=== PATIENT | male | born 1960 | race Caucasian/White ===

== ENCOUNTER 2016-05-06 15:39 | Emergency (ER) | payer MEDICAID, OTHER ==
[~2016-05-06] VITALS: Ht 177.8 cm; Wt 63.0 kg
[~2016-05-06 15:39] MED LIST: Z.0.NO CURRENT MEDS
[2016-05-06 15:48] VITALS: BP 131/89; PULSE 79; RESP 16; TEMP 98.7; O2SAT 99
[2016-05-06 16:21] LABS: GLUCOSE,URINE NEG (NEG); KETONE, URINE NEG (NEG); NITRITE,URINE NEG (NEG); PH, URINE 5.5 (5.0-8.5)
[2016-05-06 16:23] LABS: BLOOD, URINE MOD (NEG)
[2016-05-06 16:26] LABS: METHOD OF COLLECTION CLEAN CATCH; URINE COLOR YELLOW (YELLW/STRAW)
[2016-05-06 16:27] LABS: COMMENT (UR) CULT NOT INDICATED; CULTURE IF INDICATED CULT NOT INDICATED; RBC, URINE 0-3 /hpf (0-3)
[2016-05-06] MEDS ORDERED: KETOROLAC TROMETHAMINE 60 MG/2 ML (IM) VIAL IM ONE (16:45)
--- NOTE | 2016-05-06 16:48 | PD ---
HPI Chief Complaint: Back/ Neck Pain or Injury Time Seen by Provider: 16:22 Travel History International Travel<30 days: No Contact w/Intl Traveler<30days: No Traveled to known affect area: No History of Present Illness HPI Is a 55-year-old man who presents to the emergency department complaining of low back pain is been ongoing for the past month. No worse on the left. There is been no radiation. No associated numbness tingling weakness or gait instability. 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 The nikhil most that time but does do some heavy lifting. No fevers or chills. No urinary symptoms. No other complaints. History Past Medical History Medical History: Denies Significant Hx Tetanus Vaccination: > 5 Years Influenza Vaccination: No Past Surgical History Surgical History: No Previous Surgery Social History Alcohol Use: Yes (2 BEERS, NIGHTLY; LAST DRINK 05/05/16) Tobacco Use: Yes (1 PPD) Allergies-Medications (Allergen,Severity, Reaction): Coded Allergies: No Known Allergies (Unverified , 05/06/16) Reported Meds & Prescriptions Reported Meds & Active Scripts Active Review of Systems Except as stated in HPI: all other systems reviewed are Neg Physical Exam Narrative GENERAL: Well-developed, well-nourished, no acute distress. SKIN: Warm and dry. CARDIOVASCULAR: Warm and well perfused. RESPIRATORY: Normal rate and effort. MUSCULOSKELETAL: Normal appearance of back and bilateral lower extremities. No ecchymosis, swelling, bruising. No rashes. Normal muscle bulk and tone. NEUROLOGICAL: Strength full 5/5 and equal in bilateral lower extremities in proximal and distal muscle groups. 5/5 in large toe flexion and extension. Sensation is intact to light touch throughout. Reflexes symmetric. No clonus. PSYCHIATRIC: Appropriate mood and affect; insight and judgment normal. Data Data Last Documented VS Vital Signs Date Time Temp Pulse Resp B/P Pulse Ox O2 Delivery O2 Flow Rate FiO2 05/06/16 15:48 98.7 79 16 131/89 99 Orders Urinalysis - C+S If Indicated (05/06/16 15:52) Spine, Lumbar Comp W/Obliq (05/06/16 ) Ed Poc Ultrasound (05/06/16 ) Ketorolac Inj (Toradol Inj) (05/06/16 16:45) Labs Laboratory Tests Test 05/06/16 15:55 Urine Collection Type CLEAN CATCH Urine Color YELLOW Urine Turbidity CLEAR Urine pH 5.5 Urine Specific [place] 1.021 Urine Protein NEG mg/dL Urine Glucose (UA) NEG mg/dL Urine Ketones NEG mg/dL Urine Occult Blood MOD Urine Nitrite NEG Urine Bilirubin NEG Urine Leukocyte Esterase NEG Urine RBC 0-3 /hpf Microscopic Urinalysis Comment CULT NOT INDICATED MDM Medical Decision Making Medical Screen Exam Complete: Yes Emergency Medical Condition: Yes Interpretation(s) UA negative Lumbar spine x-ray: Multilevel degenerative disease with small marginal predominantly anterior osteophytes her of the lumbar spine. No acute fracture or listhesis. Differential Diagnosis Strain or sprain, fracture, AAA, contusion, other Narrative Course Medical decision-making 52-year-old male presents nontraumatic low back pain. 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 Bedside ultrasound shows no evidence AAA. Urine is negative. We'll check x-ray for any evidence of fracture or other. Procedures Procedure Narrative Point of care ultrasound: Focus transabdominal ultrasound performed by me at the bedside to evaluate for evidence of AAA. No AAA. Diagnosis Primary Impression: Low back pain Qualified Code: M54.5 - Acute midline low back pain without sciatica Additional Instructions: Take Naprosyn as needed for pain. Follow-up with your primary doctor for not feeling improved in the next 2-3 weeks. Return to the emergency department for any worsening pain, numbness tingling weakness, difficulty walking, or any other new or worsening symptoms. Med/Other Pt SpecificInfo: Prescription(s) given Scripts Naproxen (Naprosyn)500 Mg Roy469 Mg PO BID PRN (PAIN SCALE 1 TO 10) #20 TAB Prov:Yosef Jacobsen MD 05/06/16 Disposition: 01 DISCHARGE HOME Condition: Stable Yosef Jacobsen MD May 06, 2016 16:48
--- NOTE | 2016-05-06 17:00 | RADHPO ---
EXAM DATE/TIME: 05/06/2016 16:38 [facility] COMPARISON: No previous studies available for comparison. INDICATIONS : Lumbar spine pain. No known injury. MEDICAL HISTORY : None. SURGICAL HISTORY : None. ENCOUNTER: Initial ACUITY: 1 month PAIN SCORE: 8/10 LOCATION: Bilateral lumbar spine FINDINGS: There are five non-rib bearing vertebral bodies. The vertebral bodies are in normal alignment withou t evidence of subluxation or scoliosis. Multilevel degenerative disc disease is identified predominan tly anterior marginal osteophytes from L1-2 through L4-5. The posterior elements are intact without evidence of spondylolysis. The pedicles are intact. Bony mineralization is normal. No fracture is identified. CONCLUSION: 1. Multilevel degenerative disc disease with small, marginal, predominantly anterior osteophytes thro ughout the lumbar spine. 2. No acute fracture or listhesis. Joni Shelton MD on May 06, 2016 at 16:57 Board Certified Radiologist. This report was verified electronically.
[2016-05-06] MEDS ORDERED: NAPR500 PO (17:03)
== END 2016-05-06 17:16 | disposition home or self-care (01) ==
LOC: PHED 15:39
DX: M54.5 Low back pain (principal); F17.210 Nicotine dependence, cigarettes, uncomplicated
CPT/HCPCS: 72110; 81001; 96372; 99283; J1885

== ENCOUNTER 2016-10-07 14:20 | Inpatient (IN) | payer OTHER ==
[~2016-10-07] VITALS: Ht 177.8 cm; Wt 65.0 kg
[2016-10-07] VITALS (8 sets, daily range): BP systolic 120–128; BP diastolic 64–79; PULSE 74–78; RESP 16–24; TEMP 98.2; O2SAT 100
[~2016-10-07 14:20] MED LIST changes: +GELFOAM SIZE 100 OTHER ONE; +GENTAMICIN SULFATE 80 MG/2 ML VIAL IRRIGATION ONE; +LACTATED RINGER'S 1000 ML INJ 1,000 ML IV ONE; +NAPR500 PO; +PHENYLEPH/NS 1000 MCG/10 ML SYR IV ONE; +PROPOFOL 200 MG/20 ML AMP IV ONE; +THROMBIN (TOPICAL) 5,000 UNIT VIAL TOPICAL ONE; -Z.0.NO CURRENT MEDS; +ePHEDrine/NS 25 MG/5 ML SYRINGE IV ONE
[2016-10-07] MEDS ORDERED: IOHEXOL 350 MG/ML 10 ML VIAL (for RAD DIAG) IVCONTRAST ONE (14:21)
--- NOTE | 2016-10-07 14:53 | PD ---
HPI Chief Complaint: Neuro Symptoms/ Deficits Time Seen by Provider: 14:26 Travel History International Travel<30 days: No Contact w/Intl Traveler<30days: No Traveled to known affect area: No History of Present Illness HPI 56-year-old male came to the emergency room with history of intracranial bleed. Patient was transferred from [facility] and [facility]. As per the paramedics and the nurse who assisted the patient said that patient earlier this morning was coming down the stairs when he started feeling some left-sided weakness and numbness. He called 911 and by the time EMS arrived they detected some deficit and called a stroke alert. Patient was taken to [facility]. When patient arrived his mental status started to decline and he was intubated emergently in the ER. A CAT scan of the head showed subarachnoid bleed. The ER physician from the hospital discussed the case with the neurosurgeon Dr. Perry who is salesperson [employer] and glassware for [facility] who accepted the patient and patient was transferred here. Patient was brought in emergently on the vent. He was on a propofol drip and well sedated. GCS was 3. He was on a Cardene drip and blood pressure was in the 120s. Patient obviously is unable to give any history. [facility] Past Medical History Narrative Medical List of his past medical, surgical, social and family history is reviewed from the nursing note. Diminished Hearing: No Seizures: Yes Social History Alcohol Use: Yes (2 BEERS, NIGHTLY; LAST DRINK 05/05/16) Tobacco Use: Yes (1 PPD) Substance Use: No Allergies-Medications (Allergen,Severity, Reaction): Coded Allergies: No Known Allergies (Unverified , 05/06/16) Comments No known drug allergies. Reported Meds & Prescriptions Reported Meds & Active Scripts Active Naprosyn (Naproxen) 500 Mg Tab 500 Mg PO BID PRN Narrative Medication List of her past medical, surgical, social and family history is reviewed from the nursing note. Review of Systems Except as stated in HPI: all other systems reviewed are Neg Physical Exam Narrative GENERAL: Unresponsive, intubated, sedated SKIN: Focused skin assessment warm/dry. HEAD: Atraumatic. Normocephalic. EYES: Pupils equal and round. No scleral icterus. No injection or drainage. Pupils 3 mm and reactive to light ENT: No nasal bleeding or discharge. Mucous membranes pink and moist. NECK: Trachea midline. No JVD. Intubated CARDIOVASCULAR: Regular rate and rhythm. No murmur appreciated. RESPIRATORY: No accessory muscle use. Clear to auscultation. Breath sounds equal bilaterally. GASTROINTESTINAL: Abdomen soft, non-tender, nondistended. Hepatic and splenic margins not palpable. MUSCULOSKELETAL: No obvious deformities. No clubbing. No cyanosis. No edema. NEUROLOGICAL: GCS of 3 PSYCHIATRIC: Unable to assess Data Data Last Documented VS Vital Signs Date Time Temp Pulse Resp B/P (MAP) Pulse Ox O2 Delivery O2 Flow Rate FiO2 10/07/16 15:18 78 16 120/71 (87) 100 Room Air 10/07/16 15:00 100 Orders Orders Cta Brain W Iv Contrast W 3d (10/07/16 ) Ct Brain W/O Iv Contrast(Rout) (10/07/16 ) Cta Neck W Iv Contrast W 3d (10/07/16 ) Iohexol 350 Inj (Omnipaque 350 Inj) (10/07/16 14:21) Mannitol Inj (Mannitol Inj) (10/07/16 15:25) Propofol 1000 Mg/100 Ml Inj (Diprivan 10 (10/07/16 15:25) Levetiracetam Inj (Keppra Inj) (10/07/16 15:27) Mannitol Inj (Mannitol Inj) (10/07/16 15:30) Type And Screen (10/07/16 15:33) Sodium Chlor 0.9% 2... W/Nicardipine Inj (10/07/16 15:40) Propofol 1000 Mg/100 Ml Inj (Diprivan 10 (10/07/16 15:40) ^ Infusion (10/07/16 15:40) RASS (10/07/16 15:40) Neurological Rass Scale DARWIN.Q2H (10/07/16 15:40) Complete Blood Count With Diff (10/07/16 15:42) Prothrombin Time / Inr (Pt) (10/07/16 15:42) Act Partial Throm Time (Ptt) (10/07/16 15:42) Basic Metabolic Panel (Bmp) (10/07/16 15:42) Admit Order (Ed Use Only) (10/07/16 15:43) Angiogram, Cerebral Wo Arch (10/07/16 ) [facility] Medical Decision Making Medical Screen Exam Complete: Yes Emergency Medical Condition: Yes Medical Record Reviewed: Yes Differential Diagnosis Subarachnoid hemorrhage Narrative Course 3:[address] Perry was contacted and he is down here to see the patient. He wants the patient to get a angiogram of the brain by IR and see if they can coil. He also requested for 50 g of mannitol which has been ordered. I discussed the case with the grooming assistant and patient has been admitted to the ICU. He'll be going to IR shortly. Critical Care Narrative Aggregate critical care time was 30 minutes. Time to perform other separately billable procedures was not included in the critical care time. My time did not include minutes spent treating any other patients simultaneously or on activities that did not directly contribute to the patient's treatment. The services I provided to this patient were to treat and/or prevent clinically significant deterioration that could result in: Subarachnoid hemorrhage, respiratory failure, ventilator management I provided critical care services requiring my management, as noted below: Chart data review, documentation time, medication orders and management, vital sign assessments/reviewing monitor data, ordering and reviewing lab tests, ordering and interpreting/reviewing x-rays and diagnostic studies, care of the patient and discussion of the patient with the admitting physicians. Procedures EKG Prior to Arrival: No Physician Communication Physician Communication Dr. Sanabria, Dr. Perry Diagnosis Primary Impression: Subarachnoid hemorrhage Additional Impressions: Respiratory failure Qualified Codes: J96.00 - Acute respiratory failure, unspecified whether with hypoxia or hypercapnia Unresponsive Admitting Information Admitting Physician Requests: Admit Sharath Hinojosa MD Oct 07, 2016 14:53
[2016-10-07] MEDS ORDERED: PROPOFOL 1000 MG/100 ML INJ 0 ML ONE (15:25)
[2016-10-07] MEDS ORDERED: MANNITOL INJ 50 ML ONE (15:25)
[2016-10-07] MEDS ORDERED: levETIRAcetam 500 MG/5 ML VIAL IV ONE (15:27)
[2016-10-07] MEDS ORDERED: MANNITOL 12.5 GM/50 ML VIAL IV ONE (15:30)
[2016-10-07] MEDS ORDERED: niCARdipine INJ 25 MG in SODIUM CHLOR 0.9% 250 ML INJ 250 ML IV PRN (15:40)
--- NOTE | 2016-10-07 15:41 | PD.CONS ---
[facility] Service neurosurg Consult Requested By Dr morillo Reason for Consult subarachnoid hemorrhage Primary Care Physician No Primary Care Physician History of Present Illness This is a 56-year-old male brought to the emergency room as an emergency transfer from another institution with history of intracranial bleed. He was transferred from [facility] and [facility]. Apparently the patient said that patient earlier this morning was coming down the stairs when he started feeling some left-sided weakness and numbness. He called 911 and by the time EMS arrived they detected severe neurological deficits and called a stroke alert. No seizure activity reported. No tongue biting. No incontinence of stool or urine. Patient was taken to [facility]. Apparently he was not able to move his right side . When patient arrived his mental status started to decline and he was intubated emergently in the ER for airway protection. A CT scan of the head showed extensive subarachnoid bleed. In addition he had a sizable subdural hematoma. He was brought emergently on the ventilator. He was on a propofol drip and well sedated. GCS was 3. He was on a Cardene drip and blood pressure was in the 120s. Neurosurgical consultation was requested Review of Systems Unobtainable due to his clinical condition ROS Limitations: Clinical Condition, Intubated, Altered Mental Status, Unresponsive Past Family Social History Allergies: Coded Allergies: No Known Allergies (Unverified , 05/06/16) Past Medical History Unobtainable due to his clinical condition Past Surgical History Unobtainable due to his clinical condition Reported Medications Unobtainable due to his clinical condition Active Ordered Medications Current Medications Iohexol (Omnipaque 350 Inj) 100 ml STK-MED ONCE IVCONTRAST Last administered on 10/07/16t 14:21; Start 10/07/16 at 14:21; Stop 10/07/16 at 15:21; Status DC Mannitol 50 ml @ As Directed STK-MED ONCE .ROUTE ; Start 10/07/16 at 15:25; Stop 10/07/16 at 15:26; Status DC Propofol 0 ml @ As Directed STK-MED ONCE .ROUTE ; Start 10/07/16 at 15:25; Stop 10/07/16 at 15:26; Status DC Levetriacetam (Keppra Inj) 1,000 mg STK-MED ONCE IV ; Start 10/07/16 at 15:27; Stop 10/07/16 at 15:28; Status DC Mannitol (Mannitol Inj) 50 gm ONCE ONCE IV ; Start 10/07/16 at 15:30; Stop at 15:31; Status DC Nicardipine HCl 25 mg/Sodium Chloride 260 ml @ 52 mls/hr Q5H PRN IV Blood pressure management; Start 10/07/16 at 15:40 Propofol 100 ml @ 0 mls/hr Q0M PRN IV Ordered RASS; Start 10/07/16 at 15:40 Sodium Chloride 1,000 ml @ 75 mls/hr [id number] IV ; Start 10/07/16 at 16:08; Status UNV Sodium Chloride (NS Flush) 2 ml UNSCH PRN IV FLUSH FLUSH AFTER USING IV ACCESS ; Start 10/07/16 at 16:15; Status UNV Sodium Chloride (NS Flush) 2 ml BID IV FLUSH ; Start 10/07/16 at 21:00; Status UNV Acetaminophen (Tylenol) 650 mg Q6H PRN PO PAIN 1-10 AND/OR FEVER >101F; Start 10/07/16 at 16:15; Status UNV Albuterol/ Ipratropium (Duoneb Neb) 1 ampule Q6HR NEB NEB ; Start 10/07/16 at 22:00; Status UNV Albuterol/ Ipratropium (Duoneb Neb) 1 ampule Q4HR NEB PRN INH SHORTNESS OF BREATH; Start 10/07/16 at 16:15; Status UNV Chlorhexidine Gluconate (Peridex 0.12% Liq) 15 ml BID@08,20 MT ; Start 10/07/16 at 20:00; Status UNV Pantoprazole Sodium (Protonix Inj) 40 mg DAILY IV ; Start 10/08/16 at 09:00; Status UNV Miscellaneous Information 1 Q361D XX ; Start 10/07/16 at 16:15; Status UNV Chlorhexidine Gluconate (Chlorhexidine 2% Cloth) 3 pack Taper DAILY@04 TOP ; Start 10/08/16 at 04:00; Stop 10/04/17 at 03:59; Status UNV Chlorhexidine Gluconate (Chlorhexidine 2% Cloth) 3 pack UNSCH PRN TOP HYGIENIC CARE; Start 10/07/16 at 16:15; Status UNV Insulin Aspart (NovoLOG SUPPLEMENTAL SCALE) 1 Q6HR SQ ; Start 10/07/16 at 18:00 ; Status UNV Propofol 100 ml @ 0 mls/hr Q0M PRN IV SEDATION; Start 10/07/16 at 16:08; Status UNV Nimodipine (Nimotop) 60 mg Q4HR OG-TUBE ; Start 10/07/16 at 20:00; Status UNV Verapamil HCl (Isoptin Inj) 10 mg STK-MED ONCE .ROUTE ; Start 10/07/16 at 16:45 ; Stop 10/07/16 at 16:46; Status DC Nitroglycerin (Nitroglycerin 2% Oint) 1 inch STK-MED ONCE .ROUTE ; Start at 16:55; Stop 10/07/16 at 16:56; Status DC Heparin Sodium (Porcine) (Heparin Inj) 10,000 units STK-MED ONCE .ROUTE ; Start 10/07/16 at 16:56; Stop 10/07/16 at 16:57; Status DC Family History Unobtainable due to his clinical condition Social History Unobtainable due to his clinical condition Physical Exam Vital Signs Vital Signs Date Time Temp Pulse Resp B/P (MAP) Pulse Ox O2 Delivery O2 Flow Rate FiO2 10/07/16 15:18 78 16 120/71 (87) 100 Room Air 10/07/16 15:00 100 100 10/07/16 14:41 50 10/07/16 14:34 100 50 10/07/16 14:29 76 24 123/79 (94) 100 Physical Exam The patient is intubated and sedated. No response to pain. GCS 3 Cranial Nerves: Pupils equal, round, reactive to light. Eyes appear conjugated. There was no nystagmus, papilledema. Face musculature appeared symmetrical at rest. Face sensation, olfaction, visual rose, and hearing cannot be adequately assessed due to his neurological condition. The patient has a corneal reflex. He has a gag reflex. The sternocleidomastoid and trapezius are symmetrical. Cervical Spine: His neck is stiff, with nuchal rigidity. Motor: Normal response to pain Reflexes: Deep tendon reflexes are 1+ and symmetrical in the biceps, triceps, and brachioradialis, bilaterally, in the upper extremities. In the lower extremities, the patellar and ankles are 1+, bilaterally. There is a bilateral plantar flexion response. There is no clonus Sensory: On examination there is NO response to painful stimuli Cerebellar: Examination cannot be adequately assessed due to the patient's neurological condition. Imaging Last Impressions Neck CTA 10/07/16 0000 Signed Impressions: Service Date/Time: Friday, October 07, 2016 15:03 - CONCLUSION: 1. Mild carotid bulb atherosclerotic calcification bilaterally. However, no significant stenosis is present in either internal carotid artery. 2. Paranasal sinus mucoperiosteal thickening. 3. Please refer to brain CTA report for description of the intracranial findings. Yosvany Ramirez MD Head CTA 10/07/16 0000 Signed Impressions: Service Date/Time: Friday, October 07, 2016 15:03 - CONCLUSION: 1. 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 2. Large left subdural hematoma measuring 1.3 cm in depth with a significant, 1.6 cm left to right subfalcine shift. Joni Shelton MD Head CT 10/07/16 0000 Signed Impressions: Service Date/Time: Friday, October 07, 2016 15:01 - CONCLUSION: Extensive intracranial hemorrhage on the left as detailed above with midline shift of 14 mm left to right. See the CTA reported separately. Santos Crockett Jr., MD Attending Statement Neuro. neuro checks in a serial fashion. An emergency CT a has been order . Discussed with his alternatives of treatment. I recommend an emergency cerebral angiography with possible endovascular coiling of the aneurysm followed by a surgical decompression. I have discussed the case with the neuroradiologist on-call, Dr. Gutierrez as well as the emergency room physician This patient is in a truly critical condition as he has also developed diffuse brain edema, a left ntemporal lobe parenchymal hematoma, and a left sided subdural hematoma which also needs a prompt surgical decompression. I discussed with his the details including the [id number] details of the surgical procedure, its indications, alternatives, risks, and potential complications. Risks and potential complications include, but are not limited to, infection, blood loss, CSF leak, partial or complete loss of sight in one or both eyes, paresis, paralysis, permanent pain or difficulty swallowing, loss of bowel or bladder function, complications from anesthesia, blood clot, stroke, myocardial infarction, or even . Antihypertensives to keep her blood pressure between 03 06/ millimeters of medically anterior the aneurysm is secure He is at high surgical risk Keppra for prophylaxis of seizures. Nimotop for prophylaxis of vasospasm Pulmonary. Acute respiratory failure. Full mechanical ventilation in assist control mode of mechanical ventilation. Follow up chest xray in the morning Aggressive pulmonary toilette, nasotracheal suction, and breathing treatments with nebulizers. PT and OT evaluation Nutrition. Oral diet Renal. monitor closely urine output, BUN and creatinine Endocrine. Monitor serial Acu checks and SSI as needed in detail ID monitor for signs of infection Protonix for stress ulcer prophylaxis Colt so and SCD's for DVT prophylaxis Discussed in detail with his and sister and Dr Driscoll, dr Hien Perry,George Chambers MD Oct 07, 2016 15:40
--- NOTE | 2016-10-07 15:46 | RADRPT ---
EXAM DATE/TIME: 10/07/2016 15:01 [facility] COMPARISON: CT BRAIN W/O CONTRAST, September 20, 2011, 20:25. INDICATIONS : Subdural,transfer from [facility].Headache. RADIATION DOSE: 36.45 CTDIvol (mGy) MEDICAL HISTORY : Seizures. SURGICAL HISTORY : Non-responsive. ENCOUNTER: Initial ACUITY: 1 day PAIN SCALE: 6/10 LOCATION: cranial TECHNIQUE: Multiple contiguous axial images were obtained of the head. Using automated exposure control and adj ustment of the mA and/or kV according to patient size, radiation dose was kept as low as reasonably a chievable to obtain optimal diagnostic quality images. DICOM format image data is available electro nically for review and comparison. FINDINGS: Significant intracranial hemorrhage is observed. There is a subarachnoid component centered within th e suprasellar cistern and extending along the sylvian fissure. This subdural hemorrhage is also obser dalia overlying the left frontal and parietal lobes with extension over the temporal lobe as well. Maxi mum thicknesses 14 mm. Subdural blood is seen tracking along the falx and left aspect of the tentoriu m. There is midline shift from left to right of 11 mm. The ventricles remain patent although the left lateral ventricle is somewhat compressed. Intraventricular hemorrhage is small volume within the fou rth ventricle. CONCLUSION: Extensive intracranial hemorrhage on the left as detailed above with midline shift of 14 mm left to r ight. See the CTA reported separately. Santos Crockett Jr., MD on October 07, 2016 at 15:38 Board Certified Radiologist. This report was verified electronically.
--- NOTE | 2016-10-07 16:05 | RADRPT ---
EXAM DATE/TIME: 10/07/2016 15:03 [facility] COMPARISON: No previous studies available for comparison. INDICATIONS : Subdural, transfer from [facility].Headaches. IV CONTRAST: 100 cc Omnipaque 350 (iohexol) IV RADIATION DOSE: 30.27 CTDIvol (mGy) ; Combined studies MEDICAL HISTORY : Seizures. SURGICAL HISTORY : Non-responsive. ENCOUNTER: Initial ACUITY: 1 day PAIN SCALE: Non-responsive LOCATION: cranial TECHNIQUE: Volumetric scanning was performed using a multi-row detector CT scanner. The data was post processed with a variety of visualization algorithms including full volume maximum intensity projection, multi -planar sliding thin slab reformation, curved planar reformation, and surface rendering techniques. Using automated exposure control and adjustment of the mA and/or kV according to patient size, radiat ion dose was kept as low as reasonably achievable to obtain optimal diagnostic quality images. DICO M format image data is available electronically for review and comparison. FINDINGS: There is excellent visualization of the major intracranial arteries out to the second-order branch ve ssels. A large aneurysm emanates from the expected location of the left posterior communicating arter y and measures 6 x 8 mm. On the axial source images, I believe that there is an active stain of blood near the ruptured teat in addition to the significant subarachnoid blood. No additional aneurysms id entified. In addition, the patient has a prominent subdural hematoma measuring approximately 1.3 cm i n depth with a large, 1.6 cm left to right subfalcine shift. CONCLUSION: 1. 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 2. Large left subdural hematoma measuring 1.3 cm in depth with a significant, 1.6 cm left to right byrnes bfalcine shift. Joni Shelton MD on October 07, 2016 at 15:28 Board Certified Radiologist. This report was verified electronically.
[2016-10-07] MEDS ORDERED: SODIUM CHLOR 0.9% 1000 ML INJ 1,000 ML IV SCH (16:08)
[2016-10-07] MEDS ORDERED: PROPOFOL 1000 MG/100 ML INJ 100 ML IV PRN (16:08)
[2016-10-07] MEDS ORDERED: MISCELLANEOUS NURSING INFORMATION XX SCH (16:15)
[2016-10-07] MEDS ORDERED: CHLORHEXIDINE GLUCONATE 2 % 1 PACK (2 CLOTHS) TOP PRN (16:15)
[2016-10-07] MEDS ORDERED: ACETAMINOPHEN 325 MG TAB PO PRN (16:15)
[2016-10-07] MEDS ORDERED: SODIUM CHLORIDE 0.9% FLUSH 10 ML FLUSH IV FLUSH PRN (16:15)
[2016-10-07 16:37] LABS: AUTOMATED NEUTROPHIL # 10.1 TH/MM3 (1.8-7.7); BASOPHIL % 0.2 % (0.0-2.0); HEMATOCRIT 38.7 % (39.0-51.0); HEMO FLAGS DIFF FINAL; LYMPH % 5.2 % (9.0-44.0); LYMPHOCYTE # 0.6 TH/MM3 (1.0-4.8); MEAN CELL VOLUME 98.3 FL (80.0-100.0); MEAN CORPUSCULAR HEMOGLOBIN 32.1 PG (27.0-34.0); MEAN CORPUSCULAR HGB CONC 32.7 % (32.0-36.0); NEUT % 88.6 % (16.0-70.0); PLATELET COUNT 172 TH/MM3 (150-450); RED BLOOD COUNT 3.94 MIL/MM3 (4.50-5.90); RED CELL DISTRIBUTION WIDTH 13.7 % (11.6-17.2); WHITE BLOOD COUNT 11.4 TH/MM3 (4.0-11.0)
[2016-10-07 16:42] LABS: PROTHROMBIN TIME - PATIENT 10.8 SEC (9.8-11.6)
--- NOTE | 2016-10-07 16:44 | RADRPT ---
EXAM DATE/TIME: 10/07/2016 15:03 [place] COMPARISON: No previous studies available for comparison. INDICATIONS : Subdural, headaches, transfer from [facility]. IV CONTRAST: 100 cc Omnipaque 350 (iohexol) IV ; Cumulative dose for multiple exams. RADIATION DOSE: 30.27 CTDIvol (mGy) ; Combined studies MEDICAL HISTORY : Seizures. SURGICAL HISTORY : Non-responsive. ENCOUNTER: Initial ACUITY: 1 day PAIN SCALE: Non-responsive LOCATION: cranial Elevated flow velocities and ICA/CCA ratios have been found to correlate with increased degrees of vessel stenosis, calculated as percentage of diameter relative to a normal segment of distal ICA/CCA. TECHNIQUE: Volumetric scanning was performed using a multirow detector CT scanner. The data was post processed with a variety of visualization algorithms including full-volume maximum intensity projection, multip lanar sliding thin-slab reformation, curved-planar reformation, and surface-rendering techniques. Us ing automated exposure control and adjustment of the mA and/or kV according to patient size, radiatio n dose was kept as low as reasonably achievable to obtain optimal diagnostic quality images. DICOM f ormat image data is available electronically for review and comparison. FINDINGS: AORTIC ARCH: Aortic arch and major branches demonstrate no significant abnormality. Origins are partially obscured due to the artifact from the contrast bolus RIGHT CAROTID: There is mild atherosclerotic disease in the carotid bulb. However, no significant stenosis is presen t. LEFT CAROTID: There is mild atherosclerotic disease in the carotid bulb but no significant stenosis is present. Ext ernal carotid artery demonstrates no abnormality. VERTEBRALS: Left vertebral artery is dominant. There is calcification at the origin of the vertebral arteries shereen aterally. There is severe emphysema at the lung apices. Patient is intubated and nasogastric tube is present. CONCLUSION: 1. Mild carotid bulb atherosclerotic calcification bilaterally. However, no significant stenosis is p resent in either internal carotid artery. 2. Paranasal sinus mucoperiosteal thickening. 3. Please refer to brain CTA report for description of the intracranial findings. Yosvany Ramirez MD on October 07, 2016 at 16:38 Board Certified Radiologist. This report was verified electronically.
[2016-10-07] MEDS ORDERED: VERAPAMIL HCL 5 MG/2 ML VIAL ONE (16:45)
[2016-10-07 16:48] LABS: POTASSIUM 4.1 MEQ/L (3.5-5.1)
[2016-10-07] MEDS ORDERED: NITROGLYCERIN 2% OINT 1 GM PACKET ONE (16:55)
[2016-10-07] MEDS ORDERED: HEPARIN SODIUM - IV 10,000 UNITS/10 ML VIAL ONE (16:56)
--- NOTE | 2016-10-07 18:07 | PD.RAD ---
Post Procedure Progress Note Pre Procedure Diagnosis: (1) Intracranial aneurysm (2) Subarachnoid hemorrhage due to ruptured aneurysm (3) Subdural hematoma Post Procedure Diagnosis: (1) Intracranial aneurysm (2) Subdural hematoma (3) Subarachnoid hemorrhage due to ruptured aneurysm Procedure Date: Oct 07, 2016 Supervising Radiologist: Joni Shelton Assisting Radiologist: Santos Crockett Jr., MD Proceduralist/Assist: Darline Cavazos, RT(R), Alanna Ponce RT(R)() Anesthesia: General Plan of Activity Patient to Unit: Other (OR for decompression/drain) Patient Condition: Critical See PACS Report for procedural detail/treatment Vascular-Arterial Procedure Procedure 1 Procedure Site: Cerebral (left ICA) Procedure(s): Angiogram, Intracranial Aneurysm Repair Access Access Site(s): Right Femoral Artery Closure Site(s): Right vascular closure device (PerClose) Findings: Large left P-comm aneurysm. 4 coils - 7-21, 6-15, 6-15 and 5-15. Dome packed and patient emergently transported to OR for decompression. Joni Shelton MD Oct 07, 2016 18:07
[2016-10-07] MEDS: ceFAZolin 2 GM PREMIX 50 ML IV SCH (18:24)
[2016-10-07] MEDS ORDERED: CALCIUM GLUCONATE 10% 1 GM/10 ML VIAL IV PRN (18:30)
[2016-10-07] MEDS ORDERED: MORPHINE SULFATE 4 MG/ML INJ IV PUSH PRN (18:30)
[2016-10-07] MEDS ORDERED: SODIUM CHLORIDE 0.9% FLUSH 5 ML FLUSH IVF PRN (18:30)
[2016-10-07] MEDS ORDERED: BISACODYL 10 MG SUPP RECTAL PRN (18:30)
[2016-10-07] MEDS ORDERED: MAGNESIUM SULFATE INJ 4 GM in SODIUM CHLORIDE 0.9% INJ 100 ML IV PRN (18:30)
[2016-10-07] MEDS ORDERED: ONDANSETRON HCL 4 MG/2 ML VIAL IV PRN (18:30)
[2016-10-07] MEDS ORDERED: IODIXANOL 320 MG/ML 50 ML VIAL (for RAD SPEC) I-ARTERIAL ONE (18:38)
[2016-10-07] MEDS ORDERED: GLUCAGON 1 MG/ML VIAL OTHER PRN (19:15)
[2016-10-07] MEDS ORDERED: MIDAZOLAM HCL 2 MG/2 ML VIAL ONE (19:51)
[2016-10-07] MEDS ORDERED: fentaNYL CITRATE 250 MCG/5 ML AMP ONE (20:32)
[2016-10-07] MEDS: PROPOFOL 1000 MG/100 ML INJ 100 ML IV PRN ×2 (20:34→23:01)
[2016-10-07] MEDS: niMODipine 30 MG CAP OG-TUBE SCH ×2 (20:37→23:00)
[2016-10-07] MEDS: CHLORHEXIDINE 0.12% (ORAL KIT) 15 ML CUP MT SCH (20:37)
[2016-10-07] MEDS: SODIUM CHLORIDE 0.9% FLUSH 5 ML FLUSH IVF SCH (20:37)
[2016-10-07] MEDS: DOCUSATE SODIUM 100 MG CAP PO SCH (20:37)
[2016-10-07] MEDS: NS + KCL 20 MEQ INJ 1,000 ML IV SCH (20:37)
[2016-10-07] MEDS ORDERED: SODIUM CHLORIDE 0.9% FLUSH 10 ML FLUSH IV FLUSH SCH (21:00)
--- NOTE | 2016-10-07 21:21 | RADRPT ---
EXAM DATE/TIME: 10/07/2016 20:53 [place] COMPARISON: No previous studies available for comparison. INDICATIONS : Shortness of breath. MEDICAL HISTORY : None. SURGICAL HISTORY : None. ENCOUNTER: Initial ACUITY: 1 day PAIN SCORE: Non-responsive. LOCATION: Bilateral chest FINDINGS: No infiltrate, effusion or pneumothorax demonstrated. Normal heart size. Endotracheal tube tip is about 4 cm above the jenna. There is a nasogastric tube with tip in the upp er stomach, sidehole above the GE junction. CONCLUSION: 1. Clear lungs. 2. A properly positioned endotracheal tube. 3. Nasogastric tube tip is in the upper stomach. The side hole is above the GE junction. Yosvany Butler MD on October 07, 2016 at 21:18 Board Certified Radiologist. This report was verified electronically.
--- NOTE | 2016-10-07 21:42 | HHI.HP ---
HPI Service Critical Care Medicine Primary Care Physician No Primary Care Physician Admission Diagnosis subarachnoid hemorrhage, respiratory failure Diagnosis: Travel History International Travel<30 Days: No Contact w/Intl Traveler <30 Da: No Traveled to Known Affected Are: No History of Present Illness 56-year-old male presents with intracranial bleed. Patient was transferred from [facility]. As per the paramedics and the nurse who assisted the patient said that patient earlier this morning was coming down the stairs when he started feeling some left-sided weakness and numbness. He called 911 and by the time EMS arrived they detected some deficit and called a stroke alert. Patient was taken to [facility]. When patient arrived his mental status started to decline and he was intubated emergently in the ER. A CAT scan of the head showed subarachnoid and subdural bleed. He was taking emergently to an angio suite for coiling of the aneurysm and later on to OR for subdural hematoma evacuation. Review of Systems ROS Unobtainable patient is sedated and intubated Past Family Social History Allergies: Coded Allergies: No Known Allergies (Unverified , 05/06/16) Past Medical History Hypertension Past Surgical History Unobtainable Reported Medications Reported Meds & Active Scripts Active Naprosyn (Naproxen) 500 Mg Tab 500 Mg PO BID PRN Active Ordered Medications Current Medications Medications (Trade) Dose Ordered Sig/Adali Route PRN Reason Start Time Stop Time Status Last Admin Dose Admin Nicardipine HCl 25 mg/Sodium Chloride 260 ml @ 52 mls/hr Q5H PRN IV Blood pressure management 10/07/16 15:40 Albuterol/ Ipratropium (Duoneb Neb) 1 ampule Q6HR NEB NEB 10/07/16 22:00 10/08/16 04:09 Albuterol/ Ipratropium (Duoneb Neb) 1 ampule Q4HR NEB PRN INH SHORTNESS OF BREATH 10/07/16 16:15 Chlorhexidine Gluconate (Peridex 0.12% Liq) 15 ml BID@08,20 [place] 10/07/16 20:00 10/07/16 20:37 Miscellaneous Information 1 Q361D XX 10/07/16 16:15 Chlorhexidine Gluconate (Chlorhexidine 2% Cloth) 3 pack Taper DAILY@04 [facility] 10/08/16 04:00 10/04/17 03:59 10/08/16 03:48 Chlorhexidine Gluconate (Chlorhexidine 2% Cloth) 3 pack UNSCH PRN TOP HYGIENIC CARE 10/07/16 16:15 Insulin Aspart (NovoLOG SUPPLEMENTAL SCALE) 1 Q6HR SQ 10/07/16 18:00 Nimodipine (Nimotop) 60 mg Q4HR OG-TUBE 10/07/16 20:00 10/08/16 03:47 Potassium Chloride/Sodium Chloride 1,000 ml @ 100 mls/hr Q10H IV 10/07/16 18:20 10/08/16 03:48 IV Flush (NS Flush) 2 ml UNSCH PRN IVF FLUSH AFTER USING IV ACCESS 10/07/16 18:30 IV Flush (NS Flush) 2 ml BID IVF 10/07/16 21:00 10/07/16 20:37 Cefazolin Sodium/ Dextrose 50 ml @ 100 mls/hr Q8H IV 10/07/16 19:00 10/08/16 11:29 10/08/16 01:50 Levetriacetam 500 mg/Sodium Chloride 105 ml @ 400 mls/hr Q12H IV 10/08/16 06:00 Bisacodyl (Dulcolax Supp) 10 mg DAILY PRN RECTAL CONSTIPATION 10/07/16 18:30 Docusate Sodium (Colace) 100 mg BID PO 10/07/16 21:00 10/07/16 20:37 Pantoprazole Sodium (Protonix) 40 mg DAILY PO 10/08/16 09:00 Pantoprazole Sodium (Protonix Inj) 40 mg DAILY IVP 10/08/16 09:00 Ondansetron HCl (Zofran Inj) 4 mg Q6H PRN IV NAUSEA OR VOMITING 10/07/16 18:30 Calcium Gluconate (Calcium Gluconate Inj) 1 gm UNSCH PRN IV SEE LABEL COMMENTS 10/07/16 18:30 Potassium Chloride 100 ml @ 50 mls/hr UNSCH PRN IV POTASSIUM LESS THAN 4 10/07/16 18:30 Magnesium Sulfate 4 gm/Sodium Chloride 108 ml @ 108 mls/hr UNSCH PRN IV MAGNESIUM LESS THAN 2 10/07/16 18:30 Acetaminophen/ Hydrocodone Bitart (Morrill 10-325 Mg) 1 tab Q4H PRN PO PAIN SCALE 1 TO 5 10/07/16 18:30 Acetaminophen/ Hydrocodone Bitart (Morrill 10-325 Mg) 2 tab Q4H PRN PO PAIN SCALE 6 TO 10 10/07/16 18:30 10/08/16 03:47 Morphine Sulfate (Morphine Inj) 2 mg Q2H PRN IV PUSH PAIN SCALE 1 TO 6 10/07/16 18:30 Morphine Sulfate (Morphine Inj) 4 mg Q2H PRN IV PUSH PAIN SCALE 7 TO 10 10/07/16 18:30 10/08/16 01:55 Acetaminophen (Tylenol) 650 mg Q4H PRN PO TEMPERATURE > 101.5 F 10/07/16 18:30 Dextrose (D50w (Vial) Inj) 50 ml UNSCH PRN IV PUSH HYPOGLYCEMIA - SEE COMMENTS 10/07/16 19:15 Glucagon (Glucagon Inj) 1 mg UNSCH PRN OTHER HYPOGLYCEMIA-SEE COMMENTS 10/07/16 19:15 Propofol 100 ml @ 0 mls/hr TITRATE PRN IV Sedation 10/07/16 23:15 10/08/16 01:50 Family History Unobtainable Social History Unobtainable Physical Exam Vital Signs Vital Signs Date Time Temp Pulse Resp B/P (MAP) Pulse Ox O2 Delivery O2 Flow Rate FiO2 10/07/16 21:10 100 50 10/07/16 15:18 78 16 120/71 (87) 100 Room Air 10/07/16 15:00 100 100 10/07/16 14:41 50 10/07/16 14:34 100 50 10/07/16 14:29 76 24 123/79 (94) 100 Physical Exam GENERAL: Sedated and intubated SKIN: Warm and dry. HEAD: Status post left craniectomy EYES: No scleral icterus. No injection or drainage. NECK: Supple, trachea midline. No JVD or lymphadenopathy. CARDIOVASCULAR: Regular rate and rhythm without murmurs, gallops, or rubs. RESPIRATORY: Breath sounds equal bilaterally. No accessory muscle use. GASTROINTESTINAL: Abdomen soft, non-tender, nondistended. MUSCULOSKELETAL: No cyanosis, or edema. BACK: Nontender without obvious deformity. NEURO EXAM: GCS: M1 Vt E1 Mental Status: The patient is sedated and intubated Reflexes: Biceps, patellar, and Achilles are 2/4 bilaterally. No clonus. Laboratory Laboratory Tests Test 10/07/16 16:00 White Blood Count 11.4 Red Blood Count 3.94 Hemoglobin 12.6 Hematocrit 38.7 Mean Corpuscular Volume 98.3 Mean Corpuscular Hemoglobin 32.1 Mean Corpuscular Hemoglobin Concent 32.7 Red Cell Distribution Width 13.7 Platelet Count 172 Mean Platelet Volume 9.4 Neutrophils (%) (Auto) 88.6 Lymphocytes (%) (Auto) 5.2 Monocytes (%) (Auto) 6.0 Eosinophils (%) (Auto) 0.0 Basophils (%) (Auto) 0.2 Neutrophils # (Auto) 10.1 Lymphocytes # (Auto) 0.6 Monocytes # (Auto) 0.7 Eosinophils # (Auto) 0.0 Basophils # (Auto) 0.0 CBC Comment DIFF FINAL Differential Comment Prothrombin Time 10.8 Prothromb Time International Ratio 1.0 Activated Partial Thromboplast Time 25.0 Blood Urea Nitrogen 16 Creatinine 0.97 Random Glucose 199 Calcium Level 8.6 Sodium Level 138 Potassium Level 4.1 Chloride Level 103 Carbon Dioxide Level 25.0 Anion Gap 10 Estimat Glomerular Filtration Rate 81 Result Diagram: 10/07/16 1600 10/07/16 1600 Imaging Last 24 hours Impressions Chest X-Ray 10/07/16 1700 Signed Impressions: Service Date/Time: Friday, October 07, 2016 20:53 - CONCLUSION: 1. Clear lungs. 2. A properly positioned endotracheal tube. 3. Nasogastric tube tip is in the upper stomach. The side hole is above the GE junction. MD Jack Greer VTE Risk Assessment Jack VTE Risk Assessment: Mod/High Risk (score >= 2) VTE Pharm Contraindication: Hemorrhage Caprini Risk Assessment Model Point Value = 1 Point Value = 2 Point Value = 3 Point Value = 5 Age 41-60 Minor surgery BMI > 25 kg/m2 Swollen legs Varicose veins or History of unexplained or recurrent spontaneous Oral contraceptives or hormone replacement Sepsis (< 1 month) Serious lung disease, including pneumonia (< 1 month) Abnormal pulmonary function Acute myocardial infarction Congestive heart failure (< 1 month) History of inflammatory bowel disease Medical patient at bed rest Age 61-74 Arthroscopic surgery Major open surgery (> 45 min) Laparoscopic surgery (> 45 min) Malignancy Confined to bed (> 72 hours) Immobilizing plaster cast Central venous access Age >= 75 History of VTE Family history of VTE Factor V Leiden Prothrombin [id number] Lupus anticoagulant Anticardiolipin antibodies Elevated serum homocysteine Heparin-induced thrombocytopenia Other congenital or acquired thrombophilia Stroke (< 1 month) Elective arthroplasty Hip, pelvis, or leg fracture Acute spinal cord injury (< 1 month) Prophylaxis Regimen Total Risk Factor Score Risk Level Prophylaxis Regimen 0-1 Low Early ambulation 2 Moderate Order ONE of the following: *Sequential Compression Device (SCD) *Heparin 5000 units SQ BID 3-4 Higher Order ONE of the following medications: *Heparin 5000 units SQ TID *Enoxaparin/Lovenox 40 mg SQ daily (WT < 150 kg, CrCl > 30 mL/min) *Enoxaparin/Lovenox 30 mg SQ daily (WT < 150 kg, CrCl > 10-29 mL/min) *Enoxaparin/Lovenox 30 mg SQ BID (WT < 150 kg, CrCl > 30 mL/min) AND/OR *Sequential Compression Device (SCD) 5 or more Highest Order ONE of the following medications: *Heparin 5000 units SQ TID (Preferred with Epidurals) *Enoxaparin/Lovenox 40 mg SQ daily (WT < 150 kg, CrCl > 30 mL/min) *Enoxaparin/Lovenox 30 mg SQ daily (WT < 150 kg, CrCl > 10-29 mL/min) *Enoxaparin/Lovenox 30 mg SQ BID (WT < 150 kg, CrCl > 30 mL/min) AND *Sequential Compression Device (SCD) Assessment and Plan Assessment and Plan Respiratory failure - Intubated for an airway protection - No weaning until neurologically stable - Mechanical ventilation - Vent bundle - Chest x-ray and ABG daily Subarachnoid/subdural bleed - Aneurysm - Alvarado Rodriguez 5 - Carroll grade 4 - Status post successful coiling embolization - Status post subdural hematoma evacuation - Monitor ICPs - SBP controlled with the goal less than 180 - TCD's daily - Monitor for vasospasm - Management per neurosurgery - Nimodipine for vasospasm prophylaxis - Keppra for seizure prophylaxis Hypertension - Hydralazine and labetalol when necessary to keep SBP less than 180 DVT GI prophylaxis - SCDs - Teds - No pharmacological DVT prophylaxis due to ICH for next 48 hours - Reassess for pharmacological prophylaxis after 48 hours per neurosurgery - Pepcid Critical Care: The total critical care time was 35 minutes. Time to perform other separately billable procedures was not included in the critical care time. Florian Driscoll MD Oct 07, 2016 21:42
[2016-10-07] MEDS: INSULIN ASPART SUPPLEMENTAL SCALE SQ SCH (23:01)
[2016-10-08] VITALS (16 sets, daily range): BP systolic 107–136; BP diastolic 65–75; PULSE 74–95; RESP 22–29; TEMP 98.1–100.2; O2SAT 98–100
[2016-10-08] MEDS: ceFAZolin 2 GM PREMIX 50 ML IV SCH ×2 (01:50→10:30)
[2016-10-08] MEDS: PROPOFOL 1000 MG/100 ML IV PRN ×5 (01:50→20:22)
[2016-10-08] MEDS: niMODipine 30 MG CAP OG-TUBE SCH ×6 (03:47→22:39)
[2016-10-08] MEDS: ACETAMINOPHEN/HYDROcodone 325 MG/10 MG TAB PO PRN ×2 (03:47→20:21)
[2016-10-08] MEDS: CHLORHEXIDINE GLUCONATE 2 % 1 PACK (2 CLOTHS) TOP SCH (03:48)
[2016-10-08] MEDS: NS + KCL 20 MEQ INJ 1,000 ML IV SCH ×3 (03:48→18:34)
[2016-10-08] MEDS: RESP: ALBUTEROL 2.5 MG/IPRATROPIUM 0.5 MG NEB (SCH) NEB ×4 (04:09→19:59)
[2016-10-08] MEDS: levETIRAcetam INJ 500 MG in SODIUM CHLORIDE 0.9% INJ 100 ML IV SCH ×2 (05:47→18:26)
[2016-10-08 05:52] LABS: AUTOMATED NEUTROPHIL # 6.3 TH/MM3 (1.8-7.7); BASOPHIL # 0.1 TH/MM3 (0-0.2); BASOPHIL % 0.9 % (0.0-2.0); EOSINOPHIL # 0.1 TH/MM3 (0-0.4); EOSINOPHIL % 0.6 % (0.0-4.0); HEMATOCRIT 32.2 % (39.0-51.0); HEMO FLAGS DIFF FINAL; LYMPH % 20.1 % (9.0-44.0); LYMPHOCYTE # 1.9 TH/MM3 (1.0-4.8); MEAN CELL VOLUME 97.3 FL (80.0-100.0); MEAN CORPUSCULAR HEMOGLOBIN 33.1 PG (27.0-34.0); MONO % 10.6 % (0.0-8.0); NEUT % 67.8 % (16.0-70.0); PLATELET COUNT 156 TH/MM3 (150-450); RED BLOOD COUNT 3.31 MIL/MM3 (4.50-5.90); RED CELL DISTRIBUTION WIDTH 13.5 % (11.6-17.2); WHITE BLOOD COUNT 9.3 TH/MM3 (4.0-11.0)
[2016-10-08] MEDS: INSULIN ASPART SUPPLEMENTAL SCALE SQ SCH ×4 (06:00→22:39)
[2016-10-08 06:02] LABS: ALKALINE PHOSPHATASE 39 U/L (45-117); ALT (GPT) 12 U/L (12-78); ANION GAP 6 MEQ/L (5-15); AST (GOT) 10 U/L (15-37); BICARBONATE 26.3 MEQ/L (21.0-32.0); BLOOD UREA NITROGEN 11 MG/DL (7-18); CHLORIDE 109 MEQ/L (98-107); GLOMERULAR FILTRATION RATE 95 ML/MIN (>89); POTASSIUM 3.8 MEQ/L (3.5-5.1); SODIUM (NA) 141 MEQ/L (136-145); TOTAL BILIRUBIN ADULT 0.3 MG/DL (0.2-1.0)
[2016-10-08] MEDS: CHLORHEXIDINE 0.12% (ORAL KIT) 15 ML CUP MT SCH ×2 (08:00→20:22)
[2016-10-08] MEDS: PANTOPRAZOLE SODIUM 40 MG VIAL IVP SCH (08:16)
[2016-10-08] MEDS: PANTOPRAZOLE SOD 40 MG DELAYED RELEASE TAB PO SCH (08:16)
[2016-10-08] MEDS: SODIUM CHLORIDE 0.9% FLUSH 5 ML FLUSH IVF SCH ×2 (08:16→20:23)
[2016-10-08] MEDS: DOCUSATE SODIUM 100 MG CAP PO SCH ×3 (08:23→20:21)
[2016-10-08] MEDS ORDERED: PANTOPRAZOLE SODIUM 40 MG VIAL IV SCH (09:00)
--- NOTE | 2016-10-08 11:39 | PD.OP ---
Operative Report Date of Surgery: Oct 07, 2016 Preoperative Diagnosis: Subarachnoid Hemorrhage grade 4 Postoperative Diagnosis: Subarachnoid Hemorrhage grade 4 Procedure: Right frontal Anasco hole with placement of a ventriculostomy catheter Anesthesia: general Surgeon: George Perry Enforcement Manager(s): NUVIA Operation and Findings: INDICATIONS FOR THE PROCEDURE The patient is an adult male who was brought to [facility] with a severe subarachnoid hemorrhage. He had a GCS of 3. CT of the brain showed extensive subarachnid hemorrhage. He underwent coiling of the aneurysm. Placement of ventriculostomy was indicated as recommended by the Trauma Commitee of [place] [employer] DETAILS OF THE SURGICAL PROCEDURE The frontal area was shaved, prepped and draped in the usual sterile fashion. An entry point was selected 90 millimeters posterior to the supraorbital rim and 25 millimeters from the midline. The area was infiltrated with 1% lidocaine with epinephrine. A skin incision was made with a #15 blade down to the level of the periosteum. A self retaining retractor was placed. Using a TPS drill with the craniotome attachment, a ezio hole was made. The dura was carefully opened with a 11 bladed knife and a ventriculostomy catheter was advanced into the ventricular system. At a depth of 60 millimeters, cerebrospinal fluid was obtained. Opening pressure was 20 centimeters of water. A specimen of cerebrospinal fluid was collected and sent to the lab for analysis of the glucose, protein, cell count and cultures. The catheter was then tunneled under the galea and externalized through a separate stab incision. The incision was closed with 3-0 nylon in a single plane. The patient tolerated the procedure well. COMPLICATIONS There were no intraoperative complications. BLOOD LOSS Blood loss was minimal. George Perry MD Oct 08, 2016 11:39
--- NOTE | 2016-10-08 11:51 | PD.OP ---
Operative Report Date of Surgery: Oct 07, 2016 Preoperative Diagnosis: SUbarachnoid hemorrhage with diffuse brain edema, subdural and intrapaerenchymal hemorrhage Postoperative Diagnosis: SUbarachnoid hemorrhage with diffuse brain edema, subdural and intrapaerenchymal hemorrhage Procedure: Left frontal temporal parietal decompressive craniectomy, duroplasty, evacuation of subdural hematoma Anesthesia: general Surgeon: George Perry Patient Assistant(s): Hanny eli Operation and Findings: NDICATIONS FOR THE PROCEDURE The patient is an adult male who was brought to [facility] with a severe subarachnoid hemorrhage. He had a GCS of 3. CT of the brain showed extensive subarachnid hemorrhage. He underwent coiling of the aneurysm. He had an extensive left acute subdural hematoma with mass effect and midline shift. A surgical decompression was indicated as recommended by the Trauma Commitee of [place] [employer] in an attempot to save his life. We have discussed the details including the [id number] details of the surgical procedure, its indications, alternatives, risks, and potential complications. Risks and potential complications include, but are not limited to, infection, blood loss, CSF leak, partial or complete loss of sight in one or both eyes, paresis, paralysis, permanent pain or difficulty swallowing, loss of bowel or bladder function, complications from anesthesia, blood clot, stroke, myocardial infarction, or even . DETAILS OF THE SURGICAL PROCEDURE The patient was endotracheally intubated and mechanically ventilated. A Maldonado catheter, bilateral TR hose and sequential compression devices were placed and kept throughout the procedure. The patient was positioned supine on a 3080 table over a soft mattress. The eyes were tapped shut after ointment was applied by the anesthesiologist to prevent corneal abrasion. A Kang hugger was placed over the exposed lower body to maintain control of the core body temperature. The head was placed on a gel doughnut. All pressure points were carefully padded with egg crate mattress. The left frontotemporal parietal area was shaved, prepped and draped in the usual sterile fashion. A standard inverted question christiano incision was outlined on the left scalp and infiltrated with 1% lidocaine with epinephrine. The skin incision was made with a #10 blade down to the level of the periosteum in the frontoparietal region and to the temporalis fascia in the temporal region. Jasbir clips were applied to the scalp. Using a Bovie, the temporalis fascia and muscle were incised and a subperiosteal dissection was performed reflecting the scalp flap anteriorly. The scalp was covered with a moist sponge and held in position using fish hooks. The TPS was brought to the field and a bur hole was made in the temporal region using the craniotome attachment. Then, using the footplate attachment, a large frontotemporoparietal craniotomy flap was elevated. The dura was bulging, very tense with severe pressure and an underlying dark coloration related to the acute subdural hematoma. The dura was opened with a 15 blade and metzembaun scissors and a large subdural hematoma was found, causing significant mass effect. The hematoma was evacuated by gentle irrigation and sent to the lab for histologic analysis. The bleeding was controlled using the bipolar statistical developer. Then the incision was irrigated with saline solution. The brain was diffusely edematose, builging from the craniotomy site. The dural edges were tacked to the bone. The Dura was losely reconstructed with Duragen. A 7 millimeter Adal-Edwards drain was then left in the subgaleal space and externalized through a separate stab incision The incision was then closed in layers. 0 Vicryl in interrupted sutures were used to close the temporalis fascia. The galea was closed with interrupted 3- 0 Vicryl. Mac were applied to the skin. The drain was secured with a 3-0 nylon. At the end of the procedure, the sponge, needle and instrument counts were all correct. Estimated blood loss was less than 150 cc. No blood transfusion was given. No intraoperative complications occurred. The patient received prophylactic antibiotics. The patient was then transferred to the recovery room in stable condition. George Perry MD Oct 08, 2016 11:51
--- NOTE | 2016-10-08 16:40 | HHI.CCPN ---
Subjective Remarks/Hospital Course 10/07: 56-year-old male presents with intracranial bleed. Patient was transferred from [facility] at [facility]. As per the paramedics and the nurse who assisted the patient said that patient earlier this morning was coming down the stairs when he started feeling some left-sided weakness and numbness. He called 911 and by the time EMS arrived they detected some deficit and called a stroke alert. Patient was taken to [facility]. When patient arrived his mental status started to decline and he was intubated emergently in the ER. A CAT scan of the head showed subarachnoid and subdural bleed. He was taking emergently to an angio suite for coiling of the aneurysm and later on to OR for subdural hematoma evacuation. 10/08: Remains sedated, orally intubated on mechanical ventilation. Arouses off sedation and ordering commands with both upper extremities earlier. Ventriculostomy in place. ICP 7, CPP mid 80s. Objective Vital Signs Date Time Temp Pulse Resp B/P (MAP) Pulse Ox O2 Delivery O2 Flow Rate FiO2 10/08/16 15:50 100 40 10/08/16 14:00 80 10/08/16 12:00 98.1 28 132/75 (94) 10/08/16 07:00 Mechanical Ventilator Intake and Output 10/08/16 10/08/16 10/09/16 08:00 16:00 00:00 Intake Total 1851 ml Output Total 575 ml Balance 1276 ml Result Diagram: 10/08/16 0515 10/08/16 0515 Imaging Last 24 hours Impressions Chest X-Ray 10/07/16 1700 Signed Impressions: Service Date/Time: Friday, October 07, 2016 20:53 - CONCLUSION: 1. Clear lungs. 2. A properly positioned endotracheal tube. 3. Nasogastric tube tip is in the upper stomach. The side hole is above the GE junction. Yosvany Butler MD Objective Remarks GENERAL: Sedated and intubated SKIN: Warm and dry. HEAD: Status post left craniectomy EYES: No scleral icterus. No injection or drainage. NECK: Supple, trachea midline. No JVD or lymphadenopathy. CARDIOVASCULAR: Regular rate and rhythm without murmurs, gallops, or rubs. RESPIRATORY: Breath sounds equal bilaterally. No accessory muscle use. GASTROINTESTINAL: Abdomen soft, non-tender, nondistended. MUSCULOSKELETAL: No cyanosis, or edema. BACK: Nontender without obvious deformity. NEURO EXAM: GCS: M1 Vt E1 Mental Status: The patient is sedated and intubated, arousable off sedation and moving both upper extremities Reflexes: Biceps, patellar, and Achilles are 2/4 bilaterally. No clonus. Urinary Catheter: Yes Assessment to: Continue A/P Assessment and Plan Respiratory failure - Intubated for an airway protection - No weaning until neurologically stable - Mechanical ventilation - Vent bundle Subarachnoid/subdural bleed - Aneurysm - Alvarado Rodriguez 5 - Carroll grade 4 - Status post successful coiling embolization 10/08 - Status post subdural hematoma evacuation 10/08 - Monitor ICPs - SBP controlled with the goal less than 180 - TCD's daily - Monitor for vasospasm - Management per neurosurgery - Nimodipine for vasospasm prophylaxis - Keppra for seizure prophylaxis Hypertension - Hydralazine and labetalol when necessary to keep SBP less than 180 GI/liver - Start tube feeds and advanced to goal as tolerated. DVT GI prophylaxis - SCDs - Teds - No pharmacological DVT prophylaxis due to ICH for next 48 hours - Reassess for pharmacological prophylaxis after 48 hours per neurosurgery - Pepcid Discussed with Dr. Perry from neurosurgery. Plan to repeat head CT on 10/09 to reevaluate. Critical Care: The total critical care time was 35 minutes. Time to perform other separately billable procedures was not included in the critical care time. Jonah Sanabria MD Oct 08, 2016 16:40
--- NOTE | 2016-10-08 18:57 | HHI.NSPN ---
Note Status Status: Progress Note Interval History Diagnosis SAH Interval History This is a 56-year-old male brought to the emergency room as an emergency transfer from another institution with history of intracranial bleed. He was transferred from [facility] and [facility]. Apparently the patient said that patient earlier this morning was coming down the stairs when he started feeling some left-sided weakness and numbness. He called 911 and by the time EMS arrived they detected severe neurological deficits and called a stroke alert. No seizure activity reported. No tongue biting. No incontinence of stool or urine. Patient was taken to [facility]. Apparently he was not able to move his right side . When patient arrived his mental status started to decline and he was intubated emergently in the ER for airway protection. A CT scan of the head showed extensive subarachnoid bleed. In addition he had a sizable subdural hematoma. He was brought emergently on the ventilator. He was on a propofol drip and well sedated. GCS was 3. He was on a Cardene drip and blood pressure was in the 120s. Neurosurgical consultation was requested 10/08. POD #1 Open eyes and follows commands Labs, Micro, & Vital Signs Results Date Time Temp Pulse Resp B/P (MAP) Pulse Ox O2 Delivery O2 Flow Rate FiO2 10/08/16 18:00 84 10/08/16 16:00 80 10/08/16 16:00 98.5 83 22 133/69 (90) 100 10/08/16 15:50 100 40 10/08/16 14:00 80 10/08/16 12:00 98.1 77 28 132/75 (94) 100 10/08/16 12:00 77 10/08/16 11:58 98 40 10/08/16 10:00 77 10/08/16 08:32 100 40 10/08/16 08:00 98.2 83 27 107/67 (80) 100 10/08/16 08:00 78 10/08/16 07:00 100 Mechanical Ventilator 40 10/08/16 06:00 85 10/08/16 04:10 100 40 10/08/16 04:00 98.8 95 29 125/75 (92) 100 10/08/16 04:00 95 10/08/16 02:00 84 10/08/16 00:00 98.1 82 22 123/65 (84) 100 10/08/16 00:00 82 10/07/16 23:43 100 50 10/07/16 22:00 78 10/07/16 21:10 100 50 10/07/16 20:00 98.2 74 19 128/64 (85) 100 10/07/16 20:00 74 10/09/16 07:00 Intake Total 3580 ml Output Total 665 ml Balance 2915 ml Constitutional Vital Signs Date Time Temp Pulse Resp B/P (MAP) Pulse Ox O2 Delivery O2 Flow Rate FiO2 10/08/16 18:00 84 10/08/16 16:00 80 10/08/16 16:00 98.5 83 22 133/69 (90) 100 10/08/16 15:50 100 40 10/08/16 14:00 80 10/08/16 12:00 98.1 77 28 132/75 (94) 100 10/08/16 12:00 77 10/08/16 11:58 98 40 10/08/16 10:00 77 10/08/16 08:32 100 40 10/08/16 08:00 98.2 83 27 107/67 (80) 100 10/08/16 08:00 78 10/08/16 07:00 100 Mechanical Ventilator 40 10/08/16 06:00 85 10/08/16 04:10 100 40 10/08/16 04:00 98.8 95 29 125/75 (92) 100 10/08/16 04:00 95 10/08/16 02:00 84 10/08/16 00:00 98.1 82 22 123/65 (84) 100 10/08/16 00:00 82 10/07/16 23:43 100 50 10/07/16 22:00 78 10/07/16 21:10 100 50 10/07/16 20:00 98.2 74 19 128/64 (85) 100 10/07/16 20:00 74 10/09/16 07:00 Intake Total 3580 ml Output Total 665 ml Balance 2915 ml Physical Exam The patient is intubated and sedated. Localizes to painful stimuli. Follows sim [ple commands Cranial Nerves: Pupils equal, round, reactive to light. Eyes appear conjugated. There was no nystagmus, no papilledema. Face musculature appeared symmetrical at rest. Face sensation, olfaction, visual rose, and hearing cannot be adequately assessed due to his neurological condition. The patient has a corneal reflex. He has a gag reflex. The sternocleidomastoid and trapezius are symmetrical. Motor: His muscle tone and bulk are normal. He follows commands, mild right sided weakness Reflexes: Deep tendon reflexes are 1+ and symmetrical in the biceps, triceps, and brachioradialis, bilaterally, in the upper extremities. In the lower extremities, the patellar and ankles are 1+, bilaterally. There is a bilateral plantar flexion response. There is no clonus or other abnormal reflexes noted. Sensory: On examination there is response to painful stimuli, localizing with both upper and lower extremities. Cerebellar: Examination cannot be adequately assessed due to the patient's neurological condition. Medications Current Medications Current Medications Iohexol (Omnipaque 350 Inj) 100 ml STK-MED ONCE IVCONTRAST Last administered on 10/07/16 14:21; Start 10/07/16 at 14:21; Stop 10/07/16 at 15:21; Status DC Mannitol 50 ml @ As Directed STK-MED ONCE .ROUTE ; Start 10/07/16 at 15:25; Stop 10/07/16 at 15:26; Status DC Propofol 0 ml @ As Directed STK-MED ONCE .ROUTE ; Start 10/07/16 at 15:25; Stop 10/07/16 at 15:26; Status DC Levetriacetam (Keppra Inj) 1,000 mg STK-MED ONCE IV Last administered on 18:30; Start 10/07/16 at 15:27; Stop 10/07/16 at 15:28; Status DC Mannitol (Mannitol Inj) 50 gm ONCE ONCE IV ; Start 10/07/16 at 15:30; Stop at 15:31; Status DC Nicardipine HCl 25 mg/Sodium Chloride 260 ml @ 52 mls/hr Q5H PRN IV Blood pressure management; Start 10/07/16 at 15:40 Propofol 100 ml @ 0 mls/hr Q0M PRN IV Ordered RASS Last administered on 23:01; Start 10/07/16 at 15:40; Stop 10/07/16 at 23:16; Status DC Sodium Chloride 1,000 ml @ 75 mls/hr [id number] IV ; Start 10/07/16 at 16:08; Stop 10/07/16 at 18:34; Status DC Sodium Chloride (NS Flush) 2 ml UNSCH PRN IV FLUSH FLUSH AFTER USING IV ACCESS ; Start 10/07/16 at 16:15; Stop 10/07/16 at 18:40; Status DC Sodium Chloride (NS Flush) 2 ml BID IV FLUSH ; Start 10/07/16 at 21:00; Stop at 21:00; Status DC Acetaminophen (Tylenol) 650 mg Q6H PRN PO PAIN 1-10 AND/OR FEVER >101F; Start 10/07/16 at 16:15; Stop 10/07/16 at 19:04; Status DC Albuterol/ Ipratropium (Duoneb Neb) 1 ampule Q6HR NEB NEB Last administered on 10/08/16 15:50; Start 10/07/16 at 22:00 Albuterol/ Ipratropium (Duoneb Neb) 1 ampule Q4HR NEB PRN INH SHORTNESS OF BREATH; Start 10/07/16 at 16:15 Chlorhexidine Gluconate (Peridex 0.12% Liq) 15 ml BID@08,20 MT Last administered on 10/08/16 08:00; Start 10/07/16 at 20:00 Pantoprazole Sodium (Protonix Inj) 40 mg DAILY IV ; Start 10/08/16 at 09:00; Stop 10/08/16 at 09:00; Status DC Miscellaneous Information 1 [id number] XX ; Start 10/07/16 at 16:15 Chlorhexidine Gluconate (Chlorhexidine 2% Cloth) 3 pack Taper DAILY@04 TOP Last administered on 10/08/16 03:48; Start 10/08/16 at 04:00; Stop 10/04/17 at 03:59 Chlorhexidine Gluconate (Chlorhexidine 2% Cloth) 3 pack UNSCH PRN TOP HYGIENIC CARE; Start 10/07/16 at 16:15 Insulin Aspart (NovoLOG SUPPLEMENTAL SCALE) 1 Q6HR SQ ; Start 10/07/16 at 18:00 Propofol 100 ml @ 0 mls/hr Q0M PRN IV SEDATION; Start 10/07/16 at 16:08; Status UNV Nimodipine (Nimotop) 60 mg Q4HR OG-TUBE Last administered on 10/08/16 16:44; Start 10/07/16 at 20:00 Verapamil HCl (Isoptin Inj) 10 mg STK-MED ONCE .ROUTE ; Start 10/07/16 at 16:45 ; Stop 10/07/16 at 16:46; Status DC Nitroglycerin (Nitroglycerin 2% Oint) 1 inch STK-MED ONCE .ROUTE ; Start at 16:55; Stop 10/07/16 at 16:56; Status DC Heparin Sodium (Porcine) (Heparin Inj) 10,000 units STK-MED ONCE .ROUTE ; Start 10/07/16 at 16:56; Stop 10/07/16 at 16:57; Status DC Potassium Chloride/Sodium Chloride 1,000 ml @ 100 mls/hr Q10H IV Last administered on 10/08/16 18:34; Start 10/07/16 at 18:20 IV Flush (NS Flush) 2 ml UNSCH PRN IVF FLUSH AFTER USING IV ACCESS; Start 10/07 at 18:30 IV Flush (NS Flush) 2 ml BID IVF Last administered on 10/07/16 20:37; Start at 21:00 Cefazolin Sodium/ Dextrose 50 ml @ 100 mls/hr Q8H IV Last administered on 10/08 10:30; Start 10/07/16 at 19:00; Stop 10/08/16 at 11:29; Status DC Levetriacetam 500 mg/Sodium Chloride 105 ml @ 400 mls/hr Q12H IV Last administered on 10/08/16 18:26; Start 10/08/16 at 06:00 Bisacodyl (Dulcolax Supp) 10 mg DAILY PRN RECTAL CONSTIPATION; Start 10/07/16 at 18:30 Docusate Sodium (Colace) 100 mg BID PO Last administered on 10/07/16 20:37; Start 10/07/16 at 21:00 Pantoprazole Sodium (Protonix) 40 mg DAILY PO ; Start 10/08/16 at 09:00 Pantoprazole Sodium (Protonix Inj) 40 mg DAILY IVP Last administered on 08:16; Start 10/08/16 at 09:00 Ondansetron HCl (Zofran Inj) 4 mg Q6H PRN IV NAUSEA OR VOMITING; Start at 18:30 Calcium Gluconate (Calcium Gluconate Inj) 1 gm UNSCH PRN IV SEE LABEL COMMENTS ; Start 10/07/16 at 18:30 Potassium Chloride 100 ml @ 50 mls/hr UNSCH PRN IV POTASSIUM LESS THAN 4; Start 10/07/16 at 18:30 Magnesium Sulfate 4 gm/Sodium Chloride 108 ml @ 108 mls/hr UNSCH PRN IV MAGNESIUM LESS THAN 2; Start 10/07/16 at 18:30 Acetaminophen/ Hydrocodone Bitart ([place] 10-325 Mg) 1 tab Q4H PRN PO PAIN SCALE 1 TO 5; Start 10/07/16 at 18:30 Acetaminophen/ Hydrocodone Bitart ([place] 10-325 Mg) 2 tab Q4H PRN PO PAIN SCALE 6 TO 10 Last administered on 10/08/16 03:47; Start 10/07/16 at 18:30 Morphine Sulfate (Morphine Inj) 2 mg Q2H PRN IV PUSH PAIN SCALE 1 TO 6; Start 10/07/16 at 18:30 Morphine Sulfate (Morphine Inj) 4 mg Q2H PRN IV PUSH PAIN SCALE 7 TO 10 Last administered on 10/08/16 01:55; Start 10/07/16 at 18:30 Acetaminophen (Tylenol) 650 mg Q4H PRN PO TEMPERATURE > 101.5 F; Start at 18:30 Iodixanol (VISIPAQUE 320 INJ (Rad Spec)) 65 ml STK-MED ONCE I-ARTERIAL Last administered on 10/07/16 18:38; Start 10/07/16 at 18:38; Stop 10/07/16 at 18:39 ; Status DC Dextrose (D50w (Vial) Inj) 50 ml UNSCH PRN IV PUSH HYPOGLYCEMIA - SEE COMMENTS ; Start 10/07/16 at 19:15 Glucagon (Glucagon Inj) 1 mg UNSCH PRN OTHER HYPOGLYCEMIA-SEE COMMENTS; Start 10/07/16 at 19:15 Midazolam HCl (Versed Inj) 4 mg STK-MED ONCE .ROUTE ; Start 10/07/16 at 19:51; Stop 10/07/16 at 19:52; Status DC Fentanyl Citrate (fentaNYL INJ) 250 mcg STK-MED ONCE .ROUTE ; Start 10/07/16 at 20:32; Stop 10/07/16 at 20:33; Status DC Propofol 100 ml @ 0 mls/hr TITRATE PRN IV Sedation Last administered on t 18:33; Start 10/07/16 at 23:15 Medical Decision Making MDM Remarks Last Impressions Chest X-Ray 10/07/16 1700 Signed Impressions: Service Date/Time: Friday, October 07, 2016 20:53 - CONCLUSION: 1. Clear lungs. 2. A properly positioned endotracheal tube. 3. Nasogastric tube tip is in the upper stomach. The side hole is above the GE junction. Yosvany Butler MD Neck CTA 10/07/16 0000 Signed Impressions: Service Date/Time: Friday, October 07, 2016 15:03 - CONCLUSION: 1. Mild carotid bulb atherosclerotic calcification bilaterally. However, no significant stenosis is present in either internal carotid artery. 2. Paranasal sinus mucoperiosteal thickening. 3. Please refer to brain CTA report for description of the intracranial findings. Yosvany Ramirez MD Head CTA 10/07/16 0000 Signed Impressions: Service Date/Time: Friday, October 07, 2016 15:03 - CONCLUSION: 1. 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 2. Large left subdural hematoma measuring 1.3 cm in depth with a significant, 1.6 cm left to right subfalcine shift. Joni Shelton MD Head CT 10/07/16 0000 Signed Impressions: Service Date/Time: Friday, October 07, 2016 15:01 - CONCLUSION: Extensive intracranial hemorrhage on the left as detailed above with midline shift of 14 mm left to right. See the CTA reported separately. Santos Crockett Jr., MD Attending Statement Neuro. Continue neuro checks. Follow up CT in AM. TCD Continue Keppra for prophylaxis of seizures. Nimotop for prophylaxis of vasospasm Pulmonary. Acute respiratory failure. Full mechanical ventilation in assist control mode of mechanical ventilation. Follow up chest xray in the morning Continue Aggressive pulmonary toilette, nasotracheal suction, and breathing treatments with nebulizers. PT and OT NPO Renal. Continue to monitor closely urine output, BUN and creatinine Endocrine. Continue to Monitor serial Acu checks and SSI as needed in detail ID Continue tomonitor for signs of infection Continue Protonix for stress ulcer prophylaxis Continue Colt hose and SCD's for DVT prophylaxis Discussed in detail with Dr jina Perry,George Chambers MD Oct 08, 2016 18:57
[2016-10-09] VITALS (18 sets, daily range): BP systolic 111–136; BP diastolic 58–70; PULSE 60–78; RESP 20–21; TEMP 97.9–100.5; O2SAT 100
[2016-10-09] MEDS: PROPOFOL 1000 MG/100 ML IV PRN ×5 (01:31→22:31)
[2016-10-09] MEDS: ACETAMINOPHEN/HYDROcodone 325 MG/10 MG TAB PO PRN ×2 (03:12→10:20)
[2016-10-09] MEDS: niMODipine 30 MG CAP OG-TUBE SCH ×5 (03:12→20:23)
[2016-10-09] MEDS: CHLORHEXIDINE GLUCONATE 2 % 1 PACK (2 CLOTHS) TOP SCH (03:14)
[2016-10-09] MEDS: RESP: ALBUTEROL 2.5 MG/IPRATROPIUM 0.5 MG NEB (SCH) NEB ×4 (03:14→21:11)
--- NOTE | 2016-10-09 03:22 | RADRPT ---
EXAM DATE/TIME: 10/09/2016 02:27 [facility] COMPARISON: CHEST SINGLE AP, October 07, 2016, 20:53. INDICATIONS : Shortness of breath. MEDICAL HISTORY : Seizures SURGICAL HISTORY : None. ENCOUNTER: Subsequent ACUITY: 3 days PAIN SCORE: Non-responsive. LOCATION: Bilateral chest FINDINGS: A single view of the chest demonstrates the lungs to be symmetrically aerated without evidence of mas s, infiltrate or effusion. The endotracheal tube and nasogastric are both in good position. The cardi omediastinal contours are unremarkable. Osseous structures are intact. CONCLUSION: Stable examination with mild hyperlucency and no focal infiltrate. Yosef Haque MD on October 09, 2016 at 3:20 Board Certified Radiologist. This report was verified electronically.
[2016-10-09] MEDS ORDERED: EPINEPHrine HCL (1:10,000) 1 MG/10 ML SYRINGE ONE (04:09)
[2016-10-09] MEDS ORDERED: ATROPINE SULFATE 1 MG/10 ML SYRINGE ONE (04:09)
[2016-10-09] MEDS ORDERED: LIDOCAINE HCL 2% 100 MG/5 ML SYRINGE ONE (04:09)
--- NOTE | 2016-10-09 04:35 | RADRPT ---
EXAM DATE/TIME: 10/09/2016 04:22 [facility] COMPARISON: US GUIDED VASCULAR ACCESS, RIGHT, October 07, 2016, 0:00. CT BRAIN W/O CONTRAST, October 07, 2016, 15: 01. INDICATIONS : Follow-up bleed. RADIATION DOSE: 62.93 CTDIvol (mGy) MEDICAL HISTORY : Non-responsive. SURGICAL HISTORY : Non-responsive. ENCOUNTER: Subsequent ACUITY: 2 days PAIN SCALE: Non-responsive LOCATION: cranial TECHNIQUE: Multiple contiguous axial images were obtained of the head. Using automated exposure control and adj ustment of the mA and/or kV according to patient size, radiation dose was kept as low as reasonably a chievable to obtain optimal diagnostic quality images. DICOM format image data is available electro nically for review and comparison. FINDINGS: CEREBRUM: The patient's had aneurysm coiling for a left P-comm aneurysm. There is some residual hemorrhage ashley g the temporal tip on the left with the largest collection measuring 1.4 x 2.7 cm across. There is so me diffuse subarachnoid hemorrhage in the sylvian fissure and along the left tentorium. There is hemo rrhage within the ventricular system with mild prominence of both lateral ventricles. A ventricular c atheter meets been placed by a right frontal approach in good position with its tip near the third ve ntricle the and foramen of [place]. The shift seen previously is no longer identified. There is some mild remaining edema in the lef t basal ganglia and left temporal lobe but markedly improved since the previous study. There is good bourne white matter differentiation throughout the brain. POSTERIOR FOSSA: The cerebellum and brainstem are intact. The 4th ventricle is midline. The cerebellopontine angle i s unremarkable. EXTRACRANIAL: The visualized portion of the orbits is intact. Scattered ethmoidal and left maxillary sinus disease SKULL: There is a large left-sided craniotomy defect with a surgical drain overlying the subarachnoid space. No evidence of skull fracture. CONCLUSION: Status post aneurysm coiling and a large left craniotomy defect with excellent result. There some res idual subarachnoid hemorrhage along the left temporal tip and some remaining edema on the left side b ut much less mass effect and shift on today's exam. Ventriculostomy catheter in good position. Some residual intraventricular hemorrhage and scattered subarachnoid hemorrhage. Yosef Haque MD on October 09, 2016 at 4:28 Board Certified Radiologist. This report was verified electronically.
[2016-10-09 05:01] LABS: AUTOMATED NEUTROPHIL # 5.5 TH/MM3 (1.8-7.7); BASOPHIL % 0.6 % (0.0-2.0); EOSINOPHIL # 0.1 TH/MM3 (0-0.4); EOSINOPHIL % 0.8 % (0.0-4.0); HEMATOCRIT 29.5 % (39.0-51.0); HEMO FLAGS DIFF FINAL; LYMPH % 15.4 % (9.0-44.0); LYMPHOCYTE # 1.2 TH/MM3 (1.0-4.8); MEAN CELL VOLUME 98.4 FL (80.0-100.0); MEAN CORPUSCULAR HEMOGLOBIN 33.5 PG (27.0-34.0); MEAN CORPUSCULAR HGB CONC 34.1 % (32.0-36.0); MONO % 10.4 % (0.0-8.0); NEUT % 72.8 % (16.0-70.0); PLATELET COUNT 118 TH/MM3 (150-450); RED BLOOD COUNT 2.99 MIL/MM3 (4.50-5.90); RED CELL DISTRIBUTION WIDTH 13.5 % (11.6-17.2); WHITE BLOOD COUNT 7.6 TH/MM3 (4.0-11.0)
[2016-10-09] MEDS: levETIRAcetam INJ 500 MG in SODIUM CHLORIDE 0.9% INJ 100 ML IV SCH ×2 (05:04→18:05)
[2016-10-09 05:35] LABS: ALT (GPT) 12 U/L (12-78); ANION GAP 7 MEQ/L (5-15); AST (GOT) 8 U/L (15-37); BICARBONATE 25.3 MEQ/L (21.0-32.0); BLOOD UREA NITROGEN 9 MG/DL (7-18); CHLORIDE 110 MEQ/L (98-107); GLOMERULAR FILTRATION RATE 128 ML/MIN (>89); POTASSIUM 3.6 MEQ/L (3.5-5.1); SODIUM (NA) 142 MEQ/L (136-145)
[2016-10-09 05:37] LABS: ALKALINE PHOSPHATASE 38 U/L (45-117); TOTAL BILIRUBIN ADULT 0.4 MG/DL (0.2-1.0)
[2016-10-09] MEDS: INSULIN ASPART SUPPLEMENTAL SCALE SQ SCH ×3 (05:54→17:28)
[2016-10-09] MEDS: PANTOPRAZOLE SOD 40 MG DELAYED RELEASE TAB PO SCH (07:31)
[2016-10-09] MEDS: CHLORHEXIDINE 0.12% (ORAL KIT) 15 ML CUP MT SCH ×2 (08:00→20:23)
--- NOTE | 2016-10-09 08:13 | HHI.NSPN ---
History Chief Complaint: Intubated and sedated. Interval History This is a 56-year-old male brought to the emergency room as an emergency transfer from another institution with history of intracranial bleed. He was transferred from [facility] and [facility]. Apparently the patient said that patient earlier this morning was coming down the stairs when he started feeling some left-sided weakness and numbness. He called 911 and by the time EMS arrived they detected severe neurological deficits and called a stroke alert. No seizure activity reported. No tongue biting. No incontinence of stool or urine. Patient was taken to [facility]. Apparently he was not able to move his right side . When patient arrived his mental status started to decline and he was intubated emergently in the ER for airway protection. A CT scan of the head showed extensive subarachnoid bleed. In addition he had a sizable subdural hematoma. He was brought emergently on the ventilator. He was on a propofol drip and well sedated. GCS was 3. He was on a Cardene drip and blood pressure was in the 120s. Neurosurgical consultation was requested 10/08. POD #1 Open eyes and follows commands 10/09/16 POD #2: Pt sedated on Diprivan. Intubated. When held pt opens eyes and follows commands. Pupils 3mm bilaterally reactive briskly bilaterally. Exam Results Vital Signs Date Time Temp Pulse Resp B/P (MAP) Pulse Ox O2 Delivery O2 Flow Rate FiO2 10/09/16 07:00 100 Mechanical Ventilator 40 10/09/16 06:00 67 10/09/16 04:00 99.1 20 128/64 (85) Intake and Output 10/09/16 10/09/16 10/10/16 08:00 16:00 00:00 Intake Total 810 ml Output Total 450 ml Balance 360 ml Physical Examination Resp: Intubated. CTA bilaterally. Volume control. Rate 20. FiO2 40%. Peep 5. Heart: NSR no murmurs Abd: Soft positive bs Skin: No cyanosis or erythema. SCDs in place. Incision clean and dry. No signs of infection. Muscle: Moves all 4 extremities to command when sedation held. Follows simple commands mild right sided weakness. Neuro: The patient is intubated and sedated. Localizes to painful stimuli. Ventriculostomy drain in placed. Clamped. ICP 6 with damp waveform. Cranial Nerves: Pupils equal, round, reactive to light. Eyes appear conjugated. There was no nystagmus, no papilledema. Face musculature appeared symmetrical at rest. Face sensation, olfaction, visual rose, and hearing cannot be adequately assessed due to his neurological condition. The patient has a corneal reflex. He has a gag reflex. The sternocleidomastoid and trapezius are symmetrical. Reflexes: Deep tendon reflexes are 1+ and symmetrical in the biceps, triceps, and brachioradialis, bilaterally, in the upper extremities. In the lower extremities, the patellar and ankles are 1+, bilaterally. There is a bilateral plantar flexion response. There is no clonus or other abnormal reflexes noted. Sensory: On examination there is response to painful stimuli, localizing with both upper and lower extremities. Cerebellar: Examination cannot be adequately assessed due to the patient's neurological condition. Lab, Micro, Other Results Last Impressions Head CT 10/09/16 06 Signed Impressions: Service Date/Time: Sunday, October 09, 2016 04:22 - CONCLUSION: Status post aneurysm coiling and a large left craniotomy defect with excellent result. There some residual subarachnoid hemorrhage along the left temporal tip and some remaining edema on the left side but much less mass effect and shift on today' s exam. Ventriculostomy catheter in good position. Some residual intraventricular hemorrhage and scattered subarachnoid hemorrhage. Yosef Haque MD Chest X-Ray 10/09/16 06 Signed Impressions: Service Date/Time: Sunday, October 09, 2016 02:27 - CONCLUSION: Stable examination with mild hyperlucency and no focal infiltrate. Yosef Haque MD Neck CTA 10/07/16 0000 Signed Impressions: Service Date/Time: Friday, October 07, 2016 15:03 - CONCLUSION: 1. Mild carotid bulb atherosclerotic calcification bilaterally. However, no significant stenosis is present in either internal carotid artery. 2. Paranasal sinus mucoperiosteal thickening. 3. Please refer to brain CTA report for description of the intracranial findings. Yosvany Ramirez MD Head CTA 10/07/16 0000 Signed Impressions: Service Date/Time: Friday, October 07, 2016 15:03 - CONCLUSION: 1. 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 2. Large left subdural hematoma measuring 1.3 cm in depth with a significant, 1.6 cm left to right subfalcine shift. Joni Shelton MD Laboratory Tests Test 10/09/16 04:50 White Blood Count 7.6 TH/MM3 Red Blood Count 2.99 MIL/MM3 Hemoglobin 10.0 GM/DL Hematocrit 29.5 % Mean Corpuscular Volume 98.4 FL Mean Corpuscular Hemoglobin 33.5 PG Mean Corpuscular Hemoglobin Concent 34.1 % Red Cell Distribution Width 13.5 % Platelet Count 118 TH/MM3 Mean Platelet Volume 9.6 FL Neutrophils (%) (Auto) 72.8 % Lymphocytes (%) (Auto) 15.4 % Monocytes (%) (Auto) 10.4 % Eosinophils (%) (Auto) 0.8 % Basophils (%) (Auto) 0.6 % Neutrophils # (Auto) 5.5 TH/MM3 Lymphocytes # (Auto) 1.2 TH/MM3 Monocytes # (Auto) 0.8 TH/MM3 Eosinophils # (Auto) 0.1 TH/MM3 Basophils # (Auto) 0.0 TH/MM3 CBC Comment DIFF FINAL Differential Comment Blood Urea Nitrogen 9 MG/DL Creatinine 0.65 MG/DL Random Glucose 144 MG/DL Total Protein 6.2 GM/DL Albumin 2.4 GM/DL Calcium Level 7.7 MG/DL Alkaline Phosphatase 38 U/L Aspartate Amino Transf (AST/SGOT) 8 U/L Alanine Aminotransferase (ALT/SGPT) 12 U/L Total Bilirubin 0.4 MG/DL Sodium Level 142 MEQ/L Potassium Level 3.6 MEQ/L Chloride Level 110 MEQ/L Carbon Dioxide Level 25.3 MEQ/L Anion Gap 7 MEQ/L Estimat Glomerular Filtration Rate 128 ML/MIN Medical Decision Making Impression and Plan A: 56 y/o M s/p left frontotemporal parietal decompressive craniectomy. Improved on follow up CT. P: Continue to monitor Neuro exam. Continue with current care Weaning vent. TCD Continue Protonix for stress ulcer prophylaxis Continue Colt hose and SCD's for DVT prophylaxis Continue Keppra for prophylaxis of seizures. Nimotop for prophylaxis of vasospasm Luis Espinosa Oct 09, 2016 08:13
[2016-10-09] MEDS: SODIUM CHLORIDE 0.9% FLUSH 5 ML FLUSH IVF SCH ×2 (08:40→20:24)
[2016-10-09] MEDS: PANTOPRAZOLE SODIUM 40 MG VIAL IVP SCH (08:40)
[2016-10-09] MEDS: DOCUSATE SODIUM 100 MG CAP PO SCH ×2 (08:40→20:24)
--- NOTE | 2016-10-09 09:18 | HHI.CCPN ---
Subjective Remarks/Hospital Course 10/07: 56-year-old male presents with intracranial bleed. Patient was transferred from [facility] at [facility]. As per the paramedics and the nurse who assisted the patient said that patient earlier this morning was coming down the stairs when he started feeling some left-sided weakness and numbness. He called 911 and by the time EMS arrived they detected some deficit and called a stroke alert. Patient was taken to [facility]. When patient arrived his mental status started to decline and he was intubated emergently in the ER. A CAT scan of the head showed subarachnoid and subdural bleed. He was taking emergently to an angio suite for coiling of the aneurysm and later on to OR for subdural hematoma evacuation. 10/08: Remains sedated, orally intubated on mechanical ventilation. Arouses off sedation and following commands with both upper extremities earlier. Ventriculostomy in place. ICP 7, CPP mid 80s. 10/09: Remains sedated, orally intubated on mechanical ventilation. Arouses off sedation and follows commands with both upper extremities. Ventriculostomy in place. Objective Vital Signs Date Time Temp Pulse Resp B/P (MAP) Pulse Ox O2 Delivery O2 Flow Rate FiO2 10/09/16 08:12 100 40 10/09/16 08:00 98.1 72 20 134/65 (88) 10/09/16 07:00 Mechanical Ventilator Intake and Output 10/09/16 10/09/16 10/10/16 08:00 16:00 00:00 Intake Total 810 ml Output Total 450 ml Balance 360 ml Result Diagram: 10/09/16 0450 10/09/16 045 Imaging Last Impressions Head CT 10/09/16599 Signed Impressions: Service Date/Time: Sunday, October 09, 2016 04:22 - CONCLUSION: Status post aneurysm coiling and a large left craniotomy defect with excellent result. There some residual subarachnoid hemorrhage along the left temporal tip and some remaining edema on the left side but much less mass effect and shift on today' s exam. Ventriculostomy catheter in good position. Some residual intraventricular hemorrhage and scattered subarachnoid hemorrhage. Yosef Haque MD Chest X-Ray 10/09/16 06 Signed Impressions: Service Date/Time: Sunday, October 09, 2016 02:27 - CONCLUSION: Stable examination with mild hyperlucency and no focal infiltrate. Yosef Haque MD Neck CTA 10/07/16 0000 Signed Impressions: Service Date/Time: Friday, October 07, 2016 15:03 - CONCLUSION: 1. Mild carotid bulb atherosclerotic calcification bilaterally. However, no significant stenosis is present in either internal carotid artery. 2. Paranasal sinus mucoperiosteal thickening. 3. Please refer to brain CTA report for description of the intracranial findings. Yosvany Ramirez MD Head CTA 10/07/16 0000 Signed Impressions: Service Date/Time: Friday, October 07, 2016 15:03 - CONCLUSION: 1. 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 2. Large left subdural hematoma measuring 1.3 cm in depth with a significant, 1.6 cm left to right subfalcine shift. Joni Shelton MD Objective Remarks GENERAL: Sedated and intubated SKIN: Warm and dry. HEAD: Status post left craniectomy EYES: No scleral icterus. No injection or drainage. NECK: Supple, trachea midline. No JVD or lymphadenopathy. CARDIOVASCULAR: Regular rate and rhythm without murmurs, gallops, or rubs. RESPIRATORY: Breath sounds equal bilaterally. No accessory muscle use. GASTROINTESTINAL: Abdomen soft, non-tender, nondistended. MUSCULOSKELETAL: No cyanosis, or edema. BACK: Nontender without obvious deformity. NEURO EXAM: GCS: M1 Vt E1 Mental Status: The patient is sedated and intubated, arousable off sedation and moving both upper extremities Reflexes: Biceps, patellar, and Achilles are 2/4 bilaterally. No clonus. A/P Assessment and Plan Respiratory failure - Intubated for an airway protection -Start sedation vacation and C Pap trials this morning if okay with neurosurgery - Mechanical ventilation - Vent bundle Subarachnoid/subdural bleed - Aneurysm - Alvarado Rodriguez 5 - Carroll grade 4 - Status post successful coiling embolization 10/08 - Status post subdural hematoma evacuation 10/08 - Monitor ICPs - SBP controlled with the goal less than 180 - TCD's daily - Monitor for vasospasm - Management per neurosurgery - Nimodipine for vasospasm prophylaxis - Keppra for seizure prophylaxis Hypertension - Hydralazine and labetalol when necessary to keep SBP less than 180 GI/liver -Tolerating tube feeds. DVT GI prophylaxis - SCDs - Teds - No pharmacological DVT prophylaxis due to ICH for next 48 hours - Reassess for pharmacological prophylaxis after 48 hours per neurosurgery - Viji Discussed with Dr. Perry from neurosurgery on 10/09 Critical Care: The total critical care time was 35 minutes. Time to perform other separately billable procedures was not included in the critical care time. Jonah Sanabria MD Oct 09, 2016 09:18
[2016-10-09] MEDS: NS + KCL 20 MEQ INJ 1,000 ML IV SCH ×2 (10:38→20:23)
--- NOTE | 2016-10-09 11:52 | RADRPT ---
EXAM DATE/TIME: 10/09/2016 07:39 [facility] COMPARISON: No previous studies available for comparison. INDICATIONS : Subarachnoid hemorrhage. MEDICAL HISTORY : Hypertension. SURGICAL HISTORY : Ventriculostomy catheter. ENCOUNTER: Initial ACUITY: 2 days PAIN SCORE: Nonresponsive. LOCATION: cranial Current Exam: Oct 09, 2016 [place] Ratio: Right: 2.15 Left: 1.82 Rodriguez Ratio: Right: 1.71 Left: 1.93 Previous Exam: [place] Ratio: Right: Left: Rodriguez Ratio: Right: Left: FINDINGS: Examination performed at bedside. Real-time ultrasound with the assistance of color and spectral Dop pler was utilized to evaluate the intracerebral circulation. Time-averaged maximal velocities are ca lculated in cm/s. CONCLUSION: No evidence to indicate vasospasm at this time. Angel Farley MD on October 09, 2016 at 11:48 Board Certified Radiologist. This report was verified electronically.
[2016-10-10] VITALS (19 sets, daily range): BP systolic 135–156; BP diastolic 64–80; PULSE 62–80; RESP 16–20; TEMP 97.6–99.6; O2SAT 97–100
[2016-10-10] MEDS: niMODipine 30 MG CAP OG-TUBE SCH ×7 (00:41→23:33)
[2016-10-10] MEDS: PROPOFOL 1000 MG/100 ML IV PRN ×2 (02:47→06:51)
[2016-10-10] MEDS: RESP: ALBUTEROL 2.5 MG/IPRATROPIUM 0.5 MG NEB (SCH) NEB ×4 (03:34→21:21)
[2016-10-10] MEDS: CHLORHEXIDINE GLUCONATE 2 % 1 PACK (2 CLOTHS) TOP SCH (04:00)
--- NOTE | 2016-10-10 04:00 | HHI.NSPN ---
Note Status Status: Progress Note Interval History Diagnosis SAH Interval History This is a 56-year-old male brought to the emergency room as an emergency transfer from another institution with history of intracranial bleed. He was transferred from [facility] and [facility]. Apparently the patient said that patient earlier this morning was coming down the stairs when he started feeling some left-sided weakness and numbness. He called 911 and by the time EMS arrived they detected severe neurological deficits and called a stroke alert. No seizure activity reported. No tongue biting. No incontinence of stool or urine. Patient was taken to [facility]. Apparently he was not able to move his right side . When patient arrived his mental status started to decline and he was intubated emergently in the ER for airway protection. A CT scan of the head showed extensive subarachnoid bleed. In addition he had a sizable subdural hematoma. He was brought emergently on the ventilator. He was on a propofol drip and well sedated. GCS was 3. He was on a Cardene drip and blood pressure was in the 120s. Neurosurgical consultation was requested 10/08. POD #1 Open eyes and follows commands Labs, Micro, & Vital Signs Results Date Time Temp Pulse Resp B/P (MAP) Pulse Ox O2 Delivery O2 Flow Rate FiO2 10/10/16 02:40 100 40 10/09/16 21:11 100 40 10/09/16 19:00 100 Mechanical Ventilator 40 10/09/16 18:00 67 10/09/16 16:06 100 40 10/09/16 16:00 64 10/09/16 16:00 98.1 64 20 120/59 (79) 100 10/09/16 14:00 62 10/09/16 12:00 97.9 60 20 111/58 (75) 100 10/09/16 12:00 60 10/09/16 11:15 40 10/09/16 11:15 100 40 10/09/16 10:00 69 10/09/16 08:12 100 40 10/09/16 08:00 98.1 72 20 134/65 (88) 100 10/09/16 08:00 69 10/09/16 07:00 100 Mechanical Ventilator 40 10/09/16 06:00 67 Constitutional Vital Signs Date Time Temp Pulse Resp B/P (MAP) Pulse Ox O2 Delivery O2 Flow Rate FiO2 10/10/16 02:40 100 40 10/09/16 21:11 100 40 10/09/16 19:00 100 Mechanical Ventilator 40 10/09/16 18:00 67 10/09/16 16:06 100 40 10/09/16 16:00 64 10/09/16 16:00 98.1 64 20 120/59 (79) 100 10/09/16 14:00 62 10/09/16 12:00 97.9 60 20 111/58 (75) 100 10/09/16 12:00 60 10/09/16 11:15 40 10/09/16 11:15 100 40 10/09/16 10:00 69 10/09/16 08:12 100 40 10/09/16 08:00 98.1 72 20 134/65 (88) 100 10/09/16 08:00 69 10/09/16 07:00 100 Mechanical Ventilator 40 10/09/16 06:00 67 Physical Exam Resp: Intubated. CTA bilaterally. Volume control. Rate 20. FiO2 40%. Peep 5. Heart: NSR no murmurs Abd: Soft positive bs Skin: No cyanosis or erythema. SCDs in place. Incision clean and dry. No signs of infection. Muscle: Moves all 4 extremities to command when sedation held. Follows simple commands mild right sided weakness. Neuro: The patient is intubated and sedated. Localizes to painful stimuli. Ventriculostomy drain in placed. Clamped. ICP 6 with damp waveform. Cranial Nerves: Pupils equal, round, reactive to light. Eyes appear conjugated. There was no nystagmus, no papilledema. Face musculature appeared symmetrical at rest. Face sensation, olfaction, visual rose, and hearing cannot be adequately assessed due to his neurological condition. The patient has a corneal reflex. He has a gag reflex. The sternocleidomastoid and trapezius are symmetrical. Reflexes: Deep tendon reflexes are 1+ and symmetrical in the biceps, triceps, and brachioradialis, bilaterally, in the upper extremities. In the lower extremities, the patellar and ankles are 1+, bilaterally. There is a bilateral plantar flexion response. There is no clonus or other abnormal reflexes noted. Sensory: On examination there is response to painful stimuli, localizing with both upper and lower extremities. Cerebellar: Examination cannot be adequately assessed due to the patient's neurological condition. Medical Decision Making MDM Remarks Last Impressions Chest X-Ray 10/07/16 1700 Signed Impressions: Service Date/Time: Friday, October 07, 2016 20:53 - CONCLUSION: 1. Clear lungs. 2. A properly positioned endotracheal tube. 3. Nasogastric tube tip is in the upper stomach. The side hole is above the GE junction. Yosvany Butler MD Neck CTA 10/07/16 0000 Signed Impressions: Service Date/Time: Friday, October 07, 2016 15:03 - CONCLUSION: 1. Mild carotid bulb atherosclerotic calcification bilaterally. However, no significant stenosis is present in either internal carotid artery. 2. Paranasal sinus mucoperiosteal thickening. 3. Please refer to brain CTA report for description of the intracranial findings. Yosvany Ramirez MD Head CTA 10/07/16 0000 Signed Impressions: Service Date/Time: Friday, October 07, 2016 15:03 - CONCLUSION: 1. 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 2. Large left subdural hematoma measuring 1.3 cm in depth with a significant, 1.6 cm left to right subfalcine shift. Joni Shelton MD Head CT 10/07/16 0000 Signed Impressions: Service Date/Time: Friday, October 07, 2016 15:01 - CONCLUSION: Extensive intracranial hemorrhage on the left as detailed above with midline shift of 14 mm left to right. See the CTA reported separately. Santos Crockett Jr., MD Attending Statement Neuro. Continue neuro checks. Follow up CT in AM. TCD Continue Keppra for prophylaxis of seizures. Nimotop for prophylaxis of vasospasm Pulmonary. Acute respiratory failure. Full mechanical ventilation in assist control mode of mechanical ventilation. Follow up chest xray in the morning Continue Aggressive pulmonary toilette, nasotracheal suction, and breathing treatments with nebulizers. PT and OT NPO Renal. Continue to monitor closely urine output, BUN and creatinine Endocrine. Continue to Monitor serial Acu checks and SSI as needed in detail ID Continue tomonitor for signs of infection Continue Protonix for stress ulcer prophylaxis Continue Colt hose and SCD's for DVT prophylaxis [place],George Reyes MD Oct 10, 2016 04:00
[2016-10-10] MEDS: MORPHINE SULFATE 4 MG/ML INJ IV PUSH PRN ×2 (05:45→17:52)
[2016-10-10] MEDS: NS + KCL 20 MEQ INJ 1,000 ML IV SCH ×3 (05:48→21:25)
[2016-10-10] MEDS: levETIRAcetam INJ 500 MG in SODIUM CHLORIDE 0.9% INJ 100 ML IV SCH ×2 (05:48→17:52)
[2016-10-10] MEDS: INSULIN ASPART SUPPLEMENTAL SCALE SQ SCH ×4 (05:48→17:49)
--- NOTE | 2016-10-10 07:29 | RADRPT ---
EXAM DATE/TIME: 10/10/2016 06:52 [facility] COMPARISON: CHEST SINGLE AP, October 09, 2016, 2:27. INDICATIONS : Shortness of breath. MEDICAL HISTORY : Seizures. SURGICAL HISTORY : None. ENCOUNTER: Subsequent ACUITY: 4 - 6 days PAIN SCORE: Non-responsive. LOCATION: Bilateral chest FINDINGS: A single view of the chest demonstrates minimal bibasilar densities. Endotracheal tube tip 3.8 cm abo ve the jenna. Nasogastric tube with tip in stomach. Heart normal in size. The cardiomediastinal cont ours are unremarkable. Osseous structures are intact. CONCLUSION: Minimal bibasilar densities. Luis Benites MD on October 10, 2016 at 7:26 Board Certified Radiologist. This report was verified electronically.
[2016-10-10] MEDS: PANTOPRAZOLE SOD 40 MG DELAYED RELEASE TAB PO SCH (09:00)
[2016-10-10 09:01] LABS: AUTOMATED NEUTROPHIL # 4.5 TH/MM3 (1.8-7.7); BASOPHIL % 0.6 % (0.0-2.0); EOSINOPHIL # 0.1 TH/MM3 (0-0.4); EOSINOPHIL % 1.4 % (0.0-4.0); HEMATOCRIT 27.8 % (39.0-51.0); HEMO FLAGS DIFF FINAL; LYMPH % 18.5 % (9.0-44.0); LYMPHOCYTE # 1.2 TH/MM3 (1.0-4.8); MEAN CELL VOLUME 98.7 FL (80.0-100.0); MEAN CORPUSCULAR HEMOGLOBIN 33.7 PG (27.0-34.0); MEAN CORPUSCULAR HGB CONC 34.2 % (32.0-36.0); MONO % 9.9 % (0.0-8.0); NEUT % 69.6 % (16.0-70.0); PLATELET COUNT 117 TH/MM3 (150-450); RED BLOOD COUNT 2.81 MIL/MM3 (4.50-5.90); RED CELL DISTRIBUTION WIDTH 13.4 % (11.6-17.2); WHITE BLOOD COUNT 6.5 TH/MM3 (4.0-11.0)
[2016-10-10] MEDS: CHLORHEXIDINE 0.12% (ORAL KIT) 15 ML CUP MT SCH ×2 (09:08→19:56)
[2016-10-10] MEDS: PANTOPRAZOLE SODIUM 40 MG VIAL IVP SCH (09:08)
[2016-10-10] MEDS: DOCUSATE SODIUM 100 MG CAP PO SCH ×2 (09:09→19:56)
[2016-10-10] MEDS: SODIUM CHLORIDE 0.9% FLUSH 5 ML FLUSH IVF SCH ×2 (09:09→19:56)
[2016-10-10 09:19] LABS: BICARBONATE 24.4 MEQ/L (21.0-32.0); POTASSIUM 3.9 MEQ/L (3.5-5.1)
--- NOTE | 2016-10-10 09:40 | HHI.CCPN ---
Subjective Remarks/Hospital Course 10/07: 56-year-old male presents with intracranial bleed. Patient was transferred from [facility] at [facility]. As per the paramedics and the nurse who assisted the patient said that patient earlier this morning was coming down the stairs when he started feeling some left-sided weakness and numbness. He called 911 and by the time EMS arrived they detected some deficit and called a stroke alert. Patient was taken to [facility]. When patient arrived his mental status started to decline and he was intubated emergently in the ER. A CAT scan of the head showed subarachnoid and subdural bleed. He was taking emergently to an angio suite for coiling of the aneurysm and later on to OR for subdural hematoma evacuation. 10/08: Remains sedated, orally intubated on mechanical ventilation. Arouses off sedation and following commands with both upper extremities earlier. Ventriculostomy in place. ICP 7, CPP mid 80s. 10/09: Remains sedated, orally intubated on mechanical ventilation. Arouses off sedation and follows commands with both upper extremities. Ventriculostomy in place. 10/10: Remains sedated, orally intubated on mechanical ventilation. Arouses off sedation and follows commands and both upper extremities. Ventriculostomy in place. ICP 5. Failed C Pap trial yesterday Objective Vital Signs Date Time Temp Pulse Resp B/P (MAP) Pulse Ox O2 Delivery O2 Flow Rate FiO2 10/10/16 08:57 100 40 10/10/16 07:00 Mechanical Ventilator 10/10/16 06:00 72 10/10/16 04:00 99.6 20 135/64 (87) Intake and Output 10/10/16 10/10/16 10/11/16 08:00 16:00 00:00 Intake Total 1947 ml Output Total 865 ml Balance 1082 ml Result Diagram: 10/10/1682910/10/16829 Imaging Last Impressions Head CT 10/09/16 06 Signed Impressions: Service Date/Time: Sunday, October 09, 2016 04:22 - CONCLUSION: Status post aneurysm coiling and a large left craniotomy defect with excellent result. There some residual subarachnoid hemorrhage along the left temporal tip and some remaining edema on the left side but much less mass effect and shift on today' s exam. Ventriculostomy catheter in good position. Some residual intraventricular hemorrhage and scattered subarachnoid hemorrhage. Yosef Haque MD Chest X-Ray 10/09/16 0600 Signed Impressions: Service Date/Time: Sunday, October 09, 2016 02:27 - CONCLUSION: Stable examination with mild hyperlucency and no focal infiltrate. Yosef Haque MD Neck CTA 10/07/16 0000 Signed Impressions: Service Date/Time: Friday, October 07, 2016 15:03 - CONCLUSION: 1. Mild carotid bulb atherosclerotic calcification bilaterally. However, no significant stenosis is present in either internal carotid artery. 2. Paranasal sinus mucoperiosteal thickening. 3. Please refer to brain CTA report for description of the intracranial findings. Yosvany Ramirez MD Head CTA 10/07/16 0000 Signed Impressions: Service Date/Time: Friday, October 07, 2016 15:03 - CONCLUSION: 1. 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 2. Large left subdural hematoma measuring 1.3 cm in depth with a significant, 1.6 cm left to right subfalcine shift. Joni Shelton MD Objective Remarks GENERAL: Sedated and intubated SKIN: Warm and dry. HEAD: Status post left craniectomy EYES: No scleral icterus. No injection or drainage. NECK: Supple, trachea midline. No JVD or lymphadenopathy. CARDIOVASCULAR: Regular rate and rhythm without murmurs, gallops, or rubs. RESPIRATORY: Breath sounds equal bilaterally. No accessory muscle use. GASTROINTESTINAL: Abdomen soft, non-tender, nondistended. MUSCULOSKELETAL: No cyanosis, or edema. BACK: Nontender without obvious deformity. NEURO EXAM: GCS: M1 Vt E1 Mental Status: The patient is sedated and intubated, arousable off sedation and moving both upper extremities Reflexes: Biceps, patellar, and Achilles are 2/4 bilaterally. No clonus. A/P Assessment and Plan Respiratory failure - Intubated for an airway protection -Daily sedation vacation and C Pap trials. - Vent bundle Subarachnoid/subdural bleed - Aneurysm - Alvarado Rodriguez 5 - Carroll grade 4 - Status post successful coiling embolization 10/08 - Status post subdural hematoma evacuation 10/08 - Monitor ICPs - SBP controlled with the goal less than 180 - TCD's daily - Monitor for vasospasm - Management per neurosurgery - Nimodipine for vasospasm prophylaxis - Keppra for seizure prophylaxis Hypertension - Hydralazine and labetalol when necessary to keep SBP less than 180 GI/liver -Tolerating tube feeds. DVT GI prophylaxis - SCDs - Teds - No pharmacological DVT prophylaxis due to ICH for next 48 hours - Reassess for pharmacological prophylaxis after 48 hours per neurosurgery - V[place] Discussed with Dr. Perry from neurosurgery on 10/09 Critical Care: The total critical care time was 35 minutes. Time to perform other separately billable procedures was not included in the critical care time. Jonah Sanabria MD Oct 10, 2016 09:40
--- NOTE | 2016-10-10 09:42 | RADRPT ---
EXAM DATE/TIME: 10/10/2016 07:37 [facility] COMPARISON: US TRANSCRANIAL DOPPLER COMPLETE, October 09, 2016, 7:39. INDICATIONS : Subarachnoid hemorrhage. MEDICAL HISTORY : Hypertension. Seizures. SURGICAL HISTORY : Craniectomy. Ventriculostomy. ENCOUNTER: Subsequent ACUITY: 3 days PAIN SCORE: Nonresponsive. LOCATION: Bilateral cranial Current Exam: Oct 10, 2016 [place] Ratio: Right: 2.3 Left: 2.9 Rodriguez Ratio: Right: 1.7 Left: 2.3 Previous Exam: Oct 09, 2016 [place] Ratio: Right: 2.15 Left: 1.82 Rodriguez Ratio: Right: 1.71 Left: 1.93 FINDINGS: Examination performed at bedside. Real-time ultrasound with the assistance of color and spectral Dop pler was utilized to evaluate the intracerebral circulation. Time-averaged maximal velocities are ca lculated in cm/s. CONCLUSION: Ratios are elevated when compared to the previous study. Elevated velocities are present on the left . There is no evidence for vasospasm as yet. Continued surveillance is suggested.. Remington Woodward MD FACR on October 10, 2016 at 9:38 Board Certified Radiologist. This report was verified electronically.
[2016-10-11] VITALS (16 sets, daily range): BP systolic 142–172; BP diastolic 67–78; PULSE 66–93; RESP 18–26; TEMP 97.9–102.4; O2SAT 97–100
[2016-10-11] MEDS: RESP: ALBUTEROL 2.5 MG/IPRATROPIUM 0.5 MG NEB (SCH) NEB ×3 (03:17→15:16)
[2016-10-11] MEDS: CHLORHEXIDINE GLUCONATE 2 % 1 PACK (2 CLOTHS) TOP SCH (04:00)
[2016-10-11] MEDS: niMODipine 30 MG CAP OG-TUBE SCH ×5 (05:00→20:32)
[2016-10-11] MEDS: levETIRAcetam INJ 500 MG in SODIUM CHLORIDE 0.9% INJ 100 ML IV SCH ×2 (05:00→17:03)
[2016-10-11] MEDS: INSULIN ASPART SUPPLEMENTAL SCALE SQ SCH ×5 (05:37→23:58)
[2016-10-11] MEDS: NS + KCL 20 MEQ INJ 1,000 ML IV SCH ×2 (06:42→17:56)
[2016-10-11] MEDS: CHLORHEXIDINE 0.12% (ORAL KIT) 15 ML CUP MT SCH ×2 (08:00→20:00)
[2016-10-11] MEDS: PANTOPRAZOLE SODIUM 40 MG VIAL IVP SCH (08:19)
[2016-10-11] MEDS: SODIUM CHLORIDE 0.9% FLUSH 5 ML FLUSH IVF SCH ×2 (08:19→21:00)
[2016-10-11] MEDS: DOCUSATE SODIUM 100 MG CAP PO SCH ×2 (08:19→21:00)
[2016-10-11] MEDS: PANTOPRAZOLE SOD 40 MG DELAYED RELEASE TAB PO SCH (08:20)
--- NOTE | 2016-10-11 09:55 | RADRPT ---
EXAM DATE/TIME: 10/11/2016 07:34 [facility] COMPARISON: No previous studies available for comparison. INDICATIONS : Subarachnoid hemorrhage. MEDICAL HISTORY : Hypertension. Respirtory failure. SURGICAL HISTORY : Left craniotomy. Ventriculostomy catheter. ENCOUNTER: [place]ela ACUITY: 3 days PAIN SCORE: Nonresponsive. LOCATION: Bilateral cranial Current Exam: Oct 11, 2016 [place] Ratio: Right: 2.2 Left: 2.6 Rodriguez Ratio: Right: 1.5 Left: 1.3 Previous Exam: Oct 10, 2016 [place] Ratio: Right: 2.3 Left: 2.9 Rodriguez Ratio: Right: 1.7 Left: 2.3 FINDINGS: Examination performed at bedside. Real-time ultrasound with the assistance of color and spectral Dop pler was utilized to evaluate the intracerebral circulation. Time-averaged maximal velocities are ca lculated in cm/s. CONCLUSION: Normal transcranial Doppler parameters and indices Yosvany Polk MD on October 11, 2016 at 9:42 Board Certified Radiologist. This report was verified electronically.
--- NOTE | 2016-10-11 13:14 | HHI.CCPN ---
Subjective Remarks/Hospital Course 10/07: 56-year-old male presents with intracranial bleed. Patient was transferred from [facility] at [facility]. As per the paramedics and the nurse who assisted the patient said that patient earlier this morning was coming down the stairs when he started feeling some left-sided weakness and numbness. He called 911 and by the time EMS arrived they detected some deficit and called a stroke alert. Patient was taken to [facility]. When patient arrived his mental status started to decline and he was intubated emergently in the ER. A CAT scan of the head showed subarachnoid and subdural bleed. He was taking emergently to an angio suite for coiling of the aneurysm and later on to OR for subdural hematoma evacuation. 10/08: Remains sedated, orally intubated on mechanical ventilation. Arouses off sedation and following commands with both upper extremities earlier. Ventriculostomy in place. ICP 7, CPP mid 80s. 10/09: Remains sedated, orally intubated on mechanical ventilation. Arouses off sedation and follows commands with both upper extremities. Ventriculostomy in place. 10/10: Remains sedated, orally intubated on mechanical ventilation. Arouses off sedation and follows commands and both upper extremities. Ventriculostomy in place. ICP 5. Failed C Pap trial yesterday. 10/11: Extubated on 10/10, tolerating well. Awake and alert. Appears confused, moving all 4 extremities. Ventriculostomy discontinued today by neurosurgery Objective Vital Signs Date Time Temp Pulse Resp B/P (MAP) Pulse Ox O2 Delivery O2 Flow Rate FiO2 10/11/16 12:00 69 10/11/16 12:00 99.3 26 172/76 (108) 100 10/11/16 09:19 21 10/11/16 07:00 Room Air 10/11/16 00:14 3.00 Intake and Output 10/11/16 10/11/16 10/12/16 08:00 16:00 00:00 Intake Total 1166 ml Output Total 1855 ml Balance -689 ml Result Diagram: 10/10/16 0830 10/10/16 0830 Imaging Last Impressions Head CT 10/09/16 0600 Signed Impressions: Service Date/Time: Sunday, October 09, 2016 04:22 - CONCLUSION: Status post aneurysm coiling and a large left craniotomy defect with excellent result. There some residual subarachnoid hemorrhage along the left temporal tip and some remaining edema on the left side but much less mass effect and shift on today' s exam. Ventriculostomy catheter in good position. Some residual intraventricular hemorrhage and scattered subarachnoid hemorrhage. Yosef Haque MD Chest X-Ray 10/09/16 0600 Signed Impressions: Service Date/Time: Sunday, October 09, 2016 02:27 - CONCLUSION: Stable examination with mild hyperlucency and no focal infiltrate. Yosef Haque MD Neck CTA 10/07/16 0000 Signed Impressions: Service Date/Time: Friday, October 07, 2016 15:03 - CONCLUSION: 1. Mild carotid bulb atherosclerotic calcification bilaterally. However, no significant stenosis is present in either internal carotid artery. 2. Paranasal sinus mucoperiosteal thickening. 3. Please refer to brain CTA report for description of the intracranial findings. Yosvany Ramirez MD Head CTA 10/07/16 0000 Signed Impressions: Service Date/Time: Friday, October 07, 2016 15:03 - CONCLUSION: 1. 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 2. Large left subdural hematoma measuring 1.3 cm in depth with a significant, 1.6 cm left to right subfalcine shift. Joni Shelton MD Objective Remarks GENERAL: Awake and alert, confused and disoriented currently, not in any acute distress. SKIN: Warm and dry. HEAD: Status post left craniectomy EYES: No scleral icterus. No injection or drainage. NECK: Supple, trachea midline. No JVD or lymphadenopathy. CARDIOVASCULAR: Regular rate and rhythm without murmurs, gallops, or rubs. RESPIRATORY: Breath sounds equal bilaterally. No accessory muscle use. GASTROINTESTINAL: Abdomen soft, non-tender, nondistended. MUSCULOSKELETAL: No cyanosis, or edema. BACK: Nontender without obvious deformity. NEURO EXAM: GCS: Awake alert, disoriented currently and confused. Pupils 3 mm bilaterally reactive. Not following commands consistently. Moving all 4 extremities A/P Assessment and Plan Respiratory failure -Extubated on 10/10 following C Pap trial. Tolerating nasal cannula. Bronchodilators as needed. Subarachnoid/subdural bleed - Aneurysm - Alvarado Rodriguez 5 - Carroll grade 4 - Status post successful coiling embolization 10/08 - Status post subdural hematoma evacuation 10/08 - Monitor ICPs - SBP controlled with the goal less than 180 - TCD's daily - Monitor for vasospasm - Management per neurosurgery - Nimodipine for vasospasm prophylaxis - Keppra for seizure prophylaxis Hypertension - Hydralazine and labetalol when necessary to keep SBP less than 180 GI/liver -Tolerating tube feeds. DVT GI prophylaxis - SCDs - Teds - No pharmacological DVT prophylaxis due to ICH - Reassess for pharmacological prophylaxis after 48 hours of presentation per neurosurgery - Pepcid Discussed with Dr. Perry from neurosurgery on 10/11. Ventricular colostomy and SHRUTHI drains discontinued on 10/11. Patient will be transferred to hospitalist service for further medical management. Critical care will be signing off, please reconsult if needed Jonah Sanabria MD Oct 11, 2016 13:14
[2016-10-11] MEDS: ACETAMINOPHEN 325 MG TAB PO PRN (15:57)
[2016-10-11] MEDS: ACETAMINOPHEN/HYDROcodone 325 MG/10 MG TAB PO PRN (20:31)
[2016-10-12] VITALS (12 sets, daily range): BP systolic 122–157; BP diastolic 68–80; PULSE 60–92; RESP 16–22; TEMP 97.3–98.9; O2SAT 95–100
[2016-10-12] MEDS: niMODipine 30 MG CAP OG-TUBE SCH ×5 (00:26→15:18)
[2016-10-12] MEDS: CHLORHEXIDINE GLUCONATE 2 % 1 PACK (2 CLOTHS) TOP SCH ×2 (04:44→19:40)
[2016-10-12 05:42] LABS: AUTOMATED NEUTROPHIL # 5.1 TH/MM3 (1.8-7.7); BASOPHIL # 0.1 TH/MM3 (0-0.2); EOSINOPHIL # 0.1 TH/MM3 (0-0.4); EOSINOPHIL % 1.7 % (0.0-4.0); HEMATOCRIT 30.9 % (39.0-51.0); HEMO FLAGS DIFF FINAL; LYMPH % 19.9 % (9.0-44.0); LYMPHOCYTE # 1.5 TH/MM3 (1.0-4.8); MEAN CELL VOLUME 98.4 FL (80.0-100.0); MEAN CORPUSCULAR HEMOGLOBIN 32.5 PG (27.0-34.0); MEAN CORPUSCULAR HGB CONC 33.1 % (32.0-36.0); NEUT % 66.4 % (16.0-70.0); PLATELET COUNT 181 TH/MM3 (150-450); RED BLOOD COUNT 3.14 MIL/MM3 (4.50-5.90); RED CELL DISTRIBUTION WIDTH 12.6 % (11.6-17.2); WHITE BLOOD COUNT 7.7 TH/MM3 (4.0-11.0)
[2016-10-12] MEDS: INSULIN ASPART SUPPLEMENTAL SCALE SQ SCH ×3 (05:49→18:00)
[2016-10-12] MEDS: levETIRAcetam INJ 500 MG in SODIUM CHLORIDE 0.9% INJ 100 ML IV SCH ×2 (05:49→16:37)
[2016-10-12 06:08] LABS: ALKALINE PHOSPHATASE 42 U/L (45-117); ALT (GPT) 14 U/L (12-78); ANION GAP 7 MEQ/L (5-15); AST (GOT) 13 U/L (15-37); BLOOD UREA NITROGEN 11 MG/DL (7-18); CHLORIDE 102 MEQ/L (98-107); GLOMERULAR FILTRATION RATE 135 ML/MIN (>89); MAGNESIUM 2.3 MG/DL (1.5-2.5); POTASSIUM 3.5 MEQ/L (3.5-5.1); SODIUM (NA) 136 MEQ/L (136-145); TOTAL BILIRUBIN ADULT 0.6 MG/DL (0.2-1.0)
[2016-10-12] MEDS: POTASSIUM CHLOR 20 MEQ PREMIX 100 ML IV PRN (06:13)
[2016-10-12] MEDS: PANTOPRAZOLE SOD 40 MG DELAYED RELEASE TAB PO SCH (07:44)
[2016-10-12] MEDS: CHLORHEXIDINE 0.12% (ORAL KIT) 15 ML CUP MT SCH ×2 (07:44→20:00)
[2016-10-12] MEDS: PANTOPRAZOLE SODIUM 40 MG VIAL IVP SCH (07:45)
[2016-10-12] MEDS: SODIUM CHLORIDE 0.9% FLUSH 5 ML FLUSH IVF SCH ×2 (07:46→21:00)
[2016-10-12] MEDS: DOCUSATE SODIUM 100 MG CAP PO SCH ×2 (07:46→21:00)
--- NOTE | 2016-10-12 09:05 | RADRPT ---
EXAM DATE/TIME: 10/12/2016 07:04 [facility] COMPARISON: US TRANSCRANIAL DOPPLER COMPLETE, October 11, 2016, 7:34. INDICATIONS : Subarachnoid hemorrhage. MEDICAL HISTORY : Hypertension. Respirtory failure. SURGICAL HISTORY : Left craniotomy. Ventriculostomy catheter. ENCOUNTER: Sequela ACUITY: 4-6 days PAIN SCORE: Nonresponsive. LOCATION: Bilateral cranial Current Exam: Oct 12, 2016 [place] Ratio: Right: 2.0 Left: 2.4 Rodriguez Ratio: Right: 1.2 Left: 1.7 Previous Exam: Oct 11, 2016 [place] Ratio: Right: 2.2 Left: 2.6 Rodriguez Ratio: Right: 1.5 Left: 1.3 FINDINGS: Examination performed at bedside. Real-time ultrasound with the assistance of color and spectral Dop pler was utilized to evaluate the intracerebral circulation. Time-averaged maximal velocities are ca lculated in cm/s. Waveforms and mean velocities within the expected range. No reversal of flow. CONCLUSION: No Doppler findings to suggest significant vasospasm. Santos Crockett Jr., MD on October 12, 2016 at 8:14 Board Certified Radiologist. This report was verified electronically.
--- NOTE | 2016-10-12 10:41 | RADRPT ---
EXAM DATE/TIME: 10/07/2016 15:46 [facility] COMPARISON: No previous studies available for comparison. INDICATIONS : Patient is in need of an emergent cerebral angiogram with aneurysm coiling. MEDICAL HISTORY : Unknown. SURGICAL HISTORY : Unknown. ENCOUNTER: Initial ACUITY: 1 day PAIN SCORE: 0/10 LOCATION: Patient is vented. FLUORO TIME: 25.3 minutes IMAGE SERIES: 10 ACCESS SITE: Right Femoral artery CONTRAST: 65 cc Visipaque (iodixanol) DEVICE(S): 1.) Left Posterior communicating artery 7mm x 21cm embolic coil(s) Complex Fill 2.) Left Posterior communicating artery 6mm x 15cm embolic coil(s) Complex Fill X 2 3.) Left Posterior communicating artery 5mm x 15cm embolic coil(s) Complex Fill 4.) Right common femoral artery 6Fr Perclose Anesthesia and pain control was provided by the Anesthesia department. PROCEDURE : 1. Ultrasound-guided puncture of the access site. 2. Angiography of the access site prior to closure device. 3. Conscious sedation with continuous EKG and Oximetry monitoring. 4. Percutaneous closure of the access site. 5. Angiography of the distal left internal carotid artery. 6. sequential coil embolization, left P-comm aneurysm The risks, benefits and alternatives to the procedure were explained and verbal and written consent w as obtained. The site was prepped in sterile fashion. Full sterile technique was used, including ca p, mask, sterile gloves and gown and a large sterile sheet. Hand hygiene and 2% chlorhexidine and/or betadine/alcohol prep was utilized per protocol for cutaneous antisepsis. The skin and subcutaneous tissues were infiltrated with local anesthetic solution. With ultrasound and fluoroscopic guidance the selected artery was punctured and a vascular sheath was placed. Angiography of the common femoral artery was performed for evaluation prior to percutaneous closure device placement. A REZA 2 catheter was used to select the left common carotid artery. Position was confirmed with positi ve contrast. Catheter and wire were manipulated into the external carotid system and the wire exchang e for a Magic torque. Over the Magic torque, a 6 Khmer Neuron sheath. Catheter was advanced into the distal common carotid. Wire and catheter were manipulated into the internal and the Neuron sheath ad vanced into the internal carotid just proximal to the skull base. Position was confirmed with positiv e contrast. This injection also demonstrated the complex, large left posterior communicating artery a neurysm. A 3-dimensional one was performed to evaluate the aneurysm neck. A hi Rene renegade catheter and agility wire were then manipulated into the aneurysm sac. Due to the i rregularity of the dome, any aneurysmal gram was not performed. The catheter was filled with a series of complex fill embolic coils with excellent protection of the dome and proximal body of the aneurys m. Due to the critical condition of the patient with both enlarged subarachnoid and subdural componen t with a large left right subfalcine shift, aggressive coiling of the base of the aneurysm was not pe rformed. Hemostasis was obtained with the prescribed medicated closure device. Conscious sedation was perform ed with the prescribed dosages and duration as above in the presence of an independent trained radiol ogy nurse to assist in the monitoring of the patient. EKG and oximetry remained stable throughout th e procedure. Patient was transported emergently to the OR for craniectomy and decompression of the byrnes bdural bleed. CONCLUSION: Left posterior communicating artery aneurysm coiling as above. Joni Shelton MD on October 12, 2016 at 10:32 Board Certified Radiologist. This report was verified electronically.
[2016-10-12] MEDS: NS + KCL 20 MEQ INJ 1,000 ML IV SCH ×2 (13:19→15:51)
--- NOTE | 2016-10-12 14:51 | HHI.PR ---
Subjective Remarks Follow-up for intracranial bleed Patient does not like to speak a lot due to his loose teeth. He is able to give his name, location, date. His girlfriends at the bedside and pretty much speaks for him. Patient has no complaints. Deny any shortness of breathing. His nurse at bedside. She has no concerns. He stated he is weak but denies any focal neurological deficits. Patient is in restraints secondary to pulling out his Maldonado multiple times. Objective Vitals Vital Signs Date Time Temp Pulse Resp B/P (MAP) Pulse Ox O2 Delivery O2 Flow Rate FiO2 10/12/16 14:00 68 10/12/16 12:00 66 10/12/16 12:00 98.1 66 22 156/79 (104) 100 10/12/16 10:28 100 21 10/12/16 10:00 67 10/12/16 08:00 63 10/12/16 08:00 98.4 63 20 157/80 (105) 100 10/12/16 06:00 64 10/12/16 04:00 79 10/12/16 04:00 97.7 62 18 147/77 (100) 99 10/12/16 03:55 98 10/12/16 02:00 64 10/12/16 00:00 68 10/12/16 00:00 98.7 60 16 145/77 (99) 97 10/11/16 22:00 74 10/11/16 20:00 99.1 68 23 148/76 (100) 100 10/11/16 20:00 74 10/11/16 18:00 84 10/11/16 16:56 99.1 10/11/16 16:00 84 10/11/16 16:00 102.4 88 24 151/67 (95) 99 I/O 10/11/16 10/11/16 10/11/16 10/12/16 10/12/16 10/12/16 07:00 15:00 23:00 07:00 15:00 23:00 Intake Total 1166 ml 2601 ml 1162 ml 1100 ml Output Total 1855 ml 2385 ml 1800 ml Balance -689 ml 216 ml -638 ml 1100 ml Intake Oral 200 ml IV Total 1166 ml 2401 ml 1162 ml 1100 ml Output Urine Total 1800 ml 2375 ml 1800 ml Drainage Total 55 ml 10 ml # Bowel Movements 0 Result Diagram: 10/12/1644110/12/16441 Objective Remarks GENERAL: in NAD HEAD: That is post craniotomy with jean in place. jean are dry clean and intact. EYES: No scleral icterus. No injection or drainage. NECK: Supple, trachea midline. No JVD or lymphadenopathy. CARDIOVASCULAR: Regular rate and rhythm without murmurs, gallops, or rubs. RESPIRATORY: Breath sounds equal bilaterally. No accessory muscle use. GASTROINTESTINAL: Abdomen soft, non-tender, nondistended. MUSCULOSKELETAL: No cyanosis, or edema. BACK: Nontender without obvious deformity. No CVA tenderness. Medications and IVs Current Medications Iohexol (Omnipaque 350 Inj) 100 ml STK-MED ONCE IVCONTRAST Last administered on 10/07/16 14:21; Start 10/07/16 at 14:21; Stop 10/07/16 at 15:21; Status DC Mannitol 50 ml @ As Directed STK-MED ONCE .ROUTE ; Start 10/07/16 at 15:25; Stop 10/07/16 at 15:26; Status DC Propofol 0 ml @ As Directed STK-MED ONCE .ROUTE ; Start 10/07/16 at 15:25; Stop 10/07/16 at 15:26; Status DC Levetriacetam (Keppra Inj) 1,000 mg STK-MED ONCE IV Last administered on 18:30; Start 10/07/16 at 15:27; Stop 10/07/16 at 15:28; Status DC Mannitol (Mannitol Inj) 50 gm ONCE ONCE IV ; Start 10/07/16 at 15:30; Stop at 15:31; Status DC Nicardipine HCl 25 mg/Sodium Chloride 260 ml @ 52 mls/hr Q5H PRN IV Blood pressure management; Start 10/07/16 at 15:40 Propofol 100 ml @ 0 mls/hr Q0M PRN IV Ordered RASS Last administered on 23:01; Start 10/07/16 at 15:40; Stop 10/07/16 at 23:16; Status DC Sodium Chloride 1,000 ml @ 75 mls/hr [id number] IV ; Start 10/07/16 at 16:08; Stop 10/07/16 at 18:34; Status DC Sodium Chloride (NS Flush) 2 ml UNSCH PRN IV FLUSH FLUSH AFTER USING IV ACCESS ; Start 10/07/16 at 16:15; Stop 10/07/16 at 18:40; Status DC Sodium Chloride (NS Flush) 2 ml BID IV FLUSH ; Start 10/07/16 at 21:00; Stop at 21:00; Status DC Acetaminophen (Tylenol) 650 mg Q6H PRN PO PAIN 1-10 AND/OR FEVER >101F; Start 10/07/16 at 16:15; Stop 10/07/16 at 19:04; Status DC Albuterol/ Ipratropium (Duoneb Neb) 1 ampule Q6HR NEB NEB Last administered on 10/11/16 15:16; Start 10/07/16 at 22:00; Stop 10/11/16 at 21:59; Status DC Albuterol/ Ipratropium (Duoneb Neb) 1 ampule Q4HR NEB PRN INH SHORTNESS OF BREATH; Start 10/07/16 at 16:15 Chlorhexidine Gluconate (Peridex 0.12% Liq) 15 ml BID@08,20 MT Last administered on 10/10/16 09:08; Start 10/07/16 at 20:00 Pantoprazole Sodium (Protonix Inj) 40 mg DAILY IV ; Start 10/08/16 at 09:00; Stop 10/08/16 at 09:00; Status DC Miscellaneous Information 1 [id number] XX ; Start 10/07/16 at 16:15 Chlorhexidine Gluconate (Chlorhexidine 2% Cloth) 3 pack Taper DAILY@04 TOP Last administered on 10/12/16 04:44; Start 10/08/16 at 04:00; Stop 10/04/17 at 03:59 Chlorhexidine Gluconate (Chlorhexidine 2% Cloth) 3 pack UNSCH PRN TOP HYGIENIC CARE; Start 10/07/16 at 16:15 Insulin Aspart (NovoLOG SUPPLEMENTAL SCALE) 1 Q6HR SQ ; Start 10/07/16 at 18:00 Propofol 100 ml @ 0 mls/hr Q0M PRN IV SEDATION; Start 10/07/16 at 16:08; Status UNV Nimodipine (Nimotop) 60 mg Q4HR OG-TUBE Last administered on 10/12/16 11:13; Start 10/07/16 at 20:00 Verapamil HCl (Isoptin Inj) 10 mg STK-MED ONCE .ROUTE ; Start 10/07/16 at 16:45 ; Stop 10/07/16 at 16:46; Status DC Nitroglycerin (Nitroglycerin 2% Oint) 1 inch STK-MED ONCE .ROUTE ; Start at 16:55; Stop 10/07/16 at 16:56; Status DC Heparin Sodium (Porcine) (Heparin Inj) 10,000 units STK-MED ONCE .ROUTE ; Start 10/07/16 at 16:56; Stop 10/07/16 at 16:57; Status DC Potassium Chloride/Sodium Chloride 1,000 ml @ 100 mls/hr Q10H IV Last administered on 10/12/16 13:19; Start 10/07/16 at 18:20 IV Flush (NS Flush) 2 ml UNSCH PRN IVF FLUSH AFTER USING IV ACCESS; Start 10/07 at 18:30 IV Flush (NS Flush) 2 ml BID IVF Last administered on 10/12/16 07:46; Start at 21:00 Cefazolin Sodium/ Dextrose 50 ml @ 100 mls/hr Q8H IV Last administered on 10/08 10:30; Start 10/07/16 at 19:00; Stop 10/08/16 at 11:29; Status DC Levetriacetam 500 mg/Sodium Chloride 105 ml @ 400 mls/hr Q12H IV Last administered on 10/12/16 05:49; Start 10/08/16 at 06:00 Bisacodyl (Dulcolax Supp) 10 mg DAILY PRN RECTAL CONSTIPATION; Start 10/07/16 at 18:30 Docusate Sodium (Colace) 100 mg BID PO Last administered on 10/12/16 07:46; Start 10/07/16 at 21:00 Pantoprazole Sodium (Protonix) 40 mg DAILY PO ; Start 10/08/16 at 09:00 Pantoprazole Sodium (Protonix Inj) 40 mg DAILY IVP Last administered on 07:45; Start 10/08/16 at 09:00 Ondansetron HCl (Zofran Inj) 4 mg Q6H PRN IV NAUSEA OR VOMITING; Start at 18:30 Calcium Gluconate (Calcium Gluconate Inj) 1 gm UNSCH PRN IV SEE LABEL COMMENTS ; Start 10/07/16 at 18:30 Potassium Chloride 100 ml @ 50 mls/hr UNSCH PRN IV POTASSIUM LESS THAN 4 Last administered on 10/12/16 06:13; Start 10/07/16 at 18:30 Magnesium Sulfate 4 gm/Sodium Chloride 108 ml @ 108 mls/hr UNSCH PRN IV MAGNESIUM LESS THAN 2; Start 10/07/16 at 18:30 Acetaminophen/ Hydrocodone Bitart ([place]ell 10-325 Mg) 1 tab Q4H PRN PO PAIN SCALE 1 TO 5 Last administered on 10/11/16 20:31; Start 10/07/16 at 18:30 Acetaminophen/ Hydrocodone Bitart ([place]ell 10-325 Mg) 2 tab Q4H PRN PO PAIN SCALE 6 TO 10 Last administered on 10/09/16 10:20; Start 10/07/16 at 18:30 Morphine Sulfate (Morphine Inj) 2 mg Q2H PRN IV PUSH PAIN SCALE 1 TO 6 Last administered on 10/10/16 17:52; Start 10/07/16 at 18:30 Morphine Sulfate (Morphine Inj) 4 mg Q2H PRN IV PUSH PAIN SCALE 7 TO 10 Last administered on 10/08/16 01:55; Start 10/07/16 at 18:30 Acetaminophen (Tylenol) 650 mg Q4H PRN PO TEMPERATURE > 101.5 F Last administered on 10/11/16 15:57; Start 10/07/16 at 18:30 Iodixanol (VISIPAQUE 320 INJ (Rad Spec)) 65 ml STK-MED ONCE I-ARTERIAL Last administered on 10/07/16 18:38; Start 10/07/16 at 18:38; Stop 10/07/16 at 18:39 ; Status DC Dextrose (D50w (Vial) Inj) 50 ml UNSCH PRN IV PUSH HYPOGLYCEMIA - SEE COMMENTS ; Start 10/07/16 at 19:15 Glucagon (Glucagon Inj) 1 mg UNSCH PRN OTHER HYPOGLYCEMIA-SEE COMMENTS; Start 10/07/16 at 19:15 Midazolam HCl (Versed Inj) 4 mg STK-MED ONCE .ROUTE ; Start 10/07/16 at 19:51; Stop 10/07/16 at 19:52; Status DC Fentanyl Citrate (fentaNYL INJ) 250 mcg STK-MED ONCE .ROUTE ; Start 10/07/16 at 20:32; Stop 10/07/16 at 20:33; Status DC Propofol 100 ml @ 0 mls/hr TITRATE PRN IV Sedation Last administered on 17at 06:51; Start 10/07/16 at 23:15 Epinephrine HCl (EPINEPHrine (1:10,000) INJ) 1 mg STK-MED ONCE .ROUTE ; Start at 04:09; Stop 10/09/16 at 04:10; Status DC Atropine Sulfate (Atropine Inj) 1 mg STK-MED ONCE .ROUTE ; Start 10/09/16 at 04: 09; Stop 10/09/16 at 04:10; Status DC Lidocaine HCl (Xylocaine 2% Inj) 100 mg STK-MED ONCE .ROUTE ; Start 10/09/16 at 04:09; Stop 10/09/16 at 04:10; Status DC A/P Assessment and Plan Respiratory failure -Extubated on 10/10 following C Pap trial. Tolerating nasal cannula. Bronchodilators as needed. -Patient is doing well. Subarachnoid/subdural bleed secondary to rupture aneurysm. - Status post successful coiling embolization 10/08 - Status post subdural hematoma evacuation 10/08 - Status post Ventricular colostomy and SHRUTHI drains discontinued on 10/11. - SBP controlled with the goal less than 150. - TCD's daily - Monitor for vasospasm - Management per neurosurgery - Nimodipine for vasospasm prophylaxis - Keppra for seizure prophylaxis Hypertension -Patient on nimodipine - Hydralazine and labetalol when necessary to keep SBP less than 180 JULIANAI -Per speech therapist phill for soft diet and thin liquids. He should have poor dentures. Multiple loose tooth. Per patient's girlfriend will need his flu is pured. DVT GI prophylaxis - SCDs - Teds - No pharmacological DVT prophylaxis due to ICH - Reassess for pharmacological prophylaxis after 48 hours of presentation per neurosurgery - Pepcid Dealt with patient's nurse to try to remove restraints since patient follow commands and does not seem to be agitated. Discharge Planning Dealt with Dr. Orlando pollock to transfer to floor. Arline Moore MD Oct 12, 2016 14:51
--- NOTE | 2016-10-12 17:06 | HHI.NSPN ---
Note Status Status: Progress Note Interval History Diagnosis SAH Interval History This is a 56-year-old male brought to the emergency room as an emergency transfer from another institution with history of intracranial bleed. He was transferred from [facility] and [facility]. Apparently the patient said that patient earlier this morning was coming down the stairs when he started feeling some left-sided weakness and numbness. He called 911 and by the time EMS arrived they detected severe neurological deficits and called a stroke alert. No seizure activity reported. No tongue biting. No incontinence of stool or urine. Patient was taken to [facility]. Apparently he was not able to move his right side . When patient arrived his mental status started to decline and he was intubated emergently in the ER for airway protection. A CT scan of the head showed extensive subarachnoid bleed. In addition he had a sizable subdural hematoma. He was brought emergently on the ventilator. He was on a propofol drip and well sedated. GCS was 3. He was on a Cardene drip and blood pressure was in the 120s. Neurosurgical consultation was requested 10/08. POD #1 Open eyes and follows commands 10/12. Doing very well. Neurologically stable. Patient is in restraints secondary to pulling out his [place] multiple times. Labs, Micro, & Vital Signs Results Date Time Temp Pulse Resp B/P (MAP) Pulse Ox O2 Delivery O2 Flow Rate FiO2 10/12/16 16:00 66 10/12/16 16:00 98.9 66 19 138/80 (99) 100 Arterial Line 10/12/16 14:00 68 10/12/16 12:00 66 10/12/16 12:00 98.1 66 22 156/79 (104) 100 10/12/16 10:28 100 21 10/12/16 10:00 67 10/12/16 08:00 63 10/12/16 08:00 98.4 63 20 157/80 (105) 100 10/12/16 06:00 64 10/12/16 04:00 79 10/12/16 04:00 97.7 62 18 147/77 (100) 99 10/12/16 03:55 98 10/12/16 02:00 64 10/12/16 00:00 68 10/12/16 00:00 98.7 60 16 145/77 (99) 97 10/11/16 22:00 74 10/11/16 20:00 99.1 68 23 148/76 (100) 100 10/11/16 20:00 74 10/11/16 18:00 84 10/13/16 07:00 Intake Total 1100 ml Balance 1100 ml Constitutional Vital Signs Date Time Temp Pulse Resp B/P (MAP) Pulse Ox O2 Delivery O2 Flow Rate FiO2 10/12/16 16:00 66 10/12/16 16:00 98.9 66 19 138/80 (99) 100 Arterial Line 10/12/16 14:00 68 10/12/16 12:00 66 10/12/16 12:00 98.1 66 22 156/79 (104) 100 10/12/16 10:28 100 21 10/12/16 10:00 67 10/12/16 08:00 63 10/12/16 08:00 98.4 63 20 157/80 (105) 100 10/12/16 06:00 64 10/12/16 04:00 79 10/12/16 04:00 97.7 62 18 147/77 (100) 99 10/12/16 03:55 98 10/12/16 02:00 64 10/12/16 00:00 68 10/12/16 00:00 98.7 60 16 145/77 (99) 97 10/11/16 22:00 74 10/11/16 20:00 99.1 68 23 148/76 (100) 100 10/11/16 20:00 74 10/11/16 18:00 84 10/13/16 07:00 Intake Total 1100 ml Balance 1100 ml Physical Exam He is alert, awake and oriented. Speech is fluent. Cranial nerve examination: pupils to be equal, round and reactive to light. Extra-ocular movements are intact. Facial motor and sensory function are normal and symmetrical. Gross hearing appears intact. Sternocleidomastoid and trapezius muscles are symmetrical. Other cranial nerves are intact. Neck is soft and supple with a good range of motion without pain. Muscle strength is normal in all muscle groups of both upper and lower extremities. Sensory examination is intact to light touch and pin prick in both the upper and lower extremities. Deep tendon reflexes are symmetrical in both upper and lower extremities. There is a bilateral plantar flexion response. Cerebellar examination is unremarkable, without deficits. Medications Current Medications Current Medications Iohexol (Omnipaque 350 Inj) 100 ml STK-MED ONCE IVCONTRAST Last administered on 10/07/16 14:21; Start 10/07/16 at 14:21; Stop 10/07/16 at 15:21; Status DC Mannitol 50 ml @ As Directed STK-MED ONCE .ROUTE ; Start 10/07/16 at 15:25; Stop 10/07/16 at 15:26; Status DC Propofol 0 ml @ As Directed STK-MED ONCE .ROUTE ; Start 10/07/16 at 15:25; Stop 10/07/16 at 15:26; Status DC Levetriacetam (Keppra Inj) 1,000 mg STK-MED ONCE IV Last administered on 18:30; Start 10/07/16 at 15:27; Stop 10/07/16 at 15:28; Status DC Mannitol (Mannitol Inj) 50 gm ONCE ONCE IV ; Start 10/07/16 at 15:30; Stop at 15:31; Status DC Nicardipine HCl 25 mg/Sodium Chloride 260 ml @ 52 mls/hr Q5H PRN IV Blood pressure management; Start 10/07/16 at 15:40 Propofol 100 ml @ 0 mls/hr Q0M PRN IV Ordered RASS Last administered on 23:01; Start 10/07/16 at 15:40; Stop 10/07/16 at 23:16; Status DC Sodium Chloride 1,000 ml @ 75 mls/hr [id number] IV ; Start 10/07/16 at 16:08; Stop 10/07/16 at 18:34; Status DC Sodium Chloride (NS Flush) 2 ml UNSCH PRN IV FLUSH FLUSH AFTER USING IV ACCESS ; Start 10/07/16 at 16:15; Stop 10/07/16 at 18:40; Status DC Sodium Chloride (NS Flush) 2 ml BID IV FLUSH ; Start 10/07/16 at 21:00; Stop at 21:00; Status DC Acetaminophen (Tylenol) 650 mg Q6H PRN PO PAIN 1-10 AND/OR FEVER >101F; Start 10/07/16 at 16:15; Stop 10/07/16 at 19:04; Status DC Albuterol/ Ipratropium (Duoneb Neb) 1 ampule Q6HR NEB NEB Last administered on 10/11/16 15:16; Start 10/07/16 at 22:00; Stop 10/11/16 at 21:59; Status DC Albuterol/ Ipratropium (Duoneb Neb) 1 ampule Q4HR NEB PRN INH SHORTNESS OF BREATH; Start 10/07/16 at 16:15 Chlorhexidine Gluconate (Peridex 0.12% Liq) 15 ml BID@08,20 MT Last administered on 10/10/16 09:08; Start 10/07/16 at 20:00 Pantoprazole Sodium (Protonix Inj) 40 mg DAILY IV ; Start 10/08/16 at 09:00; Stop 10/08/16 at 09:00; Status DC Miscellaneous Information 1 Q361D XX ; Start 10/07/16 at 16:15 Chlorhexidine Gluconate (Chlorhexidine 2% Cloth) 3 pack Taper DAILY@04 TOP Last administered on 10/12/16 04:44; Start 10/08/16 at 04:00; Stop 10/04/17 at 03:59 Chlorhexidine Gluconate (Chlorhexidine 2% Cloth) 3 pack UNSCH PRN TOP HYGIENIC CARE; Start 10/07/16 at 16:15 Insulin Aspart (NovoLOG SUPPLEMENTAL SCALE) 1 Q6HR SQ ; Start 10/07/16 at 18:00 Propofol 100 ml @ 0 mls/hr Q0M PRN IV SEDATION; Start 10/07/16 at 16:08; Status UNV Nimodipine (Nimotop) 60 mg Q4HR OG-TUBE Last administered on 10/12/16 15:18; Start 10/07/16 at 20:00 Verapamil HCl (Isoptin Inj) 10 mg STK-MED ONCE .ROUTE ; Start 10/07/16 at 16:45 ; Stop 10/07/16 at 16:46; Status DC Nitroglycerin (Nitroglycerin 2% Oint) 1 inch STK-MED ONCE .ROUTE ; Start at 16:55; Stop 10/07/16 at 16:56; Status DC Heparin Sodium (Porcine) (Heparin Inj) 10,000 units STK-MED ONCE .ROUTE ; Start 10/07/16 at 16:56; Stop 10/07/16 at 16:57; Status DC Potassium Chloride/Sodium Chloride 1,000 ml @ 100 mls/hr Q10H IV Last administered on 10/12/16 13:19; Start 10/07/16 at 18:20 IV Flush (NS Flush) 2 ml UNSCH PRN IVF FLUSH AFTER USING IV ACCESS; Start 10/07 at 18:30 IV Flush (NS Flush) 2 ml BID IVF Last administered on 10/12/16 07:46; Start at 21:00 Cefazolin Sodium/ Dextrose 50 ml @ 100 mls/hr Q8H IV Last administered on 10/08 10:30; Start 10/07/16 at 19:00; Stop 10/08/16 at 11:29; Status DC Levetriacetam 500 mg/Sodium Chloride 105 ml @ 400 mls/hr Q12H IV Last administered on 10/12/16 16:37; Start 10/08/16 at 06:00 Bisacodyl (Dulcolax Supp) 10 mg DAILY PRN RECTAL CONSTIPATION; Start 10/07/16 at 18:30 Docusate Sodium (Colace) 100 mg BID PO Last administered on 10/12/16 07:46; Start 10/07/16 at 21:00 Pantoprazole Sodium (Protonix) 40 mg DAILY PO ; Start 10/08/16 at 09:00 Pantoprazole Sodium (Protonix Inj) 40 mg DAILY IVP Last administered on 07:45; Start 10/08/16 at 09:00; Stop 10/12/16 at 14:30; Status DC Ondansetron HCl (Zofran Inj) 4 mg Q6H PRN IV NAUSEA OR VOMITING; Start at 18:30 Calcium Gluconate (Calcium Gluconate Inj) 1 gm UNSCH PRN IV SEE LABEL COMMENTS ; Start 10/07/16 at 18:30 Potassium Chloride 100 ml @ 50 mls/hr UNSCH PRN IV POTASSIUM LESS THAN 4 Last administered on 10/12/16 06:13; Start 10/07/16 at 18:30 Magnesium Sulfate 4 gm/Sodium Chloride 108 ml @ 108 mls/hr UNSCH PRN IV MAGNESIUM LESS THAN 2; Start 10/07/16 at 18:30 Acetaminophen/ Hydrocodone Bitart (Ossian 10-325 Mg) 1 tab Q4H PRN PO PAIN SCALE 1 TO 5 Last administered on 10/11/16 20:31; Start 10/07/16 at 18:30 Acetaminophen/ Hydrocodone Bitart (Ossian 10-325 Mg) 2 tab Q4H PRN PO PAIN SCALE 6 TO 10 Last administered on 10/09/16 10:20; Start 10/07/16 at 18:30 Morphine Sulfate (Morphine Inj) 2 mg Q2H PRN IV PUSH PAIN SCALE 1 TO 6 Last administered on 10/10/16 17:52; Start 10/07/16 at 18:30 Morphine Sulfate (Morphine Inj) 4 mg Q2H PRN IV PUSH PAIN SCALE 7 TO 10 Last administered on 10/08/16 01:55; Start 10/07/16 at 18:30 Acetaminophen (Tylenol) 650 mg Q4H PRN PO TEMPERATURE > 101.5 F Last administered on 10/11/16 15:57; Start 10/07/16 at 18:30 Iodixanol (VISIPAQUE 320 INJ (Rad Spec)) 65 ml STK-MED ONCE I-ARTERIAL Last administered on 10/07/16 18:38; Start 10/07/16 at 18:38; Stop 10/07/16 at 18:39 ; Status DC Dextrose (D50w (Vial) Inj) 50 ml UNSCH PRN IV PUSH HYPOGLYCEMIA - SEE COMMENTS ; Start 10/07/16 at 19:15 Glucagon (Glucagon Inj) 1 mg UNSCH PRN OTHER HYPOGLYCEMIA-SEE COMMENTS; Start 10/07/16 at 19:15 Midazolam HCl (Versed Inj) 4 mg STK-MED ONCE .ROUTE ; Start 10/07/16 at 19:51; Stop 10/07/16 at 19:52; Status DC Fentanyl Citrate (fentaNYL INJ) 250 mcg STK-MED ONCE .ROUTE ; Start 10/07/16 at 20:32; Stop 10/07/16 at 20:33; Status DC Propofol 100 ml @ 0 mls/hr TITRATE PRN IV Sedation Last administered on 8/28/ 17at 06:51; Start 10/07/16 at 23:15 Epinephrine HCl (EPINEPHrine (1:10,000) INJ) 1 mg STK-MED ONCE .ROUTE ; Start at 04:09; Stop 10/09/16 at 04:10; Status DC Atropine Sulfate (Atropine Inj) 1 mg STK-MED ONCE .ROUTE ; Start 10/09/16 at 04: 09; Stop 10/09/16 at 04:10; Status DC Lidocaine HCl (Xylocaine 2% Inj) 100 mg STK-MED ONCE .ROUTE ; Start 10/09/16 at 04:09; Stop 10/09/16 at 04:10; Status DC Medical Decision Making MDM Remarks Last 48 hours Impressions Transcranial Doppler Study Complete 10/12/16 0600 Signed Impressions: Service Date/Time: Wednesday, October 12, 2016 07:04 - CONCLUSION: No Doppler findings to suggest significant vasospasm. Santos Crockett Jr., MD Transcranial Doppler Study Complete 10/11/16 0600 Signed Impressions: Service Date/Time: Tuesday, October 11, 2016 07:34 - CONCLUSION: Normal transcranial Doppler parameters and indices Yosvany Polk MD Last Impressions Chest X-Ray 10/07/16 1700 Signed Impressions: Service Date/Time: Friday, October 07, 2016 20:53 - CONCLUSION: 1. Clear lungs. 2. A properly positioned endotracheal tube. 3. Nasogastric tube tip is in the upper stomach. The side hole is above the GE junction. Yosvany Butler MD Neck CTA 10/07/16 0000 Signed Impressions: Service Date/Time: Friday, October 07, 2016 15:03 - CONCLUSION: 1. Mild carotid bulb atherosclerotic calcification bilaterally. However, no significant stenosis is present in either internal carotid artery. 2. Paranasal sinus mucoperiosteal thickening. 3. Please refer to brain CTA report for description of the intracranial findings. Yosvany Ramirez MD Head CTA 10/07/16 0000 Signed Impressions: Service Date/Time: Friday, October 07, 2016 15:03 - CONCLUSION: 1. 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 2. Large left subdural hematoma measuring 1.3 cm in depth with a significant, 1.6 cm left to right subfalcine shift. Joni Shelton MD Head CT 10/07/16 0000 Signed Impressions: Service Date/Time: Friday, October 07, 2016 15:01 - CONCLUSION: Extensive intracranial hemorrhage on the left as detailed above with midline shift of 14 mm left to right. See the CTA reported separately. Santos Crockett Jr., MD Attending Statement Continue neuro checks in a serial fashion. A follow-up TCD daily. Continue Keppra for prophylaxis of seizures. Nimotop for prophylaxis of vasospasm Pulmonary. continue Aggressive pulmonary toilette, nasotracheal suction, and breathing treatments with nebulizers. daily PT and OT Oral diet Renal. Continue to monitor closely urine output, BUN and creatinine Endocrine. Continue to Monitor serial Acu checks and SSI as needed in detail ID Continue to monitor for signs of infection Continue Protonix for stress ulcer prophylaxis Continue Colt hose and SCD's for DVT prophylaxis George Perry MD Oct 12, 2016 17:06
[2016-10-12] MEDS: ACETAMINOPHEN 325 MG TAB PO PRN (18:15)
[2016-10-13] VITALS (10 sets, daily range): BP systolic 119–162; BP diastolic 72–85; PULSE 61–82; RESP 18–22; TEMP 98.2–100.5; O2SAT 97–100
[2016-10-13] MEDS: niMODipine 30 MG CAP PO SCH ×5 (00:28→19:21)
[2016-10-13] MEDS: NS + KCL 20 MEQ INJ 1,000 ML IV SCH ×2 (04:20→10:07)
[2016-10-13] MEDS: INSULIN ASPART SUPPLEMENTAL SCALE SQ SCH ×3 (05:48→12:00)
[2016-10-13] MEDS: levETIRAcetam INJ 500 MG in SODIUM CHLORIDE 0.9% INJ 100 ML IV SCH ×2 (06:46→20:55)
[2016-10-13] MEDS: CHLORHEXIDINE 0.12% (ORAL KIT) 15 ML CUP MT SCH ×2 (08:00→20:00)
[2016-10-13] MEDS: SODIUM CHLORIDE 0.9% FLUSH 5 ML FLUSH IVF SCH ×2 (09:00→20:11)
[2016-10-13] MEDS: DOCUSATE SODIUM 100 MG CAP PO SCH ×2 (09:00→21:00)
[2016-10-13] MEDS: PANTOPRAZOLE SOD 40 MG DELAYED RELEASE TAB PO SCH (09:44)
--- NOTE | 2016-10-13 11:47 | HHI.PR ---
Subjective Remarks Follow-up for intracranial bleed Patient seems to be altered today. He is able to give me his name. Otherwise he cannot answer any questions. He was agitated and pulled his IVs out today so restraints had to be placed. No focal neurological deficit noted. He does not follow commands well. Dealt with patient's nurse Joni Objective Vitals Vital Signs Date Time Temp Pulse Resp B/P (MAP) Pulse Ox O2 Delivery O2 Flow Rate FiO2 10/13/16 08:00 98.7 61 20 150/85 (106) 98 10/13/16 04:00 98.4 70 18 162/78 (106) 98 10/13/16 02:48 99 10/13/16 00:00 98.2 67 18 126/78 (94) 98 10/12/16 20:00 97.3 92 18 122/68 (86) 95 10/12/16 16:00 66 10/12/16 16:00 98.9 66 19 138/80 (99) 100 Arterial Line 10/12/16 14:00 68 10/12/16 12:00 66 10/12/16 12:00 98.1 66 22 156/79 (104) 100 I/O 10/12/16 10/12/16 10/12/16 10/13/16 10/13/16 10/13/16 07:00 15:00 23:00 07:00 15:00 23:00 Intake Total 1162 ml 1100 ml 1634 ml Output Total 1800 ml 1400 ml 950 ml Balance -638 ml 1100 ml 234 ml -950 ml Intake Oral 200 ml IV Total 1162 ml 1100 ml 1434 ml Output Urine Total 1800 ml 1400 ml 950 ml # Voids 2 # Bowel Movements 2 Result Diagram: 10/12/16 0442 10/12/16 1348 Objective Remarks GENERAL: in NAD HEAD: That is post craniotomy with jean in place. jean are dry clean and intact. EYES: No scleral icterus. No injection or drainage. NECK: Supple, trachea midline. No JVD or lymphadenopathy. CARDIOVASCULAR: Regular rate and rhythm without murmurs, gallops, or rubs. RESPIRATORY: Breath sounds equal bilaterally. No accessory muscle use. GASTROINTESTINAL: Abdomen soft, non-tender, nondistended. Neuro: AAO X 1 knows name. Patient does not follow commands so hard to do a neurological disease. Expect from being little more confused today he seems to be at baseline. Medications and IVs Current Medications Iohexol (Omnipaque 350 Inj) 100 ml STK-MED ONCE IVCONTRAST Last administered on 10/07/16 14:21; Start 10/07/16 at 14:21; Stop 10/07/16 at 15:21; Status DC Mannitol 50 ml @ As Directed STK-MED ONCE .ROUTE ; Start 10/07/16 at 15:25; Stop 10/07/16 at 15:26; Status DC Propofol 0 ml @ As Directed STK-MED ONCE .ROUTE ; Start 10/07/16 at 15:25; Stop 10/07/16 at 15:26; Status DC Levetriacetam (Keppra Inj) 1,000 mg STK-MED ONCE IV Last administered on 18:30; Start 10/07/16 at 15:27; Stop 10/07/16 at 15:28; Status DC Mannitol (Mannitol Inj) 50 gm ONCE ONCE IV ; Start 10/07/16 at 15:30; Stop at 15:31; Status DC Nicardipine HCl 25 mg/Sodium Chloride 260 ml @ 52 mls/hr Q5H PRN IV Blood pressure management; Start 10/07/16 at 15:40 Propofol 100 ml @ 0 mls/hr Q0M PRN IV Ordered RASS Last administered on 23:01; Start 10/07/16 at 15:40; Stop 10/07/16 at 23:16; Status DC Sodium Chloride 1,000 ml @ 75 mls/hr [id number] IV ; Start 10/07/16 at 16:08; Stop 10/07/16 at 18:34; Status DC Sodium Chloride (NS Flush) 2 ml UNSCH PRN IV FLUSH FLUSH AFTER USING IV ACCESS ; Start 10/07/16 at 16:15; Stop 10/07/16 at 18:40; Status DC Sodium Chloride (NS Flush) 2 ml BID IV FLUSH ; Start 10/07/16 at 21:00; Stop at 21:00; Status DC Acetaminophen (Tylenol) 650 mg Q6H PRN PO PAIN 1-10 AND/OR FEVER >101F; Start 10/07/16 at 16:15; Stop 10/07/16 at 19:04; Status DC Albuterol/ Ipratropium (Duoneb Neb) 1 ampule Q6HR NEB NEB Last administered on 10/11/16 15:16; Start 10/07/16 at 22:00; Stop 10/11/16 at 21:59; Status DC Albuterol/ Ipratropium (Duoneb Neb) 1 ampule Q4HR NEB PRN INH SHORTNESS OF BREATH; Start 10/07/16 at 16:15 Chlorhexidine Gluconate (Peridex 0.12% Liq) 15 ml BID@08,20 MT Last administered on 10/10/16 09:08; Start 10/07/16 at 20:00 Pantoprazole Sodium (Protonix Inj) 40 mg DAILY IV ; Start 10/08/16 at 09:00; Stop 10/08/16 at 09:00; Status DC Miscellaneous Information 1 Q361D XX ; Start 10/07/16 at 16:15 Chlorhexidine Gluconate (Chlorhexidine 2% Cloth) Taper DAILY@04 TOP Last administered on 10/12/16 04:44; Start 10/08/16 at 04:00; Stop 10/04/17 at 03:59 Chlorhexidine Gluconate (Chlorhexidine 2% Cloth) 3 pack UNSCH PRN TOP HYGIENIC CARE; Start 10/07/16 at 16:15 Insulin Aspart (NovoLOG SUPPLEMENTAL SCALE) 1 Q6HR SQ ; Start 10/07/16 at 18:00 Propofol 100 ml @ 0 mls/hr Q0M PRN IV SEDATION; Start 10/07/16 at 16:08; Status UNV Nimodipine (Nimotop) 60 mg Q4HR OG-TUBE Last administered on 10/12/16 15:18; Start 10/07/16 at 20:00; Stop 10/12/16 at 23:47; Status DC Verapamil HCl (Isoptin Inj) 10 mg STK-MED ONCE .ROUTE ; Start 10/07/16 at 16:45 ; Stop 10/07/16 at 16:46; Status DC Nitroglycerin (Nitroglycerin 2% Oint) 1 inch STK-MED ONCE .ROUTE ; Start at 16:55; Stop 10/07/16 at 16:56; Status DC Heparin Sodium (Porcine) (Heparin Inj) 10,000 units STK-MED ONCE .ROUTE ; Start 10/07/16 at 16:56; Stop 10/07/16 at 16:57; Status DC Potassium Chloride/Sodium Chloride 1,000 ml @ 100 mls/hr Q10H IV Last administered on 10/13/16 10:07; Start 10/07/16 at 18:20 IV Flush (NS Flush) 2 ml UNSCH PRN IVF FLUSH AFTER USING IV ACCESS; Start 10/07 at 18:30 IV Flush (NS Flush) 2 ml BID IVF Last administered on 10/12/16 07:46; Start at 21:00 Cefazolin Sodium/ Dextrose 50 ml @ 100 mls/hr Q8H IV Last administered on 10/08 10:30; Start 10/07/16 at 19:00; Stop 10/08/16 at 11:29; Status DC Levetriacetam 500 mg/Sodium Chloride 105 ml @ 400 mls/hr Q12H IV Last administered on 10/13/16 06:46; Start 10/08/16 at 06:00 Bisacodyl (Dulcolax Supp) 10 mg DAILY PRN RECTAL CONSTIPATION; Start 10/07/16 at 18:30 Docusate Sodium (Colace) 100 mg BID PO Last administered on 10/12/16 07:46; Start 10/07/16 at 21:00 Pantoprazole Sodium (Protonix) 40 mg DAILY PO Last administered on 10/13/16 09 :44; Start 10/08/16 at 09:00 Pantoprazole Sodium (Protonix Inj) 40 mg DAILY IVP Last administered on 07:45; Start 10/08/16 at 09:00; Stop 10/12/16 at 14:30; Status DC Ondansetron HCl (Zofran Inj) 4 mg Q6H PRN IV NAUSEA OR VOMITING; Start at 18:30 Calcium Gluconate (Calcium Gluconate Inj) 1 gm UNSCH PRN IV SEE LABEL COMMENTS ; Start 10/07/16 at 18:30 Potassium Chloride 100 ml @ 50 mls/hr UNSCH PRN IV POTASSIUM LESS THAN 4 Last administered on 10/12/16 06:13; Start 10/07/16 at 18:30 Magnesium Sulfate 4 gm/Sodium Chloride 108 ml @ 108 mls/hr UNSCH PRN IV MAGNESIUM LESS THAN 2; Start 10/07/16 at 18:30 Acetaminophen/ Hydrocodone Bitart (Lott 10-325 Mg) 1 tab Q4H PRN PO PAIN SCALE 1 TO 5 Last administered on 10/11/16 20:31; Start 10/07/16 at 18:30 Acetaminophen/ Hydrocodone Bitart (Lott 10-325 Mg) 2 tab Q4H PRN PO PAIN SCALE 6 TO 10 Last administered on 10/09/16 10:20; Start 10/07/16 at 18:30 Morphine Sulfate (Morphine Inj) 2 mg Q2H PRN IV PUSH PAIN SCALE 1 TO 6 Last administered on 10/10/16 17:52; Start 10/07/16 at 18:30 Morphine Sulfate (Morphine Inj) 4 mg Q2H PRN IV PUSH PAIN SCALE 7 TO 10 Last administered on 10/08/16 01:55; Start 10/07/16 at 18:30 Acetaminophen (Tylenol) 650 mg Q4H PRN PO TEMPERATURE > 101.5 F Last administered on 10/12/16 18:15; Start 10/07/16 at 18:30 Iodixanol (VISIPAQUE 320 INJ (Rad Spec)) 65 ml STK-MED ONCE I-ARTERIAL Last administered on 10/07/16 18:38; Start 10/07/16 at 18:38; Stop 10/07/16 at 18:39 ; Status DC Dextrose (D50w (Vial) Inj) 50 ml UNSCH PRN IV PUSH HYPOGLYCEMIA - SEE COMMENTS ; Start 10/07/16 at 19:15 Glucagon (Glucagon Inj) 1 mg UNSCH PRN OTHER HYPOGLYCEMIA-SEE COMMENTS; Start 10/07/16 at 19:15 Midazolam HCl (Versed Inj) 4 mg STK-MED ONCE .ROUTE ; Start 10/07/16 at 19:51; Stop 10/07/16 at 19:52; Status DC Fentanyl Citrate (fentaNYL INJ) 250 mcg STK-MED ONCE .ROUTE ; Start 10/07/16 at 20:32; Stop 10/07/16 at 20:33; Status DC Propofol 100 ml @ 0 mls/hr TITRATE PRN IV Sedation Last administered on 06:51; Start 10/07/16 at 23:15 Epinephrine HCl (EPINEPHrine (1:10,000) INJ) 1 mg STK-MED ONCE .ROUTE ; Start at 04:09; Stop 10/09/16 at 04:10; Status DC Atropine Sulfate (Atropine Inj) 1 mg STK-MED ONCE .ROUTE ; Start 10/09/16 at 04: 09; Stop 10/09/16 at 04:10; Status DC Lidocaine HCl (Xylocaine 2% Inj) 100 mg STK-MED ONCE .ROUTE ; Start 10/09/16 at 04:09; Stop 10/09/16 at 04:10; Status DC Nimodipine (Nimotop) 60 mg Q4HR PO Last administered on 10/13/16t 09:43; Start 10/13/16 at 00:00 A/P Assessment and Plan 56-year-old male who presented with intracranial bleed transfer from [facility] Respiratory failure -Extubated on 10/10 following C Pap trial. Tolerating nasal cannula. Bronchodilators as needed. -Patient is doing well. Subarachnoid/subdural bleed secondary to rupture aneurysm. - Status post successful coiling embolization and subdural hematoma evacuation - Status post Ventricular colostomy and SHRUTHI drains discontinued on 10/11. - SBP controlled with the goal less than 150. - TCD's daily - Monitor for vasospasm - Management per neurosurgery - Nimodipine for vasospasm prophylaxis - Keppra for seizure prophylaxis -Patient seems slightly more confused today so will get a CT scan of head. Otherwise there is no change in his status. -Continue with neuro exam. Hypertension -Patient on nimodipine - Hydralazine and labetalol when necessary to keep SBP less than 180 FENGI -Per speech therapist okay for soft diet and thin liquids. He should have poor dentures. Multiple loose tooth. Per patient's girlfriend will need his food pured. DVT GI prophylaxis - SCDs - Teds - No pharmacological DVT prophylaxis due to ICH. Can restart per neurosurgeon. Due to altered mental status and agitation that is interfering with patient's care will need to continue with restraints. Dealt with patient's nurse Joni. Arline Moore MD Oct 13, 2016 11:47
--- NOTE | 2016-10-13 12:04 | RADRPT ---
EXAM DATE/TIME: 10/13/2016 07:41 [place] COMPARISON: ANGIOGRAM, CEREBRAL WO ARCH, October 07, 2016, 15:46. INDICATIONS : Subarachnoid hemorrhage. MEDICAL HISTORY : Hypertension. Respirtory failure. SURGICAL HISTORY : Left craniotomy. Ventriculostomy catheter. ENCOUNTER: [facility] ACUITY: 1 week PAIN SCORE: Nonresponsive. LOCATION: cranial Current Exam: Oct 13, 2016 [place] Ratio: Right: 2.5 Left: 4.2 [place] Ratio: Right: 1.5 Left: 2.1 Previous Exam: Oct 12, 2016 [place] Ratio: Right: 2.2 Left: 2.6 [place] Ratio: Right: 1.5 Left: 1.3 FINDINGS: Examination performed at bedside. Real-time ultrasound with the assistance of color and spectral Dop pler was utilized to evaluate the intracerebral circulation. Time-averaged maximal velocities are ca lculated in cm/s. Rising flow velocities in the left middle cerebral artery likely indicative of developing vasospasm. CONCLUSION: Likely developing left MCA territory vasospasm. Yosvany Polk MD on October 13, 2016 at 11:54 Board Certified Radiologist. This report was verified electronically.
[2016-10-13] MEDS: ACETAMINOPHEN/HYDROcodone 325 MG/10 MG TAB PO PRN (13:07)
--- NOTE | 2016-10-13 17:05 | HHI.NSPN ---
Note Status Status: Progress Note Interval History Diagnosis SAH Interval History This is a 56-year-old male brought to the emergency room as an emergency transfer from another institution with history of intracranial bleed. He was transferred from [facility] and [facility]. Apparently the patient said that patient earlier this morning was coming down the stairs when he started feeling some left-sided weakness and numbness. He called 911 and by the time EMS arrived they detected severe neurological deficits and called a stroke alert. No seizure activity reported. No tongue biting. No incontinence of stool or urine. Patient was taken to [facility]. Apparently he was not able to move his right side . When patient arrived his mental status started to decline and he was intubated emergently in the ER for airway protection. A CT scan of the head showed extensive subarachnoid bleed. In addition he had a sizable subdural hematoma. He was brought emergently on the ventilator. He was on a propofol drip and well sedated. GCS was 3. He was on a Cardene drip and blood pressure was in the 120s. Neurosurgical consultation was requested 10/08. POD #1 Open eyes and follows commands 10/12. Doing very well. Neurologically stable. Patient is in restraints secondary to pulling out his Maldonado multiple times. 10/13. Much more lethargic, difficult to speak with new aphasia Labs, Micro, & Vital Signs Results Date Time Temp Pulse Resp B/P (MAP) Pulse Ox O2 Delivery O2 Flow Rate FiO2 10/13/16 12:38 98.7 68 20 143/74 (97) 97 10/13/16 08:00 98.7 61 20 150/85 (106) 98 10/13/16 04:00 98.4 70 18 162/78 (106) 98 10/13/16 02:48 99 10/13/16 00:00 98.2 67 18 126/78 (94) 98 10/12/16 20:00 97.3 92 18 122/68 (86) 95 10/14/16 07:00 Output Total 950 ml Balance -950 ml Constitutional Vital Signs Date Time Temp Pulse Resp B/P (MAP) Pulse Ox O2 Delivery O2 Flow Rate FiO2 10/13/16 12:38 98.7 68 20 143/74 (97) 97 10/13/16 08:00 98.7 61 20 150/85 (106) 98 10/13/16 04:00 98.4 70 18 162/78 (106) 98 10/13/16 02:48 99 10/13/16 00:00 98.2 67 18 126/78 (94) 98 10/12/16 20:00 97.3 92 18 122/68 (86) 95 10/14/16 07:00 Output Total 950 ml Balance -950 ml Physical Exam He is lethargic, unable top pronounce words Cranial nerve examination: pupils to be equal, round and reactive to light. Extra-ocular movements are intact. Muscle strength. DFiffuse weakness, more on right side Deep tendon reflexes are symmetrical in both upper and lower extremities. There is a bilateral plantar flexion response. Cerebellar examination is very limited Medications Current Medications Current Medications Iohexol (Omnipaque 350 Inj) 100 ml STK-MED ONCE IVCONTRAST Last administered on 10/07/16 14:21; Start 10/07/16 at 14:21; Stop 10/07/16 at 15:21; Status DC Mannitol 50 ml @ As Directed STK-MED ONCE .ROUTE ; Start 10/07/16 at 15:25; Stop 10/07/16 at 15:26; Status DC Propofol 0 ml @ As Directed STK-MED ONCE .ROUTE ; Start 10/07/16 at 15:25; Stop 10/07/16 at 15:26; Status DC Levetriacetam (Keppra Inj) 1,000 mg STK-MED ONCE IV Last administered on 18:30; Start 10/07/16 at 15:27; Stop 10/07/16 at 15:28; Status DC Mannitol (Mannitol Inj) 50 gm ONCE ONCE IV ; Start 10/07/16 at 15:30; Stop at 15:31; Status DC Nicardipine HCl 25 mg/Sodium Chloride 260 ml @ 52 mls/hr Q5H PRN IV Blood pressure management; Start 10/07/16 at 15:40 Propofol 100 ml @ 0 mls/hr Q0M PRN IV Ordered RASS Last administered on 23:01; Start 10/07/16 at 15:40; Stop 10/07/16 at 23:16; Status DC Sodium Chloride 1,000 ml @ 75 mls/hr [id number] IV ; Start 10/07/16 at 16:08; Stop 10/07/16 at 18:34; Status DC Sodium Chloride (NS Flush) 2 ml UNSCH PRN IV FLUSH FLUSH AFTER USING IV ACCESS ; Start 10/07/16 at 16:15; Stop 10/07/16 at 18:40; Status DC Sodium Chloride (NS Flush) 2 ml BID IV FLUSH ; Start 10/07/16 at 21:00; Stop at 21:00; Status DC Acetaminophen (Tylenol) 650 mg Q6H PRN PO PAIN 1-10 AND/OR FEVER >101F; Start 10/07/16 at 16:15; Stop 10/07/16 at 19:04; Status DC Albuterol/ Ipratropium (Duoneb Neb) 1 ampule Q6HR NEB NEB Last administered on 10/11/16 15:16; Start 10/07/16 at 22:00; Stop 10/11/16 at 21:59; Status DC Albuterol/ Ipratropium (Duoneb Neb) 1 ampule Q4HR NEB PRN INH SHORTNESS OF BREATH; Start 10/07/16 at 16:15 Chlorhexidine Gluconate (Peridex 0.12% Liq) 15 ml BID@08,20 MT Last administered on 10/13/16 08:00; Start 10/07/16 at 20:00 Pantoprazole Sodium (Protonix Inj) 40 mg DAILY IV ; Start 10/08/16 at 09:00; Stop 10/08/16 at 09:00; Status DC Miscellaneous Information 1 [id number] XX ; Start 10/07/16 at 16:15 Chlorhexidine Gluconate (Chlorhexidine 2% Cloth) Taper DAILY@04 TOP Last administered on 10/12/16 04:44; Start 10/08/16 at 04:00; Stop 10/04/17 at 03:59 Chlorhexidine Gluconate (Chlorhexidine 2% Cloth) 3 pack UNSCH PRN TOP HYGIENIC CARE; Start 10/07/16 at 16:15 Insulin Aspart (NovoLOG SUPPLEMENTAL SCALE) 1 Q6HR SQ ; Start 10/07/16 at 18:00 Propofol 100 ml @ 0 mls/hr Q0M PRN IV SEDATION; Start 10/07/16 at 16:08; Status UNV Nimodipine (Nimotop) 60 mg Q4HR OG-TUBE Last administered on 10/12/16 15:18; Start 10/07/16 at 20:00; Stop 10/12/16 at 23:47; Status DC Verapamil HCl (Isoptin Inj) 10 mg STK-MED ONCE .ROUTE ; Start 10/07/16 at 16:45 ; Stop 10/07/16 at 16:46; Status DC Nitroglycerin (Nitroglycerin 2% Oint) 1 inch STK-MED ONCE .ROUTE ; Start at 16:55; Stop 10/07/16 at 16:56; Status DC Heparin Sodium (Porcine) (Heparin Inj) 10,000 units STK-MED ONCE .ROUTE ; Start 10/07/16 at 16:56; Stop 10/07/16 at 16:57; Status DC Potassium Chloride/Sodium Chloride 1,000 ml @ 100 mls/hr Q10H IV Last administered on 10/13/16 10:07; Start 10/07/16 at 18:20 IV Flush (NS Flush) 2 ml UNSCH PRN IVF FLUSH AFTER USING IV ACCESS; Start 10/07 at 18:30 IV Flush (NS Flush) 2 ml BID IVF Last administered on 10/12/16 07:46; Start at 21:00 Cefazolin Sodium/ Dextrose 50 ml @ 100 mls/hr Q8H IV Last administered on 10/08 10:30; Start 10/07/16 at 19:00; Stop 10/08/16 at 11:29; Status DC Levetriacetam 500 mg/Sodium Chloride 105 ml @ 400 mls/hr Q12H IV Last administered on 10/13/16 06:46; Start 10/08/16 at 06:00 Bisacodyl (Dulcolax Supp) 10 mg DAILY PRN RECTAL CONSTIPATION; Start 10/07/16 at 18:30 Docusate Sodium (Colace) 100 mg BID PO Last administered on 10/12/16 07:46; Start 10/07/16 at 21:00 Pantoprazole Sodium (Protonix) 40 mg DAILY PO Last administered on 10/13/16 09 :44; Start 10/08/16 at 09:00 Pantoprazole Sodium (Protonix Inj) 40 mg DAILY IVP Last administered on 07:45; Start 10/08/16 at 09:00; Stop 10/12/16 at 14:30; Status DC Ondansetron HCl (Zofran Inj) 4 mg Q6H PRN IV NAUSEA OR VOMITING; Start at 18:30 Calcium Gluconate (Calcium Gluconate Inj) 1 gm UNSCH PRN IV SEE LABEL COMMENTS ; Start 10/07/16 at 18:30 Potassium Chloride 100 ml @ 50 mls/hr UNSCH PRN IV POTASSIUM LESS THAN 4 Last administered on 10/12/16 06:13; Start 10/07/16 at 18:30 Magnesium Sulfate 4 gm/Sodium Chloride 108 ml @ 108 mls/hr UNSCH PRN IV MAGNESIUM LESS THAN 2; Start 10/07/16 at 18:30 Acetaminophen/ Hydrocodone Bitart (Carmel 10-325 Mg) 1 tab Q4H PRN PO PAIN SCALE 1 TO 5 Last administered on 10/13/16 13:07; Start 10/07/16 at 18:30 Acetaminophen/ Hydrocodone Bitart (Carmel 10-325 Mg) 2 tab Q4H PRN PO PAIN SCALE 6 TO 10 Last administered on 10/09/16 10:20; Start 10/07/16 at 18:30 Morphine Sulfate (Morphine Inj) 2 mg Q2H PRN IV PUSH PAIN SCALE 1 TO 6 Last administered on 10/10/16 17:52; Start 10/07/16 at 18:30 Morphine Sulfate (Morphine Inj) 4 mg Q2H PRN IV PUSH PAIN SCALE 7 TO 10 Last administered on 10/08/16 01:55; Start 10/07/16 at 18:30 Acetaminophen (Tylenol) 650 mg Q4H PRN PO TEMPERATURE > 101.5 F Last administered on 10/12/16 18:15; Start 10/07/16 at 18:30 Iodixanol (VISIPAQUE 320 INJ (Rad Spec)) 65 ml STK-MED ONCE I-ARTERIAL Last administered on 10/07/16 18:38; Start 10/07/16 at 18:38; Stop 10/07/16 at 18:39 ; Status DC Dextrose (D50w (Vial) Inj) 50 ml UNSCH PRN IV PUSH HYPOGLYCEMIA - SEE COMMENTS ; Start 10/07/16 at 19:15 Glucagon (Glucagon Inj) 1 mg UNSCH PRN OTHER HYPOGLYCEMIA-SEE COMMENTS; Start 10/07/16 at 19:15 Midazolam HCl (Versed Inj) 4 mg STK-MED ONCE .ROUTE ; Start 10/07/16 at 19:51; Stop 10/07/16 at 19:52; Status DC Fentanyl Citrate (fentaNYL INJ) 250 mcg STK-MED ONCE .ROUTE ; Start 10/07/16 at 20:32; Stop 10/07/16 at 20:33; Status DC Propofol 100 ml @ 0 mls/hr TITRATE PRN IV Sedation Last administered on 06:51; Start 10/07/16 at 23:15 Epinephrine HCl (EPINEPHrine (1:10,000) INJ) 1 mg STK-MED ONCE .ROUTE ; Start at 04:09; Stop 10/09/16 at 04:10; Status DC Atropine Sulfate (Atropine Inj) 1 mg STK-MED ONCE .ROUTE ; Start 10/09/16 at 04: 09; Stop 10/09/16 at 04:10; Status DC Lidocaine HCl (Xylocaine 2% Inj) 100 mg STK-MED ONCE .ROUTE ; Start 10/09/16 at 04:09; Stop 10/09/16 at 04:10; Status DC Nimodipine (Nimotop) 60 mg Q4HR PO Last administered on 10/13/16 13:07; Start 10/13/16 at 00:00 Medical Decision Making MDM Remarks Last 48 hours Impressions Transcranial Doppler Study Complete 10/13/16599 Signed Impressions: Service Date/Time: September 07:41 - CONCLUSION: Likely developing left MCA territory vasospasm. Mera Polk MD Transcranial Doppler Study Complete 10/12/16599 Signed Impressions: Service Date/Time: Wednesday, October 12, 2016 07:04 - CONCLUSION: No Doppler findings to suggest significant vasospasm. Santos Crockett Jr., MD Last 48 hours Impressions Transcranial Doppler Study Complete 10/12/16599 Signed Impressions: Service Date/Time: Wednesday, October 12, 2016 07:04 - CONCLUSION: No Doppler findings to suggest significant vasospasm. Santos Crockett Jr., MD Transcranial Doppler Study Complete 10/11/16 0600 Signed Impressions: Service Date/Time: Tuesday, October 11, 2016 07:34 - CONCLUSION: Normal transcranial Doppler parameters and indices Mera Polk MD Last Impressions Chest X-Ray 10/07/16 1700 Signed Impressions: Service Date/Time: Friday, October 07, 2016 20:53 - CONCLUSION: 1. Clear lungs. 2. A properly positioned endotracheal tube. 3. Nasogastric tube tip is in the upper stomach. The side hole is above the GE junction. Mera Butler MD Neck CTA 10/07/16 0000 Signed Impressions: Service Date/Time: Friday, October 07, 2016 15:03 - CONCLUSION: 1. Mild carotid bulb atherosclerotic calcification bilaterally. However, no significant stenosis is present in either internal carotid artery. 2. Paranasal sinus mucoperiosteal thickening. 3. Please refer to brain CTA report for description of the intracranial findings. Mera Ramirez MD Head CTA 10/07/16 0000 Signed Impressions: Service Date/Time: Friday, October 07, 2016 15:03 - CONCLUSION: 1. 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 2. Large left subdural hematoma measuring 1.3 cm in depth with a significant, 1.6 cm left to right subfalcine shift. Joni Shelton MD Head CT 10/07/16 0000 Signed Impressions: Service Date/Time: Friday, October 07, 2016 15:01 - CONCLUSION: Extensive intracranial hemorrhage on the left as detailed above with midline shift of 14 mm left to right. See the CTA reported separately. Santos Crockett Jr., MD Attending Statement Continue neuro checks, follow-up TCD shows evidence of vasospasm on left MCA. Will obtain angiography with possible angioplasty with verapamil Transfer to [facility] Pulmonary. continue Aggressive pulmonary toilette, nasotracheal suction, and breathing treatments with nebulizers. daily PT and OT Oral diet Renal. Continue to monitor closely urine output, BUN and creatinine Endocrine. Continue to Monitor serial Acu checks and SSI as needed in detail ID Continue to monitor for signs of infection Continue Protonix for stress ulcer prophylaxis Continue Colt hose and SCD's for DVT prophylaxis Discussed with Dr Rees, dr Driscoll and dr mera Perry,George Chambers MD Oct 13, 2016 17:05
[2016-10-13] MEDS ORDERED: VERAPAMIL HCL 5 MG/2 ML VIAL ONE (17:10)
[2016-10-13] MEDS ORDERED: IODIXANOL 320 MG/ML 50 ML VIAL (for RAD SPEC) I-ARTERIAL ONE (17:49)
--- NOTE | 2016-10-13 18:09 | PD.RAD ---
Post Procedure Progress Note Pre Procedure Diagnosis: (1) Subarachnoid hemorrhage Post Procedure Diagnosis: (1) Subarachnoid hemorrhage Procedure Date: Oct 13, 2016 Supervising Radiologist: Harvey Morejon Proceduralist/Assist: Esther Santos, RT(R)(CV), Darline Cavazos RT(R) Anesthesia: General Plan of Activity Patient to Unit: Critical Care Patient Condition: Poor See PACS Report for procedural detail/treatment Vascular-Arterial Procedure Procedure 1 Procedure Site: Cerebral Procedure(s): Angiogram (with verapamil infusion no visible spasm in large vessels identified) Access Access Site(s): Right Femoral Artery Closure Site(s): Right manual pressure Harvey Morejon MD Oct 13, 2016 18:09
[2016-10-13] MEDS ORDERED: MIDAZOLAM HCL 2 MG/2 ML VIAL ONE (18:32)
--- NOTE | 2016-10-13 21:44 | HHI.CCPN ---
Subjective Remarks/Hospital Course 10/07: 56-year-old male presents with intracranial bleed. Patient was transferred from [facility] at [facility]. As per the paramedics and the nurse who assisted the patient said that patient earlier this morning was coming down the stairs when he started feeling some left-sided weakness and numbness. He called 911 and by the time EMS arrived they detected some deficit and called a stroke alert. Patient was taken to [facility]. When patient arrived his mental status started to decline and he was intubated emergently in the ER. A CAT scan of the head showed subarachnoid and subdural bleed. He was taking emergently to an angio suite for coiling of the aneurysm and later on to OR for subdural hematoma evacuation. 10/08: Remains sedated, orally intubated on mechanical ventilation. Arouses off sedation and following commands with both upper extremities earlier. Ventriculostomy in place. ICP 7, CPP mid 80s. 10/09: Remains sedated, orally intubated on mechanical ventilation. Arouses off sedation and follows commands with both upper extremities. Ventriculostomy in place. 10/10: Remains sedated, orally intubated on mechanical ventilation. Arouses off sedation and follows commands and both upper extremities. Ventriculostomy in place. ICP 5. Failed C Pap trial yesterday. 10/11: Extubated on 10/10, tolerating well. Awake and alert. Appears confused, moving all 4 extremities. Ventriculostomy discontinued today by neurosurgery 10/13: Patient has developed severe vasospasm at the left MCA territory on TCD's that was treated with IV route verapamil Objective Vital Signs Date Time Temp Pulse Resp B/P (MAP) Pulse Ox O2 Delivery O2 Flow Rate FiO2 10/13/16 20:00 98.6 78 22 99 152/74 (100) 10/13/16 19:20 Nasal Cannula 4 10/13/16 18:35 40 Intake and Output 10/13/16 10/13/16 10/14/16 08:00 16:00 00:00 Output Total 1650 ml Balance -1650 ml Result Diagram: 10/12/16 0442 10/12/16 1348 Imaging Last 24 hours Impressions Transcranial Doppler Study Complete 10/13/16 0600 Signed Impressions: Service Date/Time: September 07:41 - CONCLUSION: Likely developing left MCA territory vasospasm. Yosvany Polk MD Objective Remarks GENERAL: Sedated and intubated postprocedure in no acute distress. SKIN: Warm and dry. HEAD: Status post left craniectomy EYES: No scleral icterus. No injection or drainage. NECK: Supple, trachea midline. No JVD or lymphadenopathy. CARDIOVASCULAR: Regular rate and rhythm without murmurs, gallops, or rubs. RESPIRATORY: Breath sounds equal bilaterally. No accessory muscle use. GASTROINTESTINAL: Abdomen soft, non-tender, nondistended. MUSCULOSKELETAL: No cyanosis, or edema. BACK: Nontender without obvious deformity. NEURO EXAM: GCS: Sedated and intubated postprocedure. All sedation following commands in all 4 extremities Procedures 10/13 Four-vessel cerebral angiography with verapamil treatment of vasospasm A/P Assessment and Plan Respiratory failure - Intubated for IR procedure - Awake following commands while off sedation - SBT and will extubate if tolerate Subarachnoid/subdural bleed - Aneurysm coiled by IR - Alvaardo Rodriguez 5 - Carroll grade 4 - Status post successful coiling embolization 10/08 - Status post subdural hematoma evacuation 10/08 - ICPs DC'd by neurosurgery - SBP controlled with the goal less than 180 - TCD's daily - Monitor for vasospasm - Management per neurosurgery - Nimodipine for vasospasm prophylaxis - Keppra for seizure prophylaxis - 10/13 left MCA territory vasospasm, status post successful verapamil treatment by IR - Triple H therapy with SBP goal 160-180 Hypertension - Hydralazine and labetalol when necessary to keep SBP 160-180 GI/liver -Tolerating tube feeds. DVT GI prophylaxis - SCDs - Teds - No pharmacological DVT prophylaxis due to ICH -Start subcutaneous heparin if okay with neurosurgery - Pepcid Discussed with Dr. Perry from neurosurgery on 10/13. Triple H therapy with SBP goal 160-180. Continue ICU monitoring for 12 days period of vasospasm watch. Ventricular colostomy and SHRUTHI drains discontinued on 10/11. Critical Care: The total critical care time was 35 minutes. Time to perform other separately billable procedures was not included in the critical care time. Florian Driscoll MD Oct 13, 2016 9:44 pm
[2016-10-13] MEDS: SODIUM CHLOR 0.9% 1000 ML INJ 2,000 ML IV SCH (21:58)
[2016-10-13 23:37] LABS: AUTOMATED NEUTROPHIL # 6.5 TH/MM3 (1.8-7.7); BASOPHIL # 0.1 TH/MM3 (0-0.2); EOSINOPHIL % 0.4 % (0.0-4.0); HEMATOCRIT 28.3 % (39.0-51.0); HEMO FLAGS DIFF FINAL; LYMPH % 16.7 % (9.0-44.0); LYMPHOCYTE # 1.5 TH/MM3 (1.0-4.8); MEAN CELL VOLUME 96.3 FL (80.0-100.0); MEAN CORPUSCULAR HGB CONC 33.2 % (32.0-36.0); MONO % 11.7 % (0.0-8.0); NEUT % 70.2 % (16.0-70.0); PLATELET COUNT 236 TH/MM3 (150-450); RED BLOOD COUNT 2.94 MIL/MM3 (4.50-5.90); RED CELL DISTRIBUTION WIDTH 12.7 % (11.6-17.2); WHITE BLOOD COUNT 9.2 TH/MM3 (4.0-11.0)
[2016-10-14] VITALS (16 sets, daily range): BP systolic 145–207; BP diastolic 78–98; PULSE 65–102; RESP 16–24; TEMP 98.8–100.5; O2SAT 92–100
[2016-10-14] MEDS: niMODipine 30 MG CAP PO SCH ×6 (01:00→20:27)
[2016-10-14] MEDS: CHLORHEXIDINE GLUCONATE 2 % 1 PACK (2 CLOTHS) TOP SCH (04:00)
[2016-10-14 05:23] LABS: HEMATOCRIT 29.5 % (39.0-51.0); MEAN CELL VOLUME 95.5 FL (80.0-100.0); MEAN CORPUSCULAR HEMOGLOBIN 32.4 PG (27.0-34.0); MEAN CORPUSCULAR HGB CONC 33.9 % (32.0-36.0); PLATELET COUNT 231 TH/MM3 (150-450); RED BLOOD COUNT 3.09 MIL/MM3 (4.50-5.90); RED CELL DISTRIBUTION WIDTH 12.4 % (11.6-17.2); REVIEW FLAG FINAL; WHITE BLOOD COUNT 8.8 TH/MM3 (4.0-11.0)
[2016-10-14] MEDS: NS + KCL 20 MEQ INJ 1,000 ML IV SCH ×2 (05:24→07:08)
[2016-10-14] MEDS: levETIRAcetam INJ 500 MG in SODIUM CHLORIDE 0.9% INJ 100 ML IV SCH ×2 (05:25→16:41)
[2016-10-14 05:48] LABS: BICARBONATE 22.8 MEQ/L (21.0-32.0); POTASSIUM 3.6 MEQ/L (3.5-5.1)
[2016-10-14] MEDS: INSULIN ASPART SUPPLEMENTAL SCALE SQ SCH ×4 (06:00→18:00)
[2016-10-14] MEDS: CHLORHEXIDINE 0.12% (ORAL KIT) 15 ML CUP MT SCH ×2 (07:46→22:46)
[2016-10-14] MEDS: SODIUM CHLORIDE 0.9% FLUSH 5 ML FLUSH IVF SCH ×2 (07:47→21:00)
[2016-10-14] MEDS: DOCUSATE SODIUM 100 MG CAP PO SCH ×2 (07:47→21:00)
[2016-10-14] MEDS: PANTOPRAZOLE SOD 40 MG DELAYED RELEASE TAB PO SCH (07:47)
--- NOTE | 2016-10-14 09:04 | RADRPT ---
EXAM DATE/TIME: 10/14/2016 07:49 [facility] COMPARISON: US TRANSCRANIAL DOPPLER COMPLETE, October 13, 2016, 7:41. INDICATIONS : Subarachnoid hemorrhage. MEDICAL HISTORY : Subarachnoid hemorrhage. Hypertension. Respiratory failure. SURGICAL HISTORY : Left craniotomy. Ventriculostomy catheter. ENCOUNTER: Subsequent ACUITY: 1 week PAIN SCORE: Nonresponsive. LOCATION: Bilateral cranial Current Exam: Oct 14, 2016 [place] Ratio: Right: 3.1 Left: 5.3 Rodriguez Ratio: Right: 1.4 Left: 2.6 Previous Exam: Oct 13, 2016 [place] Ratio: Right: 2.5 Left: 4.2 Rodriguez Ratio: Right: 1.5 Left: 2.1 FINDINGS: Examination performed at bedside. Real-time ultrasound with the assistance of color and spectral Dop pler was utilized to evaluate the intracerebral circulation. Time-averaged maximal velocities are ca lculated in cm/s. Findings consistent with increasing vasospasm on the left. CONCLUSION: Increasing transcranial Doppler evidence for vasospasm. CTA is suggested Remington Woodward MD FACR on October 14, 2016 at 8:56 Board Certified Radiologist. This report was verified electronically.
[2016-10-14] MEDS ORDERED: PHENYLEPHRINE HCL 10 MG/ML VIAL ONE ×6 (09:10→23:31)
--- NOTE | 2016-10-14 10:09 | RADRPT ---
EXAM DATE/TIME: 10/14/2016 09:38 [facility] COMPARISON: CHEST SINGLE AP, October 10, 2016, 6:52. INDICATIONS : Central line placement. MEDICAL HISTORY : Seizures. SURGICAL HISTORY : None. ENCOUNTER: Initial ACUITY: 1 day PAIN SCORE: Non-responsive. LOCATION: Bilateral chest FINDINGS: Central line in good position. Minimal bibasilar probable changes are noted. There is no pneumothor ax. CONCLUSION: Line in good position without pneumothorax. Remington Woodward MD FACR on October 14, 2016 at 10:07 Board Certified Radiologist. This report was verified electronically.
[2016-10-14] MEDS ORDERED: VERAPAMIL HCL 5 MG/2 ML VIAL ONE (10:19)
[2016-10-14] MEDS ORDERED: MIDAZOLAM HCL 2 MG/2 ML VIAL ONE ×2 (10:32)
[2016-10-14] MEDS ORDERED: IODIXANOL 320 MG/ML 50 ML VIAL (for RAD SPEC) I-ARTERIAL ONE (11:06)
--- NOTE | 2016-10-14 11:13 | HHI.NSPN ---
Note Status Status: Progress Note Interval History Diagnosis SAH Interval History This is a 56-year-old male brought to the emergency room as an emergency transfer from another institution with history of intracranial bleed. He was transferred from [facility] and [facility]. Apparently the patient said that patient earlier this morning was coming down the stairs when he started feeling some left-sided weakness and numbness. He called 911 and by the time EMS arrived they detected severe neurological deficits and called a stroke alert. No seizure activity reported. No tongue biting. No incontinence of stool or urine. Patient was taken to [facility]. Apparently he was not able to move his right side . When patient arrived his mental status started to decline and he was intubated emergently in the ER for airway protection. A CT scan of the head showed extensive subarachnoid bleed. In addition he had a sizable subdural hematoma. He was brought emergently on the ventilator. He was on a propofol drip and well sedated. GCS was 3. He was on a Cardene drip and blood pressure was in the 120s. Neurosurgical consultation was requested 10/08. POD #1 Open eyes and follows commands 10/12. Doing very well. Neurologically stable. Patient is in restraints secondary to pulling out his Maldonado multiple times. 10/13. Much more lethargic, difficult to speak with new aphasia 10/14. Improved after angiography. Today he developed new onset of aphasia and right hemiparesis Labs, Micro, & Vital Signs Results Date Time Temp Pulse Resp B/P (MAP) Pulse Ox O2 Delivery O2 Flow Rate FiO2 10/14/16 09:10 65 145/75 10/14/16 08:15 100 Nasal Cannula 3.00 10/14/16 08:00 99.9 65 22 145/95 (112) 100 Arterial Line 10/14/16 08:00 65 10/14/16 06:00 68 10/14/16 04:00 98.9 67 24 97 158/78 (104) 10/14/16 04:00 67 10/14/16 02:00 65 10/14/16 00:00 98.8 70 20 100 168/78 (108) 10/14/16 00:00 70 10/13/16 22:00 76 10/13/16 20:00 98.6 78 22 99 152/74 (100) 10/13/16 20:00 82 10/13/16 19:20 100 Nasal Cannula 4 10/13/16 18:35 100 40 10/13/16 18:30 100.5 79 18 119/72 (88) 100 10/13/16 12:38 98.7 68 20 143/74 (97) 97 Constitutional Vital Signs Date Time Temp Pulse Resp B/P (MAP) Pulse Ox O2 Delivery O2 Flow Rate FiO2 10/14/16 09:10 65 145/75 10/14/16 08:15 100 Nasal Cannula 3.00 10/14/16 08:00 99.9 65 22 145/95 (112) 100 Arterial Line 10/14/16 08:00 65 10/14/16 06:00 68 10/14/16 04:00 98.9 67 24 97 158/78 (104) 10/14/16 04:00 67 10/14/16 02:00 65 10/14/16 00:00 98.8 70 20 100 168/78 (108) 10/14/16 00:00 70 10/13/16 22:00 76 10/13/16 20:00 98.6 78 22 99 152/74 (100) 10/13/16 20:00 82 10/13/16 19:20 100 Nasal Cannula 4 10/13/16 18:35 100 40 10/13/16 18:30 100.5 79 18 119/72 (88) 100 10/13/16 12:38 98.7 68 20 143/74 (97) 97 Physical Exam He is lethargic, status post cerebral angiography Cranial nerve examination: pupils to be equal, round and reactive to light. Extra-ocular movements are intact. Muscle strength. moves all 4 extremities and follows commands Deep tendon reflexes are symmetrical in both upper and lower extremities. There is a bilateral plantar flexion response. Cerebellar examination is very limited Medications Current Medications Current Medications Iohexol (Omnipaque 350 Inj) 100 ml STK-MED ONCE IVCONTRAST Last administered on 10/07/16t 14:21; Start 10/07/16 at 14:21; Stop 10/07/16 at 15:21; Status DC Mannitol 50 ml @ As Directed STK-MED ONCE .ROUTE ; Start 10/07/16 at 15:25; Stop 10/07/16 at 15:26; Status DC Propofol 0 ml @ As Directed STK-MED ONCE .ROUTE ; Start 10/07/16 at 15:25; Stop 10/07/16 at 15:26; Status DC Levetriacetam (Keppra Inj) 1,000 mg STK-MED ONCE IV Last administered on 18:30; Start 10/07/16 at 15:27; Stop 10/07/16 at 15:28; Status DC Mannitol (Mannitol Inj) 50 gm ONCE ONCE IV Last administered on 10/13/16 21: 00; Start 10/07/16 at 15:30; Stop 10/07/16 at 15:31; Status DC Nicardipine HCl 25 mg/Sodium Chloride 260 ml @ 52 mls/hr Q5H PRN IV Blood pressure management; Start 10/07/16 at 15:40 Propofol 100 ml @ 0 mls/hr Q0M PRN IV Ordered RASS Last administered on 23:01; Start 10/07/16 at 15:40; Stop 10/07/16 at 23:16; Status DC Sodium Chloride 1,000 ml @ 75 mls/hr [id number] IV ; Start 10/07/16 at 16:08; Stop 10/07/16 at 18:34; Status DC Sodium Chloride (NS Flush) 2 ml UNSCH PRN IV FLUSH FLUSH AFTER USING IV ACCESS ; Start 10/07/16 at 16:15; Stop 10/07/16 at 18:40; Status DC Sodium Chloride (NS Flush) 2 ml BID IV FLUSH ; Start 10/07/16 at 21:00; Stop at 21:00; Status DC Acetaminophen (Tylenol) 650 mg Q6H PRN PO PAIN 1-10 AND/OR FEVER >101F; Start 10/07/16 at 16:15; Stop 10/07/16 at 19:04; Status DC Albuterol/ Ipratropium (Duoneb Neb) 1 ampule Q6HR NEB NEB Last administered on 10/11/16 15:16; Start 10/07/16 at 22:00; Stop 10/11/16 at 21:59; Status DC Albuterol/ Ipratropium (Duoneb Neb) 1 ampule Q4HR NEB PRN INH SHORTNESS OF BREATH; Start 10/07/16 at 16:15 Chlorhexidine Gluconate (Peridex 0.12% Liq) 15 ml BID@08,20 MT Last administered on 10/13/16 08:00; Start 10/07/16 at 20:00 Pantoprazole Sodium (Protonix Inj) 40 mg DAILY IV ; Start 10/08/16 at 09:00; Stop 10/08/16 at 09:00; Status DC Miscellaneous Information 1 [id number] XX ; Start 10/07/16 at 16:15 Chlorhexidine Gluconate (Chlorhexidine 2% Cloth) Taper DAILY@04 TOP Last administered on 10/12/16 04:44; Start 10/08/16 at 04:00; Stop 10/04/17 at 03:59 Chlorhexidine Gluconate (Chlorhexidine 2% Cloth) 3 pack UNSCH PRN TOP HYGIENIC CARE; Start 10/07/16 at 16:15 Insulin Aspart (NovoLOG SUPPLEMENTAL SCALE) 1 Q6HR SQ ; Start 10/07/16 at 18:00 Propofol 100 ml @ 0 mls/hr Q0M PRN IV SEDATION; Start 10/07/16 at 16:08; Status UNV Nimodipine (Nimotop) 60 mg Q4HR OG-TUBE Last administered on 10/12/16 15:18; Start 10/07/16 at 20:00; Stop 10/12/16 at 23:47; Status DC Verapamil HCl (Isoptin Inj) 10 mg STK-MED ONCE .ROUTE ; Start 10/07/16 at 16:45 ; Stop 10/07/16 at 16:46; Status DC Nitroglycerin (Nitroglycerin 2% Oint) 1 inch STK-MED ONCE .ROUTE ; Start at 16:55; Stop 10/07/16 at 16:56; Status DC Heparin Sodium (Porcine) (Heparin Inj) 10,000 units STK-MED ONCE .ROUTE ; Start 10/07/16 at 16:56; Stop 10/07/16 at 16:57; Status DC Potassium Chloride/Sodium Chloride 1,000 ml @ 100 mls/hr Q10H IV Last administered on 10/14/16 07:08; Start 10/07/16 at 18:20 IV Flush (NS Flush) 2 ml UNSCH PRN IVF FLUSH AFTER USING IV ACCESS; Start 10/07 at 18:30 IV Flush (NS Flush) 2 ml BID IVF Last administered on 10/14/16 07:47; Start at 21:00 Cefazolin Sodium/ Dextrose 50 ml @ 100 mls/hr Q8H IV Last administered on 10/08 10:30; Start 10/07/16 at 19:00; Stop 10/08/16 at 11:29; Status DC Levetriacetam 500 mg/Sodium Chloride 105 ml @ 400 mls/hr Q12H IV Last administered on 10/14/16 05:25; Start 10/08/16 at 06:00 Bisacodyl (Dulcolax Supp) 10 mg DAILY PRN RECTAL CONSTIPATION; Start 10/07/16 at 18:30 Docusate Sodium (Colace) 100 mg BID PO Last administered on 10/14/16 07:47; Start 10/07/16 at 21:00 Pantoprazole Sodium (Protonix) 40 mg DAILY PO Last administered on 10/14/16 07: 47; Start 10/08/16 at 09:00 Pantoprazole Sodium (Protonix Inj) 40 mg DAILY IVP Last administered on 07:45; Start 10/08/16 at 09:00; Stop 10/12/16 at 14:30; Status DC Ondansetron HCl (Zofran Inj) 4 mg Q6H PRN IV NAUSEA OR VOMITING; Start at 18:30 Calcium Gluconate (Calcium Gluconate Inj) 1 gm UNSCH PRN IV SEE LABEL COMMENTS ; Start 10/07/16 at 18:30 Potassium Chloride 100 ml @ 50 mls/hr UNSCH PRN IV POTASSIUM LESS THAN 4 Last administered on 10/12/16 06:13; Start 10/07/16 at 18:30 Magnesium Sulfate 4 gm/Sodium Chloride 108 ml @ 108 mls/hr UNSCH PRN IV MAGNESIUM LESS THAN 2; Start 10/07/16 at 18:30 Acetaminophen/ Hydrocodone Bitart ([place] 10-325 Mg) 1 tab Q4H PRN PO PAIN SCALE 1 TO 5 Last administered on 10/13/16 13:07; Start 10/07/16 at 18:30 Acetaminophen/ Hydrocodone Bitart ([place] 10-325 Mg) 2 tab Q4H PRN PO PAIN SCALE 6 TO 10 Last administered on 10/09/16 10:20; Start 10/07/16 at 18:30 Morphine Sulfate (Morphine Inj) 2 mg Q2H PRN IV PUSH PAIN SCALE 1 TO 6 Last administered on 10/10/16 17:52; Start 10/07/16 at 18:30 Morphine Sulfate (Morphine Inj) 4 mg Q2H PRN IV PUSH PAIN SCALE 7 TO 10 Last administered on 10/08/16 01:55; Start 10/07/16 at 18:30 Acetaminophen (Tylenol) 650 mg Q4H PRN PO TEMPERATURE > 101.5 F Last administered on 10/12/16 18:15; Start 10/07/16 at 18:30 Iodixanol (VISIPAQUE 320 INJ (Rad Spec)) 65 ml STK-MED ONCE I-ARTERIAL Last administered on 10/07/16 18:38; Start 10/07/16 at 18:38; Stop 10/07/16 at 18:39 ; Status DC Dextrose (D50w (Vial) Inj) 50 ml UNSCH PRN IV PUSH HYPOGLYCEMIA - SEE COMMENTS ; Start 10/07/16 at 19:15 Glucagon (Glucagon Inj) 1 mg UNSCH PRN OTHER HYPOGLYCEMIA-SEE COMMENTS; Start 10/07/16 at 19:15 Midazolam HCl (Versed Inj) 4 mg STK-MED ONCE .ROUTE ; Start 10/07/16 at 19:51; Stop 10/07/16 at 19:52; Status DC Fentanyl Citrate (fentaNYL INJ) 250 mcg STK-MED ONCE .ROUTE ; Start 10/07/16 at 20:32; Stop 10/07/16 at 20:33; Status DC Propofol 100 ml @ 0 mls/hr TITRATE PRN IV Sedation Last administered on 06:51; Start 10/07/16 at 23:15 Epinephrine HCl (EPINEPHrine (1:10,000) INJ) 1 mg STK-MED ONCE .ROUTE ; Start at 04:09; Stop 10/09/16 at 04:10; Status DC Atropine Sulfate (Atropine Inj) 1 mg STK-MED ONCE .ROUTE ; Start 10/09/16 at 04: 09; Stop 10/09/16 at 04:10; Status DC Lidocaine HCl (Xylocaine 2% Inj) 100 mg STK-MED ONCE .ROUTE ; Start 10/09/16 at 04:09; Stop 10/09/16 at 04:10; Status DC Nimodipine (Nimotop) 60 mg Q4HR PO Last administered on 10/14/16 07:47; Start 10/13/16 at 00:00 Verapamil HCl (Isoptin Inj) 20 mg STK-MED ONCE .ROUTE Last administered on 10/13 17:10; Start 10/13/16 at 17:10; Stop 10/13/16 at 17:11; Status DC Iodixanol (VISIPAQUE 320 INJ (Rad Spec)) 45 ml STK-MED ONCE I-ARTERIAL Last administered on 10/13/16 17:40; Start 10/13/16 at 17:49; Stop 10/13/16 at 17:50 ; Status DC Midazolam HCl (Versed Inj) 2 mg STK-MED ONCE .ROUTE ; Start 10/13/16 at 18:32; Stop 10/13/16 at 18:33; Status DC Fentanyl Citrate (fentaNYL INJ) 200 mcg STK-MED ONCE .ROUTE ; Start 10/13/16 at 18:32; Stop 10/13/16 at 18:33; Status DC Sodium Chloride 2,000 ml @ 0 mls/hr Q0M IV Last administered on 10/13/16 21: 58; Start 10/13/16 at 21:45; Stop 10/14/16 at 23:59 Phenylephrine HCl (Neosynephrine Inj) 10 mg STK-MED ONCE .ROUTE Last administered on 10/14/16 09:10; Start 10/14/16 at 09:10; Stop 10/14/16 at 09:11; Status DC Verapamil HCl (Isoptin Inj) 20 mg STK-MED ONCE .ROUTE Last administered on 10:19; Start 10/14/16 at 10:19; Stop 10/14/16 at 10:20; Status DC Fentanyl Citrate (fentaNYL INJ) 100 mcg STK-MED ONCE .ROUTE Last administered on 10/14/16 10:32; Start 10/14/16 at 10:32; Stop 10/14/16 at 10:33; Status DC Midazolam HCl (Versed Inj) 2 mg STK-MED ONCE .ROUTE Last administered on 10:32; Start 10/14/16 at 10:32; Stop 10/14/16 at 10:33; Status DC Midazolam HCl (Versed Inj) 2 mg STK-MED ONCE .ROUTE ; Start 10/14/16 at 10:32; Stop 10/14/16 at 10:33; Status DC Vasopressin 40 units/Dextrose 100 ml @ 4.5 mls/hr [id number] IV Last administered on 10/14/16 11:34; Start 10/14/16 at 11:30 Albumin Human (Albumin 5% Inj) 25 gm ONCE ONCE IV Last administered on 11:34; Start 10/14/16 at 11:15; Stop 10/14/16 at 11:17; Status DC Iodixanol (VISIPAQUE 320 INJ (Rad Spec)) 10 ml STK-MED ONCE I-ARTERIAL Last administered on 10/14/16 11:06; Start 10/14/16 at 11:06; Stop 10/14/16 at 11:07; Status DC Fludrocortisone Acetate (Florinef) 0.1 mg BID PO ; Start 10/14/16 at 11:45; Status UNV Phenylephrine HCl (Neosynephrine Inj) 10 mg STK-MED ONCE .ROUTE ; Start 10/14/16 at 12:18; Stop 10/14/16 at 12:19; Status DC Medical Decision Making MDM Remarks Last 48 hours Impressions Transcranial Doppler Study Complete 10/14/16 0600 Signed Impressions: Service Date/Time: Friday, October 14, 2016 07:49 - CONCLUSION: Increasing transcranial Doppler evidence for vasospasm. CTA is suggested Remington Woodward MD FACR Chest X-Ray 10/14/16 0000 Signed Impressions: Service Date/Time: Friday, October 14, 2016 09:38 - CONCLUSION: Line in good position without pneumothorax. Remington Woodward MD FACR Transcranial Doppler Study Complete 10/13/16 0600 Signed Impressions: Service Date/Time: September 07:41 - CONCLUSION: Likely developing left MCA territory vasospasm. Yosvany Polk MD Last 48 hours Impressions Transcranial Doppler Study Complete 10/13/16599 Signed Impressions: Service Date/Time: September 07:41 - CONCLUSION: Likely developing left MCA territory vasospasm. Yosvany Polk MD Transcranial Doppler Study Complete 10/12/16599 Signed Impressions: Service Date/Time: Wednesday, October 12, 2016 07:04 - CONCLUSION: No Doppler findings to suggest significant vasospasm. Santos Crockett Jr., MD Last 48 hours Impressions Transcranial Doppler Study Complete 10/12/16599 Signed Impressions: Service Date/Time: Wednesday, October 12, 2016 07:04 - CONCLUSION: No Doppler findings to suggest significant vasospasm. Santos Crockett Jr., MD Transcranial Doppler Study Complete 10/11/16599 Signed Impressions: Service Date/Time: Tuesday, October 11, 2016 07:34 - CONCLUSION: Normal transcranial Doppler parameters and indices Yosvany Polk MD Last Impressions Chest X-Ray 10/07/16 1700 Signed Impressions: Service Date/Time: Friday, October 07, 2016 20:53 - CONCLUSION: 1. Clear lungs. 2. A properly positioned endotracheal tube. 3. Nasogastric tube tip is in the upper stomach. The side hole is above the GE junction. Yosvany Butler MD Neck CTA 10/07/16 Signed Impressions: Service Date/Time: Friday, October 07, 2016 15:03 - CONCLUSION: 1. Mild carotid bulb atherosclerotic calcification bilaterally. However, no significant stenosis is present in either internal carotid artery. 2. Paranasal sinus mucoperiosteal thickening. 3. Please refer to brain CTA report for description of the intracranial findings. Yosvany Ramirez MD Head CTA 10/07/16 Signed Impressions: Service Date/Time: Friday, October 07, 2016 15:03 - CONCLUSION: 1. 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 2. Large left subdural hematoma measuring 1.3 cm in depth with a significant, 1.6 cm left to right subfalcine shift. Joni Shelton MD Head CT 10/07/16 Signed Impressions: Service Date/Time: Friday, October 07, 2016 15:01 - CONCLUSION: Extensive intracranial hemorrhage on the left as detailed above with midline shift of 14 mm left to right. See the CTA reported separately. Santos Crockett Jr., MD Attending Statement Continue neuro checks, follow-up TCD showed further evidence of vasospasm. Clinically deteriorated. Will obtain further angiography with verapamil [facility]. Keep SBP around 200 Pulmonary. continue Aggressive pulmonary toilette, nasotracheal suction, and breathing treatments with nebulizers. daily PT and OT Oral diet Renal. Continue to monitor closely urine output, BUN and creatinine Endocrine. Continue to Monitor serial Acu checks and SSI as needed in detail ID Continue to monitor for signs of infection Continue Protonix for stress ulcer prophylaxis Continue Colt hose and SCD's for DVT prophylaxis Discussed with Dr Laurie Perry,George Chambers MD Oct 14, 2016 11:13
[2016-10-14] MEDS ORDERED: ALBUMIN HUMAN 5% 25 GM/500 ML BOTTLE IV ONE (11:15)
[2016-10-14] MEDS: VASOPRESSIN INJ 40 UNITS in DEXTROSE 5% IN WATER 100ML INJ 98 ML IV SCH ×8 (11:34→20:20)
--- NOTE | 2016-10-14 11:38 | HHI.CCPN ---
Subjective Remarks/Hospital Course 10/07: 56-year-old male presents with intracranial bleed. Patient was transferred from [facility] at [facility]. As per the paramedics and the nurse who assisted the patient said that patient earlier this morning was coming down the stairs when he started feeling some left-sided weakness and numbness. He called 911 and by the time EMS arrived they detected some deficit and called a stroke alert. Patient was taken to [facility]. When patient arrived his mental status started to decline and he was intubated emergently in the ER. A CAT scan of the head showed subarachnoid and subdural bleed. He was taking emergently to an angio suite for coiling of the aneurysm and later on to OR for subdural hematoma evacuation. 10/08: Remains sedated, orally intubated on mechanical ventilation. Arouses off sedation and following commands with both upper extremities earlier. Ventriculostomy in place. ICP 7, CPP mid 80s. 10/09: Remains sedated, orally intubated on mechanical ventilation. Arouses off sedation and follows commands with both upper extremities. Ventriculostomy in place. 10/10: Remains sedated, orally intubated on mechanical ventilation. Arouses off sedation and follows commands and both upper extremities. Ventriculostomy in place. ICP 5. Failed C Pap trial yesterday. 10/11: Extubated on 10/10, tolerating well. Awake and alert. Appears confused, moving all 4 extremities. Ventriculostomy discontinued today by neurosurgery 10/13: Patient has developed severe vasospasm at the left MCA territory on TCD's that was treated with IV route verapamil 10/14: patient extubated overnight. was originally following commands and neuro intact. TCDs this morning with increase LIs over yesterday, particularly Left MCA territory. On my evaluation early this morning, patient was aphasic, not moving the right side of his body, not following commands. SBP 140s at that time. net 2L negative/24h and uop almost 1L/hr at the time. I immediately bolused with 2L NS iv, placed arterial and central lines, started phenylephrine , increased SBP to goal 200 - 220 mmHg. called interventional neuroradiology and accompanied patient down personally to IR for IA verapamil again. I remained with the patient managing his hemodynamics down in IR and providing anxiolysis IV. I accompanied patient back up to [facility] where patient again was neuro intact and following commands. Sodium downtrending to 135 and urine studies and serum osms suggestive of urine sodium losses and high uop. added Florinef to mitigate sodium losses, and increased mivf to 500cc/hr to maintain euvolemia. later in the day patient decompensated requiring intubation for hyoxemia, cxr suggestive of pulmonary edema. 2d echo with evidence of EF 40%, septal hypokinesis, moderate MR. On levo, vaso, phenylephrine. difficult to get to goal SBP 200 mmHg, likely due to myocardial dysfunction. decreased goal to 180 - 200 mmHg to balance cardiac vs. neurologic goals. Objective Vital Signs Date Time Temp Pulse Resp B/P (MAP) Pulse Ox O2 Delivery O2 Flow Rate FiO2 10/14/16 11:34 71 207/84 10/14/16 08:15 100 Nasal Cannula 3.00 10/14/16 08:00 99.9 22 10/13/16 18:35 40 Intake and Output 10/14/16 10/14/16 10/15/16 08:00 16:00 00:00 Intake Total 2850 ml Output Total 3250 ml Balance -400 ml Result Diagram: 10/14/16 0455 10/14/16 1000 Imaging Last 24 hours Impressions Transcranial Doppler Study Complete 10/13/16 0600 Signed Impressions: Service Date/Time: September 07:41 - CONCLUSION: Likely developing left MCA territory vasospasm. Yosvany Polk MD Objective Remarks initial evaluation: GENERAL: middle-aged male, sitting in bed, in distress. SKIN: Warm and dry. HEAD: Status post left craniectomy EYES: No scleral icterus. No injection or drainage. NECK: Supple, trachea midline. CARDIOVASCULAR: Regular rate and rhythm. RESPIRATORY: Breath sounds equal bilaterally. No accessory muscle use. GASTROINTESTINAL: Abdomen soft, non-tender, nondistended. MUSCULOSKELETAL: No cyanosis, or edema. NEURO EXAM: ÁNGEL 2/5 right upper and lower extremities. 5/5 on left. noticeable facial droop on right. intermittent expressive aphasia. Procedures 10/13 Four-vessel cerebral angiography with verapamil treatment of vasospasm A/P Assessment and Plan Assessment: 56yM aneurysmal subarachnoid hemorrhage now with severe left MCA vasospasm. critically ill. will maintain euvolemia aggressively and press up to 180-220. would ideally like to press higher but cardiac dysfunction may prevent that. Acute hypoxic Respiratory failure - pulmonary edema, may be non-cardiogenic/neurogenic from SAH/vasospasm. cannot diurese due to active cerebral vasospasm. - will not extubate given hypoxemia. Subarachnoid/subdural bleed - Aneurysm coiled by IR - Alvarado Rodriguez 5 - Carroll grade 4 - Status post successful coiling embolization 10/08 - Status post subdural hematoma evacuation 10/08 - TCD's daily - Nimodipine for vasospasm prophylaxis - Keppra for seizure prophylaxis - 10/13 left MCA territory vasospasm, status post successful verapamil treatment by IR - SBP goal 180 - 220 mmHg - Greyson/Levo/Vaso - goal euvolemia - mivf @ 500 cc/hr - q1h uop - florinef 0.1mg po bid GI/liver -Tolerating tube feeds. DVT GI prophylaxis - SCDs - Teds - start SQH. - Pepcid Critical Care: The total critical care time was 137 minutes. Time to perform other separately billable procedures was not included in the critical care time. This included the time that I spent in active management of his cerebral ischemia and vasospasm, including active hemodynamic management in the ICU, down in interventional radiology, and back in the ICU. Walter Sullivan MD Oct 14, 2016 11:38 Harvey Bar MD Oct 14, 2016 14:10
--- NOTE | 2016-10-14 12:18 | RADRPT ---
EXAM DATE/TIME: 10/13/2016 16:56 [facility] COMPARISON: ANGIOGRAM, CEREBRAL WO ARCH, October 07, 2016, 15:46. INDICATIONS : Patient with subarachnoid hemorrhage in need of cerebral angiogram. MEDICAL HISTORY : HTN , intercranial bleed. SURGICAL HISTORY : Cerebral coiling ENCOUNTER: Subsequent ACUITY: 4-6 days PAIN SCORE: Nonresponsive. FLUORO TIME: 6.4 minutes IMAGE SERIES: 5 ACCESS SITE: Right Femoral artery CONTRAST: 45 cc Visipaque (iodixanol) MEDICATION(S): 1.) 20 mg Verapamil IART PROCEDURE : 1. Ultrasound-guided puncture of the access site. 2. Conscious sedation with continuous EKG and Oximetry monitoring. 3. Angiography of the left internal carotid artery 4. Angiography of the right internal carotid artery 5. Angiography of the left vertebral artery 6. Infusion for spasmolysis x2 The risks, benefits and alternatives to the procedure were explained and verbal and written consent w as obtained. The site was prepped in sterile fashion. Full sterile technique was used, including ca p, mask, sterile gloves and gown and a large sterile sheet. Hand hygiene and 2% chlorhexidine and/or betadine/alcohol prep was utilized per protocol for cutaneous antisepsis. Sterile gel and sterile p robe cover were utilized for ultrasound guidance. The skin and subcutaneous tissues were infiltrated with local anesthetic solution. With ultrasound and fluoroscopic guidance the selected artery was punctured and a vascular sheath was placed A REZA 2 catheter was placed in the left internal carotid artery and AP, lateral oblique angiography wa s performed. This demonstrates normal cerebral circulation time without evidence of proximal spasm. T here is continued minimal filling of the base of the aneurysm the dome is protected. 10 mg of intra-a rterial verapamil was infused without difficulty and no decrease in blood pressure. The catheter was next placed in the right internal carotid artery where again AP lateral and oblique angiography was performed demonstrating normal cerebral circulation time. 10 mg verapamil placed in t he right internal carotid artery as well without complication. The catheter was next laced in the left vertebral artery where AP lateral is performed demonstrating normal cerebral circulation time. No effusion was performed. The puncture site was closed with manual pressure and hemostasis was obtained. The patient tolerated the procedure well and there were no complications. Conscious sedation was performed with the prescribed dosages and duration as above in the presence of an independent trained radiology nurse to assist in the monitoring of the patient. EKG and oximetry remained stable throughout the procedure. CONCLUSION: 1. Uncomplicated thrombolysis of the anterior circulation as above Harvey Morejon MD on October 14, 2016 at 12:13 Board Certified Radiologist. This report was verified electronically.
--- NOTE | 2016-10-14 12:27 | RADRPT ---
EXAM DATE/TIME: 10/14/2016 10:21 [facility] COMPARISON: No previous studies available for comparison. INDICATIONS : Patient with history of anuerysm coiling of the brain.Vasospasm. MEDICAL HISTORY : 1.HTN 2. Intercranial bleed SURGICAL HISTORY : 1. cerebral coiling 2. craniotomey 3. drain ENCOUNTER: Subsequent ACUITY: 1 day PAIN SCORE: 0/10 FLUORO TIME: 1.6 minutes IMAGE SERIES: 2 ACCESS SITE: Right Femoral artery SEDATION TIME: 15 minutes CONTRAST: 10 cc Visipaque (iodixanol) MEDICATION(S): 1.) 1.5 mg midazolam (Versed) IV 2.) 25 mcg fentanyl (Sublimaze) IV 3.) 20 mg Verapamil IV PROCEDURE : 1. Ultrasound-guided puncture of the access site. 2. Conscious sedation with continuous EKG and Oximetry monitoring. 3. Angiography of the left internal carotid artery 4. infusion for spasmolysis x1 The risks, benefits and alternatives to the procedure were explained and verbal and written consent w as obtained. The site was prepped in sterile fashion. Full sterile technique was used, including ca p, mask, sterile gloves and gown and a large sterile sheet. Hand hygiene and 2% chlorhexidine and/or betadine/alcohol prep was utilized per protocol for cutaneous antisepsis. Sterile gel and sterile p robe cover were utilized for ultrasound guidance. The skin and subcutaneous tissues were infiltrated with local anesthetic solution. With ultrasound and fluoroscopic guidance the selected artery was punctured and a vascular sheath was placed A REZA 2 catheter was placed into the left internal carotid artery and oblique views demonstrate normal rugal circulation time. Considering the patient's declining clinical course 20 mg of parenchymal wer e placed into the internal carotid artery. Culture cholangiography demonstrates no change in appearan ce. The puncture site was closed with manual pressure and hemostasis was obtained. The patient tolerated the procedure well and there were no complications. Conscious sedation was performed with the prescribed dosages and duration as above in the presence of an independent trained radiology nurse to assist in the monitoring of the patient. EKG and oximetry remained stable throughout the procedure. CONCLUSION: 1. Uncomplicated infusion for spasmolysis Harvey Morejon MD on October 14, 2016 at 12:17 Board Certified Radiologist. This report was verified electronically.
[2016-10-14] MEDS: FLUDROCORTISONE ACETATE 0.1 MG TAB PO SCH ×2 (12:53→22:45)
[2016-10-14] MEDS ORDERED: NOREPINEPHRINE-DEXTROSE DRIP 250 ML IV ONE (13:14)
[2016-10-14] MEDS ORDERED: NOREPINEPHRINE 4 MG/4 ML AMP ONE (13:15)
[2016-10-14] MEDS ORDERED: ETOMIDATE 20 MG/10 ML VIAL ONE (13:44)
[2016-10-14] MEDS ORDERED: MIDAZOLAM HCL 5 MG/ML VIAL (1 ML) ONE (13:44)
[2016-10-14] MEDS ORDERED: ROCURONIUM INJ 50 MG/5 ML VIAL ONE ×2 (13:45→14:43)
[2016-10-14] MEDS: PROPOFOL 1000 MG/100 ML IV PRN ×3 (14:00→20:29)
--- NOTE | 2016-10-14 14:03 | PD.PROCEDR ---
Procedure Note Procedure After the risks and benefits were discussed the following procedure was performed: INTUBATION: The patient was put in optimal position for the procedure. Rapid sequence intubation was initiated by me using 20 milligrams of etomidate IV, versed 5 mg IV and 50 milligrams of rocuronium IV. DL with Mac 4 blade Grade 1 view. The patient was intubated with a 8.0 cuffed endotracheal tube. Tube placement was confirmed by visualization of the tube and balloon passing through the cords, capnometry and subsequent chest x-ray. Breath sounds were equal and well aerated bilaterally postintubation. No breath sounds over stomach. Patient tolerated procedure well. Harvey Bar MD Oct 14, 2016 14:03
[2016-10-14] MEDS: fentaNYL DRIP 250 ML IV PRN (14:38)
[2016-10-14] MEDS ORDERED: TERBUTALINE INJ 1 MG/ML AMP SQ PRN ×2 (14:45→18:15)
--- NOTE | 2016-10-14 15:16 | RADRPT ---
EXAM DATE/TIME: 10/14/2016 13:58 [facility] COMPARISON: CHEST SINGLE AP, October 14, 2016, 9:38. INDICATIONS : Intubation. MEDICAL HISTORY : Seizures. SURGICAL HISTORY : None. ENCOUNTER: Initial ACUITY: 1 day PAIN SCORE: Non-responsive. LOCATION: Bilateral chest FINDINGS: 2 portable frontal views of the chest shows diffuse infiltrates involving the lungs. These are mixed interstitial and intra-alveolar. These are new from the prior exam. Small effusions are new. Heart is normal in size. Right-sided central line. No pneumothorax. CONCLUSION: New diffuse bilateral pulmonary infiltrates and tiny effusions. Santos Crockett Jr., MD on October 14, 2016 at 15:13 Board Certified Radiologist. This report was verified electronically.
[2016-10-14] MEDS: RESP: ALBUTEROL 2.5 MG/IPRATROPIUM 0.5 MG NEB (PRN) INH ×2 (15:18→19:33)
[2016-10-14] MEDS: MIDAZOLAM 100 MG/100 ML INJ 100 ML IV PRN (15:19)
--- NOTE | 2016-10-14 15:57 | ECHRPT ---
Indication: heart failure CONCLUSIONS Normal left ventricular size. Wall thickness is normal. The left ventricular systolic function is moderately reduced with an estimated ejection fraction in the range of 40-45%. There is septal thinning and hypokinesis, suggestive of prior NH. Moderate mitral valve regurgitation. There is mild tricuspid valve regurgitation. There is estimated jqhwvmeo-sq-gkxolv pulmonary hypertension present (61mmHg). The pulmonary valve is not well visualized. BP: / HR: Rhythm: Sinus MEASUREMENTS (Male / Female) Normal Values Technical Quality:Good 2D ECHO LV Diastolic Diameter PLAX 5.3 cm 4.2 - 5.9 / 3.9 - 5.3 cm LV Systolic Diameter PLAX 4.9 cm IVS Diastolic Thickness 0.9 cm 0.6 - 1.0 / 0.6 - 0.9 cm LVPW Diastolic Thickness 0.9 cm 0.6 - 1.0 / 0.6 - 0.9 cm LV Relative Wall Thickness 0.3 RV Internal Dim ED PLAX 2.2 cm LA Systolic Diameter LX 3.8 cm 3.0 - 4.0 / 2.7 - 3.8 cm DOPPLER Mitral E Point Velocity 100.0 cm/s Mitral A Point Velocity 47.5 cm/s Mitral E to A Ratio 2.1 TR Peak Velocity 375.0 cm/s TR Peak Gradient 56.3 mmHg FINDINGS LEFT VENTRICLE Normal left ventricular size. Wall thickness is normal. The left ventricular systolic function is moderately reduced with an estimated ejection fraction in the range of 40-45%. There is septal thinning and hypokinesis, suggestive of prior NH. RIGHT VENTRICLE Normal right ventricular size and systolic function. LEFT ATRIUM The left atrial size is normal. RIGHT ATRIUM The right atrial size is normal. ATRIAL SEPTUM Normal atrial septal thickness without atrial level shunting by limited color doppler interrogation. AORTA The aortic root and proximal ascending aorta are normal in size on limited imaging. MITRAL VALVE Moderate mitral valve regurgitation. AORTIC VALVE Trileaflet aortic valve. No aortic valve stenosis or regurgitation. TRICUSPID VALVE There is mild tricuspid valve regurgitation. There is estimated btypeipc-vk-xmearw pulmonary hypertension present (61mmHg). PULMONARY VALVE The pulmonary valve is not well visualized. VESSELS The inferior vena cava is normal in size. PERICARDIUM No pericardial effusion. Jocelyn Henderson MD, FACC (Electronically Signed) Final Date:14 October 2016 15:56
[2016-10-14 17:05] LABS: BLOOD GAS BASE EXCESS -6.2 mmol/L (-2-2); BLOOD GAS CARBOXYHEMOGLOBIN 0.9 % (0-4); BLOOD GAS HCO3 18 mmol/L (22-26); BLOOD GAS METHEMOGLOBIN 0.6 % (0-2); BLOOD GAS O2 HGB SATURATION 98 % (90-100); BLOOD GAS OXYGEN CONTENT 17.9 Vol % (12.0-20.0); BLOOD GAS PCO2 30 mmHg (38-42); BLOOD GAS PO2 160 mmHg (61-120); BLOOD GAS TOTAL HGB 12.9 G/DL (12.0-16.0); TEMP CORR TO 98.6
[2016-10-14 17:06] LABS: CRITICAL VALUE NO; OXYGEN DEVICE VENTILATOR
[2016-10-14 17:07] LABS: DRAW SITE ART LINE; FIO2 80 %; STAT NO; ULNAR PULSE PRESENT
--- NOTE | 2016-10-14 19:08 | PD.PROCEDR ---
Procedure Note Procedure Procedure: Arterial Line Placement Right radial arterial line Diagnosis: Cerebral vasospasm Indications: Need for beat to beat hemodynamic monitoring Consent: Emergent Description of the Procedure: The right wrist was prepped and draped sterilely. 1% lidocaine was used for local anesthesia. The pulse was located and a needle was advanced into the artery. A 20 gauge, 12 cm catheter was advanced into the artery using a modified Seldinger technique. The catheter was sutured to the skin and a sterile dressing was applied. The catheter was connected to a pressure transducer and an arterial waveform was noted. There were no immediate complications noted. There was minimal EBL. I personally performed the procedure. Walter Sullivan MD Oct 14, 2016 19:08
--- NOTE | 2016-10-14 19:10 | PD.PROCEDR ---
Procedure Note Procedure Central Line Procedure Note Right subclavian triple lumen catheter Diagnosis: Cerebral vasospasm Indications: Need for highly potent vasoactive substances Consent: Emergent Anesthesia: 1% lidocaine locally Description of the Procedure: The patient was placed in the supine, mild- Trendelenburg position. The area was prepped and draped sterilely. A 19g needle was inserted under negative pressure aspiration and dark venous blood was obtained. A guidewire was inserted easily without resistance. A small incision was made using a #11 blade. Using a modified Seldinger technique, the dilator and 7 Cymraes 20 cm catheter were advanced over the guidewire without resistance. All ports were aspirated and flushed, and had brisk blood return. The line was secured at 18cm at the skin using 2-0 silk interrupted sutures. A Biopatch and Transparent sterile dressing were applied. There were no immediate complications noted. There was minimal EBL. The patient tolerated the procedure well. Ultrasound guidance was not used for this procedure A Chest x-ray has been ordered. I personally performed the procedure. Walter Sullivan MD Oct 14, 2016 19:10
[2016-10-14] MEDS: PHENYLEPHRINE INJ 40 MG in DEXTROSE 5% IN WATE 500 ML INJ 496 ML IV PRN ×4 (20:19→23:40)
[2016-10-14] MEDS: SODIUM CHLOR 0.9% 1000 ML INJ 2,000 ML IV SCH (20:20)
[2016-10-14] MEDS: NOREPINEPHRINE INJ 4 MG in SODIUM CHLOR 0.9% 250 ML INJ 246 ML IV PRN (20:29)
[2016-10-14] MEDS ORDERED: ISOPROTERENOL INJ 2 MG in DEXTROSE 5% IN WATER INJ 250 ML IV PRN ×2 (21:00)
[2016-10-14] MEDS: SODIUM CHLOR 0.9% 1000 ML INJ 1,000 ML IV SCH ×2 (21:58→23:00)
[2016-10-14] MEDS: HEPARIN SODIUM - SQ 10,000 UNITS/ML VIAL SQ SCH (22:45)
[2016-10-15] VITALS (20 sets, daily range): BP systolic 145–188; BP diastolic 96–122; PULSE 104–129; RESP 16–35; TEMP 98–101.3; O2SAT 90–100
[2016-10-15] MEDS: SODIUM CHLOR 0.9% 1000 ML INJ 1,000 ML IV SCH ×3 (00:46→09:54)
[2016-10-15] MEDS: niMODipine 30 MG CAP PO SCH ×6 (00:51→19:49)
[2016-10-15] MEDS: NOREPINEPHRINE INJ 4 MG in SODIUM CHLOR 0.9% 250 ML INJ 246 ML IV PRN ×6 (00:51→15:05)
[2016-10-15] MEDS ORDERED: EPINEPHrine HCL (1:1000) 1 MG/ML VIAL ONE (01:59)
[2016-10-15] MEDS: EPINEPHrine (1:1000) INJ 2 MG in DEXTROSE 5% IN WATER INJ 250 ML IV PRN ×14 (02:00→15:03)
[2016-10-15] MEDS ORDERED: LORazepam 2 MG/ML VIAL ONE (02:13)
[2016-10-15 02:30] LABS: AUTOMATED NEUTROPHIL # 10.9 TH/MM3 (1.8-7.7); BASOPHIL # 0.2 TH/MM3 (0-0.2); BASOPHIL % 1.3 % (0.0-2.0); EOSINOPHIL # 0.2 TH/MM3 (0-0.4); EOSINOPHIL % 1.2 % (0.0-4.0); HEMATOCRIT 27.2 % (39.0-51.0); LYMPH % 21.5 % (9.0-44.0); LYMPHOCYTE # 3.8 TH/MM3 (1.0-4.8); MEAN CELL VOLUME 97.2 FL (80.0-100.0); MEAN CORPUSCULAR HEMOGLOBIN 31.6 PG (27.0-34.0); MEAN CORPUSCULAR HGB CONC 32.5 % (32.0-36.0); MONO % 13.5 % (0.0-8.0); NEUT % 62.5 % (16.0-70.0); PLATELET COUNT 326 TH/MM3 (150-450); WHITE BLOOD COUNT 17.5 TH/MM3 (4.0-11.0)
[2016-10-15] MEDS ORDERED: FOSPHENYTOIN INJ 1,000 MGPE in SODIUM CHLORIDE 0.9% INJ 50 ML IV ONE (02:30)
[2016-10-15] MEDS ORDERED: LORazepam 2 MG/ML VIAL IV PUSH ONE (02:30)
[2016-10-15 02:36] LABS: HEMO FLAGS AUTO DIFF
[2016-10-15] MEDS: EPOPROSTENOL NEB SOLUTION 50 NG/KG/MIN 100 ML NEB SCH ×6 (02:44→19:53)
[2016-10-15 02:53] LABS: BICARBONATE 22.3 MEQ/L (21.0-32.0); POTASSIUM 3.2 MEQ/L (3.5-5.1); TOTAL BILIRUBIN ADULT 0.3 MG/DL (0.2-1.0)
[2016-10-15 03:03] LABS: SCAN/DIFF AUTO DIFF CONFIRMED
--- NOTE | 2016-10-15 03:06 | PD.PROCEDR ---
Procedure Note Procedure DATE: 10/15/69 PROCEDURE: L radial arterial catheter placement INDICATION: Need for hemodynamic monitoring. Prior right radial art line will not draw, placing additional line to confirm accuracy of hemodynamic monitoring. DETAILS OF PROCEDURE The patient was positioned. The skin was cleansed with Chloraprep. Additional barrier precautions included large sterile drape, sterile gloves, sterile gown, face mask, and hat. On the first attempt, the artery was accessed with an introducer needle. The guide wire was advanced. Using Seldinger technique 20 gauge arterial catheter was placed. The guide wire was removed. The catheter was connected to a transducer line and flushed with saline. The video monitor displayed normal arterial wave forms. The catheter was secured with 2-0 silk. A sterile dressing with antibiotic disc was applied. ESTIMATED BLOOD LOSS: minimal COMPLICATIONS: None Rhona Pisano MD Oct 15, 2016 03:06
[2016-10-15 03:13] LABS: BLOOD GAS BASE EXCESS -6.3 mmol/L (-2-2); BLOOD GAS HCO3 18 mmol/L (22-26); BLOOD GAS METHEMOGLOBIN 0.7 % (0-2); BLOOD GAS O2 HGB SATURATION 88 % (90-100); BLOOD GAS PCO2 31 mmHg (38-42); BLOOD GAS PO2 60 mmHg (61-120); BLOOD GAS TOTAL HGB 10.5 G/DL (12.0-16.0); TEMP CORR TO 98.6
[2016-10-15 03:15] LABS: CRITICAL VALUE YES; OXYGEN DEVICE VENT
[2016-10-15] MEDS ORDERED: CALCIUM CHLORIDE INJ 1 GM in SODIUM CHLORIDE 0.9% INJ 100 ML IV ONE (03:15)
[2016-10-15 03:16] LABS: DRAW SITE LT RADIAL; FIO2 100 %; NUMBER OF ARTERIAL PUNCTURES 1; STAT YES; ULNAR PULSE PRESENT; VENT SETTINGS SEE COMMENTS
--- NOTE | 2016-10-15 03:18 | RADRPT ---
EXAM DATE/TIME: 10/15/2016 02:13 [facility] COMPARISON: CHEST SINGLE AP, October 14, 2016, 13:58. INDICATIONS : Shortness of breath. MEDICAL HISTORY : Seizures SURGICAL HISTORY : None. ENCOUNTER: Subsequent ACUITY: 1 week PAIN SCORE: Non-responsive. LOCATION: Bilateral chest FINDINGS: A single view of the chest demonstrates endotracheal tube in good position. Right central line in sup erior vena cava. Bilateral mostly basilar and perihilar airspace disease similar to October 14. Smal l effusions. Underlying emphysema. NG tube enters stomach. CONCLUSION: 1. Endotracheal tube, nasogastric tube and right central line in satisfactory position. No significan t change in bilateral airspace disease since October 14. Gurwinder Root MD on October 15, 2016 at 3:15 Board Certified Radiologist. This report was verified electronically.
[2016-10-15] MEDS ORDERED: Vancomycin Consult Pharmacy 1 EA OTHER SCH (03:30)
--- NOTE | 2016-10-15 03:34 | HHI.CCPN ---
Subjective Remarks/Hospital Course 10/07: 56-year-old male presents with intracranial bleed. Patient was transferred from [facility] at [facility]. As per the paramedics and the nurse who assisted the patient said that patient earlier this morning was coming down the stairs when he started feeling some left-sided weakness and numbness. He called 911 and by the time EMS arrived they detected some deficit and called a stroke alert. Patient was taken to [facility]. When patient arrived his mental status started to decline and he was intubated emergently in the ER. A CAT scan of the head showed subarachnoid and subdural bleed. He was taking emergently to an angio suite for coiling of the aneurysm and later on to OR for subdural hematoma evacuation. 10/08: Remains sedated, orally intubated on mechanical ventilation. Arouses off sedation and following commands with both upper extremities earlier. Ventriculostomy in place. ICP 7, CPP mid 80s. 10/09: Remains sedated, orally intubated on mechanical ventilation. Arouses off sedation and follows commands with both upper extremities. Ventriculostomy in place. 10/10: Remains sedated, orally intubated on mechanical ventilation. Arouses off sedation and follows commands and both upper extremities. Ventriculostomy in place. ICP 5. Failed C Pap trial yesterday. 10/11: Extubated on 10/10, tolerating well. Awake and alert. Appears confused, moving all 4 extremities. Ventriculostomy discontinued today by neurosurgery 10/13: Patient has developed severe vasospasm at the left MCA territory on TCD's that was treated with IV route verapamil 10/14: patient extubated overnight. was originally following commands and neuro intact. TCDs this morning with increase LIs over yesterday, particularly Left MCA territory. On my evaluation early this morning, patient was aphasic, not moving the right side of his body, not following commands. SBP 140s at that time. net 2L negative/24h and uop almost 1L/hr at the time. I immediately bolused with 2L NS iv, placed arterial and central lines, started phenylephrine , increased SBP to goal 200 - 220 mmHg. called interventional neuroradiology and accompanied patient down personally to IR for IA verapamil again. I remained with the patient managing his hemodynamics down in IR and providing anxiolysis IV. I accompanied patient back up to [facility] where patient again was neuro intact and following commands. Sodium downtrending to 135 and urine studies and serum osms suggestive of urine sodium losses and high uop. added Florinef to mitigate sodium losses, and increased mivf to 500cc/hr to maintain euvolemia. later in the day patient decompensated requiring intubation for hyoxemia, cxr suggestive of pulmonary edema. 2d echo with evidence of EF 40%, septal hypokinesis, moderate MR. On levo, vaso, phenylephrine. difficult to get to goal SBP 200 mmHg, likely due to myocardial dysfunction. decreased goal to 180 - 200 mmHg to balance cardiac vs. neurologic goals. 10/15 Patient was discussed with Dr. Sullivan at shift change. Isuprel was initiated in effort to improve cardiac output as dobutamine not available and concerned with use of milrinone given long half life. Systolic blood pressure was relatively stable with perhaps some modest improvement from 170s to 180s for several hours after initiation. Notified when patient became abruptly hypotensive despite vasopressin, levophed 20 mcg/min, Greyson-Synephrine 300 mcg/m. He was also hypoxemic with sats in 80s despite PCV with PEEP 8 and FiO2 100%, respiratory rate in the 30s. He had decreased breath sounds bilaterally and was concerned for air trapping so removed from mechanical ventilation and bagged without improvement. Placed patient back on mechanical ventilation and provide recruitment maneuvers and increased PEEP to 12 which resulted in improvement of sats to 88% to 92%. Ordered Flolan. Discontinued isuprel and initiated epinephrine. R radial art line would not draw blood . Performed u/s guided femoral artery stick to confirm hypoxemia on ABG given poor wave form on pulse ox and PaO2 was 58. Placed new L radial art line and this resulted in ~ 30 point increase in SBP relative to prior line but patient ultimately on vasopressin, levophed 30 micrograms per minute, Greyson-Synephrine 300 micrograms per minute, epinephrine 12 mcg/min and unable to maintain target pressure (SBP in 150s). Given calcium chloride. patient with shaking movements all extremities, pupils 2mm and sluggish, no eye deviation. Rigors seemed most likely but unable to emergently rule out seizures so loaded with fosphenytoin to avoid secondary injury from seizure activity. WBC increasing and concern for HCAP so pancultured and placed on cefepime, vancomycin, azithromycin. Hydrocortisone 100 mg IV every 8 hours initiated due to concern for septic shock in a patient who has been refractory to all other above measures. Patient is to hemodynamically unstable and hypoxic for transport for neurologic imaging. Urine output has declined to 180-200 ML's per hour. Back off maintenance IV fluids to 200 ML's per hour. Bedside echo demonstrates decreased LV function with normal RV contractility and collapsible IVC suggesting ongoing maintenance fluid administration is appropriate. Objective Vital Signs Date Time Temp Pulse Resp B/P (MAP) Pulse Ox O2 Delivery O2 Flow Rate FiO2 10/15/16 02:45 100 100 10/15/16 02:00 111 128/90 10/15/16 00:00 101.0 16 10/14/16 08:15 Nasal Cannula 3.00 Intake and Output 10/15/16 10/15/16 10/16/16 08:00 16:00 00:00 Intake Total 2000 ml Balance 2000 ml Result Diagram: 10/15/16 0210 10/14/16 1000 Other Results Laboratory Tests Test 10/14/16 17:00 10/15/16 02:10 Blood Gas Puncture Site ART LINE LT RADIAL Blood Gas Patient Temperature 98.6 98.6 Blood Gas HCO3 18 mmol/L (22-26) 18 mmol/L (22-26) Blood Gas Base Excess -6.2 mmol/L (-2-2) -6.3 mmol/L (-2-2) Blood Gas Oxygen Saturation 98 % (90-100) 88 % (90-100) Arterial Blood pH 7.39 (7.380-7.420) 7.38 (7.380-7.420) Arterial Blood Partial Pressure CO2 30 mmHg (38-42) 31 mmHg (38-42) Arterial Blood Partial Pressure O2 160 mmHg (61-120) 60 mmHg (61-120) Arterial Blood Oxygen Content 17.9 Vol % (12.0-20.0) 13.0 Vol % (12.0-20.0) Arterial Blood Carboxyhemoglobin 0.9 % (0-4) 1.0 % (0-4) Arterial Blood Methemoglobin 0.6 % (0-2) 0.7 % (0-2) Blood Gas Hemoglobin 12.9 G/DL (12.0-16.0) 10.5 G/DL (12.0-16.0) Oxygen Delivery Device VENTILATOR VENT Blood Gas Ventilator Setting SEE COMMENTS Blood Gas Inspired Oxygen 80 % 100 % Imaging Last 24 hours Impressions Transcranial Doppler Study Complete 10/13/16 0600 Signed Impressions: Service Date/Time: September 07:41 - CONCLUSION: Likely developing left MCA territory vasospasm. Yosvany Polk MD Objective Remarks GENERAL: middle-aged male, orotracheally intubated, has previously been sedated on Versed, propofol, fentanyl SKIN: Warm and dry. HEAD: Status post left craniectomy EYES: No scleral icterus. No injection or drainage. NECK: Supple, trachea midline. CARDIOVASCULAR: Regular rate and rhythm. RESPIRATORY: Breath sounds diminished bilaterally. No accessory muscle use. GASTROINTESTINAL: Abdomen soft, non-tender, nondistended. MUSCULOSKELETAL: No cyanosis, mild edema. NEURO EXAM: Pupils 2 mm and sluggishly really reactive. Some eye opening to deep noxious stimuli. Off sedation upper and lower extremities are held in extension with some low amplitude shaking and rigidity. No response to Babinski. Procedures 10/13 Four-vessel cerebral angiography with verapamil treatment of vasospasm A/P Assessment and Plan Assessment: 56yM aneurysmal subarachnoid hemorrhage now with severe left MCA vasospasm. critically ill. will maintain euvolemia aggressively and press up to 180-220. would ideally like to press higher but cardiac dysfunction may prevent that. Acute hypoxic Respiratory failure - pulmonary edema, may be non-cardiogenic/neurogenic from SAH/vasospasm. cannot diurese due to active cerebral vasospasm. - will not extubate given hypoxemia. Subarachnoid/subdural bleed - Aneurysm coiled by IR - Alvarado Rodriguez 5 - Carroll grade 4 - Status post successful coiling embolization 10/08 - Status post subdural hematoma evacuation 10/08 - TCD's daily - Nimodipine for vasospasm prophylaxis - Keppra for seizure prophylaxis - 10/13 left MCA territory vasospasm, status post successful verapamil treatment by IR - SBP goal 180 - 220 mmHg - Greyson/Levo/Vaso/Epinephrine added. Stress dose steroids added due to refractory hypotension and concern for sepsis. - goal euvolemia - Decrease mivf @ 200 cc/hr - q1h uop - florinef 0.1mg po bid - Currently not hemodynamically stable for neurologic imaging GI/liver -Tolerating tube feeds. ID: Fever Sputum culture, blood culture. Hypoxic with refractory shock. May have superimposed sepsis due to HCAP. Initiated vancomycin, cefepime, azithromycin. Follow-up cultures DVT GI prophylaxis - SCDs - Teds -On SQH. - Pepcid Critical Care: CCT 30 minutes. . Time to perform other separately billable procedures was not included in the critical care time. This included the time that I spent in active management of his hypotension and severe hypoxemia, including active hemodynamic management in the ICU and multiple bedside ventilator changes to improve oxygenation. Rhona Pisano MD Oct 15, 2016 03:33
[2016-10-15 03:43] LABS: CALCIUM-PROTEIN CORRECTED 7.1 MG/DL (8.5-10.1)
[2016-10-15] MEDS: CHLORHEXIDINE GLUCONATE 2 % 1 PACK (2 CLOTHS) TOP SCH (04:00)
[2016-10-15] MEDS ORDERED: PHENYLEPHRINE HCL 10 MG/ML VIAL ONE (04:35)
[2016-10-15] MEDS: CEFEPIME INJ 2,000 MG in SODIUM CHLORIDE 0.9% INJ 100 ML IV SCH ×3 (04:49→19:39)
[2016-10-15] MEDS: HYDROCORTISONE SOD SUCCINATE 100 MG VIAL IV PUSH SCH ×3 (04:50→19:49)
[2016-10-15] MEDS: AZITHROMYCIN INJ 500 MG in SODIUM CHLOR 0.9% 250 ML INJ 250 ML IV SCH (04:50)
[2016-10-15] MEDS ORDERED: VANCOMYCIN 1,000 MG/NS 250 ML IV ONE ×2 (05:00)
[2016-10-15 05:22] LABS: BLOOD, URINE TRACE (NEG); COMMENT (UR) CATH-CULT NOT IND; CULTURE IF INDICATED CATH CULTURE NOT IND; GLUCOSE,URINE 1000 mg/dL (NEG); HYALINE CAST, URINE 1 /lpf (RARE); KETONE, URINE NEG (NEG); MUCUS URINE FEW /lpf (OCC); NITRITE,URINE NEG (NEG); URINE COLOR LIGHT-YELLOW (YELLW/STRAW)
[2016-10-15] MEDS: HEPARIN SODIUM - SQ 10,000 UNITS/ML VIAL SQ SCH ×3 (06:00→21:25)
[2016-10-15 06:04] LABS: BLOOD GAS CARBOXYHEMOGLOBIN 0.7 % (0-4); BLOOD GAS HCO3 16 mmol/L (22-26); BLOOD GAS METHEMOGLOBIN 0.8 % (0-2); BLOOD GAS O2 HGB SATURATION 98 % (90-100); BLOOD GAS OXYGEN CONTENT 19.1 Vol % (12.0-20.0); BLOOD GAS PCO2 28 mmHg (38-42); BLOOD GAS PO2 196 mmHg (61-120); BLOOD GAS TOTAL HGB 13.6 G/DL (12.0-16.0); TEMP CORR TO 98.6
[2016-10-15 06:05] LABS: CRITICAL VALUE YES; OXYGEN DEVICE VENT
[2016-10-15 06:06] LABS: DRAW SITE ART LINE; STAT NO; ULNAR PULSE PRESENT; VENT SETTINGS SEE COMMENTS
[2016-10-15] MEDS: levETIRAcetam INJ 500 MG in SODIUM CHLORIDE 0.9% INJ 100 ML IV SCH ×2 (07:02→17:20)
[2016-10-15] MEDS: CHLORHEXIDINE 0.12% (ORAL KIT) 15 ML CUP MT SCH ×2 (08:00→21:25)
[2016-10-15] MEDS: PHENYLEPHRINE INJ 40 MG in DEXTROSE 5% IN WATE 500 ML INJ 496 ML IV PRN ×8 (08:07→15:02)
[2016-10-15] MEDS: RESP: ALBUTEROL 2.5 MG/IPRATROPIUM 0.5 MG NEB (SCH) NEB ×4 (08:22→22:19)
[2016-10-15] MEDS: SODIUM CHLORIDE 0.9% FLUSH 5 ML FLUSH IVF SCH ×2 (09:00→21:00)
[2016-10-15] MEDS ORDERED: CALCIUM GLUCONATE INJ 2 GM in SODIUM CHLORIDE 0.9% INJ 100 ML IV ONE (09:00)
[2016-10-15] MEDS: PANTOPRAZOLE SOD 40 MG DELAYED RELEASE TAB PO SCH (09:00)
[2016-10-15] MEDS ORDERED: ALBUMIN HUMAN 5% 12.5 GM/250 ML BOTTLE IV ONE (09:17)
--- NOTE | 2016-10-15 09:45 | RADRPT ---
EXAM DATE/TIME: 10/15/2016 07:21 [facility] COMPARISON: No previous studies available for comparison. INDICATIONS : Subarachnoid hemorrhage. MEDICAL HISTORY : Subarachnoid hemorrhage. Hypertension. Respiratory failure. SURGICAL HISTORY : Left craniotomy. Ventriculostomy catheter. ENCOUNTER: Subsequent ACUITY: 1 week PAIN SCORE: Nonresponsive. LOCATION: Bilateral cranial Current Exam: Oct 15, 2016 [place] Ratio: Right: 2.8 Left: 2.1 Rodriguez Ratio: Right: 1.8 Left: 2.3 Previous Exam: Oct 14, 2016 [place] Ratio: Right: 3.1 Left: 5.3 Rodriguez Ratio: Right: 1.4 Left: 2.6 FINDINGS: Examination performed at bedside. Real-time ultrasound with the assistance of color and spectral Dop pler was utilized to evaluate the intracerebral circulation. Time-averaged maximal velocities are ca lculated in cm/s. Values are within normal limits today. CONCLUSION: Normal examination. Rolly Earl MD on October 15, 2016 at 9:43 Board Certified Radiologist. This report was verified electronically.
[2016-10-15] MEDS ORDERED: ROCURONIUM INJ 50 MG/5 ML VIAL ONE (09:50)
[2016-10-15] MEDS: FOSPHENYTOIN SODIUM 100 MG PE/2 ML VIAL IV SCH ×3 (10:09→21:24)
[2016-10-15 10:16] LABS: LACTIC ACID GHOST NOT REPORTABLE
--- NOTE | 2016-10-15 10:16 | EKG ---
Date Performed: 10/15/2016 Time Performed: 02:51:46 PTAGE: 56 years EKG: Sinus tachycardia. Normal ECG except for rate NO PREVIOUS TRACING DOCTOR: Yosef Bianchi Interpretating Date/Time 10/15/2016 10:13:43
[2016-10-15] MEDS: DOCUSATE SODIUM 100 MG CAP PO SCH ×2 (11:39→19:49)
[2016-10-15] MEDS: FLUDROCORTISONE ACETATE 0.1 MG TAB PO SCH ×2 (11:39→19:48)
[2016-10-15] MEDS: INSULIN ASPART SUPPLEMENTAL SCALE SQ SCH ×3 (12:55→18:00)
[2016-10-15] MEDS: CISATRACURIUM INJ 100 MG in SODIUM CHLOR 0.9% 250 ML INJ 250 ML IV PRN ×2 (13:00→18:37)
[2016-10-15] MEDS ORDERED: SODIUM CHLORIDE 23.4% INJ 240 MEQ in SYRINGE/BAG 1 EA IV ONE ×2 (13:15→15:30)
[2016-10-15] MEDS: SODIUM CHLORIDE 1 GRAM TAB PO SCH ×2 (13:35→17:18)
[2016-10-15] MEDS ORDERED: EPINEPHrine (1:1000) INJ 2 MG in DEXTROSE 5% IN WATER INJ 250 ML IV PRN ×2 (15:00)
[2016-10-15] MEDS ORDERED: NOREPINEPHRINE INJ 4 MG in SODIUM CHLOR 0.9% 250 ML INJ 246 ML IV PRN (15:00)
--- NOTE | 2016-10-15 15:07 | HHI.CCPN ---
Subjective Remarks/Hospital Course 10/07: 56-year-old male presents with intracranial bleed. Patient was transferred from [facility] at [facility]. As per the paramedics and the nurse who assisted the patient said that patient earlier this morning was coming down the stairs when he started feeling some left-sided weakness and numbness. He called 911 and by the time EMS arrived they detected some deficit and called a stroke alert. Patient was taken to [facility]. When patient arrived his mental status started to decline and he was intubated emergently in the ER. A CAT scan of the head showed subarachnoid and subdural bleed. He was taking emergently to an angio suite for coiling of the aneurysm and later on to OR for subdural hematoma evacuation. 10/08: Remains sedated, orally intubated on mechanical ventilation. Arouses off sedation and following commands with both upper extremities earlier. Ventriculostomy in place. ICP 7, CPP mid 80s. 10/09: Remains sedated, orally intubated on mechanical ventilation. Arouses off sedation and follows commands with both upper extremities. Ventriculostomy in place. 10/10: Remains sedated, orally intubated on mechanical ventilation. Arouses off sedation and follows commands and both upper extremities. Ventriculostomy in place. ICP 5. Failed C Pap trial yesterday. 10/11: Extubated on 10/10, tolerating well. Awake and alert. Appears confused, moving all 4 extremities. Ventriculostomy discontinued today by neurosurgery 10/13: Patient has developed severe vasospasm at the left MCA territory on TCD's that was treated with IV route verapamil 10/14: patient extubated overnight. was originally following commands and neuro intact. TCDs this morning with increase LIs over yesterday, particularly Left MCA territory. On my evaluation early this morning, patient was aphasic, not moving the right side of his body, not following commands. SBP 140s at that time. net 2L negative/24h and uop almost 1L/hr at the time. I immediately bolused with 2L NS iv, placed arterial and central lines, started phenylephrine , increased SBP to goal 200 - 220 mmHg. called interventional neuroradiology and accompanied patient down personally to IR for IA verapamil again. I remained with the patient managing his hemodynamics down in IR and providing anxiolysis IV. I accompanied patient back up to [facility] where patient again was neuro intact and following commands. Sodium downtrending to 135 and urine studies and serum osms suggestive of urine sodium losses and high uop. added Florinef to mitigate sodium losses, and increased mivf to 500cc/hr to maintain euvolemia. later in the day patient decompensated requiring intubation for hyoxemia, cxr suggestive of pulmonary edema. 2d echo with evidence of EF 40%, septal hypokinesis, moderate MR. On levo, vaso, phenylephrine. difficult to get to goal SBP 200 mmHg, likely due to myocardial dysfunction. decreased goal to 180 - 200 mmHg to balance cardiac vs. neurologic goals. 10/15 Patient was discussed with Dr. Sullivan at shift change. Isuprel was initiated in effort to improve cardiac output as dobutamine not available and concerned with use of milrinone given long half life. Systolic blood pressure was relatively stable with perhaps some modest improvement from 170s to 180s for several hours after initiation. Notified when patient became abruptly hypotensive despite vasopressin, levophed 20 mcg/min, Greyson-Synephrine 300 mcg/m. He was also hypoxemic with sats in 80s despite PCV with PEEP 8 and FiO2 100%, respiratory rate in the 30s. He had decreased breath sounds bilaterally and was concerned for air trapping so removed from mechanical ventilation and bagged without improvement. Placed patient back on mechanical ventilation and provide recruitment maneuvers and increased PEEP to 12 which resulted in improvement of sats to 88% to 92%. Ordered Flolan. Discontinued isuprel and initiated epinephrine. R radial art line would not draw blood . Performed u/s guided femoral artery stick to confirm hypoxemia on ABG given poor wave form on pulse ox and PaO2 was 58. Placed new L radial art line and this resulted in ~ 30 point increase in SBP relative to prior line but patient ultimately on vasopressin, levophed 30 micrograms per minute, Greyson-Synephrine 300 micrograms per minute, epinephrine 12 mcg/min and unable to maintain target pressure (SBP in 150s). Given calcium chloride. patient with shaking movements all extremities, pupils 2mm and sluggish, no eye deviation. Rigors seemed most likely but unable to emergently rule out seizures so loaded with fosphenytoin to avoid secondary injury from seizure activity. WBC increasing and concern for HCAP so pancultured and placed on cefepime, vancomycin, azithromycin. Hydrocortisone 100 mg IV every 8 hours initiated due to concern for septic shock in a patient who has been refractory to all other above measures. Patient is to hemodynamically unstable and hypoxic for transport for neurologic imaging. Urine output has declined to 180-200 ML's per hour. Back off maintenance IV fluids to 200 ML's per hour. Bedside echo demonstrates decreased LV function with normal RV contractility and collapsible IVC suggesting ongoing maintenance fluid administration is appropriate. 10/15 additional visit: continued to deteriorate throughout the day. Seen multiple times. hypoxic on 100% fio2, flolan. required nimbex drip to maintain. repeat bedside critical care ultrasound still demonstrates severe LV dysfunction , decompressed RV, IVC more dilated than previous echo overnight, however still with respiratory variation. femoral arterial line placed with better waveform and higher pressure (likely SVR too high to allow accurate measurement of radial pressure). Pulse contour analysis without stroke volume variation, CI 3.6. SV 52mL. trialed additional albumin without improvement in hemodynamics. uop slower than before, but still significant salt wasting in the urine- sodium dropped to 125 from 132 despite already on 3% nacl infusion and aggressive sodium replacements. forced to give 23% nacl and salt tabs. declining clinically despite maximal therapy. Objective Vital Signs Date Time Temp Pulse Resp B/P (MAP) Pulse Ox O2 Delivery O2 Flow Rate FiO2 10/15/16 14:00 127 10/15/16 12:53 173/101 10/15/16 12:22 92 100 10/15/16 12:00 99.7 20 10/14/16 08:15 Nasal Cannula 3.00 Intake and Output 10/15/16 10/15/16 10/16/16 08:00 16:00 00:00 Intake Total 98907 ml 5785 ml Output Total 2360 ml 2375 ml Balance 45129 ml 3410 ml Result Diagram: 10/15/16 0210 10/15/16 0830 Other Results Laboratory Tests Test 10/14/16 17:00 10/15/16 02:10 10/15/16 05:50 Blood Gas Puncture Site ART LINE LT RADIAL ART LINE Blood Gas Patient Temperature 98.6 98.6 98.6 Blood Gas HCO3 18 mmol/L (22-26) 18 mmol/L (22-26) 16 mmol/L (22-26) Blood Gas Base Excess -6.2 mmol/L (-2-2) -6.3 mmol/L (-2-2) -8.0 mmol/L (-2-2) Blood Gas Oxygen Saturation 98 % (90-100) 88 % (90-100) 98 % (90-100) Arterial Blood pH 7.39 (7.380-7.420) 7.38 (7.380-7.420) 7.38 (7.380-7.420) Arterial Blood Partial Pressure CO2 30 mmHg (38-42) 31 mmHg (38-42) 28 mmHg (38-42) Arterial Blood Partial Pressure O2 160 mmHg (61-120) 60 mmHg (61-120) 196 mmHg (61-120) Arterial Blood Oxygen Content 17.9 Vol % (12.0-20.0) 13.0 Vol % (12.0-20.0) 19.1 Vol % (12.0-20.0) Arterial Blood Carboxyhemoglobin 0.9 % (0-4) 1.0 % (0-4) 0.7 % (0-4) Arterial Blood Methemoglobin 0.6 % (0-2) 0.7 % (0-2) 0.8 % (0-2) Blood Gas Hemoglobin 12.9 G/DL (12.0-16.0) 10.5 G/DL (12.0-16.0) 13.6 G/DL (12.0-16.0) Oxygen Delivery Device VENTILATOR VENT VENT Blood Gas Ventilator Setting SEE COMMENTS SEE COMMENTS Blood Gas Inspired Oxygen 80 % 100 % Imaging Last 24 hours Impressions Transcranial Doppler Study Complete 10/13/16 0600 Signed Impressions: Service Date/Time: September 07:41 - CONCLUSION: Likely developing left MCA territory vasospasm. Yosvany Polk MD Objective Remarks GENERAL: middle-aged male, orotracheally intubated, has previously been sedated on Versed, propofol, fentanyl SKIN: Warm and dry. HEAD: Status post left craniectomy EYES: No scleral icterus. No injection or drainage. NECK: Supple, trachea midline. CARDIOVASCULAR: Regular rate and rhythm. RESPIRATORY: Breath sounds diminished bilaterally. No accessory muscle use. GASTROINTESTINAL: Abdomen soft, non-tender, nondistended. MUSCULOSKELETAL: No cyanosis, mild edema. NEURO EXAM: Pupils 2 mm and sluggishly really reactive. now paralyzed, RASS -5. Procedures 10/13 Four-vessel cerebral angiography with verapamil treatment of vasospasm A/P Assessment and Plan Assessment: 56yM aneurysmal subarachnoid hemorrhage now with severe left MCA vasospasm. Course now complicated by severe left ventricular dysfunction likely secondary to neuro insult, severe pulmonary edema, likely neurogenic/ noncardiogenic, hypoxic respiratory failure, circulatory shock likely combination septic shock and cardiogenic shock, multiorgan system failure. declining clinically. very critically ill. Plan by systems: Neurologic: Subarachnoid/subdural bleed Possible seizures - Aneurysm coiled by IR - Alvarado Rodriguez 5 - Carroll grade 4 - Status post successful coiling embolization 10/08 - Status post subdural hematoma evacuation 10/08 - TCD's daily - Nimodipine for vasospasm prophylaxis - Keppra for seizure prophylaxis - 10/13 and 10/14 left MCA territory vasospasm, status post successful verapamil treatment by IR - SBP goal 180 - 220 mmHg - Currently not hemodynamically stable for neurologic imaging - Keppra and Cerebyx load. Respiratory: Acute hypoxic Respiratory failure- worsening noncardiogenic/neurogenic pulmonary edema - pulmonary edema, may be non-cardiogenic/neurogenic from SAH/vasospasm. cannot diurese due to active cerebral vasospasm. - will not extubate given hypoxemia. - fio2 100%, peep 12 - vent bundle, hob 30 degrees, nebs - inhaled flolan - nimbex drip - maximal therapy. not feasible to prone given cardiac function, cerebral vasospasm, SAH. certainly not an ecmo candidate given hemodynamic instability Cardiovascular: Septic Shock Cardiogenic Shock - Greyson/Levo/Vaso/Epinephrine added. Stress dose steroids added due to refractory hypotension and concern for sepsis. - goal euvolemia - Decrease mivf @ 50 cc/hr Renal: Cerebral Salt Wasting/Hypovolemic SIADH - q1h uop - florinef increased to 0.2mg po bid - aggressively maintain euvolemia -- Strict I/Os FEN/GI: Severe hyponatremia - start salt tabs 3gm po TID - 3% nacl increase to 40cc/hr - serial sodiums - ICU electrolyte protocol - NPO while in shock Heme/ID: Septic Shock Possible HCAP - empiric abx - antonio cultures Endocrine: Presumed Adrenal Insufficiency - on both Florinef and Hydrocortisone. likely does not need both, but given severe instability, will not wean steroids right now. If clinically improves, would start weaning hydrocortisone. -- SSI Prophylaxis: GI Prophylaxis Protonix DVT Prophylaxis -- SCDs SQH Lines: - 10/14 right SC TLC - 10/14 right radial art line, removed 10/14 - 10/15 left radial art line - 10/15 left femoral art line - Erica Dispo: Remain in the ICU. Very critically ill. This patient remains critically ill with one or more organ systems which are or may become a threat to life. I have spent in excess of 144 minutes discontinuously in the care and management of this patient. This time is exclusive of procedures, and includes, but is not limited to, evaluation of the patient, review of the medical record, discussions with family, consultants, nursing staff, or respiratory therapy, and documentation in the medical record. Walter Sullivan MD Oct 15, 2016 15:07
[2016-10-15] MEDS ORDERED: TERBUTALINE INJ 1 MG/ML AMP SQ PRN (15:45)
[2016-10-15] MEDS: MIDAZOLAM 100 MG/100 ML INJ 100 ML IV PRN ×2 (16:11→21:38)
[2016-10-15] MEDS: fentaNYL DRIP 250 ML IV PRN (16:11)
[2016-10-15] MEDS: EPINEPHrine 8 MG/D5W 250 ML IV PRN ×2 (17:10)
[2016-10-15] MEDS: NOREPINEPHRINE INJ 16 MG in SODIUM CHLOR 0.9% 250 ML INJ 234 ML IV PRN (17:11)
[2016-10-15] MEDS: PHENYLEPHRINE HCL 160 MG/D5W 484 ML ADMIX IV PRN ×2 (17:12)
[2016-10-15] MEDS: VASOPRESSIN INJ 40 UNITS in DEXTROSE 5% IN WATER 100ML INJ 98 ML IV SCH ×2 (18:36)
[2016-10-15 18:43] LABS: BLOOD GAS BASE EXCESS -9.9 mmol/L (-2-2); BLOOD GAS HCO3 15 mmol/L (22-26); BLOOD GAS METHEMOGLOBIN 0.8 % (0-2); BLOOD GAS O2 HGB SATURATION 93 % (90-100); BLOOD GAS OXYGEN CONTENT 13.3 Vol % (12.0-20.0); BLOOD GAS PCO2 31 mmHg (38-42); BLOOD GAS PO2 79 mmHg (61-120); BLOOD GAS TOTAL HGB 10.1 G/DL (12.0-16.0); CRITICAL VALUE YES; DRAW SITE ART LINE; FIO2 100 %; OXYGEN DEVICE VENTILATOR; STAT NO; TEMP CORR TO 98.6; ULNAR PULSE PRESENT; VENT SETTINGS PRVC/AC
--- NOTE | 2016-10-15 19:18 | HHI.NSPN ---
History Chief Complaint: Intubated and sedated. Interval History 56-year-old male status post aneurysmal subarachnoid hemorrhage, peak common aneurysm coiling. Persistent vasospasm with angiogram and verapamil infusion 10/13/16 and 10/14/16. Exam Results Vital Signs Date Time Temp Pulse Resp B/P (MAP) Pulse Ox O2 Delivery O2 Flow Rate FiO2 10/15/16 18:36 123 135/101 10/15/16 16:00 98.2 20 95 10/15/16 16:00 90 10/14/16 08:15 Nasal Cannula 3.00 Intake and Output 10/15/16 10/15/16 10/16/16 08:00 16:00 00:00 Intake Total 53546 ml 6941 ml 1071 ml Output Total 2360 ml 3800 ml 1410 ml Balance 94508 ml 3141 ml -339 ml Physical Examination Intubated and sedated Respirations clear Abdomen soft Systolic blood pressure 150s Pupils 2 mm nonreactive No response to pain all extremities Lab, Micro, Other Results Last 24 hours Impressions Transcranial Doppler Study Complete 10/15/16 0600 Signed Impressions: Service Date/Time: Saturday, October 15, 2016 07:21 - CONCLUSION: Normal examination. Rolly Earl MD Chest X-Ray 10/15/16 0000 Signed Impressions: Service Date/Time: Saturday, October 15, 2016 02:13 - CONCLUSION: 1. Endotracheal tube, nasogastric tube and right central line in satisfactory position. No significant change in bilateral airspace disease since October 14. Gurwinder Root MD Laboratory Tests Test 10/15/16 02:10 10/15/16 03:40 10/15/16 04:40 10/15/16 05:50 White Blood Count 17.5 TH/MM3 Red Blood Count 2.80 MIL/MM3 Hemoglobin 8.8 GM/DL Hematocrit 27.2 % Mean Corpuscular Volume 97.2 FL Mean Corpuscular Hemoglobin 31.6 PG Mean Corpuscular Hemoglobin Concent 32.5 % Red Cell Distribution Width 13.0 % Platelet Count 326 TH/MM3 Mean Platelet Volume 8.2 FL Neutrophils (%) (Auto) 62.5 % Lymphocytes (%) (Auto) 21.5 % Monocytes (%) (Auto) 13.5 % Eosinophils (%) (Auto) 1.2 % Basophils (%) (Auto) 1.3 % Neutrophils # (Auto) 10.9 TH/MM3 Lymphocytes # (Auto) 3.8 TH/MM3 Monocytes # (Auto) 2.4 TH/MM3 Eosinophils # (Auto) 0.2 TH/MM3 Basophils # (Auto) 0.2 TH/MM3 CBC Comment AUTO DIFF Differential Comment AUTO DIFF CONFIRMED Blood Gas Puncture Site LT RADIAL ART LINE Blood Gas Patient Temperature 98.6 98.6 Blood Gas HCO3 18 mmol/L 16 mmol/L Blood Gas Base Excess -6.3 mmol/L -8.0 mmol/L Blood Gas Oxygen Saturation 88 % 98 % Arterial Blood pH 7.38 7.38 Arterial Blood Partial Pressure CO2 31 mmHg 28 mmHg Arterial Blood Partial Pressure O2 60 mmHg 196 mmHg Arterial Blood Oxygen Content 13.0 Vol % 19.1 Vol % Arterial Blood Carboxyhemoglobin 1.0 % 0.7 % Arterial Blood Methemoglobin 0.7 % 0.8 % Blood Gas Hemoglobin 10.5 G/DL 13.6 G/DL Oxygen Delivery Device VENT VENT Blood Gas Ventilator Setting SEE COMMENTS SEE COMMENTS Blood Gas Inspired Oxygen 100 % Blood Urea Nitrogen 6 MG/DL Creatinine 0.57 MG/DL Random Glucose 166 MG/DL Total Protein 5.9 GM/DL Albumin 2.1 GM/DL Calcium Level 6.5 MG/DL Alkaline Phosphatase 58 U/L Aspartate Amino Transf (AST/SGOT) 17 U/L Alanine Aminotransferase (ALT/SGPT) 22 U/L Total Bilirubin 0.3 MG/DL Sodium Level 132 MEQ/L Potassium Level 3.2 MEQ/L Chloride Level 100 MEQ/L Carbon Dioxide Level 22.3 MEQ/L Anion Gap 10 MEQ/L Estimat Glomerular Filtration Rate 149 ML/MIN Protein Corrected Calcium 7.1 MG/DL Troponin I 4.70 NG/ML Procalcitonin 6.86 ng/mL Random Cortisol 35.0 MCG/DL Urine Color LIGHT-YELLOW Urine Turbidity CLEAR Urine pH 5.0 Urine Specific [place] 1.010 Urine Protein NEG mg/dL Urine Glucose (UA) 1000 mg/dL Urine Ketones NEG mg/dL Urine Occult Blood TRACE Urine Nitrite NEG Urine Bilirubin NEG Urine Urobilinogen LESS THAN 2.0 MG/DL Urine Leukocyte Esterase NEG Urine RBC LESS THAN 1 /hpf Urine WBC 1 /hpf Urine Hyaline Casts 1 /lpf Urine Mucus FEW /lpf Microscopic Urinalysis Comment CATH-CULT NOT IND Test 10/15/16 08:05 10/15/16 08:30 10/15/16 14:15 10/15/16 14:33 Lactic Acid Level 2.7 mmol/L 2.8 mmol/L Sodium Level 125 MEQ/L 132 MEQ/L Troponin I 3.35 NG/ML 2.54 NG/ML Test 10/15/16 18:23 Blood Gas Puncture Site ART LINE Blood Gas Patient Temperature 98.6 Blood Gas HCO3 15 mmol/L Blood Gas Base Excess -9.9 mmol/L Blood Gas Oxygen Saturation 93 % Arterial Blood pH 7.31 Arterial Blood Partial Pressure CO2 31 mmHg Arterial Blood Partial Pressure O2 79 mmHg Arterial Blood Oxygen Content 13.3 Vol % Arterial Blood Carboxyhemoglobin 1.0 % Arterial Blood Methemoglobin 0.8 % Blood Gas Hemoglobin 10.1 G/DL Oxygen Delivery Device VENTILATOR Blood Gas Ventilator Setting PRVC/AC Blood Gas Inspired Oxygen 100 % Medical Decision Making Impression and Plan Impression/plan: 1. Subarachnoid hemorrhage, status post coiling posterior communicating artery aneurysm. 2. Vasospasm. Remains on nimodipine. Continuing daily transcranial Dopplers. Study 10-30 without evidence of vasospasm. Maintaining pressors for permissive hypertension with goal systolic blood pressure 180s. Remains on epinephrine, Greyson-Synephrine, Levophed, vasopressin. Blood pressure goal hindered by possible cardiogenic shock. 3. Possible seizures. Remains on Keppra and Cerebyx 4. SIADH. Remains on Florinef. Secondary hyponatremia. Remains on 3% hypertonic saline Discussed with it data architect at length today. Wilder Lopez MD Oct 15, 2016 19:18
[2016-10-15] MEDS: VANCOMYCIN INJ 1,250 MG in SODIUM CHLOR 0.9% 250 ML INJ 250 ML IV SCH (19:39)
[2016-10-16] VITALS (18 sets, daily range): BP systolic 138–174; BP diastolic 95–111; PULSE 117–127; RESP 20; TEMP 98–99.3; O2SAT 93–100
[2016-10-16] MEDS: INSULIN ASPART SUPPLEMENTAL SCALE SQ SCH ×4 (00:04→18:00)
[2016-10-16] MEDS: niMODipine 30 MG CAP PO SCH ×7 (00:07→23:40)
[2016-10-16] MEDS: EPINEPHrine 8 MG/D5W 250 ML IV PRN ×8 (00:08→18:09)
[2016-10-16] MEDS: 3% SALINE INJ 500 ML IV SCH ×3 (00:09→20:18)
[2016-10-16] MEDS: CHLORHEXIDINE GLUCONATE 2 % 1 PACK (2 CLOTHS) TOP SCH (04:00)
[2016-10-16] MEDS: AZITHROMYCIN INJ 500 MG in SODIUM CHLOR 0.9% 250 ML INJ 250 ML IV SCH (04:07)
[2016-10-16] MEDS: HYDROCORTISONE SOD SUCCINATE 100 MG VIAL IV PUSH SCH ×3 (04:07→20:20)
[2016-10-16] MEDS: CEFEPIME INJ 2,000 MG in SODIUM CHLORIDE 0.9% INJ 100 ML IV SCH ×3 (04:07→20:20)
[2016-10-16] MEDS: EPOPROSTENOL NEB SOLUTION 50 NG/KG/MIN 100 ML NEB SCH ×6 (04:42→19:00)
[2016-10-16] MEDS: FOSPHENYTOIN SODIUM 100 MG PE/2 ML VIAL IV SCH ×3 (05:07→20:21)
[2016-10-16] MEDS: HEPARIN SODIUM - SQ 10,000 UNITS/ML VIAL SQ SCH ×3 (05:07→20:20)
[2016-10-16] MEDS: levETIRAcetam INJ 500 MG in SODIUM CHLORIDE 0.9% INJ 100 ML IV SCH ×2 (05:08→17:10)
[2016-10-16] MEDS: VANCOMYCIN INJ 1,250 MG in SODIUM CHLOR 0.9% 250 ML INJ 250 ML IV SCH ×2 (05:09→17:34)
[2016-10-16] MEDS: fentaNYL DRIP 250 ML IV PRN (05:49)
[2016-10-16] MEDS: CHLORHEXIDINE 0.12% (ORAL KIT) 15 ML CUP MT SCH ×2 (07:16→20:00)
[2016-10-16] MEDS: PANTOPRAZOLE SOD 40 MG DELAYED RELEASE TAB PO SCH (07:52)
[2016-10-16 07:54] LABS: HEMATOCRIT 27.5 % (39.0-51.0); MEAN CELL VOLUME 95.5 FL (80.0-100.0); MEAN CORPUSCULAR HGB CONC 34.5 % (32.0-36.0); PLATELET COUNT 316 TH/MM3 (150-450); RED BLOOD COUNT 2.88 MIL/MM3 (4.50-5.90); RED CELL DISTRIBUTION WIDTH 12.8 % (11.6-17.2); REVIEW FLAG FINAL; WHITE BLOOD COUNT 19.6 TH/MM3 (4.0-11.0)
[2016-10-16 08:02] LABS: APTT (PATIENT) 31.6 SEC (24.3-30.1); INTERNATIONAL NORMALIZED RATIO 1.1 RATIO
[2016-10-16] MEDS: DOCUSATE SODIUM 100 MG CAP PO SCH ×2 (08:11→20:20)
[2016-10-16] MEDS: FLUDROCORTISONE ACETATE 0.1 MG TAB PO SCH (08:12)
[2016-10-16] MEDS: SODIUM CHLORIDE 0.9% FLUSH 5 ML FLUSH IVF SCH ×2 (08:12→20:22)
[2016-10-16] MEDS: SODIUM CHLORIDE 1 GRAM TAB PO SCH ×3 (08:12→17:20)
[2016-10-16 08:19] LABS: BICARBONATE 19.8 MEQ/L (21.0-32.0); CALCIUM-PROTEIN CORRECTED 7.8 MG/DL (8.5-10.1); TOTAL BILIRUBIN ADULT 0.4 MG/DL (0.2-1.0)
[2016-10-16 08:19] LABS: BLOOD GAS BASE EXCESS -5.7 mmol/L (-2-2); BLOOD GAS CARBOXYHEMOGLOBIN 1.1 % (0-4); BLOOD GAS HCO3 18 mmol/L (22-26); BLOOD GAS METHEMOGLOBIN 0.7 % (0-2); BLOOD GAS O2 HGB SATURATION 92 % (90-100); BLOOD GAS OXYGEN CONTENT 12.4 Vol % (12.0-20.0); BLOOD GAS PCO2 31 mmHg (38-42); BLOOD GAS PO2 69 mmHg (61-120); BLOOD GAS TOTAL HGB 9.5 G/DL (12.0-16.0); CRITICAL VALUE NO; DRAW SITE ART LINE; FIO2 65 %; OXYGEN DEVICE VENTILATOR; STAT NO; TEMP CORR TO 98.6; ULNAR PULSE PRESENT; VENT SETTINGS PRVC/AC
[2016-10-16 08:22] LABS: POTASSIUM 2.7 MEQ/L (3.5-5.1)
[2016-10-16] MEDS: RESP: ALBUTEROL 2.5 MG/IPRATROPIUM 0.5 MG NEB (SCH) NEB ×4 (08:28→21:17)
[2016-10-16] MEDS: POTASSIUM CHLOR 40 MEQ PREMIX 100 ML IV PRN ×4 (09:15→20:18)
[2016-10-16] MEDS ORDERED: POTASSIUM PHOSPHATE MONOBASIC 500 MG TAB PO PRN (09:15)
[2016-10-16] MEDS ORDERED: SODIUM PHOSPHATE INJ 30 MMOL in SODIUM CHLOR 0.9% 250 ML INJ 240 ML IV PRN (09:15)
[2016-10-16] MEDS ORDERED: MAGNESIUM OXIDE 400 MG TAB PO PRN (09:15)
[2016-10-16] MEDS ORDERED: MAGNESIUM SULFATE INJ 2 GM in SODIUM CHLORIDE 0.9% INJ 96 ML IV PRN (09:15)
[2016-10-16] MEDS ORDERED: POTASSIUM PHOSPHATE MONOBASIC 500 MG TAB PO/TUBE PRN (09:15)
[2016-10-16] MEDS ORDERED: MAGNESIUM SULFATE INJ 4 GM in SODIUM CHLORIDE 0.9% INJ 92 ML IV PRN (09:15)
[2016-10-16] MEDS ORDERED: POTASSIUM CHLOR 20 MEQ PREMIX 100 ML IV PRN (09:15)
[2016-10-16] MEDS ORDERED: CALCIUM GLUCONATE INJ 3 GM in SODIUM CHLORIDE 0.9% INJ 100 ML IV ONE (10:00)
[2016-10-16] MEDS ORDERED: SODIUM CHLORIDE 23.4% INJ 240 MEQ in SYRINGE/BAG 1 EA IV ONE (10:00)
--- NOTE | 2016-10-16 10:07 | RADRPT ---
EXAM DATE/TIME: 10/16/2016 09:24 [place] COMPARISON: CHEST SINGLE AP, October 15, 2016, 2:13. INDICATIONS : Evaluate pneumonia MEDICAL HISTORY : Seizures SURGICAL HISTORY : None. ENCOUNTER: Subsequent ACUITY: 1 week PAIN SCORE: 0/10 LOCATION: chest FINDINGS: There is bilateral consolidation greatest in the lower lobes. This is increased from previous. There are bilateral small effusions right greater than left. Heart size normal. Right subclavian line, endo tracheal tube and NG tube are noted. CONCLUSION: Worsening appearance of the chest. Rolly Earl MD on October 16, 2016 at 10:05 Board Certified Radiologist. This report was verified electronically.
[2016-10-16] MEDS: VASOPRESSIN INJ 40 UNITS in DEXTROSE 5% IN WATER 100ML INJ 98 ML IV SCH ×2 (10:23)
[2016-10-16] MEDS: CISATRACURIUM INJ 100 MG in SODIUM CHLOR 0.9% 250 ML INJ 250 ML IV PRN ×2 (10:23→18:08)
--- NOTE | 2016-10-16 10:44 | HHI.CCPN ---
Subjective Remarks/Hospital Course 10/07: 56-year-old male presents with intracranial bleed. Patient was transferred from [facility] at [facility]. As per the paramedics and the nurse who assisted the patient said that patient earlier this morning was coming down the stairs when he started feeling some left-sided weakness and numbness. He called 911 and by the time EMS arrived they detected some deficit and called a stroke alert. Patient was taken to [facility]. When patient arrived his mental status started to decline and he was intubated emergently in the ER. A CAT scan of the head showed subarachnoid and subdural bleed. He was taking emergently to an angio suite for coiling of the aneurysm and later on to OR for subdural hematoma evacuation. 10/08: Remains sedated, orally intubated on mechanical ventilation. Arouses off sedation and following commands with both upper extremities earlier. Ventriculostomy in place. ICP 7, CPP mid 80s. 10/09: Remains sedated, orally intubated on mechanical ventilation. Arouses off sedation and follows commands with both upper extremities. Ventriculostomy in place. 10/10: Remains sedated, orally intubated on mechanical ventilation. Arouses off sedation and follows commands and both upper extremities. Ventriculostomy in place. ICP 5. Failed C Pap trial yesterday. 10/11: Extubated on 10/10, tolerating well. Awake and alert. Appears confused, moving all 4 extremities. Ventriculostomy discontinued today by neurosurgery 10/13: Patient has developed severe vasospasm at the left MCA territory on TCD's that was treated with IV route verapamil 10/14: patient extubated overnight. was originally following commands and neuro intact. TCDs this morning with increase LIs over yesterday, particularly Left MCA territory. On my evaluation early this morning, patient was aphasic, not moving the right side of his body, not following commands. SBP 140s at that time. net 2L negative/24h and uop almost 1L/hr at the time. I immediately bolused with 2L NS iv, placed arterial and central lines, started phenylephrine , increased SBP to goal 200 - 220 mmHg. called interventional neuroradiology and accompanied patient down personally to IR for IA verapamil again. I remained with the patient managing his hemodynamics down in IR and providing anxiolysis IV. I accompanied patient back up to [facility] where patient again was neuro intact and following commands. Sodium downtrending to 135 and urine studies and serum osms suggestive of urine sodium losses and high uop. added Florinef to mitigate sodium losses, and increased mivf to 500cc/hr to maintain euvolemia. later in the day patient decompensated requiring intubation for hyoxemia, cxr suggestive of pulmonary edema. 2d echo with evidence of EF 40%, septal hypokinesis, moderate MR. On levo, vaso, phenylephrine. difficult to get to goal SBP 200 mmHg, likely due to myocardial dysfunction. decreased goal to 180 - 200 mmHg to balance cardiac vs. neurologic goals. 10/15 Patient was discussed with Dr. Sullivan at shift change. Isuprel was initiated in effort to improve cardiac output as dobutamine not available and concerned with use of milrinone given long half life. Systolic blood pressure was relatively stable with perhaps some modest improvement from 170s to 180s for several hours after initiation. Notified when patient became abruptly hypotensive despite vasopressin, levophed 20 mcg/min, Greyson-Synephrine 300 mcg/m. He was also hypoxemic with sats in 80s despite PCV with PEEP 8 and FiO2 100%, respiratory rate in the 30s. He had decreased breath sounds bilaterally and was concerned for air trapping so removed from mechanical ventilation and bagged without improvement. Placed patient back on mechanical ventilation and provide recruitment maneuvers and increased PEEP to 12 which resulted in improvement of sats to 88% to 92%. Ordered Flolan. Discontinued isuprel and initiated epinephrine. R radial art line would not draw blood . Performed u/s guided femoral artery stick to confirm hypoxemia on ABG given poor wave form on pulse ox and PaO2 was 58. Placed new L radial art line and this resulted in ~ 30 point increase in SBP relative to prior line but patient ultimately on vasopressin, levophed 30 micrograms per minute, Greyson-Synephrine 300 micrograms per minute, epinephrine 12 mcg/min and unable to maintain target pressure (SBP in 150s). Given calcium chloride. patient with shaking movements all extremities, pupils 2mm and sluggish, no eye deviation. Rigors seemed most likely but unable to emergently rule out seizures so loaded with fosphenytoin to avoid secondary injury from seizure activity. WBC increasing and concern for HCAP so pancultured and placed on cefepime, vancomycin, azithromycin. Hydrocortisone 100 mg IV every 8 hours initiated due to concern for septic shock in a patient who has been refractory to all other above measures. Patient is to hemodynamically unstable and hypoxic for transport for neurologic imaging. Urine output has declined to 180-200 ML's per hour. Back off maintenance IV fluids to 200 ML's per hour. Bedside echo demonstrates decreased LV function with normal RV contractility and collapsible IVC suggesting ongoing maintenance fluid administration is appropriate. 10/15 additional visit: continued to deteriorate throughout the day. Seen multiple times. hypoxic on 100% fio2, flolan. required nimbex drip to maintain. repeat bedside critical care ultrasound still demonstrates severe LV dysfunction , decompressed RV, IVC more dilated than previous echo overnight, however still with respiratory variation. femoral arterial line placed with better waveform and higher pressure (likely SVR too high to allow accurate measurement of radial pressure). Pulse contour analysis without stroke volume variation, CI 3.6. SV 52mL. trialed additional albumin without improvement in hemodynamics. uop slower than before, but still significant salt wasting in the urine- sodium dropped to 125 from 132 despite already on 3% nacl infusion and aggressive sodium replacements. forced to give 23% nacl and salt tabs. declining clinically despite maximal therapy. 10/16: continues to be maximally critically ill. LV dysfunction persists. starting to get volume overloaded, but given concern for ongoing cerebral vasospasm, unable to actively diurese patient. sodium wasting persists, but uop downtrending slightly. very hypokalemic today, likely due to steroids. remains intubated, sedated, paralyzed, on flolan. CXR today appears worse with worsening airspace disease. Lactate remains slightly elevated, confirming persistent shock. Objective Vital Signs Date Time Temp Pulse Resp B/P (MAP) Pulse Ox O2 Delivery O2 Flow Rate FiO2 10/16/16 10:23 122 158/87 10/16/16 08:28 96 65 10/16/16 08:00 98.6 20 10/14/16 08:15 Nasal Cannula 3.00 Intake and Output 10/16/16 10/16/16 10/17/16 08:00 16:00 00:00 Intake Total 3162 ml 639 ml Output Total 2825 ml 500 ml Balance 337 ml 139 ml Result Diagram: 10/16/16 0730 10/16/16 0730 Other Results Laboratory Tests Test 10/15/16 18:23 10/16/16 08:03 Blood Gas Puncture Site ART LINE ART LINE Blood Gas Patient Temperature 98.6 98.6 Blood Gas HCO3 15 mmol/L (22-26) 18 mmol/L (22-26) Blood Gas Base Excess -9.9 mmol/L (-2-2) -5.7 mmol/L (-2-2) Blood Gas Oxygen Saturation 93 % (90-100) 92 % (90-100) Arterial Blood pH 7.31 (7.380-7.420) 7.39 (7.380-7.420) Arterial Blood Partial Pressure CO2 31 mmHg (38-42) 31 mmHg (38-42) Arterial Blood Partial Pressure O2 79 mmHg (61-120) 69 mmHg (61-120) Arterial Blood Oxygen Content 13.3 Vol % (12.0-20.0) 12.4 Vol % (12.0-20.0) Arterial Blood Carboxyhemoglobin 1.0 % (0-4) 1.1 % (0-4) Arterial Blood Methemoglobin 0.8 % (0-2) 0.7 % (0-2) Blood Gas Hemoglobin 10.1 G/DL (12.0-16.0) 9.5 G/DL (12.0-16.0) Oxygen Delivery Device VENTILATOR VENTILATOR Blood Gas Ventilator Setting PRVC/AC PRVC/AC Blood Gas Inspired Oxygen 100 % 65 % Imaging Last 24 hours Impressions Transcranial Doppler Study Complete 10/13/16 0600 Signed Impressions: Service Date/Time: September 07:41 - CONCLUSION: Likely developing left MCA territory vasospasm. Yosvany Polk MD Objective Remarks GENERAL: middle-aged male, orotracheally intubated, sedated, paralyzed, critically ill. HEAD: Status post left craniectomy EYES: No scleral icterus. No injection or drainage. NECK: Supple, trachea midline. ett in place. CARDIOVASCULAR: tachycardic rate, regular rhythm. sinus by telemetry. RESPIRATORY: Breath sounds diminished bilaterally. bilateral coarse rales. No accessory muscle use. GASTROINTESTINAL: Abdomen soft, non-tender, nondistended. MUSCULOSKELETAL: No cyanosis, mild edema. NEURO EXAM: Pupils 2 mm and sluggishly really reactive. now paralyzed, RASS -5. Procedures 10/13 Four-vessel cerebral angiography with verapamil treatment of vasospasm A/P Assessment and Plan Assessment: 56yM aneurysmal subarachnoid hemorrhage now with severe left MCA vasospasm. Course now complicated by severe left ventricular dysfunction likely secondary to neuro insult, severe pulmonary edema, likely neurogenic/ noncardiogenic, hypoxic respiratory failure, circulatory shock likely combination septic shock and cardiogenic shock, multiorgan system failure. declining clinically. very critically ill. No improvements today in any of his end-organs. Goals Remain aggressive. Plan by systems: Neurologic: Subarachnoid/subdural bleed Possible seizures - Aneurysm coiled by IR - Alvarado Rodriguez 5 - Carroll grade 4 - Status post successful coiling embolization 10/08 - Status post subdural hematoma evacuation 10/08 - TCD's daily: slight improvement yesterday and today in LIs. - Nimodipine for vasospasm prophylaxis - Keppra for seizure prophylaxis - 10/13 and 10/14 left MCA territory vasospasm, status post successful verapamil treatment by IR - SBP goal 180 - 220 mmHg, although only able to press to 160 on maximal therapy given cardiac dysfunction. - Currently not hemodynamically stable for neurologic imaging - Keppra and Cerebyx load. - check dilantin level. Respiratory: Acute hypoxic Respiratory failure- worsening noncardiogenic/neurogenic pulmonary edema - pulmonary edema, may be non-cardiogenic/neurogenic from SAH/vasospasm. cannot diurese due to active cerebral vasospasm. - will not extubate given hypoxemia. - fio2 70%, peep 12 - vent bundle, hob 30 degrees, nebs - inhaled flolan - nimbex drip - maximal therapy. not feasible to prone given cardiac function, cerebral vasospasm, SAH. certainly not an ecmo candidate given hemodynamic instability Cardiovascular: Septic Shock Cardiogenic Shock Severe LV dysfunction secondary to SAH Elevated troponin- secondary to SAH, unlikely to be ACS. - Greyson/Levo/Vaso/Epinephrine added. Stress dose steroids added due to refractory hypotension and concern for sepsis. - goal euvolemia - d/c mvif. - would allow very slight negative fluid balance today, but still unable to actively diurese - troponin elevation likely secondary to his cardiac dysfunction secondary to SAH. unlikely to be ACS, and at this point unable to evaluate or intervene on coronary ischemia given how critically ill he is. Renal: Cerebral Salt Wasting/Hypovolemic SIADH - q1h uop - d/c florinef today. -- Strict I/Os FEN/GI: Severe hyponatremia Hypokalemia - salt tabs 3gm po TID - 3% nacl 40cc/hr - additional dose of 23% nacl today. - serial sodiums - ICU electrolyte protocol - aggressively replace potassium losses. - NPO while in shock Heme/ID: Septic Shock Possible HCAP - empiric abx: vanc, cefepime, azithro. - antonio cultures, currently NGTD. Endocrine: Presumed Adrenal Insufficiency - on both Florinef and Hydrocortisone. d/c florinef. keep hydrocortisone while in shock. -- SSI Prophylaxis: GI Prophylaxis Protonix DVT Prophylaxis -- SCDs SQH Lines: - 10/14 right SC TLC - 10/14 right radial art line, removed 10/14 - 10/15 left radial art line, removed 10/16 - 10/15 left femoral art line - Maldonado Dispo: Remain in the ICU. Very critically ill. This patient remains critically ill with one or more organ systems which are or may become a threat to life. I have spent in excess of 81 minutes discontinuously in the care and management of this patient. This time is exclusive of procedures, and includes, but is not limited to, evaluation of the patient, review of the medical record, discussions with family, consultants, nursing staff, or respiratory therapy, and documentation in the medical record. Walter Sullivan MD Oct 16, 2016 10:44
[2016-10-16] MEDS: PHENYLEPHRINE HCL 160 MG/D5W 484 ML ADMIX IV PRN ×4 (11:14→18:04)
[2016-10-16] MEDS: POTASSIUM CHLOR 20 MEQ PREMIX 100 ML IV PRN (12:22)
[2016-10-16] MEDS ORDERED: FUROSEMIDE 40 MG/4 ML VIAL ONE (13:27)
--- NOTE | 2016-10-16 15:41 | RADRPT ---
EXAM DATE/TIME: 10/16/2016 07:08 [facility] COMPARISON: US TRANSCRANIAL DOPPLER COMPLETE, October 15, 2016, 7:21. INDICATIONS : Subarachnoid hemorrhage. MEDICAL HISTORY : Subarachnoid hemorrhage. Hypertension. Respiratory failure. SURGICAL HISTORY : Left craniotomy. Ventriculostomy catheter. ENCOUNTER: Subsequent ACUITY: 1 week PAIN SCORE: Nonresponsive. LOCATION: cranial Current Exam: Oct 16, 2016 [place] Ratio: Right: 3.7 Left: 5.9 Rodriguez Ratio: Right: 2.4 Left: 3.4 Previous Exam: Oct 15, 2016 [place] Ratio: Right: 2.8 Left: 2.1 Rodriguez Ratio: Right: 1.8 Left: 2.3 FINDINGS: Examination performed at bedside. Real-time ultrasound with the assistance of color and spectral Dop pler was utilized to evaluate the intracerebral circulation. Time-averaged maximal velocities are ca lculated in cm/s. Lindegaard ratio is now 5.9 from 2.1. There is increasing velocities in the MCA on left. CONCLUSION: Study is becoming abnormal again with vasospasm on the left. Remington Woodward MD FACR on October 16, 2016 at 15:35 Board Certified Radiologist. This report was verified electronically.
[2016-10-16] MEDS: NOREPINEPHRINE INJ 16 MG in SODIUM CHLOR 0.9% 250 ML INJ 234 ML IV PRN (18:09)
--- NOTE | 2016-10-16 23:58 | HHI.NSPN ---
History Chief Complaint: Intubated and sedated. Interval History 56-year-old male status post aneurysmal subarachnoid hemorrhage, peak common aneurysm coiling. Persistent vasospasm with angiogram and verapamil infusion 10/13/16 and 10/14/16. Exam Results Vital Signs Date Time Temp Pulse Resp B/P (MAP) Pulse Ox O2 Delivery O2 Flow Rate FiO2 10/16/16 22:00 127 10/16/16 21:18 94 55 10/16/16 20:00 99.3 20 168/97 (120) Arterial Line 10/14/16 08:15 Nasal Cannula 3.00 Intake and Output 10/16/16 10/16/16 10/17/16 08:00 16:00 00:00 Intake Total 3162 ml 2643 ml 2440 ml Output Total 2825 ml 3675 ml 2225 ml Balance 337 ml -1032 ml 215 ml Physical Examination Intubated and sedated Respirations clear Abdomen soft Systolic blood pressure 150s Pupils 2 mm nonreactive No response to pain all extremities Lab, Micro, Other Results 10/16/2016 transcranial Doppler study reveals some recurrence of left-sided vasospasm per radiology. Medical Decision Making Impression and Plan Impression/plan: 1. Subarachnoid hemorrhage, status post coiling posterior communicating artery aneurysm. 10/16/16 transcranial Doppler with evidence of recurrent left side vasospasm. 2. Vasospasm. Remains on nimodipine. Continuing daily transcranial Dopplers. Study 10-30 without evidence of vasospasm. Maintaining pressors for permissive hypertension with goal systolic blood pressure 180s. Remains on epinephrine, Greyson-Synephrine, Levophed, vasopressin. Blood pressure goal hindered by possible cardiogenic shock. Plan CT scan head and cerebral angiogram 10/17/16 Patient's cardiac parameters generally improved today. 3. Possible seizures. Remains on Keppra and Cerebyx 4. SIADH. Remains on Florinef. Secondary hyponatremia. Remains on 3% hypertonic saline Wilder Lopez MD Oct 16, 2016 23:58
[2016-10-17] VITALS (18 sets, daily range): BP systolic 152–169; BP diastolic 90–97; PULSE 104–136; RESP 20; TEMP 98–98.8; O2SAT 91–100
[2016-10-17] MEDS: fentaNYL DRIP 250 ML IV PRN (00:11)
[2016-10-17] MEDS: MIDAZOLAM 100 MG/100 ML INJ 100 ML IV PRN (00:11)
[2016-10-17] MEDS: NOREPINEPHRINE INJ 16 MG in SODIUM CHLOR 0.9% 250 ML INJ 234 ML IV PRN ×4 (00:37→21:11)
[2016-10-17] MEDS: EPINEPHrine 8 MG/D5W 250 ML IV PRN ×4 (00:38→08:30)
[2016-10-17] MEDS: CISATRACURIUM INJ 100 MG in SODIUM CHLOR 0.9% 250 ML INJ 250 ML IV PRN ×3 (00:38→23:59)
[2016-10-17] MEDS: EPOPROSTENOL NEB SOLUTION 50 NG/KG/MIN 100 ML NEB SCH ×6 (01:14→19:51)
[2016-10-17 02:13] LABS: POTASSIUM 3.7 MEQ/L (3.5-5.1)
[2016-10-17] MEDS: VASOPRESSIN INJ 40 UNITS in DEXTROSE 5% IN WATER 100ML INJ 98 ML IV SCH ×6 (02:57→19:55)
[2016-10-17] MEDS: CHLORHEXIDINE GLUCONATE 2 % 1 PACK (2 CLOTHS) TOP SCH (02:59)
[2016-10-17] MEDS: niMODipine 30 MG CAP PO SCH ×6 (03:04→23:58)
[2016-10-17] MEDS: HYDROCORTISONE SOD SUCCINATE 100 MG VIAL IV PUSH SCH ×3 (03:04→19:53)
[2016-10-17] MEDS: AZITHROMYCIN INJ 500 MG in SODIUM CHLOR 0.9% 250 ML INJ 250 ML IV SCH (03:04)
[2016-10-17] MEDS: CEFEPIME INJ 2,000 MG in SODIUM CHLORIDE 0.9% INJ 100 ML IV SCH ×3 (03:04→19:52)
[2016-10-17] MEDS: PHENYLEPHRINE HCL 160 MG/D5W 484 ML ADMIX IV PRN ×2 (03:32)
[2016-10-17] MEDS: levETIRAcetam INJ 500 MG in SODIUM CHLORIDE 0.9% INJ 100 ML IV SCH ×2 (04:55→17:28)
[2016-10-17] MEDS: HEPARIN SODIUM - SQ 10,000 UNITS/ML VIAL SQ SCH ×3 (04:55→21:24)
[2016-10-17] MEDS: FOSPHENYTOIN SODIUM 100 MG PE/2 ML VIAL IV SCH ×3 (04:55→21:24)
[2016-10-17] MEDS ORDERED: PHARMACY ORDERED LAB ONE (05:45)
[2016-10-17] MEDS: VANCOMYCIN INJ 1,250 MG in SODIUM CHLOR 0.9% 250 ML INJ 250 ML IV SCH ×3 (05:57→21:24)
[2016-10-17] MEDS: INSULIN ASPART SUPPLEMENTAL SCALE SQ SCH ×4 (06:00→17:38)
--- NOTE | 2016-10-17 06:18 | RADRPT ---
EXAM DATE/TIME: 10/17/2016 05:27 [facility] COMPARISON: CHEST SINGLE AP, October 16, 2016, 9:24. INDICATIONS : Difficulty breathing. MEDICAL HISTORY : Seizures. SURGICAL HISTORY : None. ENCOUNTER: Subsequent ACUITY: 1 week PAIN SCORE: Non-responsive. LOCATION: Bilateral chest FINDINGS: Mid and lower lung predominant bilateral infiltrates persist, not significantly changed. Small, bilat eral pleural effusions are likely, especially on the right. No pneumothorax. Heart size stable, within normal limits. Endotracheal tube tip is approximately 5 cm above the jenna. There's a nasogastric tube coursing int o the stomach. Right subclavian central venous catheter again seen, tip in the superior vena cava. CONCLUSION: No significant change. Extensive basilar predominant bilateral infiltrates and small right pleural ef fusion are again noted. Yosvany Butler MD on October 17, 2016 at 6:15 Board Certified Radiologist. This report was verified electronically.
[2016-10-17 07:14] LABS: HEMATOCRIT 26.4 % (39.0-51.0); MEAN CELL VOLUME 96.7 FL (80.0-100.0); MEAN CORPUSCULAR HEMOGLOBIN 32.8 PG (27.0-34.0); MEAN CORPUSCULAR HGB CONC 33.9 % (32.0-36.0); PLATELET COUNT 294 TH/MM3 (150-450); RED BLOOD COUNT 2.73 MIL/MM3 (4.50-5.90); REVIEW FLAG FINAL; WHITE BLOOD COUNT 19.7 TH/MM3 (4.0-11.0)
[2016-10-17] MEDS: SODIUM CHLORIDE 1 GRAM TAB PO SCH ×3 (07:14→17:28)
[2016-10-17 07:35] LABS: ANION GAP 11 MEQ/L (5-15); AST (GOT) 8 U/L (15-37); BICARBONATE 20.1 MEQ/L (21.0-32.0); BLOOD UREA NITROGEN 10 MG/DL (7-18); CHLORIDE 105 MEQ/L (98-107); GLOMERULAR FILTRATION RATE 262 ML/MIN (>89); POTASSIUM 3.3 MEQ/L (3.5-5.1); SODIUM (NA) 136 MEQ/L (136-145)
[2016-10-17] MEDS: CHLORHEXIDINE 0.12% (ORAL KIT) 15 ML CUP MT SCH ×2 (07:35→19:53)
[2016-10-17] MEDS: PANTOPRAZOLE SOD 40 MG DELAYED RELEASE TAB PO SCH (07:35)
[2016-10-17] MEDS: SODIUM CHLORIDE 0.9% FLUSH 5 ML FLUSH IVF SCH ×2 (07:35→21:00)
[2016-10-17 07:36] LABS: ALT (GPT) 19 U/L (12-78)
[2016-10-17] MEDS: DOCUSATE SODIUM 100 MG CAP PO SCH ×2 (07:36→19:53)
[2016-10-17 07:39] LABS: ALKALINE PHOSPHATASE 62 U/L (45-117); TOTAL BILIRUBIN ADULT 0.4 MG/DL (0.2-1.0); VANCOMYCIN TROUGH 6.6 MCG/ML (5.0-10.0)
[2016-10-17] MEDS: POTASSIUM CHLOR 40 MEQ PREMIX 100 ML IV PRN (08:03)
[2016-10-17 08:20] LABS: BLOOD GAS BASE EXCESS -3.8 mmol/L (-2-2); BLOOD GAS HCO3 21 mmol/L (22-26); BLOOD GAS METHEMOGLOBIN 0.7 % (0-2); BLOOD GAS O2 HGB SATURATION 95 % (90-100); BLOOD GAS PCO2 41 mmHg (38-42); BLOOD GAS PO2 90 mmHg (61-120); BLOOD GAS TOTAL HGB 9.6 G/DL (12.0-16.0); CRITICAL VALUE NO; DRAW SITE ALINE; FIO2 55 %; OXYGEN DEVICE VENTILATOR; STAT NO; TEMP CORR TO 98.6; VENT SETTINGS PRVC/AC
[2016-10-17 08:21] LABS: CALCIUM-PROTEIN CORRECTED 8.6 MG/DL (8.5-10.1)
[2016-10-17] MEDS: RESP: ALBUTEROL 2.5 MG/IPRATROPIUM 0.5 MG NEB (SCH) NEB ×4 (09:09→19:56)
--- NOTE | 2016-10-17 09:46 | HHI.CCPN ---
Subjective Remarks/Hospital Course 10/07: 56-year-old male presents with intracranial bleed. Patient was transferred from [facility] at [facility]. As per the paramedics and the nurse who assisted the patient said that patient earlier this morning was coming down the stairs when he started feeling some left-sided weakness and numbness. He called 911 and by the time EMS arrived they detected some deficit and called a stroke alert. Patient was taken to [facility]. When patient arrived his mental status started to decline and he was intubated emergently in the ER. A CAT scan of the head showed subarachnoid and subdural bleed. He was taking emergently to an angio suite for coiling of the aneurysm and later on to OR for subdural hematoma evacuation. 10/08: Remains sedated, orally intubated on mechanical ventilation. Arouses off sedation and following commands with both upper extremities earlier. Ventriculostomy in place. ICP 7, CPP mid 80s. 10/09: Remains sedated, orally intubated on mechanical ventilation. Arouses off sedation and follows commands with both upper extremities. Ventriculostomy in place. 10/10: Remains sedated, orally intubated on mechanical ventilation. Arouses off sedation and follows commands and both upper extremities. Ventriculostomy in place. ICP 5. Failed C Pap trial yesterday. 10/11: Extubated on 10/10, tolerating well. Awake and alert. Appears confused, moving all 4 extremities. Ventriculostomy discontinued today by neurosurgery 10/13: Patient has developed severe vasospasm at the left MCA territory on TCD's that was treated with IV route verapamil 10/14: patient extubated overnight. was originally following commands and neuro intact. TCDs this morning with increase LIs over yesterday, particularly Left MCA territory. On my evaluation early this morning, patient was aphasic, not moving the right side of his body, not following commands. SBP 140s at that time. net 2L negative/24h and uop almost 1L/hr at the time. I immediately bolused with 2L NS iv, placed arterial and central lines, started phenylephrine , increased SBP to goal 200 - 220 mmHg. called interventional neuroradiology and accompanied patient down personally to IR for IA verapamil again. I remained with the patient managing his hemodynamics down in IR and providing anxiolysis IV. I accompanied patient back up to [facility] where patient again was neuro intact and following commands. Sodium downtrending to 135 and urine studies and serum osms suggestive of urine sodium losses and high uop. added Florinef to mitigate sodium losses, and increased mivf to 500cc/hr to maintain euvolemia. later in the day patient decompensated requiring intubation for hyoxemia, cxr suggestive of pulmonary edema. 2d echo with evidence of EF 40%, septal hypokinesis, moderate MR. On levo, vaso, phenylephrine. difficult to get to goal SBP 200 mmHg, likely due to myocardial dysfunction. decreased goal to 180 - 200 mmHg to balance cardiac vs. neurologic goals. 10/15 Patient was discussed with Dr. Sullivan at shift change. Isuprel was initiated in effort to improve cardiac output as dobutamine not available and concerned with use of milrinone given long half life. Systolic blood pressure was relatively stable with perhaps some modest improvement from 170s to 180s for several hours after initiation. Notified when patient became abruptly hypotensive despite vasopressin, levophed 20 mcg/min, Greyson-Synephrine 300 mcg/m. He was also hypoxemic with sats in 80s despite PCV with PEEP 8 and FiO2 100%, respiratory rate in the 30s. He had decreased breath sounds bilaterally and was concerned for air trapping so removed from mechanical ventilation and bagged without improvement. Placed patient back on mechanical ventilation and provide recruitment maneuvers and increased PEEP to 12 which resulted in improvement of sats to 88% to 92%. Ordered Flolan. Discontinued isuprel and initiated epinephrine. R radial art line would not draw blood . Performed u/s guided femoral artery stick to confirm hypoxemia on ABG given poor wave form on pulse ox and PaO2 was 58. Placed new L radial art line and this resulted in ~ 30 point increase in SBP relative to prior line but patient ultimately on vasopressin, levophed 30 micrograms per minute, Greyson-Synephrine 300 micrograms per minute, epinephrine 12 mcg/min and unable to maintain target pressure (SBP in 150s). Given calcium chloride. patient with shaking movements all extremities, pupils 2mm and sluggish, no eye deviation. Rigors seemed most likely but unable to emergently rule out seizures so loaded with fosphenytoin to avoid secondary injury from seizure activity. WBC increasing and concern for HCAP so pancultured and placed on cefepime, vancomycin, azithromycin. Hydrocortisone 100 mg IV every 8 hours initiated due to concern for septic shock in a patient who has been refractory to all other above measures. Patient is to hemodynamically unstable and hypoxic for transport for neurologic imaging. Urine output has declined to 180-200 ML's per hour. Back off maintenance IV fluids to 200 ML's per hour. Bedside echo demonstrates decreased LV function with normal RV contractility and collapsible IVC suggesting ongoing maintenance fluid administration is appropriate. 10/15 additional visit: continued to deteriorate throughout the day. Seen multiple times. hypoxic on 100% fio2, flolan. required nimbex drip to maintain. repeat bedside critical care ultrasound still demonstrates severe LV dysfunction , decompressed RV, IVC more dilated than previous echo overnight, however still with respiratory variation. femoral arterial line placed with better waveform and higher pressure (likely SVR too high to allow accurate measurement of radial pressure). Pulse contour analysis without stroke volume variation, CI 3.6. SV 52mL. trialed additional albumin without improvement in hemodynamics. uop slower than before, but still significant salt wasting in the urine- sodium dropped to 125 from 132 despite already on 3% nacl infusion and aggressive sodium replacements. forced to give 23% nacl and salt tabs. declining clinically despite maximal therapy. 10/16: continues to be maximally critically ill. LV dysfunction persists. starting to get volume overloaded, but given concern for ongoing cerebral vasospasm, unable to actively diurese patient. sodium wasting persists, but uop downtrending slightly. very hypokalemic today, likely due to steroids. remains intubated, sedated, paralyzed, on flolan. CXR today appears worse with worsening airspace disease. Lactate remains slightly elevated, confirming persistent shock. 10/17: Lung infiltrates dense bilaterally, reflected in shunting and problems with oxygenation. Developed vasospasm on TCDs and required angiogram and intra- arterial verapamil again today. Objective Vital Signs Date Time Temp Pulse Resp B/P (MAP) Pulse Ox O2 Delivery O2 Flow Rate FiO2 10/17/16 09:11 124 162/93 10/17/16 08:05 96 55 10/17/16 08:00 98.0 20 10/14/16 08:15 Nasal Cannula 3.00 Intake and Output 10/17/16 10/17/16 10/18/16 08:00 16:00 00:00 Intake Total 2872 ml 304 ml Output Total 2230 ml 300 ml Balance 642 ml 4 ml Result Diagram: 10/17/16 0545 10/17/16 0545 Other Results Laboratory Tests Test 10/17/16 08:16 Blood Gas Puncture Site IRVIN Blood Gas Patient Temperature 98.6 Blood Gas HCO3 21 mmol/L (22-26) Blood Gas Base Excess -3.8 mmol/L (-2-2) Blood Gas Oxygen Saturation 95 % (90-100) Arterial Blood pH 7.34 (7.380-7.420) Arterial Blood Partial Pressure CO2 41 mmHg (38-42) Arterial Blood Partial Pressure O2 90 mmHg (61-120) Arterial Blood Oxygen Content 13.0 Vol % (12.0-20.0) Arterial Blood Carboxyhemoglobin 1.0 % (0-4) Arterial Blood Methemoglobin 0.7 % (0-2) Blood Gas Hemoglobin 9.6 G/DL (12.0-16.0) Oxygen Delivery Device VENTILATOR Blood Gas Ventilator Setting PRVC/AC Blood Gas Inspired Oxygen 55 % Imaging Last 24 hours Impressions Transcranial Doppler Study Complete 10/13/16 0600 Signed Impressions: Service Date/Time: September 07:41 - CONCLUSION: Likely developing left MCA territory vasospasm. Yosvany Polk MD Objective Remarks GENERAL: middle-aged male, orotracheally intubated, sedated, paralyzed, critically ill. HEAD: Status post left craniectomy EYES: No scleral icterus. No injection or drainage. NECK: Supple, trachea midline. ett in place. CARDIOVASCULAR: tachycardic rate, regular rhythm. sinus by telemetry. RESPIRATORY: Breath sounds diminished bilaterally. bilateral rhonchi. Coarse sounds. GASTROINTESTINAL: Abdomen soft, non-tender, nondistended. MUSCULOSKELETAL: No cyanosis, 1+ edema. Well perfused. NEURO EXAM: Pupils 2 mm and sluggishly reactive. now paralyzed, RASS -5. Procedures 10/13 Four-vessel cerebral angiography with verapamil treatment of vasospasm A/P Assessment and Plan Assessment: 56yM aneurysmal subarachnoid hemorrhage now with severe left MCA vasospasm. Course now complicated by severe left ventricular dysfunction likely secondary to neuro insult, severe pulmonary edema, likely neurogenic/ noncardiogenic, hypoxic respiratory failure, circulatory shock likely combination septic shock and cardiogenic shock, multiorgan system failure. declining clinically. very critically ill. No improvements today in any of his end-organs. Goals Remain aggressive. Plan by systems: Neurologic: Subarachnoid/subdural bleed Possible seizures - Aneurysm coiled by IR - Alvarado Rodriguez 5 - Carroll grade 4 - Status post successful coiling embolization 10/08 - Status post subdural hematoma evacuation 10/08 - TCD's daily: slight improvement yesterday and today in LIs. - Nimodipine for vasospasm prophylaxis - Keppra for seizure prophylaxis - 10/13 and 10/14 left MCA territory vasospasm, status post successful verapamil treatment by IR - SBP goal 180 - 220 mmHg, although only able to press to 160 on maximal therapy given cardiac dysfunction. - Currently not hemodynamically stable for neurologic imaging - Keppra and Cerebyx load. - check dilantin level -> 7. Respiratory: Acute hypoxic Respiratory failure- worsening noncardiogenic/neurogenic pulmonary edema - pulmonary edema, may be non-cardiogenic/neurogenic from SAH/vasospasm. cannot diurese due to active cerebral vasospasm. - will not extubate given hypoxemia. - fio2 70%, peep 12 - vent bundle, hob 30 degrees, nebs - inhaled flolan - nimbex drip - maximal therapy. not feasible to prone given cardiac function, cerebral vasospasm, SAH. certainly not an ecmo candidate given hemodynamic instability Cardiovascular: Septic Shock Cardiogenic Shock Severe LV dysfunction secondary to SAH Elevated troponin- secondary to SAH, unlikely to be ACS. - Greyson/Levo/Vaso/Epinephrine added. Stress dose steroids added due to refractory hypotension and concern for sepsis. - goal euvolemia - d/c mvif. - would allow very slight negative fluid balance today, but still unable to actively diurese - troponin elevation likely secondary to his cardiac dysfunction secondary to SAH. unlikely to be ACS, and at this point unable to evaluate or intervene on coronary ischemia given how critically ill he is. Renal: Cerebral Salt Wasting/Hypovolemic SIADH - q1h uop - d/c florinef today. -- Strict I/Os FEN/GI: Severe hyponatremia Hypokalemia - salt tabs 3gm po TID - 3% nacl 40cc/hr - additional dose of 23% nacl today. - serial sodiums - ICU electrolyte protocol - aggressively replace potassium losses. - NPO while in shock Heme/ID: Septic Shock Possible HCAP - empiric abx: vanc, cefepime, azithro. - antonio cultures, currently NGTD. Endocrine: Presumed Adrenal Insufficiency - on both Florinef and Hydrocortisone. d/c florinef. keep hydrocortisone while in shock. -- SSI Prophylaxis: GI Prophylaxis Protonix DVT Prophylaxis -- SCDs SQH Lines: - 10/14 right SC TLC - 10/14 right radial art line, removed 10/14 - 10/15 left radial art line, removed 10/16 - 10/15 left femoral art line - Maldonado Dispo: Remain in the ICU. Very critically ill and prognosis is guarded at best. This patient remains critically ill with one or more organ systems which are or may become a threat to life. I have spent in excess of 35 minutes discontinuously in the care and management of this patient. This time is exclusive of procedures, and includes, but is not limited to, evaluation of the patient, review of the medical record, discussions with family, consultants, nursing staff, or respiratory therapy, and documentation in the medical record. Rodriguez Collazo MD Oct 17, 2016 09:46
[2016-10-17] MEDS ORDERED: EPINEPHrine (1:1000) INJ 8 MG in DEXTROSE 5% IN WATER INJ 242 ML IV PRN ×2 (10:15)
[2016-10-17] MEDS ORDERED: SODIUM CHLOR 0.9% 1000 ML INJ 1,000 ML IV ONE (11:00)
--- NOTE | 2016-10-17 11:49 | HHI.NSPN ---
Note Status Status: Progress Note Interval History Diagnosis SAH Interval History This is a 56-year-old male brought to the emergency room as an emergency transfer from another institution with history of intracranial bleed. He was transferred from [facility] and [facility]. Apparently the patient said that patient earlier this morning was coming down the stairs when he started feeling some left-sided weakness and numbness. He called 911 and by the time EMS arrived they detected severe neurological deficits and called a stroke alert. No seizure activity reported. No tongue biting. No incontinence of stool or urine. Patient was taken to [facility]. Apparently he was not able to move his right side . When patient arrived his mental status started to decline and he was intubated emergently in the ER for airway protection. A CT scan of the head showed extensive subarachnoid bleed. In addition he had a sizable subdural hematoma. He was brought emergently on the ventilator. He was on a propofol drip and well sedated. GCS was 3. He was on a Cardene drip and blood pressure was in the 120s. Neurosurgical consultation was requested 10/08. POD #1 Open eyes and follows commands 10/12. Doing very well. Neurologically stable. Patient is in restraints secondary to pulling out his [place] multiple times. 10/13. Much more lethargic, difficult to speak with new aphasia 10/14. Improved after angiography. Today he developed new onset of aphasia and right hemiparesis 10/17. Intubated and sedated. Lung infiltrates dense bilaterally, reflected in shunting and problems with oxygenation. Labs, Micro, & Vital Signs Results Date Time Temp Pulse Resp B/P (MAP) Pulse Ox O2 Delivery O2 Flow Rate FiO2 10/17/16 10:00 118 10/17/16 09:11 124 162/93 10/17/16 08:31 127 169/100 10/17/16 08:30 127 168/103 10/17/16 08:30 128 168/98 10/17/16 08:05 96 55 10/17/16 08:00 98.0 126 20 164/96 (118) 94 10/17/16 08:00 136 10/17/16 08:00 55 10/17/16 06:00 131 10/17/16 04:57 100 55 10/17/16 04:00 55 10/17/16 04:00 120 10/17/16 04:00 98.2 120 20 152/90 (110) 99 10/17/16 03:32 120 158/90 10/17/16 02:57 115 170/98 10/17/16 02:00 120 10/17/16 00:38 121 168/99 10/17/16 00:37 123 167/99 10/17/16 00:00 55 10/17/16 00:00 122 10/17/16 00:00 98.4 121 20 169/97 (121) 94 10/16/16 22:00 127 10/16/16 21:18 94 55 10/16/16 20:00 123 10/16/16 20:00 55 10/16/16 20:00 99.3 126 20 168/97 (120) 100 Arterial Line 10/16/16 18:09 119 163/93 10/16/16 18:09 119 163/94 10/16/16 18:04 120 163/93 10/16/16 18:00 118 10/16/16 16:08 96 55 10/16/16 16:00 55 10/16/16 16:00 98.0 122 20 165/95 (118) 96 10/16/16 16:00 122 10/16/16 14:00 121 10/16/16 12:38 124 170/97 10/16/16 12:00 99.3 125 20 174/99 (124) 94 10/16/16 12:00 55 10/16/16 12:00 125 10/16/16 11:43 93 55 10/18/16 07:00 Intake Total 1224 ml Output Total 1325 ml Balance -101 ml Constitutional Vital Signs Date Time Temp Pulse Resp B/P (MAP) Pulse Ox O2 Delivery O2 Flow Rate FiO2 10/17/16 10:00 118 10/17/16 09:11 124 162/93 10/17/16 08:31 127 169/100 10/17/16 08:30 127 168/103 10/17/16 08:30 128 168/98 10/17/16 08:05 96 55 10/17/16 08:00 98.0 126 20 164/96 (118) 94 10/17/16 08:00 136 10/17/16 08:00 55 10/17/16 06:00 131 10/17/16 04:57 100 55 10/17/16 04:00 55 10/17/16 04:00 120 10/17/16 04:00 98.2 120 20 152/90 (110) 99 10/17/16 03:32 120 158/90 10/17/16 02:57 115 170/98 10/17/16 02:00 120 10/17/16 00:38 121 168/99 10/17/16 00:37 123 167/99 10/17/16 00:00 55 10/17/16 00:00 122 10/17/16 00:00 98.4 121 20 169/97 (121) 94 10/16/16 22:00 127 10/16/16 21:18 94 55 10/16/16 20:00 123 10/16/16 20:00 55 10/16/16 20:00 99.3 126 20 168/97 (120) 100 Arterial Line 10/16/16 18:09 119 163/93 10/16/16 18:09 119 163/94 10/16/16 18:04 120 163/93 10/16/16 18:00 118 10/16/16 16:08 96 55 10/16/16 16:00 55 10/16/16 16:00 98.0 122 20 165/95 (118) 96 10/16/16 16:00 122 10/16/16 14:00 121 10/16/16 12:38 124 170/97 10/16/16 12:00 99.3 125 20 174/99 (124) 94 10/16/16 12:00 55 10/16/16 12:00 125 10/16/16 11:43 93 55 10/18/16 07:00 Intake Total 1224 ml Output Total 1325 ml Balance -101 ml Physical Exam Intubated and sedated Respirations clear Abdomen soft Systolic blood pressure 160s Pupils 2 mm nonreactive to light. Eyes appear conjugated. There was no nystagmus, no papilledema. Face musculature appeared symmetrical at rest. Face sensation, olfaction, visual rose, and hearing cannot be adequately assessed due to his neurological condition. The patient has a corneal reflex. He has a gag reflex. The sternocleidomastoid and trapezius are symmetrical. motor No response to pain all extremities Reflexes: Deep tendon reflexes are 1+ and symmetrical in the biceps, triceps, and brachioradialis, bilaterally, in the upper extremities. In the lower extremities, the patellar and ankles are 1+, bilaterally. There is a bilateral plantar flexion response. There is no clonus or other abnormal reflexes noted. Sensory: On examination there is no response to painful stimuli Cerebellar: Examination cannot be adequately assessed due to the patient's neurological condition. Medications Current Medications Current Medications Iohexol (Omnipaque 350 Inj) 100 ml STK-MED ONCE IVCONTRAST Last administered on 10/07/16 14:21; Start 10/07/16 at 14:21; Stop 10/07/16 at 15:21; Status DC Mannitol 50 ml @ As Directed STK-MED ONCE .ROUTE ; Start 10/07/16 at 15:25; Stop 10/07/16 at 15:26; Status DC Propofol 0 ml @ As Directed STK-MED ONCE .ROUTE ; Start 10/07/16 at 15:25; Stop 10/07/16 at 15:26; Status DC Levetriacetam (Keppra Inj) 1,000 mg STK-MED ONCE IV Last administered on 18:30; Start 10/07/16 at 15:27; Stop 10/07/16 at 15:28; Status DC Mannitol (Mannitol Inj) 50 gm ONCE ONCE IV Last administered on 10/13/16 21: 00; Start 10/07/16 at 15:30; Stop 10/07/16 at 15:31; Status DC Nicardipine HCl 25 mg/Sodium Chloride 260 ml @ 52 mls/hr Q5H PRN IV Blood pressure management; Start 10/07/16 at 15:40; Stop 10/14/16 at 21:02; Status DC Propofol 100 ml @ 0 mls/hr Q0M PRN IV Ordered RASS Last administered on 23:01; Start 10/07/16 at 15:40; Stop 10/07/16 at 23:16; Status DC Sodium Chloride 1,000 ml @ 75 mls/hr [id number] IV ; Start 10/07/16 at 16:08; Stop 10/07/16 at 18:34; Status DC Sodium Chloride (NS Flush) 2 ml UNSCH PRN IV FLUSH FLUSH AFTER USING IV ACCESS ; Start 10/07/16 at 16:15; Stop 10/07/16 at 18:40; Status DC Sodium Chloride (NS Flush) 2 ml BID IV FLUSH ; Start 10/07/16 at 21:00; Stop at 21:00; Status DC Acetaminophen (Tylenol) 650 mg Q6H PRN PO PAIN 1-10 AND/OR FEVER >101F; Start 10/07/16 at 16:15; Stop 10/07/16 at 19:04; Status DC Albuterol/ Ipratropium (Duoneb Neb) 1 ampule Q6HR NEB NEB Last administered on 10/11/16 15:16; Start 10/07/16 at 22:00; Stop 10/11/16 at 21:59; Status DC Albuterol/ Ipratropium (Duoneb Neb) 1 ampule Q4HR NEB PRN INH SHORTNESS OF BREATH Last administered on 10/14/16 19:33; Start 10/07/16 at 16:15 Chlorhexidine Gluconate (Peridex 0.12% Liq) 15 ml BID@08,20 MT Last administered on 10/17/16 07:35; Start 10/07/16 at 20:00 Pantoprazole Sodium (Protonix Inj) 40 mg DAILY IV ; Start 10/08/16 at 09:00; Stop 10/08/16 at 09:00; Status DC Miscellaneous Information 1 [id number] XX ; Start 10/07/16 at 16:15 Chlorhexidine Gluconate (Chlorhexidine 2% Cloth) Taper DAILY@04 TOP Last administered on 10/16/16 04:00; Start 10/08/16 at 04:00; Stop 10/04/17 at 03:59 Chlorhexidine Gluconate (Chlorhexidine 2% Cloth) 3 pack UNSCH PRN TOP HYGIENIC CARE; Start 10/07/16 at 16:15 Insulin Aspart (NovoLOG SUPPLEMENTAL SCALE) 1 Q6HR SQ Last administered on 18:00; Start 10/07/16 at 18:00 Propofol 100 ml @ 0 mls/hr Q0M PRN IV SEDATION; Start 10/07/16 at 16:08; Status UNV Nimodipine (Nimotop) 60 mg Q4HR OG-TUBE Last administered on 10/12/16 15:18; Start 10/07/16 at 20:00; Stop 10/12/16 at 23:47; Status DC Verapamil HCl (Isoptin Inj) 10 mg STK-MED ONCE .ROUTE ; Start 10/07/16 at 16:45 ; Stop 10/07/16 at 16:46; Status DC Nitroglycerin (Nitroglycerin 2% Oint) 1 inch STK-MED ONCE .ROUTE ; Start at 16:55; Stop 10/07/16 at 16:56; Status DC Heparin Sodium (Porcine) (Heparin Inj) 10,000 units STK-MED ONCE .ROUTE ; Start 10/07/16 at 16:56; Stop 10/07/16 at 16:57; Status DC Potassium Chloride/Sodium Chloride 1,000 ml @ 100 mls/hr Q10H IV Last administered on 10/14/16 07:08; Start 10/07/16 at 18:20; Stop 10/14/16 at 21:02; Status DC IV Flush (NS Flush) 2 ml UNSCH PRN IVF FLUSH AFTER USING IV ACCESS; Start 10/07 at 18:30 IV Flush (NS Flush) 2 ml BID IVF Last administered on 10/16/16 20:22; Start at 21:00 Cefazolin Sodium/ Dextrose 50 ml @ 100 mls/hr Q8H IV Last administered on 10/08 10:30; Start 10/07/16 at 19:00; Stop 10/08/16 at 11:29; Status DC Levetriacetam 500 mg/Sodium Chloride 105 ml @ 400 mls/hr Q12H IV Last administered on 10/17/16 04:55; Start 10/08/16 at 06:00 Bisacodyl (Dulcolax Supp) 10 mg DAILY PRN RECTAL CONSTIPATION; Start 10/07/16 at 18:30 Docusate Sodium (Colace) 100 mg BID PO Last administered on 10/16/16 20:20; Start 10/07/16 at 21:00 Pantoprazole Sodium (Protonix) 40 mg DAILY PO Last administered on 10/14/16 07: 47; Start 10/08/16 at 09:00 Pantoprazole Sodium (Protonix Inj) 40 mg DAILY IVP Last administered on 07:45; Start 10/08/16 at 09:00; Stop 10/12/16 at 14:30; Status DC Ondansetron HCl (Zofran Inj) 4 mg Q6H PRN IV NAUSEA OR VOMITING; Start at 18:30 Calcium Gluconate (Calcium Gluconate Inj) 1 gm UNSCH PRN IV SEE LABEL COMMENTS Last administered on 10/16/16 10:00; Start 10/07/16 at 18:30 Potassium Chloride 100 ml @ 50 mls/hr UNSCH PRN IV POTASSIUM LESS THAN 4 Last administered on 10/12/16 06:13; Start 10/07/16 at 18:30 Magnesium Sulfate 4 gm/Sodium Chloride 108 ml @ 108 mls/hr UNSCH PRN IV MAGNESIUM LESS THAN 2; Start 10/07/16 at 18:30 Acetaminophen/ Hydrocodone Bitart ([place] 10-325 Mg) 1 tab Q4H PRN PO PAIN SCALE 1 TO 5 Last administered on 10/13/16 13:07; Start 10/07/16 at 18:30; Stop 10/15/16 at 08:05; Status DC Acetaminophen/ Hydrocodone Bitart ([place] 10-325 Mg) 2 tab Q4H PRN PO PAIN SCALE 6 TO 10 Last administered on 10/09/16 10:20; Start 10/07/16 at 18:30; Stop 10/15/16 at 08:05; Status DC Morphine Sulfate (Morphine Inj) 2 mg Q2H PRN IV PUSH PAIN SCALE 1 TO 6 Last administered on 10/10/16 17:52; Start 10/07/16 at 18:30; Stop 10/15/16 at 08:05 ; Status DC Morphine Sulfate (Morphine Inj) 4 mg Q2H PRN IV PUSH PAIN SCALE 7 TO 10 Last administered on 10/08/16 01:55; Start 10/07/16 at 18:30; Stop 10/15/16 at 08:05 ; Status DC Acetaminophen (Tylenol) 650 mg Q4H PRN PO TEMP >100.4 Last administered on 10/12 18:15; Start 10/07/16 at 18:30 Iodixanol (VISIPAQUE 320 INJ (Rad Spec)) 65 ml STK-MED ONCE I-ARTERIAL Last administered on 10/07/16 18:38; Start 10/07/16 at 18:38; Stop 10/07/16 at 18:39 ; Status DC Dextrose (D50w (Vial) Inj) 50 ml UNSCH PRN IV PUSH HYPOGLYCEMIA - SEE COMMENTS ; Start 10/07/16 at 19:15 Glucagon (Glucagon Inj) 1 mg UNSCH PRN OTHER HYPOGLYCEMIA-SEE COMMENTS; Start 10/07/16 at 19:15 Midazolam HCl (Versed Inj) 4 mg STK-MED ONCE .ROUTE ; Start 10/07/16 at 19:51; Stop 10/07/16 at 19:52; Status DC Fentanyl Citrate (fentaNYL INJ) 250 mcg STK-MED ONCE .ROUTE ; Start 10/07/16 at 20:32; Stop 10/07/16 at 20:33; Status DC Propofol 100 ml @ 0 mls/hr TITRATE PRN IV Sedation Last administered on 20:29; Start 10/07/16 at 23:15 Epinephrine HCl (EPINEPHrine (1:10,000) INJ) 1 mg STK-MED ONCE .ROUTE ; Start at 04:09; Stop 10/09/16 at 04:10; Status DC Atropine Sulfate (Atropine Inj) 1 mg STK-MED ONCE .ROUTE ; Start 10/09/16 at 04: 09; Stop 10/09/16 at 04:10; Status DC Lidocaine HCl (Xylocaine 2% Inj) 100 mg STK-MED ONCE .ROUTE ; Start 10/09/16 at 04:09; Stop 10/09/16 at 04:10; Status DC Nimodipine (Nimotop) 60 mg Q4HR PO Last administered on 10/17/16 07:14; Start 10/13/16 at 00:00 Verapamil HCl (Isoptin Inj) 20 mg STK-MED ONCE .ROUTE Last administered on 10/13 17:10; Start 10/13/16 at 17:10; Stop 10/13/16 at 17:11; Status DC Iodixanol (VISIPAQUE 320 INJ (Rad Spec)) 45 ml STK-MED ONCE I-ARTERIAL Last administered on 10/13/16 17:40; Start 10/13/16 at 17:49; Stop 10/13/16 at 17:50 ; Status DC Midazolam HCl (Versed Inj) 2 mg STK-MED ONCE .ROUTE ; Start 10/13/16 at 18:32; Stop 10/13/16 at 18:33; Status DC Fentanyl Citrate (fentaNYL INJ) 200 mcg STK-MED ONCE .ROUTE ; Start 10/13/16 at 18:32; Stop 10/13/16 at 18:33; Status DC Sodium Chloride 2,000 ml @ 0 mls/hr Q0M IV Last administered on 10/14/16 20:20 ; Start 10/13/16 at 21:45; Stop 10/14/16 at 23:59; Status DC Phenylephrine HCl (Neosynephrine Inj) 10 mg STK-MED ONCE .ROUTE Last administered on 10/14/16 09:10; Start 10/14/16 at 09:10; Stop 10/14/16 at 09:11; Status DC Verapamil HCl (Isoptin Inj) 20 mg STK-MED ONCE .ROUTE Last administered on 10:19; Start 10/14/16 at 10:19; Stop 10/14/16 at 10:20; Status DC Fentanyl Citrate (fentaNYL INJ) 100 mcg STK-MED ONCE .ROUTE Last administered on 10/14/16 10:32; Start 10/14/16 at 10:32; Stop 10/14/16 at 10:33; Status DC Midazolam HCl (Versed Inj) 2 mg STK-MED ONCE .ROUTE Last administered on 10:32; Start 10/14/16 at 10:32; Stop 10/14/16 at 10:33; Status DC Midazolam HCl (Versed Inj) 2 mg STK-MED ONCE .ROUTE ; Start 10/14/16 at 10:32; Stop 10/14/16 at 10:33; Status DC Vasopressin 40 units/Dextrose 100 ml @ 4.5 mls/hr [id number] IV Last administered on 10/17/16 08:31; Start 10/14/16 at 11:30 Albumin Human (Albumin 5% Inj) 25 gm ONCE ONCE IV Last administered on 11:34; Start 10/14/16 at 11:15; Stop 10/14/16 at 11:17; Status DC Iodixanol (VISIPAQUE 320 INJ (Rad Spec)) 10 ml STK-MED ONCE I-ARTERIAL Last administered on 10/14/16 11:06; Start 10/14/16 at 11:06; Stop 10/14/16 at 11:07; Status DC Fludrocortisone Acetate (Florinef) 0.1 mg BID PO Last administered on 10/15/16 11:39; Start 10/14/16 at 11:45; Stop 10/15/16 at 13:17; Status DC Phenylephrine HCl (Neosynephrine Inj) 10 mg STK-MED ONCE .ROUTE Last administered on 10/14/16 12:18; Start 10/14/16 at 12:18; Stop 10/14/16 at 12:19; Status DC Norepinephrine Bitartrate 250 ml @ As Directed STK-MED ONCE IV ; Start 10/14/16 at 13:14; Stop 10/14/16 at 13:15; Status DC Norepinephrine Bitartrate (Levophed Inj) 4 mg STK-MED ONCE .ROUTE Last administered on 10/14/16 13:15; Start 10/14/16 at 13:15; Stop 10/14/16 at 13:16; Status DC Etomidate (Amidate Inj) 20 mg STK-MED ONCE .ROUTE Last administered on 14:18; Start 10/14/16 at 13:44; Stop 10/14/16 at 13:45; Status DC Midazolam HCl (Versed Inj) 5 mg STK-MED ONCE .ROUTE Last administered on 14:18; Start 10/14/16 at 13:44; Stop 10/14/16 at 13:45; Status DC Rocuronium Mcgregor (Zemuron Inj) 50 mg STK-MED ONCE .ROUTE Last administered on 10/14/16 14:17; Start 10/14/16 at 13:45; Stop 10/14/16 at 13:46; Status DC Fentanyl Citrate 250 ml @ 5 mls/hr TITRATE PRN IV SEDATION Last administered on 10/17/16 00:11; Start 10/14/16 at 15:00 Phenylephrine HCl (Neosynephrine Inj) 10 mg STK-MED ONCE .ROUTE Last administered on 10/14/16 14:26; Start 10/14/16 at 14:26; Stop 10/14/16 at 14:27; Status DC Norepinephrine Bitartrate 4 mg/ Sodium Chloride 250 ml @ 7.5 mls/hr TITRATE PRN IV Blood pressure management Last administered on 10/15/16 15:05; Start 10/14 at 14:45; Stop 10/15/16 at 14:54; Status DC Terbutaline Sulfate (Brethine Inj) 1 mg UNSCH PRN SQ For Extravasation; Start 10/14/16 at 14:45 Rocuronium Mcgregor (Zemuron Inj) 50 mg STK-MED ONCE .ROUTE Last administered on 10/14/16 14:43; Start 10/14/16 at 14:43; Stop 10/14/16 at 14:44; Status DC Midazolam HCl 100 ml @ 2 mls/hr TITRATE PRN IV SEDATION Last administered on 00:11; Start 10/14/16 at 15:00 Phenylephrine HCl (Neosynephrine Inj) 10 mg STK-MED ONCE .ROUTE ; Start 10/14/16 at 18:03; Stop 10/14/16 at 18:04; Status DC Phenylephrine HCl 40 mg/Dextrose 500 ml @ 30 mls/hr TITRATE PRN IV Blood pressure management Last administered on 10/15/16 15:02; Start 10/14/16 at 18:30 ; Stop 10/15/16 at 15:36; Status DC Terbutaline Sulfate (Brethine Inj) 1 mg UNSCH PRN SQ For Extravasation; Start 10/14/16 at 18:15; Stop 10/15/16 at 08:05; Status DC Heparin Sodium (Porcine) (Heparin Inj) 5,000 units Q8HR SQ Last administered on 10/17/16 04:55; Start 10/14/16 at 22:00 Isoproterenol HCl 2 mg/Dextrose 260 ml @ 23.4 mls/hr TITRATE PRN IV Hypotension Last administered on 10/14/16 21:26; Start 10/14/16 at 21:00; Status Future Hold Sodium Chloride 1,000 ml @ 50 mls/hr Q20H IV Last administered on 10/15/16 09: 54; Start 10/14/16 at 21:15; Stop 10/16/16 at 09:17; Status DC Phenylephrine HCl (Neosynephrine Inj) 40 mg STK-MED ONCE .ROUTE ; Start 10/14/16 at 23:30; Stop 10/14/16 at 23:31; Status DC Phenylephrine HCl (Neosynephrine Inj) 10 mg STK-MED ONCE .ROUTE ; Start 10/14/16 at 23:31; Stop 10/14/16 at 23:32; Status DC Epinephrine HCl 2 mg/Dextrose 252 ml @ 22.68 mls/ hr TITRATE PRN IV Blood Pressure Management Last administered on 10/15/16 15:03; Start 10/15/16 at 02:00 ; Stop 10/15/16 at 14:54; Status DC Epinephrine HCl (Adrenalin (1:1000) Inj) 2 mg STK-MED ONCE .ROUTE ; Start at 01:59; Stop 10/15/16 at 02:00; Status DC Lorazepam (Ativan Inj) 2 mg STK-MED ONCE .ROUTE ; Start 10/15/16 at 02:13; Stop 10/15/16 at 02:14; Status DC Epoprostenol Sodium 75 ml/ Sodium Chloride 100 ml @ 8 mls/hr Q8H NEB Last administered on 10/17/16 07:14; Start 10/15/16 at 03:00 Lorazepam (Ativan Inj) 2 mg ONCE ONCE IV PUSH Last administered on 10/15/16 03 :33; Start 10/15/16 at 02:30; Stop 10/15/16 at 02:37; Status DC Fosphenytoin Sodium 1000 mgpe/ Sodium Chloride 70 ml @ 280 mls/hr ONCE ONCE IV Last administered on 10/15/16 03:32; Start 10/15/16 at 02:30; Stop 10/15/16 at 02:44; Status DC Fosphenytoin Sodium (Cerebyx Inj) 100 mgpe Q8HR IV Last administered on 04:55; Start 10/15/16 at 10:00 Calcium Chloride 1 gm/Sodium Chloride 110 ml @ 110 mls/hr ONCE ONCE IV Last administered on 10/15/16 03:52; Start 10/15/16 at 03:15; Stop 10/15/16 at 04:14; Status DC Pharmacy Profile Note 0 ml @ 0 mls/hr UNSCH OTHER ; Start 10/15/16 at 03:30 Cefepime HCl 2000 mg/Sodium Chloride 100 ml @ 200 mls/hr Q8H IV Last administered on 10/17/16 03:04; Start 10/15/16 at 04:00 Azithromycin 500 mg/Sodium Chloride 250 ml @ 250 mls/hr Q24H IV Last administered on 10/17/16 03:04; Start 10/15/16 at 04:00 Albuterol/ Ipratropium (Duoneb Neb) 1 ampule Q4HR WHILE AWAKE NEB NEB Last administered on 10/17/16 09:09; Start 10/15/16 at 08:00 Vancomycin HCl 1000 mg/Sodium Chloride 250 ml @ 250 mls/hr ONCE ONCE IV Last administered on 10/15/16 07:02; Start 10/15/16 at 05:00; Stop 10/15/16 at 05:59; Status DC Hydrocortisone Sodium Succinate (SoluCORTEF INJ) 100 mg Q8H IV PUSH Last administered on 10/17/16 03:04; Start 10/15/16 at 04:00 Phenylephrine HCl (Neosynephrine Inj) 20 mg STK-MED ONCE .ROUTE ; Start 10/15/16 at 04:35; Stop 10/15/16 at 04:36; Status DC Sodium Chloride 500 ml @ 40 mls/hr CONTINUOUS IV Last administered on 20:18; Start 10/15/16 at 08:00 Calcium Gluconate 2 gm/Sodium Chloride 120 ml @ 120 mls/hr ONCE ONCE IV Last administered on 10/15/16 09:26; Start 10/15/16 at 09:00; Stop 10/15/16 at 09:59; Status DC Albumin Human (Albumin 5% Inj) 12.5 gm STK-MED ONCE IV Last administered on 10/15 09:17; Start 10/15/16 at 09:17; Stop 10/15/16 at 09:18; Status DC Rocuronium Mcgregor (Zemuron Inj) 50 mg STK-MED ONCE .ROUTE Last administered on 10/15/16 09:50; Start 10/15/16 at 09:50; Stop 10/15/16 at 09:51; Status DC Vancomycin HCl 1250 mg/Sodium Chloride 262.5 ml @ 262.5 mls/ hr Q12H IV Last administered on 10/17/16 05:57; Start 10/15/16 at 18:00; Stop 10/17/16 at 09:41; Status DC Miscellaneous Information SPECIFIC LAB TO BE LI... ONCE ONCE .XX Last administered on 10/17/16 05:45; Start 10/17/16 at 05:45; Stop 10/17/16 at 05:46; Status DC Cisatracurium Besylate 100 mg/ Sodium Chloride 260 ml @ 11.24 mls/ hr TITRATE PRN IV TOF 02/16 Last administered on 10/17/16 08:56; Start 10/15/16 at 13:00 Sodium Chloride 240 meq/Syringe / Bag 60 ml @ 120 mls/hr ONCE ONCE IV Last administered on 10/15/16 13:25; Start 10/15/16 at 13:15; Stop 10/15/16 at 13:44; Status DC Sodium Chloride (Sodium Chloride) 3 gm TID PO Last administered on 10/17/16 07: 14; Start 10/15/16 at 13:15 Fludrocortisone Acetate (Florinef) 0.2 mg BID PO Last administered on 10/16/16 08:12; Start 10/15/16 at 21:00; Stop 10/16/16 at 09:12; Status DC Epinephrine HCl 2 mg/Dextrose 252 ml @ 22.68 mls/ hr TITRATE PRN IV Blood Pressure Management; Start 10/15/16 at 15:00; Stop 10/15/16 at 15:32; Status DC Norepinephrine Bitartrate 4 mg/ Sodium Chloride 250 ml @ 7.5 mls/hr TITRATE PRN IV Blood pressure management; Start 10/15/16 at 15:00; Stop 10/15/16 at 15:56 ; Status DC Sodium Chloride 240 meq/Syringe / Bag 60 ml @ 120 mls/hr ONCE ONCE IV Last administered on 10/15/16 15:33; Start 10/15/16 at 15:30; Stop 10/15/16 at 15:59; Status DC Epinephrine HCl 8 mg/Dextrose 250 ml @ 5.62 mls/hr TITRATE PRN IV Blood Pressure Management Last administered on 10/17/16 08:30; Start 10/15/16 at 15:30 ; Stop 10/17/16 at 10:08; Status DC Phenylephrine HCl 160 mg/Dextrose 500 ml @ 7.5 mls/hr TITRATE PRN IV Blood Pressure Management Last administered on 10/17/16 03:32; Start 10/15/16 at 15:45 ; Stop 10/17/16 at 10:08; Status DC Terbutaline Sulfate (Brethine Inj) 1 mg UNSCH PRN SQ FOR EXTRAVASATION PROTOCOL ; Start 10/15/16 at 15:45 Norepinephrine Bitartrate 16 mg/ Sodium Chloride 250 ml @ 1.87 mls/hr TITRATE PRN IV Blood pressure management Last administered on 10/17/16 09:11; Start 10/15 at 16:00; Stop 10/17/16 at 10:08; Status DC Calcium Gluconate 3 gm/Sodium Chloride 130 ml @ 120 mls/hr ONCE ONCE IV Last administered on 10/16/16 09:48; Start 10/16/16 at 10:00; Stop 10/16/16 at 11:04; Status DC Sodium Chloride 240 meq/Syringe / Bag 60 ml @ 120 mls/hr ONCE ONCE IV Last administered on 10/16/16 09:48; Start 10/16/16 at 10:00; Stop 10/16/16 at 10:29; Status DC Magnesium Oxide (Mag-Ox) 800 mg UNSCH PRN PO For Magnesium 1.2 - 1.6 mg/dL; Start 10/16/16 at 09:15 Magnesium Sulfate 4 gm/Sodium Chloride 100 ml @ 50 mls/hr UNSCH PRN IV For Magnesium 0.9 - 1.1 mg/dL; Start 10/16/16 at 09:15 Magnesium Sulfate 2 gm/Sodium Chloride 100 ml @ 50 mls/hr UNSCH PRN IV For Magnesium 1.2 - 1.6 mg/dL; Start 10/16/16 at 09:15 Potassium Chloride 100 ml @ 50 mls/hr Q2H PRN IV For Potassium 2.8 - 3.2 mEq/ L Last administered on 10/16/16 12:22; Start 10/16/16 at 09:15 Potassium Chloride 100 ml @ 50 mls/hr Q2H PRN IV For Potassium 3.3 - 3.5 mEq/L ; Start 10/16/16 at 09:15 Potassium Chloride 100 ml @ 50 mls/hr Q2H PRN IV For Potassium 2.8 - 3.2 mEq/ L Last administered on 10/16/16 20:18; Start 10/16/16 at 09:15 Potassium Chloride 100 ml @ 25 mls/hr UNSCH PRN IV For Potassium 3.3 - 3.5 mEq /L Last administered on 10/17/16 08:03; Start 10/16/16 at 09:15 Potassium Phosphate (K-Phos) 2,000 mg Q4H PRN PO For Phosphorus < 2.5 mg/dL; Start 10/16/16 at 09:15 Potassium Phosphate (K-Phos) 2,000 mg UNSCH PRN PO/TUBE SEE LABEL COMMENTS; Start 10/16/16 at 09:15 Potassium Phosphate 30 mmol/ Sodium Chloride 260 ml @ 42 mls/hr UNSCH PRN IV SEE LABEL COMMENTS; Start 10/16/16 at 09:15 Sodium Phosphate 30 mmol/Sodium Chloride 250 ml @ 42 mls/hr UNSCH PRN IV For Phosphorus < 2.5 mg/dL; Start 10/16/16 at 09:15 Furosemide (Lasix Inj) 40 mg STK-MED ONCE .ROUTE Last administered on 10/16/16 13:27; Start 10/16/16 at 13:27; Stop 10/16/16 at 13:28; Status DC Vancomycin HCl 1250 mg/Sodium Chloride 262.5 ml @ 250 mls/hr Q8H IV ; Start 10/17/16 at 14:00 Miscellaneous Information SPECIFIC LAB TO BE ... ONCE ONCE .XX ; Start at 05:45; Stop 10/18/16 at 05:46 Sodium Chloride 1,000 ml @ 999 mls/hr BOLUS ONCE IV Last administered on 10:45; Start 10/17/16 at 11:00; Stop 10/17/16 at 12:00 Epinephrine HCl 8 mg/Dextrose 250 ml @ 5.62 mls/hr TITRATE PRN IV Blood Pressure Management; Start 10/17/16 at 10:15; Status Cancel Norepinephrine Bitartrate 16 mg/ Sodium Chloride 250 ml @ 1.87 mls/hr TITRATE PRN IV Blood pressure management; Start 10/17/16 at 10:15 Phenylephrine HCl 160 mg/Dextrose 500 ml @ 7.5 mls/hr TITRATE PRN IV Blood Pressure Management; Start 10/17/16 at 10:15 Epinephrine HCl 8 mg/Dextrose 250 ml @ 5.62 mls/hr TITRATE PRN IV Blood Pressure Management; Start 10/17/16 at 11:15 Medical Decision Making MDM Remarks Last 48 hours Impressions Chest X-Ray 10/17/16 0600 Signed Impressions: Service Date/Time: Monday, October 17, 2016 05:27 - CONCLUSION: No significant change. Extensive basilar predominant bilateral infiltrates and small right pleural effusion are again noted. Yosvany Butler MD Transcranial Doppler Study Complete 10/16/16 0600 Signed Impressions: Service Date/Time: Sunday, October 16, 2016 07:08 - CONCLUSION: Study is becoming abnormal again with vasospasm on the left. Remington Woodward MD FACR Chest X-Ray 10/16/16 0000 Signed Impressions: Service Date/Time: Sunday, October 16, 2016 09:24 - CONCLUSION: Worsening appearance of the chest. Rolly Earl MD Last 48 hours Impressions Transcranial Doppler Study Complete 10/14/16 0600 Signed Impressions: Service Date/Time: Friday, October 14, 2016 07:49 - CONCLUSION: Increasing transcranial Doppler evidence for vasospasm. CTA is suggested Remington Woodward MD FACR Chest X-Ray 10/14/16 0000 Signed Impressions: Service Date/Time: Friday, October 14, 2016 09:38 - CONCLUSION: Line in good position without pneumothorax. Remington Woodward MD FACR Transcranial Doppler Study Complete 10/13/16 06 Signed Impressions: Service Date/Time: September 07:41 - CONCLUSION: Likely developing left MCA territory vasospasm. Yosvany Polk MD Last 48 hours Impressions Transcranial Doppler Study Complete 10/13/16 0600 Signed Impressions: Service Date/Time: September 07:41 - CONCLUSION: Likely developing left MCA territory vasospasm. Yosvany Polk MD Transcranial Doppler Study Complete 10/12/16 0600 Signed Impressions: Service Date/Time: Wednesday, October 12, 2016 07:04 - CONCLUSION: No Doppler findings to suggest significant vasospasm. Santos Crockett Jr., MD Last 48 hours Impressions Transcranial Doppler Study Complete 10/12/16 0600 Signed Impressions: Service Date/Time: Wednesday, October 12, 2016 07:04 - CONCLUSION: No Doppler findings to suggest significant vasospasm. Santos Crockett Jr., MD Transcranial Doppler Study Complete 10/11/16 0600 Signed Impressions: Service Date/Time: Tuesday, October 11, 2016 07:34 - CONCLUSION: Normal transcranial Doppler parameters and indices Yosvany Polk MD Last Impressions Chest X-Ray 10/07/16 1700 Signed Impressions: Service Date/Time: Friday, October 07, 2016 20:53 - CONCLUSION: 1. Clear lungs. 2. A properly positioned endotracheal tube. 3. Nasogastric tube tip is in the upper stomach. The side hole is above the GE junction. Yosvany Butler MD Neck CTA 10/07/16 0000 Signed Impressions: Service Date/Time: Friday, October 07, 2016 15:03 - CONCLUSION: 1. Mild carotid bulb atherosclerotic calcification bilaterally. However, no significant stenosis is present in either internal carotid artery. 2. Paranasal sinus mucoperiosteal thickening. 3. Please refer to brain CTA report for description of the intracranial findings. Yosvany Ramirez MD Head CTA 10/07/16 0000 Signed Impressions: Service Date/Time: Friday, October 07, 2016 15:03 - CONCLUSION: 1. 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 2. Large left subdural hematoma measuring 1.3 cm in depth with a significant, 1.6 cm left to right subfalcine shift. Joni Shelton MD Head CT 10/07/16 0000 Signed Impressions: Service Date/Time: Friday, October 07, 2016 15:01 - CONCLUSION: Extensive intracranial hemorrhage on the left as detailed above with midline shift of 14 mm left to right. See the CTA reported separately. Santos Crockett Jr., MD Attending Statement His pneumonia is getting worse. Ongoing problme s with oxigenation He is in multiple vasopressors, with mild CSF. Attemting to increase cerebral perfussion. Will give today additional bolus of normal saline Continue neuro checks, follow-up TCD yesterday 10/16 again showed further evidence of vasospasm. Clinically deteriorated. Will obtain a follow up CT of the brain today, and then a new cerebral angiography with chemical angioplasty [facility]. Keep SBP around 160-180 Pulmonary. continue aggressive pulmonary toilette, nasotracheal suction, and breathing treatments with nebulizers. daily PT and OT Oral diet Renal. Continue to monitor closely urine output, BUN and creatinine Endocrine. Continue to Monitor serial Acu checks and SSI as needed in detail ID Continue to monitor for signs of infection Continue Protonix for stress ulcer prophylaxis Continue Colt hose and SCD's for DVT prophylaxis Discussed with Dr Zay Perry,George Chambers MD Oct 17, 2016 11:49
--- NOTE | 2016-10-17 13:05 | RADRPT ---
EXAM DATE/TIME: 10/17/2016 07:51 [facility] COMPARISON: US TRANSCRANIAL DOPPLER COMPLETE, October 16, 2016, 7:08. INDICATIONS : Subarachnoid hemorrhage. MEDICAL HISTORY : Subarachnoid hemorrhage. Hypertension. Respiratory failure. SURGICAL HISTORY : Left craniotomy. Ventriculostomy catheter. ENCOUNTER: Sequela ACUITY: 1 day PAIN SCORE: Nonresponsive. LOCATION: Bilateral cranial Current Exam: Oct 17, 2016 [place] Ratio: Right: 3.1 Left: 4.3 Rodriguez Ratio: Right: 1.5 Left: 2.6 Previous Exam: Oct 16, 2016 [place] Ratio: Right: 3.7 Left: 5.6 Rodriguez Ratio: Right: 2.4 Left: 3.4 FINDINGS: Examination performed at bedside. Real-time ultrasound with the assistance of color and spectral Dop pler was utilized to evaluate the intracerebral circulation. Time-averaged maximal velocities are ca lculated in cm/s. CONCLUSION: Minimal interval improvement with decrease in ratio on the left. Velocities remain elevated in the l eft MCA. Remington Woodward MD FACR on October 17, 2016 at 13:03 Board Certified Radiologist. This report was verified electronically.
--- NOTE | 2016-10-17 15:21 | RADRPT ---
EXAM DATE/TIME: 10/17/2016 15:06 [facility] COMPARISON: CT BRAIN W/O CONTRAST, October 09, 2016, 4:22. INDICATIONS : Follow up aneursym. RADIATION DOSE: 56.35 CTDIvol (mGy) MEDICAL HISTORY : Non-responsive. SURGICAL HISTORY : Non-responsive. ENCOUNTER: Subsequent ACUITY: 2 days PAIN SCALE: Non-responsive LOCATION: cranial TECHNIQUE: Multiple contiguous axial images were obtained of the head. Using automated exposure control and adj ustment of the mA and/or kV according to patient size, radiation dose was kept as low as reasonably a chievable to obtain optimal diagnostic quality images. DICOM format image data is available electro nically for review and comparison. FINDINGS: Patient is status post aneurysm on the left. Subarachnoid hemorrhage has resolved. Ventricles remai n prominent, slightly larger in the interval. Ventriculostomy is not identified. Patient has had pa rtial removal of the calvarium on the left the brain herniating through the operative defect. Posterior fossa remains unremarkable. CONCLUSION: Ventricles are slightly larger without ventriculostomy. Edema in the left hemisphere the brain herniating through the operative site. Remington Woodward MD FACR on October 17, 2016 at 15:17 Board Certified Radiologist. This report was verified electronically.
[2016-10-17] MEDS ORDERED: VERAPAMIL HCL 5 MG/2 ML VIAL ONE (15:34)
--- NOTE | 2016-10-17 16:15 | PD.RAD ---
Post Procedure Progress Note Pre Procedure Diagnosis: (1) Subarachnoid hemorrhage Post Procedure Diagnosis: (1) Subarachnoid hemorrhage Procedure Date: Oct 17, 2016 Supervising Radiologist: Harvey Morejon Proceduralist/Assist: Nik Kebede, RT(R), Alanna Ponce RT(R)() Anesthesia: General Plan of Activity Patient to Unit: Critical Care Patient Condition: Critical See PACS Report for procedural detail/treatment Vascular-Arterial Procedure Procedure 1 Procedure Site: Cerebral Procedure(s): Angiogram (and spasmolysis. mild spasm left mca 20 mg verapamil IA) Access Access Site(s): Right Femoral Artery Closure Site(s): Right manual pressure Harvey Morejon MD Oct 17, 2016 16:15
[2016-10-17] MEDS ORDERED: IODIXANOL 320 MG/ML 50 ML VIAL (for RAD SPEC) I-ARTERIAL ONE (16:31)
[2016-10-17] MEDS: SODIUM CHLOR 0.9% 1000 ML INJ 1,000 ML IV SCH (18:13)
[2016-10-17] MEDS: EPINEPHrine (1:1000) INJ 8 MG in DEXTROSE 5% IN WATER INJ 242 ML IV PRN ×2 (21:10)
[2016-10-18] VITALS (17 sets, daily range): BP systolic 157–167; BP diastolic 85–94; PULSE 115–127; RESP 20; TEMP 98.7–99.8; O2SAT 90–99
[2016-10-18] MEDS: PHENYLEPHRINE HCL 160 MG/D5W 484 ML ADMIX IV PRN ×4 (00:02→09:34)
[2016-10-18] MEDS: niMODipine 30 MG CAP PO SCH ×5 (03:33→20:55)
[2016-10-18] MEDS: HYDROCORTISONE SOD SUCCINATE 100 MG VIAL IV PUSH SCH ×3 (03:34→20:55)
[2016-10-18] MEDS: CEFEPIME INJ 2,000 MG in SODIUM CHLORIDE 0.9% INJ 100 ML IV SCH (03:34)
[2016-10-18] MEDS: AZITHROMYCIN INJ 500 MG in SODIUM CHLOR 0.9% 250 ML INJ 250 ML IV SCH (03:34)
[2016-10-18] MEDS: SODIUM CHLOR 0.9% 1000 ML INJ 1,000 ML IV SCH (03:35)
[2016-10-18] MEDS: NOREPINEPHRINE INJ 16 MG in SODIUM CHLOR 0.9% 250 ML INJ 234 ML IV PRN ×3 (03:37→16:30)
[2016-10-18] MEDS: CISATRACURIUM INJ 100 MG in SODIUM CHLOR 0.9% 250 ML INJ 250 ML IV PRN ×3 (03:38→14:20)
[2016-10-18] MEDS: EPINEPHrine (1:1000) INJ 8 MG in DEXTROSE 5% IN WATER INJ 242 ML IV PRN ×6 (03:39→17:14)
[2016-10-18] MEDS: CHLORHEXIDINE GLUCONATE 2 % 1 PACK (2 CLOTHS) TOP SCH (03:40)
[2016-10-18] MEDS: EPOPROSTENOL NEB SOLUTION 50 NG/KG/MIN 100 ML NEB SCH ×6 (05:26→20:54)
[2016-10-18] MEDS: VASOPRESSIN INJ 40 UNITS in DEXTROSE 5% IN WATER 100ML INJ 98 ML IV SCH ×2 (05:27)
[2016-10-18] MEDS: fentaNYL DRIP 250 ML IV PRN (05:27)
[2016-10-18] MEDS: HEPARIN SODIUM - SQ 10,000 UNITS/ML VIAL SQ SCH ×3 (05:28→20:56)
[2016-10-18] MEDS: levETIRAcetam INJ 500 MG in SODIUM CHLORIDE 0.9% INJ 100 ML IV SCH ×2 (05:28→17:13)
[2016-10-18] MEDS: FOSPHENYTOIN SODIUM 100 MG PE/2 ML VIAL IV SCH ×3 (05:28→20:56)
[2016-10-18] MEDS ORDERED: PHARMACY ORDERED LAB ONE (05:45)
[2016-10-18 06:00] LABS: HEMATOCRIT 23.6 % (39.0-51.0); MEAN CELL VOLUME 96.1 FL (80.0-100.0); MEAN CORPUSCULAR HEMOGLOBIN 32.9 PG (27.0-34.0); MEAN CORPUSCULAR HGB CONC 34.2 % (32.0-36.0); PLATELET COUNT 276 TH/MM3 (150-450); RED BLOOD COUNT 2.45 MIL/MM3 (4.50-5.90); RED CELL DISTRIBUTION WIDTH 13.2 % (11.6-17.2); REVIEW FLAG FINAL; WHITE BLOOD COUNT 18.6 TH/MM3 (4.0-11.0)
[2016-10-18] MEDS: INSULIN ASPART SUPPLEMENTAL SCALE SQ SCH ×5 (06:00→17:58)
[2016-10-18] MEDS: VANCOMYCIN INJ 1,250 MG in SODIUM CHLOR 0.9% 250 ML INJ 250 ML IV SCH (06:10)
[2016-10-18 07:11] LABS: ALKALINE PHOSPHATASE 79 U/L (45-117); ALT (GPT) 18 U/L (12-78); ANION GAP 10 MEQ/L (5-15); AST (GOT) 10 U/L (15-37); BICARBONATE 24.4 MEQ/L (21.0-32.0); BLOOD UREA NITROGEN 12 MG/DL (7-18); CHLORIDE 107 MEQ/L (98-107); GLOMERULAR FILTRATION RATE 182 ML/MIN (>89); SODIUM (NA) 141 MEQ/L (136-145); TOTAL BILIRUBIN ADULT 0.5 MG/DL (0.2-1.0); VANCOMYCIN TROUGH 11.6 MCG/ML (5.0-10.0)
[2016-10-18 07:17] LABS: POTASSIUM 2.6 MEQ/L (3.5-5.1)
--- NOTE | 2016-10-18 07:18 | HHI.CCPN ---
Subjective Remarks/Hospital Course 10/07: 56-year-old male presents with intracranial bleed. Patient was transferred from [facility] at [facility]. As per the paramedics and the nurse who assisted the patient said that patient earlier this morning was coming down the stairs when he started feeling some left-sided weakness and numbness. He called 911 and by the time EMS arrived they detected some deficit and called a stroke alert. Patient was taken to [facility]. When patient arrived his mental status started to decline and he was intubated emergently in the ER. A CAT scan of the head showed subarachnoid and subdural bleed. He was taking emergently to an angio suite for coiling of the aneurysm and later on to OR for subdural hematoma evacuation. 10/08: Remains sedated, orally intubated on mechanical ventilation. Arouses off sedation and following commands with both upper extremities earlier. Ventriculostomy in place. ICP 7, CPP mid 80s. 10/09: Remains sedated, orally intubated on mechanical ventilation. Arouses off sedation and follows commands with both upper extremities. Ventriculostomy in place. 10/10: Remains sedated, orally intubated on mechanical ventilation. Arouses off sedation and follows commands and both upper extremities. Ventriculostomy in place. ICP 5. Failed C Pap trial yesterday. 10/11: Extubated on 10/10, tolerating well. Awake and alert. Appears confused, moving all 4 extremities. Ventriculostomy discontinued today by neurosurgery 10/13: Patient has developed severe vasospasm at the left MCA territory on TCD's that was treated with IV route verapamil 10/14: patient extubated overnight. was originally following commands and neuro intact. TCDs this morning with increase LIs over yesterday, particularly Left MCA territory. On my evaluation early this morning, patient was aphasic, not moving the right side of his body, not following commands. SBP 140s at that time. net 2L negative/24h and uop almost 1L/hr at the time. I immediately bolused with 2L NS iv, placed arterial and central lines, started phenylephrine , increased SBP to goal 200 - 220 mmHg. called interventional neuroradiology and accompanied patient down personally to IR for IA verapamil again. I remained with the patient managing his hemodynamics down in IR and providing anxiolysis IV. I accompanied patient back up to [facility] where patient again was neuro intact and following commands. Sodium downtrending to 135 and urine studies and serum osms suggestive of urine sodium losses and high uop. added Florinef to mitigate sodium losses, and increased mivf to 500cc/hr to maintain euvolemia. later in the day patient decompensated requiring intubation for hyoxemia, cxr suggestive of pulmonary edema. 2d echo with evidence of EF 40%, septal hypokinesis, moderate MR. On levo, vaso, phenylephrine. difficult to get to goal SBP 200 mmHg, likely due to myocardial dysfunction. decreased goal to 180 - 200 mmHg to balance cardiac vs. neurologic goals. 10/15 Patient was discussed with Dr. Sullivan at shift change. Isuprel was initiated in effort to improve cardiac output as dobutamine not available and concerned with use of milrinone given long half life. Systolic blood pressure was relatively stable with perhaps some modest improvement from 170s to 180s for several hours after initiation. Notified when patient became abruptly hypotensive despite vasopressin, levophed 20 mcg/min, Greyson-Synephrine 300 mcg/m. He was also hypoxemic with sats in 80s despite PCV with PEEP 8 and FiO2 100%, respiratory rate in the 30s. He had decreased breath sounds bilaterally and was concerned for air trapping so removed from mechanical ventilation and bagged without improvement. Placed patient back on mechanical ventilation and provide recruitment maneuvers and increased PEEP to 12 which resulted in improvement of sats to 88% to 92%. Ordered Flolan. Discontinued isuprel and initiated epinephrine. R radial art line would not draw blood . Performed u/s guided femoral artery stick to confirm hypoxemia on ABG given poor wave form on pulse ox and PaO2 was 58. Placed new L radial art line and this resulted in ~ 30 point increase in SBP relative to prior line but patient ultimately on vasopressin, levophed 30 micrograms per minute, Greyson-Synephrine 300 micrograms per minute, epinephrine 12 mcg/min and unable to maintain target pressure (SBP in 150s). Given calcium chloride. patient with shaking movements all extremities, pupils 2mm and sluggish, no eye deviation. Rigors seemed most likely but unable to emergently rule out seizures so loaded with fosphenytoin to avoid secondary injury from seizure activity. WBC increasing and concern for HCAP so pancultured and placed on cefepime, vancomycin, azithromycin. Hydrocortisone 100 mg IV every 8 hours initiated due to concern for septic shock in a patient who has been refractory to all other above measures. Patient is to hemodynamically unstable and hypoxic for transport for neurologic imaging. Urine output has declined to 180-200 ML's per hour. Back off maintenance IV fluids to 200 ML's per hour. Bedside echo demonstrates decreased LV function with normal RV contractility and collapsible IVC suggesting ongoing maintenance fluid administration is appropriate. 10/15 additional visit: continued to deteriorate throughout the day. Seen multiple times. hypoxic on 100% fio2, flolan. required nimbex drip to maintain. repeat bedside critical care ultrasound still demonstrates severe LV dysfunction , decompressed RV, IVC more dilated than previous echo overnight, however still with respiratory variation. femoral arterial line placed with better waveform and higher pressure (likely SVR too high to allow accurate measurement of radial pressure). Pulse contour analysis without stroke volume variation, CI 3.6. SV 52mL. trialed additional albumin without improvement in hemodynamics. uop slower than before, but still significant salt wasting in the urine- sodium dropped to 125 from 132 despite already on 3% nacl infusion and aggressive sodium replacements. forced to give 23% nacl and salt tabs. declining clinically despite maximal therapy. 10/16: continues to be maximally critically ill. LV dysfunction persists. starting to get volume overloaded, but given concern for ongoing cerebral vasospasm, unable to actively diurese patient. sodium wasting persists, but uop downtrending slightly. very hypokalemic today, likely due to steroids. remains intubated, sedated, paralyzed, on flolan. CXR today appears worse with worsening airspace disease. Lactate remains slightly elevated, confirming persistent shock. 10/17: Lung infiltrates dense bilaterally, reflected in shunting and problems with oxygenation. Developed vasospasm on TCDs and required angiogram and intra- arterial verapamil again today. 10/18: SBP 160 - 170 range. FiO2 0.55. BNP > 5000. Not tolerating attempts at maintaining higher BP due to worsening heart failure. Several episodes of vasospasm. Watch daily TCDs closely. Sputum no growth. Objective Vital Signs Date Time Temp Pulse Resp B/P (MAP) Pulse Ox O2 Delivery O2 Flow Rate FiO2 10/18/16 06:00 117 10/18/16 05:27 160/90 10/18/16 04:00 55 10/18/16 04:00 98.7 20 95 10/14/16 08:15 Nasal Cannula 3.00 Intake and Output 10/18/16 10/18/16 10/19/16 08:00 16:00 00:00 Intake Total 2720 ml Output Total 2300 ml Balance 420 ml Result Diagram: 10/18/16 0545 10/18/16 0220 Other Results Laboratory Tests Test 10/17/16 08:16 Blood Gas Puncture Site IRVIN Blood Gas Patient Temperature 98.6 Blood Gas HCO3 21 mmol/L (22-26) Blood Gas Base Excess -3.8 mmol/L (-2-2) Blood Gas Oxygen Saturation 95 % (90-100) Arterial Blood pH 7.34 (7.380-7.420) Arterial Blood Partial Pressure CO2 41 mmHg (38-42) Arterial Blood Partial Pressure O2 90 mmHg (61-120) Arterial Blood Oxygen Content 13.0 Vol % (12.0-20.0) Arterial Blood Carboxyhemoglobin 1.0 % (0-4) Arterial Blood Methemoglobin 0.7 % (0-2) Blood Gas Hemoglobin 9.6 G/DL (12.0-16.0) Oxygen Delivery Device VENTILATOR Blood Gas Ventilator Setting PRVC/AC Blood Gas Inspired Oxygen 55 % Imaging Last 24 hours Impressions Transcranial Doppler Study Complete 10/13/16 0600 Signed Impressions: Service Date/Time: September 07:41 - CONCLUSION: Likely developing left MCA territory vasospasm. Yosvany Polk MD Objective Remarks GENERAL: middle-aged male, orotracheally intubated, sedated, paralyzed, critically ill. HEAD: Status post left craniectomy EYES: No conjunctival icterus. No injection or drainage. NECK: Supple, trachea midline. orotracheal tube in place. CARDIOVASCULAR: tachycardic rate, regular rhythm. sinus by telemetry. + JVD. RESPIRATORY: Breath sounds diminished bilaterally, bilateral rhonchi. Coarse sounds. GASTROINTESTINAL: Abdomen soft, non-tender, nondistended. BS few. MUSCULOSKELETAL: No cyanosis, 1-2+ edema. Fingers are poorly perfused, cool. NEURO EXAM: Pupils 2 mm and sluggishly reactive, now paralyzed, RASS -5. Procedures 10/13 Four-vessel cerebral angiography with verapamil treatment of vasospasm A/P Assessment and Plan Assessment: 56yM aneurysmal subarachnoid hemorrhage now with severe left MCA vasospasm. Course now complicated by severe left ventricular dysfunction likely secondary to neuro insult, severe pulmonary edema, likely neurogenic/ noncardiogenic, hypoxic respiratory failure, circulatory shock likely combination septic shock and cardiogenic shock, multiorgan system failure. declining clinically. very critically ill. No improvements today in any of his end-organs. Goals Remain aggressive. Plan by systems: Neurologic: Subarachnoid/subdural bleed Possible seizures - Aneurysm coiled by IR - Alvarado Rodriguez 5 - Carroll grade 4 - Status post successful coiling embolization 10/08 - Status post subdural hematoma evacuation 10/08 - TCD's daily: slight improvement yesterday and today in LIs. - Nimodipine for vasospasm prophylaxis - Keppra for seizure prophylaxis - 10/13 and 10/14 left MCA territory vasospasm, status post successful verapamil treatment by IR - SBP goal 180 - 220 mmHg, although only able to press to 160 on maximal therapy given cardiac dysfunction. - Keppra and Cerebyx load. - check dilantin level -> 7. - 10/17 vasospasm -> angio + verapamil, CT head without obvious infarction or CVA. Respiratory: Acute hypoxic Respiratory failure- worsening noncardiogenic/neurogenic pulmonary edema - pulmonary edema, may be non-cardiogenic/neurogenic from SAH/vasospasm. cannot diurese due to active cerebral vasospasm. - will not extubate given hypoxemia. - fio2 70%, peep 12 - vent bundle, hob 30 degrees, nebs - inhaled flolan at 50 ng/kg/min - nimbex drip - maximal therapy. not feasible to prone given cardiac function, cerebral vasospasm, SAH. Cardiovascular: Septic Shock Cardiogenic Shock Severe LV dysfunction secondary to SAH Elevated troponin- secondary to SAH, unlikely to be ACS. - Greyson/Levo/Vaso/Epinephrine added. Stress dose steroids added due to refractory hypotension and concern for sepsis. - goal euvolemia - d/c mvif. - would allow very slight negative fluid balance today, but still unable to actively diurese - troponin elevation likely secondary to his cardiac dysfunction secondary to SAH. unlikely to be ACS, and at this point unable to evaluate or intervene on coronary ischemia given how critically ill he is. Renal: Cerebral Salt Wasting/Hypovolemic SIADH - q1h uop - d/c florinef today. -- Strict I/Os - BNP > 5000 on 10/18 FEN/GI: Severe hyponatremia Hypokalemia - salt tabs 3gm po TID - 3% nacl 40cc/hr - additional dose of 23% nacl today. - serial sodiums - ICU electrolyte protocol - aggressively replace potassium losses. - NPO while in shock Heme/ID: Septic Shock Possible HCAP - d/c empiric abx: vanc, cefepime, azithro. - review antonio cultures, currently NGTD. Endocrine: Presumed Adrenal Insufficiency - on both Florinef and Hydrocortisone. d/c florinef. keep hydrocortisone while in shock. -- SSI Prophylaxis: GI Prophylaxis Protonix DVT Prophylaxis -- SCDs SQH Lines: - 10/14 right SC TLC - 10/14 right radial art line, removed 10/14 - 10/15 left radial art line, removed 10/16 - 10/15 left femoral art line - Maldonado Dispo: Remain in the ICU. Very critically ill and prognosis is guarded at best. Heart failure hampering our efforts to promote hypertension - before he was intubated he developed hemiparesis which resolved when SBP was pushed over 180. Fingertips are marginally perfused - will be forced to reduce vasopressors, try adding milrinone. This patient remains critically ill with one or more organ systems which are or may become a threat to life. I have spent in excess of 40 minutes discontinuously in the care and management of this patient. This time is exclusive of procedures, and includes, but is not limited to, evaluation of the patient, review of the medical record, discussions with family, consultants, nursing staff, or respiratory therapy, and documentation in the medical record. Rodriguez Collazo MD Oct 18, 2016 07:18
[2016-10-18] MEDS: PANTOPRAZOLE SOD 40 MG DELAYED RELEASE TAB PO SCH (07:24)
[2016-10-18] MEDS: CHLORHEXIDINE 0.12% (ORAL KIT) 15 ML CUP MT SCH ×2 (07:24→20:58)
[2016-10-18] MEDS: POTASSIUM CHLOR 40 MEQ PREMIX 100 ML IV PRN ×2 (07:34→15:12)
[2016-10-18 07:42] LABS: BLOOD GAS BASE EXCESS -3.5 mmol/L (-2-2); BLOOD GAS CARBOXYHEMOGLOBIN 1.2 % (0-4); BLOOD GAS HCO3 21 mmol/L (22-26); BLOOD GAS METHEMOGLOBIN 0.4 % (0-2); BLOOD GAS O2 HGB SATURATION 91 % (90-100); BLOOD GAS OXYGEN CONTENT 10.4 Vol % (12.0-20.0); BLOOD GAS PCO2 36 mmHg (38-42); BLOOD GAS PO2 66 mmHg (61-120); BLOOD GAS TOTAL HGB 8.1 G/DL (12.0-16.0); CRITICAL VALUE NO; OXYGEN DEVICE VENT; TEMP CORR TO 98.6
[2016-10-18 07:43] LABS: DRAW SITE ALINE; FIO2 55 %; STAT NO
[2016-10-18] MEDS: SODIUM CHLORIDE 0.9% FLUSH 5 ML FLUSH IVF SCH ×2 (08:09→21:00)
[2016-10-18 08:18] LABS: CALCIUM-PROTEIN CORRECTED 7.9 MG/DL (8.5-10.1)
[2016-10-18] MEDS: RESP: ALBUTEROL 2.5 MG/IPRATROPIUM 0.5 MG NEB (SCH) NEB ×3 (08:48→20:21)
[2016-10-18] MEDS: SODIUM CHLORIDE 1 GRAM TAB PO SCH ×3 (08:52→17:13)
[2016-10-18] MEDS: DOCUSATE SODIUM 100 MG CAP PO SCH ×2 (08:52→20:56)
[2016-10-18] MEDS ORDERED: POTASSIUM CHLORIDE 20 MEQ PWD PACKET NG ONE (09:00)
--- NOTE | 2016-10-18 09:09 | RADRPT ---
EXAM DATE/TIME: 10/17/2016 00:00 [facility] COMPARISON: ANGIOGRAM, CEREBRAL WO ARCH, October 14, 2016, 0:00. INDICATIONS : Patient presents with cerebral vasospasm in need of spasmolytic therapy for treatment. MEDICAL HISTORY : Seizures SAH Cerebral aneurysm Pneumonia Pulmonary edema Cerebral ischemia SURGICAL HISTORY : Ventriculostomy Craniotomy Cerebral coiling ENCOUNTER: Subsequent ACUITY: 1 week PAIN SCORE: 0/10 LOCATION: N/A FLUORO TIME: 3.6 minutes IMAGE SERIES: 4 ACCESS SITE: Right Femoral artery CONTRAST: 40 cc Visipaque (iodixanol) PROCEDURE : 1. Ultrasound-guided puncture of the access site. 2. Conscious sedation with continuous EKG and Oximetry monitoring. 3. Angiography of the right common carotid artery 4. Angiography of the left vertebral artery 5. Angiography of the left internal carotid artery 6. Spasmolysis of the left internal carotid artery The risks, benefits and alternatives to the procedure were explained and verbal and written consent w as obtained. The site was prepped in sterile fashion. Full sterile technique was used, including ca p, mask, sterile gloves and gown and a large sterile sheet. Hand hygiene and 2% chlorhexidine and/or betadine/alcohol prep was utilized per protocol for cutaneous antisepsis. Sterile gel and sterile p robe cover were utilized for ultrasound guidance. The skin and subcutaneous tissues were infiltrated with local anesthetic solution. With ultrasound and fluoroscopic guidance the selected artery was punctured and a vascular sheath was placed A JB2 catheter was placed the right common carotid artery and oblique view was performed demonstratin g normal cerebral circulation time and no evidence of spasm. The catheter was next placed into the le ft vertebral artery where a steep AP views performed demonstrating normal posterior fossa circulation and since patient time. The catheter was placed in the left internal carotid artery and oblique view demonstrates spasm of th e M1 segment of the left middle cervical artery with normal cerebral circulation time. 20 mg of vera pamil were placed intra-arterially was significant improvement in the appearance. The puncture site was closed with manual pressure and hemostasis was obtained. The patient tolerated the procedure well and there were no complications. Conscious sedation was performed with the prescribed dosages and duration as above in the presence of an independent trained radiology nurse to assist in the monitoring of the patient. EKG and oximetry remained stable throughout the procedure. CONCLUSION: 1. Uncompensated spasmolysis of the left middle cerebral artery Harvey Morejon MD on October 18, 2016 at 9:04 Board Certified Radiologist. This report was verified electronically.
--- NOTE | 2016-10-18 09:19 | RADRPT ---
EXAM DATE/TIME: 10/18/2016 07:56 [facility] COMPARISON: US TRANSCRANIAL DOPPLER COMPLETE, October 17, 2016, 7:51. INDICATIONS : Subarachnoid hemorrhage. MEDICAL HISTORY : Subarachnoid hemorrhage. Hypertension. Respiratory failure. SURGICAL HISTORY : Left craniotomy. Ventriculostomy catheter. ENCOUNTER: Subsequent ACUITY: 2 weeks PAIN SCORE: Nonresponsive. LOCATION: Bilateral cranial Current Exam: Oct 18, 2016 [place] Ratio: Right: 2.6 Left: 3.2 [place] Ratio: Right: 1.8 Left: 2.2 Previous Exam: Oct 17, 2016 [place] Ratio: Right: 3.1 Left: 4.3 Rodriguez Ratio: Right: 1.5 Left: 2.6 FINDINGS: Examination performed at bedside. Real-time ultrasound with the assistance of color and spectral Dop pler was utilized to evaluate the intracerebral circulation. Time-averaged maximal velocities are ca lculated in cm/s. Comparison with the prior study there is improving ratios involving the left middle cerebral artery f ollowing spasmolysis. The findings are characteristic of mild spasm. CONCLUSION: 1. Good response to spasmolysis involving the left middle cerebral artery with only mild spasm martín Morejon MD on October 18, 2016 at 9:12 Board Certified Radiologist. This report was verified electronically.
[2016-10-18] MEDS ORDERED: CALCIUM GLUCONATE INJ 1 GM in SODIUM CHLORIDE 0.9% INJ 100 ML IV PRN (09:45)
--- NOTE | 2016-10-18 09:45 | HHI.NSPN ---
(Malinda Hines) Note Status Status: Progress Note (Malinda Hines) Interval History Interval History This is a 56-year-old male brought to the emergency room as an emergency transfer from another institution with history of intracranial bleed. He was transferred from [facility] and [facility]. Apparently the patient said that patient earlier this morning was coming down the stairs when he started feeling some left-sided weakness and numbness. He called 911 and by the time EMS arrived they detected severe neurological deficits and called a stroke alert. No seizure activity reported. No tongue biting. No incontinence of stool or urine. Patient was taken to [facility]. Apparently he was not able to move his right side . When patient arrived his mental status started to decline and he was intubated emergently in the ER for airway protection. A CT scan of the head showed extensive subarachnoid bleed. In addition he had a sizable subdural hematoma. He was brought emergently on the ventilator. He was on a propofol drip and well sedated. GCS was 3. He was on a Cardene drip and blood pressure was in the 120s. Neurosurgical consultation was requested 10/08. POD #1 Open eyes and follows commands 10/12. Doing very well. Neurologically stable. Patient is in restraints secondary to pulling out his [place] multiple times. 10/13. Much more lethargic, difficult to speak with new aphasia 10/14. Improved after angiography. Today he developed new onset of aphasia and right hemiparesis 10/17. Intubated and sedated. Lung infiltrates dense bilaterally, reflected in shunting and problems with oxygenation. 10/18: underwent endovascular verapamil infusion to left MCA vasospasm yesterday. TCD today pending. left flap pak today. Intubated and sedated. continues to be on multiple pressors. on 3% NS. (Malinda Hines) Labs, Micro, & Vital Signs Results Date Time Temp Pulse Resp B/P (MAP) Pulse Ox O2 Delivery O2 Flow Rate FiO2 10/18/16 09:02 97 55 10/18/16 08:00 99.8 115 20 158/85 (109) 90 10/18/16 08:00 115 10/18/16 08:00 55 10/18/16 06:00 117 10/18/16 05:27 117 160/90 10/18/16 04:00 55 10/18/16 04:00 117 10/18/16 04:00 98.7 117 20 166/90 (115) 95 10/18/16 03:51 93 55 10/18/16 03:39 117 169/94 10/18/16 03:37 116 167/92 10/18/16 02:00 116 10/18/16 00:10 94 55 10/18/16 00:02 117 167/95 10/18/16 00:00 55 10/18/16 00:00 99.0 117 20 167/94 (118) 94 10/18/16 00:00 117 10/17/16 22:00 114 10/17/16 21:11 114 161/87 10/17/16 21:10 112 161/81 10/17/16 20:00 55 10/17/16 20:00 114 10/17/16 20:00 98.8 114 20 162/90 (114) 93 10/17/16 19:55 93 55 10/17/16 19:55 114 161/88 10/17/16 18:00 108 10/17/16 17:33 92 55 10/17/16 16:45 96 10/17/16 16:00 55 10/17/16 16:00 98.6 104 20 157/90 (112) 91 10/17/16 16:00 104 10/17/16 14:00 117 10/17/16 12:00 98.6 121 20 165/97 (119) 94 10/17/16 12:00 121 10/17/16 12:00 55 10/17/16 11:55 92 55 10/17/16 10:00 118 10/19/16 06:59 Intake Total 1299 ml Output Total 841 ml Balance 458 ml Constitutional Vital Signs Date Time Temp Pulse Resp B/P (MAP) Pulse Ox O2 Delivery O2 Flow Rate FiO2 10/18/16 09:02 97 55 10/18/16 08:00 99.8 115 20 158/85 (109) 90 10/18/16 08:00 115 10/18/16 08:00 55 10/18/16 06:00 117 10/18/16 05:27 117 160/90 10/18/16 04:00 55 10/18/16 04:00 117 10/18/16 04:00 98.7 117 20 166/90 (115) 95 10/18/16 03:51 93 55 10/18/16 03:39 117 169/94 10/18/16 03:37 116 167/92 10/18/16 02:00 116 10/18/16 00:10 94 55 10/18/16 00:02 117 167/95 10/18/16 00:00 55 10/18/16 00:00 99.0 117 20 167/94 (118) 94 10/18/16 00:00 117 10/17/16 22:00 114 10/17/16 21:11 114 161/87 10/17/16 21:10 112 161/81 10/17/16 20:00 55 10/17/16 20:00 114 10/17/16 20:00 98.8 114 20 162/90 (114) 93 10/17/16 19:55 93 55 10/17/16 19:55 114 161/88 10/17/16 18:00 108 10/17/16 17:33 92 55 10/17/16 16:45 96 10/17/16 16:00 55 10/17/16 16:00 98.6 104 20 157/90 (112) 91 10/17/16 16:00 104 10/17/16 14:00 117 10/17/16 12:00 98.6 121 20 165/97 (119) 94 10/17/16 12:00 121 10/17/16 12:00 55 10/17/16 11:55 92 55 10/17/16 10:00 118 10/19/16 06:59 Intake Total 1299 ml Output Total 841 ml Balance 458 ml (Malinda Hines) Review of Systems ROS Limitations: Clinical Condition, Intubated (Malinda Hines) Physical Exam Intubated and sedated Left flap full slightly taught to palpate Surgical wound healing well, no evidence of infection CN: pupils 3-4 mm nonreactive b/l, eyes appears conjugated Motor: no response to pain stimuli x 4 extremities. No spontaneous movements Reflexes: Plantars silent b/l Sensory: no response to painful stimuli Cerebellar: cannot assess due to clinical condition (Malinda Hines) Medications Current Medications Current Medications Medications (Trade) Dose Ordered Sig/Adali Route PRN Reason Start Time Stop Time Status Last Admin Dose Admin Albuterol/ Ipratropium (Duoneb Neb) 1 ampule Q4HR NEB PRN INH SHORTNESS OF BREATH 10/07/16 16:15 10/14/16 19:33 Chlorhexidine Gluconate (Peridex 0.12% Liq) 15 ml BID@08,20 MT 10/07/16 20:00 10/18/16 07:24 Miscellaneous Information 1 [id number] XX 10/07/16 16:15 Chlorhexidine Gluconate (Chlorhexidine 2% Cloth) Taper DAILY@04 TOP 10/08/16 04:00 10/04/17 03:59 10/18/16 03:40 Chlorhexidine Gluconate (Chlorhexidine 2% Cloth) 3 pack UNSCH PRN TOP HYGIENIC CARE 10/07/16 16:15 Insulin Aspart (NovoLOG SUPPLEMENTAL SCALE) 1 Q6HR SQ 10/07/16 18:00 10/16/16 18:00 IV Flush (NS Flush) 2 ml UNSCH PRN IVF FLUSH AFTER USING IV ACCESS 10/07/16 18:30 IV Flush (NS Flush) 2 ml BID IVF 10/07/16 21:00 10/16/16 20:22 Levetriacetam 500 mg/Sodium Chloride 105 ml @ 400 mls/hr Q12H IV 10/08/16 06:00 10/18/16 05:28 Bisacodyl (Dulcolax Supp) 10 mg DAILY PRN RECTAL CONSTIPATION 10/07/16 18:30 Docusate Sodium (Colace) 100 mg BID PO 10/07/16 21:00 10/18/16 08:52 Pantoprazole Sodium (Protonix) 40 mg DAILY PO 10/08/16 09:00 10/14/16 07:47 Ondansetron HCl (Zofran Inj) 4 mg Q6H PRN IV NAUSEA OR VOMITING 10/07/16 18:30 Calcium Gluconate (Calcium Gluconate Inj) 1 gm UNSCH PRN IV SEE LABEL COMMENTS 10/07/16 18:30 10/16/16 10:00 Potassium Chloride 100 ml @ 50 mls/hr UNSCH PRN IV POTASSIUM LESS THAN 4 10/07/16 18:30 10/12/16 06:13 Magnesium Sulfate 4 gm/Sodium Chloride 108 ml @ 108 mls/hr UNSCH PRN IV MAGNESIUM LESS THAN 2 10/07/16 18:30 Acetaminophen (Tylenol) 650 mg Q4H PRN PO TEMP >100.4 10/07/16 18:30 10/12/16 18:15 Dextrose (D50w (Vial) Inj) 50 ml UNSCH PRN IV PUSH HYPOGLYCEMIA - SEE COMMENTS 10/07/16 19:15 Glucagon (Glucagon Inj) 1 mg UNSCH PRN OTHER HYPOGLYCEMIA-SEE COMMENTS 10/07/16 19:15 Propofol 100 ml @ 0 mls/hr TITRATE PRN IV Sedation 10/07/16 23:15 10/14/16 20:29 Nimodipine (Nimotop) 60 mg Q4HR PO 10/13/16 00:00 10/18/16 07:34 Vasopressin 40 units/Dextrose 100 ml @ 4.5 mls/hr [id number] IV 10/14/16 11:30 10/18/16 05:27 Fentanyl Citrate 250 ml @ 5 mls/hr TITRATE PRN IV SEDATION 10/14/16 15:00 10/18/16 05:27 Terbutaline Sulfate (Brethine Inj) 1 mg UNSCH PRN SQ For Extravasation 10/14/16 14:45 Midazolam HCl 100 ml @ 2 mls/hr TITRATE PRN IV SEDATION 10/14/16 15:00 10/17/16 00:11 Heparin Sodium (Porcine) (Heparin Inj) 5,000 units Q8HR SQ 10/14/16 22:00 10/18/16 05:28 Isoproterenol HCl 2 mg/Dextrose 260 ml @ 23.4 mls/hr TITRATE PRN IV Hypotension 10/14/16 21:00 Future Hold 10/14/16 21:26 Epoprostenol Sodium 75 ml/ Sodium Chloride 100 ml @ 8 mls/hr Q8H NEB 10/15/16 03:00 10/18/16 05:26 Fosphenytoin Sodium (Cerebyx Inj) 100 mgpe Q8HR IV 10/15/16 10:00 10/18/16 05:28 Albuterol/ Ipratropium (Duoneb Neb) 1 ampule Q4HR WHILE AWAKE NEB NEB 10/15/16 08:00 10/18/16 08:48 Hydrocortisone Sodium Succinate (SoluCORTEF INJ) 100 mg Q8H IV PUSH 10/15/16 04:00 10/18/16 03:34 Sodium Chloride 500 ml @ 20 mls/hr CONTINUOUS IV 10/15/16 08:00 10/16/16 20:18 Cisatracurium Besylate 100 mg/ Sodium Chloride 260 ml @ 11.24 mls/ hr TITRATE PRN IV TOF 1/4 10/15/16 13:00 10/18/16 08:50 Sodium Chloride (Sodium Chloride) 3 gm TID PO 10/15/16 13:15 10/18/16 08:52 Terbutaline Sulfate (Brethine Inj) 1 mg UNSCH PRN SQ FOR EXTRAVASATION PROTOCOL 10/15/16 15:45 Magnesium Oxide (Mag-Ox) 800 mg UNSCH PRN PO For Magnesium 1.2 - 1.6 mg/dL 10/16/16 09:15 Magnesium Sulfate 4 gm/Sodium Chloride 100 ml @ 50 mls/hr UNSCH PRN IV For Magnesium 0.9 - 1.1 mg/dL 10/16/16 09:15 Magnesium Sulfate 2 gm/Sodium Chloride 100 ml @ 50 mls/hr UNSCH PRN IV For Magnesium 1.2 - 1.6 mg/dL 10/16/16 09:15 Potassium Chloride 100 ml @ 50 mls/hr Q2H PRN IV For Potassium 2.8 - 3.2 mEq/L 10/16/16 09:15 10/16/16 12:22 Potassium Chloride 100 ml @ 50 mls/hr Q2H PRN IV For Potassium 3.3 - 3.5 mEq/L 10/16/16 09:15 Potassium Chloride 100 ml @ 50 mls/hr Q2H PRN IV For Potassium 2.8 - 3.2 mEq/L 10/16/16 09:15 10/16/16 20:18 Potassium Chloride 100 ml @ 25 mls/hr UNSCH PRN IV For Potassium 3.3 - 3.5 mEq/L 10/16/16 09:15 10/18/16 07:34 Potassium Phosphate (K-Phos) 2,000 mg Q4H PRN PO For Phosphorus < 2.5 mg/dL 10/16/16 09:15 Potassium Phosphate (K-Phos) 2,000 mg UNSCH PRN PO/TUBE SEE LABEL COMMENTS 10/16/16 09:15 Potassium Phosphate 30 mmol/ Sodium Chloride 260 ml @ 42 mls/hr UNSCH PRN IV SEE LABEL COMMENTS 10/16/16 09:15 Sodium Phosphate 30 mmol/Sodium Chloride 250 ml @ 42 mls/hr UNSCH PRN IV For Phosphorus < 2.5 mg/dL 10/16/16 09:15 Norepinephrine Bitartrate 16 mg/ Sodium Chloride 250 ml @ 1.87 mls/hr TITRATE PRN IV Blood pressure management 10/17/16 10:15 10/18/16 03:37 Phenylephrine HCl 160 mg/Dextrose 500 ml @ 7.5 mls/hr TITRATE PRN IV Blood Pressure Management 10/17/16 10:15 Epinephrine HCl 8 mg/Dextrose 250 ml @ 5.62 mls/hr TITRATE PRN IV Blood Pressure Management 10/17/16 11:15 10/18/16 03:39 (Malinda Hines) Medical Decision Making MDM Remarks 56 y/o male with 1. Subarachnoid hemorrhage, status post coiling posterior communicating artery aneurysm. s/p left decompressive craniectomy Vasospasms, s/p endovascular verapamil infusions 10/13/16, 10/17/16 2. Possible seizures. Remains on Keppra and Cerebyx 3. Respiratory failure with worsening pneumonia (Malinda Hines) Plan Plan Remarks continue neuro checks, follow-up TCD today. f/u CT Head yesterday shows increased cerebral edema. cont 3% NS. cont HHH therapy for vasospasms. Keep SBP around 160-180 daily PT and OT cont Protonix for stress ulcer prophylaxis continue TEDs and SCD's for DVT prophylaxis cont antiepileptic drugs for seizures (Malinda Hines) Attending Statement The exam, history, and the medical decision-making described in the above note were completed with the assistance of the mid-level provider. I reviewed and agree with the findings presented. I attest that I had a [id number] encounter with the patient on the same day, and personally performed and documented my assessment and findings in the medical record. (George Perry MD) Malinda Hines Oct 18, 2016 09:45 George Perry MD Oct 30, 2016 21:56
[2016-10-18] MEDS: 3% SALINE INJ 500 ML IV SCH (13:33)
[2016-10-18] MEDS: MILRINONE INJ 20 MG in SODIUM CHLORIDE 0.9% INJ 80 ML IV SCH ×2 (17:24→20:57)
[2016-10-18] MEDS: PHENYLEPHRINE INJ 160 MG in DEXTROSE 5% IN WATE 500 ML INJ 484 ML IV PRN ×2 (18:16)
[2016-10-19] VITALS (20 sets, daily range): BP systolic 132–167; BP diastolic 67–95; PULSE 102–124; RESP 20–23; TEMP 98.9–101.1; O2SAT 91–100
[2016-10-19] MEDS: niMODipine 30 MG CAP PO SCH ×6 (00:19→19:53)
[2016-10-19] MEDS: fentaNYL DRIP 250 ML IV PRN (00:20)
[2016-10-19] MEDS: PHENYLEPHRINE INJ 160 MG in DEXTROSE 5% IN WATE 500 ML INJ 484 ML IV PRN ×6 (02:24→19:52)
[2016-10-19] MEDS: NOREPINEPHRINE INJ 16 MG in SODIUM CHLOR 0.9% 250 ML INJ 234 ML IV PRN (02:25)
[2016-10-19] MEDS: EPINEPHrine (1:1000) INJ 8 MG in DEXTROSE 5% IN WATER INJ 242 ML IV PRN ×6 (02:27→19:52)
[2016-10-19] MEDS: CHLORHEXIDINE GLUCONATE 2 % 1 PACK (2 CLOTHS) TOP SCH (03:13)
[2016-10-19] MEDS: HYDROCORTISONE SOD SUCCINATE 100 MG VIAL IV PUSH SCH ×3 (03:13→19:52)
[2016-10-19] MEDS: HEPARIN SODIUM - SQ 10,000 UNITS/ML VIAL SQ SCH ×3 (05:26→23:08)
[2016-10-19] MEDS: FOSPHENYTOIN SODIUM 100 MG PE/2 ML VIAL IV SCH ×3 (05:26→23:07)
[2016-10-19] MEDS: levETIRAcetam INJ 500 MG in SODIUM CHLORIDE 0.9% INJ 100 ML IV SCH ×2 (05:26→17:37)
[2016-10-19] MEDS: INSULIN ASPART SUPPLEMENTAL SCALE SQ SCH ×4 (06:00→17:37)
[2016-10-19 06:01] LABS: HEMATOCRIT 21.9 % (39.0-51.0); MEAN CELL VOLUME 97.2 FL (80.0-100.0); MEAN CORPUSCULAR HEMOGLOBIN 32.2 PG (27.0-34.0); MEAN CORPUSCULAR HGB CONC 33.1 % (32.0-36.0); PLATELET COUNT 243 TH/MM3 (150-450); RED BLOOD COUNT 2.25 MIL/MM3 (4.50-5.90); RED CELL DISTRIBUTION WIDTH 13.2 % (11.6-17.2); REVIEW FLAG FINAL; WHITE BLOOD COUNT 20.9 TH/MM3 (4.0-11.0)
--- NOTE | 2016-10-19 06:22 | RADRPT ---
EXAM DATE/TIME: 10/19/2016 04:49 [facility] COMPARISON: CHEST SINGLE AP, October 17, 2016, 5:27. INDICATIONS : Shortness of breath. MEDICAL HISTORY : Seizures. SURGICAL HISTORY : None. ENCOUNTER: Subsequent ACUITY: 1 week PAIN SCORE: Non-responsive. LOCATION: Bilateral chest FINDINGS: Stable ETT, right IJ central line, and NGT coursing beyond the GE junction with tip limited from the image. Redemonstration of bilateral lower lung zone patchy airspace disease. Small right and trace le ft pleural effusion. Cardiothymic contours are stable. Remainder of the exam is unchanged. CONCLUSION: 1. Stable tubes and lines, as above. 2. Stable bilateral mid to lower lung zone airspace disease. 3. Stable trace left and small right pleural effusions. 4. No significant interval change. Kev Vergara MD on October 19, 2016 at 6:18 Board Certified Radiologist. This report was verified electronically.
[2016-10-19 06:36] LABS: ALKALINE PHOSPHATASE 125 U/L (45-117); ALT (GPT) 267 U/L (12-78); ANION GAP 7 MEQ/L (5-15); AST (GOT) 390 U/L (15-37); BICARBONATE 26.5 MEQ/L (21.0-32.0); BLOOD UREA NITROGEN 21 MG/DL (7-18); CHLORIDE 110 MEQ/L (98-107); GLOMERULAR FILTRATION RATE 135 ML/MIN (>89); POTASSIUM 3.8 MEQ/L (3.5-5.1); SODIUM (NA) 143 MEQ/L (136-145); TOTAL BILIRUBIN ADULT 0.4 MG/DL (0.2-1.0)
[2016-10-19] MEDS: EPOPROSTENOL NEB SOLUTION 50 NG/KG/MIN 100 ML NEB SCH ×6 (06:49→19:51)
[2016-10-19] MEDS: MILRINONE INJ 20 MG in SODIUM CHLORIDE 0.9% INJ 80 ML IV SCH ×3 (06:57→22:34)
[2016-10-19] MEDS: CHLORHEXIDINE 0.12% (ORAL KIT) 15 ML CUP MT SCH ×2 (08:00→19:52)
[2016-10-19] MEDS: DOCUSATE SODIUM 100 MG CAP PO SCH (09:00)
[2016-10-19] MEDS: SODIUM CHLORIDE 0.9% FLUSH 5 ML FLUSH IVF SCH (09:00)
[2016-10-19] MEDS: SODIUM CHLORIDE 1 GRAM TAB PO SCH ×3 (09:05→17:37)
[2016-10-19] MEDS ORDERED: MISCELLANEOUS NURSING INFORMATION XX SCH (09:45)
[2016-10-19] MEDS ORDERED: ONDANSETRON HCL 4 MG/2 ML VIAL IV PRN (09:45)
[2016-10-19] MEDS ORDERED: CHLORHEXIDINE GLUCONATE 2 % 1 PACK (2 CLOTHS) TOP PRN (09:45)
[2016-10-19] MEDS ORDERED: SODIUM CHLORIDE 0.9% FLUSH 10 ML FLUSH IV FLUSH PRN (09:45)
--- NOTE | 2016-10-19 10:11 | HHI.CCPN ---
Subjective Remarks/Hospital Course 10/07: 56-year-old male presents with intracranial bleed. Patient was transferred from [facility] at [facility]. As per the paramedics and the nurse who assisted the patient said that patient earlier this morning was coming down the stairs when he started feeling some left-sided weakness and numbness. He called 911 and by the time EMS arrived they detected some deficit and called a stroke alert. Patient was taken to [facility]. When patient arrived his mental status started to decline and he was intubated emergently in the ER. A CAT scan of the head showed subarachnoid and subdural bleed. He was taking emergently to an angio suite for coiling of the aneurysm and later on to OR for subdural hematoma evacuation. 10/08: Remains sedated, orally intubated on mechanical ventilation. Arouses off sedation and following commands with both upper extremities earlier. Ventriculostomy in place. ICP 7, CPP mid 80s. 10/09: Remains sedated, orally intubated on mechanical ventilation. Arouses off sedation and follows commands with both upper extremities. Ventriculostomy in place. 10/10: Remains sedated, orally intubated on mechanical ventilation. Arouses off sedation and follows commands and both upper extremities. Ventriculostomy in place. ICP 5. Failed C Pap trial yesterday. 10/11: Extubated on 10/10, tolerating well. Awake and alert. Appears confused, moving all 4 extremities. Ventriculostomy discontinued today by neurosurgery 10/13: Patient has developed severe vasospasm at the left MCA territory on TCD's that was treated with IV route verapamil 10/14: patient extubated overnight. was originally following commands and neuro intact. TCDs this morning with increase LIs over yesterday, particularly Left MCA territory. On my evaluation early this morning, patient was aphasic, not moving the right side of his body, not following commands. SBP 140s at that time. net 2L negative/24h and uop almost 1L/hr at the time. I immediately bolused with 2L NS iv, placed arterial and central lines, started phenylephrine , increased SBP to goal 200 - 220 mmHg. called interventional neuroradiology and accompanied patient down personally to IR for IA verapamil again. I remained with the patient managing his hemodynamics down in IR and providing anxiolysis IV. I accompanied patient back up to [facility] where patient again was neuro intact and following commands. Sodium downtrending to 135 and urine studies and serum osms suggestive of urine sodium losses and high uop. added Florinef to mitigate sodium losses, and increased mivf to 500cc/hr to maintain euvolemia. later in the day patient decompensated requiring intubation for hyoxemia, cxr suggestive of pulmonary edema. 2d echo with evidence of EF 40%, septal hypokinesis, moderate MR. On levo, vaso, phenylephrine. difficult to get to goal SBP 200 mmHg, likely due to myocardial dysfunction. decreased goal to 180 - 200 mmHg to balance cardiac vs. neurologic goals. 10/15 Patient was discussed with Dr. Sullivan at shift change. Isuprel was initiated in effort to improve cardiac output as dobutamine not available and concerned with use of milrinone given long half life. Systolic blood pressure was relatively stable with perhaps some modest improvement from 170s to 180s for several hours after initiation. Notified when patient became abruptly hypotensive despite vasopressin, levophed 20 mcg/min, Greyson-Synephrine 300 mcg/m. He was also hypoxemic with sats in 80s despite PCV with PEEP 8 and FiO2 100%, respiratory rate in the 30s. He had decreased breath sounds bilaterally and was concerned for air trapping so removed from mechanical ventilation and bagged without improvement. Placed patient back on mechanical ventilation and provide recruitment maneuvers and increased PEEP to 12 which resulted in improvement of sats to 88% to 92%. Ordered Flolan. Discontinued isuprel and initiated epinephrine. R radial art line would not draw blood . Performed u/s guided femoral artery stick to confirm hypoxemia on ABG given poor wave form on pulse ox and PaO2 was 58. Placed new L radial art line and this resulted in ~ 30 point increase in SBP relative to prior line but patient ultimately on vasopressin, levophed 30 micrograms per minute, Greyson-Synephrine 300 micrograms per minute, epinephrine 12 mcg/min and unable to maintain target pressure (SBP in 150s). Given calcium chloride. patient with shaking movements all extremities, pupils 2mm and sluggish, no eye deviation. Rigors seemed most likely but unable to emergently rule out seizures so loaded with fosphenytoin to avoid secondary injury from seizure activity. WBC increasing and concern for HCAP so pancultured and placed on cefepime, vancomycin, azithromycin. Hydrocortisone 100 mg IV every 8 hours initiated due to concern for septic shock in a patient who has been refractory to all other above measures. Patient is to hemodynamically unstable and hypoxic for transport for neurologic imaging. Urine output has declined to 180-200 ML's per hour. Back off maintenance IV fluids to 200 ML's per hour. Bedside echo demonstrates decreased LV function with normal RV contractility and collapsible IVC suggesting ongoing maintenance fluid administration is appropriate. 10/15 additional visit: continued to deteriorate throughout the day. Seen multiple times. hypoxic on 100% fio2, flolan. required nimbex drip to maintain. repeat bedside critical care ultrasound still demonstrates severe LV dysfunction , decompressed RV, IVC more dilated than previous echo overnight, however still with respiratory variation. femoral arterial line placed with better waveform and higher pressure (likely SVR too high to allow accurate measurement of radial pressure). Pulse contour analysis without stroke volume variation, CI 3.6. SV 52mL. trialed additional albumin without improvement in hemodynamics. uop slower than before, but still significant salt wasting in the urine- sodium dropped to 125 from 132 despite already on 3% nacl infusion and aggressive sodium replacements. forced to give 23% nacl and salt tabs. declining clinically despite maximal therapy. 10/16: continues to be maximally critically ill. LV dysfunction persists. starting to get volume overloaded, but given concern for ongoing cerebral vasospasm, unable to actively diurese patient. sodium wasting persists, but uop downtrending slightly. very hypokalemic today, likely due to steroids. remains intubated, sedated, paralyzed, on flolan. CXR today appears worse with worsening airspace disease. Lactate remains slightly elevated, confirming persistent shock. 10/17: Lung infiltrates dense bilaterally, reflected in shunting and problems with oxygenation. Developed vasospasm on TCDs and required angiogram and intra- arterial verapamil again today. 10/18: SBP 160 - 170 range. FiO2 0.55. BNP > 5000. Not tolerating attempts at maintaining higher BP due to worsening heart failure. Several episodes of vasospasm. Watch daily TCDs closely. Sputum no growth. Subjective 10/19: Tmax 99.8. Currently 99. Remains on 4 vasopressors and epoprostenol Objective Vital Signs Date Time Temp Pulse Resp B/P (MAP) Pulse Ox O2 Delivery O2 Flow Rate FiO2 10/19/16 08:49 92 55 10/19/16 06:57 114 149/82 10/19/16 04:00 101.1 20 Intake and Output 10/19/16 10/19/16 10/20/16 08:00 16:00 00:00 Intake Total 1237 ml Output Total 730 ml Balance 507 ml Result Diagram: 10/19/16 0550 10/19/16 0550 Other Results Microbiology Date/Time Source Procedure Growth Status 10/15/16 04:29 Blood Peripheral Aerobic Blood Culture - Preliminary NO GROWTH IN 3 DAYS Resulted 10/15/16 04:29 Blood Peripheral Anaerobic Blood Culture - Preliminary NO GROWTH IN 3 DAYS Resulted 10/15/16 05:35 Sputum Endotracheal Gram Stain - Final Resulted 10/15/16 05:35 Sputum Endotracheal Sputum Culture - Preliminary MODERATE GROWTH NORMAL RESPIRATORY FL... Resulted Imaging Last Impressions Chest X-Ray 10/19/16 0400 Signed Impressions: Service Date/Time: Wednesday, October 19, 2016 04:49 - CONCLUSION: 1. Stable tubes and lines, as above. 2. Stable bilateral mid to lower lung zone airspace disease. 3. Stable trace left and small right pleural effusions. 4. No significant interval change. Kev Vergara MD Transcranial Doppler Study Complete 10/18/16 0600 Signed Impressions: Service Date/Time: Tuesday, October 18, 2016 07:56 - CONCLUSION: 1. Good response to spasmolysis involving the left middle cerebral artery with only mild spasm present Harvey Morejon MD Head CT 10/17/16 0000 Signed Impressions: Service Date/Time: Monday, October 17, 2016 15:06 - CONCLUSION: Ventricles are slightly larger without ventriculostomy. Edema in the left hemisphere the brain herniating through the operative site. Remington Woodward MD FACR Cerebral Arteriogram 10/17/16 0000 Signed Impressions: Service Date/Time: Monday, October 17, 2016 00:00 - CONCLUSION: 1. Uncompensated spasmolysis of the left middle cerebral artery Harvey Morejon MD Infusion Non-thrombolysis 10/14/16 1103 Signed Impressions: Service Date/Time: Friday, October 14, 2016 10:21 - CONCLUSION: 1. Uncomplicated infusion for spasmolysis Harvey Morejon MD Neck CTA 10/07/16 0000 Signed Impressions: Service Date/Time: Friday, October 07, 2016 15:03 - CONCLUSION: 1. Mild carotid bulb atherosclerotic calcification bilaterally. However, no significant stenosis is present in either internal carotid artery. 2. Paranasal sinus mucoperiosteal thickening. 3. Please refer to brain CTA report for description of the intracranial findings. Yosvany Ramirez MD Head CTA 10/07/16 0000 Signed Impressions: Service Date/Time: Friday, October 07, 2016 15:03 - CONCLUSION: 1. 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 2. Large left subdural hematoma measuring 1.3 cm in depth with a significant, 1.6 cm left to right subfalcine shift. Joni Shelton MD Objective Remarks GENERAL: 56-year-old male, currently sedated and paralyzed and orotracheally intubated/critically ill HEAD: Status post left craniectomy. Incision is clean dry and intact without EYES: About 4 mm bilaterally and questionably reactive NECK: Supple, trachea midline. orotracheal tube in place. CARDIOVASCULAR: Tachycardic, RR. S1, S2. No S4. 2/6 murmur left lower sternal border RESPIRATORY: Coarse rhonchorous breath sounds are appreciated bilaterally anterior-posterior. Diminished breath sounds bilateral lower lobes. GASTROINTESTINAL: Abdomen soft, non-tender, nondistended. Hypoactive bowel sounds are appreciated MUSCULOSKELETAL: Ischemic changes to left index, right fourth and fifth digits. Well-perfused. NEURO EXAM: RASS -3. On cisatracurium drip [id number] 4 out of 4/not paralyzed. Despite that has a gag and a cough this morning. Procedures 10/13 Four-vessel cerebral angiography with verapamil treatment of vasospasm Urinary Catheter: Yes Assessment to: Continue Maldonado insert reason: Prolonged Immobilization Vascular Central Line Catheter: Yes Assessment to: Continue Date of Insertion: Oct 14, 2016 Line: Central Venous Catheter Side: Right Location: Subclavian A/P Assessment and Plan Neuro/Psych Status post left frontotemporal parietal craniectomy 10/08 for evacuation subdural hematoma/duraplasty Left subdural hematoma - 1.3 cm with 1.6 shift left to right Subarachnoid hemorrhage contents 5, Carroll grade 4 - left P-comm status post 4 coiling 10/08 - TCD's daily: 10/18 - no minimal vasospasm - Nimodipine 60 mg every 4 hours for vasospasm comes 21 days. Initiate 10/13 - Levetiracetam 500 mg IV twice a day for seizure prophylaxis - 10/13 and 10/14 and 10/17 left MCA territory vasospasm, status post successful verapamil treatment by IR with 20 mg verapamil - SBP goal 180 - 220 mmHg, although only able to press to 150 on maximal therapy given cardiac dysfunction. - check dilantin level -> 7. - 10/17 CT brain - less hemisphere edema with herniation through left craniotomy site - Dr. Perry/neurosurgery - Currently cisatracurium drip at 1 g per kilo per minute titrate to maintain [id number] 2 out of 4 Respiratory: Acute hypoxic Respiratory failure-ARDS Noncardiogenic/neurogenic pulmonary edema - pulmonary edema, may be non-cardiogenic/neurogenic from SAH/vasospasm. cannot diurese due to active cerebral vasospasm. - [facility] /[birth year] - Ventilator bundle - Albuterol/age-appropriate versus every 6 hours with albuterol aerosols every 2 hours. Dyspnea - Epoprostenol 50 ng/kg/min aerosolized continue - Currently on a taper prone therapy due to subarachnoid hemorrhage/cardiac dysfunction - Follow-up ABG/chest x-ray in a.m. Cardiovascular: Severe shock - septic and cardiogenic Severe LV dysfunction secondary to SAH Elevated troponin- secondary to SAH, unlikely to be ACS. Pulmonary hypertension -Currently on phenylephrine at 300 g/norepinephrine 18 mg a minute, vasopressin 0.04 units a minute, epinephrine at 20 mg a minute to maintain to start blood pressure greater than 150 Continue stress dose hydrocortisone 100 mg IV every 8 hours - On milrinone 0.5 mics per kilogram per minute - goal euvolemia Currently off maintenance IV fluids Still unable to diurese - troponin elevation peak 4.71 likely secondary to his cardiac dysfunction secondary to SAH. unlikely to be ACS, and at this point unable to evaluate or intervene on coronary ischemia given how critically ill he is. Echocardiogram 10/14/16 revealed EF 40-45%. Septal hypokinesis. Moderate MR. Severe pulmonary hypertension with pulmonary artery pressures estimated 61 mmHg Renal: Cerebral Salt Wasting/SIADH - q1h uop -- Strict I/Os - BNP > 5000 on 10/18 FEN/GI: Severe hyponatremia Hypokalemia Elevated transaminases -Currently on sodium chloride 3gm po TID - 3% NaCl 30cc/hr. - serial sodiums every 6 hours - ICU electrolyte protocol - aggressively replace potassium losses. - NPO while in shock - Lansoprazole 30 mg by tube daily for GI prophylaxis -Docusate sodium 100 mg twice a day, senna liquid 8.6 mg twice a day and polyethylene glycol 3350 17 g twice a day for bowel regimen Check liver ultrasound. Recheck LFTs in a.m. Likely secondary to hypoperfusion /shock Heme/ID: Septic Shock Possible HCAP -10/18 d/c empiric abx: vancomycin, cefepime, azithromycin. Will antonio culture again today and restart antibiotics with vancomycin, piperacillin/tazobactam Pertinent cultures 10/15 - blood cultures 2 - no growth 10/15 - sputum - no growth Endocrine: Presumed Adrenal Insufficiency -Discontinued fludrocortisone yesterday. Monitor sodium 6 hours. - Current hydrocortisone 100 mg every 8 hours. Sliding-scale insulin with Novulog -Accu-Cheks every 6 hours to maintain euglycemia Prophylaxis: GI Prophylaxis - lansoprazole DVT Prophylaxis-- SCDs, heparin subcutaneous Lines: - 10/14 right SC TLC - 10/14 right radial art line, removed 10/14 - 10/15 left radial art line, removed 10/16 - 10/15 left femoral art line - Maldonado Critical care time 30 minutes Cyrus Boland MD Oct 19, 2016 10:11
[2016-10-19 10:14] LABS: BLOOD GAS BASE EXCESS -1.6 mmol/L (-2-2); BLOOD GAS CARBOXYHEMOGLOBIN 1.2 % (0-4); BLOOD GAS HCO3 23 mmol/L (22-26); BLOOD GAS METHEMOGLOBIN 0.7 % (0-2); BLOOD GAS O2 HGB SATURATION 94 % (90-100); BLOOD GAS OXYGEN CONTENT 11.1 Vol % (12.0-20.0); BLOOD GAS PCO2 44 mmHg (38-42); BLOOD GAS PO2 81 mmHg (61-120); BLOOD GAS TOTAL HGB 8.3 G/DL (12.0-16.0); TEMP CORR TO 98.6
[2016-10-19 10:15] LABS: CRITICAL VALUE NO; DRAW SITE ART LINE; FIO2 55 %; NUMBER OF ARTERIAL PUNCTURES 0; OXYGEN DEVICE VENTILATOR; STAT NO; ULNAR PULSE PRESENT; VENT SETTINGS PRVC/20/650/1.0/+12
[2016-10-19] MEDS ORDERED: Vancomycin Consult Pharmacy 1 EA OTHER SCH (10:15)
[2016-10-19 11:13] LABS: APTT (PATIENT) 30.8 SEC (24.3-30.1); INTERNATIONAL NORMALIZED RATIO 1.2 RATIO; PROTHROMBIN TIME - PATIENT 13.4 SEC (9.8-11.6)
[2016-10-19 11:14] LABS: MAGNESIUM 2.3 MG/DL (1.5-2.5)
[2016-10-19] MEDS: CISATRACURIUM INJ 100 MG in SODIUM CHLOR 0.9% 250 ML INJ 250 ML IV PRN ×2 (11:33→21:28)
[2016-10-19] MEDS: RESP: ALBUTEROL 2.5 MG/IPRATROPIUM 0.5 MG NEB (SCH) INH ×3 (12:00→20:40)
[2016-10-19] MEDS ORDERED: LANSOPRAZOLE SOLUTAB 30 MG TAB NG ONE (12:00)
--- NOTE | 2016-10-19 12:04 | RADRPT ---
EXAM DATE/TIME: 10/19/2016 08:02 [facility] COMPARISON: No previous studies available for comparison. INDICATIONS : Subarachnoid hemorrhage. MEDICAL HISTORY : Subarachnoid hemorrhage. Hypertension. Respiratory failure. SURGICAL HISTORY : Left craniotomy. Ventriculostomy catheter. ENCOUNTER: Subsequent ACUITY: 2 weeks PAIN SCORE: Nonresponsive. LOCATION: Bilateral cranial Current Exam: Oct 19, 2016 [place] Ratio: Right: 4.9 Left: 2.3 [place] Ratio: Right: 2.4 Left: 1.8 Previous Exam: Oct 18, 2016 [place] Ratio: Right: 2.6 Left: 3.2 [place] Ratio: Right: 1.8 Left: 2.2 FINDINGS: Examination performed at bedside. Real-time ultrasound with the assistance of color and spectral Dop pler was utilized to evaluate the intracerebral circulation. Time-averaged maximal velocities are ca lculated in cm/s. Interval elevation of the velocities and indices in the right MCA territory consistent with developin g vasospasm. CONCLUSION: Suspect developing right MCA vasospasm Yosvany Polk MD on October 19, 2016 at 11:54 Board Certified Radiologist. This report was verified electronically.
[2016-10-19] MEDS: PIPERACIL-TAZO 4.5 GM PREMIX 100 ML IV SCH ×2 (12:11→17:37)
[2016-10-19] MEDS ORDERED: VERAPAMIL HCL 5 MG/2 ML VIAL ONE ×2 (12:44)
--- NOTE | 2016-10-19 12:47 | RADRPT ---
EXAM DATE/TIME: 10/19/2016 11:20 [facility] COMPARISON: No previous studies available for comparison. INDICATIONS : Abnormal labs. MEDICAL HISTORY : Seizures. Subarachnoid hemorrhage. Hypertension. Respiratory failure. SURGICAL HISTORY : Left craniotomy. Ventriculostomy catheter. ENCOUNTER: Initial ACUITY: 1 day PAIN SCORE: Nonresponsive. LOCATION: Bilateral upper quadrant MEASUREMENTS: LIVER: 15.3 cm length COMMON DUCT: 5 mm RIGHT KIDNEY: 11.4 x 4.9 x 6.3 cm SPLEEN: 10.2 cm length FINDINGS: Moderate-sized bilateral pleural effusions and a small amount of ascites about the liver. LIVER: Normal echotexture without focal lesion or ductal dilatation. Hepatopedal flow seen the portal vein. COMMON DUCT: No intraluminal mass or stone visualized. GALLBLADDER: No shadowing stones seen. The gallbladder lumen is filled with echogenic material characteristic of sludge. Gallbladder wall is thickened at 7 mm. No pericholecystic fluid. PANCREAS: The visualized portions are within normal limits. RIGHT KIDNEY: No hydronephrosis, stone or mass. SPLEEN: No focal lesion. CONCLUSION: 1. Sludge filled gallbladder with thickened wall. 2. Moderate size bilateral pleural effusions and mild upper abdominal ascites. Santos Vazquez MD on October 19, 2016 at 12:43 Board Certified Radiologist. This report was verified electronically.
--- NOTE | 2016-10-19 12:57 | HHI.NSPN ---
(Malinda Hines) Note Status Status: Progress Note (Malinda Hines) Interval History Interval History This is a 56-year-old male brought to the emergency room as an emergency transfer from another institution with history of intracranial bleed. He was transferred from [facility] and [facility]. Apparently the patient said that patient earlier this morning was coming down the stairs when he started feeling some left-sided weakness and numbness. He called 911 and by the time EMS arrived they detected severe neurological deficits and called a stroke alert. No seizure activity reported. No tongue biting. No incontinence of stool or urine. Patient was taken to [facility]. Apparently he was not able to move his right side . When patient arrived his mental status started to decline and he was intubated emergently in the ER for airway protection. A CT scan of the head showed extensive subarachnoid bleed. In addition he had a sizable subdural hematoma. He was brought emergently on the ventilator. He was on a propofol drip and well sedated. GCS was 3. He was on a Cardene drip and blood pressure was in the 120s. Neurosurgical consultation was requested 10/08. POD #1 Open eyes and follows commands 10/12. Doing very well. Neurologically stable. Patient is in restraints secondary to pulling out his [place] multiple times. 10/13. Much more lethargic, difficult to speak with new aphasia 10/14. Improved after angiography. Today he developed new onset of aphasia and right hemiparesis 10/17. Intubated and sedated. Lung infiltrates dense bilaterally, reflected in shunting and problems with oxygenation. 10/18: underwent endovascular verapamil infusion to left MCA vasospasm yesterday. TCD today pending. left flap pak today. Intubated and sedated. continues to be on multiple pressors. on 3% NS. 10/19: currently unstable for travel for repeat CT Head this am. no changes with neuro checks, remains intubated, sedated. pupils equal. continues on multiple pressors support (Malinda Hines) Labs, Micro, & Vital Signs Results Date Time Temp Pulse Resp B/P (MAP) Pulse Ox O2 Delivery O2 Flow Rate FiO2 10/19/16 11:52 98 65 10/19/16 11:32 115 154/82 10/19/16 11:31 114 157/87 10/19/16 10:00 115 10/19/16 08:49 92 55 10/19/16 08:00 99.5 114 23 167/95 (119) 97 10/19/16 08:00 55 10/19/16 08:00 114 10/19/16 06:57 114 149/82 10/19/16 06:00 114 10/19/16 04:15 97 55 10/19/16 04:00 124 10/19/16 04:00 101.1 124 20 158/88 (111) 94 10/19/16 04:00 55 10/19/16 02:27 119 152/84 10/19/16 02:25 120 148/85 10/19/16 02:24 119 150/85 10/19/16 02:00 120 10/19/16 00:56 98 55 10/19/16 00:00 99.0 118 20 150/86 (107) 94 10/19/16 00:00 118 10/19/16 00:00 55 10/18/16 20:57 126 157/91 10/18/16 20:22 97 100 10/18/16 20:00 55 10/18/16 20:00 126 10/18/16 20:00 99.4 126 20 157/89 (111) 94 10/18/16 18:16 129 166/92 10/18/16 18:00 127 10/18/16 17:24 123 163/93 10/18/16 17:14 122 162/94 10/18/16 16:31 99 55 10/18/16 16:30 125 161/94 10/18/16 16:00 55 10/18/16 16:00 99.6 123 20 161/94 (116) 91 10/18/16 16:00 123 10/18/16 14:00 122 10/20/16 06:59 Intake Total 1010 ml Balance 1010 ml Constitutional Vital Signs Date Time Temp Pulse Resp B/P (MAP) Pulse Ox O2 Delivery O2 Flow Rate FiO2 10/19/16 11:52 98 65 10/19/16 11:32 115 154/82 10/19/16 11:31 114 157/87 10/19/16 10:00 115 10/19/16 08:49 92 55 10/19/16 08:00 99.5 114 23 167/95 (119) 97 10/19/16 08:00 55 10/19/16 08:00 114 10/19/16 06:57 114 149/82 10/19/16 06:00 114 10/19/16 04:15 97 55 10/19/16 04:00 124 10/19/16 04:00 101.1 124 20 158/88 (111) 94 10/19/16 04:00 55 10/19/16 02:27 119 152/84 10/19/16 02:25 120 148/85 10/19/16 02:24 119 150/85 10/19/16 02:00 120 10/19/16 00:56 98 55 10/19/16 00:00 99.0 118 20 150/86 (107) 94 10/19/16 00:00 118 10/19/16 00:00 55 10/18/16 20:57 126 157/91 10/18/16 20:22 97 100 10/18/16 20:00 55 10/18/16 20:00 126 10/18/16 20:00 99.4 126 20 157/89 (111) 94 10/18/16 18:16 129 166/92 10/18/16 18:00 127 10/18/16 17:24 123 163/93 10/18/16 17:14 122 162/94 10/18/16 16:31 99 55 10/18/16 16:30 125 161/94 10/18/16 16:00 55 10/18/16 16:00 99.6 123 20 161/94 (116) 91 10/18/16 16:00 123 10/18/16 14:00 122 10/20/16 06:59 Intake Total 1010 ml Balance 1010 ml (Malinda Hines) Review of Systems ROS Limitations: Clinical Condition, Intubated, Altered Mental Status (Malinda Hines) Physical Exam Intubated and sedated Left flap full softer to palpate today Surgical wound healing well, no evidence of infection CN: pupils 3-4 mm nonreactive b/l, eyes appears conjugated Motor: no response to pain stimuli x 4 extremities. No spontaneous movements Reflexes: Plantars silent b/l Sensory: no response to painful stimuli Cerebellar: cannot assess due to clinical condition (Malinda Hines) Medications Current Medications Current Medications Medications (Trade) Dose Ordered Sig/Adali Route PRN Reason Start Time Stop Time Status Last Admin Dose Admin Chlorhexidine Gluconate (Peridex 0.12% Liq) 15 ml BID@08,20 MT 10/07/16 20:00 10/19/16 08:00 Insulin Aspart (NovoLOG SUPPLEMENTAL SCALE) 1 Q6HR SQ 10/07/16 18:00 10/18/16 09:43 Levetriacetam 500 mg/Sodium Chloride 105 ml @ 400 mls/hr Q12H IV 10/08/16 06:00 10/19/16 05:26 Bisacodyl (Dulcolax Supp) 10 mg DAILY PRN RECTAL CONSTIPATION 10/07/16 18:30 Ondansetron HCl (Zofran Inj) 4 mg Q6H PRN IV NAUSEA OR VOMITING 10/07/16 18:30 Calcium Gluconate (Calcium Gluconate Inj) 1 gm UNSCH PRN IV SEE LABEL COMMENTS 10/07/16 18:30 10/16/16 10:00 Potassium Chloride 100 ml @ 50 mls/hr UNSCH PRN IV POTASSIUM LESS THAN 4 10/07/16 18:30 10/12/16 06:13 Magnesium Sulfate 4 gm/Sodium Chloride 108 ml @ 108 mls/hr UNSCH PRN IV MAGNESIUM LESS THAN 2 10/07/16 18:30 Acetaminophen (Tylenol) 650 mg Q4H PRN PO TEMP >100.4 10/07/16 18:30 10/12/16 18:15 Dextrose (D50w (Vial) Inj) 50 ml UNSCH PRN IV PUSH HYPOGLYCEMIA - SEE COMMENTS 10/07/16 19:15 Glucagon (Glucagon Inj) 1 mg UNSCH PRN OTHER HYPOGLYCEMIA-SEE COMMENTS 10/07/16 19:15 Propofol 100 ml @ 0 mls/hr TITRATE PRN IV Sedation 10/07/16 23:15 10/14/16 20:29 Nimodipine (Nimotop) 60 mg Q4HR PO 10/13/16 00:00 11/02/16 23:59 10/19/16 12:10 Vasopressin 40 units/Dextrose 100 ml @ 4.5 mls/hr [id number] IV 10/14/16 11:30 10/18/16 05:27 Fentanyl Citrate 250 ml @ 5 mls/hr TITRATE PRN IV SEDATION 10/14/16 15:00 10/19/16 00:20 Midazolam HCl 100 ml @ 2 mls/hr TITRATE PRN IV SEDATION 10/14/16 15:00 10/17/16 00:11 Heparin Sodium (Porcine) (Heparin Inj) 5,000 units Q8HR SQ 10/14/16 22:00 10/19/16 05:26 Epoprostenol Sodium 75 ml/ Sodium Chloride 100 ml @ 8 mls/hr Q8H NEB 10/15/16 03:00 10/19/16 06:49 Fosphenytoin Sodium (Cerebyx Inj) 100 mgpe Q8HR IV 10/15/16 10:00 10/19/16 05:26 Hydrocortisone Sodium Succinate (SoluCORTEF INJ) 100 mg Q8H IV PUSH 10/15/16 04:00 10/19/16 12:10 Sodium Chloride 500 ml @ 30 mls/hr CONTINUOUS IV 10/15/16 08:00 10/18/16 13:33 Cisatracurium Besylate 100 mg/ Sodium Chloride 260 ml @ 11.24 mls/ hr TITRATE PRN IV TOF 02/1610/15/16 13:00 10/19/16 11:33 Sodium Chloride (Sodium Chloride) 3 gm TID PO 10/15/16 13:15 10/19/16 12:10 Terbutaline Sulfate (Brethine Inj) 1 mg UNSCH PRN SQ FOR EXTRAVASATION PROTOCOL 10/15/16 15:45 Magnesium Oxide (Mag-Ox) 800 mg UNSCH PRN PO For Magnesium 1.2 - 1.6 mg/dL 10/16/16 09:15 Magnesium Sulfate 4 gm/Sodium Chloride 100 ml @ 50 mls/hr UNSCH PRN IV For Magnesium 0.9 - 1.1 mg/dL 10/16/16 09:15 Magnesium Sulfate 2 gm/Sodium Chloride 100 ml @ 50 mls/hr UNSCH PRN IV For Magnesium 1.2 - 1.6 mg/dL 10/16/16 09:15 Potassium Chloride 100 ml @ 50 mls/hr Q2H PRN IV For Potassium 2.8 - 3.2 mEq/L 10/16/16 09:15 10/16/16 12:22 Potassium Chloride 100 ml @ 50 mls/hr Q2H PRN IV For Potassium 3.3 - 3.5 mEq/L 10/16/16 09:15 Potassium Chloride 100 ml @ 50 mls/hr Q2H PRN IV For Potassium 2.8 - 3.2 mEq/L 10/16/16 09:15 10/16/16 20:18 Potassium Chloride 100 ml @ 25 mls/hr UNSCH PRN IV For Potassium 3.3 - 3.5 mEq/L 10/16/16 09:15 10/18/16 15:12 Potassium Phosphate (K-Phos) 2,000 mg Q4H PRN PO For Phosphorus < 2.5 mg/dL 10/16/16 09:15 Potassium Phosphate (K-Phos) 2,000 mg UNSCH PRN PO/TUBE SEE LABEL COMMENTS 10/16/16 09:15 Potassium Phosphate 30 mmol/ Sodium Chloride 260 ml @ 42 mls/hr UNSCH PRN IV SEE LABEL COMMENTS 10/16/16 09:15 Sodium Phosphate 30 mmol/Sodium Chloride 250 ml @ 42 mls/hr UNSCH PRN IV For Phosphorus < 2.5 mg/dL 10/16/16 09:15 Norepinephrine Bitartrate 16 mg/ Sodium Chloride 250 ml @ 1.87 mls/hr TITRATE PRN IV Blood pressure management 10/17/16 10:15 10/19/16 02:25 Phenylephrine HCl 160 mg/Dextrose 500 ml @ 7.5 mls/hr TITRATE PRN IV Blood Pressure Management 10/17/16 10:15 10/19/16 11:32 Epinephrine HCl 8 mg/Dextrose 250 ml @ 5.62 mls/hr TITRATE PRN IV Blood Pressure Management 10/17/16 11:15 10/19/16 11:31 Calcium Gluconate 1 gm/Sodium Chloride 110 ml @ 110 mls/hr UNSCH PRN IV For Protein Corrected Calcium 10/18/16 09:45 10/18/16 10:22 Milrinone Lactate 20 mg/Sodium Chloride 100 ml @ 12.42 mls/ hr Q8H4M IV 10/18/16 16:21 10/19/16 06:57 Lansoprazole (Prevacid Odt) 30 mg DAILY NG 10/20/16 09:00 Sodium Chloride (NS Flush) 2 ml UNSCH PRN IV FLUSH FLUSH AFTER USING IV ACCESS 10/19/16 09:45 Sodium Chloride (NS Flush) 2 ml BID IV FLUSH 10/19/16 21:00 Artificial Tears (Tears Naturale Opth Soln) 1 drop TID EACH EYE 10/19/16 13:00 Albuterol/ Ipratropium (Duoneb Neb) 1 ampule Q6HR NEB INH 10/19/16 12:00 Albuterol Sulfate (Albuterol Neb) 2.5 mg Q2HR NEB PRN INH SOB/WHEEZING 10/19/16 09:45 Miscellaneous Information 1 [id number] XX 10/19/16 09:45 Chlorhexidine Gluconate (Chlorhexidine 2% Cloth) 3 pack Taper DAILY@04 TOP 10/20/16 04:00 10/16/17 03:59 Chlorhexidine Gluconate (Chlorhexidine 2% Cloth) 3 pack UNSCH PRN [facility] 10/19/16 09:45 Docusate Sodium (Colace Liq) 100 mg Q12HR PO 10/19/16 21:00 Sennosides (Senna Liq) 8.8 mg BID PO 10/19/16 21:00 Polyethylene Glycol (Miralax) 17 gm BID OG-TUBE 10/19/16 21:00 Pharmacy Profile Note 0 ml @ 0 mls/hr UNSCH OTHER 10/19/16 10:15 Piperacillin Sod/ Tazobactam Sod 100 ml @ 200 mls/hr Q6H IV 10/19/16 12:00 10/19/16 12:11 Vancomycin HCl 1500 mg/Sodium Chloride 515 ml @ 257.5 mls/ hr Q8H IV 10/19/16 13:00 Miscellaneous Information SPECIFIC LAB TO BE DRAWN:VANCOMYCIN TROUGH DATE TO... ONCE ONCE .XX 10/20/16 12:45 10/20/16 12:46 (Malinda Hines) Medical Decision Making MDM Remarks 56 y/o male with 1. Subarachnoid hemorrhage, status post coiling posterior communicating artery aneurysm. s/p left decompressive craniectomy Vasospasms, s/p endovascular verapamil infusions 10/13/16, 10/17/16 2. Possible seizures. Remains on Keppra and Cerebyx 3. Respiratory failure with worsening pneumonia 4. SIADH (Malinda Hines) Plan Plan Remarks continue neuro checks, follow-up TCD today. cont 3% NS. obtain f/u CT Head when stable for travel cont HHH therapy for vasospasms. Keep SBP around 160-180 critical care management daily PT and OT cont Protonix for stress ulcer prophylaxis continue TEDs and SCD's for DVT prophylaxis cont antiepileptic drugs for seizures (Malinda Hines) Attending Statement The exam, history, and the medical decision-making described in the above note were completed with the assistance of the mid-level provider. I reviewed and agree with the findings presented. I attest that I had a [id number] encounter with the patient on the same day, and personally performed and documented my assessment and findings in the medical record. (George Perry MD) Malinda Hines Oct 19, 2016 12:57 George Perry MD Oct 30, 2016 22:01
[2016-10-19 13:00] LABS: BACTERIA, URINE RARE /hpf; BLOOD, URINE LARGE (NEG); COMMENT (UR) CATH-CULTURE IND; CULTURE IF INDICATED CATH CULTURE IND; GLUCOSE,URINE 300 mg/dL (NEG); HYALINE CAST, URINE 1 /lpf (RARE); KETONE, URINE NEG (NEG); MUCUS URINE FEW /lpf (OCC); NITRITE,URINE NEG (NEG); PH, URINE 5.5 (5.0-8.5); SQUAMOUS EPITHELIAL CELL URINE <1 /hpf (0-5); URINE COLOR YELLOW (YELLW/STRAW)
[2016-10-19] MEDS: ARTIFICIAL TEARS OPTH SOLN 15 ML BTL EACH EYE SCH ×2 (13:00→18:00)
[2016-10-19] MEDS: VANCOMYCIN 1,500 MG/NS 500 ML IV SCH ×4 (13:00→19:53)
[2016-10-19] MEDS ORDERED: IODIXANOL 320 MG/ML 50 ML VIAL (for RAD SPEC) I-ARTERIAL ONE (14:05)
[2016-10-19 18:29] LABS: CKMB 14.1 NG/ML (0.5-3.6)
[2016-10-19] MEDS: DOCUSATE SODIUM 100 MG/10 ML UDC PO SCH (19:53)
[2016-10-19] MEDS: SODIUM CHLORIDE 0.9% FLUSH 10 ML FLUSH IV FLUSH SCH (19:53)
[2016-10-19] MEDS: SENNOSIDES SYRUP 8.8 MG/5 ML CUP PO SCH (19:53)
[2016-10-19] MEDS: POLYETHYLENE GLYCOL 17 GM PKG OG-TUBE SCH ×2 (19:53→21:00)
[2016-10-20] VITALS (19 sets, daily range): BP systolic 144–165; BP diastolic 84–92; PULSE 104–116; RESP 20; TEMP 98.4–99.5; O2SAT 89–100
[2016-10-20] MEDS: PIPERACIL-TAZO 4.5 GM PREMIX 100 ML IV SCH ×4 (00:02→17:17)
[2016-10-20] MEDS: niMODipine 30 MG CAP PO SCH ×6 (00:02→20:20)
[2016-10-20] MEDS: NOREPINEPHRINE INJ 16 MG in SODIUM CHLOR 0.9% 250 ML INJ 234 ML IV PRN (01:07)
[2016-10-20] MEDS: EPINEPHrine (1:1000) INJ 8 MG in DEXTROSE 5% IN WATER INJ 242 ML IV PRN ×6 (01:08→15:14)
[2016-10-20] MEDS: RESP: ALBUTEROL 2.5 MG/IPRATROPIUM 0.5 MG NEB (SCH) INH ×4 (01:19→19:55)
[2016-10-20] MEDS: INSULIN ASPART SUPPLEMENTAL SCALE SQ SCH ×5 (01:35→20:58)
[2016-10-20] MEDS: CISATRACURIUM INJ 100 MG in SODIUM CHLOR 0.9% 250 ML INJ 250 ML IV PRN ×3 (02:05→15:14)
[2016-10-20] MEDS: VASOPRESSIN INJ 40 UNITS in DEXTROSE 5% IN WATER 100ML INJ 98 ML IV SCH ×4 (03:58→21:54)
[2016-10-20] MEDS: CHLORHEXIDINE GLUCONATE 2 % 1 PACK (2 CLOTHS) TOP SCH (03:58)
[2016-10-20] MEDS: HYDROCORTISONE SOD SUCCINATE 100 MG VIAL IV PUSH SCH ×3 (03:58→20:20)
[2016-10-20] MEDS: PHENYLEPHRINE INJ 160 MG in DEXTROSE 5% IN WATE 500 ML INJ 484 ML IV PRN ×4 (03:59→23:21)
[2016-10-20 04:40] LABS: BLOOD GAS BASE EXCESS -1.5 mmol/L (-2-2); BLOOD GAS HCO3 24 mmol/L (22-26); BLOOD GAS METHEMOGLOBIN 0.5 % (0-2); BLOOD GAS O2 HGB SATURATION 98 % (90-100); BLOOD GAS OXYGEN CONTENT 12.3 Vol % (12.0-20.0); BLOOD GAS PCO2 47 mmHg (38-42); BLOOD GAS PO2 191 mmHg (61-120); BLOOD GAS TOTAL HGB 8.6 G/DL (12.0-16.0); CRITICAL VALUE NO; OXYGEN DEVICE VENTILATOR; TEMP CORR TO 98.6
[2016-10-20 04:41] LABS: DRAW SITE ART LINE; FIO2 90 %; STAT NO; VENT SETTINGS 20/650/IT1.0/+12
--- NOTE | 2016-10-20 04:51 | RADRPT ---
EXAM DATE/TIME: 10/20/2016 03:47 [place] COMPARISON: CHEST SINGLE AP, October 19, 2016, 4:49. INDICATIONS : Respiratory failure. MEDICAL HISTORY : Seizures. Subarachnoid hemorrhage. Hypertension. SURGICAL HISTORY : Left craniotomy. Ventriculostomy catheter. ENCOUNTER: Subsequent ACUITY: 1 week PAIN SCORE: Non-responsive. LOCATION: Bilateral chest FINDINGS: Stable ETT, right IJ central line, and NGT coursing beyond the GE junction with tip in the from the i mage. Stable bilateral lower lung zone patchy airspace disease. Right inferior hemithorax is omitted from the age. There is however continued hazy opacity in the right lower lung zone consistent with sm all pleural effusion. Cardiomediastinal contours are within normal limits. Remainder of the exam is u nchanged. CONCLUSION: 1. Stable tubes and lines. 2. Stable bilateral lower lung zone airspace disease. 3. Stable small right pleural effusion. 4. No significant interval change. Kev Vergara MD on October 20, 2016 at 4:47 Board Certified Radiologist. This report was verified electronically.
[2016-10-20] MEDS: levETIRAcetam INJ 500 MG in SODIUM CHLORIDE 0.9% INJ 100 ML IV SCH ×2 (05:06→17:18)
[2016-10-20] MEDS: EPOPROSTENOL NEB SOLUTION 50 NG/KG/MIN 100 ML NEB SCH ×6 (05:06→19:00)
[2016-10-20] MEDS: HEPARIN SODIUM - SQ 10,000 UNITS/ML VIAL SQ SCH ×3 (05:07→21:56)
[2016-10-20] MEDS: FOSPHENYTOIN SODIUM 100 MG PE/2 ML VIAL IV SCH ×3 (05:07→21:53)
[2016-10-20] MEDS: VANCOMYCIN 1,500 MG/NS 500 ML IV SCH ×6 (05:55→21:53)
[2016-10-20] MEDS: MILRINONE INJ 20 MG in SODIUM CHLORIDE 0.9% INJ 80 ML IV SCH ×3 (08:00→23:21)
[2016-10-20] MEDS: CHLORHEXIDINE 0.12% (ORAL KIT) 15 ML CUP MT SCH ×2 (08:00→20:00)
[2016-10-20] MEDS: LANSOPRAZOLE SOLUTAB 30 MG TAB NG SCH (08:46)
[2016-10-20] MEDS: POLYETHYLENE GLYCOL 17 GM PKG OG-TUBE SCH ×2 (08:46→20:20)
[2016-10-20] MEDS: SODIUM CHLORIDE 1 GRAM TAB PO SCH ×3 (08:46→17:18)
[2016-10-20] MEDS: DOCUSATE SODIUM 100 MG/10 ML UDC PO SCH ×2 (08:46→20:20)
[2016-10-20] MEDS: SENNOSIDES SYRUP 8.8 MG/5 ML CUP PO SCH ×2 (08:46→20:20)
[2016-10-20] MEDS: ARTIFICIAL TEARS OPTH SOLN 15 ML BTL EACH EYE SCH ×3 (09:00→18:00)
[2016-10-20] MEDS: SODIUM CHLORIDE 0.9% FLUSH 10 ML FLUSH IV FLUSH SCH ×2 (09:00→20:20)
[2016-10-20] MEDS ORDERED: MINERAL OIL EMULSION 55% PO ONE (09:15)
[2016-10-20] MEDS ORDERED: METHYLNALTREXONE BROMIDE 12 MG/0.6 ML VIAL SQ ONE (09:15)
--- NOTE | 2016-10-20 09:43 | HHI.CCPN ---
Subjective Remarks/Hospital Course 10/07: 56-year-old male presents with intracranial bleed. Patient was transferred from [facility] at [facility]. As per the paramedics and the nurse who assisted the patient said that patient earlier this morning was coming down the stairs when he started feeling some left-sided weakness and numbness. He called 911 and by the time EMS arrived they detected some deficit and called a stroke alert. Patient was taken to [facility]. When patient arrived his mental status started to decline and he was intubated emergently in the ER. A CAT scan of the head showed subarachnoid and subdural bleed. He was taking emergently to an angio suite for coiling of the aneurysm and later on to OR for subdural hematoma evacuation. 10/08: Remains sedated, orally intubated on mechanical ventilation. Arouses off sedation and following commands with both upper extremities earlier. Ventriculostomy in place. ICP 7, CPP mid 80s. 10/09: Remains sedated, orally intubated on mechanical ventilation. Arouses off sedation and follows commands with both upper extremities. Ventriculostomy in place. 10/10: Remains sedated, orally intubated on mechanical ventilation. Arouses off sedation and follows commands and both upper extremities. Ventriculostomy in place. ICP 5. Failed C Pap trial yesterday. 10/11: Extubated on 10/10, tolerating well. Awake and alert. Appears confused, moving all 4 extremities. Ventriculostomy discontinued today by neurosurgery 10/13: Patient has developed severe vasospasm at the left MCA territory on TCD's that was treated with IV route verapamil 10/14: patient extubated overnight. was originally following commands and neuro intact. TCDs this morning with increase LIs over yesterday, particularly Left MCA territory. On my evaluation early this morning, patient was aphasic, not moving the right side of his body, not following commands. SBP 140s at that time. net 2L negative/24h and uop almost 1L/hr at the time. I immediately bolused with 2L NS iv, placed arterial and central lines, started phenylephrine , increased SBP to goal 200 - 220 mmHg. called interventional neuroradiology and accompanied patient down personally to IR for IA verapamil again. I remained with the patient managing his hemodynamics down in IR and providing anxiolysis IV. I accompanied patient back up to [facility] where patient again was neuro intact and following commands. Sodium downtrending to 135 and urine studies and serum osms suggestive of urine sodium losses and high uop. added Florinef to mitigate sodium losses, and increased mivf to 500cc/hr to maintain euvolemia. later in the day patient decompensated requiring intubation for hyoxemia, cxr suggestive of pulmonary edema. 2d echo with evidence of EF 40%, septal hypokinesis, moderate MR. On levo, vaso, phenylephrine. difficult to get to goal SBP 200 mmHg, likely due to myocardial dysfunction. decreased goal to 180 - 200 mmHg to balance cardiac vs. neurologic goals. 10/15 Patient was discussed with Dr. Sullivan at shift change. Isuprel was initiated in effort to improve cardiac output as dobutamine not available and concerned with use of milrinone given long half life. Systolic blood pressure was relatively stable with perhaps some modest improvement from 170s to 180s for several hours after initiation. Notified when patient became abruptly hypotensive despite vasopressin, levophed 20 mcg/min, Greyson-Synephrine 300 mcg/m. He was also hypoxemic with sats in 80s despite PCV with PEEP 8 and FiO2 100%, respiratory rate in the 30s. He had decreased breath sounds bilaterally and was concerned for air trapping so removed from mechanical ventilation and bagged without improvement. Placed patient back on mechanical ventilation and provide recruitment maneuvers and increased PEEP to 12 which resulted in improvement of sats to 88% to 92%. Ordered Flolan. Discontinued isuprel and initiated epinephrine. R radial art line would not draw blood . Performed u/s guided femoral artery stick to confirm hypoxemia on ABG given poor wave form on pulse ox and PaO2 was 58. Placed new L radial art line and this resulted in ~ 30 point increase in SBP relative to prior line but patient ultimately on vasopressin, levophed 30 micrograms per minute, Greyson-Synephrine 300 micrograms per minute, epinephrine 12 mcg/min and unable to maintain target pressure (SBP in 150s). Given calcium chloride. patient with shaking movements all extremities, pupils 2mm and sluggish, no eye deviation. Rigors seemed most likely but unable to emergently rule out seizures so loaded with fosphenytoin to avoid secondary injury from seizure activity. WBC increasing and concern for HCAP so pancultured and placed on cefepime, vancomycin, azithromycin. Hydrocortisone 100 mg IV every 8 hours initiated due to concern for septic shock in a patient who has been refractory to all other above measures. Patient is to hemodynamically unstable and hypoxic for transport for neurologic imaging. Urine output has declined to 180-200 ML's per hour. Back off maintenance IV fluids to 200 ML's per hour. Bedside echo demonstrates decreased LV function with normal RV contractility and collapsible IVC suggesting ongoing maintenance fluid administration is appropriate. 10/15 additional visit: continued to deteriorate throughout the day. Seen multiple times. hypoxic on 100% fio2, flolan. required nimbex drip to maintain. repeat bedside critical care ultrasound still demonstrates severe LV dysfunction , decompressed RV, IVC more dilated than previous echo overnight, however still with respiratory variation. femoral arterial line placed with better waveform and higher pressure (likely SVR too high to allow accurate measurement of radial pressure). Pulse contour analysis without stroke volume variation, CI 3.6. SV 52mL. trialed additional albumin without improvement in hemodynamics. uop slower than before, but still significant salt wasting in the urine- sodium dropped to 125 from 132 despite already on 3% nacl infusion and aggressive sodium replacements. forced to give 23% nacl and salt tabs. declining clinically despite maximal therapy. 10/16: continues to be maximally critically ill. LV dysfunction persists. starting to get volume overloaded, but given concern for ongoing cerebral vasospasm, unable to actively diurese patient. sodium wasting persists, but uop downtrending slightly. very hypokalemic today, likely due to steroids. remains intubated, sedated, paralyzed, on flolan. CXR today appears worse with worsening airspace disease. Lactate remains slightly elevated, confirming persistent shock. 10/17: Lung infiltrates dense bilaterally, reflected in shunting and problems with oxygenation. Developed vasospasm on TCDs and required angiogram and intra- arterial verapamil again today. 10/18: SBP 160 - 170 range. FiO2 0.55. BNP > 5000. Not tolerating attempts at maintaining higher BP due to worsening heart failure. Several episodes of vasospasm. Watch daily TCDs closely. Sputum no growth. 10/19: Tmax 99.8. Currently 99. Remains on 4 vasopressors and epoprostenol Subjective 10/20: Yesterday. Returned IR for intra-arterial calcium channel jose infusion for vasospasm. Transcranial Dopplers today Still pending. Remains on significant vasopressor support. Objective Vital Signs Date Time Temp Pulse Resp B/P (MAP) Pulse Ox O2 Delivery O2 Flow Rate FiO2 10/20/16 08:49 95 70 10/20/16 08:47 116 164/90 10/20/16 08:00 99.5 20 Intake and Output 10/20/16 10/20/16 10/20/16 07:59 15:59 23:59 Intake Total 3742 ml 932 ml Output Total 1815 ml 400 ml Balance 1927 ml 532 ml Result Diagram: 10/19/16 0550 10/20/16 06 Other Results Microbiology Date/Time Source Procedure Growth Status 10/15/16 04:29 Blood Peripheral Aerobic Blood Culture - Preliminary NO GROWTH IN 4 DAYS Resulted 10/15/16 04:29 Blood Peripheral Anaerobic Blood Culture - Preliminary NO GROWTH IN 4 DAYS Resulted 10/19/16 12:00 Sputum Endotracheal Gram Stain - Final Resulted 10/19/16 12:00 Sputum Endotracheal Sputum Culture Pending Resulted 10/19/16 12:00 Urine Catheterized Urine Urine Culture Pending Received Imaging Last Impressions Chest X-Ray 10/20/16 0000 Signed Impressions: Service Date/Time: October 03:47 - CONCLUSION: 1. Stable tubes and lines. 2. Stable bilateral lower lung zone airspace disease. 3. Stable small right pleural effusion. 4. No significant interval change. Kev Vergara MD Transcranial Doppler Study Complete 10/19/16 0600 Signed Impressions: Service Date/Time: Wednesday, October 19, 2016 08:02 - CONCLUSION: Suspect developing right MCA vasospasm Yosvany Polk MD Liver Ultrasound 10/19/16 0000 Signed Impressions: Service Date/Time: Wednesday, October 19, 2016 11:20 - CONCLUSION: 1. Sludge filled gallbladder with thickened wall. 2. Moderate size bilateral pleural effusions and mild upper abdominal ascites. Santos Vazquez MD Head CT 10/17/16 0000 Signed Impressions: Service Date/Time: Monday, October 17, 2016 15:06 - CONCLUSION: Ventricles are slightly larger without ventriculostomy. Edema in the left hemisphere the brain herniating through the operative site. Remington Woodward MD FACR Cerebral Arteriogram 10/17/16 0000 Signed Impressions: Service Date/Time: Monday, October 17, 2016 00:00 - CONCLUSION: 1. Uncompensated spasmolysis of the left middle cerebral artery Harvey Morejon MD Infusion Non-thrombolysis 10/14/16 1103 Signed Impressions: Service Date/Time: Friday, October 14, 2016 10:21 - CONCLUSION: 1. Uncomplicated infusion for spasmolysis Harvey Morejon MD Neck CTA 10/07/16 0000 Signed Impressions: Service Date/Time: Friday, October 07, 2016 15:03 - CONCLUSION: 1. Mild carotid bulb atherosclerotic calcification bilaterally. However, no significant stenosis is present in either internal carotid artery. 2. Paranasal sinus mucoperiosteal thickening. 3. Please refer to brain CTA report for description of the intracranial findings. Yosvany Ramirez MD Head CTA 10/07/16 0000 Signed Impressions: Service Date/Time: Friday, October 07, 2016 15:03 - CONCLUSION: 1. 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 2. Large left subdural hematoma measuring 1.3 cm in depth with a significant, 1.6 cm left to right subfalcine shift. Joni Shelton MD Objective Remarks GENERAL: 56-year-old male, currently sedated and paralyzed and orotracheally intubated/critically ill HEAD: Status post left craniectomy. Incision is clean dry and intact without EYES: About 4 mm bilaterally and questionably reactive NECK: Supple, trachea midline. orotracheal tube in place. CARDIOVASCULAR: Tachycardic, RR. S1, S2. No S4. 2/6 murmur left lower sternal border RESPIRATORY: Coarse rhonchorous breath sounds are appreciated bilaterally anterior-posterior. Diminished breath sounds bilateral lower lobes. GASTROINTESTINAL: Abdomen soft, non-tender, nondistended. Hypoactive bowel sounds are appreciated MUSCULOSKELETAL: Ischemic changes to left index, right fourth and fifth digits. Well-perfused. NEURO EXAM: RASS -5. [id number] 04. No gag or cough. Procedures 10/13 Four-vessel cerebral angiography with verapamil treatment of vasospasm Urinary Catheter: Yes Assessment to: Continue Maldonado insert reason: Prolonged Immobilization Vascular Central Line Catheter: Yes Assessment to: Continue Date of Insertion: Oct 14, 2016 Line: Central Venous Catheter Side: Right Location: Subclavian A/P Assessment and Plan Neuro/Psych Status post left frontotemporal parietal craniectomy 10/08 for evacuation subdural hematoma/duraplasty Left subdural hematoma - 1.3 cm with 1.6 shift left to right Subarachnoid hemorrhage contents 5, Carroll grade 4 - left P-comm status post 4 coiling 10/08 - TCD's daily: 10/19 - vasospasm -intra-arterial verapamil - Nimodipine 60 mg every 4 hours for vasospasm to complete 21 days. Initiated - Levetiracetam 500 mg IV twice a day for seizure prophylaxis - 10/13 and 10/14 and 10/17) 10/19 left MCA territory vasospasm, status post successful verapamil treatment by IR with 20 mg verapamil - SBP goal 180 - 220 mmHg, although only able to press to 160 on maximal therapy given cardiac dysfunction. - check phenytoin level -> 7. - 10/17 CT brain - less hemisphere edema with herniation through left craniotomy site and CT brain for today - Dr. Perry/neurosurgery - Currently on midazolam 4 mg an hour and fentanyl drip at 150 an hour - Currently cisatracurium drip at 4 g per kilo per minute titrate to maintain [id number] 2 out of 4 Respiratory: Acute hypoxic Respiratory failure-ARDS Noncardiogenic/neurogenic pulmonary edema - pulmonary edema, may be non-cardiogenic/neurogenic from SAH/vasospasm. cannot diurese due to active cerebral vasospasm. - [facility] /[birth year] - Ventilator bundle - Albuterol/age-appropriate versus every 6 hours with albuterol aerosols every 2 hours. Dyspnea - Epoprostenol 50 ng/kg/min aerosolized continue - Currently not appropriate for prone therapy due to subarachnoid hemorrhage/ cardiac dysfunction - Follow-up ABG/chest x-ray in a.m. Cardiovascular: Severe shock - septic and cardiogenic Severe LV dysfunction secondary to SAH Elevated troponin- secondary to SAH, unlikely to be ACS. Pulmonary hypertension -Currently on phenylephrine at 300 g per minute /norepinephrine 18 micrograms a minute, vasopressin 0.04 units a minute, epinephrine at 20 micrograms a minute to maintain to start blood pressure greater than 150 Continue stress dose hydrocortisone 100 mg IV every 8 hours - On milrinone 0.5 mics per kilogram per minute - goal euvolemia. +3 L. Will give low-dose diuretic today Currently off maintenance IV fluids Maximize concentration of all vasopressors - troponin elevation peak 4.71 likely secondary to his cardiac dysfunction secondary to SAH. unlikely to be ACS, and at this point unable to evaluate or intervene on coronary ischemia given how critically ill he is. Echocardiogram 10/14/16 revealed EF 40-45%. Septal hypokinesis. Moderate MR. Severe pulmonary hypertension with pulmonary artery pressures estimated 61 mmHg Cardiac index 3.7. SVV 6. Renal: Cerebral Salt Wasting/SIADH - q1h uop -- Strict I/Os - BNP > 5000 on 10/18 See below. Creatinine currently within normal limits FEN/GI: Severe hyponatremia Hypokalemia Elevated transaminases Hyperammonia -Currently on sodium chloride 3gm po TID - 3% NaCl 30cc/hr. - serial sodiums every 6 hours - ICU electrolyte protocol - aggressively replace potassium losses. - NPO while in shock. Will start TPN today - Lansoprazole 30 mg by tube daily for GI prophylaxis -Docusate sodium 100 mg twice a day, senna liquid 8.6 mg twice a day and polyethylene glycol 3350 17 g twice a day for bowel regimen Start lactulose 30 cc twice a day. Check ammonia level in a.m. Check liver ultrasound. Recheck LFTs in a.m. Likely secondary to hypoperfusion /shock Heme/ID: Septic Shock Possible HCAP -10/18 d/c empiric abx: vancomycin, cefepime, azithromycin. Will antonio culture again today and restart antibiotics with vancomycin, piperacillin/tazobactam on 10/19 Pertinent cultures 10/15 - blood cultures - 1 out of 4 anaerobic gram-negative cocci possibly Veillonella 10/15 - sputum - beta strep not A, strep species 10/19 - urine - pending 10/19 - sputum - pending We'll recheck blood cultures 2 today Endocrine: Presumed Adrenal Insufficiency -Discontinued fludrocortisone 10/18. Monitor sodium 6 hours. - Current hydrocortisone 100 mg every 8 hours. Sliding-scale insulin with Novulog -Accu-Cheks every 4 hours to maintain euglycemia Beverly protocol. Prophylaxis: GI Prophylaxis - lansoprazole DVT Prophylaxis-- SCDs, heparin subcutaneous Lines: - 10/14 right SC TLC - 10/14 right radial art line, removed 10/14 - 10/15 left radial art line, removed 10/16 - 10/15 left femoral art line - Maldonado Critical care time 30 minutes Cyrus Boland MD Oct 20, 2016 09:43
--- NOTE | 2016-10-20 10:11 | RADRPT ---
EXAM DATE/TIME: 10/19/2016 12:47 [facility] COMPARISON: ANGIOGRAM, CEREBRAL WO ARCH, October 17, 2016, 0:00. INDICATIONS : Patient with history of subarachnoid hemorrhage in need of cerebral angiogram. MEDICAL HISTORY : HTN, Cerebral aneurysm, SAH SURGICAL HISTORY : Left PCOMM coiling, Craniotomy, Ventriculostomy ENCOUNTER: Subsequent ACUITY: 2 weeks PAIN SCORE: Nonresponsive. FLUORO TIME: 4.3 minutes IMAGE SERIES: 5 ACCESS SITE: Right Femoral artery CONTRAST: 30 cc Visipaque (iodixanol) MEDICATION(S): 1.) 20 mg Verapamil IART PROCEDURE : 1. Ultrasound-guided puncture of the right common femoral artery access site. 2. Conscious sedation with continuous EKG and Oximetry monitoring. 3. selective catheterization, right internal carotid artery 4. Angiography of the right internal carotid artery 5. intra-arterial spasmolytic therapy, right internal carotid artery 6. Selective catheterization, left internal carotid artery 7. Angiography of the left internal carotid artery The risks, benefits and alternatives to the procedure were explained and verbal and written consent w as obtained. The site was prepped in sterile fashion. Full sterile technique was used, including ca p, mask, sterile gloves and gown and a large sterile sheet. Hand hygiene and 2% chlorhexidine and/or betadine/alcohol prep was utilized per protocol for cutaneous antisepsis. Sterile gel and sterile p robe cover were utilized for ultrasound guidance. The skin and subcutaneous tissues were infiltrated with local anesthetic solution. With ultrasound and fluoroscopic guidance the selected artery was punctured and a vascular sheath was placed A 4 Scottish vertebral catheter was introduced and used to select the right internal carotid artery. Se lective right internal carotid arteriography was performed. Spasmolytic therapy was then accomplished with slow infusion of a total of approximately 20 mg of verapamil. Followup arteriography was perfor med. Attention was then turned to the left internal carotid artery which was similarly catheterized and ev aluated with DSA. The sheath was removed. The puncture site was closed with manual pressure and hemostasis was obtained . The patient tolerated the procedure well and there were no complications. Conscious sedation was performed with the prescribed dosages and duration as above in the presence of an independent trained radiology nurse to assist in the monitoring of the patient. EKG and oximetry remained stable throughout the procedure. FINDINGS: Selective right internal carotid arteriography reveals mild right MCA territory proximal branch vesse ls vasospasm, improved after verapamil infusion. Angiographic appearance of the left anterior circula tion is stable. CONCLUSION: Uncomplicated cerebral arteriography with spasmolytic therapy as described in detail above. Yosvany Polk MD on October 20, 2016 at 10:03 Board Certified Radiologist. This report was verified electronically.
--- NOTE | 2016-10-20 10:27 | RADRPT ---
EXAM DATE/TIME: 10/20/2016 07:54 [facility] COMPARISON: US TRANSCRANIAL DOPPLER COMPLETE, October 19, 2016, 8:02. INDICATIONS : Subarachnoid hemorrhage. MEDICAL HISTORY : Hypertension. Subarachnoid hemorrhage. Respiratory disorders. SURGICAL HISTORY : Left craniotomy. Ventriculostomy catheter. ENCOUNTER: Sequela ACUITY: 1 week PAIN SCORE: Nonresponsive. LOCATION: Bilateral cranial Current Exam: Oct 20, 2016 [place] Ratio: Right: 3.6 Left: 3.7 [place] Ratio: Right: 2.2 Left: 1.1 Previous Exam: Oct 19, 2016 [place] Ratio: Right: 4.9 Left: 2.3 [place] Ratio: Right: 2.4 Left: 1.8 FINDINGS: Examination performed at bedside. Real-time ultrasound with the assistance of color and spectral Dop pler was utilized to evaluate the intracerebral circulation. Time-averaged maximal velocities are ca lculated in cm/s. CONCLUSION: Slight interval elevation of flow velocity measurements and ratio on the left Yosvany Polk MD on October 20, 2016 at 10:18 Board Certified Radiologist. This report was verified electronically.
[2016-10-20] MEDS: fentaNYL DRIP 250 ML IV PRN (10:32)
[2016-10-20 11:07] LABS: AUTOMATED NEUTROPHIL # 19.9 TH/MM3 (1.8-7.7); BASOPHIL % 0.1 % (0.0-2.0); LYMPHOCYTE # 0.4 TH/MM3 (1.0-4.8); MEAN CORPUSCULAR HEMOGLOBIN 33.2 PG (27.0-34.0); MEAN CORPUSCULAR HGB CONC 33.6 % (32.0-36.0); MONO % 6.2 % (0.0-8.0); NEUT % 91.7 % (16.0-70.0); PLATELET COUNT 200 TH/MM3 (150-450); RED BLOOD COUNT 2.11 MIL/MM3 (4.50-5.90); RED CELL DISTRIBUTION WIDTH 13.3 % (11.6-17.2); WHITE BLOOD COUNT 21.6 TH/MM3 (4.0-11.0)
[2016-10-20 11:13] LABS: HEMO FLAGS DIFF FINAL
[2016-10-20 11:15] LABS: HEMATOCRIT 20.9 % (39.0-51.0)
[2016-10-20 11:25] LABS: MAGNESIUM 2.3 MG/DL (1.5-2.5)
[2016-10-20] MEDS ORDERED: PHARMACY ORDERED LAB ONE (12:45)
[2016-10-20] MEDS ORDERED: MINERAL OIL LIQUID 30 ML CUP PO ONE ×2 (14:00)
[2016-10-20 14:27] LABS: BICARBONATE 28.3 MEQ/L (21.0-32.0); INDIRECT BILIRUBIN 0.2 MG/DL (0.0-0.8); MAGNESIUM 2.2 MG/DL (1.5-2.5); TOTAL BILIRUBIN ADULT 0.4 MG/DL (0.2-1.0)
[2016-10-20 14:34] LABS: POTASSIUM 2.7 MEQ/L (3.5-5.1)
[2016-10-20] MEDS: 3% SALINE INJ 500 ML IV SCH (15:32)
--- NOTE | 2016-10-20 15:52 | HHI.NSPN ---
Note Status Status: Progress Note Interval History Interval History This is a 56-year-old male brought to the emergency room as an emergency transfer from another institution with history of intracranial bleed. He was transferred from [facility] and [facility]. Apparently the patient said that patient earlier this morning was coming down the stairs when he started feeling some left-sided weakness and numbness. He called 911 and by the time EMS arrived they detected severe neurological deficits and called a stroke alert. No seizure activity reported. No tongue biting. No incontinence of stool or urine. Patient was taken to [facility]. Apparently he was not able to move his right side . When patient arrived his mental status started to decline and he was intubated emergently in the ER for airway protection. A CT scan of the head showed extensive subarachnoid bleed. In addition he had a sizable subdural hematoma. He was brought emergently on the ventilator. He was on a propofol drip and well sedated. GCS was 3. He was on a Cardene drip and blood pressure was in the 120s. Neurosurgical consultation was requested 10/08. POD #1 Open eyes and follows commands 10/12. Doing very well. Neurologically stable. Patient is in restraints secondary to pulling out his [place] multiple times. 10/13. Much more lethargic, difficult to speak with new aphasia 10/14. Improved after angiography. Today he developed new onset of aphasia and right hemiparesis 10/17. Intubated and sedated. Lung infiltrates dense bilaterally, reflected in shunting and problems with oxygenation. 10/18: underwent endovascular verapamil infusion to left MCA vasospasm yesterday. TCD today pending. left flap pak today. Intubated and sedated. continues to be on multiple pressors. on 3% NS. 10/19: currently unstable for travel for repeat CT Head this am. no changes with neuro checks, remains intubated, sedated. pupils equal. continues on multiple pressors support 10/20: intubated and mildly sedated. remains on multiple pressors. pneumonia worsening. TCD this am reports slight increase in flow velocity to left, he underwent cerebral angiography yesterday with endovascular verapamil infusion right ICA. Labs, Micro, & Vital Signs Results Date Time Temp Pulse Resp B/P (MAP) Pulse Ox O2 Delivery O2 Flow Rate FiO2 10/20/16 15:18 115 166/94 10/20/16 15:14 115 170/85 10/20/16 14:00 114 10/20/16 12:00 98.9 116 20 159/86 (110) 96 10/20/16 12:00 80 10/20/16 12:00 114 10/20/16 11:30 94 65 10/20/16 10:00 116 10/20/16 08:49 95 70 10/20/16 08:47 116 164/90 10/20/16 08:00 99.5 116 20 165/90 (115) 97 10/20/16 08:00 80 10/20/16 08:00 116 10/20/16 08:00 115 164/91 10/20/16 06:00 113 10/20/16 04:30 93 80 10/20/16 04:00 80 10/20/16 04:00 99.2 112 20 162/92 (115) 98 10/20/16 04:00 112 10/20/16 03:59 112 161/92 10/20/16 03:58 112 163/81 10/20/16 02:00 111 10/20/16 01:18 95 90 10/20/16 01:08 109 149/83 10/20/16 01:07 109 149/83 10/20/16 00:00 98.4 108 20 152/86 (108) 93 10/20/16 00:00 100 10/20/16 00:00 108 10/19/16 22:50 91 100 10/19/16 22:34 109 163/88 10/19/16 22:00 108 10/19/16 20:40 91 80 10/19/16 20:00 110 10/19/16 20:00 80 10/19/16 20:00 99.2 110 20 158/86 (110) 94 10/19/16 19:52 109 157/85 10/19/16 19:52 109 156/86 10/19/16 18:00 104 10/19/16 17:38 95 80 10/19/16 16:33 102 132/67 10/19/16 16:00 102 10/19/16 16:00 99.0 102 20 132/67 (88) 91 10/19/16 16:00 55 10/21/16 06:59 Intake Total 3183 ml Output Total 2060 ml Balance 1123 ml Constitutional Vital Signs Date Time Temp Pulse Resp B/P (MAP) Pulse Ox O2 Delivery O2 Flow Rate FiO2 10/20/16 15:18 115 166/94 10/20/16 15:14 115 170/85 10/20/16 14:00 114 10/20/16 12:00 98.9 116 20 159/86 (110) 96 10/20/16 12:00 80 10/20/16 12:00 114 10/20/16 11:30 94 65 10/20/16 10:00 116 10/20/16 08:49 95 70 10/20/16 08:47 116 164/90 10/20/16 08:00 99.5 116 20 165/90 (115) 97 10/20/16 08:00 80 10/20/16 08:00 116 10/20/16 08:00 115 164/91 10/20/16 06:00 113 10/20/16 04:30 93 80 10/20/16 04:00 80 10/20/16 04:00 99.2 112 20 162/92 (115) 98 10/20/16 04:00 112 10/20/16 03:59 112 161/92 10/20/16 03:58 112 163/81 10/20/16 02:00 111 10/20/16 01:18 95 90 10/20/16 01:08 109 149/83 10/20/16 01:07 109 149/83 10/20/16 00:00 98.4 108 20 152/86 (108) 93 10/20/16 00:00 100 10/20/16 00:00 108 10/19/16 22:50 91 100 10/19/16 22:34 109 163/88 10/19/16 22:00 108 10/19/16 20:40 91 80 10/19/16 20:00 110 10/19/16 20:00 80 10/19/16 20:00 99.2 110 20 158/86 (110) 94 10/19/16 19:52 109 157/85 10/19/16 19:52 109 156/86 10/19/16 18:00 104 10/19/16 17:38 95 80 10/19/16 16:33 102 132/67 10/19/16 16:00 102 10/19/16 16:00 99.0 102 20 132/67 (88) 91 10/19/16 16:00 55 10/21/16 06:59 Intake Total 3183 ml Output Total 2060 ml Balance 1123 ml Physical Exam Intubated and sedated Left flap full softer to palpate today Surgical wound healing well, no evidence of infection CN: pupils 3-4 mm nonreactive b/l, eyes appears conjugated Motor: no response to pain stimuli x 4 extremities. No spontaneous movements Reflexes: Plantars silent b/l Sensory: no response to painful stimuli Cerebellar: cannot assess due to clinical condition Medications Current Medications Current Medications Medications (Trade) Dose Ordered Sig/Adali Route PRN Reason Start Time Stop Time Status Last Admin Dose Admin Chlorhexidine Gluconate (Peridex 0.12% Liq) 15 ml BID@08,20 MT 10/07/16 20:00 10/20/16 08:00 Levetriacetam 500 mg/Sodium Chloride 105 ml @ 400 mls/hr Q12H IV 10/08/16 06:00 10/20/16 05:06 Bisacodyl (Dulcolax Supp) 10 mg DAILY PRN RECTAL CONSTIPATION 10/07/16 18:30 Ondansetron HCl (Zofran Inj) 4 mg Q6H PRN IV NAUSEA OR VOMITING 10/07/16 18:30 Calcium Gluconate (Calcium Gluconate Inj) 1 gm UNSCH PRN IV SEE LABEL COMMENTS 10/07/16 18:30 10/16/16 10:00 Potassium Chloride 100 ml @ 50 mls/hr UNSCH PRN IV POTASSIUM LESS THAN 4 10/07/16 18:30 10/12/16 06:13 Magnesium Sulfate 4 gm/Sodium Chloride 108 ml @ 108 mls/hr UNSCH PRN IV MAGNESIUM LESS THAN 2 10/07/16 18:30 Acetaminophen (Tylenol) 650 mg Q4H PRN PO TEMP >100.4 10/07/16 18:30 10/12/16 18:15 Dextrose (D50w (Vial) Inj) 50 ml UNSCH PRN IV PUSH HYPOGLYCEMIA - SEE COMMENTS 10/07/16 19:15 Glucagon (Glucagon Inj) 1 mg UNSCH PRN OTHER HYPOGLYCEMIA-SEE COMMENTS 10/07/16 19:15 Propofol 100 ml @ 0 mls/hr TITRATE PRN IV Sedation 10/07/16 23:15 10/14/16 20:29 Nimodipine (Nimotop) 60 mg Q4HR PO 10/13/16 00:00 11/02/16 23:59 10/20/16 15:33 Vasopressin 40 units/Dextrose 100 ml @ 4.5 mls/hr [id number] IV 10/14/16 11:30 10/20/16 03:58 Fentanyl Citrate 250 ml @ 5 mls/hr TITRATE PRN IV SEDATION 10/14/16 15:00 10/20/16 10:32 Midazolam HCl 100 ml @ 2 mls/hr TITRATE PRN IV SEDATION 10/14/16 15:00 10/17/16 00:11 Heparin Sodium (Porcine) (Heparin Inj) 5,000 units Q8HR SQ 10/14/16 22:00 10/20/16 12:55 Epoprostenol Sodium 75 ml/ Sodium Chloride 100 ml @ 8 mls/hr Q8H NEB 10/15/16 03:00 10/20/16 05:06 Fosphenytoin Sodium (Cerebyx Inj) 100 mgpe Q8HR IV 10/15/16 10:00 10/20/16 12:55 Hydrocortisone Sodium Succinate (SoluCORTEF INJ) 100 mg Q8H IV PUSH 10/15/16 04:00 10/20/16 11:41 Sodium Chloride 500 ml @ 30 mls/hr CONTINUOUS IV 10/15/16 08:00 10/20/16 15:32 Cisatracurium Besylate 100 mg/ Sodium Chloride 260 ml @ 11.24 mls/ hr TITRATE PRN IV TOF 1/4 10/15/16 13:00 10/20/16 15:14 Sodium Chloride (Sodium Chloride) 3 gm TID PO 10/15/16 13:15 10/20/16 11:41 Terbutaline Sulfate (Brethine Inj) 1 mg UNSCH PRN SQ FOR EXTRAVASATION PROTOCOL 10/15/16 15:45 Magnesium Oxide (Mag-Ox) 800 mg UNSCH PRN PO For Magnesium 1.2 - 1.6 mg/dL 10/16/16 09:15 Magnesium Sulfate 4 gm/Sodium Chloride 100 ml @ 50 mls/hr UNSCH PRN IV For Magnesium 0.9 - 1.1 mg/dL 10/16/16 09:15 Magnesium Sulfate 2 gm/Sodium Chloride 100 ml @ 50 mls/hr UNSCH PRN IV For Magnesium 1.2 - 1.6 mg/dL 10/16/16 09:15 Potassium Chloride 100 ml @ 50 mls/hr Q2H PRN IV For Potassium 2.8 - 3.2 mEq/L 10/16/16 09:15 10/16/16 12:22 Potassium Chloride 100 ml @ 50 mls/hr Q2H PRN IV For Potassium 3.3 - 3.5 mEq/L 10/16/16 09:15 Potassium Chloride 100 ml @ 50 mls/hr Q2H PRN IV For Potassium 2.8 - 3.2 mEq/L 10/16/16 09:15 10/16/16 20:18 Potassium Chloride 100 ml @ 25 mls/hr UNSCH PRN IV For Potassium 3.3 - 3.5 mEq/L 10/16/16 09:15 10/18/16 15:12 Potassium Phosphate (K-Phos) 2,000 mg Q4H PRN PO For Phosphorus < 2.5 mg/dL 10/16/16 09:15 Potassium Phosphate (K-Phos) 2,000 mg UNSCH PRN PO/TUBE SEE LABEL COMMENTS 10/16/16 09:15 Potassium Phosphate 30 mmol/ Sodium Chloride 260 ml @ 42 mls/hr UNSCH PRN IV SEE LABEL COMMENTS 10/16/16 09:15 Sodium Phosphate 30 mmol/Sodium Chloride 250 ml @ 42 mls/hr UNSCH PRN IV For Phosphorus < 2.5 mg/dL 10/16/16 09:15 Norepinephrine Bitartrate 16 mg/ Sodium Chloride 250 ml @ 1.87 mls/hr TITRATE PRN IV Blood pressure management 10/17/16 10:15 10/20/16 01:07 Phenylephrine HCl 160 mg/Dextrose 500 ml @ 7.5 mls/hr TITRATE PRN IV Blood Pressure Management 10/17/16 10:15 10/20/16 03:59 Epinephrine HCl 8 mg/Dextrose 250 ml @ 5.62 mls/hr TITRATE PRN IV Blood Pressure Management 10/17/16 11:15 10/20/16 15:14 Calcium Gluconate 1 gm/Sodium Chloride 110 ml @ 110 mls/hr UNSCH PRN IV For Protein Corrected Calcium 10/18/16 09:45 10/18/16 10:22 Milrinone Lactate 20 mg/Sodium Chloride 100 ml @ 12.42 mls/ hr Q8H4M IV 10/18/16 16:21 10/20/16 15:18 Lansoprazole (Prevacid Odt) 30 mg DAILY NG 10/20/16 09:00 10/20/16 08:46 Sodium Chloride (NS Flush) 2 ml UNSCH PRN IV FLUSH FLUSH AFTER USING IV ACCESS 10/19/16 09:45 Sodium Chloride (NS Flush) 2 ml BID IV FLUSH 10/19/16 21:00 10/20/16 09:00 Artificial Tears (Tears Naturale Opth Soln) 1 drop TID EACH EYE 10/19/16 13:00 10/20/16 13:00 Albuterol/ Ipratropium (Duoneb Neb) 1 ampule Q6HR NEB INH 10/19/16 12:00 10/20/16 08:59 Albuterol Sulfate (Albuterol Neb) 2.5 mg Q2HR NEB PRN INH SOB/WHEEZING 10/19/16 09:45 Miscellaneous Information 1 [id number] XX 10/19/16 09:45 Chlorhexidine Gluconate (Chlorhexidine 2% Cloth) 3 pack Taper DAILY@04 TOP 10/20/16 04:00 10/16/17 03:59 10/20/16 03:58 Chlorhexidine Gluconate (Chlorhexidine 2% Cloth) 3 pack UNSCH PRN TOP HYGIENIC CARE 10/19/16 09:45 Docusate Sodium (Colace Liq) 100 mg Q12HR PO 10/19/16 21:00 10/20/16 08:46 Sennosides (Senna Liq) 8.8 mg BID PO 10/19/16 21:00 10/20/16 08:46 Polyethylene Glycol (Miralax) 17 gm BID OG-TUBE 10/19/16 21:00 10/20/16 08:46 Pharmacy Profile Note 0 ml @ 0 mls/hr UNSCH OTHER 10/19/16 10:15 Piperacillin Sod/ Tazobactam Sod 100 ml @ 200 mls/hr Q6H IV 10/19/16 12:00 10/20/16 11:41 Vancomycin HCl 1500 mg/Sodium Chloride 515 ml @ 257.5 mls/ hr Q8H IV 10/19/16 13:00 10/20/16 12:54 Lactulose (Lactulose Liq) 30 ml BID OG-TUBE 10/20/16 21:00 Insulin Aspart (NovoLOG SUPPLEMENTAL SCALE) 1 Q4HR SQ 10/20/16 12:00 Multivitamins 10 ml/Folic Acid 1 mg/Amino Acids/ Electrolytes/ Dextrose 2,010.2 ml @ 75 mls/hr Q24H IV-CENTRAL 10/20/16 20:00 Fat Emulsion Intravenous 250 ml @ 10 mls/hr Q24H IV-CENTRAL 10/20/16 20:00 Medical Decision Making MDM Remarks 56 y/o male with 1. Subarachnoid hemorrhage, status post coiling posterior communicating artery aneurysm. s/p left decompressive craniectomy Vasospasms, s/p endovascular verapamil infusions 10/13/16, 10/17/16, 10/19/16 2. Possible seizures. Remains on Keppra and Cerebyx 3. Respiratory failure with worsening pneumonia Plan Plan Remarks continue neuro checks, cont HHH therapy for vasospasms. Keep SBP around 160-180 critical care management daily PT and OT cont Protonix for stress ulcer prophylaxis continue TEDs and SCD's for DVT prophylaxis cont antiepileptic drugs for seizures Malinda Hines Oct 20, 2016 15:52
[2016-10-20] MEDS: POTASSIUM PHOSPHATE INJ 30 MMOL in SODIUM CHLOR 0.9% 250 ML INJ 250 ML IV PRN (15:56)
[2016-10-20] MEDS ORDERED: POTASSIUM CHLOR 40 MEQ PREMIX 100 ML IV ONE (17:00)
[2016-10-20] MEDS ORDERED: POTASSIUM PHOSPHATE INJ 30 MMOL in SODIUM CHLOR 0.9% 250 ML INJ 250 ML IV ONE (18:00)
[2016-10-20] MEDS: LACTULOSE SYRUP 20 GM/30 ML CUP OG-TUBE SCH (20:20)
[2016-10-20] MEDS: FAT EMULSION 20% INJ 250 ML (@10 mls/hr) IV-CENTRAL SCH (20:21)
[2016-10-20] MEDS: CLINIMIX E 4.25/25 2000 mL- >42 mls/hr IV-CENTRAL SCH ×3 (20:21)
[2016-10-21] VITALS (19 sets, daily range): BP systolic 157–168; BP diastolic 88–96; PULSE 91–112; RESP 20; TEMP 97.8–99.2; O2SAT 92–100
[2016-10-21] MEDS: PIPERACIL-TAZO 4.5 GM PREMIX 100 ML IV SCH ×4 (00:01→16:40)
[2016-10-21] MEDS: CISATRACURIUM INJ 100 MG in SODIUM CHLOR 0.9% 250 ML INJ 250 ML IV PRN ×4 (00:02→12:59)
[2016-10-21] MEDS: niMODipine 30 MG CAP PO SCH ×6 (00:02→20:11)
[2016-10-21] MEDS: INSULIN ASPART SUPPLEMENTAL SCALE SQ SCH ×6 (00:35→20:11)
[2016-10-21 01:03] LABS: POTASSIUM 3.4 MEQ/L (3.5-5.1)
[2016-10-21] MEDS: RESP: ALBUTEROL 2.5 MG/IPRATROPIUM 0.5 MG NEB (SCH) INH ×3 (02:39→21:38)
[2016-10-21] MEDS: fentaNYL DRIP 250 ML IV PRN ×2 (02:51→16:42)
[2016-10-21] MEDS: EPOPROSTENOL NEB SOLUTION 50 NG/KG/MIN 100 ML NEB SCH ×4 (02:51→15:25)
[2016-10-21 03:50] LABS: BLOOD GAS BASE EXCESS -0.7 mmol/L (-2-2); BLOOD GAS CARBOXYHEMOGLOBIN 1.4 % (0-4); BLOOD GAS HCO3 24 mmol/L (22-26); BLOOD GAS METHEMOGLOBIN 0.7 % (0-2); BLOOD GAS O2 HGB SATURATION 96 % (90-100); BLOOD GAS OXYGEN CONTENT 9.4 Vol % (12.0-20.0); BLOOD GAS PCO2 46 mmHg (38-42); BLOOD GAS PO2 104 mmHg (61-120); BLOOD GAS TOTAL HGB 6.8 G/DL (12.0-16.0); TEMP CORR TO 98.6
[2016-10-21 03:51] LABS: CRITICAL VALUE YES; DRAW SITE ART LINE; FIO2 65 %; OXYGEN DEVICE VENTILATOR; VENT SETTINGS 20/650/IT1.0/+12
[2016-10-21 03:52] LABS: STAT NO
[2016-10-21] MEDS: CHLORHEXIDINE GLUCONATE 2 % 1 PACK (2 CLOTHS) TOP SCH (04:00)
[2016-10-21] MEDS: HYDROCORTISONE SOD SUCCINATE 100 MG VIAL IV PUSH SCH ×3 (04:02→20:11)
[2016-10-21 04:35] LABS: AUTOMATED NEUTROPHIL # 17.3 TH/MM3 (1.8-7.7); BASOPHIL % 0.1 % (0.0-2.0); HEMATOCRIT 23.9 % (39.0-51.0); HEMO FLAGS DIFF FINAL; LYMPH % 1.8 % (9.0-44.0); LYMPHOCYTE # 0.4 TH/MM3 (1.0-4.8); MEAN CELL VOLUME 96.4 FL (80.0-100.0); MEAN CORPUSCULAR HEMOGLOBIN 31.6 PG (27.0-34.0); MEAN CORPUSCULAR HGB CONC 32.8 % (32.0-36.0); MONO % 6.9 % (0.0-8.0); NEUT % 91.2 % (16.0-70.0); PLATELET COUNT 187 TH/MM3 (150-450); RED BLOOD COUNT 2.48 MIL/MM3 (4.50-5.90)
[2016-10-21] MEDS: VANCOMYCIN 1,500 MG/NS 500 ML IV SCH ×6 (05:03→20:12)
[2016-10-21 05:07] LABS: ALKALINE PHOSPHATASE 176 U/L (45-117); ALT (GPT) 180 U/L (12-78); ANION GAP 7 MEQ/L (5-15); AST (GOT) 105 U/L (15-37); BICARBONATE 27.6 MEQ/L (21.0-32.0); BLOOD UREA NITROGEN 18 MG/DL (7-18); CHLORIDE 112 MEQ/L (98-107); GLOMERULAR FILTRATION RATE 146 ML/MIN (>89); MAGNESIUM 2.2 MG/DL (1.5-2.5); SODIUM (NA) 147 MEQ/L (136-145); TOTAL BILIRUBIN ADULT 0.4 MG/DL (0.2-1.0)
[2016-10-21 05:10] LABS: POTASSIUM 2.7 MEQ/L (3.5-5.1)
[2016-10-21] MEDS: FOSPHENYTOIN SODIUM 100 MG PE/2 ML VIAL IV SCH ×3 (05:10→22:20)
[2016-10-21] MEDS: HEPARIN SODIUM - SQ 10,000 UNITS/ML VIAL SQ SCH ×3 (05:11→22:20)
[2016-10-21] MEDS: levETIRAcetam INJ 500 MG in SODIUM CHLORIDE 0.9% INJ 100 ML IV SCH ×2 (05:11→16:40)
--- NOTE | 2016-10-21 05:21 | RADRPT ---
EXAM DATE/TIME: 10/21/2016 03:47 [facility] COMPARISON: CHEST SINGLE AP, October 20, 2016, 3:47. INDICATIONS : Respiratory failure MEDICAL HISTORY : Seizures. Subarachnoid hemorrhage. Hypertension. SURGICAL HISTORY : Left craniotomy. Ventriculostomy catheter. ENCOUNTER: Subsequent ACUITY: 1 week PAIN SCORE: Non-responsive. LOCATION: Bilateral chest FINDINGS: Stable right IJ central line, ETT and NGT. Redemonstration of bilateral, right greater left, patchy a irspace consolidation and small right pleural effusion. There is likely a trace left pleural effusion as well. Cardiomediastinal contours are stable. Remainder of the exam is unchanged. CONCLUSION: 1. Stable tubes and lines. 2. Stable bilateral lower lung zone airspace consolidation. 3. Stable small right pleural effusion and likely trace left pleural effusion. 4. No significant interval change. Kev Vergara MD on October 21, 2016 at 5:17 Board Certified Radiologist. This report was verified electronically.
--- NOTE | 2016-10-21 05:45 | RADRPT ---
EXAM DATE/TIME: 10/21/2016 03:50 [facility] COMPARISON: No previous studies available for comparison. INDICATIONS : Evaluate ileus MEDICAL HISTORY : Seizures. Subarachnoid hemorrhage. Hypertension. SURGICAL HISTORY : Left craniotomy. Ventriculostomy catheter. ENCOUNTER: Subsequent ACUITY: 1 week PAIN SCORE: Non-responsive. LOCATION: Bilateral Abdomen FINDINGS: There is an NGT in the stomach. There is a paucity of small bowel gas. Air is seen in portion of the colon. No significant pneumatosis or gross free air. There is bibasilar pleural-parenchymal disease. No abnormal calcifications. Osseous structures are intact. CONCLUSION: 1. NGT in the stomach. 2. General paucity of small bowel gas. This finding is nonspecific and occasionally may reflect fluid -filled loops of bowel. Otherwise, no dilated bowel loops to suggest significant ileus or obstruction . Kev Vergara MD on October 21, 2016 at 5:41 Board Certified Radiologist. This report was verified electronically.
[2016-10-21] MEDS: POTASSIUM CHLOR 40 MEQ PREMIX 100 ML IV PRN ×4 (06:37→20:44)
[2016-10-21] MEDS: CHLORHEXIDINE 0.12% (ORAL KIT) 15 ML CUP MT SCH ×2 (08:00→20:12)
[2016-10-21] MEDS: SENNOSIDES SYRUP 8.8 MG/5 ML CUP PO SCH ×2 (08:22→21:00)
[2016-10-21] MEDS: DOCUSATE SODIUM 100 MG/10 ML UDC PO SCH ×2 (08:22→21:00)
[2016-10-21] MEDS: LANSOPRAZOLE SOLUTAB 30 MG TAB NG SCH (08:22)
[2016-10-21] MEDS: POLYETHYLENE GLYCOL 17 GM PKG OG-TUBE SCH ×2 (08:22→21:00)
[2016-10-21] MEDS: LACTULOSE SYRUP 20 GM/30 ML CUP OG-TUBE SCH ×2 (08:22→21:00)
[2016-10-21] MEDS: SODIUM CHLORIDE 1 GRAM TAB PO SCH ×3 (08:23→16:40)
[2016-10-21] MEDS: SODIUM CHLORIDE 0.9% FLUSH 10 ML FLUSH IV FLUSH SCH ×2 (09:00→21:00)
[2016-10-21] MEDS: ARTIFICIAL TEARS OPTH SOLN 15 ML BTL EACH EYE SCH ×3 (09:00→18:00)
[2016-10-21] MEDS: PHENYLEPHRINE INJ 160 MG in DEXTROSE 5% IN WATE 500 ML INJ 484 ML IV PRN ×4 (09:28→22:59)
--- NOTE | 2016-10-21 11:01 | HHI.NSPN ---
(Malinda Hines) Note Status Status: Progress Note (Malinda Hines) Interval History Interval History This is a 56-year-old male brought to the emergency room as an emergency transfer from another institution with history of intracranial bleed. He was transferred from [facility] and [facility]. Apparently the patient said that patient earlier this morning was coming down the stairs when he started feeling some left-sided weakness and numbness. He called 911 and by the time EMS arrived they detected severe neurological deficits and called a stroke alert. No seizure activity reported. No tongue biting. No incontinence of stool or urine. Patient was taken to [facility]. Apparently he was not able to move his right side . When patient arrived his mental status started to decline and he was intubated emergently in the ER for airway protection. A CT scan of the head showed extensive subarachnoid bleed. In addition he had a sizable subdural hematoma. He was brought emergently on the ventilator. He was on a propofol drip and well sedated. GCS was 3. He was on a Cardene drip and blood pressure was in the 120s. Neurosurgical consultation was requested 10/08. POD #1 Open eyes and follows commands 10/12. Doing very well. Neurologically stable. Patient is in restraints secondary to pulling out his [place] multiple times. 10/13. Much more lethargic, difficult to speak with new aphasia 10/14. Improved after angiography. Today he developed new onset of aphasia and right hemiparesis 10/17. Intubated and sedated. Lung infiltrates dense bilaterally, reflected in shunting and problems with oxygenation. 10/18: underwent endovascular verapamil infusion to left MCA vasospasm yesterday. TCD today pending. left flap pak today. Intubated and sedated. continues to be on multiple pressors. on 3% NS. 10/19: currently unstable for travel for repeat CT Head this am. no changes with neuro checks, remains intubated, sedated. pupils equal. continues on multiple pressors support 10/20: intubated and mildly sedated. remains on multiple pressors. pneumonia worsening. TCD this am reports slight increase in flow velocity to left, he underwent cerebral angiography yesterday with endovascular verapamil infusion right ICA. 10/21: intubated, sedated on fentanyl and versed. On Nimbex. (Malinda Hines) Labs, Micro, & Vital Signs Results Date Time Temp Pulse Resp B/P (MAP) Pulse Ox O2 Delivery O2 Flow Rate FiO2 10/21/16 10:00 103 10/21/16 09:28 102 162/92 10/21/16 08:00 60 10/21/16 08:00 98.5 103 20 166/96 (119) 100 10/21/16 08:00 103 10/21/16 07:57 99 60 10/21/16 06:00 110 10/21/16 04:12 95 65 10/21/16 04:00 99.0 112 20 168/94 (118) 92 10/21/16 04:00 112 10/21/16 04:00 65 10/21/16 02:00 110 10/21/16 01:20 93 65 10/21/16 00:00 99.2 108 20 160/88 (112) 93 10/21/16 00:00 65 10/21/16 00:00 108 10/20/16 23:21 107 155/85 10/20/16 23:21 107 157/86 10/20/16 22:23 95 65 10/20/16 22:00 65 10/20/16 22:00 104 10/20/16 21:54 106 149/82 10/20/16 20:00 70 10/20/16 20:00 99.0 104 20 144/84 (104) 99 10/20/16 20:00 104 10/20/16 19:25 99 70 10/20/16 18:00 108 10/20/16 16:00 99.2 111 20 156/84 (108) 100 10/20/16 16:00 80 10/20/16 16:00 111 10/20/16 15:50 89 65 10/20/16 15:18 115 166/94 10/20/16 15:14 115 170/85 10/20/16 14:00 114 10/20/16 12:00 98.9 116 20 159/86 (110) 96 10/20/16 12:00 80 10/20/16 12:00 114 10/20/16 11:30 94 65 Constitutional Vital Signs Date Time Temp Pulse Resp B/P (MAP) Pulse Ox O2 Delivery O2 Flow Rate FiO2 10/21/16 10:00 103 10/21/16 09:28 102 162/92 10/21/16 08:00 60 10/21/16 08:00 98.5 103 20 166/96 (119) 100 10/21/16 08:00 103 10/21/16 07:57 99 60 10/21/16 06:00 110 10/21/16 04:12 95 65 10/21/16 04:00 99.0 112 20 168/94 (118) 92 10/21/16 04:00 112 10/21/16 04:00 65 10/21/16 02:00 110 10/21/16 01:20 93 65 10/21/16 00:00 99.2 108 20 160/88 (112) 93 10/21/16 00:00 65 10/21/16 00:00 108 10/20/16 23:21 107 155/85 10/20/16 23:21 107 157/86 10/20/16 22:23 95 65 10/20/16 22:00 65 10/20/16 22:00 104 10/20/16 21:54 106 149/82 10/20/16 20:00 70 10/20/16 20:00 99.0 104 20 144/84 (104) 99 10/20/16 20:00 104 10/20/16 19:25 99 70 10/20/16 18:00 108 10/20/16 16:00 99.2 111 20 156/84 (108) 100 10/20/16 16:00 80 10/20/16 16:00 111 10/20/16 15:50 89 65 10/20/16 15:18 115 166/94 10/20/16 15:14 115 170/85 10/20/16 14:00 114 10/20/16 12:00 98.9 116 20 159/86 (110) 96 10/20/16 12:00 80 10/20/16 12:00 114 10/20/16 11:30 94 65 (Malinda Hines) Review of Systems ROS Limitations: Clinical Condition, Intubated, Unresponsive (Malinda Hines) Physical Exam Intubated and sedated Left flap full softer to palpate today Surgical wound healing well, no evidence of infection CN: pupils 3-4 mm nonreactive b/l, eyes appears conjugated Motor: no response to pain stimuli x 4 extremities. No spontaneous movements Reflexes: Plantars silent b/l Sensory: no response to painful stimuli Cerebellar: cannot assess due to clinical condition (Malinda Hines) Medications Current Medications Current Medications Medications (Trade) Dose Ordered Sig/Adali Route PRN Reason Start Time Stop Time Status Last Admin Dose Admin Chlorhexidine Gluconate (Peridex 0.12% Liq) 15 ml BID@08,20 MT 10/07/16 20:00 10/21/16 08:00 Levetriacetam 500 mg/Sodium Chloride 105 ml @ 400 mls/hr Q12H IV 10/08/16 06:00 10/21/16 05:11 Bisacodyl (Dulcolax Supp) 10 mg DAILY PRN RECTAL CONSTIPATION 10/07/16 18:30 Ondansetron HCl (Zofran Inj) 4 mg Q6H PRN IV NAUSEA OR VOMITING 10/07/16 18:30 Calcium Gluconate (Calcium Gluconate Inj) 1 gm UNSCH PRN IV SEE LABEL COMMENTS 10/07/16 18:30 10/16/16 10:00 Potassium Chloride 100 ml @ 50 mls/hr UNSCH PRN IV POTASSIUM LESS THAN 4 10/07/16 18:30 10/12/16 06:13 Magnesium Sulfate 4 gm/Sodium Chloride 108 ml @ 108 mls/hr UNSCH PRN IV MAGNESIUM LESS THAN 2 10/07/16 18:30 Acetaminophen (Tylenol) 650 mg Q4H PRN PO TEMP >100.4 10/07/16 18:30 10/12/16 18:15 Dextrose (D50w (Vial) Inj) 50 ml UNSCH PRN IV PUSH HYPOGLYCEMIA - SEE COMMENTS 10/07/16 19:15 Glucagon (Glucagon Inj) 1 mg UNSCH PRN OTHER HYPOGLYCEMIA-SEE COMMENTS 10/07/16 19:15 Propofol 100 ml @ 0 mls/hr TITRATE PRN IV Sedation 10/07/16 23:15 10/14/16 20:29 Nimodipine (Nimotop) 60 mg Q4HR PO 10/13/16 00:00 11/02/16 23:59 10/21/16 08:22 Vasopressin 40 units/Dextrose 100 ml @ 4.5 mls/hr [id number] IV 10/14/16 11:30 10/20/16 21:54 Fentanyl Citrate 250 ml @ 5 mls/hr TITRATE PRN IV SEDATION 10/14/16 15:00 10/21/16 02:51 Midazolam HCl 100 ml @ 2 mls/hr TITRATE PRN IV SEDATION 10/14/16 15:00 10/17/16 00:11 Heparin Sodium (Porcine) (Heparin Inj) 5,000 units Q8HR SQ 10/14/16 22:00 10/21/16 05:11 Epoprostenol Sodium 75 ml/ Sodium Chloride 100 ml @ 8 mls/hr Q8H NEB 10/15/16 03:00 10/21/16 02:51 Fosphenytoin Sodium (Cerebyx Inj) 100 mgpe Q8HR IV 10/15/16 10:00 10/21/16 05:10 Hydrocortisone Sodium Succinate (SoluCORTEF INJ) 100 mg Q8H IV PUSH 10/15/16 04:00 10/21/16 04:02 Sodium Chloride 500 ml @ 30 mls/hr CONTINUOUS IV 10/15/16 08:00 10/20/16 15:32 Cisatracurium Besylate 100 mg/ Sodium Chloride 260 ml @ 11.24 mls/ hr TITRATE PRN IV TOF 02/1610/15/16 13:00 10/21/16 09:34 Sodium Chloride (Sodium Chloride) 3 gm TID PO 10/15/16 13:15 10/21/16 08:23 Terbutaline Sulfate (Brethine Inj) 1 mg UNSCH PRN SQ FOR EXTRAVASATION PROTOCOL 10/15/16 15:45 Magnesium Oxide (Mag-Ox) 800 mg UNSCH PRN PO For Magnesium 1.2 - 1.6 mg/dL 10/16/16 09:15 Magnesium Sulfate 4 gm/Sodium Chloride 100 ml @ 50 mls/hr UNSCH PRN IV For Magnesium 0.9 - 1.1 mg/dL 10/16/16 09:15 Magnesium Sulfate 2 gm/Sodium Chloride 100 ml @ 50 mls/hr UNSCH PRN IV For Magnesium 1.2 - 1.6 mg/dL 10/16/16 09:15 Potassium Chloride 100 ml @ 50 mls/hr Q2H PRN IV For Potassium 2.8 - 3.2 mEq/L 10/16/16 09:15 10/16/16 12:22 Potassium Chloride 100 ml @ 50 mls/hr Q2H PRN IV For Potassium 3.3 - 3.5 mEq/L 10/16/16 09:15 Potassium Chloride 100 ml @ 50 mls/hr Q2H PRN IV For Potassium 2.8 - 3.2 mEq/L 10/16/16 09:15 10/21/16 09:25 Potassium Chloride 100 ml @ 25 mls/hr UNSCH PRN IV For Potassium 3.3 - 3.5 mEq/L 10/16/16 09:15 10/18/16 15:12 Potassium Phosphate (K-Phos) 2,000 mg Q4H PRN PO For Phosphorus < 2.5 mg/dL 10/16/16 09:15 Potassium Phosphate (K-Phos) 2,000 mg UNSCH PRN PO/TUBE SEE LABEL COMMENTS 10/16/16 09:15 Potassium Phosphate 30 mmol/ Sodium Chloride 260 ml @ 42 mls/hr UNSCH PRN IV SEE LABEL COMMENTS 10/16/16 09:15 10/20/16 15:56 Sodium Phosphate 30 mmol/Sodium Chloride 250 ml @ 42 mls/hr UNSCH PRN IV For Phosphorus < 2.5 mg/dL 10/16/16 09:15 Norepinephrine Bitartrate 16 mg/ Sodium Chloride 250 ml @ 1.87 mls/hr TITRATE PRN IV Blood pressure management 10/17/16 10:15 10/20/16 01:07 Phenylephrine HCl 160 mg/Dextrose 500 ml @ 7.5 mls/hr TITRATE PRN IV Blood Pressure Management 10/17/16 10:15 10/21/16 09:28 Epinephrine HCl 8 mg/Dextrose 250 ml @ 5.62 mls/hr TITRATE PRN IV Blood Pressure Management 10/17/16 11:15 10/20/16 15:14 Calcium Gluconate 1 gm/Sodium Chloride 110 ml @ 110 mls/hr UNSCH PRN IV For Protein Corrected Calcium 10/18/16 09:45 10/18/16 10:22 Milrinone Lactate 20 mg/Sodium Chloride 100 ml @ 12.42 mls/ hr Q8H4M IV 10/18/16 16:21 10/20/16 23:21 Lansoprazole (Prevacid Odt) 30 mg DAILY NG 10/20/16 09:00 10/21/16 08:22 Sodium Chloride (NS Flush) 2 ml UNSCH PRN IV FLUSH FLUSH AFTER USING IV ACCESS 10/19/16 09:45 Sodium Chloride (NS Flush) 2 ml BID IV FLUSH 10/19/16 21:00 10/21/16 09:00 Artificial Tears (Tears Naturale Opth Soln) 1 drop TID EACH EYE 10/19/16 13:00 10/21/16 09:00 Albuterol/ Ipratropium (Duoneb Neb) 1 ampule Q6HR NEB INH 10/19/16 12:00 10/21/16 08:09 Albuterol Sulfate (Albuterol Neb) 2.5 mg Q2HR NEB PRN INH SOB/WHEEZING 10/19/16 09:45 Miscellaneous Information 1 [id number] XX 10/19/16 09:45 Chlorhexidine Gluconate (Chlorhexidine 2% Cloth) 3 pack Taper DAILY@04 TOP 10/20/16 04:00 10/16/17 03:59 10/21/16 04:00 Chlorhexidine Gluconate (Chlorhexidine 2% Cloth) 3 pack UNSCH PRN TOP HYGIENIC CARE 10/19/16 09:45 Docusate Sodium (Colace Liq) 100 mg Q12HR PO 10/19/16 21:00 10/21/16 08:22 Sennosides (Senna Liq) 8.8 mg BID PO 10/19/16 21:00 10/21/16 08:22 Polyethylene Glycol (Miralax) 17 gm BID OG-TUBE 10/19/16 21:00 10/21/16 08:22 Pharmacy Profile Note 0 ml @ 0 mls/hr UNSCH OTHER 10/19/16 10:15 Piperacillin Sod/ Tazobactam Sod 100 ml @ 200 mls/hr Q6H IV 10/19/16 12:00 10/21/16 05:11 Vancomycin HCl 1500 mg/Sodium Chloride 515 ml @ 257.5 mls/ hr Q8H IV 10/19/16 13:00 10/21/16 05:03 Lactulose (Lactulose Liq) 30 ml BID OG-TUBE 10/20/16 21:00 10/21/16 08:22 Insulin Aspart (NovoLOG SUPPLEMENTAL SCALE) 1 Q4HR SQ 10/20/16 12:00 10/21/16 04:59 Multivitamins 10 ml/Folic Acid 1 mg/Amino Acids/ Electrolytes/ Dextrose 2,010.2 ml @ 75 mls/hr Q24H IV-CENTRAL 10/20/16 20:00 10/20/16 20:21 Fat Emulsion Intravenous 250 ml @ 10 mls/hr Q24H IV-CENTRAL 10/20/16 20:00 10/20/16 20:21 (Malinda Hines) Medical Decision Making MDM Remarks 56 y/o male with 1. Subarachnoid hemorrhage, status post coiling posterior communicating artery aneurysm. s/p left decompressive craniectomy Vasospasms, s/p endovascular verapamil infusions 10/13/16, 10/17/16, 10/19/16 2. Possible seizures. Remains on Keppra and Cerebyx 3. Respiratory failure with worsening pneumonia (Malinda Hines) Plan Plan Remarks continue neuro checks and follow up exam cont HHH therapy for vasospasms. Keep SBP around 160-180 cont critical care management daily PT and OT cont Protonix for stress ulcer prophylaxis continue TEDs and SCD's for DVT prophylaxis cont antiepileptic drugs for seizures (Malinda Hines) Attending Statement The exam, history, and the medical decision-making described in the above note were completed with the assistance of the mid-level provider. I reviewed and agree with the findings presented. I attest that I had a [id number] encounter with the patient on the same day, and personally performed and documented my assessment and findings in the medical record. (George Perry MD) Malinda Hines Oct 21, 2016 11:00 George Perry MD Oct 31, 2016 11:05
[2016-10-21] MEDS: 3% SALINE INJ 500 ML IV SCH (11:43)
[2016-10-21] MEDS: MIDAZOLAM 100 MG/100 ML INJ 100 ML IV PRN (11:45)
--- NOTE | 2016-10-21 15:09 | HHI.CCPN ---
Subjective Remarks/Hospital Course 10/07: 56-year-old male presents with intracranial bleed. Patient was transferred from [facility] at [facility]. As per the paramedics and the nurse who assisted the patient said that patient earlier this morning was coming down the stairs when he started feeling some left-sided weakness and numbness. He called 911 and by the time EMS arrived they detected some deficit and called a stroke alert. Patient was taken to [facility]. When patient arrived his mental status started to decline and he was intubated emergently in the ER. A CAT scan of the head showed subarachnoid and subdural bleed. He was taking emergently to an angio suite for coiling of the aneurysm and later on to OR for subdural hematoma evacuation. 10/08: Remains sedated, orally intubated on mechanical ventilation. Arouses off sedation and following commands with both upper extremities earlier. Ventriculostomy in place. ICP 7, CPP mid 80s. 10/09: Remains sedated, orally intubated on mechanical ventilation. Arouses off sedation and follows commands with both upper extremities. Ventriculostomy in place. 10/10: Remains sedated, orally intubated on mechanical ventilation. Arouses off sedation and follows commands and both upper extremities. Ventriculostomy in place. ICP 5. Failed C Pap trial yesterday. 10/11: Extubated on 10/10, tolerating well. Awake and alert. Appears confused, moving all 4 extremities. Ventriculostomy discontinued today by neurosurgery 10/13: Patient has developed severe vasospasm at the left MCA territory on TCD's that was treated with IV route verapamil 10/14: patient extubated overnight. was originally following commands and neuro intact. TCDs this morning with increase LIs over yesterday, particularly Left MCA territory. On my evaluation early this morning, patient was aphasic, not moving the right side of his body, not following commands. SBP 140s at that time. net 2L negative/24h and uop almost 1L/hr at the time. I immediately bolused with 2L NS iv, placed arterial and central lines, started phenylephrine , increased SBP to goal 200 - 220 mmHg. called interventional neuroradiology and accompanied patient down personally to IR for IA verapamil again. I remained with the patient managing his hemodynamics down in IR and providing anxiolysis IV. I accompanied patient back up to [facility] where patient again was neuro intact and following commands. Sodium downtrending to 135 and urine studies and serum osms suggestive of urine sodium losses and high uop. added Florinef to mitigate sodium losses, and increased mivf to 500cc/hr to maintain euvolemia. later in the day patient decompensated requiring intubation for hyoxemia, cxr suggestive of pulmonary edema. 2d echo with evidence of EF 40%, septal hypokinesis, moderate MR. On levo, vaso, phenylephrine. difficult to get to goal SBP 200 mmHg, likely due to myocardial dysfunction. decreased goal to 180 - 200 mmHg to balance cardiac vs. neurologic goals. 10/15 Patient was discussed with Dr. Sullivan at shift change. Isuprel was initiated in effort to improve cardiac output as dobutamine not available and concerned with use of milrinone given long half life. Systolic blood pressure was relatively stable with perhaps some modest improvement from 170s to 180s for several hours after initiation. Notified when patient became abruptly hypotensive despite vasopressin, levophed 20 mcg/min, Greyson-Synephrine 300 mcg/m. He was also hypoxemic with sats in 80s despite PCV with PEEP 8 and FiO2 100%, respiratory rate in the 30s. He had decreased breath sounds bilaterally and was concerned for air trapping so removed from mechanical ventilation and bagged without improvement. Placed patient back on mechanical ventilation and provide recruitment maneuvers and increased PEEP to 12 which resulted in improvement of sats to 88% to 92%. Ordered Flolan. Discontinued isuprel and initiated epinephrine. R radial art line would not draw blood . Performed u/s guided femoral artery stick to confirm hypoxemia on ABG given poor wave form on pulse ox and PaO2 was 58. Placed new L radial art line and this resulted in ~ 30 point increase in SBP relative to prior line but patient ultimately on vasopressin, levophed 30 micrograms per minute, Greyson-Synephrine 300 micrograms per minute, epinephrine 12 mcg/min and unable to maintain target pressure (SBP in 150s). Given calcium chloride. patient with shaking movements all extremities, pupils 2mm and sluggish, no eye deviation. Rigors seemed most likely but unable to emergently rule out seizures so loaded with fosphenytoin to avoid secondary injury from seizure activity. WBC increasing and concern for HCAP so pancultured and placed on cefepime, vancomycin, azithromycin. Hydrocortisone 100 mg IV every 8 hours initiated due to concern for septic shock in a patient who has been refractory to all other above measures. Patient is to hemodynamically unstable and hypoxic for transport for neurologic imaging. Urine output has declined to 180-200 ML's per hour. Back off maintenance IV fluids to 200 ML's per hour. Bedside echo demonstrates decreased LV function with normal RV contractility and collapsible IVC suggesting ongoing maintenance fluid administration is appropriate. 10/15 additional visit: continued to deteriorate throughout the day. Seen multiple times. hypoxic on 100% fio2, flolan. required nimbex drip to maintain. repeat bedside critical care ultrasound still demonstrates severe LV dysfunction , decompressed RV, IVC more dilated than previous echo overnight, however still with respiratory variation. femoral arterial line placed with better waveform and higher pressure (likely SVR too high to allow accurate measurement of radial pressure). Pulse contour analysis without stroke volume variation, CI 3.6. SV 52mL. trialed additional albumin without improvement in hemodynamics. uop slower than before, but still significant salt wasting in the urine- sodium dropped to 125 from 132 despite already on 3% nacl infusion and aggressive sodium replacements. forced to give 23% nacl and salt tabs. declining clinically despite maximal therapy. 10/16: continues to be maximally critically ill. LV dysfunction persists. starting to get volume overloaded, but given concern for ongoing cerebral vasospasm, unable to actively diurese patient. sodium wasting persists, but uop downtrending slightly. very hypokalemic today, likely due to steroids. remains intubated, sedated, paralyzed, on flolan. CXR today appears worse with worsening airspace disease. Lactate remains slightly elevated, confirming persistent shock. 10/17: Lung infiltrates dense bilaterally, reflected in shunting and problems with oxygenation. Developed vasospasm on TCDs and required angiogram and intra- arterial verapamil again today. 10/18: SBP 160 - 170 range. FiO2 0.55. BNP > 5000. Not tolerating attempts at maintaining higher BP due to worsening heart failure. Several episodes of vasospasm. Watch daily TCDs closely. Sputum no growth. 10/19: Tmax 99.8. Currently 99. Remains on 4 vasopressors and epoprostenol Subjective 10/20: Yesterday. Returned IR for intra-arterial calcium channel jose infusion for vasospasm. Transcranial Dopplers today Still pending. Remains on significant vasopressor support. 10/21: Good response to diuresis, check BNP. TCDs pending. Objective Vital Signs Date Time Temp Pulse Resp B/P (MAP) Pulse Ox O2 Delivery O2 Flow Rate FiO2 10/21/16 14:00 97 10/21/16 12:07 95 60 10/21/16 12:00 98.6 20 158/90 (112) Intake and Output 10/21/16 10/21/16 10/22/16 08:00 16:00 00:00 Intake Total 3231 ml 2177 ml Output Total 2195 ml 1525 ml Balance 1036 ml 652 ml Result Diagram: 10/21/16 0420 10/21/16 0420 Other Results Microbiology Date/Time Source Procedure Growth Status 10/19/16 12:00 Sputum Endotracheal Gram Stain - Final Complete 10/19/16 12:00 Sputum Endotracheal Sputum Culture - Final NO GROWTH IN 48 HOURS. Complete 10/19/16 12:00 Urine Catheterized Urine Urine Culture - Final NO GROWTH IN 48 HOURS. Complete Laboratory Tests Test 10/21/16 03:30 Blood Gas Puncture Site ART LINE Blood Gas Patient Temperature 98.6 Blood Gas HCO3 24 mmol/L (22-26) Blood Gas Base Excess -0.7 mmol/L (-2-2) Blood Gas Oxygen Saturation 96 % (90-100) Arterial Blood pH 7.34 (7.380-7.420) Arterial Blood Partial Pressure CO2 46 mmHg (38-42) Arterial Blood Partial Pressure O2 104 mmHg (61-120) Arterial Blood Oxygen Content 9.4 Vol % (12.0-20.0) Arterial Blood Carboxyhemoglobin 1.4 % (0-4) Arterial Blood Methemoglobin 0.7 % (0-2) Blood Gas Hemoglobin 6.8 G/DL (12.0-16.0) Oxygen Delivery Device VENTILATOR Blood Gas Ventilator Setting 20/650/IT1.0/+12 Blood Gas Inspired Oxygen 65 % Imaging Last Impressions Chest X-Ray 10/20/16 0000 Signed Impressions: Service Date/Time: October 03:47 - CONCLUSION: 1. Stable tubes and lines. 2. Stable bilateral lower lung zone airspace disease. 3. Stable small right pleural effusion. 4. No significant interval change. Kev Vergara MD Transcranial Doppler Study Complete 10/19/16 0600 Signed Impressions: Service Date/Time: Wednesday, October 19, 2016 08:02 - CONCLUSION: Suspect developing right MCA vasospasm Yosvany Polk MD Liver Ultrasound 10/19/16 0000 Signed Impressions: Service Date/Time: Wednesday, October 19, 2016 11:20 - CONCLUSION: 1. Sludge filled gallbladder with thickened wall. 2. Moderate size bilateral pleural effusions and mild upper abdominal ascites. Santos Vazquez MD Head CT 10/17/16 0000 Signed Impressions: Service Date/Time: Monday, October 17, 2016 15:06 - CONCLUSION: Ventricles are slightly larger without ventriculostomy. Edema in the left hemisphere the brain herniating through the operative site. Remington Woodward MD FACR Cerebral Arteriogram 10/17/16 0000 Signed Impressions: Service Date/Time: Monday, October 17, 2016 00:00 - CONCLUSION: 1. Uncompensated spasmolysis of the left middle cerebral artery Harvey Morejon MD Infusion Non-thrombolysis 10/14/16 1103 Signed Impressions: Service Date/Time: Friday, October 14, 2016 10:21 - CONCLUSION: 1. Uncomplicated infusion for spasmolysis Harvey Morejon MD Neck CTA 10/07/16 0000 Signed Impressions: Service Date/Time: Friday, October 07, 2016 15:03 - CONCLUSION: 1. Mild carotid bulb atherosclerotic calcification bilaterally. However, no significant stenosis is present in either internal carotid artery. 2. Paranasal sinus mucoperiosteal thickening. 3. Please refer to brain CTA report for description of the intracranial findings. Yosvany Ramirez MD Head CTA 10/07/16 0000 Signed Impressions: Service Date/Time: Friday, October 07, 2016 15:03 - CONCLUSION: 1. 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 2. Large left subdural hematoma measuring 1.3 cm in depth with a significant, 1.6 cm left to right subfalcine shift. Joni Shelton MD Objective Remarks GENERAL: 56-year-old male, currently sedated and paralyzed and orotracheally intubated/critically ill HEAD: Status post left craniectomy. Incision is clean dry and intact without EYES: About 4 mm bilaterally and questionably reactive NECK: Supple, trachea midline. orotracheal tube in place. CARDIOVASCULAR: Tachycardic, RR. S1, S2. No S4. 2/6 murmur left lower sternal border RESPIRATORY: Coarse rhonchi bilaterally anterior-posterior. Diminished breath sounds bilateral lower lobes. GASTROINTESTINAL: Abdomen soft, non-tender, nondistended. Hypoactive bowel sounds are appreciated MUSCULOSKELETAL: Ischemic changes to left index, right fourth and fifth digits. Well-perfused. NEURO EXAM: RASS -5. [id number] 04. No gag or cough. Procedures 10/13 Four-vessel cerebral angiography with verapamil treatment of vasospasm Date of Insertion: Oct 14, 2016 Line: Central Venous Catheter Side: Right Location: Subclavian A/P Assessment and Plan Neuro/Psych Status post left frontotemporal parietal craniectomy 10/08 for evacuation subdural hematoma/duraplasty Left subdural hematoma - 1.3 cm with 1.6 shift left to right Subarachnoid hemorrhage contents 5, Carroll grade 4 - left P-comm status post 4 coiling 10/08 - TCD's daily: 10/19 - vasospasm -intra-arterial verapamil - Nimodipine 60 mg every 4 hours for vasospasm to complete 21 days. Initiated - Levetiracetam 500 mg IV twice a day for seizure prophylaxis - 10/13 and 10/14 and 10/17) 10/19 left MCA territory vasospasm, status post successful verapamil treatment by IR with 20 mg verapamil - SBP goal 180 - 220 mmHg, although only able to press to 160 on maximal therapy given cardiac dysfunction. - check phenytoin level -> 7. - 10/17 CT brain - less hemisphere edema with herniation through left craniotomy site and CT brain for today - Dr. Perry/neurosurgery - Currently on midazolam 4 mg an hour and fentanyl drip at 150 an hour - Currently cisatracurium drip at 4 g per kilo per minute titrate to maintain [id number] 2 out of 4 Respiratory: Acute hypoxic Respiratory failure-ARDS Noncardiogenic/neurogenic pulmonary edema - pulmonary edema, may be non-cardiogenic/neurogenic from SAH/vasospasm. cannot diurese due to active cerebral vasospasm. - [facility] /02/24/54 - Ventilator bundle - Albuterol/age-appropriate versus every 6 hours with albuterol aerosols every 2 hours. Dyspnea - Epoprostenol 50 ng/kg/min aerosolized continue - Currently not appropriate for prone therapy due to subarachnoid hemorrhage/ cardiac dysfunction - Follow-up ABG/chest x-ray in a.m. Cardiovascular: Severe shock - septic and cardiogenic Severe LV dysfunction secondary to SAH Elevated troponin- secondary to SAH, unlikely to be ACS. Pulmonary hypertension -Currently on phenylephrine at 300 g per minute /norepinephrine 18 micrograms a minute, vasopressin 0.04 units a minute, epinephrine at 20 micrograms a minute to maintain to start blood pressure greater than 150 Continue stress dose hydrocortisone 100 mg IV every 8 hours - On milrinone 0.5 mics per kilogram per minute - goal euvolemia. +3 L. Will give low-dose diuretic today Currently off maintenance IV fluids Maximize concentration of all vasopressors - troponin elevation peak 4.71 likely secondary to his cardiac dysfunction secondary to SAH. unlikely to be ACS, and at this point unable to evaluate or intervene on coronary ischemia given how critically ill he is. Echocardiogram 10/14/16 revealed EF 40-45%. Septal hypokinesis. Moderate MR. Severe pulmonary hypertension with pulmonary artery pressures estimated 61 mmHg Cardiac index 3.7. SVV 6. Renal: Cerebral Salt Wasting/SIADH - q1h uop -- Strict I/Os - BNP > 5000 on 10/18 See below. Creatinine currently within normal limits FEN/GI: Severe hyponatremia Hypokalemia Elevated transaminases Hyperammonia -Currently on sodium chloride 3gm po TID - 3% NaCl 30cc/hr. - serial sodiums every 6 hours - ICU electrolyte protocol - aggressively replace potassium losses. - NPO while in shock. Will start TPN today - Lansoprazole 30 mg by tube daily for GI prophylaxis -Docusate sodium 100 mg twice a day, senna liquid 8.6 mg twice a day and polyethylene glycol 3350 17 g twice a day for bowel regimen Start lactulose 30 cc twice a day. Check ammonia level in a.m. Check liver ultrasound. Recheck LFTs in a.m. Likely secondary to hypoperfusion /shock Heme/ID: Septic Shock Possible HCAP -10/18 d/c empiric abx: vancomycin, cefepime, azithromycin. Will antonio culture again today and restart antibiotics with vancomycin, piperacillin/tazobactam on 10/19 Pertinent cultures 10/15 - blood cultures - 1 out of 4 anaerobic gram-negative cocci possibly Veillonella 10/15 - sputum - beta strep not A, strep species 10/19 - urine - pending 10/19 - sputum - pending We'll recheck blood cultures 2 today Endocrine: Presumed Adrenal Insufficiency -Discontinued fludrocortisone 10/18. Monitor sodium 6 hours. - Current hydrocortisone 100 mg every 8 hours. Sliding-scale insulin with Novulog -Accu-Cheks every 4 hours to maintain euglycemia [place] protocol. Prophylaxis: GI Prophylaxis - lansoprazole DVT Prophylaxis-- SCDs, heparin subcutaneous Lines: - 10/14 right SC TLC - 10/14 right radial art line, removed 10/14 - 10/15 left radial art line, removed 10/16 - 10/15 left femoral art line - Erica Overall impression: Remains critically ill with unstable vasospasm following spontaneous subarachnoid hemorrhage. Critical care 43 mins Rodriguez Collazo MD Oct 21, 2016 15:09
[2016-10-21 15:48] LABS: FREE T3 0.9 PG/ML (2.18-3.98); FREE T4 0.7 NG/DL (0.76-1.46)
[2016-10-21] MEDS: MILRINONE INJ 20 MG in SODIUM CHLORIDE 0.9% INJ 80 ML IV SCH ×2 (16:31→16:57)
[2016-10-21] MEDS: VASOPRESSIN INJ 40 UNITS in DEXTROSE 5% IN WATER 100ML INJ 98 ML IV SCH ×2 (16:32)
[2016-10-21] MEDS: CLINIMIX E 4.25/25 2000 mL- >42 mls/hr IV-CENTRAL SCH ×3 (20:10)
[2016-10-21] MEDS: FAT EMULSION 20% INJ 250 ML (@10 mls/hr) IV-CENTRAL SCH (20:11)
[2016-10-22] VITALS (14 sets, daily range): BP systolic 141–166; BP diastolic 78–94; PULSE 74–90; RESP 20–24; TEMP 97.7–98.7; O2SAT 87–100
[2016-10-22] MEDS: MIDAZOLAM 100 MG/100 ML INJ 100 ML IV PRN ×2 (00:27→17:49)
[2016-10-22] MEDS: niMODipine 30 MG CAP PO SCH ×6 (00:27→20:09)
[2016-10-22] MEDS: PIPERACIL-TAZO 4.5 GM PREMIX 100 ML IV SCH ×4 (00:28→17:50)
[2016-10-22] MEDS: INSULIN ASPART SUPPLEMENTAL SCALE SQ SCH ×6 (00:41→20:32)
[2016-10-22] MEDS: MILRINONE INJ 20 MG in SODIUM CHLORIDE 0.9% INJ 80 ML IV SCH ×4 (00:54→20:04)
[2016-10-22] MEDS: RESP: ALBUTEROL 2.5 MG/IPRATROPIUM 0.5 MG NEB (SCH) INH ×4 (04:06→20:32)
[2016-10-22] MEDS: HYDROCORTISONE SOD SUCCINATE 100 MG VIAL IV PUSH SCH ×3 (04:34→20:08)
[2016-10-22] MEDS: CHLORHEXIDINE GLUCONATE 2 % 1 PACK (2 CLOTHS) TOP SCH (04:38)
[2016-10-22] MEDS: VANCOMYCIN 1,500 MG/NS 500 ML IV SCH ×2 (04:38)
[2016-10-22] MEDS: fentaNYL DRIP 250 ML IV PRN (04:53)
[2016-10-22 05:00] LABS: MAGNESIUM 2.2 MG/DL (1.5-2.5)
[2016-10-22] MEDS: levETIRAcetam INJ 500 MG in SODIUM CHLORIDE 0.9% INJ 100 ML IV SCH ×2 (05:41→17:50)
[2016-10-22] MEDS: HEPARIN SODIUM - SQ 10,000 UNITS/ML VIAL SQ SCH ×3 (05:42→21:59)
[2016-10-22] MEDS: FOSPHENYTOIN SODIUM 100 MG PE/2 ML VIAL IV SCH ×3 (05:42→21:56)
[2016-10-22] MEDS: POTASSIUM CHLOR 40 MEQ PREMIX 100 ML IV PRN ×3 (05:43→21:38)
[2016-10-22] MEDS: VASOPRESSIN INJ 40 UNITS in DEXTROSE 5% IN WATER 100ML INJ 98 ML IV SCH ×4 (06:52→20:04)
[2016-10-22] MEDS: CHLORHEXIDINE 0.12% (ORAL KIT) 15 ML CUP MT SCH ×2 (08:00→20:09)
[2016-10-22] MEDS: ARTIFICIAL TEARS OPTH SOLN 15 ML BTL EACH EYE SCH ×3 (09:00→17:50)
[2016-10-22] MEDS: SODIUM CHLORIDE 0.9% FLUSH 10 ML FLUSH IV FLUSH SCH ×2 (09:00→20:09)
[2016-10-22] MEDS: LACTULOSE SYRUP 20 GM/30 ML CUP OG-TUBE SCH ×2 (09:21→20:10)
[2016-10-22] MEDS: LANSOPRAZOLE SOLUTAB 30 MG TAB NG SCH (09:21)
[2016-10-22] MEDS: SENNOSIDES SYRUP 8.8 MG/5 ML CUP PO SCH ×2 (09:23→20:10)
[2016-10-22] MEDS: SODIUM CHLORIDE 1 GRAM TAB PO SCH ×3 (09:23→18:03)
[2016-10-22] MEDS: DOCUSATE SODIUM 100 MG/10 ML UDC PO SCH ×2 (09:23→20:10)
[2016-10-22] MEDS: POLYETHYLENE GLYCOL 17 GM PKG OG-TUBE SCH ×2 (09:26→20:10)
--- NOTE | 2016-10-22 10:19 | HHI.CCPN ---
Subjective Remarks/Hospital Course 10/07: 56-year-old male presents with intracranial bleed. Patient was transferred from [facility] at [facility]. As per the paramedics and the nurse who assisted the patient said that patient earlier this morning was coming down the stairs when he started feeling some left-sided weakness and numbness. He called 911 and by the time EMS arrived they detected some deficit and called a stroke alert. Patient was taken to [facility]. When patient arrived his mental status started to decline and he was intubated emergently in the ER. A CAT scan of the head showed subarachnoid and subdural bleed. He was taking emergently to an angio suite for coiling of the aneurysm and later on to OR for subdural hematoma evacuation. 10/08: Remains sedated, orally intubated on mechanical ventilation. Arouses off sedation and following commands with both upper extremities earlier. Ventriculostomy in place. ICP 7, CPP mid 80s. 10/09: Remains sedated, orally intubated on mechanical ventilation. Arouses off sedation and follows commands with both upper extremities. Ventriculostomy in place. 10/10: Remains sedated, orally intubated on mechanical ventilation. Arouses off sedation and follows commands and both upper extremities. Ventriculostomy in place. ICP 5. Failed C Pap trial yesterday. 10/11: Extubated on 10/10, tolerating well. Awake and alert. Appears confused, moving all 4 extremities. Ventriculostomy discontinued today by neurosurgery 10/13: Patient has developed severe vasospasm at the left MCA territory on TCD's that was treated with IV route verapamil 10/14: patient extubated overnight. was originally following commands and neuro intact. TCDs this morning with increase LIs over yesterday, particularly Left MCA territory. On my evaluation early this morning, patient was aphasic, not moving the right side of his body, not following commands. SBP 140s at that time. net 2L negative/24h and uop almost 1L/hr at the time. I immediately bolused with 2L NS iv, placed arterial and central lines, started phenylephrine , increased SBP to goal 200 - 220 mmHg. called interventional neuroradiology and accompanied patient down personally to IR for IA verapamil again. I remained with the patient managing his hemodynamics down in IR and providing anxiolysis IV. I accompanied patient back up to [facility] where patient again was neuro intact and following commands. Sodium downtrending to 135 and urine studies and serum osms suggestive of urine sodium losses and high uop. added Florinef to mitigate sodium losses, and increased mivf to 500cc/hr to maintain euvolemia. later in the day patient decompensated requiring intubation for hyoxemia, cxr suggestive of pulmonary edema. 2d echo with evidence of EF 40%, septal hypokinesis, moderate MR. On levo, vaso, phenylephrine. difficult to get to goal SBP 200 mmHg, likely due to myocardial dysfunction. decreased goal to 180 - 200 mmHg to balance cardiac vs. neurologic goals. 10/15 Patient was discussed with Dr. Sullivan at shift change. Isuprel was initiated in effort to improve cardiac output as dobutamine not available and concerned with use of milrinone given long half life. Systolic blood pressure was relatively stable with perhaps some modest improvement from 170s to 180s for several hours after initiation. Notified when patient became abruptly hypotensive despite vasopressin, levophed 20 mcg/min, Greyson-Synephrine 300 mcg/m. He was also hypoxemic with sats in 80s despite PCV with PEEP 8 and FiO2 100%, respiratory rate in the 30s. He had decreased breath sounds bilaterally and was concerned for air trapping so removed from mechanical ventilation and bagged without improvement. Placed patient back on mechanical ventilation and provide recruitment maneuvers and increased PEEP to 12 which resulted in improvement of sats to 88% to 92%. Ordered Flolan. Discontinued isuprel and initiated epinephrine. R radial art line would not draw blood . Performed u/s guided femoral artery stick to confirm hypoxemia on ABG given poor wave form on pulse ox and PaO2 was 58. Placed new L radial art line and this resulted in ~ 30 point increase in SBP relative to prior line but patient ultimately on vasopressin, levophed 30 micrograms per minute, Greyson-Synephrine 300 micrograms per minute, epinephrine 12 mcg/min and unable to maintain target pressure (SBP in 150s). Given calcium chloride. patient with shaking movements all extremities, pupils 2mm and sluggish, no eye deviation. Rigors seemed most likely but unable to emergently rule out seizures so loaded with fosphenytoin to avoid secondary injury from seizure activity. WBC increasing and concern for HCAP so pancultured and placed on cefepime, vancomycin, azithromycin. Hydrocortisone 100 mg IV every 8 hours initiated due to concern for septic shock in a patient who has been refractory to all other above measures. Patient is to hemodynamically unstable and hypoxic for transport for neurologic imaging. Urine output has declined to 180-200 ML's per hour. Back off maintenance IV fluids to 200 ML's per hour. Bedside echo demonstrates decreased LV function with normal RV contractility and collapsible IVC suggesting ongoing maintenance fluid administration is appropriate. 10/15 additional visit: continued to deteriorate throughout the day. Seen multiple times. hypoxic on 100% fio2, flolan. required nimbex drip to maintain. repeat bedside critical care ultrasound still demonstrates severe LV dysfunction , decompressed RV, IVC more dilated than previous echo overnight, however still with respiratory variation. femoral arterial line placed with better waveform and higher pressure (likely SVR too high to allow accurate measurement of radial pressure). Pulse contour analysis without stroke volume variation, CI 3.6. SV 52mL. trialed additional albumin without improvement in hemodynamics. uop slower than before, but still significant salt wasting in the urine- sodium dropped to 125 from 132 despite already on 3% nacl infusion and aggressive sodium replacements. forced to give 23% nacl and salt tabs. declining clinically despite maximal therapy. 10/16: continues to be maximally critically ill. LV dysfunction persists. starting to get volume overloaded, but given concern for ongoing cerebral vasospasm, unable to actively diurese patient. sodium wasting persists, but uop downtrending slightly. very hypokalemic today, likely due to steroids. remains intubated, sedated, paralyzed, on flolan. CXR today appears worse with worsening airspace disease. Lactate remains slightly elevated, confirming persistent shock. 10/17: Lung infiltrates dense bilaterally, reflected in shunting and problems with oxygenation. Developed vasospasm on TCDs and required angiogram and intra- arterial verapamil again today. 10/18: SBP 160 - 170 range. FiO2 0.55. BNP > 5000. Not tolerating attempts at maintaining higher BP due to worsening heart failure. Several episodes of vasospasm. Watch daily TCDs closely. Sputum no growth. 10/19: Tmax 99.8. Currently 99. Remains on 4 vasopressors and epoprostenol Subjective 10/20: Yesterday. Returned IR for intra-arterial calcium channel jose infusion for vasospasm. Transcranial Dopplers today Still pending. Remains on significant vasopressor support. 10/21: Good response to diuresis, check BNP. TCDs pending. Heart failure remains a major problem. 10/22: CVP 21 - 22, finger tips blue, digits pale white despite high dose milrinone dilation. Greyson and vaso much reduced. Will try diltiazem gtt for digital ischemia. Urine remains > 200/hr and proximal limbs are well perfused. This digital ischemia appears to be a local phenomenon ala Raynaud's. New subcutaneous emphysema right anterior chest wall. Objective Vital Signs Date Time Temp Pulse Resp B/P (MAP) Pulse Ox O2 Delivery O2 Flow Rate FiO2 10/22/16 09:29 99 60 10/22/16 09:23 82 171/98 10/22/16 08:00 98.7 20 Intake and Output 10/22/16 10/22/16 10/22/16 07:59 15:59 23:59 Intake Total 3532 ml Output Total 1410 ml Balance 2122 ml Result Diagram: 10/21/16 0420 10/22/16 0415 Other Results Microbiology Date/Time Source Procedure Growth Status 10/19/16 12:00 Sputum Endotracheal Gram Stain - Final Complete 10/19/16 12:00 Sputum Endotracheal Sputum Culture - Final NO GROWTH IN 48 HOURS. Complete 10/19/16 12:00 Urine Catheterized Urine Urine Culture - Final NO GROWTH IN 48 HOURS. Complete Imaging Last Impressions Chest X-Ray 10/20/16 0000 Signed Impressions: Service Date/Time: October 03:47 - CONCLUSION: 1. Stable tubes and lines. 2. Stable bilateral lower lung zone airspace disease. 3. Stable small right pleural effusion. 4. No significant interval change. Kev Vergara MD Transcranial Doppler Study Complete 10/19/16 0600 Signed Impressions: Service Date/Time: Wednesday, October 19, 2016 08:02 - CONCLUSION: Suspect developing right MCA vasospasm Yosvany Polk MD Liver Ultrasound 10/19/16 0000 Signed Impressions: Service Date/Time: Wednesday, October 19, 2016 11:20 - CONCLUSION: 1. Sludge filled gallbladder with thickened wall. 2. Moderate size bilateral pleural effusions and mild upper abdominal ascites. Santos Vazquez MD Head CT 10/17/16 0000 Signed Impressions: Service Date/Time: Monday, October 17, 2016 15:06 - CONCLUSION: Ventricles are slightly larger without ventriculostomy. Edema in the left hemisphere the brain herniating through the operative site. Remington Woodward MD FACR Cerebral Arteriogram 10/17/16 0000 Signed Impressions: Service Date/Time: Monday, October 17, 2016 00:00 - CONCLUSION: 1. Uncompensated spasmolysis of the left middle cerebral artery Harvey Morejon MD Infusion Non-thrombolysis 10/14/16 1103 Signed Impressions: Service Date/Time: Friday, October 14, 2016 10:21 - CONCLUSION: 1. Uncomplicated infusion for spasmolysis Harvey Morejon MD Neck CTA 10/07/16 0000 Signed Impressions: Service Date/Time: Friday, October 07, 2016 15:03 - CONCLUSION: 1. Mild carotid bulb atherosclerotic calcification bilaterally. However, no significant stenosis is present in either internal carotid artery. 2. Paranasal sinus mucoperiosteal thickening. 3. Please refer to brain CTA report for description of the intracranial findings. Yosvany Ramirez MD Head CTA 10/07/16 0000 Signed Impressions: Service Date/Time: Friday, October 07, 2016 15:03 - CONCLUSION: 1. 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 2. Large left subdural hematoma measuring 1.3 cm in depth with a significant, 1.6 cm left to right subfalcine shift. Joni Shelton MD Objective Remarks GENERAL: 56-year-old male, currently sedated and paralyzed and orotracheally intubated/critically ill HEAD: Status post left craniectomy. Incision is clean dry and intact without EYES: About 4 mm bilaterally and questionably reactive NECK: Supple, trachea midline. orotracheal tube in place. CARDIOVASCULAR: Tachycardic, RR. S1, S2. No S4. 2/6 murmur left lower sternal border RESPIRATORY: Coarse rhonchi bilaterally anterior-posterior. Diminished breath sounds bilateral lower lobes. GASTROINTESTINAL: Abdomen soft, non-tender, nondistended. Hypoactive bowel sounds are appreciated MUSCULOSKELETAL: Ischemic changes to several finger tips, pale white proximal digits. Arms and legs warm, well-perfused. NEURO EXAM: RASS -5. Procedures 10/13 Four-vessel cerebral angiography with verapamil treatment of vasospasm Date of Insertion: Oct 14, 2016 Line: Central Venous Catheter Side: Right Location: Subclavian A/P Assessment and Plan Neuro/Psych Status post left frontotemporal parietal craniectomy 10/08 for evacuation subdural hematoma/duraplasty Left subdural hematoma - 1.3 cm with 1.6 shift left to right Subarachnoid hemorrhage contents 5, Carroll grade 4 - left P-comm status post 4 coiling 10/08 - TCD's daily: 10/19 - vasospasm -intra-arterial verapamil - Nimodipine 60 mg every 4 hours for vasospasm to complete 21 days. Initiated - Levetiracetam 500 mg IV twice a day for seizure prophylaxis - 10/13 and 10/14 and 10/17) 10/19 left MCA territory vasospasm, status post successful verapamil treatment by IR with 20 mg verapamil - SBP goal 180 - 220 mmHg, although only able to press to 160 on maximal therapy given cardiac dysfunction. - check phenytoin level -> 7. - 10/17 CT brain - less hemisphere edema with herniation through left craniotomy site and CT brain for today - Dr. Perry/neurosurgery - Currently on midazolam 4 mg an hour and fentanyl drip at 150 an hour - 10/21 stopped cisatracurium drip at 4 g per kilo per minute titrate to maintain [id number] 2 out of 4 Respiratory: Acute hypoxic Respiratory failure-ARDS Noncardiogenic/neurogenic pulmonary edema - pulmonary edema, may be non-cardiogenic/neurogenic from SAH/vasospasm. cannot diurese due to active cerebral vasospasm. - PRVC 20//02/24/54 - Ventilator bundle - Albuterol/age-appropriate versus every 6 hours with albuterol aerosols every 2 hours. Dyspnea - Epoprostenol 50 ng/kg/min aerosolized continue - Currently not appropriate for prone therapy due to subarachnoid hemorrhage/ cardiac dysfunction - Follow-up ABG/chest x-ray in a.m. - Reduce PEEP to 10 Cardiovascular: Severe shock - septic and cardiogenic Severe LV dysfunction secondary to SAH Elevated troponin- secondary to SAH, unlikely to be ACS. Pulmonary hypertension -Currently on phenylephrine at 300 g per minute /norepinephrine 18 micrograms a minute, vasopressin 0.04 units a minute, epinephrine at 20 micrograms a minute to maintain to start blood pressure greater than 150 Continue stress dose hydrocortisone 100 mg IV every 8 hours - On milrinone 0.5 mics per kilogram per minute - goal euvolemia. +3 L. Will give low-dose diuretic today Currently off maintenance IV fluids Maximize concentration of all vasopressors - troponin elevation peak 4.71 likely secondary to his cardiac dysfunction secondary to SAH. unlikely to be ACS, and at this point unable to evaluate or intervene on coronary ischemia given how critically ill he is. Echocardiogram 10/14/16 revealed EF 40-45%. Septal hypokinesis. Moderate MR. Severe pulmonary hypertension with pulmonary artery pressures estimated 61 mmHg Cardiac index 3.8. SVV 10. Renal: Cerebral Salt Wasting/SIADH - q1h uop -- Strict I/Os - BNP > 5000 on 10/18 See below. Creatinine currently within normal limits FEN/GI: Severe hyponatremia Hypokalemia Elevated transaminases Hyperammonia -Currently on sodium chloride 3gm po TID - 3% NaCl 30cc/hr. - serial sodiums every 6 hours - ICU electrolyte protocol - aggressively replace potassium losses. - NPO while in shock. Will start TPN today - Lansoprazole 30 mg by tube daily for GI prophylaxis -Docusate sodium 100 mg twice a day, senna liquid 8.6 mg twice a day and polyethylene glycol 3350 17 g twice a day for bowel regimen Start lactulose 30 cc twice a day. Check ammonia level in a.m. Check liver ultrasound. Recheck LFTs in a.m. Likely secondary to hypoperfusion /shock Heme/ID: Septic Shock Possible HCAP -10/18 d/c empiric abx: vancomycin, cefepime, azithromycin. Will antonio culture again today and restart antibiotics with vancomycin, piperacillin/tazobactam on 10/19 Pertinent cultures 10/15 - blood cultures - 1 out of 4 anaerobic gram-negative cocci possibly Veillonella 10/15 - sputum - beta strep not A, strep species 10/19 - urine - pending 10/19 - sputum - pending We'll recheck blood cultures 2 today Endocrine: Presumed Adrenal Insufficiency -Discontinued fludrocortisone 10/18. Monitor sodium 6 hours. - Current hydrocortisone 100 mg every 8 hours. Sliding-scale insulin with Novulog -Accu-Cheks every 4 hours to maintain euglycemia Cordova protocol. Prophylaxis: GI Prophylaxis - lansoprazole DVT Prophylaxis-- SCDs, heparin subcutaneous Lines: - 10/14 right SC TLC, removed 10/22 - 10/14 right radial art line, removed 10/14 - 10/15 left radial art line, removed 10/16 - 10/15 left femoral art line - 10/22 left groin triple lumen placed - Maldonado Overall impression: Remains critically ill with unstable vasospasm following spontaneous subarachnoid hemorrhage. Digital ischemia has not improved after reducing vasopressors on and . Milrinone improved CO but ischemia persists. BNP 2637 consistent with acute on chronic heart failure. No dobutamine available but will increase milrinone to 0.75. Urine output confirms good renal perfusion, CVP confirms good preload. He will lose fingers due to heart failure and local digital vasospasm. Staph on blood - ? possible embolic debris. Change out lines. Check CXR re: Right chest wall subcutaneous emphysema. Critical care 47 mins aside from procedures. Rodriguez Collazo MD Oct 22, 2016 10:19
[2016-10-22] MEDS: DILTIAZEM INJ 125 MG in SODIUM CHLORIDE 0.9% INJ 100 ML IV PRN ×2 (11:27→20:06)
[2016-10-22] MEDS ORDERED: PHARMACY ORDERED LAB ONE (12:45)
--- NOTE | 2016-10-22 14:03 | PD.PROCEDR ---
Procedure Note Procedure DX: Subarachnoid Hemorrhage, Vasopressor dependent OP: Insertion left common femoral vein central venous line ([id number]) Procedure: Time out. Left groin prepped and draped. Using ultrasound guidance, the left common femoral vein was cannulated and wire easily advanced. Catheter passed over wire to 19 cm. Lumens aspirated and flushed. Dressing applied. Rodriguez Collazo MD Oct 22, 2016 14:03
[2016-10-22] MEDS ORDERED: FUROSEMIDE 40 MG/4 ML VIAL IV PUSH ONE (14:30)
[2016-10-22] MEDS: POTASSIUM CHLOR 40 MEQ PREMIX 100 ML IV SCH ×2 (14:46→18:05)
--- NOTE | 2016-10-22 14:48 | RADRPT ---
EXAM DATE/TIME: 10/22/2016 13:54 [facility] COMPARISON: CHEST SINGLE AP, October 21, 2016, 3:47. INDICATIONS : Attempted left central line placement. Rule out pneumothorax. MEDICAL HISTORY : Seizures. Subarachnoid hemorrhage. Hypertension. SURGICAL HISTORY : Left craniotomy. Ventriculostomy catheter ENCOUNTER: Subsequent ACUITY: 1 week PAIN SCORE: Non-responsive. LOCATION: Bilateral chest FINDINGS: Single AP view of the chest. Endotracheal tube, nasogastric tube, and right subclavian central venous catheter remain in place. Persistent bilateral pulmonary opacity. No significant interval change. No evidence of pneumothorax. CONCLUSION: No significant change. No evidence of pneumothorax. Paddy Pineda MD on October 22, 2016 at 14:46 Board Certified Radiologist. This report was verified electronically.
--- NOTE | 2016-10-22 15:49 | HHI.NSPN ---
(Thomas Le) History Chief Complaint: Unable to obtain due to patient's clinical condition. (Thomas Le) Interval History This is a 56-year-old male brought to the emergency room as an emergency transfer from another institution with history of intracranial bleed. He was transferred from [facility] and [facility]. Apparently the patient said that patient earlier this morning was coming down the stairs when he started feeling some left-sided weakness and numbness. He called 911 and by the time EMS arrived they detected severe neurological deficits and called a stroke alert. No seizure activity reported. No tongue biting. No incontinence of stool or urine. Patient was taken to [facility]. Apparently he was not able to move his right side . When patient arrived his mental status started to decline and he was intubated emergently in the ER for airway protection. A CT scan of the head showed extensive subarachnoid bleed. In addition he had a sizable subdural hematoma. He was brought emergently on the ventilator. He was on a propofol drip and well sedated. GCS was 3. He was on a Cardene drip and blood pressure was in the 120s. Neurosurgical consultation was requested 10/08. POD #1 Open eyes and follows commands 10/12. Doing very well. Neurologically stable. Patient is in restraints secondary to pulling out his Maldonado multiple times. 10/13. Much more lethargic, difficult to speak with new aphasia 10/14. Improved after angiography. Today he developed new onset of aphasia and right hemiparesis 10/17. Intubated and sedated. Lung infiltrates dense bilaterally, reflected in shunting and problems with oxygenation. 10/18: underwent endovascular verapamil infusion to left MCA vasospasm yesterday. TCD today pending. left flap pak today. Intubated and sedated. continues to be on multiple pressors. on 3% NS. 10/19: currently unstable for travel for repeat CT Head this am. no changes with neuro checks, remains intubated, sedated. pupils equal. continues on multiple pressors support 10/20: intubated and mildly sedated. remains on multiple pressors. pneumonia worsening. TCD this am reports slight increase in flow velocity to left, he underwent cerebral angiography yesterday with endovascular verapamil infusion right ICA. 10/21: intubated, sedated on fentanyl and versed. On Nimbex. 10/22: The patient remains intubated and sedated with midazolam. He is on a fentanyl drip as well. He is on multiple cardiac drips. The cisatracurium drip was discontinued yesterday. (Thomas Le) System Review Comments Unable to obtain due to patient's clinical condition. (Thomas Le) Exam Results 10/20/16 10/20/16 10/21/16 10/21/16 10/22/16 10/22/16 06:00 18:00 06:00 18:00 06:00 18:00 Intake Total 3742 ml 4287 ml 4872 ml 4665 ml 5742.2 ml Output Total 1815 ml 2810 ml 2745 ml 3025 ml 2865 ml Balance 1927 ml 1477 ml 2127 ml 1640 ml 2877.2 ml IV Total 3742 ml 4037 ml 3780 ml 3657 ml 5742.2 ml TPN/PPN 504 ml 885 ml Lipid 68 ml 123 ml Packed Cells 400 ml Blood Product IV Normal Saline Flush 250 ml Tube Irrigant 120 ml Output Urine Total 1815 ml 2810 ml 2745 ml 3025 ml 2865 ml Vital Signs Date Time Temp Pulse Resp B/P (MAP) Pulse Ox O2 Delivery O2 Flow Rate FiO2 10/22/16 15:06 79 143/79 10/22/16 12:33 85 138/75 10/22/16 12:09 82 137/79 10/22/16 12:00 97.9 85 20 141/81 (101) 97 10/22/16 12:00 85 10/22/16 11:27 84 152/88 10/22/16 10:32 67 168/96 10/22/16 10:20 82 168/96 10/22/16 09:29 99 60 10/22/16 09:23 82 171/98 10/22/16 08:00 60 10/22/16 08:00 80 10/22/16 08:00 98.7 82 20 166/93 (117) 100 10/22/16 06:52 79 161/90 10/22/16 06:00 82 10/22/16 04:20 98 60 10/22/16 04:00 97.7 87 20 166/94 (118) 98 10/22/16 04:00 60 10/22/16 04:00 87 10/22/16 02:00 90 10/22/16 00:54 86 156/87 10/22/16 00:28 100 60 10/22/16 00:00 97.8 87 20 161/92 (115) 87 10/22/16 00:00 60 10/22/16 00:00 87 10/21/16 22:59 87 155/84 10/21/16 22:50 98 60 10/21/16 22:00 92 10/21/16 21:39 100 60 10/21/16 20:00 60 10/21/16 20:00 97.8 94 20 157/89 (111) 96 10/21/16 20:00 93 10/21/16 18:09 60 10/21/16 18:00 91 10/21/16 16:57 94 155/87 10/21/16 16:32 88 158/88 10/21/16 16:31 93 156/86 10/21/16 16:10 100 80 10/21/16 16:00 80 10/21/16 16:00 97.9 94 20 158/90 (112) 100 10/21/16 16:00 94 10/21/16 14:00 97 10/21/16 12:07 95 60 10/21/16 12:00 98.6 99 20 158/90 (112) 97 10/21/16 12:00 99 10/21/16 12:00 60 10/21/16 10:00 103 10/21/16 09:28 102 162/92 10/21/16 08:00 60 10/21/16 08:00 98.5 103 20 166/96 (119) 100 10/21/16 08:00 103 10/21/16 07:57 99 60 10/21/16 06:00 110 10/21/16 04:12 95 65 10/21/16 04:00 99.0 112 20 168/94 (118) 92 10/21/16 04:00 112 10/21/16 04:00 65 10/21/16 02:00 110 10/21/16 01:20 93 65 10/21/16 00:00 99.2 108 20 160/88 (112) 93 10/21/16 00:00 65 10/21/16 00:00 108 10/20/16 23:21 107 155/85 10/20/16 23:21 107 157/86 10/20/16 22:23 95 65 10/20/16 22:00 65 10/20/16 22:00 104 10/20/16 21:54 106 149/82 10/20/16 20:00 70 10/20/16 20:00 99.0 104 20 144/84 (104) 99 10/20/16 20:00 104 10/20/16 19:25 99 70 10/20/16 18:00 108 10/20/16 16:00 99.2 111 20 156/84 (108) 100 10/20/16 16:00 80 10/20/16 16:00 111 10/20/16 15:50 89 65 10/20/16 15:18 115 166/94 10/20/16 15:14 115 170/85 10/20/16 14:00 114 10/20/16 12:00 98.9 116 20 159/86 (110) 96 10/20/16 12:00 80 10/20/16 12:00 114 10/20/16 11:30 94 65 10/20/16 10:00 116 10/20/16 08:49 95 70 10/20/16 08:47 116 164/90 10/20/16 08:00 99.5 116 20 165/90 (115) 97 10/20/16 08:00 80 10/20/16 08:00 116 10/20/16 08:00 115 164/91 10/20/16 06:00 113 10/20/16 04:30 93 80 10/20/16 04:00 80 10/20/16 04:00 99.2 112 20 162/92 (115) 98 10/20/16 04:00 112 10/20/16 03:59 112 161/92 10/20/16 03:58 112 163/81 10/20/16 02:00 111 10/20/16 01:18 95 90 10/20/16 01:08 109 149/83 10/20/16 01:07 109 149/83 10/20/16 00:00 98.4 108 20 152/86 (108) 93 10/20/16 00:00 100 10/20/16 00:00 108 10/19/16 22:50 91 100 10/19/16 22:34 109 163/88 10/19/16 22:00 108 10/19/16 20:40 91 80 10/19/16 20:00 110 10/19/16 20:00 80 10/19/16 20:00 99.2 110 20 158/86 (110) 94 10/19/16 19:52 109 157/85 10/19/16 19:52 109 156/86 10/19/16 18:00 104 10/19/16 17:38 95 80 10/19/16 16:33 102 132/67 10/19/16 16:00 102 10/19/16 16:00 99.0 102 20 132/67 (88) 91 10/19/16 16:00 55 (Thomas Le) Physical Examination GENERAL: Intubated and sedated with midazolam 7 mg/hr. He is also on a fentanyl drip for pain control at 150 mcg/hr. HEENT: Normocephalic. Left-sided craniotomy & right-sided bolt incisions well approximated with jean w/o any evident drainage, erythema or streaking. Flap soft. Pupils 2-3 mm nonreactive. Orally intubated. OGT. NECK: No JVD, trachea midline. CARDIOVASCULAR: S1S2 w/RRR w/grade II/ murmur, radial & pedal pulses 2+ bilaterally, necrosis noted to various fingertips and toes, dependent edema. Monitor is sinus rhythm w/o any ectopy noted. He is on milrinone at 0.75 mcg/kg/ min, diltiazem at 10 mL/hr, phenylephrine at 170 mcg/min and vasopressin at 6 mL /hr. RESPIRATORY: Diminished & coarse bilaterally, equal excursion, intubated & on PRVC A/C. GASTROINTESTINAL: Abdomen moderately distended, bowel sounds not appreciated, OGT GENITOURINARY: Maldonado catheter to BSD w/clear yellow urine. MUSCULOSKELETAL: No evident deformities or clubbing. Ischemic changes noted to some distal fingertips and toes. NEUROLOGICAL: Intubated & sedated on midazolam. GCS 3T. Pupils 2-3 mm nonreactive. No eye opening or motor response to verbal or local & central noxious stimulation. (Thomas Le) Lab, Micro, Other Results Recent Impressions Chest X-Ray 10/22/16 0000 Signed Impressions: Service Date/Time: Saturday, October 22, 2016 13:54 - CONCLUSION: No significant change. No evidence of pneumothorax. Paddy Pineda MD Chest X-Ray 10/21/16 06 Signed Impressions: Service Date/Time: Friday, October 21, 2016 03:47 - CONCLUSION: 1. Stable tubes and lines. 2. Stable bilateral lower lung zone airspace consolidation. 3. Stable small right pleural effusion and likely trace left pleural effusion. 4. No significant interval change. Kev Vergara MD Abdomen X-Ray 10/21/16 0600 Signed Impressions: Service Date/Time: Friday, October 21, 2016 03:50 - CONCLUSION: 1. NGT in the stomach. 2. General paucity of small bowel gas. This finding is nonspecific and occasionally may reflect fluid-filled loops of bowel. Otherwise, no dilated bowel loops to suggest significant ileus or obstruction. Kev Vergara MD Transcranial Doppler Study Complete 10/20/16 06 Signed Impressions: Service Date/Time: October 07:54 - CONCLUSION: Slight interval elevation of flow velocity measurements and ratio on the left Yosvany Polk MD Chest X-Ray 10/20/16 0000 Signed Impressions: Service Date/Time: October 03:47 - CONCLUSION: 1. Stable tubes and lines. 2. Stable bilateral lower lung zone airspace disease. 3. Stable small right pleural effusion. 4. No significant interval change. Kev Vergara MD Test 10/19/16 17:12 10/20/16 02:00 10/20/16 04:25 10/20/16 06:00 Random Glucose 240 MG/DL Sodium Level 145 MEQ/L 145 MEQ/L Blood Gas Puncture Site ART LINE Blood Gas Patient Temperature 98.6 Blood Gas HCO3 24 mmol/L Blood Gas Base Excess -1.5 mmol/L Blood Gas Oxygen Saturation 98 % Arterial Blood pH 7.32 Arterial Blood Partial Pressure CO2 47 mmHg Arterial Blood Partial Pressure O2 191 mmHg Arterial Blood Oxygen Content 12.3 Vol % Arterial Blood Carboxyhemoglobin 1.0 % Arterial Blood Methemoglobin 0.5 % Blood Gas Hemoglobin 8.6 G/DL Oxygen Delivery Device VENTILATOR Blood Gas Ventilator Setting 20/650/IT1.0/+12 Blood Gas Inspired Oxygen 90 % Test 10/20/16 10:40 10/20/16 13:00 10/21/16 00:10 10/21/16 03:30 White Blood Count 21.6 TH/MM3 Red Blood Count 2.11 MIL/MM3 Hemoglobin 7.0 GM/DL Hematocrit 20.9 % Mean Corpuscular Volume 99.0 FL Mean Corpuscular Hemoglobin 33.2 PG Mean Corpuscular Hemoglobin Concent 33.6 % Red Cell Distribution Width 13.3 % Platelet Count 200 TH/MM3 Mean Platelet Volume 9.1 FL Neutrophils (%) (Auto) 91.7 % Lymphocytes (%) (Auto) 2.0 % Monocytes (%) (Auto) 6.2 % Eosinophils (%) (Auto) 0.0 % Basophils (%) (Auto) 0.1 % Neutrophils # (Auto) 19.9 TH/MM3 Lymphocytes # (Auto) 0.4 TH/MM3 Monocytes # (Auto) 1.3 TH/MM3 Eosinophils # (Auto) 0.0 TH/MM3 Basophils # (Auto) 0.0 TH/MM3 CBC Comment DIFF FINAL Differential Comment Magnesium Level 2.3 MG/DL 2.2 MG/DL Phenytoin (Dilantin) Level 6.0 MCG/ML Sodium Level 147 MEQ/L 147 MEQ/L Blood Urea Nitrogen 19 MG/DL Creatinine 0.53 MG/DL Random Glucose 214 MG/DL Total Protein 5.9 GM/DL Albumin 1.5 GM/DL Calcium Level 7.6 MG/DL Phosphorus Level 0.9 MG/DL 1.3 MG/DL Alkaline Phosphatase 137 U/L Aspartate Amino Transf (AST/SGOT) 112 U/L Alanine Aminotransferase (ALT/SGPT) 195 U/L Total Bilirubin 0.4 MG/DL Direct Bilirubin 0.2 MG/DL Potassium Level 2.7 MEQ/L 3.4 MEQ/L Chloride Level 111 MEQ/L Carbon Dioxide Level 28.3 MEQ/L Anion Gap 7 MEQ/L Estimat Glomerular Filtration Rate 162 ML/MIN Indirect Bilirubin 0.2 MG/DL Vancomycin Level Trough 15.4 MCG/ML Blood Gas Puncture Site ART LINE Blood Gas Patient Temperature 98.6 Blood Gas HCO3 24 mmol/L Blood Gas Base Excess -0.7 mmol/L Blood Gas Oxygen Saturation 96 % Arterial Blood pH 7.34 Arterial Blood Partial Pressure CO2 46 mmHg Arterial Blood Partial Pressure O2 104 mmHg Arterial Blood Oxygen Content 9.4 Vol % Arterial Blood Carboxyhemoglobin 1.4 % Arterial Blood Methemoglobin 0.7 % Blood Gas Hemoglobin 6.8 G/DL Oxygen Delivery Device VENTILATOR Blood Gas Ventilator Setting 20/650/IT1.0/+12 Blood Gas Inspired Oxygen 65 % Test 10/21/16 04:20 10/21/16 14:30 10/21/16 17:30 10/22/16 04:15 White Blood Count 19.0 TH/MM3 Red Blood Count 2.48 MIL/MM3 Hemoglobin 7.9 GM/DL Hematocrit 23.9 % Mean Corpuscular Volume 96.4 FL Mean Corpuscular Hemoglobin 31.6 PG Mean Corpuscular Hemoglobin Concent 32.8 % Red Cell Distribution Width 15.0 % Platelet Count 187 TH/MM3 Mean Platelet Volume 8.5 FL Neutrophils (%) (Auto) 91.2 % Lymphocytes (%) (Auto) 1.8 % Monocytes (%) (Auto) 6.9 % Eosinophils (%) (Auto) 0.0 % Basophils (%) (Auto) 0.1 % Neutrophils # (Auto) 17.3 TH/MM3 Lymphocytes # (Auto) 0.4 TH/MM3 Monocytes # (Auto) 1.3 TH/MM3 Eosinophils # (Auto) 0.0 TH/MM3 Basophils # (Auto) 0.0 TH/MM3 CBC Comment DIFF FINAL Differential Comment Blood Urea Nitrogen 18 MG/DL Creatinine 0.58 MG/DL Random Glucose 295 MG/DL Total Protein 5.9 GM/DL Albumin 1.5 GM/DL Calcium Level 7.5 MG/DL Phosphorus Level 1.0 MG/DL 1.0 MG/DL Magnesium Level 2.2 MG/DL 2.2 MG/DL Alkaline Phosphatase 176 U/L Aspartate Amino Transf (AST/SGOT) 105 U/L Alanine Aminotransferase (ALT/SGPT) 180 U/L Total Bilirubin 0.4 MG/DL Sodium Level 147 MEQ/L 150 MEQ/L 155 MEQ/L Potassium Level 2.7 MEQ/L 2.9 MEQ/L 3.0 MEQ/L Chloride Level 112 MEQ/L Carbon Dioxide Level 27.6 MEQ/L Anion Gap 7 MEQ/L Estimat Glomerular Filtration Rate 146 ML/MIN Lactic Acid Level 1.4 mmol/L Ammonia 58 MCMOL/L Amylase Level 29 U/L Lipase 76 U/L Free Thyroxine 0.70 NG/DL Free Triiodothyronine (T3) pg/dL 0.90 PG/ML B-Type Natriuretic Peptide 2637 PG/ML Test 10/22/16 13:07 Vancomycin Level Trough 25.5 MCG/ML (Thomas Le) Medical Decision Making Impression and Plan Impression: 1. Subarachnoid hemorrhage, status post coiling posterior communicating artery aneurysm. s/p left decompressive craniectomy Vasospasms, s/p endovascular verapamil infusions 10/13/16, 10/17/16, 10/19/16 2. Possible seizures. Remains on Keppra and Cerebyx 3. Respiratory failure with worsening pneumonia Patient remains sedated, no response to stimulation, prognosis poor. Plan: Critical care management per [employer] Loss Prevention Investigator. Frequent neuro checks. Keep SBP between 160 and 180 mm Hg and treat vasospasms accordingly. PT/OT. Stress ulcer prophylaxis. Mechanical DVT prophylaxis. Continue anti-epileptics. (Thomas Le) Attending Statement The exam, history, and the medical decision-making described in the above note were completed with the assistance of the mid-level provider. I reviewed and agree with the findings presented. I attest that I had a [id number] encounter with the patient on the same day, and personally performed and documented my assessment and findings in the medical record. Remains intubated and sedated. Remains on vasopressin and Greyson-Synephrine. Ischemic changes noted in the distal left greater than right upper extremity. On Cardizem and milrinone. Left scalp flap soft. Pupils 2 mm nonreactive. No overall improvement in neurologic function. Continuing ventilator support. Continuing pressors as needed to maintain cerebral perfusion pressure. (Wilder Lopez MD) Thomas Le Oct 22, 2016 15:49 Wilder Lopez MD Oct 22, 2016 16:19
[2016-10-22 17:03] LABS: MAGNESIUM 2.1 MG/DL (1.5-2.5); POTASSIUM 3.4 MEQ/L (3.5-5.1)
[2016-10-22] MEDS: PHENYLEPHRINE INJ 160 MG in DEXTROSE 5% IN WATE 500 ML INJ 484 ML IV PRN ×2 (17:11)
[2016-10-22] MEDS: POTASSIUM PHOSPHATE INJ 30 MMOL in SODIUM CHLOR 0.9% 250 ML INJ 250 ML IV PRN (18:24)
[2016-10-22] MEDS: FAT EMULSION 20% INJ 250 ML (@10 mls/hr) IV-CENTRAL SCH (18:32)
[2016-10-23] VITALS (15 sets, daily range): BP systolic 138–158; BP diastolic 76–97; PULSE 68–86; RESP 20–23; TEMP 97.7–98.3; O2SAT 93–100
[2016-10-23] MEDS: INSULIN ASPART SUPPLEMENTAL SCALE SQ SCH ×6 (00:01→19:48)
[2016-10-23] MEDS: fentaNYL DRIP 250 ML IV PRN ×2 (00:25→16:25)
[2016-10-23] MEDS: MILRINONE INJ 20 MG in SODIUM CHLORIDE 0.9% INJ 80 ML IV SCH ×4 (01:11→18:34)
[2016-10-23] MEDS: RESP: ALBUTEROL 2.5 MG/IPRATROPIUM 0.5 MG NEB (SCH) INH ×2 (01:24→08:36)
[2016-10-23] MEDS: CLINIMIX E 4.25/25 2000 mL- >42 mls/hr IV-CENTRAL SCH ×6 (02:33→19:45)
[2016-10-23] MEDS: PHENYLEPHRINE INJ 160 MG in DEXTROSE 5% IN WATE 500 ML INJ 484 ML IV PRN ×4 (03:05→14:21)
[2016-10-23 04:15] LABS: BICARBONATE 32.3 MEQ/L (21.0-32.0); MAGNESIUM 2.2 MG/DL (1.5-2.5); POTASSIUM 3.9 MEQ/L (3.5-5.1)
[2016-10-23] MEDS: niMODipine 30 MG CAP PO SCH ×6 (04:18→19:46)
[2016-10-23] MEDS: HYDROCORTISONE SOD SUCCINATE 100 MG VIAL IV PUSH SCH ×3 (04:19→19:45)
[2016-10-23] MEDS: CHLORHEXIDINE GLUCONATE 2 % 1 PACK (2 CLOTHS) TOP SCH (04:20)
[2016-10-23] MEDS: MIDAZOLAM 100 MG/100 ML INJ 100 ML IV PRN ×2 (04:58→21:47)
[2016-10-23] MEDS: FOSPHENYTOIN SODIUM 100 MG PE/2 ML VIAL IV SCH ×3 (05:37→22:43)
[2016-10-23] MEDS: HEPARIN SODIUM - SQ 10,000 UNITS/ML VIAL SQ SCH ×3 (05:39→22:44)
[2016-10-23] MEDS: PIPERACIL-TAZO 4.5 GM PREMIX 100 ML IV SCH ×2 (05:39)
[2016-10-23] MEDS: levETIRAcetam INJ 500 MG in SODIUM CHLORIDE 0.9% INJ 100 ML IV SCH ×2 (05:39→17:29)
[2016-10-23] MEDS: POTASSIUM PHOSPHATE INJ 30 MMOL in SODIUM CHLOR 0.9% 250 ML INJ 250 ML IV PRN ×2 (07:10→17:29)
[2016-10-23] MEDS: CHLORHEXIDINE 0.12% (ORAL KIT) 15 ML CUP MT SCH ×2 (08:00→19:45)
[2016-10-23] MEDS: LANSOPRAZOLE SOLUTAB 30 MG TAB NG SCH (08:31)
[2016-10-23] MEDS: SODIUM CHLORIDE 1 GRAM TAB PO SCH ×3 (08:31→17:46)
[2016-10-23] MEDS: LACTULOSE SYRUP 20 GM/30 ML CUP OG-TUBE SCH ×2 (09:00→21:00)
[2016-10-23] MEDS: DOCUSATE SODIUM 100 MG/10 ML UDC PO SCH ×2 (09:00→21:00)
[2016-10-23] MEDS: ARTIFICIAL TEARS OPTH SOLN 15 ML BTL EACH EYE SCH ×3 (09:00→17:46)
[2016-10-23] MEDS: SODIUM CHLORIDE 0.9% FLUSH 10 ML FLUSH IV FLUSH SCH ×2 (09:00→19:48)
[2016-10-23] MEDS: POLYETHYLENE GLYCOL 17 GM PKG OG-TUBE SCH ×2 (09:00→21:00)
[2016-10-23] MEDS: SENNOSIDES SYRUP 8.8 MG/5 ML CUP PO SCH ×2 (09:00→21:00)
[2016-10-23] MEDS ORDERED: VANCOMYCIN 1,500 MG/NS 500 ML IV SCH ×2 (09:00)
[2016-10-23] MEDS: FUROSEMIDE INJ 100 MG in SODIUM CHLORIDE 0.9% INJ 90 ML IV SCH (09:01)
[2016-10-23] MEDS: DILTIAZEM INJ 125 MG in SODIUM CHLORIDE 0.9% INJ 100 ML IV PRN ×2 (09:22→22:20)
--- NOTE | 2016-10-23 09:52 | HHI.CCPN ---
Subjective Remarks/Hospital Course 10/07: 56-year-old male presents with intracranial bleed. Patient was transferred from [facility] at [facility]. As per the paramedics and the nurse who assisted the patient said that patient earlier this morning was coming down the stairs when he started feeling some left-sided weakness and numbness. He called 911 and by the time EMS arrived they detected some deficit and called a stroke alert. Patient was taken to [facility]. When patient arrived his mental status started to decline and he was intubated emergently in the ER. A CAT scan of the head showed subarachnoid and subdural bleed. He was taking emergently to an angio suite for coiling of the aneurysm and later on to OR for subdural hematoma evacuation. 10/08: Remains sedated, orally intubated on mechanical ventilation. Arouses off sedation and following commands with both upper extremities earlier. Ventriculostomy in place. ICP 7, CPP mid 80s. 10/09: Remains sedated, orally intubated on mechanical ventilation. Arouses off sedation and follows commands with both upper extremities. Ventriculostomy in place. 10/10: Remains sedated, orally intubated on mechanical ventilation. Arouses off sedation and follows commands and both upper extremities. Ventriculostomy in place. ICP 5. Failed C Pap trial yesterday. 10/11: Extubated on 10/10, tolerating well. Awake and alert. Appears confused, moving all 4 extremities. Ventriculostomy discontinued today by neurosurgery 10/13: Patient has developed severe vasospasm at the left MCA territory on TCD's that was treated with IV route verapamil 10/14: patient extubated overnight. was originally following commands and neuro intact. TCDs this morning with increase LIs over yesterday, particularly Left MCA territory. On my evaluation early this morning, patient was aphasic, not moving the right side of his body, not following commands. SBP 140s at that time. net 2L negative/24h and uop almost 1L/hr at the time. I immediately bolused with 2L NS iv, placed arterial and central lines, started phenylephrine , increased SBP to goal 200 - 220 mmHg. called interventional neuroradiology and accompanied patient down personally to IR for IA verapamil again. I remained with the patient managing his hemodynamics down in IR and providing anxiolysis IV. I accompanied patient back up to [facility] where patient again was neuro intact and following commands. Sodium downtrending to 135 and urine studies and serum osms suggestive of urine sodium losses and high uop. added Florinef to mitigate sodium losses, and increased mivf to 500cc/hr to maintain euvolemia. later in the day patient decompensated requiring intubation for hyoxemia, cxr suggestive of pulmonary edema. 2d echo with evidence of EF 40%, septal hypokinesis, moderate MR. On levo, vaso, phenylephrine. difficult to get to goal SBP 200 mmHg, likely due to myocardial dysfunction. decreased goal to 180 - 200 mmHg to balance cardiac vs. neurologic goals. 10/15 Patient was discussed with Dr. Sullivan at shift change. Isuprel was initiated in effort to improve cardiac output as dobutamine not available and concerned with use of milrinone given long half life. Systolic blood pressure was relatively stable with perhaps some modest improvement from 170s to 180s for several hours after initiation. Notified when patient became abruptly hypotensive despite vasopressin, levophed 20 mcg/min, Greyson-Synephrine 300 mcg/m. He was also hypoxemic with sats in 80s despite PCV with PEEP 8 and FiO2 100%, respiratory rate in the 30s. He had decreased breath sounds bilaterally and was concerned for air trapping so removed from mechanical ventilation and bagged without improvement. Placed patient back on mechanical ventilation and provide recruitment maneuvers and increased PEEP to 12 which resulted in improvement of sats to 88% to 92%. Ordered Flolan. Discontinued isuprel and initiated epinephrine. R radial art line would not draw blood . Performed u/s guided femoral artery stick to confirm hypoxemia on ABG given poor wave form on pulse ox and PaO2 was 58. Placed new L radial art line and this resulted in ~ 30 point increase in SBP relative to prior line but patient ultimately on vasopressin, levophed 30 micrograms per minute, Greyson-Synephrine 300 micrograms per minute, epinephrine 12 mcg/min and unable to maintain target pressure (SBP in 150s). Given calcium chloride. patient with shaking movements all extremities, pupils 2mm and sluggish, no eye deviation. Rigors seemed most likely but unable to emergently rule out seizures so loaded with fosphenytoin to avoid secondary injury from seizure activity. WBC increasing and concern for HCAP so pancultured and placed on cefepime, vancomycin, azithromycin. Hydrocortisone 100 mg IV every 8 hours initiated due to concern for septic shock in a patient who has been refractory to all other above measures. Patient is to hemodynamically unstable and hypoxic for transport for neurologic imaging. Urine output has declined to 180-200 ML's per hour. Back off maintenance IV fluids to 200 ML's per hour. Bedside echo demonstrates decreased LV function with normal RV contractility and collapsible IVC suggesting ongoing maintenance fluid administration is appropriate. 10/15 additional visit: continued to deteriorate throughout the day. Seen multiple times. hypoxic on 100% fio2, flolan. required nimbex drip to maintain. repeat bedside critical care ultrasound still demonstrates severe LV dysfunction , decompressed RV, IVC more dilated than previous echo overnight, however still with respiratory variation. femoral arterial line placed with better waveform and higher pressure (likely SVR too high to allow accurate measurement of radial pressure). Pulse contour analysis without stroke volume variation, CI 3.6. SV 52mL. trialed additional albumin without improvement in hemodynamics. uop slower than before, but still significant salt wasting in the urine- sodium dropped to 125 from 132 despite already on 3% nacl infusion and aggressive sodium replacements. forced to give 23% nacl and salt tabs. declining clinically despite maximal therapy. 10/16: continues to be maximally critically ill. LV dysfunction persists. starting to get volume overloaded, but given concern for ongoing cerebral vasospasm, unable to actively diurese patient. sodium wasting persists, but uop downtrending slightly. very hypokalemic today, likely due to steroids. remains intubated, sedated, paralyzed, on flolan. CXR today appears worse with worsening airspace disease. Lactate remains slightly elevated, confirming persistent shock. 10/17: Lung infiltrates dense bilaterally, reflected in shunting and problems with oxygenation. Developed vasospasm on TCDs and required angiogram and intra- arterial verapamil again today. 10/18: SBP 160 - 170 range. FiO2 0.55. BNP > 5000. Not tolerating attempts at maintaining higher BP due to worsening heart failure. Several episodes of vasospasm. Watch daily TCDs closely. Sputum no growth. 10/19: Tmax 99.8. Currently 99. Remains on 4 vasopressors and epoprostenol Subjective 10/20: Yesterday. Returned IR for intra-arterial calcium channel joes infusion for vasospasm. Transcranial Dopplers today Still pending. Remains on significant vasopressor support. 10/21: Good response to diuresis, check BNP. TCDs pending. Heart failure remains a major problem. 10/22: CVP 21 - 22, finger tips blue, digits pale white despite high dose milrinone dilation. Greyson and vaso much reduced. Will try diltiazem gtt for digital ischemia. Urine remains > 200/hr and proximal limbs are well perfused. This digital ischemia appears to be a local phenomenon ala Raynaud's. New subcutaneous emphysema right anterior chest wall. 10/23: Old CVL removed. Fingertips remain marginal, some necrotic despite diltiazem and milrinone treatment for digital ischemia. Cardiac output > 7 liters/min and urine copious, confirming good perfusion pressure and flow. This continues to be a local phenomenon of the digits ala Raynaud's. We are trying to wean vasopressors off but are required to maintaining a cerebral perfusion pressure suitable for the treatment of aneurysmal subarachnoid bleed. Frankly, the importance of brain function eclipses fingertips. Objective Vital Signs Date Time Temp Pulse Resp B/P (MAP) Pulse Ox O2 Delivery O2 Flow Rate FiO2 10/23/16 09:22 79 144/79 10/23/16 08:36 95 60 10/23/16 08:00 97.8 21 Intake and Output 10/23/16 10/23/16 10/24/16 08:00 16:00 00:00 Intake Total 3253 ml Output Total 1900 ml Balance 1353 ml Result Diagram: 10/21/16 0420 10/23/16 0220 Imaging Last Impressions Chest X-Ray 10/20/16 0000 Signed Impressions: Service Date/Time: October 03:47 - CONCLUSION: 1. Stable tubes and lines. 2. Stable bilateral lower lung zone airspace disease. 3. Stable small right pleural effusion. 4. No significant interval change. Kev Vergara MD Transcranial Doppler Study Complete 10/19/16 0600 Signed Impressions: Service Date/Time: Wednesday, October 19, 2016 08:02 - CONCLUSION: Suspect developing right MCA vasospasm Yosvany Polk MD Liver Ultrasound 10/19/16 0000 Signed Impressions: Service Date/Time: Wednesday, October 19, 2016 11:20 - CONCLUSION: 1. Sludge filled gallbladder with thickened wall. 2. Moderate size bilateral pleural effusions and mild upper abdominal ascites. Santos Vazquez MD Head CT 10/17/16 0000 Signed Impressions: Service Date/Time: Monday, October 17, 2016 15:06 - CONCLUSION: Ventricles are slightly larger without ventriculostomy. Edema in the left hemisphere the brain herniating through the operative site. Remington Woodward MD FACR Cerebral Arteriogram 10/17/16 0000 Signed Impressions: Service Date/Time: Monday, October 17, 2016 00:00 - CONCLUSION: 1. Uncompensated spasmolysis of the left middle cerebral artery Harvey Morejon MD Infusion Non-thrombolysis 10/14/16 1103 Signed Impressions: Service Date/Time: Friday, October 14, 2016 10:21 - CONCLUSION: 1. Uncomplicated infusion for spasmolysis Harvey Morejon MD Neck CTA 10/07/16 0000 Signed Impressions: Service Date/Time: Friday, October 07, 2016 15:03 - CONCLUSION: 1. Mild carotid bulb atherosclerotic calcification bilaterally. However, no significant stenosis is present in either internal carotid artery. 2. Paranasal sinus mucoperiosteal thickening. 3. Please refer to brain CTA report for description of the intracranial findings. Yosvany Ramirez MD Head CTA 10/07/16 0000 Signed Impressions: Service Date/Time: Friday, October 07, 2016 15:03 - CONCLUSION: 1. 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 2. Large left subdural hematoma measuring 1.3 cm in depth with a significant, 1.6 cm left to right subfalcine shift. Joni Shelton MD Objective Remarks GENERAL: 56-year-old male, currently sedated and paralyzed and orotracheally intubated/critically ill HEAD: Status post left craniectomy. Incision is clean dry and intact without EYES: About 4 mm bilaterally and questionably reactive NECK: Supple, trachea midline. orotracheal tube in place. CARDIOVASCULAR: Tachycardic, RR. S1, S2. No S4. 2/6 murmur left lower sternal border RESPIRATORY: Coarse rhonchi bilaterally anterior-posterior. Diminished breath sounds bilateral lower lobes. GASTROINTESTINAL: Abdomen soft, non-tender, nondistended. Hypoactive bowel sounds are appreciated MUSCULOSKELETAL: Ischemic changes to several finger tips both hands with early necrosis, pale white proximal digits. Arms and legs warm, well-perfused. NEURO EXAM: RASS -5. Procedures 10/13 Four-vessel cerebral angiography with verapamil treatment of vasospasm Date of Insertion: Oct 14, 2016 Line: Central Venous Catheter Side: Right Location: Subclavian A/P Assessment and Plan Neuro/Psych Status post left frontotemporal parietal craniectomy 10/08 for evacuation subdural hematoma/duraplasty Left subdural hematoma - 1.3 cm with 1.6 shift left to right Subarachnoid hemorrhage contents 5, Carroll grade 4 - left P-comm status post 4 coiling 10/08 - TCD's daily: 10/19 - vasospasm -intra-arterial verapamil - Nimodipine 60 mg every 4 hours for vasospasm to complete 21 days. Initiated - Levetiracetam 500 mg IV twice a day for seizure prophylaxis - 10/13 and 10/14 and 10/17) 10/19 left MCA territory vasospasm, status post successful verapamil treatment by IR with 20 mg verapamil - SBP goal 180 - 220 mmHg, although only able to press to 160 on maximal therapy given cardiac dysfunction. - check phenytoin level -> 7. - 10/17 CT brain - less hemisphere edema with herniation through left craniotomy site and CT brain for today - Dr. Perry/neurosurgery - Currently on midazolam 4 mg an hour and fentanyl drip at 150 an hour - 10/21 stopped cisatracurium drip at 4 g per kilo per minute titrate to maintain [id number] 2 out of 4 Respiratory: Acute hypoxic Respiratory failure-ARDS Noncardiogenic/neurogenic pulmonary edema - pulmonary edema, may be non-cardiogenic/neurogenic from SAH/vasospasm. cannot diurese due to active cerebral vasospasm. [facility] - Ventilator bundle - Albuterol/age-appropriate versus every 6 hours with albuterol aerosols every 2 hours. Dyspnea - Epoprostenol 50 ng/kg/min aerosolized continue - Currently not appropriate for prone therapy due to subarachnoid hemorrhage/ cardiac dysfunction - Follow-up ABG/chest x-ray in a.m. - Reduce PEEP to 10 Cardiovascular: Severe shock - septic and cardiogenic Severe LV dysfunction secondary to SAH Elevated troponin- secondary to SAH, unlikely to be ACS. Pulmonary hypertension -Currently on phenylephrine at 300 g per minute /norepinephrine 18 micrograms a minute, vasopressin 0.04 units a minute, epinephrine at 20 micrograms a minute to maintain to start blood pressure greater than 150 Continue stress dose hydrocortisone 100 mg IV every 8 hours - On milrinone 0.5 mics per kilogram per minute - goal euvolemia. +3 L. Will give low-dose diuretic today Currently off maintenance IV fluids Maximize concentration of all vasopressors - troponin elevation peak 4.71 likely secondary to his cardiac dysfunction secondary to SAH. unlikely to be ACS, and at this point unable to evaluate or intervene on coronary ischemia given how critically ill he is. Echocardiogram 10/14/16 revealed EF 40-45%. Septal hypokinesis. Moderate MR. Severe pulmonary hypertension with pulmonary artery pressures estimated 61 mmHg Cardiac index 3.8. SVV 10. Renal: Cerebral Salt Wasting/SIADH - q1h uop -- Strict I/Os - BNP > 5000 on 10/18 See below. Creatinine currently within normal limits FEN/GI: Severe hyponatremia Hypokalemia Elevated transaminases Hyperammonia -Currently on sodium chloride 3gm po TID - 3% NaCl 30cc/hr. - serial sodiums every 6 hours - ICU electrolyte protocol - aggressively replace potassium losses. - NPO while in shock. Will start TPN today - Lansoprazole 30 mg by tube daily for GI prophylaxis -Docusate sodium 100 mg twice a day, senna liquid 8.6 mg twice a day and polyethylene glycol 3350 17 g twice a day for bowel regimen Start lactulose 30 cc twice a day. Check ammonia level in a.m. Check liver ultrasound. Recheck LFTs in a.m. Likely secondary to hypoperfusion /shock Heme/ID: Septic Shock Possible HCAP -10/18 d/c empiric abx: vancomycin, cefepime, azithromycin. Will antonio culture again today and restart antibiotics with vancomycin, piperacillin/tazobactam on 10/19 Digital Ischemia with necrosis - Local phenomenon. CO always hyperdynamic range, urine copious. - Diltiazem and milrinone infusions continuous for 3 days. Pertinent cultures 10/15 - blood cultures - 1 out of 4 anaerobic gram-negative cocci possibly Veillonella 10/15 - sputum - beta strep not A, strep species 10/19 - urine - pending 10/19 - sputum - pending We'll recheck blood cultures 2 today Endocrine: Presumed Adrenal Insufficiency -Discontinued fludrocortisone 10/18. Monitor sodium 6 hours. - Current hydrocortisone 100 mg every 8 hours. Sliding-scale insulin with Novulog -Accu-Cheks every 4 hours to maintain euglycemia Hagerman protocol. Prophylaxis: GI Prophylaxis - lansoprazole DVT Prophylaxis-- SCDs, heparin subcutaneous Lines: - 10/14 right SC TLC, removed 10/22 - 10/14 right radial art line, removed 10/14 - 10/15 left radial art line, removed 10/16 - 10/15 left femoral art line - 10/22 left groin triple lumen placed - Maldonado Overall impression: Remains critically ill with unstable vasospasm following spontaneous subarachnoid hemorrhage. Digital ischemia has not improved after reducing vasopressors on and . Milrinone improved CO but ischemia persists. BNP 2637 consistent with acute on chronic heart failure. No dobutamine available but will increase milrinone to 0.75. Urine output confirms good renal perfusion, CVP confirms good preload. He will lose fingers due to heart failure and local digital vasospasm. Staph on blood - ? possible embolic debris, but most likely a contaminant in light of organism. Change out lines completed. Critical care 44 mins aside from procedures. Rodriguez Collazo MD Oct 23, 2016 09:52
--- NOTE | 2016-10-23 11:45 | HHI.NSPN ---
(Thomas Le) History Chief Complaint: Unable to obtain due to patient's clinical condition. (Thomas Le) Interval History This is a 56-year-old male brought to the emergency room as an emergency transfer from another institution with history of intracranial bleed. He was transferred from [facility] and [facility]. Apparently the patient said that patient earlier this morning was coming down the stairs when he started feeling some left-sided weakness and numbness. He called 911 and by the time EMS arrived they detected severe neurological deficits and called a stroke alert. No seizure activity reported. No tongue biting. No incontinence of stool or urine. Patient was taken to [facility]. Apparently he was not able to move his right side . When patient arrived his mental status started to decline and he was intubated emergently in the ER for airway protection. A CT scan of the head showed extensive subarachnoid bleed. In addition he had a sizable subdural hematoma. He was brought emergently on the ventilator. He was on a propofol drip and well sedated. GCS was 3. He was on a Cardene drip and blood pressure was in the 120s. Neurosurgical consultation was requested 10/08. POD #1 Open eyes and follows commands 10/12. Doing very well. Neurologically stable. Patient is in restraints secondary to pulling out his Maldonado multiple times. 10/13. Much more lethargic, difficult to speak with new aphasia 10/14. Improved after angiography. Today he developed new onset of aphasia and right hemiparesis 10/17. Intubated and sedated. Lung infiltrates dense bilaterally, reflected in shunting and problems with oxygenation. 10/18: underwent endovascular verapamil infusion to left MCA vasospasm yesterday. TCD today pending. left flap pak today. Intubated and sedated. continues to be on multiple pressors. on 3% NS. 10/19: currently unstable for travel for repeat CT Head this am. no changes with neuro checks, remains intubated, sedated. pupils equal. continues on multiple pressors support 10/20: intubated and mildly sedated. remains on multiple pressors. pneumonia worsening. TCD this am reports slight increase in flow velocity to left, he underwent cerebral angiography yesterday with endovascular verapamil infusion right ICA. 10/21: intubated, sedated on fentanyl and versed. On Nimbex. 10/22: The patient remains intubated and sedated with midazolam. He is on a fentanyl drip as well. He is on multiple cardiac drips. The cisatracurium drip was discontinued yesterday. 10/23: This morning the patient remains intubated with midazolam for sedation. He remains on several cardiac drips. A furosemide drip has been started as well. (Thomas Le) System Review Comments Unable to obtain due to patient's clinical condition. (Thomas Le) Exam Results 10/21/16 10/21/16 10/22/16 10/22/16 10/23/16 10/23/16 05:59 17:59 05:59 17:59 05:59 17:59 Intake Total 4821 ml 4867 ml 3072.2 ml 2917 ml 3705 ml 3253 ml Output Total 2745 ml 2975 ml 2890 ml 275 ml 5925 ml 275 ml Balance 2076 ml 1892 ml 182.2 ml 2642 ml -2220 ml 2978 ml IV Total 3791 ml 3884 ml 2985.2 ml 2917 ml 2742 ml 3253 ml TPN/PPN 449 ml 863 ml 77 ml 849 ml Lipid 61 ml 120 ml 10 ml 114 ml Packed Cells 400 ml Tube Irrigant 120 ml Output Urine Total 2745 ml 2975 ml 2890 ml 275 ml 5425 ml 175 ml Stool Total 500 ml 100 ml Gastric Drainage Total 0 ml Vital Signs Date Time Temp Pulse Resp B/P (MAP) Pulse Ox O2 Delivery O2 Flow Rate FiO2 10/23/16 09:22 79 144/79 10/23/16 08:36 95 60 10/23/16 08:00 97.8 74 21 148/81 (103) 99 10/23/16 08:00 60 10/23/16 08:00 74 10/23/16 06:50 68 151/79 10/23/16 06:00 78 10/23/16 04:41 94 60 10/23/16 04:00 97.8 68 20 146/78 (100) 93 10/23/16 04:00 68 10/23/16 04:00 60 10/23/16 03:05 73 147/78 10/23/16 02:00 70 10/23/16 01:20 98 60 10/23/16 01:11 76 132/71 10/23/16 00:00 60 10/23/16 00:00 76 10/23/16 00:00 97.7 76 20 138/76 (96) 97 10/22/16 22:00 74 10/22/16 20:33 95 60 10/22/16 20:06 77 142/79 10/22/16 20:04 75 140/78 10/22/16 20:04 75 142/77 10/22/16 20:00 97.8 78 20 142/78 (99) 97 10/22/16 20:00 77 10/22/16 20:00 60 10/22/16 17:11 80 141/77 10/22/16 16:32 95 60 10/22/16 16:00 82 10/22/16 16:00 97.7 82 24 144/80 (101) 94 10/22/16 15:06 79 143/79 10/22/16 12:33 85 138/75 10/22/16 12:09 82 137/79 10/22/16 12:00 97.9 85 20 141/81 (101) 97 10/22/16 12:00 85 10/22/16 11:27 84 152/88 10/22/16 10:32 67 168/96 10/22/16 10:20 82 168/96 10/22/16 09:29 99 60 10/22/16 09:23 82 171/98 10/22/16 08:00 60 10/22/16 08:00 80 10/22/16 08:00 98.7 82 20 166/93 (117) 100 10/22/16 06:52 79 161/90 10/22/16 06:00 82 10/22/16 04:20 98 60 10/22/16 04:00 97.7 87 20 166/94 (118) 98 10/22/16 04:00 60 10/22/16 04:00 87 10/22/16 02:00 90 10/22/16 00:54 86 156/87 10/22/16 00:28 100 60 10/22/16 00:00 97.8 87 20 161/92 (115) 87 10/22/16 00:00 60 10/22/16 00:00 87 10/21/16 22:59 87 155/84 10/21/16 22:50 98 60 10/21/16 22:00 92 10/21/16 21:39 100 60 10/21/16 20:00 60 10/21/16 20:00 97.8 94 20 157/89 (111) 96 10/21/16 20:00 93 10/21/16 18:09 60 10/21/16 18:00 91 10/21/16 16:57 94 155/87 10/21/16 16:32 88 158/88 10/21/16 16:31 93 156/86 10/21/16 16:10 100 80 10/21/16 16:00 80 10/21/16 16:00 97.9 94 20 158/90 (112) 100 10/21/16 16:00 94 10/21/16 14:00 97 10/21/16 12:07 95 60 10/21/16 12:00 98.6 99 20 158/90 (112) 97 10/21/16 12:00 99 10/21/16 12:00 60 10/21/16 10:00 103 10/21/16 09:28 102 162/92 10/21/16 08:00 60 10/21/16 08:00 98.5 103 20 166/96 (119) 100 10/21/16 08:00 103 10/21/16 07:57 99 60 10/21/16 06:00 110 10/21/16 04:12 95 65 10/21/16 04:00 99.0 112 20 168/94 (118) 92 10/21/16 04:00 112 10/21/16 04:00 65 10/21/16 02:00 110 10/21/16 01:20 93 65 10/21/16 00:00 99.2 108 20 160/88 (112) 93 10/21/16 00:00 65 10/21/16 00:00 108 10/20/16 23:21 107 155/85 10/20/16 23:21 107 157/86 10/20/16 22:23 95 65 10/20/16 22:00 65 10/20/16 22:00 104 10/20/16 21:54 106 149/82 10/20/16 20:00 70 10/20/16 20:00 99.0 104 20 144/84 (104) 99 10/20/16 20:00 104 10/20/16 19:25 99 70 10/20/16 18:00 108 10/20/16 16:00 99.2 111 20 156/84 (108) 100 10/20/16 16:00 80 10/20/16 16:00 111 10/20/16 15:50 89 65 10/20/16 15:18 115 166/94 10/20/16 15:14 115 170/85 10/20/16 14:00 114 10/20/16 12:00 98.9 116 20 159/86 (110) 96 10/20/16 12:00 80 10/20/16 12:00 114 (Thomas Le) Physical Examination GENERAL: Intubated and sedated with midazolam 7 mg/hr. He is also on a fentanyl drip for pain control at 150 mcg/hr. HEENT: Normocephalic. Left-sided craniotomy & right-sided bolt incisions well approximated with jean w/o any evident drainage, erythema or streaking. Flap soft. Pupils 2-3 mm nonreactive. Orally intubated. Right nare NGT. NECK: No JVD, trachea midline. CARDIOVASCULAR: S1S2 w/RRR w/grade II/ murmur, radial & pedal pulses 2+ bilaterally, necrosis noted to various fingertips and toes, dependent edema. Monitor is sinus rhythm w/o any ectopy noted. He is on milrinone at 0.75 mcg/kg/ min, diltiazem at 10 mL/hr, phenylephrine at 220 mcg/min and vasopressin at 6 mL /hr. A furosemide drip is infusing at 5 mL/hr. RESPIRATORY: Diminished & coarse bilaterally, equal excursion, intubated & on PRVC A/C. GASTROINTESTINAL: Abdomen moderately distended, bowel sounds not appreciated, NGT clamped. GENITOURINARY: Maldonado catheter to BSD w/clear yellow urine. MUSCULOSKELETAL: No evident deformities or clubbing. Ischemic changes noted to most distal fingertips and toes. NEUROLOGICAL: Intubated & sedated on midazolam. GCS 3T. Pupils 2-3 mm nonreactive. No eye opening or motor response to verbal or local & central noxious stimulation. (Thomas Le) Lab, Micro, Other Results Recent Impressions Chest X-Ray 10/22/16 0000 Signed Impressions: Service Date/Time: Saturday, October 22, 2016 13:54 - CONCLUSION: No significant change. No evidence of pneumothorax. Paddy Pineda MD Chest X-Ray 10/21/16 0600 Signed Impressions: Service Date/Time: Friday, October 21, 2016 03:47 - CONCLUSION: 1. Stable tubes and lines. 2. Stable bilateral lower lung zone airspace consolidation. 3. Stable small right pleural effusion and likely trace left pleural effusion. 4. No significant interval change. Kev Vergara MD Abdomen X-Ray 10/21/16 0600 Signed Impressions: Service Date/Time: Friday, October 21, 2016 03:50 - CONCLUSION: 1. NGT in the stomach. 2. General paucity of small bowel gas. This finding is nonspecific and occasionally may reflect fluid-filled loops of bowel. Otherwise, no dilated bowel loops to suggest significant ileus or obstruction. Kev Vergara MD Laboratory Tests Test 10/20/16 13:00 10/21/16 00:10 10/21/16 03:30 10/21/16 04:20 Sodium Level 147 MEQ/L 147 MEQ/L 147 MEQ/L Blood Urea Nitrogen 19 MG/DL 18 MG/DL Creatinine 0.53 MG/DL 0.58 MG/DL Random Glucose 214 MG/DL 295 MG/DL Total Protein 5.9 GM/DL 5.9 GM/DL Albumin 1.5 GM/DL 1.5 GM/DL Calcium Level 7.6 MG/DL 7.5 MG/DL Phosphorus Level 0.9 MG/DL 1.3 MG/DL 1.0 MG/DL Magnesium Level 2.2 MG/DL 2.2 MG/DL Alkaline Phosphatase 137 U/L 176 U/L Aspartate Amino Transf (AST/SGOT) 112 U/L 105 U/L Alanine Aminotransferase (ALT/SGPT) 195 U/L 180 U/L Total Bilirubin 0.4 MG/DL 0.4 MG/DL Direct Bilirubin 0.2 MG/DL Potassium Level 2.7 MEQ/L 3.4 MEQ/L 2.7 MEQ/L Chloride Level 111 MEQ/L 112 MEQ/L Carbon Dioxide Level 28.3 MEQ/L 27.6 MEQ/L Anion Gap 7 MEQ/L 7 MEQ/L Estimat Glomerular Filtration Rate 162 ML/MIN 146 ML/MIN Indirect Bilirubin 0.2 MG/DL Vancomycin Level Trough 15.4 MCG/ML Blood Gas Puncture Site ART LINE Blood Gas Patient Temperature 98.6 Blood Gas HCO3 24 mmol/L Blood Gas Base Excess -0.7 mmol/L Blood Gas Oxygen Saturation 96 % Arterial Blood pH 7.34 Arterial Blood Partial Pressure CO2 46 mmHg Arterial Blood Partial Pressure O2 104 mmHg Arterial Blood Oxygen Content 9.4 Vol % Arterial Blood Carboxyhemoglobin 1.4 % Arterial Blood Methemoglobin 0.7 % Blood Gas Hemoglobin 6.8 G/DL Oxygen Delivery Device VENTILATOR Blood Gas Ventilator Setting 20/650/IT1.0/+12 Blood Gas Inspired Oxygen 65 % White Blood Count 19.0 TH/MM3 Red Blood Count 2.48 MIL/MM3 Hemoglobin 7.9 GM/DL Hematocrit 23.9 % Mean Corpuscular Volume 96.4 FL Mean Corpuscular Hemoglobin 31.6 PG Mean Corpuscular Hemoglobin Concent 32.8 % Red Cell Distribution Width 15.0 % Platelet Count 187 TH/MM3 Mean Platelet Volume 8.5 FL Neutrophils (%) (Auto) 91.2 % Lymphocytes (%) (Auto) 1.8 % Monocytes (%) (Auto) 6.9 % Eosinophils (%) (Auto) 0.0 % Basophils (%) (Auto) 0.1 % Neutrophils # (Auto) 17.3 TH/MM3 Lymphocytes # (Auto) 0.4 TH/MM3 Monocytes # (Auto) 1.3 TH/MM3 Eosinophils # (Auto) 0.0 TH/MM3 Basophils # (Auto) 0.0 TH/MM3 CBC Comment DIFF FINAL Differential Comment Lactic Acid Level 1.4 mmol/L Ammonia 58 MCMOL/L Test 10/21/16 14:30 10/21/16 17:30 10/22/16 04:15 10/22/16 13:07 Sodium Level 150 MEQ/L 155 MEQ/L Amylase Level 29 U/L Lipase 76 U/L Free Thyroxine 0.70 NG/DL Free Triiodothyronine (T3) pg/dL 0.90 PG/ML Potassium Level 2.9 MEQ/L 3.0 MEQ/L Phosphorus Level 1.0 MG/DL Magnesium Level 2.2 MG/DL B-Type Natriuretic Peptide 2637 PG/ML Vancomycin Level Trough 25.5 MCG/ML Test 10/22/16 16:20 10/23/16 02:20 Blood Urea Nitrogen 19 MG/DL 20 MG/DL Creatinine 0.45 MG/DL 0.52 MG/DL Random Glucose 283 MG/DL 251 MG/DL Calcium Level 7.6 MG/DL 8.1 MG/DL Phosphorus Level 1.4 MG/DL 2.0 MG/DL Magnesium Level 2.1 MG/DL 2.2 MG/DL Sodium Level 153 MEQ/L 154 MEQ/L Potassium Level 3.4 MEQ/L 3.9 MEQ/L Chloride Level 116 MEQ/L 117 MEQ/L Carbon Dioxide Level 31.0 MEQ/L 32.3 MEQ/L Anion Gap 6 MEQ/L 5 MEQ/L Estimat Glomerular Filtration Rate 196 ML/MIN 166 ML/MIN Random Vancomycin Level 15.8 COMMENT (Thomas Le) Medical Decision Making Impression and Plan Impression: 1. Subarachnoid hemorrhage, status post coiling posterior communicating artery aneurysm. s/p left decompressive craniectomy Vasospasms, s/p endovascular verapamil infusions 10/13/16, 10/17/16, 10/19/16 2. Possible seizures. Remains on Keppra and Cerebyx 3. Respiratory failure with worsening pneumonia Patient remains sedated, no response to stimulation, prognosis poor. Plan: Critical care management per [employer]. Frequent neuro checks. Keep SBP between 160 and 180 mm Hg and treat vasospasms accordingly. PT/OT. Stress ulcer prophylaxis. Mechanical DVT prophylaxis. Continue anti-epileptics. (Thomas Le) Attending Statement I have personally seen and examined the patient on 10/23/16. Pertinent documentation and study results have been reviewed by the undersigned. I have personally developed the treatment plan and performed medical decision making. Agree with findings, exam, and treatment plan as noted above. On my examination today, the patient remains sedated, unresponsive. Remains intubated. Remains on vasopressin and Greyson-Synephrine with milrinone and diltiazem to improve peripheral perfusion. On fludrocortisone for probable adrenal insufficiency. 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 Persistent problems with pulmonary hypertension. Scalp flap remains soft and pulsatile. Remains with severe neurologic deficit and multisystem dysfunction with overall poor prognosis. (Wilder Lopez MD) Thomas Le Oct 23, 2016 11:45 Wilder Lopez MD Oct 23, 2016 20:56
[2016-10-23 16:36] LABS: BICARBONATE 34.1 MEQ/L (21.0-32.0); MAGNESIUM 2.2 MG/DL (1.5-2.5); POTASSIUM 3.6 MEQ/L (3.5-5.1)
[2016-10-23] MEDS: VASOPRESSIN INJ 40 UNITS in DEXTROSE 5% IN WATER 100ML INJ 98 ML IV SCH ×2 (17:35)
[2016-10-23] MEDS: POTASSIUM CHLOR 40 MEQ PREMIX 100 ML IV SCH ×2 (18:34→19:46)
[2016-10-23] MEDS: FAT EMULSION 20% INJ 250 ML (@10 mls/hr) IV-CENTRAL SCH (18:36)
[2016-10-24] VITALS (15 sets, daily range): BP systolic 140–160; BP diastolic 73–88; PULSE 81–92; RESP 20; TEMP 97.8–98.6; O2SAT 100
[2016-10-24] MEDS: INSULIN ASPART SUPPLEMENTAL SCALE SQ SCH ×6 (00:53→20:12)
[2016-10-24] MEDS: MILRINONE INJ 20 MG in SODIUM CHLORIDE 0.9% INJ 80 ML IV SCH ×5 (00:57→23:21)
[2016-10-24] MEDS: niMODipine 30 MG CAP PO SCH ×7 (00:57→23:59)
[2016-10-24] MEDS: FUROSEMIDE INJ 100 MG in SODIUM CHLORIDE 0.9% INJ 90 ML IV SCH ×2 (01:16→21:28)
[2016-10-24] MEDS: CHLORHEXIDINE GLUCONATE 2 % 1 PACK (2 CLOTHS) TOP SCH (04:00)
[2016-10-24] MEDS: HYDROCORTISONE SOD SUCCINATE 100 MG VIAL IV PUSH SCH ×2 (04:05→16:34)
[2016-10-24 05:00] LABS: MAGNESIUM 2.1 MG/DL (1.5-2.5); POTASSIUM 3.5 MEQ/L (3.5-5.1)
[2016-10-24] MEDS: levETIRAcetam INJ 500 MG in SODIUM CHLORIDE 0.9% INJ 100 ML IV SCH ×2 (05:45→17:49)
[2016-10-24] MEDS: FOSPHENYTOIN SODIUM 100 MG PE/2 ML VIAL IV SCH ×3 (05:45→22:02)
[2016-10-24] MEDS: HEPARIN SODIUM - SQ 10,000 UNITS/ML VIAL SQ SCH ×3 (05:46→22:03)
[2016-10-24] MEDS: fentaNYL DRIP 250 ML IV PRN ×2 (06:42→22:53)
[2016-10-24] MEDS: POTASSIUM CHLOR 40 MEQ PREMIX 100 ML IV PRN ×3 (07:13→22:26)
[2016-10-24] MEDS: CHLORHEXIDINE 0.12% (ORAL KIT) 15 ML CUP MT SCH ×2 (07:52→20:16)
[2016-10-24] MEDS: POLYETHYLENE GLYCOL 17 GM PKG OG-TUBE SCH ×2 (08:25→21:00)
[2016-10-24] MEDS: SENNOSIDES SYRUP 8.8 MG/5 ML CUP PO SCH ×2 (08:25→21:00)
[2016-10-24] MEDS: DOCUSATE SODIUM 100 MG/10 ML UDC PO SCH ×2 (08:25→21:00)
[2016-10-24] MEDS: SODIUM CHLORIDE 0.9% FLUSH 10 ML FLUSH IV FLUSH SCH ×2 (08:25→21:00)
[2016-10-24] MEDS: ARTIFICIAL TEARS OPTH SOLN 15 ML BTL EACH EYE SCH ×3 (08:25→17:47)
[2016-10-24] MEDS: LACTULOSE SYRUP 20 GM/30 ML CUP OG-TUBE SCH ×2 (08:25→21:00)
[2016-10-24] MEDS: LANSOPRAZOLE SOLUTAB 30 MG TAB NG SCH (09:27)
[2016-10-24] MEDS: SODIUM CHLORIDE 1 GRAM TAB PO SCH ×3 (09:27→17:48)
--- NOTE | 2016-10-24 09:41 | HHI.NSPN ---
(Luis Espinosa) History Chief Complaint: Unable to obtain due to patient's clinical condition. (Luis Espinosa) Interval History This is a 56-year-old male brought to the emergency room as an emergency transfer from another institution with history of intracranial bleed. He was transferred from [facility] and [facility]. Apparently the patient said that patient earlier this morning was coming down the stairs when he started feeling some left-sided weakness and numbness. He called 911 and by the time EMS arrived they detected severe neurological deficits and called a stroke alert. No seizure activity reported. No tongue biting. No incontinence of stool or urine. Patient was taken to [facility]. Apparently he was not able to move his right side . When patient arrived his mental status started to decline and he was intubated emergently in the ER for airway protection. A CT scan of the head showed extensive subarachnoid bleed. In addition he had a sizable subdural hematoma. He was brought emergently on the ventilator. He was on a propofol drip and well sedated. GCS was 3. He was on a Cardene drip and blood pressure was in the 120s. Neurosurgical consultation was requested 10/08. POD #1 Open eyes and follows commands 10/09/16 POD #2: Pt sedated on Diprivan. Intubated. When held pt opens eyes and follows commands. Pupils 3mm bilaterally reactive briskly bilaterally. 10/24/16: Pt intubated and sedated on versed and Fentanyl drips. Pupils 3mm bilaterally. (Luis Espinosa) System Review Comments Not able to obtain given clinical exam. (Luis Espinosa) Exam Results Vital Signs Date Time Temp Pulse Resp B/P (MAP) Pulse Ox O2 Delivery O2 Flow Rate FiO2 10/24/16 08:07 100 35 10/24/16 08:00 90 10/24/16 08:00 98.1 20 140/73 (95) Intake and Output 10/24/16 10/24/16 10/25/16 08:00 16:00 00:00 Intake Total 2190 ml Output Total 400 ml Balance 1790 ml (Luis Espinosa) Physical Examination Resp: Intubated. PRVC A/C rate 20 RR 10. FiO2 35% Heart: NSR no murmurs. Pt on Greyson drip. On Cardizem drip. Off Levophed. Abd: Soft positive bs Skin: SCDs in place bilaterally. Decompressive crani site and Ventric exit sites clean and dry without signs of infection. Muscle: Not following for muscle testing. Neuro: Pt sedated on Versed and Fentanyl drips. Not opening eyes. Pupils 3mm bilaterally, reactive bilaterally. (Luis Espinosa) Lab, Micro, Other Results Last Impressions Chest X-Ray 10/22/16 Signed Impressions: Service Date/Time: Saturday, October 22, 2016 13:54 - CONCLUSION: No significant change. No evidence of pneumothorax. Paddy Pineda MD Abdomen X-Ray 10/21/16599 Signed Impressions: Service Date/Time: Friday, October 21, 2016 03:50 - CONCLUSION: 1. NGT in the stomach. 2. General paucity of small bowel gas. This finding is nonspecific and occasionally may reflect fluid-filled loops of bowel. Otherwise, no dilated bowel loops to suggest significant ileus or obstruction. Kev Vergara MD Transcranial Doppler Study Complete 10/20/16 0600 Signed Impressions: Service Date/Time: October 07:54 - CONCLUSION: Slight interval elevation of flow velocity measurements and ratio on the left Yosvany Polk MD Liver Ultrasound 10/19/16 Signed Impressions: Service Date/Time: Wednesday, October 19, 2016 11:20 - CONCLUSION: 1. Sludge filled gallbladder with thickened wall. 2. Moderate size bilateral pleural effusions and mild upper abdominal ascites. Santos Vazquez MD Cerebral Arteriogram 10/19/16 Signed Impressions: Service Date/Time: Wednesday, October 19, 2016 12:47 - CONCLUSION: Uncomplicated cerebral arteriography with spasmolytic therapy as described in detail above. Yosvany Polk MD Head CT 10/17/16 Signed Impressions: Service Date/Time: Monday, October 17, 2016 15:06 - CONCLUSION: Ventricles are slightly larger without ventriculostomy. Edema in the left hemisphere the brain herniating through the operative site. Remington Woodward MD FACR Infusion Non-thrombolysis 10/14/16 1103 Signed Impressions: Service Date/Time: Friday, October 14, 2016 10:21 - CONCLUSION: 1. Uncomplicated infusion for spasmolysis Harvey Morejon MD Neck CTA 10/07/16 0000 Signed Impressions: Service Date/Time: Friday, October 07, 2016 15:03 - CONCLUSION: 1. Mild carotid bulb atherosclerotic calcification bilaterally. However, no significant stenosis is present in either internal carotid artery. 2. Paranasal sinus mucoperiosteal thickening. 3. Please refer to brain CTA report for description of the intracranial findings. Yosvany Ramirez MD Head CTA 10/07/16 0000 Signed Impressions: Service Date/Time: Friday, October 07, 2016 15:03 - CONCLUSION: 1. 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 2. Large left subdural hematoma measuring 1.3 cm in depth with a significant, 1.6 cm left to right subfalcine shift. Joni Shelton MD Laboratory Tests Test 10/23/16 16:02 10/24/16 03:58 Blood Urea Nitrogen 19 MG/DL 17 MG/DL Creatinine 0.52 MG/DL 0.49 MG/DL Random Glucose 265 MG/DL 253 MG/DL Calcium Level 8.3 MG/DL 8.3 MG/DL Phosphorus Level 2.4 MG/DL 2.8 MG/DL Magnesium Level 2.2 MG/DL 2.1 MG/DL Sodium Level 153 MEQ/L 152 MEQ/L Potassium Level 3.6 MEQ/L 3.5 MEQ/L Chloride Level 114 MEQ/L 109 MEQ/L Carbon Dioxide Level 34.1 MEQ/L 38.0 MEQ/L Anion Gap 5 MEQ/L 5 MEQ/L Estimat Glomerular Filtration Rate 166 ML/MIN 177 ML/MIN (Luis Espinosa) Medical Decision Making Impression and Plan A: 56 y/o M s/p left frontotemporal parietal decompressive craniectomy. Improved on follow up CT. P: Continue to monitor Neuro exam. Continue with current care Continue Protonix for stress ulcer prophylaxis Continue Colt hose and SCD's for DVT prophylaxis Continue Keppra for prophylaxis of seizures. Continue Nimotop for vasospasm prophylaxis. (Luis Espinosa) Attending Statement The exam, history, and the medical decision-making described in the above note were completed with the assistance of the mid-level provider. I reviewed and agree with the findings presented. I attest that I had a [id number] encounter with the patient on the same day, and personally performed and documented my assessment and findings in the medical record. (Terrance Arguelles MD) Luis Espinosa Oct 24, 2016 09:41 Terrance Arguelles MD Oct 24, 2016 20:57
--- NOTE | 2016-10-24 09:44 | HHI.CCPN ---
Subjective Remarks/Hospital Course 10/07: 56-year-old male presents with intracranial bleed. Patient was transferred from [facility] at [facility]. As per the paramedics and the nurse who assisted the patient said that patient earlier this morning was coming down the stairs when he started feeling some left-sided weakness and numbness. He called 911 and by the time EMS arrived they detected some deficit and called a stroke alert. Patient was taken to [facility]. When patient arrived his mental status started to decline and he was intubated emergently in the ER. A CAT scan of the head showed subarachnoid and subdural bleed. He was taking emergently to an angio suite for coiling of the aneurysm and later on to OR for subdural hematoma evacuation. 10/08: Remains sedated, orally intubated on mechanical ventilation. Arouses off sedation and following commands with both upper extremities earlier. Ventriculostomy in place. ICP 7, CPP mid 80s. 10/09: Remains sedated, orally intubated on mechanical ventilation. Arouses off sedation and follows commands with both upper extremities. Ventriculostomy in place. 10/10: Remains sedated, orally intubated on mechanical ventilation. Arouses off sedation and follows commands and both upper extremities. Ventriculostomy in place. ICP 5. Failed C Pap trial yesterday. 10/11: Extubated on 10/10, tolerating well. Awake and alert. Appears confused, moving all 4 extremities. Ventriculostomy discontinued today by neurosurgery 10/13: Patient has developed severe vasospasm at the left MCA territory on TCD's that was treated with IV route verapamil 10/14: patient extubated overnight. was originally following commands and neuro intact. TCDs this morning with increase LIs over yesterday, particularly Left MCA territory. On my evaluation early this morning, patient was aphasic, not moving the right side of his body, not following commands. SBP 140s at that time. net 2L negative/24h and uop almost 1L/hr at the time. I immediately bolused with 2L NS iv, placed arterial and central lines, started phenylephrine , increased SBP to goal 200 - 220 mmHg. called interventional neuroradiology and accompanied patient down personally to IR for IA verapamil again. I remained with the patient managing his hemodynamics down in IR and providing anxiolysis IV. I accompanied patient back up to [facility] where patient again was neuro intact and following commands. Sodium downtrending to 135 and urine studies and serum osms suggestive of urine sodium losses and high uop. added Florinef to mitigate sodium losses, and increased mivf to 500cc/hr to maintain euvolemia. later in the day patient decompensated requiring intubation for hyoxemia, cxr suggestive of pulmonary edema. 2d echo with evidence of EF 40%, septal hypokinesis, moderate MR. On levo, vaso, phenylephrine. difficult to get to goal SBP 200 mmHg, likely due to myocardial dysfunction. decreased goal to 180 - 200 mmHg to balance cardiac vs. neurologic goals. 10/15 Patient was discussed with Dr. Sullivan at shift change. Isuprel was initiated in effort to improve cardiac output as dobutamine not available and concerned with use of milrinone given long half life. Systolic blood pressure was relatively stable with perhaps some modest improvement from 170s to 180s for several hours after initiation. Notified when patient became abruptly hypotensive despite vasopressin, levophed 20 mcg/min, Greyson-Synephrine 300 mcg/m. He was also hypoxemic with sats in 80s despite PCV with PEEP 8 and FiO2 100%, respiratory rate in the 30s. He had decreased breath sounds bilaterally and was concerned for air trapping so removed from mechanical ventilation and bagged without improvement. Placed patient back on mechanical ventilation and provide recruitment maneuvers and increased PEEP to 12 which resulted in improvement of sats to 88% to 92%. Ordered Flolan. Discontinued isuprel and initiated epinephrine. R radial art line would not draw blood . Performed u/s guided femoral artery stick to confirm hypoxemia on ABG given poor wave form on pulse ox and PaO2 was 58. Placed new L radial art line and this resulted in ~ 30 point increase in SBP relative to prior line but patient ultimately on vasopressin, levophed 30 micrograms per minute, Greyson-Synephrine 300 micrograms per minute, epinephrine 12 mcg/min and unable to maintain target pressure (SBP in 150s). Given calcium chloride. patient with shaking movements all extremities, pupils 2mm and sluggish, no eye deviation. Rigors seemed most likely but unable to emergently rule out seizures so loaded with fosphenytoin to avoid secondary injury from seizure activity. WBC increasing and concern for HCAP so pancultured and placed on cefepime, vancomycin, azithromycin. Hydrocortisone 100 mg IV every 8 hours initiated due to concern for septic shock in a patient who has been refractory to all other above measures. Patient is to hemodynamically unstable and hypoxic for transport for neurologic imaging. Urine output has declined to 180-200 ML's per hour. Back off maintenance IV fluids to 200 ML's per hour. Bedside echo demonstrates decreased LV function with normal RV contractility and collapsible IVC suggesting ongoing maintenance fluid administration is appropriate. 10/15 additional visit: continued to deteriorate throughout the day. Seen multiple times. hypoxic on 100% fio2, flolan. required nimbex drip to maintain. repeat bedside critical care ultrasound still demonstrates severe LV dysfunction , decompressed RV, IVC more dilated than previous echo overnight, however still with respiratory variation. femoral arterial line placed with better waveform and higher pressure (likely SVR too high to allow accurate measurement of radial pressure). Pulse contour analysis without stroke volume variation, CI 3.6. SV 52mL. trialed additional albumin without improvement in hemodynamics. uop slower than before, but still significant salt wasting in the urine- sodium dropped to 125 from 132 despite already on 3% nacl infusion and aggressive sodium replacements. forced to give 23% nacl and salt tabs. declining clinically despite maximal therapy. 10/16: continues to be maximally critically ill. LV dysfunction persists. starting to get volume overloaded, but given concern for ongoing cerebral vasospasm, unable to actively diurese patient. sodium wasting persists, but uop downtrending slightly. very hypokalemic today, likely due to steroids. remains intubated, sedated, paralyzed, on flolan. CXR today appears worse with worsening airspace disease. Lactate remains slightly elevated, confirming persistent shock. 10/17: Lung infiltrates dense bilaterally, reflected in shunting and problems with oxygenation. Developed vasospasm on TCDs and required angiogram and intra- arterial verapamil again today. 10/18: SBP 160 - 170 range. FiO2 0.55. BNP > 5000. Not tolerating attempts at maintaining higher BP due to worsening heart failure. Several episodes of vasospasm. Watch daily TCDs closely. Sputum no growth. 10/19: Tmax 99.8. Currently 99. Remains on 4 vasopressors and epoprostenol Subjective 10/20: Yesterday. Returned IR for intra-arterial calcium channel jose infusion for vasospasm. Transcranial Dopplers today Still pending. Remains on significant vasopressor support. 10/21: Good response to diuresis, check BNP. TCDs pending. Heart failure remains a major problem. 10/22: CVP 21 - 22, finger tips blue, digits pale white despite high dose milrinone dilation. Greyson and vaso much reduced. Will try diltiazem gtt for digital ischemia. Urine remains > 200/hr and proximal limbs are well perfused. This digital ischemia appears to be a local phenomenon ala Raynaud's. New subcutaneous emphysema right anterior chest wall. 10/23: Old CVL removed. Fingertips remain marginal, some necrotic despite diltiazem and milrinone treatment for digital ischemia. Cardiac output > 7 liters/min and urine copious, confirming good perfusion pressure and flow. This continues to be a local phenomenon of the digits ala Raynaud's. We are trying to wean vasopressors off but are required to maintaining a cerebral perfusion pressure suitable for the treatment of aneurysmal subarachnoid bleed. Frankly, the importance of brain function eclipses fingertips. 10/24: Afebrile. Well perfused except for index finger left hand, few tips fingers right. Arms and hands warmer with resolving circumferential edema. Diltiazem and milrinone gtt continue. Greyson to 10 mics/min. Objective Vital Signs Date Time Temp Pulse Resp B/P (MAP) Pulse Ox O2 Delivery O2 Flow Rate FiO2 10/24/16 08:07 100 35 10/24/16 08:00 90 10/24/16 08:00 98.1 20 140/73 (95) Intake and Output 10/24/16 10/24/16 10/25/16 08:00 16:00 00:00 Intake Total 2190 ml Output Total 400 ml Balance 1790 ml Result Diagram: 10/21/16 0420 10/24/16 0358 Imaging Last Impressions Chest X-Ray 10/20/16 0000 Signed Impressions: Service Date/Time: October 03:47 - CONCLUSION: 1. Stable tubes and lines. 2. Stable bilateral lower lung zone airspace disease. 3. Stable small right pleural effusion. 4. No significant interval change. Kev Vergara MD Transcranial Doppler Study Complete 10/19/16 0600 Signed Impressions: Service Date/Time: Wednesday, October 19, 2016 08:02 - CONCLUSION: Suspect developing right MCA vasospasm Yosvany Polk MD Liver Ultrasound 10/19/16 0000 Signed Impressions: Service Date/Time: Wednesday, October 19, 2016 11:20 - CONCLUSION: 1. Sludge filled gallbladder with thickened wall. 2. Moderate size bilateral pleural effusions and mild upper abdominal ascites. Santos Vazquez MD Head CT 10/17/16 0000 Signed Impressions: Service Date/Time: Monday, October 17, 2016 15:06 - CONCLUSION: Ventricles are slightly larger without ventriculostomy. Edema in the left hemisphere the brain herniating through the operative site. Remington Woodward MD FACR Cerebral Arteriogram 10/17/16 0000 Signed Impressions: Service Date/Time: Monday, October 17, 2016 00:00 - CONCLUSION: 1. Uncompensated spasmolysis of the left middle cerebral artery Harvey Morejon MD Infusion Non-thrombolysis 10/14/16 1103 Signed Impressions: Service Date/Time: Friday, October 14, 2016 10:21 - CONCLUSION: 1. Uncomplicated infusion for spasmolysis Harvey Morejon MD Neck CTA 10/07/16 0000 Signed Impressions: Service Date/Time: Friday, October 07, 2016 15:03 - CONCLUSION: 1. Mild carotid bulb atherosclerotic calcification bilaterally. However, no significant stenosis is present in either internal carotid artery. 2. Paranasal sinus mucoperiosteal thickening. 3. Please refer to brain CTA report for description of the intracranial findings. Yosvany Ramirez MD Head CTA 10/07/16 0000 Signed Impressions: Service Date/Time: Friday, October 07, 2016 15:03 - CONCLUSION: 1. 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 2. Large left subdural hematoma measuring 1.3 cm in depth with a significant, 1.6 cm left to right subfalcine shift. Joni Shelton MD Objective Remarks GENERAL: 56-year-old male, currently sedated and paralyzed and orotracheally intubated/critically ill HEAD: Status post left craniectomy. Incision is clean dry and intact without EYES: About 4 mm bilaterally and questionably reactive NECK: Supple, trachea midline. orotracheal tube in place. CARDIOVASCULAR: Tachycardic, RR. S1, S2. No S4. 2/6 murmur left lower sternal border RESPIRATORY: Coarse rhonchi bilaterally anterior-posterior. Diminished breath sounds bilateral lower lobes. GASTROINTESTINAL: Abdomen soft, non-tender, nondistended. Hypoactive bowel sounds are appreciated MUSCULOSKELETAL: Ischemic changes to several finger tips both hands with early necrosis, pale white proximal digits. Arms and legs warm, well-perfused. NEURO EXAM: RASS -5. Procedures 10/13 Four-vessel cerebral angiography with verapamil treatment of vasospasm Date of Insertion: Oct 14, 2016 Line: Central Venous Catheter Side: Right Location: Subclavian A/P Assessment and Plan Neuro/Psych Status post left frontotemporal parietal craniectomy 10/08 for evacuation subdural hematoma/duraplasty Left subdural hematoma - 1.3 cm with 1.6 shift left to right Subarachnoid hemorrhage contents 5, Carroll grade 4 - left P-comm status post 4 coiling 10/08 - TCD's daily: 10/19 - vasospasm -intra-arterial verapamil - Nimodipine 60 mg every 4 hours for vasospasm to complete 21 days. Initiated - Levetiracetam 500 mg IV twice a day for seizure prophylaxis - 10/13 and 10/14 and 10/17) 10/19 left MCA territory vasospasm, status post successful verapamil treatment by IR with 20 mg verapamil - SBP goal 180 - 220 mmHg, although only able to press to 160 on maximal therapy given cardiac dysfunction. - check phenytoin level -> 7. - 10/17 CT brain - less hemisphere edema with herniation through left craniotomy site and CT brain for today - Dr. Perry/neurosurgery - Currently on midazolam 4 mg an hour and fentanyl drip at 150 an hour - 10/21 stopped cisatracurium drip at 4 g per kilo per minute titrate to maintain [id number] 2 out of 4 Respiratory: Acute hypoxic Respiratory failure-ARDS Noncardiogenic/neurogenic pulmonary edema - pulmonary edema, may be non-cardiogenic/neurogenic from SAH/vasospasm. cannot diurese due to active cerebral vasospasm. - [facility] /[birth year] - Ventilator bundle - Albuterol/age-appropriate versus every 6 hours with albuterol aerosols every 2 hours. Dyspnea - Epoprostenol 50 ng/kg/min aerosolized continue - Currently not appropriate for prone therapy due to subarachnoid hemorrhage/ cardiac dysfunction - Follow-up ABG/chest x-ray in a.m. - Reduce PEEP to 10 -> 5 Cardiovascular: Severe shock - septic and cardiogenic Severe LV dysfunction secondary to SAH Elevated troponin- secondary to SAH, unlikely to be ACS. Pulmonary hypertension -Currently on phenylephrine at 300 g per minute /norepinephrine 18 micrograms a minute, vasopressin 0.04 units a minute, epinephrine at 20 micrograms a minute to maintain to start blood pressure greater than 150 Continue stress dose hydrocortisone 100 mg IV every 8 hours - On milrinone 0.5 mics per kilogram per minute - goal euvolemia. +3 L. Will give low-dose diuretic today Currently off maintenance IV fluids Maximize concentration of all vasopressors - troponin elevation peak 4.71 likely secondary to his cardiac dysfunction secondary to SAH. unlikely to be ACS, and at this point unable to evaluate or intervene on coronary ischemia given how critically ill he is. Echocardiogram 10/14/16 revealed EF 40-45%. Septal hypokinesis. Moderate MR. Severe pulmonary hypertension with pulmonary artery pressures estimated 61 mmHg Cardiac index 3.8. SVV 10. Renal: Cerebral Salt Wasting/SIADH - q1h uop -- Strict I/Os - BNP > 5000 on 10/18 See below. Creatinine currently within normal limits FEN/GI: Severe hyponatremia Hypokalemia Elevated transaminases Hyperammonia -Currently on sodium chloride 3gm po TID - 3% NaCl 30cc/hr. - serial sodiums every 6 hours - ICU electrolyte protocol - aggressively replace potassium losses. - NPO while in shock. Will start TPN today - Lansoprazole 30 mg by tube daily for GI prophylaxis -Docusate sodium 100 mg twice a day, senna liquid 8.6 mg twice a day and polyethylene glycol 3350 17 g twice a day for bowel regimen Start lactulose 30 cc twice a day. Check ammonia level in a.m. Check liver ultrasound. Recheck LFTs in a.m. Likely secondary to hypoperfusion /shock Heme/ID: Septic Shock Possible HCAP -10/18 d/c empiric abx: vancomycin, cefepime, azithromycin. Will antonio culture again today and restart antibiotics with vancomycin, piperacillin/tazobactam on 10/19 Digital Ischemia with necrosis - Local phenomenon. CO always hyperdynamic range, urine copious. - Diltiazem and milrinone infusions continuous for 3 days. Pertinent cultures 10/15 - blood cultures - 1 out of 4 anaerobic gram-negative cocci possibly Veillonella 10/15 - sputum - beta strep not A, strep species 10/19 - urine - pending 10/19 - sputum - pending We'll recheck blood cultures 2 today Endocrine: Presumed Adrenal Insufficiency -Discontinued fludrocortisone 10/18. Monitor sodium 6 hours. - Current hydrocortisone 100 mg every 8 hours. Sliding-scale insulin with Novulog -Accu-Cheks every 4 hours to maintain euglycemia [place] protocol. Add levemir bid. Prophylaxis: GI Prophylaxis - lansoprazole DVT Prophylaxis-- SCDs, heparin subcutaneous Lines: - 10/14 right SC TLC, removed 10/22 - 10/14 right radial art line, removed 10/14 - 10/15 left radial art line, removed 10/16 - 10/15 left femoral art line - 10/22 left groin triple lumen placed - Maldonado Overall impression: Remains critically ill with unstable vasospasm following spontaneous subarachnoid hemorrhage. Digital ischemia has improved after reducing vasopressors on and . Milrinone improved CO but ischemia persists. BNP 2637 consistent with acute on chronic heart failure. Milrinone to 0.75. Urine output confirms good renal perfusion, CVP confirms good preload. He will lose fingers due to heart failure and local digital vasospasm. Staph on blood - ? possible embolic debris, but most likely a contaminant in light of organism. Critical care 40 mins aside from procedures. Rodriguez Collazo MD Oct 24, 2016 09:44
[2016-10-24] MEDS: INSULIN DETEMIR 100 UNITS/ML VIAL SQ SCH ×2 (10:10→20:13)
[2016-10-24] MEDS: VASOPRESSIN INJ 40 UNITS in DEXTROSE 5% IN WATER 100ML INJ 98 ML IV SCH ×2 (10:46)
[2016-10-24] MEDS: DILTIAZEM INJ 125 MG in SODIUM CHLORIDE 0.9% INJ 100 ML IV PRN ×2 (10:47→23:19)
[2016-10-24] MEDS: MIDAZOLAM 100 MG/100 ML INJ 100 ML IV PRN ×2 (11:50→22:54)
[2016-10-24 19:27] LABS: BICARBONATE 40.8 MEQ/L (21.0-32.0)
[2016-10-24 19:30] LABS: POTASSIUM 2.8 MEQ/L (3.5-5.1)
[2016-10-24] MEDS: FAT EMULSION 20% INJ 250 ML (@10 mls/hr) IV-CENTRAL SCH (20:10)
[2016-10-24] MEDS: CLINIMIX E 4.25/25 2000 mL- >42 mls/hr IV-CENTRAL SCH ×3 (20:11)
[2016-10-24] MEDS: POTASSIUM PHOSPHATE INJ 30 MMOL in SODIUM CHLOR 0.9% 250 ML INJ 250 ML IV PRN (20:39)
[2016-10-25] VITALS (19 sets, daily range): BP systolic 140–164; BP diastolic 68–82; PULSE 82–103; RESP 20–22; TEMP 98–98.6; O2SAT 97–100
[2016-10-25] MEDS: VASOPRESSIN INJ 40 UNITS in DEXTROSE 5% IN WATER 100ML INJ 98 ML IV SCH ×2 (02:30)
[2016-10-25] MEDS: CHLORHEXIDINE GLUCONATE 2 % 1 PACK (2 CLOTHS) TOP SCH (04:00)
[2016-10-25] MEDS: INSULIN ASPART SUPPLEMENTAL SCALE SQ SCH ×6 (04:00→21:15)
[2016-10-25] MEDS: niMODipine 30 MG CAP PO SCH ×5 (04:42→20:23)
[2016-10-25] MEDS: HYDROCORTISONE SOD SUCCINATE 100 MG VIAL IV PUSH SCH ×2 (04:42→16:10)
[2016-10-25] MEDS: MILRINONE INJ 20 MG in SODIUM CHLORIDE 0.9% INJ 80 ML IV SCH ×4 (05:24→22:10)
[2016-10-25 05:55] LABS: POTASSIUM 3.1 MEQ/L (3.5-5.1)
[2016-10-25] MEDS: levETIRAcetam INJ 500 MG in SODIUM CHLORIDE 0.9% INJ 100 ML IV SCH ×2 (05:55→16:10)
[2016-10-25] MEDS: HEPARIN SODIUM - SQ 10,000 UNITS/ML VIAL SQ SCH ×3 (05:55→22:00)
[2016-10-25] MEDS: FOSPHENYTOIN SODIUM 100 MG PE/2 ML VIAL IV SCH ×2 (06:28→14:00)
[2016-10-25] MEDS: CHLORHEXIDINE 0.12% (ORAL KIT) 15 ML CUP MT SCH ×2 (08:00→20:23)
[2016-10-25] MEDS: DOCUSATE SODIUM 100 MG/10 ML UDC PO SCH ×2 (08:29→20:23)
[2016-10-25] MEDS: LANSOPRAZOLE SOLUTAB 30 MG TAB NG SCH (08:29)
[2016-10-25] MEDS: SODIUM CHLORIDE 1 GRAM TAB PO SCH ×3 (08:29→16:11)
[2016-10-25] MEDS: LACTULOSE SYRUP 20 GM/30 ML CUP OG-TUBE SCH ×2 (08:29→20:23)
[2016-10-25] MEDS: INSULIN DETEMIR 100 UNITS/ML VIAL SQ SCH ×2 (08:30→22:00)
[2016-10-25] MEDS: SENNOSIDES SYRUP 8.8 MG/5 ML CUP PO SCH ×2 (08:30→20:23)
[2016-10-25] MEDS: ARTIFICIAL TEARS OPTH SOLN 15 ML BTL EACH EYE SCH ×3 (08:31→16:41)
[2016-10-25] MEDS: POLYETHYLENE GLYCOL 17 GM PKG OG-TUBE SCH ×2 (08:31→20:23)
[2016-10-25] MEDS ORDERED: PHARMACY ORDERED LAB ONE (08:45)
--- NOTE | 2016-10-25 08:45 | HHI.CCPN ---
Subjective Remarks/Hospital Course 10/07: 56-year-old male presents with intracranial bleed. Patient was transferred from [facility] at [facility]. As per the paramedics and the nurse who assisted the patient said that patient earlier this morning was coming down the stairs when he started feeling some left-sided weakness and numbness. He called 911 and by the time EMS arrived they detected some deficit and called a stroke alert. Patient was taken to [facility]. When patient arrived his mental status started to decline and he was intubated emergently in the ER. A CAT scan of the head showed subarachnoid and subdural bleed. He was taking emergently to an angio suite for coiling of the aneurysm and later on to OR for subdural hematoma evacuation. 10/08: Remains sedated, orally intubated on mechanical ventilation. Arouses off sedation and following commands with both upper extremities earlier. Ventriculostomy in place. ICP 7, CPP mid 80s. 10/09: Remains sedated, orally intubated on mechanical ventilation. Arouses off sedation and follows commands with both upper extremities. Ventriculostomy in place. 10/10: Remains sedated, orally intubated on mechanical ventilation. Arouses off sedation and follows commands and both upper extremities. Ventriculostomy in place. ICP 5. Failed C Pap trial yesterday. 10/11: Extubated on 10/10, tolerating well. Awake and alert. Appears confused, moving all 4 extremities. Ventriculostomy discontinued today by neurosurgery 10/13: Patient has developed severe vasospasm at the left MCA territory on TCD's that was treated with IV route verapamil 10/14: patient extubated overnight. was originally following commands and neuro intact. TCDs this morning with increase LIs over yesterday, particularly Left MCA territory. On my evaluation early this morning, patient was aphasic, not moving the right side of his body, not following commands. SBP 140s at that time. net 2L negative/24h and uop almost 1L/hr at the time. I immediately bolused with 2L NS iv, placed arterial and central lines, started phenylephrine , increased SBP to goal 200 - 220 mmHg. called interventional neuroradiology and accompanied patient down personally to IR for IA verapamil again. I remained with the patient managing his hemodynamics down in IR and providing anxiolysis IV. I accompanied patient back up to [facility] where patient again was neuro intact and following commands. Sodium downtrending to 135 and urine studies and serum osms suggestive of urine sodium losses and high uop. added Florinef to mitigate sodium losses, and increased mivf to 500cc/hr to maintain euvolemia. later in the day patient decompensated requiring intubation for hyoxemia, cxr suggestive of pulmonary edema. 2d echo with evidence of EF 40%, septal hypokinesis, moderate MR. On levo, vaso, phenylephrine. difficult to get to goal SBP 200 mmHg, likely due to myocardial dysfunction. decreased goal to 180 - 200 mmHg to balance cardiac vs. neurologic goals. 10/15 Patient was discussed with Dr. Sullivan at shift change. Isuprel was initiated in effort to improve cardiac output as dobutamine not available and concerned with use of milrinone given long half life. Systolic blood pressure was relatively stable with perhaps some modest improvement from 170s to 180s for several hours after initiation. Notified when patient became abruptly hypotensive despite vasopressin, levophed 20 mcg/min, Greyson-Synephrine 300 mcg/m. He was also hypoxemic with sats in 80s despite PCV with PEEP 8 and FiO2 100%, respiratory rate in the 30s. He had decreased breath sounds bilaterally and was concerned for air trapping so removed from mechanical ventilation and bagged without improvement. Placed patient back on mechanical ventilation and provide recruitment maneuvers and increased PEEP to 12 which resulted in improvement of sats to 88% to 92%. Ordered Flolan. Discontinued isuprel and initiated epinephrine. R radial art line would not draw blood . Performed u/s guided femoral artery stick to confirm hypoxemia on ABG given poor wave form on pulse ox and PaO2 was 58. Placed new L radial art line and this resulted in ~ 30 point increase in SBP relative to prior line but patient ultimately on vasopressin, levophed 30 micrograms per minute, Greyson-Synephrine 300 micrograms per minute, epinephrine 12 mcg/min and unable to maintain target pressure (SBP in 150s). Given calcium chloride. patient with shaking movements all extremities, pupils 2mm and sluggish, no eye deviation. Rigors seemed most likely but unable to emergently rule out seizures so loaded with fosphenytoin to avoid secondary injury from seizure activity. WBC increasing and concern for HCAP so pancultured and placed on cefepime, vancomycin, azithromycin. Hydrocortisone 100 mg IV every 8 hours initiated due to concern for septic shock in a patient who has been refractory to all other above measures. Patient is to hemodynamically unstable and hypoxic for transport for neurologic imaging. Urine output has declined to 180-200 ML's per hour. Back off maintenance IV fluids to 200 ML's per hour. Bedside echo demonstrates decreased LV function with normal RV contractility and collapsible IVC suggesting ongoing maintenance fluid administration is appropriate. 10/15 additional visit: continued to deteriorate throughout the day. Seen multiple times. hypoxic on 100% fio2, flolan. required nimbex drip to maintain. repeat bedside critical care ultrasound still demonstrates severe LV dysfunction , decompressed RV, IVC more dilated than previous echo overnight, however still with respiratory variation. femoral arterial line placed with better waveform and higher pressure (likely SVR too high to allow accurate measurement of radial pressure). Pulse contour analysis without stroke volume variation, CI 3.6. SV 52mL. trialed additional albumin without improvement in hemodynamics. uop slower than before, but still significant salt wasting in the urine- sodium dropped to 125 from 132 despite already on 3% nacl infusion and aggressive sodium replacements. forced to give 23% nacl and salt tabs. declining clinically despite maximal therapy. 10/16: continues to be maximally critically ill. LV dysfunction persists. starting to get volume overloaded, but given concern for ongoing cerebral vasospasm, unable to actively diurese patient. sodium wasting persists, but uop downtrending slightly. very hypokalemic today, likely due to steroids. remains intubated, sedated, paralyzed, on flolan. CXR today appears worse with worsening airspace disease. Lactate remains slightly elevated, confirming persistent shock. 10/17: Lung infiltrates dense bilaterally, reflected in shunting and problems with oxygenation. Developed vasospasm on TCDs and required angiogram and intra- arterial verapamil again today. 10/18: SBP 160 - 170 range. FiO2 0.55. BNP > 5000. Not tolerating attempts at maintaining higher BP due to worsening heart failure. Several episodes of vasospasm. Watch daily TCDs closely. Sputum no growth. 10/19: Tmax 99.8. Currently 99. Remains on 4 vasopressors and epoprostenol Subjective 10/20: Yesterday. Returned IR for intra-arterial calcium channel jose infusion for vasospasm. Transcranial Dopplers today Still pending. Remains on significant vasopressor support. 10/21: Good response to diuresis, check BNP. TCDs pending. Heart failure remains a major problem. 10/22: CVP 21 - 22, finger tips blue, digits pale white despite high dose milrinone dilation. Greyson and vaso much reduced. Will try diltiazem gtt for digital ischemia. Urine remains > 200/hr and proximal limbs are well perfused. This digital ischemia appears to be a local phenomenon ala Raynaud's. New subcutaneous emphysema right anterior chest wall. 10/23: Old CVL removed. Fingertips remain marginal, some necrotic despite diltiazem and milrinone treatment for digital ischemia. Cardiac output > 7 liters/min and urine copious, confirming good perfusion pressure and flow. This continues to be a local phenomenon of the digits ala Raynaud's. We are trying to wean vasopressors off but are required to maintaining a cerebral perfusion pressure suitable for the treatment of aneurysmal subarachnoid bleed. Frankly, the importance of brain function eclipses fingertips. 10/24: Afebrile. Well perfused except for index finger left hand, few tips fingers right. Arms and hands warmer with resolving circumferential edema. Diltiazem and milrinone gtt continue. Greyson to 10 mics/min. 10/25: Digits are warm and well perfused except left index and right 4th fingertips; demarcated and not viable. Dry. Diltiazem and milrinone infusions continue to help reverse digital ischemia. Objective Vital Signs Date Time Temp Pulse Resp B/P (MAP) Pulse Ox O2 Delivery O2 Flow Rate FiO2 10/25/16 06:00 83 10/25/16 05:24 145/73 10/25/16 04:40 100 35 10/25/16 04:00 98.6 20 Intake and Output 10/25/16 10/25/16 10/26/16 08:00 16:00 00:00 Intake Total 2574.6 ml Output Total 2800 ml Balance -225.4 ml Result Diagram: 10/21/16 0420 10/25/16 0450 Imaging Last Impressions Chest X-Ray 10/20/16 0000 Signed Impressions: Service Date/Time: October 03:47 - CONCLUSION: 1. Stable tubes and lines. 2. Stable bilateral lower lung zone airspace disease. 3. Stable small right pleural effusion. 4. No significant interval change. Kev Vergara MD Transcranial Doppler Study Complete 10/19/16 0600 Signed Impressions: Service Date/Time: Wednesday, October 19, 2016 08:02 - CONCLUSION: Suspect developing right MCA vasospasm Yosvany Polk MD Liver Ultrasound 10/19/16 0000 Signed Impressions: Service Date/Time: Wednesday, October 19, 2016 11:20 - CONCLUSION: 1. Sludge filled gallbladder with thickened wall. 2. Moderate size bilateral pleural effusions and mild upper abdominal ascites. Santos Vazquez MD Head CT 10/17/16 0000 Signed Impressions: Service Date/Time: Monday, October 17, 2016 15:06 - CONCLUSION: Ventricles are slightly larger without ventriculostomy. Edema in the left hemisphere the brain herniating through the operative site. Remington Woodward MD FACR Cerebral Arteriogram 10/17/16 0000 Signed Impressions: Service Date/Time: Monday, October 17, 2016 00:00 - CONCLUSION: 1. Uncompensated spasmolysis of the left middle cerebral artery Harvey Morejon MD Infusion Non-thrombolysis 10/14/16 1103 Signed Impressions: Service Date/Time: Friday, October 14, 2016 10:21 - CONCLUSION: 1. Uncomplicated infusion for spasmolysis Harvey Morejon MD Neck CTA 10/07/16 0000 Signed Impressions: Service Date/Time: Friday, October 07, 2016 15:03 - CONCLUSION: 1. Mild carotid bulb atherosclerotic calcification bilaterally. However, no significant stenosis is present in either internal carotid artery. 2. Paranasal sinus mucoperiosteal thickening. 3. Please refer to brain CTA report for description of the intracranial findings. Yosvany Ramirez MD Head CTA 10/07/16 0000 Signed Impressions: Service Date/Time: Friday, October 07, 2016 15:03 - CONCLUSION: 1. 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 2. Large left subdural hematoma measuring 1.3 cm in depth with a significant, 1.6 cm left to right subfalcine shift. Joni Shelton MD Objective Remarks GENERAL: 56-year-old male, currently sedated and orotracheally intubated/critically ill HEAD: Status post left craniectomy. Incision is clean dry and intact EYES: About 3 mm bilaterally and reactive NECK: Supple, trachea midline. orotracheal tube in place. CARDIOVASCULAR: Tachycardic, RR. S1, S2. No S4. 2/6 murmur left lower sternal border RESPIRATORY: Diminished breath sounds bilateral lower lobes. Scattered rhonchi throughout, less so. GASTROINTESTINAL: Abdomen soft, non-tender, nondistended. Hypoactive bowel sounds are appreciated MUSCULOSKELETAL: Ischemic changes to left index finger tip and right 4th fingertip, skin marginal at best. Other digits are warm and well perfused. Arms and legs warm, toes all well-perfused. NEURO EXAM: RASS -5. Procedures 10/13 Four-vessel cerebral angiography with verapamil treatment of vasospasm Date of Insertion: Oct 14, 2016 Line: Central Venous Catheter Side: Right Location: Subclavian A/P Assessment and Plan Neuro/Psych Status post left frontotemporal parietal craniectomy 10/08 for evacuation subdural hematoma/duraplasty Left subdural hematoma - 1.3 cm with 1.6 shift left to right Subarachnoid hemorrhage contents 5, Carroll grade 4 - left P-comm status post 4 coiling 10/08 - TCD's daily: 10/19 - vasospasm -intra-arterial verapamil - Nimodipine 60 mg every 4 hours for vasospasm to complete 21 days. Initiated - Levetiracetam 500 mg IV twice a day for seizure prophylaxis - 10/13 and 10/14 and 10/17) 10/19 left MCA territory vasospasm, status post successful verapamil treatment by IR with 20 mg verapamil - SBP goal 180 - 220 mmHg, although only able to press to 160 on maximal therapy given cardiac dysfunction. - check phenytoin level -> 7. - 10/17 CT brain - less hemisphere edema with herniation through left craniotomy site and CT brain for today - Dr. Perry/neurosurgery - Currently on midazolam 4 mg an hour and fentanyl drip at 150 an hour - 10/21 stopped cisatracurium drip at 4 g per kilo per minute titrate to maintain [id number] 2 out of 4 Respiratory: Acute hypoxic Respiratory failure-ARDS Noncardiogenic/neurogenic pulmonary edema - pulmonary edema, may be non-cardiogenic/neurogenic from SAH/vasospasm. cannot diurese due to active cerebral vasospasm. - PRVC 20/02/24/[birth year] - Ventilator bundle - Albuterol/age-appropriate versus every 6 hours with albuterol aerosols every 2 hours. Dyspnea - Epoprostenol 50 ng/kg/min aerosolized continue - Currently not appropriate for prone therapy due to subarachnoid hemorrhage/ cardiac dysfunction - Follow-up ABG/chest x-ray in a.m. - Reduce PEEP to 10 -> 5 Cardiovascular: Severe shock - septic and cardiogenic Severe LV dysfunction secondary to SAH Elevated troponin- secondary to SAH, unlikely to be ACS. Pulmonary hypertension -Currently on phenylephrine at 300 g per minute /norepinephrine 18 micrograms a minute, vasopressin 0.04 units a minute, epinephrine at 20 micrograms a minute to maintain to start blood pressure greater than 150 Continue stress dose hydrocortisone 100 mg IV every 8 hours - On milrinone 0.5 mics per kilogram per minute - goal euvolemia. +3 L. Will give low-dose diuretic today Currently off maintenance IV fluids Maximize concentration of all vasopressors - troponin elevation peak 4.71 likely secondary to his cardiac dysfunction secondary to SAH. unlikely to be ACS, and at this point unable to evaluate or intervene on coronary ischemia given how critically ill he is. Echocardiogram 10/14/16 revealed EF 40-45%. Septal hypokinesis. Moderate MR. Severe pulmonary hypertension with pulmonary artery pressures estimated 61 mmHg Cardiac index 3.8. CO 8.1 SVV 10-12. Renal: Cerebral Salt Wasting/SIADH - q1h uop -- Strict I/Os - BNP > 5000 on 10/18 See below. Creatinine currently within normal limits FEN/GI: Severe hyponatremia Hypokalemia Elevated transaminases Hyperammonia -Currently on sodium chloride 3gm po TID - 3% NaCl 30cc/hr. - serial sodiums every 6 hours - ICU electrolyte protocol - aggressively replace potassium losses. - NPO while in shock. Will start TPN today - Lansoprazole 30 mg by tube daily for GI prophylaxis -Docusate sodium 100 mg twice a day, senna liquid 8.6 mg twice a day and polyethylene glycol 3350 17 g twice a day for bowel regimen Start lactulose 30 cc twice a day. Check ammonia level in a.m. Check liver ultrasound. Recheck LFTs in a.m. Likely secondary to hypoperfusion /shock Heme/ID: Septic Shock Possible HCAP -10/18 d/c empiric abx: vancomycin, cefepime, azithromycin. Will antonio culture again today and restart antibiotics with vancomycin, piperacillin/tazobactam on 10/19 Digital Ischemia with necrosis - Local phenomenon. CO always hyperdynamic range, urine copious. - Diltiazem and milrinone infusions continuous for 5 days now. Pertinent cultures 10/15 - blood cultures - 1 out of 4 anaerobic gram-negative cocci possibly Veillonella 10/15 - sputum - beta strep not A, strep species 10/19 - urine - pending 10/19 - sputum - pending -> NG We'll recheck blood cultures 2 today Endocrine: Presumed Adrenal Insufficiency -Discontinued fludrocortisone 10/18. Monitor sodium 6 hours. - Current hydrocortisone 100 mg every 8 hours. Sliding-scale insulin with Novulog -Accu-Cheks every 4 hours to maintain euglycemia Jolon protocol. Add levemir bid. Taper off cortisone Prophylaxis: GI Prophylaxis - lansoprazole DVT Prophylaxis-- SCDs, heparin subcutaneous Lines: - 10/14 right SC TLC, removed 10/22 - 10/14 right radial art line, removed 10/14 - 10/15 left radial art line, removed 10/16 - 10/15 left femoral art line - 10/22 left groin triple lumen placed - Maldonado Overall impression: Remains critically ill with unstable vasospasm following spontaneous subarachnoid hemorrhage. Digital ischemia has improved after reducing vasopressors on and . Milrinone improved CO but ischemia to two fingertips persists. BNP 777 today consistent with acute on chronic heart failure. Milrinone to 0.75. Urine output continues to confirm good renal perfusion, CVP confirms good preload. He will lose fingertips due to heart failure and local digital vasospasm. Staph on blood - ? possible embolic debris , but most likely a contaminant in light of organism. Aside from demarcated fingers he is warm and well perfused. Critical care 44 mins Rodriguez Collazo MD Oct 25, 2016 08:45
[2016-10-25] MEDS: SODIUM CHLORIDE 0.9% FLUSH 10 ML FLUSH IV FLUSH SCH ×2 (09:00→20:23)
[2016-10-25] MEDS: PROPOFOL 1000 MG/100 ML IV PRN (10:36)
--- NOTE | 2016-10-25 12:38 | HHI.NSPN ---
(Malinda Hines) Note Status Status: Progress Note (Malinda Hines) Interval History Interval History This is a 56-year-old male brought to the emergency room as an emergency transfer from another institution with history of intracranial bleed. He was transferred from [facility] and [facility]. Apparently the patient said that patient earlier this morning was coming down the stairs when he started feeling some left-sided weakness and numbness. He called 911 and by the time EMS arrived they detected severe neurological deficits and called a stroke alert. No seizure activity reported. No tongue biting. No incontinence of stool or urine. Patient was taken to [facility]. Apparently he was not able to move his right side . When patient arrived his mental status started to decline and he was intubated emergently in the ER for airway protection. A CT scan of the head showed extensive subarachnoid bleed. In addition he had a sizable subdural hematoma. He was brought emergently on the ventilator. He was on a propofol drip and well sedated. GCS was 3. He was on a Cardene drip and blood pressure was in the 120s. Neurosurgical consultation was requested 10/08. POD #1 Open eyes and follows commands 10/12. Doing very well. Neurologically stable. Patient is in restraints secondary to pulling out his [place] multiple times. 10/13. Much more lethargic, difficult to speak with new aphasia 10/14. Improved after angiography. Today he developed new onset of aphasia and right hemiparesis 10/17. Intubated and sedated. Lung infiltrates dense bilaterally, reflected in shunting and problems with oxygenation. 10/18: underwent endovascular verapamil infusion to left MCA vasospasm yesterday. TCD today pending. left flap pak today. Intubated and sedated. continues to be on multiple pressors. on 3% NS. 10/19: currently unstable for travel for repeat CT Head this am. no changes with neuro checks, remains intubated, sedated. pupils equal. continues on multiple pressors support 10/20: intubated and mildly sedated. remains on multiple pressors. pneumonia worsening. TCD this am reports slight increase in flow velocity to left, he underwent cerebral angiography yesterday with endovascular verapamil infusion right ICA. 10/21: intubated, sedated on fentanyl and versed. On Nimbex. 10/25: off Nimbex. Mildly opening eyes today. (Malinda Hines) Labs, Micro, & Vital Signs Results Date Time Temp Pulse Resp B/P (MAP) Pulse Ox O2 Delivery O2 Flow Rate FiO2 10/25/16 12:23 100 35 10/25/16 10:37 102 156/79 10/25/16 10:00 99 10/25/16 09:13 100 35 10/25/16 08:00 98.0 90 20 164/82 (109) 100 10/25/16 08:00 35 10/25/16 08:00 90 10/25/16 06:00 83 10/25/16 05:24 85 145/73 10/25/16 04:40 100 35 10/25/16 04:00 82 10/25/16 04:00 35 10/25/16 04:00 98.6 82 20 160/79 (106) 100 10/25/16 02:30 84 158/80 10/25/16 02:00 86 10/25/16 01:20 100 35 10/25/16 00:00 90 10/25/16 00:00 35 10/25/16 00:00 98.5 90 20 156/82 (106) 100 10/24/16 23:21 91 157/82 10/24/16 23:19 91 158/82 10/24/16 22:23 100 35 10/24/16 22:00 92 10/24/16 20:00 35 10/24/16 20:00 86 10/24/16 20:00 98.4 89 20 160/80 (106) 100 10/24/16 19:30 100 35 10/24/16 17:47 85 154/78 10/24/16 16:27 100 35 10/24/16 16:00 98.6 82 20 157/81 (106) 100 10/24/16 16:00 82 Constitutional Vital Signs Date Time Temp Pulse Resp B/P (MAP) Pulse Ox O2 Delivery O2 Flow Rate FiO2 10/25/16 12:23 100 35 10/25/16 10:37 102 156/79 10/25/16 10:00 99 10/25/16 09:13 100 35 10/25/16 08:00 98.0 90 20 164/82 (109) 100 10/25/16 08:00 35 10/25/16 08:00 90 10/25/16 06:00 83 10/25/16 05:24 85 145/73 10/25/16 04:40 100 35 10/25/16 04:00 82 10/25/16 04:00 35 10/25/16 04:00 98.6 82 20 160/79 (106) 100 10/25/16 02:30 84 158/80 10/25/16 02:00 86 10/25/16 01:20 100 35 10/25/16 00:00 90 10/25/16 00:00 35 10/25/16 00:00 98.5 90 20 156/82 (106) 100 10/24/16 23:21 91 157/82 10/24/16 23:19 91 158/82 10/24/16 22:23 100 35 10/24/16 22:00 92 10/24/16 20:00 35 10/24/16 20:00 86 10/24/16 20:00 98.4 89 20 160/80 (106) 100 10/24/16 19:30 100 35 10/24/16 17:47 85 154/78 10/24/16 16:27 100 35 10/24/16 16:00 98.6 82 20 157/81 (106) 100 10/24/16 16:00 82 (Malinda Hines) Review of Systems ROS Limitations: Clinical Condition, Altered Mental Status (Malinda Hines) Physical Exam Mildly sedated, slight eye opening. Not focusing or tracking. Left flap is sinking in, soft. Surgical wound healing well, no evidence of infection CN: pupils 3-4 mm sluggish to react, eyes appears conjugated. ? mild right ptosis Motor: very minimal response to pain stimuli Diffuse extremity swelling. Reflexes: Plantars silent b/l Cerebellar: cannot assess due to clinical condition (Malinda Hines) Medications Current Medications Current Medications Medications (Trade) Dose Ordered Sig/Adali Route PRN Reason Start Time Stop Time Status Last Admin Dose Admin Chlorhexidine Gluconate (Peridex 0.12% Liq) 15 ml BID@08,20 MT 10/07/16 20:00 10/25/16 08:00 Levetriacetam 500 mg/Sodium Chloride 105 ml @ 400 mls/hr Q12H IV 10/08/16 06:00 10/25/16 05:55 Bisacodyl (Dulcolax Supp) 10 mg DAILY PRN RECTAL CONSTIPATION 10/07/16 18:30 Ondansetron HCl (Zofran Inj) 4 mg Q6H PRN IV NAUSEA OR VOMITING 10/07/16 18:30 Calcium Gluconate (Calcium Gluconate Inj) 1 gm UNSCH PRN IV SEE LABEL COMMENTS 10/07/16 18:30 10/16/16 10:00 Potassium Chloride 100 ml @ 50 mls/hr UNSCH PRN IV POTASSIUM LESS THAN 4 10/07/16 18:30 10/12/16 06:13 Magnesium Sulfate 4 gm/Sodium Chloride 108 ml @ 108 mls/hr UNSCH PRN IV MAGNESIUM LESS THAN 2 10/07/16 18:30 Acetaminophen (Tylenol) 650 mg Q4H PRN PO TEMP >100.4 10/07/16 18:30 10/12/16 18:15 Dextrose (D50w (Vial) Inj) 50 ml UNSCH PRN IV PUSH HYPOGLYCEMIA - SEE COMMENTS 10/07/16 19:15 Glucagon (Glucagon Inj) 1 mg UNSCH PRN OTHER HYPOGLYCEMIA-SEE COMMENTS 10/07/16 19:15 Propofol 100 ml @ 0 mls/hr TITRATE PRN IV Sedation 10/07/16 23:15 10/25/16 10:36 Nimodipine (Nimotop) 60 mg Q4HR PO 10/13/16 00:00 11/02/16 23:59 10/25/16 08:29 Vasopressin 40 units/Dextrose 100 ml @ 4.5 mls/hr [id number] IV 10/14/16 11:30 10/25/16 02:30 Fentanyl Citrate 250 ml @ 5 mls/hr TITRATE PRN IV SEDATION 10/14/16 15:00 10/24/16 22:53 Heparin Sodium (Porcine) (Heparin Inj) 5,000 units Q8HR SQ 10/14/16 22:00 10/25/16 05:55 Fosphenytoin Sodium (Cerebyx Inj) 100 mgpe Q8HR IV 10/15/16 10:00 10/25/16 06:28 Cisatracurium Besylate 100 mg/ Sodium Chloride 260 ml @ 11.24 mls/ hr TITRATE PRN IV TOF 1/4 10/15/16 13:00 10/21/16 12:59 Sodium Chloride (Sodium Chloride) 3 gm TID PO 10/15/16 13:15 10/25/16 08:29 Terbutaline Sulfate (Brethine Inj) 1 mg UNSCH PRN SQ FOR EXTRAVASATION PROTOCOL 10/15/16 15:45 Magnesium Oxide (Mag-Ox) 800 mg UNSCH PRN PO For Magnesium 1.2 - 1.6 mg/dL 10/16/16 09:15 Magnesium Sulfate 4 gm/Sodium Chloride 100 ml @ 50 mls/hr UNSCH PRN IV For Magnesium 0.9 - 1.1 mg/dL 10/16/16 09:15 Magnesium Sulfate 2 gm/Sodium Chloride 100 ml @ 50 mls/hr UNSCH PRN IV For Magnesium 1.2 - 1.6 mg/dL 10/16/16 09:15 Potassium Chloride 100 ml @ 50 mls/hr Q2H PRN IV For Potassium 2.8 - 3.2 mEq/L 10/16/16 09:15 10/16/16 12:22 Potassium Chloride 100 ml @ 50 mls/hr Q2H PRN IV For Potassium 3.3 - 3.5 mEq/L 10/16/16 09:15 Potassium Chloride 100 ml @ 50 mls/hr Q2H PRN IV For Potassium 2.8 - 3.2 mEq/L 10/16/16 09:15 10/24/16 22:26 Potassium Chloride 100 ml @ 25 mls/hr UNSCH PRN IV For Potassium 3.3 - 3.5 mEq/L 10/16/16 09:15 10/24/16 07:13 Potassium Phosphate (K-Phos) 2,000 mg Q4H PRN PO For Phosphorus < 2.5 mg/dL 10/16/16 09:15 Potassium Phosphate (K-Phos) 2,000 mg UNSCH PRN PO/TUBE SEE LABEL COMMENTS 10/16/16 09:15 Potassium Phosphate 30 mmol/ Sodium Chloride 260 ml @ 42 mls/hr UNSCH PRN IV SEE LABEL COMMENTS 10/16/16 09:15 10/24/16 20:39 Sodium Phosphate 30 mmol/Sodium Chloride 250 ml @ 42 mls/hr UNSCH PRN IV For Phosphorus < 2.5 mg/dL 10/16/16 09:15 10/22/16 06:46 Norepinephrine Bitartrate 16 mg/ Sodium Chloride 250 ml @ 1.87 mls/hr TITRATE PRN IV Blood pressure management 10/17/16 10:15 10/20/16 01:07 Phenylephrine HCl 160 mg/Dextrose 500 ml @ 7.5 mls/hr TITRATE PRN IV Blood Pressure Management 10/17/16 10:15 10/23/16 14:21 Epinephrine HCl 8 mg/Dextrose 250 ml @ 5.62 mls/hr TITRATE PRN IV Blood Pressure Management 10/17/16 11:15 10/20/16 15:14 Calcium Gluconate 1 gm/Sodium Chloride 110 ml @ 110 mls/hr UNSCH PRN IV For Protein Corrected Calcium 10/18/16 09:45 10/18/16 10:22 Lansoprazole (Prevacid Odt) 30 mg DAILY NG 10/20/16 09:00 10/25/16 08:29 Sodium Chloride (NS Flush) 2 ml UNSCH PRN IV FLUSH FLUSH AFTER USING IV ACCESS 10/19/16 09:45 Sodium Chloride (NS Flush) 2 ml BID IV FLUSH 10/19/16 21:00 10/25/16 09:00 Artificial Tears (Tears Naturale Opth Soln) 1 drop TID EACH EYE 10/19/16 13:00 10/25/16 08:31 Albuterol Sulfate (Albuterol Neb) 2.5 mg Q2HR NEB PRN INH SOB/WHEEZING 10/19/16 09:45 Miscellaneous Information 1 [id number] XX 10/19/16 09:45 Chlorhexidine Gluconate (Chlorhexidine 2% Cloth) Taper DAILY@04 TOP 10/20/16 04:00 10/16/17 03:59 10/23/16 04:20 Chlorhexidine Gluconate (Chlorhexidine 2% Cloth) 3 pack UNSCH PRN TOP HYGIENIC CARE 10/19/16 09:45 Docusate Sodium (Colace Liq) 100 mg Q12HR PO 10/19/16 21:00 10/25/16 08:29 Sennosides (Senna Liq) 8.8 mg BID PO 10/19/16 21:00 10/25/16 08:30 Polyethylene Glycol (Miralax) 17 gm BID OG-TUBE 10/19/16 21:00 10/22/16 09:26 Lactulose (Lactulose Liq) 30 ml BID OG-TUBE 10/20/16 21:00 10/25/16 08:29 Insulin Aspart (NovoLOG SUPPLEMENTAL SCALE) 1 Q4HR SQ 10/20/16 12:00 10/24/16 20:12 Multivitamins 10 ml/Folic Acid 1 mg/Amino Acids/ Electrolytes/ Dextrose 2,010.2 ml @ 75 mls/hr Q24H IV-CENTRAL 10/20/16 20:00 10/24/16 20:11 Fat Emulsion Intravenous 250 ml @ 10 mls/hr Q24H IV-CENTRAL 10/20/16 20:00 10/24/16 20:10 Diltiazem HCl 125 mg/Sodium Chloride 125 ml @ 5 mls/hr TITRATE PRN IV Tachycardia 10/22/16 10:30 10/24/16 23:19 Milrinone Lactate 20 mg/Sodium Chloride 100 ml @ 20.99 mls/ hr Q4H46M IV 10/22/16 10:23 10/25/16 10:37 Insulin Detemir (Levemir Inj) 12 units Q12HR SQ 10/24/16 09:45 10/25/16 08:30 Furosemide 100 mg/ Sodium Chloride 100 ml @ 5 mls/hr CONTINUOUS IV 10/24/16 12:00 10/24/16 21:28 Hydrocortisone Sodium Succinate (SoluCORTEF INJ) 25 mg Q12H IV PUSH 10/25/16 16:00 Acetazolamide Sodium (Diamox Inj) 500 mg DAILY IV PUSH 10/25/16 09:00 10/27/16 23:00 10/25/16 09:10 (Malinda Hines) Medical Decision Making MDM Remarks 56 y/o male with 1. Subarachnoid hemorrhage, status post coiling posterior communicating artery aneurysm. s/p left decompressive craniectomy Vasospasms, s/p endovascular verapamil infusions 10/13/16, 10/17/16, 10/19/16 2. Possible seizures. Remains on Keppra and Cerebyx 3. Respiratory failure with worsening pneumonia (Malinda Hines) Plan Plan Remarks continue neuro checks and follow up exam cont HHH therapy for vasospasms. Keep SBP around 160-180 cont critical care management daily PT and OT cont Protonix for stress ulcer prophylaxis continue TEDs and SCD's for DVT prophylaxis cont antiepileptic drugs for seizures (Malinda Hines) Attending Statement The exam, history, and the medical decision-making described in the above note were completed with the assistance of the mid-level provider. I reviewed and agree with the findings presented. I attest that I had a [id number] encounter with the patient on the same day, and personally performed and documented my assessment and findings in the medical record. (George Perry MD) Malinda Hines Oct 25, 2016 12:38 George Perry MD Oct 30, 2016 19:22
[2016-10-25] MEDS: FUROSEMIDE INJ 100 MG in SODIUM CHLORIDE 0.9% INJ 90 ML IV SCH (17:21)
[2016-10-25] MEDS: fentaNYL DRIP 250 ML IV PRN (17:21)
[2016-10-25 17:54] LABS: BICARBONATE 36.7 MEQ/L (21.0-32.0); MAGNESIUM 2.1 MG/DL (1.5-2.5); POTASSIUM 3.2 MEQ/L (3.5-5.1)
[2016-10-25] MEDS: POTASSIUM CHLOR 40 MEQ PREMIX 100 ML IV PRN ×2 (18:19→22:18)
[2016-10-25] MEDS: CLINIMIX E 4.25/25 2000 mL- >42 mls/hr IV-CENTRAL SCH ×3 (20:21)
[2016-10-25] MEDS: FAT EMULSION 20% INJ 250 ML (@10 mls/hr) IV-CENTRAL SCH (20:25)
[2016-10-25] MEDS: PHENYTOIN INJ 100 MG/2 ML VIAL IV SCH (22:01)
[2016-10-26] VITALS (19 sets, daily range): BP systolic 112–135; BP diastolic 60–72; PULSE 85–99; RESP 20–21; TEMP 98.5–98.8; O2SAT 93–100
[2016-10-26] MEDS: niMODipine 30 MG CAP PO SCH ×6 (00:40→20:35)
[2016-10-26] MEDS: DILTIAZEM INJ 125 MG in SODIUM CHLORIDE 0.9% INJ 100 ML IV PRN ×2 (02:40→15:45)
[2016-10-26] MEDS: CHLORHEXIDINE GLUCONATE 2 % 1 PACK (2 CLOTHS) TOP SCH (04:00)
[2016-10-26] MEDS: INSULIN ASPART SUPPLEMENTAL SCALE SQ SCH ×6 (04:00→20:00)
[2016-10-26] MEDS: MILRINONE INJ 20 MG in SODIUM CHLORIDE 0.9% INJ 80 ML IV SCH ×3 (04:02→15:45)
[2016-10-26] MEDS: HYDROCORTISONE SOD SUCCINATE 100 MG VIAL IV PUSH SCH ×2 (04:06→15:25)
[2016-10-26 05:13] LABS: BICARBONATE 34.3 MEQ/L (21.0-32.0); MAGNESIUM 2.1 MG/DL (1.5-2.5); POTASSIUM 3.1 MEQ/L (3.5-5.1)
[2016-10-26] MEDS: PHENYTOIN INJ 100 MG/2 ML VIAL IV SCH ×3 (05:57→22:56)
[2016-10-26] MEDS: levETIRAcetam INJ 500 MG in SODIUM CHLORIDE 0.9% INJ 100 ML IV SCH ×2 (05:58→17:40)
[2016-10-26] MEDS: HEPARIN SODIUM - SQ 10,000 UNITS/ML VIAL SQ SCH ×3 (05:58→22:56)
[2016-10-26] MEDS: CHLORHEXIDINE 0.12% (ORAL KIT) 15 ML CUP MT SCH ×2 (08:00→20:35)
[2016-10-26] MEDS: SODIUM CHLORIDE 1 GRAM TAB PO SCH ×3 (08:35→17:41)
[2016-10-26] MEDS: LANSOPRAZOLE SOLUTAB 30 MG TAB NG SCH (08:35)
[2016-10-26] MEDS: PROPOFOL 1000 MG/100 ML IV PRN (08:36)
[2016-10-26] MEDS: POTASSIUM CHLOR 40 MEQ PREMIX 100 ML IV PRN ×2 (08:36→17:40)
[2016-10-26] MEDS: DOCUSATE SODIUM 100 MG/10 ML UDC PO SCH ×2 (09:00→20:36)
[2016-10-26] MEDS: SODIUM CHLORIDE 0.9% FLUSH 10 ML FLUSH IV FLUSH SCH ×2 (09:00→20:36)
[2016-10-26] MEDS: ARTIFICIAL TEARS OPTH SOLN 15 ML BTL EACH EYE SCH ×3 (09:00→17:41)
[2016-10-26] MEDS: INSULIN DETEMIR 100 UNITS/ML VIAL SQ SCH ×2 (09:00→20:36)
[2016-10-26] MEDS: LACTULOSE SYRUP 20 GM/30 ML CUP OG-TUBE SCH ×2 (09:00→20:36)
[2016-10-26] MEDS: SENNOSIDES SYRUP 8.8 MG/5 ML CUP PO SCH ×2 (09:00→20:36)
[2016-10-26] MEDS: POLYETHYLENE GLYCOL 17 GM PKG OG-TUBE SCH ×2 (09:00→20:36)
--- NOTE | 2016-10-26 10:36 | HHI.CCPN ---
Subjective Remarks/Hospital Course 10/07: 56-year-old male presents with intracranial bleed. Patient was transferred from [facility] at [facility]. As per the paramedics and the nurse who assisted the patient said that patient earlier this morning was coming down the stairs when he started feeling some left-sided weakness and numbness. He called 911 and by the time EMS arrived they detected some deficit and called a stroke alert. Patient was taken to [facility]. When patient arrived his mental status started to decline and he was intubated emergently in the ER. A CAT scan of the head showed subarachnoid and subdural bleed. He was taking emergently to an angio suite for coiling of the aneurysm and later on to OR for subdural hematoma evacuation. 10/08: Remains sedated, orally intubated on mechanical ventilation. Arouses off sedation and following commands with both upper extremities earlier. Ventriculostomy in place. ICP 7, CPP mid 80s. 10/09: Remains sedated, orally intubated on mechanical ventilation. Arouses off sedation and follows commands with both upper extremities. Ventriculostomy in place. 10/10: Remains sedated, orally intubated on mechanical ventilation. Arouses off sedation and follows commands and both upper extremities. Ventriculostomy in place. ICP 5. Failed C Pap trial yesterday. 10/11: Extubated on 10/10, tolerating well. Awake and alert. Appears confused, moving all 4 extremities. Ventriculostomy discontinued today by neurosurgery 10/13: Patient has developed severe vasospasm at the left MCA territory on TCD's that was treated with IV route verapamil 10/14: patient extubated overnight. was originally following commands and neuro intact. TCDs this morning with increase LIs over yesterday, particularly Left MCA territory. On my evaluation early this morning, patient was aphasic, not moving the right side of his body, not following commands. SBP 140s at that time. net 2L negative/24h and uop almost 1L/hr at the time. I immediately bolused with 2L NS iv, placed arterial and central lines, started phenylephrine , increased SBP to goal 200 - 220 mmHg. called interventional neuroradiology and accompanied patient down personally to IR for IA verapamil again. I remained with the patient managing his hemodynamics down in IR and providing anxiolysis IV. I accompanied patient back up to [facility] where patient again was neuro intact and following commands. Sodium downtrending to 135 and urine studies and serum osms suggestive of urine sodium losses and high uop. added Florinef to mitigate sodium losses, and increased mivf to 500cc/hr to maintain euvolemia. later in the day patient decompensated requiring intubation for hyoxemia, cxr suggestive of pulmonary edema. 2d echo with evidence of EF 40%, septal hypokinesis, moderate MR. On levo, vaso, phenylephrine. difficult to get to goal SBP 200 mmHg, likely due to myocardial dysfunction. decreased goal to 180 - 200 mmHg to balance cardiac vs. neurologic goals. 10/15 Patient was discussed with Dr. Sullivan at shift change. Isuprel was initiated in effort to improve cardiac output as dobutamine not available and concerned with use of milrinone given long half life. Systolic blood pressure was relatively stable with perhaps some modest improvement from 170s to 180s for several hours after initiation. Notified when patient became abruptly hypotensive despite vasopressin, levophed 20 mcg/min, Greyson-Synephrine 300 mcg/m. He was also hypoxemic with sats in 80s despite PCV with PEEP 8 and FiO2 100%, respiratory rate in the 30s. He had decreased breath sounds bilaterally and was concerned for air trapping so removed from mechanical ventilation and bagged without improvement. Placed patient back on mechanical ventilation and provide recruitment maneuvers and increased PEEP to 12 which resulted in improvement of sats to 88% to 92%. Ordered Flolan. Discontinued isuprel and initiated epinephrine. R radial art line would not draw blood . Performed u/s guided femoral artery stick to confirm hypoxemia on ABG given poor wave form on pulse ox and PaO2 was 58. Placed new L radial art line and this resulted in ~ 30 point increase in SBP relative to prior line but patient ultimately on vasopressin, levophed 30 micrograms per minute, Greyson-Synephrine 300 micrograms per minute, epinephrine 12 mcg/min and unable to maintain target pressure (SBP in 150s). Given calcium chloride. patient with shaking movements all extremities, pupils 2mm and sluggish, no eye deviation. Rigors seemed most likely but unable to emergently rule out seizures so loaded with fosphenytoin to avoid secondary injury from seizure activity. WBC increasing and concern for HCAP so pancultured and placed on cefepime, vancomycin, azithromycin. Hydrocortisone 100 mg IV every 8 hours initiated due to concern for septic shock in a patient who has been refractory to all other above measures. Patient is to hemodynamically unstable and hypoxic for transport for neurologic imaging. Urine output has declined to 180-200 ML's per hour. Back off maintenance IV fluids to 200 ML's per hour. Bedside echo demonstrates decreased LV function with normal RV contractility and collapsible IVC suggesting ongoing maintenance fluid administration is appropriate. 10/15 additional visit: continued to deteriorate throughout the day. Seen multiple times. hypoxic on 100% fio2, flolan. required nimbex drip to maintain. repeat bedside critical care ultrasound still demonstrates severe LV dysfunction , decompressed RV, IVC more dilated than previous echo overnight, however still with respiratory variation. femoral arterial line placed with better waveform and higher pressure (likely SVR too high to allow accurate measurement of radial pressure). Pulse contour analysis without stroke volume variation, CI 3.6. SV 52mL. trialed additional albumin without improvement in hemodynamics. uop slower than before, but still significant salt wasting in the urine- sodium dropped to 125 from 132 despite already on 3% nacl infusion and aggressive sodium replacements. forced to give 23% nacl and salt tabs. declining clinically despite maximal therapy. 10/16: continues to be maximally critically ill. LV dysfunction persists. starting to get volume overloaded, but given concern for ongoing cerebral vasospasm, unable to actively diurese patient. sodium wasting persists, but uop downtrending slightly. very hypokalemic today, likely due to steroids. remains intubated, sedated, paralyzed, on flolan. CXR today appears worse with worsening airspace disease. Lactate remains slightly elevated, confirming persistent shock. 10/17: Lung infiltrates dense bilaterally, reflected in shunting and problems with oxygenation. Developed vasospasm on TCDs and required angiogram and intra- arterial verapamil again today. 10/18: SBP 160 - 170 range. FiO2 0.55. BNP > 5000. Not tolerating attempts at maintaining higher BP due to worsening heart failure. Several episodes of vasospasm. Watch daily TCDs closely. Sputum no growth. 10/19: Tmax 99.8. Currently 99. Remains on 4 vasopressors and epoprostenol Subjective 10/20: Yesterday. Returned IR for intra-arterial calcium channel jose infusion for vasospasm. Transcranial Dopplers today Still pending. Remains on significant vasopressor support. 10/21: Good response to diuresis, check BNP. TCDs pending. Heart failure remains a major problem. 10/22: CVP 21 - 22, finger tips blue, digits pale white despite high dose milrinone dilation. Greyson and vaso much reduced. Will try diltiazem gtt for digital ischemia. Urine remains > 200/hr and proximal limbs are well perfused. This digital ischemia appears to be a local phenomenon ala Raynaud's. New subcutaneous emphysema right anterior chest wall. 10/23: Old CVL removed. Fingertips remain marginal, some necrotic despite diltiazem and milrinone treatment for digital ischemia. Cardiac output > 7 liters/min and urine copious, confirming good perfusion pressure and flow. This continues to be a local phenomenon of the digits ala Raynaud's. We are trying to wean vasopressors off but are required to maintaining a cerebral perfusion pressure suitable for the treatment of aneurysmal subarachnoid bleed. Frankly, the importance of brain function eclipses fingertips. 10/24: Afebrile. Well perfused except for index finger left hand, few tips fingers right. Arms and hands warmer with resolving circumferential edema. Diltiazem and milrinone gtt continue. Greyson to 10 mics/min. 10/25: Digits are warm and well perfused except left index and right 4th fingertips; demarcated and not viable. Dry. Diltiazem and milrinone infusions continue to help reverse digital ischemia. 10/26: Forced diuresis continues and BP remains nicely elevated. Hands and digits warm aside from left index and right 4th fingertips which have demarcated. Objective Vital Signs Date Time Temp Pulse Resp B/P (MAP) Pulse Ox O2 Delivery O2 Flow Rate FiO2 10/26/16 08:38 90 116/62 10/26/16 07:59 100 45 10/26/16 04:00 98.8 21 Intake and Output 10/26/16 10/26/16 10/27/16 08:00 16:00 00:00 Intake Total 2169.5 ml Output Total 3500 ml Balance -1330.5 ml Result Diagram: 10/26/16 0417 Imaging Last Impressions Chest X-Ray 10/20/16 0000 Signed Impressions: Service Date/Time: October 03:47 - CONCLUSION: 1. Stable tubes and lines. 2. Stable bilateral lower lung zone airspace disease. 3. Stable small right pleural effusion. 4. No significant interval change. Kev Vergara MD Transcranial Doppler Study Complete 10/19/16 0600 Signed Impressions: Service Date/Time: Wednesday, October 19, 2016 08:02 - CONCLUSION: Suspect developing right MCA vasospasm Yosvany Polk MD Liver Ultrasound 10/19/16 0000 Signed Impressions: Service Date/Time: Wednesday, October 19, 2016 11:20 - CONCLUSION: 1. Sludge filled gallbladder with thickened wall. 2. Moderate size bilateral pleural effusions and mild upper abdominal ascites. Santos Vazquez MD Head CT 10/17/16 0000 Signed Impressions: Service Date/Time: Monday, October 17, 2016 15:06 - CONCLUSION: Ventricles are slightly larger without ventriculostomy. Edema in the left hemisphere the brain herniating through the operative site. Remington Woodward MD FACR Cerebral Arteriogram 10/17/16 0000 Signed Impressions: Service Date/Time: Monday, October 17, 2016 00:00 - CONCLUSION: 1. Uncompensated spasmolysis of the left middle cerebral artery Harvey Morejon MD Infusion Non-thrombolysis 10/14/16 1103 Signed Impressions: Service Date/Time: Friday, October 14, 2016 10:21 - CONCLUSION: 1. Uncomplicated infusion for spasmolysis Harvey Morejon MD Neck CTA 10/07/16 0000 Signed Impressions: Service Date/Time: Friday, October 07, 2016 15:03 - CONCLUSION: 1. Mild carotid bulb atherosclerotic calcification bilaterally. However, no significant stenosis is present in either internal carotid artery. 2. Paranasal sinus mucoperiosteal thickening. 3. Please refer to brain CTA report for description of the intracranial findings. Yosvany Ramirez MD Head CTA 10/07/16 0000 Signed Impressions: Service Date/Time: Friday, October 07, 2016 15:03 - CONCLUSION: 1. 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 2. Large left subdural hematoma measuring 1.3 cm in depth with a significant, 1.6 cm left to right subfalcine shift. Joni Shelton MD Objective Remarks GENERAL: 56-year-old male, currently sedated and orotracheally intubated/critically ill HEAD: Status post left craniectomy. Incision is clean dry and intact EYES: About 3 mm bilaterally and reactive NECK: Supple, trachea midline. orotracheal tube in place. CARDIOVASCULAR: Tachycardic, RR. S1, S2. No S4. 2/6 murmur left lower sternal border RESPIRATORY: Diminished breath sounds bilateral lower lobes. Scattered rhonchi throughout, less so. GASTROINTESTINAL: Abdomen soft, non-tender, nondistended. Hypoactive bowel sounds are appreciated MUSCULOSKELETAL: Ischemic changes to left index finger tip and right 4th fingertip, skin marginal at best. Other digits have remained warm and well perfused. Arms and legs warm, toes all well-perfused. NEURO EXAM: RASS -5. Procedures 10/13 Four-vessel cerebral angiography with verapamil treatment of vasospasm Date of Insertion: Oct 14, 2016 Line: Central Venous Catheter Side: Right Location: Subclavian A/P Assessment and Plan Neuro/Psych Status post left frontotemporal parietal craniectomy 10/08 for evacuation subdural hematoma/duraplasty Left subdural hematoma - 1.3 cm with 1.6 shift left to right Subarachnoid hemorrhage contents 5, Carroll grade 4 - left P-comm status post 4 coiling 10/08 - TCD's daily: 10/19 - vasospasm -intra-arterial verapamil - Nimodipine 60 mg every 4 hours for vasospasm to complete 21 days. Initiated - Levetiracetam 500 mg IV twice a day for seizure prophylaxis - 10/13 and 10/14 and 10/17) 10/19 left MCA territory vasospasm, status post successful verapamil treatment by IR with 20 mg verapamil - SBP goal 180 - 220 mmHg, although only able to press to 160 on maximal therapy given cardiac dysfunction. - check phenytoin level -> 7. - 10/17 CT brain - less hemisphere edema with herniation through left craniotomy site and CT brain for today - Dr. Perry/neurosurgery - Currently on midazolam 4 mg an hour and fentanyl drip at 150 an hour - 10/21 stopped cisatracurium drip at 4 g per kilo per minute titrate to maintain [id number] 2 out of 4 Respiratory: Acute hypoxic Respiratory failure-ARDS Noncardiogenic/neurogenic pulmonary edema - pulmonary edema, may be non-cardiogenic/neurogenic from SAH/vasospasm. cannot diurese due to active cerebral vasospasm. - PRVC 20//02/24/54 - Ventilator bundle - Albuterol/age-appropriate versus every 6 hours with albuterol aerosols every 2 hours. Dyspnea - Epoprostenol 50 ng/kg/min aerosolized continue - Currently not appropriate for prone therapy due to subarachnoid hemorrhage/ cardiac dysfunction - Follow-up ABG/chest x-ray in a.m. - Reduce PEEP to 10 -> 5 Cardiovascular: Severe shock - septic and cardiogenic Severe LV dysfunction secondary to SAH Elevated troponin- secondary to SAH, unlikely to be ACS. Pulmonary hypertension -Currently on phenylephrine at 300 g per minute /norepinephrine 18 micrograms a minute, vasopressin 0.04 units a minute, epinephrine at 20 micrograms a minute to maintain to start blood pressure greater than 150 Continue stress dose hydrocortisone 100 mg IV every 8 hours - On milrinone 0.5 mics per kilogram per minute - goal euvolemia. +3 L. Will give low-dose diuretic today Currently off maintenance IV fluids Maximize concentration of all vasopressors - troponin elevation peak 4.71 likely secondary to his cardiac dysfunction secondary to SAH. unlikely to be ACS, and at this point unable to evaluate or intervene on coronary ischemia given how critically ill he is. Echocardiogram 10/14/16 revealed EF 40-45%. Septal hypokinesis. Moderate MR. Severe pulmonary hypertension with pulmonary artery pressures estimated 61 mmHg Cardiac index 3.8. CO 8.1 SVV 10-12. Renal: Cerebral Salt Wasting/SIADH - q1h uop -- Strict I/Os - BNP > 5000 on 10/18 See below. Creatinine currently within normal limits FEN/GI: Severe hyponatremia Hypokalemia Elevated transaminases Hyperammonia -Currently on sodium chloride 3gm po TID - 3% NaCl 30cc/hr. - serial sodiums every 6 hours - ICU electrolyte protocol - aggressively replace potassium losses. - NPO while in shock. Will start TPN today - Lansoprazole 30 mg by tube daily for GI prophylaxis -Docusate sodium 100 mg twice a day, senna liquid 8.6 mg twice a day and polyethylene glycol 3350 17 g twice a day for bowel regimen Start lactulose 30 cc twice a day. Check ammonia level in a.m. Check liver ultrasound. Recheck LFTs in a.m. Likely secondary to hypoperfusion /shock Heme/ID: Septic Shock Possible HCAP -9/5 d/c empiric abx: vancomycin, cefepime, azithromycin. Will antonio culture again today and restart antibiotics with vancomycin, piperacillin/tazobactam on 10/19 Digital Ischemia with necrosis - Local phenomenon. CO always hyperdynamic range, urine copious. - Diltiazem and milrinone infusions continuous for 5 days now. Pertinent cultures 10/15 - blood cultures - 1 out of 4 anaerobic gram-negative cocci possibly Veillonella 10/15 - sputum - beta strep not A, strep species 10/19 - urine - pending 10/19 - sputum - pending -> NG We'll recheck blood cultures 2 today Endocrine: Presumed Adrenal Insufficiency -Discontinued fludrocortisone 10/18. Monitor sodium 6 hours. - Current hydrocortisone 100 mg every 8 hours. Sliding-scale insulin with Novulog -Accu-Cheks every 4 hours to maintain euglycemia Latham protocol. Add levemir bid. Taper off cortisone Prophylaxis: GI Prophylaxis - lansoprazole DVT Prophylaxis-- SCDs, heparin subcutaneous Lines: - 10/14 right SC TLC, removed 10/22 - 10/14 right radial art line, removed 10/14 - 10/15 left radial art line, removed 10/16 - 10/15 left femoral art line - 10/22 left groin triple lumen placed - Maldonado Overall impression: Remains critically ill with unstable vasospasm following spontaneous subarachnoid hemorrhage. Digital ischemia has improved after reducing vasopressors on and . Milrinone improved CO but ischemia to two fingertips persists. BNP 777 today consistent with acute on chronic heart failure. Milrinone to 0.75. Urine output continues to confirm good renal perfusion, CVP confirms good preload. He will lose fingertips due to heart failure and local digital vasospasm. Staph on blood - ? possible embolic debris , but most likely a contaminant in light of organism. Aside from demarcated fingers he is warm and well perfused. Will slowly decrease diltiazem and milrinone. Critical care 45 mins Rodriguez Collazo MD Oct 26, 2016 10:36
[2016-10-26] MEDS: fentaNYL DRIP 250 ML IV PRN (11:03)
[2016-10-26] MEDS: VASOPRESSIN INJ 40 UNITS in DEXTROSE 5% IN WATER 100ML INJ 98 ML IV SCH ×2 (12:32)
--- NOTE | 2016-10-26 13:59 | HHI.NSPN ---
(Malinda Hines) Note Status Status: Progress Note (Malinda Hines) Interval History Interval History This is a 56-year-old male brought to the emergency room as an emergency transfer from another institution with history of intracranial bleed. He was transferred from [facility]. Apparently the patient said that patient earlier this morning was coming down the stairs when he started feeling some left-sided weakness and numbness. He called 911 and by the time EMS arrived they detected severe neurological deficits and called a stroke alert. No seizure activity reported. No tongue biting. No incontinence of stool or urine. Patient was taken to [facility]. Apparently he was not able to move his right side . When patient arrived his mental status started to decline and he was intubated emergently in the ER for airway protection. A CT scan of the head showed extensive subarachnoid bleed. In addition he had a sizable subdural hematoma. He was brought emergently on the ventilator. He was on a propofol drip and well sedated. GCS was 3. He was on a Cardene drip and blood pressure was in the 120s. Neurosurgical consultation was requested 10/08. POD #1 Open eyes and follows commands 10/12. Doing very well. Neurologically stable. Patient is in restraints secondary to pulling out his Maldonado multiple times. 10/13. Much more lethargic, difficult to speak with new aphasia 10/14. Improved after angiography. Today he developed new onset of aphasia and right hemiparesis 10/17. Intubated and sedated. Lung infiltrates dense bilaterally, reflected in shunting and problems with oxygenation. 10/18: underwent endovascular verapamil infusion to left MCA vasospasm yesterday. TCD today pending. left flap pak today. Intubated and sedated. continues to be on multiple pressors. on 3% NS. 10/19: currently unstable for travel for repeat CT Head this am. no changes with neuro checks, remains intubated, sedated. pupils equal. continues on multiple pressors support 10/20: intubated and mildly sedated. remains on multiple pressors. pneumonia worsening. TCD this am reports slight increase in flow velocity to left, he underwent cerebral angiography yesterday with endovascular verapamil infusion right ICA. 10/21: intubated, sedated on fentanyl and versed. On Nimbex. 10/25: off Nimbex. Mildly opening eyes today. 10/26: opening eyes more today, ?focusing (Malinda Hines) Labs, Micro, & Vital Signs Results Date Time Temp Pulse Resp B/P (MAP) Pulse Ox O2 Delivery O2 Flow Rate FiO2 10/26/16 12:12 100 45 10/26/16 08:38 90 116/62 10/26/16 07:59 100 45 10/26/16 06:00 93 10/26/16 05:59 93 45 10/26/16 04:02 97 126/66 10/26/16 04:00 98.8 99 21 126/66 (86) 97 10/26/16 04:00 99 35 10/26/16 04:00 35 10/26/16 04:00 99 10/26/16 02:40 98 142/85 10/26/16 02:00 96 10/26/16 01:05 97 35 10/26/16 00:00 98.8 96 20 118/60 (79) 97 10/26/16 00:00 96 10/26/16 00:00 35 10/25/16 22:30 97 35 10/25/16 22:10 104 150/77 10/25/16 22:00 100 10/25/16 20:00 98.4 92 22 144/68 (93) 98 10/25/16 20:00 35 10/25/16 20:00 92 10/25/16 19:23 100 35 10/25/16 18:00 90 10/25/16 16:12 95 145/79 10/25/16 16:00 94 10/25/16 16:00 35 10/25/16 16:00 98.2 94 21 140/69 (92) 100 10/25/16 15:43 100 35 10/25/16 14:00 95 Constitutional Vital Signs Date Time Temp Pulse Resp B/P (MAP) Pulse Ox O2 Delivery O2 Flow Rate FiO2 10/26/16 12:12 100 45 10/26/16 08:38 90 116/62 10/26/16 07:59 100 45 10/26/16 06:00 93 10/26/16 05:59 93 45 10/26/16 04:02 97 126/66 10/26/16 04:00 98.8 99 21 126/66 (86) 97 10/26/16 04:00 99 35 10/26/16 04:00 35 10/26/16 04:00 99 10/26/16 02:40 98 142/85 10/26/16 02:00 96 10/26/16 01:05 97 35 10/26/16 00:00 98.8 96 20 118/60 (79) 97 10/26/16 00:00 96 10/26/16 00:00 35 10/25/16 22:30 97 35 10/25/16 22:10 104 150/77 10/25/16 22:00 100 10/25/16 20:00 98.4 92 22 144/68 (93) 98 10/25/16 20:00 35 10/25/16 20:00 92 10/25/16 19:23 100 35 10/25/16 18:00 90 10/25/16 16:12 95 145/79 10/25/16 16:00 94 10/25/16 16:00 35 10/25/16 16:00 98.2 94 21 140/69 (92) 100 10/25/16 15:43 100 35 10/25/16 14:00 95 (Malinda Hines) Review of Systems ROS Limitations: Intubated (Malinda Hines) Physical Exam Opening eyes, ?focusing. Left flap is sinking in, soft. Surgical wound healing well, no evidence of infection CN: pupils 3-4 mm sluggish to react, eyes appears conjugated. ? mild right ptosis Motor: very minimal response to pain stimuli to upper extremities there is necrosis to left index distal finger Diffuse extremity swelling. Reflexes: Plantars silent b/l Cerebellar: cannot assess due to clinical condition (Malinda Hines) Medications Current Medications Current Medications Medications (Trade) Dose Ordered Sig/Adali Route PRN Reason Start Time Stop Time Status Last Admin Dose Admin Chlorhexidine Gluconate (Peridex 0.12% Liq) 15 ml BID@08,20 MT 10/07/16 20:00 10/25/16 20:23 Levetriacetam 500 mg/Sodium Chloride 105 ml @ 400 mls/hr Q12H IV 10/08/16 06:00 10/26/16 05:58 Bisacodyl (Dulcolax Supp) 10 mg DAILY PRN RECTAL CONSTIPATION 10/07/16 18:30 Ondansetron HCl (Zofran Inj) 4 mg Q6H PRN IV NAUSEA OR VOMITING 10/07/16 18:30 Calcium Gluconate (Calcium Gluconate Inj) 1 gm UNSCH PRN IV SEE LABEL COMMENTS 10/07/16 18:30 10/16/16 10:00 Potassium Chloride 100 ml @ 50 mls/hr UNSCH PRN IV POTASSIUM LESS THAN 4 10/07/16 18:30 10/12/16 06:13 Magnesium Sulfate 4 gm/Sodium Chloride 108 ml @ 108 mls/hr UNSCH PRN IV MAGNESIUM LESS THAN 2 10/07/16 18:30 Acetaminophen (Tylenol) 650 mg Q4H PRN PO TEMP >100.4 10/07/16 18:30 10/12/16 18:15 Dextrose (D50w (Vial) Inj) 50 ml UNSCH PRN IV PUSH HYPOGLYCEMIA - SEE COMMENTS 10/07/16 19:15 Glucagon (Glucagon Inj) 1 mg UNSCH PRN OTHER HYPOGLYCEMIA-SEE COMMENTS 10/07/16 19:15 Propofol 100 ml @ 0 mls/hr TITRATE PRN IV Sedation 10/07/16 23:15 10/26/16 08:36 Nimodipine (Nimotop) 60 mg Q4HR PO 10/13/16 00:00 11/02/16 23:59 10/26/16 11:34 Vasopressin 40 units/Dextrose 100 ml @ 4.5 mls/hr [id number] IV 10/14/16 11:30 10/25/16 02:30 Fentanyl Citrate 250 ml @ 5 mls/hr TITRATE PRN IV SEDATION 10/14/16 15:00 10/26/16 11:03 Heparin Sodium (Porcine) (Heparin Inj) 5,000 units Q8HR SQ 10/14/16 22:00 10/26/16 05:58 Cisatracurium Besylate 100 mg/ Sodium Chloride 260 ml @ 11.24 mls/ hr TITRATE PRN IV TOF 1/4 10/15/16 13:00 10/21/16 12:59 Sodium Chloride (Sodium Chloride) 3 gm TID PO 10/15/16 13:15 10/26/16 11:34 Terbutaline Sulfate (Brethine Inj) 1 mg UNSCH PRN SQ FOR EXTRAVASATION PROTOCOL 10/15/16 15:45 Magnesium Oxide (Mag-Ox) 800 mg UNSCH PRN PO For Magnesium 1.2 - 1.6 mg/dL 10/16/16 09:15 Magnesium Sulfate 4 gm/Sodium Chloride 100 ml @ 50 mls/hr UNSCH PRN IV For Magnesium 0.9 - 1.1 mg/dL 10/16/16 09:15 Magnesium Sulfate 2 gm/Sodium Chloride 100 ml @ 50 mls/hr UNSCH PRN IV For Magnesium 1.2 - 1.6 mg/dL 10/16/16 09:15 Potassium Chloride 100 ml @ 50 mls/hr Q2H PRN IV For Potassium 2.8 - 3.2 mEq/L 10/16/16 09:15 10/16/16 12:22 Potassium Chloride 100 ml @ 50 mls/hr Q2H PRN IV For Potassium 3.3 - 3.5 mEq/L 10/16/16 09:15 Potassium Chloride 100 ml @ 50 mls/hr Q2H PRN IV For Potassium 2.8 - 3.2 mEq/L 10/16/16 09:15 10/26/16 08:36 Potassium Chloride 100 ml @ 25 mls/hr UNSCH PRN IV For Potassium 3.3 - 3.5 mEq/L 10/16/16 09:15 10/24/16 07:13 Potassium Phosphate (K-Phos) 2,000 mg Q4H PRN PO For Phosphorus < 2.5 mg/dL 10/16/16 09:15 Potassium Phosphate (K-Phos) 2,000 mg UNSCH PRN PO/TUBE SEE LABEL COMMENTS 10/16/16 09:15 Potassium Phosphate 30 mmol/ Sodium Chloride 260 ml @ 42 mls/hr UNSCH PRN IV SEE LABEL COMMENTS 10/16/16 09:15 10/24/16 20:39 Sodium Phosphate 30 mmol/Sodium Chloride 250 ml @ 42 mls/hr UNSCH PRN IV For Phosphorus < 2.5 mg/dL 10/16/16 09:15 10/22/16 06:46 Norepinephrine Bitartrate 16 mg/ Sodium Chloride 250 ml @ 1.87 mls/hr TITRATE PRN IV Blood pressure management 10/17/16 10:15 10/20/16 01:07 Phenylephrine HCl 160 mg/Dextrose 500 ml @ 7.5 mls/hr TITRATE PRN IV Blood Pressure Management 10/17/16 10:15 10/23/16 14:21 Epinephrine HCl 8 mg/Dextrose 250 ml @ 5.62 mls/hr TITRATE PRN IV Blood Pressure Management 10/17/16 11:15 10/20/16 15:14 Calcium Gluconate 1 gm/Sodium Chloride 110 ml @ 110 mls/hr UNSCH PRN IV For Protein Corrected Calcium 10/18/16 09:45 10/18/16 10:22 Lansoprazole (Prevacid Odt) 30 mg DAILY NG 10/20/16 09:00 10/26/16 08:35 Sodium Chloride (NS Flush) 2 ml UNSCH PRN IV FLUSH FLUSH AFTER USING IV ACCESS 10/19/16 09:45 Sodium Chloride (NS Flush) 2 ml BID IV FLUSH 10/19/16 21:00 10/25/16 09:00 Artificial Tears (Tears Naturale Opth Soln) 1 drop TID EACH EYE 10/19/16 13:00 10/25/16 16:41 Albuterol Sulfate (Albuterol Neb) 2.5 mg Q2HR NEB PRN INH SOB/WHEEZING 10/19/16 09:45 Miscellaneous Information 1 Q361D XX 10/19/16 09:45 Chlorhexidine Gluconate (Chlorhexidine 2% Cloth) Taper DAILY@04 TOP 10/20/16 04:00 10/16/17 03:59 10/23/16 04:20 Chlorhexidine Gluconate (Chlorhexidine 2% Cloth) 3 pack UNSCH PRN TOP HYGIENIC CARE 10/19/16 09:45 Docusate Sodium (Colace Liq) 100 mg Q12HR PO 10/19/16 21:00 10/25/16 08:29 Sennosides (Senna Liq) 8.8 mg BID PO 10/19/16 21:00 10/25/16 08:30 Polyethylene Glycol (Miralax) 17 gm BID OG-TUBE 10/19/16 21:00 10/22/16 09:26 Lactulose (Lactulose Liq) 30 ml BID OG-TUBE 10/20/16 21:00 10/25/16 08:29 Insulin Aspart (NovoLOG SUPPLEMENTAL SCALE) 1 Q4HR SQ 10/20/16 12:00 10/24/16 20:12 Multivitamins 10 ml/Folic Acid 1 mg/Amino Acids/ Electrolytes/ Dextrose 2,010.2 ml @ 75 mls/hr Q24H IV-CENTRAL 10/20/16 20:00 10/25/16 20:21 Fat Emulsion Intravenous 250 ml @ 10 mls/hr Q24H IV-CENTRAL 10/20/16 20:00 10/25/16 20:25 Diltiazem HCl 125 mg/Sodium Chloride 125 ml @ 5 mls/hr TITRATE PRN IV Tachycardia 10/22/16 10:30 10/26/16 02:40 Milrinone Lactate 20 mg/Sodium Chloride 100 ml @ 13.99 mls/ hr Q7H9M IV 10/22/16 10:23 10/26/16 08:38 Insulin Detemir (Levemir Inj) 12 units Q12HR SQ 10/24/16 09:45 10/26/16 09:00 Furosemide 100 mg/ Sodium Chloride 100 ml @ 5 mls/hr CONTINUOUS IV 10/24/16 12:00 10/25/16 17:21 Hydrocortisone Sodium Succinate (SoluCORTEF INJ) 25 mg Q12H IV PUSH 10/25/16 16:00 10/26/16 04:06 Acetazolamide Sodium (Diamox Inj) 500 mg DAILY IV PUSH 10/25/16 09:00 10/27/16 23:00 10/26/16 08:35 Phenytoin Sodium (Dilantin Inj) 100 mg Q8HR IV 10/25/16 22:00 10/26/16 05:57 (Malinda Hines) Medical Decision Making MDM Remarks 56 y/o male with 1. Subarachnoid hemorrhage, status post coiling posterior communicating artery aneurysm. s/p left decompressive craniectomy Vasospasms, s/p endovascular verapamil infusions 10/13/16, 10/17/16, 10/19/16 2. Possible seizures. Remains on Keppra and Cerebyx 3. Respiratory failure with worsening pneumonia (Malinda Hines) Plan Plan Remarks continue neuro checks and follow up exam cont HHH therapy for vasospasms. Keep SBP around 160-180 cont critical care management daily PT and OT cont Protonix for stress ulcer prophylaxis continue TEDs and SCD's for DVT prophylaxis cont antiepileptic drugs for seizures Dr. Perry dw over the phone, her questions answered (Malinda Hines) Attending Statement The exam, history, and the medical decision-making described in the above note were completed with the assistance of the mid-level provider. I reviewed and agree with the findings presented. I attest that I had a [id number] encounter with the patient on the same day, and personally performed and documented my assessment and findings in the medical record. (George Perry MD) Malinda Hines Oct 26, 2016 13:59 George Perry MD Oct 31, 2016 10:27
[2016-10-26 17:24] LABS: BICARBONATE 32.9 MEQ/L (21.0-32.0); MAGNESIUM 2.4 MG/DL (1.5-2.5); POTASSIUM 3.4 MEQ/L (3.5-5.1)
[2016-10-26] MEDS: FAT EMULSION 20% INJ 250 ML (@10 mls/hr) IV-CENTRAL SCH (20:33)
[2016-10-26] MEDS: CLINIMIX E 4.25/25 2000 mL- >42 mls/hr IV-CENTRAL SCH ×3 (20:35)
[2016-10-27] VITALS (18 sets, daily range): BP systolic 112–130; BP diastolic 56–67; PULSE 83–100; RESP 20; TEMP 98.2–98.9; O2SAT 97–100
[2016-10-27] MEDS: INSULIN ASPART SUPPLEMENTAL SCALE SQ SCH ×6 (00:11→20:00)
[2016-10-27] MEDS: niMODipine 30 MG CAP PO SCH ×6 (00:11→20:26)
[2016-10-27] MEDS: MILRINONE INJ 20 MG in SODIUM CHLORIDE 0.9% INJ 80 ML IV SCH ×3 (00:12→20:00)
[2016-10-27] MEDS: CHLORHEXIDINE GLUCONATE 2 % 1 PACK (2 CLOTHS) TOP SCH (04:00)
[2016-10-27] MEDS: HYDROCORTISONE SOD SUCCINATE 100 MG VIAL IV PUSH SCH (04:14)
[2016-10-27] MEDS: PROPOFOL 1000 MG/100 ML IV PRN ×2 (04:18→17:12)
[2016-10-27] MEDS: fentaNYL DRIP 250 ML IV PRN ×2 (04:19→19:01)
[2016-10-27 05:19] LABS: BICARBONATE 30.6 MEQ/L (21.0-32.0); MAGNESIUM 2.1 MG/DL (1.5-2.5); POTASSIUM 3.1 MEQ/L (3.5-5.1)
[2016-10-27] MEDS: PHENYTOIN INJ 100 MG/2 ML VIAL IV SCH ×3 (05:32→22:05)
[2016-10-27] MEDS: levETIRAcetam INJ 500 MG in SODIUM CHLORIDE 0.9% INJ 100 ML IV SCH ×2 (05:32→17:13)
[2016-10-27] MEDS: HEPARIN SODIUM - SQ 10,000 UNITS/ML VIAL SQ SCH ×3 (05:33→22:05)
[2016-10-27] MEDS: CHLORHEXIDINE 0.12% (ORAL KIT) 15 ML CUP MT SCH ×2 (08:10→20:00)
[2016-10-27] MEDS: LANSOPRAZOLE SOLUTAB 30 MG TAB NG SCH (08:12)
[2016-10-27] MEDS: SODIUM CHLORIDE 1 GRAM TAB PO SCH ×3 (08:12→17:13)
[2016-10-27] MEDS: FUROSEMIDE INJ 100 MG in SODIUM CHLORIDE 0.9% INJ 90 ML IV SCH (08:12)
[2016-10-27] MEDS: DILTIAZEM INJ 125 MG in SODIUM CHLORIDE 0.9% INJ 100 ML IV PRN (08:13)
[2016-10-27] MEDS: DOCUSATE SODIUM 100 MG/10 ML UDC PO SCH ×2 (08:15→20:01)
[2016-10-27] MEDS: POTASSIUM CHLOR 40 MEQ PREMIX 100 ML IV PRN ×2 (08:15→13:26)
[2016-10-27] MEDS: ARTIFICIAL TEARS OPTH SOLN 15 ML BTL EACH EYE SCH ×3 (08:15→17:13)
[2016-10-27] MEDS: SODIUM CHLORIDE 0.9% FLUSH 10 ML FLUSH IV FLUSH SCH ×2 (08:16→20:00)
[2016-10-27] MEDS: LACTULOSE SYRUP 20 GM/30 ML CUP OG-TUBE SCH ×2 (08:17→20:00)
[2016-10-27] MEDS: SENNOSIDES SYRUP 8.8 MG/5 ML CUP PO SCH ×2 (08:17→20:01)
[2016-10-27] MEDS: POLYETHYLENE GLYCOL 17 GM PKG OG-TUBE SCH ×2 (08:17→20:01)
[2016-10-27] MEDS: INSULIN DETEMIR 100 UNITS/ML VIAL SQ SCH ×2 (08:54→22:05)
--- NOTE | 2016-10-27 10:15 | HHI.NSPN ---
(Malinda Hines) Note Status Status: Progress Note (Malinda Hines) Interval History Interval History This is a 56-year-old male brought to the emergency room as an emergency transfer from another institution with history of intracranial bleed. He was transferred from [facility]. Apparently the patient said that patient earlier this morning was coming down the stairs when he started feeling some left-sided weakness and numbness. He called 911 and by the time EMS arrived they detected severe neurological deficits and called a stroke alert. No seizure activity reported. No tongue biting. No incontinence of stool or urine. Patient was taken to [facility]. Apparently he was not able to move his right side . When patient arrived his mental status started to decline and he was intubated emergently in the ER for airway protection. A CT scan of the head showed extensive subarachnoid bleed. In addition he had a sizable subdural hematoma. He was brought emergently on the ventilator. He was on a propofol drip and well sedated. GCS was 3. He was on a Cardene drip and blood pressure was in the 120s. Neurosurgical consultation was requested 10/08. POD #1 Open eyes and follows commands 10/12. Doing very well. Neurologically stable. Patient is in restraints secondary to pulling out his Maldonado multiple times. 10/13. Much more lethargic, difficult to speak with new aphasia 10/14. Improved after angiography. Today he developed new onset of aphasia and right hemiparesis 10/17. Intubated and sedated. Lung infiltrates dense bilaterally, reflected in shunting and problems with oxygenation. 10/18: underwent endovascular verapamil infusion to left MCA vasospasm yesterday. TCD today pending. left flap pak today. Intubated and sedated. continues to be on multiple pressors. on 3% NS. 10/19: currently unstable for travel for repeat CT Head this am. no changes with neuro checks, remains intubated, sedated. pupils equal. continues on multiple pressors support 10/20: intubated and mildly sedated. remains on multiple pressors. pneumonia worsening. TCD this am reports slight increase in flow velocity to left, he underwent cerebral angiography yesterday with endovascular verapamil infusion right ICA. 10/21: intubated, sedated on fentanyl and versed. On Nimbex. 10/25: off Nimbex. Mildly opening eyes today. 10/26: opening eyes more today, ?focusing 10/27: intubated, minimal eye opening. not following commands. (Malinda Hines) Labs, Micro, & Vital Signs Results Date Time Temp Pulse Resp B/P (MAP) Pulse Ox O2 Delivery O2 Flow Rate FiO2 10/27/16 10:00 88 10/27/16 09:40 90 109/58 10/27/16 08:13 90 112/60 10/27/16 08:10 91 108/59 10/27/16 08:00 98.9 92 20 112/58 (76) 100 10/27/16 08:00 35 10/27/16 08:00 92 10/27/16 07:50 99 35 10/27/16 06:00 93 10/27/16 04:03 97 35 10/27/16 04:00 35 10/27/16 04:00 100 10/27/16 04:00 98.8 100 20 127/67 (87) 100 10/27/16 02:00 98 10/27/16 01:26 100 35 10/27/16 00:12 85 134/66 10/27/16 00:00 35 10/27/16 00:00 87 10/27/16 00:00 98.4 87 20 130/65 (86) 100 10/26/16 22:10 95 35 10/26/16 22:00 85 10/26/16 20:00 88 10/26/16 20:00 35 10/26/16 20:00 98.6 88 20 132/66 (88) 100 10/26/16 19:54 95 35 10/26/16 18:00 90 10/26/16 16:00 88 10/26/16 16:00 98.5 86 20 120/62 (81) 100 10/26/16 16:00 35 10/26/16 15:45 94 117/63 10/26/16 15:45 93 119/67 10/26/16 15:37 100 35 10/26/16 14:00 92 10/26/16 12:12 100 45 10/26/16 12:00 92 10/26/16 12:00 35 10/26/16 12:00 98.6 92 20 135/72 (93) 100 10/28/16 07:00 Intake Total 207.5 ml Balance 207.5 ml Constitutional Vital Signs Date Time Temp Pulse Resp B/P (MAP) Pulse Ox O2 Delivery O2 Flow Rate FiO2 10/27/16 10:00 88 10/27/16 09:40 90 109/58 10/27/16 08:13 90 112/60 10/27/16 08:10 91 108/59 10/27/16 08:00 98.9 92 20 112/58 (76) 100 10/27/16 08:00 35 10/27/16 08:00 92 10/27/16 07:50 99 35 10/27/16 06:00 93 10/27/16 04:03 97 35 10/27/16 04:00 35 10/27/16 04:00 100 10/27/16 04:00 98.8 100 20 127/67 (87) 100 10/27/16 02:00 98 10/27/16 01:26 100 35 10/27/16 00:12 85 134/66 10/27/16 00:00 35 10/27/16 00:00 87 10/27/16 00:00 98.4 87 20 130/65 (86) 100 10/26/16 22:10 95 35 10/26/16 22:00 85 10/26/16 20:00 88 10/26/16 20:00 35 10/26/16 20:00 98.6 88 20 132/66 (88) 100 10/26/16 19:54 95 35 10/26/16 18:00 90 10/26/16 16:00 88 10/26/16 16:00 98.5 86 20 120/62 (81) 100 10/26/16 16:00 35 10/26/16 15:45 94 117/63 10/26/16 15:45 93 119/67 10/26/16 15:37 100 35 10/26/16 14:00 92 10/26/16 12:12 100 45 10/26/16 12:00 92 10/26/16 12:00 35 10/26/16 12:00 98.6 92 20 135/72 (93) 100 10/28/16 07:00 Intake Total 207.5 ml Balance 207.5 ml (Malinda Hines) Physical Exam Intubated, very minimal eye opening today. Left flap sunken in. Surgical wound healing well CN: pupils 3-4 mm sluggish to react, conjugate gaze Motor: no spontaneous movements, not following commands to testing there is necrosis to left index distal finger Diffuse extremity swelling. Reflexes: Plantars silent b/l Cerebellar: cannot assess due to clinical condition (Malinda Hines) Medications Current Medications Current Medications Medications (Trade) Dose Ordered Sig/Adali Route PRN Reason Start Time Stop Time Status Last Admin Dose Admin Chlorhexidine Gluconate (Peridex 0.12% Liq) 15 ml BID@08,20 MT 10/07/16 20:00 10/27/16 08:10 Levetriacetam 500 mg/Sodium Chloride 105 ml @ 400 mls/hr Q12H IV 10/08/16 06:00 10/27/16 05:32 Bisacodyl (Dulcolax Supp) 10 mg DAILY PRN RECTAL CONSTIPATION 10/07/16 18:30 Ondansetron HCl (Zofran Inj) 4 mg Q6H PRN IV NAUSEA OR VOMITING 10/07/16 18:30 Calcium Gluconate (Calcium Gluconate Inj) 1 gm UNSCH PRN IV SEE LABEL COMMENTS 10/07/16 18:30 10/16/16 10:00 Potassium Chloride 100 ml @ 50 mls/hr UNSCH PRN IV POTASSIUM LESS THAN 4 10/07/16 18:30 10/12/16 06:13 Magnesium Sulfate 4 gm/Sodium Chloride 108 ml @ 108 mls/hr UNSCH PRN IV MAGNESIUM LESS THAN 2 10/07/16 18:30 Acetaminophen (Tylenol) 650 mg Q4H PRN PO TEMP >100.4 10/07/16 18:30 10/12/16 18:15 Dextrose (D50w (Vial) Inj) 50 ml UNSCH PRN IV PUSH HYPOGLYCEMIA - SEE COMMENTS 10/07/16 19:15 Glucagon (Glucagon Inj) 1 mg UNSCH PRN OTHER HYPOGLYCEMIA-SEE COMMENTS 10/07/16 19:15 Propofol 100 ml @ 0 mls/hr TITRATE PRN IV Sedation 10/07/16 23:15 9/14/17 04:18 Nimodipine (Nimotop) 60 mg Q4HR PO 10/13/16 00:00 11/02/16 23:59 10/27/16 08:17 Vasopressin 40 units/Dextrose 100 ml @ 4.5 mls/hr [id number] IV 10/14/16 11:30 10/25/16 02:30 Fentanyl Citrate 250 ml @ 5 mls/hr TITRATE PRN IV SEDATION 10/14/16 15:00 10/27/16 04:19 Heparin Sodium (Porcine) (Heparin Inj) 5,000 units Q8HR SQ 10/14/16 22:00 10/27/16 05:33 Cisatracurium Besylate 100 mg/ Sodium Chloride 260 ml @ 11.24 mls/ hr TITRATE PRN IV TOF 02/1610/15/16 13:00 10/21/16 12:59 Sodium Chloride (Sodium Chloride) 3 gm TID PO 10/15/16 13:15 10/27/16 08:12 Terbutaline Sulfate (Brethine Inj) 1 mg UNSCH PRN SQ FOR EXTRAVASATION PROTOCOL 10/15/16 15:45 Magnesium Oxide (Mag-Ox) 800 mg UNSCH PRN PO For Magnesium 1.2 - 1.6 mg/dL 10/16/16 09:15 Magnesium Sulfate 4 gm/Sodium Chloride 100 ml @ 50 mls/hr UNSCH PRN IV For Magnesium 0.9 - 1.1 mg/dL 10/16/16 09:15 Magnesium Sulfate 2 gm/Sodium Chloride 100 ml @ 50 mls/hr UNSCH PRN IV For Magnesium 1.2 - 1.6 mg/dL 10/16/16 09:15 Potassium Chloride 100 ml @ 50 mls/hr Q2H PRN IV For Potassium 2.8 - 3.2 mEq/L 10/16/16 09:15 10/16/16 12:22 Potassium Chloride 100 ml @ 50 mls/hr Q2H PRN IV For Potassium 3.3 - 3.5 mEq/L 10/16/16 09:15 Potassium Chloride 100 ml @ 50 mls/hr Q2H PRN IV For Potassium 2.8 - 3.2 mEq/L 10/16/16 09:15 10/27/16 08:15 Potassium Chloride 100 ml @ 25 mls/hr UNSCH PRN IV For Potassium 3.3 - 3.5 mEq/L 10/16/16 09:15 10/26/16 17:40 Potassium Phosphate (K-Phos) 2,000 mg Q4H PRN PO For Phosphorus < 2.5 mg/dL 10/16/16 09:15 Potassium Phosphate (K-Phos) 2,000 mg UNSCH PRN PO/TUBE SEE LABEL COMMENTS 10/16/16 09:15 Potassium Phosphate 30 mmol/ Sodium Chloride 260 ml @ 42 mls/hr UNSCH PRN IV SEE LABEL COMMENTS 10/16/16 09:15 10/24/16 20:39 Sodium Phosphate 30 mmol/Sodium Chloride 250 ml @ 42 mls/hr UNSCH PRN IV For Phosphorus < 2.5 mg/dL 10/16/16 09:15 10/22/16 06:46 Norepinephrine Bitartrate 16 mg/ Sodium Chloride 250 ml @ 1.87 mls/hr TITRATE PRN IV Blood pressure management 10/17/16 10:15 10/20/16 01:07 Phenylephrine HCl 160 mg/Dextrose 500 ml @ 7.5 mls/hr TITRATE PRN IV Blood Pressure Management 10/17/16 10:15 10/23/16 14:21 Epinephrine HCl 8 mg/Dextrose 250 ml @ 5.62 mls/hr TITRATE PRN IV Blood Pressure Management 10/17/16 11:15 10/20/16 15:14 Calcium Gluconate 1 gm/Sodium Chloride 110 ml @ 110 mls/hr UNSCH PRN IV For Protein Corrected Calcium 10/18/16 09:45 10/18/16 10:22 Lansoprazole (Prevacid Odt) 30 mg DAILY NG 10/20/16 09:00 10/27/16 08:12 Sodium Chloride (NS Flush) 2 ml UNSCH PRN IV FLUSH FLUSH AFTER USING IV ACCESS 10/19/16 09:45 Sodium Chloride (NS Flush) 2 ml BID IV FLUSH 10/19/16 21:00 10/26/16 09:00 Artificial Tears (Tears Naturale Opth Soln) 1 drop TID EACH EYE 10/19/16 13:00 10/27/16 08:15 Albuterol Sulfate (Albuterol Neb) 2.5 mg Q2HR NEB PRN INH SOB/WHEEZING 10/19/16 09:45 Miscellaneous Information 1 Q361D XX 10/19/16 09:45 Chlorhexidine Gluconate (Chlorhexidine 2% Cloth) Taper DAILY@04 TOP 10/20/16 04:00 10/16/17 03:59 10/23/16 04:20 Chlorhexidine Gluconate (Chlorhexidine 2% Cloth) 3 pack UNSCH PRN TOP HYGIENIC CARE 10/19/16 09:45 Docusate Sodium (Colace Liq) 100 mg Q12HR PO 10/19/16 21:00 10/27/16 08:15 Sennosides (Senna Liq) 8.8 mg BID PO 10/19/16 21:00 10/26/16 20:36 Polyethylene Glycol (Miralax) 17 gm BID OG-TUBE 10/19/16 21:00 10/26/16 20:36 Lactulose (Lactulose Liq) 30 ml BID OG-TUBE 10/20/16 21:00 10/26/16 20:36 Insulin Aspart (NovoLOG SUPPLEMENTAL SCALE) 1 Q4HR SQ 10/20/16 12:00 10/27/16 00:11 Multivitamins 10 ml/Folic Acid 1 mg/Amino Acids/ Electrolytes/ Dextrose 2,010.2 ml @ 75 mls/hr Q24H IV-CENTRAL 10/20/16 20:00 10/26/16 20:35 Fat Emulsion Intravenous 250 ml @ 10 mls/hr Q24H IV-CENTRAL 10/20/16 20:00 10/26/16 20:33 Diltiazem HCl 125 mg/Sodium Chloride 125 ml @ 5 mls/hr TITRATE PRN IV Tachycardia 10/22/16 10:30 10/27/16 08:13 Milrinone Lactate 20 mg/Sodium Chloride 100 ml @ 9.79 mls/hr [id number] IV 10/22/16 10:23 10/27/16 08:10 Insulin Detemir (Levemir Inj) 12 units Q12HR SQ 10/24/16 09:45 10/27/16 08:54 Acetazolamide Sodium (Diamox Inj) 500 mg DAILY IV PUSH 10/25/16 09:00 10/27/16 23:00 10/27/16 08:15 Phenytoin Sodium (Dilantin Inj) 100 mg Q8HR IV 10/25/16 22:00 10/27/16 05:32 Furosemide (Lasix Inj) 40 mg DAILY IV PUSH 10/28/16 09:00 (Malinda Hines) Medical Decision Making MDM Remarks 56 y/o male with 1. Subarachnoid hemorrhage, status post coiling posterior communicating artery aneurysm. s/p left decompressive craniectomy Vasospasms, s/p endovascular verapamil infusions 10/13/16, 10/17/16, 10/19/16 2. Possible seizures. Remains on Keppra and Cerebyx 3. Respiratory failure with worsening pneumonia (Malinda Hines) Plan Plan Remarks continue neuro checks and follow up exam cont HHH therapy for vasospasms. Keep SBP around 160-180 cont critical care management daily PT and OT cont Protonix for stress ulcer prophylaxis continue TEDs and SCD's for DVT prophylaxis cont antiepileptic drugs for seizures Dr. Perry dw over the phone, her questions answered (Malinda Hines) Attending Statement The exam, history, and the medical decision-making described in the above note were completed with the assistance of the mid-level provider. I reviewed and agree with the findings presented. I attest that I had a [id number] encounter with the patient on the same day, and personally performed and documented my assessment and findings in the medical record. (George Perry MD) Malinda Hines Oct 27, 2016 10:15 George Perry MD Oct 30, 2016 19:19
[2016-10-27] MEDS: VASOPRESSIN INJ 40 UNITS in DEXTROSE 5% IN WATER 100ML INJ 98 ML IV SCH ×2 (10:32)
[2016-10-27] MEDS: FAT EMULSION 20% INJ 250 ML (@10 mls/hr) IV-CENTRAL SCH (20:26)
[2016-10-27] MEDS: CLINIMIX E 4.25/25 2000 mL- >42 mls/hr IV-CENTRAL SCH ×3 (20:26)
[2016-10-28] VITALS (15 sets, daily range): BP systolic 113–140; BP diastolic 56–68; PULSE 66–104; RESP 20–24; TEMP 97.9–98.9; O2SAT 93–100
[2016-10-28] MEDS: niMODipine 30 MG CAP PO SCH ×7 (03:54→23:12)
[2016-10-28] MEDS: CHLORHEXIDINE GLUCONATE 2 % 1 PACK (2 CLOTHS) TOP SCH (04:00)
[2016-10-28] MEDS: INSULIN ASPART SUPPLEMENTAL SCALE SQ SCH ×7 (04:00→23:50)
[2016-10-28] MEDS: PHENYTOIN INJ 100 MG/2 ML VIAL IV SCH ×3 (05:22→21:25)
[2016-10-28] MEDS: levETIRAcetam INJ 500 MG in SODIUM CHLORIDE 0.9% INJ 100 ML IV SCH ×2 (05:22→17:43)
[2016-10-28] MEDS: HEPARIN SODIUM - SQ 10,000 UNITS/ML VIAL SQ SCH ×3 (05:23→21:25)
[2016-10-28 05:50] LABS: BICARBONATE 27.5 MEQ/L (21.0-32.0); MAGNESIUM 2.5 MG/DL (1.5-2.5); POTASSIUM 3.4 MEQ/L (3.5-5.1)
[2016-10-28] MEDS: SODIUM CHLOR 0.9% 1000 ML INJ 1,000 ML IV SCH ×2 (06:40→19:30)
[2016-10-28] MEDS: MILRINONE INJ 20 MG in SODIUM CHLORIDE 0.9% INJ 80 ML IV SCH ×3 (06:56→22:22)
[2016-10-28] MEDS: POTASSIUM CHLOR 40 MEQ PREMIX 100 ML IV PRN ×2 (07:01→23:11)
[2016-10-28] MEDS: DOCUSATE SODIUM 100 MG/10 ML UDC PO SCH ×2 (08:34→21:00)
[2016-10-28] MEDS: PROPOFOL 1000 MG/100 ML IV PRN ×4 (08:34→21:25)
[2016-10-28] MEDS: CHLORHEXIDINE 0.12% (ORAL KIT) 15 ML CUP MT SCH ×2 (08:35→20:00)
[2016-10-28] MEDS: LANSOPRAZOLE SOLUTAB 30 MG TAB NG SCH (08:35)
[2016-10-28] MEDS: SODIUM CHLORIDE 0.9% FLUSH 10 ML FLUSH IV FLUSH SCH ×2 (08:35→20:03)
[2016-10-28] MEDS: FUROSEMIDE 40 MG/4 ML VIAL IV PUSH SCH (08:35)
[2016-10-28] MEDS: SENNOSIDES SYRUP 8.8 MG/5 ML CUP PO SCH ×2 (09:00→21:00)
[2016-10-28] MEDS: POLYETHYLENE GLYCOL 17 GM PKG OG-TUBE SCH ×2 (09:00→21:00)
[2016-10-28] MEDS: ARTIFICIAL TEARS OPTH SOLN 15 ML BTL EACH EYE SCH ×3 (09:00→18:09)
[2016-10-28] MEDS: LACTULOSE SYRUP 20 GM/30 ML CUP OG-TUBE SCH ×2 (09:00→21:00)
[2016-10-28] MEDS: VASOPRESSIN INJ 40 UNITS in DEXTROSE 5% IN WATER 100ML INJ 98 ML IV SCH ×2 (09:00)
[2016-10-28] MEDS: INSULIN DETEMIR 100 UNITS/ML VIAL SQ SCH ×2 (09:23→20:04)
--- NOTE | 2016-10-28 09:35 | HHI.NSPN ---
(Malinda Hines) Note Status Status: Progress Note (Malinda Hines) Interval History Interval History This is a 56-year-old male brought to the emergency room as an emergency transfer from another institution with history of intracranial bleed. He was transferred from [facility] and [facility]. Apparently the patient said that patient earlier this morning was coming down the stairs when he started feeling some left-sided weakness and numbness. He called 911 and by the time EMS arrived they detected severe neurological deficits and called a stroke alert. No seizure activity reported. No tongue biting. No incontinence of stool or urine. Patient was taken to [facility]. Apparently he was not able to move his right side . When patient arrived his mental status started to decline and he was intubated emergently in the ER for airway protection. A CT scan of the head showed extensive subarachnoid bleed. In addition he had a sizable subdural hematoma. He was brought emergently on the ventilator. He was on a propofol drip and well sedated. GCS was 3. He was on a Cardene drip and blood pressure was in the 120s. Neurosurgical consultation was requested 10/08. POD #1 Open eyes and follows commands 10/12. Doing very well. Neurologically stable. Patient is in restraints secondary to pulling out his [place] multiple times. 10/13. Much more lethargic, difficult to speak with new aphasia 10/14. Improved after angiography. Today he developed new onset of aphasia and right hemiparesis 10/17. Intubated and sedated. Lung infiltrates dense bilaterally, reflected in shunting and problems with oxygenation. 10/18: underwent endovascular verapamil infusion to left MCA vasospasm yesterday. TCD today pending. left flap pak today. Intubated and sedated. continues to be on multiple pressors. on 3% NS. 10/19: currently unstable for travel for repeat CT Head this am. no changes with neuro checks, remains intubated, sedated. pupils equal. continues on multiple pressors support 10/20: intubated and mildly sedated. remains on multiple pressors. pneumonia worsening. TCD this am reports slight increase in flow velocity to left, he underwent cerebral angiography yesterday with endovascular verapamil infusion right ICA. 10/21: intubated, sedated on fentanyl and versed. On Nimbex. 10/25: off Nimbex. Mildly opening eyes today. 10/26: opening eyes more today, ?focusing 10/27: intubated, minimal eye opening. not following commands. 10/28: appears more awake, following commands, focusing and tracked. shook head no when asked if doing ok. (Malinda Hines) Labs, Micro, & Vital Signs Results Date Time Temp Pulse Resp B/P (MAP) Pulse Ox O2 Delivery O2 Flow Rate FiO2 10/28/16 08:26 93 35 10/28/16 06:56 76 141/73 10/28/16 06:00 92 10/28/16 04:00 35 10/28/16 04:00 98.6 87 20 125/60 (81) 100 10/28/16 04:00 87 10/28/16 03:01 95 35 10/28/16 00:00 35 10/28/16 00:00 80 10/28/16 00:00 98.6 80 20 113/56 (75) 100 10/27/16 22:00 84 10/27/16 21:26 100 35 10/27/16 20:00 35 10/27/16 20:00 84 10/27/16 20:00 98.5 84 20 114/56 (75) 100 10/27/16 20:00 88 117/59 10/27/16 18:00 85 10/27/16 16:20 100 35 10/27/16 16:00 35 10/27/16 16:00 83 10/27/16 16:00 98.3 83 20 126/63 (84) 100 10/27/16 14:00 86 10/27/16 12:00 35 10/27/16 12:00 87 10/27/16 12:00 98.2 87 20 116/60 (78) 100 10/27/16 11:46 100 35 10/27/16 10:00 88 10/27/16 09:40 90 109/58 10/29/16 07:00 Intake Total 26.1 ml Balance 26.1 ml Constitutional Vital Signs Date Time Temp Pulse Resp B/P (MAP) Pulse Ox O2 Delivery O2 Flow Rate FiO2 10/28/16 08:26 93 35 10/28/16 06:56 76 141/73 10/28/16 06:00 92 10/28/16 04:00 35 10/28/16 04:00 98.6 87 20 125/60 (81) 100 10/28/16 04:00 87 10/28/16 03:01 95 35 10/28/16 00:00 35 10/28/16 00:00 80 10/28/16 00:00 98.6 80 20 113/56 (75) 100 10/27/16 22:00 84 10/27/16 21:26 100 35 10/27/16 20:00 35 10/27/16 20:00 84 10/27/16 20:00 98.5 84 20 114/56 (75) 100 10/27/16 20:00 88 117/59 10/27/16 18:00 85 10/27/16 16:20 100 35 10/27/16 16:00 35 10/27/16 16:00 83 10/27/16 16:00 98.3 83 20 126/63 (84) 100 10/27/16 14:00 86 10/27/16 12:00 35 10/27/16 12:00 87 10/27/16 12:00 98.2 87 20 116/60 (78) 100 10/27/16 11:46 100 35 10/27/16 10:00 88 10/27/16 09:40 90 109/58 10/29/16 07:00 Intake Total 26.1 ml Balance 26.1 ml (Malinda Hines) Physical Exam Intubated, opens eyes, focused and tracked. following simple commands. Left flap sunken in. Surgical wound healing well, no evidence of infection CN: pupils 3-4 mm sluggish to react, mild right ptosis Motor: moved 1-2/5 right upper and b/l lower extremities to commands. no movement to left arm there is necrosis to left index distal finger Diffuse extremity swelling, improving Reflexes: Plantars silent b/l Cerebellar: cannot assess due to clinical condition (Malinda Hines) Medications Current Medications Current Medications Medications (Trade) Dose Ordered Sig/Adali Route PRN Reason Start Time Stop Time Status Last Admin Dose Admin Chlorhexidine Gluconate (Peridex 0.12% Liq) 15 ml BID@08,20 MT 10/07/16 20:00 10/28/16 08:35 Levetriacetam 500 mg/Sodium Chloride 105 ml @ 400 mls/hr Q12H IV 10/08/16 06:00 10/28/16 05:22 Bisacodyl (Dulcolax Supp) 10 mg DAILY PRN RECTAL CONSTIPATION 10/07/16 18:30 Ondansetron HCl (Zofran Inj) 4 mg Q6H PRN IV NAUSEA OR VOMITING 10/07/16 18:30 Calcium Gluconate (Calcium Gluconate Inj) 1 gm UNSCH PRN IV SEE LABEL COMMENTS 10/07/16 18:30 10/16/16 10:00 Potassium Chloride 100 ml @ 50 mls/hr UNSCH PRN IV POTASSIUM LESS THAN 4 10/07/16 18:30 10/12/16 06:13 Magnesium Sulfate 4 gm/Sodium Chloride 108 ml @ 108 mls/hr UNSCH PRN IV MAGNESIUM LESS THAN 2 10/07/16 18:30 Acetaminophen (Tylenol) 650 mg Q4H PRN PO TEMP >100.4 10/07/16 18:30 10/12/16 18:15 Dextrose (D50w (Vial) Inj) 50 ml UNSCH PRN IV PUSH HYPOGLYCEMIA - SEE COMMENTS 10/07/16 19:15 Glucagon (Glucagon Inj) 1 mg UNSCH PRN OTHER HYPOGLYCEMIA-SEE COMMENTS 10/07/16 19:15 Propofol 100 ml @ 0 mls/hr TITRATE PRN IV Sedation 10/07/16 23:15 10/28/16 08:34 Nimodipine (Nimotop) 60 mg Q4HR PO 10/13/16 00:00 11/02/16 23:59 10/28/16 08:34 Vasopressin 40 units/Dextrose 100 ml @ 4.5 mls/hr [id number] IV 10/14/16 11:30 10/25/16 02:30 Fentanyl Citrate 250 ml @ 5 mls/hr TITRATE PRN IV SEDATION 10/14/16 15:00 10/27/16 19:01 Heparin Sodium (Porcine) (Heparin Inj) 5,000 units Q8HR SQ 10/14/16 22:00 10/28/16 05:23 Cisatracurium Besylate 100 mg/ Sodium Chloride 260 ml @ 11.24 mls/ hr TITRATE PRN IV TOF 1/4 10/15/16 13:00 10/21/16 12:59 Sodium Chloride (Sodium Chloride) 3 gm TID PO 10/15/16 13:15 10/27/16 17:13 Terbutaline Sulfate (Brethine Inj) 1 mg UNSCH PRN SQ FOR EXTRAVASATION PROTOCOL 10/15/16 15:45 Magnesium Oxide (Mag-Ox) 800 mg UNSCH PRN PO For Magnesium 1.2 - 1.6 mg/dL 10/16/16 09:15 Magnesium Sulfate 4 gm/Sodium Chloride 100 ml @ 50 mls/hr UNSCH PRN IV For Magnesium 0.9 - 1.1 mg/dL 10/16/16 09:15 Magnesium Sulfate 2 gm/Sodium Chloride 100 ml @ 50 mls/hr UNSCH PRN IV For Magnesium 1.2 - 1.6 mg/dL 10/16/16 09:15 Potassium Chloride 100 ml @ 50 mls/hr Q2H PRN IV For Potassium 2.8 - 3.2 mEq/L 10/16/16 09:15 10/16/16 12:22 Potassium Chloride 100 ml @ 50 mls/hr Q2H PRN IV For Potassium 3.3 - 3.5 mEq/L 10/16/16 09:15 Potassium Chloride 100 ml @ 50 mls/hr Q2H PRN IV For Potassium 2.8 - 3.2 mEq/L 10/16/16 09:15 10/27/16 13:26 Potassium Chloride 100 ml @ 25 mls/hr UNSCH PRN IV For Potassium 3.3 - 3.5 mEq/L 10/16/16 09:15 10/28/16 07:01 Potassium Phosphate (K-Phos) 2,000 mg Q4H PRN PO For Phosphorus < 2.5 mg/dL 10/16/16 09:15 Potassium Phosphate (K-Phos) 2,000 mg UNSCH PRN PO/TUBE SEE LABEL COMMENTS 10/16/16 09:15 Potassium Phosphate 30 mmol/ Sodium Chloride 260 ml @ 42 mls/hr UNSCH PRN IV SEE LABEL COMMENTS 10/16/16 09:15 10/24/16 20:39 Sodium Phosphate 30 mmol/Sodium Chloride 250 ml @ 42 mls/hr UNSCH PRN IV For Phosphorus < 2.5 mg/dL 10/16/16 09:15 10/22/16 06:46 Norepinephrine Bitartrate 16 mg/ Sodium Chloride 250 ml @ 1.87 mls/hr TITRATE PRN IV Blood pressure management 10/17/16 10:15 10/20/16 01:07 Phenylephrine HCl 160 mg/Dextrose 500 ml @ 7.5 mls/hr TITRATE PRN IV Blood Pressure Management 10/17/16 10:15 10/23/16 14:21 Epinephrine HCl 8 mg/Dextrose 250 ml @ 5.62 mls/hr TITRATE PRN IV Blood Pressure Management 10/17/16 11:15 10/20/16 15:14 Calcium Gluconate 1 gm/Sodium Chloride 110 ml @ 110 mls/hr UNSCH PRN IV For Protein Corrected Calcium 10/18/16 09:45 10/18/16 10:22 Lansoprazole (Prevacid Odt) 30 mg DAILY NG 10/20/16 09:00 10/28/16 08:35 Sodium Chloride (NS Flush) 2 ml UNSCH PRN IV FLUSH FLUSH AFTER USING IV ACCESS 10/19/16 09:45 Sodium Chloride (NS Flush) 2 ml BID IV FLUSH 10/19/16 21:00 10/28/16 08:35 Artificial Tears (Tears Naturale Opth Soln) 1 drop TID EACH EYE 10/19/16 13:00 10/28/16 09:00 Albuterol Sulfate (Albuterol Neb) 2.5 mg Q2HR NEB PRN INH SOB/WHEEZING 10/19/16 09:45 Miscellaneous Information 1 [id number] XX 10/19/16 09:45 Chlorhexidine Gluconate (Chlorhexidine 2% Cloth) Taper DAILY@04 TOP 10/20/16 04:00 10/16/17 03:59 10/23/16 04:20 Chlorhexidine Gluconate (Chlorhexidine 2% Cloth) 3 pack UNSCH PRN TOP HYGIENIC CARE 10/19/16 09:45 Docusate Sodium (Colace Liq) 100 mg Q12HR PO 10/19/16 21:00 10/28/16 08:34 Sennosides (Senna Liq) 8.8 mg BID PO 10/19/16 21:00 10/26/16 20:36 Polyethylene Glycol (Miralax) 17 gm BID OG-TUBE 10/19/16 21:00 10/26/16 20:36 Lactulose (Lactulose Liq) 30 ml BID OG-TUBE 10/20/16 21:00 10/26/16 20:36 Insulin Aspart (NovoLOG SUPPLEMENTAL SCALE) 1 Q4HR SQ 10/20/16 12:00 10/27/16 11:57 Multivitamins 10 ml/Folic Acid 1 mg/Amino Acids/ Electrolytes/ Dextrose 2,010.2 ml @ 75 mls/hr Q24H IV-CENTRAL 10/20/16 20:00 10/27/16 20:26 Fat Emulsion Intravenous 250 ml @ 10 mls/hr Q24H IV-CENTRAL 10/20/16 20:00 10/27/16 20:26 Diltiazem HCl 125 mg/Sodium Chloride 125 ml @ 5 mls/hr TITRATE PRN IV Tachycardia 10/22/16 10:30 10/27/16 08:13 Milrinone Lactate 20 mg/Sodium Chloride 100 ml @ 9.79 mls/hr [id number] IV 10/22/16 10:23 10/28/16 06:56 Insulin Detemir (Levemir Inj) 12 units Q12HR SQ 10/24/16 09:45 10/28/16 09:23 Phenytoin Sodium (Dilantin Inj) 100 mg Q8HR IV 10/25/16 22:00 10/28/16 05:22 Furosemide (Lasix Inj) 40 mg DAILY IV PUSH 10/28/16 09:00 10/28/16 08:35 Sodium Chloride 1,000 ml @ 30 mls/hr Q24H IV 10/28/16 05:45 10/28/16 06:40 (Malinda Hines) Medical Decision Making MDM Remarks 56 y/o male with 1. Subarachnoid hemorrhage, status post coiling posterior communicating artery aneurysm. s/p left decompressive craniectomy Vasospasms, s/p endovascular verapamil infusions 10/13/16, 10/17/16, 10/19/16. Neurologically exam improving, more awake and following commands. 2. Possible seizures. Remains on Keppra and Cerebyx 3. Respiratory failure with pneumonia (Malinda Hines) Plan Plan Remarks critical care management daily PT and OT ok with trach and PEG from [facility] standpoint (Malinda Hines) Attending Statement The exam, history, and the medical decision-making described in the above note were completed with the assistance of the mid-level provider. I reviewed and agree with the findings presented. I attest that I had a [id number] encounter with the patient on the same day, and personally performed and documented my assessment and findings in the medical record. (George Perry MD) Malinda Hines Oct 28, 2016 09:35 George Perry MD Oct 30, 2016 19:20
[2016-10-28] MEDS: SODIUM CHLORIDE 1 GRAM TAB PO SCH ×3 (10:39→17:43)
--- NOTE | 2016-10-28 10:59 | HHI.CCPN ---
Subjective Remarks/Hospital Course 10/07: 56-year-old male presents with intracranial bleed. Patient was transferred from [facility] at [facility]. As per the paramedics and the nurse who assisted the patient said that patient earlier this morning was coming down the stairs when he started feeling some left-sided weakness and numbness. He called 911 and by the time EMS arrived they detected some deficit and called a stroke alert. Patient was taken to [facility]. When patient arrived his mental status started to decline and he was intubated emergently in the ER. A CAT scan of the head showed subarachnoid and subdural bleed. He was taking emergently to an angio suite for coiling of the aneurysm and later on to OR for subdural hematoma evacuation. 10/08: Remains sedated, orally intubated on mechanical ventilation. Arouses off sedation and following commands with both upper extremities earlier. Ventriculostomy in place. ICP 7, CPP mid 80s. 10/09: Remains sedated, orally intubated on mechanical ventilation. Arouses off sedation and follows commands with both upper extremities. Ventriculostomy in place. 10/10: Remains sedated, orally intubated on mechanical ventilation. Arouses off sedation and follows commands and both upper extremities. Ventriculostomy in place. ICP 5. Failed C Pap trial yesterday. 10/11: Extubated on 10/10, tolerating well. Awake and alert. Appears confused, moving all 4 extremities. Ventriculostomy discontinued today by neurosurgery 10/13: Patient has developed severe vasospasm at the left MCA territory on TCD's that was treated with IV route verapamil 10/14: patient extubated overnight. was originally following commands and neuro intact. TCDs this morning with increase LIs over yesterday, particularly Left MCA territory. On my evaluation early this morning, patient was aphasic, not moving the right side of his body, not following commands. SBP 140s at that time. net 2L negative/24h and uop almost 1L/hr at the time. I immediately bolused with 2L NS iv, placed arterial and central lines, started phenylephrine , increased SBP to goal 200 - 220 mmHg. called interventional neuroradiology and accompanied patient down personally to IR for IA verapamil again. I remained with the patient managing his hemodynamics down in IR and providing anxiolysis IV. I accompanied patient back up to [facility] where patient again was neuro intact and following commands. Sodium downtrending to 135 and urine studies and serum osms suggestive of urine sodium losses and high uop. added Florinef to mitigate sodium losses, and increased mivf to 500cc/hr to maintain euvolemia. later in the day patient decompensated requiring intubation for hyoxemia, cxr suggestive of pulmonary edema. 2d echo with evidence of EF 40%, septal hypokinesis, moderate MR. On levo, vaso, phenylephrine. difficult to get to goal SBP 200 mmHg, likely due to myocardial dysfunction. decreased goal to 180 - 200 mmHg to balance cardiac vs. neurologic goals. 10/15 Patient was discussed with Dr. Sullivan at shift change. Isuprel was initiated in effort to improve cardiac output as dobutamine not available and concerned with use of milrinone given long half life. Systolic blood pressure was relatively stable with perhaps some modest improvement from 170s to 180s for several hours after initiation. Notified when patient became abruptly hypotensive despite vasopressin, levophed 20 mcg/min, Greyson-Synephrine 300 mcg/m. He was also hypoxemic with sats in 80s despite PCV with PEEP 8 and FiO2 100%, respiratory rate in the 30s. He had decreased breath sounds bilaterally and was concerned for air trapping so removed from mechanical ventilation and bagged without improvement. Placed patient back on mechanical ventilation and provide recruitment maneuvers and increased PEEP to 12 which resulted in improvement of sats to 88% to 92%. Ordered Flolan. Discontinued isuprel and initiated epinephrine. R radial art line would not draw blood . Performed u/s guided femoral artery stick to confirm hypoxemia on ABG given poor wave form on pulse ox and PaO2 was 58. Placed new L radial art line and this resulted in ~ 30 point increase in SBP relative to prior line but patient ultimately on vasopressin, levophed 30 micrograms per minute, Greyson-Synephrine 300 micrograms per minute, epinephrine 12 mcg/min and unable to maintain target pressure (SBP in 150s). Given calcium chloride. patient with shaking movements all extremities, pupils 2mm and sluggish, no eye deviation. Rigors seemed most likely but unable to emergently rule out seizures so loaded with fosphenytoin to avoid secondary injury from seizure activity. WBC increasing and concern for HCAP so pancultured and placed on cefepime, vancomycin, azithromycin. Hydrocortisone 100 mg IV every 8 hours initiated due to concern for septic shock in a patient who has been refractory to all other above measures. Patient is to hemodynamically unstable and hypoxic for transport for neurologic imaging. Urine output has declined to 180-200 ML's per hour. Back off maintenance IV fluids to 200 ML's per hour. Bedside echo demonstrates decreased LV function with normal RV contractility and collapsible IVC suggesting ongoing maintenance fluid administration is appropriate. 10/15 additional visit: continued to deteriorate throughout the day. Seen multiple times. hypoxic on 100% fio2, flolan. required nimbex drip to maintain. repeat bedside critical care ultrasound still demonstrates severe LV dysfunction , decompressed RV, IVC more dilated than previous echo overnight, however still with respiratory variation. femoral arterial line placed with better waveform and higher pressure (likely SVR too high to allow accurate measurement of radial pressure). Pulse contour analysis without stroke volume variation, CI 3.6. SV 52mL. trialed additional albumin without improvement in hemodynamics. uop slower than before, but still significant salt wasting in the urine- sodium dropped to 125 from 132 despite already on 3% nacl infusion and aggressive sodium replacements. forced to give 23% nacl and salt tabs. declining clinically despite maximal therapy. 10/16: continues to be maximally critically ill. LV dysfunction persists. starting to get volume overloaded, but given concern for ongoing cerebral vasospasm, unable to actively diurese patient. sodium wasting persists, but uop downtrending slightly. very hypokalemic today, likely due to steroids. remains intubated, sedated, paralyzed, on flolan. CXR today appears worse with worsening airspace disease. Lactate remains slightly elevated, confirming persistent shock. 10/17: Lung infiltrates dense bilaterally, reflected in shunting and problems with oxygenation. Developed vasospasm on TCDs and required angiogram and intra- arterial verapamil again today. 10/18: SBP 160 - 170 range. FiO2 0.55. BNP > 5000. Not tolerating attempts at maintaining higher BP due to worsening heart failure. Several episodes of vasospasm. Watch daily TCDs closely. Sputum no growth. 10/19: Tmax 99.8. Currently 99. Remains on 4 vasopressors and epoprostenol Subjective 10/20: Yesterday. Returned IR for intra-arterial calcium channel jose infusion for vasospasm. Transcranial Dopplers today Still pending. Remains on significant vasopressor support. 10/21: Good response to diuresis, check BNP. TCDs pending. Heart failure remains a major problem. 10/22: CVP 21 - 22, finger tips blue, digits pale white despite high dose milrinone dilation. Greyson and vaso much reduced. Will try diltiazem gtt for digital ischemia. Urine remains > 200/hr and proximal limbs are well perfused. This digital ischemia appears to be a local phenomenon ala Raynaud's. New subcutaneous emphysema right anterior chest wall. 10/23: Old CVL removed. Fingertips remain marginal, some necrotic despite diltiazem and milrinone treatment for digital ischemia. Cardiac output > 7 liters/min and urine copious, confirming good perfusion pressure and flow. This continues to be a local phenomenon of the digits ala Raynaud's. We are trying to wean vasopressors off but are required to maintaining a cerebral perfusion pressure suitable for the treatment of aneurysmal subarachnoid bleed. Frankly, the importance of brain function eclipses fingertips. 10/24: Afebrile. Well perfused except for index finger left hand, few tips fingers right. Arms and hands warmer with resolving circumferential edema. Diltiazem and milrinone gtt continue. Greyson to 10 mics/min. 10/25: Digits are warm and well perfused except left index and right 4th fingertips; demarcated and not viable. Dry. Diltiazem and milrinone infusions continue to help reverse digital ischemia. 10/26: Forced diuresis continues and BP remains nicely elevated. Hands and digits warm aside from left index and right 4th fingertips which have demarcated. 10/27: Good response to diuretics. Perfusion pressure and documented flow excellent. Continue to wean vent. 10/28: Start SBTs. Fluid balance back toward normal. Objective Vital Signs Date Time Temp Pulse Resp B/P (MAP) Pulse Ox O2 Delivery O2 Flow Rate FiO2 10/28/16 10:00 104 10/28/16 08:26 93 35 10/28/16 08:00 98.1 24 140/68 (92) Intake and Output 10/28/16 10/28/16 10/29/16 08:00 16:00 00:00 Intake Total 1901.1 ml 126.1 ml Output Total 1150 ml Balance 751.1 ml 126.1 ml Result Diagram: 10/28/16 0502 Imaging Last Impressions Chest X-Ray 10/20/16 0000 Signed Impressions: Service Date/Time: October 03:47 - CONCLUSION: 1. Stable tubes and lines. 2. Stable bilateral lower lung zone airspace disease. 3. Stable small right pleural effusion. 4. No significant interval change. Kev Vergara MD Transcranial Doppler Study Complete 10/19/16 0600 Signed Impressions: Service Date/Time: Wednesday, October 19, 2016 08:02 - CONCLUSION: Suspect developing right MCA vasospasm Yosvany Polk MD Liver Ultrasound 10/19/16 0000 Signed Impressions: Service Date/Time: Wednesday, October 19, 2016 11:20 - CONCLUSION: 1. Sludge filled gallbladder with thickened wall. 2. Moderate size bilateral pleural effusions and mild upper abdominal ascites. Santos Vazquez MD Head CT 10/17/16 0000 Signed Impressions: Service Date/Time: Monday, October 17, 2016 15:06 - CONCLUSION: Ventricles are slightly larger without ventriculostomy. Edema in the left hemisphere the brain herniating through the operative site. Remington Woodward MD FACR Cerebral Arteriogram 10/17/16 0000 Signed Impressions: Service Date/Time: Monday, October 17, 2016 00:00 - CONCLUSION: 1. Uncompensated spasmolysis of the left middle cerebral artery Havrey Morejon MD Infusion Non-thrombolysis 10/14/16 1103 Signed Impressions: Service Date/Time: Friday, October 14, 2016 10:21 - CONCLUSION: 1. Uncomplicated infusion for spasmolysis Harvey Morejon MD Neck CTA 10/07/16 0000 Signed Impressions: Service Date/Time: Friday, October 07, 2016 15:03 - CONCLUSION: 1. Mild carotid bulb atherosclerotic calcification bilaterally. However, no significant stenosis is present in either internal carotid artery. 2. Paranasal sinus mucoperiosteal thickening. 3. Please refer to brain CTA report for description of the intracranial findings. Yosvany Ramirez MD Head CTA 10/07/16 0000 Signed Impressions: Service Date/Time: Friday, October 07, 2016 15:03 - CONCLUSION: 1. 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 2. Large left subdural hematoma measuring 1.3 cm in depth with a significant, 1.6 cm left to right subfalcine shift. Joni Shelton MD Objective Remarks GENERAL: 56-year-old male, currently sedated and orotracheally intubated/critically ill HEAD: Status post left craniectomy. Incision is clean dry and intact EYES: About 3 mm bilaterally and reactive NECK: Supple, trachea midline. orotracheal tube in place. CARDIOVASCULAR: Tachycardic, RR. S1, S2. No S4. 2/6 murmur left lower sternal border RESPIRATORY: Diminished breath sounds bilateral lower lobes. Scattered rhonchi throughout, less so. GASTROINTESTINAL: Abdomen soft, non-tender, nondistended. Hypoactive bowel sounds are appreciated MUSCULOSKELETAL: Ischemic changes to left index finger tip and right 4th fingertip, skin marginal at best. Other digits have remained warm and well perfused. Arms and legs warm, toes all well-perfused. NEURO EXAM: RASS -5. Procedures 10/13 Four-vessel cerebral angiography with verapamil treatment of vasospasm Date of Insertion: Oct 14, 2016 Line: Central Venous Catheter Side: Right Location: Subclavian A/P Assessment and Plan Neuro/Psych Status post left frontotemporal parietal craniectomy 10/08 for evacuation subdural hematoma/duraplasty Left subdural hematoma - 1.3 cm with 1.6 shift left to right Subarachnoid hemorrhage contents 5, Carroll grade 4 - left P-comm status post 4 coiling 10/08 - TCD's daily: 10/19 - vasospasm -intra-arterial verapamil - Nimodipine 60 mg every 4 hours for vasospasm to complete 21 days. Initiated - Levetiracetam 500 mg IV twice a day for seizure prophylaxis - 10/13 and 10/14 and 10/17) 10/19 left MCA territory vasospasm, status post successful verapamil treatment by IR with 20 mg verapamil - SBP goal 180 - 220 mmHg, although only able to press to 160 on maximal therapy given cardiac dysfunction. - check phenytoin level -> 7. - 10/17 CT brain - less hemisphere edema with herniation through left craniotomy site and CT brain for today - Dr. Perry/neurosurgery - Currently on midazolam 4 mg an hour and fentanyl drip at 150 an hour - 10/21 stopped cisatracurium drip at 4 g per kilo per minute titrate to maintain [id number] 2 out of 4 Respiratory: Acute hypoxic Respiratory failure-ARDS Noncardiogenic/neurogenic pulmonary edema - pulmonary edema, may be non-cardiogenic/neurogenic from SAH/vasospasm. cannot diurese due to active cerebral vasospasm. - [facility] /[birth year] - Ventilator bundle - Albuterol/age-appropriate versus every 6 hours with albuterol aerosols every 2 hours. Dyspnea - Epoprostenol 50 ng/kg/min aerosolized continue - Currently not appropriate for prone therapy due to subarachnoid hemorrhage/ cardiac dysfunction - Follow-up ABG/chest x-ray in a.m. - Reduce PEEP to 10 -> 5 --Start SBTs Cardiovascular: Severe shock - septic and cardiogenic Severe LV dysfunction secondary to SAH Elevated troponin- secondary to SAH, unlikely to be ACS. Pulmonary hypertension -Currently on phenylephrine at 300 g per minute /norepinephrine 18 micrograms a minute, vasopressin 0.04 units a minute, epinephrine at 20 micrograms a minute to maintain to start blood pressure greater than 150 Continue stress dose hydrocortisone 100 mg IV every 8 hours - On milrinone 0.5 mics per kilogram per minute - goal euvolemia. +3 L. Will give low-dose diuretic today Currently off maintenance IV fluids Maximize concentration of all vasopressors - troponin elevation peak 4.71 likely secondary to his cardiac dysfunction secondary to SAH. unlikely to be ACS, and at this point unable to evaluate or intervene on coronary ischemia given how critically ill he is. Echocardiogram 10/14/16 revealed EF 40-45%. Septal hypokinesis. Moderate MR. Severe pulmonary hypertension with pulmonary artery pressures estimated 61 mmHg Cardiac CO 6.2 SVV 10. Renal: Cerebral Salt Wasting/SIADH - q1h uop -- Strict I/Os - BNP > 5000 on 10/18 See below. Creatinine currently within normal limits Resolved FEN/GI: Severe hyponatremia Hypokalemia Elevated transaminases Hyperammonia -Currently on sodium chloride 3gm po TID - 3% NaCl 30cc/hr. - serial sodiums every 6 hours - ICU electrolyte protocol - aggressively replace potassium losses. - NPO while in shock. Will start TPN today - Lansoprazole 30 mg by tube daily for GI prophylaxis -Docusate sodium 100 mg twice a day, senna liquid 8.6 mg twice a day and polyethylene glycol 3350 17 g twice a day for bowel regimen Start lactulose 30 cc twice a day. Check ammonia level in a.m. Check liver ultrasound. Recheck LFTs in a.m. Likely secondary to hypoperfusion /shock Heme/ID: Septic Shock Possible HCAP -10/18 d/c empiric abx: vancomycin, cefepime, azithromycin. Will antonio culture again today and restart antibiotics with vancomycin, piperacillin/tazobactam on 10/19 Digital Ischemia with necrosis - Local phenomenon. CO always hyperdynamic range, urine copious. - Diltiazem and milrinone infusions continuous for 6 days now. Pertinent cultures 10/15 - blood cultures - 1 out of 4 anaerobic gram-negative cocci possibly Veillonella 10/15 - sputum - beta strep not A, strep species 10/19 - urine - pending 10/19 - sputum - pending -> NG Endocrine: Presumed Adrenal Insufficiency -Discontinued fludrocortisone 10/18. Monitor sodium 6 hours. - Current hydrocortisone 100 mg every 8 hours. Sliding-scale insulin with Novulog -Accu-Cheks every 4 hours to maintain euglycemia Pender protocol. Add levemir bid. Taper off cortisone -> done Prophylaxis: GI Prophylaxis - lansoprazole DVT Prophylaxis-- SCDs, heparin subcutaneous Lines: - 10/14 right SC TLC, removed 10/22 - 10/14 right radial art line, removed 10/14 - 10/15 left radial art line, removed 10/16 - 10/15 left femoral art line - 10/22 left groin triple lumen placed - Maldonado Overall impression: Remains critically ill with vasospasm following spontaneous subarachnoid hemorrhage. Digital ischemia has improved. Milrinone improved CO but ischemia to two fingertips persists. BNP 777 today consistent with acute on chronic heart failure. Milrinone to 0.75. Urine output continues to confirm good renal perfusion, CVP confirms good preload. He will lose fingertips due to heart failure and local digital vasospasm. Staph on blood - ? possible embolic debris, but most likely a contaminant in light of organism. Aside from demarcated fingers he is warm and well perfused. Will slowly decrease diltiazem and milrinone. Start SBTs. Rodriguez Collazo MD Oct 28, 2016 10:58
[2016-10-28] MEDS: fentaNYL DRIP 250 ML IV PRN ×2 (11:07→23:12)
[2016-10-28] MEDS ORDERED: DEXTROSE 50% IN WATER 50 ML SYRINGE ONE (17:41)
[2016-10-28] MEDS: DEXTROSE 50% IN WATER 50 ML VIAL(D50) IV PUSH PRN (17:42)
[2016-10-28] MEDS: CLINIMIX E 4.25/25 2000 mL- >42 mls/hr IV-CENTRAL SCH ×3 (20:01)
[2016-10-28] MEDS: FAT EMULSION 20% INJ 250 ML (@10 mls/hr) IV-CENTRAL SCH (20:03)
[2016-10-28 21:32] LABS: MAGNESIUM 2.2 MG/DL (1.5-2.5); POTASSIUM 3.3 MEQ/L (3.5-5.1)
[2016-10-29] VITALS (18 sets, daily range): BP systolic 121–146; BP diastolic 60–76; PULSE 88–115; RESP 19–23; TEMP 98.3–99.5; O2SAT 96–100
[2016-10-29] MEDS: CHLORHEXIDINE GLUCONATE 2 % 1 PACK (2 CLOTHS) TOP SCH (04:00)
[2016-10-29] MEDS: INSULIN ASPART SUPPLEMENTAL SCALE SQ SCH ×5 (04:00→19:58)
[2016-10-29] MEDS: niMODipine 30 MG CAP PO SCH ×6 (04:00→23:06)
[2016-10-29] MEDS: PROPOFOL 1000 MG/100 ML IV PRN ×3 (05:00→23:06)
[2016-10-29] MEDS: HEPARIN SODIUM - SQ 10,000 UNITS/ML VIAL SQ SCH ×3 (05:01→21:09)
[2016-10-29] MEDS: levETIRAcetam INJ 500 MG in SODIUM CHLORIDE 0.9% INJ 100 ML IV SCH ×2 (05:01→17:35)
[2016-10-29] MEDS: PHENYTOIN INJ 100 MG/2 ML VIAL IV SCH ×3 (05:02→21:09)
[2016-10-29] MEDS: MILRINONE INJ 20 MG in SODIUM CHLORIDE 0.9% INJ 80 ML IV SCH ×2 (05:13→18:00)
[2016-10-29] MEDS: VASOPRESSIN INJ 40 UNITS in DEXTROSE 5% IN WATER 100ML INJ 98 ML IV SCH ×2 (07:14)
[2016-10-29 07:48] LABS: BICARBONATE 26.8 MEQ/L (21.0-32.0); POTASSIUM 3.7 MEQ/L (3.5-5.1)
--- NOTE | 2016-10-29 08:13 | HHI.NSPN ---
(Luis Espinosa) History Chief Complaint: Unable to obtain due to patient's clinical condition. (Luis Espinosa) Interval History This is a 56-year-old male brought to the emergency room as an emergency transfer from another institution with history of intracranial bleed. He was transferred from [facility] and [facility]. Apparently the patient said that patient earlier this morning was coming down the stairs when he started feeling some left-sided weakness and numbness. He called 911 and by the time EMS arrived they detected severe neurological deficits and called a stroke alert. No seizure activity reported. No tongue biting. No incontinence of stool or urine. Patient was taken to [facility]. Apparently he was not able to move his right side . When patient arrived his mental status started to decline and he was intubated emergently in the ER for airway protection. A CT scan of the head showed extensive subarachnoid bleed. In addition he had a sizable subdural hematoma. He was brought emergently on the ventilator. He was on a propofol drip and well sedated. GCS was 3. He was on a Cardene drip and blood pressure was in the 120s. Neurosurgical consultation was requested 10/08. POD #1 Open eyes and follows commands 10/09/16 POD #2: Pt sedated on Diprivan. Intubated. When held pt opens eyes and follows commands. Pupils 3mm bilaterally reactive briskly bilaterally. 10/24/16: Pt intubated and sedated on versed and Fentanyl drips. Pupils 3mm bilaterally. 10/25: off Nimbex. Mildly opening eyes today. 10/26: opening eyes more today, ?focusing 10/27: intubated, minimal eye opening. not following commands. 10/28: appears more awake, following commands, focusing and tracked. shook head no when asked if doing ok. 10/29: Patient intubated. He opens his eyes slightly to pain. He is sedated on Diprivan and fentanyl drips. Not following commands for me but he is sedated. (Luis Espinosa) System Review Comments Not able to obtain given his clinical condition. (Luis Espinosa) Exam Results Vital Signs Date Time Temp Pulse Resp B/P (MAP) Pulse Ox O2 Delivery O2 Flow Rate FiO2 10/29/16 07:45 35 10/29/16 07:45 100 Ventilator 10/29/16 06:00 90 10/29/16 05:13 131/63 10/29/16 04:00 98.3 23 Intake and Output 10/29/16 10/29/16 10/30/16 08:00 16:00 00:00 Intake Total 2300 ml Output Total 1350 ml Balance 950 ml (Luis Espinosa) Physical Examination Respiratory: Intubated, PRVC A/C rate 20. Peep 5 FiO2 35% Heart: NSR no murmurs Abd: Soft positive bs Skin: Craniectomy site healing without signs of infection. Craniectomy site is depressed. Muscle: Not following commands for muscle testing he is sedated on Diprivan and Fentanyl drips. Neuro: Patient is sedated on Diprivan and fentanyl drips. Pupils 3 mm bilaterally. Not following commands. He opens eyes slightly to pain. (Luis Espinosa) Lab, Micro, Other Results Last Impressions Chest X-Ray 10/22/16 0000 Signed Impressions: Service Date/Time: Saturday, October 22, 2016 13:54 - CONCLUSION: No significant change. No evidence of pneumothorax. Paddy Pineda MD Abdomen X-Ray 10/21/16 0600 Signed Impressions: Service Date/Time: Friday, October 21, 2016 03:50 - CONCLUSION: 1. NGT in the stomach. 2. General paucity of small bowel gas. This finding is nonspecific and occasionally may reflect fluid-filled loops of bowel. Otherwise, no dilated bowel loops to suggest significant ileus or obstruction. Kev Vergara MD Transcranial Doppler Study Complete 10/20/16 0600 Signed Impressions: Service Date/Time: October 07:54 - CONCLUSION: Slight interval elevation of flow velocity measurements and ratio on the left Yosvany Polk MD Liver Ultrasound 10/19/16 0000 Signed Impressions: Service Date/Time: Wednesday, October 19, 2016 11:20 - CONCLUSION: 1. Sludge filled gallbladder with thickened wall. 2. Moderate size bilateral pleural effusions and mild upper abdominal ascites. Santos Vazuqez MD Cerebral Arteriogram 10/19/16 0000 Signed Impressions: Service Date/Time: Wednesday, October 19, 2016 12:47 - CONCLUSION: Uncomplicated cerebral arteriography with spasmolytic therapy as described in detail above. Yosvany Polk MD Head CT 10/17/16 0000 Signed Impressions: Service Date/Time: Monday, October 17, 2016 15:06 - CONCLUSION: Ventricles are slightly larger without ventriculostomy. Edema in the left hemisphere the brain herniating through the operative site. Remington Woodward MD FACR Infusion Non-thrombolysis 10/14/16 1103 Signed Impressions: Service Date/Time: Friday, October 14, 2016 10:21 - CONCLUSION: 1. Uncomplicated infusion for spasmolysis Harvey Morejon MD Neck CTA 10/07/16 0000 Signed Impressions: Service Date/Time: Friday, October 07, 2016 15:03 - CONCLUSION: 1. Mild carotid bulb atherosclerotic calcification bilaterally. However, no significant stenosis is present in either internal carotid artery. 2. Paranasal sinus mucoperiosteal thickening. 3. Please refer to brain CTA report for description of the intracranial findings. Yosvany Ramirez MD Head CTA 10/07/16 0000 Signed Impressions: Service Date/Time: Friday, October 07, 2016 15:03 - CONCLUSION: 1. 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 2. Large left subdural hematoma measuring 1.3 cm in depth with a significant, 1.6 cm left to right subfalcine shift. Joni Shelton MD Laboratory Tests Test 10/28/16 19:25 10/29/16 05:37 Blood Urea Nitrogen 19 MG/DL 18 MG/DL Creatinine 0.44 MG/DL 0.45 MG/DL Random Glucose 83 MG/DL 141 MG/DL Calcium Level 8.1 MG/DL 7.8 MG/DL Phosphorus Level 2.9 MG/DL Magnesium Level 2.2 MG/DL Sodium Level 146 MEQ/L 145 MEQ/L Potassium Level 3.3 MEQ/L 3.7 MEQ/L Chloride Level 113 MEQ/L 113 MEQ/L Carbon Dioxide Level 26.0 MEQ/L 26.8 MEQ/L Anion Gap 7 MEQ/L 5 MEQ/L Estimat Glomerular Filtration Rate 201 ML/MIN 196 ML/MIN (Luis Espinosa) Medical Decision Making Impression and Plan A: 56 y/o M s/p left frontotemporal parietal decompressive craniectomy. Improved on follow up CT. P: Continue to monitor Neuro exam. Continue with current care Continue Protonix for stress ulcer prophylaxis Continue Colt hose and SCD's for DVT prophylaxis Neurosurgically stable for trach/peg per Dr. Perry. (Luis Espinosa) Attending Statement The exam, history, and the medical decision-making described in the above note were completed with the assistance of the mid-level provider. I reviewed and agree with the findings presented. I attest that I had a [id number] encounter with the patient on the same day, and personally performed and documented my assessment and findings in the medical record. (Terrance Arguelles MD) Luis Espinosa Oct 29, 2016 08:13 Terrance Arguelles MD Oct 29, 2016 14:15
[2016-10-29] MEDS: SODIUM CHLORIDE 1 GRAM TAB PO SCH ×3 (08:24→17:35)
[2016-10-29] MEDS: LANSOPRAZOLE SOLUTAB 30 MG TAB NG SCH (08:25)
[2016-10-29] MEDS: FUROSEMIDE 40 MG/4 ML VIAL IV PUSH SCH (08:25)
[2016-10-29] MEDS: ARTIFICIAL TEARS OPTH SOLN 15 ML BTL EACH EYE SCH ×3 (08:26→17:36)
[2016-10-29] MEDS: SODIUM CHLORIDE 0.9% FLUSH 10 ML FLUSH IV FLUSH SCH ×2 (08:26→19:58)
[2016-10-29] MEDS: CHLORHEXIDINE 0.12% (ORAL KIT) 15 ML CUP MT SCH ×2 (08:26→19:57)
[2016-10-29] MEDS: LACTULOSE SYRUP 20 GM/30 ML CUP OG-TUBE SCH ×2 (08:27→20:15)
[2016-10-29] MEDS: DOCUSATE SODIUM 100 MG/10 ML UDC PO SCH ×2 (08:27→20:15)
[2016-10-29] MEDS: POLYETHYLENE GLYCOL 17 GM PKG OG-TUBE SCH ×2 (08:27→20:15)
[2016-10-29] MEDS: SENNOSIDES SYRUP 8.8 MG/5 ML CUP PO SCH ×2 (08:27→20:15)
[2016-10-29] MEDS: INSULIN DETEMIR 100 UNITS/ML VIAL SQ SCH ×2 (08:28→21:00)
--- NOTE | 2016-10-29 11:45 | HHI.CCPN ---
Subjective Remarks/Hospital Course 10/07: 56-year-old male presents with intracranial bleed. Patient was transferred from [facility] at [facility]. As per the paramedics and the nurse who assisted the patient said that patient earlier this morning was coming down the stairs when he started feeling some left-sided weakness and numbness. He called 911 and by the time EMS arrived they detected some deficit and called a stroke alert. Patient was taken to [facility]. When patient arrived his mental status started to decline and he was intubated emergently in the ER. A CAT scan of the head showed subarachnoid and subdural bleed. He was taking emergently to an angio suite for coiling of the aneurysm and later on to OR for subdural hematoma evacuation. 10/08: Remains sedated, orally intubated on mechanical ventilation. Arouses off sedation and following commands with both upper extremities earlier. Ventriculostomy in place. ICP 7, CPP mid 80s. 10/09: Remains sedated, orally intubated on mechanical ventilation. Arouses off sedation and follows commands with both upper extremities. Ventriculostomy in place. 10/10: Remains sedated, orally intubated on mechanical ventilation. Arouses off sedation and follows commands and both upper extremities. Ventriculostomy in place. ICP 5. Failed C Pap trial yesterday. 10/11: Extubated on 10/10, tolerating well. Awake and alert. Appears confused, moving all 4 extremities. Ventriculostomy discontinued today by neurosurgery 10/13: Patient has developed severe vasospasm at the left MCA territory on TCD's that was treated with IV route verapamil 10/14: patient extubated overnight. was originally following commands and neuro intact. TCDs this morning with increase LIs over yesterday, particularly Left MCA territory. On my evaluation early this morning, patient was aphasic, not moving the right side of his body, not following commands. SBP 140s at that time. net 2L negative/24h and uop almost 1L/hr at the time. I immediately bolused with 2L NS iv, placed arterial and central lines, started phenylephrine , increased SBP to goal 200 - 220 mmHg. called interventional neuroradiology and accompanied patient down personally to IR for IA verapamil again. I remained with the patient managing his hemodynamics down in IR and providing anxiolysis IV. I accompanied patient back up to [facility] where patient again was neuro intact and following commands. Sodium downtrending to 135 and urine studies and serum osms suggestive of urine sodium losses and high uop. added Florinef to mitigate sodium losses, and increased mivf to 500cc/hr to maintain euvolemia. later in the day patient decompensated requiring intubation for hyoxemia, cxr suggestive of pulmonary edema. 2d echo with evidence of EF 40%, septal hypokinesis, moderate MR. On levo, vaso, phenylephrine. difficult to get to goal SBP 200 mmHg, likely due to myocardial dysfunction. decreased goal to 180 - 200 mmHg to balance cardiac vs. neurologic goals. 10/15 Patient was discussed with Dr. Sullivan at shift change. Isuprel was initiated in effort to improve cardiac output as dobutamine not available and concerned with use of milrinone given long half life. Systolic blood pressure was relatively stable with perhaps some modest improvement from 170s to 180s for several hours after initiation. Notified when patient became abruptly hypotensive despite vasopressin, levophed 20 mcg/min, Greyson-Synephrine 300 mcg/m. He was also hypoxemic with sats in 80s despite PCV with PEEP 8 and FiO2 100%, respiratory rate in the 30s. He had decreased breath sounds bilaterally and was concerned for air trapping so removed from mechanical ventilation and bagged without improvement. Placed patient back on mechanical ventilation and provide recruitment maneuvers and increased PEEP to 12 which resulted in improvement of sats to 88% to 92%. Ordered Flolan. Discontinued isuprel and initiated epinephrine. R radial art line would not draw blood . Performed u/s guided femoral artery stick to confirm hypoxemia on ABG given poor wave form on pulse ox and PaO2 was 58. Placed new L radial art line and this resulted in ~ 30 point increase in SBP relative to prior line but patient ultimately on vasopressin, levophed 30 micrograms per minute, Greyson-Synephrine 300 micrograms per minute, epinephrine 12 mcg/min and unable to maintain target pressure (SBP in 150s). Given calcium chloride. patient with shaking movements all extremities, pupils 2mm and sluggish, no eye deviation. Rigors seemed most likely but unable to emergently rule out seizures so loaded with fosphenytoin to avoid secondary injury from seizure activity. WBC increasing and concern for HCAP so pancultured and placed on cefepime, vancomycin, azithromycin. Hydrocortisone 100 mg IV every 8 hours initiated due to concern for septic shock in a patient who has been refractory to all other above measures. Patient is to hemodynamically unstable and hypoxic for transport for neurologic imaging. Urine output has declined to 180-200 ML's per hour. Back off maintenance IV fluids to 200 ML's per hour. Bedside echo demonstrates decreased LV function with normal RV contractility and collapsible IVC suggesting ongoing maintenance fluid administration is appropriate. 10/15 additional visit: continued to deteriorate throughout the day. Seen multiple times. hypoxic on 100% fio2, flolan. required nimbex drip to maintain. repeat bedside critical care ultrasound still demonstrates severe LV dysfunction , decompressed RV, IVC more dilated than previous echo overnight, however still with respiratory variation. femoral arterial line placed with better waveform and higher pressure (likely SVR too high to allow accurate measurement of radial pressure). Pulse contour analysis without stroke volume variation, CI 3.6. SV 52mL. trialed additional albumin without improvement in hemodynamics. uop slower than before, but still significant salt wasting in the urine- sodium dropped to 125 from 132 despite already on 3% nacl infusion and aggressive sodium replacements. forced to give 23% nacl and salt tabs. declining clinically despite maximal therapy. 10/16: continues to be maximally critically ill. LV dysfunction persists. starting to get volume overloaded, but given concern for ongoing cerebral vasospasm, unable to actively diurese patient. sodium wasting persists, but uop downtrending slightly. very hypokalemic today, likely due to steroids. remains intubated, sedated, paralyzed, on flolan. CXR today appears worse with worsening airspace disease. Lactate remains slightly elevated, confirming persistent shock. 10/17: Lung infiltrates dense bilaterally, reflected in shunting and problems with oxygenation. Developed vasospasm on TCDs and required angiogram and intra- arterial verapamil again today. 10/18: SBP 160 - 170 range. FiO2 0.55. BNP > 5000. Not tolerating attempts at maintaining higher BP due to worsening heart failure. Several episodes of vasospasm. Watch daily TCDs closely. Sputum no growth. 10/19: Tmax 99.8. Currently 99. Remains on 4 vasopressors and epoprostenol Subjective 10/20: Yesterday. Returned IR for intra-arterial calcium channel jose infusion for vasospasm. Transcranial Dopplers today Still pending. Remains on significant vasopressor support. 10/21: Good response to diuresis, check BNP. TCDs pending. Heart failure remains a major problem. 10/22: CVP 21 - 22, finger tips blue, digits pale white despite high dose milrinone dilation. Greyson and vaso much reduced. Will try diltiazem gtt for digital ischemia. Urine remains > 200/hr and proximal limbs are well perfused. This digital ischemia appears to be a local phenomenon ala Raynaud's. New subcutaneous emphysema right anterior chest wall. 10/23: Old CVL removed. Fingertips remain marginal, some necrotic despite diltiazem and milrinone treatment for digital ischemia. Cardiac output > 7 liters/min and urine copious, confirming good perfusion pressure and flow. This continues to be a local phenomenon of the digits ala Raynaud's. We are trying to wean vasopressors off but are required to maintaining a cerebral perfusion pressure suitable for the treatment of aneurysmal subarachnoid bleed. Frankly, the importance of brain function eclipses fingertips. 10/24: Afebrile. Well perfused except for index finger left hand, few tips fingers right. Arms and hands warmer with resolving circumferential edema. Diltiazem and milrinone gtt continue. Greyson to 10 mics/min. 10/25: Digits are warm and well perfused except left index and right 4th fingertips; demarcated and not viable. Dry. Diltiazem and milrinone infusions continue to help reverse digital ischemia. 10/26: Forced diuresis continues and BP remains nicely elevated. Hands and digits warm aside from left index and right 4th fingertips which have demarcated. 10/27: Good response to diuretics. Perfusion pressure and documented flow excellent. Continue to wean vent. 10/28: Start SBTs. Fluid balance back toward normal. 10/29: Tolerating SBTs. Lowering sedation. Edema resolving. Objective Vital Signs Date Time Temp Pulse Resp B/P (MAP) Pulse Ox O2 Delivery O2 Flow Rate FiO2 10/29/16 10:00 105 10/29/16 08:00 35 10/29/16 08:00 98.4 23 146/72 (96) 100 10/29/16 07:45 Ventilator Intake and Output 10/29/16 10/29/16 10/30/16 08:00 16:00 00:00 Intake Total 2300 ml Output Total 1350 ml Balance 950 ml Result Diagram: 10/29/16 0537 Imaging Last Impressions Chest X-Ray 10/20/16 0000 Signed Impressions: Service Date/Time: October 03:47 - CONCLUSION: 1. Stable tubes and lines. 2. Stable bilateral lower lung zone airspace disease. 3. Stable small right pleural effusion. 4. No significant interval change. Kev Vergara MD Transcranial Doppler Study Complete 10/19/16 0600 Signed Impressions: Service Date/Time: Wednesday, October 19, 2016 08:02 - CONCLUSION: Suspect developing right MCA vasospasm Yosvany Polk MD Liver Ultrasound 10/19/16 0000 Signed Impressions: Service Date/Time: Wednesday, October 19, 2016 11:20 - CONCLUSION: 1. Sludge filled gallbladder with thickened wall. 2. Moderate size bilateral pleural effusions and mild upper abdominal ascites. Santos Vazquez MD Head CT 10/17/16 0000 Signed Impressions: Service Date/Time: Monday, October 17, 2016 15:06 - CONCLUSION: Ventricles are slightly larger without ventriculostomy. Edema in the left hemisphere the brain herniating through the operative site. Remington Woodward MD FACR Cerebral Arteriogram 10/17/16 0000 Signed Impressions: Service Date/Time: Monday, October 17, 2016 00:00 - CONCLUSION: 1. Uncompensated spasmolysis of the left middle cerebral artery Harvey Morejon MD Infusion Non-thrombolysis 10/14/16 1103 Signed Impressions: Service Date/Time: Friday, October 14, 2016 10:21 - CONCLUSION: 1. Uncomplicated infusion for spasmolysis Harvey Morejon MD Neck CTA 10/07/16 0000 Signed Impressions: Service Date/Time: Friday, October 07, 2016 15:03 - CONCLUSION: 1. Mild carotid bulb atherosclerotic calcification bilaterally. However, no significant stenosis is present in either internal carotid artery. 2. Paranasal sinus mucoperiosteal thickening. 3. Please refer to brain CTA report for description of the intracranial findings. Yosvany Ramirez MD Head CTA 10/07/16 0000 Signed Impressions: Service Date/Time: Friday, October 07, 2016 15:03 - CONCLUSION: 1. 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 2. Large left subdural hematoma measuring 1.3 cm in depth with a significant, 1.6 cm left to right subfalcine shift. Joni Shelton MD Objective Remarks GENERAL: 56-year-old male, currently sedated and orotracheally intubated/critically ill HEAD: Status post left craniectomy. Incision is clean dry and intact EYES: About 3 mm bilaterally and reactive NECK: Supple, trachea midline. orotracheal tube in place. CARDIOVASCULAR: Tachycardic, RR. S1, S2. No S4. 2/6 murmur left lower sternal border RESPIRATORY: Diminished breath sounds bilateral lower lobes. Scattered rhonchi throughout, less so. GASTROINTESTINAL: Abdomen soft, non-tender, nondistended. Hypoactive bowel sounds are appreciated MUSCULOSKELETAL: Ischemic changes to left index finger tip and right 4th fingertip, skin marginal at best. Other digits have remained warm and well perfused. Arms and legs warm, toes all well-perfused. NEURO EXAM: RASS -3 Procedures 10/13 Four-vessel cerebral angiography with verapamil treatment of vasospasm Date of Insertion: Oct 14, 2016 Line: Central Venous Catheter Side: Right Location: Subclavian A/P Assessment and Plan Neuro/Psych Status post left frontotemporal parietal craniectomy 10/08 for evacuation subdural hematoma/duraplasty Left subdural hematoma - 1.3 cm with 1.6 shift left to right Subarachnoid hemorrhage contents 5, Carroll grade 4 - left P-comm status post 4 coiling 10/08 - TCD's daily: 10/19 - vasospasm -intra-arterial verapamil - Nimodipine 60 mg every 4 hours for vasospasm to complete 21 days. Initiated - Levetiracetam 500 mg IV twice a day for seizure prophylaxis - 10/13 and 10/14 and 10/17) 10/19 left MCA territory vasospasm, status post successful verapamil treatment by IR with 20 mg verapamil - SBP goal 180 - 220 mmHg, although only able to press to 160 on maximal therapy given cardiac dysfunction. - check phenytoin level -> 7. - 10/17 CT brain - less hemisphere edema with herniation through left craniotomy site and CT brain for today - Dr. Perry/neurosurgery - Currently on midazolam 4 mg an hour and fentanyl drip at 150 an hour - 10/21 stopped cisatracurium drip at 4 g per kilo per minute titrate to maintain [id number] 2 out of 4 Respiratory: Acute hypoxic Respiratory failure-ARDS Noncardiogenic/neurogenic pulmonary edema - pulmonary edema, may be non-cardiogenic/neurogenic from SAH/vasospasm. cannot diurese due to active cerebral vasospasm. - [facility] /[birth year] - Ventilator bundle - Albuterol/age-appropriate versus every 6 hours with albuterol aerosols every 2 hours. Dyspnea - Epoprostenol 50 ng/kg/min aerosolized continue - Currently not appropriate for prone therapy due to subarachnoid hemorrhage/ cardiac dysfunction - Follow-up ABG/chest x-ray in a.m. - Reduce PEEP to 10 -> 5 --Start SBTs Cardiovascular: Severe shock - septic and cardiogenic Severe LV dysfunction secondary to SAH Elevated troponin- secondary to SAH, unlikely to be ACS. Pulmonary hypertension -Currently on phenylephrine at 300 g per minute /norepinephrine 18 micrograms a minute, vasopressin 0.04 units a minute, epinephrine at 20 micrograms a minute to maintain to start blood pressure greater than 150 Continue stress dose hydrocortisone 100 mg IV every 8 hours - On milrinone 0.5 mics per kilogram per minute - goal euvolemia. +3 L. Will give low-dose diuretic today Currently off maintenance IV fluids Maximize concentration of all vasopressors - troponin elevation peak 4.71 likely secondary to his cardiac dysfunction secondary to SAH. unlikely to be ACS, and at this point unable to evaluate or intervene on coronary ischemia given how critically ill he is. Echocardiogram 10/14/16 revealed EF 40-45%. Septal hypokinesis. Moderate MR. Severe pulmonary hypertension with pulmonary artery pressures estimated 61 mmHg Cardiac CO 6.4 SVV 8. Renal: Cerebral Salt Wasting/SIADH - q1h uop -- Strict I/Os - BNP > 5000 on 10/18 See below. Creatinine currently within normal limits Resolved FEN/GI: Severe hyponatremia Hypokalemia Elevated transaminases Hyperammonia -Currently on sodium chloride 3gm po TID - 3% NaCl 30cc/hr. - serial sodiums every 6 hours - ICU electrolyte protocol - aggressively replace potassium losses. - NPO while in shock. Will start TPN today - Lansoprazole 30 mg by tube daily for GI prophylaxis -Docusate sodium 100 mg twice a day, senna liquid 8.6 mg twice a day and polyethylene glycol 3350 17 g twice a day for bowel regimen Start lactulose 30 cc twice a day. Check ammonia level in a.m. Check liver ultrasound. Recheck LFTs in a.m. Likely secondary to hypoperfusion /shock Heme/ID: Septic Shock Possible HCAP -10/18 d/c empiric abx: vancomycin, cefepime, azithromycin. Will antonio culture again today and restart antibiotics with vancomycin, piperacillin/tazobactam on 10/19 Digital Ischemia with necrosis - Local phenomenon. CO always hyperdynamic range, urine copious. - Diltiazem and milrinone infusions continuous for 6 days now. Pertinent cultures 10/15 - blood cultures - 1 out of 4 anaerobic gram-negative cocci possibly Veillonella 10/15 - sputum - beta strep not A, strep species 10/19 - urine - pending 10/19 - sputum - pending -> NG Endocrine: Presumed Adrenal Insufficiency -Discontinued fludrocortisone 10/18. Monitor sodium 6 hours. - Current hydrocortisone 100 mg every 8 hours. Sliding-scale insulin with Novulog -Accu-Cheks every 4 hours to maintain euglycemia [place] protocol. Add levemir bid. Taper off cortisone -> done Prophylaxis: GI Prophylaxis - lansoprazole DVT Prophylaxis-- SCDs, heparin subcutaneous Lines: - 10/14 right SC TLC, removed 10/22 - 10/14 right radial art line, removed 10/14 - 10/15 left radial art line, removed 10/16 - 10/15 left femoral art line - 10/22 left groin triple lumen placed - Maldonado Overall impression: Remains critically ill with vasospasm following spontaneous subarachnoid hemorrhage. Digital ischemia has improved. Milrinone improved CO but ischemia to two fingertips persists. BNP 777 today consistent with acute on chronic heart failure. Milrinone to 0.75. Urine output continues to confirm good renal perfusion, CVP confirms good preload. He will lose fingertips due to heart failure and local digital vasospasm. Aside from demarcated fingers he is warm and well perfused. Will slowly decrease diltiazem and milrinone. Continue SBTs. Start TFs. Rodriguez Collazo MD Oct 29, 2016 11:45
[2016-10-29] MEDS: BENEPROTEIN POWDER 1 PACK G-TUBE SCH ×2 (13:00→17:37)
[2016-10-29] MEDS: DILTIAZEM HCL 60 MG TAB PO SCH ×3 (13:47→23:06)
[2016-10-29] MEDS: fentaNYL DRIP 250 ML IV PRN (15:06)
[2016-10-29] MEDS: FAT EMULSION 20% INJ 250 ML (@10 mls/hr) IV-CENTRAL SCH (19:58)
[2016-10-29] MEDS: CLINIMIX E 4.25/25 2000 mL- >42 mls/hr IV-CENTRAL SCH ×3 (19:58)
[2016-10-30] VITALS (17 sets, daily range): BP systolic 126–161; BP diastolic 71–84; PULSE 89–111; RESP 17–22; TEMP 98.6–99.9; O2SAT 96–100
[2016-10-30 03:22] LABS: AUTOMATED NEUTROPHIL # 7.3 TH/MM3 (1.8-7.7); BASOPHIL # 0.1 TH/MM3 (0-0.2); BASOPHIL % 0.7 % (0.0-2.0); EOSINOPHIL # 0.1 TH/MM3 (0-0.4); EOSINOPHIL % 1.1 % (0.0-4.0); HEMATOCRIT 26.6 % (39.0-51.0); HEMO FLAGS DIFF FINAL; LYMPH % 11.4 % (9.0-44.0); LYMPHOCYTE # 1.1 TH/MM3 (1.0-4.8); MEAN CORPUSCULAR HEMOGLOBIN 31.7 PG (27.0-34.0); MEAN CORPUSCULAR HGB CONC 32.7 % (32.0-36.0); MONO % 12.4 % (0.0-8.0); NEUT % 74.4 % (16.0-70.0); PLATELET COUNT 184 TH/MM3 (150-450); RED BLOOD COUNT 2.74 MIL/MM3 (4.50-5.90); RED CELL DISTRIBUTION WIDTH 14.7 % (11.6-17.2); WHITE BLOOD COUNT 9.8 TH/MM3 (4.0-11.0)
[2016-10-30] MEDS: niMODipine 30 MG CAP PO SCH ×6 (03:35→23:12)
[2016-10-30] MEDS: CHLORHEXIDINE GLUCONATE 2 % 1 PACK (2 CLOTHS) TOP SCH (03:35)
[2016-10-30] MEDS: MILRINONE INJ 20 MG in SODIUM CHLORIDE 0.9% INJ 80 ML IV SCH ×2 (03:35→15:14)
[2016-10-30] MEDS: INSULIN ASPART SUPPLEMENTAL SCALE SQ SCH ×6 (03:35→20:00)
[2016-10-30 03:44] LABS: ANION GAP 7 MEQ/L (5-15); AST (GOT) 54 U/L (15-37); BICARBONATE 28.3 MEQ/L (21.0-32.0); BLOOD UREA NITROGEN 18 MG/DL (7-18); CHLORIDE 110 MEQ/L (98-107); GLOMERULAR FILTRATION RATE 206 ML/MIN (>89); POTASSIUM 3.5 MEQ/L (3.5-5.1); SODIUM (NA) 145 MEQ/L (136-145)
[2016-10-30 03:48] LABS: ALKALINE PHOSPHATASE 240 U/L (45-117); ALT (GPT) 112 U/L (12-78); TOTAL BILIRUBIN ADULT 0.3 MG/DL (0.2-1.0)
[2016-10-30] MEDS: HEPARIN SODIUM - SQ 10,000 UNITS/ML VIAL SQ SCH ×3 (05:01→21:22)
[2016-10-30] MEDS: PHENYTOIN INJ 100 MG/2 ML VIAL IV SCH ×3 (05:02→21:22)
[2016-10-30] MEDS: DILTIAZEM HCL 60 MG TAB PO SCH ×4 (05:02→23:12)
[2016-10-30] MEDS: levETIRAcetam INJ 500 MG in SODIUM CHLORIDE 0.9% INJ 100 ML IV SCH ×2 (05:02→17:40)
[2016-10-30] MEDS: PROPOFOL 1000 MG/100 ML IV PRN ×3 (05:02→21:50)
[2016-10-30] MEDS: VASOPRESSIN INJ 40 UNITS in DEXTROSE 5% IN WATER 100ML INJ 98 ML IV SCH ×2 (05:02)
[2016-10-30] MEDS: POTASSIUM CHLOR 40 MEQ PREMIX 100 ML IV PRN (06:06)
--- NOTE | 2016-10-30 07:02 | HHI.NSPN ---
(Luis Espinosa) History Chief Complaint: Unable to obtain due to patient's clinical condition. (Luis Espinosa) Interval History This is a 56-year-old male brought to the emergency room as an emergency transfer from another institution with history of intracranial bleed. He was transferred from [facility] [place] and [facility]. Apparently the patient said that patient earlier this morning was coming down the stairs when he started feeling some left-sided weakness and numbness. He called 911 and by the time EMS arrived they detected severe neurological deficits and called a stroke alert. No seizure activity reported. No tongue biting. No incontinence of stool or urine. Patient was taken to [facility], [place]. Apparently he was not able to move his right side . When patient arrived his mental status started to decline and he was intubated emergently in the ER for airway protection. A CT scan of the head showed extensive subarachnoid bleed. In addition he had a sizable subdural hematoma. He was brought emergently on the ventilator. He was on a propofol drip and well sedated. GCS was 3. He was on a Cardene drip and blood pressure was in the 120s. Neurosurgical consultation was requested 10/08. POD #1 Open eyes and follows commands 10/09/16 POD #2: Pt sedated on Diprivan. Intubated. When held pt opens eyes and follows commands. Pupils 3mm bilaterally reactive briskly bilaterally. 10/24/16: Pt intubated and sedated on versed and Fentanyl drips. Pupils 3mm bilaterally. 10/25: off Nimbex. Mildly opening eyes today. 10/26: opening eyes more today, ?focusing 10/27: intubated, minimal eye opening. not following commands. 10/28: appears more awake, following commands, focusing and tracked. shook head no when asked if doing ok. 10/29: Patient intubated. He opens his eyes slightly to pain. He is sedated on Diprivan and fentanyl drips. Not following commands for me but he is sedated. 10/30: Pt with eyes open slightly. Squints eyes to command. He has edema in extremities may be difficult to follow other commands. Currently on CPAP this am. He is on Diprivan and Fentanyl drips. (Luis Espinosa) System Review Comments Not able to obtain given clinical condition. (Luis Espinosa) Exam Results Vital Signs Date Time Temp Pulse Resp B/P (MAP) Pulse Ox O2 Delivery O2 Flow Rate FiO2 10/30/16 06:00 103 10/30/16 05:02 139/70 10/30/16 04:42 96 35 10/30/16 04:00 98.6 22 10/29/16 07:45 Ventilator Intake and Output 10/30/16 10/30/16 10/31/16 08:00 16:00 00:00 Intake Total 2000 ml Output Total 1950 ml Balance 50 ml (Luis Espinosa) Physical Examination Respiratory: Intubated, on CPAP this morning. Heart: NSR no murmurs Abd: Soft positive bs. NG TFs at 50 ml/hr. Skin: Craniectomy site healing without signs of infection. Craniectomy site is depressed. Muscle: Following some commands squints eyes to command. Extremities with edema may make it difficult to squeeze or move toes. Neuro: Patient is sedated on Diprivan and fentanyl drips. Pt with eyes open slightly. Pupils 3 mm bilaterally. Not following commands. (Luis Espinosa) Lab, Micro, Other Results Last Impressions Chest X-Ray 10/22/16 0000 Signed Impressions: Service Date/Time: Saturday, October 22, 2016 13:54 - CONCLUSION: No significant change. No evidence of pneumothorax. Paddy Pineda MD Abdomen X-Ray 10/21/16 06 Signed Impressions: Service Date/Time: Friday, October 21, 2016 03:50 - CONCLUSION: 1. NGT in the stomach. 2. General paucity of small bowel gas. This finding is nonspecific and occasionally may reflect fluid-filled loops of bowel. Otherwise, no dilated bowel loops to suggest significant ileus or obstruction. Kev Vergara MD Transcranial Doppler Study Complete 10/20/16 06 Signed Impressions: Service Date/Time: October 07:54 - CONCLUSION: Slight interval elevation of flow velocity measurements and ratio on the left Yosvany Davidson. [place], MD Liver Ultrasound 10/19/16 0000 Signed Impressions: Service Date/Time: Wednesday, October 19, 2016 11:20 - CONCLUSION: 1. Sludge filled gallbladder with thickened wall. 2. Moderate size bilateral pleural effusions and mild upper abdominal ascites. Snatos Vazquez MD Cerebral Arteriogram 10/19/16 0000 Signed Impressions: Service Date/Time: Wednesday, October 19, 2016 12:47 - CONCLUSION: Uncomplicated cerebral arteriography with spasmolytic therapy as described in detail above. Yosvany Polk MD Head CT 10/17/16 0000 Signed Impressions: Service Date/Time: Monday, October 17, 2016 15:06 - CONCLUSION: Ventricles are slightly larger without ventriculostomy. Edema in the left hemisphere the brain herniating through the operative site. Remington Woodward MD FACR Infusion Non-thrombolysis 10/14/16 1103 Signed Impressions: Service Date/Time: Friday, October 14, 2016 10:21 - CONCLUSION: 1. Uncomplicated infusion for spasmolysis Harvey Morejon MD Neck CTA 10/07/16 0000 Signed Impressions: Service Date/Time: Friday, October 07, 2016 15:03 - CONCLUSION: 1. Mild carotid bulb atherosclerotic calcification bilaterally. However, no significant stenosis is present in either internal carotid artery. 2. Paranasal sinus mucoperiosteal thickening. 3. Please refer to brain CTA report for description of the intracranial findings. Yosvany Ramirez MD Head CTA 10/07/16 0000 Signed Impressions: Service Date/Time: Friday, October 07, 2016 15:03 - CONCLUSION: 1. 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 2. Large left subdural hematoma measuring 1.3 cm in depth with a significant, 1.6 cm left to right subfalcine shift. Joni Shelton MD Laboratory Tests Test 10/30/16 03:02 White Blood Count 9.8 TH/MM3 Red Blood Count 2.74 MIL/MM3 Hemoglobin 8.7 GM/DL Hematocrit 26.6 % Mean Corpuscular Volume 97.0 FL Mean Corpuscular Hemoglobin 31.7 PG Mean Corpuscular Hemoglobin Concent 32.7 % Red Cell Distribution Width 14.7 % Platelet Count 184 TH/MM3 Mean Platelet Volume 10.4 FL Neutrophils (%) (Auto) 74.4 % Lymphocytes (%) (Auto) 11.4 % Monocytes (%) (Auto) 12.4 % Eosinophils (%) (Auto) 1.1 % Basophils (%) (Auto) 0.7 % Neutrophils # (Auto) 7.3 TH/MM3 Lymphocytes # (Auto) 1.1 TH/MM3 Monocytes # (Auto) 1.2 TH/MM3 Eosinophils # (Auto) 0.1 TH/MM3 Basophils # (Auto) 0.1 TH/MM3 CBC Comment DIFF FINAL Differential Comment Blood Urea Nitrogen 18 MG/DL Creatinine 0.43 MG/DL Random Glucose 116 MG/DL Total Protein 6.0 GM/DL Albumin 1.3 GM/DL Calcium Level 7.9 MG/DL Alkaline Phosphatase 240 U/L Aspartate Amino Transf (AST/SGOT) 54 U/L Alanine Aminotransferase (ALT/SGPT) 112 U/L Total Bilirubin 0.3 MG/DL Sodium Level 145 MEQ/L Potassium Level 3.5 MEQ/L Chloride Level 110 MEQ/L Carbon Dioxide Level 28.3 MEQ/L Anion Gap 7 MEQ/L Estimat Glomerular Filtration Rate 206 ML/MIN (Luis Espinosa) Medical Decision Making Impression and Plan A: 56 y/o M s/p left frontotemporal parietal decompressive craniectomy. Improved on follow up CT. P: Continue to monitor Neuro exam. Continue with current care Continue Protonix for stress ulcer prophylaxis Continue Colt hose and SCD's for DVT prophylaxis Neurosurgically stable for trach/peg per Dr. Perry. (Luis Espinosa) Attending Statement The exam, history, and the medical decision-making described in the above note were completed with the assistance of the mid-level provider. I reviewed and agree with the findings presented. I attest that I had a [id number] encounter with the patient on the same day, and personally performed and documented my assessment and findings in the medical record. (Terrance Arguelles MD) Luis Espinosa Oct 30, 2016 07:02 Terrance Arguelles MD Oct 30, 2016 10:23
[2016-10-30] MEDS: CHLORHEXIDINE 0.12% (ORAL KIT) 15 ML CUP MT SCH ×2 (07:53→20:13)
[2016-10-30] MEDS: ARTIFICIAL TEARS OPTH SOLN 15 ML BTL EACH EYE SCH ×3 (07:54→17:41)
[2016-10-30] MEDS: FUROSEMIDE 40 MG/4 ML VIAL IV PUSH SCH (07:54)
[2016-10-30] MEDS: SODIUM CHLORIDE 0.9% FLUSH 10 ML FLUSH IV FLUSH SCH ×2 (07:54→20:13)
[2016-10-30] MEDS: BENEPROTEIN POWDER 1 PACK G-TUBE SCH ×3 (07:54→17:40)
[2016-10-30] MEDS: INSULIN DETEMIR 100 UNITS/ML VIAL SQ SCH ×2 (07:55→21:00)
[2016-10-30] MEDS: DOCUSATE SODIUM 100 MG/10 ML UDC PO SCH ×2 (07:55→20:14)
[2016-10-30] MEDS: LANSOPRAZOLE SOLUTAB 30 MG TAB NG SCH (07:55)
[2016-10-30] MEDS: SODIUM CHLORIDE 1 GRAM TAB PO SCH ×3 (07:55→17:40)
[2016-10-30] MEDS: SENNOSIDES SYRUP 8.8 MG/5 ML CUP PO SCH ×2 (07:56→20:15)
[2016-10-30] MEDS: POLYETHYLENE GLYCOL 17 GM PKG OG-TUBE SCH ×2 (07:56→20:14)
[2016-10-30] MEDS: LACTULOSE SYRUP 20 GM/30 ML CUP OG-TUBE SCH ×2 (07:56→20:14)
--- NOTE | 2016-10-30 10:06 | HHI.CCPN ---
Subjective Remarks/Hospital Course 10/07: 56-year-old male presents with intracranial bleed. Patient was transferred from [facility] at [facility]. As per the paramedics and the nurse who assisted the patient said that patient earlier this morning was coming down the stairs when he started feeling some left-sided weakness and numbness. He called 911 and by the time EMS arrived they detected some deficit and called a stroke alert. Patient was taken to [facility]. When patient arrived his mental status started to decline and he was intubated emergently in the ER. A CAT scan of the head showed subarachnoid and subdural bleed. He was taking emergently to an angio suite for coiling of the aneurysm and later on to OR for subdural hematoma evacuation. 10/08: Remains sedated, orally intubated on mechanical ventilation. Arouses off sedation and following commands with both upper extremities earlier. Ventriculostomy in place. ICP 7, CPP mid 80s. 10/09: Remains sedated, orally intubated on mechanical ventilation. Arouses off sedation and follows commands with both upper extremities. Ventriculostomy in place. 10/10: Remains sedated, orally intubated on mechanical ventilation. Arouses off sedation and follows commands and both upper extremities. Ventriculostomy in place. ICP 5. Failed C Pap trial yesterday. 10/11: Extubated on 10/10, tolerating well. Awake and alert. Appears confused, moving all 4 extremities. Ventriculostomy discontinued today by neurosurgery 10/13: Patient has developed severe vasospasm at the left MCA territory on TCD's that was treated with IV route verapamil 10/14: patient extubated overnight. was originally following commands and neuro intact. TCDs this morning with increase LIs over yesterday, particularly Left MCA territory. On my evaluation early this morning, patient was aphasic, not moving the right side of his body, not following commands. SBP 140s at that time. net 2L negative/24h and uop almost 1L/hr at the time. I immediately bolused with 2L NS iv, placed arterial and central lines, started phenylephrine , increased SBP to goal 200 - 220 mmHg. called interventional neuroradiology and accompanied patient down personally to IR for IA verapamil again. I remained with the patient managing his hemodynamics down in IR and providing anxiolysis IV. I accompanied patient back up to [facility] where patient again was neuro intact and following commands. Sodium downtrending to 135 and urine studies and serum osms suggestive of urine sodium losses and high uop. added Florinef to mitigate sodium losses, and increased mivf to 500cc/hr to maintain euvolemia. later in the day patient decompensated requiring intubation for hyoxemia, cxr suggestive of pulmonary edema. 2d echo with evidence of EF 40%, septal hypokinesis, moderate MR. On levo, vaso, phenylephrine. difficult to get to goal SBP 200 mmHg, likely due to myocardial dysfunction. decreased goal to 180 - 200 mmHg to balance cardiac vs. neurologic goals. 10/15 Patient was discussed with Dr. Sullivan at shift change. Isuprel was initiated in effort to improve cardiac output as dobutamine not available and concerned with use of milrinone given long half life. Systolic blood pressure was relatively stable with perhaps some modest improvement from 170s to 180s for several hours after initiation. Notified when patient became abruptly hypotensive despite vasopressin, levophed 20 mcg/min, Greyson-Synephrine 300 mcg/m. He was also hypoxemic with sats in 80s despite PCV with PEEP 8 and FiO2 100%, respiratory rate in the 30s. He had decreased breath sounds bilaterally and was concerned for air trapping so removed from mechanical ventilation and bagged without improvement. Placed patient back on mechanical ventilation and provide recruitment maneuvers and increased PEEP to 12 which resulted in improvement of sats to 88% to 92%. Ordered Flolan. Discontinued isuprel and initiated epinephrine. R radial art line would not draw blood . Performed u/s guided femoral artery stick to confirm hypoxemia on ABG given poor wave form on pulse ox and PaO2 was 58. Placed new L radial art line and this resulted in ~ 30 point increase in SBP relative to prior line but patient ultimately on vasopressin, levophed 30 micrograms per minute, Greyson-Synephrine 300 micrograms per minute, epinephrine 12 mcg/min and unable to maintain target pressure (SBP in 150s). Given calcium chloride. patient with shaking movements all extremities, pupils 2mm and sluggish, no eye deviation. Rigors seemed most likely but unable to emergently rule out seizures so loaded with fosphenytoin to avoid secondary injury from seizure activity. WBC increasing and concern for HCAP so pancultured and placed on cefepime, vancomycin, azithromycin. Hydrocortisone 100 mg IV every 8 hours initiated due to concern for septic shock in a patient who has been refractory to all other above measures. Patient is to hemodynamically unstable and hypoxic for transport for neurologic imaging. Urine output has declined to 180-200 ML's per hour. Back off maintenance IV fluids to 200 ML's per hour. Bedside echo demonstrates decreased LV function with normal RV contractility and collapsible IVC suggesting ongoing maintenance fluid administration is appropriate. 10/15 additional visit: continued to deteriorate throughout the day. Seen multiple times. hypoxic on 100% fio2, flolan. required nimbex drip to maintain. repeat bedside critical care ultrasound still demonstrates severe LV dysfunction , decompressed RV, IVC more dilated than previous echo overnight, however still with respiratory variation. femoral arterial line placed with better waveform and higher pressure (likely SVR too high to allow accurate measurement of radial pressure). Pulse contour analysis without stroke volume variation, CI 3.6. SV 52mL. trialed additional albumin without improvement in hemodynamics. uop slower than before, but still significant salt wasting in the urine- sodium dropped to 125 from 132 despite already on 3% nacl infusion and aggressive sodium replacements. forced to give 23% nacl and salt tabs. declining clinically despite maximal therapy. 10/16: continues to be maximally critically ill. LV dysfunction persists. starting to get volume overloaded, but given concern for ongoing cerebral vasospasm, unable to actively diurese patient. sodium wasting persists, but uop downtrending slightly. very hypokalemic today, likely due to steroids. remains intubated, sedated, paralyzed, on flolan. CXR today appears worse with worsening airspace disease. Lactate remains slightly elevated, confirming persistent shock. 10/17: Lung infiltrates dense bilaterally, reflected in shunting and problems with oxygenation. Developed vasospasm on TCDs and required angiogram and intra- arterial verapamil again today. 10/18: SBP 160 - 170 range. FiO2 0.55. BNP > 5000. Not tolerating attempts at maintaining higher BP due to worsening heart failure. Several episodes of vasospasm. Watch daily TCDs closely. Sputum no growth. 10/19: Tmax 99.8. Currently 99. Remains on 4 vasopressors and epoprostenol Subjective 10/20: Yesterday. Returned IR for intra-arterial calcium channel jose infusion for vasospasm. Transcranial Dopplers today Still pending. Remains on significant vasopressor support. 10/21: Good response to diuresis, check BNP. TCDs pending. Heart failure remains a major problem. 10/22: CVP 21 - 22, finger tips blue, digits pale white despite high dose milrinone dilation. Greyson and vaso much reduced. Will try diltiazem gtt for digital ischemia. Urine remains > 200/hr and proximal limbs are well perfused. This digital ischemia appears to be a local phenomenon ala Raynaud's. New subcutaneous emphysema right anterior chest wall. 10/23: Old CVL removed. Fingertips remain marginal, some necrotic despite diltiazem and milrinone treatment for digital ischemia. Cardiac output > 7 liters/min and urine copious, confirming good perfusion pressure and flow. This continues to be a local phenomenon of the digits ala Raynaud's. We are trying to wean vasopressors off but are required to maintaining a cerebral perfusion pressure suitable for the treatment of aneurysmal subarachnoid bleed. Frankly, the importance of brain function eclipses fingertips. 10/24: Afebrile. Well perfused except for index finger left hand, few tips fingers right. Arms and hands warmer with resolving circumferential edema. Diltiazem and milrinone gtt continue. Greyson to 10 mics/min. 10/25: Digits are warm and well perfused except left index and right 4th fingertips; demarcated and not viable. Dry. Diltiazem and milrinone infusions continue to help reverse digital ischemia. 10/26: Forced diuresis continues and BP remains nicely elevated. Hands and digits warm aside from left index and right 4th fingertips which have demarcated. 10/27: Good response to diuretics. Perfusion pressure and documented flow excellent. Continue to wean vent. 10/28: Start SBTs. Fluid balance back toward normal. 10/29: Tolerating SBTs. Lowering sedation. Edema resolving. 10/30: Tolerating tube feeds, will taper off TPN and remove central line. Continue diuretics. Objective Vital Signs Date Time Temp Pulse Resp B/P (MAP) Pulse Ox O2 Delivery O2 Flow Rate FiO2 10/30/16 08:07 100 35 10/30/16 08:07 Ventilator 10/30/16 08:00 98.8 103 20 135/71 (92) Intake and Output 10/30/16 10/30/16 10/31/16 08:00 16:00 00:00 Intake Total 2000 ml Output Total 1950 ml Balance 50 ml Result Diagram: 10/30/16 0302 10/30/16 0302 Imaging Last Impressions Chest X-Ray 10/20/16 0000 Signed Impressions: Service Date/Time: October 03:47 - CONCLUSION: 1. Stable tubes and lines. 2. Stable bilateral lower lung zone airspace disease. 3. Stable small right pleural effusion. 4. No significant interval change. Kev Vergara MD Transcranial Doppler Study Complete 10/19/16 0600 Signed Impressions: Service Date/Time: Wednesday, October 19, 2016 08:02 - CONCLUSION: Suspect developing right MCA vasospasm Yosvany Polk MD Liver Ultrasound 10/19/16 0000 Signed Impressions: Service Date/Time: Wednesday, October 19, 2016 11:20 - CONCLUSION: 1. Sludge filled gallbladder with thickened wall. 2. Moderate size bilateral pleural effusions and mild upper abdominal ascites. Santos Vazquez MD Head CT 10/17/16 0000 Signed Impressions: Service Date/Time: Monday, October 17, 2016 15:06 - CONCLUSION: Ventricles are slightly larger without ventriculostomy. Edema in the left hemisphere the brain herniating through the operative site. Remington Woodward MD FACR Cerebral Arteriogram 10/17/16 0000 Signed Impressions: Service Date/Time: Monday, October 17, 2016 00:00 - CONCLUSION: 1. Uncompensated spasmolysis of the left middle cerebral artery Harvey Morejon MD Infusion Non-thrombolysis 10/14/16 1103 Signed Impressions: Service Date/Time: Friday, October 14, 2016 10:21 - CONCLUSION: 1. Uncomplicated infusion for spasmolysis Harvey Morejon MD Neck CTA 10/07/16 0000 Signed Impressions: Service Date/Time: Friday, October 07, 2016 15:03 - CONCLUSION: 1. Mild carotid bulb atherosclerotic calcification bilaterally. However, no significant stenosis is present in either internal carotid artery. 2. Paranasal sinus mucoperiosteal thickening. 3. Please refer to brain CTA report for description of the intracranial findings. Yosvany Ramirez MD Head CTA 10/07/16 0000 Signed Impressions: Service Date/Time: Friday, October 07, 2016 15:03 - CONCLUSION: 1. 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 2. Large left subdural hematoma measuring 1.3 cm in depth with a significant, 1.6 cm left to right subfalcine shift. Joni Shelton MD Objective Remarks GENERAL: 56-year-old male, currently sedated and orotracheally intubated/critically ill HEAD: Status post left craniectomy. Incision is clean dry and intact EYES: About 3 mm bilaterally and reactive NECK: Supple, trachea midline. orotracheal tube in place. CARDIOVASCULAR: Tachycardic, RR. S1, S2. No S4. 2/6 murmur left lower sternal border RESPIRATORY: Diminished breath sounds bilateral lower lobes. Scattered rhonchi throughout, less so. GASTROINTESTINAL: Abdomen soft, non-tender, nondistended. Hypoactive bowel sounds are appreciated MUSCULOSKELETAL: Ischemic changes to left index finger tip and right 4th fingertip, skin marginal at best. Other digits have remained warm and well perfused. Arms and legs warm, toes all well-perfused. NEURO EXAM: Opens eyes to loud voice. Intermittently squeezes left hand to command. Breathes with good strength. Procedures 10/13 Four-vessel cerebral angiography with verapamil treatment of vasospasm Date of Insertion: Oct 14, 2016 Line: Central Venous Catheter Side: Right Location: Subclavian A/P Assessment and Plan Neuro/Psych Status post left frontotemporal parietal craniectomy 10/08 for evacuation subdural hematoma/duraplasty Left subdural hematoma - 1.3 cm with 1.6 shift left to right Subarachnoid hemorrhage contents 5, Carroll grade 4 - left P-comm status post 4 coiling 10/08 - TCD's daily: 10/19 - vasospasm -intra-arterial verapamil - Nimodipine 60 mg every 4 hours for vasospasm to complete 21 days. Initiated - Levetiracetam 500 mg IV twice a day for seizure prophylaxis - 10/13 and 10/14 and 10/17) 10/19 left MCA territory vasospasm, status post successful verapamil treatment by IR with 20 mg verapamil - SBP goal 180 - 220 mmHg, although only able to press to 160 on maximal therapy given cardiac dysfunction. - check phenytoin level -> 7. - 10/17 CT brain - less hemisphere edema with herniation through left craniotomy site and CT brain for today - Dr. Orlando/neurosurgery Respiratory: Acute hypoxic Respiratory failure-ARDS Noncardiogenic/neurogenic pulmonary edema - pulmonary edema, may be non-cardiogenic/neurogenic from SAH/vasospasm. cannot diurese due to active cerebral vasospasm. - [facility] /[birth year] - Ventilator bundle - Albuterol/age-appropriate versus every 6 hours with albuterol aerosols every 2 hours. Dyspnea - Epoprostenol 50 ng/kg/min aerosolized continue - Currently not appropriate for prone therapy due to subarachnoid hemorrhage/ cardiac dysfunction - Follow-up ABG/chest x-ray in a.m. - Reduce PEEP to 10 -> 5 --Start SBTs Cardiovascular: Severe shock - septic and cardiogenic Severe LV dysfunction secondary to SAH Elevated troponin- secondary to SAH, unlikely to be ACS. Pulmonary hypertension -Currently on phenylephrine at 300 g per minute /norepinephrine 18 micrograms a minute, vasopressin 0.04 units a minute, epinephrine at 20 micrograms a minute to maintain to start blood pressure greater than 150 Continue stress dose hydrocortisone 100 mg IV every 8 hours - On milrinone 0.5 mics per kilogram per minute - goal euvolemia. +3 L. Will give low-dose diuretic today Currently off maintenance IV fluids Maximize concentration of all vasopressors - troponin elevation peak 4.71 likely secondary to his cardiac dysfunction secondary to SAH. unlikely to be ACS, and at this point unable to evaluate or intervene on coronary ischemia given how critically ill he is. Echocardiogram 10/14/16 revealed EF 40-45%. Septal hypokinesis. Moderate MR. Severe pulmonary hypertension with pulmonary artery pressures estimated 61 mmHg Cardiac CO 6.4 SVV 8. D/C a-line today 10/30 Renal: Cerebral Salt Wasting/SIADH - q1h uop -- Strict I/Os - BNP > 5000 on 10/18 See below. Creatinine currently within normal limits Resolved FEN/GI: Severe hyponatremia Hypokalemia Elevated transaminases Hyperammonia -Currently on sodium chloride 3gm po TID - 3% NaCl 30cc/hr. - serial sodiums every 6 hours - ICU electrolyte protocol - aggressively replace potassium losses. - NPO while in shock. Will start TPN today - Lansoprazole 30 mg by tube daily for GI prophylaxis -Docusate sodium 100 mg twice a day, senna liquid 8.6 mg twice a day and polyethylene glycol 3350 17 g twice a day for bowel regimen Start lactulose 30 cc twice a day. Check ammonia level in a.m. Likely secondary to hypoperfusion/shock Heme/ID: Septic Shock Possible HCAP -10/18 d/c empiric abx: vancomycin, cefepime, azithromycin. Will antonio culture again today and restart antibiotics with vancomycin, piperacillin/tazobactam on 10/19 Digital Ischemia with necrosis - Local phenomenon. CO always hyperdynamic range, urine copious. - Diltiazem and milrinone infusions continuous for 6 days now. -- Digits have demarcated. D/C milrinone and convert cardizem to PO (for digital ischemia, Raynaud's) Pertinent cultures 10/15 - blood cultures - 1 out of 4 anaerobic gram-negative cocci possibly Veillonella 10/15 - sputum - beta strep not A, strep species 10/19 - urine - pending 10/19 - sputum - pending -> NG Endocrine: Presumed Adrenal Insufficiency -Discontinued fludrocortisone 10/18. Monitor sodium 6 hours. - Current hydrocortisone 100 mg every 8 hours. Sliding-scale insulin with Novulog -Accu-Cheks every 4 hours to maintain euglycemia [place] protocol. d/c levemir bid. Taper off cortisone -> done Prophylaxis: GI Prophylaxis - lansoprazole DVT Prophylaxis-- SCDs, heparin subcutaneous Lines: - 10/14 right SC TLC, removed 10/22 - 10/14 right radial art line, removed 10/14 - 10/15 left radial art line, removed 10/16 - 10/15 left femoral art line - 10/22 left groin triple lumen placed, d/c 10/30 - Erica Overall impression: Improved neurological status. Digital ischemia has improved. Milrinone improved CO but ischemia to two fingertips persists. BNP elevated today consistent with acute on chronic heart failure.. Urine output continues to confirm good renal perfusion. He will lose fingertips due to heart failure and local digital vasospasm. Aside from demarcated fingers he is warm and well perfused. Will slowly decrease diltiazem and milrinone. Continue SBTs. Start TFs. The patient's digital ischemia developed when he had a cardiac output over 8.0 liters/min, CVP was over 20 mm Hg, and urine over 75 ml/hr for many days. BNP was elevated at 777. His hands and feet were warm but the fingers and toes became cold, white, nearly cadaveric. Neosynephrine was only vasopressor and it was at 30 units/min only. We stopped it immediately and started milrinone and cardizem iv infusions. Most fingers and toes responded well to the vascular dilators but a few digits demarcated and became necrotic. Anticoagulation was not an option in face of recent aneurysm rupture and gastritis. Patients with this degree of digital ischemia (severe Raynaud's) usually have an underlying illness such as malignancy, mixed connective tissue disorder, collagen vascular disease, rheumatoid disease, etc. This workup can progress after he has cleared exogenous steroids which were just stopped. He's in a pretty revved up inflammatory state now and the lab values will be altered by it. Rodriguez Collazo MD Oct 30, 2016 10:06
[2016-10-30] MEDS: fentaNYL DRIP 250 ML IV PRN (17:39)
[2016-10-30] MEDS: CLINIMIX E 4.25/25 2000 mL- >42 mls/hr IV-CENTRAL SCH ×3 (20:00)
[2016-10-30] MEDS: FAT EMULSION 20% INJ 250 ML (@10 mls/hr) IV-CENTRAL SCH (20:00)
[2016-10-31] VITALS (18 sets, daily range): BP systolic 105–146; BP diastolic 69–83; PULSE 86–104; RESP 16–20; TEMP 99.1–99.5; O2SAT 98–100
[2016-10-31] MEDS: MILRINONE INJ 20 MG in SODIUM CHLORIDE 0.9% INJ 80 ML IV SCH ×3 (00:15→20:46)
[2016-10-31] MEDS: VASOPRESSIN INJ 40 UNITS in DEXTROSE 5% IN WATER 100ML INJ 98 ML IV SCH ×2 (01:36)
[2016-10-31] MEDS: CHLORHEXIDINE GLUCONATE 2 % 1 PACK (2 CLOTHS) TOP SCH (03:28)
[2016-10-31] MEDS: niMODipine 30 MG CAP PO SCH ×6 (03:28→23:51)
[2016-10-31] MEDS: INSULIN ASPART SUPPLEMENTAL SCALE SQ SCH ×7 (03:28→23:52)
[2016-10-31] MEDS: levETIRAcetam INJ 500 MG in SODIUM CHLORIDE 0.9% INJ 100 ML IV SCH (05:11)
[2016-10-31] MEDS: DILTIAZEM HCL 60 MG TAB PO SCH ×4 (05:11→23:51)
[2016-10-31] MEDS: PHENYTOIN INJ 100 MG/2 ML VIAL IV SCH ×3 (05:12→22:52)
[2016-10-31] MEDS: HEPARIN SODIUM - SQ 10,000 UNITS/ML VIAL SQ SCH ×3 (05:12→22:57)
[2016-10-31 06:06] LABS: AUTOMATED NEUTROPHIL # 7.3 TH/MM3 (1.8-7.7); BASOPHIL # 0.1 TH/MM3 (0-0.2); BASOPHIL % 0.7 % (0.0-2.0); EOSINOPHIL # 0.1 TH/MM3 (0-0.4); EOSINOPHIL % 0.6 % (0.0-4.0); HEMATOCRIT 32.5 % (39.0-51.0); HEMO FLAGS DIFF FINAL; LYMPH % 10.7 % (9.0-44.0); MEAN CELL VOLUME 100.7 FL (80.0-100.0); MEAN CORPUSCULAR HEMOGLOBIN 32.1 PG (27.0-34.0); MEAN CORPUSCULAR HGB CONC 31.8 % (32.0-36.0); MONO % 9.7 % (0.0-8.0); NEUT % 78.3 % (16.0-70.0); PLATELET COUNT 151 TH/MM3 (150-450); RED BLOOD COUNT 3.23 MIL/MM3 (4.50-5.90); RED CELL DISTRIBUTION WIDTH 15.3 % (11.6-17.2); WHITE BLOOD COUNT 9.3 TH/MM3 (4.0-11.0)
[2016-10-31 06:30] LABS: ALKALINE PHOSPHATASE 277 U/L (45-117); ALT (GPT) 114 U/L (12-78); ANION GAP 6 MEQ/L (5-15); AST (GOT) 49 U/L (15-37); BICARBONATE 26.6 MEQ/L (21.0-32.0); BLOOD UREA NITROGEN 18 MG/DL (7-18); CHLORIDE 110 MEQ/L (98-107); GLOMERULAR FILTRATION RATE 186 ML/MIN (>89); SODIUM (NA) 143 MEQ/L (136-145); TOTAL BILIRUBIN ADULT 0.3 MG/DL (0.2-1.0)
[2016-10-31 06:31] LABS: POTASSIUM 4.4 MEQ/L (3.5-5.1)
[2016-10-31] MEDS: DOCUSATE SODIUM 100 MG/10 ML UDC PO SCH (09:00)
[2016-10-31] MEDS: ARTIFICIAL TEARS OPTH SOLN 15 ML BTL EACH EYE SCH ×3 (09:00→17:35)
[2016-10-31] MEDS: POLYETHYLENE GLYCOL 17 GM PKG OG-TUBE SCH (09:00)
[2016-10-31] MEDS: BENEPROTEIN POWDER 1 PACK G-TUBE SCH ×3 (09:00→17:33)
[2016-10-31] MEDS: SENNOSIDES SYRUP 8.8 MG/5 ML CUP PO SCH (09:00)
[2016-10-31] MEDS: INSULIN DETEMIR 100 UNITS/ML VIAL SQ SCH ×2 (09:00→20:27)
[2016-10-31] MEDS: LANSOPRAZOLE SOLUTAB 30 MG TAB NG SCH (09:32)
[2016-10-31] MEDS: CHLORHEXIDINE 0.12% (ORAL KIT) 15 ML CUP MT SCH ×2 (09:32→20:17)
[2016-10-31] MEDS: FUROSEMIDE 40 MG/4 ML VIAL IV PUSH SCH (09:32)
[2016-10-31] MEDS: SODIUM CHLORIDE 0.9% FLUSH 10 ML FLUSH IV FLUSH SCH ×2 (09:32→20:16)
[2016-10-31] MEDS: LACTULOSE SYRUP 20 GM/30 ML CUP OG-TUBE SCH ×2 (09:32→20:30)
--- NOTE | 2016-10-31 10:08 | HHI.NSPN ---
Note Status Status: Progress Note Interval History Interval History This is a 56-year-old male brought to the emergency room as an emergency transfer from another institution with history of intracranial bleed. He was transferred from [facility] and [facility]. Apparently the patient said that patient earlier this morning was coming down the stairs when he started feeling some left-sided weakness and numbness. He called 911 and by the time EMS arrived they detected severe neurological deficits and called a stroke alert. No seizure activity reported. No tongue biting. No incontinence of stool or urine. Patient was taken to [facility]. Apparently he was not able to move his right side . When patient arrived his mental status started to decline and he was intubated emergently in the ER for airway protection. A CT scan of the head showed extensive subarachnoid bleed. In addition he had a sizable subdural hematoma. He was brought emergently on the ventilator. He was on a propofol drip and well sedated. GCS was 3. He was on a Cardene drip and blood pressure was in the 120s. Neurosurgical consultation was requested 10/08. POD #1 Open eyes and follows commands 10/12. Doing very well. Neurologically stable. Patient is in restraints secondary to pulling out his [place] multiple times. 10/13. Much more lethargic, difficult to speak with new aphasia 10/14. Improved after angiography. Today he developed new onset of aphasia and right hemiparesis 10/17. Intubated and sedated. Lung infiltrates dense bilaterally, reflected in shunting and problems with oxygenation. 10/18: underwent endovascular verapamil infusion to left MCA vasospasm yesterday. TCD today pending. left flap pak today. Intubated and sedated. continues to be on multiple pressors. on 3% NS. 10/19: currently unstable for travel for repeat CT Head this am. no changes with neuro checks, remains intubated, sedated. pupils equal. continues on multiple pressors support 10/20: intubated and mildly sedated. remains on multiple pressors. pneumonia worsening. TCD this am reports slight increase in flow velocity to left, he underwent cerebral angiography yesterday with endovascular verapamil infusion right ICA. 10/21: intubated, sedated on fentanyl and versed. On Nimbex. 10/25: off Nimbex. Mildly opening eyes today. 10/26: opening eyes more today, ?focusing 10/27: intubated, minimal eye opening. not following commands. 10/28: appears more awake, following commands, focusing and tracked. shook head no when asked if doing ok. 10/31: remains intubated, tracking more today, not following with extremities Labs, Micro, & Vital Signs Results Date Time Temp Pulse Resp B/P (MAP) Pulse Ox O2 Delivery O2 Flow Rate FiO2 10/31/16 07:27 100 35 10/31/16 07:27 35 10/31/16 06:00 98 10/31/16 04:00 35 10/31/16 04:00 99.2 96 19 136/82 (100) 100 10/31/16 04:00 96 10/31/16 02:00 104 10/31/16 01:36 101 119/78 10/31/16 00:17 100 35 10/31/16 00:00 99.4 96 17 116/75 (89) 100 10/31/16 00:00 35 10/31/16 00:00 96 10/30/16 22:00 98 10/30/16 20:00 99.5 110 17 130/83 (99) 100 10/30/16 20:00 35 10/30/16 20:00 110 10/30/16 19:48 100 35 10/30/16 18:00 111 10/30/16 16:06 100 35 10/30/16 16:00 35 10/30/16 16:00 97 10/30/16 16:00 99.8 97 22 126/80 (95) 100 10/30/16 14:00 97 10/30/16 12:00 96 35 10/30/16 12:00 99.9 101 20 128/71 (90) 97 Arterial Line 10/30/16 12:00 101 10/30/16 12:00 35 10/30/16 11:43 105 124/75 Constitutional Vital Signs Date Time Temp Pulse Resp B/P (MAP) Pulse Ox O2 Delivery O2 Flow Rate FiO2 10/31/16 07:27 100 35 10/31/16 07:27 35 10/31/16 06:00 98 10/31/16 04:00 35 10/31/16 04:00 99.2 96 19 136/82 (100) 100 10/31/16 04:00 96 10/31/16 02:00 104 10/31/16 01:36 101 119/78 10/31/16 00:17 100 35 10/31/16 00:00 99.4 96 17 116/75 (89) 100 10/31/16 00:00 35 10/31/16 00:00 96 10/30/16 22:00 98 10/30/16 20:00 99.5 110 17 130/83 (99) 100 10/30/16 20:00 35 10/30/16 20:00 110 10/30/16 19:48 100 35 10/30/16 18:00 111 10/30/16 16:06 100 35 10/30/16 16:00 35 10/30/16 16:00 97 10/30/16 16:00 99.8 97 22 126/80 (95) 100 10/30/16 14:00 97 10/30/16 12:00 96 35 10/30/16 12:00 99.9 101 20 128/71 (90) 97 Arterial Line 10/30/16 12:00 101 10/30/16 12:00 35 10/30/16 11:43 105 124/75 Review of Systems ROS Limitations: Intubated Physical Exam Intubated. Awake, eyes open, tracks left and right to command. CN: pupils 3-4 mm bilaterally Left flap sunken in Surgical incision is healing well Motor: not following to commands x 4 extremities Diffuse extremity edema Abdomen: soft Medications Current Medications Current Medications Medications (Trade) Dose Ordered Sig/Adali Route PRN Reason Start Time Stop Time Status Last Admin Dose Admin Chlorhexidine Gluconate (Peridex 0.12% Liq) 15 ml BID@08,20 MT 10/07/16 20:00 10/31/16 09:32 Levetriacetam 500 mg/Sodium Chloride 105 ml @ 400 mls/hr Q12H IV 10/08/16 06:00 10/31/16 05:11 Bisacodyl (Dulcolax Supp) 10 mg DAILY PRN RECTAL CONSTIPATION 10/07/16 18:30 Ondansetron HCl (Zofran Inj) 4 mg Q6H PRN IV NAUSEA OR VOMITING 10/07/16 18:30 Calcium Gluconate (Calcium Gluconate Inj) 1 gm UNSCH PRN IV SEE LABEL COMMENTS 10/07/16 18:30 10/16/16 10:00 Potassium Chloride 100 ml @ 50 mls/hr UNSCH PRN IV POTASSIUM LESS THAN 4 10/07/16 18:30 10/12/16 06:13 Magnesium Sulfate 4 gm/Sodium Chloride 108 ml @ 108 mls/hr UNSCH PRN IV MAGNESIUM LESS THAN 2 10/07/16 18:30 Acetaminophen (Tylenol) 650 mg Q4H PRN PO TEMP >100.4 10/07/16 18:30 10/12/16 18:15 Dextrose (D50w (Vial) Inj) 50 ml UNSCH PRN IV PUSH HYPOGLYCEMIA - SEE COMMENTS 10/07/16 19:15 10/28/16 17:42 Glucagon (Glucagon Inj) 1 mg UNSCH PRN OTHER HYPOGLYCEMIA-SEE COMMENTS 10/07/16 19:15 Propofol 100 ml @ 0 mls/hr TITRATE PRN IV Sedation 10/07/16 23:15 10/30/16 21:50 Nimodipine (Nimotop) 60 mg Q4HR PO 10/13/16 00:00 11/02/16 23:59 10/31/16 09:32 Vasopressin 40 units/Dextrose 100 ml @ 4.5 mls/hr [id number] IV 10/14/16 11:30 10/25/16 02:30 Fentanyl Citrate 250 ml @ 5 mls/hr TITRATE PRN IV SEDATION 10/14/16 15:00 10/30/16 17:39 Heparin Sodium (Porcine) (Heparin Inj) 5,000 units Q8HR SQ 10/14/16 22:00 10/31/16 05:12 Cisatracurium Besylate 100 mg/ Sodium Chloride 260 ml @ 11.24 mls/ hr TITRATE PRN IV TOF 1/4 10/15/16 13:00 10/21/16 12:59 Sodium Chloride (Sodium Chloride) 3 gm TID PO 10/15/16 13:15 10/30/16 17:40 Terbutaline Sulfate (Brethine Inj) 1 mg UNSCH PRN SQ FOR EXTRAVASATION PROTOCOL 10/15/16 15:45 Magnesium Oxide (Mag-Ox) 800 mg UNSCH PRN PO For Magnesium 1.2 - 1.6 mg/dL 10/16/16 09:15 Magnesium Sulfate 4 gm/Sodium Chloride 100 ml @ 50 mls/hr UNSCH PRN IV For Magnesium 0.9 - 1.1 mg/dL 10/16/16 09:15 Magnesium Sulfate 2 gm/Sodium Chloride 100 ml @ 50 mls/hr UNSCH PRN IV For Magnesium 1.2 - 1.6 mg/dL 10/16/16 09:15 Potassium Chloride 100 ml @ 50 mls/hr Q2H PRN IV For Potassium 2.8 - 3.2 mEq/L 10/16/16 09:15 10/16/16 12:22 Potassium Chloride 100 ml @ 50 mls/hr Q2H PRN IV For Potassium 3.3 - 3.5 mEq/L 10/16/16 09:15 Potassium Chloride 100 ml @ 50 mls/hr Q2H PRN IV For Potassium 2.8 - 3.2 mEq/L 10/16/16 09:15 10/27/16 13:26 Potassium Chloride 100 ml @ 25 mls/hr UNSCH PRN IV For Potassium 3.3 - 3.5 mEq/L 10/16/16 09:15 10/30/16 06:06 Potassium Phosphate (K-Phos) 2,000 mg Q4H PRN PO For Phosphorus < 2.5 mg/dL 10/16/16 09:15 Potassium Phosphate (K-Phos) 2,000 mg UNSCH PRN PO/TUBE SEE LABEL COMMENTS 10/16/16 09:15 Potassium Phosphate 30 mmol/ Sodium Chloride 260 ml @ 42 mls/hr UNSCH PRN IV SEE LABEL COMMENTS 10/16/16 09:15 10/24/16 20:39 Sodium Phosphate 30 mmol/Sodium Chloride 250 ml @ 42 mls/hr UNSCH PRN IV For Phosphorus < 2.5 mg/dL 10/16/16 09:15 10/22/16 06:46 Norepinephrine Bitartrate 16 mg/ Sodium Chloride 250 ml @ 1.87 mls/hr TITRATE PRN IV Blood pressure management 10/17/16 10:15 10/20/16 01:07 Calcium Gluconate 1 gm/Sodium Chloride 110 ml @ 110 mls/hr UNSCH PRN IV For Protein Corrected Calcium 9/5/17 09:45 10/18/16 10:22 Lansoprazole (Prevacid Odt) 30 mg DAILY NG 10/20/16 09:00 10/31/16 09:32 Sodium Chloride (NS Flush) 2 ml UNSCH PRN IV FLUSH FLUSH AFTER USING IV ACCESS 10/19/16 09:45 Sodium Chloride (NS Flush) 2 ml BID IV FLUSH 10/19/16 21:00 10/31/16 09:32 Artificial Tears (Tears Naturale Opth Soln) 1 drop TID EACH EYE 10/19/16 13:00 10/30/16 17:41 Albuterol Sulfate (Albuterol Neb) 2.5 mg Q2HR NEB PRN INH SOB/WHEEZING 10/19/16 09:45 Miscellaneous Information 1 [id number] XX 10/19/16 09:45 Chlorhexidine Gluconate (Chlorhexidine 2% Cloth) Taper DAILY@04 TOP 10/20/16 04:00 10/16/17 03:59 10/23/16 04:20 Chlorhexidine Gluconate (Chlorhexidine 2% Cloth) 3 pack UNSCH PRN TOP HYGIENIC CARE 10/19/16 09:45 Docusate Sodium (Colace Liq) 100 mg Q12HR PO 10/19/16 21:00 10/30/16 07:55 Sennosides (Senna Liq) 8.8 mg BID PO 10/19/16 21:00 10/29/16 20:15 Polyethylene Glycol (Miralax) 17 gm BID OG-TUBE 10/19/16 21:00 10/29/16 20:15 Lactulose (Lactulose Liq) 30 ml BID OG-TUBE 10/20/16 21:00 10/31/16 09:32 Insulin Aspart (NovoLOG SUPPLEMENTAL SCALE) 1 Q4HR SQ 10/20/16 12:00 10/27/16 11:57 Multivitamins 10 ml/Folic Acid 1 mg/Amino Acids/ Electrolytes/ Dextrose 2,010.2 ml @ 30 mls/hr Q24H IV-CENTRAL 10/20/16 20:00 10/28/16 20:01 Fat Emulsion Intravenous 250 ml @ 10 mls/hr Q24H IV-CENTRAL 10/20/16 20:00 10/29/16 19:58 Milrinone Lactate 20 mg/Sodium Chloride 100 ml @ 9.79 mls/hr [id number] IV 10/22/16 10:23 10/30/16 03:35 Phenytoin Sodium (Dilantin Inj) 100 mg Q8HR IV 10/25/16 22:00 10/31/16 05:12 Furosemide (Lasix Inj) 40 mg DAILY IV PUSH 10/28/16 09:00 10/31/16 09:32 Insulin Detemir (Levemir Inj) 8 units Q12HR SQ 10/28/16 21:00 10/29/16 08:28 Protein (Beneprotein Powder) 1 pack TID G-TUBE 10/29/16 13:00 10/31/16 09:00 Diltiazem HCl (Cardizem) 60 mg Q6HR PO 10/29/16 13:00 10/31/16 05:11 Medical Decision Making MDM Remarks 56 y/o male with 1. Subarachnoid hemorrhage, status post coiling posterior communicating artery aneurysm. s/p left decompressive craniectomy Vasospasms, s/p endovascular verapamil infusions 10/13/16, 10/17/16, 10/19/16. Neurologically exam improving, more awake and following commands. 2. Possible seizures. Remains on Keppra and Cerebyx 3. Respiratory failure, remains intubated Plan Plan Remarks cont critical care management daily PT and OT clear with trach and PEG from NRS standpoint follow up neuro exam Malinda Hines Oct 31, 2016 10:08
[2016-10-31] MEDS: SODIUM CHLORIDE 1 GRAM TAB PO SCH ×3 (10:32→17:33)
--- NOTE | 2016-10-31 10:52 | HHI.CCPN ---
Subjective Remarks/Hospital Course 10/07: 56-year-old male presents with intracranial bleed. Patient was transferred from [facility] at [facility]. As per the paramedics and the nurse who assisted the patient said that patient earlier this morning was coming down the stairs when he started feeling some left-sided weakness and numbness. He called 911 and by the time EMS arrived they detected some deficit and called a stroke alert. Patient was taken to [facility]. When patient arrived his mental status started to decline and he was intubated emergently in the ER. A CAT scan of the head showed subarachnoid and subdural bleed. He was taking emergently to an angio suite for coiling of the aneurysm and later on to OR for subdural hematoma evacuation. 10/08: Remains sedated, orally intubated on mechanical ventilation. Arouses off sedation and following commands with both upper extremities earlier. Ventriculostomy in place. ICP 7, CPP mid 80s. 10/09: Remains sedated, orally intubated on mechanical ventilation. Arouses off sedation and follows commands with both upper extremities. Ventriculostomy in place. 10/10: Remains sedated, orally intubated on mechanical ventilation. Arouses off sedation and follows commands and both upper extremities. Ventriculostomy in place. ICP 5. Failed C Pap trial yesterday. 10/11: Extubated on 10/10, tolerating well. Awake and alert. Appears confused, moving all 4 extremities. Ventriculostomy discontinued today by neurosurgery 10/13: Patient has developed severe vasospasm at the left MCA territory on TCD's that was treated with IV route verapamil 10/14: patient extubated overnight. was originally following commands and neuro intact. TCDs this morning with increase LIs over yesterday, particularly Left MCA territory. On my evaluation early this morning, patient was aphasic, not moving the right side of his body, not following commands. SBP 140s at that time. net 2L negative/24h and uop almost 1L/hr at the time. I immediately bolused with 2L NS iv, placed arterial and central lines, started phenylephrine , increased SBP to goal 200 - 220 mmHg. called interventional neuroradiology and accompanied patient down personally to IR for IA verapamil again. I remained with the patient managing his hemodynamics down in IR and providing anxiolysis IV. I accompanied patient back up to [facility] where patient again was neuro intact and following commands. Sodium downtrending to 135 and urine studies and serum osms suggestive of urine sodium losses and high uop. added Florinef to mitigate sodium losses, and increased mivf to 500cc/hr to maintain euvolemia. later in the day patient decompensated requiring intubation for hyoxemia, cxr suggestive of pulmonary edema. 2d echo with evidence of EF 40%, septal hypokinesis, moderate MR. On levo, vaso, phenylephrine. difficult to get to goal SBP 200 mmHg, likely due to myocardial dysfunction. decreased goal to 180 - 200 mmHg to balance cardiac vs. neurologic goals. 10/15 Patient was discussed with Dr. Sullivan at shift change. Isuprel was initiated in effort to improve cardiac output as dobutamine not available and concerned with use of milrinone given long half life. Systolic blood pressure was relatively stable with perhaps some modest improvement from 170s to 180s for several hours after initiation. Notified when patient became abruptly hypotensive despite vasopressin, levophed 20 mcg/min, Greyson-Synephrine 300 mcg/m. He was also hypoxemic with sats in 80s despite PCV with PEEP 8 and FiO2 100%, respiratory rate in the 30s. He had decreased breath sounds bilaterally and was concerned for air trapping so removed from mechanical ventilation and bagged without improvement. Placed patient back on mechanical ventilation and provide recruitment maneuvers and increased PEEP to 12 which resulted in improvement of sats to 88% to 92%. Ordered Flolan. Discontinued isuprel and initiated epinephrine. R radial art line would not draw blood . Performed u/s guided femoral artery stick to confirm hypoxemia on ABG given poor wave form on pulse ox and PaO2 was 58. Placed new L radial art line and this resulted in ~ 30 point increase in SBP relative to prior line but patient ultimately on vasopressin, levophed 30 micrograms per minute, Greyson-Synephrine 300 micrograms per minute, epinephrine 12 mcg/min and unable to maintain target pressure (SBP in 150s). Given calcium chloride. patient with shaking movements all extremities, pupils 2mm and sluggish, no eye deviation. Rigors seemed most likely but unable to emergently rule out seizures so loaded with fosphenytoin to avoid secondary injury from seizure activity. WBC increasing and concern for HCAP so pancultured and placed on cefepime, vancomycin, azithromycin. Hydrocortisone 100 mg IV every 8 hours initiated due to concern for septic shock in a patient who has been refractory to all other above measures. Patient is to hemodynamically unstable and hypoxic for transport for neurologic imaging. Urine output has declined to 180-200 ML's per hour. Back off maintenance IV fluids to 200 ML's per hour. Bedside echo demonstrates decreased LV function with normal RV contractility and collapsible IVC suggesting ongoing maintenance fluid administration is appropriate. 10/15 additional visit: continued to deteriorate throughout the day. Seen multiple times. hypoxic on 100% fio2, flolan. required nimbex drip to maintain. repeat bedside critical care ultrasound still demonstrates severe LV dysfunction , decompressed RV, IVC more dilated than previous echo overnight, however still with respiratory variation. femoral arterial line placed with better waveform and higher pressure (likely SVR too high to allow accurate measurement of radial pressure). Pulse contour analysis without stroke volume variation, CI 3.6. SV 52mL. trialed additional albumin without improvement in hemodynamics. uop slower than before, but still significant salt wasting in the urine- sodium dropped to 125 from 132 despite already on 3% nacl infusion and aggressive sodium replacements. forced to give 23% nacl and salt tabs. declining clinically despite maximal therapy. 10/16: continues to be maximally critically ill. LV dysfunction persists. starting to get volume overloaded, but given concern for ongoing cerebral vasospasm, unable to actively diurese patient. sodium wasting persists, but uop downtrending slightly. very hypokalemic today, likely due to steroids. remains intubated, sedated, paralyzed, on flolan. CXR today appears worse with worsening airspace disease. Lactate remains slightly elevated, confirming persistent shock. 10/17: Lung infiltrates dense bilaterally, reflected in shunting and problems with oxygenation. Developed vasospasm on TCDs and required angiogram and intra- arterial verapamil again today. 10/18: SBP 160 - 170 range. FiO2 0.55. BNP > 5000. Not tolerating attempts at maintaining higher BP due to worsening heart failure. Several episodes of vasospasm. Watch daily TCDs closely. Sputum no growth. 10/19: Tmax 99.8. Currently 99. Remains on 4 vasopressors and epoprostenol 10/20: Yesterday. Returned IR for intra-arterial calcium channel jose infusion for vasospasm. Transcranial Dopplers today Still pending. Remains on significant vasopressor support. 10/21: Good response to diuresis, check BNP. TCDs pending. Heart failure remains a major problem. 10/22: CVP 21 - 22, finger tips blue, digits pale white despite high dose milrinone dilation. Greyson and vaso much reduced. Will try diltiazem gtt for digital ischemia. Urine remains > 200/hr and proximal limbs are well perfused. This digital ischemia appears to be a local phenomenon ala Raynaud's. New subcutaneous emphysema right anterior chest wall. 10/23: Old CVL removed. Fingertips remain marginal, some necrotic despite diltiazem and milrinone treatment for digital ischemia. Cardiac output > 7 liters/min and urine copious, confirming good perfusion pressure and flow. This continues to be a local phenomenon of the digits ala Raynaud's. We are trying to wean vasopressors off but are required to maintaining a cerebral perfusion pressure suitable for the treatment of aneurysmal subarachnoid bleed. Frankly, the importance of brain function eclipses fingertips. 10/24: Afebrile. Well perfused except for index finger left hand, few tips fingers right. Arms and hands warmer with resolving circumferential edema. Diltiazem and milrinone gtt continue. Greyson to 10 mics/min. 10/25: Digits are warm and well perfused except left index and right 4th fingertips; demarcated and not viable. Dry. Diltiazem and milrinone infusions continue to help reverse digital ischemia. 10/26: Forced diuresis continues and BP remains nicely elevated. Hands and digits warm aside from left index and right 4th fingertips which have demarcated. 10/27: Good response to diuretics. Perfusion pressure and documented flow excellent. Continue to wean vent. 10/28: Start SBTs. Fluid balance back toward normal. 10/29: Tolerating SBTs. Lowering sedation. Edema resolving. 10/30: Tolerating tube feeds, will taper off TPN and remove central line. Continue diuretics. Subjective 10/31: net -3L over 24h. mental status at baseline. tolerating CPAP, but does not have the mental status to protect airway. will likely need trach/peg. placement will be a problem due to lack of funding. Objective Vital Signs Date Time Temp Pulse Resp B/P (MAP) Pulse Ox O2 Delivery O2 Flow Rate FiO2 10/31/16 07:27 100 35 10/31/16 06:00 98 10/31/16 04:00 99.2 19 136/82 (100) 10/30/16 08:07 Ventilator Intake and Output 10/31/16 10/31/16 11/01/16 08:00 16:00 00:00 Intake Total 1109 ml Output Total 1550 ml Balance -441 ml Result Diagram: 10/31/16 0508 10/31/16 0508 Imaging Last Impressions Chest X-Ray 10/20/16 0000 Signed Impressions: Service Date/Time: October 03:47 - CONCLUSION: 1. Stable tubes and lines. 2. Stable bilateral lower lung zone airspace disease. 3. Stable small right pleural effusion. 4. No significant interval change. Kev Vergara MD Transcranial Doppler Study Complete 10/19/16 0600 Signed Impressions: Service Date/Time: Wednesday, October 19, 2016 08:02 - CONCLUSION: Suspect developing right MCA vasospasm Yosvany Polk MD Liver Ultrasound 10/19/16 0000 Signed Impressions: Service Date/Time: Wednesday, October 19, 2016 11:20 - CONCLUSION: 1. Sludge filled gallbladder with thickened wall. 2. Moderate size bilateral pleural effusions and mild upper abdominal ascites. Santos Vazquez MD Head CT 10/17/16 0000 Signed Impressions: Service Date/Time: Monday, October 17, 2016 15:06 - CONCLUSION: Ventricles are slightly larger without ventriculostomy. Edema in the left hemisphere the brain herniating through the operative site. Remington Woodward MD FACR Cerebral Arteriogram 10/17/16 0000 Signed Impressions: Service Date/Time: Monday, October 17, 2016 00:00 - CONCLUSION: 1. Uncompensated spasmolysis of the left middle cerebral artery Harvey Morejon MD Infusion Non-thrombolysis 10/14/16 1103 Signed Impressions: Service Date/Time: Friday, October 14, 2016 10:21 - CONCLUSION: 1. Uncomplicated infusion for spasmolysis Harvey Morejon MD Neck CTA 10/07/16 0000 Signed Impressions: Service Date/Time: Friday, October 07, 2016 15:03 - CONCLUSION: 1. Mild carotid bulb atherosclerotic calcification bilaterally. However, no significant stenosis is present in either internal carotid artery. 2. Paranasal sinus mucoperiosteal thickening. 3. Please refer to brain CTA report for description of the intracranial findings. Yosvany Ramirez MD Head CTA 10/07/16 0000 Signed Impressions: Service Date/Time: Friday, October 07, 2016 15:03 - CONCLUSION: 1. 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 2. Large left subdural hematoma measuring 1.3 cm in depth with a significant, 1.6 cm left to right subfalcine shift. Joni Shelton MD Objective Remarks GENERAL: 56-year-old male, currently sedated and orotracheally intubated/critically ill HEAD: Status post left craniectomy. Incision is clean dry and intact EYES: About 3 mm bilaterally and reactive NECK: Supple, trachea midline. orotracheal tube in place. CARDIOVASCULAR: Tachycardic, RR. S1, S2. No S4. 2/6 murmur left lower sternal border RESPIRATORY: Diminished breath sounds bilateral lower lobes. Scattered rhonchi throughout, less so. GASTROINTESTINAL: Abdomen soft, non-tender, nondistended. Hypoactive bowel sounds are appreciated MUSCULOSKELETAL: Ischemic changes to left index finger tip and right 4th fingertip, skin marginal at best. Other digits have remained warm and well perfused. Arms and legs warm, toes all well-perfused. NEURO EXAM: Opens eyes to loud voice. Intermittently squeezes left hand to command. Breathes with good strength. Procedures 10/13 Four-vessel cerebral angiography with verapamil treatment of vasospasm A/P Assessment and Plan Neuro/Psych Status post left frontotemporal parietal craniectomy 10/08 for evacuation subdural hematoma/duraplasty Left subdural hematoma - 1.3 cm with 1.6 shift left to right Subarachnoid hemorrhage contents 5, Carroll grade 4 - left P-comm status post 4 coiling 10/08 - TCD's daily: 10/19 - vasospasm -intra-arterial verapamil - Nimodipine 60 mg every 4 hours for vasospasm to complete 21 days. Initiated - Levetiracetam 500 mg IV twice a day for seizure prophylaxis - 10/13 and 10/14 and 10/17) 10/19 left MCA territory vasospasm, status post successful verapamil treatment by IR with 20 mg verapamil - SBP goal 180 - 220 mmHg, although only able to press to 160 on maximal therapy given cardiac dysfunction. - check phenytoin level -> 7. - 10/17 CT brain - less hemisphere edema with herniation through left craniotomy site and CT brain for today - Dr. Perry/neurosurgery Respiratory: Acute hypoxic Respiratory failure-ARDS- resolving. Noncardiogenic/neurogenic pulmonary edema - Ventilator bundle, nebs, hob at 30 degrees. - Albuterol/age-appropriate versus every 6 hours with albuterol aerosols every 2 hours. Dyspnea -- continue daily SBTs. Cardiovascular: Severe shock - septic and cardiogenic- resolved. Severe LV dysfunction secondary to SAH - persistent. Elevated troponin- secondary to SAH, unlikely to be ACS. - resolved. Pulmonary hypertension - continue diuresis. Echocardiogram 10/14/16 revealed EF 40-45%. Septal hypokinesis. Moderate MR. Severe pulmonary hypertension with pulmonary artery pressures estimated 61 mmHg Cardiac CO 6.4 SVV 8. Renal: Cerebral Salt Wasting/SIADH -- Strict I/Os - BNP > 5000 on 10/18 See below. Creatinine currently within normal limits Resolved FEN/GI: Severe hyponatremia Hypokalemia Elevated transaminases Hyperammonia -Currently on sodium chloride 3gm po TID - ICU electrolyte protocol - aggressively replace potassium losses. - Lansoprazole 30 mg by tube daily for GI prophylaxis -Docusate sodium 100 mg twice a day, senna liquid 8.6 mg twice a day and polyethylene glycol 3350 17 g twice a day for bowel regimen Lactulose 30 cc twice a day. Check ammonia level today will attempt to remove rectal tube if possible. will hold bowel regimen. will d/ c lactulose if ammonia is downtrending. Heme/ID: Septic Shock- resolved. Possible HCAP Digital Ischemia with necrosis - Local phenomenon. CO always hyperdynamic range, urine copious. - Diltiazem and milrinone infusions continuous for 6 days now. -- Digits have demarcated. D/C milrinone and convert cardizem to PO (for digital ischemia, Raynaud's) Pertinent cultures 10/15 - blood cultures - 1 out of 4 anaerobic gram-negative cocci possibly Veillonella 10/15 - sputum - beta strep not A, strep species 10/19 cultures NG 10/21 1/4 bottles blood cultures coag negative staph. Endocrine: Presumed Adrenal Insufficiency -Discontinued fludrocortisone 10/18. Monitor sodium 6 hours. Sliding-scale insulin with Novulog -Accu-Cheks every 4 hours to maintain euglycemia [place] protocol. d/c levemir bid. Taper off cortisone -> done Prophylaxis: GI Prophylaxis - lansoprazole DVT Prophylaxis-- SCDs, heparin subcutaneous Lines: - 10/14 right SC TLC, removed 10/22 - 10/14 right radial art line, removed 10/14 - 10/15 left radial art line, removed 10/16 - 10/15 left femoral art line - 10/22 left groin triple lumen placed, d/c 10/30 - Erica Overall impression: Improved neurological status. Digital ischemia has improved. Milrinone improved CO but ischemia to two fingertips persists. BNP elevated today consistent with acute on chronic heart failure.. Urine output continues to confirm good renal perfusion. He will lose fingertips due to heart failure and local digital vasospasm. Aside from demarcated fingers he is warm and well perfused. Will slowly decrease diltiazem and milrinone. Continue SBTs. Start TFs. The patient's digital ischemia developed when he had a cardiac output over 8.0 liters/min, CVP was over 20 mm Hg, and urine over 75 ml/hr for many days. BNP was elevated at 777. His hands and feet were warm but the fingers and toes became cold, white, nearly cadaveric. Neosynephrine was only vasopressor and it was at 30 units/min only. We stopped it immediately and started milrinone and cardizem iv infusions. Most fingers and toes responded well to the vascular dilators but a few digits demarcated and became necrotic. Anticoagulation was not an option in face of recent aneurysm rupture and gastritis. Patients with this degree of digital ischemia (severe Raynaud's) usually have an underlying illness such as malignancy, mixed connective tissue disorder, collagen vascular disease, rheumatoid disease, etc. This workup can progress after he has cleared exogenous steroids which were just stopped. He's in a pretty revved up inflammatory state now and the lab values will be altered by it. Patient likely cannot control airway and will likely need trach to secure airway given persistently poor neuro status. otherwise is ready for placement. Walter Sullivan MD Oct 31, 2016 10:52
[2016-10-31] MEDS: PROPOFOL 1000 MG/100 ML IV PRN ×2 (12:18→19:57)
[2016-10-31] MEDS: levETIRAcetam 500 MG/5 ML UDC NG SCH (20:16)
[2016-11-01] VITALS (19 sets, daily range): BP systolic 106–140; BP diastolic 61–79; PULSE 85–110; RESP 16–28; TEMP 97.5–99.1; O2SAT 100
[2016-11-01] MEDS: CHLORHEXIDINE GLUCONATE 2 % 1 PACK (2 CLOTHS) TOP SCH (04:00)
[2016-11-01] MEDS: INSULIN ASPART SUPPLEMENTAL SCALE SQ SCH ×6 (04:00→23:30)
[2016-11-01] MEDS: niMODipine 30 MG CAP PO SCH ×6 (04:36→22:34)
[2016-11-01] MEDS: PHENYTOIN INJ 100 MG/2 ML VIAL IV SCH (05:30)
[2016-11-01] MEDS: HEPARIN SODIUM - SQ 10,000 UNITS/ML VIAL SQ SCH ×3 (05:30→20:47)
[2016-11-01] MEDS: DILTIAZEM HCL 60 MG TAB PO SCH ×4 (05:30→22:34)
[2016-11-01] MEDS: PROPOFOL 1000 MG/100 ML IV PRN (05:31)
[2016-11-01] MEDS ORDERED: fentaNYL CITRATE 250 MCG/5 ML AMP IV PUSH ONE (07:45)
[2016-11-01] MEDS ORDERED: CISATRACURIUM BESYLATE 200 MG/20 ML VIAL IV ONE (07:45)
[2016-11-01] MEDS ORDERED: MIDAZOLAM HCL 5 MG/ML VIAL (1 ML) IV PUSH ONE (07:45)
--- NOTE | 2016-11-01 07:53 | HHI.CCPN ---
Subjective Remarks/Hospital Course 10/07: 56-year-old male presents with intracranial bleed. Patient was transferred from [facility] at [facility]. As per the paramedics and the nurse who assisted the patient said that patient earlier this morning was coming down the stairs when he started feeling some left-sided weakness and numbness. He called 911 and by the time EMS arrived they detected some deficit and called a stroke alert. Patient was taken to [facility]. When patient arrived his mental status started to decline and he was intubated emergently in the ER. A CAT scan of the head showed subarachnoid and subdural bleed. He was taking emergently to an angio suite for coiling of the aneurysm and later on to OR for subdural hematoma evacuation. 10/08: Remains sedated, orally intubated on mechanical ventilation. Arouses off sedation and following commands with both upper extremities earlier. Ventriculostomy in place. ICP 7, CPP mid 80s. 10/09: Remains sedated, orally intubated on mechanical ventilation. Arouses off sedation and follows commands with both upper extremities. Ventriculostomy in place. 10/10: Remains sedated, orally intubated on mechanical ventilation. Arouses off sedation and follows commands and both upper extremities. Ventriculostomy in place. ICP 5. Failed C Pap trial yesterday. 10/11: Extubated on 10/10, tolerating well. Awake and alert. Appears confused, moving all 4 extremities. Ventriculostomy discontinued today by neurosurgery 10/13: Patient has developed severe vasospasm at the left MCA territory on TCD's that was treated with IV route verapamil 10/14: patient extubated overnight. was originally following commands and neuro intact. TCDs this morning with increase LIs over yesterday, particularly Left MCA territory. On my evaluation early this morning, patient was aphasic, not moving the right side of his body, not following commands. SBP 140s at that time. net 2L negative/24h and uop almost 1L/hr at the time. I immediately bolused with 2L NS iv, placed arterial and central lines, started phenylephrine , increased SBP to goal 200 - 220 mmHg. called interventional neuroradiology and accompanied patient down personally to IR for IA verapamil again. I remained with the patient managing his hemodynamics down in IR and providing anxiolysis IV. I accompanied patient back up to [facility] where patient again was neuro intact and following commands. Sodium downtrending to 135 and urine studies and serum osms suggestive of urine sodium losses and high uop. added Florinef to mitigate sodium losses, and increased mivf to 500cc/hr to maintain euvolemia. later in the day patient decompensated requiring intubation for hyoxemia, cxr suggestive of pulmonary edema. 2d echo with evidence of EF 40%, septal hypokinesis, moderate MR. On levo, vaso, phenylephrine. difficult to get to goal SBP 200 mmHg, likely due to myocardial dysfunction. decreased goal to 180 - 200 mmHg to balance cardiac vs. neurologic goals. 10/15 Patient was discussed with Dr. Sullivan at shift change. Isuprel was initiated in effort to improve cardiac output as dobutamine not available and concerned with use of milrinone given long half life. Systolic blood pressure was relatively stable with perhaps some modest improvement from 170s to 180s for several hours after initiation. Notified when patient became abruptly hypotensive despite vasopressin, levophed 20 mcg/min, Greyson-Synephrine 300 mcg/m. He was also hypoxemic with sats in 80s despite PCV with PEEP 8 and FiO2 100%, respiratory rate in the 30s. He had decreased breath sounds bilaterally and was concerned for air trapping so removed from mechanical ventilation and bagged without improvement. Placed patient back on mechanical ventilation and provide recruitment maneuvers and increased PEEP to 12 which resulted in improvement of sats to 88% to 92%. Ordered Flolan. Discontinued isuprel and initiated epinephrine. R radial art line would not draw blood . Performed u/s guided femoral artery stick to confirm hypoxemia on ABG given poor wave form on pulse ox and PaO2 was 58. Placed new L radial art line and this resulted in ~ 30 point increase in SBP relative to prior line but patient ultimately on vasopressin, levophed 30 micrograms per minute, Greyson-Synephrine 300 micrograms per minute, epinephrine 12 mcg/min and unable to maintain target pressure (SBP in 150s). Given calcium chloride. patient with shaking movements all extremities, pupils 2mm and sluggish, no eye deviation. Rigors seemed most likely but unable to emergently rule out seizures so loaded with fosphenytoin to avoid secondary injury from seizure activity. WBC increasing and concern for HCAP so pancultured and placed on cefepime, vancomycin, azithromycin. Hydrocortisone 100 mg IV every 8 hours initiated due to concern for septic shock in a patient who has been refractory to all other above measures. Patient is to hemodynamically unstable and hypoxic for transport for neurologic imaging. Urine output has declined to 180-200 ML's per hour. Back off maintenance IV fluids to 200 ML's per hour. Bedside echo demonstrates decreased LV function with normal RV contractility and collapsible IVC suggesting ongoing maintenance fluid administration is appropriate. 10/15 additional visit: continued to deteriorate throughout the day. Seen multiple times. hypoxic on 100% fio2, flolan. required nimbex drip to maintain. repeat bedside critical care ultrasound still demonstrates severe LV dysfunction , decompressed RV, IVC more dilated than previous echo overnight, however still with respiratory variation. femoral arterial line placed with better waveform and higher pressure (likely SVR too high to allow accurate measurement of radial pressure). Pulse contour analysis without stroke volume variation, CI 3.6. SV 52mL. trialed additional albumin without improvement in hemodynamics. uop slower than before, but still significant salt wasting in the urine- sodium dropped to 125 from 132 despite already on 3% nacl infusion and aggressive sodium replacements. forced to give 23% nacl and salt tabs. declining clinically despite maximal therapy. 10/16: continues to be maximally critically ill. LV dysfunction persists. starting to get volume overloaded, but given concern for ongoing cerebral vasospasm, unable to actively diurese patient. sodium wasting persists, but uop downtrending slightly. very hypokalemic today, likely due to steroids. remains intubated, sedated, paralyzed, on flolan. CXR today appears worse with worsening airspace disease. Lactate remains slightly elevated, confirming persistent shock. 10/17: Lung infiltrates dense bilaterally, reflected in shunting and problems with oxygenation. Developed vasospasm on TCDs and required angiogram and intra- arterial verapamil again today. 10/18: SBP 160 - 170 range. FiO2 0.55. BNP > 5000. Not tolerating attempts at maintaining higher BP due to worsening heart failure. Several episodes of vasospasm. Watch daily TCDs closely. Sputum no growth. 10/19: Tmax 99.8. Currently 99. Remains on 4 vasopressors and epoprostenol 10/20: Yesterday. Returned IR for intra-arterial calcium channel jose infusion for vasospasm. Transcranial Dopplers today Still pending. Remains on significant vasopressor support. 10/21: Good response to diuresis, check BNP. TCDs pending. Heart failure remains a major problem. 10/22: CVP 21 - 22, finger tips blue, digits pale white despite high dose milrinone dilation. Greyson and vaso much reduced. Will try diltiazem gtt for digital ischemia. Urine remains > 200/hr and proximal limbs are well perfused. This digital ischemia appears to be a local phenomenon ala Raynaud's. New subcutaneous emphysema right anterior chest wall. 10/23: Old CVL removed. Fingertips remain marginal, some necrotic despite diltiazem and milrinone treatment for digital ischemia. Cardiac output > 7 liters/min and urine copious, confirming good perfusion pressure and flow. This continues to be a local phenomenon of the digits ala Raynaud's. We are trying to wean vasopressors off but are required to maintaining a cerebral perfusion pressure suitable for the treatment of aneurysmal subarachnoid bleed. Frankly, the importance of brain function eclipses fingertips. 10/24: Afebrile. Well perfused except for index finger left hand, few tips fingers right. Arms and hands warmer with resolving circumferential edema. Diltiazem and milrinone gtt continue. Greyson to 10 mics/min. 10/25: Digits are warm and well perfused except left index and right 4th fingertips; demarcated and not viable. Dry. Diltiazem and milrinone infusions continue to help reverse digital ischemia. 10/26: Forced diuresis continues and BP remains nicely elevated. Hands and digits warm aside from left index and right 4th fingertips which have demarcated. 10/27: Good response to diuretics. Perfusion pressure and documented flow excellent. Continue to wean vent. 10/28: Start SBTs. Fluid balance back toward normal. 10/29: Tolerating SBTs. Lowering sedation. Edema resolving. 10/30: Tolerating tube feeds, will taper off TPN and remove central line. Continue diuretics. 10/31: net -3L over 24h. mental status at baseline. tolerating CPAP, but does not have the mental status to protect airway. will likely need trach/peg. placement will be a problem due to lack of funding. Subjective 11/01: no changes or improvements. discussed with yesterday and she "does not want any more setbacks" and would prefer trach versus trial of extubation. I agree with her assessment. plan for trach today. placement is still a significant problem. net -2L/24h. Objective Vital Signs Date Time Temp Pulse Resp B/P (MAP) Pulse Ox O2 Delivery O2 Flow Rate FiO2 11/01/16 06:00 89 11/01/16 04:01 100 35 11/01/16 04:00 99.1 16 107/77 (87) 10/30/16 08:07 Ventilator Intake and Output 11/01/16 11/01/16 11/02/16 08:00 16:00 00:00 Intake Total 331 ml Output Total 875 ml Balance -544 ml Result Diagram: 10/31/16 0508 10/31/16 0508 Imaging Last Impressions Chest X-Ray 10/20/16 0000 Signed Impressions: Service Date/Time: October 03:47 - CONCLUSION: 1. Stable tubes and lines. 2. Stable bilateral lower lung zone airspace disease. 3. Stable small right pleural effusion. 4. No significant interval change. Kev Vergara MD Transcranial Doppler Study Complete 10/19/16 0600 Signed Impressions: Service Date/Time: Wednesday, October 19, 2016 08:02 - CONCLUSION: Suspect developing right MCA vasospasm Yosvany Polk MD Liver Ultrasound 10/19/16 0000 Signed Impressions: Service Date/Time: Wednesday, October 19, 2016 11:20 - CONCLUSION: 1. Sludge filled gallbladder with thickened wall. 2. Moderate size bilateral pleural effusions and mild upper abdominal ascites. Santos Vazquez MD Head CT 10/17/16 0000 Signed Impressions: Service Date/Time: Monday, October 17, 2016 15:06 - CONCLUSION: Ventricles are slightly larger without ventriculostomy. Edema in the left hemisphere the brain herniating through the operative site. Remington Woodward MD FACR Cerebral Arteriogram 10/17/16 0000 Signed Impressions: Service Date/Time: Monday, October 17, 2016 00:00 - CONCLUSION: 1. Uncompensated spasmolysis of the left middle cerebral artery Harvey Morejon MD Infusion Non-thrombolysis 10/14/16 1103 Signed Impressions: Service Date/Time: Friday, October 14, 2016 10:21 - CONCLUSION: 1. Uncomplicated infusion for spasmolysis Harvey Morejon MD Neck CTA 10/07/16 0000 Signed Impressions: Service Date/Time: Friday, October 07, 2016 15:03 - CONCLUSION: 1. Mild carotid bulb atherosclerotic calcification bilaterally. However, no significant stenosis is present in either internal carotid artery. 2. Paranasal sinus mucoperiosteal thickening. 3. Please refer to brain CTA report for description of the intracranial findings. Yosvany Ramirez MD Head CTA 10/07/16 0000 Signed Impressions: Service Date/Time: Friday, October 07, 2016 15:03 - CONCLUSION: 1. 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 2. Large left subdural hematoma measuring 1.3 cm in depth with a significant, 1.6 cm left to right subfalcine shift. Joni Shelton MD Objective Remarks GENERAL: 56-year-old male, currently sedated and orotracheally intubated/critically ill HEAD: Status post left craniectomy. Incision is clean dry and intact EYES: About 3 mm bilaterally and reactive NECK: trachea midline. orotracheal tube in place. CARDIOVASCULAR: Tachycardic, RR. RESPIRATORY: Diminished breath sounds bilateral lower lobes. GASTROINTESTINAL: Abdomen soft, non-tender, nondistended. MUSCULOSKELETAL: Ischemic changes to left index finger tip and right 4th fingertip, skin marginal at best. Other digits have remained warm and well perfused. Arms and legs warm, toes all well-perfused. NEURO EXAM: Opens eyes to loud voice. Intermittently squeezes left hand to command. Breathes with good strength. Procedures 10/13 Four-vessel cerebral angiography with verapamil treatment of vasospasm A/P Assessment and Plan Neuro/Psych Status post left frontotemporal parietal craniectomy 10/08 for evacuation subdural hematoma/duraplasty Left subdural hematoma - 1.3 cm with 1.6 shift left to right Subarachnoid hemorrhage contents 5, Carroll grade 4 - left P-comm status post 4 coiling 10/08 - TCD's daily: 10/19 - vasospasm -intra-arterial verapamil - Nimodipine 60 mg every 4 hours for vasospasm to complete 21 days. Initiated - Levetiracetam 500 mg per tube twice a day with phenytoin 100mg per tube q8h. - 10/13 and 10/14 and 10/17) 10/19 left MCA territory vasospasm, status post successful verapamil treatment by IR with 20 mg verapamil - SBP goal 180 - 220 mmHg, although only able to press to 160 on maximal therapy given cardiac dysfunction. - 10/17 CT brain - less hemisphere edema with herniation through left craniotomy site - Dr. Perry/neurosurgery Respiratory: Acute hypoxic Respiratory failure-ARDS- resolving. Noncardiogenic/neurogenic pulmonary edema - Ventilator bundle, nebs, hob at 30 degrees. - Albuterol/age-appropriate versus every 6 hours with albuterol aerosols every 2 hours. Dyspnea -- continue daily SBTs. -- plan for trach today. Cardiovascular: Severe shock - septic and cardiogenic- resolved. Severe LV dysfunction secondary to SAH - persistent. Elevated troponin- secondary to SAH, unlikely to be ACS. - resolved. Pulmonary hypertension - continue diuresis. Echocardiogram 10/14/16 revealed EF 40-45%. Septal hypokinesis. Moderate MR. Severe pulmonary hypertension with pulmonary artery pressures estimated 61 mmHg Renal: Cerebral Salt Wasting/SIADH -- Strict I/Os - BNP > 5000 on 10/18 See below. Creatinine currently within normal limits Resolved FEN/GI: Severe hyponatremia Hypokalemia Elevated transaminases Hyperammonia -Currently on sodium chloride 3gm po TID - ICU electrolyte protocol - aggressively replace potassium losses. - Lansoprazole 30 mg by tube daily for GI prophylaxis -Docusate sodium 100 mg twice a day, senna liquid 8.6 mg twice a day and polyethylene glycol 3350 17 g twice a day for bowel regimen Lactulose 30 cc twice a day. ammonia still elevated. increase lactulose to qid. Heme/ID: Septic Shock- resolved. Possible HCAP Digital Ischemia with necrosis - Local phenomenon. CO always hyperdynamic range, urine copious. - Diltiazem and milrinone infusions continuous for 6 days now. -- Digits have demarcated. cardizem PO (for digital ischemia, Raynaud's) Pertinent cultures 10/15 - blood cultures - 1 out of 4 anaerobic gram-negative cocci possibly Veillonella 10/15 - sputum - beta strep not A, strep species 10/19 cultures NG 10/21 1/4 bottles blood cultures coag negative staph. Endocrine: Presumed Adrenal Insufficiency -Discontinued fludrocortisone 10/18. Monitor sodium 6 hours. Sliding-scale insulin with Novulog -Accu-Cheks every 4 hours to maintain euglycemia [place] protocol. d/c levemir bid. Taper off cortisone -> done Prophylaxis: GI Prophylaxis - lansoprazole DVT Prophylaxis-- SCDs, heparin subcutaneous Lines: - 10/14 right SC TLC, removed 10/22 - 10/14 right radial art line, removed 10/14 - 10/15 left radial art line, removed 10/16 - 10/15 left femoral art line - 10/22 left groin triple lumen placed, d/c 10/30 - d/c ramires. Overall impression: Improved neurological status. Digital ischemia has improved. Milrinone improved CO but ischemia to two fingertips persists. BNP elevated today consistent with acute on chronic heart failure.. Urine output continues to confirm good renal perfusion. He will lose fingertips due to heart failure and local digital vasospasm. Aside from demarcated fingers he is warm and well perfused. Will slowly decrease diltiazem and milrinone. Continue SBTs. Start TFs. The patient's digital ischemia developed when he had a cardiac output over 8.0 liters/min, CVP was over 20 mm Hg, and urine over 75 ml/hr for many days. BNP was elevated at 777. His hands and feet were warm but the fingers and toes became cold, white, nearly cadaveric. Neosynephrine was only vasopressor and it was at 30 units/min only. We stopped it immediately and started milrinone and cardizem iv infusions. Most fingers and toes responded well to the vascular dilators but a few digits demarcated and became necrotic. Anticoagulation was not an option in face of recent aneurysm rupture and gastritis. Patients with this degree of digital ischemia (severe Raynaud's) usually have an underlying illness such as malignancy, mixed connective tissue disorder, collagen vascular disease, rheumatoid disease, etc. This workup can progress after he has cleared exogenous steroids which were just stopped. He's in a pretty revved up inflammatory state now and the lab values will be altered by it. trach today. ready for placement, which has significant barriers. Walter Sullivan MD Nov 01, 2016 07:53
[2016-11-01] MEDS: LANSOPRAZOLE SOLUTAB 30 MG TAB NG SCH (08:27)
[2016-11-01] MEDS: SODIUM CHLORIDE 1 GRAM TAB PO SCH ×3 (08:27→18:05)
[2016-11-01] MEDS: FUROSEMIDE 40 MG/4 ML VIAL IV PUSH SCH (08:28)
[2016-11-01] MEDS: ARTIFICIAL TEARS OPTH SOLN 15 ML BTL EACH EYE SCH ×3 (08:28→18:06)
[2016-11-01] MEDS: CHLORHEXIDINE 0.12% (ORAL KIT) 15 ML CUP MT SCH ×2 (08:28→20:49)
[2016-11-01] MEDS: BENEPROTEIN POWDER 1 PACK G-TUBE SCH ×3 (08:28→18:05)
[2016-11-01] MEDS: levETIRAcetam 500 MG/5 ML UDC NG SCH ×2 (08:29→20:48)
[2016-11-01] MEDS: LACTULOSE SYRUP 20 GM/30 ML CUP OG-TUBE SCH ×4 (08:29→20:48)
[2016-11-01] MEDS: SODIUM CHLORIDE 0.9% FLUSH 10 ML FLUSH IV FLUSH SCH ×2 (08:29→20:48)
[2016-11-01] MEDS: INSULIN DETEMIR 100 UNITS/ML VIAL SQ SCH (09:00)
[2016-11-01] MEDS ORDERED: CISATRACURIUM BESYLATE 20 MG/10 ML VIAL IV ONE (09:15)
[2016-11-01] MEDS: DEXTROSE 50% IN WATER 50 ML VIAL(D50) IV PUSH PRN (09:22)
--- NOTE | 2016-11-01 09:51 | HHI.NSPN ---
(Malinda Hines) Note Status Status: Progress Note (George Perry MD) Interval History Interval History This is a 56-year-old male brought to the emergency room as an emergency transfer from another institution with history of intracranial bleed. He was transferred from [facility] and [facility]. Apparently the patient said that patient earlier this morning was coming down the stairs when he started feeling some left-sided weakness and numbness. He called 911 and by the time EMS arrived they detected severe neurological deficits and called a stroke alert. No seizure activity reported. No tongue biting. No incontinence of stool or urine. Patient was taken to [facility]. Apparently he was not able to move his right side . When patient arrived his mental status started to decline and he was intubated emergently in the ER for airway protection. A CT scan of the head showed extensive subarachnoid bleed. In addition he had a sizable subdural hematoma. He was brought emergently on the ventilator. He was on a propofol drip and well sedated. GCS was 3. He was on a Cardene drip and blood pressure was in the 120s. Neurosurgical consultation was requested 10/08. POD #1 Open eyes and follows commands 10/12. Doing very well. Neurologically stable. Patient is in restraints secondary to pulling out his [place]don[place] multiple times. 10/13. Much more lethargic, difficult to speak with new aphasia 10/14. Improved after angiography. Today he developed new onset of aphasia and right hemiparesis 10/17. Intubated and sedated. Lung infiltrates dense bilaterally, reflected in shunting and problems with oxygenation. 10/18: underwent endovascular verapamil infusion to left MCA vasospasm yesterday. TCD today pending. left flap pak today. Intubated and sedated. continues to be on multiple pressors. on 3% NS. 10/19: currently unstable for travel for repeat CT Head this am. no changes with neuro checks, remains intubated, sedated. pupils equal. continues on multiple pressors support 10/20: intubated and mildly sedated. remains on multiple pressors. pneumonia worsening. TCD this am reports slight increase in flow velocity to left, he underwent cerebral angiography yesterday with endovascular verapamil infusion right ICA. 10/21: intubated, sedated on fentanyl and versed. On Nimbex. 10/25: off Nimbex. Mildly opening eyes today. 10/26: opening eyes more today, ?focusing 10/27: intubated, minimal eye opening. not following commands. 10/28: appears more awake, following commands, focusing and tracked. shook head no when asked if doing ok. 10/31: remains intubated, tracking more today, not following with extremities 11/01: nursing reports intermittently follows commands to upper extremities. for tracheostomy today. (Malinda Hines) Labs, Micro, & Vital Signs Results Date Time Temp Pulse Resp B/P (MAP) Pulse Ox O2 Delivery O2 Flow Rate FiO2 11/01/16 08:15 100 35 11/01/16 08:00 35 11/01/16 08:00 85 11/01/16 08:00 98.7 85 16 114/68 (83) 100 11/01/16 06:00 89 11/01/16 04:01 100 35 11/01/16 04:00 35 11/01/16 04:00 88 11/01/16 04:00 99.1 88 16 107/77 (87) 100 11/01/16 02:00 89 11/01/16 00:26 100 35 11/01/16 00:00 35 11/01/16 00:00 92 11/01/16 00:00 99.0 92 16 123/76 (92) 100 10/31/16 22:00 91 10/31/16 21:28 100 35 10/31/16 20:00 94 10/31/16 20:00 35 10/31/16 20:00 99.1 94 16 117/77 (90) 98 10/31/16 18:00 86 10/31/16 16:42 100 35 10/31/16 16:00 99.1 91 16 105/69 (81) 100 10/31/16 16:00 91 10/31/16 16:00 35 10/31/16 14:50 100 35 10/31/16 14:00 94 10/31/16 12:00 94 10/31/16 12:00 99.3 94 20 126/77 (93) 100 10/31/16 12:00 35 10/31/16 11:16 100 35 10/31/16 10:00 93 Constitutional Vital Signs Date Time Temp Pulse Resp B/P (MAP) Pulse Ox O2 Delivery O2 Flow Rate FiO2 11/01/16 08:15 100 35 11/01/16 08:00 35 11/01/16 08:00 85 11/01/16 08:00 98.7 85 16 114/68 (83) 100 11/01/16 06:00 89 11/01/16 04:01 100 35 11/01/16 04:00 35 11/01/16 04:00 88 11/01/16 04:00 99.1 88 16 107/77 (87) 100 11/01/16 02:00 89 11/01/16 00:26 100 35 11/01/16 00:00 35 11/01/16 00:00 92 11/01/16 00:00 99.0 92 16 123/76 (92) 100 10/31/16 22:00 91 10/31/16 21:28 100 35 10/31/16 20:00 94 10/31/16 20:00 35 10/31/16 20:00 99.1 94 16 117/77 (90) 98 10/31/16 18:00 86 10/31/16 16:42 100 35 10/31/16 16:00 99.1 91 16 105/69 (81) 100 10/31/16 16:00 91 10/31/16 16:00 35 10/31/16 14:50 100 35 10/31/16 14:00 94 10/31/16 12:00 94 10/31/16 12:00 99.3 94 20 126/77 (93) 100 10/31/16 12:00 35 10/31/16 11:16 100 35 10/31/16 10:00 93 (Malinda Hines) Physical Exam Intubated. Awake, eyes open, tracks left and right to command. CN: pupils 3-4 mm bilaterally Left flap sunken in Surgical incision is healing well Motor: not following to commands x 4 extremities Diffuse extremity edema Abdomen: soft (Malinda Hines) Medications Current Medications Current Medications Medications (Trade) Dose Ordered Sig/Adali Route PRN Reason Start Time Stop Time Status Last Admin Dose Admin Chlorhexidine Gluconate (Peridex 0.12% Liq) 15 ml BID@08,20 MT 10/07/16 20:00 11/01/16 08:28 Ondansetron HCl (Zofran Inj) 4 mg Q6H PRN IV NAUSEA OR VOMITING 10/07/16 18:30 Calcium Gluconate (Calcium Gluconate Inj) 1 gm UNSCH PRN IV SEE LABEL COMMENTS 10/07/16 18:30 10/16/16 10:00 Potassium Chloride 100 ml @ 50 mls/hr UNSCH PRN IV POTASSIUM LESS THAN 4 10/07/16 18:30 10/12/16 06:13 Magnesium Sulfate 4 gm/Sodium Chloride 108 ml @ 108 mls/hr UNSCH PRN IV MAGNESIUM LESS THAN 2 10/07/16 18:30 Acetaminophen (Tylenol) 650 mg Q4H PRN PO TEMP >100.4 10/07/16 18:30 10/12/16 18:15 Dextrose (D50w (Vial) Inj) 50 ml UNSCH PRN IV PUSH HYPOGLYCEMIA - SEE COMMENTS 10/07/16 19:15 11/01/16 09:22 Glucagon (Glucagon Inj) 1 mg UNSCH PRN OTHER HYPOGLYCEMIA-SEE COMMENTS 10/07/16 19:15 Propofol 100 ml @ 0 mls/hr TITRATE PRN IV Sedation 10/07/16 23:15 11/01/16 05:31 Nimodipine (Nimotop) 60 mg Q4HR PO 10/13/16 00:00 11/02/16 23:59 11/01/16 08:28 Fentanyl Citrate 250 ml @ 5 mls/hr TITRATE PRN IV SEDATION 10/14/16 15:00 10/30/16 17:39 Heparin Sodium (Porcine) (Heparin Inj) 5,000 units Q8HR SQ 10/14/16 22:00 10/31/16 22:57 Sodium Chloride (Sodium Chloride) 3 gm TID PO 10/15/16 13:15 11/01/16 08:27 Magnesium Oxide (Mag-Ox) 800 mg UNSCH PRN PO For Magnesium 1.2 - 1.6 mg/dL 10/16/16 09:15 Magnesium Sulfate 4 gm/Sodium Chloride 100 ml @ 50 mls/hr UNSCH PRN IV For Magnesium 0.9 - 1.1 mg/dL 10/16/16 09:15 Magnesium Sulfate 2 gm/Sodium Chloride 100 ml @ 50 mls/hr UNSCH PRN IV For Magnesium 1.2 - 1.6 mg/dL 10/16/16 09:15 Potassium Chloride 100 ml @ 50 mls/hr Q2H PRN IV For Potassium 2.8 - 3.2 mEq/L 10/16/16 09:15 10/16/16 12:22 Potassium Chloride 100 ml @ 50 mls/hr Q2H PRN IV For Potassium 3.3 - 3.5 mEq/L 10/16/16 09:15 Potassium Chloride 100 ml @ 50 mls/hr Q2H PRN IV For Potassium 2.8 - 3.2 mEq/L 10/16/16 09:15 10/27/16 13:26 Potassium Chloride 100 ml @ 25 mls/hr UNSCH PRN IV For Potassium 3.3 - 3.5 mEq/L 10/16/16 09:15 10/30/16 06:06 Potassium Phosphate (K-Phos) 2,000 mg Q4H PRN PO For Phosphorus < 2.5 mg/dL 10/16/16 09:15 Potassium Phosphate (K-Phos) 2,000 mg UNSCH PRN PO/TUBE SEE LABEL COMMENTS 10/16/16 09:15 Potassium Phosphate 30 mmol/ Sodium Chloride 260 ml @ 42 mls/hr UNSCH PRN IV SEE LABEL COMMENTS 10/16/16 09:15 10/24/16 20:39 Sodium Phosphate 30 mmol/Sodium Chloride 250 ml @ 42 mls/hr UNSCH PRN IV For Phosphorus < 2.5 mg/dL 10/16/16 09:15 10/22/16 06:46 Calcium Gluconate 1 gm/Sodium Chloride 110 ml @ 110 mls/hr UNSCH PRN IV For Protein Corrected Calcium 10/18/16 09:45 10/18/16 10:22 Lansoprazole (Prevacid Odt) 30 mg DAILY NG 10/20/16 09:00 11/01/16 08:27 Sodium Chloride (NS Flush) 2 ml UNSCH PRN IV FLUSH FLUSH AFTER USING IV ACCESS 10/19/16 09:45 Sodium Chloride (NS Flush) 2 ml BID IV FLUSH 10/19/16 21:00 10/31/16 09:32 Artificial Tears (Tears Naturale Opth Soln) 1 drop TID EACH EYE 10/19/16 13:00 11/01/16 08:28 Albuterol Sulfate (Albuterol Neb) 2.5 mg Q2HR NEB PRN INH SOB/WHEEZING 10/19/16 09:45 Miscellaneous Information 1 Q361D XX 10/19/16 09:45 Chlorhexidine Gluconate (Chlorhexidine 2% Cloth) Taper DAILY@04 TOP 10/20/16 04:00 10/16/17 03:59 10/23/16 04:20 Chlorhexidine Gluconate (Chlorhexidine 2% Cloth) 3 pack UNSCH PRN TOP HYGIENIC CARE 10/19/16 09:45 Insulin Aspart (NovoLOG SUPPLEMENTAL SCALE) 1 Q4HR SQ 10/20/16 12:00 10/27/16 11:57 Furosemide (Lasix Inj) 40 mg DAILY IV PUSH 10/28/16 09:00 11/01/16 08:28 Insulin Detemir (Levemir Inj) 8 units Q12HR SQ 10/28/16 21:00 10/29/16 08:28 Protein (Beneprotein Powder) 1 pack TID G-TUBE 10/29/16 13:00 11/01/16 08:28 Diltiazem HCl (Cardizem) 60 mg Q6HR PO 10/29/16 13:00 11/01/16 05:30 Levetriacetam (Keppra Liq) 500 mg Q12HR NG 10/31/16 21:00 11/01/16 08:29 Lactulose (Lactulose Liq) 30 ml QID OG-TUBE 11/01/16 09:00 Phenytoin (Dilantin Liq) 100 mg Q8HR PO 11/01/16 14:00 (Malinda Hines) Medical Decision Making MDM Remarks 56 y/o male with 1. Subarachnoid hemorrhage, status post coiling posterior communicating artery aneurysm. s/p left decompressive craniectomy Vasospasms, s/p endovascular verapamil infusions 10/13/16, 10/17/16, 10/19/16. Neurologically exam improving, more awake and following commands. 2. Possible seizures. Remains on Keppra and Cerebyx 3. Respiratory failure, remains intubated (Malinda Hines) Plan Plan Remarks critical care management for tracheostomy today, cont therapy (Malinda Hines) Attending Statement The exam, history, and the medical decision-making described in the above note were completed with the assistance of the mid-level provider. I reviewed and agree with the findings presented. I attest that I had a [id number] encounter with the patient on the same day, and personally performed and documented my assessment and findings in the medical record. (George Perry MD) Malinda Hines Nov 01, 2016 09:51 George Perry MD Nov 02, 2016 14:07
[2016-11-01] MEDS: PHENYTOIN SUSP 100 MG/4 ML CUP PO SCH ×2 (13:46→20:48)
[2016-11-01] MEDS ORDERED: HALOPERIDOL LACTATE 5 MG/ML AMP IV PUSH PRN (15:00)
--- NOTE | 2016-11-01 19:45 | PD.PROCEDR ---
Procedure Note Procedure Percutaneous Dilation Tracheostomy Tube Placement Diagnosis: Subarachnoid hemorrhage Indications: Subacute hypoxic and hypercarbic respiratory failure Anesthesia: Versed IV, propofol IV Neuromuscular Blockade: Cisatracurium Anesthesia was provided by the bedside RN Description of the Procedure: The patient was sedated and paralyzed. The patient was positioned in the supine position with a chest roll. The patient's neck was slightly extended. Landmarks were palpated and the anatomy of the anterior neck was deemed normal. A time out procedure was performed. The patient was placed on a volume control mode of ventilation, on 100% FiO2. The patient was prepped and draped sterilely. After negative aspiration, 1% lidocaine with 1:100k epinephrine was injected subcutaneously in the midline neck using a 21g needle for local anesthesia. An approximately 2cm skin incision was made using a #15 blade. The cricoid cartilage, thyroid tissue, and tracheal rings were palpated in the midline. Under direct bronchoscopic guidance, the cuff of the endotracheal tube was deflated and the endotracheal tube was retracted to a level above the level of the skin incision. At this point, a 15g introducer needle/catheter was advanced midline under negative aspiration with saline filled syringe until bubbles were seen and the needle and catheter were visualized in the lumen of the trachea. The needle was withdrawn leaving the catheter in place. A 0.052 in diameter J-shaped guidewire was advanced through the catheter into the lumen of the trachea. Using a modified Seldinger technique, a 14 Fr, 4.5 cm introducer dilator was used, followed by a Blue Rhino Percutaneous Tracheostomy Dilator, and finally a 28 Fr tracheostomy loading catheter with 8.0 Cuffed Shiley tracheostomy tube. The loading catheter and guidewire were removed and the tracheostomy tube was confirmed in the lumen of the trachea with end-tidal CO2, and returning volumes on the ventilator. The tracheostomy was sewn to the skin with interrupted 2.0 Prolene sutures, and a tracheostomy tie was applied to the skin. There were no immediate complications. There was minimal EBL. A chest x-ray has been ordered. Casino Floor Person: Dr. Rodriguez Collazo I personally performed the procedure. Walter Sullivan MD Nov 01, 2016 19:45
[2016-11-01] MEDS: MELATONIN 5 MG TAB PO SCH (20:48)
[2016-11-01] MEDS: oxyCODONE HCL ORAL CONC 20 MG/ML SYRINGE PO PRN (22:34)
[2016-11-02] VITALS (19 sets, daily range): BP systolic 119–141; BP diastolic 63–96; PULSE 91–118; RESP 14–27; TEMP 99.1–100.6; O2SAT 96–100
[2016-11-02] MEDS: niMODipine 30 MG CAP PO SCH ×5 (02:45→20:23)
[2016-11-02] MEDS: oxyCODONE HCL ORAL CONC 20 MG/ML SYRINGE PO PRN ×3 (02:46→20:23)
[2016-11-02] MEDS: CHLORHEXIDINE GLUCONATE 2 % 1 PACK (2 CLOTHS) TOP SCH (04:00)
[2016-11-02] MEDS: INSULIN ASPART SUPPLEMENTAL SCALE SQ SCH ×6 (04:00→22:49)
[2016-11-02] MEDS: DILTIAZEM HCL 60 MG TAB PO SCH (04:46)
[2016-11-02] MEDS: HEPARIN SODIUM - SQ 10,000 UNITS/ML VIAL SQ SCH ×3 (04:46→20:23)
[2016-11-02] MEDS: PHENYTOIN SUSP 100 MG/4 ML CUP PO SCH ×3 (04:47→20:24)
[2016-11-02 05:17] LABS: HEMATOCRIT 27.3 % (39.0-51.0); MEAN CELL VOLUME 98.4 FL (80.0-100.0); MEAN CORPUSCULAR HEMOGLOBIN 30.7 PG (27.0-34.0); MEAN CORPUSCULAR HGB CONC 31.2 % (32.0-36.0); PLATELET COUNT 188 TH/MM3 (150-450); RED BLOOD COUNT 2.77 MIL/MM3 (4.50-5.90); RED CELL DISTRIBUTION WIDTH 14.5 % (11.6-17.2); WHITE BLOOD COUNT 14.9 TH/MM3 (4.0-11.0)
[2016-11-02 05:32] LABS: REVIEW FLAG FINAL
[2016-11-02 05:40] LABS: BICARBONATE 27.3 MEQ/L (21.0-32.0); POTASSIUM 3.3 MEQ/L (3.5-5.1)
--- NOTE | 2016-11-02 07:21 | HHI.CCPN ---
Subjective Remarks/Hospital Course 10/07: 56-year-old male presents with intracranial bleed. Patient was transferred from [facility] at [facility]. As per the paramedics and the nurse who assisted the patient said that patient earlier this morning was coming down the stairs when he started feeling some left-sided weakness and numbness. He called 911 and by the time EMS arrived they detected some deficit and called a stroke alert. Patient was taken to [facility]. When patient arrived his mental status started to decline and he was intubated emergently in the ER. A CAT scan of the head showed subarachnoid and subdural bleed. He was taking emergently to an angio suite for coiling of the aneurysm and later on to OR for subdural hematoma evacuation. 10/08: Remains sedated, orally intubated on mechanical ventilation. Arouses off sedation and following commands with both upper extremities earlier. Ventriculostomy in place. ICP 7, CPP mid 80s. 10/09: Remains sedated, orally intubated on mechanical ventilation. Arouses off sedation and follows commands with both upper extremities. Ventriculostomy in place. 10/10: Remains sedated, orally intubated on mechanical ventilation. Arouses off sedation and follows commands and both upper extremities. Ventriculostomy in place. ICP 5. Failed C Pap trial yesterday. 10/11: Extubated on 10/10, tolerating well. Awake and alert. Appears confused, moving all 4 extremities. Ventriculostomy discontinued today by neurosurgery 10/13: Patient has developed severe vasospasm at the left MCA territory on TCD's that was treated with IV route verapamil 10/14: patient extubated overnight. was originally following commands and neuro intact. TCDs this morning with increase LIs over yesterday, particularly Left MCA territory. On my evaluation early this morning, patient was aphasic, not moving the right side of his body, not following commands. SBP 140s at that time. net 2L negative/24h and uop almost 1L/hr at the time. I immediately bolused with 2L NS iv, placed arterial and central lines, started phenylephrine , increased SBP to goal 200 - 220 mmHg. called interventional neuroradiology and accompanied patient down personally to IR for IA verapamil again. I remained with the patient managing his hemodynamics down in IR and providing anxiolysis IV. I accompanied patient back up to [facility] where patient again was neuro intact and following commands. Sodium downtrending to 135 and urine studies and serum osms suggestive of urine sodium losses and high uop. added Florinef to mitigate sodium losses, and increased mivf to 500cc/hr to maintain euvolemia. later in the day patient decompensated requiring intubation for hyoxemia, cxr suggestive of pulmonary edema. 2d echo with evidence of EF 40%, septal hypokinesis, moderate MR. On levo, vaso, phenylephrine. difficult to get to goal SBP 200 mmHg, likely due to myocardial dysfunction. decreased goal to 180 - 200 mmHg to balance cardiac vs. neurologic goals. 10/15 Patient was discussed with Dr. Sullivan at shift change. Isuprel was initiated in effort to improve cardiac output as dobutamine not available and concerned with use of milrinone given long half life. Systolic blood pressure was relatively stable with perhaps some modest improvement from 170s to 180s for several hours after initiation. Notified when patient became abruptly hypotensive despite vasopressin, levophed 20 mcg/min, Greyson-Synephrine 300 mcg/m. He was also hypoxemic with sats in 80s despite PCV with PEEP 8 and FiO2 100%, respiratory rate in the 30s. He had decreased breath sounds bilaterally and was concerned for air trapping so removed from mechanical ventilation and bagged without improvement. Placed patient back on mechanical ventilation and provide recruitment maneuvers and increased PEEP to 12 which resulted in improvement of sats to 88% to 92%. Ordered Flolan. Discontinued isuprel and initiated epinephrine. R radial art line would not draw blood . Performed u/s guided femoral artery stick to confirm hypoxemia on ABG given poor wave form on pulse ox and PaO2 was 58. Placed new L radial art line and this resulted in ~ 30 point increase in SBP relative to prior line but patient ultimately on vasopressin, levophed 30 micrograms per minute, Greyson-Synephrine 300 micrograms per minute, epinephrine 12 mcg/min and unable to maintain target pressure (SBP in 150s). Given calcium chloride. patient with shaking movements all extremities, pupils 2mm and sluggish, no eye deviation. Rigors seemed most likely but unable to emergently rule out seizures so loaded with fosphenytoin to avoid secondary injury from seizure activity. WBC increasing and concern for HCAP so pancultured and placed on cefepime, vancomycin, azithromycin. Hydrocortisone 100 mg IV every 8 hours initiated due to concern for septic shock in a patient who has been refractory to all other above measures. Patient is to hemodynamically unstable and hypoxic for transport for neurologic imaging. Urine output has declined to 180-200 ML's per hour. Back off maintenance IV fluids to 200 ML's per hour. Bedside echo demonstrates decreased LV function with normal RV contractility and collapsible IVC suggesting ongoing maintenance fluid administration is appropriate. 10/15 additional visit: continued to deteriorate throughout the day. Seen multiple times. hypoxic on 100% fio2, flolan. required nimbex drip to maintain. repeat bedside critical care ultrasound still demonstrates severe LV dysfunction , decompressed RV, IVC more dilated than previous echo overnight, however still with respiratory variation. femoral arterial line placed with better waveform and higher pressure (likely SVR too high to allow accurate measurement of radial pressure). Pulse contour analysis without stroke volume variation, CI 3.6. SV 52mL. trialed additional albumin without improvement in hemodynamics. uop slower than before, but still significant salt wasting in the urine- sodium dropped to 125 from 132 despite already on 3% nacl infusion and aggressive sodium replacements. forced to give 23% nacl and salt tabs. declining clinically despite maximal therapy. 10/16: continues to be maximally critically ill. LV dysfunction persists. starting to get volume overloaded, but given concern for ongoing cerebral vasospasm, unable to actively diurese patient. sodium wasting persists, but uop downtrending slightly. very hypokalemic today, likely due to steroids. remains intubated, sedated, paralyzed, on flolan. CXR today appears worse with worsening airspace disease. Lactate remains slightly elevated, confirming persistent shock. 10/17: Lung infiltrates dense bilaterally, reflected in shunting and problems with oxygenation. Developed vasospasm on TCDs and required angiogram and intra- arterial verapamil again today. 10/18: SBP 160 - 170 range. FiO2 0.55. BNP > 5000. Not tolerating attempts at maintaining higher BP due to worsening heart failure. Several episodes of vasospasm. Watch daily TCDs closely. Sputum no growth. 10/19: Tmax 99.8. Currently 99. Remains on 4 vasopressors and epoprostenol 10/20: Yesterday. Returned IR for intra-arterial calcium channel jose infusion for vasospasm. Transcranial Dopplers today Still pending. Remains on significant vasopressor support. 10/21: Good response to diuresis, check BNP. TCDs pending. Heart failure remains a major problem. 10/22: CVP 21 - 22, finger tips blue, digits pale white despite high dose milrinone dilation. Greyson and vaso much reduced. Will try diltiazem gtt for digital ischemia. Urine remains > 200/hr and proximal limbs are well perfused. This digital ischemia appears to be a local phenomenon ala Raynaud's. New subcutaneous emphysema right anterior chest wall. 10/23: Old CVL removed. Fingertips remain marginal, some necrotic despite diltiazem and milrinone treatment for digital ischemia. Cardiac output > 7 liters/min and urine copious, confirming good perfusion pressure and flow. This continues to be a local phenomenon of the digits ala Raynaud's. We are trying to wean vasopressors off but are required to maintaining a cerebral perfusion pressure suitable for the treatment of aneurysmal subarachnoid bleed. Frankly, the importance of brain function eclipses fingertips. 10/24: Afebrile. Well perfused except for index finger left hand, few tips fingers right. Arms and hands warmer with resolving circumferential edema. Diltiazem and milrinone gtt continue. Greyson to 10 mics/min. 10/25: Digits are warm and well perfused except left index and right 4th fingertips; demarcated and not viable. Dry. Diltiazem and milrinone infusions continue to help reverse digital ischemia. 10/26: Forced diuresis continues and BP remains nicely elevated. Hands and digits warm aside from left index and right 4th fingertips which have demarcated. 10/27: Good response to diuretics. Perfusion pressure and documented flow excellent. Continue to wean vent. 10/28: Start SBTs. Fluid balance back toward normal. 10/29: Tolerating SBTs. Lowering sedation. Edema resolving. 10/30: Tolerating tube feeds, will taper off TPN and remove central line. Continue diuretics. 10/31: net -3L over 24h. mental status at baseline. tolerating CPAP, but does not have the mental status to protect airway. will likely need trach/peg. placement will be a problem due to lack of funding. 11/01: no changes or improvements. discussed with yesterday and she "does not want any more setbacks" and would prefer trach versus trial of extubation. I agree with her assessment. plan for trach today. placement is still a significant problem. net -2L/24h. Subjective 11/02: wbc uptrending, febrile. antonio cultured, started empiric abx today. failed SBT overnight and placed back on rate. Objective Vital Signs Date Time Temp Pulse Resp B/P (MAP) Pulse Ox O2 Delivery O2 Flow Rate FiO2 11/02/16 06:00 104 11/02/16 05:45 30 11/02/16 05:35 100 11/02/16 04:00 100.6 23 119/63 (81) 11/01/16 16:13 T-piece 5.00 Intake and Output 11/02/16 11/02/16 11/03/16 08:00 16:00 00:00 Intake Total 870 ml Output Total 1500 ml Balance -630 ml Result Diagram: 11/02/16 0432 11/02/16 0432 Imaging Last Impressions Chest X-Ray 10/20/16 0000 Signed Impressions: Service Date/Time: October 03:47 - CONCLUSION: 1. Stable tubes and lines. 2. Stable bilateral lower lung zone airspace disease. 3. Stable small right pleural effusion. 4. No significant interval change. Kev Vergara MD Transcranial Doppler Study Complete 10/19/16 0600 Signed Impressions: Service Date/Time: Wednesday, October 19, 2016 08:02 - CONCLUSION: Suspect developing right MCA vasospasm Yosvany Polk MD Liver Ultrasound 10/19/16 0000 Signed Impressions: Service Date/Time: Wednesday, October 19, 2016 11:20 - CONCLUSION: 1. Sludge filled gallbladder with thickened wall. 2. Moderate size bilateral pleural effusions and mild upper abdominal ascites. Santos Vazquez MD Head CT 10/17/16 0000 Signed Impressions: Service Date/Time: Monday, October 17, 2016 15:06 - CONCLUSION: Ventricles are slightly larger without ventriculostomy. Edema in the left hemisphere the brain herniating through the operative site. Remington Woodward MD FACR Cerebral Arteriogram 10/17/16 0000 Signed Impressions: Service Date/Time: Monday, October 17, 2016 00:00 - CONCLUSION: 1. Uncompensated spasmolysis of the left middle cerebral artery Harvey Morejon MD Infusion Non-thrombolysis 10/14/16 1103 Signed Impressions: Service Date/Time: Friday, October 14, 2016 10:21 - CONCLUSION: 1. Uncomplicated infusion for spasmolysis Harvey Morejon MD Neck CTA 10/07/16 0000 Signed Impressions: Service Date/Time: Friday, October 07, 2016 15:03 - CONCLUSION: 1. Mild carotid bulb atherosclerotic calcification bilaterally. However, no significant stenosis is present in either internal carotid artery. 2. Paranasal sinus mucoperiosteal thickening. 3. Please refer to brain CTA report for description of the intracranial findings. Yosvany Ramirez MD Head CTA 10/07/16 0000 Signed Impressions: Service Date/Time: Friday, October 07, 2016 15:03 - CONCLUSION: 1. 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 2. Large left subdural hematoma measuring 1.3 cm in depth with a significant, 1.6 cm left to right subfalcine shift. Joni Shelton MD Objective Remarks GENERAL: 56-year-old male, trached HEAD: Status post left craniectomy. Incision is clean dry and intact EYES: About 3 mm bilaterally and reactive NECK: trachea midline. 8.0 shiley cuffed trach CARDIOVASCULAR: Tachycardic, RR. RESPIRATORY: Diminished breath sounds bilateral lower lobes. GASTROINTESTINAL: Abdomen soft, non-tender, nondistended. MUSCULOSKELETAL: Ischemic changes to left index finger tip and right 4th fingertip, skin marginal at best. Other digits have remained warm and well perfused. Arms and legs warm, toes all well-perfused. NEURO EXAM: Opens eyes to loud voice. Intermittently squeezes left hand to command. Breathes with good strength. Procedures 10/13 Four-vessel cerebral angiography with verapamil treatment of vasospasm A/P Assessment and Plan Neuro/Psych Status post left frontotemporal parietal craniectomy 10/08 for evacuation subdural hematoma/duraplasty Left subdural hematoma - 1.3 cm with 1.6 shift left to right Subarachnoid hemorrhage contents 5, Carroll grade 4 - left P-comm status post 4 coiling 10/08 - TCD's daily: 10/19 - vasospasm -intra-arterial verapamil - Nimodipine 60 mg every 4 hours for vasospasm to complete 21 days. Initiated - Levetiracetam 500 mg per tube twice a day with phenytoin 100mg per tube q8h. - 10/13 and 10/14 and 10/17) 10/19 left MCA territory vasospasm, status post successful verapamil treatment by IR with 20 mg verapamil - SBP goal 180 - 220 mmHg, although only able to press to 160 on maximal therapy given cardiac dysfunction. - 10/17 CT brain - less hemisphere edema with herniation through left craniotomy site - Dr. Perry/neurosurgery Respiratory: Acute hypoxic Respiratory failure-ARDS- resolving. Noncardiogenic/neurogenic pulmonary edema - Ventilator bundle, nebs, hob at 30 degrees. - Albuterol/age-appropriate versus every 6 hours with albuterol aerosols every 2 hours. Dyspnea -- continue daily SBTs. -- s/p Trach Dr. Sullivan/Dr. Collazo 11/01 -- continue SBTs and trach collar trials daily Cardiovascular: Severe shock - septic and cardiogenic- resolved. Severe LV dysfunction secondary to SAH - persistent. Elevated troponin- secondary to SAH, unlikely to be ACS. - resolved. Pulmonary hypertension - continue diuresis. Echocardiogram 10/14/16 revealed EF 40-45%. Septal hypokinesis. Moderate MR. Severe pulmonary hypertension with pulmonary artery pressures estimated 61 mmHg Renal: Cerebral Salt Wasting/SIADH -- Strict I/Os - BNP > 5000 on 10/18 See below. Creatinine currently within normal limits Resolved FEN/GI: Severe hyponatremia Hypokalemia Elevated transaminases Hyperammonia -Currently on sodium chloride 3gm po TID - ICU electrolyte protocol - aggressively replace potassium losses. - Lansoprazole 30 mg by tube daily for GI prophylaxis -Docusate sodium 100 mg twice a day, senna liquid 8.6 mg twice a day and polyethylene glycol 3350 17 g twice a day for bowel regimen Lactulose 30 cc QID. ammonia still elevated. Heme/ID: Septic Shock- resolved. Possible HCAP New Fever, leukocytosis Digital Ischemia with necrosis - Local phenomenon. CO always hyperdynamic range, urine copious. - Diltiazem and milrinone infusions continuous for 6 days now. -- Digits have demarcated. cardizem PO (for digital ischemia, Raynaud's) Pertinent cultures 10/15 - blood cultures - 1 out of 4 anaerobic gram-negative cocci possibly Veillonella 10/15 - sputum - beta strep not A, strep species 10/19 cultures NG 9/ bottles blood cultures coag negative staph. Resent blood, sputum, urine cultures. start vancomycin, cefepime, flagyl send c. diff. unlikely to be related to diarrhea, as diarrhea is likely to be secondary to lactulose. However, no increase in fio2 or change in sputum production to suggest VAP as a source, u/a clean, no indwelling lines. will get CXR in AM. Endocrine: Presumed Adrenal Insufficiency -Discontinued fludrocortisone 10/18. Monitor sodium 6 hours. Sliding-scale insulin with Novulog -Accu-Cheks every 4 hours to maintain euglycemia Shobonier protocol. d/c levemir bid. Taper off cortisone -> done Prophylaxis: GI Prophylaxis - lansoprazole DVT Prophylaxis-- SCDs, heparin subcutaneous Lines: - 10/14 right SC TLC, removed 10/22 - 10/14 right radial art line, removed 10/14 - 10/15 left radial art line, removed 10/16 - 10/15 left femoral art line - 10/22 left groin triple lumen placed, d/c 10/30 - d/c ramires. Overall impression: Improved neurological status. Digital ischemia has improved. Milrinone improved CO but ischemia to two fingertips persists. BNP elevated today consistent with acute on chronic heart failure.. Urine output continues to confirm good renal perfusion. He will lose fingertips due to heart failure and local digital vasospasm. Aside from demarcated fingers he is warm and well perfused. The patient's digital ischemia developed when he had a cardiac output over 8.0 liters/min, CVP was over 20 mm Hg, and urine over 75 ml/hr for many days. BNP was elevated at 777. His hands and feet were warm but the fingers and toes became cold, white, nearly cadaveric. Neosynephrine was only vasopressor and it was at 30 units/min only. We stopped it immediately and started milrinone and cardizem iv infusions. Most fingers and toes responded well to the vascular dilators but a few digits demarcated and became necrotic. Anticoagulation was not an option in face of recent aneurysm rupture and gastritis. Patients with this degree of digital ischemia (severe Raynaud's) usually have an underlying illness such as malignancy, mixed connective tissue disorder, collagen vascular disease, rheumatoid disease, etc. This workup can progress after he has cleared exogenous steroids which were just stopped. He's in a pretty revved up inflammatory state now and the lab values will be altered by it. ready for placement, which has significant barriers. New fevers are concerning, but source elusive at this point. will cover broadly and culture. If the fever is related to stress response from trach yesterday, could de-escalate at 48h negative cultures. Walter Sullivan MD Nov 02, 2016 07:20
[2016-11-02] MEDS: LANSOPRAZOLE SOLUTAB 30 MG TAB NG SCH (08:10)
[2016-11-02] MEDS: SODIUM CHLORIDE 1 GRAM TAB PO SCH ×3 (08:10→18:13)
[2016-11-02] MEDS: FUROSEMIDE 40 MG/4 ML VIAL IV PUSH SCH (08:10)
[2016-11-02] MEDS: levETIRAcetam 500 MG/5 ML UDC NG SCH ×2 (08:11→20:24)
[2016-11-02] MEDS: ARTIFICIAL TEARS OPTH SOLN 15 ML BTL EACH EYE SCH ×3 (08:11→18:14)
[2016-11-02] MEDS: SODIUM CHLORIDE 0.9% FLUSH 10 ML FLUSH IV FLUSH SCH ×2 (08:11→20:24)
[2016-11-02] MEDS: CHLORHEXIDINE 0.12% (ORAL KIT) 15 ML CUP MT SCH ×2 (08:15→20:25)
[2016-11-02] MEDS: ACETAMINOPHEN 325 MG TAB PO PRN (08:37)
[2016-11-02] MEDS: POTASSIUM CHLOR 20 MEQ PREMIX 100 ML IV PRN ×2 (08:54→15:00)
[2016-11-02] MEDS: LACTULOSE SYRUP 20 GM/30 ML CUP OG-TUBE SCH ×4 (09:00→20:25)
[2016-11-02] MEDS: BENEPROTEIN POWDER 1 PACK G-TUBE SCH ×3 (09:00→18:14)
--- NOTE | 2016-11-02 10:31 | HHI.NSPN ---
(Malinda Hines) Note Status Status: Progress Note (Malinda Hines) Interval History Interval History This is a 56-year-old male brought to the emergency room as an emergency transfer from another institution with history of intracranial bleed. He was transferred from [facility] and [facility]. Apparently the patient said that patient earlier this morning was coming down the stairs when he started feeling some left-sided weakness and numbness. He called 911 and by the time EMS arrived they detected severe neurological deficits and called a stroke alert. No seizure activity reported. No tongue biting. No incontinence of stool or urine. Patient was taken to [facility]. Apparently he was not able to move his right side . When patient arrived his mental status started to decline and he was intubated emergently in the ER for airway protection. A CT scan of the head showed extensive subarachnoid bleed. In addition he had a sizable subdural hematoma. He was brought emergently on the ventilator. He was on a propofol drip and well sedated. GCS was 3. He was on a Cardene drip and blood pressure was in the 120s. Neurosurgical consultation was requested 10/08. POD #1 Open eyes and follows commands 10/12. Doing very well. Neurologically stable. Patient is in restraints secondary to pulling out his Maldonado multiple times. 10/13. Much more lethargic, difficult to speak with new aphasia 10/14. Improved after angiography. Today he developed new onset of aphasia and right hemiparesis 10/17. Intubated and sedated. Lung infiltrates dense bilaterally, reflected in shunting and problems with oxygenation. 10/18: underwent endovascular verapamil infusion to left MCA vasospasm yesterday. TCD today pending. left flap pak today. Intubated and sedated. continues to be on multiple pressors. on 3% NS. 10/19: currently unstable for travel for repeat CT Head this am. no changes with neuro checks, remains intubated, sedated. pupils equal. continues on multiple pressors support 10/20: intubated and mildly sedated. remains on multiple pressors. pneumonia worsening. TCD this am reports slight increase in flow velocity to left, he underwent cerebral angiography yesterday with endovascular verapamil infusion right ICA. 10/21: intubated, sedated on fentanyl and versed. On Nimbex. 10/25: off Nimbex. Mildly opening eyes today. 10/26: opening eyes more today, ?focusing 10/27: intubated, minimal eye opening. not following commands. 10/28: appears more awake, following commands, focusing and tracked. shook head no when asked if doing ok. 10/31: remains intubated, tracking more today, not following with extremities 11/01: nursing reports intermittently follows commands to upper extremities. for tracheostomy today. 11/02: s/p tracheostomy, smiling today, following commands. (Malinda Hines) Labs, Micro, & Vital Signs Results Date Time Temp Pulse Resp B/P (MAP) Pulse Ox O2 Delivery O2 Flow Rate FiO2 11/02/16 08:22 100 30 11/02/16 06:00 104 11/02/16 05:45 30 11/02/16 05:35 100 30 11/02/16 04:41 100 40 11/02/16 04:00 40 11/02/16 04:00 100 11/02/16 04:00 100.6 100 23 119/63 (81) 96 11/02/16 02:00 106 11/02/16 00:35 100 40 11/02/16 00:00 40 11/02/16 00:00 99.2 98 14 119/67 (84) 100 11/02/16 00:00 98 11/01/16 22:00 110 11/01/16 21:00 40 11/01/16 20:56 100 40 11/01/16 20:00 40 11/01/16 20:00 100 11/01/16 20:00 98.9 100 28 139/74 (95) 100 11/01/16 18:00 97 11/01/16 16:13 100 T-piece 5.00 40 11/01/16 16:00 40 11/01/16 16:00 99.0 91 22 140/79 (99) 100 11/01/16 16:00 90 11/01/16 14:00 90 11/01/16 13:03 100 40 11/01/16 12:00 97.5 89 24 106/61 (76) 100 11/01/16 12:00 35 11/01/16 12:00 89 11/01/16 11:00 35 11/01/16 10:30 100 100 Constitutional Vital Signs Date Time Temp Pulse Resp B/P (MAP) Pulse Ox O2 Delivery O2 Flow Rate FiO2 11/02/16 08:22 100 30 11/02/16 06:00 104 11/02/16 05:45 30 11/02/16 05:35 100 30 11/02/16 04:41 100 40 11/02/16 04:00 40 11/02/16 04:00 100 11/02/16 04:00 100.6 100 23 119/63 (81) 96 11/02/16 02:00 106 11/02/16 00:35 100 40 11/02/16 00:00 40 11/02/16 00:00 99.2 98 14 119/67 (84) 100 11/02/16 00:00 98 11/01/16 22:00 110 11/01/16 21:00 40 11/01/16 20:56 100 40 11/01/16 20:00 40 11/01/16 20:00 100 11/01/16 20:00 98.9 100 28 139/74 (95) 100 11/01/16 18:00 97 11/01/16 16:13 100 T-piece 5.00 40 11/01/16 16:00 40 11/01/16 16:00 99.0 91 22 140/79 (99) 100 11/01/16 16:00 90 11/01/16 14:00 90 11/01/16 13:03 100 40 11/01/16 12:00 97.5 89 24 106/61 (76) 100 11/01/16 12:00 35 11/01/16 12:00 89 11/01/16 11:00 35 11/01/16 10:30 100 100 (Malinda Hines) Physical Exam Awake, eyes open, smiling today. focusing and tracking Neck: tracheostomy on supplemental oxygen CN: pupils 3-4 mm bilaterally Left flap sunken in Surgical incision is healing well Motor: minimal movement x 4 extremities Diffuse extremity edema Abdomen: soft NG tube feeding in place (Malinda Hines) Medications Current Medications Current Medications Medications (Trade) Dose Ordered Sig/Adali Route PRN Reason Start Time Stop Time Status Last Admin Dose Admin Chlorhexidine Gluconate (Peridex 0.12% Liq) 15 ml BID@08,20 MT 10/07/16 20:00 11/02/16 08:15 Ondansetron HCl (Zofran Inj) 4 mg Q6H PRN IV NAUSEA OR VOMITING 10/07/16 18:30 Calcium Gluconate (Calcium Gluconate Inj) 1 gm UNSCH PRN IV SEE LABEL COMMENTS 10/07/16 18:30 10/16/16 10:00 Potassium Chloride 100 ml @ 50 mls/hr UNSCH PRN IV POTASSIUM LESS THAN 4 10/07/16 18:30 11/02/16 08:54 Magnesium Sulfate 4 gm/Sodium Chloride 108 ml @ 108 mls/hr UNSCH PRN IV MAGNESIUM LESS THAN 2 10/07/16 18:30 Acetaminophen (Tylenol) 650 mg Q4H PRN PO TEMP >100.4 10/07/16 18:30 11/02/16 08:37 Dextrose (D50w (Vial) Inj) 50 ml UNSCH PRN IV PUSH HYPOGLYCEMIA - SEE COMMENTS 10/07/16 19:15 11/01/16 09:22 Glucagon (Glucagon Inj) 1 mg UNSCH PRN OTHER HYPOGLYCEMIA-SEE COMMENTS 10/07/16 19:15 Nimodipine (Nimotop) 60 mg Q4HR PO 10/13/16 00:00 11/02/16 23:59 11/02/16 08:11 Heparin Sodium (Porcine) (Heparin Inj) 5,000 units Q8HR SQ 10/14/16 22:00 11/02/16 04:46 Sodium Chloride (Sodium Chloride) 3 gm TID PO 10/15/16 13:15 11/02/16 08:10 Magnesium Oxide (Mag-Ox) 800 mg UNSCH PRN PO For Magnesium 1.2 - 1.6 mg/dL 10/16/16 09:15 Magnesium Sulfate 4 gm/Sodium Chloride 100 ml @ 50 mls/hr UNSCH PRN IV For Magnesium 0.9 - 1.1 mg/dL 10/16/16 09:15 Magnesium Sulfate 2 gm/Sodium Chloride 100 ml @ 50 mls/hr UNSCH PRN IV For Magnesium 1.2 - 1.6 mg/dL 10/16/16 09:15 Potassium Chloride 100 ml @ 50 mls/hr Q2H PRN IV For Potassium 2.8 - 3.2 mEq/L 10/16/16 09:15 10/16/16 12:22 Potassium Chloride 100 ml @ 50 mls/hr Q2H PRN IV For Potassium 3.3 - 3.5 mEq/L 10/16/16 09:15 Potassium Chloride 100 ml @ 50 mls/hr Q2H PRN IV For Potassium 2.8 - 3.2 mEq/L 10/16/16 09:15 10/27/16 13:26 Potassium Chloride 100 ml @ 25 mls/hr UNSCH PRN IV For Potassium 3.3 - 3.5 mEq/L 10/16/16 09:15 10/30/16 06:06 Potassium Phosphate (K-Phos) 2,000 mg Q4H PRN PO For Phosphorus < 2.5 mg/dL 10/16/16 09:15 Potassium Phosphate (K-Phos) 2,000 mg UNSCH PRN PO/TUBE SEE LABEL COMMENTS 10/16/16 09:15 Potassium Phosphate 30 mmol/ Sodium Chloride 260 ml @ 42 mls/hr UNSCH PRN IV SEE LABEL COMMENTS 10/16/16 09:15 10/24/16 20:39 Sodium Phosphate 30 mmol/Sodium Chloride 250 ml @ 42 mls/hr UNSCH PRN IV For Phosphorus < 2.5 mg/dL 10/16/16 09:15 10/22/16 06:46 Calcium Gluconate 1 gm/Sodium Chloride 110 ml @ 110 mls/hr UNSCH PRN IV For Protein Corrected Calcium 10/18/16 09:45 10/18/16 10:22 Lansoprazole (Prevacid Odt) 30 mg DAILY NG 10/20/16 09:00 11/02/16 08:10 Sodium Chloride (NS Flush) 2 ml UNSCH PRN IV FLUSH FLUSH AFTER USING IV ACCESS 10/19/16 09:45 Sodium Chloride (NS Flush) 2 ml BID IV FLUSH 10/19/16 21:00 11/02/16 08:11 Artificial Tears (Tears Naturale Opth Soln) 1 drop TID EACH EYE 10/19/16 13:00 11/02/16 08:11 Albuterol Sulfate (Albuterol Neb) 2.5 mg Q2HR NEB PRN INH SOB/WHEEZING 10/19/16 09:45 Miscellaneous Information 1 Q361D XX 10/19/16 09:45 Chlorhexidine Gluconate (Chlorhexidine 2% Cloth) Taper DAILY@04 TOP 10/20/16 04:00 10/16/17 03:59 10/23/16 04:20 Chlorhexidine Gluconate (Chlorhexidine 2% Cloth) 3 pack UNSCH PRN TOP HYGIENIC CARE 10/19/16 09:45 Insulin Aspart (NovoLOG SUPPLEMENTAL SCALE) 1 Q4HR SQ 10/20/16 12:00 10/27/16 11:57 Furosemide (Lasix Inj) 40 mg DAILY IV PUSH 10/28/16 09:00 11/02/16 08:10 Protein (Beneprotein Powder) 1 pack TID G-TUBE 10/29/16 13:00 11/01/16 18:05 Levetriacetam (Keppra Liq) 500 mg Q12HR NG 10/31/16 21:00 11/02/16 08:11 Lactulose (Lactulose Liq) 30 ml QID OG-TUBE 11/01/16 09:00 Phenytoin (Dilantin Liq) 100 mg Q8HR PO 11/01/16 14:00 11/02/16 04:47 Oxycodone HCl (Roxicodone Intensol Liq) 10 mg Q4H PRN PO pain 1-6 11/01/16 15:00 11/02/16 02:46 Hydromorphone HCl (Dilaudid Pf Inj) 0.5 mg Q4H PRN IV PUSH pain 7-10 or not taking po 11/01/16 15:00 Haloperidol Lactate (Haldol Inj) 5 mg Q4H PRN IV PUSH agitation 11/01/16 15:00 Melatonin (Melatonin) 5 mg HS PO 11/01/16 21:00 11/01/16 20:48 Diltiazem HCl (Cardizem) 90 mg Q6HR PO 11/02/16 12:00 (Malinda Hines) Medical Decision Making MDM Remarks 56 y/o male with 1. Subarachnoid hemorrhage, status post coiling posterior communicating artery aneurysm. s/p left decompressive craniectomy Vasospasms, s/p endovascular verapamil infusions 10/13/16, 10/17/16, 10/19/16. Neurologically exam continues to improve 2. Possible seizures. Remains on Keppra and Cerebyx 3. Respiratory failure, improving, s/p tracheostomy (Malinda Hines) Plan Plan Remarks cont critical care cont therapy and rehab efforts neuro exam improving (Malinda Hines) Attending Statement The exam, history, and the medical decision-making described in the above note were completed with the assistance of the mid-level provider. I reviewed and agree with the findings presented. I attest that I had a [id number] encounter with the patient on the same day, and personally performed and documented my assessment and findings in the medical record. (George Perry MD) Malinda Hines Nov 02, 2016 10:31 George Perry MD Nov 06, 2016 17:47
[2016-11-02] MEDS: HYDROmorphone HCL PF 1 MG/ML VIAL IV PUSH PRN (10:49)
[2016-11-02] MEDS: DILTIAZEM HCL 90 MG TAB PO SCH ×3 (12:46→22:48)
[2016-11-02 15:18] LABS: BLOOD, URINE SMALL (NEG); GLUCOSE,URINE NEG (NEG); HYALINE CAST, URINE 1 /lpf (RARE); KETONE, URINE NEG (NEG); NITRITE,URINE NEG (NEG); SQUAMOUS EPITHELIAL CELL URINE <1 /hpf (0-5); URINE COLOR YELLOW (YELLW/STRAW)
[2016-11-02 15:21] LABS: COMMENT (UR) CATH-CULT NOT IND; CULTURE IF INDICATED CATH CULTURE NOT IND
[2016-11-02] MEDS ORDERED: Vancomycin Consult Pharmacy 1 EA OTHER SCH (15:30)
[2016-11-02] MEDS: CEFEPIME INJ 2,000 MG in SODIUM CHLORIDE 0.9% INJ 100 ML IV SCH ×2 (16:01→23:06)
[2016-11-02] MEDS: metroNIDAZOLE 500 MG INJ 100 ML IV SCH ×2 (16:01→20:24)
[2016-11-02] MEDS: VANCOMYCIN INJ 1,250 MG in SODIUM CHLOR 0.9% 250 ML INJ 250 ML IV SCH (17:48)
[2016-11-02 20:10] LABS: C. DIFF EPI 027 PRESUMPTIVE NEGATIVE (NEGATIVE)
[2016-11-02] MEDS: MELATONIN 5 MG TAB PO SCH (20:24)
[2016-11-03] VITALS (17 sets, daily range): BP systolic 109–130; BP diastolic 66–86; PULSE 87–110; RESP 16–33; TEMP 98.6–100.2; O2SAT 97–100
[2016-11-03] MEDS: oxyCODONE HCL ORAL CONC 20 MG/ML SYRINGE PO PRN ×3 (00:49→09:40)
[2016-11-03] MEDS: VANCOMYCIN INJ 1,250 MG in SODIUM CHLOR 0.9% 250 ML INJ 250 ML IV SCH ×3 (00:49→17:30)
--- NOTE | 2016-11-03 03:47 | RADRPT ---
EXAM DATE/TIME: 11/03/2016 02:38 [facility] COMPARISON: CHEST SINGLE AP, October 22, 2016, 13:54. INDICATIONS : Short of breath. MEDICAL HISTORY : Seizures. Subarachnoid hemorrhage. Hypertension. SURGICAL HISTORY : Left craniotomy. Ventriculostomy catheter ENCOUNTER: Subsequent ACUITY: 2 weeks PAIN SCORE: Non-responsive. LOCATION: Bilateral chest FINDINGS: 2 portable frontal views of the chest were performed. Tracheostomy tube observed. Nasogastric tube wi th the tip just past the GE junction. A right basilar consolidation. Left lung is clear. Interstitial prominence with emphysematous changes particularly involving the right upper lobe. No effusions. Hea rt is normal in size. CONCLUSION: 1. Right lower lobe infiltrate. 2. Emphysematous changes. Santos Crockett Jr., MD on November 03, 2016 at 3:44 Board Certified Radiologist. This report was verified electronically.
[2016-11-03] MEDS: INSULIN ASPART SUPPLEMENTAL SCALE SQ SCH ×2 (04:00→12:00)
[2016-11-03] MEDS: CHLORHEXIDINE GLUCONATE 2 % 1 PACK (2 CLOTHS) TOP SCH ×2 (04:00→21:43)
[2016-11-03] MEDS: PHENYTOIN SUSP 100 MG/4 ML CUP PO SCH ×3 (05:03→21:51)
[2016-11-03] MEDS: metroNIDAZOLE 500 MG INJ 100 ML IV SCH ×4 (05:03→21:52)
[2016-11-03] MEDS: HEPARIN SODIUM - SQ 10,000 UNITS/ML VIAL SQ SCH ×3 (05:03→21:52)
[2016-11-03] MEDS: DILTIAZEM HCL 90 MG TAB PO SCH ×3 (05:03→17:30)
[2016-11-03 05:16] LABS: HEMATOCRIT 24.3 % (39.0-51.0); MEAN CELL VOLUME 97.6 FL (80.0-100.0); MEAN CORPUSCULAR HEMOGLOBIN 31.9 PG (27.0-34.0); MEAN CORPUSCULAR HGB CONC 32.7 % (32.0-36.0); PLATELET COUNT 171 TH/MM3 (150-450); RED BLOOD COUNT 2.49 MIL/MM3 (4.50-5.90); RED CELL DISTRIBUTION WIDTH 14.2 % (11.6-17.2); REVIEW FLAG FINAL; WHITE BLOOD COUNT 8.1 TH/MM3 (4.0-11.0)
[2016-11-03 05:43] LABS: BICARBONATE 29.7 MEQ/L (21.0-32.0); POTASSIUM 3.4 MEQ/L (3.5-5.1)
[2016-11-03] MEDS: LACTULOSE SYRUP 20 GM/30 ML CUP OG-TUBE SCH ×3 (08:25→17:30)
[2016-11-03] MEDS: CEFEPIME INJ 2,000 MG in SODIUM CHLORIDE 0.9% INJ 100 ML IV SCH ×2 (08:26→17:28)
[2016-11-03] MEDS: BENEPROTEIN POWDER 1 PACK G-TUBE SCH ×3 (08:27→17:31)
[2016-11-03] MEDS: ARTIFICIAL TEARS OPTH SOLN 15 ML BTL EACH EYE SCH ×3 (08:27→17:31)
[2016-11-03] MEDS: CHLORHEXIDINE 0.12% (ORAL KIT) 15 ML CUP MT SCH ×2 (08:27→20:00)
[2016-11-03] MEDS: levETIRAcetam 500 MG/5 ML UDC NG SCH ×2 (08:28→21:51)
[2016-11-03] MEDS: SODIUM CHLORIDE 1 GRAM TAB PO SCH ×3 (08:28→17:30)
[2016-11-03] MEDS: LANSOPRAZOLE SOLUTAB 30 MG TAB NG SCH (08:28)
[2016-11-03] MEDS: SODIUM CHLORIDE 0.9% FLUSH 10 ML FLUSH IV FLUSH SCH ×2 (08:28→21:00)
[2016-11-03] MEDS: FUROSEMIDE 40 MG/4 ML VIAL IV PUSH SCH (09:00)
[2016-11-03] MEDS: POTASSIUM CHLOR 20 MEQ PREMIX 100 ML IV PRN (09:40)
--- NOTE | 2016-11-03 11:14 | HHI.NSPN ---
Note Status Status: Progress Note Interval History Interval History This is a 56-year-old male brought to the emergency room as an emergency transfer from another institution with history of intracranial bleed. He was transferred from [facility] and [facility]. Apparently the patient said that patient earlier this morning was coming down the stairs when he started feeling some left-sided weakness and numbness. He called 911 and by the time EMS arrived they detected severe neurological deficits and called a stroke alert. No seizure activity reported. No tongue biting. No incontinence of stool or urine. Patient was taken to [facility]. Apparently he was not able to move his right side . When patient arrived his mental status started to decline and he was intubated emergently in the ER for airway protection. A CT scan of the head showed extensive subarachnoid bleed. In addition he had a sizable subdural hematoma. He was brought emergently on the ventilator. He was on a propofol drip and well sedated. GCS was 3. He was on a Cardene drip and blood pressure was in the 120s. Neurosurgical consultation was requested 10/08. POD #1 Open eyes and follows commands 10/12. Doing very well. Neurologically stable. Patient is in restraints secondary to pulling out his Maldonado multiple times. 10/13. Much more lethargic, difficult to speak with new aphasia 10/14. Improved after angiography. Today he developed new onset of aphasia and right hemiparesis 10/17. Intubated and sedated. Lung infiltrates dense bilaterally, reflected in shunting and problems with oxygenation. 10/18: underwent endovascular verapamil infusion to left MCA vasospasm yesterday. TCD today pending. left flap pak today. Intubated and sedated. continues to be on multiple pressors. on 3% NS. 10/19: currently unstable for travel for repeat CT Head this am. no changes with neuro checks, remains intubated, sedated. pupils equal. continues on multiple pressors support 10/20: intubated and mildly sedated. remains on multiple pressors. pneumonia worsening. TCD this am reports slight increase in flow velocity to left, he underwent cerebral angiography yesterday with endovascular verapamil infusion right ICA. 10/21: intubated, sedated on fentanyl and versed. On Nimbex. 10/25: off Nimbex. Mildly opening eyes today. 10/26: opening eyes more today, ?focusing 10/27: intubated, minimal eye opening. not following commands. 10/28: appears more awake, following commands, focusing and tracked. shook head no when asked if doing ok. 10/31: remains intubated, tracking more today, not following with extremities 11/01: nursing reports intermittently follows commands to upper extremities. for tracheostomy today. 11/02: s/p tracheostomy, smiling today, following commands. 11/03: smiling and nodding appropriately. PT at bedside. Labs, Micro, & Vital Signs Results Date Time Temp Pulse Resp B/P (MAP) Pulse Ox O2 Delivery O2 Flow Rate FiO2 11/03/16 08:59 97 30 11/03/16 08:59 30 11/03/16 06:00 99.3 90 16 114/76 (89) 97 11/03/16 06:00 87 11/03/16 04:08 100 30 11/03/16 04:00 30 11/03/16 04:00 90 11/03/16 02:00 90 11/03/16 01:08 100 30 11/03/16 00:00 99.6 90 18 114/70 (85) 100 11/03/16 00:00 90 11/03/16 00:00 30 11/02/16 22:00 93 11/02/16 20:59 100 30 11/02/16 20:00 100.0 96 18 127/79 (95) 100 11/02/16 20:00 96 11/02/16 20:00 30 11/02/16 18:00 96 11/02/16 16:14 100 30 11/02/16 16:00 99.1 97 16 129/81 (97) 100 11/02/16 16:00 30 11/02/16 16:00 97 11/02/16 14:00 91 11/02/16 13:15 16 11/02/16 12:00 30 11/02/16 12:00 95 11/02/16 12:00 99.1 95 20 141/96 (111) 100 11/02/16 11:15 30 Constitutional Vital Signs Date Time Temp Pulse Resp B/P (MAP) Pulse Ox O2 Delivery O2 Flow Rate FiO2 11/03/16 08:59 97 30 11/03/16 08:59 30 11/03/16 06:00 99.3 90 16 114/76 (89) 97 11/03/16 06:00 87 11/03/16 04:08 100 30 11/03/16 04:00 30 11/03/16 04:00 90 11/03/16 02:00 90 11/03/16 01:08 100 30 11/03/16 00:00 99.6 90 18 114/70 (85) 100 11/03/16 00:00 90 11/03/16 00:00 30 11/02/16 22:00 93 11/02/16 20:59 100 30 11/02/16 20:00 100.0 96 18 127/79 (95) 100 11/02/16 20:00 96 11/02/16 20:00 30 11/02/16 18:00 96 11/02/16 16:14 100 30 11/02/16 16:00 99.1 97 16 129/81 (97) 100 11/02/16 16:00 30 11/02/16 16:00 97 11/02/16 14:00 91 11/02/16 13:15 16 11/02/16 12:00 30 11/02/16 12:00 95 11/02/16 12:00 99.1 95 20 141/96 (111) 100 11/02/16 11:15 30 Review of Systems ROS Limitations: Clinical Condition (tracheostomy) Physical Exam Awake, eyes open, smiling today. focusing and tracking. nodding appropriately to questions Neck: tracheostomy on supplemental oxygen CN: pupils 3-4 mm bilaterally Left flap sunken in Surgical incision is healing well Motor: minimal movement x 4 extremities, UE>LE Diffuse extremity edema. area of necrosis to distal fingers and toes Medications Current Medications Current Medications Medications (Trade) Dose Ordered Sig/Adali Route PRN Reason Start Time Stop Time Status Last Admin Dose Admin Chlorhexidine Gluconate (Peridex 0.12% Liq) 15 ml BID@08,20 MT 10/07/16 20:00 11/03/16 08:27 Ondansetron HCl (Zofran Inj) 4 mg Q6H PRN IV NAUSEA OR VOMITING 10/07/16 18:30 Calcium Gluconate (Calcium Gluconate Inj) 1 gm UNSCH PRN IV SEE LABEL COMMENTS 10/07/16 18:30 10/16/16 10:00 Potassium Chloride 100 ml @ 50 mls/hr UNSCH PRN IV POTASSIUM LESS THAN 4 10/07/16 18:30 11/03/16 09:40 Magnesium Sulfate 4 gm/Sodium Chloride 108 ml @ 108 mls/hr UNSCH PRN IV MAGNESIUM LESS THAN 2 10/07/16 18:30 Acetaminophen (Tylenol) 650 mg Q4H PRN PO TEMP >100.4 10/07/16 18:30 11/02/16 08:37 Dextrose (D50w (Vial) Inj) 50 ml UNSCH PRN IV PUSH HYPOGLYCEMIA - SEE COMMENTS 10/07/16 19:15 11/01/16 09:22 Glucagon (Glucagon Inj) 1 mg UNSCH PRN OTHER HYPOGLYCEMIA-SEE COMMENTS 10/07/16 19:15 Heparin Sodium (Porcine) (Heparin Inj) 5,000 units Q8HR SQ 10/14/16 22:00 11/03/16 05:03 Sodium Chloride (Sodium Chloride) 3 gm TID PO 10/15/16 13:15 11/03/16 08:28 Magnesium Oxide (Mag-Ox) 800 mg UNSCH PRN PO For Magnesium 1.2 - 1.6 mg/dL 10/16/16 09:15 Magnesium Sulfate 4 gm/Sodium Chloride 100 ml @ 50 mls/hr UNSCH PRN IV For Magnesium 0.9 - 1.1 mg/dL 10/16/16 09:15 Magnesium Sulfate 2 gm/Sodium Chloride 100 ml @ 50 mls/hr UNSCH PRN IV For Magnesium 1.2 - 1.6 mg/dL 10/16/16 09:15 Potassium Chloride 100 ml @ 50 mls/hr Q2H PRN IV For Potassium 2.8 - 3.2 mEq/L 10/16/16 09:15 10/16/16 12:22 Potassium Chloride 100 ml @ 50 mls/hr Q2H PRN IV For Potassium 3.3 - 3.5 mEq/L 10/16/16 09:15 Potassium Chloride 100 ml @ 50 mls/hr Q2H PRN IV For Potassium 2.8 - 3.2 mEq/L 10/16/16 09:15 10/27/16 13:26 Potassium Chloride 100 ml @ 25 mls/hr UNSCH PRN IV For Potassium 3.3 - 3.5 mEq/L 10/16/16 09:15 10/30/16 06:06 Potassium Phosphate (K-Phos) 2,000 mg Q4H PRN PO For Phosphorus < 2.5 mg/dL 10/16/16 09:15 Potassium Phosphate (K-Phos) 2,000 mg UNSCH PRN PO/TUBE SEE LABEL COMMENTS 10/16/16 09:15 Potassium Phosphate 30 mmol/ Sodium Chloride 260 ml @ 42 mls/hr UNSCH PRN IV SEE LABEL COMMENTS 10/16/16 09:15 10/24/16 20:39 Sodium Phosphate 30 mmol/Sodium Chloride 250 ml @ 42 mls/hr UNSCH PRN IV For Phosphorus < 2.5 mg/dL 10/16/16 09:15 10/22/16 06:46 Calcium Gluconate 1 gm/Sodium Chloride 110 ml @ 110 mls/hr UNSCH PRN IV For Protein Corrected Calcium 10/18/16 09:45 10/18/16 10:22 Lansoprazole (Prevacid Odt) 30 mg DAILY NG 10/20/16 09:00 11/03/16 08:28 Sodium Chloride (NS Flush) 2 ml UNSCH PRN IV FLUSH FLUSH AFTER USING IV ACCESS 10/19/16 09:45 Sodium Chloride (NS Flush) 2 ml BID IV FLUSH 10/19/16 21:00 11/03/16 08:28 Artificial Tears (Tears Naturale Opth Soln) 1 drop TID EACH EYE 10/19/16 13:00 11/03/16 08:27 Albuterol Sulfate (Albuterol Neb) 2.5 mg Q2HR NEB PRN INH SOB/WHEEZING 10/19/16 09:45 Miscellaneous Information 1 Q361D XX 10/19/16 09:45 Chlorhexidine Gluconate (Chlorhexidine 2% Cloth) Taper DAILY@04 TOP 10/20/16 04:00 10/16/17 03:59 10/23/16 04:20 Chlorhexidine Gluconate (Chlorhexidine 2% Cloth) 3 pack UNSCH PRN TOP HYGIENIC CARE 10/19/16 09:45 Insulin Aspart (NovoLOG SUPPLEMENTAL SCALE) 1 Q4HR SQ 10/20/16 12:00 10/27/16 11:57 Furosemide (Lasix Inj) 40 mg DAILY IV PUSH 10/28/16 09:00 11/02/16 08:10 Protein (Beneprotein Powder) 1 pack TID G-TUBE 10/29/16 13:00 11/03/16 08:27 Levetriacetam (Keppra Liq) 500 mg Q12HR NG 10/31/16 21:00 11/03/16 08:28 Lactulose (Lactulose Liq) 30 ml QID OG-TUBE 11/01/16 09:00 11/03/16 08:25 Phenytoin (Dilantin Liq) 100 mg Q8HR PO 11/01/16 14:00 11/03/16 05:03 Oxycodone HCl (Roxicodone Intensol Liq) 10 mg Q4H PRN PO pain 1-6 11/01/16 15:00 11/03/16 09:40 Hydromorphone HCl (Dilaudid Pf Inj) 0.5 mg Q4H PRN IV PUSH pain 7-10 or not taking po 11/01/16 15:00 11/02/16 10:49 Haloperidol Lactate (Haldol Inj) 5 mg Q4H PRN IV PUSH agitation 11/01/16 15:00 Melatonin (Melatonin) 5 mg HS PO 11/01/16 21:00 11/02/16 20:24 Diltiazem HCl (Cardizem) 90 mg Q6HR PO 11/02/16 12:00 11/03/16 05:03 Pharmacy Profile Note 0 ml @ 0 mls/hr UNSCH OTHER 11/02/16 15:30 Vancomycin HCl 1250 mg/Sodium Chloride 262.5 ml @ 250 mls/hr Q8H IV 11/02/16 18:00 11/03/16 09:33 Cefepime HCl 2000 mg/Sodium Chloride 100 ml @ 200 mls/hr Q8H IV 11/02/16 17:00 11/03/16 08:26 Metronidazole 100 ml @ 100 mls/hr Q6H IV 11/02/16 16:00 11/03/16 09:33 Miscellaneous Information SPECIFIC LAB TO BE DRAWN:VANCOMYCIN TROUGH DATE TO... ONCE ONCE .XX 11/03/16 17:45 11/03/16 17:46 Medical Decision Making MDM Remarks 56 y/o male with 1. Subarachnoid hemorrhage, status post coiling posterior communicating artery aneurysm. s/p left decompressive craniectomy Vasospasms, s/p endovascular verapamil infusions 10/13/16, 10/17/16, 10/19/16. Neurologically exam continues to improve 2. Possible seizures. Remains on Keppra and Cerebyx 3. Respiratory failure, improving, s/p tracheostomy Plan Plan Remarks cont critical care cont therapy and rehab efforts neuro exam improving Malinda Hines Nov 03, 2016 11:14
--- NOTE | 2016-11-03 13:57 | HHI.CCPN ---
Subjective Remarks/Hospital Course 10/07: 56-year-old male presents with intracranial bleed. Patient was transferred from [facility] at [facility]. As per the paramedics and the nurse who assisted the patient said that patient earlier this morning was coming down the stairs when he started feeling some left-sided weakness and numbness. He called 911 and by the time EMS arrived they detected some deficit and called a stroke alert. Patient was taken to [facility]. When patient arrived his mental status started to decline and he was intubated emergently in the ER. A CAT scan of the head showed subarachnoid and subdural bleed. He was taking emergently to an angio suite for coiling of the aneurysm and later on to OR for subdural hematoma evacuation. 10/08: Remains sedated, orally intubated on mechanical ventilation. Arouses off sedation and following commands with both upper extremities earlier. Ventriculostomy in place. ICP 7, CPP mid 80s. 10/09: Remains sedated, orally intubated on mechanical ventilation. Arouses off sedation and follows commands with both upper extremities. Ventriculostomy in place. 10/10: Remains sedated, orally intubated on mechanical ventilation. Arouses off sedation and follows commands and both upper extremities. Ventriculostomy in place. ICP 5. Failed C Pap trial yesterday. 10/11: Extubated on 10/10, tolerating well. Awake and alert. Appears confused, moving all 4 extremities. Ventriculostomy discontinued today by neurosurgery 10/13: Patient has developed severe vasospasm at the left MCA territory on TCD's that was treated with IV route verapamil 10/14: patient extubated overnight. was originally following commands and neuro intact. TCDs this morning with increase LIs over yesterday, particularly Left MCA territory. On my evaluation early this morning, patient was aphasic, not moving the right side of his body, not following commands. SBP 140s at that time. net 2L negative/24h and uop almost 1L/hr at the time. I immediately bolused with 2L NS iv, placed arterial and central lines, started phenylephrine , increased SBP to goal 200 - 220 mmHg. called interventional neuroradiology and accompanied patient down personally to IR for IA verapamil again. I remained with the patient managing his hemodynamics down in IR and providing anxiolysis IV. I accompanied patient back up to [facility] where patient again was neuro intact and following commands. Sodium downtrending to 135 and urine studies and serum osms suggestive of urine sodium losses and high uop. added Florinef to mitigate sodium losses, and increased mivf to 500cc/hr to maintain euvolemia. later in the day patient decompensated requiring intubation for hyoxemia, cxr suggestive of pulmonary edema. 2d echo with evidence of EF 40%, septal hypokinesis, moderate MR. On levo, vaso, phenylephrine. difficult to get to goal SBP 200 mmHg, likely due to myocardial dysfunction. decreased goal to 180 - 200 mmHg to balance cardiac vs. neurologic goals. 10/15 Patient was discussed with Dr. Sullivan at shift change. Isuprel was initiated in effort to improve cardiac output as dobutamine not available and concerned with use of milrinone given long half life. Systolic blood pressure was relatively stable with perhaps some modest improvement from 170s to 180s for several hours after initiation. Notified when patient became abruptly hypotensive despite vasopressin, levophed 20 mcg/min, Greyson-Synephrine 300 mcg/m. He was also hypoxemic with sats in 80s despite PCV with PEEP 8 and FiO2 100%, respiratory rate in the 30s. He had decreased breath sounds bilaterally and was concerned for air trapping so removed from mechanical ventilation and bagged without improvement. Placed patient back on mechanical ventilation and provide recruitment maneuvers and increased PEEP to 12 which resulted in improvement of sats to 88% to 92%. Ordered Flolan. Discontinued isuprel and initiated epinephrine. R radial art line would not draw blood . Performed u/s guided femoral artery stick to confirm hypoxemia on ABG given poor wave form on pulse ox and PaO2 was 58. Placed new L radial art line and this resulted in ~ 30 point increase in SBP relative to prior line but patient ultimately on vasopressin, levophed 30 micrograms per minute, Greyson-Synephrine 300 micrograms per minute, epinephrine 12 mcg/min and unable to maintain target pressure (SBP in 150s). Given calcium chloride. patient with shaking movements all extremities, pupils 2mm and sluggish, no eye deviation. Rigors seemed most likely but unable to emergently rule out seizures so loaded with fosphenytoin to avoid secondary injury from seizure activity. WBC increasing and concern for HCAP so pancultured and placed on cefepime, vancomycin, azithromycin. Hydrocortisone 100 mg IV every 8 hours initiated due to concern for septic shock in a patient who has been refractory to all other above measures. Patient is to hemodynamically unstable and hypoxic for transport for neurologic imaging. Urine output has declined to 180-200 ML's per hour. Back off maintenance IV fluids to 200 ML's per hour. Bedside echo demonstrates decreased LV function with normal RV contractility and collapsible IVC suggesting ongoing maintenance fluid administration is appropriate. 10/15 additional visit: continued to deteriorate throughout the day. Seen multiple times. hypoxic on 100% fio2, flolan. required nimbex drip to maintain. repeat bedside critical care ultrasound still demonstrates severe LV dysfunction , decompressed RV, IVC more dilated than previous echo overnight, however still with respiratory variation. femoral arterial line placed with better waveform and higher pressure (likely SVR too high to allow accurate measurement of radial pressure). Pulse contour analysis without stroke volume variation, CI 3.6. SV 52mL. trialed additional albumin without improvement in hemodynamics. uop slower than before, but still significant salt wasting in the urine- sodium dropped to 125 from 132 despite already on 3% nacl infusion and aggressive sodium replacements. forced to give 23% nacl and salt tabs. declining clinically despite maximal therapy. 10/16: continues to be maximally critically ill. LV dysfunction persists. starting to get volume overloaded, but given concern for ongoing cerebral vasospasm, unable to actively diurese patient. sodium wasting persists, but uop downtrending slightly. very hypokalemic today, likely due to steroids. remains intubated, sedated, paralyzed, on flolan. CXR today appears worse with worsening airspace disease. Lactate remains slightly elevated, confirming persistent shock. 10/17: Lung infiltrates dense bilaterally, reflected in shunting and problems with oxygenation. Developed vasospasm on TCDs and required angiogram and intra- arterial verapamil again today. 10/18: SBP 160 - 170 range. FiO2 0.55. BNP > 5000. Not tolerating attempts at maintaining higher BP due to worsening heart failure. Several episodes of vasospasm. Watch daily TCDs closely. Sputum no growth. 10/19: Tmax 99.8. Currently 99. Remains on 4 vasopressors and epoprostenol 10/20: Yesterday. Returned IR for intra-arterial calcium channel jose infusion for vasospasm. Transcranial Dopplers today Still pending. Remains on significant vasopressor support. 10/21: Good response to diuresis, check BNP. TCDs pending. Heart failure remains a major problem. 10/22: CVP 21 - 22, finger tips blue, digits pale white despite high dose milrinone dilation. Greyson and vaso much reduced. Will try diltiazem gtt for digital ischemia. Urine remains > 200/hr and proximal limbs are well perfused. This digital ischemia appears to be a local phenomenon ala Raynaud's. New subcutaneous emphysema right anterior chest wall. 10/23: Old CVL removed. Fingertips remain marginal, some necrotic despite diltiazem and milrinone treatment for digital ischemia. Cardiac output > 7 liters/min and urine copious, confirming good perfusion pressure and flow. This continues to be a local phenomenon of the digits ala Raynaud's. We are trying to wean vasopressors off but are required to maintaining a cerebral perfusion pressure suitable for the treatment of aneurysmal subarachnoid bleed. Frankly, the importance of brain function eclipses fingertips. 10/24: Afebrile. Well perfused except for index finger left hand, few tips fingers right. Arms and hands warmer with resolving circumferential edema. Diltiazem and milrinone gtt continue. Greyson to 10 mics/min. 10/25: Digits are warm and well perfused except left index and right 4th fingertips; demarcated and not viable. Dry. Diltiazem and milrinone infusions continue to help reverse digital ischemia. 10/26: Forced diuresis continues and BP remains nicely elevated. Hands and digits warm aside from left index and right 4th fingertips which have demarcated. 10/27: Good response to diuretics. Perfusion pressure and documented flow excellent. Continue to wean vent. 10/28: Start SBTs. Fluid balance back toward normal. 10/29: Tolerating SBTs. Lowering sedation. Edema resolving. 10/30: Tolerating tube feeds, will taper off TPN and remove central line. Continue diuretics. 10/31: net -3L over 24h. mental status at baseline. tolerating CPAP, but does not have the mental status to protect airway. will likely need trach/peg. placement will be a problem due to lack of funding. 11/01: no changes or improvements. discussed with yesterday and she "does not want any more setbacks" and would prefer trach versus trial of extubation. I agree with her assessment. plan for trach today. placement is still a significant problem. net -2L/24h. 11/02: wbc uptrending, febrile. antonio cultured, started empiric abx today. failed SBT overnight and placed back on rate. Subjective 11/03: Tolerating CPAP today, following commands. Low-grade fever cultures pending. WBC count normal today Objective Vital Signs Date Time Temp Pulse Resp B/P (MAP) Pulse Ox O2 Delivery O2 Flow Rate FiO2 11/03/16 11:51 100 30 11/03/16 08:00 99.1 106 24 109/66 (80) 11/01/16 16:13 T-piece 5.00 Intake and Output 11/03/16 11/03/16 11/04/16 08:00 16:00 00:00 Intake Total 1452 ml Output Total 700 ml Balance 752 ml Result Diagram: 11/03/16 0423 11/03/16 0423 Imaging Last Impressions Chest X-Ray 10/20/16 0000 Signed Impressions: Service Date/Time: October 03:47 - CONCLUSION: 1. Stable tubes and lines. 2. Stable bilateral lower lung zone airspace disease. 3. Stable small right pleural effusion. 4. No significant interval change. Kev Vergara MD Transcranial Doppler Study Complete 10/19/16 0600 Signed Impressions: Service Date/Time: Wednesday, October 19, 2016 08:02 - CONCLUSION: Suspect developing right MCA vasospasm Yosvany Polk MD Liver Ultrasound 10/19/16 0000 Signed Impressions: Service Date/Time: Wednesday, October 19, 2016 11:20 - CONCLUSION: 1. Sludge filled gallbladder with thickened wall. 2. Moderate size bilateral pleural effusions and mild upper abdominal ascites. Santos Vazquez MD Head CT 10/17/16 0000 Signed Impressions: Service Date/Time: Monday, October 17, 2016 15:06 - CONCLUSION: Ventricles are slightly larger without ventriculostomy. Edema in the left hemisphere the brain herniating through the operative site. Remington Woodward MD FACR Cerebral Arteriogram 10/17/16 0000 Signed Impressions: Service Date/Time: Monday, October 17, 2016 00:00 - CONCLUSION: 1. Uncompensated spasmolysis of the left middle cerebral artery Harvey Morejon MD Infusion Non-thrombolysis 10/14/16 1103 Signed Impressions: Service Date/Time: Friday, October 14, 2016 10:21 - CONCLUSION: 1. Uncomplicated infusion for spasmolysis Harvey Morejon MD Neck CTA 10/07/16 0000 Signed Impressions: Service Date/Time: Friday, October 07, 2016 15:03 - CONCLUSION: 1. Mild carotid bulb atherosclerotic calcification bilaterally. However, no significant stenosis is present in either internal carotid artery. 2. Paranasal sinus mucoperiosteal thickening. 3. Please refer to brain CTA report for description of the intracranial findings. Yosvany Ramirez MD Head CTA 10/07/16 0000 Signed Impressions: Service Date/Time: Friday, October 07, 2016 15:03 - CONCLUSION: 1. 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 2. Large left subdural hematoma measuring 1.3 cm in depth with a significant, 1.6 cm left to right subfalcine shift. Joni Shelton MD Objective Remarks GENERAL: 56-year-old male, trached HEAD: Status post left craniectomy. Incision is clean dry and intact EYES: About 3 mm bilaterally and reactive NECK: trachea midline. 8.0 shiley cuffed trach CARDIOVASCULAR: Tachycardic, RR. RESPIRATORY: Diminished breath sounds bilateral lower lobes. GASTROINTESTINAL: Abdomen soft, non-tender, nondistended. MUSCULOSKELETAL: Ischemic changes to left index finger tip and right 4th fingertip, and majority of R toes NEURO EXAM: Opens eyes follows command. No evident focal deficits Procedures 10/13 Four-vessel cerebral angiography with verapamil treatment of vasospasm A/P Assessment and Plan Neuro/Psych Status post left frontotemporal parietal craniectomy 10/08 for evacuation subdural hematoma/duraplasty Left subdural hematoma - 1.3 cm with 1.6 shift left to right Subarachnoid hemorrhage contents 5, Carroll grade 4 - left P-comm status post 4 coiling 10/08 - TCD's daily: 10/19 - vasospasm -intra-arterial verapamil - Nimodipine 60 mg every 4 hours for vasospasm to complete 21 days. Initiated - Levetiracetam 500 mg per tube twice a day with phenytoin 100mg per tube q8h. If fever persists and culture-negative consider changing phenytoin - 10/13 and 10/14 and 10/17) 10/19 left MCA territory vasospasm, status post successful verapamil treatment by IR with 20 mg verapamil - SBP goal now reduced to <140. - 10/17 CT brain - less hemisphere edema with herniation through left craniotomy site - Dr. Perry/neurosurgery Respiratory: Acute hypoxic Respiratory failure-ARDS- resolving. Noncardiogenic/neurogenic pulmonary edema - Ventilator bundle, nebs, hob at 30 degrees. - Albuterol/age-appropriate versus every 6 hours with albuterol aerosols every 2 hours. Dyspnea -- continue daily SBTs. -- s/p Trach Dr. Sullivan/Dr. Collazo 11/01 -- continue SBTs and trach collar trials daily Cardiovascular: Severe shock - septic and cardiogenic- resolved. Severe LV dysfunction secondary to SAH - persistent. Elevated troponin- secondary to SAH, unlikely to be ACS. - resolved. Pulmonary hypertension - continue diuresis. Echocardiogram 10/14/16 revealed EF 40-45%. Septal hypokinesis. Moderate MR. Severe pulmonary hypertension with pulmonary artery pressures estimated 61 mmHg Renal: Cerebral Salt Wasting/SIADH --Strict I/Os - BNP > 5000 on 10/18 See below. Creatinine currently within normal limits Resolved FEN/GI: Severe hyponatremia Hypokalemia Elevated transaminases Hyperammonia -Currently on sodium chloride 3gm po TID - ICU electrolyte protocol - aggressively replace potassium losses. - Lansoprazole 30 mg by tube daily for GI prophylaxis -Docusate sodium 100 mg twice a day, senna liquid 8.6 mg twice a day and polyethylene glycol 3350 17 g twice a day for bowel regimen Lactulose 30 cc QID. ammonia 46 on 10/31, repeat tomorrow Heme/ID: Septic Shock- resolved. Possible HCAP New Fever, leukocytosis Digital Ischemia with necrosis - Local phenomenon. CO always hyperdynamic range, urine copious. - Diltiazem and milrinone infusions continuous for 6 days now. -- Digits have demarcated. cardizem PO (for digital ischemia, Raynaud's) Pertinent cultures 10/15 - blood cultures - 1 out of 4 anaerobic gram-negative cocci possibly Veillonella 10/15 - sputum - beta strep not A, strep species 10/19 cultures NG 10/21 1/ bottles blood cultures coag negative staph. Resent 11/01 blood, sputum, urine cultures. started vancomycin, cefepime, flagyl. De-escalate antibiotics if cultures negative send c. diff. unlikely to be related to diarrhea, as diarrhea is likely to be secondary to lactulose. However, no increase in fio2 or change in sputum production to suggest VAP as a source, u/a clean, no indwelling lines. Endocrine: Presumed Adrenal Insufficiency -Discontinued fludrocortisone 10/18. Monitor sodium 6 hours. Sliding-scale insulin with Novulog -Accu-Cheks every 4 hours to maintain euglycemia [place] protocol. d/c levemir bid. Taper off cortisone -> done Prophylaxis: GI Prophylaxis - lansoprazole DVT Prophylaxis-- SCDs, heparin subcutaneous Lines: - 10/14 right SC TLC, removed 10/22 - 10/14 right radial art line, removed 10/14 - 10/15 left radial art line, removed 10/16 - 10/15 left femoral art line - 10/22 left groin triple lumen placed, d/c 10/30 - d/c ramires. Overall impression: Improved neurological status. Digital ischemia has improved. Milrinone improved CO but ischemia to two fingertips persists. BNP elevated today consistent with acute on chronic heart failure.. Urine output continues to confirm good renal perfusion. He will lose fingertips due to heart failure and local digital vasospasm. Aside from demarcated fingers he is warm and well perfused. The patient's digital ischemia developed when he had a cardiac output over 8.0 liters/min, CVP was over 20 mm Hg, and urine over 75 ml/hr for many days. BNP was elevated at 777. His hands and feet were warm but the fingers and toes became cold, white, nearly cadaveric. Neosynephrine was only vasopressor and it was at 30 units/min only. We stopped it immediately and started milrinone and cardizem iv infusions. Most fingers and toes responded well to the vascular dilators but a few digits demarcated and became necrotic. Anticoagulation was not an option in face of recent aneurysm rupture and gastritis. Patients with this degree of digital ischemia (severe Raynaud's) usually have an underlying illness such as malignancy, mixed connective tissue disorder, collagen vascular disease, rheumatoid disease, etc. This workup can progress after he has cleared exogenous steroids which were just stopped. He's in a pretty revved up inflammatory state now and the lab values will be altered by it. ready for placement, which has significant barriers. New fevers are concerning, but source elusive at this point. will cover broadly and culture. If the fever is related to stress response from trach, could de-escalate at 48h negative cultures. Continue to monitor Level 2 Harvey Bar MD Nov 03, 2016 13:57
[2016-11-03] MEDS ORDERED: POTASSIUM CHLOR 20 MEQ PREMIX 100 ML IV SCH (15:00)
[2016-11-03] MEDS ORDERED: PHARMACY ORDERED LAB ONE (17:45)
[2016-11-03] MEDS: MELATONIN 5 MG TAB PO SCH (21:51)
[2016-11-04] VITALS (12 sets, daily range): BP systolic 122–156; BP diastolic 75–91; PULSE 88–110; RESP 23–36; TEMP 98.2–99.8; O2SAT 93–100
[2016-11-04] MEDS: DILTIAZEM HCL 90 MG TAB PO SCH ×5 (00:16→23:48)
[2016-11-04] MEDS: CEFEPIME INJ 2,000 MG in SODIUM CHLORIDE 0.9% INJ 100 ML IV SCH ×4 (00:16→23:50)
[2016-11-04] MEDS: LACTULOSE SYRUP 20 GM/30 ML CUP OG-TUBE SCH ×5 (00:41→21:43)
[2016-11-04] MEDS: INSULIN ASPART SUPPLEMENTAL SCALE SQ SCH ×2 (00:42→12:00)
[2016-11-04] MEDS ORDERED: PHARMACY ORDERED LAB ONE (01:45)
[2016-11-04] MEDS: VANCOMYCIN INJ 1,250 MG in SODIUM CHLOR 0.9% 250 ML INJ 250 ML IV SCH (02:20)
[2016-11-04] MEDS: metroNIDAZOLE 500 MG INJ 100 ML IV SCH ×2 (04:30→09:26)
[2016-11-04 05:21] LABS: HEMATOCRIT 26.6 % (39.0-51.0); MEAN CELL VOLUME 97.3 FL (80.0-100.0); MEAN CORPUSCULAR HEMOGLOBIN 32.1 PG (27.0-34.0); PLATELET COUNT 182 TH/MM3 (150-450); RED BLOOD COUNT 2.73 MIL/MM3 (4.50-5.90); RED CELL DISTRIBUTION WIDTH 14.2 % (11.6-17.2); REVIEW FLAG FINAL; WHITE BLOOD COUNT 9.5 TH/MM3 (4.0-11.0)
[2016-11-04 05:43] LABS: BICARBONATE 31.3 MEQ/L (21.0-32.0); POTASSIUM 3.2 MEQ/L (3.5-5.1)
[2016-11-04] MEDS: PHENYTOIN SUSP 100 MG/4 ML CUP PO SCH ×3 (06:37→21:43)
[2016-11-04] MEDS: HEPARIN SODIUM - SQ 10,000 UNITS/ML VIAL SQ SCH ×3 (06:38→21:43)
[2016-11-04] MEDS: SODIUM CHLORIDE 0.9% FLUSH 10 ML FLUSH IV FLUSH SCH ×2 (08:05→21:42)
[2016-11-04] MEDS: ARTIFICIAL TEARS OPTH SOLN 15 ML BTL EACH EYE SCH ×3 (09:00→18:10)
[2016-11-04] MEDS: BENEPROTEIN POWDER 1 PACK G-TUBE SCH ×3 (09:00→18:00)
[2016-11-04] MEDS: CHLORHEXIDINE 0.12% (ORAL KIT) 15 ML CUP MT SCH ×2 (09:25→20:00)
[2016-11-04] MEDS: LANSOPRAZOLE SOLUTAB 30 MG TAB NG SCH (09:25)
[2016-11-04] MEDS: FUROSEMIDE 40 MG/4 ML VIAL IV PUSH SCH (09:25)
[2016-11-04] MEDS: levETIRAcetam 500 MG/5 ML UDC NG SCH ×2 (09:25→21:43)
[2016-11-04] MEDS: POTASSIUM CHLOR 20 MEQ PREMIX 100 ML IV PRN ×3 (09:26→13:37)
[2016-11-04] MEDS: SODIUM CHLORIDE 1 GRAM TAB PO SCH (10:18)
--- NOTE | 2016-11-04 10:44 | HHI.NSPN ---
(Malinda Hines) Note Status Status: Progress Note (Malinda Hines) Interval History Interval History This is a 56-year-old male brought to the emergency room as an emergency transfer from another institution with history of intracranial bleed. He was transferred from [facility] and [facility]. Apparently the patient said that patient earlier this morning was coming down the stairs when he started feeling some left-sided weakness and numbness. He called 911 and by the time EMS arrived they detected severe neurological deficits and called a stroke alert. No seizure activity reported. No tongue biting. No incontinence of stool or urine. Patient was taken to [facility]. Apparently he was not able to move his right side . When patient arrived his mental status started to decline and he was intubated emergently in the ER for airway protection. A CT scan of the head showed extensive subarachnoid bleed. In addition he had a sizable subdural hematoma. He was brought emergently on the ventilator. He was on a propofol drip and well sedated. GCS was 3. He was on a Cardene drip and blood pressure was in the 120s. Neurosurgical consultation was requested 10/08. POD #1 Open eyes and follows commands 10/12. Doing very well. Neurologically stable. Patient is in restraints secondary to pulling out his [place] multiple times. 10/13. Much more lethargic, difficult to speak with new aphasia 10/14. Improved after angiography. Today he developed new onset of aphasia and right hemiparesis 10/17. Intubated and sedated. Lung infiltrates dense bilaterally, reflected in shunting and problems with oxygenation. 10/18: underwent endovascular verapamil infusion to left MCA vasospasm yesterday. TCD today pending. left flap pak today. Intubated and sedated. continues to be on multiple pressors. on 3% NS. 10/19: currently unstable for travel for repeat CT Head this am. no changes with neuro checks, remains intubated, sedated. pupils equal. continues on multiple pressors support 10/20: intubated and mildly sedated. remains on multiple pressors. pneumonia worsening. TCD this am reports slight increase in flow velocity to left, he underwent cerebral angiography yesterday with endovascular verapamil infusion right ICA. 10/21: intubated, sedated on fentanyl and versed. On Nimbex. 10/25: off Nimbex. Mildly opening eyes today. 10/26: opening eyes more today, ?focusing 10/27: intubated, minimal eye opening. not following commands. 10/28: appears more awake, following commands, focusing and tracked. shook head no when asked if doing ok. 10/31: remains intubated, tracking more today, not following with extremities 11/01: nursing reports intermittently follows commands to upper extremities. for tracheostomy today. 11/02: s/p tracheostomy, smiling today, following commands. 11/03: smiling and nodding appropriately. PT at bedside. 11/04: mouthing some words today, no acute events overnight (Malinda Hines) Labs, Micro, & Vital Signs Results Date Time Temp Pulse Resp B/P (MAP) Pulse Ox O2 Delivery O2 Flow Rate FiO2 11/04/16 09:00 96 T-piece 6.00 28 11/04/16 06:00 99 11/04/16 04:00 98.9 106 31 154/82 (106) 100 11/04/16 04:00 106 11/04/16 02:00 96 11/04/16 00:00 110 11/04/16 00:00 98.2 110 36 156/81 (106) 100 11/03/16 22:00 108 11/03/16 20:00 108 11/03/16 20:00 98.6 108 33 127/86 (100) 100 11/03/16 18:00 102 11/03/16 16:00 99.0 104 28 130/82 (98) 100 11/03/16 16:00 104 11/03/16 14:00 103 11/03/16 12:20 100 T-piece 5.00 40 11/03/16 12:00 100.2 108 24 113/76 (88) 100 11/03/16 12:00 108 11/03/16 11:51 100 30 Constitutional Vital Signs Date Time Temp Pulse Resp B/P (MAP) Pulse Ox O2 Delivery O2 Flow Rate FiO2 11/04/16 09:00 96 T-piece 6.00 28 11/04/16 06:00 99 11/04/16 04:00 98.9 106 31 154/82 (106) 100 11/04/16 04:00 106 11/04/16 02:00 96 11/04/16 00:00 110 11/04/16 00:00 98.2 110 36 156/81 (106) 100 11/03/16 22:00 108 11/03/16 20:00 108 11/03/16 20:00 98.6 108 33 127/86 (100) 100 11/03/16 18:00 102 11/03/16 16:00 99.0 104 28 130/82 (98) 100 11/03/16 16:00 104 11/03/16 14:00 103 11/03/16 12:20 100 T-piece 5.00 40 11/03/16 12:00 100.2 108 24 113/76 (88) 100 11/03/16 12:00 108 11/03/16 11:51 100 30 (Malinda Hinse) Physical Exam Awake, eyes open, smiling, and mouthing some words today. focusing and tracking. nodding appropriately to questions Neck: tracheostomy on supplemental oxygen CN: pupils 3-4 mm bilaterally Left flap sunken in Surgical incision is healing well without signs of infection Motor: minimal movement x 4 extremities, UE>LE Diffuse extremity edema. area of necrosis to distal fingers and toes (Malinda Hines) Medications Current Medications Current Medications Medications (Trade) Dose Ordered Sig/Adali Route PRN Reason Start Time Stop Time Status Last Admin Dose Admin Chlorhexidine Gluconate (Peridex 0.12% Liq) 15 ml BID@08,20 MT 10/07/16 20:00 11/04/16 09:25 Ondansetron HCl (Zofran Inj) 4 mg Q6H PRN IV NAUSEA OR VOMITING 10/07/16 18:30 Calcium Gluconate (Calcium Gluconate Inj) 1 gm UNSCH PRN IV SEE LABEL COMMENTS 10/07/16 18:30 10/16/16 10:00 Potassium Chloride 100 ml @ 50 mls/hr UNSCH PRN IV POTASSIUM LESS THAN 4 10/07/16 18:30 11/03/16 09:40 Magnesium Sulfate 4 gm/Sodium Chloride 108 ml @ 108 mls/hr UNSCH PRN IV MAGNESIUM LESS THAN 2 10/07/16 18:30 Acetaminophen (Tylenol) 650 mg Q4H PRN PO TEMP >100.4 10/07/16 18:30 11/02/16 08:37 Dextrose (D50w (Vial) Inj) 50 ml UNSCH PRN IV PUSH HYPOGLYCEMIA - SEE COMMENTS 10/07/16 19:15 11/01/16 09:22 Glucagon (Glucagon Inj) 1 mg UNSCH PRN OTHER HYPOGLYCEMIA-SEE COMMENTS 10/07/16 19:15 Heparin Sodium (Porcine) (Heparin Inj) 5,000 units Q8HR SQ 10/14/16 22:00 11/04/16 06:38 Sodium Chloride (Sodium Chloride) 3 gm TID PO 10/15/16 13:15 11/04/16 10:18 Magnesium Oxide (Mag-Ox) 800 mg UNSCH PRN PO For Magnesium 1.2 - 1.6 mg/dL 10/16/16 09:15 Magnesium Sulfate 4 gm/Sodium Chloride 100 ml @ 50 mls/hr UNSCH PRN IV For Magnesium 0.9 - 1.1 mg/dL 10/16/16 09:15 Magnesium Sulfate 2 gm/Sodium Chloride 100 ml @ 50 mls/hr UNSCH PRN IV For Magnesium 1.2 - 1.6 mg/dL 10/16/16 09:15 Potassium Chloride 100 ml @ 50 mls/hr Q2H PRN IV For Potassium 2.8 - 3.2 mEq/L 10/16/16 09:15 11/04/16 09:27 Potassium Chloride 100 ml @ 50 mls/hr Q2H PRN IV For Potassium 3.3 - 3.5 mEq/L 10/16/16 09:15 Potassium Chloride 100 ml @ 50 mls/hr Q2H PRN IV For Potassium 2.8 - 3.2 mEq/L 10/16/16 09:15 10/27/16 13:26 Potassium Chloride 100 ml @ 25 mls/hr UNSCH PRN IV For Potassium 3.3 - 3.5 mEq/L 10/16/16 09:15 10/30/16 06:06 Potassium Phosphate (K-Phos) 2,000 mg Q4H PRN PO For Phosphorus < 2.5 mg/dL 10/16/16 09:15 Potassium Phosphate (K-Phos) 2,000 mg UNSCH PRN PO/TUBE SEE LABEL COMMENTS 10/16/16 09:15 Potassium Phosphate 30 mmol/ Sodium Chloride 260 ml @ 42 mls/hr UNSCH PRN IV SEE LABEL COMMENTS 10/16/16 09:15 10/24/16 20:39 Sodium Phosphate 30 mmol/Sodium Chloride 250 ml @ 42 mls/hr UNSCH PRN IV For Phosphorus < 2.5 mg/dL 10/16/16 09:15 10/22/16 06:46 Calcium Gluconate 1 gm/Sodium Chloride 110 ml @ 110 mls/hr UNSCH PRN IV For Protein Corrected Calcium 10/18/16 09:45 10/18/16 10:22 Lansoprazole (Prevacid Odt) 30 mg DAILY NG 10/20/16 09:00 11/04/16 09:25 Sodium Chloride (NS Flush) 2 ml UNSCH PRN IV FLUSH FLUSH AFTER USING IV ACCESS 10/19/16 09:45 Sodium Chloride (NS Flush) 2 ml BID IV FLUSH 10/19/16 21:00 11/04/16 08:05 Artificial Tears (Tears Naturale Opth Soln) 1 drop TID EACH EYE 10/19/16 13:00 11/04/16 09:00 Albuterol Sulfate (Albuterol Neb) 2.5 mg Q2HR NEB PRN INH SOB/WHEEZING 10/19/16 09:45 Miscellaneous Information 1 Q361D XX 10/19/16 09:45 Chlorhexidine Gluconate (Chlorhexidine 2% Cloth) Taper DAILY@04 TOP 10/20/16 04:00 10/16/17 03:59 10/23/16 04:20 Chlorhexidine Gluconate (Chlorhexidine 2% Cloth) 3 pack UNSCH PRN TOP HYGIENIC CARE 10/19/16 09:45 Furosemide (Lasix Inj) 40 mg DAILY IV PUSH 10/28/16 09:00 11/04/16 09:25 Protein (Beneprotein Powder) 1 pack TID G-TUBE 10/29/16 13:00 11/03/16 17:31 Levetriacetam (Keppra Liq) 500 mg Q12HR NG 10/31/16 21:00 11/04/16 09:25 Lactulose (Lactulose Liq) 30 ml QID OG-TUBE 11/01/16 09:00 11/04/16 09:25 Phenytoin (Dilantin Liq) 100 mg Q8HR PO 11/01/16 14:00 11/04/16 06:37 Oxycodone HCl (Roxicodone Intensol Liq) 10 mg Q4H PRN PO pain 1-6 11/01/16 15:00 11/03/16 09:40 Hydromorphone HCl (Dilaudid Pf Inj) 0.5 mg Q4H PRN IV PUSH pain 7-10 or not taking po 11/01/16 15:00 11/02/16 10:49 Haloperidol Lactate (Haldol Inj) 5 mg Q4H PRN IV PUSH agitation 11/01/16 15:00 Melatonin (Melatonin) 5 mg HS PO 11/01/16 21:00 11/03/16 21:51 Diltiazem HCl (Cardizem) 90 mg Q6HR PO 11/02/16 12:00 11/04/16 06:37 Pharmacy Profile Note 0 ml @ 0 mls/hr UNSCH OTHER 11/02/16 15:30 Vancomycin HCl 1250 mg/Sodium Chloride 262.5 ml @ 250 mls/hr Q8H IV 11/02/16 18:00 Future Hold 11/04/16 02:20 Cefepime HCl 2000 mg/Sodium Chloride 100 ml @ 200 mls/hr Q8H IV 11/02/16 17:00 11/04/16 09:00 Metronidazole 100 ml @ 100 mls/hr Q6H IV 11/02/16 16:00 11/04/16 09:26 Insulin Aspart (NovoLOG SUPPLEMENTAL SCALE) 1 Q12H SQ 11/03/16 12:00 11/04/16 00:42 (Malinda Hines) Medical Decision Making MDM Remarks 56 y/o male with 1. Subarachnoid hemorrhage, status post coiling posterior communicating artery aneurysm. s/p left decompressive craniectomy Vasospasms, s/p endovascular verapamil infusions 10/13/16, 10/17/16, 10/19/16. Neurologically exam continues to improve 2. Possible seizures. Remains on Keppra and Cerebyx 3. Respiratory failure, improving, s/p tracheostomy (Malinda Hines) Plan Plan Remarks cont critical care cont therapy and rehab efforts neuro exam improving (Malinda Hines) Attending Statement The patient tolerated the procedure well without complication. The exam, history , and the medical decision-making described in the above note were completed with the assistance of the mid-level provider. I reviewed and agree with the findings presented. I attest that I had a [id number] encounter with the patient on the same day, and personally performed and documented my assessment and findings in the medical record. (George Perry MD) Malinda Hines Nov 04, 2016 10:44 George Perry MD Nov 06, 2016 20:50
--- NOTE | 2016-11-04 11:10 | HHI.CCPN ---
Subjective Remarks/Hospital Course 10/07: 56-year-old male presents with intracranial bleed. Patient was transferred from [facility] at [facility]. As per the paramedics and the nurse who assisted the patient said that patient earlier this morning was coming down the stairs when he started feeling some left-sided weakness and numbness. He called 911 and by the time EMS arrived they detected some deficit and called a stroke alert. Patient was taken to [facility]. When patient arrived his mental status started to decline and he was intubated emergently in the ER. A CAT scan of the head showed subarachnoid and subdural bleed. He was taking emergently to an angio suite for coiling of the aneurysm and later on to OR for subdural hematoma evacuation. 10/08: Remains sedated, orally intubated on mechanical ventilation. Arouses off sedation and following commands with both upper extremities earlier. Ventriculostomy in place. ICP 7, CPP mid 80s. 10/09: Remains sedated, orally intubated on mechanical ventilation. Arouses off sedation and follows commands with both upper extremities. Ventriculostomy in place. 10/10: Remains sedated, orally intubated on mechanical ventilation. Arouses off sedation and follows commands and both upper extremities. Ventriculostomy in place. ICP 5. Failed C Pap trial yesterday. 10/11: Extubated on 10/10, tolerating well. Awake and alert. Appears confused, moving all 4 extremities. Ventriculostomy discontinued today by neurosurgery 10/13: Patient has developed severe vasospasm at the left MCA territory on TCD's that was treated with IV route verapamil 10/14: patient extubated overnight. was originally following commands and neuro intact. TCDs this morning with increase LIs over yesterday, particularly Left MCA territory. On my evaluation early this morning, patient was aphasic, not moving the right side of his body, not following commands. SBP 140s at that time. net 2L negative/24h and uop almost 1L/hr at the time. I immediately bolused with 2L NS iv, placed arterial and central lines, started phenylephrine , increased SBP to goal 200 - 220 mmHg. called interventional neuroradiology and accompanied patient down personally to IR for IA verapamil again. I remained with the patient managing his hemodynamics down in IR and providing anxiolysis IV. I accompanied patient back up to [facility] where patient again was neuro intact and following commands. Sodium downtrending to 135 and urine studies and serum osms suggestive of urine sodium losses and high uop. added Florinef to mitigate sodium losses, and increased mivf to 500cc/hr to maintain euvolemia. later in the day patient decompensated requiring intubation for hyoxemia, cxr suggestive of pulmonary edema. 2d echo with evidence of EF 40%, septal hypokinesis, moderate MR. On levo, vaso, phenylephrine. difficult to get to goal SBP 200 mmHg, likely due to myocardial dysfunction. decreased goal to 180 - 200 mmHg to balance cardiac vs. neurologic goals. 10/15 Patient was discussed with Dr. Sullivan at shift change. Isuprel was initiated in effort to improve cardiac output as dobutamine not available and concerned with use of milrinone given long half life. Systolic blood pressure was relatively stable with perhaps some modest improvement from 170s to 180s for several hours after initiation. Notified when patient became abruptly hypotensive despite vasopressin, levophed 20 mcg/min, Greyson-Synephrine 300 mcg/m. He was also hypoxemic with sats in 80s despite PCV with PEEP 8 and FiO2 100%, respiratory rate in the 30s. He had decreased breath sounds bilaterally and was concerned for air trapping so removed from mechanical ventilation and bagged without improvement. Placed patient back on mechanical ventilation and provide recruitment maneuvers and increased PEEP to 12 which resulted in improvement of sats to 88% to 92%. Ordered Flolan. Discontinued isuprel and initiated epinephrine. R radial art line would not draw blood . Performed u/s guided femoral artery stick to confirm hypoxemia on ABG given poor wave form on pulse ox and PaO2 was 58. Placed new L radial art line and this resulted in ~ 30 point increase in SBP relative to prior line but patient ultimately on vasopressin, levophed 30 micrograms per minute, Greyson-Synephrine 300 micrograms per minute, epinephrine 12 mcg/min and unable to maintain target pressure (SBP in 150s). Given calcium chloride. patient with shaking movements all extremities, pupils 2mm and sluggish, no eye deviation. Rigors seemed most likely but unable to emergently rule out seizures so loaded with fosphenytoin to avoid secondary injury from seizure activity. WBC increasing and concern for HCAP so pancultured and placed on cefepime, vancomycin, azithromycin. Hydrocortisone 100 mg IV every 8 hours initiated due to concern for septic shock in a patient who has been refractory to all other above measures. Patient is to hemodynamically unstable and hypoxic for transport for neurologic imaging. Urine output has declined to 180-200 ML's per hour. Back off maintenance IV fluids to 200 ML's per hour. Bedside echo demonstrates decreased LV function with normal RV contractility and collapsible IVC suggesting ongoing maintenance fluid administration is appropriate. 10/15 additional visit: continued to deteriorate throughout the day. Seen multiple times. hypoxic on 100% fio2, flolan. required nimbex drip to maintain. repeat bedside critical care ultrasound still demonstrates severe LV dysfunction , decompressed RV, IVC more dilated than previous echo overnight, however still with respiratory variation. femoral arterial line placed with better waveform and higher pressure (likely SVR too high to allow accurate measurement of radial pressure). Pulse contour analysis without stroke volume variation, CI 3.6. SV 52mL. trialed additional albumin without improvement in hemodynamics. uop slower than before, but still significant salt wasting in the urine- sodium dropped to 125 from 132 despite already on 3% nacl infusion and aggressive sodium replacements. forced to give 23% nacl and salt tabs. declining clinically despite maximal therapy. 10/16: continues to be maximally critically ill. LV dysfunction persists. starting to get volume overloaded, but given concern for ongoing cerebral vasospasm, unable to actively diurese patient. sodium wasting persists, but uop downtrending slightly. very hypokalemic today, likely due to steroids. remains intubated, sedated, paralyzed, on flolan. CXR today appears worse with worsening airspace disease. Lactate remains slightly elevated, confirming persistent shock. 10/17: Lung infiltrates dense bilaterally, reflected in shunting and problems with oxygenation. Developed vasospasm on TCDs and required angiogram and intra- arterial verapamil again today. 10/18: SBP 160 - 170 range. FiO2 0.55. BNP > 5000. Not tolerating attempts at maintaining higher BP due to worsening heart failure. Several episodes of vasospasm. Watch daily TCDs closely. Sputum no growth. 10/19: Tmax 99.8. Currently 99. Remains on 4 vasopressors and epoprostenol 10/20: Yesterday. Returned IR for intra-arterial calcium channel jose infusion for vasospasm. Transcranial Dopplers today Still pending. Remains on significant vasopressor support. 10/21: Good response to diuresis, check BNP. TCDs pending. Heart failure remains a major problem. 10/22: CVP 21 - 22, finger tips blue, digits pale white despite high dose milrinone dilation. Greyson and vaso much reduced. Will try diltiazem gtt for digital ischemia. Urine remains > 200/hr and proximal limbs are well perfused. This digital ischemia appears to be a local phenomenon ala Raynaud's. New subcutaneous emphysema right anterior chest wall. 10/23: Old CVL removed. Fingertips remain marginal, some necrotic despite diltiazem and milrinone treatment for digital ischemia. Cardiac output > 7 liters/min and urine copious, confirming good perfusion pressure and flow. This continues to be a local phenomenon of the digits ala Raynaud's. We are trying to wean vasopressors off but are required to maintaining a cerebral perfusion pressure suitable for the treatment of aneurysmal subarachnoid bleed. Frankly, the importance of brain function eclipses fingertips. 10/24: Afebrile. Well perfused except for index finger left hand, few tips fingers right. Arms and hands warmer with resolving circumferential edema. Diltiazem and milrinone gtt continue. Greyson to 10 mics/min. 10/25: Digits are warm and well perfused except left index and right 4th fingertips; demarcated and not viable. Dry. Diltiazem and milrinone infusions continue to help reverse digital ischemia. 10/26: Forced diuresis continues and BP remains nicely elevated. Hands and digits warm aside from left index and right 4th fingertips which have demarcated. 10/27: Good response to diuretics. Perfusion pressure and documented flow excellent. Continue to wean vent. 10/28: Start SBTs. Fluid balance back toward normal. 10/29: Tolerating SBTs. Lowering sedation. Edema resolving. 10/30: Tolerating tube feeds, will taper off TPN and remove central line. Continue diuretics. 10/31: net -3L over 24h. mental status at baseline. tolerating CPAP, but does not have the mental status to protect airway. will likely need trach/peg. placement will be a problem due to lack of funding. 11/01: no changes or improvements. discussed with yesterday and she "does not want any more setbacks" and would prefer trach versus trial of extubation. I agree with her assessment. plan for trach today. placement is still a significant problem. net -2L/24h. 11/02: wbc uptrending, febrile. antonio cultured, started empiric abx today. failed SBT overnight and placed back on rate. Subjective 11/03: Tolerating CPAP today, following commands. Low-grade fever cultures pending. WBC count normal today 11/04: Remains on TPs since yesterday. Neuro exam remains stable. Follows commands weakly. Na 152 Objective Vital Signs Date Time Temp Pulse Resp B/P (MAP) Pulse Ox O2 Delivery O2 Flow Rate FiO2 11/04/16 09:00 96 T-piece 6.00 28 11/04/16 06:00 99 11/04/16 04:00 98.9 31 154/82 (106) Intake and Output 11/04/16 11/04/16 11/05/16 08:00 16:00 00:00 Intake Total 1684 ml Output Total 1050 ml Balance 634 ml Result Diagram: 11/04/16 0500 11/04/16 0500 Other Results Microbiology Date/Time Source Procedure Growth Status 11/02/16 18:15 Sputum Endotracheal Gram Stain - Final Complete 11/02/16 18:15 Sputum Endotracheal Sputum Culture - Final HEAVY GROWTH NORMAL RESPIRATORY YOAN Complete Imaging Last Impressions Chest X-Ray 10/20/16 0000 Signed Impressions: Service Date/Time: October 03:47 - CONCLUSION: 1. Stable tubes and lines. 2. Stable bilateral lower lung zone airspace disease. 3. Stable small right pleural effusion. 4. No significant interval change. Kev Vergara MD Transcranial Doppler Study Complete 10/19/16 0600 Signed Impressions: Service Date/Time: Wednesday, October 19, 2016 08:02 - CONCLUSION: Suspect developing right MCA vasospasm Yosvany Polk MD Liver Ultrasound 10/19/16 0000 Signed Impressions: Service Date/Time: Wednesday, October 19, 2016 11:20 - CONCLUSION: 1. Sludge filled gallbladder with thickened wall. 2. Moderate size bilateral pleural effusions and mild upper abdominal ascites. Santos Vazquez MD Head CT 10/17/16 0000 Signed Impressions: Service Date/Time: Monday, October 17, 2016 15:06 - CONCLUSION: Ventricles are slightly larger without ventriculostomy. Edema in the left hemisphere the brain herniating through the operative site. Remington Woodward MD FACR Cerebral Arteriogram 10/17/16 0000 Signed Impressions: Service Date/Time: Monday, October 17, 2016 00:00 - CONCLUSION: 1. Uncompensated spasmolysis of the left middle cerebral artery Harvey Morejon MD Infusion Non-thrombolysis 10/14/16 1103 Signed Impressions: Service Date/Time: Friday, October 14, 2016 10:21 - CONCLUSION: 1. Uncomplicated infusion for spasmolysis Harvey Morejon MD Neck CTA 10/07/16 0000 Signed Impressions: Service Date/Time: Friday, October 07, 2016 15:03 - CONCLUSION: 1. Mild carotid bulb atherosclerotic calcification bilaterally. However, no significant stenosis is present in either internal carotid artery. 2. Paranasal sinus mucoperiosteal thickening. 3. Please refer to brain CTA report for description of the intracranial findings. Yosvany Ramirez MD Head CTA 10/07/16 0000 Signed Impressions: Service Date/Time: Friday, October 07, 2016 15:03 - CONCLUSION: 1. 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 2. Large left subdural hematoma measuring 1.3 cm in depth with a significant, 1.6 cm left to right subfalcine shift. Joni Shelton MD Objective Remarks GENERAL: 56-year-old male, trached HEAD: Status post left craniectomy. Left flap sunken, Incision healing EYES: About 3 mm bilaterally and reactive NECK: trachea midline. 8.0 shiley cuffed trach CARDIOVASCULAR: S1-S2 normal no murmurs RESPIRATORY: Diminished breath sounds bilateral lower lobes. GASTROINTESTINAL: Abdomen soft, non-tender, nondistended. MUSCULOSKELETAL: Ischemic changes to left index finger tip and right 4th fingertip, and majority of R toes NEURO EXAM: Opens eyes follows command, right approximately weaker than left. Attempts to mouth words Procedures 10/13 Four-vessel cerebral angiography with verapamil treatment of vasospasm A/P Assessment and Plan Neuro/Psych Status post left frontotemporal parietal craniectomy 10/08 for evacuation subdural hematoma/duraplasty Left subdural hematoma - 1.3 cm with 1.6 shift left to right Subarachnoid hemorrhage Alvarado and Rodriguez 5, Carroll grade 4 - left P-comm status post 4 coiling 10/08 - Nimodipine 60 mg every 4 hours for vasospasm completed 21 days. Initiated . s/p TCD's daily: 10/19 - vasospasm -intra-arterial verapamil. - Levetiracetam 500 mg per tube twice a day with phenytoin 100mg per tube q8h. If fever persists and culture-negative consider changing phenytoin - 10/13 and 10/14 and 10/17) 10/19 left MCA territory vasospasm, status post successful verapamil treatment by IR with 20 mg verapamil - SBP goal now reduced to <140. - 10/17 CT brain - less hemisphere edema with herniation through left craniotomy site - Dr. Perry/neurosurgery Respiratory: Acute hypoxic Respiratory failure-ARDS- resolved Noncardiogenic/neurogenic pulmonary edema -- Ventilator bundle, nebs, hob at 30 degrees. Remains on TP last 24 hours -- AlbuterolAtrovent every 6 hours with albuterol aerosols every 2 hours for Dyspnea -- continue TP 24/ as tolerated. increase activity, up to stretcher chair today -- s/p Trach Dr. Sullivan/Dr. Collazo 11/01 -- continue SBTs and trach collar trials daily Cardiovascular: Severe shock - septic and cardiogenic- resolved. Severe LV dysfunction secondary to SAH - persistent. Elevated troponin- secondary to SAH, unlikely to be ACS. - resolved. Pulmonary hypertension - continue diuresis. Free water replacement with half normal saline for 24 hours, free water through NG tube Echocardiogram 10/14/16 revealed EF 40-45%. Septal hypokinesis. Moderate MR. Severe pulmonary hypertension with pulmonary artery pressures estimated 61 mmHg Renal: Cerebral Salt Wasting/SIADH-resolved now hypernatremic --Strict I/Os See FEN below. Creatinine currently within normal limits Resolved FEN/GI: Severe hyponatremia-resolved now hypernatremic Hypokalemia Elevated transaminases Hyperammonemia -DC sodium chloride 3gm po TID - Half-normal saline for 24 hours free water 250 mL 4 times a day - ICU electrolyte protocol. aggressively replace potassium losses. - Lansoprazole 30 mg by tube daily for GI prophylaxis -Docusate sodium 100 mg twice a day, senna liquid 8.6 mg twice a day and polyethylene glycol 3350 17 g twice a day for bowel regimen Lactulose 30 cc QID. ammonia 46 on 10/31, repeat tomorrow Heme/ID: Septic Shock- resolved. Possible HCAP New Fever, leukocytosis Digital Ischemia with necrosis - Local phenomenon. CO always hyperdynamic range, urine copious. - Diltiazem and milrinone infusions continuous for 6 days now. -- Digits have demarcated. cardizem PO (for digital ischemia, Raynaud's) Pertinent cultures 10/15 - blood cultures - 1 out of 4 anaerobic gram-negative cocci possibly Veillonella 10/15 - sputum - beta strep not A, strep species 10/19 cultures NG 10/21 02/16 bottles blood cultures coag negative staph. Culture 11/01. coag neg stah 03/19 bottles Resent 11/01 blood, sputum, urine cultures. started vancomycin, cefepime, flagyl. DC Flagyl today C diff negative. DC vanc in 24-48 hours Endocrine: Presumed Adrenal Insufficiency -Discontinued fludrocortisone 10/18. Monitor sodium 6 hours. Sliding-scale insulin with Novulog -Accu-Cheks every 4 hours to maintain euglycemia [place] protocol. d/c levemir bid. Taper off cortisone -> done Prophylaxis: GI Prophylaxis - lansoprazole DVT Prophylaxis-- SCDs, heparin subcutaneous Lines: - 10/14 right SC TLC, removed 10/22 - 10/14 right radial art line, removed 10/14 - 10/15 left radial art line, removed 10/16 - 10/15 left femoral art line - 10/22 left groin triple lumen placed, d/c 10/30 - d/c ramires. Overall impression: Improved neurological status. Digital ischemia has improved. Milrinone improved CO but ischemia to two fingertips persists. BNP elevated today consistent with acute on chronic heart failure.. Urine output continues to confirm good renal perfusion. He will lose fingertips due to heart failure and local digital vasospasm. Aside from demarcated fingers he is warm and well perfused. The patient's digital ischemia developed when he had a cardiac output over 8.0 liters/min, CVP was over 20 mm Hg, and urine over 75 ml/hr for many days. BNP was elevated at 777. His hands and feet were warm but the fingers and toes became cold, white, nearly cadaveric. Neosynephrine was only vasopressor and it was at 30 units/min only. We stopped it immediately and started milrinone and cardizem iv infusions. Most fingers and toes responded well to the vascular dilators but a few digits demarcated and became necrotic. Anticoagulation was not an option in face of recent aneurysm rupture and gastritis. Patients with this degree of digital ischemia (severe Raynaud's) usually have an underlying illness such as malignancy, mixed connective tissue disorder, collagen vascular disease, rheumatoid disease, etc. This workup can progress after he has cleared exogenous steroids which were just stopped. He's in a pretty revved up inflammatory state now and the lab values will be altered by it. ready for placement, which has significant barriers. Level 2 Harvey Bar MD Nov 04, 2016 11:10
[2016-11-04] MEDS: SODIUM CHLOR 0.45% 1000 ML INJ 1,000 ML IV SCH ×2 (11:15→23:49)
--- NOTE | 2016-11-04 12:39 | PD.WCN.NOT ---
Wound Consult Description: Received consult for wound management of Pressure ulcer to sacral area. Communicated with: JOSE CRUZ Pak and Doctor Yosvany Recommendation: 1.Please cleanse buttock area gently with soap and water and pat dry. Apply thick layer of calazime barrier cream over sacrum, coccyx, and bilateral buttock areas and leave open to air. Ok to not remove all barrier cream when cleaning patient. Please do not scrub barrier cream off. 2. Cleanse partial thickness skin tears to bilateral hands with normal saline and cover with single layer Xeroform gauze dressing just over wound beds and cover with dry 4x4 gauze pads secured with rolled gauze and tape. Change dressings daily 3. Cleanse full thickness wound to L medial forearm with normal saline only and apply patsy thick coverage of Santyl ointment just over wound bed. Cover with dry 4x4 gauze pads and secure with rolled gauze and tape. Change dressing daily Continue to turn and resposition patient every 2 hours or PRN for comfort Additional Information: Patient seen on [address] [place] [address] for evaluation of pressure ulcer to sacral area.Patient is laying on regular [facility] bed. Bilateral hands are noted with dressings. JOSE CRUZ pak concerned about dressings to bilateral hands being appropriate and wounds are new.Removed dressings in place to reveal 3 bilateral partial thickness wounds to bilateral hands . Wounds appear to be clean skin tears. Wounds are dry and non draining. Cleansed wounds with normal saline and applied Xeroform gauze dressings just over wound beds and covered with dry 4x4 gauze pads, secured with rolled gauze and tape. Full thickness wound is noted to medial left forearm measuring ~4cm x ~2cm x necrotic tissue. Wound has scant sero-sanguinous drainage that is without odor. Wound bed presents with ~10% pink tissue and ~70% coverage of adherent eschar and ~20% coverage of adherent slough.Cleansed wound with normal saline and applied Xeroform in single layer just over wound bed. Covered with dry 4x4 gauze pad, rolled gauze and tape. Mellisa [facility] and appeals writer positioned patient to R side for assessment of sacral area. Large area of partial thickness skin loss is noted to bilateral buttocks, and coccyx area, with non blanchable, purple discolored, intact skin over sacrum.Wound appears to have been a DTI that has opened to partial thickness skin loss over bilateral buttocks and coccyx areas with intact DTI over sacrum. Cleansed wound with normal saline and patted dry. Applied thick layer of barrier cream over sacrum, coccyx and bilateral buttocks and left open to air. Positioned patient off bottom with pillow to support. Zina Rodney [facility] Nov 04, 2016 12:39
[2016-11-04] MEDS: CHLORHEXIDINE GLUCONATE 2 % 1 PACK (2 CLOTHS) TOP SCH (20:09)
[2016-11-04] MEDS: MELATONIN 5 MG TAB PO SCH (21:43)
[2016-11-05] VITALS (14 sets, daily range): BP systolic 101–129; BP diastolic 71–85; PULSE 78–98; RESP 22–31; TEMP 98–100.3; O2SAT 100
[2016-11-05] MEDS: DILTIAZEM HCL 90 MG TAB PO SCH ×3 (05:39→17:27)
[2016-11-05] MEDS: PHENYTOIN SUSP 100 MG/4 ML CUP PO SCH ×3 (05:39→20:15)
[2016-11-05] MEDS: HEPARIN SODIUM - SQ 10,000 UNITS/ML VIAL SQ SCH ×3 (05:40→20:15)
[2016-11-05 05:51] LABS: BICARBONATE 28.1 MEQ/L (21.0-32.0); POTASSIUM 3.8 MEQ/L (3.5-5.1)
[2016-11-05 05:56] LABS: AUTOMATED NEUTROPHIL # 6.2 TH/MM3 (1.8-7.7); BASOPHIL # 0.1 TH/MM3 (0-0.2); BASOPHIL % 1.4 % (0.0-2.0); EOSINOPHIL # 0.2 TH/MM3 (0-0.4); EOSINOPHIL % 2.8 % (0.0-4.0); HEMATOCRIT 28.3 % (39.0-51.0); HEMO FLAGS DIFF FINAL; LYMPHOCYTE # 1.2 TH/MM3 (1.0-4.8); MEAN CELL VOLUME 100.5 FL (80.0-100.0); MEAN CORPUSCULAR HEMOGLOBIN 32.2 PG (27.0-34.0); MONO % 7.8 % (0.0-8.0); PLATELET COUNT 160 TH/MM3 (150-450); RED BLOOD COUNT 2.81 MIL/MM3 (4.50-5.90); RED CELL DISTRIBUTION WIDTH 14.7 % (11.6-17.2); WHITE BLOOD COUNT 8.4 TH/MM3 (4.0-11.0)
--- NOTE | 2016-11-05 06:06 | RADRPT ---
EXAM DATE/TIME: 11/05/2016 04:39 [facility] COMPARISON: ABDOMEN KUB ONLY, October 21, 2016, 3:50. CHEST SINGLE AP, October 22, 2016, 13:54. CHEST SINGL E AP, November 03, 2016, 2:38. INDICATIONS : Respiratory disease. MEDICAL HISTORY : Seizures. Subarachnoid hemorrhage. Hypertension SURGICAL HISTORY : Left craniotomy. Ventriculostomy catheter ENCOUNTER: Subsequent ACUITY: 2 weeks PAIN SCORE: Non-responsive. LOCATION: Bilateral chest FINDINGS: Tracheostomy good position. Gastric tube side-port is below the level of the hemidiaphragm. Patchy infiltrates in the medial lower lungs bilaterally similar to prior exam. No focal areas of consolida tion. Both hemidiaphragms well delineated. CONCLUSION: Persistent non-consolidative infiltrates in the medial lower lungs. Santos Vazquez MD on November 05, 2016 at 6:03 Board Certified Radiologist. This report was verified electronically.
[2016-11-05] MEDS: LACTULOSE SYRUP 20 GM/30 ML CUP OG-TUBE SCH ×4 (08:49→20:15)
[2016-11-05] MEDS: FUROSEMIDE 40 MG/4 ML VIAL IV PUSH SCH (08:49)
[2016-11-05] MEDS: levETIRAcetam 500 MG/5 ML UDC NG SCH ×2 (08:49→20:15)
[2016-11-05] MEDS: CEFEPIME INJ 2,000 MG in SODIUM CHLORIDE 0.9% INJ 100 ML IV SCH ×2 (08:49→17:05)
[2016-11-05] MEDS: SODIUM CHLORIDE 0.9% FLUSH 10 ML FLUSH IV FLUSH SCH ×2 (08:50→21:00)
[2016-11-05] MEDS: CHLORHEXIDINE 0.12% (ORAL KIT) 15 ML CUP MT SCH ×2 (08:50→20:00)
[2016-11-05] MEDS: ARTIFICIAL TEARS OPTH SOLN 15 ML BTL EACH EYE SCH ×3 (08:50→17:27)
[2016-11-05] MEDS: LANSOPRAZOLE SOLUTAB 30 MG TAB NG SCH (08:50)
[2016-11-05] MEDS: BENEPROTEIN POWDER 1 PACK G-TUBE SCH ×3 (08:50→17:27)
--- NOTE | 2016-11-05 10:42 | HHI.CCPN ---
Subjective Remarks/Hospital Course 10/07: 56-year-old male presents with intracranial bleed. Patient was transferred from [facility] at [facility]. As per the paramedics and the nurse who assisted the patient said that patient earlier this morning was coming down the stairs when he started feeling some left-sided weakness and numbness. He called 911 and by the time EMS arrived they detected some deficit and called a stroke alert. Patient was taken to [facility]. When patient arrived his mental status started to decline and he was intubated emergently in the ER. A CAT scan of the head showed subarachnoid and subdural bleed. He was taking emergently to an angio suite for coiling of the aneurysm and later on to OR for subdural hematoma evacuation. 10/08: Remains sedated, orally intubated on mechanical ventilation. Arouses off sedation and following commands with both upper extremities earlier. Ventriculostomy in place. ICP 7, CPP mid 80s. 10/09: Remains sedated, orally intubated on mechanical ventilation. Arouses off sedation and follows commands with both upper extremities. Ventriculostomy in place. 10/10: Remains sedated, orally intubated on mechanical ventilation. Arouses off sedation and follows commands and both upper extremities. Ventriculostomy in place. ICP 5. Failed C Pap trial yesterday. 10/11: Extubated on 10/10, tolerating well. Awake and alert. Appears confused, moving all 4 extremities. Ventriculostomy discontinued today by neurosurgery 10/13: Patient has developed severe vasospasm at the left MCA territory on TCD's that was treated with IV route verapamil 10/14: patient extubated overnight. was originally following commands and neuro intact. TCDs this morning with increase LIs over yesterday, particularly Left MCA territory. On my evaluation early this morning, patient was aphasic, not moving the right side of his body, not following commands. SBP 140s at that time. net 2L negative/24h and uop almost 1L/hr at the time. I immediately bolused with 2L NS iv, placed arterial and central lines, started phenylephrine , increased SBP to goal 200 - 220 mmHg. called interventional neuroradiology and accompanied patient down personally to IR for IA verapamil again. I remained with the patient managing his hemodynamics down in IR and providing anxiolysis IV. I accompanied patient back up to [facility] where patient again was neuro intact and following commands. Sodium downtrending to 135 and urine studies and serum osms suggestive of urine sodium losses and high uop. added Florinef to mitigate sodium losses, and increased mivf to 500cc/hr to maintain euvolemia. later in the day patient decompensated requiring intubation for hyoxemia, cxr suggestive of pulmonary edema. 2d echo with evidence of EF 40%, septal hypokinesis, moderate MR. On levo, vaso, phenylephrine. difficult to get to goal SBP 200 mmHg, likely due to myocardial dysfunction. decreased goal to 180 - 200 mmHg to balance cardiac vs. neurologic goals. 10/15 Patient was discussed with Dr. Sullivan at shift change. Isuprel was initiated in effort to improve cardiac output as dobutamine not available and concerned with use of milrinone given long half life. Systolic blood pressure was relatively stable with perhaps some modest improvement from 170s to 180s for several hours after initiation. Notified when patient became abruptly hypotensive despite vasopressin, levophed 20 mcg/min, Greyson-Synephrine 300 mcg/m. He was also hypoxemic with sats in 80s despite PCV with PEEP 8 and FiO2 100%, respiratory rate in the 30s. He had decreased breath sounds bilaterally and was concerned for air trapping so removed from mechanical ventilation and bagged without improvement. Placed patient back on mechanical ventilation and provide recruitment maneuvers and increased PEEP to 12 which resulted in improvement of sats to 88% to 92%. Ordered Flolan. Discontinued isuprel and initiated epinephrine. R radial art line would not draw blood . Performed u/s guided femoral artery stick to confirm hypoxemia on ABG given poor wave form on pulse ox and PaO2 was 58. Placed new L radial art line and this resulted in ~ 30 point increase in SBP relative to prior line but patient ultimately on vasopressin, levophed 30 micrograms per minute, Greyson-Synephrine 300 micrograms per minute, epinephrine 12 mcg/min and unable to maintain target pressure (SBP in 150s). Given calcium chloride. patient with shaking movements all extremities, pupils 2mm and sluggish, no eye deviation. Rigors seemed most likely but unable to emergently rule out seizures so loaded with fosphenytoin to avoid secondary injury from seizure activity. WBC increasing and concern for HCAP so pancultured and placed on cefepime, vancomycin, azithromycin. Hydrocortisone 100 mg IV every 8 hours initiated due to concern for septic shock in a patient who has been refractory to all other above measures. Patient is to hemodynamically unstable and hypoxic for transport for neurologic imaging. Urine output has declined to 180-200 ML's per hour. Back off maintenance IV fluids to 200 ML's per hour. Bedside echo demonstrates decreased LV function with normal RV contractility and collapsible IVC suggesting ongoing maintenance fluid administration is appropriate. 10/15 additional visit: continued to deteriorate throughout the day. Seen multiple times. hypoxic on 100% fio2, flolan. required nimbex drip to maintain. repeat bedside critical care ultrasound still demonstrates severe LV dysfunction , decompressed RV, IVC more dilated than previous echo overnight, however still with respiratory variation. femoral arterial line placed with better waveform and higher pressure (likely SVR too high to allow accurate measurement of radial pressure). Pulse contour analysis without stroke volume variation, CI 3.6. SV 52mL. trialed additional albumin without improvement in hemodynamics. uop slower than before, but still significant salt wasting in the urine- sodium dropped to 125 from 132 despite already on 3% nacl infusion and aggressive sodium replacements. forced to give 23% nacl and salt tabs. declining clinically despite maximal therapy. 10/16: continues to be maximally critically ill. LV dysfunction persists. starting to get volume overloaded, but given concern for ongoing cerebral vasospasm, unable to actively diurese patient. sodium wasting persists, but uop downtrending slightly. very hypokalemic today, likely due to steroids. remains intubated, sedated, paralyzed, on flolan. CXR today appears worse with worsening airspace disease. Lactate remains slightly elevated, confirming persistent shock. 10/17: Lung infiltrates dense bilaterally, reflected in shunting and problems with oxygenation. Developed vasospasm on TCDs and required angiogram and intra- arterial verapamil again today. 10/18: SBP 160 - 170 range. FiO2 0.55. BNP > 5000. Not tolerating attempts at maintaining higher BP due to worsening heart failure. Several episodes of vasospasm. Watch daily TCDs closely. Sputum no growth. 10/19: Tmax 99.8. Currently 99. Remains on 4 vasopressors and epoprostenol 10/20: Yesterday. Returned IR for intra-arterial calcium channel jose infusion for vasospasm. Transcranial Dopplers today Still pending. Remains on significant vasopressor support. 10/21: Good response to diuresis, check BNP. TCDs pending. Heart failure remains a major problem. 10/22: CVP 21 - 22, finger tips blue, digits pale white despite high dose milrinone dilation. Greyson and vaso much reduced. Will try diltiazem gtt for digital ischemia. Urine remains > 200/hr and proximal limbs are well perfused. This digital ischemia appears to be a local phenomenon ala Raynaud's. New subcutaneous emphysema right anterior chest wall. 10/23: Old CVL removed. Fingertips remain marginal, some necrotic despite diltiazem and milrinone treatment for digital ischemia. Cardiac output > 7 liters/min and urine copious, confirming good perfusion pressure and flow. This continues to be a local phenomenon of the digits ala Raynaud's. We are trying to wean vasopressors off but are required to maintaining a cerebral perfusion pressure suitable for the treatment of aneurysmal subarachnoid bleed. Frankly, the importance of brain function eclipses fingertips. 10/24: Afebrile. Well perfused except for index finger left hand, few tips fingers right. Arms and hands warmer with resolving circumferential edema. Diltiazem and milrinone gtt continue. Greyson to 10 mics/min. 10/25: Digits are warm and well perfused except left index and right 4th fingertips; demarcated and not viable. Dry. Diltiazem and milrinone infusions continue to help reverse digital ischemia. 10/26: Forced diuresis continues and BP remains nicely elevated. Hands and digits warm aside from left index and right 4th fingertips which have demarcated. 10/27: Good response to diuretics. Perfusion pressure and documented flow excellent. Continue to wean vent. 10/28: Start SBTs. Fluid balance back toward normal. 10/29: Tolerating SBTs. Lowering sedation. Edema resolving. 10/30: Tolerating tube feeds, will taper off TPN and remove central line. Continue diuretics. 10/31: net -3L over 24h. mental status at baseline. tolerating CPAP, but does not have the mental status to protect airway. will likely need trach/peg. placement will be a problem due to lack of funding. 11/01: no changes or improvements. discussed with yesterday and she "does not want any more setbacks" and would prefer trach versus trial of extubation. I agree with her assessment. plan for trach today. placement is still a significant problem. net -2L/24h. 11/02: wbc uptrending, febrile. antonio cultured, started empiric abx today. failed SBT overnight and placed back on rate. Subjective 11/03: Tolerating CPAP today, following commands. Low-grade fever cultures pending. WBC count normal today 11/04: Remains on TPs since yesterday. Neuro exam remains stable. Follows commands weakly. Na 152 11/05: Remains off vent for 48 hours now. Sitting up in stretcher chair today. Na improved to 149. remains weak but improving Objective Vital Signs Date Time Temp Pulse Resp B/P (MAP) Pulse Ox O2 Delivery O2 Flow Rate FiO2 11/05/16 08:14 100 T-piece 28 11/05/16 06:00 86 11/05/16 04:00 98.8 31 120/78 (92) 11/04/16 09:00 6.00 Intake and Output 11/05/16 11/05/16 11/06/16 08:00 16:00 00:00 Intake Total 1788 ml Output Total 1675 ml Balance 113 ml Result Diagram: 11/05/16 0507 11/05/16 0507 Other Results Microbiology Date/Time Source Procedure Growth Status 11/02/16 18:15 Sputum Endotracheal Gram Stain - Final Complete 11/02/16 18:15 Sputum Endotracheal Sputum Culture - Final HEAVY GROWTH NORMAL RESPIRATORY YOAN Complete Imaging Last Impressions Chest X-Ray 10/20/16 0000 Signed Impressions: Service Date/Time: October 03:47 - CONCLUSION: 1. Stable tubes and lines. 2. Stable bilateral lower lung zone airspace disease. 3. Stable small right pleural effusion. 4. No significant interval change. Kev Vergara MD Transcranial Doppler Study Complete 10/19/16 0600 Signed Impressions: Service Date/Time: Wednesday, October 19, 2016 08:02 - CONCLUSION: Suspect developing right MCA vasospasm Yosvany Polk MD Liver Ultrasound 10/19/16 0000 Signed Impressions: Service Date/Time: Wednesday, October 19, 2016 11:20 - CONCLUSION: 1. Sludge filled gallbladder with thickened wall. 2. Moderate size bilateral pleural effusions and mild upper abdominal ascites. Santos Vazquez MD Head CT 10/17/16 0000 Signed Impressions: Service Date/Time: Monday, October 17, 2016 15:06 - CONCLUSION: Ventricles are slightly larger without ventriculostomy. Edema in the left hemisphere the brain herniating through the operative site. Remington Woodward MD FACR Cerebral Arteriogram 10/17/16 0000 Signed Impressions: Service Date/Time: Monday, October 17, 2016 00:00 - CONCLUSION: 1. Uncompensated spasmolysis of the left middle cerebral artery Harvey Morejon MD Infusion Non-thrombolysis 10/14/16 1103 Signed Impressions: Service Date/Time: Friday, October 14, 2016 10:21 - CONCLUSION: 1. Uncomplicated infusion for spasmolysis Harvey Morejon MD Neck CTA 10/07/16 0000 Signed Impressions: Service Date/Time: Friday, October 07, 2016 15:03 - CONCLUSION: 1. Mild carotid bulb atherosclerotic calcification bilaterally. However, no significant stenosis is present in either internal carotid artery. 2. Paranasal sinus mucoperiosteal thickening. 3. Please refer to brain CTA report for description of the intracranial findings. Yosvany Ramirez MD Head CTA 10/07/16 0000 Signed Impressions: Service Date/Time: Friday, October 07, 2016 15:03 - CONCLUSION: 1. 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 2. Large left subdural hematoma measuring 1.3 cm in depth with a significant, 1.6 cm left to right subfalcine shift. Joni Shelton MD Objective Remarks GENERAL: 56-year-old male, trached. Sitting up in stretcher chair today HEAD: Status post left craniectomy. Left flap sunken, Incision healing well EYES: About 3 mm bilaterally and reactive NECK: trachea midline. 8.0 shiley cuffed trach CARDIOVASCULAR: S1-S2 normal no murmurs RESPIRATORY: Diminished breath sounds bilateral lower lobes. GASTROINTESTINAL: Abdomen soft, non-tender, nondistended. MUSCULOSKELETAL: Ischemic changes to left index finger tip and right 4th fingertip, and majority of R toes NEURO EXAM: Opens eyes follows command, right UE weaker than left. Attempts to mouth words Procedures 10/13 Four-vessel cerebral angiography with verapamil treatment of vasospasm A/P Assessment and Plan Neuro/Psych Status post left frontotemporal parietal craniectomy 10/08 for evacuation subdural hematoma/duraplasty Left subdural hematoma - 1.3 cm with 1.6 shift left to right Subarachnoid hemorrhage Alvarado and Rodriguez 5, Carroll grade 4 - left P-comm status post 4 coiling 10/08 - Nimodipine 60 mg every 4 hours for vasospasm completed 21 days. Initiated . s/p TCD's daily - Levetiracetam 500 mg per tube twice a day with phenytoin 100mg per tube q8h. If fever persists and culture-negative consider changing phenytoin - 10/13 and 10/14 and 10/17) 10/19 left MCA territory vasospasm, status post successful verapamil treatment by IR with 20 mg verapamil - SBP goal now reduced to <140. - 10/17 CT brain - less hemisphere edema with herniation through left craniotomy site - Dr. Perry/neurosurgery. Plan Respiratory: Acute hypoxic Respiratory failure-ARDS- resolved Noncardiogenic/neurogenic pulmonary edema -- Nebs, HOB at 30 degrees. Remains on TP last 48 hours -- Albuterol/Atrovent every 6 hours with albuterol aerosols every 2 hours for Dyspnea -- continue TP 05/09 as tolerated. increase activity, up to stretcher chair daily -- s/p Trach Dr. Sullivan/Dr. Collazo 11/01 Cardiovascular: Severe shock - septic and cardiogenic- resolved. Severe LV dysfunction secondary to SAH - persistent. Elevated troponin- secondary to SAH, unlikely to be ACS. - resolved. Pulmonary hypertension Continue diuresis. Free water replacement with half normal saline for 24 hours completed 11/05 Na improved, free water through NG tube Echocardiogram 10/14/16 revealed EF 40-45%. Septal hypokinesis. Moderate MR. Severe pulmonary hypertension with pulmonary artery pressures estimated 61 mmHg Renal: Cerebral Salt Wasting/SIADH-resolved now hypernatremic Strict I/Os. See FEN below. Creatinine currently within normal limits FEN/GI: Severe hyponatremia-resolved now hypernatremic Hypokalemia Elevated transaminases Hyperammonemia - DCd sodium chloride 3gm po TID 11/04 - Half-normal saline for 24 hours completed; free water 250 mL 4 times a day - ICU electrolyte protocol. aggressively replace potassium losses. - Lansoprazole 30 mg by tube daily for GI prophylaxis - Docusate sodium 100 mg twice a day, senna liquid 8.6 mg twice a day and polyethylene glycol 3350 17 g twice a day for bowel regimen - Lactulose 30 cc QID. ammonia 46 on 10/31, repeat tomorrow - NPO per speech, Continue NGT feeding Heme/ID: Septic Shock- resolved. Possible HCAP New Fever, leukocytosis - Digital Ischemia with necrosis, conservative management - s/p Diltiazem and milrinone infusions - Digits have demarcated. cardizem PO (for digital ischemia, Raynaud's) Pertinent cultures 10/15 - blood cultures - 1 out of 4 anaerobic gram-negative cocci possibly Veillonella 10/15 - sputum - beta strep not A, strep species 10/19 cultures NG 10/21 02/16 bottles blood cultures coag negative staph. Culture 11/01. coag neg stah 03/19 bottles f/u 11/01 blood, sputum, urine cultures. Continue vancomycin, cefepime, flagyl. DCd Flagyl 11/04 C diff negative. Endocrine: Presumed Adrenal Insufficiency Discontinued fludrocortisone 10/18. Monitor sodium 6 hours. Sliding-scale insulin with NovoLog -Accu-Cheks every 4 hours to maintain euglycemia d/cd Levemir bid. Taper off cortisone -> done Prophylaxis: GI Prophylaxis - lansoprazole DVT Prophylaxis-- SCDs, heparin subcutaneous Lines: - 10/14 right SC TLC, removed 10/22 - 10/14 right radial art line, removed 10/14 - 10/15 left radial art line, removed 10/16 - 10/15 left femoral art line - 10/22 left groin triple lumen placed, d/c 10/30 - d/c ramires. Overall impression: Improved neurological status. Digital ischemia has improved. Milrinone improved CO but ischemia to two fingertips persists. BNP elevated today consistent with acute on chronic heart failure.. Urine output continues to confirm good renal perfusion. He will lose fingertips due to heart failure and local digital vasospasm. Aside from demarcated fingers he is warm and well perfused. The patient's digital ischemia developed when he had a cardiac output over 8.0 liters/min, CVP was over 20 mm Hg, and urine over 75 ml/hr for many days. BNP was elevated at 777. His hands and feet were warm but the fingers and toes became cold, white, nearly cadaveric. Neosynephrine was only vasopressor and it was at 30 units/min only. We stopped it immediately and started milrinone and cardizem iv infusions. Most fingers and toes responded well to the vascular dilators but a few digits demarcated and became necrotic. Anticoagulation was not an option in face of recent aneurysm rupture and gastritis. Patients with this degree of digital ischemia (severe Raynaud's) usually have an underlying illness such as malignancy, mixed connective tissue disorder, collagen vascular disease, rheumatoid disease, etc. This workup can progress after he has cleared exogenous steroids which were just stopped. He's in a pretty revved up inflammatory state now and the lab values will be altered by it. ready for placement, which has significant barriers. Level 2 Harvey Bar MD Nov 05, 2016 10:42
[2016-11-05] MEDS: INSULIN ASPART SUPPLEMENTAL SCALE SQ SCH ×2 (12:00)
[2016-11-05] MEDS: SODIUM CHLOR 0.45% 1000 ML INJ 1,000 ML IV SCH (13:02)
[2016-11-05] MEDS: VANCOMYCIN INJ 1,250 MG in SODIUM CHLOR 0.9% 250 ML INJ 250 ML IV SCH (17:27)
[2016-11-05] MEDS: MELATONIN 5 MG TAB PO SCH (20:14)
[2016-11-05] MEDS: oxyCODONE HCL ORAL CONC 20 MG/ML SYRINGE PO PRN (20:14)
[2016-11-06] VITALS (14 sets, daily range): BP systolic 94–123; BP diastolic 60–79; PULSE 8–122; RESP 4–32; TEMP 98.8–102.7; O2SAT 100
[2016-11-06] MEDS: CEFEPIME INJ 2,000 MG in SODIUM CHLORIDE 0.9% INJ 100 ML IV SCH ×2 (00:31→08:42)
[2016-11-06] MEDS: DILTIAZEM HCL 90 MG TAB PO SCH ×4 (00:32→17:00)
[2016-11-06] MEDS: CHLORHEXIDINE GLUCONATE 2 % 1 PACK (2 CLOTHS) TOP SCH (02:40)
[2016-11-06 04:54] LABS: MEAN CELL VOLUME 97.3 FL (80.0-100.0); MEAN CORPUSCULAR HEMOGLOBIN 32.3 PG (27.0-34.0); MEAN CORPUSCULAR HGB CONC 33.2 % (32.0-36.0); PLATELET COUNT 173 TH/MM3 (150-450); RED BLOOD COUNT 2.78 MIL/MM3 (4.50-5.90); RED CELL DISTRIBUTION WIDTH 14.3 % (11.6-17.2); REVIEW FLAG FINAL; WHITE BLOOD COUNT 5.9 TH/MM3 (4.0-11.0)
[2016-11-06 05:19] LABS: BICARBONATE 28.9 MEQ/L (21.0-32.0); POTASSIUM 3.4 MEQ/L (3.5-5.1)
[2016-11-06] MEDS: HEPARIN SODIUM - SQ 10,000 UNITS/ML VIAL SQ SCH ×3 (06:34→20:47)
[2016-11-06] MEDS: VANCOMYCIN INJ 1,250 MG in SODIUM CHLOR 0.9% 250 ML INJ 250 ML IV SCH (06:34)
[2016-11-06] MEDS: PHENYTOIN SUSP 100 MG/4 ML CUP PO SCH (06:34)
[2016-11-06] MEDS: CHLORHEXIDINE 0.12% (ORAL KIT) 15 ML CUP MT SCH ×2 (08:00→20:43)
[2016-11-06] MEDS: levETIRAcetam 500 MG/5 ML UDC NG SCH ×2 (08:37→20:47)
[2016-11-06] MEDS: ACETAMINOPHEN 325 MG TAB PO PRN ×2 (08:37→16:50)
[2016-11-06] MEDS: LANSOPRAZOLE SOLUTAB 30 MG TAB NG SCH (08:38)
[2016-11-06] MEDS: BENEPROTEIN POWDER 1 PACK G-TUBE SCH ×3 (08:42→17:00)
[2016-11-06] MEDS: SODIUM CHLORIDE 0.9% FLUSH 10 ML FLUSH IV FLUSH SCH ×2 (08:42→20:43)
[2016-11-06] MEDS: POTASSIUM CHLOR 20 MEQ PREMIX 100 ML IV PRN (08:55)
[2016-11-06] MEDS: LACTULOSE SYRUP 20 GM/30 ML CUP OG-TUBE SCH ×4 (09:00→20:46)
[2016-11-06] MEDS: FUROSEMIDE 40 MG/4 ML VIAL IV PUSH SCH (09:00)
[2016-11-06] MEDS: INSULIN ASPART SUPPLEMENTAL SCALE SQ SCH ×2 (12:00)
--- NOTE | 2016-11-06 12:23 | HHI.CCPN ---
Subjective Remarks/Hospital Course 10/07: 56-year-old male presents with intracranial bleed. Patient was transferred from [facility] at [facility]. As per the paramedics and the nurse who assisted the patient said that patient earlier this morning was coming down the stairs when he started feeling some left-sided weakness and numbness. He called 911 and by the time EMS arrived they detected some deficit and called a stroke alert. Patient was taken to [facility]. When patient arrived his mental status started to decline and he was intubated emergently in the ER. A CAT scan of the head showed subarachnoid and subdural bleed. He was taking emergently to an angio suite for coiling of the aneurysm and later on to OR for subdural hematoma evacuation. 10/08: Remains sedated, orally intubated on mechanical ventilation. Arouses off sedation and following commands with both upper extremities earlier. Ventriculostomy in place. ICP 7, CPP mid 80s. 10/09: Remains sedated, orally intubated on mechanical ventilation. Arouses off sedation and follows commands with both upper extremities. Ventriculostomy in place. 10/10: Remains sedated, orally intubated on mechanical ventilation. Arouses off sedation and follows commands and both upper extremities. Ventriculostomy in place. ICP 5. Failed C Pap trial yesterday. 10/11: Extubated on 10/10, tolerating well. Awake and alert. Appears confused, moving all 4 extremities. Ventriculostomy discontinued today by neurosurgery 10/13: Patient has developed severe vasospasm at the left MCA territory on TCD's that was treated with IV route verapamil 10/14: patient extubated overnight. was originally following commands and neuro intact. TCDs this morning with increase LIs over yesterday, particularly Left MCA territory. On my evaluation early this morning, patient was aphasic, not moving the right side of his body, not following commands. SBP 140s at that time. net 2L negative/24h and uop almost 1L/hr at the time. I immediately bolused with 2L NS iv, placed arterial and central lines, started phenylephrine , increased SBP to goal 200 - 220 mmHg. called interventional neuroradiology and accompanied patient down personally to IR for IA verapamil again. I remained with the patient managing his hemodynamics down in IR and providing anxiolysis IV. I accompanied patient back up to [facility] where patient again was neuro intact and following commands. Sodium downtrending to 135 and urine studies and serum osms suggestive of urine sodium losses and high uop. added Florinef to mitigate sodium losses, and increased mivf to 500cc/hr to maintain euvolemia. later in the day patient decompensated requiring intubation for hyoxemia, cxr suggestive of pulmonary edema. 2d echo with evidence of EF 40%, septal hypokinesis, moderate MR. On levo, vaso, phenylephrine. difficult to get to goal SBP 200 mmHg, likely due to myocardial dysfunction. decreased goal to 180 - 200 mmHg to balance cardiac vs. neurologic goals. 10/15 Patient was discussed with Dr. Sullivan at shift change. Isuprel was initiated in effort to improve cardiac output as dobutamine not available and concerned with use of milrinone given long half life. Systolic blood pressure was relatively stable with perhaps some modest improvement from 170s to 180s for several hours after initiation. Notified when patient became abruptly hypotensive despite vasopressin, levophed 20 mcg/min, Greyson-Synephrine 300 mcg/m. He was also hypoxemic with sats in 80s despite PCV with PEEP 8 and FiO2 100%, respiratory rate in the 30s. He had decreased breath sounds bilaterally and was concerned for air trapping so removed from mechanical ventilation and bagged without improvement. Placed patient back on mechanical ventilation and provide recruitment maneuvers and increased PEEP to 12 which resulted in improvement of sats to 88% to 92%. Ordered Flolan. Discontinued isuprel and initiated epinephrine. R radial art line would not draw blood . Performed u/s guided femoral artery stick to confirm hypoxemia on ABG given poor wave form on pulse ox and PaO2 was 58. Placed new L radial art line and this resulted in ~ 30 point increase in SBP relative to prior line but patient ultimately on vasopressin, levophed 30 micrograms per minute, Greyson-Synephrine 300 micrograms per minute, epinephrine 12 mcg/min and unable to maintain target pressure (SBP in 150s). Given calcium chloride. patient with shaking movements all extremities, pupils 2mm and sluggish, no eye deviation. Rigors seemed most likely but unable to emergently rule out seizures so loaded with fosphenytoin to avoid secondary injury from seizure activity. WBC increasing and concern for HCAP so pancultured and placed on cefepime, vancomycin, azithromycin. Hydrocortisone 100 mg IV every 8 hours initiated due to concern for septic shock in a patient who has been refractory to all other above measures. Patient is to hemodynamically unstable and hypoxic for transport for neurologic imaging. Urine output has declined to 180-200 ML's per hour. Back off maintenance IV fluids to 200 ML's per hour. Bedside echo demonstrates decreased LV function with normal RV contractility and collapsible IVC suggesting ongoing maintenance fluid administration is appropriate. 10/15 additional visit: continued to deteriorate throughout the day. Seen multiple times. hypoxic on 100% fio2, flolan. required nimbex drip to maintain. repeat bedside critical care ultrasound still demonstrates severe LV dysfunction , decompressed RV, IVC more dilated than previous echo overnight, however still with respiratory variation. femoral arterial line placed with better waveform and higher pressure (likely SVR too high to allow accurate measurement of radial pressure). Pulse contour analysis without stroke volume variation, CI 3.6. SV 52mL. trialed additional albumin without improvement in hemodynamics. uop slower than before, but still significant salt wasting in the urine- sodium dropped to 125 from 132 despite already on 3% nacl infusion and aggressive sodium replacements. forced to give 23% nacl and salt tabs. declining clinically despite maximal therapy. 10/16: continues to be maximally critically ill. LV dysfunction persists. starting to get volume overloaded, but given concern for ongoing cerebral vasospasm, unable to actively diurese patient. sodium wasting persists, but uop downtrending slightly. very hypokalemic today, likely due to steroids. remains intubated, sedated, paralyzed, on flolan. CXR today appears worse with worsening airspace disease. Lactate remains slightly elevated, confirming persistent shock. 10/17: Lung infiltrates dense bilaterally, reflected in shunting and problems with oxygenation. Developed vasospasm on TCDs and required angiogram and intra- arterial verapamil again today. 10/18: SBP 160 - 170 range. FiO2 0.55. BNP > 5000. Not tolerating attempts at maintaining higher BP due to worsening heart failure. Several episodes of vasospasm. Watch daily TCDs closely. Sputum no growth. 10/19: Tmax 99.8. Currently 99. Remains on 4 vasopressors and epoprostenol 10/20: Yesterday. Returned IR for intra-arterial calcium channel jose infusion for vasospasm. Transcranial Dopplers today Still pending. Remains on significant vasopressor support. 10/21: Good response to diuresis, check BNP. TCDs pending. Heart failure remains a major problem. 10/22: CVP 21 - 22, finger tips blue, digits pale white despite high dose milrinone dilation. Greyson and vaso much reduced. Will try diltiazem gtt for digital ischemia. Urine remains > 200/hr and proximal limbs are well perfused. This digital ischemia appears to be a local phenomenon ala Raynaud's. New subcutaneous emphysema right anterior chest wall. 10/23: Old CVL removed. Fingertips remain marginal, some necrotic despite diltiazem and milrinone treatment for digital ischemia. Cardiac output > 7 liters/min and urine copious, confirming good perfusion pressure and flow. This continues to be a local phenomenon of the digits ala Raynaud's. We are trying to wean vasopressors off but are required to maintaining a cerebral perfusion pressure suitable for the treatment of aneurysmal subarachnoid bleed. Frankly, the importance of brain function eclipses fingertips. 10/24: Afebrile. Well perfused except for index finger left hand, few tips fingers right. Arms and hands warmer with resolving circumferential edema. Diltiazem and milrinone gtt continue. Greyson to 10 mics/min. 10/25: Digits are warm and well perfused except left index and right 4th fingertips; demarcated and not viable. Dry. Diltiazem and milrinone infusions continue to help reverse digital ischemia. 10/26: Forced diuresis continues and BP remains nicely elevated. Hands and digits warm aside from left index and right 4th fingertips which have demarcated. 10/27: Good response to diuretics. Perfusion pressure and documented flow excellent. Continue to wean vent. 10/28: Start SBTs. Fluid balance back toward normal. 10/29: Tolerating SBTs. Lowering sedation. Edema resolving. 10/30: Tolerating tube feeds, will taper off TPN and remove central line. Continue diuretics. 10/31: net -3L over 24h. mental status at baseline. tolerating CPAP, but does not have the mental status to protect airway. will likely need trach/peg. placement will be a problem due to lack of funding. 11/01: no changes or improvements. discussed with yesterday and she "does not want any more setbacks" and would prefer trach versus trial of extubation. I agree with her assessment. plan for trach today. placement is still a significant problem. net -2L/24h. 11/02: wbc uptrending, febrile. antonio cultured, started empiric abx today. failed SBT overnight and placed back on rate. 11/03: Tolerating CPAP today, following commands. Low-grade fever cultures pending. WBC count normal today 11/04: Remains on TPs since yesterday. Neuro exam remains stable. Follows commands weakly. Na 152 11/05: Remains off vent for 48 hours now. Sitting up in stretcher chair today. Na improved to 149. remains weak but improving SUBJECTIVE 11/06: Continues to tolerate TPs well. Neuro exam unchanged. Sodium 148 today. Continues to spike intermittent fever Tmax 102.7. Objective Vital Signs Date Time Temp Pulse Resp B/P (MAP) Pulse Ox O2 Delivery O2 Flow Rate FiO2 11/06/16 12:00 122 11/06/16 08:00 102.7 21 117/71 (86) 100 11/06/16 07:43 T-piece 28 11/05/16 22:21 6.00 Intake and Output 11/06/16 11/06/16 11/07/16 08:00 16:00 00:00 Intake Total 900 ml Output Total 1300 ml Balance -400 ml Result Diagram: 11/06/16 0417 11/06/16 0417 Imaging Last Impressions Chest X-Ray 10/20/16 0000 Signed Impressions: Service Date/Time: October 03:47 - CONCLUSION: 1. Stable tubes and lines. 2. Stable bilateral lower lung zone airspace disease. 3. Stable small right pleural effusion. 4. No significant interval change. Kev Vergara MD Transcranial Doppler Study Complete 10/19/16 0600 Signed Impressions: Service Date/Time: Wednesday, October 19, 2016 08:02 - CONCLUSION: Suspect developing right MCA vasospasm Yosvany Polk MD Liver Ultrasound 10/19/16 0000 Signed Impressions: Service Date/Time: Wednesday, October 19, 2016 11:20 - CONCLUSION: 1. Sludge filled gallbladder with thickened wall. 2. Moderate size bilateral pleural effusions and mild upper abdominal ascites. Santos Vazquez MD Head CT 10/17/16 0000 Signed Impressions: Service Date/Time: Monday, October 17, 2016 15:06 - CONCLUSION: Ventricles are slightly larger without ventriculostomy. Edema in the left hemisphere the brain herniating through the operative site. Remington Woodward MD FACR Cerebral Arteriogram 10/17/16 0000 Signed Impressions: Service Date/Time: Monday, October 17, 2016 00:00 - CONCLUSION: 1. Uncompensated spasmolysis of the left middle cerebral artery Harvey Morejon MD Infusion Non-thrombolysis 10/14/16 1103 Signed Impressions: Service Date/Time: Friday, October 14, 2016 10:21 - CONCLUSION: 1. Uncomplicated infusion for spasmolysis Harvey Morejon MD Neck CTA 10/07/16 0000 Signed Impressions: Service Date/Time: Friday, October 07, 2016 15:03 - CONCLUSION: 1. Mild carotid bulb atherosclerotic calcification bilaterally. However, no significant stenosis is present in either internal carotid artery. 2. Paranasal sinus mucoperiosteal thickening. 3. Please refer to brain CTA report for description of the intracranial findings. Yosvany Ramirez MD Head CTA 10/07/16 0000 Signed Impressions: Service Date/Time: Friday, October 07, 2016 15:03 - CONCLUSION: 1. 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 2. Large left subdural hematoma measuring 1.3 cm in depth with a significant, 1.6 cm left to right subfalcine shift. Joni Shelton MD Objective Remarks GENERAL: 56-year-old male, trached. Lying in bed HEAD: Status post left craniectomy. Left flap sunken, Incision healing well EYES: About 3 mm bilaterally and reactive NECK: Trachea midline. 8.0 Shiley cuffed trach CARDIOVASCULAR: S1-S2 normal no murmurs RESPIRATORY: Diminished breath sounds bilateral lower lobes. GASTROINTESTINAL: Abdomen soft, non-tender, nondistended. MUSCULOSKELETAL: Ischemic changes to left index finger tip and right 4th fingertip, and majority of R toes NEURO EXAM: Opens eyes follows command, right UE weaker than left, follows commands x4. Attempts to mouth words Procedures 10/13 Four-vessel cerebral angiography with verapamil treatment of vasospasm A/P Assessment and Plan Neuro/Psych Status post left frontotemporal parietal craniectomy 10/08 for evacuation subdural hematoma/duraplasty Left subdural hematoma - 1.3 cm with 1.6 shift left to right Subarachnoid hemorrhage Alvarado and Rodriguez 5, Carroll grade 4 - left P-comm status post 4 coiling 10/08 - Nimodipine completed 21 days. Initiated 10/13. - Levetiracetam 500 mg per tube twice a day with phenytoin 100mg per tube q8h. Fever persisting- DC phenytoin, observe clinically, check EEG - 10/13 and 10/14 and 10/17) 10/19 left MCA territory vasospasm, status post successful verapamil treatment by IR with 20 mg verapamil - SBP goal now reduced to <140. - 10/17 CT brain - less hemisphere edema with herniation through left craniotomy site - Dr. Perry/neurosurgery. Plan to replace bone flap- not cleared until bacteremia fever subsides Respiratory: Acute hypoxic Respiratory failure-ARDS- resolved Noncardiogenic/neurogenic pulmonary edema -- Nebs, HOB at 30 degrees. Remains on TP last 72 hours -- Albuterol/Atrovent every 6 hours with albuterol aerosols every 2 hours for Dyspnea -- continue TP 05/09 as tolerated. Up to stretcher chair daily -- s/p Trach Dr. Sullivan/Dr. Collazo 11/01 Cardiovascular: Severe shock - septic and cardiogenic- resolved. Severe LV dysfunction secondary to SAH - persistent. Elevated troponin- secondary to SAH, unlikely to be ACS. - resolved. Pulmonary hypertension Continue diuresis. Free water replacement with half normal saline for 24 hours completed 11/05 Na improved, free water through NG tube Echocardiogram 10/14/16 revealed EF 40-45%. Septal hypokinesis. Moderate MR. Severe pulmonary hypertension with pulmonary artery pressures estimated 61 mmHg Repeat Echo to rule out veg- has underlying MR Renal: Cerebral Salt Wasting/SIADH-resolved now hypernatremic Strict I/Os. See FEN below. Creatinine currently within normal limits FEN/GI: Severe hyponatremia-resolved now hypernatremic Hypokalemia Elevated transaminases Hyperammonemia - DCd sodium chloride 3gm po TID 11/04 - Half-normal saline for 24 hours completed; continue free water 250 mL 4 times a day - ICU electrolyte protocol. aggressively replace potassium losses. - Lansoprazole 30 mg by tube daily for GI prophylaxis - Docusate sodium 100 mg twice a day, senna liquid 8.6 mg twice a day and polyethylene glycol 3350 17 g twice a day for bowel regimen - Lactulose 30 cc QID. ammonia 46 on 10/31, repeat tomorrow - NPO per speech, Continue NGT feeding Heme/ID: Septic Shock- resolved. Possible HCAP New Fever, leukocytosis, staph epi bacteremia - limited Echo to evaluate vegetation. DC Dilantin. Consult ID, need clearance for bone flap replacement also - Digital Ischemia with necrosis, conservative management - s/p Diltiazem and milrinone infusions - Digits have demarcated. cardizem PO (for digital ischemia, Raynaud's) Pertinent cultures 10/15 - blood cultures - 1 out of 4 anaerobic gram-negative cocci possibly Veillonella 10/15 - sputum - beta strep not A, strep species 10/19 cultures NG 10/21 02/16 bottles blood cultures coag negative staph. Culture 11/01. coag neg stah 03/19 bottles f/u 11/01 blood, sputum, urine cultures. Continue vancomycin, cefepime, flagyl. DCd Flagyl 11/04 C diff negative. Consult infectious diseases Endocrine: Presumed Adrenal Insufficiency Discontinued fludrocortisone 10/18. Monitor sodium 6 hours. Sliding-scale insulin with NovoLog -Accu-Cheks every 4 hours to maintain euglycemia d/cd Levemir bid. Taper off cortisone -> done Prophylaxis: GI Prophylaxis - lansoprazole DVT Prophylaxis-- SCDs, heparin subcutaneous Lines: - 10/14 right SC TLC, removed 10/22 - 10/14 right radial art line, removed 10/14 - 10/15 left radial art line, removed 10/16 - 10/15 left femoral art line - 10/22 left groin triple lumen placed, d/c 10/30 - d/c ramires. Overall impression: Improved neurological status. Digital ischemia has improved. Milrinone improved CO but ischemia to two fingertips persists. Urine output continues to confirm good renal perfusion. He will lose fingertips due to heart failure and local digital vasospasm. Aside from demarcated fingers he is warm and well perfused. The patient's digital ischemia developed when he had a cardiac output over 8.0 liters/min, CVP was over 20 mm Hg, and urine over 75 ml/hr for many days. BNP was elevated at 777. His hands and feet were warm but the fingers and toes became cold, white, nearly cadaveric. Neosynephrine was only vasopressor and it was at 30 units/min only. We stopped it immediately and started milrinone and cardizem iv infusions. Most fingers and toes responded well to the vascular dilators but a few digits demarcated and became necrotic. Anticoagulation was not an option in face of recent aneurysm rupture and gastritis. Patients with this degree of digital ischemia (severe Raynaud's) usually have an underlying illness such as malignancy, mixed connective tissue disorder, collagen vascular disease, rheumatoid disease, etc. This workup can progress after he has cleared exogenous steroids which were just stopped. He's in a pretty revved up inflammatory state now and the lab values will be altered by it. Level 2 Harvey Bar MD Nov 06, 2016 12:23
--- NOTE | 2016-11-06 15:05 | PD.CONS ---
History of Present Illness Service Infectious disease Consult Requested By Dr James Bar Reason for Consult Evaluate patient with persistent fevers, has staph epi bacteremia Primary Care Physician No Primary Care Physician Diagnoses: History of Present Illness Patient seen and examined. Records reviewed. Patient is a 56-year-old male, initially admitted at [facility] after he developed acute onset of left-sided weakness and numbness. In [facility] emergency room his mental status deteriorated, and he required intubation. CT of the head showed subarachnoid bleed. He was transferred to [facility] for neurosurgical evaluation and treatment. Patient underwent angiogram and coiling of his aneurysm. He also underwent emergency surgery and had left frontal temporal parietal decompressive craniectomy, duraplasty, and evacuation of a subdural hematoma. He had a ezio hole and the ventriculostomy placement. His hospitalization was complicated by significant vasospasm of his cerebral arteries, and he had multiple angiogram and treatment of the vasospasm. He also had problem with significant LV dysfunction in both volume overload. His had hyponatremia that has been treated and corrected. He initially started having fevers and some clinical deterioration as far as infection around the first week of October. He had a sputum culture that had pneumococcus, beta- hemolytic strep and Haemophilus. He had one out of 2 blood culture that had anaerobic gram-negative cocci. He was on antibiotics up until October 23. Patient also required significant amount of pressors to maintain an adequate blood pressure to ensure cerebral perfusion. 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 Patient eventually underwent tracheostomy for his continued respiratory requirement, and had this procedure done November 01. Patient currently has been doing quite well and not requiring ventilatory support, and on T piece. Starting November 02 he started having fevers again as well as increased WBC. Repeat cultures at that time grew 2 blood cultures that had coag-negative staph. His central lines have been removed. Patient also has had liquid stool, but C. difficile is negative. Urinalysis done was unremarkable. Patient was started back on antibiotics on November 02 and has been on cefepime and IV vancomycin. He continues to have fevers. His WBC has been down to normal. His last chest x- ray yesterday showing stable infiltrates. He has no central line. He has a Maldonado catheter in place. He has an NG tube and gets tube feedings. Infectious disease consultation has been requested to evaluate the patient for persistent fevers. Review of Systems Constitutional: COMPLAINS OF: Fever Eyes: DENIES: Eye pain Ears, nose, mouth, throat: DENIES: Oral lesions, Throat pain, Sinus Pain Respiratory: COMPLAINS OF: Cough, Shortness of breath Cardiovascular: COMPLAINS OF: Lower Extremity Edema, DENIES: Chest pain, Palpitations Gastrointestinal: COMPLAINS OF: Diarrhea, DENIES: Abdominal pain, Nausea, Vomiting Musculoskeletal: COMPLAINS OF: Joint Swelling Integumentary: DENIES: Pruritus Neurologic: COMPLAINS OF: Localized weakness Psychiatric: COMPLAINS OF: Hallucinations Past Family Social History Allergies: Coded Allergies: No Known Allergies (Unverified , 05/06/16) Past Medical History Hypertension Past Surgical History Status post trach Status post craniectomy for evacuation of subdural hematoma Reported Medications Reported Meds & Active Scripts Active Naprosyn (Naproxen) 500 Mg Tab 500 Mg PO BID PRN Active Ordered Medications Tylenol Albuterol Calcium gluconate Cefepime Cardizem Lasix Haldol Heparin Dilaudid Insulin Lactulose Keppra Magnesium oxide Magnesium Melatonin Zofran Oxycodone Potassium IV vancomycin Family History Not known Social History Smokes one pack per day of cigarettes 2 beers per night No illicit drugs reported Physical Exam Vital Signs Vital Signs Date Time Temp Pulse Resp B/P (MAP) Pulse Ox O2 Delivery O2 Flow Rate FiO2 11/06/16 14:00 101 11/06/16 12:00 122 11/06/16 12:00 100.2 106 24 123/73 (90) 100 11/06/16 10:00 120 11/06/16 08:00 111 11/06/16 08:00 102.7 111 21 117/71 (86) 100 11/06/16 07:43 100 T-piece 28 11/06/16 06:00 109 11/06/16 04:00 97 11/06/16 04:00 98.8 95 26 106/67 (80) 100 11/06/16 02:00 93 11/06/16 00:00 99.2 89 22 94/60 (71) 100 11/06/16 00:00 85 11/05/16 22:21 100 T-piece 6.00 28 11/05/16 22:00 85 11/05/16 21:14 16 11/05/16 20:00 99.2 87 22 101/75 (84) 100 11/05/16 20:00 87 11/05/16 18:00 88 11/05/16 16:00 98.0 87 23 120/75 (90) 100 11/05/16 16:00 90 Physical Exam GENERAL: Patient is a well-nourished, well-developed CM, awake and alert, has a very congested moist cough, mild dyspneic at rest, on T-piece SKIN: Warm and dry. Has erythemantous maculopapular rash in trunk, inner UE HEAD: Incision healing with several areas that have eschar, no redness, craniectomy convex EYES: [place] conjunctiva. No petechia or hemorrhage. Pupils equal, round and reactive to light. Extraocular movements full and intact. No scleral icterus. No injection or drainage. EARS, NOSE AND THROAT: Nose without bleeding or purulent nasal discharge. NGT in place. No sinus tenderness. Slightly dry oral mucosa NECK: Trachea midline. Supple and not tender, no meningeal signs. Trach site ok CARDIOVASCULAR: Regular rate and rhythm. No murmurs, rubs or gallops heard RESPIRATORY: Equal breath sounds shereen. Diffuse rhonchi ABDOMEN: Soft, non-tender, nondistended. Bowel sounds present and normoactive. No guarding. No rebound. No organomegaly. EXTREMITIES: No clubbing, has mild pedal edema. Has dry gangrene LIF and R ring finger. All his toes have dry gangrene. No calf tenderness. Well perfused and warm. NEUROLOGICAL: Awake and alert. Mild facial asymmetry. Weak in all extremities PSYCHIATRIC: Normal affect, calm and cooperative. LINE: PIV with no evidence of infection : Maldonado in place, urine looks ok Laboratory Laboratory Tests Test 11/06/16 04:17 White Blood Count 5.9 Red Blood Count 2.78 Hemoglobin 9.0 Hematocrit 27.0 Mean Corpuscular Volume 97.3 Mean Corpuscular Hemoglobin 32.3 Mean Corpuscular Hemoglobin Concent 33.2 Red Cell Distribution Width 14.3 Platelet Count 173 Mean Platelet Volume 10.2 Blood Urea Nitrogen 21 Creatinine 0.55 Random Glucose 111 Calcium Level 8.1 Sodium Level 148 Potassium Level 3.4 Chloride Level 113 Carbon Dioxide Level 28.9 Anion Gap 6 Estimat Glomerular Filtration Rate 155 Date/Time Source Procedure Growth Status 11/02/16 21:30 Blood Peripheral Aerobic Blood Culture - Final Staph Sp Coagulase Negative Resulted 11/02/16 21:30 Blood Peripheral Anaerobic Blood Culture - Preliminary NO GROWTH IN 4 DAYS Resulted 11/06/16 13:00 Sputum Endotracheal Gram Stain Pending Received 11/06/16 13:00 Sputum Endotracheal Sputum Culture Pending Received 11/06/16 13:00 Urine Random Urine Urine Culture Pending Received Result Diagram: 11/06/16 0417 11/06/167 Imaging RADIOLOGY STUDIES/FILMS REVIEWED Chest X-Ray 11/05/16599 Signed Impressions: Service Date/Time: Saturday, November 05, 2016 04:39 - CONCLUSION: Persistent non-consolidative infiltrates in the medial lower lungs. Santos Vazquez MD Abdomen X-Ray 10/21/16599 Signed Impressions: Service Date/Time: Friday, October 21, 2016 03:50 - CONCLUSION: 1. NGT in the stomach. 2. General paucity of small bowel gas. This finding is nonspecific and occasionally may reflect fluid-filled loops of bowel. Otherwise, no dilated bowel loops to suggest significant ileus or obstruction. Kev Vergara MD Transcranial Doppler Study Complete 10/20/16 06 Signed Impressions: Service Date/Time: October 07:54 - CONCLUSION: Slight interval elevation of flow velocity measurements and ratio on the left Yosvany Polk MD Liver Ultrasound 10/19/16 0000 Signed Impressions: Service Date/Time: Wednesday, October 19, 2016 11:20 - CONCLUSION: 1. Sludge filled gallbladder with thickened wall. 2. Moderate size bilateral pleural effusions and mild upper abdominal ascites. Santos Vazquez MD Cerebral Arteriogram 10/19/16 0000 Signed Impressions: Service Date/Time: Wednesday, October 19, 2016 12:47 - CONCLUSION: Uncomplicated cerebral arteriography with spasmolytic therapy as described in detail above. Yosvany Polk MD Head CT 10/17/16 0000 Signed Impressions: Service Date/Time: Monday, October 17, 2016 15:06 - CONCLUSION: Ventricles are slightly larger without ventriculostomy. Edema in the left hemisphere the brain herniating through the operative site. Remington Woodward MD FACR Infusion Non-thrombolysis 10/14/16 1103 Signed Impressions: Service Date/Time: Friday, October 14, 2016 10:21 - CONCLUSION: 1. Uncomplicated infusion for spasmolysis Harvey Morejon MD Neck CTA 10/07/16 0000 Signed Impressions: Service Date/Time: Friday, October 07, 2016 15:03 - CONCLUSION: 1. Mild carotid bulb atherosclerotic calcification bilaterally. However, no significant stenosis is present in either internal carotid artery. 2. Paranasal sinus mucoperiosteal thickening. 3. Please refer to brain CTA report for description of the intracranial findings. Yosvany Ramirez MD Head CTA 10/07/16 0000 Signed Impressions: Service Date/Time: Friday, October 07, 2016 15:03 - CONCLUSION: 1. 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 2. Large left subdural hematoma measuring 1.3 cm in depth with a significant, 1.6 cm left to right subfalcine shift. Joni Shelton MD Assessment and Plan Assessment and Plan IMPRESSION Persistent fevers since 11/02, WBC has improved - CXR stable, new HCAP - UA 11/02 ok, has condom cath - no lines - has rash, ?fever due to Abx (Cefepime) 2 BC with 2 different Coag Neg Staph, ?real, no lines now - last line removed 10/30 - ?contaminant S/P coiling aneurysm S/P craniectomy, decompression, evacuation of SDH Respiratory failure, S/P trach, on T-piece Rash likely drug eruption, ?Abx - B-lactam LV dysfunction RECOMMENDATION Repeat 2 BC Stop Vancomycin Change Cefepime to Azactam for GNR coverage Add Diflucan Lactinex Follow C/S and adjust Abx Monitor temps Monitor progress Monitor rash I will follow along with you Thank you for this consultation Mitra Smith MD Nov 06, 2016 15:05
--- NOTE | 2016-11-06 15:47 | ECHRPT ---
Indication: Vegetation CONCLUSIONS Limited echo: LVEF 60-65% Trivial mitral and tricuspid regurgitation No vegetations noted. BP: 117 / 71 HR: 86 Rhythm: Technical Quality: Juan Jackson MD (Electronically Signed) Final Date:06 November 2016 15:46
[2016-11-06] MEDS: AZTREONAM INJ 1,000 MG in SODIUM CHLORIDE 0.9% INJ 100 ML IV SCH (16:17)
[2016-11-06] MEDS: FLUCONAZOLE 100 MG TAB PO SCH (16:17)
[2016-11-06 16:55] LABS: BACTERIA, URINE RARE /hpf; BLOOD, URINE SMALL (NEG); GLUCOSE,URINE NEG (NEG); KETONE, URINE NEG (NEG); MUCUS URINE FEW /lpf (OCC); NITRITE,URINE NEG (NEG); URINE COLOR LIGHT-YELLOW (YELLW/STRAW)
[2016-11-06] MEDS: LACTOBACILLUS ACIDOPHILUS TAB PO SCH (17:00)
[2016-11-06] MEDS: ARTIFICIAL TEARS OPTH SOLN 15 ML BTL EACH EYE SCH (20:42)
[2016-11-06] MEDS: MELATONIN 5 MG TAB PO SCH (20:46)
--- NOTE | 2016-11-06 21:22 | MG ---
cc: JACKELINE YING M.D. Lab No: Date: 11/06/2016 Age: Sex: M Race: REQUESTING PHYSICIAN Dr. Bar INTRODUCTION An EEG was obtained on this 56-year-old patient with history of tracheostomy and slightly large ventricles. The patient is described as awake and following commands. MEDICATIONS 1. Dilantin. 2. Keppra. 3. Prevacid. 4. Vancomycin. DESCRIPTION This EEG shows continuous left hemisphere higher amplitude and slower rhythms. There is rather irregular delta and theta activity on the left. There is probably some intermixed sharp discharges but there is no ictal abnormality. There are right hemisphere faster rhythms and there is never a dominance by alpha activity. Photic stimulation disclosed no change. INTERPRETATION Abnormal EEG because of continuous left hemisphere slowing with some associated sharp discharges but no ictal pattern. The findings suggest left hemisphere structural abnormality with occasional epileptiform features. MD SCOTT Esquivel/CUAUHTEMOC /9:02 PM /9:16 PM
[2016-11-07] VITALS (12 sets, daily range): BP systolic 116–136; BP diastolic 74–91; PULSE 22–103; RESP 22–28; TEMP 98.6–100.3; O2SAT 98–100
[2016-11-07] MEDS: DILTIAZEM HCL 90 MG TAB PO SCH ×5 (00:27→23:28)
[2016-11-07] MEDS: AZTREONAM INJ 1,000 MG in SODIUM CHLORIDE 0.9% INJ 100 ML IV SCH ×4 (00:27→23:28)
[2016-11-07] MEDS ORDERED: NOREPINEPHRINE 4 MG/4 ML AMP ONE (02:02)
[2016-11-07] MEDS: CHLORHEXIDINE GLUCONATE 2 % 1 PACK (2 CLOTHS) TOP SCH (03:57)
[2016-11-07 05:16] LABS: HEMATOCRIT 26.3 % (39.0-51.0); MEAN CELL VOLUME 96.4 FL (80.0-100.0); MEAN CORPUSCULAR HEMOGLOBIN 31.4 PG (27.0-34.0); MEAN CORPUSCULAR HGB CONC 32.6 % (32.0-36.0); PLATELET COUNT 174 TH/MM3 (150-450); RED BLOOD COUNT 2.73 MIL/MM3 (4.50-5.90); RED CELL DISTRIBUTION WIDTH 14.2 % (11.6-17.2); REVIEW FLAG FINAL; WHITE BLOOD COUNT 5.6 TH/MM3 (4.0-11.0)
[2016-11-07] MEDS: HEPARIN SODIUM - SQ 10,000 UNITS/ML VIAL SQ SCH ×3 (05:33→20:58)
[2016-11-07 05:37] LABS: POTASSIUM 3.5 MEQ/L (3.5-5.1)
[2016-11-07] MEDS ORDERED: PHARMACY ORDERED LAB ONE (05:45)
[2016-11-07] MEDS: CHLORHEXIDINE 0.12% (ORAL KIT) 15 ML CUP MT SCH ×2 (08:00→20:14)
[2016-11-07] MEDS: BENEPROTEIN POWDER 1 PACK G-TUBE SCH ×3 (09:00→18:00)
[2016-11-07] MEDS: ARTIFICIAL TEARS OPTH SOLN 15 ML BTL EACH EYE SCH ×3 (09:00→18:00)
[2016-11-07] MEDS: SODIUM CHLORIDE 0.9% FLUSH 10 ML FLUSH IV FLUSH SCH ×2 (09:00→20:14)
[2016-11-07] MEDS: FLUCONAZOLE 100 MG TAB PO SCH (09:34)
[2016-11-07] MEDS: LACTULOSE SYRUP 20 GM/30 ML CUP OG-TUBE SCH ×4 (09:34→20:14)
[2016-11-07] MEDS: LANSOPRAZOLE SOLUTAB 30 MG TAB NG SCH (09:34)
[2016-11-07] MEDS: FUROSEMIDE 40 MG/4 ML VIAL IV PUSH SCH (09:34)
[2016-11-07] MEDS: LACTOBACILLUS ACIDOPHILUS TAB PO SCH ×3 (09:34→18:18)
[2016-11-07] MEDS: levETIRAcetam 500 MG/5 ML UDC NG SCH ×2 (09:34→20:14)
--- NOTE | 2016-11-07 10:06 | HHI.NSPN ---
(Malinda Hines) Note Status Status: Progress Note (Malinda Hines) Interval History Interval History This is a 56-year-old male brought to the emergency room as an emergency transfer from another institution with history of intracranial bleed. He was transferred from [facility] and [facility]. Apparently the patient said that patient earlier this morning was coming down the stairs when he started feeling some left-sided weakness and numbness. He called 911 and by the time EMS arrived they detected severe neurological deficits and called a stroke alert. No seizure activity reported. No tongue biting. No incontinence of stool or urine. Patient was taken to [facility]. Apparently he was not able to move his right side . When patient arrived his mental status started to decline and he was intubated emergently in the ER for airway protection. A CT scan of the head showed extensive subarachnoid bleed. In addition he had a sizable subdural hematoma. He was brought emergently on the ventilator. He was on a propofol drip and well sedated. GCS was 3. He was on a Cardene drip and blood pressure was in the 120s. Neurosurgical consultation was requested 10/08. POD #1 Open eyes and follows commands 10/12. Doing very well. Neurologically stable. Patient is in restraints secondary to pulling out his Maldonado multiple times. 10/13. Much more lethargic, difficult to speak with new aphasia 10/14. Improved after angiography. Today he developed new onset of aphasia and right hemiparesis 10/17. Intubated and sedated. Lung infiltrates dense bilaterally, reflected in shunting and problems with oxygenation. 10/18: underwent endovascular verapamil infusion to left MCA vasospasm yesterday. TCD today pending. left flap pak today. Intubated and sedated. continues to be on multiple pressors. on 3% NS. 10/19: currently unstable for travel for repeat CT Head this am. no changes with neuro checks, remains intubated, sedated. pupils equal. continues on multiple pressors support 10/20: intubated and mildly sedated. remains on multiple pressors. pneumonia worsening. TCD this am reports slight increase in flow velocity to left, he underwent cerebral angiography yesterday with endovascular verapamil infusion right ICA. 10/21: intubated, sedated on fentanyl and versed. On Nimbex. 10/25: off Nimbex. Mildly opening eyes today. 10/26: opening eyes more today, ?focusing 10/27: intubated, minimal eye opening. not following commands. 10/28: appears more awake, following commands, focusing and tracked. shook head no when asked if doing ok. 10/31: remains intubated, tracking more today, not following with extremities 11/01: nursing reports intermittently follows commands to upper extremities. for tracheostomy today. 11/02: s/p tracheostomy, smiling today, following commands. 11/03: smiling and nodding appropriately. PT at bedside. 11/04: mouthing some words today, no acute events overnight 11/07: doing well, left craniectomy site well decompressed. febrile, ID consulted. (Malinda Hines) Labs, Micro, & Vital Signs Results Date Time Temp Pulse Resp B/P (MAP) Pulse Ox O2 Delivery O2 Flow Rate FiO2 11/07/16 08:00 95 11/07/16 08:00 100.3 95 27 132/74 (93) 98 11/07/16 06:00 91 11/07/16 04:00 99.0 95 22 116/76 (89) 99 11/07/16 04:00 95 11/07/16 02:00 99 11/07/16 00:00 89 11/07/16 00:00 99.3 89 22 120/83 (95) 100 11/06/16 22:00 96 11/06/16 20:58 100 T-piece 6.00 28 11/06/16 20:00 88 11/06/16 20:00 100.2 88 24 111/72 (85) 100 11/06/16 18:00 98 11/06/16 18:00 99.1 98 32 98/70 (79) 100 11/06/16 16:00 97 11/06/16 16:00 100.9 97 29 119/79 (92) 100 11/06/16 14:00 101 11/06/16 12:00 122 11/06/16 12:00 100.2 106 24 123/73 (90) 100 Constitutional Vital Signs Date Time Temp Pulse Resp B/P (MAP) Pulse Ox O2 Delivery O2 Flow Rate FiO2 11/07/16 08:00 95 11/07/16 08:00 100.3 95 27 132/74 (93) 98 11/07/16 06:00 91 11/07/16 04:00 99.0 95 22 116/76 (89) 99 11/07/16 04:00 95 11/07/16 02:00 99 11/07/16 00:00 89 11/07/16 00:00 99.3 89 22 120/83 (95) 100 11/06/16 22:00 96 11/06/16 20:58 100 T-piece 6.00 28 11/06/16 20:00 88 11/06/16 20:00 100.2 88 24 111/72 (85) 100 11/06/16 18:00 98 11/06/16 18:00 99.1 98 32 98/70 (79) 100 11/06/16 16:00 97 11/06/16 16:00 100.9 97 29 119/79 (92) 100 11/06/16 14:00 101 11/06/16 12:00 122 11/06/16 12:00 100.2 106 24 123/73 (90) 100 (Malinda Hines) Review of Systems ROS Limitations: Clinical Condition (Malinda Hines) Physical Exam Awake, eyes open, smiling, and mouthing. focusing and tracking. nodding appropriately to questions Neck: tracheostomy on supplemental oxygen CN: pupils 3-4 mm bilaterally Left flap is now well decompressed. Motor: minimal movement x 4 extremities, UE>LE Diffuse extremity edema-improving. area of necrosis to distal fingers and toes (Malinda Hines) Medications Current Medications Current Medications Medications (Trade) Dose Ordered Sig/Adali Route PRN Reason Start Time Stop Time Status Last Admin Dose Admin Chlorhexidine Gluconate (Peridex 0.12% Liq) 15 ml BID@08,20 MT 10/07/16 20:00 11/07/16 08:00 Ondansetron HCl (Zofran Inj) 4 mg Q6H PRN IV NAUSEA OR VOMITING 10/07/16 18:30 Calcium Gluconate (Calcium Gluconate Inj) 1 gm UNSCH PRN IV SEE LABEL COMMENTS 10/07/16 18:30 10/16/16 10:00 Potassium Chloride 100 ml @ 50 mls/hr UNSCH PRN IV POTASSIUM LESS THAN 4 10/07/16 18:30 11/06/16 08:55 Magnesium Sulfate 4 gm/Sodium Chloride 108 ml @ 108 mls/hr UNSCH PRN IV MAGNESIUM LESS THAN 2 10/07/16 18:30 Acetaminophen (Tylenol) 650 mg Q4H PRN PO TEMP >100.4 10/07/16 18:30 11/06/16 16:50 Dextrose (D50w (Vial) Inj) 50 ml UNSCH PRN IV PUSH HYPOGLYCEMIA - SEE COMMENTS 10/07/16 19:15 11/01/16 09:22 Glucagon (Glucagon Inj) 1 mg UNSCH PRN OTHER HYPOGLYCEMIA-SEE COMMENTS 10/07/16 19:15 Heparin Sodium (Porcine) (Heparin Inj) 5,000 units Q8HR SQ 10/14/16 22:00 11/07/16 05:33 Magnesium Oxide (Mag-Ox) 800 mg UNSCH PRN PO For Magnesium 1.2 - 1.6 mg/dL 10/16/16 09:15 Magnesium Sulfate 4 gm/Sodium Chloride 100 ml @ 50 mls/hr UNSCH PRN IV For Magnesium 0.9 - 1.1 mg/dL 10/16/16 09:15 Magnesium Sulfate 2 gm/Sodium Chloride 100 ml @ 50 mls/hr UNSCH PRN IV For Magnesium 1.2 - 1.6 mg/dL 10/16/16 09:15 Potassium Chloride 100 ml @ 50 mls/hr Q2H PRN IV For Potassium 2.8 - 3.2 mEq/L 10/16/16 09:15 11/04/16 13:37 Potassium Chloride 100 ml @ 50 mls/hr Q2H PRN IV For Potassium 3.3 - 3.5 mEq/L 10/16/16 09:15 Potassium Chloride 100 ml @ 50 mls/hr Q2H PRN IV For Potassium 2.8 - 3.2 mEq/L 10/16/16 09:15 10/27/16 13:26 Potassium Chloride 100 ml @ 25 mls/hr UNSCH PRN IV For Potassium 3.3 - 3.5 mEq/L 10/16/16 09:15 10/30/16 06:06 Potassium Phosphate (K-Phos) 2,000 mg Q4H PRN PO For Phosphorus < 2.5 mg/dL 10/16/16 09:15 Potassium Phosphate (K-Phos) 2,000 mg UNSCH PRN PO/TUBE SEE LABEL COMMENTS 10/16/16 09:15 Potassium Phosphate 30 mmol/ Sodium Chloride 260 ml @ 42 mls/hr UNSCH PRN IV SEE LABEL COMMENTS 10/16/16 09:15 10/24/16 20:39 Sodium Phosphate 30 mmol/Sodium Chloride 250 ml @ 42 mls/hr UNSCH PRN IV For Phosphorus < 2.5 mg/dL 10/16/16 09:15 10/22/16 06:46 Calcium Gluconate 1 gm/Sodium Chloride 110 ml @ 110 mls/hr UNSCH PRN IV For Protein Corrected Calcium 10/18/16 09:45 10/18/16 10:22 Lansoprazole (Prevacid Odt) 30 mg DAILY NG 10/20/16 09:00 11/07/16 09:34 Sodium Chloride (NS Flush) 2 ml UNSCH PRN IV FLUSH FLUSH AFTER USING IV ACCESS 10/19/16 09:45 Sodium Chloride (NS Flush) 2 ml BID IV FLUSH 10/19/16 21:00 11/07/16 09:00 Artificial Tears (Tears Naturale Opth Soln) 1 drop TID EACH EYE 10/19/16 13:00 11/07/16 09:00 Albuterol Sulfate (Albuterol Neb) 2.5 mg Q2HR NEB PRN INH SOB/WHEEZING 10/19/16 09:45 Miscellaneous Information 1 Q361D XX 10/19/16 09:45 Chlorhexidine Gluconate (Chlorhexidine 2% Cloth) Taper DAILY@04 TOP 10/20/16 04:00 10/16/17 03:59 10/23/16 04:20 Chlorhexidine Gluconate (Chlorhexidine 2% Cloth) 3 pack UNSCH PRN TOP HYGIENIC CARE 10/19/16 09:45 Furosemide (Lasix Inj) 40 mg DAILY IV PUSH 10/28/16 09:00 11/07/16 09:34 Protein (Beneprotein Powder) 1 pack TID G-TUBE 10/29/16 13:00 11/06/16 17:00 Levetriacetam (Keppra Liq) 500 mg Q12HR NG 10/31/16 21:00 11/07/16 09:34 Lactulose (Lactulose Liq) 30 ml QID OG-TUBE 11/01/16 09:00 11/07/16 09:34 Oxycodone HCl (Roxicodone Intensol Liq) 10 mg Q4H PRN PO pain 1-6 11/01/16 15:00 11/05/16 20:14 Hydromorphone HCl (Dilaudid Pf Inj) 0.5 mg Q4H PRN IV PUSH pain 7-10 or not taking po 11/01/16 15:00 11/02/16 10:49 Haloperidol Lactate (Haldol Inj) 5 mg Q4H PRN IV PUSH agitation 11/01/16 15:00 Melatonin (Melatonin) 5 mg HS PO 11/01/16 21:00 11/06/16 20:46 Diltiazem HCl (Cardizem) 90 mg Q6HR PO 11/02/16 12:00 11/07/16 05:32 Insulin Aspart (NovoLOG SUPPLEMENTAL SCALE) 1 Q12H SQ 11/03/16 12:00 11/04/16 00:42 Aztreonam 1000 mg/ Sodium Chloride 100 ml @ 200 mls/hr Q8H IV 11/06/16 16:00 11/07/16 09:33 Lactobacillus Acidophilus (Lactinex) 1 tab TID PO 11/06/16 18:00 11/07/16 09:34 Fluconazole (Diflucan) 100 mg DAILY PO 11/06/16 16:00 11/07/16 09:34 (Malinda Hines) Medical Decision Making MDM Remarks 56 y/o male with 1. Subarachnoid hemorrhage, status post coiling posterior communicating artery aneurysm. s/p left decompressive craniectomy Vasospasms, s/p endovascular verapamil infusions 10/13/16, 10/17/16, 10/19/16. Neurologically exam continues to improve. Left craniectomy site now well decompressed 2. Possible seizures. Remains on Keppra and Cerebyx 3. Respiratory failure, improving, s/p tracheostomy 4. Fevers - ?source, ID consulted (Malinda Hines) Plan Plan Remarks cont critical care cont therapy and rehab efforts neuro exam improving will schedule left cranioplasty tentatively Wed if cleared by ID nightly Hibiclens bath total of 3 doses prior to surgery discussed with over the phone (Malinda Hines) Attending Statement The exam, history, and the medical decision-making described in the above note were completed with the assistance of the mid-level provider. I reviewed and agree with the findings presented. I attest that I had a [id number] encounter with the patient on the same day, and personally performed and documented my assessment and findings in the medical record. (George Perry MD) Malinda Hines Nov 07, 2016 10:06 George Perry MD Nov 12, 2016 09:27
[2016-11-07] MEDS: INSULIN ASPART SUPPLEMENTAL SCALE SQ SCH ×2 (12:00)
--- NOTE | 2016-11-07 13:27 | HHI.IDPN ---
Subjective Subjective Remarks Patient is a 56-year-old male, initially admitted at [facility] after he developed acute onset of left-sided weakness and numbness. In [facility] emergency room his mental status deteriorated, and he required intubation. CT of the head showed subarachnoid bleed. He was transferred to [facility] for neurosurgical evaluation and treatment. Patient underwent angiogram and coiling of his aneurysm. He also underwent emergency surgery and had left frontal temporal parietal decompressive craniectomy, duraplasty, and evacuation of a subdural hematoma. He had a ezio hole and the ventriculostomy placement. His hospitalization was complicated by significant vasospasm of his cerebral arteries, and he had multiple angiogram and treatment of the vasospasm. He also had problem with significant LV dysfunction in both volume overload. His had hyponatremia that has been treated and corrected. He initially started having fevers and some clinical deterioration as far as infection around the first week of October. He had a sputum culture that had pneumococcus, beta- hemolytic strep and Haemophilus. He had one out of 2 blood culture that had anaerobic gram-negative cocci. He was on antibiotics up until October 23. Patient also required significant amount of pressors to maintain an adequate blood pressure to ensure cerebral perfusion. 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 Patient eventually underwent tracheostomy for his continued respiratory requirement, and had this procedure done November 01. Patient currently has been doing quite well and not requiring ventilatory support, and on T piece. Starting November 02 he started having fevers again as well as increased WBC. Repeat cultures at that time grew 2 blood cultures that had coag-negative staph. His central lines have been removed. Patient also has had liquid stool, but C. difficile is negative. Urinalysis done was unremarkable. Patient was started back on antibiotics on November 02 and has been on cefepime and IV vancomycin. He continues to have fevers. His WBC has been down to normal. His last chest x- ray yesterday showing stable infiltrates. He has no central line. He has a Maldonado catheter in place. He has an NG tube and gets tube feedings. Infectious disease consultation has been requested to evaluate the patient for persistent fevers. Notes reviewed Temps better On T-piece Has loose stool Dilantin D/C yesterday Vanco and Cefepime D/C yesterday BC negative Rest of C/S pending Antibiotics Azactam Diflucan Lines PIV Past Medical History Hypertension Past Surgical History Status post trach Status post craniectomy for evacuation of subdural hematoma Allergies: Coded Allergies: No Known Allergies (Unverified , 05/06/16) Objective . Vital Signs Date Time Temp Pulse Resp B/P (MAP) Pulse Ox O2 Delivery O2 Flow Rate FiO2 11/07/16 12:00 98.8 94 28 136/83 (100) 100 11/07/16 12:00 95 11/07/16 10:00 103 11/07/16 08:00 95 11/07/16 08:00 100.3 95 27 132/74 (93) 98 11/07/16 06:00 91 11/07/16 04:00 99.0 95 22 116/76 (89) 99 11/07/16 04:00 95 11/07/16 02:00 99 11/07/16 00:00 89 11/07/16 00:00 99.3 89 22 120/83 (95) 100 11/06/16 22:00 96 11/06/16 20:58 100 T-piece 6.00 28 11/06/16 20:00 88 11/06/16 20:00 100.2 88 24 111/72 (85) 100 11/06/16 18:00 98 11/06/16 18:00 99.1 98 32 98/70 (79) 100 11/06/16 16:00 97 11/06/16 16:00 100.9 97 29 119/79 (92) 100 11/06/16 14:00 101 . Laboratory Tests Test 11/06/16 04:17 11/07/16 04:25 White Blood Count 5.9 TH/MM3 5.6 TH/MM3 Red Blood Count 2.78 MIL/MM3 2.73 MIL/MM3 Hemoglobin 9.0 GM/DL 8.6 GM/DL Hematocrit 27.0 % 26.3 % Mean Corpuscular Volume 97.3 FL 96.4 FL Mean Corpuscular Hemoglobin 32.3 PG 31.4 PG Mean Corpuscular Hemoglobin Concent 33.2 % 32.6 % Red Cell Distribution Width 14.3 % 14.2 % Platelet Count 173 TH/MM3 174 TH/MM3 Mean Platelet Volume 10.2 FL 10.0 FL Laboratory Tests Test 11/06/16 04:11/07/16 04:25 Blood Urea Nitrogen 21 MG/DL 23 MG/DL Creatinine 0.55 MG/DL 0.43 MG/DL Random Glucose 111 MG/DL 102 MG/DL Calcium Level 8.1 MG/DL 8.1 MG/DL Sodium Level 148 MEQ/L 145 MEQ/L Potassium Level 3.4 MEQ/L 3.5 MEQ/L Chloride Level 113 MEQ/L 110 MEQ/L Carbon Dioxide Level 28.9 MEQ/L 27.0 MEQ/L Anion Gap 6 MEQ/L 8 MEQ/L Estimat Glomerular Filtration Rate 155 ML/MIN 206 ML/MIN Microbiology Date/Time Source Procedure Growth Status 11/06/16 20:48 Blood Peripheral Aerobic Blood Culture - Preliminary NO GROWTH IN 1 DAY Resulted 11/06/16 20:48 Blood Peripheral Anaerobic Blood Culture - Preliminary NO GROWTH IN 1 DAY Resulted 11/06/16 20:41 Blood Peripheral Aerobic Blood Culture - Preliminary NO GROWTH IN 1 DAY Resulted 11/06/16 20:41 Blood Peripheral Anaerobic Blood Culture - Preliminary NO GROWTH IN 1 DAY Resulted 11/06/16 13:00 Sputum Endotracheal Gram Stain - Final Resulted 11/06/16 13:00 Sputum Endotracheal Sputum Culture - Preliminary MODERATE GROWTH NORMAL RESPIRATORY FL... Resulted 11/06/16 13:00 Urine Random Urine Urine Culture - Preliminary NO GROWTH IN 24 HOURS. Resulted Imaging Chest X-Ray 11/05/16599 Signed Impressions: Service Date/Time: Saturday, November 05, 2016 04:39 - CONCLUSION: Persistent non-consolidative infiltrates in the medial lower lungs. Santos Vazquez MD Abdomen X-Ray 10/21/16599 Signed Impressions: Service Date/Time: Friday, October 21, 2016 03:50 - CONCLUSION: 1. NGT in the stomach. 2. General paucity of small bowel gas. This finding is nonspecific and occasionally may reflect fluid-filled loops of bowel. Otherwise, no dilated bowel loops to suggest significant ileus or obstruction. Kev Vergara MD Transcranial Doppler Study Complete 10/20/16 06 Signed Impressions: Service Date/Time: October 07:54 - CONCLUSION: Slight interval elevation of flow velocity measurements and ratio on the left Yosvany Polk MD Liver Ultrasound 10/19/16 0000 Signed Impressions: Service Date/Time: Wednesday, October 19, 2016 11:20 - CONCLUSION: 1. Sludge filled gallbladder with thickened wall. 2. Moderate size bilateral pleural effusions and mild upper abdominal ascites. Santos Vazquez MD Cerebral Arteriogram 10/19/16 0000 Signed Impressions: Service Date/Time: Wednesday, October 19, 2016 12:47 - CONCLUSION: Uncomplicated cerebral arteriography with spasmolytic therapy as described in detail above. Yosvany Polk MD Head CT 10/17/16 0000 Signed Impressions: Service Date/Time: Monday, October 17, 2016 15:06 - CONCLUSION: Ventricles are slightly larger without ventriculostomy. Edema in the left hemisphere the brain herniating through the operative site. Remington Woodward MD FACR Infusion Non-thrombolysis 10/14/16 1103 Signed Impressions: Service Date/Time: Friday, October 14, 2016 10:21 - CONCLUSION: 1. Uncomplicated infusion for spasmolysis Harvey Morejon MD Neck CTA 10/07/16 0000 Signed Impressions: Service Date/Time: Friday, October 07, 2016 15:03 - CONCLUSION: 1. Mild carotid bulb atherosclerotic calcification bilaterally. However, no significant stenosis is present in either internal carotid artery. 2. Paranasal sinus mucoperiosteal thickening. 3. Please refer to brain CTA report for description of the intracranial findings. Yosvany Ramirez MD Head CTA 10/07/16 0000 Signed Impressions: Service Date/Time: Friday, October 07, 2016 15:03 - CONCLUSION: 1. 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 2. Large left subdural hematoma measuring 1.3 cm in depth with a significant, 1.6 cm left to right subfalcine shift. oJni Shelton MD Physical Exam GENERAL: awake and alert, has a very congested moist cough, mild dyspneic at rest, on T-piece SKIN: Warm and dry. Has dry desquamating rash in bis back. erythematous rash on lateral trunk better HEAD: Incision healing with several areas that have eschar, no redness, craniectomy convex EYES: [place] conjunctiva. No petechia or hemorrhage. Pupils equal, round and reactive to light. Extraocular movements full and intact. No scleral icterus. No injection or drainage. EARS, NOSE AND THROAT: Nose without bleeding or purulent nasal discharge. NGT in place. No sinus tenderness. Slightly dry oral mucosa NECK: Trachea midline. Supple and not tender, no meningeal signs. Trach site ok CARDIOVASCULAR: Regular rate and rhythm. No murmurs, rubs or gallops heard RESPIRATORY: Equal breath sounds shereen. Diffuse rhonchi ABDOMEN: Soft, non-tender, nondistended. Bowel sounds present and normoactive. No guarding. No rebound. No organomegaly. EXTREMITIES: No clubbing, has mild pedal edema. Has dry gangrene LIF and R ring finger. All his toes have dry gangrene. No calf tenderness. Well perfused and warm. NEUROLOGICAL: Awake and alert. Mild facial asymmetry. Weak in all extremities PSYCHIATRIC: Normal affect, calm and cooperative. LINE: PIV with no evidence of infection : Maldonado in place, urine looks ok Assessment & Plan Remarks IMPRESSION Persistent fevers since 11/02, WBC has improved - CXR stable, new HCAP - UA 11/02 ok, has condom cath - no lines - has rash, ?fever due to Abx, ?Dilantin 2 BC with 2 different Coag Neg Staph, ?real, no lines now - last line removed 10/30 - ?contaminant S/P coiling aneurysm S/P craniectomy, decompression, evacuation of SDH Respiratory failure, S/P trach, on T-piece Rash likely drug eruption, ?Abx - B-lactam, ?Dilantin LV dysfunction RECOMMENDATION Continue Azactam Continue Diflucan Follow temps Follow C/S and adjust Abx Monitor skin/rash Monitor progress D/W Mitra Sears MD Nov 07, 2016 13:27
[2016-11-07] MEDS: MELATONIN 5 MG TAB PO SCH (20:14)
[2016-11-07] MEDS ORDERED: CHLORHEXIDINE GLUCONATE 4% SOLN 120 ML BTL TOP SCH (21:00)
[2016-11-08] VITALS (13 sets, daily range): BP systolic 115–136; BP diastolic 66–84; PULSE 78–103; RESP 15–26; TEMP 98.2–100.3; O2SAT 100
[2016-11-08] MEDS: CHLORHEXIDINE GLUCONATE 2 % 1 PACK (2 CLOTHS) TOP SCH (03:25)
[2016-11-08 05:13] LABS: EOSINOPHIL # 0.5 TH/MM3 (0-0.4); HEMATOCRIT 29.9 % (39.0-51.0); HEMO FLAGS DIFF FINAL; LYMPH % 18.4 % (9.0-44.0); LYMPHOCYTE # 0.9 TH/MM3 (1.0-4.8); MEAN CELL VOLUME 96.7 FL (80.0-100.0); MEAN CORPUSCULAR HEMOGLOBIN 32.2 PG (27.0-34.0); MEAN CORPUSCULAR HGB CONC 33.3 % (32.0-36.0); MONO % 9.8 % (0.0-8.0); NEUT % 59.8 % (16.0-70.0); PLATELET COUNT 185 TH/MM3 (150-450); RED CELL DISTRIBUTION WIDTH 13.8 % (11.6-17.2)
[2016-11-08 05:31] LABS: BICARBONATE 28.4 MEQ/L (21.0-32.0); POTASSIUM 3.8 MEQ/L (3.5-5.1)
[2016-11-08] MEDS: HEPARIN SODIUM - SQ 10,000 UNITS/ML VIAL SQ SCH ×3 (06:18→20:59)
[2016-11-08] MEDS: DILTIAZEM HCL 90 MG TAB PO SCH ×3 (06:18→17:57)
[2016-11-08] MEDS: oxyCODONE HCL ORAL CONC 20 MG/ML SYRINGE PO PRN (06:19)
[2016-11-08] MEDS: CHLORHEXIDINE 0.12% (ORAL KIT) 15 ML CUP MT SCH ×2 (08:00→20:58)
[2016-11-08] MEDS: AZTREONAM INJ 1,000 MG in SODIUM CHLORIDE 0.9% INJ 100 ML IV SCH (08:00)
--- NOTE | 2016-11-08 08:46 | HHI.CCPN ---
Subjective Remarks/Hospital Course 10/07: 56-year-old male presents with intracranial bleed. Patient was transferred from [facility] at [facility]. As per the paramedics and the nurse who assisted the patient said that patient earlier this morning was coming down the stairs when he started feeling some left-sided weakness and numbness. He called 911 and by the time EMS arrived they detected some deficit and called a stroke alert. Patient was taken to [facility]. When patient arrived his mental status started to decline and he was intubated emergently in the ER. A CAT scan of the head showed subarachnoid and subdural bleed. He was taking emergently to an angio suite for coiling of the aneurysm and later on to OR for subdural hematoma evacuation. 10/08: Remains sedated, orally intubated on mechanical ventilation. Arouses off sedation and following commands with both upper extremities earlier. Ventriculostomy in place. ICP 7, CPP mid 80s. 10/09: Remains sedated, orally intubated on mechanical ventilation. Arouses off sedation and follows commands with both upper extremities. Ventriculostomy in place. 10/10: Remains sedated, orally intubated on mechanical ventilation. Arouses off sedation and follows commands and both upper extremities. Ventriculostomy in place. ICP 5. Failed C Pap trial yesterday. 10/11: Extubated on 10/10, tolerating well. Awake and alert. Appears confused, moving all 4 extremities. Ventriculostomy discontinued today by neurosurgery 10/13: Patient has developed severe vasospasm at the left MCA territory on TCD's that was treated with IV route verapamil 10/14: patient extubated overnight. was originally following commands and neuro intact. TCDs this morning with increase LIs over yesterday, particularly Left MCA territory. On my evaluation early this morning, patient was aphasic, not moving the right side of his body, not following commands. SBP 140s at that time. net 2L negative/24h and uop almost 1L/hr at the time. I immediately bolused with 2L NS iv, placed arterial and central lines, started phenylephrine , increased SBP to goal 200 - 220 mmHg. called interventional neuroradiology and accompanied patient down personally to IR for IA verapamil again. I remained with the patient managing his hemodynamics down in IR and providing anxiolysis IV. I accompanied patient back up to [facility] where patient again was neuro intact and following commands. Sodium downtrending to 135 and urine studies and serum osms suggestive of urine sodium losses and high uop. added Florinef to mitigate sodium losses, and increased mivf to 500cc/hr to maintain euvolemia. later in the day patient decompensated requiring intubation for hyoxemia, cxr suggestive of pulmonary edema. 2d echo with evidence of EF 40%, septal hypokinesis, moderate MR. On levo, vaso, phenylephrine. difficult to get to goal SBP 200 mmHg, likely due to myocardial dysfunction. decreased goal to 180 - 200 mmHg to balance cardiac vs. neurologic goals. 10/15 Patient was discussed with Dr. Sullivan at shift change. Isuprel was initiated in effort to improve cardiac output as dobutamine not available and concerned with use of milrinone given long half life. Systolic blood pressure was relatively stable with perhaps some modest improvement from 170s to 180s for several hours after initiation. Notified when patient became abruptly hypotensive despite vasopressin, levophed 20 mcg/min, Greyson-Synephrine 300 mcg/m. He was also hypoxemic with sats in 80s despite PCV with PEEP 8 and FiO2 100%, respiratory rate in the 30s. He had decreased breath sounds bilaterally and was concerned for air trapping so removed from mechanical ventilation and bagged without improvement. Placed patient back on mechanical ventilation and provide recruitment maneuvers and increased PEEP to 12 which resulted in improvement of sats to 88% to 92%. Ordered Flolan. Discontinued isuprel and initiated epinephrine. R radial art line would not draw blood . Performed u/s guided femoral artery stick to confirm hypoxemia on ABG given poor wave form on pulse ox and PaO2 was 58. Placed new L radial art line and this resulted in ~ 30 point increase in SBP relative to prior line but patient ultimately on vasopressin, levophed 30 micrograms per minute, Greyson-Synephrine 300 micrograms per minute, epinephrine 12 mcg/min and unable to maintain target pressure (SBP in 150s). Given calcium chloride. patient with shaking movements all extremities, pupils 2mm and sluggish, no eye deviation. Rigors seemed most likely but unable to emergently rule out seizures so loaded with fosphenytoin to avoid secondary injury from seizure activity. WBC increasing and concern for HCAP so pancultured and placed on cefepime, vancomycin, azithromycin. Hydrocortisone 100 mg IV every 8 hours initiated due to concern for septic shock in a patient who has been refractory to all other above measures. Patient is to hemodynamically unstable and hypoxic for transport for neurologic imaging. Urine output has declined to 180-200 ML's per hour. Back off maintenance IV fluids to 200 ML's per hour. Bedside echo demonstrates decreased LV function with normal RV contractility and collapsible IVC suggesting ongoing maintenance fluid administration is appropriate. 10/15 additional visit: continued to deteriorate throughout the day. Seen multiple times. hypoxic on 100% fio2, flolan. required nimbex drip to maintain. repeat bedside critical care ultrasound still demonstrates severe LV dysfunction , decompressed RV, IVC more dilated than previous echo overnight, however still with respiratory variation. femoral arterial line placed with better waveform and higher pressure (likely SVR too high to allow accurate measurement of radial pressure). Pulse contour analysis without stroke volume variation, CI 3.6. SV 52mL. trialed additional albumin without improvement in hemodynamics. uop slower than before, but still significant salt wasting in the urine- sodium dropped to 125 from 132 despite already on 3% nacl infusion and aggressive sodium replacements. forced to give 23% nacl and salt tabs. declining clinically despite maximal therapy. 10/16: continues to be maximally critically ill. LV dysfunction persists. starting to get volume overloaded, but given concern for ongoing cerebral vasospasm, unable to actively diurese patient. sodium wasting persists, but uop downtrending slightly. very hypokalemic today, likely due to steroids. remains intubated, sedated, paralyzed, on flolan. CXR today appears worse with worsening airspace disease. Lactate remains slightly elevated, confirming persistent shock. 10/17: Lung infiltrates dense bilaterally, reflected in shunting and problems with oxygenation. Developed vasospasm on TCDs and required angiogram and intra- arterial verapamil again today. 10/18: SBP 160 - 170 range. FiO2 0.55. BNP > 5000. Not tolerating attempts at maintaining higher BP due to worsening heart failure. Several episodes of vasospasm. Watch daily TCDs closely. Sputum no growth. 10/19: Tmax 99.8. Currently 99. Remains on 4 vasopressors and epoprostenol 10/20: Yesterday. Returned IR for intra-arterial calcium channel jose infusion for vasospasm. Transcranial Dopplers today Still pending. Remains on significant vasopressor support. 10/21: Good response to diuresis, check BNP. TCDs pending. Heart failure remains a major problem. 10/22: CVP 21 - 22, finger tips blue, digits pale white despite high dose milrinone dilation. Greyson and vaso much reduced. Will try diltiazem gtt for digital ischemia. Urine remains > 200/hr and proximal limbs are well perfused. This digital ischemia appears to be a local phenomenon ala Raynaud's. New subcutaneous emphysema right anterior chest wall. 10/23: Old CVL removed. Fingertips remain marginal, some necrotic despite diltiazem and milrinone treatment for digital ischemia. Cardiac output > 7 liters/min and urine copious, confirming good perfusion pressure and flow. This continues to be a local phenomenon of the digits ala Raynaud's. We are trying to wean vasopressors off but are required to maintaining a cerebral perfusion pressure suitable for the treatment of aneurysmal subarachnoid bleed. Frankly, the importance of brain function eclipses fingertips. 10/24: Afebrile. Well perfused except for index finger left hand, few tips fingers right. Arms and hands warmer with resolving circumferential edema. Diltiazem and milrinone gtt continue. Greyson to 10 mics/min. 10/25: Digits are warm and well perfused except left index and right 4th fingertips; demarcated and not viable. Dry. Diltiazem and milrinone infusions continue to help reverse digital ischemia. 10/26: Forced diuresis continues and BP remains nicely elevated. Hands and digits warm aside from left index and right 4th fingertips which have demarcated. 10/27: Good response to diuretics. Perfusion pressure and documented flow excellent. Continue to wean vent. 10/28: Start SBTs. Fluid balance back toward normal. 10/29: Tolerating SBTs. Lowering sedation. Edema resolving. 10/30: Tolerating tube feeds, will taper off TPN and remove central line. Continue diuretics. 10/31: net -3L over 24h. mental status at baseline. tolerating CPAP, but does not have the mental status to protect airway. will likely need trach/peg. placement will be a problem due to lack of funding. 11/01: no changes or improvements. discussed with yesterday and she "does not want any more setbacks" and would prefer trach versus trial of extubation. I agree with her assessment. plan for trach today. placement is still a significant problem. net -2L/24h. 11/02: wbc uptrending, febrile. antonio cultured, started empiric abx today. failed SBT overnight and placed back on rate. 11/03: Tolerating CPAP today, following commands. Low-grade fever cultures pending. WBC count normal today 11/04: Remains on TPs since yesterday. Neuro exam remains stable. Follows commands weakly. Na 152 11/05: Remains off vent for 48 hours now. Sitting up in stretcher chair today. Na improved to 149. remains weak but improving SUBJECTIVE 11/06: Continues to tolerate TPs well. Neuro exam unchanged. Sodium 148 today. Continues to spike intermittent fever Tmax 102.7. 11/07: Continued fevers, no leukocytosis. 11/08: Stable for replacement of bone flap. Objective Vital Signs Date Time Temp Pulse Resp B/P (MAP) Pulse Ox O2 Delivery O2 Flow Rate FiO2 11/08/16 06:00 86 11/08/16 04:00 98.2 15 134/84 (101) 100 11/06/16 20:58 T-piece 6.00 28 Intake and Output 11/08/16 11/08/16 11/09/16 08:00 16:00 00:00 Intake Total 1117 ml Output Total 1150 ml Balance -33 ml Result Diagram: 11/08/16 0451 11/08/16 0451 Imaging Last Impressions Chest X-Ray 10/20/16 0000 Signed Impressions: Service Date/Time: October 03:47 - CONCLUSION: 1. Stable tubes and lines. 2. Stable bilateral lower lung zone airspace disease. 3. Stable small right pleural effusion. 4. No significant interval change. Kev Vergara MD Transcranial Doppler Study Complete 10/19/16 0600 Signed Impressions: Service Date/Time: Wednesday, October 19, 2016 08:02 - CONCLUSION: Suspect developing right MCA vasospasm Yosvany Polk MD Liver Ultrasound 10/19/16 0000 Signed Impressions: Service Date/Time: Wednesday, October 19, 2016 11:20 - CONCLUSION: 1. Sludge filled gallbladder with thickened wall. 2. Moderate size bilateral pleural effusions and mild upper abdominal ascites. Santos Vazquez MD Head CT 10/17/16 0000 Signed Impressions: Service Date/Time: Monday, October 17, 2016 15:06 - CONCLUSION: Ventricles are slightly larger without ventriculostomy. Edema in the left hemisphere the brain herniating through the operative site. Remington Woodward MD FACR Cerebral Arteriogram 10/17/16 0000 Signed Impressions: Service Date/Time: Monday, October 17, 2016 00:00 - CONCLUSION: 1. Uncompensated spasmolysis of the left middle cerebral artery Harvey Morejon MD Infusion Non-thrombolysis 10/14/16 1103 Signed Impressions: Service Date/Time: Friday, October 14, 2016 10:21 - CONCLUSION: 1. Uncomplicated infusion for spasmolysis Harvey Morejon MD Neck CTA 10/07/16 0000 Signed Impressions: Service Date/Time: Friday, October 07, 2016 15:03 - CONCLUSION: 1. Mild carotid bulb atherosclerotic calcification bilaterally. However, no significant stenosis is present in either internal carotid artery. 2. Paranasal sinus mucoperiosteal thickening. 3. Please refer to brain CTA report for description of the intracranial findings. Yosvany Ramirez MD Head CTA 10/07/16 0000 Signed Impressions: Service Date/Time: Friday, October 07, 2016 15:03 - CONCLUSION: 1. 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 2. Large left subdural hematoma measuring 1.3 cm in depth with a significant, 1.6 cm left to right subfalcine shift. Joni Shelton MD Objective Remarks GENERAL: 56-year-old male, trached. Lying in bed HEAD: Status post left craniectomy. Left flap sunken, Incision healing well EYES: About 3 mm bilaterally and reactive NECK: Trachea midline. 8.0 Shiley cuffed trach CARDIOVASCULAR: S1-S2 normal no murmurs RESPIRATORY: Diminished breath sounds bilateral lower lobes. GASTROINTESTINAL: Abdomen soft, non-tender, nondistended. MUSCULOSKELETAL: Ischemic changes to left index finger tip and right 4th fingertip, and majority of R toes NEURO EXAM: Opens eyes follows command, right UE weaker than left, follows commands x4. Attempts to mouth words Procedures 10/13 Four-vessel cerebral angiography with verapamil treatment of vasospasm A/P Assessment and Plan Neuro/Psych Status post left frontotemporal parietal craniectomy 10/08 for evacuation subdural hematoma/duraplasty Left subdural hematoma - 1.3 cm with 1.6 shift left to right Subarachnoid hemorrhage Alvarado and Rodriguez 5, Carroll grade 4 - left P-comm status post 4 coiling 10/08 - Nimodipine completed 21 days. Initiated 10/13. - Levetiracetam 500 mg per tube twice a day with phenytoin 100mg per tube q8h. Fever persisting- DC phenytoin, observe clinically, check EEG - 10/13 and 10/14 and 10/17) 10/19 left MCA territory vasospasm, status post successful verapamil treatment by IR with 20 mg verapamil - SBP goal now reduced to <140. - 10/17 CT brain - less hemisphere edema with herniation through left craniotomy site - Dr. Perry/neurosurgery. Plan to replace bone flap- not cleared until bacteremia fever subsides Respiratory: Acute hypoxic Respiratory failure-ARDS- resolved Noncardiogenic/neurogenic pulmonary edema -- Nebs, HOB at 30 degrees. Remains on TP last 72 hours -- Albuterol/Atrovent every 6 hours with albuterol aerosols every 2 hours for Dyspnea -- continue TP 05/09 as tolerated. Up to stretcher chair daily -- s/p Trach Dr. Sullivan/Dr. Collazo 11/01 Cardiovascular: Severe shock - septic and cardiogenic- resolved. Severe LV dysfunction secondary to SAH - persistent. Elevated troponin- secondary to SAH, unlikely to be ACS. - resolved. Pulmonary hypertension Continue diuresis. Free water replacement with half normal saline for 24 hours completed 11/05 Na improved, free water through NG tube Echocardiogram 10/14/16 revealed EF 40-45%. Septal hypokinesis. Moderate MR. Severe pulmonary hypertension with pulmonary artery pressures estimated 61 mmHg Repeat Echo to rule out veg- has underlying MR Renal: Cerebral Salt Wasting/SIADH-resolved now hypernatremic Strict I/Os. See FEN below. Creatinine currently within normal limits FEN/GI: Severe hyponatremia-resolved now hypernatremic Hypokalemia Elevated transaminases Hyperammonemia - DCd sodium chloride 3gm po TID 11/04 - Half-normal saline for 24 hours completed; continue free water 250 mL 4 times a day - ICU electrolyte protocol. aggressively replace potassium losses. - Lansoprazole 30 mg by tube daily for GI prophylaxis - Docusate sodium 100 mg twice a day, senna liquid 8.6 mg twice a day and polyethylene glycol 3350 17 g twice a day for bowel regimen - Lactulose 30 cc QID. ammonia 46 on 10/31, repeat tomorrow - NPO per speech, Continue NGT feeding Heme/ID: Septic Shock- resolved. Possible HCAP New Fever, leukocytosis, staph epi bacteremia - limited Echo to evaluate vegetation. DC Dilantin. Consult ID, need clearance for bone flap replacement also - Digital Ischemia with necrosis, conservative management - s/p Diltiazem and milrinone infusions - Digits have demarcated. cardizem PO (for digital ischemia, Raynaud's) Pertinent cultures 10/15 - blood cultures - 1 out of 4 anaerobic gram-negative cocci possibly Veillonella 10/15 - sputum - beta strep not A, strep species 10/19 cultures NG 10/21 02/16 bottles blood cultures coag negative staph. Culture 11/01. coag neg stah 03/19 bottles f/u 11/01 blood, sputum, urine cultures. Continue vancomycin, cefepime, flagyl. DCd Flagyl 11/04 C diff negative. Consult infectious diseases Endocrine: Presumed Adrenal Insufficiency Discontinued fludrocortisone 10/18. Monitor sodium 6 hours. Sliding-scale insulin with NovoLog -Accu-Cheks every 4 hours to maintain euglycemia d/cd Levemir bid. Taper off cortisone -> done Prophylaxis: GI Prophylaxis - lansoprazole DVT Prophylaxis-- SCDs, heparin subcutaneous Lines: - 10/14 right SC TLC, removed 10/22 - 10/14 right radial art line, removed 10/14 - 10/15 left radial art line, removed 10/16 - 10/15 left femoral art line - 10/22 left groin triple lumen placed, d/c 10/30 - d/c ramires. Overall impression: No change. The patient's digital ischemia developed when he had a cardiac output over 8.0 liters/min, CVP was over 20 mm Hg, and urine over 75 ml/hr for many days. BNP was elevated at 777. His hands and feet were warm but the fingers and toes became cold, white, nearly cadaveric. Neosynephrine was only vasopressor and it was at 30 units/min only. We stopped it immediately and started milrinone and cardizem iv infusions. Most fingers and toes responded well to the vascular dilators but a few digits demarcated and became necrotic. Anticoagulation was not an option in face of recent aneurysm rupture and gastritis. Patients with this degree of digital ischemia (severe Raynaud's) usually have an underlying illness such as malignancy, mixed connective tissue disorder, collagen vascular disease, rheumatoid disease, etc. This workup can progress after he has cleared exogenous steroids which were just stopped. He's in a pretty revved up inflammatory state now and the lab values will be altered by it. Overall impression: Stable for replacement of bone flap. Rodriguez Collazo MD Nov 08, 2016 08:46
[2016-11-08] MEDS: SODIUM CHLORIDE 0.9% FLUSH 10 ML FLUSH IV FLUSH SCH ×2 (08:56→20:58)
[2016-11-08] MEDS: ARTIFICIAL TEARS OPTH SOLN 15 ML BTL EACH EYE SCH ×3 (08:56→17:58)
[2016-11-08] MEDS: BENEPROTEIN POWDER 1 PACK G-TUBE SCH ×3 (09:00→17:59)
[2016-11-08] MEDS: LACTULOSE SYRUP 20 GM/30 ML CUP OG-TUBE SCH ×4 (09:50→20:58)
[2016-11-08] MEDS: FLUCONAZOLE 100 MG TAB PO SCH (09:50)
[2016-11-08] MEDS: LANSOPRAZOLE SOLUTAB 30 MG TAB NG SCH (09:50)
[2016-11-08] MEDS: FUROSEMIDE 40 MG/4 ML VIAL IV PUSH SCH (09:50)
[2016-11-08] MEDS: levETIRAcetam 500 MG/5 ML UDC NG SCH ×2 (09:50→20:58)
[2016-11-08] MEDS: LACTOBACILLUS ACIDOPHILUS TAB PO SCH ×3 (09:50→17:57)
--- NOTE | 2016-11-08 09:59 | HHI.NSPN ---
(Malinda Hines) Note Status Status: Progress Note (Malinda Hines) Interval History Interval History This is a 56-year-old male brought to the emergency room as an emergency transfer from another institution with history of intracranial bleed. He was transferred from [facility] and [facility]. Apparently the patient said that patient earlier this morning was coming down the stairs when he started feeling some left-sided weakness and numbness. He called 911 and by the time EMS arrived they detected severe neurological deficits and called a stroke alert. No seizure activity reported. No tongue biting. No incontinence of stool or urine. Patient was taken to [facility]. Apparently he was not able to move his right side . When patient arrived his mental status started to decline and he was intubated emergently in the ER for airway protection. A CT scan of the head showed extensive subarachnoid bleed. In addition he had a sizable subdural hematoma. He was brought emergently on the ventilator. He was on a propofol drip and well sedated. GCS was 3. He was on a Cardene drip and blood pressure was in the 120s. Neurosurgical consultation was requested 10/08. POD #1 Open eyes and follows commands 10/12. Doing very well. Neurologically stable. Patient is in restraints secondary to pulling out his Maldonado multiple times. 10/13. Much more lethargic, difficult to speak with new aphasia 10/14. Improved after angiography. Today he developed new onset of aphasia and right hemiparesis 10/17. Intubated and sedated. Lung infiltrates dense bilaterally, reflected in shunting and problems with oxygenation. 10/18: underwent endovascular verapamil infusion to left MCA vasospasm yesterday. TCD today pending. left flap pak today. Intubated and sedated. continues to be on multiple pressors. on 3% NS. 10/19: currently unstable for travel for repeat CT Head this am. no changes with neuro checks, remains intubated, sedated. pupils equal. continues on multiple pressors support 10/20: intubated and mildly sedated. remains on multiple pressors. pneumonia worsening. TCD this am reports slight increase in flow velocity to left, he underwent cerebral angiography yesterday with endovascular verapamil infusion right ICA. 10/21: intubated, sedated on fentanyl and versed. On Nimbex. 10/25: off Nimbex. Mildly opening eyes today. 10/26: opening eyes more today, ?focusing 10/27: intubated, minimal eye opening. not following commands. 10/28: appears more awake, following commands, focusing and tracked. shook head no when asked if doing ok. 10/31: remains intubated, tracking more today, not following with extremities 11/01: nursing reports intermittently follows commands to upper extremities. for tracheostomy today. 11/02: s/p tracheostomy, smiling today, following commands. 11/03: smiling and nodding appropriately. PT at bedside. 11/04: mouthing some words today, no acute events overnight 11/07: doing well, left craniectomy site well decompressed. febrile, ID consulted. 11/08: no changes to neuro examination, low grade fevers again this morning (Malinda Hines) Labs, Micro, & Vital Signs Results Date Time Temp Pulse Resp B/P (MAP) Pulse Ox O2 Delivery O2 Flow Rate FiO2 11/08/16 08:51 100 T-piece 6.00 28 11/08/16 08:00 90 11/08/16 08:00 27 11/08/16 08:00 98.6 90 26 115/75 (88) 100 11/08/16 06:00 86 11/08/16 04:00 98.2 79 15 134/84 (101) 100 11/08/16 04:00 79 11/08/16 02:00 87 11/08/16 00:00 100.3 78 21 136/77 (96) 100 11/08/16 00:00 78 11/07/16 22:00 91 11/07/16 20:00 99.5 94 24 131/84 (100) 100 11/07/16 20:00 94 11/07/16 18:00 102 11/07/16 16:00 98 11/07/16 16:00 98.6 95 27 125/91 (102) 100 11/07/16 14:00 95 11/07/16 12:00 98.8 94 28 136/83 (100) 100 11/07/16 12:00 95 11/07/16 10:00 103 Constitutional Vital Signs Date Time Temp Pulse Resp B/P (MAP) Pulse Ox O2 Delivery O2 Flow Rate FiO2 11/08/16 08:51 100 T-piece 6.00 28 11/08/16 08:00 90 11/08/16 08:00 27 11/08/16 08:00 98.6 90 26 115/75 (88) 100 11/08/16 06:00 86 11/08/16 04:00 98.2 79 15 134/84 (101) 100 11/08/16 04:00 79 11/08/16 02:00 87 11/08/16 00:00 100.3 78 21 136/77 (96) 100 11/08/16 00:00 78 11/07/16 22:00 91 11/07/16 20:00 99.5 94 24 131/84 (100) 100 11/07/16 20:00 94 11/07/16 18:00 102 11/07/16 16:00 98 11/07/16 16:00 98.6 95 27 125/91 (102) 100 11/07/16 14:00 95 11/07/16 12:00 98.8 94 28 136/83 (100) 100 11/07/16 12:00 95 11/07/16 10:00 103 (Malinda Hines) Physical Exam Alert. nodding appropriately to questions Neck: tracheostomy CN: pupils 3-4 mm bilaterally Left flap is well decompressed. Motor: minimal movement x 4 extremities, UE>LE (Malinda Hines) Medications Current Medications Current Medications Medications (Trade) Dose Ordered Sig/Adali Route PRN Reason Start Time Stop Time Status Last Admin Dose Admin Chlorhexidine Gluconate (Peridex 0.12% Liq) 15 ml BID@08,20 MT 10/07/16 20:00 11/08/16 08:00 Ondansetron HCl (Zofran Inj) 4 mg Q6H PRN IV NAUSEA OR VOMITING 10/07/16 18:30 Calcium Gluconate (Calcium Gluconate Inj) 1 gm UNSCH PRN IV SEE LABEL COMMENTS 10/07/16 18:30 10/16/16 10:00 Potassium Chloride 100 ml @ 50 mls/hr UNSCH PRN IV POTASSIUM LESS THAN 4 10/07/16 18:30 11/06/16 08:55 Magnesium Sulfate 4 gm/Sodium Chloride 108 ml @ 108 mls/hr UNSCH PRN IV MAGNESIUM LESS THAN 2 10/07/16 18:30 Acetaminophen (Tylenol) 650 mg Q4H PRN PO TEMP >100.4 10/07/16 18:30 11/06/16 16:50 Dextrose (D50w (Vial) Inj) 50 ml UNSCH PRN IV PUSH HYPOGLYCEMIA - SEE COMMENTS 10/07/16 19:15 11/01/16 09:22 Glucagon (Glucagon Inj) 1 mg UNSCH PRN OTHER HYPOGLYCEMIA-SEE COMMENTS 10/07/16 19:15 Heparin Sodium (Porcine) (Heparin Inj) 5,000 units Q8HR SQ 10/14/16 22:00 11/08/16 06:18 Magnesium Oxide (Mag-Ox) 800 mg UNSCH PRN PO For Magnesium 1.2 - 1.6 mg/dL 10/16/16 09:15 Magnesium Sulfate 4 gm/Sodium Chloride 100 ml @ 50 mls/hr UNSCH PRN IV For Magnesium 0.9 - 1.1 mg/dL 10/16/16 09:15 Magnesium Sulfate 2 gm/Sodium Chloride 100 ml @ 50 mls/hr UNSCH PRN IV For Magnesium 1.2 - 1.6 mg/dL 10/16/16 09:15 Potassium Chloride 100 ml @ 50 mls/hr Q2H PRN IV For Potassium 2.8 - 3.2 mEq/L 10/16/16 09:15 11/04/16 13:37 Potassium Chloride 100 ml @ 50 mls/hr Q2H PRN IV For Potassium 3.3 - 3.5 mEq/L 10/16/16 09:15 Potassium Chloride 100 ml @ 50 mls/hr Q2H PRN IV For Potassium 2.8 - 3.2 mEq/L 10/16/16 09:15 10/27/16 13:26 Potassium Chloride 100 ml @ 25 mls/hr UNSCH PRN IV For Potassium 3.3 - 3.5 mEq/L 10/16/16 09:15 10/30/16 06:06 Potassium Phosphate (K-Phos) 2,000 mg Q4H PRN PO For Phosphorus < 2.5 mg/dL 10/16/16 09:15 Potassium Phosphate (K-Phos) 2,000 mg UNSCH PRN PO/TUBE SEE LABEL COMMENTS 10/16/16 09:15 Potassium Phosphate 30 mmol/ Sodium Chloride 260 ml @ 42 mls/hr UNSCH PRN IV SEE LABEL COMMENTS 10/16/16 09:15 10/24/16 20:39 Sodium Phosphate 30 mmol/Sodium Chloride 250 ml @ 42 mls/hr UNSCH PRN IV For Phosphorus < 2.5 mg/dL 10/16/16 09:15 10/22/16 06:46 Calcium Gluconate 1 gm/Sodium Chloride 110 ml @ 110 mls/hr UNSCH PRN IV For Protein Corrected Calcium 10/18/16 09:45 10/18/16 10:22 Lansoprazole (Prevacid Odt) 30 mg DAILY NG 10/20/16 09:00 11/08/16 09:50 Sodium Chloride (NS Flush) 2 ml UNSCH PRN IV FLUSH FLUSH AFTER USING IV ACCESS 10/19/16 09:45 Sodium Chloride (NS Flush) 2 ml BID IV FLUSH 10/19/16 21:00 11/08/16 08:56 Artificial Tears (Tears Naturale Opth Soln) 1 drop TID EACH EYE 10/19/16 13:00 11/08/16 08:56 Albuterol Sulfate (Albuterol Neb) 2.5 mg Q2HR NEB PRN INH SOB/WHEEZING 10/19/16 09:45 Miscellaneous Information 1 Q361D XX 10/19/16 09:45 Chlorhexidine Gluconate (Chlorhexidine 2% Cloth) 3 pack Taper DAILY@04 TOP 10/20/16 04:00 10/16/17 03:59 10/23/16 04:20 Chlorhexidine Gluconate (Chlorhexidine 2% Cloth) 3 pack UNSCH PRN TOP HYGIENIC CARE 10/19/16 09:45 Furosemide (Lasix Inj) 40 mg DAILY IV PUSH 10/28/16 09:00 11/08/16 09:50 Protein (Beneprotein Powder) 1 pack TID G-TUBE 10/29/16 13:00 11/06/16 17:00 Levetriacetam (Keppra Liq) 500 mg Q12HR NG 10/31/16 21:00 11/08/16 09:50 Lactulose (Lactulose Liq) 30 ml QID OG-TUBE 11/01/16 09:00 11/08/16 09:50 Oxycodone HCl (Roxicodone Intensol Liq) 10 mg Q4H PRN PO pain 1-6 11/01/16 15:00 11/08/16 06:19 Hydromorphone HCl (Dilaudid Pf Inj) 0.5 mg Q4H PRN IV PUSH pain 7-10 or not taking po 11/01/16 15:00 11/02/16 10:49 Haloperidol Lactate (Haldol Inj) 5 mg Q4H PRN IV PUSH agitation 11/01/16 15:00 Melatonin (Melatonin) 5 mg HS PO 11/01/16 21:00 11/07/16 20:14 Diltiazem HCl (Cardizem) 90 mg Q6HR PO 11/02/16 12:00 11/08/16 06:18 Insulin Aspart (NovoLOG SUPPLEMENTAL SCALE) 1 Q12H SQ 11/03/16 12:00 11/04/16 00:42 Aztreonam 1000 mg/ Sodium Chloride 100 ml @ 200 mls/hr Q8H IV 11/06/16 16:00 11/08/16 08:00 Lactobacillus Acidophilus (Lactinex) 1 tab TID PO 11/06/16 18:00 11/08/16 09:50 Fluconazole (Diflucan) 100 mg DAILY PO 11/06/16 16:00 11/08/16 09:50 (Malinda Hines) Medical Decision Making MDM Remarks 56 y/o male with 1. Subarachnoid hemorrhage, status post coiling posterior communicating artery aneurysm. s/p left decompressive craniectomy Vasospasms, s/p endovascular verapamil infusions 10/13/16, 10/17/16, 10/19/16. Neurologically exam continues to improve. Left craniectomy site now well decompressed 2. Possible seizures. Remains on Keppra and Cerebyx 3. Respiratory failure, improving, s/p tracheostomy 4. Fevers - ?source, cultures pending, ID following (Malinda Hines) Plan Plan Remarks cont critical care cont therapy and rehab efforts hold cranioplasty unit afebrile and ID w/u completed and free of infection, will follow up next week discussed with nursing (Malinda Hines) Attending Statement The exam, history, and the medical decision-making described in the above note were completed with the assistance of the mid-level provider. I reviewed and agree with the findings presented. I attest that I had a [id number] encounter with the patient on the same day, and personally performed and documented my assessment and findings in the medical record. (George Perry MD) Malinda Hines Nov 08, 2016 09:59 George Perry MD Nov 12, 2016 09:34
[2016-11-08] MEDS: INSULIN ASPART SUPPLEMENTAL SCALE SQ SCH ×2 (12:00)
[2016-11-08] MEDS: LEVOFLOXACIN 750 MG TAB PO SCH (13:00)
[2016-11-08] MEDS: predniSONE 20 MG TAB PO SCH ×2 (13:00→20:58)
--- NOTE | 2016-11-08 13:06 | HHI.IDPN ---
Subjective Subjective Remarks Patient is a 56-year-old male, initially admitted at [facility] after he developed acute onset of left-sided weakness and numbness. In [facility] emergency room his mental status deteriorated, and he required intubation. CT of the head showed subarachnoid bleed. He was transferred to [facility] for neurosurgical evaluation and treatment. Patient underwent angiogram and coiling of his aneurysm. He also underwent emergency surgery and had left frontal temporal parietal decompressive craniectomy, duraplasty, and evacuation of a subdural hematoma. He had a ezio hole and the ventriculostomy placement. His hospitalization was complicated by significant vasospasm of his cerebral arteries, and he had multiple angiogram and treatment of the vasospasm. He also had problem with significant LV dysfunction in both volume overload. His had hyponatremia that has been treated and corrected. He initially started having fevers and some clinical deterioration as far as infection around the first week of October. He had a sputum culture that had pneumococcus, beta- hemolytic strep and Haemophilus. He had one out of 2 blood culture that had anaerobic gram-negative cocci. He was on antibiotics up until October 23. Patient also required significant amount of pressors to maintain an adequate blood pressure to ensure cerebral perfusion. 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 Patient eventually underwent tracheostomy for his continued respiratory requirement, and had this procedure done November 01. Patient currently has been doing quite well and not requiring ventilatory support, and on T piece. Starting November 02 he started having fevers again as well as increased WBC. Repeat cultures at that time grew 2 blood cultures that had coag-negative staph. His central lines have been removed. Patient also has had liquid stool, but C. difficile is negative. Urinalysis done was unremarkable. Patient was started back on antibiotics on November 02 and has been on cefepime and IV vancomycin. He continues to have fevers. His WBC has been down to normal. His last chest x- ray yesterday showing stable infiltrates. He has no central line. He has a Maldonado catheter in place. He has an NG tube and gets tube feedings. Infectious disease consultation has been requested to evaluate the patient for persistent fevers. Notes reviewed D/W RN One low grade temps today On T-piece Has loose stool BC negative WBC normal UA ok Sputum normal slim Antibiotics Azactam Diflucan Lines PIV Past Medical History Hypertension Past Surgical History Status post trach Status post craniectomy for evacuation of subdural hematoma Allergies: Coded Allergies: No Known Allergies (Unverified , 05/06/16) Objective . Vital Signs Date Time Temp Pulse Resp B/P (MAP) Pulse Ox O2 Delivery O2 Flow Rate FiO2 11/08/16 12:00 94 11/08/16 12:00 98.8 94 21 119/76 (90) 100 11/08/16 10:00 86 11/08/16 08:51 100 T-piece 6.00 28 11/08/16 08:00 90 11/08/16 08:00 27 11/08/16 08:00 98.6 90 26 115/75 (88) 100 11/08/16 06:00 86 11/08/16 04:00 98.2 79 15 134/84 (101) 100 11/08/16 04:00 79 11/08/16 02:00 87 11/08/16 00:00 100.3 78 21 136/77 (96) 100 11/08/16 00:00 78 11/07/16 22:00 91 11/07/16 20:00 99.5 94 24 131/84 (100) 100 11/07/16 20:00 94 11/07/16 18:00 102 11/07/16 16:00 98 11/07/16 16:00 98.6 95 27 125/91 (102) 100 11/07/16 14:00 95 . Laboratory Tests Test 11/07/16 04:25 11/08/16 04:51 White Blood Count 5.6 TH/MM3 5.0 TH/MM3 Red Blood Count 2.73 MIL/MM3 3.10 MIL/MM3 Hemoglobin 8.6 GM/DL 10.0 GM/DL Hematocrit 26.3 % 29.9 % Mean Corpuscular Volume 96.4 FL 96.7 FL Mean Corpuscular Hemoglobin 31.4 PG 32.2 PG Mean Corpuscular Hemoglobin Concent 32.6 % 33.3 % Red Cell Distribution Width 14.2 % 13.8 % Platelet Count 174 TH/MM3 185 TH/MM3 Mean Platelet Volume 10.0 FL 9.7 FL Neutrophils (%) (Auto) 59.8 % Lymphocytes (%) (Auto) 18.4 % Monocytes (%) (Auto) 9.8 % Eosinophils (%) (Auto) 11.0 % Basophils (%) (Auto) 1.0 % Neutrophils # (Auto) 3.0 TH/MM3 Lymphocytes # (Auto) 0.9 TH/MM3 Monocytes # (Auto) 0.5 TH/MM3 Eosinophils # (Auto) 0.5 TH/MM3 Basophils # (Auto) 0.0 TH/MM3 CBC Comment DIFF FINAL Differential Comment Laboratory Tests Test 11/07/16 04:25 11/08/16 04:51 Blood Urea Nitrogen 23 MG/DL 19 MG/DL Creatinine 0.43 MG/DL 0.52 MG/DL Random Glucose 102 MG/DL 101 MG/DL Calcium Level 8.1 MG/DL 8.0 MG/DL Sodium Level 145 MEQ/L 142 MEQ/L Potassium Level 3.5 MEQ/L 3.8 MEQ/L Chloride Level 110 MEQ/L 108 MEQ/L Carbon Dioxide Level 27.0 MEQ/L 28.4 MEQ/L Anion Gap 8 MEQ/L 6 MEQ/L Estimat Glomerular Filtration Rate 206 ML/MIN 166 ML/MIN Microbiology Date/Time Source Procedure Growth Status 11/06/16 20:48 Blood Peripheral Aerobic Blood Culture - Preliminary NO GROWTH IN 2 DAYS Resulted 11/06/16 20:48 Blood Peripheral Anaerobic Blood Culture - Preliminary NO GROWTH IN 2 DAYS Resulted 11/06/16 20:41 Blood Peripheral Aerobic Blood Culture - Preliminary NO GROWTH IN 2 DAYS Resulted 11/06/16 20:41 Blood Peripheral Anaerobic Blood Culture - Preliminary NO GROWTH IN 2 DAYS Resulted 11/06/16 13:00 Sputum Endotracheal Gram Stain - Final Complete 11/06/16 13:00 Sputum Endotracheal Sputum Culture - Final HEAVY GROWTH NORMAL RESPIRATORY SLIM Complete 11/06/16 13:00 Urine Random Urine Urine Culture - Final <10,000 CFU/ML GRAM POSITIVE SLIM Complete Imaging Chest X-Ray 11/05/16599 Signed Impressions: Service Date/Time: Saturday, November 05, 2016 04:39 - CONCLUSION: Persistent non-consolidative infiltrates in the medial lower lungs. Santos Vazquez MD Abdomen X-Ray 10/21/16599 Signed Impressions: Service Date/Time: Friday, October 21, 2016 03:50 - CONCLUSION: 1. NGT in the stomach. 2. General paucity of small bowel gas. This finding is nonspecific and occasionally may reflect fluid-filled loops of bowel. Otherwise, no dilated bowel loops to suggest significant ileus or obstruction. Kev Vergara MD Transcranial Doppler Study Complete 10/20/16 0600 Signed Impressions: Service Date/Time: October 07:54 - CONCLUSION: Slight interval elevation of flow velocity measurements and ratio on the left Ysovany Polk MD Liver Ultrasound 10/19/16 0000 Signed Impressions: Service Date/Time: Wednesday, October 19, 2016 11:20 - CONCLUSION: 1. Sludge filled gallbladder with thickened wall. 2. Moderate size bilateral pleural effusions and mild upper abdominal ascites. Santos Vazquez MD Cerebral Arteriogram 10/19/16 0000 Signed Impressions: Service Date/Time: Wednesday, October 19, 2016 12:47 - CONCLUSION: Uncomplicated cerebral arteriography with spasmolytic therapy as described in detail above. Yosvany Polk MD Head CT 10/17/16 0000 Signed Impressions: Service Date/Time: Monday, October 17, 2016 15:06 - CONCLUSION: Ventricles are slightly larger without ventriculostomy. Edema in the left hemisphere the brain herniating through the operative site. Remington Woodward MD FACR Infusion Non-thrombolysis 10/14/16 1103 Signed Impressions: Service Date/Time: Friday, October 14, 2016 10:21 - CONCLUSION: 1. Uncomplicated infusion for spasmolysis Harvey Morejon MD Neck CTA 10/07/16 0000 Signed Impressions: Service Date/Time: Friday, October 07, 2016 15:03 - CONCLUSION: 1. Mild carotid bulb atherosclerotic calcification bilaterally. However, no significant stenosis is present in either internal carotid artery. 2. Paranasal sinus mucoperiosteal thickening. 3. Please refer to brain CTA report for description of the intracranial findings. Yosvany Ramirez MD Head CTA 10/07/16 0000 Signed Impressions: Service Date/Time: Friday, October 07, 2016 15:03 - CONCLUSION: 1. 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 2. Large left subdural hematoma measuring 1.3 cm in depth with a significant, 1.6 cm left to right subfalcine shift. Joni Shelton MD Physical Exam GENERAL: awake and alert, NAD, on T-piece SKIN: Warm and dry. Has dry desquamating rash in bis back. Rash increased in lower trunk HEAD: Incision healing with several areas that have eschar, no redness, craniectomy convex EYES: [place] conjunctiva. No petechia or hemorrhage. No scleral icterus. No injection or drainage. EARS, NOSE AND THROAT: Nose without bleeding or purulent nasal discharge. NGT in place. No sinus tenderness. Slightly dry oral mucosa NECK: Trachea midline. Supple and not tender, no meningeal signs. Trach site ok CARDIOVASCULAR: Regular rate and rhythm. No murmurs, rubs or gallops heard RESPIRATORY: Equal breath sounds shereen. Diffuse rhonchi ABDOMEN: Soft, non-tender, nondistended. Bowel sounds present and normoactive. No guarding. No rebound. No organomegaly. EXTREMITIES: No clubbing, has mild pedal edema. Has dry gangrene LIF and R ring finger. All his toes have dry gangrene. No calf tenderness. Well perfused and warm. NEUROLOGICAL: Awake and alert. Mild facial asymmetry. Weak in all extremities PSYCHIATRIC: Normal affect, calm and cooperative. LINE: PIV with no evidence of infection : Maldonado in place, urine looks ok Assessment & Plan Remarks IMPRESSION Persistent fevers since 11/02, WBC has improved - no new infection found - ?drug - CXR stable, new HCAP - UA 11/02 ok, has condom cath - no lines - has rash, ?fever due to Abx, ?Dilantin 2 BC with 2 different Coag Neg Staph, ?real, no lines now - last line removed 10/30 - ?contaminant S/P coiling aneurysm S/P craniectomy, decompression, evacuation of SDH Respiratory failure, S/P trach, on T-piece Rash likely drug eruption, ?Abx - B-lactam, ?Dilantin LV dysfunction RECOMMENDATION Stop Azactam Stop Diflucan Levaquin x 7 days Short course of steroids Follow temps Monitor skin/rash Monitor progress D/W Mitra Sears MD Nov 08, 2016 13:06
[2016-11-08] MEDS: MELATONIN 5 MG TAB PO SCH (20:58)
[2016-11-09] VITALS (14 sets, daily range): BP systolic 108–122; BP diastolic 71–76; PULSE 78–102; RESP 19–24; TEMP 97.9–99.3; O2SAT 99–100
[2016-11-09] MEDS: DILTIAZEM HCL 90 MG TAB PO SCH ×5 (00:46→23:50)
[2016-11-09] MEDS: CHLORHEXIDINE GLUCONATE 2 % 1 PACK (2 CLOTHS) TOP SCH (04:00)
[2016-11-09 05:12] LABS: BICARBONATE 28.2 MEQ/L (21.0-32.0); POTASSIUM 4.1 MEQ/L (3.5-5.1)
[2016-11-09] MEDS: HEPARIN SODIUM - SQ 10,000 UNITS/ML VIAL SQ SCH ×3 (05:32→21:09)
[2016-11-09] MEDS: CHLORHEXIDINE 0.12% (ORAL KIT) 15 ML CUP MT SCH ×2 (08:00→20:00)
[2016-11-09] MEDS: SODIUM CHLORIDE 0.9% FLUSH 10 ML FLUSH IV FLUSH SCH ×2 (08:35→21:09)
[2016-11-09] MEDS: ARTIFICIAL TEARS OPTH SOLN 15 ML BTL EACH EYE SCH ×3 (08:35→16:57)
[2016-11-09] MEDS: BENEPROTEIN POWDER 1 PACK G-TUBE SCH ×3 (08:35→16:57)
[2016-11-09] MEDS: LACTULOSE SYRUP 20 GM/30 ML CUP OG-TUBE SCH ×4 (09:10→21:08)
[2016-11-09] MEDS: levETIRAcetam 500 MG/5 ML UDC NG SCH ×2 (09:10→21:08)
[2016-11-09] MEDS: FLUCONAZOLE 100 MG TAB PO SCH (09:11)
[2016-11-09] MEDS: LANSOPRAZOLE SOLUTAB 30 MG TAB NG SCH (09:11)
[2016-11-09] MEDS: predniSONE 20 MG TAB PO SCH ×2 (09:11→21:08)
[2016-11-09] MEDS: LACTOBACILLUS ACIDOPHILUS TAB PO SCH ×3 (09:11→16:57)
[2016-11-09] MEDS: FUROSEMIDE 40 MG/4 ML VIAL IV PUSH SCH (09:11)
[2016-11-09] MEDS: LEVOFLOXACIN 750 MG TAB PO SCH (09:11)
--- NOTE | 2016-11-09 09:40 | HHI.IDPN ---
Subjective Subjective Remarks Patient is a 56-year-old male, initially admitted at [facility] after he developed acute onset of left-sided weakness and numbness. In [facility] emergency room his mental status deteriorated, and he required intubation. CT of the head showed subarachnoid bleed. He was transferred to [facility] for neurosurgical evaluation and treatment. Patient underwent angiogram and coiling of his aneurysm. He also underwent emergency surgery and had left frontal temporal parietal decompressive craniectomy, duraplasty, and evacuation of a subdural hematoma. He had a ezio hole and the ventriculostomy placement. His hospitalization was complicated by significant vasospasm of his cerebral arteries, and he had multiple angiogram and treatment of the vasospasm. He also had problem with significant LV dysfunction in both volume overload. His had hyponatremia that has been treated and corrected. He initially started having fevers and some clinical deterioration as far as infection around the first week of October. He had a sputum culture that had pneumococcus, beta- hemolytic strep and Haemophilus. He had one out of 2 blood culture that had anaerobic gram-negative cocci. He was on antibiotics up until October 23. Patient also required significant amount of pressors to maintain an adequate blood pressure to ensure cerebral perfusion. 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 Patient eventually underwent tracheostomy for his continued respiratory requirement, and had this procedure done November 01. Patient currently has been doing quite well and not requiring ventilatory support, and on T piece. Starting November 02 he started having fevers again as well as increased WBC. Repeat cultures at that time grew 2 blood cultures that had coag-negative staph. His central lines have been removed. Patient also has had liquid stool, but C. difficile is negative. Urinalysis done was unremarkable. Patient was started back on antibiotics on November 02 and has been on cefepime and IV vancomycin. He continues to have fevers. His WBC has been down to normal. His last chest x- ray yesterday showing stable infiltrates. He has no central line. He has a Maldonado catheter in place. He has an NG tube and gets tube feedings. Infectious disease consultation has been requested to evaluate the patient for persistent fevers. Notes reviewed D/W RN Afebrile >24 hours On T-piece Has loose stool BC negative WBC normal UA ok Sputum normal slim Antibiotics Levaquin Diflucan Lines PIV Past Medical History Hypertension Past Surgical History Status post trach Status post craniectomy for evacuation of subdural hematoma Allergies: Coded Allergies: No Known Allergies (Unverified , 05/06/16) Objective . Vital Signs Date Time Temp Pulse Resp B/P (MAP) Pulse Ox O2 Delivery O2 Flow Rate FiO2 11/09/16 06:00 84 11/09/16 04:00 101 11/09/16 04:00 98.8 101 24 114/72 (86) 100 11/09/16 02:31 99 T-piece 28 11/09/16 02:00 87 11/09/16 00:00 86 11/09/16 00:00 99.3 86 19 111/71 (84) 100 11/08/16 22:00 93 11/08/16 20:00 98.9 94 24 116/66 (83) 100 11/08/16 20:00 94 11/08/16 18:01 103 11/08/16 16:00 99.4 97 25 117/81 (93) 100 11/08/16 16:00 97 11/08/16 14:00 95 11/08/16 12:00 94 11/08/16 12:00 98.8 94 21 119/76 (90) 100 11/08/16 10:00 86 . Laboratory Tests Test 11/08/16 04:51 White Blood Count 5.0 TH/MM3 Red Blood Count 3.10 MIL/MM3 Hemoglobin 10.0 GM/DL Hematocrit 29.9 % Mean Corpuscular Volume 96.7 FL Mean Corpuscular Hemoglobin 32.2 PG Mean Corpuscular Hemoglobin Concent 33.3 % Red Cell Distribution Width 13.8 % Platelet Count 185 TH/MM3 Mean Platelet Volume 9.7 FL Neutrophils (%) (Auto) 59.8 % Lymphocytes (%) (Auto) 18.4 % Monocytes (%) (Auto) 9.8 % Eosinophils (%) (Auto) 11.0 % Basophils (%) (Auto) 1.0 % Neutrophils # (Auto) 3.0 TH/MM3 Lymphocytes # (Auto) 0.9 TH/MM3 Monocytes # (Auto) 0.5 TH/MM3 Eosinophils # (Auto) 0.5 TH/MM3 Basophils # (Auto) 0.0 TH/MM3 CBC Comment DIFF FINAL Differential Comment Laboratory Tests Test 11/08/16 04:51 11/09/16 04:18 Blood Urea Nitrogen 19 MG/DL 23 MG/DL Creatinine 0.52 MG/DL 0.57 MG/DL Random Glucose 101 MG/DL 122 MG/DL Calcium Level 8.0 MG/DL 8.4 MG/DL Sodium Level 142 MEQ/L 142 MEQ/L Potassium Level 3.8 MEQ/L 4.1 MEQ/L Chloride Level 108 MEQ/L 108 MEQ/L Carbon Dioxide Level 28.4 MEQ/L 28.2 MEQ/L Anion Gap 6 MEQ/L 6 MEQ/L Estimat Glomerular Filtration Rate 166 ML/MIN 149 ML/MIN Microbiology Date/Time Source Procedure Growth Status 11/06/16 20:48 Blood Peripheral Aerobic Blood Culture - Preliminary NO GROWTH IN 2 DAYS Resulted 11/06/16 20:48 Blood Peripheral Anaerobic Blood Culture - Preliminary NO GROWTH IN 2 DAYS Resulted 11/06/16 20:41 Blood Peripheral Aerobic Blood Culture - Preliminary NO GROWTH IN 2 DAYS Resulted 11/06/16 20:41 Blood Peripheral Anaerobic Blood Culture - Preliminary NO GROWTH IN 2 DAYS Resulted 11/06/16 13:00 Sputum Endotracheal Gram Stain - Final Complete 11/06/16 13:00 Sputum Endotracheal Sputum Culture - Final HEAVY GROWTH NORMAL RESPIRATORY SLIM Complete 11/06/16 13:00 Urine Random Urine Urine Culture - Final <10,000 CFU/ML GRAM POSITIVE SLIM Complete Imaging Chest X-Ray 11/05/16 06 Signed Impressions: Service Date/Time: Saturday, November 05, 2016 04:39 - CONCLUSION: Persistent non-consolidative infiltrates in the medial lower lungs. Santos Vazquez MD Abdomen X-Ray 10/21/16599 Signed Impressions: Service Date/Time: Friday, October 21, 2016 03:50 - CONCLUSION: 1. NGT in the stomach. 2. General paucity of small bowel gas. This finding is nonspecific and occasionally may reflect fluid-filled loops of bowel. Otherwise, no dilated bowel loops to suggest significant ileus or obstruction. Kev Vergara MD Transcranial Doppler Study Complete 10/20/16 06 Signed Impressions: Service Date/Time: October 07:54 - CONCLUSION: Slight interval elevation of flow velocity measurements and ratio on the left Yosvany Polk MD Liver Ultrasound 10/19/16 0000 Signed Impressions: Service Date/Time: Wednesday, October 19, 2016 11:20 - CONCLUSION: 1. Sludge filled gallbladder with thickened wall. 2. Moderate size bilateral pleural effusions and mild upper abdominal ascites. Santos Vazquez MD Cerebral Arteriogram 10/19/16 0000 Signed Impressions: Service Date/Time: Wednesday, October 19, 2016 12:47 - CONCLUSION: Uncomplicated cerebral arteriography with spasmolytic therapy as described in detail above. Yosvany Polk MD Head CT 10/17/16 0000 Signed Impressions: Service Date/Time: Monday, October 17, 2016 15:06 - CONCLUSION: Ventricles are slightly larger without ventriculostomy. Edema in the left hemisphere the brain herniating through the operative site. Remington Woodward MD FACR Infusion Non-thrombolysis 10/14/16 1103 Signed Impressions: Service Date/Time: Friday, October 14, 2016 10:21 - CONCLUSION: 1. Uncomplicated infusion for spasmolysis Harvey Morejon MD Neck CTA 10/07/16 0000 Signed Impressions: Service Date/Time: Friday, October 07, 2016 15:03 - CONCLUSION: 1. Mild carotid bulb atherosclerotic calcification bilaterally. However, no significant stenosis is present in either internal carotid artery. 2. Paranasal sinus mucoperiosteal thickening. 3. Please refer to brain CTA report for description of the intracranial findings. Yosvany Ramirez MD Head CTA 10/07/16 0000 Signed Impressions: Service Date/Time: Friday, October 07, 2016 15:03 - CONCLUSION: 1. 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 2. Large left subdural hematoma measuring 1.3 cm in depth with a significant, 1.6 cm left to right subfalcine shift. Joni Shelton MD Physical Exam GENERAL: awake and alert, NAD, on T-piece SKIN: Warm and dry. Rash stable HEAD: Incision healing with several areas that have eschar, no drainage, no redness EYES: [place] conjunctiva. No petechia or hemorrhage. No scleral icterus. No injection or drainage. EARS, NOSE AND THROAT: Nose without bleeding or purulent nasal discharge. NGT in place. No sinus tenderness. Slightly dry oral mucosa NECK: Trachea midline. Supple and not tender, no meningeal signs. Trach site ok CARDIOVASCULAR: Regular rate and rhythm. No murmurs, rubs or gallops heard RESPIRATORY: Equal breath sounds shereen. Diffuse rhonchi ABDOMEN: Soft, non-tender, nondistended. Bowel sounds present and normoactive. No guarding. No rebound. No organomegaly. EXTREMITIES: No clubbing, has mild pedal edema. Has dry gangrene LIF and R ring finger. All his toes have dry gangrene. No calf tenderness. Well perfused and warm. NEUROLOGICAL: Awake and alert. Mild facial asymmetry. Weak in all extremities PSYCHIATRIC: Normal affect, calm and cooperative. LINE: PIV with no evidence of infection : Maldonado in place, urine looks ok Assessment & Plan Remarks IMPRESSION Persistent fevers since 11/02, WBC has improved - temps better - ?drug - UA 11/02 ok, has condom cath - no lines - diarrhea, C diff negative - has rash, ?fever due to Abx, ?Dilantin 2 BC with 2 different Coag Neg Staph, ?real, no lines now - last line removed 10/30 - ?contaminant S/P coiling aneurysm S/P craniectomy, decompression, evacuation of SDH Respiratory failure, S/P trach, on T-piece Rash likely drug eruption, ?Abx - B-lactam, ?Dilantin LV dysfunction RECOMMENDATION Levaquin x 7 days Also on Diflucan - will D/C if temps ok getting short course of steroids Follow temps Monitor skin/rash Monitor progress OK for neurosurgery procedure D/W Mitra Sears MD Nov 09, 2016 09:40
--- NOTE | 2016-11-09 10:22 | HHI.CCPN ---
Subjective Remarks/Hospital Course 10/07: 56-year-old male presents with intracranial bleed. Patient was transferred from [facility] at [facility]. As per the paramedics and the nurse who assisted the patient said that patient earlier this morning was coming down the stairs when he started feeling some left-sided weakness and numbness. He called 911 and by the time EMS arrived they detected some deficit and called a stroke alert. Patient was taken to [facility]. When patient arrived his mental status started to decline and he was intubated emergently in the ER. A CAT scan of the head showed subarachnoid and subdural bleed. He was taking emergently to an angio suite for coiling of the aneurysm and later on to OR for subdural hematoma evacuation. 10/08: Remains sedated, orally intubated on mechanical ventilation. Arouses off sedation and following commands with both upper extremities earlier. Ventriculostomy in place. ICP 7, CPP mid 80s. 10/09: Remains sedated, orally intubated on mechanical ventilation. Arouses off sedation and follows commands with both upper extremities. Ventriculostomy in place. 10/10: Remains sedated, orally intubated on mechanical ventilation. Arouses off sedation and follows commands and both upper extremities. Ventriculostomy in place. ICP 5. Failed C Pap trial yesterday. 10/11: Extubated on 10/10, tolerating well. Awake and alert. Appears confused, moving all 4 extremities. Ventriculostomy discontinued today by neurosurgery 10/13: Patient has developed severe vasospasm at the left MCA territory on TCD's that was treated with IV route verapamil 10/14: patient extubated overnight. was originally following commands and neuro intact. TCDs this morning with increase LIs over yesterday, particularly Left MCA territory. On my evaluation early this morning, patient was aphasic, not moving the right side of his body, not following commands. SBP 140s at that time. net 2L negative/24h and uop almost 1L/hr at the time. I immediately bolused with 2L NS iv, placed arterial and central lines, started phenylephrine , increased SBP to goal 200 - 220 mmHg. called interventional neuroradiology and accompanied patient down personally to IR for IA verapamil again. I remained with the patient managing his hemodynamics down in IR and providing anxiolysis IV. I accompanied patient back up to [facility] where patient again was neuro intact and following commands. Sodium downtrending to 135 and urine studies and serum osms suggestive of urine sodium losses and high uop. added Florinef to mitigate sodium losses, and increased mivf to 500cc/hr to maintain euvolemia. later in the day patient decompensated requiring intubation for hyoxemia, cxr suggestive of pulmonary edema. 2d echo with evidence of EF 40%, septal hypokinesis, moderate MR. On levo, vaso, phenylephrine. difficult to get to goal SBP 200 mmHg, likely due to myocardial dysfunction. decreased goal to 180 - 200 mmHg to balance cardiac vs. neurologic goals. 10/15 Patient was discussed with Dr. Sullivan at shift change. Isuprel was initiated in effort to improve cardiac output as dobutamine not available and concerned with use of milrinone given long half life. Systolic blood pressure was relatively stable with perhaps some modest improvement from 170s to 180s for several hours after initiation. Notified when patient became abruptly hypotensive despite vasopressin, levophed 20 mcg/min, Greyson-Synephrine 300 mcg/m. He was also hypoxemic with sats in 80s despite PCV with PEEP 8 and FiO2 100%, respiratory rate in the 30s. He had decreased breath sounds bilaterally and was concerned for air trapping so removed from mechanical ventilation and bagged without improvement. Placed patient back on mechanical ventilation and provide recruitment maneuvers and increased PEEP to 12 which resulted in improvement of sats to 88% to 92%. Ordered Flolan. Discontinued isuprel and initiated epinephrine. R radial art line would not draw blood . Performed u/s guided femoral artery stick to confirm hypoxemia on ABG given poor wave form on pulse ox and PaO2 was 58. Placed new L radial art line and this resulted in ~ 30 point increase in SBP relative to prior line but patient ultimately on vasopressin, levophed 30 micrograms per minute, Greyson-Synephrine 300 micrograms per minute, epinephrine 12 mcg/min and unable to maintain target pressure (SBP in 150s). Given calcium chloride. patient with shaking movements all extremities, pupils 2mm and sluggish, no eye deviation. Rigors seemed most likely but unable to emergently rule out seizures so loaded with fosphenytoin to avoid secondary injury from seizure activity. WBC increasing and concern for HCAP so pancultured and placed on cefepime, vancomycin, azithromycin. Hydrocortisone 100 mg IV every 8 hours initiated due to concern for septic shock in a patient who has been refractory to all other above measures. Patient is to hemodynamically unstable and hypoxic for transport for neurologic imaging. Urine output has declined to 180-200 ML's per hour. Back off maintenance IV fluids to 200 ML's per hour. Bedside echo demonstrates decreased LV function with normal RV contractility and collapsible IVC suggesting ongoing maintenance fluid administration is appropriate. 10/15 additional visit: continued to deteriorate throughout the day. Seen multiple times. hypoxic on 100% fio2, flolan. required nimbex drip to maintain. repeat bedside critical care ultrasound still demonstrates severe LV dysfunction , decompressed RV, IVC more dilated than previous echo overnight, however still with respiratory variation. femoral arterial line placed with better waveform and higher pressure (likely SVR too high to allow accurate measurement of radial pressure). Pulse contour analysis without stroke volume variation, CI 3.6. SV 52mL. trialed additional albumin without improvement in hemodynamics. uop slower than before, but still significant salt wasting in the urine- sodium dropped to 125 from 132 despite already on 3% nacl infusion and aggressive sodium replacements. forced to give 23% nacl and salt tabs. declining clinically despite maximal therapy. 10/16: continues to be maximally critically ill. LV dysfunction persists. starting to get volume overloaded, but given concern for ongoing cerebral vasospasm, unable to actively diurese patient. sodium wasting persists, but uop downtrending slightly. very hypokalemic today, likely due to steroids. remains intubated, sedated, paralyzed, on flolan. CXR today appears worse with worsening airspace disease. Lactate remains slightly elevated, confirming persistent shock. 10/17: Lung infiltrates dense bilaterally, reflected in shunting and problems with oxygenation. Developed vasospasm on TCDs and required angiogram and intra- arterial verapamil again today. 10/18: SBP 160 - 170 range. FiO2 0.55. BNP > 5000. Not tolerating attempts at maintaining higher BP due to worsening heart failure. Several episodes of vasospasm. Watch daily TCDs closely. Sputum no growth. 10/19: Tmax 99.8. Currently 99. Remains on 4 vasopressors and epoprostenol 10/20: Yesterday. Returned IR for intra-arterial calcium channel jose infusion for vasospasm. Transcranial Dopplers today Still pending. Remains on significant vasopressor support. 10/21: Good response to diuresis, check BNP. TCDs pending. Heart failure remains a major problem. 10/22: CVP 21 - 22, finger tips blue, digits pale white despite high dose milrinone dilation. Greyson and vaso much reduced. Will try diltiazem gtt for digital ischemia. Urine remains > 200/hr and proximal limbs are well perfused. This digital ischemia appears to be a local phenomenon ala Raynaud's. New subcutaneous emphysema right anterior chest wall. 10/23: Old CVL removed. Fingertips remain marginal, some necrotic despite diltiazem and milrinone treatment for digital ischemia. Cardiac output > 7 liters/min and urine copious, confirming good perfusion pressure and flow. This continues to be a local phenomenon of the digits ala Raynaud's. We are trying to wean vasopressors off but are required to maintaining a cerebral perfusion pressure suitable for the treatment of aneurysmal subarachnoid bleed. Frankly, the importance of brain function eclipses fingertips. 10/24: Afebrile. Well perfused except for index finger left hand, few tips fingers right. Arms and hands warmer with resolving circumferential edema. Diltiazem and milrinone gtt continue. Greyson to 10 mics/min. 10/25: Digits are warm and well perfused except left index and right 4th fingertips; demarcated and not viable. Dry. Diltiazem and milrinone infusions continue to help reverse digital ischemia. 10/26: Forced diuresis continues and BP remains nicely elevated. Hands and digits warm aside from left index and right 4th fingertips which have demarcated. 10/27: Good response to diuretics. Perfusion pressure and documented flow excellent. Continue to wean vent. 10/28: Start SBTs. Fluid balance back toward normal. 10/29: Tolerating SBTs. Lowering sedation. Edema resolving. 10/30: Tolerating tube feeds, will taper off TPN and remove central line. Continue diuretics. 10/31: net -3L over 24h. mental status at baseline. tolerating CPAP, but does not have the mental status to protect airway. will likely need trach/peg. placement will be a problem due to lack of funding. 11/01: no changes or improvements. discussed with yesterday and she "does not want any more setbacks" and would prefer trach versus trial of extubation. I agree with her assessment. plan for trach today. placement is still a significant problem. net -2L/24h. 11/02: wbc uptrending, febrile. antonio cultured, started empiric abx today. failed SBT overnight and placed back on rate. 11/03: Tolerating CPAP today, following commands. Low-grade fever cultures pending. WBC count normal today 11/04: Remains on TPs since yesterday. Neuro exam remains stable. Follows commands weakly. Na 152 11/05: Remains off vent for 48 hours now. Sitting up in stretcher chair today. Na improved to 149. remains weak but improving SUBJECTIVE 11/06: Continues to tolerate TPs well. Neuro exam unchanged. Sodium 148 today. Continues to spike intermittent fever Tmax 102.7. 11/07: Continued fevers, no leukocytosis. 11/08: Stable for replacement of bone flap. 11/09: Getting a bit excessively diuresed, will decrease lasix and convert to PO. Fingertips and toes demarcating as expected. No immediate action required except for continued diltiazem therapy. Clearly a Raynaud's type digital ischemia as peripheral perfusion and urine output indicated excellent peripheral perfusion. Objective Vital Signs Date Time Temp Pulse Resp B/P (MAP) Pulse Ox O2 Delivery O2 Flow Rate FiO2 11/09/16 06:00 84 11/09/16 04:00 98.8 24 114/72 (86) 100 11/09/16 02:31 T-piece 28 11/08/16 08:51 6.00 Intake and Output 11/09/16 11/09/16 11/10/16 08:00 16:00 00:00 Intake Total 933 ml Output Total 1175 ml Balance -242 ml Result Diagram: 11/08/16 0451 11/09/16 0418 Other Results Microbiology Date/Time Source Procedure Growth Status 11/06/16 13:00 Sputum Endotracheal Gram Stain - Final Complete 11/06/16 13:00 Sputum Endotracheal Sputum Culture - Final HEAVY GROWTH NORMAL RESPIRATORY YOAN Complete 11/06/16 13:00 Urine Random Urine Urine Culture - Final <10,000 CFU/ML GRAM POSITIVE YOAN Complete Imaging Last Impressions Chest X-Ray 10/20/16 0000 Signed Impressions: Service Date/Time: October 03:47 - CONCLUSION: 1. Stable tubes and lines. 2. Stable bilateral lower lung zone airspace disease. 3. Stable small right pleural effusion. 4. No significant interval change. Kev Vergara MD Transcranial Doppler Study Complete 10/19/16 0600 Signed Impressions: Service Date/Time: Wednesday, October 19, 2016 08:02 - CONCLUSION: Suspect developing right MCA vasospasm Yosvany Polk MD Liver Ultrasound 10/19/16 0000 Signed Impressions: Service Date/Time: Wednesday, October 19, 2016 11:20 - CONCLUSION: 1. Sludge filled gallbladder with thickened wall. 2. Moderate size bilateral pleural effusions and mild upper abdominal ascites. Santos Vazquez MD Head CT 10/17/16 0000 Signed Impressions: Service Date/Time: Monday, October 17, 2016 15:06 - CONCLUSION: Ventricles are slightly larger without ventriculostomy. Edema in the left hemisphere the brain herniating through the operative site. Remington Woodward MD FACR Cerebral Arteriogram 10/17/16 0000 Signed Impressions: Service Date/Time: Monday, October 17, 2016 00:00 - CONCLUSION: 1. Uncompensated spasmolysis of the left middle cerebral artery Harvey Morejon MD Infusion Non-thrombolysis 10/14/16 1103 Signed Impressions: Service Date/Time: Friday, October 14, 2016 10:21 - CONCLUSION: 1. Uncomplicated infusion for spasmolysis Harvey Morejon MD Neck CTA 10/07/16 0000 Signed Impressions: Service Date/Time: Friday, October 07, 2016 15:03 - CONCLUSION: 1. Mild carotid bulb atherosclerotic calcification bilaterally. However, no significant stenosis is present in either internal carotid artery. 2. Paranasal sinus mucoperiosteal thickening. 3. Please refer to brain CTA report for description of the intracranial findings. Yosvany Ramirez MD Head CTA 10/07/16 0000 Signed Impressions: Service Date/Time: Friday, October 07, 2016 15:03 - CONCLUSION: 1. 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 2. Large left subdural hematoma measuring 1.3 cm in depth with a significant, 1.6 cm left to right subfalcine shift. Joni Shelton MD Objective Remarks GENERAL: 56-year-old male, trached. Lying in bed HEAD: Status post left craniectomy. Left flap sunken, Incision healing well EYES: About 3 mm bilaterally and reactive NECK: Trachea midline. 8.0 Shiley cuffed trach CARDIOVASCULAR: S1-S2 normal no murmurs RESPIRATORY: Diminished breath sounds bilateral lower lobes. GASTROINTESTINAL: Abdomen soft, non-tender, nondistended. MUSCULOSKELETAL: Ischemic changes worst to left index finger tip and right 4th fingertip, and majority of R toes. Demarcating, dry, should autoamputate. NEURO EXAM: Opens eyes follows command, right UE weaker than left, follows commands x4. Attempts to mouth words Procedures 10/13 Four-vessel cerebral angiography with verapamil treatment of vasospasm A/P Assessment and Plan Neuro/Psych Status post left frontotemporal parietal craniectomy 10/08 for evacuation subdural hematoma/duraplasty Left subdural hematoma - 1.3 cm with 1.6 shift left to right Subarachnoid hemorrhage Alvarado and Rodriguez 5, Carroll grade 4 - left P-comm status post 4 coiling 10/08 - Nimodipine completed 21 days. Initiated 10/13. - Levetiracetam 500 mg per tube twice a day with phenytoin 100mg per tube q8h. Fever persisting- DC phenytoin, observe clinically, check EEG - 10/13 and 10/14 and 10/17) 10/19 left MCA territory vasospasm, status post successful verapamil treatment by IR with 20 mg verapamil - SBP goal now reduced to <140. - 10/17 CT brain - less hemisphere edema with herniation through left craniotomy site - Dr. Perry/neurosurgery. Plan to replace bone flap- not cleared until bacteremia fever subsides Respiratory: Acute hypoxic Respiratory failure-ARDS- resolved Noncardiogenic/neurogenic pulmonary edema -- Nebs, HOB at 30 degrees. Remains on TP last 72 hours -- Albuterol/Atrovent every 6 hours with albuterol aerosols every 2 hours for Dyspnea -- continue TP 24/7 as tolerated. Up to stretcher chair daily -- s/p Trach Dr. Sullivan/Dr. Collazo 11/01 Cardiovascular: Severe shock - septic and cardiogenic- resolved. Severe LV dysfunction secondary to SAH - persistent. Elevated troponin- secondary to SAH, unlikely to be ACS. - resolved. Pulmonary hypertension Continue diuresis. Free water replacement with half normal saline for 24 hours completed 11/05 Na improved, free water through NG tube Echocardiogram 10/14/16 revealed EF 40-45%. Septal hypokinesis. Moderate MR. Severe pulmonary hypertension with pulmonary artery pressures estimated 61 mmHg Repeat Echo to rule out veg- has underlying MR Renal: Cerebral Salt Wasting/SIADH-resolved now hypernatremic Strict I/Os. See FEN below. Creatinine currently within normal limits FEN/GI: Severe hyponatremia-resolved now hypernatremic Hypokalemia Elevated transaminases Hyperammonemia - DCd sodium chloride 3gm po TID 11/04 - Half-normal saline for 24 hours completed; continue free water 250 mL 4 times a day - ICU electrolyte protocol. aggressively replace potassium losses. - Lansoprazole 30 mg by tube daily for GI prophylaxis - Docusate sodium 100 mg twice a day, senna liquid 8.6 mg twice a day and polyethylene glycol 3350 17 g twice a day for bowel regimen - Lactulose 30 cc QID. ammonia 46 on 10/31, repeat tomorrow - NPO per speech, Continue NGT feeding Heme/ID: Septic Shock- resolved. Possible HCAP New Fever, leukocytosis, staph epi bacteremia - limited Echo to evaluate vegetation. DC Dilantin. Consult ID, need clearance for bone flap replacement also - Digital Ischemia with necrosis, conservative management - s/p Diltiazem and milrinone infusions - Digits have demarcated. cardizem PO (for digital ischemia, Raynaud's) Pertinent cultures 10/15 - blood cultures - 1 out of 4 anaerobic gram-negative cocci possibly Veillonella 10/15 - sputum - beta strep not A, strep species 10/19 cultures NG 10/21/ bottles blood cultures coag negative staph. Culture 11/01. coag neg stah 03/19 bottles f/u 11/01 blood, sputum, urine cultures. Continue vancomycin, cefepime, flagyl. DCd Flagyl 11/04 C diff negative. ABX adjustments by infectious diseases Endocrine: Presumed Adrenal Insufficiency Discontinued fludrocortisone 10/18. Monitor sodium 6 hours. Sliding-scale insulin with NovoLog -Accu-Cheks every 4 hours to maintain euglycemia d/cd Levemir bid. Taper off cortisone -> done Prophylaxis: GI Prophylaxis - lansoprazole DVT Prophylaxis-- SCDs, heparin subcutaneous Lines: - 10/14 right SC TLC, removed 10/22 - 10/14 right radial art line, removed 10/14 - 10/15 left radial art line, removed 10/16 - 10/15 left femoral art line - 10/22 left groin triple lumen placed, d/c 10/30 - d/c ike. Overall impression: No change. The patient's digital ischemia developed when he had a cardiac output over 8.0 liters/min, CVP was over 20 mm Hg, and urine over 75 ml/hr for many days. BNP was elevated at 777. His hands and feet were warm but the fingers and toes became cold, white, nearly cadaveric. Neosynephrine was only vasopressor and it was at 30 units/min only. We stopped it immediately and started milrinone and cardizem iv infusions. Most fingers and toes responded well to the vascular dilators but a few digits demarcated and became necrotic. Anticoagulation was not an option in face of recent aneurysm rupture and gastritis. Patients with this degree of digital ischemia (severe Raynaud's) usually have an underlying illness such as malignancy, mixed connective tissue disorder, collagen vascular disease, rheumatoid disease, etc. This workup can progress after he has cleared exogenous steroids which were just stopped. He's in a pretty revved up inflammatory state now and the lab values will be altered by it. Overall impression: Stable for replacement of bone flap. Rodriguez Collazo MD Nov 09, 2016 10:22
[2016-11-09] MEDS: FUROSEMIDE 40 MG/5 ML UNIT DOSE CUP NG SCH (10:30)
[2016-11-09] MEDS: INSULIN ASPART SUPPLEMENTAL SCALE SQ SCH ×3 (12:00→23:48)
[2016-11-09] MEDS: oxyCODONE HCL ORAL CONC 20 MG/ML SYRINGE PO PRN ×2 (16:04→21:09)
[2016-11-09] MEDS: MELATONIN 5 MG TAB PO SCH (21:08)
[2016-11-10] VITALS (12 sets, daily range): BP systolic 99–137; BP diastolic 63–76; PULSE 78–109; RESP 16–22; TEMP 97.7–98.8; O2SAT 99–100
[2016-11-10] MEDS: CHLORHEXIDINE GLUCONATE 2 % 1 PACK (2 CLOTHS) TOP SCH (03:52)
[2016-11-10] MEDS: DILTIAZEM HCL 90 MG TAB PO SCH ×3 (04:22→17:37)
[2016-11-10] MEDS: HEPARIN SODIUM - SQ 10,000 UNITS/ML VIAL SQ SCH ×3 (04:22→20:59)
[2016-11-10] MEDS: ARTIFICIAL TEARS OPTH SOLN 15 ML BTL EACH EYE SCH ×3 (07:42→17:38)
[2016-11-10] MEDS: BENEPROTEIN POWDER 1 PACK G-TUBE SCH ×3 (07:42→17:38)
[2016-11-10] MEDS: SODIUM CHLORIDE 0.9% FLUSH 10 ML FLUSH IV FLUSH SCH ×2 (07:42→20:59)
[2016-11-10] MEDS: CHLORHEXIDINE 0.12% (ORAL KIT) 15 ML CUP MT SCH ×2 (07:42→20:00)
[2016-11-10] MEDS: LACTULOSE SYRUP 20 GM/30 ML CUP OG-TUBE SCH ×4 (08:21→20:59)
[2016-11-10] MEDS: LACTOBACILLUS ACIDOPHILUS TAB PO SCH ×3 (08:22→17:37)
[2016-11-10] MEDS: FLUCONAZOLE 100 MG TAB PO SCH (08:22)
[2016-11-10] MEDS: LEVOFLOXACIN 750 MG TAB PO SCH (08:22)
[2016-11-10] MEDS: levETIRAcetam 500 MG/5 ML UDC NG SCH ×2 (08:23→20:58)
[2016-11-10] MEDS: LANSOPRAZOLE SOLUTAB 30 MG TAB NG SCH (08:23)
[2016-11-10] MEDS: FUROSEMIDE 40 MG/5 ML UNIT DOSE CUP NG SCH (08:23)
[2016-11-10] MEDS: oxyCODONE HCL ORAL CONC 20 MG/ML SYRINGE PO PRN ×2 (10:35→16:03)
[2016-11-10] MEDS: INSULIN ASPART SUPPLEMENTAL SCALE SQ SCH (12:00)
[2016-11-10] MEDS: MELATONIN 5 MG TAB PO SCH (20:58)
[2016-11-11] VITALS (14 sets, daily range): BP systolic 111–134; BP diastolic 69–80; PULSE 86–102; RESP 18–24; TEMP 98.6–100.6; O2SAT 100
[2016-11-11] MEDS: oxyCODONE HCL ORAL CONC 20 MG/ML SYRINGE PO PRN (02:28)
[2016-11-11] MEDS: DILTIAZEM HCL 90 MG TAB PO SCH ×4 (02:28→18:50)
[2016-11-11] MEDS: CHLORHEXIDINE GLUCONATE 2 % 1 PACK (2 CLOTHS) TOP SCH (04:00)
[2016-11-11] MEDS: HEPARIN SODIUM - SQ 10,000 UNITS/ML VIAL SQ SCH ×3 (06:25→20:44)
[2016-11-11] MEDS: ARTIFICIAL TEARS OPTH SOLN 15 ML BTL EACH EYE SCH ×3 (08:53→18:00)
[2016-11-11] MEDS: CHLORHEXIDINE 0.12% (ORAL KIT) 15 ML CUP MT SCH ×2 (08:53→20:00)
[2016-11-11] MEDS: SODIUM CHLORIDE 0.9% FLUSH 10 ML FLUSH IV FLUSH SCH ×2 (08:53→20:44)
[2016-11-11] MEDS: BENEPROTEIN POWDER 1 PACK G-TUBE SCH ×3 (08:53→18:50)
[2016-11-11] MEDS: FUROSEMIDE 40 MG/5 ML UNIT DOSE CUP NG SCH (08:57)
[2016-11-11] MEDS: levETIRAcetam 500 MG/5 ML UDC NG SCH ×2 (08:57→20:44)
[2016-11-11] MEDS: LACTULOSE SYRUP 20 GM/30 ML CUP OG-TUBE SCH ×4 (08:58→20:44)
[2016-11-11] MEDS: LACTOBACILLUS ACIDOPHILUS TAB PO SCH ×3 (08:58→18:51)
[2016-11-11] MEDS: FLUCONAZOLE 100 MG TAB PO SCH (08:59)
[2016-11-11] MEDS: LANSOPRAZOLE SOLUTAB 30 MG TAB NG SCH (08:59)
[2016-11-11] MEDS: LEVOFLOXACIN 750 MG TAB PO SCH (09:01)
--- NOTE | 2016-11-11 11:02 | HHI.CCPN ---
Subjective Remarks/Hospital Course Note for 11/10/16: 10/07: 56-year-old male presents with intracranial bleed. Patient was transferred from [facility] at [facility]. As per the paramedics and the nurse who assisted the patient said that patient earlier this morning was coming down the stairs when he started feeling some left-sided weakness and numbness. He called 911 and by the time EMS arrived they detected some deficit and called a stroke alert. Patient was taken to [facility]. When patient arrived his mental status started to decline and he was intubated emergently in the ER. A CAT scan of the head showed subarachnoid and subdural bleed. He was taking emergently to an angio suite for coiling of the aneurysm and later on to OR for subdural hematoma evacuation. 10/08: Remains sedated, orally intubated on mechanical ventilation. Arouses off sedation and following commands with both upper extremities earlier. Ventriculostomy in place. ICP 7, CPP mid 80s. 10/09: Remains sedated, orally intubated on mechanical ventilation. Arouses off sedation and follows commands with both upper extremities. Ventriculostomy in place. 10/10: Remains sedated, orally intubated on mechanical ventilation. Arouses off sedation and follows commands and both upper extremities. Ventriculostomy in place. ICP 5. Failed C Pap trial yesterday. 10/11: Extubated on 10/10, tolerating well. Awake and alert. Appears confused, moving all 4 extremities. Ventriculostomy discontinued today by neurosurgery 10/13: Patient has developed severe vasospasm at the left MCA territory on TCD's that was treated with IV route verapamil 10/14: patient extubated overnight. was originally following commands and neuro intact. TCDs this morning with increase LIs over yesterday, particularly Left MCA territory. On my evaluation early this morning, patient was aphasic, not moving the right side of his body, not following commands. SBP 140s at that time. net 2L negative/24h and uop almost 1L/hr at the time. I immediately bolused with 2L NS iv, placed arterial and central lines, started phenylephrine , increased SBP to goal 200 - 220 mmHg. called interventional neuroradiology and accompanied patient down personally to IR for IA verapamil again. I remained with the patient managing his hemodynamics down in IR and providing anxiolysis IV. I accompanied patient back up to [facility] where patient again was neuro intact and following commands. Sodium downtrending to 135 and urine studies and serum osms suggestive of urine sodium losses and high uop. added Florinef to mitigate sodium losses, and increased mivf to 500cc/hr to maintain euvolemia. later in the day patient decompensated requiring intubation for hyoxemia, cxr suggestive of pulmonary edema. 2d echo with evidence of EF 40%, septal hypokinesis, moderate MR. On levo, vaso, phenylephrine. difficult to get to goal SBP 200 mmHg, likely due to myocardial dysfunction. decreased goal to 180 - 200 mmHg to balance cardiac vs. neurologic goals. 10/15 Patient was discussed with Dr. Sullivan at shift change. Isuprel was initiated in effort to improve cardiac output as dobutamine not available and concerned with use of milrinone given long half life. Systolic blood pressure was relatively stable with perhaps some modest improvement from 170s to 180s for several hours after initiation. Notified when patient became abruptly hypotensive despite vasopressin, levophed 20 mcg/min, Greyson-Synephrine 300 mcg/m. He was also hypoxemic with sats in 80s despite PCV with PEEP 8 and FiO2 100%, respiratory rate in the 30s. He had decreased breath sounds bilaterally and was concerned for air trapping so removed from mechanical ventilation and bagged without improvement. Placed patient back on mechanical ventilation and provide recruitment maneuvers and increased PEEP to 12 which resulted in improvement of sats to 88% to 92%. Ordered Flolan. Discontinued isuprel and initiated epinephrine. R radial art line would not draw blood . Performed u/s guided femoral artery stick to confirm hypoxemia on ABG given poor wave form on pulse ox and PaO2 was 58. Placed new L radial art line and this resulted in ~ 30 point increase in SBP relative to prior line but patient ultimately on vasopressin, levophed 30 micrograms per minute, Greyson-Synephrine 300 micrograms per minute, epinephrine 12 mcg/min and unable to maintain target pressure (SBP in 150s). Given calcium chloride. patient with shaking movements all extremities, pupils 2mm and sluggish, no eye deviation. Rigors seemed most likely but unable to emergently rule out seizures so loaded with fosphenytoin to avoid secondary injury from seizure activity. WBC increasing and concern for HCAP so pancultured and placed on cefepime, vancomycin, azithromycin. Hydrocortisone 100 mg IV every 8 hours initiated due to concern for septic shock in a patient who has been refractory to all other above measures. Patient is to hemodynamically unstable and hypoxic for transport for neurologic imaging. Urine output has declined to 180-200 ML's per hour. Back off maintenance IV fluids to 200 ML's per hour. Bedside echo demonstrates decreased LV function with normal RV contractility and collapsible IVC suggesting ongoing maintenance fluid administration is appropriate. 10/15 additional visit: continued to deteriorate throughout the day. Seen multiple times. hypoxic on 100% fio2, flolan. required nimbex drip to maintain. repeat bedside critical care ultrasound still demonstrates severe LV dysfunction , decompressed RV, IVC more dilated than previous echo overnight, however still with respiratory variation. femoral arterial line placed with better waveform and higher pressure (likely SVR too high to allow accurate measurement of radial pressure). Pulse contour analysis without stroke volume variation, CI 3.6. SV 52mL. trialed additional albumin without improvement in hemodynamics. uop slower than before, but still significant salt wasting in the urine- sodium dropped to 125 from 132 despite already on 3% nacl infusion and aggressive sodium replacements. forced to give 23% nacl and salt tabs. declining clinically despite maximal therapy. 10/16: continues to be maximally critically ill. LV dysfunction persists. starting to get volume overloaded, but given concern for ongoing cerebral vasospasm, unable to actively diurese patient. sodium wasting persists, but uop downtrending slightly. very hypokalemic today, likely due to steroids. remains intubated, sedated, paralyzed, on flolan. CXR today appears worse with worsening airspace disease. Lactate remains slightly elevated, confirming persistent shock. 10/17: Lung infiltrates dense bilaterally, reflected in shunting and problems with oxygenation. Developed vasospasm on TCDs and required angiogram and intra- arterial verapamil again today. 10/18: SBP 160 - 170 range. FiO2 0.55. BNP > 5000. Not tolerating attempts at maintaining higher BP due to worsening heart failure. Several episodes of vasospasm. Watch daily TCDs closely. Sputum no growth. 10/19: Tmax 99.8. Currently 99. Remains on 4 vasopressors and epoprostenol 10/20: Yesterday. Returned IR for intra-arterial calcium channel jose infusion for vasospasm. Transcranial Dopplers today Still pending. Remains on significant vasopressor support. 10/21: Good response to diuresis, check BNP. TCDs pending. Heart failure remains a major problem. 10/22: CVP 21 - 22, finger tips blue, digits pale white despite high dose milrinone dilation. Greyson and vaso much reduced. Will try diltiazem gtt for digital ischemia. Urine remains > 200/hr and proximal limbs are well perfused. This digital ischemia appears to be a local phenomenon ala Raynaud's. New subcutaneous emphysema right anterior chest wall. 10/23: Old CVL removed. Fingertips remain marginal, some necrotic despite diltiazem and milrinone treatment for digital ischemia. Cardiac output > 7 liters/min and urine copious, confirming good perfusion pressure and flow. This continues to be a local phenomenon of the digits ala Raynaud's. We are trying to wean vasopressors off but are required to maintaining a cerebral perfusion pressure suitable for the treatment of aneurysmal subarachnoid bleed. Frankly, the importance of brain function eclipses fingertips. 10/24: Afebrile. Well perfused except for index finger left hand, few tips fingers right. Arms and hands warmer with resolving circumferential edema. Diltiazem and milrinone gtt continue. Greyson to 10 mics/min. 10/25: Digits are warm and well perfused except left index and right 4th fingertips; demarcated and not viable. Dry. Diltiazem and milrinone infusions continue to help reverse digital ischemia. 10/26: Forced diuresis continues and BP remains nicely elevated. Hands and digits warm aside from left index and right 4th fingertips which have demarcated. 10/27: Good response to diuretics. Perfusion pressure and documented flow excellent. Continue to wean vent. 10/28: Start SBTs. Fluid balance back toward normal. 10/29: Tolerating SBTs. Lowering sedation. Edema resolving. 10/30: Tolerating tube feeds, will taper off TPN and remove central line. Continue diuretics. 10/31: net -3L over 24h. mental status at baseline. tolerating CPAP, but does not have the mental status to protect airway. will likely need trach/peg. placement will be a problem due to lack of funding. 11/01: no changes or improvements. discussed with yesterday and she "does not want any more setbacks" and would prefer trach versus trial of extubation. I agree with her assessment. plan for trach today. placement is still a significant problem. net -2L/24h. 11/02: wbc uptrending, febrile. antonio cultured, started empiric abx today. failed SBT overnight and placed back on rate. 11/03: Tolerating CPAP today, following commands. Low-grade fever cultures pending. WBC count normal today 11/04: Remains on TPs since yesterday. Neuro exam remains stable. Follows commands weakly. Na 152 11/05: Remains off vent for 48 hours now. Sitting up in stretcher chair today. Na improved to 149. remains weak but improving SUBJECTIVE 11/06: Continues to tolerate TPs well. Neuro exam unchanged. Sodium 148 today. Continues to spike intermittent fever Tmax 102.7. 11/07: Continued fevers, no leukocytosis. 11/08: Stable for replacement of bone flap. 11/09: Getting a bit excessively diuresed, will decrease lasix and convert to PO. Fingertips and toes demarcating as expected. No immediate action required except for continued diltiazem therapy. Clearly a Raynaud's type digital ischemia as peripheral perfusion and urine output indicated excellent peripheral perfusion. 11/10: Tracks with eyes today, nods to questions. Failed swallow again. Objective Vital Signs Date Time Temp Pulse Resp B/P (MAP) Pulse Ox O2 Delivery O2 Flow Rate FiO2 11/11/16 10:00 98 11/11/16 08:00 98.9 21 120/79 (93) 100 11/11/16 07:14 T-piece 28 11/10/16 19:20 6.00 Intake and Output 11/11/16 11/11/16 11/12/16 08:00 16:00 00:00 Intake Total 862 ml 100 ml Output Total 1050 ml Balance -188 ml 100 ml Result Diagram: 11/08/16 0451 11/09/16 0418 Imaging Last Impressions Chest X-Ray 10/20/16 0000 Signed Impressions: Service Date/Time: October 03:47 - CONCLUSION: 1. Stable tubes and lines. 2. Stable bilateral lower lung zone airspace disease. 3. Stable small right pleural effusion. 4. No significant interval change. Kev Vergara MD Transcranial Doppler Study Complete 10/19/16 0600 Signed Impressions: Service Date/Time: Wednesday, October 19, 2016 08:02 - CONCLUSION: Suspect developing right MCA vasospasm Yosvany Polk MD Liver Ultrasound 10/19/16 0000 Signed Impressions: Service Date/Time: Wednesday, October 19, 2016 11:20 - CONCLUSION: 1. Sludge filled gallbladder with thickened wall. 2. Moderate size bilateral pleural effusions and mild upper abdominal ascites. Santos Vazquez MD Head CT 10/17/16 0000 Signed Impressions: Service Date/Time: Monday, October 17, 2016 15:06 - CONCLUSION: Ventricles are slightly larger without ventriculostomy. Edema in the left hemisphere the brain herniating through the operative site. Remington Woodward MD FACR Cerebral Arteriogram 10/17/16 0000 Signed Impressions: Service Date/Time: Monday, October 17, 2016 00:00 - CONCLUSION: 1. Uncompensated spasmolysis of the left middle cerebral artery Harvey Morejon MD Infusion Non-thrombolysis 10/14/16 1103 Signed Impressions: Service Date/Time: Friday, October 14, 2016 10:21 - CONCLUSION: 1. Uncomplicated infusion for spasmolysis Harvey Morejon MD Neck CTA 10/07/16 0000 Signed Impressions: Service Date/Time: Friday, October 07, 2016 15:03 - CONCLUSION: 1. Mild carotid bulb atherosclerotic calcification bilaterally. However, no significant stenosis is present in either internal carotid artery. 2. Paranasal sinus mucoperiosteal thickening. 3. Please refer to brain CTA report for description of the intracranial findings. Yosvany Ramirez MD Head CTA 10/07/16 0000 Signed Impressions: Service Date/Time: Friday, October 07, 2016 15:03 - CONCLUSION: 1. 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 2. Large left subdural hematoma measuring 1.3 cm in depth with a significant, 1.6 cm left to right subfalcine shift. Joni Shelton MD Objective Remarks GENERAL: 56-year-old male, trached. Lying in bed HEAD: Status post left craniectomy. Left flap sunken, Incision healing well EYES: About 3 mm bilaterally and reactive NECK: Trachea midline. 8.0 Shiley cuffed trach CARDIOVASCULAR: S1-S2 normal no murmurs RESPIRATORY: Diminished breath sounds bilateral lower lobes. GASTROINTESTINAL: Abdomen soft, non-tender, nondistended. MUSCULOSKELETAL: Ischemic changes worst to left index finger tip and right 4th fingertip, and majority of R toes. Demarcating, dry, should autoamputate. NEURO EXAM: Opens eyes follows command, right UE weaker than left, follows commands x4. Attempts to mouth words Procedures 10/13 Four-vessel cerebral angiography with verapamil treatment of vasospasm A/P Assessment and Plan Neuro/Psych Status post left frontotemporal parietal craniectomy 10/08 for evacuation subdural hematoma/duraplasty Left subdural hematoma - 1.3 cm with 1.6 shift left to right Subarachnoid hemorrhage Alvarado and Rodriguez 5, Carroll grade 4 - left P-comm status post 4 coiling 10/08 - Nimodipine completed 21 days. Initiated 10/13. - Levetiracetam 500 mg per tube twice a day with phenytoin 100mg per tube q8h. Fever persisting- DC phenytoin, observe clinically, check EEG - 10/13 and 10/14 and 10/17) 10/19 left MCA territory vasospasm, status post successful verapamil treatment by IR with 20 mg verapamil - SBP goal now reduced to <140. - 10/17 CT brain - less hemisphere edema with herniation through left craniotomy site - Dr. Perry/neurosurgery. Plan to replace bone flap- not cleared until bacteremia fever subsides Respiratory: Acute hypoxic Respiratory failure-ARDS- resolved Noncardiogenic/neurogenic pulmonary edema -- Nebs, HOB at 30 degrees. Remains on TP last 72 hours -- Albuterol/Atrovent every 6 hours with albuterol aerosols every 2 hours for Dyspnea -- continue TP 24/7 as tolerated. Up to stretcher chair daily -- s/p Trach Dr. Sullivan/Dr. Collazo 11/01 Cardiovascular: Severe shock - septic and cardiogenic- resolved. Severe LV dysfunction secondary to SAH - persistent. Elevated troponin- secondary to SAH, unlikely to be ACS. - resolved. Pulmonary hypertension Continue diuresis. Free water replacement with half normal saline for 24 hours completed 11/05 Na improved, free water through NG tube Echocardiogram 10/14/16 revealed EF 40-45%. Septal hypokinesis. Moderate MR. Severe pulmonary hypertension with pulmonary artery pressures estimated 61 mmHg Repeat Echo to rule out veg- has underlying MR Renal: Cerebral Salt Wasting/SIADH-resolved now hypernatremic Strict I/Os. See FEN below. Creatinine currently within normal limits FEN/GI: Severe hyponatremia-resolved now hypernatremic Hypokalemia Elevated transaminases Hyperammonemia - DCd sodium chloride 3gm po TID 11/04 - Half-normal saline for 24 hours completed; continue free water 250 mL 4 times a day - ICU electrolyte protocol. aggressively replace potassium losses. - Lansoprazole 30 mg by tube daily for GI prophylaxis - Docusate sodium 100 mg twice a day, senna liquid 8.6 mg twice a day and polyethylene glycol 3350 17 g twice a day for bowel regimen - Lactulose 30 cc QID. ammonia 46 on 10/31, repeat tomorrow - NPO per speech, Continue NGT feeding Heme/ID: Septic Shock- resolved. Possible HCAP New Fever, leukocytosis, staph epi bacteremia - limited Echo to evaluate vegetation. DC Dilantin. Consult ID, need clearance for bone flap replacement also - Digital Ischemia with necrosis, conservative management - s/p Diltiazem and milrinone infusions - Digits have demarcated. cardizem PO (for digital ischemia, Raynaud's) Pertinent cultures 10/15 - blood cultures - 1 out of 4 anaerobic gram-negative cocci possibly Veillonella 10/15 - sputum - beta strep not A, strep species 10/19 cultures NG 10/21/ bottles blood cultures coag negative staph. Culture 11/01. coag neg stah 03/19 bottles f/u 11/01 blood, sputum, urine cultures. Continue vancomycin, cefepime, flagyl. DCd Flagyl 11/04 C diff negative. ABX adjustments by infectious diseases Endocrine: Presumed Adrenal Insufficiency Discontinued fludrocortisone 10/18. Monitor sodium 6 hours. Sliding-scale insulin with NovoLog -Accu-Cheks every 4 hours to maintain euglycemia d/cd Levemir bid. Taper off cortisone -> done Prophylaxis: GI Prophylaxis - lansoprazole DVT Prophylaxis-- SCDs, heparin subcutaneous Lines: - 10/14 right SC TLC, removed 10/22 - 10/14 right radial art line, removed 10/14 - 10/15 left radial art line, removed 10/16 - 10/15 left femoral art line - 10/22 left groin triple lumen placed, d/c 09/17 - d/c ramires. Overall impression: No change. The patient's digital ischemia developed when he had a cardiac output over 8.0 liters/min, CVP was over 20 mm Hg, and urine over 75 ml/hr for many days. BNP was elevated at 777. His hands and feet were warm but the fingers and toes became cold, white, nearly cadaveric. Neosynephrine was only vasopressor and it was at 30 units/min only. We stopped it immediately and started milrinone and cardizem iv infusions. Most fingers and toes responded well to the vascular dilators but a few digits demarcated and became necrotic. Anticoagulation was not an option in face of recent aneurysm rupture and gastritis. Patients with this degree of digital ischemia (severe Raynaud's) usually have an underlying illness such as malignancy, mixed connective tissue disorder, collagen vascular disease, rheumatoid disease, etc. This workup can progress after he has cleared exogenous steroids which were just stopped. He's in a pretty revved up inflammatory state now and the lab values will be altered by it. Overall impression: Stable for replacement of bone flap. Bone flap replacement on hold due to fevers. OK for PEG anytime. Rodriguez Collazo MD Nov 11, 2016 11:01
--- NOTE | 2016-11-11 11:06 | HHI.CCPN ---
Subjective Remarks/Hospital Course Note for 11/11/16: 10/07: 56-year-old male presents with intracranial bleed. Patient was transferred from [facility] at [facility]. As per the paramedics and the nurse who assisted the patient said that patient earlier this morning was coming down the stairs when he started feeling some left-sided weakness and numbness. He called 911 and by the time EMS arrived they detected some deficit and called a stroke alert. Patient was taken to [facility]. When patient arrived his mental status started to decline and he was intubated emergently in the ER. A CAT scan of the head showed subarachnoid and subdural bleed. He was taking emergently to an angio suite for coiling of the aneurysm and later on to OR for subdural hematoma evacuation. 10/08: Remains sedated, orally intubated on mechanical ventilation. Arouses off sedation and following commands with both upper extremities earlier. Ventriculostomy in place. ICP 7, CPP mid 80s. 10/09: Remains sedated, orally intubated on mechanical ventilation. Arouses off sedation and follows commands with both upper extremities. Ventriculostomy in place. 10/10: Remains sedated, orally intubated on mechanical ventilation. Arouses off sedation and follows commands and both upper extremities. Ventriculostomy in place. ICP 5. Failed C Pap trial yesterday. 10/11: Extubated on 10/10, tolerating well. Awake and alert. Appears confused, moving all 4 extremities. Ventriculostomy discontinued today by neurosurgery 10/13: Patient has developed severe vasospasm at the left MCA territory on TCD's that was treated with IV route verapamil 10/14: patient extubated overnight. was originally following commands and neuro intact. TCDs this morning with increase LIs over yesterday, particularly Left MCA territory. On my evaluation early this morning, patient was aphasic, not moving the right side of his body, not following commands. SBP 140s at that time. net 2L negative/24h and uop almost 1L/hr at the time. I immediately bolused with 2L NS iv, placed arterial and central lines, started phenylephrine , increased SBP to goal 200 - 220 mmHg. called interventional neuroradiology and accompanied patient down personally to IR for IA verapamil again. I remained with the patient managing his hemodynamics down in IR and providing anxiolysis IV. I accompanied patient back up to [facility] where patient again was neuro intact and following commands. Sodium downtrending to 135 and urine studies and serum osms suggestive of urine sodium losses and high uop. added Florinef to mitigate sodium losses, and increased mivf to 500cc/hr to maintain euvolemia. later in the day patient decompensated requiring intubation for hyoxemia, cxr suggestive of pulmonary edema. 2d echo with evidence of EF 40%, septal hypokinesis, moderate MR. On levo, vaso, phenylephrine. difficult to get to goal SBP 200 mmHg, likely due to myocardial dysfunction. decreased goal to 180 - 200 mmHg to balance cardiac vs. neurologic goals. 10/15 Patient was discussed with Dr. Sullivan at shift change. Isuprel was initiated in effort to improve cardiac output as dobutamine not available and concerned with use of milrinone given long half life. Systolic blood pressure was relatively stable with perhaps some modest improvement from 170s to 180s for several hours after initiation. Notified when patient became abruptly hypotensive despite vasopressin, levophed 20 mcg/min, Greyson-Synephrine 300 mcg/m. He was also hypoxemic with sats in 80s despite PCV with PEEP 8 and FiO2 100%, respiratory rate in the 30s. He had decreased breath sounds bilaterally and was concerned for air trapping so removed from mechanical ventilation and bagged without improvement. Placed patient back on mechanical ventilation and provide recruitment maneuvers and increased PEEP to 12 which resulted in improvement of sats to 88% to 92%. Ordered Flolan. Discontinued isuprel and initiated epinephrine. R radial art line would not draw blood . Performed u/s guided femoral artery stick to confirm hypoxemia on ABG given poor wave form on pulse ox and PaO2 was 58. Placed new L radial art line and this resulted in ~ 30 point increase in SBP relative to prior line but patient ultimately on vasopressin, levophed 30 micrograms per minute, Greyson-Synephrine 300 micrograms per minute, epinephrine 12 mcg/min and unable to maintain target pressure (SBP in 150s). Given calcium chloride. patient with shaking movements all extremities, pupils 2mm and sluggish, no eye deviation. Rigors seemed most likely but unable to emergently rule out seizures so loaded with fosphenytoin to avoid secondary injury from seizure activity. WBC increasing and concern for HCAP so pancultured and placed on cefepime, vancomycin, azithromycin. Hydrocortisone 100 mg IV every 8 hours initiated due to concern for septic shock in a patient who has been refractory to all other above measures. Patient is to hemodynamically unstable and hypoxic for transport for neurologic imaging. Urine output has declined to 180-200 ML's per hour. Back off maintenance IV fluids to 200 ML's per hour. Bedside echo demonstrates decreased LV function with normal RV contractility and collapsible IVC suggesting ongoing maintenance fluid administration is appropriate. 10/15 additional visit: continued to deteriorate throughout the day. Seen multiple times. hypoxic on 100% fio2, flolan. required nimbex drip to maintain. repeat bedside critical care ultrasound still demonstrates severe LV dysfunction , decompressed RV, IVC more dilated than previous echo overnight, however still with respiratory variation. femoral arterial line placed with better waveform and higher pressure (likely SVR too high to allow accurate measurement of radial pressure). Pulse contour analysis without stroke volume variation, CI 3.6. SV 52mL. trialed additional albumin without improvement in hemodynamics. uop slower than before, but still significant salt wasting in the urine- sodium dropped to 125 from 132 despite already on 3% nacl infusion and aggressive sodium replacements. forced to give 23% nacl and salt tabs. declining clinically despite maximal therapy. 10/16: continues to be maximally critically ill. LV dysfunction persists. starting to get volume overloaded, but given concern for ongoing cerebral vasospasm, unable to actively diurese patient. sodium wasting persists, but uop downtrending slightly. very hypokalemic today, likely due to steroids. remains intubated, sedated, paralyzed, on flolan. CXR today appears worse with worsening airspace disease. Lactate remains slightly elevated, confirming persistent shock. 10/17: Lung infiltrates dense bilaterally, reflected in shunting and problems with oxygenation. Developed vasospasm on TCDs and required angiogram and intra- arterial verapamil again today. 10/18: SBP 160 - 170 range. FiO2 0.55. BNP > 5000. Not tolerating attempts at maintaining higher BP due to worsening heart failure. Several episodes of vasospasm. Watch daily TCDs closely. Sputum no growth. 10/19: Tmax 99.8. Currently 99. Remains on 4 vasopressors and epoprostenol 10/20: Yesterday. Returned IR for intra-arterial calcium channel jose infusion for vasospasm. Transcranial Dopplers today Still pending. Remains on significant vasopressor support. 10/21: Good response to diuresis, check BNP. TCDs pending. Heart failure remains a major problem. 10/22: CVP 21 - 22, finger tips blue, digits pale white despite high dose milrinone dilation. Greyson and vaso much reduced. Will try diltiazem gtt for digital ischemia. Urine remains > 200/hr and proximal limbs are well perfused. This digital ischemia appears to be a local phenomenon ala Raynaud's. New subcutaneous emphysema right anterior chest wall. 10/23: Old CVL removed. Fingertips remain marginal, some necrotic despite diltiazem and milrinone treatment for digital ischemia. Cardiac output > 7 liters/min and urine copious, confirming good perfusion pressure and flow. This continues to be a local phenomenon of the digits ala Raynaud's. We are trying to wean vasopressors off but are required to maintaining a cerebral perfusion pressure suitable for the treatment of aneurysmal subarachnoid bleed. Frankly, the importance of brain function eclipses fingertips. 10/24: Afebrile. Well perfused except for index finger left hand, few tips fingers right. Arms and hands warmer with resolving circumferential edema. Diltiazem and milrinone gtt continue. Greyson to 10 mics/min. 10/25: Digits are warm and well perfused except left index and right 4th fingertips; demarcated and not viable. Dry. Diltiazem and milrinone infusions continue to help reverse digital ischemia. 10/26: Forced diuresis continues and BP remains nicely elevated. Hands and digits warm aside from left index and right 4th fingertips which have demarcated. 10/27: Good response to diuretics. Perfusion pressure and documented flow excellent. Continue to wean vent. 10/28: Start SBTs. Fluid balance back toward normal. 10/29: Tolerating SBTs. Lowering sedation. Edema resolving. 10/30: Tolerating tube feeds, will taper off TPN and remove central line. Continue diuretics. 10/31: net -3L over 24h. mental status at baseline. tolerating CPAP, but does not have the mental status to protect airway. will likely need trach/peg. placement will be a problem due to lack of funding. 11/01: no changes or improvements. discussed with yesterday and she "does not want any more setbacks" and would prefer trach versus trial of extubation. I agree with her assessment. plan for trach today. placement is still a significant problem. net -2L/24h. 11/02: wbc uptrending, febrile. antonio cultured, started empiric abx today. failed SBT overnight and placed back on rate. 11/03: Tolerating CPAP today, following commands. Low-grade fever cultures pending. WBC count normal today 11/04: Remains on TPs since yesterday. Neuro exam remains stable. Follows commands weakly. Na 152 11/05: Remains off vent for 48 hours now. Sitting up in stretcher chair today. Na improved to 149. remains weak but improving SUBJECTIVE 11/06: Continues to tolerate TPs well. Neuro exam unchanged. Sodium 148 today. Continues to spike intermittent fever Tmax 102.7. 11/07: Continued fevers, no leukocytosis. 11/08: Stable for replacement of bone flap. 11/09: Getting a bit excessively diuresed, will decrease lasix and convert to PO. Fingertips and toes demarcating as expected. No immediate action required except for continued diltiazem therapy. Clearly a Raynaud's type digital ischemia as peripheral perfusion and urine output indicated excellent peripheral perfusion. 11/10: Tracks with eyes today, nods to questions. Failed swallow again. 11/11: Plan for PEG, GI consulted. Bone flap replacement on hold due to blood cultures and fever. Objective Vital Signs Date Time Temp Pulse Resp B/P (MAP) Pulse Ox O2 Delivery O2 Flow Rate FiO2 11/11/16 10:00 98 11/11/16 08:00 98.9 21 120/79 (93) 100 11/11/16 07:14 T-piece 28 11/10/16 19:20 6.00 Intake and Output 11/11/16 11/11/16 11/12/16 08:00 16:00 00:00 Intake Total 862 ml 100 ml Output Total 1050 ml Balance -188 ml 100 ml Result Diagram: 11/08/16 0451 11/09/16 0418 Imaging Last Impressions Chest X-Ray 10/20/16 0000 Signed Impressions: Service Date/Time: October 03:47 - CONCLUSION: 1. Stable tubes and lines. 2. Stable bilateral lower lung zone airspace disease. 3. Stable small right pleural effusion. 4. No significant interval change. Kev Vergara MD Transcranial Doppler Study Complete 10/19/16 0600 Signed Impressions: Service Date/Time: Wednesday, October 19, 2016 08:02 - CONCLUSION: Suspect developing right MCA vasospasm Yosvany Polk MD Liver Ultrasound 10/19/16 0000 Signed Impressions: Service Date/Time: Wednesday, October 19, 2016 11:20 - CONCLUSION: 1. Sludge filled gallbladder with thickened wall. 2. Moderate size bilateral pleural effusions and mild upper abdominal ascites. Santos Vazquez MD Head CT 10/17/16 0000 Signed Impressions: Service Date/Time: Monday, October 17, 2016 15:06 - CONCLUSION: Ventricles are slightly larger without ventriculostomy. Edema in the left hemisphere the brain herniating through the operative site. Remington Woodward MD FACR Cerebral Arteriogram 10/17/16 0000 Signed Impressions: Service Date/Time: Monday, October 17, 2016 00:00 - CONCLUSION: 1. Uncompensated spasmolysis of the left middle cerebral artery Harvey Morejon MD Infusion Non-thrombolysis 10/14/16 1103 Signed Impressions: Service Date/Time: Friday, October 14, 2016 10:21 - CONCLUSION: 1. Uncomplicated infusion for spasmolysis Harvey Morejon MD Neck CTA 10/07/16 0000 Signed Impressions: Service Date/Time: Friday, October 07, 2016 15:03 - CONCLUSION: 1. Mild carotid bulb atherosclerotic calcification bilaterally. However, no significant stenosis is present in either internal carotid artery. 2. Paranasal sinus mucoperiosteal thickening. 3. Please refer to brain CTA report for description of the intracranial findings. Yosvany Ramirez MD Head CTA 10/07/16 0000 Signed Impressions: Service Date/Time: Friday, October 07, 2016 15:03 - CONCLUSION: 1. 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 2. Large left subdural hematoma measuring 1.3 cm in depth with a significant, 1.6 cm left to right subfalcine shift. Joni Shelton MD Objective Remarks GENERAL: 56-year-old male. More alert. HEAD: Status post left craniectomy. Left flap sunken, Incision healing well EYES: About 3 mm bilaterally and reactive NECK: Trachea midline. 8.0 Shiley cuffed trach, site clean, dry. CARDIOVASCULAR: S1-S2 normal no murmurs RESPIRATORY: Diminished breath sounds bilateral lower lobes. Strong respiratory effort on collar. GASTROINTESTINAL: Abdomen soft, non-tender, nondistended. BS active. MUSCULOSKELETAL: Ischemic changes worst to left index finger tip, right 4th fingertip, and majority of R toes. Demarcating, dry, should autoamputate. NEURO EXAM: Opens eyes and follows command, right UE weaker than left, follows commands x4. Attempts to mouth words Procedures 10/13 Four-vessel cerebral angiography with verapamil treatment of vasospasm A/P Assessment and Plan Neuro/Psych Status post left frontotemporal parietal craniectomy 10/08 for evacuation subdural hematoma/duraplasty Left subdural hematoma - 1.3 cm with 1.6 shift left to right Subarachnoid hemorrhage Alvarado and Rodriguez 5, Carroll grade 4 - left P-comm status post 4 coiling 10/08 - Nimodipine completed 21 days. Initiated 10/13. - Levetiracetam 500 mg per tube twice a day with phenytoin 100mg per tube q8h. Fever persisting- DC phenytoin, observe clinically, check EEG - 10/13 and 10/14 and 10/17) 10/19 left MCA territory vasospasm, status post successful verapamil treatment by IR with 20 mg verapamil - SBP goal now reduced to <140. - 10/17 CT brain - less hemisphere edema with herniation through left craniotomy site - Dr. Perry/neurosurgery. Plan to replace bone flap- not cleared until bacteremia fever subsides - Flap replacement on hold 11/11 Respiratory: Acute hypoxic Respiratory failure-ARDS- resolved Noncardiogenic/neurogenic pulmonary edema -- Nebs, HOB at 30 degrees. Remains on TP last 72 hours -- Albuterol/Atrovent every 6 hours with albuterol aerosols every 2 hours for Dyspnea -- continue TP 24/7 as tolerated. Up to stretcher chair daily -- s/p Trach Dr. Sullivan/Dr. Collazo 11/01 Cardiovascular: Severe shock - septic and cardiogenic- resolved. Severe LV dysfunction secondary to SAH - persistent. Elevated troponin- secondary to SAH, unlikely to be ACS. - resolved. Pulmonary hypertension Continue diuresis. Free water replacement with half normal saline for 24 hours completed 11/05 Na improved, free water through NG tube Echocardiogram 10/14/16 revealed EF 40-45%. Septal hypokinesis. Moderate MR. Severe pulmonary hypertension with pulmonary artery pressures estimated 61 mmHg Repeat Echo to rule out veg- has underlying MR Renal: Cerebral Salt Wasting/SIADH-resolved now hypernatremic Strict I/Os. See FEN below. Creatinine currently within normal limits -> resolved. FEN/GI: Severe hyponatremia-resolved now hypernatremic Hypokalemia Elevated transaminases Hyperammonemia - DCd sodium chloride 3gm po TID 11/04 - Half-normal saline for 24 hours completed; continue free water 250 mL 4 times a day - ICU electrolyte protocol. aggressively replace potassium losses. - Lansoprazole 30 mg by tube daily for GI prophylaxis - Docusate sodium 100 mg twice a day, senna liquid 8.6 mg twice a day and polyethylene glycol 3350 17 g twice a day for bowel regimen - Lactulose 30 cc QID. ammonia 46 on 10/31, repeat tomorrow - NPO per speech, Continue NGT feeding - Failed swallow eval again 11/11 Heme/ID: Septic Shock- resolved. Possible HCAP New Fever, leukocytosis, staph epi bacteremia - limited Echo to evaluate vegetation. DC Dilantin. Consult ID, need clearance for bone flap replacement also - Digital Ischemia with necrosis, conservative management - s/p Diltiazem and milrinone infusions - Digits have demarcated. cardizem PO (for digital ischemia, Raynaud's) Pertinent cultures 10/15 - blood cultures - 1 out of 4 anaerobic gram-negative cocci possibly Veillonella 10/15 - sputum - beta strep not A, strep species 10/19 cultures NG 10/21 02/16 bottles blood cultures coag negative staph. Culture 11/01. coag neg stah 03/19 bottles f/u 11/01 blood, sputum, urine cultures. Continue vancomycin, cefepime, flagyl. DCd Flagyl 11/04 C diff negative. ABX adjustments by infectious diseases Endocrine: Presumed Adrenal Insufficiency Discontinued fludrocortisone 10/18. Monitor sodium 6 hours. Sliding-scale insulin with NovoLog -Accu-Cheks every 4 hours to maintain euglycemia d/cd Levemir bid. Taper off cortisone -> done Prophylaxis: GI Prophylaxis - lansoprazole DVT Prophylaxis-- SCDs, heparin subcutaneous Lines: - 10/14 right SC TLC, removed 10/22 - 10/14 right radial art line, removed 10/14 - 10/15 left radial art line, removed 10/16 - 10/15 left femoral art line - 10/22 left groin triple lumen placed, d/c 10/30 - d/c ike. Overall impression: No change. The patient's digital ischemia developed when he had a cardiac output over 8.0 liters/min, CVP was over 20 mm Hg, and urine over 75 ml/hr for many days. BNP was elevated at 777. His hands and feet were warm but the fingers and toes became cold, white, nearly cadaveric. Neosynephrine was only vasopressor and it was at 30 units/min only. We stopped it immediately and started milrinone and cardizem iv infusions. Most fingers and toes responded well to the vascular dilators but a few digits demarcated and became necrotic. Anticoagulation was not an option in face of recent aneurysm rupture and gastritis. Patients with this degree of digital ischemia (severe Raynaud's) usually have an underlying illness such as malignancy, mixed connective tissue disorder, collagen vascular disease, rheumatoid disease, etc. This workup can progress after he has cleared exogenous steroids which were just stopped. He's in a pretty revved up inflammatory state now and the lab values will be altered by it. Overall impression: Stable for replacement of bone flap. Bone flap replacement on hold due to fevers. OK for PEG anytime. Digit tips remain dry; allow to autoamputate. Rodriguez Collazo MD Nov 11, 2016 11:06
[2016-11-11] MEDS: INSULIN ASPART SUPPLEMENTAL SCALE SQ SCH ×3 (12:00→20:45)
--- NOTE | 2016-11-11 14:53 | PD.CONS ---
HPI History of Present Illness This is a 56 year old male who was brought by EMS after experiencing left sided weakness, had a CVA. He was found to have subarachnoid bleed, subdural bleed s/ p coiling and SDH evacuation. s/p tracheostomy, replacement bone flap. He has failed swallow eval. GI consulted for PEG tube placement. [facility] Past Medical History noncontributory Past Surgical History tracheostomy SDH evacuation cranioplasty Coded Allergies: No Known Allergies (Unverified , 05/06/16) Family History noncontributory Social History noncontributory Review of Systems ROS noncontributory GI Exam Vitals I&O Vital Signs Date Time Temp Pulse Resp B/P (MAP) Pulse Ox O2 Delivery O2 Flow Rate FiO2 11/11/16 14:00 94 11/11/16 12:00 99.0 96 21 125/76 (92) 100 11/11/16 12:00 99 11/11/16 10:00 98 11/11/16 08:00 90 11/11/16 08:00 98.9 90 21 120/79 (93) 100 11/11/16 07:14 100 T-piece 11/11/16 06:00 88 11/11/16 04:00 86 11/11/16 04:00 98.6 90 18 113/69 (84) 100 11/11/16 03:28 22 11/11/16 02:00 88 11/11/16 00:00 98.7 89 22 111/70 (84) 100 11/11/16 00:00 88 11/10/16 22:00 88 11/10/16 20:00 98.8 91 22 106/67 (80) 99 11/10/16 20:00 88 11/10/16 19:20 99 Trach Collar 6.00 28 11/10/16 18:00 93 11/10/16 16:00 109 11/10/16 16:00 98.6 90 22 114/72 (86) 100 I/O 11/10/16 11/10/16 11/10/16 11/11/16 11/11/16 11/11/16 07:00 15:00 23:00 07:00 15:00 23:00 Intake Total 889 ml 654 ml 862 ml 100 ml Output Total 650 ml 900 ml 1050 ml Balance 239 ml -246 ml -188 ml 100 ml IV Total 235 ml 52 ml 234 ml 100 ml Tube Feeding 554 ml 452 ml 508 ml Other 100 ml 150 ml 120 ml Output Urine Total 550 ml 400 ml 650 ml Stool Total 100 ml 500 ml 400 ml Imaging Last Impressions Chest X-Ray 11/05/16 06 Signed Impressions: Service Date/Time: Saturday, November 05, 2016 04:39 - CONCLUSION: Persistent non-consolidative infiltrates in the medial lower lungs. Santos Vazquez MD Abdomen X-Ray 10/21/16 06 Signed Impressions: Service Date/Time: Friday, October 21, 2016 03:50 - CONCLUSION: 1. NGT in the stomach. 2. General paucity of small bowel gas. This finding is nonspecific and occasionally may reflect fluid-filled loops of bowel. Otherwise, no dilated bowel loops to suggest significant ileus or obstruction. Kev Vergara MD Transcranial Doppler Study Complete 10/20/16 06 Signed Impressions: Service Date/Time: October 07:54 - CONCLUSION: Slight interval elevation of flow velocity measurements and ratio on the left Yosvany Polk MD Liver Ultrasound 10/19/16 0000 Signed Impressions: Service Date/Time: Wednesday, October 19, 2016 11:20 - CONCLUSION: 1. Sludge filled gallbladder with thickened wall. 2. Moderate size bilateral pleural effusions and mild upper abdominal ascites. Santos Vazquez MD Cerebral Arteriogram 10/19/16 0000 Signed Impressions: Service Date/Time: Wednesday, October 19, 2016 12:47 - CONCLUSION: Uncomplicated cerebral arteriography with spasmolytic therapy as described in detail above. Yosvany Polk MD Head CT 10/17/16 0000 Signed Impressions: Service Date/Time: Monday, October 17, 2016 15:06 - CONCLUSION: Ventricles are slightly larger without ventriculostomy. Edema in the left hemisphere the brain herniating through the operative site. Remington Woodward MD FACR Infusion Non-thrombolysis 10/14/16 1103 Signed Impressions: Service Date/Time: Friday, October 14, 2016 10:21 - CONCLUSION: 1. Uncomplicated infusion for spasmolysis Harvey Morejon MD Neck CTA 10/07/16 0000 Signed Impressions: Service Date/Time: Friday, October 07, 2016 15:03 - CONCLUSION: 1. Mild carotid bulb atherosclerotic calcification bilaterally. However, no significant stenosis is present in either internal carotid artery. 2. Paranasal sinus mucoperiosteal thickening. 3. Please refer to brain CTA report for description of the intracranial findings. Yosvany Ramirez MD Head CTA 10/07/16 0000 Signed Impressions: Service Date/Time: Friday, October 07, 2016 15:03 - CONCLUSION: 1. 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 2. Large left subdural hematoma measuring 1.3 cm in depth with a significant, 1.6 cm left to right subfalcine shift. Joni Shelton MD Laboratory Date/Time Source Procedure Growth Status 11/06/16 20:48 Blood Peripheral Aerobic Blood Culture - Final NO GROWTH IN 5 DAYS Complete 11/06/16 20:48 Blood Peripheral Anaerobic Blood Culture - Final NO GROWTH IN 5 DAYS Complete 11/06/16 13:00 Sputum Endotracheal Gram Stain - Final Complete 11/06/16 13:00 Sputum Endotracheal Sputum Culture - Final HEAVY GROWTH NORMAL RESPIRATORY YOAN Complete 11/06/16 13:00 Urine Random Urine Urine Culture - Final <10,000 CFU/ML GRAM POSITIVE YOAN Complete Physical Examination HEENT: normocephalic; atraumatic; no jaundice. trach to vent CHEST: CTA, shallow respirations CARDIAC: RRR ABDOMEN: Soft, nondistended, nontender; no hepatosplenomegaly; bowel sounds are present in all four quadrants. EXTREMITIES: No clubbing, cyanosis, or edema. SKIN: Normal; no rash; no jaundice. STATION HELPER: nonverbal Assessment and Plan Plan ASSESSMENT - dysphagia - failed swallow eval. s/p trach. - anemia -HH stable - SDH s/p evacuation, subrachnoid hemorrhage s/p coiling per [facility] - acute hypoxid respiratory failure, on vent, per [facility] - pumonary HTN per [facility] PLAN - EGD with PEG tube placement Monday - hold TF Monday night midnight - hold heparin Monday - obtain consent - on levaquin - monitor labs - supportive care - further recs to follow This pt seen by myself and Dr Cao and this note is written on his behalf Lakeshia Luis Nov 11, 2016 14:53
[2016-11-11] MEDS: MELATONIN 5 MG TAB PO SCH (20:44)
[2016-11-11] MEDS: RESP: ALBUTEROL 2.5 MG/3 ML NEB (PRN) INH (21:11)
--- NOTE | 2016-11-11 21:28 | RADRPT ---
EXAM DATE/TIME: 11/11/2016 20:54 [facility] COMPARISON: CHEST SINGLE AP, November 05, 2016, 4:39. INDICATIONS : Respiratory disease. MEDICAL HISTORY : Hypertension. Seizures, subarachnoid hemmorrage SURGICAL HISTORY : Craniotomy. Ventriculostomy ENCOUNTER: Subsequent ACUITY: 3 weeks PAIN SCORE: Non-responsive. LOCATION: Bilateral chest FINDINGS: Very mild right base atelectasis noted. Left lung clear. No pleural effusion or pneumothorax on eithe r side. Heart size stable, normal. Tracheostomy tube again noted is seen nasogastric tube has been. CONCLUSION: Trace right base atelectasis. Yosvany Butler MD on November 11, 2016 at 21:26 Board Certified Radiologist. This report was verified electronically.
[2016-11-11] MEDS: HYDROmorphone HCL PF 1 MG/ML VIAL IV PUSH PRN (23:53)
[2016-11-12] VITALS (11 sets, daily range): BP systolic 128–148; BP diastolic 71–84; PULSE 90–116; RESP 16–24; TEMP 98.6–99.1; O2SAT 97–100
[2016-11-12] MEDS: RESP: ALBUTEROL 2.5 MG/3 ML NEB (PRN) INH ×3 (00:46→20:07)
[2016-11-12] MEDS: CHLORHEXIDINE GLUCONATE 2 % 1 PACK (2 CLOTHS) TOP SCH (04:00)
[2016-11-12 05:08] LABS: AUTOMATED NEUTROPHIL # 3.7 TH/MM3 (1.8-7.7); BASOPHIL # 0.1 TH/MM3 (0-0.2); BASOPHIL % 0.7 % (0.0-2.0); EOSINOPHIL # 1.6 TH/MM3 (0-0.4); HEMATOCRIT 29.1 % (39.0-51.0); HEMO FLAGS DIFF FINAL; LYMPH % 23.7 % (9.0-44.0); LYMPHOCYTE # 1.8 TH/MM3 (1.0-4.8); MEAN CELL VOLUME 96.4 FL (80.0-100.0); MEAN CORPUSCULAR HEMOGLOBIN 31.7 PG (27.0-34.0); MEAN CORPUSCULAR HGB CONC 32.9 % (32.0-36.0); MONO % 6.9 % (0.0-8.0); NEUT % 47.7 % (16.0-70.0); PLATELET COUNT 345 TH/MM3 (150-450); RED BLOOD COUNT 3.02 MIL/MM3 (4.50-5.90); RED CELL DISTRIBUTION WIDTH 14.3 % (11.6-17.2); WHITE BLOOD COUNT 7.7 TH/MM3 (4.0-11.0)
[2016-11-12 05:17] LABS: APTT (PATIENT) 25.8 SEC (24.3-30.1); INTERNATIONAL NORMALIZED RATIO 1.1 RATIO
[2016-11-12 05:32] LABS: BICARBONATE 29.9 MEQ/L (21.0-32.0); POTASSIUM 3.8 MEQ/L (3.5-5.1)
[2016-11-12] MEDS: HEPARIN SODIUM - SQ 10,000 UNITS/ML VIAL SQ SCH ×3 (06:00→22:00)
[2016-11-12] MEDS: DILTIAZEM HCL 90 MG TAB PO SCH ×5 (06:00→23:04)
[2016-11-12] MEDS: CHLORHEXIDINE 0.12% (ORAL KIT) 15 ML CUP MT SCH ×2 (08:00→20:37)
[2016-11-12] MEDS: BENEPROTEIN POWDER 1 PACK G-TUBE SCH ×3 (08:45→17:44)
[2016-11-12] MEDS: LANSOPRAZOLE SOLUTAB 30 MG TAB NG SCH (08:45)
[2016-11-12] MEDS: levETIRAcetam 500 MG/5 ML UDC NG SCH ×2 (08:45→20:37)
[2016-11-12] MEDS: ARTIFICIAL TEARS OPTH SOLN 15 ML BTL EACH EYE SCH ×3 (08:45→17:44)
[2016-11-12] MEDS: SODIUM CHLORIDE 0.9% FLUSH 10 ML FLUSH IV FLUSH SCH ×2 (08:45→20:37)
[2016-11-12] MEDS: FUROSEMIDE 40 MG/5 ML UNIT DOSE CUP NG SCH (08:45)
[2016-11-12] MEDS: LACTOBACILLUS ACIDOPHILUS TAB PO SCH ×3 (08:45→17:44)
[2016-11-12] MEDS: LEVOFLOXACIN 750 MG TAB PO SCH (08:45)
[2016-11-12] MEDS: FLUCONAZOLE 100 MG TAB PO SCH (08:45)
--- NOTE | 2016-11-12 10:38 | HHI.CCPN ---
Subjective Remarks/Hospital Course Note for 11/11/16: 10/07: 56-year-old male presents with intracranial bleed. Patient was transferred from [facility] at [facility]. As per the paramedics and the nurse who assisted the patient said that patient earlier this morning was coming down the stairs when he started feeling some left-sided weakness and numbness. He called 911 and by the time EMS arrived they detected some deficit and called a stroke alert. Patient was taken to [facility]. When patient arrived his mental status started to decline and he was intubated emergently in the ER. A CAT scan of the head showed subarachnoid and subdural bleed. He was taking emergently to an angio suite for coiling of the aneurysm and later on to OR for subdural hematoma evacuation. 10/08: Remains sedated, orally intubated on mechanical ventilation. Arouses off sedation and following commands with both upper extremities earlier. Ventriculostomy in place. ICP 7, CPP mid 80s. 10/09: Remains sedated, orally intubated on mechanical ventilation. Arouses off sedation and follows commands with both upper extremities. Ventriculostomy in place. 10/10: Remains sedated, orally intubated on mechanical ventilation. Arouses off sedation and follows commands and both upper extremities. Ventriculostomy in place. ICP 5. Failed C Pap trial yesterday. 10/11: Extubated on 10/10, tolerating well. Awake and alert. Appears confused, moving all 4 extremities. Ventriculostomy discontinued today by neurosurgery 10/13: Patient has developed severe vasospasm at the left MCA territory on TCD's that was treated with IV route verapamil 10/14: patient extubated overnight. was originally following commands and neuro intact. TCDs this morning with increase LIs over yesterday, particularly Left MCA territory. On my evaluation early this morning, patient was aphasic, not moving the right side of his body, not following commands. SBP 140s at that time. net 2L negative/24h and uop almost 1L/hr at the time. I immediately bolused with 2L NS iv, placed arterial and central lines, started phenylephrine , increased SBP to goal 200 - 220 mmHg. called interventional neuroradiology and accompanied patient down personally to IR for IA verapamil again. I remained with the patient managing his hemodynamics down in IR and providing anxiolysis IV. I accompanied patient back up to [facility] where patient again was neuro intact and following commands. Sodium downtrending to 135 and urine studies and serum osms suggestive of urine sodium losses and high uop. added Florinef to mitigate sodium losses, and increased mivf to 500cc/hr to maintain euvolemia. later in the day patient decompensated requiring intubation for hyoxemia, cxr suggestive of pulmonary edema. 2d echo with evidence of EF 40%, septal hypokinesis, moderate MR. On levo, vaso, phenylephrine. difficult to get to goal SBP 200 mmHg, likely due to myocardial dysfunction. decreased goal to 180 - 200 mmHg to balance cardiac vs. neurologic goals. 10/15 Patient was discussed with Dr. Sullivan at shift change. Isuprel was initiated in effort to improve cardiac output as dobutamine not available and concerned with use of milrinone given long half life. Systolic blood pressure was relatively stable with perhaps some modest improvement from 170s to 180s for several hours after initiation. Notified when patient became abruptly hypotensive despite vasopressin, levophed 20 mcg/min, Greyson-Synephrine 300 mcg/m. He was also hypoxemic with sats in 80s despite PCV with PEEP 8 and FiO2 100%, respiratory rate in the 30s. He had decreased breath sounds bilaterally and was concerned for air trapping so removed from mechanical ventilation and bagged without improvement. Placed patient back on mechanical ventilation and provide recruitment maneuvers and increased PEEP to 12 which resulted in improvement of sats to 88% to 92%. Ordered Flolan. Discontinued isuprel and initiated epinephrine. R radial art line would not draw blood . Performed u/s guided femoral artery stick to confirm hypoxemia on ABG given poor wave form on pulse ox and PaO2 was 58. Placed new L radial art line and this resulted in ~ 30 point increase in SBP relative to prior line but patient ultimately on vasopressin, levophed 30 micrograms per minute, Greyson-Synephrine 300 micrograms per minute, epinephrine 12 mcg/min and unable to maintain target pressure (SBP in 150s). Given calcium chloride. patient with shaking movements all extremities, pupils 2mm and sluggish, no eye deviation. Rigors seemed most likely but unable to emergently rule out seizures so loaded with fosphenytoin to avoid secondary injury from seizure activity. WBC increasing and concern for HCAP so pancultured and placed on cefepime, vancomycin, azithromycin. Hydrocortisone 100 mg IV every 8 hours initiated due to concern for septic shock in a patient who has been refractory to all other above measures. Patient is to hemodynamically unstable and hypoxic for transport for neurologic imaging. Urine output has declined to 180-200 ML's per hour. Back off maintenance IV fluids to 200 ML's per hour. Bedside echo demonstrates decreased LV function with normal RV contractility and collapsible IVC suggesting ongoing maintenance fluid administration is appropriate. 10/15 additional visit: continued to deteriorate throughout the day. Seen multiple times. hypoxic on 100% fio2, flolan. required nimbex drip to maintain. repeat bedside critical care ultrasound still demonstrates severe LV dysfunction , decompressed RV, IVC more dilated than previous echo overnight, however still with respiratory variation. femoral arterial line placed with better waveform and higher pressure (likely SVR too high to allow accurate measurement of radial pressure). Pulse contour analysis without stroke volume variation, CI 3.6. SV 52mL. trialed additional albumin without improvement in hemodynamics. uop slower than before, but still significant salt wasting in the urine- sodium dropped to 125 from 132 despite already on 3% nacl infusion and aggressive sodium replacements. forced to give 23% nacl and salt tabs. declining clinically despite maximal therapy. 10/16: continues to be maximally critically ill. LV dysfunction persists. starting to get volume overloaded, but given concern for ongoing cerebral vasospasm, unable to actively diurese patient. sodium wasting persists, but uop downtrending slightly. very hypokalemic today, likely due to steroids. remains intubated, sedated, paralyzed, on flolan. CXR today appears worse with worsening airspace disease. Lactate remains slightly elevated, confirming persistent shock. 10/17: Lung infiltrates dense bilaterally, reflected in shunting and problems with oxygenation. Developed vasospasm on TCDs and required angiogram and intra- arterial verapamil again today. 10/18: SBP 160 - 170 range. FiO2 0.55. BNP > 5000. Not tolerating attempts at maintaining higher BP due to worsening heart failure. Several episodes of vasospasm. Watch daily TCDs closely. Sputum no growth. 10/19: Tmax 99.8. Currently 99. Remains on 4 vasopressors and epoprostenol 10/20: Yesterday. Returned IR for intra-arterial calcium channel jose infusion for vasospasm. Transcranial Dopplers today Still pending. Remains on significant vasopressor support. 10/21: Good response to diuresis, check BNP. TCDs pending. Heart failure remains a major problem. 10/22: CVP 21 - 22, finger tips blue, digits pale white despite high dose milrinone dilation. Greyson and vaso much reduced. Will try diltiazem gtt for digital ischemia. Urine remains > 200/hr and proximal limbs are well perfused. This digital ischemia appears to be a local phenomenon ala Raynaud's. New subcutaneous emphysema right anterior chest wall. 10/23: Old CVL removed. Fingertips remain marginal, some necrotic despite diltiazem and milrinone treatment for digital ischemia. Cardiac output > 7 liters/min and urine copious, confirming good perfusion pressure and flow. This continues to be a local phenomenon of the digits ala Raynaud's. We are trying to wean vasopressors off but are required to maintaining a cerebral perfusion pressure suitable for the treatment of aneurysmal subarachnoid bleed. Frankly, the importance of brain function eclipses fingertips. 10/24: Afebrile. Well perfused except for index finger left hand, few tips fingers right. Arms and hands warmer with resolving circumferential edema. Diltiazem and milrinone gtt continue. Greyson to 10 mics/min. 10/25: Digits are warm and well perfused except left index and right 4th fingertips; demarcated and not viable. Dry. Diltiazem and milrinone infusions continue to help reverse digital ischemia. 10/26: Forced diuresis continues and BP remains nicely elevated. Hands and digits warm aside from left index and right 4th fingertips which have demarcated. 10/27: Good response to diuretics. Perfusion pressure and documented flow excellent. Continue to wean vent. 10/28: Start SBTs. Fluid balance back toward normal. 10/29: Tolerating SBTs. Lowering sedation. Edema resolving. 10/30: Tolerating tube feeds, will taper off TPN and remove central line. Continue diuretics. 10/31: net -3L over 24h. mental status at baseline. tolerating CPAP, but does not have the mental status to protect airway. will likely need trach/peg. placement will be a problem due to lack of funding. 11/01: no changes or improvements. discussed with yesterday and she "does not want any more setbacks" and would prefer trach versus trial of extubation. I agree with her assessment. plan for trach today. placement is still a significant problem. net -2L/24h. 11/02: wbc uptrending, febrile. antonio cultured, started empiric abx today. failed SBT overnight and placed back on rate. 11/03: Tolerating CPAP today, following commands. Low-grade fever cultures pending. WBC count normal today 11/04: Remains on TPs since yesterday. Neuro exam remains stable. Follows commands weakly. Na 152 11/05: Remains off vent for 48 hours now. Sitting up in stretcher chair today. Na improved to 149. remains weak but improving 11/06: Continues to tolerate TPs well. Neuro exam unchanged. Sodium 148 today. Continues to spike intermittent fever Tmax 102.7. 11/07: Continued fevers, no leukocytosis. 11/08: Stable for replacement of bone flap. 11/09: Getting a bit excessively diuresed, will decrease lasix and convert to PO. Fingertips and toes demarcating as expected. No immediate action required except for continued diltiazem therapy. Clearly a Raynaud's type digital ischemia as peripheral perfusion and urine output indicated excellent peripheral perfusion. 11/10: Tracks with eyes today, nods to questions. Failed swallow again. 11/11: Plan for PEG, GI consulted. Bone flap replacement on hold due to blood cultures and fever. 11/12: May get PEG today, Bone flap to be replaced coming week per Dr. Perry. Afebrile no white count Objective Vital Signs Date Time Temp Pulse Resp B/P (MAP) Pulse Ox O2 Delivery O2 Flow Rate FiO2 11/12/16 08:00 116 11/12/16 08:00 98.6 16 132/76 (94) 100 11/12/16 07:55 T-piece 5.00 28 Intake and Output 11/12/16 11/12/16 11/13/16 08:00 16:00 00:00 Intake Total 280 ml Output Total 550 ml Balance -270 ml Result Diagram: 11/12/16 0415 11/12/16 0415 Imaging Last Impressions Chest X-Ray 10/20/16 0000 Signed Impressions: Service Date/Time: , October 20, 2016 03:47 - CONCLUSION: 1. Stable tubes and lines. 2. Stable bilateral lower lung zone airspace disease. 3. Stable small right pleural effusion. 4. No significant interval change. Kev Vergara MD Transcranial Doppler Study Complete 10/19/16 0600 Signed Impressions: Service Date/Time: Wednesday, October 19, 2016 08:02 - CONCLUSION: Suspect developing right MCA vasospasm Yosvany Polk MD Liver Ultrasound 10/19/16 0000 Signed Impressions: Service Date/Time: Wednesday, October 19, 2016 11:20 - CONCLUSION: 1. Sludge filled gallbladder with thickened wall. 2. Moderate size bilateral pleural effusions and mild upper abdominal ascites. Santos Vazquez MD Head CT 10/17/16 0000 Signed Impressions: Service Date/Time: Monday, October 17, 2016 15:06 - CONCLUSION: Ventricles are slightly larger without ventriculostomy. Edema in the left hemisphere the brain herniating through the operative site. Remington Woodward MD FACR Cerebral Arteriogram 10/17/16 0000 Signed Impressions: Service Date/Time: Monday, October 17, 2016 00:00 - CONCLUSION: 1. Uncompensated spasmolysis of the left middle cerebral artery Harvey Morejon MD Infusion Non-thrombolysis 10/14/16 1103 Signed Impressions: Service Date/Time: Friday, October 14, 2016 10:21 - CONCLUSION: 1. Uncomplicated infusion for spasmolysis Harvey Morejon MD Neck CTA 10/07/16 0000 Signed Impressions: Service Date/Time: Friday, October 07, 2016 15:03 - CONCLUSION: 1. Mild carotid bulb atherosclerotic calcification bilaterally. However, no significant stenosis is present in either internal carotid artery. 2. Paranasal sinus mucoperiosteal thickening. 3. Please refer to brain CTA report for description of the intracranial findings. Yosvany Ramirez MD Head CTA 10/07/16 0000 Signed Impressions: Service Date/Time: Friday, October 07, 2016 15:03 - CONCLUSION: 1. 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 2. Large left subdural hematoma measuring 1.3 cm in depth with a significant, 1.6 cm left to right subfalcine shift. Joni Shelton MD Objective Remarks GENERAL: 56-year-old male. More alert. HEAD: Status post left craniectomy. Left flap sunken, Incision healing well EYES: About 3 mm bilaterally and reactive NECK: Trachea midline. 8.0 Shiley cuffed trach, site clean, dry. CARDIOVASCULAR: S1-S2 normal no murmurs RESPIRATORY: Diminished breath sounds bilateral lower lobes. Strong respiratory effort on collar. GASTROINTESTINAL: Abdomen soft, non-tender, nondistended. BS active. MUSCULOSKELETAL: Ischemic changes worst to left index finger tip, right 4th fingertip, and majority of R toes. Demarcating, dry, should autoamputate. NEURO EXAM: Opens eyes and follows command, right UE weaker than left, follows commands x4. Attempts to mouth words Procedures 10/13 Four-vessel cerebral angiography with verapamil treatment of vasospasm A/P Assessment and Plan Neuro/Psych Status post left frontotemporal parietal craniectomy 10/08 for evacuation subdural hematoma/duraplasty Left subdural hematoma - 1.3 cm with 1.6 shift left to right Subarachnoid hemorrhage Alvarado and Rodriguez 5, Carroll grade 4 - left P-comm status post 4 coiling 10/08 - Nimodipine completed 21 days. Initiated 10/13. - Levetiracetam 500 mg per tube twice a day with phenytoin 100mg per tube q8h. Dilantin discontinued due to fever - 10/13 and 10/14 and 10/17) 10/19 left MCA territory vasospasm, status post successful verapamil treatment by IR with 20 mg verapamil - SBP goal now reduced to <140. - 10/17 CT brain - less hemisphere edema with herniation through left craniotomy site - Dr. Perry/neurosurgery. Plan to replace bone flap next week. Cleared by ID Respiratory: Acute hypoxic Respiratory failure-ARDS- resolved Noncardiogenic/neurogenic pulmonary edema -- Nebs, HOB at 30 degrees. Remains on TP several days -- Albuterol/Atrovent every 6 hours with albuterol aerosols every 2 hours for Dyspnea -- continue TP 24/ as tolerated. Up to stretcher chair daily -- s/p Trach Dr. Sullivan/Dr. Collazo 11/01 Cardiovascular: Septic and cardiogenic shock- resolved. LV dysfunction secondary to SAH - persistent, now resolved Elevated troponin- secondary to SAH, unlikely to be ACS. - resolved. Pulmonary hypertension Continue diuresis. Free water replacement with half normal saline for 24 hours completed 11/05 Na now elevated again, free water through NG tube Echocardiogram 10/14/16 revealed EF 40-45%. Septal hypokinesis. Moderate MR. Severe pulmonary hypertension with pulmonary artery pressures estimated 61 mmHg Limited Echo 11/06: LVEF 60-65%, Trivial mitral and tricuspid regurgitation, No vegetations noted. Renal: Cerebral Salt Wasting/SIADH-resolved now hypernatremic Strict I/Os. See FEN below. Creatinine currently within normal limits -> resolved. Re check Na at noon FEN/GI: Severe hyponatremia-resolved now hypernatremic Hypokalemia Elevated transaminases Hyperammonemia - DCd sodium chloride 3gm po TID 11/04 - Half-normal saline for 24 hours completed; continue free water 250 mL 4 times a day - ICU electrolyte protocol. aggressively replace potassium losses. - Lansoprazole 30 mg by tube daily for GI prophylaxis - Docusate sodium 100 mg twice a day, senna liquid 8.6 mg twice a day and polyethylene glycol 3350 17 g twice a day for bowel regimen - Lactulose 30 cc QID. ammonia 46 on 10/31, 37, 11/04 - NPO per speech, Continue NGT feeding, Failed swallow eval again 11/11. PEG ? today Heme/ID: Septic Shock- resolved. Possible HCAP New Fever, leukocytosis, staph epi bacteremia - limited Echo to evaluate vegetation. DC Dilantin. ID following, cleared for bone flap replacement - Digital Ischemia with necrosis, conservative management - s/p Diltiazem and milrinone infusions - Digits have demarcated, allow auto amputation. Cardizem PO (for digital ischemia, Raynaud's) Pertinent cultures 10/15 - blood cultures - 1 out of 4 anaerobic gram-negative cocci possibly Veillonella 10/15 - sputum - beta strep not A, strep species 10/19 cultures NG 10/21 1/ bottles blood cultures coag negative staph. Culture 11/01. coag neg stah / bottles Current ABX Levaquin x 7 days end 11/15/16 Diflucan duration per ID (started 11/06/16) Endocrine: Presumed Adrenal Insufficiency Discontinued fludrocortisone 10/18. Monitor sodium 6 hours. Sliding-scale insulin with NovoLog -Accu-Cheks every 4 hours to maintain euglycemia d/cd Levemir bid. Taper off cortisone -> done Prophylaxis: GI Prophylaxis - lansoprazole DVT Prophylaxis-- SCDs, heparin subcutaneous Lines: - 9/1 right SC TLC, removed 10/22 - 10/14 right radial art line, removed 10/14 - 10/15 left radial art line, removed 10/16 - 10/15 left femoral art line - 10/22 left groin triple lumen placed, d/c 10/30 - d/c ramires. Overall impression: No change. The patient's digital ischemia developed when he had a cardiac output over 8.0 liters/min, CVP was over 20 mm Hg, and urine over 75 ml/hr for many days. BNP was elevated at 777. His hands and feet were warm but the fingers and toes became cold, white, nearly cadaveric. Greyson synephrine was only vasopressor and it was at 30 units/min only. We stopped it immediately and started milrinone and cardizem iv infusions. Most fingers and toes responded well to the vascular dilators but a few digits demarcated and became necrotic. Anticoagulation was not an option in face of recent aneurysm rupture and gastritis. Patients with this degree of digital ischemia (severe Raynaud's) usually have an underlying illness such as malignancy, mixed connective tissue disorder, collagen vascular disease, rheumatoid disease, etc. This workup can progress after he has cleared exogenous steroids which were just stopped. He's in a pretty revved up inflammatory state now and the lab values will be altered by it. Overall impression: Stable for replacement of bone flap. Bone flap replacement on hold due to fevers. OK for PEG anytime. Digit tips remain dry; allow to autoamputate. Harvey Bar MD Nov 12, 2016 10:38
[2016-11-12] MEDS ORDERED: ceFAZolin 1,000 MG/NS 100 ML IV ONE ×2 (15:30)
--- NOTE | 2016-11-12 15:38 | PD.PROCEDR ---
GI Procedure PROCEDURE PERFORMED Upper endoscopy with PEG tube placement INDICATION FOR PROCEDURE Dysphagia PROCEDURE: The procedure, risks and benefits were discussed with Mr. Johansen and informed consent was obtained. Anesthesia sedated him with Diprivan. He was placed in the left lateral decubitus position. EGD: The Pentax videoscope was introduced through the oropharynx and advanced to the second portion of the duodenum under direct visualization. Retroflexion was performed in the stomach diarrhea for the PEG tube was identified by intubation and transillumination sterilized by Betadine, injected with lidocaine, 20 Congolese Microvasive PEG tube was placed with a pull technique without any immediate complication, verification of placement endoscopically at the end of the case was performed. FINDINGS: Normal exam except mild duodenitis PEG feeding tube was placed as above ESTIMATED BLOOD LOSS: 10 cc SPECIMENS REMOVED: None COMPLICATIONS: None IMPRESSION: Mild duodenitis PEG feeding tube was placed PLAN: Nothing by mouth for 6 hours if site okay may feed patient Jeffry Cao MD Nov 12, 2016 15:38
--- NOTE | 2016-11-12 15:40 | HHI.GIFU ---
Subjective Remarks Patient was seen and examined,he pulled his NG tube, his heparin is off this morning, he need PEG to urgently because of no rule out for medication or feeding Objective Vitals I&O Vital Signs Date Time Temp Pulse Resp B/P (MAP) Pulse Ox O2 Delivery O2 Flow Rate FiO2 11/12/16 12:00 98.7 112 16 130/84 (99) 99 11/12/16 12:00 112 11/12/16 08:00 116 11/12/16 08:00 98.6 116 16 132/76 (94) 100 11/12/16 07:55 100 T-piece 5.00 28 11/12/16 06:00 114 11/12/16 04:00 108 11/12/16 04:00 99.0 108 24 129/84 (99) 100 11/12/16 02:00 107 11/12/16 00:00 99.0 114 24 128/71 (90) 100 11/12/16 00:00 114 11/11/16 22:00 102 11/11/16 20:00 100 11/11/16 20:00 100.6 100 24 134/74 (94) 100 11/11/16 19:56 100 T-piece 5.00 28 11/11/16 18:00 96 11/11/16 16:00 99.7 96 24 120/80 (93) 100 11/11/16 16:00 97 I/O 11/11/16 11/11/16 11/11/16 11/12/16 11/12/16 11/12/16 07:00 15:00 23:00 07:00 15:00 23:00 Intake Total 862 ml 100 ml 742 ml 280 ml Output Total 1050 ml 1000 ml 550 ml Balance -188 ml 100 ml -258 ml -270 ml IV Total 234 ml 100 ml 220 ml Tube Feeding 508 ml 592 ml Other 120 ml 150 ml 60 ml Output Urine Total 650 ml 600 ml 350 ml Stool Total 400 ml 400 ml 200 ml Laboratory Laboratory Tests Test 11/12/16 04:15 11/12/16 12:49 White Blood Count 7.7 Red Blood Count 3.02 Hemoglobin 9.6 Hematocrit 29.1 Mean Corpuscular Volume 96.4 Mean Corpuscular Hemoglobin 31.7 Mean Corpuscular Hemoglobin Concent 32.9 Red Cell Distribution Width 14.3 Platelet Count 345 Mean Platelet Volume 9.2 Neutrophils (%) (Auto) 47.7 Lymphocytes (%) (Auto) 23.7 Monocytes (%) (Auto) 6.9 Eosinophils (%) (Auto) 21.0 Basophils (%) (Auto) 0.7 Neutrophils # (Auto) 3.7 Lymphocytes # (Auto) 1.8 Monocytes # (Auto) 0.5 Eosinophils # (Auto) 1.6 Basophils # (Auto) 0.1 CBC Comment DIFF FINAL Differential Comment Prothrombin Time 12.0 Prothromb Time International Ratio 1.1 Activated Partial Thromboplast Time 25.8 Blood Urea Nitrogen 33 Creatinine 0.69 Random Glucose 99 Calcium Level 8.8 Sodium Level 149 150 Potassium Level 3.8 Chloride Level 113 Carbon Dioxide Level 29.9 Anion Gap 6 Estimat Glomerular Filtration Rate 119 Prealbumin 20 Date/Time Source Procedure Growth Status 11/06/16 20:48 Blood Peripheral Aerobic Blood Culture - Final NO GROWTH IN 5 DAYS Complete 11/06/16 20:48 Blood Peripheral Anaerobic Blood Culture - Final NO GROWTH IN 5 DAYS Complete 11/06/16 13:00 Sputum Endotracheal Gram Stain - Final Complete 11/06/16 13:00 Sputum Endotracheal Sputum Culture - Final HEAVY GROWTH NORMAL RESPIRATORY YOAN Complete 11/06/16 13:00 Urine Random Urine Urine Culture - Final <10,000 CFU/ML GRAM POSITIVE YOAN Complete Physical Exam HEENT: Pupils round and reactive to light; normocephalic; atraumatic; no jaundice. Throat is clear. Deformed head skull NECK: Neck is supple, no JVD, no lymphadenopathy. Trach in place CHEST: Chest is clear to auscultation and percussion. CARDIAC: Regular rate and rhythm with no murmur gallop or rubs. ABDOMEN: Soft, nondistended, nontender; no hepatosplenomegaly; bowel sounds are present in all four quadrants. EXTREMITIES: No clubbing, cyanosis, or edema. SKIN: Normal; no rash; no jaundice. 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 Assessment and Plan Plan ASSESSMENT - dysphagia - failed swallow eval. s/p trach. - anemia -HH stable - SDH s/p evacuation, subrachnoid hemorrhage s/p coiling per [facility] - acute hypoxid respiratory failure, on vent, per [facility] - pumonary HTN per [facility] 11/12/2016 we are planning on PEG tube today since the patient is having issue with feeding since the NG tube is out PLAN - EGD with PEG tube placement today - hold heparin until morning -Ancef 1 g was given - monitor labs - supportive care - further recs to follow Jeffry Cao MD Nov 12, 2016 15:40
[2016-11-12] MEDS: MELATONIN 5 MG TAB PO SCH (20:38)
[2016-11-13] VITALS (12 sets, daily range): BP systolic 112–141; BP diastolic 71–86; PULSE 86–108; RESP 16–29; TEMP 98.3–98.6; O2SAT 93–100
[2016-11-13] MEDS: CHLORHEXIDINE GLUCONATE 2 % 1 PACK (2 CLOTHS) TOP SCH (04:00)
[2016-11-13] MEDS: HEPARIN SODIUM - SQ 10,000 UNITS/ML VIAL SQ SCH ×3 (05:33→21:20)
[2016-11-13] MEDS: DILTIAZEM HCL 90 MG TAB PO SCH ×4 (05:33→22:37)
[2016-11-13] MEDS: CHLORHEXIDINE 0.12% (ORAL KIT) 15 ML CUP MT SCH ×2 (08:00→20:13)
[2016-11-13] MEDS: ARTIFICIAL TEARS OPTH SOLN 15 ML BTL EACH EYE SCH ×3 (08:38→17:29)
[2016-11-13] MEDS: LEVOFLOXACIN 750 MG TAB PO SCH (08:38)
[2016-11-13] MEDS: LACTOBACILLUS ACIDOPHILUS TAB PO SCH ×3 (08:38→17:29)
[2016-11-13] MEDS: LANSOPRAZOLE SOLUTAB 30 MG TAB NG SCH (08:38)
[2016-11-13] MEDS: FUROSEMIDE 40 MG/5 ML UNIT DOSE CUP NG SCH (08:38)
[2016-11-13] MEDS: FLUCONAZOLE 100 MG TAB PO SCH (08:38)
[2016-11-13] MEDS: levETIRAcetam 500 MG/5 ML UDC NG SCH ×2 (08:38→20:14)
[2016-11-13] MEDS: SODIUM CHLORIDE 0.9% FLUSH 10 ML FLUSH IV FLUSH SCH ×2 (08:38→20:13)
[2016-11-13] MEDS: BENEPROTEIN POWDER 1 PACK G-TUBE SCH ×3 (08:39→17:29)
--- NOTE | 2016-11-13 13:35 | HHI.GIFU ---
Subjective Remarks Resting in bed in no distress. Nurse reports patient was requesting to start his TF earlier. No active bleeding. (Ivanna Cevallos) Objective Vitals I&O Vital Signs Date Time Temp Pulse Resp B/P (MAP) Pulse Ox O2 Delivery O2 Flow Rate FiO2 11/13/16 12:00 98.6 92 16 141/81 (101) 100 11/13/16 12:00 92 11/13/16 08:02 98 T-piece 5.00 28 11/13/16 08:00 92 11/13/16 08:00 98.6 92 18 117/77 (90) 100 11/13/16 06:00 100 11/13/16 04:00 98.6 96 16 131/86 (101) 100 11/13/16 04:00 96 11/13/16 02:00 92 11/13/16 00:00 88 11/13/16 00:00 98.4 88 16 112/72 (85) 100 11/12/16 22:00 96 11/12/16 20:09 97 T-piece 5.00 28 11/12/16 20:00 99.0 90 18 130/74 (92) 100 11/12/16 20:00 90 11/12/16 16:00 99.1 101 16 148/81 (103) 100 11/12/16 16:00 101 I/O 11/12/16 11/12/16 11/12/16 11/13/16 11/13/16 11/13/16 07:00 15:00 23:00 07:00 15:00 23:00 Intake Total 280 ml 180 ml Output Total 550 ml 350 ml 250 ml Balance -270 ml -350 ml -70 ml IV Total 220 ml 0 ml Other 60 ml 180 ml Output Urine Total 350 ml 350 ml 250 ml Stool Total 200 ml 0 ml 0 ml Gastric Drainage Total 0 ml Laboratory Date/Time Source Procedure Growth Status 11/06/16 20:48 Blood Peripheral Aerobic Blood Culture - Final NO GROWTH IN 5 DAYS Complete 11/06/16 20:48 Blood Peripheral Anaerobic Blood Culture - Final NO GROWTH IN 5 DAYS Complete 11/06/16 13:00 Sputum Endotracheal Gram Stain - Final Complete 11/06/16 13:00 Sputum Endotracheal Sputum Culture - Final HEAVY GROWTH NORMAL RESPIRATORY YOAN Complete 11/06/16 13:00 Urine Random Urine Urine Culture - Final <10,000 CFU/ML GRAM POSITIVE YOAN Complete Imaging Last Impressions Chest X-Ray 11/11/16 0000 Signed Impressions: Service Date/Time: Friday, November 11, 2016 20:54 - CONCLUSION: Trace right base atelectasis. Yosvany Butler MD Abdomen X-Ray 10/21/16 0600 Signed Impressions: Service Date/Time: Friday, October 21, 2016 03:50 - CONCLUSION: 1. NGT in the stomach. 2. General paucity of small bowel gas. This finding is nonspecific and occasionally may reflect fluid-filled loops of bowel. Otherwise, no dilated bowel loops to suggest significant ileus or obstruction. Kev Vergara MD Transcranial Doppler Study Complete 10/20/16 0600 Signed Impressions: Service Date/Time: October 07:54 - CONCLUSION: Slight interval elevation of flow velocity measurements and ratio on the left Yosvany Polk MD Liver Ultrasound 10/19/16 0000 Signed Impressions: Service Date/Time: Wednesday, October 19, 2016 11:20 - CONCLUSION: 1. Sludge filled gallbladder with thickened wall. 2. Moderate size bilateral pleural effusions and mild upper abdominal ascites. Santos Vazquez MD Cerebral Arteriogram 10/19/16 0000 Signed Impressions: Service Date/Time: Wednesday, October 19, 2016 12:47 - CONCLUSION: Uncomplicated cerebral arteriography with spasmolytic therapy as described in detail above. Yosvany Polk MD Head CT 10/17/16 0000 Signed Impressions: Service Date/Time: Monday, October 17, 2016 15:06 - CONCLUSION: Ventricles are slightly larger without ventriculostomy. Edema in the left hemisphere the brain herniating through the operative site. Remington Woodward MD FACR Infusion Non-thrombolysis 10/14/16 1103 Signed Impressions: Service Date/Time: Friday, October 14, 2016 10:21 - CONCLUSION: 1. Uncomplicated infusion for spasmolysis Harvey Morejon MD Neck CTA 10/07/16 0000 Signed Impressions: Service Date/Time: Friday, October 07, 2016 15:03 - CONCLUSION: 1. Mild carotid bulb atherosclerotic calcification bilaterally. However, no significant stenosis is present in either internal carotid artery. 2. Paranasal sinus mucoperiosteal thickening. 3. Please refer to brain CTA report for description of the intracranial findings. Yosvany Ramirez MD Head CTA 10/07/16 0000 Signed Impressions: Service Date/Time: Friday, October 07, 2016 15:03 - CONCLUSION: 1. 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 2. Large left subdural hematoma measuring 1.3 cm in depth with a significant, 1.6 cm left to right subfalcine shift. Joni Shelton MD Physical Exam HEENT: Normocephalic; atraumatic; no jaundice. CHEST: Tracheostomy, to tbar, diminished CARDIAC: RRR ABDOMEN: Soft, nondistended, nontender; no hepatosplenomegaly; bowel sounds are present in all four quadrants. PEG tube site without redness or swelling EXTREMITIES: left 2nd digit, 4th right digit, and all tips of toes gangrenous/ dry [employer]AR EN[employer]GY CONSULTANT AND DESIGNER: Lethargic (Ivanna Cevallos) Assessment and Plan Plan ASSESSMENT - Dysphagia. S/P EGD with PEG tube placement (11/12/16)---> Mild duodenitis, PEG feeding tube was placed. Glucerna 1.5 @ 60 mls/hr goal - Duodenitis. Cont. PPI - Anemia. 9.6/29.1. - Left SDH, SAH S/P craniectomy, evacuation SDH/duraplasty. Going to have bone flap next week. S/P coiling by IR. - Acute hypoxic respiratory failure, ARDS, . S/P tracheostomy. On T bar - Pumonary HTN, SIADH, Electrolyte abnormalities. - Leukocytosis, bacteremia. - Digital ischemia, per [facility] PLAN - S/P EGD with peg tube placement - Glucerna 1.5 at 60cc/hr - Cont. Prevacid - Monitor labs - GI will sign off, please reconsult as needed - PT seen and examined by Dr. Cao and myself and this note is written on his behalf (Ivanna Cevallos) Plan Agree with above plan, okay to start feeding using the tube, we'll follow up as needed (Jeffry Cao MD) Ivanna Cevallos Nov 13, 2016 13:35 Jeffry Cao MD Nov 13, 2016 18:07
--- NOTE | 2016-11-13 14:19 | HHI.CCPN ---
Subjective Remarks/Hospital Course Note for 11/11/16: 10/07: 56-year-old male presents with intracranial bleed. Patient was transferred from [facility] at [facility]. As per the paramedics and the nurse who assisted the patient said that patient earlier this morning was coming down the stairs when he started feeling some left-sided weakness and numbness. He called 911 and by the time EMS arrived they detected some deficit and called a stroke alert. Patient was taken to [facility]. When patient arrived his mental status started to decline and he was intubated emergently in the ER. A CAT scan of the head showed subarachnoid and subdural bleed. He was taking emergently to an angio suite for coiling of the aneurysm and later on to OR for subdural hematoma evacuation. 10/08: Remains sedated, orally intubated on mechanical ventilation. Arouses off sedation and following commands with both upper extremities earlier. Ventriculostomy in place. ICP 7, CPP mid 80s. 10/09: Remains sedated, orally intubated on mechanical ventilation. Arouses off sedation and follows commands with both upper extremities. Ventriculostomy in place. 10/10: Remains sedated, orally intubated on mechanical ventilation. Arouses off sedation and follows commands and both upper extremities. Ventriculostomy in place. ICP 5. Failed C Pap trial yesterday. 10/11: Extubated on 10/10, tolerating well. Awake and alert. Appears confused, moving all 4 extremities. Ventriculostomy discontinued today by neurosurgery 10/13: Patient has developed severe vasospasm at the left MCA territory on TCD's that was treated with IV route verapamil 10/14: patient extubated overnight. was originally following commands and neuro intact. TCDs this morning with increase LIs over yesterday, particularly Left MCA territory. On my evaluation early this morning, patient was aphasic, not moving the right side of his body, not following commands. SBP 140s at that time. net 2L negative/24h and uop almost 1L/hr at the time. I immediately bolused with 2L NS iv, placed arterial and central lines, started phenylephrine , increased SBP to goal 200 - 220 mmHg. called interventional neuroradiology and accompanied patient down personally to IR for IA verapamil again. I remained with the patient managing his hemodynamics down in IR and providing anxiolysis IV. I accompanied patient back up to [facility] where patient again was neuro intact and following commands. Sodium downtrending to 135 and urine studies and serum osms suggestive of urine sodium losses and high uop. added Florinef to mitigate sodium losses, and increased mivf to 500cc/hr to maintain euvolemia. later in the day patient decompensated requiring intubation for hyoxemia, cxr suggestive of pulmonary edema. 2d echo with evidence of EF 40%, septal hypokinesis, moderate MR. On levo, vaso, phenylephrine. difficult to get to goal SBP 200 mmHg, likely due to myocardial dysfunction. decreased goal to 180 - 200 mmHg to balance cardiac vs. neurologic goals. 10/15 Patient was discussed with Dr. Sullivan at shift change. Isuprel was initiated in effort to improve cardiac output as dobutamine not available and concerned with use of milrinone given long half life. Systolic blood pressure was relatively stable with perhaps some modest improvement from 170s to 180s for several hours after initiation. Notified when patient became abruptly hypotensive despite vasopressin, levophed 20 mcg/min, Greyson-Synephrine 300 mcg/m. He was also hypoxemic with sats in 80s despite PCV with PEEP 8 and FiO2 100%, respiratory rate in the 30s. He had decreased breath sounds bilaterally and was concerned for air trapping so removed from mechanical ventilation and bagged without improvement. Placed patient back on mechanical ventilation and provide recruitment maneuvers and increased PEEP to 12 which resulted in improvement of sats to 88% to 92%. Ordered Flolan. Discontinued isuprel and initiated epinephrine. R radial art line would not draw blood . Performed u/s guided femoral artery stick to confirm hypoxemia on ABG given poor wave form on pulse ox and PaO2 was 58. Placed new L radial art line and this resulted in ~ 30 point increase in SBP relative to prior line but patient ultimately on vasopressin, levophed 30 micrograms per minute, Greyson-Synephrine 300 micrograms per minute, epinephrine 12 mcg/min and unable to maintain target pressure (SBP in 150s). Given calcium chloride. patient with shaking movements all extremities, pupils 2mm and sluggish, no eye deviation. Rigors seemed most likely but unable to emergently rule out seizures so loaded with fosphenytoin to avoid secondary injury from seizure activity. WBC increasing and concern for HCAP so pancultured and placed on cefepime, vancomycin, azithromycin. Hydrocortisone 100 mg IV every 8 hours initiated due to concern for septic shock in a patient who has been refractory to all other above measures. Patient is to hemodynamically unstable and hypoxic for transport for neurologic imaging. Urine output has declined to 180-200 ML's per hour. Back off maintenance IV fluids to 200 ML's per hour. Bedside echo demonstrates decreased LV function with normal RV contractility and collapsible IVC suggesting ongoing maintenance fluid administration is appropriate. 10/15 additional visit: continued to deteriorate throughout the day. Seen multiple times. hypoxic on 100% fio2, flolan. required nimbex drip to maintain. repeat bedside critical care ultrasound still demonstrates severe LV dysfunction , decompressed RV, IVC more dilated than previous echo overnight, however still with respiratory variation. femoral arterial line placed with better waveform and higher pressure (likely SVR too high to allow accurate measurement of radial pressure). Pulse contour analysis without stroke volume variation, CI 3.6. SV 52mL. trialed additional albumin without improvement in hemodynamics. uop slower than before, but still significant salt wasting in the urine- sodium dropped to 125 from 132 despite already on 3% nacl infusion and aggressive sodium replacements. forced to give 23% nacl and salt tabs. declining clinically despite maximal therapy. 10/16: continues to be maximally critically ill. LV dysfunction persists. starting to get volume overloaded, but given concern for ongoing cerebral vasospasm, unable to actively diurese patient. sodium wasting persists, but uop downtrending slightly. very hypokalemic today, likely due to steroids. remains intubated, sedated, paralyzed, on flolan. CXR today appears worse with worsening airspace disease. Lactate remains slightly elevated, confirming persistent shock. 10/17: Lung infiltrates dense bilaterally, reflected in shunting and problems with oxygenation. Developed vasospasm on TCDs and required angiogram and intra- arterial verapamil again today. 10/18: SBP 160 - 170 range. FiO2 0.55. BNP > 5000. Not tolerating attempts at maintaining higher BP due to worsening heart failure. Several episodes of vasospasm. Watch daily TCDs closely. Sputum no growth. 10/19: Tmax 99.8. Currently 99. Remains on 4 vasopressors and epoprostenol 10/20: Yesterday. Returned IR for intra-arterial calcium channel jose infusion for vasospasm. Transcranial Dopplers today Still pending. Remains on significant vasopressor support. 10/21: Good response to diuresis, check BNP. TCDs pending. Heart failure remains a major problem. 10/22: CVP 21 - 22, finger tips blue, digits pale white despite high dose milrinone dilation. Greyson and vaso much reduced. Will try diltiazem gtt for digital ischemia. Urine remains > 200/hr and proximal limbs are well perfused. This digital ischemia appears to be a local phenomenon ala Raynaud's. New subcutaneous emphysema right anterior chest wall. 10/23: Old CVL removed. Fingertips remain marginal, some necrotic despite diltiazem and milrinone treatment for digital ischemia. Cardiac output > 7 liters/min and urine copious, confirming good perfusion pressure and flow. This continues to be a local phenomenon of the digits ala Raynaud's. We are trying to wean vasopressors off but are required to maintaining a cerebral perfusion pressure suitable for the treatment of aneurysmal subarachnoid bleed. Frankly, the importance of brain function eclipses fingertips. 10/24: Afebrile. Well perfused except for index finger left hand, few tips fingers right. Arms and hands warmer with resolving circumferential edema. Diltiazem and milrinone gtt continue. Greyson to 10 mics/min. 10/25: Digits are warm and well perfused except left index and right 4th fingertips; demarcated and not viable. Dry. Diltiazem and milrinone infusions continue to help reverse digital ischemia. 10/26: Forced diuresis continues and BP remains nicely elevated. Hands and digits warm aside from left index and right 4th fingertips which have demarcated. 10/27: Good response to diuretics. Perfusion pressure and documented flow excellent. Continue to wean vent. 10/28: Start SBTs. Fluid balance back toward normal. 10/29: Tolerating SBTs. Lowering sedation. Edema resolving. 10/30: Tolerating tube feeds, will taper off TPN and remove central line. Continue diuretics. 10/31: net -3L over 24h. mental status at baseline. tolerating CPAP, but does not have the mental status to protect airway. will likely need trach/peg. placement will be a problem due to lack of funding. 11/01: no changes or improvements. discussed with yesterday and she "does not want any more setbacks" and would prefer trach versus trial of extubation. I agree with her assessment. plan for trach today. placement is still a significant problem. net -2L/24h. 11/02: wbc uptrending, febrile. antonio cultured, started empiric abx today. failed SBT overnight and placed back on rate. 11/03: Tolerating CPAP today, following commands. Low-grade fever cultures pending. WBC count normal today 11/04: Remains on TPs since yesterday. Neuro exam remains stable. Follows commands weakly. Na 152 11/05: Remains off vent for 48 hours now. Sitting up in stretcher chair today. Na improved to 149. remains weak but improving 11/06: Continues to tolerate TPs well. Neuro exam unchanged. Sodium 148 today. Continues to spike intermittent fever Tmax 102.7. 11/07: Continued fevers, no leukocytosis. 11/08: Stable for replacement of bone flap. 11/09: Getting a bit excessively diuresed, will decrease lasix and convert to PO. Fingertips and toes demarcating as expected. No immediate action required except for continued diltiazem therapy. Clearly a Raynaud's type digital ischemia as peripheral perfusion and urine output indicated excellent peripheral perfusion. 11/10: Tracks with eyes today, nods to questions. Failed swallow again. 11/11: Plan for PEG, GI consulted. Bone flap replacement on hold due to blood cultures and fever. 11/12: May get PEG today, Bone flap to be replaced coming week per Dr. Perry. Afebrile no white count 11/13: Neuro exam unchanged. Na was 150 yesterday, repeat CMP pending. Left flap remains sunken Objective Vital Signs Date Time Temp Pulse Resp B/P (MAP) Pulse Ox O2 Delivery O2 Flow Rate FiO2 11/13/16 12:00 98.6 92 16 141/81 (101) 100 11/13/16 08:02 T-piece 5.00 28 Intake and Output 11/13/16 11/13/16 11/14/16 08:00 16:00 00:00 Intake Total 180 ml Output Total 250 ml Balance -70 ml Result Diagram: 11/12/16 0415 11/12/16 1249 Imaging Last Impressions Chest X-Ray 10/20/16 0000 Signed Impressions: Service Date/Time: October 03:47 - CONCLUSION: 1. Stable tubes and lines. 2. Stable bilateral lower lung zone airspace disease. 3. Stable small right pleural effusion. 4. No significant interval change. Kev Vergara MD Transcranial Doppler Study Complete 10/19/16 0600 Signed Impressions: Service Date/Time: Wednesday, October 19, 2016 08:02 - CONCLUSION: Suspect developing right MCA vasospasm Yosvany Polk MD Liver Ultrasound 10/19/16 0000 Signed Impressions: Service Date/Time: Wednesday, October 19, 2016 11:20 - CONCLUSION: 1. Sludge filled gallbladder with thickened wall. 2. Moderate size bilateral pleural effusions and mild upper abdominal ascites. Santos Vazquez MD Head CT 10/17/16 0000 Signed Impressions: Service Date/Time: Monday, October 17, 2016 15:06 - CONCLUSION: Ventricles are slightly larger without ventriculostomy. Edema in the left hemisphere the brain herniating through the operative site. Remington Woodward MD FACR Cerebral Arteriogram 10/17/16 0000 Signed Impressions: Service Date/Time: Monday, October 17, 2016 00:00 - CONCLUSION: 1. Uncompensated spasmolysis of the left middle cerebral artery Harvey Morejon MD Infusion Non-thrombolysis 10/14/16 1103 Signed Impressions: Service Date/Time: Friday, October 14, 2016 10:21 - CONCLUSION: 1. Uncomplicated infusion for spasmolysis Harvey Morejon MD Neck CTA 10/07/16 0000 Signed Impressions: Service Date/Time: Friday, October 07, 2016 15:03 - CONCLUSION: 1. Mild carotid bulb atherosclerotic calcification bilaterally. However, no significant stenosis is present in either internal carotid artery. 2. Paranasal sinus mucoperiosteal thickening. 3. Please refer to brain CTA report for description of the intracranial findings. Yosvany Ramirez MD Head CTA 10/07/16 0000 Signed Impressions: Service Date/Time: Friday, October 07, 2016 15:03 - CONCLUSION: 1. 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 2. Large left subdural hematoma measuring 1.3 cm in depth with a significant, 1.6 cm left to right subfalcine shift. Joni Shelton MD Objective Remarks GENERAL: 56-year-old male. More alert. HEAD: Status post left craniectomy. Left flap sunken, Incision healing well EYES: About 3 mm bilaterally and reactive NECK: Trachea midline. 8.0 Shiley cuffed trach, site clean, dry. CARDIOVASCULAR: S1-S2 normal no murmurs RESPIRATORY: Diminished breath sounds bilateral lower lobes. Strong respiratory effort on collar. GASTROINTESTINAL: Abdomen soft, non-tender, nondistended. BS active. MUSCULOSKELETAL: Ischemic changes worst to left index finger tip, right 4th fingertip, and majority of R toes. Demarcating, dry, should autoamputate. NEURO EXAM: Opens eyes and follows command, right UE weaker than left, follows commands x4. Mouthing words Procedures 10/13 Four-vessel cerebral angiography with verapamil treatment of vasospasm A/P Assessment and Plan Neuro/Psych Status post left frontotemporal parietal craniectomy 10/08 for evacuation subdural hematoma/duraplasty Left subdural hematoma - 1.3 cm with 1.6 shift left to right Subarachnoid hemorrhage Alvarado and Rodriguez 5, Carroll grade 4 - left P-comm status post 4 coiling 10/08 - Nimodipine completed 21 days. Initiated 10/13. - Levetiracetam 500 mg per tube twice a day with phenytoin 100mg per tube q8h. Dilantin discontinued due to fever - 10/13 and 10/14 and 10/17) 10/19 left MCA territory vasospasm, status post successful verapamil treatment by IR with 20 mg verapamil - SBP goal now <140. - 10/17 CT brain - less hemisphere edema with herniation through left craniotomy site - Dr. Perry/neurosurgery. Plan to replace bone flap this week. Cleared by ID Respiratory: Acute hypoxic Respiratory failure-ARDS- resolved Noncardiogenic/neurogenic pulmonary edema -- Nebs, HOB at 30 degrees. Remains on TP several days -- Albuterol/Atrovent every 6 hours with albuterol aerosols every 2 hours for Dyspnea -- continue TP 24/7 as tolerated. Up to stretcher chair daily -- s/p Trach Dr. Sullivan/Dr. Collazo 11/01 Cardiovascular: Septic and cardiogenic shock- resolved. LV dysfunction secondary to SAH - persistent, now resolved Elevated troponin- secondary to SAH, unlikely to be ACS. - resolved. Pulmonary hypertension Continue diuresis. Na elevated, but did not get free water due to PEG tube placement 11/12 Echocardiogram 10/14/16 revealed EF 40-45%. Septal hypokinesis. Moderate MR. Severe pulmonary hypertension with pulmonary artery pressures estimated 61 mmHg Limited Echo 11/06: LVEF 60-65%, Trivial mitral and tricuspid regurgitation, No vegetations noted. Renal: Cerebral Salt Wasting/SIADH-resolved now hypernatremic Strict I/Os. See FEN below. Creatinine currently within normal limits -> resolved. Re check Na at noon FEN/GI: Severe hyponatremia-resolved now hypernatremic Hypokalemia Elevated transaminases Hyperammonemia - DCd sodium chloride 3gm po TID 11/04 - Half-normal saline for 24 hours completed; continue free water 250 mL 4 times a day-did not get for 24 hrs, was NPO for PEG - ICU electrolyte protocol. aggressively replace potassium losses. - Lansoprazole 30 mg by tube daily for GI prophylaxis - Docusate sodium 100 mg twice a day, senna liquid 8.6 mg twice a day and polyethylene glycol 3350 17 g twice a day for bowel regimen - Lactulose 30 cc QID. ammonia 46 on 10/31, 37 on 11/04 - NPO per speech, Continue NGT feeding, Failed swallow eval again 11/11. s/p PEG 11/12/16 Heme/ID: Septic Shock- resolved. Possible HCAP New Fever, leukocytosis, staph epi bacteremia - limited Echo to evaluate vegetation-neg. DCd Dilantin. ID following, cleared for bone flap replacement - Digital Ischemia with necrosis, conservative management - s/p Diltiazem and milrinone infusions - Digits have demarcated, allow auto amputation. Cardizem PO (for digital ischemia, Raynaud's) Pertinent cultures 10/15 - blood cultures - 1 out of 4 anaerobic gram-negative cocci possibly Veillonella 10/15 - sputum - beta strep not A, strep species 10/19 cultures NG 10/21 1/4 bottles blood cultures coag negative staph. Culture 11/01. coag neg stah 03/19 bottles Current ABX Levaquin x 7 days end 11/15/16 Diflucan duration per ID (started 11/06/16) Endocrine: Presumed Adrenal Insufficiency Discontinued fludrocortisone 10/18. Monitor sodium 6 hours. Sliding-scale insulin with NovoLog -Accu-Cheks every 4 hours to maintain euglycemia d/cd Levemir bid. Taper off cortisone -> done Prophylaxis: GI Prophylaxis - lansoprazole DVT Prophylaxis-- SCDs, heparin subcutaneous Lines: - 10/14 right SC TLC, removed 10/22 - 10/14 right radial art line, removed 10/14 - 10/15 left radial art line, removed 10/16 - 10/15 left femoral art line - 10/22 left groin triple lumen placed, d/c 10/30 - d/c ramires. Overall impression: No change. The patient's digital ischemia developed when he had a cardiac output over 8.0 liters/min, CVP was over 20 mm Hg, and urine over 75 ml/hr for many days. BNP was elevated at 777. His hands and feet were warm but the fingers and toes became cold, white, nearly cadaveric. Greyson synephrine was only vasopressor and it was at 30 units/min only. We stopped it immediately and started milrinone and cardizem iv infusions. Most fingers and toes responded well to the vascular dilators but a few digits demarcated and became necrotic. Anticoagulation was not an option in face of recent aneurysm rupture and gastritis. Patients with this degree of digital ischemia (severe Raynaud's) usually have an underlying illness such as malignancy, mixed connective tissue disorder, collagen vascular disease, rheumatoid disease, etc. This workup can progress after he has cleared exogenous steroids which were just stopped. He's in a pretty revved up inflammatory state now and the lab values will be altered by it. Overall impression: Stable for replacement of bone flap, cleared by ID. s/p PEG. Digit tips remain dry; allow to autoamputate. If hypernatremia improves, can transfer to neuro floor Harvey Bar MD Nov 13, 2016 14:19
[2016-11-13 17:22] LABS: ANION GAP 31 MEQ/L (5-15); AST (GOT) 16 U/L (15-37); BICARBONATE LESS THAN 1.0 MEQ/L (21.0-32.0); BLOOD UREA NITROGEN LESS THAN 1 MG/DL (7-18); CHLORIDE 113 MEQ/L (98-107); GLOMERULAR FILTRATION RATE 104 ML/MIN (>89); POTASSIUM 4.1 MEQ/L (3.5-5.1); SODIUM (NA) 145 MEQ/L (136-145)
[2016-11-13 17:23] LABS: ALT (GPT) 42 U/L (12-78)
[2016-11-13 17:25] LABS: ALKALINE PHOSPHATASE 131 U/L (45-117); TOTAL BILIRUBIN ADULT 0.3 MG/DL (0.2-1.0)
[2016-11-13] MEDS: RESP: ALBUTEROL 2.5 MG/3 ML NEB (PRN) INH (20:13)
[2016-11-13] MEDS: MELATONIN 5 MG TAB PO SCH (20:14)
[2016-11-13 21:59] LABS: ALT (GPT) 43 U/L (12-78); ANION GAP 7 MEQ/L (5-15); AST (GOT) 12 U/L (15-37); BICARBONATE 24.9 MEQ/L (21.0-32.0); BLOOD UREA NITROGEN 37 MG/DL (7-18); CHLORIDE 114 MEQ/L (98-107); GLOMERULAR FILTRATION RATE 97 ML/MIN (>89); POTASSIUM 4.4 MEQ/L (3.5-5.1); SODIUM (NA) 146 MEQ/L (136-145)
[2016-11-13 22:01] LABS: ALKALINE PHOSPHATASE 142 U/L (45-117); TOTAL BILIRUBIN ADULT 0.3 MG/DL (0.2-1.0)
[2016-11-13] MEDS: ACETAMINOPHEN 325 MG TAB PO PRN (22:37)
[2016-11-14] VITALS (15 sets, daily range): BP systolic 107–119; BP diastolic 69–93; PULSE 88–114; RESP 18–28; TEMP 98.3–102.5; O2SAT 94–97
[2016-11-14] MEDS: CHLORHEXIDINE GLUCONATE 2 % 1 PACK (2 CLOTHS) TOP SCH (03:07)
[2016-11-14] MEDS: ACETAMINOPHEN 325 MG TAB PO PRN (03:07)
[2016-11-14 04:46] LABS: ANION GAP 8 MEQ/L (5-15); AST (GOT) 10 U/L (15-37); BICARBONATE 25.7 MEQ/L (21.0-32.0); CHLORIDE 113 MEQ/L (98-107); GLOMERULAR FILTRATION RATE 88 ML/MIN (>89); POTASSIUM 4.6 MEQ/L (3.5-5.1); SODIUM (NA) 147 MEQ/L (136-145)
[2016-11-14 04:49] LABS: ALKALINE PHOSPHATASE 134 U/L (45-117); ALT (GPT) 38 U/L (12-78); TOTAL BILIRUBIN ADULT 0.3 MG/DL (0.2-1.0)
[2016-11-14 04:51] LABS: BLOOD UREA NITROGEN 41 MG/DL (7-18)
[2016-11-14 04:52] LABS: AUTOMATED NEUTROPHIL # 7.1 TH/MM3 (1.8-7.7); BASOPHIL # 0.1 TH/MM3 (0-0.2); BASOPHIL % 0.7 % (0.0-2.0); EOSINOPHIL # 0.5 TH/MM3 (0-0.4); EOSINOPHIL % 4.5 % (0.0-4.0); HEMATOCRIT 36.2 % (39.0-51.0); HEMO FLAGS DIFF FINAL; LYMPH % 22.1 % (9.0-44.0); LYMPHOCYTE # 2.2 TH/MM3 (1.0-4.8); MEAN CELL VOLUME 96.1 FL (80.0-100.0); MEAN CORPUSCULAR HEMOGLOBIN 32.1 PG (27.0-34.0); MEAN CORPUSCULAR HGB CONC 33.4 % (32.0-36.0); MONO % 2.4 % (0.0-8.0); NEUT % 70.3 % (16.0-70.0); PLATELET COUNT 438 TH/MM3 (150-450); RED BLOOD COUNT 3.77 MIL/MM3 (4.50-5.90); RED CELL DISTRIBUTION WIDTH 14.5 % (11.6-17.2); WHITE BLOOD COUNT 10.2 TH/MM3 (4.0-11.0)
[2016-11-14] MEDS: DILTIAZEM HCL 90 MG TAB PO SCH ×4 (05:00→23:33)
[2016-11-14] MEDS: CHLORHEXIDINE 0.12% (ORAL KIT) 15 ML CUP MT SCH ×2 (08:37→21:16)
[2016-11-14] MEDS: ARTIFICIAL TEARS OPTH SOLN 15 ML BTL EACH EYE SCH ×3 (08:38→18:00)
[2016-11-14] MEDS: SODIUM CHLORIDE 0.9% FLUSH 10 ML FLUSH IV FLUSH SCH ×2 (08:38→21:16)
[2016-11-14] MEDS: BENEPROTEIN POWDER 1 PACK G-TUBE SCH ×3 (08:38→18:00)
[2016-11-14] MEDS: LANSOPRAZOLE SOLUTAB 30 MG TAB NG SCH (08:39)
[2016-11-14] MEDS: LEVOFLOXACIN 750 MG TAB PO SCH (08:39)
[2016-11-14] MEDS: levETIRAcetam 500 MG/5 ML UDC NG SCH ×2 (08:39→21:16)
[2016-11-14] MEDS: FLUCONAZOLE 100 MG TAB PO SCH (08:39)
[2016-11-14] MEDS: LACTOBACILLUS ACIDOPHILUS TAB PO SCH ×3 (08:40→18:11)
[2016-11-14] MEDS: FUROSEMIDE 40 MG/5 ML UNIT DOSE CUP NG SCH (08:40)
--- NOTE | 2016-11-14 11:19 | HHI.IDPN ---
Subjective Subjective Remarks Patient is a 56-year-old male, initially admitted at [facility] after he developed acute onset of left-sided weakness and numbness. In [facility] emergency room his mental status deteriorated, and he required intubation. CT of the head showed subarachnoid bleed. He was transferred to [facility] for neurosurgical evaluation and treatment. Patient underwent angiogram and coiling of his aneurysm. He also underwent emergency surgery and had left frontal temporal parietal decompressive craniectomy, duraplasty, and evacuation of a subdural hematoma. He had a ezio hole and the ventriculostomy placement. His hospitalization was complicated by significant vasospasm of his cerebral arteries, and he had multiple angiogram and treatment of the vasospasm. He also had problem with significant LV dysfunction in both volume overload. His had hyponatremia that has been treated and corrected. He initially started having fevers and some clinical deterioration as far as infection around the first week of October. He had a sputum culture that had pneumococcus, beta- hemolytic strep and Haemophilus. He had one out of 2 blood culture that had anaerobic gram-negative cocci. He was on antibiotics up until October 23. Patient also required significant amount of pressors to maintain an adequate blood pressure to ensure cerebral perfusion. 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 Patient eventually underwent tracheostomy for his continued respiratory requirement, and had this procedure done November 01. Patient currently has been doing quite well and not requiring ventilatory support, and on T piece. Starting November 02 he started having fevers again as well as increased WBC. Repeat cultures at that time grew 2 blood cultures that had coag-negative staph. His central lines have been removed. Patient also has had liquid stool, but C. difficile is negative. Urinalysis done was unremarkable. Patient was started back on antibiotics on November 02 and has been on cefepime and IV vancomycin. He continues to have fevers. His WBC has been down to normal. His last chest x- ray yesterday showing stable infiltrates. He has no central line. He has a Maldonado catheter in place. He has an NG tube and gets tube feedings. Infectious disease consultation has been requested to evaluate the patient for persistent fevers. Notes reviewed D/W RN Spiked to 102 at 4 am Vomited today On T-piece S/P PEG 11/11 TF decrease to 10 ml/ghr after the vomiting Not a lot of residual Has loose stool BC negative WBC normal UA ok Sputum normal slim Antibiotics Levaquin Diflucan Lines PIV Past Medical History Hypertension Past Surgical History Status post trach Status post craniectomy for evacuation of subdural hematoma Allergies: Coded Allergies: No Known Allergies (Unverified , 05/06/16) Objective . Vital Signs Date Time Temp Pulse Resp B/P (MAP) Pulse Ox O2 Delivery O2 Flow Rate FiO2 11/14/16 10:00 100 11/14/16 08:04 101 11/14/16 08:00 99.3 101 22 113/93 (100) 95 11/14/16 07:46 96 T-piece 28 11/14/16 07:00 96 T-Piece 5.00 28 11/14/16 06:00 106 11/14/16 04:00 112 11/14/16 04:00 102.5 112 28 119/79 (92) 96 11/14/16 03:39 96 T-piece 28 11/14/16 02:00 104 11/14/16 00:00 114 11/14/16 00:00 101.0 114 18 109/73 (85) 97 11/13/16 22:00 108 11/13/16 20:24 93 T-piece 10.00 50 11/13/16 20:00 88 11/13/16 20:00 98.6 88 29 126/84 (98) 100 11/13/16 19:00 100 T-Piece 5.00 28 11/13/16 18:00 86 11/13/16 16:00 92 11/13/16 16:00 98.3 92 16 127/71 (89) 100 11/13/16 12:00 98.6 92 16 141/81 (101) 100 11/13/16 12:00 92 11/14/16 11/14/16 11/15/16 15:00 23:00 07:00 Output Total 0 ml Balance 0 ml Tube Feeding Residual Discard 0 ml . Laboratory Tests Test 11/14/16 04:01 White Blood Count 10.2 TH/MM3 Red Blood Count 3.77 MIL/MM3 Hemoglobin 12.1 GM/DL Hematocrit 36.2 % Mean Corpuscular Volume 96.1 FL Mean Corpuscular Hemoglobin 32.1 PG Mean Corpuscular Hemoglobin Concent 33.4 % Red Cell Distribution Width 14.5 % Platelet Count 438 TH/MM3 Mean Platelet Volume 9.4 FL Neutrophils (%) (Auto) 70.3 % Lymphocytes (%) (Auto) 22.1 % Monocytes (%) (Auto) 2.4 % Eosinophils (%) (Auto) 4.5 % Basophils (%) (Auto) 0.7 % Neutrophils # (Auto) 7.1 TH/MM3 Lymphocytes # (Auto) 2.2 TH/MM3 Monocytes # (Auto) 0.2 TH/MM3 Eosinophils # (Auto) 0.5 TH/MM3 Basophils # (Auto) 0.1 TH/MM3 CBC Comment DIFF FINAL Differential Comment Laboratory Tests Test 11/12/16 12:49 11/13/16 16:40 11/13/16 21:35 11/14/16 04:01 Sodium Level 150 MEQ/L 145 MEQ/L 146 MEQ/L 147 MEQ/L Blood Urea Nitrogen LESS THAN 1 MG/DL 37 MG/DL 41 MG/DL Creatinine 0.78 MG/DL 0.83 MG/DL 0.90 MG/DL Random Glucose 104 MG/DL 114 MG/DL 119 MG/DL Total Protein 6.8 GM/DL 7.0 GM/DL 6.6 GM/DL Albumin 2.0 GM/DL 2.1 GM/DL 2.1 GM/DL Calcium Level 8.7 MG/DL 8.7 MG/DL 8.3 MG/DL Alkaline Phosphatase 131 U/L 142 U/L 134 U/L Aspartate Amino Transf (AST/SGOT) 16 U/L 12 U/L 10 U/L Alanine Aminotransferase (ALT/SGPT) 42 U/L 43 U/L 38 U/L Total Bilirubin 0.3 MG/DL 0.3 MG/DL 0.3 MG/DL Potassium Level 4.1 MEQ/L 4.4 MEQ/L 4.6 MEQ/L Chloride Level 113 MEQ/L 114 MEQ/L 113 MEQ/L Carbon Dioxide Level LESS THAN 1.0 MEQ/L 24.9 MEQ/L 25.7 MEQ/L Anion Gap 31 MEQ/L 7 MEQ/L 8 MEQ/L Estimat Glomerular Filtration Rate 104 ML/MIN 97 ML/MIN 88 ML/MIN Imaging Last Impressions Chest X-Ray 11/11/16 0000 Signed Impressions: Service Date/Time: Friday, November 11, 2016 20:54 - CONCLUSION: Trace right base atelectasis. Yosvany Butler MD Abdomen X-Ray 10/21/16 0600 Signed Impressions: Service Date/Time: Friday, October 21, 2016 03:50 - CONCLUSION: 1. NGT in the stomach. 2. General paucity of small bowel gas. This finding is nonspecific and occasionally may reflect fluid-filled loops of bowel. Otherwise, no dilated bowel loops to suggest significant ileus or obstruction. Kev Vergara MD Transcranial Doppler Study Complete 10/20/16 0600 Signed Impressions: Service Date/Time: October 07:54 - CONCLUSION: Slight interval elevation of flow velocity measurements and ratio on the left Yosvany Polk MD Liver Ultrasound 10/19/16 0000 Signed Impressions: Service Date/Time: Wednesday, October 19, 2016 11:20 - CONCLUSION: 1. Sludge filled gallbladder with thickened wall. 2. Moderate size bilateral pleural effusions and mild upper abdominal ascites. Santos Vazquez MD Cerebral Arteriogram 10/19/16 0000 Signed Impressions: Service Date/Time: Wednesday, October 19, 2016 12:47 - CONCLUSION: Uncomplicated cerebral arteriography with spasmolytic therapy as described in detail above. Yosvany Polk MD Head CT 10/17/16 0000 Signed Impressions: Service Date/Time: Monday, October 17, 2016 15:06 - CONCLUSION: Ventricles are slightly larger without ventriculostomy. Edema in the left hemisphere the brain herniating through the operative site. Remington Woodward MD FACR Infusion Non-thrombolysis 10/14/16 1103 Signed Impressions: Service Date/Time: Friday, October 14, 2016 10:21 - CONCLUSION: 1. Uncomplicated infusion for spasmolysis Harvey Morejon MD Neck CTA 10/07/16 0000 Signed Impressions: Service Date/Time: Friday, October 07, 2016 15:03 - CONCLUSION: 1. Mild carotid bulb atherosclerotic calcification bilaterally. However, no significant stenosis is present in either internal carotid artery. 2. Paranasal sinus mucoperiosteal thickening. 3. Please refer to brain CTA report for description of the intracranial findings. Yosvany Ramirez MD Head CTA 10/07/16 0000 Signed Impressions: Service Date/Time: Friday, October 07, 2016 15:03 - CONCLUSION: 1. 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 2. Large left subdural hematoma measuring 1.3 cm in depth with a significant, 1.6 cm left to right subfalcine shift. Joni Shelton MD Chest X-Ray 11/05/16 0600 Signed Impressions: Service Date/Time: Saturday, November 05, 2016 04:39 - CONCLUSION: Persistent non-consolidative infiltrates in the medial lower lungs. Santos Vazquez MD Abdomen X-Ray 10/21/16 0600 Signed Impressions: Service Date/Time: Friday, October 21, 2016 03:50 - CONCLUSION: 1. NGT in the stomach. 2. General paucity of small bowel gas. This finding is nonspecific and occasionally may reflect fluid-filled loops of bowel. Otherwise, no dilated bowel loops to suggest significant ileus or obstruction. Kev Vergara MD Transcranial Doppler Study Complete 10/20/16 0600 Signed Impressions: Service Date/Time: October 07:54 - CONCLUSION: Slight interval elevation of flow velocity measurements and ratio on the left Yosvany Polk MD Liver Ultrasound 10/19/16 0000 Signed Impressions: Service Date/Time: Wednesday, October 19, 2016 11:20 - CONCLUSION: 1. Sludge filled gallbladder with thickened wall. 2. Moderate size bilateral pleural effusions and mild upper abdominal ascites. Santos Vazquez MD Cerebral Arteriogram 10/19/16 0000 Signed Impressions: Service Date/Time: Wednesday, October 19, 2016 12:47 - CONCLUSION: Uncomplicated cerebral arteriography with spasmolytic therapy as described in detail above. Yosvany Polk MD Head CT 10/17/16 0000 Signed Impressions: Service Date/Time: Monday, October 17, 2016 15:06 - CONCLUSION: Ventricles are slightly larger without ventriculostomy. Edema in the left hemisphere the brain herniating through the operative site. Remington Woodward MD FACR Infusion Non-thrombolysis 10/14/16 1103 Signed Impressions: Service Date/Time: Friday, October 14, 2016 10:21 - CONCLUSION: 1. Uncomplicated infusion for spasmolysis Harvey Morejon MD Neck CTA 10/07/16 0000 Signed Impressions: Service Date/Time: Friday, October 07, 2016 15:03 - CONCLUSION: 1. Mild carotid bulb atherosclerotic calcification bilaterally. However, no significant stenosis is present in either internal carotid artery. 2. Paranasal sinus mucoperiosteal thickening. 3. Please refer to brain CTA report for description of the intracranial findings. Yosvany Ramirez MD Head CTA 10/07/16 0000 Signed Impressions: Service Date/Time: Friday, October 07, 2016 15:03 - CONCLUSION: 1. 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 2. Large left subdural hematoma measuring 1.3 cm in depth with a significant, 1.6 cm left to right subfalcine shift. Joni Shelton MD Physical Exam GENERAL: awake and alert, NAD, on T-piece SKIN: Warm and dry. Rash better. HEAD: Incision healing with several areas that have eschar, no drainage, no redness EYES: [place] conjunctiva. No petechia or hemorrhage. No scleral icterus. No injection or drainage. EARS, NOSE AND THROAT: Nose without bleeding or purulent nasal discharge. No sinus tenderness. Slightly dry oral mucosa NECK: Trachea midline. Supple and not tender, no meningeal signs. Trach site ok CARDIOVASCULAR: Regular rate and rhythm. No murmurs, rubs or gallops heard RESPIRATORY: Scattered rhonchi ABDOMEN: Soft, non-tender, nondistended. Bowel sounds present and normoactive. No guarding. No rebound. No organomegaly. EXTREMITIES: No clubbing, has mild pedal edema. Has dry gangrene LIF and R ring finger. All his toes have dry gangrene. No calf tenderness. Well perfused and warm. NEUROLOGICAL: Awake and alert. Mild facial asymmetry. Weak in all extremities PSYCHIATRIC: Normal affect, calm and cooperative. LINE: PIV with no evidence of infection Assessment & Plan Remarks IMPRESSION Persistent fevers since 11/02, WBC has improved - temps better - ?drug - UA 11/02 ok, has condom cath - no lines - diarrhea, C diff negative - has rash, ?fever due to Abx, ?Dilantin 2 BC with 2 different Coag Neg Staph, ?real, no lines now - last line removed 10/30 - ?contaminant S/P coiling aneurysm S/P craniectomy, decompression, evacuation of SDH Respiratory failure, S/P trach, on T-piece Rash likely drug eruption, ?Abx - B-lactam, ?Dilantin LV dysfunction Recurrent fevers, etiology? Vomiting RECOMMENDATION Levaquin x 7 days - to finish today Also on Diflucan 2 BC today UA and C/S Monitor temps Monitor for recurrent vomiting CXR Monitor progress D/W Mitra Sears MD Nov 14, 2016 11:19
[2016-11-14 13:01] LABS: BLOOD, URINE SMALL (NEG); CALCIUM OXALATE CRYSTALS,URINE RARE /hpf; COMMENT (UR) CULT NOT INDICATED; CULTURE IF INDICATED CULT NOT INDICATED; GLUCOSE,URINE NEG (NEG); HYALINE CAST, URINE 1 /lpf (RARE); KETONE, URINE NEG (NEG); MUCUS URINE FEW /lpf (OCC); NITRITE,URINE NEG (NEG); PH, URINE 5.5 (5.0-8.5); SQUAMOUS EPITHELIAL CELL URINE 3 /hpf (0-5); URINE COLOR YELLOW (YELLW/STRAW)
[2016-11-14 13:03] LABS: BACTERIA, URINE RARE /hpf
--- NOTE | 2016-11-14 13:20 | RADRPT ---
EXAM DATE/TIME: 11/14/2016 12:12 [place] COMPARISON: CHEST SINGLE AP, November 11, 2016, 20:54. INDICATIONS : Fever and short of breath. MEDICAL HISTORY : Seizures. Subarachnoid hemorrhage. Hypertension SURGICAL HISTORY : Left craniotomy. Ventriculostomy catheter ENCOUNTER: Subsequent ACUITY: 1 month PAIN SCORE: 0/10 LOCATION: Bilateral chest FINDINGS: Stable tracheostomy in place. Interval develop of bilateral patchy lower lung zone airspace disease a nd small left pleural effusion. Cardiomediastinal contours are stable. Remainder of the exam is uncha nged. CONCLUSION: 1. Interval development of patchy bilateral lower lung zone airspace disease and small left pleural e ffusion. Findings are concerning for aspiration. Kev Vergara MD on November 14, 2016 at 13:17 Board Certified Radiologist. This report was verified electronically.
[2016-11-14] MEDS: FREE WATER G-TUBE SCH ×2 (18:45→23:33)
--- NOTE | 2016-11-14 18:48 | HHI.CCPN ---
Subjective Remarks/Hospital Course Note for 11/11/16: 10/07: 56-year-old male presents with intracranial bleed. Patient was transferred from [facility] at [facility]. As per the paramedics and the nurse who assisted the patient said that patient earlier this morning was coming down the stairs when he started feeling some left-sided weakness and numbness. He called 911 and by the time EMS arrived they detected some deficit and called a stroke alert. Patient was taken to [facility]. When patient arrived his mental status started to decline and he was intubated emergently in the ER. A CAT scan of the head showed subarachnoid and subdural bleed. He was taking emergently to an angio suite for coiling of the aneurysm and later on to OR for subdural hematoma evacuation. 10/08: Remains sedated, orally intubated on mechanical ventilation. Arouses off sedation and following commands with both upper extremities earlier. Ventriculostomy in place. ICP 7, CPP mid 80s. 10/09: Remains sedated, orally intubated on mechanical ventilation. Arouses off sedation and follows commands with both upper extremities. Ventriculostomy in place. 10/10: Remains sedated, orally intubated on mechanical ventilation. Arouses off sedation and follows commands and both upper extremities. Ventriculostomy in place. ICP 5. Failed C Pap trial yesterday. 10/11: Extubated on 10/10, tolerating well. Awake and alert. Appears confused, moving all 4 extremities. Ventriculostomy discontinued today by neurosurgery 10/13: Patient has developed severe vasospasm at the left MCA territory on TCD's that was treated with IV route verapamil 10/14: patient extubated overnight. was originally following commands and neuro intact. TCDs this morning with increase LIs over yesterday, particularly Left MCA territory. On my evaluation early this morning, patient was aphasic, not moving the right side of his body, not following commands. SBP 140s at that time. net 2L negative/24h and uop almost 1L/hr at the time. I immediately bolused with 2L NS iv, placed arterial and central lines, started phenylephrine , increased SBP to goal 200 - 220 mmHg. called interventional neuroradiology and accompanied patient down personally to IR for IA verapamil again. I remained with the patient managing his hemodynamics down in IR and providing anxiolysis IV. I accompanied patient back up to [facility] where patient again was neuro intact and following commands. Sodium downtrending to 135 and urine studies and serum osms suggestive of urine sodium losses and high uop. added Florinef to mitigate sodium losses, and increased mivf to 500cc/hr to maintain euvolemia. later in the day patient decompensated requiring intubation for hyoxemia, cxr suggestive of pulmonary edema. 2d echo with evidence of EF 40%, septal hypokinesis, moderate MR. On levo, vaso, phenylephrine. difficult to get to goal SBP 200 mmHg, likely due to myocardial dysfunction. decreased goal to 180 - 200 mmHg to balance cardiac vs. neurologic goals. 10/15 Patient was discussed with Dr. Sullivan at shift change. Isuprel was initiated in effort to improve cardiac output as dobutamine not available and concerned with use of milrinone given long half life. Systolic blood pressure was relatively stable with perhaps some modest improvement from 170s to 180s for several hours after initiation. Notified when patient became abruptly hypotensive despite vasopressin, levophed 20 mcg/min, Greyson-Synephrine 300 mcg/m. He was also hypoxemic with sats in 80s despite PCV with PEEP 8 and FiO2 100%, respiratory rate in the 30s. He had decreased breath sounds bilaterally and was concerned for air trapping so removed from mechanical ventilation and bagged without improvement. Placed patient back on mechanical ventilation and provide recruitment maneuvers and increased PEEP to 12 which resulted in improvement of sats to 88% to 92%. Ordered Flolan. Discontinued isuprel and initiated epinephrine. R radial art line would not draw blood . Performed u/s guided femoral artery stick to confirm hypoxemia on ABG given poor wave form on pulse ox and PaO2 was 58. Placed new L radial art line and this resulted in ~ 30 point increase in SBP relative to prior line but patient ultimately on vasopressin, levophed 30 micrograms per minute, Greyson-Synephrine 300 micrograms per minute, epinephrine 12 mcg/min and unable to maintain target pressure (SBP in 150s). Given calcium chloride. patient with shaking movements all extremities, pupils 2mm and sluggish, no eye deviation. Rigors seemed most likely but unable to emergently rule out seizures so loaded with fosphenytoin to avoid secondary injury from seizure activity. WBC increasing and concern for HCAP so pancultured and placed on cefepime, vancomycin, azithromycin. Hydrocortisone 100 mg IV every 8 hours initiated due to concern for septic shock in a patient who has been refractory to all other above measures. Patient is to hemodynamically unstable and hypoxic for transport for neurologic imaging. Urine output has declined to 180-200 ML's per hour. Back off maintenance IV fluids to 200 ML's per hour. Bedside echo demonstrates decreased LV function with normal RV contractility and collapsible IVC suggesting ongoing maintenance fluid administration is appropriate. 10/15 additional visit: continued to deteriorate throughout the day. Seen multiple times. hypoxic on 100% fio2, flolan. required nimbex drip to maintain. repeat bedside critical care ultrasound still demonstrates severe LV dysfunction , decompressed RV, IVC more dilated than previous echo overnight, however still with respiratory variation. femoral arterial line placed with better waveform and higher pressure (likely SVR too high to allow accurate measurement of radial pressure). Pulse contour analysis without stroke volume variation, CI 3.6. SV 52mL. trialed additional albumin without improvement in hemodynamics. uop slower than before, but still significant salt wasting in the urine- sodium dropped to 125 from 132 despite already on 3% nacl infusion and aggressive sodium replacements. forced to give 23% nacl and salt tabs. declining clinically despite maximal therapy. 10/16: continues to be maximally critically ill. LV dysfunction persists. starting to get volume overloaded, but given concern for ongoing cerebral vasospasm, unable to actively diurese patient. sodium wasting persists, but uop downtrending slightly. very hypokalemic today, likely due to steroids. remains intubated, sedated, paralyzed, on flolan. CXR today appears worse with worsening airspace disease. Lactate remains slightly elevated, confirming persistent shock. 10/17: Lung infiltrates dense bilaterally, reflected in shunting and problems with oxygenation. Developed vasospasm on TCDs and required angiogram and intra- arterial verapamil again today. 10/18: SBP 160 - 170 range. FiO2 0.55. BNP > 5000. Not tolerating attempts at maintaining higher BP due to worsening heart failure. Several episodes of vasospasm. Watch daily TCDs closely. Sputum no growth. 10/19: Tmax 99.8. Currently 99. Remains on 4 vasopressors and epoprostenol 10/20: Yesterday. Returned IR for intra-arterial calcium channel jose infusion for vasospasm. Transcranial Dopplers today Still pending. Remains on significant vasopressor support. 10/21: Good response to diuresis, check BNP. TCDs pending. Heart failure remains a major problem. 10/22: CVP 21 - 22, finger tips blue, digits pale white despite high dose milrinone dilation. Greyson and vaso much reduced. Will try diltiazem gtt for digital ischemia. Urine remains > 200/hr and proximal limbs are well perfused. This digital ischemia appears to be a local phenomenon ala Raynaud's. New subcutaneous emphysema right anterior chest wall. 10/23: Old CVL removed. Fingertips remain marginal, some necrotic despite diltiazem and milrinone treatment for digital ischemia. Cardiac output > 7 liters/min and urine copious, confirming good perfusion pressure and flow. This continues to be a local phenomenon of the digits ala Raynaud's. We are trying to wean vasopressors off but are required to maintaining a cerebral perfusion pressure suitable for the treatment of aneurysmal subarachnoid bleed. Frankly, the importance of brain function eclipses fingertips. 10/24: Afebrile. Well perfused except for index finger left hand, few tips fingers right. Arms and hands warmer with resolving circumferential edema. Diltiazem and milrinone gtt continue. Greyson to 10 mics/min. 10/25: Digits are warm and well perfused except left index and right 4th fingertips; demarcated and not viable. Dry. Diltiazem and milrinone infusions continue to help reverse digital ischemia. 10/26: Forced diuresis continues and BP remains nicely elevated. Hands and digits warm aside from left index and right 4th fingertips which have demarcated. 10/27: Good response to diuretics. Perfusion pressure and documented flow excellent. Continue to wean vent. 10/28: Start SBTs. Fluid balance back toward normal. 10/29: Tolerating SBTs. Lowering sedation. Edema resolving. 10/30: Tolerating tube feeds, will taper off TPN and remove central line. Continue diuretics. 10/31: net -3L over 24h. mental status at baseline. tolerating CPAP, but does not have the mental status to protect airway. will likely need trach/peg. placement will be a problem due to lack of funding. 11/01: no changes or improvements. discussed with yesterday and she "does not want any more setbacks" and would prefer trach versus trial of extubation. I agree with her assessment. plan for trach today. placement is still a significant problem. net -2L/24h. 11/02: wbc uptrending, febrile. antonio cultured, started empiric abx today. failed SBT overnight and placed back on rate. 11/03: Tolerating CPAP today, following commands. Low-grade fever cultures pending. WBC count normal today 11/04: Remains on TPs since yesterday. Neuro exam remains stable. Follows commands weakly. Na 152 11/05: Remains off vent for 48 hours now. Sitting up in stretcher chair today. Na improved to 149. remains weak but improving 11/06: Continues to tolerate TPs well. Neuro exam unchanged. Sodium 148 today. Continues to spike intermittent fever Tmax 102.7. 11/07: Continued fevers, no leukocytosis. 11/08: Stable for replacement of bone flap. 11/09: Getting a bit excessively diuresed, will decrease lasix and convert to PO. Fingertips and toes demarcating as expected. No immediate action required except for continued diltiazem therapy. Clearly a Raynaud's type digital ischemia as peripheral perfusion and urine output indicated excellent peripheral perfusion. 11/10: Tracks with eyes today, nods to questions. Failed swallow again. 11/11: Plan for PEG, GI consulted. Bone flap replacement on hold due to blood cultures and fever. 11/12: May get PEG today, Bone flap to be replaced coming week per Dr. Perry. Afebrile no white count 11/13: Neuro exam unchanged. Na was 150 yesterday, repeat CMP pending. Left flap remains sunken 11/14: emesis overnight with ? aspiration event. no increased o2 requirement, but fever to 102.5 today. recultured. no complaints from patient. Objective Vital Signs Date Time Temp Pulse Resp B/P (MAP) Pulse Ox O2 Delivery O2 Flow Rate FiO2 11/14/16 18:00 102 11/14/16 16:00 98.3 24 117/75 (89) 95 11/14/16 07:46 T-piece 28 11/14/16 07:00 5.00 Intake and Output 11/14/16 11/14/16 11/15/16 08:00 16:00 00:00 Intake Total 315 ml Output Total 475.0 ml Balance -160.0 ml Result Diagram: 11/14/16 0401 11/14/16 0401 Imaging Last Impressions Chest X-Ray 10/20/16 0000 Signed Impressions: Service Date/Time: October 03:47 - CONCLUSION: 1. Stable tubes and lines. 2. Stable bilateral lower lung zone airspace disease. 3. Stable small right pleural effusion. 4. No significant interval change. Kev Vergara MD Transcranial Doppler Study Complete 10/19/16 0600 Signed Impressions: Service Date/Time: Wednesday, October 19, 2016 08:02 - CONCLUSION: Suspect developing right MCA vasospasm Yosvany Polk MD Liver Ultrasound 10/19/16 0000 Signed Impressions: Service Date/Time: Wednesday, October 19, 2016 11:20 - CONCLUSION: 1. Sludge filled gallbladder with thickened wall. 2. Moderate size bilateral pleural effusions and mild upper abdominal ascites. Santos Vazquez MD Head CT 10/17/16 0000 Signed Impressions: Service Date/Time: Monday, October 17, 2016 15:06 - CONCLUSION: Ventricles are slightly larger without ventriculostomy. Edema in the left hemisphere the brain herniating through the operative site. Remington Woodward MD FACR Cerebral Arteriogram 10/17/16 0000 Signed Impressions: Service Date/Time: Monday, October 17, 2016 00:00 - CONCLUSION: 1. Uncompensated spasmolysis of the left middle cerebral artery Harvey Morejon MD Infusion Non-thrombolysis 10/14/16 1103 Signed Impressions: Service Date/Time: Friday, October 14, 2016 10:21 - CONCLUSION: 1. Uncomplicated infusion for spasmolysis Harvey Morejon MD Neck CTA 10/07/16 0000 Signed Impressions: Service Date/Time: Friday, October 07, 2016 15:03 - CONCLUSION: 1. Mild carotid bulb atherosclerotic calcification bilaterally. However, no significant stenosis is present in either internal carotid artery. 2. Paranasal sinus mucoperiosteal thickening. 3. Please refer to brain CTA report for description of the intracranial findings. Yosvany Ramirez MD Head CTA 10/07/16 0000 Signed Impressions: Service Date/Time: Friday, October 07, 2016 15:03 - CONCLUSION: 1. 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 2. Large left subdural hematoma measuring 1.3 cm in depth with a significant, 1.6 cm left to right subfalcine shift. Joni Shelton MD Objective Remarks GENERAL: 56-year-old male. alert. HEAD: Status post left craniectomy. Left flap sunken, Incision healing well EYES: About 3 mm bilaterally and reactive NECK: Trachea midline. 8.0 Shiley cuffed trach, site clean, dry. CARDIOVASCULAR: normal rate, regular rhythm. sinus by tele. RESPIRATORY: on trach collar. equal chest rise. GASTROINTESTINAL: Abdomen soft, non-tender, nondistended. MUSCULOSKELETAL: Ischemic changes worst to left index finger tip, right 4th fingertip, and majority of R toes. Demarcating, dry. NEURO EXAM: Opens eyes and follows command, right UE weaker than left, follows commands x4. Mouthing words Procedures 10/13 Four-vessel cerebral angiography with verapamil treatment of vasospasm A/P Assessment and Plan Neuro/Psych Status post left frontotemporal parietal craniectomy 10/08 for evacuation subdural hematoma/duraplasty Left subdural hematoma - 1.3 cm with 1.6 shift left to right Subarachnoid hemorrhage Alvarado and Rodriguez 5, Carroll grade 4 - left P-comm status post 4 coiling 10/08 - Nimodipine completed 21 days. Initiated 10/13. - Levetiracetam 500 mg per tube q12h. - 10/13 and 10/14 and 10/17) 10/19 left MCA territory vasospasm, status post successful verapamil treatment by IR with 20 mg verapamil - SBP goal now <140. - 10/17 CT brain - less hemisphere edema with herniation through left craniotomy site, now improved. - Dr. Perry/neurosurgery. Plan to replace bone flap this week. Respiratory: Acute hypoxic Respiratory failure-ARDS- resolved Noncardiogenic/neurogenic pulmonary edema- resolved. Chronic respiratory failure requiring tracheostomy -- Nebs, HOB at 30 degrees. Remains on TP several days -- Albuterol/Atrovent every 6 hours with albuterol aerosols every 2 hours for Dyspnea -- continue TP 24/7 as tolerated. Up to stretcher chair daily -- s/p Trach Dr. Sullivan/Dr. Collazo 11/01 Cardiovascular: Septic and cardiogenic shock- resolved. LV dysfunction secondary to SAH - persistent, now resolved Elevated troponin- secondary to SAH, unlikely to be ACS. - resolved. Pulmonary hypertension Continue diuresis. Na elevated, but did not get free water due to PEG tube placement 11/12. free water 200mL per tube q6h. Echocardiogram 10/14/16 revealed EF 40-45%. Septal hypokinesis. Moderate MR. Severe pulmonary hypertension with pulmonary artery pressures estimated 61 mmHg Limited Echo 11/06: LVEF 60-65%, Trivial mitral and tricuspid regurgitation, No vegetations noted. Renal: Cerebral Salt Wasting/SIADH-resolved now hypernatremic Strict I/Os. See FEN below. Creatinine currently within normal limits -> resolved. FEN/GI: Severe hyponatremia-resolved now hypernatremic Hypokalemia Elevated transaminases Hyperammonemia - DCd sodium chloride 3gm po TID 11/04 - free water per tube 200mL po q6h. - ICU electrolyte protocol. aggressively replace potassium losses. - Lansoprazole 30 mg by tube daily for GI prophylaxis - Docusate sodium 100 mg twice a day, senna liquid 8.6 mg twice a day and polyethylene glycol 3350 17 g twice a day for bowel regimen - Lactulose 30 cc QID. ammonia 46 on 10/31, 37 on 11/04 - NPO per speech, Continue NGT feeding, Failed swallow eval again 11/11. s/p PEG 11/12/16 Heme/ID: Septic Shock- resolved. Possible HCAP New Fever, leukocytosis, staph epi bacteremia - limited Echo to evaluate vegetation-neg. DCd Dilantin. ID following, cleared for bone flap replacement - Digital Ischemia with necrosis, conservative management - s/p Diltiazem and milrinone infusions - Digits have demarcated, allow auto amputation. Cardizem PO (for digital ischemia, Raynaud's) Pertinent cultures 10/15 - blood cultures - 1 out of 4 anaerobic gram-negative cocci possibly Veillonella 10/15 - sputum - beta strep not A, strep species 10/19 cultures NG 10/21 1/4 bottles blood cultures coag negative staph. Culture 11/01. coag neg stah /4 bottles Current ABX Levaquin x 7 days end 11/15/16 Diflucan duration per ID (started 11/06/16) Endocrine: Presumed Adrenal Insufficiency Discontinued fludrocortisone 10/18. Sliding-scale insulin with NovoLog -Accu-Cheks every 4 hours to maintain euglycemia d/cd Levemir bid. Taper off cortisone -> done Prophylaxis: GI Prophylaxis - lansoprazole DVT Prophylaxis-- SCDs, heparin subcutaneous Lines: - 10/14 right SC TLC, removed 10/22 - 10/14 right radial art line, removed 10/14 - 10/15 left radial art line, removed 10/16 - 10/22 left groin triple lumen placed, d/c 10/30 - d/c ramires. Overall impression: No change. follow up culture from new fever, does not appear infected. needs bone flap replaced and placement. The patient's digital ischemia developed when he had a cardiac output over 8.0 liters/min, CVP was over 20 mm Hg, and urine over 75 ml/hr for many days. BNP was elevated at 777. His hands and feet were warm but the fingers and toes became cold, white, nearly cadaveric. Greyson synephrine was only vasopressor and it was at 30 units/min only. We stopped it immediately and started milrinone and cardizem iv infusions. Most fingers and toes responded well to the vascular dilators but a few digits demarcated and became necrotic. Anticoagulation was not an option in face of recent aneurysm rupture and gastritis. Patients with this degree of digital ischemia (severe Raynaud's) usually have an underlying illness such as malignancy, mixed connective tissue disorder, collagen vascular disease, rheumatoid disease, etc. This workup can progress after he has cleared exogenous steroids which were just stopped. He's in a pretty revved up inflammatory state now and the lab values will be altered by it. Overall impression: Stable for replacement of bone flap, cleared by ID. s/p PEG. Digit tips remain dry; allow to autoamputate. If hypernatremia improves, can transfer to neuro floor Walter Sullivan MD Nov 14, 2016 18:48
[2016-11-14] MEDS: MELATONIN 5 MG TAB PO SCH (21:16)
[2016-11-15] VITALS (15 sets, daily range): BP systolic 118–135; BP diastolic 69–86; PULSE 80–97; RESP 20–26; TEMP 98–98.7; O2SAT 94–99
[2016-11-15] MEDS: CHLORHEXIDINE GLUCONATE 2 % 1 PACK (2 CLOTHS) TOP SCH (04:00)
[2016-11-15] MEDS: FREE WATER G-TUBE SCH ×4 (06:00→20:00)
[2016-11-15 06:09] LABS: HEMATOCRIT 31.4 % (39.0-51.0); MEAN CORPUSCULAR HEMOGLOBIN 31.4 PG (27.0-34.0); MEAN CORPUSCULAR HGB CONC 33.1 % (32.0-36.0); PLATELET COUNT 460 TH/MM3 (150-450); RED CELL DISTRIBUTION WIDTH 14.5 % (11.6-17.2); REVIEW FLAG FINAL
[2016-11-15] MEDS: DILTIAZEM HCL 90 MG TAB PO SCH ×4 (06:12→23:34)
[2016-11-15 06:52] LABS: BICARBONATE 27.8 MEQ/L (21.0-32.0); POTASSIUM 3.2 MEQ/L (3.5-5.1)
[2016-11-15] MEDS: CHLORHEXIDINE 0.12% (ORAL KIT) 15 ML CUP MT SCH ×2 (07:36→20:32)
[2016-11-15] MEDS: LACTOBACILLUS ACIDOPHILUS TAB PO SCH ×3 (08:23→18:36)
[2016-11-15] MEDS: FUROSEMIDE 40 MG/5 ML UNIT DOSE CUP NG SCH (08:23)
[2016-11-15] MEDS: FLUCONAZOLE 100 MG TAB PO SCH (08:23)
[2016-11-15] MEDS: LEVOFLOXACIN 750 MG TAB PO SCH (08:23)
[2016-11-15] MEDS: levETIRAcetam 500 MG/5 ML UDC NG SCH ×2 (08:23→20:35)
[2016-11-15] MEDS: LANSOPRAZOLE SOLUTAB 30 MG TAB NG SCH (08:23)
[2016-11-15] MEDS: SODIUM CHLORIDE 0.9% FLUSH 10 ML FLUSH IV FLUSH SCH ×2 (08:23→21:00)
[2016-11-15] MEDS: POTASSIUM CHLOR 20 MEQ PREMIX 100 ML IV PRN ×2 (08:24→12:36)
[2016-11-15] MEDS: BENEPROTEIN POWDER 1 PACK G-TUBE SCH ×3 (08:24→18:00)
[2016-11-15] MEDS: ARTIFICIAL TEARS OPTH SOLN 15 ML BTL EACH EYE SCH ×3 (08:24→18:00)
[2016-11-15] MEDS ORDERED: POTASSIUM CHLORIDE 25 MEQ EFFERVESCENT TAB PO ONE (08:30)
--- NOTE | 2016-11-15 14:54 | HHI.IDPN ---
Subjective Subjective Remarks Patient is a 56-year-old male, initially admitted at [facility] after he developed acute onset of left-sided weakness and numbness. In [facility] emergency room his mental status deteriorated, and he required intubation. CT of the head showed subarachnoid bleed. He was transferred to [facility] for neurosurgical evaluation and treatment. Patient underwent angiogram and coiling of his aneurysm. He also underwent emergency surgery and had left frontal temporal parietal decompressive craniectomy, duraplasty, and evacuation of a subdural hematoma. He had a ezio hole and the ventriculostomy placement. His hospitalization was complicated by significant vasospasm of his cerebral arteries, and he had multiple angiogram and treatment of the vasospasm. He also had problem with significant LV dysfunction in both volume overload. His had hyponatremia that has been treated and corrected. He initially started having fevers and some clinical deterioration as far as infection around the first week of October. He had a sputum culture that had pneumococcus, beta- hemolytic strep and Haemophilus. He had one out of 2 blood culture that had anaerobic gram-negative cocci. He was on antibiotics up until October 23. Patient also required significant amount of pressors to maintain an adequate blood pressure to ensure cerebral perfusion. 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 Patient eventually underwent tracheostomy for his continued respiratory requirement, and had this procedure done November 01. Patient currently has been doing quite well and not requiring ventilatory support, and on T piece. Starting November 02 he started having fevers again as well as increased WBC. Repeat cultures at that time grew 2 blood cultures that had coag-negative staph. His central lines have been removed. Patient also has had liquid stool, but C. difficile is negative. Urinalysis done was unremarkable. Patient was started back on antibiotics on November 02 and has been on cefepime and IV vancomycin. He continues to have fevers. His WBC has been down to normal. His last chest x- ray yesterday showing stable infiltrates. He has no central line. He has a Maldonado catheter in place. He has an NG tube and gets tube feedings. Infectious disease consultation has been requested to evaluate the patient for persistent fevers. Notes reviewed Temps better Mild SOB On Tpiece CXR with new infiltrates Vomited yesterday WBC normal S/P PEG 11/11 Antibiotics Levaquin - finished today Diflucan Lines PIV Past Medical History Hypertension Past Surgical History Status post trach Status post craniectomy for evacuation of subdural hematoma Allergies: Coded Allergies: No Known Allergies (Unverified , 05/06/16) Objective . Vital Signs Date Time Temp Pulse Resp B/P (MAP) Pulse Ox O2 Delivery O2 Flow Rate FiO2 11/15/16 12:00 95 11/15/16 10:00 92 11/15/16 09:11 99 T-piece 28 11/15/16 08:00 88 11/15/16 08:00 98.3 88 22 123/77 (92) 98 11/15/16 07:00 97 T-Piece 5.00 28 11/15/16 06:00 97 11/15/16 04:00 92 11/15/16 04:00 98.7 94 20 128/83 (98) 98 11/15/16 03:00 94 T-piece 6.00 28 11/15/16 02:00 85 11/15/16 00:00 80 11/15/16 00:00 98.4 88 22 118/69 (85) 94 11/14/16 22:00 88 11/14/16 20:00 90 11/14/16 20:00 98.5 90 25 107/69 (82) 94 11/14/16 19:00 99 T-Piece 5.00 28 11/14/16 18:00 102 11/14/16 16:00 98.3 98 24 117/75 (89) 95 11/14/16 16:00 98 . Laboratory Tests Test 11/14/16 04:01 11/15/16 05:30 White Blood Count 10.2 TH/MM3 7.0 TH/MM3 Red Blood Count 3.77 MIL/MM3 3.30 MIL/MM3 Hemoglobin 12.1 GM/DL 10.4 GM/DL Hematocrit 36.2 % 31.4 % Mean Corpuscular Volume 96.1 FL 95.0 FL Mean Corpuscular Hemoglobin 32.1 PG 31.4 PG Mean Corpuscular Hemoglobin Concent 33.4 % 33.1 % Red Cell Distribution Width 14.5 % 14.5 % Platelet Count 438 TH/MM3 460 TH/MM3 Mean Platelet Volume 9.4 FL 9.1 FL Neutrophils (%) (Auto) 70.3 % Lymphocytes (%) (Auto) 22.1 % Monocytes (%) (Auto) 2.4 % Eosinophils (%) (Auto) 4.5 % Basophils (%) (Auto) 0.7 % Neutrophils # (Auto) 7.1 TH/MM3 Lymphocytes # (Auto) 2.2 TH/MM3 Monocytes # (Auto) 0.2 TH/MM3 Eosinophils # (Auto) 0.5 TH/MM3 Basophils # (Auto) 0.1 TH/MM3 CBC Comment DIFF FINAL Differential Comment Laboratory Tests Test 11/13/16 16:40 11/13/16 21:35 11/14/16 04:01 11/15/16 05:30 Blood Urea Nitrogen LESS THAN 1 MG/DL 37 MG/DL 41 MG/DL 34 MG/DL Creatinine 0.78 MG/DL 0.83 MG/DL 0.90 MG/DL 0.81 MG/DL Random Glucose 104 MG/DL 114 MG/DL 119 MG/DL 112 MG/DL Total Protein 6.8 GM/DL 7.0 GM/DL 6.6 GM/DL Albumin 2.0 GM/DL 2.1 GM/DL 2.1 GM/DL Calcium Level 8.7 MG/DL 8.7 MG/DL 8.3 MG/DL 8.5 MG/DL Alkaline Phosphatase 131 U/L 142 U/L 134 U/L Aspartate Amino Transf (AST/SGOT) 16 U/L 12 U/L 10 U/L Alanine Aminotransferase (ALT/SGPT) 42 U/L 43 U/L 38 U/L Total Bilirubin 0.3 MG/DL 0.3 MG/DL 0.3 MG/DL Sodium Level 145 MEQ/L 146 MEQ/L 147 MEQ/L 148 MEQ/L Potassium Level 4.1 MEQ/L 4.4 MEQ/L 4.6 MEQ/L 3.2 MEQ/L Chloride Level 113 MEQ/L 114 MEQ/L 113 MEQ/L 113 MEQ/L Carbon Dioxide Level LESS THAN 1.0 MEQ/L 24.9 MEQ/L 25.7 MEQ/L 27.8 MEQ/L Anion Gap 31 MEQ/L 7 MEQ/L 8 MEQ/L 7 MEQ/L Estimat Glomerular Filtration Rate 104 ML/MIN 97 ML/MIN 88 ML/MIN 99 ML/MIN Microbiology Date/Time Source Procedure Growth Status 11/15/16 05:20 Blood Peripheral Aerobic Blood Culture Pending Received 11/15/16 05:20 Blood Peripheral Anaerobic Blood Culture Pending Received 11/15/16 05:20 Blood Peripheral Aerobic Blood Culture Pending Received 11/15/16 05:20 Blood Peripheral Anaerobic Blood Culture Pending Received Imaging Last 48 hours Impressions Chest X-Ray 11/14/16 0000 Signed Impressions: Service Date/Time: Monday, November 14, 2016 12:12 - CONCLUSION: 1. Interval development of patchy bilateral lower lung zone airspace disease and small left pleural effusion. Findings are concerning for aspiration. Kev Vergara MD Last Impressions Chest X-Ray 11/11/16 0000 Signed Impressions: Service Date/Time: Friday, November 11, 2016 20:54 - CONCLUSION: Trace right base atelectasis. Yosvany Butler MD Abdomen X-Ray 10/21/16 0600 Signed Impressions: Service Date/Time: Friday, October 21, 2016 03:50 - CONCLUSION: 1. NGT in the stomach. 2. General paucity of small bowel gas. This finding is nonspecific and occasionally may reflect fluid-filled loops of bowel. Otherwise, no dilated bowel loops to suggest significant ileus or obstruction. Kev Vergara MD Transcranial Doppler Study Complete 10/20/16 0600 Signed Impressions: Service Date/Time: October 07:54 - CONCLUSION: Slight interval elevation of flow velocity measurements and ratio on the left Yosvany Polk MD Liver Ultrasound 10/19/16 0000 Signed Impressions: Service Date/Time: Wednesday, October 19, 2016 11:20 - CONCLUSION: 1. Sludge filled gallbladder with thickened wall. 2. Moderate size bilateral pleural effusions and mild upper abdominal ascites. Santos Vazquez MD Cerebral Arteriogram 10/19/16 0000 Signed Impressions: Service Date/Time: Wednesday, October 19, 2016 12:47 - CONCLUSION: Uncomplicated cerebral arteriography with spasmolytic therapy as described in detail above. Yosvany Polk MD Head CT 10/17/16 0000 Signed Impressions: Service Date/Time: Monday, October 17, 2016 15:06 - CONCLUSION: Ventricles are slightly larger without ventriculostomy. Edema in the left hemisphere the brain herniating through the operative site. Remington Woodward MD FACR Infusion Non-thrombolysis 10/14/16 1103 Signed Impressions: Service Date/Time: Friday, October 14, 2016 10:21 - CONCLUSION: 1. Uncomplicated infusion for spasmolysis Harvey Morejon MD Neck CTA 10/07/16 Signed Impressions: Service Date/Time: Friday, October 07, 2016 15:03 - CONCLUSION: 1. Mild carotid bulb atherosclerotic calcification bilaterally. However, no significant stenosis is present in either internal carotid artery. 2. Paranasal sinus mucoperiosteal thickening. 3. Please refer to brain CTA report for description of the intracranial findings. Yosvany Ramirez MD Head CTA 10/07/16 Signed Impressions: Service Date/Time: Friday, October 07, 2016 15:03 - CONCLUSION: 1. 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 2. Large left subdural hematoma measuring 1.3 cm in depth with a significant, 1.6 cm left to right subfalcine shift. Joni Shelton MD Chest X-Ray 11/05/16599 Signed Impressions: Service Date/Time: Saturday, November 05, 2016 04:39 - CONCLUSION: Persistent non-consolidative infiltrates in the medial lower lungs. Santos Vazquez MD Abdomen X-Ray 10/21/16599 Signed Impressions: Service Date/Time: Friday, October 21, 2016 03:50 - CONCLUSION: 1. NGT in the stomach. 2. General paucity of small bowel gas. This finding is nonspecific and occasionally may reflect fluid-filled loops of bowel. Otherwise, no dilated bowel loops to suggest significant ileus or obstruction. Kev Vergara MD Transcranial Doppler Study Complete 10/20/16599 Signed Impressions: Service Date/Time: October 07:54 - CONCLUSION: Slight interval elevation of flow velocity measurements and ratio on the left Yosvany Polk MD Liver Ultrasound 10/19/16 Signed Impressions: Service Date/Time: Wednesday, October 19, 2016 11:20 - CONCLUSION: 1. Sludge filled gallbladder with thickened wall. 2. Moderate size bilateral pleural effusions and mild upper abdominal ascites. Santos Vazquez MD Cerebral Arteriogram 10/19/16 Signed Impressions: Service Date/Time: Wednesday, October 19, 2016 12:47 - CONCLUSION: Uncomplicated cerebral arteriography with spasmolytic therapy as described in detail above. Yosvany Polk MD Head CT 10/17/16 0000 Signed Impressions: Service Date/Time: Monday, October 17, 2016 15:06 - CONCLUSION: Ventricles are slightly larger without ventriculostomy. Edema in the left hemisphere the brain herniating through the operative site. Remington Woodward MD FACR Infusion Non-thrombolysis 10/14/16 1103 Signed Impressions: Service Date/Time: Friday, October 14, 2016 10:21 - CONCLUSION: 1. Uncomplicated infusion for spasmolysis Harvey Morejon MD Neck CTA 10/07/16 0000 Signed Impressions: Service Date/Time: Friday, October 07, 2016 15:03 - CONCLUSION: 1. Mild carotid bulb atherosclerotic calcification bilaterally. However, no significant stenosis is present in either internal carotid artery. 2. Paranasal sinus mucoperiosteal thickening. 3. Please refer to brain CTA report for description of the intracranial findings. Yosvany Ramirez MD Head CTA 10/07/16 0000 Signed Impressions: Service Date/Time: Friday, October 07, 2016 15:03 - CONCLUSION: 1. 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 2. Large left subdural hematoma measuring 1.3 cm in depth with a significant, 1.6 cm left to right subfalcine shift. Joni Shelton MD Physical Exam GENERAL: awake and alert, NAD, on T-piece SKIN: Warm and dry. Rash better. HEAD: Incision healing with several areas that have eschar, no drainage, no redness EYES: [place] conjunctiva. No petechia or hemorrhage. No scleral icterus. No injection or drainage. EARS, NOSE AND THROAT: Nose without bleeding or purulent nasal discharge. No sinus tenderness. Slightly dry oral mucosa NECK: Trachea midline. Supple and not tender, no meningeal signs. Trach site ok CARDIOVASCULAR: Regular rate and rhythm. No murmurs, rubs or gallops heard RESPIRATORY: Scattered rhonchi ABDOMEN: Soft, non-tender, nondistended. Bowel sounds present and normoactive. No guarding. No rebound. No organomegaly. EXTREMITIES: No clubbing, has mild pedal edema. Has dry gangrene LIF and R ring finger. All his toes have dry gangrene. No calf tenderness. Well perfused and warm. NEUROLOGICAL: Awake and alert. Mild facial asymmetry. Weak in all extremities PSYCHIATRIC: Normal affect, calm and cooperative. LINE: PIV with no evidence of infection Assessment & Plan Remarks IMPRESSION Persistent fevers since 11/02, WBC has improved - temps better - ?drug - UA 11/02 ok, has condom cath - no lines - diarrhea, C diff negative - has rash, ?fever due to Abx, ?Dilantin 2 BC with 2 different Coag Neg Staph, ?real, no lines now - last line removed 10/30 - ?contaminant S/P coiling aneurysm S/P craniectomy, decompression, evacuation of SDH Respiratory failure, S/P trach, on T-piece Rash likely drug eruption, ?Abx - B-lactam, ?Dilantin LV dysfunction Recurrent fevers, etiology? - ?aspiarated - has new infiltrates on CXR Vomiting RECOMMENDATION On Diflucan Sputum G/S C/S today Follow new C/S Monitor temps Monitor for recurrent vomiting Monitor progress Mitra Smith MD Nov 15, 2016 14:54
--- NOTE | 2016-11-15 18:49 | HHI.CCPN ---
Subjective Remarks/Hospital Course 10/07: 56-year-old male presents with intracranial bleed. Patient was transferred from [facility] at [facility]. As per the paramedics and the nurse who assisted the patient said that patient earlier this morning was coming down the stairs when he started feeling some left-sided weakness and numbness. He called 911 and by the time EMS arrived they detected some deficit and called a stroke alert. Patient was taken to [facility]. When patient arrived his mental status started to decline and he was intubated emergently in the ER. A CAT scan of the head showed subarachnoid and subdural bleed. He was taking emergently to an angio suite for coiling of the aneurysm and later on to OR for subdural hematoma evacuation. 10/08: Remains sedated, orally intubated on mechanical ventilation. Arouses off sedation and following commands with both upper extremities earlier. Ventriculostomy in place. ICP 7, CPP mid 80s. 10/09: Remains sedated, orally intubated on mechanical ventilation. Arouses off sedation and follows commands with both upper extremities. Ventriculostomy in place. 10/10: Remains sedated, orally intubated on mechanical ventilation. Arouses off sedation and follows commands and both upper extremities. Ventriculostomy in place. ICP 5. Failed C Pap trial yesterday. 10/11: Extubated on 10/10, tolerating well. Awake and alert. Appears confused, moving all 4 extremities. Ventriculostomy discontinued today by neurosurgery 10/13: Patient has developed severe vasospasm at the left MCA territory on TCD's that was treated with IV route verapamil 10/14: patient extubated overnight. was originally following commands and neuro intact. TCDs this morning with increase LIs over yesterday, particularly Left MCA territory. On my evaluation early this morning, patient was aphasic, not moving the right side of his body, not following commands. SBP 140s at that time. net 2L negative/24h and uop almost 1L/hr at the time. I immediately bolused with 2L NS iv, placed arterial and central lines, started phenylephrine , increased SBP to goal 200 - 220 mmHg. called interventional neuroradiology and accompanied patient down personally to IR for IA verapamil again. I remained with the patient managing his hemodynamics down in IR and providing anxiolysis IV. I accompanied patient back up to [facility] where patient again was neuro intact and following commands. Sodium downtrending to 135 and urine studies and serum osms suggestive of urine sodium losses and high uop. added Florinef to mitigate sodium losses, and increased mivf to 500cc/hr to maintain euvolemia. later in the day patient decompensated requiring intubation for hyoxemia, cxr suggestive of pulmonary edema. 2d echo with evidence of EF 40%, septal hypokinesis, moderate MR. On levo, vaso, phenylephrine. difficult to get to goal SBP 200 mmHg, likely due to myocardial dysfunction. decreased goal to 180 - 200 mmHg to balance cardiac vs. neurologic goals. 10/15 Patient was discussed with Dr. Sullivan at shift change. Isuprel was initiated in effort to improve cardiac output as dobutamine not available and concerned with use of milrinone given long half life. Systolic blood pressure was relatively stable with perhaps some modest improvement from 170s to 180s for several hours after initiation. Notified when patient became abruptly hypotensive despite vasopressin, levophed 20 mcg/min, Greyson-Synephrine 300 mcg/m. He was also hypoxemic with sats in 80s despite PCV with PEEP 8 and FiO2 100%, respiratory rate in the 30s. He had decreased breath sounds bilaterally and was concerned for air trapping so removed from mechanical ventilation and bagged without improvement. Placed patient back on mechanical ventilation and provide recruitment maneuvers and increased PEEP to 12 which resulted in improvement of sats to 88% to 92%. Ordered Flolan. Discontinued isuprel and initiated epinephrine. R radial art line would not draw blood . Performed u/s guided femoral artery stick to confirm hypoxemia on ABG given poor wave form on pulse ox and PaO2 was 58. Placed new L radial art line and this resulted in ~ 30 point increase in SBP relative to prior line but patient ultimately on vasopressin, levophed 30 micrograms per minute, Greyson-Synephrine 300 micrograms per minute, epinephrine 12 mcg/min and unable to maintain target pressure (SBP in 150s). Given calcium chloride. patient with shaking movements all extremities, pupils 2mm and sluggish, no eye deviation. Rigors seemed most likely but unable to emergently rule out seizures so loaded with fosphenytoin to avoid secondary injury from seizure activity. WBC increasing and concern for HCAP so pancultured and placed on cefepime, vancomycin, azithromycin. Hydrocortisone 100 mg IV every 8 hours initiated due to concern for septic shock in a patient who has been refractory to all other above measures. Patient is to hemodynamically unstable and hypoxic for transport for neurologic imaging. Urine output has declined to 180-200 ML's per hour. Back off maintenance IV fluids to 200 ML's per hour. Bedside echo demonstrates decreased LV function with normal RV contractility and collapsible IVC suggesting ongoing maintenance fluid administration is appropriate. 10/15 additional visit: continued to deteriorate throughout the day. Seen multiple times. hypoxic on 100% fio2, flolan. required nimbex drip to maintain. repeat bedside critical care ultrasound still demonstrates severe LV dysfunction , decompressed RV, IVC more dilated than previous echo overnight, however still with respiratory variation. femoral arterial line placed with better waveform and higher pressure (likely SVR too high to allow accurate measurement of radial pressure). Pulse contour analysis without stroke volume variation, CI 3.6. SV 52mL. trialed additional albumin without improvement in hemodynamics. uop slower than before, but still significant salt wasting in the urine- sodium dropped to 125 from 132 despite already on 3% nacl infusion and aggressive sodium replacements. forced to give 23% nacl and salt tabs. declining clinically despite maximal therapy. 10/16: continues to be maximally critically ill. LV dysfunction persists. starting to get volume overloaded, but given concern for ongoing cerebral vasospasm, unable to actively diurese patient. sodium wasting persists, but uop downtrending slightly. very hypokalemic today, likely due to steroids. remains intubated, sedated, paralyzed, on flolan. CXR today appears worse with worsening airspace disease. Lactate remains slightly elevated, confirming persistent shock. 10/17: Lung infiltrates dense bilaterally, reflected in shunting and problems with oxygenation. Developed vasospasm on TCDs and required angiogram and intra- arterial verapamil again today. 10/18: SBP 160 - 170 range. FiO2 0.55. BNP > 5000. Not tolerating attempts at maintaining higher BP due to worsening heart failure. Several episodes of vasospasm. Watch daily TCDs closely. Sputum no growth. 10/19: Tmax 99.8. Currently 99. Remains on 4 vasopressors and epoprostenol 10/20: Yesterday. Returned IR for intra-arterial calcium channel jose infusion for vasospasm. Transcranial Dopplers today Still pending. Remains on significant vasopressor support. 10/21: Good response to diuresis, check BNP. TCDs pending. Heart failure remains a major problem. 10/22: CVP 21 - 22, finger tips blue, digits pale white despite high dose milrinone dilation. Greyson and vaso much reduced. Will try diltiazem gtt for digital ischemia. Urine remains > 200/hr and proximal limbs are well perfused. This digital ischemia appears to be a local phenomenon ala Raynaud's. New subcutaneous emphysema right anterior chest wall. 10/23: Old CVL removed. Fingertips remain marginal, some necrotic despite diltiazem and milrinone treatment for digital ischemia. Cardiac output > 7 liters/min and urine copious, confirming good perfusion pressure and flow. This continues to be a local phenomenon of the digits ala Raynaud's. We are trying to wean vasopressors off but are required to maintaining a cerebral perfusion pressure suitable for the treatment of aneurysmal subarachnoid bleed. Frankly, the importance of brain function eclipses fingertips. 10/24: Afebrile. Well perfused except for index finger left hand, few tips fingers right. Arms and hands warmer with resolving circumferential edema. Diltiazem and milrinone gtt continue. Greyson to 10 mics/min. 10/25: Digits are warm and well perfused except left index and right 4th fingertips; demarcated and not viable. Dry. Diltiazem and milrinone infusions continue to help reverse digital ischemia. 10/26: Forced diuresis continues and BP remains nicely elevated. Hands and digits warm aside from left index and right 4th fingertips which have demarcated. 10/27: Good response to diuretics. Perfusion pressure and documented flow excellent. Continue to wean vent. 10/28: Start SBTs. Fluid balance back toward normal. 10/29: Tolerating SBTs. Lowering sedation. Edema resolving. 10/30: Tolerating tube feeds, will taper off TPN and remove central line. Continue diuretics. 10/31: net -3L over 24h. mental status at baseline. tolerating CPAP, but does not have the mental status to protect airway. will likely need trach/peg. placement will be a problem due to lack of funding. 11/01: no changes or improvements. discussed with yesterday and she "does not want any more setbacks" and would prefer trach versus trial of extubation. I agree with her assessment. plan for trach today. placement is still a significant problem. net -2L/24h. 11/02: wbc uptrending, febrile. antonio cultured, started empiric abx today. failed SBT overnight and placed back on rate. 11/03: Tolerating CPAP today, following commands. Low-grade fever cultures pending. WBC count normal today 11/04: Remains on TPs since yesterday. Neuro exam remains stable. Follows commands weakly. Na 152 11/05: Remains off vent for 48 hours now. Sitting up in stretcher chair today. Na improved to 149. remains weak but improving 11/06: Continues to tolerate TPs well. Neuro exam unchanged. Sodium 148 today. Continues to spike intermittent fever Tmax 102.7. 11/07: Continued fevers, no leukocytosis. 11/08: Stable for replacement of bone flap. 11/09: Getting a bit excessively diuresed, will decrease lasix and convert to PO. Fingertips and toes demarcating as expected. No immediate action required except for continued diltiazem therapy. Clearly a Raynaud's type digital ischemia as peripheral perfusion and urine output indicated excellent peripheral perfusion. 11/10: Tracks with eyes today, nods to questions. Failed swallow again. 11/11: Plan for PEG, GI consulted. Bone flap replacement on hold due to blood cultures and fever. 11/12: May get PEG today, Bone flap to be replaced coming week per Dr. Perry. Afebrile no white count 11/13: Neuro exam unchanged. Na was 150 yesterday, repeat CMP pending. Left flap remains sunken 11/14: emesis overnight with ? aspiration event. no increased o2 requirement, but fever to 102.5 today. recultured. no complaints from patient. 11/15: no changes. still low suspicion for infection. awaiting ID clearance for bone flap replacement. also awaiting placement Objective Vital Signs Date Time Temp Pulse Resp B/P (MAP) Pulse Ox O2 Delivery O2 Flow Rate FiO2 11/15/16 14:00 90 11/15/16 12:00 98.5 24 120/82 (95) 99 11/15/16 09:11 T-piece 28 11/15/16 07:00 5.00 Intake and Output 11/15/16 11/15/16 11/15/16 07:59 15:59 23:59 Intake Total 636 ml 200 ml Output Total 550 ml Balance 86 ml 200 ml Result Diagram: 11/15/16 0530 11/15/16 0530 Imaging Last Impressions Chest X-Ray 10/20/16 0000 Signed Impressions: Service Date/Time: October 03:47 - CONCLUSION: 1. Stable tubes and lines. 2. Stable bilateral lower lung zone airspace disease. 3. Stable small right pleural effusion. 4. No significant interval change. Kev Vergara MD Transcranial Doppler Study Complete 10/19/16 0600 Signed Impressions: Service Date/Time: Wednesday, October 19, 2016 08:02 - CONCLUSION: Suspect developing right MCA vasospasm Yosvany Polk MD Liver Ultrasound 10/19/16 0000 Signed Impressions: Service Date/Time: Wednesday, October 19, 2016 11:20 - CONCLUSION: 1. Sludge filled gallbladder with thickened wall. 2. Moderate size bilateral pleural effusions and mild upper abdominal ascites. Santos Vazquez MD Head CT 10/17/16 0000 Signed Impressions: Service Date/Time: Monday, October 17, 2016 15:06 - CONCLUSION: Ventricles are slightly larger without ventriculostomy. Edema in the left hemisphere the brain herniating through the operative site. Remington Woodward MD FACR Cerebral Arteriogram 10/17/16 0000 Signed Impressions: Service Date/Time: Monday, October 17, 2016 00:00 - CONCLUSION: 1. Uncompensated spasmolysis of the left middle cerebral artery Harvey Morejon MD Infusion Non-thrombolysis 10/14/16 1103 Signed Impressions: Service Date/Time: Friday, October 14, 2016 10:21 - CONCLUSION: 1. Uncomplicated infusion for spasmolysis Harvey Morejon MD Neck CTA 10/07/16 0000 Signed Impressions: Service Date/Time: Friday, October 07, 2016 15:03 - CONCLUSION: 1. Mild carotid bulb atherosclerotic calcification bilaterally. However, no significant stenosis is present in either internal carotid artery. 2. Paranasal sinus mucoperiosteal thickening. 3. Please refer to brain CTA report for description of the intracranial findings. Yosvany Ramirez MD Head CTA 10/07/16 0000 Signed Impressions: Service Date/Time: Friday, October 07, 2016 15:03 - CONCLUSION: 1. 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 2. Large left subdural hematoma measuring 1.3 cm in depth with a significant, 1.6 cm left to right subfalcine shift. Joni Shelton MD Objective Remarks GENERAL: 56-year-old male. alert. HEAD: Status post left craniectomy. Left flap sunken, Incision healing well EYES: About 3 mm bilaterally and reactive NECK: Trachea midline. 8.0 Shiley cuffed trach, site clean, dry. CARDIOVASCULAR: normal rate, regular rhythm. sinus by tele. RESPIRATORY: on trach collar. equal chest rise. GASTROINTESTINAL: Abdomen soft, non-tender, nondistended. MUSCULOSKELETAL: Ischemic changes worst to left index finger tip, right 4th fingertip, and majority of R toes. Demarcating, dry. NEURO EXAM: Opens eyes and follows command, right UE weaker than left, follows commands x4. Mouthing words Procedures 10/13 Four-vessel cerebral angiography with verapamil treatment of vasospasm A/P Assessment and Plan Neuro/Psych Status post left frontotemporal parietal craniectomy 10/08 for evacuation subdural hematoma/duraplasty Left subdural hematoma - 1.3 cm with 1.6 shift left to right Subarachnoid hemorrhage Alvarado and Rodriguez 5, Carroll grade 4 - left P-comm status post 4 coiling 10/08 - Nimodipine completed 21 days. Initiated 10/13. - Levetiracetam 500 mg per tube q12h. - 10/13 and 10/14 and 10/17) 10/19 left MCA territory vasospasm, status post successful verapamil treatment by IR with 20 mg verapamil - SBP goal now <140. - 10/17 CT brain - less hemisphere edema with herniation through left craniotomy site, now improved. - Dr. Perry/neurosurgery. Plan to replace bone flap this week. Respiratory: Acute hypoxic Respiratory failure-ARDS- resolved Noncardiogenic/neurogenic pulmonary edema- resolved. Chronic respiratory failure requiring tracheostomy -- Nebs, HOB at 30 degrees. Remains on TP several days -- Albuterol/Atrovent every 6 hours with albuterol aerosols every 2 hours for Dyspnea -- continue TP 24/7 as tolerated. Up to stretcher chair daily -- s/p Trach Dr. Sullivan/Dr. Collazo 11/01 Cardiovascular: Septic and cardiogenic shock- resolved. LV dysfunction secondary to SAH - persistent, now resolved Elevated troponin- secondary to SAH, unlikely to be ACS. - resolved. Pulmonary hypertension Continue diuresis. Na elevated, but did not get free water due to PEG tube placement 11/12. free water 200mL per tube q6h. Echocardiogram 10/14/16 revealed EF 40-45%. Septal hypokinesis. Moderate MR. Severe pulmonary hypertension with pulmonary artery pressures estimated 61 mmHg Limited Echo 11/06: LVEF 60-65%, Trivial mitral and tricuspid regurgitation, No vegetations noted. Renal: Cerebral Salt Wasting/SIADH-resolved now hypernatremic Strict I/Os. See FEN below. Creatinine currently within normal limits -> resolved. FEN/GI: Severe hyponatremia-resolved now hypernatremic Hypokalemia Elevated transaminases Hyperammonemia - DCd sodium chloride 3gm po TID 11/04 - free water per tube increase to 300mL po q4h. - ICU electrolyte protocol. aggressively replace potassium losses. - Lansoprazole 30 mg by tube daily for GI prophylaxis - Docusate sodium 100 mg twice a day, senna liquid 8.6 mg twice a day and polyethylene glycol 3350 17 g twice a day for bowel regimen - Lactulose 30 cc QID. ammonia 46 on 10/31, 37 on 11/04 - NPO per speech, Continue NGT feeding, Failed swallow eval again 11/11. s/p PEG 11/12/16 Heme/ID: Septic Shock- resolved. Possible HCAP New Fever, leukocytosis, staph epi bacteremia - limited Echo to evaluate vegetation-neg. DCd Dilantin. ID following, cleared for bone flap replacement - Digital Ischemia with necrosis, conservative management - s/p Diltiazem and milrinone infusions - Digits have demarcated, allow auto amputation. Cardizem PO (for digital ischemia, Raynaud's) Pertinent cultures 10/15 - blood cultures - 1 out of 4 anaerobic gram-negative cocci possibly Veillonella 10/15 - sputum - beta strep not A, strep species 10/19 cultures NG 10/21 1/4 bottles blood cultures coag negative staph. Culture 11/01. coag neg stah /4 bottles s/p Levaquin x 7 days end 11/15/16 Diflucan duration per ID (started 11/06/16) Endocrine: Presumed Adrenal Insufficiency Discontinued fludrocortisone 10/18. Sliding-scale insulin with NovoLog -Accu-Cheks every 4 hours to maintain euglycemia d/cd Levemir bid. Taper off cortisone -> done Prophylaxis: GI Prophylaxis - lansoprazole DVT Prophylaxis-- SCDs, heparin subcutaneous Lines: - 10/14 right SC TLC, removed 10/22 - 10/14 right radial art line, removed 10/14 - 10/15 left radial art line, removed 10/16 - 10/22 left groin triple lumen placed, d/c 10/30 - d/c ramires. Overall impression: No change. follow up culture from new fever, does not appear infected. needs bone flap replaced and placement. The patient's digital ischemia developed when he had a cardiac output over 8.0 liters/min, CVP was over 20 mm Hg, and urine over 75 ml/hr for many days. BNP was elevated at 777. His hands and feet were warm but the fingers and toes became cold, white, nearly cadaveric. Greyson synephrine was only vasopressor and it was at 30 units/min only. We stopped it immediately and started milrinone and cardizem iv infusions. Most fingers and toes responded well to the vascular dilators but a few digits demarcated and became necrotic. Anticoagulation was not an option in face of recent aneurysm rupture and gastritis. Patients with this degree of digital ischemia (severe Raynaud's) usually have an underlying illness such as malignancy, mixed connective tissue disorder, collagen vascular disease, rheumatoid disease, etc. This workup can progress after he has cleared exogenous steroids which were just stopped. He's in a pretty revved up inflammatory state now and the lab values will be altered by it. Overall impression: Stable for replacement of bone flap, cleared by ID. s/p PEG. Digit tips remain dry; allow to autoamputate. If hypernatremia improves, can transfer to neuro floor Walter Sullivan MD Nov 15, 2016 18:49
[2016-11-15] MEDS: MELATONIN 5 MG TAB PO SCH (20:33)
[2016-11-16] VITALS (18 sets, daily range): BP systolic 110–139; BP diastolic 73–88; PULSE 83–116; RESP 22–25; TEMP 98.1–99.6; O2SAT 95–100
[2016-11-16] MEDS: CHLORHEXIDINE GLUCONATE 2 % 1 PACK (2 CLOTHS) TOP SCH (04:00)
[2016-11-16] MEDS: FREE WATER G-TUBE SCH ×7 (04:00→23:05)
[2016-11-16] MEDS: DILTIAZEM HCL 90 MG TAB PO SCH ×4 (05:45→23:15)
[2016-11-16] MEDS: HYDROmorphone HCL PF 1 MG/ML VIAL IV PUSH PRN (05:50)
--- NOTE | 2016-11-16 06:17 | RADRPT ---
EXAM DATE/TIME: 11/16/2016 05:45 [facility] COMPARISON: No previous studies available for comparison. INDICATIONS : Short of breath, respiratory failure. MEDICAL HISTORY : Seizures. Subarachnoid hemorrhage. Hypertension SURGICAL HISTORY : Craniotomy. Ventriculostomy ENCOUNTER: Subsequent ACUITY: 1 month PAIN SCORE: 0/10 LOCATION: Bilateral chest FINDINGS: Faint airspace opacities are again noted left base and right mid lung/base. No large effusion seen. N o pneumothorax. Heart size stable, normal. Tracheostomy tube again noted. CONCLUSION: No significant change bilateral airspace opacities. Yosvany Butler MD on November 16, 2016 at 6:15 Board Certified Radiologist. This report was verified electronically.
[2016-11-16 06:53] LABS: BLOOD GAS BASE EXCESS 0.2 mmol/L (-2-2); BLOOD GAS CARBOXYHEMOGLOBIN 1.1 % (0-4); BLOOD GAS HCO3 24 mmol/L (22-26); BLOOD GAS METHEMOGLOBIN 0.9 % (0-2); BLOOD GAS O2 HGB SATURATION 93 % (90-100); BLOOD GAS OXYGEN CONTENT 13.8 Vol % (12.0-20.0); BLOOD GAS PCO2 33 mmHg (38-42); BLOOD GAS PO2 76 mmHg (61-120); BLOOD GAS TOTAL HGB 10.5 G/DL (12.0-16.0); CRITICAL VALUE NO; OXYGEN DEVICE VENTILATOR; TEMP CORR TO 98.6
[2016-11-16 06:54] LABS: DRAW SITE RT BRACHIAL; FIO2 100 %; NUMBER OF ARTERIAL PUNCTURES 1; STAT NO
[2016-11-16] MEDS: RESP: ACETYLCYSTEINE 20% 30 ML NEB NEB SCH ×3 (07:56→20:18)
[2016-11-16] MEDS: RESP: ALBUTEROL 2.5 MG/IPRATROPIUM 0.5 MG NEB (SCH) NEB ×3 (07:56→20:18)
[2016-11-16 09:00] LABS: HEMATOCRIT 35.3 % (39.0-51.0); MEAN CELL VOLUME 96.6 FL (80.0-100.0); MEAN CORPUSCULAR HEMOGLOBIN 32.5 PG (27.0-34.0); MEAN CORPUSCULAR HGB CONC 33.7 % (32.0-36.0); PLATELET COUNT 447 TH/MM3 (150-450); RED BLOOD COUNT 3.65 MIL/MM3 (4.50-5.90); RED CELL DISTRIBUTION WIDTH 14.8 % (11.6-17.2); REVIEW FLAG FINAL; WHITE BLOOD COUNT 8.2 TH/MM3 (4.0-11.0)
[2016-11-16] MEDS: BENEPROTEIN POWDER 1 PACK G-TUBE SCH ×3 (09:00→17:29)
[2016-11-16] MEDS: LACTOBACILLUS ACIDOPHILUS TAB PO SCH ×3 (09:23→17:29)
[2016-11-16] MEDS: levETIRAcetam 500 MG/5 ML UDC NG SCH ×2 (09:23→19:58)
[2016-11-16] MEDS: FLUCONAZOLE 100 MG TAB PO SCH (09:23)
[2016-11-16] MEDS: FUROSEMIDE 40 MG/5 ML UNIT DOSE CUP NG SCH (09:23)
[2016-11-16] MEDS: LANSOPRAZOLE SOLUTAB 30 MG TAB NG SCH (09:23)
[2016-11-16] MEDS: ARTIFICIAL TEARS OPTH SOLN 15 ML BTL EACH EYE SCH ×3 (09:24→17:29)
[2016-11-16] MEDS: CHLORHEXIDINE 0.12% (ORAL KIT) 15 ML CUP MT SCH ×2 (09:24→19:59)
[2016-11-16] MEDS: SODIUM CHLORIDE 0.9% FLUSH 10 ML FLUSH IV FLUSH SCH ×2 (09:25→19:59)
[2016-11-16 09:34] LABS: BICARBONATE 24.6 MEQ/L (21.0-32.0); POTASSIUM 4.4 MEQ/L (3.5-5.1)
--- NOTE | 2016-11-16 10:18 | HHI.CCPN ---
Subjective Remarks/Hospital Course 10/07: 56-year-old male presents with intracranial bleed. Patient was transferred from [facility] at [facility]. As per the paramedics and the nurse who assisted the patient said that patient earlier this morning was coming down the stairs when he started feeling some left-sided weakness and numbness. He called 911 and by the time EMS arrived they detected some deficit and called a stroke alert. Patient was taken to [facility]. When patient arrived his mental status started to decline and he was intubated emergently in the ER. A CAT scan of the head showed subarachnoid and subdural bleed. He was taking emergently to an angio suite for coiling of the aneurysm and later on to OR for subdural hematoma evacuation. 10/08: Remains sedated, orally intubated on mechanical ventilation. Arouses off sedation and following commands with both upper extremities earlier. Ventriculostomy in place. ICP 7, CPP mid 80s. 10/09: Remains sedated, orally intubated on mechanical ventilation. Arouses off sedation and follows commands with both upper extremities. Ventriculostomy in place. 10/10: Remains sedated, orally intubated on mechanical ventilation. Arouses off sedation and follows commands and both upper extremities. Ventriculostomy in place. ICP 5. Failed C Pap trial yesterday. 10/11: Extubated on 10/10, tolerating well. Awake and alert. Appears confused, moving all 4 extremities. Ventriculostomy discontinued today by neurosurgery 10/13: Patient has developed severe vasospasm at the left MCA territory on TCD's that was treated with IV route verapamil 10/14: patient extubated overnight. was originally following commands and neuro intact. TCDs this morning with increase LIs over yesterday, particularly Left MCA territory. On my evaluation early this morning, patient was aphasic, not moving the right side of his body, not following commands. SBP 140s at that time. net 2L negative/24h and uop almost 1L/hr at the time. I immediately bolused with 2L NS iv, placed arterial and central lines, started phenylephrine , increased SBP to goal 200 - 220 mmHg. called interventional neuroradiology and accompanied patient down personally to IR for IA verapamil again. I remained with the patient managing his hemodynamics down in IR and providing anxiolysis IV. I accompanied patient back up to [facility] where patient again was neuro intact and following commands. Sodium downtrending to 135 and urine studies and serum osms suggestive of urine sodium losses and high uop. added Florinef to mitigate sodium losses, and increased mivf to 500cc/hr to maintain euvolemia. later in the day patient decompensated requiring intubation for hyoxemia, cxr suggestive of pulmonary edema. 2d echo with evidence of EF 40%, septal hypokinesis, moderate MR. On levo, vaso, phenylephrine. difficult to get to goal SBP 200 mmHg, likely due to myocardial dysfunction. decreased goal to 180 - 200 mmHg to balance cardiac vs. neurologic goals. 10/15 Patient was discussed with Dr. Sullivan at shift change. Isuprel was initiated in effort to improve cardiac output as dobutamine not available and concerned with use of milrinone given long half life. Systolic blood pressure was relatively stable with perhaps some modest improvement from 170s to 180s for several hours after initiation. Notified when patient became abruptly hypotensive despite vasopressin, levophed 20 mcg/min, Greyson-Synephrine 300 mcg/m. He was also hypoxemic with sats in 80s despite PCV with PEEP 8 and FiO2 100%, respiratory rate in the 30s. He had decreased breath sounds bilaterally and was concerned for air trapping so removed from mechanical ventilation and bagged without improvement. Placed patient back on mechanical ventilation and provide recruitment maneuvers and increased PEEP to 12 which resulted in improvement of sats to 88% to 92%. Ordered Flolan. Discontinued isuprel and initiated epinephrine. R radial art line would not draw blood . Performed u/s guided femoral artery stick to confirm hypoxemia on ABG given poor wave form on pulse ox and PaO2 was 58. Placed new L radial art line and this resulted in ~ 30 point increase in SBP relative to prior line but patient ultimately on vasopressin, levophed 30 micrograms per minute, Greyson-Synephrine 300 micrograms per minute, epinephrine 12 mcg/min and unable to maintain target pressure (SBP in 150s). Given calcium chloride. patient with shaking movements all extremities, pupils 2mm and sluggish, no eye deviation. Rigors seemed most likely but unable to emergently rule out seizures so loaded with fosphenytoin to avoid secondary injury from seizure activity. WBC increasing and concern for HCAP so pancultured and placed on cefepime, vancomycin, azithromycin. Hydrocortisone 100 mg IV every 8 hours initiated due to concern for septic shock in a patient who has been refractory to all other above measures. Patient is to hemodynamically unstable and hypoxic for transport for neurologic imaging. Urine output has declined to 180-200 ML's per hour. Back off maintenance IV fluids to 200 ML's per hour. Bedside echo demonstrates decreased LV function with normal RV contractility and collapsible IVC suggesting ongoing maintenance fluid administration is appropriate. 10/15 additional visit: continued to deteriorate throughout the day. Seen multiple times. hypoxic on 100% fio2, flolan. required nimbex drip to maintain. repeat bedside critical care ultrasound still demonstrates severe LV dysfunction , decompressed RV, IVC more dilated than previous echo overnight, however still with respiratory variation. femoral arterial line placed with better waveform and higher pressure (likely SVR too high to allow accurate measurement of radial pressure). Pulse contour analysis without stroke volume variation, CI 3.6. SV 52mL. trialed additional albumin without improvement in hemodynamics. uop slower than before, but still significant salt wasting in the urine- sodium dropped to 125 from 132 despite already on 3% nacl infusion and aggressive sodium replacements. forced to give 23% nacl and salt tabs. declining clinically despite maximal therapy. 10/16: continues to be maximally critically ill. LV dysfunction persists. starting to get volume overloaded, but given concern for ongoing cerebral vasospasm, unable to actively diurese patient. sodium wasting persists, but uop downtrending slightly. very hypokalemic today, likely due to steroids. remains intubated, sedated, paralyzed, on flolan. CXR today appears worse with worsening airspace disease. Lactate remains slightly elevated, confirming persistent shock. 10/17: Lung infiltrates dense bilaterally, reflected in shunting and problems with oxygenation. Developed vasospasm on TCDs and required angiogram and intra- arterial verapamil again today. 10/18: SBP 160 - 170 range. FiO2 0.55. BNP > 5000. Not tolerating attempts at maintaining higher BP due to worsening heart failure. Several episodes of vasospasm. Watch daily TCDs closely. Sputum no growth. 10/19: Tmax 99.8. Currently 99. Remains on 4 vasopressors and epoprostenol 10/20: Yesterday. Returned IR for intra-arterial calcium channel jose infusion for vasospasm. Transcranial Dopplers today Still pending. Remains on significant vasopressor support. 10/21: Good response to diuresis, check BNP. TCDs pending. Heart failure remains a major problem. 10/22: CVP 21 - 22, finger tips blue, digits pale white despite high dose milrinone dilation. Greyson and vaso much reduced. Will try diltiazem gtt for digital ischemia. Urine remains > 200/hr and proximal limbs are well perfused. This digital ischemia appears to be a local phenomenon ala Raynaud's. New subcutaneous emphysema right anterior chest wall. 10/23: Old CVL removed. Fingertips remain marginal, some necrotic despite diltiazem and milrinone treatment for digital ischemia. Cardiac output > 7 liters/min and urine copious, confirming good perfusion pressure and flow. This continues to be a local phenomenon of the digits ala Raynaud's. We are trying to wean vasopressors off but are required to maintaining a cerebral perfusion pressure suitable for the treatment of aneurysmal subarachnoid bleed. Frankly, the importance of brain function eclipses fingertips. 10/24: Afebrile. Well perfused except for index finger left hand, few tips fingers right. Arms and hands warmer with resolving circumferential edema. Diltiazem and milrinone gtt continue. Greyson to 10 mics/min. 10/25: Digits are warm and well perfused except left index and right 4th fingertips; demarcated and not viable. Dry. Diltiazem and milrinone infusions continue to help reverse digital ischemia. 10/26: Forced diuresis continues and BP remains nicely elevated. Hands and digits warm aside from left index and right 4th fingertips which have demarcated. 10/27: Good response to diuretics. Perfusion pressure and documented flow excellent. Continue to wean vent. 10/28: Start SBTs. Fluid balance back toward normal. 10/29: Tolerating SBTs. Lowering sedation. Edema resolving. 10/30: Tolerating tube feeds, will taper off TPN and remove central line. Continue diuretics. 10/31: net -3L over 24h. mental status at baseline. tolerating CPAP, but does not have the mental status to protect airway. will likely need trach/peg. placement will be a problem due to lack of funding. 11/01: no changes or improvements. discussed with yesterday and she "does not want any more setbacks" and would prefer trach versus trial of extubation. I agree with her assessment. plan for trach today. placement is still a significant problem. net -2L/24h. 11/02: wbc uptrending, febrile. antonio cultured, started empiric abx today. failed SBT overnight and placed back on rate. 11/03: Tolerating CPAP today, following commands. Low-grade fever cultures pending. WBC count normal today 11/04: Remains on TPs since yesterday. Neuro exam remains stable. Follows commands weakly. Na 152 11/05: Remains off vent for 48 hours now. Sitting up in stretcher chair today. Na improved to 149. remains weak but improving 11/06: Continues to tolerate TPs well. Neuro exam unchanged. Sodium 148 today. Continues to spike intermittent fever Tmax 102.7. 11/07: Continued fevers, no leukocytosis. 11/08: Stable for replacement of bone flap. 11/09: Getting a bit excessively diuresed, will decrease lasix and convert to PO. Fingertips and toes demarcating as expected. No immediate action required except for continued diltiazem therapy. Clearly a Raynaud's type digital ischemia as peripheral perfusion and urine output indicated excellent peripheral perfusion. 11/10: Tracks with eyes today, nods to questions. Failed swallow again. 11/11: Plan for PEG, GI consulted. Bone flap replacement on hold due to blood cultures and fever. 11/12: May get PEG today, Bone flap to be replaced coming week per Dr. Perry. Afebrile no white count 11/13: Neuro exam unchanged. Na was 150 yesterday, repeat CMP pending. Left flap remains sunken 11/14: emesis overnight with ? aspiration event. no increased O2 requirement, but fever to 102.5 today. recultured. no complaints from patient. 11/15: No changes. still low suspicion for infection. Awaiting ID clearance for bone flap replacement. also awaiting placement SUBJ 11/16: Placed on full ventilator support overnight for acute hypoxemic respiratory failure due to mucous plugging. Mucomyst added. Not on any sedation. Chest x-ray back to baseline-no need a bronchoscopy at this time, but will do if there is recurrent plugging. Will check sputum culture, and trach site culture Objective Vital Signs Date Time Temp Pulse Resp B/P (MAP) Pulse Ox O2 Delivery O2 Flow Rate FiO2 11/16/16 07:50 98 90 11/16/16 06:00 88 11/16/16 04:00 98.1 24 139/88 (105) 11/15/16 20:00 T-Piece 5.00 Intake and Output 11/16/16 11/16/16 11/17/16 08:00 16:00 00:00 Intake Total 1022 ml Output Total 900 ml Balance 122 ml Result Diagram: 11/16/16 0828 11/16/16827 Other Results Laboratory Tests Test 11/16/16 06:38 Blood Gas Puncture Site RT BRACHIAL Blood Gas Patient Temperature 98.6 Blood Gas HCO3 24 mmol/L (22-26) Blood Gas Base Excess 0.2 mmol/L (-2-2) Blood Gas Oxygen Saturation 93 % (90-100) Arterial Blood pH 7.46 (7.380-7.420) Arterial Blood Partial Pressure CO2 33 mmHg (38-42) Arterial Blood Partial Pressure O2 76 mmHg (61-120) Arterial Blood Oxygen Content 13.8 Vol % (12.0-20.0) Arterial Blood Carboxyhemoglobin 1.1 % (0-4) Arterial Blood Methemoglobin 0.9 % (0-2) Blood Gas Hemoglobin 10.5 G/DL (12.0-16.0) Oxygen Delivery Device VENTILATOR Blood Gas Ventilator Setting SEE COMMENT Blood Gas Inspired Oxygen 100 % Imaging Last Impressions Chest X-Ray 10/20/16 0000 Signed Impressions: Service Date/Time: October 03:47 - CONCLUSION: 1. Stable tubes and lines. 2. Stable bilateral lower lung zone airspace disease. 3. Stable small right pleural effusion. 4. No significant interval change. Kev Vergara MD Transcranial Doppler Study Complete 10/19/16 0600 Signed Impressions: Service Date/Time: Wednesday, October 19, 2016 08:02 - CONCLUSION: Suspect developing right MCA vasospasm Yosvany Polk MD Liver Ultrasound 10/19/16 0000 Signed Impressions: Service Date/Time: Wednesday, October 19, 2016 11:20 - CONCLUSION: 1. Sludge filled gallbladder with thickened wall. 2. Moderate size bilateral pleural effusions and mild upper abdominal ascites. Santos Vazquez MD Head CT 10/17/16 0000 Signed Impressions: Service Date/Time: Monday, October 17, 2016 15:06 - CONCLUSION: Ventricles are slightly larger without ventriculostomy. Edema in the left hemisphere the brain herniating through the operative site. Remington Woodward MD FACR Cerebral Arteriogram 10/17/16 0000 Signed Impressions: Service Date/Time: Monday, October 17, 2016 00:00 - CONCLUSION: 1. Uncompensated spasmolysis of the left middle cerebral artery Harvey Morejon MD Infusion Non-thrombolysis 10/14/16 1103 Signed Impressions: Service Date/Time: Friday, October 14, 2016 10:21 - CONCLUSION: 1. Uncomplicated infusion for spasmolysis Harvey Morejon MD Neck CTA 10/07/16 0000 Signed Impressions: Service Date/Time: Friday, October 07, 2016 15:03 - CONCLUSION: 1. Mild carotid bulb atherosclerotic calcification bilaterally. However, no significant stenosis is present in either internal carotid artery. 2. Paranasal sinus mucoperiosteal thickening. 3. Please refer to brain CTA report for description of the intracranial findings. Yosvany Ramirez MD Head CTA 10/07/16 0000 Signed Impressions: Service Date/Time: Friday, October 07, 2016 15:03 - CONCLUSION: 1. 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 2. Large left subdural hematoma measuring 1.3 cm in depth with a significant, 1.6 cm left to right subfalcine shift. Joni Shelton MD Objective Remarks GENERAL: 56-year-old male. On full vent support. HEAD: Status post left craniectomy. Left flap sunken, Incision healing well EYES: About 3 mm bilaterally and reactive NECK: Trachea midline. 8.0 Shiley cuffed trach, minimally elevated remains surrounding the trach site CARDIOVASCULAR: normal rate, regular rhythm. sinus by tele. RESPIRATORY: On full vent support vias trach. Bilateral course rhonchi GASTROINTESTINAL: Abdomen soft, non-tender, nondistended. MUSCULOSKELETAL: Ischemic changes worst to left index finger tip, right 4th fingertip, and majority of R toes. Demarcating, dry. NEURO EXAM: Opens eyes and follows command, right UE weaker than left, follows commands x4. Procedures 10/13 Four-vessel cerebral angiography with verapamil treatment of vasospasm A/P Assessment and Plan Neuro/Psych Status post left frontotemporal parietal craniectomy 10/08 for evacuation subdural hematoma/duraplasty Left subdural hematoma - 1.3 cm with 1.6 shift left to right Subarachnoid hemorrhage Alvarado and Rodriguez 5, Carroll grade 4 - left P-comm status post 4 coiling 10/08 - Nimodipine completed 21 days. Initiated 10/13. - Levetiracetam 500 mg per tube q12h. - 10/13 and 10/14 and 10/17) 10/19 left MCA territory vasospasm, status post successful verapamil treatment by IR with 20 mg verapamil - SBP goal now <140. - 10/17 CT brain - less hemisphere edema with herniation through left craniotomy site, now improved. - Dr. Perry/neurosurgery. Plan to replace bone flap when cleared by ID Respiratory: Acute hypoxic Respiratory failure secondary to mucous plugging Possible healthcare associated pneumonia ARDS- resolved Noncardiogenic/neurogenic pulmonary edema- resolved. Chronic respiratory failure requiring tracheostomy -- Nebs, HOB at 30 degrees. Full vent support, PRVC mode -- Albuterol/Atrovent every 6 hours with albuterol aerosols every 2 hours for Dyspnea. Mucomyst added -- May need therapeutic bronchoscopy -- Follow-up on sputum culture -- s/p Trach Dr. Sullivan/Dr. Collazo 11/01 Cardiovascular: Septic and cardiogenic shock- resolved. LV dysfunction secondary to SAH - persistent, now resolved Elevated troponin- secondary to SAH, unlikely to be ACS. - resolved. Pulmonary hypertension Continue diuresis. free water 200mL per tube q6h. Echocardiogram 10/14/16 revealed EF 40-45%. Septal hypokinesis. Moderate MR. Severe pulmonary hypertension with pulmonary artery pressures estimated 61 mmHg Limited Echo 11/06: LVEF 60-65%, Trivial mitral and tricuspid regurgitation, No vegetations noted. Renal: Cerebral Salt Wasting/SIADH-resolved now hypernatremic Strict I/Os. See FEN below. Creatinine currently within normal limits -> resolved. FEN/GI: Severe hyponatremia-resolved now hypernatremic Hypokalemia Elevated transaminases Hyperammonemia - DCd sodium chloride 3gm po TID 11/04 - free water per tube increase to 300mL po q4h. - ICU electrolyte protocol. aggressively replace potassium losses. - Lansoprazole 30 mg by tube daily for GI prophylaxis - Docusate sodium 100 mg twice a day, senna liquid 8.6 mg twice a day and polyethylene glycol 3350 17 g twice a day for bowel regimen - Lactulose 30 cc QID. ammonia 46 on 10/31, 37 on 11/04 - NPO per speech, Continue PEG feeding. s/p PEG 11/12/16 Heme/ID: Septic Shock- resolved. Possible HCAP New Fever, leukocytosis, staph epi bacteremia - limited Echo to evaluate vegetation-neg. DCd Dilantin. ID following - Follow-up on sputum culture, trach site culture - Digital Ischemia with necrosis, conservative management - s/p Diltiazem and milrinone infusions - Digits have demarcated, allow auto amputation. Cardizem PO (for digital ischemia, Raynaud's) Pertinent cultures 10/15 - blood cultures - 1 out of 4 anaerobic gram-negative cocci possibly Veillonella 10/15 - sputum - beta strep not A, strep species 10/19 cultures NG 10/21 1/ bottles blood cultures coag negative staph. Culture 11/01. coag neg stah / bottles s/p Levaquin x 7 days end 11/15/16 Diflucan duration per ID (started 11/06/16) Endocrine: Presumed Adrenal Insufficiency Discontinued fludrocortisone 10/18. Sliding-scale insulin with NovoLog -Accu-Cheks every 4 hours to maintain euglycemia d/cd Levemir bid. Taper off cortisone -> done Prophylaxis: GI Prophylaxis - lansoprazole DVT Prophylaxis-- SCDs, heparin subcutaneous Lines: - 10/14 right SC TLC, removed 10/22 - 10/14 right radial art line, removed 10/14 - 10/15 left radial art line, removed 10/16 - 10/22 left groin triple lumen placed, d/c 10/30 - d/c ramires. Overall impression: No change. follow up culture from new fever, does not appear infected. needs bone flap replaced and placement. The patient's digital ischemia developed when he had a cardiac output over 8.0 liters/min, CVP was over 20 mm Hg, and urine over 75 ml/hr for many days. BNP was elevated at 777. His hands and feet were warm but the fingers and toes became cold, white, nearly cadaveric. Greyson synephrine was only vasopressor and it was at 30 units/min only. We stopped it immediately and started milrinone and cardizem iv infusions. Most fingers and toes responded well to the vascular dilators but a few digits demarcated and became necrotic. Anticoagulation was not an option in face of recent aneurysm rupture and gastritis. Patients with this degree of digital ischemia (severe Raynaud's) usually have an underlying illness such as malignancy, mixed connective tissue disorder, collagen vascular disease, rheumatoid disease, etc. This workup can progress after he has cleared exogenous steroids which were just stopped. He's in a pretty revved up inflammatory state now and the lab values will be altered by it. Overall impression: Acute events yesterday noted developed acute hypoxemic respiratory failure, due to mucus plugging currently on full vent support. If lung recruitment doesn't improve hypoxia may need therapeutic bronchoscopy Harvey Bar MD Nov 16, 2016 10:18
--- NOTE | 2016-11-16 11:32 | PD.WCN.NOT ---
Wound Consult Description: Follow up of previous DTI Communicated with: JOSE CRUZ Spangler Recommendation: Please cleanse bilateral buttocks/sacrum area gently when soiled. Apply thick layer of calazime barrier cream over sacrum, coccyx, and bilateral buttock areas and leave open to air. Continue to turn and reposition patient every 2 hours from left to right and PRN for comfort Additional Information: Patient seen on [facility] for follow up of wound to bilateral buttocks/sacrum. Patient was positioned to his left side for assessment with assistance from JOSE CRUZ Spangler. Patient has a wound in the shape of a V on his right buttock measuring 6cm x 1.8cm x 0.3cm with ~95% moist red non granulating tissue and ~5 % white tissue noted in wound bed without odor and without active drainage. Wound margins are jagged and sharp indicating a moisture/friction/pressure etiology. Periwound is noted with a DTI measuring 3cm x 0.3cm. Left buttock wound measures 4.6cm x 1.5cm x 0.2cm with 100% red non granulating tissue noted throughout wound bed with no odor and no active drainage. Wound margins are sharp and open with dry peeling denuded skin noted to periwound. Wounds were cleansed with NS and gauze prior to applying thick layer of Calazime skin protectant over bilateral buttocks and sacrum. Patient is noted on an Advanced IV specialty surface with 1 ultrasorb underneath him for moisture. Recommendations for Calazime BID and PRN remain unchanged. Patient is being followed by wound care team. Shyla Weir [facility] Nov 16, 2016 11:32
--- NOTE | 2016-11-16 13:23 | HHI.IDPN ---
Subjective Subjective Remarks Patient is a 56-year-old male, initially admitted at [facility] after he developed acute onset of left-sided weakness and numbness. In [facility] emergency room his mental status deteriorated, and he required intubation. CT of the head showed subarachnoid bleed. He was transferred to [facility] for neurosurgical evaluation and treatment. Patient underwent angiogram and coiling of his aneurysm. He also underwent emergency surgery and had left frontal temporal parietal decompressive craniectomy, duraplasty, and evacuation of a subdural hematoma. He had a ezio hole and the ventriculostomy placement. His hospitalization was complicated by significant vasospasm of his cerebral arteries, and he had multiple angiogram and treatment of the vasospasm. He also had problem with significant LV dysfunction in both volume overload. His had hyponatremia that has been treated and corrected. He initially started having fevers and some clinical deterioration as far as infection around the first week of October. He had a sputum culture that had pneumococcus, beta- hemolytic strep and Haemophilus. He had one out of 2 blood culture that had anaerobic gram-negative cocci. He was on antibiotics up until October 23. Patient also required significant amount of pressors to maintain an adequate blood pressure to ensure cerebral perfusion. 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 Patient eventually underwent tracheostomy for his continued respiratory requirement, and had this procedure done November 01. Patient currently has been doing quite well and not requiring ventilatory support, and on T piece. Starting November 02 he started having fevers again as well as increased WBC. Repeat cultures at that time grew 2 blood cultures that had coag-negative staph. His central lines have been removed. Patient also has had liquid stool, but C. difficile is negative. Urinalysis done was unremarkable. Patient was started back on antibiotics on November 02 and has been on cefepime and IV vancomycin. He continues to have fevers. His WBC has been down to normal. His last chest x- ray yesterday showing stable infiltrates. He has no central line. He has a Maldonado catheter in place. He has an NG tube and gets tube feedings. Infectious disease consultation has been requested to evaluate the patient for persistent fevers. Notes reviewed Back on the vent Problems with mucus plugging CXR with stable infiltrates WBC normal S/P PEG 11/11 Finished Levaquin yesterday Antibiotics Levaquin - finished 11/15 Diflucan Lines PIV Past Medical History Hypertension Past Surgical History Status post trach Status post craniectomy for evacuation of subdural hematoma Allergies: Coded Allergies: No Known Allergies (Unverified , 05/06/16) Objective . Vital Signs Date Time Temp Pulse Resp B/P (MAP) Pulse Ox O2 Delivery O2 Flow Rate FiO2 11/16/16 12:50 40 11/16/16 12:19 99 50 11/16/16 12:00 99.2 98 25 111/78 (89) 100 11/16/16 12:00 55 11/16/16 12:00 98 11/16/16 10:58 60 11/16/16 10:00 106 11/16/16 08:00 70 11/16/16 08:00 99.6 112 25 117/73 (88) 100 11/16/16 08:00 112 11/16/16 07:50 98 90 11/16/16 07:00 98 Mechanical Ventilator 70 11/16/16 06:00 100 11/16/16 06:00 88 11/16/16 05:45 95 100 11/16/16 04:00 88 11/16/16 04:00 98.1 85 24 139/88 (105) 98 11/16/16 02:00 88 11/16/16 00:00 90 11/16/16 00:00 98.4 83 23 132/84 (100) 97 11/15/16 22:00 92 11/15/16 20:00 98 T-Piece 5.00 28 11/15/16 20:00 98.0 87 26 135/80 (98) 98 11/15/16 20:00 87 11/15/16 19:46 96 T-piece 28 11/15/16 18:00 90 11/15/16 16:00 92 11/15/16 16:00 98.4 92 24 127/86 (100) 95 11/15/16 14:00 90 . Laboratory Tests Test 11/15/16 05:30 11/16/16 08:28 White Blood Count 7.0 TH/MM3 8.2 TH/MM3 Red Blood Count 3.30 MIL/MM3 3.65 MIL/MM3 Hemoglobin 10.4 GM/DL 11.9 GM/DL Hematocrit 31.4 % 35.3 % Mean Corpuscular Volume 95.0 FL 96.6 FL Mean Corpuscular Hemoglobin 31.4 PG 32.5 PG Mean Corpuscular Hemoglobin Concent 33.1 % 33.7 % Red Cell Distribution Width 14.5 % 14.8 % Platelet Count 460 TH/MM3 447 TH/MM3 Mean Platelet Volume 9.1 FL 9.6 FL Laboratory Tests Test 11/15/16 05:30 11/16/16 08:28 Blood Urea Nitrogen 34 MG/DL 34 MG/DL Creatinine 0.81 MG/DL 0.78 MG/DL Random Glucose 112 MG/DL 138 MG/DL Calcium Level 8.5 MG/DL 8.5 MG/DL Sodium Level 148 MEQ/L 146 MEQ/L Potassium Level 3.2 MEQ/L 4.4 MEQ/L Chloride Level 113 MEQ/L 114 MEQ/L Carbon Dioxide Level 27.8 MEQ/L 24.6 MEQ/L Anion Gap 7 MEQ/L 7 MEQ/L Estimat Glomerular Filtration Rate 99 ML/MIN 104 ML/MIN Microbiology Date/Time Source Procedure Growth Status 11/15/16 05:20 Blood Peripheral Aerobic Blood Culture - Preliminary NO GROWTH IN 1 DAY Resulted 11/15/16 05:20 Blood Peripheral Anaerobic Blood Culture - Preliminary NO GROWTH IN 1 DAY Resulted 11/15/16 05:20 Blood Peripheral Aerobic Blood Culture - Preliminary NO GROWTH IN 1 DAY Resulted 11/15/16 05:20 Blood Peripheral Anaerobic Blood Culture - Preliminary NO GROWTH IN 1 DAY Resulted 11/16/16 06:00 Sputum Endotracheal Gram Stain Pending Received 11/16/16 06:00 Sputum Endotracheal Sputum Culture Pending Received Imaging Chest X-Ray 11/16/16 0000 Signed Impressions: Service Date/Time: Wednesday, November 16, 2016 05:45 - CONCLUSION: No significant change bilateral airspace opacities. Yosvany Butler MD Chest X-Ray 11/14/16 0000 Signed Impressions: Service Date/Time: Monday, November 14, 2016 12:12 - CONCLUSION: 1. Interval development of patchy bilateral lower lung zone airspace disease and small left pleural effusion. Findings are concerning for aspiration. Kev Vergara MD Chest X-Ray 11/11/16 0000 Signed Impressions: Service Date/Time: Friday, November 11, 2016 20:54 - CONCLUSION: Trace right base atelectasis. Yosvany Butler MD Abdomen X-Ray 10/21/16 0600 Signed Impressions: Service Date/Time: Friday, October 21, 2016 03:50 - CONCLUSION: 1. NGT in the stomach. 2. General paucity of small bowel gas. This finding is nonspecific and occasionally may reflect fluid-filled loops of bowel. Otherwise, no dilated bowel loops to suggest significant ileus or obstruction. Kev Vergara MD Transcranial Doppler Study Complete 10/20/16 0600 Signed Impressions: Service Date/Time: October 07:54 - CONCLUSION: Slight interval elevation of flow velocity measurements and ratio on the left Yosvany Polk MD Liver Ultrasound 10/19/16 0000 Signed Impressions: Service Date/Time: Wednesday, October 19, 2016 11:20 - CONCLUSION: 1. Sludge filled gallbladder with thickened wall. 2. Moderate size bilateral pleural effusions and mild upper abdominal ascites. Santos Vazquez MD Cerebral Arteriogram 10/19/16 0000 Signed Impressions: Service Date/Time: Wednesday, October 19, 2016 12:47 - CONCLUSION: Uncomplicated cerebral arteriography with spasmolytic therapy as described in detail above. Yosvany Polk MD Head CT 10/17/16 0000 Signed Impressions: Service Date/Time: Monday, October 17, 2016 15:06 - CONCLUSION: Ventricles are slightly larger without ventriculostomy. Edema in the left hemisphere the brain herniating through the operative site. Remington Woodward MD FACR Infusion Non-thrombolysis 10/14/16 1103 Signed Impressions: Service Date/Time: Friday, October 14, 2016 10:21 - CONCLUSION: 1. Uncomplicated infusion for spasmolysis Harvey Morejon MD Neck CTA 10/07/16 0000 Signed Impressions: Service Date/Time: Friday, October 07, 2016 15:03 - CONCLUSION: 1. Mild carotid bulb atherosclerotic calcification bilaterally. However, no significant stenosis is present in either internal carotid artery. 2. Paranasal sinus mucoperiosteal thickening. 3. Please refer to brain CTA report for description of the intracranial findings. Yosvany Ramirez MD Head CTA 10/07/16 0000 Signed Impressions: Service Date/Time: Friday, October 07, 2016 15:03 - CONCLUSION: 1. 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 2. Large left subdural hematoma measuring 1.3 cm in depth with a significant, 1.6 cm left to right subfalcine shift. Joni Shelton MD Chest X-Ray 11/05/16 06 Signed Impressions: Service Date/Time: Saturday, November 05, 2016 04:39 - CONCLUSION: Persistent non-consolidative infiltrates in the medial lower lungs. Santos Vazquez MD Abdomen X-Ray 10/21/16 0600 Signed Impressions: Service Date/Time: Friday, October 21, 2016 03:50 - CONCLUSION: 1. NGT in the stomach. 2. General paucity of small bowel gas. This finding is nonspecific and occasionally may reflect fluid-filled loops of bowel. Otherwise, no dilated bowel loops to suggest significant ileus or obstruction. Kev Vergara MD Transcranial Doppler Study Complete 10/20/16 06 Signed Impressions: Service Date/Time: October 07:54 - CONCLUSION: Slight interval elevation of flow velocity measurements and ratio on the left Yosvany Polk MD Liver Ultrasound 10/19/16 0000 Signed Impressions: Service Date/Time: Wednesday, October 19, 2016 11:20 - CONCLUSION: 1. Sludge filled gallbladder with thickened wall. 2. Moderate size bilateral pleural effusions and mild upper abdominal ascites. Santos Vazquez MD Cerebral Arteriogram 10/19/16 0000 Signed Impressions: Service Date/Time: Wednesday, October 19, 2016 12:47 - CONCLUSION: Uncomplicated cerebral arteriography with spasmolytic therapy as described in detail above. Yosvany Polk MD Head CT 10/17/16 0000 Signed Impressions: Service Date/Time: Monday, October 17, 2016 15:06 - CONCLUSION: Ventricles are slightly larger without ventriculostomy. Edema in the left hemisphere the brain herniating through the operative site. Remington Woodward MD FACR Infusion Non-thrombolysis 10/14/16 1103 Signed Impressions: Service Date/Time: Friday, October 14, 2016 10:21 - CONCLUSION: 1. Uncomplicated infusion for spasmolysis Harvey Morejon MD Neck CTA 10/07/16 0000 Signed Impressions: Service Date/Time: Friday, October 07, 2016 15:03 - CONCLUSION: 1. Mild carotid bulb atherosclerotic calcification bilaterally. However, no significant stenosis is present in either internal carotid artery. 2. Paranasal sinus mucoperiosteal thickening. 3. Please refer to brain CTA report for description of the intracranial findings. Yosvany Ramirez MD Head CTA 10/07/16 0000 Signed Impressions: Service Date/Time: Friday, October 07, 2016 15:03 - CONCLUSION: 1. 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 2. Large left subdural hematoma measuring 1.3 cm in depth with a significant, 1.6 cm left to right subfalcine shift. Joni Shelton MD Physical Exam GENERAL: Looks comfortable on the vent SKIN: Warm and dry. Rash better. HEAD: Incision healing with several areas that have eschar, no drainage, no redness EYES: Robbins conjunctiva. No petechia or hemorrhage. No scleral icterus. No injection or drainage. EARS, NOSE AND THROAT: Nose without bleeding or purulent nasal discharge. No sinus tenderness. Slightly dry oral mucosa NECK: Trachea midline. Supple and not tender, no meningeal signs. Trach site ok CARDIOVASCULAR: Regular rate and rhythm. No murmurs, rubs or gallops heard RESPIRATORY: Scattered rhonchi ABDOMEN: Soft, non-tender, nondistended. Bowel sounds present and normoactive. No guarding. No rebound. No organomegaly. EXTREMITIES: No clubbing, has mild pedal edema. Has dry gangrene LIF and R ring finger. All his toes have dry gangrene. No calf tenderness. Well perfused and warm. NEUROLOGICAL: Awake and alert. Mild facial asymmetry. Weak in all extremities PSYCHIATRIC: Normal affect, calm and cooperative. LINE: PIV with no evidence of infection Assessment & Plan Remarks IMPRESSION Persistent fevers since 11/02, WBC has improved - temps better - ?drug - UA 11/02 ok, has condom cath - no lines - diarrhea, C diff negative - has rash, ?fever due to Abx, ?Dilantin 2 BC with 2 different Coag Neg Staph, ?real, no lines now - last line removed 10/30 - ?contaminant S/P coiling aneurysm S/P craniectomy, decompression, evacuation of SDH Respiratory failure, S/P trach, on T-piece Rash likely drug eruption, ?Abx - B-lactam, ?Dilantin LV dysfunction Recurrent fevers, etiology? - ?aspiarated - has new infiltrates on CXR Vomiting RECOMMENDATION Stop Diflucan New C/S ordered, will follow he just finished Levaquin 11/15 Follow new C/S Monitor temps Monitor for recurrent vomiting Monitor progress Mitra Smith MD Nov 16, 2016 13:23
[2016-11-16] MEDS: MELATONIN 5 MG TAB PO SCH (19:58)
[2016-11-17] VITALS (17 sets, daily range): BP systolic 108–123; BP diastolic 72–80; PULSE 84–105; RESP 20–33; TEMP 97.8–99.1; O2SAT 98–100
[2016-11-17] MEDS: RESP: ACETYLCYSTEINE 20% 30 ML NEB NEB SCH ×4 (03:51→19:37)
[2016-11-17] MEDS: RESP: ALBUTEROL 2.5 MG/IPRATROPIUM 0.5 MG NEB (SCH) NEB ×4 (03:51→19:37)
[2016-11-17] MEDS: CHLORHEXIDINE GLUCONATE 2 % 1 PACK (2 CLOTHS) TOP SCH (04:00)
[2016-11-17] MEDS: FREE WATER G-TUBE SCH ×5 (04:00→20:00)
[2016-11-17] MEDS: DILTIAZEM HCL 90 MG TAB PO SCH ×3 (04:55→18:15)
[2016-11-17 06:22] LABS: HEMATOCRIT 31.3 % (39.0-51.0); MEAN CELL VOLUME 95.9 FL (80.0-100.0); MEAN CORPUSCULAR HEMOGLOBIN 31.6 PG (27.0-34.0); MEAN CORPUSCULAR HGB CONC 32.9 % (32.0-36.0); PLATELET COUNT 355 TH/MM3 (150-450); RED BLOOD COUNT 3.26 MIL/MM3 (4.50-5.90); RED CELL DISTRIBUTION WIDTH 14.8 % (11.6-17.2); REVIEW FLAG FINAL; WHITE BLOOD COUNT 4.9 TH/MM3 (4.0-11.0)
[2016-11-17 06:42] LABS: BICARBONATE 26.4 MEQ/L (21.0-32.0)
[2016-11-17] MEDS: CHLORHEXIDINE 0.12% (ORAL KIT) 15 ML CUP MT SCH ×2 (07:47→20:00)
[2016-11-17] MEDS: SODIUM CHLORIDE 0.9% FLUSH 10 ML FLUSH IV FLUSH SCH ×2 (07:47→20:50)
[2016-11-17] MEDS: ARTIFICIAL TEARS OPTH SOLN 15 ML BTL EACH EYE SCH ×3 (07:47→18:15)
[2016-11-17] MEDS: BENEPROTEIN POWDER 1 PACK G-TUBE SCH ×3 (07:47→18:00)
[2016-11-17] MEDS: LACTOBACILLUS ACIDOPHILUS TAB PO SCH ×3 (07:48→18:14)
[2016-11-17] MEDS: FUROSEMIDE 40 MG/5 ML UNIT DOSE CUP NG SCH (07:48)
[2016-11-17] MEDS: LANSOPRAZOLE SOLUTAB 30 MG TAB NG SCH (07:48)
[2016-11-17] MEDS: levETIRAcetam 500 MG/5 ML UDC NG SCH ×2 (07:49→20:50)
--- NOTE | 2016-11-17 11:55 | HHI.CCPN ---
Subjective Remarks/Hospital Course 10/07: 56-year-old male presents with intracranial bleed. Patient was transferred from [facility] at [facility]. As per the paramedics and the nurse who assisted the patient said that patient earlier this morning was coming down the stairs when he started feeling some left-sided weakness and numbness. He called 911 and by the time EMS arrived they detected some deficit and called a stroke alert. Patient was taken to [facility]. When patient arrived his mental status started to decline and he was intubated emergently in the ER. A CAT scan of the head showed subarachnoid and subdural bleed. He was taking emergently to an angio suite for coiling of the aneurysm and later on to OR for subdural hematoma evacuation. 10/08: Remains sedated, orally intubated on mechanical ventilation. Arouses off sedation and following commands with both upper extremities earlier. Ventriculostomy in place. ICP 7, CPP mid 80s. 10/09: Remains sedated, orally intubated on mechanical ventilation. Arouses off sedation and follows commands with both upper extremities. Ventriculostomy in place. 10/10: Remains sedated, orally intubated on mechanical ventilation. Arouses off sedation and follows commands and both upper extremities. Ventriculostomy in place. ICP 5. Failed C Pap trial yesterday. 10/11: Extubated on 10/10, tolerating well. Awake and alert. Appears confused, moving all 4 extremities. Ventriculostomy discontinued today by neurosurgery 10/13: Patient has developed severe vasospasm at the left MCA territory on TCD's that was treated with IV route verapamil 10/14: patient extubated overnight. was originally following commands and neuro intact. TCDs this morning with increase LIs over yesterday, particularly Left MCA territory. On my evaluation early this morning, patient was aphasic, not moving the right side of his body, not following commands. SBP 140s at that time. net 2L negative/24h and uop almost 1L/hr at the time. I immediately bolused with 2L NS iv, placed arterial and central lines, started phenylephrine , increased SBP to goal 200 - 220 mmHg. called interventional neuroradiology and accompanied patient down personally to IR for IA verapamil again. I remained with the patient managing his hemodynamics down in IR and providing anxiolysis IV. I accompanied patient back up to [facility] where patient again was neuro intact and following commands. Sodium downtrending to 135 and urine studies and serum osms suggestive of urine sodium losses and high uop. added Florinef to mitigate sodium losses, and increased mivf to 500cc/hr to maintain euvolemia. later in the day patient decompensated requiring intubation for hyoxemia, cxr suggestive of pulmonary edema. 2d echo with evidence of EF 40%, septal hypokinesis, moderate MR. On levo, vaso, phenylephrine. difficult to get to goal SBP 200 mmHg, likely due to myocardial dysfunction. decreased goal to 180 - 200 mmHg to balance cardiac vs. neurologic goals. 10/15 Patient was discussed with Dr. Sullivan at shift change. Isuprel was initiated in effort to improve cardiac output as dobutamine not available and concerned with use of milrinone given long half life. Systolic blood pressure was relatively stable with perhaps some modest improvement from 170s to 180s for several hours after initiation. Notified when patient became abruptly hypotensive despite vasopressin, levophed 20 mcg/min, Greyson-Synephrine 300 mcg/m. He was also hypoxemic with sats in 80s despite PCV with PEEP 8 and FiO2 100%, respiratory rate in the 30s. He had decreased breath sounds bilaterally and was concerned for air trapping so removed from mechanical ventilation and bagged without improvement. Placed patient back on mechanical ventilation and provide recruitment maneuvers and increased PEEP to 12 which resulted in improvement of sats to 88% to 92%. Ordered Flolan. Discontinued isuprel and initiated epinephrine. R radial art line would not draw blood . Performed u/s guided femoral artery stick to confirm hypoxemia on ABG given poor wave form on pulse ox and PaO2 was 58. Placed new L radial art line and this resulted in ~ 30 point increase in SBP relative to prior line but patient ultimately on vasopressin, levophed 30 micrograms per minute, Greyson-Synephrine 300 micrograms per minute, epinephrine 12 mcg/min and unable to maintain target pressure (SBP in 150s). Given calcium chloride. patient with shaking movements all extremities, pupils 2mm and sluggish, no eye deviation. Rigors seemed most likely but unable to emergently rule out seizures so loaded with fosphenytoin to avoid secondary injury from seizure activity. WBC increasing and concern for HCAP so pancultured and placed on cefepime, vancomycin, azithromycin. Hydrocortisone 100 mg IV every 8 hours initiated due to concern for septic shock in a patient who has been refractory to all other above measures. Patient is to hemodynamically unstable and hypoxic for transport for neurologic imaging. Urine output has declined to 180-200 ML's per hour. Back off maintenance IV fluids to 200 ML's per hour. Bedside echo demonstrates decreased LV function with normal RV contractility and collapsible IVC suggesting ongoing maintenance fluid administration is appropriate. 10/15 additional visit: continued to deteriorate throughout the day. Seen multiple times. hypoxic on 100% fio2, flolan. required nimbex drip to maintain. repeat bedside critical care ultrasound still demonstrates severe LV dysfunction , decompressed RV, IVC more dilated than previous echo overnight, however still with respiratory variation. femoral arterial line placed with better waveform and higher pressure (likely SVR too high to allow accurate measurement of radial pressure). Pulse contour analysis without stroke volume variation, CI 3.6. SV 52mL. trialed additional albumin without improvement in hemodynamics. uop slower than before, but still significant salt wasting in the urine- sodium dropped to 125 from 132 despite already on 3% nacl infusion and aggressive sodium replacements. forced to give 23% nacl and salt tabs. declining clinically despite maximal therapy. 10/16: continues to be maximally critically ill. LV dysfunction persists. starting to get volume overloaded, but given concern for ongoing cerebral vasospasm, unable to actively diurese patient. sodium wasting persists, but uop downtrending slightly. very hypokalemic today, likely due to steroids. remains intubated, sedated, paralyzed, on flolan. CXR today appears worse with worsening airspace disease. Lactate remains slightly elevated, confirming persistent shock. 10/17: Lung infiltrates dense bilaterally, reflected in shunting and problems with oxygenation. Developed vasospasm on TCDs and required angiogram and intra- arterial verapamil again today. 10/18: SBP 160 - 170 range. FiO2 0.55. BNP > 5000. Not tolerating attempts at maintaining higher BP due to worsening heart failure. Several episodes of vasospasm. Watch daily TCDs closely. Sputum no growth. 10/19: Tmax 99.8. Currently 99. Remains on 4 vasopressors and epoprostenol 10/20: Yesterday. Returned IR for intra-arterial calcium channel jose infusion for vasospasm. Transcranial Dopplers today Still pending. Remains on significant vasopressor support. 10/21: Good response to diuresis, check BNP. TCDs pending. Heart failure remains a major problem. 10/22: CVP 21 - 22, finger tips blue, digits pale white despite high dose milrinone dilation. Greyson and vaso much reduced. Will try diltiazem gtt for digital ischemia. Urine remains > 200/hr and proximal limbs are well perfused. This digital ischemia appears to be a local phenomenon ala Raynaud's. New subcutaneous emphysema right anterior chest wall. 10/23: Old CVL removed. Fingertips remain marginal, some necrotic despite diltiazem and milrinone treatment for digital ischemia. Cardiac output > 7 liters/min and urine copious, confirming good perfusion pressure and flow. This continues to be a local phenomenon of the digits ala Raynaud's. We are trying to wean vasopressors off but are required to maintaining a cerebral perfusion pressure suitable for the treatment of aneurysmal subarachnoid bleed. Frankly, the importance of brain function eclipses fingertips. 10/24: Afebrile. Well perfused except for index finger left hand, few tips fingers right. Arms and hands warmer with resolving circumferential edema. Diltiazem and milrinone gtt continue. Greyson to 10 mics/min. 10/25: Digits are warm and well perfused except left index and right 4th fingertips; demarcated and not viable. Dry. Diltiazem and milrinone infusions continue to help reverse digital ischemia. 10/26: Forced diuresis continues and BP remains nicely elevated. Hands and digits warm aside from left index and right 4th fingertips which have demarcated. 10/27: Good response to diuretics. Perfusion pressure and documented flow excellent. Continue to wean vent. 10/28: Start SBTs. Fluid balance back toward normal. 10/29: Tolerating SBTs. Lowering sedation. Edema resolving. 10/30: Tolerating tube feeds, will taper off TPN and remove central line. Continue diuretics. 10/31: net -3L over 24h. mental status at baseline. tolerating CPAP, but does not have the mental status to protect airway. will likely need trach/peg. placement will be a problem due to lack of funding. 11/01: no changes or improvements. discussed with yesterday and she "does not want any more setbacks" and would prefer trach versus trial of extubation. I agree with her assessment. plan for trach today. placement is still a significant problem. net -2L/24h. 11/02: wbc uptrending, febrile. antonio cultured, started empiric abx today. failed SBT overnight and placed back on rate. 11/03: Tolerating CPAP today, following commands. Low-grade fever cultures pending. WBC count normal today 11/04: Remains on TPs since yesterday. Neuro exam remains stable. Follows commands weakly. Na 152 11/05: Remains off vent for 48 hours now. Sitting up in stretcher chair today. Na improved to 149. remains weak but improving 11/06: Continues to tolerate TPs well. Neuro exam unchanged. Sodium 148 today. Continues to spike intermittent fever Tmax 102.7. 11/07: Continued fevers, no leukocytosis. 11/08: Stable for replacement of bone flap. 11/09: Getting a bit excessively diuresed, will decrease lasix and convert to PO. Fingertips and toes demarcating as expected. No immediate action required except for continued diltiazem therapy. Clearly a Raynaud's type digital ischemia as peripheral perfusion and urine output indicated excellent peripheral perfusion. 11/10: Tracks with eyes today, nods to questions. Failed swallow again. 11/11: Plan for PEG, GI consulted. Bone flap replacement on hold due to blood cultures and fever. 11/12: May get PEG today, Bone flap to be replaced coming week per Dr. Perry. Afebrile no white count 11/13: Neuro exam unchanged. Na was 150 yesterday, repeat CMP pending. Left flap remains sunken 11/14: emesis overnight with ? aspiration event. no increased O2 requirement, but fever to 102.5 today. recultured. no complaints from patient. 11/15: No changes. still low suspicion for infection. Awaiting ID clearance for bone flap replacement. also awaiting placement SUBJ 11/16: Placed on full ventilator support overnight for acute hypoxemic respiratory failure due to mucous plugging. Mucomyst added. Not on any sedation. Chest x-ray back to baseline-no need a bronchoscopy at this time, but will do if there is recurrent plugging. Will check sputum culture, and trach site culture 11/17: Breathing comfortably on the vent, on CPAP now. Off all sedation. We'll attempt T piece yesterday. Sodium normal Objective Vital Signs Date Time Temp Pulse Resp B/P (MAP) Pulse Ox O2 Delivery O2 Flow Rate FiO2 11/17/16 10:00 97 11/17/16 08:10 100 40 11/17/16 08:00 99.1 20 110/74 (86) 11/17/16 07:00 Mechanical Ventilator 11/15/16 20:00 5.00 Intake and Output 11/17/16 11/17/16 11/18/16 08:00 16:00 00:00 Intake Total 1310 ml Output Total 750 ml Balance 560 ml Result Diagram: 11/17/16 0524 11/17/16 0524 Imaging Last Impressions Chest X-Ray 10/20/16 0000 Signed Impressions: Service Date/Time: October 03:47 - CONCLUSION: 1. Stable tubes and lines. 2. Stable bilateral lower lung zone airspace disease. 3. Stable small right pleural effusion. 4. No significant interval change. Kev Vergara MD Transcranial Doppler Study Complete 10/19/16 0600 Signed Impressions: Service Date/Time: Wednesday, October 19, 2016 08:02 - CONCLUSION: Suspect developing right MCA vasospasm Yosvany Polk MD Liver Ultrasound 10/19/16 0000 Signed Impressions: Service Date/Time: Wednesday, October 19, 2016 11:20 - CONCLUSION: 1. Sludge filled gallbladder with thickened wall. 2. Moderate size bilateral pleural effusions and mild upper abdominal ascites. Santos Vazquez MD Head CT 10/17/16 0000 Signed Impressions: Service Date/Time: Monday, October 17, 2016 15:06 - CONCLUSION: Ventricles are slightly larger without ventriculostomy. Edema in the left hemisphere the brain herniating through the operative site. Remington Woodward MD FACR Cerebral Arteriogram 10/17/16 0000 Signed Impressions: Service Date/Time: Monday, October 17, 2016 00:00 - CONCLUSION: 1. Uncompensated spasmolysis of the left middle cerebral artery Harvey Morejon MD Infusion Non-thrombolysis 10/14/16 1103 Signed Impressions: Service Date/Time: Friday, October 14, 2016 10:21 - CONCLUSION: 1. Uncomplicated infusion for spasmolysis Harvey Morejon MD Neck CTA 10/07/16 0000 Signed Impressions: Service Date/Time: Friday, October 07, 2016 15:03 - CONCLUSION: 1. Mild carotid bulb atherosclerotic calcification bilaterally. However, no significant stenosis is present in either internal carotid artery. 2. Paranasal sinus mucoperiosteal thickening. 3. Please refer to brain CTA report for description of the intracranial findings. Yosvany Ramirez MD Head CTA 10/07/16 0000 Signed Impressions: Service Date/Time: Friday, October 07, 2016 15:03 - CONCLUSION: 1. 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 2. Large left subdural hematoma measuring 1.3 cm in depth with a significant, 1.6 cm left to right subfalcine shift. Joni Sehlton MD Objective Remarks GENERAL: 56-year-old male. On full vent support. HEAD: Status post left craniectomy. Left flap sunken, Incision healing well EYES: About 3 mm bilaterally and reactive NECK: Trachea midline. 8.0 Shiley cuffed trach, minimally elevated remains surrounding the trach site CARDIOVASCULAR: normal rate, regular rhythm. sinus by tele. RESPIRATORY: On CPAP. Bilateral course rhonchi GASTROINTESTINAL: Abdomen soft, non-tender, nondistended. MUSCULOSKELETAL: Ischemic changes worst to left index finger tip, right 4th fingertip, and majority of R toes. Demarcating, dry. NEURO EXAM: Opens eyes and follows command, right UE weaker than left, follows commands x4. Procedures 10/13 Four-vessel cerebral angiography with verapamil treatment of vasospasm Urinary Catheter: Yes Assessment to: Continue A/P Assessment and Plan Neuro/Psych Status post left frontotemporal parietal craniectomy 10/08 for evacuation subdural hematoma/duraplasty Left subdural hematoma - 1.3 cm with 1.6 shift left to right Subarachnoid hemorrhage Alvarado and Rodriguez 5, Carroll grade 4 - left P-comm status post 4 coiling 10/08 - Nimodipine completed 21 days. Initiated 10/13. - Levetiracetam 500 mg per tube q12h. - 10/13 and 10/14 and 10/17) 10/19 left MCA territory vasospasm, status post successful verapamil treatment by IR with 20 mg verapamil - SBP goal now <140. - 10/17 CT brain - less hemisphere edema with herniation through left craniotomy site, now improved. - Dr. Perry/neurosurgery. Plan to replace bone flap when cleared by ID Respiratory: Acute hypoxic Respiratory failure secondary to mucous plugging Possible healthcare associated pneumonia ARDS- resolved Noncardiogenic/neurogenic pulmonary edema- resolved. Chronic respiratory failure requiring tracheostomy -- Nebs, HOB at 30 degrees. CPAP, TP up to 4 hrs today -- Albuterol/Atrovent every 6 hours with albuterol aerosols every 2 hours for Dyspnea. Mucomyst added -- Follow-up on sputum culture -- s/p Trach Dr. Sullivan/Dr. Collazo 11/01 Cardiovascular: Septic and cardiogenic shock- resolved. LV dysfunction secondary to SAH - persistent, now resolved Elevated troponin- secondary to SAH, unlikely to be ACS. - resolved. Pulmonary hypertension Continue diuresis. free water 200mL per tube q6h. Echocardiogram 10/14/16 revealed EF 40-45%. Septal hypokinesis. Moderate MR. Severe pulmonary hypertension with pulmonary artery pressures estimated 61 mmHg Limited Echo 11/06: LVEF 60-65%, Trivial mitral and tricuspid regurgitation, No vegetations noted. Renal: Cerebral Salt Wasting/SIADH-resolved now hypernatremic Strict I/Os. See FEN below. Creatinine currently within normal limits -> resolved. FEN/GI: Severe hyponatremia-resolved now hypernatremic Hypokalemia Elevated transaminases Hyperammonemia - DCd sodium chloride 3gm po TID 11/04 - free water per tube 300mL po q4h. - ICU electrolyte protocol. aggressively replace potassium losses. - Lansoprazole 30 mg by tube daily for GI prophylaxis - Docusate sodium 100 mg twice a day, senna liquid 8.6 mg twice a day and polyethylene glycol 3350 17 g twice a day for bowel regimen - Lactulose 30 cc QID. ammonia 46 on 10/31, 37 on 11/04 - Continue PEG feeding. s/p PEG 11/12/16 Heme/ID: Septic Shock- resolved. Possible HCAP New Fever, leukocytosis, staph epi bacteremia - limited Echo to evaluate vegetation-neg. DCd Dilantin. ID following - Follow-up on sputum culture, trach site culture - Digital Ischemia with necrosis, conservative management - s/p Diltiazem and milrinone infusions - Digits have demarcated, allow auto amputation. Cardizem PO (for digital ischemia, Raynaud's) Pertinent cultures 10/15 - blood cultures - 1 out of 4 anaerobic gram-negative cocci possibly Veillonella 10/15 - sputum - beta strep not A, strep species 10/19 cultures NG 10/21/ bottles blood cultures coag negative staph. Culture 11/01. coag neg stah 03/19 bottles 11/16 sputum in trach site cultures negative s/p Levaquin x 7 days end 11/15/16 Diflucan duration per ID (started 11/06/16) Endocrine: Presumed Adrenal Insufficiency Discontinued fludrocortisone 10/18. Sliding-scale insulin with NovoLog -Accu-Cheks every 4 hours to maintain euglycemia d/cd Levemir bid. Taper off cortisone -> done Prophylaxis: GI Prophylaxis - lansoprazole DVT Prophylaxis-- SCDs, heparin subcutaneous Lines: - 10/14 right SC TLC, removed 10/22 - 10/14 right radial art line, removed 10/14 - 10/15 left radial art line, removed 10/16 - 10/22 left groin triple lumen placed, d/c 10/30 - d/c ramires. Overall impression: No change. follow up culture from new fever, does not appear infected. needs bone flap replaced and placement. The patient's digital ischemia developed when he had a cardiac output over 8.0 liters/min, CVP was over 20 mm Hg, and urine over 75 ml/hr for many days. BNP was elevated at 777. His hands and feet were warm but the fingers and toes became cold, white, nearly cadaveric. Greyson synephrine was only vasopressor and it was at 30 units/min only. We stopped it immediately and started milrinone and cardizem iv infusions. Most fingers and toes responded well to the vascular dilators but a few digits demarcated and became necrotic. Anticoagulation was not an option in face of recent aneurysm rupture and gastritis. Patients with this degree of digital ischemia (severe Raynaud's) usually have an underlying illness such as malignancy, mixed connective tissue disorder, collagen vascular disease, rheumatoid disease, etc. This workup can progress after he has cleared exogenous steroids which were just stopped. He's in a pretty revved up inflammatory state now and the lab values will be altered by it. Overall impression: Acute events yesterday noted developed acute hypoxemic respiratory failure, due to mucus plugging currently on full vent support. Start CPAP trial and TP Harvey aBr MD Nov 17, 2016 11:55
[2016-11-17] MEDS: MELATONIN 5 MG TAB PO SCH (20:49)
[2016-11-18] VITALS (17 sets, daily range): BP systolic 112–125; BP diastolic 67–87; PULSE 90–109; RESP 24–33; TEMP 97.9–100.6; O2SAT 96–100
[2016-11-18] MEDS: DILTIAZEM HCL 90 MG TAB PO SCH ×4 (00:08→17:25)
[2016-11-18] MEDS ORDERED: ONDANSETRON HCL 4 MG/2 ML VIAL IV PUSH PRN (01:45)
[2016-11-18] MEDS: METOCLOPRAMIDE HCL 10 MG/2 ML VIAL IV PUSH SCH ×3 (01:59→17:25)
[2016-11-18] MEDS ORDERED: SODIUM CHLOR 0.9% 1000 ML INJ 1,000 ML IV ONE (02:00)
[2016-11-18] MEDS: RESP: ACETYLCYSTEINE 20% 30 ML NEB NEB SCH ×4 (03:31→19:31)
[2016-11-18] MEDS: RESP: ALBUTEROL 2.5 MG/IPRATROPIUM 0.5 MG NEB (SCH) NEB ×4 (03:31→19:31)
[2016-11-18] MEDS: FREE WATER G-TUBE SCH ×6 (04:00→20:00)
[2016-11-18] MEDS: CHLORHEXIDINE GLUCONATE 2 % 1 PACK (2 CLOTHS) TOP SCH (04:00)
[2016-11-18 04:49] LABS: HEMATOCRIT 31.3 % (39.0-51.0); MEAN CELL VOLUME 95.4 FL (80.0-100.0); MEAN CORPUSCULAR HEMOGLOBIN 31.3 PG (27.0-34.0); MEAN CORPUSCULAR HGB CONC 32.8 % (32.0-36.0); PLATELET COUNT 431 TH/MM3 (150-450); RED BLOOD COUNT 3.28 MIL/MM3 (4.50-5.90); REVIEW FLAG FINAL; WHITE BLOOD COUNT 6.6 TH/MM3 (4.0-11.0)
[2016-11-18 05:16] LABS: BICARBONATE 25.2 MEQ/L (21.0-32.0)
--- NOTE | 2016-11-18 06:16 | RADRPT ---
EXAM DATE/TIME: 11/18/2016 05:04 [facility] COMPARISON: CHEST SINGLE AP, November 16, 2016, 5:45. INDICATIONS : Respiratory disease. MEDICAL HISTORY : Seizures. Subarachnoid hemorrhage. Hypertension SURGICAL HISTORY : Craniotomy. Ventriculostomy ENCOUNTER: Subsequent ACUITY: 1 month PAIN SCORE: Non-responsive. LOCATION: Bilateral FINDINGS: Single portable frontal view the chest shows bibasilar infiltrates which are unchanged. No effusions. Heart normal size. Tracheostomy tube. CONCLUSION: Unchanged bilateral pulmonary infiltrates. Santos Crockett Jr., MD on November 18, 2016 at 6:14 Board Certified Radiologist. This report was verified electronically.
--- NOTE | 2016-11-18 08:14 | RADRPT ---
EXAM DATE/TIME: 11/18/2016 07:19 [facility] COMPARISON: ABDOMEN KUB ONLY, October 21, 2016, 3:50. INDICATIONS : Evaluate for ileus. MEDICAL HISTORY : Seizures, Subarachnoid hemorrhage, Hypertension. SURGICAL HISTORY : Craniotomy. Ventriculostomy ENCOUNTER: Subsequent ACUITY: 1 month PAIN SCORE: Non-responsive. LOCATION: Abdomen. FINDINGS: Supine view of the abdomen was performed. Gaseous distention of multiple bowel loops. Air in the colo n. The abdominal bowel gas pattern is normal. No abnormal masses, calcifications, or organomegaly is seen. The osseous structures are unremarkable. CONCLUSION: Gaseous distention multiple bowel loops, possibly from an ileus. No bowel obstruction seen. Luis Benites MD on November 18, 2016 at 8:12 Board Certified Radiologist. This report was verified electronically.
[2016-11-18] MEDS: CHLORHEXIDINE 0.12% (ORAL KIT) 15 ML CUP MT SCH ×2 (08:27→20:25)
[2016-11-18] MEDS: ARTIFICIAL TEARS OPTH SOLN 15 ML BTL EACH EYE SCH ×3 (08:28→17:27)
[2016-11-18] MEDS: BENEPROTEIN POWDER 1 PACK G-TUBE SCH ×3 (08:28→17:26)
[2016-11-18] MEDS: levETIRAcetam 500 MG/5 ML UDC NG SCH ×2 (08:28→19:36)
[2016-11-18] MEDS: SODIUM CHLORIDE 0.9% FLUSH 10 ML FLUSH IV FLUSH SCH ×2 (08:28→19:35)
[2016-11-18] MEDS: LACTOBACILLUS ACIDOPHILUS TAB PO SCH ×3 (08:29→17:26)
[2016-11-18] MEDS: LANSOPRAZOLE SOLUTAB 30 MG TAB NG SCH (08:29)
[2016-11-18] MEDS: FUROSEMIDE 40 MG/5 ML UNIT DOSE CUP NG SCH (08:29)
--- NOTE | 2016-11-18 10:49 | HHI.IDPN ---
Subjective Subjective Remarks Patient is a 56-year-old male, initially admitted at [facility] after he developed acute onset of left-sided weakness and numbness. In [facility] emergency room his mental status deteriorated, and he required intubation. CT of the head showed subarachnoid bleed. He was transferred to [facility] for neurosurgical evaluation and treatment. Patient underwent angiogram and coiling of his aneurysm. He also underwent emergency surgery and had left frontal temporal parietal decompressive craniectomy, duraplasty, and evacuation of a subdural hematoma. He had a ezio hole and the ventriculostomy placement. His hospitalization was complicated by significant vasospasm of his cerebral arteries, and he had multiple angiogram and treatment of the vasospasm. He also had problem with significant LV dysfunction in both volume overload. His had hyponatremia that has been treated and corrected. He initially started having fevers and some clinical deterioration as far as infection around the first week of October. He had a sputum culture that had pneumococcus, beta- hemolytic strep and Haemophilus. He had one out of 2 blood culture that had anaerobic gram-negative cocci. He was on antibiotics up until October 23. Patient also required significant amount of pressors to maintain an adequate blood pressure to ensure cerebral perfusion. 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 Patient eventually underwent tracheostomy for his continued respiratory requirement, and had this procedure done November 01. Patient currently has been doing quite well and not requiring ventilatory support, and on T piece. Starting November 02 he started having fevers again as well as increased WBC. Repeat cultures at that time grew 2 blood cultures that had coag-negative staph. His central lines have been removed. Patient also has had liquid stool, but C. difficile is negative. Urinalysis done was unremarkable. Patient was started back on antibiotics on November 02 and has been on cefepime and IV vancomycin. He continues to have fevers. His WBC has been down to normal. His last chest x- ray yesterday showing stable infiltrates. He has no central line. He has a Maldonado catheter in place. He has an NG tube and gets tube feedings. Infectious disease consultation has been requested to evaluate the patient for persistent fevers. Notes reviewed D/W RN On T-piece Sputum C/S with normal resp slim CXR stable infiltrates WBC normal S/P PEG 11/11 Lines PIV Past Medical History Hypertension Past Surgical History Status post trach Status post craniectomy for evacuation of subdural hematoma Allergies: Coded Allergies: No Known Allergies (Unverified , 05/06/16) Objective . Vital Signs Date Time Temp Pulse Resp B/P (MAP) Pulse Ox O2 Delivery O2 Flow Rate FiO2 11/18/16 08:48 97 T-piece 6.00 40 11/18/16 08:33 96 40 11/18/16 06:00 97 11/18/16 04:18 98 40 11/18/16 04:00 40 11/18/16 04:00 99 11/18/16 04:00 97.9 99 27 117/75 (89) 99 11/18/16 02:00 96 11/18/16 01:09 100 40 11/18/16 00:00 98.0 103 26 125/87 (100) 99 11/18/16 00:00 40 11/18/16 00:00 103 11/17/16 22:00 96 11/17/16 20:00 40 11/17/16 20:00 105 11/17/16 20:00 97.8 105 33 122/77 (92) 99 11/17/16 19:39 99 40 11/17/16 19:00 99 Mechanical Ventilator 40 11/17/16 18:00 94 11/17/16 16:59 100 40 11/17/16 16:00 94 11/17/16 16:00 98.8 94 22 115/76 (89) 99 11/17/16 14:00 85 11/17/16 12:15 100 T-piece 6.00 40 11/17/16 12:00 96 11/17/16 12:00 98.7 98 24 123/72 (89) 100 11/17/16 12:00 40 . Laboratory Tests Test 11/17/16 05:24 11/18/16 03:54 White Blood Count 4.9 TH/MM3 6.6 TH/MM3 Red Blood Count 3.26 MIL/MM3 3.28 MIL/MM3 Hemoglobin 10.3 GM/DL 10.3 GM/DL Hematocrit 31.3 % 31.3 % Mean Corpuscular Volume 95.9 FL 95.4 FL Mean Corpuscular Hemoglobin 31.6 PG 31.3 PG Mean Corpuscular Hemoglobin Concent 32.9 % 32.8 % Red Cell Distribution Width 14.8 % 15.0 % Platelet Count 355 TH/MM3 431 TH/MM3 Mean Platelet Volume 9.5 FL 9.6 FL Laboratory Tests Test 11/17/16 05:24 11/18/16 03:54 Blood Urea Nitrogen 32 MG/DL 30 MG/DL Creatinine 0.67 MG/DL 0.55 MG/DL Random Glucose 109 MG/DL 119 MG/DL Calcium Level 8.1 MG/DL 8.0 MG/DL Sodium Level 144 MEQ/L 142 MEQ/L Potassium Level 4.0 MEQ/L 4.0 MEQ/L Chloride Level 111 MEQ/L 109 MEQ/L Carbon Dioxide Level 26.4 MEQ/L 25.2 MEQ/L Anion Gap 7 MEQ/L 8 MEQ/L Estimat Glomerular Filtration Rate 124 ML/MIN 155 ML/MIN Microbiology Date/Time Source Procedure Growth Status 11/16/16 06:00 Sputum Endotracheal Gram Stain - Final Complete 11/16/16 06:00 Sputum Endotracheal Sputum Culture - Final HEAVY GROWTH NORMAL RESPIRATORY SLIM Complete 11/16/16 11:13 Wound Neck Gram Stain - Final Resulted 11/16/16 11:13 Wound Neck Wound Culture - Preliminary HEAVY GROWTH NORMAL SKIN SLIM AT 24HRS Resulted Imaging Chest X-Ray 11/16/16 0000 Signed Impressions: Service Date/Time: Wednesday, November 16, 2016 05:45 - CONCLUSION: No significant change bilateral airspace opacities. Yosvany Butler MD Chest X-Ray 11/14/16 0000 Signed Impressions: Service Date/Time: Monday, November 14, 2016 12:12 - CONCLUSION: 1. Interval development of patchy bilateral lower lung zone airspace disease and small left pleural effusion. Findings are concerning for aspiration. Kev Vergara MD Chest X-Ray 11/11/16 0000 Signed Impressions: Service Date/Time: Friday, November 11, 2016 20:54 - CONCLUSION: Trace right base atelectasis. Yosvany Butler MD Abdomen X-Ray 10/21/16 0600 Signed Impressions: Service Date/Time: Friday, October 21, 2016 03:50 - CONCLUSION: 1. NGT in the stomach. 2. General paucity of small bowel gas. This finding is nonspecific and occasionally may reflect fluid-filled loops of bowel. Otherwise, no dilated bowel loops to suggest significant ileus or obstruction. Kev Vergara MD Transcranial Doppler Study Complete 10/20/16 0600 Signed Impressions: Service Date/Time: October 07:54 - CONCLUSION: Slight interval elevation of flow velocity measurements and ratio on the left Yosvany Polk MD Liver Ultrasound 10/19/16 0000 Signed Impressions: Service Date/Time: Wednesday, October 19, 2016 11:20 - CONCLUSION: 1. Sludge filled gallbladder with thickened wall. 2. Moderate size bilateral pleural effusions and mild upper abdominal ascites. Santos Vazquez MD Cerebral Arteriogram 10/19/16 0000 Signed Impressions: Service Date/Time: Wednesday, October 19, 2016 12:47 - CONCLUSION: Uncomplicated cerebral arteriography with spasmolytic therapy as described in detail above. Yosvany Polk MD Head CT 10/17/16 0000 Signed Impressions: Service Date/Time: Monday, October 17, 2016 15:06 - CONCLUSION: Ventricles are slightly larger without ventriculostomy. Edema in the left hemisphere the brain herniating through the operative site. Remington Woodward MD FACR Infusion Non-thrombolysis 10/14/16 1103 Signed Impressions: Service Date/Time: Friday, October 14, 2016 10:21 - CONCLUSION: 1. Uncomplicated infusion for spasmolysis Harvey Morejon MD Neck CTA 10/07/16 0000 Signed Impressions: Service Date/Time: Friday, October 07, 2016 15:03 - CONCLUSION: 1. Mild carotid bulb atherosclerotic calcification bilaterally. However, no significant stenosis is present in either internal carotid artery. 2. Paranasal sinus mucoperiosteal thickening. 3. Please refer to brain CTA report for description of the intracranial findings. Yosvany Ramirez MD Head CTA 10/07/16 0000 Signed Impressions: Service Date/Time: Friday, October 07, 2016 15:03 - CONCLUSION: 1. 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 2. Large left subdural hematoma measuring 1.3 cm in depth with a significant, 1.6 cm left to right subfalcine shift. Joni Shelton MD Chest X-Ray 11/05/16 0600 Signed Impressions: Service Date/Time: Saturday, November 05, 2016 04:39 - CONCLUSION: Persistent non-consolidative infiltrates in the medial lower lungs. Santos Vazquez MD Abdomen X-Ray 10/21/16 0600 Signed Impressions: Service Date/Time: Friday, October 21, 2016 03:50 - CONCLUSION: 1. NGT in the stomach. 2. General paucity of small bowel gas. This finding is nonspecific and occasionally may reflect fluid-filled loops of bowel. Otherwise, no dilated bowel loops to suggest significant ileus or obstruction. Kev Vergara MD Transcranial Doppler Study Complete 10/20/16 0600 Signed Impressions: Service Date/Time: October 07:54 - CONCLUSION: Slight interval elevation of flow velocity measurements and ratio on the left Yosvany Polk MD Liver Ultrasound 10/19/16 0000 Signed Impressions: Service Date/Time: Wednesday, October 19, 2016 11:20 - CONCLUSION: 1. Sludge filled gallbladder with thickened wall. 2. Moderate size bilateral pleural effusions and mild upper abdominal ascites. Santos Vazquez MD Cerebral Arteriogram 10/19/16 0000 Signed Impressions: Service Date/Time: Wednesday, October 19, 2016 12:47 - CONCLUSION: Uncomplicated cerebral arteriography with spasmolytic therapy as described in detail above. Yosvany Polk MD Head CT 10/17/16 0000 Signed Impressions: Service Date/Time: Monday, October 17, 2016 15:06 - CONCLUSION: Ventricles are slightly larger without ventriculostomy. Edema in the left hemisphere the brain herniating through the operative site. Remignton Woodward MD FACR Infusion Non-thrombolysis 10/14/16 1103 Signed Impressions: Service Date/Time: Friday, October 14, 2016 10:21 - CONCLUSION: 1. Uncomplicated infusion for spasmolysis Harvey Morejon MD Neck CTA 10/07/16 0000 Signed Impressions: Service Date/Time: Friday, October 07, 2016 15:03 - CONCLUSION: 1. Mild carotid bulb atherosclerotic calcification bilaterally. However, no significant stenosis is present in either internal carotid artery. 2. Paranasal sinus mucoperiosteal thickening. 3. Please refer to brain CTA report for description of the intracranial findings. Yosvany Ramirez MD Head CTA 10/07/16 0000 Signed Impressions: Service Date/Time: Friday, October 07, 2016 15:03 - CONCLUSION: 1. 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 2. Large left subdural hematoma measuring 1.3 cm in depth with a significant, 1.6 cm left to right subfalcine shift. Joni Shelton MD Physical Exam GENERAL: Looks comfortable, on T-piece SKIN: Warm and dry. Rash better. HEAD: Incision healing with several areas that have eschar, no drainage, no redness EYES: Rainbow conjunctiva. No petechia or hemorrhage. No scleral icterus. No injection or drainage. EARS, NOSE AND THROAT: Nose without bleeding or purulent nasal discharge. No sinus tenderness. Slightly dry oral mucosa NECK: Trachea midline. Supple and not tender, no meningeal signs. Trach site ok CARDIOVASCULAR: Regular rate and rhythm. No murmurs, rubs or gallops heard RESPIRATORY: Scattered rhonchi ABDOMEN: Soft, non-tender, nondistended. Bowel sounds present and normoactive. No guarding. No rebound. No organomegaly. EXTREMITIES: No clubbing, has mild pedal edema. Has dry gangrene LIF and R ring finger. All his toes have dry gangrene. No calf tenderness. NEUROLOGICAL: Awake and alert. Mild facial asymmetry. Weak in all extremities PSYCHIATRIC: Normal affect, calm and cooperative. LINE: PIV with no evidence of infection Assessment & Plan Remarks IMPRESSION Persistent fevers since 11/02, WBC has improved - temps better - ?drug - UA 11/02 ok, has condom cath - no lines - diarrhea, C diff negative - has rash, ?fever due to Abx, ?Dilantin 2 BC with 2 different Coag Neg Staph, ?real, no lines now - last line removed 10/30 - ?contaminant S/P coiling aneurysm S/P craniectomy, decompression, evacuation of SDH Respiratory failure, S/P trach, on T-piece Rash likely drug eruption, ?Abx - B-lactam, ?Dilantin LV dysfunction Recurrent fevers, etiology? - ?aspirated - has new infiltrates on CXR - temps normal Vomiting, intermittent, etiology? - vomited again last night RECOMMENDATION Levaquin x 7 days Monitor temps Monitor for recurrent vomiting Monitor progress Should be ok to have OR next week D/W RN Dr Ct Sanabria available this weekend if with any ID issue or question Mitra Smith MD Nov 18, 2016 10:48
[2016-11-18] MEDS: LEVOFLOXACIN 750 MG TAB PO SCH (12:37)
[2016-11-18] MEDS: BACITRACIN TOP OINT 15 GM TUBE TOPICAL SCH ×2 (12:37→20:25)
[2016-11-18] MEDS: SODIUM CHLOR 0.9% 1000 ML INJ 1,000 ML IV SCH (13:00)
--- NOTE | 2016-11-18 14:37 | HHI.CCPN ---
Subjective Remarks/Hospital Course 10/07: 56-year-old male presents with intracranial bleed. Patient was [facility] As per the paramedics and the nurse who assisted the patient said that patient earlier this morning was coming down the stairs when he started feeling some left-sided weakness and numbness. He called 911 and by the time EMS arrived they detected some deficit and called a stroke alert. Patient was taken to [facility]. When patient arrived his mental status started to decline and he was intubated emergently in the ER. A CAT scan of the head showed subarachnoid and subdural bleed. He was taking emergently to an angio suite for coiling of the aneurysm and later on to OR for subdural hematoma evacuation. 10/08: Remains sedated, orally intubated on mechanical ventilation. Arouses off sedation and following commands with both upper extremities earlier. Ventriculostomy in place. ICP 7, CPP mid 80s. 10/09: Remains sedated, orally intubated on mechanical ventilation. Arouses off sedation and follows commands with both upper extremities. Ventriculostomy in place. 10/10: Remains sedated, orally intubated on mechanical ventilation. Arouses off sedation and follows commands and both upper extremities. Ventriculostomy in place. ICP 5. Failed C Pap trial yesterday. 10/11: Extubated on 10/10, tolerating well. Awake and alert. Appears confused, moving all 4 extremities. Ventriculostomy discontinued today by neurosurgery 10/13: Patient has developed severe vasospasm at the left MCA territory on TCD's that was treated with IV route verapamil 10/14: patient extubated overnight. was originally following commands and neuro intact. TCDs this morning with increase LIs over yesterday, particularly Left MCA territory. On my evaluation early this morning, patient was aphasic, not moving the right side of his body, not following commands. SBP 140s at that time. net 2L negative/24h and uop almost 1L/hr at the time. I immediately bolused with 2L NS iv, placed arterial and central lines, started phenylephrine , increased SBP to goal 200 - 220 mmHg. called interventional neuroradiology and accompanied patient down personally to IR for IA verapamil again. I remained with the patient managing his hemodynamics down in IR and providing anxiolysis IV. I accompanied patient back up to [facility] where patient again was neuro intact and following commands. Sodium downtrending to 135 and urine studies and serum osms suggestive of urine sodium losses and high uop. added Florinef to mitigate sodium losses, and increased mivf to 500cc/hr to maintain euvolemia. later in the day patient decompensated requiring intubation for hyoxemia, cxr suggestive of pulmonary edema. 2d echo with evidence of EF 40%, septal hypokinesis, moderate MR. On levo, vaso, phenylephrine. difficult to get to goal SBP 200 mmHg, likely due to myocardial dysfunction. decreased goal to 180 - 200 mmHg to balance cardiac vs. neurologic goals. 10/15 Patient was discussed with Dr. Sullivan at shift change. Isuprel was initiated in effort to improve cardiac output as dobutamine not available and concerned with use of milrinone given long half life. Systolic blood pressure was relatively stable with perhaps some modest improvement from 170s to 180s for several hours after initiation. Notified when patient became abruptly hypotensive despite vasopressin, levophed 20 mcg/min, Greyson-Synephrine 300 mcg/m. He was also hypoxemic with sats in 80s despite PCV with PEEP 8 and FiO2 100%, respiratory rate in the 30s. He had decreased breath sounds bilaterally and was concerned for air trapping so removed from mechanical ventilation and bagged without improvement. Placed patient back on mechanical ventilation and provide recruitment maneuvers and increased PEEP to 12 which resulted in improvement of sats to 88% to 92%. Ordered Flolan. Discontinued isuprel and initiated epinephrine. R radial art line would not draw blood . Performed u/s guided femoral artery stick to confirm hypoxemia on ABG given poor wave form on pulse ox and PaO2 was 58. Placed new L radial art line and this resulted in ~ 30 point increase in SBP relative to prior line but patient ultimately on vasopressin, levophed 30 micrograms per minute, Greyson-Synephrine 300 micrograms per minute, epinephrine 12 mcg/min and unable to maintain target pressure (SBP in 150s). Given calcium chloride. patient with shaking movements all extremities, pupils 2mm and sluggish, no eye deviation. Rigors seemed most likely but unable to emergently rule out seizures so loaded with fosphenytoin to avoid secondary injury from seizure activity. WBC increasing and concern for HCAP so pancultured and placed on cefepime, vancomycin, azithromycin. Hydrocortisone 100 mg IV every 8 hours initiated due to concern for septic shock in a patient who has been refractory to all other above measures. Patient is to hemodynamically unstable and hypoxic for transport for neurologic imaging. Urine output has declined to 180-200 ML's per hour. Back off maintenance IV fluids to 200 ML's per hour. Bedside echo demonstrates decreased LV function with normal RV contractility and collapsible IVC suggesting ongoing maintenance fluid administration is appropriate. 10/15 additional visit: continued to deteriorate throughout the day. Seen multiple times. hypoxic on 100% fio2, flolan. required nimbex drip to maintain. repeat bedside critical care ultrasound still demonstrates severe LV dysfunction , decompressed RV, IVC more dilated than previous echo overnight, however still with respiratory variation. femoral arterial line placed with better waveform and higher pressure (likely SVR too high to allow accurate measurement of radial pressure). Pulse contour analysis without stroke volume variation, CI 3.6. SV 52mL. trialed additional albumin without improvement in hemodynamics. uop slower than before, but still significant salt wasting in the urine- sodium dropped to 125 from 132 despite already on 3% nacl infusion and aggressive sodium replacements. forced to give 23% nacl and salt tabs. declining clinically despite maximal therapy. 10/16: continues to be maximally critically ill. LV dysfunction persists. starting to get volume overloaded, but given concern for ongoing cerebral vasospasm, unable to actively diurese patient. sodium wasting persists, but uop downtrending slightly. very hypokalemic today, likely due to steroids. remains intubated, sedated, paralyzed, on flolan. CXR today appears worse with worsening airspace disease. Lactate remains slightly elevated, confirming persistent shock. 10/17: Lung infiltrates dense bilaterally, reflected in shunting and problems with oxygenation. Developed vasospasm on TCDs and required angiogram and intra- arterial verapamil again today. 10/18: SBP 160 - 170 range. FiO2 0.55. BNP > 5000. Not tolerating attempts at maintaining higher BP due to worsening heart failure. Several episodes of vasospasm. Watch daily TCDs closely. Sputum no growth. 10/19: Tmax 99.8. Currently 99. Remains on 4 vasopressors and epoprostenol 10/20: Yesterday. Returned IR for intra-arterial calcium channel jose infusion for vasospasm. Transcranial Dopplers today Still pending. Remains on significant vasopressor support. 10/21: Good response to diuresis, check BNP. TCDs pending. Heart failure remains a major problem. 10/22: CVP 21 - 22, finger tips blue, digits pale white despite high dose milrinone dilation. Greyson and vaso much reduced. Will try diltiazem gtt for digital ischemia. Urine remains > 200/hr and proximal limbs are well perfused. This digital ischemia appears to be a local phenomenon ala Raynaud's. New subcutaneous emphysema right anterior chest wall. 10/23: Old CVL removed. Fingertips remain marginal, some necrotic despite diltiazem and milrinone treatment for digital ischemia. Cardiac output > 7 liters/min and urine copious, confirming good perfusion pressure and flow. This continues to be a local phenomenon of the digits ala Raynaud's. We are trying to wean vasopressors off but are required to maintaining a cerebral perfusion pressure suitable for the treatment of aneurysmal subarachnoid bleed. Frankly, the importance of brain function eclipses fingertips. 10/24: Afebrile. Well perfused except for index finger left hand, few tips fingers right. Arms and hands warmer with resolving circumferential edema. Diltiazem and milrinone gtt continue. Greyson to 10 mics/min. 10/25: Digits are warm and well perfused except left index and right 4th fingertips; demarcated and not viable. Dry. Diltiazem and milrinone infusions continue to help reverse digital ischemia. 10/26: Forced diuresis continues and BP remains nicely elevated. Hands and digits warm aside from left index and right 4th fingertips which have demarcated. 10/27: Good response to diuretics. Perfusion pressure and documented flow excellent. Continue to wean vent. 10/28: Start SBTs. Fluid balance back toward normal. 10/29: Tolerating SBTs. Lowering sedation. Edema resolving. 10/30: Tolerating tube feeds, will taper off TPN and remove central line. Continue diuretics. 10/31: net -3L over 24h. mental status at baseline. tolerating CPAP, but does not have the mental status to protect airway. will likely need trach/peg. placement will be a problem due to lack of funding. 11/01: no changes or improvements. discussed with yesterday and she "does not want any more setbacks" and would prefer trach versus trial of extubation. I agree with her assessment. plan for trach today. placement is still a significant problem. net -2L/24h. 11/02: wbc uptrending, febrile. antonio cultured, started empiric abx today. failed SBT overnight and placed back on rate. 11/03: Tolerating CPAP today, following commands. Low-grade fever cultures pending. WBC count normal today 11/04: Remains on TPs since yesterday. Neuro exam remains stable. Follows commands weakly. Na 152 11/05: Remains off vent for 48 hours now. Sitting up in stretcher chair today. Na improved to 149. remains weak but improving 11/06: Continues to tolerate TPs well. Neuro exam unchanged. Sodium 148 today. Continues to spike intermittent fever Tmax 102.7. 11/07: Continued fevers, no leukocytosis. 11/08: Stable for replacement of bone flap. 11/09: Getting a bit excessively diuresed, will decrease lasix and convert to PO. Fingertips and toes demarcating as expected. No immediate action required except for continued diltiazem therapy. Clearly a Raynaud's type digital ischemia as peripheral perfusion and urine output indicated excellent peripheral perfusion. 11/10: Tracks with eyes today, nods to questions. Failed swallow again. 11/11: Plan for PEG, GI consulted. Bone flap replacement on hold due to blood cultures and fever. 11/12: May get PEG today, Bone flap to be replaced coming week per Dr. Perry. Afebrile no white count 11/13: Neuro exam unchanged. Na was 150 yesterday, repeat CMP pending. Left flap remains sunken 11/14: emesis overnight with ? aspiration event. no increased O2 requirement, but fever to 102.5 today. recultured. no complaints from patient. 11/15: No changes. still low suspicion for infection. Awaiting ID clearance for bone flap replacement. also awaiting placement SUBJ 11/16: Placed on full ventilator support overnight for acute hypoxemic respiratory failure due to mucous plugging. Mucomyst added. Not on any sedation. Chest x-ray back to baseline-no need a bronchoscopy at this time, but will do if there is recurrent plugging. Will check sputum culture, and trach site culture 11/17: Breathing comfortably on the vent, on CPAP now. Off all sedation. We'll attempt T piece yesterday. Sodium normal 11/18: Currently tolerating TP. Patient had a few episodes of nausea vomiting. KUB shows ileus. Overnight was started on Reglan IV and when necessary Zofran. We'll keep nothing by mouth until ileus resolved Objective Vital Signs Date Time Temp Pulse Resp B/P (MAP) Pulse Ox O2 Delivery O2 Flow Rate FiO2 11/18/16 12:00 100.6 109 28 117/70 (86) 99 11/18/16 08:48 T-piece 6.00 40 Intake and Output 11/18/16 11/18/16 11/19/16 08:00 16:00 00:00 Intake Total 1448 ml Output Total 225 ml Balance 1223 ml Result Diagram: 11/18/16 0354 11/18/16 0354 Other Results Microbiology Date/Time Source Procedure Growth Status 11/16/16 06:00 Sputum Endotracheal Gram Stain - Final Complete 11/16/16 06:00 Sputum Endotracheal Sputum Culture - Final HEAVY GROWTH NORMAL RESPIRATORY YOAN Complete Imaging Last Impressions Chest X-Ray 10/20/16 0000 Signed Impressions: Service Date/Time: October 03:47 - CONCLUSION: 1. Stable tubes and lines. 2. Stable bilateral lower lung zone airspace disease. 3. Stable small right pleural effusion. 4. No significant interval change. Kev Vergara MD Transcranial Doppler Study Complete 10/19/16 0600 Signed Impressions: Service Date/Time: Wednesday, October 19, 2016 08:02 - CONCLUSION: Suspect developing right MCA vasospasm Yosvany Polk MD Liver Ultrasound 10/19/16 0000 Signed Impressions: Service Date/Time: Wednesday, October 19, 2016 11:20 - CONCLUSION: 1. Sludge filled gallbladder with thickened wall. 2. Moderate size bilateral pleural effusions and mild upper abdominal ascites. Santos Vazquez MD Head CT 10/17/16 0000 Signed Impressions: Service Date/Time: Monday, October 17, 2016 15:06 - CONCLUSION: Ventricles are slightly larger without ventriculostomy. Edema in the left hemisphere the brain herniating through the operative site. Remington Woodward MD FACR Cerebral Arteriogram 10/17/16 0000 Signed Impressions: Service Date/Time: Monday, October 17, 2016 00:00 - CONCLUSION: 1. Uncompensated spasmolysis of the left middle cerebral artery Harvey Morejon MD Infusion Non-thrombolysis 10/14/16 1103 Signed Impressions: Service Date/Time: Friday, October 14, 2016 10:21 - CONCLUSION: 1. Uncomplicated infusion for spasmolysis Harvey Morejon MD Neck CTA 10/07/16 0000 Signed Impressions: Service Date/Time: Friday, October 07, 2016 15:03 - CONCLUSION: 1. Mild carotid bulb atherosclerotic calcification bilaterally. However, no significant stenosis is present in either internal carotid artery. 2. Paranasal sinus mucoperiosteal thickening. 3. Please refer to brain CTA report for description of the intracranial findings. Yosvany Ramirez MD Head CTA 10/07/16 0000 Signed Impressions: Service Date/Time: Friday, October 07, 2016 15:03 - CONCLUSION: 1. 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 2. Large left subdural hematoma measuring 1.3 cm in depth with a significant, 1.6 cm left to right subfalcine shift. Joni Shelton MD Objective Remarks GENERAL: 56-year-old male. On TP HEAD: Status post left craniectomy. Left flap sunken, Incision healing well EYES: About 3 mm bilaterally and reactive NECK: Trachea midline. 8.0 Shiley cuffed trach, minimally elevated remains surrounding the trach site CARDIOVASCULAR: normal rate, regular rhythm. Sinus by tele. RESPIRATORY: TP. Bilateral course rhonchi GASTROINTESTINAL: Abdomen soft, non-tender, nondistended. MUSCULOSKELETAL: Ischemic changes worst to left index finger tip, right 4th fingertip, and majority of R toes. Demarcating, dry. NEURO EXAM: Opens eyes and follows command, right UE weaker than left, follows commands x4. Procedures 10/13 Four-vessel cerebral angiography with verapamil treatment of vasospasm A/P Assessment and Plan Neuro/Psych Status post left frontotemporal parietal craniectomy 10/08 for evacuation subdural hematoma/duraplasty Left subdural hematoma - 1.3 cm with 1.6 shift left to right Subarachnoid hemorrhage Alvarado and Rodriguez 5, Carroll grade 4 - left P-comm status post 4 coiling 10/08 - Nimodipine completed 21 days. Initiated 10/13. Levetiracetam 500 mg per tube q12h. - 10/13 and 10/14 and 10/17) 10/19 left MCA territory vasospasm, status post successful verapamil treatment by IR with 20 mg verapamil - 10/17 CT brain - less hemisphere edema with herniation through left craniotomy site, now improved. - Dr. Perry/neurosurgery. Plan to replace bone flap when cleared by ID Respiratory: Acute hypoxic Respiratory failure secondary to mucous plugging Possible healthcare associated pneumonia ARDS- resolved Noncardiogenic/neurogenic pulmonary edema- resolved. Chronic respiratory failure requiring tracheostomy -- Nebs, HOB at 30 degrees. TP today -- Albuterol/Atrovent every 6 hours with albuterol aerosols every 2 hours for Dyspnea. Mucomyst added -- Follow-up on sputum culture -- s/p Trach Dr. Sullivan/Dr. Collazo 11/01 Cardiovascular: Septic and cardiogenic shock- resolved. LV dysfunction secondary to SAH - persistent, now resolved Elevated troponin- secondary to SAH, unlikely to be ACS. - resolved. Pulmonary hypertension Continue diuresis. free water 200mL per tube q6h. Echocardiogram 10/14/16 revealed EF 40-45%. Septal hypokinesis. Moderate MR. Severe pulmonary hypertension with pulmonary artery pressures estimated 61 mmHg Limited Echo 11/06: LVEF 60-65%, Trivial mitral and tricuspid regurgitation, No vegetations noted. Renal: Cerebral Salt Wasting/SIADH-resolved now hypernatremic Strict I/Os. See FEN below. Creatinine currently within normal limits -> resolved. Clinically dehydrated, and nothing by mouth for ileus. IV normal saline at 75 mill for or for at least 24 hours FEN/GI: Ileus Severe hyponatremia-resolved now hypernatremic Hypokalemia Elevated transaminases Hyperammonemia - Nothing by mouth except meds due to ileus. Continue Reglan, follow-up KUB 11/19/16 - free water per tube 300mL po q4h. - ICU electrolyte protocol. aggressively replace potassium losses. - Lansoprazole 30 mg by tube daily for GI prophylaxis - Continue bowel regimen - Continue PEG feeding. s/p PEG 11/12/16 Heme/ID: Septic Shock- resolved. Possible HCAP New Fever, leukocytosis, staph epi bacteremia - limited Echo to evaluate vegetation-neg. ID following - Follow-up on sputum culture, trach site culture - Digital Ischemia with necrosis, conservative management - s/p Diltiazem and milrinone infusions - Digits have demarcated, allow auto amputation. Cardizem PO (for digital ischemia, Raynaud's) Pertinent cultures 10/15 - blood cultures - 1 out of 4 anaerobic gram-negative cocci possibly Veillonella 10/15 - sputum - beta strep not A, strep species 10/19 cultures NG 10/21 1/4 bottles blood cultures coag negative staph. Culture 11/01. coag neg stah 03/19 bottles 11/16 sputum in trach site cultures negative s/p Levaquin x 7 days end 11/15/16 Diflucan duration per ID (started 11/06/16) Endocrine: Presumed Adrenal Insufficiency Discontinued fludrocortisone 10/18. Sliding-scale insulin with NovoLog -Accu-Cheks every 4 hours to maintain euglycemia d/cd Levemir bid. Taper off cortisone -> done Prophylaxis: GI Prophylaxis - lansoprazole DVT Prophylaxis-- SCDs, heparin subcutaneous Lines: - 10/14 right SC TLC, removed 10/22 - 10/14 right radial art line, removed 10/14 - 10/15 left radial art line, removed 10/16 - 10/22 left groin triple lumen placed, d/c 10/30 - d/c ramires. Overall impression: No change. follow up culture from new fever, does not appear infected. needs bone flap replaced and placement. The patient's digital ischemia developed when he had a cardiac output over 8.0 liters/min, CVP was over 20 mm Hg, and urine over 75 ml/hr for many days. BNP was elevated at 777. His hands and feet were warm but the fingers and toes became cold, white, nearly cadaveric. Greyson synephrine was only vasopressor and it was at 30 units/min only. We stopped it immediately and started milrinone and cardizem iv infusions. Most fingers and toes responded well to the vascular dilators but a few digits demarcated and became necrotic. Anticoagulation was not an option in face of recent aneurysm rupture and gastritis. Patients with this degree of digital ischemia (severe Raynaud's) usually have an underlying illness such as malignancy, mixed connective tissue disorder, collagen vascular disease, rheumatoid disease, etc. This workup can progress after he has cleared exogenous steroids which were just stopped. He's in a pretty revved up inflammatory state now and the lab values will be altered by it. Overall impression: Tolerating CPAP now T piece. Nothing by mouth due to ileus. Follow-up KUB tomorrow Harvey Bar MD Nov 18, 2016 14:37
[2016-11-18] MEDS: MELATONIN 5 MG TAB PO SCH (19:35)
[2016-11-19] VITALS (18 sets, daily range): BP systolic 105–124; BP diastolic 69–73; PULSE 79–102; RESP 23–28; TEMP 98–98.3; O2SAT 92–100
[2016-11-19] MEDS: METOCLOPRAMIDE HCL 10 MG/2 ML VIAL IV PUSH SCH ×3 (01:08→17:39)
[2016-11-19] MEDS: SODIUM CHLOR 0.9% 1000 ML INJ 1,000 ML IV SCH (01:08)
[2016-11-19] MEDS: CHLORHEXIDINE GLUCONATE 2 % 1 PACK (2 CLOTHS) TOP SCH (01:19)
[2016-11-19] MEDS: HYDROmorphone HCL PF 1 MG/ML VIAL IV PUSH PRN (01:42)
[2016-11-19] MEDS: RESP: ACETYLCYSTEINE 20% 30 ML NEB NEB SCH ×4 (03:34→21:13)
[2016-11-19] MEDS: RESP: ALBUTEROL 2.5 MG/IPRATROPIUM 0.5 MG NEB (SCH) NEB ×4 (03:34→21:12)
--- NOTE | 2016-11-19 03:36 | RADRPT ---
EXAM DATE/TIME: 11/19/2016 02:44 [facility] COMPARISON: ABDOMEN KUB ONLY, November 18, 2016, 7:19. INDICATIONS : Evaluate for ileus MEDICAL HISTORY : Hypertension. Seizures, Subarachnoid hemmorhage SURGICAL HISTORY : Craniotomy. Ventriculostomy ENCOUNTER: Subsequent ACUITY: 1 month PAIN SCORE: 8/10 LOCATION: Bilateral Abdomen FINDINGS: 2 supine frontal views of the abdomen showed no significant change. Gas-filled loops of mildly disten ded large and small bowel. Gas is seen to the level of the rectosigmoid junction. No gross pneumoperi toneum. No organomegaly. A venous calcification overlies the right pelvis. CONCLUSION: Unchanged bowel gas pattern potentially relating to an ileus. Santos Crockett Jr., MD on November 19, 2016 at 3:33 Board Certified Radiologist. This report was verified electronically.
[2016-11-19] MEDS: FREE WATER G-TUBE SCH ×4 (04:00→20:00)
[2016-11-19] MEDS: DILTIAZEM HCL 90 MG TAB PO SCH ×4 (05:04→17:39)
[2016-11-19 05:22] LABS: HEMATOCRIT 24.4 % (39.0-51.0); MEAN CELL VOLUME 95.3 FL (80.0-100.0); MEAN CORPUSCULAR HEMOGLOBIN 32.1 PG (27.0-34.0); MEAN CORPUSCULAR HGB CONC 33.7 % (32.0-36.0); PLATELET COUNT 273 TH/MM3 (150-450); RED BLOOD COUNT 2.56 MIL/MM3 (4.50-5.90); RED CELL DISTRIBUTION WIDTH 14.7 % (11.6-17.2); REVIEW FLAG FINAL; WHITE BLOOD COUNT 3.7 TH/MM3 (4.0-11.0)
[2016-11-19 05:42] LABS: BICARBONATE 22.3 MEQ/L (21.0-32.0); POTASSIUM 3.8 MEQ/L (3.5-5.1)
--- NOTE | 2016-11-19 08:42 | HHI.CCPN ---
Subjective Remarks/Hospital Course 10/07: 56-year-old male presents with intracranial bleed. Patient was transferred from [facility] at [facility]. As per the paramedics and the nurse who assisted the patient said that patient earlier this morning was coming down the stairs when he started feeling some left-sided weakness and numbness. He called 911 and by the time EMS arrived they detected some deficit and called a stroke alert. Patient was taken to [facility]. When patient arrived his mental status started to decline and he was intubated emergently in the ER. A CAT scan of the head showed subarachnoid and subdural bleed. He was taking emergently to an angio suite for coiling of the aneurysm and later on to OR for subdural hematoma evacuation. 10/08: Remains sedated, orally intubated on mechanical ventilation. Arouses off sedation and following commands with both upper extremities earlier. Ventriculostomy in place. ICP 7, CPP mid 80s. 10/09: Remains sedated, orally intubated on mechanical ventilation. Arouses off sedation and follows commands with both upper extremities. Ventriculostomy in place. 10/10: Remains sedated, orally intubated on mechanical ventilation. Arouses off sedation and follows commands and both upper extremities. Ventriculostomy in place. ICP 5. Failed C Pap trial yesterday. 10/11: Extubated on 10/10, tolerating well. Awake and alert. Appears confused, moving all 4 extremities. Ventriculostomy discontinued today by neurosurgery 10/13: Patient has developed severe vasospasm at the left MCA territory on TCD's that was treated with IV route verapamil 10/14: patient extubated overnight. was originally following commands and neuro intact. TCDs this morning with increase LIs over yesterday, particularly Left MCA territory. On my evaluation early this morning, patient was aphasic, not moving the right side of his body, not following commands. SBP 140s at that time. net 2L negative/24h and uop almost 1L/hr at the time. I immediately bolused with 2L NS iv, placed arterial and central lines, started phenylephrine , increased SBP to goal 200 - 220 mmHg. called interventional neuroradiology and accompanied patient down personally to IR for IA verapamil again. I remained with the patient managing his hemodynamics down in IR and providing anxiolysis IV. I accompanied patient back up to [facility] where patient again was neuro intact and following commands. Sodium downtrending to 135 and urine studies and serum osms suggestive of urine sodium losses and high uop. added Florinef to mitigate sodium losses, and increased mivf to 500cc/hr to maintain euvolemia. later in the day patient decompensated requiring intubation for hyoxemia, cxr suggestive of pulmonary edema. 2d echo with evidence of EF 40%, septal hypokinesis, moderate MR. On levo, vaso, phenylephrine. difficult to get to goal SBP 200 mmHg, likely due to myocardial dysfunction. decreased goal to 180 - 200 mmHg to balance cardiac vs. neurologic goals. 10/15 Patient was discussed with Dr. Sullivan at shift change. Isuprel was initiated in effort to improve cardiac output as dobutamine not available and concerned with use of milrinone given long half life. Systolic blood pressure was relatively stable with perhaps some modest improvement from 170s to 180s for several hours after initiation. Notified when patient became abruptly hypotensive despite vasopressin, levophed 20 mcg/min, Greyson-Synephrine 300 mcg/m. He was also hypoxemic with sats in 80s despite PCV with PEEP 8 and FiO2 100%, respiratory rate in the 30s. He had decreased breath sounds bilaterally and was concerned for air trapping so removed from mechanical ventilation and bagged without improvement. Placed patient back on mechanical ventilation and provide recruitment maneuvers and increased PEEP to 12 which resulted in improvement of sats to 88% to 92%. Ordered Flolan. Discontinued isuprel and initiated epinephrine. R radial art line would not draw blood . Performed u/s guided femoral artery stick to confirm hypoxemia on ABG given poor wave form on pulse ox and PaO2 was 58. Placed new L radial art line and this resulted in ~ 30 point increase in SBP relative to prior line but patient ultimately on vasopressin, levophed 30 micrograms per minute, Greyson-Synephrine 300 micrograms per minute, epinephrine 12 mcg/min and unable to maintain target pressure (SBP in 150s). Given calcium chloride. patient with shaking movements all extremities, pupils 2mm and sluggish, no eye deviation. Rigors seemed most likely but unable to emergently rule out seizures so loaded with fosphenytoin to avoid secondary injury from seizure activity. WBC increasing and concern for HCAP so pancultured and placed on cefepime, vancomycin, azithromycin. Hydrocortisone 100 mg IV every 8 hours initiated due to concern for septic shock in a patient who has been refractory to all other above measures. Patient is to hemodynamically unstable and hypoxic for transport for neurologic imaging. Urine output has declined to 180-200 ML's per hour. Back off maintenance IV fluids to 200 ML's per hour. Bedside echo demonstrates decreased LV function with normal RV contractility and collapsible IVC suggesting ongoing maintenance fluid administration is appropriate. 10/15 additional visit: continued to deteriorate throughout the day. Seen multiple times. hypoxic on 100% fio2, flolan. required nimbex drip to maintain. repeat bedside critical care ultrasound still demonstrates severe LV dysfunction , decompressed RV, IVC more dilated than previous echo overnight, however still with respiratory variation. femoral arterial line placed with better waveform and higher pressure (likely SVR too high to allow accurate measurement of radial pressure). Pulse contour analysis without stroke volume variation, CI 3.6. SV 52mL. trialed additional albumin without improvement in hemodynamics. uop slower than before, but still significant salt wasting in the urine- sodium dropped to 125 from 132 despite already on 3% nacl infusion and aggressive sodium replacements. forced to give 23% nacl and salt tabs. declining clinically despite maximal therapy. 10/16: continues to be maximally critically ill. LV dysfunction persists. starting to get volume overloaded, but given concern for ongoing cerebral vasospasm, unable to actively diurese patient. sodium wasting persists, but uop downtrending slightly. very hypokalemic today, likely due to steroids. remains intubated, sedated, paralyzed, on flolan. CXR today appears worse with worsening airspace disease. Lactate remains slightly elevated, confirming persistent shock. 10/17: Lung infiltrates dense bilaterally, reflected in shunting and problems with oxygenation. Developed vasospasm on TCDs and required angiogram and intra- arterial verapamil again today. 10/18: SBP 160 - 170 range. FiO2 0.55. BNP > 5000. Not tolerating attempts at maintaining higher BP due to worsening heart failure. Several episodes of vasospasm. Watch daily TCDs closely. Sputum no growth. 10/19: Tmax 99.8. Currently 99. Remains on 4 vasopressors and epoprostenol 10/20: Yesterday. Returned IR for intra-arterial calcium channel jose infusion for vasospasm. Transcranial Dopplers today Still pending. Remains on significant vasopressor support. 10/21: Good response to diuresis, check BNP. TCDs pending. Heart failure remains a major problem. 10/22: CVP 21 - 22, finger tips blue, digits pale white despite high dose milrinone dilation. Greyson and vaso much reduced. Will try diltiazem gtt for digital ischemia. Urine remains > 200/hr and proximal limbs are well perfused. This digital ischemia appears to be a local phenomenon ala Raynaud's. New subcutaneous emphysema right anterior chest wall. 10/23: Old CVL removed. Fingertips remain marginal, some necrotic despite diltiazem and milrinone treatment for digital ischemia. Cardiac output > 7 liters/min and urine copious, confirming good perfusion pressure and flow. This continues to be a local phenomenon of the digits ala Raynaud's. We are trying to wean vasopressors off but are required to maintaining a cerebral perfusion pressure suitable for the treatment of aneurysmal subarachnoid bleed. Frankly, the importance of brain function eclipses fingertips. 10/24: Afebrile. Well perfused except for index finger left hand, few tips fingers right. Arms and hands warmer with resolving circumferential edema. Diltiazem and milrinone gtt continue. Greyson to 10 mics/min. 10/25: Digits are warm and well perfused except left index and right 4th fingertips; demarcated and not viable. Dry. Diltiazem and milrinone infusions continue to help reverse digital ischemia. 10/26: Forced diuresis continues and BP remains nicely elevated. Hands and digits warm aside from left index and right 4th fingertips which have demarcated. 10/27: Good response to diuretics. Perfusion pressure and documented flow excellent. Continue to wean vent. 10/28: Start SBTs. Fluid balance back toward normal. 10/29: Tolerating SBTs. Lowering sedation. Edema resolving. 10/30: Tolerating tube feeds, will taper off TPN and remove central line. Continue diuretics. 10/31: net -3L over 24h. mental status at baseline. tolerating CPAP, but does not have the mental status to protect airway. will likely need trach/peg. placement will be a problem due to lack of funding. 11/01: no changes or improvements. discussed with yesterday and she "does not want any more setbacks" and would prefer trach versus trial of extubation. I agree with her assessment. plan for trach today. placement is still a significant problem. net -2L/24h. 11/02: wbc uptrending, febrile. antonio cultured, started empiric abx today. failed SBT overnight and placed back on rate. 11/03: Tolerating CPAP today, following commands. Low-grade fever cultures pending. WBC count normal today 11/04: Remains on TPs since yesterday. Neuro exam remains stable. Follows commands weakly. Na 152 11/05: Remains off vent for 48 hours now. Sitting up in stretcher chair today. Na improved to 149. remains weak but improving 11/06: Continues to tolerate TPs well. Neuro exam unchanged. Sodium 148 today. Continues to spike intermittent fever Tmax 102.7. 11/07: Continued fevers, no leukocytosis. 11/08: Stable for replacement of bone flap. 11/09: Getting a bit excessively diuresed, will decrease lasix and convert to PO. Fingertips and toes demarcating as expected. No immediate action required except for continued diltiazem therapy. Clearly a Raynaud's type digital ischemia as peripheral perfusion and urine output indicated excellent peripheral perfusion. 11/10: Tracks with eyes today, nods to questions. Failed swallow again. 11/11: Plan for PEG, GI consulted. Bone flap replacement on hold due to blood cultures and fever. 11/12: May get PEG today, Bone flap to be replaced coming week per Dr. Perry. Afebrile no white count 11/13: Neuro exam unchanged. Na was 150 yesterday, repeat CMP pending. Left flap remains sunken 11/14: emesis overnight with ? aspiration event. no increased O2 requirement, but fever to 102.5 today. recultured. no complaints from patient. 11/15: No changes. still low suspicion for infection. Awaiting ID clearance for bone flap replacement. also awaiting placement SUBJ 11/16: Placed on full ventilator support overnight for acute hypoxemic respiratory failure due to mucous plugging. Mucomyst added. Not on any sedation. Chest x-ray back to baseline-no need a bronchoscopy at this time, but will do if there is recurrent plugging. Will check sputum culture, and trach site culture 11/17: Breathing comfortably on the vent, on CPAP now. Off all sedation. We'll attempt T piece yesterday. Sodium normal 11/18: Currently tolerating TP. Patient had a few episodes of nausea vomiting. KUB shows ileus. Overnight was started on Reglan IV and when necessary Zofran. We'll keep nothing by mouth until ileus resolved. 11/19: Back on vent rate due to poor spontaneous effort. Hgb down 2 gms - looks like dilution; follow closely. VS without change. Ileus has resolved. Objective Vital Signs Date Time Temp Pulse Resp B/P (MAP) Pulse Ox O2 Delivery O2 Flow Rate FiO2 11/19/16 08:00 87 11/19/16 08:00 98.1 23 110/70 (83) 98 11/19/16 08:00 40 11/19/16 07:00 Mechanical Ventilator 11/18/16 08:48 6.00 Intake and Output 11/19/16 11/19/16 11/20/16 08:00 16:00 00:00 Intake Total 1338 ml Output Total 500 ml Balance 838 ml Result Diagram: 11/19/16 0443 11/19/16 0443 Other Results Microbiology Date/Time Source Procedure Growth Status 11/16/16 11:13 Wound Neck Gram Stain - Final Complete 11/16/16 11:13 Wound Neck Wound Culture - Final HEAVY GROWTH NORMAL SKIN YOAN... Complete Imaging Last Impressions Chest X-Ray 10/20/16 0000 Signed Impressions: Service Date/Time: October 03:47 - CONCLUSION: 1. Stable tubes and lines. 2. Stable bilateral lower lung zone airspace disease. 3. Stable small right pleural effusion. 4. No significant interval change. Kev Vergara MD Transcranial Doppler Study Complete 10/19/16 0600 Signed Impressions: Service Date/Time: Wednesday, October 19, 2016 08:02 - CONCLUSION: Suspect developing right MCA vasospasm Yosvany Polk MD Liver Ultrasound 10/19/16 0000 Signed Impressions: Service Date/Time: Wednesday, October 19, 2016 11:20 - CONCLUSION: 1. Sludge filled gallbladder with thickened wall. 2. Moderate size bilateral pleural effusions and mild upper abdominal ascites. Santos Vazquez MD Head CT 10/17/16 0000 Signed Impressions: Service Date/Time: Monday, October 17, 2016 15:06 - CONCLUSION: Ventricles are slightly larger without ventriculostomy. Edema in the left hemisphere the brain herniating through the operative site. Remington Woodward MD FACR Cerebral Arteriogram 10/17/16 0000 Signed Impressions: Service Date/Time: Monday, October 17, 2016 00:00 - CONCLUSION: 1. Uncompensated spasmolysis of the left middle cerebral artery Harvey Morejon MD Infusion Non-thrombolysis 10/14/16 1103 Signed Impressions: Service Date/Time: Friday, October 14, 2016 10:21 - CONCLUSION: 1. Uncomplicated infusion for spasmolysis Harvey Morejon MD Neck CTA 10/07/16 0000 Signed Impressions: Service Date/Time: Friday, October 07, 2016 15:03 - CONCLUSION: 1. Mild carotid bulb atherosclerotic calcification bilaterally. However, no significant stenosis is present in either internal carotid artery. 2. Paranasal sinus mucoperiosteal thickening. 3. Please refer to brain CTA report for description of the intracranial findings. Yosvany Ramirez MD Head CTA 10/07/16 0000 Signed Impressions: Service Date/Time: Friday, October 07, 2016 15:03 - CONCLUSION: 1. 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 2. Large left subdural hematoma measuring 1.3 cm in depth with a significant, 1.6 cm left to right subfalcine shift. Joni Shelton MD Objective Remarks GENERAL: 56-year-old male. On TP HEAD: Status post left craniectomy. Left flap sunken, Incision healing well EYES: About 3 mm bilaterally and reactive NECK: Trachea midline. 8.0 Shiley cuffed trach, minimally elevated remains surrounding the trach site CARDIOVASCULAR: normal rate, regular rhythm. Sinus by tele. RESPIRATORY: TP. Bilateral course rhonchi, good air movement. GASTROINTESTINAL: Abdomen soft, non-tender, nondistended. BS active. No guarding. MUSCULOSKELETAL: Ischemic changes worst to left index finger tip, right 4th fingertip, and majority of R toes. Demarcating, dry. NEURO EXAM: Opens eyes and follows command, right UE weaker than left, follows commands x4. Procedures 10/13 Four-vessel cerebral angiography with verapamil treatment of vasospasm A/P Assessment and Plan Neuro/Psych Status post left frontotemporal parietal craniectomy 10/08 for evacuation subdural hematoma/duraplasty Left subdural hematoma - 1.3 cm with 1.6 shift left to right Subarachnoid hemorrhage Alvarado and Rodriguez 5, Carroll grade 4 - left P-comm status post 4 coiling 10/08 - Nimodipine completed 21 days. Initiated 10/13. Levetiracetam 500 mg per tube q12h. - 10/13 and 10/14 and 10/17) 10/19 left MCA territory vasospasm, status post successful verapamil treatment by IR with 20 mg verapamil - 10/17 CT brain - less hemisphere edema with herniation through left craniotomy site, now improved. - Dr. Perry/neurosurgery. Plan to replace bone flap when cleared by ID Respiratory: Acute hypoxic Respiratory failure secondary to mucous plugging Possible healthcare associated pneumonia ARDS- resolved Noncardiogenic/neurogenic pulmonary edema- resolved. Chronic respiratory failure requiring tracheostomy -- Nebs, HOB at 30 degrees. TP today -- Albuterol/Atrovent every 6 hours with albuterol aerosols every 2 hours for Dyspnea. Mucomyst added -- Follow-up on sputum culture -- s/p Trach Dr. Sullivan/Dr. Collazo 11/01 Cardiovascular: Septic and cardiogenic shock- resolved. LV dysfunction secondary to SAH - persistent, now resolved Elevated troponin- secondary to SAH, unlikely to be ACS. - resolved. Pulmonary hypertension Continue diuresis. free water 200mL per tube q6h. Echocardiogram 10/14/16 revealed EF 40-45%. Septal hypokinesis. Moderate MR. Severe pulmonary hypertension with pulmonary artery pressures estimated 61 mmHg Limited Echo 11/06: LVEF 60-65%, Trivial mitral and tricuspid regurgitation, No vegetations noted. Renal: Cerebral Salt Wasting/SIADH-resolved now hypernatremic Strict I/Os. See FEN below. Creatinine currently within normal limits -> resolved. Clinically dehydrated, and nothing by mouth for ileus. IV normal saline at 75 mill for or for at least 24 hours FEN/GI: Ileus Severe hyponatremia-resolved now hypernatremic Hypokalemia Elevated transaminases Hyperammonemia - Nothing by mouth except meds due to ileus. Continue Reglan, follow-up KUB 11/19/16 - free water per tube 300mL po q4h. - ICU electrolyte protocol. aggressively replace potassium losses. - Lansoprazole 30 mg by tube daily for GI prophylaxis - Continue bowel regimen - Continue PEG feeding. s/p PEG 11/12/16 Heme/ID: Septic Shock- resolved. Possible HCAP New Fever, leukocytosis, staph epi bacteremia - limited Echo to evaluate vegetation-neg. ID following - Follow-up on sputum culture, trach site culture - Digital Ischemia with necrosis, conservative management - s/p Diltiazem and milrinone infusions - Digits have demarcated, allow auto amputation. Cardizem PO (for digital ischemia, Raynaud's) Pertinent cultures 10/15 - blood cultures - 1 out of 4 anaerobic gram-negative cocci possibly Veillonella 10/15 - sputum - beta strep not A, strep species 10/19 cultures NG 10/21/ bottles blood cultures coag negative staph. Culture 11/01. coag neg stah 03/19 bottles 11/16 sputum in trach site cultures negative s/p Levaquin x 7 days end 11/15/16 Diflucan duration per ID (started 11/06/16) Endocrine: Presumed Adrenal Insufficiency Discontinued fludrocortisone 10/18. Sliding-scale insulin with NovoLog -Accu-Cheks every 4 hours to maintain euglycemia d/cd Levemir bid. Taper off cortisone -> done Prophylaxis: GI Prophylaxis - lansoprazole DVT Prophylaxis-- SCDs, heparin subcutaneous Lines: - 10/14 right SC TLC, removed 10/22 - 10/14 right radial art line, removed 10/14 - 10/15 left radial art line, removed 10/16 - 10/22 left groin triple lumen placed, d/c 10/30 - d/c ramires. Overall impression: No change. follow up culture from new fever, does not appear infected. needs bone flap replaced and placement. The patient's digital ischemia developed when he had a cardiac output over 8.0 liters/min, CVP was over 20 mm Hg, and urine over 75 ml/hr for many days. BNP was elevated at 777. His hands and feet were warm but the fingers and toes became cold, white, nearly cadaveric. Greyson synephrine was only vasopressor and it was at 30 units/min only. We stopped it immediately and started milrinone and cardizem iv infusions. Most fingers and toes responded well to the vascular dilators but a few digits demarcated and became necrotic. Anticoagulation was not an option in face of recent aneurysm rupture and gastritis. Patients with this degree of digital ischemia (severe Raynaud's) usually have an underlying illness such as malignancy, mixed connective tissue disorder, collagen vascular disease, rheumatoid disease, etc. This workup can progress after he has cleared exogenous steroids which were just stopped. He's in a pretty revved up inflammatory state now and the lab values will be altered by it. Overall impression: Tolerating CPAP now T piece. KUB with ileus resolved, restart TFs. Rodriguez Collazo MD Nov 19, 2016 08:41
[2016-11-19] MEDS: ARTIFICIAL TEARS OPTH SOLN 15 ML BTL EACH EYE SCH ×3 (09:00→18:00)
[2016-11-19] MEDS: LACTOBACILLUS ACIDOPHILUS TAB PO SCH ×3 (09:00→17:39)
[2016-11-19] MEDS: BENEPROTEIN POWDER 1 PACK G-TUBE SCH ×6 (09:00→17:40)
[2016-11-19] MEDS: BACITRACIN TOP OINT 15 GM TUBE TOPICAL SCH ×2 (09:00→21:00)
[2016-11-19] MEDS: FUROSEMIDE 40 MG/5 ML UNIT DOSE CUP NG SCH (09:00)
[2016-11-19] MEDS: SODIUM CHLORIDE 0.9% FLUSH 10 ML FLUSH IV FLUSH SCH ×2 (09:00→17:39)
[2016-11-19] MEDS: LEVOFLOXACIN 750 MG TAB PO SCH (09:25)
[2016-11-19] MEDS: levETIRAcetam 500 MG/5 ML UDC NG SCH ×2 (09:25→22:16)
[2016-11-19] MEDS: LANSOPRAZOLE SOLUTAB 30 MG TAB NG SCH (09:26)
[2016-11-19] MEDS: CHLORHEXIDINE 0.12% (ORAL KIT) 15 ML CUP MT SCH (20:00)
[2016-11-19] MEDS: MELATONIN 5 MG TAB PO SCH (22:16)
[2016-11-20] VITALS (15 sets, daily range): BP systolic 111–128; BP diastolic 72–81; PULSE 79–92; RESP 20–25; TEMP 98.1–98.8; O2SAT 96–100
[2016-11-20] MEDS: DILTIAZEM HCL 90 MG TAB PO SCH ×4 (00:30→19:04)
[2016-11-20] MEDS: METOCLOPRAMIDE HCL 10 MG/2 ML VIAL IV PUSH SCH ×3 (03:43→19:04)
[2016-11-20] MEDS: FREE WATER G-TUBE SCH ×5 (04:00→16:00)
[2016-11-20] MEDS: CHLORHEXIDINE GLUCONATE 2 % 1 PACK (2 CLOTHS) TOP SCH (04:00)
[2016-11-20] MEDS: RESP: ACETYLCYSTEINE 20% 30 ML NEB NEB SCH (04:24)
[2016-11-20] MEDS: RESP: ALBUTEROL 2.5 MG/IPRATROPIUM 0.5 MG NEB (SCH) NEB ×2 (04:24→08:04)
[2016-11-20 06:38] LABS: BICARBONATE 22.1 MEQ/L (21.0-32.0); POTASSIUM 3.9 MEQ/L (3.5-5.1)
[2016-11-20 06:55] LABS: HEMATOCRIT 25.7 % (39.0-51.0); MEAN CELL VOLUME 94.1 FL (80.0-100.0); MEAN CORPUSCULAR HEMOGLOBIN 31.6 PG (27.0-34.0); MEAN CORPUSCULAR HGB CONC 33.6 % (32.0-36.0); PLATELET COUNT 270 TH/MM3 (150-450); RED BLOOD COUNT 2.73 MIL/MM3 (4.50-5.90); RED CELL DISTRIBUTION WIDTH 14.2 % (11.6-17.2); REVIEW FLAG FINAL; WHITE BLOOD COUNT 3.4 TH/MM3 (4.0-11.0)
[2016-11-20] MEDS: CHLORHEXIDINE 0.12% (ORAL KIT) 15 ML CUP MT SCH ×2 (08:00→20:00)
[2016-11-20] MEDS: LACTOBACILLUS ACIDOPHILUS TAB PO SCH ×3 (08:59→19:04)
[2016-11-20] MEDS: LEVOFLOXACIN 750 MG TAB PO SCH (08:59)
[2016-11-20] MEDS: BENEPROTEIN POWDER 1 PACK G-TUBE SCH ×6 (09:00→18:00)
[2016-11-20] MEDS: levETIRAcetam 500 MG/5 ML UDC NG SCH ×2 (09:00→21:14)
[2016-11-20] MEDS: FUROSEMIDE 40 MG/5 ML UNIT DOSE CUP NG SCH (09:00)
[2016-11-20] MEDS: LANSOPRAZOLE SOLUTAB 30 MG TAB NG SCH (09:00)
[2016-11-20] MEDS: SODIUM CHLORIDE 0.9% FLUSH 10 ML FLUSH IV FLUSH SCH ×2 (09:00→20:58)
[2016-11-20] MEDS: BACITRACIN TOP OINT 15 GM TUBE TOPICAL SCH ×2 (09:00→21:00)
--- NOTE | 2016-11-20 14:41 | RADRPT ---
EXAM DATE/TIME: 11/19/2016 00:00 [place] COMPARISON: No previous studies available for comparison. INDICATIONS : Digital Ischemia with Necrosis TECHNIQUE: Four-cuff ankle and brachial pressures were obtained. Pulse cuff waveform tracings of the ankles were recorded, and ankle-brachial indices were calculated. PRESSURES (mmHg): Brachial (arm): Right 113 Left IV SITE Ankle: Right 122 Left 135 HENOK: Right 1.08 Left 1.19 PULSED CUFF WAVEFORMS: Demonstrate normal amplitude bilaterally. CONCLUSION: 1. The ABIs are within normal limits bilaterally. Miguel Woodward MD on November 20, 2016 at 14:40 Board Certified Radiologist. This report was verified electronically.
[2016-11-20] MEDS: MELATONIN 5 MG TAB PO SCH (21:14)
[2016-11-21] VITALS (14 sets, daily range): BP systolic 110–120; BP diastolic 67–77; PULSE 81–107; RESP 18–27; TEMP 98.5–99.1; O2SAT 100
[2016-11-21] MEDS: DILTIAZEM HCL 90 MG TAB PO SCH ×4 (00:08→17:30)
[2016-11-21] MEDS: METOCLOPRAMIDE HCL 10 MG/2 ML VIAL IV PUSH SCH ×3 (02:35→17:30)
[2016-11-21] MEDS: CHLORHEXIDINE GLUCONATE 2 % 1 PACK (2 CLOTHS) TOP SCH (04:00)
[2016-11-21 06:19] LABS: HEMATOCRIT 26.5 % (39.0-51.0); MEAN CELL VOLUME 93.5 FL (80.0-100.0); MEAN CORPUSCULAR HEMOGLOBIN 31.6 PG (27.0-34.0); MEAN CORPUSCULAR HGB CONC 33.8 % (32.0-36.0); PLATELET COUNT 292 TH/MM3 (150-450); RED BLOOD COUNT 2.83 MIL/MM3 (4.50-5.90); RED CELL DISTRIBUTION WIDTH 14.3 % (11.6-17.2); REVIEW FLAG FINAL
[2016-11-21 06:41] LABS: BICARBONATE 26.2 MEQ/L (21.0-32.0); POTASSIUM 3.8 MEQ/L (3.5-5.1)
[2016-11-21] MEDS: CHLORHEXIDINE 0.12% (ORAL KIT) 15 ML CUP MT SCH ×2 (08:00→20:00)
[2016-11-21] MEDS: SODIUM CHLORIDE 0.9% FLUSH 10 ML FLUSH IV FLUSH SCH ×2 (09:00→20:17)
[2016-11-21] MEDS: BENEPROTEIN POWDER 1 PACK G-TUBE SCH ×2 (09:00→13:00)
[2016-11-21] MEDS: BACITRACIN TOP OINT 15 GM TUBE TOPICAL SCH ×2 (09:00→22:37)
[2016-11-21] MEDS: levETIRAcetam 500 MG/5 ML UDC NG SCH ×2 (09:08→22:35)
[2016-11-21] MEDS: LEVOFLOXACIN 750 MG TAB PO SCH (09:09)
[2016-11-21] MEDS: LACTOBACILLUS ACIDOPHILUS TAB PO SCH ×3 (09:09→17:30)
[2016-11-21] MEDS: LANSOPRAZOLE SOLUTAB 30 MG TAB NG SCH (09:09)
[2016-11-21] MEDS: FUROSEMIDE 40 MG/5 ML UNIT DOSE CUP NG SCH (09:09)
--- NOTE | 2016-11-21 12:35 | HHI.IDPN ---
Subjective Subjective Remarks Patient is a 56-year-old male, initially admitted at [facility] after he developed acute onset of left-sided weakness and numbness. In [facility] emergency room his mental status deteriorated, and he required intubation. CT of the head showed subarachnoid bleed. He was transferred to [facility] for neurosurgical evaluation and treatment. Patient underwent angiogram and coiling of his aneurysm. He also underwent emergency surgery and had left frontal temporal parietal decompressive craniectomy, duraplasty, and evacuation of a subdural hematoma. He had a ezio hole and the ventriculostomy placement. His hospitalization was complicated by significant vasospasm of his cerebral arteries, and he had multiple angiogram and treatment of the vasospasm. He also had problem with significant LV dysfunction in both volume overload. His had hyponatremia that has been treated and corrected. He initially started having fevers and some clinical deterioration as far as infection around the first week of October. He had a sputum culture that had pneumococcus, beta- hemolytic strep and Haemophilus. He had one out of 2 blood culture that had anaerobic gram-negative cocci. He was on antibiotics up until October 23. Patient also required significant amount of pressors to maintain an adequate blood pressure to ensure cerebral perfusion. 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 Patient eventually underwent tracheostomy for his continued respiratory requirement, and had this procedure done November 01. Patient currently has been doing quite well and not requiring ventilatory support, and on T piece. Starting November 02 he started having fevers again as well as increased WBC. Repeat cultures at that time grew 2 blood cultures that had coag-negative staph. His central lines have been removed. Patient also has had liquid stool, but C. difficile is negative. Urinalysis done was unremarkable. Patient was started back on antibiotics on November 02 and has been on cefepime and IV vancomycin. He continues to have fevers. His WBC has been down to normal. His last chest x- ray yesterday showing stable infiltrates. He has no central line. He has a Maldonado catheter in place. He has an NG tube and gets tube feedings. Infectious disease consultation has been requested to evaluate the patient for persistent fevers. Notes reviewed On the vent this weekend, back on T-piece Temps ok Sputum C/S with normal resp slim CXR stable infiltrates WBC normal S/P PEG 11/11 Antibiotics Levaquin Lines PIV Past Medical History Hypertension Past Surgical History Status post trach Status post craniectomy for evacuation of subdural hematoma Allergies: Coded Allergies: No Known Allergies (Unverified , 05/06/16) Objective . Vital Signs Date Time Temp Pulse Resp B/P (MAP) Pulse Ox O2 Delivery O2 Flow Rate FiO2 11/21/16 10:00 97 11/21/16 08:00 87 11/21/16 08:00 99.1 86 20 117/74 (88) 100 11/21/16 08:00 40 11/21/16 07:00 T-Piece 6.00 40 11/21/16 06:00 81 11/21/16 04:00 81 11/21/16 04:00 98.5 81 27 112/67 (82) 100 11/21/16 02:00 82 11/21/16 00:00 98.8 84 25 110/68 (82) 100 11/21/16 00:00 84 11/20/16 22:00 83 11/20/16 20:38 96 T-piece 6.00 40 11/20/16 20:00 98.6 83 25 111/72 (85) 100 11/20/16 20:00 83 11/20/16 19:00 100 T-Piece 40 11/20/16 18:00 85 11/20/16 16:00 87 11/20/16 16:00 98.3 88 21 128/81 (97) 99 11/20/16 14:00 85 . Laboratory Tests Test 11/20/16 05:17 11/21/16 05:35 White Blood Count 3.4 TH/MM3 4.0 TH/MM3 Red Blood Count 2.73 MIL/MM3 2.83 MIL/MM3 Hemoglobin 8.6 GM/DL 9.0 GM/DL Hematocrit 25.7 % 26.5 % Mean Corpuscular Volume 94.1 FL 93.5 FL Mean Corpuscular Hemoglobin 31.6 PG 31.6 PG Mean Corpuscular Hemoglobin Concent 33.6 % 33.8 % Red Cell Distribution Width 14.2 % 14.3 % Platelet Count 270 TH/MM3 292 TH/MM3 Mean Platelet Volume 9.9 FL 9.2 FL Hematology Comments Laboratory Tests Test 11/20/16 05:17 11/21/16 05:35 Blood Urea Nitrogen 17 MG/DL 16 MG/DL Creatinine 0.44 MG/DL 0.41 MG/DL Random Glucose 105 MG/DL 108 MG/DL Calcium Level 7.9 MG/DL 7.8 MG/DL Sodium Level 139 MEQ/L 136 MEQ/L Potassium Level 3.9 MEQ/L 3.8 MEQ/L Chloride Level 109 MEQ/L 105 MEQ/L Carbon Dioxide Level 22.1 MEQ/L 26.2 MEQ/L Anion Gap 8 MEQ/L 5 MEQ/L Estimat Glomerular Filtration Rate 201 ML/MIN 218 ML/MIN Imaging Chest X-Ray 11/16/16 Signed Impressions: Service Date/Time: Wednesday, November 16, 2016 05:45 - CONCLUSION: No significant change bilateral airspace opacities. Yosvany Butler MD Chest X-Ray 11/14/16 Signed Impressions: Service Date/Time: Monday, November 14, 2016 12:12 - CONCLUSION: 1. Interval development of patchy bilateral lower lung zone airspace disease and small left pleural effusion. Findings are concerning for aspiration. Kev Vergara MD Chest X-Ray 11/11/16 Signed Impressions: Service Date/Time: Friday, November 11, 2016 20:54 - CONCLUSION: Trace right base atelectasis. Yosvany Butler MD Abdomen X-Ray 10/21/16 0600 Signed Impressions: Service Date/Time: Friday, October 21, 2016 03:50 - CONCLUSION: 1. NGT in the stomach. 2. General paucity of small bowel gas. This finding is nonspecific and occasionally may reflect fluid-filled loops of bowel. Otherwise, no dilated bowel loops to suggest significant ileus or obstruction. Kev Vergara MD Transcranial Doppler Study Complete 10/20/16 0600 Signed Impressions: Service Date/Time: October 07:54 - CONCLUSION: Slight interval elevation of flow velocity measurements and ratio on the left Yosvany Polk MD Liver Ultrasound 10/19/16 Signed Impressions: Service Date/Time: Wednesday, October 19, 2016 11:20 - CONCLUSION: 1. Sludge filled gallbladder with thickened wall. 2. Moderate size bilateral pleural effusions and mild upper abdominal ascites. Santos Vazquez MD Cerebral Arteriogram 10/19/16 Signed Impressions: Service Date/Time: Wednesday, October 19, 2016 12:47 - CONCLUSION: Uncomplicated cerebral arteriography with spasmolytic therapy as described in detail above. Yosvany Polk MD Head CT 10/17/16 0000 Signed Impressions: Service Date/Time: Monday, October 17, 2016 15:06 - CONCLUSION: Ventricles are slightly larger without ventriculostomy. Edema in the left hemisphere the brain herniating through the operative site. Remington Woodward MD FACR Infusion Non-thrombolysis 10/14/16 1103 Signed Impressions: Service Date/Time: Friday, October 14, 2016 10:21 - CONCLUSION: 1. Uncomplicated infusion for spasmolysis Harvey Morejon MD Neck CTA 10/07/16 0000 Signed Impressions: Service Date/Time: Friday, October 07, 2016 15:03 - CONCLUSION: 1. Mild carotid bulb atherosclerotic calcification bilaterally. However, no significant stenosis is present in either internal carotid artery. 2. Paranasal sinus mucoperiosteal thickening. 3. Please refer to brain CTA report for description of the intracranial findings. Yosvany Ramirez MD Head CTA 10/07/16 0000 Signed Impressions: Service Date/Time: Friday, October 07, 2016 15:03 - CONCLUSION: 1. 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 2. Large left subdural hematoma measuring 1.3 cm in depth with a significant, 1.6 cm left to right subfalcine shift. Joni Shelton MD Chest X-Ray 11/05/16 0600 Signed Impressions: Service Date/Time: Saturday, November 05, 2016 04:39 - CONCLUSION: Persistent non-consolidative infiltrates in the medial lower lungs. Santos Vazquez MD Abdomen X-Ray 10/21/16 0600 Signed Impressions: Service Date/Time: Friday, October 21, 2016 03:50 - CONCLUSION: 1. NGT in the stomach. 2. General paucity of small bowel gas. This finding is nonspecific and occasionally may reflect fluid-filled loops of bowel. Otherwise, no dilated bowel loops to suggest significant ileus or obstruction. Kev Vergara MD Transcranial Doppler Study Complete 10/20/16 0600 Signed Impressions: Service Date/Time: October 07:54 - CONCLUSION: Slight interval elevation of flow velocity measurements and ratio on the left Yosvany Polk MD Liver Ultrasound 10/19/16 0000 Signed Impressions: Service Date/Time: Wednesday, October 19, 2016 11:20 - CONCLUSION: 1. Sludge filled gallbladder with thickened wall. 2. Moderate size bilateral pleural effusions and mild upper abdominal ascites. Santos Vazquez MD Cerebral Arteriogram 10/19/16 0000 Signed Impressions: Service Date/Time: Wednesday, October 19, 2016 12:47 - CONCLUSION: Uncomplicated cerebral arteriography with spasmolytic therapy as described in detail above. Yosvany Polk MD Head CT 10/17/16 0000 Signed Impressions: Service Date/Time: Monday, October 17, 2016 15:06 - CONCLUSION: Ventricles are slightly larger without ventriculostomy. Edema in the left hemisphere the brain herniating through the operative site. Remington Woodward MD FACR Infusion Non-thrombolysis 10/14/16 1103 Signed Impressions: Service Date/Time: Friday, October 14, 2016 10:21 - CONCLUSION: 1. Uncomplicated infusion for spasmolysis Harvey Morejon MD Neck CTA 10/07/16 0000 Signed Impressions: Service Date/Time: Friday, October 07, 2016 15:03 - CONCLUSION: 1. Mild carotid bulb atherosclerotic calcification bilaterally. However, no significant stenosis is present in either internal carotid artery. 2. Paranasal sinus mucoperiosteal thickening. 3. Please refer to brain CTA report for description of the intracranial findings. Yosvany Ramirez MD Head CTA 10/07/16 0000 Signed Impressions: Service Date/Time: Friday, October 07, 2016 15:03 - CONCLUSION: 1. 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 2. Large left subdural hematoma measuring 1.3 cm in depth with a significant, 1.6 cm left to right subfalcine shift. Joni Shelton MD Physical Exam GENERAL: Looks comfortable, on T-piece SKIN: Warm and dry. Rash better. HEAD: Incision healing with several areas that have eschar, no drainage, no redness EYES: [place] conjunctiva. No petechia or hemorrhage. No scleral icterus. No injection or drainage. EARS, NOSE AND THROAT: Nose without bleeding or purulent nasal discharge. Slightly dry oral mucosa NECK: Trachea midline. Supple and not tender, no meningeal signs. Trach site ok CARDIOVASCULAR: Regular rate and rhythm. No murmurs, rubs or gallops heard RESPIRATORY: few scattered rhonchi, decreased at bases ABDOMEN: Soft, non-tender, nondistended. Bowel sounds present and normoactive. No guarding. No rebound. No organomegaly. EXTREMITIES: No clubbing, has mild pedal edema. Has dry gangrene LIF and R ring finger. All his toes have dry gangrene. No calf tenderness. NEUROLOGICAL: Awake and alert. Mild facial asymmetry. Weak in all extremities PSYCHIATRIC: Normal affect, calm and cooperative. LINE: PIV with no evidence of infection Assessment & Plan Remarks IMPRESSION Persistent fevers since 11/02, WBC has improved - temps better - ?drug - UA 11/02 ok, has condom cath - no lines - diarrhea, C diff negative - has rash, ?fever due to Abx, ?Dilantin 2 BC with 2 different Coag Neg Staph, ?real, no lines now - last line removed 10/30 - ?contaminant S/P coiling aneurysm S/P craniectomy, decompression, evacuation of SDH Respiratory failure, S/P trach, on T-piece Rash likely drug eruption, ?Abx - B-lactam, ?Dilantin LV dysfunction Recurrent fevers, etiology? - ?aspirated - has new infiltrates on CXR - temps normal now Vomiting, intermittent, etiology? - ileus RECOMMENDATION Levaquin x 7 days, to finish 11/25 Monitor temps Monitor for recurrent vomiting Monitor progress Should be ok to have OR Mitra Smith MD Nov 21, 2016 12:35
[2016-11-21] MEDS: MELATONIN 5 MG TAB PO SCH (22:35)
[2016-11-22] VITALS (15 sets, daily range): BP systolic 107–122; BP diastolic 72–78; PULSE 77–93; RESP 20–24; TEMP 98.5–99; O2SAT 96–100
[2016-11-22] MEDS: DILTIAZEM HCL 90 MG TAB PO SCH ×4 (00:33→17:46)
[2016-11-22] MEDS: METOCLOPRAMIDE HCL 10 MG/2 ML VIAL IV PUSH SCH ×3 (03:29→17:47)
[2016-11-22] MEDS: CHLORHEXIDINE GLUCONATE 2 % 1 PACK (2 CLOTHS) TOP SCH (04:00)
[2016-11-22 05:58] LABS: AUTOMATED NEUTROPHIL # 2.8 TH/MM3 (1.8-7.7); BASOPHIL % 0.9 % (0.0-2.0); EOSINOPHIL # 0.2 TH/MM3 (0-0.4); EOSINOPHIL % 3.3 % (0.0-4.0); HEMATOCRIT 30.6 % (39.0-51.0); LYMPH % 27.9 % (9.0-44.0); LYMPHOCYTE # 1.4 TH/MM3 (1.0-4.8); MEAN CELL VOLUME 92.7 FL (80.0-100.0); MEAN CORPUSCULAR HEMOGLOBIN 31.3 PG (27.0-34.0); MEAN CORPUSCULAR HGB CONC 33.8 % (32.0-36.0); MONO % 11.1 % (0.0-8.0); NEUT % 56.8 % (16.0-70.0); PLATELET COUNT 352 TH/MM3 (150-450); RED CELL DISTRIBUTION WIDTH 14.2 % (11.6-17.2); WHITE BLOOD COUNT 4.9 TH/MM3 (4.0-11.0)
[2016-11-22] MEDS: FREE WATER G-TUBE SCH ×4 (06:00→17:40)
[2016-11-22 06:04] LABS: HEMO FLAGS AUTO DIFF
[2016-11-22 06:10] LABS: APTT (PATIENT) 26.8 SEC (24.3-30.1); PROTHROMBIN TIME - PATIENT 11.4 SEC (9.8-11.6)
[2016-11-22 06:20] LABS: ANION GAP 6 MEQ/L (5-15); AST (GOT) 5 U/L (15-37); BICARBONATE 26.7 MEQ/L (21.0-32.0); BLOOD UREA NITROGEN 12 MG/DL (7-18); CHLORIDE 103 MEQ/L (98-107); GLOMERULAR FILTRATION RATE 245 ML/MIN (>89); MAGNESIUM 1.8 MG/DL (1.5-2.5); POTASSIUM 3.6 MEQ/L (3.5-5.1); SODIUM (NA) 136 MEQ/L (136-145)
[2016-11-22 06:28] LABS: ALKALINE PHOSPHATASE 60 U/L (45-117); ALT (GPT) 11 U/L (12-78); TOTAL BILIRUBIN ADULT 0.2 MG/DL (0.2-1.0)
[2016-11-22 07:10] LABS: PLATELET ESTIMATE SMEAR HIGH (NORMAL); PLATELET MORPHOLOGY NORMAL (NORMAL); SCAN/DIFF AUTO DIFF CONFIRMED
[2016-11-22] MEDS: CHLORHEXIDINE 0.12% (ORAL KIT) 15 ML CUP MT SCH ×2 (08:15→20:51)
[2016-11-22] MEDS: ARTIFICIAL TEARS OPTH SOLN 15 ML BTL EACH EYE SCH ×3 (09:00→17:40)
[2016-11-22] MEDS: BACITRACIN TOP OINT 15 GM TUBE TOPICAL SCH ×2 (09:00→20:51)
[2016-11-22] MEDS: BENEPROTEIN POWDER 1 PACK G-TUBE SCH ×6 (09:00→17:40)
[2016-11-22] MEDS: LANSOPRAZOLE SOLUTAB 30 MG TAB NG SCH (09:02)
[2016-11-22] MEDS: LACTOBACILLUS ACIDOPHILUS TAB PO SCH ×3 (09:02→17:47)
[2016-11-22] MEDS: LEVOFLOXACIN 750 MG TAB PO SCH (09:02)
[2016-11-22] MEDS: levETIRAcetam 500 MG/5 ML UDC NG SCH ×2 (09:02→20:51)
[2016-11-22] MEDS: SODIUM CHLORIDE 0.9% FLUSH 10 ML FLUSH IV FLUSH SCH ×2 (09:02→20:51)
[2016-11-22] MEDS: FUROSEMIDE 40 MG/5 ML UNIT DOSE CUP NG SCH (09:02)
--- NOTE | 2016-11-22 17:46 | HHI.CCPN ---
Subjective Remarks/Hospital Course 10/07: 56-year-old male presents with intracranial bleed. Patient was transferred from [facility]. As per the paramedics and the nurse who assisted the patient said that patient earlier this morning was coming down the stairs when he started feeling some left-sided weakness and numbness. He called 911 and by the time EMS arrived they detected some deficit and called a stroke alert. Patient was taken to [facility]. When patient arrived his mental status started to decline and he was intubated emergently in the ER. A CAT scan of the head showed subarachnoid and subdural bleed. He was taking emergently to an angio suite for coiling of the aneurysm and later on to OR for subdural hematoma evacuation. 10/08: Remains sedated, orally intubated on mechanical ventilation. Arouses off sedation and following commands with both upper extremities earlier. Ventriculostomy in place. ICP 7, CPP mid 80s. 10/09: Remains sedated, orally intubated on mechanical ventilation. Arouses off sedation and follows commands with both upper extremities. Ventriculostomy in place. 10/10: Remains sedated, orally intubated on mechanical ventilation. Arouses off sedation and follows commands and both upper extremities. Ventriculostomy in place. ICP 5. Failed C Pap trial yesterday. 10/11: Extubated on 10/10, tolerating well. Awake and alert. Appears confused, moving all 4 extremities. Ventriculostomy discontinued today by neurosurgery 10/13: Patient has developed severe vasospasm at the left MCA territory on TCD's that was treated with IV route verapamil 10/14: patient extubated overnight. was originally following commands and neuro intact. TCDs this morning with increase LIs over yesterday, particularly Left MCA territory. On my evaluation early this morning, patient was aphasic, not moving the right side of his body, not following commands. SBP 140s at that time. net 2L negative/24h and uop almost 1L/hr at the time. I immediately bolused with 2L NS iv, placed arterial and central lines, started phenylephrine , increased SBP to goal 200 - 220 mmHg. called interventional neuroradiology and accompanied patient down personally to IR for IA verapamil again. I remained with the patient managing his hemodynamics down in IR and providing anxiolysis IV. I accompanied patient back up to [facility] where patient again was neuro intact and following commands. Sodium downtrending to 135 and urine studies and serum osms suggestive of urine sodium losses and high uop. added Florinef to mitigate sodium losses, and increased mivf to 500cc/hr to maintain euvolemia. later in the day patient decompensated requiring intubation for hyoxemia, cxr suggestive of pulmonary edema. 2d echo with evidence of EF 40%, septal hypokinesis, moderate MR. On levo, vaso, phenylephrine. difficult to get to goal SBP 200 mmHg, likely due to myocardial dysfunction. decreased goal to 180 - 200 mmHg to balance cardiac vs. neurologic goals. 10/15 Patient was discussed with Dr. Sullivan at shift change. Isuprel was initiated in effort to improve cardiac output as dobutamine not available and concerned with use of milrinone given long half life. Systolic blood pressure was relatively stable with perhaps some modest improvement from 170s to 180s for several hours after initiation. Notified when patient became abruptly hypotensive despite vasopressin, levophed 20 mcg/min, Greyson-Synephrine 300 mcg/m. He was also hypoxemic with sats in 80s despite PCV with PEEP 8 and FiO2 100%, respiratory rate in the 30s. He had decreased breath sounds bilaterally and was concerned for air trapping so removed from mechanical ventilation and bagged without improvement. Placed patient back on mechanical ventilation and provide recruitment maneuvers and increased PEEP to 12 which resulted in improvement of sats to 88% to 92%. Ordered Flolan. Discontinued isuprel and initiated epinephrine. R radial art line would not draw blood . Performed u/s guided femoral artery stick to confirm hypoxemia on ABG given poor wave form on pulse ox and PaO2 was 58. Placed new L radial art line and this resulted in ~ 30 point increase in SBP relative to prior line but patient ultimately on vasopressin, levophed 30 micrograms per minute, Greyson-Synephrine 300 micrograms per minute, epinephrine 12 mcg/min and unable to maintain target pressure (SBP in 150s). Given calcium chloride. patient with shaking movements all extremities, pupils 2mm and sluggish, no eye deviation. Rigors seemed most likely but unable to emergently rule out seizures so loaded with fosphenytoin to avoid secondary injury from seizure activity. WBC increasing and concern for HCAP so pancultured and placed on cefepime, vancomycin, azithromycin. Hydrocortisone 100 mg IV every 8 hours initiated due to concern for septic shock in a patient who has been refractory to all other above measures. Patient is to hemodynamically unstable and hypoxic for transport for neurologic imaging. Urine output has declined to 180-200 ML's per hour. Back off maintenance IV fluids to 200 ML's per hour. Bedside echo demonstrates decreased LV function with normal RV contractility and collapsible IVC suggesting ongoing maintenance fluid administration is appropriate. 10/15 additional visit: continued to deteriorate throughout the day. Seen multiple times. hypoxic on 100% fio2, flolan. required nimbex drip to maintain. repeat bedside critical care ultrasound still demonstrates severe LV dysfunction , decompressed RV, IVC more dilated than previous echo overnight, however still with respiratory variation. femoral arterial line placed with better waveform and higher pressure (likely SVR too high to allow accurate measurement of radial pressure). Pulse contour analysis without stroke volume variation, CI 3.6. SV 52mL. trialed additional albumin without improvement in hemodynamics. uop slower than before, but still significant salt wasting in the urine- sodium dropped to 125 from 132 despite already on 3% nacl infusion and aggressive sodium replacements. forced to give 23% nacl and salt tabs. declining clinically despite maximal therapy. 10/16: continues to be maximally critically ill. LV dysfunction persists. starting to get volume overloaded, but given concern for ongoing cerebral vasospasm, unable to actively diurese patient. sodium wasting persists, but uop downtrending slightly. very hypokalemic today, likely due to steroids. remains intubated, sedated, paralyzed, on flolan. CXR today appears worse with worsening airspace disease. Lactate remains slightly elevated, confirming persistent shock. 10/17: Lung infiltrates dense bilaterally, reflected in shunting and problems with oxygenation. Developed vasospasm on TCDs and required angiogram and intra- arterial verapamil again today. 10/18: SBP 160 - 170 range. FiO2 0.55. BNP > 5000. Not tolerating attempts at maintaining higher BP due to worsening heart failure. Several episodes of vasospasm. Watch daily TCDs closely. Sputum no growth. 10/19: Tmax 99.8. Currently 99. Remains on 4 vasopressors and epoprostenol 10/20: Yesterday. Returned IR for intra-arterial calcium channel jose infusion for vasospasm. Transcranial Dopplers today Still pending. Remains on significant vasopressor support. 10/21: Good response to diuresis, check BNP. TCDs pending. Heart failure remains a major problem. 10/22: CVP 21 - 22, finger tips blue, digits pale white despite high dose milrinone dilation. Greyson and vaso much reduced. Will try diltiazem gtt for digital ischemia. Urine remains > 200/hr and proximal limbs are well perfused. This digital ischemia appears to be a local phenomenon ala Raynaud's. New subcutaneous emphysema right anterior chest wall. 10/23: Old CVL removed. Fingertips remain marginal, some necrotic despite diltiazem and milrinone treatment for digital ischemia. Cardiac output > 7 liters/min and urine copious, confirming good perfusion pressure and flow. This continues to be a local phenomenon of the digits ala Raynaud's. We are trying to wean vasopressors off but are required to maintaining a cerebral perfusion pressure suitable for the treatment of aneurysmal subarachnoid bleed. Frankly, the importance of brain function eclipses fingertips. 10/24: Afebrile. Well perfused except for index finger left hand, few tips fingers right. Arms and hands warmer with resolving circumferential edema. Diltiazem and milrinone gtt continue. Greyson to 10 mics/min. 10/25: Digits are warm and well perfused except left index and right 4th fingertips; demarcated and not viable. Dry. Diltiazem and milrinone infusions continue to help reverse digital ischemia. 10/26: Forced diuresis continues and BP remains nicely elevated. Hands and digits warm aside from left index and right 4th fingertips which have demarcated. 10/27: Good response to diuretics. Perfusion pressure and documented flow excellent. Continue to wean vent. 10/28: Start SBTs. Fluid balance back toward normal. 10/29: Tolerating SBTs. Lowering sedation. Edema resolving. 10/30: Tolerating tube feeds, will taper off TPN and remove central line. Continue diuretics. 10/31: net -3L over 24h. mental status at baseline. tolerating CPAP, but does not have the mental status to protect airway. will likely need trach/peg. placement will be a problem due to lack of funding. 11/01: no changes or improvements. discussed with yesterday and she "does not want any more setbacks" and would prefer trach versus trial of extubation. I agree with her assessment. plan for trach today. placement is still a significant problem. net -2L/24h. 11/02: wbc uptrending, febrile. antonio cultured, started empiric abx today. failed SBT overnight and placed back on rate. 11/03: Tolerating CPAP today, following commands. Low-grade fever cultures pending. WBC count normal today 11/04: Remains on TPs since yesterday. Neuro exam remains stable. Follows commands weakly. Na 152 11/05: Remains off vent for 48 hours now. Sitting up in stretcher chair today. Na improved to 149. remains weak but improving 11/06: Continues to tolerate TPs well. Neuro exam unchanged. Sodium 148 today. Continues to spike intermittent fever Tmax 102.7. 11/07: Continued fevers, no leukocytosis. 11/08: Stable for replacement of bone flap. 11/09: Getting a bit excessively diuresed, will decrease lasix and convert to PO. Fingertips and toes demarcating as expected. No immediate action required except for continued diltiazem therapy. Clearly a Raynaud's type digital ischemia as peripheral perfusion and urine output indicated excellent peripheral perfusion. 11/10: Tracks with eyes today, nods to questions. Failed swallow again. 11/11: Plan for PEG, GI consulted. Bone flap replacement on hold due to blood cultures and fever. 11/12: May get PEG today, Bone flap to be replaced coming week per Dr. Perry. Afebrile no white count 11/13: Neuro exam unchanged. Na was 150 yesterday, repeat CMP pending. Left flap remains sunken 11/14: emesis overnight with ? aspiration event. no increased O2 requirement, but fever to 102.5 today. recultured. no complaints from patient. 11/15: No changes. still low suspicion for infection. Awaiting ID clearance for bone flap replacement. also awaiting placement 11/16: Placed on full ventilator support overnight for acute hypoxemic respiratory failure due to mucous plugging. Mucomyst added. Not on any sedation. Chest x-ray back to baseline-no need a bronchoscopy at this time, but will do if there is recurrent plugging. Will check sputum culture, and trach site culture 11/17: Breathing comfortably on the vent, on CPAP now. Off all sedation. We'll attempt T piece yesterday. Sodium normal 11/18: Currently tolerating TP. Patient had a few episodes of nausea vomiting. KUB shows ileus. Overnight was started on Reglan IV and when necessary Zofran. We'll keep nothing by mouth until ileus resolved. 11/19: Back on vent rate due to poor spontaneous effort. Hgb down 2 gms - looks like dilution; follow closely. VS without change. Ileus has resolved. 11/20: ABIs normal with normal pressure. Inflow satisfactory to all limbs. GI tract working well. 11/21: Tmax 99.1. Positive BM from fecal containing device. Tolerating t piece 24 hours. Tube feeds are at goal. Okay for OR from ID standpoint Subjective 11/22 currently resting in bed in no acute distress. On TP since 48 hours. Tube feeds at goal. Objective Vital Signs Date Time Temp Pulse Resp B/P (MAP) Pulse Ox O2 Delivery O2 Flow Rate FiO2 11/22/16 16:00 98.6 86 24 112/75 (87) 100 11/22/16 08:15 T-piece 28 11/21/16 19:00 6.00 Intake and Output 11/22/16 11/22/16 11/23/16 08:00 16:00 00:00 Intake Total 1047 ml Output Total 1100 ml Balance -53 ml Result Diagram: 11/22/1652311/22/16523 Other Results Microbiology Date/Time Source Procedure Growth Status 11/15/16 05:20 Blood Peripheral Aerobic Blood Culture - Final NO GROWTH IN 5 DAYS Complete 11/15/16 05:20 Blood Peripheral Anaerobic Blood Culture - Final NO GROWTH IN 5 DAYS Complete 11/16/16 06:00 Sputum Endotracheal Gram Stain - Final Complete 11/16/16 06:00 Sputum Endotracheal Sputum Culture - Final HEAVY GROWTH NORMAL RESPIRATORY YOAN Complete 11/06/16 13:00 Urine Random Urine Urine Culture - Final <10,000 CFU/ML GRAM POSITIVE YOAN Complete 11/16/16 11:13 Wound Neck Gram Stain - Final Complete 11/16/16 11:13 Wound Neck Wound Culture - Final HEAVY GROWTH NORMAL SKIN YOAN... Complete Imaging Last Impressions Abdomen X-Ray 11/19/16599 Signed Impressions: Service Date/Time: Monday, November 19, 2016 02:44 - CONCLUSION: Unchanged bowel gas pattern potentially relating to an ileus. Santos Crockett Jr., MD Chest X-Ray 10/6/17 0600 Signed Impressions: Service Date/Time: Friday, November 18, 2016 05:04 - CONCLUSION: Unchanged bilateral pulmonary infiltrates. Santos Crockett Jr., MD Transcranial Doppler Study Complete 10/20/16 0600 Signed Impressions: Service Date/Time: October 07:54 - CONCLUSION: Slight interval elevation of flow velocity measurements and ratio on the left Yosvany Polk MD Liver Ultrasound 10/19/16 0000 Signed Impressions: Service Date/Time: Wednesday, October 19, 2016 11:20 - CONCLUSION: 1. Sludge filled gallbladder with thickened wall. 2. Moderate size bilateral pleural effusions and mild upper abdominal ascites. Santos Vazquez MD Cerebral Arteriogram 10/19/16 0000 Signed Impressions: Service Date/Time: Wednesday, October 19, 2016 12:47 - CONCLUSION: Uncomplicated cerebral arteriography with spasmolytic therapy as described in detail above. Yosvany Polk MD Head CT 10/17/16 0000 Signed Impressions: Service Date/Time: Monday, October 17, 2016 15:06 - CONCLUSION: Ventricles are slightly larger without ventriculostomy. Edema in the left hemisphere the brain herniating through the operative site. Remington Woodward MD FACR Infusion Non-thrombolysis 10/14/16 1103 Signed Impressions: Service Date/Time: Friday, October 14, 2016 10:21 - CONCLUSION: 1. Uncomplicated infusion for spasmolysis Harvey Morejon MD Neck CTA 10/07/16 0000 Signed Impressions: Service Date/Time: Friday, October 07, 2016 15:03 - CONCLUSION: 1. Mild carotid bulb atherosclerotic calcification bilaterally. However, no significant stenosis is present in either internal carotid artery. 2. Paranasal sinus mucoperiosteal thickening. 3. Please refer to brain CTA report for description of the intracranial findings. Yosvany Ramirez MD Head CTA 10/07/16 0000 Signed Impressions: Service Date/Time: Friday, October 07, 2016 15:03 - CONCLUSION: 1. 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 2. Large left subdural hematoma measuring 1.3 cm in depth with a significant, 1.6 cm left to right subfalcine shift. Joni Shelton MD Objective Remarks GENERAL: 56-year-old male. On TP HEAD: Status post left craniectomy. Left flap sunken, Incision healing well EYES: About 3 mm bilaterally and reactive NECK: Trachea midline. 8.0 Shiley cuffed trach, minimally elevated remains surrounding the trach site CARDIOVASCULAR: normal rate, regular rhythm. Sinus by tele. RESPIRATORY: TP. Bilateral course rhonchi, good air movement. GASTROINTESTINAL: Abdomen soft, non-tender, nondistended. BS active. No guarding. MUSCULOSKELETAL: Ischemic changes worst to left index finger tip, right 4th fingertip, and majority of R toes. Demarcating, dry. NEURO EXAM: Opens eyes and follows command, right UE weaker than left, follows commands x4. Procedures 10/13 Four-vessel cerebral angiography with verapamil treatment of vasospasm A/P Assessment and Plan Neuro/Psych Status post left frontotemporal parietal craniectomy 10/08 for evacuation subdural hematoma/duraplasty Left subdural hematoma - 1.3 cm with 1.6 shift left to right Subarachnoid hemorrhage Alvarado and Rodriguez 5, Carroll grade 4 - left P-comm status post 4 coiling 10/08 - Nimodipine completed 21 days. Initiated 10/13. - Levetiracetam 500 mg per tube q12h. - 10/13 and 10/14 and 10/17) 10/19 left MCA territory vasospasm, status post successful verapamil treatment by IR with 20 mg verapamil - 10/17 CT brain - less hemisphere edema with herniation through left craniotomy site, now improved. - Dr. Perry/neurosurgery. Plan to replace bone flap okayed by infectious disease. - Liquid oxycodone 10 mg every 4 hours, hydromorphone 0.5 mg every 4 hours when necessary pain Respiratory: Acute hypoxic Respiratory failure secondary to mucous plugging Possible healthcare associated pneumonia ARDS- resolved Noncardiogenic/neurogenic pulmonary edema- resolved. Chronic respiratory failure requiring tracheostomy -- Nebs, HOB at 30 degrees. TP today at 40%/6 L. -- Albuterol/troponin every 6 hours with albuterol aerosols every 2 hours for Dyspnea. -- Follow-up on sputum culture -- s/p Trach Dr. Sullivan/Dr. Collazo 11/01 #8 Bet[facility] Cardiovascular: Septic and cardiogenic shock- resolved. LV dysfunction secondary to SAH - persistent, now resolved Elevated troponin- secondary to SAH, unlikely to be ACS. - resolved. Pulmonary hypertension Continue diuresis. free water 200mL per tube q6h. Echocardiogram 10/14/16 revealed EF 40-45%. Septal hypokinesis. Moderate MR. Severe pulmonary hypertension with pulmonary artery pressures estimated 61 mmHg Limited Echo 11/06: LVEF 60-65%, Trivial mitral and tricuspid regurgitation, No vegetations noted. Continue diltiazem's 90 mg by mouth every 6 hours Renal: Cerebral Salt Wasting/SIADH-resolved now hypernatremic Strict I/Os. See FEN below. Creatinine currently within normal limits -> resolved. Monitor urine output FEN/GI: Ileus Hypokalemia Elevated transaminases Hyperammonemia - Currently on Glucerna 1.5 goal 60 cc an hour - free water per tube 3 mL every 6 hours - ICU electrolyte protocol. aggressively replace potassium losses. - Lansoprazole 30 mg by tube daily for GI prophylaxis - Continue bowel regimen - Continue PEG feeding. s/p PEG 11/12/16 Heme/ID: Septic Shock- resolved. Possible HCAP New Fever, leukocytosis, staph epi bacteremia - limited Echo to evaluate vegetation-neg. ID following - Follow-up on sputum culture, trach site culture - Digital Ischemia with necrosis, conservative management - s/p Diltiazem and milrinone infusions - Digits have demarcated, allow auto amputation. Cardizem PO currently and 90 mg every 6 hours (for digital ischemia, Raynaud's) Continue bacitracin twice a day to affected areas Pertinent cultures 10/15 - blood cultures - 1 out of 4 anaerobic gram-negative cocci possibly Veillonella 10/15 - sputum - beta strep not A, strep species 10/19 cultures NG 10/21/ bottles blood cultures coag negative staph. Culture 11/01. coag neg stah / bottles 11/16 sputum in trach site cultures negative s/p levofloxacin x 7 days end 11/15/16 Fluconazole discontinued per infectious disease Endocrine: Presumed Adrenal Insufficiency Discontinued fludrocortisone 10/18. Sliding-scale insulin with NovoLog -Accu-Cheks every 4 hours to maintain euglycemia MSK: Prophylaxis: GI Prophylaxis - lansoprazole DVT Prophylaxis-- SCDs, heparin subcutaneous currently on hold for possible OR Lines: - 10/14 right SC TLC, removed 10/22 - 10/14 right radial art line, removed 10/14 - 9/2 left radial art line, removed 10/16 - 10/22 left groin triple lumen placed, d/c 10/30 - d/c ramires. Level II follow-up Cyrus Boland MD Nov 22, 2016 17:46
[2016-11-22] MEDS: MELATONIN 5 MG TAB PO SCH (20:51)
[2016-11-22] MEDS: RESP: ALBUTEROL 2.5 MG/3 ML NEB (PRN) INH (22:09)
[2016-11-23] VITALS (12 sets, daily range): BP systolic 110–137; BP diastolic 63–76; PULSE 76–92; RESP 20–28; TEMP 98–98.8; O2SAT 100
[2016-11-23] MEDS: DILTIAZEM HCL 90 MG TAB PO SCH ×4 (00:45→17:30)
[2016-11-23] MEDS: METOCLOPRAMIDE HCL 10 MG/2 ML VIAL IV PUSH SCH ×3 (03:41→17:30)
[2016-11-23] MEDS: CHLORHEXIDINE GLUCONATE 2 % 1 PACK (2 CLOTHS) TOP SCH (04:00)
[2016-11-23] MEDS: FREE WATER G-TUBE SCH ×4 (05:10→17:31)
[2016-11-23] MEDS: CHLORHEXIDINE 0.12% (ORAL KIT) 15 ML CUP MT SCH ×2 (08:00→20:00)
[2016-11-23] MEDS: BENEPROTEIN POWDER 1 PACK G-TUBE SCH ×6 (08:15→17:31)
[2016-11-23] MEDS: BACITRACIN TOP OINT 15 GM TUBE TOPICAL SCH ×2 (09:15→20:12)
[2016-11-23] MEDS: ARTIFICIAL TEARS OPTH SOLN 15 ML BTL EACH EYE SCH ×3 (09:15→17:31)
[2016-11-23] MEDS: FUROSEMIDE 40 MG/5 ML UNIT DOSE CUP NG SCH (09:16)
[2016-11-23] MEDS: SODIUM CHLORIDE 0.9% FLUSH 10 ML FLUSH IV FLUSH SCH ×2 (09:16→19:51)
[2016-11-23] MEDS: LEVOFLOXACIN 750 MG TAB PO SCH (09:17)
[2016-11-23] MEDS: LACTOBACILLUS ACIDOPHILUS TAB PO SCH ×3 (09:17→17:30)
[2016-11-23] MEDS: LANSOPRAZOLE SOLUTAB 30 MG TAB NG SCH (09:17)
[2016-11-23] MEDS: levETIRAcetam 500 MG/5 ML UDC NG SCH ×2 (09:19→19:51)
--- NOTE | 2016-11-23 13:43 | HHI.CCPN ---
Subjective Remarks/Hospital Course 10/07: 56-year-old male presents with intracranial bleed. Patient was transferred from [facility] at [facility]. As per the paramedics and the nurse who assisted the patient said that patient earlier this morning was coming down the stairs when he started feeling some left-sided weakness and numbness. He called 911 and by the time EMS arrived they detected some deficit and called a stroke alert. Patient was taken to [facility]. When patient arrived his mental status started to decline and he was intubated emergently in the ER. A CAT scan of the head showed subarachnoid and subdural bleed. He was taking emergently to an angio suite for coiling of the aneurysm and later on to OR for subdural hematoma evacuation. 10/08: Remains sedated, orally intubated on mechanical ventilation. Arouses off sedation and following commands with both upper extremities earlier. Ventriculostomy in place. ICP 7, CPP mid 80s. 10/09: Remains sedated, orally intubated on mechanical ventilation. Arouses off sedation and follows commands with both upper extremities. Ventriculostomy in place. 10/10: Remains sedated, orally intubated on mechanical ventilation. Arouses off sedation and follows commands and both upper extremities. Ventriculostomy in place. ICP 5. Failed C Pap trial yesterday. 10/11: Extubated on 10/10, tolerating well. Awake and alert. Appears confused, moving all 4 extremities. Ventriculostomy discontinued today by neurosurgery 10/13: Patient has developed severe vasospasm at the left MCA territory on TCD's that was treated with IV route verapamil 10/14: patient extubated overnight. was originally following commands and neuro intact. TCDs this morning with increase LIs over yesterday, particularly Left MCA territory. On my evaluation early this morning, patient was aphasic, not moving the right side of his body, not following commands. SBP 140s at that time. net 2L negative/24h and uop almost 1L/hr at the time. I immediately bolused with 2L NS iv, placed arterial and central lines, started phenylephrine , increased SBP to goal 200 - 220 mmHg. called interventional neuroradiology and accompanied patient down personally to IR for IA verapamil again. I remained with the patient managing his hemodynamics down in IR and providing anxiolysis IV. I accompanied patient back up to [facility] where patient again was neuro intact and following commands. Sodium downtrending to 135 and urine studies and serum osms suggestive of urine sodium losses and high uop. added Florinef to mitigate sodium losses, and increased mivf to 500cc/hr to maintain euvolemia. later in the day patient decompensated requiring intubation for hyoxemia, cxr suggestive of pulmonary edema. 2d echo with evidence of EF 40%, septal hypokinesis, moderate MR. On levo, vaso, phenylephrine. difficult to get to goal SBP 200 mmHg, likely due to myocardial dysfunction. decreased goal to 180 - 200 mmHg to balance cardiac vs. neurologic goals. 10/15 Patient was discussed with Dr. Sullivan at shift change. Isuprel was initiated in effort to improve cardiac output as dobutamine not available and concerned with use of milrinone given long half life. Systolic blood pressure was relatively stable with perhaps some modest improvement from 170s to 180s for several hours after initiation. Notified when patient became abruptly hypotensive despite vasopressin, levophed 20 mcg/min, Greyson-Synephrine 300 mcg/m. He was also hypoxemic with sats in 80s despite PCV with PEEP 8 and FiO2 100%, respiratory rate in the 30s. He had decreased breath sounds bilaterally and was concerned for air trapping so removed from mechanical ventilation and bagged without improvement. Placed patient back on mechanical ventilation and provide recruitment maneuvers and increased PEEP to 12 which resulted in improvement of sats to 88% to 92%. Ordered Flolan. Discontinued isuprel and initiated epinephrine. R radial art line would not draw blood . Performed u/s guided femoral artery stick to confirm hypoxemia on ABG given poor wave form on pulse ox and PaO2 was 58. Placed new L radial art line and this resulted in ~ 30 point increase in SBP relative to prior line but patient ultimately on vasopressin, levophed 30 micrograms per minute, Greyson-Synephrine 300 micrograms per minute, epinephrine 12 mcg/min and unable to maintain target pressure (SBP in 150s). Given calcium chloride. patient with shaking movements all extremities, pupils 2mm and sluggish, no eye deviation. Rigors seemed most likely but unable to emergently rule out seizures so loaded with fosphenytoin to avoid secondary injury from seizure activity. WBC increasing and concern for HCAP so pancultured and placed on cefepime, vancomycin, azithromycin. Hydrocortisone 100 mg IV every 8 hours initiated due to concern for septic shock in a patient who has been refractory to all other above measures. Patient is to hemodynamically unstable and hypoxic for transport for neurologic imaging. Urine output has declined to 180-200 ML's per hour. Back off maintenance IV fluids to 200 ML's per hour. Bedside echo demonstrates decreased LV function with normal RV contractility and collapsible IVC suggesting ongoing maintenance fluid administration is appropriate. 10/15 additional visit: continued to deteriorate throughout the day. Seen multiple times. hypoxic on 100% fio2, flolan. required nimbex drip to maintain. repeat bedside critical care ultrasound still demonstrates severe LV dysfunction , decompressed RV, IVC more dilated than previous echo overnight, however still with respiratory variation. femoral arterial line placed with better waveform and higher pressure (likely SVR too high to allow accurate measurement of radial pressure). Pulse contour analysis without stroke volume variation, CI 3.6. SV 52mL. trialed additional albumin without improvement in hemodynamics. uop slower than before, but still significant salt wasting in the urine- sodium dropped to 125 from 132 despite already on 3% nacl infusion and aggressive sodium replacements. forced to give 23% nacl and salt tabs. declining clinically despite maximal therapy. 10/16: continues to be maximally critically ill. LV dysfunction persists. starting to get volume overloaded, but given concern for ongoing cerebral vasospasm, unable to actively diurese patient. sodium wasting persists, but uop downtrending slightly. very hypokalemic today, likely due to steroids. remains intubated, sedated, paralyzed, on flolan. CXR today appears worse with worsening airspace disease. Lactate remains slightly elevated, confirming persistent shock. 10/17: Lung infiltrates dense bilaterally, reflected in shunting and problems with oxygenation. Developed vasospasm on TCDs and required angiogram and intra- arterial verapamil again today. 10/18: SBP 160 - 170 range. FiO2 0.55. BNP > 5000. Not tolerating attempts at maintaining higher BP due to worsening heart failure. Several episodes of vasospasm. Watch daily TCDs closely. Sputum no growth. 10/19: Tmax 99.8. Currently 99. Remains on 4 vasopressors and epoprostenol 10/20: Yesterday. Returned IR for intra-arterial calcium channel jose infusion for vasospasm. Transcranial Dopplers today Still pending. Remains on significant vasopressor support. 10/21: Good response to diuresis, check BNP. TCDs pending. Heart failure remains a major problem. 10/22: CVP 21 - 22, finger tips blue, digits pale white despite high dose milrinone dilation. Greyson and vaso much reduced. Will try diltiazem gtt for digital ischemia. Urine remains > 200/hr and proximal limbs are well perfused. This digital ischemia appears to be a local phenomenon ala Raynaud's. New subcutaneous emphysema right anterior chest wall. 10/23: Old CVL removed. Fingertips remain marginal, some necrotic despite diltiazem and milrinone treatment for digital ischemia. Cardiac output > 7 liters/min and urine copious, confirming good perfusion pressure and flow. This continues to be a local phenomenon of the digits ala Raynaud's. We are trying to wean vasopressors off but are required to maintaining a cerebral perfusion pressure suitable for the treatment of aneurysmal subarachnoid bleed. Frankly, the importance of brain function eclipses fingertips. 10/24: Afebrile. Well perfused except for index finger left hand, few tips fingers right. Arms and hands warmer with resolving circumferential edema. Diltiazem and milrinone gtt continue. Greyson to 10 mics/min. 10/25: Digits are warm and well perfused except left index and right 4th fingertips; demarcated and not viable. Dry. Diltiazem and milrinone infusions continue to help reverse digital ischemia. 10/26: Forced diuresis continues and BP remains nicely elevated. Hands and digits warm aside from left index and right 4th fingertips which have demarcated. 10/27: Good response to diuretics. Perfusion pressure and documented flow excellent. Continue to wean vent. 10/28: Start SBTs. Fluid balance back toward normal. 10/29: Tolerating SBTs. Lowering sedation. Edema resolving. 10/30: Tolerating tube feeds, will taper off TPN and remove central line. Continue diuretics. 10/31: net -3L over 24h. mental status at baseline. tolerating CPAP, but does not have the mental status to protect airway. will likely need trach/peg. placement will be a problem due to lack of funding. 11/01: no changes or improvements. discussed with yesterday and she "does not want any more setbacks" and would prefer trach versus trial of extubation. I agree with her assessment. plan for trach today. placement is still a significant problem. net -2L/24h. 11/02: wbc uptrending, febrile. antonio cultured, started empiric abx today. failed SBT overnight and placed back on rate. 11/03: Tolerating CPAP today, following commands. Low-grade fever cultures pending. WBC count normal today 11/04: Remains on TPs since yesterday. Neuro exam remains stable. Follows commands weakly. Na 152 11/05: Remains off vent for 48 hours now. Sitting up in stretcher chair today. Na improved to 149. remains weak but improving 11/06: Continues to tolerate TPs well. Neuro exam unchanged. Sodium 148 today. Continues to spike intermittent fever Tmax 102.7. 11/07: Continued fevers, no leukocytosis. 11/08: Stable for replacement of bone flap. 11/09: Getting a bit excessively diuresed, will decrease lasix and convert to PO. Fingertips and toes demarcating as expected. No immediate action required except for continued diltiazem therapy. Clearly a Raynaud's type digital ischemia as peripheral perfusion and urine output indicated excellent peripheral perfusion. 11/10: Tracks with eyes today, nods to questions. Failed swallow again. 11/11: Plan for PEG, GI consulted. Bone flap replacement on hold due to blood cultures and fever. 11/12: May get PEG today, Bone flap to be replaced coming week per Dr. Perry. Afebrile no white count 11/13: Neuro exam unchanged. Na was 150 yesterday, repeat CMP pending. Left flap remains sunken 11/14: emesis overnight with ? aspiration event. no increased O2 requirement, but fever to 102.5 today. recultured. no complaints from patient. 11/15: No changes. still low suspicion for infection. Awaiting ID clearance for bone flap replacement. also awaiting placement 11/16: Placed on full ventilator support overnight for acute hypoxemic respiratory failure due to mucous plugging. Mucomyst added. Not on any sedation. Chest x-ray back to baseline-no need a bronchoscopy at this time, but will do if there is recurrent plugging. Will check sputum culture, and trach site culture 11/17: Breathing comfortably on the vent, on CPAP now. Off all sedation. We'll attempt T piece yesterday. Sodium normal 11/18: Currently tolerating TP. Patient had a few episodes of nausea vomiting. KUB shows ileus. Overnight was started on Reglan IV and when necessary Zofran. We'll keep nothing by mouth until ileus resolved. 11/19: Back on vent rate due to poor spontaneous effort. Hgb down 2 gms - looks like dilution; follow closely. VS without change. Ileus has resolved. 11/20: ABIs normal with normal pressure. Inflow satisfactory to all limbs. GI tract working well. 11/21: Tmax 99.1. Positive BM from fecal containing device. Tolerating t piece 24 hours. Tube feeds are at goal. Okay for OR from ID standpoint 11/22 currently resting in bed in no acute distress. On TP since 48 hours. Tube feeds at goal. Subjective 11/23: Resting in bed on T piece and 72 hours. Tube feeding at goals. Cleared from ID for plastics Objective Vital Signs Date Time Temp Pulse Resp B/P (MAP) Pulse Ox O2 Delivery O2 Flow Rate FiO2 11/23/16 12:00 87 11/23/16 12:00 98.0 22 114/76 (89) 100 11/23/16 08:53 T-piece 5.00 28 Intake and Output 11/23/16 11/23/16 11/24/16 08:00 16:00 00:00 Intake Total 1037 ml Output Total 550 ml Balance 487 ml Result Diagram: 11/22/1652311/22/16523 Other Results Microbiology Date/Time Source Procedure Growth Status 11/15/16 05:20 Blood Peripheral Aerobic Blood Culture - Final NO GROWTH IN 5 DAYS Complete 11/15/16 05:20 Blood Peripheral Anaerobic Blood Culture - Final NO GROWTH IN 5 DAYS Complete 11/16/16 06:00 Sputum Endotracheal Gram Stain - Final Complete 11/16/16 06:00 Sputum Endotracheal Sputum Culture - Final HEAVY GROWTH NORMAL RESPIRATORY YOAN Complete 11/06/16 13:00 Urine Random Urine Urine Culture - Final <10,000 CFU/ML GRAM POSITIVE YOAN Complete 11/16/16 11:13 Wound Neck Gram Stain - Final Complete 11/16/16 11:13 Wound Neck Wound Culture - Final HEAVY GROWTH NORMAL SKIN YOAN... Complete Imaging Last Impressions Abdomen X-Ray 11/19/16 0600 Signed Impressions: Service Date/Time: Monday, November 19, 2016 02:44 - CONCLUSION: Unchanged bowel gas pattern potentially relating to an ileus. Santos Crockett Jr., MD Chest X-Ray 11/18/16 0600 Signed Impressions: Service Date/Time: Friday, November 18, 2016 05:04 - CONCLUSION: Unchanged bilateral pulmonary infiltrates. Santos Crockett Jr., MD Transcranial Doppler Study Complete 10/20/16 0600 Signed Impressions: Service Date/Time: October 07:54 - CONCLUSION: Slight interval elevation of flow velocity measurements and ratio on the left Yosvany Polk MD Liver Ultrasound 10/19/16 0000 Signed Impressions: Service Date/Time: Wednesday, October 19, 2016 11:20 - CONCLUSION: 1. Sludge filled gallbladder with thickened wall. 2. Moderate size bilateral pleural effusions and mild upper abdominal ascites. Santos Vazquez MD Cerebral Arteriogram 10/19/16 0000 Signed Impressions: Service Date/Time: Wednesday, October 19, 2016 12:47 - CONCLUSION: Uncomplicated cerebral arteriography with spasmolytic therapy as described in detail above. Yosvany Polk MD Head CT 10/17/16 0000 Signed Impressions: Service Date/Time: Monday, October 17, 2016 15:06 - CONCLUSION: Ventricles are slightly larger without ventriculostomy. Edema in the left hemisphere the brain herniating through the operative site. Remington Woodward MD FACR Infusion Non-thrombolysis 10/14/16 1103 Signed Impressions: Service Date/Time: Friday, October 14, 2016 10:21 - CONCLUSION: 1. Uncomplicated infusion for spasmolysis Harvey Morejon MD Neck CTA 10/07/16 0000 Signed Impressions: Service Date/Time: Friday, October 07, 2016 15:03 - CONCLUSION: 1. Mild carotid bulb atherosclerotic calcification bilaterally. However, no significant stenosis is present in either internal carotid artery. 2. Paranasal sinus mucoperiosteal thickening. 3. Please refer to brain CTA report for description of the intracranial findings. Yosvany aRmirez MD Head CTA 10/07/16 0000 Signed Impressions: Service Date/Time: Friday, October 07, 2016 15:03 - CONCLUSION: 1. 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 2. Large left subdural hematoma measuring 1.3 cm in depth with a significant, 1.6 cm left to right subfalcine shift. Joni Shelton MD Objective Remarks GENERAL: 56-year-old male. On TP HEAD: Status post left craniectomy. Left flap sunken, Incision healing well EYES: About 3 mm bilaterally and reactive NECK: Trachea midline. 8.0 Shiley cuffed trach, minimally elevated remains surrounding the trach site CARDIOVASCULAR: RRR. S1, S2 no S4. RESPIRATORY: TP. Essentially clear to auscultation without wheezes rales or rhonchi GASTROINTESTINAL: Abdomen soft, non-tender, nondistended. BS active. No guarding. MUSCULOSKELETAL: Ischemic changes worst to left index finger tip, right 4th fingertip, and majority of R toes. Demarcating, dry. NEURO EXAM: Opens eyes and follows command, right UE weaker than left, follows commands x4. Procedures 10/13 Four-vessel cerebral angiography with verapamil treatment of vasospasm A/P Assessment and Plan Neuro/Psych Status post left frontotemporal parietal craniectomy 10/08 for evacuation subdural hematoma/duraplasty Left subdural hematoma - 1.3 cm with 1.6 shift left to right Subarachnoid hemorrhage Alvarado and Rodriguez 5, Carroll grade 4 - left P-comm status post 4 coiling 10/08 - Nimodipine completed 21 days. Initiated 10/13. - Levetiracetam 500 mg per tube q12h. - 10/13 and 10/14 and 10/17) 10/19 left MCA territory vasospasm, status post successful verapamil treatment by IR with 20 mg verapamil - 10/17 CT brain - less hemisphere edema with herniation through left craniotomy site, now improved. - Dr. Perry/neurosurgery. Plan to replace bone flap okayed by infectious disease. - Liquid oxycodone 10 mg every 4 hours, hydromorphone 0.5 mg every 4 hours when necessary pain Respiratory: Acute hypoxic Respiratory failure secondary to mucous plugging Possible healthcare associated pneumonia ARDS- resolved Noncardiogenic/neurogenic pulmonary edema- resolved. Chronic respiratory failure requiring tracheostomy -- Nebs, HOB at 30 degrees. TP today at 40%/6 L. -- Albuterol/troponin every 6 hours with albuterol aerosols every 2 hours for Dyspnea. -- Follow-up on sputum culture -- s/p Trach Dr. Sullivan/Dr. Collazo 11/01 #8 Shiley Cardiovascular: Septic and cardiogenic shock- resolved. LV dysfunction secondary to SAH - persistent, now resolved Elevated troponin- secondary to SAH, unlikely to be ACS. - resolved. Pulmonary hypertension Continue diuresis. free water 200mL per tube q6h. Echocardiogram 10/14/16 revealed EF 40-45%. Septal hypokinesis. Moderate MR. Severe pulmonary hypertension with pulmonary artery pressures estimated 61 mmHg Limited Echo 11/06: LVEF 60-65%, Trivial mitral and tricuspid regurgitation, No vegetations noted. Continue diltiazem's 90 mg by mouth every 6 hours Renal: Cerebral Salt Wasting/SIADH-resolved now hypernatremic Strict I/Os. See FEN below. Creatinine currently within normal limits -> resolved. Monitor urine output FEN/GI: Ileus Hypokalemia Elevated transaminases Hyperammonemia - Currently on Glucerna 1.5 goal 60 cc an hour - free water per tube 3 mL every 6 hours - ICU electrolyte protocol. aggressively replace potassium losses. - Lansoprazole 30 mg by tube daily for GI prophylaxis - Continue bowel regimen - Continue PEG feeding. s/p PEG 11/12/16 Heme/ID: Septic Shock- resolved. Possible HCAP New Fever, leukocytosis, staph epi bacteremia - limited Echo to evaluate vegetation-neg. ID following - Follow-up on sputum culture, trach site culture - Digital Ischemia with necrosis, conservative management - s/p Diltiazem and milrinone infusions - Digits have demarcated, allow auto amputation. Cardizem PO currently and 90 mg every 6 hours (for digital ischemia, Raynaud's) Continue bacitracin twice a day to affected areas Pertinent cultures 10/15 - blood cultures - 1 out of 4 anaerobic gram-negative cocci possibly Veillonella 10/15 - sputum - beta strep not A, strep species 10/19 cultures NG 10/21 02/16 bottles blood cultures coag negative staph. Culture 11/01. coag neg stah 03/19 bottles 11/16 sputum in trach site cultures negative s/p levofloxacin x 7 days end 11/15/16 Fluconazole discontinued per infectious disease Endocrine: Presumed Adrenal Insufficiency Discontinued fludrocortisone 10/18. Sliding-scale insulin with NovoLog -Accu-Cheks every 4 hours to maintain euglycemia MSK: PT evaluate and treat Prophylaxis: GI Prophylaxis - lansoprazole DVT Prophylaxis-- SCDs, heparin subcutaneous currently on hold for possible OR Lines: - 10/14 right SC TLC, removed 10/22 - 10/14 right radial art line, removed 10/14 - 10/15 left radial art line, removed 10/16 - 10/22 left groin triple lumen placed, d/c 10/30 - d/c ramires. Level II follow-up Patient is stable from a critical care medicine standpoint. We'll assign care to hospitalist in a.m. 11/24. Ordered, pulmonology consulted for tracheostomy management Cyrus Boland MD Nov 23, 2016 13:43
--- NOTE | 2016-11-23 14:35 | HHI.IDPN ---
Subjective Subjective Remarks Patient is a 56-year-old male, initially admitted at [facility] after he developed acute onset of left-sided weakness and numbness. In [facility] emergency room his mental status deteriorated, and he required intubation. CT of the head showed subarachnoid bleed. He was transferred to [facility] for neurosurgical evaluation and treatment. Patient underwent angiogram and coiling of his aneurysm. He also underwent emergency surgery and had left frontal temporal parietal decompressive craniectomy, duraplasty, and evacuation of a subdural hematoma. He had a ezio hole and the ventriculostomy placement. His hospitalization was complicated by significant vasospasm of his cerebral arteries, and he had multiple angiogram and treatment of the vasospasm. He also had problem with significant LV dysfunction in both volume overload. His had hyponatremia that has been treated and corrected. He initially started having fevers and some clinical deterioration as far as infection around the first week of October. He had a sputum culture that had pneumococcus, beta- hemolytic strep and Haemophilus. He had one out of 2 blood culture that had anaerobic gram-negative cocci. He was on antibiotics up until October 23. Patient also required significant amount of pressors to maintain an adequate blood pressure to ensure cerebral perfusion. 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 Patient eventually underwent tracheostomy for his continued respiratory requirement, and had this procedure done November 01. Patient currently has been doing quite well and not requiring ventilatory support, and on T piece. Starting November 02 he started having fevers again as well as increased WBC. Repeat cultures at that time grew 2 blood cultures that had coag-negative staph. His central lines have been removed. Patient also has had liquid stool, but C. difficile is negative. Urinalysis done was unremarkable. Patient was started back on antibiotics on November 02 and has been on cefepime and IV vancomycin. He continues to have fevers. His WBC has been down to normal. His last chest x- ray yesterday showing stable infiltrates. He has no central line. He has a Maldonado catheter in place. He has an NG tube and gets tube feedings. Infectious disease consultation has been requested to evaluate the patient for persistent fevers. Notes reviewed Temps ok Doing well on T-piece Sputum C/S with normal resp slim CXR stable infiltrates WBC normal S/P PEG 11/11 Antibiotics Levaquin - to finish 11/25 Lines PIV Past Medical History Hypertension Past Surgical History Status post trach Status post craniectomy for evacuation of subdural hematoma Allergies: Coded Allergies: No Known Allergies (Unverified , 05/06/16) Objective . Vital Signs Date Time Temp Pulse Resp B/P (MAP) Pulse Ox O2 Delivery O2 Flow Rate FiO2 11/23/16 14:00 83 11/23/16 12:00 87 11/23/16 12:00 98.0 87 22 114/76 (89) 100 11/23/16 10:00 92 11/23/16 08:53 100 T-piece 5.00 28 11/23/16 08:00 98.5 76 24 110/63 (79) 100 11/23/16 08:00 76 11/23/16 07:00 T-Piece 6.00 28 11/23/16 06:00 80 11/23/16 04:00 98.4 79 28 114/67 (83) 100 11/23/16 04:00 79 11/23/16 02:00 80 11/23/16 00:00 84 11/23/16 00:00 98.8 84 23 117/71 (86) 100 11/22/16 22:09 99 T-piece 6.00 28 11/22/16 22:00 80 11/22/16 20:00 98.8 84 24 107/72 (84) 99 11/22/16 20:00 84 11/22/16 19:00 100 T-Piece 28 11/22/16 18:00 82 11/22/16 16:00 98.6 86 24 112/75 (87) 100 11/22/16 16:00 86 . Laboratory Tests Test 11/22/16 05:24 White Blood Count 4.9 TH/MM3 Red Blood Count 3.30 MIL/MM3 Hemoglobin 10.3 GM/DL Hematocrit 30.6 % Mean Corpuscular Volume 92.7 FL Mean Corpuscular Hemoglobin 31.3 PG Mean Corpuscular Hemoglobin Concent 33.8 % Red Cell Distribution Width 14.2 % Platelet Count 352 TH/MM3 Mean Platelet Volume 8.6 FL Neutrophils (%) (Auto) 56.8 % Lymphocytes (%) (Auto) 27.9 % Monocytes (%) (Auto) 11.1 % Eosinophils (%) (Auto) 3.3 % Basophils (%) (Auto) 0.9 % Neutrophils # (Auto) 2.8 TH/MM3 Lymphocytes # (Auto) 1.4 TH/MM3 Monocytes # (Auto) 0.5 TH/MM3 Eosinophils # (Auto) 0.2 TH/MM3 Basophils # (Auto) 0.0 TH/MM3 CBC Comment AUTO DIFF Differential Comment AUTO DIFF CONFIRMED Platelet Estimate HIGH Platelet Morphology Comment NORMAL Red Cell Morphology Comment NORMAL Laboratory Tests Test 11/22/16 05:24 Blood Urea Nitrogen 12 MG/DL Creatinine 0.37 MG/DL Random Glucose 108 MG/DL Total Protein 6.0 GM/DL Albumin 1.7 GM/DL Calcium Level 8.0 MG/DL Phosphorus Level 3.3 MG/DL Magnesium Level 1.8 MG/DL Alkaline Phosphatase 60 U/L Aspartate Amino Transf (AST/SGOT) 5 U/L Alanine Aminotransferase (ALT/SGPT) 11 U/L Total Bilirubin 0.2 MG/DL Sodium Level 136 MEQ/L Potassium Level 3.6 MEQ/L Chloride Level 103 MEQ/L Carbon Dioxide Level 26.7 MEQ/L Anion Gap 6 MEQ/L Estimat Glomerular Filtration Rate 245 ML/MIN Imaging Chest X-Ray 11/16/16 0000 Signed Impressions: Service Date/Time: Wednesday, November 16, 2016 05:45 - CONCLUSION: No significant change bilateral airspace opacities. Yosvany Butler MD Chest X-Ray 11/14/16 0000 Signed Impressions: Service Date/Time: Monday, November 14, 2016 12:12 - CONCLUSION: 1. Interval development of patchy bilateral lower lung zone airspace disease and small left pleural effusion. Findings are concerning for aspiration. Kev Vergara MD Chest X-Ray 11/11/16 0000 Signed Impressions: Service Date/Time: Friday, November 11, 2016 20:54 - CONCLUSION: Trace right base atelectasis. Yosvany Butler MD Abdomen X-Ray 10/21/16 0600 Signed Impressions: Service Date/Time: Friday, October 21, 2016 03:50 - CONCLUSION: 1. NGT in the stomach. 2. General paucity of small bowel gas. This finding is nonspecific and occasionally may reflect fluid-filled loops of bowel. Otherwise, no dilated bowel loops to suggest significant ileus or obstruction. Kev Vergara MD Transcranial Doppler Study Complete 9/7/17 0600 Signed Impressions: Service Date/Time: October 07:54 - CONCLUSION: Slight interval elevation of flow velocity measurements and ratio on the left Yosvany Polk MD Liver Ultrasound 10/19/16 Signed Impressions: Service Date/Time: Wednesday, October 19, 2016 11:20 - CONCLUSION: 1. Sludge filled gallbladder with thickened wall. 2. Moderate size bilateral pleural effusions and mild upper abdominal ascites. Santos Vazquez MD Cerebral Arteriogram 10/19/16 Signed Impressions: Service Date/Time: Wednesday, October 19, 2016 12:47 - CONCLUSION: Uncomplicated cerebral arteriography with spasmolytic therapy as described in detail above. Yosvany Polk MD Head CT 10/17/16 Signed Impressions: Service Date/Time: Monday, October 17, 2016 15:06 - CONCLUSION: Ventricles are slightly larger without ventriculostomy. Edema in the left hemisphere the brain herniating through the operative site. Remington Woodward MD FACR Infusion Non-thrombolysis 10/14/16 1103 Signed Impressions: Service Date/Time: Friday, October 14, 2016 10:21 - CONCLUSION: 1. Uncomplicated infusion for spasmolysis Harvey Morejon MD Neck CTA 10/07/16 Signed Impressions: Service Date/Time: Friday, October 07, 2016 15:03 - CONCLUSION: 1. Mild carotid bulb atherosclerotic calcification bilaterally. However, no significant stenosis is present in either internal carotid artery. 2. Paranasal sinus mucoperiosteal thickening. 3. Please refer to brain CTA report for description of the intracranial findings. Yosvany Ramirez MD Head CTA 10/07/16 0000 Signed Impressions: Service Date/Time: Friday, October 07, 2016 15:03 - CONCLUSION: 1. 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 2. Large left subdural hematoma measuring 1.3 cm in depth with a significant, 1.6 cm left to right subfalcine shift. Joni Shelton MD Chest X-Ray 11/05/16 06 Signed Impressions: Service Date/Time: Saturday, November 05, 2016 04:39 - CONCLUSION: Persistent non-consolidative infiltrates in the medial lower lungs. Santos Vazquez MD Abdomen X-Ray 10/21/16 0600 Signed Impressions: Service Date/Time: Friday, October 21, 2016 03:50 - CONCLUSION: 1. NGT in the stomach. 2. General paucity of small bowel gas. This finding is nonspecific and occasionally may reflect fluid-filled loops of bowel. Otherwise, no dilated bowel loops to suggest significant ileus or obstruction. Kev Vergara MD Transcranial Doppler Study Complete 10/20/16 0600 Signed Impressions: Service Date/Time: October 07:54 - CONCLUSION: Slight interval elevation of flow velocity measurements and ratio on the left Yosvany Polk MD Liver Ultrasound 10/19/16 0000 Signed Impressions: Service Date/Time: Wednesday, October 19, 2016 11:20 - CONCLUSION: 1. Sludge filled gallbladder with thickened wall. 2. Moderate size bilateral pleural effusions and mild upper abdominal ascites. Santos Vazquez MD Cerebral Arteriogram 10/19/16 0000 Signed Impressions: Service Date/Time: Wednesday, October 19, 2016 12:47 - CONCLUSION: Uncomplicated cerebral arteriography with spasmolytic therapy as described in detail above. Yosvany Polk MD Head CT 10/17/16 0000 Signed Impressions: Service Date/Time: Monday, October 17, 2016 15:06 - CONCLUSION: Ventricles are slightly larger without ventriculostomy. Edema in the left hemisphere the brain herniating through the operative site. Remington Woodward MD FACR Infusion Non-thrombolysis 10/14/16 1103 Signed Impressions: Service Date/Time: Friday, October 14, 2016 10:21 - CONCLUSION: 1. Uncomplicated infusion for spasmolysis Harvey Morejon MD Neck CTA 10/07/16 0000 Signed Impressions: Service Date/Time: Friday, October 07, 2016 15:03 - CONCLUSION: 1. Mild carotid bulb atherosclerotic calcification bilaterally. However, no significant stenosis is present in either internal carotid artery. 2. Paranasal sinus mucoperiosteal thickening. 3. Please refer to brain CTA report for description of the intracranial findings. Yosvany Ramirez MD Head CTA 10/07/16 0000 Signed Impressions: Service Date/Time: Friday, October 07, 2016 15:03 - CONCLUSION: 1. 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 2. Large left subdural hematoma measuring 1.3 cm in depth with a significant, 1.6 cm left to right subfalcine shift. Joni Shelton MD Physical Exam GENERAL: Looks comfortable, on T-piece SKIN: Warm and dry. HEAD: Incision healing with several areas that have eschar, no drainage, no redness, has dry dressing in place EYES: [place] conjunctiva. No petechia or hemorrhage. No scleral icterus. No injection or drainage. EARS, NOSE AND THROAT: Nose without bleeding or purulent nasal discharge. Slightly dry oral mucosa NECK: Trachea midline. Supple and not tender, no meningeal signs. Trach site ok CARDIOVASCULAR: Regular rate and rhythm. No murmurs, rubs or gallops heard RESPIRATORY: few scattered rhonchi, decreased at bases ABDOMEN: Soft, non-tender, nondistended. Bowel sounds present and normoactive. No guarding. No rebound. No organomegaly. EXTREMITIES: No clubbing, has pedal edema. Has dry gangrene LIF and R ring finger. All his toes have dry gangrene. No calf tenderness. NEUROLOGICAL: Awakens easily. stable PSYCHIATRIC: Normal affect, calm and cooperative. LINE: PIV with no evidence of infection Assessment & Plan Remarks IMPRESSION Persistent fevers since 11/02, WBC has improved - temps better - ?drug - UA 11/02 ok, has condom cath - no lines - diarrhea, C diff negative - has rash, ?fever due to Abx, ?Dilantin 2 BC with 2 different Coag Neg Staph, ?real, no lines now - last line removed 10/30 - ?contaminant S/P coiling aneurysm S/P craniectomy, decompression, evacuation of SDH Respiratory failure, S/P trach, on T-piece Rash likely drug eruption, ?Abx - B-lactam, ?Dilantin LV dysfunction Recurrent fevers, etiology? - ?aspirated - has new infiltrates on CXR - temps normal now Vomiting, better RECOMMENDATION Levaquin x 7 days, to finish 11/25 Monitor temps Monitor progress Should be ok to have OR Mitra Smith MD Nov 23, 2016 14:35
[2016-11-23] MEDS: RESP: ALBUTEROL 2.5 MG/IPRATROPIUM 0.5 MG NEB (SCH) NEB ×2 (16:12→20:48)
[2016-11-23] MEDS: MELATONIN 5 MG TAB PO SCH (19:51)
--- NOTE | 2016-11-23 20:41 | MB ---
cc: DIONNE GARCIA M.D. DATE OF CONSULTATION: 11/23/2016 REQUESTING PHYSICIAN: Dr. Perry REASON FOR CONSULTATION: Scalp wound. HISTORY OF PRESENT ILLNESS: The patient is a 56-year-old male who was admitted 10/07/2016 as a transfer from [facility] due to an intracranial bleed. The patient has been treated. The patient has been taken emergently to the angio suite for coiling of his aneurysm and later went to the operating room for subdural hematoma evacuation. The patient has been progressively improved and was recently taken off mechanical ventilation. He is not on mechanical ventilation. The last neurosurgical progress noted, dated 11/08/16. Consultation was received today from Dr. Perry regarding treatment of the scalp wound. PAST MEDICAL HISTORY: Gleaned from the chart, and is significant only for the stroke for which he came in on admission. LABORATORY DATA: His last white count was 4.9 with H&H of 10.3/30.6. Random glucose is 108, BUN is 12 with a creatinine of 0.37, and his INR yesterday was 1.0. PHYSICAL EXAMINATION: HEENT: On examination the patient is lying comfortably in bed though it is difficult for him to communicate. Examination of his scalp reveals the area of the bone removal on the left side, the posterior aspect in the area of the occipital parietal region. On the most posterior portion of the cranioplasty there is a wound measuring 2 cm x 1.5 cm in greatest dimension. There is no evidence of cellulitis. There is no swelling. There is scant amount of drainage. There is no ointment or antibacterial covering visible. It is covered by a 4x4. The majority of the wound itself is above the area where there is no bone. IMPRESSION The patient has an open wound of the scalp at the area of the cranioplasty. PLAN The patient will be placed on local wound care which well hopefully allow it to close with time if need be. This could be closed at the same time that the cranioplasty is performed. MD JENNIFER Monzon/NORBERTO /4:22 PM /8:26 PM
--- NOTE | 2016-11-23 23:13 | MB ---
cc: KATIE WILSON DATE OF CONSULTATION: 11/23/2016 REASON FOR CONSULTATION: Respiratory failure post tracheostomy. for removal of trache when possible. HISTORY OF PRESENT ILLNESS: Mr. Johansen is a 56-year-old male admitted 10/07/2016, transferred from [facility]. The patient underwent left frontal temporal parietal craniotomy for evacuation of subdural hematoma. The patient has a tracheostomy in place, was on ventilator support now on a T-bar. He did develop sepsis and cardiogenic shock which has since resolved. I am asked to see the patient at this time to remove his trache when posible. PHYSICAL EXAMINATION: On exam, the patient is in no acute distress. VITAL SIGNS: Temperature 98.5, pulse 80, respiratory rate 18, blood pressure 118/70. HEENT: Unremarkable. Eyes without icterus. NECK: Tracheostomy in place. CHEST: Few scattered rhonchi bilaterally. CARDIAC: PMI distant. S1-S2 audible. 02/18 ejection systolic murmur, left sternal border. ABDOMEN: Benign. Lax, bowel sounds audible. EXTREMITIES: No clubbing, cyanosis or edema. LABORATORY DATA: White count 4.9 on 11/22, hemoglobin 10, hematocrit 30. Sodium 136, potassium 3.6, BUN 12, creatinine 0.3. IMAGING STUDIES: Chest x-ray last done 11/18, showed bilateral nonspecific pulmonary infiltrate. IMPRESSION: 1. Respiratory failure. 2. Status post surgical removal of subdural hematoma. 3. Respiratory failure post tracheostomy. 4. Question pneumonia. PLAN: The patient is now on T-bar as mentioned above and he does continue to require oxygen therapy which should be maintained as well as pulmonary toilet. She he continue to improve, will attempt to remove his tracheostomy at some point when he is ready. I do thank you for asking me to partake in Mr. Johansen's care. Katie Wilson MD WWW/NORBERTO /7:19 PM /10:58 PM
[2016-11-24] VITALS (8 sets, daily range): BP systolic 111–133; BP diastolic 75–84; PULSE 83–94; RESP 16–27; TEMP 98–99.1; O2SAT 95–100
[2016-11-24] MEDS: DILTIAZEM HCL 90 MG TAB PO SCH ×5 (00:58→23:03)
[2016-11-24] MEDS: METOCLOPRAMIDE HCL 10 MG/2 ML VIAL IV PUSH SCH ×3 (00:59→17:42)
[2016-11-24] MEDS: CHLORHEXIDINE GLUCONATE 2 % 1 PACK (2 CLOTHS) TOP SCH (01:14)
[2016-11-24 04:52] LABS: MEAN CELL VOLUME 92.3 FL (80.0-100.0); MEAN CORPUSCULAR HGB CONC 33.6 % (32.0-36.0); PLATELET COUNT 305 TH/MM3 (150-450); RED BLOOD COUNT 3.14 MIL/MM3 (4.50-5.90); RED CELL DISTRIBUTION WIDTH 14.6 % (11.6-17.2); REVIEW FLAG FINAL; WHITE BLOOD COUNT 8.5 TH/MM3 (4.0-11.0)
[2016-11-24 05:20] LABS: BICARBONATE 25.7 MEQ/L (21.0-32.0); MAGNESIUM 1.7 MG/DL (1.5-2.5); POTASSIUM 3.8 MEQ/L (3.5-5.1)
[2016-11-24] MEDS: FREE WATER G-TUBE SCH ×5 (06:00→23:04)
--- NOTE | 2016-11-24 06:07 | RADRPT ---
EXAM DATE/TIME: 11/24/2016 05:10 [facility] COMPARISON: CHEST SINGLE AP, November 18, 2016, 5:04. INDICATIONS : Respiratory failure. MEDICAL HISTORY : Hypertension. Seizures, Subarachnoid hemmorhage. SURGICAL HISTORY : Craniotomy. Ventriculostomy ENCOUNTER: Subsequent ACUITY: 1 month PAIN SCORE: Non-responsive. LOCATION: Bilateral chest FINDINGS: Tracheostomy is stable. Bilateral perihilar and basilar infiltrates are grossly unchanged. Cardiac co ntours are stable. CONCLUSION: No significant interval change Yosvnay Polk MD on November 24, 2016 at 6:05 Board Certified Radiologist. This report was verified electronically.
[2016-11-24] MEDS: RESP: ALBUTEROL 2.5 MG/IPRATROPIUM 0.5 MG NEB (SCH) NEB ×4 (07:21→19:59)
[2016-11-24] MEDS: BENEPROTEIN POWDER 1 PACK G-TUBE SCH ×6 (07:51→17:43)
[2016-11-24] MEDS: CHLORHEXIDINE 0.12% (ORAL KIT) 15 ML CUP MT SCH ×2 (07:51→20:00)
[2016-11-24] MEDS: BACITRACIN TOP OINT 15 GM TUBE TOPICAL SCH ×2 (09:00→23:03)
[2016-11-24] MEDS: ARTIFICIAL TEARS OPTH SOLN 15 ML BTL EACH EYE SCH ×3 (09:00→17:43)
[2016-11-24] MEDS: POVIDONE IODINE 10% OINT 30 GM TUBE TOPICAL SCH (09:00)
[2016-11-24] MEDS: levETIRAcetam 500 MG/5 ML UDC NG SCH ×2 (09:32→23:03)
[2016-11-24] MEDS: LANSOPRAZOLE SOLUTAB 30 MG TAB NG SCH (09:32)
[2016-11-24] MEDS: LACTOBACILLUS ACIDOPHILUS TAB PO SCH ×3 (09:32→17:42)
[2016-11-24] MEDS: LEVOFLOXACIN 750 MG TAB PO SCH (09:32)
[2016-11-24] MEDS: SODIUM CHLORIDE 0.9% FLUSH 10 ML FLUSH IV FLUSH SCH ×2 (09:33→21:00)
[2016-11-24] MEDS: FUROSEMIDE 40 MG/5 ML UNIT DOSE CUP NG SCH (09:33)
[2016-11-24] MEDS ORDERED: oxyCODONE HCL ORAL CONC 5 MG/0.25 ML SYRINGE PO PRN (11:30)
--- NOTE | 2016-11-24 15:14 | HHI.PR ---
Subjective Remarks Follow up respiratory failure, hematoma. Patient states that he feels a little short of breath. He is requiring suctioning at times. Denies nausea, vomiting. No pain at this time. Objective Vitals Vital Signs Date Time Temp Pulse Resp B/P (MAP) Pulse Ox O2 Delivery O2 Flow Rate FiO2 11/24/16 12:00 94 11/24/16 12:00 98.4 94 22 111/75 (87) 100 11/24/16 08:00 99.1 84 20 133/84 (100) 95 11/24/16 08:00 85 11/24/16 07:21 98 T-piece 28 11/24/16 07:00 99 T-Piece 6.00 28 11/24/16 04:00 86 11/24/16 04:00 98.8 86 21 126/78 (94) 100 11/24/16 00:00 90 11/24/16 00:00 98.8 90 27 122/83 (96) 100 11/23/16 20:49 100 T-piece 28 11/23/16 20:00 98.4 84 20 137/64 (88) 100 11/23/16 20:00 84 11/23/16 19:00 100 T-Piece 6.00 28 11/23/16 16:00 98.5 84 24 118/70 (86) 100 11/23/16 16:00 84 I/O 11/23/16 11/23/16 11/23/16 11/24/16 11/24/16 11/24/16 07:00 15:00 23:00 07:00 15:00 23:00 Intake Total 1037 ml 1112 ml 825 ml Output Total 550 ml 1400 ml 750 ml Balance 487 ml -288 ml 75 ml Tube Feeding 637 ml 712 ml 425 ml Other 400 ml 400 ml 400 ml Output Urine Total 450 ml 900 ml 400 ml Stool Total 100 ml 500 ml 350 ml Result Diagram: 11/24/1642011/24/16420 Imaging Last Impressions Chest X-Ray 11/24/16599 Signed Impressions: Service Date/Time: November 05:10 - CONCLUSION: No significant interval change Yosvany Polk MD Abdomen X-Ray 11/19/16599 Signed Impressions: Service Date/Time: Saturday, November 19, 2016 02:44 - CONCLUSION: Unchanged bowel gas pattern potentially relating to an ileus. Santos Crockett Jr., MD Transcranial Doppler Study Complete 10/20/16 0600 Signed Impressions: Service Date/Time: October 07:54 - CONCLUSION: Slight interval elevation of flow velocity measurements and ratio on the left Yosvany Polk MD Liver Ultrasound 10/19/16 0000 Signed Impressions: Service Date/Time: Wednesday, October 19, 2016 11:20 - CONCLUSION: 1. Sludge filled gallbladder with thickened wall. 2. Moderate size bilateral pleural effusions and mild upper abdominal ascites. Santos Vazquez MD Cerebral Arteriogram 10/19/16 0000 Signed Impressions: Service Date/Time: Wednesday, October 19, 2016 12:47 - CONCLUSION: Uncomplicated cerebral arteriography with spasmolytic therapy as described in detail above. Yosvany Polk MD Head CT 10/17/16 0000 Signed Impressions: Service Date/Time: Monday, October 17, 2016 15:06 - CONCLUSION: Ventricles are slightly larger without ventriculostomy. Edema in the left hemisphere the brain herniating through the operative site. Remington Woodward MD FACR Infusion Non-thrombolysis 10/14/16 1103 Signed Impressions: Service Date/Time: Friday, October 14, 2016 10:21 - CONCLUSION: 1. Uncomplicated infusion for spasmolysis Harvey Morejon MD Neck CTA 10/07/16 0000 Signed Impressions: Service Date/Time: Friday, October 07, 2016 15:03 - CONCLUSION: 1. Mild carotid bulb atherosclerotic calcification bilaterally. However, no significant stenosis is present in either internal carotid artery. 2. Paranasal sinus mucoperiosteal thickening. 3. Please refer to brain CTA report for description of the intracranial findings. Yosvany Ramirez MD Head CTA 10/07/16 0000 Signed Impressions: Service Date/Time: Friday, October 07, 2016 15:03 - CONCLUSION: 1. 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 2. Large left subdural hematoma measuring 1.3 cm in depth with a significant, 1.6 cm left to right subfalcine shift. Joni Shelton MD Objective Remarks General: No acute distress. Trach. Heart: Regular rate and rhythm. No murmur. Lungs: Coarse breath sounds bilaterally. Breathing is nonlabored. Abdomen: Soft, nontender, nondistended. Extremities: 1+ bilateral ankle/foot edema. Ischemic changes to the distal left index finger, right fourth finger, toes of the right foot and left foot. Psych: Alert and oriented. HEENT: Scalp wound bandaged. Procedures 10/13 Four-vessel cerebral angiography with verapamil treatment of vasospasm Urinary Catheter: Yes Assessment to: Continue Maldonado insert reason: Obstruction/Retention Vascular Central Line Catheter: No A/P Problem List: (1) Subarachnoid hemorrhage due to ruptured aneurysm ICD Code: I60.8 - Other nontraumatic subarachnoid hemorrhage (2) Subdural hematoma ICD Code: I62.00 - Nontraumatic subdural hemorrhage, unspecified (3) Intracranial aneurysm ICD Code: I67.1 - Cerebral aneurysm, nonruptured (4) Respiratory failure ICD Code: J96.90 - Respiratory failure, unspecified, unspecified whether with hypoxia or hypercapnia Status: Acute Assessment and Plan 1. Left subdural hematoma, subarachnoid hemorrhage: Status post left frontotemporoparietal craniectomy 10/08/16. Management per neurosurgery. Plan to replace bone flap soon. 2. Chronic respiratory failure requiring tracheostomy: Appreciate pulmonology management of trach. Continue bronchodilators. 3. Septic and cardiogenic shock: Resolved. 4. Elevated troponin: Not likely secondary to ACS. 5. Cerebral salt wasting, SIADH: Resolved. 6. Elevated transaminases: Monitor labs. 7. FEN: Tube feeds. PEG tube placed 11/12/16. 8. Possible healthcare associated pneumonia: Status post treatment with Levaquin , fluconazole. Appreciate infectious disease recommendations. 9. Presumed adrenal insufficiency: Fludrocortisone discontinued 10/18/16. Monitor Accu-Cheks and cover with sliding scale insulin. 10. GI prophylaxis: PPI. 11. DVT prophylaxis: SCDs. Chemical prophylaxis on hold in anticipation of possible surgical intervention. Problem Qualifiers (1) Respiratory failure: Qualified Codes: J96.00 - Acute respiratory failure, unspecified whether with hypoxia or hypercapnia Brian Sanderson MD Nov 24, 2016 15:14
--- NOTE | 2016-11-24 15:24 | PD.CONS ---
[facility] Service Rehabilitation Medicine Consult Requested By Cyrus Boland M.D. Reason for Consult Comprehensive rehabilitation evaluation. Primary Care Physician No Primary Care Physician History of Present Illness Bridger Johansen is a 56-year-old right-hand dominant male admitted [facility] after presenting to [facility] with left-sided weakness and numbness. CT shows subarachnoid hemorrhage. He was transferred [facility] for additional neurosurgical intervention. He underwent P, aneurysm coiling by interventional radiology 10/07/16. Neurosurgery performed left frontotemporal parietal decompressive craniectomy with duraplasty and evacuation of subdural hematoma with ventriculostomy placement 10/07/16. He was extubated 10/07/16. He was noted to have severe vasospasm in the left MCA distribution requiring intra-arterial verapamil. Trach and PEG of been placed. Bone flap placement is pending. Review of Systems ROS Limitations: Clinical Condition, Other (Trach) Past Family Social History Allergies: Coded Allergies: No Known Allergies (Unverified , 05/06/16) Past Medical History Hypertension Past Surgical History None noted Current Medications Current Medications Medications (Trade) Dose Ordered Sig/Adali Route Start Time Stop Time Status Last Admin (Peridex 0.12% Liq) 15 ml BID@08,20 MT 10/07/16 20:00 11/24/16 07:51 (Zofran Inj) 4 mg Q6H PRN IV 10/07/16 18:30 11/13/16 20:31 Potassium Chloride 100 ml @ 50 mls/hr UNSCH PRN IV 10/07/16 18:30 11/06/16 08:55 Magnesium Sulfate 4 gm/Sodium Chloride 108 ml @ 108 mls/hr UNSCH PRN IV 10/07/16 18:30 (Tylenol) 650 mg Q4H PRN PO 10/07/16 18:30 11/14/16 03:07 (Heparin Inj) 5,000 units Q8HR SQ 10/14/16 22:00 Future Hold 11/13/16 21:20 (Mag-Ox) 800 mg UNSCH PRN PO 10/16/16 09:15 Magnesium Sulfate 4 gm/Sodium Chloride 100 ml @ 50 mls/hr UNSCH PRN IV 10/16/16 09:15 Magnesium Sulfate 2 gm/Sodium Chloride 100 ml @ 50 mls/hr UNSCH PRN IV 10/16/16 09:15 Potassium Chloride 100 ml @ 50 mls/hr Q2H PRN IV 10/16/16 09:15 11/15/16 12:36 Potassium Chloride 100 ml @ 50 mls/hr Q2H PRN IV 10/16/16 09:15 Potassium Chloride 100 ml @ 50 mls/hr Q2H PRN IV 10/16/16 09:15 10/27/16 13:26 Potassium Chloride 100 ml @ 25 mls/hr UNSCH PRN IV 10/16/16 09:15 10/30/16 06:06 (K-Phos) 2,000 mg Q4H PRN PO 10/16/16 09:15 (K-Phos) 2,000 mg UNSCH PRN PO/TUBE 10/16/16 09:15 Potassium Phosphate 30 mmol/ Sodium Chloride 260 ml @ 42 mls/hr UNSCH PRN IV 10/16/16 09:15 10/24/16 20:39 Sodium Phosphate 30 mmol/Sodium Chloride 250 ml @ 42 mls/hr UNSCH PRN IV 10/16/16 09:15 10/22/16 06:46 Calcium Gluconate 1 gm/Sodium Chloride 110 ml @ 110 mls/hr UNSCH PRN IV 10/18/16 09:45 10/18/16 10:22 (Prevacid Odt) 30 mg DAILY NG 10/20/16 09:00 11/24/16 09:32 (NS Flush) 2 ml UNSCH PRN IV FLUSH 10/19/16 09:45 (NS Flush) 2 ml BID IV FLUSH 10/19/16 21:00 11/24/16 09:33 (Tears Naturale Opth Soln) 1 drop TID EACH EYE 10/19/16 13:00 11/24/16 12:04 (Albuterol Neb) 2.5 mg Q2HR NEB PRN INH 10/19/16 09:45 11/22/16 22:09 Miscellaneous Information 1 Q361D XX 10/19/16 09:45 (Chlorhexidine 2% Cloth) Taper DAILY@04 TOP 10/20/16 04:00 10/16/17 03:59 11/13/16 04:00 (Chlorhexidine 2% Cloth) 3 pack UNSCH PRN TOP 10/19/16 09:45 (Beneprotein Powder) 1 pack TID G-TUBE 10/29/16 13:00 11/21/16 13:00 (Keppra Liq) 500 mg Q12HR NG 10/31/16 21:00 11/24/16 09:32 (Dilaudid Pf Inj) 0.5 mg Q4H PRN IV PUSH 11/01/16 15:00 11/19/16 01:42 (Haldol Inj) 5 mg Q4H PRN IV PUSH 11/01/16 15:00 (Melatonin) 5 mg HS PO 11/01/16 21:00 11/23/16 19:51 (Cardizem) 90 mg Q6HR PO 11/02/16 12:00 11/24/16 12:04 (Lactinex) 1 tab TID PO 11/06/16 18:00 11/24/16 12:04 (Lasix Liq) 20 mg DAILY NG 11/09/16 10:30 11/24/16 09:33 (Reglan Inj) 10 mg Q8H IV PUSH 11/18/16 02:00 11/24/16 09:33 (Zofran Inj) 4 mg Q6H PRN IV PUSH 11/18/16 01:45 (Baciguent Oint) 1 applic Q12HR TOPICAL 11/18/16 11:00 11/24/16 09:00 (Levaquin) 750 mg DAILY PO 11/18/16 12:00 11/25/16 11:59 11/24/16 09:32 (Beneprotein Powder) 1 pack TID G-TUBE 11/19/16 09:00 11/24/16 12:04 (Free Water) VOLUME OF WATER: 200 ML Q6HR G-TUBE 11/22/16 00:00 11/24/16 12:00 (Duoneb Neb) 1 ampule QID NEB NEB 11/23/16 16:00 11/24/16 10:40 (Betadine 10% Oint) 1 applic DAILY TOPICAL 11/24/16 09:00 11/24/16 09:00 (Roxicodone Intensol Liq) 10 mg Q4H PRN PO 11/24/16 11:30 Family History Unable to obtain Social History Prior to admission patient lived in [place], [place]. One pack per day tobacco. 2 beers per day. Exam I&O / VS Vital Signs Date Time Temp Pulse Resp B/P (MAP) Pulse Ox O2 Delivery O2 Flow Rate FiO2 11/24/16 12:00 94 11/24/16 12:00 98.4 94 22 111/75 (87) 100 11/24/16 08:00 99.1 84 20 133/84 (100) 95 11/24/16 08:00 85 11/24/16 07:21 98 T-piece 28 11/24/16 07:00 99 T-Piece 6.00 28 11/24/16 04:00 86 11/24/16 04:00 98.8 86 21 126/78 (94) 100 11/24/16 00:00 90 11/24/16 00:00 98.8 90 27 122/83 (96) 100 11/23/16 20:49 100 T-piece 28 11/23/16 20:00 98.4 84 20 137/64 (88) 100 11/23/16 20:00 84 11/23/16 19:00 100 T-Piece 6.00 28 11/23/16 16:00 98.5 84 24 118/70 (86) 100 11/23/16 16:00 84 General: No acute distress, Other (tracheostomy with T-piece) Respiratory: BS equal, Coarse breath sounds Gastrointestinal: Positive Bowel Sounds, Non-Distended, Other (PEG in place) Cardiovascular: Normal rate, Regular Rhythm Musculoskeletal: ROM (within functional limits) Psychiatric: Cooperative, Appropriate mood & affect Orientation: oriented to Self, unable to asses Place, unable to asses Time, unable to asses Situation Neurologic: Pupils (PERRLA), EOM (tracks right and left), Speech (attempting to verbalize) Motor: Right Upper Extremity (grossly 3/5), Left Upper Extremity (grossly 4/5) , Right Lower Extremity (grossly 3/5), Left Lower Extremity (grossly 4/5) Sensory Unable to assess Babinski: Negative Clonus: Negative Exam Comments Ischemic changes in the distal toes bilaterally and the right fourth digit and left index finger distally Assessment and Plan Diagnosis: (1) Subarachnoid hemorrhage due to ruptured aneurysm ICD Codes: I60.8 - Other nontraumatic subarachnoid hemorrhage Assessment 1. Subarachnoid hemorrhage status left posterior communicating artery aneurysm coiling, ventriculostomy, left frontotemporal parietal decompressive craniectomy with duraplasty and evacuation of subdural hematoma 10/07/16 2. Status post tracheostomy currently on T-Piece 3. PEG placement 4. Digital ischemia 5. Hypertension 6. History of tobacco abuse Plan 1. Physical therapy is mobilizing and patient is now moderate assistance supine to sit transfers. Continue to progress anticipating the patient should progress to gait 2. Occupational therapy is addressing ADLs and currently dependent 3. Speech therapy addressing cognition. Will need swallow eval 4. SCDs in place for DVT prophylaxis 5. Wound care following bilateral buttocks wounds. Continue to reposition every 2 hours 6. Will follow regarding ongoing rehabilitation needs at discharge in conjunction with case management 7. Will follow-up Spies and at discharge as appropriate Thank you for this consult Thelma Rojas MD Nov 24, 2016 15:24
--- NOTE | 2016-11-24 16:39 | HHI.PR ---
Subjective Remarks nNO DISTRESS ON T TUBE SAT 95% Objective Vital Signs Date Time Temp Pulse Resp B/P (MAP) Pulse Ox O2 Delivery O2 Flow Rate FiO2 11/24/16 12:00 94 11/24/16 12:00 98.4 94 22 111/75 (87) 100 11/24/16 08:00 99.1 84 20 133/84 (100) 95 11/24/16 08:00 85 11/24/16 07:21 98 T-piece 28 11/24/16 07:00 99 T-Piece 6.00 28 11/24/16 04:00 86 11/24/16 04:00 98.8 86 21 126/78 (94) 100 11/24/16 00:00 90 11/24/16 00:00 98.8 90 27 122/83 (96) 100 11/23/16 20:49 100 T-piece 28 11/23/16 20:00 98.4 84 20 137/64 (88) 100 11/23/16 20:00 84 11/23/16 19:00 100 T-Piece 6.00 28 I/O 11/23/16 11/23/16 11/23/16 11/24/16 11/24/16 11/24/16 07:00 15:00 23:00 07:00 15:00 23:00 Intake Total 1037 ml 1112 ml 825 ml Output Total 550 ml 1400 ml 750 ml Balance 487 ml -288 ml 75 ml Tube Feeding 637 ml 712 ml 425 ml Other 400 ml 400 ml 400 ml Output Urine Total 450 ml 900 ml 400 ml Stool Total 100 ml 500 ml 350 ml Result Diagram: 11/24/1642011/24/16420 Objective Remarks GENERAL: SKIN: Warm and dry. HEAD: Atraumatic. Normocephalic. EYES: Pupils equal and round. No scleral icterus. No injection or drainage. ENT: No nasal bleeding or discharge. Mucous membranes pink and moist. NECK: Trachea midline. No JVD. CARDIOVASCULAR: Regular rate and rhythm. RESPIRATORY: No accessory muscle use. Clear to auscultation. Breath sounds equal bilaterally. TRACHEOSTOMY IN PLACE GASTROINTESTINAL: Abdomen soft, non-tender, nondistended. Hepatic and splenic margins not palpable. MUSCULOSKELETAL: Extremities without clubbing, cyanosis, or edema. No obvious deformities. NEUROLOGICAL: Awake and alert. No obvious cranial nerve deficits. Motor grossly within normal limits. Five out of 5 muscle strength in the arms and legs. Normal speech. PSYCHIATRIC: Appropriate mood and affect; insight and judgment normal. Assessment and Plan Assessment and Plan RESP FAILURE S/P IC BLEED S/P TRACH PLAN O2 NEEDED PULMONARY TOILET REMOVE TRACH WHEN POSSIBLE Katie Wilson MD Nov 24, 2016 16:38
[2016-11-24] MEDS: MELATONIN 5 MG TAB PO SCH (23:03)
[2016-11-25] VITALS (9 sets, daily range): BP systolic 90–121; BP diastolic 44–75; PULSE 79–97; RESP 16–18; TEMP 97.3–98.3; O2SAT 93–99
[2016-11-25] MEDS: CHLORHEXIDINE GLUCONATE 2 % 1 PACK (2 CLOTHS) TOP SCH (02:24)
[2016-11-25] MEDS: METOCLOPRAMIDE HCL 10 MG/2 ML VIAL IV PUSH SCH ×3 (02:28→17:04)
[2016-11-25] MEDS: FREE WATER G-TUBE SCH ×3 (06:00→17:03)
[2016-11-25] MEDS: DILTIAZEM HCL 90 MG TAB PO SCH ×3 (06:17→17:02)
[2016-11-25] MEDS: CHLORHEXIDINE 0.12% (ORAL KIT) 15 ML CUP MT SCH ×2 (08:00→20:00)
[2016-11-25] MEDS: BENEPROTEIN POWDER 1 PACK G-TUBE SCH ×6 (08:29→17:04)
[2016-11-25] MEDS: ARTIFICIAL TEARS OPTH SOLN 15 ML BTL EACH EYE SCH ×3 (08:29→14:25)
[2016-11-25 08:37] LABS: BASOPHIL # 0.1 TH/MM3 (0-0.2); BASOPHIL % 0.8 % (0.0-2.0); EOSINOPHIL % 0.1 % (0.0-4.0); HEMATOCRIT 26.9 % (39.0-51.0); LYMPH % 14.1 % (9.0-44.0); LYMPHOCYTE # 1.7 TH/MM3 (1.0-4.8); MEAN CELL VOLUME 92.4 FL (80.0-100.0); MEAN CORPUSCULAR HEMOGLOBIN 30.9 PG (27.0-34.0); MEAN CORPUSCULAR HGB CONC 33.4 % (32.0-36.0); MONO % 8.4 % (0.0-8.0); NEUT % 76.6 % (16.0-70.0); PLATELET COUNT 364 TH/MM3 (150-450); RED BLOOD COUNT 2.91 MIL/MM3 (4.50-5.90); RED CELL DISTRIBUTION WIDTH 14.8 % (11.6-17.2); WHITE BLOOD COUNT 11.7 TH/MM3 (4.0-11.0)
[2016-11-25] MEDS: RESP: ALBUTEROL 2.5 MG/IPRATROPIUM 0.5 MG NEB (SCH) NEB ×4 (08:46→20:53)
[2016-11-25 08:48] LABS: HEMO FLAGS AUTO DIFF
[2016-11-25] MEDS: POVIDONE IODINE 10% OINT 30 GM TUBE TOPICAL SCH (09:00)
[2016-11-25 09:04] LABS: BICARBONATE 26.4 MEQ/L (21.0-32.0); POTASSIUM 4.1 MEQ/L (3.5-5.1)
[2016-11-25] MEDS: SODIUM CHLORIDE 0.9% FLUSH 10 ML FLUSH IV FLUSH SCH ×2 (09:19→21:00)
[2016-11-25] MEDS: LEVOFLOXACIN 750 MG TAB PO SCH (09:19)
[2016-11-25] MEDS: LANSOPRAZOLE SOLUTAB 30 MG TAB NG SCH (09:19)
[2016-11-25] MEDS: LACTOBACILLUS ACIDOPHILUS TAB PO SCH ×3 (09:19→17:04)
[2016-11-25] MEDS: levETIRAcetam 500 MG/5 ML UDC NG SCH ×2 (09:19→22:06)
[2016-11-25] MEDS: BACITRACIN TOP OINT 15 GM TUBE TOPICAL SCH ×2 (09:21→22:07)
--- NOTE | 2016-11-25 09:28 | HHI.PR ---
Subjective Remarks nNO DISTRESS ON T TUBE SAT 95% Objective Vital Signs Date Time Temp Pulse Resp B/P (MAP) Pulse Ox O2 Delivery O2 Flow Rate FiO2 11/25/16 08:46 99 T-piece 6.00 40 11/25/16 08:00 97.3 86 18 109/71 (84) 98 11/25/16 05:18 97.6 83 16 117/71 (86) 99 11/25/16 01:17 98.3 79 18 116/55 (75) 99 11/24/16 21:45 99 T-Piece 6.00 28 11/24/16 20:47 99.1 83 16 114/77 (89) 99 11/24/16 20:08 99 T-piece 28 11/24/16 16:00 98.0 94 20 130/77 (94) 99 11/24/16 16:00 94 11/24/16 12:00 94 11/24/16 12:00 98.4 94 22 111/75 (87) 100 I/O 11/24/16 11/24/16 11/24/16 11/25/16 11/25/16 11/25/16 07:00 15:00 23:00 07:00 15:00 23:00 Intake Total 825 ml 1084 ml Output Total 750 ml 850 ml 400 ml Balance 75 ml 234 ml -400 ml Tube Feeding 425 ml 624 ml Other 400 ml 460 ml Output Urine Total 400 ml 600 ml 400 ml Stool Total 350 ml 250 ml Result Diagram: 11/25/1681611/25/16816 Objective Remarks GENERAL: SKIN: Warm and dry. HEAD: Atraumatic. Normocephalic. EYES: Pupils equal and round. No scleral icterus. No injection or drainage. ENT: No nasal bleeding or discharge. Mucous membranes pink and moist. NECK: Trachea midline. No JVD. CARDIOVASCULAR: Regular rate and rhythm. RESPIRATORY: No accessory muscle use. Clear to auscultation. Breath sounds equal bilaterally. TRACHEOSTOMY IN PLACE GASTROINTESTINAL: Abdomen soft, non-tender, nondistended. Hepatic and splenic margins not palpable. MUSCULOSKELETAL: Extremities without clubbing, cyanosis, or edema. No obvious deformities. NEUROLOGICAL: Awake and alert. No obvious cranial nerve deficits. Motor grossly within normal limits. Five out of 5 muscle strength in the arms and legs. Normal speech. PSYCHIATRIC: Appropriate mood and affect; insight and judgment normal. Assessment and Plan Assessment and Plan RESP FAILURE S/P IC BLEED S/P TRACH PLAN O2 NEEDED PULMONARY TOILET REMOVE TRACH WHEN POSSIBLE Katie Wilson MD Nov 25, 2016 09:28
[2016-11-25 09:36] LABS: BANDS 10 % (0-6); BASOPHILS 1 % (0-2); NEUTROPHIL # MANUAL DIFF 9.9 TH/MM3 (1.8-7.7); POLYS (SEG NEUTROPHILS) 75 % (16-70); TOXIC GRANULATION 1+ (NORMAL); WBC DIFF SAMPLE 100
[2016-11-25 09:37] LABS: SCAN/DIFF FINAL DIFF MANUAL
[2016-11-25] MEDS: FUROSEMIDE 40 MG/5 ML UNIT DOSE CUP NG SCH (09:50)
--- NOTE | 2016-11-25 13:12 | HHI.IDPN ---
Subjective Subjective Remarks Patient is a 56-year-old male, initially admitted at [facility] after he developed acute onset of left-sided weakness and numbness. In [facility] emergency room his mental status deteriorated, and he required intubation. CT of the head showed subarachnoid bleed. He was transferred to [facility] for neurosurgical evaluation and treatment. Patient underwent angiogram and coiling of his aneurysm. He also underwent emergency surgery and had left frontal temporal parietal decompressive craniectomy, duraplasty, and evacuation of a subdural hematoma. He had a ezio hole and the ventriculostomy placement. His hospitalization was complicated by significant vasospasm of his cerebral arteries, and he had multiple angiogram and treatment of the vasospasm. He also had problem with significant LV dysfunction in both volume overload. His had hyponatremia that has been treated and corrected. He initially started having fevers and some clinical deterioration as far as infection around the first week of October. He had a sputum culture that had pneumococcus, beta- hemolytic strep and Haemophilus. He had one out of 2 blood culture that had anaerobic gram-negative cocci. He was on antibiotics up until October 23. Patient also required significant amount of pressors to maintain an adequate blood pressure to ensure cerebral perfusion. 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 Patient eventually underwent tracheostomy for his continued respiratory requirement, and had this procedure done November 01. Patient currently has been doing quite well and not requiring ventilatory support, and on T piece. Starting November 02 he started having fevers again as well as increased WBC. Repeat cultures at that time grew 2 blood cultures that had coag-negative staph. His central lines have been removed. Patient also has had liquid stool, but C. difficile is negative. Urinalysis done was unremarkable. Patient was started back on antibiotics on November 02 and has been on cefepime and IV vancomycin. He continues to have fevers. His WBC has been down to normal. His last chest x- ray yesterday showing stable infiltrates. He has no central line. He has a Maldonado catheter in place. He has an NG tube and gets tube feedings. Infectious disease consultation has been requested to evaluate the patient for persistent fevers. Notes reviewed Jean Pierre ok Doing well on T-piece He is out of ICU To finish Abx today Last CXR stable Sputum C/S with normal resp slim S/P PEG 11/11 Antibiotics Levaquin - to finish 11/25 Lines PIV Past Medical History Hypertension Past Surgical History Status post trach Status post craniectomy for evacuation of subdural hematoma Allergies: Coded Allergies: No Known Allergies (Unverified , 05/06/16) Objective . Vital Signs Date Time Temp Pulse Resp B/P (MAP) Pulse Ox O2 Delivery O2 Flow Rate FiO2 11/25/16 12:00 98.1 95 18 110/70 (83) 93 11/25/16 10:12 93 11/25/16 08:46 99 T-piece 6.00 40 11/25/16 08:00 98 T-Piece 6.00 28 11/25/16 08:00 97.3 86 18 109/71 (84) 98 11/25/16 05:18 97.6 83 16 117/71 (86) 99 11/25/16 01:17 98.3 79 18 116/55 (75) 99 11/24/16 21:45 99 T-Piece 6.00 28 11/24/16 20:47 99.1 83 16 114/77 (89) 99 11/24/16 20:08 99 T-piece 28 11/24/16 16:00 98.0 94 20 130/77 (94) 99 11/24/16 16:00 94 11/25/16 11/25/16 11/26/16 15:00 23:00 07:00 Intake Total 200 ml Balance 200 ml Other 200 ml . Laboratory Tests Test 11/24/16 04:21 11/25/16 08:17 White Blood Count 8.5 TH/MM3 11.7 TH/MM3 Red Blood Count 3.14 MIL/MM3 2.91 MIL/MM3 Hemoglobin 9.7 GM/DL 9.0 GM/DL Hematocrit 29.0 % 26.9 % Mean Corpuscular Volume 92.3 FL 92.4 FL Mean Corpuscular Hemoglobin 31.0 PG 30.9 PG Mean Corpuscular Hemoglobin Concent 33.6 % 33.4 % Red Cell Distribution Width 14.6 % 14.8 % Platelet Count 305 TH/MM3 364 TH/MM3 Mean Platelet Volume 8.6 FL 8.3 FL Neutrophils (%) (Auto) 76.6 % Lymphocytes (%) (Auto) 14.1 % Monocytes (%) (Auto) 8.4 % Eosinophils (%) (Auto) 0.1 % Basophils (%) (Auto) 0.8 % Neutrophils # (Auto) 9.0 TH/MM3 Lymphocytes # (Auto) 1.7 TH/MM3 Monocytes # (Auto) 1.0 TH/MM3 Eosinophils # (Auto) 0.0 TH/MM3 Basophils # (Auto) 0.1 TH/MM3 CBC Comment AUTO DIFF Differential Total Cells Counted 100 Neutrophils % (Manual) 75 % Band Neutrophils % 10 % Lymphocytes % 8 % Monocytes % 6 % Basophils % 1 % Neutrophils # (Manual) 9.9 TH/MM3 Differential Comment FINAL DIFF MANUAL Toxic Granulation 1+ Laboratory Tests Test 11/24/16 04:21 11/25/16 08:17 Blood Urea Nitrogen 14 MG/DL 15 MG/DL Creatinine 0.38 MG/DL 0.36 MG/DL Random Glucose 119 MG/DL 121 MG/DL Calcium Level 8.0 MG/DL 8.1 MG/DL Phosphorus Level 3.7 MG/DL Magnesium Level 1.7 MG/DL Sodium Level 134 MEQ/L 133 MEQ/L Potassium Level 3.8 MEQ/L 4.1 MEQ/L Chloride Level 100 MEQ/L 100 MEQ/L Carbon Dioxide Level 25.7 MEQ/L 26.4 MEQ/L Anion Gap 8 MEQ/L 7 MEQ/L Estimat Glomerular Filtration Rate 238 ML/MIN 253 ML/MIN Imaging Chest X-Ray 11/16/16 0000 Signed Impressions: Service Date/Time: Wednesday, November 16, 2016 05:45 - CONCLUSION: No significant change bilateral airspace opacities. Yosvany Butler MD Chest X-Ray 11/14/16 0000 Signed Impressions: Service Date/Time: Monday, November 14, 2016 12:12 - CONCLUSION: 1. Interval development of patchy bilateral lower lung zone airspace disease and small left pleural effusion. Findings are concerning for aspiration. Kev Vergara MD Chest X-Ray 11/11/16 0000 Signed Impressions: Service Date/Time: Friday, November 11, 2016 20:54 - CONCLUSION: Trace right base atelectasis. Yosvany Butler MD Abdomen X-Ray 10/21/16 0600 Signed Impressions: Service Date/Time: Friday, October 21, 2016 03:50 - CONCLUSION: 1. NGT in the stomach. 2. General paucity of small bowel gas. This finding is nonspecific and occasionally may reflect fluid-filled loops of bowel. Otherwise, no dilated bowel loops to suggest significant ileus or obstruction. Kev Vergara MD Transcranial Doppler Study Complete 10/20/16 0600 Signed Impressions: Service Date/Time: October 07:54 - CONCLUSION: Slight interval elevation of flow velocity measurements and ratio on the left Yosvany Polk MD Liver Ultrasound 10/19/16 0000 Signed Impressions: Service Date/Time: Wednesday, October 19, 2016 11:20 - CONCLUSION: 1. Sludge filled gallbladder with thickened wall. 2. Moderate size bilateral pleural effusions and mild upper abdominal ascites. Santos Vazquez MD Cerebral Arteriogram 10/19/16 0000 Signed Impressions: Service Date/Time: Wednesday, October 19, 2016 12:47 - CONCLUSION: Uncomplicated cerebral arteriography with spasmolytic therapy as described in detail above. Yosvany Polk MD Head CT 10/17/16 0000 Signed Impressions: Service Date/Time: Monday, October 17, 2016 15:06 - CONCLUSION: Ventricles are slightly larger without ventriculostomy. Edema in the left hemisphere the brain herniating through the operative site. Remington Woodward MD FACR Infusion Non-thrombolysis 10/14/16 1103 Signed Impressions: Service Date/Time: Friday, October 14, 2016 10:21 - CONCLUSION: 1. Uncomplicated infusion for spasmolysis Harvey Morejon MD Neck CTA 10/07/16 0000 Signed Impressions: Service Date/Time: Friday, October 07, 2016 15:03 - CONCLUSION: 1. Mild carotid bulb atherosclerotic calcification bilaterally. However, no significant stenosis is present in either internal carotid artery. 2. Paranasal sinus mucoperiosteal thickening. 3. Please refer to brain CTA report for description of the intracranial findings. Yosvany Ramirez MD Head CTA 10/07/16 0000 Signed Impressions: Service Date/Time: Friday, October 07, 2016 15:03 - CONCLUSION: 1. 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 2. Large left subdural hematoma measuring 1.3 cm in depth with a significant, 1.6 cm left to right subfalcine shift. Joni Shelton MD Chest X-Ray 11/05/16 0600 Signed Impressions: Service Date/Time: Saturday, November 05, 2016 04:39 - CONCLUSION: Persistent non-consolidative infiltrates in the medial lower lungs. Santos Vazquez MD Abdomen X-Ray 10/21/16 0600 Signed Impressions: Service Date/Time: Friday, October 21, 2016 03:50 - CONCLUSION: 1. NGT in the stomach. 2. General paucity of small bowel gas. This finding is nonspecific and occasionally may reflect fluid-filled loops of bowel. Otherwise, no dilated bowel loops to suggest significant ileus or obstruction. Kev Vergara MD Transcranial Doppler Study Complete 10/20/16 06 Signed Impressions: Service Date/Time: October 07:54 - CONCLUSION: Slight interval elevation of flow velocity measurements and ratio on the left Yosvany Polk MD Liver Ultrasound 10/19/16 0000 Signed Impressions: Service Date/Time: Wednesday, October 19, 2016 11:20 - CONCLUSION: 1. Sludge filled gallbladder with thickened wall. 2. Moderate size bilateral pleural effusions and mild upper abdominal ascites. Santos Vazquez MD Cerebral Arteriogram 10/19/16 0000 Signed Impressions: Service Date/Time: Wednesday, October 19, 2016 12:47 - CONCLUSION: Uncomplicated cerebral arteriography with spasmolytic therapy as described in detail above. Yosvany Polk MD Head CT 10/17/16 0000 Signed Impressions: Service Date/Time: Monday, October 17, 2016 15:06 - CONCLUSION: Ventricles are slightly larger without ventriculostomy. Edema in the left hemisphere the brain herniating through the operative site. Remington Woodward MD FACR Infusion Non-thrombolysis 10/14/16 1103 Signed Impressions: Service Date/Time: Friday, October 14, 2016 10:21 - CONCLUSION: 1. Uncomplicated infusion for spasmolysis Harvey Morejon MD Neck CTA 10/07/16 0000 Signed Impressions: Service Date/Time: Friday, October 07, 2016 15:03 - CONCLUSION: 1. Mild carotid bulb atherosclerotic calcification bilaterally. However, no significant stenosis is present in either internal carotid artery. 2. Paranasal sinus mucoperiosteal thickening. 3. Please refer to brain CTA report for description of the intracranial findings. Yosvany Ramirez MD Head CTA 10/07/16 0000 Signed Impressions: Service Date/Time: Friday, October 07, 2016 15:03 - CONCLUSION: 1. 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 2. Large left subdural hematoma measuring 1.3 cm in depth with a significant, 1.6 cm left to right subfalcine shift. Joni Shelton MD Physical Exam GENERAL: Looks comfortable, on T-piece SKIN: Warm and dry. HEAD: Incision healing with several areas that have eschar, no drainage, no redness, has dry dressing in place EYES: [place] conjunctiva. No petechia or hemorrhage. No scleral icterus. No injection or drainage. EARS, NOSE AND THROAT: Nose without bleeding or purulent nasal discharge. Slightly dry oral mucosa NECK: Trachea midline. Supple and not tender, no meningeal signs. Trach site ok CARDIOVASCULAR: Regular rate and rhythm. No murmurs, rubs or gallops heard RESPIRATORY: few scattered rhonchi, decreased at bases ABDOMEN: Soft, non-tender, nondistended. Bowel sounds present and normoactive. No guarding. No rebound. No organomegaly. EXTREMITIES: No clubbing, has pedal edema. Has dry gangrene LIF and R ring finger. All his toes have dry gangrene. No calf tenderness. NEUROLOGICAL: Awakens easily. stable PSYCHIATRIC: Normal affect, calm and cooperative. LINE: PIV with no evidence of infection Assessment & Plan Remarks IMPRESSION Fevers since 11/02, resolved 2 BC with 2 different Coag Neg Staph, ?real, no lines now - last line removed 10/30 - ?contaminant S/P coiling aneurysm S/P craniectomy, decompression, evacuation of SDH Respiratory failure, S/P trach, on T-piece Rash likely drug eruption, ?Abx - B-lactam, ?Dilantin LV dysfunction Recurrent fevers, resolved Vomiting, better RECOMMENDATION Levaquin x 7 days, to finish 11/25 Monitor temps Monitor progress Should be ok to have OR Clinically doing well from ID standpoint I will sign off Please reconsult if with any new ID issue or question Mitra Smith MD Nov 25, 2016 13:12
--- NOTE | 2016-11-25 13:25 | HHI.PR ---
Subjective Remarks Follow up subdural hematoma, respiratory failure. Patient is having some bloody secretions from the trach. Reports some dyspnea, no chest pain. No nausea, vomiting. Objective Vitals Vital Signs Date Time Temp Pulse Resp B/P (MAP) Pulse Ox O2 Delivery O2 Flow Rate FiO2 11/25/16 12:00 98.1 95 18 110/70 (83) 93 11/25/16 10:12 93 11/25/16 08:46 99 T-piece 6.00 40 11/25/16 08:00 98 T-Piece 6.00 28 11/25/16 08:00 97.3 86 18 109/71 (84) 98 11/25/16 05:18 97.6 83 16 117/71 (86) 99 11/25/16 01:17 98.3 79 18 116/55 (75) 99 11/24/16 21:45 99 T-Piece 6.00 28 11/24/16 20:47 99.1 83 16 114/77 (89) 99 11/24/16 20:08 99 T-piece 28 11/24/16 16:00 98.0 94 20 130/77 (94) 99 11/24/16 16:00 94 I/O 11/24/16 11/24/16 11/24/16 11/25/16 11/25/16 11/25/16 07:00 15:00 23:00 07:00 15:00 23:00 Intake Total 825 ml 1084 ml 200 ml Output Total 750 ml 850 ml 400 ml Balance 75 ml 234 ml -400 ml 200 ml Tube Feeding 425 ml 624 ml Other 400 ml 460 ml 200 ml Output Urine Total 400 ml 600 ml 400 ml Stool Total 350 ml 250 ml Result Diagram: 11/25/1681611/25/16816 Imaging Last Impressions Chest X-Ray 11/24/16599 Signed Impressions: Service Date/Time: November 05:10 - CONCLUSION: No significant interval change Yosvany Polk MD Abdomen X-Ray 11/19/16599 Signed Impressions: Service Date/Time: Saturday, November 19, 2016 02:44 - CONCLUSION: Unchanged bowel gas pattern potentially relating to an ileus. Santos Crockett Jr., MD Transcranial Doppler Study Complete 10/20/16599 Signed Impressions: Service Date/Time: October 07:54 - CONCLUSION: Slight interval elevation of flow velocity measurements and ratio on the left Yosvany Polk MD Liver Ultrasound 10/19/16 0000 Signed Impressions: Service Date/Time: Wednesday, October 19, 2016 11:20 - CONCLUSION: 1. Sludge filled gallbladder with thickened wall. 2. Moderate size bilateral pleural effusions and mild upper abdominal ascites. Santos Vazquez MD Cerebral Arteriogram 10/19/16 0000 Signed Impressions: Service Date/Time: Wednesday, October 19, 2016 12:47 - CONCLUSION: Uncomplicated cerebral arteriography with spasmolytic therapy as described in detail above. Yosvany Polk MD Head CT 10/17/16 0000 Signed Impressions: Service Date/Time: Monday, October 17, 2016 15:06 - CONCLUSION: Ventricles are slightly larger without ventriculostomy. Edema in the left hemisphere the brain herniating through the operative site. Remington Woodward MD FACR Infusion Non-thrombolysis 10/14/16 1103 Signed Impressions: Service Date/Time: Friday, October 14, 2016 10:21 - CONCLUSION: 1. Uncomplicated infusion for spasmolysis Harvey Morejon MD Neck CTA 10/07/16 0000 Signed Impressions: Service Date/Time: Friday, October 07, 2016 15:03 - CONCLUSION: 1. Mild carotid bulb atherosclerotic calcification bilaterally. However, no significant stenosis is present in either internal carotid artery. 2. Paranasal sinus mucoperiosteal thickening. 3. Please refer to brain CTA report for description of the intracranial findings. Yosvany Ramirez MD Head CTA 10/07/16 0000 Signed Impressions: Service Date/Time: Friday, October 07, 2016 15:03 - CONCLUSION: 1. 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 2. Large left subdural hematoma measuring 1.3 cm in depth with a significant, 1.6 cm left to right subfalcine shift. Joni Shelton MD Objective Remarks General: No acute distress. Trach tube with bloody secretions. Heart: Regular rate and rhythm. No murmur. Lungs: Coarse breath sounds bilaterally. Breathing is nonlabored. Abdomen: Soft, nontender, nondistended. Extremities: 1+ bilateral ankle/foot edema. Ischemic changes to the distal left index finger, right fourth finger, toes of the right foot and left foot. Psych: Alert and oriented. HEENT: Scalp wound bandaged. Procedures 10/13 Four-vessel cerebral angiography with verapamil treatment of vasospasm Urinary Catheter: No Vascular Central Line Catheter: No A/P Problem List: (1) Subarachnoid hemorrhage due to ruptured aneurysm ICD Code: I60.8 - Other nontraumatic subarachnoid hemorrhage (2) Subdural hematoma ICD Code: I62.00 - Nontraumatic subdural hemorrhage, unspecified (3) Intracranial aneurysm ICD Code: I67.1 - Cerebral aneurysm, nonruptured (4) Respiratory failure ICD Code: J96.90 - Respiratory failure, unspecified, unspecified whether with hypoxia or hypercapnia Status: Acute Assessment and Plan 1. Left subdural hematoma, subarachnoid hemorrhage: Status post left frontotemporoparietal craniectomy 10/08/16. Reconsult neurosurgery as patient is now off antibiotics and cleared for surgery by ID. 2. Chronic respiratory failure requiring tracheostomy: Appreciate pulmonology management of trach. Continue bronchodilators. Bloody secretions noted. Change trach per pulmonology. 3. Septic and cardiogenic shock: Resolved. 4. Elevated troponin: Not likely secondary to ACS. 5. Cerebral salt wasting, SIADH: Resolved. 6. Elevated transaminases: Monitor labs. 7. FEN: Tube feeds. PEG tube placed 11/12/16. 8. Possible healthcare associated pneumonia: Status post treatment with Levaquin , fluconazole. Appreciate infectious disease recommendations. 9. Presumed adrenal insufficiency: Fludrocortisone discontinued 10/18/16. 10. GI prophylaxis: PPI. 11. DVT prophylaxis: SCDs. Chemical prophylaxis on hold in anticipation of possible surgical intervention. Problem Qualifiers (1) Respiratory failure: Qualified Codes: J96.00 - Acute respiratory failure, unspecified whether with hypoxia or hypercapnia Brian Sanderson MD Nov 25, 2016 13:25
--- NOTE | 2016-11-25 16:53 | PD.WCN.NOT ---
Wound Consult Description: Follow up of wounds to bilateral buttocks Communicated with: JOSE CRUZ Guerrero RN Recommendation: Please cleanse bilateral buttocks/sacrum area gently when soiled. Apply thick layer of calazime barrier cream over sacrum, coccyx, and bilateral buttock areas and leave open to air. Continue to turn and reposition patient every 2 hours from left to right and PRN for comfort Additional Information: Patient seen on for follow up of wounds to bilateral buttocks. Patient positioned himself to his left side for assessment after holding tube feed and lowering head of bed. 2 soiled pads and foam dressing removed from sacral/ buttocks to visualize wounds. Right buttock wound presents as full thickness skin loss measuring 4.8cm x 2cm x 0.2cm with ~50% yellow tissue and ~50% pink tissue noted in moist wound bed with jagged wound margins and macerated periwounds with blanching erythema, no active drainage, and no odor. Left buttock wound presents as full thickness skin loss measuring approximately the same as the right buttock wound with moist wound bed, no active drainage and no odor. Wound bed is ~50% yellow and ~50% pink tissue with jagged wound margins and macerated periwounds. Wounds were cleansed with NS and gauze prior to applying thick layer of Calazime skin protectant over bilateral buttocks and sacrum. Patient is noted on a low airloss specialty surface with 2 staggered ultrasorbs underneath him for moisture. Recommendations for Calazime BID and PRN remain unchanged until skin is no longer macerated so that a dressing may be placed. Patient is being followed by wound care team. Patient was positioned to his left side. Head of bed was positioned >30 degrees for resuming tube feed. Shyla Weir [facility] Nov 25, 2016 16:53
[2016-11-25] MEDS: MELATONIN 5 MG TAB PO SCH (22:06)
--- NOTE | 2016-11-25 22:12 | RADRPT ---
EXAM DATE/TIME: 11/25/2016 21:31 [facility] COMPARISON: CHEST SINGLE AP, November 24, 2016, 5:10. INDICATIONS : Shortness of breath MEDICAL HISTORY : Hypertension. Seizures, Subarachnoid hemmorhage SURGICAL HISTORY : Craniotomy. Ventriculostomy ENCOUNTER: Subsequent ACUITY: 1 month PAIN SCORE: Non-responsive. LOCATION: Bilateral chest FINDINGS: There is a tracheostomy tube in good position. The heart size is normal. There is increased density a t the right base with some silhouetting of the right hemidiaphragm. The left lung is grossly clear. CONCLUSION: Mild right base atelectasis or consolidation. Yosvany Alfaro MD on November 25, 2016 at 22:07 Board Certified Radiologist. This report was verified electronically.
[2016-11-26] VITALS (16 sets, daily range): BP systolic 108–134; BP diastolic 61–95; PULSE 76–121; RESP 18–24; TEMP 97.4–98.8; O2SAT 94–100
[2016-11-26] MEDS: DILTIAZEM HCL 90 MG TAB PO SCH ×4 (00:45→18:17)
[2016-11-26] MEDS: METOCLOPRAMIDE HCL 10 MG/2 ML VIAL IV PUSH SCH ×3 (00:46→18:17)
[2016-11-26] MEDS: CHLORHEXIDINE GLUCONATE 2 % 1 PACK (2 CLOTHS) TOP SCH ×2 (00:46→21:25)
[2016-11-26] MEDS: FREE WATER G-TUBE SCH ×4 (05:26→18:00)
[2016-11-26] MEDS: CHLORHEXIDINE 0.12% (ORAL KIT) 15 ML CUP MT SCH ×3 (08:00→20:00)
[2016-11-26 08:24] LABS: AUTOMATED NEUTROPHIL # 11.9 TH/MM3 (1.8-7.7); BASOPHIL # 0.1 TH/MM3 (0-0.2); BASOPHIL % 0.7 % (0.0-2.0); HEMATOCRIT 26.6 % (39.0-51.0); HEMO FLAGS DIFF FINAL; LYMPH % 14.4 % (9.0-44.0); LYMPHOCYTE # 2.2 TH/MM3 (1.0-4.8); MEAN CELL VOLUME 92.8 FL (80.0-100.0); MEAN CORPUSCULAR HGB CONC 33.4 % (32.0-36.0); MONO % 7.3 % (0.0-8.0); NEUT % 77.6 % (16.0-70.0); PLATELET COUNT 380 TH/MM3 (150-450); RED BLOOD COUNT 2.87 MIL/MM3 (4.50-5.90); RED CELL DISTRIBUTION WIDTH 14.7 % (11.6-17.2); WHITE BLOOD COUNT 15.4 TH/MM3 (4.0-11.0)
[2016-11-26] MEDS: BENEPROTEIN POWDER 1 PACK G-TUBE SCH ×6 (08:37→18:00)
[2016-11-26 08:43] LABS: BICARBONATE 27.5 MEQ/L (21.0-32.0); POTASSIUM 4.1 MEQ/L (3.5-5.1)
[2016-11-26] MEDS: ARTIFICIAL TEARS OPTH SOLN 15 ML BTL EACH EYE SCH ×3 (09:00→18:18)
[2016-11-26] MEDS: LACTOBACILLUS ACIDOPHILUS TAB PO SCH ×3 (09:00→18:17)
[2016-11-26] MEDS: SODIUM CHLORIDE 0.9% FLUSH 10 ML FLUSH IV FLUSH SCH ×2 (09:00→21:30)
[2016-11-26] MEDS: BACITRACIN TOP OINT 15 GM TUBE TOPICAL SCH ×2 (09:00→21:00)
[2016-11-26] MEDS: POVIDONE IODINE 10% OINT 30 GM TUBE TOPICAL SCH (09:00)
[2016-11-26] MEDS: RESP: ALBUTEROL 2.5 MG/IPRATROPIUM 0.5 MG NEB (SCH) NEB ×4 (09:32→20:50)
[2016-11-26] MEDS: levETIRAcetam 500 MG/5 ML UDC NG SCH ×2 (12:20→21:31)
[2016-11-26] MEDS: LANSOPRAZOLE SOLUTAB 30 MG TAB NG SCH (12:21)
[2016-11-26] MEDS: FUROSEMIDE 40 MG/5 ML UNIT DOSE CUP NG SCH (12:22)
--- NOTE | 2016-11-26 15:46 | HHI.PR ---
Subjective Remarks Follow-up respiratory failure, subdural hematoma. Patient continues to have bloody secretions from his tracheostomy site. The secretions are thicker and darker red than yesterday. He does complain of dyspnea at times. Denies chest pain, nausea, vomiting. Objective Vitals Vital Signs Date Time Temp Pulse Resp B/P (MAP) Pulse Ox O2 Delivery O2 Flow Rate FiO2 11/26/16 14:44 100 19 125/75 (92) 94 11/26/16 14:10 76 11/26/16 14:10 T-Piece 6.00 28 Humidified 11/26/16 12:00 98.5 95 20 116/72 (87) 96 11/26/16 09:32 95 T-piece 28 11/26/16 08:00 98.3 90 20 129/70 (89) 100 11/26/16 04:00 97.9 91 18 108/70 (83) 98 11/26/16 01:12 97.4 110 18 124/84 (97) 99 11/26/16 00:24 95 11/25/16 20:58 98 T-piece 6.00 28 11/25/16 20:41 98.1 95 18 121/75 (90) 96 11/25/16 20:00 98 T-Piece 6.00 28 Humidified 11/25/16 16:00 98.0 97 18 90/44 (59) 96 I/O 11/25/16 11/25/16 11/25/16 11/26/16 11/26/16 11/26/16 07:00 15:00 23:00 07:00 15:00 23:00 Intake Total 200 ml 800 ml Output Total 400 ml 500 ml 400 ml Balance -400 ml -300 ml 800 ml -400 ml Tube Feeding 600 ml Other 200 ml 200 ml Output Urine Total 400 ml 500 ml 400 ml Result Diagram: 11/26/16 0738 11/26/16 0738 Imaging Last Impressions Chest X-Ray 11/25/16 0000 Signed Impressions: Service Date/Time: Friday, November 25, 2016 21:31 - CONCLUSION: Mild right base atelectasis or consolidation. Yosvany Alfaro MD Abdomen X-Ray 11/19/16 0600 Signed Impressions: Service Date/Time: Saturday, November 19, 2016 02:44 - CONCLUSION: Unchanged bowel gas pattern potentially relating to an ileus. Santos Crockett Jr., MD Transcranial Doppler Study Complete 10/20/16 0600 Signed Impressions: Service Date/Time: October 07:54 - CONCLUSION: Slight interval elevation of flow velocity measurements and ratio on the left Yosvany Polk MD Liver Ultrasound 10/19/16 0000 Signed Impressions: Service Date/Time: Wednesday, October 19, 2016 11:20 - CONCLUSION: 1. Sludge filled gallbladder with thickened wall. 2. Moderate size bilateral pleural effusions and mild upper abdominal ascites. Santos Vazquez MD Cerebral Arteriogram 10/19/16 0000 Signed Impressions: Service Date/Time: Wednesday, October 19, 2016 12:47 - CONCLUSION: Uncomplicated cerebral arteriography with spasmolytic therapy as described in detail above. Yosvany Polk MD Head CT 10/17/16 0000 Signed Impressions: Service Date/Time: Monday, October 17, 2016 15:06 - CONCLUSION: Ventricles are slightly larger without ventriculostomy. Edema in the left hemisphere the brain herniating through the operative site. Remington Woodward MD FACR Infusion Non-thrombolysis 10/14/16 1103 Signed Impressions: Service Date/Time: Friday, October 14, 2016 10:21 - CONCLUSION: 1. Uncomplicated infusion for spasmolysis Harvey Morejon MD Neck CTA 10/07/16 0000 Signed Impressions: Service Date/Time: Friday, October 07, 2016 15:03 - CONCLUSION: 1. Mild carotid bulb atherosclerotic calcification bilaterally. However, no significant stenosis is present in either internal carotid artery. 2. Paranasal sinus mucoperiosteal thickening. 3. Please refer to brain CTA report for description of the intracranial findings. Yosvany Ramirez MD Head CTA 10/07/16 0000 Signed Impressions: Service Date/Time: Friday, October 07, 2016 15:03 - CONCLUSION: 1. 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 2. Large left subdural hematoma measuring 1.3 cm in depth with a significant, 1.6 cm left to right subfalcine shift. Joni Shelton MD Objective Remarks General: No acute distress. Trach tube with bloody secretions. Heart: Regular rate and rhythm. No murmur. Lungs: Coarse breath sounds bilaterally. Breathing is nonlabored. Abdomen: Soft, nontender, nondistended. Extremities: 1+ bilateral ankle/foot edema. Ischemic changes to the distal left index finger, right fourth finger, toes of the right foot and left foot. Psych: Alert and oriented. HEENT: Scalp wound bandaged. Procedures 10/13 Four-vessel cerebral angiography with verapamil treatment of vasospasm Urinary Catheter: No Vascular Central Line Catheter: No A/P Problem List: (1) Subarachnoid hemorrhage due to ruptured aneurysm ICD Code: I60.8 - Other nontraumatic subarachnoid hemorrhage (2) Subdural hematoma ICD Code: I62.00 - Nontraumatic subdural hemorrhage, unspecified (3) Intracranial aneurysm ICD Code: I67.1 - Cerebral aneurysm, nonruptured (4) Respiratory failure ICD Code: J96.90 - Respiratory failure, unspecified, unspecified whether with hypoxia or hypercapnia Status: Acute Assessment and Plan 1. Left subdural hematoma, subarachnoid hemorrhage: Status post left frontotemporoparietal craniectomy 10/08/16. Neurosurgery reconsult as patient is now off antibiotics and cleared for surgery by ID. 2. Chronic respiratory failure requiring tracheostomy: Appreciate pulmonology management of trach. Continue bronchodilators. Bloody secretions noted. Pulmonology notified. 3. Septic and cardiogenic shock: Resolved. 4. Elevated troponin: Not likely secondary to ACS. 5. Cerebral salt wasting, SIADH: Resolved. 6. Elevated transaminases: Monitor labs. 7. FEN: Tube feeds. PEG tube placed 11/12/16. 8. Possible healthcare associated pneumonia: Status post treatment with Levaquin , fluconazole. Appreciate infectious disease recommendations. 9. Presumed adrenal insufficiency: Fludrocortisone discontinued 10/18/16. 10. GI prophylaxis: PPI. 11. DVT prophylaxis: SCDs. Chemical prophylaxis on hold in anticipation of possible surgical intervention. Problem Qualifiers (1) Respiratory failure: Qualified Codes: J96.00 - Acute respiratory failure, unspecified whether with hypoxia or hypercapnia Brian Sanderson MD Nov 26, 2016 15:46
[2016-11-26] MEDS ORDERED: MIDAZOLAM HCL 5 MG/ML VIAL (1 ML) ONE (16:24)
[2016-11-26] MEDS ORDERED: ROCURONIUM INJ 50 MG/5 ML VIAL ONE (16:24)
--- NOTE | 2016-11-26 16:34 | RADRPT ---
EXAM DATE/TIME: 11/26/2016 15:55 [facility] COMPARISON: CHEST SINGLE AP, November 25, 2016, 21:31. INDICATIONS : Hemoptysis- Shortness of breath. MEDICAL HISTORY : Hypertension. Seizures, Subarachnoid hemmorhage SURGICAL HISTORY : Craniotomy. Ventriculostomy ENCOUNTER: Subsequent ACUITY: 1 day PAIN SCORE: Non-responsive. LOCATION: Bilateral chest FINDINGS: The cardiac silhouette is normal in transverse diameter. A tracheostomy tube is in place in the midli ne. There is patchy alveolar disease bilaterally compatible with edema or pneumonia. There has been n o significant change when compared to the prior exam. No pleural effusions are identified. CONCLUSION: 1. Patchy alveolar disease characteristic of edema or pneumonia. There has been no significant peralta e when compared to the prior exam. Harvey Morejon MD on November 26, 2016 at 16:32 Board Certified Radiologist. This report was verified electronically.
[2016-11-26] MEDS ORDERED: PROPOFOL 500 MG/50 ML INJ 50 ML ONE ×2 (16:53→18:43)
[2016-11-26 17:22] LABS: HEMATOCRIT 24.8 % (39.0-51.0); REVIEW FLAG FINAL
[2016-11-26 17:31] LABS: PROTHROMBIN TIME - PATIENT 10.7 SEC (9.8-11.6)
--- NOTE | 2016-11-26 17:53 | HHI.CCPN ---
Subjective Remarks/Hospital Course 10/07: 56-year-old male presents with intracranial bleed. Patient was transferred from [facility] at [facility]. As per the paramedics and the nurse who assisted the patient said that patient earlier this morning was coming down the stairs when he started feeling some left-sided weakness and numbness. He called 911 and by the time EMS arrived they detected some deficit and called a stroke alert. Patient was taken to [facility]. When patient arrived his mental status started to decline and he was intubated emergently in the ER. A CAT scan of the head showed subarachnoid and subdural bleed. He was taking emergently to an angio suite for coiling of the aneurysm and later on to OR for subdural hematoma evacuation. 10/08: Remains sedated, orally intubated on mechanical ventilation. Arouses off sedation and following commands with both upper extremities earlier. Ventriculostomy in place. ICP 7, CPP mid 80s. 10/09: Remains sedated, orally intubated on mechanical ventilation. Arouses off sedation and follows commands with both upper extremities. Ventriculostomy in place. 10/10: Remains sedated, orally intubated on mechanical ventilation. Arouses off sedation and follows commands and both upper extremities. Ventriculostomy in place. ICP 5. Failed C Pap trial yesterday. 10/11: Extubated on 10/10, tolerating well. Awake and alert. Appears confused, moving all 4 extremities. Ventriculostomy discontinued today by neurosurgery 10/13: Patient has developed severe vasospasm at the left MCA territory on TCD's that was treated with IV route verapamil 10/14: patient extubated overnight. was originally following commands and neuro intact. TCDs this morning with increase LIs over yesterday, particularly Left MCA territory. On my evaluation early this morning, patient was aphasic, not moving the right side of his body, not following commands. SBP 140s at that time. net 2L negative/24h and uop almost 1L/hr at the time. I immediately bolused with 2L NS iv, placed arterial and central lines, started phenylephrine , increased SBP to goal 200 - 220 mmHg. called interventional neuroradiology and accompanied patient down personally to IR for IA verapamil again. I remained with the patient managing his hemodynamics down in IR and providing anxiolysis IV. I accompanied patient back up to [facility] where patient again was neuro intact and following commands. Sodium downtrending to 135 and urine studies and serum osms suggestive of urine sodium losses and high uop. added Florinef to mitigate sodium losses, and increased mivf to 500cc/hr to maintain euvolemia. later in the day patient decompensated requiring intubation for hyoxemia, cxr suggestive of pulmonary edema. 2d echo with evidence of EF 40%, septal hypokinesis, moderate MR. On levo, vaso, phenylephrine. difficult to get to goal SBP 200 mmHg, likely due to myocardial dysfunction. decreased goal to 180 - 200 mmHg to balance cardiac vs. neurologic goals. 10/15 Patient was discussed with Dr. Sullivan at shift change. Isuprel was initiated in effort to improve cardiac output as dobutamine not available and concerned with use of milrinone given long half life. Systolic blood pressure was relatively stable with perhaps some modest improvement from 170s to 180s for several hours after initiation. Notified when patient became abruptly hypotensive despite vasopressin, levophed 20 mcg/min, Greyson-Synephrine 300 mcg/m. He was also hypoxemic with sats in 80s despite PCV with PEEP 8 and FiO2 100%, respiratory rate in the 30s. He had decreased breath sounds bilaterally and was concerned for air trapping so removed from mechanical ventilation and bagged without improvement. Placed patient back on mechanical ventilation and provide recruitment maneuvers and increased PEEP to 12 which resulted in improvement of sats to 88% to 92%. Ordered Flolan. Discontinued isuprel and initiated epinephrine. R radial art line would not draw blood . Performed u/s guided femoral artery stick to confirm hypoxemia on ABG given poor wave form on pulse ox and PaO2 was 58. Placed new L radial art line and this resulted in ~ 30 point increase in SBP relative to prior line but patient ultimately on vasopressin, levophed 30 micrograms per minute, Greyson-Synephrine 300 micrograms per minute, epinephrine 12 mcg/min and unable to maintain target pressure (SBP in 150s). Given calcium chloride. patient with shaking movements all extremities, pupils 2mm and sluggish, no eye deviation. Rigors seemed most likely but unable to emergently rule out seizures so loaded with fosphenytoin to avoid secondary injury from seizure activity. WBC increasing and concern for HCAP so pancultured and placed on cefepime, vancomycin, azithromycin. Hydrocortisone 100 mg IV every 8 hours initiated due to concern for septic shock in a patient who has been refractory to all other above measures. Patient is to hemodynamically unstable and hypoxic for transport for neurologic imaging. Urine output has declined to 180-200 ML's per hour. Back off maintenance IV fluids to 200 ML's per hour. Bedside echo demonstrates decreased LV function with normal RV contractility and collapsible IVC suggesting ongoing maintenance fluid administration is appropriate. 10/15 additional visit: continued to deteriorate throughout the day. Seen multiple times. hypoxic on 100% fio2, flolan. required nimbex drip to maintain. repeat bedside critical care ultrasound still demonstrates severe LV dysfunction , decompressed RV, IVC more dilated than previous echo overnight, however still with respiratory variation. femoral arterial line placed with better waveform and higher pressure (likely SVR too high to allow accurate measurement of radial pressure). Pulse contour analysis without stroke volume variation, CI 3.6. SV 52mL. trialed additional albumin without improvement in hemodynamics. uop slower than before, but still significant salt wasting in the urine- sodium dropped to 125 from 132 despite already on 3% nacl infusion and aggressive sodium replacements. forced to give 23% nacl and salt tabs. declining clinically despite maximal therapy. 10/16: continues to be maximally critically ill. LV dysfunction persists. starting to get volume overloaded, but given concern for ongoing cerebral vasospasm, unable to actively diurese patient. sodium wasting persists, but uop downtrending slightly. very hypokalemic today, likely due to steroids. remains intubated, sedated, paralyzed, on flolan. CXR today appears worse with worsening airspace disease. Lactate remains slightly elevated, confirming persistent shock. 10/17: Lung infiltrates dense bilaterally, reflected in shunting and problems with oxygenation. Developed vasospasm on TCDs and required angiogram and intra- arterial verapamil again today. 10/18: SBP 160 - 170 range. FiO2 0.55. BNP > 5000. Not tolerating attempts at maintaining higher BP due to worsening heart failure. Several episodes of vasospasm. Watch daily TCDs closely. Sputum no growth. 10/19: Tmax 99.8. Currently 99. Remains on 4 vasopressors and epoprostenol 10/20: Yesterday. Returned IR for intra-arterial calcium channel jose infusion for vasospasm. Transcranial Dopplers today Still pending. Remains on significant vasopressor support. 10/21: Good response to diuresis, check BNP. TCDs pending. Heart failure remains a major problem. 10/22: CVP 21 - 22, finger tips blue, digits pale white despite high dose milrinone dilation. Greyson and vaso much reduced. Will try diltiazem gtt for digital ischemia. Urine remains > 200/hr and proximal limbs are well perfused. This digital ischemia appears to be a local phenomenon ala Raynaud's. New subcutaneous emphysema right anterior chest wall. 10/23: Old CVL removed. Fingertips remain marginal, some necrotic despite diltiazem and milrinone treatment for digital ischemia. Cardiac output > 7 liters/min and urine copious, confirming good perfusion pressure and flow. This continues to be a local phenomenon of the digits ala Raynaud's. We are trying to wean vasopressors off but are required to maintaining a cerebral perfusion pressure suitable for the treatment of aneurysmal subarachnoid bleed. Frankly, the importance of brain function eclipses fingertips. 10/24: Afebrile. Well perfused except for index finger left hand, few tips fingers right. Arms and hands warmer with resolving circumferential edema. Diltiazem and milrinone gtt continue. Greyson to 10 mics/min. 10/25: Digits are warm and well perfused except left index and right 4th fingertips; demarcated and not viable. Dry. Diltiazem and milrinone infusions continue to help reverse digital ischemia. 10/26: Forced diuresis continues and BP remains nicely elevated. Hands and digits warm aside from left index and right 4th fingertips which have demarcated. 10/27: Good response to diuretics. Perfusion pressure and documented flow excellent. Continue to wean vent. 10/28: Start SBTs. Fluid balance back toward normal. 10/29: Tolerating SBTs. Lowering sedation. Edema resolving. 10/30: Tolerating tube feeds, will taper off TPN and remove central line. Continue diuretics. 10/31: net -3L over 24h. mental status at baseline. tolerating CPAP, but does not have the mental status to protect airway. will likely need trach/peg. placement will be a problem due to lack of funding. 11/01: no changes or improvements. discussed with yesterday and she "does not want any more setbacks" and would prefer trach versus trial of extubation. I agree with her assessment. plan for trach today. placement is still a significant problem. net -2L/24h. 11/02: wbc uptrending, febrile. antonio cultured, started empiric abx today. failed SBT overnight and placed back on rate. 11/03: Tolerating CPAP today, following commands. Low-grade fever cultures pending. WBC count normal today 11/04: Remains on TPs since yesterday. Neuro exam remains stable. Follows commands weakly. Na 152 11/05: Remains off vent for 48 hours now. Sitting up in stretcher chair today. Na improved to 149. remains weak but improving 11/06: Continues to tolerate TPs well. Neuro exam unchanged. Sodium 148 today. Continues to spike intermittent fever Tmax 102.7. 11/07: Continued fevers, no leukocytosis. 11/08: Stable for replacement of bone flap. 11/09: Getting a bit excessively diuresed, will decrease lasix and convert to PO. Fingertips and toes demarcating as expected. No immediate action required except for continued diltiazem therapy. Clearly a Raynaud's type digital ischemia as peripheral perfusion and urine output indicated excellent peripheral perfusion. 11/10: Tracks with eyes today, nods to questions. Failed swallow again. 11/11: Plan for PEG, GI consulted. Bone flap replacement on hold due to blood cultures and fever. 11/12: May get PEG today, Bone flap to be replaced coming week per Dr. Perry. Afebrile no white count 11/13: Neuro exam unchanged. Na was 150 yesterday, repeat CMP pending. Left flap remains sunken 11/14: emesis overnight with ? aspiration event. no increased O2 requirement, but fever to 102.5 today. recultured. no complaints from patient. 11/15: No changes. still low suspicion for infection. Awaiting ID clearance for bone flap replacement. also awaiting placement 11/16: Placed on full ventilator support overnight for acute hypoxemic respiratory failure due to mucous plugging. Mucomyst added. Not on any sedation. Chest x-ray back to baseline-no need a bronchoscopy at this time, but will do if there is recurrent plugging. Will check sputum culture, and trach site culture 11/17: Breathing comfortably on the vent, on CPAP now. Off all sedation. We'll attempt T piece yesterday. Sodium normal 11/18: Currently tolerating TP. Patient had a few episodes of nausea vomiting. KUB shows ileus. Overnight was started on Reglan IV and when necessary Zofran. We'll keep nothing by mouth until ileus resolved. 11/19: Back on vent rate due to poor spontaneous effort. Hgb down 2 gms - looks like dilution; follow closely. VS without change. Ileus has resolved. 11/20: ABIs normal with normal pressure. Inflow satisfactory to all limbs. GI tract working well. 11/21: Tmax 99.1. Positive BM from fecal containing device. Tolerating t piece 24 hours. Tube feeds are at goal. Okay for OR from ID standpoint 11/22 currently resting in bed in no acute distress. On TP since 48 hours. Tube feeds at goal. Subjective 11/23: Resting in bed on T piece and 72 hours. Tube feeding at goals. Cleared from ID for plastics. 11/26: rapid response for massive hemoptysis. Patient rapidly reintubated through mouth and trach tube removed at same time. No bleeding from the trach stoma or above. All blood is coming from below. Bronchoscopy demonstrated large clots in both left and right mainstems. Right side clot 2 x 2 x 3 cm. Finally suctioned clear enough to inspect - no bleeding source found. Will keep on vent with PEEP 12 and heavy sedation. Plts 380,000, INR 1.0 Objective Vital Signs Date Time Temp Pulse Resp B/P (MAP) Pulse Ox O2 Delivery O2 Flow Rate FiO2 11/26/16 15:45 94 T-piece 6.00 28 11/26/16 14:44 100 19 125/75 (92) 11/26/16 12:00 98.5 Intake and Output 11/26/16 11/26/16 11/27/16 08:00 16:00 00:00 Output Total 400 ml Balance -400 ml Result Diagram: 11/26/16 1650 11/26/16 0738 Imaging Last Impressions Abdomen X-Ray 11/19/16599 Signed Impressions: Service Date/Time: Saturday, November 19, 2016 02:44 - CONCLUSION: Unchanged bowel gas pattern potentially relating to an ileus. Santos Crockett Jr., MD Chest X-Ray 11/18/16 06 Signed Impressions: Service Date/Time: Friday, November 18, 2016 05:04 - CONCLUSION: Unchanged bilateral pulmonary infiltrates. Santos Crockett Jr., MD Transcranial Doppler Study Complete 10/20/16 0600 Signed Impressions: Service Date/Time: October 07:54 - CONCLUSION: Slight interval elevation of flow velocity measurements and ratio on the left Yosvany Polk MD Liver Ultrasound 10/19/16 0000 Signed Impressions: Service Date/Time: Wednesday, October 19, 2016 11:20 - CONCLUSION: 1. Sludge filled gallbladder with thickened wall. 2. Moderate size bilateral pleural effusions and mild upper abdominal ascites. Santos Vazquez MD Cerebral Arteriogram 10/19/16 0000 Signed Impressions: Service Date/Time: Wednesday, October 19, 2016 12:47 - CONCLUSION: Uncomplicated cerebral arteriography with spasmolytic therapy as described in detail above. Yosvany Polk MD Head CT 10/17/16 0000 Signed Impressions: Service Date/Time: Monday, October 17, 2016 15:06 - CONCLUSION: Ventricles are slightly larger without ventriculostomy. Edema in the left hemisphere the brain herniating through the operative site. Remington Woodward MD FACR Infusion Non-thrombolysis 10/14/16 1103 Signed Impressions: Service Date/Time: Friday, October 14, 2016 10:21 - CONCLUSION: 1. Uncomplicated infusion for spasmolysis Harvey Moreojn MD Neck CTA 10/07/16 0000 Signed Impressions: Service Date/Time: Friday, October 07, 2016 15:03 - CONCLUSION: 1. Mild carotid bulb atherosclerotic calcification bilaterally. However, no significant stenosis is present in either internal carotid artery. 2. Paranasal sinus mucoperiosteal thickening. 3. Please refer to brain CTA report for description of the intracranial findings. Yosvany Ramirez MD Head CTA 10/07/16 0000 Signed Impressions: Service Date/Time: Friday, October 07, 2016 15:03 - CONCLUSION: 1. 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 2. Large left subdural hematoma measuring 1.3 cm in depth with a significant, 1.6 cm left to right subfalcine shift. Joni Shelton MD Objective Remarks GENERAL: 56-year-old male. Bag ventilation via trach with hemoptysis. HEAD: Status post left craniectomy. Left flap sunken, Incision healing well EYES: 3 mm bilaterally and reactive NECK: Trachea midline. 8.0 Shiley cuffed trach, filled with fresh bright red blood and clots CARDIOVASCULAR: RRR. S1, S2 no S4. RESPIRATORY: TP. Diffuse rhonchi and mobile secretions. GASTROINTESTINAL: Abdomen soft, non-tender, nondistended. BS active. No guarding. MUSCULOSKELETAL: Ischemic changes worst to left index finger tip, right 4th fingertip, and majority of R toes. Demarcating, dry. NEURO EXAM: Opens eyes and follows command, right UE weaker than left, follows commands x4. Procedures 10/13 Four-vessel cerebral angiography with verapamil treatment of vasospasm A/P Assessment and Plan Neuro/Psych Status post left frontotemporal parietal craniectomy 10/08 for evacuation subdural hematoma/duraplasty Left subdural hematoma - 1.3 cm with 1.6 shift left to right Subarachnoid hemorrhage Alvarado and Rodriguez 5, Carroll grade 4 - left P-comm status post 4 coiling 10/08 - Nimodipine completed 21 days. Initiated 10/13. - Levetiracetam 500 mg per tube q12h. - 10/13 and 10/14 and 10/17) 10/19 left MCA territory vasospasm, status post successful verapamil treatment by IR with 20 mg verapamil - 10/17 CT brain - less hemisphere edema with herniation through left craniotomy site, now improved. - Dr. Perry/neurosurgery. Plan to replace bone flap okayed by infectious disease. - Liquid oxycodone 10 mg every 4 hours, hydromorphone 0.5 mg every 4 hours when necessary pain Respiratory: Acute hypoxic Respiratory failure secondary to mucous plugging Possible healthcare associated pneumonia ARDS- resolved Noncardiogenic/neurogenic pulmonary edema- resolved. Chronic respiratory failure requiring tracheostomy -- Nebs, HOB at 30 degrees. TP today at 40%/6 L. -- Albuterol/troponin every 6 hours with albuterol aerosols every 2 hours for Dyspnea. -- Follow-up on sputum culture -- s/p Trach Dr. Sullivan/Dr. Collazo 11/01 #8 [facility] Cardiovascular: Septic and cardiogenic shock- resolved. LV dysfunction secondary to SAH - persistent, now resolved Elevated troponin- secondary to SAH, unlikely to be ACS. - resolved. Pulmonary hypertension Continue diuresis. free water 200mL per tube q6h. Echocardiogram 10/14/16 revealed EF 40-45%. Septal hypokinesis. Moderate MR. Severe pulmonary hypertension with pulmonary artery pressures estimated 61 mmHg Limited Echo 11/06: LVEF 60-65%, Trivial mitral and tricuspid regurgitation, No vegetations noted. Continue diltiazem's 90 mg by mouth every 6 hours Renal: Cerebral Salt Wasting/SIADH-resolved now hypernatremic Strict I/Os. See FEN below. Creatinine currently within normal limits -> resolved. Monitor urine output FEN/GI: Ileus Hypokalemia Elevated transaminases Hyperammonemia - Currently on Glucerna 1.5 goal 60 cc an hour - free water per tube 3 mL every 6 hours - ICU electrolyte protocol. aggressively replace potassium losses. - Lansoprazole 30 mg by tube daily for GI prophylaxis - Continue bowel regimen - Continue PEG feeding. s/p PEG 11/12/16 Heme/ID: Septic Shock- resolved. Possible HCAP New Fever, leukocytosis, staph epi bacteremia - limited Echo to evaluate vegetation-neg. ID following - Follow-up on sputum culture, trach site culture - Digital Ischemia with necrosis, conservative management - s/p Diltiazem and milrinone infusions - Digits have demarcated, allow auto amputation. Cardizem PO currently and 90 mg every 6 hours (for digital ischemia, Raynaud's) Continue bacitracin twice a day to affected areas Pertinent cultures 10/15 - blood cultures - 1 out of 4 anaerobic gram-negative cocci possibly Veillonella 10/15 - sputum - beta strep not A, strep species 10/19 cultures NG 10/21 1/4 bottles blood cultures coag negative staph. Culture 11/01. coag neg stah / bottles 11/16 sputum in trach site cultures negative s/p levofloxacin x 7 days end 11/15/16 Fluconazole discontinued per infectious disease Endocrine: Presumed Adrenal Insufficiency Discontinued fludrocortisone 10/18. Sliding-scale insulin with NovoLog -Accu-Cheks every 4 hours to maintain euglycemia MSK: PT evaluate and treat Prophylaxis: GI Prophylaxis - lansoprazole DVT Prophylaxis-- SCDs, d/c heparin subcutaneous Hemoptysis - started 11/26, bronchoscopy with bleeding from lungs. Trach site clean and dry. Reintubated through mouth. - Check fibrinogen - Hold lovenox, asa. - Stat CTA chest followed by formal angiogram if blush seen. Lines: - 10/14 right SC TLC, removed 10/22 - 10/14 right radial art line, removed 10/14 - 10/15 left radial art line, removed 10/16 - 10/22 left groin triple lumen placed, d/c 10/30 - d/c ramires. Overall impression: Massive hemoptysis from lungs, not involving trach site. Critically ill with unstable respiratory status. Ventilator dependent. Critical Care 44 mins aside from procedures Rodriguez Collazo MD Nov 26, 2016 17:53
--- NOTE | 2016-11-26 18:09 | PD.PROCEDR ---
Procedure Note Procedure DX: Massive hemoptysis OP: 1. Orotracheal intubation (33211) 2. Flexible bronchoscopy (36010) Procedure: Bag ventilated through indwelling trach tube with large blood and clots plugging tube. Versed 5 mg and rocuronium 50 mg iv. Intubated orally with 7.5 tube while removing trach tube at same time. Bronchoscope was passed through the nose and larynx was inspected; no bleeding observed. The scope was then passed through the trach stoma and the soft tissue and tracheal edge were clean with no bleeding. The scope was then passed through the orotracheal tube and large amounts of clot were encountered in the right mainstem and less in the left mainstem. Saline irrigation removed most of the clot material but I was reluctant to dislodge the clot on the posterior wall of the right mainstem. Mechanical ventilation was performed throughout and sats were maintained > 92% throughout the procedure. During the initial intubation, through large amounts of hemoptysis, it was necessary to remove a very loose, isolated right upper incisor. The surrounding teeth were all missing and I did not want to risk inadvertent aspiration of the tooth. Rodriguez Collazo MD Nov 26, 2016 18:09
--- NOTE | 2016-11-26 18:20 | RADRPT ---
EXAM DATE/TIME: 11/26/2016 17:49 [facility] COMPARISON: CHEST SINGLE AP, November 26, 2016, 15:55. INDICATIONS : Status post intubation. Evaluate for ET tube placement. MEDICAL HISTORY : Hypertension. Seizures, Subarachnoid hemmorhage SURGICAL HISTORY : Craniotomy. Ventriculostomy. ENCOUNTER: Subsequent ACUITY: 1 day PAIN SCORE: Non-responsive. LOCATION: chest FINDINGS: A tracheostomy tube has been removed and replaced with an endotracheal tube. Tip of the endotracheal tube is in good position just below level of clavicles. Significant airspace disease remains evident in both lungs. There is increased density in the right m idlung and in the left base. Lungs are hyperaerated. CONCLUSION: 1. Satisfactory position of endotracheal tube. 2. COPD. 3. Persistent bilateral airspace disease. Nasir Amanda MD on November 26, 2016 at 18:18 Board Certified Radiologist. This report was verified electronically.
[2016-11-26] MEDS ORDERED: CISATRACURIUM BESYLATE 20 MG/10 ML VIAL IV PUSH ONE (18:45)
[2016-11-26] MEDS ORDERED: PROPOFOL 1000 MG/100 ML INJ 100 ML IV PRN (18:45)
[2016-11-26] MEDS: fentaNYL DRIP 250 ML IV PRN (19:20)
[2016-11-26] MEDS: CISATRACURIUM INJ 100 MG in SODIUM CHLOR 0.9% 250 ML INJ 250 ML IV PRN (19:25)
[2016-11-26 19:26] LABS: APTT (PATIENT) 28.3 SEC (24.3-30.1)
[2016-11-26] MEDS ORDERED: ATROPINE SULFATE 1 MG/10 ML SYRINGE ONE (20:06)
[2016-11-26] MEDS ORDERED: EPINEPHrine HCL (1:10,000) 1 MG/10 ML SYRINGE ONE (20:06)
[2016-11-26] MEDS ORDERED: LIDOCAINE HCL 2% 100 MG/5 ML SYRINGE ONE (20:07)
[2016-11-26] MEDS ORDERED: IOHEXOL 350 MG/ML 10 ML VIAL (for RAD DIAG) IVCONTRAST ONE (20:20)
[2016-11-26] MEDS: MELATONIN 5 MG TAB PO SCH (21:00)
--- NOTE | 2016-11-26 21:12 | RADRPT ---
EXAM DATE/TIME: 11/26/2016 20:18 [place] COMPARISON: No previous studies available for comparison. INDICATIONS : Hemoptysis. IV CONTRAST: 96 cc Omnipaque 350 (iohexol) IV RADIATION DOSE: 23.36 CTDIvol (mGy) MEDICAL HISTORY : Seizures. SURGICAL HISTORY : None. ENCOUNTER: Initial ACUITY: 1 day PAIN SCALE: Non-responsive LOCATION: Bilateral chest TECHNIQUE: Volumetric scanning of the chest was performed using a pulmonary embolism protocol MIP images were re constructed. Using automated exposure control and adjustment of the mA and/or kV according to patien t size, radiation dose was kept as low as reasonably achievable to obtain optimal diagnostic quality images. DICOM format image data is available electronically for review and comparison. Follow-up recommendations for detected pulmonary nodules are based at a minimum on nodule size and pa tient risk factors according to Fleischner Society Guidelines. FINDINGS: Bronchial arteries: The right bronchial artery is identified originating from the right side of the proximal descending a sidney at the T6 vertebral body level. The vessel courses posterior to the trachea and down the right m ainstem bronchus. The central right bronchial tree is completely full of material which extends into the central lung zone. The left bronchial artery cannot be clearly identified.. LUNGS: Significant consolidation is identified anteriorly within the right upper lobe. Consolidated infiltra te is also present in the right lower lobe. There is diffuse tree in bud pattern throughout the left lower lobe. Emphysematous lung changes and septal thickening is present throughout. PLEURAE: Small right pleural effusion is identified. MEDIASTINUM: There is good visualization of the great vessels of the middle mediastinum. No evidence of mediastin al or hilar adenopathy/mass. MUSCULOSKELETAL: Unremarkable. MISCELLANEOUS: The visualized upper abdominal organs demonstrate no acute abnormality. CONCLUSION: 1. Extensive filling defects within the right central bronchial tree characteristic of endobronchial hemorrhage. 2. Consolidating airspace disease in the right upper lobe and right lower lobe characteristic of hemo rrhage and post obstructive lung consolidation. 3. Right bronchial artery is identified extending to the central right bronchial region 4. Advanced COPD. Nasir Amanda MD on November 26, 2016 at 20:48 Board Certified Radiologist. This report was verified electronically.
[2016-11-26 21:23] LABS: HEMATOCRIT 23.8 % (39.0-51.0); REVIEW FLAG FINAL
[2016-11-26 22:53] LABS: BLOOD GAS CARBOXYHEMOGLOBIN 0.8 % (0-4); BLOOD GAS HCO3 28 mmol/L (22-26); BLOOD GAS METHEMOGLOBIN 0.8 % (0-2); BLOOD GAS O2 HGB SATURATION 98 % (90-100); BLOOD GAS OXYGEN CONTENT 11.4 Vol % (12.0-20.0); BLOOD GAS PCO2 55 mmHg (38-42); BLOOD GAS PO2 362 mmHg (61-120); BLOOD GAS TOTAL HGB 7.6 G/DL (12.0-16.0); TEMP CORR TO 98.6
[2016-11-26 22:54] LABS: CRITICAL VALUE YES; DRAW SITE LT BRACHIAL; FIO2 80 %; NUMBER OF ARTERIAL PUNCTURES 1; OXYGEN DEVICE VENTILATOR; STAT NO; VENT SETTINGS 16/500/IT0.9/12PEEP
[2016-11-26] MEDS ORDERED: LACTATED RINGER'S 1000 ML INJ 1,000 ML IV SCH (23:00)
[2016-11-27] VITALS (13 sets, daily range): BP systolic 91–122; BP diastolic 46–78; PULSE 100–117; RESP 20; TEMP 97.6–98.8; O2SAT 98–100
[2016-11-27] MEDS ORDERED: MIDAZOLAM HCL 2 MG/2 ML VIAL IV PUSH PRN (01:45)
[2016-11-27] MEDS ORDERED: SODIUM CHLORID 0.9% 500 ML INJ 500 ML IV SCH (01:45)
[2016-11-27] MEDS: METOCLOPRAMIDE HCL 10 MG/2 ML VIAL IV PUSH SCH ×3 (01:50→17:56)
[2016-11-27] MEDS: MIDAZOLAM 100 MG/100 ML INJ 100 ML IV PRN ×2 (02:28→21:50)
[2016-11-27] MEDS: LACTATED RINGER'S 1000 ML INJ 1,000 ML IV SCH ×2 (03:25→13:02)
[2016-11-27] MEDS: CISATRACURIUM INJ 100 MG in SODIUM CHLOR 0.9% 250 ML INJ 250 ML IV PRN ×4 (03:27→18:37)
[2016-11-27 04:29] LABS: HEMATOCRIT 23.8 % (39.0-51.0); REVIEW FLAG FINAL
[2016-11-27 04:40] LABS: BLOOD GAS CARBOXYHEMOGLOBIN 1.1 % (0-4); BLOOD GAS HCO3 26 mmol/L (22-26); BLOOD GAS METHEMOGLOBIN 0.9 % (0-2); BLOOD GAS O2 HGB SATURATION 97 % (90-100); BLOOD GAS OXYGEN CONTENT 10.5 Vol % (12.0-20.0); BLOOD GAS PCO2 50 mmHg (38-42); BLOOD GAS PO2 146 mmHg (61-120); BLOOD GAS TOTAL HGB 7.5 G/DL (12.0-16.0); CRITICAL VALUE NO; OXYGEN DEVICE VENTILATOR; TEMP CORR TO 98.6
[2016-11-27 04:41] LABS: DRAW SITE LT BRACHIAL; FIO2 40 %; NUMBER OF ARTERIAL PUNCTURES 1; STAT NO; VENT SETTINGS PRVC/AC
[2016-11-27] MEDS: DILTIAZEM HCL 90 MG TAB PO SCH ×4 (05:57→17:56)
[2016-11-27] MEDS: CHLORHEXIDINE 0.12% (ORAL KIT) 15 ML CUP MT SCH ×4 (08:00→20:24)
[2016-11-27] MEDS: RESP: ALBUTEROL 2.5 MG/IPRATROPIUM 0.5 MG NEB (SCH) NEB ×2 (08:28→11:55)
--- NOTE | 2016-11-27 08:38 | HHI.CCPN ---
Subjective Remarks/Hospital Course 10/07: 56-year-old male presents with intracranial bleed. Patient was transferred from [facility] at [facility]. As per the paramedics and the nurse who assisted the patient said that patient earlier this morning was coming down the stairs when he started feeling some left-sided weakness and numbness. He called 911 and by the time EMS arrived they detected some deficit and called a stroke alert. Patient was taken to [facility]. When patient arrived his mental status started to decline and he was intubated emergently in the ER. A CAT scan of the head showed subarachnoid and subdural bleed. He was taking emergently to an angio suite for coiling of the aneurysm and later on to OR for subdural hematoma evacuation. 10/08: Remains sedated, orally intubated on mechanical ventilation. Arouses off sedation and following commands with both upper extremities earlier. Ventriculostomy in place. ICP 7, CPP mid 80s. 10/09: Remains sedated, orally intubated on mechanical ventilation. Arouses off sedation and follows commands with both upper extremities. Ventriculostomy in place. 10/10: Remains sedated, orally intubated on mechanical ventilation. Arouses off sedation and follows commands and both upper extremities. Ventriculostomy in place. ICP 5. Failed C Pap trial yesterday. 10/11: Extubated on 10/10, tolerating well. Awake and alert. Appears confused, moving all 4 extremities. Ventriculostomy discontinued today by neurosurgery 10/13: Patient has developed severe vasospasm at the left MCA territory on TCD's that was treated with IV route verapamil 10/14: patient extubated overnight. was originally following commands and neuro intact. TCDs this morning with increase LIs over yesterday, particularly Left MCA territory. On my evaluation early this morning, patient was aphasic, not moving the right side of his body, not following commands. SBP 140s at that time. net 2L negative/24h and uop almost 1L/hr at the time. I immediately bolused with 2L NS iv, placed arterial and central lines, started phenylephrine , increased SBP to goal 200 - 220 mmHg. called interventional neuroradiology and accompanied patient down personally to IR for IA verapamil again. I remained with the patient managing his hemodynamics down in IR and providing anxiolysis IV. I accompanied patient back up to [facility] where patient again was neuro intact and following commands. Sodium downtrending to 135 and urine studies and serum osms suggestive of urine sodium losses and high uop. added Florinef to mitigate sodium losses, and increased mivf to 500cc/hr to maintain euvolemia. later in the day patient decompensated requiring intubation for hyoxemia, cxr suggestive of pulmonary edema. 2d echo with evidence of EF 40%, septal hypokinesis, moderate MR. On levo, vaso, phenylephrine. difficult to get to goal SBP 200 mmHg, likely due to myocardial dysfunction. decreased goal to 180 - 200 mmHg to balance cardiac vs. neurologic goals. 10/15 Patient was discussed with Dr. Sullivan at shift change. Isuprel was initiated in effort to improve cardiac output as dobutamine not available and concerned with use of milrinone given long half life. Systolic blood pressure was relatively stable with perhaps some modest improvement from 170s to 180s for several hours after initiation. Notified when patient became abruptly hypotensive despite vasopressin, levophed 20 mcg/min, Greyson-Synephrine 300 mcg/m. He was also hypoxemic with sats in 80s despite PCV with PEEP 8 and FiO2 100%, respiratory rate in the 30s. He had decreased breath sounds bilaterally and was concerned for air trapping so removed from mechanical ventilation and bagged without improvement. Placed patient back on mechanical ventilation and provide recruitment maneuvers and increased PEEP to 12 which resulted in improvement of sats to 88% to 92%. Ordered Flolan. Discontinued isuprel and initiated epinephrine. R radial art line would not draw blood . Performed u/s guided femoral artery stick to confirm hypoxemia on ABG given poor wave form on pulse ox and PaO2 was 58. Placed new L radial art line and this resulted in ~ 30 point increase in SBP relative to prior line but patient ultimately on vasopressin, levophed 30 micrograms per minute, Greyson-Synephrine 300 micrograms per minute, epinephrine 12 mcg/min and unable to maintain target pressure (SBP in 150s). Given calcium chloride. patient with shaking movements all extremities, pupils 2mm and sluggish, no eye deviation. Rigors seemed most likely but unable to emergently rule out seizures so loaded with fosphenytoin to avoid secondary injury from seizure activity. WBC increasing and concern for HCAP so pancultured and placed on cefepime, vancomycin, azithromycin. Hydrocortisone 100 mg IV every 8 hours initiated due to concern for septic shock in a patient who has been refractory to all other above measures. Patient is to hemodynamically unstable and hypoxic for transport for neurologic imaging. Urine output has declined to 180-200 ML's per hour. Back off maintenance IV fluids to 200 ML's per hour. Bedside echo demonstrates decreased LV function with normal RV contractility and collapsible IVC suggesting ongoing maintenance fluid administration is appropriate. 10/15 additional visit: continued to deteriorate throughout the day. Seen multiple times. hypoxic on 100% fio2, flolan. required nimbex drip to maintain. repeat bedside critical care ultrasound still demonstrates severe LV dysfunction , decompressed RV, IVC more dilated than previous echo overnight, however still with respiratory variation. femoral arterial line placed with better waveform and higher pressure (likely SVR too high to allow accurate measurement of radial pressure). Pulse contour analysis without stroke volume variation, CI 3.6. SV 52mL. trialed additional albumin without improvement in hemodynamics. uop slower than before, but still significant salt wasting in the urine- sodium dropped to 125 from 132 despite already on 3% nacl infusion and aggressive sodium replacements. forced to give 23% nacl and salt tabs. declining clinically despite maximal therapy. 10/16: continues to be maximally critically ill. LV dysfunction persists. starting to get volume overloaded, but given concern for ongoing cerebral vasospasm, unable to actively diurese patient. sodium wasting persists, but uop downtrending slightly. very hypokalemic today, likely due to steroids. remains intubated, sedated, paralyzed, on flolan. CXR today appears worse with worsening airspace disease. Lactate remains slightly elevated, confirming persistent shock. 10/17: Lung infiltrates dense bilaterally, reflected in shunting and problems with oxygenation. Developed vasospasm on TCDs and required angiogram and intra- arterial verapamil again today. 10/18: SBP 160 - 170 range. FiO2 0.55. BNP > 5000. Not tolerating attempts at maintaining higher BP due to worsening heart failure. Several episodes of vasospasm. Watch daily TCDs closely. Sputum no growth. 10/19: Tmax 99.8. Currently 99. Remains on 4 vasopressors and epoprostenol 10/20: Yesterday. Returned IR for intra-arterial calcium channel jose infusion for vasospasm. Transcranial Dopplers today Still pending. Remains on significant vasopressor support. 10/21: Good response to diuresis, check BNP. TCDs pending. Heart failure remains a major problem. 10/22: CVP 21 - 22, finger tips blue, digits pale white despite high dose milrinone dilation. Greyson and vaso much reduced. Will try diltiazem gtt for digital ischemia. Urine remains > 200/hr and proximal limbs are well perfused. This digital ischemia appears to be a local phenomenon ala Raynaud's. New subcutaneous emphysema right anterior chest wall. 10/23: Old CVL removed. Fingertips remain marginal, some necrotic despite diltiazem and milrinone treatment for digital ischemia. Cardiac output > 7 liters/min and urine copious, confirming good perfusion pressure and flow. This continues to be a local phenomenon of the digits ala Raynaud's. We are trying to wean vasopressors off but are required to maintaining a cerebral perfusion pressure suitable for the treatment of aneurysmal subarachnoid bleed. Frankly, the importance of brain function eclipses fingertips. 10/24: Afebrile. Well perfused except for index finger left hand, few tips fingers right. Arms and hands warmer with resolving circumferential edema. Diltiazem and milrinone gtt continue. Greyson to 10 mics/min. 10/25: Digits are warm and well perfused except left index and right 4th fingertips; demarcated and not viable. Dry. Diltiazem and milrinone infusions continue to help reverse digital ischemia. 10/26: Forced diuresis continues and BP remains nicely elevated. Hands and digits warm aside from left index and right 4th fingertips which have demarcated. 10/27: Good response to diuretics. Perfusion pressure and documented flow excellent. Continue to wean vent. 10/28: Start SBTs. Fluid balance back toward normal. 10/29: Tolerating SBTs. Lowering sedation. Edema resolving. 10/30: Tolerating tube feeds, will taper off TPN and remove central line. Continue diuretics. 10/31: net -3L over 24h. mental status at baseline. tolerating CPAP, but does not have the mental status to protect airway. will likely need trach/peg. placement will be a problem due to lack of funding. 11/01: no changes or improvements. discussed with yesterday and she "does not want any more setbacks" and would prefer trach versus trial of extubation. I agree with her assessment. plan for trach today. placement is still a significant problem. net -2L/24h. 11/02: wbc uptrending, febrile. antonio cultured, started empiric abx today. failed SBT overnight and placed back on rate. 11/03: Tolerating CPAP today, following commands. Low-grade fever cultures pending. WBC count normal today 11/04: Remains on TPs since yesterday. Neuro exam remains stable. Follows commands weakly. Na 152 11/05: Remains off vent for 48 hours now. Sitting up in stretcher chair today. Na improved to 149. remains weak but improving 11/06: Continues to tolerate TPs well. Neuro exam unchanged. Sodium 148 today. Continues to spike intermittent fever Tmax 102.7. 11/07: Continued fevers, no leukocytosis. 11/08: Stable for replacement of bone flap. 11/09: Getting a bit excessively diuresed, will decrease lasix and convert to PO. Fingertips and toes demarcating as expected. No immediate action required except for continued diltiazem therapy. Clearly a Raynaud's type digital ischemia as peripheral perfusion and urine output indicated excellent peripheral perfusion. 11/10: Tracks with eyes today, nods to questions. Failed swallow again. 11/11: Plan for PEG, GI consulted. Bone flap replacement on hold due to blood cultures and fever. 11/12: May get PEG today, Bone flap to be replaced coming week per Dr. Perry. Afebrile no white count 11/13: Neuro exam unchanged. Na was 150 yesterday, repeat CMP pending. Left flap remains sunken 11/14: emesis overnight with ? aspiration event. no increased O2 requirement, but fever to 102.5 today. recultured. no complaints from patient. 11/15: No changes. still low suspicion for infection. Awaiting ID clearance for bone flap replacement. also awaiting placement 11/16: Placed on full ventilator support overnight for acute hypoxemic respiratory failure due to mucous plugging. Mucomyst added. Not on any sedation. Chest x-ray back to baseline-no need a bronchoscopy at this time, but will do if there is recurrent plugging. Will check sputum culture, and trach site culture 11/17: Breathing comfortably on the vent, on CPAP now. Off all sedation. We'll attempt T piece yesterday. Sodium normal 11/18: Currently tolerating TP. Patient had a few episodes of nausea vomiting. KUB shows ileus. Overnight was started on Reglan IV and when necessary Zofran. We'll keep nothing by mouth until ileus resolved. 11/19: Back on vent rate due to poor spontaneous effort. Hgb down 2 gms - looks like dilution; follow closely. VS without change. Ileus has resolved. 11/20: ABIs normal with normal pressure. Inflow satisfactory to all limbs. GI tract working well. 11/21: Tmax 99.1. Positive BM from fecal containing device. Tolerating t piece 24 hours. Tube feeds are at goal. Okay for OR from ID standpoint 11/22 currently resting in bed in no acute distress. On TP since 48 hours. Tube feeds at goal. Subjective 11/23: Resting in bed on T piece and 72 hours. Tube feeding at goals. Cleared from ID for plastics. 11/26: rapid response for massive hemoptysis. Patient rapidly reintubated through mouth and trach tube removed at same time. No bleeding from the trach stoma or above. All blood is coming from below. Bronchoscopy demonstrated large clots in both left and right mainstems. Right side clot 2 x 2 x 3 cm. Finally suctioned clear enough to inspect - no bleeding source found. Will keep on vent with PEEP 12 and heavy sedation. Plts 380,000, INR 1.0 11/27: CTA reviewed. He appears to bee bleeding from the anterior segment of the right upper lobe, which is displaced inferiorly by apical bullous disease. Objective Vital Signs Date Time Temp Pulse Resp B/P (MAP) Pulse Ox O2 Delivery O2 Flow Rate FiO2 11/27/16 08:21 100 40 11/27/16 04:00 98.8 117 20 91/65 (74) 11/26/16 19:00 Mechanical Ventilator 11/26/16 15:45 6.00 Intake and Output 11/27/16 11/27/16 11/28/16 08:00 16:00 00:00 Intake Total 720 ml Output Total 900 ml Balance -180 ml Result Diagram: 11/27/16 0402 11/26/16 0738 Other Results Laboratory Tests Test 11/26/16 22:30 11/27/16 04:24 Blood Gas Puncture Site LT BRACHIAL LT BRACHIAL Blood Gas Patient Temperature 98.6 98.6 Blood Gas HCO3 28 mmol/L (22-26) 26 mmol/L (22-26) Blood Gas Base Excess 2.0 mmol/L (-2-2) 1.0 mmol/L (-2-2) Blood Gas Oxygen Saturation 98 % (90-100) 97 % (90-100) Arterial Blood pH 7.32 (7.380-7.420) 7.34 (7.380-7.420) Arterial Blood Partial Pressure CO2 55 mmHg (38-42) 50 mmHg (38-42) Arterial Blood Partial Pressure O2 362 mmHg (61-120) 146 mmHg (61-120) Arterial Blood Oxygen Content 11.4 Vol % (12.0-20.0) 10.5 Vol % (12.0-20.0) Arterial Blood Carboxyhemoglobin 0.8 % (0-4) 1.1 % (0-4) Arterial Blood Methemoglobin 0.8 % (0-2) 0.9 % (0-2) Blood Gas Hemoglobin 7.6 G/DL (12.0-16.0) 7.5 G/DL (12.0-16.0) Oxygen Delivery Device VENTILATOR VENTILATOR Blood Gas Ventilator Setting 16/500/IT0.9/12PEEP PRVC/AC Blood Gas Inspired Oxygen 80 % 40 % Imaging Last Impressions Abdomen X-Ray 11/19/16599 Signed Impressions: Service Date/Time: Saturday, November 19, 2016 02:44 - CONCLUSION: Unchanged bowel gas pattern potentially relating to an ileus. Santos Crockett Jr., MD Chest X-Ray 11/18/16599 Signed Impressions: Service Date/Time: Friday, November 18, 2016 05:04 - CONCLUSION: Unchanged bilateral pulmonary infiltrates. Santos Crockett Jr., MD Transcranial Doppler Study Complete 10/20/16599 Signed Impressions: Service Date/Time: October 07:54 - CONCLUSION: Slight interval elevation of flow velocity measurements and ratio on the left Yosvany Polk MD Liver Ultrasound 10/19/16 Signed Impressions: Service Date/Time: Wednesday, October 19, 2016 11:20 - CONCLUSION: 1. Sludge filled gallbladder with thickened wall. 2. Moderate size bilateral pleural effusions and mild upper abdominal ascites. Santos Vazquez MD Cerebral Arteriogram 10/19/16 Signed Impressions: Service Date/Time: Wednesday, October 19, 2016 12:47 - CONCLUSION: Uncomplicated cerebral arteriography with spasmolytic therapy as described in detail above. Yosvany Polk MD Head CT 10/17/16 0000 Signed Impressions: Service Date/Time: Monday, October 17, 2016 15:06 - CONCLUSION: Ventricles are slightly larger without ventriculostomy. Edema in the left hemisphere the brain herniating through the operative site. Remington Woodward MD FACR Infusion Non-thrombolysis 10/14/16 1103 Signed Impressions: Service Date/Time: Friday, October 14, 2016 10:21 - CONCLUSION: 1. Uncomplicated infusion for spasmolysis Harvey Morejon MD Neck CTA 10/07/16 0000 Signed Impressions: Service Date/Time: Friday, October 07, 2016 15:03 - CONCLUSION: 1. Mild carotid bulb atherosclerotic calcification bilaterally. However, no significant stenosis is present in either internal carotid artery. 2. Paranasal sinus mucoperiosteal thickening. 3. Please refer to brain CTA report for description of the intracranial findings. Yosvany Ramirez MD Head CTA 10/07/16 0000 Signed Impressions: Service Date/Time: Friday, October 07, 2016 15:03 - CONCLUSION: 1. 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 2. Large left subdural hematoma measuring 1.3 cm in depth with a significant, 1.6 cm left to right subfalcine shift. Joni Shelton MD Objective Remarks GENERAL: 56-year-old male. Bag ventilation via trach with hemoptysis. HEAD: Status post left craniectomy. Left flap sunken, Incision healing well EYES: 3 mm bilaterally and reactive NECK: Trachea midline. 8.0 Shiley cuffed trach, filled with fresh bright red blood and clots CARDIOVASCULAR: RRR. S1, S2 no S4. RESPIRATORY: TP. Diffuse rhonchi and mobile secretions. GASTROINTESTINAL: Abdomen soft, non-tender, nondistended. BS active. No guarding. MUSCULOSKELETAL: Ischemic changes worst to left index finger tip, right 4th fingertip, and majority of R toes. Demarcating, dry. NEURO EXAM: Opens eyes and follows command, right UE weaker than left, follows commands x4. Procedures 10/13 Four-vessel cerebral angiography with verapamil treatment of vasospasm A/P Assessment and Plan Neuro/Psych Status post left frontotemporal parietal craniectomy 10/08 for evacuation subdural hematoma/duraplasty Left subdural hematoma - 1.3 cm with 1.6 shift left to right Subarachnoid hemorrhage Alvarado and Rodriguez 5, Carroll grade 4 - left P-comm status post 4 coiling 10/08 - Nimodipine completed 21 days. Initiated 10/13. - Levetiracetam 500 mg per tube q12h. - 10/13 and 10/14 and 10/17) 10/19 left MCA territory vasospasm, status post successful verapamil treatment by IR with 20 mg verapamil - 10/17 CT brain - less hemisphere edema with herniation through left craniotomy site, now improved. - Dr. Perry/neurosurgery. Plan to replace bone flap okayed by infectious disease. - Liquid oxycodone 10 mg every 4 hours, hydromorphone 0.5 mg every 4 hours when necessary pain Respiratory: Acute hypoxic Respiratory failure secondary to mucous plugging Possible healthcare associated pneumonia ARDS- resolved Noncardiogenic/neurogenic pulmonary edema- resolved. Chronic respiratory failure requiring tracheostomy -- Nebs, HOB at 30 degrees. TP today at 40%/6 L. -- Albuterol/troponin every 6 hours with albuterol aerosols every 2 hours for Dyspnea. -- Follow-up on sputum culture -- s/p Trach Dr. Sullivan/Dr. Collazo 11/01 #8 [facility] Cardiovascular: Septic and cardiogenic shock- resolved. LV dysfunction secondary to SAH - persistent, now resolved Elevated troponin- secondary to SAH, unlikely to be ACS. - resolved. Pulmonary hypertension Continue diuresis. free water 200mL per tube q6h. Echocardiogram 10/14/16 revealed EF 40-45%. Septal hypokinesis. Moderate MR. Severe pulmonary hypertension with pulmonary artery pressures estimated 61 mmHg Limited Echo 11/06: LVEF 60-65%, Trivial mitral and tricuspid regurgitation, No vegetations noted. Continue diltiazem's 90 mg by mouth every 6 hours Renal: Cerebral Salt Wasting/SIADH-resolved now hypernatremic Strict I/Os. See FEN below. Creatinine currently within normal limits -> resolved. Monitor urine output FEN/GI: Ileus Hypokalemia Elevated transaminases Hyperammonemia - Currently on Glucerna 1.5 goal 60 cc an hour - free water per tube 3 mL every 6 hours - ICU electrolyte protocol. aggressively replace potassium losses. - Lansoprazole 30 mg by tube daily for GI prophylaxis - Continue bowel regimen - Continue PEG feeding. s/p PEG 11/12/16 Heme/ID: Septic Shock- resolved. Possible HCAP New Fever, leukocytosis, staph epi bacteremia - limited Echo to evaluate vegetation-neg. ID following - Follow-up on sputum culture, trach site culture - Digital Ischemia with necrosis, conservative management - s/p Diltiazem and milrinone infusions - Digits have demarcated, allow auto amputation. Cardizem PO currently and 90 mg every 6 hours (for digital ischemia, Raynaud's) Continue bacitracin twice a day to affected areas Pertinent cultures 10/15 - blood cultures - 1 out of 4 anaerobic gram-negative cocci possibly Veillonella 10/15 - sputum - beta strep not A, strep species 10/19 cultures NG 10/21 1/ bottles blood cultures coag negative staph. Culture 11/01. coag neg stah / bottles 11/16 sputum in trach site cultures negative s/p levofloxacin x 7 days end 11/15/16 Fluconazole discontinued per infectious disease Endocrine: Presumed Adrenal Insufficiency Discontinued fludrocortisone 10/18. Sliding-scale insulin with NovoLog -Accu-Cheks every 4 hours to maintain euglycemia MSK: PT evaluate and treat Prophylaxis: GI Prophylaxis - lansoprazole DVT Prophylaxis-- SCDs, d/c heparin subcutaneous Hemoptysis - started 11/26, bronchoscopy with bleeding from lungs. Trach site clean and dry. Reintubated through mouth. - Check fibrinogen - Hold lovenox, asa. - Stat CTA chest followed by formal angiogram if blush seen. Lines: - 10/14 right SC TLC, removed 10/22 - 10/14 right radial art line, removed 10/14 - 10/15 left radial art line, removed 10/16 - 10/22 left groin triple lumen placed, d/c 10/30 - d/c ramires. Overall impression: Massive hemoptysis from lungs has ceased. It is not involving trach site. Critically ill with unstable respiratory status. Ventilator dependent. May require embolization. Critical Care 38 mins aside from procedures Rodriguez Collazo MD Nov 27, 2016 08:38
[2016-11-27] MEDS: LACTOBACILLUS ACIDOPHILUS TAB PO SCH ×3 (08:59→17:56)
[2016-11-27] MEDS: levETIRAcetam 500 MG/5 ML UDC NG SCH ×2 (08:59→20:24)
[2016-11-27] MEDS: LANSOPRAZOLE SOLUTAB 30 MG TAB NG SCH (08:59)
[2016-11-27] MEDS: ARTIFICIAL TEARS OPTH SOLN 15 ML BTL EACH EYE SCH ×3 (09:00→17:57)
[2016-11-27] MEDS: POVIDONE IODINE 10% OINT 30 GM TUBE TOPICAL SCH (09:00)
[2016-11-27] MEDS: BENEPROTEIN POWDER 1 PACK G-TUBE SCH ×6 (09:00→17:57)
[2016-11-27] MEDS: SODIUM CHLORIDE 0.9% FLUSH 10 ML FLUSH IV FLUSH SCH ×2 (09:00→20:24)
[2016-11-27] MEDS: FUROSEMIDE 40 MG/5 ML UNIT DOSE CUP NG SCH (09:00)
[2016-11-27] MEDS: BACITRACIN TOP OINT 15 GM TUBE TOPICAL SCH ×2 (09:00→20:25)
[2016-11-27 11:04] LABS: HEMATOCRIT 25.3 % (39.0-51.0); REVIEW FLAG FINAL
--- NOTE | 2016-11-27 12:08 | HHI.PR ---
Subjective Remarks Significant hemoptysis yesterday bronchscopy dine by Dr Payan trach removed now with ET TUBE Objective Vital Signs Date Time Temp Pulse Resp B/P (MAP) Pulse Ox O2 Delivery O2 Flow Rate FiO2 11/27/16 12:00 114 11/27/16 11:51 100 40 11/27/16 08:21 100 40 11/27/16 08:00 97.6 108 20 102/78 (86) 100 11/27/16 08:00 108 11/27/16 04:14 100 40 11/27/16 04:00 98.8 117 20 91/65 (74) 100 11/27/16 00:02 100 40 11/27/16 00:00 98.7 104 20 94/69 (77) 100 11/26/16 22:54 100 50 11/26/16 20:35 100 80 11/26/16 20:10 100 100 11/26/16 20:00 121 11/26/16 20:00 98.4 121 20 134/95 (108) 97 11/26/16 19:00 100 Mechanical Ventilator 100 11/26/16 18:00 100 Mechanical Ventilator 100 11/26/16 17:36 100 100 11/26/16 17:10 100 11/26/16 16:30 98.8 101 24 115/61 (79) 94 11/26/16 15:45 94 T-piece 6.00 28 11/26/16 14:44 100 19 125/75 (92) 94 11/26/16 14:10 76 11/26/16 14:10 T-Piece 6.00 28 Humidified I/O 11/26/16 11/26/16 11/26/16 11/27/16 11/27/16 11/27/16 07:00 15:00 23:00 07:00 15:00 23:00 Intake Total 1391 ml 720 ml Output Total 400 ml 1150 ml 900 ml 0 ml Balance -400 ml 241 ml -180 ml 0 ml Intake Oral 0 ml IV Total 27 ml Tube Feeding 1264 ml 320 ml Other 100 ml 400 ml Output Urine Total 400 ml 1000 ml 750 ml Stool Total 150 ml 150 ml Tube Feeding Residual Discard 0 ml Result Diagram: 11/27/16 0950 11/26/16 0738 Objective Remarks GENERAL: SKIN: Warm and dry. HEAD: Atraumatic. Normocephalic. EYES: Pupils equal and round. No scleral icterus. No injection or drainage. ENT: No nasal bleeding or discharge. Mucous membranes pink and moist. NECK: Trachea midline. No JVD. CARDIOVASCULAR: Regular rate and rhythm. RESPIRATORY: No accessory muscle use. Clear to auscultation. Breath sounds equal bilaterally. TRACHEOSTOMY IN PLACE GASTROINTESTINAL: Abdomen soft, non-tender, nondistended. Hepatic and splenic margins not palpable. MUSCULOSKELETAL: Extremities without clubbing, cyanosis, or edema. No obvious deformities. NEUROLOGICAL: Awake and alert. No obvious cranial nerve deficits. Motor grossly within normal limits. Five out of 5 muscle strength in the arms and legs. Normal speech. PSYCHIATRIC: Appropriate mood and affect; insight and judgment normal. Assessment and Plan Assessment and Plan RESP FAILURE, ON VENT SUPPORT S/P IC BLEED PLAN VENT SUPPORT PULMONARY TOILET REMOVE TRACH WHEN POSSIBLE Katie Wilson MD Nov 27, 2016 12:08
[2016-11-27] MEDS: MELATONIN 5 MG TAB PO SCH (20:24)
[2016-11-27 21:48] LABS: HEMATOCRIT 24.1 % (39.0-51.0); REVIEW FLAG FINAL
[2016-11-28] VITALS (13 sets, daily range): BP systolic 97–127; BP diastolic 55–72; PULSE 87–110; RESP 20; TEMP 97.4–99.2; O2SAT 97–100
[2016-11-28] MEDS: METOCLOPRAMIDE HCL 10 MG/2 ML VIAL IV PUSH SCH ×3 (00:07→17:41)
[2016-11-28] MEDS: CHLORHEXIDINE GLUCONATE 2 % 1 PACK (2 CLOTHS) TOP SCH (00:07)
[2016-11-28] MEDS: DILTIAZEM HCL 90 MG TAB PO SCH ×4 (00:07→17:41)
[2016-11-28] MEDS: LACTATED RINGER'S 1000 ML INJ 1,000 ML IV SCH (00:07)
[2016-11-28] MEDS: CISATRACURIUM INJ 100 MG in SODIUM CHLOR 0.9% 250 ML INJ 250 ML IV PRN ×2 (00:08→06:25)
[2016-11-28 04:10] LABS: HEMATOCRIT 21.6 % (39.0-51.0); REVIEW FLAG FINAL
[2016-11-28 04:30] LABS: BLOOD GAS BASE EXCESS 3.9 mmol/L (-2-2); BLOOD GAS CARBOXYHEMOGLOBIN 1.7 % (0-4); BLOOD GAS HCO3 28 mmol/L (22-26); BLOOD GAS METHEMOGLOBIN 0.7 % (0-2); BLOOD GAS O2 HGB SATURATION 97 % (90-100); BLOOD GAS OXYGEN CONTENT 9.7 Vol % (12.0-20.0); BLOOD GAS PCO2 40 mmHg (38-42); BLOOD GAS PO2 137 mmHg (61-120); BLOOD GAS TOTAL HGB 6.9 G/DL (12.0-16.0); CRITICAL VALUE YES; DRAW SITE RT FEMORAL; FIO2 40 %; NUMBER OF ARTERIAL PUNCTURES 1; OXYGEN DEVICE VENTILATOR; STAT NO; TEMP CORR TO 98.6; VENT SETTINGS 20/500/IT0.9/12PEEP
[2016-11-28 04:36] LABS: BICARBONATE 25.8 MEQ/L (21.0-32.0)
[2016-11-28] MEDS: fentaNYL DRIP 250 ML IV PRN ×2 (06:25→08:02)
[2016-11-28] MEDS: CHLORHEXIDINE 0.12% (ORAL KIT) 15 ML CUP MT SCH ×3 (08:00→20:00)
[2016-11-28] MEDS: LACTOBACILLUS ACIDOPHILUS TAB PO SCH ×3 (08:01→17:41)
[2016-11-28] MEDS: levETIRAcetam 500 MG/5 ML UDC NG SCH ×2 (08:01→20:20)
[2016-11-28] MEDS: FUROSEMIDE 40 MG/5 ML UNIT DOSE CUP NG SCH (08:02)
[2016-11-28] MEDS: LANSOPRAZOLE SOLUTAB 30 MG TAB NG SCH (08:02)
[2016-11-28] MEDS: BENEPROTEIN POWDER 1 PACK G-TUBE SCH ×6 (08:03→18:00)
[2016-11-28] MEDS: BACITRACIN TOP OINT 15 GM TUBE TOPICAL SCH ×2 (08:03→20:20)
[2016-11-28] MEDS: ARTIFICIAL TEARS OPTH SOLN 15 ML BTL EACH EYE SCH ×3 (08:03→18:00)
[2016-11-28] MEDS: SODIUM CHLORIDE 0.9% FLUSH 10 ML FLUSH IV FLUSH SCH ×2 (08:03→20:19)
[2016-11-28] MEDS: POVIDONE IODINE 10% OINT 30 GM TUBE TOPICAL SCH (09:00)
[2016-11-28 10:59] LABS: REVIEW FLAG FINAL
[2016-11-28] MEDS ORDERED: CISATRACURIUM INJ 100 MG in SODIUM CHLOR 0.9% 250 ML INJ 240 ML IV PRN (11:00)
[2016-11-28 11:02] LABS: HEMATOCRIT 20.7 % (39.0-51.0)
[2016-11-28] MEDS ORDERED: SODIUM CHLOR 0.9% 250 ML INJ 250 ML IV ONE (11:15)
--- NOTE | 2016-11-28 14:10 | HHI.CCPN ---
Subjective Remarks/Hospital Course 10/07: 56-year-old male presents with intracranial bleed. Patient was transferred from [facility] at [facility]. As per the paramedics and the nurse who assisted the patient said that patient earlier this morning was coming down the stairs when he started feeling some left-sided weakness and numbness. He called 911 and by the time EMS arrived they detected some deficit and called a stroke alert. Patient was taken to [facility]. When patient arrived his mental status started to decline and he was intubated emergently in the ER. A CAT scan of the head showed subarachnoid and subdural bleed. He was taking emergently to an angio suite for coiling of the aneurysm and later on to OR for subdural hematoma evacuation. 10/08: Remains sedated, orally intubated on mechanical ventilation. Arouses off sedation and following commands with both upper extremities earlier. Ventriculostomy in place. ICP 7, CPP mid 80s. 10/09: Remains sedated, orally intubated on mechanical ventilation. Arouses off sedation and follows commands with both upper extremities. Ventriculostomy in place. 10/10: Remains sedated, orally intubated on mechanical ventilation. Arouses off sedation and follows commands and both upper extremities. Ventriculostomy in place. ICP 5. Failed C Pap trial yesterday. 10/11: Extubated on 10/10, tolerating well. Awake and alert. Appears confused, moving all 4 extremities. Ventriculostomy discontinued today by neurosurgery 10/13: Patient has developed severe vasospasm at the left MCA territory on TCD's that was treated with IV route verapamil 10/14: patient extubated overnight. was originally following commands and neuro intact. TCDs this morning with increase LIs over yesterday, particularly Left MCA territory. On my evaluation early this morning, patient was aphasic, not moving the right side of his body, not following commands. SBP 140s at that time. net 2L negative/24h and uop almost 1L/hr at the time. I immediately bolused with 2L NS iv, placed arterial and central lines, started phenylephrine , increased SBP to goal 200 - 220 mmHg. called interventional neuroradiology and accompanied patient down personally to IR for IA verapamil again. I remained with the patient managing his hemodynamics down in IR and providing anxiolysis IV. I accompanied patient back up to [facility] where patient again was neuro intact and following commands. Sodium downtrending to 135 and urine studies and serum osms suggestive of urine sodium losses and high uop. added Florinef to mitigate sodium losses, and increased mivf to 500cc/hr to maintain euvolemia. later in the day patient decompensated requiring intubation for hyoxemia, cxr suggestive of pulmonary edema. 2d echo with evidence of EF 40%, septal hypokinesis, moderate MR. On levo, vaso, phenylephrine. difficult to get to goal SBP 200 mmHg, likely due to myocardial dysfunction. decreased goal to 180 - 200 mmHg to balance cardiac vs. neurologic goals. 10/15 Patient was discussed with Dr. Sullivan at shift change. Isuprel was initiated in effort to improve cardiac output as dobutamine not available and concerned with use of milrinone given long half life. Systolic blood pressure was relatively stable with perhaps some modest improvement from 170s to 180s for several hours after initiation. Notified when patient became abruptly hypotensive despite vasopressin, levophed 20 mcg/min, Greyson-Synephrine 300 mcg/m. He was also hypoxemic with sats in 80s despite PCV with PEEP 8 and FiO2 100%, respiratory rate in the 30s. He had decreased breath sounds bilaterally and was concerned for air trapping so removed from mechanical ventilation and bagged without improvement. Placed patient back on mechanical ventilation and provide recruitment maneuvers and increased PEEP to 12 which resulted in improvement of sats to 88% to 92%. Ordered Flolan. Discontinued isuprel and initiated epinephrine. R radial art line would not draw blood . Performed u/s guided femoral artery stick to confirm hypoxemia on ABG given poor wave form on pulse ox and PaO2 was 58. Placed new L radial art line and this resulted in ~ 30 point increase in SBP relative to prior line but patient ultimately on vasopressin, levophed 30 micrograms per minute, Greyson-Synephrine 300 micrograms per minute, epinephrine 12 mcg/min and unable to maintain target pressure (SBP in 150s). Given calcium chloride. patient with shaking movements all extremities, pupils 2mm and sluggish, no eye deviation. Rigors seemed most likely but unable to emergently rule out seizures so loaded with fosphenytoin to avoid secondary injury from seizure activity. WBC increasing and concern for HCAP so pancultured and placed on cefepime, vancomycin, azithromycin. Hydrocortisone 100 mg IV every 8 hours initiated due to concern for septic shock in a patient who has been refractory to all other above measures. Patient is to hemodynamically unstable and hypoxic for transport for neurologic imaging. Urine output has declined to 180-200 ML's per hour. Back off maintenance IV fluids to 200 ML's per hour. Bedside echo demonstrates decreased LV function with normal RV contractility and collapsible IVC suggesting ongoing maintenance fluid administration is appropriate. 10/15 additional visit: continued to deteriorate throughout the day. Seen multiple times. hypoxic on 100% fio2, flolan. required nimbex drip to maintain. repeat bedside critical care ultrasound still demonstrates severe LV dysfunction , decompressed RV, IVC more dilated than previous echo overnight, however still with respiratory variation. femoral arterial line placed with better waveform and higher pressure (likely SVR too high to allow accurate measurement of radial pressure). Pulse contour analysis without stroke volume variation, CI 3.6. SV 52mL. trialed additional albumin without improvement in hemodynamics. uop slower than before, but still significant salt wasting in the urine- sodium dropped to 125 from 132 despite already on 3% nacl infusion and aggressive sodium replacements. forced to give 23% nacl and salt tabs. declining clinically despite maximal therapy. 10/16: continues to be maximally critically ill. LV dysfunction persists. starting to get volume overloaded, but given concern for ongoing cerebral vasospasm, unable to actively diurese patient. sodium wasting persists, but uop downtrending slightly. very hypokalemic today, likely due to steroids. remains intubated, sedated, paralyzed, on flolan. CXR today appears worse with worsening airspace disease. Lactate remains slightly elevated, confirming persistent shock. 10/17: Lung infiltrates dense bilaterally, reflected in shunting and problems with oxygenation. Developed vasospasm on TCDs and required angiogram and intra- arterial verapamil again today. 10/18: SBP 160 - 170 range. FiO2 0.55. BNP > 5000. Not tolerating attempts at maintaining higher BP due to worsening heart failure. Several episodes of vasospasm. Watch daily TCDs closely. Sputum no growth. 10/19: Tmax 99.8. Currently 99. Remains on 4 vasopressors and epoprostenol 10/20: Yesterday. Returned IR for intra-arterial calcium channel jose infusion for vasospasm. Transcranial Dopplers today Still pending. Remains on significant vasopressor support. 10/21: Good response to diuresis, check BNP. TCDs pending. Heart failure remains a major problem. 10/22: CVP 21 - 22, finger tips blue, digits pale white despite high dose milrinone dilation. Greyson and vaso much reduced. Will try diltiazem gtt for digital ischemia. Urine remains > 200/hr and proximal limbs are well perfused. This digital ischemia appears to be a local phenomenon ala Raynaud's. New subcutaneous emphysema right anterior chest wall. 10/23: Old CVL removed. Fingertips remain marginal, some necrotic despite diltiazem and milrinone treatment for digital ischemia. Cardiac output > 7 liters/min and urine copious, confirming good perfusion pressure and flow. This continues to be a local phenomenon of the digits ala Raynaud's. We are trying to wean vasopressors off but are required to maintaining a cerebral perfusion pressure suitable for the treatment of aneurysmal subarachnoid bleed. Frankly, the importance of brain function eclipses fingertips. 10/24: Afebrile. Well perfused except for index finger left hand, few tips fingers right. Arms and hands warmer with resolving circumferential edema. Diltiazem and milrinone gtt continue. Greyson to 10 mics/min. 10/25: Digits are warm and well perfused except left index and right 4th fingertips; demarcated and not viable. Dry. Diltiazem and milrinone infusions continue to help reverse digital ischemia. 10/26: Forced diuresis continues and BP remains nicely elevated. Hands and digits warm aside from left index and right 4th fingertips which have demarcated. 10/27: Good response to diuretics. Perfusion pressure and documented flow excellent. Continue to wean vent. 10/28: Start SBTs. Fluid balance back toward normal. 10/29: Tolerating SBTs. Lowering sedation. Edema resolving. 10/30: Tolerating tube feeds, will taper off TPN and remove central line. Continue diuretics. 10/31: net -3L over 24h. mental status at baseline. tolerating CPAP, but does not have the mental status to protect airway. will likely need trach/peg. placement will be a problem due to lack of funding. 11/01: no changes or improvements. discussed with yesterday and she "does not want any more setbacks" and would prefer trach versus trial of extubation. I agree with her assessment. plan for trach today. placement is still a significant problem. net -2L/24h. 11/02: wbc uptrending, febrile. antonio cultured, started empiric abx today. failed SBT overnight and placed back on rate. 11/03: Tolerating CPAP today, following commands. Low-grade fever cultures pending. WBC count normal today 11/04: Remains on TPs since yesterday. Neuro exam remains stable. Follows commands weakly. Na 152 11/05: Remains off vent for 48 hours now. Sitting up in stretcher chair today. Na improved to 149. remains weak but improving 11/06: Continues to tolerate TPs well. Neuro exam unchanged. Sodium 148 today. Continues to spike intermittent fever Tmax 102.7. 11/07: Continued fevers, no leukocytosis. 11/08: Stable for replacement of bone flap. 11/09: Getting a bit excessively diuresed, will decrease lasix and convert to PO. Fingertips and toes demarcating as expected. No immediate action required except for continued diltiazem therapy. Clearly a Raynaud's type digital ischemia as peripheral perfusion and urine output indicated excellent peripheral perfusion. 11/10: Tracks with eyes today, nods to questions. Failed swallow again. 11/11: Plan for PEG, GI consulted. Bone flap replacement on hold due to blood cultures and fever. 11/12: May get PEG today, Bone flap to be replaced coming week per Dr. Perry. Afebrile no white count 11/13: Neuro exam unchanged. Na was 150 yesterday, repeat CMP pending. Left flap remains sunken 11/14: emesis overnight with ? aspiration event. no increased O2 requirement, but fever to 102.5 today. recultured. no complaints from patient. 11/15: No changes. still low suspicion for infection. Awaiting ID clearance for bone flap replacement. also awaiting placement 11/16: Placed on full ventilator support overnight for acute hypoxemic respiratory failure due to mucous plugging. Mucomyst added. Not on any sedation. Chest x-ray back to baseline-no need a bronchoscopy at this time, but will do if there is recurrent plugging. Will check sputum culture, and trach site culture 11/17: Breathing comfortably on the vent, on CPAP now. Off all sedation. We'll attempt T piece yesterday. Sodium normal 11/18: Currently tolerating TP. Patient had a few episodes of nausea vomiting. KUB shows ileus. Overnight was started on Reglan IV and when necessary Zofran. We'll keep nothing by mouth until ileus resolved. 11/19: Back on vent rate due to poor spontaneous effort. Hgb down 2 gms - looks like dilution; follow closely. VS without change. Ileus has resolved. 11/20: ABIs normal with normal pressure. Inflow satisfactory to all limbs. GI tract working well. 11/21: Tmax 99.1. Positive BM from fecal containing device. Tolerating t piece 24 hours. Tube feeds are at goal. Okay for OR from ID standpoint 11/22 currently resting in bed in no acute distress. On TP since 48 hours. Tube feeds at goal. 11/23: Resting in bed on T piece and 72 hours. Tube feeding at goals. Cleared from ID for plastics. 11/26: rapid response for massive hemoptysis. Patient rapidly reintubated through mouth and trach tube removed at same time. No bleeding from the trach stoma or above. All blood is coming from below. Bronchoscopy demonstrated large clots in both left and right mainstems. Right side clot 2 x 2 x 3 cm. Finally suctioned clear enough to inspect - no bleeding source found. Will keep on vent with PEEP 12 and heavy sedation. Plts 380,000, INR 1.0 11/27: CTA reviewed. He appears to bee bleeding from the anterior segment of the right upper lobe, which is displaced inferiorly by apical bullous disease. Subjective 11/28: remains sedated and paralyzed. still requiring active transfusions. but no longer hypoxic and bloody secretions are much less. Objective Vital Signs Date Time Temp Pulse Resp B/P (MAP) Pulse Ox O2 Delivery O2 Flow Rate FiO2 11/28/16 11:57 98.2 93 20 113/61 100 11/28/16 11:27 40 11/26/16 19:00 Mechanical Ventilator 11/26/16 15:45 6.00 Intake and Output 11/28/16 11/28/16 11/29/16 08:00 16:00 00:00 Intake Total 2525 ml 250 ml Output Total 925.0 ml Balance 1600.0 ml 250 ml Result Diagram: 11/28/16 1030 11/28/16 0344 Other Results Laboratory Tests Test 11/28/16 04:10 Blood Gas Puncture Site RT FEMORAL Blood Gas Patient Temperature 98.6 Blood Gas HCO3 28 mmol/L (22-26) Blood Gas Base Excess 3.9 mmol/L (-2-2) Blood Gas Oxygen Saturation 97 % (90-100) Arterial Blood pH 7.45 (7.380-7.420) Arterial Blood Partial Pressure CO2 40 mmHg (38-42) Arterial Blood Partial Pressure O2 137 mmHg (61-120) Arterial Blood Oxygen Content 9.7 Vol % (12.0-20.0) Arterial Blood Carboxyhemoglobin 1.7 % (0-4) Arterial Blood Methemoglobin 0.7 % (0-2) Blood Gas Hemoglobin 6.9 G/DL (12.0-16.0) Oxygen Delivery Device VENTILATOR Blood Gas Ventilator Setting 20/500/IT0.9/12PEEP Blood Gas Inspired Oxygen 40 % Imaging Last Impressions Abdomen X-Ray 11/19/16599 Signed Impressions: Service Date/Time: Saturday, November 19, 2016 02:44 - CONCLUSION: Unchanged bowel gas pattern potentially relating to an ileus. Santos Crockett Jr., MD Chest X-Ray 11/18/16599 Signed Impressions: Service Date/Time: Friday, November 18, 2016 05:04 - CONCLUSION: Unchanged bilateral pulmonary infiltrates. Santos Crockett Jr., MD Transcranial Doppler Study Complete 10/20/16599 Signed Impressions: Service Date/Time: October 07:54 - CONCLUSION: Slight interval elevation of flow velocity measurements and ratio on the left Yosvany Polk MD Liver Ultrasound 10/19/16 Signed Impressions: Service Date/Time: Wednesday, October 19, 2016 11:20 - CONCLUSION: 1. Sludge filled gallbladder with thickened wall. 2. Moderate size bilateral pleural effusions and mild upper abdominal ascites. Santos Vazquez MD Cerebral Arteriogram 10/19/16 Signed Impressions: Service Date/Time: Wednesday, October 19, 2016 12:47 - CONCLUSION: Uncomplicated cerebral arteriography with spasmolytic therapy as described in detail above. Yosvany Polk MD Head CT 10/17/16 Signed Impressions: Service Date/Time: Monday, October 17, 2016 15:06 - CONCLUSION: Ventricles are slightly larger without ventriculostomy. Edema in the left hemisphere the brain herniating through the operative site. Remington Woodward MD FACR Infusion Non-thrombolysis 10/14/16 1103 Signed Impressions: Service Date/Time: Friday, October 14, 2016 10:21 - CONCLUSION: 1. Uncomplicated infusion for spasmolysis Harvey Morejon MD Neck CTA 10/07/16 0000 Signed Impressions: Service Date/Time: Friday, October 07, 2016 15:03 - CONCLUSION: 1. Mild carotid bulb atherosclerotic calcification bilaterally. However, no significant stenosis is present in either internal carotid artery. 2. Paranasal sinus mucoperiosteal thickening. 3. Please refer to brain CTA report for description of the intracranial findings. Yosvany Ramirez MD Head CTA 10/07/16 0000 Signed Impressions: Service Date/Time: Friday, October 07, 2016 15:03 - CONCLUSION: 1. 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 2. Large left subdural hematoma measuring 1.3 cm in depth with a significant, 1.6 cm left to right subfalcine shift. Joni Shelton MD Objective Remarks GENERAL: 56-year-old male. intubated, sedated, critically ill. HEAD: Status post left craniectomy. Left flap sunken, Incision healing well EYES: 3 mm bilaterally and reactive NECK: trach site is covered with gauze. orotracheally intubated. CARDIOVASCULAR: RRR. RESPIRATORY: TP. Diffuse rhonchi and mobile secretions. bloody secretions are improving. GASTROINTESTINAL: Abdomen soft, non-tender, nondistended. No guarding. MUSCULOSKELETAL: Ischemic changes worst to left index finger tip, right 4th fingertip, and majority of R toes. Demarcating, dry. NEURO EXAM: deeply sedated and paralyzed. Procedures 10/13 Four-vessel cerebral angiography with verapamil treatment of vasospasm A/P Assessment and Plan Neuro/Psych Status post left frontotemporal parietal craniectomy 10/08 for evacuation subdural hematoma/duraplasty Left subdural hematoma - 1.3 cm with 1.6 shift left to right Subarachnoid hemorrhage Alvarado and Rodriguez 5, Carroll grade 4 - left P-comm status post 4 coiling 10/08 - Nimodipine completed 21 days. Initiated 10/13. - Levetiracetam 500 mg per tube q12h. - 10/13 and 10/14 and 10/17) 10/19 left MCA territory vasospasm, status post successful verapamil treatment by IR with 20 mg verapamil - 10/17 CT brain - less hemisphere edema with herniation through left craniotomy site, now improved. - Dr. Perry/neurosurgery. Plan to replace bone flap okayed by infectious disease. - Liquid oxycodone 10 mg every 4 hours, hydromorphone 0.5 mg every 4 hours when necessary pain - versed drip for sedation Respiratory: Acute hypoxic Respiratory failure secondary to mucous plugging Possible healthcare associated pneumonia ARDS- resolved Noncardiogenic/neurogenic pulmonary edema- resolved. Chronic respiratory failure requiring tracheostomy Massive Hemoptysis -- Nebs, HOB at 30 degrees. TP today at 40%/6 L. -- Albuterol/troponin every 6 hours with albuterol aerosols every 2 hours for Dyspnea. -- Follow-up on sputum culture -- s/p Trach Dr. Sullivan/Dr. Collazo 11/01 #8 Shiley -- repeat CTA chest to eval for ongoing active extrav -- will plan for bronch tomorrow with possible re-do perc trach Cardiovascular: Septic and cardiogenic shock- resolved. LV dysfunction secondary to SAH - persistent, now resolved Elevated troponin- secondary to SAH, unlikely to be ACS. - resolved. Pulmonary hypertension free water 200mL per tube q6h. Echocardiogram 10/14/16 revealed EF 40-45%. Septal hypokinesis. Moderate MR. Severe pulmonary hypertension with pulmonary artery pressures estimated 61 mmHg Limited Echo 11/06: LVEF 60-65%, Trivial mitral and tricuspid regurgitation, No vegetations noted. Continue diltiazem's 90 mg by mouth every 6 hours Renal: Cerebral Salt Wasting/SIADH-resolved now hypernatremic Strict I/Os. See FEN below. Creatinine currently within normal limits -> resolved. Monitor urine output FEN/GI: Ileus Hypokalemia Elevated transaminases Hyperammonemia - Currently on Glucerna 1.5 goal 60 cc an hour - free water per tube - ICU electrolyte protocol. aggressively replace potassium losses. - Lansoprazole 30 mg by tube daily for GI prophylaxis - Continue bowel regimen - Continue PEG feeding. s/p PEG 11/12/16 Heme/ID: Septic Shock- resolved. Possible HCAP New Fever, leukocytosis, staph epi bacteremia - limited Echo to evaluate vegetation-neg. ID following - Follow-up on sputum culture, trach site culture - Digital Ischemia with necrosis, conservative management - s/p Diltiazem and milrinone infusions - Digits have demarcated, allow auto amputation. Cardizem PO currently and 90 mg every 6 hours (for digital ischemia, Raynaud's) Continue bacitracin twice a day to affected areas Pertinent cultures 10/15 - blood cultures - 1 out of 4 anaerobic gram-negative cocci possibly Veillonella 10/15 - sputum - beta strep not A, strep species 10/19 cultures NG 10/21 02/16 bottles blood cultures coag negative staph. Culture 11/01. coag neg stah 03/19 bottles 11/16 sputum in trach site cultures negative s/p levofloxacin x 7 days end 11/15/16 Fluconazole discontinued per infectious disease Endocrine: Presumed Adrenal Insufficiency Discontinued fludrocortisone 10/18. Sliding-scale insulin with NovoLog -Accu-Cheks every 4 hours to maintain euglycemia MSK: PT evaluate and treat Prophylaxis: GI Prophylaxis - lansoprazole DVT Prophylaxis-- SCDs, d/c heparin subcutaneous Hemoptysis - started 11/26, bronchoscopy with bleeding from lungs. Trach site clean and dry. Reintubated through mouth. - Hold lovenox, asa. - repeat CTA to eval alveolar anatomy and any ongoing bleeding/active extrav - repeat bronch tomorrow with possible re-do perc trach. Lines: - 10/14 right SC TLC, removed 10/22 - 10/14 right radial art line, removed 10/14 - 10/15 left radial art line, removed 10/16 - 10/22 left groin triple lumen placed, d/c 10/30 - d/c ramires. Overall impression: Massive hemoptysis from lungs has ceased. It is not involving trach site. Critically ill with unstable respiratory status. Ventilator dependent. still deeply sedated and paralyzed to improve oxygenation. repeat imaging today. off pathway. Critical Care 32 mins aside from procedures Walter Sullivan MD Nov 28, 2016 14:10
[2016-11-28 19:03] LABS: HEMATOCRIT 23.1 % (39.0-51.0); REVIEW FLAG FINAL
[2016-11-28] MEDS: MELATONIN 5 MG TAB PO SCH (20:20)
--- NOTE | 2016-11-28 21:22 | RADRPT ---
EXAM DATE/TIME: 11/28/2016 21:56 [facility] COMPARISON: CHEST SINGLE AP, November 26, 2016, 17:49. INDICATIONS : Respiratory failure. MEDICAL HISTORY : Seizures. SURGICAL HISTORY : None. ENCOUNTER: Subsequent ACUITY: 2 weeks PAIN SCORE: Non-responsive. LOCATION: Bilateral chest FINDINGS: ET tube remains above the jenna and there is a nasogastric tube now passes to the midline into the s tomach. Hyperaeration is appreciated and patchy mid and basilar airspace disease is stable and unchan ged. CONCLUSION: Stable bilateral airspace disease and COPD. ET tube above the jenna with now a nasogastric tube to t he midline into the stomach. Kurt Ureña MD on November 28, 2016 at 21:19 Board Certified Radiologist. This report was verified electronically.
[2016-11-28] MEDS: MIDAZOLAM 100 MG/100 ML INJ 100 ML IV PRN (22:12)
[2016-11-28 22:40] LABS: HEMATOCRIT 25.7 % (39.0-51.0); REVIEW FLAG FINAL
[2016-11-28 23:20] LABS: BLOOD GAS BASE EXCESS 4.2 mmol/L (-2-2); BLOOD GAS HCO3 29 mmol/L (22-26); BLOOD GAS METHEMOGLOBIN 0.9 % (0-2); BLOOD GAS O2 HGB SATURATION 84 % (90-100); BLOOD GAS OXYGEN CONTENT 9.5 Vol % (12.0-20.0); BLOOD GAS PCO2 53 mmHg (38-42); BLOOD GAS PO2 56 mmHg (61-120); TEMP CORR TO 98.6
[2016-11-28 23:21] LABS: CRITICAL VALUE YES
[2016-11-28 23:22] LABS: DRAW SITE RT RADIAL; FIO2 60 %; NUMBER OF ARTERIAL PUNCTURES 1; OXYGEN DEVICE VENT; VENT SETTINGS SEE COMMENTS
[2016-11-28 23:23] LABS: STAT NO; ULNAR PULSE PRESENT
[2016-11-29] VITALS (20 sets, daily range): BP systolic 90–142; BP diastolic 53–77; PULSE 94–108; RESP 20–25; TEMP 97.4–100; O2SAT 94–100
[2016-11-29] MEDS: DILTIAZEM HCL 90 MG TAB PO SCH ×4 (01:23→17:11)
[2016-11-29] MEDS: METOCLOPRAMIDE HCL 10 MG/2 ML VIAL IV PUSH SCH ×3 (01:24→17:12)
[2016-11-29] MEDS: LACTATED RINGER'S 1000 ML INJ 1,000 ML IV SCH ×2 (03:28→14:50)
[2016-11-29] MEDS: CHLORHEXIDINE GLUCONATE 2 % 1 PACK (2 CLOTHS) TOP SCH (04:00)
[2016-11-29] MEDS ORDERED: LIDOCAINE HCL 2% 100 MG/5 ML SYRINGE ONE (04:20)
[2016-11-29] MEDS ORDERED: ATROPINE SULFATE 1 MG/10 ML SYRINGE ONE (04:20)
[2016-11-29] MEDS ORDERED: EPINEPHrine HCL (1:10,000) 1 MG/10 ML SYRINGE ONE ×3 (04:20→06:48)
[2016-11-29] MEDS ORDERED: IOHEXOL 350 MG/ML 10 ML VIAL (for RAD DIAG) IVCONTRAST ONE (05:14)
--- NOTE | 2016-11-29 05:49 | RADRPT ---
EXAM DATE/TIME: 11/29/2016 05:13 [place] COMPARISON: CHEST SINGLE AP, November 28, 2016, 21:56. INDICATIONS : Hemoptysis. IV CONTRAST: 70 cc Omnipaque 350 (iohexol) IV RADIATION DOSE: 4.69 CTDIvol (mGy) MEDICAL HISTORY : Seizures. SURGICAL HISTORY : None. ENCOUNTER: Subsequent ACUITY: 3 days PAIN SCALE: 0/10 LOCATION: Bilateral chest TECHNIQUE: Volumetric scanning of the chest was performed. Using automated exposure control and adjustment of t he mA and/or kV according to patient size, radiation dose was kept as low as reasonably achievable to obtain optimal diagnostic quality images. DICOM format image data is available electronically for review and comparison. Follow-up recommendations for detected pulmonary nodules are based at a minimum on nodule size and pa tient risk factors according to Fleischner Society Guidelines. FINDINGS: There is severe emphysematous change in both upper lobes. There are centrilobular emphysematous peralta es throughout both lungs. There is patchy alveolar disease bilaterally compatible with edema or pneum onia. Examination of the mediastinum demonstrates no abnormally enlarged lymph nodes by CT criteria. No axi llary or hilar abnormalities are identified. Coronary artery calcifications are present. The visualiz ed upper abdomen demonstrates no abnormality. The gastrojejunostomy tube is present with the jejunal portion looped within the stomach. CONCLUSION: 1. Patchy alveolar disease characteristic of edema or pneumonia. 2. Severe emphysema 3. Gastrojejunostomy tube looped in the stomach Harvey Morejon MD on November 29, 2016 at 5:45 Board Certified Radiologist. This report was verified electronically.
[2016-11-29] MEDS: fentaNYL DRIP 250 ML IV PRN (06:30)
[2016-11-29] MEDS: levETIRAcetam 500 MG/5 ML UDC NG SCH ×2 (07:57→21:09)
[2016-11-29] MEDS: LACTOBACILLUS ACIDOPHILUS TAB PO SCH ×3 (07:57→17:11)
[2016-11-29] MEDS: LANSOPRAZOLE SOLUTAB 30 MG TAB NG SCH (07:57)
[2016-11-29] MEDS: BENEPROTEIN POWDER 1 PACK G-TUBE SCH ×6 (07:58→17:13)
[2016-11-29] MEDS: CHLORHEXIDINE 0.12% (ORAL KIT) 15 ML CUP MT SCH ×2 (07:58→21:09)
[2016-11-29] MEDS: FUROSEMIDE 40 MG/5 ML UNIT DOSE CUP NG SCH (07:58)
[2016-11-29] MEDS: SODIUM CHLORIDE 0.9% FLUSH 10 ML FLUSH IV FLUSH SCH ×2 (07:58→21:09)
[2016-11-29] MEDS: ARTIFICIAL TEARS OPTH SOLN 15 ML BTL EACH EYE SCH ×3 (07:58→17:12)
[2016-11-29] MEDS: BACITRACIN TOP OINT 15 GM TUBE TOPICAL SCH ×2 (07:58→21:09)
[2016-11-29] MEDS: POVIDONE IODINE 10% OINT 30 GM TUBE TOPICAL SCH (07:59)
--- NOTE | 2016-11-29 08:41 | HHI.PR ---
Subjective Remarks ON THE VENTILATOR REINTUBATED LAST NIGHT CPR FOR ABOUT 10 MIN PER STAFF Objective Vital Signs Date Time Temp Pulse Resp B/P (MAP) Pulse Ox O2 Delivery O2 Flow Rate FiO2 11/29/16 08:08 100 60 11/29/16 08:00 80 11/29/16 08:00 99.0 98 20 104/60 (75) 100 11/29/16 08:00 98 11/29/16 06:00 108 11/29/16 05:00 100 100 11/29/16 04:00 99.0 100 20 93/53 (66) 99 11/29/16 04:00 40 11/29/16 04:00 100 11/29/16 03:50 100 80 11/29/16 02:00 106 11/29/16 00:00 97.4 98 20 114/58 (76) 99 11/29/16 00:00 40 11/29/16 00:00 98 11/29/16 00:00 98 80 11/28/16 23:20 97 80 11/28/16 22:10 98 60 11/28/16 22:00 110 11/28/16 20:00 98.2 87 20 127/64 (85) 99 11/28/16 20:00 40 11/28/16 20:00 87 11/28/16 16:00 97.7 89 20 112/62 (79) 100 11/28/16 16:00 40 11/28/16 15:35 98 40 11/28/16 12:00 40 11/28/16 12:00 98.2 88 20 114/61 (78) 100 11/28/16 11:57 98.2 93 20 113/61 100 11/28/16 11:27 98 40 I/O 11/28/16 11/28/16 11/28/16 11/29/16 11/29/16 11/29/16 07:00 15:00 23:00 07:00 15:00 23:00 Intake Total 2525 ml 900 ml 810.3 ml 1196.7 ml Output Total 925 ml 0 ml 650.0 ml 975 ml Balance 1600 ml 900 ml 160.3 ml 221.7 ml IV Total 1778 ml 22.3 ml 1029.7 ml Tube Feeding 687 ml 668 ml 167 ml Packed Cells 400 ml Blood Product IV Normal Saline Flush 500 ml Tube Irrigant 60 ml 120 ml Output Urine Total 425 ml 550 ml 475 ml Stool Total 500 ml 100 ml 0 ml Gastric Drainage Total 500 ml Tube Feeding Residual Discard 0 ml 0 ml 0 ml Result Diagram: 11/28/16 2141 11/28/16 0344 Objective Remarks GENERAL: SKIN: Warm and dry. HEAD: Atraumatic. Normocephalic. EYES: Pupils equal and round. No scleral icterus. No injection or drainage. ENT: No nasal bleeding or discharge. Mucous membranes pink and moist. NECK: Trachea midline. No JVD. CARDIOVASCULAR: Regular rate and rhythm. RESPIRATORY: No accessory muscle use. Clear to auscultation. Breath sounds equal bilaterally. TRACHEOSTOMY IN PLACE GASTROINTESTINAL: Abdomen soft, non-tender, nondistended. Hepatic and splenic margins not palpable. MUSCULOSKELETAL: Extremities without clubbing, cyanosis, or edema. No obvious deformities. NEUROLOGICAL: Awake and alert. No obvious cranial nerve deficits. Motor grossly within normal limits. Five out of 5 muscle strength in the arms and legs. Normal speech. PSYCHIATRIC: Appropriate mood and affect; insight and judgment normal. Assessment and Plan Assessment and Plan RESP FAILURE, ON VENT SUPPORT S/P IC BLEED CT CHEST , PATCHY INFILTRATES PLAN VENT SUPPORT PULMONARY TOILET REMOVE TRACH WHEN POSSIBLE Katie Wilson MD Nov 29, 2016 08:41
--- NOTE | 2016-11-29 11:26 | HHI.CCPN ---
Subjective Remarks/Hospital Course 10/07: 56-year-old male presents with intracranial bleed. Patient was transferred from [facility] at [facility]. As per the paramedics and the nurse who assisted the patient said that patient earlier this morning was coming down the stairs when he started feeling some left-sided weakness and numbness. He called 911 and by the time EMS arrived they detected some deficit and called a stroke alert. Patient was taken to [facility]. When patient arrived his mental status started to decline and he was intubated emergently in the ER. A CAT scan of the head showed subarachnoid and subdural bleed. He was taking emergently to an angio suite for coiling of the aneurysm and later on to OR for subdural hematoma evacuation. 10/08: Remains sedated, orally intubated on mechanical ventilation. Arouses off sedation and following commands with both upper extremities earlier. Ventriculostomy in place. ICP 7, CPP mid 80s. 10/09: Remains sedated, orally intubated on mechanical ventilation. Arouses off sedation and follows commands with both upper extremities. Ventriculostomy in place. 10/10: Remains sedated, orally intubated on mechanical ventilation. Arouses off sedation and follows commands and both upper extremities. Ventriculostomy in place. ICP 5. Failed C Pap trial yesterday. 10/11: Extubated on 10/10, tolerating well. Awake and alert. Appears confused, moving all 4 extremities. Ventriculostomy discontinued today by neurosurgery 10/13: Patient has developed severe vasospasm at the left MCA territory on TCD's that was treated with IV route verapamil 10/14: patient extubated overnight. was originally following commands and neuro intact. TCDs this morning with increase LIs over yesterday, particularly Left MCA territory. On my evaluation early this morning, patient was aphasic, not moving the right side of his body, not following commands. SBP 140s at that time. net 2L negative/24h and uop almost 1L/hr at the time. I immediately bolused with 2L NS iv, placed arterial and central lines, started phenylephrine , increased SBP to goal 200 - 220 mmHg. called interventional neuroradiology and accompanied patient down personally to IR for IA verapamil again. I remained with the patient managing his hemodynamics down in IR and providing anxiolysis IV. I accompanied patient back up to [facility] where patient again was neuro intact and following commands. Sodium downtrending to 135 and urine studies and serum osms suggestive of urine sodium losses and high uop. added Florinef to mitigate sodium losses, and increased mivf to 500cc/hr to maintain euvolemia. later in the day patient decompensated requiring intubation for hyoxemia, cxr suggestive of pulmonary edema. 2d echo with evidence of EF 40%, septal hypokinesis, moderate MR. On levo, vaso, phenylephrine. difficult to get to goal SBP 200 mmHg, likely due to myocardial dysfunction. decreased goal to 180 - 200 mmHg to balance cardiac vs. neurologic goals. 10/15 Patient was discussed with Dr. Sullivan at shift change. Isuprel was initiated in effort to improve cardiac output as dobutamine not available and concerned with use of milrinone given long half life. Systolic blood pressure was relatively stable with perhaps some modest improvement from 170s to 180s for several hours after initiation. Notified when patient became abruptly hypotensive despite vasopressin, levophed 20 mcg/min, Greyson-Synephrine 300 mcg/m. He was also hypoxemic with sats in 80s despite PCV with PEEP 8 and FiO2 100%, respiratory rate in the 30s. He had decreased breath sounds bilaterally and was concerned for air trapping so removed from mechanical ventilation and bagged without improvement. Placed patient back on mechanical ventilation and provide recruitment maneuvers and increased PEEP to 12 which resulted in improvement of sats to 88% to 92%. Ordered Flolan. Discontinued isuprel and initiated epinephrine. R radial art line would not draw blood . Performed u/s guided femoral artery stick to confirm hypoxemia on ABG given poor wave form on pulse ox and PaO2 was 58. Placed new L radial art line and this resulted in ~ 30 point increase in SBP relative to prior line but patient ultimately on vasopressin, levophed 30 micrograms per minute, Greyson-Synephrine 300 micrograms per minute, epinephrine 12 mcg/min and unable to maintain target pressure (SBP in 150s). Given calcium chloride. patient with shaking movements all extremities, pupils 2mm and sluggish, no eye deviation. Rigors seemed most likely but unable to emergently rule out seizures so loaded with fosphenytoin to avoid secondary injury from seizure activity. WBC increasing and concern for HCAP so pancultured and placed on cefepime, vancomycin, azithromycin. Hydrocortisone 100 mg IV every 8 hours initiated due to concern for septic shock in a patient who has been refractory to all other above measures. Patient is to hemodynamically unstable and hypoxic for transport for neurologic imaging. Urine output has declined to 180-200 ML's per hour. Back off maintenance IV fluids to 200 ML's per hour. Bedside echo demonstrates decreased LV function with normal RV contractility and collapsible IVC suggesting ongoing maintenance fluid administration is appropriate. 10/15 additional visit: continued to deteriorate throughout the day. Seen multiple times. hypoxic on 100% fio2, flolan. required nimbex drip to maintain. repeat bedside critical care ultrasound still demonstrates severe LV dysfunction , decompressed RV, IVC more dilated than previous echo overnight, however still with respiratory variation. femoral arterial line placed with better waveform and higher pressure (likely SVR too high to allow accurate measurement of radial pressure). Pulse contour analysis without stroke volume variation, CI 3.6. SV 52mL. trialed additional albumin without improvement in hemodynamics. uop slower than before, but still significant salt wasting in the urine- sodium dropped to 125 from 132 despite already on 3% nacl infusion and aggressive sodium replacements. forced to give 23% nacl and salt tabs. declining clinically despite maximal therapy. 10/16: continues to be maximally critically ill. LV dysfunction persists. starting to get volume overloaded, but given concern for ongoing cerebral vasospasm, unable to actively diurese patient. sodium wasting persists, but uop downtrending slightly. very hypokalemic today, likely due to steroids. remains intubated, sedated, paralyzed, on flolan. CXR today appears worse with worsening airspace disease. Lactate remains slightly elevated, confirming persistent shock. 10/17: Lung infiltrates dense bilaterally, reflected in shunting and problems with oxygenation. Developed vasospasm on TCDs and required angiogram and intra- arterial verapamil again today. 10/18: SBP 160 - 170 range. FiO2 0.55. BNP > 5000. Not tolerating attempts at maintaining higher BP due to worsening heart failure. Several episodes of vasospasm. Watch daily TCDs closely. Sputum no growth. 10/19: Tmax 99.8. Currently 99. Remains on 4 vasopressors and epoprostenol 10/20: Yesterday. Returned IR for intra-arterial calcium channel jose infusion for vasospasm. Transcranial Dopplers today Still pending. Remains on significant vasopressor support. 10/21: Good response to diuresis, check BNP. TCDs pending. Heart failure remains a major problem. 10/22: CVP 21 - 22, finger tips blue, digits pale white despite high dose milrinone dilation. Greyson and vaso much reduced. Will try diltiazem gtt for digital ischemia. Urine remains > 200/hr and proximal limbs are well perfused. This digital ischemia appears to be a local phenomenon ala Raynaud's. New subcutaneous emphysema right anterior chest wall. 10/23: Old CVL removed. Fingertips remain marginal, some necrotic despite diltiazem and milrinone treatment for digital ischemia. Cardiac output > 7 liters/min and urine copious, confirming good perfusion pressure and flow. This continues to be a local phenomenon of the digits ala Raynaud's. We are trying to wean vasopressors off but are required to maintaining a cerebral perfusion pressure suitable for the treatment of aneurysmal subarachnoid bleed. Frankly, the importance of brain function eclipses fingertips. 10/24: Afebrile. Well perfused except for index finger left hand, few tips fingers right. Arms and hands warmer with resolving circumferential edema. Diltiazem and milrinone gtt continue. Greyson to 10 mics/min. 10/25: Digits are warm and well perfused except left index and right 4th fingertips; demarcated and not viable. Dry. Diltiazem and milrinone infusions continue to help reverse digital ischemia. 10/26: Forced diuresis continues and BP remains nicely elevated. Hands and digits warm aside from left index and right 4th fingertips which have demarcated. 10/27: Good response to diuretics. Perfusion pressure and documented flow excellent. Continue to wean vent. 10/28: Start SBTs. Fluid balance back toward normal. 10/29: Tolerating SBTs. Lowering sedation. Edema resolving. 10/30: Tolerating tube feeds, will taper off TPN and remove central line. Continue diuretics. 10/31: net -3L over 24h. mental status at baseline. tolerating CPAP, but does not have the mental status to protect airway. will likely need trach/peg. placement will be a problem due to lack of funding. 11/01: no changes or improvements. discussed with yesterday and she "does not want any more setbacks" and would prefer trach versus trial of extubation. I agree with her assessment. plan for trach today. placement is still a significant problem. net -2L/24h. 11/02: wbc uptrending, febrile. antonio cultured, started empiric abx today. failed SBT overnight and placed back on rate. 11/03: Tolerating CPAP today, following commands. Low-grade fever cultures pending. WBC count normal today 11/04: Remains on TPs since yesterday. Neuro exam remains stable. Follows commands weakly. Na 152 11/05: Remains off vent for 48 hours now. Sitting up in stretcher chair today. Na improved to 149. remains weak but improving 11/06: Continues to tolerate TPs well. Neuro exam unchanged. Sodium 148 today. Continues to spike intermittent fever Tmax 102.7. 11/07: Continued fevers, no leukocytosis. 11/08: Stable for replacement of bone flap. 11/09: Getting a bit excessively diuresed, will decrease lasix and convert to PO. Fingertips and toes demarcating as expected. No immediate action required except for continued diltiazem therapy. Clearly a Raynaud's type digital ischemia as peripheral perfusion and urine output indicated excellent peripheral perfusion. 11/10: Tracks with eyes today, nods to questions. Failed swallow again. 11/11: Plan for PEG, GI consulted. Bone flap replacement on hold due to blood cultures and fever. 11/12: May get PEG today, Bone flap to be replaced coming week per Dr. Perry. Afebrile no white count 11/13: Neuro exam unchanged. Na was 150 yesterday, repeat CMP pending. Left flap remains sunken 11/14: emesis overnight with ? aspiration event. no increased O2 requirement, but fever to 102.5 today. recultured. no complaints from patient. 11/15: No changes. still low suspicion for infection. Awaiting ID clearance for bone flap replacement. also awaiting placement 11/16: Placed on full ventilator support overnight for acute hypoxemic respiratory failure due to mucous plugging. Mucomyst added. Not on any sedation. Chest x-ray back to baseline-no need a bronchoscopy at this time, but will do if there is recurrent plugging. Will check sputum culture, and trach site culture 11/17: Breathing comfortably on the vent, on CPAP now. Off all sedation. We'll attempt T piece yesterday. Sodium normal 11/18: Currently tolerating TP. Patient had a few episodes of nausea vomiting. KUB shows ileus. Overnight was started on Reglan IV and when necessary Zofran. We'll keep nothing by mouth until ileus resolved. 11/19: Back on vent rate due to poor spontaneous effort. Hgb down 2 gms - looks like dilution; follow closely. VS without change. Ileus has resolved. 11/20: ABIs normal with normal pressure. Inflow satisfactory to all limbs. GI tract working well. 11/21: Tmax 99.1. Positive BM from fecal containing device. Tolerating t piece 24 hours. Tube feeds are at goal. Okay for OR from ID standpoint 11/22 currently resting in bed in no acute distress. On TP since 48 hours. Tube feeds at goal. 11/23: Resting in bed on T piece and 72 hours. Tube feeding at goals. Cleared from ID for plastics. 11/26: rapid response for massive hemoptysis. Patient rapidly reintubated through mouth and trach tube removed at same time. No bleeding from the trach stoma or above. All blood is coming from below. Bronchoscopy demonstrated large clots in both left and right mainstems. Right side clot 2 x 2 x 3 cm. Finally suctioned clear enough to inspect - no bleeding source found. Will keep on vent with PEEP 12 and heavy sedation. Plts 380,000, INR 1.0 11/27: CTA reviewed. He appears to bee bleeding from the anterior segment of the right upper lobe, which is displaced inferiorly by apical bullous disease. 11/28: remains sedated and paralyzed. still requiring active transfusions. but no longer hypoxic and bloody secretions are much less. Subjective 11/29: overnight ett became dislodged leading to hypoxia, bradycardia, PEA arrest. ~10min CPR with ROSC and reintubation. this morning, off sedation, opens eyes spontaneously but no other movements. repeat CTA chest without evidence of extravasation from area of massive hemoptysis. Objective Vital Signs Date Time Temp Pulse Resp B/P (MAP) Pulse Ox O2 Delivery O2 Flow Rate FiO2 11/29/16 10:00 97 11/29/16 08:08 100 60 11/29/16 08:00 99.0 20 104/60 (75) 11/26/16 19:00 Mechanical Ventilator 11/26/16 15:45 6.00 Intake and Output 11/29/16 11/29/16 11/29/16 07:59 15:59 23:59 Intake Total 1196.7 ml Output Total 975 ml Balance 221.7 ml Result Diagram: 11/28/16 21411/28/16 0344 Other Results Laboratory Tests Test 11/28/16 23:05 Blood Gas Puncture Site RT RADIAL Blood Gas Patient Temperature 98.6 Blood Gas HCO3 29 mmol/L (22-26) Blood Gas Base Excess 4.2 mmol/L (-2-2) Blood Gas Oxygen Saturation 84 % (90-100) Arterial Blood pH 7.36 (7.380-7.420) Arterial Blood Partial Pressure CO2 53 mmHg (38-42) Arterial Blood Partial Pressure O2 56 mmHg (61-120) Arterial Blood Oxygen Content 9.5 Vol % (12.0-20.0) Arterial Blood Carboxyhemoglobin 2.0 % (0-4) Arterial Blood Methemoglobin 0.9 % (0-2) Blood Gas Hemoglobin 8.0 G/DL (12.0-16.0) Oxygen Delivery Device VENT Blood Gas Ventilator Setting SEE COMMENTS Blood Gas Inspired Oxygen 60 % Imaging Last Impressions Abdomen X-Ray 11/19/16599 Signed Impressions: Service Date/Time: Saturday, November 19, 2016 02:44 - CONCLUSION: Unchanged bowel gas pattern potentially relating to an ileus. Santos Crockett Jr., MD Chest X-Ray 11/18/16599 Signed Impressions: Service Date/Time: Friday, November 18, 2016 05:04 - CONCLUSION: Unchanged bilateral pulmonary infiltrates. Santos Crockett Jr., MD Transcranial Doppler Study Complete 10/20/16599 Signed Impressions: Service Date/Time: October 07:54 - CONCLUSION: Slight interval elevation of flow velocity measurements and ratio on the left Yosvany Polk MD Liver Ultrasound 10/19/16 0000 Signed Impressions: Service Date/Time: Wednesday, October 19, 2016 11:20 - CONCLUSION: 1. Sludge filled gallbladder with thickened wall. 2. Moderate size bilateral pleural effusions and mild upper abdominal ascites. Santos Vazquez MD Cerebral Arteriogram 10/19/16 0000 Signed Impressions: Service Date/Time: Wednesday, October 19, 2016 12:47 - CONCLUSION: Uncomplicated cerebral arteriography with spasmolytic therapy as described in detail above. Yosvany Polk MD Head CT 10/17/16 0000 Signed Impressions: Service Date/Time: Monday, October 17, 2016 15:06 - CONCLUSION: Ventricles are slightly larger without ventriculostomy. Edema in the left hemisphere the brain herniating through the operative site. Remington Woodward MD FACR Infusion Non-thrombolysis 10/14/16 1103 Signed Impressions: Service Date/Time: Friday, October 14, 2016 10:21 - CONCLUSION: 1. Uncomplicated infusion for spasmolysis Harvey Morejon MD Neck CTA 10/07/16 0000 Signed Impressions: Service Date/Time: Friday, October 07, 2016 15:03 - CONCLUSION: 1. Mild carotid bulb atherosclerotic calcification bilaterally. However, no significant stenosis is present in either internal carotid artery. 2. Paranasal sinus mucoperiosteal thickening. 3. Please refer to brain CTA report for description of the intracranial findings. Yosvany Ramirez MD Head CTA 10/07/16 0000 Signed Impressions: Service Date/Time: Friday, October 07, 2016 15:03 - CONCLUSION: 1. 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 2. Large left subdural hematoma measuring 1.3 cm in depth with a significant, 1.6 cm left to right subfalcine shift. Joni Shelton MD Objective Remarks GENERAL: 56-year-old male. intubated, critically ill. HEAD: Status post left craniectomy. Left flap sunken, Incision healing well EYES: 3 mm bilaterally and reactive NECK: trach site is covered with gauze. orotracheally intubated. CARDIOVASCULAR: RRR. RESPIRATORY: TP. Diffuse rhonchi and mobile secretions. bloody secretions are improving. GASTROINTESTINAL: Abdomen soft, non-tender, nondistended. No guarding. MUSCULOSKELETAL: Ischemic changes worst to left index finger tip, right 4th fingertip, and majority of R toes. Demarcating, dry. NEURO EXAM: encephalopathic. RASS -5. opens eyes spontaneously. does not track. - startle. no movement in extremities to painful stimuli. Procedures 10/13 Four-vessel cerebral angiography with verapamil treatment of vasospasm A/P Assessment and Plan Assessment: 56yM s/p SAH complicated by Neuro/Psych Status post left frontotemporal parietal craniectomy 10/08 for evacuation subdural hematoma/duraplasty Left subdural hematoma - 1.3 cm with 1.6 shift left to right Subarachnoid hemorrhage Alvarado and Rodriguez 5, Carroll grade 4 - left P-comm status post 4 coiling 10/08 Hypoxic-Ischemic Encephalopathy - Nimodipine completed 21 days. Initiated 10/13. - Levetiracetam 500 mg per tube q12h. - 10/13 and 10/14 and 10/17) 10/19 left MCA territory vasospasm, status post successful verapamil treatment by IR with 20 mg verapamil - 10/17 CT brain - less hemisphere edema with herniation through left craniotomy site, now improved. - Dr. Perry/neurosurgery. Plan to replace bone flap okayed by infectious disease. - hold sedation until neuro exam improves. frequent neuro checks. Respiratory: Acute hypoxic Respiratory failure secondary to mucous plugging Possible healthcare associated pneumonia ARDS- resolved Noncardiogenic/neurogenic pulmonary edema- resolved. Chronic respiratory failure requiring tracheostomy Massive Hemoptysis Aspiration pneumonitis -- Nebs, HOB at 30 degrees. TP today at 40%/6 L. -- Albuterol/troponin every 6 hours with albuterol aerosols every 2 hours for Dyspnea. -- Follow-up on sputum culture -- s/p Trach Dr. Sullivan/Dr. Collzao 11/01 #8 [facility] -- plan for re-do trach today. Cardiovascular: Septic and cardiogenic shock- resolved. LV dysfunction secondary to SAH - persistent, now resolved Elevated troponin- secondary to SAH, unlikely to be ACS. - resolved. Pulmonary hypertension s/p PEA arrest 11/28 after ett dislodgement, hypoxic arrest free water 200mL per tube q6h. Echocardiogram 10/14/16 revealed EF 40-45%. Septal hypokinesis. Moderate MR. Severe pulmonary hypertension with pulmonary artery pressures estimated 61 mmHg Limited Echo 11/06: LVEF 60-65%, Trivial mitral and tricuspid regurgitation, No vegetations noted. Continue diltiazem's 90 mg by mouth every 6 hours currently off vasopressors. Renal: Cerebral Salt Wasting/SIADH-resolved now hypernatremic Strict I/Os. See FEN below. Creatinine currently within normal limits -> resolved. Monitor urine output FEN/GI: Ileus Hypokalemia Elevated transaminases Hyperammonemia - Currently on Glucerna 1.5 goal 60 cc an hour - free water per tube - ICU electrolyte protocol. aggressively replace potassium losses. - Lansoprazole 30 mg by tube daily for GI prophylaxis - Continue bowel regimen - Continue PEG feeding. s/p PEG 11/12/16 Heme/ID: Septic Shock- resolved. Possible HCAP New Fever, leukocytosis, staph epi bacteremia - limited Echo to evaluate vegetation-neg. ID following - Follow-up on sputum culture, trach site culture - Digital Ischemia with necrosis, conservative management - s/p Diltiazem and milrinone infusions - Digits have demarcated, allow auto amputation. Cardizem PO currently and 90 mg every 6 hours (for digital ischemia, Raynaud's) Continue bacitracin twice a day to affected areas Pertinent cultures 10/15 - blood cultures - 1 out of 4 anaerobic gram-negative cocci possibly Veillonella 10/15 - sputum - beta strep not A, strep species 10/19 cultures NG 10/21 1/ bottles blood cultures coag negative staph. Culture 11/01. coag neg stah 03/19 bottles 11/16 sputum in trach site cultures negative s/p levofloxacin x 7 days end 11/15/16 Fluconazole discontinued per infectious disease Endocrine: Presumed Adrenal Insufficiency Discontinued fludrocortisone 10/18. Sliding-scale insulin with NovoLog -Accu-Cheks every 4 hours to maintain euglycemia MSK: PT evaluate and treat Prophylaxis: GI Prophylaxis - lansoprazole DVT Prophylaxis-- SCDs, d/c heparin subcutaneous Hemoptysis - started 11/26, bronchoscopy with bleeding from lungs. Trach site clean and dry. Reintubated through mouth. - Hold lovenox, asa. - repeat CTA to eval alveolar anatomy and any ongoing bleeding/active extrav - repeat bronch tomorrow with possible re-do perc trach. Lines: - 10/14 right SC TLC, removed 10/22 - 10/14 right radial art line, removed 10/14 - 10/15 left radial art line, removed 10/16 - 10/22 left groin triple lumen placed, d/c 10/30 - d/c ramires. Overall impression: Massive hemoptysis from lungs has ceased. Now hypoxic s/p massive aspiration and CPR after endotracheal tube dislodgement. remains critically ill in multiorgan failure and off pathway. Ventilator dependent. Critical Care 50 mins aside from procedures Walter Sullivan MD Nov 29, 2016 11:26
--- NOTE | 2016-11-29 11:27 | HHI.IDPN ---
Subjective Subjective Remarks Patient is a 56-year-old male, initially admitted at [facility] after he developed acute onset of left-sided weakness and numbness. In [facility] emergency room his mental status deteriorated, and he required intubation. CT of the head showed subarachnoid bleed. He was transferred to [facility] for neurosurgical evaluation and treatment. Patient underwent angiogram and coiling of his aneurysm. He also underwent emergency surgery and had left frontal temporal parietal decompressive craniectomy, duraplasty, and evacuation of a subdural hematoma. He had a ezio hole and the ventriculostomy placement. His hospitalization was complicated by significant vasospasm of his cerebral arteries, and he had multiple angiogram and treatment of the vasospasm. He also had problem with significant LV dysfunction in both volume overload. His had hyponatremia that has been treated and corrected. He initially started having fevers and some clinical deterioration as far as infection around the first week of October. He had a sputum culture that had pneumococcus, beta- hemolytic strep and Haemophilus. He had one out of 2 blood culture that had anaerobic gram-negative cocci. He was on antibiotics up until October 23. Patient also required significant amount of pressors to maintain an adequate blood pressure to ensure cerebral perfusion. 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 Patient eventually underwent tracheostomy for his continued respiratory requirement, and had this procedure done November 01. Patient currently has been doing quite well and not requiring ventilatory support, and on T piece. Starting November 02 he started having fevers again as well as increased WBC. Repeat cultures at that time grew 2 blood cultures that had coag-negative staph. His central lines have been removed. Patient also has had liquid stool, but C. difficile is negative. Urinalysis done was unremarkable. Patient was started back on antibiotics on November 02 and has been on cefepime and IV vancomycin. He continues to have fevers. His WBC has been down to normal. His last chest x- ray yesterday showing stable infiltrates. He has no central line. He has a Maldonado catheter in place. He has an NG tube and gets tube feedings. Infectious disease consultation has been requested to evaluate the patient for persistent fevers. Notes reviewed D/W RN Had problem with bleeding from trach this weekend Had bronch done and had lots of blood clots Trach removed and he had ET placed. Last night trach got dislodged, coded for about 10 minutes For bronch today and placement of new trach Temps ok BP ok Sedated CT chest with patchy alveolar infiltrates at bedside - states patient has had problem with rash in past usually in his trunk Antibiotics None Lines PIV Past Medical History Hypertension Past Surgical History Status post trach Status post craniectomy for evacuation of subdural hematoma Allergies: Coded Allergies: No Known Allergies (Unverified , 05/06/16) Objective . Vital Signs Date Time Temp Pulse Resp B/P (MAP) Pulse Ox O2 Delivery O2 Flow Rate FiO2 11/29/16 10:00 97 11/29/16 08:08 100 60 11/29/16 08:00 80 11/29/16 08:00 99.0 98 20 104/60 (75) 100 11/29/16 08:00 98 11/29/16 06:00 108 11/29/16 05:00 100 100 11/29/16 04:00 99.0 100 20 93/53 (66) 99 11/29/16 04:00 40 11/29/16 04:00 100 11/29/16 03:50 100 80 11/29/16 02:00 106 11/29/16 00:00 97.4 98 20 114/58 (76) 99 11/29/16 00:00 40 11/29/16 00:00 98 11/29/16 00:00 98 80 11/28/16 23:20 97 80 11/28/16 22:10 98 60 11/28/16 22:00 110 11/28/16 20:00 98.2 87 20 127/64 (85) 99 11/28/16 20:00 40 11/28/16 20:00 87 11/28/16 16:00 97.7 89 20 112/62 (79) 100 11/28/16 16:00 40 11/28/16 15:35 98 40 11/28/16 12:00 40 11/28/16 12:00 98.2 88 20 114/61 (78) 100 11/28/16 11:57 98.2 93 20 113/61 100 11/28/16 11:27 98 40 . Laboratory Tests Test 11/27/16 21:08 11/28/16 03:44 11/28/16 10:30 11/28/16 18:19 Hemoglobin 7.7 GM/DL 7.2 GM/DL 6.8 GM/DL 8.1 GM/DL Hematocrit 24.1 % 21.6 % 20.7 % 23.1 % Test 11/28/16 21:41 Hemoglobin 8.5 GM/DL Hematocrit 25.7 % Laboratory Tests Test 11/28/16 03:44 Blood Urea Nitrogen 31 MG/DL Creatinine 0.65 MG/DL Random Glucose 112 MG/DL Calcium Level 7.8 MG/DL Sodium Level 134 MEQ/L Potassium Level 5.0 MEQ/L Chloride Level 101 MEQ/L Carbon Dioxide Level 25.8 MEQ/L Anion Gap 7 MEQ/L Estimat Glomerular Filtration Rate 128 ML/MIN Imaging Chest X-Ray 11/16/16 0000 Signed Impressions: Service Date/Time: Wednesday, November 16, 2016 05:45 - CONCLUSION: No significant change bilateral airspace opacities. Yosvany Butler MD Chest X-Ray 11/14/16 0000 Signed Impressions: Service Date/Time: Monday, November 14, 2016 12:12 - CONCLUSION: 1. Interval development of patchy bilateral lower lung zone airspace disease and small left pleural effusion. Findings are concerning for aspiration. Kev Vergara MD Chest X-Ray 11/11/16 0000 Signed Impressions: Service Date/Time: Friday, November 11, 2016 20:54 - CONCLUSION: Trace right base atelectasis. Yosvany Butler MD Abdomen X-Ray 10/21/16 0600 Signed Impressions: Service Date/Time: Friday, October 21, 2016 03:50 - CONCLUSION: 1. NGT in the stomach. 2. General paucity of small bowel gas. This finding is nonspecific and occasionally may reflect fluid-filled loops of bowel. Otherwise, no dilated bowel loops to suggest significant ileus or obstruction. Kev Vergara MD Transcranial Doppler Study Complete 10/20/16 0600 Signed Impressions: Service Date/Time: October 07:54 - CONCLUSION: Slight interval elevation of flow velocity measurements and ratio on the left Yosvany Polk MD Liver Ultrasound 10/19/16 0000 Signed Impressions: Service Date/Time: Wednesday, October 19, 2016 11:20 - CONCLUSION: 1. Sludge filled gallbladder with thickened wall. 2. Moderate size bilateral pleural effusions and mild upper abdominal ascites. Santos Vazquez MD Cerebral Arteriogram 10/19/16 0000 Signed Impressions: Service Date/Time: Wednesday, October 19, 2016 12:47 - CONCLUSION: Uncomplicated cerebral arteriography with spasmolytic therapy as described in detail above. Yosvany Polk MD Head CT 10/17/16 0000 Signed Impressions: Service Date/Time: Monday, October 17, 2016 15:06 - CONCLUSION: Ventricles are slightly larger without ventriculostomy. Edema in the left hemisphere the brain herniating through the operative site. Remington Woodward MD FACR Infusion Non-thrombolysis 10/14/16 1103 Signed Impressions: Service Date/Time: Friday, October 14, 2016 10:21 - CONCLUSION: 1. Uncomplicated infusion for spasmolysis Harvey Morejon MD Neck CTA 10/07/16 0000 Signed Impressions: Service Date/Time: Friday, October 07, 2016 15:03 - CONCLUSION: 1. Mild carotid bulb atherosclerotic calcification bilaterally. However, no significant stenosis is present in either internal carotid artery. 2. Paranasal sinus mucoperiosteal thickening. 3. Please refer to brain CTA report for description of the intracranial findings. Yosvany Ramirez MD Head CTA 10/07/16 0000 Signed Impressions: Service Date/Time: Friday, October 07, 2016 15:03 - CONCLUSION: 1. 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 2. Large left subdural hematoma measuring 1.3 cm in depth with a significant, 1.6 cm left to right subfalcine shift. Joni Shelton MD Chest X-Ray 11/05/16599 Signed Impressions: Service Date/Time: Saturday, November 05, 2016 04:39 - CONCLUSION: Persistent non-consolidative infiltrates in the medial lower lungs. Santos Vazquez MD Abdomen X-Ray 10/21/16599 Signed Impressions: Service Date/Time: Friday, October 21, 2016 03:50 - CONCLUSION: 1. NGT in the stomach. 2. General paucity of small bowel gas. This finding is nonspecific and occasionally may reflect fluid-filled loops of bowel. Otherwise, no dilated bowel loops to suggest significant ileus or obstruction. Kev Vergara MD Transcranial Doppler Study Complete 10/20/16 06 Signed Impressions: Service Date/Time: October 07:54 - CONCLUSION: Slight interval elevation of flow velocity measurements and ratio on the left Yosvany Polk MD Liver Ultrasound 10/19/16 0000 Signed Impressions: Service Date/Time: Wednesday, October 19, 2016 11:20 - CONCLUSION: 1. Sludge filled gallbladder with thickened wall. 2. Moderate size bilateral pleural effusions and mild upper abdominal ascites. Santos Vazquez MD Cerebral Arteriogram 10/19/16 0000 Signed Impressions: Service Date/Time: Wednesday, October 19, 2016 12:47 - CONCLUSION: Uncomplicated cerebral arteriography with spasmolytic therapy as described in detail above. Yosvany Polk MD Head CT 10/17/16 0000 Signed Impressions: Service Date/Time: Monday, October 17, 2016 15:06 - CONCLUSION: Ventricles are slightly larger without ventriculostomy. Edema in the left hemisphere the brain herniating through the operative site. Remington Woodward MD FACR Infusion Non-thrombolysis 10/14/16 1103 Signed Impressions: Service Date/Time: Friday, October 14, 2016 10:21 - CONCLUSION: 1. Uncomplicated infusion for spasmolysis Harvey Morejon MD Neck CTA 10/07/16 0000 Signed Impressions: Service Date/Time: Friday, October 07, 2016 15:03 - CONCLUSION: 1. Mild carotid bulb atherosclerotic calcification bilaterally. However, no significant stenosis is present in either internal carotid artery. 2. Paranasal sinus mucoperiosteal thickening. 3. Please refer to brain CTA report for description of the intracranial findings. Yosvany Ramirez MD Head CTA 10/07/16 0000 Signed Impressions: Service Date/Time: Friday, October 07, 2016 15:03 - CONCLUSION: 1. 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 2. Large left subdural hematoma measuring 1.3 cm in depth with a significant, 1.6 cm left to right subfalcine shift. Joni Shelton MD Physical Exam GENERAL: Seadted on the vent, NAD SKIN: Warm and dry. Has red papular rash in BUE and BLE and lower trunk, lateral trunk HEAD: Incision healing with several areas that have eschar, no drainage, no redness, has dry dressing in place EYES: [place] conjunctiva. No petechia or hemorrhage. No scleral icterus. No injection or drainage. EARS, NOSE AND THROAT: Nose without bleeding or purulent nasal discharge. Slightly dry oral mucosa NECK: Has dry dressing over previous trach site CARDIOVASCULAR: Regular rate and rhythm. No murmurs, rubs or gallops heard RESPIRATORY: Coarse BS shereen ABDOMEN: Soft, non-tender, nondistended. Bowel sounds present and normoactive. No guarding. No rebound. No organomegaly. EXTREMITIES: No clubbing, has pedal edema. Has stable dry gangrene LIF and R ring finger. All his toes have stable dry gangrene. No calf tenderness. NEUROLOGICAL: Sedated PSYCHIATRIC: Unable to assess LINE: PIV with no evidence of infection Assessment & Plan Remarks IMPRESSION Fevers since 11/02, resolved 2 BC with 2 different Coag Neg Staph, ?real, no lines now - last line removed 10/30 - ?contaminant S/P coiling aneurysm S/P craniectomy, decompression, evacuation of SDH Respiratory failure, S/P trach, on T-piece Rash likely drug eruption, ?Abx - B-lactam, ?Dilantin LV dysfunction Recurrent fevers, resolved Vomiting, better Bleeding trach, has infiltrates on his CT chest, ?from blood - no fever, he finished course of Abx for PNA last week RECOMMENDATION For bronch - spoke with RN, will have CCM send bronch specimen today Monitor temps CBC in AM Monitor progress Spoke with D/W Mitra Sears MD Nov 29, 2016 11:27
[2016-11-29] MEDS ORDERED: HYDROmorphone HCL PF 0.5 MG/0.5 ML SYRINGE IV PUSH PRN (12:30)
[2016-11-29] MEDS ORDERED: ROCURONIUM INJ 50 MG/5 ML VIAL ONE ×2 (12:51→13:30)
--- NOTE | 2016-11-29 19:04 | PD.PROCEDR ---
Procedure Note Procedure Percutaneous Dilation Tracheostomy Tube Placement Diagnosis: Acute on chronic respiratory failure Indications: Acute on chronic respiratory failure. This patient has a history of tracheostomy dependence who recently presented back to the ICU with massive hemoptysis, was intubated through the mouth further workup and management of his hemoptysis, and now requires repeat tracheostomy for chronic respiratory failure Anesthesia: versed, fentanyl Neuromuscular Blockade: rocuronium Anesthesia was provided by the bedside RN Description of the Procedure: The patient was sedated and paralyzed. The patient was positioned in the supine position with a chest roll. The patient's neck was slightly extended. Landmarks were palpated and the anatomy of the anterior neck was deemed normal. A time out procedure was performed. The patient was placed on a volume control mode of ventilation, on 100% FiO2. The patient was prepped and draped sterilely. A bronchoscope was inserted into the endotracheal tube for endoscopic guidance (see separate bronchoscopy procedure note). Under direct bronchoscopic guidance, the cuff of the endotracheal tube was deflated and the endotracheal tube was retracted to a level above the level of the skin incision. A 16g angiocath was easily and atraumatically inserted into the prior stoma area until it was well-visualized in the lumen of the trachea. A 0.052 in diameter J-shaped guidewire was advanced through the catheter into the lumen of the trachea, under direct bronchoscopic visualization. Using a modified Seldinger technique, a 14 Fr, 4.5 cm introducer dilator was used, followed by a Blue Rhino Percutaneous Tracheostomy Dilator, and finally a 28 Fr tracheostomy loading catheter with 8.0 Cuffed Shiley tracheostomy tube. The loading catheter and guidewire were removed and the tracheostomy tube was confirmed in the lumen of the trachea with bronchoscopy, end-tidal CO2, and returning volumes on the ventilator. The tracheostomy was sewn to the skin with interrupted 2.0 Prolene sutures, and a tracheostomy tie was applied to the skin. There were no immediate complications. There was minimal EBL. A chest x-ray has been ordered. Copy Director: Rodriguez Collazo MD I personally performed the procedure. Walter Sullivan MD Nov 29, 2016 19:04
[2016-11-29] MEDS: MELATONIN 5 MG TAB PO SCH (21:00)
[2016-11-30] VITALS (22 sets, daily range): BP systolic 119–144; BP diastolic 58–85; PULSE 70–100; RESP 20–22; TEMP 98–99.2; O2SAT 97–100
[2016-11-30] MEDS: DILTIAZEM HCL 90 MG TAB PO SCH ×4 (00:26→17:52)
[2016-11-30] MEDS: METOCLOPRAMIDE HCL 10 MG/2 ML VIAL IV PUSH SCH ×3 (02:52→17:52)
[2016-11-30] MEDS: LACTATED RINGER'S 1000 ML INJ 1,000 ML IV SCH ×2 (03:15→15:56)
[2016-11-30] MEDS: CHLORHEXIDINE GLUCONATE 2 % 1 PACK (2 CLOTHS) TOP SCH (04:00)
[2016-11-30 04:44] LABS: AUTOMATED NEUTROPHIL # 6.7 TH/MM3 (1.8-7.7); BASOPHIL # 0.1 TH/MM3 (0-0.2); BASOPHIL % 0.6 % (0.0-2.0); LYMPH % 13.4 % (9.0-44.0); LYMPHOCYTE # 1.1 TH/MM3 (1.0-4.8); MEAN CELL VOLUME 91.5 FL (80.0-100.0); MEAN CORPUSCULAR HEMOGLOBIN 30.8 PG (27.0-34.0); MEAN CORPUSCULAR HGB CONC 33.6 % (32.0-36.0); MONO % 6.9 % (0.0-8.0); NEUT % 79.1 % (16.0-70.0); PLATELET COUNT 193 TH/MM3 (150-450); RED BLOOD COUNT 2.02 MIL/MM3 (4.50-5.90); RED CELL DISTRIBUTION WIDTH 15.2 % (11.6-17.2); WHITE BLOOD COUNT 8.4 TH/MM3 (4.0-11.0)
[2016-11-30 05:08] LABS: HEMATOCRIT 18.5 % (39.0-51.0); HEMO FLAGS DIFF FINAL
[2016-11-30] MEDS: BENEPROTEIN POWDER 1 PACK G-TUBE SCH ×6 (09:00→17:52)
[2016-11-30] MEDS: LANSOPRAZOLE SOLUTAB 30 MG TAB NG SCH (09:27)
[2016-11-30] MEDS: levETIRAcetam 500 MG/5 ML UDC NG SCH ×2 (09:27→21:22)
[2016-11-30] MEDS: FUROSEMIDE 40 MG/5 ML UNIT DOSE CUP NG SCH (09:27)
[2016-11-30] MEDS: LACTOBACILLUS ACIDOPHILUS TAB PO SCH ×3 (09:27→17:52)
[2016-11-30] MEDS: SODIUM CHLORIDE 0.9% FLUSH 10 ML FLUSH IV FLUSH SCH ×2 (09:28→21:22)
[2016-11-30] MEDS: CHLORHEXIDINE 0.12% (ORAL KIT) 15 ML CUP MT SCH ×2 (09:29→21:22)
[2016-11-30] MEDS: ARTIFICIAL TEARS OPTH SOLN 15 ML BTL EACH EYE SCH ×3 (09:29→17:52)
[2016-11-30] MEDS: BACITRACIN TOP OINT 15 GM TUBE TOPICAL SCH ×2 (09:29→21:23)
[2016-11-30] MEDS: POVIDONE IODINE 10% OINT 30 GM TUBE TOPICAL SCH (09:31)
--- NOTE | 2016-11-30 11:00 | HHI.CCPN ---
Subjective Remarks/Hospital Course 10/07: 56-year-old male presents with intracranial bleed. Patient was transferred from [facility] at [facility]. As per the paramedics and the nurse who assisted the patient said that patient earlier this morning was coming down the stairs when he started feeling some left-sided weakness and numbness. He called 911 and by the time EMS arrived they detected some deficit and called a stroke alert. Patient was taken to [facility]. When patient arrived his mental status started to decline and he was intubated emergently in the ER. A CAT scan of the head showed subarachnoid and subdural bleed. He was taking emergently to an angio suite for coiling of the aneurysm and later on to OR for subdural hematoma evacuation. 10/08: Remains sedated, orally intubated on mechanical ventilation. Arouses off sedation and following commands with both upper extremities earlier. Ventriculostomy in place. ICP 7, CPP mid 80s. 10/09: Remains sedated, orally intubated on mechanical ventilation. Arouses off sedation and follows commands with both upper extremities. Ventriculostomy in place. 10/10: Remains sedated, orally intubated on mechanical ventilation. Arouses off sedation and follows commands and both upper extremities. Ventriculostomy in place. ICP 5. Failed C Pap trial yesterday. 10/11: Extubated on 10/10, tolerating well. Awake and alert. Appears confused, moving all 4 extremities. Ventriculostomy discontinued today by neurosurgery 10/13: Patient has developed severe vasospasm at the left MCA territory on TCD's that was treated with IV route verapamil 10/14: patient extubated overnight. was originally following commands and neuro intact. TCDs this morning with increase LIs over yesterday, particularly Left MCA territory. On my evaluation early this morning, patient was aphasic, not moving the right side of his body, not following commands. SBP 140s at that time. net 2L negative/24h and uop almost 1L/hr at the time. I immediately bolused with 2L NS iv, placed arterial and central lines, started phenylephrine , increased SBP to goal 200 - 220 mmHg. called interventional neuroradiology and accompanied patient down personally to IR for IA verapamil again. I remained with the patient managing his hemodynamics down in IR and providing anxiolysis IV. I accompanied patient back up to [facility] where patient again was neuro intact and following commands. Sodium downtrending to 135 and urine studies and serum osms suggestive of urine sodium losses and high uop. added Florinef to mitigate sodium losses, and increased mivf to 500cc/hr to maintain euvolemia. later in the day patient decompensated requiring intubation for hyoxemia, cxr suggestive of pulmonary edema. 2d echo with evidence of EF 40%, septal hypokinesis, moderate MR. On levo, vaso, phenylephrine. difficult to get to goal SBP 200 mmHg, likely due to myocardial dysfunction. decreased goal to 180 - 200 mmHg to balance cardiac vs. neurologic goals. 10/15 Patient was discussed with Dr. Sullivan at shift change. Isuprel was initiated in effort to improve cardiac output as dobutamine not available and concerned with use of milrinone given long half life. Systolic blood pressure was relatively stable with perhaps some modest improvement from 170s to 180s for several hours after initiation. Notified when patient became abruptly hypotensive despite vasopressin, levophed 20 mcg/min, Greyson-Synephrine 300 mcg/m. He was also hypoxemic with sats in 80s despite PCV with PEEP 8 and FiO2 100%, respiratory rate in the 30s. He had decreased breath sounds bilaterally and was concerned for air trapping so removed from mechanical ventilation and bagged without improvement. Placed patient back on mechanical ventilation and provide recruitment maneuvers and increased PEEP to 12 which resulted in improvement of sats to 88% to 92%. Ordered Flolan. Discontinued isuprel and initiated epinephrine. R radial art line would not draw blood . Performed u/s guided femoral artery stick to confirm hypoxemia on ABG given poor wave form on pulse ox and PaO2 was 58. Placed new L radial art line and this resulted in ~ 30 point increase in SBP relative to prior line but patient ultimately on vasopressin, levophed 30 micrograms per minute, Greyson-Synephrine 300 micrograms per minute, epinephrine 12 mcg/min and unable to maintain target pressure (SBP in 150s). Given calcium chloride. patient with shaking movements all extremities, pupils 2mm and sluggish, no eye deviation. Rigors seemed most likely but unable to emergently rule out seizures so loaded with fosphenytoin to avoid secondary injury from seizure activity. WBC increasing and concern for HCAP so pancultured and placed on cefepime, vancomycin, azithromycin. Hydrocortisone 100 mg IV every 8 hours initiated due to concern for septic shock in a patient who has been refractory to all other above measures. Patient is to hemodynamically unstable and hypoxic for transport for neurologic imaging. Urine output has declined to 180-200 ML's per hour. Back off maintenance IV fluids to 200 ML's per hour. Bedside echo demonstrates decreased LV function with normal RV contractility and collapsible IVC suggesting ongoing maintenance fluid administration is appropriate. 10/15 additional visit: continued to deteriorate throughout the day. Seen multiple times. hypoxic on 100% fio2, flolan. required nimbex drip to maintain. repeat bedside critical care ultrasound still demonstrates severe LV dysfunction , decompressed RV, IVC more dilated than previous echo overnight, however still with respiratory variation. femoral arterial line placed with better waveform and higher pressure (likely SVR too high to allow accurate measurement of radial pressure). Pulse contour analysis without stroke volume variation, CI 3.6. SV 52mL. trialed additional albumin without improvement in hemodynamics. uop slower than before, but still significant salt wasting in the urine- sodium dropped to 125 from 132 despite already on 3% nacl infusion and aggressive sodium replacements. forced to give 23% nacl and salt tabs. declining clinically despite maximal therapy. 10/16: continues to be maximally critically ill. LV dysfunction persists. starting to get volume overloaded, but given concern for ongoing cerebral vasospasm, unable to actively diurese patient. sodium wasting persists, but uop downtrending slightly. very hypokalemic today, likely due to steroids. remains intubated, sedated, paralyzed, on flolan. CXR today appears worse with worsening airspace disease. Lactate remains slightly elevated, confirming persistent shock. 10/17: Lung infiltrates dense bilaterally, reflected in shunting and problems with oxygenation. Developed vasospasm on TCDs and required angiogram and intra- arterial verapamil again today. 10/18: SBP 160 - 170 range. FiO2 0.55. BNP > 5000. Not tolerating attempts at maintaining higher BP due to worsening heart failure. Several episodes of vasospasm. Watch daily TCDs closely. Sputum no growth. 10/19: Tmax 99.8. Currently 99. Remains on 4 vasopressors and epoprostenol 10/20: Yesterday. Returned IR for intra-arterial calcium channel jose infusion for vasospasm. Transcranial Dopplers today Still pending. Remains on significant vasopressor support. 10/21: Good response to diuresis, check BNP. TCDs pending. Heart failure remains a major problem. 10/22: CVP 21 - 22, finger tips blue, digits pale white despite high dose milrinone dilation. Greyson and vaso much reduced. Will try diltiazem gtt for digital ischemia. Urine remains > 200/hr and proximal limbs are well perfused. This digital ischemia appears to be a local phenomenon ala Raynaud's. New subcutaneous emphysema right anterior chest wall. 10/23: Old CVL removed. Fingertips remain marginal, some necrotic despite diltiazem and milrinone treatment for digital ischemia. Cardiac output > 7 liters/min and urine copious, confirming good perfusion pressure and flow. This continues to be a local phenomenon of the digits ala Raynaud's. We are trying to wean vasopressors off but are required to maintaining a cerebral perfusion pressure suitable for the treatment of aneurysmal subarachnoid bleed. Frankly, the importance of brain function eclipses fingertips. 10/24: Afebrile. Well perfused except for index finger left hand, few tips fingers right. Arms and hands warmer with resolving circumferential edema. Diltiazem and milrinone gtt continue. Greyson to 10 mics/min. 10/25: Digits are warm and well perfused except left index and right 4th fingertips; demarcated and not viable. Dry. Diltiazem and milrinone infusions continue to help reverse digital ischemia. 10/26: Forced diuresis continues and BP remains nicely elevated. Hands and digits warm aside from left index and right 4th fingertips which have demarcated. 10/27: Good response to diuretics. Perfusion pressure and documented flow excellent. Continue to wean vent. 10/28: Start SBTs. Fluid balance back toward normal. 10/29: Tolerating SBTs. Lowering sedation. Edema resolving. 10/30: Tolerating tube feeds, will taper off TPN and remove central line. Continue diuretics. 10/31: net -3L over 24h. mental status at baseline. tolerating CPAP, but does not have the mental status to protect airway. will likely need trach/peg. placement will be a problem due to lack of funding. 11/01: no changes or improvements. discussed with yesterday and she "does not want any more setbacks" and would prefer trach versus trial of extubation. I agree with her assessment. plan for trach today. placement is still a significant problem. net -2L/24h. 11/02: wbc uptrending, febrile. antonio cultured, started empiric abx today. failed SBT overnight and placed back on rate. 11/03: Tolerating CPAP today, following commands. Low-grade fever cultures pending. WBC count normal today 11/04: Remains on TPs since yesterday. Neuro exam remains stable. Follows commands weakly. Na 152 11/05: Remains off vent for 48 hours now. Sitting up in stretcher chair today. Na improved to 149. remains weak but improving 11/06: Continues to tolerate TPs well. Neuro exam unchanged. Sodium 148 today. Continues to spike intermittent fever Tmax 102.7. 11/07: Continued fevers, no leukocytosis. 11/08: Stable for replacement of bone flap. 11/09: Getting a bit excessively diuresed, will decrease lasix and convert to PO. Fingertips and toes demarcating as expected. No immediate action required except for continued diltiazem therapy. Clearly a Raynaud's type digital ischemia as peripheral perfusion and urine output indicated excellent peripheral perfusion. 11/10: Tracks with eyes today, nods to questions. Failed swallow again. 11/11: Plan for PEG, GI consulted. Bone flap replacement on hold due to blood cultures and fever. 11/12: May get PEG today, Bone flap to be replaced coming week per Dr. Perry. Afebrile no white count 11/13: Neuro exam unchanged. Na was 150 yesterday, repeat CMP pending. Left flap remains sunken 11/14: emesis overnight with ? aspiration event. no increased O2 requirement, but fever to 102.5 today. recultured. no complaints from patient. 11/15: No changes. still low suspicion for infection. Awaiting ID clearance for bone flap replacement. also awaiting placement 11/16: Placed on full ventilator support overnight for acute hypoxemic respiratory failure due to mucous plugging. Mucomyst added. Not on any sedation. Chest x-ray back to baseline-no need a bronchoscopy at this time, but will do if there is recurrent plugging. Will check sputum culture, and trach site culture 11/17: Breathing comfortably on the vent, on CPAP now. Off all sedation. We'll attempt T piece yesterday. Sodium normal 11/18: Currently tolerating TP. Patient had a few episodes of nausea vomiting. KUB shows ileus. Overnight was started on Reglan IV and when necessary Zofran. We'll keep nothing by mouth until ileus resolved. 11/19: Back on vent rate due to poor spontaneous effort. Hgb down 2 gms - looks like dilution; follow closely. VS without change. Ileus has resolved. 11/20: ABIs normal with normal pressure. Inflow satisfactory to all limbs. GI tract working well. 11/21: Tmax 99.1. Positive BM from fecal containing device. Tolerating t piece 24 hours. Tube feeds are at goal. Okay for OR from ID standpoint 11/22 currently resting in bed in no acute distress. On TP since 48 hours. Tube feeds at goal. 11/23: Resting in bed on T piece and 72 hours. Tube feeding at goals. Cleared from ID for plastics. 11/26: rapid response for massive hemoptysis. Patient rapidly reintubated through mouth and trach tube removed at same time. No bleeding from the trach stoma or above. All blood is coming from below. Bronchoscopy demonstrated large clots in both left and right mainstems. Right side clot 2 x 2 x 3 cm. Finally suctioned clear enough to inspect - no bleeding source found. Will keep on vent with PEEP 12 and heavy sedation. Plts 380,000, INR 1.0 11/27: CTA reviewed. He appears to bee bleeding from the anterior segment of the right upper lobe, which is displaced inferiorly by apical bullous disease. 11/28: remains sedated and paralyzed. still requiring active transfusions. but no longer hypoxic and bloody secretions are much less. 11/29: overnight ett became dislodged leading to hypoxia, bradycardia, PEA arrest. ~10min CPR with ROSC and reintubation. this morning, off sedation, opens eyes spontaneously but no other movements. repeat CTA chest without evidence of extravasation from area of massive hemoptysis. Subjective 11/30: Resting in bed in no acute distress. Arousable and follows commands. Tolerating tube feed. Afebrile. Objective Vital Signs Date Time Temp Pulse Resp B/P (MAP) Pulse Ox O2 Delivery O2 Flow Rate FiO2 11/30/16 10:51 98.8 79 20 130/64 100 11/30/16 08:05 50 11/26/16 19:00 Mechanical Ventilator 11/26/16 15:45 6.00 Intake and Output 11/30/16 11/30/16 12/01/16 08:00 16:00 00:00 Intake Total 1427 ml 350 ml Output Total 475 ml Balance 952 ml 350 ml Result Diagram: 11/30/16 0359 11/28/16 0344 Other Results Microbiology Date/Time Source Procedure Growth Status 11/15/16 05:20 Blood Peripheral Aerobic Blood Culture - Final NO GROWTH IN 5 DAYS Complete 11/15/16 05:20 Blood Peripheral Anaerobic Blood Culture - Final NO GROWTH IN 5 DAYS Complete 11/16/16 06:00 Sputum Endotracheal Gram Stain - Final Complete 11/16/16 06:00 Sputum Endotracheal Sputum Culture - Final HEAVY GROWTH NORMAL RESPIRATORY YOAN Complete 11/06/16 13:00 Urine Random Urine Urine Culture - Final <10,000 CFU/ML GRAM POSITIVE YOAN Complete 11/16/16 11:13 Wound Neck Gram Stain - Final Complete 11/16/16 11:13 Wound Neck Wound Culture - Final HEAVY GROWTH NORMAL SKIN YOAN... Complete Imaging Last Impressions Chest X-Ray 11/28/16 0000 Signed Impressions: Service Date/Time: Monday, November 28, 2016 21:56 - CONCLUSION: Stable bilateral airspace disease and COPD. ET tube above the jenna with now a nasogastric tube to the midline into the stomach. Kurt Ureña MD Chest CT 11/28/16 0000 Signed Impressions: Service Date/Time: Tuesday, November 29, 2016 05:13 - CONCLUSION: 1. Patchy alveolar disease characteristic of edema or pneumonia. 2. Severe emphysema 3. Gastrojejunostomy tube looped in the stomach Harvey Morejon MD Chest/Thorax CTA 11/26/16 0000 Signed Impressions: Service Date/Time: Saturday, November 26, 2016 20:18 - CONCLUSION: 1. Extensive filling defects within the right central bronchial tree characteristic of endobronchial hemorrhage. 2. Consolidating airspace disease in the right upper lobe and right lower lobe characteristic of hemorrhage and post obstructive lung consolidation. 3. Right bronchial artery is identified extending to the central right bronchial region 4. Advanced COPD. Nasir Amanda MD Abdomen X-Ray 11/19/16 0600 Signed Impressions: Service Date/Time: Saturday, November 19, 2016 02:44 - CONCLUSION: Unchanged bowel gas pattern potentially relating to an ileus. Santos Crockett Jr., MD Transcranial Doppler Study Complete 10/20/16 0600 Signed Impressions: Service Date/Time: October 07:54 - CONCLUSION: Slight interval elevation of flow velocity measurements and ratio on the left Yosvany Polk MD Liver Ultrasound 10/19/16 0000 Signed Impressions: Service Date/Time: Wednesday, October 19, 2016 11:20 - CONCLUSION: 1. Sludge filled gallbladder with thickened wall. 2. Moderate size bilateral pleural effusions and mild upper abdominal ascites. Santos Vazquez MD Cerebral Arteriogram 10/19/16 0000 Signed Impressions: Service Date/Time: Wednesday, October 19, 2016 12:47 - CONCLUSION: Uncomplicated cerebral arteriography with spasmolytic therapy as described in detail above. Yosvany Polk MD Head CT 10/17/16 0000 Signed Impressions: Service Date/Time: Monday, October 17, 2016 15:06 - CONCLUSION: Ventricles are slightly larger without ventriculostomy. Edema in the left hemisphere the brain herniating through the operative site. Remington Woodward MD FACR Infusion Non-thrombolysis 10/14/16 1103 Signed Impressions: Service Date/Time: Friday, October 14, 2016 10:21 - CONCLUSION: 1. Uncomplicated infusion for spasmolysis Harvey Morejon MD Neck CTA 10/07/16 0000 Signed Impressions: Service Date/Time: Friday, October 07, 2016 15:03 - CONCLUSION: 1. Mild carotid bulb atherosclerotic calcification bilaterally. However, no significant stenosis is present in either internal carotid artery. 2. Paranasal sinus mucoperiosteal thickening. 3. Please refer to brain CTA report for description of the intracranial findings. Yosvany Ramirez MD Head CTA 10/07/16 0000 Signed Impressions: Service Date/Time: Friday, October 07, 2016 15:03 - CONCLUSION: 1. 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 2. Large left subdural hematoma measuring 1.3 cm in depth with a significant, 1.6 cm left to right subfalcine shift. Joni Shelton MD Objective Remarks GENERAL: 56-year-old male. Currently on ventilator via tracheostomy HEAD: Status post left craniectomy. Left flap sunken, Incision healing well EYES: 3 mm bilaterally and reactive NECK: trach site is clean dry and intact. CARDIOVASCULAR: RRR. S1, S2 no S4. Without murmur RESPIRATORY: TP. Diffuse rhonchi and mobile secretions. bloody secretions are improving. GASTROINTESTINAL: Abdomen soft, non-tender, nondistended. No guarding. MUSCULOSKELETAL: Ischemic changes worst to left index finger tip, right 4th fingertip, and majority of R toes. Demarcating, dry. NEURO EXAM: Cranial nerves II through XII grossly intact.Right UE weaker than left, follows commands x4. SKIN: Stage IV decubitus ulcer 4 x 2 bilateral sacral. Procedures 10/13 Four-vessel cerebral angiography with verapamil treatment of vasospasm A/P Assessment and Plan Neuro/Psych Status post left frontotemporal parietal craniectomy 10/08 for evacuation subdural hematoma/duraplasty Left subdural hematoma - 1.3 cm with 1.6 shift left to right Subarachnoid hemorrhage Alvarado and Rodriguez 5, Carroll grade 4 - left P-comm status post 4 coiling 10/08 Hypoxic-Ischemic Encephalopathy - Nimodipine completed 21 days. Initiated 10/13. - Levetiracetam 500 mg per tube q12h. - 10/13 and 10/14 and 10/17) 10/19 left MCA territory vasospasm, status post successful verapamil treatment by IR with 20 mg verapamil - 10/17 CT brain - less hemisphere edema with herniation through left craniotomy site, now improved. - Dr. Perry/neurosurgery. Plan to replace bone flap okayed by infectious disease. - hold sedation until neuro exam improves. frequent neuro checks. Respiratory: Acute hypoxic Respiratory failure secondary to mucous plugging Possible healthcare associated pneumonia ARDS- resolved Noncardiogenic/neurogenic pulmonary edema- resolved. Chronic respiratory failure requiring tracheostomy Massive Hemoptysis Aspiration pneumonitis -- PRVC 20/500/0.9/12/45 - Ventilator bundle -- Albuterol/ipratropium aerosols every 6 hours with albuterol aerosols every [address] angiogram chest/neck revealed right centrilobular bleeding likely source right bronchial artery. Repeat CT chest 11/29/no visualization of active bleeding. -- Follow-up on sputum culture -- s/p Trach Dr. Sullivan/Dr. Collazo 11/01 #8 [facility]. --Redo trach 11/[address] Crockett Cardiovascular: Septic and cardiogenic shock- resolved. LV dysfunction secondary to SAH - persistent, now resolved Elevated troponin- secondary to SAH, unlikely to be ACS. - resolved. Pulmonary hypertension s/p PEA arrest 11/28 after ett dislodgement, hypoxic arrest Continue free water 200mL per tube q6h. Echocardiogram 10/14/16 revealed EF 40-45%. Septal hypokinesis. Moderate MR. Severe pulmonary hypertension with pulmonary artery pressures estimated 61 mmHg Limited Echo 11/06: LVEF 60-65%, Trivial mitral and tricuspid regurgitation, No vegetations noted. Continue diltiazem's 90 mg by mouth every 6 hours and furosemide 20 mg daily currently off vasopressors. Renal: Cerebral Salt Wasting/SIADH-resolved now hypernatremic Strict I/Os. See FEN below. Creatinine currently within normal limits -> resolved. Monitor urine output FEN/GI: Ileus Hypokalemia Elevated transaminases Hyperammonemia - Currently on Glucerna 1.5 goal 60 cc an hour - free water per tube - ICU electrolyte protocol. aggressively replace potassium losses. - Lansoprazole 30 mg by tube daily for GI prophylaxis - Continue bowel regimen - Continue PEG feeding. s/p PEG 11/12/16 Heme/ID: Septic Shock- resolved. Possible HCAP New Fever, leukocytosis, staph epi bacteremia - limited Echo to evaluate vegetation-neg. ID following - Follow-up on sputum culture, trach site culture - Digital Ischemia with necrosis, conservative management - s/p Diltiazem and milrinone infusions - Digits have demarcated, allow auto amputation. Cardizem PO currently and 90 mg every 6 hours (for digital ischemia, Raynaud's) Continue bacitracin twice a day to affected areas Pertinent cultures 10/15 - blood cultures - 1 out of 4 anaerobic gram-negative cocci possibly Veillonella 10/15 - sputum - beta strep not A, strep species 10/19 cultures NG 10/21 1/4 bottles blood cultures coag negative staph. Culture 11/01. coag neg stah 03/19 bottles 11/16 sputum in trach site cultures negative s/p levofloxacin x 7 days end 11/15/16 Fluconazole discontinued per infectious disease Endocrine: Presumed Adrenal Insufficiency Discontinued fludrocortisone 10/18. Sliding-scale insulin with NovoLog -Accu-Cheks every 4 hours to maintain euglycemia MSK: Stage IV bilateral sacral decubitus ulcers Xeroform/ABD secured with paper tape change daily PT evaluate and treat Prophylaxis: GI Prophylaxis - lansoprazole DVT Prophylaxis-- SCDs, d/c heparin subcutaneous hemoptysis Lines: - 10/14 right SC TLC, removed 10/22 - 10/14 right radial art line, removed 10/14 - 10/15 left radial art line, removed 10/16 - 10/22 left groin triple lumen placed, d/c 10/30 - d/c ramires. Critical care time 30 minutes Cyrus Boland MD Nov 30, 2016 11:00
[2016-11-30] MEDS ORDERED: GLUCAGON 1 MG/ML VIAL OTHER PRN (12:15)
[2016-11-30] MEDS ORDERED: DEXTROSE 50% IN WATER 50 ML VIAL(D50) IV PUSH PRN (12:15)
[2016-11-30] MEDS: COLLAGENASE OINT 30 GM TUBE TOPICAL SCH (13:31)
--- NOTE | 2016-11-30 15:45 | PD.WCN.NOT ---
Wound Consult Description: Follow up for sacral Deep tissue injury opened to full thickness wound to R and L buttock area. Communicated with: JOSE CRUZ Camejo and Doctor Kya [facility] Recommendation: Please cleanse buttock wounds with normal saline and apply Xeroform dressing in single layer just over wound beds . [place] skin prep to periwound before covering with an ABD pad and securing with tape.change dressing daily or PRN if saturated or dislodged. Continue to turn and reposition patient every 2 hours from left to right and PRN for comfort Additional Information: Patient seen on for follow up of wounds to bilateral buttocks.Positioned patient left side for assessment after holding tube feed and lowering head of bed, with the maximum assistance of Nell [address] [place] [address] and speech writer. Wounds to R and L buttock are open to air with [place] barrier cream in place. Patient is also noted with dignishield in place. Right buttock wound presents as full thickness skin loss measuring 4cm x 2cm x ~0.2cm with ~20% white tissue and ~40% red non granulation tissue and ~40% pink tissue noted in moist wound bed with jagged, well defined wound margins.Periwound is noted with slight blanchable erythema, but otherwise improved. Wound has no active drainage or odor. Left buttock wound presents as full thickness skin loss measuring 4cm x 1.5cmx ~0.2cm wound is noted with moist wound bed, no active drainage and no odor. Wound bed is ~10% white tissue ~40% pink tissue, and ~50% red non granulation tissue. with jagged well defined wound margins.Periwound presents with slight blanchable erythema, but otherwise periwound has improved Wounds were cleansed with NS and gauze prior to applying Xeroform gauze dressing just over wound beds to L and R buttock in a single layer. Sprayed periwound with [place] skin prep before applying ABD pad, secured with paper tape Patient is noted on a low airloss specialty surface with 2 staggered ultrasorbs underneath him for moisture and turn sheet for positioning. Recommendations for wound care have changed as noted above. Patient is being followed by wound care team. Positioned patient to his R side. Head of bed was positioned >30 degrees for resuming tube feed. Zina Rodney [facility] Nov 30, 2016 15:45
[2016-11-30] MEDS: RESP: ALBUTEROL 2.5 MG/IPRATROPIUM 0.5 MG NEB (SCH) NEB ×2 (16:07→20:33)
[2016-11-30 16:26] LABS: HEMATOCRIT 23.9 % (39.0-51.0); REVIEW FLAG FINAL
[2016-11-30 16:40] LABS: BICARBONATE 25.6 MEQ/L (21.0-32.0); MAGNESIUM 1.8 MG/DL (1.5-2.5); POTASSIUM 3.5 MEQ/L (3.5-5.1)
[2016-11-30] MEDS: INSULIN NovoLIN REGULAR SUPPLEMENTAL SCALE SQ SCH ×2 (17:00→21:00)
[2016-11-30] MEDS: POTASSIUM CHLOR 20 MEQ PREMIX 100 ML IV PRN (17:34)
[2016-11-30] MEDS: MELATONIN 5 MG TAB PO SCH (21:00)
[2016-12-01] VITALS (20 sets, daily range): BP systolic 119–148; BP diastolic 73–84; PULSE 68–80; RESP 20–21; TEMP 98.4–98.9; O2SAT 98–100
[2016-12-01] MEDS: DILTIAZEM HCL 90 MG TAB PO SCH ×4 (00:28→18:34)
[2016-12-01] MEDS: RESP: ALBUTEROL 2.5 MG/IPRATROPIUM 0.5 MG NEB (SCH) NEB ×4 (01:02→20:40)
[2016-12-01] MEDS: METOCLOPRAMIDE HCL 10 MG/2 ML VIAL IV PUSH SCH ×3 (02:08→18:33)
[2016-12-01] MEDS: POTASSIUM CHLOR 20 MEQ PREMIX 100 ML IV PRN ×2 (02:30→10:42)
[2016-12-01] MEDS: LACTATED RINGER'S 1000 ML INJ 1,000 ML IV SCH ×2 (03:33→14:30)
[2016-12-01] MEDS: CHLORHEXIDINE GLUCONATE 2 % 1 PACK (2 CLOTHS) TOP SCH (04:00)
[2016-12-01 05:11] LABS: AUTOMATED NEUTROPHIL # 6.4 TH/MM3 (1.8-7.7); BASOPHIL # 0.1 TH/MM3 (0-0.2); BASOPHIL % 0.6 % (0.0-2.0); HEMO FLAGS DIFF FINAL; LYMPH % 13.6 % (9.0-44.0); LYMPHOCYTE # 1.1 TH/MM3 (1.0-4.8); MEAN CELL VOLUME 88.7 FL (80.0-100.0); MEAN CORPUSCULAR HEMOGLOBIN 30.7 PG (27.0-34.0); MEAN CORPUSCULAR HGB CONC 34.6 % (32.0-36.0); MONO % 6.1 % (0.0-8.0); NEUT % 79.7 % (16.0-70.0); PLATELET COUNT 209 TH/MM3 (150-450); RED BLOOD COUNT 2.82 MIL/MM3 (4.50-5.90); RED CELL DISTRIBUTION WIDTH 16.6 % (11.6-17.2); WHITE BLOOD COUNT 8.1 TH/MM3 (4.0-11.0)
[2016-12-01 05:34] LABS: ANION GAP 8 MEQ/L (5-15); AST (GOT) 7 U/L (15-37); BICARBONATE 26.9 MEQ/L (21.0-32.0); BLOOD UREA NITROGEN 15 MG/DL (7-18); CHLORIDE 100 MEQ/L (98-107); GLOMERULAR FILTRATION RATE 369 ML/MIN (>89); MAGNESIUM 1.7 MG/DL (1.5-2.5); POTASSIUM 3.7 MEQ/L (3.5-5.1); SODIUM (NA) 135 MEQ/L (136-145)
[2016-12-01 05:36] LABS: ALT (GPT) 14 U/L (12-78)
[2016-12-01 05:37] LABS: ALKALINE PHOSPHATASE 93 U/L (45-117); TOTAL BILIRUBIN ADULT 0.4 MG/DL (0.2-1.0)
--- NOTE | 2016-12-01 06:32 | RADRPT ---
EXAM DATE/TIME: 12/01/2016 06:04 [facility] COMPARISON: CHEST SINGLE AP, November 28, 2016, 21:56. INDICATIONS : Short of breath. MEDICAL HISTORY : None. SURGICAL HISTORY : None. ENCOUNTER: Subsequent ACUITY: 2 weeks PAIN SCORE: Non-responsive. LOCATION: Bilateral chest FINDINGS: The cardiac silhouette is normal in transverse diameter. A tracheostomy tube is in place in the midli ne. There is right lower lobe atelectasis versus pneumonia. This is new when compared with the prior exam. There is prominence of the central pulmonary vasculature with indistinct vascular margins tomás tible with vascular congestion but no evidence of overt failure. CONCLUSION: 1. Worsening right basilar atelectasis versus pneumonia 2. Cardiomegaly and findings of vascular congestion without overt failure. There has been no signific ant change when compared to the prior exam. Harvey Morejon MD on December 01, 2016 at 6:29 Board Certified Radiologist. This report was verified electronically.
[2016-12-01] MEDS: INSULIN NovoLIN REGULAR SUPPLEMENTAL SCALE SQ SCH ×4 (08:00→21:00)
[2016-12-01] MEDS: CHLORHEXIDINE 0.12% (ORAL KIT) 15 ML CUP MT SCH ×2 (08:37→22:11)
[2016-12-01] MEDS: levETIRAcetam 500 MG/5 ML UDC NG SCH ×2 (08:37→22:10)
[2016-12-01] MEDS: BACITRACIN TOP OINT 15 GM TUBE TOPICAL SCH ×2 (08:38→22:10)
[2016-12-01] MEDS: POVIDONE IODINE 10% OINT 30 GM TUBE TOPICAL SCH (08:38)
[2016-12-01] MEDS: LACTOBACILLUS ACIDOPHILUS TAB PO SCH ×3 (08:38→18:34)
[2016-12-01] MEDS: LANSOPRAZOLE SOLUTAB 30 MG TAB NG SCH (08:38)
[2016-12-01] MEDS: FUROSEMIDE 40 MG/5 ML UNIT DOSE CUP NG SCH (08:38)
[2016-12-01] MEDS: BENEPROTEIN POWDER 1 PACK G-TUBE SCH ×6 (08:40→18:32)
[2016-12-01] MEDS: SODIUM CHLORIDE 0.9% FLUSH 10 ML FLUSH IV FLUSH SCH ×2 (08:40→22:11)
[2016-12-01] MEDS: ARTIFICIAL TEARS OPTH SOLN 15 ML BTL EACH EYE SCH ×3 (08:40→18:00)
[2016-12-01] MEDS: COLLAGENASE OINT 30 GM TUBE TOPICAL SCH (08:40)
--- NOTE | 2016-12-01 13:50 | HHI.CCPN ---
Subjective Remarks/Hospital Course 10/07: 56-year-old male presents with intracranial bleed. Patient was transferred from [facility]. As per the paramedics and the nurse who assisted the patient said that patient earlier this morning was coming down the stairs when he started feeling some left-sided weakness and numbness. He called 911 and by the time EMS arrived they detected some deficit and called a stroke alert. Patient was taken to [facility]. When patient arrived his mental status started to decline and he was intubated emergently in the ER. A CAT scan of the head showed subarachnoid and subdural bleed. He was taking emergently to an angio suite for coiling of the aneurysm and later on to OR for subdural hematoma evacuation. 10/08: Remains sedated, orally intubated on mechanical ventilation. Arouses off sedation and following commands with both upper extremities earlier. Ventriculostomy in place. ICP 7, CPP mid 80s. 10/09: Remains sedated, orally intubated on mechanical ventilation. Arouses off sedation and follows commands with both upper extremities. Ventriculostomy in place. 10/10: Remains sedated, orally intubated on mechanical ventilation. Arouses off sedation and follows commands and both upper extremities. Ventriculostomy in place. ICP 5. Failed C Pap trial yesterday. 10/11: Extubated on 10/10, tolerating well. Awake and alert. Appears confused, moving all 4 extremities. Ventriculostomy discontinued today by neurosurgery 10/13: Patient has developed severe vasospasm at the left MCA territory on TCD's that was treated with IV route verapamil 10/14: patient extubated overnight. was originally following commands and neuro intact. TCDs this morning with increase LIs over yesterday, particularly Left MCA territory. On my evaluation early this morning, patient was aphasic, not moving the right side of his body, not following commands. SBP 140s at that time. net 2L negative/24h and uop almost 1L/hr at the time. I immediately bolused with 2L NS iv, placed arterial and central lines, started phenylephrine , increased SBP to goal 200 - 220 mmHg. called interventional neuroradiology and accompanied patient down personally to IR for IA verapamil again. I remained with the patient managing his hemodynamics down in IR and providing anxiolysis IV. I accompanied patient back up to [facility] where patient again was neuro intact and following commands. Sodium downtrending to 135 and urine studies and serum osms suggestive of urine sodium losses and high uop. added Florinef to mitigate sodium losses, and increased mivf to 500cc/hr to maintain euvolemia. later in the day patient decompensated requiring intubation for hyoxemia, cxr suggestive of pulmonary edema. 2d echo with evidence of EF 40%, septal hypokinesis, moderate MR. On levo, vaso, phenylephrine. difficult to get to goal SBP 200 mmHg, likely due to myocardial dysfunction. decreased goal to 180 - 200 mmHg to balance cardiac vs. neurologic goals. 10/15 Patient was discussed with Dr. Sullivan at shift change. Isuprel was initiated in effort to improve cardiac output as dobutamine not available and concerned with use of milrinone given long half life. Systolic blood pressure was relatively stable with perhaps some modest improvement from 170s to 180s for several hours after initiation. Notified when patient became abruptly hypotensive despite vasopressin, levophed 20 mcg/min, Greyson-Synephrine 300 mcg/m. He was also hypoxemic with sats in 80s despite PCV with PEEP 8 and FiO2 100%, respiratory rate in the 30s. He had decreased breath sounds bilaterally and was concerned for air trapping so removed from mechanical ventilation and bagged without improvement. Placed patient back on mechanical ventilation and provide recruitment maneuvers and increased PEEP to 12 which resulted in improvement of sats to 88% to 92%. Ordered Flolan. Discontinued isuprel and initiated epinephrine. R radial art line would not draw blood . Performed u/s guided femoral artery stick to confirm hypoxemia on ABG given poor wave form on pulse ox and PaO2 was 58. Placed new L radial art line and this resulted in ~ 30 point increase in SBP relative to prior line but patient ultimately on vasopressin, levophed 30 micrograms per minute, Greyson-Synephrine 300 micrograms per minute, epinephrine 12 mcg/min and unable to maintain target pressure (SBP in 150s). Given calcium chloride. patient with shaking movements all extremities, pupils 2mm and sluggish, no eye deviation. Rigors seemed most likely but unable to emergently rule out seizures so loaded with fosphenytoin to avoid secondary injury from seizure activity. WBC increasing and concern for HCAP so pancultured and placed on cefepime, vancomycin, azithromycin. Hydrocortisone 100 mg IV every 8 hours initiated due to concern for septic shock in a patient who has been refractory to all other above measures. Patient is to hemodynamically unstable and hypoxic for transport for neurologic imaging. Urine output has declined to 180-200 ML's per hour. Back off maintenance IV fluids to 200 ML's per hour. Bedside echo demonstrates decreased LV function with normal RV contractility and collapsible IVC suggesting ongoing maintenance fluid administration is appropriate. 10/15 additional visit: continued to deteriorate throughout the day. Seen multiple times. hypoxic on 100% fio2, flolan. required nimbex drip to maintain. repeat bedside critical care ultrasound still demonstrates severe LV dysfunction , decompressed RV, IVC more dilated than previous echo overnight, however still with respiratory variation. femoral arterial line placed with better waveform and higher pressure (likely SVR too high to allow accurate measurement of radial pressure). Pulse contour analysis without stroke volume variation, CI 3.6. SV 52mL. trialed additional albumin without improvement in hemodynamics. uop slower than before, but still significant salt wasting in the urine- sodium dropped to 125 from 132 despite already on 3% nacl infusion and aggressive sodium replacements. forced to give 23% nacl and salt tabs. declining clinically despite maximal therapy. 10/16: continues to be maximally critically ill. LV dysfunction persists. starting to get volume overloaded, but given concern for ongoing cerebral vasospasm, unable to actively diurese patient. sodium wasting persists, but uop downtrending slightly. very hypokalemic today, likely due to steroids. remains intubated, sedated, paralyzed, on flolan. CXR today appears worse with worsening airspace disease. Lactate remains slightly elevated, confirming persistent shock. 10/17: Lung infiltrates dense bilaterally, reflected in shunting and problems with oxygenation. Developed vasospasm on TCDs and required angiogram and intra- arterial verapamil again today. 10/18: SBP 160 - 170 range. FiO2 0.55. BNP > 5000. Not tolerating attempts at maintaining higher BP due to worsening heart failure. Several episodes of vasospasm. Watch daily TCDs closely. Sputum no growth. 10/19: Tmax 99.8. Currently 99. Remains on 4 vasopressors and epoprostenol 10/20: Yesterday. Returned IR for intra-arterial calcium channel jose infusion for vasospasm. Transcranial Dopplers today Still pending. Remains on significant vasopressor support. 10/21: Good response to diuresis, check BNP. TCDs pending. Heart failure remains a major problem. 10/22: CVP 21 - 22, finger tips blue, digits pale white despite high dose milrinone dilation. Greyson and vaso much reduced. Will try diltiazem gtt for digital ischemia. Urine remains > 200/hr and proximal limbs are well perfused. This digital ischemia appears to be a local phenomenon ala Raynaud's. New subcutaneous emphysema right anterior chest wall. 10/23: Old CVL removed. Fingertips remain marginal, some necrotic despite diltiazem and milrinone treatment for digital ischemia. Cardiac output > 7 liters/min and urine copious, confirming good perfusion pressure and flow. This continues to be a local phenomenon of the digits ala Raynaud's. We are trying to wean vasopressors off but are required to maintaining a cerebral perfusion pressure suitable for the treatment of aneurysmal subarachnoid bleed. Frankly, the importance of brain function eclipses fingertips. 10/24: Afebrile. Well perfused except for index finger left hand, few tips fingers right. Arms and hands warmer with resolving circumferential edema. Diltiazem and milrinone gtt continue. Greyson to 10 mics/min. 10/25: Digits are warm and well perfused except left index and right 4th fingertips; demarcated and not viable. Dry. Diltiazem and milrinone infusions continue to help reverse digital ischemia. 10/26: Forced diuresis continues and BP remains nicely elevated. Hands and digits warm aside from left index and right 4th fingertips which have demarcated. 10/27: Good response to diuretics. Perfusion pressure and documented flow excellent. Continue to wean vent. 10/28: Start SBTs. Fluid balance back toward normal. 10/29: Tolerating SBTs. Lowering sedation. Edema resolving. 10/30: Tolerating tube feeds, will taper off TPN and remove central line. Continue diuretics. 10/31: net -3L over 24h. mental status at baseline. tolerating CPAP, but does not have the mental status to protect airway. will likely need trach/peg. placement will be a problem due to lack of funding. 11/01: no changes or improvements. discussed with yesterday and she "does not want any more setbacks" and would prefer trach versus trial of extubation. I agree with her assessment. plan for trach today. placement is still a significant problem. net -2L/24h. 11/02: wbc uptrending, febrile. antonio cultured, started empiric abx today. failed SBT overnight and placed back on rate. 11/03: Tolerating CPAP today, following commands. Low-grade fever cultures pending. WBC count normal today 11/04: Remains on TPs since yesterday. Neuro exam remains stable. Follows commands weakly. Na 152 11/05: Remains off vent for 48 hours now. Sitting up in stretcher chair today. Na improved to 149. remains weak but improving 11/06: Continues to tolerate TPs well. Neuro exam unchanged. Sodium 148 today. Continues to spike intermittent fever Tmax 102.7. 11/07: Continued fevers, no leukocytosis. 11/08: Stable for replacement of bone flap. 11/09: Getting a bit excessively diuresed, will decrease lasix and convert to PO. Fingertips and toes demarcating as expected. No immediate action required except for continued diltiazem therapy. Clearly a Raynaud's type digital ischemia as peripheral perfusion and urine output indicated excellent peripheral perfusion. 11/10: Tracks with eyes today, nods to questions. Failed swallow again. 11/11: Plan for PEG, GI consulted. Bone flap replacement on hold due to blood cultures and fever. 11/12: May get PEG today, Bone flap to be replaced coming week per Dr. Perry. Afebrile no white count 11/13: Neuro exam unchanged. Na was 150 yesterday, repeat CMP pending. Left flap remains sunken 11/14: emesis overnight with ? aspiration event. no increased O2 requirement, but fever to 102.5 today. recultured. no complaints from patient. 11/15: No changes. still low suspicion for infection. Awaiting ID clearance for bone flap replacement. also awaiting placement 11/16: Placed on full ventilator support overnight for acute hypoxemic respiratory failure due to mucous plugging. Mucomyst added. Not on any sedation. Chest x-ray back to baseline-no need a bronchoscopy at this time, but will do if there is recurrent plugging. Will check sputum culture, and trach site culture 11/17: Breathing comfortably on the vent, on CPAP now. Off all sedation. We'll attempt T piece yesterday. Sodium normal 11/18: Currently tolerating TP. Patient had a few episodes of nausea vomiting. KUB shows ileus. Overnight was started on Reglan IV and when necessary Zofran. We'll keep nothing by mouth until ileus resolved. 11/19: Back on vent rate due to poor spontaneous effort. Hgb down 2 gms - looks like dilution; follow closely. VS without change. Ileus has resolved. 11/20: ABIs normal with normal pressure. Inflow satisfactory to all limbs. GI tract working well. 11/21: Tmax 99.1. Positive BM from fecal containing device. Tolerating t piece 24 hours. Tube feeds are at goal. Okay for OR from ID standpoint 11/22 currently resting in bed in no acute distress. On TP since 48 hours. Tube feeds at goal. 11/23: Resting in bed on T piece and 72 hours. Tube feeding at goals. Cleared from ID for plastics. 11/26: rapid response for massive hemoptysis. Patient rapidly reintubated through mouth and trach tube removed at same time. No bleeding from the trach stoma or above. All blood is coming from below. Bronchoscopy demonstrated large clots in both left and right mainstems. Right side clot 2 x 2 x 3 cm. Finally suctioned clear enough to inspect - no bleeding source found. Will keep on vent with PEEP 12 and heavy sedation. Plts 380,000, INR 1.0 11/27: CTA reviewed. He appears to bee bleeding from the anterior segment of the right upper lobe, which is displaced inferiorly by apical bullous disease. 11/28: remains sedated and paralyzed. still requiring active transfusions. but no longer hypoxic and bloody secretions are much less. 11/29: overnight ett became dislodged leading to hypoxia, bradycardia, PEA arrest. ~10min CPR with ROSC and reintubation. this morning, off sedation, opens eyes spontaneously but no other movements. repeat CTA chest without evidence of extravasation from area of massive hemoptysis. 11/30: Resting in bed in no acute distress. Arousable and follows commands. Tolerating tube feed. Afebrile. Subjective 12/01: Afebrile. Since 6 AM, every hour with copious amounts of bright red blood per tracheostomy/TPs. IR for possible right bronchial artery embolization today. Noted likely culprit on CTA 11/26. Hasn't had active bleeding since then. Objective Vital Signs Date Time Temp Pulse Resp B/P (MAP) Pulse Ox O2 Delivery O2 Flow Rate FiO2 12/01/16 12:00 77 12/01/16 12:00 98.4 20 145/84 (104) 100 12/01/16 12:00 40 Intake and Output 12/01/16 12/01/16 12/02/16 08:00 16:00 00:00 Intake Total 1328 ml Output Total 275 ml Balance 1053 ml Result Diagram: 12/01/16 0453 12/01/16 0453 Other Results Microbiology Date/Time Source Procedure Growth Status 11/15/16 05:20 Blood Peripheral Aerobic Blood Culture - Final NO GROWTH IN 5 DAYS Complete 11/15/16 05:20 Blood Peripheral Anaerobic Blood Culture - Final NO GROWTH IN 5 DAYS Complete 11/16/16 06:00 Sputum Endotracheal Gram Stain - Final Complete 11/16/16 06:00 Sputum Endotracheal Sputum Culture - Final HEAVY GROWTH NORMAL RESPIRATORY YOAN Complete 11/06/16 13:00 Urine Random Urine Urine Culture - Final <10,000 CFU/ML GRAM POSITIVE YOAN Complete 11/16/16 11:13 Wound Neck Gram Stain - Final Complete 11/16/16 11:13 Wound Neck Wound Culture - Final HEAVY GROWTH NORMAL SKIN YOAN... Complete Imaging Last Impressions Chest X-Ray 12/01/16 0600 Signed Impressions: Service Date/Time: November 06:04 - CONCLUSION: 1. Worsening right basilar atelectasis versus pneumonia 2. Cardiomegaly and findings of vascular congestion without overt failure. There has been no significant change when compared to the prior exam. Harvey Morejon MD Chest CT 11/28/16 0000 Signed Impressions: Service Date/Time: Tuesday, November 29, 2016 05:13 - CONCLUSION: 1. Patchy alveolar disease characteristic of edema or pneumonia. 2. Severe emphysema 3. Gastrojejunostomy tube looped in the stomach Harvey Morejon MD Chest/Thorax CTA 11/26/16 0000 Signed Impressions: Service Date/Time: Saturday, November 26, 2016 20:18 - CONCLUSION: 1. Extensive filling defects within the right central bronchial tree characteristic of endobronchial hemorrhage. 2. Consolidating airspace disease in the right upper lobe and right lower lobe characteristic of hemorrhage and post obstructive lung consolidation. 3. Right bronchial artery is identified extending to the central right bronchial region 4. Advanced COPD. Nasir Amanda MD Abdomen X-Ray 11/19/16599 Signed Impressions: Service Date/Time: Saturday, November 19, 2016 02:44 - CONCLUSION: Unchanged bowel gas pattern potentially relating to an ileus. Santos Crockett Jr., MD Transcranial Doppler Study Complete 10/20/16599 Signed Impressions: Service Date/Time: October 07:54 - CONCLUSION: Slight interval elevation of flow velocity measurements and ratio on the left Yosvany Polk MD Liver Ultrasound 10/19/16 Signed Impressions: Service Date/Time: Wednesday, October 19, 2016 11:20 - CONCLUSION: 1. Sludge filled gallbladder with thickened wall. 2. Moderate size bilateral pleural effusions and mild upper abdominal ascites. Santos Vazquez MD Cerebral Arteriogram 10/19/16 Signed Impressions: Service Date/Time: Wednesday, October 19, 2016 12:47 - CONCLUSION: Uncomplicated cerebral arteriography with spasmolytic therapy as described in detail above. Yosvany Polk MD Head CT 10/17/16 Signed Impressions: Service Date/Time: Monday, October 17, 2016 15:06 - CONCLUSION: Ventricles are slightly larger without ventriculostomy. Edema in the left hemisphere the brain herniating through the operative site. Remington Woodward MD FACR Infusion Non-thrombolysis 10/14/16 1103 Signed Impressions: Service Date/Time: Friday, October 14, 2016 10:21 - CONCLUSION: 1. Uncomplicated infusion for spasmolysis Harvey Morejon MD Neck CTA 10/07/16 0000 Signed Impressions: Service Date/Time: Friday, October 07, 2016 15:03 - CONCLUSION: 1. Mild carotid bulb atherosclerotic calcification bilaterally. However, no significant stenosis is present in either internal carotid artery. 2. Paranasal sinus mucoperiosteal thickening. 3. Please refer to brain CTA report for description of the intracranial findings. Yosvany Ramirez MD Head CTA 10/07/16 0000 Signed Impressions: Service Date/Time: Friday, October 07, 2016 15:03 - CONCLUSION: 1. 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 2. Large left subdural hematoma measuring 1.3 cm in depth with a significant, 1.6 cm left to right subfalcine shift. Joni Shelton MD Objective Remarks GENERAL: 56-year-old male. Currently on ventilator via tracheostomy HEAD: Status post left craniectomy. Left flap sunken, Incision healing well EYES: 3 mm bilaterally and reactive NECK: trach site is clean dry and intact. Copious amount of bright red blood per ventilator device CARDIOVASCULAR: RRR. S1, S2 no S4. Without murmur RESPIRATORY: TP. Diffuse rhonchi and mobile secretions. bloody secretions are improving. GASTROINTESTINAL: Abdomen soft, non-tender, nondistended. No guarding. MUSCULOSKELETAL: Ischemic changes worst to left index finger tip, right 4th fingertip, and majority of R toes. Demarcating, dry. NEURO EXAM: Cranial nerves II through XII grossly intact.Right UE weaker than left, follows commands x4. SKIN: Stage IV decubitus ulcer 4 x 2 bilateral sacral. Procedures 10/13 Four-vessel cerebral angiography with verapamil treatment of vasospasm A/P Assessment and Plan Neuro/Psych Status post left frontotemporal parietal craniectomy 10/08 for evacuation subdural hematoma/duraplasty Left subdural hematoma - 1.3 cm with 1.6 shift left to right Subarachnoid hemorrhage Alvarado and Rodriguez 5, Carroll grade 4 - left P-comm status post 4 coiling 10/08 Hypoxic-Ischemic Encephalopathy - Nimodipine completed 21 days. Initiated 10/13. - Levetiracetam 500 mg per tube q12h. - 10/13 and 10/14 and 10/17) 10/19 left MCA territory vasospasm, status post successful verapamil treatment by IR with 20 mg verapamil - 10/17 CT brain - less hemisphere edema with herniation through left craniotomy site, now improved. - Dr. Perry/neurosurgery. Plan to replace bone flap okayed by infectious disease. - hold sedation until neuro exam improves. frequent neuro checks. Respiratory: Acute hypoxic Respiratory failure secondary to mucous plugging Possible healthcare associated pneumonia ARDS- resolved Noncardiogenic/neurogenic pulmonary edema- resolved. Chronic respiratory failure requiring tracheostomy Massive Hemoptysis Aspiration pneumonitis -- PRVC 20/500/0.9//45 - Ventilator bundle -- Albuterol/ipratropium aerosols every 6 hours with albuterol aerosols every [address] angiogram chest/neck revealed right centrilobular bleeding likely source right bronchial artery. Repeat CT chest 11/29/no visualization of active bleeding. -- Follow-up on sputum culture -- s/p Trach Dr. Sullivan/Dr. Collazo 11/01 #8 Beti. --Redo trach 11/[address] Crockett To IR for possible embolization right bronchial artery Cardiovascular: Septic and cardiogenic shock- resolved. LV dysfunction secondary to SAH - persistent, now resolved Elevated troponin- secondary to SAH, unlikely to be ACS. - resolved. Pulmonary hypertension s/p PEA arrest 11/28 after ett dislodgement, hypoxic arrest Continue free water 200mL per tube q6h. Echocardiogram 10/14/16 revealed EF 40-45%. Septal hypokinesis. Moderate MR. Severe pulmonary hypertension with pulmonary artery pressures estimated 61 mmHg Limited Echo 11/06: LVEF 60-65%, Trivial mitral and tricuspid regurgitation, No vegetations noted. Continue diltiazem's 90 mg by mouth every 6 hours and furosemide 20 mg daily currently off vasopressors. Renal: Cerebral Salt Wasting/SIADH-resolved now hypernatremic Strict I/Os. See FEN below. Creatinine currently within normal limits -> resolved. Monitor urine output FEN/GI: Ileus Hypokalemia Elevated transaminases Hyperammonemia - Currently on Glucerna 1.5 goal 60 cc an hour - free water per tube - ICU electrolyte protocol. aggressively replace potassium losses. - Lansoprazole 30 mg by tube daily for GI prophylaxis - Continue bowel regimen - Continue PEG feeding. s/p PEG 11/12/16 Heme/ID: Septic Shock- resolved. Possible HCAP New Fever, leukocytosis, staph epi bacteremia - limited Echo to evaluate vegetation-neg. ID following - Follow-up on sputum culture, trach site culture - Digital Ischemia with necrosis, conservative management - s/p Diltiazem and milrinone infusions - Digits have demarcated, allow auto amputation. Cardizem PO currently and 90 mg every 6 hours (for digital ischemia, Raynaud's) Continue bacitracin twice a day to affected areas Pertinent cultures 10/15 - blood cultures - 1 out of 4 anaerobic gram-negative cocci possibly Veillonella 10/15 - sputum - beta strep not A, strep species 10/19 cultures NG 10/21 1/4 bottles blood cultures coag negative staph. Culture 11/01. coag neg stah bottles 11/16 sputum in trach site cultures negative s/p levofloxacin x 7 days end 11/15/16 Fluconazole discontinued per infectious disease Endocrine: Presumed Adrenal Insufficiency Discontinued fludrocortisone 10/18. Sliding-scale insulin with NovoLog -Accu-Cheks every 4 hours to maintain euglycemia MSK: Stage IV bilateral sacral decubitus ulcers Xeroform/ABD secured with paper tape change daily PT evaluate and treat Prophylaxis: GI Prophylaxis - lansoprazole DVT Prophylaxis-- SCDs, d/c heparin subcutaneous hemoptysis Lines: - 10/14 right SC TLC, removed 10/22 - 10/14 right radial art line, removed 10/14 - 10/15 left radial art line, removed 10/16 - 10/22 left groin triple lumen placed, d/c 10/30 - d/c ramires. Critical care time 30 minutes Cyrus Boland MD Dec 01, 2016 13:50
[2016-12-01] MEDS: MAGNESIUM SULFATE 1 GM PREMIX 100 ML IV SCH ×2 (14:00→16:52)
[2016-12-01] MEDS ORDERED: POTASSIUM CHLORIDE 20 MEQ PWD PACKET PO ONE (14:00)
[2016-12-01 14:10] LABS: HEMATOCRIT 25.4 % (39.0-51.0); MEAN CELL VOLUME 88.5 FL (80.0-100.0); MEAN CORPUSCULAR HEMOGLOBIN 29.8 PG (27.0-34.0); MEAN CORPUSCULAR HGB CONC 33.7 % (32.0-36.0); PLATELET COUNT 250 TH/MM3 (150-450); RED BLOOD COUNT 2.87 MIL/MM3 (4.50-5.90); RED CELL DISTRIBUTION WIDTH 16.6 % (11.6-17.2); REVIEW FLAG FINAL; WHITE BLOOD COUNT 7.4 TH/MM3 (4.0-11.0)
[2016-12-01 14:17] LABS: APTT (PATIENT) 28.3 SEC (24.3-30.1); PROTHROMBIN TIME - PATIENT 11.1 SEC (9.8-11.6)
[2016-12-01] MEDS ORDERED: MIDAZOLAM HCL 2 MG/2 ML VIAL ONE ×2 (14:45→15:53)
[2016-12-01] MEDS ORDERED: ceFAZolin 2 GM PREMIX 50 ML ONE (16:03)
--- NOTE | 2016-12-01 16:22 | PD.RAD ---
Post Procedure Progress Note Pre Procedure Diagnosis: (1) Pulmonary hemorrhage Post Procedure Diagnosis: (1) Pulmonary hemorrhage Procedure Date: Dec 01, 2016 Supervising Radiologist: Santos Crockett JR Proceduralist/Assist: Nik Kebede RT(R), Luisito Ray RT(R) Anesthesia: Conscious Sedation Plan of Activity Patient to Unit: Critical Care Patient Condition: Fair Additional Comments: Right sided pulmonary hemorrhage. Successful right bronchial artery angiogram without active hemorrhage seen. Successful empiric embolization of right bronchial artery. Angioseal closure device utilized. See PACS Report for procedural detail/treatment Jr. Bon,Santos Awan MD Dec 01, 2016 16:22
--- NOTE | 2016-12-01 21:38 | HHI.PR ---
Subjective Remarks ON THE VENTILATOR TRACHEOSTOMY REDONE ALERT NO DISTRESS Objective Vital Signs Date Time Temp Pulse Resp B/P (MAP) Pulse Ox O2 Delivery O2 Flow Rate FiO2 12/01/16 20:40 100 40 12/01/16 18:00 76 12/01/16 17:00 68 12/01/16 16:39 100 40 12/01/16 16:00 40 12/01/16 16:00 98.7 68 20 119/73 (88) 100 12/01/16 14:57 100 100 12/01/16 14:00 73 12/01/16 12:00 77 12/01/16 12:00 98.4 77 20 145/84 (104) 100 12/01/16 12:00 40 12/01/16 11:33 100 40 12/01/16 10:00 74 12/01/16 08:44 100 40 12/01/16 08:00 40 12/01/16 08:00 71 12/01/16 08:00 98.7 71 21 148/82 (104) 100 12/01/16 06:00 78 12/01/16 04:26 98 40 12/01/16 04:00 98.9 80 20 131/74 (93) 99 12/01/16 04:00 80 12/01/16 04:00 40 12/01/16 02:00 74 12/01/16 01:03 100 40 12/01/16 00:00 74 12/01/16 00:00 45 12/01/16 00:00 98.8 74 21 142/73 (96) 99 11/30/16 22:00 78 I/O 11/30/16 11/30/16 11/30/16 12/01/16 12/01/16 12/01/16 07:00 15:00 23:00 07:00 15:00 23:00 Intake Total 1427 ml 1960 ml 1266 ml 1328 ml 752 ml 727 ml Output Total 475 ml 365 ml 275 ml 875 ml Balance 952 ml 1960 ml 901 ml 1053 ml 752 ml -148 ml IV Total 1247 ml 941 ml 1148 ml 752 ml 417 ml Packed Cells 800 ml Blood Product IV Normal Saline Flush 700 ml Tube Irrigant 180 ml 100 ml 180 ml 160 ml Other 460 ml 225 ml 150 ml Output Urine Total 375 ml 365 ml 225 ml 525 ml Stool Total 100 ml 0 ml 50 ml 350 ml Result Diagram: 12/01/16 1348 12/01/16 0453 Objective Remarks GENERAL: SKIN: Warm and dry. HEAD: Atraumatic. Normocephalic. EYES: Pupils equal and round. No scleral icterus. No injection or drainage. ENT: No nasal bleeding or discharge. Mucous membranes pink and moist. NECK: Trachea midline. No JVD. CARDIOVASCULAR: Regular rate and rhythm. RESPIRATORY: No accessory muscle use. Clear to auscultation. Breath sounds equal bilaterally. TRACHEOSTOMY IN PLACE GASTROINTESTINAL: Abdomen soft, non-tender, nondistended. Hepatic and splenic margins not palpable. MUSCULOSKELETAL: Extremities without clubbing, cyanosis, or edema. No obvious deformities. NEUROLOGICAL: Awake and alert. No obvious cranial nerve deficits. Motor grossly within normal limits. Five out of 5 muscle strength in the arms and legs. Normal speech. PSYCHIATRIC: Appropriate mood and affect; insight and judgment normal. Medications and IVs GENERAL: SKIN: Warm and dry. HEAD: Atraumatic. Normocephalic. EYES: Pupils equal and round. No scleral icterus. No injection or drainage. ENT: No nasal bleeding or discharge. Mucous membranes pink and moist. NECK: Trachea midline. No JVD. TRACHEOSTOMY IN PLACE CARDIOVASCULAR: Regular rate and rhythm. RESPIRATORY: No accessory muscle use. Clear to auscultation. Breath sounds equal bilaterally. GASTROINTESTINAL: Abdomen soft, non-tender, nondistended. Hepatic and splenic margins not palpable. MUSCULOSKELETAL: Extremities without clubbing, cyanosis, or edema. No obvious deformities. NEUROLOGICAL: Awake and alert. No obvious cranial nerve deficits. Motor grossly within normal limits. Five out of 5 muscle strength in the arms and legs. Normal speech. PSYCHIATRIC: Appropriate mood and affect; insight and judgment normal. Assessment and Plan Assessment and Plan RESP FAILURE, ON VENT SUPPORT S/P IC BLEED CXRAY BASILAR ATELECTASIS, LESS LIKELY PNA PLAN WEAN TOLERATED ANTIBX PER ID FU CXRAY PULMONARY TOILET Katie Wilson MD Dec 01, 2016 21:38
[2016-12-01] MEDS: MELATONIN 5 MG TAB PO SCH (22:10)
[2016-12-02] VITALS (19 sets, daily range): BP systolic 137–150; BP diastolic 73–78; PULSE 66–76; RESP 20–23; TEMP 98.4–98.6; O2SAT 99–100
[2016-12-02] MEDS: DILTIAZEM HCL 90 MG TAB PO SCH ×4 (01:16→17:43)
[2016-12-02] MEDS: LACTATED RINGER'S 1000 ML INJ 1,000 ML IV SCH (01:17)
[2016-12-02] MEDS: METOCLOPRAMIDE HCL 10 MG/2 ML VIAL IV PUSH SCH ×3 (01:17→17:43)
[2016-12-02] MEDS: RESP: ALBUTEROL 2.5 MG/IPRATROPIUM 0.5 MG NEB (SCH) NEB ×4 (03:34→21:45)
[2016-12-02] MEDS: CHLORHEXIDINE GLUCONATE 2 % 1 PACK (2 CLOTHS) TOP SCH (04:00)
[2016-12-02 05:09] LABS: AUTOMATED NEUTROPHIL # 6.8 TH/MM3 (1.8-7.7); BASOPHIL # 0.1 TH/MM3 (0-0.2); BASOPHIL % 0.7 % (0.0-2.0); HEMATOCRIT 28.1 % (39.0-51.0); HEMO FLAGS DIFF FINAL; LYMPH % 11.4 % (9.0-44.0); LYMPHOCYTE # 0.9 TH/MM3 (1.0-4.8); MEAN CELL VOLUME 88.5 FL (80.0-100.0); MONO % 6.5 % (0.0-8.0); NEUT % 81.4 % (16.0-70.0); PLATELET COUNT 272 TH/MM3 (150-450); RED BLOOD COUNT 3.17 MIL/MM3 (4.50-5.90); RED CELL DISTRIBUTION WIDTH 16.8 % (11.6-17.2); WHITE BLOOD COUNT 8.3 TH/MM3 (4.0-11.0)
[2016-12-02 05:30] LABS: ANION GAP 8 MEQ/L (5-15); AST (GOT) LESS THAN 3 U/L (15-37); BICARBONATE 26.1 MEQ/L (21.0-32.0); BLOOD UREA NITROGEN 13 MG/DL (7-18); CHLORIDE 101 MEQ/L (98-107); GLOMERULAR FILTRATION RATE 338 ML/MIN (>89); MAGNESIUM 1.9 MG/DL (1.5-2.5); POTASSIUM 3.7 MEQ/L (3.5-5.1); SODIUM (NA) 135 MEQ/L (136-145)
[2016-12-02 05:31] LABS: ALT (GPT) 12 U/L (12-78)
[2016-12-02 05:33] LABS: ALKALINE PHOSPHATASE 70 U/L (45-117); TOTAL BILIRUBIN ADULT 0.4 MG/DL (0.2-1.0)
--- NOTE | 2016-12-02 06:27 | RADRPT ---
EXAM DATE/TIME: 12/02/2016 06:10 [place] COMPARISON: CHEST SINGLE AP, December 01, 2016, 6:04. INDICATIONS : Atelectasis. MEDICAL HISTORY : Seizures. SURGICAL HISTORY : None. ENCOUNTER: Subsequent ACUITY: 1 month PAIN SCORE: Non-responsive. LOCATION: Bilateral FINDINGS: A single view of the chest demonstrates the lungs to be hyperinflated. Tracheostomy tube stable. Inte rstitial densities greatest in the left lung. Minimal density right lower lobe slightly improved. Oss eous structures are intact. CONCLUSION: 1. Slightly improving right basilar density. 2. Chronic appearing interstitial densities. Luis Benites MD on December 02, 2016 at 6:24 Board Certified Radiologist. This report was verified electronically.
[2016-12-02] MEDS: CHLORHEXIDINE 0.12% (ORAL KIT) 15 ML CUP MT SCH ×2 (08:00→20:39)
[2016-12-02] MEDS: INSULIN NovoLIN REGULAR SUPPLEMENTAL SCALE SQ SCH ×3 (08:00→18:00)
[2016-12-02] MEDS: ARTIFICIAL TEARS OPTH SOLN 15 ML BTL EACH EYE SCH ×3 (08:08→17:43)
[2016-12-02] MEDS: levETIRAcetam 500 MG/5 ML UDC NG SCH ×2 (08:12→20:39)
[2016-12-02] MEDS: BENEPROTEIN POWDER 1 PACK G-TUBE SCH ×6 (08:12→17:44)
[2016-12-02] MEDS: SODIUM CHLORIDE 0.9% FLUSH 10 ML FLUSH IV FLUSH SCH ×2 (08:12→20:39)
[2016-12-02] MEDS: LACTOBACILLUS ACIDOPHILUS TAB PO SCH ×3 (08:13→17:43)
[2016-12-02] MEDS: FUROSEMIDE 40 MG/5 ML UNIT DOSE CUP NG SCH (08:13)
[2016-12-02] MEDS: LANSOPRAZOLE SOLUTAB 30 MG TAB NG SCH (08:13)
[2016-12-02] MEDS: POTASSIUM CHLOR 20 MEQ PREMIX 100 ML IV PRN (08:13)
--- NOTE | 2016-12-02 08:46 | HHI.IDPN ---
Subjective Subjective Remarks Patient is a 56-year-old male, initially admitted at [facility] after he developed acute onset of left-sided weakness and numbness. In [facility] emergency room his mental status deteriorated, and he required intubation. CT of the head showed subarachnoid bleed. He was transferred to [facility] for neurosurgical evaluation and treatment. Patient underwent angiogram and coiling of his aneurysm. He also underwent emergency surgery and had left frontal temporal parietal decompressive craniectomy, duraplasty, and evacuation of a subdural hematoma. He had a ezio hole and the ventriculostomy placement. His hospitalization was complicated by significant vasospasm of his cerebral arteries, and he had multiple angiogram and treatment of the vasospasm. He also had problem with significant LV dysfunction in both volume overload. His had hyponatremia that has been treated and corrected. He initially started having fevers and some clinical deterioration as far as infection around the first week of October. He had a sputum culture that had pneumococcus, beta- hemolytic strep and Haemophilus. He had one out of 2 blood culture that had anaerobic gram-negative cocci. He was on antibiotics up until October 23. Patient also required significant amount of pressors to maintain an adequate blood pressure to ensure cerebral perfusion. 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 Patient eventually underwent tracheostomy for his continued respiratory requirement, and had this procedure done November 01. Patient currently has been doing quite well and not requiring ventilatory support, and on T piece. Starting November 02 he started having fevers again as well as increased WBC. Repeat cultures at that time grew 2 blood cultures that had coag-negative staph. His central lines have been removed. Patient also has had liquid stool, but C. difficile is negative. Urinalysis done was unremarkable. Patient was started back on antibiotics on November 02 and has been on cefepime and IV vancomycin. He continues to have fevers. His WBC has been down to normal. His last chest x- ray yesterday showing stable infiltrates. He has no central line. He has a Maldonado catheter in place. He has an NG tube and gets tube feedings. Infectious disease consultation has been requested to evaluate the patient for persistent fevers. Notes reviewed D/W RN Had problem with bleeding from trach Underwent angiogram 12/01, no active bleeding, had empiric embolization R bronchial artery Had revision of his trach 10/17 Temps ok BP ok Dark blood from trach Not SOB Antibiotics None Lines PIV Past Medical History Hypertension Past Surgical History Status post trach Status post craniectomy for evacuation of subdural hematoma Allergies: Coded Allergies: No Known Allergies (Unverified , 05/06/16) Objective . Vital Signs Date Time Temp Pulse Resp B/P (MAP) Pulse Ox O2 Delivery O2 Flow Rate FiO2 12/02/16 08:29 99 40 12/02/16 06:00 75 12/02/16 04:10 100 40 12/02/16 04:00 76 12/02/16 04:00 40 12/02/16 04:00 98.6 76 23 139/75 (96) 100 12/02/16 02:00 76 12/02/16 01:10 100 40 12/02/16 00:00 98.5 76 20 141/78 (99) 100 12/02/16 00:00 76 12/02/16 00:00 40 12/01/16 22:00 74 12/01/16 20:40 100 40 12/01/16 20:00 98.7 68 20 138/76 (96) 100 12/01/16 20:00 40 12/01/16 20:00 68 12/01/16 18:00 76 12/01/16 17:00 68 12/01/16 16:39 100 40 12/01/16 16:00 40 12/01/16 16:00 98.7 68 20 119/73 (88) 100 12/01/16 14:57 100 100 12/01/16 14:00 73 12/01/16 12:00 77 12/01/16 12:00 98.4 77 20 145/84 (104) 100 12/01/16 12:00 40 12/01/16 11:33 100 40 12/01/16 10:00 74 12/01/16 08:44 100 40 . Laboratory Tests Test 11/30/16 15:48 12/01/16 04:53 12/01/16 13:48 12/02/16 04:32 Hemoglobin 8.2 GM/DL 8.7 GM/DL 8.5 GM/DL 9.5 GM/DL Hematocrit 23.9 % 25.0 % 25.4 % 28.1 % White Blood Count 8.1 TH/MM3 7.4 TH/MM3 8.3 TH/MM3 Red Blood Count 2.82 MIL/MM3 2.87 MIL/MM3 3.17 MIL/MM3 Mean Corpuscular Volume 88.7 FL 88.5 FL 88.5 FL Mean Corpuscular Hemoglobin 30.7 PG 29.8 PG 30.0 PG Mean Corpuscular Hemoglobin Concent 34.6 % 33.7 % 34.0 % Red Cell Distribution Width 16.6 % 16.6 % 16.8 % Platelet Count 209 TH/MM3 250 TH/MM3 272 TH/MM3 Mean Platelet Volume 8.7 FL 8.4 FL 8.2 FL Neutrophils (%) (Auto) 79.7 % 81.4 % Lymphocytes (%) (Auto) 13.6 % 11.4 % Monocytes (%) (Auto) 6.1 % 6.5 % Eosinophils (%) (Auto) 0.0 % 0.0 % Basophils (%) (Auto) 0.6 % 0.7 % Neutrophils # (Auto) 6.4 TH/MM3 6.8 TH/MM3 Lymphocytes # (Auto) 1.1 TH/MM3 0.9 TH/MM3 Monocytes # (Auto) 0.5 TH/MM3 0.5 TH/MM3 Eosinophils # (Auto) 0.0 TH/MM3 0.0 TH/MM3 Basophils # (Auto) 0.1 TH/MM3 0.1 TH/MM3 CBC Comment DIFF FINAL DIFF FINAL Differential Comment Laboratory Tests Test 11/30/16 15:48 11/30/16 23:44 12/01/16 04:53 12/02/16 04:32 Blood Urea Nitrogen 18 MG/DL 15 MG/DL 13 MG/DL Creatinine 0.29 MG/DL 0.26 MG/DL 0.28 MG/DL Random Glucose 85 MG/DL 99 MG/DL 116 MG/DL Calcium Level 8.0 MG/DL 8.0 MG/DL 7.7 MG/DL Phosphorus Level 3.2 MG/DL 2.8 MG/DL 3.1 MG/DL Magnesium Level 1.8 MG/DL 1.7 MG/DL 1.9 MG/DL Sodium Level 135 MEQ/L 135 MEQ/L 135 MEQ/L Potassium Level 3.5 MEQ/L 3.7 MEQ/L 3.7 MEQ/L 3.7 MEQ/L Chloride Level 101 MEQ/L 100 MEQ/L 101 MEQ/L Carbon Dioxide Level 25.6 MEQ/L 26.9 MEQ/L 26.1 MEQ/L Anion Gap 8 MEQ/L 8 MEQ/L 8 MEQ/L Estimat Glomerular Filtration Rate 325 ML/MIN 369 ML/MIN 338 ML/MIN Total Protein 5.2 GM/DL 5.0 GM/DL Albumin 1.4 GM/DL 1.4 GM/DL Alkaline Phosphatase 93 U/L 70 U/L Aspartate Amino Transf (AST/SGOT) 7 U/L LESS THAN 3 U/L Alanine Aminotransferase (ALT/SGPT) 14 U/L 12 U/L Total Bilirubin 0.4 MG/DL 0.4 MG/DL Imaging Chest X-Ray 11/16/16 Signed Impressions: Service Date/Time: Wednesday, November 16, 2016 05:45 - CONCLUSION: No significant change bilateral airspace opacities. Yosvany Butler MD Chest X-Ray 11/14/16 Signed Impressions: Service Date/Time: Monday, November 14, 2016 12:12 - CONCLUSION: 1. Interval development of patchy bilateral lower lung zone airspace disease and small left pleural effusion. Findings are concerning for aspiration. Kev Vergara MD Chest X-Ray 11/11/16 Signed Impressions: Service Date/Time: Friday, November 11, 2016 20:54 - CONCLUSION: Trace right base atelectasis. Yosvany Butler MD Abdomen X-Ray 10/21/16 0600 Signed Impressions: Service Date/Time: Friday, October 21, 2016 03:50 - CONCLUSION: 1. NGT in the stomach. 2. General paucity of small bowel gas. This finding is nonspecific and occasionally may reflect fluid-filled loops of bowel. Otherwise, no dilated bowel loops to suggest significant ileus or obstruction. Kev Vergara MD Transcranial Doppler Study Complete 10/20/16 0600 Signed Impressions: Service Date/Time: October 07:54 - CONCLUSION: Slight interval elevation of flow velocity measurements and ratio on the left Yosvany Polk MD Liver Ultrasound 10/19/16 Signed Impressions: Service Date/Time: Wednesday, October 19, 2016 11:20 - CONCLUSION: 1. Sludge filled gallbladder with thickened wall. 2. Moderate size bilateral pleural effusions and mild upper abdominal ascites. Santos Vazquez MD Cerebral Arteriogram 9/6/17 0000 Signed Impressions: Service Date/Time: Wednesday, October 19, 2016 12:47 - CONCLUSION: Uncomplicated cerebral arteriography with spasmolytic therapy as described in detail above. Yosvany Polk MD Head CT 10/17/16 0000 Signed Impressions: Service Date/Time: Monday, October 17, 2016 15:06 - CONCLUSION: Ventricles are slightly larger without ventriculostomy. Edema in the left hemisphere the brain herniating through the operative site. Remington Woodward MD FACR Infusion Non-thrombolysis 10/14/16 1103 Signed Impressions: Service Date/Time: Friday, October 14, 2016 10:21 - CONCLUSION: 1. Uncomplicated infusion for spasmolysis Harvey Morejon MD Neck CTA 10/07/16 0000 Signed Impressions: Service Date/Time: Friday, October 07, 2016 15:03 - CONCLUSION: 1. Mild carotid bulb atherosclerotic calcification bilaterally. However, no significant stenosis is present in either internal carotid artery. 2. Paranasal sinus mucoperiosteal thickening. 3. Please refer to brain CTA report for description of the intracranial findings. Yosvany Ramirez MD Head CTA 10/07/16 0000 Signed Impressions: Service Date/Time: Friday, October 07, 2016 15:03 - CONCLUSION: 1. 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 2. Large left subdural hematoma measuring 1.3 cm in depth with a significant, 1.6 cm left to right subfalcine shift. Joni Shelton MD Chest X-Ray 11/05/16 06 Signed Impressions: Service Date/Time: Saturday, November 05, 2016 04:39 - CONCLUSION: Persistent non-consolidative infiltrates in the medial lower lungs. Santos Vazquez MD Abdomen X-Ray 10/21/16 06 Signed Impressions: Service Date/Time: Friday, October 21, 2016 03:50 - CONCLUSION: 1. NGT in the stomach. 2. General paucity of small bowel gas. This finding is nonspecific and occasionally may reflect fluid-filled loops of bowel. Otherwise, no dilated bowel loops to suggest significant ileus or obstruction. Kev Vergara MD Transcranial Doppler Study Complete 10/20/16 06 Signed Impressions: Service Date/Time: October 07:54 - CONCLUSION: Slight interval elevation of flow velocity measurements and ratio on the left Yosvany Polk MD Liver Ultrasound 10/19/16 0000 Signed Impressions: Service Date/Time: Wednesday, October 19, 2016 11:20 - CONCLUSION: 1. Sludge filled gallbladder with thickened wall. 2. Moderate size bilateral pleural effusions and mild upper abdominal ascites. Santos Vazquez MD Cerebral Arteriogram 10/19/16 0000 Signed Impressions: Service Date/Time: Wednesday, October 19, 2016 12:47 - CONCLUSION: Uncomplicated cerebral arteriography with spasmolytic therapy as described in detail above. Yosvany Polk MD Head CT 10/17/16 0000 Signed Impressions: Service Date/Time: Monday, October 17, 2016 15:06 - CONCLUSION: Ventricles are slightly larger without ventriculostomy. Edema in the left hemisphere the brain herniating through the operative site. Remington Woodward MD FACR Infusion Non-thrombolysis 10/14/16 1103 Signed Impressions: Service Date/Time: Friday, October 14, 2016 10:21 - CONCLUSION: 1. Uncomplicated infusion for spasmolysis Harvey Morejon MD Neck CTA 10/07/16 0000 Signed Impressions: Service Date/Time: Friday, October 07, 2016 15:03 - CONCLUSION: 1. Mild carotid bulb atherosclerotic calcification bilaterally. However, no significant stenosis is present in either internal carotid artery. 2. Paranasal sinus mucoperiosteal thickening. 3. Please refer to brain CTA report for description of the intracranial findings. Yosvany Ramirez MD Head CTA 10/07/16 0000 Signed Impressions: Service Date/Time: Friday, October 07, 2016 15:03 - CONCLUSION: 1. 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 2. Large left subdural hematoma measuring 1.3 cm in depth with a significant, 1.6 cm left to right subfalcine shift. Joni Shelton MD Physical Exam GENERAL: Awake and following, on the vent, NAD SKIN: Warm and dry. Has stable papular rash in BUE and BLE and lower trunk, lateral trunk HEAD: Incision healing with several areas that have eschar, no drainage, no redness, has dry dressing in place EYES: [place] conjunctiva. No petechia or hemorrhage. No scleral icterus. No injection or drainage. EARS, NOSE AND THROAT: Nose without bleeding or purulent nasal discharge. Slightly dry oral mucosa NECK: Has dry dressing over previous trach site CARDIOVASCULAR: Regular rate and rhythm. No murmurs, rubs or gallops heard RESPIRATORY: Coarse BS shereen ABDOMEN: Soft, non-tender, nondistended. Bowel sounds present and normoactive. No guarding. No rebound. No organomegaly. EXTREMITIES: No clubbing, has pedal edema. Has stable dry gangrene LIF and R ring finger. All his toes have stable dry gangrene. No calf tenderness. NEUROLOGICAL: Awake and following commands, moves all extremities PSYCHIATRIC: Calm and cooperative LINE: PIV with no evidence of infection Assessment & Plan Remarks IMPRESSION Fevers since 11/02, resolved 2 BC with 2 different Coag Neg Staph, ?real, no lines now - last line removed 10/30 - contaminant S/P coiling aneurysm S/P craniectomy, decompression, evacuation of SDH Respiratory failure, S/P trach, on T-piece Rash likely drug eruption, ?Abx - B-lactam, ?Dilantin LV dysfunction Recurrent fevers, resolved Vomiting, better Bleeding trach, has infiltrates on his CT chest, ?from blood - no fever, he finished course of Abx for PNA last week RECOMMENDATION Clinically doing well from ID standpoint He is not on any Abx at this time Monitor for S/Sxs of new infection (fever, purulent secretions, leukocytosis) Weaning per CCM as tolerated I will be available prn Please call if with new ID issue or question D/W Mitra Sears MD Dec 02, 2016 08:46
[2016-12-02] MEDS ORDERED: IODIXANOL 320 MG/ML 50 ML VIAL (for RAD SPEC) I-ARTERIAL ONE (08:47)
[2016-12-02] MEDS: COLLAGENASE OINT 30 GM TUBE TOPICAL SCH (09:00)
[2016-12-02] MEDS: BACITRACIN TOP OINT 15 GM TUBE TOPICAL SCH ×2 (09:00→21:00)
[2016-12-02] MEDS: POVIDONE IODINE 10% OINT 30 GM TUBE TOPICAL SCH (09:00)
--- NOTE | 2016-12-02 09:53 | HHI.CCPN ---
Subjective Remarks/Hospital Course 10/07: 56-year-old male presents with intracranial bleed. Patient was transferred from [facility] at [facility]. As per the paramedics and the nurse who assisted the patient said that patient earlier this morning was coming down the stairs when he started feeling some left-sided weakness and numbness. He called 911 and by the time EMS arrived they detected some deficit and called a stroke alert. Patient was taken to [facility]. When patient arrived his mental status started to decline and he was intubated emergently in the ER. A CAT scan of the head showed subarachnoid and subdural bleed. He was taking emergently to an angio suite for coiling of the aneurysm and later on to OR for subdural hematoma evacuation. 10/08: Remains sedated, orally intubated on mechanical ventilation. Arouses off sedation and following commands with both upper extremities earlier. Ventriculostomy in place. ICP 7, CPP mid 80s. 10/09: Remains sedated, orally intubated on mechanical ventilation. Arouses off sedation and follows commands with both upper extremities. Ventriculostomy in place. 10/10: Remains sedated, orally intubated on mechanical ventilation. Arouses off sedation and follows commands and both upper extremities. Ventriculostomy in place. ICP 5. Failed C Pap trial yesterday. 10/11: Extubated on 10/10, tolerating well. Awake and alert. Appears confused, moving all 4 extremities. Ventriculostomy discontinued today by neurosurgery 10/13: Patient has developed severe vasospasm at the left MCA territory on TCD's that was treated with IV route verapamil 10/14: patient extubated overnight. was originally following commands and neuro intact. TCDs this morning with increase LIs over yesterday, particularly Left MCA territory. On my evaluation early this morning, patient was aphasic, not moving the right side of his body, not following commands. SBP 140s at that time. net 2L negative/24h and uop almost 1L/hr at the time. I immediately bolused with 2L NS iv, placed arterial and central lines, started phenylephrine , increased SBP to goal 200 - 220 mmHg. called interventional neuroradiology and accompanied patient down personally to IR for IA verapamil again. I remained with the patient managing his hemodynamics down in IR and providing anxiolysis IV. I accompanied patient back up to [facility] where patient again was neuro intact and following commands. Sodium downtrending to 135 and urine studies and serum osms suggestive of urine sodium losses and high uop. added Florinef to mitigate sodium losses, and increased mivf to 500cc/hr to maintain euvolemia. later in the day patient decompensated requiring intubation for hyoxemia, cxr suggestive of pulmonary edema. 2d echo with evidence of EF 40%, septal hypokinesis, moderate MR. On levo, vaso, phenylephrine. difficult to get to goal SBP 200 mmHg, likely due to myocardial dysfunction. decreased goal to 180 - 200 mmHg to balance cardiac vs. neurologic goals. 10/15 Patient was discussed with Dr. Sullivan at shift change. Isuprel was initiated in effort to improve cardiac output as dobutamine not available and concerned with use of milrinone given long half life. Systolic blood pressure was relatively stable with perhaps some modest improvement from 170s to 180s for several hours after initiation. Notified when patient became abruptly hypotensive despite vasopressin, levophed 20 mcg/min, Greyson-Synephrine 300 mcg/m. He was also hypoxemic with sats in 80s despite PCV with PEEP 8 and FiO2 100%, respiratory rate in the 30s. He had decreased breath sounds bilaterally and was concerned for air trapping so removed from mechanical ventilation and bagged without improvement. Placed patient back on mechanical ventilation and provide recruitment maneuvers and increased PEEP to 12 which resulted in improvement of sats to 88% to 92%. Ordered Flolan. Discontinued isuprel and initiated epinephrine. R radial art line would not draw blood . Performed u/s guided femoral artery stick to confirm hypoxemia on ABG given poor wave form on pulse ox and PaO2 was 58. Placed new L radial art line and this resulted in ~ 30 point increase in SBP relative to prior line but patient ultimately on vasopressin, levophed 30 micrograms per minute, Greyson-Synephrine 300 micrograms per minute, epinephrine 12 mcg/min and unable to maintain target pressure (SBP in 150s). Given calcium chloride. patient with shaking movements all extremities, pupils 2mm and sluggish, no eye deviation. Rigors seemed most likely but unable to emergently rule out seizures so loaded with fosphenytoin to avoid secondary injury from seizure activity. WBC increasing and concern for HCAP so pancultured and placed on cefepime, vancomycin, azithromycin. Hydrocortisone 100 mg IV every 8 hours initiated due to concern for septic shock in a patient who has been refractory to all other above measures. Patient is to hemodynamically unstable and hypoxic for transport for neurologic imaging. Urine output has declined to 180-200 ML's per hour. Back off maintenance IV fluids to 200 ML's per hour. Bedside echo demonstrates decreased LV function with normal RV contractility and collapsible IVC suggesting ongoing maintenance fluid administration is appropriate. 10/15 additional visit: continued to deteriorate throughout the day. Seen multiple times. hypoxic on 100% fio2, flolan. required nimbex drip to maintain. repeat bedside critical care ultrasound still demonstrates severe LV dysfunction , decompressed RV, IVC more dilated than previous echo overnight, however still with respiratory variation. femoral arterial line placed with better waveform and higher pressure (likely SVR too high to allow accurate measurement of radial pressure). Pulse contour analysis without stroke volume variation, CI 3.6. SV 52mL. trialed additional albumin without improvement in hemodynamics. uop slower than before, but still significant salt wasting in the urine- sodium dropped to 125 from 132 despite already on 3% nacl infusion and aggressive sodium replacements. forced to give 23% nacl and salt tabs. declining clinically despite maximal therapy. 10/16: continues to be maximally critically ill. LV dysfunction persists. starting to get volume overloaded, but given concern for ongoing cerebral vasospasm, unable to actively diurese patient. sodium wasting persists, but uop downtrending slightly. very hypokalemic today, likely due to steroids. remains intubated, sedated, paralyzed, on flolan. CXR today appears worse with worsening airspace disease. Lactate remains slightly elevated, confirming persistent shock. 10/17: Lung infiltrates dense bilaterally, reflected in shunting and problems with oxygenation. Developed vasospasm on TCDs and required angiogram and intra- arterial verapamil again today. 10/18: SBP 160 - 170 range. FiO2 0.55. BNP > 5000. Not tolerating attempts at maintaining higher BP due to worsening heart failure. Several episodes of vasospasm. Watch daily TCDs closely. Sputum no growth. 10/19: Tmax 99.8. Currently 99. Remains on 4 vasopressors and epoprostenol 10/20: Yesterday. Returned IR for intra-arterial calcium channel jose infusion for vasospasm. Transcranial Dopplers today Still pending. Remains on significant vasopressor support. 10/21: Good response to diuresis, check BNP. TCDs pending. Heart failure remains a major problem. 10/22: CVP 21 - 22, finger tips blue, digits pale white despite high dose milrinone dilation. Greyson and vaso much reduced. Will try diltiazem gtt for digital ischemia. Urine remains > 200/hr and proximal limbs are well perfused. This digital ischemia appears to be a local phenomenon ala Raynaud's. New subcutaneous emphysema right anterior chest wall. 10/23: Old CVL removed. Fingertips remain marginal, some necrotic despite diltiazem and milrinone treatment for digital ischemia. Cardiac output > 7 liters/min and urine copious, confirming good perfusion pressure and flow. This continues to be a local phenomenon of the digits ala Raynaud's. We are trying to wean vasopressors off but are required to maintaining a cerebral perfusion pressure suitable for the treatment of aneurysmal subarachnoid bleed. Frankly, the importance of brain function eclipses fingertips. 10/24: Afebrile. Well perfused except for index finger left hand, few tips fingers right. Arms and hands warmer with resolving circumferential edema. Diltiazem and milrinone gtt continue. Greyson to 10 mics/min. 10/25: Digits are warm and well perfused except left index and right 4th fingertips; demarcated and not viable. Dry. Diltiazem and milrinone infusions continue to help reverse digital ischemia. 10/26: Forced diuresis continues and BP remains nicely elevated. Hands and digits warm aside from left index and right 4th fingertips which have demarcated. 10/27: Good response to diuretics. Perfusion pressure and documented flow excellent. Continue to wean vent. 10/28: Start SBTs. Fluid balance back toward normal. 10/29: Tolerating SBTs. Lowering sedation. Edema resolving. 10/30: Tolerating tube feeds, will taper off TPN and remove central line. Continue diuretics. 10/31: net -3L over 24h. mental status at baseline. tolerating CPAP, but does not have the mental status to protect airway. will likely need trach/peg. placement will be a problem due to lack of funding. 11/01: no changes or improvements. discussed with yesterday and she "does not want any more setbacks" and would prefer trach versus trial of extubation. I agree with her assessment. plan for trach today. placement is still a significant problem. net -2L/24h. 11/02: wbc uptrending, febrile. antonio cultured, started empiric abx today. failed SBT overnight and placed back on rate. 11/03: Tolerating CPAP today, following commands. Low-grade fever cultures pending. WBC count normal today 11/04: Remains on TPs since yesterday. Neuro exam remains stable. Follows commands weakly. Na 152 11/05: Remains off vent for 48 hours now. Sitting up in stretcher chair today. Na improved to 149. remains weak but improving 11/06: Continues to tolerate TPs well. Neuro exam unchanged. Sodium 148 today. Continues to spike intermittent fever Tmax 102.7. 11/07: Continued fevers, no leukocytosis. 11/08: Stable for replacement of bone flap. 11/09: Getting a bit excessively diuresed, will decrease lasix and convert to PO. Fingertips and toes demarcating as expected. No immediate action required except for continued diltiazem therapy. Clearly a Raynaud's type digital ischemia as peripheral perfusion and urine output indicated excellent peripheral perfusion. 11/10: Tracks with eyes today, nods to questions. Failed swallow again. 11/11: Plan for PEG, GI consulted. Bone flap replacement on hold due to blood cultures and fever. 11/12: May get PEG today, Bone flap to be replaced coming week per Dr. Perry. Afebrile no white count 11/13: Neuro exam unchanged. Na was 150 yesterday, repeat CMP pending. Left flap remains sunken 11/14: emesis overnight with ? aspiration event. no increased O2 requirement, but fever to 102.5 today. recultured. no complaints from patient. 11/15: No changes. still low suspicion for infection. Awaiting ID clearance for bone flap replacement. also awaiting placement 11/16: Placed on full ventilator support overnight for acute hypoxemic respiratory failure due to mucous plugging. Mucomyst added. Not on any sedation. Chest x-ray back to baseline-no need a bronchoscopy at this time, but will do if there is recurrent plugging. Will check sputum culture, and trach site culture 11/17: Breathing comfortably on the vent, on CPAP now. Off all sedation. We'll attempt T piece yesterday. Sodium normal 11/18: Currently tolerating TP. Patient had a few episodes of nausea vomiting. KUB shows ileus. Overnight was started on Reglan IV and when necessary Zofran. We'll keep nothing by mouth until ileus resolved. 11/19: Back on vent rate due to poor spontaneous effort. Hgb down 2 gms - looks like dilution; follow closely. VS without change. Ileus has resolved. 11/20: ABIs normal with normal pressure. Inflow satisfactory to all limbs. GI tract working well. 11/21: Tmax 99.1. Positive BM from fecal containing device. Tolerating t piece 24 hours. Tube feeds are at goal. Okay for OR from ID standpoint 11/22 currently resting in bed in no acute distress. On TP since 48 hours. Tube feeds at goal. 11/23: Resting in bed on T piece and 72 hours. Tube feeding at goals. Cleared from ID for plastics. 11/26: rapid response for massive hemoptysis. Patient rapidly reintubated through mouth and trach tube removed at same time. No bleeding from the trach stoma or above. All blood is coming from below. Bronchoscopy demonstrated large clots in both left and right mainstems. Right side clot 2 x 2 x 3 cm. Finally suctioned clear enough to inspect - no bleeding source found. Will keep on vent with PEEP 12 and heavy sedation. Plts 380,000, INR 1.0 11/27: CTA reviewed. He appears to bee bleeding from the anterior segment of the right upper lobe, which is displaced inferiorly by apical bullous disease. 11/28: remains sedated and paralyzed. still requiring active transfusions. but no longer hypoxic and bloody secretions are much less. 11/29: overnight ett became dislodged leading to hypoxia, bradycardia, PEA arrest. ~10min CPR with ROSC and reintubation. this morning, off sedation, opens eyes spontaneously but no other movements. repeat CTA chest without evidence of extravasation from area of massive hemoptysis. 11/30: Resting in bed in no acute distress. Arousable and follows commands. Tolerating tube feed. Afebrile. 12/01: Afebrile. Since 6 AM, every hour with copious amounts of bright red blood per tracheostomy/TPs. IR for possible right bronchial artery embolization today. Noted likely culprit on CTA 11/26. Hasn't had active bleeding since then. Subjective 12/02: Afebrile. Status post embolization 2 right bronchial artery yesterday. Currently old blood from tracheostomy site. Saturations 100% on 40% FiO2. Tolerating tube feeding. Objective Vital Signs Date Time Temp Pulse Resp B/P (MAP) Pulse Ox O2 Delivery O2 Flow Rate FiO2 12/02/16 08:29 99 40 12/02/16 06:00 75 12/02/16 04:00 98.6 23 139/75 (96) Intake and Output 12/02/16 12/02/16 12/03/16 08:00 16:00 00:00 Intake Total 1154 ml Output Total 400 ml Balance 754 ml Result Diagram: 12/02/16 0432 12/02/16 0432 Other Results Microbiology Date/Time Source Procedure Growth Status 11/15/16 05:20 Blood Peripheral Aerobic Blood Culture - Final NO GROWTH IN 5 DAYS Complete 11/15/16 05:20 Blood Peripheral Anaerobic Blood Culture - Final NO GROWTH IN 5 DAYS Complete 11/16/16 06:00 Sputum Endotracheal Gram Stain - Final Complete 11/16/16 06:00 Sputum Endotracheal Sputum Culture - Final HEAVY GROWTH NORMAL RESPIRATORY YAON Complete 11/06/16 13:00 Urine Random Urine Urine Culture - Final <10,000 CFU/ML GRAM POSITIVE YOAN Complete 11/16/16 11:13 Wound Neck Gram Stain - Final Complete 11/16/16 11:13 Wound Neck Wound Culture - Final HEAVY GROWTH NORMAL SKIN YOAN... Complete Imaging Last Impressions Chest X-Ray 12/02/16 0000 Signed Impressions: Service Date/Time: Friday, December 02, 2016 06:10 - CONCLUSION: 1. Slightly improving right basilar density. 2. Chronic appearing interstitial densities. Luis Benites MD Chest CT 11/28/16 0000 Signed Impressions: Service Date/Time: Tuesday, November 29, 2016 05:13 - CONCLUSION: 1. Patchy alveolar disease characteristic of edema or pneumonia. 2. Severe emphysema 3. Gastrojejunostomy tube looped in the stomach Harvey Morejon MD Chest/Thorax CTA 11/26/16 0000 Signed Impressions: Service Date/Time: Saturday, November 26, 2016 20:18 - CONCLUSION: 1. Extensive filling defects within the right central bronchial tree characteristic of endobronchial hemorrhage. 2. Consolidating airspace disease in the right upper lobe and right lower lobe characteristic of hemorrhage and post obstructive lung consolidation. 3. Right bronchial artery is identified extending to the central right bronchial region 4. Advanced COPD. Nasir Amanda MD Abdomen X-Ray 11/19/16 0600 Signed Impressions: Service Date/Time: Saturday, November 19, 2016 02:44 - CONCLUSION: Unchanged bowel gas pattern potentially relating to an ileus. Santos Crockett Jr., MD Transcranial Doppler Study Complete 10/20/16 0600 Signed Impressions: Service Date/Time: October 07:54 - CONCLUSION: Slight interval elevation of flow velocity measurements and ratio on the left Yosvany Polk MD Liver Ultrasound 10/19/16 0000 Signed Impressions: Service Date/Time: Wednesday, October 19, 2016 11:20 - CONCLUSION: 1. Sludge filled gallbladder with thickened wall. 2. Moderate size bilateral pleural effusions and mild upper abdominal ascites. Santos Vazquez MD Cerebral Arteriogram 10/19/16 0000 Signed Impressions: Service Date/Time: Wednesday, October 19, 2016 12:47 - CONCLUSION: Uncomplicated cerebral arteriography with spasmolytic therapy as described in detail above. Yosvany Polk MD Head CT 10/17/16 0000 Signed Impressions: Service Date/Time: Monday, October 17, 2016 15:06 - CONCLUSION: Ventricles are slightly larger without ventriculostomy. Edema in the left hemisphere the brain herniating through the operative site. Remington Woodward MD FACR Infusion Non-thrombolysis 10/14/16 1103 Signed Impressions: Service Date/Time: Friday, October 14, 2016 10:21 - CONCLUSION: 1. Uncomplicated infusion for spasmolysis Harvey Morejon MD Neck CTA 10/07/16 0000 Signed Impressions: Service Date/Time: Friday, October 07, 2016 15:03 - CONCLUSION: 1. Mild carotid bulb atherosclerotic calcification bilaterally. However, no significant stenosis is present in either internal carotid artery. 2. Paranasal sinus mucoperiosteal thickening. 3. Please refer to brain CTA report for description of the intracranial findings. Yosvany Ramirez MD Head CTA 10/07/16 0000 Signed Impressions: Service Date/Time: Friday, October 07, 2016 15:03 - CONCLUSION: 1. 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 2. Large left subdural hematoma measuring 1.3 cm in depth with a significant, 1.6 cm left to right subfalcine shift. Joni Shelton MD Objective Remarks GENERAL: 56-year-old male. Currently on ventilator via tracheostomy HEAD: Status post left craniectomy. Left flap sunken, Incision healing well EYES: 3 mm bilaterally and reactive NECK: trach site is clean dry and intact. Copious amount of bright red blood per ventilator device CARDIOVASCULAR: RRR. S1, S2 no S4. Without murmur RESPIRATORY: TP. Diffuse rhonchi and mobile secretions. bloody secretions are improving. GASTROINTESTINAL: Abdomen soft, non-tender, nondistended. No guarding. MUSCULOSKELETAL: Ischemic changes worst to left index finger tip, right 4th fingertip, and majority of R toes. Demarcating, dry. NEURO EXAM: Cranial nerves II through XII grossly intact.Right UE weaker than left, follows commands x4. SKIN: Stage IV decubitus ulcer 4 x 2 bilateral sacral. Procedures 10/13 Four-vessel cerebral angiography with verapamil treatment of vasospasm A/P Assessment and Plan Neuro/Psych Status post left frontotemporal parietal craniectomy 10/08 for evacuation subdural hematoma/duraplasty Left subdural hematoma - 1.3 cm with 1.6 shift left to right Subarachnoid hemorrhage Alvarado and Rodriguez 5, Carroll grade 4 - left P-comm status post 4 coiling 10/08 Hypoxic-Ischemic Encephalopathy - Nimodipine completed 21 days. Initiated 10/13. - Levetiracetam 500 mg per tube q12h. - 10/13 and 10/14 and 10/17) 10/19 left MCA territory vasospasm, status post successful verapamil treatment by IR with 20 mg verapamil - 10/17 CT brain - less hemisphere edema with herniation through left craniotomy site, now improved. - Dr. Perry/neurosurgery. Plan to replace bone flap okayed by infectious disease. - hold sedation until neuro exam improves. frequent neuro checks. Respiratory: Acute hypoxic Respiratory failure secondary to mucous plugging Possible healthcare associated pneumonia ARDS- resolved Noncardiogenic/neurogenic pulmonary edema- resolved. Chronic respiratory failure requiring tracheostomy Massive Hemoptysis Aspiration pneumonitis -- PRVC 20/500/0.9/10/40 - Ventilator bundle -- Albuterol/ipratropium aerosols every 6 hours with albuterol aerosols every [address] angiogram chest/neck revealed right centrilobular bleeding likely source right bronchial artery. Repeat CT chest 11/29/no visualization of active bleeding. -- Follow-up on sputum culture -- s/p Trach Dr. Sullivan/Dr. Collazo 11/01 #8 Beti. --Redo trach 11/[address] Crockett 12/01 - embolization of right bronchial artery by IR Cardiovascular: Septic and cardiogenic shock- resolved. LV dysfunction secondary to SAH - persistent, now resolved Elevated troponin- secondary to SAH, unlikely to be ACS. - resolved. Pulmonary hypertension s/p PEA arrest 11/28 after ett dislodgement, hypoxic arrest Continue free water 200mL per tube q6h. Echocardiogram 10/14/16 revealed EF 40-45%. Septal hypokinesis. Moderate MR. Severe pulmonary hypertension with pulmonary artery pressures estimated 61 mmHg Limited Echo 11/06: LVEF 60-65%, Trivial mitral and tricuspid regurgitation, No vegetations noted. Continue diltiazem's 90 mg by mouth every 6 hours and furosemide 20 mg daily currently off vasopressors. Renal: Cerebral Salt Wasting/SIADH-resolved now hypernatremic Strict I/Os. See FEN below. Creatinine currently within normal limits -> resolved. Monitor urine output FEN/GI: Ileus Hypokalemia Elevated transaminases Hyperammonemia - Currently on Glucerna 1.5 goal 60 cc an hour. Currently at 30 cc now. Testicle today - free water per tube - ICU electrolyte protocol. aggressively replace potassium losses. - Lansoprazole 30 mg by tube daily for GI prophylaxis - Continue bowel regimen - Continue PEG feeding. s/p PEG 11/12/16 Heme/ID: Septic Shock- resolved. Possible HCAP New Fever, leukocytosis, staph epi bacteremia - limited Echo to evaluate vegetation-neg. ID following - Follow-up on sputum culture, trach site culture - Digital Ischemia with necrosis, conservative management - s/p Diltiazem and milrinone infusions - Digits have demarcated, allow auto amputation. Cardizem PO currently and 90 mg every 6 hours (for digital ischemia, Raynaud's) Continue bacitracin twice a day to affected areas Pertinent cultures 10/15 - blood cultures - 1 out of 4 anaerobic gram-negative cocci possibly Veillonella 10/15 - sputum - beta strep not A, strep species 10/19 cultures NG 10/21 1/4 bottles blood cultures coag negative staph. Culture 11/01. coag neg stah 03/19 bottles 11/16 sputum in trach site cultures negative s/p levofloxacin x 7 days end 11/15/16 Fluconazole discontinued per infectious disease Endocrine: Presumed Adrenal Insufficiency Discontinued fludrocortisone 10/18. Sliding-scale insulin with NovoLog -Accu-Cheks every 4 hours to maintain euglycemia MSK: Stage IV bilateral sacral decubitus ulcers Xeroform/ABD secured with paper tape change daily PT evaluate and treat Prophylaxis: GI Prophylaxis - lansoprazole DVT Prophylaxis-- SCDs, d/c heparin subcutaneous hemoptysis Lines: - 10/14 right SC TLC, removed 10/22 - 10/14 right radial art line, removed 10/14 - 10/15 left radial art line, removed 10/16 - 10/22 left groin triple lumen placed, d/c 10/30 - d/c ramires. Critical care time 30 minutes Cyrus Boland MD Dec 02, 2016 09:53
[2016-12-02] MEDS ORDERED: POTASSIUM CHLORIDE 20 MEQ PWD PACKET PO ONE (10:00)
[2016-12-02] MEDS ORDERED: MAGNESIUM SULFATE 1 GM PREMIX 100 ML IV ONE (10:00)
--- NOTE | 2016-12-02 10:49 | RADRPT ---
EXAM DATE/TIME: 12/01/2016 14:02 [place] COMPARISON: CTA CHEST W 3D RECON, November 26, 2016, 20:18. INDICATIONS : Patient presents with endobronchial hemorrhage in need of angiogram with possible embolization. Endos copy suggests right lung as source. MEDICAL HISTORY : Acute on chronic respiratory failure Hemoptysis HTN seizures Hx intracranial bleed SURGICAL HISTORY : Percutaneous Dilation Tracheostomy Tube Placement Diagnosis: Acute on chronic respiratory failure Indications: Acute on chronic respiratory failure. This patient has a history of tracheostomy dependence who rece ntly presented back to the ICU with massive hemoptysis, was intubated through the mouth further viry p and management of his hemoptysis, and now requires repeat tracheostomy for chronic respiratory fail ure ENCOUNTER: Subsequent ACUITY: 1 month PAIN SCORE: Nonresponsive. LOCATION: n/a FLUORO TIME: 22.1 minutes IMAGE SERIES: 12 ACCESS SITE: Right Femoral artery SEDATION TIME: 75 minutes CONTRAST: 1.) 65 cc Visipaque (iodixanol) MEDICATION(S): 1.) 7 mg midazolam (Versed) IV 2.) 350 mcg fentanyl (Sublimaze) IV 3.) 2 g cefazolin (Ancef) IV DEVICE(S): 1.) Right artery Bronchial Gelfoam 12-7mm PROCEDURE : 1. Ultrasound-guided puncture of the access site. 2. Angiography of the access site prior to closure device. 3. Conscious sedation with continuous EKG and Oximetry monitoring. 4. Percutaneous closure of the access site. 5. Angiography of the right bronchial artery 6. Embolization of the right bronchial artery The risks, benefits and alternatives to the procedure were explained and verbal and written consent w as obtained. The site was prepped in sterile fashion. Full sterile technique was used, including ca p, mask, sterile gloves and gown and a large sterile sheet. Hand hygiene and 2% chlorhexidine and/or betadine/alcohol prep was utilized per protocol for cutaneous antisepsis. Sterile gel and sterile p robe cover were utilized for ultrasound guidance. The skin and subcutaneous tissues were infiltrated with local anesthetic solution. With ultrasound and fluoroscopic guidance right common femoral artery was punctured and a vascular sh eath was placed. Angiography of the common femoral artery was performed for evaluation prior to perc utaneous closure device placement. A non-selected aortogram was performed to try and identify the origin of the right bronchial artery. This was identified with this angiogram. The right bronchial artery was selected utilizing a Destino sheath and glide Berenstein catheter. No active hemorrhage is observed. Empiric embolization was felt most prudent. This was performed utilizing Gelfoam slurry. Hemostasis was obtained with the prescribed medicated closure device. Conscious sedation was perform ed with the prescribed dosages and duration as above in the presence of an independent trained radiol ogy nurse to assist in the monitoring of the patient. EKG and oximetry remained stable throughout th e procedure. CONCLUSION: 1. Right side up on her hemorrhage with angiography of the right bronchial artery revealing no source of active hemorrhage. Empiric embolization was performed. Santos Crockett Jr., MD on December 02, 2016 at 10:31 Board Certified Radiologist. This report was verified electronically.
--- NOTE | 2016-12-02 14:13 | HHI.PR ---
Subjective Remarks ON THE VENTILATOR TRACHEOSTOMY REDONE ALERT NO DISTRESS small amount of heam in tubing Objective Vital Signs Date Time Temp Pulse Resp B/P (MAP) Pulse Ox O2 Delivery O2 Flow Rate FiO2 12/02/16 12:00 40 12/02/16 12:00 98.5 70 20 150/77 (101) 100 12/02/16 12:00 70 12/02/16 11:31 100 40 12/02/16 10:00 76 12/02/16 08:29 99 40 12/02/16 08:00 98.4 72 20 138/73 (94) 100 12/02/16 08:00 40 12/02/16 08:00 72 12/02/16 06:00 75 12/02/16 04:10 100 40 12/02/16 04:00 76 12/02/16 04:00 40 12/02/16 04:00 98.6 76 23 139/75 (96) 100 12/02/16 02:00 76 12/02/16 01:10 100 40 12/02/16 00:00 98.5 76 20 141/78 (99) 100 12/02/16 00:00 76 12/02/16 00:00 40 12/01/16 22:00 74 12/01/16 20:40 100 40 12/01/16 20:00 98.7 68 20 138/76 (96) 100 12/01/16 20:00 40 12/01/16 20:00 68 12/01/16 18:00 76 12/01/16 17:00 68 12/01/16 16:39 100 40 12/01/16 16:00 40 12/01/16 16:00 98.7 68 20 119/73 (88) 100 12/01/16 14:57 100 100 I/O 12/01/16 12/01/16 12/01/16 12/02/16 12/02/16 12/02/16 07:00 15:00 23:00 07:00 15:00 23:00 Intake Total 1328 ml 752 ml 727 ml 1154 ml Output Total 275 ml 875 ml 400 ml Balance 1053 ml 752 ml -148 ml 754 ml IV Total 1148 ml 752 ml 417 ml 974 ml Tube Irrigant 180 ml 160 ml 180 ml Other 150 ml Output Urine Total 225 ml 525 ml 400 ml Stool Total 50 ml 350 ml 0 ml Result Diagram: 12/02/1643112/02/16431 Objective Remarks GENERAL: SKIN: Warm and dry. HEAD: Atraumatic. Normocephalic. EYES: Pupils equal and round. No scleral icterus. No injection or drainage. ENT: No nasal bleeding or discharge. Mucous membranes pink and moist. NECK: Trachea midline. No JVD. CARDIOVASCULAR: Regular rate and rhythm. RESPIRATORY: No accessory muscle use. Clear to auscultation. Breath sounds equal bilaterally. TRACHEOSTOMY IN PLACE GASTROINTESTINAL: Abdomen soft, non-tender, nondistended. Hepatic and splenic margins not palpable. MUSCULOSKELETAL: Extremities without clubbing, cyanosis, or edema. No obvious deformities. NEUROLOGICAL: Awake and alert. No obvious cranial nerve deficits. Motor grossly within normal limits. Five out of 5 muscle strength in the arms and legs. Normal speech. PSYCHIATRIC: Appropriate mood and affect; insight and judgment normal. Assessment and Plan Assessment and Plan RESP FAILURE, ON VENT SUPPORT S/P IC BLEED CXRAY BASILAR ATELECTASIS, LESS LIKELY PNA PLAN WEAN TOLERATED ANTIBX PER ID FU CXRAY PULMONARY TOILET Katie Wilson MD Dec 02, 2016 14:13
--- NOTE | 2016-12-02 14:41 | HHI.PR ---
Subjective Subjective Comments Resting comfortably in bed. Appears to deny any pain complaints. No shortness of breath noted. Trach in place. Allergies: Coded Allergies: No Known Allergies (Unverified , 05/06/16) Review of Systems All other ROS: ROS reviewed as documented in chart Exam I&O / VS 12/02/16 12/02/16 12/03/16 15:00 23:00 07:00 Intake Total 304 ml Balance 304 ml IV Total 304 ml Vital Signs Date Time Temp Pulse Resp B/P (MAP) Pulse Ox O2 Delivery O2 Flow Rate FiO2 12/02/16 14:00 70 12/02/16 12:00 40 12/02/16 12:00 98.5 70 20 150/77 (101) 100 12/02/16 12:00 70 12/02/16 11:31 100 40 12/02/16 10:00 76 12/02/16 08:29 99 40 12/02/16 08:00 98.4 72 20 138/73 (94) 100 12/02/16 08:00 40 12/02/16 08:00 72 12/02/16 06:00 75 12/02/16 04:10 100 40 12/02/16 04:00 76 12/02/16 04:00 40 12/02/16 04:00 98.6 76 23 139/75 (96) 100 12/02/16 02:00 76 12/02/16 01:10 100 40 12/02/16 00:00 98.5 76 20 141/78 (99) 100 12/02/16 00:00 76 12/02/16 00:00 40 12/01/16 22:00 74 12/01/16 20:40 100 40 12/01/16 20:00 98.7 68 20 138/76 (96) 100 12/01/16 20:00 40 12/01/16 20:00 68 12/01/16 18:00 76 12/01/16 17:00 68 12/01/16 16:39 100 40 12/01/16 16:00 40 12/01/16 16:00 98.7 68 20 119/73 (88) 100 12/01/16 14:57 100 100 General: No acute distress, Other (Tracheostomy with T-piece; left craniotomy defect) Cardiovascular: Normal rate Musculoskeletal: ROM (within functional limits), Other (SCD's in place) Psychiatric: Cooperative Orientation: oriented to Self, oriented to Place, oriented to Situation Neurologic: Pupils (PERRLA), EOM (Intact), Speech (Attempting to verbalize), Other (Follow commands to move all extremities) Clonus: Negative Objective Micro and Labs Laboratory Tests Test 12/02/16 04:32 White Blood Count 8.3 Red Blood Count 3.17 Hemoglobin 9.5 Hematocrit 28.1 Mean Corpuscular Volume 88.5 Mean Corpuscular Hemoglobin 30.0 Mean Corpuscular Hemoglobin Concent 34.0 Red Cell Distribution Width 16.8 Platelet Count 272 Mean Platelet Volume 8.2 Neutrophils (%) (Auto) 81.4 Lymphocytes (%) (Auto) 11.4 Monocytes (%) (Auto) 6.5 Eosinophils (%) (Auto) 0.0 Basophils (%) (Auto) 0.7 Neutrophils # (Auto) 6.8 Lymphocytes # (Auto) 0.9 Monocytes # (Auto) 0.5 Eosinophils # (Auto) 0.0 Basophils # (Auto) 0.1 CBC Comment DIFF FINAL Differential Comment Blood Urea Nitrogen 13 Creatinine 0.28 Random Glucose 116 Total Protein 5.0 Albumin 1.4 Calcium Level 7.7 Phosphorus Level 3.1 Magnesium Level 1.9 Alkaline Phosphatase 70 Aspartate Amino Transf (AST/SGOT) LESS THAN 3 Alanine Aminotransferase (ALT/SGPT) 12 Total Bilirubin 0.4 Sodium Level 135 Potassium Level 3.7 Chloride Level 101 Carbon Dioxide Level 26.1 Anion Gap 8 Estimat Glomerular Filtration Rate 338 Date/Time Source Procedure Growth Status 11/15/16 05:20 Blood Peripheral Aerobic Blood Culture - Final NO GROWTH IN 5 DAYS Complete 11/15/16 05:20 Blood Peripheral Anaerobic Blood Culture - Final NO GROWTH IN 5 DAYS Complete 11/16/16 06:00 Sputum Endotracheal Gram Stain - Final Complete 11/16/16 06:00 Sputum Endotracheal Sputum Culture - Final HEAVY GROWTH NORMAL RESPIRATORY YOAN Complete 11/06/16 13:00 Urine Random Urine Urine Culture - Final <10,000 CFU/ML GRAM POSITIVE YOAN Complete 11/16/16 11:13 Wound Neck Gram Stain - Final Complete 11/16/16 11:13 Wound Neck Wound Culture - Final HEAVY GROWTH NORMAL SKIN YOAN... 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 Subarachnoid hemorrhage status left posterior communicating artery aneurysm coiling, ventriculostomy, left frontotemporal parietal decompressive craniectomy with duraplasty and evacuation of subdural hematoma 10/07/16 2. Status post tracheostomy currently on T-Piece S/P right bronchial artery embolization 12/01/16 3. PEG placement 4. Digital ischemia 5. Hypertension 6. History of tobacco abuse Plan 1. Physical therapy is providing range of motion. Mobilize as medical status allows 2. Occupational therapy is addressing ADLs and currently dependent 3. Speech therapy is following 4. SCDs in place for DVT prophylaxis 5. Continue to reposition every 2 hours 6. Will follow regarding ongoing rehabilitation needs at discharge in conjunction with case management who is working on [facility], [place]. 7. Will continue to follow while hospitalized and at discharge as appropriate Thelma Rojas MD Dec 02, 2016 14:41
[2016-12-02] MEDS: MELATONIN 5 MG TAB PO SCH (20:39)
[2016-12-03] VITALS (17 sets, daily range): BP systolic 147–153; BP diastolic 76–82; PULSE 66–76; RESP 20; TEMP 98.6–98.8; O2SAT 100
[2016-12-03] MEDS: DILTIAZEM HCL 90 MG TAB PO SCH ×4 (00:30→18:15)
[2016-12-03] MEDS: METOCLOPRAMIDE HCL 10 MG/2 ML VIAL IV PUSH SCH ×3 (02:03→18:15)
[2016-12-03] MEDS: RESP: ALBUTEROL 2.5 MG/IPRATROPIUM 0.5 MG NEB (SCH) NEB ×4 (03:34→20:50)
[2016-12-03] MEDS: CHLORHEXIDINE GLUCONATE 2 % 1 PACK (2 CLOTHS) TOP SCH (04:00)
[2016-12-03 05:19] LABS: HEMATOCRIT 26.4 % (39.0-51.0); MEAN CELL VOLUME 89.9 FL (80.0-100.0); MEAN CORPUSCULAR HEMOGLOBIN 30.1 PG (27.0-34.0); MEAN CORPUSCULAR HGB CONC 33.5 % (32.0-36.0); PLATELET COUNT 287 TH/MM3 (150-450); RED BLOOD COUNT 2.94 MIL/MM3 (4.50-5.90); RED CELL DISTRIBUTION WIDTH 16.3 % (11.6-17.2); REVIEW FLAG FINAL; WHITE BLOOD COUNT 10.2 TH/MM3 (4.0-11.0)
[2016-12-03 05:33] LABS: BICARBONATE 25.4 MEQ/L (21.0-32.0); POTASSIUM 3.9 MEQ/L (3.5-5.1)
[2016-12-03] MEDS: CHLORHEXIDINE 0.12% (ORAL KIT) 15 ML CUP MT SCH ×2 (08:00→20:01)
[2016-12-03] MEDS: levETIRAcetam 500 MG/5 ML UDC NG SCH ×2 (08:19→20:01)
[2016-12-03] MEDS: SODIUM CHLORIDE 0.9% FLUSH 10 ML FLUSH IV FLUSH SCH ×2 (08:19→20:01)
[2016-12-03] MEDS: ARTIFICIAL TEARS OPTH SOLN 15 ML BTL EACH EYE SCH ×3 (08:19→18:00)
[2016-12-03] MEDS: LANSOPRAZOLE SOLUTAB 30 MG TAB NG SCH (08:19)
[2016-12-03] MEDS: COLLAGENASE OINT 30 GM TUBE TOPICAL SCH (08:20)
[2016-12-03] MEDS: LACTOBACILLUS ACIDOPHILUS TAB PO SCH ×3 (08:20→18:00)
[2016-12-03] MEDS: POVIDONE IODINE 10% OINT 30 GM TUBE TOPICAL SCH (08:20)
[2016-12-03] MEDS: BACITRACIN TOP OINT 15 GM TUBE TOPICAL SCH ×2 (08:20→20:01)
[2016-12-03] MEDS: BENEPROTEIN POWDER 1 PACK G-TUBE SCH ×6 (08:21→18:00)
--- NOTE | 2016-12-03 14:57 | HHI.CCPN ---
Subjective Remarks/Hospital Course 10/07: 56-year-old male presents with intracranial bleed. Patient was transferred from [facility] at [facility]. As per the paramedics and the nurse who assisted the patient said that patient earlier this morning was coming down the stairs when he started feeling some left-sided weakness and numbness. He called 911 and by the time EMS arrived they detected some deficit and called a stroke alert. Patient was taken to [facility]. When patient arrived his mental status started to decline and he was intubated emergently in the ER. A CAT scan of the head showed subarachnoid and subdural bleed. He was taking emergently to an angio suite for coiling of the aneurysm and later on to OR for subdural hematoma evacuation. 10/08: Remains sedated, orally intubated on mechanical ventilation. Arouses off sedation and following commands with both upper extremities earlier. Ventriculostomy in place. ICP 7, CPP mid 80s. 10/09: Remains sedated, orally intubated on mechanical ventilation. Arouses off sedation and follows commands with both upper extremities. Ventriculostomy in place. 10/10: Remains sedated, orally intubated on mechanical ventilation. Arouses off sedation and follows commands and both upper extremities. Ventriculostomy in place. ICP 5. Failed C Pap trial yesterday. 10/11: Extubated on 10/10, tolerating well. Awake and alert. Appears confused, moving all 4 extremities. Ventriculostomy discontinued today by neurosurgery 10/13: Patient has developed severe vasospasm at the left MCA territory on TCD's that was treated with IV route verapamil 10/14: patient extubated overnight. was originally following commands and neuro intact. TCDs this morning with increase LIs over yesterday, particularly Left MCA territory. On my evaluation early this morning, patient was aphasic, not moving the right side of his body, not following commands. SBP 140s at that time. net 2L negative/24h and uop almost 1L/hr at the time. I immediately bolused with 2L NS iv, placed arterial and central lines, started phenylephrine , increased SBP to goal 200 - 220 mmHg. called interventional neuroradiology and accompanied patient down personally to IR for IA verapamil again. I remained with the patient managing his hemodynamics down in IR and providing anxiolysis IV. I accompanied patient back up to [facility] where patient again was neuro intact and following commands. Sodium downtrending to 135 and urine studies and serum osms suggestive of urine sodium losses and high uop. added Florinef to mitigate sodium losses, and increased mivf to 500cc/hr to maintain euvolemia. later in the day patient decompensated requiring intubation for hyoxemia, cxr suggestive of pulmonary edema. 2d echo with evidence of EF 40%, septal hypokinesis, moderate MR. On levo, vaso, phenylephrine. difficult to get to goal SBP 200 mmHg, likely due to myocardial dysfunction. decreased goal to 180 - 200 mmHg to balance cardiac vs. neurologic goals. 10/15 Patient was discussed with Dr. Sullivan at shift change. Isuprel was initiated in effort to improve cardiac output as dobutamine not available and concerned with use of milrinone given long half life. Systolic blood pressure was relatively stable with perhaps some modest improvement from 170s to 180s for several hours after initiation. Notified when patient became abruptly hypotensive despite vasopressin, levophed 20 mcg/min, Greyson-Synephrine 300 mcg/m. He was also hypoxemic with sats in 80s despite PCV with PEEP 8 and FiO2 100%, respiratory rate in the 30s. He had decreased breath sounds bilaterally and was concerned for air trapping so removed from mechanical ventilation and bagged without improvement. Placed patient back on mechanical ventilation and provide recruitment maneuvers and increased PEEP to 12 which resulted in improvement of sats to 88% to 92%. Ordered Flolan. Discontinued isuprel and initiated epinephrine. R radial art line would not draw blood . Performed u/s guided femoral artery stick to confirm hypoxemia on ABG given poor wave form on pulse ox and PaO2 was 58. Placed new L radial art line and this resulted in ~ 30 point increase in SBP relative to prior line but patient ultimately on vasopressin, levophed 30 micrograms per minute, Greyson-Synephrine 300 micrograms per minute, epinephrine 12 mcg/min and unable to maintain target pressure (SBP in 150s). Given calcium chloride. patient with shaking movements all extremities, pupils 2mm and sluggish, no eye deviation. Rigors seemed most likely but unable to emergently rule out seizures so loaded with fosphenytoin to avoid secondary injury from seizure activity. WBC increasing and concern for HCAP so pancultured and placed on cefepime, vancomycin, azithromycin. Hydrocortisone 100 mg IV every 8 hours initiated due to concern for septic shock in a patient who has been refractory to all other above measures. Patient is to hemodynamically unstable and hypoxic for transport for neurologic imaging. Urine output has declined to 180-200 ML's per hour. Back off maintenance IV fluids to 200 ML's per hour. Bedside echo demonstrates decreased LV function with normal RV contractility and collapsible IVC suggesting ongoing maintenance fluid administration is appropriate. 10/15 additional visit: continued to deteriorate throughout the day. Seen multiple times. hypoxic on 100% fio2, flolan. required nimbex drip to maintain. repeat bedside critical care ultrasound still demonstrates severe LV dysfunction , decompressed RV, IVC more dilated than previous echo overnight, however still with respiratory variation. femoral arterial line placed with better waveform and higher pressure (likely SVR too high to allow accurate measurement of radial pressure). Pulse contour analysis without stroke volume variation, CI 3.6. SV 52mL. trialed additional albumin without improvement in hemodynamics. uop slower than before, but still significant salt wasting in the urine- sodium dropped to 125 from 132 despite already on 3% nacl infusion and aggressive sodium replacements. forced to give 23% nacl and salt tabs. declining clinically despite maximal therapy. 10/16: continues to be maximally critically ill. LV dysfunction persists. starting to get volume overloaded, but given concern for ongoing cerebral vasospasm, unable to actively diurese patient. sodium wasting persists, but uop downtrending slightly. very hypokalemic today, likely due to steroids. remains intubated, sedated, paralyzed, on flolan. CXR today appears worse with worsening airspace disease. Lactate remains slightly elevated, confirming persistent shock. 10/17: Lung infiltrates dense bilaterally, reflected in shunting and problems with oxygenation. Developed vasospasm on TCDs and required angiogram and intra- arterial verapamil again today. 10/18: SBP 160 - 170 range. FiO2 0.55. BNP > 5000. Not tolerating attempts at maintaining higher BP due to worsening heart failure. Several episodes of vasospasm. Watch daily TCDs closely. Sputum no growth. 10/19: Tmax 99.8. Currently 99. Remains on 4 vasopressors and epoprostenol 10/20: Yesterday. Returned IR for intra-arterial calcium channel jose infusion for vasospasm. Transcranial Dopplers today Still pending. Remains on significant vasopressor support. 10/21: Good response to diuresis, check BNP. TCDs pending. Heart failure remains a major problem. 10/22: CVP 21 - 22, finger tips blue, digits pale white despite high dose milrinone dilation. Greyson and vaso much reduced. Will try diltiazem gtt for digital ischemia. Urine remains > 200/hr and proximal limbs are well perfused. This digital ischemia appears to be a local phenomenon ala Raynaud's. New subcutaneous emphysema right anterior chest wall. 10/23: Old CVL removed. Fingertips remain marginal, some necrotic despite diltiazem and milrinone treatment for digital ischemia. Cardiac output > 7 liters/min and urine copious, confirming good perfusion pressure and flow. This continues to be a local phenomenon of the digits ala Raynaud's. We are trying to wean vasopressors off but are required to maintaining a cerebral perfusion pressure suitable for the treatment of aneurysmal subarachnoid bleed. Frankly, the importance of brain function eclipses fingertips. 10/24: Afebrile. Well perfused except for index finger left hand, few tips fingers right. Arms and hands warmer with resolving circumferential edema. Diltiazem and milrinone gtt continue. Greyson to 10 mics/min. 10/25: Digits are warm and well perfused except left index and right 4th fingertips; demarcated and not viable. Dry. Diltiazem and milrinone infusions continue to help reverse digital ischemia. 10/26: Forced diuresis continues and BP remains nicely elevated. Hands and digits warm aside from left index and right 4th fingertips which have demarcated. 10/27: Good response to diuretics. Perfusion pressure and documented flow excellent. Continue to wean vent. 10/28: Start SBTs. Fluid balance back toward normal. 10/29: Tolerating SBTs. Lowering sedation. Edema resolving. 10/30: Tolerating tube feeds, will taper off TPN and remove central line. Continue diuretics. 10/31: net -3L over 24h. mental status at baseline. tolerating CPAP, but does not have the mental status to protect airway. will likely need trach/peg. placement will be a problem due to lack of funding. 11/01: no changes or improvements. discussed with yesterday and she "does not want any more setbacks" and would prefer trach versus trial of extubation. I agree with her assessment. plan for trach today. placement is still a significant problem. net -2L/24h. 11/02: wbc uptrending, febrile. antonio cultured, started empiric abx today. failed SBT overnight and placed back on rate. 11/03: Tolerating CPAP today, following commands. Low-grade fever cultures pending. WBC count normal today 11/04: Remains on TPs since yesterday. Neuro exam remains stable. Follows commands weakly. Na 152 11/05: Remains off vent for 48 hours now. Sitting up in stretcher chair today. Na improved to 149. remains weak but improving 11/06: Continues to tolerate TPs well. Neuro exam unchanged. Sodium 148 today. Continues to spike intermittent fever Tmax 102.7. 11/07: Continued fevers, no leukocytosis. 11/08: Stable for replacement of bone flap. 11/09: Getting a bit excessively diuresed, will decrease lasix and convert to PO. Fingertips and toes demarcating as expected. No immediate action required except for continued diltiazem therapy. Clearly a Raynaud's type digital ischemia as peripheral perfusion and urine output indicated excellent peripheral perfusion. 11/10: Tracks with eyes today, nods to questions. Failed swallow again. 11/11: Plan for PEG, GI consulted. Bone flap replacement on hold due to blood cultures and fever. 11/12: May get PEG today, Bone flap to be replaced coming week per Dr. Perry. Afebrile no white count 11/13: Neuro exam unchanged. Na was 150 yesterday, repeat CMP pending. Left flap remains sunken 11/14: emesis overnight with ? aspiration event. no increased O2 requirement, but fever to 102.5 today. recultured. no complaints from patient. 11/15: No changes. still low suspicion for infection. Awaiting ID clearance for bone flap replacement. also awaiting placement 11/16: Placed on full ventilator support overnight for acute hypoxemic respiratory failure due to mucous plugging. Mucomyst added. Not on any sedation. Chest x-ray back to baseline-no need a bronchoscopy at this time, but will do if there is recurrent plugging. Will check sputum culture, and trach site culture 11/17: Breathing comfortably on the vent, on CPAP now. Off all sedation. We'll attempt T piece yesterday. Sodium normal 11/18: Currently tolerating TP. Patient had a few episodes of nausea vomiting. KUB shows ileus. Overnight was started on Reglan IV and when necessary Zofran. We'll keep nothing by mouth until ileus resolved. 11/19: Back on vent rate due to poor spontaneous effort. Hgb down 2 gms - looks like dilution; follow closely. VS without change. Ileus has resolved. 11/20: ABIs normal with normal pressure. Inflow satisfactory to all limbs. GI tract working well. 11/21: Tmax 99.1. Positive BM from fecal containing device. Tolerating t piece 24 hours. Tube feeds are at goal. Okay for OR from ID standpoint 11/22 currently resting in bed in no acute distress. On TP since 48 hours. Tube feeds at goal. 11/23: Resting in bed on T piece and 72 hours. Tube feeding at goals. Cleared from ID for plastics. 11/26: rapid response for massive hemoptysis. Patient rapidly reintubated through mouth and trach tube removed at same time. No bleeding from the trach stoma or above. All blood is coming from below. Bronchoscopy demonstrated large clots in both left and right mainstems. Right side clot 2 x 2 x 3 cm. Finally suctioned clear enough to inspect - no bleeding source found. Will keep on vent with PEEP 12 and heavy sedation. Plts 380,000, INR 1.0 11/27: CTA reviewed. He appears to bee bleeding from the anterior segment of the right upper lobe, which is displaced inferiorly by apical bullous disease. 11/28: remains sedated and paralyzed. still requiring active transfusions. but no longer hypoxic and bloody secretions are much less. 11/29: overnight ett became dislodged leading to hypoxia, bradycardia, PEA arrest. ~10min CPR with ROSC and reintubation. this morning, off sedation, opens eyes spontaneously but no other movements. repeat CTA chest without evidence of extravasation from area of massive hemoptysis. 11/30: Resting in bed in no acute distress. Arousable and follows commands. Tolerating tube feed. Afebrile. 12/01: Afebrile. Since 6 AM, every hour with copious amounts of bright red blood per tracheostomy/TPs. IR for possible right bronchial artery embolization today. Noted likely culprit on CTA 11/26. Hasn't had active bleeding since then. 10/20: Afebrile. Status post embolization 2 right bronchial artery yesterday. Currently old blood from tracheostomy site. Saturations 100% on 40% FiO2. Tolerating tube feeding. Subjective 12/03: Resting in bed on ventilator via tracheostomy. No new issues overnight. Hemodynamically stable. 100% saturations Objective Vital Signs Date Time Temp Pulse Resp B/P (MAP) Pulse Ox O2 Delivery O2 Flow Rate FiO2 12/03/16 10:00 75 12/03/16 08:02 100 40 12/03/16 08:00 98.6 20 149/82 (104) Intake and Output 12/03/16 12/03/16 12/04/16 08:00 16:00 00:00 Intake Total 552 ml Output Total 250 ml Balance 302 ml Result Diagram: 12/03/16 0426 12/03/16 0426 Imaging Last Impressions Chest X-Ray 12/02/16 0000 Signed Impressions: Service Date/Time: Friday, December 02, 2016 06:10 - CONCLUSION: 1. Slightly improving right basilar density. 2. Chronic appearing interstitial densities. Luis Benites MD Angiography 12/01/16 0000 Signed Impressions: Service Date/Time: November 14:02 - CONCLUSION: 1. Right side up on her hemorrhage with angiography of the right bronchial artery revealing no source of active hemorrhage. Empiric embolization was performed. Santos Crockett Jr., MD Chest CT 11/28/16 0000 Signed Impressions: Service Date/Time: Tuesday, November 29, 2016 05:13 - CONCLUSION: 1. Patchy alveolar disease characteristic of edema or pneumonia. 2. Severe emphysema 3. Gastrojejunostomy tube looped in the stomach Harvey Morejon MD Chest/Thorax CTA 11/26/16 0000 Signed Impressions: Service Date/Time: Saturday, November 26, 2016 20:18 - CONCLUSION: 1. Extensive filling defects within the right central bronchial tree characteristic of endobronchial hemorrhage. 2. Consolidating airspace disease in the right upper lobe and right lower lobe characteristic of hemorrhage and post obstructive lung consolidation. 3. Right bronchial artery is identified extending to the central right bronchial region 4. Advanced COPD. Nasir Amanda MD Abdomen X-Ray 11/19/16 0600 Signed Impressions: Service Date/Time: Saturday, November 19, 2016 02:44 - CONCLUSION: Unchanged bowel gas pattern potentially relating to an ileus. Santos Crockett Jr., MD Transcranial Doppler Study Complete 10/20/16 0600 Signed Impressions: Service Date/Time: October 07:54 - CONCLUSION: Slight interval elevation of flow velocity measurements and ratio on the left Yosvany Polk MD Liver Ultrasound 10/19/16 0000 Signed Impressions: Service Date/Time: Wednesday, October 19, 2016 11:20 - CONCLUSION: 1. Sludge filled gallbladder with thickened wall. 2. Moderate size bilateral pleural effusions and mild upper abdominal ascites. Santos Vazquez MD Cerebral Arteriogram 10/19/16 0000 Signed Impressions: Service Date/Time: Wednesday, October 19, 2016 12:47 - CONCLUSION: Uncomplicated cerebral arteriography with spasmolytic therapy as described in detail above. Yosvany Polk MD Head CT 10/17/16 0000 Signed Impressions: Service Date/Time: Monday, October 17, 2016 15:06 - CONCLUSION: Ventricles are slightly larger without ventriculostomy. Edema in the left hemisphere the brain herniating through the operative site. Remington Woodward MD FACR Infusion Non-thrombolysis 10/14/16 1103 Signed Impressions: Service Date/Time: Friday, October 14, 2016 10:21 - CONCLUSION: 1. Uncomplicated infusion for spasmolysis Harvey Morejon MD Neck CTA 10/07/16 0000 Signed Impressions: Service Date/Time: Friday, October 07, 2016 15:03 - CONCLUSION: 1. Mild carotid bulb atherosclerotic calcification bilaterally. However, no significant stenosis is present in either internal carotid artery. 2. Paranasal sinus mucoperiosteal thickening. 3. Please refer to brain CTA report for description of the intracranial findings. Yosvany Ramirez MD Head CTA 10/07/16 0000 Signed Impressions: Service Date/Time: Friday, October 07, 2016 15:03 - CONCLUSION: 1. 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 2. Large left subdural hematoma measuring 1.3 cm in depth with a significant, 1.6 cm left to right subfalcine shift. Joni Shelton MD Objective Remarks GENERAL: 56-year-old male. Currently on ventilator via tracheostomy HEAD: Status post left craniectomy. Left flap sunken, Incision healing well EYES: 3 mm bilaterally and reactive NECK: trach site is clean dry and intact. Copious amount of bright red blood per ventilator device CARDIOVASCULAR: RRR. S1, S2 no S4. Without murmur RESPIRATORY: TP. Diffuse rhonchi and mobile secretions. bloody secretions are improving. GASTROINTESTINAL: Abdomen soft, non-tender, nondistended. No guarding. MUSCULOSKELETAL: Ischemic changes worst to left index finger tip, right 4th fingertip, and majority of R toes. Demarcating, dry. NEURO EXAM: Cranial nerves II through XII grossly intact.Right UE weaker than left, follows commands x4. SKIN: Stage IV decubitus ulcer 4 x 2 bilateral sacral. Procedures 10/13 Four-vessel cerebral angiography with verapamil treatment of vasospasm A/P Assessment and Plan Neuro/Psych Status post left frontotemporal parietal craniectomy 10/08 for evacuation subdural hematoma/duraplasty Left subdural hematoma - 1.3 cm with 1.6 shift left to right Subarachnoid hemorrhage Alvarado and Rodriguez 5, Carroll grade 4 - left P-comm status post 4 coiling 10/08 Hypoxic-Ischemic Encephalopathy - Nimodipine completed 21 days. Initiated 10/13. - Levetiracetam 500 mg per tube q12h. - 10/13 and 10/14 and 10/17) 10/19 left MCA territory vasospasm, status post successful verapamil treatment by IR with 20 mg verapamil - 10/17 CT brain - less hemisphere edema with herniation through left craniotomy site, now improved. - Dr. Perry/neurosurgery. Plan to replace bone flap okayed by infectious disease. - hold sedation until neuro exam improves. frequent neuro checks. Respiratory: Acute hypoxic Respiratory failure secondary to mucous plugging Possible healthcare associated pneumonia ARDS- resolved Noncardiogenic/neurogenic pulmonary edema- resolved. Chronic respiratory failure requiring tracheostomy Massive Hemoptysis Aspiration pneumonitis -- PRVC 20/500/0.9/ - Ventilator bundle -- Albuterol/ipratropium aerosols every 6 hours with albuterol aerosols every [address] angiogram chest/neck revealed right centrilobular bleeding likely source right bronchial artery. Repeat CT chest 11/29/no visualization of active bleeding. -- Follow-up on sputum culture -- s/p Trach Dr. Sullivan/Dr. Collazo 11/01 #8 Beti. --Redo trach 11/[address] Crockett 12/01 - embolization of right bronchial artery by IR Cardiovascular: Septic and cardiogenic shock- resolved. LV dysfunction secondary to SAH - persistent, now resolved Elevated troponin- secondary to SAH, unlikely to be ACS. - resolved. Pulmonary hypertension s/p PEA arrest 11/28 after ett dislodgement, hypoxic arrest Continue free water 200mL per tube q6h. Echocardiogram 10/14/16 revealed EF 40-45%. Septal hypokinesis. Moderate MR. Severe pulmonary hypertension with pulmonary artery pressures estimated 61 mmHg Limited Echo 11/06: LVEF 60-65%, Trivial mitral and tricuspid regurgitation, No vegetations noted. Continue diltiazem's 90 mg by mouth every 6 hours and furosemide 20 mg daily currently off vasopressors. Renal: Cerebral Salt Wasting/SIADH-resolved now hypernatremic Strict I/Os. See FEN below. Creatinine currently within normal limits -> resolved. Monitor urine output FEN/GI: Ileus Hypokalemia Elevated transaminases Hyperammonemia - Currently on Glucerna 1.5 goal 60 cc an hour. Currently at 30 cc now. Testicle today - free water per tube - ICU electrolyte protocol. aggressively replace potassium losses. - Lansoprazole 30 mg by tube daily for GI prophylaxis - Continue bowel regimen - Continue PEG feeding. s/p PEG 11/12/16 Heme/ID: Septic Shock- resolved. Possible HCAP New Fever, leukocytosis, staph epi bacteremia - limited Echo to evaluate vegetation-neg. ID following - Follow-up on sputum culture, trach site culture - Digital Ischemia with necrosis, conservative management - s/p Diltiazem and milrinone infusions - Digits have demarcated, allow auto amputation. Cardizem PO currently and 90 mg every 6 hours (for digital ischemia, Raynaud's) Continue bacitracin twice a day to affected areas Pertinent cultures 10/15 - blood cultures - 1 out of 4 anaerobic gram-negative cocci possibly Veillonella 10/15 - sputum - beta strep not A, strep species 10/19 cultures NG 10/21 1/4 bottles blood cultures coag negative staph. Culture 11/01. coag neg stah /4 bottles 11/16 sputum in trach site cultures negative s/p levofloxacin x 7 days end 11/15/16 Fluconazole discontinued per infectious disease Endocrine: Presumed Adrenal Insufficiency Discontinued fludrocortisone 10/18. Sliding-scale insulin with NovoLog -Accu-Cheks every 4 hours to maintain euglycemia MSK: Stage IV bilateral sacral decubitus ulcers Xeroform/ABD secured with paper tape change daily PT evaluate and treat Prophylaxis: GI Prophylaxis - lansoprazole DVT Prophylaxis-- SCDs, d/c heparin subcutaneous hemoptysis Lines: - 10/14 right SC TLC, removed 10/22 - 10/14 right radial art line, removed 10/14 - 10/15 left radial art line, removed 10/16 - 10/22 left groin triple lumen placed, d/c 10/30 - d/c ramires. Critical care time 30 minutes Cyrus Boland MD Dec 03, 2016 14:57
[2016-12-03] MEDS ORDERED: RESP: RACEPINEPHRINE 2.25% 0.5 ML NEB NEB PRN (15:00)
[2016-12-03] MEDS: MELATONIN 5 MG TAB PO SCH (20:01)
[2016-12-04] VITALS (18 sets, daily range): BP systolic 141–175; BP diastolic 76–93; PULSE 68–84; RESP 20–22; TEMP 98.5–99.1; O2SAT 95–100
[2016-12-04] MEDS: DILTIAZEM HCL 90 MG TAB PO SCH ×5 (00:35→23:44)
[2016-12-04] MEDS: RESP: ALBUTEROL 2.5 MG/IPRATROPIUM 0.5 MG NEB (SCH) NEB ×5 (01:17→20:23)
[2016-12-04] MEDS: METOCLOPRAMIDE HCL 10 MG/2 ML VIAL IV PUSH SCH ×3 (03:17→18:00)
[2016-12-04 03:33] LABS: HEMATOCRIT 27.1 % (39.0-51.0); MEAN CELL VOLUME 90.3 FL (80.0-100.0); MEAN CORPUSCULAR HEMOGLOBIN 30.3 PG (27.0-34.0); MEAN CORPUSCULAR HGB CONC 33.6 % (32.0-36.0); PLATELET COUNT 267 TH/MM3 (150-450); RED CELL DISTRIBUTION WIDTH 16.3 % (11.6-17.2); REVIEW FLAG FINAL; WHITE BLOOD COUNT 9.4 TH/MM3 (4.0-11.0)
[2016-12-04] MEDS: CHLORHEXIDINE GLUCONATE 2 % 1 PACK (2 CLOTHS) TOP SCH (04:00)
[2016-12-04] MEDS: CHLORHEXIDINE 0.12% (ORAL KIT) 15 ML CUP MT SCH ×2 (08:00→20:12)
[2016-12-04] MEDS: COLLAGENASE OINT 30 GM TUBE TOPICAL SCH (09:00)
[2016-12-04] MEDS: BACITRACIN TOP OINT 15 GM TUBE TOPICAL SCH ×2 (09:00→20:12)
[2016-12-04] MEDS: POVIDONE IODINE 10% OINT 30 GM TUBE TOPICAL SCH (09:00)
[2016-12-04] MEDS: BENEPROTEIN POWDER 1 PACK G-TUBE SCH ×6 (09:00→18:00)
[2016-12-04] MEDS: ARTIFICIAL TEARS OPTH SOLN 15 ML BTL EACH EYE SCH ×3 (09:00→18:00)
[2016-12-04] MEDS ORDERED: LABETALOL HCL 100 MG/20 ML VIAL IV PUSH PRN (09:15)
[2016-12-04] MEDS ORDERED: hydrALAZINE HCL 20 MG/ML VIAL IV PUSH PRN (09:15)
[2016-12-04] MEDS ORDERED: NITROGLYCERIN 2% OINT 1 GM PACKET TOPICAL PRN (09:15)
[2016-12-04] MEDS ORDERED: ENALAPRILAT 1.25 MG/ML VIAL IV PUSH PRN (09:15)
--- NOTE | 2016-12-04 09:19 | HHI.CCPN ---
Subjective Remarks/Hospital Course 10/07: 56-year-old male presents with intracranial bleed. Patient was transferred from [facility] at [facility]. As per the paramedics and the nurse who assisted the patient said that patient earlier this morning was coming down the stairs when he started feeling some left-sided weakness and numbness. He called 911 and by the time EMS arrived they detected some deficit and called a stroke alert. Patient was taken to [facility]. When patient arrived his mental status started to decline and he was intubated emergently in the ER. A CAT scan of the head showed subarachnoid and subdural bleed. He was taking emergently to an angio suite for coiling of the aneurysm and later on to OR for subdural hematoma evacuation. 10/08: Remains sedated, orally intubated on mechanical ventilation. Arouses off sedation and following commands with both upper extremities earlier. Ventriculostomy in place. ICP 7, CPP mid 80s. 10/09: Remains sedated, orally intubated on mechanical ventilation. Arouses off sedation and follows commands with both upper extremities. Ventriculostomy in place. 10/10: Remains sedated, orally intubated on mechanical ventilation. Arouses off sedation and follows commands and both upper extremities. Ventriculostomy in place. ICP 5. Failed C Pap trial yesterday. 10/11: Extubated on 10/10, tolerating well. Awake and alert. Appears confused, moving all 4 extremities. Ventriculostomy discontinued today by neurosurgery 10/13: Patient has developed severe vasospasm at the left MCA territory on TCD's that was treated with IV route verapamil 10/14: patient extubated overnight. was originally following commands and neuro intact. TCDs this morning with increase LIs over yesterday, particularly Left MCA territory. On my evaluation early this morning, patient was aphasic, not moving the right side of his body, not following commands. SBP 140s at that time. net 2L negative/24h and uop almost 1L/hr at the time. I immediately bolused with 2L NS iv, placed arterial and central lines, started phenylephrine , increased SBP to goal 200 - 220 mmHg. called interventional neuroradiology and accompanied patient down personally to IR for IA verapamil again. I remained with the patient managing his hemodynamics down in IR and providing anxiolysis IV. I accompanied patient back up to [facility] where patient again was neuro intact and following commands. Sodium downtrending to 135 and urine studies and serum osms suggestive of urine sodium losses and high uop. added Florinef to mitigate sodium losses, and increased mivf to 500cc/hr to maintain euvolemia. later in the day patient decompensated requiring intubation for hyoxemia, cxr suggestive of pulmonary edema. 2d echo with evidence of EF 40%, septal hypokinesis, moderate MR. On levo, vaso, phenylephrine. difficult to get to goal SBP 200 mmHg, likely due to myocardial dysfunction. decreased goal to 180 - 200 mmHg to balance cardiac vs. neurologic goals. 10/15 Patient was discussed with Dr. Sullivan at shift change. Isuprel was initiated in effort to improve cardiac output as dobutamine not available and concerned with use of milrinone given long half life. Systolic blood pressure was relatively stable with perhaps some modest improvement from 170s to 180s for several hours after initiation. Notified when patient became abruptly hypotensive despite vasopressin, levophed 20 mcg/min, Greyson-Synephrine 300 mcg/m. He was also hypoxemic with sats in 80s despite PCV with PEEP 8 and FiO2 100%, respiratory rate in the 30s. He had decreased breath sounds bilaterally and was concerned for air trapping so removed from mechanical ventilation and bagged without improvement. Placed patient back on mechanical ventilation and provide recruitment maneuvers and increased PEEP to 12 which resulted in improvement of sats to 88% to 92%. Ordered Flolan. Discontinued isuprel and initiated epinephrine. R radial art line would not draw blood . Performed u/s guided femoral artery stick to confirm hypoxemia on ABG given poor wave form on pulse ox and PaO2 was 58. Placed new L radial art line and this resulted in ~ 30 point increase in SBP relative to prior line but patient ultimately on vasopressin, levophed 30 micrograms per minute, Greyson-Synephrine 300 micrograms per minute, epinephrine 12 mcg/min and unable to maintain target pressure (SBP in 150s). Given calcium chloride. patient with shaking movements all extremities, pupils 2mm and sluggish, no eye deviation. Rigors seemed most likely but unable to emergently rule out seizures so loaded with fosphenytoin to avoid secondary injury from seizure activity. WBC increasing and concern for HCAP so pancultured and placed on cefepime, vancomycin, azithromycin. Hydrocortisone 100 mg IV every 8 hours initiated due to concern for septic shock in a patient who has been refractory to all other above measures. Patient is to hemodynamically unstable and hypoxic for transport for neurologic imaging. Urine output has declined to 180-200 ML's per hour. Back off maintenance IV fluids to 200 ML's per hour. Bedside echo demonstrates decreased LV function with normal RV contractility and collapsible IVC suggesting ongoing maintenance fluid administration is appropriate. 10/15 additional visit: continued to deteriorate throughout the day. Seen multiple times. hypoxic on 100% fio2, flolan. required nimbex drip to maintain. repeat bedside critical care ultrasound still demonstrates severe LV dysfunction , decompressed RV, IVC more dilated than previous echo overnight, however still with respiratory variation. femoral arterial line placed with better waveform and higher pressure (likely SVR too high to allow accurate measurement of radial pressure). Pulse contour analysis without stroke volume variation, CI 3.6. SV 52mL. trialed additional albumin without improvement in hemodynamics. uop slower than before, but still significant salt wasting in the urine- sodium dropped to 125 from 132 despite already on 3% nacl infusion and aggressive sodium replacements. forced to give 23% nacl and salt tabs. declining clinically despite maximal therapy. 10/16: continues to be maximally critically ill. LV dysfunction persists. starting to get volume overloaded, but given concern for ongoing cerebral vasospasm, unable to actively diurese patient. sodium wasting persists, but uop downtrending slightly. very hypokalemic today, likely due to steroids. remains intubated, sedated, paralyzed, on flolan. CXR today appears worse with worsening airspace disease. Lactate remains slightly elevated, confirming persistent shock. 10/17: Lung infiltrates dense bilaterally, reflected in shunting and problems with oxygenation. Developed vasospasm on TCDs and required angiogram and intra- arterial verapamil again today. 10/18: SBP 160 - 170 range. FiO2 0.55. BNP > 5000. Not tolerating attempts at maintaining higher BP due to worsening heart failure. Several episodes of vasospasm. Watch daily TCDs closely. Sputum no growth. 10/19: Tmax 99.8. Currently 99. Remains on 4 vasopressors and epoprostenol 10/20: Yesterday. Returned IR for intra-arterial calcium channel jose infusion for vasospasm. Transcranial Dopplers today Still pending. Remains on significant vasopressor support. 10/21: Good response to diuresis, check BNP. TCDs pending. Heart failure remains a major problem. 10/22: CVP 21 - 22, finger tips blue, digits pale white despite high dose milrinone dilation. Greyson and vaso much reduced. Will try diltiazem gtt for digital ischemia. Urine remains > 200/hr and proximal limbs are well perfused. This digital ischemia appears to be a local phenomenon ala Raynaud's. New subcutaneous emphysema right anterior chest wall. 10/23: Old CVL removed. Fingertips remain marginal, some necrotic despite diltiazem and milrinone treatment for digital ischemia. Cardiac output > 7 liters/min and urine copious, confirming good perfusion pressure and flow. This continues to be a local phenomenon of the digits ala Raynaud's. We are trying to wean vasopressors off but are required to maintaining a cerebral perfusion pressure suitable for the treatment of aneurysmal subarachnoid bleed. Frankly, the importance of brain function eclipses fingertips. 10/24: Afebrile. Well perfused except for index finger left hand, few tips fingers right. Arms and hands warmer with resolving circumferential edema. Diltiazem and milrinone gtt continue. Greyson to 10 mics/min. 10/25: Digits are warm and well perfused except left index and right 4th fingertips; demarcated and not viable. Dry. Diltiazem and milrinone infusions continue to help reverse digital ischemia. 10/26: Forced diuresis continues and BP remains nicely elevated. Hands and digits warm aside from left index and right 4th fingertips which have demarcated. 10/27: Good response to diuretics. Perfusion pressure and documented flow excellent. Continue to wean vent. 10/28: Start SBTs. Fluid balance back toward normal. 10/29: Tolerating SBTs. Lowering sedation. Edema resolving. 10/30: Tolerating tube feeds, will taper off TPN and remove central line. Continue diuretics. 10/31: net -3L over 24h. mental status at baseline. tolerating CPAP, but does not have the mental status to protect airway. will likely need trach/peg. placement will be a problem due to lack of funding. 11/01: no changes or improvements. discussed with yesterday and she "does not want any more setbacks" and would prefer trach versus trial of extubation. I agree with her assessment. plan for trach today. placement is still a significant problem. net -2L/24h. 11/02: wbc uptrending, febrile. antonio cultured, started empiric abx today. failed SBT overnight and placed back on rate. 11/03: Tolerating CPAP today, following commands. Low-grade fever cultures pending. WBC count normal today 11/04: Remains on TPs since yesterday. Neuro exam remains stable. Follows commands weakly. Na 152 11/05: Remains off vent for 48 hours now. Sitting up in stretcher chair today. Na improved to 149. remains weak but improving 11/06: Continues to tolerate TPs well. Neuro exam unchanged. Sodium 148 today. Continues to spike intermittent fever Tmax 102.7. 11/07: Continued fevers, no leukocytosis. 11/08: Stable for replacement of bone flap. 11/09: Getting a bit excessively diuresed, will decrease lasix and convert to PO. Fingertips and toes demarcating as expected. No immediate action required except for continued diltiazem therapy. Clearly a Raynaud's type digital ischemia as peripheral perfusion and urine output indicated excellent peripheral perfusion. 11/10: Tracks with eyes today, nods to questions. Failed swallow again. 11/11: Plan for PEG, GI consulted. Bone flap replacement on hold due to blood cultures and fever. 11/12: May get PEG today, Bone flap to be replaced coming week per Dr. Perry. Afebrile no white count 11/13: Neuro exam unchanged. Na was 150 yesterday, repeat CMP pending. Left flap remains sunken 11/14: emesis overnight with ? aspiration event. no increased O2 requirement, but fever to 102.5 today. recultured. no complaints from patient. 11/15: No changes. still low suspicion for infection. Awaiting ID clearance for bone flap replacement. also awaiting placement 11/16: Placed on full ventilator support overnight for acute hypoxemic respiratory failure due to mucous plugging. Mucomyst added. Not on any sedation. Chest x-ray back to baseline-no need a bronchoscopy at this time, but will do if there is recurrent plugging. Will check sputum culture, and trach site culture 11/17: Breathing comfortably on the vent, on CPAP now. Off all sedation. We'll attempt T piece yesterday. Sodium normal 11/18: Currently tolerating TP. Patient had a few episodes of nausea vomiting. KUB shows ileus. Overnight was started on Reglan IV and when necessary Zofran. We'll keep nothing by mouth until ileus resolved. 11/19: Back on vent rate due to poor spontaneous effort. Hgb down 2 gms - looks like dilution; follow closely. VS without change. Ileus has resolved. 11/20: ABIs normal with normal pressure. Inflow satisfactory to all limbs. GI tract working well. 11/21: Tmax 99.1. Positive BM from fecal containing device. Tolerating t piece 24 hours. Tube feeds are at goal. Okay for OR from ID standpoint 11/22 currently resting in bed in no acute distress. On TP since 48 hours. Tube feeds at goal. 11/23: Resting in bed on T piece and 72 hours. Tube feeding at goals. Cleared from ID for plastics. 11/26: rapid response for massive hemoptysis. Patient rapidly reintubated through mouth and trach tube removed at same time. No bleeding from the trach stoma or above. All blood is coming from below. Bronchoscopy demonstrated large clots in both left and right mainstems. Right side clot 2 x 2 x 3 cm. Finally suctioned clear enough to inspect - no bleeding source found. Will keep on vent with PEEP 12 and heavy sedation. Plts 380,000, INR 1.0 11/27: CTA reviewed. He appears to bee bleeding from the anterior segment of the right upper lobe, which is displaced inferiorly by apical bullous disease. 11/28: remains sedated and paralyzed. still requiring active transfusions. but no longer hypoxic and bloody secretions are much less. 11/29: overnight ett became dislodged leading to hypoxia, bradycardia, PEA arrest. ~10min CPR with ROSC and reintubation. this morning, off sedation, opens eyes spontaneously but no other movements. repeat CTA chest without evidence of extravasation from area of massive hemoptysis. 11/30: Resting in bed in no acute distress. Arousable and follows commands. Tolerating tube feed. Afebrile. 12/01: Afebrile. Since 6 AM, every hour with copious amounts of bright red blood per tracheostomy/TPs. IR for possible right bronchial artery embolization today. Noted likely culprit on CTA 11/26. Hasn't had active bleeding since then. 10/20: Afebrile. Status post embolization 2 right bronchial artery yesterday. Currently old blood from tracheostomy site. Saturations 100% on 40% FiO2. Tolerating tube feeding. 12/03: Resting in bed on ventilator via tracheostomy. No new issues overnight. Hemodynamically stable. 100% saturations Subjective 12/04: Afebrile. Noted increasing edema right greater than left upper extremity. Minimal bloody secretions from tracheostomy. Currently resting in bed in no acute distress. Objective Vital Signs Date Time Temp Pulse Resp B/P (MAP) Pulse Ox O2 Delivery O2 Flow Rate FiO2 12/04/16 09:03 100 30 12/04/16 08:00 84 12/04/16 08:00 98.5 20 162/85 (110) Intake and Output 12/04/16 12/04/16 12/05/16 08:00 16:00 00:00 Intake Total 603 ml Output Total 900 ml Balance -297 ml Result Diagram: 12/04/16 0315 12/03/16 0426 Other Results Microbiology Date/Time Source Procedure Growth Status 11/15/16 05:20 Blood Peripheral Aerobic Blood Culture - Final NO GROWTH IN 5 DAYS Complete 11/15/16 05:20 Blood Peripheral Anaerobic Blood Culture - Final NO GROWTH IN 5 DAYS Complete 11/16/16 06:00 Sputum Endotracheal Gram Stain - Final Complete 11/16/16 06:00 Sputum Endotracheal Sputum Culture - Final HEAVY GROWTH NORMAL RESPIRATORY YOAN Complete 11/06/16 13:00 Urine Random Urine Urine Culture - Final <10,000 CFU/ML GRAM POSITIVE YOAN Complete 11/16/16 11:13 Wound Neck Gram Stain - Final Complete 11/16/16 11:13 Wound Neck Wound Culture - Final HEAVY GROWTH NORMAL SKIN YOAN... Complete Imaging Last Impressions Chest X-Ray 12/02/16 0000 Signed Impressions: Service Date/Time: Friday, December 02, 2016 06:10 - CONCLUSION: 1. Slightly improving right basilar density. 2. Chronic appearing interstitial densities. Luis Benites MD Angiography 12/01/16 0000 Signed Impressions: Service Date/Time: November 14:02 - CONCLUSION: 1. Right side up on her hemorrhage with angiography of the right bronchial artery revealing no source of active hemorrhage. Empiric embolization was performed. Santos Crockett Jr., MD Chest CT 11/28/16 0000 Signed Impressions: Service Date/Time: Tuesday, November 29, 2016 05:13 - CONCLUSION: 1. Patchy alveolar disease characteristic of edema or pneumonia. 2. Severe emphysema 3. Gastrojejunostomy tube looped in the stomach Harvey Morejon MD Chest/Thorax CTA 11/26/16 0000 Signed Impressions: Service Date/Time: Saturday, November 26, 2016 20:18 - CONCLUSION: 1. Extensive filling defects within the right central bronchial tree characteristic of endobronchial hemorrhage. 2. Consolidating airspace disease in the right upper lobe and right lower lobe characteristic of hemorrhage and post obstructive lung consolidation. 3. Right bronchial artery is identified extending to the central right bronchial region 4. Advanced COPD. Nasir Amanda MD Abdomen X-Ray 11/19/16 0600 Signed Impressions: Service Date/Time: Saturday, November 19, 2016 02:44 - CONCLUSION: Unchanged bowel gas pattern potentially relating to an ileus. Santos Crockett Jr., MD Transcranial Doppler Study Complete 10/20/16 0600 Signed Impressions: Service Date/Time: October 07:54 - CONCLUSION: Slight interval elevation of flow velocity measurements and ratio on the left Yosvany Polk MD Liver Ultrasound 10/19/16 0000 Signed Impressions: Service Date/Time: Wednesday, October 19, 2016 11:20 - CONCLUSION: 1. Sludge filled gallbladder with thickened wall. 2. Moderate size bilateral pleural effusions and mild upper abdominal ascites. Santos Vazquez MD Cerebral Arteriogram 10/19/16 0000 Signed Impressions: Service Date/Time: Wednesday, October 19, 2016 12:47 - CONCLUSION: Uncomplicated cerebral arteriography with spasmolytic therapy as described in detail above. Yosvany Polk MD Head CT 10/17/16 0000 Signed Impressions: Service Date/Time: Monday, October 17, 2016 15:06 - CONCLUSION: Ventricles are slightly larger without ventriculostomy. Edema in the left hemisphere the brain herniating through the operative site. Remington Woodward MD FACR Infusion Non-thrombolysis 10/14/16 1103 Signed Impressions: Service Date/Time: Friday, October 14, 2016 10:21 - CONCLUSION: 1. Uncomplicated infusion for spasmolysis Harvey Morejon MD Neck CTA 10/07/16 0000 Signed Impressions: Service Date/Time: Friday, October 07, 2016 15:03 - CONCLUSION: 1. Mild carotid bulb atherosclerotic calcification bilaterally. However, no significant stenosis is present in either internal carotid artery. 2. Paranasal sinus mucoperiosteal thickening. 3. Please refer to brain CTA report for description of the intracranial findings. Yosvany Ramirez MD Head CTA 10/07/16 0000 Signed Impressions: Service Date/Time: Friday, October 07, 2016 15:03 - CONCLUSION: 1. 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 2. Large left subdural hematoma measuring 1.3 cm in depth with a significant, 1.6 cm left to right subfalcine shift. Joni Shelton MD Objective Remarks GENERAL: 56-year-old male. Currently on ventilator via tracheostomy HEAD: Status post left craniectomy. Left flap sunken, Incision healing well EYES: 3 mm bilaterally and reactive NECK: trach site is clean dry and intact. Copious amount of bright red blood per ventilator device CARDIOVASCULAR: RRR. S1, S2 no S4. Without murmur RESPIRATORY: TP. Diffuse rhonchi and mobile secretions. bloody secretions are improving. GASTROINTESTINAL: Abdomen soft, non-tender, nondistended. No guarding. MUSCULOSKELETAL: Ischemic changes worst to left index finger tip, right 4th fingertip, and majority of R toes. Demarcating, dry. Right upper extremity 2+ edema. Left upper extremity 1+ edema. NEURO EXAM: Cranial nerves II through XII grossly intact.Right UE weaker than left, follows commands x4. SKIN: Stage IV decubitus ulcer 4 x 2 bilateral sacral. Maculopapular rash on feet bilaterally. Procedures 10/13 Four-vessel cerebral angiography with verapamil treatment of vasospasm A/P Assessment and Plan Neuro/Psych Status post left frontotemporal parietal craniectomy 10/08 for evacuation subdural hematoma/duraplasty Left subdural hematoma - 1.3 cm with 1.6 shift left to right Subarachnoid hemorrhage Alavrado and Rodriguez 5, Carroll grade 4 - left P-comm status post 4 coiling 10/08 Hypoxic-Ischemic Encephalopathy - Nimodipine completed 21 days. Initiated 10/13. - Levetiracetam 500 mg per tube q12h. - 10/13 and 10/14 and 10/17) 9/6 left MCA territory vasospasm, status post successful verapamil treatment by IR with 20 mg verapamil - 10/17 CT brain - less hemisphere edema with herniation through left craniotomy site, now improved. - Dr. Perry/neurosurgery. Plan to replace bone flap okayed by infectious disease. - hold sedation until neuro exam improves. frequent neuro checks. Respiratory: Acute hypoxic Respiratory failure secondary to mucous plugging Possible healthcare associated pneumonia ARDS- resolved Noncardiogenic/neurogenic pulmonary edema- resolved. Chronic respiratory failure requiring tracheostomy Massive Hemoptysis Aspiration pneumonitis -- PRVC 18/500/0.9/ - Ventilator bundle -- Albuterol/ipratropium aerosols every 6 hours with albuterol aerosols every [address] angiogram chest/neck revealed right centrilobular bleeding likely source right bronchial artery. Repeat CT chest 11/29/no visualization of active bleeding. -- Follow-up on sputum culture -- s/p Trach Dr. Sullivan/Dr. Collazo 11/01 #8 Shiley. --Redo trach 11/[address] Crockett 12/01 - embolization of right bronchial artery by IR Cardiovascular: Septic and cardiogenic shock- resolved. LV dysfunction secondary to SAH - persistent, now resolved Elevated troponin- secondary to SAH, unlikely to be ACS. - resolved. Pulmonary hypertension s/p PEA arrest 11/28 after ett dislodgement, hypoxic arrest Continue free water 200mL per tube q6h. Echocardiogram 10/14/16 revealed EF 40-45%. Septal hypokinesis. Moderate MR. Severe pulmonary hypertension with pulmonary artery pressures estimated 61 mmHg Limited Echo 11/06: LVEF 60-65%, Trivial mitral and tricuspid regurgitation, No vegetations noted. Continue diltiazem's 90 mg by mouth every 6 hours and furosemide 20 mg daily currently off vasopressors. Renal: Cerebral Salt Wasting/SIADH-resolved now hypernatremic Strict I/Os. See FEN below. Creatinine currently within normal limits -> resolved. Monitor urine output FEN/GI: Ileus Elevated transaminases Hyperammonemia - Currently on Glucerna 1.5 goal 60 cc an hour. - free water per G tube - ICU electrolyte protocol. - Lansoprazole 30 mg by tube daily for GI prophylaxis - Continue bowel regimen - Continue PEG feeding. s/p PEG 11/12/16 Heme/ID: Septic Shock- resolved. Possible HCAP New Fever, leukocytosis, staph epi bacteremia - limited Echo to evaluate vegetation-neg. ID following - Follow-up on sputum culture, trach site culture - Digital Ischemia with necrosis, conservative management - s/p Diltiazem and milrinone infusions - Digits have demarcated, allow auto amputation. Cardizem PO currently and 90 mg every 6 hours (for digital ischemia, Raynaud's) Continue bacitracin twice a day to affected areas Pertinent cultures 10/15 - blood cultures - 1 out of 4 anaerobic gram-negative cocci possibly Veillonella 10/15 - sputum - beta strep not A, strep species 10/19 cultures NG 10/21/ bottles blood cultures coag negative staph. Culture 11/01. coag neg stah 03/19 bottles 11/16 sputum in trach site cultures negative s/p levofloxacin x 7 days end 11/15/16 Fluconazole discontinued per infectious disease Endocrine: Presumed Adrenal Insufficiency Discontinued fludrocortisone 10/18. Sliding-scale insulin with NovoLog -Accu-Cheks every 4 hours to maintain euglycemia MSK: Stage IV bilateral sacral decubitus ulcers Xeroform/ABD secured with paper tape change daily PT evaluate and treat Ultrasound Doppler venous bilateral upper extremities today. Prophylaxis: GI Prophylaxis - lansoprazole DVT Prophylaxis-- SCDs, d/c heparin subcutaneous hemoptysis Lines: - 10/14 right SC TLC, removed 10/22 - 10/14 right radial art line, removed 10/14 - 10/15 left radial art line, removed 10/16 - 10/22 left groin triple lumen placed, d/c 10/30 - d/c ike. Level II follow-up Cyrus Boland MD Dec 04, 2016 09:19
[2016-12-04] MEDS: LACTOBACILLUS ACIDOPHILUS TAB PO SCH ×3 (09:39→18:12)
[2016-12-04] MEDS: cloNIDine HCL 0.1 MG TAB PO SCH ×2 (09:39→18:12)
[2016-12-04] MEDS: SODIUM CHLORIDE 0.9% FLUSH 10 ML FLUSH IV FLUSH SCH ×3 (09:39→20:12)
[2016-12-04] MEDS: levETIRAcetam 500 MG/5 ML UDC NG SCH ×2 (09:39→20:12)
[2016-12-04] MEDS: LANSOPRAZOLE SOLUTAB 30 MG TAB NG SCH (09:39)
--- NOTE | 2016-12-04 16:45 | RADRPT ---
EXAM DATE/TIME: 12/04/2016 15:37 [facility] COMPARISON: No previous studies available for comparison. INDICATIONS : Bilateral arm edema. MEDICAL HISTORY : Hypertension. Subarachnoid hemorrhage. Respiratory disorder. SURGICAL HISTORY : Left craniotomy. Ventriculostomy catheter. ENCOUNTER: Initial ACUITY: 1 day PAIN SCORE: 3/10 LOCATION: Bilateral arms FINDINGS: On the right side there is occlusive thrombus in the right axillary and cephalic and subclavian vein. Right basilic brachial and radial and ulnar veins are patent. On the left side there is occlusive thrombus in the cephalic vein. Remainder of the left upper chimne y veins are patent. CONCLUSION: 1. Positive for occlusive deep venous thrombosis in the right axillary and subclavian vein. Occlusive superficial thrombus in bilateral cephalic veins. Gurwinder Root MD on December 04, 2016 at 16:39 Board Certified Radiologist. This report was verified electronically.
--- NOTE | 2016-12-04 17:53 | PD.PROCEDR ---
Central Line Procedure REASON FOR PROCEDURE Central venous access PROCEDURE PERFORMED Central line placement: Left IJ CVL CONSENT Informed consent for procedure was obtained. The risks and benefits of the procedure were discussed to include but limited to bleeding, clot formation, infection, and even . ANESTHESIA Local injection of 1% Lidocaine DESCRIPTION OF THE PROCEDURE The patient was placed in supine, mild Trendelenburg position. The area was exposed and cleansed with ChloraPrep, times two. Large sterile drape was used to cover the patient, with the site exposed, under sterile conditions including cap, face mask, sterile gown, and sterile gloves. On single attempt, the introducer needle was inserted with negative pressure in syringe and venous flash was obtained. The guide wire was then advanced without any restriction and the needle was removed. The dilator was used without any complications. Using Seldinger technique the triple-lumen catheter was advanced over the guide wire to a depth of 20 centimeters. The guide wire was removed. All ports were aspirated with dark venous blood return and flushed easily with sterile saline. All ports were capped. Antibiotic disc was placed around central line at puncture site. The central line was secured to the skin with two interrupted 2.0 silk sutures. The area was bandaged with sterile see-through central line bandage. RADIOLOGICAL DATA Ultrasound guidance was used to locate the left internal jugular vein. Doppler/ color flow was used to confirm venous flow. COMPLICATIONS: No apparent complications ESTIMATED BLOOD LOSS: Less than 1 cc. Cyrus Boland MD Dec 04, 2016 17:53
[2016-12-04] MEDS ORDERED: SODIUM CHLORIDE 0.9% FLUSH 10 ML FLUSH IV FLUSH PRN (18:00)
--- NOTE | 2016-12-04 18:24 | RADRPT ---
EXAM DATE/TIME: 12/04/2016 18:55 [facility] COMPARISON: CHEST SINGLE AP, December 02, 2016, 6:10. INDICATIONS : Central line placement. MEDICAL HISTORY : None. SURGICAL HISTORY : None. ENCOUNTER: Subsequent ACUITY: 2 months PAIN SCORE: 0/10 LOCATION: Bilateral chest FINDINGS: A single view of the chest demonstrates tracheostomy in good position. Left central line in superior vena cava. Mild basilar and left perihilar airspace disease. Trace pleural fluid. Heart size normal. Mildly tortuous aorta. CONCLUSION: 1. Placement of left central line tip in superior vena cava. No pneumothorax. Mild basilar airspace d isease. Small right effusion. Gurwinder Root MD on December 04, 2016 at 18:18 Board Certified Radiologist. This report was verified electronically.
[2016-12-04] MEDS: MELATONIN 5 MG TAB PO SCH (20:12)
[2016-12-05] VITALS (18 sets, daily range): BP systolic 128–139; BP diastolic 65–75; PULSE 65–78; RESP 13–25; TEMP 98–99; O2SAT 97–100
[2016-12-05] MEDS: RESP: ALBUTEROL 2.5 MG/IPRATROPIUM 0.5 MG NEB (SCH) NEB ×4 (01:04→20:01)
[2016-12-05] MEDS: cloNIDine HCL 0.1 MG TAB PO SCH ×3 (02:03→18:18)
[2016-12-05] MEDS: METOCLOPRAMIDE HCL 10 MG/2 ML VIAL IV PUSH SCH ×3 (02:03→18:19)
[2016-12-05] MEDS: CHLORHEXIDINE GLUCONATE 2 % 1 PACK (2 CLOTHS) TOP SCH (04:00)
[2016-12-05 04:39] LABS: BASOPHIL # 0.1 TH/MM3 (0-0.2); BASOPHIL % 0.9 % (0.0-2.0); HEMATOCRIT 23.9 % (39.0-51.0); HEMO FLAGS DIFF FINAL; LYMPH % 18.6 % (9.0-44.0); LYMPHOCYTE # 1.6 TH/MM3 (1.0-4.8); MEAN CELL VOLUME 90.9 FL (80.0-100.0); MEAN CORPUSCULAR HEMOGLOBIN 29.7 PG (27.0-34.0); MEAN CORPUSCULAR HGB CONC 32.7 % (32.0-36.0); MONO % 7.9 % (0.0-8.0); NEUT % 72.6 % (16.0-70.0); PLATELET COUNT 236 TH/MM3 (150-450); RED BLOOD COUNT 2.63 MIL/MM3 (4.50-5.90); RED CELL DISTRIBUTION WIDTH 16.4 % (11.6-17.2); WHITE BLOOD COUNT 8.3 TH/MM3 (4.0-11.0)
[2016-12-05 04:55] LABS: BICARBONATE 28.2 MEQ/L (21.0-32.0)
[2016-12-05] MEDS: DILTIAZEM HCL 90 MG TAB PO SCH ×3 (05:34→18:18)
[2016-12-05] MEDS: BENEPROTEIN POWDER 1 PACK G-TUBE SCH ×6 (08:55→18:19)
[2016-12-05] MEDS: ARTIFICIAL TEARS OPTH SOLN 15 ML BTL EACH EYE SCH ×3 (08:55→18:19)
[2016-12-05] MEDS: SODIUM CHLORIDE 0.9% FLUSH 10 ML FLUSH IV FLUSH SCH ×3 (08:56→20:37)
[2016-12-05] MEDS: levETIRAcetam 500 MG/5 ML UDC NG SCH ×2 (08:57→20:37)
[2016-12-05] MEDS: LANSOPRAZOLE SOLUTAB 30 MG TAB NG SCH (08:59)
[2016-12-05] MEDS: LACTOBACILLUS ACIDOPHILUS TAB PO SCH ×3 (09:01→18:18)
[2016-12-05] MEDS: COLLAGENASE OINT 30 GM TUBE TOPICAL SCH (09:02)
[2016-12-05] MEDS: CHLORHEXIDINE 0.12% (ORAL KIT) 15 ML CUP MT SCH ×2 (09:04→20:37)
[2016-12-05] MEDS: BACITRACIN TOP OINT 15 GM TUBE TOPICAL SCH ×2 (09:41→20:37)
[2016-12-05] MEDS: POVIDONE IODINE 10% OINT 30 GM TUBE TOPICAL SCH (09:41)
--- NOTE | 2016-12-05 09:48 | HHI.CCPN ---
Subjective Remarks/Hospital Course 10/07: 56-year-old male presents with intracranial bleed. Patient was transferred from [facility] at [facility]. As per the paramedics and the nurse who assisted the patient said that patient earlier this morning was coming down the stairs when he started feeling some left-sided weakness and numbness. He called 911 and by the time EMS arrived they detected some deficit and called a stroke alert. Patient was taken to [facility]. When patient arrived his mental status started to decline and he was intubated emergently in the ER. A CAT scan of the head showed subarachnoid and subdural bleed. He was taking emergently to an angio suite for coiling of the aneurysm and later on to OR for subdural hematoma evacuation. 10/08: Remains sedated, orally intubated on mechanical ventilation. Arouses off sedation and following commands with both upper extremities earlier. Ventriculostomy in place. ICP 7, CPP mid 80s. 10/09: Remains sedated, orally intubated on mechanical ventilation. Arouses off sedation and follows commands with both upper extremities. Ventriculostomy in place. 10/10: Remains sedated, orally intubated on mechanical ventilation. Arouses off sedation and follows commands and both upper extremities. Ventriculostomy in place. ICP 5. Failed C Pap trial yesterday. 10/11: Extubated on 10/10, tolerating well. Awake and alert. Appears confused, moving all 4 extremities. Ventriculostomy discontinued today by neurosurgery 10/13: Patient has developed severe vasospasm at the left MCA territory on TCD's that was treated with IV route verapamil 10/14: patient extubated overnight. was originally following commands and neuro intact. TCDs this morning with increase LIs over yesterday, particularly Left MCA territory. On my evaluation early this morning, patient was aphasic, not moving the right side of his body, not following commands. SBP 140s at that time. net 2L negative/24h and uop almost 1L/hr at the time. I immediately bolused with 2L NS iv, placed arterial and central lines, started phenylephrine , increased SBP to goal 200 - 220 mmHg. called interventional neuroradiology and accompanied patient down personally to IR for IA verapamil again. I remained with the patient managing his hemodynamics down in IR and providing anxiolysis IV. I accompanied patient back up to [facility] where patient again was neuro intact and following commands. Sodium downtrending to 135 and urine studies and serum osms suggestive of urine sodium losses and high uop. added Florinef to mitigate sodium losses, and increased mivf to 500cc/hr to maintain euvolemia. later in the day patient decompensated requiring intubation for hyoxemia, cxr suggestive of pulmonary edema. 2d echo with evidence of EF 40%, septal hypokinesis, moderate MR. On levo, vaso, phenylephrine. difficult to get to goal SBP 200 mmHg, likely due to myocardial dysfunction. decreased goal to 180 - 200 mmHg to balance cardiac vs. neurologic goals. 10/15 Patient was discussed with Dr. Sullivan at shift change. Isuprel was initiated in effort to improve cardiac output as dobutamine not available and concerned with use of milrinone given long half life. Systolic blood pressure was relatively stable with perhaps some modest improvement from 170s to 180s for several hours after initiation. Notified when patient became abruptly hypotensive despite vasopressin, levophed 20 mcg/min, Greyson-Synephrine 300 mcg/m. He was also hypoxemic with sats in 80s despite PCV with PEEP 8 and FiO2 100%, respiratory rate in the 30s. He had decreased breath sounds bilaterally and was concerned for air trapping so removed from mechanical ventilation and bagged without improvement. Placed patient back on mechanical ventilation and provide recruitment maneuvers and increased PEEP to 12 which resulted in improvement of sats to 88% to 92%. Ordered Flolan. Discontinued isuprel and initiated epinephrine. R radial art line would not draw blood . Performed u/s guided femoral artery stick to confirm hypoxemia on ABG given poor wave form on pulse ox and PaO2 was 58. Placed new L radial art line and this resulted in ~ 30 point increase in SBP relative to prior line but patient ultimately on vasopressin, levophed 30 micrograms per minute, Greyson-Synephrine 300 micrograms per minute, epinephrine 12 mcg/min and unable to maintain target pressure (SBP in 150s). Given calcium chloride. patient with shaking movements all extremities, pupils 2mm and sluggish, no eye deviation. Rigors seemed most likely but unable to emergently rule out seizures so loaded with fosphenytoin to avoid secondary injury from seizure activity. WBC increasing and concern for HCAP so pancultured and placed on cefepime, vancomycin, azithromycin. Hydrocortisone 100 mg IV every 8 hours initiated due to concern for septic shock in a patient who has been refractory to all other above measures. Patient is to hemodynamically unstable and hypoxic for transport for neurologic imaging. Urine output has declined to 180-200 ML's per hour. Back off maintenance IV fluids to 200 ML's per hour. Bedside echo demonstrates decreased LV function with normal RV contractility and collapsible IVC suggesting ongoing maintenance fluid administration is appropriate. 10/15 additional visit: continued to deteriorate throughout the day. Seen multiple times. hypoxic on 100% fio2, flolan. required nimbex drip to maintain. repeat bedside critical care ultrasound still demonstrates severe LV dysfunction , decompressed RV, IVC more dilated than previous echo overnight, however still with respiratory variation. femoral arterial line placed with better waveform and higher pressure (likely SVR too high to allow accurate measurement of radial pressure). Pulse contour analysis without stroke volume variation, CI 3.6. SV 52mL. trialed additional albumin without improvement in hemodynamics. uop slower than before, but still significant salt wasting in the urine- sodium dropped to 125 from 132 despite already on 3% nacl infusion and aggressive sodium replacements. forced to give 23% nacl and salt tabs. declining clinically despite maximal therapy. 10/16: continues to be maximally critically ill. LV dysfunction persists. starting to get volume overloaded, but given concern for ongoing cerebral vasospasm, unable to actively diurese patient. sodium wasting persists, but uop downtrending slightly. very hypokalemic today, likely due to steroids. remains intubated, sedated, paralyzed, on flolan. CXR today appears worse with worsening airspace disease. Lactate remains slightly elevated, confirming persistent shock. 10/17: Lung infiltrates dense bilaterally, reflected in shunting and problems with oxygenation. Developed vasospasm on TCDs and required angiogram and intra- arterial verapamil again today. 10/18: SBP 160 - 170 range. FiO2 0.55. BNP > 5000. Not tolerating attempts at maintaining higher BP due to worsening heart failure. Several episodes of vasospasm. Watch daily TCDs closely. Sputum no growth. 10/19: Tmax 99.8. Currently 99. Remains on 4 vasopressors and epoprostenol 10/20: Yesterday. Returned IR for intra-arterial calcium channel jose infusion for vasospasm. Transcranial Dopplers today Still pending. Remains on significant vasopressor support. 10/21: Good response to diuresis, check BNP. TCDs pending. Heart failure remains a major problem. 10/22: CVP 21 - 22, finger tips blue, digits pale white despite high dose milrinone dilation. Greyson and vaso much reduced. Will try diltiazem gtt for digital ischemia. Urine remains > 200/hr and proximal limbs are well perfused. This digital ischemia appears to be a local phenomenon ala Raynaud's. New subcutaneous emphysema right anterior chest wall. 10/23: Old CVL removed. Fingertips remain marginal, some necrotic despite diltiazem and milrinone treatment for digital ischemia. Cardiac output > 7 liters/min and urine copious, confirming good perfusion pressure and flow. This continues to be a local phenomenon of the digits ala Raynaud's. We are trying to wean vasopressors off but are required to maintaining a cerebral perfusion pressure suitable for the treatment of aneurysmal subarachnoid bleed. Frankly, the importance of brain function eclipses fingertips. 10/24: Afebrile. Well perfused except for index finger left hand, few tips fingers right. Arms and hands warmer with resolving circumferential edema. Diltiazem and milrinone gtt continue. Greyson to 10 mics/min. 10/25: Digits are warm and well perfused except left index and right 4th fingertips; demarcated and not viable. Dry. Diltiazem and milrinone infusions continue to help reverse digital ischemia. 10/26: Forced diuresis continues and BP remains nicely elevated. Hands and digits warm aside from left index and right 4th fingertips which have demarcated. 10/27: Good response to diuretics. Perfusion pressure and documented flow excellent. Continue to wean vent. 10/28: Start SBTs. Fluid balance back toward normal. 10/29: Tolerating SBTs. Lowering sedation. Edema resolving. 10/30: Tolerating tube feeds, will taper off TPN and remove central line. Continue diuretics. 10/31: net -3L over 24h. mental status at baseline. tolerating CPAP, but does not have the mental status to protect airway. will likely need trach/peg. placement will be a problem due to lack of funding. 11/01: no changes or improvements. discussed with yesterday and she "does not want any more setbacks" and would prefer trach versus trial of extubation. I agree with her assessment. plan for trach today. placement is still a significant problem. net -2L/24h. 11/02: wbc uptrending, febrile. antonio cultured, started empiric abx today. failed SBT overnight and placed back on rate. 11/03: Tolerating CPAP today, following commands. Low-grade fever cultures pending. WBC count normal today 11/04: Remains on TPs since yesterday. Neuro exam remains stable. Follows commands weakly. Na 152 11/05: Remains off vent for 48 hours now. Sitting up in stretcher chair today. Na improved to 149. remains weak but improving 11/06: Continues to tolerate TPs well. Neuro exam unchanged. Sodium 148 today. Continues to spike intermittent fever Tmax 102.7. 11/07: Continued fevers, no leukocytosis. 11/08: Stable for replacement of bone flap. 11/09: Getting a bit excessively diuresed, will decrease lasix and convert to PO. Fingertips and toes demarcating as expected. No immediate action required except for continued diltiazem therapy. Clearly a Raynaud's type digital ischemia as peripheral perfusion and urine output indicated excellent peripheral perfusion. 11/10: Tracks with eyes today, nods to questions. Failed swallow again. 11/11: Plan for PEG, GI consulted. Bone flap replacement on hold due to blood cultures and fever. 11/12: May get PEG today, Bone flap to be replaced coming week per Dr. Perry. Afebrile no white count 11/13: Neuro exam unchanged. Na was 150 yesterday, repeat CMP pending. Left flap remains sunken 11/14: emesis overnight with ? aspiration event. no increased O2 requirement, but fever to 102.5 today. recultured. no complaints from patient. 11/15: No changes. still low suspicion for infection. Awaiting ID clearance for bone flap replacement. also awaiting placement 11/16: Placed on full ventilator support overnight for acute hypoxemic respiratory failure due to mucous plugging. Mucomyst added. Not on any sedation. Chest x-ray back to baseline-no need a bronchoscopy at this time, but will do if there is recurrent plugging. Will check sputum culture, and trach site culture 11/17: Breathing comfortably on the vent, on CPAP now. Off all sedation. We'll attempt T piece yesterday. Sodium normal 11/18: Currently tolerating TP. Patient had a few episodes of nausea vomiting. KUB shows ileus. Overnight was started on Reglan IV and when necessary Zofran. We'll keep nothing by mouth until ileus resolved. 11/19: Back on vent rate due to poor spontaneous effort. Hgb down 2 gms - looks like dilution; follow closely. VS without change. Ileus has resolved. 11/20: ABIs normal with normal pressure. Inflow satisfactory to all limbs. GI tract working well. 11/21: Tmax 99.1. Positive BM from fecal containing device. Tolerating t piece 24 hours. Tube feeds are at goal. Okay for OR from ID standpoint 11/22 currently resting in bed in no acute distress. On TP since 48 hours. Tube feeds at goal. 11/23: Resting in bed on T piece and 72 hours. Tube feeding at goals. Cleared from ID for plastics. 11/26: rapid response for massive hemoptysis. Patient rapidly reintubated through mouth and trach tube removed at same time. No bleeding from the trach stoma or above. All blood is coming from below. Bronchoscopy demonstrated large clots in both left and right mainstems. Right side clot 2 x 2 x 3 cm. Finally suctioned clear enough to inspect - no bleeding source found. Will keep on vent with PEEP 12 and heavy sedation. Plts 380,000, INR 1.0 11/27: CTA reviewed. He appears to bee bleeding from the anterior segment of the right upper lobe, which is displaced inferiorly by apical bullous disease. 11/28: remains sedated and paralyzed. still requiring active transfusions. but no longer hypoxic and bloody secretions are much less. 11/29: overnight ett became dislodged leading to hypoxia, bradycardia, PEA arrest. ~10min CPR with ROSC and reintubation. this morning, off sedation, opens eyes spontaneously but no other movements. repeat CTA chest without evidence of extravasation from area of massive hemoptysis. 11/30: Resting in bed in no acute distress. Arousable and follows commands. Tolerating tube feed. Afebrile. 12/01: Afebrile. Since 6 AM, every hour with copious amounts of bright red blood per tracheostomy/TPs. IR for possible right bronchial artery embolization today. Noted likely culprit on CTA 11/26. Hasn't had active bleeding since then. 10/20: Afebrile. Status post embolization 2 right bronchial artery yesterday. Currently old blood from tracheostomy site. Saturations 100% on 40% FiO2. Tolerating tube feeding. 12/03: Resting in bed on ventilator via tracheostomy. No new issues overnight. Hemodynamically stable. 100% saturations 12/04: Afebrile. Noted increasing edema right greater than left upper extremity. Minimal bloody secretions from tracheostomy. Currently resting in bed in no acute distress. Subjective 12/05: Afebrile. Noted to have DVT in right upper extremity including inclusive of subclavian, axillary vein. Bilateral superficial cephalic veins bilaterally. Peripheral IVs removed. Placed left IJ CVL. Objective Vital Signs Date Time Temp Pulse Resp B/P (MAP) Pulse Ox O2 Delivery O2 Flow Rate FiO2 12/05/16 08:33 100 55 12/05/16 06:00 66 12/05/16 04:00 98.0 21 134/69 (90) Intake and Output 12/05/16 12/05/16 12/06/16 08:00 16:00 00:00 Intake Total 885 ml Output Total 1100 ml Balance -215 ml Result Diagram: 12/05/16 0420 12/05/16 0420 Other Results Microbiology Date/Time Source Procedure Growth Status 11/15/16 05:20 Blood Peripheral Aerobic Blood Culture - Final NO GROWTH IN 5 DAYS Complete 11/15/16 05:20 Blood Peripheral Anaerobic Blood Culture - Final NO GROWTH IN 5 DAYS Complete 11/16/16 06:00 Sputum Endotracheal Gram Stain - Final Complete 11/16/16 06:00 Sputum Endotracheal Sputum Culture - Final HEAVY GROWTH NORMAL RESPIRATORY YOAN Complete 11/06/16 13:00 Urine Random Urine Urine Culture - Final <10,000 CFU/ML GRAM POSITIVE YOAN Complete 11/16/16 11:13 Wound Neck Gram Stain - Final Complete 11/16/16 11:13 Wound Neck Wound Culture - Final HEAVY GROWTH NORMAL SKIN YOAN... Complete Imaging Last Impressions Chest X-Ray 12/04/16 0213 Signed Impressions: Service Date/Time: Sunday, December 04, 2016 18:55 - CONCLUSION: 1. Placement of left central line tip in superior vena cava. No pneumothorax. Mild basilar airspace disease. Small right effusion. Gurwinder Root MD Upper Extremity Ultrasound 12/04/16 0000 Signed Impressions: Service Date/Time: Sunday, December 04, 2016 15:37 - CONCLUSION: 1. Positive for occlusive deep venous thrombosis in the right axillary and subclavian vein. Occlusive superficial thrombus in bilateral cephalic veins. Gurwinder Root MD Angiography 12/01/16 Signed Impressions: Service Date/Time: November 14:02 - CONCLUSION: 1. Right side up on her hemorrhage with angiography of the right bronchial artery revealing no source of active hemorrhage. Empiric embolization was performed. Santos Crockett Jr., MD Chest CT 11/28/16 Signed Impressions: Service Date/Time: Tuesday, November 29, 2016 05:13 - CONCLUSION: 1. Patchy alveolar disease characteristic of edema or pneumonia. 2. Severe emphysema 3. Gastrojejunostomy tube looped in the stomach Harvey Morejon MD Chest/Thorax CTA 11/26/16 Signed Impressions: Service Date/Time: Saturday, November 26, 2016 20:18 - CONCLUSION: 1. Extensive filling defects within the right central bronchial tree characteristic of endobronchial hemorrhage. 2. Consolidating airspace disease in the right upper lobe and right lower lobe characteristic of hemorrhage and post obstructive lung consolidation. 3. Right bronchial artery is identified extending to the central right bronchial region 4. Advanced COPD. Nasir Amanda MD Abdomen X-Ray 11/19/16599 Signed Impressions: Service Date/Time: Saturday, November 19, 2016 02:44 - CONCLUSION: Unchanged bowel gas pattern potentially relating to an ileus. Santos Crockett Jr., MD Transcranial Doppler Study Complete 10/20/16599 Signed Impressions: Service Date/Time: October 07:54 - CONCLUSION: Slight interval elevation of flow velocity measurements and ratio on the left Yosvany Polk MD Liver Ultrasound 10/19/16 Signed Impressions: Service Date/Time: Wednesday, October 19, 2016 11:20 - CONCLUSION: 1. Sludge filled gallbladder with thickened wall. 2. Moderate size bilateral pleural effusions and mild upper abdominal ascites. Santos Vazquez MD Cerebral Arteriogram 10/19/16 Signed Impressions: Service Date/Time: Wednesday, October 19, 2016 12:47 - CONCLUSION: Uncomplicated cerebral arteriography with spasmolytic therapy as described in detail above. Yosvany Polk MD Head CT 9/4/17 0000 Signed Impressions: Service Date/Time: Monday, October 17, 2016 15:06 - CONCLUSION: Ventricles are slightly larger without ventriculostomy. Edema in the left hemisphere the brain herniating through the operative site. Remington Woodward MD FACR Infusion Non-thrombolysis 10/14/16 1103 Signed Impressions: Service Date/Time: Friday, October 14, 2016 10:21 - CONCLUSION: 1. Uncomplicated infusion for spasmolysis Harvey Morejon MD Neck CTA 10/07/16 0000 Signed Impressions: Service Date/Time: Friday, October 07, 2016 15:03 - CONCLUSION: 1. Mild carotid bulb atherosclerotic calcification bilaterally. However, no significant stenosis is present in either internal carotid artery. 2. Paranasal sinus mucoperiosteal thickening. 3. Please refer to brain CTA report for description of the intracranial findings. Yosvany Ramirez MD Head CTA 10/07/16 0000 Signed Impressions: Service Date/Time: Friday, October 07, 2016 15:03 - CONCLUSION: 1. 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 2. Large left subdural hematoma measuring 1.3 cm in depth with a significant, 1.6 cm left to right subfalcine shift. Joni Shelton MD Objective Remarks GENERAL: 56-year-old male. Currently on ventilator via tracheostomy HEAD: Status post left craniectomy. Left flap sunken, Incision healing well EYES: 3 mm bilaterally and reactive NECK: trach site is clean dry and intact. Left IJ CVL clean dry and intact CARDIOVASCULAR: RRR. S1, S2 no S4. Without murmur RESPIRATORY: TP. Diffuse rhonchi and mobile secretions. bloody secretions are improving. GASTROINTESTINAL: Abdomen soft, non-tender, nondistended. No guarding. MUSCULOSKELETAL: Ischemic changes worst to left index finger tip, right 4th fingertip, and majority of R toes. Demarcating, dry. Right upper extremity 2+ edema. Left upper extremity 1+ edema. NEURO EXAM: Cranial nerves II through XII grossly intact.Right UE weaker than left, follows commands x4. SKIN: Stage IV decubitus ulcer 4 x 2 bilateral sacral. Maculopapular rash on feet bilaterally. Procedures 10/13 Four-vessel cerebral angiography with verapamil treatment of vasospasm Vascular Central Line Catheter: Yes Assessment to: Continue Date of Insertion: Dec 04, 2016 Line: Central Venous Catheter Side: Left Location: Internal, Jugular A/P Assessment and Plan Neuro/Psych Status post left frontotemporal parietal craniectomy 10/08 for evacuation subdural hematoma/duraplasty Left subdural hematoma - 1.3 cm with 1.6 shift left to right Subarachnoid hemorrhage Alvarado and Rodriguez 5, Carroll grade 4 - left P-comm status post 4 coiling 10/08 Hypoxic-Ischemic Encephalopathy - Nimodipine completed 21 days. Initiated 10/13. - Levetiracetam 500 mg per tube q12h. - 10/13 and 10/14 and 10/17) 10/19 left MCA territory vasospasm, status post successful verapamil treatment by IR with 20 mg verapamil - 10/17 CT brain - less hemisphere edema with herniation through left craniotomy site, now improved. - Dr. Perry/neurosurgery. Plan to replace bone flap okayed by infectious disease. - hold sedation until neuro exam improves. frequent neuro checks. Respiratory: Acute hypoxic Respiratory failure secondary to mucous plugging Possible healthcare associated pneumonia ARDS- resolved Noncardiogenic/neurogenic pulmonary edema- resolved. Chronic respiratory failure requiring tracheostomy Massive Hemoptysis Aspiration pneumonitis -- PRVC 18/500/02/17/39 - Ventilator bundle -- Albuterol/ipratropium aerosols every 6 hours with albuterol aerosols every [address] angiogram chest/neck revealed right centrilobular bleeding likely source right bronchial artery. Repeat CT chest 11/29/no visualization of active bleeding. -- Follow-up on sputum culture -- s/p Trach Dr. Sullivan/Dr. Collazo 11/01 #8 [facility]. --Redo trach 11/[address] Crockett 12/01 - embolization of right bronchial artery by IR Start CPAP trials today Cardiovascular: Septic and cardiogenic shock- resolved. LV dysfunction secondary to SAH - persistent, now resolved Elevated troponin- secondary to SAH, unlikely to be ACS. - resolved. Pulmonary hypertension s/p PEA arrest 11/28 after ett dislodgement, hypoxic arrest Continue free water 200mL per tube q6h. Echocardiogram 10/14/16 revealed EF 40-45%. Septal hypokinesis. Moderate MR. Severe pulmonary hypertension with pulmonary artery pressures estimated 61 mmHg Limited Echo 11/06: LVEF 60-65%, Trivial mitral and tricuspid regurgitation, No vegetations noted. Continue diltiazem's 90 mg by mouth every 6 hours and furosemide 20 mg daily currently off vasopressors. Renal: Cerebral Salt Wasting/SIADH-resolved now hypernatremic Strict I/Os. See FEN below. Creatinine currently within normal limits -> resolved. Monitor urine output FEN/GI: Ileus Elevated transaminases Hyperammonemia - Currently on Glucerna 1.5 goal 60 cc an hour. - free water per G tube - ICU electrolyte protocol. - Lansoprazole 30 mg by tube daily for GI prophylaxis - Continue bowel regimen - Continue PEG feeding. s/p PEG 11/12/16 Heme/ID: Septic Shock- resolved. Possible HCAP New Fever, leukocytosis, staph epi bacteremia Right occlusive subclavian, axillary and bilateral superficial cephalic thrombus - limited Echo to evaluate vegetation-neg. ID following - Follow-up on sputum culture, trach site culture - Digital Ischemia with necrosis, conservative management - s/p Diltiazem and milrinone infusions - Digits have demarcated, allow auto amputation. Cardizem PO currently and 90 mg every 6 hours (for digital ischemia, Raynaud's) Continue bacitracin twice a day to affected areas Peripheral IVs discontinued. Place central line for IV access. We'll need to be started on systemic anticoagulation at some point however with recent embolization today is probably not the best day to attempt this. Still with some hemoptysis through tracheostomy tube. Pertinent cultures 10/15 - blood cultures - 1 out of 4 anaerobic gram-negative cocci possibly Veillonella 10/15 - sputum - beta strep not A, strep species 10/19 cultures NG 10/21 1/4 bottles blood cultures coag negative staph. Culture 11/01. coag neg stah / bottles 11/16 sputum in trach site cultures negative s/p levofloxacin x 7 days end 11/15/16 Fluconazole discontinued per infectious disease Endocrine: Presumed Adrenal Insufficiency Discontinued fludrocortisone 10/18. Sliding-scale insulin with NovoLog -Accu-Cheks every 4 hours to maintain euglycemia MSK: Stage IV bilateral sacral decubitus ulcers Xeroform/ABD secured with paper tape change daily PT evaluate and treat Ultrasound Doppler venous bilateral upper extremities today. Prophylaxis: GI Prophylaxis - lansoprazole DVT Prophylaxis-- SCDs, d/c heparin subcutaneous hemoptysis Lines: - 10/14 right SC TLC, removed 10/22 - 10/14 right radial art line, removed 10/14 - 10/15 left radial art line, removed 10/16 - 10/22 left groin triple lumen placed, d/c 10/30 - d/c ike. Level II follow-up Cyrus Boland MD Dec 05, 2016 09:48
--- NOTE | 2016-12-05 14:41 | HHI.PR ---
Subjective Remarks ON THE VENTILATOR , NOW BIPAP TRACHEOSTOMY REDONE ALERT NO DISTRESS Objective Vital Signs Date Time Temp Pulse Resp B/P (MAP) Pulse Ox O2 Delivery O2 Flow Rate FiO2 12/05/16 12:00 40 12/05/16 12:00 77 12/05/16 12:00 98.4 77 21 128/69 (88) 98 12/05/16 11:33 40 12/05/16 11:31 99 40 12/05/16 11:30 40 12/05/16 10:00 66 12/05/16 09:00 50 12/05/16 08:34 55 12/05/16 08:33 100 55 12/05/16 08:00 68 12/05/16 08:00 65 12/05/16 08:00 98.6 68 19 134/68 (90) 99 12/05/16 06:00 66 12/05/16 04:00 74 12/05/16 04:00 98.0 70 21 134/69 (90) 100 12/05/16 04:00 65 12/05/16 03:59 100 65 12/05/16 02:00 66 12/05/16 01:05 97 70 12/05/16 00:00 70 12/05/16 00:00 98.0 70 25 137/75 (95) 100 12/05/16 00:00 80 12/04/16 22:00 68 12/04/16 20:24 100 80 12/04/16 20:00 99.1 73 21 141/76 (97) 100 12/04/16 20:00 100 12/04/16 20:00 73 12/04/16 18:00 73 12/04/16 16:13 95 30 12/04/16 16:00 40 12/04/16 16:00 72 12/04/16 16:00 98.8 72 21 146/76 (99) 100 I/O 12/04/16 12/04/16 12/04/16 12/05/16 12/05/16 12/05/16 06:59 14:59 22:59 06:59 14:59 22:59 Intake Total 603 ml 852 ml 885 ml Output Total 900 ml 500 ml 1100 ml Balance -297 ml 352 ml -215 ml Tube Feeding 603 ml 672 ml 645 ml Other 180 ml 240 ml Output Urine Total 900 ml 400 ml 1000 ml Stool Total 100 ml 100 ml # Voids 2 Result Diagram: 12/05/1641912/05/16419 Objective Remarks GENERAL: SKIN: Warm and dry. HEAD: Atraumatic. Normocephalic. EYES: Pupils equal and round. No scleral icterus. No injection or drainage. ENT: No nasal bleeding or discharge. Mucous membranes pink and moist. NECK: Trachea midline. No JVD. CARDIOVASCULAR: Regular rate and rhythm. RESPIRATORY: No accessory muscle use. Clear to auscultation. Breath sounds equal bilaterally. TRACHEOSTOMY IN PLACE GASTROINTESTINAL: Abdomen soft, non-tender, nondistended. Hepatic and splenic margins not palpable. MUSCULOSKELETAL: Extremities without clubbing, cyanosis, or edema. No obvious deformities. NEUROLOGICAL: Awake and alert. No obvious cranial nerve deficits. Motor grossly within normal limits. Five out of 5 muscle strength in the arms and legs. Normal speech. PSYCHIATRIC: Appropriate mood and affect; insight and judgment normal. Assessment and Plan Assessment and Plan RESP FAILURE, ON VENT SUPPORT S/P IC BLEED CXRAY 12/04 STABLE NO ACTE ABNORMALITY PLAN WEAN TOLERATED ANTIBX PER ID PULMONARY TOILET Katie Wilson MD Dec 05, 2016 14:41
[2016-12-05] MEDS: MELATONIN 5 MG TAB PO SCH (20:37)
[2016-12-06] VITALS (19 sets, daily range): BP systolic 107–134; BP diastolic 55–69; PULSE 65–81; RESP 12–18; TEMP 98.5–100; O2SAT 93–100
[2016-12-06] MEDS: DILTIAZEM HCL 90 MG TAB PO SCH ×5 (00:25→23:41)
[2016-12-06] MEDS: METOCLOPRAMIDE HCL 10 MG/2 ML VIAL IV PUSH SCH ×3 (01:22→18:05)
[2016-12-06] MEDS: cloNIDine HCL 0.1 MG TAB PO SCH ×3 (01:22→18:05)
[2016-12-06] MEDS: RESP: ALBUTEROL 2.5 MG/IPRATROPIUM 0.5 MG NEB (SCH) NEB ×4 (03:14→21:37)
[2016-12-06] MEDS: CHLORHEXIDINE GLUCONATE 2 % 1 PACK (2 CLOTHS) TOP SCH (04:00)
[2016-12-06 05:29] LABS: AUTOMATED NEUTROPHIL # 6.1 TH/MM3 (1.8-7.7); BASOPHIL # 0.1 TH/MM3 (0-0.2); BASOPHIL % 0.8 % (0.0-2.0); HEMATOCRIT 23.7 % (39.0-51.0); HEMO FLAGS DIFF FINAL; LYMPH % 17.7 % (9.0-44.0); LYMPHOCYTE # 1.5 TH/MM3 (1.0-4.8); MEAN CELL VOLUME 90.3 FL (80.0-100.0); MEAN CORPUSCULAR HEMOGLOBIN 30.4 PG (27.0-34.0); MEAN CORPUSCULAR HGB CONC 33.7 % (32.0-36.0); MONO % 7.5 % (0.0-8.0); PLATELET COUNT 216 TH/MM3 (150-450); RED BLOOD COUNT 2.63 MIL/MM3 (4.50-5.90); RED CELL DISTRIBUTION WIDTH 16.1 % (11.6-17.2); WHITE BLOOD COUNT 8.2 TH/MM3 (4.0-11.0)
[2016-12-06 05:58] LABS: BICARBONATE 27.2 MEQ/L (21.0-32.0); MAGNESIUM 1.8 MG/DL (1.5-2.5); POTASSIUM 4.2 MEQ/L (3.5-5.1)
--- NOTE | 2016-12-06 09:01 | HHI.PR ---
Subjective Remarks ON THE VENTILATOR , NOW BIPAP TRACHEOSTOMY REDONE ALERT NO DISTRESS Objective Vital Signs Date Time Temp Pulse Resp B/P (MAP) Pulse Ox O2 Delivery O2 Flow Rate FiO2 12/06/16 06:00 72 12/06/16 04:14 97 40 12/06/16 04:00 67 12/06/16 04:00 98.7 67 18 120/60 (80) 97 12/06/16 04:00 40 12/06/16 02:00 81 12/06/16 01:14 100 40 12/06/16 00:00 70 12/06/16 00:00 99.5 70 18 134/69 (90) 100 12/06/16 00:00 40 12/05/16 22:00 65 12/05/16 20:01 99 40 12/05/16 20:00 99.0 68 13 132/65 (87) 100 12/05/16 20:00 67 12/05/16 20:00 40 12/05/16 18:00 78 12/05/16 16:38 100 40 12/05/16 16:00 75 12/05/16 16:00 98.6 75 14 139/72 (94) 100 12/05/16 16:00 40 12/05/16 14:00 73 12/05/16 12:00 40 12/05/16 12:00 77 12/05/16 12:00 98.4 77 21 128/69 (88) 98 12/05/16 11:33 40 12/05/16 11:31 99 40 12/05/16 11:30 40 12/05/16 10:00 66 12/05/16 09:00 50 I/O 12/05/16 12/05/16 12/05/16 12/06/16 12/06/16 12/06/16 07:00 15:00 23:00 07:00 15:00 23:00 Intake Total 885 ml 1058 ml 889 ml Output Total 1100 ml 2100 ml 800 ml Balance -215 ml -1042 ml 89 ml Tube Feeding 645 ml 698 ml 649 ml Other 240 ml 360 ml 240 ml Output Urine Total 1000 ml 1500 ml 700 ml Stool Total 100 ml 600 ml 100 ml Result Diagram: 12/06/1650912/06/1610 Objective Remarks GENERAL: SKIN: Warm and dry. HEAD: Atraumatic. Normocephalic. EYES: Pupils equal and round. No scleral icterus. No injection or drainage. ENT: No nasal bleeding or discharge. Mucous membranes pink and moist. NECK: Trachea midline. No JVD. CARDIOVASCULAR: Regular rate and rhythm. RESPIRATORY: No accessory muscle use. Clear to auscultation. Breath sounds equal bilaterally. TRACHEOSTOMY IN PLACE GASTROINTESTINAL: Abdomen soft, non-tender, nondistended. Hepatic and splenic margins not palpable. MUSCULOSKELETAL: Extremities without clubbing, cyanosis, or edema. No obvious deformities. NEUROLOGICAL: Awake and alert. No obvious cranial nerve deficits. Motor grossly within normal limits. Five out of 5 muscle strength in the arms and legs. Normal speech. PSYCHIATRIC: Appropriate mood and affect; insight and judgment normal. Assessment and Plan Assessment and Plan RESP FAILURE, ON VENT SUPPORT S/P IC BLEED CXRAY 12/04 STABLE NO ACUTE ABNORMALITY PLAN WEAN TOLERATED ANTIBX PER ID PULMONARY TOILET Katie Wilson MD Dec 06, 2016 09:01
[2016-12-06] MEDS: ARTIFICIAL TEARS OPTH SOLN 15 ML BTL EACH EYE SCH ×3 (10:04→18:03)
[2016-12-06] MEDS: BENEPROTEIN POWDER 1 PACK G-TUBE SCH ×6 (10:04→18:03)
[2016-12-06] MEDS: SODIUM CHLORIDE 0.9% FLUSH 10 ML FLUSH IV FLUSH SCH ×3 (10:04→21:00)
[2016-12-06] MEDS: CHLORHEXIDINE 0.12% (ORAL KIT) 15 ML CUP MT SCH ×2 (10:04→21:08)
[2016-12-06] MEDS: POVIDONE IODINE 10% OINT 30 GM TUBE TOPICAL SCH (10:05)
[2016-12-06] MEDS: COLLAGENASE OINT 30 GM TUBE TOPICAL SCH (10:05)
[2016-12-06] MEDS: BACITRACIN TOP OINT 15 GM TUBE TOPICAL SCH ×2 (10:05→21:00)
[2016-12-06] MEDS: LACTOBACILLUS ACIDOPHILUS TAB PO SCH ×3 (10:06→18:05)
[2016-12-06] MEDS: levETIRAcetam 500 MG/5 ML UDC NG SCH ×2 (10:06→21:09)
[2016-12-06] MEDS: LANSOPRAZOLE SOLUTAB 30 MG TAB NG SCH (10:07)
[2016-12-06] MEDS: ACETAMINOPHEN 325 MG TAB PO PRN (13:48)
[2016-12-06] MEDS: MELATONIN 5 MG TAB PO SCH (21:09)
[2016-12-07] VITALS (16 sets, daily range): BP systolic 111–130; BP diastolic 58–71; PULSE 68–77; RESP 15–27; TEMP 98.2–99.2; O2SAT 100
[2016-12-07] MEDS: METOCLOPRAMIDE HCL 10 MG/2 ML VIAL IV PUSH SCH ×3 (02:34→18:08)
[2016-12-07] MEDS: cloNIDine HCL 0.1 MG TAB PO SCH ×3 (02:34→18:08)
[2016-12-07] MEDS: RESP: ALBUTEROL 2.5 MG/IPRATROPIUM 0.5 MG NEB (SCH) NEB ×3 (03:15→20:53)
[2016-12-07] MEDS: CHLORHEXIDINE GLUCONATE 2 % 1 PACK (2 CLOTHS) TOP SCH (03:44)
[2016-12-07] MEDS: DILTIAZEM HCL 90 MG TAB PO SCH ×3 (07:02→18:08)
[2016-12-07] MEDS: CHLORHEXIDINE 0.12% (ORAL KIT) 15 ML CUP MT SCH ×2 (08:00→21:02)
[2016-12-07] MEDS: LACTOBACILLUS ACIDOPHILUS TAB PO SCH ×3 (08:26→18:00)
[2016-12-07] MEDS: BENEPROTEIN POWDER 1 PACK G-TUBE SCH ×6 (08:26→18:00)
[2016-12-07] MEDS: SODIUM CHLORIDE 0.9% FLUSH 10 ML FLUSH IV FLUSH SCH ×3 (08:26→21:00)
[2016-12-07] MEDS: LANSOPRAZOLE SOLUTAB 30 MG TAB NG SCH (08:26)
[2016-12-07] MEDS: levETIRAcetam 500 MG/5 ML UDC NG SCH ×2 (08:26→21:00)
[2016-12-07] MEDS: ARTIFICIAL TEARS OPTH SOLN 15 ML BTL EACH EYE SCH ×3 (08:27→18:00)
[2016-12-07] MEDS: COLLAGENASE OINT 30 GM TUBE TOPICAL SCH (08:27)
[2016-12-07] MEDS: POVIDONE IODINE 10% OINT 30 GM TUBE TOPICAL SCH (08:27)
[2016-12-07] MEDS: BACITRACIN TOP OINT 15 GM TUBE TOPICAL SCH ×2 (08:27→21:02)
--- NOTE | 2016-12-07 08:45 | HHI.PR ---
Subjective Remarks ON THE VENTILATOR , NOW BIPAP TRACHEOSTOMY REDONE ALERT NO DISTRESS Objective Vital Signs Date Time Temp Pulse Resp B/P (MAP) Pulse Ox O2 Delivery O2 Flow Rate FiO2 12/07/16 08:37 100 40 12/07/16 08:37 40 12/07/16 08:00 98.8 72 27 118/60 (79) 100 12/07/16 08:00 40 12/07/16 08:00 72 12/07/16 06:00 69 12/07/16 05:30 100 40 12/07/16 04:00 98.2 68 17 130/63 (85) 100 12/07/16 04:00 40 12/07/16 04:00 68 12/07/16 02:00 70 12/07/16 01:23 100 40 12/07/16 00:00 98.5 68 15 125/71 (89) 100 12/07/16 00:00 40 12/07/16 00:00 68 12/06/16 22:00 40 12/06/16 22:00 72 12/06/16 21:55 100 40 12/06/16 21:55 40 12/06/16 21:37 100 40 12/06/16 20:00 40 12/06/16 20:00 98.5 68 16 107/58 (74) 100 12/06/16 20:00 72 12/06/16 18:00 66 12/06/16 16:00 40 12/06/16 16:00 66 12/06/16 16:00 98.6 66 12 113/55 (74) 100 12/06/16 15:39 100 40 12/06/16 14:00 68 12/06/16 12:54 99 40 12/06/16 12:00 65 12/06/16 12:00 98.6 65 14 113/60 (77) 93 12/06/16 12:00 40 12/06/16 10:00 67 12/06/16 09:20 40 12/06/16 09:20 99 40 I/O 12/06/16 12/06/16 12/06/16 12/07/16 12/07/16 12/07/16 07:00 15:00 23:00 07:00 15:00 23:00 Intake Total 889 ml 1128 ml 982 ml Output Total 800 ml 1600 ml 1900 ml Balance 89 ml -472 ml -918 ml Tube Feeding 649 ml 768 ml 682 ml Other 240 ml 360 ml 300 ml Output Urine Total 700 ml 1500 ml 1500 ml Stool Total 100 ml 100 ml 400 ml Result Diagram: 12/06/1650912/06/16509 Objective Remarks GENERAL: SKIN: Warm and dry. HEAD: Atraumatic. Normocephalic. EYES: Pupils equal and round. No scleral icterus. No injection or drainage. ENT: No nasal bleeding or discharge. Mucous membranes pink and moist. NECK: Trachea midline. No JVD. CARDIOVASCULAR: Regular rate and rhythm. RESPIRATORY: No accessory muscle use. Clear to auscultation. Breath sounds equal bilaterally. TRACHEOSTOMY IN PLACE GASTROINTESTINAL: Abdomen soft, non-tender, nondistended. Hepatic and splenic margins not palpable. MUSCULOSKELETAL: Extremities without clubbing, cyanosis, or edema. No obvious deformities. NEUROLOGICAL: Awake and alert. No obvious cranial nerve deficits. Motor grossly within normal limits. Five out of 5 muscle strength in the arms and legs. Normal speech. PSYCHIATRIC: Appropriate mood and affect; insight and judgment normal. Assessment and Plan Assessment and Plan RESP FAILURE, ON VENT SUPPORT S/P IC BLEED CXRAY 12/04 STABLE NO ACUTE ABNORMALITY PLAN WEAN TOLERATED ANTIBX PER ID PULMONARY TOILET Katie Wilson MD Dec 07, 2016 08:45
--- NOTE | 2016-12-07 17:25 | HHI.CCPN ---
Subjective Remarks/Hospital Course 10/07: 56-year-old male presents with intracranial bleed. Patient was transferred from [facility] at [facility]. As per the paramedics and the nurse who assisted the patient said that patient earlier this morning was coming down the stairs when he started feeling some left-sided weakness and numbness. He called 911 and by the time EMS arrived they detected some deficit and called a stroke alert. Patient was taken to [facility]. When patient arrived his mental status started to decline and he was intubated emergently in the ER. A CAT scan of the head showed subarachnoid and subdural bleed. He was taking emergently to an angio suite for coiling of the aneurysm and later on to OR for subdural hematoma evacuation. 10/08: Remains sedated, orally intubated on mechanical ventilation. Arouses off sedation and following commands with both upper extremities earlier. Ventriculostomy in place. ICP 7, CPP mid 80s. 10/09: Remains sedated, orally intubated on mechanical ventilation. Arouses off sedation and follows commands with both upper extremities. Ventriculostomy in place. 10/10: Remains sedated, orally intubated on mechanical ventilation. Arouses off sedation and follows commands and both upper extremities. Ventriculostomy in place. ICP 5. Failed C Pap trial yesterday. 10/11: Extubated on 10/10, tolerating well. Awake and alert. Appears confused, moving all 4 extremities. Ventriculostomy discontinued today by neurosurgery 10/13: Patient has developed severe vasospasm at the left MCA territory on TCD's that was treated with IV route verapamil 10/14: patient extubated overnight. was originally following commands and neuro intact. TCDs this morning with increase LIs over yesterday, particularly Left MCA territory. On my evaluation early this morning, patient was aphasic, not moving the right side of his body, not following commands. SBP 140s at that time. net 2L negative/24h and uop almost 1L/hr at the time. I immediately bolused with 2L NS iv, placed arterial and central lines, started phenylephrine , increased SBP to goal 200 - 220 mmHg. called interventional neuroradiology and accompanied patient down personally to IR for IA verapamil again. I remained with the patient managing his hemodynamics down in IR and providing anxiolysis IV. I accompanied patient back up to [facility] where patient again was neuro intact and following commands. Sodium downtrending to 135 and urine studies and serum osms suggestive of urine sodium losses and high uop. added Florinef to mitigate sodium losses, and increased mivf to 500cc/hr to maintain euvolemia. later in the day patient decompensated requiring intubation for hyoxemia, cxr suggestive of pulmonary edema. 2d echo with evidence of EF 40%, septal hypokinesis, moderate MR. On levo, vaso, phenylephrine. difficult to get to goal SBP 200 mmHg, likely due to myocardial dysfunction. decreased goal to 180 - 200 mmHg to balance cardiac vs. neurologic goals. 10/15 Patient was discussed with Dr. Sullivan at shift change. Isuprel was initiated in effort to improve cardiac output as dobutamine not available and concerned with use of milrinone given long half life. Systolic blood pressure was relatively stable with perhaps some modest improvement from 170s to 180s for several hours after initiation. Notified when patient became abruptly hypotensive despite vasopressin, levophed 20 mcg/min, Greyson-Synephrine 300 mcg/m. He was also hypoxemic with sats in 80s despite PCV with PEEP 8 and FiO2 100%, respiratory rate in the 30s. He had decreased breath sounds bilaterally and was concerned for air trapping so removed from mechanical ventilation and bagged without improvement. Placed patient back on mechanical ventilation and provide recruitment maneuvers and increased PEEP to 12 which resulted in improvement of sats to 88% to 92%. Ordered Flolan. Discontinued isuprel and initiated epinephrine. R radial art line would not draw blood . Performed u/s guided femoral artery stick to confirm hypoxemia on ABG given poor wave form on pulse ox and PaO2 was 58. Placed new L radial art line and this resulted in ~ 30 point increase in SBP relative to prior line but patient ultimately on vasopressin, levophed 30 micrograms per minute, Greyson-Synephrine 300 micrograms per minute, epinephrine 12 mcg/min and unable to maintain target pressure (SBP in 150s). Given calcium chloride. patient with shaking movements all extremities, pupils 2mm and sluggish, no eye deviation. Rigors seemed most likely but unable to emergently rule out seizures so loaded with fosphenytoin to avoid secondary injury from seizure activity. WBC increasing and concern for HCAP so pancultured and placed on cefepime, vancomycin, azithromycin. Hydrocortisone 100 mg IV every 8 hours initiated due to concern for septic shock in a patient who has been refractory to all other above measures. Patient is to hemodynamically unstable and hypoxic for transport for neurologic imaging. Urine output has declined to 180-200 ML's per hour. Back off maintenance IV fluids to 200 ML's per hour. Bedside echo demonstrates decreased LV function with normal RV contractility and collapsible IVC suggesting ongoing maintenance fluid administration is appropriate. 10/15 additional visit: continued to deteriorate throughout the day. Seen multiple times. hypoxic on 100% fio2, flolan. required nimbex drip to maintain. repeat bedside critical care ultrasound still demonstrates severe LV dysfunction , decompressed RV, IVC more dilated than previous echo overnight, however still with respiratory variation. femoral arterial line placed with better waveform and higher pressure (likely SVR too high to allow accurate measurement of radial pressure). Pulse contour analysis without stroke volume variation, CI 3.6. SV 52mL. trialed additional albumin without improvement in hemodynamics. uop slower than before, but still significant salt wasting in the urine- sodium dropped to 125 from 132 despite already on 3% nacl infusion and aggressive sodium replacements. forced to give 23% nacl and salt tabs. declining clinically despite maximal therapy. 10/16: continues to be maximally critically ill. LV dysfunction persists. starting to get volume overloaded, but given concern for ongoing cerebral vasospasm, unable to actively diurese patient. sodium wasting persists, but uop downtrending slightly. very hypokalemic today, likely due to steroids. remains intubated, sedated, paralyzed, on flolan. CXR today appears worse with worsening airspace disease. Lactate remains slightly elevated, confirming persistent shock. 10/17: Lung infiltrates dense bilaterally, reflected in shunting and problems with oxygenation. Developed vasospasm on TCDs and required angiogram and intra- arterial verapamil again today. 10/18: SBP 160 - 170 range. FiO2 0.55. BNP > 5000. Not tolerating attempts at maintaining higher BP due to worsening heart failure. Several episodes of vasospasm. Watch daily TCDs closely. Sputum no growth. 10/19: Tmax 99.8. Currently 99. Remains on 4 vasopressors and epoprostenol 10/20: Yesterday. Returned IR for intra-arterial calcium channel jose infusion for vasospasm. Transcranial Dopplers today Still pending. Remains on significant vasopressor support. 10/21: Good response to diuresis, check BNP. TCDs pending. Heart failure remains a major problem. 10/22: CVP 21 - 22, finger tips blue, digits pale white despite high dose milrinone dilation. Greyson and vaso much reduced. Will try diltiazem gtt for digital ischemia. Urine remains > 200/hr and proximal limbs are well perfused. This digital ischemia appears to be a local phenomenon ala Raynaud's. New subcutaneous emphysema right anterior chest wall. 10/23: Old CVL removed. Fingertips remain marginal, some necrotic despite diltiazem and milrinone treatment for digital ischemia. Cardiac output > 7 liters/min and urine copious, confirming good perfusion pressure and flow. This continues to be a local phenomenon of the digits ala Raynaud's. We are trying to wean vasopressors off but are required to maintaining a cerebral perfusion pressure suitable for the treatment of aneurysmal subarachnoid bleed. Frankly, the importance of brain function eclipses fingertips. 10/24: Afebrile. Well perfused except for index finger left hand, few tips fingers right. Arms and hands warmer with resolving circumferential edema. Diltiazem and milrinone gtt continue. Greyson to 10 mics/min. 10/25: Digits are warm and well perfused except left index and right 4th fingertips; demarcated and not viable. Dry. Diltiazem and milrinone infusions continue to help reverse digital ischemia. 10/26: Forced diuresis continues and BP remains nicely elevated. Hands and digits warm aside from left index and right 4th fingertips which have demarcated. 10/27: Good response to diuretics. Perfusion pressure and documented flow excellent. Continue to wean vent. 10/28: Start SBTs. Fluid balance back toward normal. 10/29: Tolerating SBTs. Lowering sedation. Edema resolving. 10/30: Tolerating tube feeds, will taper off TPN and remove central line. Continue diuretics. 10/31: net -3L over 24h. mental status at baseline. tolerating CPAP, but does not have the mental status to protect airway. will likely need trach/peg. placement will be a problem due to lack of funding. 11/01: no changes or improvements. discussed with yesterday and she "does not want any more setbacks" and would prefer trach versus trial of extubation. I agree with her assessment. plan for trach today. placement is still a significant problem. net -2L/24h. 11/02: wbc uptrending, febrile. antonio cultured, started empiric abx today. failed SBT overnight and placed back on rate. 11/03: Tolerating CPAP today, following commands. Low-grade fever cultures pending. WBC count normal today 11/04: Remains on TPs since yesterday. Neuro exam remains stable. Follows commands weakly. Na 152 11/05: Remains off vent for 48 hours now. Sitting up in stretcher chair today. Na improved to 149. remains weak but improving 11/06: Continues to tolerate TPs well. Neuro exam unchanged. Sodium 148 today. Continues to spike intermittent fever Tmax 102.7. 11/07: Continued fevers, no leukocytosis. 11/08: Stable for replacement of bone flap. 11/09: Getting a bit excessively diuresed, will decrease lasix and convert to PO. Fingertips and toes demarcating as expected. No immediate action required except for continued diltiazem therapy. Clearly a Raynaud's type digital ischemia as peripheral perfusion and urine output indicated excellent peripheral perfusion. 11/10: Tracks with eyes today, nods to questions. Failed swallow again. 11/11: Plan for PEG, GI consulted. Bone flap replacement on hold due to blood cultures and fever. 11/12: May get PEG today, Bone flap to be replaced coming week per Dr. Perry. Afebrile no white count 11/13: Neuro exam unchanged. Na was 150 yesterday, repeat CMP pending. Left flap remains sunken 11/14: emesis overnight with ? aspiration event. no increased O2 requirement, but fever to 102.5 today. recultured. no complaints from patient. 11/15: No changes. still low suspicion for infection. Awaiting ID clearance for bone flap replacement. also awaiting placement 11/16: Placed on full ventilator support overnight for acute hypoxemic respiratory failure due to mucous plugging. Mucomyst added. Not on any sedation. Chest x-ray back to baseline-no need a bronchoscopy at this time, but will do if there is recurrent plugging. Will check sputum culture, and trach site culture 11/17: Breathing comfortably on the vent, on CPAP now. Off all sedation. We'll attempt T piece yesterday. Sodium normal 11/18: Currently tolerating TP. Patient had a few episodes of nausea vomiting. KUB shows ileus. Overnight was started on Reglan IV and when necessary Zofran. We'll keep nothing by mouth until ileus resolved. 11/19: Back on vent rate due to poor spontaneous effort. Hgb down 2 gms - looks like dilution; follow closely. VS without change. Ileus has resolved. 11/20: ABIs normal with normal pressure. Inflow satisfactory to all limbs. GI tract working well. 11/21: Tmax 99.1. Positive BM from fecal containing device. Tolerating t piece 24 hours. Tube feeds are at goal. Okay for OR from ID standpoint 11/22 currently resting in bed in no acute distress. On TP since 48 hours. Tube feeds at goal. 11/23: Resting in bed on T piece and 72 hours. Tube feeding at goals. Cleared from ID for plastics. 11/26: rapid response for massive hemoptysis. Patient rapidly reintubated through mouth and trach tube removed at same time. No bleeding from the trach stoma or above. All blood is coming from below. Bronchoscopy demonstrated large clots in both left and right mainstems. Right side clot 2 x 2 x 3 cm. Finally suctioned clear enough to inspect - no bleeding source found. Will keep on vent with PEEP 12 and heavy sedation. Plts 380,000, INR 1.0 11/27: CTA reviewed. He appears to bee bleeding from the anterior segment of the right upper lobe, which is displaced inferiorly by apical bullous disease. 11/28: remains sedated and paralyzed. still requiring active transfusions. but no longer hypoxic and bloody secretions are much less. 11/29: overnight ett became dislodged leading to hypoxia, bradycardia, PEA arrest. ~10min CPR with ROSC and reintubation. this morning, off sedation, opens eyes spontaneously but no other movements. repeat CTA chest without evidence of extravasation from area of massive hemoptysis. 11/30: Resting in bed in no acute distress. Arousable and follows commands. Tolerating tube feed. Afebrile. 12/01: Afebrile. Since 6 AM, every hour with copious amounts of bright red blood per tracheostomy/TPs. IR for possible right bronchial artery embolization today. Noted likely culprit on CTA 11/26. Hasn't had active bleeding since then. 10/20: Afebrile. Status post embolization 2 right bronchial artery yesterday. Currently old blood from tracheostomy site. Saturations 100% on 40% FiO2. Tolerating tube feeding. 12/03: Resting in bed on ventilator via tracheostomy. No new issues overnight. Hemodynamically stable. 100% saturations 12/04: Afebrile. Noted increasing edema right greater than left upper extremity. Minimal bloody secretions from tracheostomy. Currently resting in bed in no acute distress. Subjective 12/05: Afebrile. Noted to have DVT in right upper extremity including inclusive of subclavian, axillary vein. Bilateral superficial cephalic veins bilaterally. Peripheral IVs removed. Placed left IJ CVL. 12/06: Drowsy, arousable, following commands. Remains on mechanical ventilation via tracheostomy. 12/07: Remains on mech vent via tracheosotmy. Daily CPAP trials. Objective Vital Signs Date Time Temp Pulse Resp B/P (MAP) Pulse Ox O2 Delivery O2 Flow Rate FiO2 12/07/16 16:00 72 12/07/16 16:00 98.9 20 124/63 (83) 100 12/07/16 16:00 40 Intake and Output 12/07/16 12/07/16 12/08/16 08:00 16:00 00:00 Intake Total 982 ml Output Total 1900 ml Balance -918 ml Result Diagram: 12/06/16 0510 12/06/16 0510 Imaging Last Impressions Chest X-Ray 12/04/16 1283 Signed Impressions: Service Date/Time: Sunday, December 04, 2016 18:55 - CONCLUSION: 1. Placement of left central line tip in superior vena cava. No pneumothorax. Mild basilar airspace disease. Small right effusion. Gurwinder Root MD Upper Extremity Ultrasound 12/04/16 0000 Signed Impressions: Service Date/Time: Sunday, December 04, 2016 15:37 - CONCLUSION: 1. Positive for occlusive deep venous thrombosis in the right axillary and subclavian vein. Occlusive superficial thrombus in bilateral cephalic veins. Gurwinder Root MD Angiography 12/01/16 0000 Signed Impressions: Service Date/Time: November 14:02 - CONCLUSION: 1. Right side up on her hemorrhage with angiography of the right bronchial artery revealing no source of active hemorrhage. Empiric embolization was performed. Santos Crockett Jr., MD Chest CT 11/28/16 0000 Signed Impressions: Service Date/Time: Tuesday, November 29, 2016 05:13 - CONCLUSION: 1. Patchy alveolar disease characteristic of edema or pneumonia. 2. Severe emphysema 3. Gastrojejunostomy tube looped in the stomach Harvey Morejon MD Chest/Thorax CTA 11/26/16 0000 Signed Impressions: Service Date/Time: Saturday, November 26, 2016 20:18 - CONCLUSION: 1. Extensive filling defects within the right central bronchial tree characteristic of endobronchial hemorrhage. 2. Consolidating airspace disease in the right upper lobe and right lower lobe characteristic of hemorrhage and post obstructive lung consolidation. 3. Right bronchial artery is identified extending to the central right bronchial region 4. Advanced COPD. Nasir Amanda MD Abdomen X-Ray 11/19/16 0600 Signed Impressions: Service Date/Time: Saturday, November 19, 2016 02:44 - CONCLUSION: Unchanged bowel gas pattern potentially relating to an ileus. Santos Crockett Jr., MD Transcranial Doppler Study Complete 10/20/16 0600 Signed Impressions: Service Date/Time: October 07:54 - CONCLUSION: Slight interval elevation of flow velocity measurements and ratio on the left Yosvany Polk MD Liver Ultrasound 10/19/16 0000 Signed Impressions: Service Date/Time: Wednesday, October 19, 2016 11:20 - CONCLUSION: 1. Sludge filled gallbladder with thickened wall. 2. Moderate size bilateral pleural effusions and mild upper abdominal ascites. Santos Vazquez MD Cerebral Arteriogram 10/19/16 0000 Signed Impressions: Service Date/Time: Wednesday, October 19, 2016 12:47 - CONCLUSION: Uncomplicated cerebral arteriography with spasmolytic therapy as described in detail above. Yosvany Polk MD Head CT 10/17/16 0000 Signed Impressions: Service Date/Time: Monday, October 17, 2016 15:06 - CONCLUSION: Ventricles are slightly larger without ventriculostomy. Edema in the left hemisphere the brain herniating through the operative site. Remington Woodward MD FACR Infusion Non-thrombolysis 10/14/16 1103 Signed Impressions: Service Date/Time: Friday, October 14, 2016 10:21 - CONCLUSION: 1. Uncomplicated infusion for spasmolysis Harvey Morejon MD Neck CTA 10/07/16 0000 Signed Impressions: Service Date/Time: Friday, October 07, 2016 15:03 - CONCLUSION: 1. Mild carotid bulb atherosclerotic calcification bilaterally. However, no significant stenosis is present in either internal carotid artery. 2. Paranasal sinus mucoperiosteal thickening. 3. Please refer to brain CTA report for description of the intracranial findings. Yosvany Ramirez MD Head CTA 10/07/16 0000 Signed Impressions: Service Date/Time: Friday, October 07, 2016 15:03 - CONCLUSION: 1. 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 2. Large left subdural hematoma measuring 1.3 cm in depth with a significant, 1.6 cm left to right subfalcine shift. Joni Shelton MD Objective Remarks GENERAL: 56-year-old male. Currently on ventilator via tracheostomy HEAD: Status post left craniectomy. Left flap sunken, Incision healing well EYES: 3 mm bilaterally and reactive NECK: trach site is clean dry and intact. Left IJ CVL clean dry and intact CARDIOVASCULAR: RRR. S1, S2 no S4. Without murmur RESPIRATORY: TP. Diffuse rhonchi and mobile secretions. bloody secretions are improving. GASTROINTESTINAL: Abdomen soft, non-tender, nondistended. No guarding. MUSCULOSKELETAL: Ischemic changes worst to left index finger tip, right 4th fingertip, and majority of R toes. Demarcating, dry. Right upper extremity 2+ edema. Left upper extremity 1+ edema. NEURO EXAM: Cranial nerves II through XII grossly intact.Right UE weaker than left, follows commands x4. SKIN: Stage IV decubitus ulcer 4 x 2 bilateral sacral. Maculopapular rash on feet bilaterally. Procedures 10/13 Four-vessel cerebral angiography with verapamil treatment of vasospasm Date of Insertion: Dec 04, 2016 Line: Central Venous Catheter Side: Left Location: Internal, Jugular A/P Assessment and Plan Neuro/Psych Status post left frontotemporal parietal craniectomy 10/08 for evacuation subdural hematoma/duraplasty Left subdural hematoma - 1.3 cm with 1.6 shift left to right Subarachnoid hemorrhage Alvarado and Rodriguez 5, Carroll grade 4 - left P-comm status post 4 coiling 10/08 Hypoxic-Ischemic Encephalopathy - Nimodipine completed 21 days. Initiated 10/13. - Levetiracetam 500 mg per tube q12h. - 10/13 and 10/14 and 10/17) 10/19 left MCA territory vasospasm, status post successful verapamil treatment by IR with 20 mg verapamil - 10/17 CT brain - less hemisphere edema with herniation through left craniotomy site, now improved. - Dr. Perry/neurosurgery. Plan to replace bone flap okayed by infectious disease. - hold sedation until neuro exam improves. frequent neuro checks. Respiratory: Acute hypoxic Respiratory failure secondary to mucous plugging Possible healthcare associated pneumonia ARDS- resolved Noncardiogenic/neurogenic pulmonary edema- resolved. Chronic respiratory failure requiring tracheostomy Massive Hemoptysis Aspiration pneumonitis -- PRVC 18/500/02/17/39 - Ventilator bundle. Daily CPAP trials. -- Albuterol/ipratropium aerosols every 6 hours with albuterol aerosols every [address] angiogram chest/neck revealed right centrilobular bleeding likely source right bronchial artery. Repeat CT chest 11/29/no visualization of active bleeding. -- Follow-up on sputum culture -- s/p Trach Dr. Sullivan/Dr. Collazo 11/01 #8 Shiley. --Redo trach 11/[address] Crockett 12/01 - embolization of right bronchial artery by IR Start CPAP trials today Cardiovascular: Septic and cardiogenic shock- resolved. LV dysfunction secondary to SAH - persistent, now resolved Elevated troponin- secondary to SAH, unlikely to be ACS. - resolved. Pulmonary hypertension s/p PEA arrest 11/28 after ett dislodgement, hypoxic arrest Continue free water 200mL per tube q6h. Echocardiogram 10/14/16 revealed EF 40-45%. Septal hypokinesis. Moderate MR. Severe pulmonary hypertension with pulmonary artery pressures estimated 61 mmHg Limited Echo 11/06: LVEF 60-65%, Trivial mitral and tricuspid regurgitation, No vegetations noted. Continue diltiazem's 90 mg by mouth every 6 hours and furosemide 20 mg daily currently off vasopressors. Renal: Cerebral Salt Wasting/SIADH-resolved now hypernatremic Strict I/Os. See FEN below. Creatinine currently within normal limits -> resolved. Monitor urine output FEN/GI: Ileus Elevated transaminases Hyperammonemia - Currently on Glucerna 1.5 goal 60 cc an hour. - free water per G tube - ICU electrolyte protocol. - Lansoprazole 30 mg by tube daily for GI prophylaxis - Continue bowel regimen - Continue PEG feeding. s/p PEG 11/12/16 Heme/ID: Septic Shock- resolved. Possible HCAP New Fever, leukocytosis, staph epi bacteremia Right occlusive subclavian, axillary and bilateral superficial cephalic thrombus - limited Echo to evaluate vegetation-neg. ID following - Follow-up on sputum culture, trach site culture - Digital Ischemia with necrosis, conservative management - s/p Diltiazem and milrinone infusions - Digits have demarcated, allow auto amputation. Cardizem PO currently and 90 mg every 6 hours (for digital ischemia, Raynaud's) Continue bacitracin twice a day to affected areas Peripheral IVs discontinued. Place central line for IV access. We'll need to be started on systemic anticoagulation at some point however with recent embolization for hemoptysis holding full anticoagulation at this time. Pertinent cultures 10/15 - blood cultures - 1 out of 4 anaerobic gram-negative cocci possibly Veillonella 10/15 - sputum - beta strep not A, strep species 10/19 cultures NG 10/21 1/4 bottles blood cultures coag negative staph. Culture 11/01. coag neg stah / bottles 11/16 sputum in trach site cultures negative s/p levofloxacin x 7 days end 11/15/16 Fluconazole discontinued per infectious disease Endocrine: Presumed Adrenal Insufficiency Discontinued fludrocortisone 10/18. Sliding-scale insulin with NovoLog -Accu-Cheks every 4 hours to maintain euglycemia MSK: Stage IV bilateral sacral decubitus ulcers Xeroform/ABD secured with paper tape change daily PT evaluate and treat Ultrasound Doppler venous bilateral upper extremities today. Prophylaxis: GI Prophylaxis - lansoprazole DVT Prophylaxis-- SCDs, d/c heparin subcutaneous hemoptysis Lines: - 10/14 right SC TLC, removed 10/22 - 10/14 right radial art line, removed 10/14 - 10/15 left radial art line, removed 10/16 - 10/22 left groin triple lumen placed, d/c 10/30 - d/c ramires. Level II follow-up Jonah Sanabria MD Dec 07, 2016 17:25
[2016-12-07] MEDS: MELATONIN 5 MG TAB PO SCH (21:00)
[2016-12-08] VITALS (18 sets, daily range): BP systolic 107–130; BP diastolic 58–69; PULSE 64–82; RESP 16–23; TEMP 98.3–99.2; O2SAT 99–100
[2016-12-08] MEDS: DILTIAZEM HCL 90 MG TAB PO SCH ×4 (00:23→18:00)
[2016-12-08] MEDS: METOCLOPRAMIDE HCL 10 MG/2 ML VIAL IV PUSH SCH ×3 (01:11→18:00)
[2016-12-08] MEDS: RESP: ALBUTEROL 2.5 MG/IPRATROPIUM 0.5 MG NEB (SCH) NEB (01:13)
[2016-12-08] MEDS: cloNIDine HCL 0.1 MG TAB PO SCH ×3 (02:00→18:00)
[2016-12-08] MEDS: CHLORHEXIDINE GLUCONATE 2 % 1 PACK (2 CLOTHS) TOP SCH (04:00)
[2016-12-08] MEDS: CHLORHEXIDINE 0.12% (ORAL KIT) 15 ML CUP MT SCH ×2 (08:00→20:17)
[2016-12-08] MEDS: BENEPROTEIN POWDER 1 PACK G-TUBE SCH ×6 (08:07→18:00)
[2016-12-08] MEDS: BACITRACIN TOP OINT 15 GM TUBE TOPICAL SCH ×2 (09:00→20:17)
[2016-12-08] MEDS: COLLAGENASE OINT 30 GM TUBE TOPICAL SCH (09:00)
[2016-12-08] MEDS: POVIDONE IODINE 10% OINT 30 GM TUBE TOPICAL SCH (09:00)
[2016-12-08] MEDS: SODIUM CHLORIDE 0.9% FLUSH 10 ML FLUSH IV FLUSH SCH ×3 (09:00→20:18)
[2016-12-08] MEDS: ARTIFICIAL TEARS OPTH SOLN 15 ML BTL EACH EYE SCH ×3 (09:00→18:00)
--- NOTE | 2016-12-08 09:27 | HHI.PR ---
Subjective Remarks ON THE VENTILATOR , NOW BIPAP ALERT NO DISTRESS Objective Vital Signs Date Time Temp Pulse Resp B/P (MAP) Pulse Ox O2 Delivery O2 Flow Rate FiO2 12/08/16 08:49 100 30 12/08/16 08:22 69 16 117/62 (80) 100 12/08/16 08:22 40 12/08/16 08:00 67 12/08/16 04:00 98.5 70 16 107/58 (74) 100 12/08/16 04:00 40 12/08/16 03:53 100 40 12/08/16 01:06 100 40 12/08/16 00:00 99.2 69 17 114/60 (78) 100 12/08/16 00:00 40 12/07/16 20:53 100 40 12/07/16 20:00 99.2 71 17 111/58 (75) 100 12/07/16 20:00 40 12/07/16 18:00 77 12/07/16 16:00 72 12/07/16 16:00 98.9 72 20 124/63 (83) 100 12/07/16 16:00 40 12/07/16 15:44 100 40 12/07/16 14:00 71 12/07/16 12:00 40 12/07/16 12:00 71 12/07/16 12:00 98.2 71 17 119/66 (83) 100 12/07/16 10:00 73 I/O 12/07/16 12/07/16 12/07/16 12/08/16 12/08/16 12/08/16 07:00 15:00 23:00 07:00 15:00 23:00 Intake Total 982 ml 947 ml 800 ml Output Total 1900 ml 1650 ml 2050 ml Balance -918 ml -703 ml -1250 ml Tube Feeding 682 ml 647 ml 600 ml Other 300 ml 300 ml 200 ml Output Urine Total 1500 ml 1250 ml 2000 ml Stool Total 400 ml 400 ml 50 ml Result Diagram: 12/06/1650912/06/16509 Objective Remarks GENERAL: SKIN: Warm and dry. HEAD: Atraumatic. Normocephalic. EYES: Pupils equal and round. No scleral icterus. No injection or drainage. ENT: No nasal bleeding or discharge. Mucous membranes pink and moist. NECK: Trachea midline. No JVD. CARDIOVASCULAR: Regular rate and rhythm. RESPIRATORY: No accessory muscle use. Clear to auscultation. Breath sounds equal bilaterally. TRACHEOSTOMY IN PLACE GASTROINTESTINAL: Abdomen soft, non-tender, nondistended. Hepatic and splenic margins not palpable. MUSCULOSKELETAL: Extremities without clubbing, cyanosis, or edema. No obvious deformities. NEUROLOGICAL: Awake and alert. No obvious cranial nerve deficits. Motor grossly within normal limits. Five out of 5 muscle strength in the arms and legs. Normal speech. PSYCHIATRIC: Appropriate mood and affect; insight and judgment normal. Assessment and Plan Assessment and Plan RESP FAILURE, ON VENT SUPPORT NOW ON BIPAP S/P IC BLEED CXRAY 12/04 STABLE NO ACUTE ABNORMALITY PLAN WEAN TOLERATED ANTIBX PER ID PULMONARY TOILET Katie Wilson MD Dec 08, 2016 09:27
[2016-12-08] MEDS: levETIRAcetam 500 MG/5 ML UDC NG SCH ×2 (09:43→20:17)
[2016-12-08] MEDS: LACTOBACILLUS ACIDOPHILUS TAB PO SCH ×3 (09:43→18:00)
[2016-12-08] MEDS: LANSOPRAZOLE SOLUTAB 30 MG TAB NG SCH (09:43)
[2016-12-08] MEDS: MELATONIN 5 MG TAB PO SCH (20:17)
[2016-12-09] VITALS (17 sets, daily range): BP systolic 118–158; BP diastolic 58–76; PULSE 58–98; RESP 12–21; TEMP 98.2–98.8; O2SAT 98–100
[2016-12-09] MEDS: DILTIAZEM HCL 90 MG TAB PO SCH ×4 (01:48→18:22)
[2016-12-09] MEDS: METOCLOPRAMIDE HCL 10 MG/2 ML VIAL IV PUSH SCH ×3 (01:49→18:21)
[2016-12-09] MEDS: cloNIDine HCL 0.1 MG TAB PO SCH ×3 (03:33→18:23)
--- NOTE | 2016-12-09 03:41 | HHI.CCPN ---
Subjective Remarks/Hospital Course 10/07: 56-year-old male presents with intracranial bleed. Patient was transferred from [facility] at [facility]. As per the paramedics and the nurse who assisted the patient said that patient earlier this morning was coming down the stairs when he started feeling some left-sided weakness and numbness. He called 911 and by the time EMS arrived they detected some deficit and called a stroke alert. Patient was taken to [facility]. When patient arrived his mental status started to decline and he was intubated emergently in the ER. A CAT scan of the head showed subarachnoid and subdural bleed. He was taking emergently to an angio suite for coiling of the aneurysm and later on to OR for subdural hematoma evacuation. 10/08: Remains sedated, orally intubated on mechanical ventilation. Arouses off sedation and following commands with both upper extremities earlier. Ventriculostomy in place. ICP 7, CPP mid 80s. 10/09: Remains sedated, orally intubated on mechanical ventilation. Arouses off sedation and follows commands with both upper extremities. Ventriculostomy in place. 10/10: Remains sedated, orally intubated on mechanical ventilation. Arouses off sedation and follows commands and both upper extremities. Ventriculostomy in place. ICP 5. Failed C Pap trial yesterday. 10/11: Extubated on 10/10, tolerating well. Awake and alert. Appears confused, moving all 4 extremities. Ventriculostomy discontinued today by neurosurgery 10/13: Patient has developed severe vasospasm at the left MCA territory on TCD's that was treated with IV route verapamil 10/14: patient extubated overnight. was originally following commands and neuro intact. TCDs this morning with increase LIs over yesterday, particularly Left MCA territory. On my evaluation early this morning, patient was aphasic, not moving the right side of his body, not following commands. SBP 140s at that time. net 2L negative/24h and uop almost 1L/hr at the time. I immediately bolused with 2L NS iv, placed arterial and central lines, started phenylephrine , increased SBP to goal 200 - 220 mmHg. called interventional neuroradiology and accompanied patient down personally to IR for IA verapamil again. I remained with the patient managing his hemodynamics down in IR and providing anxiolysis IV. I accompanied patient back up to [facility] where patient again was neuro intact and following commands. Sodium downtrending to 135 and urine studies and serum osms suggestive of urine sodium losses and high uop. added Florinef to mitigate sodium losses, and increased mivf to 500cc/hr to maintain euvolemia. later in the day patient decompensated requiring intubation for hyoxemia, cxr suggestive of pulmonary edema. 2d echo with evidence of EF 40%, septal hypokinesis, moderate MR. On levo, vaso, phenylephrine. difficult to get to goal SBP 200 mmHg, likely due to myocardial dysfunction. decreased goal to 180 - 200 mmHg to balance cardiac vs. neurologic goals. 10/15 Patient was discussed with Dr. Sullivan at shift change. Isuprel was initiated in effort to improve cardiac output as dobutamine not available and concerned with use of milrinone given long half life. Systolic blood pressure was relatively stable with perhaps some modest improvement from 170s to 180s for several hours after initiation. Notified when patient became abruptly hypotensive despite vasopressin, levophed 20 mcg/min, Greyson-Synephrine 300 mcg/m. He was also hypoxemic with sats in 80s despite PCV with PEEP 8 and FiO2 100%, respiratory rate in the 30s. He had decreased breath sounds bilaterally and was concerned for air trapping so removed from mechanical ventilation and bagged without improvement. Placed patient back on mechanical ventilation and provide recruitment maneuvers and increased PEEP to 12 which resulted in improvement of sats to 88% to 92%. Ordered Flolan. Discontinued isuprel and initiated epinephrine. R radial art line would not draw blood . Performed u/s guided femoral artery stick to confirm hypoxemia on ABG given poor wave form on pulse ox and PaO2 was 58. Placed new L radial art line and this resulted in ~ 30 point increase in SBP relative to prior line but patient ultimately on vasopressin, levophed 30 micrograms per minute, Greyson-Synephrine 300 micrograms per minute, epinephrine 12 mcg/min and unable to maintain target pressure (SBP in 150s). Given calcium chloride. patient with shaking movements all extremities, pupils 2mm and sluggish, no eye deviation. Rigors seemed most likely but unable to emergently rule out seizures so loaded with fosphenytoin to avoid secondary injury from seizure activity. WBC increasing and concern for HCAP so pancultured and placed on cefepime, vancomycin, azithromycin. Hydrocortisone 100 mg IV every 8 hours initiated due to concern for septic shock in a patient who has been refractory to all other above measures. Patient is to hemodynamically unstable and hypoxic for transport for neurologic imaging. Urine output has declined to 180-200 ML's per hour. Back off maintenance IV fluids to 200 ML's per hour. Bedside echo demonstrates decreased LV function with normal RV contractility and collapsible IVC suggesting ongoing maintenance fluid administration is appropriate. 10/15 additional visit: continued to deteriorate throughout the day. Seen multiple times. hypoxic on 100% fio2, flolan. required nimbex drip to maintain. repeat bedside critical care ultrasound still demonstrates severe LV dysfunction , decompressed RV, IVC more dilated than previous echo overnight, however still with respiratory variation. femoral arterial line placed with better waveform and higher pressure (likely SVR too high to allow accurate measurement of radial pressure). Pulse contour analysis without stroke volume variation, CI 3.6. SV 52mL. trialed additional albumin without improvement in hemodynamics. uop slower than before, but still significant salt wasting in the urine- sodium dropped to 125 from 132 despite already on 3% nacl infusion and aggressive sodium replacements. forced to give 23% nacl and salt tabs. declining clinically despite maximal therapy. 10/16: continues to be maximally critically ill. LV dysfunction persists. starting to get volume overloaded, but given concern for ongoing cerebral vasospasm, unable to actively diurese patient. sodium wasting persists, but uop downtrending slightly. very hypokalemic today, likely due to steroids. remains intubated, sedated, paralyzed, on flolan. CXR today appears worse with worsening airspace disease. Lactate remains slightly elevated, confirming persistent shock. 10/17: Lung infiltrates dense bilaterally, reflected in shunting and problems with oxygenation. Developed vasospasm on TCDs and required angiogram and intra- arterial verapamil again today. 10/18: SBP 160 - 170 range. FiO2 0.55. BNP > 5000. Not tolerating attempts at maintaining higher BP due to worsening heart failure. Several episodes of vasospasm. Watch daily TCDs closely. Sputum no growth. 10/19: Tmax 99.8. Currently 99. Remains on 4 vasopressors and epoprostenol 10/20: Yesterday. Returned IR for intra-arterial calcium channel jose infusion for vasospasm. Transcranial Dopplers today Still pending. Remains on significant vasopressor support. 10/21: Good response to diuresis, check BNP. TCDs pending. Heart failure remains a major problem. 10/22: CVP 21 - 22, finger tips blue, digits pale white despite high dose milrinone dilation. Greyson and vaso much reduced. Will try diltiazem gtt for digital ischemia. Urine remains > 200/hr and proximal limbs are well perfused. This digital ischemia appears to be a local phenomenon ala Raynaud's. New subcutaneous emphysema right anterior chest wall. 10/23: Old CVL removed. Fingertips remain marginal, some necrotic despite diltiazem and milrinone treatment for digital ischemia. Cardiac output > 7 liters/min and urine copious, confirming good perfusion pressure and flow. This continues to be a local phenomenon of the digits ala Raynaud's. We are trying to wean vasopressors off but are required to maintaining a cerebral perfusion pressure suitable for the treatment of aneurysmal subarachnoid bleed. Frankly, the importance of brain function eclipses fingertips. 10/24: Afebrile. Well perfused except for index finger left hand, few tips fingers right. Arms and hands warmer with resolving circumferential edema. Diltiazem and milrinone gtt continue. Greyson to 10 mics/min. 10/25: Digits are warm and well perfused except left index and right 4th fingertips; demarcated and not viable. Dry. Diltiazem and milrinone infusions continue to help reverse digital ischemia. 10/26: Forced diuresis continues and BP remains nicely elevated. Hands and digits warm aside from left index and right 4th fingertips which have demarcated. 10/27: Good response to diuretics. Perfusion pressure and documented flow excellent. Continue to wean vent. 10/28: Start SBTs. Fluid balance back toward normal. 10/29: Tolerating SBTs. Lowering sedation. Edema resolving. 10/30: Tolerating tube feeds, will taper off TPN and remove central line. Continue diuretics. 10/31: net -3L over 24h. mental status at baseline. tolerating CPAP, but does not have the mental status to protect airway. will likely need trach/peg. placement will be a problem due to lack of funding. 11/01: no changes or improvements. discussed with yesterday and she "does not want any more setbacks" and would prefer trach versus trial of extubation. I agree with her assessment. plan for trach today. placement is still a significant problem. net -2L/24h. 11/02: wbc uptrending, febrile. antonio cultured, started empiric abx today. failed SBT overnight and placed back on rate. 11/03: Tolerating CPAP today, following commands. Low-grade fever cultures pending. WBC count normal today 11/04: Remains on TPs since yesterday. Neuro exam remains stable. Follows commands weakly. Na 152 11/05: Remains off vent for 48 hours now. Sitting up in stretcher chair today. Na improved to 149. remains weak but improving 11/06: Continues to tolerate TPs well. Neuro exam unchanged. Sodium 148 today. Continues to spike intermittent fever Tmax 102.7. 11/07: Continued fevers, no leukocytosis. 11/08: Stable for replacement of bone flap. 11/09: Getting a bit excessively diuresed, will decrease lasix and convert to PO. Fingertips and toes demarcating as expected. No immediate action required except for continued diltiazem therapy. Clearly a Raynaud's type digital ischemia as peripheral perfusion and urine output indicated excellent peripheral perfusion. 11/10: Tracks with eyes today, nods to questions. Failed swallow again. 11/11: Plan for PEG, GI consulted. Bone flap replacement on hold due to blood cultures and fever. 11/12: May get PEG today, Bone flap to be replaced coming week per Dr. Perry. Afebrile no white count 11/13: Neuro exam unchanged. Na was 150 yesterday, repeat CMP pending. Left flap remains sunken 11/14: emesis overnight with ? aspiration event. no increased O2 requirement, but fever to 102.5 today. recultured. no complaints from patient. 11/15: No changes. still low suspicion for infection. Awaiting ID clearance for bone flap replacement. also awaiting placement 11/16: Placed on full ventilator support overnight for acute hypoxemic respiratory failure due to mucous plugging. Mucomyst added. Not on any sedation. Chest x-ray back to baseline-no need a bronchoscopy at this time, but will do if there is recurrent plugging. Will check sputum culture, and trach site culture 11/17: Breathing comfortably on the vent, on CPAP now. Off all sedation. We'll attempt T piece yesterday. Sodium normal 11/18: Currently tolerating TP. Patient had a few episodes of nausea vomiting. KUB shows ileus. Overnight was started on Reglan IV and when necessary Zofran. We'll keep nothing by mouth until ileus resolved. 11/19: Back on vent rate due to poor spontaneous effort. Hgb down 2 gms - looks like dilution; follow closely. VS without change. Ileus has resolved. 11/20: ABIs normal with normal pressure. Inflow satisfactory to all limbs. GI tract working well. 11/21: Tmax 99.1. Positive BM from fecal containing device. Tolerating t piece 24 hours. Tube feeds are at goal. Okay for OR from ID standpoint 11/22 currently resting in bed in no acute distress. On TP since 48 hours. Tube feeds at goal. 11/23: Resting in bed on T piece and 72 hours. Tube feeding at goals. Cleared from ID for plastics. 11/26: rapid response for massive hemoptysis. Patient rapidly reintubated through mouth and trach tube removed at same time. No bleeding from the trach stoma or above. All blood is coming from below. Bronchoscopy demonstrated large clots in both left and right mainstems. Right side clot 2 x 2 x 3 cm. Finally suctioned clear enough to inspect - no bleeding source found. Will keep on vent with PEEP 12 and heavy sedation. Plts 380,000, INR 1.0 11/27: CTA reviewed. He appears to bee bleeding from the anterior segment of the right upper lobe, which is displaced inferiorly by apical bullous disease. 11/28: remains sedated and paralyzed. still requiring active transfusions. but no longer hypoxic and bloody secretions are much less. 11/29: overnight ett became dislodged leading to hypoxia, bradycardia, PEA arrest. ~10min CPR with ROSC and reintubation. this morning, off sedation, opens eyes spontaneously but no other movements. repeat CTA chest without evidence of extravasation from area of massive hemoptysis. 11/30: Resting in bed in no acute distress. Arousable and follows commands. Tolerating tube feed. Afebrile. 12/01: Afebrile. Since 6 AM, every hour with copious amounts of bright red blood per tracheostomy/TPs. IR for possible right bronchial artery embolization today. Noted likely culprit on CTA 11/26. Hasn't had active bleeding since then. 10/20: Afebrile. Status post embolization 2 right bronchial artery yesterday. Currently old blood from tracheostomy site. Saturations 100% on 40% FiO2. Tolerating tube feeding. 12/03: Resting in bed on ventilator via tracheostomy. No new issues overnight. Hemodynamically stable. 100% saturations 12/04: Afebrile. Noted increasing edema right greater than left upper extremity. Minimal bloody secretions from tracheostomy. Currently resting in bed in no acute distress. Subjective 12/05: Afebrile. Noted to have DVT in right upper extremity including inclusive of subclavian, axillary vein. Bilateral superficial cephalic veins bilaterally. Peripheral IVs removed. Placed left IJ CVL. 12/06: Drowsy, arousable, following commands. Remains on mechanical ventilation via tracheostomy. 12/07: Remains on mech vent via tracheosotmy. Daily CPAP trials. 12/08: Opens eyes, looks around. Good respiratory effort on T-piece. Working on disposition. 12/09: On T piece during daytime, placed on C Pap with pressure support overnight. Tracheostomy tube appears to be burrowing into his skin with breakdown with neck flexion. Objective Vital Signs Date Time Temp Pulse Resp B/P (MAP) Pulse Ox O2 Delivery O2 Flow Rate FiO2 12/09/16 02:00 62 12/09/16 01:30 100 30 12/09/16 00:00 98.7 12 148/65 (92) 12/08/16 19:53 T-piece Result Diagram: 12/06/16 0510 12/06/16 0510 Imaging Last Impressions Chest X-Ray 12/04/16 1753 Signed Impressions: Service Date/Time: Sunday, December 04, 2016 18:55 - CONCLUSION: 1. Placement of left central line tip in superior vena cava. No pneumothorax. Mild basilar airspace disease. Small right effusion. Gurwinder Root MD Upper Extremity Ultrasound 12/04/16 0000 Signed Impressions: Service Date/Time: Sunday, December 04, 2016 15:37 - CONCLUSION: 1. Positive for occlusive deep venous thrombosis in the right axillary and subclavian vein. Occlusive superficial thrombus in bilateral cephalic veins. Gurwinder Root MD Angiography 12/01/16 0000 Signed Impressions: Service Date/Time: November 14:02 - CONCLUSION: 1. Right side up on her hemorrhage with angiography of the right bronchial artery revealing no source of active hemorrhage. Empiric embolization was performed. Santos Crockett Jr., MD Chest CT 11/28/16 0000 Signed Impressions: Service Date/Time: Tuesday, November 29, 2016 05:13 - CONCLUSION: 1. Patchy alveolar disease characteristic of edema or pneumonia. 2. Severe emphysema 3. Gastrojejunostomy tube looped in the stomach Harvey Morejon MD Chest/Thorax CTA 11/26/16 0000 Signed Impressions: Service Date/Time: Saturday, November 26, 2016 20:18 - CONCLUSION: 1. Extensive filling defects within the right central bronchial tree characteristic of endobronchial hemorrhage. 2. Consolidating airspace disease in the right upper lobe and right lower lobe characteristic of hemorrhage and post obstructive lung consolidation. 3. Right bronchial artery is identified extending to the central right bronchial region 4. Advanced COPD. Nasir Amanda MD Abdomen X-Ray 11/19/16 0600 Signed Impressions: Service Date/Time: Saturday, November 19, 2016 02:44 - CONCLUSION: Unchanged bowel gas pattern potentially relating to an ileus. Santos Crockett Jr., MD Transcranial Doppler Study Complete 10/20/16 0600 Signed Impressions: Service Date/Time: October 07:54 - CONCLUSION: Slight interval elevation of flow velocity measurements and ratio on the left Yosvany Polk MD Liver Ultrasound 10/19/16 0000 Signed Impressions: Service Date/Time: Wednesday, October 19, 2016 11:20 - CONCLUSION: 1. Sludge filled gallbladder with thickened wall. 2. Moderate size bilateral pleural effusions and mild upper abdominal ascites. Santos Vazquez MD Cerebral Arteriogram 10/19/16 0000 Signed Impressions: Service Date/Time: Wednesday, October 19, 2016 12:47 - CONCLUSION: Uncomplicated cerebral arteriography with spasmolytic therapy as described in detail above. Yosvany Polk MD Head CT 10/17/16 0000 Signed Impressions: Service Date/Time: Monday, October 17, 2016 15:06 - CONCLUSION: Ventricles are slightly larger without ventriculostomy. Edema in the left hemisphere the brain herniating through the operative site. Remington Woodward MD FACR Infusion Non-thrombolysis 10/14/16 1103 Signed Impressions: Service Date/Time: Friday, October 14, 2016 10:21 - CONCLUSION: 1. Uncomplicated infusion for spasmolysis Harvey Morejon MD Neck CTA 10/07/16 0000 Signed Impressions: Service Date/Time: Friday, October 07, 2016 15:03 - CONCLUSION: 1. Mild carotid bulb atherosclerotic calcification bilaterally. However, no significant stenosis is present in either internal carotid artery. 2. Paranasal sinus mucoperiosteal thickening. 3. Please refer to brain CTA report for description of the intracranial findings. Yosvany Ramirez MD Head CTA 10/07/16 0000 Signed Impressions: Service Date/Time: Friday, October 07, 2016 15:03 - CONCLUSION: 1. 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 2. Large left subdural hematoma measuring 1.3 cm in depth with a significant, 1.6 cm left to right subfalcine shift. Joni Shelton MD Objective Remarks GENERAL: 56-year-old male. Currently on ventilator via tracheostomy HEAD: Status post left craniectomy. Left flap sunken, Incision healing well EYES: 3 mm bilaterally and reactive NECK: trach site noted with skin breakdown and inferior margin. left IJ CVL clean dry and intact CARDIOVASCULAR: RRR. S1, S2 no S4. Without murmur RESPIRATORY: Scattered rhonchi and mobile secretions. Few bloody secretions persist. GASTROINTESTINAL: Abdomen soft, non-tender, nondistended. No guarding. MUSCULOSKELETAL: Ischemic changes worst to left index finger tip, right 4th fingertip, and majority of R toes. Demarcating, dry. Right upper extremity 2+ edema. Left upper extremity 1+ edema. NEURO EXAM: Cranial nerves II through XII grossly intact.Right UE weaker than left, follows commands x4. SKIN: Stage IV decubitus ulcer 4 x 2 bilateral sacral. Maculopapular rash on feet bilaterally. Procedures 10/13 Four-vessel cerebral angiography with verapamil treatment of vasospasm Date of Insertion: Dec 04, 2016 Line: Central Venous Catheter Side: Left Location: Internal, Jugular A/P Assessment and Plan Neuro/Psych Status post left frontotemporal parietal craniectomy 10/08 for evacuation subdural hematoma/duraplasty Left subdural hematoma - 1.3 cm with 1.6 shift left to right Subarachnoid hemorrhage Alvarado and Rodriguez 5, Carroll grade 4 - left P-comm status post 4 coiling 10/08 Hypoxic-Ischemic Encephalopathy - Nimodipine completed 21 days. Initiated 10/13. - Levetiracetam 500 mg per tube q12h. - 10/13 and 10/14 and 10/17) 10/19 left MCA territory vasospasm, status post successful verapamil treatment by IR with 20 mg verapamil - 10/17 CT brain - less hemisphere edema with herniation through left craniotomy site, now improved. - Dr. Perry/neurosurgery. Plan to replace bone flap okayed by infectious disease. - frequent neuro checks. Respiratory: Acute hypoxic Respiratory failure secondary to mucous plugging Possible healthcare associated pneumonia ARDS- resolved Noncardiogenic/neurogenic pulmonary edema- resolved. Chronic respiratory failure requiring tracheostomy Massive Hemoptysis Aspiration pneumonitis -- PRVC /02/17/39 - Ventilator bundle. Daily CPAP trials. -- Albuterol/ipratropium aerosols every 6 hours with albuterol aerosols every [address] angiogram chest/neck revealed right centrilobular bleeding likely source right bronchial artery. Repeat CT chest 11/29/no visualization of active bleeding. -- Follow-up on sputum culture -- s/p Trach Dr. Sullivan/Dr. Collazo 11/01 #8 Shiley. --Redo trach 11/[address] Crockett 12/01 - embolization of right bronchial artery by IR Start CPAP trials today Cardiovascular: Septic and cardiogenic shock- resolved. LV dysfunction secondary to SAH - persistent, now resolved Elevated troponin- secondary to SAH, unlikely to be ACS. - resolved. Pulmonary hypertension s/p PEA arrest 11/28 after ett dislodgement, hypoxic arrest Continue free water 200mL per tube q6h. Echocardiogram 10/14/16 revealed EF 40-45%. Septal hypokinesis. Moderate MR. Severe pulmonary hypertension with pulmonary artery pressures estimated 61 mmHg Limited Echo 11/06: LVEF 60-65%, Trivial mitral and tricuspid regurgitation, No vegetations noted. Continue diltiazem's 90 mg by mouth every 6 hours and furosemide 20 mg daily currently off vasopressors. Renal: Cerebral Salt Wasting/SIADH-resolved now hypernatremic Strict I/Os. See FEN below. Creatinine currently within normal limits -> resolved. Monitor urine output FEN/GI: Ileus Elevated transaminases Hyperammonemia - Currently on Glucerna 1.5 goal 60 cc an hour. - free water per G tube - ICU electrolyte protocol. - Lansoprazole 30 mg by tube daily for GI prophylaxis - Continue bowel regimen - Continue PEG feeding. s/p PEG 11/12/16 Heme/ID: Septic Shock- resolved. Possible HCAP New Fever, leukocytosis, staph epi bacteremia Right occlusive subclavian, axillary and bilateral superficial cephalic thrombus - limited Echo to evaluate vegetation-neg. ID following - Follow-up on sputum culture, trach site culture - Digital Ischemia with necrosis, conservative management - s/p Diltiazem and milrinone infusions - Digits have demarcated, allow auto amputation. Cardizem PO currently and 90 mg every 6 hours (for digital ischemia, Raynaud's) Continue bacitracin twice a day to affected areas Peripheral IVs discontinued. Place central line for IV access. We'll need to be started on systemic anticoagulation at some point however with recent embolization for hemoptysis holding full anticoagulation at this time. Pertinent cultures 10/15 - blood cultures - 1 out of 4 anaerobic gram-negative cocci possibly Veillonella 10/15 - sputum - beta strep not A, strep species 10/19 cultures NG 10/21 1/4 bottles blood cultures coag negative staph. Culture 11/01. coag neg stah / bottles 11/16 sputum in trach site cultures negative s/p levofloxacin x 7 days end 11/15/16 Fluconazole discontinued per infectious disease Endocrine: Presumed Adrenal Insufficiency Discontinued fludrocortisone 10/18. Sliding-scale insulin with NovoLog -Accu-Cheks every 4 hours to maintain euglycemia MSK: Stage IV bilateral sacral decubitus ulcers Xeroform/ABD secured with paper tape change daily PT evaluate and treat Ultrasound Doppler venous bilateral upper extremities today. Prophylaxis: GI Prophylaxis - lansoprazole DVT Prophylaxis-- SCDs, d/c heparin subcutaneous hemoptysis Lines: - 10/14 right SC TLC, removed 10/22 - 10/14 right radial art line, removed 10/14 - 10/15 left radial art line, removed 10/16 - 10/22 left groin triple lumen placed, d/c 10/30 - d/c ramires. Overall impression: Source of hemoptysis appears to have been spontaneous from the right lung, now stopped for several days. Continue to work on disposition. Jonah Sanabria MD Dec 09, 2016 03:41
[2016-12-09] MEDS: CHLORHEXIDINE GLUCONATE 2 % 1 PACK (2 CLOTHS) TOP SCH (04:31)
[2016-12-09 06:28] LABS: AUTOMATED NEUTROPHIL # 3.6 TH/MM3 (1.8-7.7); BASOPHIL # 0.1 TH/MM3 (0-0.2); BASOPHIL % 1.4 % (0.0-2.0); EOSINOPHIL % 0.1 % (0.0-4.0); HEMO FLAGS DIFF FINAL; LYMPH % 32.1 % (9.0-44.0); LYMPHOCYTE # 2.1 TH/MM3 (1.0-4.8); MEAN CELL VOLUME 90.8 FL (80.0-100.0); MEAN CORPUSCULAR HEMOGLOBIN 29.9 PG (27.0-34.0); MEAN CORPUSCULAR HGB CONC 32.9 % (32.0-36.0); MONO % 9.6 % (0.0-8.0); NEUT % 56.8 % (16.0-70.0); PLATELET COUNT 226 TH/MM3 (150-450); RED BLOOD COUNT 2.76 MIL/MM3 (4.50-5.90); RED CELL DISTRIBUTION WIDTH 15.7 % (11.6-17.2); WHITE BLOOD COUNT 6.4 TH/MM3 (4.0-11.0)
[2016-12-09] MEDS: CHLORHEXIDINE 0.12% (ORAL KIT) 15 ML CUP MT SCH ×2 (08:00→20:59)
--- NOTE | 2016-12-09 08:22 | HHI.PR ---
Subjective Remarks ON THE VENTILATOR , NOW BIPAP ALERT NO DISTRESS Objective Vital Signs Date Time Temp Pulse Resp B/P (MAP) Pulse Ox O2 Delivery O2 Flow Rate FiO2 12/09/16 06:00 71 12/09/16 04:16 100 30 12/09/16 04:00 30 12/09/16 04:00 69 12/09/16 04:00 98.6 69 19 118/58 (78) 100 12/09/16 02:00 62 12/09/16 01:30 100 30 12/09/16 00:00 30 12/09/16 00:00 98.7 66 12 148/65 (92) 100 12/09/16 00:00 66 12/08/16 23:00 100 30 12/08/16 22:00 68 12/08/16 20:00 98.8 64 18 129/60 (83) 100 12/08/16 20:00 64 12/08/16 20:00 30 12/08/16 19:53 100 T-piece 35 12/08/16 18:00 72 12/08/16 16:00 99.1 74 18 130/69 (89) 100 12/08/16 16:00 28 12/08/16 16:00 82 12/08/16 14:00 75 12/08/16 12:15 100 T-piece 28 12/08/16 12:03 100 30 12/08/16 12:00 71 12/08/16 12:00 40 12/08/16 12:00 98.3 76 23 118/67 (84) 99 12/08/16 10:00 73 12/08/16 08:49 100 30 12/08/16 08:22 69 16 117/62 (80) 100 12/08/16 08:22 40 I/O 12/08/16 12/08/16 12/08/16 12/09/16 12/09/16 12/09/16 07:00 15:00 23:00 07:00 15:00 23:00 Intake Total 800 ml 1026 ml 742 ml Output Total 2050 ml 2800 ml 2050 ml Balance -1250 ml -1774 ml -1308 ml Tube Feeding 600 ml 726 ml 622 ml Other 200 ml 300 ml 120 ml Output Urine Total 2000 ml 2600 ml 1850 ml Stool Total 50 ml 200 ml 200 ml Result Diagram: 12/09/16 0545 12/06/16 0510 Objective Remarks GENERAL: SKIN: Warm and dry. HEAD: Atraumatic. Normocephalic. EYES: Pupils equal and round. No scleral icterus. No injection or drainage. ENT: No nasal bleeding or discharge. Mucous membranes pink and moist. NECK: Trachea midline. No JVD. CARDIOVASCULAR: Regular rate and rhythm. RESPIRATORY: No accessory muscle use. Clear to auscultation. Breath sounds equal bilaterally. TRACHEOSTOMY IN PLACE GASTROINTESTINAL: Abdomen soft, non-tender, nondistended. Hepatic and splenic margins not palpable. MUSCULOSKELETAL: Extremities without clubbing, cyanosis, or edema. No obvious deformities. NEUROLOGICAL: Awake and alert. No obvious cranial nerve deficits. Motor grossly within normal limits. Five out of 5 muscle strength in the arms and legs. Normal speech. PSYCHIATRIC: Appropriate mood and affect; insight and judgment normal. Assessment and Plan Assessment and Plan RESP FAILURE, ON VENT SUPPORT NOW ON BIPAP S/P IC BLEED CXRAY 12/04 STABLE NO ACUTE ABNORMALITY PLAN WEAN TOLERATED ANTIBX PER ID PULMONARY TOILET Katie Wilson MD Dec 09, 2016 08:22
[2016-12-09] MEDS: POVIDONE IODINE 10% OINT 30 GM TUBE TOPICAL SCH (09:00)
[2016-12-09] MEDS: ARTIFICIAL TEARS OPTH SOLN 15 ML BTL EACH EYE SCH ×3 (09:00→18:21)
[2016-12-09] MEDS: SODIUM CHLORIDE 0.9% FLUSH 10 ML FLUSH IV FLUSH SCH ×3 (09:00→21:11)
[2016-12-09] MEDS: COLLAGENASE OINT 30 GM TUBE TOPICAL SCH (09:00)
[2016-12-09] MEDS: BENEPROTEIN POWDER 1 PACK G-TUBE SCH ×6 (09:00→18:21)
[2016-12-09] MEDS: BACITRACIN TOP OINT 15 GM TUBE TOPICAL SCH ×2 (09:00→20:59)
[2016-12-09] MEDS: LANSOPRAZOLE SOLUTAB 30 MG TAB NG SCH (09:51)
[2016-12-09] MEDS: levETIRAcetam 500 MG/5 ML UDC NG SCH ×2 (09:52→20:59)
[2016-12-09] MEDS: LACTOBACILLUS ACIDOPHILUS TAB PO SCH ×3 (09:57→18:23)
--- NOTE | 2016-12-09 12:15 | PD.WCN.NOT ---
Wound Consult Description: Received wound management of breakdown under trach and follow up of stage Communicated with: JOSE CRUZ Camejo [facility] and JOSE CRUZ Zhao [facility]. and Doctor Zay Recommendation: 1.Please cleanse buttock wounds with normal saline only and apply Santyl ointment patsy thickness with slightly moistened Maxorb II (Calcium alginate) dressing just over wound bed . Redding skin prep to periwound before covering with an ABD pad and securing with tape.change dressing daily. 2. Cleanse wound below trach with normal saline and pat dry, apply Optifoam basic cut to fit around and partially under trach. Change dressing as needed. Please obtain order to remove sutures around trach. 3.Continue to turn and reposition patient every 2 hours from left to right and PRN for comfort Additional Information: Patient seen on [address] for follow up of wounds to bilateral buttocks and for evaluation of wound below trach.Positioned patient to left side for assessment after holding tube feed and lowering head of bed, with the maximum assistance of Nell felipe [facility] and Pavel BILLINGSLEY ISC and tag writer. Removed adhesive foam dressing and Xeroform gauze dressing in place to reveal wounds to R and L buttock. Patient has dignishield in place. Right buttock wound presents as full thickness skin loss measuring 3.4cm x 1.6cm x slough with ~20% yellow slough and ~80% red granulation tissue noted in moist wound bed with well defined wound margins.Periwound is noted with slight blanchable erythema but other lora unremarkable. Wound has minimal sero-sanguinous active drainage that is without foul odor. Left buttock wound presents as full thickness skin loss measuring 4cm x 1.8cmx slough wound is noted with moist wound bed, with minimal active sero-sanguinous drainage and no foul odor. Wound bed presents with ~30% loosely adherent yellow slough and 70% red granulation tissue, with well defined wound margins.Periwound presents with slight blanchable erythema, but otherwise unremarkable. Wounds were cleansed with NS and gauze prior to applying Xeroform gauze dressing just over wound beds to L and R buttock in a single layer. Sprayed periwound with Cavilon skin prep before applying ABD pad, secured with paper tape Patient was positioned on back for wound assessment of wound below trach. Removed gauze in place to reveal trach that is sutured in place with 4 sutures. full thickness wound is noted just below trach site. Wound bed presents with ~70 % thin yellow exudate and ~30% pink tissue. Wound drainage is minimal and sero- sanguinous without odor. 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 Wound measures 1.8cmx 0.9cm x ~0.2cm. Cleansed wound with normal saline and applied optifoam basic dressing cut to fit. Placed slightly under trach and above trach to offload pressure and cover wound. Patient is noted on a low airloss specialty surface with 2 staggered ultrasorbs underneath him for moisture and turn sheet for positioning. Recommendations for wound care have changed as noted above. Patient is being followed by wound care team. Zina Rodney [facility]OSPITALSilvestre Dec 09, 2016 12:15
[2016-12-09] MEDS: MELATONIN 5 MG TAB PO SCH (20:59)
[2016-12-10] VITALS (12 sets, daily range): BP systolic 120–155; BP diastolic 55–67; PULSE 58–68; RESP 15–18; TEMP 97.9–98.2; O2SAT 100
[2016-12-10] MEDS: DILTIAZEM HCL 90 MG TAB PO SCH ×4 (03:40→17:45)
[2016-12-10] MEDS: METOCLOPRAMIDE HCL 10 MG/2 ML VIAL IV PUSH SCH ×3 (03:42→17:44)
[2016-12-10] MEDS: cloNIDine HCL 0.1 MG TAB PO SCH ×3 (03:44→17:45)
[2016-12-10] MEDS: CHLORHEXIDINE GLUCONATE 2 % 1 PACK (2 CLOTHS) TOP SCH (03:46)
--- NOTE | 2016-12-10 07:56 | HHI.CCPN ---
Subjective Remarks/Hospital Course 10/07: 56-year-old male presents with intracranial bleed. Patient was transferred from [facility] at [facility]. As per the paramedics and the nurse who assisted the patient said that patient earlier this morning was coming down the stairs when he started feeling some left-sided weakness and numbness. He called 911 and by the time EMS arrived they detected some deficit and called a stroke alert. Patient was taken to [facility]. When patient arrived his mental status started to decline and he was intubated emergently in the ER. A CAT scan of the head showed subarachnoid and subdural bleed. He was taking emergently to an angio suite for coiling of the aneurysm and later on to OR for subdural hematoma evacuation. 10/08: Remains sedated, orally intubated on mechanical ventilation. Arouses off sedation and following commands with both upper extremities earlier. Ventriculostomy in place. ICP 7, CPP mid 80s. 10/09: Remains sedated, orally intubated on mechanical ventilation. Arouses off sedation and follows commands with both upper extremities. Ventriculostomy in place. 10/10: Remains sedated, orally intubated on mechanical ventilation. Arouses off sedation and follows commands and both upper extremities. Ventriculostomy in place. ICP 5. Failed C Pap trial yesterday. 10/11: Extubated on 10/10, tolerating well. Awake and alert. Appears confused, moving all 4 extremities. Ventriculostomy discontinued today by neurosurgery 10/13: Patient has developed severe vasospasm at the left MCA territory on TCD's that was treated with IV route verapamil 10/14: patient extubated overnight. was originally following commands and neuro intact. TCDs this morning with increase LIs over yesterday, particularly Left MCA territory. On my evaluation early this morning, patient was aphasic, not moving the right side of his body, not following commands. SBP 140s at that time. net 2L negative/24h and uop almost 1L/hr at the time. I immediately bolused with 2L NS iv, placed arterial and central lines, started phenylephrine , increased SBP to goal 200 - 220 mmHg. called interventional neuroradiology and accompanied patient down personally to IR for IA verapamil again. I remained with the patient managing his hemodynamics down in IR and providing anxiolysis IV. I accompanied patient back up to [facility] where patient again was neuro intact and following commands. Sodium downtrending to 135 and urine studies and serum osms suggestive of urine sodium losses and high uop. added Florinef to mitigate sodium losses, and increased mivf to 500cc/hr to maintain euvolemia. later in the day patient decompensated requiring intubation for hyoxemia, cxr suggestive of pulmonary edema. 2d echo with evidence of EF 40%, septal hypokinesis, moderate MR. On levo, vaso, phenylephrine. difficult to get to goal SBP 200 mmHg, likely due to myocardial dysfunction. decreased goal to 180 - 200 mmHg to balance cardiac vs. neurologic goals. 10/15 Patient was discussed with Dr. Sullivan at shift change. Isuprel was initiated in effort to improve cardiac output as dobutamine not available and concerned with use of milrinone given long half life. Systolic blood pressure was relatively stable with perhaps some modest improvement from 170s to 180s for several hours after initiation. Notified when patient became abruptly hypotensive despite vasopressin, levophed 20 mcg/min, Greyson-Synephrine 300 mcg/m. He was also hypoxemic with sats in 80s despite PCV with PEEP 8 and FiO2 100%, respiratory rate in the 30s. He had decreased breath sounds bilaterally and was concerned for air trapping so removed from mechanical ventilation and bagged without improvement. Placed patient back on mechanical ventilation and provide recruitment maneuvers and increased PEEP to 12 which resulted in improvement of sats to 88% to 92%. Ordered Flolan. Discontinued isuprel and initiated epinephrine. R radial art line would not draw blood . Performed u/s guided femoral artery stick to confirm hypoxemia on ABG given poor wave form on pulse ox and PaO2 was 58. Placed new L radial art line and this resulted in ~ 30 point increase in SBP relative to prior line but patient ultimately on vasopressin, levophed 30 micrograms per minute, Greyson-Synephrine 300 micrograms per minute, epinephrine 12 mcg/min and unable to maintain target pressure (SBP in 150s). Given calcium chloride. patient with shaking movements all extremities, pupils 2mm and sluggish, no eye deviation. Rigors seemed most likely but unable to emergently rule out seizures so loaded with fosphenytoin to avoid secondary injury from seizure activity. WBC increasing and concern for HCAP so pancultured and placed on cefepime, vancomycin, azithromycin. Hydrocortisone 100 mg IV every 8 hours initiated due to concern for septic shock in a patient who has been refractory to all other above measures. Patient is to hemodynamically unstable and hypoxic for transport for neurologic imaging. Urine output has declined to 180-200 ML's per hour. Back off maintenance IV fluids to 200 ML's per hour. Bedside echo demonstrates decreased LV function with normal RV contractility and collapsible IVC suggesting ongoing maintenance fluid administration is appropriate. 10/15 additional visit: continued to deteriorate throughout the day. Seen multiple times. hypoxic on 100% fio2, flolan. required nimbex drip to maintain. repeat bedside critical care ultrasound still demonstrates severe LV dysfunction , decompressed RV, IVC more dilated than previous echo overnight, however still with respiratory variation. femoral arterial line placed with better waveform and higher pressure (likely SVR too high to allow accurate measurement of radial pressure). Pulse contour analysis without stroke volume variation, CI 3.6. SV 52mL. trialed additional albumin without improvement in hemodynamics. uop slower than before, but still significant salt wasting in the urine- sodium dropped to 125 from 132 despite already on 3% nacl infusion and aggressive sodium replacements. forced to give 23% nacl and salt tabs. declining clinically despite maximal therapy. 10/16: continues to be maximally critically ill. LV dysfunction persists. starting to get volume overloaded, but given concern for ongoing cerebral vasospasm, unable to actively diurese patient. sodium wasting persists, but uop downtrending slightly. very hypokalemic today, likely due to steroids. remains intubated, sedated, paralyzed, on flolan. CXR today appears worse with worsening airspace disease. Lactate remains slightly elevated, confirming persistent shock. 10/17: Lung infiltrates dense bilaterally, reflected in shunting and problems with oxygenation. Developed vasospasm on TCDs and required angiogram and intra- arterial verapamil again today. 10/18: SBP 160 - 170 range. FiO2 0.55. BNP > 5000. Not tolerating attempts at maintaining higher BP due to worsening heart failure. Several episodes of vasospasm. Watch daily TCDs closely. Sputum no growth. 10/19: Tmax 99.8. Currently 99. Remains on 4 vasopressors and epoprostenol 10/20: Yesterday. Returned IR for intra-arterial calcium channel jose infusion for vasospasm. Transcranial Dopplers today Still pending. Remains on significant vasopressor support. 10/21: Good response to diuresis, check BNP. TCDs pending. Heart failure remains a major problem. 10/22: CVP 21 - 22, finger tips blue, digits pale white despite high dose milrinone dilation. Greyson and vaso much reduced. Will try diltiazem gtt for digital ischemia. Urine remains > 200/hr and proximal limbs are well perfused. This digital ischemia appears to be a local phenomenon ala Raynaud's. New subcutaneous emphysema right anterior chest wall. 10/23: Old CVL removed. Fingertips remain marginal, some necrotic despite diltiazem and milrinone treatment for digital ischemia. Cardiac output > 7 liters/min and urine copious, confirming good perfusion pressure and flow. This continues to be a local phenomenon of the digits ala Raynaud's. We are trying to wean vasopressors off but are required to maintaining a cerebral perfusion pressure suitable for the treatment of aneurysmal subarachnoid bleed. Frankly, the importance of brain function eclipses fingertips. 10/24: Afebrile. Well perfused except for index finger left hand, few tips fingers right. Arms and hands warmer with resolving circumferential edema. Diltiazem and milrinone gtt continue. Greyson to 10 mics/min. 10/25: Digits are warm and well perfused except left index and right 4th fingertips; demarcated and not viable. Dry. Diltiazem and milrinone infusions continue to help reverse digital ischemia. 10/26: Forced diuresis continues and BP remains nicely elevated. Hands and digits warm aside from left index and right 4th fingertips which have demarcated. 10/27: Good response to diuretics. Perfusion pressure and documented flow excellent. Continue to wean vent. 10/28: Start SBTs. Fluid balance back toward normal. 10/29: Tolerating SBTs. Lowering sedation. Edema resolving. 10/30: Tolerating tube feeds, will taper off TPN and remove central line. Continue diuretics. 10/31: net -3L over 24h. mental status at baseline. tolerating CPAP, but does not have the mental status to protect airway. will likely need trach/peg. placement will be a problem due to lack of funding. 11/01: no changes or improvements. discussed with yesterday and she "does not want any more setbacks" and would prefer trach versus trial of extubation. I agree with her assessment. plan for trach today. placement is still a significant problem. net -2L/24h. 11/02: wbc uptrending, febrile. antonio cultured, started empiric abx today. failed SBT overnight and placed back on rate. 11/03: Tolerating CPAP today, following commands. Low-grade fever cultures pending. WBC count normal today 11/04: Remains on TPs since yesterday. Neuro exam remains stable. Follows commands weakly. Na 152 11/05: Remains off vent for 48 hours now. Sitting up in stretcher chair today. Na improved to 149. remains weak but improving 11/06: Continues to tolerate TPs well. Neuro exam unchanged. Sodium 148 today. Continues to spike intermittent fever Tmax 102.7. 11/07: Continued fevers, no leukocytosis. 11/08: Stable for replacement of bone flap. 11/09: Getting a bit excessively diuresed, will decrease lasix and convert to PO. Fingertips and toes demarcating as expected. No immediate action required except for continued diltiazem therapy. Clearly a Raynaud's type digital ischemia as peripheral perfusion and urine output indicated excellent peripheral perfusion. 11/10: Tracks with eyes today, nods to questions. Failed swallow again. 11/11: Plan for PEG, GI consulted. Bone flap replacement on hold due to blood cultures and fever. 11/12: May get PEG today, Bone flap to be replaced coming week per Dr. Perry. Afebrile no white count 11/13: Neuro exam unchanged. Na was 150 yesterday, repeat CMP pending. Left flap remains sunken 11/14: emesis overnight with ? aspiration event. no increased O2 requirement, but fever to 102.5 today. recultured. no complaints from patient. 11/15: No changes. still low suspicion for infection. Awaiting ID clearance for bone flap replacement. also awaiting placement 11/16: Placed on full ventilator support overnight for acute hypoxemic respiratory failure due to mucous plugging. Mucomyst added. Not on any sedation. Chest x-ray back to baseline-no need a bronchoscopy at this time, but will do if there is recurrent plugging. Will check sputum culture, and trach site culture 11/17: Breathing comfortably on the vent, on CPAP now. Off all sedation. We'll attempt T piece yesterday. Sodium normal 11/18: Currently tolerating TP. Patient had a few episodes of nausea vomiting. KUB shows ileus. Overnight was started on Reglan IV and when necessary Zofran. We'll keep nothing by mouth until ileus resolved. 11/19: Back on vent rate due to poor spontaneous effort. Hgb down 2 gms - looks like dilution; follow closely. VS without change. Ileus has resolved. 11/20: ABIs normal with normal pressure. Inflow satisfactory to all limbs. GI tract working well. 11/21: Tmax 99.1. Positive BM from fecal containing device. Tolerating t piece 24 hours. Tube feeds are at goal. Okay for OR from ID standpoint 11/22 currently resting in bed in no acute distress. On TP since 48 hours. Tube feeds at goal. 11/23: Resting in bed on T piece and 72 hours. Tube feeding at goals. Cleared from ID for plastics. 11/26: rapid response for massive hemoptysis. Patient rapidly reintubated through mouth and trach tube removed at same time. No bleeding from the trach stoma or above. All blood is coming from below. Bronchoscopy demonstrated large clots in both left and right mainstems. Right side clot 2 x 2 x 3 cm. Finally suctioned clear enough to inspect - no bleeding source found. Will keep on vent with PEEP 12 and heavy sedation. Plts 380,000, INR 1.0 11/27: CTA reviewed. He appears to bee bleeding from the anterior segment of the right upper lobe, which is displaced inferiorly by apical bullous disease. 11/28: remains sedated and paralyzed. still requiring active transfusions. but no longer hypoxic and bloody secretions are much less. 11/29: overnight ett became dislodged leading to hypoxia, bradycardia, PEA arrest. ~10min CPR with ROSC and reintubation. this morning, off sedation, opens eyes spontaneously but no other movements. repeat CTA chest without evidence of extravasation from area of massive hemoptysis. 11/30: Resting in bed in no acute distress. Arousable and follows commands. Tolerating tube feed. Afebrile. 12/01: Afebrile. Since 6 AM, every hour with copious amounts of bright red blood per tracheostomy/TPs. IR for possible right bronchial artery embolization today. Noted likely culprit on CTA 11/26. Hasn't had active bleeding since then. 10/20: Afebrile. Status post embolization 2 right bronchial artery yesterday. Currently old blood from tracheostomy site. Saturations 100% on 40% FiO2. Tolerating tube feeding. 12/03: Resting in bed on ventilator via tracheostomy. No new issues overnight. Hemodynamically stable. 100% saturations 12/04: Afebrile. Noted increasing edema right greater than left upper extremity. Minimal bloody secretions from tracheostomy. Currently resting in bed in no acute distress. Subjective 12/05: Afebrile. Noted to have DVT in right upper extremity including inclusive of subclavian, axillary vein. Bilateral superficial cephalic veins bilaterally. Peripheral IVs removed. Placed left IJ CVL. 12/06: Drowsy, arousable, following commands. Remains on mechanical ventilation via tracheostomy. 12/07: Remains on mech vent via tracheosotmy. Daily CPAP trials. 12/08: Opens eyes, looks around. Good respiratory effort on T-piece. Working on disposition. 12/09: On T piece during daytime, placed on C Pap with pressure support overnight. Tracheostomy tube appears to be burrowing into his skin with breakdown with neck flexion. 12/10: Tolerating extended T-piece trials. Still coughing up small clots of old blood. Objective Vital Signs Date Time Temp Pulse Resp B/P (MAP) Pulse Ox O2 Delivery O2 Flow Rate FiO2 12/10/16 06:00 65 12/10/16 04:00 98.2 15 130/60 (83) 100 12/10/16 03:56 T-piece 5.00 28 Intake and Output 12/10/16 12/10/16 12/11/16 08:00 16:00 00:00 Intake Total 691 ml Output Total 1500 ml Balance -809 ml Result Diagram: 12/09/16 0545 12/06/16 0510 Imaging Last Impressions Chest X-Ray 12/04/16 6303 Signed Impressions: Service Date/Time: Sunday, December 04, 2016 18:55 - CONCLUSION: 1. Placement of left central line tip in superior vena cava. No pneumothorax. Mild basilar airspace disease. Small right effusion. Gurwinder Root MD Upper Extremity Ultrasound 12/04/16 0000 Signed Impressions: Service Date/Time: Sunday, December 04, 2016 15:37 - CONCLUSION: 1. Positive for occlusive deep venous thrombosis in the right axillary and subclavian vein. Occlusive superficial thrombus in bilateral cephalic veins. Gurwinder Root MD Angiography 12/01/16 Signed Impressions: Service Date/Time: November 14:02 - CONCLUSION: 1. Right side up on her hemorrhage with angiography of the right bronchial artery revealing no source of active hemorrhage. Empiric embolization was performed. Santos Crockett Jr., MD Chest CT 11/28/16 Signed Impressions: Service Date/Time: Tuesday, November 29, 2016 05:13 - CONCLUSION: 1. Patchy alveolar disease characteristic of edema or pneumonia. 2. Severe emphysema 3. Gastrojejunostomy tube looped in the stomach Harvey Morejon MD Chest/Thorax CTA 11/26/16 Signed Impressions: Service Date/Time: Saturday, November 26, 2016 20:18 - CONCLUSION: 1. Extensive filling defects within the right central bronchial tree characteristic of endobronchial hemorrhage. 2. Consolidating airspace disease in the right upper lobe and right lower lobe characteristic of hemorrhage and post obstructive lung consolidation. 3. Right bronchial artery is identified extending to the central right bronchial region 4. Advanced COPD. Nasir Amanda MD Abdomen X-Ray 11/19/1600 Signed Impressions: Service Date/Time: Saturday, November 19, 2016 02:44 - CONCLUSION: Unchanged bowel gas pattern potentially relating to an ileus. Santos Crockett Jr., MD Transcranial Doppler Study Complete 10/20/16 0600 Signed Impressions: Service Date/Time: October 07:54 - CONCLUSION: Slight interval elevation of flow velocity measurements and ratio on the left Yosvany Polk MD Liver Ultrasound 10/19/16 Signed Impressions: Service Date/Time: Wednesday, October 19, 2016 11:20 - CONCLUSION: 1. Sludge filled gallbladder with thickened wall. 2. Moderate size bilateral pleural effusions and mild upper abdominal ascites. Santos Vazquez MD Cerebral Arteriogram 10/19/16 Signed Impressions: Service Date/Time: Wednesday, October 19, 2016 12:47 - CONCLUSION: Uncomplicated cerebral arteriography with spasmolytic therapy as described in detail above. Yosvany Polk MD Head CT 10/17/16 Signed Impressions: Service Date/Time: Monday, October 17, 2016 15:06 - CONCLUSION: Ventricles are slightly larger without ventriculostomy. Edema in the left hemisphere the brain herniating through the operative site. Remington Woodward MD FACR Infusion Non-thrombolysis 10/14/16 1103 Signed Impressions: Service Date/Time: Friday, October 14, 2016 10:21 - CONCLUSION: 1. Uncomplicated infusion for spasmolysis Harvey Morejon MD Neck CTA 10/07/16 0000 Signed Impressions: Service Date/Time: Friday, October 07, 2016 15:03 - CONCLUSION: 1. Mild carotid bulb atherosclerotic calcification bilaterally. However, no significant stenosis is present in either internal carotid artery. 2. Paranasal sinus mucoperiosteal thickening. 3. Please refer to brain CTA report for description of the intracranial findings. Yosvany Ramirez MD Head CTA 10/07/16 0000 Signed Impressions: Service Date/Time: Friday, October 07, 2016 15:03 - CONCLUSION: 1. 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 2. Large left subdural hematoma measuring 1.3 cm in depth with a significant, 1.6 cm left to right subfalcine shift. Joni Shelton MD Objective Remarks GENERAL: 56-year-old male. Currently on ventilator via tracheostomy HEAD: Status post left craniectomy. Left flap sunken, Incision healing well EYES: 3 mm bilaterally and reactive NECK: trach site noted with skin breakdown and inferior margin. left IJ CVL clean dry and intact CARDIOVASCULAR: RRR. S1, S2 no S4. Without murmur RESPIRATORY: Scattered rhonchi and mobile secretions. Few bloody secretions persist. GASTROINTESTINAL: Abdomen soft, non-tender, nondistended. No guarding. MUSCULOSKELETAL: Ischemic changes worst to left index finger tip, right 4th fingertip, and majority of R toes. Demarcating, dry. Right upper extremity 2+ edema. Left upper extremity 1+ edema. NEURO EXAM: Cranial nerves II through XII grossly intact.Right UE weaker than left, follows commands x4. SKIN: Stage IV decubitus ulcer 4 x 2 bilateral sacral. Maculopapular rash on feet bilaterally. Procedures 10/13 Four-vessel cerebral angiography with verapamil treatment of vasospasm Date of Insertion: Dec 04, 2016 Line: Central Venous Catheter Side: Left Location: Internal, Jugular A/P Assessment and Plan Neuro/Psych Status post left frontotemporal parietal craniectomy 10/08 for evacuation subdural hematoma/duraplasty Left subdural hematoma - 1.3 cm with 1.6 shift left to right Subarachnoid hemorrhage Alvarado and Rodriguez 5, Carroll grade 4 - left P-comm status post 4 coiling 10/08 Hypoxic-Ischemic Encephalopathy - Nimodipine completed 21 days. Initiated 10/13. - Levetiracetam 500 mg per tube q12h. - 10/13 and 10/14 and 10/17) 10/19 left MCA territory vasospasm, status post successful verapamil treatment by IR with 20 mg verapamil - 10/17 CT brain - less hemisphere edema with herniation through left craniotomy site, now improved. - Dr. Perry/neurosurgery. Plan to replace bone flap okayed by infectious disease. - frequent neuro checks. Respiratory: Acute hypoxic Respiratory failure secondary to mucous plugging Possible healthcare associated pneumonia ARDS- resolved Noncardiogenic/neurogenic pulmonary edema- resolved. Chronic respiratory failure requiring tracheostomy Massive Hemoptysis Aspiration pneumonitis -- PRVC /02/17/39 - Ventilator bundle. Daily CPAP trials. -- Albuterol/ipratropium aerosols every 6 hours with albuterol aerosols every [address] angiogram chest/neck revealed right centrilobular bleeding likely source right bronchial artery. Repeat CT chest 11/29/no visualization of active bleeding. -- Follow-up on sputum culture -- s/p Trach Dr. Sullivan/Dr. Collazo 11/01 #8 Shiley. --Redo trach 11/[address] Crockett 12/01 - embolization of right bronchial artery by IR Continue CPAP trials / T-piece Cardiovascular: Septic and cardiogenic shock- resolved. LV dysfunction secondary to SAH - persistent, now resolved Elevated troponin- secondary to SAH, unlikely to be ACS. - resolved. Pulmonary hypertension s/p PEA arrest 11/28 after ett dislodgement, hypoxic arrest Continue free water 200mL per tube q6h. Echocardiogram 10/14/16 revealed EF 40-45%. Septal hypokinesis. Moderate MR. Severe pulmonary hypertension with pulmonary artery pressures estimated 61 mmHg Limited Echo 11/06: LVEF 60-65%, Trivial mitral and tricuspid regurgitation, No vegetations noted. Continue diltiazem's 90 mg by mouth every 6 hours and furosemide 20 mg daily currently off vasopressors. Renal: Cerebral Salt Wasting/SIADH-resolved now hypernatremic Strict I/Os. See FEN below. Creatinine currently within normal limits -> resolved. Monitor urine output FEN/GI: Ileus Elevated transaminases Hyperammonemia - Currently on Glucerna 1.5 goal 60 cc an hour. - free water per G tube - ICU electrolyte protocol. - Lansoprazole 30 mg by tube daily for GI prophylaxis - Continue bowel regimen - Continue PEG feeding. s/p PEG 11/12/16 Heme/ID: Septic Shock- resolved. Possible HCAP New Fever, leukocytosis, staph epi bacteremia Right occlusive subclavian, axillary and bilateral superficial cephalic thrombus - limited Echo to evaluate vegetation-neg. ID following - Follow-up on sputum culture, trach site culture - Digital Ischemia with necrosis, conservative management - s/p Diltiazem and milrinone infusions - Digits have demarcated, allow auto amputation. Cardizem PO currently and 90 mg every 6 hours (for digital ischemia, Raynaud's) Continue bacitracin twice a day to affected areas Peripheral IVs discontinued. Place central line for IV access. We'll need to be started on systemic anticoagulation at some point however with recent embolization for hemoptysis holding full anticoagulation at this time. Pertinent cultures 10/15 - blood cultures - 1 out of 4 anaerobic gram-negative cocci possibly Veillonella 10/15 - sputum - beta strep not A, strep species 10/19 cultures NG 10/21 1/4 bottles blood cultures coag negative staph. Culture 11/01. coag neg stah / bottles 11/16 sputum in trach site cultures negative s/p levofloxacin x 7 days end 11/15/16 Fluconazole discontinued per infectious disease Endocrine: Presumed Adrenal Insufficiency Discontinued fludrocortisone 10/18. Sliding-scale insulin with NovoLog -Accu-Cheks every 4 hours to maintain euglycemia MSK: Stage IV bilateral sacral decubitus ulcers Xeroform/ABD secured with paper tape change daily PT evaluate and treat Ultrasound Doppler venous bilateral upper extremities today. Prophylaxis: GI Prophylaxis - lansoprazole DVT Prophylaxis-- SCDs, d/c heparin subcutaneous hemoptysis Lines: - 10/14 right SC TLC, removed 10/22 - 10/14 right radial art line, removed 10/14 - 10/15 left radial art line, removed 10/16 - 10/22 left groin triple lumen placed, d/c 10/30 - d/c ike. Overall impression: Source of hemoptysis appears to have been spontaneous from the right lung, now stopped for several days. Continue to work on disposition. Rodriguez Collazo MD Dec 10, 2016 07:56
[2016-12-10] MEDS: levETIRAcetam 500 MG/5 ML UDC NG SCH ×2 (08:52→21:31)
[2016-12-10] MEDS: LANSOPRAZOLE SOLUTAB 30 MG TAB NG SCH (08:53)
[2016-12-10] MEDS: LACTOBACILLUS ACIDOPHILUS TAB PO SCH ×3 (08:54→17:45)
[2016-12-10] MEDS: ARTIFICIAL TEARS OPTH SOLN 15 ML BTL EACH EYE SCH ×3 (09:24→17:44)
[2016-12-10] MEDS: BENEPROTEIN POWDER 1 PACK G-TUBE SCH ×6 (09:24→17:45)
[2016-12-10] MEDS: BACITRACIN TOP OINT 15 GM TUBE TOPICAL SCH ×2 (09:24→21:00)
[2016-12-10] MEDS: COLLAGENASE OINT 30 GM TUBE TOPICAL SCH (09:24)
[2016-12-10] MEDS: CHLORHEXIDINE 0.12% (ORAL KIT) 15 ML CUP MT SCH ×2 (09:25→20:00)
[2016-12-10] MEDS: POVIDONE IODINE 10% OINT 30 GM TUBE TOPICAL SCH (09:25)
[2016-12-10] MEDS: SODIUM CHLORIDE 0.9% FLUSH 10 ML FLUSH IV FLUSH SCH ×3 (09:25→21:00)
--- NOTE | 2016-12-10 16:29 | HHI.PR ---
Subjective Remarks 56 YOWM with ICH, Crainiotomy, RF,Trach On T-Tube Small amount of secretions Awake, follows commands Objective Vital Signs Vital Signs Date Time Temp Pulse Resp B/P (MAP) Pulse Ox O2 Delivery O2 Flow Rate FiO2 12/10/16 14:00 66 12/10/16 12:00 98.2 66 18 120/55 (76) 100 12/10/16 12:00 66 12/10/16 10:00 66 12/10/16 08:00 66 12/10/16 08:00 97.9 66 15 137/64 (88) 100 12/10/16 06:00 65 12/10/16 04:00 63 12/10/16 04:00 98.2 63 15 130/60 (83) 100 12/10/16 03:56 100 T-piece 5.00 28 12/10/16 00:00 60 12/10/16 00:00 60 16 155/65 (95) 100 12/09/16 22:00 59 12/09/16 20:44 98 T-piece 6.00 28 12/09/16 20:00 98.8 64 19 154/64 (94) 100 12/09/16 20:00 58 12/09/16 18:00 67 I/O 12/09/16 12/09/16 12/09/16 12/10/16 12/10/16 12/10/16 07:00 15:00 23:00 07:00 15:00 23:00 Intake Total 742 ml 200 ml 733 ml 691 ml 240 ml Output Total 2050 ml 1750 ml 1500 ml 1300 ml Balance -1308 ml 200 ml -1017 ml -809 ml -1060 ml Tube Feeding 622 ml 553 ml 571 ml Other 120 ml 200 ml 180 ml 120 ml 240 ml Output Urine Total 1850 ml 1700 ml 1450 ml 1000 ml Stool Total 200 ml 50 ml 50 ml 300 ml Result Diagram: 12/09/16 0545 12/06/16 0510 Objective Remarks GENERAL: MBMN WM mild sob SKIN: Warm and dry. HEAD: Normocephalic. EYES: No scleral icterus. No injection or drainage. NECK: Supple, trachea midline. No JVD or lymphadenopathy. has Trach CARDIOVASCULAR: Regular rate and rhythm without murmurs, gallops, or rubs. RESPIRATORY: Breath sounds equal bilaterally. No accessory muscle use. GASTROINTESTINAL: Abdomen soft, non-tender, nondistended. has PEG Tube MUSCULOSKELETAL: No cyanosis, or edema. BACK: Nontender without obvious deformity. No CVA tenderness. A/P Assessment and Plan Resp Failure S/P Trach S/O ICH, crainiotomy HTN PLAN: Trach collar Suction prn TF clonidine for BP controll. Wagner Long MD Dec 10, 2016 16:29
[2016-12-10] MEDS: MELATONIN 5 MG TAB PO SCH (21:31)
[2016-12-11] VITALS (14 sets, daily range): BP systolic 108–144; BP diastolic 55–71; PULSE 60–69; RESP 17–20; TEMP 98–98.9; O2SAT 93–100
[2016-12-11] MEDS: DILTIAZEM HCL 90 MG TAB PO SCH ×4 (00:04→18:58)
[2016-12-11] MEDS: METOCLOPRAMIDE HCL 10 MG/2 ML VIAL IV PUSH SCH ×3 (02:58→18:58)
[2016-12-11] MEDS: cloNIDine HCL 0.1 MG TAB PO SCH ×3 (02:58→18:58)
[2016-12-11] MEDS: CHLORHEXIDINE GLUCONATE 2 % 1 PACK (2 CLOTHS) TOP SCH (03:52)
[2016-12-11] MEDS: CHLORHEXIDINE 0.12% (ORAL KIT) 15 ML CUP MT SCH ×2 (07:30→20:44)
[2016-12-11] MEDS: BACITRACIN TOP OINT 15 GM TUBE TOPICAL SCH ×2 (09:11→20:44)
[2016-12-11] MEDS: COLLAGENASE OINT 30 GM TUBE TOPICAL SCH (09:11)
[2016-12-11] MEDS: ARTIFICIAL TEARS OPTH SOLN 15 ML BTL EACH EYE SCH ×3 (09:11→18:58)
[2016-12-11] MEDS: BENEPROTEIN POWDER 1 PACK G-TUBE SCH ×6 (09:12→18:58)
[2016-12-11] MEDS: LANSOPRAZOLE SOLUTAB 30 MG TAB NG SCH (09:13)
[2016-12-11] MEDS: SODIUM CHLORIDE 0.9% FLUSH 10 ML FLUSH IV FLUSH SCH ×3 (09:13→20:44)
[2016-12-11] MEDS: levETIRAcetam 500 MG/5 ML UDC NG SCH ×2 (09:13→20:44)
[2016-12-11] MEDS: LACTOBACILLUS ACIDOPHILUS TAB PO SCH ×3 (09:14→18:58)
[2016-12-11] MEDS: POVIDONE IODINE 10% OINT 30 GM TUBE TOPICAL SCH (09:14)
--- NOTE | 2016-12-11 15:24 | HHI.PR ---
Subjective Remarks 56 YOWM with ICH, Crainiotomy, RF,Trach On T-Tube Small amount of secretions Awake, follows commands No new complaint Objective Vital Signs Vital Signs Date Time Temp Pulse Resp B/P (MAP) Pulse Ox O2 Delivery O2 Flow Rate FiO2 12/11/16 12:00 98.0 60 19 117/65 (82) 100 12/11/16 12:00 60 12/11/16 10:58 93 T-piece 5.00 28 12/11/16 10:00 60 12/11/16 08:00 98.2 63 18 108/55 (72) 100 12/11/16 08:00 63 12/11/16 06:00 63 12/11/16 04:00 69 12/11/16 04:00 98.0 69 18 122/61 (81) 100 12/11/16 02:00 66 12/11/16 00:00 68 12/11/16 00:00 98.2 68 17 144/71 (95) 100 12/10/16 22:00 66 12/10/16 20:00 68 12/10/16 20:00 98.2 68 18 126/65 (85) 100 12/10/16 18:00 66 12/10/16 16:00 58 12/10/16 16:00 98.2 58 17 136/67 (90) 100 I/O 12/10/16 12/10/16 12/10/16 12/11/16 12/11/16 12/11/16 07:00 15:00 23:00 07:00 15:00 23:00 Intake Total 691 ml 240 ml 120 ml 1412 ml 683 ml Output Total 1500 ml 1300 ml 1750 ml 750 ml Balance -809 ml -1060 ml 120 ml -338 ml -67 ml Tube Feeding 571 ml 1312 ml 443 ml Other 120 ml 240 ml 120 ml 100 ml 240 ml Output Urine Total 1450 ml 1000 ml 1650 ml 750 ml Stool Total 50 ml 300 ml 100 ml Result Diagram: 12/09/16 0545 Objective Remarks GENERAL: MBMN WM mild sob SKIN: Warm and dry. HEAD: Normocephalic. EYES: No scleral icterus. No injection or drainage. NECK: Supple, trachea midline. No JVD or lymphadenopathy. has Trach CARDIOVASCULAR: Regular rate and rhythm without murmurs, gallops, or rubs. RESPIRATORY: Breath sounds equal bilaterally. No accessory muscle use. GASTROINTESTINAL: Abdomen soft, non-tender, nondistended. has PEG Tube MUSCULOSKELETAL: No cyanosis, or edema. BACK: Nontender without obvious deformity. No CVA tenderness. A/P Assessment and Plan Resp Failure S/P Trach S/O ICH, crainiotomy HTN PLAN: Trach collar Suction prn TF clonidine for BP controll. DR Wilson will FU in AM Wagner Long MD Dec 11, 2016 15:24
[2016-12-11] MEDS: MELATONIN 5 MG TAB PO SCH (20:44)
[2016-12-12] VITALS (15 sets, daily range): BP systolic 110–124; BP diastolic 60–72; PULSE 61–71; RESP 16–23; TEMP 98.4–99; O2SAT 97–100
[2016-12-12] MEDS: DILTIAZEM HCL 90 MG TAB PO SCH ×5 (00:19→23:51)
[2016-12-12] MEDS: CHLORHEXIDINE GLUCONATE 2 % 1 PACK (2 CLOTHS) TOP SCH (02:28)
[2016-12-12] MEDS: METOCLOPRAMIDE HCL 10 MG/2 ML VIAL IV PUSH SCH ×2 (02:28→09:09)
[2016-12-12] MEDS: cloNIDine HCL 0.1 MG TAB PO SCH ×3 (02:28→17:55)
[2016-12-12] MEDS: BENEPROTEIN POWDER 1 PACK G-TUBE SCH ×6 (09:00→17:55)
[2016-12-12] MEDS: ARTIFICIAL TEARS OPTH SOLN 15 ML BTL EACH EYE SCH ×3 (09:07→17:04)
[2016-12-12] MEDS: CHLORHEXIDINE 0.12% (ORAL KIT) 15 ML CUP MT SCH ×2 (09:07→21:18)
[2016-12-12] MEDS: levETIRAcetam 500 MG/5 ML UDC NG SCH ×2 (09:08→21:18)
[2016-12-12] MEDS: LANSOPRAZOLE SOLUTAB 30 MG TAB NG SCH (09:08)
[2016-12-12] MEDS: LACTOBACILLUS ACIDOPHILUS TAB PO SCH ×3 (09:08→17:55)
[2016-12-12] MEDS: SODIUM CHLORIDE 0.9% FLUSH 10 ML FLUSH IV FLUSH SCH ×3 (09:08→21:20)
[2016-12-12] MEDS: COLLAGENASE OINT 30 GM TUBE TOPICAL SCH (09:09)
[2016-12-12] MEDS: BACITRACIN TOP OINT 15 GM TUBE TOPICAL SCH ×2 (09:09→21:20)
[2016-12-12] MEDS: POVIDONE IODINE 10% OINT 30 GM TUBE TOPICAL SCH (09:09)
--- NOTE | 2016-12-12 15:12 | HHI.PR ---
Subjective Remarks on TBAR ALERT NO DISTRESS Objective Vital Signs Date Time Temp Pulse Resp B/P (MAP) Pulse Ox O2 Delivery O2 Flow Rate FiO2 12/12/16 14:00 65 12/12/16 12:00 98.5 64 22 124/72 (89) 100 12/12/16 12:00 64 12/12/16 10:59 97 40 12/12/16 10:00 67 12/12/16 08:00 65 12/12/16 08:00 98.4 62 23 122/63 (82) 100 12/12/16 07:58 100 T-piece 28 12/12/16 06:00 61 12/12/16 04:00 62 12/12/16 04:00 99.0 62 18 110/62 (78) 98 12/12/16 02:00 67 12/12/16 00:00 98.9 71 19 111/60 (77) 100 12/12/16 00:00 71 12/11/16 22:00 63 12/11/16 20:55 100 T-piece 28 12/11/16 20:00 66 12/11/16 20:00 98.9 66 17 109/59 (76) 100 12/11/16 18:00 62 12/11/16 16:00 98.5 62 20 108/55 (72) 100 12/11/16 16:00 62 I/O 12/11/16 12/11/16 12/11/16 12/12/16 12/12/16 12/12/16 07:00 15:00 23:00 07:00 15:00 23:00 Intake Total 1412 ml 683 ml 424 ml 651 ml Output Total 1750 ml 750 ml 750 ml 1300 ml Balance -338 ml -67 ml -326 ml -649 ml Tube Feeding 1312 ml 443 ml 304 ml 531 ml Other 100 ml 240 ml 120 ml 120 ml Output Urine Total 1650 ml 750 ml 650 ml 1000 ml Stool Total 100 ml 100 ml 300 ml Result Diagram: 12/09/16 0545 Objective Remarks GENERAL: SKIN: Warm and dry. HEAD: Atraumatic. Normocephalic. EYES: Pupils equal and round. No scleral icterus. No injection or drainage. ENT: No nasal bleeding or discharge. Mucous membranes pink and moist. NECK: Trachea midline. No JVD. CARDIOVASCULAR: Regular rate and rhythm. RESPIRATORY: No accessory muscle use. Clear to auscultation. Breath sounds equal bilaterally. TRACHEOSTOMY IN PLACE GASTROINTESTINAL: Abdomen soft, non-tender, nondistended. Hepatic and splenic margins not palpable. MUSCULOSKELETAL: Extremities without clubbing, cyanosis, or edema. No obvious deformities. NEUROLOGICAL: Awake and alert. No obvious cranial nerve deficits. Motor grossly within normal limits. Five out of 5 muscle strength in the arms and legs. Normal speech. PSYCHIATRIC: Appropriate mood and affect; insight and judgment normal. Assessment and Plan Assessment and Plan RESP FAILURE, ON VENT SUPPORT NOW ON BIPAP S/P IC BLEED CXRAY 12/04 STABLE NO ACUTE ABNORMALITY PLAN WEAN TOLERATED ANTIBX PER ID PULMONARY TOILET REMOVE TRACH WHEN POSSIBLE Katie Wilson MD Dec 12, 2016 15:12
--- NOTE | 2016-12-12 16:39 | HHI.PR ---
Subjective Remarks patient is awake and alert tolerating tube feedings on tracheostomy 28% tno complains of pain lots of stools- xc diff negative Objective Vitals Vital Signs Date Time Temp Pulse Resp B/P (MAP) Pulse Ox O2 Delivery O2 Flow Rate FiO2 12/12/16 16:00 66 12/12/16 16:00 98.4 64 22 119/71 (87) 98 12/12/16 14:00 65 12/12/16 12:00 98.5 64 22 124/72 (89) 100 12/12/16 12:00 64 12/12/16 10:59 97 40 12/12/16 10:00 67 12/12/16 08:00 65 12/12/16 08:00 98.4 62 23 122/63 (82) 100 12/12/16 07:58 100 T-piece 28 12/12/16 06:00 61 12/12/16 04:00 62 12/12/16 04:00 99.0 62 18 110/62 (78) 98 12/12/16 02:00 67 12/12/16 00:00 98.9 71 19 111/60 (77) 100 12/12/16 00:00 71 12/11/16 22:00 63 12/11/16 20:55 100 T-piece 28 12/11/16 20:00 66 12/11/16 20:00 98.9 66 17 109/59 (76) 100 12/11/16 18:00 62 I/O 12/11/16 12/11/16 12/11/16 12/12/16 12/12/16 12/12/16 07:00 15:00 23:00 07:00 15:00 23:00 Intake Total 1412 ml 683 ml 424 ml 651 ml Output Total 1750 ml 750 ml 750 ml 1300 ml Balance -338 ml -67 ml -326 ml -649 ml Tube Feeding 1312 ml 443 ml 304 ml 531 ml Other 100 ml 240 ml 120 ml 120 ml Output Urine Total 1650 ml 750 ml 650 ml 1000 ml Stool Total 100 ml 100 ml 300 ml Result Diagram: 12/09/16 0545 Imaging Last Impressions Chest X-Ray 12/04/16 979 Signed Impressions: Service Date/Time: Sunday, December 04, 2016 18:55 - CONCLUSION: 1. Placement of left central line tip in superior vena cava. No pneumothorax. Mild basilar airspace disease. Small right effusion. Gurwinder Root MD Upper Extremity Ultrasound 12/04/16 0000 Signed Impressions: Service Date/Time: Sunday, December 04, 2016 15:37 - CONCLUSION: 1. Positive for occlusive deep venous thrombosis in the right axillary and subclavian vein. Occlusive superficial thrombus in bilateral cephalic veins. Gurwinder Root MD Angiography 12/01/16 0000 Signed Impressions: Service Date/Time: November 14:02 - CONCLUSION: 1. Right side up on her hemorrhage with angiography of the right bronchial artery revealing no source of active hemorrhage. Empiric embolization was performed. Santos Crockett Jr., MD Chest CT 11/28/16 0000 Signed Impressions: Service Date/Time: Tuesday, November 29, 2016 05:13 - CONCLUSION: 1. Patchy alveolar disease characteristic of edema or pneumonia. 2. Severe emphysema 3. Gastrojejunostomy tube looped in the stomach Harvey Morejon MD Chest/Thorax CTA 11/26/16 Signed Impressions: Service Date/Time: Saturday, November 26, 2016 20:18 - CONCLUSION: 1. Extensive filling defects within the right central bronchial tree characteristic of endobronchial hemorrhage. 2. Consolidating airspace disease in the right upper lobe and right lower lobe characteristic of hemorrhage and post obstructive lung consolidation. 3. Right bronchial artery is identified extending to the central right bronchial region 4. Advanced COPD. Nasir Amanda MD Abdomen X-Ray 11/19/16 0600 Signed Impressions: Service Date/Time: Saturday, November 19, 2016 02:44 - CONCLUSION: Unchanged bowel gas pattern potentially relating to an ileus. Santos Crockett Jr., MD Transcranial Doppler Study Complete 10/20/16 06 Signed Impressions: Service Date/Time: October 07:54 - CONCLUSION: Slight interval elevation of flow velocity measurements and ratio on the left Yosvany Polk MD Liver Ultrasound 10/19/16 Signed Impressions: Service Date/Time: Wednesday, October 19, 2016 11:20 - CONCLUSION: 1. Sludge filled gallbladder with thickened wall. 2. Moderate size bilateral pleural effusions and mild upper abdominal ascites. Santos Vazquez MD Cerebral Arteriogram 10/19/16 Signed Impressions: Service Date/Time: Wednesday, October 19, 2016 12:47 - CONCLUSION: Uncomplicated cerebral arteriography with spasmolytic therapy as described in detail above. Yosvany Polk MD Head CT 10/17/16 0000 Signed Impressions: Service Date/Time: Monday, October 17, 2016 15:06 - CONCLUSION: Ventricles are slightly larger without ventriculostomy. Edema in the left hemisphere the brain herniating through the operative site. Remington Woodward MD FACR Infusion Non-thrombolysis 10/14/16 1103 Signed Impressions: Service Date/Time: Friday, October 14, 2016 10:21 - CONCLUSION: 1. Uncomplicated infusion for spasmolysis Harvey Morejon MD Neck CTA 10/07/16 0000 Signed Impressions: Service Date/Time: Friday, October 07, 2016 15:03 - CONCLUSION: 1. Mild carotid bulb atherosclerotic calcification bilaterally. However, no significant stenosis is present in either internal carotid artery. 2. Paranasal sinus mucoperiosteal thickening. 3. Please refer to brain CTA report for description of the intracranial findings. Yosvany Ramirez MD Head CTA 10/07/16 0000 Signed Impressions: Service Date/Time: Friday, October 07, 2016 15:03 - CONCLUSION: 1. 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 2. Large left subdural hematoma measuring 1.3 cm in depth with a significant, 1.6 cm left to right subfalcine shift. Joni Shelton MD Objective Remarks awake and alert, oriented x [address]- 28% regular rhythm abdomen- soft PEG in place, site dry no scrotal swelling, condom catheter in place moves all extrmeities spontaneously' all toes with digital ischemia, left 2nd finger and right ringer finger with distal digit ischemia bilateral radial and DP,PT ++ stage 3 decubitus ulcer Procedures 10/13 Four-vessel cerebral angiography with verapamil treatment of vasospasm Date of Insertion: Dec 04, 2016 Line: Central Venous Catheter Side: Left Location: Internal, Jugular A/P Problem List: (1) Subarachnoid hemorrhage due to ruptured aneurysm ICD Code: I60.8 - Other nontraumatic subarachnoid hemorrhage (2) Subdural hematoma ICD Code: I62.00 - Nontraumatic subdural hemorrhage, unspecified (3) Intracranial aneurysm ICD Code: I67.1 - Cerebral aneurysm, nonruptured (4) Respiratory failure ICD Code: J96.90 - Respiratory failure, unspecified, unspecified whether with hypoxia or hypercapnia Status: Acute Assessment and Plan 56 years old male Status post left frontotemporal parietal craniectomy 10/08 for evacuation subdural hematoma/duraplasty Left subdural hematoma - 1.3 cm with 1.6 shift left to right Subarachnoid hemorrhage Alvarado and Rodriguez 5, Carroll grade 4 - left P-comm status post 4 coiling 10/08 Hypoxic-Ischemic Encephalopathy - Nimodipine completed 21 days. Initiated 10/13. - Levetiracetam 500 mg per tube q12h. - 10/13 and 10/14 and 10/17) 10/19 left MCA territory vasospasm, status post successful verapamil treatment by IR with 20 mg verapamil - 10/17 CT brain - less hemisphere edema with herniation through left craniotomy site, now improved. - Dr. Perry/neurosurgery. Plan to replace bone flap okayed by infectious disease. - frequent neuro checks. - neurologically stable and doing well Acute hypoxic Respiratory failure secondary to mucous plugging- Resolved Possible healthcare associated pneumonia ARDS- resolved Noncardiogenic/neurogenic pulmonary edema- resolved. Chronic respiratory failure requiring tracheostomy Massive Hemoptysis - resolved Aspiration pneumonitis -- Tolerating T piece since 12/09 at 38% -- Albuterol/ipratropium aerosols every 6 hours with albuterol aerosols every 2 hours for Dyspnea. - Dr. Wilson ff- plan is to downsize tube and probably considering tracheostomy removal CT angiogram chest/neck revealed right centrilobular bleeding likely source right bronchial artery. Repeat CT chest 11/29/no visualization of active bleeding. -- Follow-up on sputum culture -- s/p Trach Dr. Sullivan/Dr. Collazo 11/01 #8 Shiley. --Redo trach 11/[address] Crockett 12/01 - embolization of right bronchial artery by IR- no further bleeding from tracheostomy Continue CPAP trials / T-piece Cardiovascular: Septic and cardiogenic shock- resolved. LV dysfunction secondary to SAH - persistent, now resolved Elevated troponin- secondary to SAH, unlikely to be ACS. - resolved. Pulmonary hypertension s/p PEA arrest 11/28 after ett dislodgement, hypoxic arrest Continue free water 200mL per tube q6h. Echocardiogram 10/14/16 revealed EF 40-45%. Septal hypokinesis. Moderate MR. Severe pulmonary hypertension with pulmonary artery pressures estimated 61 mmHg Limited Echo 11/06: LVEF 60-65%, Trivial mitral and tricuspid regurgitation, No vegetations noted. Continue diltiazem's 90 mg by mouth every 6 hours and furosemide 20 mg daily currently off vasopressors. Renal: Cerebral Salt Wasting/SIADH-resolved now hypernatremic Strict I/Os. See FEN below. Creatinine currently within normal limits -> resolved. Monitor urine output FEN/GI: Ileus- now with diarrheea- C diff negative- probably from TF Elevated transaminases Hyperammonemia - Currently on Glucerna 1.5 goal 60 cc an hour. - free water per G tube - ICU electrolyte protocol. - Lansoprazole 30 mg by tube daily for GI prophylaxis - Continue bowel regimen - Continue PEG feeding. s/p PEG 11/12/16 - speech reconsult for swallowing re eval Heme/ID: Septic Shock- resolved. Possible HCAP New Fever, leukocytosis, staph epi bacteremia Right occlusive subclavian, axillary and bilateral superficial cephalic thrombus - limited Echo to evaluate vegetation-neg. ID following - Follow-up on sputum culture, trach site culture- no growth - Digital Ischemia with necrosis involving all toes and left 2nd finger and right ringer finger- stable, conservative management - s/p Diltiazem and milrinone infusions - Digits have demarcated, allow auto amputation. Cardizem PO currently and 90 mg every 6 hours (for digital ischemia, Raynaud's) Continue bacitracin twice a day to affected areas Peripheral IVs discontinued. Place central line for IV access. We'll need to be started on systemic anticoagulation at some point however with recent embolization for hemoptysis holding full anticoagulation at this time. Pertinent cultures 10/15 - blood cultures - 1 out of 4 anaerobic gram-negative cocci possibly Veillonella 10/15 - sputum - beta strep not A, strep species 10/19 cultures NG 10/21 1/4 bottles blood cultures coag negative staph. Culture 11/01. coag neg stah / bottles 11/16 sputum in trach site cultures negative s/p levofloxacin x 7 days end 11/15/16 Fluconazole discontinued per infectious disease Stage 3 sacral ulcer -wound care team ff will get speech therapy to do another swallowing evaluation tomorrow DC Reglan Problem Qualifiers (1) Respiratory failure: Qualified Codes: J96.00 - Acute respiratory failure, unspecified whether with hypoxia or hypercapnia Melissa Washington MD Dec 12, 2016 16:39
[2016-12-12] MEDS: MELATONIN 5 MG TAB PO SCH (21:18)
[2016-12-13] VITALS (15 sets, daily range): BP systolic 111–128; BP diastolic 62–67; PULSE 60–90; RESP 17–22; TEMP 98.3–98.6; O2SAT 99–100
[2016-12-13] MEDS: cloNIDine HCL 0.1 MG TAB PO SCH ×3 (02:22→18:00)
[2016-12-13 04:52] LABS: BICARBONATE 29.4 MEQ/L (21.0-32.0); POTASSIUM 4.4 MEQ/L (3.5-5.1)
[2016-12-13] MEDS: CHLORHEXIDINE GLUCONATE 2 % 1 PACK (2 CLOTHS) TOP SCH (05:59)
[2016-12-13] MEDS: DILTIAZEM HCL 90 MG TAB PO SCH ×4 (06:00→22:08)
[2016-12-13] MEDS: BENEPROTEIN POWDER 1 PACK G-TUBE SCH ×6 (09:00→18:05)
[2016-12-13] MEDS: SODIUM CHLORIDE 0.9% FLUSH 10 ML FLUSH IV FLUSH SCH ×3 (09:00→22:08)
[2016-12-13] MEDS: ARTIFICIAL TEARS OPTH SOLN 15 ML BTL EACH EYE SCH ×3 (09:00→18:00)
[2016-12-13] MEDS: CHLORHEXIDINE 0.12% (ORAL KIT) 15 ML CUP MT SCH ×2 (09:20→22:08)
[2016-12-13] MEDS: LANSOPRAZOLE SOLUTAB 30 MG TAB NG SCH (09:21)
[2016-12-13] MEDS: LACTOBACILLUS ACIDOPHILUS TAB PO SCH ×3 (09:21→18:06)
[2016-12-13] MEDS: levETIRAcetam 500 MG/5 ML UDC NG SCH ×2 (09:23→22:08)
[2016-12-13] MEDS: BACITRACIN TOP OINT 15 GM TUBE TOPICAL SCH ×2 (09:50→22:10)
[2016-12-13] MEDS: COLLAGENASE OINT 30 GM TUBE TOPICAL SCH (09:52)
[2016-12-13] MEDS: POVIDONE IODINE 10% OINT 30 GM TUBE TOPICAL SCH (09:53)
--- NOTE | 2016-12-13 15:52 | HHI.PR ---
Subjective Remarks on TBAR ALERT NO DISTRESS Objective Vital Signs Date Time Temp Pulse Resp B/P (MAP) Pulse Ox O2 Delivery O2 Flow Rate FiO2 12/13/16 14:39 68 12/13/16 12:00 67 22 115/62 (79) 100 12/13/16 12:00 67 12/13/16 10:00 64 12/13/16 08:11 60 22 115/62 (79) 100 12/13/16 08:00 69 12/13/16 07:51 100 T-piece 28 12/13/16 06:00 68 12/13/16 04:00 98.6 60 22 115/62 (79) 100 12/13/16 04:00 60 12/13/16 02:00 60 12/13/16 00:00 98.5 62 17 111/67 (82) 100 12/13/16 00:00 62 12/12/16 22:00 61 12/12/16 20:34 100 T-piece 6.00 28 12/12/16 20:00 67 12/12/16 20:00 98.5 67 16 111/63 (79) 100 12/12/16 18:00 66 12/12/16 16:00 66 12/12/16 16:00 98.4 64 22 119/71 (87) 98 I/O 12/12/16 12/12/16 12/12/16 12/13/16 12/13/16 12/13/16 07:00 15:00 23:00 07:00 15:00 23:00 Intake Total 651 ml 800 ml 786 ml Output Total 1300 ml 1350 ml 725 ml Balance -649 ml -550 ml 61 ml Tube Feeding 531 ml 700 ml 666 ml Other 120 ml 100 ml 120 ml Output Urine Total 1000 ml 1250 ml 700 ml Stool Total 300 ml 100 ml 25 ml Result Diagram: 12/09/16 0545 12/13/16 0330 Objective Remarks GENERAL: SKIN: Warm and dry. HEAD: Atraumatic. Normocephalic. EYES: Pupils equal and round. No scleral icterus. No injection or drainage. ENT: No nasal bleeding or discharge. Mucous membranes pink and moist. NECK: Trachea midline. No JVD. CARDIOVASCULAR: Regular rate and rhythm. RESPIRATORY: No accessory muscle use. Clear to auscultation. Breath sounds equal bilaterally. TRACHEOSTOMY IN PLACE GASTROINTESTINAL: Abdomen soft, non-tender, nondistended. Hepatic and splenic margins not palpable. MUSCULOSKELETAL: Extremities without clubbing, cyanosis, or edema. No obvious deformities. NEUROLOGICAL: Awake and alert. No obvious cranial nerve deficits. Motor grossly within normal limits. Five out of 5 muscle strength in the arms and legs. Normal speech. PSYCHIATRIC: Appropriate mood and affect; insight and judgment normal. Assessment and Plan Assessment and Plan RESP FAILURE, ON VENT SUPPORT NOW ON BIPAP S/P IC BLEED CXRAY 12/04 STABLE NO ACUTE ABNORMALITY PLAN WEAN TOLERATED PULMONARY TOILET Chanfe to cuffless trach Katie Wilson MD Dec 13, 2016 15:52
--- NOTE | 2016-12-13 16:23 | HHI.PR ---
Subjective Remarks awake and alert,ff all commands remains on T piece stool amount decreased and thicker in consistency Objective Vitals Vital Signs Date Time Temp Pulse Resp B/P (MAP) Pulse Ox O2 Delivery O2 Flow Rate FiO2 12/13/16 14:39 68 12/13/16 12:00 67 22 115/62 (79) 100 12/13/16 12:00 67 12/13/16 10:00 64 12/13/16 08:11 60 22 115/62 (79) 100 12/13/16 08:00 69 12/13/16 07:51 100 T-piece 28 12/13/16 06:00 68 12/13/16 04:00 98.6 60 22 115/62 (79) 100 12/13/16 04:00 60 12/13/16 02:00 60 12/13/16 00:00 98.5 62 17 111/67 (82) 100 12/13/16 00:00 62 12/12/16 22:00 61 12/12/16 20:34 100 T-piece 6.00 28 12/12/16 20:00 67 12/12/16 20:00 98.5 67 16 111/63 (79) 100 12/12/16 18:00 66 I/O 12/12/16 12/12/16 12/12/16 12/13/16 12/13/16 12/13/16 07:00 15:00 23:00 07:00 15:00 23:00 Intake Total 651 ml 800 ml 786 ml Output Total 1300 ml 1350 ml 725 ml Balance -649 ml -550 ml 61 ml Tube Feeding 531 ml 700 ml 666 ml Other 120 ml 100 ml 120 ml Output Urine Total 1000 ml 1250 ml 700 ml Stool Total 300 ml 100 ml 25 ml Result Diagram: 12/09/16 0545 12/13/16 0330 Imaging Last Impressions Chest X-Ray 12/04/16 2393 Signed Impressions: Service Date/Time: Sunday, December 04, 2016 18:55 - CONCLUSION: 1. Placement of left central line tip in superior vena cava. No pneumothorax. Mild basilar airspace disease. Small right effusion. Gurwnider Root MD Upper Extremity Ultrasound 12/04/16 0000 Signed Impressions: Service Date/Time: Sunday, December 04, 2016 15:37 - CONCLUSION: 1. Positive for occlusive deep venous thrombosis in the right axillary and subclavian vein. Occlusive superficial thrombus in bilateral cephalic veins. Gurwinder Root MD Angiography 12/01/16 0000 Signed Impressions: Service Date/Time: November 14:02 - CONCLUSION: 1. Right side up on her hemorrhage with angiography of the right bronchial artery revealing no source of active hemorrhage. Empiric embolization was performed. Santos Crockett Jr., MD Chest CT 11/28/16 0000 Signed Impressions: Service Date/Time: Tuesday, November 29, 2016 05:13 - CONCLUSION: 1. Patchy alveolar disease characteristic of edema or pneumonia. 2. Severe emphysema 3. Gastrojejunostomy tube looped in the stomach Harvey Morejon MD Chest/Thorax CTA 11/26/16 0000 Signed Impressions: Service Date/Time: Saturday, November 26, 2016 20:18 - CONCLUSION: 1. Extensive filling defects within the right central bronchial tree characteristic of endobronchial hemorrhage. 2. Consolidating airspace disease in the right upper lobe and right lower lobe characteristic of hemorrhage and post obstructive lung consolidation. 3. Right bronchial artery is identified extending to the central right bronchial region 4. Advanced COPD. Nasir Amanda MD Abdomen X-Ray 11/19/16 0600 Signed Impressions: Service Date/Time: Saturday, November 19, 2016 02:44 - CONCLUSION: Unchanged bowel gas pattern potentially relating to an ileus. Santos Crockett Jr., MD Transcranial Doppler Study Complete 10/20/16 0600 Signed Impressions: Service Date/Time: October 07:54 - CONCLUSION: Slight interval elevation of flow velocity measurements and ratio on the left Yosvany Polk MD Liver Ultrasound 10/19/16 0000 Signed Impressions: Service Date/Time: Wednesday, October 19, 2016 11:20 - CONCLUSION: 1. Sludge filled gallbladder with thickened wall. 2. Moderate size bilateral pleural effusions and mild upper abdominal ascites. Santos Vazquez MD Cerebral Arteriogram 10/19/16 0000 Signed Impressions: Service Date/Time: Wednesday, October 19, 2016 12:47 - CONCLUSION: Uncomplicated cerebral arteriography with spasmolytic therapy as described in detail above. Yosvany Polk MD Head CT 10/17/16 0000 Signed Impressions: Service Date/Time: Monday, October 17, 2016 15:06 - CONCLUSION: Ventricles are slightly larger without ventriculostomy. Edema in the left hemisphere the brain herniating through the operative site. Remington Woodward MD FACR Infusion Non-thrombolysis 10/14/16 1103 Signed Impressions: Service Date/Time: Friday, October 14, 2016 10:21 - CONCLUSION: 1. Uncomplicated infusion for spasmolysis Harvey Morejon MD Neck CTA 10/07/16 0000 Signed Impressions: Service Date/Time: Friday, October 07, 2016 15:03 - CONCLUSION: 1. Mild carotid bulb atherosclerotic calcification bilaterally. However, no significant stenosis is present in either internal carotid artery. 2. Paranasal sinus mucoperiosteal thickening. 3. Please refer to brain CTA report for description of the intracranial findings. Yosvany Ramirez MD Head CTA 10/07/16 0000 Signed Impressions: Service Date/Time: Friday, October 07, 2016 15:03 - CONCLUSION: 1. 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 2. Large left subdural hematoma measuring 1.3 cm in depth with a significant, 1.6 cm left to right subfalcine shift. Joni Shelton MD Objective Remarks awake and alert, oriented, affect blunt lateral aspect of the skull with depression anicteric tracheostomy in place- 28% regular rhythm abdomen- soft PEG in place, site dry no scrotal swelling, condom catheter in place moves all extreeties spontaneously' all toes with digital ischemia, left 2nd finger and right ringer finger with distal digit ischemia bilateral radial and DP,PT ++ stage 1-2 decubitus ulcer Procedures 10/13 Four-vessel cerebral angiography with verapamil treatment of vasospasm Date of Insertion: Dec 04, 2016 Line: Central Venous Catheter Side: Left Location: Internal, Jugular A/P Problem List: (1) Subarachnoid hemorrhage due to ruptured aneurysm ICD Code: I60.8 - Other nontraumatic subarachnoid hemorrhage (2) Subdural hematoma ICD Code: I62.00 - Nontraumatic subdural hemorrhage, unspecified (3) Intracranial aneurysm ICD Code: I67.1 - Cerebral aneurysm, nonruptured (4) Respiratory failure ICD Code: J96.90 - Respiratory failure, unspecified, unspecified whether with hypoxia or hypercapnia Status: Acute Assessment and Plan 56 years old male Status post left frontotemporal parietal craniectomy 10/08 for evacuation subdural hematoma/duraplasty Left subdural hematoma - 1.3 cm with 1.6 shift left to right Subarachnoid hemorrhage Alvarado and Rodriguez 5, Carroll grade 4 - left P-comm status post 4 coiling 10/08 Hypoxic-Ischemic Encephalopathy - Nimodipine completed 21 days. Initiated 10/13. - Levetiracetam 500 mg per tube q12h. - 10/13 and 10/14 and 10/17) 10/19 left MCA territory vasospasm, status post successful verapamil treatment by IR with 20 mg verapamil - 10/17 CT brain - less hemisphere edema with herniation through left craniotomy site, now improved. - Dr. Perry/neurosurgery. Plan to replace bone flap in the future - neurologically stable and doing well Acute hypoxic Respiratory failure secondary to mucous plugging- Resolved Possible healthcare associated pneumonia ARDS- resolved Noncardiogenic/neurogenic pulmonary edema- resolved. Chronic respiratory failure requiring tracheostomy Massive Hemoptysis - resolved Aspiration pneumonitis -- Tolerating T piece since 12/09 at 38% -- Albuterol/ipratropium aerosols every 6 hours with albuterol aerosols - Dr. Wilson ff- plan is to downsize tube and probably considering tracheostomy removal sometime this week CT angiogram chest/neck revealed right centrilobular bleeding likely source right bronchial artery. Repeat CT chest 11/29/no visualization of active bleeding.- Resolved -- Follow-up on sputum culture -- s/p Trach Dr. Sullivan/Dr. Collazo 11/01 #8 Shiley. --Redo trach 11/[address] Crockett 12/01 - embolization of right bronchial artery by IR- no further bleeding from tracheostomy Continue CPAP trials / T-piece Cardiovascular: Septic and cardiogenic shock- resolved. LV dysfunction secondary to SAH - persistent, now resolved Elevated troponin- secondary to SAH, unlikely to be ACS. - resolved. Pulmonary hypertension s/p PEA arrest 11/28 after ett dislodgement, hypoxic arrest Continue free water 200mL per tube q6h. Echocardiogram 10/14/16 revealed EF 40-45%. Septal hypokinesis. Moderate MR. Severe pulmonary hypertension with pulmonary artery pressures estimated 61 mmHg Limited Echo 11/06: LVEF 60-65%, Trivial mitral and tricuspid regurgitation, No vegetations noted. Continue diltiazem's 90 mg by mouth every 6 hours and furosemide 20 mg daily currently off vasopressors. Renal: Cerebral Salt Wasting/SIADH-resolved now hypernatremic Strict I/Os. See FEN below. Creatinine currently within normal limits -> resolved. Monitor urine output FEN/GI: Ileus- now with diarrheea- C diff negative- probably from TF Elevated transaminases Hyperammonemia - Currently on Glucerna 1.5 goal 60 cc an hour. - free water per G tube - ICU electrolyte protocol. - Lansoprazole 30 mg by tube daily for GI prophylaxis - Continue bowel regimen - Reglan DC 12/13- stools amount decreased and thicker in consistency- continue to monitor - Continue PEG feeding. s/p PEG 11/12/16 - speech ff for swallowing progress Heme/ID: Septic Shock- resolved. Possible HCAP New Fever, leukocytosis, staph epi bacteremia Right occlusive subclavian, axillary and bilateral superficial cephalic thrombus - limited Echo to evaluate vegetation-neg. ID following - Follow-up on sputum culture, trach site culture- no growth - Digital Ischemia with necrosis involving all toes and left 2nd finger and right ringer finger- stable, conservative management - s/p Diltiazem and milrinone infusions - Digits have demarcated, allow auto amputation. Cardizem PO currently and 90 mg every 6 hours (for digital ischemia, Raynaud's) Continue bacitracin twice a day to affected areas Peripheral IVs discontinued. Place central line for IV access. We'll need to be started on systemic anticoagulation at some point however with recent embolization for hemoptysis holding full anticoagulation at this time. Pertinent cultures 10/15 - blood cultures - 1 out of 4 anaerobic gram-negative cocci possibly Veillonella 10/15 - sputum - beta strep not A, strep species 10/19 cultures NG 10/21 1/4 bottles blood cultures coag negative staph. Culture 11/01. coag neg stah / bottles 11/16 sputum in trach site cultures negative s/p levofloxacin x 7 days end 11/15/16 Fluconazole discontinued per infectious disease Stage 2 sacral ulcer - ABD dressing with [facility]- staff nurse makes sure to keep area dry Problem Qualifiers (1) Respiratory failure: Qualified Codes: J96.00 - Acute respiratory failure, unspecified whether with hypoxia or hypercapnia Melissa Washington MD Dec 13, 2016 16:23
[2016-12-13] MEDS: MELATONIN 5 MG TAB PO SCH (22:08)
[2016-12-14] VITALS (15 sets, daily range): BP systolic 105–145; BP diastolic 62–75; PULSE 60–88; RESP 16–22; TEMP 98–98.7; O2SAT 98–100
[2016-12-14] MEDS: cloNIDine HCL 0.1 MG TAB PO SCH ×3 (02:00→18:55)
[2016-12-14] MEDS: CHLORHEXIDINE GLUCONATE 2 % 1 PACK (2 CLOTHS) TOP SCH (03:08)
[2016-12-14] MEDS: DILTIAZEM HCL 90 MG TAB PO SCH ×3 (07:03→18:54)
[2016-12-14] MEDS: LANSOPRAZOLE SOLUTAB 30 MG TAB NG SCH (09:00)
[2016-12-14] MEDS: LACTOBACILLUS ACIDOPHILUS TAB PO SCH ×3 (09:00→18:55)
[2016-12-14] MEDS: CHLORHEXIDINE 0.12% (ORAL KIT) 15 ML CUP MT SCH ×2 (09:36→21:17)
[2016-12-14] MEDS: SODIUM CHLORIDE 0.9% FLUSH 10 ML FLUSH IV FLUSH SCH ×3 (09:36→21:17)
[2016-12-14] MEDS: BACITRACIN TOP OINT 15 GM TUBE TOPICAL SCH ×2 (09:37→21:17)
[2016-12-14] MEDS: BENEPROTEIN POWDER 1 PACK G-TUBE SCH ×5 (09:37→17:54)
[2016-12-14] MEDS: ARTIFICIAL TEARS OPTH SOLN 15 ML BTL EACH EYE SCH ×3 (09:37→17:54)
[2016-12-14] MEDS: COLLAGENASE OINT 30 GM TUBE TOPICAL SCH (09:38)
[2016-12-14] MEDS: POVIDONE IODINE 10% OINT 30 GM TUBE TOPICAL SCH (09:38)
--- NOTE | 2016-12-14 10:24 | HHI.PR ---
Subjective Remarks Trach was downgraded to #6. Patient is awake and alert. No copugh. no fever ro chills. No pain at this time. feels tired. With dignishild with diarrhea in it, significant amount. Will check lytes, mag and phos. No chest pain or sob. Denies fever or chills. No n/v/. Objective Vitals Vital Signs Date Time Temp Pulse Resp B/P (MAP) Pulse Ox O2 Delivery O2 Flow Rate FiO2 12/14/16 08:41 100 T-piece 5.00 28 12/14/16 08:00 98.3 74 16 128/62 (84) 100 12/14/16 08:00 74 12/14/16 06:00 78 12/14/16 04:00 78 12/14/16 04:00 98.3 78 16 145/67 (93) 98 12/14/16 02:00 88 12/14/16 00:00 98.0 84 20 105/62 (76) 98 12/14/16 00:00 84 12/13/16 22:00 90 12/13/16 20:41 99 T-piece 5.00 28 12/13/16 20:00 98.3 75 21 128/63 (84) 100 12/13/16 20:00 75 12/13/16 18:00 72 12/13/16 16:00 98.4 78 18 124/65 (84) 100 12/13/16 16:00 78 12/13/16 14:39 68 12/13/16 12:00 67 22 115/62 (79) 100 12/13/16 12:00 67 I/O 12/13/16 12/13/16 12/13/16 12/14/16 12/14/16 12/14/16 07:00 15:00 23:00 07:00 15:00 23:00 Intake Total 786 ml 820 ml 824 ml Output Total 725 ml 900 ml 750 ml Balance 61 ml -80 ml 74 ml Tube Feeding 666 ml 700 ml 704 ml Other 120 ml 120 ml 120 ml Output Urine Total 700 ml 850 ml 750 ml Stool Total 25 ml 50 ml Result Diagram: 12/13/16 0330 Imaging Last Impressions Chest X-Ray 12/04/16 6534 Signed Impressions: Service Date/Time: Sunday, December 04, 2016 18:55 - CONCLUSION: 1. Placement of left central line tip in superior vena cava. No pneumothorax. Mild basilar airspace disease. Small right effusion. Gurwinder Root MD Upper Extremity Ultrasound 12/04/16 0000 Signed Impressions: Service Date/Time: Sunday, December 04, 2016 15:37 - CONCLUSION: 1. Positive for occlusive deep venous thrombosis in the right axillary and subclavian vein. Occlusive superficial thrombus in bilateral cephalic veins. Gurwinder Root MD Angiography 12/01/16 Signed Impressions: Service Date/Time: November 14:02 - CONCLUSION: 1. Right side up on her hemorrhage with angiography of the right bronchial artery revealing no source of active hemorrhage. Empiric embolization was performed. Santos Crockett Jr., MD Chest CT 11/28/16 0000 Signed Impressions: Service Date/Time: Tuesday, November 29, 2016 05:13 - CONCLUSION: 1. Patchy alveolar disease characteristic of edema or pneumonia. 2. Severe emphysema 3. Gastrojejunostomy tube looped in the stomach Harvey Morejon MD Chest/Thorax CTA 11/26/16 0000 Signed Impressions: Service Date/Time: Saturday, November 26, 2016 20:18 - CONCLUSION: 1. Extensive filling defects within the right central bronchial tree characteristic of endobronchial hemorrhage. 2. Consolidating airspace disease in the right upper lobe and right lower lobe characteristic of hemorrhage and post obstructive lung consolidation. 3. Right bronchial artery is identified extending to the central right bronchial region 4. Advanced COPD. Nasir Amanda MD Abdomen X-Ray 11/19/16599 Signed Impressions: Service Date/Time: Saturday, November 19, 2016 02:44 - CONCLUSION: Unchanged bowel gas pattern potentially relating to an ileus. Santos Crockett Jr., MD Transcranial Doppler Study Complete 10/20/16599 Signed Impressions: Service Date/Time: October 07:54 - CONCLUSION: Slight interval elevation of flow velocity measurements and ratio on the left Yosvany Polk MD Liver Ultrasound 10/19/16 0000 Signed Impressions: Service Date/Time: Wednesday, October 19, 2016 11:20 - CONCLUSION: 1. Sludge filled gallbladder with thickened wall. 2. Moderate size bilateral pleural effusions and mild upper abdominal ascites. Santos Vazquez MD Cerebral Arteriogram 10/19/16 0000 Signed Impressions: Service Date/Time: Wednesday, October 19, 2016 12:47 - CONCLUSION: Uncomplicated cerebral arteriography with spasmolytic therapy as described in detail above. Yosvany Polk MD Head CT 10/17/16 0000 Signed Impressions: Service Date/Time: Monday, October 17, 2016 15:06 - CONCLUSION: Ventricles are slightly larger without ventriculostomy. Edema in the left hemisphere the brain herniating through the operative site. Remington Woodward MD FACR Infusion Non-thrombolysis 10/14/16 1103 Signed Impressions: Service Date/Time: Friday, October 14, 2016 10:21 - CONCLUSION: 1. Uncomplicated infusion for spasmolysis Harvey Morejon MD Neck CTA 10/07/16 0000 Signed Impressions: Service Date/Time: Friday, October 07, 2016 15:03 - CONCLUSION: 1. Mild carotid bulb atherosclerotic calcification bilaterally. However, no significant stenosis is present in either internal carotid artery. 2. Paranasal sinus mucoperiosteal thickening. 3. Please refer to brain CTA report for description of the intracranial findings. Yosvany Ramirez MD Head CTA 10/07/16 0000 Signed Impressions: Service Date/Time: Friday, October 07, 2016 15:03 - CONCLUSION: 1. 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 2. Large left subdural hematoma measuring 1.3 cm in depth with a significant, 1.6 cm left to right subfalcine shift. Joni Shelton MD Objective Remarks GENERAL: Awake and alert, oriented, blunt affect, moves extremities spontaneously SKIN: All toes with digital ischemia, left 2nd finger and right ringer finger with distal digit ischemia. Stage 1-2 decubitus ulcer NECK: Tracheostomy in place- 28% CARDIOVASCULAR: Regular rate and rhythm. RESPIRATORY: No accessory muscle use. Clear to auscultation. Breath sounds equal bilaterally. GASTROINTESTINAL: Abdomen soft, non-tender, nondistended. Soft PEG in place, site c/d/i MUSCULOSKELETAL: Extremities without clubbing, cyanosis, or edema. No obvious deformities. Bilateral radial and DP,PT ++ NEUROLOGICAL: Awake, blunt affect, moves extremities spontaneously. Procedures 10/13 Four-vessel cerebral angiography with verapamil treatment of vasospasm Date of Insertion: Dec 04, 2016 Line: Central Venous Catheter Side: Left Location: Internal, Jugular A/P Problem List: (1) Subarachnoid hemorrhage due to ruptured aneurysm ICD Code: I60.8 - Other nontraumatic subarachnoid hemorrhage (2) Subdural hematoma ICD Code: I62.00 - Nontraumatic subdural hemorrhage, unspecified (3) Intracranial aneurysm ICD Code: I67.1 - Cerebral aneurysm, nonruptured (4) Respiratory failure ICD Code: J96.90 - Respiratory failure, unspecified, unspecified whether with hypoxia or hypercapnia Status: Acute Assessment and Plan 56 years old male Status post left frontotemporal parietal craniectomy 10/08 for evacuation subdural hematoma/duraplasty Left subdural hematoma - 1.3 cm with 1.6 shift left to right Subarachnoid hemorrhage Alvarado and Rodriguez 5, Carroll grade 4 - left P-comm status post 4 coiling 10/08 Hypoxic-Ischemic Encephalopathy - Nimodipine completed 21 days. Initiated 10/13. - Levetiracetam 500 mg per tube q12h. - 10/13 and 10/14 and 10/17) 10/19 left MCA territory vasospasm, status post successful verapamil treatment by IR with 20 mg verapamil - 10/17 CT brain - less hemisphere edema with herniation through left craniotomy site, now improved. - Dr. Perry/neurosurgery. Plan to replace bone flap in the future - neurologically stable and doing well Acute hypoxic Respiratory failure secondary to mucous plugging- Resolved Possible healthcare associated pneumonia ARDS- resolved Noncardiogenic/neurogenic pulmonary edema- resolved. Chronic respiratory failure requiring tracheostomy Massive Hemoptysis - resolved Aspiration pneumonitis -- Tolerating T piece since 12/09 at 38% -- Albuterol/ipratropium aerosols every 6 hours with albuterol aerosols - Dr. Wilson ff- plan is to downsize tube and probably considering tracheostomy removal sometime this week CT angiogram chest/neck revealed right centrilobular bleeding likely source right bronchial artery. Repeat CT chest 11/29/no visualization of active bleeding.- Resolved -- Follow-up on sputum culture -- s/p Trach Dr. Sullivan/Dr. Collazo 11/01 #8 Sh[place]. --Redo trach 11/[address] Crockett 12/01 - embolization of right bronchial artery by IR- no further bleeding from tracheostomy Continue CPAP trials / T-piece Cardiovascular: Septic and cardiogenic shock- resolved. LV dysfunction secondary to SAH - persistent, now resolved Elevated troponin- secondary to SAH, unlikely to be ACS. - resolved. Pulmonary hypertension s/p PEA arrest 11/28 after ett dislodgement, hypoxic arrest Continue free water 200mL per tube q6h. Echocardiogram 10/14/16 revealed EF 40-45%. Septal hypokinesis. Moderate MR. Severe pulmonary hypertension with pulmonary artery pressures estimated 61 mmHg Limited Echo 11/06: LVEF 60-65%, Trivial mitral and tricuspid regurgitation, No vegetations noted. Continue diltiazem's 90 mg by mouth every 6 hours and furosemide 20 mg daily currently off vasopressors. Renal: Cerebral Salt Wasting/SIADH-resolved now hypernatremic Strict I/Os. See FEN below. Creatinine currently within normal limits -> resolved. Monitor urine output FEN/GI: Ileus- now with diarrheea- C diff negative- probably from TF. Reconsult diatician to review TB. Patien rosemaryith persistent diarrhea, has dignishield. Will add probiotic and imodium as well/ Check lytes, mag and phos. check prealbumin. Elevated transaminases Hyperammonemia - Currently on Glucerna 1.5 goal 60 cc an hour. Consult seismograph shooter to review formula. - free water per G tube - ICU electrolyte protocol. - Lansoprazole 30 mg by tube daily for GI prophylaxis - Continue bowel regimen - Reglan DC 12/13- stools amount decreased and thicker in consistency- continue to monitor - Continue PEG feeding. s/p PEG 11/12/16 - speech ff for swallowing progress Heme/ID: Septic Shock- resolved. Possible HCAP New Fever, leukocytosis, staph epi bacteremia Right occlusive subclavian, axillary and bilateral superficial cephalic thrombus - limited Echo to evaluate vegetation-neg. ID following - Follow-up on sputum culture, trach site culture- no growth - Digital Ischemia with necrosis involving all toes and left 2nd finger and right ringer finger- stable, conservative management - s/p Diltiazem and milrinone infusions - Digits have demarcated, allow auto amputation. Cardizem PO currently and 90 mg every 6 hours (for digital ischemia, Raynaud's) Continue bacitracin twice a day to affected areas Peripheral IVs discontinued. Place central line for IV access. We'll need to be started on systemic anticoagulation at some point however with recent embolization for hemoptysis holding full anticoagulation at this time. Pertinent cultures 10/15 - blood cultures - 1 out of 4 anaerobic gram-negative cocci possibly Veillonella 10/15 - sputum - beta strep not A, strep species 10/19 cultures NG 10/21 1/ bottles blood cultures coag negative staph. Culture 11/01. coag neg stah 03/19 bottles 11/16 sputum in trach site cultures negative s/p levofloxacin x 7 days end 11/15/16 Fluconazole discontinued per infectious disease Stage 2 sacral ulcer - ABD dressing with [facility]- staff nurse makes sure to keep area dry Discussed with the patient, ICU nurse Problem Qualifiers (1) Respiratory failure: Qualified Codes: J96.00 - Acute respiratory failure, unspecified whether with hypoxia or hypercapnia Nancy Guardado MD Dec 14, 2016 10:24
[2016-12-14] MEDS ORDERED: LOPERAMIDE HCL SOLN 2 MG/10 ML UDC PO PRN (10:45)
[2016-12-14] MEDS: levETIRAcetam 500 MG/5 ML UDC NG SCH ×2 (12:16→21:18)
[2016-12-14] MEDS: ACETAMINOPHEN 325 MG TAB PO PRN (12:16)
[2016-12-14 15:29] LABS: AUTOMATED NEUTROPHIL # 3.2 TH/MM3 (1.8-7.7); BASOPHIL # 0.1 TH/MM3 (0-0.2); BASOPHIL % 1.9 % (0.0-2.0); EOSINOPHIL % 0.3 % (0.0-4.0); HEMATOCRIT 25.3 % (39.0-51.0); HEMO FLAGS DIFF FINAL; LYMPH % 44.5 % (9.0-44.0); LYMPHOCYTE # 3.2 TH/MM3 (1.0-4.8); MEAN CELL VOLUME 90.9 FL (80.0-100.0); MEAN CORPUSCULAR HEMOGLOBIN 30.7 PG (27.0-34.0); MEAN CORPUSCULAR HGB CONC 33.8 % (32.0-36.0); NEUT % 44.3 % (16.0-70.0); PLATELET COUNT 312 TH/MM3 (150-450); RED BLOOD COUNT 2.79 MIL/MM3 (4.50-5.90); RED CELL DISTRIBUTION WIDTH 15.8 % (11.6-17.2); WHITE BLOOD COUNT 7.2 TH/MM3 (4.0-11.0)
[2016-12-14 15:59] LABS: BICARBONATE 29.7 MEQ/L (21.0-32.0); POTASSIUM 4.2 MEQ/L (3.5-5.1)
[2016-12-14] MEDS: MELATONIN 5 MG TAB PO SCH (21:18)
[2016-12-15] VITALS (15 sets, daily range): BP systolic 110–132; BP diastolic 58–76; PULSE 56–80; RESP 16–26; TEMP 98.4–98.7; O2SAT 98–100
[2016-12-15] MEDS: DILTIAZEM HCL 90 MG TAB PO SCH ×5 (00:28→23:41)
[2016-12-15] MEDS: cloNIDine HCL 0.1 MG TAB PO SCH ×3 (01:19→18:01)
[2016-12-15] MEDS: CHLORHEXIDINE GLUCONATE 2 % 1 PACK (2 CLOTHS) TOP SCH (03:38)
[2016-12-15 05:01] LABS: AUTOMATED NEUTROPHIL # 3.6 TH/MM3 (1.8-7.7); BASOPHIL # 0.1 TH/MM3 (0-0.2); BASOPHIL % 2.1 % (0.0-2.0); EOSINOPHIL % 0.7 % (0.0-4.0); HEMATOCRIT 25.3 % (39.0-51.0); HEMO FLAGS DIFF FINAL; LYMPH % 36.9 % (9.0-44.0); LYMPHOCYTE # 2.6 TH/MM3 (1.0-4.8); MEAN CELL VOLUME 90.3 FL (80.0-100.0); MEAN CORPUSCULAR HEMOGLOBIN 30.8 PG (27.0-34.0); MEAN CORPUSCULAR HGB CONC 34.1 % (32.0-36.0); MONO % 9.2 % (0.0-8.0); NEUT % 51.1 % (16.0-70.0); PLATELET COUNT 293 TH/MM3 (150-450); RED CELL DISTRIBUTION WIDTH 15.9 % (11.6-17.2)
[2016-12-15 05:29] LABS: BICARBONATE 29.8 MEQ/L (21.0-32.0); MAGNESIUM 2.1 MG/DL (1.5-2.5); POTASSIUM 4.2 MEQ/L (3.5-5.1)
[2016-12-15] MEDS: POVIDONE IODINE 10% OINT 30 GM TUBE TOPICAL SCH (09:00)
--- NOTE | 2016-12-15 09:10 | HHI.PR ---
Subjective Remarks on TBAR ALERT NO DISTRESS Objective Vital Signs Date Time Temp Pulse Resp B/P (MAP) Pulse Ox O2 Delivery O2 Flow Rate FiO2 12/15/16 08:40 98 Trach Collar 5.00 28 12/15/16 08:00 60 12/15/16 06:00 66 12/15/16 04:00 64 12/15/16 04:00 98.5 64 16 128/60 (82) 99 12/15/16 02:00 64 12/15/16 00:00 98.4 80 17 132/76 (94) 100 12/15/16 00:00 72 12/14/16 22:00 70 12/14/16 20:12 98 Trach Collar 6.00 28 12/14/16 20:00 98.3 68 17 133/75 (94) 100 12/14/16 20:00 68 12/14/16 18:40 99 Trach Collar 6.00 12/14/16 18:00 68 12/14/16 16:00 60 12/14/16 16:00 98.7 60 22 118/62 (80) 100 12/14/16 14:00 70 12/14/16 13:16 20 12/14/16 12:00 69 12/14/16 12:00 98.4 75 20 115/68 (84) 99 12/14/16 10:00 78 I/O 12/14/16 12/14/16 12/14/16 12/15/16 12/15/16 12/15/16 07:00 15:00 23:00 07:00 15:00 23:00 Intake Total 824 ml 662 ml 695 ml Output Total 750 ml 750 ml 750 ml Balance 74 ml -88 ml -55 ml Intake Oral 0 ml IV Total 10 ml Tube Feeding 704 ml 622 ml 575 ml Tube Irrigant 30 ml Other 120 ml 120 ml Output Urine Total 750 ml 650 ml 650 ml Stool Total 100 ml 100 ml Result Diagram: 12/15/1644412/15/16444 Objective Remarks GENERAL: SKIN: Warm and dry. HEAD: Atraumatic. Normocephalic. EYES: Pupils equal and round. No scleral icterus. No injection or drainage. ENT: No nasal bleeding or discharge. Mucous membranes pink and moist. NECK: Trachea midline. No JVD. CARDIOVASCULAR: Regular rate and rhythm. RESPIRATORY: No accessory muscle use. Clear to auscultation. Breath sounds equal bilaterally. TRACHEOSTOMY IN PLACE GASTROINTESTINAL: Abdomen soft, non-tender, nondistended. Hepatic and splenic margins not palpable. MUSCULOSKELETAL: Extremities without clubbing, cyanosis, or edema. No obvious deformities. NEUROLOGICAL: Awake and alert. No obvious cranial nerve deficits. Motor grossly within normal limits. Five out of 5 muscle strength in the arms and legs. Normal speech. PSYCHIATRIC: Appropriate mood and affect; insight and judgment normal. Assessment and Plan Assessment and Plan RESP FAILURE, ON VENT SUPPORT NOW ON BIPAP S/P IC BLEED CXRAY 12/04 STABLE NO ACUTE ABNORMALITY PLAN WEAN TOLERATED PULMONARY TOILET cap trach and remove when possible Katie Wilson MD Dec 15, 2016 09:10
[2016-12-15] MEDS: SODIUM CHLORIDE 0.9% FLUSH 10 ML FLUSH IV FLUSH SCH ×3 (09:30→20:35)
[2016-12-15] MEDS: CHLORHEXIDINE 0.12% (ORAL KIT) 15 ML CUP MT SCH ×2 (09:30→20:35)
[2016-12-15] MEDS: BENEPROTEIN POWDER 1 PACK G-TUBE SCH ×3 (09:30→18:02)
[2016-12-15] MEDS: ARTIFICIAL TEARS OPTH SOLN 15 ML BTL EACH EYE SCH ×3 (09:30→18:02)
[2016-12-15] MEDS: levETIRAcetam 500 MG/5 ML UDC NG SCH ×2 (09:31→20:36)
[2016-12-15] MEDS: BACITRACIN TOP OINT 15 GM TUBE TOPICAL SCH ×2 (09:31→20:36)
[2016-12-15] MEDS: LACTOBACILLUS ACIDOPHILUS TAB PO SCH ×3 (09:31→18:02)
[2016-12-15] MEDS: COLLAGENASE OINT 30 GM TUBE TOPICAL SCH (09:32)
[2016-12-15] MEDS: LANSOPRAZOLE SOLUTAB 30 MG TAB NG SCH (09:32)
[2016-12-15] MEDS: ACETAMINOPHEN 325 MG TAB PO PRN (13:05)
--- NOTE | 2016-12-15 17:30 | HHI.PR ---
Subjective Remarks Follow simple commands. No acute changes overnight. Objective Vitals Vital Signs Date Time Temp Pulse Resp B/P (MAP) Pulse Ox O2 Delivery O2 Flow Rate FiO2 12/15/16 16:55 100 Nasal Cannula 2.00 12/15/16 14:05 20 12/15/16 14:00 63 12/15/16 12:00 98.7 60 19 110/59 (76) 100 12/15/16 12:00 60 12/15/16 10:00 61 12/15/16 08:40 98 Trach Collar 5.00 28 12/15/16 08:00 98.4 62 16 121/58 (79) 100 12/15/16 08:00 60 12/15/16 06:00 66 12/15/16 04:00 64 12/15/16 04:00 98.5 64 16 128/60 (82) 99 12/15/16 02:00 64 12/15/16 00:00 98.4 80 17 132/76 (94) 100 12/15/16 00:00 72 12/14/16 22:00 70 12/14/16 20:12 98 Trach Collar 6.00 28 12/14/16 20:00 98.3 68 17 133/75 (94) 100 12/14/16 20:00 68 12/14/16 18:40 99 Trach Collar 6.00 12/14/16 18:00 68 I/O 12/14/16 12/14/16 12/14/16 12/15/16 12/15/16 12/15/16 07:00 15:00 23:00 07:00 15:00 23:00 Intake Total 824 ml 662 ml 695 ml Output Total 750 ml 750 ml 750 ml Balance 74 ml -88 ml -55 ml Intake Oral 0 ml IV Total 10 ml Tube Feeding 704 ml 622 ml 575 ml Tube Irrigant 30 ml Other 120 ml 120 ml Output Urine Total 750 ml 650 ml 650 ml Stool Total 100 ml 100 ml Result Diagram: 12/15/1644412/15/165 Other Results Microbiology Date/Time Source Procedure Growth Status 11/15/16 05:20 Blood Peripheral Aerobic Blood Culture - Final NO GROWTH IN 5 DAYS Complete 11/15/16 05:20 Blood Peripheral Anaerobic Blood Culture - Final NO GROWTH IN 5 DAYS Complete 11/16/16 06:00 Sputum Endotracheal Gram Stain - Final Complete 11/16/16 06:00 Sputum Endotracheal Sputum Culture - Final HEAVY GROWTH NORMAL RESPIRATORY YOAN Complete 11/06/16 13:00 Urine Random Urine Urine Culture - Final <10,000 CFU/ML GRAM POSITIVE YOAN Complete 11/16/16 11:13 Wound Neck Gram Stain - Final Complete 11/16/16 11:13 Wound Neck Wound Culture - Final HEAVY GROWTH NORMAL SKIN YAON... Complete Objective Remarks GENERAL: This is a well-nourished, well-developed patient, in no apparent distress. Trach in place CARDIOVASCULAR: Relatively clear to auscultation. RESPIRATORY: Clear to auscultation. Breath sounds equal bilaterally. No wheezes , rales, or rhonchi. GASTROINTESTINAL: Abdomen soft, non-tender, nondistended. Normal active bowel sounds MUSCULOSKELETAL: Extremities without clubbing, cyanosis, or edema. NEURO: follows commands and moved all 4 extremities Procedures 10/13 Four-vessel cerebral angiography with verapamil treatment of vasospasm Date of Insertion: Dec 04, 2016 Line: Central Venous Catheter Side: Left Location: Internal, Jugular A/P Problem List: (1) Subarachnoid hemorrhage due to ruptured aneurysm ICD Code: I60.8 - Other nontraumatic subarachnoid hemorrhage (2) Subdural hematoma ICD Code: I62.00 - Nontraumatic subdural hemorrhage, unspecified (3) Intracranial aneurysm ICD Code: I67.1 - Cerebral aneurysm, nonruptured (4) Respiratory failure ICD Code: J96.90 - Respiratory failure, unspecified, unspecified whether with hypoxia or hypercapnia Status: Acute Assessment and Plan 56 years old male Status post left frontotemporal parietal craniectomy 10/08 for evacuation subdural hematoma/duraplasty Left subdural hematoma - 1.3 cm with 1.6 shift left to right Subarachnoid hemorrhage Alvarado and Rodriguez 5, Carroll grade 4 - left P-comm status post 4 coiling 10/08 Hypoxic-Ischemic Encephalopathy - Nimodipine completed 21 days. Initiated 10/13. - Levetiracetam 500 mg per tube q12h. - 10/13 and 10/14 and 10/17) 10/19 left MCA territory vasospasm, status post successful verapamil treatment by IR with 20 mg verapamil - 10/17 CT brain - less hemisphere edema with herniation through left craniotomy site, now improved. - Dr. Perry/neurosurgery. Plan to replace bone flap in the future - neurologically stable and doing well, and continued PT and rehabilitation. Acute hypoxic Respiratory failure secondary to mucous plugging- Resolved Possible healthcare associated pneumonia ARDS- resolved Noncardiogenic/neurogenic pulmonary edema- resolved. Chronic respiratory failure requiring tracheostomy-attending to And placed on nasal cannula Massive Hemoptysis - resolved Aspiration pneumonitis -- Tolerating T piece since 12/09 at 38%, attempting to Trach and move to nasal cannula -- Albuterol/ipratropium aerosols every 6 hours with albuterol aerosols - Dr. Wilson plan is to downsize tube and probably considering tracheostomy removal sometime this week CT angiogram chest/neck revealed right centrilobular bleeding likely source right bronchial artery. Repeat CT chest 11/29no visualization of active bleeding.- Resolved -- Follow-up on sputum culture -- s/p Trach Dr. Sullivan/Dr. Collazo 11/01 #8 [facility]. --Redo trach 11/[address] Crockett-down sized to uncuffed fenestrated 6 tracheostomy on 12/14 12/01 - embolization of right bronchial artery by IR- no further bleeding from tracheostomy Continue CPAP trials / T-piece an attempt to And placed on nasal cannula. Cardiovascular: Septic and cardiogenic shock- resolved. LV dysfunction secondary to SAH - persistent, now resolved Elevated troponin- secondary to SAH, unlikely to be ACS. - resolved. Pulmonary hypertension s/p PEA arrest 11/28 after ett dislodgement, hypoxic arrest Continue free water 200mL per tube q6h. Echocardiogram 10/14/16 revealed EF 40-45%. Septal hypokinesis. Moderate MR. Severe pulmonary hypertension with pulmonary artery pressures estimated 61 mmHg Limited Echo 11/06: LVEF 60-65%, Trivial mitral and tricuspid regurgitation, No vegetations noted. Continue diltiazem's 90 mg by mouth every 6 hours and furosemide 20 mg daily Renal: Cerebral Salt Wasting/SIADH-resolved now hypernatremic Strict I/Os. See FEN below. Creatinine currently within normal limits -> resolved. Monitor urine output FEN/GI: Ileus- improving. Monitor Elevated transaminases Hyperammonemia - Currently on Glucerna 1.5 goal 60 cc an hour. Consult ward maid to review formula. - free water per G tube - ICU electrolyte protocol. - Lansoprazole 30 mg by tube daily for GI prophylaxis - Continue bowel regimen - Reglan DC 12/13- stools amount decreased and thicker in consistency- continue to monitor - Continue PEG feeding. s/p PEG 11/12/16 - speech ff for swallowing progress Severe protein caloric malnutrition- continue with tube feeds as tolerated. Heme/ID: Septic Shock- resolved. Possible HCAP New Fever, leukocytosis, staph epi bacteremia Right occlusive subclavian, axillary and bilateral superficial cephalic thrombus - limited Echo to evaluate vegetation-neg. ID following - Follow-up on sputum culture, trach site culture- no growth - Digital Ischemia with necrosis involving all toes and left 2nd finger and right ringer finger- stable, conservative management - Digits have demarcated, allow auto amputation. Cardizem PO currently and 90 mg every 6 hours (for digital ischemia, Raynaud's) Continue bacitracin twice a day to affected areas Peripheral IVs discontinued. Place central line for IV access. We'll need to be started on systemic anticoagulation at some point however with recent embolization for hemoptysis holding full anticoagulation at this time. Stage 2 sacral ulcer - ABD dressing with [employer]- staff nurse makes sure to keep area dry Problem Qualifiers (1) Respiratory failure: Qualified Codes: J96.00 - Acute respiratory failure, unspecified whether with hypoxia or hypercapnia Maria Luz De Paz MD Dec 15, 2016 17:30
[2016-12-15] MEDS: MELATONIN 5 MG TAB PO SCH (20:35)
[2016-12-16] VITALS (14 sets, daily range): BP systolic 107–129; BP diastolic 54–70; PULSE 60–74; RESP 14–19; TEMP 98–98.7; O2SAT 63–100
[2016-12-16] MEDS: cloNIDine HCL 0.1 MG TAB PO SCH ×3 (03:08→17:30)
[2016-12-16] MEDS: CHLORHEXIDINE GLUCONATE 2 % 1 PACK (2 CLOTHS) TOP SCH (03:08)
[2016-12-16] MEDS: DILTIAZEM HCL 90 MG TAB PO SCH ×3 (05:14→17:31)
--- NOTE | 2016-12-16 08:23 | HHI.PR ---
Subjective Remarks TRACH CAPPED NO SOB Objective Vital Signs Date Time Temp Pulse Resp B/P (MAP) Pulse Ox O2 Delivery O2 Flow Rate FiO2 12/16/16 08:01 97 21 12/16/16 06:00 66 12/16/16 04:00 60 12/16/16 04:00 98.7 60 14 129/58 (81) 100 12/16/16 02:00 70 12/16/16 00:00 98.4 68 16 108/58 (75) 98 12/16/16 00:00 68 12/15/16 22:00 66 12/15/16 20:30 100 Nasal Cannula 2.00 12/15/16 20:00 62 12/15/16 20:00 98.5 62 25 118/67 (84) 100 12/15/16 18:00 59 12/15/16 16:55 100 Nasal Cannula 2.00 12/15/16 16:00 98.7 56 26 125/73 (90) 100 12/15/16 16:00 59 12/15/16 14:05 20 12/15/16 14:00 63 12/15/16 12:00 98.7 60 19 110/59 (76) 100 12/15/16 12:00 60 12/15/16 10:00 61 12/15/16 08:40 98 Trach Collar 5.00 28 I/O 12/15/16 12/15/16 12/15/16 12/16/16 12/16/16 12/16/16 07:00 15:00 23:00 07:00 15:00 23:00 Intake Total 695 ml 426 ml 360 ml Output Total 750 ml 750 ml 800 ml Balance -55 ml -324 ml -440 ml Intake Oral 0 ml IV Total 10 ml Tube Feeding 575 ml 366 ml 180 ml Tube Irrigant 50 ml Other 120 ml 180 ml Output Urine Total 650 ml 650 ml 800 ml Stool Total 100 ml 100 ml 0 ml Result Diagram: 12/15/1644412/15/16444 Objective Remarks GENERAL: SKIN: Warm and dry. HEAD: Atraumatic. Normocephalic. EYES: Pupils equal and round. No scleral icterus. No injection or drainage. ENT: No nasal bleeding or discharge. Mucous membranes pink and moist. NECK: Trachea midline. No JVD. CARDIOVASCULAR: Regular rate and rhythm. RESPIRATORY: No accessory muscle use. Clear to auscultation. Breath sounds equal bilaterally. TRACHEOSTOMY IN PLACE GASTROINTESTINAL: Abdomen soft, non-tender, nondistended. Hepatic and splenic margins not palpable. MUSCULOSKELETAL: Extremities without clubbing, cyanosis, or edema. No obvious deformities. NEUROLOGICAL: Awake and alert. No obvious cranial nerve deficits. Motor grossly within normal limits. Five out of 5 muscle strength in the arms and legs. Normal speech. PSYCHIATRIC: Appropriate mood and affect; insight and judgment normal. Assessment and Plan Assessment and Plan RESP FAILURE, ON VENT SUPPORT NOW ON BIPAP S/P IC BLEED CXRAY 12/04 STABLE NO ACUTE ABNORMALITY PLAN trach capped , doing all Katie,Katie Mcgill MD Dec 16, 2016 08:23
[2016-12-16] MEDS: ARTIFICIAL TEARS OPTH SOLN 15 ML BTL EACH EYE SCH ×3 (08:52→17:22)
[2016-12-16] MEDS: CHLORHEXIDINE 0.12% (ORAL KIT) 15 ML CUP MT SCH ×2 (08:52→22:05)
[2016-12-16] MEDS: BENEPROTEIN POWDER 1 PACK G-TUBE SCH ×3 (08:53→17:30)
[2016-12-16] MEDS: SODIUM CHLORIDE 0.9% FLUSH 10 ML FLUSH IV FLUSH SCH ×3 (08:53→22:05)
[2016-12-16] MEDS: BACITRACIN TOP OINT 15 GM TUBE TOPICAL SCH ×2 (08:54→22:05)
[2016-12-16] MEDS: levETIRAcetam 500 MG/5 ML UDC NG SCH ×2 (08:54→22:04)
[2016-12-16] MEDS: LACTOBACILLUS ACIDOPHILUS TAB PO SCH ×3 (08:54→17:30)
[2016-12-16] MEDS: LANSOPRAZOLE SOLUTAB 30 MG TAB NG SCH (08:54)
[2016-12-16] MEDS: POVIDONE IODINE 10% OINT 30 GM TUBE TOPICAL SCH (08:54)
[2016-12-16] MEDS: COLLAGENASE OINT 30 GM TUBE TOPICAL SCH (08:55)
--- NOTE | 2016-12-16 14:59 | HHI.PR ---
Subjective Remarks History status remained stable with Trach currently on room air at this time. Objective Vitals Vital Signs Date Time Temp Pulse Resp B/P (MAP) Pulse Ox O2 Delivery O2 Flow Rate FiO2 12/16/16 14:00 66 12/16/16 12:00 62 12/16/16 12:00 98.2 62 14 115/58 (77) 97 12/16/16 10:00 74 12/16/16 08:01 97 21 12/16/16 08:00 98.0 65 19 124/58 (80) 98 12/16/16 08:00 65 12/16/16 06:00 66 12/16/16 04:00 60 12/16/16 04:00 98.7 60 14 129/58 (81) 100 12/16/16 02:00 70 12/16/16 00:00 98.4 68 16 108/58 (75) 98 12/16/16 00:00 68 12/15/16 22:00 66 12/15/16 20:30 100 Nasal Cannula 2.00 12/15/16 20:00 62 12/15/16 20:00 98.5 62 25 118/67 (84) 100 12/15/16 18:00 59 12/15/16 16:55 100 Nasal Cannula 2.00 12/15/16 16:00 98.7 56 26 125/73 (90) 100 12/15/16 16:00 59 I/O 12/15/16 12/15/16 12/15/16 12/16/16 12/16/16 12/16/16 07:00 15:00 23:00 07:00 15:00 23:00 Intake Total 695 ml 426 ml 360 ml Output Total 750 ml 750 ml 800 ml Balance -55 ml -324 ml -440 ml Intake Oral 0 ml IV Total 10 ml Tube Feeding 575 ml 366 ml 180 ml Tube Irrigant 50 ml Other 120 ml 180 ml Output Urine Total 650 ml 650 ml 800 ml Stool Total 100 ml 100 ml 0 ml Result Diagram: 12/15/1644412/15/16444 Objective Remarks GENERAL: This is a well-nourished, well-developed patient, in no apparent distress. Trach in place and capped CARDIOVASCULAR: Relatively clear to auscultation. RESPIRATORY: Clear to auscultation. Breath sounds equal bilaterally. No wheezes , rales, or rhonchi. GASTROINTESTINAL: Abdomen soft, non-tender, nondistended. Normal active bowel sounds MUSCULOSKELETAL: Extremities without clubbing, cyanosis, or edema. NEURO: follows commands and moved all 4 extremities Procedures 10/13 Four-vessel cerebral angiography with verapamil treatment of vasospasm Date of Insertion: Dec 04, 2016 Line: Central Venous Catheter Side: Left Location: Internal, Jugular A/P Problem List: (1) Subarachnoid hemorrhage due to ruptured aneurysm ICD Code: I60.8 - Other nontraumatic subarachnoid hemorrhage (2) Subdural hematoma ICD Code: I62.00 - Nontraumatic subdural hemorrhage, unspecified (3) Intracranial aneurysm ICD Code: I67.1 - Cerebral aneurysm, nonruptured (4) Respiratory failure ICD Code: J96.90 - Respiratory failure, unspecified, unspecified whether with hypoxia or hypercapnia Status: Acute Assessment and Plan 56 years old male Status post left frontotemporal parietal craniectomy 10/08 for evacuation subdural hematoma/duraplasty Left subdural hematoma - 1.3 cm with 1.6 shift left to right Subarachnoid hemorrhage Alvarado and Rodriguez 5, Carroll grade 4 - left P-comm status post 4 coiling 10/08 Hypoxic-Ischemic Encephalopathy - Nimodipine completed 21 days. Initiated 10/13. - Levetiracetam 500 mg per tube q12h. - 10/13 and 10/14 and 10/17) 10/19 left MCA territory vasospasm, status post successful verapamil treatment by IR with 20 mg verapamil - 10/17 CT brain - less hemisphere edema with herniation through left craniotomy site, now improved. - Dr. Perry/neurosurgery. Plan to replace bone flap in the future - neurologically stable and doing well, and continued PT and rehabilitation. Acute hypoxic Respiratory failure secondary to mucous plugging- Resolved Possible healthcare associated pneumonia ARDS- resolved Noncardiogenic/neurogenic pulmonary edema- resolved. Chronic respiratory failure requiring tracheostomy-attending to And placed on nasal cannula Massive Hemoptysis - resolved Aspiration pneumonitis -- Trach has now been tapped for 2 days and currently on room air. -- Albuterol/ipratropium aerosols every 6 hours with albuterol aerosols - Dr. Wilson plan is to downsize tube and probably considering tracheostomy removal sometime this week At this time consider transfer to stepdown unit. CT angiogram chest/neck revealed right centrilobular bleeding likely source right bronchial artery. Repeat CT chest 11/29no visualization of active bleeding.- Resolved -- Follow-up on sputum culture -- s/p Trach Dr. Sullivan/Dr. Collazo 11/01 #8 [place] --Redo trach 11/[address] Crockett; down sized to uncuffed fenestrated 6 tracheostomy on 12/14 and now capped. 12/01 - embolization of right bronchial artery by IR- no further bleeding from tracheostomy Septic and cardiogenic shock- resolved. LV dysfunction secondary to SAH - persistent, now resolved Elevated troponin- secondary to SAH, unlikely to be ACS. - resolved. Pulmonary hypertension s/p PEA arrest 11/28 after ett dislodgement, hypoxic arrest Continue free water 200mL per tube q6h. Echocardiogram 10/14/16 revealed EF 40-45%. Septal hypokinesis. Moderate MR. Severe pulmonary hypertension with pulmonary artery pressures estimated 61 mmHg Limited Echo 11/06: LVEF 60-65%, Trivial mitral and tricuspid regurgitation, No vegetations noted. Continue diltiazem's 90 mg by mouth every 6 hours and furosemide 20 mg daily Renal: Cerebral Salt Wasting/SIADH-resolved now hypernatremic Strict I/Os. See FEN below. Creatinine currently within normal limits -> resolved. Monitor urine output FEN/GI: Ileus- improving. Monitor Elevated transaminases Hyperammonemia - Currently on Glucerna 1.5 goal 60 cc an hour. Consult shank burnisher to review formula. - free water per G tube - ICU electrolyte protocol. - Lansoprazole 30 mg by tube daily for GI prophylaxis will change this to Pepcid - Continue bowel regimen - Reglan DC 12/13- stools amount decreased and thicker in consistency- continue to monitor - Continue PEG feeding. s/p PEG 11/12/16 - speech following for swallowing progress Severe protein caloric malnutrition- continue with tube feeds as tolerated. Septic Shock- resolved. Right occlusive subclavian, axillary and bilateral superficial cephalic thrombus - limited Echo to evaluate vegetation-neg. ID following - Follow-up on sputum culture, trach site culture- no growth - Digital Ischemia with necrosis involving all toes and left 2nd finger and right ringer finger- stable, conservative management - Digits have demarcated, allow auto amputation. Cardizem PO currently and 90 mg every 6 hours (for digital ischemia, Raynaud's) Continue bacitracin twice a day to affected areas Peripheral IVs discontinued. Place central line for IV access. We'll need to be started on systemic anticoagulation at some point however with recent embolization for hemoptysis holding full anticoagulation at this time. Stage 2 sacral ulcer - ABD dressing with [employer]- staff nurse makes sure to keep area dry Discharge Planning Transfer out of the intensive care unit. Problem Qualifiers (1) Respiratory failure: Qualified Codes: J96.00 - Acute respiratory failure, unspecified whether with hypoxia or hypercapnia Maria Luz De Paz MD Dec 16, 2016 14:59
[2016-12-16] MEDS: FAMOTIDINE 20 MG TAB PO SCH (22:04)
[2016-12-16] MEDS: ACETAMINOPHEN 325 MG TAB PO PRN (22:04)
[2016-12-16] MEDS: MELATONIN 5 MG TAB PO SCH (22:05)
[2016-12-17] VITALS (9 sets, daily range): BP systolic 93–188; BP diastolic 56–77; PULSE 59–78; RESP 18–19; TEMP 97.5–99; O2SAT 94–99
[2016-12-17] MEDS: cloNIDine HCL 0.1 MG TAB PO SCH ×3 (02:37→17:13)
[2016-12-17] MEDS: CHLORHEXIDINE GLUCONATE 2 % 1 PACK (2 CLOTHS) TOP SCH (04:00)
[2016-12-17] MEDS: DILTIAZEM HCL 90 MG TAB PO SCH ×5 (05:33→23:16)
[2016-12-17] MEDS: BENEPROTEIN POWDER 1 PACK G-TUBE SCH ×3 (09:00→17:13)
[2016-12-17] MEDS: ARTIFICIAL TEARS OPTH SOLN 15 ML BTL EACH EYE SCH ×3 (09:00→17:13)
[2016-12-17] MEDS: BACITRACIN TOP OINT 15 GM TUBE TOPICAL SCH ×2 (09:00→20:56)
[2016-12-17] MEDS: COLLAGENASE OINT 30 GM TUBE TOPICAL SCH (09:00)
[2016-12-17] MEDS: SODIUM CHLORIDE 0.9% FLUSH 10 ML FLUSH IV FLUSH SCH ×3 (09:00→20:54)
[2016-12-17] MEDS: CHLORHEXIDINE 0.12% (ORAL KIT) 15 ML CUP MT SCH ×2 (09:00→20:00)
[2016-12-17] MEDS: POVIDONE IODINE 10% OINT 30 GM TUBE TOPICAL SCH (09:00)
[2016-12-17] MEDS: LACTOBACILLUS ACIDOPHILUS TAB PO SCH ×3 (09:18→17:13)
[2016-12-17] MEDS: FAMOTIDINE 20 MG TAB PO SCH ×2 (09:18→20:54)
[2016-12-17] MEDS: levETIRAcetam 500 MG/5 ML UDC NG SCH ×2 (09:19→20:54)
--- NOTE | 2016-12-17 15:22 | HHI.PR ---
Subjective Remarks Follow-up for placement Patient following commands but unable to verbalize clearly secondary to trach. He does not some words. He nodded that he had no concerns. By nodding no also deny any pain or shortness of breathing. Objective Vitals Vital Signs Date Time Temp Pulse Resp B/P (MAP) Pulse Ox O2 Delivery O2 Flow Rate FiO2 12/17/16 12:00 97.9 69 18 115/60 (78) 94 12/17/16 09:05 94 21 12/17/16 08:00 97.5 62 18 109/59 (76) 96 12/17/16 05:25 98.5 65 18 102/56 (71) 98 12/17/16 02:41 61 18 188/77 (114) 97 12/17/16 00:19 98.5 59 18 120/72 (88) 99 12/16/16 22:31 97 21 12/16/16 22:00 64 107/56 (73) 12/16/16 19:00 98.4 63 16 63 12/16/16 16:54 98.7 66 18 117/70 (86) 96 12/16/16 16:00 64 12/16/16 16:00 98.0 64 16 115/54 (74) 99 I/O 12/16/16 12/16/16 12/16/16 12/17/16 12/17/16 12/17/16 07:00 15:00 23:00 07:00 15:00 23:00 Intake Total 360 ml 755 ml 713 ml Output Total 800 ml 1375 ml 150 ml Balance -440 ml -620 ml 563 ml Tube Feeding 180 ml 505 ml 713 ml Other 180 ml 250 ml Output Urine Total 800 ml 1000 ml 150 ml Stool Total 0 ml 375 ml Result Diagram: 12/15/1644412/15/165 Objective Remarks GENERAL: This is a well-nourished, well-developed patient, in no apparent distress. Trach in place and capped CARDIOVASCULAR: Relatively clear to auscultation. RESPIRATORY: Clear to auscultation. Breath sounds equal bilaterally. No wheezes , rales, or rhonchi. GASTROINTESTINAL: Abdomen soft, non-tender, nondistended. Normal active bowel sounds MUSCULOSKELETAL: Extremities without clubbing, cyanosis, or edema. NEURO: follows commands and moved all 4 extremities but his left leg seems to be a lot stronger. SKIN: He does have some necrotic toes and fingers. Procedures 10/13 Four-vessel cerebral angiography with verapamil treatment of vasospasm Medications and IVs Current Medications Iohexol (Omnipaque 350 Inj) 100 ml STK-MED ONCE IVCONTRAST Last administered on 10/07/16 14:21; Start 10/07/16 at 14:21; Stop 10/07/16 at 15:21; Status DC Mannitol 50 ml @ As Directed STK-MED ONCE .ROUTE ; Start 10/07/16 at 15:25; Stop 10/07/16 at 15:26; Status DC Propofol 0 ml @ As Directed STK-MED ONCE .ROUTE ; Start 10/07/16 at 15:25; Stop 10/07/16 at 15:26; Status DC Levetriacetam (Keppra Inj) 1,000 mg STK-MED ONCE IV Last administered on 18:30; Start 10/07/16 at 15:27; Stop 10/07/16 at 15:28; Status DC Mannitol (Mannitol Inj) 50 gm ONCE ONCE IV Last administered on 10/13/16 21: 00; Start 10/07/16 at 15:30; Stop 10/07/16 at 15:31; Status DC Nicardipine HCl 25 mg/Sodium Chloride 260 ml @ 52 mls/hr Q5H PRN IV Blood pressure management; Start 10/07/16 at 15:40; Stop 10/14/16 at 21:02; Status DC Propofol 100 ml @ 0 mls/hr Q0M PRN IV Ordered RASS Last administered on 23:01; Start 10/07/16 at 15:40; Stop 10/07/16 at 23:16; Status DC Sodium Chloride 1,000 ml @ 75 mls/hr [id number] IV ; Start 10/07/16 at 16:08; Stop 10/07/16 at 18:34; Status DC Sodium Chloride (NS Flush) 2 ml UNSCH PRN IV FLUSH FLUSH AFTER USING IV ACCESS ; Start 10/07/16 at 16:15; Stop 10/07/16 at 18:40; Status DC Sodium Chloride (NS Flush) 2 ml BID IV FLUSH ; Start 10/07/16 at 21:00; Stop at 21:00; Status DC Acetaminophen (Tylenol) 650 mg Q6H PRN PO PAIN 1-10 AND/OR FEVER >101F; Start 10/07/16 at 16:15; Stop 10/07/16 at 19:04; Status DC Albuterol/ Ipratropium (Duoneb Neb) 1 ampule Q6HR NEB NEB Last administered on 10/11/16 15:16; Start 10/07/16 at 22:00; Stop 10/11/16 at 21:59; Status DC Albuterol/ Ipratropium (Duoneb Neb) 1 ampule Q4HR NEB PRN INH SHORTNESS OF BREATH Last administered on 10/14/16 19:33; Start 10/07/16 at 16:15; Stop at 09:43; Status DC Chlorhexidine Gluconate (Peridex 0.12% Liq) 15 ml BID@08,20 MT Last administered on 11/28/16 08:00; Start 10/07/16 at 20:00; Stop 11/28/16 at 11: 18; Status DC Pantoprazole Sodium (Protonix Inj) 40 mg DAILY IV ; Start 10/08/16 at 09:00; Stop 10/08/16 at 09:00; Status DC Miscellaneous Information 1 [id number] ; Start 10/07/16 at 16:15; Stop 10/19/16 at 12:07; Status DC Chlorhexidine Gluconate (Chlorhexidine 2% Cloth) Taper DAILY@04 TOP Last administered on 10/19/16 03:13; Start 10/08/16 at 04:00; Stop 10/19/16 at 12:07; Status DC Chlorhexidine Gluconate (Chlorhexidine 2% Cloth) 3 pack UNSCH PRN TOP HYGIENIC CARE; Start 10/07/16 at 16:15; Stop 10/19/16 at 12:07; Status DC Insulin Aspart (NovoLOG SUPPLEMENTAL SCALE) 1 Q6HR SQ Last administered on 06:40; Start 10/07/16 at 18:00; Stop 10/20/16 at 09:23; Status DC Propofol 100 ml @ 0 mls/hr Q0M PRN IV SEDATION; Start 10/07/16 at 16:08; Status UNV Nimodipine (Nimotop) 60 mg Q4HR OG-TUBE Last administered on 10/12/16 15:18; Start 10/07/16 at 20:00; Stop 10/12/16 at 23:47; Status DC Verapamil HCl (Isoptin Inj) 10 mg STK-MED ONCE .ROUTE ; Start 10/07/16 at 16:45 ; Stop 10/07/16 at 16:46; Status DC Nitroglycerin (Nitroglycerin 2% Oint) 1 inch STK-MED ONCE .ROUTE ; Start at 16:55; Stop 10/07/16 at 16:56; Status DC Heparin Sodium (Porcine) (Heparin Inj) 10,000 units STK-MED ONCE .ROUTE ; Start 10/07/16 at 16:56; Stop 10/07/16 at 16:57; Status DC Potassium Chloride/Sodium Chloride 1,000 ml @ 100 mls/hr Q10H IV Last administered on 10/14/16 07:08; Start 10/07/16 at 18:20; Stop 10/14/16 at 21:02; Status DC IV Flush (NS Flush) 2 ml UNSCH PRN IVF FLUSH AFTER USING IV ACCESS; Start 10/07 at 18:30; Stop 10/19/16 at 12:09; Status DC IV Flush (NS Flush) 2 ml BID IVF Last administered on 10/19/16 09:00; Start at 21:00; Stop 10/19/16 at 12:09; Status DC Cefazolin Sodium/ Dextrose 50 ml @ 100 mls/hr Q8H IV Last administered on 10/08 10:30; Start 10/07/16 at 19:00; Stop 10/08/16 at 11:29; Status DC Levetriacetam 500 mg/Sodium Chloride 105 ml @ 400 mls/hr Q12H IV Last administered on 10/31/16 05:11; Start 10/08/16 at 06:00; Stop 10/31/16 at 10:47 ; Status DC Bisacodyl (Dulcolax Supp) 10 mg DAILY PRN RECTAL CONSTIPATION; Start 10/07/16 at 18:30; Stop 10/31/16 at 10:47; Status DC Docusate Sodium (Colace) 100 mg BID PO Last administered on 10/19/16 09:00; Start 10/07/16 at 21:00; Stop 10/19/16 at 12:15; Status DC Pantoprazole Sodium (Protonix) 40 mg DAILY PO Last administered on 10/14/16 07: 47; Start 10/08/16 at 09:00; Stop 10/19/16 at 09:46; Status DC Pantoprazole Sodium (Protonix Inj) 40 mg DAILY IVP Last administered on 07:45; Start 10/08/16 at 09:00; Stop 10/12/16 at 14:30; Status DC Ondansetron HCl (Zofran Inj) 4 mg Q6H PRN IV NAUSEA OR VOMITING Last administered on 11/13/16 20:31; Start 10/07/16 at 18:30; Stop 12/08/16 at 13: 55; Status DC Calcium Gluconate (Calcium Gluconate Inj) 1 gm UNSCH PRN IV SEE LABEL COMMENTS Last administered on 10/16/16 10:00; Start 10/07/16 at 18:30; Stop 11/17/16 at 14:34; Status DC Potassium Chloride 100 ml @ 50 mls/hr UNSCH PRN IV POTASSIUM LESS THAN 4 Last administered on 12/02/16 08:13; Start 10/07/16 at 18:30; Stop 12/16/16 at 15: 01; Status DC Magnesium Sulfate 4 gm/Sodium Chloride 108 ml @ 108 mls/hr UNSCH PRN IV MAGNESIUM LESS THAN 2; Start 10/07/16 at 18:30 Acetaminophen/ Hydrocodone Bitart (Hodgen 10-325 Mg) 1 tab Q4H PRN PO PAIN SCALE 1 TO 5 Last administered on 10/13/16 13:07; Start 10/07/16 at 18:30; Stop 10/15/16 at 08:05; Status DC Acetaminophen/ Hydrocodone Bitart (Hodgen 10-325 Mg) 2 tab Q4H PRN PO PAIN SCALE 6 TO 10 Last administered on 10/09/16 10:20; Start 10/07/16 at 18:30; Stop 10/15/16 at 08:05; Status DC Morphine Sulfate (Morphine Inj) 2 mg Q2H PRN IV PUSH PAIN SCALE 1 TO 6 Last administered on 10/10/16 17:52; Start 10/07/16 at 18:30; Stop 10/15/16 at 08:05 ; Status DC Morphine Sulfate (Morphine Inj) 4 mg Q2H PRN IV PUSH PAIN SCALE 7 TO 10 Last administered on 10/08/16 01:55; Start 10/07/16 at 18:30; Stop 10/15/16 at 08:05 ; Status DC Acetaminophen (Tylenol) 650 mg Q4H PRN PO TEMP >100.4 Last administered on 11/14 03:07; Start 10/07/16 at 18:30; Stop 11/30/16 at 13:12; Status DC Iodixanol (VISIPAQUE 320 INJ (Rad Spec)) 65 ml STK-MED ONCE I-ARTERIAL Last administered on 10/07/16 18:38; Start 10/07/16 at 18:38; Stop 10/07/16 at 18:39 ; Status DC Dextrose (D50w (Vial) Inj) 50 ml UNSCH PRN IV PUSH HYPOGLYCEMIA - SEE COMMENTS Last administered on 11/01/16 09:22; Start 10/07/16 at 19:15; Stop 11/12/16 at 08:41; Status DC Glucagon (Glucagon Inj) 1 mg UNSCH PRN OTHER HYPOGLYCEMIA-SEE COMMENTS; Start 10/07/16 at 19:15; Stop 11/12/16 at 08:42; Status DC Midazolam HCl (Versed Inj) 4 mg STK-MED ONCE .ROUTE ; Start 10/07/16 at 19:51; Stop 10/07/16 at 19:52; Status DC Fentanyl Citrate (fentaNYL INJ) 250 mcg STK-MED ONCE .ROUTE ; Start 10/07/16 at 20:32; Stop 10/07/16 at 20:33; Status DC Propofol 100 ml @ 0 mls/hr TITRATE PRN IV Sedation Last administered on 05:31; Start 10/07/16 at 23:15; Stop 11/01/16 at 14:52; Status DC Epinephrine HCl (EPINEPHrine (1:10,000) INJ) 1 mg STK-MED ONCE .ROUTE ; Start at 04:09; Stop 10/09/16 at 04:10; Status DC Atropine Sulfate (Atropine Inj) 1 mg STK-MED ONCE .ROUTE ; Start 10/09/16 at 04: 09; Stop 10/09/16 at 04:10; Status DC Lidocaine HCl (Xylocaine 2% Inj) 100 mg STK-MED ONCE .ROUTE ; Start 10/09/16 at 04:09; Stop 10/09/16 at 04:10; Status DC Nimodipine (Nimotop) 60 mg Q4HR PO Last administered on 11/02/16 20:23; Start 10/13/16 at 00:00; Stop 11/02/16 at 23:59; Status DC Verapamil HCl (Isoptin Inj) 20 mg STK-MED ONCE .ROUTE Last administered on 10/13 17:10; Start 10/13/16 at 17:10; Stop 10/13/16 at 17:11; Status DC Iodixanol (VISIPAQUE 320 INJ (Rad Spec)) 45 ml STK-MED ONCE I-ARTERIAL Last administered on 10/13/16 17:40; Start 10/13/16 at 17:49; Stop 10/13/16 at 17:50 ; Status DC Midazolam HCl (Versed Inj) 2 mg STK-MED ONCE .ROUTE ; Start 10/13/16 at 18:32; Stop 10/13/16 at 18:33; Status DC Fentanyl Citrate (fentaNYL INJ) 200 mcg STK-MED ONCE .ROUTE ; Start 10/13/16 at 18:32; Stop 10/13/16 at 18:33; Status DC Sodium Chloride 2,000 ml @ 0 mls/hr Q0M IV Last administered on 10/14/16 20:20 ; Start 10/13/16 at 21:45; Stop 10/14/16 at 23:59; Status DC Phenylephrine HCl (Neosynephrine Inj) 10 mg STK-MED ONCE .ROUTE Last administered on 10/14/16 09:10; Start 10/14/16 at 09:10; Stop 10/14/16 at 09:11; Status DC Verapamil HCl (Isoptin Inj) 20 mg STK-MED ONCE .ROUTE Last administered on 10:19; Start 10/14/16 at 10:19; Stop 10/14/16 at 10:20; Status DC Fentanyl Citrate (fentaNYL INJ) 100 mcg STK-MED ONCE .ROUTE Last administered on 10/14/16 10:32; Start 10/14/16 at 10:32; Stop 10/14/16 at 10:33; Status DC Midazolam HCl (Versed Inj) 2 mg STK-MED ONCE .ROUTE Last administered on 10:32; Start 10/14/16 at 10:32; Stop 10/14/16 at 10:33; Status DC Midazolam HCl (Versed Inj) 2 mg STK-MED ONCE .ROUTE ; Start 10/14/16 at 10:32; Stop 10/14/16 at 10:33; Status DC Vasopressin 40 units/Dextrose 100 ml @ 4.5 mls/hr [id number] IV Last administered on 10/25/16 02:30; Start 10/14/16 at 11:30; Stop 10/31/16 at 10:47 ; Status DC Albumin Human (Albumin 5% Inj) 25 gm ONCE ONCE IV Last administered on 11:34; Start 10/14/16 at 11:15; Stop 10/14/16 at 11:17; Status DC Iodixanol (VISIPAQUE 320 INJ (Rad Spec)) 10 ml STK-MED ONCE I-ARTERIAL Last administered on 10/14/16 11:06; Start 10/14/16 at 11:06; Stop 10/14/16 at 11:07; Status DC Fludrocortisone Acetate (Florinef) 0.1 mg BID PO Last administered on 10/15/16 11:39; Start 10/14/16 at 11:45; Stop 10/15/16 at 13:17; Status DC Phenylephrine HCl (Neosynephrine Inj) 10 mg STK-MED ONCE .ROUTE Last administered on 10/14/16 12:18; Start 10/14/16 at 12:18; Stop 10/14/16 at 12:19; Status DC Norepinephrine Bitartrate 250 ml @ As Directed STK-MED ONCE IV ; Start 10/14/16 at 13:14; Stop 10/14/16 at 13:15; Status DC Norepinephrine Bitartrate (Levophed Inj) 4 mg STK-MED ONCE .ROUTE Last administered on 10/14/16 13:15; Start 10/14/16 at 13:15; Stop 10/14/16 at 13:16; Status DC Etomidate (Amidate Inj) 20 mg STK-MED ONCE .ROUTE Last administered on 14:18; Start 10/14/16 at 13:44; Stop 10/14/16 at 13:45; Status DC Midazolam HCl (Versed Inj) 5 mg STK-MED ONCE .ROUTE Last administered on 14:18; Start 10/14/16 at 13:44; Stop 10/14/16 at 13:45; Status DC Rocuronium [place]oughton (Zemuron Inj) 50 mg STK-MED ONCE .ROUTE Last administered on 10/14/16 14:17; Start 10/14/16 at 13:45; Stop 10/14/16 at 13:46; Status DC Fentanyl Citrate 250 ml @ 5 mls/hr TITRATE PRN IV SEDATION Last administered on 10/30/16 17:39; Start 10/14/16 at 15:00; Stop 11/01/16 at 14:52; Status DC Phenylephrine HCl (Neosynephrine Inj) 10 mg STK-MED ONCE .ROUTE Last administered on 10/14/16 14:26; Start 10/14/16 at 14:26; Stop 10/14/16 at 14:27; Status DC Norepinephrine Bitartrate 4 mg/ Sodium Chloride 250 ml @ 7.5 mls/hr TITRATE PRN IV Blood pressure management Last administered on 10/15/16 15:05; Start 10/14 at 14:45; Stop 10/15/16 at 14:54; Status DC Terbutaline Sulfate (Brethine Inj) 1 mg UNSCH PRN SQ For Extravasation; Start 10/14/16 at 14:45; Stop 10/19/16 at 12:10; Status DC Rocuronium [place] (Zemuron Inj) 50 mg STK-MED ONCE .ROUTE Last administered on 10/14/16 14:43; Start 10/14/16 at 14:43; Stop 10/14/16 at 14:44; Status DC Midazolam HCl 100 ml @ 2 mls/hr TITRATE PRN IV SEDATION Last administered on 22:54; Start 10/14/16 at 15:00; Stop 10/25/16 at 08:47; Status DC Phenylephrine HCl (Neosynephrine Inj) 10 mg STK-MED ONCE .ROUTE ; Start 10/14/16 at 18:03; Stop 10/14/16 at 18:04; Status DC Phenylephrine HCl 40 mg/Dextrose 500 ml @ 30 mls/hr TITRATE PRN IV Blood pressure management Last administered on 10/15/16 15:02; Start 10/14/16 at 18:30 ; Stop 10/15/16 at 15:36; Status DC Terbutaline Sulfate (Brethine Inj) 1 mg UNSCH PRN SQ For Extravasation; Start 10/14/16 at 18:15; Stop 10/15/16 at 08:05; Status DC Heparin Sodium (Porcine) (Heparin Inj) 5,000 units Q8HR SQ Last administered on 11/13/16 21:20; Start 10/14/16 at 22:00; Status Future Hold Isoproterenol HCl 2 mg/Dextrose 260 ml @ 23.4 mls/hr TITRATE PRN IV Hypotension Last administered on 10/14/16 21:26; Start 10/14/16 at 21:00; Stop at 16:24; Status DC Sodium Chloride 1,000 ml @ 50 mls/hr Q20H IV Last administered on 10/15/16 09: 54; Start 10/14/16 at 21:15; Stop 10/16/16 at 09:17; Status DC Phenylephrine HCl (Neosynephrine Inj) 40 mg STK-MED ONCE .ROUTE ; Start 10/14/16 at 23:30; Stop 10/14/16 at 23:31; Status DC Phenylephrine HCl (Neosynephrine Inj) 10 mg STK-MED ONCE .ROUTE ; Start 10/14/16 at 23:31; Stop 10/14/16 at 23:32; Status DC Epinephrine HCl 2 mg/Dextrose 252 ml @ 22.68 mls/ hr TITRATE PRN IV Blood Pressure Management Last administered on 10/15/16 15:03; Start 10/15/16 at 02:00 ; Stop 10/15/16 at 14:54; Status DC Epinephrine HCl (Adrenalin (1:1000) Inj) 2 mg STK-MED ONCE .ROUTE ; Start at 01:59; Stop 10/15/16 at 02:00; Status DC Lorazepam (Ativan Inj) 2 mg STK-MED ONCE .ROUTE ; Start 10/15/16 at 02:13; Stop 10/15/16 at 02:14; Status DC Epoprostenol Sodium 75 ml/ Sodium Chloride 100 ml @ 8 mls/hr Q8H NEB Last administered on 10/21/16 15:25; Start 10/15/16 at 03:00; Stop 10/21/16 at 16:05; Status DC Lorazepam (Ativan Inj) 2 mg ONCE ONCE IV PUSH Last administered on 10/15/16 03 :33; Start 10/15/16 at 02:30; Stop 10/15/16 at 02:37; Status DC Fosphenytoin Sodium 1000 mgpe/ Sodium Chloride 70 ml @ 280 mls/hr ONCE ONCE IV Last administered on 10/15/16 03:32; Start 10/15/16 at 02:30; Stop 10/15/16 at 02:44; Status DC Fosphenytoin Sodium (Cerebyx Inj) 100 mgpe Q8HR IV Last administered on 06:28; Start 10/15/16 at 10:00; Stop 10/25/16 at 14:25; Status DC Calcium Chloride 1 gm/Sodium Chloride 110 ml @ 110 mls/hr ONCE ONCE IV Last administered on 10/15/16 03:52; Start 10/15/16 at 03:15; Stop 10/15/16 at 04:14; Status DC Pharmacy Profile Note 0 ml @ 0 mls/hr UNSCH OTHER ; Start 10/15/16 at 03:30; Stop 10/18/16 at 07:20; Status DC Cefepime HCl 2000 mg/Sodium Chloride 100 ml @ 200 mls/hr Q8H IV Last administered on 10/18/16 03:34; Start 10/15/16 at 04:00; Stop 10/18/16 at 07:20; Status DC Azithromycin 500 mg/Sodium Chloride 250 ml @ 250 mls/hr Q24H IV Last administered on 10/18/16 03:34; Start 10/15/16 at 04:00; Stop 10/18/16 at 07:20; Status DC Albuterol/ Ipratropium (Duoneb Neb) 1 ampule Q4HR WHILE AWAKE NEB NEB Last administered on 10/18/16 20:21; Start 10/15/16 at 08:00; Stop 10/19/16 at 07:59; Status DC Vancomycin HCl 1000 mg/Sodium Chloride 250 ml @ 250 mls/hr ONCE ONCE IV Last administered on 10/15/16 07:02; Start 10/15/16 at 05:00; Stop 10/15/16 at 05:59; Status DC Hydrocortisone Sodium Succinate (SoluCORTEF INJ) 100 mg Q8H IV PUSH Last administered on 10/22/16 04:34; Start 10/15/16 at 04:00; Stop 10/22/16 at 10:29; Status DC Phenylephrine HCl (Neosynephrine Inj) 20 mg STK-MED ONCE .ROUTE ; Start 10/15/16 at 04:35; Stop 10/15/16 at 04:36; Status DC Sodium Chloride 500 ml @ 30 mls/hr CONTINUOUS IV Last administered on 11:43; Start 10/15/16 at 08:00; Stop 10/22/16 at 10:29; Status DC Calcium Gluconate 2 gm/Sodium Chloride 120 ml @ 120 mls/hr ONCE ONCE IV Last administered on 10/15/16 09:26; Start 10/15/16 at 09:00; Stop 10/15/16 at 09:59; Status DC Albumin Human (Albumin 5% Inj) 12.5 gm STK-MED ONCE IV Last administered on 10/15 09:17; Start 10/15/16 at 09:17; Stop 10/15/16 at 09:18; Status DC Rocuronium [place] (Zemuron Inj) 50 mg STK-MED ONCE .ROUTE Last administered on 10/15/16 09:50; Start 10/15/16 at 09:50; Stop 10/15/16 at 09:51; Status DC Vancomycin HCl 1250 mg/Sodium Chloride 262.5 ml @ 262.5 mls/ hr Q12H IV Last administered on 10/17/16 05:57; Start 10/15/16 at 18:00; Stop 10/17/16 at 09:41; Status DC Miscellaneous Information SPECIFIC LAB TO BE ... ONCE ONCE .XX Last administered on 10/17/16 05:45; Start 10/17/16 at 05:45; Stop 10/17/16 at 05:46; Status DC Cisatracurium Besylate 100 mg/ Sodium Chloride 260 ml @ 11.24 mls/ hr TITRATE PRN IV TOF / Last administered on 10/21/16 12:59; Start 10/15/16 at 13:00; Stop 10/31/16 at 10:47; Status DC Sodium Chloride 240 meq/Syringe / Bag 60 ml @ 120 mls/hr ONCE ONCE IV Last administered on 10/15/16 13:25; Start 10/15/16 at 13:15; Stop 10/15/16 at 13:44; Status DC Sodium Chloride (Sodium Chloride) 3 gm TID PO Last administered on 11/04/16 10 :18; Start 10/15/16 at 13:15; Stop 11/04/16 at 11:21; Status DC Fludrocortisone Acetate (Florinef) 0.2 mg BID PO Last administered on 10/16/16 08:12; Start 10/15/16 at 21:00; Stop 10/16/16 at 09:12; Status DC Epinephrine HCl 2 mg/Dextrose 252 ml @ 22.68 mls/ hr TITRATE PRN IV Blood Pressure Management; Start 10/15/16 at 15:00; Stop 10/15/16 at 15:32; Status DC Norepinephrine Bitartrate 4 mg/ Sodium Chloride 250 ml @ 7.5 mls/hr TITRATE PRN IV Blood pressure management; Start 10/15/16 at 15:00; Stop 10/15/16 at 15:56 ; Status DC Sodium Chloride 240 meq/Syringe / Bag 60 ml @ 120 mls/hr ONCE ONCE IV Last administered on 10/15/16 15:33; Start 10/15/16 at 15:30; Stop 10/15/16 at 15:59; Status DC Epinephrine HCl 8 mg/Dextrose 250 ml @ 5.62 mls/hr TITRATE PRN IV Blood Pressure Management Last administered on 10/17/16 08:30; Start 10/15/16 at 15:30 ; Stop 10/17/16 at 10:08; Status DC Phenylephrine HCl 160 mg/Dextrose 500 ml @ 7.5 mls/hr TITRATE PRN IV Blood Pressure Management Last administered on 10/18/16 09:34; Start 10/15/16 at 15:45 ; Stop 10/17/16 at 10:08; Status DC Terbutaline Sulfate (Brethine Inj) 1 mg UNSCH PRN SQ FOR EXTRAVASATION PROTOCOL ; Start 10/15/16 at 15:45; Stop 11/01/16 at 07:51; Status DC Norepinephrine Bitartrate 16 mg/ Sodium Chloride 250 ml @ 1.87 mls/hr TITRATE PRN IV Blood pressure management Last administered on 10/17/16 09:11; Start 10/15 at 16:00; Stop 10/17/16 at 10:08; Status DC Calcium Gluconate 3 gm/Sodium Chloride 130 ml @ 120 mls/hr ONCE ONCE IV Last administered on 10/16/16 09:48; Start 10/16/16 at 10:00; Stop 10/16/16 at 11:04; Status DC Sodium Chloride 240 meq/Syringe / Bag 60 ml @ 120 mls/hr ONCE ONCE IV Last administered on 10/16/16 09:48; Start 10/16/16 at 10:00; Stop 10/16/16 at 10:29; Status DC Magnesium Oxide (Mag-Ox) 800 mg UNSCH PRN PO For Magnesium 1.2 - 1.6 mg/dL; Start 10/16/16 at 09:15; Stop 11/25/16 at 09:51; Status DC Magnesium Sulfate 4 gm/Sodium Chloride 100 ml @ 50 mls/hr UNSCH PRN IV For Magnesium 0.9 - 1.1 mg/dL; Start 10/16/16 at 09:15; Stop 11/25/16 at 09:51; Status DC Magnesium Sulfate 2 gm/Sodium Chloride 100 ml @ 50 mls/hr UNSCH PRN IV For Magnesium 1.2 - 1.6 mg/dL; Start 10/16/16 at 09:15; Stop 11/25/16 at 09:51; Status DC Potassium Chloride 100 ml @ 50 mls/hr Q2H PRN IV For Potassium 2.8 - 3.2 mEq/ L Last administered on 11/15/16 12:36; Start 10/16/16 at 09:15; Stop 11/25/16 at 09:51; Status DC Potassium Chloride 100 ml @ 50 mls/hr Q2H PRN IV For Potassium 3.3 - 3.5 mEq/L ; Start 10/16/16 at 09:15; Stop 11/25/16 at 09:51; Status DC Potassium Chloride 100 ml @ 50 mls/hr Q2H PRN IV For Potassium 2.8 - 3.2 mEq/ L Last administered on 10/27/16 13:26; Start 10/16/16 at 09:15; Stop 11/25/16 at 09:51; Status DC Potassium Chloride 100 ml @ 25 mls/hr UNSCH PRN IV For Potassium 3.3 - 3.5 mEq /L Last administered on 10/30/16 06:06; Start 10/16/16 at 09:15; Stop 11/25/16 at 09:51; Status DC Potassium Phosphate (K-Phos) 2,000 mg Q4H PRN PO For Phosphorus < 2.5 mg/dL; Start 10/16/16 at 09:15; Stop 11/25/16 at 09:51; Status DC Potassium Phosphate (K-Phos) 2,000 mg UNSCH PRN PO/TUBE SEE LABEL COMMENTS; Start 10/16/16 at 09:15; Stop 11/25/16 at 09:51; Status DC Potassium Phosphate 30 mmol/ Sodium Chloride 260 ml @ 42 mls/hr UNSCH PRN IV SEE LABEL COMMENTS Last administered on 10/24/16 20:39; Start 10/16/16 at 09:15 ; Stop 11/25/16 at 09:51; Status DC Sodium Phosphate 30 mmol/Sodium Chloride 250 ml @ 42 mls/hr UNSCH PRN IV For Phosphorus < 2.5 mg/dL Last administered on 10/22/16 06:46; Start 10/16/16 at 09: 15; Stop 11/25/16 at 09:51; Status DC Furosemide (Lasix Inj) 40 mg STK-MED ONCE .ROUTE Last administered on 10/16/16 13:27; Start 10/16/16 at 13:27; Stop 10/16/16 at 13:28; Status DC Vancomycin HCl 1250 mg/Sodium Chloride 262.5 ml @ 250 mls/hr Q8H IV Last administered on 10/18/16 06:10; Start 10/17/16 at 14:00; Stop 10/18/16 at 07:20; Status DC Miscellaneous Information SPECIFIC LAB TO BE ... ONCE ONCE .XX Last administered on 10/18/16 05:45; Start 10/18/16 at 05:45; Stop 10/18/16 at 05:46; Status DC Sodium Chloride 1,000 ml @ 999 mls/hr BOLUS ONCE IV Last administered on 10:45; Start 10/17/16 at 11:00; Stop 10/17/16 at 12:00; Status DC Epinephrine HCl 8 mg/Dextrose 250 ml @ 5.62 mls/hr TITRATE PRN IV Blood Pressure Management; Start 10/17/16 at 10:15; Status Cancel Norepinephrine Bitartrate 16 mg/ Sodium Chloride 250 ml @ 1.87 mls/hr TITRATE PRN IV Blood pressure management Last administered on 10/20/16 01:07; Start 10/17 at 10:15; Stop 10/31/16 at 10:47; Status DC Phenylephrine HCl 160 mg/Dextrose 500 ml @ 7.5 mls/hr TITRATE PRN IV Blood Pressure Management Last administered on 10/23/16 14:21; Start 10/17/16 at 10:15 ; Stop 10/29/16 at 11:49; Status DC Epinephrine HCl 8 mg/Dextrose 250 ml @ 5.62 mls/hr TITRATE PRN IV Blood Pressure Management Last administered on 10/20/16 15:14; Start 10/17/16 at 11:15 ; Stop 10/29/16 at 11:49; Status DC Heparin Sodium (Porcine) (*HEPARIN INJ Periprocedural ONLY) 10,000 units STK- MED ONCE .ROUTE Last administered on 10/17/16 14:54; Start 10/17/16 at 14:54; Stop 10/17/16 at 14:55; Status DC Verapamil HCl (Isoptin Inj) 20 mg STK-MED ONCE .ROUTE Last administered on 15:34; Start 10/17/16 at 15:34; Stop 10/17/16 at 15:35; Status DC Iodixanol (VISIPAQUE 320 INJ (Rad Spec)) 40 ml STK-MED ONCE I-ARTERIAL Last administered on 10/17/16 16:00; Start 10/17/16 at 16:31; Stop 10/17/16 at 16:32; Status DC Sodium Chloride 1,000 ml @ 100 mls/hr Q10H IV Last administered on 10/18/16 03 :35; Start 10/17/16 at 18:00; Stop 10/18/16 at 07:06; Status DC Potassium Chloride (KCl Powder) 60 meq ONCE ONCE NG Last administered on 08:52; Start 10/18/16 at 09:00; Stop 10/18/16 at 09:01; Status DC Calcium Gluconate 1 gm/Sodium Chloride 110 ml @ 110 mls/hr UNSCH PRN IV For Protein Corrected Calcium Last administered on 10/18/16 10:22; Start 10/18/16 at 09:45 Gentamicin Sulfate (Gentamicin Inj) 240 mg STK-MED ONCE IRRIGATION ; Start 10/07 at 12:00; Stop 10/18/16 at 12:13; Status DC Thrombin (Thrombin Top Soln) 5,000 units STK-MED ONCE TOPICAL ; Start 10/07/16 at 12:00; Stop 10/18/16 at 12:13; Status DC Gelatin (Gelfoam 100 Top) 1 foam STK-MED ONCE OTHER ; Start 10/07/16 at 12:00; Stop 10/18/16 at 12:13; Status DC Propofol (Diprivan 200 Mg/20 ml Inj) 200 mg STK-MED ONCE IV ; Start 10/07/16 at 12:00; Stop 10/18/16 at 12:16; Status DC Ephedrine Sulfate (ePHEDrine/NS 25 MG/5 ML SYR) 25 mg STK-MED ONCE IV ; Start at 12:00; Stop 10/18/16 at 12:16; Status DC Phenylephrine HCl (Neosynephrine/ NS 1000 Mcg/10ml Syr) 1,000 mcg STK-MED ONCE IV ; Start 10/07/16 at 12:00; Stop 10/18/16 at 12:16; Status DC Lactated Ringer's 1,000 ml @ As Directed STK-MED ONCE IV ; Start 10/07/16 at 12 :00; Stop 10/18/16 at 12:16; Status DC Milrinone Lactate 20 mg/Sodium Chloride 100 ml @ 12.42 mls/ hr Q8H4M IV Last administered on 10/22/16 09:23; Start 10/18/16 at 16:21; Stop 10/22/16 at 19:37; Status DC Lansoprazole (Prevacid Odt) 30 mg DAILY NG Last administered on 12/16/16 08:54 ; Start 10/20/16 at 09:00; Stop 12/16/16 at 15:01; Status DC Lansoprazole (Prevacid Odt) 30 mg ONCE ONCE NG Last administered on 10/19/16 12:11; Start 10/19/16 at 12:00; Stop 10/19/16 at 12:02; Status DC Sodium Chloride (NS Flush) 2 ml UNSCH PRN IV FLUSH FLUSH AFTER USING IV ACCESS ; Start 10/19/16 at 09:45 Sodium Chloride (NS Flush) 2 ml BID IV FLUSH Last administered on 12/17/16 09: 00; Start 10/19/16 at 21:00 Artificial Tears (Tears Naturale Opth Soln) 1 drop TID EACH EYE Last administered on 12/17/16 09:00; Start 10/19/16 at 13:00 Ondansetron HCl (Zofran Inj) 4 mg Q6H PRN IV NAUSEA OR VOMITING; Start 10/19/16 at 09:45; Status UNV Albuterol/ Ipratropium (Duoneb Neb) 1 ampule Q6HR NEB INH Last administered on 10/23/16 08:36; Start 10/19/16 at 12:00; Stop 10/23/16 at 11:59; Status DC Albuterol Sulfate (Albuterol Neb) 2.5 mg Q2HR NEB PRN INH SOB/WHEEZING Last administered on 11/22/16 22:09; Start 10/19/16 at 09:45 Miscellaneous Information 1 [id number] XX ; Start 10/19/16 at 09:45 Chlorhexidine Gluconate (Chlorhexidine 2% Cloth) 3 pack Taper DAILY@04 TOP Last administered on 12/14/16 03:08; Start 10/20/16 at 04:00; Stop 10/16/17 at 03 :59 Chlorhexidine Gluconate (Chlorhexidine 2% Cloth) 3 pack UNSCH PRN TOP HYGIENIC CARE; Start 10/19/16 at 09:45 Docusate Sodium (Colace Liq) 100 mg Q12HR PO Last administered on 10/30/16 07: 55; Start 10/19/16 at 21:00; Stop 10/31/16 at 10:47; Status DC Sennosides (Senna Liq) 8.8 mg BID PO Last administered on 10/29/16 20:15; Start 10/19/16 at 21:00; Stop 10/31/16 at 10:47; Status DC Polyethylene Glycol (Miralax) 17 gm BID OG-TUBE Last administered on 10/29/16 20:15; Start 10/19/16 at 21:00; Stop 10/31/16 at 10:47; Status DC Pharmacy Profile Note 0 ml @ 0 mls/hr UNSCH OTHER ; Start 10/19/16 at 10:15; Stop 10/24/16 at 11:41; Status DC Piperacillin Sod/ Tazobactam Sod 100 ml @ 200 mls/hr Q6H IV Last administered on 10/23/16 05:39; Start 10/19/16 at 12:00; Stop 10/23/16 at 09:43; Status DC Vancomycin HCl 1500 mg/Sodium Chloride 515 ml @ 257.5 mls/ hr Q8H IV Last administered on 10/22/16 04:38; Start 10/19/16 at 13:00; Stop 10/22/16 at 13:55; Status DC Miscellaneous Information SPECIFIC LAB TO BE DRAWN:VANCOMYCIN TROUGH DATE TO... ONCE ONCE .XX Last administered on 10/20/16 12:45; Start 10/20/16 at 12:45; Stop 10/20/16 at 12:46; Status DC Verapamil HCl (Isoptin Inj) 5 mg STK-MED ONCE .ROUTE ; Start 10/19/16 at 12:44; Stop 10/19/16 at 12:45; Status DC Verapamil HCl (Isoptin Inj) 15 mg STK-MED ONCE .ROUTE ; Start 10/19/16 at 12:44; Stop 10/19/16 at 12:45; Status DC Iodixanol (VISIPAQUE 320 INJ (Rad Spec)) 30 ml STK-MED ONCE I-ARTERIAL Last administered on 10/19/16 13:50; Start 10/19/16 at 14:05; Stop 10/19/16 at 14:06; Status DC Lactulose (Lactulose Liq) 30 ml BID OG-TUBE Last administered on 10/31/16 20: 30; Start 10/20/16 at 21:00; Stop 11/01/16 at 07:51; Status DC Mineral Oil (Kondremul Liq) 30 ml ONCE ONCE PO ; Start 10/20/16 at 09:15; Stop 10/20/16 at 09:16; Status Cancel Methylnaltrexone Houghton (Relistor Inj) 12 mg ONCE ONCE SQ Last administered on 10/20/16 14:17; Start 10/20/16 at 09:15; Stop 10/20/16 at 09:39; Status DC Insulin Aspart (NovoLOG SUPPLEMENTAL SCALE) 1 Q4HR SQ Last administered on 10/27 11:57; Start 10/20/16 at 12:00; Stop 11/03/16 at 12:42; Status DC Multivitamins 10 ml/Folic Acid 1 mg/Amino Acids/ Electrolytes/ Dextrose 2,010.2 ml @ 30 mls/hr Q24H IV-CENTRAL Last administered on 10/28/16 20:01; Start 10/20/16 at 20:00; Stop 10/31/16 at 10:47; Status DC Fat Emulsion Intravenous 250 ml @ 10 mls/hr Q24H IV-CENTRAL Last administered on 10/29/16 19:58; Start 10/20/16 at 20:00; Stop 10/31/16 at 10:47; Status DC Mineral Oil (Mineral Oil Liq) 30 ml ONCE ONCE PO ; Start 10/20/16 at 14:00; Stop 10/20/16 at 14:01; Status Cancel Mineral Oil (Mineral Oil Liq) 30 ml ONCE ONCE PO Last administered on 15:32; Start 10/20/16 at 14:00; Stop 10/20/16 at 14:01; Status DC Potassium Phosphate 30 mmol/ Sodium Chloride 260 ml @ 43.333 mls/ hr ONCE ONCE IV ; Start 10/20/16 at 18:00; Stop 10/20/16 at 23:59; Status DC Potassium Chloride 100 ml @ 25 mls/hr BOLUS ONCE IV Last administered on 17:17; Start 10/20/16 at 17:00; Stop 10/20/16 at 20:59; Status DC Miscellaneous Information SPECIFIC LAB TO BE LI... ONCE ONCE .XX Last administered on 10/22/16 12:45; Start 10/22/16 at 12:45; Stop 10/22/16 at 12:46; Status DC Diltiazem HCl 125 mg/Sodium Chloride 125 ml @ 5 mls/hr TITRATE PRN IV Tachycardia Last administered on 10/27/16 08:13; Start 10/22/16 at 10:30; Stop 10/28/16 at 18:49; Status DC Hydrocortisone Sodium Succinate (SoluCORTEF INJ) 75 mg Q8H IV PUSH Last administered on 10/24/16 04:05; Start 10/22/16 at 12:00; Stop 10/24/16 at 09:40 ; Status DC Milrinone Lactate 20 mg/Sodium Chloride 100 ml @ 9.79 mls/hr [id number] IV Last administered on 10/30/16 03:35; Start 10/22/16 at 10:23; Stop 11/01/16 at 07:51 ; Status DC Furosemide (Lasix Inj) 40 mg NOW ONCE IV PUSH Last administered on 10/22/16 14 :46; Start 10/22/16 at 14:30; Stop 10/22/16 at 14:31; Status DC Furosemide 100 mg/ Sodium Chloride 100 ml @ 10 mls/hr CONTINUOUS IV Last administered on 10/24/16 01:16; Start 10/22/16 at 15:00; Stop 10/24/16 at 11:17 ; Status DC Vancomycin HCl 1500 mg/Sodium Chloride 515 ml @ 257.5 mls/ hr Q12H IV Last administered on 10/23/16 08:32; Start 10/23/16 at 09:00; Stop 10/23/16 at 09:43 ; Status DC Potassium Chloride 100 ml @ 25 mls/hr Q4H IV Last administered on 10/22/16 18: 05; Start 10/22/16 at 15:00; Stop 10/22/16 at 22:59; Status DC Miscellaneous Information SPECIFIC LAB TO BE LI... ONCE ONCE .XX ; Start 10/25 at 08:45; Stop 10/25/16 at 08:45; Status DC Potassium Chloride 100 ml @ 25 mls/hr Q4H IV Last administered on 10/23/16 19 :46; Start 10/23/16 at 18:30; Stop 10/24/16 at 02:29; Status DC Hydrocortisone Sodium Succinate (SoluCORTEF INJ) 50 mg Q12H IV PUSH Last administered on 10/25/16 04:42; Start 10/24/16 at 16:00; Stop 10/25/16 at 08:37 ; Status DC Insulin Detemir (Levemir Inj) 12 units Q12HR SQ Last administered on 10/28/16 09:23; Start 10/24/16 at 09:45; Stop 10/28/16 at 18:30; Status DC Furosemide 100 mg/ Sodium Chloride 100 ml @ 5 mls/hr CONTINUOUS IV Last administered on 10/27/16 08:12; Start 10/24/16 at 12:00; Stop 10/27/16 at 08:59 ; Status DC Hydrocortisone Sodium Succinate (SoluCORTEF INJ) 25 mg Q12H IV PUSH Last administered on 10/27/16 04:14; Start 10/25/16 at 16:00; Stop 10/27/16 at 08:59 ; Status DC Acetazolamide Sodium (Diamox Inj) 500 mg DAILY IV PUSH Last administered on 08:15; Start 10/25/16 at 09:00; Stop 10/28/16 at 03:25; Status DC Phenytoin Sodium (Dilantin Inj) 100 mg Q8HR IV Last administered on 11/01/16 05:30; Start 10/25/16 at 22:00; Stop 11/01/16 at 07:52; Status DC Furosemide (Lasix Inj) 40 mg DAILY IV PUSH Last administered on 11/09/16 09:11 ; Start 10/28/16 at 09:00; Stop 11/09/16 at 10:18; Status DC Sodium Chloride 1,000 ml @ 30 mls/hr Q24H IV Last administered on 10/28/16 19 :30; Start 10/28/16 at 05:45; Stop 10/29/16 at 11:49; Status DC Dextrose (D50w (Syr) Inj) 50 ml STK-MED ONCE .ROUTE ; Start 10/28/16 at 17:41; Stop 10/28/16 at 17:42; Status DC Insulin Detemir (Levemir Inj) 8 units Q12HR SQ Last administered on 10/29/16 08:28; Start 10/28/16 at 21:00; Stop 11/01/16 at 14:52; Status DC Protein (Beneprotein Powder) 1 pack TID G-TUBE Last administered on 12/14/16 12:08; Start 10/29/16 at 13:00; Stop 12/14/16 at 13:57; Status DC Diltiazem HCl (Cardizem) 60 mg Q6HR PO Last administered on 11/02/16 04:46; Start 10/29/16 at 13:00; Stop 11/02/16 at 07:19; Status DC Levetriacetam (Keppra Liq) 500 mg Q12HR NG Last administered on 12/17/16 09: 19; Start 10/31/16 at 21:00 Cisatracurium Besylate (Nimbex Inj) 20 mg ONCE ONCE IV ; Start 11/01/16 at 07: 45; Stop 11/01/16 at 07:55; Status DC Midazolam HCl (Versed Inj) 10 mg ONCE ONCE IV PUSH Last administered on 11:36; Start 11/01/16 at 07:45; Stop 11/01/16 at 07:53; Status DC Fentanyl Citrate (fentaNYL INJ) 250 mcg ONCE ONCE IV PUSH Last administered on 11/01/16 11:37; Start 11/01/16 at 07:45; Stop 11/01/16 at 07:53; Status DC Lactulose (Lactulose Liq) 30 ml QID OG-TUBE Last administered on 11/11/16 12: 28; Start 11/01/16 at 09:00; Stop 11/12/16 at 08:36; Status DC Phenytoin (Dilantin Liq) 100 mg Q8HR PO Last administered on 11/06/16 06:34; Start 11/01/16 at 14:00; Stop 11/06/16 at 12:28; Status DC Cisatracurium Besylate (Nimbex Inj) 20 mg ONCE ONCE IV Last administered on 11:36; Start 11/01/16 at 09:15; Stop 11/01/16 at 09:16; Status DC Oxycodone HCl (Roxicodone Intensol Liq) 10 mg Q4H PRN PO pain 1-6 Last administered on 11/11/16 02:28; Start 11/01/16 at 15:00; Stop 11/24/16 at 11: 19; Status DC Hydromorphone HCl (Dilaudid Pf Inj) 0.5 mg Q4H PRN IV PUSH pain 7-10 or not taking po Last administered on 11/19/16 01:42; Start 11/01/16 at 15:00; Stop 11/29/16 at 12:24; Status DC Haloperidol Lactate (Haldol Inj) 5 mg Q4H PRN IV PUSH agitation; Start at 15:00; Stop 11/29/16 at 14:45; Status DC Melatonin (Melatonin) 5 mg HS PO Last administered on 12/16/16 22:05; Start at 21:00 Diltiazem HCl (Cardizem) 90 mg Q6HR PO Last administered on 12/17/16 12:40; Start 11/02/16 at 12:00 Pharmacy Profile Note 0 ml @ 0 mls/hr UNSCH OTHER ; Start 11/02/16 at 15:30; Stop 11/06/16 at 15:48; Status DC Vancomycin HCl 1250 mg/Sodium Chloride 262.5 ml @ 250 mls/hr Q8H IV Last administered on 11/04/16 02:20; Start 11/02/16 at 18:00; Stop 11/05/16 at 16:14 ; Status DC Cefepime HCl 2000 mg/Sodium Chloride 100 ml @ 200 mls/hr Q8H IV Last administered on 11/06/16 08:42; Start 11/02/16 at 17:00; Stop 11/06/16 at 15:48 ; Status DC Metronidazole 100 ml @ 100 mls/hr Q6H IV Last administered on 11/04/16 09:26 ; Start 11/02/16 at 16:00; Stop 11/04/16 at 11:21; Status DC Miscellaneous Information SPECIFIC LAB TO BE DRAWN:VANCOMYCIN TROUGH DATE TO... ONCE ONCE .XX ; Start 11/03/16 at 17:45; Stop 11/03/16 at 17:46; Status DC Insulin Aspart (NovoLOG SUPPLEMENTAL SCALE) 1 Q12H SQ Last administered on 11/04 00:42; Start 11/03/16 at 12:00; Stop 11/12/16 at 08:40; Status DC Potassium Chloride 100 ml @ 50 mls/hr Q2H IV ; Start 11/03/16 at 15:00; Stop at 16:58; Status DC Miscellaneous Information SPECIFIC LAB TO BE DRAWN:VANCOMYCIN TROUGH DATE TO... ONCE ONCE .XX Last administered on 11/04/16 01:45; Start 11/04/16 at 01:45; Stop 11/04/16 at 01:46; Status DC Sodium Chloride 1,000 ml @ 84 mls/hr [id number] IV Last administered on 13:02; Start 11/04/16 at 11:15; Stop 11/05/16 at 11:14; Status DC Vancomycin HCl 1250 mg/Sodium Chloride 262.5 ml @ 250 mls/hr Q12H IV Last administered on 11/06/16 06:34; Start 11/05/16 at 18:00; Stop 11/06/16 at 15:48 ; Status DC Miscellaneous Information SPECIFIC LAB TO BE LI... ONCE ONCE .XX ; Start 11/07 at 05:45; Stop 11/07/16 at 05:45; Status DC Aztreonam 1000 mg/ Sodium Chloride 100 ml @ 200 mls/hr Q8H IV Last administered on 11/08/16 08:00; Start 11/06/16 at 16:00; Stop 11/08/16 at 12:55 ; Status DC Lactobacillus Acidophilus (Lactinex) 1 tab TID PO Last administered on 12:16; Start 11/06/16 at 18:00; Stop 12/14/16 at 13:57; Status DC Fluconazole (Diflucan) 100 mg DAILY PO Last administered on 11/16/16 09:23; Start 11/06/16 at 16:00; Stop 11/16/16 at 13:20; Status DC Norepinephrine Bitartrate (Levophed Inj) 4 mg STK-MED ONCE .ROUTE ; Start at 02:02; Stop 11/07/16 at 02:03; Status DC Chlorhexidine Gluconate (Hibiclens 4% Top Soln) 1 applic HS TOP Last administered on 11/07/16 23:28; Start 11/07/16 at 21:00; Stop 11/08/16 at 09:58 ; Status DC Prednisone (Deltasone) 20 mg BID PO Last administered on 11/09/16 21:08; Start 11/08/16 at 13:00; Stop 11/09/16 at 21:01; Status DC Levofloxacin (Levaquin) 750 mg DAILY PO Last administered on 11/15/16 08:23; Start 11/08/16 at 13:00; Stop 11/15/16 at 12:59; Status DC Furosemide (Lasix Liq) 20 mg DAILY NG Last administered on 12/01/16 08:38; Start 11/09/16 at 10:30; Stop 12/02/16 at 09:49; Status DC Cefazolin Sodium 1000 mg/Sodium Chloride 100 ml @ 200 mls/hr NOW ONCE IV ; Start 11/12/16 at 15:30; Stop 11/12/16 at 15:59; Status DC Water (Free Water) 200 ml Q6HR G-TUBE Last administered on 11/15/16 18:00; Start 11/14/16 at 18:45; Stop 11/15/16 at 18:50; Status DC Potassium Bicarb/ Potassium Chloride (K-Lyte Cl Eff) 50 meq NOW ONCE PO Last administered on 11/15/16 10:44; Start 11/15/16 at 08:30; Stop 11/15/16 at 08:31 ; Status DC Water (Free Water) 300 ml Q4HR G-TUBE Last administered on 11/20/16 16:00; Start 11/15/16 at 20:00; Stop 11/21/16 at 20:04; Status DC Acetylcysteine (Mucomyst 20% Neb) 2 ml Q6HR NEB NEB Last administered on 04:24; Start 11/16/16 at 10:00; Stop 11/20/16 at 09:59; Status DC Albuterol/ Ipratropium (Duoneb Neb) 1 ampule Q6HR NEB NEB Last administered on 11/20/16 08:04; Start 11/16/16 at 10:00; Stop 11/20/16 at 09:59; Status DC Metoclopramide HCl (Reglan Inj) 10 mg Q8H IV PUSH Last administered on 09:40; Start 11/18/16 at 02:00; Stop 12/02/16 at 09:51; Status DC Ondansetron HCl (Zofran Inj) 4 mg Q6H PRN IV PUSH nausea; Start 11/18/16 at 01: 45 Sodium Chloride 1,000 ml @ 999 mls/hr BOLUS ONCE IV Last administered on 11/18 01:58; Start 11/18/16 at 02:00; Stop 11/18/16 at 03:00; Status DC Bacitracin (Baciguent Oint) 1 applic Q12HR TOPICAL Last administered on 09:00; Start 11/18/16 at 11:00 Levofloxacin (Levaquin) 750 mg DAILY PO Last administered on 11/25/16 09:19; Start 11/18/16 at 12:00; Stop 11/25/16 at 11:59; Status DC Sodium Chloride 1,000 ml @ 75 mls/hr [id number] IV Last administered on 01:08; Start 11/18/16 at 13:00; Stop 11/19/16 at 12:59; Status DC Protein (Beneprotein Powder) 1 pack TID G-TUBE Last administered on 12/17/16 12:41; Start 11/19/16 at 09:00 Water (Free Water) VOLUME OF WATER: 200 ML Q6HR G-TUBE Last administered on 18:00; Start 11/22/16 at 00:00; Stop 11/26/16 at 18:43; Status DC Albuterol/ Ipratropium (Duoneb Neb) 1 ampule QID NEB NEB Last administered on 11/27/16 11:55; Start 11/23/16 at 16:00; Stop 11/27/16 at 15:59; Status DC Povidone Iodine (Betadine 10% Oint) 1 applic DAILY TOPICAL Last administered on 12/17/16 09:00; Start 11/24/16 at 09:00 Oxycodone HCl (Roxicodone Intensol Liq) 10 mg Q4H PRN PO PAIN SCALE 1 TO 6; Start 11/24/16 at 11:30; Stop 11/29/16 at 14:38; Status DC Midazolam HCl (Versed Inj) 5 mg STK-MED ONCE .ROUTE Last administered on 16:24; Start 11/26/16 at 16:24; Stop 11/26/16 at 16:25; Status DC Rocuronium [place]oughton (Zemuron Inj) 100 mg STK-MED ONCE .ROUTE Last administered on 11/26/16 18:19; Start 11/26/16 at 16:24; Stop 11/26/16 at 16:25; Status DC Propofol 50 ml @ As Directed STK-MED ONCE .ROUTE Last administered on 18:29; Start 11/26/16 at 16:53; Stop 11/26/16 at 16:54; Status DC Chlorhexidine Gluconate (Peridex 0.12% Liq) 15 ml BID@08,20 MT Last administered on 12/17/16 09:00; Start 11/26/16 at 20:00 Propofol 100 ml @ 1.668 mls/ hr TITRATE PRN IV SEDATION Last administered on 11/26/16 21:29; Start 11/26/16 at 18:45; Stop 12/12/16 at 16:47; Status DC Fentanyl Citrate (fentaNYL INJ) 100 mcg Q1H PRN IV PUSH any pain; Start at 18:45; Stop 11/29/16 at 14:38; Status DC Fentanyl Citrate 250 ml @ 5 mls/hr TITRATE PRN IV SEDATION Last administered on 11/29/16 06:30; Start 11/26/16 at 18:45; Stop 12/12/16 at 16:47; Status DC Propofol 50 ml @ As Directed STK-MED ONCE .ROUTE Last administered on 18:47; Start 11/26/16 at 18:43; Stop 11/26/16 at 18:44; Status DC Cisatracurium Besylate (Nimbex Inj) 11 mg ONCE ONCE IV PUSH Last administered on 11/26/16 19:30; Start 11/26/16 at 18:45; Stop 11/26/16 at 18:50; Status DC Cisatracurium Besylate 100 mg/ Sodium Chloride 260 ml @ 8.67 mls/hr TITRATE PRN IV TOF 1/4 Last administered on 11/28/16 06:25; Start 11/26/16 at 18:45; Stop 11/28/16 at 10:46; Status DC Epinephrine HCl (EPINEPHrine (1:10,000) INJ) 1 mg STK-MED ONCE .ROUTE ; Start 11/26/16 at 20:06; Stop 11/26/16 at 20:07; Status DC Atropine Sulfate (Atropine Inj) 1 mg STK-MED ONCE .ROUTE ; Start 11/26/16 at 20 :06; Stop 11/26/16 at 20:07; Status DC Lidocaine HCl (Xylocaine 2% Inj) 100 mg STK-MED ONCE .ROUTE ; Start 11/26/16 at 20:07; Stop 11/26/16 at 20:08; Status DC Iohexol (Omnipaque 350 Inj) 95 ml STK-MED ONCE IVCONTRAST Last administered on 11/26/16 20:20; Start 11/26/16 at 20:20; Stop 11/26/16 at 20:21; Status DC Lactated Ringer's 1,000 ml @ 84 mls/hr [id number] IV ; Start 11/26/16 at 23:00; Stop 11/27/16 at 01:37; Status DC Sodium Chloride 500 ml @ 50 mls/hr Q10H IV Last administered on 11/27/16 01: 50; Start 11/27/16 at 01:45; Stop 11/27/16 at 11:44; Status DC Midazolam HCl 100 ml @ 2 mls/hr TITRATE PRN IV SEDATION Last administered on 22:12; Start 11/27/16 at 01:45; Stop 11/29/16 at 14:45; Status DC Midazolam HCl (Versed Inj) 2 mg Q15M PRN IV PUSH SEDATION; Start 11/27/16 at 01:45; Stop 11/29/16 at 14:45; Status DC Lactated Ringer's 1,000 ml @ 84 mls/hr [id number] IV Last administered on 01:17; Start 11/27/16 at 03:15; Stop 12/02/16 at 07:00; Status DC Cisatracurium Besylate 100 mg/ Sodium Chloride 250 ml @ 8.34 mls/hr TITRATE PRN IV TOF 1/4 Last administered on 11/28/16 11:11; Start 11/28/16 at 11:00; Stop 11/28/16 at 14:11; Status DC Sodium Chloride 250 ml @ 15 mls/hr ONCE ONCE IV Last administered on 11:15; Start 11/28/16 at 11:15; Stop 11/29/16 at 03:54; Status DC Epinephrine HCl (EPINEPHrine (1:10,000) INJ) 1 mg STK-MED ONCE .ROUTE ; Start 11/29/16 at 04:20; Stop 11/29/16 at 04:21; Status DC Atropine Sulfate (Atropine Inj) 1 mg STK-MED ONCE .ROUTE ; Start 11/29/16 at 04 :20; Stop 11/29/16 at 04:21; Status DC Lidocaine HCl (Xylocaine 2% Inj) 100 mg STK-MED ONCE .ROUTE ; Start 11/29/16 at 04:20; Stop 11/29/16 at 04:21; Status DC Iohexol (Omnipaque 350 Inj) 70 ml STK-MED ONCE IVCONTRAST Last administered on 11/29/16 05:14; Start 11/29/16 at 05:14; Stop 11/29/16 at 05:15; Status DC Epinephrine HCl (EPINEPHrine (1:10,000) INJ) 1 mg STK-MED ONCE .ROUTE ; Start 11/29/16 at 06:45; Stop 11/29/16 at 06:46; Status DC Epinephrine HCl (EPINEPHrine (1:10,000) INJ) 4 mg STK-MED ONCE .ROUTE ; Start 11/29/16 at 06:48; Stop 11/29/16 at 06:49; Status DC Hydromorphone HCl (Dilaudid Pf Inj) 0.5 mg Q4H PRN IV PUSH pain 7-10 or not taking po; Start 11/29/16 at 12:30; Stop 11/29/16 at 14:38; Status DC Rocuronium [place] (Zemuron Inj) 50 mg STK-MED ONCE .ROUTE Last administered on 11/29/16 12:51; Start 11/29/16 at 12:51; Stop 11/29/16 at 12:52; Status DC Rocuronium [place] (Zemuron Inj) 50 mg STK-MED ONCE .ROUTE Last administered on 11/29/16 13:30; Start 11/29/16 at 13:30; Stop 11/29/16 at 13:31; Status DC Collagenase (Santyl Oint) 1 applic DAILY TOPICAL Last administered on 09:00; Start 11/30/16 at 12:00 Albuterol/ Ipratropium (Duoneb Neb) 1 ampule Q6HR NEB NEB Last administered on 12/04/16 09:06; Start 11/30/16 at 16:00; Stop 12/04/16 at 09:12; Status DC Dextrose (D50w (Vial) Inj) 50 ml UNSCH PRN IV PUSH HYPOGLYCEMIA-SEE COMMENTS; Start 11/30/16 at 12:15; Stop 12/02/16 at 19:38; Status DC Glucagon (Glucagon Inj) 1 mg UNSCH PRN OTHER HYPOGLYCEMIA-SEE COMMENTS; Start 11/30/16 at 12:15; Stop 12/02/16 at 19:38; Status DC Insulin Human Regular (NovoLIN R SUPPLEMENTAL SCALE) 1 ACHS SLIDING SCALE SQ ; Start 11/30/16 at 17:00; Stop 12/02/16 at 09:49; Status DC Acetaminophen (Tylenol) 650 mg Q4H PRN PO PAIN OR TEMP >100.4 Last administered on 12/16/16 22:04; Start 11/30/16 at 13:15 Magnesium Sulfate/ Dextrose 100 ml @ 100 mls/hr Q1H IV Last administered on 16:52; Start 12/01/16 at 14:00; Stop 12/01/16 at 15:59; Status DC Potassium Chloride (KCl Powder) 20 meq ONCE ONCE PO ; Start 12/01/16 at 14:00 ; Stop 12/01/16 at 14:01; Status DC Fentanyl Citrate (fentaNYL INJ) 200 mcg STK-MED ONCE .ROUTE Last administered on 12/01/16 15:00; Start 12/01/16 at 14:45; Stop 12/01/16 at 14:46; Status DC Midazolam HCl (Versed Inj) 4 mg STK-MED ONCE .ROUTE Last administered on 15:00; Start 12/01/16 at 14:45; Stop 12/01/16 at 14:46; Status DC Fentanyl Citrate (fentaNYL INJ) 100 mcg STK-MED ONCE .ROUTE Last administered on 12/01/16 15:55; Start 12/01/16 at 15:53; Stop 12/01/16 at 15:54; Status DC Midazolam HCl (Versed Inj) 2 mg STK-MED ONCE .ROUTE Last administered on 16:00; Start 12/01/16 at 15:53; Stop 12/01/16 at 15:54; Status DC Cefazolin Sodium/ Dextrose 50 ml @ As Directed STK-MED ONCE .ROUTE Last administered on 12/01/16 16:00; Start 12/01/16 at 16:03; Stop 12/01/16 at 16 :04; Status DC Iodixanol (VISIPAQUE 320 INJ (Rad Spec)) 65 ml STK-MED ONCE I-ARTERIAL Last administered on 12/01/16 16:15; Start 12/02/16 at 08:47; Stop 12/02/16 at 08 :51; Status DC Potassium Chloride (KCl Powder) 20 meq ONCE ONCE PO ; Start 12/02/16 at 10:00 ; Stop 12/02/16 at 10:02; Status DC Insulin Human Regular (NovoLIN R SUPPLEMENTAL SCALE) 1 Q6HR SQ ; Start at 12:00; Stop 12/02/16 at 19:38; Status DC Magnesium Sulfate/ Dextrose 100 ml @ 100 mls/hr ONCE ONCE IV Last administered on 12/02/16 11:11; Start 12/02/16 at 10:00; Stop 12/02/16 at 10 :59; Status DC Metoclopramide HCl (Reglan Inj) 5 mg Q8H IV PUSH Last administered on 02:28; Start 12/02/16 at 18:00; Stop 12/12/16 at 16:47; Status DC Racepinephrine (Racepinephrine 2.25% Neb) 0.5 ml Q4HR NEB PRN NEB hemoptysis/ stridor; Start 12/03/16 at 15:00 Albuterol/ Ipratropium (Duoneb Neb) 1 ampule Q6HR NEB NEB Last administered on 12/08/16 01:13; Start 12/04/16 at 10:00; Stop 12/08/16 at 09:59; Status DC Nitroglycerin (Nitroglycerin 2% Oint) 2 inch Q6H PRN TOPICAL SBP>160, DBP>90; Start 12/04/16 at 09:15 Clonidine (Catapres) 0.1 mg Q8H PO Last administered on 12/17/16 09:19; Start 12/04/16 at 10:00 Hydralazine HCl (Apresoline Inj) 10 mg Q1H PRN IV PUSH SBP>160, DBP>90 Last administered on 12/04/16 12:39; Start 12/04/16 at 09:15; Stop 12/16/16 at 15: 01; Status DC Labetalol HCl (Trandate Inj) 10 mg Q1H PRN IV PUSH SBP>160, DBP>90, HR>65; Start 12/04/16 at 09:15; Stop 12/16/16 at 15:01; Status DC Enalaprilat (Vasotec Inj) 1.25 mg Q6H PRN IV PUSH SBP>160, DBP>90; Start 12/04 at 09:15 Sodium Chloride (NS Flush) DAILY IV FLUSH Last administered on 12/17/16 09:00 ; Start 12/04/16 at 18:00 Sodium Chloride (NS Flush) UNSCH PRN IV FLUSH SEE PROTOCOL; Start 12/04/16 at 18:00 Loperamide HCl (Imodium Liq) 2 mg UNSCH PRN PO DIARRHEA; Start 12/14/16 at 10: 45 Lactobacillus Acidophilus (Lactinex) 1 tab TID PO Last administered on 12:40; Start 12/14/16 at 18:00 Famotidine (Pepcid) 20 mg BID PO Last administered on 12/17/16 09:18; Start 12/16/16 at 21:00 Date of Insertion: Dec 04, 2016 Line: Central Venous Catheter Side: Left Location: Internal, Jugular A/P Problem List: (1) Subarachnoid hemorrhage due to ruptured aneurysm ICD Code: I60.8 - Other nontraumatic subarachnoid hemorrhage (2) Subdural hematoma ICD Code: I62.00 - Nontraumatic subdural hemorrhage, unspecified (3) Intracranial aneurysm ICD Code: I67.1 - Cerebral aneurysm, nonruptured (4) Respiratory failure ICD Code: J96.90 - Respiratory failure, unspecified, unspecified whether with hypoxia or hypercapnia Status: Acute Assessment and Plan 56 years old male Status post left frontotemporal parietal craniectomy 10/08 for evacuation subdural hematoma/duraplasty Left subdural hematoma - 1.3 cm with 1.6 shift left to right Subarachnoid hemorrhage Alvarado and Rodriguez 5, Carroll grade 4 - left P-comm status post 4 coiling 10/08 Hypoxic-Ischemic Encephalopathy - Nimodipine completed 21 days. Initiated 10/13. - Levetiracetam 500 mg per tube q12h. - 10/13 and 10/14 and 10/17) 10/19 left MCA territory vasospasm, status post successful verapamil treatment by IR with 20 mg verapamil - 10/17 CT brain - less hemisphere edema with herniation through left craniotomy site, now improved. - Dr. Perry/neurosurgery. Plan to replace bone flap in the future - neurologically stable and doing well, and continued PT and rehabilitation. Acute hypoxic Respiratory failure secondary to mucous plugging- Resolved Possible healthcare associated pneumonia ARDS- resolved Noncardiogenic/neurogenic pulmonary edema- resolved. Chronic respiratory failure requiring tracheostomy-attending to And placed on nasal cannula Massive Hemoptysis - resolved Aspiration pneumonitis -- Trach has now been tapped for 2 days and currently on room air. -- Albuterol/ipratropium aerosols every 6 hours with albuterol aerosols - Dr. Wilson plan is to downsize tube and probably considering tracheostomy removal sometime this week CT angiogram chest/neck revealed right centrilobular bleeding likely source right bronchial artery. Repeat CT chest 11/29no visualization of active bleeding.- Resolved -- Follow-up on sputum culture -- s/p Trach Dr. Sullivan/Dr. Collazo 11/01 #8 Beti --Redo trach 11/[address] Crockett; down sized to uncuffed fenestrated 6 tracheostomy on 12/14 and now capped. 12/01 - embolization of right bronchial artery by IR- no further bleeding from tracheostomy Septic and cardiogenic shock- resolved. LV dysfunction secondary to SAH - persistent, now resolved Elevated troponin- secondary to SAH, unlikely to be ACS. - resolved. Pulmonary hypertension s/p PEA arrest 11/28 after ett dislodgement, hypoxic arrest Continue free water 200mL per tube q6h. Echocardiogram 10/14/16 revealed EF 40-45%. Septal hypokinesis. Moderate MR. Severe pulmonary hypertension with pulmonary artery pressures estimated 61 mmHg Limited Echo 11/06: LVEF 60-65%, Trivial mitral and tricuspid regurgitation, No vegetations noted. Continue diltiazem's 90 mg by mouth every 6 hours and furosemide 20 mg daily Cerebral Salt Wasting/SIADH-resolved now hypernatremic Strict I/Os. See FEN below. Creatinine currently within normal limits -> resolved. Monitor urine output FEN/GI: Ileus- improving. Monitor Elevated transaminases Hyperammonemia - Currently on Glucerna 1.5 goal 60 cc an hour. Consult history tutor to review formula. - free water per G tube - ICU electrolyte protocol. - Lansoprazole 30 mg by tube daily for GI prophylaxis will change this to Pepcid - Continue bowel regimen - Reglan DC 12/13- stools amount decreased and thicker in consistency- continue to monitor - Continue PEG feeding. s/p PEG 11/12/16 - speech following for swallowing progress Severe protein caloric malnutrition- continue with tube feeds as tolerated. Septic Shock- resolved. Right occlusive subclavian, axillary and bilateral superficial cephalic thrombus - limited Echo to evaluate vegetation-neg. ID following - Follow-up on sputum culture, trach site culture- no growth - Digital Ischemia with necrosis involving all toes and left 2nd finger and right ringer finger- stable, conservative management - Digits have demarcated, allow auto amputation. Cardizem PO currently and 90 mg every 6 hours (for digital ischemia, Raynaud's) Continue bacitracin twice a day to affected areas Peripheral IVs discontinued. Place central line for IV access. We'll need to be started on systemic anticoagulation at some point however with recent embolization for hemoptysis holding full anticoagulation at this time. Stage 2 sacral ulcer - ABD dressing with [employer]- staff nurse makes sure to keep area dry Problem Qualifiers (1) Respiratory failure: Qualified Codes: J96.00 - Acute respiratory failure, unspecified whether with hypoxia or hypercapnia Arline Moore MD Dec 17, 2016 15:21
[2016-12-17] MEDS: MELATONIN 5 MG TAB PO SCH (20:54)
[2016-12-17] MEDS: ACETAMINOPHEN 325 MG TAB PO PRN (20:55)
[2016-12-18] VITALS (8 sets, daily range): BP systolic 88–127; BP diastolic 52–73; PULSE 60–82; RESP 17–18; TEMP 97.2–98.6; O2SAT 95–99
[2016-12-18] MEDS: cloNIDine HCL 0.1 MG TAB PO SCH ×3 (02:00→17:14)
[2016-12-18] MEDS: CHLORHEXIDINE GLUCONATE 2 % 1 PACK (2 CLOTHS) TOP SCH (04:00)
[2016-12-18] MEDS: DILTIAZEM HCL 90 MG TAB PO SCH ×3 (05:42→17:14)
[2016-12-18] MEDS: LACTOBACILLUS ACIDOPHILUS TAB PO SCH ×3 (08:00→17:14)
[2016-12-18] MEDS: levETIRAcetam 500 MG/5 ML UDC NG SCH ×2 (08:00→20:57)
[2016-12-18] MEDS: FAMOTIDINE 20 MG TAB PO SCH ×2 (08:00→20:57)
[2016-12-18] MEDS: BENEPROTEIN POWDER 1 PACK G-TUBE SCH ×3 (08:00→17:14)
[2016-12-18] MEDS: ARTIFICIAL TEARS OPTH SOLN 15 ML BTL EACH EYE SCH ×3 (08:01→17:14)
[2016-12-18] MEDS: SODIUM CHLORIDE 0.9% FLUSH 10 ML FLUSH IV FLUSH SCH ×3 (08:02→20:56)
[2016-12-18] MEDS: CHLORHEXIDINE 0.12% (ORAL KIT) 15 ML CUP MT SCH ×2 (08:47→20:00)
[2016-12-18] MEDS: POVIDONE IODINE 10% OINT 30 GM TUBE TOPICAL SCH (08:48)
[2016-12-18] MEDS: COLLAGENASE OINT 30 GM TUBE TOPICAL SCH (08:48)
[2016-12-18] MEDS: BACITRACIN TOP OINT 15 GM TUBE TOPICAL SCH ×2 (08:48→21:00)
--- NOTE | 2016-12-18 09:30 | HHI.PR ---
Subjective Remarks Follow-up visit subarachnoid hemorrhage, status post left frontotemporal parietal craniectomy for evacuation of subdural hematoma, duraplasty, Status post PEG & trach. Patient seen and examined today. Awake and alert. Responding to some questions and commands. Denies any pain or discomfort. Objective Vitals Vital Signs Date Time Temp Pulse Resp B/P (MAP) Pulse Ox O2 Delivery O2 Flow Rate FiO2 12/18/16 08:00 98.5 78 17 107/70 (82) 99 12/18/16 05:07 97.2 71 18 88/52 (64) 97 12/18/16 01:22 98.5 60 18 106/55 (72) 98 12/17/16 21:26 96 21 12/17/16 21:00 99.0 63 18 93/59 (70) 97 12/17/16 16:00 98.0 78 19 108/59 (75) 95 12/17/16 12:00 97.9 69 18 115/60 (78) 94 I/O 12/17/16 12/17/16 12/17/16 12/18/16 12/18/16 12/18/16 07:00 15:00 23:00 07:00 15:00 23:00 Intake Total 713 ml 900 ml Output Total 150 ml 900 ml 800 ml Balance 563 ml 0 ml -800 ml Tube Feeding 713 ml 720 ml Tube Irrigant 180 ml Output Urine Total 150 ml 900 ml 600 ml Stool Total 200 ml Result Diagram: 12/15/16 0445 12/15/16 0445 Imaging Last Impressions Chest X-Ray 12/04/16 1753 Signed Impressions: Service Date/Time: Sunday, December 04, 2016 18:55 - CONCLUSION: 1. Placement of left central line tip in superior vena cava. No pneumothorax. Mild basilar airspace disease. Small right effusion. Gurwinder Root MD Upper Extremity Ultrasound 12/04/16 0000 Signed Impressions: Service Date/Time: Sunday, December 04, 2016 15:37 - CONCLUSION: 1. Positive for occlusive deep venous thrombosis in the right axillary and subclavian vein. Occlusive superficial thrombus in bilateral cephalic veins. Gurwinder Root MD Angiography 12/01/16 0000 Signed Impressions: Service Date/Time: November 14:02 - CONCLUSION: 1. Right side up on her hemorrhage with angiography of the right bronchial artery revealing no source of active hemorrhage. Empiric embolization was performed. Santos Crockett Jr., MD Chest CT 11/28/16 0000 Signed Impressions: Service Date/Time: Tuesday, November 29, 2016 05:13 - CONCLUSION: 1. Patchy alveolar disease characteristic of edema or pneumonia. 2. Severe emphysema 3. Gastrojejunostomy tube looped in the stomach Harvey Morejon MD Chest/Thorax CTA 11/26/16 0000 Signed Impressions: Service Date/Time: Saturday, November 26, 2016 20:18 - CONCLUSION: 1. Extensive filling defects within the right central bronchial tree characteristic of endobronchial hemorrhage. 2. Consolidating airspace disease in the right upper lobe and right lower lobe characteristic of hemorrhage and post obstructive lung consolidation. 3. Right bronchial artery is identified extending to the central right bronchial region 4. Advanced COPD. Nasir Amanda MD Abdomen X-Ray 11/19/16 0600 Signed Impressions: Service Date/Time: Saturday, November 19, 2016 02:44 - CONCLUSION: Unchanged bowel gas pattern potentially relating to an ileus. Santos Crockett Jr., MD Transcranial Doppler Study Complete 10/20/16 0600 Signed Impressions: Service Date/Time: October 07:54 - CONCLUSION: Slight interval elevation of flow velocity measurements and ratio on the left Yosvany Polk MD Liver Ultrasound 10/19/16 0000 Signed Impressions: Service Date/Time: Wednesday, October 19, 2016 11:20 - CONCLUSION: 1. Sludge filled gallbladder with thickened wall. 2. Moderate size bilateral pleural effusions and mild upper abdominal ascites. Santos Vazquez MD Cerebral Arteriogram 10/19/16 0000 Signed Impressions: Service Date/Time: Wednesday, October 19, 2016 12:47 - CONCLUSION: Uncomplicated cerebral arteriography with spasmolytic therapy as described in detail above. Yosvany Polk MD Head CT 10/17/16 0000 Signed Impressions: Service Date/Time: Monday, October 17, 2016 15:06 - CONCLUSION: Ventricles are slightly larger without ventriculostomy. Edema in the left hemisphere the brain herniating through the operative site. Remington Woodward MD FACR Infusion Non-thrombolysis 10/14/16 1103 Signed Impressions: Service Date/Time: Friday, October 14, 2016 10:21 - CONCLUSION: 1. Uncomplicated infusion for spasmolysis Harvey Morejon MD Neck CTA 10/07/16 0000 Signed Impressions: Service Date/Time: Friday, October 07, 2016 15:03 - CONCLUSION: 1. Mild carotid bulb atherosclerotic calcification bilaterally. However, no significant stenosis is present in either internal carotid artery. 2. Paranasal sinus mucoperiosteal thickening. 3. Please refer to brain CTA report for description of the intracranial findings. Yosvany Ramirez MD Head CTA 10/07/16 0000 Signed Impressions: Service Date/Time: Friday, October 07, 2016 15:03 - CONCLUSION: 1. 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 2. Large left subdural hematoma measuring 1.3 cm in depth with a significant, 1.6 cm left to right subfalcine shift. Joni Shelton MD Objective Remarks GENERAL: This is a thinly appearing, well-developed patient, in no apparent distress. SKIN: Warm and dry. HEENT: Sunken left temporoparietal area, no bone. Pupils equal round and reactive. Nose without bleeding. Airway patent. NECK: Tracheostomy. On room air. Tolerating. CARDIOVASCULAR: Regular rate and rhythm without murmurs, gallops, or rubs. RESPIRATORY: No wheezes, rales. Diminished bases GASTROINTESTINAL: Abdomen soft, non-tender, nondistended. Bowel Sounds normoactive x4. PEG in place. Liquid stools noted on the dignashield. MUSCULOSKELETAL: Extremities without clubbing, cyanosis, or edema. NEUROLOGICAL: Awake and alert. Oriented to time, place, person. No focal neuro deficit. Moves all extremities. Normal speech. Procedures 10/13 Four-vessel cerebral angiography with verapamil treatment of vasospasm Date of Insertion: Dec 04, 2016 Line: Central Venous Catheter Side: Left Location: Internal, Jugular A/P Problem List: (1) Subarachnoid hemorrhage due to ruptured aneurysm ICD Code: I60.8 - Other nontraumatic subarachnoid hemorrhage (2) Subdural hematoma ICD Code: I62.00 - Nontraumatic subdural hemorrhage, unspecified (3) Intracranial aneurysm ICD Code: I67.1 - Cerebral aneurysm, nonruptured (4) Respiratory failure ICD Code: J96.90 - Respiratory failure, unspecified, unspecified whether with hypoxia or hypercapnia Status: Acute Assessment and Plan 56-year-old male presents with intracranial bleed, was transferred from [facility]. Status post left frontotemporal parietal craniectomy 10/08 for evacuation subdural hematoma/duraplasty Left subdural hematoma - 1.3 cm with 1.6 shift left to right Subarachnoid hemorrhage Alvarado and Rodriguez 5, Carroll grade 4 - left P-comm status post 4 coiling 10/08 Hypoxic-Ischemic Encephalopathy - Nimodipine completed 21 days. Initiated 10/13. - Levetiracetam 500 mg per tube q12h. - 10/13 and 10/14 and 10/17) 10/19 left MCA territory vasospasm, status post successful verapamil treatment by IR with 20 mg verapamil - 10/17 CT brain - less hemisphere edema with herniation through left craniotomy site, now improved. - Dr. Perry/neurosurgery. Plan to replace bone flap in the future - Echocardiogram 10/14/16 revealed EF 40-45%. Septal hypokinesis. Moderate MR. Severe pulmonary hypertension with pulmonary artery pressures estimated 61 mmHg Limited Echo 11/06: LVEF 60-65%, Trivial mitral and tricuspid regurgitation, No vegetations noted. - Continue diltiazem's 90 mg by mouth every 6 hours and furosemide 20 mg daily - neurologically stable and doing well, and continued PT and rehabilitation. - PT, OT, speech following. Patient will need helmet when out of bed to chair. Ordered with [employer]otech. Respiratory failure, S/P tracheostomy - S/p Trach Dr. Sullivan/Dr. Collazo 11/01 #8 [place] - CT angiogram chest/neck revealed right centrilobular bleeding likely source right bronchial artery. Repeat CT chest 11/29no visualization of active bleeding.- Resolved - 12/01 - embolization of right bronchial artery by IR- no further bleeding from tracheostomy - Redo trach 11/[address] Sullivan; down sized to uncuffed fenestrated 6 tracheostomy on 12/14 and now capped. - Albuterol/ipratropium aerosols every 6 hours with albuterol aerosols - Dr. Wilson plan is to downsize tube and probably considering tracheostomy removal - Tolerated tracheostomy capping. Has been decannulated. - Monitor Respiratory status Ileus- improving. Monitor Elevated transaminases Hyperammonemia Severe protein caloric malnutrition- continue with tube feeds as tolerated. - Currently on Glucerna 1.5 goal 60 cc an hour. Consult television schedule coordinator to review formula. - free water per G tube 200mL per tube q6h. - Lansoprazole 30 mg by tube daily for GI prophylaxis will change this to Pepcid - Continue bowel regimen - Reglan DC 12/13- stools amount decreased and thicker in consistency- continue to monitor - Continue PEG feeding. s/p PEG 11/12/16 - speech following for swallowing progress - Tube feeds only at night, patient has regular trach during the daytime, will order ensure pudding - Dietitian consulted to reevaluate tube feeding rate Right occlusive subclavian, axillary and bilateral superficial cephalic thrombus - limited Echo to evaluate vegetation-neg. ID following - Digital Ischemia with necrosis involving all toes and left 2nd finger and right ringer finger- stable, conservative management - Digits have demarcated, allow auto amputation. Cardizem PO currently and 90 mg every 6 hours (for digital ischemia, Raynaud's) - Continue bacitracin twice a day to affected areas - Central line for IV access. We'll need to be started on systemic anticoagulation at some point however with recent embolization for hemoptysis holding full anticoagulation at this time. Stage 2 sacral ulcer - ABD dressing with [employer]- staff nurse makes sure to keep area dry Course of hospitalization complications Acute hypoxic Respiratory failure secondary to mucous plugging- Resolved Possible healthcare associated pneumonia, Septic Shock- resolved. ARDS - resolved Noncardiogenic/neurogenic pulmonary edema- resolved. Massive Hemoptysis - resolved Aspiration pneumonitis - resolved Cerebral Salt Wasting/SIADH-resolved now hypernatremic - Creatinine currently within normal limits -> resolved. - Monitor urine output Septic and cardiogenic shock- resolved. LV dysfunction secondary to SAH - persistent, now resolved Elevated troponin- secondary to SAH, unlikely to be ACS. - resolved. Pulmonary hypertension s/p PEA arrest 11/28 after ETT dislodgement, hypoxic arrest DVT prop SCD, no chemoprophylaxis secondary to risk for bleeding Full Code Discussed with patient, nursing, Dr. Moore Discharge Planning Pending SSI. Placement will be in fdc facility or long-term care. CM following. Attending Statement The exam, history, and the medical decision-making described in the above note were completed with the assistance of the mid-level provider. I reviewed and agree with the findings presented. I attest that I had a [id number] encounter with the patient on the same day, and personally performed and documented my assessment and findings in the medical record. Patient has no complaints. Denies redness of breathing. He denies any pain. Patient's nurse at the bedside during the interview. Gen NAD NECK: Tracheostomy. On room air. Tolerating. CARDIOVASCULAR: Regular rate and rhythm without murmurs, gallops, or rubs. RESPIRATORY: No wheezes, rales. Diminished bases GASTROINTESTINAL: Abdomen soft, non-tender, nondistended. Bowel Sounds normoactive x4. PEG in place. Status post left frontotemporal parietal craniectomy 10/08 for evacuation subdural hematoma/duraplasty Left subdural hematoma - 1.3 cm with 1.6 shift left to right Subarachnoid hemorrhage Alvarado and Rodriguez 5, Carroll grade 4 - left P-comm status post 4 coiling 10/08 s/p trach stable pending placement Problem Qualifiers (1) Respiratory failure: Qualified Codes: J96.00 - Acute respiratory failure, unspecified whether with hypoxia or hypercapnia Jina Betancourt Dec 18, 2016 09:29 Arline Moore MD Dec 18, 2016 14:39
[2016-12-18] MEDS: MELATONIN 5 MG TAB PO SCH (20:57)
[2016-12-18] MEDS: ACETAMINOPHEN 325 MG TAB PO PRN (20:57)
[2016-12-19] VITALS (7 sets, daily range): BP systolic 111–133; BP diastolic 57–70; PULSE 62–73; RESP 17–18; TEMP 97.4–98.7; O2SAT 97–100
[2016-12-19] MEDS: cloNIDine HCL 0.1 MG TAB PO SCH ×3 (02:38→17:44)
[2016-12-19] MEDS: CHLORHEXIDINE GLUCONATE 2 % 1 PACK (2 CLOTHS) TOP SCH (04:00)
[2016-12-19] MEDS: DILTIAZEM HCL 90 MG TAB PO SCH ×4 (05:33→17:44)
[2016-12-19] MEDS: CHLORHEXIDINE 0.12% (ORAL KIT) 15 ML CUP MT SCH ×3 (08:00→21:02)
--- NOTE | 2016-12-19 08:33 | HHI.PR ---
Subjective Remarks TRACH CAPPED NO SOB Objective Vital Signs Date Time Temp Pulse Resp B/P (MAP) Pulse Ox O2 Delivery O2 Flow Rate FiO2 12/19/16 05:53 98.1 73 18 119/70 (86) 99 12/19/16 00:41 97.4 62 18 117/66 (83) 98 12/18/16 21:23 95 21 12/18/16 20:22 98.3 68 18 119/71 (87) 97 12/18/16 16:00 98.6 69 18 120/72 (88) 96 12/18/16 12:00 97.7 82 18 127/73 (91) 97 12/18/16 11:17 97 21 I/O 12/18/16 12/18/16 12/18/16 12/19/16 12/19/16 12/19/16 07:00 15:00 23:00 07:00 15:00 23:00 Intake Total 980 ml 260 ml Output Total 800 ml 550 ml 1600 ml Balance -800 ml 430 ml -1340 ml Tube Feeding 920 ml 260 ml Tube Irrigant 60 ml Output Urine Total 600 ml 550 ml 1600 ml Stool Total 200 ml # Bowel Movements 2 Result Diagram: 12/15/1644412/15/16 0445 Objective Remarks GENERAL: SKIN: Warm and dry. HEAD: Atraumatic. Normocephalic. EYES: Pupils equal and round. No scleral icterus. No injection or drainage. ENT: No nasal bleeding or discharge. Mucous membranes pink and moist. NECK: Trachea midline. No JVD. CARDIOVASCULAR: Regular rate and rhythm. RESPIRATORY: No accessory muscle use. Clear to auscultation. Breath sounds equal bilaterally. TRACHEOSTOMY IN PLACE GASTROINTESTINAL: Abdomen soft, non-tender, nondistended. Hepatic and splenic margins not palpable. MUSCULOSKELETAL: Extremities without clubbing, cyanosis, or edema. No obvious deformities. NEUROLOGICAL: Awake and alert. No obvious cranial nerve deficits. Motor grossly within normal limits. Five out of 5 muscle strength in the arms and legs. Normal speech. PSYCHIATRIC: Appropriate mood and affect; insight and judgment normal. Assessment and Plan Assessment and Plan ALERT NO SOB PLAN TRACH, REMOVED WELL TOLERATED Katie Wilson MD Dec 19, 2016 08:33
[2016-12-19] MEDS: POVIDONE IODINE 10% OINT 30 GM TUBE TOPICAL SCH (09:00)
[2016-12-19] MEDS: ARTIFICIAL TEARS OPTH SOLN 15 ML BTL EACH EYE SCH ×3 (09:00→17:44)
[2016-12-19] MEDS: SODIUM CHLORIDE 0.9% FLUSH 10 ML FLUSH IV FLUSH SCH ×3 (09:00→21:00)
[2016-12-19] MEDS: COLLAGENASE OINT 30 GM TUBE TOPICAL SCH (09:00)
[2016-12-19] MEDS: BACITRACIN TOP OINT 15 GM TUBE TOPICAL SCH ×2 (09:00→22:34)
[2016-12-19] MEDS: BENEPROTEIN POWDER 1 PACK G-TUBE SCH ×3 (09:00→17:44)
[2016-12-19] MEDS: levETIRAcetam 500 MG/5 ML UDC NG SCH ×2 (09:15→22:34)
[2016-12-19] MEDS: LACTOBACILLUS ACIDOPHILUS TAB PO SCH ×3 (09:15→17:44)
[2016-12-19] MEDS: FAMOTIDINE 20 MG TAB PO SCH ×2 (09:15→22:33)
--- NOTE | 2016-12-19 10:04 | HHI.PR ---
Subjective Remarks Follow-up visit subarachnoid hemorrhage, status post left frontotemporal parietal craniectomy for evacuation of subdural hematoma, duraplasty, Status post PEG & trach. Patient seen and examined today decannulated. Appears to be comfortable. Denies any complaints. Objective Vitals Vital Signs Date Time Temp Pulse Resp B/P (MAP) Pulse Ox O2 Delivery O2 Flow Rate FiO2 12/19/16 08:40 98.3 62 18 111/70 (84) 98 12/19/16 05:53 98.1 73 18 119/70 (86) 99 12/19/16 00:41 97.4 62 18 117/66 (83) 98 12/18/16 21:23 95 21 12/18/16 20:22 98.3 68 18 119/71 (87) 97 12/18/16 16:00 98.6 69 18 120/72 (88) 96 12/18/16 12:00 97.7 82 18 127/73 (91) 97 12/18/16 11:17 97 21 I/O 12/18/16 12/18/16 12/18/16 12/19/16 12/19/16 12/19/16 07:00 15:00 23:00 07:00 15:00 23:00 Intake Total 980 ml 260 ml Output Total 800 ml 550 ml 1600 ml Balance -800 ml 430 ml -1340 ml Tube Feeding 920 ml 260 ml Tube Irrigant 60 ml Output Urine Total 600 ml 550 ml 1600 ml Stool Total 200 ml # Bowel Movements 2 Result Diagram: 12/15/16 0445 12/15/16 0445 Imaging Last Impressions Chest X-Ray 12/04/16 1753 Signed Impressions: Service Date/Time: Sunday, December 04, 2016 18:55 - CONCLUSION: 1. Placement of left central line tip in superior vena cava. No pneumothorax. Mild basilar airspace disease. Small right effusion. Gurwinder Root MD Upper Extremity Ultrasound 12/04/16 0000 Signed Impressions: Service Date/Time: Sunday, December 04, 2016 15:37 - CONCLUSION: 1. Positive for occlusive deep venous thrombosis in the right axillary and subclavian vein. Occlusive superficial thrombus in bilateral cephalic veins. Gurwinder Root MD Angiography 12/01/16 0000 Signed Impressions: Service Date/Time: November 14:02 - CONCLUSION: 1. Right side up on her hemorrhage with angiography of the right bronchial artery revealing no source of active hemorrhage. Empiric embolization was performed. Santos Crockett Jr., MD Chest CT 11/28/16 0000 Signed Impressions: Service Date/Time: Tuesday, November 29, 2016 05:13 - CONCLUSION: 1. Patchy alveolar disease characteristic of edema or pneumonia. 2. Severe emphysema 3. Gastrojejunostomy tube looped in the stomach Harvey Morejon MD Chest/Thorax CTA 11/26/16 0000 Signed Impressions: Service Date/Time: Saturday, November 26, 2016 20:18 - CONCLUSION: 1. Extensive filling defects within the right central bronchial tree characteristic of endobronchial hemorrhage. 2. Consolidating airspace disease in the right upper lobe and right lower lobe characteristic of hemorrhage and post obstructive lung consolidation. 3. Right bronchial artery is identified extending to the central right bronchial region 4. Advanced COPD. Nasir Amanda MD Abdomen X-Ray 11/19/16 0600 Signed Impressions: Service Date/Time: Saturday, November 19, 2016 02:44 - CONCLUSION: Unchanged bowel gas pattern potentially relating to an ileus. Santos Crockett Jr., MD Transcranial Doppler Study Complete 10/20/16 0600 Signed Impressions: Service Date/Time: October 07:54 - CONCLUSION: Slight interval elevation of flow velocity measurements and ratio on the left Yosvany Polk MD Liver Ultrasound 10/19/16 0000 Signed Impressions: Service Date/Time: Wednesday, October 19, 2016 11:20 - CONCLUSION: 1. Sludge filled gallbladder with thickened wall. 2. Moderate size bilateral pleural effusions and mild upper abdominal ascites. Santos Vazquez MD Cerebral Arteriogram 10/19/16 0000 Signed Impressions: Service Date/Time: Wednesday, October 19, 2016 12:47 - CONCLUSION: Uncomplicated cerebral arteriography with spasmolytic therapy as described in detail above. Yosvany Polk MD Head CT 10/17/16 0000 Signed Impressions: Service Date/Time: Monday, October 17, 2016 15:06 - CONCLUSION: Ventricles are slightly larger without ventriculostomy. Edema in the left hemisphere the brain herniating through the operative site. Remington Woodward MD FACR Infusion Non-thrombolysis 10/14/16 1103 Signed Impressions: Service Date/Time: Friday, October 14, 2016 10:21 - CONCLUSION: 1. Uncomplicated infusion for spasmolysis Harvey Morejon MD Neck CTA 10/07/16 0000 Signed Impressions: Service Date/Time: Friday, October 07, 2016 15:03 - CONCLUSION: 1. Mild carotid bulb atherosclerotic calcification bilaterally. However, no significant stenosis is present in either internal carotid artery. 2. Paranasal sinus mucoperiosteal thickening. 3. Please refer to brain CTA report for description of the intracranial findings. Yosvany Ramirez MD Head CTA 10/07/16 0000 Signed Impressions: Service Date/Time: Friday, October 07, 2016 15:03 - CONCLUSION: 1. 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 2. Large left subdural hematoma measuring 1.3 cm in depth with a significant, 1.6 cm left to right subfalcine shift. Joni Shelton MD Objective Remarks GENERAL: This is a thinly appearing, well-developed patient, in no apparent distress. SKIN: Warm and dry. HEENT:Sunken left temporoparietal area, no bone Pupils equal round and reactive. Nose without bleeding. Airway patent. NECK: On room air. Tolerating. Decannulated. CARDIOVASCULAR: Regular rate and rhythm without murmurs, gallops, or rubs. RESPIRATORY: No wheezes, rales. Diminished bases GASTROINTESTINAL: Abdomen soft, non-tender, nondistended. Bowel Sounds normoactive x4. PEG in place. Liquid stools noted on the dignashield. MUSCULOSKELETAL: Extremities without clubbing, cyanosis, or edema. NEUROLOGICAL: Awake and alert. Oriented to time, place, person. No focal neuro deficit. Moves all extremities. Normal speech. Procedures 10/13 Four-vessel cerebral angiography with verapamil treatment of vasospasm Date of Insertion: Dec 04, 2016 Line: Central Venous Catheter Side: Left Location: Internal, Jugular A/P Problem List: (1) Subarachnoid hemorrhage due to ruptured aneurysm ICD Code: I60.8 - Other nontraumatic subarachnoid hemorrhage (2) Subdural hematoma ICD Code: I62.00 - Nontraumatic subdural hemorrhage, unspecified (3) Intracranial aneurysm ICD Code: I67.1 - Cerebral aneurysm, nonruptured (4) Respiratory failure ICD Code: J96.90 - Respiratory failure, unspecified, unspecified whether with hypoxia or hypercapnia Status: Acute Assessment and Plan 56-year-old male presents with intracranial bleed, was transferred from [facility]. Status post left frontotemporal parietal craniectomy 10/08 for evacuation subdural hematoma/duraplasty Left subdural hematoma - 1.3 cm with 1.6 shift left to right Subarachnoid hemorrhage Alvarado and Rodriguez 5, Carroll grade 4 - left P-comm status post 4 coiling 10/08 Hypoxic-Ischemic Encephalopathy - Nimodipine completed 21 days. Initiated 10/13. - Levetiracetam 500 mg per tube q12h. - 10/13 and 10/14 and 10/17) 10/19 left MCA territory vasospasm, status post successful verapamil treatment by IR with 20 mg verapamil - 10/17 CT brain - less hemisphere edema with herniation through left craniotomy site, now improved. - Dr. Perry/neurosurgery. Plan to replace bone flap in the future - Echocardiogram 10/14/16 revealed EF 40-45%. Septal hypokinesis. Moderate MR. Severe pulmonary hypertension with pulmonary artery pressures estimated 61 mmHg Limited Echo 11/06: LVEF 60-65%, Trivial mitral and tricuspid regurgitation, No vegetations noted. - Continue diltiazem's 90 mg by mouth every 6 hours and furosemide 20 mg daily - neurologically stable and doing well, and continued PT and rehabilitation. - PT, OT, speech following. Patient will need helmet when out of bed to chair. Helmet at bedside - Patient activity should be increased to out of bed to chair with helmet. Respiratory failure, S/P tracheostomy - S/p Tr[facility] Dr[facility] Sullivan[facility]/neck revealed right centrilobular bleeding likely source right bronchial artery. Repeat CT chest 11/29no visualization of active bleeding.- Resolved - 12/01 - embolization of right bronchial artery by IR- no further bleeding from tracheostomy - Redo trach 11/[address] Sullivan; down sized to uncuffed fenestrated 6 tracheostomy on 12/14 and now capped. - Albuterol/ipratropium aerosols every 6 hours with albuterol aerosols - Dr. Wilson plan is to downsize tube and probably considering tracheostomy removal - Tolerated tracheostomy capping. Has been decannulated. Tolerating room air. - Monitor Respiratory status Ileus- improving. Monitor Elevated transaminases Hyperammonemia Severe protein caloric malnutrition- continue with tube feeds as tolerated. - Currently on Glucerna 1.5 goal 60 cc an hour. Consult mold checker to review formula. - free water per G tube 200mL per tube q6h. - Lansoprazole 30 mg by tube daily for GI prophylaxis will change this to Pepcid - Continue bowel regimen - Reglan DC 12/13- stools amount decreased and thicker in consistency- continue to monitor - Continue PEG feeding. s/p PEG 11/12/16 - speech following for swallowing progress - Tube feeds only at night, patient has regular trach during the daytime, will order ensure pudding - Dietitian consulted to reevaluate tube feeding rate. Right occlusive subclavian, axillary and bilateral superficial cephalic thrombus - limited Echo to evaluate vegetation-neg. ID following - Digital Ischemia with necrosis involving all toes and left 2nd finger and right ringer finger- stable, conservative management - Digits have demarcated, allow auto amputation. Cardizem PO currently and 90 mg every 6 hours (for digital ischemia, Raynaud's) - Continue bacitracin twice a day to affected areas - Central line for IV access. We'll need to be started on systemic anticoagulation at some point however with recent embolization for hemoptysis holding full anticoagulation at this time. Stage 2 sacral ulcer - ABD dressing with [employer]- staff nurse makes sure to keep area dry - Turn position every 2 hours - Out of bed to chair activity Course of hospitalization complications Acute hypoxic Respiratory failure secondary to mucous plugging- Resolved Possible healthcare associated pneumonia, Septic Shock- resolved. ARDS - resolved Noncardiogenic/neurogenic pulmonary edema- resolved. Massive Hemoptysis - resolved Aspiration pneumonitis - resolved Cerebral Salt Wasting/SIADH-resolved now hypernatremic - Creatinine currently within normal limits -> resolved. - Monitor urine output Septic and cardiogenic shock- resolved. LV dysfunction secondary to SAH - persistent, now resolved Elevated troponin- secondary to SAH, unlikely to be ACS. - resolved. Pulmonary hypertension s/p PEA arrest 11/28 after ETT dislodgement, hypoxic arrest DVT prop SCD, no chemoprophylaxis secondary to risk for bleeding Full Code Discussed with patient, nursing, Dr. Moore Discharge Planning Pending SSI. Placement will be in care home facility or long-term care. CM following. Problem Qualifiers (1) Respiratory failure: Qualified Codes: J96.00 - Acute respiratory failure, unspecified whether with hypoxia or hypercapnia Jina Betancourt Dec 19, 2016 10:04
[2016-12-19] MEDS: ACETAMINOPHEN 325 MG TAB PO PRN (11:19)
[2016-12-19] MEDS: MELATONIN 5 MG TAB PO SCH (22:33)
[2016-12-20] VITALS (9 sets, daily range): BP systolic 103–138; BP diastolic 57–66; PULSE 57–77; RESP 17–18; TEMP 97.9–98.9; O2SAT 97–99
[2016-12-20] MEDS: DILTIAZEM HCL 90 MG TAB PO SCH ×4 (00:57→17:14)
[2016-12-20] MEDS: cloNIDine HCL 0.1 MG TAB PO SCH ×3 (02:51→17:14)
[2016-12-20] MEDS: CHLORHEXIDINE GLUCONATE 2 % 1 PACK (2 CLOTHS) TOP SCH (04:00)
[2016-12-20] MEDS: ARTIFICIAL TEARS OPTH SOLN 15 ML BTL EACH EYE SCH ×3 (08:51→17:13)
[2016-12-20] MEDS: CHLORHEXIDINE 0.12% (ORAL KIT) 15 ML CUP MT SCH (08:51)
[2016-12-20] MEDS: BENEPROTEIN POWDER 1 PACK G-TUBE SCH ×3 (09:00→17:14)
[2016-12-20] MEDS: levETIRAcetam 500 MG/5 ML UDC NG SCH ×2 (09:06→21:00)
[2016-12-20] MEDS: SODIUM CHLORIDE 0.9% FLUSH 10 ML FLUSH IV FLUSH SCH ×3 (09:06→21:00)
[2016-12-20] MEDS: LACTOBACILLUS ACIDOPHILUS TAB PO SCH ×3 (09:07→17:14)
[2016-12-20] MEDS: FAMOTIDINE 20 MG TAB PO SCH ×2 (09:07→21:00)
[2016-12-20] MEDS: BACITRACIN TOP OINT 15 GM TUBE TOPICAL SCH ×2 (09:14→21:01)
[2016-12-20] MEDS: COLLAGENASE OINT 30 GM TUBE TOPICAL SCH (09:14)
[2016-12-20] MEDS: POVIDONE IODINE 10% OINT 30 GM TUBE TOPICAL SCH (09:14)
[2016-12-20] MEDS: ACETAMINOPHEN 325 MG TAB PO PRN (14:32)
--- NOTE | 2016-12-20 16:33 | HHI.PR ---
Subjective Remarks TRACH REMOVED NO SOB Objective Vital Signs Date Time Temp Pulse Resp B/P (MAP) Pulse Ox O2 Delivery O2 Flow Rate FiO2 12/20/16 15:48 98.8 61 18 109/57 (74) 98 12/20/16 12:00 98.1 64 17 123/64 (83) 98 12/20/16 09:26 97 12/20/16 08:20 97.9 61 18 118/62 (80) 98 12/20/16 06:07 57 112/57 (75) 12/20/16 05:24 98.3 59 18 118/58 (78) 99 12/20/16 02:45 60 114/66 (82) 12/20/16 00:30 98.9 60 18 138/64 (88) 99 12/19/16 20:30 98.7 62 18 126/67 (86) 99 12/19/16 17:46 97 21 I/O 12/19/16 12/19/16 12/19/16 12/20/16 12/20/16 12/20/16 07:00 15:00 23:00 07:00 15:00 23:00 Intake Total 480 ml 60 ml 600 ml Balance 480 ml 60 ml 600 ml Intake Oral 480 ml 60 ml 600 ml # Voids 1 4 3 # Bowel Movements 1 1 2 Objective Remarks GENERAL: SKIN: Warm and dry. HEAD: Atraumatic. Normocephalic. EYES: Pupils equal and round. No scleral icterus. No injection or drainage. ENT: No nasal bleeding or discharge. Mucous membranes pink and moist. NECK: Trachea midline. No JVD. CARDIOVASCULAR: Regular rate and rhythm. RESPIRATORY: No accessory muscle use. Clear to auscultation. Breath sounds equal bilaterally. TRACHEOSTOMY IN PLACE GASTROINTESTINAL: Abdomen soft, non-tender, nondistended. Hepatic and splenic margins not palpable. MUSCULOSKELETAL: Extremities without clubbing, cyanosis, or edema. No obvious deformities. NEUROLOGICAL: Awake and alert. No obvious cranial nerve deficits. Motor grossly within normal limits. Five out of 5 muscle strength in the arms and legs. Normal speech. PSYCHIATRIC: Appropriate mood and affect; insight and judgment normal. Assessment and Plan Assessment and Plan ALERT NO SOB PLAN TRACH, REMOVED WELL TOLERATED Katie Wilson MD Dec 20, 2016 16:33
--- NOTE | 2016-12-20 17:51 | HHI.PR ---
Subjective Remarks Follow-up visit subarachnoid hemorrhage, status post left frontotemporal parietal craniectomy for evacuation of subdural hematoma, duraplasty, Status post PEG & trach. Patient seen and examined. Pt decannulated yesterday and stated he is "speaking a little." Denied new issues. Pt denied fever, cough, NVD, throat pain, abdominal/chest pain, shortness of breath. He noted he is able to eat a "bit" and continues to be on "tube feedings at night." Objective Vitals Vital Signs Date Time Temp Pulse Resp B/P (MAP) Pulse Ox O2 Delivery O2 Flow Rate FiO2 12/20/16 15:48 98.8 61 18 109/57 (74) 98 12/20/16 12:00 98.1 64 17 123/64 (83) 98 12/20/16 09:26 97 12/20/16 08:20 97.9 61 18 118/62 (80) 98 12/20/16 06:07 57 112/57 (75) 12/20/16 05:24 98.3 59 18 118/58 (78) 99 12/20/16 02:45 60 114/66 (82) 12/20/16 00:30 98.9 60 18 138/64 (88) 99 12/19/16 20:30 98.7 62 18 126/67 (86) 99 12/19/16 17:46 97 21 I/O 12/19/16 12/19/16 12/19/16 12/20/16 12/20/16 12/20/16 07:00 15:00 23:00 07:00 15:00 23:00 Intake Total 480 ml 60 ml 600 ml Balance 480 ml 60 ml 600 ml Intake Oral 480 ml 60 ml 600 ml # Voids 1 4 3 # Bowel Movements 1 1 2 Imaging Last Impressions Chest X-Ray 12/04/16 1753 Signed Impressions: Service Date/Time: Sunday, December 04, 2016 18:55 - CONCLUSION: 1. Placement of left central line tip in superior vena cava. No pneumothorax. Mild basilar airspace disease. Small right effusion. Gurwinder Root MD Upper Extremity Ultrasound 12/04/16 0000 Signed Impressions: Service Date/Time: Sunday, December 04, 2016 15:37 - CONCLUSION: 1. Positive for occlusive deep venous thrombosis in the right axillary and subclavian vein. Occlusive superficial thrombus in bilateral cephalic veins. Gurwinder Root MD Angiography 12/01/16 Signed Impressions: Service Date/Time: November 14:02 - CONCLUSION: 1. Right side up on her hemorrhage with angiography of the right bronchial artery revealing no source of active hemorrhage. Empiric embolization was performed. Santos Crockett Jr., MD Chest CT 11/28/16 Signed Impressions: Service Date/Time: Tuesday, November 29, 2016 05:13 - CONCLUSION: 1. Patchy alveolar disease characteristic of edema or pneumonia. 2. Severe emphysema 3. Gastrojejunostomy tube looped in the stomach Harvey Morejon MD Chest/Thorax CTA 11/26/16 Signed Impressions: Service Date/Time: Saturday, November 26, 2016 20:18 - CONCLUSION: 1. Extensive filling defects within the right central bronchial tree characteristic of endobronchial hemorrhage. 2. Consolidating airspace disease in the right upper lobe and right lower lobe characteristic of hemorrhage and post obstructive lung consolidation. 3. Right bronchial artery is identified extending to the central right bronchial region 4. Advanced COPD. Nasir Amanda MD Abdomen X-Ray 11/19/16599 Signed Impressions: Service Date/Time: Saturday, November 19, 2016 02:44 - CONCLUSION: Unchanged bowel gas pattern potentially relating to an ileus. Santos Crockett Jr., MD Transcranial Doppler Study Complete 10/20/16599 Signed Impressions: Service Date/Time: October 07:54 - CONCLUSION: Slight interval elevation of flow velocity measurements and ratio on the left Yosvany Polk MD Liver Ultrasound 10/19/16 Signed Impressions: Service Date/Time: Wednesday, October 19, 2016 11:20 - CONCLUSION: 1. Sludge filled gallbladder with thickened wall. 2. Moderate size bilateral pleural effusions and mild upper abdominal ascites. Santos Vazquez MD Cerebral Arteriogram 10/19/16 Signed Impressions: Service Date/Time: Wednesday, October 19, 2016 12:47 - CONCLUSION: Uncomplicated cerebral arteriography with spasmolytic therapy as described in detail above. Yosvany Polk MD Head CT 10/17/16 Signed Impressions: Service Date/Time: Monday, October 17, 2016 15:06 - CONCLUSION: Ventricles are slightly larger without ventriculostomy. Edema in the left hemisphere the brain herniating through the operative site. Remington Woodward MD FACR Infusion Non-thrombolysis 10/14/16 1103 Signed Impressions: Service Date/Time: Friday, October 14, 2016 10:21 - CONCLUSION: 1. Uncomplicated infusion for spasmolysis Harvey Morejon MD Neck CTA 10/07/16 0000 Signed Impressions: Service Date/Time: Friday, October 07, 2016 15:03 - CONCLUSION: 1. Mild carotid bulb atherosclerotic calcification bilaterally. However, no significant stenosis is present in either internal carotid artery. 2. Paranasal sinus mucoperiosteal thickening. 3. Please refer to brain CTA report for description of the intracranial findings. Yosvany Ramirez MD Head CTA 10/07/16 0000 Signed Impressions: Service Date/Time: Friday, October 07, 2016 15:03 - CONCLUSION: 1. 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 2. Large left subdural hematoma measuring 1.3 cm in depth with a significant, 1.6 cm left to right subfalcine shift. Joni Shelton MD Objective Remarks GENERAL: Pt encountered laying a bed, awake, female significant other at bedside. SKIN: Warm and dry. Bandage noted at neck in covering trach site. All toes evidenced some blackening at their base, two fingers evdienced similar blackening. HEAD: Normocephalic. EYES: No scleral icterus. No injection or drainage. NECK: Supple, trachea midline. No lymphadenopathy. CARDIOVASCULAR: Regular rate and rhythm without murmurs, gallops, or rubs. RESPIRATORY: Breath sounds equal bilaterally. No accessory muscle use. GASTROINTESTINAL: Abdomen soft, non-tender, nondistended. feeding tube noted. MUSCULOSKELETAL: No cyanosis, or edema. PSYCHIATRIC: Alert and oriented x3, pleasan/cooperative, no overt signs of depression/anxiety. Speech was soft. Procedures 10/13 Four-vessel cerebral angiography with verapamil treatment of vasospasm Medications and IVs Current Medications Medications (Trade) Dose Ordered Sig/Adali Route Start Time Stop Time Status Last Admin Magnesium Sulfate 4 gm/Sodium Chloride 108 ml @ 108 mls/hr UNSCH PRN IV 10/07/16 18:30 (Heparin Inj) 5,000 units Q8HR SQ 10/14/16 22:00 Future Hold 11/13/16 21:20 Calcium Gluconate 1 gm/Sodium Chloride 110 ml @ 110 mls/hr UNSCH PRN IV 10/18/16 09:45 10/18/16 10:22 (NS Flush) 2 ml UNSCH PRN IV FLUSH 10/19/16 09:45 (NS Flush) 2 ml BID IV FLUSH 10/19/16 21:00 12/20/16 09:06 (Tears Naturale Opth Soln) 1 drop TID EACH EYE 10/19/16 13:00 12/19/16 17:44 (Albuterol Neb) 2.5 mg Q2HR NEB PRN INH 10/19/16 09:45 11/22/16 22:09 Miscellaneous Information 1 Q361D XX 10/19/16 09:45 (Chlorhexidine 2% Cloth) 3 pack Taper DAILY@04 TOP 10/20/16 04:00 10/16/17 03:59 12/14/16 03:08 (Chlorhexidine 2% Cloth) 3 pack UNSCH PRN TOP 10/19/16 09:45 (Keppra Liq) 500 mg Q12HR NG 10/31/16 21:00 12/20/16 09:06 (Melatonin) 5 mg HS PO 11/01/16 21:00 12/19/16 22:33 (Cardizem) 90 mg Q6HR PO 11/02/16 12:00 12/20/16 17:14 (Zofran Inj) 4 mg Q6H PRN IV PUSH 11/18/16 01:45 (Baciguent Oint) 1 applic Q12HR TOPICAL 11/18/16 11:00 12/20/16 09:14 (Beneprotein Powder) 1 pack TID G-TUBE 11/19/16 09:00 12/20/16 17:14 (Betadine 10% Oint) 1 applic DAILY TOPICAL 11/24/16 09:00 12/20/16 09:14 (Peridex 0.12% Liq) 15 ml BID@08,20 MT 11/26/16 20:00 12/20/16 08:51 (Santyl Oint) 1 applic DAILY TOPICAL 11/30/16 12:00 12/20/16 09:14 (Tylenol) 650 mg Q4H PRN PO 11/30/16 13:15 12/20/16 14:32 (Racepinephrine 2.25% Neb) 0.5 ml Q4HR NEB PRN NEB 12/03/16 15:00 (Nitroglycerin 2% Oint) 2 inch Q6H PRN TOPICAL 12/04/16 09:15 (Catapres) 0.1 mg Q8H PO 12/04/16 10:00 12/20/16 17:14 (Vasotec Inj) 1.25 mg Q6H PRN IV PUSH 12/04/16 09:15 (NS Flush) DAILY IV FLUSH 12/04/16 18:00 12/20/16 09:06 (NS Flush) UNSCH PRN IV FLUSH 12/04/16 18:00 (Imodium Liq) 2 mg UNSCH PRN PO 12/14/16 10:45 (Lactinex) 1 tab TID PO 12/14/16 18:00 12/20/16 17:14 (Pepcid) 20 mg BID PO 12/16/16 21:00 12/20/16 09:07 Urinary Catheter: No Date of Insertion: Dec 04, 2016 Line: Central Venous Catheter Side: Left Location: Internal, Jugular A/P Problem List: (1) Subarachnoid hemorrhage due to ruptured aneurysm ICD Code: I60.8 - Other nontraumatic subarachnoid hemorrhage (2) Subdural hematoma ICD Code: I62.00 - Nontraumatic subdural hemorrhage, unspecified (3) Intracranial aneurysm ICD Code: I67.1 - Cerebral aneurysm, nonruptured (4) Respiratory failure ICD Code: J96.90 - Respiratory failure, unspecified, unspecified whether with hypoxia or hypercapnia Status: Acute Assessment and Plan 56-year-old male presents with intracranial bleed, was transferred from [facility]. Respiratory failure: Pt decannulated. On Room air at 97%. Ileus: Continues with tube feeding at night. Oral nutrition being provided. Transaminitis: resolved Status post left frontotemporal parietal craniectomy 10/08 for evacuation subdural hematoma/duraplasty Left subdural hematoma - 1.3 cm with 1.6 shift left to right Subarachnoid hemorrhage Alvarado and Rodriguez 5, Carroll grade 4 - left P-comm status post 4 coiling 10/08 Hypoxic-Ischemic Encephalopathy - Nimodipine completed 21 days. Initiated 10/13. - Levetiracetam 500 mg per tube q12h. - 10/13 and 10/14 and 10/17) 10/19 left MCA territory vasospasm, status post successful verapamil treatment by IR with 20 mg verapamil - 10/17 CT brain - less hemisphere edema with herniation through left craniotomy site, now improved. - Dr. Perry/neurosurgery. Plan to replace bone flap in the future - Echocardiogram 10/14/16 revealed EF 40-45%. Septal hypokinesis. Moderate MR. Severe pulmonary hypertension with pulmonary artery pressures estimated 61 mmHg Limited Echo 11/06: LVEF 60-65%, Trivial mitral and tricuspid regurgitation, No vegetations noted. - Continue diltiazem's 90 mg by mouth every 6 hours and furosemide 20 mg daily - neurologically stable and doing well, and continued PT and rehabilitation. - PT, OT, speech following. Patient will need helmet when out of bed to chair. Helmet at bedside - Patient activity should be increased to out of bed to chair with helmet. Respiratory failure, S/P tracheostomy - S/p Trach Dr. Sullivan/Dr. Collazo 11/01 #8 [place] - CT angiogram chest/neck revealed right centrilobular bleeding likely source right bronchial artery. Repeat CT chest 11/29no visualization of active bleeding.- Resolved - 12/01 - embolization of right bronchial artery by IR- no further bleeding from tracheostomy - Redo trach 11/[address] Sullivan; down sized to uncuffed fenestrated 6 tracheostomy on 12/14 and now capped. - Albuterol/ipratropium aerosols every 6 hours with albuterol aerosols - Dr. Wilson plan is to downsize tube and probably considering tracheostomy removal - Tolerated tracheostomy capping. Has been decannulated. Tolerating room air. - Monitor Respiratory status Ileus- improving. Monitor Elevated transaminases Hyperammonemia Severe protein caloric malnutrition- continue with tube feeds as tolerated. - Currently on Glucerna 1.5 goal 60 cc an hour. Consult tile erector to review formula. - free water per G tube 200mL per tube q6h. - Lansoprazole 30 mg by tube daily for GI prophylaxis will change this to Pepcid - Continue bowel regimen - Reglan DC 12/13- stools amount decreased and thicker in consistency- continue to monitor - Continue PEG feeding. s/p PEG 11/12/16 - speech following for swallowing progress - Tube feeds only at night, patient has regular trach during the daytime, will order ensure pudding - Dietitian consulted to reevaluate tube feeding rate. Right occlusive subclavian, axillary and bilateral superficial cephalic thrombus - limited Echo to evaluate vegetation-neg. ID following - Digital Ischemia with necrosis involving all toes and left 2nd finger and right ringer finger- stable, conservative management - Digits have demarcated, allow auto amputation. Cardizem PO currently and 90 mg every 6 hours (for digital ischemia, Raynaud's) - Continue bacitracin twice a day to affected areas - Central line for IV access. We'll need to be started on systemic anticoagulation at some point however with recent embolization for hemoptysis holding full anticoagulation at this time. Stage 2 sacral ulcer - ABD dressing with [employer]- staff nurse makes sure to keep area dry - Turn position every 2 hours - Out of bed to chair activity Course of hospitalization complications Acute hypoxic Respiratory failure secondary to mucous plugging- Resolved Possible healthcare associated pneumonia, Septic Shock- resolved. ARDS - resolved Noncardiogenic/neurogenic pulmonary edema- resolved. Massive Hemoptysis - resolved Aspiration pneumonitis - resolved Cerebral Salt Wasting/SIADH-resolved now hypernatremic - Creatinine currently within normal limits -> resolved. - Monitor urine output Septic and cardiogenic shock- resolved. LV dysfunction secondary to SAH - persistent, now resolved Elevated troponin- secondary to SAH, unlikely to be ACS. - resolved. Pulmonary hypertension s/p PEA arrest 11/28 after ETT dislodgement, hypoxic arrest DVT prop SCD, no chemoprophylaxis secondary to risk for bleeding Full Code Discussed with patient, patient's female significant other, nursing, and Dr. Moore Discharge Planning Pending SSI. Placement will be in [facility] facility or long-term care. CM following. Problem Qualifiers (1) Respiratory failure: Qualified Codes: J96.00 - Acute respiratory failure, unspecified whether with hypoxia or hypercapnia Bonifacio Schmidt Jr. Dec 20, 2016 17:51
[2016-12-20] MEDS: MELATONIN 5 MG TAB PO SCH (21:00)
[2016-12-21] MEDS: DILTIAZEM HCL 90 MG TAB PO SCH ×3 (00:38→12:00)
[2016-12-21 01:31] VITALS: BP 110/56; PULSE 62; RESP 18; TEMP 98; O2SAT 99
[2016-12-21] MEDS: cloNIDine HCL 0.1 MG TAB PO SCH ×3 (02:18→18:00)
[2016-12-21] MEDS: CHLORHEXIDINE GLUCONATE 2 % 1 PACK (2 CLOTHS) TOP SCH (04:34)
[2016-12-21 07:29] VITALS: BP 103/57; PULSE 57; RESP 18; TEMP 97.3; O2SAT 99
[2016-12-21] MEDS: CHLORHEXIDINE 0.12% (ORAL KIT) 15 ML CUP MT SCH ×2 (08:00→20:00)
[2016-12-21 08:15] VITALS: BP 121/56; PULSE 56; RESP 18; TEMP 98.1; O2SAT 99
[2016-12-21] MEDS: ARTIFICIAL TEARS OPTH SOLN 15 ML BTL EACH EYE SCH ×3 (09:00→18:00)
[2016-12-21] MEDS: SODIUM CHLORIDE 0.9% FLUSH 10 ML FLUSH IV FLUSH SCH ×3 (09:00→21:00)
[2016-12-21] MEDS: POVIDONE IODINE 10% OINT 30 GM TUBE TOPICAL SCH (09:00)
[2016-12-21] MEDS: COLLAGENASE OINT 30 GM TUBE TOPICAL SCH (09:00)
[2016-12-21] MEDS: levETIRAcetam 500 MG/5 ML UDC NG SCH ×2 (09:00→21:00)
[2016-12-21] MEDS: FAMOTIDINE 20 MG TAB PO SCH ×2 (09:00→21:00)
[2016-12-21] MEDS: BENEPROTEIN POWDER 1 PACK G-TUBE SCH ×3 (09:00→18:00)
[2016-12-21] MEDS: BACITRACIN TOP OINT 15 GM TUBE TOPICAL SCH ×2 (09:00→21:00)
[2016-12-21] MEDS: LACTOBACILLUS ACIDOPHILUS TAB PO SCH ×3 (10:55→18:00)
[2016-12-21 12:12] VITALS: BP 163/89; PULSE 72; RESP 18; TEMP 98.4; O2SAT 100
--- NOTE | 2016-12-21 12:39 | HHI.PR ---
Subjective Remarks Follow-up visit subarachnoid hemorrhage, status post left frontotemporal parietal craniectomy for evacuation of subdural hematoma, duraplasty, Status post PEG & trach. Patient seen and examined sitting up in bedside chair eating lunch. Pt decannulated two days ago. Pt eating and speaking. Denied new issues. Pt denied fever, cough, NVD, throat pain, abdominal/chest pain, shortness of breath. Objective Vitals Vital Signs Date Time Temp Pulse Resp B/P (MAP) Pulse Ox O2 Delivery O2 Flow Rate FiO2 12/21/16 12:12 98.4 72 18 163/89 (113) 100 12/21/16 08:15 98.1 56 18 121/56 (77) 99 12/21/16 07:29 97.3 57 18 103/57 (72) 99 12/21/16 01:31 98.0 62 18 110/56 (74) 99 12/20/16 20:00 98.4 77 18 103/57 (72) 98 12/20/16 15:48 98.8 61 18 109/57 (74) 98 I/O 12/20/16 12/20/16 12/20/16 12/21/16 12/21/16 12/21/16 07:00 15:00 23:00 07:00 15:00 23:00 Intake Total 60 ml 1200 ml Balance 60 ml 1200 ml Intake Oral 60 ml 1200 ml # Voids 4 3 1 2 # Bowel Movements 1 2 2 Imaging Last Impressions Chest X-Ray 12/04/16 1753 Signed Impressions: Service Date/Time: Sunday, December 04, 2016 18:55 - CONCLUSION: 1. Placement of left central line tip in superior vena cava. No pneumothorax. Mild basilar airspace disease. Small right effusion. Gurwinder Root MD Upper Extremity Ultrasound 12/04/16 0000 Signed Impressions: Service Date/Time: Sunday, December 04, 2016 15:37 - CONCLUSION: 1. Positive for occlusive deep venous thrombosis in the right axillary and subclavian vein. Occlusive superficial thrombus in bilateral cephalic veins. Gurwinder Root MD Angiography 12/01/16 0000 Signed Impressions: Service Date/Time: November 14:02 - CONCLUSION: 1. Right side up on her hemorrhage with angiography of the right bronchial artery revealing no source of active hemorrhage. Empiric embolization was performed. Santos Crockett Jr., MD Chest CT 11/28/16 0000 Signed Impressions: Service Date/Time: Tuesday, November 29, 2016 05:13 - CONCLUSION: 1. Patchy alveolar disease characteristic of edema or pneumonia. 2. Severe emphysema 3. Gastrojejunostomy tube looped in the stomach Harvey Morejon MD Chest/Thorax CTA 11/26/16 0000 Signed Impressions: Service Date/Time: Saturday, November 26, 2016 20:18 - CONCLUSION: 1. Extensive filling defects within the right central bronchial tree characteristic of endobronchial hemorrhage. 2. Consolidating airspace disease in the right upper lobe and right lower lobe characteristic of hemorrhage and post obstructive lung consolidation. 3. Right bronchial artery is identified extending to the central right bronchial region 4. Advanced COPD. Nasir Amanda MD Abdomen X-Ray 11/19/16 0600 Signed Impressions: Service Date/Time: Saturday, November 19, 2016 02:44 - CONCLUSION: Unchanged bowel gas pattern potentially relating to an ileus. Santos Crockett Jr., MD Transcranial Doppler Study Complete 10/20/16 0600 Signed Impressions: Service Date/Time: October 07:54 - CONCLUSION: Slight interval elevation of flow velocity measurements and ratio on the left Yosvany Polk MD Liver Ultrasound 10/19/16 0000 Signed Impressions: Service Date/Time: Wednesday, October 19, 2016 11:20 - CONCLUSION: 1. Sludge filled gallbladder with thickened wall. 2. Moderate size bilateral pleural effusions and mild upper abdominal ascites. Santos Vazquez MD Cerebral Arteriogram 10/19/16 0000 Signed Impressions: Service Date/Time: Wednesday, October 19, 2016 12:47 - CONCLUSION: Uncomplicated cerebral arteriography with spasmolytic therapy as described in detail above. Yosvany Polk MD Head CT 10/17/16 0000 Signed Impressions: Service Date/Time: Monday, October 17, 2016 15:06 - CONCLUSION: Ventricles are slightly larger without ventriculostomy. Edema in the left hemisphere the brain herniating through the operative site. Remington Woodward MD FACR Infusion Non-thrombolysis 10/14/16 1103 Signed Impressions: Service Date/Time: Friday, October 14, 2016 10:21 - CONCLUSION: 1. Uncomplicated infusion for spasmolysis Harvey Morejon MD Neck CTA 10/07/16 0000 Signed Impressions: Service Date/Time: Friday, October 07, 2016 15:03 - CONCLUSION: 1. Mild carotid bulb atherosclerotic calcification bilaterally. However, no significant stenosis is present in either internal carotid artery. 2. Paranasal sinus mucoperiosteal thickening. 3. Please refer to brain CTA report for description of the intracranial findings. Yosvany Ramirez MD Head CTA 10/07/16 0000 Signed Impressions: Service Date/Time: Friday, October 07, 2016 15:03 - CONCLUSION: 1. 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 2. Large left subdural hematoma measuring 1.3 cm in depth with a significant, 1.6 cm left to right subfalcine shift. Joni Shelton MD Objective Remarks GENERAL: Pt encountered sitting up in bedside chair, eating lunch. SKIN: Warm and dry. Bandage noted at neck in covering trach site, triluminal catheter noted left side of neck.. All toes evidenced some blackening at their base, two fingers evidenced similar blackening. HEAD: Normocephalic. EYES: No scleral icterus. No injection or drainage. NECK: Supple, trachea midline. No lymphadenopathy. CARDIOVASCULAR: Regular rate and rhythm without murmurs, gallops, or rubs. RESPIRATORY: Breath sounds equal bilaterally. No accessory muscle use. GASTROINTESTINAL: Abdomen soft, non-tender, nondistended. feeding tube noted. MUSCULOSKELETAL: No cyanosis, or edema. PSYCHIATRIC: Alert and oriented x3, pleasant/cooperative, no overt signs of depression/anxiety. Speech was soft sentences short. Procedures 10/13 Four-vessel cerebral angiography with verapamil treatment of vasospasm Medications and IVs Current Medications Medications (Trade) Dose Ordered Sig/Adali Route Start Time Stop Time Status Last Admin Magnesium Sulfate 4 gm/Sodium Chloride 108 ml @ 108 mls/hr UNSCH PRN IV 10/07/16 18:30 (Heparin Inj) 5,000 units Q8HR SQ 10/14/16 22:00 Future Hold 11/13/16 21:20 Calcium Gluconate 1 gm/Sodium Chloride 110 ml @ 110 mls/hr UNSCH PRN IV 10/18/16 09:45 10/18/16 10:22 (NS Flush) 2 ml UNSCH PRN IV FLUSH 10/19/16 09:45 (NS Flush) 2 ml BID IV FLUSH 10/19/16 21:00 12/21/16 09:00 (Tears Naturale Opth Soln) 1 drop TID EACH EYE 10/19/16 13:00 12/21/16 12:22 (Albuterol Neb) 2.5 mg Q2HR NEB PRN INH 10/19/16 09:45 11/22/16 22:09 Miscellaneous Information 1 Q361D XX 10/19/16 09:45 (Chlorhexidine 2% Cloth) Taper DAILY@04 TOP 10/20/16 04:00 10/16/17 03:59 12/14/16 03:08 (Chlorhexidine 2% Cloth) 3 pack UNSCH PRN TOP 10/19/16 09:45 (Keppra Liq) 500 mg Q12HR NG 10/31/16 21:00 12/21/16 09:00 (Melatonin) 5 mg HS PO 11/01/16 21:00 12/20/16 21:00 (Cardizem) 90 mg Q6HR PO 11/02/16 12:00 12/21/16 12:00 (Zofran Inj) 4 mg Q6H PRN IV PUSH 11/18/16 01:45 (Baciguent Oint) 1 applic Q12HR TOPICAL 11/18/16 11:00 12/21/16 09:00 (Beneprotein Powder) 1 pack TID G-TUBE 11/19/16 09:00 12/21/16 12:22 (Betadine 10% Oint) 1 applic DAILY TOPICAL 11/24/16 09:00 12/21/16 09:00 (Peridex 0.12% Liq) 15 ml BID@08,20 MT 11/26/16 20:00 12/21/16 08:00 (Santyl Oint) 1 applic DAILY TOPICAL 11/30/16 12:00 12/21/16 09:00 (Tylenol) 650 mg Q4H PRN PO 11/30/16 13:15 12/20/16 14:32 (Racepinephrine 2.25% Neb) 0.5 ml Q4HR NEB PRN NEB 12/03/16 15:00 (Nitroglycerin 2% Oint) 2 inch Q6H PRN TOPICAL 12/04/16 09:15 (Catapres) 0.1 mg Q8H PO 12/04/16 10:00 12/21/16 02:18 (Vasotec Inj) 1.25 mg Q6H PRN IV PUSH 12/04/16 09:15 (NS Flush) DAILY IV FLUSH 12/04/16 18:00 12/21/16 09:00 (NS Flush) UNSCH PRN IV FLUSH 12/04/16 18:00 (Imodium Liq) 2 mg UNSCH PRN PO 12/14/16 10:45 (Lactinex) 1 tab TID PO 12/14/16 18:00 12/21/16 12:22 (Pepcid) 20 mg BID PO 12/16/16 21:00 12/21/16 09:00 Urinary Catheter: No Date of Insertion: Dec 04, 2016 Line: Central Venous Catheter Side: Left Location: Internal, Jugular A/P Problem List: (1) Subarachnoid hemorrhage due to ruptured aneurysm ICD Code: I60.8 - Other nontraumatic subarachnoid hemorrhage (2) Subdural hematoma ICD Code: I62.00 - Nontraumatic subdural hemorrhage, unspecified (3) Intracranial aneurysm ICD Code: I67.1 - Cerebral aneurysm, nonruptured (4) Respiratory failure ICD Code: J96.90 - Respiratory failure, unspecified, unspecified whether with hypoxia or hypercapnia Status: Acute Assessment and Plan 56-year-old male presents with intracranial bleed, was transferred from [facility]. Respiratory failure: On Room air at 97%+ past 24 hours. S/P/ left frontotemporal parietal craniotomy: Neurosurgery consulted to address placement of bone flap. Anemia: noted on previous blood draws. Labs ordered for AM. Check iron and TIBC status. Status post left frontotemporal parietal craniectomy 10/08 for evacuation subdural hematoma/duraplasty Left subdural hematoma - 1.3 cm with 1.6 shift left to right Subarachnoid hemorrhage Alvarado and Rodriguez 5, Carroll grade 4 - left P-comm status post 4 coiling 10/08 Hypoxic-Ischemic Encephalopathy - Nimodipine completed 21 days. Initiated 10/13. - Levetiracetam 500 mg per tube q12h. - 10/13 and 10/14 and 10/17) 10/19 left MCA territory vasospasm, status post successful verapamil treatment by IR with 20 mg verapamil - 10/17 CT brain - less hemisphere edema with herniation through left craniotomy site, now improved. - Dr. Perry/neurosurgery. Plan to replace bone flap in the future - Echocardiogram 10/14/16 revealed EF 40-45%. Septal hypokinesis. Moderate MR. Severe pulmonary hypertension with pulmonary artery pressures estimated 61 mmHg Limited Echo 11/06: LVEF 60-65%, Trivial mitral and tricuspid regurgitation, No vegetations noted. - Continue diltiazem's 90 mg by mouth every 6 hours and furosemide 20 mg daily - neurologically stable and doing well, and continued PT and rehabilitation. - PT, OT, speech following. Patient will need helmet when out of bed to chair. Helmet at bedside - Patient activity should be increased to out of bed to chair with helmet. Respiratory failure, S/P tracheostomy - S/p Trach Dr. Sullivan/Dr. Collazo 11/01 #8 [place] - CT angiogram chest/neck revealed right centrilobular bleeding likely source right bronchial artery. Repeat CT chest 11/29no visualization of active bleeding.- Resolved - 12/01 - embolization of right bronchial artery by IR- no further bleeding from tracheostomy - Redo trach 11/[address] Sullivan; down sized to uncuffed fenestrated 6 tracheostomy on 12/14 and now capped. - Albuterol/ipratropium aerosols every 6 hours with albuterol aerosols - Dr. Wilson plan is to downsize tube and probably considering tracheostomy removal - Tolerated tracheostomy capping. Has been decannulated. Tolerating room air. - Monitor Respiratory status Ileus- improving. Monitor Elevated transaminases Hyperammonemia Severe protein caloric malnutrition- continue with tube feeds as tolerated. - Currently on Glucerna 1.5 goal 60 cc an hour. Consult lineman to review formula. - free water per G tube 200mL per tube q6h. - Lansoprazole 30 mg by tube daily for GI prophylaxis will change this to Pepcid - Continue bowel regimen - Reglan DC 12/13- stools amount decreased and thicker in consistency- continue to monitor - Continue PEG feeding. s/p PEG 11/12/16 - speech following for swallowing progress - Tube feeds only at night, patient has regular trach during the daytime, will order ensure pudding - Dietitian consulted to reevaluate tube feeding rate. Right occlusive subclavian, axillary and bilateral superficial cephalic thrombus - limited Echo to evaluate vegetation-neg. ID following - Digital Ischemia with necrosis involving all toes and left 2nd finger and right ringer finger- stable, conservative management - Digits have demarcated, allow auto amputation. Cardizem PO currently and 90 mg every 6 hours (for digital ischemia, Raynaud's) - Continue bacitracin twice a day to affected areas - Central line for IV access. We'll need to be started on systemic anticoagulation at some point however with recent embolization for hemoptysis holding full anticoagulation at this time. Stage 2 sacral ulcer - ABD dressing with [employer]- staff nurse makes sure to keep area dry - Turn position every 2 hours - Out of bed to chair activity Course of hospitalization complications Acute hypoxic Respiratory failure secondary to mucous plugging- Resolved Possible healthcare associated pneumonia, Septic Shock- resolved. ARDS - resolved Noncardiogenic/neurogenic pulmonary edema- resolved. Massive Hemoptysis - resolved Aspiration pneumonitis - resolved Cerebral Salt Wasting/SIADH-resolved now hypernatremic - Creatinine currently within normal limits -> resolved. - Monitor urine output Septic and cardiogenic shock- resolved. LV dysfunction secondary to SAH - persistent, now resolved Elevated troponin- secondary to SAH, unlikely to be ACS. - resolved. Pulmonary hypertension s/p PEA arrest 11/28 after ETT dislodgement, hypoxic arrest DVT prop SCD, no chemoprophylaxis secondary to risk for bleeding Full Code Discussed with patient, nursing, and Dr. Moore Discharge Planning Pending SSI. Placement will be in custodial facility or long-term care. CM following. Problem Qualifiers (1) Respiratory failure: Qualified Codes: J96.00 - Acute respiratory failure, unspecified whether with hypoxia or hypercapnia Bonifacio Schmidt Jr. Dec 21, 2016 12:39
[2016-12-21 16:20] VITALS: BP 118/60; PULSE 65; RESP 18; TEMP 98.8; O2SAT 99
--- NOTE | 2016-12-21 19:07 | HHI.PR ---
Subjective Remarks TRACH REMOVED NO SOB Objective Vital Signs Date Time Temp Pulse Resp B/P (MAP) Pulse Ox O2 Delivery O2 Flow Rate FiO2 12/21/16 16:20 98.8 65 18 118/60 (79) 99 12/21/16 12:12 98.4 72 18 163/89 (113) 100 12/21/16 08:15 98.1 56 18 121/56 (77) 99 12/21/16 07:29 97.3 57 18 103/57 (72) 99 12/21/16 01:31 98.0 62 18 110/56 (74) 99 12/20/16 20:00 98.4 77 18 103/57 (72) 98 I/O 12/20/16 12/20/16 12/20/16 12/21/16 12/21/16 12/21/16 07:00 15:00 23:00 07:00 15:00 23:00 Intake Total 60 ml 1200 ml 600 ml 360 ml Balance 60 ml 1200 ml 600 ml 360 ml Intake Oral 60 ml 1200 ml 600 ml 360 ml # Voids 4 3 1 2 2 # Bowel Movements 1 2 3 Objective Remarks GENERAL: SKIN: Warm and dry. HEAD: Atraumatic. Normocephalic. EYES: Pupils equal and round. No scleral icterus. No injection or drainage. ENT: No nasal bleeding or discharge. Mucous membranes pink and moist. NECK: Trachea midline. No JVD. CARDIOVASCULAR: Regular rate and rhythm. RESPIRATORY: No accessory muscle use. Clear to auscultation. Breath sounds equal bilaterally. TRACHEOSTOMY IN PLACE GASTROINTESTINAL: Abdomen soft, non-tender, nondistended. Hepatic and splenic margins not palpable. MUSCULOSKELETAL: Extremities without clubbing, cyanosis, or edema. No obvious deformities. NEUROLOGICAL: Awake and alert. No obvious cranial nerve deficits. Motor grossly within normal limits. Five out of 5 muscle strength in the arms and legs. Normal speech. PSYCHIATRIC: Appropriate mood and affect; insight and judgment normal. Assessment and Plan Assessment and Plan ALERT NO SOB PLAN TRACH, REMOVED WELL TOLERATED Katie Wilson MD Dec 21, 2016 19:07
[2016-12-21 20:35] VITALS: BP 130/63; PULSE 67; RESP 18; TEMP 97.8; O2SAT 97
[2016-12-21] MEDS: MELATONIN 5 MG TAB PO SCH (21:00)
[2016-12-22] VITALS (7 sets, daily range): BP systolic 113–128; BP diastolic 59–68; PULSE 60–77; RESP 18–20; TEMP 97.3–98.7; O2SAT 96–99
[2016-12-22] MEDS: DILTIAZEM HCL 90 MG TAB PO SCH ×4 (00:32→18:49)
[2016-12-22] MEDS: cloNIDine HCL 0.1 MG TAB PO SCH ×3 (02:50→18:00)
[2016-12-22] MEDS: CHLORHEXIDINE GLUCONATE 2 % 1 PACK (2 CLOTHS) TOP SCH (04:00)
[2016-12-22 05:44] LABS: AUTOMATED NEUTROPHIL # 2.7 TH/MM3 (1.8-7.7); BASOPHIL # 0.1 TH/MM3 (0-0.2); BASOPHIL % 1.7 % (0.0-2.0); EOSINOPHIL # 0.2 TH/MM3 (0-0.4); EOSINOPHIL % 2.7 % (0.0-4.0); HEMATOCRIT 25.4 % (39.0-51.0); HEMO FLAGS DIFF FINAL; LYMPH % 47.4 % (9.0-44.0); LYMPHOCYTE # 3.2 TH/MM3 (1.0-4.8); MEAN CELL VOLUME 91.6 FL (80.0-100.0); MEAN CORPUSCULAR HGB CONC 33.9 % (32.0-36.0); MONO % 9.1 % (0.0-8.0); NEUT % 39.1 % (16.0-70.0); PLATELET COUNT 280 TH/MM3 (150-450); RED BLOOD COUNT 2.78 MIL/MM3 (4.50-5.90); RED CELL DISTRIBUTION WIDTH 16.4 % (11.6-17.2); WHITE BLOOD COUNT 6.9 TH/MM3 (4.0-11.0)
[2016-12-22 06:13] LABS: ANION GAP 7 MEQ/L (5-15); BICARBONATE 28.7 MEQ/L (21.0-32.0); BLOOD UREA NITROGEN 20 MG/DL (7-18); CHLORIDE 101 MEQ/L (98-107); GLOMERULAR FILTRATION RATE 182 ML/MIN (>89); SODIUM (NA) 137 MEQ/L (136-145)
[2016-12-22 06:15] LABS: TRANSFERRIN IRON PROFILE 159 MG/DL (200-360)
[2016-12-22] MEDS: FAMOTIDINE 20 MG TAB PO SCH ×2 (07:43→21:47)
[2016-12-22] MEDS: levETIRAcetam 500 MG/5 ML UDC NG SCH ×2 (07:43→21:47)
[2016-12-22] MEDS: SODIUM CHLORIDE 0.9% FLUSH 10 ML FLUSH IV FLUSH SCH ×3 (07:43→21:47)
[2016-12-22] MEDS: BACITRACIN TOP OINT 15 GM TUBE TOPICAL SCH ×2 (07:43→21:46)
[2016-12-22] MEDS: POVIDONE IODINE 10% OINT 30 GM TUBE TOPICAL SCH (07:44)
[2016-12-22] MEDS: COLLAGENASE OINT 30 GM TUBE TOPICAL SCH (07:44)
[2016-12-22] MEDS: CHLORHEXIDINE 0.12% (ORAL KIT) 15 ML CUP MT SCH ×2 (08:00→21:46)
[2016-12-22] MEDS: LACTOBACILLUS ACIDOPHILUS TAB PO SCH ×3 (09:00→18:49)
[2016-12-22] MEDS: BENEPROTEIN POWDER 1 PACK G-TUBE SCH ×3 (09:00→18:00)
[2016-12-22] MEDS: ASCORBIC ACID 500 MG TAB PO SCH ×2 (09:00→21:47)
[2016-12-22] MEDS: ARTIFICIAL TEARS OPTH SOLN 15 ML BTL EACH EYE SCH ×3 (09:00→18:00)
[2016-12-22] MEDS: FERROUS SULFATE 325 MG (65 MG ELEMENTAL IRON) TAB PO SCH ×2 (13:47→18:49)
--- NOTE | 2016-12-22 14:13 | HHI.PR ---
Subjective Remarks Follow-up visit subarachnoid hemorrhage, status post left frontotemporal parietal craniectomy for evacuation of subdural hematoma, duraplasty, Status post PEG & trach. Patient seen and examined laying in bed resting.. Pt decannulated three days ago. Pt eating and speaking. Informed pt neurosurgery would see him and there is a tentative plan to do bone flap next week. Pt said "good." Denied new issues. Pt denied fever, cough, NVD, throat pain, abdominal/chest pain, shortness of breath. Objective Vitals Vital Signs Date Time Temp Pulse Resp B/P (MAP) Pulse Ox O2 Delivery O2 Flow Rate FiO2 12/22/16 12:41 98 21 12/22/16 11:30 98.0 67 20 118/67 (84) 99 12/22/16 08:32 98.7 65 20 122/59 (80) 98 12/22/16 04:00 97.3 60 18 115/62 (79) 97 12/22/16 00:40 97.5 66 18 123/59 (80) 96 12/21/16 20:35 97.8 67 18 130/63 (85) 97 12/21/16 16:20 98.8 65 18 118/60 (79) 99 I/O 12/21/16 12/21/16 12/21/16 12/22/16 12/22/16 12/22/16 07:00 15:00 23:00 07:00 15:00 23:00 Intake Total 600 ml 360 ml Balance 600 ml 360 ml Intake Oral 600 ml 360 ml # Voids 1 2 2 3 # Bowel Movements 3 Result Diagram: 12/22/16 0525 12/22/16 0525 Imaging Last Impressions Chest X-Ray 12/04/16 2393 Signed Impressions: Service Date/Time: Sunday, December 04, 2016 18:55 - CONCLUSION: 1. Placement of left central line tip in superior vena cava. No pneumothorax. Mild basilar airspace disease. Small right effusion. Gurwinder Root MD Upper Extremity Ultrasound 12/04/16 0000 Signed Impressions: Service Date/Time: Sunday, December 04, 2016 15:37 - CONCLUSION: 1. Positive for occlusive deep venous thrombosis in the right axillary and subclavian vein. Occlusive superficial thrombus in bilateral cephalic veins. Gurwinder Root MD Angiography 12/01/16 0000 Signed Impressions: Service Date/Time: November 14:02 - CONCLUSION: 1. Right side up on her hemorrhage with angiography of the right bronchial artery revealing no source of active hemorrhage. Empiric embolization was performed. Santos Crockett Jr., MD Chest CT 11/28/16 Signed Impressions: Service Date/Time: Tuesday, November 29, 2016 05:13 - CONCLUSION: 1. Patchy alveolar disease characteristic of edema or pneumonia. 2. Severe emphysema 3. Gastrojejunostomy tube looped in the stomach Harvey Morejon MD Chest/Thorax CTA 11/26/16 Signed Impressions: Service Date/Time: Saturday, November 26, 2016 20:18 - CONCLUSION: 1. Extensive filling defects within the right central bronchial tree characteristic of endobronchial hemorrhage. 2. Consolidating airspace disease in the right upper lobe and right lower lobe characteristic of hemorrhage and post obstructive lung consolidation. 3. Right bronchial artery is identified extending to the central right bronchial region 4. Advanced COPD. Nasir Amanda MD Abdomen X-Ray 11/19/16599 Signed Impressions: Service Date/Time: Saturday, November 19, 2016 02:44 - CONCLUSION: Unchanged bowel gas pattern potentially relating to an ileus. Santos Crocektt Jr., MD Transcranial Doppler Study Complete 10/20/16599 Signed Impressions: Service Date/Time: October 07:54 - CONCLUSION: Slight interval elevation of flow velocity measurements and ratio on the left Yosvany Polk MD Liver Ultrasound 10/19/16 Signed Impressions: Service Date/Time: Wednesday, October 19, 2016 11:20 - CONCLUSION: 1. Sludge filled gallbladder with thickened wall. 2. Moderate size bilateral pleural effusions and mild upper abdominal ascites. Santos Vazquez MD Cerebral Arteriogram 10/19/16 Signed Impressions: Service Date/Time: Wednesday, October 19, 2016 12:47 - CONCLUSION: Uncomplicated cerebral arteriography with spasmolytic therapy as described in detail above. Yosvany Polk MD Head CT 10/17/16 Signed Impressions: Service Date/Time: Monday, October 17, 2016 15:06 - CONCLUSION: Ventricles are slightly larger without ventriculostomy. Edema in the left hemisphere the brain herniating through the operative site. Remington Woodward MD FACR Infusion Non-thrombolysis 10/14/16 1103 Signed Impressions: Service Date/Time: Friday, October 14, 2016 10:21 - CONCLUSION: 1. Uncomplicated infusion for spasmolysis Harvey Morejon MD Neck CTA 10/07/16 0000 Signed Impressions: Service Date/Time: Friday, October 07, 2016 15:03 - CONCLUSION: 1. Mild carotid bulb atherosclerotic calcification bilaterally. However, no significant stenosis is present in either internal carotid artery. 2. Paranasal sinus mucoperiosteal thickening. 3. Please refer to brain CTA report for description of the intracranial findings. Yosvany Ramirez MD Head CTA 10/07/16 0000 Signed Impressions: Service Date/Time: Friday, October 07, 2016 15:03 - CONCLUSION: 1. 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 2. Large left subdural hematoma measuring 1.3 cm in depth with a significant, 1.6 cm left to right subfalcine shift. Joni Shelton MD Objective Remarks GENERAL: Pt encountered laying in bed, resting. NAD. SKIN: Warm and dry. Bandage noted at neck in covering trach site, triluminal catheter noted left side of neck. All toes evidenced some blackening at their base, two fingers (fourth finer on right and second on left) evidenced similar blackening. HEAD: Normocephalic. EYES: No scleral icterus. No injection or drainage. NECK: Supple, trachea midline. No lymphadenopathy. CARDIOVASCULAR: Regular rate and rhythm without murmurs, gallops, or rubs. RESPIRATORY: Breath sounds equal bilaterally. No accessory muscle use. GASTROINTESTINAL: Abdomen soft, non-tender, nondistended. Soft bowel sounds present all quadrant. Feeding tube noted. MUSCULOSKELETAL: No cyanosis, or edema. PSYCHIATRIC: Alert and oriented x3, pleasant/cooperative, no overt signs of depression/anxiety. Speech was soft with shore sentences. Procedures 10/13 Four-vessel cerebral angiography with verapamil treatment of vasospasm Medications and IVs Current Medications Medications (Trade) Dose Ordered Sig/Adali Route Start Time Stop Time Status Last Admin Magnesium Sulfate 4 gm/Sodium Chloride 108 ml @ 108 mls/hr UNSCH PRN IV 10/07/16 18:30 (Heparin Inj) 5,000 units Q8HR SQ 10/14/16 22:00 Future Hold 10/1/17 21:20 Calcium Gluconate 1 gm/Sodium Chloride 110 ml @ 110 mls/hr UNSCH PRN IV 10/18/16 09:45 10/18/16 10:22 (NS Flush) 2 ml UNSCH PRN IV FLUSH 10/19/16 09:45 (NS Flush) 2 ml BID IV FLUSH 10/19/16 21:00 12/22/16 09:00 (Tears Naturale Opth Soln) 1 drop TID EACH EYE 10/19/16 13:00 12/22/16 13:00 (Albuterol Neb) 2.5 mg Q2HR NEB PRN INH 10/19/16 09:45 11/22/16 22:09 Miscellaneous Information 1 Q361D XX 10/19/16 09:45 (Chlorhexidine 2% Cloth) Taper DAILY@04 TOP 10/20/16 04:00 10/16/17 03:59 12/14/16 03:08 (Chlorhexidine 2% Cloth) 3 pack UNSCH PRN TOP 10/19/16 09:45 (Keppra Liq) 500 mg Q12HR NG 10/31/16 21:00 12/22/16 07:43 (Melatonin) 5 mg HS PO 11/01/16 21:00 12/21/16 21:00 (Cardizem) 90 mg Q6HR PO 11/02/16 12:00 12/22/16 05:31 (Zofran Inj) 4 mg Q6H PRN IV PUSH 11/18/16 01:45 (Baciguent Oint) 1 applic Q12HR TOPICAL 11/18/16 11:00 12/21/16 21:00 (Beneprotein Powder) 1 pack TID G-TUBE 11/19/16 09:00 12/22/16 13:00 (Betadine 10% Oint) 1 applic DAILY TOPICAL 11/24/16 09:00 12/21/16 09:00 (Peridex 0.12% Liq) 15 ml BID@08,20 MT 11/26/16 20:00 12/22/16 08:00 (Santyl Oint) 1 applic DAILY TOPICAL 11/30/16 12:00 12/22/16 07:44 (Tylenol) 650 mg Q4H PRN PO 11/30/16 13:15 12/20/16 14:32 (Racepinephrine 2.25% Neb) 0.5 ml Q4HR NEB PRN NEB 12/03/16 15:00 (Nitroglycerin 2% Oint) 2 inch Q6H PRN TOPICAL 12/04/16 09:15 (Catapres) 0.1 mg Q8H PO 12/04/16 10:00 12/22/16 02:50 (Vasotec Inj) 1.25 mg Q6H PRN IV PUSH 12/04/16 09:15 (NS Flush) DAILY IV FLUSH 12/04/16 18:00 12/22/16 07:43 (NS Flush) UNSCH PRN IV FLUSH 12/04/16 18:00 (Imodium Liq) 2 mg UNSCH PRN PO 12/14/16 10:45 (Lactinex) 1 tab TID PO 12/14/16 18:00 12/22/16 13:00 (Pepcid) 20 mg BID PO 12/16/16 21:00 12/22/16 07:43 (Ferrous Sulfate) 325 mg BID@, PO 12/22/16 12:00 12/22/16 13:47 (Vitamin C) 500 mg BID PO 12/22/16 09:00 12/22/16 09:00 (Hibiclens 4% Top Soln) 1 applic HS TOP 12/22/16 21:00 12/26/16 21:01 Urinary Catheter: No Date of Insertion: Dec 04, 2016 Line: Central Venous Catheter Side: Left Location: Internal, Jugular A/P Problem List: (1) Subarachnoid hemorrhage due to ruptured aneurysm ICD Code: I60.8 - Other nontraumatic subarachnoid hemorrhage (2) Subdural hematoma ICD Code: I62.00 - Nontraumatic subdural hemorrhage, unspecified (3) Intracranial aneurysm ICD Code: I67.1 - Cerebral aneurysm, nonruptured (4) Respiratory failure ICD Code: J96.90 - Respiratory failure, unspecified, unspecified whether with hypoxia or hypercapnia Status: Acute Assessment and Plan 56-year-old male presents with intracranial bleed, was transferred from [facility]. S/P left frontotemporal parietal craniotomy: Neurosurgery consulted to address placement of bone flap. Pt may have bone flap surgery next week. Anemia: Iron deficient anemia. Iron supplementation with coadministered vitamin C ordered. Status post left frontotemporal parietal craniectomy 10/08 for evacuation subdural hematoma/duraplasty Left subdural hematoma - 1.3 cm with 1.6 shift left to right Subarachnoid hemorrhage Alvarado and Rodriguez 5, Carroll grade 4 - left P-comm status post 4 coiling 10/08 Hypoxic-Ischemic Encephalopathy - Nimodipine completed 21 days. Initiated 10/13. - Levetiracetam 500 mg per tube q12h. - 10/13 and 10/14 and 10/17) 10/19 left MCA territory vasospasm, status post successful verapamil treatment by IR with 20 mg verapamil - 10/17 CT brain - less hemisphere edema with herniation through left craniotomy site, now improved. - Dr. Perry/neurosurgery. Plan to replace bone flap in the future - Echocardiogram 10/14/16 revealed EF 40-45%. Septal hypokinesis. Moderate MR. Severe pulmonary hypertension with pulmonary artery pressures estimated 61 mmHg Limited Echo 11/06: LVEF 60-65%, Trivial mitral and tricuspid regurgitation, No vegetations noted. - Continue diltiazem's 90 mg by mouth every 6 hours and furosemide 20 mg daily - neurologically stable and doing well, and continued PT and rehabilitation. - PT, OT, speech following. Patient will need helmet when out of bed to chair. Helmet at bedside - Patient activity should be increased to out of bed to chair with helmet. Respiratory failure, S/P tracheostomy - S/p Trach Dr. Sullivan/Dr. Collazo 11/01 #8 [place] - CT angiogram chest/neck revealed right centrilobular bleeding likely source right bronchial artery. Repeat CT chest 11/29no visualization of active bleeding.- Resolved - 12/01 - embolization of right bronchial artery by IR- no further bleeding from tracheostomy - Redo trach 11/[address] Sullivan; down sized to uncuffed fenestrated 6 tracheostomy on 12/14 and now capped. - Albuterol/ipratropium aerosols every 6 hours with albuterol aerosols - Dr. Wilson plan is to downsize tube and probably considering tracheostomy removal - Tolerated tracheostomy capping. Has been decannulated. Tolerating room air. - Monitor Respiratory status Ileus- improving. Monitor Elevated transaminases Hyperammonemia Severe protein caloric malnutrition- continue with tube feeds as tolerated. - Currently on Glucerna 1.5 goal 60 cc an hour. Consult sack cleaner to review formula. - free water per G tube 200mL per tube q6h. - Lansoprazole 30 mg by tube daily for GI prophylaxis will change this to Pepcid - Continue bowel regimen - Reglan DC 12/13- stools amount decreased and thicker in consistency- continue to monitor - Continue PEG feeding. s/p PEG 11/12/16 - speech following for swallowing progress - Tube feeds only at night, patient has regular trach during the daytime, will order ensure pudding - Dietitian consulted to reevaluate tube feeding rate. Right occlusive subclavian, axillary and bilateral superficial cephalic thrombus - limited Echo to evaluate vegetation-neg. ID following - Digital Ischemia with necrosis involving all toes and left 2nd finger and right ringer finger- stable, conservative management - Digits have demarcated, allow auto amputation. Cardizem PO currently and 90 mg every 6 hours (for digital ischemia, Raynaud's) - Continue bacitracin twice a day to affected areas - Central line for IV access. We'll need to be started on systemic anticoagulation at some point however with recent embolization for hemoptysis holding full anticoagulation at this time. Stage 2 sacral ulcer - ABD dressing with [employer]- staff nurse makes sure to keep area dry - Turn position every 2 hours - Out of bed to chair activity Course of hospitalization complications Acute hypoxic Respiratory failure secondary to mucous plugging- Resolved Possible healthcare associated pneumonia, Septic Shock- resolved. ARDS - resolved Noncardiogenic/neurogenic pulmonary edema- resolved. Massive Hemoptysis - resolved Aspiration pneumonitis - resolved Cerebral Salt Wasting/SIADH-resolved now hypernatremic - Creatinine currently within normal limits -> resolved. - Monitor urine output Septic and cardiogenic shock- resolved. LV dysfunction secondary to SAH - persistent, now resolved Elevated troponin- secondary to SAH, unlikely to be ACS. - resolved. Pulmonary hypertension s/p PEA arrest 11/28 after ETT dislodgement, hypoxic arrest DVT prop SCD, no chemoprophylaxis secondary to risk for bleeding Full Code Discussed with patient, nursing, and Dr. Moore Discharge Planning Pending SSI. Placement will be in longterm facility or long-term care. CM following. Problem Qualifiers (1) Respiratory failure: Qualified Codes: J96.00 - Acute respiratory failure, unspecified whether with hypoxia or hypercapnia Bonifacio Schmidt Jr. Dec 22, 2016 14:13
--- NOTE | 2016-12-22 15:46 | HHI.NSPN ---
(Malinda Hines) Note Status Status: Progress Note (Malinda Hines) Interval History Interval History This is a 56-year-old male brought to the emergency room as an emergency transfer from another institution with history of intracranial bleed. He was transferred from [facility] and [facility]. Apparently the patient said that patient earlier this morning was coming down the stairs when he started feeling some left-sided weakness and numbness. He called 911 and by the time EMS arrived they detected severe neurological deficits and called a stroke alert. No seizure activity reported. No tongue biting. No incontinence of stool or urine. Patient was taken to [facility]. Apparently he was not able to move his right side . When patient arrived his mental status started to decline and he was intubated emergently in the ER for airway protection. A CT scan of the head showed extensive subarachnoid bleed. In addition he had a sizable subdural hematoma. He was brought emergently on the ventilator. He was on a propofol drip and well sedated. GCS was 3. He was on a Cardene drip and blood pressure was in the 120s. Neurosurgical consultation was requested 10/08. POD #1 Open eyes and follows commands 10/12. Doing very well. Neurologically stable. Patient is in restraints secondary to pulling out his Maldonado multiple times. 10/13. Much more lethargic, difficult to speak with new aphasia 10/14. Improved after angiography. Today he developed new onset of aphasia and right hemiparesis 10/17. Intubated and sedated. Lung infiltrates dense bilaterally, reflected in shunting and problems with oxygenation. 10/18: underwent endovascular verapamil infusion to left MCA vasospasm yesterday. TCD today pending. left flap pak today. Intubated and sedated. continues to be on multiple pressors. on 3% NS. 10/19: currently unstable for travel for repeat CT Head this am. no changes with neuro checks, remains intubated, sedated. pupils equal. continues on multiple pressors support 10/20: intubated and mildly sedated. remains on multiple pressors. pneumonia worsening. TCD this am reports slight increase in flow velocity to left, he underwent cerebral angiography yesterday with endovascular verapamil infusion right ICA. 10/21: intubated, sedated on fentanyl and versed. On Nimbex. 10/25: off Nimbex. Mildly opening eyes today. 10/26: opening eyes more today, ?focusing 10/27: intubated, minimal eye opening. not following commands. 10/28: appears more awake, following commands, focusing and tracked. shook head no when asked if doing ok. 10/31: remains intubated, tracking more today, not following with extremities 11/01: nursing reports intermittently follows commands to upper extremities. for tracheostomy today. 11/02: s/p tracheostomy, smiling today, following commands. 11/03: smiling and nodding appropriately. PT at bedside. 11/04: mouthing some words today, no acute events overnight 11/07: doing well, left craniectomy site well decompressed. febrile, ID consulted. 11/08: no changes to neuro examination, low grade fevers again this morning 12/22: reconsulted for evaluation for cranioplasty (Malinda Hines) Labs, Micro, & Vital Signs Results Date Time Temp Pulse Resp B/P (MAP) Pulse Ox O2 Delivery O2 Flow Rate FiO2 12/22/16 12:41 98 21 12/22/16 11:30 98.0 67 20 118/67 (84) 99 12/22/16 08:32 98.7 65 20 122/59 (80) 98 12/22/16 04:00 97.3 60 18 115/62 (79) 97 12/22/16 00:40 97.5 66 18 123/59 (80) 96 12/21/16 20:35 97.8 67 18 130/63 (85) 97 12/21/16 16:20 98.8 65 18 118/60 (79) 99 Constitutional Vital Signs Date Time Temp Pulse Resp B/P (MAP) Pulse Ox O2 Delivery O2 Flow Rate FiO2 12/22/16 12:41 98 21 12/22/16 11:30 98.0 67 20 118/67 (84) 99 12/22/16 08:32 98.7 65 20 122/59 (80) 98 12/22/16 04:00 97.3 60 18 115/62 (79) 97 12/22/16 00:40 97.5 66 18 123/59 (80) 96 12/21/16 20:35 97.8 67 18 130/63 (85) 97 12/21/16 16:20 98.8 65 18 118/60 (79) 99 (Malinda Hines) Review of Systems ROS Limitations: Clinical Condition (Malinda Hines) Physical Exam Left flap decompressed alert, nodding (Malinda Hines) Medical Decision Making MDM Remarks 56 y/o male with subarachnoid hemorrhage, status post coiling posterior communicating artery aneurysm. s/p left decompressive craniectomy. Left craniectomy site now well decompressed. (Malinda Hines) Plan Plan Remarks medical clearance for cranioplasty, anticipate surgery to be scheduled for early next week [facility] (Malinda Hines) Attending Statement The exam, history, and the medical decision-making described in the above note were completed with the assistance of the mid-level provider. I reviewed and agree with the findings presented. I attest that I had a [id number] encounter with the patient on the same day, and personally performed and documented my assessment and findings in the medical record. (George Perry MD) Malinda Hines Dec 22, 2016 15:46 George Perry MD Dec 22, 2016 21:07
[2016-12-22] MEDS: CHLORHEXIDINE GLUCONATE 4% SOLN 120 ML BTL TOP SCH (21:00)
[2016-12-22] MEDS: MELATONIN 5 MG TAB PO SCH (21:47)
[2016-12-23] VITALS (7 sets, daily range): BP systolic 105–133; BP diastolic 54–68; PULSE 58–75; RESP 16–18; TEMP 97.9–99; O2SAT 95–100
[2016-12-23] MEDS: DILTIAZEM HCL 90 MG TAB PO SCH ×4 (00:53→18:39)
[2016-12-23] MEDS: cloNIDine HCL 0.1 MG TAB PO SCH ×3 (02:00→18:39)
[2016-12-23] MEDS: CHLORHEXIDINE GLUCONATE 2 % 1 PACK (2 CLOTHS) TOP SCH (02:20)
[2016-12-23] MEDS: CHLORHEXIDINE 0.12% (ORAL KIT) 15 ML CUP MT SCH ×2 (08:00→20:00)
[2016-12-23] MEDS: SODIUM CHLORIDE 0.9% FLUSH 10 ML FLUSH IV FLUSH SCH ×3 (09:00→20:24)
[2016-12-23] MEDS: POVIDONE IODINE 10% OINT 30 GM TUBE TOPICAL SCH (09:00)
[2016-12-23] MEDS: ARTIFICIAL TEARS OPTH SOLN 15 ML BTL EACH EYE SCH ×3 (09:00→18:00)
[2016-12-23] MEDS: BACITRACIN TOP OINT 15 GM TUBE TOPICAL SCH ×2 (09:00→20:24)
[2016-12-23] MEDS: BENEPROTEIN POWDER 1 PACK G-TUBE SCH ×3 (09:00→18:00)
[2016-12-23] MEDS: COLLAGENASE OINT 30 GM TUBE TOPICAL SCH (09:00)
--- NOTE | 2016-12-23 09:43 | RADRPT ---
EXAM DATE/TIME: 12/23/2016 09:11 [place] COMPARISON: No previous studies available for comparison. INDICATIONS : Dysphagia. FLUORO TIME: 2.1 minutes IMAGE COUNT: 1 CONTRAST: Dose as prescribed by speech pathologist. MEDICAL HISTORY : intracranial hemorrhage SURGICAL HISTORY : bone removal in skull ENCOUNTER: Initial ACUITY: 1 day PAIN SCORE: 0/10 LOCATION: Bilateral neck FINDINGS: A modified barium swallow was performed with speech pathology. Patient was given a variety of liquids to swallow. There is no aspiration. For a full detailed report, see report by the speech pathologist. CONCLUSION: Negative for aspiration.. Remington Woodward MD FACR on December 23, 2016 at 9:41 Board Certified Radiologist. This report was verified electronically.
[2016-12-23] MEDS: FAMOTIDINE 20 MG TAB PO SCH ×2 (10:46→20:24)
[2016-12-23] MEDS: LACTOBACILLUS ACIDOPHILUS TAB PO SCH ×3 (10:46→18:39)
[2016-12-23] MEDS: ASCORBIC ACID 500 MG TAB PO SCH ×2 (10:47→20:24)
[2016-12-23] MEDS: levETIRAcetam 500 MG/5 ML UDC NG SCH ×2 (12:38→20:24)
[2016-12-23] MEDS: FERROUS SULFATE 325 MG (65 MG ELEMENTAL IRON) TAB PO SCH ×2 (12:38→18:39)
--- NOTE | 2016-12-23 14:52 | HHI.PR ---
Subjective Remarks Follow-up visit subarachnoid hemorrhage, status post left frontotemporal parietal craniectomy for evacuation of subdural hematoma, duraplasty, Status post PEG & trach. Patient seen and examined laying in bed resting.. Pt eating and speaking. Pt noted his appetite is "ok". Denied new issues. Pt denied fever, cough, NVD, throat pain, abdominal/chest pain, shortness of breath. Per RN (Joni) no new acute issues noted overnight or since start of shift. Objective Vitals Vital Signs Date Time Temp Pulse Resp B/P (MAP) Pulse Ox O2 Delivery O2 Flow Rate FiO2 12/23/16 14:19 98.2 63 17 105/54 (71) 100 12/23/16 10:30 98.3 58 16 117/59 (78) 99 12/23/16 09:35 97 12/23/16 04:45 21 12/23/16 04:00 98.1 63 18 122/67 (85) 95 12/23/16 01:15 97.9 71 18 113/65 (81) 98 12/22/16 20:53 97.6 65 18 113/59 (77) 96 12/22/16 16:55 98.7 77 20 128/68 (88) 98 I/O 12/22/16 12/22/16 12/22/16 12/23/16 12/23/16 12/23/16 07:00 15:00 23:00 07:00 15:00 23:00 Intake Total 720 ml Balance 720 ml Intake Oral 720 ml # Voids 3 5 3 # Bowel Movements 2 1 Result Diagram: 12/22/16 0525 12/22/16 0525 Objective Remarks GENERAL: Pt encountered laying in bed, resting. NAD. SKIN: Warm and dry. Bandage noted at neck in covering trach site, triluminal catheter noted left side of neck. All toes evidenced some blackening at their base, two fingers (fourth finger on right and second on left) evidenced similar blackening. HEAD: Normocephalic. EYES: No scleral icterus. No injection or drainage. NECK: Supple, trachea midline. No lymphadenopathy. CARDIOVASCULAR: Regular rate and rhythm without murmurs, gallops, or rubs. RESPIRATORY: Breath sounds equal bilaterally. No accessory muscle use. GASTROINTESTINAL: Abdomen soft, non-tender, nondistended. Soft bowel sounds present all quadrant. Feeding tube noted. MUSCULOSKELETAL: No cyanosis, or edema. PSYCHIATRIC: Alert and oriented x3, pleasant/cooperative, no overt signs of depression/anxiety. Speech was soft with short sentences. Procedures 10/13 Four-vessel cerebral angiography with verapamil treatment of vasospasm Medications and IVs Current Medications Medications (Trade) Dose Ordered Sig/Adali Route Start Time Stop Time Status Last Admin Magnesium Sulfate 4 gm/Sodium Chloride 108 ml @ 108 mls/hr UNSCH PRN IV 10/07/16 18:30 (Heparin Inj) 5,000 units Q8HR SQ 10/14/16 22:00 Future Hold 11/13/16 21:20 Calcium Gluconate 1 gm/Sodium Chloride 110 ml @ 110 mls/hr UNSCH PRN IV 10/18/16 09:45 10/18/16 10:22 (NS Flush) 2 ml UNSCH PRN IV FLUSH 10/19/16 09:45 (NS Flush) 2 ml BID IV FLUSH 10/19/16 21:00 12/23/16 09:00 (Tears Naturale Opth Soln) 1 drop TID EACH EYE 10/19/16 13:00 12/23/16 12:39 (Albuterol Neb) 2.5 mg Q2HR NEB PRN INH 10/19/16 09:45 11/22/16 22:09 Miscellaneous Information 1 Q361D XX 10/19/16 09:45 (Chlorhexidine 2% Cloth) Taper DAILY@04 TOP 10/20/16 04:00 10/16/17 03:59 12/14/16 03:08 (Chlorhexidine 2% Cloth) 3 pack UNSCH PRN TOP 10/19/16 09:45 (Keppra Liq) 500 mg Q12HR NG 10/31/16 21:00 12/23/16 12:38 (Melatonin) 5 mg HS PO 11/01/16 21:00 12/22/16 21:47 (Cardizem) 90 mg Q6HR PO 11/02/16 12:00 12/23/16 12:38 (Zofran Inj) 4 mg Q6H PRN IV PUSH 11/18/16 01:45 (Baciguent Oint) 1 applic Q12HR TOPICAL 11/18/16 11:00 12/22/16 21:46 (Beneprotein Powder) 1 pack TID G-TUBE 11/19/16 09:00 12/23/16 12:39 (Betadine 10% Oint) 1 applic DAILY TOPICAL 11/24/16 09:00 12/21/16 09:00 (Peridex 0.12% Liq) 15 ml BID@08,20 MT 11/26/16 20:00 12/23/16 08:00 (Santyl Oint) 1 applic DAILY TOPICAL 11/30/16 12:00 12/22/16 07:44 (Tylenol) 650 mg Q4H PRN PO 11/30/16 13:15 12/20/16 14:32 (Racepinephrine 2.25% Neb) 0.5 ml Q4HR NEB PRN NEB 12/03/16 15:00 (Nitroglycerin 2% Oint) 2 inch Q6H PRN TOPICAL 12/04/16 09:15 (Catapres) 0.1 mg Q8H PO 12/04/16 10:00 12/23/16 10:46 (Vasotec Inj) 1.25 mg Q6H PRN IV PUSH 12/04/16 09:15 (NS Flush) DAILY IV FLUSH 12/04/16 18:00 12/23/16 09:00 (NS Flush) UNSCH PRN IV FLUSH 12/04/16 18:00 (Imodium Liq) 2 mg UNSCH PRN PO 12/14/16 10:45 (Lactinex) 1 tab TID PO 12/14/16 18:00 12/23/16 12:38 (Pepcid) 20 mg BID PO 12/16/16 21:00 12/23/16 10:46 (Ferrous Sulfate) 325 mg BID@ PO 12/22/16 12:00 12/23/16 12:38 (Vitamin C) 500 mg BID PO 12/22/16 09:00 12/23/16 10:47 (Hibiclens 4% Top Soln) 1 applic HS TOP 12/22/16 21:00 12/26/16 21:01 12/22/16 21:00 Urinary Catheter: No Date of Insertion: Dec 04, 2016 Line: Central Venous Catheter Side: Left Location: Internal, Jugular A/P Problem List: (1) Subarachnoid hemorrhage due to ruptured aneurysm ICD Code: I60.8 - Other nontraumatic subarachnoid hemorrhage (2) Subdural hematoma ICD Code: I62.00 - Nontraumatic subdural hemorrhage, unspecified (3) Intracranial aneurysm ICD Code: I67.1 - Cerebral aneurysm, nonruptured (4) Respiratory failure ICD Code: J96.90 - Respiratory failure, unspecified, unspecified whether with hypoxia or hypercapnia Status: Acute Assessment and Plan 56-year-old male presents with intracranial bleed, was transferred from [facility]. S/P left frontotemporal parietal craniotomy: Pt to have left bone flap placement placed. Surgery to be "early next week". Modified swallow study completed. Advised to advance diet to mechanical soft solids, ground meats, and nectar thick liquids. Anemia: Iron deficient anemia. Pt tolerating new medications. Status post left frontotemporal parietal craniectomy 10/08 for evacuation subdural hematoma/duraplasty Left subdural hematoma - 1.3 cm with 1.6 shift left to right Subarachnoid hemorrhage Alvarado and Rodriguez 5, Carroll grade 4 - left P-comm status post 4 coiling 10/08 Hypoxic-Ischemic Encephalopathy - Nimodipine completed 21 days. Initiated 10/13. - Levetiracetam 500 mg per tube q12h. - 10/13 and 10/14 and 10/17) 10/19 left MCA territory vasospasm, status post successful verapamil treatment by IR with 20 mg verapamil - 10/17 CT brain - less hemisphere edema with herniation through left craniotomy site, now improved. - Dr. Perry/neurosurgery. Plan to replace bone flap in the future - Echocardiogram 10/14/16 revealed EF 40-45%. Septal hypokinesis. Moderate MR. Severe pulmonary hypertension with pulmonary artery pressures estimated 61 mmHg Limited Echo 11/06: LVEF 60-65%, Trivial mitral and tricuspid regurgitation, No vegetations noted. - Continue diltiazem's 90 mg by mouth every 6 hours and furosemide 20 mg daily - neurologically stable and doing well, and continued PT and rehabilitation. - PT, OT, speech following. Patient will need helmet when out of bed to chair. Helmet at bedside - Patient activity should be increased to out of bed to chair with helmet. Respiratory failure, S/P tracheostomy - S/p Trach Dr. Sullivan/Dr. Collazo 9/19 #8 [place] - CT angiogram chest/neck revealed right centrilobular bleeding likely source right bronchial artery. Repeat CT chest 11/29no visualization of active bleeding.- Resolved - 12/01 - embolization of right bronchial artery by IR- no further bleeding from tracheostomy - Redo trach 11/[address] Sullivan; down sized to uncuffed fenestrated 6 tracheostomy on 12/14 and now capped. - Albuterol/ipratropium aerosols every 6 hours with albuterol aerosols - Dr. Wilson plan is to downsize tube and probably considering tracheostomy removal - Tolerated tracheostomy capping. Has been decannulated. Tolerating room air. - Monitor Respiratory status Ileus- improving. Monitor Elevated transaminases Hyperammonemia Severe protein caloric malnutrition- continue with tube feeds as tolerated. - Currently on Glucerna 1.5 goal 60 cc an hour. Consult doctor of osteopathy to review formula. - free water per G tube 200mL per tube q6h. - Lansoprazole 30 mg by tube daily for GI prophylaxis will change this to Pepcid - Continue bowel regimen - Reglan DC 12/13- stools amount decreased and thicker in consistency- continue to monitor - Continue PEG feeding. s/p PEG 11/12/16 - speech following for swallowing progress - Tube feeds only at night, patient has regular trach during the daytime, will order ensure pudding - Dietitian consulted to reevaluate tube feeding rate. Right occlusive subclavian, axillary and bilateral superficial cephalic thrombus - limited Echo to evaluate vegetation-neg. ID following - Digital Ischemia with necrosis involving all toes and left 2nd finger and right ringer finger- stable, conservative management - Digits have demarcated, allow auto amputation. Cardizem PO currently and 90 mg every 6 hours (for digital ischemia, Raynaud's) - Continue bacitracin twice a day to affected areas - Central line for IV access. We'll need to be started on systemic anticoagulation at some point however with recent embolization for hemoptysis holding full anticoagulation at this time. Stage 2 sacral ulcer - ABD dressing with [employer]- staff nurse makes sure to keep area dry - Turn position every 2 hours - Out of bed to chair activity Course of hospitalization complications Acute hypoxic Respiratory failure secondary to mucous plugging- Resolved Possible healthcare associated pneumonia, Septic Shock- resolved. ARDS - resolved Noncardiogenic/neurogenic pulmonary edema- resolved. Massive Hemoptysis - resolved Aspiration pneumonitis - resolved Cerebral Salt Wasting/SIADH-resolved now hypernatremic - Creatinine currently within normal limits -> resolved. - Monitor urine output Septic and cardiogenic shock- resolved. LV dysfunction secondary to SAH - persistent, now resolved Elevated troponin- secondary to SAH, unlikely to be ACS. - resolved. Pulmonary hypertension s/p PEA arrest 11/28 after ETT dislodgement, hypoxic arrest DVT prop SCD, no chemoprophylaxis secondary to risk for bleeding Full Code Discussed with patient, nursing, and Dr. Moore Discharge Planning Pending SSI. Placement will be in [facility]pc facility or long-term care. CM following. Problem Qualifiers (1) Respiratory failure: Qualified Codes: J96.00 - Acute respiratory failure, unspecified whether with hypoxia or hypercapnia Bonifacio Schmidt Jr. Dec 23, 2016 14:52
--- NOTE | 2016-12-23 16:40 | HHI.PR ---
Subjective Remarks TRACH REMOVED NO SOB Objective GENERAL: SKIN: Warm and dry. HEAD: Atraumatic. Normocephalic. EYES: Pupils equal and round. No scleral icterus. No injection or drainage. ENT: No nasal bleeding or discharge. Mucous membranes pink and moist. NECK: Trachea midline. No JVD. CARDIOVASCULAR: Regular rate and rhythm. RESPIRATORY: No accessory muscle use. Clear to auscultation. Breath sounds equal bilaterally. GASTROINTESTINAL: Abdomen soft, non-tender, nondistended. Hepatic and splenic margins not palpable. MUSCULOSKELETAL: Extremities without clubbing, cyanosis, or edema. No obvious deformities. NEUROLOGICAL: Awake and alert. No obvious cranial nerve deficits. Motor grossly within normal limits. Five out of 5 muscle strength in the arms and legs. Normal speech. PSYCHIATRIC: Appropriate mood and affect; insight and judgment normal. Vital Signs Date Time Temp Pulse Resp B/P (MAP) Pulse Ox O2 Delivery O2 Flow Rate FiO2 12/23/16 14:19 98.2 63 17 105/54 (71) 100 12/23/16 10:30 98.3 58 16 117/59 (78) 99 12/23/16 09:35 97 12/23/16 04:45 21 12/23/16 04:00 98.1 63 18 122/67 (85) 95 12/23/16 01:15 97.9 71 18 113/65 (81) 98 12/22/16 20:53 97.6 65 18 113/59 (77) 96 12/22/16 16:55 98.7 77 20 128/68 (88) 98 I/O 12/22/16 12/22/16 12/22/16 12/23/16 12/23/16 12/23/16 07:00 15:00 23:00 07:00 15:00 23:00 Intake Total 720 ml Balance 720 ml Intake Oral 720 ml # Voids 3 5 3 # Bowel Movements 2 1 Result Diagram: 12/22/1652412/22/16524 Objective Remarks GENERAL: SKIN: Warm and dry. HEAD: Atraumatic. Normocephalic. EYES: Pupils equal and round. No scleral icterus. No injection or drainage. ENT: No nasal bleeding or discharge. Mucous membranes pink and moist. NECK: Trachea midline. No JVD. CARDIOVASCULAR: Regular rate and rhythm. RESPIRATORY: No accessory muscle use. Clear to auscultation. Breath sounds equal bilaterally. TRACHEOSTOMY IN PLACE GASTROINTESTINAL: Abdomen soft, non-tender, nondistended. Hepatic and splenic margins not palpable. MUSCULOSKELETAL: Extremities without clubbing, cyanosis, or edema. No obvious deformities. NEUROLOGICAL: Awake and alert. No obvious cranial nerve deficits. Motor grossly within normal limits. Five out of 5 muscle strength in the arms and legs. Normal speech. PSYCHIATRIC: Appropriate mood and affect; insight and judgment normal. Assessment and Plan Assessment and Plan ALERT NO SOB PLAN TRACH, REMOVED WELL TOLERATED Katie Wilson MD Dec 23, 2016 16:40
[2016-12-23] MEDS: MELATONIN 5 MG TAB PO SCH (20:24)
[2016-12-23] MEDS: CHLORHEXIDINE GLUCONATE 4% SOLN 120 ML BTL TOP SCH (20:24)
[2016-12-24] VITALS (7 sets, daily range): BP systolic 103–117; BP diastolic 53–65; PULSE 55–79; RESP 16–18; TEMP 97.5–99.7; O2SAT 98–100
[2016-12-24] MEDS: DILTIAZEM HCL 90 MG TAB PO SCH ×4 (02:05→18:02)
[2016-12-24] MEDS: cloNIDine HCL 0.1 MG TAB PO SCH ×3 (02:05→17:47)
[2016-12-24] MEDS: CHLORHEXIDINE GLUCONATE 2 % 1 PACK (2 CLOTHS) TOP SCH (04:00)
[2016-12-24] MEDS: CHLORHEXIDINE 0.12% (ORAL KIT) 15 ML CUP MT SCH ×2 (08:00→20:00)
[2016-12-24] MEDS: LACTOBACILLUS ACIDOPHILUS TAB PO SCH ×3 (08:48→18:02)
[2016-12-24] MEDS: ASCORBIC ACID 500 MG TAB PO SCH ×2 (08:51→22:14)
[2016-12-24] MEDS: FAMOTIDINE 20 MG TAB PO SCH ×2 (08:51→22:13)
[2016-12-24] MEDS: levETIRAcetam 500 MG/5 ML UDC NG SCH ×2 (08:52→22:13)
[2016-12-24] MEDS: SODIUM CHLORIDE 0.9% FLUSH 10 ML FLUSH IV FLUSH SCH ×3 (08:53→22:13)
[2016-12-24] MEDS: BENEPROTEIN POWDER 1 PACK G-TUBE SCH ×3 (08:57→18:00)
[2016-12-24] MEDS: ARTIFICIAL TEARS OPTH SOLN 15 ML BTL EACH EYE SCH ×3 (08:57→16:53)
[2016-12-24] MEDS: BACITRACIN TOP OINT 15 GM TUBE TOPICAL SCH ×2 (08:58→21:00)
[2016-12-24] MEDS: POVIDONE IODINE 10% OINT 30 GM TUBE TOPICAL SCH (08:59)
[2016-12-24] MEDS: COLLAGENASE OINT 30 GM TUBE TOPICAL SCH (09:00)
--- NOTE | 2016-12-24 12:12 | HHI.PR ---
Subjective Remarks Follow-up visit subarachnoid hemorrhage, status post left frontotemporal parietal craniectomy for evacuation of subdural hematoma, duraplasty, Status post PEG & trach. Patient seen and examined laying in bed resting. Pt stated he is liking the recent change in diet and "the food is better." Denied new issues. Pt denied fever, cough, NVD, throat pain, abdominal/chest pain, shortness of breath. Per RN, no new acute issues noted overnight or since start of shift. Objective Vitals Vital Signs Date Time Temp Pulse Resp B/P (MAP) Pulse Ox O2 Delivery O2 Flow Rate FiO2 12/24/16 08:14 97.6 63 16 103/57 (72) 99 12/24/16 05:09 97.5 55 18 105/55 (72) 99 12/24/16 00:41 97.9 60 18 116/65 (82) 98 12/23/16 20:10 99.0 75 18 133/68 (89) 100 12/23/16 18:10 98.3 68 17 112/63 (79) 98 12/23/16 14:19 98.2 63 17 105/54 (71) 100 I/O 12/23/16 12/23/16 12/23/16 12/24/16 12/24/16 12/24/16 07:00 15:00 23:00 07:00 15:00 23:00 Intake Total 500 ml Balance 500 ml Intake Oral 500 ml # Voids 3 6 1 # Bowel Movements 1 1 1 Result Diagram: 12/22/1625 12/22/16 0525 Objective Remarks GENERAL: Pt encountered laying in bed, resting. NAD. SKIN: Warm and dry. Bandage noted at neck in covering trach site, triluminal catheter noted left side of neck. All toes evidenced some blackening at their base, two fingers (fourth finger on right and second on left) evidenced similar blackening. HEAD: Normocephalic. EYES: No scleral icterus. No injection or drainage. NECK: Supple, trachea midline. No lymphadenopathy. CARDIOVASCULAR: Regular rate and rhythm without murmurs, gallops, or rubs. RESPIRATORY: Breath sounds equal bilaterally. No accessory muscle use. GASTROINTESTINAL: Abdomen soft, non-tender, nondistended. Soft bowel sounds present all quadrant. Feeding tube noted. MUSCULOSKELETAL: No cyanosis, or edema. PSYCHIATRIC: Alert and oriented x3, pleasant/cooperative, no overt signs of depression/anxiety. Speech was soft with short sentences. Procedures 10/13 Four-vessel cerebral angiography with verapamil treatment of vasospasm Medications and IVs Current Medications Medications (Trade) Dose Ordered Sig/Adali Route Start Time Stop Time Status Last Admin Magnesium Sulfate 4 gm/Sodium Chloride 108 ml @ 108 mls/hr UNSCH PRN IV 10/07/16 18:30 (Heparin Inj) 5,000 units Q8HR SQ 10/14/16 22:00 Future Hold 11/13/16 21:20 Calcium Gluconate 1 gm/Sodium Chloride 110 ml @ 110 mls/hr UNSCH PRN IV 10/18/16 09:45 10/18/16 10:22 (NS Flush) 2 ml UNSCH PRN IV FLUSH 10/19/16 09:45 (NS Flush) 2 ml BID IV FLUSH 10/19/16 21:00 12/24/16 08:53 (Tears Naturale Opth Soln) 1 drop TID EACH EYE 10/19/16 13:00 12/23/16 18:00 (Albuterol Neb) 2.5 mg Q2HR NEB PRN INH 10/19/16 09:45 11/22/16 22:09 Miscellaneous Information 1 Q361D XX 10/19/16 09:45 (Chlorhexidine 2% Cloth) Taper DAILY@04 TOP 10/20/16 04:00 10/16/17 03:59 12/24/16 04:00 (Chlorhexidine 2% Cloth) 3 pack UNSCH PRN TOP 10/19/16 09:45 (Keppra Liq) 500 mg Q12HR NG 10/31/16 21:00 12/24/16 08:52 (Melatonin) 5 mg HS PO 11/01/16 21:00 12/23/16 20:24 (Cardizem) 90 mg Q6HR PO 11/02/16 12:00 12/24/16 02:05 (Zofran Inj) 4 mg Q6H PRN IV PUSH 11/18/16 01:45 (Baciguent Oint) 1 applic Q12HR TOPICAL 11/18/16 11:00 12/23/16 20:24 (Beneprotein Powder) 1 pack TID G-TUBE 11/19/16 09:00 12/24/16 08:57 (Betadine 10% Oint) 1 applic DAILY TOPICAL 11/24/16 09:00 12/23/16 09:00 (Peridex 0.12% Liq) 15 ml BID@08,20 MT 11/26/16 20:00 12/23/16 20:00 (Santyl Oint) 1 applic DAILY TOPICAL 11/30/16 12:00 12/24/16 09:00 (Tylenol) 650 mg Q4H PRN PO 11/30/16 13:15 12/20/16 14:32 (Racepinephrine 2.25% Neb) 0.5 ml Q4HR NEB PRN NEB 12/03/16 15:00 (Nitroglycerin 2% Oint) 2 inch Q6H PRN TOPICAL 12/04/16 09:15 (Catapres) 0.1 mg Q8H PO 12/04/16 10:00 12/24/16 02:05 (Vasotec Inj) 1.25 mg Q6H PRN IV PUSH 12/04/16 09:15 (NS Flush) DAILY IV FLUSH 12/04/16 18:00 12/23/16 09:00 (NS Flush) UNSCH PRN IV FLUSH 12/04/16 18:00 (Imodium Liq) 2 mg UNSCH PRN PO 12/14/16 10:45 (Lactinex) 1 tab TID PO 12/14/16 18:00 12/24/16 08:48 (Pepcid) 20 mg BID PO 12/16/16 21:00 12/24/16 08:51 (Ferrous Sulfate) 325 mg BID@ PO 12/22/16 12:00 12/23/16 18:39 (Vitamin C) 500 mg BID PO 12/22/16 09:00 12/24/16 08:51 (Hibiclens 4% Top Soln) 1 applic HS TOP 12/22/16 21:00 12/26/16 21:01 12/23/16 20:24 Urinary Catheter: No Date of Insertion: Dec 04, 2016 Line: Central Venous Catheter Side: Left Location: Internal, Jugular A/P Problem List: (1) Subarachnoid hemorrhage due to ruptured aneurysm ICD Code: I60.8 - Other nontraumatic subarachnoid hemorrhage (2) Subdural hematoma ICD Code: I62.00 - Nontraumatic subdural hemorrhage, unspecified (3) Intracranial aneurysm ICD Code: I67.1 - Cerebral aneurysm, nonruptured (4) Respiratory failure ICD Code: J96.90 - Respiratory failure, unspecified, unspecified whether with hypoxia or hypercapnia Status: Acute Assessment and Plan 56-year-old male presents with intracranial bleed, was transferred from [facility]. S/P left frontotemporal parietal craniotomy: Noted surgery ordered Hibiclens in advance of surgery. Pt tolerating diet that was advanced yesterday. Respiratory: Pt s/p decannulation. Not supplemental oxygen has been required. Status post left frontotemporal parietal craniectomy 10/08 for evacuation subdural hematoma/duraplasty Left subdural hematoma - 1.3 cm with 1.6 shift left to right Subarachnoid hemorrhage Alvarado and Rodriguez 5, Carroll grade 4 - left P-comm status post 4 coiling 10/08 Hypoxic-Ischemic Encephalopathy - Nimodipine completed 21 days. Initiated 10/13. - Levetiracetam 500 mg per tube q12h. - 10/13 and 10/14 and 10/17) 10/19 left MCA territory vasospasm, status post successful verapamil treatment by IR with 20 mg verapamil - 10/17 CT brain - less hemisphere edema with herniation through left craniotomy site, now improved. - Dr. Perry/neurosurgery. Plan to replace bone flap in the future - Echocardiogram 10/14/16 revealed EF 40-45%. Septal hypokinesis. Moderate MR. Severe pulmonary hypertension with pulmonary artery pressures estimated 61 mmHg Limited Echo 11/06: LVEF 60-65%, Trivial mitral and tricuspid regurgitation, No vegetations noted. - Continue diltiazem's 90 mg by mouth every 6 hours and furosemide 20 mg daily - neurologically stable and doing well, and continued PT and rehabilitation. - PT, OT, speech following. Patient will need helmet when out of bed to chair. Helmet at bedside - Patient activity should be increased to out of bed to chair with helmet. Respiratory failure, S/P tracheostomy - S/p Trach Dr. Sullivan/Dr. Collazo 11/01 #8 [place] - CT angiogram chest/neck revealed right centrilobular bleeding likely source right bronchial artery. Repeat CT chest 11/29no visualization of active bleeding.- Resolved - 12/01 - embolization of right bronchial artery by IR- no further bleeding from tracheostomy - Redo trach 11/[address] Sullivan; down sized to uncuffed fenestrated 6 tracheostomy on 12/14 and now capped. - Albuterol/ipratropium aerosols every 6 hours with albuterol aerosols - Dr. Wilson plan is to downsize tube and probably considering tracheostomy removal - Tolerated tracheostomy capping. Has been decannulated. Tolerating room air. - Monitor Respiratory status Ileus- improving. Monitor Elevated transaminases Hyperammonemia Severe protein caloric malnutrition- continue with tube feeds as tolerated. - Currently on Glucerna 1.5 goal 60 cc an hour. Consult astronomy department chair to review formula. - free water per G tube 200mL per tube q6h. - Lansoprazole 30 mg by tube daily for GI prophylaxis will change this to Pepcid - Continue bowel regimen - Reglan DC 12/13- stools amount decreased and thicker in consistency- continue to monitor - Continue PEG feeding. s/p PEG 11/12/16 - speech following for swallowing progress - Tube feeds only at night, patient has regular trach during the daytime, will order ensure pudding - Dietitian consulted to reevaluate tube feeding rate. Right occlusive subclavian, axillary and bilateral superficial cephalic thrombus - limited Echo to evaluate vegetation-neg. ID following - Digital Ischemia with necrosis involving all toes and left 2nd finger and right ringer finger- stable, conservative management - Digits have demarcated, allow auto amputation. Cardizem PO currently and 90 mg every 6 hours (for digital ischemia, Raynaud's) - Continue bacitracin twice a day to affected areas - Central line for IV access. We'll need to be started on systemic anticoagulation at some point however with recent embolization for hemoptysis holding full anticoagulation at this time. Stage 2 sacral ulcer - ABD dressing with [employer]- staff nurse makes sure to keep area dry - Turn position every 2 hours - Out of bed to chair activity Course of hospitalization complications Acute hypoxic Respiratory failure secondary to mucous plugging- Resolved Possible healthcare associated pneumonia, Septic Shock- resolved. ARDS - resolved Noncardiogenic/neurogenic pulmonary edema- resolved. Massive Hemoptysis - resolved Aspiration pneumonitis - resolved Cerebral Salt Wasting/SIADH-resolved now hypernatremic - Creatinine currently within normal limits -> resolved. - Monitor urine output Septic and cardiogenic shock- resolved. LV dysfunction secondary to SAH - persistent, now resolved Elevated troponin- secondary to SAH, unlikely to be ACS. - resolved. Pulmonary hypertension s/p PEA arrest 11/28 after ETT dislodgement, hypoxic arrest DVT prop SCD, no chemoprophylaxis secondary to risk for bleeding Full Code Discussed with patient, nursing, and Dr. Guardado Discharge Planning Pending SSI. Placement will be in prison facility or long-term care. CM following. Problem Qualifiers (1) Respiratory failure: Qualified Codes: J96.00 - Acute respiratory failure, unspecified whether with hypoxia or hypercapnia Bonifacio Schmidt Jr. Dec 24, 2016 12:12
[2016-12-24] MEDS: FERROUS SULFATE 325 MG (65 MG ELEMENTAL IRON) TAB PO SCH ×2 (12:17→18:02)
--- NOTE | 2016-12-24 18:54 | HHI.PR ---
Subjective Remarks TRACH REMOVED NO SOB Objective Vital Signs Date Time Temp Pulse Resp B/P (MAP) Pulse Ox O2 Delivery O2 Flow Rate FiO2 12/24/16 18:07 99 21 12/24/16 16:10 99.7 79 16 106/57 (73) 99 12/24/16 12:36 98.9 63 16 106/53 (70) 100 12/24/16 08:14 97.6 63 16 103/57 (72) 99 12/24/16 05:09 97.5 55 18 105/55 (72) 99 12/24/16 00:41 97.9 60 18 116/65 (82) 98 12/23/16 20:10 99.0 75 18 133/68 (89) 100 I/O 12/23/16 12/23/16 12/23/16 12/24/16 12/24/16 12/24/16 07:00 15:00 23:00 07:00 15:00 23:00 Intake Total 500 ml Balance 500 ml Intake Oral 500 ml # Voids 3 6 3 1 # Bowel Movements 1 1 1 1 Result Diagram: 12/22/1652412/22/16524 Objective Remarks GENERAL: SKIN: Warm and dry. HEAD: Atraumatic. Normocephalic. EYES: Pupils equal and round. No scleral icterus. No injection or drainage. ENT: No nasal bleeding or discharge. Mucous membranes pink and moist. NECK: Trachea midline. No JVD. CARDIOVASCULAR: Regular rate and rhythm. RESPIRATORY: No accessory muscle use. Clear to auscultation. Breath sounds equal bilaterally. TRACHEOSTOMY IN PLACE GASTROINTESTINAL: Abdomen soft, non-tender, nondistended. Hepatic and splenic margins not palpable. MUSCULOSKELETAL: Extremities without clubbing, cyanosis, or edema. No obvious deformities. NEUROLOGICAL: Awake and alert. No obvious cranial nerve deficits. Motor grossly within normal limits. Five out of 5 muscle strength in the arms and legs. Normal speech. PSYCHIATRIC: Appropriate mood and affect; insight and judgment normal. Assessment and Plan Assessment and Plan ALERT NO SOB PLAN TRACH, REMOVED WELL TOLERATED Katie Wilson MD Dec 24, 2016 18:54
[2016-12-24] MEDS: CHLORHEXIDINE GLUCONATE 4% SOLN 120 ML BTL TOP SCH (21:00)
[2016-12-24] MEDS: MELATONIN 5 MG TAB PO SCH (22:13)
[2016-12-25] VITALS (8 sets, daily range): BP systolic 109–129; BP diastolic 62–69; PULSE 63–72; RESP 16–18; TEMP 98.3–99.1; O2SAT 97–99
[2016-12-25] MEDS: DILTIAZEM HCL 90 MG TAB PO SCH ×4 (00:10→17:28)
[2016-12-25] MEDS: cloNIDine HCL 0.1 MG TAB PO SCH ×3 (02:00→17:20)
[2016-12-25] MEDS: CHLORHEXIDINE GLUCONATE 2 % 1 PACK (2 CLOTHS) TOP SCH (02:56)
[2016-12-25] MEDS: CHLORHEXIDINE 0.12% (ORAL KIT) 15 ML CUP MT SCH ×2 (08:00→20:00)
[2016-12-25] MEDS: ARTIFICIAL TEARS OPTH SOLN 15 ML BTL EACH EYE SCH ×2 (08:37→08:38)
[2016-12-25] MEDS: SODIUM CHLORIDE 0.9% FLUSH 10 ML FLUSH IV FLUSH SCH ×3 (08:37→20:19)
[2016-12-25] MEDS: BACITRACIN TOP OINT 15 GM TUBE TOPICAL SCH ×2 (08:37→20:20)
[2016-12-25] MEDS: BENEPROTEIN POWDER 1 PACK G-TUBE SCH ×3 (09:00→17:28)
[2016-12-25] MEDS: levETIRAcetam 500 MG/5 ML UDC NG SCH ×2 (09:04→20:19)
[2016-12-25] MEDS: ASCORBIC ACID 500 MG TAB PO SCH ×2 (09:04→20:19)
[2016-12-25] MEDS: FAMOTIDINE 20 MG TAB PO SCH ×2 (09:04→20:19)
[2016-12-25] MEDS: LACTOBACILLUS ACIDOPHILUS TAB PO SCH ×3 (09:04→17:28)
[2016-12-25] MEDS: COLLAGENASE OINT 30 GM TUBE TOPICAL SCH (09:12)
--- NOTE | 2016-12-25 12:00 | HHI.PR ---
Subjective Remarks Follow-up visit subarachnoid hemorrhage, status post left frontotemporal parietal craniectomy for evacuation of subdural hematoma, duraplasty, Status post PEG & trach. Patient seen and examined laying in bed sleeping; awoke easily and participated fully in the examination. Pt noted he appreciated recent dietary changes. Pt stated he feels he is getting "more than enough food." Pt noted he has some decreased loss of feeling in his blacked finger tips and his blackened toes are reported to be "sore." Denied new issues. Pt denied fever, cough, NVD, throat pain, abdominal/chest pain, shortness of breath. Per RN, no new acute issues noted overnight or since start of shift. Objective Vitals Vital Signs Date Time Temp Pulse Resp B/P (MAP) Pulse Ox O2 Delivery O2 Flow Rate FiO2 12/25/16 08:43 98.3 72 16 118/69 (85) 99 12/25/16 04:42 98.8 63 18 109/62 (78) 98 12/25/16 01:31 98.4 65 18 115/67 (83) 97 12/24/16 22:13 98.1 70 18 117/62 (80) 99 12/24/16 18:07 99 21 12/24/16 16:10 99.7 79 16 106/57 (73) 99 12/24/16 12:36 98.9 63 16 106/53 (70) 100 I/O 12/24/16 12/24/16 12/24/16 12/25/16 12/25/16 12/25/16 07:00 15:00 23:00 07:00 15:00 23:00 Output Total 525 ml 200 ml Balance -525 ml -200 ml Output Urine Total 525 ml 200 ml # Voids 3 1 1 # Bowel Movements 1 1 1 Result Diagram: 12/22/16 0525 12/22/16 0525 Imaging Last Impressions Modified Barium Swallow 12/23/16 0000 Signed Impressions: Service Date/Time: Friday, December 23, 2016 09:11 - CONCLUSION: Negative for aspiration.. Remington Woodward MD FACR Chest X-Ray 12/04/16 8234 Signed Impressions: Service Date/Time: Sunday, December 04, 2016 18:55 - CONCLUSION: 1. Placement of left central line tip in superior vena cava. No pneumothorax. Mild basilar airspace disease. Small right effusion. Gurwinder Root MD Upper Extremity Ultrasound 12/04/16 Signed Impressions: Service Date/Time: Sunday, December 04, 2016 15:37 - CONCLUSION: 1. Positive for occlusive deep venous thrombosis in the right axillary and subclavian vein. Occlusive superficial thrombus in bilateral cephalic veins. Gurwinder Root MD Angiography 12/01/16 0000 Signed Impressions: Service Date/Time: November 14:02 - CONCLUSION: 1. Right side up on her hemorrhage with angiography of the right bronchial artery revealing no source of active hemorrhage. Empiric embolization was performed. Santos Crockett Jr., MD Chest CT 11/28/16 Signed Impressions: Service Date/Time: Tuesday, November 29, 2016 05:13 - CONCLUSION: 1. Patchy alveolar disease characteristic of edema or pneumonia. 2. Severe emphysema 3. Gastrojejunostomy tube looped in the stomach Harvey Morejon MD Chest/Thorax CTA 11/26/16 Signed Impressions: Service Date/Time: Saturday, November 26, 2016 20:18 - CONCLUSION: 1. Extensive filling defects within the right central bronchial tree characteristic of endobronchial hemorrhage. 2. Consolidating airspace disease in the right upper lobe and right lower lobe characteristic of hemorrhage and post obstructive lung consolidation. 3. Right bronchial artery is identified extending to the central right bronchial region 4. Advanced COPD. Nasir Amanda MD Abdomen X-Ray 11/19/16 06 Signed Impressions: Service Date/Time: Saturday, November 19, 2016 02:44 - CONCLUSION: Unchanged bowel gas pattern potentially relating to an ileus. Santos Crockett Jr., MD Transcranial Doppler Study Complete 10/20/16 06 Signed Impressions: Service Date/Time: October 07:54 - CONCLUSION: Slight interval elevation of flow velocity measurements and ratio on the left Yosvany Polk MD Liver Ultrasound 10/19/16 Signed Impressions: Service Date/Time: Wednesday, October 19, 2016 11:20 - CONCLUSION: 1. Sludge filled gallbladder with thickened wall. 2. Moderate size bilateral pleural effusions and mild upper abdominal ascites. Santos Vazquez MD Cerebral Arteriogram 10/19/16 Signed Impressions: Service Date/Time: Wednesday, October 19, 2016 12:47 - CONCLUSION: Uncomplicated cerebral arteriography with spasmolytic therapy as described in detail above. Yosvany Polk MD Head CT 10/17/16 0000 Signed Impressions: Service Date/Time: Monday, October 17, 2016 15:06 - CONCLUSION: Ventricles are slightly larger without ventriculostomy. Edema in the left hemisphere the brain herniating through the operative site. Remington Woodward MD FACR Infusion Non-thrombolysis 10/14/16 1103 Signed Impressions: Service Date/Time: Friday, October 14, 2016 10:21 - CONCLUSION: 1. Uncomplicated infusion for spasmolysis Harvey Morejon MD Neck CTA 10/07/16 0000 Signed Impressions: Service Date/Time: Friday, October 07, 2016 15:03 - CONCLUSION: 1. Mild carotid bulb atherosclerotic calcification bilaterally. However, no significant stenosis is present in either internal carotid artery. 2. Paranasal sinus mucoperiosteal thickening. 3. Please refer to brain CTA report for description of the intracranial findings. Yosvany Ramirez MD Head CTA 10/07/16 0000 Signed Impressions: Service Date/Time: Friday, October 07, 2016 15:03 - CONCLUSION: 1. 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 2. Large left subdural hematoma measuring 1.3 cm in depth with a significant, 1.6 cm left to right subfalcine shift. Joni Shelton MD Objective Remarks GENERAL: Pt encountered laying in bed, resting. NAD. SKIN: Warm and dry. Bandage noted at neck in covering trach site, triluminal catheter noted left side of neck. All toes evidenced some blackening at their base, two fingers (fourth finger on right and second on left) evidenced similar blackening. HEAD: Normocephalic. EYES: No scleral icterus. No injection or drainage. NECK: Supple, trachea midline. No lymphadenopathy. CARDIOVASCULAR: Regular rate and rhythm without murmurs, gallops, or rubs. RESPIRATORY: Breath sounds equal bilaterally. No accessory muscle use. GASTROINTESTINAL: Abdomen soft, non-tender, nondistended. Soft bowel sounds present all quadrant. Feeding tube noted. MUSCULOSKELETAL: No cyanosis, or edema. PSYCHIATRIC: Alert and oriented x3, pleasant/cooperative, no overt signs of depression/anxiety. Speech was soft with short sentences. Procedures 10/13 Four-vessel cerebral angiography with verapamil treatment of vasospasm Medications and IVs Current Medications Medications (Trade) Dose Ordered Sig/Adali Route Start Time Stop Time Status Last Admin Magnesium Sulfate 4 gm/Sodium Chloride 108 ml @ 108 mls/hr UNSCH PRN IV 10/07/16 18:30 (Heparin Inj) 5,000 units Q8HR SQ 10/14/16 22:00 Future Hold 11/13/16 21:20 Calcium Gluconate 1 gm/Sodium Chloride 110 ml @ 110 mls/hr UNSCH PRN IV 10/18/16 09:45 10/18/16 10:22 (NS Flush) 2 ml UNSCH PRN IV FLUSH 10/19/16 09:45 (NS Flush) 2 ml BID IV FLUSH 10/19/16 21:00 12/25/16 09:12 (Tears Naturale Opth Soln) 1 drop TID EACH EYE 10/19/16 13:00 12/23/16 18:00 (Albuterol Neb) 2.5 mg Q2HR NEB PRN INH 10/19/16 09:45 11/22/16 22:09 Miscellaneous Information 1 Q361D XX 10/19/16 09:45 (Chlorhexidine 2% Cloth) Taper DAILY@04 TOP 10/20/16 04:00 10/16/17 03:59 12/24/16 04:00 (Chlorhexidine 2% Cloth) 3 pack UNSCH PRN TOP 10/19/16 09:45 (Keppra Liq) 500 mg Q12HR NG 10/31/16 21:00 12/25/16 09:04 (Melatonin) 5 mg HS PO 11/01/16 21:00 12/24/16 22:13 (Cardizem) 90 mg Q6HR PO 11/02/16 12:00 12/25/16 05:45 (Zofran Inj) 4 mg Q6H PRN IV PUSH 11/18/16 01:45 (Baciguent Oint) 1 applic Q12HR TOPICAL 11/18/16 11:00 12/23/16 20:24 (Beneprotein Powder) 1 pack TID G-TUBE 11/19/16 09:00 12/25/16 09:00 (Peridex 0.12% Liq) 15 ml BID@08,20 MT 11/26/16 20:00 12/23/16 20:00 (Santyl Oint) 1 applic DAILY TOPICAL 11/30/16 12:00 12/25/16 09:12 (Tylenol) 650 mg Q4H PRN PO 11/30/16 13:15 12/20/16 14:32 (Racepinephrine 2.25% Neb) 0.5 ml Q4HR NEB PRN NEB 12/03/16 15:00 (Nitroglycerin 2% Oint) 2 inch Q6H PRN TOPICAL 12/04/16 09:15 (Catapres) 0.1 mg Q8H PO 12/04/16 10:00 12/24/16 02:05 (Vasotec Inj) 1.25 mg Q6H PRN IV PUSH 12/04/16 09:15 (NS Flush) DAILY IV FLUSH 12/04/16 18:00 12/23/16 09:00 (NS Flush) UNSCH PRN IV FLUSH 12/04/16 18:00 (Imodium Liq) 2 mg UNSCH PRN PO 12/14/16 10:45 (Lactinex) 1 tab TID PO 12/14/16 18:00 12/25/16 09:04 (Pepcid) 20 mg BID PO 12/16/16 21:00 12/25/16 09:04 (Ferrous Sulfate) 325 mg BID@ PO 12/22/16 12:00 12/24/16 18:02 (Vitamin C) 500 mg BID PO 12/22/16 09:00 12/25/16 09:04 (Hibiclens 4% Top Soln) 1 applic HS TOP 12/22/16 21:00 12/26/16 21:01 12/24/16 21:00 Urinary Catheter: No Date of Insertion: Dec 04, 2016 Line: Central Venous Catheter Side: Left Location: Internal, Jugular A/P Problem List: (1) Subarachnoid hemorrhage due to ruptured aneurysm ICD Code: I60.8 - Other nontraumatic subarachnoid hemorrhage (2) Subdural hematoma ICD Code: I62.00 - Nontraumatic subdural hemorrhage, unspecified (3) Intracranial aneurysm ICD Code: I67.1 - Cerebral aneurysm, nonruptured (4) Respiratory failure ICD Code: J96.90 - Respiratory failure, unspecified, unspecified whether with hypoxia or hypercapnia Status: Acute Assessment and Plan 56-year-old male presents with intracranial bleed, was transferred from [facility]. S/P left frontotemporal parietal craniotomy: Pt tolerating diet that was advanced yesterday. Still awaiting information (date/time) about bone flap surgery. Respiratory: Pt tolerating recent decannulation. Oxygen saturation noted to be 97-100 over past 24 hours. Hypotension: pt evidenced systolic blood pressure readings of 103, 105,106x2. Clonidine held and pressures improved. Will hold clonidine at this time. Monitor. If blood pressure improves will consider discontinuing Clonidine tomorrow. Status post left frontotemporal parietal craniectomy 10/08 for evacuation subdural hematoma/duraplasty Left subdural hematoma - 1.3 cm with 1.6 shift left to right Subarachnoid hemorrhage Alvarado and Rodriguez 5, Carroll grade 4 - left P-comm status post 4 coiling 10/08 Hypoxic-Ischemic Encephalopathy - Nimodipine completed 21 days. Initiated 10/13. - Levetiracetam 500 mg per tube q12h. - 10/13 and 10/14 and 10/17) 10/19 left MCA territory vasospasm, status post successful verapamil treatment by IR with 20 mg verapamil - 10/17 CT brain - less hemisphere edema with herniation through left craniotomy site, now improved. - Dr. Perry/neurosurgery. Plan to replace bone flap in the future - Echocardiogram 10/14/16 revealed EF 40-45%. Septal hypokinesis. Moderate MR. Severe pulmonary hypertension with pulmonary artery pressures estimated 61 mmHg Limited Echo 11/06: LVEF 60-65%, Trivial mitral and tricuspid regurgitation, No vegetations noted. - Continue diltiazem's 90 mg by mouth every 6 hours and furosemide 20 mg daily - neurologically stable and doing well, and continued PT and rehabilitation. - PT, OT, speech following. Patient will need helmet when out of bed to chair. Helmet at bedside - Patient activity should be increased to out of bed to chair with helmet. Respiratory failure, S/P tracheostomy - S/p Trach Dr. Sullivan/Dr. Collazo 11/01 #8 Jialey - CT angiogram chest/neck revealed right centrilobular bleeding likely source right bronchial artery. Repeat CT chest 11/29no visualization of active bleeding.- Resolved - 12/01 - embolization of right bronchial artery by IR- no further bleeding from tracheostomy - Redo trach 11/[address] Sullivan; down sized to uncuffed fenestrated 6 tracheostomy on 12/14 and now capped. - Albuterol/ipratropium aerosols every 6 hours with albuterol aerosols - Dr. Wilson plan is to downsize tube and probably considering tracheostomy removal - Tolerated tracheostomy capping. Has been decannulated. Tolerating room air. - Monitor Respiratory status Ileus- improving. Monitor Elevated transaminases Hyperammonemia Severe protein caloric malnutrition- continue with tube feeds as tolerated. - Currently on Glucerna 1.5 goal 60 cc an hour. Consult liquid natural gas plant operator to review formula. - free water per G tube 200mL per tube q6h. - Lansoprazole 30 mg by tube daily for GI prophylaxis will change this to Pepcid - Continue bowel regimen - Reglan DC 12/13- stools amount decreased and thicker in consistency- continue to monitor - Continue PEG feeding. s/p PEG 11/12/16 - speech following for swallowing progress - Tube feeds only at night, patient has regular trach during the daytime, will order ensure pudding - Dietitian consulted to reevaluate tube feeding rate. Right occlusive subclavian, axillary and bilateral superficial cephalic thrombus - limited Echo to evaluate vegetation-neg. ID following - Digital Ischemia with necrosis involving all toes and left 2nd finger and right ringer finger- stable, conservative management - Digits have demarcated, allow auto amputation. Cardizem PO currently and 90 mg every 6 hours (for digital ischemia, Raynaud's) - Continue bacitracin twice a day to affected areas - Central line for IV access. We'll need to be started on systemic anticoagulation at some point however with recent embolization for hemoptysis holding full anticoagulation at this time. Stage 2 sacral ulcer - ABD dressing with [employer]- staff nurse makes sure to keep area dry - Turn position every 2 hours - Out of bed to chair activity Course of hospitalization complications Acute hypoxic Respiratory failure secondary to mucous plugging- Resolved Possible healthcare associated pneumonia, Septic Shock- resolved. ARDS - resolved Noncardiogenic/neurogenic pulmonary edema- resolved. Massive Hemoptysis - resolved Aspiration pneumonitis - resolved Cerebral Salt Wasting/SIADH-resolved now hypernatremic - Creatinine currently within normal limits -> resolved. - Monitor urine output Septic and cardiogenic shock- resolved. LV dysfunction secondary to SAH - persistent, now resolved Elevated troponin- secondary to SAH, unlikely to be ACS. - resolved. Pulmonary hypertension s/p PEA arrest 11/28 after ETT dislodgement, hypoxic arrest DVT prop SCD, no chemoprophylaxis secondary to risk for bleeding Full Code Discussed with patient, nursing, and Dr. Guardado Discharge Planning Pending SSI. Placement will be in assisted facility or long-term care. CM following. Problem Qualifiers (1) Respiratory failure: Qualified Codes: J96.00 - Acute respiratory failure, unspecified whether with hypoxia or hypercapnia Bonifacio Schmidt Jr. Dec 25, 2016 12:00
[2016-12-25] MEDS: FERROUS SULFATE 325 MG (65 MG ELEMENTAL IRON) TAB PO SCH ×2 (12:02→17:27)
--- NOTE | 2016-12-25 12:58 | HHI.PR ---
Subjective Remarks TRACH REMOVED NO SOB Objective Vital Signs Date Time Temp Pulse Resp B/P (MAP) Pulse Ox O2 Delivery O2 Flow Rate FiO2 12/25/16 12:53 98.3 66 16 129/67 (87) 98 12/25/16 12:00 99 12/25/16 08:43 98.3 72 16 118/69 (85) 99 12/25/16 04:42 98.8 63 18 109/62 (78) 98 12/25/16 01:31 98.4 65 18 115/67 (83) 97 12/24/16 22:13 98.1 70 18 117/62 (80) 99 12/24/16 18:07 99 21 12/24/16 16:10 99.7 79 16 106/57 (73) 99 I/O 12/24/16 12/24/16 12/24/16 12/25/16 12/25/16 12/25/16 07:00 15:00 23:00 07:00 15:00 23:00 Output Total 525 ml 400 ml Balance -525 ml -400 ml Output Urine Total 525 ml 400 ml # Voids 3 1 1 # Bowel Movements 1 1 1 Result Diagram: 12/22/1652412/22/16524 Objective Remarks GENERAL: SKIN: Warm and dry. HEAD: Atraumatic. Normocephalic. EYES: Pupils equal and round. No scleral icterus. No injection or drainage. ENT: No nasal bleeding or discharge. Mucous membranes pink and moist. NECK: Trachea midline. No JVD. CARDIOVASCULAR: Regular rate and rhythm. RESPIRATORY: No accessory muscle use. Clear to auscultation. Breath sounds equal bilaterally. TRACHEOSTOMY IN PLACE GASTROINTESTINAL: Abdomen soft, non-tender, nondistended. Hepatic and splenic margins not palpable. MUSCULOSKELETAL: Extremities without clubbing, cyanosis, or edema. No obvious deformities. NEUROLOGICAL: Awake and alert. No obvious cranial nerve deficits. Motor grossly within normal limits. Five out of 5 muscle strength in the arms and legs. Normal speech. PSYCHIATRIC: Appropriate mood and affect; insight and judgment normal. Assessment and Plan Assessment and Plan ALERT NO SOB PLAN TRACH, REMOVED WELL TOLERATED Katie Wilson MD Dec 25, 2016 12:58
[2016-12-25] MEDS: MELATONIN 5 MG TAB PO SCH (20:19)
[2016-12-25] MEDS: CHLORHEXIDINE GLUCONATE 4% SOLN 120 ML BTL TOP SCH (20:20)
[2016-12-26] MEDS: DILTIAZEM HCL 90 MG TAB PO SCH ×4 (00:11→18:02)
[2016-12-26 01:20] VITALS: BP 115/65; PULSE 72; RESP 18; TEMP 98.4; O2SAT 97
[2016-12-26] MEDS: cloNIDine HCL 0.1 MG TAB PO SCH ×3 (02:00→18:02)
[2016-12-26] MEDS: CHLORHEXIDINE GLUCONATE 2 % 1 PACK (2 CLOTHS) TOP SCH (04:00)
[2016-12-26 05:32] VITALS: BP 108/70; PULSE 76; RESP 18; TEMP 98.3; O2SAT 98
[2016-12-26] MEDS: CHLORHEXIDINE 0.12% (ORAL KIT) 15 ML CUP MT SCH ×2 (08:00→22:01)
[2016-12-26 08:48] VITALS: BP 123/62; PULSE 67; RESP 18; TEMP 98.2; O2SAT 98
[2016-12-26] MEDS: SODIUM CHLORIDE 0.9% FLUSH 10 ML FLUSH IV FLUSH SCH ×3 (09:00→22:03)
[2016-12-26] MEDS: ARTIFICIAL TEARS OPTH SOLN 15 ML BTL EACH EYE SCH ×3 (09:00→18:00)
[2016-12-26] MEDS: levETIRAcetam 500 MG/5 ML UDC NG SCH ×2 (09:07→22:02)
[2016-12-26] MEDS: FAMOTIDINE 20 MG TAB PO SCH ×2 (09:07→22:03)
[2016-12-26] MEDS: ASCORBIC ACID 500 MG TAB PO SCH ×2 (09:08→22:03)
[2016-12-26] MEDS: LACTOBACILLUS ACIDOPHILUS TAB PO SCH ×3 (09:08→18:03)
[2016-12-26] MEDS: BACITRACIN TOP OINT 15 GM TUBE TOPICAL SCH ×2 (09:09→22:01)
[2016-12-26] MEDS: COLLAGENASE OINT 30 GM TUBE TOPICAL SCH (09:09)
[2016-12-26] MEDS: BENEPROTEIN POWDER 1 PACK G-TUBE SCH ×3 (09:11→18:03)
--- NOTE | 2016-12-26 09:33 | HHI.PR ---
Subjective Remarks Appears in nad. No n/v/d/c. Denies chest antonio or sob. No fever or chills. Satting well. No chest pain or sob. No cough. Plan for bone flap tomorrow. Objective Vitals Vital Signs Date Time Temp Pulse Resp B/P (MAP) Pulse Ox O2 Delivery O2 Flow Rate FiO2 12/26/16 08:48 98.2 67 18 123/62 (82) 98 12/26/16 05:32 98.3 76 18 108/70 (83) 98 12/26/16 01:20 98.4 72 18 115/65 (82) 97 12/25/16 21:00 99.1 72 18 125/69 (87) 98 12/25/16 18:24 98 12/25/16 16:23 98.6 64 16 125/67 (86) 98 12/25/16 12:53 98.3 66 16 129/67 (87) 98 12/25/16 12:00 99 I/O 12/25/16 12/25/16 12/25/16 12/26/16 12/26/16 12/26/16 07:00 15:00 23:00 07:00 15:00 23:00 Intake Total 200 ml Output Total 525 ml 400 ml 800 ml Balance -525 ml -400 ml -600 ml Intake Oral 200 ml Output Urine Total 525 ml 400 ml 800 ml # Voids 1 # Bowel Movements 1 3 Result Diagram: 12/22/16 0525 12/22/16 0525 Imaging Last Impressions Modified Barium Swallow 12/23/16 0000 Signed Impressions: Service Date/Time: Friday, December 23, 2016 09:11 - CONCLUSION: Negative for aspiration.. Remington Woodward MD FACR Chest X-Ray 12/04/16 1753 Signed Impressions: Service Date/Time: Sunday, December 04, 2016 18:55 - CONCLUSION: 1. Placement of left central line tip in superior vena cava. No pneumothorax. Mild basilar airspace disease. Small right effusion. Gurwinder Root MD Upper Extremity Ultrasound 12/04/16 0000 Signed Impressions: Service Date/Time: Sunday, December 04, 2016 15:37 - CONCLUSION: 1. Positive for occlusive deep venous thrombosis in the right axillary and subclavian vein. Occlusive superficial thrombus in bilateral cephalic veins. Gurwinder Root MD Angiography 12/01/16 Signed Impressions: Service Date/Time: November 14:02 - CONCLUSION: 1. Right side up on her hemorrhage with angiography of the right bronchial artery revealing no source of active hemorrhage. Empiric embolization was performed. Santos Crockett Jr., MD Chest CT 11/28/16 Signed Impressions: Service Date/Time: Tuesday, November 29, 2016 05:13 - CONCLUSION: 1. Patchy alveolar disease characteristic of edema or pneumonia. 2. Severe emphysema 3. Gastrojejunostomy tube looped in the stomach Harvey Morejon MD Chest/Thorax CTA 11/26/16 Signed Impressions: Service Date/Time: Saturday, November 26, 2016 20:18 - CONCLUSION: 1. Extensive filling defects within the right central bronchial tree characteristic of endobronchial hemorrhage. 2. Consolidating airspace disease in the right upper lobe and right lower lobe characteristic of hemorrhage and post obstructive lung consolidation. 3. Right bronchial artery is identified extending to the central right bronchial region 4. Advanced COPD. Nasir Amanda MD Abdomen X-Ray 11/19/16599 Signed Impressions: Service Date/Time: Saturday, November 19, 2016 02:44 - CONCLUSION: Unchanged bowel gas pattern potentially relating to an ileus. Santos Crockett Jr., MD Transcranial Doppler Study Complete 10/20/16599 Signed Impressions: Service Date/Time: October 07:54 - CONCLUSION: Slight interval elevation of flow velocity measurements and ratio on the left Yosvany Polk MD Liver Ultrasound 10/19/16 Signed Impressions: Service Date/Time: Wednesday, October 19, 2016 11:20 - CONCLUSION: 1. Sludge filled gallbladder with thickened wall. 2. Moderate size bilateral pleural effusions and mild upper abdominal ascites. Santos Vazquez MD Cerebral Arteriogram 10/19/16 Signed Impressions: Service Date/Time: Wednesday, October 19, 2016 12:47 - CONCLUSION: Uncomplicated cerebral arteriography with spasmolytic therapy as described in detail above. Yosvany Polk MD Head CT 10/17/16 Signed Impressions: Service Date/Time: Monday, October 17, 2016 15:06 - CONCLUSION: Ventricles are slightly larger without ventriculostomy. Edema in the left hemisphere the brain herniating through the operative site. Remington Woodward MD FACR Infusion Non-thrombolysis 10/14/16 1103 Signed Impressions: Service Date/Time: Friday, October 14, 2016 10:21 - CONCLUSION: 1. Uncomplicated infusion for spasmolysis Harvey Morejon MD Neck CTA 10/07/16 0000 Signed Impressions: Service Date/Time: Friday, October 07, 2016 15:03 - CONCLUSION: 1. Mild carotid bulb atherosclerotic calcification bilaterally. However, no significant stenosis is present in either internal carotid artery. 2. Paranasal sinus mucoperiosteal thickening. 3. Please refer to brain CTA report for description of the intracranial findings. Yosvany Ramirez MD Head CTA 10/07/16 0000 Signed Impressions: Service Date/Time: Friday, October 07, 2016 15:03 - CONCLUSION: 1. 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 2. Large left subdural hematoma measuring 1.3 cm in depth with a significant, 1.6 cm left to right subfalcine shift. Joni Shelton MD Objective Remarks GENERAL: Awake and alert, oriented, appears in nad. SKIN: All toes with digital ischemia, left 2nd finger and right ringer finger with distal digit ischemia. Stage 1-2 decubitus ulcer NECK: Bandage noted at neck in covering trach site c/d/i. CARDIOVASCULAR: Regular rate and rhythm. RESPIRATORY: No accessory muscle use. Clear to auscultation. Breath sounds equal bilaterally. GASTROINTESTINAL: Abdomen soft, non-tender, nondistended. Soft PEG in place, site c/d/i MUSCULOSKELETAL: Extremities without clubbing, cyanosis, or edema. No obvious deformities. Bilateral radial and DP,PT ++ NEUROLOGICAL: Alert and oriented x3, pleasant. Speech IS soft with short sentences. Procedures 10/13 Four-vessel cerebral angiography with verapamil treatment of vasospasm Date of Insertion: Dec 04, 2016 Line: Central Venous Catheter Side: Left Location: Internal, Jugular A/P Problem List: (1) Subarachnoid hemorrhage due to ruptured aneurysm ICD Code: I60.8 - Other nontraumatic subarachnoid hemorrhage (2) Subdural hematoma ICD Code: I62.00 - Nontraumatic subdural hemorrhage, unspecified (3) Intracranial aneurysm ICD Code: I67.1 - Cerebral aneurysm, nonruptured (4) Respiratory failure ICD Code: J96.90 - Respiratory failure, unspecified, unspecified whether with hypoxia or hypercapnia Status: Acute Assessment and Plan 56-year-old male presents with intracranial bleed, was transferred from [facility]. S/P left frontotemporal parietal craniotomy: Pt tolerating diet that was advanced yesterday. Still awaiting information (date/time) about bone flap surgery. Respiratory: Pt tolerating recent decannulation. Oxygen saturation noted to be 97-100 over past 24 hours. Hypotension: pt evidenced systolic blood pressure readings of 103, 105,106x2. Clonidine held and pressures improved. Will hold clonidine at this time. Monitor. If blood pressure improves will consider discontinuing Clonidine tomorrow. Status post left frontotemporal parietal craniectomy 10/08 for evacuation subdural hematoma/duraplasty. Plan for bone flap on 12/27/[address] Perry. Left subdural hematoma - 1.3 cm with 1.6 shift left to right Subarachnoid hemorrhage Alvarado and Rodriguez 5, Carroll grade 4 - left P-comm status post 4 coiling 10/08 Hypoxic-Ischemic Encephalopathy - Nimodipine completed 21 days. Initiated 10/13. - Levetiracetam 500 mg per tube q12h. - 10/13 and 10/14 and 10/17) 10/19 left MCA territory vasospasm, status post successful verapamil treatment by IR with 20 mg verapamil - 10/17 CT brain - less hemisphere edema with herniation through left craniotomy site, now improved. - Dr. Perry/neurosurgery. Plan to replace bone flap in the future - Echocardiogram 10/14/16 revealed EF 40-45%. Septal hypokinesis. Moderate MR. Severe pulmonary hypertension with pulmonary artery pressures estimated 61 mmHg Limited Echo 11/06: LVEF 60-65%, Trivial mitral and tricuspid regurgitation, No vegetations noted. - Continue diltiazem's 90 mg by mouth every 6 hours and furosemide 20 mg daily - neurologically stable and doing well, and continued PT and rehabilitation. - PT, OT, speech following. Patient will need helmet when out of bed to chair. Helmet at bedside - Patient activity should be increased to out of bed to chair with helmet. Respiratory failure, S/P tracheostomy - S/p Trach Dr. Sullivan/Dr. Collazo 11/01 #8 [place] - CT angiogram chest/neck revealed right centrilobular bleeding likely source right bronchial artery. Repeat CT chest 11/29no visualization of active bleeding.- Resolved - 12/01 - embolization of right bronchial artery by IR- no further bleeding from tracheostomy - Redo trach 11/[address] Sullivan; down sized to uncuffed fenestrated 6 tracheostomy on 12/14 and now capped. - Albuterol/ipratropium aerosols every 6 hours with albuterol aerosols - Dr. Wilson plan is to downsize tube and probably considering tracheostomy removal - Tolerated tracheostomy capping. Has been decannulated. Tolerating room air. - Monitor Respiratory status Ileus- improving. Monitor Elevated transaminases Hyperammonemia Severe protein caloric malnutrition- continue with tube feeds as tolerated. - Currently on Glucerna 1.5 goal 60 cc an hour. Consult manager cardiac cath to review formula. - free water per G tube 200mL per tube q6h. - Lansoprazole 30 mg by tube daily for GI prophylaxis will change this to Pepcid - Continue bowel regimen - Reglan DC 12/13- stools amount decreased and thicker in consistency- continue to monitor - Continue PEG feeding. s/p PEG 11/12/16 - speech following for swallowing progress - Tube feeds only at night, patient has regular trach during the daytime, will order ensure pudding - Dietitian consulted to reevaluate tube feeding rate. Right occlusive subclavian, axillary and bilateral superficial cephalic thrombus - limited Echo to evaluate vegetation-neg. ID following - Digital Ischemia with necrosis involving all toes and left 2nd finger and right ringer finger- stable, conservative management - Digits have demarcated, allow auto amputation. Cardizem PO currently and 90 mg every 6 hours (for digital ischemia, Raynaud's) - Continue bacitracin twice a day to affected areas - Central line for IV access. We'll need to be started on systemic anticoagulation at some point however with recent embolization for hemoptysis holding full anticoagulation at this time. Stage 2 sacral ulcer - ABD dressing with [employer]- staff nurse makes sure to keep area dry - Turn position every 2 hours - Out of bed to chair activity Course of hospitalization complications Acute hypoxic Respiratory failure secondary to mucous plugging- Resolved Possible healthcare associated pneumonia, Septic Shock- resolved. ARDS - resolved Noncardiogenic/neurogenic pulmonary edema- resolved. Massive Hemoptysis - resolved Aspiration pneumonitis - resolved Cerebral Salt Wasting/SIADH-resolved now hypernatremic - Creatinine currently within normal limits -> resolved. - Monitor urine output Septic and cardiogenic shock- resolved. LV dysfunction secondary to SAH - persistent, now resolved Elevated troponin- secondary to SAH, unlikely to be ACS. - resolved. Pulmonary hypertension s/p PEA arrest 11/28 after ETT dislodgement, hypoxic arrest DVT prop SCD, no chemoprophylaxis secondary to risk for bleeding Full Code Discussed with patient, nurse, Angie Ferraro and Dr Perry from neurosurgery Discharge Planning Pending SSI. Placement will be in jail facility or long-term care. CM following. PLAN FOR BONE FLAP 12/1416. DISCUSSED WITH NEUROSURGERY. Cleared medically for surgery tomorrow, preop labs Problem Qualifiers (1) Respiratory failure: Qualified Codes: J96.00 - Acute respiratory failure, unspecified whether with hypoxia or hypercapnia Nancy Guardado MD Dec 26, 2016 09:33
[2016-12-26 12:15] VITALS: BP 125/66; PULSE 68; RESP 18; TEMP 98; O2SAT 98
[2016-12-26] MEDS: FERROUS SULFATE 325 MG (65 MG ELEMENTAL IRON) TAB PO SCH ×2 (13:39→18:03)
--- NOTE | 2016-12-26 13:59 | HHI.NSPN ---
(Malinda Hines) Note Status Status: Progress Note (Malinda Hines) Interval History Interval History This is a 56-year-old male brought to the emergency room as an emergency transfer from another institution with history of intracranial bleed. He was transferred from [facility] and [facility]. Apparently the patient said that patient earlier this morning was coming down the stairs when he started feeling some left-sided weakness and numbness. He called 911 and by the time EMS arrived they detected severe neurological deficits and called a stroke alert. No seizure activity reported. No tongue biting. No incontinence of stool or urine. Patient was taken to [facility]. Apparently he was not able to move his right side . When patient arrived his mental status started to decline and he was intubated emergently in the ER for airway protection. A CT scan of the head showed extensive subarachnoid bleed. In addition he had a sizable subdural hematoma. He was brought emergently on the ventilator. He was on a propofol drip and well sedated. GCS was 3. He was on a Cardene drip and blood pressure was in the 120s. Neurosurgical consultation was requested 10/08. POD #1 Open eyes and follows commands 10/12. Doing very well. Neurologically stable. Patient is in restraints secondary to pulling out his Maldonado multiple times. 10/13. Much more lethargic, difficult to speak with new aphasia 10/14. Improved after angiography. Today he developed new onset of aphasia and right hemiparesis 10/17. Intubated and sedated. Lung infiltrates dense bilaterally, reflected in shunting and problems with oxygenation. 10/18: underwent endovascular verapamil infusion to left MCA vasospasm yesterday. TCD today pending. left flap pak today. Intubated and sedated. continues to be on multiple pressors. on 3% NS. 10/19: currently unstable for travel for repeat CT Head this am. no changes with neuro checks, remains intubated, sedated. pupils equal. continues on multiple pressors support 10/20: intubated and mildly sedated. remains on multiple pressors. pneumonia worsening. TCD this am reports slight increase in flow velocity to left, he underwent cerebral angiography yesterday with endovascular verapamil infusion right ICA. 10/21: intubated, sedated on fentanyl and versed. On Nimbex. 10/25: off Nimbex. Mildly opening eyes today. 10/26: opening eyes more today, ?focusing 10/27: intubated, minimal eye opening. not following commands. 10/28: appears more awake, following commands, focusing and tracked. shook head no when asked if doing ok. 10/31: remains intubated, tracking more today, not following with extremities 11/01: nursing reports intermittently follows commands to upper extremities. for tracheostomy today. 11/02: s/p tracheostomy, smiling today, following commands. 11/03: smiling and nodding appropriately. PT at bedside. 11/04: mouthing some words today, no acute events overnight 11/07: doing well, left craniectomy site well decompressed. febrile, ID consulted. 11/08: no changes to neuro examination, low grade fevers again this morning 12/22: reconsulted for evaluation for cranioplasty 12/26: for left cranioplasty tomorrow morning. no new complaints, dw Dr. Guardado , medically cleared for surgery. (Malinda Hines) Labs, Micro, & Vital Signs Results Date Time Temp Pulse Resp B/P (MAP) Pulse Ox O2 Delivery O2 Flow Rate FiO2 12/26/16 12:15 98.0 68 18 125/66 (85) 98 12/26/16 08:48 98.2 67 18 123/62 (82) 98 12/26/16 05:32 98.3 76 18 108/70 (83) 98 12/26/16 01:20 98.4 72 18 115/65 (82) 97 12/25/16 21:00 99.1 72 18 125/69 (87) 98 12/25/16 18:24 98 12/25/16 16:23 98.6 64 16 125/67 (86) 98 12/27/16 07:00 Output Total 150 ml Balance -150 ml Constitutional Vital Signs Date Time Temp Pulse Resp B/P (MAP) Pulse Ox O2 Delivery O2 Flow Rate FiO2 12/26/16 12:15 98.0 68 18 125/66 (85) 98 12/26/16 08:48 98.2 67 18 123/62 (82) 98 12/26/16 05:32 98.3 76 18 108/70 (83) 98 12/26/16 01:20 98.4 72 18 115/65 (82) 97 12/25/16 21:00 99.1 72 18 125/69 (87) 98 12/25/16 18:24 98 12/25/16 16:23 98.6 64 16 125/67 (86) 98 12/27/16 07:00 Output Total 150 ml Balance -150 ml (Malinda Hines) Physical Exam Left flap well decompressed alert, smiling, soft speech, talks few words. CN: pupils equal, facial motor symmetric Motor: moves extremities to command (Malinda Hines) Medications Current Medications Current Medications Medications (Trade) Dose Ordered Sig/Adali Route PRN Reason Start Time Stop Time Status Last Admin Dose Admin Magnesium Sulfate 4 gm/Sodium Chloride 108 ml @ 108 mls/hr UNSCH PRN IV MAGNESIUM LESS THAN 2 10/07/16 18:30 Heparin Sodium (Porcine) (Heparin Inj) 5,000 units Q8HR SQ 10/14/16 22:00 Future Hold 11/13/16 21:20 Calcium Gluconate 1 gm/Sodium Chloride 110 ml @ 110 mls/hr UNSCH PRN IV For Protein Corrected Calcium 10/18/16 09:45 10/18/16 10:22 Sodium Chloride (NS Flush) 2 ml UNSCH PRN IV FLUSH FLUSH AFTER USING IV ACCESS 10/19/16 09:45 Sodium Chloride (NS Flush) 2 ml BID IV FLUSH 10/19/16 21:00 12/25/16 20:19 Artificial Tears (Tears Naturale Opth Soln) 1 drop TID EACH EYE 10/19/16 13:00 12/23/16 18:00 Albuterol Sulfate (Albuterol Neb) 2.5 mg Q2HR NEB PRN INH SOB/WHEEZING 10/19/16 09:45 11/22/16 22:09 Miscellaneous Information 1 Q361D XX 10/19/16 09:45 Chlorhexidine Gluconate (Chlorhexidine 2% Cloth) Taper DAILY@04 TOP 10/20/16 04:00 10/16/17 03:59 12/24/16 04:00 Chlorhexidine Gluconate (Chlorhexidine 2% Cloth) 3 pack UNSCH PRN TOP HYGIENIC CARE 10/19/16 09:45 Levetriacetam (Keppra Liq) 500 mg Q12HR NG 10/31/16 21:00 12/26/16 09:07 Melatonin (Melatonin) 5 mg HS PO 11/01/16 21:00 12/25/16 20:19 Diltiazem HCl (Cardizem) 90 mg Q6HR PO 11/02/16 12:00 12/26/16 13:39 Ondansetron HCl (Zofran Inj) 4 mg Q6H PRN IV PUSH nausea 11/18/16 01:45 Bacitracin (Baciguent Oint) 1 applic Q12HR TOPICAL 11/18/16 11:00 12/26/16 09:09 Protein (Beneprotein Powder) 1 pack TID G-TUBE 11/19/16 09:00 12/26/16 09:11 Chlorhexidine Gluconate (Peridex 0.12% Liq) 15 ml BID@08,20 MT 11/26/16 20:00 12/23/16 20:00 Collagenase (Santyl Oint) 1 applic DAILY TOPICAL 11/30/16 12:00 12/26/16 09:09 Acetaminophen (Tylenol) 650 mg Q4H PRN PO PAIN OR TEMP >100.4 11/30/16 13:15 12/20/16 14:32 Racepinephrine (Racepinephrine 2.25% Neb) 0.5 ml Q4HR NEB PRN NEB hemoptysis/stridor 12/03/16 15:00 Nitroglycerin (Nitroglycerin 2% Oint) 2 inch Q6H PRN TOPICAL SBP>160, DBP>90 12/04/16 09:15 Clonidine (Catapres) 0.1 mg Q8H PO 12/04/16 10:00 12/26/16 09:07 Enalaprilat (Vasotec Inj) 1.25 mg Q6H PRN IV PUSH SBP>160, DBP>90 12/04/16 09:15 Sodium Chloride (NS Flush) DAILY IV FLUSH 12/04/16 18:00 12/26/16 09:08 Sodium Chloride (NS Flush) UNSCH PRN IV FLUSH SEE PROTOCOL 12/04/16 18:00 Loperamide HCl (Imodium Liq) 2 mg UNSCH PRN PO DIARRHEA 12/14/16 10:45 Lactobacillus Acidophilus (Lactinex) 1 tab TID PO 12/14/16 18:00 12/26/16 13:39 Famotidine (Pepcid) 20 mg BID PO 12/16/16 21:00 12/26/16 09:07 Ferrous Sulfate (Ferrous Sulfate) 325 mg BID@,17 PO 12/22/16 12:00 12/26/16 13:39 Ascorbic Acid (Vitamin C) 500 mg BID PO 12/22/16 09:00 12/26/16 09:08 Chlorhexidine Gluconate (Hibiclens 4% Top Soln) 1 applic HS TOP 12/22/16 21:00 12/26/16 21:01 12/25/16 20:20 Cefazolin Sodium/ Dextrose 50 ml @ 150 mls/hr ONCE ONCE IV 12/27/16 06:00 12/27/16 06:19 (Malinda Hines) Medical Decision Making MDM Remarks 56 y/o male with subarachnoid hemorrhage, status post coiling posterior communicating artery aneurysm. s/p left decompressive craniectomy. Left craniectomy site now well decompressed. (Malinda Hines) Plan Plan Remarks to OR tomorrow for left cranioplasty, hold sq heparin, SCDs and TEDs for dvt prophylaxis cont Hibiclens bath (Malinda Hines) Attending Statement We have discussed the details including the [id number] details of the surgical procedure, its indications, alternatives, risks, and potential complications. Risks and potential complications include, but are not limited to, infection, blood loss, CSF leak, partial or complete loss of sight in one or both eyes, paresis, paralysis, permanent pain or difficulty swallowing, loss of bowel or bladder function, complications from anesthesia, blood clot, stroke , myocardial infarction, or even . The exam, history, and the medical decision-making described in the above note were completed with the assistance of the mid-level provider. I reviewed and agree with the findings presented. I attest that I had a [id number] encounter with the patient on the same day, and personally performed and documented my assessment and findings in the medical record. (George Perry MD) Malinda Hines Dec 26, 2016 13:59 George Perry MD Dec 27, 2016 16:46
[2016-12-26] MEDS ORDERED: SODIUM CHLORID 0.9% 500 ML IV PRN (15:00)
[2016-12-26] MEDS ORDERED: INSULIN HUMAN REGULAR 1,000 UNITS/10 ML VIAL SQ PRN (15:00)
[2016-12-26] MEDS ORDERED: POVIDONE IODINE 5% (ANTISEPSIS KIT) 4 APPLICATIONS EACH NARE PRN (15:00)
[2016-12-26] MEDS ORDERED: CHLORHEXIDINE GLUCONATE 2 % 1 PACK (2 CLOTHS) TOPICAL PRN (15:00)
[2016-12-26] MEDS ORDERED: METOPROLOL TARTRATE 25 MG TAB PO PRN (15:00)
[2016-12-26] MEDS ORDERED: LACTATED RINGER'S 1000 ML IV PRN (15:00)
[2016-12-26 16:51] VITALS: BP 113/67; PULSE 81; RESP 18; TEMP 98.1; O2SAT 98
--- NOTE | 2016-12-26 18:19 | HHI.PR ---
Subjective Remarks TRACH REMOVED NO SOB Objective Vital Signs Date Time Temp Pulse Resp B/P (MAP) Pulse Ox O2 Delivery O2 Flow Rate FiO2 12/26/16 16:51 98.1 81 18 113/67 (82) 98 12/26/16 12:15 98.0 68 18 125/66 (85) 98 12/26/16 08:48 98.2 67 18 123/62 (82) 98 12/26/16 05:32 98.3 76 18 108/70 (83) 98 12/26/16 01:20 98.4 72 18 115/65 (82) 97 12/25/16 21:00 99.1 72 18 125/69 (87) 98 12/25/16 18:24 98 I/O 12/25/16 12/25/16 12/25/16 12/26/16 12/26/16 12/26/16 07:00 15:00 23:00 07:00 15:00 23:00 Intake Total 200 ml Output Total 525 ml 400 ml 800 ml 400 ml 175 ml Balance -525 ml -400 ml -600 ml -400 ml -175 ml Intake Oral 200 ml Output Urine Total 525 ml 400 ml 800 ml 400 ml 175 ml # Voids 1 # Bowel Movements 1 3 Result Diagram: 12/22/1652412/22/16524 Objective Remarks GENERAL: SKIN: Warm and dry. HEAD: Atraumatic. Normocephalic. EYES: Pupils equal and round. No scleral icterus. No injection or drainage. ENT: No nasal bleeding or discharge. Mucous membranes pink and moist. NECK: Trachea midline. No JVD. CARDIOVASCULAR: Regular rate and rhythm. RESPIRATORY: No accessory muscle use. Clear to auscultation. Breath sounds equal bilaterally. TRACHEOSTOMY IN PLACE GASTROINTESTINAL: Abdomen soft, non-tender, nondistended. Hepatic and splenic margins not palpable. MUSCULOSKELETAL: Extremities without clubbing, cyanosis, or edema. No obvious deformities. NEUROLOGICAL: Awake and alert. No obvious cranial nerve deficits. Motor grossly within normal limits. Five out of 5 muscle strength in the arms and legs. Normal speech. PSYCHIATRIC: Appropriate mood and affect; insight and judgment normal. Assessment and Plan Assessment and Plan ALERT NO SOB PLAN TRACH, REMOVED WELL TOLERATED FOR SURGERY AM(CRANIOPLASTY) Katie Wilson MD Dec 26, 2016 18:19
[2016-12-26 20:00] VITALS: BP 119/60; PULSE 75; RESP 17; TEMP 98.4; O2SAT 100
[2016-12-26] MEDS: CHLORHEXIDINE GLUCONATE 4% SOLN 120 ML BTL TOP SCH (21:00)
[2016-12-26] MEDS: MELATONIN 5 MG TAB PO SCH (22:03)
--- NOTE | 2016-12-26 22:25 | PD.CONS ---
History of Present Illness Service Podiatry Consult Requested By Reason for Consult Black toes Primary Care Physician No Primary Care Physician Diagnoses: History of Present Illness Patient seen and examined. Records reviewed. Patient has apparently been having gradual necrosis of distal digits since having aneurysm and subsequent complications. Podiatry consulted to assess. He has been on pressors. Past Family Social History Allergies: Coded Allergies: No Known Allergies (Unverified , 05/06/16) Past Medical History HTN Active Ordered Medications Current Medications Medications (Trade) Dose Ordered Sig/Adali Route Start Time Stop Time Status Last Admin Magnesium Sulfate 4 gm/Sodium Chloride 108 ml @ 108 mls/hr UNSCH PRN IV 10/07/16 18:30 (Heparin Inj) 5,000 units Q8HR SQ 10/14/16 22:00 Future Hold 11/13/16 21:20 Calcium Gluconate 1 gm/Sodium Chloride 110 ml @ 110 mls/hr UNSCH PRN IV 10/18/16 09:45 10/18/16 10:22 (NS Flush) 2 ml UNSCH PRN IV FLUSH 10/19/16 09:45 (NS Flush) 2 ml BID IV FLUSH 10/19/16 21:00 12/26/16 22:03 (Tears Naturale Opth Soln) 1 drop TID EACH EYE 10/19/16 13:00 12/23/16 18:00 (Albuterol Neb) 2.5 mg Q2HR NEB PRN INH 10/19/16 09:45 11/22/16 22:09 Miscellaneous Information 1 Q361D XX 10/19/16 09:45 (Chlorhexidine 2% Cloth) Taper DAILY@04 TOP 10/20/16 04:00 10/16/17 03:59 12/24/16 04:00 (Chlorhexidine 2% Cloth) 3 pack UNSCH PRN TOP 10/19/16 09:45 (Keppra Liq) 500 mg Q12HR NG 10/31/16 21:00 12/26/16 22:02 (Melatonin) 5 mg HS PO 11/01/16 21:00 12/26/16 22:03 (Cardizem) 90 mg Q6HR PO 11/02/16 12:00 12/26/16 18:02 (Zofran Inj) 4 mg Q6H PRN IV PUSH 11/18/16 01:45 (Baciguent Oint) 1 applic Q12HR TOPICAL 11/18/16 11:00 12/26/16 22:01 (Beneprotein Powder) 1 pack TID G-TUBE 11/19/16 09:00 12/26/16 18:03 (Peridex 0.12% Liq) 15 ml BID@08,20 MT 11/26/16 20:00 12/26/16 22:01 (Santyl Oint) 1 applic DAILY TOPICAL 11/30/16 12:00 12/26/16 09:09 (Tylenol) 650 mg Q4H PRN PO 11/30/16 13:15 12/20/16 14:32 (Racepinephrine 2.25% Neb) 0.5 ml Q4HR NEB PRN NEB 12/03/16 15:00 (Nitroglycerin 2% Oint) 2 inch Q6H PRN TOPICAL 12/04/16 09:15 (Catapres) 0.1 mg Q8H PO 12/04/16 10:00 12/26/16 18:02 (Vasotec Inj) 1.25 mg Q6H PRN IV PUSH 12/04/16 09:15 (NS Flush) DAILY IV FLUSH 12/04/16 18:00 12/26/16 09:08 (NS Flush) UNSCH PRN IV FLUSH 12/04/16 18:00 (Imodium Liq) 2 mg UNSCH PRN PO 12/14/16 10:45 (Lactinex) 1 tab TID PO 12/14/16 18:00 12/26/16 18:03 (Pepcid) 20 mg BID PO 12/16/16 21:00 12/26/16 22:03 (Ferrous Sulfate) 325 mg BID@17 PO 12/22/16 12:00 12/26/16 18:03 (Vitamin C) 500 mg BID PO 12/22/16 09:00 12/26/16 22:03 Cefazolin Sodium/ Dextrose 50 ml @ 150 mls/hr ONCE ONCE IV 12/27/16 06:00 12/27/16 06:19 Lactated Ringer's 1,000 ml @ 30 mls/hr Q24H PRN IV 12/26/16 15:00 12/29/16 14:59 Sodium Chloride 500 ml @ 30 mls/hr [id number] PRN IV 12/26/16 15:00 12/29/16 14:59 (Lopressor) 25 mg [employer] PRN PO 12/26/16 15:00 12/29/16 14:59 (Betadine 5% Antisepsis Kit) 1 applic [employer] PRN EACH NARE 12/26/16 15:00 12/29/16 14:59 (Chlorhexidine 2% Cloth) 3 pack [employer] PRN TOPICAL 12/26/16 15:00 12/29/16 14:59 (NovoLIN R INJ) See Protocol Table ... [employer] PRN SQ 12/26/16 15:00 12/29/16 14:59 Social History Prior to admission patient lived in [place], [place]. One pack per day tobacco. 2 beers per day. Physical Exam Vital Signs Vital Signs Date Time Temp Pulse Resp B/P (MAP) Pulse Ox O2 Delivery O2 Flow Rate FiO2 12/26/16 20:00 98.4 75 17 119/60 (79) 100 12/26/16 16:51 98.1 81 18 113/67 (82) 98 12/26/16 12:15 98.0 68 18 125/66 (85) 98 12/26/16 08:48 98.2 67 18 123/62 (82) 98 12/26/16 05:32 98.3 76 18 108/70 (83) 98 12/26/16 01:20 98.4 72 18 115/65 (82) 97 Physical Exam All distal digits to feet with black hard necrotic tissue and dry/stable. Margins appear non-infected and viable at periphery. No pain per patient at this time. Hair growth present and palpable pulses. Laboratory Date/Time Source Procedure Growth Status 11/15/16 05:20 Blood Peripheral Aerobic Blood Culture - Final NO GROWTH IN 5 DAYS Complete 11/15/16 05:20 Blood Peripheral Anaerobic Blood Culture - Final NO GROWTH IN 5 DAYS Complete 11/16/16 06:00 Sputum Endotracheal Gram Stain - Final Complete 11/16/16 06:00 Sputum Endotracheal Sputum Culture - Final HEAVY GROWTH NORMAL RESPIRATORY YOAN Complete 11/06/16 13:00 Urine Random Urine Urine Culture - Final <10,000 CFU/ML GRAM POSITIVE YOAN Complete 11/16/16 11:13 Wound Neck Gram Stain - Final Complete 11/16/16 11:13 Wound Neck Wound Culture - Final HEAVY GROWTH NORMAL SKIN YOAN... Complete Result Diagram: 12/22/1625 12/22/16524 Assessment and Plan Assessment and Plan Gangrene distal digits 1-5 bilaterally, stable Continue to monitor Recommend betadine swab to periphery of all digits at necrotic/viable juncture daily Podiatry signing off. No surgical intervention at this time. Re-consult if new issues arise. Toribio Martinez DPM Dec 26, 2016 22:25
[2016-12-27] VITALS: BP 124/58; PULSE 60; RESP 17; TEMP 98.2; O2SAT 98
[2016-12-27] MEDS: DILTIAZEM HCL 90 MG TAB PO SCH ×5 (00:56→23:28)
[2016-12-27] MEDS: cloNIDine HCL 0.1 MG TAB PO SCH ×3 (02:00→18:18)
[2016-12-27 04:00] VITALS: BP 130/59; PULSE 57; RESP 17; TEMP 97.3; O2SAT 100
[2016-12-27] MEDS: CHLORHEXIDINE GLUCONATE 2 % 1 PACK (2 CLOTHS) TOP SCH (04:00)
[2016-12-27] MEDS ORDERED: ceFAZolin 2 GM PREMIX 50 ML IV ONE (06:00)
[2016-12-27] MEDS ORDERED: THROMBIN (TOPICAL) 5,000 UNIT VIAL ONE (07:52)
[2016-12-27] MEDS ORDERED: GELFOAM SIZE 100 ONE (07:53)
[2016-12-27] MEDS ORDERED: GENTAMICIN SULFATE 80 MG/2 ML VIAL ONE (07:53)
[2016-12-27] MEDS ORDERED: LIDOCAINE 1%/EPINEPHrine 1:100,000 SOLN 20 ML VIAL ONE (07:54)
[2016-12-27] MEDS ORDERED: ACETAMINOPHEN 1000 MG/100 ML 100 ML IV ONE (07:57)
[2016-12-27] MEDS ORDERED: ARTIFICIAL TEARS OPTH OINT 3.5 APPLIC/3.5 GM TUBO ONE (07:58)
[2016-12-27] MEDS: CHLORHEXIDINE 0.12% (ORAL KIT) 15 ML CUP MT SCH ×2 (08:00→20:49)
[2016-12-27 08:07] VITALS: BP 119/57; PULSE 66; RESP 18; TEMP 98; O2SAT 100
[2016-12-27] MEDS: ARTIFICIAL TEARS OPTH SOLN 15 ML BTL EACH EYE SCH ×3 (08:29→18:18)
[2016-12-27] MEDS: BENEPROTEIN POWDER 1 PACK G-TUBE SCH ×3 (08:29→18:00)
[2016-12-27] MEDS: COLLAGENASE OINT 30 GM TUBE TOPICAL SCH (08:30)
[2016-12-27] MEDS: SODIUM CHLORIDE 0.9% FLUSH 10 ML FLUSH IV FLUSH SCH ×2 (08:30)
[2016-12-27] MEDS: levETIRAcetam 500 MG/5 ML UDC NG SCH (08:30)
[2016-12-27] MEDS: LACTOBACILLUS ACIDOPHILUS TAB PO SCH ×3 (08:30→18:18)
[2016-12-27] MEDS: BACITRACIN TOP OINT 15 GM TUBE TOPICAL SCH ×2 (08:30→20:50)
[2016-12-27] MEDS: FAMOTIDINE 20 MG TAB PO SCH ×2 (08:30→20:50)
[2016-12-27] MEDS: ASCORBIC ACID 500 MG TAB PO SCH ×2 (08:30→20:50)
[2016-12-27] MEDS ORDERED: levETIRAcetam 500 MG/5 ML VIAL IV ONE (10:06)
--- NOTE | 2016-12-27 11:00 | HHI.PR ---
Subjective Remarks Went for surgery. Seen after the surgery. Patient in surgical ICU, vitals are stable. He complaints of pain at the surgical side. He is sleepy. No chest pain or sob. No n/v/d/c. No fevers or chills. Discussed with Dr Perry and Angie WU with neurosurgery Objective Vitals Vital Signs Date Time Temp Pulse Resp B/P (MAP) Pulse Ox O2 Delivery O2 Flow Rate FiO2 12/27/16 08:07 98.0 66 18 119/57 (77) 100 12/27/16 04:00 97.3 57 17 130/59 (82) 100 12/27/16 00:00 98.2 60 17 124/58 (80) 98 12/26/16 20:00 98.4 75 17 119/60 (79) 100 12/26/16 16:51 98.1 81 18 113/67 (82) 98 12/26/16 12:15 98.0 68 18 125/66 (85) 98 I/O 12/26/16 12/26/16 12/26/16 12/27/16 12/27/16 12/27/16 07:00 15:00 23:00 07:00 15:00 23:00 Intake Total 480 ml 1000 ml Output Total 400 ml 475 ml 500 ml Balance -400 ml 5 ml 500 ml Intake Oral 480 ml Other 1000 ml Output Urine Total 400 ml 475 ml 470 ml Estimated Blood Loss 30 ml # Voids 1 # Bowel Movements 1 1 Imaging Last Impressions Modified Barium Swallow 12/23/16 0000 Signed Impressions: Service Date/Time: Friday, December 23, 2016 09:11 - CONCLUSION: Negative for aspiration.. Remington Woodward MD FACR Chest X-Ray 12/04/16 9553 Signed Impressions: Service Date/Time: Sunday, December 04, 2016 18:55 - CONCLUSION: 1. Placement of left central line tip in superior vena cava. No pneumothorax. Mild basilar airspace disease. Small right effusion. Gurwinder Root MD Upper Extremity Ultrasound 12/04/16 0000 Signed Impressions: Service Date/Time: Sunday, December 04, 2016 15:37 - CONCLUSION: 1. Positive for occlusive deep venous thrombosis in the right axillary and subclavian vein. Occlusive superficial thrombus in bilateral cephalic veins. Gurwinder Root MD Angiography 12/01/16 0000 Signed Impressions: Service Date/Time: November 14:02 - CONCLUSION: 1. Right side up on her hemorrhage with angiography of the right bronchial artery revealing no source of active hemorrhage. Empiric embolization was performed. Santos Crockett Jr., MD Chest CT 11/28/16 Signed Impressions: Service Date/Time: Tuesday, November 29, 2016 05:13 - CONCLUSION: 1. Patchy alveolar disease characteristic of edema or pneumonia. 2. Severe emphysema 3. Gastrojejunostomy tube looped in the stomach Harvey Morejon MD Chest/Thorax CTA 11/26/16 Signed Impressions: Service Date/Time: Saturday, November 26, 2016 20:18 - CONCLUSION: 1. Extensive filling defects within the right central bronchial tree characteristic of endobronchial hemorrhage. 2. Consolidating airspace disease in the right upper lobe and right lower lobe characteristic of hemorrhage and post obstructive lung consolidation. 3. Right bronchial artery is identified extending to the central right bronchial region 4. Advanced COPD. Nasir Amanda MD Abdomen X-Ray 11/19/16599 Signed Impressions: Service Date/Time: Saturday, November 19, 2016 02:44 - CONCLUSION: Unchanged bowel gas pattern potentially relating to an ileus. Santos Crockett Jr., MD Transcranial Doppler Study Complete 10/20/16599 Signed Impressions: Service Date/Time: October 07:54 - CONCLUSION: Slight interval elevation of flow velocity measurements and ratio on the left Yosvany Polk MD Liver Ultrasound 10/19/16 Signed Impressions: Service Date/Time: Wednesday, October 19, 2016 11:20 - CONCLUSION: 1. Sludge filled gallbladder with thickened wall. 2. Moderate size bilateral pleural effusions and mild upper abdominal ascites. Santos Vazquez MD Cerebral Arteriogram 10/19/16 Signed Impressions: Service Date/Time: Wednesday, October 19, 2016 12:47 - CONCLUSION: Uncomplicated cerebral arteriography with spasmolytic therapy as described in detail above. Yosvany Polk MD Head CT 10/17/16 Signed Impressions: Service Date/Time: Monday, October 17, 2016 15:06 - CONCLUSION: Ventricles are slightly larger without ventriculostomy. Edema in the left hemisphere the brain herniating through the operative site. Remington Woodward MD FACR Infusion Non-thrombolysis 10/14/16 1103 Signed Impressions: Service Date/Time: Friday, October 14, 2016 10:21 - CONCLUSION: 1. Uncomplicated infusion for spasmolysis Harvey Morejon MD Neck CTA 10/07/16 0000 Signed Impressions: Service Date/Time: Friday, October 07, 2016 15:03 - CONCLUSION: 1. Mild carotid bulb atherosclerotic calcification bilaterally. However, no significant stenosis is present in either internal carotid artery. 2. Paranasal sinus mucoperiosteal thickening. 3. Please refer to brain CTA report for description of the intracranial findings. Yosvany Ramirez MD Head CTA 10/07/16 0000 Signed Impressions: Service Date/Time: Friday, October 07, 2016 15:03 - CONCLUSION: 1. 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 2. Large left subdural hematoma measuring 1.3 cm in depth with a significant, 1.6 cm left to right subfalcine shift. Joni Shelton MD Objective Remarks GENERAL: Awake and alert, oriented, appears in nad. SKIN: All toes with digital ischemia, left 2nd finger and right ringer finger with distal digit ischemia. Stage 1-2 decubitus ulcer NECK: Bandage noted at neck in covering trach site c/d/i. CARDIOVASCULAR: Regular rate and rhythm. RESPIRATORY: No accessory muscle use. Clear to auscultation. Breath sounds equal bilaterally. GASTROINTESTINAL: Abdomen soft, non-tender, nondistended. Soft PEG in place, site c/d/i MUSCULOSKELETAL: Extremities without clubbing, cyanosis, or edema. No obvious deformities. Bilateral radial and DP,PT ++ NEUROLOGICAL: Alert and oriented x3, pleasant. Speech IS soft with short sentences. Procedures 10/13 Four-vessel cerebral angiography with verapamil treatment of vasospasm Status post left frontotemporal parietal craniectomy 10/08 for evacuation subdural hematoma/duraplasty. 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 parietal cranioplasty with replacement of skull flap by Dr Perry neurosurgery on 12/27/16 Date of Insertion: Dec 04, 2016 Line: Central Venous Catheter Side: Left Location: Internal, Jugular A/P Problem List: (1) Subarachnoid hemorrhage due to ruptured aneurysm ICD Code: I60.8 - Other nontraumatic subarachnoid hemorrhage (2) Subdural hematoma ICD Code: I62.00 - Nontraumatic subdural hemorrhage, unspecified (3) Intracranial aneurysm ICD Code: I67.1 - Cerebral aneurysm, nonruptured (4) Respiratory failure ICD Code: J96.90 - Respiratory failure, unspecified, unspecified whether with hypoxia or hypercapnia Status: Acute Assessment and Plan 56-year-old male presents with intracranial bleed, was transferred from [facility]. S/P left frontotemporal parietal craniotomy: Pt tolerating diet that was advanced yesterday. Still awaiting information (date/time) about bone flap surgery. Respiratory: Pt tolerating recent decannulation. Oxygen saturation noted to be 97-100 over past 24 hours. Hypotension: pt evidenced systolic blood pressure readings of 103, 105,106x2. Clonidine held and pressures improved. Will hold clonidine at this time. Monitor. If blood pressure improves will consider discontinuing Clonidine tomorrow. Status post left frontotemporal parietal craniectomy 10/08 for evacuation subdural hematoma/duraplasty. 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 Initiated 10/13. - Levetiracetam 500 mg per tube q12h. - 10/13 and 10/14 and 10/17) 10/19 left MCA territory vasospasm, status post successful verapamil treatment by IR with 20 mg verapamil - 10/17 CT brain - less hemisphere edema with herniation through left craniotomy site, now improved. - Dr. Perry/neurosurgery. Plan to replace bone flap in the future - Echocardiogram 10/14/16 revealed EF 40-45%. Septal hypokinesis. Moderate MR. Severe pulmonary hypertension with pulmonary artery pressures estimated 61 mmHg Limited Echo 11/06: LVEF 60-65%, Trivial mitral and tricuspid regurgitation, No vegetations noted. - Continue diltiazem's 90 mg by mouth every 6 hours and furosemide 20 mg daily - neurologically stable and doing well, and continued PT and rehabilitation. - PT, OT, speech following. Patient will need helmet when out of bed to chair. Helmet at bedside - Patient activity should be increased to out of bed to chair with helmet. Respiratory failure, S/P tracheostomy - S/p Trach Dr. Sullivan/Dr. Collazo 11/01 #8 [place] - CT angiogram chest/neck revealed right centrilobular bleeding likely source right bronchial artery. Repeat CT chest 11/29no visualization of active bleeding.- Resolved - 12/01 - embolization of right bronchial artery by IR- no further bleeding from tracheostomy - Redo trach 11/[address] Sullivan; down sized to uncuffed fenestrated 6 tracheostomy on 12/14 and now capped. - Albuterol/ipratropium aerosols every 6 hours with albuterol aerosols - Dr. Wilson plan is to downsize tube and probably considering tracheostomy removal - Tolerated tracheostomy capping. Has been decannulated. Tolerating room air. - Monitor Respiratory status Ileus- improving. Monitor Elevated transaminases Hyperammonemia Severe protein caloric malnutrition- continue with tube feeds as tolerated. - Currently on Glucerna 1.5 goal 60 cc an hour. Consult registered nurse first assistant to review formula. - free water per G tube 200mL per tube q6h. - Lansoprazole 30 mg by tube daily for GI prophylaxis will change this to Pepcid - Continue bowel regimen - Reglan DC 12/13- stools amount decreased and thicker in consistency- continue to monitor - Continue PEG feeding. s/p PEG 11/12/16 - speech following for swallowing progress - Tube feeds only at night, patient has regular trach during the daytime, will order ensure pudding - Dietitian consulted to reevaluate tube feeding rate. Right occlusive subclavian, axillary and bilateral superficial cephalic thrombus - limited Echo to evaluate vegetation-neg. ID following - Digital Ischemia with necrosis involving all toes and left 2nd finger and right ringer finger- stable, conservative management - Digits have demarcated, allow auto amputation. Cardizem PO currently and 90 mg every 6 hours (for digital ischemia, Raynaud's) - Continue bacitracin twice a day to affected areas - Central line for IV access. We'll need to be started on systemic anticoagulation at some point however with recent embolization for hemoptysis holding full anticoagulation at this time. Stage 2 sacral ulcer - ABD dressing with [employer]- staff nurse makes sure to keep area dry - Turn position every 2 hours - Out of bed to chair activity Course of hospitalization complications Acute hypoxic Respiratory failure secondary to mucous plugging- Resolved Possible healthcare associated pneumonia, Septic Shock- resolved. ARDS - resolved Noncardiogenic/neurogenic pulmonary edema- resolved. Massive Hemoptysis - resolved Aspiration pneumonitis - resolved Cerebral Salt Wasting/SIADH-resolved now hypernatremic - Creatinine currently within normal limits -> resolved. - Monitor urine output Septic and cardiogenic shock- resolved. LV dysfunction secondary to SAH - persistent, now resolved Elevated troponin- secondary to SAH, unlikely to be ACS. - resolved. Pulmonary hypertension s/p PEA arrest 11/28 after ETT dislodgement, hypoxic arrest DVT prop SCD, no chemoprophylaxis secondary to risk for bleeding Full Code Discussed with patient, nurse, Angie Ferraro and Dr Perry from neurosurgery Discharge Planning Pending SSI. Placement will be in jail facility or long-term care. CM following. S/p BONE FLAP 12/27/16. DISCUSSED WITH NEUROSURGERY. MONITOR IN ICU Problem Qualifiers (1) Respiratory failure: Qualified Codes: J96.00 - Acute respiratory failure, unspecified whether with hypoxia or hypercapnia Nancy Guardado MD Dec 27, 2016 11:00
[2016-12-27] MEDS ORDERED: *MEPERIDINE 25 MG INJ VIAL PERIprocedural Use ONLY ONE (11:21)
--- NOTE | 2016-12-27 11:25 | PD.OP ---
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 A cranioplasty was indicated. The [id number] details of the procedure, indications, alternatives , risks and potential complications were fully discussed with the patient. The patient fully understood. All his questions were answered. No guarantees were given. The patient voiced requesting the procedure and provided informed consents. He was offered the alternative of delaying the procedure and continuing with nonsurgical management. DETAILS OF THE SURGICAL PROCEDURE The patient was endotracheally intubated and mechanically ventilated. A Maldonado catheter, bilateral TR hose and sequential compression devices were placed and kept throughout the procedure. The patient was positioned supine on a 3080 table over a soft mattress. The head was placed on a gel doughnut. All pressure points were carefully padded with egg crate mattress. The eyes were tapped shut after ointment was applied by the anesthesiologist to prevent corneal abrasion. A Kang hugger was placed over the exposed lower body to maintain control of the core body temperature. The old left frontal temporal parietal incision was marked and infiltrated with 1% lidocaine with epinephrine 1:100,000 dilution. The skin incision was made with a #10 blade. Small cranial bleeders were controlled with the bipolar and Jasbir clips were applied to the scalp edges. Then, the scalp flap was carefully elevated and retracted anteriorly, exposing the edges of the craniectomy defect. Hemostasis was secured and the incision was irrigated with a large amount of antibiotic solution. Then, the scalp was covered with a moist Ray-Jean Claude soaked in antibiotic solution and fishhooks were applied to the incision. There was an area of dural defect which was reconstructed using a piece of Duragen. The patient's craniotomy flap was carefully washed with antibiotic solution and a reconstructive cranioplasty was performed by carefully placing autologous bone fragments which were carefully secured using Biomed plates and screws. The flap was secured using [place] plates and 4 mm screws. A solid placement of the bone was achieved with good very cosmetic result. The incision was thoroughly irrigated with antibiotic solution. The closure was then performed in layers. The temporalis fascia was closed with interrupted 0 Vicryl sutures. The galea was closed with interrupted 3-0 Vicryl sutures. [place] were applied to the skin. A 7 mm Adal-Edwards drain was left in the subgaleal space and externalized through the a separate stab incision and secured with 3-0 nylon. A sterile dressing was placed. At the end of the procedure the sponge, needle and instrument counts were all correct. Estimated blood loss was 80 cc. No blood transfusion was given. No intraoperative complications occurred. The patient received prophylactic antibiotics. The patient was then transferred to the recovery room in stable condition. George Perry MD Dec 27, 2016 11:25
[2016-12-27] MEDS ORDERED: ACETAMINOPHEN 325 MG TAB PO PRN (11:30)
[2016-12-27] MEDS ORDERED: BISACODYL 10 MG SUPP RECTAL PRN (11:30)
[2016-12-27] MEDS ORDERED: MORPHINE SULFATE 4 MG/ML INJ IV PUSH PRN (11:30)
[2016-12-27] MEDS ORDERED: ONDANSETRON HCL 4 MG/2 ML VIAL IV PUSH PRN (11:30)
[2016-12-27] MEDS ORDERED: CALCIUM GLUCONATE 10% 1 GM/10 ML VIAL IV PRN (11:30)
[2016-12-27] MEDS ORDERED: POTASSIUM CHLOR 20 MEQ PREMIX 100 ML IV PRN (11:30)
[2016-12-27] MEDS ORDERED: SODIUM CHLORIDE 0.9% FLUSH 5 ML FLUSH IVF PRN (11:30)
[2016-12-27] MEDS ORDERED: MAGNESIUM SULFATE INJ 4 GM in SODIUM CHLORIDE 0.9% INJ 100 ML IV PRN (11:30)
[2016-12-27] MEDS ORDERED: DO NOT ADM ANY ANTICOAGULANT DRUGS PRN (11:45)
[2016-12-27] MEDS: NS + KCL 20 MEQ INJ 1,000 ML IV SCH ×2 (11:45→21:42)
[2016-12-27 12:00] VITALS: BP 119/72; PULSE 63; RESP 12; TEMP 97.5; O2SAT 100
[2016-12-27] MEDS ORDERED: CALCIUM GLUCONATE INJ 1 GM in SODIUM CHLORIDE 0.9% INJ 100 ML IV PRN (12:00)
[2016-12-27] MEDS ORDERED: levETIRAcetam INJ 500 MG in SODIUM CHLORIDE 0.9% INJ 100 ML IV SCH ×2 (12:00→22:00)
[2016-12-27] MEDS: FERROUS SULFATE 325 MG (65 MG ELEMENTAL IRON) TAB PO SCH ×2 (14:28→16:37)
[2016-12-27] MEDS: ACETAMINOPHEN/HYDROcodone 325 MG/10 MG TAB PO PRN (14:45)
[2016-12-27 16:00] VITALS: BP 126/84; PULSE 67; RESP 10; TEMP 97.5; O2SAT 98
--- NOTE | 2016-12-27 16:09 | MB ---
cc: BRUCE VALENTE MD DATE OF CONSULTATION: 12/27/[address] Bruce Valente. REFERRING PHYSICIAN: George Perry MD. REASON FOR CONSULTATION: peripheral vascular disease, acral gangrene. HISTORY OF PRESENT ILLNESS: This 56-year-old male appearing much older than actual age presented in the end of September this year to [facility] with intracranial hemorrhage. The patient apparently went frontotemporal craniectomy on 10/08 with evacuation of subdural hematoma since then bone flap was placed by Dr. Derrick Ramirez in the meantime the patient had ischemic encephalopathy a respiratory failure and problems that led to application of multiple vasopressors and somewhere along the line the patient developed gangrene of the tips of the toes and one on the right hand. The patient also had the tracheostomy and percutaneous endoscopic gastrostomy tube placed between September and now. He is now back in ICU after the flap placement and gangrene of the toes and hands is questioned, hence the consultation. PAST SURGICAL HISTORY: The past surgical history is that of above-noted craniotomy. Percutaneous endoscopic gastrostomy tracheostomy. MEDICATIONS: Medications can be found on the record are multiple. SOCIAL HISTORY The patient was a heavy smoker. PHYSICAL EXAMINATION: IN GENERAL: Physical examination reveals now a 56-year-old male appearing much older than his actual age, normocephalic trauma to the head from the previous surgeries but that is about it. HEAD, EYES, EARS, NOSE, AND THROAT: Pupils are equal and reactive. Extraocular muscles cannot be tested. No icterus. NECK: Bilateral carotid pulses and bilateral carotid bruits. CHEST: Bilateral breath sounds decreased over both lung rose. The patient appears very emaciated and he is sort of in a position. HEART: Regular rhythm. He is apparently on Cardizem. Because there is some arrhythmias in the past. ABDOMEN: Soft, patulous active bowel sounds. EXTREMITIES: The patient has partial contractures of both legs in the hip area and has not been obviously ambulatory for two months if not longer, he has atrophy of upper and lower extremities. He has palpable femoral pulses actually and dopplerable dorsalis pedis posterior tibial bilateral both feet are warm. He has dry gangrene of all toes of the right and left foot encompassing the distal phalanx and then the middle phalanx on his hallux. On his hands he has gangrene of the distal index finger of the right hand. IMPRESSION/RECOMMENDATIONS The patients who are admitted to hospital for multiple medical problems and developed sepsis resulting in need for vasopressors will occasionally develop acral gangrene of the extremities. This can be caused by either application of vasopressors for prolonged period of time, superimposed preexisting peripheral vascular disease like Greyson-Synephrine or vasopressin or the condition may be exacerbated by heparin induced thrombocytopenia, disseminated intravascular coagulation which in essence is not the bleeding but a clotting problem and other sequela of sepsis which cause activation of various inflammatory factors that the in correlation with the coagulation factors will cause gangrene and ischemic tissue damage even internal organs. In this gentleman this is probably combination of all of the above. At this point I will work the patient up for peripheral vascular disease just to have a baseline study make sure that when the patient undergoes possible surgical amputations or Ortho amputations of his distal toes. This actually has a chance of healing. I will continue to follow the patient with you. Critical care time 42 minutes. Bruce Weston /3:27 PM /3:50 PM
[2016-12-27] MEDS: ceFAZolin 2 GM PREMIX 50 ML IV SCH ×2 (16:39→23:28)
[2016-12-27] MEDS: MORPHINE SULFATE 4 MG/ML INJ IV PUSH PRN (16:40)
--- NOTE | 2016-12-27 18:44 | RADRPT ---
EXAM DATE/TIME: 12/27/2016 17:19 [place] COMPARISON: No previous studies available for comparison. INDICATIONS : Previous stroke. MEDICAL HISTORY : Hypertension. Seizures. SURGICAL HISTORY : Craniotomy. Tracheotomy. ENCOUNTER: Initial ACUITY: 1 day PAIN SCORE: Nonresponsive. LOCATION: Bilateral neck PEAK SYSTOLIC VELOCITIES (cm/sec): ICA/CCA RATIO: Right: 1.0 Left: 1.0 ICA: Right: 74.7 Left: 88.3 CCA: Right: 76.3 Left: 88.4 ECA: Right: 72.5 Left: 86.5 VERTEBRAL: Right: 74.6 antegrade Left: 59.6 antegrade Elevated flow velocities and ICA/CCA ratios have been found to correlate with increased degrees of vessel stenosis, calculated as percentage of diameter relative to a normal segment of distal ICA/CCA FINDINGS: RIGHT CAROTID: There is mild plaque at the right carotid bulb region. No significant stenosis is visualized. The wa veforms are within normal limits. LEFT CAROTID: There is mild plaque at the left carotid bulb region. No significant stenosis is visualized. The wav eforms are within normal limits. VERTEBRAL ARTERIES: Antegrade flow is seen in both vertebral arteries. MISCELLANEOUS: None. CONCLUSION: Mild plaque at the carotid bulb regions bilaterally without a significant stenosis seen. Yosvany Alfaro MD on December 27, 2016 at 18:41 Board Certified Radiologist. This report was verified electronically.
--- NOTE | 2016-12-27 19:14 | HHI.PR ---
Subjective Remarks TRACH REMOVED NO SOB CRANIOPLASTY DONE WELL TOLERATED Objective Vital Signs Date Time Temp Pulse Resp B/P (MAP) Pulse Ox O2 Delivery O2 Flow Rate FiO2 12/27/16 16:00 97.5 67 10 126/84 (98) 98 12/27/16 12:00 97.5 63 12 119/72 (88) 100 12/27/16 11:45 97.5 60 16 121/72 (88) 98 Room Air 12/27/16 11:30 62 12 117/72 (87) 98 Room Air 12/27/16 11:15 64 14 113/76 (88) 98 Room Air 12/27/16 11:00 63 15 106/68 (81) 99 Room Air 12/27/16 10:57 97.5 67 15 115/72 (86) 99 Room Air 12/27/16 08:07 98.0 66 18 119/57 (77) 100 12/27/16 04:00 97.3 57 17 130/59 (82) 100 12/27/16 00:00 98.2 60 17 124/58 (80) 98 12/26/16 20:00 98.4 75 17 119/60 (79) 100 I/O 12/26/16 12/26/16 12/26/16 12/27/16 12/27/16 12/27/16 07:00 15:00 23:00 07:00 15:00 23:00 Intake Total 480 ml 1010 ml 440 ml Output Total 400 ml 475 ml 510 ml 550 ml Balance -400 ml 5 ml 500 ml -110 ml Intake Oral 480 ml 440 ml IV Total 10 ml Other 1000 ml Output Urine Total 400 ml 475 ml 470 ml 500 ml Drainage Total 10 ml 50 ml Estimated Blood Loss 30 ml # Voids 1 # Bowel Movements 1 1 Objective Remarks GENERAL: SKIN: Warm and dry. HEAD: Atraumatic. Normocephalic. EYES: Pupils equal and round. No scleral icterus. No injection or drainage. ENT: No nasal bleeding or discharge. Mucous membranes pink and moist. NECK: Trachea midline. No JVD. CARDIOVASCULAR: Regular rate and rhythm. RESPIRATORY: No accessory muscle use. Clear to auscultation. Breath sounds equal bilaterally. TRACHEOSTOMY IN PLACE GASTROINTESTINAL: Abdomen soft, non-tender, nondistended. Hepatic and splenic margins not palpable. MUSCULOSKELETAL: Extremities without clubbing, cyanosis, or edema. No obvious deformities. NEUROLOGICAL: Awake and alert. No obvious cranial nerve deficits. Motor grossly within normal limits. Five out of 5 muscle strength in the arms and legs. Normal speech. PSYCHIATRIC: Appropriate mood and affect; insight and judgment normal. Assessment and Plan Assessment and Plan ALERT NO SOB PLAN STABLE POST CRANIOPLASTY WILL SIGHN OFF SEE Katie John MD Dec 27, 2016 19:14
[2016-12-27 20:00] VITALS: BP 124/76; PULSE 77; RESP 19; TEMP 97.5; O2SAT 99
[2016-12-27] MEDS: SODIUM CHLORIDE 0.9% FLUSH 5 ML FLUSH IVF SCH (20:49)
[2016-12-27] MEDS: levETIRAcetam 500 MG/5 ML UDC PEG SCH (20:50)
[2016-12-27] MEDS: MELATONIN 5 MG TAB PO SCH (20:50)
[2016-12-27] MEDS: DOCUSATE SODIUM 100 MG CAP PO SCH (20:50)
[2016-12-28] VITALS (8 sets, daily range): BP systolic 101–122; BP diastolic 68–79; PULSE 74–87; RESP 11–15; TEMP 97.6–98.6; O2SAT 95–100
[2016-12-28] MEDS: cloNIDine HCL 0.1 MG TAB PO SCH ×3 (02:00→17:20)
[2016-12-28] MEDS: ACETAMINOPHEN/HYDROcodone 325 MG/10 MG TAB PO PRN ×3 (02:40→18:04)
[2016-12-28] MEDS: CHLORHEXIDINE GLUCONATE 2 % 1 PACK (2 CLOTHS) TOP SCH (03:44)
[2016-12-28] MEDS: DILTIAZEM HCL 90 MG TAB PO SCH ×3 (05:05→17:19)
[2016-12-28 05:08] LABS: BASOPHIL # 0.1 TH/MM3 (0-0.2); BASOPHIL % 1.4 % (0.0-2.0); EOSINOPHIL # 0.3 TH/MM3 (0-0.4); EOSINOPHIL % 4.3 % (0.0-4.0); HEMO FLAGS DIFF FINAL; LYMPH % 21.5 % (9.0-44.0); LYMPHOCYTE # 1.7 TH/MM3 (1.0-4.8); MEAN CELL VOLUME 93.4 FL (80.0-100.0); MEAN CORPUSCULAR HEMOGLOBIN 31.1 PG (27.0-34.0); MEAN CORPUSCULAR HGB CONC 33.3 % (32.0-36.0); MONO % 9.1 % (0.0-8.0); NEUT % 63.7 % (16.0-70.0); PLATELET COUNT 228 TH/MM3 (150-450); RED BLOOD COUNT 2.89 MIL/MM3 (4.50-5.90); WHITE BLOOD COUNT 7.8 TH/MM3 (4.0-11.0)
[2016-12-28 05:10] LABS: BICARBONATE 27.6 MEQ/L (21.0-32.0); POTASSIUM 4.4 MEQ/L (3.5-5.1)
[2016-12-28] MEDS: NS + KCL 20 MEQ INJ 1,000 ML IV SCH ×2 (07:17→16:52)
[2016-12-28] MEDS: CHLORHEXIDINE 0.12% (ORAL KIT) 15 ML CUP MT SCH ×2 (08:00→21:36)
[2016-12-28] MEDS: ceFAZolin 2 GM PREMIX 50 ML IV SCH (08:00)
[2016-12-28] MEDS: SODIUM CHLORIDE 0.9% FLUSH 5 ML FLUSH IVF SCH ×2 (09:00→21:36)
[2016-12-28] MEDS: DOCUSATE SODIUM 100 MG CAP PO SCH ×2 (09:00→21:36)
[2016-12-28] MEDS: FAMOTIDINE 20 MG TAB PO SCH ×2 (09:00→21:37)
[2016-12-28] MEDS: BENEPROTEIN POWDER 1 PACK G-TUBE SCH ×3 (09:00→17:21)
[2016-12-28] MEDS: PANTOPRAZOLE SODIUM 40 MG VIAL IVP SCH (09:00)
[2016-12-28] MEDS: ARTIFICIAL TEARS OPTH SOLN 15 ML BTL EACH EYE SCH ×3 (09:00→17:21)
[2016-12-28] MEDS: levETIRAcetam 500 MG/5 ML UDC PEG SCH ×2 (09:00→21:36)
[2016-12-28] MEDS: SODIUM CHLORIDE 0.9% FLUSH 10 ML FLUSH IV FLUSH SCH (09:00)
[2016-12-28] MEDS: PANTOPRAZOLE SOD 40 MG DELAYED RELEASE TAB PO SCH (09:00)
[2016-12-28] MEDS: ASCORBIC ACID 500 MG TAB PO SCH ×2 (09:00→21:37)
[2016-12-28] MEDS: BACITRACIN TOP OINT 15 GM TUBE TOPICAL SCH ×2 (09:00→21:00)
--- NOTE | 2016-12-28 09:39 | HHI.NSPN ---
(Malinda Hines) Note Status Status: Progress Note (Malinda Hines) Interval History Interval History This is a 56-year-old male brought to the emergency room as an emergency transfer from another institution with history of intracranial bleed. He was transferred from [facility] and [facility]. Apparently the patient said that patient earlier this morning was coming down the stairs when he started feeling some left-sided weakness and numbness. He called 911 and by the time EMS arrived they detected severe neurological deficits and called a stroke alert. No seizure activity reported. No tongue biting. No incontinence of stool or urine. Patient was taken to [facility]. Apparently he was not able to move his right side . When patient arrived his mental status started to decline and he was intubated emergently in the ER for airway protection. A CT scan of the head showed extensive subarachnoid bleed. In addition he had a sizable subdural hematoma. He was brought emergently on the ventilator. He was on a propofol drip and well sedated. GCS was 3. He was on a Cardene drip and blood pressure was in the 120s. Neurosurgical consultation was requested 10/08. POD #1 Open eyes and follows commands 10/12. Doing very well. Neurologically stable. Patient is in restraints secondary to pulling out his Maldonado multiple times. 10/13. Much more lethargic, difficult to speak with new aphasia 10/14. Improved after angiography. Today he developed new onset of aphasia and right hemiparesis 10/17. Intubated and sedated. Lung infiltrates dense bilaterally, reflected in shunting and problems with oxygenation. 10/18: underwent endovascular verapamil infusion to left MCA vasospasm yesterday. TCD today pending. left flap pak today. Intubated and sedated. continues to be on multiple pressors. on 3% NS. 10/19: currently unstable for travel for repeat CT Head this am. no changes with neuro checks, remains intubated, sedated. pupils equal. continues on multiple pressors support 10/20: intubated and mildly sedated. remains on multiple pressors. pneumonia worsening. TCD this am reports slight increase in flow velocity to left, he underwent cerebral angiography yesterday with endovascular verapamil infusion right ICA. 10/21: intubated, sedated on fentanyl and versed. On Nimbex. 10/25: off Nimbex. Mildly opening eyes today. 10/26: opening eyes more today, ?focusing 10/27: intubated, minimal eye opening. not following commands. 10/28: appears more awake, following commands, focusing and tracked. shook head no when asked if doing ok. 10/31: remains intubated, tracking more today, not following with extremities 11/01: nursing reports intermittently follows commands to upper extremities. for tracheostomy today. 11/02: s/p tracheostomy, smiling today, following commands. 11/03: smiling and nodding appropriately. PT at bedside. 11/04: mouthing some words today, no acute events overnight 11/07: doing well, left craniectomy site well decompressed. febrile, ID consulted. 11/08: no changes to neuro examination, low grade fevers again this morning 12/22: reconsulted for evaluation for cranioplasty 12/26: for left cranioplasty tomorrow morning. no new complaints, dw Dr. Guardado , medically cleared for surgery. 12/28: s/p left cranioplasty 12/27/16, doing well, eating his breakfast, c/o of mild surgical pain. (Malinda Hines) Labs, Micro, & Vital Signs Results Date Time Temp Pulse Resp B/P (MAP) Pulse Ox O2 Delivery O2 Flow Rate FiO2 12/28/16 04:00 97.6 85 15 119/79 (92) 99 12/28/16 00:00 97.7 81 12 122/75 (91) 100 12/27/16 20:00 97.5 77 19 124/76 (92) 99 12/27/16 16:00 97.5 67 10 126/84 (98) 98 12/27/16 12:00 97.5 63 12 119/72 (88) 100 12/27/16 11:45 97.5 60 16 121/72 (88) 98 Room Air 12/27/16 11:30 62 12 117/72 (87) 98 Room Air 12/27/16 11:15 64 14 113/76 (88) 98 Room Air 12/27/16 11:00 63 15 106/68 (81) 99 Room Air 12/27/16 10:57 97.5 67 15 115/72 (86) 99 Room Air Constitutional Vital Signs Date Time Temp Pulse Resp B/P (MAP) Pulse Ox O2 Delivery O2 Flow Rate FiO2 12/28/16 04:00 97.6 85 15 119/79 (92) 99 12/28/16 00:00 97.7 81 12 122/75 (91) 100 12/27/16 20:00 97.5 77 19 124/76 (92) 99 12/27/16 16:00 97.5 67 10 126/84 (98) 98 12/27/16 12:00 97.5 63 12 119/72 (88) 100 12/27/16 11:45 97.5 60 16 121/72 (88) 98 Room Air 12/27/16 11:30 62 12 117/72 (87) 98 Room Air 12/27/16 11:15 64 14 113/76 (88) 98 Room Air 12/27/16 11:00 63 15 106/68 (81) 99 Room Air 12/27/16 10:57 97.5 67 15 115/72 (86) 99 Room Air (Malinda Hines) Review of Systems Neurologic: COMPLAINS OF: Headache (surgical pain), DENIES: Seizures (Malinda Hines) Physical Exam Surgical incision is clean and dry, SHRUTHI drain with minimal drainage mildly conversing, voice is soft alert, smiling, no acute distress CN: pupils equal, facial motor symmetric Motor: moves all four extremities (Malinda Hines) Medications Current Medications Current Medications Medications (Trade) Dose Ordered Sig/Adali Route PRN Reason Start Time Stop Time Status Last Admin Dose Admin Heparin Sodium (Porcine) (Heparin Inj) 5,000 units Q8HR SQ 10/14/16 22:00 Future Hold 11/13/16 21:20 Artificial Tears (Tears Naturale Opth Soln) 1 drop TID EACH EYE 10/19/16 13:00 12/27/16 18:18 Albuterol Sulfate (Albuterol Neb) 2.5 mg Q2HR NEB PRN INH SOB/WHEEZING 10/19/16 09:45 11/22/16 22:09 Miscellaneous Information 1 Q361D XX 10/19/16 09:45 Chlorhexidine Gluconate (Chlorhexidine 2% Cloth) Taper DAILY@04 TOP 10/20/16 04:00 10/16/17 03:59 12/24/16 04:00 Chlorhexidine Gluconate (Chlorhexidine 2% Cloth) 3 pack UNSCH PRN TOP HYGIENIC CARE 10/19/16 09:45 Melatonin (Melatonin) 5 mg HS PO 11/01/16 21:00 12/27/16 20:50 Diltiazem HCl (Cardizem) 90 mg Q6HR PO 11/02/16 12:00 12/28/16 05:05 Bacitracin (Baciguent Oint) 1 applic Q12HR TOPICAL 11/18/16 11:00 12/26/16 22:01 Protein (Beneprotein Powder) 1 pack TID G-TUBE 11/19/16 09:00 12/27/16 18:00 Chlorhexidine Gluconate (Peridex 0.12% Liq) 15 ml BID@08,20 MT 11/26/16 20:00 12/27/16 20:49 Collagenase (Santyl Oint) 1 applic DAILY TOPICAL 11/30/16 12:00 12/26/16 09:09 Racepinephrine (Racepinephrine 2.25% Neb) 0.5 ml Q4HR NEB PRN NEB hemoptysis/stridor 12/03/16 15:00 Nitroglycerin (Nitroglycerin 2% Oint) 2 inch Q6H PRN TOPICAL SBP>160, DBP>90 12/04/16 09:15 Clonidine (Catapres) 0.1 mg Q8H PO 12/04/16 10:00 12/27/16 18:18 Enalaprilat (Vasotec Inj) 1.25 mg Q6H PRN IV PUSH SBP>160, DBP>90 12/04/16 09:15 Sodium Chloride (NS Flush) DAILY IV FLUSH 12/04/16 18:00 12/26/16 09:08 Sodium Chloride (NS Flush) UNSCH PRN IV FLUSH SEE PROTOCOL 12/04/16 18:00 Loperamide HCl (Imodium Liq) 2 mg UNSCH PRN PO DIARRHEA 12/14/16 10:45 Lactobacillus Acidophilus (Lactinex) 1 tab TID PO 12/14/16 18:00 12/27/16 18:18 Famotidine (Pepcid) 20 mg BID PO 12/16/16 21:00 12/27/16 20:50 Ferrous Sulfate (Ferrous Sulfate) 325 mg BID@,17 PO 12/22/16 12:00 12/27/16 16:37 Ascorbic Acid (Vitamin C) 500 mg BID PO 12/22/16 09:00 12/27/16 20:50 Metoprolol Tartrate (Lopressor) 25 mg GYROSCOPIC INSTRUMENT TESTER PRN PO SEE LABEL COMMENTS 12/26/16 15:00 12/29/16 14:59 Povidone Iodine (Betadine 5% Antisepsis Kit) 1 applic GYROSCOPIC INSTRUMENT TESTER PRN EACH NARE SEE LABEL COMMENTS 12/26/16 15:00 12/29/16 14:59 Chlorhexidine Gluconate (Chlorhexidine 2% Cloth) 3 pack GYROSCOPIC INSTRUMENT TESTER PRN TOPICAL SEE LABEL COMMENTS 12/26/16 15:00 12/29/16 14:59 Insulin Human Regular (NovoLIN R INJ) See Protocol Table ... GYROSCOPIC INSTRUMENT TESTER PRN SQ SEE PROTOCOL TABLE 12/26/16 15:00 12/29/16 14:59 Potassium Chloride/Sodium Chloride 1,000 ml @ 100 mls/hr Q10H IV 12/27/16 11:17 12/27/16 21:42 IV Flush (NS Flush) 2 ml UNSCH PRN IVF FLUSH AFTER USING IV ACCESS 12/27/16 11:30 IV Flush (NS Flush) 2 ml BID IVF 12/27/16 21:00 12/27/16 20:49 Bisacodyl (Dulcolax Supp) 10 mg DAILY PRN RECTAL CONSTIPATION 12/27/16 11:30 Docusate Sodium (Colace) 100 mg BID PO 12/27/16 21:00 12/27/16 20:50 Pantoprazole Sodium (Protonix) 40 mg DAILY PO 12/28/16 09:00 Pantoprazole Sodium (Protonix Inj) 40 mg DAILY IVP 12/28/16 09:00 Ondansetron HCl (Zofran Inj) 4 mg Q6H PRN IV PUSH NAUSEA OR VOMITING 12/27/16 11:30 Potassium Chloride 100 ml @ 50 mls/hr UNSCH PRN IV POTASSIUM LESS THAN 4 12/27/16 11:30 Magnesium Sulfate 4 gm/Sodium Chloride 108 ml @ 108 mls/hr UNSCH PRN IV MAGNESIUM LESS THAN 2 12/27/16 11:30 Acetaminophen/ Hydrocodone Bitart (Lantry 10-325 Mg) 1 tab Q4H PRN PO PAIN 1-5 WHEN TOLERATING PO 12/27/16 11:30 12/27/16 14:45 Acetaminophen/ Hydrocodone Bitart (Lantry 10-325 Mg) 2 tab Q4H PRN PO PAIN 6-10 WHEN TOLERATING PO 12/27/16 11:30 12/28/16 02:40 Morphine Sulfate (Morphine Inj) 2 mg Q2H PRN IV PUSH PAIN SCALE 1 TO 6 12/27/16 11:30 12/27/16 16:40 Morphine Sulfate (Morphine Inj) 4 mg Q2H PRN IV PUSH PAIN SCALE 7 TO 10 12/27/16 11:30 Acetaminophen (Tylenol) 650 mg Q4H PRN PO TEMPERATURE > 101.5 F 12/27/16 11:30 Calcium Gluconate 1 gm/Sodium Chloride 110 ml @ 110 mls/hr UNSCH PRN IV SEE LABEL COMMENT 12/27/16 12:00 Miscellaneous Information ALL NURSING DEPARTME... UNSCH PRN .XX SEE LABEL COMMENTS 12/27/16 11:45 12/28/16 11:44 Levetriacetam (Keppra Liq) 500 mg Q12HR PEG 12/27/16 21:00 12/27/16 20:50 (Malinda Hines) Medical Decision Making MDM Remarks 56 y/o male with subarachnoid hemorrhage, status post coiling posterior communicating artery aneurysm. s/p left decompressive craniectomy. Left craniectomy site now well decompressed. s/p left cranioplasty with replacement of his bone flap on 12/27/16, doing well post-op (Malinda Hines) Plan Plan Remarks dc SHRUTHI drain, cont neuro checks, clear to transfer out of unit back to 5N near nrs station nonchemical dvt prophylaxis protonix for stress ulcer proph dw nursing - change surgical dressing with light kerlix wrap (Malinda Hines) Attending Statement The exam, history, and the medical decision-making described in the above note were completed with the assistance of the mid-level provider. I reviewed and agree with the findings presented. I attest that I had a [id number] encounter with the patient on the same day, and personally performed and documented my assessment and findings in the medical record. (George Perry MD) Malinda Hines Dec 28, 2016 09:39 George Perry MD Dec 31, 2016 14:34
--- NOTE | 2016-12-28 10:40 | PD.CAR.PN ---
CVT Progress Note Subjective/Hospital Course: 12/27/16 The patients who are admitted to hospital for multiple medical problems and developed sepsis resulting in need for vasopressors will occasionally develop acral gangrene of the extremities. This can be caused by either application of vasopressors for prolonged period of time, superimposed preexisting peripheral vascular disease like Greyson-Synephrine or vasopressin or the condition may be exacerbated by heparin induced thrombocytopenia, disseminated intravascular coagulation which in essence is not the bleeding but a clotting problem and other sequela of sepsis which cause activation of various inflammatory factors that the in correlation with the coagulation factors will cause gangrene and ischemic tissue damage even internal organs. In this gentleman this is probably combination of all of the above. At this point I will work the patient up for peripheral vascular disease just to have a baseline study make sure that when the patient undergoes possible amputations of his distal toes, this actually has a chance of healing. I will continue to follow the patient with you. 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 Ultrasound the carotids is negative CTA with runoff can be done any time probably next few days and should serve as a baseline study If patient has unreconstructable disease that would potentially impair healing of the amputation sites once the feet necrosis is attended to, then he may be subjected to perhaps angioplasty and stenting On the other hand every procedure or intervention we do has to be weighed against the patient's poor clinical status Will continue to follow nothing to add at this time Objective: Vital Signs Date Time Temp Pulse Resp B/P (MAP) Pulse Ox O2 Delivery O2 Flow Rate FiO2 12/28/16 04:00 97.6 85 15 119/79 (92) 99 12/28/16 00:00 97.7 81 12 122/75 (91) 100 12/27/16 20:00 97.5 77 19 124/76 (92) 99 12/27/16 16:00 97.5 67 10 126/84 (98) 98 12/27/16 12:00 97.5 63 12 119/72 (88) 100 12/27/16 11:45 97.5 60 16 121/72 (88) 98 Room Air 12/27/16 11:30 62 12 117/72 (87) 98 Room Air 12/27/16 11:15 64 14 113/76 (88) 98 Room Air 12/27/16 11:00 63 15 106/68 (81) 99 Room Air 12/27/16 10:57 97.5 67 15 115/72 (86) 99 Room Air Labs: Laboratory Tests Test 12/28/16 04:46 White Blood Count 7.8 TH/MM3 (4.0-11.0) Red Blood Count 2.89 MIL/MM3 (4.50-5.90) Hemoglobin 9.0 GM/DL (13.0-17.0) Hematocrit 27.0 % (39.0-51.0) Mean Corpuscular Volume 93.4 FL (80.0-100.0) Mean Corpuscular Hemoglobin 31.1 PG (27.0-34.0) Mean Corpuscular Hemoglobin Concent 33.3 % (32.0-36.0) Red Cell Distribution Width 17.0 % (11.6-17.2) Platelet Count 228 TH/MM3 (150-450) Mean Platelet Volume 9.1 FL (7.0-11.0) Neutrophils (%) (Auto) 63.7 % (16.0-70.0) Lymphocytes (%) (Auto) 21.5 % (9.0-44.0) Monocytes (%) (Auto) 9.1 % (0.0-8.0) Eosinophils (%) (Auto) 4.3 % (0.0-4.0) Basophils (%) (Auto) 1.4 % (0.0-2.0) Neutrophils # (Auto) 5.0 TH/MM3 (1.8-7.7) Lymphocytes # (Auto) 1.7 TH/MM3 (1.0-4.8) Monocytes # (Auto) 0.7 TH/MM3 (0-0.9) Eosinophils # (Auto) 0.3 TH/MM3 (0-0.4) Basophils # (Auto) 0.1 TH/MM3 (0-0.2) CBC Comment DIFF FINAL Differential Comment Blood Urea Nitrogen 18 MG/DL (7-18) Creatinine 0.48 MG/DL (0.60-1.30) Random Glucose 122 MG/DL (74-106) Calcium Level 8.2 MG/DL (8.5-10.1) Sodium Level 140 MEQ/L (136-145) Potassium Level 4.4 MEQ/L (3.5-5.1) Chloride Level 106 MEQ/L (98-107) Carbon Dioxide Level 27.6 MEQ/L (21.0-32.0) Anion Gap 6 MEQ/L (5-15) Estimat Glomerular Filtration Rate 182 ML/MIN (>89) Result Diagram: 12/28/16 0446 12/28/16 0446 Rosanne Valente MD Dec 28, 2016 10:40
[2016-12-28] MEDS: LACTOBACILLUS ACIDOPHILUS TAB PO SCH ×3 (13:00→17:19)
[2016-12-28] MEDS: FERROUS SULFATE 325 MG (65 MG ELEMENTAL IRON) TAB PO SCH ×2 (13:03→16:50)
[2016-12-28] MEDS: MORPHINE SULFATE 4 MG/ML INJ IV PUSH PRN (13:13)
--- NOTE | 2016-12-28 15:56 | HHI.PR ---
Subjective Remarks Physician to simple questions this time. Has headaches of's the surgical site. Gauze from 2 rounds without bleeding. Clean and intact. No motor deficit. No change in vision. Denies fever or chills. Objective Vitals Vital Signs Date Time Temp Pulse Resp B/P (MAP) Pulse Ox O2 Delivery O2 Flow Rate FiO2 12/28/16 12:00 98.6 74 13 111/73 (86) 98 12/28/16 08:00 98.0 87 11 109/71 (84) 98 12/28/16 04:00 97.6 85 15 119/79 (92) 99 12/28/16 00:00 97.7 81 12 122/75 (91) 100 12/27/16 20:00 97.5 77 19 124/76 (92) 99 12/27/16 16:00 97.5 67 10 126/84 (98) 98 I/O 12/27/16 12/27/16 12/27/16 12/28/16 12/28/16 12/28/16 07:00 15:00 23:00 07:00 15:00 23:00 Intake Total 1010 ml 1443 ml 891 ml Output Total 510 ml 550.0 ml 1180 ml Balance 500 ml 893.0 ml -289 ml Intake Oral 440 ml 100 ml IV Total 10 ml 1003 ml 791 ml Other 1000 ml Output Urine Total 470 ml 500 ml 1150 ml Tube Feeding Residual Discard 0 ml Drainage Total 10 ml 50 ml 30 ml Estimated Blood Loss 30 ml # Voids 1 # Bowel Movements 1 Result Diagram: 12/28/16 0446 12/28/16 0446 Imaging Last Impressions Carotid Artery Ultrasound 12/27/16 0000 Signed Impressions: Service Date/Time: Tuesday, December 27, 2016 17:19 - CONCLUSION: Mild plaque at the carotid bulb regions bilaterally without a significant stenosis seen. Yosvany Alfaro MD Modified Barium Swallow 12/23/16 0000 Signed Impressions: Service Date/Time: Friday, December 23, 2016 09:11 - CONCLUSION: Negative for aspiration.. Remington Woodward MD FACR Chest X-Ray 12/04/16 5303 Signed Impressions: Service Date/Time: Sunday, December 04, 2016 18:55 - CONCLUSION: 1. Placement of left central line tip in superior vena cava. No pneumothorax. Mild basilar airspace disease. Small right effusion. Gurwinder Root MD Upper Extremity Ultrasound 12/04/16 Signed Impressions: Service Date/Time: Sunday, December 04, 2016 15:37 - CONCLUSION: 1. Positive for occlusive deep venous thrombosis in the right axillary and subclavian vein. Occlusive superficial thrombus in bilateral cephalic veins. Gurwinder Root MD Angiography 12/01/16 0000 Signed Impressions: Service Date/Time: November 14:02 - CONCLUSION: 1. Right side up on her hemorrhage with angiography of the right bronchial artery revealing no source of active hemorrhage. Empiric embolization was performed. Santos Crockett Jr., MD Chest CT 11/28/16 Signed Impressions: Service Date/Time: Tuesday, November 29, 2016 05:13 - CONCLUSION: 1. Patchy alveolar disease characteristic of edema or pneumonia. 2. Severe emphysema 3. Gastrojejunostomy tube looped in the stomach Harvey Morejon MD Chest/Thorax CTA 11/26/16 Signed Impressions: Service Date/Time: Saturday, November 26, 2016 20:18 - CONCLUSION: 1. Extensive filling defects within the right central bronchial tree characteristic of endobronchial hemorrhage. 2. Consolidating airspace disease in the right upper lobe and right lower lobe characteristic of hemorrhage and post obstructive lung consolidation. 3. Right bronchial artery is identified extending to the central right bronchial region 4. Advanced COPD. Nasir Amanda MD Abdomen X-Ray 11/19/16 06 Signed Impressions: Service Date/Time: Saturday, November 19, 2016 02:44 - CONCLUSION: Unchanged bowel gas pattern potentially relating to an ileus. Santos Crockett Jr., MD Transcranial Doppler Study Complete 10/20/16 06 Signed Impressions: Service Date/Time: October 07:54 - CONCLUSION: Slight interval elevation of flow velocity measurements and ratio on the left Yosvany Polk MD Liver Ultrasound 10/19/16 Signed Impressions: Service Date/Time: Wednesday, October 19, 2016 11:20 - CONCLUSION: 1. Sludge filled gallbladder with thickened wall. 2. Moderate size bilateral pleural effusions and mild upper abdominal ascites. Santos Vazquez MD Cerebral Arteriogram 10/19/16 Signed Impressions: Service Date/Time: Wednesday, October 19, 2016 12:47 - CONCLUSION: Uncomplicated cerebral arteriography with spasmolytic therapy as described in detail above. Yosvany Polk MD Head CT 10/17/16 0000 Signed Impressions: Service Date/Time: Monday, October 17, 2016 15:06 - CONCLUSION: Ventricles are slightly larger without ventriculostomy. Edema in the left hemisphere the brain herniating through the operative site. Remington Woodward MD FACR Infusion Non-thrombolysis 10/14/16 1103 Signed Impressions: Service Date/Time: Friday, October 14, 2016 10:21 - CONCLUSION: 1. Uncomplicated infusion for spasmolysis Harvey Morejon MD Neck CTA 10/07/16 0000 Signed Impressions: Service Date/Time: Friday, October 07, 2016 15:03 - CONCLUSION: 1. Mild carotid bulb atherosclerotic calcification bilaterally. However, no significant stenosis is present in either internal carotid artery. 2. Paranasal sinus mucoperiosteal thickening. 3. Please refer to brain CTA report for description of the intracranial findings. Yosvany Ramirez MD Head CTA 10/07/16 0000 Signed Impressions: Service Date/Time: Friday, October 07, 2016 15:03 - CONCLUSION: 1. 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 2. Large left subdural hematoma measuring 1.3 cm in depth with a significant, 1.6 cm left to right subfalcine shift. Joni Shelton MD Objective Remarks GENERAL: Awake and alert, oriented, appears in nad. SKIN: All toes with digital ischemia, left 2nd finger and right ringer finger with distal digit ischemia. Stage 1-2 decubitus ulcer NECK: Bandage noted at neck in covering trach site c/d/i. CARDIOVASCULAR: Regular rate and rhythm. RESPIRATORY: No accessory muscle use. Clear to auscultation. Breath sounds equal bilaterally. GASTROINTESTINAL: Abdomen soft, non-tender, nondistended. Soft PEG in place, site c/d/i MUSCULOSKELETAL: Extremities without clubbing, cyanosis, or edema. No obvious deformities. Bilateral radial and DP,PT ++ NEUROLOGICAL: Alert and oriented x3, pleasant. Speech IS soft with short sentences. Procedures 10/13 Four-vessel cerebral angiography with verapamil treatment of vasospasm Status post left frontotemporal parietal craniectomy 10/08 for evacuation subdural hematoma/duraplasty. 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 parietal cranioplasty with replacement of skull flap by Dr Perry neurosurgery on 12/27/16 Date of Insertion: Dec 04, 2016 Line: Central Venous Catheter Side: Left Location: Internal, Jugular A/P Problem List: (1) Subarachnoid hemorrhage due to ruptured aneurysm ICD Code: I60.8 - Other nontraumatic subarachnoid hemorrhage (2) Subdural hematoma ICD Code: I62.00 - Nontraumatic subdural hemorrhage, unspecified (3) Intracranial aneurysm ICD Code: I67.1 - Cerebral aneurysm, nonruptured (4) Respiratory failure ICD Code: J96.90 - Respiratory failure, unspecified, unspecified whether with hypoxia or hypercapnia Status: Acute Assessment and Plan 56-year-old male presents with intracranial bleed, was transferred from [facility]. S/P left frontotemporal parietal craniotomy: Pt tolerating diet that was advanced yesterday. Still awaiting information (date/time) about bone flap surgery. Respiratory: Pt tolerating recent decannulation. Oxygen saturation noted to be 97-100 over past 24 hours. Hypotension: pt evidenced systolic blood pressure readings of 103, 105,106x2. Clonidine held and pressures improved. Will hold clonidine at this time. Monitor. If blood pressure improves will consider discontinuing Clonidine tomorrow. Status post left frontotemporal parietal craniectomy 10/08 for evacuation subdural hematoma/duraplasty. 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 Initiated 10/13. - Levetiracetam 500 mg per tube q12h. - 10/13 and 10/14 and 10/17) 10/19 left MCA territory vasospasm, status post successful verapamil treatment by IR with 20 mg verapamil - 10/17 CT brain - less hemisphere edema with herniation through left craniotomy site, now improved. - Dr. Perry/neurosurgery. Plan to replace bone flap in the future - Echocardiogram 10/14/16 revealed EF 40-45%. Septal hypokinesis. Moderate MR. Severe pulmonary hypertension with pulmonary artery pressures estimated 61 mmHg Limited Echo 11/06: LVEF 60-65%, Trivial mitral and tricuspid regurgitation, No vegetations noted. - Continue diltiazem's 90 mg by mouth every 6 hours and furosemide 20 mg daily - neurologically stable and doing well, and continued PT and rehabilitation. - PT, OT, speech following. Patient will need helmet when out of bed to chair. Helmet at bedside - Patient activity should be increased to out of bed to chair with helmet. Respiratory failure, S/P tracheostomy - S/p Trach Dr. Sullivan/Dr. Collazo 11/01 #8 [place] - CT angiogram chest/neck revealed right centrilobular bleeding likely source right bronchial artery. Repeat CT chest 11/29no visualization of active bleeding.- Resolved - 12/01 - embolization of right bronchial artery by IR- no further bleeding from tracheostomy - Redo trach 11/[address] Sullivan; down sized to uncuffed fenestrated 6 tracheostomy on 12/14 and now capped. - Albuterol/ipratropium aerosols every 6 hours with albuterol aerosols - Dr. Wilson plan is to downsize tube and probably considering tracheostomy removal - Tolerated tracheostomy capping. Has been decannulated. Tolerating room air. - Monitor Respiratory status Ileus- improving. Monitor Elevated transaminases Hyperammonemia Severe protein caloric malnutrition- continue with tube feeds as tolerated. - Currently on Glucerna 1.5 goal 60 cc an hour. Consult fabricator industrial furnace to review formula. - free water per G tube 200mL per tube q6h. - Lansoprazole 30 mg by tube daily for GI prophylaxis will change this to Pepcid - Continue bowel regimen - Reglan DC 12/13- stools amount decreased and thicker in consistency- continue to monitor - Continue PEG feeding. s/p PEG 11/12/16 - speech following for swallowing progress - Tube feeds only at night, patient has regular trach during the daytime, will order ensure pudding - Dietitian consulted to reevaluate tube feeding rate. Right occlusive subclavian, axillary and bilateral superficial cephalic thrombus - limited Echo to evaluate vegetation-neg. ID following - Digital Ischemia with necrosis involving all toes and left 2nd finger and right ringer finger- stable, conservative management - Digits have demarcated, allow auto amputation. Cardizem PO currently and 90 mg every 6 hours (for digital ischemia, Raynaud's) - Continue bacitracin twice a day to affected areas - Central line for IV access. We'll need to be started on systemic anticoagulation at some point however with recent embolization for hemoptysis holding full anticoagulation at this time. Stage 2 sacral ulcer - ABD dressing with [employer]- staff nurse makes sure to keep area dry - Turn position every 2 hours - Out of bed to chair activity Course of hospitalization complications Acute hypoxic Respiratory failure secondary to mucous plugging- Resolved Possible healthcare associated pneumonia, Septic Shock- resolved. ARDS - resolved Noncardiogenic/neurogenic pulmonary edema- resolved. Massive Hemoptysis - resolved Aspiration pneumonitis - resolved Cerebral Salt Wasting/SIADH-resolved now hypernatremic - Creatinine currently within normal limits -> resolved. - Monitor urine output Septic and cardiogenic shock- resolved. LV dysfunction secondary to SAH - persistent, now resolved Elevated troponin- secondary to SAH, unlikely to be ACS. - resolved. Pulmonary hypertension s/p PEA arrest 11/28 after ETT dislodgement, hypoxic arrest DVT prop SCD, no chemoprophylaxis secondary to risk for bleeding Full Code Discussed with patient, nurse, Angie Ferraro and Dr Perry from neurosurgery Discharge Planning Pending SSI. Placement will be in penitentiary facility or long-term care. CM following. S/p BONE FLAP 12/27/16. DISCUSSED WITH NEUROSURGERY. MONITOR IN ICU Problem Qualifiers (1) Respiratory failure: Qualified Codes: J96.00 - Acute respiratory failure, unspecified whether with hypoxia or hypercapnia Nancy Guardado MD Dec 28, 2016 15:56
[2016-12-28] MEDS: COLLAGENASE OINT 30 GM TUBE TOPICAL SCH (16:50)
[2016-12-28] MEDS ORDERED: IOHEXOL 350 MG/ML 10 ML VIAL (for RAD DIAG) IVCONTRAST ONE (17:46)
--- NOTE | 2016-12-28 19:25 | RADRPT ---
EXAM DATE/TIME: 12/28/2016 17:28 [place] COMPARISON: No previous studies available for comparison. INDICATIONS : Sores on feet and toes. IV CONTRAST: 85 cc Omnipaque 350 (iohexol) IV RADIATION DOSE: 2.02 CTDIvol (mGy) MEDICAL HISTORY : Seizures. Aneurysm, intracranial. SURGICAL HISTORY : Craniotomy. ENCOUNTER: Initial ACUITY: 4 - 6 days PAIN SCALE: 2/10 LOCATION: [place] TECHNIQUE: Volumetric scanning was performed using a multi-row detector CT scanner. The data was post processed with a variety of visualization algorithms including full volume maximum intensity projection, multi -planar sliding thin slab reformation, curved planar reformation, and surface rendering techniques. Using automated exposure control and adjustment of the mA and/or kV according to patient size, radiat ion dose was kept as low as reasonably achievable to obtain optimal diagnostic quality images. DICO M format image data is available electronically for review and comparison. FINDINGS: ABDOMINAL AORTA: There is atherosclerotic calcification seen throughout the arterial system. The lumen is smooth witho ut significant narrowing or aneurysmal dilation. The proximal celiac and superior mesenteric arterie s are patent and normal in diameter. There are solitary renal arteries bilaterally without gross abn ormality. BIFURCATION: Normal. RIGHT PELVIS: The right common iliac, internal iliac, and external iliac vessels are patent without luminal irregul arity. LEFT PELVIS: The left common iliac, internal iliac, and external iliac vessels are patent and without luminal irre gularity. RIGHT THIGH: The superficial femoral and profunda vessels are patent without luminal irregularity. LEFT THIGH: The superficial femoral and profunda vessels are patent without luminal irregularity. RIGHT KNEE: The distal femoral and popliteal arteries are patent without luminal irregularity. LEFT KNEE: The distal femoral and popliteal arteries are patent without luminal irregularity. RIGHT LEG: The trifurcation vessels are faintly opacified. LEFT LEG: The trifurcation vessels are faintly opacified. OTHER: There is atelectasis or consolidation at the posterior lower lobes bilaterally being more prominent o n the right. There is a G-tube. CONCLUSION: Atherosclerotic calcification seen throughout the arterial system without an area of significant sten osis. The trifurcation vessels are only faintly opacified. Yosvany Alfaro MD on December 28, 2016 at 19:17 Board Certified Radiologist. This report was verified electronically.
[2016-12-28] MEDS: MELATONIN 5 MG TAB PO SCH (21:36)
[2016-12-29] VITALS (12 sets, daily range): BP systolic 94–118; BP diastolic 61–74; PULSE 79–105; RESP 12–18; TEMP 98.5–99.4; O2SAT 96–98
[2016-12-29] MEDS: ACETAMINOPHEN/HYDROcodone 325 MG/10 MG TAB PO PRN ×3 (00:30→18:40)
[2016-12-29] MEDS: DILTIAZEM HCL 90 MG TAB PO SCH ×4 (00:30→17:24)
[2016-12-29] MEDS: cloNIDine HCL 0.1 MG TAB PO SCH ×3 (01:37→17:24)
[2016-12-29] MEDS: NS + KCL 20 MEQ INJ 1,000 ML IV SCH ×3 (03:17→15:02)
[2016-12-29] MEDS: CHLORHEXIDINE GLUCONATE 2 % 1 PACK (2 CLOTHS) TOP SCH (03:54)
[2016-12-29] MEDS: CHLORHEXIDINE 0.12% (ORAL KIT) 15 ML CUP MT SCH ×2 (08:00→20:00)
--- NOTE | 2016-12-29 08:04 | HHI.PR ---
Subjective Remarks This is in ICU. He was up in the chair today. Complaints of headache at the surgical site. No vision change. No motor deficit. Denies nausea or vomiting. No fever or chills. No lower extremity edema worsening on the right side. Objective Vitals Vital Signs Date Time Temp Pulse Resp B/P (MAP) Pulse Ox O2 Delivery O2 Flow Rate FiO2 12/29/16 06:00 79 12/29/16 04:00 99.4 82 13 94/61 (72) 96 12/29/16 04:00 82 12/29/16 02:00 86 12/29/16 00:00 92 12/29/16 00:00 98.5 92 16 103/68 (80) 98 12/28/16 22:00 86 12/28/16 20:24 96 12/28/16 20:00 98.3 80 14 106/70 (82) 95 12/28/16 20:00 80 12/28/16 16:00 98.4 74 14 101/68 (79) 97 12/28/16 12:00 98.6 74 13 111/73 (86) 98 I/O 12/28/16 12/28/16 12/28/16 12/29/16 12/29/16 12/29/16 07:00 15:00 23:00 07:00 15:00 23:00 Intake Total 891 ml 2334 ml 569 ml Output Total 1180 ml 1000 ml 1000 ml Balance -289 ml 1334 ml -431 ml Intake Oral 100 ml 880 ml IV Total 791 ml 1050 ml Tube Feeding 344 ml 469 ml Tube Irrigant 60 ml 100 ml Output Urine Total 1150 ml 1000 ml 1000 ml Drainage Total 30 ml 0 ml # Bowel Movements 0 0 Result Diagram: 12/28/16 0446 12/28/16 0446 Imaging Last Impressions Carotid Artery Ultrasound 12/27/16 0000 Signed Impressions: Service Date/Time: Tuesday, December 27, 2016 17:19 - CONCLUSION: Mild plaque at the carotid bulb regions bilaterally without a significant stenosis seen. Yosvany Alfaro MD Aorta w/Runoff CTA 12/27/16 0000 Signed Impressions: Service Date/Time: Wednesday, December 28, 2016 17:28 - CONCLUSION: Atherosclerotic calcification seen throughout the arterial system without an area of significant stenosis. The trifurcation vessels are only faintly opacified. Yosvany Alfaro MD Modified Barium Swallow 12/23/16 0000 Signed Impressions: Service Date/Time: Friday, December 23, 2016 09:11 - CONCLUSION: Negative for aspiration.. Remington Woodward MD FACR Chest X-Ray 12/04/16 491 Signed Impressions: Service Date/Time: Sunday, December 04, 2016 18:55 - CONCLUSION: 1. Placement of left central line tip in superior vena cava. No pneumothorax. Mild basilar airspace disease. Small right effusion. Gurwinder Root MD Upper Extremity Ultrasound 12/04/16 0000 Signed Impressions: Service Date/Time: Sunday, December 04, 2016 15:37 - CONCLUSION: 1. Positive for occlusive deep venous thrombosis in the right axillary and subclavian vein. Occlusive superficial thrombus in bilateral cephalic veins. Gurwinder Root MD Angiography 12/01/16 0000 Signed Impressions: Service Date/Time: November 14:02 - CONCLUSION: 1. Right side up on her hemorrhage with angiography of the right bronchial artery revealing no source of active hemorrhage. Empiric embolization was performed. Santos Crockett Jr., MD Chest CT 11/28/16 0000 Signed Impressions: Service Date/Time: Tuesday, November 29, 2016 05:13 - CONCLUSION: 1. Patchy alveolar disease characteristic of edema or pneumonia. 2. Severe emphysema 3. Gastrojejunostomy tube looped in the stomach Harvey Morejon MD Chest/Thorax CTA 11/26/16 0000 Signed Impressions: Service Date/Time: Saturday, November 26, 2016 20:18 - CONCLUSION: 1. Extensive filling defects within the right central bronchial tree characteristic of endobronchial hemorrhage. 2. Consolidating airspace disease in the right upper lobe and right lower lobe characteristic of hemorrhage and post obstructive lung consolidation. 3. Right bronchial artery is identified extending to the central right bronchial region 4. Advanced COPD. Nasir Amanda MD Abdomen X-Ray 11/19/16599 Signed Impressions: Service Date/Time: Saturday, November 19, 2016 02:44 - CONCLUSION: Unchanged bowel gas pattern potentially relating to an ileus. Santos Crockett Jr., MD Transcranial Doppler Study Complete 10/20/16599 Signed Impressions: Service Date/Time: October 07:54 - CONCLUSION: Slight interval elevation of flow velocity measurements and ratio on the left Yosvany Polk MD Liver Ultrasound 10/19/16 0000 Signed Impressions: Service Date/Time: Wednesday, October 19, 2016 11:20 - CONCLUSION: 1. Sludge filled gallbladder with thickened wall. 2. Moderate size bilateral pleural effusions and mild upper abdominal ascites. Santos Vazquez MD Cerebral Arteriogram 10/19/16 0000 Signed Impressions: Service Date/Time: Wednesday, October 19, 2016 12:47 - CONCLUSION: Uncomplicated cerebral arteriography with spasmolytic therapy as described in detail above. Yosvany Polk MD Head CT 10/17/16 0000 Signed Impressions: Service Date/Time: Monday, October 17, 2016 15:06 - CONCLUSION: Ventricles are slightly larger without ventriculostomy. Edema in the left hemisphere the brain herniating through the operative site. Remington Woodward MD FACR Infusion Non-thrombolysis 10/14/16 1103 Signed Impressions: Service Date/Time: Friday, October 14, 2016 10:21 - CONCLUSION: 1. Uncomplicated infusion for spasmolysis Harvey Morejon MD Neck CTA 10/07/16 0000 Signed Impressions: Service Date/Time: Friday, October 07, 2016 15:03 - CONCLUSION: 1. Mild carotid bulb atherosclerotic calcification bilaterally. However, no significant stenosis is present in either internal carotid artery. 2. Paranasal sinus mucoperiosteal thickening. 3. Please refer to brain CTA report for description of the intracranial findings. Yosvany Ramirez MD Head CTA 10/07/16 0000 Signed Impressions: Service Date/Time: Friday, October 07, 2016 15:03 - CONCLUSION: 1. 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 2. Large left subdural hematoma measuring 1.3 cm in depth with a significant, 1.6 cm left to right subfalcine shift. Joni Shelton MD Objective Remarks GENERAL: Awake and alert, oriented, appears in nad. SKIN: All toes with digital ischemia, left 2nd finger and right ringer finger with distal digit ischemia. Stage 1-2 decubitus ulcer NECK: Bandage noted at neck in covering trach site c/d/i. CARDIOVASCULAR: Regular rate and rhythm. RESPIRATORY: No accessory muscle use. Clear to auscultation. Breath sounds equal bilaterally. GASTROINTESTINAL: Abdomen soft, non-tender, nondistended. Soft PEG in place, site c/d/i MUSCULOSKELETAL: Extremities without clubbing, cyanosis, or edema. No obvious deformities. Bilateral radial and DP,PT ++ NEUROLOGICAL: Alert and oriented x3, pleasant. Speech IS soft with short sentences. Procedures 10/13 Four-vessel cerebral angiography with verapamil treatment of vasospasm Status post left frontotemporal parietal craniectomy 10/08 for evacuation subdural hematoma/duraplasty. 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 parietal cranioplasty with replacement of skull flap by Dr Perry neurosurgery on 12/27/16 Date of Insertion: Dec 04, 2016 Line: Central Venous Catheter Side: Left Location: Internal, Jugular A/P Problem List: (1) Subarachnoid hemorrhage due to ruptured aneurysm ICD Code: I60.8 - Other nontraumatic subarachnoid hemorrhage (2) Subdural hematoma ICD Code: I62.00 - Nontraumatic subdural hemorrhage, unspecified (3) Intracranial aneurysm ICD Code: I67.1 - Cerebral aneurysm, nonruptured (4) Respiratory failure ICD Code: J96.90 - Respiratory failure, unspecified, unspecified whether with hypoxia or hypercapnia Status: Acute Assessment and Plan 56-year-old male presents with intracranial bleed, was transferred from [facility]. S/P left frontotemporal parietal craniotomy: Pt tolerating diet that was advanced yesterday. Still awaiting information (date/time) about bone flap surgery. Respiratory: Pt tolerating recent decannulation. Oxygen saturation noted to be 97-100 over past 24 hours. Hypotension: pt evidenced systolic blood pressure readings of 103, 105,106x2. Clonidine held and pressures improved. Will hold clonidine at this time. Monitor. If blood pressure improves will consider discontinuing Clonidine tomorrow. Status post left frontotemporal parietal craniectomy 10/08 for evacuation subdural hematoma/duraplasty. 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 Initiated 10/13. - Levetiracetam 500 mg per tube q12h. - 10/13 and 10/14 and 10/17) 10/19 left MCA territory vasospasm, status post successful verapamil treatment by IR with 20 mg verapamil - 10/17 CT brain - less hemisphere edema with herniation through left craniotomy site, now improved. - Dr. Perry/neurosurgery. Plan to replace bone flap in the future - Echocardiogram 10/14/16 revealed EF 40-45%. Septal hypokinesis. Moderate MR. Severe pulmonary hypertension with pulmonary artery pressures estimated 61 mmHg Limited Echo 11/06: LVEF 60-65%, Trivial mitral and tricuspid regurgitation, No vegetations noted. - Continue diltiazem's 90 mg by mouth every 6 hours and furosemide 20 mg daily - neurologically stable and doing well, and continued PT and rehabilitation. - PT, OT, speech following. Patient will need helmet when out of bed to chair. Helmet at bedside - Patient activity should be increased to out of bed to chair with helmet. Respiratory failure, S/P tracheostomy - S/p Trach Dr. Sullivan/Dr. Collazo 11/01 #8 [place] - CT angiogram chest/neck revealed right centrilobular bleeding likely source right bronchial artery. Repeat CT chest 11/29no visualization of active bleeding.- Resolved - 12/01 - embolization of right bronchial artery by IR- no further bleeding from tracheostomy - Redo trach 11/[address] Sullivan; down sized to uncuffed fenestrated 6 tracheostomy on 12/14 and now capped. - Albuterol/ipratropium aerosols every 6 hours with albuterol aerosols - Dr. Wilson plan is to downsize tube and probably considering tracheostomy removal - Tolerated tracheostomy capping. Has been decannulated. Tolerating room air. - Monitor Respiratory status Patient with lower extremity edema at this time will do ultrasound Doppler to rule out DVT this patient with high risk of bleeding and is not chemoprophylaxis at this time. Ileus- improving. Monitor Elevated transaminases Hyperammonemia Severe protein caloric malnutrition- continue with tube feeds as tolerated. - Currently on Glucerna 1.5 goal 60 cc an hour. Consult home aide to review formula. - free water per G tube 200mL per tube q6h. - Lansoprazole 30 mg by tube daily for GI prophylaxis will change this to Pepcid - Continue bowel regimen - Reglan DC 12/13- stools amount decreased and thicker in consistency- continue to monitor - Continue PEG feeding. s/p PEG 11/12/16 - speech following for swallowing progress - Tube feeds only at night, patient has regular trach during the daytime, will order ensure pudding - Dietitian consulted to reevaluate tube feeding rate. Right occlusive subclavian, axillary and bilateral superficial cephalic thrombus - limited Echo to evaluate vegetation-neg. ID following - Digital Ischemia with necrosis involving all toes and left 2nd finger and right ringer finger- stable, conservative management - Digits have demarcated, allow auto amputation. Cardizem PO currently and 90 mg every 6 hours (for digital ischemia, Raynaud's) - Continue bacitracin twice a day to affected areas - Central line for IV access. We'll need to be started on systemic anticoagulation at some point however with recent embolization for hemoptysis holding full anticoagulation at this time. - Consult vascular surgeon . Seen by Dr Valente plan for CTA Ao runoff Stage 2 sacral ulcer - ABD dressing with [employer]- staff nurse makes sure to keep area dry - Turn position every 2 hours - Out of bed to chair activity Course of hospitalization complications Acute hypoxic Respiratory failure secondary to mucous plugging- Resolved Possible healthcare associated pneumonia, Septic Shock- resolved. ARDS - resolved Noncardiogenic/neurogenic pulmonary edema- resolved. Massive Hemoptysis - resolved Aspiration pneumonitis - resolved Cerebral Salt Wasting/SIADH-resolved now hypernatremic - Creatinine currently within normal limits -> resolved. - Monitor urine output Septic and cardiogenic shock- resolved. LV dysfunction secondary to SAH - persistent, now resolved Elevated troponin- secondary to SAH, unlikely to be ACS. - resolved. Pulmonary hypertension s/p PEA arrest 11/28 after ETT dislodgement, hypoxic arrest DVT prop SCD, no chemoprophylaxis secondary to risk for bleeding. Patient with lower extremity edema at this time will do ultrasound Doppler to rule out DVT this patient with high risk of bleeding and is not chemoprophylaxis at this time. Full Code Discussed with patient, nurse, Angie Ferraro and Dr Perry from neurosurgery Discharge Planning Pending SSI. Placement will be in correction facility or long-term care. CM following. S/p left cranioplasty 12/27/16. DISCUSSED WITH NEUROSURGERY. Problem Qualifiers (1) Respiratory failure: Qualified Codes: J96.00 - Acute respiratory failure, unspecified whether with hypoxia or hypercapnia Nancy Guardado MD Dec 29, 2016 08:04
[2016-12-29] MEDS: SODIUM CHLORIDE 0.9% FLUSH 5 ML FLUSH IVF SCH ×2 (09:00→20:10)
[2016-12-29] MEDS: PANTOPRAZOLE SODIUM 40 MG VIAL IVP SCH (09:00)
[2016-12-29] MEDS: BENEPROTEIN POWDER 1 PACK G-TUBE SCH ×3 (09:00→17:24)
[2016-12-29] MEDS: LACTOBACILLUS ACIDOPHILUS TAB PO SCH ×3 (10:31→17:23)
[2016-12-29] MEDS: levETIRAcetam 500 MG/5 ML UDC PEG SCH ×2 (10:31→20:09)
[2016-12-29] MEDS: FAMOTIDINE 20 MG TAB PO SCH ×2 (10:31→20:10)
[2016-12-29] MEDS: DOCUSATE SODIUM 100 MG CAP PO SCH ×2 (10:31→20:10)
[2016-12-29] MEDS: ASCORBIC ACID 500 MG TAB PO SCH ×2 (10:31→20:10)
[2016-12-29] MEDS: PANTOPRAZOLE SOD 40 MG DELAYED RELEASE TAB PO SCH (10:32)
[2016-12-29] MEDS: ARTIFICIAL TEARS OPTH SOLN 15 ML BTL EACH EYE SCH ×3 (10:35→17:24)
[2016-12-29] MEDS: COLLAGENASE OINT 30 GM TUBE TOPICAL SCH (10:36)
[2016-12-29] MEDS: BACITRACIN TOP OINT 15 GM TUBE TOPICAL SCH ×2 (10:36→20:10)
[2016-12-29] MEDS: SODIUM CHLORIDE 0.9% FLUSH 10 ML FLUSH IV FLUSH SCH (10:40)
[2016-12-29] MEDS: FERROUS SULFATE 325 MG (65 MG ELEMENTAL IRON) TAB PO SCH ×2 (12:40→17:23)
--- NOTE | 2016-12-29 13:43 | RADRPT ---
EXAM DATE/TIME: 12/29/2016 13:07 [facility] COMPARISON: No previous studies available for comparison. INDICATIONS : Bilateral lower extremity edema. MEDICAL HISTORY : Hypertension. Subarachnoid hemorrhage. Respiratory disorder. SURGICAL HISTORY : Left craniotomy. Ventriculostomy catheter. ENCOUNTER: Initial ACUITY: 1 day PAIN SCORE: 0/10 LOCATION: Bilateral legs. TECHNIQUE: Venous ultrasound of the left and right leg was performed from the inguinal ligament to the proximal calf. Real-time, color Doppler and spectral tracing, compression and augmentation techniques were us ed. FINDINGS: RIGHT LEG: There is normal compressibility of the deep venous system from the inguinal region to the proximal ca lf. No echogenic clot is seen in the lumen of the common femoral, femoral, popliteal, and posterior tibial veins. There is a normal response of the venous system to proximal and distal augmentation an d respiration. LEFT LEG: There is normal compressibility of the deep venous system from the inguinal region to the proximal ca lf. No echogenic clot is seen in the lumen of the common femoral, femoral, popliteal, and posterior tibial veins. There is a normal response of the venous system to proximal and distal augmentation an d respiration. CONCLUSION: No sonographic or Doppler findings of deep venous thrombosis. Joni Shelton MD on December 29, 2016 at 13:41 Board Certified Radiologist. This report was verified electronically.
--- NOTE | 2016-12-29 14:07 | PD.CAR.PN ---
CVT Progress Note Subjective/Hospital Course: 12/27/16 The patients who are admitted to hospital for multiple medical problems and developed sepsis resulting in need for vasopressors will occasionally develop acral gangrene of the extremities. This can be caused by either application of vasopressors for prolonged period of time, superimposed preexisting peripheral vascular disease like Greyson-Synephrine or vasopressin or the condition may be exacerbated by heparin induced thrombocytopenia, disseminated intravascular coagulation which in essence is not the bleeding but a clotting problem and other sequela of sepsis which cause activation of various inflammatory factors that the in correlation with the coagulation factors will cause gangrene and ischemic tissue damage even internal organs. In this gentleman this is probably combination of all of the above. At this point I will work the patient up for peripheral vascular disease just to have a baseline study make sure that when the patient undergoes possible amputations of his distal toes, this actually has a chance of healing. I will continue to follow the patient with you. 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 Ultrasound the carotids is negative CTA with runoff can be done any time probably next few days and should serve as a baseline study If patient has unreconstructable disease that would potentially impair healing of the amputation sites once the feet necrosis is attended to, then he may be subjected to perhaps angioplasty and stenting On the other hand every procedure or intervention we do has to be weighed against the patient's poor clinical status Will continue to follow nothing to add at this time 12/29/16 Patient multiple medical problems and gangrene of the feet and hands based on previous sepsis and vasoactive drugs CTA with runoff preform to get a baseline study in face of pending amputations or auto amputations Well patient has significant calcifications of his vessels he does not have a flow-limiting stenosis either in the aorta inflow or the outflow vessels With a low ejection fraction visualization of the vessels beyond trifurcation is limited but patient does not have visible hemodynamically significant occlusive changes Therefore from the vascular point there is no mechanical vascular endovascular procedure that would improve the patient's flow Objective: Vital Signs Date Time Temp Pulse Resp B/P (MAP) Pulse Ox O2 Delivery O2 Flow Rate FiO2 12/29/16 12:00 99.2 105 14 118/66 (83) 12/29/16 12:00 105 12/29/16 10:00 88 12/29/16 08:00 99.2 91 12 106/70 (82) 96 12/29/16 08:00 91 12/29/16 06:00 79 12/29/16 04:00 99.4 82 13 94/61 (72) 96 12/29/16 04:00 82 12/29/16 02:00 86 12/29/16 00:00 92 12/29/16 00:00 98.5 92 16 103/68 (80) 98 12/28/16 22:00 86 12/28/16 20:24 96 12/28/16 20:00 98.3 80 14 106/70 (82) 95 12/28/16 20:00 80 12/28/16 16:00 98.4 74 14 101/68 (79) 97 Result Diagram: 12/28/16 0446 12/28/16 0446 Rosanne Valente MD Dec 29, 2016 14:07
[2016-12-29] MEDS: MORPHINE SULFATE 4 MG/ML INJ IV PUSH PRN (15:05)
--- NOTE | 2016-12-29 15:24 | HHI.NSPN ---
(Malinda Hines) Note Status Status: Progress Note (Malinda Hines) Interval History Interval History This is a 56-year-old male brought to the emergency room as an emergency transfer from another institution with history of intracranial bleed. He was transferred from [facility]. Apparently the patient said that patient earlier this morning was coming down the stairs when he started feeling some left-sided weakness and numbness. He called 911 and by the time EMS arrived they detected severe neurological deficits and called a stroke alert. No seizure activity reported. No tongue biting. No incontinence of stool or urine. Patient was taken to [facility]. Apparently he was not able to move his right side . When patient arrived his mental status started to decline and he was intubated emergently in the ER for airway protection. A CT scan of the head showed extensive subarachnoid bleed. In addition he had a sizable subdural hematoma. He was brought emergently on the ventilator. He was on a propofol drip and well sedated. GCS was 3. He was on a Cardene drip and blood pressure was in the 120s. Neurosurgical consultation was requested 10/08. POD #1 Open eyes and follows commands 10/12. Doing very well. Neurologically stable. Patient is in restraints secondary to pulling out his Maldonado multiple times. 10/13. Much more lethargic, difficult to speak with new aphasia 10/14. Improved after angiography. Today he developed new onset of aphasia and right hemiparesis 10/17. Intubated and sedated. Lung infiltrates dense bilaterally, reflected in shunting and problems with oxygenation. 10/18: underwent endovascular verapamil infusion to left MCA vasospasm yesterday. TCD today pending. left flap pak today. Intubated and sedated. continues to be on multiple pressors. on 3% NS. 10/19: currently unstable for travel for repeat CT Head this am. no changes with neuro checks, remains intubated, sedated. pupils equal. continues on multiple pressors support 10/20: intubated and mildly sedated. remains on multiple pressors. pneumonia worsening. TCD this am reports slight increase in flow velocity to left, he underwent cerebral angiography yesterday with endovascular verapamil infusion right ICA. 10/21: intubated, sedated on fentanyl and versed. On Nimbex. 10/25: off Nimbex. Mildly opening eyes today. 10/26: opening eyes more today, ?focusing 10/27: intubated, minimal eye opening. not following commands. 10/28: appears more awake, following commands, focusing and tracked. shook head no when asked if doing ok. 10/31: remains intubated, tracking more today, not following with extremities 11/01: nursing reports intermittently follows commands to upper extremities. for tracheostomy today. 11/02: s/p tracheostomy, smiling today, following commands. 11/03: smiling and nodding appropriately. PT at bedside. 11/04: mouthing some words today, no acute events overnight 11/07: doing well, left craniectomy site well decompressed. febrile, ID consulted. 11/08: no changes to neuro examination, low grade fevers again this morning 12/22: reconsulted for evaluation for cranioplasty 12/26: for left cranioplasty tomorrow morning. no new complaints, dw Dr. Guardado , medically cleared for surgery. 12/28: s/p left cranioplasty 12/27/16, doing well, eating his breakfast, c/o of mild surgical pain. 12/29: continues to do well, surgical pain a bit better today (Malinda Hines) Labs, Micro, & Vital Signs Results Date Time Temp Pulse Resp B/P (MAP) Pulse Ox O2 Delivery O2 Flow Rate FiO2 12/29/16 12:00 99.2 105 14 118/66 (83) 12/29/16 12:00 105 12/29/16 10:00 88 12/29/16 08:00 99.2 91 12 106/70 (82) 96 12/29/16 08:00 91 12/29/16 06:00 79 12/29/16 04:00 99.4 82 13 94/61 (72) 96 12/29/16 04:00 82 12/29/16 02:00 86 12/29/16 00:00 92 12/29/16 00:00 98.5 92 16 103/68 (80) 98 12/28/16 22:00 86 12/28/16 20:24 96 12/28/16 20:00 98.3 80 14 106/70 (82) 95 12/28/16 20:00 80 12/28/16 16:00 98.4 74 14 101/68 (79) 97 Constitutional Vital Signs Date Time Temp Pulse Resp B/P (MAP) Pulse Ox O2 Delivery O2 Flow Rate FiO2 12/29/16 12:00 99.2 105 14 118/66 (83) 12/29/16 12:00 105 12/29/16 10:00 88 12/29/16 08:00 99.2 91 12 106/70 (82) 96 12/29/16 08:00 91 12/29/16 06:00 79 12/29/16 04:00 99.4 82 13 94/61 (72) 96 12/29/16 04:00 82 12/29/16 02:00 86 12/29/16 00:00 92 12/29/16 00:00 98.5 92 16 103/68 (80) 98 12/28/16 22:00 86 12/28/16 20:24 96 12/28/16 20:00 98.3 80 14 106/70 (82) 95 12/28/16 20:00 80 12/28/16 16:00 98.4 74 14 101/68 (79) 97 (Malinda Hines) Physical Exam Surgical incision is covered with clean, dry kerlix dressing mildly conversing, voice is soft alert, smiling, no acute distress CN: pupils equal, facial motor symmetric Motor: moves all four extremities (Malinda Hines) Medications Current Medications Current Medications Medications (Trade) Dose Ordered Sig/Adali Route PRN Reason Start Time Stop Time Status Last Admin Dose Admin Heparin Sodium (Porcine) (Heparin Inj) 5,000 units Q8HR SQ 10/14/16 22:00 Future Hold 11/13/16 21:20 Artificial Tears (Tears Naturale Opth Soln) 1 drop TID EACH EYE 10/19/16 13:00 12/29/16 10:35 Albuterol Sulfate (Albuterol Neb) 2.5 mg Q2HR NEB PRN INH SOB/WHEEZING 10/19/16 09:45 11/22/16 22:09 Miscellaneous Information 1 Q361D XX 9/6/17 09:45 Chlorhexidine Gluconate (Chlorhexidine 2% Cloth) Taper DAILY@04 TOP 10/20/16 04:00 10/16/17 03:59 12/24/16 04:00 Chlorhexidine Gluconate (Chlorhexidine 2% Cloth) 3 pack UNSCH PRN TOP HYGIENIC CARE 10/19/16 09:45 Melatonin (Melatonin) 5 mg HS PO 11/01/16 21:00 12/28/16 21:36 Diltiazem HCl (Cardizem) 90 mg Q6HR PO 11/02/16 12:00 12/29/16 05:19 Bacitracin (Baciguent Oint) 1 applic Q12HR TOPICAL 11/18/16 11:00 12/29/16 10:36 Protein (Beneprotein Powder) 1 pack TID G-TUBE 11/19/16 09:00 12/29/16 12:40 Chlorhexidine Gluconate (Peridex 0.12% Liq) 15 ml BID@08,20 MT 11/26/16 20:00 12/28/16 21:36 Collagenase (Santyl Oint) 1 applic DAILY TOPICAL 11/30/16 12:00 12/29/16 10:36 Racepinephrine (Racepinephrine 2.25% Neb) 0.5 ml Q4HR NEB PRN NEB hemoptysis/stridor 12/03/16 15:00 Nitroglycerin (Nitroglycerin 2% Oint) 2 inch Q6H PRN TOPICAL SBP>160, DBP>90 12/04/16 09:15 Clonidine (Catapres) 0.1 mg Q8H PO 12/04/16 10:00 12/27/16 18:18 Enalaprilat (Vasotec Inj) 1.25 mg Q6H PRN IV PUSH SBP>160, DBP>90 12/04/16 09:15 Sodium Chloride (NS Flush) DAILY IV FLUSH 12/04/16 18:00 12/29/16 10:40 Sodium Chloride (NS Flush) UNSCH PRN IV FLUSH SEE PROTOCOL 12/04/16 18:00 Loperamide HCl (Imodium Liq) 2 mg UNSCH PRN PO DIARRHEA 12/14/16 10:45 Lactobacillus Acidophilus (Lactinex) 1 tab TID PO 12/14/16 18:00 12/29/16 12:39 Famotidine (Pepcid) 20 mg BID PO 12/16/16 21:00 12/29/16 10:31 Ferrous Sulfate (Ferrous Sulfate) 325 mg BID@ PO 12/22/16 12:00 12/29/16 12:40 Ascorbic Acid (Vitamin C) 500 mg BID PO 12/22/16 09:00 12/29/16 10:31 Potassium Chloride/Sodium Chloride 1,000 ml @ 100 mls/hr Q10H IV 12/27/16 11:17 12/29/16 15:02 IV Flush (NS Flush) 2 ml UNSCH PRN IVF FLUSH AFTER USING IV ACCESS 12/27/16 11:30 IV Flush (NS Flush) 2 ml BID IVF 12/27/16 21:00 12/28/16 21:36 Bisacodyl (Dulcolax Supp) 10 mg DAILY PRN RECTAL CONSTIPATION 12/27/16 11:30 Docusate Sodium (Colace) 100 mg BID PO 12/27/16 21:00 12/29/16 10:31 Pantoprazole Sodium (Protonix) 40 mg DAILY PO 12/28/16 09:00 12/29/16 10:32 Pantoprazole Sodium (Protonix Inj) 40 mg DAILY IVP 12/28/16 09:00 Ondansetron HCl (Zofran Inj) 4 mg Q6H PRN IV PUSH NAUSEA OR VOMITING 12/27/16 11:30 Potassium Chloride 100 ml @ 50 mls/hr UNSCH PRN IV POTASSIUM LESS THAN 4 12/27/16 11:30 Magnesium Sulfate 4 gm/Sodium Chloride 108 ml @ 108 mls/hr UNSCH PRN IV MAGNESIUM LESS THAN 2 12/27/16 11:30 Acetaminophen/ Hydrocodone Bitart ([place] 10-325 Mg) 1 tab Q4H PRN PO PAIN 1-5 WHEN TOLERATING PO 12/27/16 11:30 12/29/16 12:39 Acetaminophen/ Hydrocodone Bitart ([place] 10-325 Mg) 2 tab Q4H PRN PO PAIN 6-10 WHEN TOLERATING PO 12/27/16 11:30 12/28/16 18:04 Morphine Sulfate (Morphine Inj) 2 mg Q2H PRN IV PUSH PAIN SCALE 1 TO 6 12/27/16 11:30 12/29/16 15:05 Morphine Sulfate (Morphine Inj) 4 mg Q2H PRN IV PUSH PAIN SCALE 7 TO 10 12/27/16 11:30 12/28/16 18:00 Acetaminophen (Tylenol) 650 mg Q4H PRN PO TEMPERATURE > 101.5 F 12/27/16 11:30 Calcium Gluconate 1 gm/Sodium Chloride 110 ml @ 110 mls/hr UNSCH PRN IV SEE LABEL COMMENT 12/27/16 12:00 Levetriacetam (Keppra Liq) 500 mg Q12HR PEG 12/27/16 21:00 12/29/16 10:31 (Malinda Hines) Medical Decision Making MDM Remarks 56 y/o male with subarachnoid hemorrhage, status post coiling posterior communicating artery aneurysm. s/p left decompressive craniectomy. Left craniectomy site now well decompressed. s/p left cranioplasty with replacement of his bone flap on 12/27/16, doing well post-op (Malinda Hines) Plan Plan Remarks cont neuro checks, clear to transfer out of unit back to 5N near nrs station cont therapy and rehab efforts, ok OOB activities with assistance (Malinda Hines) Attending Statement The exam, history, and the medical decision-making described in the above note were completed with the assistance of the mid-level provider. I reviewed and agree with the findings presented. I attest that I had a [id number] encounter with the patient on the same day, and personally performed and documented my assessment and findings in the medical record. (George Perry MD) Malinda Hines Dec 29, 2016 15:24 George Perry MD Jan 03, 2017 14:45
[2016-12-29] MEDS: MELATONIN 5 MG TAB PO SCH (20:10)
[2016-12-30] VITALS (11 sets, daily range): BP systolic 98–109; BP diastolic 62–67; PULSE 76–93; RESP 12–18; TEMP 98.2–98.8; O2SAT 96
[2016-12-30] MEDS: DILTIAZEM HCL 90 MG TAB PO SCH ×4 (01:12→18:00)
[2016-12-30] MEDS: cloNIDine HCL 0.1 MG TAB PO SCH ×3 (02:00→18:00)
[2016-12-30] MEDS: CHLORHEXIDINE GLUCONATE 2 % 1 PACK (2 CLOTHS) TOP SCH (04:00)
[2016-12-30] MEDS: NS + KCL 20 MEQ INJ 1,000 ML IV SCH ×2 (05:45→11:57)
[2016-12-30] MEDS: ACETAMINOPHEN/HYDROcodone 325 MG/10 MG TAB PO PRN ×2 (05:54→14:24)
[2016-12-30] MEDS: CHLORHEXIDINE 0.12% (ORAL KIT) 15 ML CUP MT SCH ×2 (08:00→20:00)
[2016-12-30] MEDS: PANTOPRAZOLE SOD 40 MG DELAYED RELEASE TAB PO SCH (08:48)
[2016-12-30] MEDS: levETIRAcetam 500 MG/5 ML UDC PEG SCH ×2 (08:48→22:08)
[2016-12-30] MEDS: LACTOBACILLUS ACIDOPHILUS TAB PO SCH ×3 (08:48→18:30)
[2016-12-30] MEDS: ASCORBIC ACID 500 MG TAB PO SCH ×2 (08:49→22:08)
[2016-12-30] MEDS: FAMOTIDINE 20 MG TAB PO SCH ×2 (08:49→22:08)
[2016-12-30] MEDS: DOCUSATE SODIUM 100 MG CAP PO SCH ×2 (08:49→22:08)
[2016-12-30] MEDS: COLLAGENASE OINT 30 GM TUBE TOPICAL SCH (08:50)
[2016-12-30] MEDS: ARTIFICIAL TEARS OPTH SOLN 15 ML BTL EACH EYE SCH ×3 (08:50→18:00)
[2016-12-30] MEDS: BACITRACIN TOP OINT 15 GM TUBE TOPICAL SCH ×2 (08:50→21:00)
[2016-12-30] MEDS: SODIUM CHLORIDE 0.9% FLUSH 10 ML FLUSH IV FLUSH SCH (08:54)
[2016-12-30] MEDS: SODIUM CHLORIDE 0.9% FLUSH 5 ML FLUSH IVF SCH ×2 (08:54→21:55)
[2016-12-30] MEDS: PANTOPRAZOLE SODIUM 40 MG VIAL IVP SCH (08:54)
[2016-12-30] MEDS: BENEPROTEIN POWDER 1 PACK G-TUBE SCH ×3 (08:55→18:30)
--- NOTE | 2016-12-30 09:10 | HHI.NSPN ---
(Malinda Hines) Note Status Status: Progress Note (Malinda Hines) Interval History Interval History This is a 56-year-old male brought to the emergency room as an emergency transfer from another institution with history of intracranial bleed. He was transferred from [facility] and [facility]. Apparently the patient said that patient earlier this morning was coming down the stairs when he started feeling some left-sided weakness and numbness. He called 911 and by the time EMS arrived they detected severe neurological deficits and called a stroke alert. No seizure activity reported. No tongue biting. No incontinence of stool or urine. Patient was taken to [facility]. Apparently he was not able to move his right side . When patient arrived his mental status started to decline and he was intubated emergently in the ER for airway protection. A CT scan of the head showed extensive subarachnoid bleed. In addition he had a sizable subdural hematoma. He was brought emergently on the ventilator. He was on a propofol drip and well sedated. GCS was 3. He was on a Cardene drip and blood pressure was in the 120s. Neurosurgical consultation was requested 10/08. POD #1 Open eyes and follows commands 10/12. Doing very well. Neurologically stable. Patient is in restraints secondary to pulling out his Maldonado multiple times. 10/13. Much more lethargic, difficult to speak with new aphasia 10/14. Improved after angiography. Today he developed new onset of aphasia and right hemiparesis 10/17. Intubated and sedated. Lung infiltrates dense bilaterally, reflected in shunting and problems with oxygenation. 10/18: underwent endovascular verapamil infusion to left MCA vasospasm yesterday. TCD today pending. left flap pak today. Intubated and sedated. continues to be on multiple pressors. on 3% NS. 10/19: currently unstable for travel for repeat CT Head this am. no changes with neuro checks, remains intubated, sedated. pupils equal. continues on multiple pressors support 10/20: intubated and mildly sedated. remains on multiple pressors. pneumonia worsening. TCD this am reports slight increase in flow velocity to left, he underwent cerebral angiography yesterday with endovascular verapamil infusion right ICA. 10/21: intubated, sedated on fentanyl and versed. On Nimbex. 10/25: off Nimbex. Mildly opening eyes today. 10/26: opening eyes more today, ?focusing 10/27: intubated, minimal eye opening. not following commands. 10/28: appears more awake, following commands, focusing and tracked. shook head no when asked if doing ok. 10/31: remains intubated, tracking more today, not following with extremities 11/01: nursing reports intermittently follows commands to upper extremities. for tracheostomy today. 11/02: s/p tracheostomy, smiling today, following commands. 11/03: smiling and nodding appropriately. PT at bedside. 11/04: mouthing some words today, no acute events overnight 11/07: doing well, left craniectomy site well decompressed. febrile, ID consulted. 11/08: no changes to neuro examination, low grade fevers again this morning 12/22: reconsulted for evaluation for cranioplasty 12/26: for left cranioplasty tomorrow morning. no new complaints, dw Dr. Guardado , medically cleared for surgery. 12/28: s/p left cranioplasty 12/27/16, doing well, eating his breakfast, c/o of mild surgical pain. 12/29: continues to do well, surgical pain a bit better today 12/30: doing well, feeding himself breakfast, awaiting transfer to (Malinda Hines) Labs, Micro, & Vital Signs Results Date Time Temp Pulse Resp B/P (MAP) Pulse Ox O2 Delivery O2 Flow Rate FiO2 12/30/16 06:00 80 12/30/16 04:00 78 12/30/16 04:00 98.5 78 16 107/67 (80) 12/30/16 02:00 83 12/30/16 00:00 98.6 93 12 98/66 (77) 12/30/16 00:00 93 12/29/16 22:00 93 12/29/16 20:22 96 21 12/29/16 20:00 99 12/29/16 20:00 98.5 100 15 103/67 (79) 12/29/16 18:45 88 12/29/16 16:00 99.0 92 18 109/74 (86) 12/29/16 16:00 92 12/29/16 12:00 99.2 105 14 118/66 (83) 12/29/16 12:00 105 12/29/16 10:00 88 Constitutional Vital Signs Date Time Temp Pulse Resp B/P (MAP) Pulse Ox O2 Delivery O2 Flow Rate FiO2 12/30/16 06:00 80 12/30/16 04:00 78 12/30/16 04:00 98.5 78 16 107/67 (80) 12/30/16 02:00 83 12/30/16 00:00 98.6 93 12 98/66 (77) 12/30/16 00:00 93 12/29/16 22:00 93 12/29/16 20:22 96 21 12/29/16 20:00 99 12/29/16 20:00 98.5 100 15 103/67 (79) 12/29/16 18:45 88 12/29/16 16:00 99.0 92 18 109/74 (86) 12/29/16 16:00 92 12/29/16 12:00 99.2 105 14 118/66 (83) 12/29/16 12:00 105 12/29/16 10:00 88 (Malinda Hines) Review of Systems Constitutional: DENIES: Fever Cardiovascular: DENIES: Chest pain Gastrointestinal: DENIES: Vomiting Neurologic: COMPLAINS OF: Headache (mild), DENIES: Seizures (Malinda Hines ) Physical Exam Surgical incision is covered with clean, dry kerlix dressing mildly conversing, voice is soft alert, smiling, no acute distress CN: pupils equal, facial motor symmetric Motor: moves all four extremities (Malinda Hines) Medications Current Medications Current Medications Medications (Trade) Dose Ordered Sig/Adali Route PRN Reason Start Time Stop Time Status Last Admin Dose Admin Heparin Sodium (Porcine) (Heparin Inj) 5,000 units Q8HR SQ 10/14/16 22:00 Future Hold 11/13/16 21:20 Artificial Tears (Tears Naturale Opth Soln) 1 drop TID EACH EYE 10/19/16 13:00 12/30/16 08:50 Albuterol Sulfate (Albuterol Neb) 2.5 mg Q2HR NEB PRN INH SOB/WHEEZING 10/19/16 09:45 11/22/16 22:09 Miscellaneous Information 1 Q361D XX 10/19/16 09:45 Chlorhexidine Gluconate (Chlorhexidine 2% Cloth) Taper DAILY@04 TOP 10/20/16 04:00 10/16/17 03:59 12/24/16 04:00 Chlorhexidine Gluconate (Chlorhexidine 2% Cloth) 3 pack UNSCH PRN TOP HYGIENIC CARE 10/19/16 09:45 Melatonin (Melatonin) 5 mg HS PO 11/01/16 21:00 12/29/16 20:10 Diltiazem HCl (Cardizem) 90 mg Q6HR PO 11/02/16 12:00 12/30/16 05:39 Bacitracin (Baciguent Oint) 1 applic Q12HR TOPICAL 11/18/16 11:00 12/30/16 08:50 Protein (Beneprotein Powder) 1 pack TID G-TUBE 11/19/16 09:00 12/30/16 08:55 Chlorhexidine Gluconate (Peridex 0.12% Liq) 15 ml BID@08,20 MT 11/26/16 20:00 12/28/16 21:36 Collagenase (Santyl Oint) 1 applic DAILY TOPICAL 11/30/16 12:00 12/30/16 08:50 Racepinephrine (Racepinephrine 2.25% Neb) 0.5 ml Q4HR NEB PRN NEB hemoptysis/stridor 12/03/16 15:00 Nitroglycerin (Nitroglycerin 2% Oint) 2 inch Q6H PRN TOPICAL SBP>160, DBP>90 12/04/16 09:15 Clonidine (Catapres) 0.1 mg Q8H PO 12/04/16 10:00 12/27/16 18:18 Enalaprilat (Vasotec Inj) 1.25 mg Q6H PRN IV PUSH SBP>160, DBP>90 12/04/16 09:15 Sodium Chloride (NS Flush) DAILY IV FLUSH 12/04/16 18:00 12/30/16 08:54 Sodium Chloride (NS Flush) UNSCH PRN IV FLUSH SEE PROTOCOL 12/04/16 18:00 Loperamide HCl (Imodium Liq) 2 mg UNSCH PRN PO DIARRHEA 12/14/16 10:45 Lactobacillus Acidophilus (Lactinex) 1 tab TID PO 12/14/16 18:00 12/30/16 08:48 Famotidine (Pepcid) 20 mg BID PO 12/16/16 21:00 12/30/16 08:49 Ferrous Sulfate (Ferrous Sulfate) 325 mg BID@,17 PO 12/22/16 12:00 12/29/16 17:23 Ascorbic Acid (Vitamin C) 500 mg BID PO 12/22/16 09:00 12/30/16 08:49 Potassium Chloride/Sodium Chloride 1,000 ml @ 100 mls/hr Q10H IV 12/27/16 11:17 12/30/16 05:45 IV Flush (NS Flush) 2 ml UNSCH PRN IVF FLUSH AFTER USING IV ACCESS 12/27/16 11:30 IV Flush (NS Flush) 2 ml BID IVF 12/27/16 21:00 12/28/16 21:36 Bisacodyl (Dulcolax Supp) 10 mg DAILY PRN RECTAL CONSTIPATION 12/27/16 11:30 Docusate Sodium (Colace) 100 mg BID PO 12/27/16 21:00 12/30/16 08:49 Pantoprazole Sodium (Protonix) 40 mg DAILY PO 12/28/16 09:00 12/30/16 08:48 Pantoprazole Sodium (Protonix Inj) 40 mg DAILY IVP 12/28/16 09:00 Ondansetron HCl (Zofran Inj) 4 mg Q6H PRN IV PUSH NAUSEA OR VOMITING 12/27/16 11:30 Potassium Chloride 100 ml @ 50 mls/hr UNSCH PRN IV POTASSIUM LESS THAN 4 12/27/16 11:30 Magnesium Sulfate 4 gm/Sodium Chloride 108 ml @ 108 mls/hr UNSCH PRN IV MAGNESIUM LESS THAN 2 12/27/16 11:30 Acetaminophen/ Hydrocodone Bitart ([place] 10-325 Mg) 1 tab Q4H PRN PO PAIN 1-5 WHEN TOLERATING PO 12/27/16 11:30 12/30/16 05:54 Acetaminophen/ Hydrocodone Bitart ([place] 10-325 Mg) 2 tab Q4H PRN PO PAIN 6-10 WHEN TOLERATING PO 12/27/16 11:30 12/28/16 18:04 Morphine Sulfate (Morphine Inj) 2 mg Q2H PRN IV PUSH PAIN SCALE 1 TO 6 12/27/16 11:30 12/29/16 15:05 Morphine Sulfate (Morphine Inj) 4 mg Q2H PRN IV PUSH PAIN SCALE 7 TO 10 12/27/16 11:30 12/28/16 18:00 Acetaminophen (Tylenol) 650 mg Q4H PRN PO TEMPERATURE > 101.5 F 12/27/16 11:30 Calcium Gluconate 1 gm/Sodium Chloride 110 ml @ 110 mls/hr UNSCH PRN IV SEE LABEL COMMENT 12/27/16 12:00 Levetriacetam (Keppra Liq) 500 mg Q12HR PEG 12/27/16 21:00 12/30/16 08:48 (Malinda Hines) Medical Decision Making MDM Remarks 56 y/o male with subarachnoid hemorrhage, status post coiling posterior communicating artery aneurysm. s/p left decompressive craniectomy. Left craniectomy site now well decompressed. s/p left cranioplasty with replacement of his bone flap on 12/27/16, doing well post-op (Malinda Hines) Plan Plan Remarks cont neuro checks, clear to transfer out of unit back to 5N near nrs station, clear to dc to rehab/SNF from neurosurgery standpoint, cont therapy and rehab efforts, ok OOB activities with assistance dc jean 01/10/17 will sign off, call prn (Malinda Hines) Attending Statement The exam, history, and the medical decision-making described in the above note were completed with the assistance of the mid-level provider. I reviewed and agree with the findings presented. I attest that I had a [id number] encounter with the patient on the same day, and personally performed and documented my assessment and findings in the medical record. (George Perry MD) Malinad Hines Dec 30, 2016 09:09 George Perry MD Jan 03, 2017 14:48
[2016-12-30] MEDS: FERROUS SULFATE 325 MG (65 MG ELEMENTAL IRON) TAB PO SCH ×2 (11:57→18:30)
--- NOTE | 2016-12-30 12:43 | HHI.PR ---
Subjective Remarks Patient is still in bed since he doesn't have any headaches at this time. No change in vision. No fever or chills. Not doing well with physical therapy. Lower extremity edema improved. Objective Vitals Vital Signs Date Time Temp Pulse Resp B/P (MAP) Pulse Ox O2 Delivery O2 Flow Rate FiO2 12/30/16 12:07 78 12/30/16 12:07 98.8 78 14 101/63 (76) 12/30/16 10:07 86 12/30/16 08:00 98.2 82 16 109/62 (78) 12/30/16 08:00 82 12/30/16 06:00 80 12/30/16 04:00 78 12/30/16 04:00 98.5 78 16 107/67 (80) 12/30/16 02:00 83 12/30/16 00:00 98.6 93 12 98/66 (77) 12/30/16 00:00 93 12/29/16 22:00 93 12/29/16 20:22 96 21 12/29/16 20:00 99 12/29/16 20:00 98.5 100 15 103/67 (79) 12/29/16 18:45 88 12/29/16 16:00 99.0 92 18 109/74 (86) 12/29/16 16:00 92 I/O 12/29/16 12/29/16 12/29/16 12/30/16 12/30/16 12/30/16 07:00 15:00 23:00 07:00 15:00 23:00 Intake Total 569 ml 1175 ml 1766 ml Output Total 1000 ml 1750 ml 3150 ml Balance -431 ml -575 ml -1384 ml Intake Oral 840 ml 240 ml IV Total 1100 ml Tube Feeding 469 ml 275 ml 426 ml Tube Irrigant 100 ml 60 ml Output Urine Total 1000 ml 1750 ml 3150 ml # Bowel Movements 0 1 Result Diagram: 12/28/1644512/28/166 Imaging Last Impressions Lower Extremity Ultrasound 12/29/16 0000 Signed Impressions: Service Date/Time: December 13:07 - CONCLUSION: No sonographic or Doppler findings of deep venous thrombosis. Joni Shelton MD Carotid Artery Ultrasound 12/27/16 0000 Signed Impressions: Service Date/Time: Tuesday, December 27, 2016 17:19 - CONCLUSION: Mild plaque at the carotid bulb regions bilaterally without a significant stenosis seen. Yosvany Alfaro MD Aorta w/Runoff CTA 12/27/16 0000 Signed Impressions: Service Date/Time: Wednesday, December 28, 2016 17:28 - CONCLUSION: Atherosclerotic calcification seen throughout the arterial system without an area of significant stenosis. The trifurcation vessels are only faintly opacified. Yosvany Alfaro MD Modified Barium Swallow 12/23/16 0000 Signed Impressions: Service Date/Time: Friday, December 23, 2016 09:11 - CONCLUSION: Negative for aspiration.. Remington Woodward MD FACR Chest X-Ray 12/04/16 8133 Signed Impressions: Service Date/Time: Sunday, December 04, 2016 18:55 - CONCLUSION: 1. Placement of left central line tip in superior vena cava. No pneumothorax. Mild basilar airspace disease. Small right effusion. Gurwinder Root MD Upper Extremity Ultrasound 12/04/16 0000 Signed Impressions: Service Date/Time: Sunday, December 04, 2016 15:37 - CONCLUSION: 1. Positive for occlusive deep venous thrombosis in the right axillary and subclavian vein. Occlusive superficial thrombus in bilateral cephalic veins. Gurwinder Root MD Angiography 12/01/16 0000 Signed Impressions: Service Date/Time: November 14:02 - CONCLUSION: 1. Right side up on her hemorrhage with angiography of the right bronchial artery revealing no source of active hemorrhage. Empiric embolization was performed. Santos Crockett Jr., MD Chest CT 11/28/16 0000 Signed Impressions: Service Date/Time: Tuesday, November 29, 2016 05:13 - CONCLUSION: 1. Patchy alveolar disease characteristic of edema or pneumonia. 2. Severe emphysema 3. Gastrojejunostomy tube looped in the stomach Harvey Morejon MD Chest/Thorax CTA 11/26/16 0000 Signed Impressions: Service Date/Time: Saturday, November 26, 2016 20:18 - CONCLUSION: 1. Extensive filling defects within the right central bronchial tree characteristic of endobronchial hemorrhage. 2. Consolidating airspace disease in the right upper lobe and right lower lobe characteristic of hemorrhage and post obstructive lung consolidation. 3. Right bronchial artery is identified extending to the central right bronchial region 4. Advanced COPD. Nasir F. Vasiliy, MD Abdomen X-Ray 11/19/16 06 Signed Impressions: Service Date/Time: Saturday, November 19, 2016 02:44 - CONCLUSION: Unchanged bowel gas pattern potentially relating to an ileus. Santos Crockett Jr., MD Transcranial Doppler Study Complete 10/20/16 06 Signed Impressions: Service Date/Time: October 07:54 - CONCLUSION: Slight interval elevation of flow velocity measurements and ratio on the left Yosvany Polk MD Liver Ultrasound 10/19/16 0000 Signed Impressions: Service Date/Time: Wednesday, October 19, 2016 11:20 - CONCLUSION: 1. Sludge filled gallbladder with thickened wall. 2. Moderate size bilateral pleural effusions and mild upper abdominal ascites. Santos Vazquez MD Cerebral Arteriogram 10/19/16 0000 Signed Impressions: Service Date/Time: Wednesday, October 19, 2016 12:47 - CONCLUSION: Uncomplicated cerebral arteriography with spasmolytic therapy as described in detail above. Yosvany Polk MD Head CT 10/17/16 0000 Signed Impressions: Service Date/Time: Monday, October 17, 2016 15:06 - CONCLUSION: Ventricles are slightly larger without ventriculostomy. Edema in the left hemisphere the brain herniating through the operative site. Remington Woodward MD FACR Infusion Non-thrombolysis 10/14/16 1103 Signed Impressions: Service Date/Time: Friday, October 14, 2016 10:21 - CONCLUSION: 1. Uncomplicated infusion for spasmolysis Harvey Morejon MD Neck CTA 10/07/16 0000 Signed Impressions: Service Date/Time: Friday, October 07, 2016 15:03 - CONCLUSION: 1. Mild carotid bulb atherosclerotic calcification bilaterally. However, no significant stenosis is present in either internal carotid artery. 2. Paranasal sinus mucoperiosteal thickening. 3. Please refer to brain CTA report for description of the intracranial findings. Yosvany Ramirez MD Head CTA 10/07/16 0000 Signed Impressions: Service Date/Time: Friday, October 07, 2016 15:03 - CONCLUSION: 1. 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 2. Large left subdural hematoma measuring 1.3 cm in depth with a significant, 1.6 cm left to right subfalcine shift. Joni Shelton MD Objective Remarks GENERAL: Awake and alert, oriented, appears in nad. SKIN: All toes with digital ischemia, left 2nd finger and right ringer finger with distal digit ischemia. Stage 1-2 decubitus ulcer NECK: Bandage noted at neck in covering trach site c/d/i. CARDIOVASCULAR: Regular rate and rhythm. RESPIRATORY: No accessory muscle use. Clear to auscultation. Breath sounds equal bilaterally. GASTROINTESTINAL: Abdomen soft, non-tender, nondistended. Soft PEG in place, site c/d/i MUSCULOSKELETAL: Extremities without clubbing, cyanosis. Lower extremity edema improved. No obvious deformities. Bilateral radial and DP,PT ++ NEUROLOGICAL: Alert and oriented x3, pleasant. Speech IS soft with short sentences. Procedures 10/13 Four-vessel cerebral angiography with verapamil treatment of vasospasm Status post left frontotemporal parietal craniectomy 10/08 for evacuation subdural hematoma/duraplasty. 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 parietal cranioplasty with replacement of skull flap by Dr Perry neurosurgery on 12/27/16 Date of Insertion: Dec 04, 2016 Line: Central Venous Catheter Side: Left Location: Internal, Jugular A/P Problem List: (1) Subarachnoid hemorrhage due to ruptured aneurysm ICD Code: I60.8 - Other nontraumatic subarachnoid hemorrhage (2) Subdural hematoma ICD Code: I62.00 - Nontraumatic subdural hemorrhage, unspecified (3) Intracranial aneurysm ICD Code: I67.1 - Cerebral aneurysm, nonruptured (4) Respiratory failure ICD Code: J96.90 - Respiratory failure, unspecified, unspecified whether with hypoxia or hypercapnia Status: Acute Assessment and Plan 56-year-old male presents with intracranial bleed, was transferred from [facility]. S/P left frontotemporal parietal craniotomy: Pt tolerating diet that was advanced yesterday. Still awaiting information (date/time) about bone flap surgery. Respiratory: Pt tolerating recent decannulation. Oxygen saturation noted to be 97-100 over past 24 hours. Hypotension: pt evidenced systolic blood pressure readings of 103, 105,106x2. Clonidine held and pressures improved. Will hold clonidine at this time. Monitor. If blood pressure improves will consider discontinuing Clonidine tomorrow. Status post left frontotemporal parietal craniectomy 10/08 for evacuation subdural hematoma/duraplasty. 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 Initiated 10/13. - Levetiracetam 500 mg per tube q12h. - 10/13 and 10/14 and 10/17) 10/19 left MCA territory vasospasm, status post successful verapamil treatment by IR with 20 mg verapamil - 10/17 CT brain - less hemisphere edema with herniation through left craniotomy site, now improved. - Dr. Perry/neurosurgery. Plan to replace bone flap in the future - Echocardiogram 10/14/16 revealed EF 40-45%. Septal hypokinesis. Moderate MR. Severe pulmonary hypertension with pulmonary artery pressures estimated 61 mmHg Limited Echo 11/06: LVEF 60-65%, Trivial mitral and tricuspid regurgitation, No vegetations noted. - Continue diltiazem's 90 mg by mouth every 6 hours and furosemide 20 mg daily - neurologically stable and doing well, and continued PT and rehabilitation. - PT, OT, speech following. Patient will need helmet when out of bed to chair. Helmet at bedside - Patient activity should be increased to out of bed to chair with helmet. Respiratory failure, S/P tracheostomy - S/p Trach Dr. Sullivan/Dr. Collazo 11/01 #8 [place] - CT angiogram chest/neck revealed right centrilobular bleeding likely source right bronchial artery. Repeat CT chest 11/29no visualization of active bleeding.- Resolved - 12/01 - embolization of right bronchial artery by IR- no further bleeding from tracheostomy - Redo trach 11/[address] Sullivan; down sized to uncuffed fenestrated 6 tracheostomy on 12/14 and now capped. - Albuterol/ipratropium aerosols every 6 hours with albuterol aerosols - Dr. Wilson plan is to downsize tube and probably considering tracheostomy removal - Tolerated tracheostomy capping. Has been decannulated. Tolerating room air. - Monitor Respiratory status Lower extremity edema improved. Ultrasound Doppler reviewed and no DVT. Patient with high risk of bleeding and is not chemoprophylaxis at this time. Continue SCDs and teds for DVT prophylaxis. Ileus- improving. Monitor Elevated transaminases Hyperammonemia Severe protein caloric malnutrition- continue with tube feeds as tolerated. - Currently on Glucerna 1.5 goal 60 cc an hour. Consult engine lathe set up operator to review formula. - free water per G tube 200mL per tube q6h. - Lansoprazole 30 mg by tube daily for GI prophylaxis will change this to Pepcid - Continue bowel regimen - Reglan DC 12/13- stools amount decreased and thicker in consistency- continue to monitor - Continue PEG feeding. s/p PEG 11/12/16 - speech following for swallowing progress - Tube feeds only at night, patient has regular trach during the daytime, will order ensure pudding - Dietitian consulted to reevaluate tube feeding rate. Right occlusive subclavian, axillary and bilateral superficial cephalic thrombus - limited Echo to evaluate vegetation-neg. ID following - Digital Ischemia with necrosis involving all toes and left 2nd finger and right ringer finger- stable, conservative management - Digits have demarcated, allow auto amputation. Cardizem PO currently and 90 mg every 6 hours (for digital ischemia, Raynaud's) - Continue bacitracin twice a day to affected areas - Central line for IV access. We'll need to be started on systemic anticoagulation at some point however with recent embolization for hemoptysis holding full anticoagulation at this time. - Consult vascular surgeon . Seen by Dr Valente plan for CTA Ao runoff Stage 2 sacral ulcer - ABD dressing with [employer]- staff nurse makes sure to keep area dry - Turn position every 2 hours - Out of bed to chair activity Course of hospitalization complications Acute hypoxic Respiratory failure secondary to mucous plugging- Resolved Possible healthcare associated pneumonia, Septic Shock- resolved. ARDS - resolved Noncardiogenic/neurogenic pulmonary edema- resolved. Massive Hemoptysis - resolved Aspiration pneumonitis - resolved Cerebral Salt Wasting/SIADH-resolved now hypernatremic - Creatinine currently within normal limits -> resolved. - Monitor urine output Septic and cardiogenic shock- resolved. LV dysfunction secondary to SAH - persistent, now resolved Elevated troponin- secondary to SAH, unlikely to be ACS. - resolved. Pulmonary hypertension s/p PEA arrest 11/28 after ETT dislodgement, hypoxic arrest DVT prop SCD, no chemoprophylaxis secondary to risk for bleeding. Patient with lower extremity edema at this time will do ultrasound Doppler to rule out DVT this patient with high risk of bleeding and is not chemoprophylaxis at this time. Full Code Discussed with patient, nurse, Angie Ferraro and Dr Perry from neurosurgery Discharge Planning Pending SSI. Placement will be in senior living facility or long-term care. CM following. S/p left cranioplasty 12/27/16. Transfer to the medical floor. Problem Qualifiers (1) Respiratory failure: Qualified Codes: J96.00 - Acute respiratory failure, unspecified whether with hypoxia or hypercapnia Nancy Guardado MD Dec 30, 2016 12:43
--- NOTE | 2016-12-30 17:40 | PD.WCN.NOT ---
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 [place] skin prep to periwound before covering with an ABD pad and securing with tape.change dressing daily. 2. Please order [facility] 4 bed 3.Continue to turn and reposition patient every 2 hours from left to right and PRN for comfort Additional Information: Patient seen on [address] for follow up of wounds to bilateral buttocks and for wound below trach.Positioned patient to R side for assessment after holding tube feed and lowering head of bed, with the minimal assistance of Ita ALFORD and typewriters functional tester. Removed tape and ABD pad dressing in place to reveal wounds to R and L buttock. Patient is continent and now uses the bed antonio. Right buttock wound presents as full thickness skin loss measuring ~2cm x ~0.7cm x 0.4cm 100% red granulation tissue noted in moist wound bed with well defined wound margins.Periwound is unremarkable. Wound has minimal sero-sanguinous active drainage that is without foul odor. Left buttock wound presents as full thickness skin loss measuring 3cm x 1cmx ~0.5cm.Wound is noted with moist wound bed, with minimal active sero-sanguinous drainage and no foul odor. Wound bed presents with ~90% red granulation tissue and ~10 % white tissue, with well defined wound margins.Periwound is unremarkable. Wounds were cleansed with NS and gauze prior to applying patsy thick Santyl Ointment to L and R buttock wound beds only. Sprayed periwound with Cavilon skin prep before applying ABD pad, secured with paper tape Patient was positioned on back for wound assessment of wound below trach. Removed gauze in place to reveal trach site scar tissue is noted just below trach site.JOSE CRUZ Jean Baptiste to apply dressing over trach site. Wounds to arms are closed and no longer require dressings. Patient was on low airloss specialty mattress and is now and regular [facility] bed. Still recommend low airloss specialty bed for patient RashaunZina [facility] Dec 30, 2016 17:40
[2016-12-30] MEDS: BACITRACIN OINT 0.9 GM PKT TOPICAL SCH (18:31)
[2016-12-30] MEDS: MELATONIN 5 MG TAB PO SCH (21:00)
[2016-12-31] VITALS (9 sets, daily range): BP systolic 88–120; BP diastolic 57–72; PULSE 66–86; RESP 18–20; TEMP 98.2–99.3; O2SAT 95–98
[2016-12-31] MEDS: DILTIAZEM HCL 90 MG TAB PO SCH ×5 (00:57→23:27)
[2016-12-31] MEDS: cloNIDine HCL 0.1 MG TAB PO SCH ×3 (01:08→17:48)
[2016-12-31] MEDS: NS + KCL 20 MEQ INJ 1,000 ML IV SCH ×2 (01:08→14:08)
[2016-12-31] MEDS: CHLORHEXIDINE GLUCONATE 2 % 1 PACK (2 CLOTHS) TOP SCH (01:45)
[2016-12-31] MEDS: CHLORHEXIDINE 0.12% (ORAL KIT) 15 ML CUP MT SCH ×2 (08:00→20:00)
--- NOTE | 2016-12-31 08:05 | HHI.PR ---
Subjective Remarks Patient in nad. Says she has minimal pain at the surgical site. No nausea or vomiting. Denies fever or chills. Trach site with new dressing placed by the nurse, wound cultures obtained, use bacitracin topical. . Objective Vitals Vital Signs Date Time Temp Pulse Resp B/P (MAP) Pulse Ox O2 Delivery O2 Flow Rate FiO2 12/31/16 06:18 75 12/31/16 05:23 98.5 81 18 114/60 (78) 95 12/31/16 00:26 99.3 86 18 116/72 (87) 96 12/30/16 21:32 98.5 84 18 109/64 (79) 96 12/30/16 18:00 77 12/30/16 16:00 88 12/30/16 16:00 98.8 76 14 98/63 (75) 12/30/16 14:49 88 12/30/16 12:07 78 12/30/16 12:07 98.8 78 14 101/63 (76) 12/30/16 10:07 86 I/O 12/30/16 12/30/16 12/30/16 12/31/16 12/31/16 12/31/16 07:00 15:00 23:00 07:00 15:00 23:00 Intake Total 1766 ml 825 ml 2033 ml Output Total 3150 ml 1950 ml 2700 ml Balance -1384 ml -1125 ml -667 ml Intake Oral 240 ml 650 ml IV Total 1100 ml 1493 ml Tube Feeding 426 ml 175 ml 440 ml Tube Irrigant 100 ml Output Urine Total 3150 ml 1950 ml 2700 ml # Bowel Movements 1 Result Diagram: 12/28/16 0446 12/28/16 0446 Imaging Last Impressions Lower Extremity Ultrasound 12/29/16 0000 Signed Impressions: Service Date/Time: December 13:07 - CONCLUSION: No sonographic or Doppler findings of deep venous thrombosis. Joni Shelton MD Carotid Artery Ultrasound 12/27/16 0000 Signed Impressions: Service Date/Time: Tuesday, December 27, 2016 17:19 - CONCLUSION: Mild plaque at the carotid bulb regions bilaterally without a significant stenosis seen. Yosvany Alfaro MD Aorta w/Runoff CTA 12/27/16 0000 Signed Impressions: Service Date/Time: Wednesday, December 28, 2016 17:28 - CONCLUSION: Atherosclerotic calcification seen throughout the arterial system without an area of significant stenosis. The trifurcation vessels are only faintly opacified. Yosvany Alfaro MD Modified Barium Swallow 12/23/16 0000 Signed Impressions: Service Date/Time: Friday, December 23, 2016 09:11 - CONCLUSION: Negative for aspiration.. Remington Woodward MD FACR Chest X-Ray 12/04/16 8513 Signed Impressions: Service Date/Time: Sunday, December 04, 2016 18:55 - CONCLUSION: 1. Placement of left central line tip in superior vena cava. No pneumothorax. Mild basilar airspace disease. Small right effusion. Gurwinder Root MD Upper Extremity Ultrasound 12/04/16 0000 Signed Impressions: Service Date/Time: Sunday, December 04, 2016 15:37 - CONCLUSION: 1. Positive for occlusive deep venous thrombosis in the right axillary and subclavian vein. Occlusive superficial thrombus in bilateral cephalic veins. Gurwinder Root MD Angiography 12/01/16 0000 Signed Impressions: Service Date/Time: November 14:02 - CONCLUSION: 1. Right side up on her hemorrhage with angiography of the right bronchial artery revealing no source of active hemorrhage. Empiric embolization was performed. Santos Crockett Jr., MD Chest CT 11/28/16 0000 Signed Impressions: Service Date/Time: Tuesday, November 29, 2016 05:13 - CONCLUSION: 1. Patchy alveolar disease characteristic of edema or pneumonia. 2. Severe emphysema 3. Gastrojejunostomy tube looped in the stomach Harvey Morejon MD Chest/Thorax CTA 11/26/16 0000 Signed Impressions: Service Date/Time: Saturday, November 26, 2016 20:18 - CONCLUSION: 1. Extensive filling defects within the right central bronchial tree characteristic of endobronchial hemorrhage. 2. Consolidating airspace disease in the right upper lobe and right lower lobe characteristic of hemorrhage and post obstructive lung consolidation. 3. Right bronchial artery is identified extending to the central right bronchial region 4. Advanced COPD. Nasir Amanda MD Abdomen X-Ray 11/19/16 0600 Signed Impressions: Service Date/Time: Saturday, November 19, 2016 02:44 - CONCLUSION: Unchanged bowel gas pattern potentially relating to an ileus. Santos Crockett Jr., MD Transcranial Doppler Study Complete 10/20/16 0600 Signed Impressions: Service Date/Time: October 07:54 - CONCLUSION: Slight interval elevation of flow velocity measurements and ratio on the left Yosvany Polk MD Liver Ultrasound 10/19/16 0000 Signed Impressions: Service Date/Time: Wednesday, October 19, 2016 11:20 - CONCLUSION: 1. Sludge filled gallbladder with thickened wall. 2. Moderate size bilateral pleural effusions and mild upper abdominal ascites. Santos Vazquez MD Cerebral Arteriogram 10/19/16 0000 Signed Impressions: Service Date/Time: Wednesday, October 19, 2016 12:47 - CONCLUSION: Uncomplicated cerebral arteriography with spasmolytic therapy as described in detail above. Yosvany Plok MD Head CT 10/17/16 0000 Signed Impressions: Service Date/Time: Monday, October 17, 2016 15:06 - CONCLUSION: Ventricles are slightly larger without ventriculostomy. Edema in the left hemisphere the brain herniating through the operative site. Remington Woodward MD FACR Infusion Non-thrombolysis 10/14/16 1103 Signed Impressions: Service Date/Time: Friday, October 14, 2016 10:21 - CONCLUSION: 1. Uncomplicated infusion for spasmolysis Harvey Morejon MD Neck CTA 10/07/16 0000 Signed Impressions: Service Date/Time: Friday, October 07, 2016 15:03 - CONCLUSION: 1. Mild carotid bulb atherosclerotic calcification bilaterally. However, no significant stenosis is present in either internal carotid artery. 2. Paranasal sinus mucoperiosteal thickening. 3. Please refer to brain CTA report for description of the intracranial findings. Yosvany Ramirez MD Head CTA 10/07/16 0000 Signed Impressions: Service Date/Time: Friday, October 07, 2016 15:03 - CONCLUSION: 1. 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 2. Large left subdural hematoma measuring 1.3 cm in depth with a significant, 1.6 cm left to right subfalcine shift. Joni Shelton MD Objective Remarks GENERAL: Awake and alert, oriented, appears in nad. SKIN: All toes with digital ischemia, left 2nd finger and right ringer finger with distal digit ischemia. Stage 1-2 decubitus ulcer NECK: Bandage noted at neck in covering trach site c/d/i. CARDIOVASCULAR: Regular rate and rhythm. RESPIRATORY: No accessory muscle use. Clear to auscultation. Breath sounds equal bilaterally. GASTROINTESTINAL: Abdomen soft, non-tender, nondistended. Soft PEG in place, site c/d/i MUSCULOSKELETAL: Extremities without clubbing, cyanosis. Lower extremity edema improved. No obvious deformities. Bilateral radial and DP,PT ++ NEUROLOGICAL: Alert and oriented x3, pleasant. Speech IS soft with short sentences. Procedures 10/13 Four-vessel cerebral angiography with verapamil treatment of vasospasm Status post left frontotemporal parietal craniectomy 10/08 for evacuation subdural hematoma/duraplasty. 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 parietal cranioplasty with replacement of skull flap by Dr Perry neurosurgery on 12/27/16 Date of Insertion: Dec 04, 2016 Line: Central Venous Catheter Side: Left Location: Internal, Jugular A/P Problem List: (1) Subarachnoid hemorrhage due to ruptured aneurysm ICD Code: I60.8 - Other nontraumatic subarachnoid hemorrhage (2) Subdural hematoma ICD Code: I62.00 - Nontraumatic subdural hemorrhage, unspecified (3) Intracranial aneurysm ICD Code: I67.1 - Cerebral aneurysm, nonruptured (4) Respiratory failure ICD Code: J96.90 - Respiratory failure, unspecified, unspecified whether with hypoxia or hypercapnia Status: Acute Assessment and Plan 56-year-old male presents with intracranial bleed, was transferred from [facility]. S/P left frontotemporal parietal craniotomy: Pt tolerating diet that was advanced yesterday. Still awaiting information (date/time) about bone flap surgery. Respiratory: Pt tolerating recent decannulation. Oxygen saturation noted to be 97-100 over past 24 hours. Hypotension: pt evidenced systolic blood pressure readings of 103, 105,106x2. Clonidine held and pressures improved. Will hold clonidine at this time. Monitor. If blood pressure improves will consider discontinuing Clonidine tomorrow. Status post left frontotemporal parietal craniectomy 10/08 for evacuation subdural hematoma/duraplasty. 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 Initiated 10/13. - Levetiracetam 500 mg per tube q12h. - 10/13 and 10/14 and 10/17) 10/19 left MCA territory vasospasm, status post successful verapamil treatment by IR with 20 mg verapamil - 10/17 CT brain - less hemisphere edema with herniation through left craniotomy site, now improved. - Dr. Perry/neurosurgery. Plan to replace bone flap in the future - Echocardiogram 10/14/16 revealed EF 40-45%. Septal hypokinesis. Moderate MR. Severe pulmonary hypertension with pulmonary artery pressures estimated 61 mmHg Limited Echo 11/06: LVEF 60-65%, Trivial mitral and tricuspid regurgitation, No vegetations noted. - Continue diltiazem's 90 mg by mouth every 6 hours and furosemide 20 mg daily - neurologically stable and doing well, and continued PT and rehabilitation. - PT, OT, speech following. Patient will need helmet when out of bed to chair. Helmet at bedside - Patient activity should be increased to out of bed to chair with helmet. Respiratory failure, S/P tracheostomy - S/p Trach Dr. Sullivan/Dr. Collazo 11/01 #8 [place] - CT angiogram chest/neck revealed right centrilobular bleeding likely source right bronchial artery. Repeat CT chest 11/29no visualization of active bleeding.- Resolved - 12/01 - embolization of right bronchial artery by IR- no further bleeding from tracheostomy - Redo trach 11/[address] Sullivan; down sized to uncuffed fenestrated 6 tracheostomy on 12/14 and now capped. - Albuterol/ipratropium aerosols every 6 hours with albuterol aerosols - Dr. Wilson plan is to downsize tube and probably considering tracheostomy removal - Tolerated tracheostomy capping. Has been decannulated. Tolerating room air. - Monitor Respiratory status Lower extremity edema improved. Ultrasound Doppler reviewed and no DVT. Patient with high risk of bleeding and is not chemoprophylaxis at this time. Continue SCDs and teds for DVT prophylaxis. Ileus- improving. Monitor Elevated transaminases Hyperammonemia Severe protein caloric malnutrition- continue with tube feeds as tolerated. - Currently on Glucerna 1.5 goal 60 cc an hour. Consult social media assistant to review formula. - free water per G tube 200mL per tube q6h. - Lansoprazole 30 mg by tube daily for GI prophylaxis will change this to Pepcid - Continue bowel regimen - Reglan DC 12/13- stools amount decreased and thicker in consistency- continue to monitor - Continue PEG feeding. s/p PEG 11/12/16 - speech following for swallowing progress - Tube feeds only at night, patient has regular trach during the daytime, will order ensure pudding - Dietitian consulted to reevaluate tube feeding rate. Right occlusive subclavian, axillary and bilateral superficial cephalic thrombus - limited Echo to evaluate vegetation-neg. ID following - Digital Ischemia with necrosis involving all toes and left 2nd finger and right ringer finger- stable, conservative management - Digits have demarcated, allow auto amputation. Cardizem PO currently and 90 mg every 6 hours (for digital ischemia, Raynaud's) - Continue bacitracin twice a day to affected areas - Central line for IV access. We'll need to be started on systemic anticoagulation at some point however with recent embolization for hemoptysis holding full anticoagulation at this time. - Consult vascular surgeon . Seen by Dr Valente plan for CTA Ao runoff Stage 2 sacral ulcer - ABD dressing with [employer]- staff nurse makes sure to keep area dry - Turn position every 2 hours - Out of bed to chair activity Course of hospitalization complications Acute hypoxic Respiratory failure secondary to mucous plugging- Resolved Possible healthcare associated pneumonia, Septic Shock- resolved. ARDS - resolved Noncardiogenic/neurogenic pulmonary edema- resolved. Massive Hemoptysis - resolved Aspiration pneumonitis - resolved Cerebral Salt Wasting/SIADH-resolved now hypernatremic - Creatinine currently within normal limits -> resolved. - Monitor urine output Septic and cardiogenic shock- resolved. LV dysfunction secondary to SAH - persistent, now resolved Elevated troponin- secondary to SAH, unlikely to be ACS. - resolved. Pulmonary hypertension s/p PEA arrest 11/28 after ETT dislodgement, hypoxic arrest DVT prop SCD, no chemoprophylaxis secondary to risk for bleeding. Patient with lower extremity edema at this time will do ultrasound Doppler to rule out DVT this patient with high risk of bleeding and is not chemoprophylaxis at this time. Full Code Discussed with patient, nurse, Angie Ferraro and Dr Perry from neurosurgery Discharge Planning Pending SSI. Placement will be in intermediate facility or long-term care. CM following. S/p left cranioplasty 12/27/16. Transfer to the medical floor. Problem Qualifiers (1) Respiratory failure: Qualified Codes: J96.00 - Acute respiratory failure, unspecified whether with hypoxia or hypercapnia Nancy Guardado MD Dec 31, 2016 08:05
[2016-12-31] MEDS: SODIUM CHLORIDE 0.9% FLUSH 10 ML FLUSH IV FLUSH SCH (09:00)
[2016-12-31] MEDS: SODIUM CHLORIDE 0.9% FLUSH 5 ML FLUSH IVF SCH ×2 (09:00→21:36)
[2016-12-31] MEDS: COLLAGENASE OINT 30 GM TUBE TOPICAL SCH (09:00)
[2016-12-31] MEDS: BACITRACIN TOP OINT 15 GM TUBE TOPICAL SCH ×2 (09:00→21:36)
[2016-12-31] MEDS: ARTIFICIAL TEARS OPTH SOLN 15 ML BTL EACH EYE SCH ×3 (09:00→18:00)
[2016-12-31] MEDS: BACITRACIN OINT 0.9 GM PKT TOPICAL SCH (09:00)
[2016-12-31] MEDS: PANTOPRAZOLE SOD 40 MG DELAYED RELEASE TAB PO SCH (09:44)
[2016-12-31] MEDS: DOCUSATE SODIUM 100 MG CAP PO SCH ×2 (09:44→21:29)
[2016-12-31] MEDS: ASCORBIC ACID 500 MG TAB PO SCH ×2 (09:44→21:29)
[2016-12-31] MEDS: levETIRAcetam 500 MG/5 ML UDC PEG SCH ×2 (09:44→23:19)
[2016-12-31] MEDS: FAMOTIDINE 20 MG TAB PO SCH ×2 (09:44→21:29)
[2016-12-31] MEDS: PANTOPRAZOLE SODIUM 40 MG VIAL IVP SCH (09:44)
[2016-12-31] MEDS: LACTOBACILLUS ACIDOPHILUS TAB PO SCH ×3 (09:44→17:48)
[2016-12-31] MEDS: FERROUS SULFATE 325 MG (65 MG ELEMENTAL IRON) TAB PO SCH ×2 (12:19→17:49)
[2016-12-31] MEDS: BENEPROTEIN POWDER 1 PACK G-TUBE SCH ×3 (13:00→22:04)
[2016-12-31] MEDS: MELATONIN 5 MG TAB PO SCH (21:29)
[2017-01-01] VITALS: BP 99/67; PULSE 63; RESP 18; TEMP 97.3; O2SAT 98
[2017-01-01] MEDS: NS + KCL 20 MEQ INJ 1,000 ML IV SCH ×2 (02:00→15:02)
[2017-01-01] MEDS: cloNIDine HCL 0.1 MG TAB PO SCH ×3 (02:00→18:11)
[2017-01-01 04:00] VITALS: BP 132/78; PULSE 68; RESP 18; TEMP 97.4; O2SAT 98
[2017-01-01] MEDS: CHLORHEXIDINE GLUCONATE 2 % 1 PACK (2 CLOTHS) TOP SCH (04:00)
[2017-01-01] MEDS: DILTIAZEM HCL 90 MG TAB PO SCH ×3 (06:00→18:11)
[2017-01-01 08:00] VITALS: BP 125/84; PULSE 63; RESP 16; TEMP 97.7; O2SAT 99
[2017-01-01] MEDS: CHLORHEXIDINE 0.12% (ORAL KIT) 15 ML CUP MT SCH ×2 (08:00→20:41)
[2017-01-01] MEDS: SODIUM CHLORIDE 0.9% FLUSH 5 ML FLUSH IVF SCH ×2 (08:49→20:41)
[2017-01-01] MEDS: SODIUM CHLORIDE 0.9% FLUSH 10 ML FLUSH IV FLUSH SCH (08:49)
[2017-01-01] MEDS: PANTOPRAZOLE SODIUM 40 MG VIAL IVP SCH (08:49)
[2017-01-01] MEDS: ASCORBIC ACID 500 MG TAB PO SCH ×2 (08:50→20:41)
[2017-01-01] MEDS: DOCUSATE SODIUM 100 MG CAP PO SCH ×2 (08:50→20:41)
[2017-01-01] MEDS: LACTOBACILLUS ACIDOPHILUS TAB PO SCH ×3 (08:50→18:11)
[2017-01-01] MEDS: PANTOPRAZOLE SOD 40 MG DELAYED RELEASE TAB PO SCH (08:50)
[2017-01-01] MEDS: FAMOTIDINE 20 MG TAB PO SCH ×2 (08:50→20:41)
[2017-01-01] MEDS: ARTIFICIAL TEARS OPTH SOLN 15 ML BTL EACH EYE SCH ×3 (09:00→18:00)
[2017-01-01] MEDS: BACITRACIN OINT 0.9 GM PKT TOPICAL SCH (09:00)
[2017-01-01] MEDS: BENEPROTEIN POWDER 1 PACK G-TUBE SCH ×3 (09:00→18:00)
[2017-01-01] MEDS: COLLAGENASE OINT 30 GM TUBE TOPICAL SCH (09:00)
[2017-01-01] MEDS: BACITRACIN TOP OINT 15 GM TUBE TOPICAL SCH ×2 (09:00→20:46)
--- NOTE | 2017-01-01 09:53 | HHI.PR ---
Subjective Remarks In bed appears tired. Has no change in vision , denies headache. No new motor deficit. Satting well. Wound on trach side is covered with dressing c/d/i. Objective Vitals Vital Signs Date Time Temp Pulse Resp B/P (MAP) Pulse Ox O2 Delivery O2 Flow Rate FiO2 01/01/17 08:00 97.7 63 16 125/84 (98) 99 01/01/17 04:00 97.4 68 18 132/78 (96) 98 01/01/17 00:00 97.3 63 18 99/67 (78) 98 12/31/16 23:27 92/58 (69) 12/31/16 21:30 90/60 (70) 12/31/16 20:00 99.1 66 18 88/57 (67) 98 12/31/16 16:31 98.2 70 120/60 (80) 96 12/31/16 11:49 98.2 72 20 110/60 (77) 96 I/O 12/31/16 12/31/16 12/31/16 01/01/17 01/01/17 01/01/17 07:00 15:00 23:00 07:00 15:00 23:00 Intake Total 2033 ml Output Total 2700 ml 1000 ml 2000 ml Balance -667 ml -1000 ml -2000 ml IV Total 1493 ml Tube Feeding 440 ml Tube Irrigant 100 ml Output Urine Total 2700 ml 1000 ml 2000 ml # Bowel Movements 1 1 Result Diagram: 12/28/16 0446 12/28/16 0446 Imaging Last Impressions Lower Extremity Ultrasound 12/29/16 0000 Signed Impressions: Service Date/Time: December 13:07 - CONCLUSION: No sonographic or Doppler findings of deep venous thrombosis. Joni Shelton MD Carotid Artery Ultrasound 12/27/16 0000 Signed Impressions: Service Date/Time: Tuesday, December 27, 2016 17:19 - CONCLUSION: Mild plaque at the carotid bulb regions bilaterally without a significant stenosis seen. Yosvany Alfaro MD Aorta w/Runoff CTA 12/27/16 0000 Signed Impressions: Service Date/Time: Wednesday, December 28, 2016 17:28 - CONCLUSION: Atherosclerotic calcification seen throughout the arterial system without an area of significant stenosis. The trifurcation vessels are only faintly opacified. Yosvany Alfaro MD Modified Barium Swallow 12/23/16 0000 Signed Impressions: Service Date/Time: Friday, December 23, 2016 09:11 - CONCLUSION: Negative for aspiration.. Remington Woodward MD FACR Chest X-Ray 12/04/16 748 Signed Impressions: Service Date/Time: Sunday, December 04, 2016 18:55 - CONCLUSION: 1. Placement of left central line tip in superior vena cava. No pneumothorax. Mild basilar airspace disease. Small right effusion. Gurwinder Root MD Upper Extremity Ultrasound 12/04/16 0000 Signed Impressions: Service Date/Time: Sunday, December 04, 2016 15:37 - CONCLUSION: 1. Positive for occlusive deep venous thrombosis in the right axillary and subclavian vein. Occlusive superficial thrombus in bilateral cephalic veins. Gurwinder Root MD Angiography 12/01/16 0000 Signed Impressions: Service Date/Time: November 14:02 - CONCLUSION: 1. Right side up on her hemorrhage with angiography of the right bronchial artery revealing no source of active hemorrhage. Empiric embolization was performed. Santos Crockett Jr., MD Chest CT 11/28/16 0000 Signed Impressions: Service Date/Time: Tuesday, November 29, 2016 05:13 - CONCLUSION: 1. Patchy alveolar disease characteristic of edema or pneumonia. 2. Severe emphysema 3. Gastrojejunostomy tube looped in the stomach Harvey Morejon MD Chest/Thorax CTA 11/26/16 0000 Signed Impressions: Service Date/Time: Saturday, November 26, 2016 20:18 - CONCLUSION: 1. Extensive filling defects within the right central bronchial tree characteristic of endobronchial hemorrhage. 2. Consolidating airspace disease in the right upper lobe and right lower lobe characteristic of hemorrhage and post obstructive lung consolidation. 3. Right bronchial artery is identified extending to the central right bronchial region 4. Advanced COPD. Nasir Amanda MD Abdomen X-Ray 11/19/16 06 Signed Impressions: Service Date/Time: Saturday, November 19, 2016 02:44 - CONCLUSION: Unchanged bowel gas pattern potentially relating to an ileus. Santos Crockett Jr., MD Transcranial Doppler Study Complete 10/20/16 06 Signed Impressions: Service Date/Time: October 07:54 - CONCLUSION: Slight interval elevation of flow velocity measurements and ratio on the left Yosvany Polk MD Liver Ultrasound 10/19/16 0000 Signed Impressions: Service Date/Time: Wednesday, October 19, 2016 11:20 - CONCLUSION: 1. Sludge filled gallbladder with thickened wall. 2. Moderate size bilateral pleural effusions and mild upper abdominal ascites. Santos Vazquez MD Cerebral Arteriogram 10/19/16 0000 Signed Impressions: Service Date/Time: Wednesday, October 19, 2016 12:47 - CONCLUSION: Uncomplicated cerebral arteriography with spasmolytic therapy as described in detail above. Yosvany Polk MD Head CT 10/17/16 0000 Signed Impressions: Service Date/Time: Monday, October 17, 2016 15:06 - CONCLUSION: Ventricles are slightly larger without ventriculostomy. Edema in the left hemisphere the brain herniating through the operative site. Remington Woodward MD FACR Infusion Non-thrombolysis 10/14/16 1103 Signed Impressions: Service Date/Time: Friday, October 14, 2016 10:21 - CONCLUSION: 1. Uncomplicated infusion for spasmolysis Harvey Morejon MD Neck CTA 10/07/16 0000 Signed Impressions: Service Date/Time: Friday, October 07, 2016 15:03 - CONCLUSION: 1. Mild carotid bulb atherosclerotic calcification bilaterally. However, no significant stenosis is present in either internal carotid artery. 2. Paranasal sinus mucoperiosteal thickening. 3. Please refer to brain CTA report for description of the intracranial findings. Yosvany Ramirez MD Head CTA 10/07/16 0000 Signed Impressions: Service Date/Time: Friday, October 07, 2016 15:03 - CONCLUSION: 1. 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 2. Large left subdural hematoma measuring 1.3 cm in depth with a significant, 1.6 cm left to right subfalcine shift. Joni Shelton MD Objective Remarks GENERAL: Awake and alert, oriented, appears in nad. SKIN: All toes with digital ischemia, left 2nd finger and right ringer finger with distal digit ischemia. Stage 1-2 decubitus ulcer NECK: Bandage noted at neck in covering trach site c/d/i. CARDIOVASCULAR: Regular rate and rhythm. RESPIRATORY: No accessory muscle use. Clear to auscultation. Breath sounds equal bilaterally. GASTROINTESTINAL: Abdomen soft, non-tender, nondistended. Soft PEG in place, site c/d/i MUSCULOSKELETAL: Extremities without clubbing, cyanosis. Lower extremity edema improved. No obvious deformities. Bilateral radial and DP,PT ++ NEUROLOGICAL: Alert and oriented x3, pleasant. Speech IS soft with short sentences. Procedures 10/13 Four-vessel cerebral angiography with verapamil treatment of vasospasm Status post left frontotemporal parietal craniectomy 10/08 for evacuation subdural hematoma/duraplasty. 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 parietal cranioplasty with replacement of skull flap by Dr Perry neurosurgery on 12/27/16 Date of Insertion: Dec 04, 2016 Line: Central Venous Catheter Side: Left Location: Internal, Jugular A/P Problem List: (1) Subarachnoid hemorrhage due to ruptured aneurysm ICD Code: I60.8 - Other nontraumatic subarachnoid hemorrhage (2) Subdural hematoma ICD Code: I62.00 - Nontraumatic subdural hemorrhage, unspecified (3) Intracranial aneurysm ICD Code: I67.1 - Cerebral aneurysm, nonruptured (4) Respiratory failure ICD Code: J96.90 - Respiratory failure, unspecified, unspecified whether with hypoxia or hypercapnia Status: Acute Assessment and Plan 56-year-old male presents with intracranial bleed, was transferred from [facility]. Subdural hematoma/duraplasty S/P left frontotemporal parietal craniotomy 10/08. S /p left cranioplasty 12/27/16. Respiratory: Pt tolerating recent decannulation. Satting well on room air. Hypotension: Monitor , BP has been stable so far. Status post left frontotemporal parietal craniectomy 10/08 for evacuation subdural hematoma/duraplasty. 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 Initiated 10/13. - Continue Levetiracetam 500 mg per tube q12h. - 10/13 and 10/14 and 10/17) 10/19 left MCA territory vasospasm, status post successful verapamil treatment by IR with 20 mg verapamil - 10/17 CT brain - less hemisphere edema with herniation through left craniotomy site, improved. - Dr. Perry/neurosurgery. S/p left cranioplasty/bone flap 12/27/16. - Echocardiogram 10/14/16 revealed EF 40-45%. Septal hypokinesis. Moderate MR. Severe pulmonary hypertension with pulmonary artery pressures estimated 61 mmHg Limited Echo 11/06: LVEF 60-65%, Trivial mitral and tricuspid regurgitation, No vegetations noted. - On diltiazem's 90 mg by mouth every 6 hours and furosemide 20 mg daily. Monitor BP and if low hold meds. - neurologically stable and doing well, and continued PT and rehabilitation. - PT, OT, speech following. Patient had helmet. Respiratory failure, S/P tracheostomy. Resolved now satting well on Room air. Monitor O2 sat, O2 supplement to keep O2 sat > 94 - S/p Trach Dr. Sullivan/Dr. Collazo 11/01 #8 [place] - CT angiogram chest/neck revealed right centrilobular bleeding likely source right bronchial artery. Repeat CT chest 11/29no visualization of active bleeding.- Resolved - 12/01 - embolization of right bronchial artery by IR- no further bleeding from tracheostomy - Redo trach 11/[address] Sullivan; down sized to uncuffed fenestrated 6 tracheostomy on 12/14 and now capped. - Albuterol/ipratropium aerosols every 6 hours with albuterol aerosols - Dr. Wilson plan is to downsize tube and probably considering tracheostomy removal - Tolerated tracheostomy capping. Has been decannulated. Tolerating room air. Now satting well on Room air, trach removed, trach site wound cultures pending, added bacitracin and wound care consulted for trach site wound. - Monitor Respiratory status Lower extremity edema improved. Ultrasound Doppler reviewed and no DVT. Patient with high risk of bleeding and is not chemoprophylaxis at this time. Continue SCDs and teds for DVT prophylaxis. Ileus- Resolving. Monitor Elevated transaminases Hyperammonemia Severe protein caloric malnutrition- continue with tube feeds as tolerated. - Currently on Glucerna 1.5 goal 60 cc an hour. Consult adaptive physical educator to review formula. - free water per G tube 200mL per tube q6h. - Lansoprazole 30 mg by tube daily for GI prophylaxis will change this to Pepcid - Continue bowel regimen - Reglan DC 12/13- stools amount decreased and thicker in consistency- continue to monitor - Continue PEG feeding. s/p PEG 11/12/16 - speech following for swallowing progress - Tube feeds only at night, patient has regular trach during the daytime, will order ensure pudding - Dietitian consulted to reevaluate tube feeding rate. Right occlusive subclavian, axillary and bilateral superficial cephalic thrombus - limited Echo to evaluate vegetation-neg. ID following - Digital Ischemia with necrosis involving all toes and left 2nd finger and right ringer finger- stable, conservative management - Digits have demarcated, allow auto amputation. Cardizem PO currently and 90 mg every 6 hours (for digital ischemia, Raynaud's) - Continue bacitracin twice a day to affected areas - Central line for IV access. We'll need to be started on systemic anticoagulation at some point however with recent embolization for hemoptysis holding full anticoagulation at this time. - Consult vascular surgeon . Seen by Dr Valente plan for CTA Ao runoff Stage 2 sacral ulcer - ABD dressing with [employer]- staff nurse makes sure to keep area dry. Wound care also consulted. appreciate recommendations. - Turn position every 2 hours - Out of bed to chair activity Course of hospitalization complications Acute hypoxic Respiratory failure secondary to mucous plugging- Resolved Possible healthcare associated pneumonia, Septic Shock- resolved. ARDS - resolved Noncardiogenic/neurogenic pulmonary edema- resolved. Massive Hemoptysis - resolved Aspiration pneumonitis - resolved Cerebral Salt Wasting/SIADH-resolved now hypernatremic - Creatinine currently within normal limits -> resolved. - Monitor urine output Septic and cardiogenic shock- resolved. LV dysfunction secondary to SAH - persistent, now resolved Elevated troponin- secondary to SAH, unlikely to be ACS. - resolved. Pulmonary hypertension s/p PEA arrest 11/28 after ETT dislodgement, hypoxic arrest DVT prop SCD, no chemoprophylaxis secondary to risk for bleeding. Patient with lower extremity edema at this time will do ultrasound Doppler to rule out DVT this patient with high risk of bleeding and is not chemoprophylaxis at this time. Full Code Discussed with patient, nurse, Angie Ferraro and Dr Perry from neurosurgery Discharge Planning S/p left cranioplasty by Dr Perry neurosurgery on 12/27/16. Pending SSI. Placement will be in half-way facility or long-term care. CM following for DC plan. Problem Qualifiers (1) Respiratory failure: Qualified Codes: J96.00 - Acute respiratory failure, unspecified whether with hypoxia or hypercapnia Nancy Guardado MD Jan 01, 2017 09:53
[2017-01-01] MEDS: levETIRAcetam 500 MG/5 ML UDC PEG SCH ×2 (11:06→20:40)
[2017-01-01] MEDS: FERROUS SULFATE 325 MG (65 MG ELEMENTAL IRON) TAB PO SCH ×2 (11:07→18:11)
[2017-01-01 12:00] VITALS: BP 101/72; PULSE 98; RESP 17; TEMP 98.2; O2SAT 96
[2017-01-01 16:00] VITALS: BP 111/68; PULSE 86; RESP 18; TEMP 98.1; O2SAT 96
[2017-01-01 20:00] VITALS: BP 93/59; PULSE 75; RESP 18; TEMP 99; O2SAT 97
[2017-01-01] MEDS: MELATONIN 5 MG TAB PO SCH (20:40)
[2017-01-02] VITALS: BP 98/59; PULSE 61; RESP 18; TEMP 97.9; O2SAT 98
[2017-01-02] MEDS: NS + KCL 20 MEQ INJ 1,000 ML IV SCH ×3 (00:52→17:17)
[2017-01-02] MEDS: cloNIDine HCL 0.1 MG TAB PO SCH ×3 (02:00→17:49)
[2017-01-02 04:00] VITALS: BP 117/72; PULSE 65; RESP 18; TEMP 97.5; O2SAT 99
[2017-01-02] MEDS: CHLORHEXIDINE GLUCONATE 2 % 1 PACK (2 CLOTHS) TOP SCH (04:00)
[2017-01-02] MEDS: DILTIAZEM HCL 90 MG TAB PO SCH ×4 (05:14→17:49)
[2017-01-02] MEDS: CHLORHEXIDINE 0.12% (ORAL KIT) 15 ML CUP MT SCH ×2 (08:00→20:00)
[2017-01-02 08:32] VITALS: BP 114/68; PULSE 65; RESP 16; TEMP 97.5; O2SAT 100
[2017-01-02] MEDS: COLLAGENASE OINT 30 GM TUBE TOPICAL SCH (09:00)
[2017-01-02] MEDS: BACITRACIN TOP OINT 15 GM TUBE TOPICAL SCH ×2 (09:00→21:34)
[2017-01-02] MEDS: SODIUM CHLORIDE 0.9% FLUSH 5 ML FLUSH IVF SCH ×2 (09:00→21:00)
[2017-01-02] MEDS: BACITRACIN OINT 0.9 GM PKT TOPICAL SCH (09:00)
[2017-01-02] MEDS: BENEPROTEIN POWDER 1 PACK G-TUBE SCH ×3 (09:00→18:00)
[2017-01-02] MEDS: SODIUM CHLORIDE 0.9% FLUSH 10 ML FLUSH IV FLUSH SCH (09:00)
[2017-01-02] MEDS: ARTIFICIAL TEARS OPTH SOLN 15 ML BTL EACH EYE SCH ×3 (09:00→18:00)
[2017-01-02] MEDS: LACTOBACILLUS ACIDOPHILUS TAB PO SCH ×3 (09:07→17:49)
[2017-01-02] MEDS: ASCORBIC ACID 500 MG TAB PO SCH ×2 (09:07→21:34)
[2017-01-02] MEDS: levETIRAcetam 500 MG/5 ML UDC PEG SCH ×2 (09:08→21:34)
[2017-01-02] MEDS: PANTOPRAZOLE SODIUM 40 MG VIAL IVP SCH (09:08)
[2017-01-02] MEDS: DOCUSATE SODIUM 100 MG CAP PO SCH ×2 (09:08→21:34)
[2017-01-02] MEDS: FAMOTIDINE 20 MG TAB PO SCH ×2 (09:08→21:34)
[2017-01-02] MEDS: PANTOPRAZOLE SOD 40 MG DELAYED RELEASE TAB PO SCH (09:08)
--- NOTE | 2017-01-02 11:08 | HHI.PR ---
Subjective Remarks Patient in bed, appears in nad. He has no headache, vision decicit at baseline right eye blurriness. He is eating. No n/v/d/c. Denies chest pain or sob. No fevers or chills. Objective Vitals Vital Signs Date Time Temp Pulse Resp B/P (MAP) Pulse Ox O2 Delivery O2 Flow Rate FiO2 01/02/17 08:32 97.5 65 16 114/68 (83) 100 01/02/17 04:00 97.5 65 18 117/72 (87) 99 01/02/17 00:00 97.9 61 18 98/59 (72) 98 01/01/17 20:00 99.0 75 18 93/59 (70) 97 01/01/17 16:00 98.1 86 18 111/68 (82) 96 01/01/17 12:00 98.2 98 17 101/72 (82) 96 I/O 01/01/17 01/01/17 01/01/17 01/02/17 01/02/17 01/02/17 07:00 15:00 23:00 07:00 15:00 23:00 Intake Total 760 ml Output Total 2000 ml 400 ml 2400 ml Balance -2000 ml 360 ml -2400 ml Intake Oral 760 ml Output Urine Total 2000 ml 400 ml 2400 ml # Bowel Movements 1 4 2 Imaging Last Impressions Lower Extremity Ultrasound 12/29/16 0000 Signed Impressions: Service Date/Time: December 13:07 - CONCLUSION: No sonographic or Doppler findings of deep venous thrombosis. Joni Shelton MD Carotid Artery Ultrasound 12/27/16 0000 Signed Impressions: Service Date/Time: Tuesday, December 27, 2016 17:19 - CONCLUSION: Mild plaque at the carotid bulb regions bilaterally without a significant stenosis seen. Yosvany Alfaro MD Aorta w/Runoff CTA 12/27/16 0000 Signed Impressions: Service Date/Time: Wednesday, December 28, 2016 17:28 - CONCLUSION: Atherosclerotic calcification seen throughout the arterial system without an area of significant stenosis. The trifurcation vessels are only faintly opacified. Yovsany Alfaro MD Modified Barium Swallow 12/23/16 0000 Signed Impressions: Service Date/Time: Friday, December 23, 2016 09:11 - CONCLUSION: Negative for aspiration.. Remington Woodward MD FACR Chest X-Ray 12/04/16 1753 Signed Impressions: Service Date/Time: Sunday, December 04, 2016 18:55 - CONCLUSION: 1. Placement of left central line tip in superior vena cava. No pneumothorax. Mild basilar airspace disease. Small right effusion. Gurwinder Root MD Upper Extremity Ultrasound 12/04/16 0000 Signed Impressions: Service Date/Time: Sunday, December 04, 2016 15:37 - CONCLUSION: 1. Positive for occlusive deep venous thrombosis in the right axillary and subclavian vein. Occlusive superficial thrombus in bilateral cephalic veins. Gurwinder Root MD Angiography 12/01/16 0000 Signed Impressions: Service Date/Time: November 14:02 - CONCLUSION: 1. Right side up on her hemorrhage with angiography of the right bronchial artery revealing no source of active hemorrhage. Empiric embolization was performed. Santos Crockett Jr., MD Chest CT 11/28/16 0000 Signed Impressions: Service Date/Time: Tuesday, November 29, 2016 05:13 - CONCLUSION: 1. Patchy alveolar disease characteristic of edema or pneumonia. 2. Severe emphysema 3. Gastrojejunostomy tube looped in the stomach Harvey Morejon MD Chest/Thorax CTA 11/26/16 0000 Signed Impressions: Service Date/Time: Saturday, November 26, 2016 20:18 - CONCLUSION: 1. Extensive filling defects within the right central bronchial tree characteristic of endobronchial hemorrhage. 2. Consolidating airspace disease in the right upper lobe and right lower lobe characteristic of hemorrhage and post obstructive lung consolidation. 3. Right bronchial artery is identified extending to the central right bronchial region 4. Advanced COPD. Nasir Amanda MD Abdomen X-Ray 11/19/16 06 Signed Impressions: Service Date/Time: Saturday, November 19, 2016 02:44 - CONCLUSION: Unchanged bowel gas pattern potentially relating to an ileus. Santos Crockett Jr., MD Transcranial Doppler Study Complete 10/20/16599 Signed Impressions: Service Date/Time: October 07:54 - CONCLUSION: Slight interval elevation of flow velocity measurements and ratio on the left Yosvany Polk MD Liver Ultrasound 10/19/16 0000 Signed Impressions: Service Date/Time: Wednesday, October 19, 2016 11:20 - CONCLUSION: 1. Sludge filled gallbladder with thickened wall. 2. Moderate size bilateral pleural effusions and mild upper abdominal ascites. Santos Vazquez MD Cerebral Arteriogram 10/19/16 0000 Signed Impressions: Service Date/Time: Wednesday, October 19, 2016 12:47 - CONCLUSION: Uncomplicated cerebral arteriography with spasmolytic therapy as described in detail above. Yosvany Polk MD Head CT 10/17/16 0000 Signed Impressions: Service Date/Time: Monday, October 17, 2016 15:06 - CONCLUSION: Ventricles are slightly larger without ventriculostomy. Edema in the left hemisphere the brain herniating through the operative site. Remington Woodward MD FACR Infusion Non-thrombolysis 10/14/16 1103 Signed Impressions: Service Date/Time: Friday, October 14, 2016 10:21 - CONCLUSION: 1. Uncomplicated infusion for spasmolysis Harvey Morejon MD Neck CTA 10/07/16 0000 Signed Impressions: Service Date/Time: Friday, October 07, 2016 15:03 - CONCLUSION: 1. Mild carotid bulb atherosclerotic calcification bilaterally. However, no significant stenosis is present in either internal carotid artery. 2. Paranasal sinus mucoperiosteal thickening. 3. Please refer to brain CTA report for description of the intracranial findings. Yosvany Ramirez MD Head CTA 10/07/16 0000 Signed Impressions: Service Date/Time: Friday, October 07, 2016 15:03 - CONCLUSION: 1. 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 2. Large left subdural hematoma measuring 1.3 cm in depth with a significant, 1.6 cm left to right subfalcine shift. Joni Shelton MD Objective Remarks GENERAL: Awake and alert, oriented, appears in nad. SKIN: All toes with digital ischemia, left 2nd finger and right ringer finger with distal digit ischemia. Stage 1-2 decubitus ulcer NECK: Bandage noted at neck in covering trach site c/d/i. CARDIOVASCULAR: Regular rate and rhythm. RESPIRATORY: No accessory muscle use. Clear to auscultation. Breath sounds equal bilaterally. GASTROINTESTINAL: Abdomen soft, non-tender, nondistended. Soft PEG in place, site c/d/i MUSCULOSKELETAL: Extremities without clubbing, cyanosis. Lower extremity edema improved. No obvious deformities. Bilateral radial and DP,PT ++ NEUROLOGICAL: Alert and oriented x3, pleasant. Speech IS soft with short sentences. Procedures 10/13 Four-vessel cerebral angiography with verapamil treatment of vasospasm Status post left frontotemporal parietal craniectomy 10/08 for evacuation subdural hematoma/duraplasty. 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 parietal cranioplasty with replacement of skull flap by Dr Perry neurosurgery on 12/27/16 Date of Insertion: Dec 04, 2016 Line: Central Venous Catheter Side: Left Location: Internal, Jugular A/P Problem List: (1) Subarachnoid hemorrhage due to ruptured aneurysm ICD Code: I60.8 - Other nontraumatic subarachnoid hemorrhage (2) Subdural hematoma ICD Code: I62.00 - Nontraumatic subdural hemorrhage, unspecified (3) Intracranial aneurysm ICD Code: I67.1 - Cerebral aneurysm, nonruptured (4) Respiratory failure ICD Code: J96.90 - Respiratory failure, unspecified, unspecified whether with hypoxia or hypercapnia Status: Acute Assessment and Plan 56-year-old male presents with intracranial bleed, was transferred from [facility]. Subdural hematoma/duraplasty S/P left frontotemporal parietal craniotomy 10/08. S /p left cranioplasty 12/27/16. Respiratory: Pt tolerating recent decannulation. Satting well on room air. Hypotension: Monitor , BP has been stable so far. Status post left frontotemporal parietal craniectomy 10/08 for evacuation subdural hematoma/duraplasty. 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 Initiated 10/13. - Continue Levetiracetam 500 mg per tube q12h. - 10/13 and 10/14 and 10/17) 10/19 left MCA territory vasospasm, status post successful verapamil treatment by IR with 20 mg verapamil - 10/17 CT brain - less hemisphere edema with herniation through left craniotomy site, improved. - Dr. Perry/neurosurgery. S/p left cranioplasty/bone flap 12/27/16. - Echocardiogram 10/14/16 revealed EF 40-45%. Septal hypokinesis. Moderate MR. Severe pulmonary hypertension with pulmonary artery pressures estimated 61 mmHg Limited Echo 11/06: LVEF 60-65%, Trivial mitral and tricuspid regurgitation, No vegetations noted. - On diltiazem's 90 mg by mouth every 6 hours and furosemide 20 mg daily. Monitor BP and if low hold meds. - neurologically stable and doing well, and continued PT and rehabilitation. - PT, OT, speech following. Patient had helmet. Respiratory failure, S/P tracheostomy. Resolved now satting well on Room air. Monitor O2 sat, O2 supplement to keep O2 sat > 94 - S/p Trach Dr. Sullivan/Dr. Collazo 11/01 #8 [place] - CT angiogram chest/neck revealed right centrilobular bleeding likely source right bronchial artery. Repeat CT chest 11/29no visualization of active bleeding.- Resolved - 12/01 - embolization of right bronchial artery by IR- no further bleeding from tracheostomy - Redo trach 11/[address] Sullivan; down sized to uncuffed fenestrated 6 tracheostomy on 12/14 and now capped. - Albuterol/ipratropium aerosols every 6 hours with albuterol aerosols - Dr. Wilson plan is to downsize tube and probably considering tracheostomy removal - Tolerated tracheostomy capping. Has been decannulated. Tolerating room air. Now satting well on Room air, trach removed, trach site wound cultures pending, added bacitracin and wound care consulted for trach site wound. - Monitor Respiratory status Lower extremity edema improved. Ultrasound Doppler reviewed and no DVT. Patient with high risk of bleeding and is not chemoprophylaxis at this time. Continue SCDs and teds for DVT prophylaxis. Ileus- Resolving. Monitor Elevated transaminases Hyperammonemia Severe protein caloric malnutrition- continue with tube feeds as tolerated. - Currently on Glucerna 1.5 goal 60 cc an hour. Consult formula weigher to review formula. - free water per G tube 200mL per tube q6h. - Lansoprazole 30 mg by tube daily for GI prophylaxis will change this to Pepcid - Continue bowel regimen - Reglan DC 12/13- stools amount decreased and thicker in consistency- continue to monitor - Continue PEG feeding. s/p PEG 11/12/16 - speech following for swallowing progress - Tube feeds only at night, patient has regular trach during the daytime, will order ensure pudding - Dietitian consulted to reevaluate tube feeding rate. Right occlusive subclavian, axillary and bilateral superficial cephalic thrombus - limited Echo to evaluate vegetation-neg. ID following - Digital Ischemia with necrosis involving all toes and left 2nd finger and right ringer finger- stable, conservative management - Digits have demarcated, allow auto amputation. Cardizem PO currently and 90 mg every 6 hours (for digital ischemia, Raynaud's) - Continue bacitracin twice a day to affected areas - Central line for IV access. We'll need to be started on systemic anticoagulation at some point however with recent embolization for hemoptysis holding full anticoagulation at this time. - Consult vascular surgeon . Seen by Dr Valente plan for CTA Ao runoff Stage 2 sacral ulcer - ABD dressing with [employer]- staff nurse makes sure to keep area dry. Wound care also consulted. appreciate recommendations. - Turn position every 2 hours - Out of bed to chair activity Course of hospitalization complications Acute hypoxic Respiratory failure secondary to mucous plugging- Resolved Possible healthcare associated pneumonia, Septic Shock- resolved. ARDS - resolved Noncardiogenic/neurogenic pulmonary edema- resolved. Massive Hemoptysis - resolved Aspiration pneumonitis - resolved Cerebral Salt Wasting/SIADH-resolved now hypernatremic - Creatinine currently within normal limits -> resolved. - Monitor urine output Septic and cardiogenic shock- resolved. LV dysfunction secondary to SAH - persistent, now resolved Elevated troponin- secondary to SAH, unlikely to be ACS. - resolved. Pulmonary hypertension s/p PEA arrest 11/28 after ETT dislodgement, hypoxic arrest DVT prop SCD, no chemoprophylaxis secondary to risk for bleeding. Patient with lower extremity edema at this time will do ultrasound Doppler to rule out DVT this patient with high risk of bleeding and is not chemoprophylaxis at this time. Full Code Discussed with patient, nurse, Angie Ferraro and Dr Perry from neurosurgery Discharge Planning S/p left cranioplasty by Dr Perry neurosurgery on 12/27/16. He is fairly stable for DC when arrangements done. Pending SSI. Placement will be in nursing home facility or long-term care. CM following for DC plan. Problem Qualifiers (1) Respiratory failure: Qualified Codes: J96.00 - Acute respiratory failure, unspecified whether with hypoxia or hypercapnia Nancy Guardado MD Jan 02, 2017 11:08
[2017-01-02 12:45] VITALS: BP 97/61; PULSE 74; RESP 16; TEMP 98.4; O2SAT 99
[2017-01-02] MEDS: FERROUS SULFATE 325 MG (65 MG ELEMENTAL IRON) TAB PO SCH ×2 (14:21→17:49)
[2017-01-02 16:42] VITALS: BP 101/64; PULSE 81; RESP 16; TEMP 98.2; O2SAT 97
[2017-01-02 20:40] VITALS: BP 120/61; PULSE 72; RESP 18; TEMP 98.6; O2SAT 99
[2017-01-02] MEDS: MELATONIN 5 MG TAB PO SCH (21:34)
[2017-01-03] VITALS (7 sets, daily range): BP systolic 96–129; BP diastolic 59–69; PULSE 61–78; RESP 18; TEMP 97.5–98.9; O2SAT 97–100
[2017-01-03] MEDS: DILTIAZEM HCL 90 MG TAB PO SCH ×4 (00:07→18:00)
[2017-01-03] MEDS: cloNIDine HCL 0.1 MG TAB PO SCH ×3 (02:06→18:09)
[2017-01-03] MEDS: CHLORHEXIDINE GLUCONATE 2 % 1 PACK (2 CLOTHS) TOP SCH (04:00)
[2017-01-03] MEDS: NS + KCL 20 MEQ INJ 1,000 ML IV SCH ×2 (05:23→12:56)
[2017-01-03] MEDS: CHLORHEXIDINE 0.12% (ORAL KIT) 15 ML CUP MT SCH ×2 (08:00→20:00)
[2017-01-03] MEDS: SODIUM CHLORIDE 0.9% FLUSH 5 ML FLUSH IVF SCH ×2 (09:00→21:00)
[2017-01-03] MEDS: SODIUM CHLORIDE 0.9% FLUSH 10 ML FLUSH IV FLUSH SCH (09:00)
[2017-01-03] MEDS: BENEPROTEIN POWDER 1 PACK G-TUBE SCH ×3 (09:00→18:00)
[2017-01-03] MEDS: BACITRACIN OINT 0.9 GM PKT TOPICAL SCH (09:00)
[2017-01-03] MEDS: PANTOPRAZOLE SODIUM 40 MG VIAL IVP SCH (10:16)
[2017-01-03] MEDS: DOCUSATE SODIUM 100 MG CAP PO SCH ×2 (10:16→22:33)
[2017-01-03] MEDS: PANTOPRAZOLE SOD 40 MG DELAYED RELEASE TAB PO SCH (10:16)
[2017-01-03] MEDS: ASCORBIC ACID 500 MG TAB PO SCH ×2 (10:16→22:34)
[2017-01-03] MEDS: FAMOTIDINE 20 MG TAB PO SCH ×2 (10:16→22:33)
[2017-01-03] MEDS: LACTOBACILLUS ACIDOPHILUS TAB PO SCH ×3 (10:16→18:00)
[2017-01-03] MEDS: levETIRAcetam 500 MG/5 ML UDC PEG SCH ×2 (10:17→22:34)
[2017-01-03] MEDS: ARTIFICIAL TEARS OPTH SOLN 15 ML BTL EACH EYE SCH ×3 (10:18→18:00)
[2017-01-03] MEDS: BACITRACIN TOP OINT 15 GM TUBE TOPICAL SCH ×2 (10:19→22:34)
[2017-01-03] MEDS: COLLAGENASE OINT 30 GM TUBE TOPICAL SCH (10:20)
[2017-01-03] MEDS: FERROUS SULFATE 325 MG (65 MG ELEMENTAL IRON) TAB PO SCH ×2 (12:54→18:09)
--- NOTE | 2017-01-03 13:42 | HHI.PR ---
Subjective Remarks The patient is in bed and he appears in not in acute distress at this time. Is eating, no nausea or vomiting no diarrhea or constipation. Has headache on the surgical site with slight palpation. No change in physician, no new motor deficit. There's no fever or chills. Objective Vitals Vital Signs Date Time Temp Pulse Resp B/P (MAP) Pulse Ox O2 Delivery O2 Flow Rate FiO2 01/03/17 12:29 98.1 78 18 98/59 (72) 100 01/03/17 08:49 97.5 61 18 108/69 (82) 98 01/03/17 05:00 98.6 63 18 123/68 (86) 98 01/03/17 02:05 18 99/60 (73) 97 01/03/17 00:24 98.3 68 18 129/68 (88) 98 01/02/17 20:40 98.6 72 18 120/61 (80) 99 01/02/17 16:42 98.2 81 16 101/64 (76) 97 I/O 01/02/17 01/02/17 01/02/17 01/03/17 01/03/17 01/03/17 07:00 15:00 23:00 07:00 15:00 23:00 Intake Total 1130 ml 480 ml 613 ml Output Total 2900 ml 850 ml 1600 ml Balance 1130 ml -2900 ml -370 ml -987 ml Intake Oral 480 ml Tube Feeding 1130 ml 613 ml Output Urine Total 2900 ml 850 ml 1600 ml # Bowel Movements 3 1 Objective Remarks GENERAL: Awake and alert, oriented, appears in nad. SKIN: All toes with digital ischemia, left 2nd finger and right ringer finger with distal digit ischemia. Stage 1-2 decubitus ulcer NECK: Bandage noted at neck in covering trach site c/d/i. CARDIOVASCULAR: Regular rate and rhythm. RESPIRATORY: No accessory muscle use. Clear to auscultation. Breath sounds equal bilaterally. GASTROINTESTINAL: Abdomen soft, non-tender, nondistended. Soft PEG in place, site c/d/i MUSCULOSKELETAL: Extremities without clubbing, cyanosis. Lower extremity edema improved. No obvious deformities. Bilateral radial and DP,PT ++ NEUROLOGICAL: Alert and oriented x3, pleasant. Speech IS soft with short sentences. Procedures 10/13 Four-vessel cerebral angiography with verapamil treatment of vasospasm Status post left frontotemporal parietal craniectomy 10/08 for evacuation subdural hematoma/duraplasty. 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 parietal cranioplasty with replacement of skull flap by Dr Perry neurosurgery on 12/27/16 Date of Insertion: Dec 04, 2016 Line: Central Venous Catheter Side: Left Location: Internal, Jugular A/P Problem List: (1) Subarachnoid hemorrhage due to ruptured aneurysm ICD Code: I60.8 - Other nontraumatic subarachnoid hemorrhage (2) Subdural hematoma ICD Code: I62.00 - Nontraumatic subdural hemorrhage, unspecified (3) Intracranial aneurysm ICD Code: I67.1 - Cerebral aneurysm, nonruptured (4) Respiratory failure ICD Code: J96.90 - Respiratory failure, unspecified, unspecified whether with hypoxia or hypercapnia Status: Acute Assessment and Plan 56-year-old male presents with intracranial bleed, was transferred from [facility]. Subdural hematoma/duraplasty S/P left frontotemporal parietal craniotomy 10/08. S /p left cranioplasty 12/27/16. Respiratory: Pt tolerating recent decannulation. Satting well on room air. Hypotension: Monitor , BP has been stable so far. Status post left frontotemporal parietal craniectomy 10/08 for evacuation subdural hematoma/duraplasty. 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 Initiated 10/13. - Continue Levetiracetam 500 mg per tube q12h. - 10/13 and 10/14 and 10/17) 10/19 left MCA territory vasospasm, status post successful verapamil treatment by IR with 20 mg verapamil - 10/17 CT brain - less hemisphere edema with herniation through left craniotomy site, improved. - Dr. Perry/neurosurgery. S/p left cranioplasty/bone flap 12/27/16. - Echocardiogram 10/14/16 revealed EF 40-45%. Septal hypokinesis. Moderate MR. Severe pulmonary hypertension with pulmonary artery pressures estimated 61 mmHg Limited Echo 11/06: LVEF 60-65%, Trivial mitral and tricuspid regurgitation, No vegetations noted. - On diltiazem's 90 mg by mouth every 6 hours and furosemide 20 mg daily. Monitor BP and if low hold meds. - neurologically stable and doing well, and continued PT and rehabilitation. - PT, OT, speech following. Patient had helmet. Respiratory failure, S/P tracheostomy. Resolved now satting well on Room air. Monitor O2 sat, O2 supplement to keep O2 sat > 94 - S/p Trach Dr. Sullivan/Dr. Collazo 11/01 #8 [place] - CT angiogram chest/neck revealed right centrilobular bleeding likely source right bronchial artery. Repeat CT chest 11/29no visualization of active bleeding.- Resolved - 12/01 - embolization of right bronchial artery by IR- no further bleeding from tracheostomy - Redo trach 11/[address] Sullivan; down sized to uncuffed fenestrated 6 tracheostomy on 12/14 and now capped. - Albuterol/ipratropium aerosols every 6 hours with albuterol aerosols - Dr. Wilson plan is to downsize tube and probably considering tracheostomy removal - Tolerated tracheostomy capping. Has been decannulated. Tolerating room air. Now satting well on Room air, trach removed, trach site wound cultures pending, added bacitracin and wound care consulted for trach site wound. - Monitor Respiratory status Lower extremity edema improved. Ultrasound Doppler reviewed and no DVT. Patient with high risk of bleeding and is not chemoprophylaxis at this time. Continue SCDs and teds for DVT prophylaxis. Ileus- Resolving. Monitor Elevated transaminases Hyperammonemia Severe protein caloric malnutrition- continue with tube feeds as tolerated. - Currently on Glucerna 1.5 goal 60 cc an hour. Consult applied behavior specialist to review formula. - free water per G tube 200mL per tube q6h. - Lansoprazole 30 mg by tube daily for GI prophylaxis will change this to Pepcid - Continue bowel regimen - Reglan DC 12/13- stools amount decreased and thicker in consistency- continue to monitor - Continue PEG feeding. s/p PEG 11/12/16 - speech following for swallowing progress - Tube feeds only at night, patient has regular trach during the daytime, will order ensure pudding - Dietitian consulted to reevaluate tube feeding rate. Right occlusive subclavian, axillary and bilateral superficial cephalic thrombus - limited Echo to evaluate vegetation-neg. ID following - Digital Ischemia with necrosis involving all toes and left 2nd finger and right ringer finger- stable, conservative management - Digits have demarcated, allow auto amputation. Cardizem PO currently and 90 mg every 6 hours (for digital ischemia, Raynaud's) - Continue bacitracin twice a day to affected areas - Central line for IV access. We'll need to be started on systemic anticoagulation at some point however with recent embolization for hemoptysis holding full anticoagulation at this time. - Consult vascular surgeon . Seen by Dr Valente plan for CTA Ao runoff Stage 2 sacral ulcer - ABD dressing with [employer]- staff nurse makes sure to keep area dry. Wound care also consulted. appreciate recommendations. - Turn position every 2 hours - Out of bed to chair activity Course of hospitalization complications Acute hypoxic Respiratory failure secondary to mucous plugging- Resolved Possible healthcare associated pneumonia, Septic Shock- resolved. ARDS - resolved Noncardiogenic/neurogenic pulmonary edema- resolved. Massive Hemoptysis - resolved Aspiration pneumonitis - resolved Cerebral Salt Wasting/SIADH-resolved now hypernatremic - Creatinine currently within normal limits -> resolved. - Monitor urine output Septic and cardiogenic shock- resolved. LV dysfunction secondary to SAH - persistent, now resolved Elevated troponin- secondary to SAH, unlikely to be ACS. - resolved. Pulmonary hypertension s/p PEA arrest 11/28 after ETT dislodgement, hypoxic arrest DVT prop SCD, no chemoprophylaxis secondary to risk for bleeding. Patient with lower extremity edema at this time will do ultrasound Doppler to rule out DVT this patient with high risk of bleeding and is not chemoprophylaxis at this time. Full Code Discussed with patient, nurse, Angie Ferraro and Dr Perry from neurosurgery Discharge Planning S/p left cranioplasty by Dr Perry neurosurgery on 12/27/16. He is fairly stable for DC when arrangements done. Pending SSI. Placement will be in halfway facility or long-term care. CM following for DC plan. Problem Qualifiers (1) Respiratory failure: Qualified Codes: J96.00 - Acute respiratory failure, unspecified whether with hypoxia or hypercapnia Nancy Guardado MD Jan 03, 2017 13:42
--- NOTE | 2017-01-03 15:12 | PD.WCN.NOT ---
Wound Consult Description: Patient seen on [address] [place] for evaluation of red swollen tissue around PEG site. Peeled back gauze dressing in place to reveal Communicated with: JOSE CRUZ [place] and Call placed to Doctor Geo for orders Recommendation: Please cleanse peg tube site wound with normal saline and cover with Optifoam AG non adhesive just over wound bed and secure with paper tape. Change dressing every 3 days or PRN if saturated or dislodged. Please apply skin prep before securing dressing with tape. Additional Information: Patient seen on [address] [place] for evaluation of red swollen tissue around PEG site. Peeled back gauze dressing in place to reveal wound with 100% red clean tissue. Drainage on gauze pad is brown/ sanguinous without odor and minimal Periwound is slightly erythematous and tender. Wound measures ~1cm x ~1cm x ~<0.1cm.Wound culture is positive for gram positive cocci and yeast. Replaced gauze. Patient is currently being treated with bacitracin ointment and covered with drain sponge. Recommend Optifoam AG non adhesive be applied under tube over wound bed to cushion wound from tube and absorb drainage and provide antimicrobial silver. Discussed with JOSE CRUZ [place] and she will apply Optifoam AG non adhesive as recommended. Zina Rodney [facility] Jan 03, 2017 15:12
[2017-01-03] MEDS: MELATONIN 5 MG TAB PO SCH (22:34)
[2017-01-04] VITALS: BP 101/57; PULSE 65; RESP 18; TEMP 98.6; O2SAT 100
[2017-01-04] MEDS: cloNIDine HCL 0.1 MG TAB PO SCH ×3 (02:00→18:39)
[2017-01-04 04:00] VITALS: BP 116/70; PULSE 67; RESP 18; TEMP 98.6; O2SAT 98
[2017-01-04] MEDS: CHLORHEXIDINE GLUCONATE 2 % 1 PACK (2 CLOTHS) TOP SCH (04:00)
[2017-01-04] MEDS: DILTIAZEM HCL 90 MG TAB PO SCH ×4 (05:36→18:39)
[2017-01-04] MEDS: CHLORHEXIDINE 0.12% (ORAL KIT) 15 ML CUP MT SCH ×2 (08:00→20:00)
[2017-01-04 08:16] VITALS: BP 139/64; PULSE 67; RESP 20; TEMP 98.3; O2SAT 99
[2017-01-04] MEDS: ASCORBIC ACID 500 MG TAB PO SCH ×2 (08:28→21:22)
[2017-01-04] MEDS: DOCUSATE SODIUM 100 MG CAP PO SCH ×2 (08:28→21:22)
[2017-01-04] MEDS: PANTOPRAZOLE SOD 40 MG DELAYED RELEASE TAB PO SCH (08:28)
[2017-01-04] MEDS: LACTOBACILLUS ACIDOPHILUS TAB PO SCH ×3 (08:28→18:39)
[2017-01-04] MEDS: FAMOTIDINE 20 MG TAB PO SCH ×3 (08:29→21:22)
[2017-01-04] MEDS: BACITRACIN OINT 0.9 GM PKT TOPICAL SCH (08:37)
[2017-01-04] MEDS: BACITRACIN TOP OINT 15 GM TUBE TOPICAL SCH ×2 (08:37→21:23)
[2017-01-04] MEDS: BENEPROTEIN POWDER 1 PACK G-TUBE SCH ×3 (09:00→18:00)
[2017-01-04] MEDS: SODIUM CHLORIDE 0.9% FLUSH 10 ML FLUSH IV FLUSH SCH (09:00)
[2017-01-04] MEDS: SODIUM CHLORIDE 0.9% FLUSH 5 ML FLUSH IVF SCH (09:00)
[2017-01-04] MEDS: PANTOPRAZOLE SODIUM 40 MG VIAL IVP SCH (09:00)
[2017-01-04] MEDS: levETIRAcetam 500 MG/5 ML UDC PEG SCH ×2 (10:28→21:00)
[2017-01-04] MEDS: ARTIFICIAL TEARS OPTH SOLN 15 ML BTL EACH EYE SCH ×3 (10:29→18:00)
[2017-01-04] MEDS: COLLAGENASE OINT 30 GM TUBE TOPICAL SCH (10:30)
--- NOTE | 2017-01-04 10:45 | HHI.PR ---
Subjective Remarks The patient is in bed appears in acute distress. Ate his breakfast in the morning. No nausea, vomiting diarrhea or constipation. Denies headaches. No fever or chills. Objective Vitals Vital Signs Date Time Temp Pulse Resp B/P (MAP) Pulse Ox O2 Delivery O2 Flow Rate FiO2 01/04/17 08:16 98.3 67 20 139/64 (89) 99 01/04/17 04:00 98.6 67 18 116/70 (85) 98 01/04/17 00:00 98.6 65 18 101/57 (72) 100 01/03/17 20:00 98.9 69 18 101/60 (74) 98 01/03/17 16:00 98.0 74 18 96/61 (73) 98 01/03/17 12:29 98.1 78 18 98/59 (72) 100 I/O 01/03/17 01/03/17 01/03/17 01/04/17 01/04/17 01/04/17 07:00 15:00 23:00 07:00 15:00 23:00 Intake Total 613 ml 640 ml 720 ml Output Total 1600 ml 2450 ml 1700 ml 1300 ml Balance -987 ml -1810 ml -980 ml -1300 ml Intake Oral 640 ml 720 ml Tube Feeding 613 ml Output Urine Total 1600 ml 2450 ml 1700 ml 1300 ml # Bowel Movements 1 2 Imaging Last Impressions Lower Extremity Ultrasound 12/29/16 0000 Signed Impressions: Service Date/Time: December 13:07 - CONCLUSION: No sonographic or Doppler findings of deep venous thrombosis. Joni Shelton MD Carotid Artery Ultrasound 12/27/16 0000 Signed Impressions: Service Date/Time: Tuesday, December 27, 2016 17:19 - CONCLUSION: Mild plaque at the carotid bulb regions bilaterally without a significant stenosis seen. Yosvany Alfaro MD Aorta w/Runoff CTA 12/27/16 0000 Signed Impressions: Service Date/Time: Wednesday, December 28, 2016 17:28 - CONCLUSION: Atherosclerotic calcification seen throughout the arterial system without an area of significant stenosis. The trifurcation vessels are only faintly opacified. Yosvany Alfaro MD Modified Barium Swallow 12/23/16 0000 Signed Impressions: Service Date/Time: Friday, December 23, 2016 09:11 - CONCLUSION: Negative for aspiration.. Remington Woodward MD FACR Chest X-Ray 12/04/16 3943 Signed Impressions: Service Date/Time: Sunday, December 04, 2016 18:55 - CONCLUSION: 1. Placement of left central line tip in superior vena cava. No pneumothorax. Mild basilar airspace disease. Small right effusion. Gurwinder Root MD Upper Extremity Ultrasound 12/04/16 0000 Signed Impressions: Service Date/Time: Sunday, December 04, 2016 15:37 - CONCLUSION: 1. Positive for occlusive deep venous thrombosis in the right axillary and subclavian vein. Occlusive superficial thrombus in bilateral cephalic veins. Gurwinder Root MD Angiography 12/01/16 0000 Signed Impressions: Service Date/Time: November 14:02 - CONCLUSION: 1. Right side up on her hemorrhage with angiography of the right bronchial artery revealing no source of active hemorrhage. Empiric embolization was performed. Santos Crockett Jr., MD Chest CT 11/28/16 0000 Signed Impressions: Service Date/Time: Tuesday, November 29, 2016 05:13 - CONCLUSION: 1. Patchy alveolar disease characteristic of edema or pneumonia. 2. Severe emphysema 3. Gastrojejunostomy tube looped in the stomach Harvey Morejon MD Chest/Thorax CTA 11/26/16 0000 Signed Impressions: Service Date/Time: Saturday, November 26, 2016 20:18 - CONCLUSION: 1. Extensive filling defects within the right central bronchial tree characteristic of endobronchial hemorrhage. 2. Consolidating airspace disease in the right upper lobe and right lower lobe characteristic of hemorrhage and post obstructive lung consolidation. 3. Right bronchial artery is identified extending to the central right bronchial region 4. Advanced COPD. Nasir Amanda MD Abdomen X-Ray 11/19/16599 Signed Impressions: Service Date/Time: Saturday, November 19, 2016 02:44 - CONCLUSION: Unchanged bowel gas pattern potentially relating to an ileus. Santos Crockett Jr., MD Transcranial Doppler Study Complete 10/20/16599 Signed Impressions: Service Date/Time: October 07:54 - CONCLUSION: Slight interval elevation of flow velocity measurements and ratio on the left Yosvany Polk MD Liver Ultrasound 10/19/16 0000 Signed Impressions: Service Date/Time: Wednesday, October 19, 2016 11:20 - CONCLUSION: 1. Sludge filled gallbladder with thickened wall. 2. Moderate size bilateral pleural effusions and mild upper abdominal ascites. Santos Vazquez MD Cerebral Arteriogram 10/19/16 0000 Signed Impressions: Service Date/Time: Wednesday, October 19, 2016 12:47 - CONCLUSION: Uncomplicated cerebral arteriography with spasmolytic therapy as described in detail above. Yosvany Polk MD Head CT 10/17/16 0000 Signed Impressions: Service Date/Time: Monday, October 17, 2016 15:06 - CONCLUSION: Ventricles are slightly larger without ventriculostomy. Edema in the left hemisphere the brain herniating through the operative site. Remington Woodward MD FACR Infusion Non-thrombolysis 10/14/16 1103 Signed Impressions: Service Date/Time: Friday, October 14, 2016 10:21 - CONCLUSION: 1. Uncomplicated infusion for spasmolysis Harvey Morejon MD Neck CTA 10/07/16 0000 Signed Impressions: Service Date/Time: Friday, October 07, 2016 15:03 - CONCLUSION: 1. Mild carotid bulb atherosclerotic calcification bilaterally. However, no significant stenosis is present in either internal carotid artery. 2. Paranasal sinus mucoperiosteal thickening. 3. Please refer to brain CTA report for description of the intracranial findings. Yosvany Ramirez MD Head CTA 10/07/16 0000 Signed Impressions: Service Date/Time: Friday, October 07, 2016 15:03 - CONCLUSION: 1. 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 2. Large left subdural hematoma measuring 1.3 cm in depth with a significant, 1.6 cm left to right subfalcine shift. Joni Shelton MD Objective Remarks GENERAL: Awake and alert, oriented, appears in nad. SKIN: All toes with digital ischemia, left 2nd finger and right ringer finger with distal digit ischemia. Stage 1-2 decubitus ulcer NECK: Bandage noted at neck in covering trach site c/d/i. CARDIOVASCULAR: Regular rate and rhythm. RESPIRATORY: No accessory muscle use. Clear to auscultation. Breath sounds equal bilaterally. GASTROINTESTINAL: Abdomen soft, non-tender, nondistended. Soft PEG in place, site c/d/i MUSCULOSKELETAL: Extremities without clubbing, cyanosis. Lower extremity edema improved. No obvious deformities. Bilateral radial and DP,PT ++ NEUROLOGICAL: Alert and oriented x3, pleasant. Speech IS soft with short sentences. Procedures 10/13 Four-vessel cerebral angiography with verapamil treatment of vasospasm Status post left frontotemporal parietal craniectomy 10/08 for evacuation subdural hematoma/duraplasty. 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 parietal cranioplasty with replacement of skull flap by Dr Perry neurosurgery on 12/27/16 Date of Insertion: Dec 04, 2016 Line: Central Venous Catheter Side: Left Location: Internal, Jugular A/P Problem List: (1) Subarachnoid hemorrhage due to ruptured aneurysm ICD Code: I60.8 - Other nontraumatic subarachnoid hemorrhage (2) Subdural hematoma ICD Code: I62.00 - Nontraumatic subdural hemorrhage, unspecified (3) Intracranial aneurysm ICD Code: I67.1 - Cerebral aneurysm, nonruptured (4) Respiratory failure ICD Code: J96.90 - Respiratory failure, unspecified, unspecified whether with hypoxia or hypercapnia Status: Acute Assessment and Plan 56-year-old male presents with intracranial bleed, was transferred from [facility]. Subdural hematoma/duraplasty S/P left frontotemporal parietal craniotomy 10/08. S /p left cranioplasty 12/27/16. Respiratory: Pt tolerating recent decannulation. Satting well on room air. Hypotension: Monitor , BP has been stable so far. Status post left frontotemporal parietal craniectomy 10/08 for evacuation subdural hematoma/duraplasty. 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 Initiated 10/13. - Continue Levetiracetam 500 mg per tube q12h. - 10/13 and 10/14 and 10/17) 10/19 left MCA territory vasospasm, status post successful verapamil treatment by IR with 20 mg verapamil - 10/17 CT brain - less hemisphere edema with herniation through left craniotomy site, improved. - Dr. Perry/neurosurgery. S/p left cranioplasty/bone flap 12/27/16. - Echocardiogram 10/14/16 revealed EF 40-45%. Septal hypokinesis. Moderate MR. Severe pulmonary hypertension with pulmonary artery pressures estimated 61 mmHg Limited Echo 11/06: LVEF 60-65%, Trivial mitral and tricuspid regurgitation, No vegetations noted. - On diltiazem's 90 mg by mouth every 6 hours and furosemide 20 mg daily. Monitor BP and if low hold meds. - neurologically stable and doing well, and continued PT and rehabilitation. - PT, OT, speech following. Patient had helmet. Respiratory failure, S/P tracheostomy. Resolved now satting well on Room air. Monitor O2 sat, O2 supplement to keep O2 sat > 94 - S/p Trach Dr. Sullivan/Dr. Collazo 11/01 #8 [place] - CT angiogram chest/neck revealed right centrilobular bleeding likely source right bronchial artery. Repeat CT chest 11/29no visualization of active bleeding.- Resolved - 12/01 - embolization of right bronchial artery by IR- no further bleeding from tracheostomy - Redo trach 11/[address] Sullivan; down sized to uncuffed fenestrated 6 tracheostomy on 12/14 and now capped. - Albuterol/ipratropium aerosols every 6 hours with albuterol aerosols - Dr. Wilson plan is to downsize tube and probably considering tracheostomy removal - Tolerated tracheostomy capping. Has been decannulated. Tolerating room air. Now satting well on Room air, trach removed, trach site wound cultures pending, added bacitracin and wound care consulted for trach site wound. - Monitor Respiratory status Lower extremity edema improved. Ultrasound Doppler reviewed and no DVT. Patient with high risk of bleeding and is not chemoprophylaxis at this time. Continue SCDs and teds for DVT prophylaxis. Ileus- Resolving. Monitor Elevated transaminases Hyperammonemia Severe protein caloric malnutrition- continue with tube feeds as tolerated. - Currently on Glucerna 1.5 goal 60 cc an hour. Consult human factors ergonomist to review formula. - free water per G tube 200mL per tube q6h. - Lansoprazole 30 mg by tube daily for GI prophylaxis will change this to Pepcid - Continue bowel regimen - Reglan DC 12/13- stools amount decreased and thicker in consistency- continue to monitor - Continue PEG feeding. s/p PEG 11/12/16 - speech following for swallowing progress - Tube feeds only at night, patient has regular trach during the daytime, will order ensure pudding - Dietitian consulted to reevaluate tube feeding rate. Right occlusive subclavian, axillary and bilateral superficial cephalic thrombus - limited Echo to evaluate vegetation-neg. ID following - Digital Ischemia with necrosis involving all toes and left 2nd finger and right ringer finger- stable, conservative management - Digits have demarcated, allow auto amputation. Cardizem PO currently and 90 mg every 6 hours (for digital ischemia, Raynaud's) - Continue bacitracin twice a day to affected areas - Central line for IV access. We'll need to be started on systemic anticoagulation at some point however with recent embolization for hemoptysis holding full anticoagulation at this time. - Consult vascular surgeon . Seen by Dr Valente plan for CTA Ao runoff Stage 2 sacral ulcer - ABD dressing with [employer]- staff nurse makes sure to keep area dry. Wound care also consulted. appreciate recommendations. - Turn position every 2 hours - Out of bed to chair activity Course of hospitalization complications Acute hypoxic Respiratory failure secondary to mucous plugging- Resolved Possible healthcare associated pneumonia, Septic Shock- resolved. ARDS - resolved Noncardiogenic/neurogenic pulmonary edema- resolved. Massive Hemoptysis - resolved Aspiration pneumonitis - resolved Cerebral Salt Wasting/SIADH-resolved now hypernatremic - Creatinine currently within normal limits -> resolved. - Monitor urine output Septic and cardiogenic shock- resolved. LV dysfunction secondary to SAH - persistent, now resolved Elevated troponin- secondary to SAH, unlikely to be ACS. - resolved. Pulmonary hypertension s/p PEA arrest 11/28 after ETT dislodgement, hypoxic arrest DVT prop SCD, no chemoprophylaxis secondary to risk for bleeding. Patient with lower extremity edema at this time will do ultrasound Doppler to rule out DVT this patient with high risk of bleeding and is not chemoprophylaxis at this time. Full Code Discussed with patient, nurse, Angie Ferraro and Dr Perry from neurosurgery Discharge Planning S/p left cranioplasty by Dr Perry neurosurgery on 12/27/16. He is fairly stable for DC when arrangements done. Pending SSI. Placement will be in snf facility or long-term care. CM following for DC plan. Problem Qualifiers (1) Respiratory failure: Qualified Codes: J96.00 - Acute respiratory failure, unspecified whether with hypoxia or hypercapnia Nancy Guardado MD Jan 04, 2017 10:45
[2017-01-04 11:21] VITALS: BP 134/62; PULSE 68; RESP 20; TEMP 98.1; O2SAT 98
[2017-01-04] MEDS: FERROUS SULFATE 325 MG (65 MG ELEMENTAL IRON) TAB PO SCH ×2 (14:05→18:39)
[2017-01-04 15:26] VITALS: BP 157/70; PULSE 74; RESP 20; TEMP 98.4; O2SAT 99
[2017-01-04] MEDS: NS + KCL 20 MEQ INJ 1,000 ML IV SCH (19:17)
[2017-01-04 20:30] VITALS: BP 114/62; PULSE 67; RESP 18; TEMP 98.2; O2SAT 97
[2017-01-04] MEDS: MELATONIN 5 MG TAB PO SCH (21:22)
[2017-01-05] VITALS (7 sets, daily range): BP systolic 94–111; BP diastolic 61–70; PULSE 61–82; RESP 18–20; TEMP 97.6–98.7; O2SAT 97–99
[2017-01-05] MEDS: NS + KCL 20 MEQ INJ 1,000 ML IV SCH ×3 (00:58→14:30)
[2017-01-05] MEDS: SODIUM CHLORIDE 0.9% FLUSH 5 ML FLUSH IVF SCH ×3 (00:59→21:00)
[2017-01-05] MEDS: DILTIAZEM HCL 90 MG TAB PO SCH ×5 (01:00→23:18)
[2017-01-05] MEDS: cloNIDine HCL 0.1 MG TAB PO SCH ×3 (02:00→17:27)
[2017-01-05] MEDS: CHLORHEXIDINE GLUCONATE 2 % 1 PACK (2 CLOTHS) TOP SCH (03:29)
[2017-01-05] MEDS: CHLORHEXIDINE 0.12% (ORAL KIT) 15 ML CUP MT SCH ×2 (08:00→20:00)
[2017-01-05] MEDS: SODIUM CHLORIDE 0.9% FLUSH 10 ML FLUSH IV FLUSH SCH (09:00)
[2017-01-05] MEDS: BENEPROTEIN POWDER 1 PACK G-TUBE SCH ×3 (09:00→17:27)
[2017-01-05] MEDS: BACITRACIN OINT 0.9 GM PKT TOPICAL SCH (09:00)
[2017-01-05] MEDS: ARTIFICIAL TEARS OPTH SOLN 15 ML BTL EACH EYE SCH ×3 (09:52→17:27)
[2017-01-05] MEDS: PANTOPRAZOLE SODIUM 40 MG VIAL IVP SCH (09:54)
[2017-01-05] MEDS: levETIRAcetam 500 MG/5 ML UDC PEG SCH ×2 (09:54→23:17)
[2017-01-05] MEDS: COLLAGENASE OINT 30 GM TUBE TOPICAL SCH (09:55)
[2017-01-05] MEDS: PANTOPRAZOLE SOD 40 MG DELAYED RELEASE TAB PO SCH (09:55)
[2017-01-05] MEDS: BACITRACIN TOP OINT 15 GM TUBE TOPICAL SCH ×2 (09:55→23:19)
[2017-01-05] MEDS: FAMOTIDINE 20 MG TAB PO SCH ×2 (09:55→23:18)
[2017-01-05] MEDS: LACTOBACILLUS ACIDOPHILUS TAB PO SCH ×3 (09:55→17:29)
[2017-01-05] MEDS: DOCUSATE SODIUM 100 MG CAP PO SCH ×2 (09:56→23:18)
[2017-01-05] MEDS: ASCORBIC ACID 500 MG TAB PO SCH ×2 (10:39→23:18)
--- NOTE | 2017-01-05 11:20 | HHI.PR ---
Subjective Remarks Slight headache, no change in vision. No n/v/d/c. Denies fever or chills. Objective Vitals Vital Signs Date Time Temp Pulse Resp B/P (MAP) Pulse Ox O2 Delivery O2 Flow Rate FiO2 01/05/17 08:08 98.3 61 18 108/68 (81) 98 01/05/17 04:00 98.2 64 20 100/63 (75) 97 01/05/17 02:03 98.3 61 18 103/61 (75) 98 01/05/17 00:00 98.3 62 20 106/64 (78) 98 01/04/17 20:30 98.2 67 18 114/62 (79) 97 01/04/17 15:26 98.4 74 20 157/70 (99) 99 01/04/17 11:21 98.1 68 20 134/62 (86) 98 I/O 01/04/17 01/04/17 01/04/17 01/05/17 01/05/17 01/05/17 07:00 15:00 23:00 07:00 15:00 23:00 Intake Total 720 ml 720 ml 5 ml 1995 ml Output Total 1700 ml 1800 ml 600 ml 450 ml Balance -980 ml -1080 ml -595 ml 1545 ml Intake Oral 720 ml 720 ml IV Total 5 ml 1400 ml Autotransfusion 595 ml Output Urine Total 1700 ml 1800 ml 600 ml 450 ml # Bowel Movements 1 0 Imaging Last Impressions Lower Extremity Ultrasound 12/29/16 0000 Signed Impressions: Service Date/Time: December 13:07 - CONCLUSION: No sonographic or Doppler findings of deep venous thrombosis. Joni Shelton MD Carotid Artery Ultrasound 12/27/16 0000 Signed Impressions: Service Date/Time: Tuesday, December 27, 2016 17:19 - CONCLUSION: Mild plaque at the carotid bulb regions bilaterally without a significant stenosis seen. Yosvany Alfaro MD Aorta w/Runoff CTA 12/27/16 0000 Signed Impressions: Service Date/Time: Wednesday, December 28, 2016 17:28 - CONCLUSION: Atherosclerotic calcification seen throughout the arterial system without an area of significant stenosis. The trifurcation vessels are only faintly opacified. Yosvany Alfaro MD Modified Barium Swallow 12/23/16 0000 Signed Impressions: Service Date/Time: Friday, December 23, 2016 09:11 - CONCLUSION: Negative for aspiration.. Remington Woodward MD FACR Chest X-Ray 12/04/16 970 Signed Impressions: Service Date/Time: Sunday, December 04, 2016 18:55 - CONCLUSION: 1. Placement of left central line tip in superior vena cava. No pneumothorax. Mild basilar airspace disease. Small right effusion. Gurwinder Root MD Upper Extremity Ultrasound 12/04/16 0000 Signed Impressions: Service Date/Time: Sunday, December 04, 2016 15:37 - CONCLUSION: 1. Positive for occlusive deep venous thrombosis in the right axillary and subclavian vein. Occlusive superficial thrombus in bilateral cephalic veins. Gurwinder Root MD Angiography 12/01/16 0000 Signed Impressions: Service Date/Time: November 14:02 - CONCLUSION: 1. Right side up on her hemorrhage with angiography of the right bronchial artery revealing no source of active hemorrhage. Empiric embolization was performed. Santos Crockett Jr., MD Chest CT 11/28/16 0000 Signed Impressions: Service Date/Time: Tuesday, November 29, 2016 05:13 - CONCLUSION: 1. Patchy alveolar disease characteristic of edema or pneumonia. 2. Severe emphysema 3. Gastrojejunostomy tube looped in the stomach Harvey Morejon MD Chest/Thorax CTA 11/26/16 0000 Signed Impressions: Service Date/Time: Saturday, November 26, 2016 20:18 - CONCLUSION: 1. Extensive filling defects within the right central bronchial tree characteristic of endobronchial hemorrhage. 2. Consolidating airspace disease in the right upper lobe and right lower lobe characteristic of hemorrhage and post obstructive lung consolidation. 3. Right bronchial artery is identified extending to the central right bronchial region 4. Advanced COPD. Nasir Amanda MD Abdomen X-Ray 11/19/16 0600 Signed Impressions: Service Date/Time: Saturday, November 19, 2016 02:44 - CONCLUSION: Unchanged bowel gas pattern potentially relating to an ileus. Santos Crockett Jr., MD Transcranial Doppler Study Complete 10/20/16 0600 Signed Impressions: Service Date/Time: October 07:54 - CONCLUSION: Slight interval elevation of flow velocity measurements and ratio on the left Yosvany Polk MD Liver Ultrasound 10/19/16 0000 Signed Impressions: Service Date/Time: Wednesday, October 19, 2016 11:20 - CONCLUSION: 1. Sludge filled gallbladder with thickened wall. 2. Moderate size bilateral pleural effusions and mild upper abdominal ascites. Santos Vazquez MD Cerebral Arteriogram 10/19/16 0000 Signed Impressions: Service Date/Time: Wednesday, October 19, 2016 12:47 - CONCLUSION: Uncomplicated cerebral arteriography with spasmolytic therapy as described in detail above. Yosvany Polk MD Head CT 10/17/16 0000 Signed Impressions: Service Date/Time: Monday, October 17, 2016 15:06 - CONCLUSION: Ventricles are slightly larger without ventriculostomy. Edema in the left hemisphere the brain herniating through the operative site. Remington Woodward MD FACR Infusion Non-thrombolysis 10/14/16 1103 Signed Impressions: Service Date/Time: Friday, October 14, 2016 10:21 - CONCLUSION: 1. Uncomplicated infusion for spasmolysis Harvey Morejon MD Neck CTA 10/07/16 0000 Signed Impressions: Service Date/Time: Friday, October 07, 2016 15:03 - CONCLUSION: 1. Mild carotid bulb atherosclerotic calcification bilaterally. However, no significant stenosis is present in either internal carotid artery. 2. Paranasal sinus mucoperiosteal thickening. 3. Please refer to brain CTA report for description of the intracranial findings. Yosvany Ramirez MD Head CTA 10/07/16 0000 Signed Impressions: Service Date/Time: Friday, October 07, 2016 15:03 - CONCLUSION: 1. 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 2. Large left subdural hematoma measuring 1.3 cm in depth with a significant, 1.6 cm left to right subfalcine shift. Joni Shelton MD Objective Remarks GENERAL: Awake and alert, oriented, appears in nad. SKIN: All toes with digital ischemia, left 2nd finger and right ringer finger with distal digit ischemia. Stage 1-2 decubitus ulcer NECK: Bandage noted at neck in covering trach site c/d/i. CARDIOVASCULAR: Regular rate and rhythm. RESPIRATORY: No accessory muscle use. Clear to auscultation. Breath sounds equal bilaterally. GASTROINTESTINAL: Abdomen soft, non-tender, nondistended. Soft PEG in place, site c/d/i MUSCULOSKELETAL: Extremities without clubbing, cyanosis. Lower extremity edema improved. No obvious deformities. Bilateral radial and DP,PT ++ NEUROLOGICAL: Alert and oriented x3, pleasant. Speech IS soft with short sentences. Procedures 10/13 Four-vessel cerebral angiography with verapamil treatment of vasospasm Status post left frontotemporal parietal craniectomy 10/08 for evacuation subdural hematoma/duraplasty. 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 parietal cranioplasty with replacement of skull flap by Dr Perry neurosurgery on 12/27/16 Date of Insertion: Dec 04, 2016 Line: Central Venous Catheter Side: Left Location: Internal, Jugular A/P Problem List: (1) Subarachnoid hemorrhage due to ruptured aneurysm ICD Code: I60.8 - Other nontraumatic subarachnoid hemorrhage (2) Subdural hematoma ICD Code: I62.00 - Nontraumatic subdural hemorrhage, unspecified (3) Intracranial aneurysm ICD Code: I67.1 - Cerebral aneurysm, nonruptured (4) Respiratory failure ICD Code: J96.90 - Respiratory failure, unspecified, unspecified whether with hypoxia or hypercapnia Status: Acute Assessment and Plan 56-year-old male presents with intracranial bleed, was transferred from [facility]. Subdural hematoma/duraplasty S/P left frontotemporal parietal craniotomy 10/08. S /p left cranioplasty 12/27/16. Respiratory: Pt tolerating recent decannulation. Satting well on room air. Hypotension: Monitor , BP has been stable so far. Status post left frontotemporal parietal craniectomy 10/08 for evacuation subdural hematoma/duraplasty. 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 Initiated 10/13. - Continue Levetiracetam 500 mg per tube q12h. - 10/13 and 10/14 and 10/17) 10/19 left MCA territory vasospasm, status post successful verapamil treatment by IR with 20 mg verapamil - 10/17 CT brain - less hemisphere edema with herniation through left craniotomy site, improved. - Dr. Perry/neurosurgery. S/p left cranioplasty/bone flap 12/27/16. - Echocardiogram 10/14/16 revealed EF 40-45%. Septal hypokinesis. Moderate MR. Severe pulmonary hypertension with pulmonary artery pressures estimated 61 mmHg Limited Echo 11/06: LVEF 60-65%, Trivial mitral and tricuspid regurgitation, No vegetations noted. - On diltiazem's 90 mg by mouth every 6 hours and furosemide 20 mg daily. Monitor BP and if low hold meds. - neurologically stable and doing well, and continued PT and rehabilitation. - PT, OT, speech following. Patient had helmet. Respiratory failure, S/P tracheostomy. Resolved now satting well on Room air. Monitor O2 sat, O2 supplement to keep O2 sat > 94 - S/p Trach Dr. Sullivan/Dr. Collazo 11/01 #8 [place] - CT angiogram chest/neck revealed right centrilobular bleeding likely source right bronchial artery. Repeat CT chest 11/29no visualization of active bleeding.- Resolved - 12/01 - embolization of right bronchial artery by IR- no further bleeding from tracheostomy - Redo trach 11/[address] Sullivan; down sized to uncuffed fenestrated 6 tracheostomy on 12/14 and now capped. - Albuterol/ipratropium aerosols every 6 hours with albuterol aerosols - Dr. Wilson plan is to downsize tube and probably considering tracheostomy removal - Tolerated tracheostomy capping. Has been decannulated. Tolerating room air. Now satting well on Room air, trach removed, trach site wound cultures pending, added bacitracin and wound care consulted for trach site wound. - Monitor Respiratory status Lower extremity edema improved. Ultrasound Doppler reviewed and no DVT. Patient with high risk of bleeding and is not chemoprophylaxis at this time. Continue SCDs and teds for DVT prophylaxis. Ileus- Resolving. Monitor Elevated transaminases Hyperammonemia Severe protein caloric malnutrition- continue with tube feeds as tolerated. - Currently on Glucerna 1.5 goal 60 cc an hour. Consult it trainee to review formula. - free water per G tube 200mL per tube q6h. - Lansoprazole 30 mg by tube daily for GI prophylaxis will change this to Pepcid - Continue bowel regimen - Reglan DC 12/13- stools amount decreased and thicker in consistency- continue to monitor - Continue PEG feeding. s/p PEG 11/12/16 - speech following for swallowing progress - Tube feeds only at night, patient has regular trach during the daytime, will order ensure pudding - Dietitian consulted to reevaluate tube feeding rate. Right occlusive subclavian, axillary and bilateral superficial cephalic thrombus - limited Echo to evaluate vegetation-neg. ID following - Digital Ischemia with necrosis involving all toes and left 2nd finger and right ringer finger- stable, conservative management - Digits have demarcated, allow auto amputation. Cardizem PO currently and 90 mg every 6 hours (for digital ischemia, Raynaud's) - Continue bacitracin twice a day to affected areas - Central line for IV access. We'll need to be started on systemic anticoagulation at some point however with recent embolization for hemoptysis holding full anticoagulation at this time. - Consult vascular surgeon . Seen by Dr Valente plan for CTA Ao runoff Stage 2 sacral ulcer - ABD dressing with [employer]- staff nurse makes sure to keep area dry. Wound care also consulted. appreciate recommendations. - Turn position every 2 hours - Out of bed to chair activity Course of hospitalization complications Acute hypoxic Respiratory failure secondary to mucous plugging- Resolved Possible healthcare associated pneumonia, Septic Shock- resolved. ARDS - resolved Noncardiogenic/neurogenic pulmonary edema- resolved. Massive Hemoptysis - resolved Aspiration pneumonitis - resolved Cerebral Salt Wasting/SIADH-resolved now hypernatremic - Creatinine currently within normal limits -> resolved. - Monitor urine output Septic and cardiogenic shock- resolved. LV dysfunction secondary to SAH - persistent, now resolved Elevated troponin- secondary to SAH, unlikely to be ACS. - resolved. Pulmonary hypertension s/p PEA arrest 11/28 after ETT dislodgement, hypoxic arrest DVT prop SCD, no chemoprophylaxis secondary to risk for bleeding. Patient with lower extremity edema at this time will do ultrasound Doppler to rule out DVT this patient with high risk of bleeding and is not chemoprophylaxis at this time. Full Code Discussed with patient, nurse, Angie Ferraro and Dr Perry from neurosurgery Discharge Planning S/p left cranioplasty by Dr Perry neurosurgery on 12/27/16. He is fairly stable for DC when arrangements done. Pending SSI. Placement will be in jail facility or long-term care. CM following for DC plan. Problem Qualifiers (1) Respiratory failure: Qualified Codes: J96.00 - Acute respiratory failure, unspecified whether with hypoxia or hypercapnia Nancy Guardado MD Jan 05, 2017 11:20
[2017-01-05] MEDS: FERROUS SULFATE 325 MG (65 MG ELEMENTAL IRON) TAB PO SCH ×2 (12:13→17:28)
[2017-01-05] MEDS: MELATONIN 5 MG TAB PO SCH (23:18)
[2017-01-06] VITALS: BP 128/79; PULSE 79; RESP 18; TEMP 97.8; O2SAT 98
[2017-01-06] MEDS: cloNIDine HCL 0.1 MG TAB PO SCH ×3 (02:39→17:31)
[2017-01-06] MEDS: NS + KCL 20 MEQ INJ 1,000 ML IV SCH ×3 (02:39→21:30)
[2017-01-06 04:00] VITALS: BP 116/72; PULSE 66; RESP 18; TEMP 97.6; O2SAT 100
[2017-01-06] MEDS: CHLORHEXIDINE GLUCONATE 2 % 1 PACK (2 CLOTHS) TOP SCH (04:00)
[2017-01-06] MEDS: DILTIAZEM HCL 90 MG TAB PO SCH ×3 (06:24→17:31)
[2017-01-06] MEDS: CHLORHEXIDINE 0.12% (ORAL KIT) 15 ML CUP MT SCH ×2 (08:00→20:00)
[2017-01-06] MEDS: SODIUM CHLORIDE 0.9% FLUSH 5 ML FLUSH IVF SCH ×2 (09:00→21:30)
[2017-01-06] MEDS: SODIUM CHLORIDE 0.9% FLUSH 10 ML FLUSH IV FLUSH SCH (09:00)
[2017-01-06] MEDS: BENEPROTEIN POWDER 1 PACK G-TUBE SCH ×3 (09:00→17:32)
[2017-01-06] MEDS: BACITRACIN OINT 0.9 GM PKT TOPICAL SCH (09:00)
--- NOTE | 2017-01-06 09:30 | HHI.PR ---
Subjective Remarks Sleepy today in the morning. No fever ro chills. Headache/pain at the surgical site with palpation. Otherwise no pain, no change in vision or new motor deficit. Eating better. Will have dietitian for calorie count and will evaluate if we can remove feeding tube as patient it seems has adequate PO intake. Objective Vitals Vital Signs Date Time Temp Pulse Resp B/P (MAP) Pulse Ox O2 Delivery O2 Flow Rate FiO2 01/06/17 04:00 97.6 66 18 116/72 (87) 100 01/06/17 00:00 97.8 79 18 128/79 (95) 98 01/05/17 20:00 97.9 82 18 103/66 (78) 98 01/05/17 16:27 98.7 77 18 111/70 (84) 99 01/05/17 12:20 97.6 77 18 94/62 (73) 99 I/O 01/05/17 01/05/17 01/05/17 01/06/17 01/06/17 01/06/17 07:00 15:00 23:00 07:00 15:00 23:00 Intake Total 5 ml 2290 ml 280 ml Output Total 600 ml 450 ml 1050 ml 1800 ml Balance -595 ml 1840 ml -770 ml -1800 ml IV Total 5 ml 1695 ml 280 ml Autotransfusion 595 ml Output Urine Total 600 ml 450 ml 1050 ml 1800 ml # Bowel Movements 0 2 Objective Remarks GENERAL: Awake and alert, oriented, appears in nad. SKIN: All toes with digital ischemia, left 2nd finger and right ringer finger with distal digit ischemia. Stage 1-2 decubitus ulcer NECK: Bandage noted at neck in covering trach site c/d/i. CARDIOVASCULAR: Regular rate and rhythm. RESPIRATORY: No accessory muscle use. Clear to auscultation. Breath sounds equal bilaterally. GASTROINTESTINAL: Abdomen soft, non-tender, nondistended. Soft PEG in place, site c/d/i MUSCULOSKELETAL: Extremities without clubbing, cyanosis. Lower extremity edema improved. No obvious deformities. Bilateral radial and DP,PT ++ NEUROLOGICAL: Alert and oriented x3, pleasant. Speech IS soft with short sentences. Procedures 10/13 Four-vessel cerebral angiography with verapamil treatment of vasospasm Status post left frontotemporal parietal craniectomy 10/08 for evacuation subdural hematoma/duraplasty. 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 parietal cranioplasty with replacement of skull flap by Dr Perry neurosurgery on 12/27/16 Date of Insertion: Dec 04, 2016 Line: Central Venous Catheter Side: Left Location: Internal, Jugular A/P Problem List: (1) Subarachnoid hemorrhage due to ruptured aneurysm ICD Code: I60.8 - Other nontraumatic subarachnoid hemorrhage (2) Subdural hematoma ICD Code: I62.00 - Nontraumatic subdural hemorrhage, unspecified (3) Intracranial aneurysm ICD Code: I67.1 - Cerebral aneurysm, nonruptured (4) Respiratory failure ICD Code: J96.90 - Respiratory failure, unspecified, unspecified whether with hypoxia or hypercapnia Status: Acute Assessment and Plan 56-year-old male presents with intracranial bleed, was transferred from [facility]. Subdural hematoma/duraplasty S/P left frontotemporal parietal craniotomy 10/08. S /p left cranioplasty 12/27/16. Respiratory: Pt tolerating recent decannulation. Satting well on room air. Hypotension: Monitor , BP has been stable so far. Status post left frontotemporal parietal craniectomy 10/08 for evacuation subdural hematoma/duraplasty. 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 Initiated 10/13. - Continue Levetiracetam 500 mg per tube q12h. - 10/13 and 10/14 and 10/17) 10/19 left MCA territory vasospasm, status post successful verapamil treatment by IR with 20 mg verapamil - 10/17 CT brain - less hemisphere edema with herniation through left craniotomy site, improved. - Dr. Perry/neurosurgery. S/p left cranioplasty/bone flap 12/27/16. - Echocardiogram 10/14/16 revealed EF 40-45%. Septal hypokinesis. Moderate MR. Severe pulmonary hypertension with pulmonary artery pressures estimated 61 mmHg Limited Echo 11/06: LVEF 60-65%, Trivial mitral and tricuspid regurgitation, No vegetations noted. - On diltiazem's 90 mg by mouth every 6 hours and furosemide 20 mg daily. Monitor BP and if low hold meds. - neurologically stable and doing well, and continued PT and rehabilitation. - PT, OT, speech following. Patient had helmet. -Eating better. Will have dietitian for calorie count and will evaluate if we can remove feeding tube as patient it seems has adequate PO intake. Respiratory failure, S/P tracheostomy. Resolved now satting well on Room air. Monitor O2 sat, O2 supplement to keep O2 sat > 94 - S/p Trach Dr. Sullivan/Dr. Collazo 11/01 #8 [place] - CT angiogram chest/neck revealed right centrilobular bleeding likely source right bronchial artery. Repeat CT chest 11/29no visualization of active bleeding.- Resolved - 12/01 - embolization of right bronchial artery by IR- no further bleeding from tracheostomy - Redo trach 11/[address] Sullivan; down sized to uncuffed fenestrated 6 tracheostomy on 12/14 and now capped. - Albuterol/ipratropium aerosols every 6 hours with albuterol aerosols - Dr. Wilson plan is to downsize tube and probably considering tracheostomy removal - Tolerated tracheostomy capping. Has been decannulated. Tolerating room air. Now satting well on Room air, trach removed, trach site wound cultures pending, added bacitracin and wound care consulted for trach site wound. - Monitor Respiratory status Lower extremity edema improved. Ultrasound Doppler reviewed and no DVT. Patient with high risk of bleeding and is not chemoprophylaxis at this time. Continue SCDs and teds for DVT prophylaxis. Ileus- Resolving. Monitor Elevated transaminases Hyperammonemia Severe protein caloric malnutrition- continue with tube feeds as tolerated. - Currently on Glucerna 1.5 goal 60 cc an hour. Consult welfare adviser to review formula. - free water per G tube 200mL per tube q6h. - Lansoprazole 30 mg by tube daily for GI prophylaxis will change this to Pepcid - Continue bowel regimen - Reglan DC 12/13- stools amount decreased and thicker in consistency- continue to monitor - Continue PEG feeding. s/p PEG 11/12/16 - speech following for swallowing progress - Tube feeds only at night, patient has regular trach during the daytime, will order ensure pudding - Dietitian consulted to reevaluate tube feeding rate. Right occlusive subclavian, axillary and bilateral superficial cephalic thrombus - limited Echo to evaluate vegetation-neg. ID following - Digital Ischemia with necrosis involving all toes and left 2nd finger and right ringer finger- stable, conservative management - Digits have demarcated, allow auto amputation. Cardizem PO currently and 90 mg every 6 hours (for digital ischemia, Raynaud's) - Continue bacitracin twice a day to affected areas - Central line for IV access. We'll need to be started on systemic anticoagulation at some point however with recent embolization for hemoptysis holding full anticoagulation at this time. - Consult vascular surgeon . Seen by Dr Valente plan for CTA Ao runoff Stage 2 sacral ulcer - ABD dressing with [employer]- staff nurse makes sure to keep area dry. Wound care also consulted. appreciate recommendations. - Turn position every 2 hours - Out of bed to chair activity Course of hospitalization complications Acute hypoxic Respiratory failure secondary to mucous plugging- Resolved Possible healthcare associated pneumonia, Septic Shock- resolved. ARDS - resolved Noncardiogenic/neurogenic pulmonary edema- resolved. Massive Hemoptysis - resolved Aspiration pneumonitis - resolved Cerebral Salt Wasting/SIADH-resolved now hypernatremic - Creatinine currently within normal limits -> resolved. - Monitor urine output Septic and cardiogenic shock- resolved. LV dysfunction secondary to SAH - persistent, now resolved Elevated troponin- secondary to SAH, unlikely to be ACS. - resolved. Pulmonary hypertension s/p PEA arrest 11/28 after ETT dislodgement, hypoxic arrest DVT prop SCD, no chemoprophylaxis secondary to risk for bleeding. Patient with lower extremity edema at this time will do ultrasound Doppler to rule out DVT this patient with high risk of bleeding and is not chemoprophylaxis at this time. Full Code Discussed with patient, nurse, Angie Ferraro and Dr Perry from neurosurgery Discharge Planning S/p left cranioplasty by Dr Perry neurosurgery on 12/27/16. He is fairly stable for DC when arrangements done. Pending SSI. Placement will be in halfway facility or long-term care. CM following for DC plan. Eating better. Will have dietitian for calorie count and will evaluate if we can remove feeding tube as patient it seems has adequate PO intake. Problem Qualifiers (1) Respiratory failure: Qualified Codes: J96.00 - Acute respiratory failure, unspecified whether with hypoxia or hypercapnia Nancy Guardado MD Jan 06, 2017 09:30
[2017-01-06] MEDS: LACTOBACILLUS ACIDOPHILUS TAB PO SCH ×3 (10:41→17:31)
[2017-01-06] MEDS: levETIRAcetam 500 MG/5 ML UDC PEG SCH ×2 (10:41→21:28)
[2017-01-06] MEDS: DOCUSATE SODIUM 100 MG CAP PO SCH ×2 (10:42→21:28)
[2017-01-06] MEDS: PANTOPRAZOLE SOD 40 MG DELAYED RELEASE TAB PO SCH (10:42)
[2017-01-06] MEDS: COLLAGENASE OINT 30 GM TUBE TOPICAL SCH (10:43)
[2017-01-06] MEDS: ASCORBIC ACID 500 MG TAB PO SCH ×2 (10:43→21:28)
[2017-01-06] MEDS: FAMOTIDINE 20 MG TAB PO SCH ×2 (10:43→21:28)
[2017-01-06] MEDS: BACITRACIN TOP OINT 15 GM TUBE TOPICAL SCH ×2 (10:44→21:30)
[2017-01-06] MEDS: ARTIFICIAL TEARS OPTH SOLN 15 ML BTL EACH EYE SCH ×3 (10:44→17:33)
[2017-01-06 10:46] VITALS: BP 124/75; PULSE 73; RESP 18; TEMP 97.5; O2SAT 99
[2017-01-06] MEDS: PANTOPRAZOLE SODIUM 40 MG VIAL IVP SCH (10:48)
[2017-01-06 13:16] VITALS: BP 123/62; PULSE 80; RESP 18; TEMP 97.3; O2SAT 99
[2017-01-06] MEDS: FERROUS SULFATE 325 MG (65 MG ELEMENTAL IRON) TAB PO SCH ×2 (13:35→17:31)
[2017-01-06 16:44] VITALS: BP 117/60; PULSE 72; RESP 17; TEMP 98.6; O2SAT 99
[2017-01-06 20:52] VITALS: BP 102/51; PULSE 70; RESP 18; TEMP 98.4; O2SAT 99
[2017-01-06] MEDS: MELATONIN 5 MG TAB PO SCH (21:28)
[2017-01-07] VITALS (7 sets, daily range): BP systolic 102–131; BP diastolic 57–73; PULSE 63–73; RESP 17–20; TEMP 97.5–98.7; O2SAT 97–100
[2017-01-07] MEDS: cloNIDine HCL 0.1 MG TAB PO SCH ×3 (02:00→17:09)
[2017-01-07] MEDS: CHLORHEXIDINE GLUCONATE 2 % 1 PACK (2 CLOTHS) TOP SCH (03:18)
[2017-01-07] MEDS: DILTIAZEM HCL 90 MG TAB PO SCH ×4 (05:33→17:09)
[2017-01-07] MEDS: DOCUSATE SODIUM 100 MG CAP PO SCH ×2 (07:43→21:23)
[2017-01-07] MEDS: ASCORBIC ACID 500 MG TAB PO SCH ×2 (07:43→21:23)
[2017-01-07] MEDS: PANTOPRAZOLE SOD 40 MG DELAYED RELEASE TAB PO SCH (07:43)
[2017-01-07] MEDS: NS + KCL 20 MEQ INJ 1,000 ML IV SCH ×2 (07:43→17:10)
[2017-01-07] MEDS: ARTIFICIAL TEARS OPTH SOLN 15 ML BTL EACH EYE SCH ×3 (07:44→17:11)
[2017-01-07] MEDS: FAMOTIDINE 20 MG TAB PO SCH ×2 (07:44→21:23)
[2017-01-07] MEDS: CHLORHEXIDINE 0.12% (ORAL KIT) 15 ML CUP MT SCH ×2 (07:44→20:00)
[2017-01-07] MEDS: BENEPROTEIN POWDER 1 PACK G-TUBE SCH ×3 (07:44→17:09)
[2017-01-07] MEDS: PANTOPRAZOLE SODIUM 40 MG VIAL IVP SCH (07:44)
[2017-01-07] MEDS: LACTOBACILLUS ACIDOPHILUS TAB PO SCH ×3 (07:44→17:09)
[2017-01-07] MEDS: levETIRAcetam 500 MG/5 ML UDC PEG SCH ×2 (07:44→21:23)
[2017-01-07] MEDS: SODIUM CHLORIDE 0.9% FLUSH 5 ML FLUSH IVF SCH ×2 (07:45→21:00)
[2017-01-07] MEDS: SODIUM CHLORIDE 0.9% FLUSH 10 ML FLUSH IV FLUSH SCH (07:45)
[2017-01-07] MEDS: BACITRACIN TOP OINT 15 GM TUBE TOPICAL SCH ×2 (07:52→21:27)
[2017-01-07] MEDS: BACITRACIN OINT 0.9 GM PKT TOPICAL SCH (07:52)
[2017-01-07] MEDS: COLLAGENASE OINT 30 GM TUBE TOPICAL SCH (07:52)
--- NOTE | 2017-01-07 08:41 | HHI.PR ---
Subjective Remarks Stable in his bedroom, discussed with nurse and with Hospitalist LEO he is awaiting for Discharge placement, continue working on this discharge by [employer]. Objective Vital Signs Date Time Temp Pulse Resp B/P (MAP) Pulse Ox O2 Delivery O2 Flow Rate FiO2 01/07/17 05:12 97.5 63 17 131/73 (92) 99 01/07/17 02:41 97.7 68 18 102/57 (72) 97 01/07/17 00:20 98.3 68 18 104/62 (76) 98 01/06/17 20:52 98.4 70 18 102/51 (68) 99 01/06/17 16:44 98.6 72 17 117/60 (79) 99 01/06/17 13:16 97.3 80 18 123/62 (82) 99 01/06/17 10:46 97.5 73 18 124/75 (91) 99 I/O 01/06/17 01/06/17 01/06/17 01/07/17 01/07/17 01/07/17 07:00 15:00 23:00 07:00 15:00 23:00 Intake Total 2200 ml Output Total 1800 ml 2250 ml 2900 ml Balance -1800 ml -50 ml -2900 ml Intake Oral 600 ml IV Total 1600 ml Output Urine Total 1800 ml 2250 ml 2900 ml # Bowel Movements 2 1 Imaging Last Impressions Lower Extremity Ultrasound 12/29/16 0000 Signed Impressions: Service Date/Time: December 13:07 - CONCLUSION: No sonographic or Doppler findings of deep venous thrombosis. Joni Shelton MD Carotid Artery Ultrasound 12/27/16 0000 Signed Impressions: Service Date/Time: Tuesday, December 27, 2016 17:19 - CONCLUSION: Mild plaque at the carotid bulb regions bilaterally without a significant stenosis seen. Yosvany Alfaro MD Aorta w/Runoff CTA 12/27/16 0000 Signed Impressions: Service Date/Time: Wednesday, December 28, 2016 17:28 - CONCLUSION: Atherosclerotic calcification seen throughout the arterial system without an area of significant stenosis. The trifurcation vessels are only faintly opacified. Yosvany Alfaro MD Modified Barium Swallow 12/23/16 0000 Signed Impressions: Service Date/Time: Friday, December 23, 2016 09:11 - CONCLUSION: Negative for aspiration.. Remington Woodward MD FACR Chest X-Ray 12/04/16 6293 Signed Impressions: Service Date/Time: Sunday, December 04, 2016 18:55 - CONCLUSION: 1. Placement of left central line tip in superior vena cava. No pneumothorax. Mild basilar airspace disease. Small right effusion. Gurwinder Root MD Upper Extremity Ultrasound 12/04/16 0000 Signed Impressions: Service Date/Time: Sunday, December 04, 2016 15:37 - CONCLUSION: 1. Positive for occlusive deep venous thrombosis in the right axillary and subclavian vein. Occlusive superficial thrombus in bilateral cephalic veins. Gurwinder Root MD Angiography 12/01/16 0000 Signed Impressions: Service Date/Time: November 14:02 - CONCLUSION: 1. Right side up on her hemorrhage with angiography of the right bronchial artery revealing no source of active hemorrhage. Empiric embolization was performed. Santos Crockett Jr., MD Chest CT 11/28/16 0000 Signed Impressions: Service Date/Time: Tuesday, November 29, 2016 05:13 - CONCLUSION: 1. Patchy alveolar disease characteristic of edema or pneumonia. 2. Severe emphysema 3. Gastrojejunostomy tube looped in the stomach Harvey Morejon MD Chest/Thorax CTA 11/26/16 0000 Signed Impressions: Service Date/Time: Saturday, November 26, 2016 20:18 - CONCLUSION: 1. Extensive filling defects within the right central bronchial tree characteristic of endobronchial hemorrhage. 2. Consolidating airspace disease in the right upper lobe and right lower lobe characteristic of hemorrhage and post obstructive lung consolidation. 3. Right bronchial artery is identified extending to the central right bronchial region 4. Advanced COPD. Nasir Amanda MD Abdomen X-Ray 11/19/16 06 Signed Impressions: Service Date/Time: Saturday, November 19, 2016 02:44 - CONCLUSION: Unchanged bowel gas pattern potentially relating to an ileus. Santos Crockett Jr., MD Transcranial Doppler Study Complete 10/20/16599 Signed Impressions: Service Date/Time: October 07:54 - CONCLUSION: Slight interval elevation of flow velocity measurements and ratio on the left Yosvany Polk MD Liver Ultrasound 10/19/16 0000 Signed Impressions: Service Date/Time: Wednesday, October 19, 2016 11:20 - CONCLUSION: 1. Sludge filled gallbladder with thickened wall. 2. Moderate size bilateral pleural effusions and mild upper abdominal ascites. Santos Vazquez MD Cerebral Arteriogram 10/19/16 0000 Signed Impressions: Service Date/Time: Wednesday, October 19, 2016 12:47 - CONCLUSION: Uncomplicated cerebral arteriography with spasmolytic therapy as described in detail above. Yosvany Polk MD Head CT 10/17/16 0000 Signed Impressions: Service Date/Time: Monday, October 17, 2016 15:06 - CONCLUSION: Ventricles are slightly larger without ventriculostomy. Edema in the left hemisphere the brain herniating through the operative site. Remington Woodward MD FACR Infusion Non-thrombolysis 10/14/16 1103 Signed Impressions: Service Date/Time: Friday, October 14, 2016 10:21 - CONCLUSION: 1. Uncomplicated infusion for spasmolysis Harvey Morejon MD Neck CTA 10/07/16 0000 Signed Impressions: Service Date/Time: Friday, October 07, 2016 15:03 - CONCLUSION: 1. Mild carotid bulb atherosclerotic calcification bilaterally. However, no significant stenosis is present in either internal carotid artery. 2. Paranasal sinus mucoperiosteal thickening. 3. Please refer to brain CTA report for description of the intracranial findings. Yosvany Ramirez MD Head CTA 10/07/16 0000 Signed Impressions: Service Date/Time: Friday, October 07, 2016 15:03 - CONCLUSION: 1. 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 2. Large left subdural hematoma measuring 1.3 cm in depth with a significant, 1.6 cm left to right subfalcine shift. Joni Shelton MD Procedures 10/13 Four-vessel cerebral angiography with verapamil treatment of vasospasm Status post left frontotemporal parietal craniectomy 10/08 for evacuation subdural hematoma/duraplasty. 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 parietal cranioplasty with replacement of skull flap by Dr Perry neurosurgery on 12/27/16 Other Results Laboratory Tests Test 10/11/16 23:50 10/14/16 10:00 10/15/16 02:10 10/15/16 03:40 Nasal Screen MRSA (PCR) MRSA NOT DETECTED Urine Osmolality 409 MOSM/KG Serum Osmolality 279 MOSM/KG Procalcitonin 6.86 ng/mL Random Cortisol 35.0 MCG/DL Test 10/16/16 01:07 10/18/16 05:45 10/19/16 00:00 10/19/16 12:00 Troponin I 2.47 NG/ML Protein Corrected Calcium 7.9 MG/DL Total Creatine Kinase 1073 U/L Creatine Kinase MB 14.1 NG/ML Creatine Kinase MB % 1.3 % Thyroid Stimulating Hormone 3rd Gen 0.256 uIU/ML Urine Amorphous Sediment RARE Urine Random Sodium 49 MEQ/L Test 10/20/16 10:40 10/20/16 13:00 10/21/16 04:20 10/21/16 14:30 Phenytoin (Dilantin) Level 6.0 MCG/ML Blood Urea Nitrogen 19 MG/DL Creatinine 0.53 MG/DL Random Glucose 214 MG/DL Total Protein 5.9 GM/DL Albumin 1.5 GM/DL Calcium Level 7.6 MG/DL Phosphorus Level 0.9 MG/DL Magnesium Level 2.2 MG/DL Alkaline Phosphatase 137 U/L Aspartate Amino Transf (AST/SGOT) 112 U/L Alanine Aminotransferase (ALT/SGPT) 195 U/L Total Bilirubin 0.4 MG/DL Direct Bilirubin 0.2 MG/DL Sodium Level 146 MEQ/L Potassium Level 2.7 MEQ/L Chloride Level 111 MEQ/L Carbon Dioxide Level 28.3 MEQ/L Indirect Bilirubin 0.2 MG/DL Lactic Acid Level 1.4 mmol/L Amylase Level 29 U/L Lipase 76 U/L Free Thyroxine 0.70 NG/DL Free Triiodothyronine (T3) pg/dL 0.90 PG/ML Test 10/31/16 05:08 11/02/16 18:00 11/04/16 01:40 11/04/16 05:00 B-Type Natriuretic Peptide 765 PG/ML Stool C. difficile Toxin (PCR) NEGATIVE Stl C. difficile Toxin Epiderm 027 PRESUMPTIVE NEGATIVE Vancomycin Level Trough 25.2 MCG/ML Ammonia 37 MCMOL/L Test 11/05/16 15:00 11/14/16 11:40 11/20/16 05:17 11/22/16 05:24 Random Vancomycin Level 7.1 COMMENT Urine Color YELLOW Urine Turbidity CLEAR Urine pH 5.5 Urine Specific [place] 1.027 Urine Protein 30 mg/dL Urine Glucose (UA) NEG mg/dL Urine Ketones NEG mg/dL Urine Occult Blood SMALL Urine Nitrite NEG Urine Bilirubin NEG Urine Urobilinogen LESS THAN 2.0 MG/DL Urine Leukocyte Esterase NEG Urine RBC 8 /hpf Urine WBC 4 /hpf Urine Squamous Epithelial Cells 3 /hpf Urine Calcium Oxalate Crystals RARE /hpf Urine Bacteria RARE /hpf Urine Hyaline Casts 1 /lpf Urine Mucus FEW /lpf Microscopic Urinalysis Comment CULT NOT INDICATED Hematology Comments Platelet Estimate HIGH Platelet Morphology Comment NORMAL Red Cell Morphology Comment NORMAL Test 11/25/16 08:17 11/26/16 16:50 11/28/16 23:05 12/01/16 13:48 Differential Total Cells Counted 100 Neutrophils % (Manual) 75 % Band Neutrophils % 10 % Lymphocytes % 8 % Monocytes % 6 % Basophils % 1 % Neutrophils # (Manual) 9.9 TH/MM3 Toxic Granulation 1+ Fibrinogen 382 mg/dL Blood Gas Puncture Site RT RADIAL Blood Gas Patient Temperature 98.6 Blood Gas HCO3 29 mmol/L Blood Gas Base Excess 4.2 mmol/L Blood Gas Oxygen Saturation 84 % Arterial Blood pH 7.36 Arterial Blood Partial Pressure CO2 53 mmHg Arterial Blood Partial Pressure O2 56 mmHg Arterial Blood Oxygen Content 9.5 Vol % Arterial Blood Carboxyhemoglobin 2.0 % Arterial Blood Methemoglobin 0.9 % Blood Gas Hemoglobin 8.0 G/DL Oxygen Delivery Device VENT Blood Gas Ventilator Setting SEE COMMENTS Blood Gas Inspired Oxygen 60 % Prothrombin Time 11.1 SEC Prothromb Time International Ratio 1.0 RATIO Activated Partial Thromboplast Time 28.3 SEC Test 12/02/16 04:32 12/14/16 15:00 12/15/16 04:45 12/22/16 05:25 Blood Urea Nitrogen 13 MG/DL 24 MG/DL 22 MG/DL Creatinine 0.28 MG/DL 0.43 MG/DL 0.45 MG/DL Random Glucose 116 MG/DL 98 MG/DL 100 MG/DL Total Protein 5.0 GM/DL Albumin 1.4 GM/DL Calcium Level 7.7 MG/DL 8.3 MG/DL 8.4 MG/DL Phosphorus Level 3.1 MG/DL 3.8 MG/DL Magnesium Level 1.9 MG/DL 2.0 MG/DL 2.1 MG/DL Alkaline Phosphatase 70 U/L Aspartate Amino Transf (AST/SGOT) LESS THAN 3 U/L Alanine Aminotransferase (ALT/SGPT) 12 U/L Total Bilirubin 0.4 MG/DL Sodium Level 135 MEQ/L 135 MEQ/L 135 MEQ/L Potassium Level 3.7 MEQ/L 4.2 MEQ/L 4.2 MEQ/L Chloride Level 101 MEQ/L 99 MEQ/L 100 MEQ/L Carbon Dioxide Level 26.1 MEQ/L 29.7 MEQ/L 29.8 MEQ/L Prealbumin 19 MG/DL Iron Level 51 MCG/DL Total Iron Binding Capacity 223 MCG/DL Percent Iron Saturation 22.9 % Test 12/28/16 04:46 White Blood Count 7.8 TH/MM3 Red Blood Count 2.89 MIL/MM3 Hemoglobin 9.0 GM/DL Hematocrit 27.0 % Mean Corpuscular Volume 93.4 FL Mean Corpuscular Hemoglobin 31.1 PG Mean Corpuscular Hemoglobin Concent 33.3 % Red Cell Distribution Width 17.0 % Platelet Count 228 TH/MM3 Mean Platelet Volume 9.1 FL Neutrophils (%) (Auto) 63.7 % Lymphocytes (%) (Auto) 21.5 % Monocytes (%) (Auto) 9.1 % Eosinophils (%) (Auto) 4.3 % Basophils (%) (Auto) 1.4 % Neutrophils # (Auto) 5.0 TH/MM3 Lymphocytes # (Auto) 1.7 TH/MM3 Monocytes # (Auto) 0.7 TH/MM3 Eosinophils # (Auto) 0.3 TH/MM3 Basophils # (Auto) 0.1 TH/MM3 CBC Comment DIFF FINAL Differential Comment Blood Urea Nitrogen 18 MG/DL Creatinine 0.48 MG/DL Random Glucose 122 MG/DL Calcium Level 8.2 MG/DL Sodium Level 140 MEQ/L Potassium Level 4.4 MEQ/L Chloride Level 106 MEQ/L Carbon Dioxide Level 27.6 MEQ/L Anion Gap 6 MEQ/L Estimat Glomerular Filtration Rate 182 ML/MIN Objective Remarks GENERAL: Awake and alert, oriented, appears in nad. SKIN: All toes with digital ischemia, left 2nd finger and right ringer finger with distal digit ischemia. Stage 1-2 decubitus ulcer NECK: Bandage noted at neck in covering trach site c/d/i. CARDIOVASCULAR: Regular rate and rhythm. RESPIRATORY: No accessory muscle use. Clear to auscultation. Breath sounds equal bilaterally. GASTROINTESTINAL: Abdomen soft, non-tender, nondistended. Soft PEG in place, site c/d/i MUSCULOSKELETAL: Extremities without clubbing, cyanosis. Lower extremity edema improved. No obvious deformities. Bilateral radial and DP,PT ++ NEUROLOGICAL: Alert and oriented x3, pleasant. Speech IS soft with short sentences. Medications and IVs Current Medications Medications (Trade) Dose Ordered Sig/Adali Route Start Time Stop Time Status Last Admin (Heparin Inj) 5,000 units Q8HR SQ 10/14/16 22:00 Future Hold 11/13/16 21:20 (Tears Naturale Opth Soln) 1 drop TID EACH EYE 10/19/16 13:00 01/06/17 17:33 (Albuterol Neb) 2.5 mg Q2HR NEB PRN INH 10/19/16 09:45 11/22/16 22:09 Miscellaneous Information 1 Q361D XX 10/19/16 09:45 (Chlorhexidine 2% Cloth) 3 pack Taper DAILY@04 TOP 10/20/16 04:00 10/16/17 03:59 12/24/16 04:00 (Chlorhexidine 2% Cloth) 3 pack UNSCH PRN TOP 10/19/16 09:45 (Melatonin) 5 mg HS PO 11/01/16 21:00 01/06/17 21:28 (Cardizem) 90 mg Q6HR PO 11/02/16 12:00 01/07/17 05:33 (Baciguent Oint) 1 applic Q12HR TOPICAL 11/18/16 11:00 01/07/17 07:52 (Beneprotein Powder) 1 pack TID G-TUBE 11/19/16 09:00 01/07/17 07:44 (Peridex 0.12% Liq) 15 ml BID@08,20 MT 11/26/16 20:00 01/07/17 07:44 (Santyl Oint) 1 applic DAILY TOPICAL 11/30/16 12:00 01/07/17 07:52 (Racepinephrine 2.25% Neb) 0.5 ml Q4HR NEB PRN NEB 12/03/16 15:00 (Nitroglycerin 2% Oint) 2 inch Q6H PRN TOPICAL 12/04/16 09:15 (Catapres) 0.1 mg Q8H PO 12/04/16 10:00 01/06/17 17:31 (Vasotec Inj) 1.25 mg Q6H PRN IV PUSH 12/04/16 09:15 (NS Flush) DAILY IV FLUSH 12/04/16 18:00 01/02/17 09:00 (NS Flush) UNSCH PRN IV FLUSH 12/04/16 18:00 (Imodium Liq) 2 mg UNSCH PRN PO 12/14/16 10:45 (Lactinex) 1 tab TID PO 12/14/16 18:00 01/07/17 07:44 (Pepcid) 20 mg BID PO 12/16/16 21:00 01/07/17 07:44 (Ferrous Sulfate) 325 mg BID@ PO 12/22/16 12:00 01/06/17 17:31 (Vitamin C) 500 mg BID PO 12/22/16 09:00 01/07/17 07:43 Potassium Chloride/Sodium Chloride 1,000 ml @ 100 mls/hr Q10H IV 12/27/16 11:17 01/07/17 07:43 (NS Flush) 2 ml UNSCH PRN IVF 12/27/16 11:30 (NS Flush) 2 ml BID IVF 12/27/16 21:00 01/06/17 21:30 (Dulcolax Supp) 10 mg DAILY PRN RECTAL 12/27/16 11:30 (Colace) 100 mg BID PO 12/27/16 21:00 01/07/17 07:43 (Protonix) 40 mg DAILY PO 12/28/16 09:00 01/07/17 07:43 (Protonix Inj) 40 mg DAILY IVP 12/28/16 09:00 01/07/17 07:44 (Zofran Inj) 4 mg Q6H PRN IV PUSH 12/27/16 11:30 Potassium Chloride 100 ml @ 50 mls/hr UNSCH PRN IV 12/27/16 11:30 Magnesium Sulfate 4 gm/Sodium Chloride 108 ml @ 108 mls/hr UNSCH PRN IV 12/27/16 11:30 (Edgecomb 10-325 Mg) 1 tab Q4H PRN PO 12/27/16 11:30 12/30/16 05:54 (Edgecomb 10-325 Mg) 2 tab Q4H PRN PO 12/27/16 11:30 12/30/16 14:24 (Morphine Inj) 2 mg Q2H PRN IV PUSH 12/27/16 11:30 12/29/16 15:05 (Morphine Inj) 4 mg Q2H PRN IV PUSH 12/27/16 11:30 12/28/16 18:00 (Tylenol) 650 mg Q4H PRN PO 12/27/16 11:30 Calcium Gluconate 1 gm/Sodium Chloride 110 ml @ 110 mls/hr UNSCH PRN IV 12/27/16 12:00 (Keppra Liq) 500 mg Q12HR PEG 12/27/16 21:00 01/07/17 07:44 (Bacitracin Oint Packet) 0.9 gm DAILY TOPICAL 12/30/16 18:31 01/07/17 07:52 A/P Assessment and Plan 56-year-old male presents with intracranial bleed, was transferred from [facility]. 1. Subdural Hematoma/duraplasty status post left frontotemporal parietal craniotomy 10/08. 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 Initiated . - Continue Levetiracetam 500 mg per tube q12h. - 10/13 and 10/14 and 10/17) 10/19 left MCA territory vasospasm, status post successful verapamil treatment by IR with 20 mg verapamil - 10/17 CT brain - less hemisphere edema with herniation through left craniotomy site, improved. - Dr. Perry/neurosurgery. S/p left cranioplasty/bone flap 12/27/16. - Echocardiogram 10/14/16 revealed EF 40-45%. Septal hypokinesis. Moderate MR. Severe pulmonary hypertension with pulmonary artery pressures estimated 61 mmHg Limited Echo 11/06: LVEF 60-65%, Trivial mitral and tricuspid regurgitation, No vegetations noted. - On diltiazem's 90 mg by mouth every 6 hours and furosemide 20 mg daily. Monitor BP and if low hold meds. - neurologically stable and doing well, and continued PT and rehabilitation. - PT, OT, speech following. Patient had helmet. -Eating better. Will have dietitian for calorie count and will evaluate if we can remove feeding tube as patient it seems has adequate PO intake. Respiratory failure, S/P tracheostomy. Resolved now satting well on Room air. Monitor O2 sat, O2 supplement to keep O2 sat > 94 - S/p Trach Dr. Sullivan/Dr. Collazo 11/01 #8 [place] - CT angiogram chest/neck revealed right centrilobular bleeding likely source right bronchial artery. Repeat CT chest 11/29no visualization of active bleeding.- Resolved - 12/01 - embolization of right bronchial artery by IR- no further bleeding from tracheostomy - Redo trach 11/[address] Sullivan; down sized to uncuffed fenestrated 6 tracheostomy on 12/14 and now capped. - Albuterol/ipratropium aerosols every 6 hours with albuterol aerosols - Dr. Wilson plan is to downsize tube and probably considering tracheostomy removal - Tolerated tracheostomy capping. Has been decannulated. Tolerating room air. Now satting well on Room air, trach removed, trach site wound cultures pending, added bacitracin and wound care consulted for trach site wound. - Monitor Respiratory status Lower extremity edema improved. Ultrasound Doppler reviewed and no DVT. Patient with high risk of bleeding and is not chemoprophylaxis at this time. Continue SCDs and teds for DVT prophylaxis. Ileus- Resolved Elevated transaminases Hyperammonemia Severe protein caloric malnutrition- continue with tube feeds as tolerated. - Currently on Glucerna 1.5 goal 60 cc an hour. Consult receptionist nurse to review formula. - free water per G tube 200mL per tube q6h. - Lansoprazole 30 mg by tube daily for GI prophylaxis will change this to Pepcid - Continue bowel regimen - Reglan DC 12/13- stools amount decreased and thicker in consistency- continue to monitor - Continue PEG feeding. s/p PEG 11/12/16 - speech following for swallowing progress - Tube feeds only at night, patient has regular trach during the daytime, will order ensure pudding - Dietitian consulted to reevaluate tube feeding rate. Right occlusive subclavian, axillary and bilateral superficial cephalic thrombus - limited Echo to evaluate vegetation-neg. ID following - Digital Ischemia with necrosis involving all toes and left 2nd finger and right ringer finger- stable, conservative management - Digits have demarcated, allow auto amputation. Cardizem PO currently and 90 mg every 6 hours (for digital ischemia, Raynaud's) - Continue bacitracin twice a day to affected areas - Central line for IV access. We'll need to be started on systemic anticoagulation at some point however with recent embolization for hemoptysis holding full anticoagulation at this time. - Consult vascular surgeon . Seen by Dr Valente plan for CTA Ao runoff Stage 2 sacral ulcer - ABD dressing with [employer]- staff nurse makes sure to keep area dry. Wound care also consulted. appreciate recommendations. - Turn position every 2 hours - Out of bed to chair activity Course of hospitalization complications Acute hypoxic Respiratory failure secondary to mucous plugging- Resolved Possible healthcare associated pneumonia, Septic Shock- resolved. ARDS - resolved Noncardiogenic/neurogenic pulmonary edema- resolved. Massive Hemoptysis - resolved Aspiration pneumonitis - resolved Cerebral Salt Wasting/SIADH-resolved now hypernatremic - Creatinine currently within normal limits -> resolved. - Monitor urine output Septic and cardiogenic shock- resolved. LV dysfunction secondary to SAH - persistent, now resolved Elevated troponin- secondary to SAH, unlikely to be ACS. - resolved. Pulmonary hypertension s/p PEA arrest 11/28 after ETT dislodgement, hypoxic arrest DVT prop SCD, no chemoprophylaxis secondary to risk for bleeding. Patient with lower extremity edema at this time will do ultrasound Doppler to rule out DVT this patient with high risk of bleeding and is not chemoprophylaxis at this time. Full Code Discharge Planning S/p left cranioplasty by Dr Perry neurosurgery on 12/27/16. He is fairly stable for DC when arrangements done. Pending SSI. Placement will be in detention facility or long-term care. CM following for DC plan. Eating better. Will have dietitian for calorie count and will evaluate if we can remove feeding tube as patient it seems has adequate PO intake. Brayden Candelario MD Jan 07, 2017 08:41
[2017-01-07] MEDS: FERROUS SULFATE 325 MG (65 MG ELEMENTAL IRON) TAB PO SCH ×2 (14:09→17:09)
[2017-01-07] MEDS: MELATONIN 5 MG TAB PO SCH (21:23)
[2017-01-08] VITALS (8 sets, daily range): BP systolic 101–154; BP diastolic 57–76; PULSE 63–85; RESP 16–18; TEMP 97.4–98.5; O2SAT 97–99
[2017-01-08] MEDS: DILTIAZEM HCL 90 MG TAB PO SCH ×4 (00:20→17:30)
[2017-01-08] MEDS: NS + KCL 20 MEQ INJ 1,000 ML IV SCH ×3 (02:43→22:29)
[2017-01-08] MEDS: cloNIDine HCL 0.1 MG TAB PO SCH ×3 (02:46→17:30)
[2017-01-08] MEDS: CHLORHEXIDINE GLUCONATE 2 % 1 PACK (2 CLOTHS) TOP SCH (04:00)
[2017-01-08] MEDS: levETIRAcetam 500 MG/5 ML UDC PEG SCH ×2 (07:38→22:28)
[2017-01-08] MEDS: ASCORBIC ACID 500 MG TAB PO SCH ×2 (07:39→22:28)
[2017-01-08] MEDS: FAMOTIDINE 20 MG TAB PO SCH ×2 (07:39→22:28)
[2017-01-08] MEDS: LACTOBACILLUS ACIDOPHILUS TAB PO SCH ×3 (07:39→17:30)
[2017-01-08] MEDS: PANTOPRAZOLE SOD 40 MG DELAYED RELEASE TAB PO SCH (07:39)
[2017-01-08] MEDS: PANTOPRAZOLE SODIUM 40 MG VIAL IVP SCH (07:39)
[2017-01-08] MEDS: DOCUSATE SODIUM 100 MG CAP PO SCH ×2 (07:39→22:28)
[2017-01-08] MEDS: ARTIFICIAL TEARS OPTH SOLN 15 ML BTL EACH EYE SCH ×3 (07:40→17:30)
[2017-01-08] MEDS: SODIUM CHLORIDE 0.9% FLUSH 5 ML FLUSH IVF SCH ×2 (07:40→21:00)
[2017-01-08] MEDS: BENEPROTEIN POWDER 1 PACK G-TUBE SCH ×3 (07:40→17:30)
[2017-01-08] MEDS: CHLORHEXIDINE 0.12% (ORAL KIT) 15 ML CUP MT SCH ×2 (07:40→20:00)
[2017-01-08] MEDS: SODIUM CHLORIDE 0.9% FLUSH 10 ML FLUSH IV FLUSH SCH (07:40)
[2017-01-08] MEDS: BACITRACIN TOP OINT 15 GM TUBE TOPICAL SCH ×2 (07:41→21:00)
[2017-01-08] MEDS: BACITRACIN OINT 0.9 GM PKT TOPICAL SCH (07:41)
[2017-01-08] MEDS: COLLAGENASE OINT 30 GM TUBE TOPICAL SCH (07:41)
--- NOTE | 2017-01-08 09:14 | HHI.PR ---
Subjective Remarks Seen in his bedroom, no new issues, no nausea, vomit or diarrhea. Objective Vital Signs Date Time Temp Pulse Resp B/P (MAP) Pulse Ox O2 Delivery O2 Flow Rate FiO2 01/08/17 08:26 98.0 67 16 105/69 (81) 99 01/08/17 07:26 85 01/08/17 05:18 97.9 80 18 154/76 (102) 97 01/08/17 02:22 101/60 (74) 01/08/17 01:31 98.5 63 18 115/57 (76) 99 01/07/17 21:17 98.7 72 18 117/58 (77) 99 01/07/17 16:20 98.7 73 20 107/63 (78) 99 01/07/17 12:00 97.6 67 20 113/66 (82) 100 I/O 01/07/17 01/07/17 01/07/17 01/08/17 01/08/17 01/08/17 07:00 15:00 23:00 07:00 15:00 23:00 Intake Total 741 ml 959 ml 2183 ml Output Total 4831 ml 1352 ml 1000 ml 1800 ml Balance -4090 ml -393 ml 1183 ml -1800 ml Intake Oral 480 ml IV Total 261 ml 959 ml 1892 ml Tube Feeding 291 ml Output Urine Total 4830 ml 1352 ml 1000 ml 1800 ml Stool Total 1 ml Imaging Last Impressions Lower Extremity Ultrasound 12/29/16 0000 Signed Impressions: Service Date/Time: December 13:07 - CONCLUSION: No sonographic or Doppler findings of deep venous thrombosis. Joni Shelton MD Carotid Artery Ultrasound 12/27/16 0000 Signed Impressions: Service Date/Time: Tuesday, December 27, 2016 17:19 - CONCLUSION: Mild plaque at the carotid bulb regions bilaterally without a significant stenosis seen. Yosvany Alfaro MD Aorta w/Runoff CTA 12/27/16 0000 Signed Impressions: Service Date/Time: Wednesday, December 28, 2016 17:28 - CONCLUSION: Atherosclerotic calcification seen throughout the arterial system without an area of significant stenosis. The trifurcation vessels are only faintly opacified. Yosvany Alfaro MD Modified Barium Swallow 12/23/16 0000 Signed Impressions: Service Date/Time: Friday, December 23, 2016 09:11 - CONCLUSION: Negative for aspiration.. Remington Woodward MD FACR Chest X-Ray 12/04/16 7813 Signed Impressions: Service Date/Time: Sunday, December 04, 2016 18:55 - CONCLUSION: 1. Placement of left central line tip in superior vena cava. No pneumothorax. Mild basilar airspace disease. Small right effusion. Gurwinder Root MD Upper Extremity Ultrasound 12/04/16 0000 Signed Impressions: Service Date/Time: Sunday, December 04, 2016 15:37 - CONCLUSION: 1. Positive for occlusive deep venous thrombosis in the right axillary and subclavian vein. Occlusive superficial thrombus in bilateral cephalic veins. Gurwinder Root MD Angiography 12/01/16 0000 Signed Impressions: Service Date/Time: November 14:02 - CONCLUSION: 1. Right side up on her hemorrhage with angiography of the right bronchial artery revealing no source of active hemorrhage. Empiric embolization was performed. Santos Crockett Jr., MD Chest CT 11/28/16 0000 Signed Impressions: Service Date/Time: Tuesday, November 29, 2016 05:13 - CONCLUSION: 1. Patchy alveolar disease characteristic of edema or pneumonia. 2. Severe emphysema 3. Gastrojejunostomy tube looped in the stomach Harvey Morejon MD Chest/Thorax CTA 11/26/16 0000 Signed Impressions: Service Date/Time: Saturday, November 26, 2016 20:18 - CONCLUSION: 1. Extensive filling defects within the right central bronchial tree characteristic of endobronchial hemorrhage. 2. Consolidating airspace disease in the right upper lobe and right lower lobe characteristic of hemorrhage and post obstructive lung consolidation. 3. Right bronchial artery is identified extending to the central right bronchial region 4. Advanced COPD. Nasir Amanda MD Abdomen X-Ray 11/19/16 0600 Signed Impressions: Service Date/Time: Saturday, November 19, 2016 02:44 - CONCLUSION: Unchanged bowel gas pattern potentially relating to an ileus. Santos Crockett Jr., MD Transcranial Doppler Study Complete 10/20/16 0600 Signed Impressions: Service Date/Time: October 07:54 - CONCLUSION: Slight interval elevation of flow velocity measurements and ratio on the left Yosvany Polk MD Liver Ultrasound 10/19/16 0000 Signed Impressions: Service Date/Time: Wednesday, October 19, 2016 11:20 - CONCLUSION: 1. Sludge filled gallbladder with thickened wall. 2. Moderate size bilateral pleural effusions and mild upper abdominal ascites. Santos Vazquez MD Cerebral Arteriogram 10/19/16 0000 Signed Impressions: Service Date/Time: Wednesday, October 19, 2016 12:47 - CONCLUSION: Uncomplicated cerebral arteriography with spasmolytic therapy as described in detail above. Yosvany Polk MD Head CT 10/17/16 0000 Signed Impressions: Service Date/Time: Monday, October 17, 2016 15:06 - CONCLUSION: Ventricles are slightly larger without ventriculostomy. Edema in the left hemisphere the brain herniating through the operative site. Remington Woodward MD FACR Infusion Non-thrombolysis 10/14/16 1103 Signed Impressions: Service Date/Time: Friday, October 14, 2016 10:21 - CONCLUSION: 1. Uncomplicated infusion for spasmolysis Harvey Morejon MD Neck CTA 10/07/16 0000 Signed Impressions: Service Date/Time: Friday, October 07, 2016 15:03 - CONCLUSION: 1. Mild carotid bulb atherosclerotic calcification bilaterally. However, no significant stenosis is present in either internal carotid artery. 2. Paranasal sinus mucoperiosteal thickening. 3. Please refer to brain CTA report for description of the intracranial findings. Yosvany Ramirez MD Head CTA 10/07/16 0000 Signed Impressions: Service Date/Time: Friday, October 07, 2016 15:03 - CONCLUSION: 1. 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 2. Large left subdural hematoma measuring 1.3 cm in depth with a significant, 1.6 cm left to right subfalcine shift. Joni Shelton MD Procedures 10/13 Four-vessel cerebral angiography with verapamil treatment of vasospasm Status post left frontotemporal parietal craniectomy 10/08 for evacuation subdural hematoma/duraplasty. 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 parietal cranioplasty with replacement of skull flap by Dr Perry neurosurgery on 12/27/16 Other Results Laboratory Tests Test 10/11/16 23:50 10/14/16 10:00 10/15/16 02:10 10/15/16 03:40 Nasal Screen MRSA (PCR) MRSA NOT DETECTED Urine Osmolality 409 MOSM/KG Serum Osmolality 279 MOSM/KG Procalcitonin 6.86 ng/mL Random Cortisol 35.0 MCG/DL Test 10/16/16 01:07 10/18/16 05:45 10/19/16 00:00 10/19/16 12:00 Troponin I 2.47 NG/ML Protein Corrected Calcium 7.9 MG/DL Total Creatine Kinase 1073 U/L Creatine Kinase MB 14.1 NG/ML Creatine Kinase MB % 1.3 % Thyroid Stimulating Hormone 3rd Gen 0.256 uIU/ML Urine Amorphous Sediment RARE Urine Random Sodium 49 MEQ/L Test 10/20/16 10:40 10/20/16 13:00 10/21/16 04:20 10/21/16 14:30 Phenytoin (Dilantin) Level 6.0 MCG/ML Blood Urea Nitrogen 19 MG/DL Creatinine 0.53 MG/DL Random Glucose 214 MG/DL Total Protein 5.9 GM/DL Albumin 1.5 GM/DL Calcium Level 7.6 MG/DL Phosphorus Level 0.9 MG/DL Magnesium Level 2.2 MG/DL Alkaline Phosphatase 137 U/L Aspartate Amino Transf (AST/SGOT) 112 U/L Alanine Aminotransferase (ALT/SGPT) 195 U/L Total Bilirubin 0.4 MG/DL Direct Bilirubin 0.2 MG/DL Sodium Level 146 MEQ/L Potassium Level 2.7 MEQ/L Chloride Level 111 MEQ/L Carbon Dioxide Level 28.3 MEQ/L Indirect Bilirubin 0.2 MG/DL Lactic Acid Level 1.4 mmol/L Amylase Level 29 U/L Lipase 76 U/L Free Thyroxine 0.70 NG/DL Free Triiodothyronine (T3) pg/dL 0.90 PG/ML Test 10/31/16 05:08 11/02/16 18:00 11/04/16 01:40 11/04/16 05:00 B-Type Natriuretic Peptide 765 PG/ML Stool C. difficile Toxin (PCR) NEGATIVE Stl C. difficile Toxin Epiderm 027 PRESUMPTIVE NEGATIVE Vancomycin Level Trough 25.2 MCG/ML Ammonia 37 MCMOL/L Test 11/05/16 15:00 11/14/16 11:40 11/20/16 05:17 11/22/16 05:24 Random Vancomycin Level 7.1 COMMENT Urine Color YELLOW Urine Turbidity CLEAR Urine pH 5.5 Urine Specific [place] 1.027 Urine Protein 30 mg/dL Urine Glucose (UA) NEG mg/dL Urine Ketones NEG mg/dL Urine Occult Blood SMALL Urine Nitrite NEG Urine Bilirubin NEG Urine Urobilinogen LESS THAN 2.0 MG/DL Urine Leukocyte Esterase NEG Urine RBC 8 /hpf Urine WBC 4 /hpf Urine Squamous Epithelial Cells 3 /hpf Urine Calcium Oxalate Crystals RARE /hpf Urine Bacteria RARE /hpf Urine Hyaline Casts 1 /lpf Urine Mucus FEW /lpf Microscopic Urinalysis Comment CULT NOT INDICATED Hematology Comments Platelet Estimate HIGH Platelet Morphology Comment NORMAL Red Cell Morphology Comment NORMAL Test 11/25/16 08:17 11/26/16 16:50 11/28/16 23:05 12/01/16 13:48 Differential Total Cells Counted 100 Neutrophils % (Manual) 75 % Band Neutrophils % 10 % Lymphocytes % 8 % Monocytes % 6 % Basophils % 1 % Neutrophils # (Manual) 9.9 TH/MM3 Toxic Granulation 1+ Fibrinogen 382 mg/dL Blood Gas Puncture Site RT RADIAL Blood Gas Patient Temperature 98.6 Blood Gas HCO3 29 mmol/L Blood Gas Base Excess 4.2 mmol/L Blood Gas Oxygen Saturation 84 % Arterial Blood pH 7.36 Arterial Blood Partial Pressure CO2 53 mmHg Arterial Blood Partial Pressure O2 56 mmHg Arterial Blood Oxygen Content 9.5 Vol % Arterial Blood Carboxyhemoglobin 2.0 % Arterial Blood Methemoglobin 0.9 % Blood Gas Hemoglobin 8.0 G/DL Oxygen Delivery Device VENT Blood Gas Ventilator Setting SEE COMMENTS Blood Gas Inspired Oxygen 60 % Prothrombin Time 11.1 SEC Prothromb Time International Ratio 1.0 RATIO Activated Partial Thromboplast Time 28.3 SEC Test 12/02/16 04:32 12/14/16 15:00 12/15/16 04:45 12/22/16 05:25 Blood Urea Nitrogen 13 MG/DL 24 MG/DL 22 MG/DL Creatinine 0.28 MG/DL 0.43 MG/DL 0.45 MG/DL Random Glucose 116 MG/DL 98 MG/DL 100 MG/DL Total Protein 5.0 GM/DL Albumin 1.4 GM/DL Calcium Level 7.7 MG/DL 8.3 MG/DL 8.4 MG/DL Phosphorus Level 3.1 MG/DL 3.8 MG/DL Magnesium Level 1.9 MG/DL 2.0 MG/DL 2.1 MG/DL Alkaline Phosphatase 70 U/L Aspartate Amino Transf (AST/SGOT) LESS THAN 3 U/L Alanine Aminotransferase (ALT/SGPT) 12 U/L Total Bilirubin 0.4 MG/DL Sodium Level 135 MEQ/L 135 MEQ/L 135 MEQ/L Potassium Level 3.7 MEQ/L 4.2 MEQ/L 4.2 MEQ/L Chloride Level 101 MEQ/L 99 MEQ/L 100 MEQ/L Carbon Dioxide Level 26.1 MEQ/L 29.7 MEQ/L 29.8 MEQ/L Prealbumin 19 MG/DL Iron Level 51 MCG/DL Total Iron Binding Capacity 223 MCG/DL Percent Iron Saturation 22.9 % Test 12/28/16 04:46 White Blood Count 7.8 TH/MM3 Red Blood Count 2.89 MIL/MM3 Hemoglobin 9.0 GM/DL Hematocrit 27.0 % Mean Corpuscular Volume 93.4 FL Mean Corpuscular Hemoglobin 31.1 PG Mean Corpuscular Hemoglobin Concent 33.3 % Red Cell Distribution Width 17.0 % Platelet Count 228 TH/MM3 Mean Platelet Volume 9.1 FL Neutrophils (%) (Auto) 63.7 % Lymphocytes (%) (Auto) 21.5 % Monocytes (%) (Auto) 9.1 % Eosinophils (%) (Auto) 4.3 % Basophils (%) (Auto) 1.4 % Neutrophils # (Auto) 5.0 TH/MM3 Lymphocytes # (Auto) 1.7 TH/MM3 Monocytes # (Auto) 0.7 TH/MM3 Eosinophils # (Auto) 0.3 TH/MM3 Basophils # (Auto) 0.1 TH/MM3 CBC Comment DIFF FINAL Differential Comment Blood Urea Nitrogen 18 MG/DL Creatinine 0.48 MG/DL Random Glucose 122 MG/DL Calcium Level 8.2 MG/DL Sodium Level 140 MEQ/L Potassium Level 4.4 MEQ/L Chloride Level 106 MEQ/L Carbon Dioxide Level 27.6 MEQ/L Anion Gap 6 MEQ/L Estimat Glomerular Filtration Rate 182 ML/MIN Objective Remarks GENERAL: Awake and alert, oriented, appears in nad. SKIN: All toes with digital ischemia, left 2nd finger and right ringer finger with distal digit ischemia. Stage 1-2 decubitus ulcer NECK: Bandage noted at neck in covering trach site c/d/i. CARDIOVASCULAR: Regular rate and rhythm. RESPIRATORY: No accessory muscle use. Clear to auscultation. Breath sounds equal bilaterally. GASTROINTESTINAL: Abdomen soft, non-tender, nondistended. Soft PEG in place, site c/d/i MUSCULOSKELETAL: Extremities without clubbing, cyanosis. Lower extremity edema improved. No obvious deformities. Bilateral radial and DP,PT ++ NEUROLOGICAL: Alert and oriented x3, pleasant. Speech IS soft with short sentences. Medications and IVs Current Medications Medications (Trade) Dose Ordered Sig/Adali Route Start Time Stop Time Status Last Admin (Heparin Inj) 5,000 units Q8HR SQ 10/14/16 22:00 Future Hold 11/13/16 21:20 (Tears Naturale Opth Soln) 1 drop TID EACH EYE 10/19/16 13:00 01/06/17 17:33 (Albuterol Neb) 2.5 mg Q2HR NEB PRN INH 10/19/16 09:45 11/22/16 22:09 Miscellaneous Information 1 Q361D XX 10/19/16 09:45 (Chlorhexidine 2% Cloth) 3 pack Taper DAILY@04 TOP 10/20/16 04:00 10/16/17 03:59 12/24/16 04:00 (Chlorhexidine 2% Cloth) 3 pack UNSCH PRN TOP 10/19/16 09:45 (Melatonin) 5 mg HS PO 11/01/16 21:00 01/07/17 21:23 (Cardizem) 90 mg Q6HR PO 11/02/16 12:00 01/08/17 05:22 (Baciguent Oint) 1 applic Q12HR TOPICAL 11/18/16 11:00 01/08/17 07:41 (Beneprotein Powder) 1 pack TID G-TUBE 11/19/16 09:00 01/08/17 07:40 (Peridex 0.12% Liq) 15 ml BID@08,20 MT 11/26/16 20:00 01/08/17 07:40 (Santyl Oint) 1 applic DAILY TOPICAL 11/30/16 12:00 01/08/17 07:41 (Racepinephrine 2.25% Neb) 0.5 ml Q4HR NEB PRN NEB 12/03/16 15:00 (Nitroglycerin 2% Oint) 2 inch Q6H PRN TOPICAL 12/04/16 09:15 (Catapres) 0.1 mg Q8H PO 12/04/16 10:00 01/07/17 17:09 (Vasotec Inj) 1.25 mg Q6H PRN IV PUSH 12/04/16 09:15 (NS Flush) DAILY IV FLUSH 12/04/16 18:00 01/02/17 09:00 (NS Flush) UNSCH PRN IV FLUSH 12/04/16 18:00 (Imodium Liq) 2 mg UNSCH PRN PO 12/14/16 10:45 (Lactinex) 1 tab TID PO 12/14/16 18:00 01/08/17 07:39 (Pepcid) 20 mg BID PO 12/16/16 21:00 01/08/17 07:39 (Ferrous Sulfate) 325 mg BID@ PO 12/22/16 12:00 01/07/17 17:09 (Vitamin C) 500 mg BID PO 12/22/16 09:00 01/08/17 07:39 Potassium Chloride/Sodium Chloride 1,000 ml @ 100 mls/hr Q10H IV 12/27/16 11:17 01/08/17 02:43 (NS Flush) 2 ml UNSCH PRN IVF 12/27/16 11:30 (NS Flush) 2 ml BID IVF 12/27/16 21:00 01/06/17 21:30 (Dulcolax Supp) 10 mg DAILY PRN RECTAL 12/27/16 11:30 (Colace) 100 mg BID PO 12/27/16 21:00 01/08/17 07:39 (Protonix) 40 mg DAILY PO 12/28/16 09:00 01/08/17 07:39 (Protonix Inj) 40 mg DAILY IVP 12/28/16 09:00 01/08/17 07:39 (Zofran Inj) 4 mg Q6H PRN IV PUSH 12/27/16 11:30 Potassium Chloride 100 ml @ 50 mls/hr UNSCH PRN IV 12/27/16 11:30 Magnesium Sulfate 4 gm/Sodium Chloride 108 ml @ 108 mls/hr UNSCH PRN IV 12/27/16 11:30 ([place] 10-325 Mg) 1 tab Q4H PRN PO 12/27/16 11:30 12/30/16 05:54 ([place] 10-325 Mg) 2 tab Q4H PRN PO 12/27/16 11:30 12/30/16 14:24 (Morphine Inj) 2 mg Q2H PRN IV PUSH 12/27/16 11:30 12/29/16 15:05 (Morphine Inj) 4 mg Q2H PRN IV PUSH 12/27/16 11:30 12/28/16 18:00 (Tylenol) 650 mg Q4H PRN PO 12/27/16 11:30 Calcium Gluconate 1 gm/Sodium Chloride 110 ml @ 110 mls/hr UNSCH PRN IV 12/27/16 12:00 (Keppra Liq) 500 mg Q12HR PEG 12/27/16 21:00 01/08/17 07:38 (Bacitracin Oint Packet) 0.9 gm DAILY TOPICAL 12/30/16 18:31 01/08/17 07:41 A/P Assessment and Plan 56-year-old male presents with intracranial bleed, was transferred from [facility]. 1. Subdural Hematoma/duraplasty status post left frontotemporal parietal craniotomy 10/08. 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 Initiated . - Continue Levetiracetam 500 mg per tube q12h. - 10/13 and 10/14 and 10/17) 10/19 left MCA territory vasospasm, status post successful verapamil treatment by IR with 20 mg verapamil - 10/17 CT brain - less hemisphere edema with herniation through left craniotomy site, improved. - Dr. Perry/neurosurgery. S/p left cranioplasty/bone flap 12/27/16. - Echocardiogram 10/14/16 revealed EF 40-45%. Septal hypokinesis. Moderate MR. Severe pulmonary hypertension with pulmonary artery pressures estimated 61 mmHg Limited Echo 11/06: LVEF 60-65%, Trivial mitral and tricuspid regurgitation, No vegetations noted. - On diltiazem's 90 mg by mouth every 6 hours and furosemide 20 mg daily. Monitor BP and if low hold meds. - neurologically stable and doing well, and continued PT and rehabilitation. - PT, OT, speech following. Patient had helmet. -Eating better. Will have dietitian for calorie count and will evaluate if we can remove feeding tube as patient it seems has adequate PO intake. Respiratory failure, S/P tracheostomy. Resolved now satting well on Room air. Monitor O2 sat, O2 supplement to keep O2 sat > 94 - S/p Trach Dr. Sullivan/Dr. Collazo 11/01 #8 [place] - CT angiogram chest/neck revealed right centrilobular bleeding likely source right bronchial artery. Repeat CT chest 11/29no visualization of active bleeding.- Resolved - 12/01 - embolization of right bronchial artery by IR- no further bleeding from tracheostomy - Redo trach 11/[address] Sullivan; down sized to uncuffed fenestrated 6 tracheostomy on 12/14 and now capped. - Albuterol/ipratropium aerosols every 6 hours with albuterol aerosols - Dr. Wilson plan is to downsize tube and probably considering tracheostomy removal - Tolerated tracheostomy capping. Has been decannulated. Tolerating room air. Now satting well on Room air, trach removed, trach site wound cultures pending, added bacitracin and wound care consulted for trach site wound. - Monitor Respiratory status Lower extremity edema improved. Ultrasound Doppler reviewed and no DVT. Patient with high risk of bleeding and is not chemoprophylaxis at this time. Continue SCDs and teds for DVT prophylaxis. Ileus- Resolved Elevated transaminases Hyperammonemia Severe protein caloric malnutrition- continue with tube feeds as tolerated. - Currently on Glucerna 1.5 goal 60 cc an hour. Consult technical support assistant to review formula. - free water per G tube 200mL per tube q6h. - Lansoprazole 30 mg by tube daily for GI prophylaxis will change this to Pepcid - Continue bowel regimen - Reglan DC 12/13- stools amount decreased and thicker in consistency- continue to monitor - Continue PEG feeding. s/p PEG 11/12/16 - speech following for swallowing progress - Tube feeds only at night, patient has regular trach during the daytime, will order ensure pudding - Dietitian consulted to reevaluate tube feeding rate. Right occlusive subclavian, axillary and bilateral superficial cephalic thrombus - limited Echo to evaluate vegetation-neg. ID following - Digital Ischemia with necrosis involving all toes and left 2nd finger and right ringer finger- stable, conservative management - Digits have demarcated, allow auto amputation. Cardizem PO currently and 90 mg every 6 hours (for digital ischemia, Raynaud's) - Continue bacitracin twice a day to affected areas - Central line for IV access. We'll need to be started on systemic anticoagulation at some point however with recent embolization for hemoptysis holding full anticoagulation at this time. - Consult vascular surgeon . Seen by Dr Valente plan for CTA Ao runoff Stage 2 sacral ulcer - ABD dressing with [employer]- staff nurse makes sure to keep area dry. Wound care also consulted. appreciate recommendations. - Turn position every 2 hours - Out of bed to chair activity Course of hospitalization complications Acute hypoxic Respiratory failure secondary to mucous plugging- Resolved Possible healthcare associated pneumonia, Septic Shock- resolved. ARDS - resolved Noncardiogenic/neurogenic pulmonary edema- resolved. Massive Hemoptysis - resolved Aspiration pneumonitis - resolved Cerebral Salt Wasting/SIADH-resolved now hypernatremic - Creatinine currently within normal limits -> resolved. - Monitor urine output Septic and cardiogenic shock- resolved. LV dysfunction secondary to SAH - persistent, now resolved Elevated troponin- secondary to SAH, unlikely to be ACS. - resolved. Pulmonary hypertension s/p PEA arrest 11/28 after ETT dislodgement, hypoxic arrest DVT prop SCD, no chemoprophylaxis secondary to risk for bleeding. Patient with lower extremity edema at this time will do ultrasound Doppler to rule out DVT this patient with high risk of bleeding and is not chemoprophylaxis at this time. Full Code Discharge Planning S/p left cranioplasty by Dr Perry neurosurgery on 12/27/16. He is fairly stable for DC when arrangements done. Pending SSI. Placement will be in long-term facility or long-term care. CM following for DC plan. Eating better. Will have dietitian for calorie count and will evaluate if we can remove feeding tube as patient it seems has adequate PO intake. Brayden Candelario MD Jan 08, 2017 09:14
[2017-01-08] MEDS: FERROUS SULFATE 325 MG (65 MG ELEMENTAL IRON) TAB PO SCH ×2 (11:38→17:30)
[2017-01-08] MEDS: MELATONIN 5 MG TAB PO SCH (22:28)
[2017-01-09] VITALS (8 sets, daily range): BP systolic 84–108; BP diastolic 53–64; PULSE 63–73; RESP 18–20; TEMP 97.7–98.5; O2SAT 96–99
[2017-01-09] MEDS: DILTIAZEM HCL 90 MG TAB PO SCH ×6 (00:58→17:20)
[2017-01-09] MEDS: cloNIDine HCL 0.1 MG TAB PO SCH ×4 (00:58→17:20)
[2017-01-09] MEDS: CHLORHEXIDINE GLUCONATE 2 % 1 PACK (2 CLOTHS) TOP SCH (03:10)
[2017-01-09] MEDS: BENEPROTEIN POWDER 1 PACK G-TUBE SCH ×3 (09:00→17:21)
[2017-01-09] MEDS: SODIUM CHLORIDE 0.9% FLUSH 5 ML FLUSH IVF SCH ×2 (09:00→21:00)
[2017-01-09] MEDS: ASCORBIC ACID 500 MG TAB PO SCH ×2 (09:05→22:11)
[2017-01-09] MEDS: DOCUSATE SODIUM 100 MG CAP PO SCH ×2 (09:06→22:11)
[2017-01-09] MEDS: LACTOBACILLUS ACIDOPHILUS TAB PO SCH ×3 (09:06→17:20)
[2017-01-09] MEDS: PANTOPRAZOLE SOD 40 MG DELAYED RELEASE TAB PO SCH (09:07)
[2017-01-09] MEDS: levETIRAcetam 500 MG/5 ML UDC PEG SCH ×2 (09:07→22:10)
[2017-01-09] MEDS: FAMOTIDINE 20 MG TAB PO SCH ×2 (09:07→22:11)
[2017-01-09] MEDS: SODIUM CHLORIDE 0.9% FLUSH 10 ML FLUSH IV FLUSH SCH (09:19)
[2017-01-09] MEDS: CHLORHEXIDINE 0.12% (ORAL KIT) 15 ML CUP MT SCH ×2 (09:19→20:00)
[2017-01-09] MEDS: ARTIFICIAL TEARS OPTH SOLN 15 ML BTL EACH EYE SCH ×3 (09:19→17:35)
[2017-01-09] MEDS: PANTOPRAZOLE SODIUM 40 MG VIAL IVP SCH (09:20)
--- NOTE | 2017-01-09 09:21 | HHI.PR ---
Subjective Remarks Seen in the presence of INFORMATION AND REFERRAL DIRECTOR, no nausea, vomit or diarrhea. Objective Vital Signs Date Time Temp Pulse Resp B/P (MAP) Pulse Ox O2 Delivery O2 Flow Rate FiO2 01/09/17 05:31 98.1 64 18 106/59 (75) 99 01/09/17 01:00 63 102/64 (77) 01/09/17 00:32 98.2 67 18 107/59 (75) 96 01/08/17 20:31 98.4 80 18 125/61 (82) 98 01/08/17 16:16 97.4 72 16 102/63 (76) 99 01/08/17 12:14 98.2 76 16 115/72 (86) 99 I/O 01/08/17 01/08/17 01/08/17 01/09/17 01/09/17 01/09/17 07:00 15:00 23:00 07:00 15:00 23:00 Intake Total 2183 ml 820 ml Output Total 1000 ml 3300 ml 350 ml 1300 ml Balance 1183 ml -2480 ml -350 ml -1300 ml Intake Oral 820 ml IV Total 1892 ml Tube Feeding 291 ml Output Urine Total 1000 ml 3300 ml 350 ml 1300 ml # Bowel Movements 1 Imaging Last Impressions Lower Extremity Ultrasound 12/29/16 0000 Signed Impressions: Service Date/Time: December 13:07 - CONCLUSION: No sonographic or Doppler findings of deep venous thrombosis. Joni Shelton MD Carotid Artery Ultrasound 12/27/16 0000 Signed Impressions: Service Date/Time: Tuesday, December 27, 2016 17:19 - CONCLUSION: Mild plaque at the carotid bulb regions bilaterally without a significant stenosis seen. Yosvany Alfaro MD Aorta w/Runoff CTA 12/27/16 0000 Signed Impressions: Service Date/Time: Wednesday, December 28, 2016 17:28 - CONCLUSION: Atherosclerotic calcification seen throughout the arterial system without an area of significant stenosis. The trifurcation vessels are only faintly opacified. Yosvany Alfaro MD Modified Barium Swallow 12/23/16 0000 Signed Impressions: Service Date/Time: Friday, December 23, 2016 09:11 - CONCLUSION: Negative for aspiration.. Remington Woodward MD FACR Chest X-Ray 12/04/16 6955 Signed Impressions: Service Date/Time: Sunday, December 04, 2016 18:55 - CONCLUSION: 1. Placement of left central line tip in superior vena cava. No pneumothorax. Mild basilar airspace disease. Small right effusion. Gurwinder Root MD Upper Extremity Ultrasound 12/04/16 0000 Signed Impressions: Service Date/Time: Sunday, December 04, 2016 15:37 - CONCLUSION: 1. Positive for occlusive deep venous thrombosis in the right axillary and subclavian vein. Occlusive superficial thrombus in bilateral cephalic veins. Gurwinder Root MD Angiography 12/01/16 0000 Signed Impressions: Service Date/Time: November 14:02 - CONCLUSION: 1. Right side up on her hemorrhage with angiography of the right bronchial artery revealing no source of active hemorrhage. Empiric embolization was performed. Santos Crockett Jr., MD Chest CT 11/28/16 0000 Signed Impressions: Service Date/Time: Tuesday, November 29, 2016 05:13 - CONCLUSION: 1. Patchy alveolar disease characteristic of edema or pneumonia. 2. Severe emphysema 3. Gastrojejunostomy tube looped in the stomach Harvey Morejon MD Chest/Thorax CTA 11/26/16 Signed Impressions: Service Date/Time: Saturday, November 26, 2016 20:18 - CONCLUSION: 1. Extensive filling defects within the right central bronchial tree characteristic of endobronchial hemorrhage. 2. Consolidating airspace disease in the right upper lobe and right lower lobe characteristic of hemorrhage and post obstructive lung consolidation. 3. Right bronchial artery is identified extending to the central right bronchial region 4. Advanced COPD. Nasir Amanda MD Abdomen X-Ray 11/19/16599 Signed Impressions: Service Date/Time: Saturday, November 19, 2016 02:44 - CONCLUSION: Unchanged bowel gas pattern potentially relating to an ileus. Santos Crockett Jr., MD Transcranial Doppler Study Complete 10/20/16599 Signed Impressions: Service Date/Time: October 07:54 - CONCLUSION: Slight interval elevation of flow velocity measurements and ratio on the left Yosvany Polk MD Liver Ultrasound 10/19/16 Signed Impressions: Service Date/Time: Wednesday, October 19, 2016 11:20 - CONCLUSION: 1. Sludge filled gallbladder with thickened wall. 2. Moderate size bilateral pleural effusions and mild upper abdominal ascites. Santos Vazquez MD Cerebral Arteriogram 10/19/16 0000 Signed Impressions: Service Date/Time: Wednesday, October 19, 2016 12:47 - CONCLUSION: Uncomplicated cerebral arteriography with spasmolytic therapy as described in detail above. Yosvany Polk MD Head CT 10/17/16 0000 Signed Impressions: Service Date/Time: Monday, October 17, 2016 15:06 - CONCLUSION: Ventricles are slightly larger without ventriculostomy. Edema in the left hemisphere the brain herniating through the operative site. Remington Woodward MD FACR Infusion Non-thrombolysis 10/14/16 1103 Signed Impressions: Service Date/Time: Friday, October 14, 2016 10:21 - CONCLUSION: 1. Uncomplicated infusion for spasmolysis Harvey Morejon MD Neck CTA 10/07/16 0000 Signed Impressions: Service Date/Time: Friday, October 07, 2016 15:03 - CONCLUSION: 1. Mild carotid bulb atherosclerotic calcification bilaterally. However, no significant stenosis is present in either internal carotid artery. 2. Paranasal sinus mucoperiosteal thickening. 3. Please refer to brain CTA report for description of the intracranial findings. Yosvany Ramirez MD Head CTA 10/07/16 0000 Signed Impressions: Service Date/Time: Friday, October 07, 2016 15:03 - CONCLUSION: 1. 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 2. Large left subdural hematoma measuring 1.3 cm in depth with a significant, 1.6 cm left to right subfalcine shift. Joni Shelton MD Procedures 10/13 Four-vessel cerebral angiography with verapamil treatment of vasospasm Status post left frontotemporal parietal craniectomy 10/08 for evacuation subdural hematoma/duraplasty. 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 parietal cranioplasty with replacement of skull flap by Dr Perry neurosurgery on 12/27/16 Other Results Laboratory Tests Test 10/11/16 23:50 10/14/16 10:00 10/15/16 02:10 10/15/16 03:40 Nasal Screen MRSA (PCR) MRSA NOT DETECTED Urine Osmolality 409 MOSM/KG Serum Osmolality 279 MOSM/KG Procalcitonin 6.86 ng/mL Random Cortisol 35.0 MCG/DL Test 10/16/16 01:07 10/18/16 05:45 10/19/16 00:00 10/19/16 12:00 Troponin I 2.47 NG/ML Protein Corrected Calcium 7.9 MG/DL Total Creatine Kinase 1073 U/L Creatine Kinase MB 14.1 NG/ML Creatine Kinase MB % 1.3 % Thyroid Stimulating Hormone 3rd Gen 0.256 uIU/ML Urine Amorphous Sediment RARE Urine Random Sodium 49 MEQ/L Test 10/20/16 10:40 10/20/16 13:00 10/21/16 04:20 10/21/16 14:30 Phenytoin (Dilantin) Level 6.0 MCG/ML Blood Urea Nitrogen 19 MG/DL Creatinine 0.53 MG/DL Random Glucose 214 MG/DL Total Protein 5.9 GM/DL Albumin 1.5 GM/DL Calcium Level 7.6 MG/DL Phosphorus Level 0.9 MG/DL Magnesium Level 2.2 MG/DL Alkaline Phosphatase 137 U/L Aspartate Amino Transf (AST/SGOT) 112 U/L Alanine Aminotransferase (ALT/SGPT) 195 U/L Total Bilirubin 0.4 MG/DL Direct Bilirubin 0.2 MG/DL Sodium Level 146 MEQ/L Potassium Level 2.7 MEQ/L Chloride Level 111 MEQ/L Carbon Dioxide Level 28.3 MEQ/L Indirect Bilirubin 0.2 MG/DL Lactic Acid Level 1.4 mmol/L Amylase Level 29 U/L Lipase 76 U/L Free Thyroxine 0.70 NG/DL Free Triiodothyronine (T3) pg/dL 0.90 PG/ML Test 10/31/16 05:08 11/02/16 18:00 11/04/16 01:40 11/04/16 05:00 B-Type Natriuretic Peptide 765 PG/ML Stool C. difficile Toxin (PCR) NEGATIVE Stl C. difficile Toxin Epiderm 027 PRESUMPTIVE NEGATIVE Vancomycin Level Trough 25.2 MCG/ML Ammonia 37 MCMOL/L Test 11/05/16 15:00 11/14/16 11:40 11/20/16 05:17 11/22/16 05:24 Random Vancomycin Level 7.1 COMMENT Urine Color YELLOW Urine Turbidity CLEAR Urine pH 5.5 Urine Specific Strang 1.027 Urine Protein 30 mg/dL Urine Glucose (UA) NEG mg/dL Urine Ketones NEG mg/dL Urine Occult Blood SMALL Urine Nitrite NEG Urine Bilirubin NEG Urine Urobilinogen LESS THAN 2.0 MG/DL Urine Leukocyte Esterase NEG Urine RBC 8 /hpf Urine WBC 4 /hpf Urine Squamous Epithelial Cells 3 /hpf Urine Calcium Oxalate Crystals RARE /hpf Urine Bacteria RARE /hpf Urine Hyaline Casts 1 /lpf Urine Mucus FEW /lpf Microscopic Urinalysis Comment CULT NOT INDICATED Hematology Comments Platelet Estimate HIGH Platelet Morphology Comment NORMAL Red Cell Morphology Comment NORMAL Test 11/25/16 08:17 11/26/16 16:50 11/28/16 23:05 12/01/16 13:48 Differential Total Cells Counted 100 Neutrophils % (Manual) 75 % Band Neutrophils % 10 % Lymphocytes % 8 % Monocytes % 6 % Basophils % 1 % Neutrophils # (Manual) 9.9 TH/MM3 Toxic Granulation 1+ Fibrinogen 382 mg/dL Blood Gas Puncture Site RT RADIAL Blood Gas Patient Temperature 98.6 Blood Gas HCO3 29 mmol/L Blood Gas Base Excess 4.2 mmol/L Blood Gas Oxygen Saturation 84 % Arterial Blood pH 7.36 Arterial Blood Partial Pressure CO2 53 mmHg Arterial Blood Partial Pressure O2 56 mmHg Arterial Blood Oxygen Content 9.5 Vol % Arterial Blood Carboxyhemoglobin 2.0 % Arterial Blood Methemoglobin 0.9 % Blood Gas Hemoglobin 8.0 G/DL Oxygen Delivery Device VENT Blood Gas Ventilator Setting SEE COMMENTS Blood Gas Inspired Oxygen 60 % Prothrombin Time 11.1 SEC Prothromb Time International Ratio 1.0 RATIO Activated Partial Thromboplast Time 28.3 SEC Test 12/02/16 04:32 12/14/16 15:00 12/15/16 04:45 12/22/16 05:25 Blood Urea Nitrogen 13 MG/DL 24 MG/DL 22 MG/DL Creatinine 0.28 MG/DL 0.43 MG/DL 0.45 MG/DL Random Glucose 116 MG/DL 98 MG/DL 100 MG/DL Total Protein 5.0 GM/DL Albumin 1.4 GM/DL Calcium Level 7.7 MG/DL 8.3 MG/DL 8.4 MG/DL Phosphorus Level 3.1 MG/DL 3.8 MG/DL Magnesium Level 1.9 MG/DL 2.0 MG/DL 2.1 MG/DL Alkaline Phosphatase 70 U/L Aspartate Amino Transf (AST/SGOT) LESS THAN 3 U/L Alanine Aminotransferase (ALT/SGPT) 12 U/L Total Bilirubin 0.4 MG/DL Sodium Level 135 MEQ/L 135 MEQ/L 135 MEQ/L Potassium Level 3.7 MEQ/L 4.2 MEQ/L 4.2 MEQ/L Chloride Level 101 MEQ/L 99 MEQ/L 100 MEQ/L Carbon Dioxide Level 26.1 MEQ/L 29.7 MEQ/L 29.8 MEQ/L Prealbumin 19 MG/DL Iron Level 51 MCG/DL Total Iron Binding Capacity 223 MCG/DL Percent Iron Saturation 22.9 % Test 12/28/16 04:46 White Blood Count 7.8 TH/MM3 Red Blood Count 2.89 MIL/MM3 Hemoglobin 9.0 GM/DL Hematocrit 27.0 % Mean Corpuscular Volume 93.4 FL Mean Corpuscular Hemoglobin 31.1 PG Mean Corpuscular Hemoglobin Concent 33.3 % Red Cell Distribution Width 17.0 % Platelet Count 228 TH/MM3 Mean Platelet Volume 9.1 FL Neutrophils (%) (Auto) 63.7 % Lymphocytes (%) (Auto) 21.5 % Monocytes (%) (Auto) 9.1 % Eosinophils (%) (Auto) 4.3 % Basophils (%) (Auto) 1.4 % Neutrophils # (Auto) 5.0 TH/MM3 Lymphocytes # (Auto) 1.7 TH/MM3 Monocytes # (Auto) 0.7 TH/MM3 Eosinophils # (Auto) 0.3 TH/MM3 Basophils # (Auto) 0.1 TH/MM3 CBC Comment DIFF FINAL Differential Comment Blood Urea Nitrogen 18 MG/DL Creatinine 0.48 MG/DL Random Glucose 122 MG/DL Calcium Level 8.2 MG/DL Sodium Level 140 MEQ/L Potassium Level 4.4 MEQ/L Chloride Level 106 MEQ/L Carbon Dioxide Level 27.6 MEQ/L Anion Gap 6 MEQ/L Estimat Glomerular Filtration Rate 182 ML/MIN Objective Remarks GENERAL: Awake and alert, oriented, appears in nad. SKIN: All toes with digital ischemia, left 2nd finger and right ringer finger with distal digit ischemia. Stage 1-2 decubitus ulcer NECK: Bandage noted at neck in covering trach site c/d/i. CARDIOVASCULAR: Regular rate and rhythm. RESPIRATORY: No accessory muscle use. Clear to auscultation. Breath sounds equal bilaterally. GASTROINTESTINAL: Abdomen soft, non-tender, nondistended. Soft PEG in place, site c/d/i MUSCULOSKELETAL: Extremities without clubbing, cyanosis. NEUROLOGICAL: Alert and oriented x3, pleasant. Speech IS soft with short sentences. Medications and IVs Current Medications Medications (Trade) Dose Ordered Sig/Adali Route Start Time Stop Time Status Last Admin (Heparin Inj) 5,000 units Q8HR SQ 10/14/16 22:00 Future Hold 11/13/16 21:20 (Tears Naturale Opth Soln) 1 drop TID EACH EYE 10/19/16 13:00 01/06/17 17:33 (Albuterol Neb) 2.5 mg Q2HR NEB PRN INH 10/19/16 09:45 11/22/16 22:09 Miscellaneous Information 1 Q361D XX 10/19/16 09:45 (Chlorhexidine 2% Cloth) Taper DAILY@04 TOP 10/20/16 04:00 10/16/17 03:59 12/24/16 04:00 (Chlorhexidine 2% Cloth) 3 pack UNSCH PRN TOP 10/19/16 09:45 (Melatonin) 5 mg HS PO 11/01/16 21:00 01/08/17 22:28 (Cardizem) 90 mg Q6HR PO 11/02/16 12:00 01/09/17 07:44 (Baciguent Oint) 1 applic Q12HR TOPICAL 11/18/16 11:00 01/08/17 21:00 (Beneprotein Powder) 1 pack TID G-TUBE 11/19/16 09:00 01/09/17 09:00 (Peridex 0.12% Liq) 15 ml BID@08,20 MT 11/26/16 20:00 01/08/17 20:00 (Santyl Oint) 1 applic DAILY TOPICAL 11/30/16 12:00 01/08/17 07:41 (Racepinephrine 2.25% Neb) 0.5 ml Q4HR NEB PRN NEB 12/03/16 15:00 (Nitroglycerin 2% Oint) 2 inch Q6H PRN TOPICAL 12/04/16 09:15 (Catapres) 0.1 mg Q8H PO 12/04/16 10:00 01/09/17 09:07 (Vasotec Inj) 1.25 mg Q6H PRN IV PUSH 12/04/16 09:15 (NS Flush) DAILY IV FLUSH 12/04/16 18:00 01/02/17 09:00 (NS Flush) UNSCH PRN IV FLUSH 12/04/16 18:00 (Imodium Liq) 2 mg UNSCH PRN PO 12/14/16 10:45 (Lactinex) 1 tab TID PO 12/14/16 18:00 01/09/17 09:06 (Pepcid) 20 mg BID PO 12/16/16 21:00 01/09/17 09:07 (Ferrous Sulfate) 325 mg BID@,17 PO 12/22/16 12:00 01/08/17 17:30 (Vitamin C) 500 mg BID PO 12/22/16 09:00 01/09/17 09:05 Potassium Chloride/Sodium Chloride 1,000 ml @ 100 mls/hr Q10H IV 12/27/16 11:17 01/08/17 22:29 (NS Flush) 2 ml UNSCH PRN IVF 12/27/16 11:30 (NS Flush) 2 ml BID IVF 12/27/16 21:00 01/09/17 09:00 (Dulcolax Supp) 10 mg DAILY PRN RECTAL 12/27/16 11:30 (Colace) 100 mg BID PO 12/27/16 21:00 01/09/17 09:06 (Protonix) 40 mg DAILY PO 12/28/16 09:00 01/09/17 09:07 (Protonix Inj) 40 mg DAILY IVP 12/28/16 09:00 01/08/17 07:39 (Zofran Inj) 4 mg Q6H PRN IV PUSH 12/27/16 11:30 Potassium Chloride 100 ml @ 50 mls/hr UNSCH PRN IV 12/27/16 11:30 Magnesium Sulfate 4 gm/Sodium Chloride 108 ml @ 108 mls/hr UNSCH PRN IV 12/27/16 11:30 (Morton 10-325 Mg) 1 tab Q4H PRN PO 12/27/16 11:30 12/30/16 05:54 (Morton 10-325 Mg) 2 tab Q4H PRN PO 12/27/16 11:30 12/30/16 14:24 (Morphine Inj) 2 mg Q2H PRN IV PUSH 12/27/16 11:30 12/29/16 15:05 (Morphine Inj) 4 mg Q2H PRN IV PUSH 12/27/16 11:30 12/28/16 18:00 (Tylenol) 650 mg Q4H PRN PO 12/27/16 11:30 Calcium Gluconate 1 gm/Sodium Chloride 110 ml @ 110 mls/hr UNSCH PRN IV 12/27/16 12:00 (Keppra Liq) 500 mg Q12HR PEG 12/27/16 21:00 01/09/17 09:07 (Bacitracin Oint Packet) 0.9 gm DAILY TOPICAL 12/30/16 18:31 01/08/17 07:41 A/P Assessment and Plan 56-year-old male presents with intracranial bleed, was transferred from [facility]. 1. Subdural Hematoma/duraplasty status post left frontotemporal parietal craniotomy 10/08. 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 Initiated . - Continue Levetiracetam 500 mg per tube q12h. - 10/13 and 10/14 and 10/17) 10/19 left MCA territory vasospasm, status post successful verapamil treatment by IR with 20 mg verapamil - 10/17 CT brain - less hemisphere edema with herniation through left craniotomy site, improved. - Dr. Perry/neurosurgery. S/p left cranioplasty/bone flap 12/27/16. - Echocardiogram 10/14/16 revealed EF 40-45%. Septal hypokinesis. Moderate MR. Severe pulmonary hypertension with pulmonary artery pressures estimated 61 mmHg Limited Echo 11/06: LVEF 60-65%, Trivial mitral and tricuspid regurgitation, No vegetations noted. - On diltiazem's 90 mg by mouth every 6 hours and furosemide 20 mg daily. Monitor BP and if low hold meds. - neurologically stable and doing well, and continued PT and rehabilitation. - PT, OT, speech following. Patient had helmet. -Eating better. Will have dietitian for calorie count and will evaluate if we can remove feeding tube as patient it seems has adequate PO intake. Bilateral Respiratory failure, S/P tracheostomy. Resolved now satting well on Room air. Monitor O2 sat, O2 supplement to keep O2 sat > 94 - S/p Trach Dr. Sullivan/Dr. Collazo 11/01 #8 [place] - CT angiogram chest/neck revealed right centrilobular bleeding likely source right bronchial artery. Repeat CT chest 11/29no visualization of active bleeding.- Resolved - 12/01 - embolization of right bronchial artery by IR- no further bleeding from tracheostomy - Redo trach 11/[address] Sullivan; down sized to uncuffed fenestrated 6 tracheostomy on 12/14 and now capped. - Albuterol/ipratropium aerosols every 6 hours with albuterol aerosols - Dr. Wilson plan is to downsize tube and probably considering tracheostomy removal - Tolerated tracheostomy capping. Has been decannulated. Tolerating room air. Now satting well on Room air, trach removed, trach site wound cultures pending, added bacitracin and wound care consulted for trach site wound. - Monitor Respiratory status Lower extremity edema improved. Ultrasound Doppler reviewed and no DVT. Patient with high risk of bleeding and is not chemoprophylaxis at this time. Continue SCDs and teds for DVT prophylaxis. Ileus- Resolved Elevated transaminases Hyperammonemia Severe protein caloric malnutrition- continue with tube feeds as tolerated. - Currently on Glucerna 1.5 goal 60 cc an hour. Consult inside sales professional to review formula. - free water per G tube 200mL per tube q6h. - Lansoprazole 30 mg by tube daily for GI prophylaxis will change this to Pepcid - Continue bowel regimen - Reglan DC 12/13- stools amount decreased and thicker in consistency- continue to monitor - Continue PEG feeding. s/p PEG 11/12/16 - speech following for swallowing progress - Tube feeds only at night, patient has regular trach during the daytime, will order ensure pudding - Dietitian consulted to reevaluate tube feeding rate. Right occlusive subclavian, axillary and bilateral superficial cephalic thrombus - limited Echo to evaluate vegetation-neg. ID following - Digital Ischemia with necrosis involving all toes and left 2nd finger and right ringer finger- stable, conservative management - Digits have demarcated, allow auto amputation. Cardizem PO currently and 90 mg every 6 hours (for digital ischemia, Raynaud's) - Continue bacitracin twice a day to affected areas - Central line for IV access. We'll need to be started on systemic anticoagulation at some point however with recent embolization for hemoptysis holding full anticoagulation at this time. - Consult vascular surgeon . Seen by Dr Valente plan for CTA Ao runoff Stage 2 sacral ulcer - ABD dressing with [employer]- staff nurse makes sure to keep area dry. Wound care also consulted. appreciate recommendations. - Turn position every 2 hours - Out of bed to chair activity Course of hospitalization complications Acute hypoxic Respiratory failure secondary to mucous plugging- Resolved Possible healthcare associated pneumonia, Septic Shock- resolved. ARDS - resolved Noncardiogenic/neurogenic pulmonary edema- resolved. Massive Hemoptysis - resolved Aspiration pneumonitis - resolved Cerebral Salt Wasting/SIADH-resolved now hypernatremic - Creatinine currently within normal limits -> resolved. - Monitor urine output Septic and cardiogenic shock- resolved. LV dysfunction secondary to SAH - persistent, now resolved Elevated troponin- secondary to SAH, unlikely to be ACS. - resolved. Pulmonary hypertension s/p PEA arrest 11/28 after ETT dislodgement, hypoxic arrest DVT prop SCD, no chemoprophylaxis secondary to risk for bleeding. Discharge Planning S/p left cranioplasty by Dr Perry neurosurgery on 12/27/16. He is fairly stable for DC when arrangements done. Pending SSI. [facility] or [facility]-term care. CM following for DC plan. Eating better. Will have dietitian for calorie count and will evaluate if we can remove feeding tube as patient it seems has adequate PO intake. Brayden Candelario MD Jan 09, 2017 09:21
[2017-01-09] MEDS: NS + KCL 20 MEQ INJ 1,000 ML IV SCH ×3 (09:22→23:47)
[2017-01-09] MEDS: BACITRACIN OINT 0.9 GM PKT TOPICAL SCH (09:22)
[2017-01-09] MEDS: COLLAGENASE OINT 30 GM TUBE TOPICAL SCH (09:22)
[2017-01-09] MEDS: BACITRACIN TOP OINT 15 GM TUBE TOPICAL SCH ×2 (09:22→22:12)
[2017-01-09] MEDS: FERROUS SULFATE 325 MG (65 MG ELEMENTAL IRON) TAB PO SCH ×2 (13:16→17:20)
[2017-01-09] MEDS: MELATONIN 5 MG TAB PO SCH (22:11)
[2017-01-10] VITALS: BP 100/55; PULSE 61; RESP 20; TEMP 97.9; O2SAT 93
[2017-01-10] MEDS: DILTIAZEM HCL 90 MG TAB PO SCH ×4 (01:22→18:30)
[2017-01-10] MEDS: cloNIDine HCL 0.1 MG TAB PO SCH ×2 (01:22→08:54)
[2017-01-10 04:00] VITALS: BP 102/57; PULSE 62; RESP 20; TEMP 97.8; O2SAT 97
[2017-01-10] MEDS: CHLORHEXIDINE GLUCONATE 2 % 1 PACK (2 CLOTHS) TOP SCH (04:30)
[2017-01-10 08:00] VITALS: BP 108/64; PULSE 18; RESP 18; TEMP 97.6; O2SAT 100
[2017-01-10] MEDS: CHLORHEXIDINE 0.12% (ORAL KIT) 15 ML CUP MT SCH ×2 (08:00→20:00)
[2017-01-10] MEDS: PANTOPRAZOLE SODIUM 40 MG VIAL IVP SCH (08:51)
[2017-01-10] MEDS: SODIUM CHLORIDE 0.9% FLUSH 10 ML FLUSH IV FLUSH SCH (08:51)
[2017-01-10] MEDS: ARTIFICIAL TEARS OPTH SOLN 15 ML BTL EACH EYE SCH ×3 (08:51→18:30)
[2017-01-10] MEDS: BACITRACIN OINT 0.9 GM PKT TOPICAL SCH (09:00)
[2017-01-10] MEDS: BENEPROTEIN POWDER 1 PACK G-TUBE SCH ×3 (09:00→18:00)
[2017-01-10] MEDS: SODIUM CHLORIDE 0.9% FLUSH 5 ML FLUSH IVF SCH ×2 (09:00→21:32)
[2017-01-10] MEDS: FAMOTIDINE 20 MG TAB PO SCH ×2 (09:14→21:30)
[2017-01-10] MEDS: DOCUSATE SODIUM 100 MG CAP PO SCH ×2 (09:15→21:30)
[2017-01-10] MEDS: ASCORBIC ACID 500 MG TAB PO SCH ×2 (09:15→21:30)
[2017-01-10] MEDS: LACTOBACILLUS ACIDOPHILUS TAB PO SCH ×3 (09:15→18:30)
[2017-01-10] MEDS: PANTOPRAZOLE SOD 40 MG DELAYED RELEASE TAB PO SCH (09:16)
[2017-01-10] MEDS: levETIRAcetam 500 MG/5 ML UDC PEG SCH ×2 (09:17→21:30)
--- NOTE | 2017-01-10 09:17 | HHI.PR ---
Subjective Remarks No changes to anterior assessment, Discussed with his Mrs. Jessica Johansen all questions answered to the best of my abilities. No nausea, vomit or diarrhea. Objective Vital Signs Date Time Temp Pulse Resp B/P (MAP) Pulse Ox O2 Delivery O2 Flow Rate FiO2 01/10/17 08:00 97.6 18 18 108/64 (79) 100 01/10/17 04:00 97.8 62 20 102/57 (72) 97 01/10/17 00:00 97.9 61 20 100/55 (70) 93 01/09/17 20:16 97/57 (70) 01/09/17 20:00 98.5 65 20 84/53 (63) 97 01/09/17 16:00 98.2 72 18 97/56 (70) 98 01/09/17 12:00 97.7 73 18 92/58 (69) 98 I/O 01/09/17 01/09/17 01/09/17 01/10/17 01/10/17 01/10/17 07:00 15:00 23:00 07:00 15:00 23:00 Intake Total 600 ml Output Total 1300 ml 1675 ml 350 ml Balance -1300 ml -1075 ml -350 ml Intake Oral 600 ml Output Urine Total 1300 ml 1675 ml 350 ml Imaging Last Impressions Lower Extremity Ultrasound 12/29/16 0000 Signed Impressions: Service Date/Time: December 13:07 - CONCLUSION: No sonographic or Doppler findings of deep venous thrombosis. Joni Shelton MD Carotid Artery Ultrasound 12/27/16 0000 Signed Impressions: Service Date/Time: Tuesday, December 27, 2016 17:19 - CONCLUSION: Mild plaque at the carotid bulb regions bilaterally without a significant stenosis seen. Yosvany Alfaro MD Aorta w/Runoff CTA 12/27/16 0000 Signed Impressions: Service Date/Time: Wednesday, December 28, 2016 17:28 - CONCLUSION: Atherosclerotic calcification seen throughout the arterial system without an area of significant stenosis. The trifurcation vessels are only faintly opacified. Yosvany Alfaro MD Modified Barium Swallow 12/23/16 0000 Signed Impressions: Service Date/Time: Friday, December 23, 2016 09:11 - CONCLUSION: Negative for aspiration.. Remington Woodward MD FACR Chest X-Ray 12/04/16 1753 Signed Impressions: Service Date/Time: Sunday, December 04, 2016 18:55 - CONCLUSION: 1. Placement of left central line tip in superior vena cava. No pneumothorax. Mild basilar airspace disease. Small right effusion. Gurwinder Root MD Upper Extremity Ultrasound 12/04/16 Signed Impressions: Service Date/Time: Sunday, December 04, 2016 15:37 - CONCLUSION: 1. Positive for occlusive deep venous thrombosis in the right axillary and subclavian vein. Occlusive superficial thrombus in bilateral cephalic veins. Gurwinder Root MD Angiography 12/01/16 Signed Impressions: Service Date/Time: November 14:02 - CONCLUSION: 1. Right side up on her hemorrhage with angiography of the right bronchial artery revealing no source of active hemorrhage. Empiric embolization was performed. Santos Crockett Jr., MD Chest CT 11/28/16 Signed Impressions: Service Date/Time: Tuesday, November 29, 2016 05:13 - CONCLUSION: 1. Patchy alveolar disease characteristic of edema or pneumonia. 2. Severe emphysema 3. Gastrojejunostomy tube looped in the stomach Harvey Morejon MD Chest/Thorax CTA 11/26/16 Signed Impressions: Service Date/Time: Saturday, November 26, 2016 20:18 - CONCLUSION: 1. Extensive filling defects within the right central bronchial tree characteristic of endobronchial hemorrhage. 2. Consolidating airspace disease in the right upper lobe and right lower lobe characteristic of hemorrhage and post obstructive lung consolidation. 3. Right bronchial artery is identified extending to the central right bronchial region 4. Advanced COPD. Nasir Amanda MD Abdomen X-Ray 11/19/16599 Signed Impressions: Service Date/Time: Saturday, November 19, 2016 02:44 - CONCLUSION: Unchanged bowel gas pattern potentially relating to an ileus. Santos Crockett Jr., MD Transcranial Doppler Study Complete 10/20/16599 Signed Impressions: Service Date/Time: October 07:54 - CONCLUSION: Slight interval elevation of flow velocity measurements and ratio on the left Yosvany Polk MD Liver Ultrasound 10/19/16 Signed Impressions: Service Date/Time: Wednesday, October 19, 2016 11:20 - CONCLUSION: 1. Sludge filled gallbladder with thickened wall. 2. Moderate size bilateral pleural effusions and mild upper abdominal ascites. Santos Vazquez MD Cerebral Arteriogram 10/19/16 0000 Signed Impressions: Service Date/Time: Wednesday, October 19, 2016 12:47 - CONCLUSION: Uncomplicated cerebral arteriography with spasmolytic therapy as described in detail above. Yosvany Polk MD Head CT 10/17/16 0000 Signed Impressions: Service Date/Time: Monday, October 17, 2016 15:06 - CONCLUSION: Ventricles are slightly larger without ventriculostomy. Edema in the left hemisphere the brain herniating through the operative site. Remington Woodward MD FACR Infusion Non-thrombolysis 10/14/16 1103 Signed Impressions: Service Date/Time: Friday, October 14, 2016 10:21 - CONCLUSION: 1. Uncomplicated infusion for spasmolysis Harvey Morejon MD Neck CTA 10/07/16 0000 Signed Impressions: Service Date/Time: Friday, October 07, 2016 15:03 - CONCLUSION: 1. Mild carotid bulb atherosclerotic calcification bilaterally. However, no significant stenosis is present in either internal carotid artery. 2. Paranasal sinus mucoperiosteal thickening. 3. Please refer to brain CTA report for description of the intracranial findings. Yosvany Ramirez MD Head CTA 10/07/16 0000 Signed Impressions: Service Date/Time: Friday, October 07, 2016 15:03 - CONCLUSION: 1. 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 2. Large left subdural hematoma measuring 1.3 cm in depth with a significant, 1.6 cm left to right subfalcine shift. Joni Shelton MD Procedures 10/13 Four-vessel cerebral angiography with verapamil treatment of vasospasm Status post left frontotemporal parietal craniectomy 10/08 for evacuation subdural hematoma/duraplasty. 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 parietal cranioplasty with replacement of skull flap by Dr Perry neurosurgery on 12/27/16 Other Results Laboratory Tests Test 10/11/16 23:50 10/14/16 10:00 10/15/16 02:10 10/15/16 03:40 Nasal Screen MRSA (PCR) MRSA NOT DETECTED Urine Osmolality 409 MOSM/KG Serum Osmolality 279 MOSM/KG Procalcitonin 6.86 ng/mL Random Cortisol 35.0 MCG/DL Test 10/16/16 01:07 10/18/16 05:45 10/19/16 00:00 10/19/16 12:00 Troponin I 2.47 NG/ML Protein Corrected Calcium 7.9 MG/DL Total Creatine Kinase 1073 U/L Creatine Kinase MB 14.1 NG/ML Creatine Kinase MB % 1.3 % Thyroid Stimulating Hormone 3rd Gen 0.256 uIU/ML Urine Amorphous Sediment RARE Urine Random Sodium 49 MEQ/L Test 10/20/16 10:40 10/20/16 13:00 10/21/16 04:20 10/21/16 14:30 Phenytoin (Dilantin) Level 6.0 MCG/ML Blood Urea Nitrogen 19 MG/DL Creatinine 0.53 MG/DL Random Glucose 214 MG/DL Total Protein 5.9 GM/DL Albumin 1.5 GM/DL Calcium Level 7.6 MG/DL Phosphorus Level 0.9 MG/DL Magnesium Level 2.2 MG/DL Alkaline Phosphatase 137 U/L Aspartate Amino Transf (AST/SGOT) 112 U/L Alanine Aminotransferase (ALT/SGPT) 195 U/L Total Bilirubin 0.4 MG/DL Direct Bilirubin 0.2 MG/DL Sodium Level 146 MEQ/L Potassium Level 2.7 MEQ/L Chloride Level 111 MEQ/L Carbon Dioxide Level 28.3 MEQ/L Indirect Bilirubin 0.2 MG/DL Lactic Acid Level 1.4 mmol/L Amylase Level 29 U/L Lipase 76 U/L Free Thyroxine 0.70 NG/DL Free Triiodothyronine (T3) pg/dL 0.90 PG/ML Test 10/31/16 05:08 11/02/16 18:00 11/04/16 01:40 11/04/16 05:00 B-Type Natriuretic Peptide 765 PG/ML Stool C. difficile Toxin (PCR) NEGATIVE Stl C. difficile Toxin Epiderm 027 PRESUMPTIVE NEGATIVE Vancomycin Level Trough 25.2 MCG/ML Ammonia 37 MCMOL/L Test 11/05/16 15:00 11/14/16 11:40 11/20/16 05:17 11/22/16 05:24 Random Vancomycin Level 7.1 COMMENT Urine Color YELLOW Urine Turbidity CLEAR Urine pH 5.5 Urine Specific [place] 1.027 Urine Protein 30 mg/dL Urine Glucose (UA) NEG mg/dL Urine Ketones NEG mg/dL Urine Occult Blood SMALL Urine Nitrite NEG Urine Bilirubin NEG Urine Urobilinogen LESS THAN 2.0 MG/DL Urine Leukocyte Esterase NEG Urine RBC 8 /hpf Urine WBC 4 /hpf Urine Squamous Epithelial Cells 3 /hpf Urine Calcium Oxalate Crystals RARE /hpf Urine Bacteria RARE /hpf Urine Hyaline Casts 1 /lpf Urine Mucus FEW /lpf Microscopic Urinalysis Comment CULT NOT INDICATED Hematology Comments Platelet Estimate HIGH Platelet Morphology Comment NORMAL Red Cell Morphology Comment NORMAL Test 11/25/16 08:17 11/26/16 16:50 11/28/16 23:05 12/01/16 13:48 Differential Total Cells Counted 100 Neutrophils % (Manual) 75 % Band Neutrophils % 10 % Lymphocytes % 8 % Monocytes % 6 % Basophils % 1 % Neutrophils # (Manual) 9.9 TH/MM3 Toxic Granulation 1+ Fibrinogen 382 mg/dL Blood Gas Puncture Site RT RADIAL Blood Gas Patient Temperature 98.6 Blood Gas HCO3 29 mmol/L Blood Gas Base Excess 4.2 mmol/L Blood Gas Oxygen Saturation 84 % Arterial Blood pH 7.36 Arterial Blood Partial Pressure CO2 53 mmHg Arterial Blood Partial Pressure O2 56 mmHg Arterial Blood Oxygen Content 9.5 Vol % Arterial Blood Carboxyhemoglobin 2.0 % Arterial Blood Methemoglobin 0.9 % Blood Gas Hemoglobin 8.0 G/DL Oxygen Delivery Device VENT Blood Gas Ventilator Setting SEE COMMENTS Blood Gas Inspired Oxygen 60 % Prothrombin Time 11.1 SEC Prothromb Time International Ratio 1.0 RATIO Activated Partial Thromboplast Time 28.3 SEC Test 12/02/16 04:32 12/14/16 15:00 12/15/16 04:45 12/22/16 05:25 Blood Urea Nitrogen 13 MG/DL 24 MG/DL 22 MG/DL Creatinine 0.28 MG/DL 0.43 MG/DL 0.45 MG/DL Random Glucose 116 MG/DL 98 MG/DL 100 MG/DL Total Protein 5.0 GM/DL Albumin 1.4 GM/DL Calcium Level 7.7 MG/DL 8.3 MG/DL 8.4 MG/DL Phosphorus Level 3.1 MG/DL 3.8 MG/DL Magnesium Level 1.9 MG/DL 2.0 MG/DL 2.1 MG/DL Alkaline Phosphatase 70 U/L Aspartate Amino Transf (AST/SGOT) LESS THAN 3 U/L Alanine Aminotransferase (ALT/SGPT) 12 U/L Total Bilirubin 0.4 MG/DL Sodium Level 135 MEQ/L 135 MEQ/L 135 MEQ/L Potassium Level 3.7 MEQ/L 4.2 MEQ/L 4.2 MEQ/L Chloride Level 101 MEQ/L 99 MEQ/L 100 MEQ/L Carbon Dioxide Level 26.1 MEQ/L 29.7 MEQ/L 29.8 MEQ/L Prealbumin 19 MG/DL Iron Level 51 MCG/DL Total Iron Binding Capacity 223 MCG/DL Percent Iron Saturation 22.9 % Test 12/28/16 04:46 White Blood Count 7.8 TH/MM3 Red Blood Count 2.89 MIL/MM3 Hemoglobin 9.0 GM/DL Hematocrit 27.0 % Mean Corpuscular Volume 93.4 FL Mean Corpuscular Hemoglobin 31.1 PG Mean Corpuscular Hemoglobin Concent 33.3 % Red Cell Distribution Width 17.0 % Platelet Count 228 TH/MM3 Mean Platelet Volume 9.1 FL Neutrophils (%) (Auto) 63.7 % Lymphocytes (%) (Auto) 21.5 % Monocytes (%) (Auto) 9.1 % Eosinophils (%) (Auto) 4.3 % Basophils (%) (Auto) 1.4 % Neutrophils # (Auto) 5.0 TH/MM3 Lymphocytes # (Auto) 1.7 TH/MM3 Monocytes # (Auto) 0.7 TH/MM3 Eosinophils # (Auto) 0.3 TH/MM3 Basophils # (Auto) 0.1 TH/MM3 CBC Comment DIFF FINAL Differential Comment Blood Urea Nitrogen 18 MG/DL Creatinine 0.48 MG/DL Random Glucose 122 MG/DL Calcium Level 8.2 MG/DL Sodium Level 140 MEQ/L Potassium Level 4.4 MEQ/L Chloride Level 106 MEQ/L Carbon Dioxide Level 27.6 MEQ/L Anion Gap 6 MEQ/L Estimat Glomerular Filtration Rate 182 ML/MIN Objective Remarks GENERAL: Awake and alert, oriented, appears in nad. SKIN: All toes with digital ischemia, left 2nd finger and right ringer finger with distal digit ischemia. Stage 1-2 decubitus ulcer NECK: Bandage noted at neck in covering trach site c/d/i. CARDIOVASCULAR: Regular rate and rhythm. RESPIRATORY: No accessory muscle use. Clear to auscultation. Breath sounds equal bilaterally. GASTROINTESTINAL: Abdomen soft, non-tender, nondistended. Soft PEG in place, site c/d/i MUSCULOSKELETAL: Extremities without clubbing, cyanosis. NEUROLOGICAL: Alert and oriented x3, pleasant. Speech IS soft with short sentences. Medications and IVs Current Medications Medications (Trade) Dose Ordered Sig/Adali Route Start Time Stop Time Status Last Admin (Heparin Inj) 5,000 units Q8HR SQ 10/14/16 22:00 Future Hold 11/13/16 21:20 (Tears Naturale Opth Soln) 1 drop TID EACH EYE 10/19/16 13:00 01/06/17 17:33 (Albuterol Neb) 2.5 mg Q2HR NEB PRN INH 10/19/16 09:45 11/22/16 22:09 Miscellaneous Information 1 Q361D XX 10/19/16 09:45 (Chlorhexidine 2% Cloth) Taper DAILY@04 TOP 10/20/16 04:00 10/16/17 03:59 12/24/16 04:00 (Chlorhexidine 2% Cloth) 3 pack UNSCH PRN TOP 10/19/16 09:45 (Melatonin) 5 mg HS PO 11/01/16 21:00 01/09/17 22:11 (Cardizem) 90 mg Q6HR PO 11/02/16 12:00 01/10/17 05:22 (Baciguent Oint) 1 applic Q12HR TOPICAL 11/18/16 11:00 01/09/17 22:12 (Beneprotein Powder) 1 pack TID G-TUBE 11/19/16 09:00 01/09/17 17:21 (Peridex 0.12% Liq) 15 ml BID@08,20 MT 11/26/16 20:00 01/09/17 09:19 (Santyl Oint) 1 applic DAILY TOPICAL 11/30/16 12:00 01/08/17 07:41 (Racepinephrine 2.25% Neb) 0.5 ml Q4HR NEB PRN NEB 12/03/16 15:00 (Nitroglycerin 2% Oint) 2 inch Q6H PRN TOPICAL 12/04/16 09:15 (Catapres) 0.1 mg Q8H PO 12/04/16 10:00 01/10/17 01:22 (Vasotec Inj) 1.25 mg Q6H PRN IV PUSH 12/04/16 09:15 (NS Flush) DAILY IV FLUSH 12/04/16 18:00 01/09/17 09:19 (NS Flush) UNSCH PRN IV FLUSH 12/04/16 18:00 (Imodium Liq) 2 mg UNSCH PRN PO 12/14/16 10:45 (Lactinex) 1 tab TID PO 12/14/16 18:00 01/09/17 17:20 (Pepcid) 20 mg BID PO 12/16/16 21:00 01/09/17 22:11 (Ferrous Sulfate) 325 mg BID@ PO 12/22/16 12:00 01/09/17 17:20 (Vitamin C) 500 mg BID PO 12/22/16 09:00 01/09/17 22:11 Potassium Chloride/Sodium Chloride 1,000 ml @ 100 mls/hr Q10H IV 12/27/16 11:17 01/09/17 23:47 (NS Flush) 2 ml UNSCH PRN IVF 12/27/16 11:30 (NS Flush) 2 ml BID IVF 12/27/16 21:00 01/09/17 09:00 (Dulcolax Supp) 10 mg DAILY PRN RECTAL 12/27/16 11:30 (Colace) 100 mg BID PO 12/27/16 21:00 01/09/17 22:11 (Protonix) 40 mg DAILY PO 12/28/16 09:00 01/09/17 09:07 (Protonix Inj) 40 mg DAILY IVP 12/28/16 09:00 01/08/17 07:39 (Zofran Inj) 4 mg Q6H PRN IV PUSH 12/27/16 11:30 Potassium Chloride 100 ml @ 50 mls/hr UNSCH PRN IV 12/27/16 11:30 Magnesium Sulfate 4 gm/Sodium Chloride 108 ml @ 108 mls/hr UNSCH PRN IV 12/27/16 11:30 ([place] 10-325 Mg) 1 tab Q4H PRN PO 12/27/16 11:30 12/30/16 05:54 ([place] 10-325 Mg) 2 tab Q4H PRN PO 12/27/16 11:30 12/30/16 14:24 (Morphine Inj) 2 mg Q2H PRN IV PUSH 12/27/16 11:30 12/29/16 15:05 (Morphine Inj) 4 mg Q2H PRN IV PUSH 12/27/16 11:30 12/28/16 18:00 (Tylenol) 650 mg Q4H PRN PO 12/27/16 11:30 Calcium Gluconate 1 gm/Sodium Chloride 110 ml @ 110 mls/hr UNSCH PRN IV 12/27/16 12:00 (Keppra Liq) 500 mg Q12HR PEG 12/27/16 21:00 01/09/17 22:10 (Bacitracin Oint Packet) 0.9 gm DAILY TOPICAL 12/30/16 18:31 01/09/17 09:22 A/P Assessment and Plan 56-year-old male presents with intracranial bleed, was transferred from [facility]. 1. Subdural Hematoma/duraplasty status post left frontotemporal parietal craniotomy 10/08. 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 Initiated . - Continue Levetiracetam 500 mg per tube q12h. - 10/13 and 10/14 and 10/17) 10/19 left MCA territory vasospasm, status post successful verapamil treatment by IR with 20 mg verapamil - 10/17 CT brain - less hemisphere edema with herniation through left craniotomy site, improved. - Dr. Perry/neurosurgery. S/p left cranioplasty/bone flap 12/27/16. - Echocardiogram 10/14/16 revealed EF 40-45%. Septal hypokinesis. Moderate MR. Severe pulmonary hypertension with pulmonary artery pressures estimated 61 mmHg Limited Echo 11/06: LVEF 60-65%, Trivial mitral and tricuspid regurgitation, No vegetations noted. - On diltiazem's 90 mg by mouth every 6 hours and furosemide 20 mg daily. Monitor BP and if low hold meds. - neurologically stable and doing well, and continued PT and rehabilitation. - PT, OT, speech following. Patient had helmet. -Eating better. Will have dietitian for calorie count and will evaluate if we can remove feeding tube as patient it seems has adequate PO intake. Bilateral Respiratory failure, S/P tracheostomy. Resolved now satting well on Room air. Monitor O2 sat, O2 supplement to keep O2 sat > 94 - S/p Trach Dr. Sullivan/Dr. Collazo 11/01 #8 [place] - CT angiogram chest/neck revealed right centrilobular bleeding likely source right bronchial artery. Repeat CT chest 11/29no visualization of active bleeding.- Resolved - 12/01 - embolization of right bronchial artery by IR- no further bleeding from tracheostomy - Redo trach 11/[address] Sullivan; down sized to uncuffed fenestrated 6 tracheostomy on 12/14 and now capped. - Albuterol/ipratropium aerosols every 6 hours with albuterol aerosols - Dr. Wilson plan is to downsize tube and probably considering tracheostomy removal - Tolerated tracheostomy capping. Has been decannulated. Tolerating room air. Now satting well on Room air, trach removed, trach site wound cultures pending, added bacitracin and wound care consulted for trach site wound. - Monitor Respiratory status Lower extremity edema improved. Ultrasound Doppler reviewed and no DVT. Patient with high risk of bleeding and is not chemoprophylaxis at this time. Continue SCDs and teds for DVT prophylaxis. Ileus- Resolved Elevated transaminases Hyperammonemia Severe protein caloric malnutrition- continue with tube feeds as tolerated. - Currently on Glucerna 1.5 goal 60 cc an hour. Consult tire fixer to review formula. - free water per G tube 200mL per tube q6h. - Lansoprazole 30 mg by tube daily for GI prophylaxis will change this to Pepcid - Continue bowel regimen - Reglan DC 12/13- stools amount decreased and thicker in consistency- continue to monitor - Continue PEG feeding. s/p PEG 11/12/16 - speech following for swallowing progress - Tube feeds only at night, patient has regular trach during the daytime, will order ensure pudding - Dietitian consulted to reevaluate tube feeding rate. Right occlusive subclavian, axillary and bilateral superficial cephalic thrombus - limited Echo to evaluate vegetation-neg. ID following - Digital Ischemia with necrosis involving all toes and left 2nd finger and right ringer finger- stable, conservative management - Digits have demarcated, allow auto amputation. Cardizem PO currently and 90 mg every 6 hours (for digital ischemia, Raynaud's) - Continue bacitracin twice a day to affected areas - Central line for IV access. We'll need to be started on systemic anticoagulation at some point however with recent embolization for hemoptysis holding full anticoagulation at this time. - Consult vascular surgeon . Seen by Dr Valente plan for CTA Ao runoff Stage 2 sacral ulcer - ABD dressing with [employer]- staff nurse makes sure to keep area dry. Wound care also consulted. appreciate recommendations. - Turn position every 2 hours - Out of bed to chair activity Course of hospitalization complications Acute hypoxic Respiratory failure secondary to mucous plugging- Resolved Possible healthcare associated pneumonia, Septic Shock- resolved. ARDS - resolved Noncardiogenic/neurogenic pulmonary edema- resolved. Massive Hemoptysis - resolved Aspiration pneumonitis - resolved Cerebral Salt Wasting/SIADH-resolved now hypernatremic - Creatinine currently within normal limits -> resolved. - Monitor urine output Septic and cardiogenic shock- resolved. LV dysfunction secondary to SAH - persistent, now resolved Elevated troponin- secondary to SAH, unlikely to be ACS. - resolved. Pulmonary hypertension s/p PEA arrest 11/28 after ETT dislodgement, hypoxic arrest DVT prop SCD, no chemoprophylaxis secondary to risk for bleeding. No changes to anterior assessment Discussed with patient and his Mrs. Jessica Johansen all questions answered to the best of my abilities. Discharge Planning S/p left cranioplasty by Dr Perry neurosurgery on 12/27/16. He is fairly stable for DC when arrangements done. Pending SSI. Placement will be in longterm facility or long-term care. CM following for DC plan. Eating better. Will have dietitian for calorie count and will evaluate if we can remove feeding tube as patient it seems has adequate PO intake. Brayden Candelario MD Jan 10, 2017 09:17
[2017-01-10] MEDS: COLLAGENASE OINT 30 GM TUBE TOPICAL SCH (09:23)
[2017-01-10] MEDS: BACITRACIN TOP OINT 15 GM TUBE TOPICAL SCH ×2 (09:36→21:30)
[2017-01-10 12:00] VITALS: BP 92/60; PULSE 78; RESP 18; TEMP 97.5; O2SAT 100
[2017-01-10] MEDS: FERROUS SULFATE 325 MG (65 MG ELEMENTAL IRON) TAB PO SCH ×2 (13:07→18:29)
[2017-01-10] MEDS: NS + KCL 20 MEQ INJ 1,000 ML IV SCH (13:32)
[2017-01-10 16:00] VITALS: BP 97/57; PULSE 71; RESP 18; TEMP 98.3; O2SAT 98
[2017-01-10 20:57] VITALS: BP 104/61; PULSE 78; RESP 20; TEMP 98.6; O2SAT 97
[2017-01-10] MEDS: MELATONIN 5 MG TAB PO SCH (21:30)
[2017-01-11] VITALS: BP 109/67; PULSE 75; RESP 20; TEMP 98.5; O2SAT 97
[2017-01-11] MEDS: NS + KCL 20 MEQ INJ 1,000 ML IV SCH ×3 (00:33→21:35)
[2017-01-11 04:00] VITALS: BP 114/66; PULSE 78; RESP 20; TEMP 97.8; O2SAT 98
[2017-01-11] MEDS: CHLORHEXIDINE GLUCONATE 2 % 1 PACK (2 CLOTHS) TOP SCH (04:00)
[2017-01-11] MEDS: DILTIAZEM HCL 90 MG TAB PO SCH ×4 (05:31→17:09)
[2017-01-11 05:55] LABS: BASOPHIL # 0.1 TH/MM3 (0-0.2); BASOPHIL % 1.4 % (0.0-2.0); EOSINOPHIL # 0.4 TH/MM3 (0-0.4); EOSINOPHIL % 5.6 % (0.0-4.0); HEMATOCRIT 27.5 % (39.0-51.0); HEMO FLAGS DIFF FINAL; LYMPHOCYTE # 3.2 TH/MM3 (1.0-4.8); MEAN CELL VOLUME 93.8 FL (80.0-100.0); MEAN CORPUSCULAR HEMOGLOBIN 31.4 PG (27.0-34.0); MEAN CORPUSCULAR HGB CONC 33.5 % (32.0-36.0); MONO % 7.8 % (0.0-8.0); NEUT % 41.2 % (16.0-70.0); PLATELET COUNT 239 TH/MM3 (150-450); RED BLOOD COUNT 2.93 MIL/MM3 (4.50-5.90); RED CELL DISTRIBUTION WIDTH 16.8 % (11.6-17.2); WHITE BLOOD COUNT 7.4 TH/MM3 (4.0-11.0)
[2017-01-11 06:23] LABS: BICARBONATE 25.2 MEQ/L (21.0-32.0); MAGNESIUM 1.8 MG/DL (1.5-2.5); POTASSIUM 4.7 MEQ/L (3.5-5.1)
[2017-01-11] MEDS: CHLORHEXIDINE 0.12% (ORAL KIT) 15 ML CUP MT SCH ×2 (08:00→20:00)
--- NOTE | 2017-01-11 08:16 | HHI.PR ---
Subjective Remarks Seen in his bedroom eating no complaint, no nausea, vomit or diarrhea Objective Vital Signs Date Time Temp Pulse Resp B/P (MAP) Pulse Ox O2 Delivery O2 Flow Rate FiO2 01/11/17 04:00 97.8 78 20 114/66 (82) 98 01/11/17 00:00 98.5 75 20 109/67 (81) 97 01/10/17 20:57 98.6 78 20 104/61 (75) 97 01/10/17 16:00 98.3 71 18 97/57 (70) 98 01/10/17 12:00 97.5 78 18 92/60 (71) 100 I/O 01/10/17 01/10/17 01/10/17 01/11/17 01/11/17 01/11/17 07:00 15:00 23:00 07:00 15:00 23:00 Intake Total 800 ml 1049 ml Output Total 350 ml 120 ml 1 ml Balance -350 ml -120 ml 800 ml 1048 ml Intake Oral 120 ml IV Total 800 ml 343 ml Tube Feeding 586 ml Output Urine Total 350 ml 120 ml Stool Total 1 ml # Voids 5 # Bowel Movements 2 Result Diagram: 01/11/17 0507 01/11/17 0507 Imaging Last Impressions Lower Extremity Ultrasound 12/29/16 0000 Signed Impressions: Service Date/Time: December 13:07 - CONCLUSION: No sonographic or Doppler findings of deep venous thrombosis. Joni Shelton MD Carotid Artery Ultrasound 12/27/16 0000 Signed Impressions: Service Date/Time: Tuesday, December 27, 2016 17:19 - CONCLUSION: Mild plaque at the carotid bulb regions bilaterally without a significant stenosis seen. Yosvany Alfaro MD Aorta w/Runoff CTA 12/27/16 0000 Signed Impressions: Service Date/Time: Wednesday, December 28, 2016 17:28 - CONCLUSION: Atherosclerotic calcification seen throughout the arterial system without an area of significant stenosis. The trifurcation vessels are only faintly opacified. Yosvany Alfaro MD Modified Barium Swallow 12/23/16 0000 Signed Impressions: Service Date/Time: Friday, December 23, 2016 09:11 - CONCLUSION: Negative for aspiration.. Remington Woodward MD FACR Chest X-Ray 12/04/16 1444 Signed Impressions: Service Date/Time: Sunday, December 04, 2016 18:55 - CONCLUSION: 1. Placement of left central line tip in superior vena cava. No pneumothorax. Mild basilar airspace disease. Small right effusion. Gurwinder Root MD Upper Extremity Ultrasound 12/04/16 0000 Signed Impressions: Service Date/Time: Sunday, December 04, 2016 15:37 - CONCLUSION: 1. Positive for occlusive deep venous thrombosis in the right axillary and subclavian vein. Occlusive superficial thrombus in bilateral cephalic veins. Gurwinder Root MD Angiography 12/01/16 0000 Signed Impressions: Service Date/Time: November 14:02 - CONCLUSION: 1. Right side up on her hemorrhage with angiography of the right bronchial artery revealing no source of active hemorrhage. Empiric embolization was performed. Santos Crockett Jr., MD Chest CT 11/28/16 0000 Signed Impressions: Service Date/Time: Tuesday, November 29, 2016 05:13 - CONCLUSION: 1. Patchy alveolar disease characteristic of edema or pneumonia. 2. Severe emphysema 3. Gastrojejunostomy tube looped in the stomach Harvey Morejon MD Chest/Thorax CTA 11/26/16 Signed Impressions: Service Date/Time: Saturday, November 26, 2016 20:18 - CONCLUSION: 1. Extensive filling defects within the right central bronchial tree characteristic of endobronchial hemorrhage. 2. Consolidating airspace disease in the right upper lobe and right lower lobe characteristic of hemorrhage and post obstructive lung consolidation. 3. Right bronchial artery is identified extending to the central right bronchial region 4. Advanced COPD. Nasir Amanda MD Abdomen X-Ray 11/19/16599 Signed Impressions: Service Date/Time: Saturday, November 19, 2016 02:44 - CONCLUSION: Unchanged bowel gas pattern potentially relating to an ileus. Santos Crockett Jr., MD Transcranial Doppler Study Complete 10/20/16599 Signed Impressions: Service Date/Time: October 07:54 - CONCLUSION: Slight interval elevation of flow velocity measurements and ratio on the left Yosvany Polk MD Liver Ultrasound 10/19/16 Signed Impressions: Service Date/Time: Wednesday, October 19, 2016 11:20 - CONCLUSION: 1. Sludge filled gallbladder with thickened wall. 2. Moderate size bilateral pleural effusions and mild upper abdominal ascites. Santos Vazquez MD Cerebral Arteriogram 10/19/16 0000 Signed Impressions: Service Date/Time: Wednesday, October 19, 2016 12:47 - CONCLUSION: Uncomplicated cerebral arteriography with spasmolytic therapy as described in detail above. Yosvany Polk MD Head CT 10/17/16 0000 Signed Impressions: Service Date/Time: Monday, October 17, 2016 15:06 - CONCLUSION: Ventricles are slightly larger without ventriculostomy. Edema in the left hemisphere the brain herniating through the operative site. Remington Woodward MD FACR Infusion Non-thrombolysis 10/14/16 1103 Signed Impressions: Service Date/Time: Friday, October 14, 2016 10:21 - CONCLUSION: 1. Uncomplicated infusion for spasmolysis Harvey Morejon MD Neck CTA 10/07/16 0000 Signed Impressions: Service Date/Time: Friday, October 07, 2016 15:03 - CONCLUSION: 1. Mild carotid bulb atherosclerotic calcification bilaterally. However, no significant stenosis is present in either internal carotid artery. 2. Paranasal sinus mucoperiosteal thickening. 3. Please refer to brain CTA report for description of the intracranial findings. Yosvany Ramirez MD Head CTA 10/07/16 0000 Signed Impressions: Service Date/Time: Friday, October 07, 2016 15:03 - CONCLUSION: 1. 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 2. Large left subdural hematoma measuring 1.3 cm in depth with a significant, 1.6 cm left to right subfalcine shift. Joni Shelton MD Procedures 10/13 Four-vessel cerebral angiography with verapamil treatment of vasospasm Status post left frontotemporal parietal craniectomy 10/08 for evacuation subdural hematoma/duraplasty. 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 parietal cranioplasty with replacement of skull flap by Dr Perry neurosurgery on 12/27/16 Other Results Laboratory Tests Test 10/11/16 23:50 10/14/16 10:00 10/15/16 02:10 10/15/16 03:40 Nasal Screen MRSA (PCR) MRSA NOT DETECTED Urine Osmolality 409 MOSM/KG Serum Osmolality 279 MOSM/KG Procalcitonin 6.86 ng/mL Random Cortisol 35.0 MCG/DL Test 10/16/16 01:07 10/18/16 05:45 10/19/16 00:00 10/19/16 12:00 Troponin I 2.47 NG/ML Protein Corrected Calcium 7.9 MG/DL Total Creatine Kinase 1073 U/L Creatine Kinase MB 14.1 NG/ML Creatine Kinase MB % 1.3 % Thyroid Stimulating Hormone 3rd Gen 0.256 uIU/ML Urine Amorphous Sediment RARE Urine Random Sodium 49 MEQ/L Test 10/20/16 10:40 10/20/16 13:00 10/21/16 04:20 10/21/16 14:30 Phenytoin (Dilantin) Level 6.0 MCG/ML Blood Urea Nitrogen 19 MG/DL Creatinine 0.53 MG/DL Random Glucose 214 MG/DL Total Protein 5.9 GM/DL Albumin 1.5 GM/DL Calcium Level 7.6 MG/DL Phosphorus Level 0.9 MG/DL Magnesium Level 2.2 MG/DL Alkaline Phosphatase 137 U/L Aspartate Amino Transf (AST/SGOT) 112 U/L Alanine Aminotransferase (ALT/SGPT) 195 U/L Total Bilirubin 0.4 MG/DL Direct Bilirubin 0.2 MG/DL Sodium Level 146 MEQ/L Potassium Level 2.7 MEQ/L Chloride Level 111 MEQ/L Carbon Dioxide Level 28.3 MEQ/L Indirect Bilirubin 0.2 MG/DL Lactic Acid Level 1.4 mmol/L Amylase Level 29 U/L Lipase 76 U/L Free Thyroxine 0.70 NG/DL Free Triiodothyronine (T3) pg/dL 0.90 PG/ML Test 10/31/16 05:08 11/02/16 18:00 11/04/16 01:40 11/04/16 05:00 B-Type Natriuretic Peptide 765 PG/ML Stool C. difficile Toxin (PCR) NEGATIVE Stl C. difficile Toxin Epiderm 027 PRESUMPTIVE NEGATIVE Vancomycin Level Trough 25.2 MCG/ML Ammonia 37 MCMOL/L Test 11/05/16 15:00 11/14/16 11:40 11/20/16 05:17 11/22/16 05:24 Random Vancomycin Level 7.1 COMMENT Urine Color YELLOW Urine Turbidity CLEAR Urine pH 5.5 Urine Specific [place] 1.027 Urine Protein 30 mg/dL Urine Glucose (UA) NEG mg/dL Urine Ketones NEG mg/dL Urine Occult Blood SMALL Urine Nitrite NEG Urine Bilirubin NEG Urine Urobilinogen LESS THAN 2.0 MG/DL Urine Leukocyte Esterase NEG Urine RBC 8 /hpf Urine WBC 4 /hpf Urine Squamous Epithelial Cells 3 /hpf Urine Calcium Oxalate Crystals RARE /hpf Urine Bacteria RARE /hpf Urine Hyaline Casts 1 /lpf Urine Mucus FEW /lpf Microscopic Urinalysis Comment CULT NOT INDICATED Hematology Comments Platelet Estimate HIGH Platelet Morphology Comment NORMAL Red Cell Morphology Comment NORMAL Test 11/25/16 08:17 11/26/16 16:50 11/28/16 23:05 12/01/16 13:48 Differential Total Cells Counted 100 Neutrophils % (Manual) 75 % Band Neutrophils % 10 % Lymphocytes % 8 % Monocytes % 6 % Basophils % 1 % Neutrophils # (Manual) 9.9 TH/MM3 Toxic Granulation 1+ Fibrinogen 382 mg/dL Blood Gas Puncture Site RT RADIAL Blood Gas Patient Temperature 98.6 Blood Gas HCO3 29 mmol/L Blood Gas Base Excess 4.2 mmol/L Blood Gas Oxygen Saturation 84 % Arterial Blood pH 7.36 Arterial Blood Partial Pressure CO2 53 mmHg Arterial Blood Partial Pressure O2 56 mmHg Arterial Blood Oxygen Content 9.5 Vol % Arterial Blood Carboxyhemoglobin 2.0 % Arterial Blood Methemoglobin 0.9 % Blood Gas Hemoglobin 8.0 G/DL Oxygen Delivery Device VENT Blood Gas Ventilator Setting SEE COMMENTS Blood Gas Inspired Oxygen 60 % Prothrombin Time 11.1 SEC Prothromb Time International Ratio 1.0 RATIO Activated Partial Thromboplast Time 28.3 SEC Test 12/02/16 04:32 12/14/16 15:00 12/22/16 05:25 01/11/17 05:07 Blood Urea Nitrogen 13 MG/DL 32 MG/DL Creatinine 0.28 MG/DL 0.54 MG/DL Random Glucose 116 MG/DL 88 MG/DL Total Protein 5.0 GM/DL Albumin 1.4 GM/DL Calcium Level 7.7 MG/DL 8.9 MG/DL Phosphorus Level 3.1 MG/DL 4.0 MG/DL Magnesium Level 1.9 MG/DL 1.8 MG/DL Alkaline Phosphatase 70 U/L Aspartate Amino Transf (AST/SGOT) LESS THAN 3 U/L Alanine Aminotransferase (ALT/SGPT) 12 U/L Total Bilirubin 0.4 MG/DL Sodium Level 135 MEQ/L 138 MEQ/L Potassium Level 3.7 MEQ/L 4.7 MEQ/L Chloride Level 101 MEQ/L 106 MEQ/L Carbon Dioxide Level 26.1 MEQ/L 25.2 MEQ/L Prealbumin 19 MG/DL Iron Level 51 MCG/DL Total Iron Binding Capacity 223 MCG/DL Percent Iron Saturation 22.9 % White Blood Count 7.4 TH/MM3 Red Blood Count 2.93 MIL/MM3 Hemoglobin 9.2 GM/DL Hematocrit 27.5 % Mean Corpuscular Volume 93.8 FL Mean Corpuscular Hemoglobin 31.4 PG Mean Corpuscular Hemoglobin Concent 33.5 % Red Cell Distribution Width 16.8 % Platelet Count 239 TH/MM3 Mean Platelet Volume 9.4 FL Neutrophils (%) (Auto) 41.2 % Lymphocytes (%) (Auto) 44.0 % Monocytes (%) (Auto) 7.8 % Eosinophils (%) (Auto) 5.6 % Basophils (%) (Auto) 1.4 % Neutrophils # (Auto) 3.0 TH/MM3 Lymphocytes # (Auto) 3.2 TH/MM3 Monocytes # (Auto) 0.6 TH/MM3 Eosinophils # (Auto) 0.4 TH/MM3 Basophils # (Auto) 0.1 TH/MM3 CBC Comment DIFF FINAL Differential Comment Anion Gap 7 MEQ/L Estimat Glomerular Filtration Rate 159 ML/MIN Objective Remarks GENERAL: Awake and alert, oriented, no acute distress. SKIN: All toes with digital ischemia, left 2nd finger and right ringer finger with distal digit ischemia. Stage 1-2 decubitus ulcer NECK: Bandage noted at neck in covering trach site c/d/i. CARDIOVASCULAR: Regular rate and rhythm. RESPIRATORY: No accessory muscle use. Clear to auscultation. Breath sounds equal bilaterally. GASTROINTESTINAL: Abdomen soft, non-tender, nondistended. Soft PEG in place, site c/d/i MUSCULOSKELETAL: Extremities without clubbing, cyanosis. NEUROLOGICAL: Alert and oriented x3, pleasant. Speech IS soft with short sentences. Medications and IVs Current Medications Medications (Trade) Dose Ordered Sig/Adali Route Start Time Stop Time Status Last Admin (Heparin Inj) 5,000 units Q8HR SQ 10/14/16 22:00 Future Hold 11/13/16 21:20 (Tears Naturale Opth Soln) 1 drop TID EACH EYE 10/19/16 13:00 01/10/17 18:30 (Albuterol Neb) 2.5 mg Q2HR NEB PRN INH 10/19/16 09:45 11/22/16 22:09 Miscellaneous Information 1 Q361D XX 10/19/16 09:45 (Chlorhexidine 2% Cloth) Taper DAILY@04 TOP 10/20/16 04:00 10/16/17 03:59 12/24/16 04:00 (Chlorhexidine 2% Cloth) 3 pack UNSCH PRN TOP 10/19/16 09:45 (Melatonin) 5 mg HS PO 11/01/16 21:00 01/10/17 21:30 (Cardizem) 90 mg Q6HR PO 11/02/16 12:00 01/11/17 05:31 (Baciguent Oint) 1 applic Q12HR TOPICAL 11/18/16 11:00 01/10/17 21:30 (Beneprotein Powder) 1 pack TID G-TUBE 11/19/16 09:00 01/10/17 18:00 (Peridex 0.12% Liq) 15 ml BID@08,20 MT 11/26/16 20:00 01/09/17 09:19 (Santyl Oint) 1 applic DAILY TOPICAL 11/30/16 12:00 01/10/17 09:23 (Racepinephrine 2.25% Neb) 0.5 ml Q4HR NEB PRN NEB 12/03/16 15:00 (Nitroglycerin 2% Oint) 2 inch Q6H PRN TOPICAL 12/04/16 09:15 (Vasotec Inj) 1.25 mg Q6H PRN IV PUSH 12/04/16 09:15 (NS Flush) DAILY IV FLUSH 12/04/16 18:00 01/09/17 09:19 (NS Flush) UNSCH PRN IV FLUSH 12/04/16 18:00 (Imodium Liq) 2 mg UNSCH PRN PO 12/14/16 10:45 (Lactinex) 1 tab TID PO 12/14/16 18:00 01/10/17 18:30 (Pepcid) 20 mg BID PO 12/16/16 21:00 01/10/17 21:30 (Ferrous Sulfate) 325 mg BID@ PO 12/22/16 12:00 01/10/17 18:29 (Vitamin C) 500 mg BID PO 12/22/16 09:00 01/10/17 21:30 Potassium Chloride/Sodium Chloride 1,000 ml @ 100 mls/hr Q10H IV 12/27/16 11:17 01/11/17 00:33 (NS Flush) 2 ml UNSCH PRN IVF 12/27/16 11:30 (NS Flush) 2 ml BID IVF 12/27/16 21:00 01/10/17 21:32 (Dulcolax Supp) 10 mg DAILY PRN RECTAL 12/27/16 11:30 (Colace) 100 mg BID PO 12/27/16 21:00 01/10/17 21:30 (Protonix) 40 mg DAILY PO 12/28/16 09:00 01/10/17 09:16 (Protonix Inj) 40 mg DAILY IVP 12/28/16 09:00 01/08/17 07:39 (Zofran Inj) 4 mg Q6H PRN IV PUSH 12/27/16 11:30 ([place] 10-325 Mg) 1 tab Q4H PRN PO 12/27/16 11:30 12/30/16 05:54 ([place] 10-325 Mg) 2 tab Q4H PRN PO 12/27/16 11:30 12/30/16 14:24 (Morphine Inj) 2 mg Q2H PRN IV PUSH 12/27/16 11:30 12/29/16 15:05 (Morphine Inj) 4 mg Q2H PRN IV PUSH 12/27/16 11:30 12/28/16 18:00 (Tylenol) 650 mg Q4H PRN PO 12/27/16 11:30 (Keppra Liq) 500 mg Q12HR PEG 12/27/16 21:00 01/10/17 21:30 (Bacitracin Oint Packet) 0.9 gm DAILY TOPICAL 12/30/16 18:31 01/10/17 09:00 A/P Assessment and Plan 56-year-old male presents with intracranial bleed, was transferred from [facility]. 1. Subdural Hematoma/duraplasty status post left frontotemporal parietal craniotomy 10/08. 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 Initiated . - Continue Levetiracetam 500 mg per tube q12h. - 10/13 and 10/14 and 10/17) 10/19 left MCA territory vasospasm, status post successful verapamil treatment by IR with 20 mg verapamil - 10/17 CT brain - less hemisphere edema with herniation through left craniotomy site, improved. - Dr. Perry/neurosurgery. S/p left cranioplasty/bone flap 12/27/16. - Echocardiogram 10/14/16 revealed EF 40-45%. Septal hypokinesis. Moderate MR. Severe pulmonary hypertension with pulmonary artery pressures estimated 61 mmHg Limited Echo 11/06: LVEF 60-65%, Trivial mitral and tricuspid regurgitation, No vegetations noted. - On diltiazem's 90 mg by mouth every 6 hours and furosemide 20 mg daily. Monitor BP and if low hold meds. - neurologically stable and doing well, and continued PT and rehabilitation. - PT, OT, speech following. Patient had helmet. -Eating better. Will have dietitian for calorie count and will evaluate if we can remove feeding tube as patient it seems has adequate PO intake. Bilateral Respiratory failure, S/P tracheostomy. Resolved now satting well on Room air. Monitor O2 sat, O2 supplement to keep O2 sat > 94 - S/p Trach Dr. Sullivan/Dr. Collazo 11/01 #8 [place] - CT angiogram chest/neck revealed right centrilobular bleeding likely source right bronchial artery. Repeat CT chest 11/29no visualization of active bleeding.- Resolved - 12/01 - embolization of right bronchial artery by IR- no further bleeding from tracheostomy - Redo trach 11/[address] Sullivan; down sized to uncuffed fenestrated 6 tracheostomy on 12/14 and now capped. - Albuterol/ipratropium aerosols every 6 hours with albuterol aerosols - Dr. Wilson plan is to downsize tube and probably considering tracheostomy removal - Tolerated tracheostomy capping. Has been decannulated. Tolerating room air. Now satting well on Room air, trach removed, trach site wound cultures pending, added bacitracin and wound care consulted for trach site wound. - Monitor Respiratory status Lower extremity edema improved. Ultrasound Doppler reviewed and no DVT. Patient with high risk of bleeding and is not chemoprophylaxis at this time. Continue SCDs and teds for DVT prophylaxis. Ileus- Resolved Elevated transaminases Hyperammonemia Severe protein caloric malnutrition- continue with tube feeds as tolerated. - Currently on Glucerna 1.5 goal 60 cc an hour. Consult guard supervisor to review formula. - free water per G tube 200mL per tube q6h. - Lansoprazole 30 mg by tube daily for GI prophylaxis will change this to Pepcid - Continue bowel regimen - Reglan DC 12/13- stools amount decreased and thicker in consistency- continue to monitor - Continue PEG feeding. s/p PEG 11/12/16 - speech following for swallowing progress - Tube feeds only at night, patient has regular trach during the daytime, will order ensure pudding - Dietitian consulted to reevaluate tube feeding rate. Right occlusive subclavian, axillary and bilateral superficial cephalic thrombus - limited Echo to evaluate vegetation-neg. ID following - Digital Ischemia with necrosis involving all toes and left 2nd finger and right ringer finger- stable, conservative management - Digits have demarcated, allow auto amputation. Cardizem PO currently and 90 mg every 6 hours (for digital ischemia, Raynaud's) - Continue bacitracin twice a day to affected areas - Central line for IV access. We'll need to be started on systemic anticoagulation at some point however with recent embolization for hemoptysis holding full anticoagulation at this time. - Consult vascular surgeon . Seen by Dr Valente plan for CTA Ao runoff Stage 2 sacral ulcer - ABD dressing with [employer]- staff nurse makes sure to keep area dry. Wound care also consulted. appreciate recommendations. - Turn position every 2 hours - Out of bed to chair activity Course of hospitalization complications Acute hypoxic Respiratory failure secondary to mucous plugging- Resolved Possible healthcare associated pneumonia, Septic Shock- resolved. ARDS - resolved Noncardiogenic/neurogenic pulmonary edema- resolved. Massive Hemoptysis - resolved Aspiration pneumonitis - resolved Cerebral Salt Wasting/SIADH-resolved now hypernatremic - Creatinine currently within normal limits -> resolved. - Monitor urine output Septic and cardiogenic shock- resolved. LV dysfunction secondary to SAH - persistent, now resolved Elevated troponin- secondary to SAH, unlikely to be ACS. - resolved. Pulmonary hypertension s/p PEA arrest 11/28 after ETT dislodgement, hypoxic arrest DVT prop SCD, no chemoprophylaxis secondary to risk for bleeding. No changes to anterior assessment Discharge Planning S/p left cranioplasty by Dr Perry neurosurgery on 12/27/16. He is fairly stable for DC when arrangements done. Pending SSI. Placement will be in jail facility or long-term care. CM following for DC plan. Eating better. Will have dietitian for calorie count and will evaluate if we can remove feeding tube as patient it seems has adequate PO intake. Brayden Candelario MD Jan 11, 2017 8:16 am
[2017-01-11] MEDS: SODIUM CHLORIDE 0.9% FLUSH 10 ML FLUSH IV FLUSH SCH (09:00)
[2017-01-11] MEDS: ARTIFICIAL TEARS OPTH SOLN 15 ML BTL EACH EYE SCH ×3 (09:00→17:10)
[2017-01-11] MEDS: SODIUM CHLORIDE 0.9% FLUSH 5 ML FLUSH IVF SCH ×2 (09:00→20:59)
[2017-01-11] MEDS: BACITRACIN TOP OINT 15 GM TUBE TOPICAL SCH ×2 (09:00→20:59)
[2017-01-11] MEDS: BACITRACIN OINT 0.9 GM PKT TOPICAL SCH (09:00)
[2017-01-11] MEDS: BENEPROTEIN POWDER 1 PACK G-TUBE SCH ×3 (09:00→17:11)
[2017-01-11] MEDS: ASCORBIC ACID 500 MG TAB PO SCH ×2 (09:42→20:58)
[2017-01-11] MEDS: DOCUSATE SODIUM 100 MG CAP PO SCH ×2 (09:42→20:58)
[2017-01-11] MEDS: levETIRAcetam 500 MG/5 ML UDC PEG SCH ×2 (09:42→20:57)
[2017-01-11] MEDS: FAMOTIDINE 20 MG TAB PO SCH ×2 (09:43→20:58)
[2017-01-11] MEDS: PANTOPRAZOLE SOD 40 MG DELAYED RELEASE TAB PO SCH (09:43)
[2017-01-11] MEDS: LACTOBACILLUS ACIDOPHILUS TAB PO SCH ×3 (09:43→17:09)
[2017-01-11] MEDS: PANTOPRAZOLE SODIUM 40 MG VIAL IVP SCH (09:43)
[2017-01-11 11:20] VITALS: BP 119/72; PULSE 77; RESP 16; TEMP 98.3; O2SAT 99
[2017-01-11 12:45] VITALS: BP 125/76; PULSE 79; RESP 17; TEMP 98.5; O2SAT 97
[2017-01-11] MEDS: COLLAGENASE OINT 30 GM TUBE TOPICAL SCH (13:00)
[2017-01-11] MEDS: FERROUS SULFATE 325 MG (65 MG ELEMENTAL IRON) TAB PO SCH ×2 (13:14→17:09)
[2017-01-11 18:46] VITALS: BP 125/59; PULSE 81; RESP 17; TEMP 98.3; O2SAT 98
[2017-01-11 20:30] VITALS: BP 115/63; PULSE 75; RESP 17; TEMP 97.8; O2SAT 97
[2017-01-11] MEDS: MELATONIN 5 MG TAB PO SCH (20:59)
[2017-01-12 00:30] VITALS: BP 126/71; PULSE 73; RESP 17; TEMP 97.8; O2SAT 97
[2017-01-12] MEDS: DILTIAZEM HCL 90 MG TAB PO SCH ×4 (00:31→17:46)
[2017-01-12] MEDS: CHLORHEXIDINE GLUCONATE 2 % 1 PACK (2 CLOTHS) TOP SCH (04:00)
[2017-01-12 05:00] VITALS: BP 106/63; PULSE 72; RESP 17; TEMP 97.8; O2SAT 96
[2017-01-12 08:00] VITALS: BP 119/69; PULSE 69; RESP 20; TEMP 98.2; O2SAT 97
--- NOTE | 2017-01-12 08:11 | HHI.PR ---
Subjective Remarks Stable in his bedroom, no nausea, vomit or diarrhea, discussed with nurse Miss Coleman his Potassium drinking and eating fine, discontinued IV fluids with potassium. no other complaint. Objective Vital Signs Date Time Temp Pulse Resp B/P (MAP) Pulse Ox O2 Delivery O2 Flow Rate FiO2 01/12/17 05:00 97.8 72 17 106/63 (77) 96 01/12/17 00:30 97.8 73 17 126/71 (89) 97 01/11/17 20:30 97.8 75 17 115/63 (80) 97 01/11/17 18:46 98.3 81 17 125/59 (81) 98 01/11/17 12:45 98.5 79 17 125/76 (92) 97 01/11/17 11:20 98.3 77 16 119/72 (88) 99 I/O 01/11/17 01/11/17 01/11/17 01/12/17 01/12/17 01/12/17 07:00 15:00 23:00 07:00 15:00 23:00 Intake Total 1049 ml 1960 ml 120 ml Output Total 1 ml 1850 ml 900 ml Balance 1048 ml 110 ml -780 ml Intake Oral 120 ml 960 ml 120 ml IV Total 343 ml 1000 ml Tube Feeding 586 ml Output Urine Total 1850 ml 900 ml Stool Total 1 ml Result Diagram: 01/11/17 0507 01/11/17 0507 Imaging Last Impressions Lower Extremity Ultrasound 12/29/16 0000 Signed Impressions: Service Date/Time: December 13:07 - CONCLUSION: No sonographic or Doppler findings of deep venous thrombosis. Joni Shelton MD Carotid Artery Ultrasound 12/27/16 0000 Signed Impressions: Service Date/Time: Tuesday, December 27, 2016 17:19 - CONCLUSION: Mild plaque at the carotid bulb regions bilaterally without a significant stenosis seen. Yosvany Alfaro MD Aorta w/Runoff CTA 12/27/16 0000 Signed Impressions: Service Date/Time: Wednesday, December 28, 2016 17:28 - CONCLUSION: Atherosclerotic calcification seen throughout the arterial system without an area of significant stenosis. The trifurcation vessels are only faintly opacified. Yosvany Alfaro MD Modified Barium Swallow 12/23/16 0000 Signed Impressions: Service Date/Time: Friday, December 23, 2016 09:11 - CONCLUSION: Negative for aspiration.. Remington Woodward MD FACR Chest X-Ray 12/04/16 5483 Signed Impressions: Service Date/Time: Sunday, December 04, 2016 18:55 - CONCLUSION: 1. Placement of left central line tip in superior vena cava. No pneumothorax. Mild basilar airspace disease. Small right effusion. Gurwinder Root MD Upper Extremity Ultrasound 12/04/16 0000 Signed Impressions: Service Date/Time: Sunday, December 04, 2016 15:37 - CONCLUSION: 1. Positive for occlusive deep venous thrombosis in the right axillary and subclavian vein. Occlusive superficial thrombus in bilateral cephalic veins. Gurwinder Root MD Angiography 12/01/16 0000 Signed Impressions: Service Date/Time: November 14:02 - CONCLUSION: 1. Right side up on her hemorrhage with angiography of the right bronchial artery revealing no source of active hemorrhage. Empiric embolization was performed. Santos Crockett Jr., MD Chest CT 11/28/16 0000 Signed Impressions: Service Date/Time: Tuesday, November 29, 2016 05:13 - CONCLUSION: 1. Patchy alveolar disease characteristic of edema or pneumonia. 2. Severe emphysema 3. Gastrojejunostomy tube looped in the stomach Harvey Morejon MD Chest/Thorax CTA 11/26/16 0000 Signed Impressions: Service Date/Time: Saturday, November 26, 2016 20:18 - CONCLUSION: 1. Extensive filling defects within the right central bronchial tree characteristic of endobronchial hemorrhage. 2. Consolidating airspace disease in the right upper lobe and right lower lobe characteristic of hemorrhage and post obstructive lung consolidation. 3. Right bronchial artery is identified extending to the central right bronchial region 4. Advanced COPD. Nasir Amanda MD Abdomen X-Ray 11/19/16 0600 Signed Impressions: Service Date/Time: Saturday, November 19, 2016 02:44 - CONCLUSION: Unchanged bowel gas pattern potentially relating to an ileus. Santos Crockett Jr., MD Transcranial Doppler Study Complete 10/20/16 0600 Signed Impressions: Service Date/Time: October 07:54 - CONCLUSION: Slight interval elevation of flow velocity measurements and ratio on the left Yosvany Polk MD Liver Ultrasound 10/19/16 0000 Signed Impressions: Service Date/Time: Wednesday, October 19, 2016 11:20 - CONCLUSION: 1. Sludge filled gallbladder with thickened wall. 2. Moderate size bilateral pleural effusions and mild upper abdominal ascites. Santos Vazquez MD Cerebral Arteriogram 10/19/16 0000 Signed Impressions: Service Date/Time: Wednesday, October 19, 2016 12:47 - CONCLUSION: Uncomplicated cerebral arteriography with spasmolytic therapy as described in detail above. Yosavny Polk MD Head CT 10/17/16 0000 Signed Impressions: Service Date/Time: Monday, October 17, 2016 15:06 - CONCLUSION: Ventricles are slightly larger without ventriculostomy. Edema in the left hemisphere the brain herniating through the operative site. Remington Woodward MD FACR Infusion Non-thrombolysis 10/14/16 1103 Signed Impressions: Service Date/Time: Friday, October 14, 2016 10:21 - CONCLUSION: 1. Uncomplicated infusion for spasmolysis Harvey Morejon MD Neck CTA 10/07/16 0000 Signed Impressions: Service Date/Time: Friday, October 07, 2016 15:03 - CONCLUSION: 1. Mild carotid bulb atherosclerotic calcification bilaterally. However, no significant stenosis is present in either internal carotid artery. 2. Paranasal sinus mucoperiosteal thickening. 3. Please refer to brain CTA report for description of the intracranial findings. Yosvany Ramirez MD Head CTA 10/07/16 0000 Signed Impressions: Service Date/Time: Friday, October 07, 2016 15:03 - CONCLUSION: 1. 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 2. Large left subdural hematoma measuring 1.3 cm in depth with a significant, 1.6 cm left to right subfalcine shift. Joni Shelton MD Procedures 10/13 Four-vessel cerebral angiography with verapamil treatment of vasospasm Status post left frontotemporal parietal craniectomy 10/08 for evacuation subdural hematoma/duraplasty. 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 parietal cranioplasty with replacement of skull flap by Dr Perry neurosurgery on 12/27/16 Other Results Laboratory Tests Test 10/11/16 23:50 10/14/16 10:00 10/15/16 02:10 10/15/16 03:40 Nasal Screen MRSA (PCR) MRSA NOT DETECTED Urine Osmolality 409 MOSM/KG Serum Osmolality 279 MOSM/KG Procalcitonin 6.86 ng/mL Random Cortisol 35.0 MCG/DL Test 10/16/16 01:07 10/18/16 05:45 10/19/16 00:00 10/19/16 12:00 Troponin I 2.47 NG/ML Protein Corrected Calcium 7.9 MG/DL Total Creatine Kinase 1073 U/L Creatine Kinase MB 14.1 NG/ML Creatine Kinase MB % 1.3 % Thyroid Stimulating Hormone 3rd Gen 0.256 uIU/ML Urine Amorphous Sediment RARE Urine Random Sodium 49 MEQ/L Test 10/20/16 10:40 10/20/16 13:00 10/21/16 04:20 10/21/16 14:30 Phenytoin (Dilantin) Level 6.0 MCG/ML Blood Urea Nitrogen 19 MG/DL Creatinine 0.53 MG/DL Random Glucose 214 MG/DL Total Protein 5.9 GM/DL Albumin 1.5 GM/DL Calcium Level 7.6 MG/DL Phosphorus Level 0.9 MG/DL Magnesium Level 2.2 MG/DL Alkaline Phosphatase 137 U/L Aspartate Amino Transf (AST/SGOT) 112 U/L Alanine Aminotransferase (ALT/SGPT) 195 U/L Total Bilirubin 0.4 MG/DL Direct Bilirubin 0.2 MG/DL Sodium Level 146 MEQ/L Potassium Level 2.7 MEQ/L Chloride Level 111 MEQ/L Carbon Dioxide Level 28.3 MEQ/L Indirect Bilirubin 0.2 MG/DL Lactic Acid Level 1.4 mmol/L Amylase Level 29 U/L Lipase 76 U/L Free Thyroxine 0.70 NG/DL Free Triiodothyronine (T3) pg/dL 0.90 PG/ML Test 10/31/16 05:08 11/02/16 18:00 11/04/16 01:40 11/04/16 05:00 B-Type Natriuretic Peptide 765 PG/ML Stool C. difficile Toxin (PCR) NEGATIVE Stl C. difficile Toxin Epiderm 027 PRESUMPTIVE NEGATIVE Vancomycin Level Trough 25.2 MCG/ML Ammonia 37 MCMOL/L Test 11/05/16 15:00 11/14/16 11:40 11/20/16 05:17 11/22/16 05:24 Random Vancomycin Level 7.1 COMMENT Urine Color YELLOW Urine Turbidity CLEAR Urine pH 5.5 Urine Specific [place] 1.027 Urine Protein 30 mg/dL Urine Glucose (UA) NEG mg/dL Urine Ketones NEG mg/dL Urine Occult Blood SMALL Urine Nitrite NEG Urine Bilirubin NEG Urine Urobilinogen LESS THAN 2.0 MG/DL Urine Leukocyte Esterase NEG Urine RBC 8 /hpf Urine WBC 4 /hpf Urine Squamous Epithelial Cells 3 /hpf Urine Calcium Oxalate Crystals RARE /hpf Urine Bacteria RARE /hpf Urine Hyaline Casts 1 /lpf Urine Mucus FEW /lpf Microscopic Urinalysis Comment CULT NOT INDICATED Hematology Comments Platelet Estimate HIGH Platelet Morphology Comment NORMAL Red Cell Morphology Comment NORMAL Test 11/25/16 08:17 11/26/16 16:50 11/28/16 23:05 12/01/16 13:48 Differential Total Cells Counted 100 Neutrophils % (Manual) 75 % Band Neutrophils % 10 % Lymphocytes % 8 % Monocytes % 6 % Basophils % 1 % Neutrophils # (Manual) 9.9 TH/MM3 Toxic Granulation 1+ Fibrinogen 382 mg/dL Blood Gas Puncture Site RT RADIAL Blood Gas Patient Temperature 98.6 Blood Gas HCO3 29 mmol/L Blood Gas Base Excess 4.2 mmol/L Blood Gas Oxygen Saturation 84 % Arterial Blood pH 7.36 Arterial Blood Partial Pressure CO2 53 mmHg Arterial Blood Partial Pressure O2 56 mmHg Arterial Blood Oxygen Content 9.5 Vol % Arterial Blood Carboxyhemoglobin 2.0 % Arterial Blood Methemoglobin 0.9 % Blood Gas Hemoglobin 8.0 G/DL Oxygen Delivery Device VENT Blood Gas Ventilator Setting SEE COMMENTS Blood Gas Inspired Oxygen 60 % Prothrombin Time 11.1 SEC Prothromb Time International Ratio 1.0 RATIO Activated Partial Thromboplast Time 28.3 SEC Test 12/02/16 04:32 12/14/16 15:00 12/22/16 05:25 01/11/17 05:07 Blood Urea Nitrogen 13 MG/DL 32 MG/DL Creatinine 0.28 MG/DL 0.54 MG/DL Random Glucose 116 MG/DL 88 MG/DL Total Protein 5.0 GM/DL Albumin 1.4 GM/DL Calcium Level 7.7 MG/DL 8.9 MG/DL Phosphorus Level 3.1 MG/DL 4.0 MG/DL Magnesium Level 1.9 MG/DL 1.8 MG/DL Alkaline Phosphatase 70 U/L Aspartate Amino Transf (AST/SGOT) LESS THAN 3 U/L Alanine Aminotransferase (ALT/SGPT) 12 U/L Total Bilirubin 0.4 MG/DL Sodium Level 135 MEQ/L 138 MEQ/L Potassium Level 3.7 MEQ/L 4.7 MEQ/L Chloride Level 101 MEQ/L 106 MEQ/L Carbon Dioxide Level 26.1 MEQ/L 25.2 MEQ/L Prealbumin 19 MG/DL Iron Level 51 MCG/DL Total Iron Binding Capacity 223 MCG/DL Percent Iron Saturation 22.9 % White Blood Count 7.4 TH/MM3 Red Blood Count 2.93 MIL/MM3 Hemoglobin 9.2 GM/DL Hematocrit 27.5 % Mean Corpuscular Volume 93.8 FL Mean Corpuscular Hemoglobin 31.4 PG Mean Corpuscular Hemoglobin Concent 33.5 % Red Cell Distribution Width 16.8 % Platelet Count 239 TH/MM3 Mean Platelet Volume 9.4 FL Neutrophils (%) (Auto) 41.2 % Lymphocytes (%) (Auto) 44.0 % Monocytes (%) (Auto) 7.8 % Eosinophils (%) (Auto) 5.6 % Basophils (%) (Auto) 1.4 % Neutrophils # (Auto) 3.0 TH/MM3 Lymphocytes # (Auto) 3.2 TH/MM3 Monocytes # (Auto) 0.6 TH/MM3 Eosinophils # (Auto) 0.4 TH/MM3 Basophils # (Auto) 0.1 TH/MM3 CBC Comment DIFF FINAL Differential Comment Anion Gap 7 MEQ/L Estimat Glomerular Filtration Rate 159 ML/MIN Objective Remarks GENERAL: Awake and alert, oriented, no acute distress. SKIN: All toes with digital ischemia, left 2nd finger and right ringer finger with distal digit ischemia. Stage 1-2 decubitus ulcer NECK: Bandage noted at neck in covering trach site c/d/i. CARDIOVASCULAR: Regular rate and rhythm. RESPIRATORY: No accessory muscle use. Clear to auscultation. Breath sounds equal bilaterally. GASTROINTESTINAL: Abdomen soft, non-tender, nondistended. Soft PEG in place, site c/d/i MUSCULOSKELETAL: Extremities without clubbing, cyanosis. NEUROLOGICAL: Alert and oriented x3, pleasant. Speech IS soft with short sentences. Medications and IVs Current Medications Medications (Trade) Dose Ordered Sig/Adali Route Start Time Stop Time Status Last Admin (Heparin Inj) 5,000 units Q8HR SQ 10/14/16 22:00 Future Hold 11/13/16 21:20 (Tears Naturale Opth Soln) 1 drop TID EACH EYE 10/19/16 13:00 01/10/17 18:30 (Albuterol Neb) 2.5 mg Q2HR NEB PRN INH 10/19/16 09:45 11/22/16 22:09 Miscellaneous Information 1 Q361D XX 10/19/16 09:45 (Chlorhexidine 2% Cloth) Taper DAILY@04 TOP 10/20/16 04:00 10/16/17 03:59 12/24/16 04:00 (Chlorhexidine 2% Cloth) 3 pack UNSCH PRN TOP 10/19/16 09:45 (Melatonin) 5 mg HS PO 11/01/16 21:00 01/11/17 20:59 (Cardizem) 90 mg Q6HR PO 11/02/16 12:00 01/12/17 05:16 (Baciguent Oint) 1 applic Q12HR TOPICAL 11/18/16 11:00 01/11/17 20:59 (Beneprotein Powder) 1 pack TID G-TUBE 11/19/16 09:00 01/10/17 18:00 (Peridex 0.12% Liq) 15 ml BID@08,20 MT 11/26/16 20:00 01/11/17 08:00 (Santyl Oint) 1 applic DAILY TOPICAL 11/30/16 12:00 01/11/17 13:00 (Racepinephrine 2.25% Neb) 0.5 ml Q4HR NEB PRN NEB 12/03/16 15:00 (Nitroglycerin 2% Oint) 2 inch Q6H PRN TOPICAL 12/04/16 09:15 (Vasotec Inj) 1.25 mg Q6H PRN IV PUSH 12/04/16 09:15 (NS Flush) DAILY IV FLUSH 12/04/16 18:00 01/09/17 09:19 (NS Flush) UNSCH PRN IV FLUSH 12/04/16 18:00 (Imodium Liq) 2 mg UNSCH PRN PO 12/14/16 10:45 (Lactinex) 1 tab TID PO 12/14/16 18:00 01/11/17 17:09 (Pepcid) 20 mg BID PO 12/16/16 21:00 01/11/17 20:58 (Ferrous Sulfate) 325 mg BID@ PO 12/22/16 12:00 01/11/17 17:09 (Vitamin C) 500 mg BID PO 12/22/16 09:00 01/11/17 20:58 Potassium Chloride/Sodium Chloride 1,000 ml @ 100 mls/hr Q10H IV 12/27/16 11:17 01/11/17 21:35 (NS Flush) 2 ml UNSCH PRN IVF 12/27/16 11:30 (NS Flush) 2 ml BID IVF 12/27/16 21:00 01/11/17 09:00 (Dulcolax Supp) 10 mg DAILY PRN RECTAL 12/27/16 11:30 (Colace) 100 mg BID PO 12/27/16 21:00 01/11/17 20:58 (Protonix) 40 mg DAILY PO 12/28/16 09:00 01/11/17 09:43 (Protonix Inj) 40 mg DAILY IVP 12/28/16 09:00 01/11/17 09:43 (Zofran Inj) 4 mg Q6H PRN IV PUSH 12/27/16 11:30 ([place] 10-325 Mg) 1 tab Q4H PRN PO 12/27/16 11:30 12/30/16 05:54 ([place] 10-325 Mg) 2 tab Q4H PRN PO 12/27/16 11:30 12/30/16 14:24 (Morphine Inj) 2 mg Q2H PRN IV PUSH 12/27/16 11:30 12/29/16 15:05 (Morphine Inj) 4 mg Q2H PRN IV PUSH 12/27/16 11:30 12/28/16 18:00 (Tylenol) 650 mg Q4H PRN PO 12/27/16 11:30 (Keppra Liq) 500 mg Q12HR PEG 12/27/16 21:00 01/11/17 20:57 (Bacitracin Oint Packet) 0.9 gm DAILY TOPICAL 12/30/16 18:31 01/11/17 09:00 A/P Assessment and Plan 56-year-old male presents with intracranial bleed, was transferred from [facility]. 1. Subdural Hematoma/duraplasty status post left frontotemporal parietal craniotomy 10/08. 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 Initiated . - Continue Levetiracetam 500 mg per tube q12h. - 10/13 and 10/14 and 10/17) 10/19 left MCA territory vasospasm, status post successful verapamil treatment by IR with 20 mg verapamil - 10/17 CT brain - less hemisphere edema with herniation through left craniotomy site, improved. - Dr. Perry/neurosurgery. S/p left cranioplasty/bone flap 12/27/16. - Echocardiogram 10/14/16 revealed EF 40-45%. Septal hypokinesis. Moderate MR. Severe pulmonary hypertension with pulmonary artery pressures estimated 61 mmHg Limited Echo 11/06: LVEF 60-65%, Trivial mitral and tricuspid regurgitation, No vegetations noted. - On diltiazem's 90 mg by mouth every 6 hours and furosemide 20 mg daily. Monitor BP and if low hold meds. - neurologically stable and doing well, and continued PT and rehabilitation. - PT, OT, speech following. Patient had helmet. -Eating better. Will have dietitian for calorie count and will evaluate if we can remove feeding tube as patient it seems has adequate PO intake. Respiratory failure, S/P tracheostomy. Resolved now satting well on Room air. Monitor O2 sat, O2 supplement to keep O2 sat > 94 - S/p Trach Dr. Sullivan/Dr. Collazo 11/01 #8 [place] - CT angiogram chest/neck revealed right centrilobular bleeding likely source right bronchial artery. Repeat CT chest 11/29no visualization of active bleeding.- Resolved - 12/01 - embolization of right bronchial artery by IR- no further bleeding from tracheostomy - Redo trach 11/[address] Sullivan; down sized to uncuffed fenestrated 6 tracheostomy on 12/14 and now capped. - Albuterol/ipratropium aerosols every 6 hours with albuterol aerosols - Dr. Wilson plan is to downsize tube and probably considering tracheostomy removal - Tolerated tracheostomy capping. Has been decannulated. Tolerating room air. Now satting well on Room air, trach removed, trach site wound cultures pending, added bacitracin and wound care consulted for trach site wound. - Monitor Respiratory status Lower extremity edema improved. Ultrasound Doppler reviewed and no DVT. Patient with high risk of bleeding and is not chemoprophylaxis at this time. Continue SCDs and teds for DVT prophylaxis. Ileus- Resolved Elevated transaminases Hyperammonemia Severe protein caloric malnutrition- continue with tube feeds as tolerated. - Currently on Glucerna 1.5 goal 60 cc an hour. Consult planning aide to review formula. - free water per G tube 200mL per tube q6h. - Lansoprazole 30 mg by tube daily for GI prophylaxis will change this to Pepcid - Continue bowel regimen - Reglan DC 12/13- stools amount decreased and thicker in consistency- continue to monitor - Continue PEG feeding. s/p PEG 11/12/16 - speech following for swallowing progress - Tube feeds only at night, patient has regular trach during the daytime, will order ensure pudding - Dietitian consulted to reevaluate tube feeding rate. Right occlusive subclavian, axillary and bilateral superficial cephalic thrombus - limited Echo to evaluate vegetation-neg. ID following - Digital Ischemia with necrosis involving all toes and left 2nd finger and right ringer finger- stable, conservative management - Digits have demarcated, allow auto amputation. Cardizem PO currently and 90 mg every 6 hours (for digital ischemia, Raynaud's) - Continue bacitracin twice a day to affected areas - Central line for IV access. We'll need to be started on systemic anticoagulation at some point however with recent embolization for hemoptysis holding full anticoagulation at this time. - Consult vascular surgeon . Seen by Dr Valente plan for CTA Ao runoff Stage 2 sacral ulcer - ABD dressing with [employer]- staff nurse makes sure to keep area dry. Wound care also consulted. appreciate recommendations. - Turn position every 2 hours - Out of bed to chair activity Discontinued IV fluids with Potassium, patient eating fine. Course of hospitalization complications Acute hypoxic Respiratory failure secondary to mucous plugging- Resolved Possible healthcare associated pneumonia, Septic Shock- resolved. ARDS - resolved Noncardiogenic/neurogenic pulmonary edema- resolved. Massive Hemoptysis - resolved Aspiration pneumonitis - resolved Cerebral Salt Wasting/SIADH-resolved now hypernatremic - Creatinine currently within normal limits -> resolved. - Monitor urine output Septic and cardiogenic shock- resolved. LV dysfunction secondary to SAH - persistent, now resolved Elevated troponin- secondary to SAH, unlikely to be ACS. - resolved. Pulmonary hypertension s/p PEA arrest 11/28 after ETT dislodgement, hypoxic arrest DVT prop SCD, no chemoprophylaxis secondary to risk for bleeding. No changes to anterior assessment Discharge Planning S/p left cranioplasty by Dr Perry neurosurgery on 12/27/16. He is fairly stable for DC when arrangements done. Pending SSI. Placement will be in intermediate facility or long-term care. CM following for DC plan. Eating better. Will have dietitian for calorie count and will evaluate if we can remove feeding tube as patient it seems has adequate PO intake. Brayden Candelario MD Jan 12, 2017 08:11
[2017-01-12] MEDS: SODIUM CHLORIDE 0.9% FLUSH 10 ML FLUSH IV FLUSH SCH (09:00)
[2017-01-12] MEDS: ARTIFICIAL TEARS OPTH SOLN 15 ML BTL EACH EYE SCH ×3 (09:00→18:00)
[2017-01-12] MEDS: BENEPROTEIN POWDER 1 PACK G-TUBE SCH ×3 (09:00→18:00)
[2017-01-12] MEDS: SODIUM CHLORIDE 0.9% FLUSH 5 ML FLUSH IVF SCH ×2 (09:00→22:37)
[2017-01-12] MEDS: DOCUSATE SODIUM 100 MG CAP PO SCH ×2 (09:34→22:31)
[2017-01-12] MEDS: PANTOPRAZOLE SOD 40 MG DELAYED RELEASE TAB PO SCH (09:34)
[2017-01-12] MEDS: FAMOTIDINE 20 MG TAB PO SCH ×2 (09:34→22:30)
[2017-01-12] MEDS: LACTOBACILLUS ACIDOPHILUS TAB PO SCH ×3 (09:34→17:46)
[2017-01-12] MEDS: ASCORBIC ACID 500 MG TAB PO SCH ×2 (09:34→22:31)
[2017-01-12] MEDS: PANTOPRAZOLE SODIUM 40 MG VIAL IVP SCH (09:35)
[2017-01-12] MEDS: levETIRAcetam 500 MG/5 ML UDC PEG SCH ×2 (09:35→22:32)
[2017-01-12] MEDS: NS + KCL 20 MEQ INJ 1,000 ML IV SCH (10:00)
[2017-01-12 12:00] VITALS: BP 112/71; PULSE 83; RESP 20; TEMP 97.8; O2SAT 98
[2017-01-12] MEDS: FERROUS SULFATE 325 MG (65 MG ELEMENTAL IRON) TAB PO SCH ×2 (12:32→17:46)
[2017-01-12] MEDS: CHLORHEXIDINE 0.12% (ORAL KIT) 15 ML CUP MT SCH ×2 (13:00→20:00)
[2017-01-12 16:00] VITALS: BP 102/69; PULSE 80; RESP 20; TEMP 97.9; O2SAT 98
[2017-01-12] MEDS: COLLAGENASE OINT 30 GM TUBE TOPICAL SCH (18:00)
[2017-01-12] MEDS: BACITRACIN OINT 0.9 GM PKT TOPICAL SCH (18:00)
[2017-01-12] MEDS: BACITRACIN TOP OINT 15 GM TUBE TOPICAL SCH ×2 (18:00→22:34)
[2017-01-12 20:50] VITALS: BP 112/72; PULSE 78; RESP 18; TEMP 98.2; O2SAT 98
[2017-01-12] MEDS: MELATONIN 5 MG TAB PO SCH (22:32)
[2017-01-13 00:13] VITALS: BP 126/74; PULSE 72; RESP 18; TEMP 98.5; O2SAT 98
[2017-01-13] MEDS: DILTIAZEM HCL 90 MG TAB PO SCH ×4 (00:16→17:04)
[2017-01-13] MEDS: CHLORHEXIDINE GLUCONATE 2 % 1 PACK (2 CLOTHS) TOP SCH (03:45)
[2017-01-13 05:51] VITALS: BP 116/75; PULSE 73; RESP 18; TEMP 98.2; O2SAT 97
[2017-01-13] MEDS: CHLORHEXIDINE 0.12% (ORAL KIT) 15 ML CUP MT SCH ×2 (08:00→20:00)
[2017-01-13 08:36] VITALS: BP 119/68; PULSE 115; RESP 20; TEMP 98.4; O2SAT 96
[2017-01-13] MEDS: DOCUSATE SODIUM 100 MG CAP PO SCH ×2 (08:44→21:19)
[2017-01-13] MEDS: FAMOTIDINE 20 MG TAB PO SCH ×2 (08:44→21:19)
[2017-01-13] MEDS: PANTOPRAZOLE SODIUM 40 MG VIAL IVP SCH (08:44)
[2017-01-13] MEDS: SODIUM CHLORIDE 0.9% FLUSH 5 ML FLUSH IVF SCH (08:44)
[2017-01-13] MEDS: PANTOPRAZOLE SOD 40 MG DELAYED RELEASE TAB PO SCH (08:44)
[2017-01-13] MEDS: ASCORBIC ACID 500 MG TAB PO SCH ×2 (08:44→21:19)
[2017-01-13] MEDS: LACTOBACILLUS ACIDOPHILUS TAB PO SCH ×3 (08:44→17:04)
[2017-01-13] MEDS: levETIRAcetam 500 MG/5 ML UDC PEG SCH (08:44)
--- NOTE | 2017-01-13 09:11 | HHI.PR ---
Subjective Remarks No complaint by patient trying to increase activity as recommended and working with Physical Therapy discussed with Nurse Miss Coleman Objective Vital Signs Date Time Temp Pulse Resp B/P (MAP) Pulse Ox O2 Delivery O2 Flow Rate FiO2 01/13/17 08:36 98.4 115 20 119/68 (85) 96 01/13/17 05:51 98.2 73 18 116/75 (89) 97 01/13/17 00:13 98.5 72 18 126/74 (91) 98 01/12/17 20:50 98.2 78 18 112/72 (85) 98 01/12/17 16:00 97.9 80 20 102/69 (80) 98 01/12/17 12:00 97.8 83 20 112/71 (85) 98 I/O 01/12/17 01/12/17 01/12/17 01/13/17 01/13/17 01/13/17 07:00 15:00 23:00 07:00 15:00 23:00 Intake Total 120 ml 1080 ml Output Total 900 ml 1600 ml 850 ml 800 ml Balance -780 ml -520 ml -850 ml -800 ml Intake Oral 120 ml 1080 ml Output Urine Total 900 ml 1600 ml 850 ml 800 ml Result Diagram: 01/11/17 0507 01/11/17 0507 Imaging Last Impressions Lower Extremity Ultrasound 12/29/16 0000 Signed Impressions: Service Date/Time: December 13:07 - CONCLUSION: No sonographic or Doppler findings of deep venous thrombosis. Joni Shelton MD Carotid Artery Ultrasound 12/27/16 0000 Signed Impressions: Service Date/Time: Tuesday, December 27, 2016 17:19 - CONCLUSION: Mild plaque at the carotid bulb regions bilaterally without a significant stenosis seen. Yosvany Alfaro MD Aorta w/Runoff CTA 12/27/16 0000 Signed Impressions: Service Date/Time: Wednesday, December 28, 2016 17:28 - CONCLUSION: Atherosclerotic calcification seen throughout the arterial system without an area of significant stenosis. The trifurcation vessels are only faintly opacified. Yosvany Alfaro MD Modified Barium Swallow 12/23/16 0000 Signed Impressions: Service Date/Time: Friday, December 23, 2016 09:11 - CONCLUSION: Negative for aspiration.. Remington Woodward MD FACR Chest X-Ray 12/04/16 6873 Signed Impressions: Service Date/Time: Sunday, December 04, 2016 18:55 - CONCLUSION: 1. Placement of left central line tip in superior vena cava. No pneumothorax. Mild basilar airspace disease. Small right effusion. Gurwinder Root MD Upper Extremity Ultrasound 12/04/16 Signed Impressions: Service Date/Time: Sunday, December 04, 2016 15:37 - CONCLUSION: 1. Positive for occlusive deep venous thrombosis in the right axillary and subclavian vein. Occlusive superficial thrombus in bilateral cephalic veins. Gurwinder Root MD Angiography 12/01/16 Signed Impressions: Service Date/Time: November 14:02 - CONCLUSION: 1. Right side up on her hemorrhage with angiography of the right bronchial artery revealing no source of active hemorrhage. Empiric embolization was performed. Santos Crockett Jr., MD Chest CT 11/28/16 0000 Signed Impressions: Service Date/Time: Tuesday, November 29, 2016 05:13 - CONCLUSION: 1. Patchy alveolar disease characteristic of edema or pneumonia. 2. Severe emphysema 3. Gastrojejunostomy tube looped in the stomach Harvey Morejon MD Chest/Thorax CTA 11/26/16 0000 Signed Impressions: Service Date/Time: Saturday, November 26, 2016 20:18 - CONCLUSION: 1. Extensive filling defects within the right central bronchial tree characteristic of endobronchial hemorrhage. 2. Consolidating airspace disease in the right upper lobe and right lower lobe characteristic of hemorrhage and post obstructive lung consolidation. 3. Right bronchial artery is identified extending to the central right bronchial region 4. Advanced COPD. Nasir Amanda MD Abdomen X-Ray 11/19/16599 Signed Impressions: Service Date/Time: Saturday, November 19, 2016 02:44 - CONCLUSION: Unchanged bowel gas pattern potentially relating to an ileus. Santos Crockett Jr., MD Transcranial Doppler Study Complete 10/20/16599 Signed Impressions: Service Date/Time: October 07:54 - CONCLUSION: Slight interval elevation of flow velocity measurements and ratio on the left Yosvany Polk MD Liver Ultrasound 10/19/16 0000 Signed Impressions: Service Date/Time: Wednesday, October 19, 2016 11:20 - CONCLUSION: 1. Sludge filled gallbladder with thickened wall. 2. Moderate size bilateral pleural effusions and mild upper abdominal ascites. Santos Vazquez MD Cerebral Arteriogram 10/19/16 0000 Signed Impressions: Service Date/Time: Wednesday, October 19, 2016 12:47 - CONCLUSION: Uncomplicated cerebral arteriography with spasmolytic therapy as described in detail above. Yosvany Polk MD Head CT 10/17/16 0000 Signed Impressions: Service Date/Time: Monday, October 17, 2016 15:06 - CONCLUSION: Ventricles are slightly larger without ventriculostomy. Edema in the left hemisphere the brain herniating through the operative site. Remington Woodward MD FACR Infusion Non-thrombolysis 10/14/16 1103 Signed Impressions: Service Date/Time: Friday, October 14, 2016 10:21 - CONCLUSION: 1. Uncomplicated infusion for spasmolysis Harvey Morejon MD Neck CTA 10/07/16 0000 Signed Impressions: Service Date/Time: Friday, October 07, 2016 15:03 - CONCLUSION: 1. Mild carotid bulb atherosclerotic calcification bilaterally. However, no significant stenosis is present in either internal carotid artery. 2. Paranasal sinus mucoperiosteal thickening. 3. Please refer to brain CTA report for description of the intracranial findings. Yosvany Ramirez MD Head CTA 10/07/16 0000 Signed Impressions: Service Date/Time: Friday, October 07, 2016 15:03 - CONCLUSION: 1. 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 2. Large left subdural hematoma measuring 1.3 cm in depth with a significant, 1.6 cm left to right subfalcine shift. Joni Shelton MD Procedures 10/13 Four-vessel cerebral angiography with verapamil treatment of vasospasm Status post left frontotemporal parietal craniectomy 10/08 for evacuation subdural hematoma/duraplasty. 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 parietal cranioplasty with replacement of skull flap by Dr Perry neurosurgery on 12/27/16 Other Results Laboratory Tests Test 10/11/16 23:50 10/14/16 10:00 10/15/16 02:10 10/15/16 03:40 Nasal Screen MRSA (PCR) MRSA NOT DETECTED Urine Osmolality 409 MOSM/KG Serum Osmolality 279 MOSM/KG Procalcitonin 6.86 ng/mL Random Cortisol 35.0 MCG/DL Test 10/16/16 01:07 10/18/16 05:45 10/19/16 00:00 10/19/16 12:00 Troponin I 2.47 NG/ML Protein Corrected Calcium 7.9 MG/DL Total Creatine Kinase 1073 U/L Creatine Kinase MB 14.1 NG/ML Creatine Kinase MB % 1.3 % Thyroid Stimulating Hormone 3rd Gen 0.256 uIU/ML Urine Amorphous Sediment RARE Urine Random Sodium 49 MEQ/L Test 10/20/16 10:40 10/20/16 13:00 10/21/16 04:20 10/21/16 14:30 Phenytoin (Dilantin) Level 6.0 MCG/ML Blood Urea Nitrogen 19 MG/DL Creatinine 0.53 MG/DL Random Glucose 214 MG/DL Total Protein 5.9 GM/DL Albumin 1.5 GM/DL Calcium Level 7.6 MG/DL Phosphorus Level 0.9 MG/DL Magnesium Level 2.2 MG/DL Alkaline Phosphatase 137 U/L Aspartate Amino Transf (AST/SGOT) 112 U/L Alanine Aminotransferase (ALT/SGPT) 195 U/L Total Bilirubin 0.4 MG/DL Direct Bilirubin 0.2 MG/DL Sodium Level 146 MEQ/L Potassium Level 2.7 MEQ/L Chloride Level 111 MEQ/L Carbon Dioxide Level 28.3 MEQ/L Indirect Bilirubin 0.2 MG/DL Lactic Acid Level 1.4 mmol/L Amylase Level 29 U/L Lipase 76 U/L Free Thyroxine 0.70 NG/DL Free Triiodothyronine (T3) pg/dL 0.90 PG/ML Test 10/31/16 05:08 11/02/16 18:00 11/04/16 01:40 11/04/16 05:00 B-Type Natriuretic Peptide 765 PG/ML Stool C. difficile Toxin (PCR) NEGATIVE Stl C. difficile Toxin Epiderm 027 PRESUMPTIVE NEGATIVE Vancomycin Level Trough 25.2 MCG/ML Ammonia 37 MCMOL/L Test 11/05/16 15:00 11/14/16 11:40 11/20/16 05:17 11/22/16 05:24 Random Vancomycin Level 7.1 COMMENT Urine Color YELLOW Urine Turbidity CLEAR Urine pH 5.5 Urine Specific [place] 1.027 Urine Protein 30 mg/dL Urine Glucose (UA) NEG mg/dL Urine Ketones NEG mg/dL Urine Occult Blood SMALL Urine Nitrite NEG Urine Bilirubin NEG Urine Urobilinogen LESS THAN 2.0 MG/DL Urine Leukocyte Esterase NEG Urine RBC 8 /hpf Urine WBC 4 /hpf Urine Squamous Epithelial Cells 3 /hpf Urine Calcium Oxalate Crystals RARE /hpf Urine Bacteria RARE /hpf Urine Hyaline Casts 1 /lpf Urine Mucus FEW /lpf Microscopic Urinalysis Comment CULT NOT INDICATED Hematology Comments Platelet Estimate HIGH Platelet Morphology Comment NORMAL Red Cell Morphology Comment NORMAL Test 11/25/16 08:17 11/26/16 16:50 11/28/16 23:05 12/01/16 13:48 Differential Total Cells Counted 100 Neutrophils % (Manual) 75 % Band Neutrophils % 10 % Lymphocytes % 8 % Monocytes % 6 % Basophils % 1 % Neutrophils # (Manual) 9.9 TH/MM3 Toxic Granulation 1+ Fibrinogen 382 mg/dL Blood Gas Puncture Site RT RADIAL Blood Gas Patient Temperature 98.6 Blood Gas HCO3 29 mmol/L Blood Gas Base Excess 4.2 mmol/L Blood Gas Oxygen Saturation 84 % Arterial Blood pH 7.36 Arterial Blood Partial Pressure CO2 53 mmHg Arterial Blood Partial Pressure O2 56 mmHg Arterial Blood Oxygen Content 9.5 Vol % Arterial Blood Carboxyhemoglobin 2.0 % Arterial Blood Methemoglobin 0.9 % Blood Gas Hemoglobin 8.0 G/DL Oxygen Delivery Device VENT Blood Gas Ventilator Setting SEE COMMENTS Blood Gas Inspired Oxygen 60 % Prothrombin Time 11.1 SEC Prothromb Time International Ratio 1.0 RATIO Activated Partial Thromboplast Time 28.3 SEC Test 12/02/16 04:32 12/14/16 15:00 12/22/16 05:25 01/11/17 05:07 Blood Urea Nitrogen 13 MG/DL 32 MG/DL Creatinine 0.28 MG/DL 0.54 MG/DL Random Glucose 116 MG/DL 88 MG/DL Total Protein 5.0 GM/DL Albumin 1.4 GM/DL Calcium Level 7.7 MG/DL 8.9 MG/DL Phosphorus Level 3.1 MG/DL 4.0 MG/DL Magnesium Level 1.9 MG/DL 1.8 MG/DL Alkaline Phosphatase 70 U/L Aspartate Amino Transf (AST/SGOT) LESS THAN 3 U/L Alanine Aminotransferase (ALT/SGPT) 12 U/L Total Bilirubin 0.4 MG/DL Sodium Level 135 MEQ/L 138 MEQ/L Potassium Level 3.7 MEQ/L 4.7 MEQ/L Chloride Level 101 MEQ/L 106 MEQ/L Carbon Dioxide Level 26.1 MEQ/L 25.2 MEQ/L Prealbumin 19 MG/DL Iron Level 51 MCG/DL Total Iron Binding Capacity 223 MCG/DL Percent Iron Saturation 22.9 % White Blood Count 7.4 TH/MM3 Red Blood Count 2.93 MIL/MM3 Hemoglobin 9.2 GM/DL Hematocrit 27.5 % Mean Corpuscular Volume 93.8 FL Mean Corpuscular Hemoglobin 31.4 PG Mean Corpuscular Hemoglobin Concent 33.5 % Red Cell Distribution Width 16.8 % Platelet Count 239 TH/MM3 Mean Platelet Volume 9.4 FL Neutrophils (%) (Auto) 41.2 % Lymphocytes (%) (Auto) 44.0 % Monocytes (%) (Auto) 7.8 % Eosinophils (%) (Auto) 5.6 % Basophils (%) (Auto) 1.4 % Neutrophils # (Auto) 3.0 TH/MM3 Lymphocytes # (Auto) 3.2 TH/MM3 Monocytes # (Auto) 0.6 TH/MM3 Eosinophils # (Auto) 0.4 TH/MM3 Basophils # (Auto) 0.1 TH/MM3 CBC Comment DIFF FINAL Differential Comment Anion Gap 7 MEQ/L Estimat Glomerular Filtration Rate 159 ML/MIN Objective Remarks GENERAL: Awake and alert, oriented, no acute distress. SKIN: All toes with digital ischemia, left 2nd finger and right ringer finger with distal digit ischemia. Stage 1-2 decubitus ulcer NECK: Bandage noted at neck in covering trach site c/d/i. CARDIOVASCULAR: Regular rate and rhythm. RESPIRATORY: No accessory muscle use. Clear to auscultation. Breath sounds equal bilaterally. GASTROINTESTINAL: Abdomen soft, non-tender, nondistended. Soft PEG in place, site c/d/i MUSCULOSKELETAL: Extremities without clubbing, cyanosis. NEUROLOGICAL: Alert and oriented x3, pleasant. Speech IS soft with short sentences. Medications and IVs Current Medications Medications (Trade) Dose Ordered Sig/Adali Route Start Time Stop Time Status Last Admin (Heparin Inj) 5,000 units Q8HR SQ 10/14/16 22:00 Future Hold 11/13/16 21:20 (Tears Naturale Opth Soln) 1 drop TID EACH EYE 10/19/16 13:00 01/12/17 13:00 (Albuterol Neb) 2.5 mg Q2HR NEB PRN INH 10/19/16 09:45 11/22/16 22:09 Miscellaneous Information 1 Q361D XX 10/19/16 09:45 (Chlorhexidine 2% Cloth) Taper DAILY@04 TOP 10/20/16 04:00 10/16/17 03:59 12/24/16 04:00 (Chlorhexidine 2% Cloth) 3 pack UNSCH PRN TOP 10/19/16 09:45 (Melatonin) 5 mg HS PO 11/01/16 21:00 01/12/17 22:32 (Cardizem) 90 mg Q6HR PO 11/02/16 12:00 01/13/17 05:16 (Baciguent Oint) 1 applic Q12HR TOPICAL 11/18/16 11:00 01/12/17 22:34 (Beneprotein Powder) 1 pack TID G-TUBE 11/19/16 09:00 01/10/17 18:00 (Peridex 0.12% Liq) 15 ml BID@08,20 MT 11/26/16 20:00 01/12/17 13:00 (Santyl Oint) 1 applic DAILY TOPICAL 11/30/16 12:00 01/12/17 18:00 (Racepinephrine 2.25% Neb) 0.5 ml Q4HR NEB PRN NEB 12/03/16 15:00 (Nitroglycerin 2% Oint) 2 inch Q6H PRN TOPICAL 12/04/16 09:15 (Vasotec Inj) 1.25 mg Q6H PRN IV PUSH 12/04/16 09:15 (NS Flush) DAILY IV FLUSH 12/04/16 18:00 01/09/17 09:19 (NS Flush) UNSCH PRN IV FLUSH 12/04/16 18:00 (Imodium Liq) 2 mg UNSCH PRN PO 12/14/16 10:45 (Lactinex) 1 tab TID PO 12/14/16 18:00 01/13/17 08:44 (Pepcid) 20 mg BID PO 12/16/16 21:00 01/13/17 08:44 (Ferrous Sulfate) 325 mg BID@ PO 12/22/16 12:00 01/12/17 17:46 (Vitamin C) 500 mg BID PO 12/22/16 09:00 01/13/17 08:44 (NS Flush) 2 ml UNSCH PRN IVF 12/27/16 11:30 (NS Flush) 2 ml BID IVF 12/27/16 21:00 01/13/17 08:44 (Dulcolax Supp) 10 mg DAILY PRN RECTAL 12/27/16 11:30 (Colace) 100 mg BID PO 12/27/16 21:00 01/13/17 08:44 (Protonix) 40 mg DAILY PO 12/28/16 09:00 01/13/17 08:44 (Protonix Inj) 40 mg DAILY IVP 12/28/16 09:00 01/13/17 08:44 (Zofran Inj) 4 mg Q6H PRN IV PUSH 12/27/16 11:30 ([place] 10-325 Mg) 1 tab Q4H PRN PO 12/27/16 11:30 12/30/16 05:54 ([place] 10-325 Mg) 2 tab Q4H PRN PO 12/27/16 11:30 12/30/16 14:24 (Morphine Inj) 2 mg Q2H PRN IV PUSH 12/27/16 11:30 12/29/16 15:05 (Morphine Inj) 4 mg Q2H PRN IV PUSH 12/27/16 11:30 12/28/16 18:00 (Tylenol) 650 mg Q4H PRN PO 12/27/16 11:30 (Keppra Liq) 500 mg Q12HR PEG 12/27/16 21:00 01/13/17 08:44 (Bacitracin Oint Packet) 0.9 gm DAILY TOPICAL 12/30/16 18:31 01/12/17 18:00 A/P Assessment and Plan 56-year-old male presents with intracranial bleed, was transferred from [facility]. 1. Subdural Hematoma/duraplasty status post left frontotemporal parietal craniotomy 10/08. 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 Initiated . - Continue Levetiracetam 500 mg per tube q12h. - 10/13 and 10/14 and 10/17) 10/19 left MCA territory vasospasm, status post successful verapamil treatment by IR with 20 mg verapamil - 10/17 CT brain - less hemisphere edema with herniation through left craniotomy site, improved. - Dr. Perry/neurosurgery. S/p left cranioplasty/bone flap 12/27/16. - Echocardiogram 10/14/16 revealed EF 40-45%. Septal hypokinesis. Moderate MR. Severe pulmonary hypertension with pulmonary artery pressures estimated 61 mmHg Limited Echo 11/06: LVEF 60-65%, Trivial mitral and tricuspid regurgitation, No vegetations noted. - On diltiazem's 90 mg by mouth every 6 hours and furosemide 20 mg daily. Monitor BP and if low hold meds. - neurologically stable and doing well, and continued PT and rehabilitation. - PT, OT, speech following. Patient had helmet. -Eating better. Will have dietitian for calorie count and will evaluate if we can remove feeding tube as patient it seems has adequate PO intake. Respiratory failure, S/P tracheostomy. Resolved now satting well on Room air. Monitor O2 sat, O2 supplement to keep O2 sat > 94 - S/p Trach Dr. Sullivan/Dr. Collazo 11/01 #8 [place] - CT angiogram chest/neck revealed right centrilobular bleeding likely source right bronchial artery. Repeat CT chest 11/29no visualization of active bleeding.- Resolved - 12/01 - embolization of right bronchial artery by IR- no further bleeding from tracheostomy - Redo trach 11/[address] Sullivan; down sized to uncuffed fenestrated 6 tracheostomy on 12/14 and now capped. - Albuterol/ipratropium aerosols every 6 hours with albuterol aerosols - Dr. Wilson plan is to downsize tube and probably considering tracheostomy removal - Tolerated tracheostomy capping. Has been decannulated. Tolerating room air. Now satting well on Room air, trach removed, trach site wound cultures pending, added bacitracin and wound care consulted for trach site wound. - Monitor Respiratory status Lower extremity edema improved. Ultrasound Doppler reviewed and no DVT. Patient with high risk of bleeding and is not chemoprophylaxis at this time. Continue SCDs and teds for DVT prophylaxis. Ileus- Resolved Elevated transaminases Hyperammonemia Severe protein caloric malnutrition- continue with tube feeds as tolerated. - Currently on Glucerna 1.5 goal 60 cc an hour. Consult body die maker to review formula. - free water per G tube 200mL per tube q6h. - Lansoprazole 30 mg by tube daily for GI prophylaxis will change this to Pepcid - Continue bowel regimen - Reglan DC 12/13- stools amount decreased and thicker in consistency- continue to monitor - Continue PEG feeding. s/p PEG 11/12/16 - speech following for swallowing progress - Tube feeds only at night, patient has regular trach during the daytime, will order ensure pudding - Dietitian consulted to reevaluate tube feeding rate. Right occlusive subclavian, axillary and bilateral superficial cephalic thrombus - limited Echo to evaluate vegetation-neg. ID following - Digital Ischemia with necrosis involving all toes and left 2nd finger and right ringer finger- stable, conservative management - Digits have demarcated, allow auto amputation. Cardizem PO currently and 90 mg every 6 hours (for digital ischemia, Raynaud's) - Continue bacitracin twice a day to affected areas - Central line for IV access. We'll need to be started on systemic anticoagulation at some point however with recent embolization for hemoptysis holding full anticoagulation at this time. - Consult vascular surgeon . Seen by Dr Valente plan for CTA Ao runoff Stage 2 sacral ulcer - ABD dressing with [employer]- staff nurse makes sure to keep area dry. Wound care also consulted. appreciate recommendations. - Turn position every 2 hours - Out of bed to chair activity Discontinued IV fluids with Potassium, patient eating fine. Course of hospitalization complications Acute hypoxic Respiratory failure secondary to mucous plugging- Resolved Possible healthcare associated pneumonia, Septic Shock- resolved. ARDS - resolved Noncardiogenic/neurogenic pulmonary edema- resolved. Massive Hemoptysis - resolved Aspiration pneumonitis - resolved Cerebral Salt Wasting/SIADH-resolved now hypernatremic - Creatinine currently within normal limits -> resolved. - Monitor urine output Septic and cardiogenic shock- resolved. LV dysfunction secondary to SAH - persistent, now resolved Elevated troponin- secondary to SAH, unlikely to be ACS. - resolved. Pulmonary hypertension s/p PEA arrest 11/28 after ETT dislodgement, hypoxic arrest DVT prop SCD, no chemoprophylaxis secondary to risk for bleeding. The patient is eating properly asked for Dietitian will be important to reevaluate the need for the PEG tube also removed some old medicines not used anymore. Discharge Planning S/p left cranioplasty by Dr Perry neurosurgery on 12/27/16. He is fairly stable for DC when arrangements done. Pending SSI. Placement will be in residential facility or long-term care. CM following for DC plan. Eating better. Will have dietitian for calorie count and will evaluate if we can remove feeding tube as patient it seems has adequate PO intake. Brayden Candelario MD Jan 13, 2017 09:11
[2017-01-13 11:43] VITALS: BP 101/77; PULSE 97; RESP 20; TEMP 97.6; O2SAT 99
[2017-01-13] MEDS: FERROUS SULFATE 325 MG (65 MG ELEMENTAL IRON) TAB PO SCH ×2 (12:14→17:04)
[2017-01-13] MEDS: ARTIFICIAL TEARS OPTH SOLN 15 ML BTL EACH EYE SCH ×3 (13:00→17:35)
[2017-01-13 15:45] VITALS: BP 114/67; PULSE 76; RESP 20; TEMP 98.2; O2SAT 98
[2017-01-13] MEDS: BACITRACIN TOP OINT 15 GM TUBE TOPICAL SCH ×2 (17:00→21:20)
[2017-01-13] MEDS: COLLAGENASE OINT 30 GM TUBE TOPICAL SCH (17:00)
[2017-01-13] MEDS: BACITRACIN OINT 0.9 GM PKT TOPICAL SCH (17:00)
[2017-01-13 21:02] VITALS: BP 115/70; PULSE 74; RESP 18; TEMP 98.5; O2SAT 99
[2017-01-13] MEDS: MELATONIN 5 MG TAB PO SCH (21:19)
[2017-01-14] MEDS: DILTIAZEM HCL 90 MG TAB PO SCH ×4 (00:24→17:51)
[2017-01-14 01:32] VITALS: BP 120/76; PULSE 78; RESP 18; TEMP 98.4; O2SAT 96
[2017-01-14 04:59] VITALS: BP 129/76; PULSE 78; RESP 18; TEMP 98.6; O2SAT 96
[2017-01-14] MEDS: CHLORHEXIDINE 0.12% (ORAL KIT) 15 ML CUP MT SCH ×2 (08:00→20:00)
--- NOTE | 2017-01-14 08:22 | HHI.PR ---
Subjective Remarks Seen in his bedroom and discussed with nurse Miss Koehler the patient was going to the restroom yesterday afternoon and fell, discussed with patient he states he has no pain anywhere. no nausea, vomit or diarrhea. Objective Vital Signs Date Time Temp Pulse Resp B/P (MAP) Pulse Ox O2 Delivery O2 Flow Rate FiO2 01/14/17 04:59 98.6 78 18 129/76 (93) 96 01/14/17 01:32 98.4 78 18 120/76 (91) 96 01/13/17 21:02 98.5 74 18 115/70 (85) 99 01/13/17 15:45 98.2 76 20 114/67 (83) 98 01/13/17 11:43 97.6 97 20 101/77 (85) 99 01/13/17 08:36 98.4 115 20 119/68 (85) 96 I/O 01/13/17 01/13/17 01/13/17 01/14/17 01/14/17 01/14/17 07:00 15:00 23:00 07:00 15:00 23:00 Intake Total 720 ml Output Total 800 ml 800 ml 300 ml 400 ml Balance -800 ml -80 ml -300 ml -400 ml Intake Oral 720 ml Output Urine Total 800 ml 800 ml 300 ml 400 ml # Bowel Movements 1 Result Diagram: 01/11/17 0507 01/11/17 0507 Imaging Last Impressions Lower Extremity Ultrasound 12/29/16 0000 Signed Impressions: Service Date/Time: December 13:07 - CONCLUSION: No sonographic or Doppler findings of deep venous thrombosis. Joni Shelton MD Carotid Artery Ultrasound 12/27/16 0000 Signed Impressions: Service Date/Time: Tuesday, December 27, 2016 17:19 - CONCLUSION: Mild plaque at the carotid bulb regions bilaterally without a significant stenosis seen. Yosvany Alfaro MD Aorta w/Runoff CTA 12/27/16 0000 Signed Impressions: Service Date/Time: Wednesday, December 28, 2016 17:28 - CONCLUSION: Atherosclerotic calcification seen throughout the arterial system without an area of significant stenosis. The trifurcation vessels are only faintly opacified. Yosvany Alfaro MD Modified Barium Swallow 12/23/16 0000 Signed Impressions: Service Date/Time: Friday, December 23, 2016 09:11 - CONCLUSION: Negative for aspiration.. Remington Woodward MD FACR Chest X-Ray 12/04/16 5453 Signed Impressions: Service Date/Time: Sunday, December 04, 2016 18:55 - CONCLUSION: 1. Placement of left central line tip in superior vena cava. No pneumothorax. Mild basilar airspace disease. Small right effusion. Gurwindre Root MD Upper Extremity Ultrasound 12/04/16 0000 Signed Impressions: Service Date/Time: Sunday, December 04, 2016 15:37 - CONCLUSION: 1. Positive for occlusive deep venous thrombosis in the right axillary and subclavian vein. Occlusive superficial thrombus in bilateral cephalic veins. Gurwinder Root MD Angiography 12/01/16 0000 Signed Impressions: Service Date/Time: November 14:02 - CONCLUSION: 1. Right side up on her hemorrhage with angiography of the right bronchial artery revealing no source of active hemorrhage. Empiric embolization was performed. Satnos Crockett Jr., MD Chest CT 11/28/16 0000 Signed Impressions: Service Date/Time: Tuesday, November 29, 2016 05:13 - CONCLUSION: 1. Patchy alveolar disease characteristic of edema or pneumonia. 2. Severe emphysema 3. Gastrojejunostomy tube looped in the stomach Harvey Morejon MD Chest/Thorax CTA 11/26/16 0000 Signed Impressions: Service Date/Time: Saturday, November 26, 2016 20:18 - CONCLUSION: 1. Extensive filling defects within the right central bronchial tree characteristic of endobronchial hemorrhage. 2. Consolidating airspace disease in the right upper lobe and right lower lobe characteristic of hemorrhage and post obstructive lung consolidation. 3. Right bronchial artery is identified extending to the central right bronchial region 4. Advanced COPD. Nasir Amanda MD Abdomen X-Ray 11/19/16 0600 Signed Impressions: Service Date/Time: Saturday, November 19, 2016 02:44 - CONCLUSION: Unchanged bowel gas pattern potentially relating to an ileus. Santos Crockett Jr., MD Transcranial Doppler Study Complete 10/20/16 0600 Signed Impressions: Service Date/Time: October 07:54 - CONCLUSION: Slight interval elevation of flow velocity measurements and ratio on the left Yosvany Polk MD Liver Ultrasound 10/19/16 0000 Signed Impressions: Service Date/Time: Wednesday, October 19, 2016 11:20 - CONCLUSION: 1. Sludge filled gallbladder with thickened wall. 2. Moderate size bilateral pleural effusions and mild upper abdominal ascites. Santos Vazquez MD Cerebral Arteriogram 10/19/16 0000 Signed Impressions: Service Date/Time: Wednesday, October 19, 2016 12:47 - CONCLUSION: Uncomplicated cerebral arteriography with spasmolytic therapy as described in detail above. Yosvany Polk MD Head CT 10/17/16 0000 Signed Impressions: Service Date/Time: Monday, October 17, 2016 15:06 - CONCLUSION: Ventricles are slightly larger without ventriculostomy. Edema in the left hemisphere the brain herniating through the operative site. Remington Woodward MD FACR Infusion Non-thrombolysis 10/14/16 1103 Signed Impressions: Service Date/Time: Friday, October 14, 2016 10:21 - CONCLUSION: 1. Uncomplicated infusion for spasmolysis Harvey Morejon MD Neck CTA 10/07/16 0000 Signed Impressions: Service Date/Time: Friday, October 07, 2016 15:03 - CONCLUSION: 1. Mild carotid bulb atherosclerotic calcification bilaterally. However, no significant stenosis is present in either internal carotid artery. 2. Paranasal sinus mucoperiosteal thickening. 3. Please refer to brain CTA report for description of the intracranial findings. Yosvany Ramirez MD Head CTA 10/07/16 0000 Signed Impressions: Service Date/Time: Friday, October 07, 2016 15:03 - CONCLUSION: 1. 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 2. Large left subdural hematoma measuring 1.3 cm in depth with a significant, 1.6 cm left to right subfalcine shift. Joni Shelton MD Procedures 10/13 Four-vessel cerebral angiography with verapamil treatment of vasospasm Status post left frontotemporal parietal craniectomy 10/08 for evacuation subdural hematoma/duraplasty. 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 parietal cranioplasty with replacement of skull flap by Dr Perry neurosurgery on 12/27/16 Other Results Laboratory Tests Test 10/11/16 23:50 10/14/16 10:00 10/15/16 02:10 10/15/16 03:40 Nasal Screen MRSA (PCR) MRSA NOT DETECTED Urine Osmolality 409 MOSM/KG Serum Osmolality 279 MOSM/KG Procalcitonin 6.86 ng/mL Random Cortisol 35.0 MCG/DL Test 10/16/16 01:07 10/18/16 05:45 10/19/16 00:00 10/19/16 12:00 Troponin I 2.47 NG/ML Protein Corrected Calcium 7.9 MG/DL Total Creatine Kinase 1073 U/L Creatine Kinase MB 14.1 NG/ML Creatine Kinase MB % 1.3 % Thyroid Stimulating Hormone 3rd Gen 0.256 uIU/ML Urine Amorphous Sediment RARE Urine Random Sodium 49 MEQ/L Test 10/20/16 10:40 10/20/16 13:00 10/21/16 04:20 10/21/16 14:30 Phenytoin (Dilantin) Level 6.0 MCG/ML Blood Urea Nitrogen 19 MG/DL Creatinine 0.53 MG/DL Random Glucose 214 MG/DL Total Protein 5.9 GM/DL Albumin 1.5 GM/DL Calcium Level 7.6 MG/DL Phosphorus Level 0.9 MG/DL Magnesium Level 2.2 MG/DL Alkaline Phosphatase 137 U/L Aspartate Amino Transf (AST/SGOT) 112 U/L Alanine Aminotransferase (ALT/SGPT) 195 U/L Total Bilirubin 0.4 MG/DL Direct Bilirubin 0.2 MG/DL Sodium Level 146 MEQ/L Potassium Level 2.7 MEQ/L Chloride Level 111 MEQ/L Carbon Dioxide Level 28.3 MEQ/L Indirect Bilirubin 0.2 MG/DL Lactic Acid Level 1.4 mmol/L Amylase Level 29 U/L Lipase 76 U/L Free Thyroxine 0.70 NG/DL Free Triiodothyronine (T3) pg/dL 0.90 PG/ML Test 10/31/16 05:08 11/02/16 18:00 11/04/16 01:40 11/04/16 05:00 B-Type Natriuretic Peptide 765 PG/ML Stool C. difficile Toxin (PCR) NEGATIVE Stl C. difficile Toxin Epiderm 027 PRESUMPTIVE NEGATIVE Vancomycin Level Trough 25.2 MCG/ML Ammonia 37 MCMOL/L Test 11/05/16 15:00 11/14/16 11:40 11/20/16 05:17 11/22/16 05:24 Random Vancomycin Level 7.1 COMMENT Urine Color YELLOW Urine Turbidity CLEAR Urine pH 5.5 Urine Specific [place] 1.027 Urine Protein 30 mg/dL Urine Glucose (UA) NEG mg/dL Urine Ketones NEG mg/dL Urine Occult Blood SMALL Urine Nitrite NEG Urine Bilirubin NEG Urine Urobilinogen LESS THAN 2.0 MG/DL Urine Leukocyte Esterase NEG Urine RBC 8 /hpf Urine WBC 4 /hpf Urine Squamous Epithelial Cells 3 /hpf Urine Calcium Oxalate Crystals RARE /hpf Urine Bacteria RARE /hpf Urine Hyaline Casts 1 /lpf Urine Mucus FEW /lpf Microscopic Urinalysis Comment CULT NOT INDICATED Hematology Comments Platelet Estimate HIGH Platelet Morphology Comment NORMAL Red Cell Morphology Comment NORMAL Test 11/25/16 08:17 11/26/16 16:50 11/28/16 23:05 12/01/16 13:48 Differential Total Cells Counted 100 Neutrophils % (Manual) 75 % Band Neutrophils % 10 % Lymphocytes % 8 % Monocytes % 6 % Basophils % 1 % Neutrophils # (Manual) 9.9 TH/MM3 Toxic Granulation 1+ Fibrinogen 382 mg/dL Blood Gas Puncture Site RT RADIAL Blood Gas Patient Temperature 98.6 Blood Gas HCO3 29 mmol/L Blood Gas Base Excess 4.2 mmol/L Blood Gas Oxygen Saturation 84 % Arterial Blood pH 7.36 Arterial Blood Partial Pressure CO2 53 mmHg Arterial Blood Partial Pressure O2 56 mmHg Arterial Blood Oxygen Content 9.5 Vol % Arterial Blood Carboxyhemoglobin 2.0 % Arterial Blood Methemoglobin 0.9 % Blood Gas Hemoglobin 8.0 G/DL Oxygen Delivery Device VENT Blood Gas Ventilator Setting SEE COMMENTS Blood Gas Inspired Oxygen 60 % Prothrombin Time 11.1 SEC Prothromb Time International Ratio 1.0 RATIO Activated Partial Thromboplast Time 28.3 SEC Test 12/02/16 04:32 12/14/16 15:00 12/22/16 05:25 01/11/17 05:07 Blood Urea Nitrogen 13 MG/DL 32 MG/DL Creatinine 0.28 MG/DL 0.54 MG/DL Random Glucose 116 MG/DL 88 MG/DL Total Protein 5.0 GM/DL Albumin 1.4 GM/DL Calcium Level 7.7 MG/DL 8.9 MG/DL Phosphorus Level 3.1 MG/DL 4.0 MG/DL Magnesium Level 1.9 MG/DL 1.8 MG/DL Alkaline Phosphatase 70 U/L Aspartate Amino Transf (AST/SGOT) LESS THAN 3 U/L Alanine Aminotransferase (ALT/SGPT) 12 U/L Total Bilirubin 0.4 MG/DL Sodium Level 135 MEQ/L 138 MEQ/L Potassium Level 3.7 MEQ/L 4.7 MEQ/L Chloride Level 101 MEQ/L 106 MEQ/L Carbon Dioxide Level 26.1 MEQ/L 25.2 MEQ/L Prealbumin 19 MG/DL Iron Level 51 MCG/DL Total Iron Binding Capacity 223 MCG/DL Percent Iron Saturation 22.9 % White Blood Count 7.4 TH/MM3 Red Blood Count 2.93 MIL/MM3 Hemoglobin 9.2 GM/DL Hematocrit 27.5 % Mean Corpuscular Volume 93.8 FL Mean Corpuscular Hemoglobin 31.4 PG Mean Corpuscular Hemoglobin Concent 33.5 % Red Cell Distribution Width 16.8 % Platelet Count 239 TH/MM3 Mean Platelet Volume 9.4 FL Neutrophils (%) (Auto) 41.2 % Lymphocytes (%) (Auto) 44.0 % Monocytes (%) (Auto) 7.8 % Eosinophils (%) (Auto) 5.6 % Basophils (%) (Auto) 1.4 % Neutrophils # (Auto) 3.0 TH/MM3 Lymphocytes # (Auto) 3.2 TH/MM3 Monocytes # (Auto) 0.6 TH/MM3 Eosinophils # (Auto) 0.4 TH/MM3 Basophils # (Auto) 0.1 TH/MM3 CBC Comment DIFF FINAL Differential Comment Anion Gap 7 MEQ/L Estimat Glomerular Filtration Rate 159 ML/MIN Objective Remarks GENERAL: Awake and alert, oriented, no acute distress. SKIN: All toes with digital ischemia, left 2nd finger and right ringer finger with distal digit ischemia. Stage 1-2 decubitus ulcer NECK: Bandage noted at neck in covering trach site c/d/i. CARDIOVASCULAR: Regular rate and rhythm. RESPIRATORY: No accessory muscle use. Clear to auscultation. Breath sounds equal bilaterally. GASTROINTESTINAL: Abdomen soft, non-tender, nondistended. Soft PEG in place, site c/d/i MUSCULOSKELETAL: Extremities without clubbing, cyanosis. NEUROLOGICAL: Alert and oriented x3, pleasant. Speech IS soft with short sentences. Medications and IVs Current Medications Medications (Trade) Dose Ordered Sig/Adali Route Start Time Stop Time Status Last Admin (Heparin Inj) 5,000 units Q8HR SQ 10/14/16 22:00 Future Hold 11/13/16 21:20 (Tears Naturale Opth Soln) 1 drop TID EACH EYE 10/19/16 13:00 12/1/17 17:00 (Albuterol Neb) 2.5 mg Q2HR NEB PRN INH 10/19/16 09:45 11/22/16 22:09 (Melatonin) 5 mg HS PO 11/01/16 21:00 01/13/17 21:19 (Cardizem) 90 mg Q6HR PO 11/02/16 12:00 01/14/17 06:09 (Baciguent Oint) 1 applic Q12HR TOPICAL 11/18/16 11:00 01/13/17 21:20 (Peridex 0.12% Liq) 15 ml BID@08,20 MT 11/26/16 20:00 01/12/17 13:00 (Santyl Oint) 1 applic DAILY TOPICAL 11/30/16 12:00 01/13/17 17:00 (Nitroglycerin 2% Oint) 2 inch Q6H PRN TOPICAL 12/04/16 09:15 (Vasotec Inj) 1.25 mg Q6H PRN IV PUSH 12/04/16 09:15 (Imodium Liq) 2 mg UNSCH PRN PO 12/14/16 10:45 (Lactinex) 1 tab TID PO 12/14/16 18:00 01/13/17 17:04 (Pepcid) 20 mg BID PO 12/16/16 21:00 01/13/17 21:19 (Ferrous Sulfate) 325 mg BID@ PO 12/22/16 12:00 01/13/17 17:04 (Vitamin C) 500 mg BID PO 12/22/16 09:00 01/13/17 21:19 (NS Flush) 2 ml UNSCH PRN IVF 12/27/16 11:30 (Dulcolax Supp) 10 mg DAILY PRN RECTAL 12/27/16 11:30 (Colace) 100 mg BID PO 12/27/16 21:00 01/13/17 21:19 (Zofran Inj) 4 mg Q6H PRN IV PUSH 12/27/16 11:30 (Dille 10-325 Mg) 1 tab Q4H PRN PO 12/27/16 11:30 12/30/16 05:54 (Dille 10-325 Mg) 2 tab Q4H PRN PO 12/27/16 11:30 12/30/16 14:24 (Tylenol) 650 mg Q4H PRN PO 12/27/16 11:30 (Bacitracin Oint Packet) 0.9 gm DAILY TOPICAL 12/30/16 18:31 01/13/17 17:00 A/P Assessment and Plan 56-year-old male presents with intracranial bleed, was transferred from [facility]. 1. Subdural Hematoma/duraplasty status post left frontotemporal parietal craniotomy 10/08. 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 Initiated . - Continue Levetiracetam 500 mg per tube q12h. - 10/13 and 10/14 and 10/17) 10/19 left MCA territory vasospasm, status post successful verapamil treatment by IR with 20 mg verapamil - 10/17 CT brain - less hemisphere edema with herniation through left craniotomy site, improved. - Dr. Perry/neurosurgery. S/p left cranioplasty/bone flap 12/27/16. - Echocardiogram 10/14/16 revealed EF 40-45%. Septal hypokinesis. Moderate MR. Severe pulmonary hypertension with pulmonary artery pressures estimated 61 mmHg Limited Echo 11/06: LVEF 60-65%, Trivial mitral and tricuspid regurgitation, No vegetations noted. - On diltiazem's 90 mg by mouth every 6 hours and furosemide 20 mg daily. Monitor BP and if low hold meds. - neurologically stable and doing well, and continued PT and rehabilitation. - PT, OT, speech following. Patient had helmet. -Eating better. Will have dietitian for calorie count and will evaluate if we can remove feeding tube as patient it seems has adequate PO intake. Respiratory failure, S/P tracheostomy. Resolved now satting well on Room air. Monitor O2 sat, O2 supplement to keep O2 sat > 94 - S/p Trach Dr. Sullivan/Dr. Collazo 11/01 #8 [place] - CT angiogram chest/neck revealed right centrilobular bleeding likely source right bronchial artery. Repeat CT chest 11/29no visualization of active bleeding.- Resolved - 12/01 - embolization of right bronchial artery by IR- no further bleeding from tracheostomy - Redo trach 11/[address] Sullivan; down sized to uncuffed fenestrated 6 tracheostomy on 12/14 and now capped. - Albuterol/ipratropium aerosols every 6 hours with albuterol aerosols - Dr. Wilson plan is to downsize tube and probably considering tracheostomy removal - Tolerated tracheostomy capping. Has been decannulated. Tolerating room air. Now satting well on Room air, trach removed, trach site wound cultures pending, added bacitracin and wound care consulted for trach site wound. - Monitor Respiratory status Lower extremity edema improved. Ultrasound Doppler reviewed and no DVT. Patient with high risk of bleeding and is not chemoprophylaxis at this time. Continue SCDs and teds for DVT prophylaxis. Ileus- Resolved Elevated transaminases Hyperammonemia Severe protein caloric malnutrition- continue with tube feeds as tolerated. - Currently on Glucerna 1.5 goal 60 cc an hour. Consult monorail charger operator to review formula. - free water per G tube 200mL per tube q6h. - Lansoprazole 30 mg by tube daily for GI prophylaxis will change this to Pepcid - Continue bowel regimen - Reglan DC 12/13- stools amount decreased and thicker in consistency- continue to monitor - Continue PEG feeding. s/p PEG 11/12/16 - speech following for swallowing progress - Tube feeds only at night, patient has regular trach during the daytime, will order ensure pudding - Dietitian consulted to reevaluate tube feeding rate. Right occlusive subclavian, axillary and bilateral superficial cephalic thrombus - limited Echo to evaluate vegetation-neg. ID following - Digital Ischemia with necrosis involving all toes and left 2nd finger and right ringer finger- stable, conservative management - Digits have demarcated, allow auto amputation. Cardizem PO currently and 90 mg every 6 hours (for digital ischemia, Raynaud's) - Continue bacitracin twice a day to affected areas - Central line for IV access. We'll need to be started on systemic anticoagulation at some point however with recent embolization for hemoptysis holding full anticoagulation at this time. - Consult vascular surgeon . Seen by Dr Valente plan for CTA Ao runoff Stage 2 sacral ulcer - ABD dressing with [employer]- staff nurse makes sure to keep area dry. Wound care also consulted. appreciate recommendations. - Turn position every 2 hours - Out of bed to chair activity Discontinued IV fluids with Potassium, patient eating fine. Course of hospitalization complications Acute hypoxic Respiratory failure secondary to mucous plugging- Resolved Possible healthcare associated pneumonia, Septic Shock- resolved. ARDS - resolved Noncardiogenic/neurogenic pulmonary edema- resolved. Massive Hemoptysis - resolved Aspiration pneumonitis - resolved Cerebral Salt Wasting/SIADH-resolved now hypernatremic - Creatinine currently within normal limits -> resolved. - Monitor urine output Septic and cardiogenic shock- resolved. LV dysfunction secondary to SAH - persistent, now resolved Elevated troponin- secondary to SAH, unlikely to be ACS. - resolved. Pulmonary hypertension s/p PEA arrest 11/28 after ETT dislodgement, hypoxic arrest DVT prop SCD, no chemoprophylaxis secondary to risk for bleeding. The patient is eating properly asked for Dietitian will be important to reevaluate the need for the PEG tube also removed some old medicines not used anymore. Discharge Planning S/p left cranioplasty by Dr Perry neurosurgery on 12/27/16. He is fairly stable for DC when arrangements done. Pending SSI. Pl[facility] will be in pen[facility] facility or long-term care. CM following for DC plan. Eating better. Will have dietitian for calorie count and will evaluate if we can remove feeding tube as patient it seems has adequate PO intake. Brayden Candelario MD Jan 14, 2017 08:22
[2017-01-14] MEDS: ARTIFICIAL TEARS OPTH SOLN 15 ML BTL EACH EYE SCH ×3 (08:33→18:00)
[2017-01-14] MEDS: LACTOBACILLUS ACIDOPHILUS TAB PO SCH ×3 (08:35→17:51)
[2017-01-14] MEDS: BACITRACIN TOP OINT 15 GM TUBE TOPICAL SCH ×2 (08:36→21:00)
[2017-01-14] MEDS: FAMOTIDINE 20 MG TAB PO SCH ×2 (08:36→21:16)
[2017-01-14] MEDS: DOCUSATE SODIUM 100 MG CAP PO SCH ×2 (08:36→21:00)
[2017-01-14] MEDS: COLLAGENASE OINT 30 GM TUBE TOPICAL SCH (08:36)
[2017-01-14] MEDS: ASCORBIC ACID 500 MG TAB PO SCH ×2 (08:36→21:16)
[2017-01-14] MEDS: BACITRACIN OINT 0.9 GM PKT TOPICAL SCH (08:36)
[2017-01-14 09:02] VITALS: BP 110/68; PULSE 81; RESP 20; TEMP 98.4; O2SAT 96
[2017-01-14 11:46] VITALS: BP 117/79; PULSE 86; RESP 20; TEMP 97.9; O2SAT 97
[2017-01-14] MEDS: FERROUS SULFATE 325 MG (65 MG ELEMENTAL IRON) TAB PO SCH ×2 (12:16→17:51)
[2017-01-14 16:47] VITALS: BP 117/70; PULSE 82; RESP 20; TEMP 97.8; O2SAT 98
[2017-01-14 20:00] VITALS: BP 129/63; PULSE 95; RESP 18; TEMP 98.9; O2SAT 94
[2017-01-14] MEDS: MELATONIN 5 MG TAB PO SCH (21:16)
[2017-01-15] VITALS: BP 127/84; PULSE 94; RESP 20; TEMP 97.3; O2SAT 95
[2017-01-15] MEDS: DILTIAZEM HCL 90 MG TAB PO SCH ×4 (00:21→17:35)
[2017-01-15 04:00] VITALS: BP 120/80; PULSE 83; RESP 18; TEMP 97; O2SAT 97
[2017-01-15 08:00] VITALS: BP 118/78; PULSE 82; RESP 18; TEMP 97.9; O2SAT 97
[2017-01-15] MEDS: LACTOBACILLUS ACIDOPHILUS TAB PO SCH ×3 (09:24→17:35)
[2017-01-15] MEDS: DOCUSATE SODIUM 100 MG CAP PO SCH ×2 (09:24→20:44)
[2017-01-15] MEDS: FAMOTIDINE 20 MG TAB PO SCH ×2 (09:24→20:45)
[2017-01-15] MEDS: COLLAGENASE OINT 30 GM TUBE TOPICAL SCH (09:25)
[2017-01-15] MEDS: ARTIFICIAL TEARS OPTH SOLN 15 ML BTL EACH EYE SCH ×3 (09:25→17:35)
[2017-01-15] MEDS: BACITRACIN OINT 0.9 GM PKT TOPICAL SCH (09:25)
[2017-01-15] MEDS: ASCORBIC ACID 500 MG TAB PO SCH ×2 (09:25→20:44)
[2017-01-15] MEDS: CHLORHEXIDINE 0.12% (ORAL KIT) 15 ML CUP MT SCH ×2 (09:25→20:00)
[2017-01-15] MEDS: BACITRACIN TOP OINT 15 GM TUBE TOPICAL SCH ×2 (09:25→20:45)
--- NOTE | 2017-01-15 10:43 | HHI.PR ---
Subjective Remarks Stable discussed with nurse Miss Koehler awaiting for Dietitian if the patient is eating properly to remove PEG tube, is not needed anymore. no nausea, vomit or diarrhea. Objective Vital Signs Date Time Temp Pulse Resp B/P (MAP) Pulse Ox O2 Delivery O2 Flow Rate FiO2 01/15/17 08:00 97.9 82 18 118/78 (91) 97 01/15/17 04:00 97.0 83 18 120/80 (93) 97 01/15/17 00:00 97.3 94 20 127/84 (98) 95 01/14/17 20:00 98.9 95 18 129/63 (85) 94 01/14/17 16:47 97.8 82 20 117/70 (86) 98 01/14/17 11:46 97.9 86 20 117/79 (92) 97 I/O 01/14/17 01/14/17 01/14/17 01/15/17 01/15/17 01/15/17 07:00 15:00 23:00 07:00 15:00 23:00 Intake Total 720 ml Output Total 400 ml 850 ml 975 ml Balance -400 ml -130 ml -975 ml Intake Oral 720 ml Output Urine Total 400 ml 850 ml 975 ml # Bowel Movements 0 1 Result Diagram: 01/11/17 0507 01/11/17 0507 Imaging Last Impressions Lower Extremity Ultrasound 12/29/16 0000 Signed Impressions: Service Date/Time: December 13:07 - CONCLUSION: No sonographic or Doppler findings of deep venous thrombosis. Joni Shelton MD Carotid Artery Ultrasound 12/27/16 0000 Signed Impressions: Service Date/Time: Tuesday, December 27, 2016 17:19 - CONCLUSION: Mild plaque at the carotid bulb regions bilaterally without a significant stenosis seen. Yosvany Alfaro MD Aorta w/Runoff CTA 12/27/16 0000 Signed Impressions: Service Date/Time: Wednesday, December 28, 2016 17:28 - CONCLUSION: Atherosclerotic calcification seen throughout the arterial system without an area of significant stenosis. The trifurcation vessels are only faintly opacified. Yosvany Alfaro MD Modified Barium Swallow 12/23/16 0000 Signed Impressions: Service Date/Time: Friday, December 23, 2016 09:11 - CONCLUSION: Negative for aspiration.. Remington Woodward MD FACR Chest X-Ray 12/04/16 1753 Signed Impressions: Service Date/Time: Sunday, December 04, 2016 18:55 - CONCLUSION: 1. Placement of left central line tip in superior vena cava. No pneumothorax. Mild basilar airspace disease. Small right effusion. Gurwinder Root MD Upper Extremity Ultrasound 12/04/16 0000 Signed Impressions: Service Date/Time: Sunday, December 04, 2016 15:37 - CONCLUSION: 1. Positive for occlusive deep venous thrombosis in the right axillary and subclavian vein. Occlusive superficial thrombus in bilateral cephalic veins. Gurwinder Root MD Angiography 12/01/16 0000 Signed Impressions: Service Date/Time: November 14:02 - CONCLUSION: 1. Right side up on her hemorrhage with angiography of the right bronchial artery revealing no source of active hemorrhage. Empiric embolization was performed. Santos Crockett Jr., MD Chest CT 11/28/16 0000 Signed Impressions: Service Date/Time: Tuesday, November 29, 2016 05:13 - CONCLUSION: 1. Patchy alveolar disease characteristic of edema or pneumonia. 2. Severe emphysema 3. Gastrojejunostomy tube looped in the stomach Harvey Morejon MD Chest/Thorax CTA 11/26/16 0000 Signed Impressions: Service Date/Time: Saturday, November 26, 2016 20:18 - CONCLUSION: 1. Extensive filling defects within the right central bronchial tree characteristic of endobronchial hemorrhage. 2. Consolidating airspace disease in the right upper lobe and right lower lobe characteristic of hemorrhage and post obstructive lung consolidation. 3. Right bronchial artery is identified extending to the central right bronchial region 4. Advanced COPD. Nasir Amanda MD Abdomen X-Ray 11/19/16 0600 Signed Impressions: Service Date/Time: Saturday, November 19, 2016 02:44 - CONCLUSION: Unchanged bowel gas pattern potentially relating to an ileus. Santos Crockett Jr., MD Transcranial Doppler Study Complete 10/20/16599 Signed Impressions: Service Date/Time: October 07:54 - CONCLUSION: Slight interval elevation of flow velocity measurements and ratio on the left Yosvany Polk MD Liver Ultrasound 10/19/16 0000 Signed Impressions: Service Date/Time: Wednesday, October 19, 2016 11:20 - CONCLUSION: 1. Sludge filled gallbladder with thickened wall. 2. Moderate size bilateral pleural effusions and mild upper abdominal ascites. Santos Vazquez MD Cerebral Arteriogram 10/19/16 0000 Signed Impressions: Service Date/Time: Wednesday, October 19, 2016 12:47 - CONCLUSION: Uncomplicated cerebral arteriography with spasmolytic therapy as described in detail above. Yosvany Polk MD Head CT 10/17/16 0000 Signed Impressions: Service Date/Time: Monday, October 17, 2016 15:06 - CONCLUSION: Ventricles are slightly larger without ventriculostomy. Edema in the left hemisphere the brain herniating through the operative site. Remington Woodward MD FACR Infusion Non-thrombolysis 10/14/16 1103 Signed Impressions: Service Date/Time: Friday, October 14, 2016 10:21 - CONCLUSION: 1. Uncomplicated infusion for spasmolysis Harvey Morejon MD Neck CTA 10/07/16 0000 Signed Impressions: Service Date/Time: Friday, October 07, 2016 15:03 - CONCLUSION: 1. Mild carotid bulb atherosclerotic calcification bilaterally. However, no significant stenosis is present in either internal carotid artery. 2. Paranasal sinus mucoperiosteal thickening. 3. Please refer to brain CTA report for description of the intracranial findings. Yosvany Ramirez MD Head CTA 10/07/16 0000 Signed Impressions: Service Date/Time: Friday, October 07, 2016 15:03 - CONCLUSION: 1. 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 2. Large left subdural hematoma measuring 1.3 cm in depth with a significant, 1.6 cm left to right subfalcine shift. Joni Shelton MD Procedures 10/13 Four-vessel cerebral angiography with verapamil treatment of vasospasm Status post left frontotemporal parietal craniectomy 10/08 for evacuation subdural hematoma/duraplasty. 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 parietal cranioplasty with replacement of skull flap by Dr Perry neurosurgery on 12/27/16 Other Results Laboratory Tests Test 10/11/16 23:50 10/14/16 10:00 10/15/16 02:10 10/15/16 03:40 Nasal Screen MRSA (PCR) MRSA NOT DETECTED Urine Osmolality 409 MOSM/KG Serum Osmolality 279 MOSM/KG Procalcitonin 6.86 ng/mL Random Cortisol 35.0 MCG/DL Test 10/16/16 01:07 10/18/16 05:45 10/19/16 00:00 10/19/16 12:00 Troponin I 2.47 NG/ML Protein Corrected Calcium 7.9 MG/DL Total Creatine Kinase 1073 U/L Creatine Kinase MB 14.1 NG/ML Creatine Kinase MB % 1.3 % Thyroid Stimulating Hormone 3rd Gen 0.256 uIU/ML Urine Amorphous Sediment RARE Urine Random Sodium 49 MEQ/L Test 10/20/16 10:40 10/20/16 13:00 10/21/16 04:20 10/21/16 14:30 Phenytoin (Dilantin) Level 6.0 MCG/ML Blood Urea Nitrogen 19 MG/DL Creatinine 0.53 MG/DL Random Glucose 214 MG/DL Total Protein 5.9 GM/DL Albumin 1.5 GM/DL Calcium Level 7.6 MG/DL Phosphorus Level 0.9 MG/DL Magnesium Level 2.2 MG/DL Alkaline Phosphatase 137 U/L Aspartate Amino Transf (AST/SGOT) 112 U/L Alanine Aminotransferase (ALT/SGPT) 195 U/L Total Bilirubin 0.4 MG/DL Direct Bilirubin 0.2 MG/DL Sodium Level 146 MEQ/L Potassium Level 2.7 MEQ/L Chloride Level 111 MEQ/L Carbon Dioxide Level 28.3 MEQ/L Indirect Bilirubin 0.2 MG/DL Lactic Acid Level 1.4 mmol/L Amylase Level 29 U/L Lipase 76 U/L Free Thyroxine 0.70 NG/DL Free Triiodothyronine (T3) pg/dL 0.90 PG/ML Test 10/31/16 05:08 11/02/16 18:00 11/04/16 01:40 11/04/16 05:00 B-Type Natriuretic Peptide 765 PG/ML Stool C. difficile Toxin (PCR) NEGATIVE Stl C. difficile Toxin Epiderm 027 PRESUMPTIVE NEGATIVE Vancomycin Level Trough 25.2 MCG/ML Ammonia 37 MCMOL/L Test 11/05/16 15:00 11/14/16 11:40 11/20/16 05:17 11/22/16 05:24 Random Vancomycin Level 7.1 COMMENT Urine Color YELLOW Urine Turbidity CLEAR Urine pH 5.5 Urine Specific [place]ach[place] 1.027 Urine Protein 30 mg/dL Urine Glucose (UA) NEG mg/dL Urine Ketones NEG mg/dL Urine Occult Blood SMALL Urine Nitrite NEG Urine Bilirubin NEG Urine Urobilinogen LESS THAN 2.0 MG/DL Urine Leukocyte Esterase NEG Urine RBC 8 /hpf Urine WBC 4 /hpf Urine Squamous Epithelial Cells 3 /hpf Urine Calcium Oxalate Crystals RARE /hpf Urine Bacteria RARE /hpf Urine Hyaline Casts 1 /lpf Urine Mucus FEW /lpf Microscopic Urinalysis Comment CULT NOT INDICATED Hematology Comments Platelet Estimate HIGH Platelet Morphology Comment NORMAL Red Cell Morphology Comment NORMAL Test 11/25/16 08:17 11/26/16 16:50 11/28/16 23:05 12/01/16 13:48 Differential Total Cells Counted 100 Neutrophils % (Manual) 75 % Band Neutrophils % 10 % Lymphocytes % 8 % Monocytes % 6 % Basophils % 1 % Neutrophils # (Manual) 9.9 TH/MM3 Toxic Granulation 1+ Fibrinogen 382 mg/dL Blood Gas Puncture Site RT RADIAL Blood Gas Patient Temperature 98.6 Blood Gas HCO3 29 mmol/L Blood Gas Base Excess 4.2 mmol/L Blood Gas Oxygen Saturation 84 % Arterial Blood pH 7.36 Arterial Blood Partial Pressure CO2 53 mmHg Arterial Blood Partial Pressure O2 56 mmHg Arterial Blood Oxygen Content 9.5 Vol % Arterial Blood Carboxyhemoglobin 2.0 % Arterial Blood Methemoglobin 0.9 % Blood Gas Hemoglobin 8.0 G/DL Oxygen Delivery Device VENT Blood Gas Ventilator Setting SEE COMMENTS Blood Gas Inspired Oxygen 60 % Prothrombin Time 11.1 SEC Prothromb Time International Ratio 1.0 RATIO Activated Partial Thromboplast Time 28.3 SEC Test 12/02/16 04:32 12/14/16 15:00 12/22/16 05:25 01/11/17 05:07 Blood Urea Nitrogen 13 MG/DL 32 MG/DL Creatinine 0.28 MG/DL 0.54 MG/DL Random Glucose 116 MG/DL 88 MG/DL Total Protein 5.0 GM/DL Albumin 1.4 GM/DL Calcium Level 7.7 MG/DL 8.9 MG/DL Phosphorus Level 3.1 MG/DL 4.0 MG/DL Magnesium Level 1.9 MG/DL 1.8 MG/DL Alkaline Phosphatase 70 U/L Aspartate Amino Transf (AST/SGOT) LESS THAN 3 U/L Alanine Aminotransferase (ALT/SGPT) 12 U/L Total Bilirubin 0.4 MG/DL Sodium Level 135 MEQ/L 138 MEQ/L Potassium Level 3.7 MEQ/L 4.7 MEQ/L Chloride Level 101 MEQ/L 106 MEQ/L Carbon Dioxide Level 26.1 MEQ/L 25.2 MEQ/L Prealbumin 19 MG/DL Iron Level 51 MCG/DL Total Iron Binding Capacity 223 MCG/DL Percent Iron Saturation 22.9 % White Blood Count 7.4 TH/MM3 Red Blood Count 2.93 MIL/MM3 Hemoglobin 9.2 GM/DL Hematocrit 27.5 % Mean Corpuscular Volume 93.8 FL Mean Corpuscular Hemoglobin 31.4 PG Mean Corpuscular Hemoglobin Concent 33.5 % Red Cell Distribution Width 16.8 % Platelet Count 239 TH/MM3 Mean Platelet Volume 9.4 FL Neutrophils (%) (Auto) 41.2 % Lymphocytes (%) (Auto) 44.0 % Monocytes (%) (Auto) 7.8 % Eosinophils (%) (Auto) 5.6 % Basophils (%) (Auto) 1.4 % Neutrophils # (Auto) 3.0 TH/MM3 Lymphocytes # (Auto) 3.2 TH/MM3 Monocytes # (Auto) 0.6 TH/MM3 Eosinophils # (Auto) 0.4 TH/MM3 Basophils # (Auto) 0.1 TH/MM3 CBC Comment DIFF FINAL Differential Comment Anion Gap 7 MEQ/L Estimat Glomerular Filtration Rate 159 ML/MIN Objective Remarks GENERAL: Awake and alert, oriented, no acute distress. SKIN: All toes with digital ischemia, left 2nd finger and right ringer finger with distal digit ischemia. Stage 1-2 decubitus ulcer NECK: Bandage noted at neck in covering trach site c/d/i. CARDIOVASCULAR: Regular rate and rhythm. RESPIRATORY: No accessory muscle use. Clear to auscultation. Breath sounds equal bilaterally. GASTROINTESTINAL: Abdomen soft, non-tender, nondistended. Soft PEG in place, site c/d/i MUSCULOSKELETAL: Extremities without clubbing, cyanosis. NEUROLOGICAL: Alert and oriented x3, pleasant. Speech IS soft with short sentences. Medications and IVs Current Medications Medications (Trade) Dose Ordered Sig/Adali Route Start Time Stop Time Status Last Admin (Heparin Inj) 5,000 units Q8HR SQ 10/14/16 22:00 Future Hold 11/13/16 21:20 (Tears Naturale Opth Soln) 1 drop TID EACH EYE 10/19/16 13:00 01/13/17 17:00 (Albuterol Neb) 2.5 mg Q2HR NEB PRN INH 10/19/16 09:45 11/22/16 22:09 (Melatonin) 5 mg HS PO 11/01/16 21:00 01/14/17 21:16 (Cardizem) 90 mg Q6HR PO 11/02/16 12:00 01/15/17 05:06 (Baciguent Oint) 1 applic Q12HR TOPICAL 11/18/16 11:00 01/15/17 09:25 (Peridex 0.12% Liq) 15 ml BID@08,20 MT 11/26/16 20:00 01/15/17 09:25 (Santyl Oint) 1 applic DAILY TOPICAL 11/30/16 12:00 01/14/17 08:36 (Nitroglycerin 2% Oint) 2 inch Q6H PRN TOPICAL 12/04/16 09:15 (Vasotec Inj) 1.25 mg Q6H PRN IV PUSH 12/04/16 09:15 (Imodium Liq) 2 mg UNSCH PRN PO 12/14/16 10:45 (Lactinex) 1 tab TID PO 12/14/16 18:00 01/15/17 09:24 (Pepcid) 20 mg BID PO 12/16/16 21:00 01/15/17 09:24 (Ferrous Sulfate) 325 mg BID@ PO 12/22/16 12:00 01/14/17 17:51 (Vitamin C) 500 mg BID PO 12/22/16 09:00 01/15/17 09:25 (NS Flush) 2 ml UNSCH PRN IVF 12/27/16 11:30 (Dulcolax Supp) 10 mg DAILY PRN RECTAL 12/27/16 11:30 (Colace) 100 mg BID PO 12/27/16 21:00 01/15/17 09:24 (Zofran Inj) 4 mg Q6H PRN IV PUSH 12/27/16 11:30 ([place] 10-325 Mg) 1 tab Q4H PRN PO 12/27/16 11:30 12/30/16 05:54 ([place] 10-325 Mg) 2 tab Q4H PRN PO 12/27/16 11:30 12/30/16 14:24 (Tylenol) 650 mg Q4H PRN PO 12/27/16 11:30 (Bacitracin Oint Packet) 0.9 gm DAILY TOPICAL 12/30/16 18:31 01/15/17 09:25 A/P Assessment and Plan 56-year-old male presents with intracranial bleed, was transferred from [facility]. 1. Subdural Hematoma/duraplasty status post left frontotemporal parietal craniotomy 10/08. 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 Initiated . - Continue Levetiracetam 500 mg per tube q12h. - 10/13 and 10/14 and 10/17) 10/19 left MCA territory vasospasm, status post successful verapamil treatment by IR with 20 mg verapamil - 10/17 CT brain - less hemisphere edema with herniation through left craniotomy site, improved. - Dr. Perry/neurosurgery. S/p left cranioplasty/bone flap 12/27/16. - Echocardiogram 10/14/16 revealed EF 40-45%. Septal hypokinesis. Moderate MR. Severe pulmonary hypertension with pulmonary artery pressures estimated 61 mmHg Limited Echo 11/06: LVEF 60-65%, Trivial mitral and tricuspid regurgitation, No vegetations noted. - On diltiazem's 90 mg by mouth every 6 hours and furosemide 20 mg daily. Monitor BP and if low hold meds. - neurologically stable and doing well, and continued PT and rehabilitation. - PT, OT, speech following. Patient had helmet. -Eating better. Will have dietitian for calorie count and will evaluate if we can remove feeding tube as patient it seems has adequate PO intake. Respiratory failure, S/P tracheostomy. Resolved now satting well on Room air. Monitor O2 sat, O2 supplement to keep O2 sat > 94 - S/p Trach Dr. Sullivan/Dr. Collazo 11/01 #8 [facility] - CT angiogram chest/neck revealed right centrilobular bleeding likely source right bronchial artery. Repeat CT chest 11/29no visualization of active bleeding.- Resolved - 12/01 - embolization of right bronchial artery by IR- no further bleeding from tracheostomy - Redo trach 11/[address] Sullivan; down sized to uncuffed fenestrated 6 tracheostomy on 12/14 and now capped. - Albuterol/ipratropium aerosols every 6 hours with albuterol aerosols - Dr. Wilson plan is to downsize tube and probably considering tracheostomy removal - Tolerated tracheostomy capping. Has been decannulated. Tolerating room air. Now satting well on Room air, trach removed, trach site wound cultures pending, added bacitracin and wound care consulted for trach site wound. - Monitor Respiratory status Lower extremity edema improved. Ultrasound Doppler reviewed and no DVT. Patient with high risk of bleeding and is not chemoprophylaxis at this time. Continue SCDs and teds for DVT prophylaxis. Ileus- Resolved Elevated transaminases Hyperammonemia Severe protein caloric malnutrition- continue with tube feeds as tolerated. - Currently on Glucerna 1.5 goal 60 cc an hour. Consult wireless sales consultant to review formula. - free water per G tube 200mL per tube q6h. - Lansoprazole 30 mg by tube daily for GI prophylaxis will change this to Pepcid - Continue bowel regimen - Reglan DC 12/13- stools amount decreased and thicker in consistency- continue to monitor - Continue PEG feeding. s/p PEG 11/12/16 - speech following for swallowing progress - Tube feeds only at night, patient has regular trach during the daytime, will order ensure pudding - Dietitian consulted to reevaluate tube feeding rate. Right occlusive subclavian, axillary and bilateral superficial cephalic thrombus - limited Echo to evaluate vegetation-neg. ID following - Digital Ischemia with necrosis involving all toes and left 2nd finger and right ringer finger- stable, conservative management - Digits have demarcated, allow auto amputation. Cardizem PO currently and 90 mg every 6 hours (for digital ischemia, Raynaud's) - Continue bacitracin twice a day to affected areas - Central line for IV access. We'll need to be started on systemic anticoagulation at some point however with recent embolization for hemoptysis holding full anticoagulation at this time. - Consult vascular surgeon . Seen by Dr Valente plan for CTA Ao runoff Stage 2 sacral ulcer - ABD dressing with [employer]- staff nurse makes sure to keep area dry. Wound care also consulted. appreciate recommendations. - Turn position every 2 hours - Out of bed to chair activity Discontinued IV fluids with Potassium, patient eating fine. Course of hospitalization complications Acute hypoxic Respiratory failure secondary to mucous plugging- Resolved Possible healthcare associated pneumonia, Septic Shock- resolved. ARDS - resolved Noncardiogenic/neurogenic pulmonary edema- resolved. Massive Hemoptysis - resolved Aspiration pneumonitis - resolved Cerebral Salt Wasting/SIADH-resolved now hypernatremic - Creatinine currently within normal limits -> resolved. - Monitor urine output Septic and cardiogenic shock- resolved. LV dysfunction secondary to SAH - persistent, now resolved Elevated troponin- secondary to SAH, unlikely to be ACS. - resolved. Pulmonary hypertension s/p PEA arrest 11/28 after ETT dislodgement, hypoxic arrest DVT prop SCD, no chemoprophylaxis secondary to risk for bleeding. The patient is eating properly asked for Dietitian will be important to reevaluate the need for the PEG tube also removed some old medicines not used anymore. Discharge Planning S/p left cranioplasty by Dr Perry neurosurgery on 12/27/16. He is fairly stable for DC when arrangements done. Pending SSI. [facility] in [facility] facility or long-term care. CM following for DC plan. Eating better. Will have dietitian for calorie count and will evaluate if we can remove feeding tube as patient it seems has adequate PO intake. Brayden Candelario MD Jan 15, 2017 10:43
[2017-01-15 12:00] VITALS: BP 116/78; PULSE 84; RESP 18; TEMP 98.2; O2SAT 98
[2017-01-15] MEDS: FERROUS SULFATE 325 MG (65 MG ELEMENTAL IRON) TAB PO SCH ×2 (12:45→17:35)
[2017-01-15 16:00] VITALS: BP 117/76; PULSE 87; RESP 18; TEMP 97.7; O2SAT 98
[2017-01-15 20:00] VITALS: BP 126/75; PULSE 84; RESP 18; TEMP 98; O2SAT 97
[2017-01-15] MEDS: MELATONIN 5 MG TAB PO SCH (20:45)
[2017-01-16] VITALS: BP 131/78; PULSE 90; RESP 20; TEMP 98.7; O2SAT 98
[2017-01-16] MEDS: DILTIAZEM HCL 90 MG TAB PO SCH ×4 (00:45→17:04)
[2017-01-16 04:00] VITALS: BP 127/66; PULSE 78; RESP 18; TEMP 97.2; O2SAT 98
[2017-01-16] MEDS: CHLORHEXIDINE 0.12% (ORAL KIT) 15 ML CUP MT SCH ×2 (08:00→20:00)
[2017-01-16 08:33] VITALS: BP 126/83; PULSE 81; RESP 16; TEMP 98.4; O2SAT 98
--- NOTE | 2017-01-16 08:51 | HHI.PR ---
Subjective Remarks resting comfortably with no distress. denies pain. no new complaints. Objective Vitals Vital Signs Date Time Temp Pulse Resp B/P (MAP) Pulse Ox O2 Delivery O2 Flow Rate FiO2 01/16/17 08:33 98.4 81 16 126/83 (97) 98 01/16/17 04:00 97.2 78 18 127/66 (86) 98 01/16/17 00:00 98.7 90 20 131/78 (95) 98 01/15/17 20:00 98.0 84 18 126/75 (92) 97 01/15/17 16:00 97.7 87 18 117/76 (90) 98 01/15/17 12:00 98.2 84 18 116/78 (91) 98 I/O 01/15/17 01/15/17 01/15/17 01/16/17 01/16/17 01/16/17 07:00 15:00 23:00 07:00 15:00 23:00 Intake Total 1000 ml Output Total 975 ml 250 ml 1050 ml 1400 ml Balance -975 ml -250 ml -50 ml -1400 ml Intake Oral 1000 ml Output Urine Total 975 ml 250 ml 1050 ml 1400 ml # Bowel Movements 1 Imaging Last Impressions Lower Extremity Ultrasound 12/29/16 0000 Signed Impressions: Service Date/Time: December 13:07 - CONCLUSION: No sonographic or Doppler findings of deep venous thrombosis. Joni Shelton MD Carotid Artery Ultrasound 12/27/16 0000 Signed Impressions: Service Date/Time: Tuesday, December 27, 2016 17:19 - CONCLUSION: Mild plaque at the carotid bulb regions bilaterally without a significant stenosis seen. Yosvany Alfaro MD Aorta w/Runoff CTA 12/27/16 0000 Signed Impressions: Service Date/Time: Wednesday, December 28, 2016 17:28 - CONCLUSION: Atherosclerotic calcification seen throughout the arterial system without an area of significant stenosis. The trifurcation vessels are only faintly opacified. Yosvany Alfaro MD Modified Barium Swallow 12/23/16 0000 Signed Impressions: Service Date/Time: Friday, December 23, 2016 09:11 - CONCLUSION: Negative for aspiration.. Remington Woodward MD FACR Chest X-Ray 12/04/16 [id number] Signed Impressions: Service Date/Time: Sunday, December 04, 2016 18:55 - CONCLUSION: 1. Placement of left central line tip in superior vena cava. No pneumothorax. Mild basilar airspace disease. Small right effusion. Gurwinder Root MD Upper Extremity Ultrasound 12/04/16 0000 Signed Impressions: Service Date/Time: Sunday, December 04, 2016 15:37 - CONCLUSION: 1. Positive for occlusive deep venous thrombosis in the right axillary and subclavian vein. Occlusive superficial thrombus in bilateral cephalic veins. Gurwinder Root MD Angiography 12/01/16 0000 Signed Impressions: Service Date/Time: November 14:02 - CONCLUSION: 1. Right side up on her hemorrhage with angiography of the right bronchial artery revealing no source of active hemorrhage. Empiric embolization was performed. Santos Crockett Jr., MD Chest CT 11/28/16 0000 Signed Impressions: Service Date/Time: Tuesday, November 29, 2016 05:13 - CONCLUSION: 1. Patchy alveolar disease characteristic of edema or pneumonia. 2. Severe emphysema 3. Gastrojejunostomy tube looped in the stomach Harvey Morejon MD Chest/Thorax CTA 11/26/16 0000 Signed Impressions: Service Date/Time: Saturday, November 26, 2016 20:18 - CONCLUSION: 1. Extensive filling defects within the right central bronchial tree characteristic of endobronchial hemorrhage. 2. Consolidating airspace disease in the right upper lobe and right lower lobe characteristic of hemorrhage and post obstructive lung consolidation. 3. Right bronchial artery is identified extending to the central right bronchial region 4. Advanced COPD. Nasir Amanda MD Abdomen X-Ray 11/19/16599 Signed Impressions: Service Date/Time: Saturday, November 19, 2016 02:44 - CONCLUSION: Unchanged bowel gas pattern potentially relating to an ileus. Santos Crockett Jr., MD Transcranial Doppler Study Complete 10/20/16599 Signed Impressions: Service Date/Time: October 07:54 - CONCLUSION: Slight interval elevation of flow velocity measurements and ratio on the left Yosvany Polk MD Liver Ultrasound 10/19/16 Signed Impressions: Service Date/Time: Wednesday, October 19, 2016 11:20 - CONCLUSION: 1. Sludge filled gallbladder with thickened wall. 2. Moderate size bilateral pleural effusions and mild upper abdominal ascites. Santos Vazquez MD Cerebral Arteriogram 10/19/16 0000 Signed Impressions: Service Date/Time: Wednesday, October 19, 2016 12:47 - CONCLUSION: Uncomplicated cerebral arteriography with spasmolytic therapy as described in detail above. Yosvany Polk MD Head CT 10/17/16 0000 Signed Impressions: Service Date/Time: Monday, October 17, 2016 15:06 - CONCLUSION: Ventricles are slightly larger without ventriculostomy. Edema in the left hemisphere the brain herniating through the operative site. Remington Woodward MD FACR Infusion Non-thrombolysis 10/14/16 1103 Signed Impressions: Service Date/Time: Friday, October 14, 2016 10:21 - CONCLUSION: 1. Uncomplicated infusion for spasmolysis Harvey Morejon MD Neck CTA 10/07/16 0000 Signed Impressions: Service Date/Time: Friday, October 07, 2016 15:03 - CONCLUSION: 1. Mild carotid bulb atherosclerotic calcification bilaterally. However, no significant stenosis is present in either internal carotid artery. 2. Paranasal sinus mucoperiosteal thickening. 3. Please refer to brain CTA report for description of the intracranial findings. Yosvany Ramirez MD Head CTA 10/07/16 0000 Signed Impressions: Service Date/Time: Friday, October 07, 2016 15:03 - CONCLUSION: 1. 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 2. Large left subdural hematoma measuring 1.3 cm in depth with a significant, 1.6 cm left to right subfalcine shift. Joni Shelton MD Objective Remarks GENERAL: This is a well-nourished, well-developed patient, in no apparent distress. CARDIOVASCULAR: Regular rate and regular rhythm without murmurs, gallops, or rubs. RESPIRATORY: Clear to auscultation. Breath sounds equal bilaterally. No wheezes , rales, or rhonchi. GASTROINTESTINAL: Abdomen soft, non-tender, nondistended. Normal, active bowel sounds MUSCULOSKELETAL: Extremities without clubbing, cyanosis, or edema. NEURO: awake and alert. Procedures 10/13 Four-vessel cerebral angiography with verapamil treatment of vasospasm Status post left frontotemporal parietal craniectomy 10/08 for evacuation subdural hematoma/duraplasty. 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 parietal cranioplasty with replacement of skull flap by Dr Perry neurosurgery on 12/27/16 Medications and IVs Current Medications Iohexol (Omnipaque 350 Inj) 100 ml STK-MED ONCE IVCONTRAST Last administered on 10/07/16 14:21; Start 10/07/16 at 14:21; Stop 10/07/16 at 15:21; Status DC Mannitol 50 ml @ As Directed STK-MED ONCE .ROUTE ; Start 10/07/16 at 15:25; Stop 10/07/16 at 15:26; Status DC Propofol 0 ml @ As Directed STK-MED ONCE .ROUTE ; Start 10/07/16 at 15:25; Stop 10/07/16 at 15:26; Status DC Levetriacetam (Keppra Inj) 1,000 mg STK-MED ONCE IV Last administered on 18:30; Start 10/07/16 at 15:27; Stop 10/07/16 at 15:28; Status DC Mannitol (Mannitol Inj) 50 gm ONCE ONCE IV Last administered on 10/13/16 21: 00; Start 10/07/16 at 15:30; Stop 10/07/16 at 15:31; Status DC Nicardipine HCl 25 mg/Sodium Chloride 260 ml @ 52 mls/hr Q5H PRN IV Blood pressure management; Start 10/07/16 at 15:40; Stop 10/14/16 at 21:02; Status DC Propofol 100 ml @ 0 mls/hr Q0M PRN IV Ordered RASS Last administered on 23:01; Start 10/07/16 at 15:40; Stop 10/07/16 at 23:16; Status DC Sodium Chloride 1,000 ml @ 75 mls/hr [id number] IV ; Start 10/07/16 at 16:08; Stop 10/07/16 at 18:34; Status DC Sodium Chloride (NS Flush) 2 ml UNSCH PRN IV FLUSH FLUSH AFTER USING IV ACCESS ; Start 10/07/16 at 16:15; Stop 10/07/16 at 18:40; Status DC Sodium Chloride (NS Flush) 2 ml BID IV FLUSH ; Start 10/07/16 at 21:00; Stop at 21:00; Status DC Acetaminophen (Tylenol) 650 mg Q6H PRN PO PAIN 1-10 AND/OR FEVER >101F; Start 10/07/16 at 16:15; Stop 10/07/16 at 19:04; Status DC Albuterol/ Ipratropium (Duoneb Neb) 1 ampule Q6HR NEB NEB Last administered on 10/11/16 15:16; Start 10/07/16 at 22:00; Stop 10/11/16 at 21:59; Status DC Albuterol/ Ipratropium (Duoneb Neb) 1 ampule Q4HR NEB PRN INH SHORTNESS OF BREATH Last administered on 10/14/16 19:33; Start 10/07/16 at 16:15; Stop at 09:43; Status DC Chlorhexidine Gluconate (Peridex 0.12% Liq) 15 ml BID@08,20 MT Last administered on 11/28/16 08:00; Start 10/07/16 at 20:00; Stop 11/28/16 at 11: 18; Status DC Pantoprazole Sodium (Protonix Inj) 40 mg DAILY IV ; Start 10/08/16 at 09:00; Stop 10/08/16 at 09:00; Status DC Miscellaneous Information 1 [id number] ; Start 10/07/16 at 16:15; Stop 10/19/16 at 12:07; Status DC Chlorhexidine Gluconate (Chlorhexidine 2% Cloth) Taper DAILY@04 TOP Last administered on 10/19/16 03:13; Start 10/08/16 at 04:00; Stop 10/19/16 at 12:07; Status DC Chlorhexidine Gluconate (Chlorhexidine 2% Cloth) 3 pack UNSCH PRN TOP HYGIENIC CARE; Start 10/07/16 at 16:15; Stop 10/19/16 at 12:07; Status DC Insulin Aspart (NovoLOG SUPPLEMENTAL SCALE) 1 Q6HR SQ Last administered on 06:40; Start 10/07/16 at 18:00; Stop 10/20/16 at 09:23; Status DC Propofol 100 ml @ 0 mls/hr Q0M PRN IV SEDATION; Start 10/07/16 at 16:08; Status UNV Nimodipine (Nimotop) 60 mg Q4HR OG-TUBE Last administered on 10/12/16 15:18; Start 10/07/16 at 20:00; Stop 10/12/16 at 23:47; Status DC Verapamil HCl (Isoptin Inj) 10 mg STK-MED ONCE .ROUTE ; Start 10/07/16 at 16:45 ; Stop 10/07/16 at 16:46; Status DC Nitroglycerin (Nitroglycerin 2% Oint) 1 inch STK-MED ONCE .ROUTE ; Start at 16:55; Stop 10/07/16 at 16:56; Status DC Heparin Sodium (Porcine) (Heparin Inj) 10,000 units STK-MED ONCE .ROUTE ; Start 10/07/16 at 16:56; Stop 10/07/16 at 16:57; Status DC Potassium Chloride/Sodium Chloride 1,000 ml @ 100 mls/hr Q10H IV Last administered on 10/14/16 07:08; Start 10/07/16 at 18:20; Stop 10/14/16 at 21:02; Status DC IV Flush (NS Flush) 2 ml UNSCH PRN IVF FLUSH AFTER USING IV ACCESS; Start 10/07 at 18:30; Stop 10/19/16 at 12:09; Status DC IV Flush (NS Flush) 2 ml BID IVF Last administered on 10/19/16 09:00; Start at 21:00; Stop 10/19/16 at 12:09; Status DC Cefazolin Sodium/ Dextrose 50 ml @ 100 mls/hr Q8H IV Last administered on 10/08 10:30; Start 10/07/16 at 19:00; Stop 10/08/16 at 11:29; Status DC Levetriacetam 500 mg/Sodium Chloride 105 ml @ 400 mls/hr Q12H IV Last administered on 10/31/16 05:11; Start 10/08/16 at 06:00; Stop 10/31/16 at 10:47 ; Status DC Bisacodyl (Dulcolax Supp) 10 mg DAILY PRN RECTAL CONSTIPATION; Start 10/07/16 at 18:30; Stop 10/31/16 at 10:47; Status DC Docusate Sodium (Colace) 100 mg BID PO Last administered on 10/19/16 09:00; Start 10/07/16 at 21:00; Stop 10/19/16 at 12:15; Status DC Pantoprazole Sodium (Protonix) 40 mg DAILY PO Last administered on 10/14/16 07: 47; Start 10/08/16 at 09:00; Stop 10/19/16 at 09:46; Status DC Pantoprazole Sodium (Protonix Inj) 40 mg DAILY IVP Last administered on 07:45; Start 10/08/16 at 09:00; Stop 10/12/16 at 14:30; Status DC Ondansetron HCl (Zofran Inj) 4 mg Q6H PRN IV NAUSEA OR VOMITING Last administered on 11/13/16 20:31; Start 10/07/16 at 18:30; Stop 12/08/16 at 13: 55; Status DC Calcium Gluconate (Calcium Gluconate Inj) 1 gm UNSCH PRN IV SEE LABEL COMMENTS Last administered on 10/16/16 10:00; Start 10/07/16 at 18:30; Stop 11/17/16 at 14:34; Status DC Potassium Chloride 100 ml @ 50 mls/hr UNSCH PRN IV POTASSIUM LESS THAN 4 Last administered on 12/02/16 08:13; Start 10/07/16 at 18:30; Stop 12/16/16 at 15: 01; Status DC Magnesium Sulfate 4 gm/Sodium Chloride 108 ml @ 108 mls/hr UNSCH PRN IV MAGNESIUM LESS THAN 2; Start 10/07/16 at 18:30; Stop 12/27/16 at 11:35; Status DC Acetaminophen/ Hydrocodone Bitart ([place] 10-325 Mg) 1 tab Q4H PRN PO PAIN SCALE 1 TO 5 Last administered on 10/13/16 13:07; Start 10/07/16 at 18:30; Stop 10/15/16 at 08:05; Status DC Acetaminophen/ Hydrocodone Bitart ([place] 10-325 Mg) 2 tab Q4H PRN PO PAIN SCALE 6 TO 10 Last administered on 10/09/16 10:20; Start 10/07/16 at 18:30; Stop 10/15/16 at 08:05; Status DC Morphine Sulfate (Morphine Inj) 2 mg Q2H PRN IV PUSH PAIN SCALE 1 TO 6 Last administered on 10/10/16 17:52; Start 10/07/16 at 18:30; Stop 10/15/16 at 08:05 ; Status DC Morphine Sulfate (Morphine Inj) 4 mg Q2H PRN IV PUSH PAIN SCALE 7 TO 10 Last administered on 10/08/16 01:55; Start 10/07/16 at 18:30; Stop 10/15/16 at 08:05 ; Status DC Acetaminophen (Tylenol) 650 mg Q4H PRN PO TEMP >100.4 Last administered on 11/14 03:07; Start 10/07/16 at 18:30; Stop 11/30/16 at 13:12; Status DC Iodixanol (VISIPAQUE 320 INJ (Rad Spec)) 65 ml STK-MED ONCE I-ARTERIAL Last administered on 10/07/16 18:38; Start 10/07/16 at 18:38; Stop 10/07/16 at 18:39 ; Status DC Dextrose (D50w (Vial) Inj) 50 ml UNSCH PRN IV PUSH HYPOGLYCEMIA - SEE COMMENTS Last administered on 11/01/16 09:22; Start 10/07/16 at 19:15; Stop 11/12/16 at 08:41; Status DC Glucagon (Glucagon Inj) 1 mg UNSCH PRN OTHER HYPOGLYCEMIA-SEE COMMENTS; Start 10/07/16 at 19:15; Stop 11/12/16 at 08:42; Status DC Midazolam HCl (Versed Inj) 4 mg STK-MED ONCE .ROUTE ; Start 10/07/16 at 19:51; Stop 10/07/16 at 19:52; Status DC Fentanyl Citrate (fentaNYL INJ) 250 mcg STK-MED ONCE .ROUTE ; Start 10/07/16 at 20:32; Stop 10/07/16 at 20:33; Status DC Propofol 100 ml @ 0 mls/hr TITRATE PRN IV Sedation Last administered on 05:31; Start 10/07/16 at 23:15; Stop 11/01/16 at 14:52; Status DC Epinephrine HCl (EPINEPHrine (1:10,000) INJ) 1 mg STK-MED ONCE .ROUTE ; Start at 04:09; Stop 10/09/16 at 04:10; Status DC Atropine Sulfate (Atropine Inj) 1 mg STK-MED ONCE .ROUTE ; Start 10/09/16 at 04: 09; Stop 10/09/16 at 04:10; Status DC Lidocaine HCl (Xylocaine 2% Inj) 100 mg STK-MED ONCE .ROUTE ; Start 10/09/16 at 04:09; Stop 10/09/16 at 04:10; Status DC Nimodipine (Nimotop) 60 mg Q4HR PO Last administered on 11/02/16 20:23; Start 10/13/16 at 00:00; Stop 11/02/16 at 23:59; Status DC Verapamil HCl (Isoptin Inj) 20 mg STK-MED ONCE .ROUTE Last administered on 10/13 17:10; Start 10/13/16 at 17:10; Stop 10/13/16 at 17:11; Status DC Iodixanol (VISIPAQUE 320 INJ (Rad Spec)) 45 ml STK-MED ONCE I-ARTERIAL Last administered on 10/13/16 17:40; Start 10/13/16 at 17:49; Stop 10/13/16 at 17:50 ; Status DC Midazolam HCl (Versed Inj) 2 mg STK-MED ONCE .ROUTE ; Start 10/13/16 at 18:32; Stop 10/13/16 at 18:33; Status DC Fentanyl Citrate (fentaNYL INJ) 200 mcg STK-MED ONCE .ROUTE ; Start 10/13/16 at 18:32; Stop 10/13/16 at 18:33; Status DC Sodium Chloride 2,000 ml @ 0 mls/hr Q0M IV Last administered on 10/14/16 20:20 ; Start 10/13/16 at 21:45; Stop 10/14/16 at 23:59; Status DC Phenylephrine HCl (Neosynephrine Inj) 10 mg STK-MED ONCE .ROUTE Last administered on 10/14/16 09:10; Start 10/14/16 at 09:10; Stop 10/14/16 at 09:11; Status DC Verapamil HCl (Isoptin Inj) 20 mg STK-MED ONCE .ROUTE Last administered on 10:19; Start 10/14/16 at 10:19; Stop 10/14/16 at 10:20; Status DC Fentanyl Citrate (fentaNYL INJ) 100 mcg STK-MED ONCE .ROUTE Last administered on 10/14/16 10:32; Start 10/14/16 at 10:32; Stop 10/14/16 at 10:33; Status DC Midazolam HCl (Versed Inj) 2 mg STK-MED ONCE .ROUTE Last administered on 10:32; Start 10/14/16 at 10:32; Stop 10/14/16 at 10:33; Status DC Midazolam HCl (Versed Inj) 2 mg STK-MED ONCE .ROUTE ; Start 10/14/16 at 10:32; Stop 10/14/16 at 10:33; Status DC Vasopressin 40 units/Dextrose 100 ml @ 4.5 mls/hr [id number] IV Last administered on 10/25/16 02:30; Start 10/14/16 at 11:30; Stop 10/31/16 at 10:47 ; Status DC Albumin Human (Albumin 5% Inj) 25 gm ONCE ONCE IV Last administered on 11:34; Start 10/14/16 at 11:15; Stop 10/14/16 at 11:17; Status DC Iodixanol (VISIPAQUE 320 INJ (Rad Spec)) 10 ml STK-MED ONCE I-ARTERIAL Last administered on 10/14/16 11:06; Start 10/14/16 at 11:06; Stop 10/14/16 at 11:07; Status DC Fludrocortisone Acetate (Florinef) 0.1 mg BID PO Last administered on 10/15/16 11:39; Start 10/14/16 at 11:45; Stop 10/15/16 at 13:17; Status DC Phenylephrine HCl (Neosynephrine Inj) 10 mg STK-MED ONCE .ROUTE Last administered on 10/14/16 12:18; Start 10/14/16 at 12:18; Stop 10/14/16 at 12:19; Status DC Norepinephrine Bitartrate 250 ml @ As Directed STK-MED ONCE IV ; Start 10/14/16 at 13:14; Stop 10/14/16 at 13:15; Status DC Norepinephrine Bitartrate (Levophed Inj) 4 mg STK-MED ONCE .ROUTE Last administered on 10/14/16 13:15; Start 10/14/16 at 13:15; Stop 10/14/16 at 13:16; Status DC Etomidate (Amidate Inj) 20 mg STK-MED ONCE .ROUTE Last administered on 14:18; Start 10/14/16 at 13:44; Stop 10/14/16 at 13:45; Status DC Midazolam HCl (Versed Inj) 5 mg STK-MED ONCE .ROUTE Last administered on 14:18; Start 10/14/16 at 13:44; Stop 10/14/16 at 13:45; Status DC Rocuronium [place] (Zemuron Inj) 50 mg STK-MED ONCE .ROUTE Last administered on 10/14/16 14:17; Start 10/14/16 at 13:45; Stop 10/14/16 at 13:46; Status DC Fentanyl Citrate 250 ml @ 5 mls/hr TITRATE PRN IV SEDATION Last administered on 10/30/16 17:39; Start 10/14/16 at 15:00; Stop 11/01/16 at 14:52; Status DC Phenylephrine HCl (Neosynephrine Inj) 10 mg STK-MED ONCE .ROUTE Last administered on 10/14/16 14:26; Start 10/14/16 at 14:26; Stop 10/14/16 at 14:27; Status DC Norepinephrine Bitartrate 4 mg/ Sodium Chloride 250 ml @ 7.5 mls/hr TITRATE PRN IV Blood pressure management Last administered on 10/15/16 15:05; Start 10/14 at 14:45; Stop 10/15/16 at 14:54; Status DC Terbutaline Sulfate (Brethine Inj) 1 mg UNSCH PRN SQ For Extravasation; Start 10/14/16 at 14:45; Stop 10/19/16 at 12:10; Status DC Rocuronium [place] (Zemuron Inj) 50 mg STK-MED ONCE .ROUTE Last administered on 10/14/16 14:43; Start 10/14/16 at 14:43; Stop 10/14/16 at 14:44; Status DC Midazolam HCl 100 ml @ 2 mls/hr TITRATE PRN IV SEDATION Last administered on 22:54; Start 10/14/16 at 15:00; Stop 10/25/16 at 08:47; Status DC Phenylephrine HCl (Neosynephrine Inj) 10 mg STK-MED ONCE .ROUTE ; Start 10/14/16 at 18:03; Stop 10/14/16 at 18:04; Status DC Phenylephrine HCl 40 mg/Dextrose 500 ml @ 30 mls/hr TITRATE PRN IV Blood pressure management Last administered on 10/15/16 15:02; Start 10/14/16 at 18:30 ; Stop 10/15/16 at 15:36; Status DC Terbutaline Sulfate (Brethine Inj) 1 mg UNSCH PRN SQ For Extravasation; Start 10/14/16 at 18:15; Stop 10/15/16 at 08:05; Status DC Heparin Sodium (Porcine) (Heparin Inj) 5,000 units Q8HR SQ Last administered on 11/13/16 21:20; Start 10/14/16 at 22:00; Status Future Hold Isoproterenol HCl 2 mg/Dextrose 260 ml @ 23.4 mls/hr TITRATE PRN IV Hypotension Last administered on 10/14/16 21:26; Start 10/14/16 at 21:00; Stop at 16:24; Status DC Sodium Chloride 1,000 ml @ 50 mls/hr Q20H IV Last administered on 10/15/16 09: 54; Start 10/14/16 at 21:15; Stop 10/16/16 at 09:17; Status DC Phenylephrine HCl (Neosynephrine Inj) 40 mg STK-MED ONCE .ROUTE ; Start 10/14/16 at 23:30; Stop 10/14/16 at 23:31; Status DC Phenylephrine HCl (Neosynephrine Inj) 10 mg STK-MED ONCE .ROUTE ; Start 10/14/16 at 23:31; Stop 10/14/16 at 23:32; Status DC Epinephrine HCl 2 mg/Dextrose 252 ml @ 22.68 mls/ hr TITRATE PRN IV Blood Pressure Management Last administered on 10/15/16 15:03; Start 10/15/16 at 02:00 ; Stop 10/15/16 at 14:54; Status DC Epinephrine HCl (Adrenalin (1:1000) Inj) 2 mg STK-MED ONCE .ROUTE ; Start at 01:59; Stop 10/15/16 at 02:00; Status DC Lorazepam (Ativan Inj) 2 mg STK-MED ONCE .ROUTE ; Start 10/15/16 at 02:13; Stop 10/15/16 at 02:14; Status DC Epoprostenol Sodium 75 ml/ Sodium Chloride 100 ml @ 8 mls/hr Q8H NEB Last administered on 10/21/16 15:25; Start 10/15/16 at 03:00; Stop 10/21/16 at 16:05; Status DC Lorazepam (Ativan Inj) 2 mg ONCE ONCE IV PUSH Last administered on 10/15/16 03 :33; Start 10/15/16 at 02:30; Stop 10/15/16 at 02:37; Status DC Fosphenytoin Sodium 1000 mgpe/ Sodium Chloride 70 ml @ 280 mls/hr ONCE ONCE IV Last administered on 10/15/16 03:32; Start 10/15/16 at 02:30; Stop 10/15/16 at 02:44; Status DC Fosphenytoin Sodium (Cerebyx Inj) 100 mgpe Q8HR IV Last administered on 06:28; Start 10/15/16 at 10:00; Stop 10/25/16 at 14:25; Status DC Calcium Chloride 1 gm/Sodium Chloride 110 ml @ 110 mls/hr ONCE ONCE IV Last administered on 10/15/16 03:52; Start 10/15/16 at 03:15; Stop 10/15/16 at 04:14; Status DC Pharmacy Profile Note 0 ml @ 0 mls/hr UNSCH OTHER ; Start 10/15/16 at 03:30; Stop 10/18/16 at 07:20; Status DC Cefepime HCl 2000 mg/Sodium Chloride 100 ml @ 200 mls/hr Q8H IV Last administered on 10/18/16 03:34; Start 10/15/16 at 04:00; Stop 10/18/16 at 07:20; Status DC Azithromycin 500 mg/Sodium Chloride 250 ml @ 250 mls/hr Q24H IV Last administered on 10/18/16 03:34; Start 10/15/16 at 04:00; Stop 10/18/16 at 07:20; Status DC Albuterol/ Ipratropium (Duoneb Neb) 1 ampule Q4HR WHILE AWAKE NEB NEB Last administered on 10/18/16 20:21; Start 10/15/16 at 08:00; Stop 10/19/16 at 07:59; Status DC Vancomycin HCl 1000 mg/Sodium Chloride 250 ml @ 250 mls/hr ONCE ONCE IV Last administered on 10/15/16 07:02; Start 10/15/16 at 05:00; Stop 10/15/16 at 05:59; Status DC Hydrocortisone Sodium Succinate (SoluCORTEF INJ) 100 mg Q8H IV PUSH Last administered on 10/22/16 04:34; Start 10/15/16 at 04:00; Stop 10/22/16 at 10:29; Status DC Phenylephrine HCl (Neosynephrine Inj) 20 mg STK-MED ONCE .ROUTE ; Start 10/15/16 at 04:35; Stop 10/15/16 at 04:36; Status DC Sodium Chloride 500 ml @ 30 mls/hr CONTINUOUS IV Last administered on 11:43; Start 10/15/16 at 08:00; Stop 10/22/16 at 10:29; Status DC Calcium Gluconate 2 gm/Sodium Chloride 120 ml @ 120 mls/hr ONCE ONCE IV Last administered on 10/15/16 09:26; Start 10/15/16 at 09:00; Stop 10/15/16 at 09:59; Status DC Albumin Human (Albumin 5% Inj) 12.5 gm STK-MED ONCE IV Last administered on 10/15 09:17; Start 10/15/16 at 09:17; Stop 10/15/16 at 09:18; Status DC Rocuronium [place] (Zemuron Inj) 50 mg STK-MED ONCE .ROUTE Last administered on 10/15/16 09:50; Start 10/15/16 at 09:50; Stop 10/15/16 at 09:51; Status DC Vancomycin HCl 1250 mg/Sodium Chloride 262.5 ml @ 262.5 mls/ hr Q12H IV Last administered on 10/17/16 05:57; Start 10/15/16 at 18:00; Stop 10/17/16 at 09:41; Status DC Miscellaneous Information SPECIFIC LAB TO BE ... ONCE ONCE .XX Last administered on 10/17/16 05:45; Start 10/17/16 at 05:45; Stop 10/17/16 at 05:46; Status DC Cisatracurium Besylate 100 mg/ Sodium Chloride 260 ml @ 11.24 mls/ hr TITRATE PRN IV TOF 02/16 Last administered on 10/21/16 12:59; Start 10/15/16 at 13:00; Stop 10/31/16 at 10:47; Status DC Sodium Chloride 240 meq/Syringe / Bag 60 ml @ 120 mls/hr ONCE ONCE IV Last administered on 10/15/16 13:25; Start 10/15/16 at 13:15; Stop 10/15/16 at 13:44; Status DC Sodium Chloride (Sodium Chloride) 3 gm TID PO Last administered on 11/04/16 10 :18; Start 10/15/16 at 13:15; Stop 11/04/16 at 11:21; Status DC Fludrocortisone Acetate (Florinef) 0.2 mg BID PO Last administered on 10/16/16 08:12; Start 10/15/16 at 21:00; Stop 10/16/16 at 09:12; Status DC Epinephrine HCl 2 mg/Dextrose 252 ml @ 22.68 mls/ hr TITRATE PRN IV Blood Pressure Management; Start 10/15/16 at 15:00; Stop 10/15/16 at 15:32; Status DC Norepinephrine Bitartrate 4 mg/ Sodium Chloride 250 ml @ 7.5 mls/hr TITRATE PRN IV Blood pressure management; Start 10/15/16 at 15:00; Stop 10/15/16 at 15:56 ; Status DC Sodium Chloride 240 meq/Syringe / Bag 60 ml @ 120 mls/hr ONCE ONCE IV Last administered on 10/15/16 15:33; Start 10/15/16 at 15:30; Stop 10/15/16 at 15:59; Status DC Epinephrine HCl 8 mg/Dextrose 250 ml @ 5.62 mls/hr TITRATE PRN IV Blood Pressure Management Last administered on 10/17/16 08:30; Start 10/15/16 at 15:30 ; Stop 10/17/16 at 10:08; Status DC Phenylephrine HCl 160 mg/Dextrose 500 ml @ 7.5 mls/hr TITRATE PRN IV Blood Pressure Management Last administered on 10/18/16 09:34; Start 10/15/16 at 15:45 ; Stop 10/17/16 at 10:08; Status DC Terbutaline Sulfate (Brethine Inj) 1 mg UNSCH PRN SQ FOR EXTRAVASATION PROTOCOL ; Start 10/15/16 at 15:45; Stop 11/01/16 at 07:51; Status DC Norepinephrine Bitartrate 16 mg/ Sodium Chloride 250 ml @ 1.87 mls/hr TITRATE PRN IV Blood pressure management Last administered on 10/17/16 09:11; Start 10/15 at 16:00; Stop 10/17/16 at 10:08; Status DC Calcium Gluconate 3 gm/Sodium Chloride 130 ml @ 120 mls/hr ONCE ONCE IV Last administered on 10/16/16 09:48; Start 10/16/16 at 10:00; Stop 10/16/16 at 11:04; Status DC Sodium Chloride 240 meq/Syringe / Bag 60 ml @ 120 mls/hr ONCE ONCE IV Last administered on 10/16/16 09:48; Start 10/16/16 at 10:00; Stop 10/16/16 at 10:29; Status DC Magnesium Oxide (Mag-Ox) 800 mg UNSCH PRN PO For Magnesium 1.2 - 1.6 mg/dL; Start 10/16/16 at 09:15; Stop 11/25/16 at 09:51; Status DC Magnesium Sulfate 4 gm/Sodium Chloride 100 ml @ 50 mls/hr UNSCH PRN IV For Magnesium 0.9 - 1.1 mg/dL; Start 10/16/16 at 09:15; Stop 11/25/16 at 09:51; Status DC Magnesium Sulfate 2 gm/Sodium Chloride 100 ml @ 50 mls/hr UNSCH PRN IV For Magnesium 1.2 - 1.6 mg/dL; Start 10/16/16 at 09:15; Stop 11/25/16 at 09:51; Status DC Potassium Chloride 100 ml @ 50 mls/hr Q2H PRN IV For Potassium 2.8 - 3.2 mEq/ L Last administered on 11/15/16 12:36; Start 10/16/16 at 09:15; Stop 11/25/16 at 09:51; Status DC Potassium Chloride 100 ml @ 50 mls/hr Q2H PRN IV For Potassium 3.3 - 3.5 mEq/L ; Start 10/16/16 at 09:15; Stop 11/25/16 at 09:51; Status DC Potassium Chloride 100 ml @ 50 mls/hr Q2H PRN IV For Potassium 2.8 - 3.2 mEq/ L Last administered on 10/27/16 13:26; Start 10/16/16 at 09:15; Stop 11/25/16 at 09:51; Status DC Potassium Chloride 100 ml @ 25 mls/hr UNSCH PRN IV For Potassium 3.3 - 3.5 mEq /L Last administered on 10/30/16 06:06; Start 10/16/16 at 09:15; Stop 11/25/16 at 09:51; Status DC Potassium Phosphate (K-Phos) 2,000 mg Q4H PRN PO For Phosphorus < 2.5 mg/dL; Start 10/16/16 at 09:15; Stop 11/25/16 at 09:51; Status DC Potassium Phosphate (K-Phos) 2,000 mg UNSCH PRN PO/TUBE SEE LABEL COMMENTS; Start 10/16/16 at 09:15; Stop 11/25/16 at 09:51; Status DC Potassium Phosphate 30 mmol/ Sodium Chloride 260 ml @ 42 mls/hr UNSCH PRN IV SEE LABEL COMMENTS Last administered on 10/24/16 20:39; Start 10/16/16 at 09:15 ; Stop 11/25/16 at 09:51; Status DC Sodium Phosphate 30 mmol/Sodium Chloride 250 ml @ 42 mls/hr UNSCH PRN IV For Phosphorus < 2.5 mg/dL Last administered on 10/22/16 06:46; Start 10/16/16 at 09: 15; Stop 11/25/16 at 09:51; Status DC Furosemide (Lasix Inj) 40 mg STK-MED ONCE .ROUTE Last administered on 10/16/16 13:27; Start 10/16/16 at 13:27; Stop 10/16/16 at 13:28; Status DC Vancomycin HCl 1250 mg/Sodium Chloride 262.5 ml @ 250 mls/hr Q8H IV Last administered on 10/18/16 06:10; Start 10/17/16 at 14:00; Stop 10/18/16 at 07:20; Status DC Miscellaneous Information SPECIFIC LAB TO BE LI... ONCE ONCE .XX Last administered on 10/18/16 05:45; Start 10/18/16 at 05:45; Stop 10/18/16 at 05:46; Status DC Sodium Chloride 1,000 ml @ 999 mls/hr BOLUS ONCE IV Last administered on 10:45; Start 10/17/16 at 11:00; Stop 10/17/16 at 12:00; Status DC Epinephrine HCl 8 mg/Dextrose 250 ml @ 5.62 mls/hr TITRATE PRN IV Blood Pressure Management; Start 10/17/16 at 10:15; Status Cancel Norepinephrine Bitartrate 16 mg/ Sodium Chloride 250 ml @ 1.87 mls/hr TITRATE PRN IV Blood pressure management Last administered on 10/20/16 01:07; Start 10/17 at 10:15; Stop 10/31/16 at 10:47; Status DC Phenylephrine HCl 160 mg/Dextrose 500 ml @ 7.5 mls/hr TITRATE PRN IV Blood Pressure Management Last administered on 10/23/16 14:21; Start 10/17/16 at 10:15 ; Stop 10/29/16 at 11:49; Status DC Epinephrine HCl 8 mg/Dextrose 250 ml @ 5.62 mls/hr TITRATE PRN IV Blood Pressure Management Last administered on 10/20/16 15:14; Start 10/17/16 at 11:15 ; Stop 10/29/16 at 11:49; Status DC Heparin Sodium (Porcine) (*HEPARIN INJ Periprocedural ONLY) 10,000 units STK- MED ONCE .ROUTE Last administered on 10/17/16 14:54; Start 10/17/16 at 14:54; Stop 10/17/16 at 14:55; Status DC Verapamil HCl (Isoptin Inj) 20 mg STK-MED ONCE .ROUTE Last administered on 15:34; Start 10/17/16 at 15:34; Stop 10/17/16 at 15:35; Status DC Iodixanol (VISIPAQUE 320 INJ (Rad Spec)) 40 ml STK-MED ONCE I-ARTERIAL Last administered on 10/17/16 16:00; Start 10/17/16 at 16:31; Stop 10/17/16 at 16:32; Status DC Sodium Chloride 1,000 ml @ 100 mls/hr Q10H IV Last administered on 10/18/16 03 :35; Start 10/17/16 at 18:00; Stop 10/18/16 at 07:06; Status DC Potassium Chloride (KCl Powder) 60 meq ONCE ONCE NG Last administered on 08:52; Start 10/18/16 at 09:00; Stop 10/18/16 at 09:01; Status DC Calcium Gluconate 1 gm/Sodium Chloride 110 ml @ 110 mls/hr UNSCH PRN IV For Protein Corrected Calcium Last administered on 10/18/16 10:22; Start 10/18/16 at 09:45; Stop 12/27/16 at 11:31; Status DC Gentamicin Sulfate (Gentamicin Inj) 240 mg STK-MED ONCE IRRIGATION ; Start 10/07 at 12:00; Stop 10/18/16 at 12:13; Status DC Thrombin (Thrombin Top Soln) 5,000 units STK-MED ONCE TOPICAL ; Start 10/07/16 at 12:00; Stop 10/18/16 at 12:13; Status DC Gelatin (Gelfoam 100 Top) 1 foam STK-MED ONCE OTHER ; Start 10/07/16 at 12:00; Stop 10/18/16 at 12:13; Status DC Propofol (Diprivan 200 Mg/20 ml Inj) 200 mg STK-MED ONCE IV ; Start 10/07/16 at 12:00; Stop 10/18/16 at 12:16; Status DC Ephedrine Sulfate (ePHEDrine/NS 25 MG/5 ML SYR) 25 mg STK-MED ONCE IV ; Start at 12:00; Stop 10/18/16 at 12:16; Status DC Phenylephrine HCl (Neosynephrine/ NS 1000 Mcg/10ml Syr) 1,000 mcg STK-MED ONCE IV ; Start 10/07/16 at 12:00; Stop 10/18/16 at 12:16; Status DC Lactated Ringer's 1,000 ml @ As Directed STK-MED ONCE IV ; Start 10/07/16 at 12 :00; Stop 10/18/16 at 12:16; Status DC Milrinone Lactate 20 mg/Sodium Chloride 100 ml @ 12.42 mls/ hr Q8H4M IV Last administered on 10/22/16 09:23; Start 10/18/16 at 16:21; Stop 10/22/16 at 19:37; Status DC Lansoprazole (Prevacid Odt) 30 mg DAILY NG Last administered on 12/16/16 08:54 ; Start 10/20/16 at 09:00; Stop 12/16/16 at 15:01; Status DC Lansoprazole (Prevacid Odt) 30 mg ONCE ONCE NG Last administered on 10/19/16 12:11; Start 10/19/16 at 12:00; Stop 10/19/16 at 12:02; Status DC Sodium Chloride (NS Flush) 2 ml UNSCH PRN IV FLUSH FLUSH AFTER USING IV ACCESS ; Start 10/19/16 at 09:45; Stop 12/27/16 at 11:24; Status DC Sodium Chloride (NS Flush) 2 ml BID IV FLUSH Last administered on 12/26/16 22 :03; Start 10/19/16 at 21:00; Stop 12/27/16 at 11:24; Status DC Artificial Tears (Tears Naturale Opth Soln) 1 drop TID EACH EYE Last administered on 01/13/17 17:00; Start 10/19/16 at 13:00 Ondansetron HCl (Zofran Inj) 4 mg Q6H PRN IV NAUSEA OR VOMITING; Start 10/19/16 at 09:45; Status UNV Albuterol/ Ipratropium (Duoneb Neb) 1 ampule Q6HR NEB INH Last administered on 10/23/16 08:36; Start 10/19/16 at 12:00; Stop 10/23/16 at 11:59; Status DC Albuterol Sulfate (Albuterol Neb) 2.5 mg Q2HR NEB PRN INH SOB/WHEEZING Last administered on 11/22/16 22:09; Start 10/19/16 at 09:45 Miscellaneous Information 1 [id number] ; Start 10/19/16 at 09:45; Stop 01/13/17 at 12:47; Status DC Chlorhexidine Gluconate (Chlorhexidine 2% Cloth) Taper DAILY@04 TOP Last administered on 12/24/16 04:00; Start 10/20/16 at 04:00; Stop 01/13/17 at 12:47 ; Status DC Chlorhexidine Gluconate (Chlorhexidine 2% Cloth) 3 pack UNSCH PRN TOP HYGIENIC CARE; Start 10/19/16 at 09:45; Stop 01/13/17 at 12:47; Status DC Docusate Sodium (Colace Liq) 100 mg Q12HR PO Last administered on 10/30/16 07: 55; Start 10/19/16 at 21:00; Stop 10/31/16 at 10:47; Status DC Sennosides (Senna Liq) 8.8 mg BID PO Last administered on 10/29/16 20:15; Start 10/19/16 at 21:00; Stop 10/31/16 at 10:47; Status DC Polyethylene Glycol (Miralax) 17 gm BID OG-TUBE Last administered on 10/29/16 20:15; Start 10/19/16 at 21:00; Stop 10/31/16 at 10:47; Status DC Pharmacy Profile Note 0 ml @ 0 mls/hr UNSCH OTHER ; Start 10/19/16 at 10:15; Stop 10/24/16 at 11:41; Status DC Piperacillin Sod/ Tazobactam Sod 100 ml @ 200 mls/hr Q6H IV Last administered on 10/23/16 05:39; Start 10/19/16 at 12:00; Stop 10/23/16 at 09:43; Status DC Vancomycin HCl 1500 mg/Sodium Chloride 515 ml @ 257.5 mls/ hr Q8H IV Last administered on 10/22/16 04:38; Start 10/19/16 at 13:00; Stop 10/22/16 at 13:55; Status DC Miscellaneous Information SPECIFIC LAB TO BE DRAWN:VANCOMYCIN TROUGH DATE TO... ONCE ONCE .XX Last administered on 10/20/16 12:45; Start 10/20/16 at 12:45; Stop 10/20/16 at 12:46; Status DC Verapamil HCl (Isoptin Inj) 5 mg STK-MED ONCE .ROUTE ; Start 10/19/16 at 12:44; Stop 10/19/16 at 12:45; Status DC Verapamil HCl (Isoptin Inj) 15 mg STK-MED ONCE .ROUTE ; Start 10/19/16 at 12:44; Stop 10/19/16 at 12:45; Status DC Iodixanol (VISIPAQUE 320 INJ (Rad Spec)) 30 ml STK-MED ONCE I-ARTERIAL Last administered on 10/19/16 13:50; Start 10/19/16 at 14:05; Stop 10/19/16 at 14:06; Status DC Lactulose (Lactulose Liq) 30 ml BID OG-TUBE Last administered on 10/31/16 20: 30; Start 10/20/16 at 21:00; Stop 11/01/16 at 07:51; Status DC Mineral Oil (Kondremul Liq) 30 ml ONCE ONCE PO ; Start 10/20/16 at 09:15; Stop 10/20/16 at 09:16; Status Cancel Methylnaltrexone [place] (Relistor Inj) 12 mg ONCE ONCE SQ Last administered on 10/20/16 14:17; Start 10/20/16 at 09:15; Stop 10/20/16 at 09:39; Status DC Insulin Aspart (NovoLOG SUPPLEMENTAL SCALE) 1 Q4HR SQ Last administered on 10/27 11:57; Start 10/20/16 at 12:00; Stop 11/03/16 at 12:42; Status DC Multivitamins 10 ml/Folic Acid 1 mg/Amino Acids/ Electrolytes/ Dextrose 2,010.2 ml @ 30 mls/hr Q24H IV-CENTRAL Last administered on 10/28/16 20:01; Start 10/20/16 at 20:00; Stop 10/31/16 at 10:47; Status DC Fat Emulsion Intravenous 250 ml @ 10 mls/hr Q24H IV-CENTRAL Last administered on 10/29/16 19:58; Start 10/20/16 at 20:00; Stop 10/31/16 at 10:47; Status DC Mineral Oil (Mineral Oil Liq) 30 ml ONCE ONCE PO ; Start 10/20/16 at 14:00; Stop 10/20/16 at 14:01; Status Cancel Mineral Oil (Mineral Oil Liq) 30 ml ONCE ONCE PO Last administered on 15:32; Start 10/20/16 at 14:00; Stop 10/20/16 at 14:01; Status DC Potassium Phosphate 30 mmol/ Sodium Chloride 260 ml @ 43.333 mls/ hr ONCE ONCE IV ; Start 10/20/16 at 18:00; Stop 10/20/16 at 23:59; Status DC Potassium Chloride 100 ml @ 25 mls/hr BOLUS ONCE IV Last administered on 17:17; Start 10/20/16 at 17:00; Stop 10/20/16 at 20:59; Status DC Miscellaneous Information SPECIFIC LAB TO BE LI... ONCE ONCE .XX Last administered on 10/22/16 12:45; Start 10/22/16 at 12:45; Stop 10/22/16 at 12:46; Status DC Diltiazem HCl 125 mg/Sodium Chloride 125 ml @ 5 mls/hr TITRATE PRN IV Tachycardia Last administered on 10/27/16 08:13; Start 10/22/16 at 10:30; Stop 10/28/16 at 18:49; Status DC Hydrocortisone Sodium Succinate (SoluCORTEF INJ) 75 mg Q8H IV PUSH Last administered on 10/24/16 04:05; Start 10/22/16 at 12:00; Stop 10/24/16 at 09:40 ; Status DC Milrinone Lactate 20 mg/Sodium Chloride 100 ml @ 9.79 mls/hr [id number] IV Last administered on 10/30/16 03:35; Start 10/22/16 at 10:23; Stop 11/01/16 at 07:51 ; Status DC Furosemide (Lasix Inj) 40 mg NOW ONCE IV PUSH Last administered on 10/22/16 14 :46; Start 10/22/16 at 14:30; Stop 10/22/16 at 14:31; Status DC Furosemide 100 mg/ Sodium Chloride 100 ml @ 10 mls/hr CONTINUOUS IV Last administered on 10/24/16 01:16; Start 10/22/16 at 15:00; Stop 10/24/16 at 11:17 ; Status DC Vancomycin HCl 1500 mg/Sodium Chloride 515 ml @ 257.5 mls/ hr Q12H IV Last administered on 10/23/16 08:32; Start 10/23/16 at 09:00; Stop 10/23/16 at 09:43 ; Status DC Potassium Chloride 100 ml @ 25 mls/hr Q4H IV Last administered on 10/22/16 18: 05; Start 10/22/16 at 15:00; Stop 10/22/16 at 22:59; Status DC Miscellaneous Information SPECIFIC LAB TO BE LI... ONCE ONCE .XX ; Start 10/25 at 08:45; Stop 10/25/16 at 08:45; Status DC Potassium Chloride 100 ml @ 25 mls/hr Q4H IV Last administered on 10/23/16 19 :46; Start 10/23/16 at 18:30; Stop 10/24/16 at 02:29; Status DC Hydrocortisone Sodium Succinate (SoluCORTEF INJ) 50 mg Q12H IV PUSH Last administered on 10/25/16 04:42; Start 10/24/16 at 16:00; Stop 10/25/16 at 08:37 ; Status DC Insulin Detemir (Levemir Inj) 12 units Q12HR SQ Last administered on 10/28/16 09:23; Start 10/24/16 at 09:45; Stop 10/28/16 at 18:30; Status DC Furosemide 100 mg/ Sodium Chloride 100 ml @ 5 mls/hr CONTINUOUS IV Last administered on 10/27/16 08:12; Start 10/24/16 at 12:00; Stop 10/27/16 at 08:59 ; Status DC Hydrocortisone Sodium Succinate (SoluCORTEF INJ) 25 mg Q12H IV PUSH Last administered on 10/27/16 04:14; Start 10/25/16 at 16:00; Stop 10/27/16 at 08:59 ; Status DC Acetazolamide Sodium (Diamox Inj) 500 mg DAILY IV PUSH Last administered on 08:15; Start 10/25/16 at 09:00; Stop 10/28/16 at 03:25; Status DC Phenytoin Sodium (Dilantin Inj) 100 mg Q8HR IV Last administered on 11/01/16 05:30; Start 10/25/16 at 22:00; Stop 11/01/16 at 07:52; Status DC Furosemide (Lasix Inj) 40 mg DAILY IV PUSH Last administered on 11/09/16 09:11 ; Start 10/28/16 at 09:00; Stop 11/09/16 at 10:18; Status DC Sodium Chloride 1,000 ml @ 30 mls/hr Q24H IV Last administered on 10/28/16 19 :30; Start 10/28/16 at 05:45; Stop 10/29/16 at 11:49; Status DC Dextrose (D50w (Syr) Inj) 50 ml STK-MED ONCE .ROUTE ; Start 10/28/16 at 17:41; Stop 10/28/16 at 17:42; Status DC Insulin Detemir (Levemir Inj) 8 units Q12HR SQ Last administered on 10/29/16 08:28; Start 10/28/16 at 21:00; Stop 11/01/16 at 14:52; Status DC Protein (Beneprotein Powder) 1 pack TID G-TUBE Last administered on 12/14/16 12:08; Start 10/29/16 at 13:00; Stop 12/14/16 at 13:57; Status DC Diltiazem HCl (Cardizem) 60 mg Q6HR PO Last administered on 11/02/16 04:46; Start 10/29/16 at 13:00; Stop 11/02/16 at 07:19; Status DC Levetriacetam (Keppra Liq) 500 mg Q12HR NG Last administered on 12/26/16 22: 02; Start 10/31/16 at 21:00; Stop 12/27/16 at 15:58; Status DC Cisatracurium Besylate (Nimbex Inj) 20 mg ONCE ONCE IV ; Start 11/01/16 at 07: 45; Stop 11/01/16 at 07:55; Status DC Midazolam HCl (Versed Inj) 10 mg ONCE ONCE IV PUSH Last administered on 11:36; Start 11/01/16 at 07:45; Stop 11/01/16 at 07:53; Status DC Fentanyl Citrate (fentaNYL INJ) 250 mcg ONCE ONCE IV PUSH Last administered on 11/01/16 11:37; Start 11/01/16 at 07:45; Stop 11/01/16 at 07:53; Status DC Lactulose (Lactulose Liq) 30 ml QID OG-TUBE Last administered on 11/11/16 12: 28; Start 11/01/16 at 09:00; Stop 11/12/16 at 08:36; Status DC Phenytoin (Dilantin Liq) 100 mg Q8HR PO Last administered on 11/06/16 06:34; Start 11/01/16 at 14:00; Stop 11/06/16 at 12:28; Status DC Cisatracurium Besylate (Nimbex Inj) 20 mg ONCE ONCE IV Last administered on 11:36; Start 11/01/16 at 09:15; Stop 11/01/16 at 09:16; Status DC Oxycodone HCl (Roxicodone Intensol Liq) 10 mg Q4H PRN PO pain 1-6 Last administered on 11/11/16 02:28; Start 11/01/16 at 15:00; Stop 11/24/16 at 11: 19; Status DC Hydromorphone HCl (Dilaudid Pf Inj) 0.5 mg Q4H PRN IV PUSH pain 7-10 or not taking po Last administered on 11/19/16 01:42; Start 11/01/16 at 15:00; Stop 11/29/16 at 12:24; Status DC Haloperidol Lactate (Haldol Inj) 5 mg Q4H PRN IV PUSH agitation; Start at 15:00; Stop 11/29/16 at 14:45; Status DC Melatonin (Melatonin) 5 mg HS PO Last administered on 01/15/17 20:45; Start at 21:00 Diltiazem HCl (Cardizem) 90 mg Q6HR PO Last administered on 01/16/17 05:11; Start 11/02/16 at 12:00 Pharmacy Profile Note 0 ml @ 0 mls/hr UNSCH OTHER ; Start 11/02/16 at 15:30; Stop 11/06/16 at 15:48; Status DC Vancomycin HCl 1250 mg/Sodium Chloride 262.5 ml @ 250 mls/hr Q8H IV Last administered on 11/04/16 02:20; Start 11/02/16 at 18:00; Stop 11/05/16 at 16:14 ; Status DC Cefepime HCl 2000 mg/Sodium Chloride 100 ml @ 200 mls/hr Q8H IV Last administered on 11/06/16 08:42; Start 11/02/16 at 17:00; Stop 11/06/16 at 15:48 ; Status DC Metronidazole 100 ml @ 100 mls/hr Q6H IV Last administered on 11/04/16 09:26 ; Start 11/02/16 at 16:00; Stop 11/04/16 at 11:21; Status DC Miscellaneous Information SPECIFIC LAB TO BE DRAWN:VANCOMYCIN TROUGH DATE TO... ONCE ONCE .XX ; Start 11/03/16 at 17:45; Stop 11/03/16 at 17:46; Status DC Insulin Aspart (NovoLOG SUPPLEMENTAL SCALE) 1 Q12H SQ Last administered on 11/04 00:42; Start 11/03/16 at 12:00; Stop 11/12/16 at 08:40; Status DC Potassium Chloride 100 ml @ 50 mls/hr Q2H IV ; Start 11/03/16 at 15:00; Stop at 16:58; Status DC Miscellaneous Information SPECIFIC LAB TO BE DRAWN:VANCOMYCIN TROUGH DATE TO... ONCE ONCE .XX Last administered on 11/04/16 01:45; Start 11/04/16 at 01:45; Stop 11/04/16 at 01:46; Status DC Sodium Chloride 1,000 ml @ 84 mls/hr [id number] IV Last administered on 13:02; Start 11/04/16 at 11:15; Stop 11/05/16 at 11:14; Status DC Vancomycin HCl 1250 mg/Sodium Chloride 262.5 ml @ 250 mls/hr Q12H IV Last administered on 11/06/16 06:34; Start 11/05/16 at 18:00; Stop 11/06/16 at 15:48 ; Status DC Miscellaneous Information SPECIFIC LAB TO BE LI... ONCE ONCE .XX ; Start 11/07 at 05:45; Stop 11/07/16 at 05:45; Status DC Aztreonam 1000 mg/ Sodium Chloride 100 ml @ 200 mls/hr Q8H IV Last administered on 11/08/16 08:00; Start 11/06/16 at 16:00; Stop 11/08/16 at 12:55 ; Status DC Lactobacillus Acidophilus (Lactinex) 1 tab TID PO Last administered on 12:16; Start 11/06/16 at 18:00; Stop 12/14/16 at 13:57; Status DC Fluconazole (Diflucan) 100 mg DAILY PO Last administered on 11/16/16 09:23; Start 11/06/16 at 16:00; Stop 11/16/16 at 13:20; Status DC Norepinephrine Bitartrate (Levophed Inj) 4 mg STK-MED ONCE .ROUTE ; Start at 02:02; Stop 11/07/16 at 02:03; Status DC Chlorhexidine Gluconate (Hibiclens 4% Top Soln) 1 applic HS TOP Last administered on 11/07/16 23:28; Start 11/07/16 at 21:00; Stop 11/08/16 at 09:58 ; Status DC Prednisone (Deltasone) 20 mg BID PO Last administered on 11/09/16 21:08; Start 11/08/16 at 13:00; Stop 11/09/16 at 21:01; Status DC Levofloxacin (Levaquin) 750 mg DAILY PO Last administered on 11/15/16 08:23; Start 11/08/16 at 13:00; Stop 11/15/16 at 12:59; Status DC Furosemide (Lasix Liq) 20 mg DAILY NG Last administered on 12/01/16 08:38; Start 11/09/16 at 10:30; Stop 12/02/16 at 09:49; Status DC Cefazolin Sodium 1000 mg/Sodium Chloride 100 ml @ 200 mls/hr NOW ONCE IV ; Start 11/12/16 at 15:30; Stop 11/12/16 at 15:59; Status DC Water (Free Water) 200 ml Q6HR G-TUBE Last administered on 11/15/16 18:00; Start 11/14/16 at 18:45; Stop 11/15/16 at 18:50; Status DC Potassium Bicarb/ Potassium Chloride (K-Lyte Cl Eff) 50 meq NOW ONCE PO Last administered on 11/15/16 10:44; Start 11/15/16 at 08:30; Stop 11/15/16 at 08:31 ; Status DC Water (Free Water) 300 ml Q4HR G-TUBE Last administered on 11/20/16 16:00; Start 11/15/16 at 20:00; Stop 11/21/16 at 20:04; Status DC Acetylcysteine (Mucomyst 20% Neb) 2 ml Q6HR NEB NEB Last administered on 04:24; Start 11/16/16 at 10:00; Stop 11/20/16 at 09:59; Status DC Albuterol/ Ipratropium (Duoneb Neb) 1 ampule Q6HR NEB NEB Last administered on 11/20/16 08:04; Start 11/16/16 at 10:00; Stop 11/20/16 at 09:59; Status DC Metoclopramide HCl (Reglan Inj) 10 mg Q8H IV PUSH Last administered on 09:40; Start 11/18/16 at 02:00; Stop 12/02/16 at 09:51; Status DC Ondansetron HCl (Zofran Inj) 4 mg Q6H PRN IV PUSH nausea; Start 11/18/16 at 01: 45; Stop 12/27/16 at 11:33; Status DC Sodium Chloride 1,000 ml @ 999 mls/hr BOLUS ONCE IV Last administered on 11/18 01:58; Start 11/18/16 at 02:00; Stop 11/18/16 at 03:00; Status DC Bacitracin (Baciguent Oint) 1 applic Q12HR TOPICAL Last administered on 20:45; Start 11/18/16 at 11:00 Levofloxacin (Levaquin) 750 mg DAILY PO Last administered on 11/25/16 09:19; Start 11/18/16 at 12:00; Stop 11/25/16 at 11:59; Status DC Sodium Chloride 1,000 ml @ 75 mls/hr [id number] IV Last administered on 01:08; Start 11/18/16 at 13:00; Stop 11/19/16 at 12:59; Status DC Protein (Beneprotein Powder) 1 pack TID G-TUBE Last administered on 01/10/17 18:00; Start 11/19/16 at 09:00; Stop 01/13/17 at 12:47; Status DC Water (Free Water) VOLUME OF WATER: 200 ML Q6HR G-TUBE Last administered on 18:00; Start 11/22/16 at 00:00; Stop 11/26/16 at 18:43; Status DC Albuterol/ Ipratropium (Duoneb Neb) 1 ampule QID NEB NEB Last administered on 11/27/16 11:55; Start 11/23/16 at 16:00; Stop 11/27/16 at 15:59; Status DC Povidone Iodine (Betadine 10% Oint) 1 applic DAILY TOPICAL Last administered on 12/23/16 09:00; Start 11/24/16 at 09:00; Stop 12/24/16 at 12:51; Status DC Oxycodone HCl (Roxicodone Intensol Liq) 10 mg Q4H PRN PO PAIN SCALE 1 TO 6; Start 11/24/16 at 11:30; Stop 11/29/16 at 14:38; Status DC Midazolam HCl (Versed Inj) 5 mg STK-MED ONCE .ROUTE Last administered on 16:24; Start 11/26/16 at 16:24; Stop 11/26/16 at 16:25; Status DC Rocuronium [place] (Zemuron Inj) 100 mg STK-MED ONCE .ROUTE Last administered on 11/26/16 18:19; Start 11/26/16 at 16:24; Stop 11/26/16 at 16:25; Status DC Propofol 50 ml @ As Directed STK-MED ONCE .ROUTE Last administered on 18:29; Start 11/26/16 at 16:53; Stop 11/26/16 at 16:54; Status DC Chlorhexidine Gluconate (Peridex 0.12% Liq) 15 ml BID@08,20 MT Last administered on 01/15/17 20:00; Start 11/26/16 at 20:00 Propofol 100 ml @ 1.668 mls/ hr TITRATE PRN IV SEDATION Last administered on 11/26/16 21:29; Start 11/26/16 at 18:45; Stop 12/12/16 at 16:47; Status DC Fentanyl Citrate (fentaNYL INJ) 100 mcg Q1H PRN IV PUSH any pain; Start at 18:45; Stop 11/29/16 at 14:38; Status DC Fentanyl Citrate 250 ml @ 5 mls/hr TITRATE PRN IV SEDATION Last administered on 11/29/16 06:30; Start 11/26/16 at 18:45; Stop 12/12/16 at 16:47; Status DC Propofol 50 ml @ As Directed STK-MED ONCE .ROUTE Last administered on 18:47; Start 11/26/16 at 18:43; Stop 11/26/16 at 18:44; Status DC Cisatracurium Besylate (Nimbex Inj) 11 mg ONCE ONCE IV PUSH Last administered on 11/26/16 19:30; Start 11/26/16 at 18:45; Stop 11/26/16 at 18:50; Status DC Cisatracurium Besylate 100 mg/ Sodium Chloride 260 ml @ 8.67 mls/hr TITRATE PRN IV TOF 1/4 Last administered on 11/28/16 06:25; Start 11/26/16 at 18:45; Stop 11/28/16 at 10:46; Status DC Epinephrine HCl (EPINEPHrine (1:10,000) INJ) 1 mg STK-MED ONCE .ROUTE ; Start 11/26/16 at 20:06; Stop 11/26/16 at 20:07; Status DC Atropine Sulfate (Atropine Inj) 1 mg STK-MED ONCE .ROUTE ; Start 11/26/16 at 20 :06; Stop 11/26/16 at 20:07; Status DC Lidocaine HCl (Xylocaine 2% Inj) 100 mg STK-MED ONCE .ROUTE ; Start 11/26/16 at 20:07; Stop 11/26/16 at 20:08; Status DC Iohexol (Omnipaque 350 Inj) 95 ml STK-MED ONCE IVCONTRAST Last administered on 11/26/16 20:20; Start 11/26/16 at 20:20; Stop 11/26/16 at 20:21; Status DC Lactated Ringer's 1,000 ml @ 84 mls/hr [id number] IV ; Start 11/26/16 at 23:00; Stop 11/27/16 at 01:37; Status DC Sodium Chloride 500 ml @ 50 mls/hr Q10H IV Last administered on 11/27/16 01: 50; Start 11/27/16 at 01:45; Stop 11/27/16 at 11:44; Status DC Midazolam HCl 100 ml @ 2 mls/hr TITRATE PRN IV SEDATION Last administered on 22:12; Start 11/27/16 at 01:45; Stop 11/29/16 at 14:45; Status DC Midazolam HCl (Versed Inj) 2 mg Q15M PRN IV PUSH SEDATION; Start 11/27/16 at 01:45; Stop 11/29/16 at 14:45; Status DC Lactated Ringer's 1,000 ml @ 84 mls/hr [id number] IV Last administered on 01:17; Start 11/27/16 at 03:15; Stop 12/02/16 at 07:00; Status DC Cisatracurium Besylate 100 mg/ Sodium Chloride 250 ml @ 8.34 mls/hr TITRATE PRN IV TOF 1/4 Last administered on 11/28/16 11:11; Start 11/28/16 at 11:00; Stop 11/28/16 at 14:11; Status DC Sodium Chloride 250 ml @ 15 mls/hr ONCE ONCE IV Last administered on 11:15; Start 11/28/16 at 11:15; Stop 11/29/16 at 03:54; Status DC Epinephrine HCl (EPINEPHrine (1:10,000) INJ) 1 mg STK-MED ONCE .ROUTE ; Start 11/29/16 at 04:20; Stop 11/29/16 at 04:21; Status DC Atropine Sulfate (Atropine Inj) 1 mg STK-MED ONCE .ROUTE ; Start 11/29/16 at 04 :20; Stop 11/29/16 at 04:21; Status DC Lidocaine HCl (Xylocaine 2% Inj) 100 mg STK-MED ONCE .ROUTE ; Start 11/29/16 at 04:20; Stop 11/29/16 at 04:21; Status DC Iohexol (Omnipaque 350 Inj) 70 ml STK-MED ONCE IVCONTRAST Last administered on 11/29/16t 05:14; Start 11/29/16 at 05:14; Stop 11/29/16 at 05:15; Status DC Epinephrine HCl (EPINEPHrine (1:10,000) INJ) 1 mg STK-MED ONCE .ROUTE ; Start 11/29/16 at 06:45; Stop 11/29/16 at 06:46; Status DC Epinephrine HCl (EPINEPHrine (1:10,000) INJ) 4 mg STK-MED ONCE .ROUTE ; Start 11/29/16 at 06:48; Stop 11/29/16 at 06:49; Status DC Hydromorphone HCl (Dilaudid Pf Inj) 0.5 mg Q4H PRN IV PUSH pain 7-10 or not taking po; Start 11/29/16 at 12:30; Stop 11/29/16 at 14:38; Status DC Rocuronium [place] (Zemuron Inj) 50 mg STK-MED ONCE .ROUTE Last administered on 11/29/16 12:51; Start 11/29/16 at 12:51; Stop 11/29/16 at 12:52; Status DC Rocuronium [place] (Zemuron Inj) 50 mg STK-MED ONCE .ROUTE Last administered on 11/29/16 13:30; Start 11/29/16 at 13:30; Stop 11/29/16 at 13:31; Status DC Collagenase (Santyl Oint) 1 applic DAILY TOPICAL Last administered on 08:36; Start 11/30/16 at 12:00 Albuterol/ Ipratropium (Duoneb Neb) 1 ampule Q6HR NEB NEB Last administered on 12/04/16 09:06; Start 11/30/16 at 16:00; Stop 12/04/16 at 09:12; Status DC Dextrose (D50w (Vial) Inj) 50 ml UNSCH PRN IV PUSH HYPOGLYCEMIA-SEE COMMENTS; Start 11/30/16 at 12:15; Stop 12/02/16 at 19:38; Status DC Glucagon (Glucagon Inj) 1 mg UNSCH PRN OTHER HYPOGLYCEMIA-SEE COMMENTS; Start 11/30/16 at 12:15; Stop 12/02/16 at 19:38; Status DC Insulin Human Regular (NovoLIN R SUPPLEMENTAL SCALE) 1 ACHS SLIDING SCALE SQ ; Start 11/30/16 at 17:00; Stop 12/02/16 at 09:49; Status DC Acetaminophen (Tylenol) 650 mg Q4H PRN PO PAIN OR TEMP >100.4 Last administered on 12/20/16 14:32; Start 11/30/16 at 13:15; Stop 12/27/16 at 11: 35; Status DC Magnesium Sulfate/ Dextrose 100 ml @ 100 mls/hr Q1H IV Last administered on 16:52; Start 12/01/16 at 14:00; Stop 12/01/16 at 15:59; Status DC Potassium Chloride (KCl Powder) 20 meq ONCE ONCE PO ; Start 12/01/16 at 14:00 ; Stop 12/01/16 at 14:01; Status DC Fentanyl Citrate (fentaNYL INJ) 200 mcg STK-MED ONCE .ROUTE Last administered on 12/01/16 15:00; Start 12/01/16 at 14:45; Stop 12/01/16 at 14:46; Status DC Midazolam HCl (Versed Inj) 4 mg STK-MED ONCE .ROUTE Last administered on 15:00; Start 12/01/16 at 14:45; Stop 12/01/16 at 14:46; Status DC Fentanyl Citrate (fentaNYL INJ) 100 mcg STK-MED ONCE .ROUTE Last administered on 12/01/16 15:55; Start 12/01/16 at 15:53; Stop 12/01/16 at 15:54; Status DC Midazolam HCl (Versed Inj) 2 mg STK-MED ONCE .ROUTE Last administered on 16:00; Start 12/01/16 at 15:53; Stop 12/01/16 at 15:54; Status DC Cefazolin Sodium/ Dextrose 50 ml @ As Directed STK-MED ONCE .ROUTE Last administered on 12/01/16 16:00; Start 12/01/16 at 16:03; Stop 12/01/16 at 16 :04; Status DC Iodixanol (VISIPAQUE 320 INJ (Rad Spec)) 65 ml STK-MED ONCE I-ARTERIAL Last administered on 12/01/16 16:15; Start 12/02/16 at 08:47; Stop 12/02/16 at 08 :51; Status DC Potassium Chloride (KCl Powder) 20 meq ONCE ONCE PO ; Start 12/02/16 at 10:00 ; Stop 12/02/16 at 10:02; Status DC Insulin Human Regular (NovoLIN R SUPPLEMENTAL SCALE) 1 Q6HR SQ ; Start at 12:00; Stop 12/02/16 at 19:38; Status DC Magnesium Sulfate/ Dextrose 100 ml @ 100 mls/hr ONCE ONCE IV Last administered on 12/02/16 11:11; Start 12/02/16 at 10:00; Stop 12/02/16 at 10 :59; Status DC Metoclopramide HCl (Reglan Inj) 5 mg Q8H IV PUSH Last administered on 02:28; Start 12/02/16 at 18:00; Stop 12/12/16 at 16:47; Status DC Racepinephrine (Racepinephrine 2.25% Neb) 0.5 ml Q4HR NEB PRN NEB hemoptysis/ stridor; Start 12/03/16 at 15:00; Stop 01/13/17 at 12:47; Status DC Albuterol/ Ipratropium (Duoneb Neb) 1 ampule Q6HR NEB NEB Last administered on 12/08/16 01:13; Start 12/04/16 at 10:00; Stop 12/08/16 at 09:59; Status DC Nitroglycerin (Nitroglycerin 2% Oint) 2 inch Q6H PRN TOPICAL SBP>160, DBP>90; Start 12/04/16 at 09:15 Clonidine (Catapres) 0.1 mg Q8H PO Last administered on 01/10/17 01:22; Start 12/04/16 at 10:00; Stop 01/10/17 at 16:51; Status DC Hydralazine HCl (Apresoline Inj) 10 mg Q1H PRN IV PUSH SBP>160, DBP>90 Last administered on 12/04/16 12:39; Start 12/04/16 at 09:15; Stop 12/16/16 at 15: 01; Status DC Labetalol HCl (Trandate Inj) 10 mg Q1H PRN IV PUSH SBP>160, DBP>90, HR>65; Start 12/04/16 at 09:15; Stop 12/16/16 at 15:01; Status DC Enalaprilat (Vasotec Inj) 1.25 mg Q6H PRN IV PUSH SBP>160, DBP>90; Start 12/04 at 09:15 Sodium Chloride (NS Flush) DAILY IV FLUSH Last administered on 01/09/17 09: 19; Start 12/04/16 at 18:00; Stop 01/13/17 at 12:47; Status DC Sodium Chloride (NS Flush) UNSCH PRN IV FLUSH SEE PROTOCOL; Start 12/04/16 at 18:00; Stop 01/13/17 at 12:47; Status DC Loperamide HCl (Imodium Liq) 2 mg UNSCH PRN PO DIARRHEA; Start 12/14/16 at 10: 45 Lactobacillus Acidophilus (Lactinex) 1 tab TID PO Last administered on 17:35; Start 12/14/16 at 18:00 Famotidine (Pepcid) 20 mg BID PO Last administered on 01/15/17 20:45; Start 12/16/16 at 21:00 Ferrous Sulfate (Ferrous Sulfate) 325 mg BID@12,17 PO Last administered on 01/15 17:35; Start 12/22/16 at 12:00 Ascorbic Acid (Vitamin C) 500 mg BID PO Last administered on 01/15/17 20:44; Start 12/22/16 at 09:00 Chlorhexidine Gluconate (Hibiclens 4% Top Soln) 1 applic HS TOP Last administered on 12/26/16 21:00; Start 12/22/16 at 21:00; Stop 12/26/16 at 21: 01; Status DC Cefazolin Sodium/ Dextrose 50 ml @ 150 mls/hr ONCE ONCE IV Last administered on 12/27/16 08:15; Start 12/27/16 at 06:00; Stop 12/27/16 at 06:19; Status DC Lactated Ringer's 1,000 ml @ 30 mls/hr Q24H PRN IV SEE LABEL COMMENTS; Start 12/26/16 at 15:00; Stop 12/27/16 at 11:25; Status DC Sodium Chloride 500 ml @ 30 mls/hr [id number] PRN IV SEE LABEL COMMENTS; Start at 15:00; Stop 12/27/16 at 11:25; Status DC Metoprolol Tartrate (Lopressor) 25 mg RECORDS MANAGEMENT ENGINEER PRN PO SEE LABEL COMMENTS; Start 12/26/16 at 15:00; Stop 12/29/16 at 14:59; Status DC Povidone Iodine (Betadine 5% Antisepsis Kit) 1 applic [employer] ENGINEER PRN EACH NARE SEE LABEL COMMENTS; Start 12/26/16 at 15:00; Stop 12/29/16 at 14:59; Status DC Chlorhexidine Gluconate (Chlorhexidine 2% Cloth) 3 pack [employer] MANAGEMENT ENGINEER PRN TOPICAL SEE LABEL COMMENTS; Start 12/26/16 at 15:00; Stop 12/29/16 at 14:59; Status DC Insulin Human Regular (NovoLIN R INJ) See Protocol Table ... [employer]OR[employer] MANAGEMENT ENGINEER PRN SQ SEE PROTOCOL TABLE; Start 12/26/16 at 15:00; Stop 12/29/16 at 14:59; Status DC Thrombin (Thrombin Top Soln) 10,000 units STK-MED ONCE .ROUTE Last administered on 12/27/16 10:00; Start 12/27/16 at 07:52; Stop 12/27/16 at 07 :53; Status DC Gelatin (Gelfoam 100 Top) 1 foam STK-MED ONCE .ROUTE Last administered on 12/27 10:00; Start 12/27/16 at 07:53; Stop 12/27/16 at 07:54; Status DC Gentamicin Sulfate (Gentamicin Inj) 240 mg STK-MED ONCE .ROUTE Last administered on 12/27/16 10:00; Start 12/27/16 at 07:53; Stop 12/27/16 at 07 :54; Status DC Lidocaine/ Epinephrine (Xylocaine-Epi 1%-1:100,000 Inj) 20 ml STK-MED ONCE .ROUTE Last administered on 12/27/16 10:00; Start 12/27/16 at 07:54; Stop 12/27/16 at 07:55; Status DC Acetaminophen 100 ml @ As Directed STK-MED ONCE IV ; Start 12/27/16 at 07:57; Stop 12/27/16 at 07:58; Status DC Artificial Tears (Lacrilube Opht Oint) 3.5 applic STK-MED ONCE .ROUTE ; Start 12/27/16 at 07:58; Stop 12/27/16 at 07:59; Status DC Levetriacetam (Keppra Inj) 500 mg STK-MED ONCE IV Last administered on 10:10; Start 12/27/16 at 10:06; Stop 12/27/16 at 10:07; Status DC Potassium Chloride/Sodium Chloride 1,000 ml @ 100 mls/hr Q10H IV Last administered on 01/12/17 10:00; Start 12/27/16 at 11:17; Stop 01/12/17 at 11 :04; Status DC IV Flush (NS Flush) 2 ml UNSCH PRN IVF FLUSH AFTER USING IV ACCESS; Start at 11:30 IV Flush (NS Flush) 2 ml BID IVF Last administered on 01/13/17 08:44; Start 12/27/16 at 21:00; Stop 01/13/17 at 12:47; Status DC Cefazolin Sodium/ Dextrose 50 ml @ 100 mls/hr Q8H IV Last administered on 08:00; Start 12/27/16 at 16:00; Stop 12/28/16 at 08:29; Status DC Levetriacetam 500 mg/Sodium Chloride 105 ml @ 400 mls/hr Q12H IV ; Start 12/27 at 12:00; Status Cancel Bisacodyl (Dulcolax Supp) 10 mg DAILY PRN RECTAL CONSTIPATION; Start 12/27/16 at 11:30 Docusate Sodium (Colace) 100 mg BID PO Last administered on 01/15/17 20:44; Start 12/27/16 at 21:00 Pantoprazole Sodium (Protonix) 40 mg DAILY PO Last administered on 01/13/17 08 :44; Start 12/28/16 at 09:00; Stop 01/13/17 at 12:47; Status DC Pantoprazole Sodium (Protonix Inj) 40 mg DAILY IVP Last administered on 08:44; Start 12/28/16 at 09:00; Stop 01/13/17 at 12:43; Status DC Ondansetron HCl (Zofran Inj) 4 mg Q6H PRN IV PUSH NAUSEA OR VOMITING; Start at 11:30 Calcium Gluconate (Calcium Gluconate Inj) 1 gm UNSCH PRN IV SEE LABEL COMMENTS ; Start 12/27/16 at 11:30; Stop 12/27/16 at 11:31; Status DC Potassium Chloride 100 ml @ 50 mls/hr UNSCH PRN IV POTASSIUM LESS THAN 4; Start 12/27/16 at 11:30; Stop 01/10/17 at 16:51; Status DC Magnesium Sulfate 4 gm/Sodium Chloride 108 ml @ 108 mls/hr UNSCH PRN IV MAGNESIUM LESS THAN 2; Start 12/27/16 at 11:30; Stop 01/10/17 at 16:51; Status DC Acetaminophen/ Hydrocodone Bitart ([place] 10-325 Mg) 1 tab Q4H PRN PO PAIN 1-5 WHEN TOLERATING PO Last administered on 12/30/16 05:54; Start 12/27/16 at 11: 30 Acetaminophen/ Hydrocodone Bitart ([place] 10-325 Mg) 2 tab Q4H PRN PO PAIN 6-10 WHEN TOLERATING PO Last administered on 12/30/16 14:24; Start 12/27/16 at 11: 30 Morphine Sulfate (Morphine Inj) 2 mg Q2H PRN IV PUSH PAIN SCALE 1 TO 6 Last administered on 12/29/16 15:05; Start 12/27/16 at 11:30; Stop 01/13/17 at 12: 43; Status DC Morphine Sulfate (Morphine Inj) 4 mg Q2H PRN IV PUSH PAIN SCALE 7 TO 10 Last administered on 12/28/16 18:00; Start 12/27/16 at 11:30; Stop 01/13/17 at 12: 43; Status DC Acetaminophen (Tylenol) 650 mg Q4H PRN PO TEMPERATURE > 101.5 F; Start at 11:30 Meperidine HCl (*DEMEROL INJ PERIprocedural ONLY) 25 mg STK-MED ONCE .ROUTE Last administered on 12/27/16 11:21; Start 12/27/16 at 11:21; Stop 12/27/16 at 11:22; Status DC Calcium Gluconate 1 gm/Sodium Chloride 110 ml @ 110 mls/hr UNSCH PRN IV SEE LABEL COMMENT; Start 12/27/16 at 12:00; Stop 01/10/17 at 16:51; Status DC Miscellaneous Information ALL NURSING DEPARTME... UNSCH PRN .XX SEE LABEL COMMENTS; Start 12/27/16 at 11:45; Stop 12/28/16 at 11:44; Status DC Levetriacetam 500 mg/Sodium Chloride 105 ml @ 400 mls/hr Q12H IV ; Start 12/27 at 22:00; Status Cancel Levetriacetam (Keppra Liq) 500 mg Q12HR PEG Last administered on 01/13/17 08: 44; Start 12/27/16 at 21:00; Stop 01/13/17 at 12:47; Status DC Iohexol (Omnipaque 350 Inj) 85 ml STK-MED ONCE IVCONTRAST Last administered on 12/28/16 17:46; Start 12/28/16 at 17:46; Stop 12/28/16 at 17:47; Status DC Bacitracin (Bacitracin Oint Packet) 0.9 gm DAILY TOPICAL Last administered on 01/15/17 09:25; Start 12/30/16 at 18:31 Date of Insertion: Dec 04, 2016 Line: Central Venous Catheter Side: Left Location: Internal, Jugular A/P Problem List: (1) Subarachnoid hemorrhage due to ruptured aneurysm ICD Code: I60.8 - Other nontraumatic subarachnoid hemorrhage (2) Subdural hematoma ICD Code: I62.00 - Nontraumatic subdural hemorrhage, unspecified (3) Intracranial aneurysm ICD Code: I67.1 - Cerebral aneurysm, nonruptured (4) Respiratory failure ICD Code: J96.90 - Respiratory failure, unspecified, unspecified whether with hypoxia or hypercapnia Status: Acute Assessment and Plan 1. Subdural Hematoma/duraplasty status post left frontotemporal parietal craniotomy 10/08. 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 Initiated . - 10/13 and 10/14 and 10/17) 10/19 left MCA territory vasospasm, status post successful verapamil treatment by IR with 20 mg verapamil - 10/17 CT brain - less hemisphere edema with herniation through left craniotomy site, improved. - Dr. Perry/neurosurgery. S/p left cranioplasty/bone flap 12/27/16. - Echocardiogram 10/14/16 revealed EF 40-45%. Septal hypokinesis. Moderate MR. Severe pulmonary hypertension with pulmonary artery pressures estimated 61 mmHg Limited Echo 11/06: LVEF 60-65%, Trivial mitral and tricuspid regurgitation, No vegetations noted. - On diltiazem's 90 mg by mouth every 6 hours and furosemide 20 mg daily. Monitor BP and if low hold meds. - neurologically stable and doing well, and continued PT and rehabilitation. - PT, OT, speech following. Patient had helmet. -Eating better. Respiratory failure, S/P tracheostomy. Resolved now satting well on Room air. Monitor O2 sat, O2 supplement to keep O2 sat > 94 - S/p Trach Dr. Sullivan/Dr. Collazo 11/01 #8 [place] - CT angiogram chest/neck revealed right centrilobular bleeding likely source right bronchial artery. Repeat CT chest 11/29no visualization of active bleeding.- Resolved - 12/01 - embolization of right bronchial artery by IR- no further bleeding from tracheostomy - Redo trach 11/[address] Sullivan[address]now trach has been removed. - Albuterol/ipratropium aerosols every 6 hours with albuterol aerosols - trach removed Lower extremity edema improved. Ultrasound Doppler reviewed and no DVT. Patient with high risk of bleeding and is not chemoprophylaxis at this time. Continue SCDs and teds for DVT prophylaxis. Ileus- Resolved Elevated transaminases Hyperammonemia Severe protein caloric malnutrition- continue with tube feeds as tolerated. - Currently on tube feeding with tray. - speech following for swallowing progress -care connector following. Right occlusive subclavian, axillary and bilateral superficial cephalic thrombus - limited Echo to evaluate vegetation-neg. 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 Cardizem PO currently and 90 mg every 6 hours (for digital ischemia, Raynaud's) - Continue bacitracin twice a day to affected areas - Central line for IV access. We'll need to be started on systemic anticoagulation at some point however with recent embolization for hemoptysis holding full anticoagulation at this time. - evaluated by vascular surgery and no interventions recommended at this time. Stage 2 sacral ulcer - ABD dressing with [employer]- staff nurse makes sure to keep area dry. Wound care also consulted. appreciate recommendations. - Turn position every 2 hours - Out of bed to chair activity Course of hospitalization complications Acute hypoxic Respiratory failure secondary to mucous plugging- Resolved Possible healthcare associated pneumonia, Septic Shock- resolved. ARDS - resolved Noncardiogenic/neurogenic pulmonary edema- resolved. Massive Hemoptysis - resolved Aspiration pneumonitis - resolved Cerebral Salt Wasting/SIADH-resolved now hypernatremic - Creatinine currently within normal limits -> resolved. - Monitor urine output Septic and cardiogenic shock- resolved. LV dysfunction secondary to SAH - persistent, now resolved Elevated troponin- secondary to SAH, unlikely to be ACS. - resolved. Pulmonary hypertension s/p PEA arrest 11/28 after ETT dislodgement, hypoxic arrest DVT prop SCD, no chemoprophylaxis secondary to risk for bleeding. Problem Qualifiers (1) Respiratory failure: Qualified Codes: J96.00 - Acute respiratory failure, unspecified whether with hypoxia or hypercapnia Kristina Juárez MD Jan 16, 2017 08:51
[2017-01-16] MEDS: BACITRACIN TOP OINT 15 GM TUBE TOPICAL SCH ×2 (09:00→21:00)
[2017-01-16] MEDS: LACTOBACILLUS ACIDOPHILUS TAB PO SCH ×3 (09:01→17:03)
[2017-01-16] MEDS: ASCORBIC ACID 500 MG TAB PO SCH ×2 (09:01→21:30)
[2017-01-16] MEDS: DOCUSATE SODIUM 100 MG CAP PO SCH ×2 (09:01→21:28)
[2017-01-16] MEDS: FAMOTIDINE 20 MG TAB PO SCH ×2 (09:01→21:28)
[2017-01-16] MEDS: BACITRACIN OINT 0.9 GM PKT TOPICAL SCH (09:02)
[2017-01-16] MEDS: ARTIFICIAL TEARS OPTH SOLN 15 ML BTL EACH EYE SCH ×3 (09:03→17:03)
[2017-01-16] MEDS: COLLAGENASE OINT 30 GM TUBE TOPICAL SCH (09:03)
[2017-01-16 12:09] VITALS: BP 123/79; PULSE 77; RESP 16; TEMP 98.1; O2SAT 97
[2017-01-16] MEDS: FERROUS SULFATE 325 MG (65 MG ELEMENTAL IRON) TAB PO SCH ×2 (12:26→17:03)
[2017-01-16 16:12] VITALS: BP 114/72; PULSE 86; RESP 16; TEMP 98.6; O2SAT 97
[2017-01-16 20:35] VITALS: BP 116/73; PULSE 82; RESP 20; TEMP 98.5; O2SAT 98
[2017-01-16] MEDS: MELATONIN 5 MG TAB PO SCH (21:29)
[2017-01-17] MEDS: DILTIAZEM HCL 90 MG TAB PO SCH ×4 (00:32→17:10)
[2017-01-17 00:39] VITALS: BP 134/84; PULSE 75; RESP 18; TEMP 99.4; O2SAT 98
[2017-01-17 05:24] VITALS: BP 130/77; PULSE 72; RESP 18; TEMP 98.5; O2SAT 97
[2017-01-17] MEDS: CHLORHEXIDINE 0.12% (ORAL KIT) 15 ML CUP MT SCH ×2 (08:00→20:00)
[2017-01-17 08:05] VITALS: BP 123/80; PULSE 75; RESP 16; TEMP 98.2; O2SAT 97
[2017-01-17] MEDS: BACITRACIN OINT 0.9 GM PKT TOPICAL SCH (08:42)
[2017-01-17] MEDS: DOCUSATE SODIUM 100 MG CAP PO SCH ×2 (08:42→20:59)
[2017-01-17] MEDS: FAMOTIDINE 20 MG TAB PO SCH ×2 (08:42→20:59)
[2017-01-17] MEDS: COLLAGENASE OINT 30 GM TUBE TOPICAL SCH (08:43)
[2017-01-17] MEDS: ARTIFICIAL TEARS OPTH SOLN 15 ML BTL EACH EYE SCH ×3 (08:43→17:10)
[2017-01-17] MEDS: LACTOBACILLUS ACIDOPHILUS TAB PO SCH ×3 (08:43→17:10)
[2017-01-17] MEDS: ASCORBIC ACID 500 MG TAB PO SCH ×2 (08:43→20:59)
[2017-01-17] MEDS: BACITRACIN TOP OINT 15 GM TUBE TOPICAL SCH ×2 (08:44→21:00)
--- NOTE | 2017-01-17 08:49 | HHI.PR ---
Subjective Remarks in no acute distress. denies pain. good oral intake. d/w the RN and no acute issues over night. Objective Vitals Vital Signs Date Time Temp Pulse Resp B/P (MAP) Pulse Ox O2 Delivery O2 Flow Rate FiO2 01/17/17 08:05 98.2 75 16 123/80 (94) 97 01/17/17 05:24 98.5 72 18 130/77 (94) 97 01/17/17 00:39 99.4 75 18 134/84 (101) 98 01/16/17 20:35 98.5 82 20 116/73 (87) 98 01/16/17 16:12 98.6 86 16 114/72 (86) 97 01/16/17 12:09 98.1 77 16 123/79 (94) 97 I/O 01/16/17 01/16/17 01/16/17 01/17/17 01/17/17 01/17/17 07:00 15:00 23:00 07:00 15:00 23:00 Intake Total 480 ml 422 ml Output Total 1400 ml 700 ml 1000 ml 200 ml Balance -1400 ml -220 ml -578 ml -200 ml Intake Oral 480 ml Tube Feeding 322 ml Other 100 ml Output Urine Total 1400 ml 700 ml 1000 ml 200 ml Imaging Last Impressions Lower Extremity Ultrasound 12/29/16 0000 Signed Impressions: Service Date/Time: December 13:07 - CONCLUSION: No sonographic or Doppler findings of deep venous thrombosis. Joni Shelton MD Carotid Artery Ultrasound 12/27/16 0000 Signed Impressions: Service Date/Time: Tuesday, December 27, 2016 17:19 - CONCLUSION: Mild plaque at the carotid bulb regions bilaterally without a significant stenosis seen. Yosvany Alfaro MD Aorta w/Runoff CTA 12/27/16 0000 Signed Impressions: Service Date/Time: Wednesday, December 28, 2016 17:28 - CONCLUSION: Atherosclerotic calcification seen throughout the arterial system without an area of significant stenosis. The trifurcation vessels are only faintly opacified. Yosvany Alfaro MD Modified Barium Swallow 12/23/16 0000 Signed Impressions: Service Date/Time: Friday, December 23, 2016 09:11 - CONCLUSION: Negative for aspiration.. Remington Woodward MD FACR Chest X-Ray 12/04/16 8430 Signed Impressions: Service Date/Time: Sunday, December 04, 2016 18:55 - CONCLUSION: 1. Placement of left central line tip in superior vena cava. No pneumothorax. Mild basilar airspace disease. Small right effusion. Gurwinder Root MD Upper Extremity Ultrasound 12/04/16 0000 Signed Impressions: Service Date/Time: Sunday, December 04, 2016 15:37 - CONCLUSION: 1. Positive for occlusive deep venous thrombosis in the right axillary and subclavian vein. Occlusive superficial thrombus in bilateral cephalic veins. Gurwinder Root MD Angiography 12/01/16 0000 Signed Impressions: Service Date/Time: November 14:02 - CONCLUSION: 1. Right side up on her hemorrhage with angiography of the right bronchial artery revealing no source of active hemorrhage. Empiric embolization was performed. Santos Crockett Jr., MD Chest CT 11/28/16 0000 Signed Impressions: Service Date/Time: Tuesday, November 29, 2016 05:13 - CONCLUSION: 1. Patchy alveolar disease characteristic of edema or pneumonia. 2. Severe emphysema 3. Gastrojejunostomy tube looped in the stomach Harvey Morejon MD Chest/Thorax CTA 11/26/16 0000 Signed Impressions: Service Date/Time: Saturday, November 26, 2016 20:18 - CONCLUSION: 1. Extensive filling defects within the right central bronchial tree characteristic of endobronchial hemorrhage. 2. Consolidating airspace disease in the right upper lobe and right lower lobe characteristic of hemorrhage and post obstructive lung consolidation. 3. Right bronchial artery is identified extending to the central right bronchial region 4. Advanced COPD. Nasir Amanda MD Abdomen X-Ray 11/19/16599 Signed Impressions: Service Date/Time: Saturday, November 19, 2016 02:44 - CONCLUSION: Unchanged bowel gas pattern potentially relating to an ileus. Santos Crockett Jr., MD Transcranial Doppler Study Complete 10/20/16599 Signed Impressions: Service Date/Time: October 07:54 - CONCLUSION: Slight interval elevation of flow velocity measurements and ratio on the left Yosvany Polk MD Liver Ultrasound 10/19/16 0000 Signed Impressions: Service Date/Time: Wednesday, October 19, 2016 11:20 - CONCLUSION: 1. Sludge filled gallbladder with thickened wall. 2. Moderate size bilateral pleural effusions and mild upper abdominal ascites. Santos Vazquez MD Cerebral Arteriogram 10/19/16 0000 Signed Impressions: Service Date/Time: Wednesday, October 19, 2016 12:47 - CONCLUSION: Uncomplicated cerebral arteriography with spasmolytic therapy as described in detail above. Yosvany Polk MD Head CT 10/17/16 0000 Signed Impressions: Service Date/Time: Monday, October 17, 2016 15:06 - CONCLUSION: Ventricles are slightly larger without ventriculostomy. Edema in the left hemisphere the brain herniating through the operative site. Remington Woodward MD FACR Infusion Non-thrombolysis 10/14/16 1103 Signed Impressions: Service Date/Time: Friday, October 14, 2016 10:21 - CONCLUSION: 1. Uncomplicated infusion for spasmolysis Harvey Morejon MD Neck CTA 10/07/16 0000 Signed Impressions: Service Date/Time: Friday, October 07, 2016 15:03 - CONCLUSION: 1. Mild carotid bulb atherosclerotic calcification bilaterally. However, no significant stenosis is present in either internal carotid artery. 2. Paranasal sinus mucoperiosteal thickening. 3. Please refer to brain CTA report for description of the intracranial findings. Yosvany Ramirez MD Head CTA 10/07/16 0000 Signed Impressions: Service Date/Time: Friday, October 07, 2016 15:03 - CONCLUSION: 1. 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 2. Large left subdural hematoma measuring 1.3 cm in depth with a significant, 1.6 cm left to right subfalcine shift. Joni Shelton MD Objective Remarks GENERAL: This is a well-nourished, well-developed patient, in no apparent distress. CARDIOVASCULAR: Regular rate and regular rhythm without murmurs, gallops, or rubs. RESPIRATORY: Clear to auscultation. Breath sounds equal bilaterally. No wheezes , rales, or rhonchi. GASTROINTESTINAL: Abdomen soft, non-tender, nondistended. Normal, active bowel sounds MUSCULOSKELETAL: Extremities without clubbing, cyanosis, or edema. NEURO: awake and alert. Procedures 10/13 Four-vessel cerebral angiography with verapamil treatment of vasospasm Status post left frontotemporal parietal craniectomy 10/08 for evacuation subdural hematoma/duraplasty. 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 parietal cranioplasty with replacement of skull flap by Dr Perry neurosurgery on 12/27/16 Medications and IVs Current Medications Iohexol (Omnipaque 350 Inj) 100 ml STK-MED ONCE IVCONTRAST Last administered on 10/07/16 14:21; Start 10/07/16 at 14:21; Stop 10/07/16 at 15:21; Status DC Mannitol 50 ml @ As Directed STK-MED ONCE .ROUTE ; Start 10/07/16 at 15:25; Stop 10/07/16 at 15:26; Status DC Propofol 0 ml @ As Directed STK-MED ONCE .ROUTE ; Start 10/07/16 at 15:25; Stop 10/07/16 at 15:26; Status DC Levetriacetam (Keppra Inj) 1,000 mg STK-MED ONCE IV Last administered on 18:30; Start 10/07/16 at 15:27; Stop 10/07/16 at 15:28; Status DC Mannitol (Mannitol Inj) 50 gm ONCE ONCE IV Last administered on 10/13/16 21: 00; Start 10/07/16 at 15:30; Stop 10/07/16 at 15:31; Status DC Nicardipine HCl 25 mg/Sodium Chloride 260 ml @ 52 mls/hr Q5H PRN IV Blood pressure management; Start 10/07/16 at 15:40; Stop 10/14/16 at 21:02; Status DC Propofol 100 ml @ 0 mls/hr Q0M PRN IV Ordered RASS Last administered on 23:01; Start 10/07/16 at 15:40; Stop 10/07/16 at 23:16; Status DC Sodium Chloride 1,000 ml @ 75 mls/hr [id number] IV ; Start 10/07/16 at 16:08; Stop 10/07/16 at 18:34; Status DC Sodium Chloride (NS Flush) 2 ml UNSCH PRN IV FLUSH FLUSH AFTER USING IV ACCESS ; Start 10/07/16 at 16:15; Stop 10/07/16 at 18:40; Status DC Sodium Chloride (NS Flush) 2 ml BID IV FLUSH ; Start 10/07/16 at 21:00; Stop at 21:00; Status DC Acetaminophen (Tylenol) 650 mg Q6H PRN PO PAIN 1-10 AND/OR FEVER >101F; Start 10/07/16 at 16:15; Stop 10/07/16 at 19:04; Status DC Albuterol/ Ipratropium (Duoneb Neb) 1 ampule Q6HR NEB NEB Last administered on 10/11/16 15:16; Start 10/07/16 at 22:00; Stop 10/11/16 at 21:59; Status DC Albuterol/ Ipratropium (Duoneb Neb) 1 ampule Q4HR NEB PRN INH SHORTNESS OF BREATH Last administered on 10/14/16 19:33; Start 10/07/16 at 16:15; Stop at 09:43; Status DC Chlorhexidine Gluconate (Peridex 0.12% Liq) 15 ml BID@08,20 MT Last administered on 11/28/16 08:00; Start 10/07/16 at 20:00; Stop 11/28/16 at 11: 18; Status DC Pantoprazole Sodium (Protonix Inj) 40 mg DAILY IV ; Start 10/08/16 at 09:00; Stop 10/08/16 at 09:00; Status DC Miscellaneous Information 1 [id number] ; Start 10/07/16 at 16:15; Stop 10/19/16 at 12:07; Status DC Chlorhexidine Gluconate (Chlorhexidine 2% Cloth) Taper DAILY@04 TOP Last administered on 10/19/16 03:13; Start 10/08/16 at 04:00; Stop 10/19/16 at 12:07; Status DC Chlorhexidine Gluconate (Chlorhexidine 2% Cloth) 3 pack UNSCH PRN TOP HYGIENIC CARE; Start 10/07/16 at 16:15; Stop 10/19/16 at 12:07; Status DC Insulin Aspart (NovoLOG SUPPLEMENTAL SCALE) 1 Q6HR SQ Last administered on 06:40; Start 10/07/16 at 18:00; Stop 10/20/16 at 09:23; Status DC Propofol 100 ml @ 0 mls/hr Q0M PRN IV SEDATION; Start 10/07/16 at 16:08; Status UNV Nimodipine (Nimotop) 60 mg Q4HR OG-TUBE Last administered on 10/12/16 15:18; Start 10/07/16 at 20:00; Stop 10/12/16 at 23:47; Status DC Verapamil HCl (Isoptin Inj) 10 mg STK-MED ONCE .ROUTE ; Start 10/07/16 at 16:45 ; Stop 10/07/16 at 16:46; Status DC Nitroglycerin (Nitroglycerin 2% Oint) 1 inch STK-MED ONCE .ROUTE ; Start at 16:55; Stop 10/07/16 at 16:56; Status DC Heparin Sodium (Porcine) (Heparin Inj) 10,000 units STK-MED ONCE .ROUTE ; Start 10/07/16 at 16:56; Stop 10/07/16 at 16:57; Status DC Potassium Chloride/Sodium Chloride 1,000 ml @ 100 mls/hr Q10H IV Last administered on 10/14/16 07:08; Start 10/07/16 at 18:20; Stop 10/14/16 at 21:02; Status DC IV Flush (NS Flush) 2 ml UNSCH PRN IVF FLUSH AFTER USING IV ACCESS; Start 10/07 at 18:30; Stop 10/19/16 at 12:09; Status DC IV Flush (NS Flush) 2 ml BID IVF Last administered on 10/19/16 09:00; Start at 21:00; Stop 10/19/16 at 12:09; Status DC Cefazolin Sodium/ Dextrose 50 ml @ 100 mls/hr Q8H IV Last administered on 10/08 10:30; Start 10/07/16 at 19:00; Stop 10/08/16 at 11:29; Status DC Levetriacetam 500 mg/Sodium Chloride 105 ml @ 400 mls/hr Q12H IV Last administered on 10/31/16 05:11; Start 10/08/16 at 06:00; Stop 10/31/16 at 10:47 ; Status DC Bisacodyl (Dulcolax Supp) 10 mg DAILY PRN RECTAL CONSTIPATION; Start 10/07/16 at 18:30; Stop 10/31/16 at 10:47; Status DC Docusate Sodium (Colace) 100 mg BID PO Last administered on 10/19/16 09:00; Start 10/07/16 at 21:00; Stop 10/19/16 at 12:15; Status DC Pantoprazole Sodium (Protonix) 40 mg DAILY PO Last administered on 10/14/16 07: 47; Start 10/08/16 at 09:00; Stop 10/19/16 at 09:46; Status DC Pantoprazole Sodium (Protonix Inj) 40 mg DAILY IVP Last administered on 07:45; Start 10/08/16 at 09:00; Stop 10/12/16 at 14:30; Status DC Ondansetron HCl (Zofran Inj) 4 mg Q6H PRN IV NAUSEA OR VOMITING Last administered on 11/13/16 20:31; Start 10/07/16 at 18:30; Stop 12/08/16 at 13: 55; Status DC Calcium Gluconate (Calcium Gluconate Inj) 1 gm UNSCH PRN IV SEE LABEL COMMENTS Last administered on 10/16/16 10:00; Start 10/07/16 at 18:30; Stop 11/17/16 at 14:34; Status DC Potassium Chloride 100 ml @ 50 mls/hr UNSCH PRN IV POTASSIUM LESS THAN 4 Last administered on 12/02/16 08:13; Start 10/07/16 at 18:30; Stop 12/16/16 at 15: 01; Status DC Magnesium Sulfate 4 gm/Sodium Chloride 108 ml @ 108 mls/hr UNSCH PRN IV MAGNESIUM LESS THAN 2; Start 10/07/16 at 18:30; Stop 12/27/16 at 11:35; Status DC Acetaminophen/ Hydrocodone Bitart ([place] 10-325 Mg) 1 tab Q4H PRN PO PAIN SCALE 1 TO 5 Last administered on 10/13/16 13:07; Start 10/07/16 at 18:30; Stop 10/15/16 at 08:05; Status DC Acetaminophen/ Hydrocodone Bitart ([place] 10-325 Mg) 2 tab Q4H PRN PO PAIN SCALE 6 TO 10 Last administered on 10/09/16 10:20; Start 10/07/16 at 18:30; Stop 10/15/16 at 08:05; Status DC Morphine Sulfate (Morphine Inj) 2 mg Q2H PRN IV PUSH PAIN SCALE 1 TO 6 Last administered on 10/10/16 17:52; Start 10/07/16 at 18:30; Stop 10/15/16 at 08:05 ; Status DC Morphine Sulfate (Morphine Inj) 4 mg Q2H PRN IV PUSH PAIN SCALE 7 TO 10 Last administered on 10/08/16 01:55; Start 10/07/16 at 18:30; Stop 10/15/16 at 08:05 ; Status DC Acetaminophen (Tylenol) 650 mg Q4H PRN PO TEMP >100.4 Last administered on 11/14 03:07; Start 10/07/16 at 18:30; Stop 11/30/16 at 13:12; Status DC Iodixanol (VISIPAQUE 320 INJ (Rad Spec)) 65 ml STK-MED ONCE I-ARTERIAL Last administered on 10/07/16 18:38; Start 10/07/16 at 18:38; Stop 10/07/16 at 18:39 ; Status DC Dextrose (D50w (Vial) Inj) 50 ml UNSCH PRN IV PUSH HYPOGLYCEMIA - SEE COMMENTS Last administered on 11/01/16 09:22; Start 10/07/16 at 19:15; Stop 11/12/16 at 08:41; Status DC Glucagon (Glucagon Inj) 1 mg UNSCH PRN OTHER HYPOGLYCEMIA-SEE COMMENTS; Start 10/07/16 at 19:15; Stop 11/12/16 at 08:42; Status DC Midazolam HCl (Versed Inj) 4 mg STK-MED ONCE .ROUTE ; Start 10/07/16 at 19:51; Stop 10/07/16 at 19:52; Status DC Fentanyl Citrate (fentaNYL INJ) 250 mcg STK-MED ONCE .ROUTE ; Start 10/07/16 at 20:32; Stop 10/07/16 at 20:33; Status DC Propofol 100 ml @ 0 mls/hr TITRATE PRN IV Sedation Last administered on 05:31; Start 10/07/16 at 23:15; Stop 11/01/16 at 14:52; Status DC Epinephrine HCl (EPINEPHrine (1:10,000) INJ) 1 mg STK-MED ONCE .ROUTE ; Start at 04:09; Stop 10/09/16 at 04:10; Status DC Atropine Sulfate (Atropine Inj) 1 mg STK-MED ONCE .ROUTE ; Start 10/09/16 at 04: 09; Stop 10/09/16 at 04:10; Status DC Lidocaine HCl (Xylocaine 2% Inj) 100 mg STK-MED ONCE .ROUTE ; Start 10/09/16 at 04:09; Stop 10/09/16 at 04:10; Status DC Nimodipine (Nimotop) 60 mg Q4HR PO Last administered on 11/02/16 20:23; Start 10/13/16 at 00:00; Stop 11/02/16 at 23:59; Status DC Verapamil HCl (Isoptin Inj) 20 mg STK-MED ONCE .ROUTE Last administered on 10/13 17:10; Start 10/13/16 at 17:10; Stop 10/13/16 at 17:11; Status DC Iodixanol (VISIPAQUE 320 INJ (Rad Spec)) 45 ml STK-MED ONCE I-ARTERIAL Last administered on 10/13/16 17:40; Start 10/13/16 at 17:49; Stop 10/13/16 at 17:50 ; Status DC Midazolam HCl (Versed Inj) 2 mg STK-MED ONCE .ROUTE ; Start 10/13/16 at 18:32; Stop 10/13/16 at 18:33; Status DC Fentanyl Citrate (fentaNYL INJ) 200 mcg STK-MED ONCE .ROUTE ; Start 10/13/16 at 18:32; Stop 10/13/16 at 18:33; Status DC Sodium Chloride 2,000 ml @ 0 mls/hr Q0M IV Last administered on 10/14/16 20:20 ; Start 10/13/16 at 21:45; Stop 10/14/16 at 23:59; Status DC Phenylephrine HCl (Neosynephrine Inj) 10 mg STK-MED ONCE .ROUTE Last administered on 10/14/16 09:10; Start 10/14/16 at 09:10; Stop 10/14/16 at 09:11; Status DC Verapamil HCl (Isoptin Inj) 20 mg STK-MED ONCE .ROUTE Last administered on 10:19; Start 10/14/16 at 10:19; Stop 10/14/16 at 10:20; Status DC Fentanyl Citrate (fentaNYL INJ) 100 mcg STK-MED ONCE .ROUTE Last administered on 10/14/16 10:32; Start 10/14/16 at 10:32; Stop 10/14/16 at 10:33; Status DC Midazolam HCl (Versed Inj) 2 mg STK-MED ONCE .ROUTE Last administered on 10:32; Start 10/14/16 at 10:32; Stop 10/14/16 at 10:33; Status DC Midazolam HCl (Versed Inj) 2 mg STK-MED ONCE .ROUTE ; Start 10/14/16 at 10:32; Stop 10/14/16 at 10:33; Status DC Vasopressin 40 units/Dextrose 100 ml @ 4.5 mls/hr [id number] IV Last administered on 10/25/16 02:30; Start 10/14/16 at 11:30; Stop 10/31/16 at 10:47 ; Status DC Albumin Human (Albumin 5% Inj) 25 gm ONCE ONCE IV Last administered on 11:34; Start 10/14/16 at 11:15; Stop 10/14/16 at 11:17; Status DC Iodixanol (VISIPAQUE 320 INJ (Rad Spec)) 10 ml STK-MED ONCE I-ARTERIAL Last administered on 10/14/16 11:06; Start 10/14/16 at 11:06; Stop 10/14/16 at 11:07; Status DC Fludrocortisone Acetate (Florinef) 0.1 mg BID PO Last administered on 10/15/16 11:39; Start 10/14/16 at 11:45; Stop 10/15/16 at 13:17; Status DC Phenylephrine HCl (Neosynephrine Inj) 10 mg STK-MED ONCE .ROUTE Last administered on 10/14/16 12:18; Start 10/14/16 at 12:18; Stop 10/14/16 at 12:19; Status DC Norepinephrine Bitartrate 250 ml @ As Directed STK-MED ONCE IV ; Start 10/14/16 at 13:14; Stop 10/14/16 at 13:15; Status DC Norepinephrine Bitartrate (Levophed Inj) 4 mg STK-MED ONCE .ROUTE Last administered on 10/14/16 13:15; Start 10/14/16 at 13:15; Stop 10/14/16 at 13:16; Status DC Etomidate (Amidate Inj) 20 mg STK-MED ONCE .ROUTE Last administered on 14:18; Start 10/14/16 at 13:44; Stop 10/14/16 at 13:45; Status DC Midazolam HCl (Versed Inj) 5 mg STK-MED ONCE .ROUTE Last administered on 14:18; Start 10/14/16 at 13:44; Stop 10/14/16 at 13:45; Status DC Rocuronium [place] (Zemuron Inj) 50 mg STK-MED ONCE .ROUTE Last administered on 10/14/16 14:17; Start 10/14/16 at 13:45; Stop 10/14/16 at 13:46; Status DC Fentanyl Citrate 250 ml @ 5 mls/hr TITRATE PRN IV SEDATION Last administered on 10/30/16 17:39; Start 10/14/16 at 15:00; Stop 11/01/16 at 14:52; Status DC Phenylephrine HCl (Neosynephrine Inj) 10 mg STK-MED ONCE .ROUTE Last administered on 10/14/16 14:26; Start 10/14/16 at 14:26; Stop 10/14/16 at 14:27; Status DC Norepinephrine Bitartrate 4 mg/ Sodium Chloride 250 ml @ 7.5 mls/hr TITRATE PRN IV Blood pressure management Last administered on 10/15/16 15:05; Start 10/14 at 14:45; Stop 10/15/16 at 14:54; Status DC Terbutaline Sulfate (Brethine Inj) 1 mg UNSCH PRN SQ For Extravasation; Start 10/14/16 at 14:45; Stop 10/19/16 at 12:10; Status DC Rocuronium [place] (Zemuron Inj) 50 mg STK-MED ONCE .ROUTE Last administered on 10/14/16 14:43; Start 10/14/16 at 14:43; Stop 10/14/16 at 14:44; Status DC Midazolam HCl 100 ml @ 2 mls/hr TITRATE PRN IV SEDATION Last administered on 22:54; Start 10/14/16 at 15:00; Stop 10/25/16 at 08:47; Status DC Phenylephrine HCl (Neosynephrine Inj) 10 mg STK-MED ONCE .ROUTE ; Start 10/14/16 at 18:03; Stop 10/14/16 at 18:04; Status DC Phenylephrine HCl 40 mg/Dextrose 500 ml @ 30 mls/hr TITRATE PRN IV Blood pressure management Last administered on 10/15/16 15:02; Start 10/14/16 at 18:30 ; Stop 10/15/16 at 15:36; Status DC Terbutaline Sulfate (Brethine Inj) 1 mg UNSCH PRN SQ For Extravasation; Start 10/14/16 at 18:15; Stop 10/15/16 at 08:05; Status DC Heparin Sodium (Porcine) (Heparin Inj) 5,000 units Q8HR SQ Last administered on 11/13/16 21:20; Start 10/14/16 at 22:00; Status Future Hold Isoproterenol HCl 2 mg/Dextrose 260 ml @ 23.4 mls/hr TITRATE PRN IV Hypotension Last administered on 10/14/16 21:26; Start 10/14/16 at 21:00; Stop at 16:24; Status DC Sodium Chloride 1,000 ml @ 50 mls/hr Q20H IV Last administered on 10/15/16 09: 54; Start 10/14/16 at 21:15; Stop 10/16/16 at 09:17; Status DC Phenylephrine HCl (Neosynephrine Inj) 40 mg STK-MED ONCE .ROUTE ; Start 10/14/16 at 23:30; Stop 10/14/16 at 23:31; Status DC Phenylephrine HCl (Neosynephrine Inj) 10 mg STK-MED ONCE .ROUTE ; Start 10/14/16 at 23:31; Stop 10/14/16 at 23:32; Status DC Epinephrine HCl 2 mg/Dextrose 252 ml @ 22.68 mls/ hr TITRATE PRN IV Blood Pressure Management Last administered on 10/15/16 15:03; Start 10/15/16 at 02:00 ; Stop 10/15/16 at 14:54; Status DC Epinephrine HCl (Adrenalin (1:1000) Inj) 2 mg STK-MED ONCE .ROUTE ; Start at 01:59; Stop 10/15/16 at 02:00; Status DC Lorazepam (Ativan Inj) 2 mg STK-MED ONCE .ROUTE ; Start 10/15/16 at 02:13; Stop 10/15/16 at 02:14; Status DC Epoprostenol Sodium 75 ml/ Sodium Chloride 100 ml @ 8 mls/hr Q8H NEB Last administered on 10/21/16 15:25; Start 10/15/16 at 03:00; Stop 10/21/16 at 16:05; Status DC Lorazepam (Ativan Inj) 2 mg ONCE ONCE IV PUSH Last administered on 10/15/16 03 :33; Start 10/15/16 at 02:30; Stop 10/15/16 at 02:37; Status DC Fosphenytoin Sodium 1000 mgpe/ Sodium Chloride 70 ml @ 280 mls/hr ONCE ONCE IV Last administered on 10/15/16 03:32; Start 10/15/16 at 02:30; Stop 10/15/16 at 02:44; Status DC Fosphenytoin Sodium (Cerebyx Inj) 100 mgpe Q8HR IV Last administered on 06:28; Start 10/15/16 at 10:00; Stop 10/25/16 at 14:25; Status DC Calcium Chloride 1 gm/Sodium Chloride 110 ml @ 110 mls/hr ONCE ONCE IV Last administered on 10/15/16 03:52; Start 10/15/16 at 03:15; Stop 10/15/16 at 04:14; Status DC Pharmacy Profile Note 0 ml @ 0 mls/hr UNSCH OTHER ; Start 10/15/16 at 03:30; Stop 10/18/16 at 07:20; Status DC Cefepime HCl 2000 mg/Sodium Chloride 100 ml @ 200 mls/hr Q8H IV Last administered on 10/18/16 03:34; Start 10/15/16 at 04:00; Stop 10/18/16 at 07:20; Status DC Azithromycin 500 mg/Sodium Chloride 250 ml @ 250 mls/hr Q24H IV Last administered on 10/18/16 03:34; Start 10/15/16 at 04:00; Stop 10/18/16 at 07:20; Status DC Albuterol/ Ipratropium (Duoneb Neb) 1 ampule Q4HR WHILE AWAKE NEB NEB Last administered on 10/18/16 20:21; Start 10/15/16 at 08:00; Stop 10/19/16 at 07:59; Status DC Vancomycin HCl 1000 mg/Sodium Chloride 250 ml @ 250 mls/hr ONCE ONCE IV Last administered on 10/15/16 07:02; Start 10/15/16 at 05:00; Stop 10/15/16 at 05:59; Status DC Hydrocortisone Sodium Succinate (SoluCORTEF INJ) 100 mg Q8H IV PUSH Last administered on 10/22/16 04:34; Start 10/15/16 at 04:00; Stop 10/22/16 at 10:29; Status DC Phenylephrine HCl (Neosynephrine Inj) 20 mg STK-MED ONCE .ROUTE ; Start 10/15/16 at 04:35; Stop 10/15/16 at 04:36; Status DC Sodium Chloride 500 ml @ 30 mls/hr CONTINUOUS IV Last administered on 11:43; Start 10/15/16 at 08:00; Stop 10/22/16 at 10:29; Status DC Calcium Gluconate 2 gm/Sodium Chloride 120 ml @ 120 mls/hr ONCE ONCE IV Last administered on 10/15/16 09:26; Start 10/15/16 at 09:00; Stop 10/15/16 at 09:59; Status DC Albumin Human (Albumin 5% Inj) 12.5 gm STK-MED ONCE IV Last administered on 10/15 09:17; Start 10/15/16 at 09:17; Stop 10/15/16 at 09:18; Status DC Rocuronium [place] (Zemuron Inj) 50 mg STK-MED ONCE .ROUTE Last administered on 10/15/16 09:50; Start 10/15/16 at 09:50; Stop 10/15/16 at 09:51; Status DC Vancomycin HCl 1250 mg/Sodium Chloride 262.5 ml @ 262.5 mls/ hr Q12H IV Last administered on 10/17/16 05:57; Start 10/15/16 at 18:00; Stop 10/17/16 at 09:41; Status DC Miscellaneous Information SPECIFIC LAB TO BE LI... ONCE ONCE .XX Last administered on 10/17/16 05:45; Start 10/17/16 at 05:45; Stop 10/17/16 at 05:46; Status DC Cisatracurium Besylate 100 mg/ Sodium Chloride 260 ml @ 11.24 mls/ hr TITRATE PRN IV TOF / Last administered on 10/21/16 12:59; Start 10/15/16 at 13:00; Stop 10/31/16 at 10:47; Status DC Sodium Chloride 240 meq/Syringe / Bag 60 ml @ 120 mls/hr ONCE ONCE IV Last administered on 10/15/16 13:25; Start 10/15/16 at 13:15; Stop 10/15/16 at 13:44; Status DC Sodium Chloride (Sodium Chloride) 3 gm TID PO Last administered on 11/04/16 10 :18; Start 10/15/16 at 13:15; Stop 11/04/16 at 11:21; Status DC Fludrocortisone Acetate (Florinef) 0.2 mg BID PO Last administered on 10/16/16 08:12; Start 10/15/16 at 21:00; Stop 10/16/16 at 09:12; Status DC Epinephrine HCl 2 mg/Dextrose 252 ml @ 22.68 mls/ hr TITRATE PRN IV Blood Pressure Management; Start 10/15/16 at 15:00; Stop 10/15/16 at 15:32; Status DC Norepinephrine Bitartrate 4 mg/ Sodium Chloride 250 ml @ 7.5 mls/hr TITRATE PRN IV Blood pressure management; Start 10/15/16 at 15:00; Stop 10/15/16 at 15:56 ; Status DC Sodium Chloride 240 meq/Syringe / Bag 60 ml @ 120 mls/hr ONCE ONCE IV Last administered on 10/15/16 15:33; Start 10/15/16 at 15:30; Stop 10/15/16 at 15:59; Status DC Epinephrine HCl 8 mg/Dextrose 250 ml @ 5.62 mls/hr TITRATE PRN IV Blood Pressure Management Last administered on 10/17/16 08:30; Start 10/15/16 at 15:30 ; Stop 10/17/16 at 10:08; Status DC Phenylephrine HCl 160 mg/Dextrose 500 ml @ 7.5 mls/hr TITRATE PRN IV Blood Pressure Management Last administered on 10/18/16 09:34; Start 10/15/16 at 15:45 ; Stop 10/17/16 at 10:08; Status DC Terbutaline Sulfate (Brethine Inj) 1 mg UNSCH PRN SQ FOR EXTRAVASATION PROTOCOL ; Start 10/15/16 at 15:45; Stop 11/01/16 at 07:51; Status DC Norepinephrine Bitartrate 16 mg/ Sodium Chloride 250 ml @ 1.87 mls/hr TITRATE PRN IV Blood pressure management Last administered on 10/17/16 09:11; Start 10/15 at 16:00; Stop 10/17/16 at 10:08; Status DC Calcium Gluconate 3 gm/Sodium Chloride 130 ml @ 120 mls/hr ONCE ONCE IV Last administered on 10/16/16 09:48; Start 10/16/16 at 10:00; Stop 10/16/16 at 11:04; Status DC Sodium Chloride 240 meq/Syringe / Bag 60 ml @ 120 mls/hr ONCE ONCE IV Last administered on 10/16/16 09:48; Start 10/16/16 at 10:00; Stop 10/16/16 at 10:29; Status DC Magnesium Oxide (Mag-Ox) 800 mg UNSCH PRN PO For Magnesium 1.2 - 1.6 mg/dL; Start 10/16/16 at 09:15; Stop 11/25/16 at 09:51; Status DC Magnesium Sulfate 4 gm/Sodium Chloride 100 ml @ 50 mls/hr UNSCH PRN IV For Magnesium 0.9 - 1.1 mg/dL; Start 10/16/16 at 09:15; Stop 11/25/16 at 09:51; Status DC Magnesium Sulfate 2 gm/Sodium Chloride 100 ml @ 50 mls/hr UNSCH PRN IV For Magnesium 1.2 - 1.6 mg/dL; Start 10/16/16 at 09:15; Stop 11/25/16 at 09:51; Status DC Potassium Chloride 100 ml @ 50 mls/hr Q2H PRN IV For Potassium 2.8 - 3.2 mEq/ L Last administered on 11/15/16 12:36; Start 10/16/16 at 09:15; Stop 11/25/16 at 09:51; Status DC Potassium Chloride 100 ml @ 50 mls/hr Q2H PRN IV For Potassium 3.3 - 3.5 mEq/L ; Start 10/16/16 at 09:15; Stop 11/25/16 at 09:51; Status DC Potassium Chloride 100 ml @ 50 mls/hr Q2H PRN IV For Potassium 2.8 - 3.2 mEq/ L Last administered on 10/27/16 13:26; Start 10/16/16 at 09:15; Stop 11/25/16 at 09:51; Status DC Potassium Chloride 100 ml @ 25 mls/hr UNSCH PRN IV For Potassium 3.3 - 3.5 mEq /L Last administered on 10/30/16 06:06; Start 10/16/16 at 09:15; Stop 11/25/16 at 09:51; Status DC Potassium Phosphate (K-Phos) 2,000 mg Q4H PRN PO For Phosphorus < 2.5 mg/dL; Start 10/16/16 at 09:15; Stop 11/25/16 at 09:51; Status DC Potassium Phosphate (K-Phos) 2,000 mg UNSCH PRN PO/TUBE SEE LABEL COMMENTS; Start 10/16/16 at 09:15; Stop 11/25/16 at 09:51; Status DC Potassium Phosphate 30 mmol/ Sodium Chloride 260 ml @ 42 mls/hr UNSCH PRN IV SEE LABEL COMMENTS Last administered on 10/24/16 20:39; Start 10/16/16 at 09:15 ; Stop 11/25/16 at 09:51; Status DC Sodium Phosphate 30 mmol/Sodium Chloride 250 ml @ 42 mls/hr UNSCH PRN IV For Phosphorus < 2.5 mg/dL Last administered on 10/22/16 06:46; Start 10/16/16 at 09: 15; Stop 11/25/16 at 09:51; Status DC Furosemide (Lasix Inj) 40 mg STK-MED ONCE .ROUTE Last administered on 10/16/16 13:27; Start 10/16/16 at 13:27; Stop 10/16/16 at 13:28; Status DC Vancomycin HCl 1250 mg/Sodium Chloride 262.5 ml @ 250 mls/hr Q8H IV Last administered on 10/18/16 06:10; Start 10/17/16 at 14:00; Stop 10/18/16 at 07:20; Status DC Miscellaneous Information SPECIFIC LAB TO BE ... ONCE ONCE .XX Last administered on 10/18/16 05:45; Start 10/18/16 at 05:45; Stop 10/18/16 at 05:46; Status DC Sodium Chloride 1,000 ml @ 999 mls/hr BOLUS ONCE IV Last administered on 10:45; Start 10/17/16 at 11:00; Stop 10/17/16 at 12:00; Status DC Epinephrine HCl 8 mg/Dextrose 250 ml @ 5.62 mls/hr TITRATE PRN IV Blood Pressure Management; Start 10/17/16 at 10:15; Status Cancel Norepinephrine Bitartrate 16 mg/ Sodium Chloride 250 ml @ 1.87 mls/hr TITRATE PRN IV Blood pressure management Last administered on 10/20/16 01:07; Start 10/17 at 10:15; Stop 10/31/16 at 10:47; Status DC Phenylephrine HCl 160 mg/Dextrose 500 ml @ 7.5 mls/hr TITRATE PRN IV Blood Pressure Management Last administered on 10/23/16 14:21; Start 10/17/16 at 10:15 ; Stop 10/29/16 at 11:49; Status DC Epinephrine HCl 8 mg/Dextrose 250 ml @ 5.62 mls/hr TITRATE PRN IV Blood Pressure Management Last administered on 10/20/16 15:14; Start 10/17/16 at 11:15 ; Stop 10/29/16 at 11:49; Status DC Heparin Sodium (Porcine) (*HEPARIN INJ Periprocedural ONLY) 10,000 units STK- MED ONCE .ROUTE Last administered on 10/17/16 14:54; Start 10/17/16 at 14:54; Stop 10/17/16 at 14:55; Status DC Verapamil HCl (Isoptin Inj) 20 mg STK-MED ONCE .ROUTE Last administered on 15:34; Start 10/17/16 at 15:34; Stop 10/17/16 at 15:35; Status DC Iodixanol (VISIPAQUE 320 INJ (Rad Spec)) 40 ml STK-MED ONCE I-ARTERIAL Last administered on 10/17/16 16:00; Start 10/17/16 at 16:31; Stop 10/17/16 at 16:32; Status DC Sodium Chloride 1,000 ml @ 100 mls/hr Q10H IV Last administered on 10/18/16 03 :35; Start 10/17/16 at 18:00; Stop 10/18/16 at 07:06; Status DC Potassium Chloride (KCl Powder) 60 meq ONCE ONCE NG Last administered on 08:52; Start 10/18/16 at 09:00; Stop 10/18/16 at 09:01; Status DC Calcium Gluconate 1 gm/Sodium Chloride 110 ml @ 110 mls/hr UNSCH PRN IV For Protein Corrected Calcium Last administered on 10/18/16 10:22; Start 10/18/16 at 09:45; Stop 12/27/16 at 11:31; Status DC Gentamicin Sulfate (Gentamicin Inj) 240 mg STK-MED ONCE IRRIGATION ; Start 10/07 at 12:00; Stop 10/18/16 at 12:13; Status DC Thrombin (Thrombin Top Soln) 5,000 units STK-MED ONCE TOPICAL ; Start 10/07/16 at 12:00; Stop 10/18/16 at 12:13; Status DC Gelatin (Gelfoam 100 Top) 1 foam STK-MED ONCE OTHER ; Start 10/07/16 at 12:00; Stop 10/18/16 at 12:13; Status DC Propofol (Diprivan 200 Mg/20 ml Inj) 200 mg STK-MED ONCE IV ; Start 10/07/16 at 12:00; Stop 10/18/16 at 12:16; Status DC Ephedrine Sulfate (ePHEDrine/NS 25 MG/5 ML SYR) 25 mg STK-MED ONCE IV ; Start at 12:00; Stop 10/18/16 at 12:16; Status DC Phenylephrine HCl (Neosynephrine/ NS 1000 Mcg/10ml Syr) 1,000 mcg STK-MED ONCE IV ; Start 10/07/16 at 12:00; Stop 10/18/16 at 12:16; Status DC Lactated Ringer's 1,000 ml @ As Directed STK-MED ONCE IV ; Start 10/07/16 at 12 :00; Stop 10/18/16 at 12:16; Status DC Milrinone Lactate 20 mg/Sodium Chloride 100 ml @ 12.42 mls/ hr Q8H4M IV Last administered on 10/22/16 09:23; Start 10/18/16 at 16:21; Stop 10/22/16 at 19:37; Status DC Lansoprazole (Prevacid Odt) 30 mg DAILY NG Last administered on 12/16/16 08:54 ; Start 10/20/16 at 09:00; Stop 12/16/16 at 15:01; Status DC Lansoprazole (Prevacid Odt) 30 mg ONCE ONCE NG Last administered on 10/19/16 12:11; Start 10/19/16 at 12:00; Stop 10/19/16 at 12:02; Status DC Sodium Chloride (NS Flush) 2 ml UNSCH PRN IV FLUSH FLUSH AFTER USING IV ACCESS ; Start 10/19/16 at 09:45; Stop 12/27/16 at 11:24; Status DC Sodium Chloride (NS Flush) 2 ml BID IV FLUSH Last administered on 12/26/16 22 :03; Start 10/19/16 at 21:00; Stop 12/27/16 at 11:24; Status DC Artificial Tears (Tears Naturale Opth Soln) 1 drop TID EACH EYE Last administered on 01/16/17 09:03; Start 10/19/16 at 13:00 Ondansetron HCl (Zofran Inj) 4 mg Q6H PRN IV NAUSEA OR VOMITING; Start 10/19/16 at 09:45; Status UNV Albuterol/ Ipratropium (Duoneb Neb) 1 ampule Q6HR NEB INH Last administered on 10/23/16 08:36; Start 10/19/16 at 12:00; Stop 10/23/16 at 11:59; Status DC Albuterol Sulfate (Albuterol Neb) 2.5 mg Q2HR NEB PRN INH SOB/WHEEZING Last administered on 11/22/16 22:09; Start 10/19/16 at 09:45 Miscellaneous Information 1 [id number] ; Start 10/19/16 at 09:45; Stop 01/13/17 at 12:47; Status DC Chlorhexidine Gluconate (Chlorhexidine 2% Cloth) Taper DAILY@04 TOP Last administered on 12/24/16 04:00; Start 10/20/16 at 04:00; Stop 01/13/17 at 12:47 ; Status DC Chlorhexidine Gluconate (Chlorhexidine 2% Cloth) 3 pack UNSCH PRN TOP HYGIENIC CARE; Start 10/19/16 at 09:45; Stop 01/13/17 at 12:47; Status DC Docusate Sodium (Colace Liq) 100 mg Q12HR PO Last administered on 10/30/16 07: 55; Start 10/19/16 at 21:00; Stop 10/31/16 at 10:47; Status DC Sennosides (Senna Liq) 8.8 mg BID PO Last administered on 10/29/16 20:15; Start 10/19/16 at 21:00; Stop 10/31/16 at 10:47; Status DC Polyethylene Glycol (Miralax) 17 gm BID OG-TUBE Last administered on 10/29/16 20:15; Start 10/19/16 at 21:00; Stop 10/31/16 at 10:47; Status DC Pharmacy Profile Note 0 ml @ 0 mls/hr UNSCH OTHER ; Start 10/19/16 at 10:15; Stop 10/24/16 at 11:41; Status DC Piperacillin Sod/ Tazobactam Sod 100 ml @ 200 mls/hr Q6H IV Last administered on 10/23/16 05:39; Start 10/19/16 at 12:00; Stop 10/23/16 at 09:43; Status DC Vancomycin HCl 1500 mg/Sodium Chloride 515 ml @ 257.5 mls/ hr Q8H IV Last administered on 10/22/16 04:38; Start 10/19/16 at 13:00; Stop 10/22/16 at 13:55; Status DC Miscellaneous Information SPECIFIC LAB TO BE DRAWN:VANCOMYCIN TROUGH DATE TO... ONCE ONCE .XX Last administered on 10/20/16 12:45; Start 10/20/16 at 12:45; Stop 10/20/16 at 12:46; Status DC Verapamil HCl (Isoptin Inj) 5 mg STK-MED ONCE .ROUTE ; Start 10/19/16 at 12:44; Stop 10/19/16 at 12:45; Status DC Verapamil HCl (Isoptin Inj) 15 mg STK-MED ONCE .ROUTE ; Start 10/19/16 at 12:44; Stop 10/19/16 at 12:45; Status DC Iodixanol (VISIPAQUE 320 INJ (Rad Spec)) 30 ml STK-MED ONCE I-ARTERIAL Last administered on 10/19/16 13:50; Start 10/19/16 at 14:05; Stop 10/19/16 at 14:06; Status DC Lactulose (Lactulose Liq) 30 ml BID OG-TUBE Last administered on 10/31/16 20: 30; Start 10/20/16 at 21:00; Stop 11/01/16 at 07:51; Status DC Mineral Oil (Kondremul Liq) 30 ml ONCE ONCE PO ; Start 10/20/16 at 09:15; Stop 10/20/16 at 09:16; Status Cancel Methylnaltrexone Deep Run (Relistor Inj) 12 mg ONCE ONCE SQ Last administered on 10/20/16 14:17; Start 10/20/16 at 09:15; Stop 10/20/16 at 09:39; Status DC Insulin Aspart (NovoLOG SUPPLEMENTAL SCALE) 1 Q4HR SQ Last administered on 10/27 11:57; Start 10/20/16 at 12:00; Stop 11/03/16 at 12:42; Status DC Multivitamins 10 ml/Folic Acid 1 mg/Amino Acids/ Electrolytes/ Dextrose 2,010.2 ml @ 30 mls/hr Q24H IV-CENTRAL Last administered on 10/28/16 20:01; Start 10/20/16 at 20:00; Stop 10/31/16 at 10:47; Status DC Fat Emulsion Intravenous 250 ml @ 10 mls/hr Q24H IV-CENTRAL Last administered on 10/29/16 19:58; Start 10/20/16 at 20:00; Stop 10/31/16 at 10:47; Status DC Mineral Oil (Mineral Oil Liq) 30 ml ONCE ONCE PO ; Start 10/20/16 at 14:00; Stop 10/20/16 at 14:01; Status Cancel Mineral Oil (Mineral Oil Liq) 30 ml ONCE ONCE PO Last administered on 15:32; Start 10/20/16 at 14:00; Stop 10/20/16 at 14:01; Status DC Potassium Phosphate 30 mmol/ Sodium Chloride 260 ml @ 43.333 mls/ hr ONCE ONCE IV ; Start 10/20/16 at 18:00; Stop 10/20/16 at 23:59; Status DC Potassium Chloride 100 ml @ 25 mls/hr BOLUS ONCE IV Last administered on 17:17; Start 10/20/16 at 17:00; Stop 10/20/16 at 20:59; Status DC Miscellaneous Information SPECIFIC LAB TO BE LI... ONCE ONCE .XX Last administered on 10/22/16 12:45; Start 10/22/16 at 12:45; Stop 10/22/16 at 12:46; Status DC Diltiazem HCl 125 mg/Sodium Chloride 125 ml @ 5 mls/hr TITRATE PRN IV Tachycardia Last administered on 10/27/16 08:13; Start 10/22/16 at 10:30; Stop 10/28/16 at 18:49; Status DC Hydrocortisone Sodium Succinate (SoluCORTEF INJ) 75 mg Q8H IV PUSH Last administered on 10/24/16 04:05; Start 10/22/16 at 12:00; Stop 10/24/16 at 09:40 ; Status DC Milrinone Lactate 20 mg/Sodium Chloride 100 ml @ 9.79 mls/hr [id number] IV Last administered on 10/30/16 03:35; Start 10/22/16 at 10:23; Stop 11/01/16 at 07:51 ; Status DC Furosemide (Lasix Inj) 40 mg NOW ONCE IV PUSH Last administered on 10/22/16 14 :46; Start 10/22/16 at 14:30; Stop 10/22/16 at 14:31; Status DC Furosemide 100 mg/ Sodium Chloride 100 ml @ 10 mls/hr CONTINUOUS IV Last administered on 10/24/16 01:16; Start 10/22/16 at 15:00; Stop 10/24/16 at 11:17 ; Status DC Vancomycin HCl 1500 mg/Sodium Chloride 515 ml @ 257.5 mls/ hr Q12H IV Last administered on 10/23/16 08:32; Start 10/23/16 at 09:00; Stop 10/23/16 at 09:43 ; Status DC Potassium Chloride 100 ml @ 25 mls/hr Q4H IV Last administered on 10/22/16 18: 05; Start 10/22/16 at 15:00; Stop 10/22/16 at 22:59; Status DC Miscellaneous Information SPECIFIC LAB TO BE ... ONCE ONCE .XX ; Start 10/25 at 08:45; Stop 10/25/16 at 08:45; Status DC Potassium Chloride 100 ml @ 25 mls/hr Q4H IV Last administered on 10/23/16 19 :46; Start 10/23/16 at 18:30; Stop 10/24/16 at 02:29; Status DC Hydrocortisone Sodium Succinate (SoluCORTEF INJ) 50 mg Q12H IV PUSH Last administered on 10/25/16 04:42; Start 10/24/16 at 16:00; Stop 10/25/16 at 08:37 ; Status DC Insulin Detemir (Levemir Inj) 12 units Q12HR SQ Last administered on 10/28/16 09:23; Start 10/24/16 at 09:45; Stop 10/28/16 at 18:30; Status DC Furosemide 100 mg/ Sodium Chloride 100 ml @ 5 mls/hr CONTINUOUS IV Last administered on 10/27/16 08:12; Start 10/24/16 at 12:00; Stop 10/27/16 at 08:59 ; Status DC Hydrocortisone Sodium Succinate (SoluCORTEF INJ) 25 mg Q12H IV PUSH Last administered on 10/27/16 04:14; Start 10/25/16 at 16:00; Stop 10/27/16 at 08:59 ; Status DC Acetazolamide Sodium (Diamox Inj) 500 mg DAILY IV PUSH Last administered on 08:15; Start 10/25/16 at 09:00; Stop 10/28/16 at 03:25; Status DC Phenytoin Sodium (Dilantin Inj) 100 mg Q8HR IV Last administered on 11/01/16 05:30; Start 10/25/16 at 22:00; Stop 11/01/16 at 07:52; Status DC Furosemide (Lasix Inj) 40 mg DAILY IV PUSH Last administered on 11/09/16 09:11 ; Start 10/28/16 at 09:00; Stop 11/09/16 at 10:18; Status DC Sodium Chloride 1,000 ml @ 30 mls/hr Q24H IV Last administered on 10/28/16 19 :30; Start 10/28/16 at 05:45; Stop 10/29/16 at 11:49; Status DC Dextrose (D50w (Syr) Inj) 50 ml STK-MED ONCE .ROUTE ; Start 10/28/16 at 17:41; Stop 10/28/16 at 17:42; Status DC Insulin Detemir (Levemir Inj) 8 units Q12HR SQ Last administered on 10/29/16 08:28; Start 10/28/16 at 21:00; Stop 11/01/16 at 14:52; Status DC Protein (Beneprotein Powder) 1 pack TID G-TUBE Last administered on 12/14/16 12:08; Start 10/29/16 at 13:00; Stop 12/14/16 at 13:57; Status DC Diltiazem HCl (Cardizem) 60 mg Q6HR PO Last administered on 11/02/16 04:46; Start 10/29/16 at 13:00; Stop 11/02/16 at 07:19; Status DC Levetriacetam (Keppra Liq) 500 mg Q12HR NG Last administered on 12/26/16 22: 02; Start 10/31/16 at 21:00; Stop 12/27/16 at 15:58; Status DC Cisatracurium Besylate (Nimbex Inj) 20 mg ONCE ONCE IV ; Start 11/01/16 at 07: 45; Stop 11/01/16 at 07:55; Status DC Midazolam HCl (Versed Inj) 10 mg ONCE ONCE IV PUSH Last administered on 11:36; Start 11/01/16 at 07:45; Stop 11/01/16 at 07:53; Status DC Fentanyl Citrate (fentaNYL INJ) 250 mcg ONCE ONCE IV PUSH Last administered on 11/01/16 11:37; Start 11/01/16 at 07:45; Stop 11/01/16 at 07:53; Status DC Lactulose (Lactulose Liq) 30 ml QID OG-TUBE Last administered on 11/11/16 12: 28; Start 11/01/16 at 09:00; Stop 11/12/16 at 08:36; Status DC Phenytoin (Dilantin Liq) 100 mg Q8HR PO Last administered on 11/06/16 06:34; Start 11/01/16 at 14:00; Stop 11/06/16 at 12:28; Status DC Cisatracurium Besylate (Nimbex Inj) 20 mg ONCE ONCE IV Last administered on 11:36; Start 11/01/16 at 09:15; Stop 11/01/16 at 09:16; Status DC Oxycodone HCl (Roxicodone Intensol Liq) 10 mg Q4H PRN PO pain 1-6 Last administered on 11/11/16 02:28; Start 11/01/16 at 15:00; Stop 11/24/16 at 11: 19; Status DC Hydromorphone HCl (Dilaudid Pf Inj) 0.5 mg Q4H PRN IV PUSH pain 7-10 or not taking po Last administered on 11/19/16 01:42; Start 11/01/16 at 15:00; Stop 11/29/16 at 12:24; Status DC Haloperidol Lactate (Haldol Inj) 5 mg Q4H PRN IV PUSH agitation; Start at 15:00; Stop 11/29/16 at 14:45; Status DC Melatonin (Melatonin) 5 mg HS PO Last administered on 01/16/17 21:29; Start at 21:00 Diltiazem HCl (Cardizem) 90 mg Q6HR PO Last administered on 01/17/17 06:01; Start 11/02/16 at 12:00 Pharmacy Profile Note 0 ml @ 0 mls/hr UNSCH OTHER ; Start 11/02/16 at 15:30; Stop 11/06/16 at 15:48; Status DC Vancomycin HCl 1250 mg/Sodium Chloride 262.5 ml @ 250 mls/hr Q8H IV Last administered on 11/04/16 02:20; Start 11/02/16 at 18:00; Stop 11/05/16 at 16:14 ; Status DC Cefepime HCl 2000 mg/Sodium Chloride 100 ml @ 200 mls/hr Q8H IV Last administered on 11/06/16 08:42; Start 11/02/16 at 17:00; Stop 11/06/16 at 15:48 ; Status DC Metronidazole 100 ml @ 100 mls/hr Q6H IV Last administered on 11/04/16 09:26 ; Start 11/02/16 at 16:00; Stop 11/04/16 at 11:21; Status DC Miscellaneous Information SPECIFIC LAB TO BE DRAWN:VANCOMYCIN TROUGH DATE TO... ONCE ONCE .XX ; Start 11/03/16 at 17:45; Stop 11/03/16 at 17:46; Status DC Insulin Aspart (NovoLOG SUPPLEMENTAL SCALE) 1 Q12H SQ Last administered on 11/04 00:42; Start 11/03/16 at 12:00; Stop 11/12/16 at 08:40; Status DC Potassium Chloride 100 ml @ 50 mls/hr Q2H IV ; Start 11/03/16 at 15:00; Stop at 16:58; Status DC Miscellaneous Information SPECIFIC LAB TO BE DRAWN:VANCOMYCIN TROUGH DATE TO... ONCE ONCE .XX Last administered on 11/04/16 01:45; Start 11/04/16 at 01:45; Stop 11/04/16 at 01:46; Status DC Sodium Chloride 1,000 ml @ 84 mls/hr [id number] IV Last administered on 13:02; Start 11/04/16 at 11:15; Stop 11/05/16 at 11:14; Status DC Vancomycin HCl 1250 mg/Sodium Chloride 262.5 ml @ 250 mls/hr Q12H IV Last administered on 11/06/16 06:34; Start 11/05/16 at 18:00; Stop 11/06/16 at 15:48 ; Status DC Miscellaneous Information SPECIFIC LAB TO BE LI... ONCE ONCE .XX ; Start 11/07 at 05:45; Stop 11/07/16 at 05:45; Status DC Aztreonam 1000 mg/ Sodium Chloride 100 ml @ 200 mls/hr Q8H IV Last administered on 11/08/16 08:00; Start 11/06/16 at 16:00; Stop 11/08/16 at 12:55 ; Status DC Lactobacillus Acidophilus (Lactinex) 1 tab TID PO Last administered on 12:16; Start 11/06/16 at 18:00; Stop 12/14/16 at 13:57; Status DC Fluconazole (Diflucan) 100 mg DAILY PO Last administered on 11/16/16 09:23; Start 11/06/16 at 16:00; Stop 11/16/16 at 13:20; Status DC Norepinephrine Bitartrate (Levophed Inj) 4 mg STK-MED ONCE .ROUTE ; Start at 02:02; Stop 11/07/16 at 02:03; Status DC Chlorhexidine Gluconate (Hibiclens 4% Top Soln) 1 applic HS TOP Last administered on 11/07/16 23:28; Start 11/07/16 at 21:00; Stop 11/08/16 at 09:58 ; Status DC Prednisone (Deltasone) 20 mg BID PO Last administered on 11/09/16 21:08; Start 11/08/16 at 13:00; Stop 11/09/16 at 21:01; Status DC Levofloxacin (Levaquin) 750 mg DAILY PO Last administered on 11/15/16 08:23; Start 11/08/16 at 13:00; Stop 11/15/16 at 12:59; Status DC Furosemide (Lasix Liq) 20 mg DAILY NG Last administered on 12/01/16 08:38; Start 11/09/16 at 10:30; Stop 12/02/16 at 09:49; Status DC Cefazolin Sodium 1000 mg/Sodium Chloride 100 ml @ 200 mls/hr NOW ONCE IV ; Start 11/12/16 at 15:30; Stop 11/12/16 at 15:59; Status DC Water (Free Water) 200 ml Q6HR G-TUBE Last administered on 11/15/16 18:00; Start 11/14/16 at 18:45; Stop 11/15/16 at 18:50; Status DC Potassium Bicarb/ Potassium Chloride (K-Lyte Cl Eff) 50 meq NOW ONCE PO Last administered on 11/15/16 10:44; Start 11/15/16 at 08:30; Stop 11/15/16 at 08:31 ; Status DC Water (Free Water) 300 ml Q4HR G-TUBE Last administered on 11/20/16 16:00; Start 11/15/16 at 20:00; Stop 11/21/16 at 20:04; Status DC Acetylcysteine (Mucomyst 20% Neb) 2 ml Q6HR NEB NEB Last administered on 04:24; Start 11/16/16 at 10:00; Stop 11/20/16 at 09:59; Status DC Albuterol/ Ipratropium (Duoneb Neb) 1 ampule Q6HR NEB NEB Last administered on 11/20/16 08:04; Start 11/16/16 at 10:00; Stop 11/20/16 at 09:59; Status DC Metoclopramide HCl (Reglan Inj) 10 mg Q8H IV PUSH Last administered on 09:40; Start 11/18/16 at 02:00; Stop 12/02/16 at 09:51; Status DC Ondansetron HCl (Zofran Inj) 4 mg Q6H PRN IV PUSH nausea; Start 11/18/16 at 01: 45; Stop 12/27/16 at 11:33; Status DC Sodium Chloride 1,000 ml @ 999 mls/hr BOLUS ONCE IV Last administered on 11/18 01:58; Start 11/18/16 at 02:00; Stop 11/18/16 at 03:00; Status DC Bacitracin (Baciguent Oint) 1 applic Q12HR TOPICAL Last administered on 20:45; Start 11/18/16 at 11:00 Levofloxacin (Levaquin) 750 mg DAILY PO Last administered on 11/25/16 09:19; Start 11/18/16 at 12:00; Stop 11/25/16 at 11:59; Status DC Sodium Chloride 1,000 ml @ 75 mls/hr [id number] IV Last administered on 01:08; Start 11/18/16 at 13:00; Stop 11/19/16 at 12:59; Status DC Protein (Beneprotein Powder) 1 pack TID G-TUBE Last administered on 01/10/17 18:00; Start 11/19/16 at 09:00; Stop 01/13/17 at 12:47; Status DC Water (Free Water) VOLUME OF WATER: 200 ML Q6HR G-TUBE Last administered on 18:00; Start 11/22/16 at 00:00; Stop 11/26/16 at 18:43; Status DC Albuterol/ Ipratropium (Duoneb Neb) 1 ampule QID NEB NEB Last administered on 11/27/16 11:55; Start 11/23/16 at 16:00; Stop 11/27/16 at 15:59; Status DC Povidone Iodine (Betadine 10% Oint) 1 applic DAILY TOPICAL Last administered on 12/23/16 09:00; Start 11/24/16 at 09:00; Stop 12/24/16 at 12:51; Status DC Oxycodone HCl (Roxicodone Intensol Liq) 10 mg Q4H PRN PO PAIN SCALE 1 TO 6; Start 11/24/16 at 11:30; Stop 11/29/16 at 14:38; Status DC Midazolam HCl (Versed Inj) 5 mg STK-MED ONCE .ROUTE Last administered on 16:24; Start 11/26/16 at 16:24; Stop 11/26/16 at 16:25; Status DC Rocuronium [place] (Zemuron Inj) 100 mg STK-MED ONCE .ROUTE Last administered on 11/26/16 18:19; Start 11/26/16 at 16:24; Stop 11/26/16 at 16:25; Status DC Propofol 50 ml @ As Directed STK-MED ONCE .ROUTE Last administered on 18:29; Start 11/26/16 at 16:53; Stop 11/26/16 at 16:54; Status DC Chlorhexidine Gluconate (Peridex 0.12% Liq) 15 ml BID@08,20 MT Last administered on 01/16/17 08:00; Start 11/26/16 at 20:00 Propofol 100 ml @ 1.668 mls/ hr TITRATE PRN IV SEDATION Last administered on 11/26/16 21:29; Start 11/26/16 at 18:45; Stop 12/12/16 at 16:47; Status DC Fentanyl Citrate (fentaNYL INJ) 100 mcg Q1H PRN IV PUSH any pain; Start at 18:45; Stop 11/29/16 at 14:38; Status DC Fentanyl Citrate 250 ml @ 5 mls/hr TITRATE PRN IV SEDATION Last administered on 11/29/16 06:30; Start 11/26/16 at 18:45; Stop 12/12/16 at 16:47; Status DC Propofol 50 ml @ As Directed STK-MED ONCE .ROUTE Last administered on 18:47; Start 11/26/16 at 18:43; Stop 11/26/16 at 18:44; Status DC Cisatracurium Besylate (Nimbex Inj) 11 mg ONCE ONCE IV PUSH Last administered on 11/26/16 19:30; Start 11/26/16 at 18:45; Stop 11/26/16 at 18:50; Status DC Cisatracurium Besylate 100 mg/ Sodium Chloride 260 ml @ 8.67 mls/hr TITRATE PRN IV TOF 1/4 Last administered on 11/28/16 06:25; Start 11/26/16 at 18:45; Stop 11/28/16 at 10:46; Status DC Epinephrine HCl (EPINEPHrine (1:10,000) INJ) 1 mg STK-MED ONCE .ROUTE ; Start 11/26/16 at 20:06; Stop 11/26/16 at 20:07; Status DC Atropine Sulfate (Atropine Inj) 1 mg STK-MED ONCE .ROUTE ; Start 11/26/16 at 20 :06; Stop 11/26/16 at 20:07; Status DC Lidocaine HCl (Xylocaine 2% Inj) 100 mg STK-MED ONCE .ROUTE ; Start 11/26/16 at 20:07; Stop 11/26/16 at 20:08; Status DC Iohexol (Omnipaque 350 Inj) 95 ml STK-MED ONCE IVCONTRAST Last administered on 11/26/16 20:20; Start 11/26/16 at 20:20; Stop 11/26/16 at 20:21; Status DC Lactated Ringer's 1,000 ml @ 84 mls/hr [id number] IV ; Start 11/26/16 at 23:00; Stop 11/27/16 at 01:37; Status DC Sodium Chloride 500 ml @ 50 mls/hr Q10H IV Last administered on 11/27/16 01: 50; Start 11/27/16 at 01:45; Stop 11/27/16 at 11:44; Status DC Midazolam HCl 100 ml @ 2 mls/hr TITRATE PRN IV SEDATION Last administered on 22:12; Start 11/27/16 at 01:45; Stop 11/29/16 at 14:45; Status DC Midazolam HCl (Versed Inj) 2 mg Q15M PRN IV PUSH SEDATION; Start 11/27/16 at 01:45; Stop 11/29/16 at 14:45; Status DC Lactated Ringer's 1,000 ml @ 84 mls/hr [id number] IV Last administered on 01:17; Start 11/27/16 at 03:15; Stop 12/02/16 at 07:00; Status DC Cisatracurium Besylate 100 mg/ Sodium Chloride 250 ml @ 8.34 mls/hr TITRATE PRN IV TOF 1/4 Last administered on 11/28/16 11:11; Start 11/28/16 at 11:00; Stop 11/28/16 at 14:11; Status DC Sodium Chloride 250 ml @ 15 mls/hr ONCE ONCE IV Last administered on 11:15; Start 11/28/16 at 11:15; Stop 11/29/16 at 03:54; Status DC Epinephrine HCl (EPINEPHrine (1:10,000) INJ) 1 mg STK-MED ONCE .ROUTE ; Start 11/29/16 at 04:20; Stop 11/29/16 at 04:21; Status DC Atropine Sulfate (Atropine Inj) 1 mg STK-MED ONCE .ROUTE ; Start 11/29/16 at 04 :20; Stop 11/29/16 at 04:21; Status DC Lidocaine HCl (Xylocaine 2% Inj) 100 mg STK-MED ONCE .ROUTE ; Start 11/29/16 at 04:20; Stop 11/29/16 at 04:21; Status DC Iohexol (Omnipaque 350 Inj) 70 ml STK-MED ONCE IVCONTRAST Last administered on 11/29/16t 05:14; Start 11/29/16 at 05:14; Stop 11/29/16 at 05:15; Status DC Epinephrine HCl (EPINEPHrine (1:10,000) INJ) 1 mg STK-MED ONCE .ROUTE ; Start 11/29/16 at 06:45; Stop 11/29/16 at 06:46; Status DC Epinephrine HCl (EPINEPHrine (1:10,000) INJ) 4 mg STK-MED ONCE .ROUTE ; Start 11/29/16 at 06:48; Stop 11/29/16 at 06:49; Status DC Hydromorphone HCl (Dilaudid Pf Inj) 0.5 mg Q4H PRN IV PUSH pain 7-10 or not taking po; Start 11/29/16 at 12:30; Stop 11/29/16 at 14:38; Status DC Rocuronium [place] (Zemuron Inj) 50 mg STK-MED ONCE .ROUTE Last administered on 11/29/16 12:51; Start 11/29/16 at 12:51; Stop 11/29/16 at 12:52; Status DC Rocuronium [place] (Zemuron Inj) 50 mg STK-MED ONCE .ROUTE Last administered on 11/29/16 13:30; Start 11/29/16 at 13:30; Stop 11/29/16 at 13:31; Status DC Collagenase (Santyl Oint) 1 applic DAILY TOPICAL Last administered on 09:03; Start 11/30/16 at 12:00 Albuterol/ Ipratropium (Duoneb Neb) 1 ampule Q6HR NEB NEB Last administered on 12/04/16 09:06; Start 11/30/16 at 16:00; Stop 12/04/16 at 09:12; Status DC Dextrose (D50w (Vial) Inj) 50 ml UNSCH PRN IV PUSH HYPOGLYCEMIA-SEE COMMENTS; Start 11/30/16 at 12:15; Stop 12/02/16 at 19:38; Status DC Glucagon (Glucagon Inj) 1 mg UNSCH PRN OTHER HYPOGLYCEMIA-SEE COMMENTS; Start 11/30/16 at 12:15; Stop 12/02/16 at 19:38; Status DC Insulin Human Regular (NovoLIN R SUPPLEMENTAL SCALE) 1 ACHS SLIDING SCALE SQ ; Start 11/30/16 at 17:00; Stop 12/02/16 at 09:49; Status DC Acetaminophen (Tylenol) 650 mg Q4H PRN PO PAIN OR TEMP >100.4 Last administered on 12/20/16 14:32; Start 11/30/16 at 13:15; Stop 12/27/16 at 11: 35; Status DC Magnesium Sulfate/ Dextrose 100 ml @ 100 mls/hr Q1H IV Last administered on 16:52; Start 12/01/16 at 14:00; Stop 12/01/16 at 15:59; Status DC Potassium Chloride (KCl Powder) 20 meq ONCE ONCE PO ; Start 12/01/16 at 14:00 ; Stop 12/01/16 at 14:01; Status DC Fentanyl Citrate (fentaNYL INJ) 200 mcg STK-MED ONCE .ROUTE Last administered on 12/01/16 15:00; Start 12/01/16 at 14:45; Stop 12/01/16 at 14:46; Status DC Midazolam HCl (Versed Inj) 4 mg STK-MED ONCE .ROUTE Last administered on 15:00; Start 12/01/16 at 14:45; Stop 12/01/16 at 14:46; Status DC Fentanyl Citrate (fentaNYL INJ) 100 mcg STK-MED ONCE .ROUTE Last administered on 12/01/16 15:55; Start 12/01/16 at 15:53; Stop 12/01/16 at 15:54; Status DC Midazolam HCl (Versed Inj) 2 mg STK-MED ONCE .ROUTE Last administered on 16:00; Start 12/01/16 at 15:53; Stop 12/01/16 at 15:54; Status DC Cefazolin Sodium/ Dextrose 50 ml @ As Directed STK-MED ONCE .ROUTE Last administered on 12/01/16 16:00; Start 12/01/16 at 16:03; Stop 12/01/16 at 16 :04; Status DC Iodixanol (VISIPAQUE 320 INJ (Rad Spec)) 65 ml STK-MED ONCE I-ARTERIAL Last administered on 12/01/16 16:15; Start 12/02/16 at 08:47; Stop 12/02/16 at 08 :51; Status DC Potassium Chloride (KCl Powder) 20 meq ONCE ONCE PO ; Start 12/02/16 at 10:00 ; Stop 12/02/16 at 10:02; Status DC Insulin Human Regular (NovoLIN R SUPPLEMENTAL SCALE) 1 Q6HR SQ ; Start at 12:00; Stop 12/02/16 at 19:38; Status DC Magnesium Sulfate/ Dextrose 100 ml @ 100 mls/hr ONCE ONCE IV Last administered on 12/02/16 11:11; Start 12/02/16 at 10:00; Stop 12/02/16 at 10 :59; Status DC Metoclopramide HCl (Reglan Inj) 5 mg Q8H IV PUSH Last administered on 02:28; Start 12/02/16 at 18:00; Stop 12/12/16 at 16:47; Status DC Racepinephrine (Racepinephrine 2.25% Neb) 0.5 ml Q4HR NEB PRN NEB hemoptysis/ stridor; Start 12/03/16 at 15:00; Stop 01/13/17 at 12:47; Status DC Albuterol/ Ipratropium (Duoneb Neb) 1 ampule Q6HR NEB NEB Last administered on 12/08/16 01:13; Start 12/04/16 at 10:00; Stop 12/08/16 at 09:59; Status DC Nitroglycerin (Nitroglycerin 2% Oint) 2 inch Q6H PRN TOPICAL SBP>160, DBP>90; Start 12/04/16 at 09:15 Clonidine (Catapres) 0.1 mg Q8H PO Last administered on 01/10/17 01:22; Start 12/04/16 at 10:00; Stop 01/10/17 at 16:51; Status DC Hydralazine HCl (Apresoline Inj) 10 mg Q1H PRN IV PUSH SBP>160, DBP>90 Last administered on 12/04/16 12:39; Start 12/04/16 at 09:15; Stop 12/16/16 at 15: 01; Status DC Labetalol HCl (Trandate Inj) 10 mg Q1H PRN IV PUSH SBP>160, DBP>90, HR>65; Start 12/04/16 at 09:15; Stop 12/16/16 at 15:01; Status DC Enalaprilat (Vasotec Inj) 1.25 mg Q6H PRN IV PUSH SBP>160, DBP>90; Start 12/04 at 09:15 Sodium Chloride (NS Flush) DAILY IV FLUSH Last administered on 01/09/17 09: 19; Start 12/04/16 at 18:00; Stop 01/13/17 at 12:47; Status DC Sodium Chloride (NS Flush) UNSCH PRN IV FLUSH SEE PROTOCOL; Start 12/04/16 at 18:00; Stop 01/13/17 at 12:47; Status DC Loperamide HCl (Imodium Liq) 2 mg UNSCH PRN PO DIARRHEA; Start 12/14/16 at 10: 45 Lactobacillus Acidophilus (Lactinex) 1 tab TID PO Last administered on 17:03; Start 12/14/16 at 18:00 Famotidine (Pepcid) 20 mg BID PO Last administered on 01/16/17 21:28; Start 12/16/16 at 21:00 Ferrous Sulfate (Ferrous Sulfate) 325 mg BID@12,17 PO Last administered on 01/16 17:03; Start 12/22/16 at 12:00 Ascorbic Acid (Vitamin C) 500 mg BID PO Last administered on 01/16/17 21:30; Start 12/22/16 at 09:00 Chlorhexidine Gluconate (Hibiclens 4% Top Soln) 1 applic HS TOP Last administered on 12/26/16 21:00; Start 12/22/16 at 21:00; Stop 12/26/16 at 21: 01; Status DC Cefazolin Sodium/ Dextrose 50 ml @ 150 mls/hr ONCE ONCE IV Last administered on 12/27/16 08:15; Start 12/27/16 at 06:00; Stop 12/27/16 at 06:19; Status DC Lactated Ringer's 1,000 ml @ 30 mls/hr Q24H PRN IV SEE LABEL COMMENTS; Start 12/26/16 at 15:00; Stop 12/27/16 at 11:25; Status DC Sodium Chloride 500 ml @ 30 mls/hr [id number] PRN IV SEE LABEL COMMENTS; Start at 15:00; Stop 12/27/16 at 11:25; Status DC Metoprolol Tartrate (Lopressor) 25 mg DIAGNOSTICS TECH PRN PO SEE LABEL COMMENTS; Start 12/26/16 at 15:00; Stop 12/29/16 at 14:59; Status DC Povidone Iodine (Betadine 5% Antisepsis Kit) 1 applic DIAGNOSTICS TECH PRN EACH NARE SEE LABEL COMMENTS; Start 12/26/16 at 15:00; Stop 12/29/16 at 14:59; Status DC Chlorhexidine Gluconate (Chlorhexidine 2% Cloth) 3 pack DIAGNOSTICS TECH PRN TOPICAL SEE LABEL COMMENTS; Start 12/26/16 at 15:00; Stop 12/29/16 at 14:59; Status DC Insulin Human Regular (NovoLIN R INJ) See Protocol Table ... DIAGNOSTICS TECH PRN SQ SEE PROTOCOL TABLE; Start 12/26/16 at 15:00; Stop 12/29/16 at 14:59; Status DC Thrombin (Thrombin Top Soln) 10,000 units STK-MED ONCE .ROUTE Last administered on 12/27/16 10:00; Start 12/27/16 at 07:52; Stop 12/27/16 at 07 :53; Status DC Gelatin (Gelfoam 100 Top) 1 foam STK-MED ONCE .ROUTE Last administered on 12/27 10:00; Start 12/27/16 at 07:53; Stop 12/27/16 at 07:54; Status DC Gentamicin Sulfate (Gentamicin Inj) 240 mg STK-MED ONCE .ROUTE Last administered on 12/27/16 10:00; Start 12/27/16 at 07:53; Stop 12/27/16 at 07 :54; Status DC Lidocaine/ Epinephrine (Xylocaine-Epi 1%-1:100,000 Inj) 20 ml STK-MED ONCE .ROUTE Last administered on 12/27/16 10:00; Start 12/27/16 at 07:54; Stop 12/27/16 at 07:55; Status DC Acetaminophen 100 ml @ As Directed STK-MED ONCE IV ; Start 12/27/16 at 07:57; Stop 12/27/16 at 07:58; Status DC Artificial Tears (Lacrilube Opht Oint) 3.5 applic STK-MED ONCE .ROUTE ; Start 12/27/16 at 07:58; Stop 12/27/16 at 07:59; Status DC Levetriacetam (Keppra Inj) 500 mg STK-MED ONCE IV Last administered on 10:10; Start 12/27/16 at 10:06; Stop 12/27/16 at 10:07; Status DC Potassium Chloride/Sodium Chloride 1,000 ml @ 100 mls/hr Q10H IV Last administered on 01/12/17 10:00; Start 12/27/16 at 11:17; Stop 01/12/17 at 11 :04; Status DC IV Flush (NS Flush) 2 ml UNSCH PRN IVF FLUSH AFTER USING IV ACCESS; Start at 11:30 IV Flush (NS Flush) 2 ml BID IVF Last administered on 01/13/17 08:44; Start 12/27/16 at 21:00; Stop 01/13/17 at 12:47; Status DC Cefazolin Sodium/ Dextrose 50 ml @ 100 mls/hr Q8H IV Last administered on 08:00; Start 12/27/16 at 16:00; Stop 12/28/16 at 08:29; Status DC Levetriacetam 500 mg/Sodium Chloride 105 ml @ 400 mls/hr Q12H IV ; Start 12/27 at 12:00; Status Cancel Bisacodyl (Dulcolax Supp) 10 mg DAILY PRN RECTAL CONSTIPATION; Start 12/27/16 at 11:30 Docusate Sodium (Colace) 100 mg BID PO Last administered on 01/16/17 21:28; Start 12/27/16 at 21:00 Pantoprazole Sodium (Protonix) 40 mg DAILY PO Last administered on 01/13/17 08 :44; Start 12/28/16 at 09:00; Stop 01/13/17 at 12:47; Status DC Pantoprazole Sodium (Protonix Inj) 40 mg DAILY IVP Last administered on 08:44; Start 12/28/16 at 09:00; Stop 01/13/17 at 12:43; Status DC Ondansetron HCl (Zofran Inj) 4 mg Q6H PRN IV PUSH NAUSEA OR VOMITING; Start at 11:30 Calcium Gluconate (Calcium Gluconate Inj) 1 gm UNSCH PRN IV SEE LABEL COMMENTS ; Start 12/27/16 at 11:30; Stop 12/27/16 at 11:31; Status DC Potassium Chloride 100 ml @ 50 mls/hr UNSCH PRN IV POTASSIUM LESS THAN 4; Start 12/27/16 at 11:30; Stop 01/10/17 at 16:51; Status DC Magnesium Sulfate 4 gm/Sodium Chloride 108 ml @ 108 mls/hr UNSCH PRN IV MAGNESIUM LESS THAN 2; Start 12/27/16 at 11:30; Stop 01/10/17 at 16:51; Status DC Acetaminophen/ Hydrocodone Bitart ([place] 10-325 Mg) 1 tab Q4H PRN PO PAIN 1-5 WHEN TOLERATING PO Last administered on 12/30/16 05:54; Start 12/27/16 at 11: 30 Acetaminophen/ Hydrocodone Bitart ([place] 10-325 Mg) 2 tab Q4H PRN PO PAIN 6-10 WHEN TOLERATING PO Last administered on 12/30/16 14:24; Start 12/27/16 at 11: 30 Morphine Sulfate (Morphine Inj) 2 mg Q2H PRN IV PUSH PAIN SCALE 1 TO 6 Last administered on 12/29/16 15:05; Start 12/27/16 at 11:30; Stop 01/13/17 at 12: 43; Status DC Morphine Sulfate (Morphine Inj) 4 mg Q2H PRN IV PUSH PAIN SCALE 7 TO 10 Last administered on 12/28/16 18:00; Start 12/27/16 at 11:30; Stop 01/13/17 at 12: 43; Status DC Acetaminophen (Tylenol) 650 mg Q4H PRN PO TEMPERATURE > 101.5 F; Start at 11:30 Meperidine HCl (*DEMEROL INJ PERIprocedural ONLY) 25 mg STK-MED ONCE .ROUTE Last administered on 12/27/16 11:21; Start 12/27/16 at 11:21; Stop 12/27/16 at 11:22; Status DC Calcium Gluconate 1 gm/Sodium Chloride 110 ml @ 110 mls/hr UNSCH PRN IV SEE LABEL COMMENT; Start 12/27/16 at 12:00; Stop 01/10/17 at 16:51; Status DC Miscellaneous Information ALL NURSING DEPARTME... UNSCH PRN .XX SEE LABEL COMMENTS; Start 12/27/16 at 11:45; Stop 12/28/16 at 11:44; Status DC Levetriacetam 500 mg/Sodium Chloride 105 ml @ 400 mls/hr Q12H IV ; Start 12/27 at 22:00; Status Cancel Levetriacetam (Keppra Liq) 500 mg Q12HR PEG Last administered on 01/13/17 08: 44; Start 12/27/16 at 21:00; Stop 01/13/17 at 12:47; Status DC Iohexol (Omnipaque 350 Inj) 85 ml STK-MED ONCE IVCONTRAST Last administered on 12/28/16 17:46; Start 12/28/16 at 17:46; Stop 12/28/16 at 17:47; Status DC Bacitracin (Bacitracin Oint Packet) 0.9 gm DAILY TOPICAL Last administered on 01/16/17 09:02; Start 12/30/16 at 18:31 Date of Insertion: Dec 04, 2016 Line: Central Venous Catheter Side: Left Location: Internal, Jugular A/P Problem List: (1) Subarachnoid hemorrhage due to ruptured aneurysm ICD Code: I60.8 - Other nontraumatic subarachnoid hemorrhage (2) Subdural hematoma ICD Code: I62.00 - Nontraumatic subdural hemorrhage, unspecified (3) Intracranial aneurysm ICD Code: I67.1 - Cerebral aneurysm, nonruptured (4) Respiratory failure ICD Code: J96.90 - Respiratory failure, unspecified, unspecified whether with hypoxia or hypercapnia Status: Acute Assessment and Plan 1. Subdural Hematoma/duraplasty status post left frontotemporal parietal craniotomy 10/08. 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 Initiated . - 10/13 and 10/14 and 10/17) 10/19 left MCA territory vasospasm, status post successful verapamil treatment by IR with 20 mg verapamil - 10/17 CT brain - less hemisphere edema with herniation through left craniotomy site, improved. - Dr. Perry/neurosurgery. S/p left cranioplasty/bone flap 12/27/16. - Echocardiogram 10/14/16 revealed EF 40-45%. Septal hypokinesis. Moderate MR. Severe pulmonary hypertension with pulmonary artery pressures estimated 61 mmHg Limited Echo 11/06: LVEF 60-65%, Trivial mitral and tricuspid regurgitation, No vegetations noted. - On diltiazem's 90 mg by mouth every 6 hours and furosemide 20 mg daily. Monitor BP and if low hold meds. - neurologically stable and doing well, and continued PT and rehabilitation. - PT, OT, speech following. Patient had helmet. Respiratory failure, S/P tracheostomy. Resolved now satting well on Room air. Monitor O2 sat, O2 supplement to keep O2 sat > 94 - S/p Trach Dr. Sullivan/Dr. Collazo 11/01 #8 [place] - CT angiogram chest/neck revealed right centrilobular bleeding likely source right bronchial artery. Repeat CT chest 11/29no visualization of active bleeding.- Resolved - 12/01 - embolization of right bronchial artery by IR- no further bleeding from tracheostomy - Redo trach 11/[address] Sullivan[address]now trach has been removed. - Albuterol/ipratropium aerosols every 6 hours with albuterol aerosols - trach removed Lower extremity edema improved. Ultrasound Doppler reviewed and no DVT. Patient with high risk of bleeding and is not chemoprophylaxis at this time. Continue SCDs and teds for DVT prophylaxis. Ileus- Resolved Elevated transaminases Hyperammonemia protein caloric malnutrition-calorie count performed- treasury accountant recommendations noted; - will hold the tube feeding- will leave the PEG in place and continue to monitor. -treasury accountant following. Right occlusive subclavian, axillary and bilateral superficial cephalic thrombus - limited Echo to evaluate vegetation-neg. 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 Cardizem PO currently and 90 mg every 6 hours (for digital ischemia, Raynaud's) - Continue bacitracin twice a day to affected areas - We'll need to be started on systemic anticoagulation at some point however with recent embolization for hemoptysis holding full anticoagulation at this time. - evaluated by vascular surgery and no interventions recommended at this time. sacral ulcer - ABD dressing with [employer]- staff nurse makes sure to keep area dry. Wound care also consulted. appreciate recommendations. - Turn position every 2 hours - Out of bed to chair activity Course of hospitalization complications Acute hypoxic Respiratory failure secondary to mucous plugging- Resolved Possible healthcare associated pneumonia, Septic Shock- resolved. ARDS - resolved Noncardiogenic/neurogenic pulmonary edema- resolved. Massive Hemoptysis - resolved Aspiration pneumonitis - resolved Cerebral Salt Wasting/SIADH-resolved now hypernatremic - Creatinine currently within normal limits -> resolved. - Monitor urine output Septic and cardiogenic shock- resolved. LV dysfunction secondary to SAH - persistent, now resolved Elevated troponin- secondary to SAH, unlikely to be ACS. - resolved. Pulmonary hypertension s/p PEA arrest 11/28 after ETT dislodgement, hypoxic arrest DVT prop SCD, no chemoprophylaxis secondary to risk for bleeding. Problem Qualifiers (1) Respiratory failure: Qualified Codes: J96.00 - Acute respiratory failure, unspecified whether with hypoxia or hypercapnia Kristina Juárez MD Jan 17, 2017 08:49
[2017-01-17] MEDS: FERROUS SULFATE 325 MG (65 MG ELEMENTAL IRON) TAB PO SCH ×2 (12:10→17:10)
[2017-01-17 12:30] VITALS: BP 114/79; PULSE 87; RESP 16; TEMP 98.1; O2SAT 96
[2017-01-17 15:43] VITALS: BP 110/71; PULSE 87; RESP 18; TEMP 98.5; O2SAT 98
[2017-01-17 20:05] VITALS: BP 121/73; PULSE 89; RESP 20; TEMP 98.7; O2SAT 98
[2017-01-17] MEDS: MELATONIN 5 MG TAB PO SCH (20:59)
[2017-01-18] VITALS: BP 139/83; PULSE 79; RESP 18; TEMP 98.8; O2SAT 97
[2017-01-18 04:00] VITALS: BP 137/81; PULSE 75; RESP 20; TEMP 98.5; O2SAT 96
[2017-01-18] MEDS: DILTIAZEM HCL 90 MG TAB PO SCH ×4 (06:00→17:44)
[2017-01-18] MEDS: CHLORHEXIDINE 0.12% (ORAL KIT) 15 ML CUP MT SCH ×2 (08:00→20:00)
[2017-01-18] MEDS: ARTIFICIAL TEARS OPTH SOLN 15 ML BTL EACH EYE SCH ×3 (09:00→17:44)
[2017-01-18] MEDS: BACITRACIN TOP OINT 15 GM TUBE TOPICAL SCH ×2 (09:00→21:00)
[2017-01-18] MEDS: LACTOBACILLUS ACIDOPHILUS TAB PO SCH ×3 (09:04→17:44)
[2017-01-18] MEDS: DOCUSATE SODIUM 100 MG CAP PO SCH ×2 (09:04→20:08)
[2017-01-18] MEDS: ASCORBIC ACID 500 MG TAB PO SCH ×2 (09:04→20:08)
[2017-01-18] MEDS: FAMOTIDINE 20 MG TAB PO SCH ×2 (09:04→20:08)
[2017-01-18] MEDS: BACITRACIN OINT 0.9 GM PKT TOPICAL SCH (09:05)
--- NOTE | 2017-01-18 10:19 | HHI.PR ---
Subjective Remarks in no acute distress. denies pain. no new complaints. Objective Vitals Vital Signs Date Time Temp Pulse Resp B/P (MAP) Pulse Ox O2 Delivery O2 Flow Rate FiO2 01/18/17 04:00 98.5 75 20 137/81 (99) 96 01/18/17 00:00 98.8 79 18 139/83 (101) 97 01/17/17 20:05 98.7 89 20 121/73 (89) 98 01/17/17 15:43 98.5 87 18 110/71 (84) 98 01/17/17 12:30 98.1 87 16 114/79 (91) 96 I/O 01/17/17 01/17/17 01/17/17 01/18/17 01/18/17 01/18/17 07:00 15:00 23:00 07:00 15:00 23:00 Intake Total 422 ml 820 ml Output Total 1000 ml 400 ml 200 ml 925 ml Balance -578 ml -400 ml 620 ml -925 ml Intake Oral 820 ml Tube Feeding 322 ml Other 100 ml Output Urine Total 1000 ml 400 ml 200 ml 925 ml Imaging Last Impressions Lower Extremity Ultrasound 12/29/16 0000 Signed Impressions: Service Date/Time: December 13:07 - CONCLUSION: No sonographic or Doppler findings of deep venous thrombosis. Joni Shelton MD Carotid Artery Ultrasound 12/27/16 0000 Signed Impressions: Service Date/Time: Tuesday, December 27, 2016 17:19 - CONCLUSION: Mild plaque at the carotid bulb regions bilaterally without a significant stenosis seen. Yosvany Alfaro MD Aorta w/Runoff CTA 12/27/16 0000 Signed Impressions: Service Date/Time: Wednesday, December 28, 2016 17:28 - CONCLUSION: Atherosclerotic calcification seen throughout the arterial system without an area of significant stenosis. The trifurcation vessels are only faintly opacified. Yosvany Alfaro MD Modified Barium Swallow 12/23/16 0000 Signed Impressions: Service Date/Time: Friday, December 23, 2016 09:11 - CONCLUSION: Negative for aspiration.. Remington Woodward MD FACR Chest X-Ray 12/04/16 3415 Signed Impressions: Service Date/Time: Sunday, December 04, 2016 18:55 - CONCLUSION: 1. Placement of left central line tip in superior vena cava. No pneumothorax. Mild basilar airspace disease. Small right effusion. Gurwinder Root MD Upper Extremity Ultrasound 12/04/16 Signed Impressions: Service Date/Time: Sunday, December 04, 2016 15:37 - CONCLUSION: 1. Positive for occlusive deep venous thrombosis in the right axillary and subclavian vein. Occlusive superficial thrombus in bilateral cephalic veins. Gurwinder Root MD Angiography 12/01/16 Signed Impressions: Service Date/Time: November 14:02 - CONCLUSION: 1. Right side up on her hemorrhage with angiography of the right bronchial artery revealing no source of active hemorrhage. Empiric embolization was performed. Santos Crockett Jr., MD Chest CT 11/28/16 Signed Impressions: Service Date/Time: Tuesday, November 29, 2016 05:13 - CONCLUSION: 1. Patchy alveolar disease characteristic of edema or pneumonia. 2. Severe emphysema 3. Gastrojejunostomy tube looped in the stomach Harvey Morejon MD Chest/Thorax CTA 11/26/16 Signed Impressions: Service Date/Time: Saturday, November 26, 2016 20:18 - CONCLUSION: 1. Extensive filling defects within the right central bronchial tree characteristic of endobronchial hemorrhage. 2. Consolidating airspace disease in the right upper lobe and right lower lobe characteristic of hemorrhage and post obstructive lung consolidation. 3. Right bronchial artery is identified extending to the central right bronchial region 4. Advanced COPD. Nasir Amanda MD Abdomen X-Ray 11/19/16599 Signed Impressions: Service Date/Time: Saturday, November 19, 2016 02:44 - CONCLUSION: Unchanged bowel gas pattern potentially relating to an ileus. Santos Crockett Jr., MD Transcranial Doppler Study Complete 10/20/16599 Signed Impressions: Service Date/Time: October 07:54 - CONCLUSION: Slight interval elevation of flow velocity measurements and ratio on the left Yosvany Polk MD Liver Ultrasound 10/19/16 Signed Impressions: Service Date/Time: Wednesday, October 19, 2016 11:20 - CONCLUSION: 1. Sludge filled gallbladder with thickened wall. 2. Moderate size bilateral pleural effusions and mild upper abdominal ascites. Santos Vazquez MD Cerebral Arteriogram 9/6/17 0000 Signed Impressions: Service Date/Time: Wednesday, October 19, 2016 12:47 - CONCLUSION: Uncomplicated cerebral arteriography with spasmolytic therapy as described in detail above. Yosvany Polk MD Head CT 10/17/16 0000 Signed Impressions: Service Date/Time: Monday, October 17, 2016 15:06 - CONCLUSION: Ventricles are slightly larger without ventriculostomy. Edema in the left hemisphere the brain herniating through the operative site. Remington Woodward MD FACR Infusion Non-thrombolysis 10/14/16 1103 Signed Impressions: Service Date/Time: Friday, October 14, 2016 10:21 - CONCLUSION: 1. Uncomplicated infusion for spasmolysis Harvey Morejon MD Neck CTA 10/07/16 0000 Signed Impressions: Service Date/Time: Friday, October 07, 2016 15:03 - CONCLUSION: 1. Mild carotid bulb atherosclerotic calcification bilaterally. However, no significant stenosis is present in either internal carotid artery. 2. Paranasal sinus mucoperiosteal thickening. 3. Please refer to brain CTA report for description of the intracranial findings. Yosvany Ramirez MD Head CTA 10/07/16 0000 Signed Impressions: Service Date/Time: Friday, October 07, 2016 15:03 - CONCLUSION: 1. 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 2. Large left subdural hematoma measuring 1.3 cm in depth with a significant, 1.6 cm left to right subfalcine shift. Joni Shelton MD Objective Remarks GENERAL: This is a well-nourished, well-developed patient, in no apparent distress. CARDIOVASCULAR: Regular rate and regular rhythm without murmurs, gallops, or rubs. RESPIRATORY: Clear to auscultation. Breath sounds equal bilaterally. No wheezes , rales, or rhonchi. GASTROINTESTINAL: Abdomen soft, non-tender, nondistended. Normal, active bowel sounds MUSCULOSKELETAL: Extremities without clubbing, cyanosis, or edema. NEURO: awake and alert. Procedures 10/13 Four-vessel cerebral angiography with verapamil treatment of vasospasm Status post left frontotemporal parietal craniectomy 10/08 for evacuation subdural hematoma/duraplasty. 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 parietal cranioplasty with replacement of skull flap by Dr Perry neurosurgery on 12/27/16 Medications and IVs Current Medications Iohexol (Omnipaque 350 Inj) 100 ml STK-MED ONCE IVCONTRAST Last administered on 10/07/16 14:21; Start 10/07/16 at 14:21; Stop 10/07/16 at 15:21; Status DC Mannitol 50 ml @ As Directed STK-MED ONCE .ROUTE ; Start 10/07/16 at 15:25; Stop 10/07/16 at 15:26; Status DC Propofol 0 ml @ As Directed STK-MED ONCE .ROUTE ; Start 10/07/16 at 15:25; Stop 10/07/16 at 15:26; Status DC Levetriacetam (Keppra Inj) 1,000 mg STK-MED ONCE IV Last administered on 18:30; Start 10/07/16 at 15:27; Stop 10/07/16 at 15:28; Status DC Mannitol (Mannitol Inj) 50 gm ONCE ONCE IV Last administered on 10/13/16 21: 00; Start 10/07/16 at 15:30; Stop 10/07/16 at 15:31; Status DC Nicardipine HCl 25 mg/Sodium Chloride 260 ml @ 52 mls/hr Q5H PRN IV Blood pressure management; Start 10/07/16 at 15:40; Stop 10/14/16 at 21:02; Status DC Propofol 100 ml @ 0 mls/hr Q0M PRN IV Ordered RASS Last administered on 23:01; Start 10/07/16 at 15:40; Stop 10/07/16 at 23:16; Status DC Sodium Chloride 1,000 ml @ 75 mls/hr [id number] IV ; Start 10/07/16 at 16:08; Stop 10/07/16 at 18:34; Status DC Sodium Chloride (NS Flush) 2 ml UNSCH PRN IV FLUSH FLUSH AFTER USING IV ACCESS ; Start 10/07/16 at 16:15; Stop 10/07/16 at 18:40; Status DC Sodium Chloride (NS Flush) 2 ml BID IV FLUSH ; Start 10/07/16 at 21:00; Stop at 21:00; Status DC Acetaminophen (Tylenol) 650 mg Q6H PRN PO PAIN 1-10 AND/OR FEVER >101F; Start 10/07/16 at 16:15; Stop 10/07/16 at 19:04; Status DC Albuterol/ Ipratropium (Duoneb Neb) 1 ampule Q6HR NEB NEB Last administered on 10/11/16 15:16; Start 10/07/16 at 22:00; Stop 10/11/16 at 21:59; Status DC Albuterol/ Ipratropium (Duoneb Neb) 1 ampule Q4HR NEB PRN INH SHORTNESS OF BREATH Last administered on 10/14/16 19:33; Start 10/07/16 at 16:15; Stop at 09:43; Status DC Chlorhexidine Gluconate (Peridex 0.12% Liq) 15 ml BID@08,20 MT Last administered on 11/28/16 08:00; Start 10/07/16 at 20:00; Stop 11/28/16 at 11: 18; Status DC Pantoprazole Sodium (Protonix Inj) 40 mg DAILY IV ; Start 10/08/16 at 09:00; Stop 10/08/16 at 09:00; Status DC Miscellaneous Information 1 [id number] ; Start 10/07/16 at 16:15; Stop 10/19/16 at 12:07; Status DC Chlorhexidine Gluconate (Chlorhexidine 2% Cloth) Taper DAILY@04 TOP Last administered on 10/19/16 03:13; Start 10/08/16 at 04:00; Stop 10/19/16 at 12:07; Status DC Chlorhexidine Gluconate (Chlorhexidine 2% Cloth) 3 pack UNSCH PRN TOP HYGIENIC CARE; Start 10/07/16 at 16:15; Stop 10/19/16 at 12:07; Status DC Insulin Aspart (NovoLOG SUPPLEMENTAL SCALE) 1 Q6HR SQ Last administered on 06:40; Start 10/07/16 at 18:00; Stop 10/20/16 at 09:23; Status DC Propofol 100 ml @ 0 mls/hr Q0M PRN IV SEDATION; Start 10/07/16 at 16:08; Status UNV Nimodipine (Nimotop) 60 mg Q4HR OG-TUBE Last administered on 10/12/16 15:18; Start 10/07/16 at 20:00; Stop 10/12/16 at 23:47; Status DC Verapamil HCl (Isoptin Inj) 10 mg STK-MED ONCE .ROUTE ; Start 10/07/16 at 16:45 ; Stop 10/07/16 at 16:46; Status DC Nitroglycerin (Nitroglycerin 2% Oint) 1 inch STK-MED ONCE .ROUTE ; Start at 16:55; Stop 10/07/16 at 16:56; Status DC Heparin Sodium (Porcine) (Heparin Inj) 10,000 units STK-MED ONCE .ROUTE ; Start 10/07/16 at 16:56; Stop 10/07/16 at 16:57; Status DC Potassium Chloride/Sodium Chloride 1,000 ml @ 100 mls/hr Q10H IV Last administered on 10/14/16 07:08; Start 10/07/16 at 18:20; Stop 10/14/16 at 21:02; Status DC IV Flush (NS Flush) 2 ml UNSCH PRN IVF FLUSH AFTER USING IV ACCESS; Start 10/07 at 18:30; Stop 10/19/16 at 12:09; Status DC IV Flush (NS Flush) 2 ml BID IVF Last administered on 10/19/16 09:00; Start at 21:00; Stop 10/19/16 at 12:09; Status DC Cefazolin Sodium/ Dextrose 50 ml @ 100 mls/hr Q8H IV Last administered on 10/08 10:30; Start 10/07/16 at 19:00; Stop 10/08/16 at 11:29; Status DC Levetriacetam 500 mg/Sodium Chloride 105 ml @ 400 mls/hr Q12H IV Last administered on 10/31/16 05:11; Start 10/08/16 at 06:00; Stop 10/31/16 at 10:47 ; Status DC Bisacodyl (Dulcolax Supp) 10 mg DAILY PRN RECTAL CONSTIPATION; Start 10/07/16 at 18:30; Stop 10/31/16 at 10:47; Status DC Docusate Sodium (Colace) 100 mg BID PO Last administered on 10/19/16 09:00; Start 10/07/16 at 21:00; Stop 10/19/16 at 12:15; Status DC Pantoprazole Sodium (Protonix) 40 mg DAILY PO Last administered on 10/14/16 07: 47; Start 10/08/16 at 09:00; Stop 10/19/16 at 09:46; Status DC Pantoprazole Sodium (Protonix Inj) 40 mg DAILY IVP Last administered on 07:45; Start 10/08/16 at 09:00; Stop 10/12/16 at 14:30; Status DC Ondansetron HCl (Zofran Inj) 4 mg Q6H PRN IV NAUSEA OR VOMITING Last administered on 11/13/16 20:31; Start 10/07/16 at 18:30; Stop 12/08/16 at 13: 55; Status DC Calcium Gluconate (Calcium Gluconate Inj) 1 gm UNSCH PRN IV SEE LABEL COMMENTS Last administered on 10/16/16 10:00; Start 10/07/16 at 18:30; Stop 11/17/16 at 14:34; Status DC Potassium Chloride 100 ml @ 50 mls/hr UNSCH PRN IV POTASSIUM LESS THAN 4 Last administered on 12/02/16 08:13; Start 10/07/16 at 18:30; Stop 12/16/16 at 15: 01; Status DC Magnesium Sulfate 4 gm/Sodium Chloride 108 ml @ 108 mls/hr UNSCH PRN IV MAGNESIUM LESS THAN 2; Start 10/07/16 at 18:30; Stop 12/27/16 at 11:35; Status DC Acetaminophen/ Hydrocodone Bitart ([place] 10-325 Mg) 1 tab Q4H PRN PO PAIN SCALE 1 TO 5 Last administered on 10/13/16 13:07; Start 10/07/16 at 18:30; Stop 10/15/16 at 08:05; Status DC Acetaminophen/ Hydrocodone Bitart ([place] 10-325 Mg) 2 tab Q4H PRN PO PAIN SCALE 6 TO 10 Last administered on 10/09/16 10:20; Start 10/07/16 at 18:30; Stop 10/15/16 at 08:05; Status DC Morphine Sulfate (Morphine Inj) 2 mg Q2H PRN IV PUSH PAIN SCALE 1 TO 6 Last administered on 10/10/16 17:52; Start 10/07/16 at 18:30; Stop 10/15/16 at 08:05 ; Status DC Morphine Sulfate (Morphine Inj) 4 mg Q2H PRN IV PUSH PAIN SCALE 7 TO 10 Last administered on 10/08/16 01:55; Start 10/07/16 at 18:30; Stop 10/15/16 at 08:05 ; Status DC Acetaminophen (Tylenol) 650 mg Q4H PRN PO TEMP >100.4 Last administered on 11/14 03:07; Start 10/07/16 at 18:30; Stop 11/30/16 at 13:12; Status DC Iodixanol (VISIPAQUE 320 INJ (Rad Spec)) 65 ml STK-MED ONCE I-ARTERIAL Last administered on 10/07/16 18:38; Start 10/07/16 at 18:38; Stop 10/07/16 at 18:39 ; Status DC Dextrose (D50w (Vial) Inj) 50 ml UNSCH PRN IV PUSH HYPOGLYCEMIA - SEE COMMENTS Last administered on 11/01/16 09:22; Start 10/07/16 at 19:15; Stop 11/12/16 at 08:41; Status DC Glucagon (Glucagon Inj) 1 mg UNSCH PRN OTHER HYPOGLYCEMIA-SEE COMMENTS; Start 10/07/16 at 19:15; Stop 11/12/16 at 08:42; Status DC Midazolam HCl (Versed Inj) 4 mg STK-MED ONCE .ROUTE ; Start 10/07/16 at 19:51; Stop 10/07/16 at 19:52; Status DC Fentanyl Citrate (fentaNYL INJ) 250 mcg STK-MED ONCE .ROUTE ; Start 10/07/16 at 20:32; Stop 10/07/16 at 20:33; Status DC Propofol 100 ml @ 0 mls/hr TITRATE PRN IV Sedation Last administered on 05:31; Start 10/07/16 at 23:15; Stop 11/01/16 at 14:52; Status DC Epinephrine HCl (EPINEPHrine (1:10,000) INJ) 1 mg STK-MED ONCE .ROUTE ; Start at 04:09; Stop 10/09/16 at 04:10; Status DC Atropine Sulfate (Atropine Inj) 1 mg STK-MED ONCE .ROUTE ; Start 10/09/16 at 04: 09; Stop 10/09/16 at 04:10; Status DC Lidocaine HCl (Xylocaine 2% Inj) 100 mg STK-MED ONCE .ROUTE ; Start 10/09/16 at 04:09; Stop 10/09/16 at 04:10; Status DC Nimodipine (Nimotop) 60 mg Q4HR PO Last administered on 11/02/16 20:23; Start 10/13/16 at 00:00; Stop 11/02/16 at 23:59; Status DC Verapamil HCl (Isoptin Inj) 20 mg STK-MED ONCE .ROUTE Last administered on 10/13 17:10; Start 10/13/16 at 17:10; Stop 10/13/16 at 17:11; Status DC Iodixanol (VISIPAQUE 320 INJ (Rad Spec)) 45 ml STK-MED ONCE I-ARTERIAL Last administered on 10/13/16 17:40; Start 10/13/16 at 17:49; Stop 10/13/16 at 17:50 ; Status DC Midazolam HCl (Versed Inj) 2 mg STK-MED ONCE .ROUTE ; Start 10/13/16 at 18:32; Stop 10/13/16 at 18:33; Status DC Fentanyl Citrate (fentaNYL INJ) 200 mcg STK-MED ONCE .ROUTE ; Start 10/13/16 at 18:32; Stop 10/13/16 at 18:33; Status DC Sodium Chloride 2,000 ml @ 0 mls/hr Q0M IV Last administered on 10/14/16 20:20 ; Start 10/13/16 at 21:45; Stop 10/14/16 at 23:59; Status DC Phenylephrine HCl (Neosynephrine Inj) 10 mg STK-MED ONCE .ROUTE Last administered on 10/14/16 09:10; Start 10/14/16 at 09:10; Stop 10/14/16 at 09:11; Status DC Verapamil HCl (Isoptin Inj) 20 mg STK-MED ONCE .ROUTE Last administered on 10:19; Start 10/14/16 at 10:19; Stop 10/14/16 at 10:20; Status DC Fentanyl Citrate (fentaNYL INJ) 100 mcg STK-MED ONCE .ROUTE Last administered on 10/14/16 10:32; Start 10/14/16 at 10:32; Stop 10/14/16 at 10:33; Status DC Midazolam HCl (Versed Inj) 2 mg STK-MED ONCE .ROUTE Last administered on 10:32; Start 10/14/16 at 10:32; Stop 10/14/16 at 10:33; Status DC Midazolam HCl (Versed Inj) 2 mg STK-MED ONCE .ROUTE ; Start 10/14/16 at 10:32; Stop 10/14/16 at 10:33; Status DC Vasopressin 40 units/Dextrose 100 ml @ 4.5 mls/hr [id number] IV Last administered on 10/25/16 02:30; Start 10/14/16 at 11:30; Stop 10/31/16 at 10:47 ; Status DC Albumin Human (Albumin 5% Inj) 25 gm ONCE ONCE IV Last administered on 11:34; Start 10/14/16 at 11:15; Stop 10/14/16 at 11:17; Status DC Iodixanol (VISIPAQUE 320 INJ (Rad Spec)) 10 ml STK-MED ONCE I-ARTERIAL Last administered on 10/14/16 11:06; Start 10/14/16 at 11:06; Stop 10/14/16 at 11:07; Status DC Fludrocortisone Acetate (Florinef) 0.1 mg BID PO Last administered on 10/15/16 11:39; Start 10/14/16 at 11:45; Stop 10/15/16 at 13:17; Status DC Phenylephrine HCl (Neosynephrine Inj) 10 mg STK-MED ONCE .ROUTE Last administered on 10/14/16 12:18; Start 10/14/16 at 12:18; Stop 10/14/16 at 12:19; Status DC Norepinephrine Bitartrate 250 ml @ As Directed STK-MED ONCE IV ; Start 10/14/16 at 13:14; Stop 10/14/16 at 13:15; Status DC Norepinephrine Bitartrate (Levophed Inj) 4 mg STK-MED ONCE .ROUTE Last administered on 10/14/16 13:15; Start 10/14/16 at 13:15; Stop 10/14/16 at 13:16; Status DC Etomidate (Amidate Inj) 20 mg STK-MED ONCE .ROUTE Last administered on 14:18; Start 10/14/16 at 13:44; Stop 10/14/16 at 13:45; Status DC Midazolam HCl (Versed Inj) 5 mg STK-MED ONCE .ROUTE Last administered on 14:18; Start 10/14/16 at 13:44; Stop 10/14/16 at 13:45; Status DC Rocuronium [place] (Zemuron Inj) 50 mg STK-MED ONCE .ROUTE Last administered on 10/14/16 14:17; Start 10/14/16 at 13:45; Stop 10/14/16 at 13:46; Status DC Fentanyl Citrate 250 ml @ 5 mls/hr TITRATE PRN IV SEDATION Last administered on 10/30/16 17:39; Start 10/14/16 at 15:00; Stop 11/01/16 at 14:52; Status DC Phenylephrine HCl (Neosynephrine Inj) 10 mg STK-MED ONCE .ROUTE Last administered on 10/14/16 14:26; Start 10/14/16 at 14:26; Stop 10/14/16 at 14:27; Status DC Norepinephrine Bitartrate 4 mg/ Sodium Chloride 250 ml @ 7.5 mls/hr TITRATE PRN IV Blood pressure management Last administered on 10/15/16 15:05; Start 10/14 at 14:45; Stop 10/15/16 at 14:54; Status DC Terbutaline Sulfate (Brethine Inj) 1 mg UNSCH PRN SQ For Extravasation; Start 10/14/16 at 14:45; Stop 10/19/16 at 12:10; Status DC Rocuronium [place] (Zemuron Inj) 50 mg STK-MED ONCE .ROUTE Last administered on 10/14/16 14:43; Start 10/14/16 at 14:43; Stop 10/14/16 at 14:44; Status DC Midazolam HCl 100 ml @ 2 mls/hr TITRATE PRN IV SEDATION Last administered on 22:54; Start 10/14/16 at 15:00; Stop 10/25/16 at 08:47; Status DC Phenylephrine HCl (Neosynephrine Inj) 10 mg STK-MED ONCE .ROUTE ; Start 10/14/16 at 18:03; Stop 10/14/16 at 18:04; Status DC Phenylephrine HCl 40 mg/Dextrose 500 ml @ 30 mls/hr TITRATE PRN IV Blood pressure management Last administered on 10/15/16 15:02; Start 10/14/16 at 18:30 ; Stop 10/15/16 at 15:36; Status DC Terbutaline Sulfate (Brethine Inj) 1 mg UNSCH PRN SQ For Extravasation; Start 10/14/16 at 18:15; Stop 10/15/16 at 08:05; Status DC Heparin Sodium (Porcine) (Heparin Inj) 5,000 units Q8HR SQ Last administered on 11/13/16 21:20; Start 10/14/16 at 22:00; Status Future Hold Isoproterenol HCl 2 mg/Dextrose 260 ml @ 23.4 mls/hr TITRATE PRN IV Hypotension Last administered on 10/14/16 21:26; Start 10/14/16 at 21:00; Stop at 16:24; Status DC Sodium Chloride 1,000 ml @ 50 mls/hr Q20H IV Last administered on 10/15/16 09: 54; Start 10/14/16 at 21:15; Stop 10/16/16 at 09:17; Status DC Phenylephrine HCl (Neosynephrine Inj) 40 mg STK-MED ONCE .ROUTE ; Start 10/14/16 at 23:30; Stop 10/14/16 at 23:31; Status DC Phenylephrine HCl (Neosynephrine Inj) 10 mg STK-MED ONCE .ROUTE ; Start 10/14/16 at 23:31; Stop 10/14/16 at 23:32; Status DC Epinephrine HCl 2 mg/Dextrose 252 ml @ 22.68 mls/ hr TITRATE PRN IV Blood Pressure Management Last administered on 10/15/16 15:03; Start 10/15/16 at 02:00 ; Stop 10/15/16 at 14:54; Status DC Epinephrine HCl (Adrenalin (1:1000) Inj) 2 mg STK-MED ONCE .ROUTE ; Start at 01:59; Stop 10/15/16 at 02:00; Status DC Lorazepam (Ativan Inj) 2 mg STK-MED ONCE .ROUTE ; Start 10/15/16 at 02:13; Stop 10/15/16 at 02:14; Status DC Epoprostenol Sodium 75 ml/ Sodium Chloride 100 ml @ 8 mls/hr Q8H NEB Last administered on 10/21/16 15:25; Start 10/15/16 at 03:00; Stop 10/21/16 at 16:05; Status DC Lorazepam (Ativan Inj) 2 mg ONCE ONCE IV PUSH Last administered on 10/15/16 03 :33; Start 10/15/16 at 02:30; Stop 10/15/16 at 02:37; Status DC Fosphenytoin Sodium 1000 mgpe/ Sodium Chloride 70 ml @ 280 mls/hr ONCE ONCE IV Last administered on 10/15/16 03:32; Start 10/15/16 at 02:30; Stop 10/15/16 at 02:44; Status DC Fosphenytoin Sodium (Cerebyx Inj) 100 mgpe Q8HR IV Last administered on 06:28; Start 10/15/16 at 10:00; Stop 10/25/16 at 14:25; Status DC Calcium Chloride 1 gm/Sodium Chloride 110 ml @ 110 mls/hr ONCE ONCE IV Last administered on 10/15/16 03:52; Start 10/15/16 at 03:15; Stop 10/15/16 at 04:14; Status DC Pharmacy Profile Note 0 ml @ 0 mls/hr UNSCH OTHER ; Start 10/15/16 at 03:30; Stop 10/18/16 at 07:20; Status DC Cefepime HCl 2000 mg/Sodium Chloride 100 ml @ 200 mls/hr Q8H IV Last administered on 10/18/16 03:34; Start 10/15/16 at 04:00; Stop 10/18/16 at 07:20; Status DC Azithromycin 500 mg/Sodium Chloride 250 ml @ 250 mls/hr Q24H IV Last administered on 10/18/16 03:34; Start 10/15/16 at 04:00; Stop 10/18/16 at 07:20; Status DC Albuterol/ Ipratropium (Duoneb Neb) 1 ampule Q4HR WHILE AWAKE NEB NEB Last administered on 10/18/16 20:21; Start 10/15/16 at 08:00; Stop 10/19/16 at 07:59; Status DC Vancomycin HCl 1000 mg/Sodium Chloride 250 ml @ 250 mls/hr ONCE ONCE IV Last administered on 10/15/16 07:02; Start 10/15/16 at 05:00; Stop 10/15/16 at 05:59; Status DC Hydrocortisone Sodium Succinate (SoluCORTEF INJ) 100 mg Q8H IV PUSH Last administered on 10/22/16 04:34; Start 10/15/16 at 04:00; Stop 10/22/16 at 10:29; Status DC Phenylephrine HCl (Neosynephrine Inj) 20 mg STK-MED ONCE .ROUTE ; Start 10/15/16 at 04:35; Stop 10/15/16 at 04:36; Status DC Sodium Chloride 500 ml @ 30 mls/hr CONTINUOUS IV Last administered on 11:43; Start 10/15/16 at 08:00; Stop 10/22/16 at 10:29; Status DC Calcium Gluconate 2 gm/Sodium Chloride 120 ml @ 120 mls/hr ONCE ONCE IV Last administered on 10/15/16 09:26; Start 10/15/16 at 09:00; Stop 10/15/16 at 09:59; Status DC Albumin Human (Albumin 5% Inj) 12.5 gm STK-MED ONCE IV Last administered on 10/15 09:17; Start 10/15/16 at 09:17; Stop 10/15/16 at 09:18; Status DC Rocuronium [place] (Zemuron Inj) 50 mg STK-MED ONCE .ROUTE Last administered on 10/15/16 09:50; Start 10/15/16 at 09:50; Stop 10/15/16 at 09:51; Status DC Vancomycin HCl 1250 mg/Sodium Chloride 262.5 ml @ 262.5 mls/ hr Q12H IV Last administered on 10/17/16 05:57; Start 10/15/16 at 18:00; Stop 10/17/16 at 09:41; Status DC Miscellaneous Information SPECIFIC LAB TO BE LI... ONCE ONCE .XX Last administered on 10/17/16 05:45; Start 10/17/16 at 05:45; Stop 10/17/16 at 05:46; Status DC Cisatracurium Besylate 100 mg/ Sodium Chloride 260 ml @ 11.24 mls/ hr TITRATE PRN IV TOF 1/4 Last administered on 10/21/16 12:59; Start 10/15/16 at 13:00; Stop 10/31/16 at 10:47; Status DC Sodium Chloride 240 meq/Syringe / Bag 60 ml @ 120 mls/hr ONCE ONCE IV Last administered on 10/15/16 13:25; Start 10/15/16 at 13:15; Stop 10/15/16 at 13:44; Status DC Sodium Chloride (Sodium Chloride) 3 gm TID PO Last administered on 11/04/16 10 :18; Start 10/15/16 at 13:15; Stop 11/04/16 at 11:21; Status DC Fludrocortisone Acetate (Florinef) 0.2 mg BID PO Last administered on 10/16/16 08:12; Start 10/15/16 at 21:00; Stop 10/16/16 at 09:12; Status DC Epinephrine HCl 2 mg/Dextrose 252 ml @ 22.68 mls/ hr TITRATE PRN IV Blood Pressure Management; Start 10/15/16 at 15:00; Stop 10/15/16 at 15:32; Status DC Norepinephrine Bitartrate 4 mg/ Sodium Chloride 250 ml @ 7.5 mls/hr TITRATE PRN IV Blood pressure management; Start 10/15/16 at 15:00; Stop 10/15/16 at 15:56 ; Status DC Sodium Chloride 240 meq/Syringe / Bag 60 ml @ 120 mls/hr ONCE ONCE IV Last administered on 10/15/16 15:33; Start 10/15/16 at 15:30; Stop 10/15/16 at 15:59; Status DC Epinephrine HCl 8 mg/Dextrose 250 ml @ 5.62 mls/hr TITRATE PRN IV Blood Pressure Management Last administered on 10/17/16 08:30; Start 10/15/16 at 15:30 ; Stop 10/17/16 at 10:08; Status DC Phenylephrine HCl 160 mg/Dextrose 500 ml @ 7.5 mls/hr TITRATE PRN IV Blood Pressure Management Last administered on 10/18/16 09:34; Start 10/15/16 at 15:45 ; Stop 10/17/16 at 10:08; Status DC Terbutaline Sulfate (Brethine Inj) 1 mg UNSCH PRN SQ FOR EXTRAVASATION PROTOCOL ; Start 10/15/16 at 15:45; Stop 11/01/16 at 07:51; Status DC Norepinephrine Bitartrate 16 mg/ Sodium Chloride 250 ml @ 1.87 mls/hr TITRATE PRN IV Blood pressure management Last administered on 10/17/16 09:11; Start 10/15 at 16:00; Stop 10/17/16 at 10:08; Status DC Calcium Gluconate 3 gm/Sodium Chloride 130 ml @ 120 mls/hr ONCE ONCE IV Last administered on 10/16/16 09:48; Start 10/16/16 at 10:00; Stop 10/16/16 at 11:04; Status DC Sodium Chloride 240 meq/Syringe / Bag 60 ml @ 120 mls/hr ONCE ONCE IV Last administered on 10/16/16 09:48; Start 10/16/16 at 10:00; Stop 10/16/16 at 10:29; Status DC Magnesium Oxide (Mag-Ox) 800 mg UNSCH PRN PO For Magnesium 1.2 - 1.6 mg/dL; Start 10/16/16 at 09:15; Stop 11/25/16 at 09:51; Status DC Magnesium Sulfate 4 gm/Sodium Chloride 100 ml @ 50 mls/hr UNSCH PRN IV For Magnesium 0.9 - 1.1 mg/dL; Start 10/16/16 at 09:15; Stop 11/25/16 at 09:51; Status DC Magnesium Sulfate 2 gm/Sodium Chloride 100 ml @ 50 mls/hr UNSCH PRN IV For Magnesium 1.2 - 1.6 mg/dL; Start 10/16/16 at 09:15; Stop 11/25/16 at 09:51; Status DC Potassium Chloride 100 ml @ 50 mls/hr Q2H PRN IV For Potassium 2.8 - 3.2 mEq/ L Last administered on 11/15/16 12:36; Start 10/16/16 at 09:15; Stop 11/25/16 at 09:51; Status DC Potassium Chloride 100 ml @ 50 mls/hr Q2H PRN IV For Potassium 3.3 - 3.5 mEq/L ; Start 10/16/16 at 09:15; Stop 11/25/16 at 09:51; Status DC Potassium Chloride 100 ml @ 50 mls/hr Q2H PRN IV For Potassium 2.8 - 3.2 mEq/ L Last administered on 10/27/16 13:26; Start 10/16/16 at 09:15; Stop 11/25/16 at 09:51; Status DC Potassium Chloride 100 ml @ 25 mls/hr UNSCH PRN IV For Potassium 3.3 - 3.5 mEq /L Last administered on 10/30/16 06:06; Start 10/16/16 at 09:15; Stop 11/25/16 at 09:51; Status DC Potassium Phosphate (K-Phos) 2,000 mg Q4H PRN PO For Phosphorus < 2.5 mg/dL; Start 10/16/16 at 09:15; Stop 11/25/16 at 09:51; Status DC Potassium Phosphate (K-Phos) 2,000 mg UNSCH PRN PO/TUBE SEE LABEL COMMENTS; Start 10/16/16 at 09:15; Stop 11/25/16 at 09:51; Status DC Potassium Phosphate 30 mmol/ Sodium Chloride 260 ml @ 42 mls/hr UNSCH PRN IV SEE LABEL COMMENTS Last administered on 10/24/16 20:39; Start 10/16/16 at 09:15 ; Stop 11/25/16 at 09:51; Status DC Sodium Phosphate 30 mmol/Sodium Chloride 250 ml @ 42 mls/hr UNSCH PRN IV For Phosphorus < 2.5 mg/dL Last administered on 10/22/16 06:46; Start 10/16/16 at 09: 15; Stop 11/25/16 at 09:51; Status DC Furosemide (Lasix Inj) 40 mg STK-MED ONCE .ROUTE Last administered on 10/16/16 13:27; Start 10/16/16 at 13:27; Stop 10/16/16 at 13:28; Status DC Vancomycin HCl 1250 mg/Sodium Chloride 262.5 ml @ 250 mls/hr Q8H IV Last administered on 10/18/16 06:10; Start 10/17/16 at 14:00; Stop 10/18/16 at 07:20; Status DC Miscellaneous Information SPECIFIC LAB TO BE LI... ONCE ONCE .XX Last administered on 10/18/16 05:45; Start 10/18/16 at 05:45; Stop 10/18/16 at 05:46; Status DC Sodium Chloride 1,000 ml @ 999 mls/hr BOLUS ONCE IV Last administered on 10:45; Start 10/17/16 at 11:00; Stop 10/17/16 at 12:00; Status DC Epinephrine HCl 8 mg/Dextrose 250 ml @ 5.62 mls/hr TITRATE PRN IV Blood Pressure Management; Start 10/17/16 at 10:15; Status Cancel Norepinephrine Bitartrate 16 mg/ Sodium Chloride 250 ml @ 1.87 mls/hr TITRATE PRN IV Blood pressure management Last administered on 10/20/16 01:07; Start 10/17 at 10:15; Stop 10/31/16 at 10:47; Status DC Phenylephrine HCl 160 mg/Dextrose 500 ml @ 7.5 mls/hr TITRATE PRN IV Blood Pressure Management Last administered on 10/23/16 14:21; Start 10/17/16 at 10:15 ; Stop 10/29/16 at 11:49; Status DC Epinephrine HCl 8 mg/Dextrose 250 ml @ 5.62 mls/hr TITRATE PRN IV Blood Pressure Management Last administered on 10/20/16 15:14; Start 10/17/16 at 11:15 ; Stop 10/29/16 at 11:49; Status DC Heparin Sodium (Porcine) (*HEPARIN INJ Periprocedural ONLY) 10,000 units STK- MED ONCE .ROUTE Last administered on 10/17/16 14:54; Start 10/17/16 at 14:54; Stop 10/17/16 at 14:55; Status DC Verapamil HCl (Isoptin Inj) 20 mg STK-MED ONCE .ROUTE Last administered on 15:34; Start 10/17/16 at 15:34; Stop 10/17/16 at 15:35; Status DC Iodixanol (VISIPAQUE 320 INJ (Rad Spec)) 40 ml STK-MED ONCE I-ARTERIAL Last administered on 10/17/16 16:00; Start 10/17/16 at 16:31; Stop 10/17/16 at 16:32; Status DC Sodium Chloride 1,000 ml @ 100 mls/hr Q10H IV Last administered on 10/18/16 03 :35; Start 10/17/16 at 18:00; Stop 10/18/16 at 07:06; Status DC Potassium Chloride (KCl Powder) 60 meq ONCE ONCE NG Last administered on 08:52; Start 10/18/16 at 09:00; Stop 10/18/16 at 09:01; Status DC Calcium Gluconate 1 gm/Sodium Chloride 110 ml @ 110 mls/hr UNSCH PRN IV For Protein Corrected Calcium Last administered on 10/18/16 10:22; Start 10/18/16 at 09:45; Stop 12/27/16 at 11:31; Status DC Gentamicin Sulfate (Gentamicin Inj) 240 mg STK-MED ONCE IRRIGATION ; Start 10/07 at 12:00; Stop 10/18/16 at 12:13; Status DC Thrombin (Thrombin Top Soln) 5,000 units STK-MED ONCE TOPICAL ; Start 10/07/16 at 12:00; Stop 10/18/16 at 12:13; Status DC Gelatin (Gelfoam 100 Top) 1 foam STK-MED ONCE OTHER ; Start 10/07/16 at 12:00; Stop 10/18/16 at 12:13; Status DC Propofol (Diprivan 200 Mg/20 ml Inj) 200 mg STK-MED ONCE IV ; Start 10/07/16 at 12:00; Stop 10/18/16 at 12:16; Status DC Ephedrine Sulfate (ePHEDrine/NS 25 MG/5 ML SYR) 25 mg STK-MED ONCE IV ; Start at 12:00; Stop 10/18/16 at 12:16; Status DC Phenylephrine HCl (Neosynephrine/ NS 1000 Mcg/10ml Syr) 1,000 mcg STK-MED ONCE IV ; Start 10/07/16 at 12:00; Stop 10/18/16 at 12:16; Status DC Lactated Ringer's 1,000 ml @ As Directed STK-MED ONCE IV ; Start 10/07/16 at 12 :00; Stop 10/18/16 at 12:16; Status DC Milrinone Lactate 20 mg/Sodium Chloride 100 ml @ 12.42 mls/ hr Q8H4M IV Last administered on 10/22/16 09:23; Start 10/18/16 at 16:21; Stop 10/22/16 at 19:37; Status DC Lansoprazole (Prevacid Odt) 30 mg DAILY NG Last administered on 12/16/16 08:54 ; Start 10/20/16 at 09:00; Stop 12/16/16 at 15:01; Status DC Lansoprazole (Prevacid Odt) 30 mg ONCE ONCE NG Last administered on 10/19/16 12:11; Start 10/19/16 at 12:00; Stop 10/19/16 at 12:02; Status DC Sodium Chloride (NS Flush) 2 ml UNSCH PRN IV FLUSH FLUSH AFTER USING IV ACCESS ; Start 10/19/16 at 09:45; Stop 12/27/16 at 11:24; Status DC Sodium Chloride (NS Flush) 2 ml BID IV FLUSH Last administered on 12/26/16 22 :03; Start 10/19/16 at 21:00; Stop 12/27/16 at 11:24; Status DC Artificial Tears (Tears Naturale Opth Soln) 1 drop TID EACH EYE Last administered on 01/16/17 09:03; Start 10/19/16 at 13:00 Ondansetron HCl (Zofran Inj) 4 mg Q6H PRN IV NAUSEA OR VOMITING; Start 10/19/16 at 09:45; Status UNV Albuterol/ Ipratropium (Duoneb Neb) 1 ampule Q6HR NEB INH Last administered on 10/23/16 08:36; Start 10/19/16 at 12:00; Stop 10/23/16 at 11:59; Status DC Albuterol Sulfate (Albuterol Neb) 2.5 mg Q2HR NEB PRN INH SOB/WHEEZING Last administered on 11/22/16 22:09; Start 10/19/16 at 09:45 Miscellaneous Information 1 [id number] XX ; Start 10/19/16 at 09:45; Stop 01/13/17 at 12:47; Status DC Chlorhexidine Gluconate (Chlorhexidine 2% Cloth) Taper DAILY@04 TOP Last administered on 12/24/16 04:00; Start 10/20/16 at 04:00; Stop 01/13/17 at 12:47 ; Status DC Chlorhexidine Gluconate (Chlorhexidine 2% Cloth) 3 pack UNSCH PRN TOP HYGIENIC CARE; Start 10/19/16 at 09:45; Stop 01/13/17 at 12:47; Status DC Docusate Sodium (Colace Liq) 100 mg Q12HR PO Last administered on 10/30/16 07: 55; Start 10/19/16 at 21:00; Stop 10/31/16 at 10:47; Status DC Sennosides (Senna Liq) 8.8 mg BID PO Last administered on 10/29/16 20:15; Start 10/19/16 at 21:00; Stop 10/31/16 at 10:47; Status DC Polyethylene Glycol (Miralax) 17 gm BID OG-TUBE Last administered on 10/29/16 20:15; Start 10/19/16 at 21:00; Stop 10/31/16 at 10:47; Status DC Pharmacy Profile Note 0 ml @ 0 mls/hr UNSCH OTHER ; Start 10/19/16 at 10:15; Stop 10/24/16 at 11:41; Status DC Piperacillin Sod/ Tazobactam Sod 100 ml @ 200 mls/hr Q6H IV Last administered on 10/23/16 05:39; Start 10/19/16 at 12:00; Stop 10/23/16 at 09:43; Status DC Vancomycin HCl 1500 mg/Sodium Chloride 515 ml @ 257.5 mls/ hr Q8H IV Last administered on 10/22/16 04:38; Start 10/19/16 at 13:00; Stop 10/22/16 at 13:55; Status DC Miscellaneous Information SPECIFIC LAB TO BE DRAWN:VANCOMYCIN TROUGH DATE TO... ONCE ONCE .XX Last administered on 10/20/16 12:45; Start 10/20/16 at 12:45; Stop 10/20/16 at 12:46; Status DC Verapamil HCl (Isoptin Inj) 5 mg STK-MED ONCE .ROUTE ; Start 10/19/16 at 12:44; Stop 10/19/16 at 12:45; Status DC Verapamil HCl (Isoptin Inj) 15 mg STK-MED ONCE .ROUTE ; Start 10/19/16 at 12:44; Stop 10/19/16 at 12:45; Status DC Iodixanol (VISIPAQUE 320 INJ (Rad Spec)) 30 ml STK-MED ONCE I-ARTERIAL Last administered on 10/19/16 13:50; Start 10/19/16 at 14:05; Stop 10/19/16 at 14:06; Status DC Lactulose (Lactulose Liq) 30 ml BID OG-TUBE Last administered on 10/31/16 20: 30; Start 10/20/16 at 21:00; Stop 11/01/16 at 07:51; Status DC Mineral Oil (Kondremul Liq) 30 ml ONCE ONCE PO ; Start 10/20/16 at 09:15; Stop 10/20/16 at 09:16; Status Cancel Methylnaltrexone [place] (Relistor Inj) 12 mg ONCE ONCE SQ Last administered on 10/20/16 14:17; Start 10/20/16 at 09:15; Stop 10/20/16 at 09:39; Status DC Insulin Aspart (NovoLOG SUPPLEMENTAL SCALE) 1 Q4HR SQ Last administered on 10/27 11:57; Start 10/20/16 at 12:00; Stop 11/03/16 at 12:42; Status DC Multivitamins 10 ml/Folic Acid 1 mg/Amino Acids/ Electrolytes/ Dextrose 2,010.2 ml @ 30 mls/hr Q24H IV-CENTRAL Last administered on 10/28/16 20:01; Start 10/20/16 at 20:00; Stop 10/31/16 at 10:47; Status DC Fat Emulsion Intravenous 250 ml @ 10 mls/hr Q24H IV-CENTRAL Last administered on 10/29/16 19:58; Start 10/20/16 at 20:00; Stop 10/31/16 at 10:47; Status DC Mineral Oil (Mineral Oil Liq) 30 ml ONCE ONCE PO ; Start 10/20/16 at 14:00; Stop 10/20/16 at 14:01; Status Cancel Mineral Oil (Mineral Oil Liq) 30 ml ONCE ONCE PO Last administered on 15:32; Start 10/20/16 at 14:00; Stop 10/20/16 at 14:01; Status DC Potassium Phosphate 30 mmol/ Sodium Chloride 260 ml @ 43.333 mls/ hr ONCE ONCE IV ; Start 10/20/16 at 18:00; Stop 10/20/16 at 23:59; Status DC Potassium Chloride 100 ml @ 25 mls/hr BOLUS ONCE IV Last administered on 17:17; Start 10/20/16 at 17:00; Stop 10/20/16 at 20:59; Status DC Miscellaneous Information SPECIFIC LAB TO BE LI... ONCE ONCE .XX Last administered on 10/22/16 12:45; Start 10/22/16 at 12:45; Stop 10/22/16 at 12:46; Status DC Diltiazem HCl 125 mg/Sodium Chloride 125 ml @ 5 mls/hr TITRATE PRN IV Tachycardia Last administered on 10/27/16 08:13; Start 10/22/16 at 10:30; Stop 10/28/16 at 18:49; Status DC Hydrocortisone Sodium Succinate (SoluCORTEF INJ) 75 mg Q8H IV PUSH Last administered on 10/24/16 04:05; Start 10/22/16 at 12:00; Stop 10/24/16 at 09:40 ; Status DC Milrinone Lactate 20 mg/Sodium Chloride 100 ml @ 9.79 mls/hr [id number] IV Last administered on 10/30/16 03:35; Start 10/22/16 at 10:23; Stop 11/01/16 at 07:51 ; Status DC Furosemide (Lasix Inj) 40 mg NOW ONCE IV PUSH Last administered on 10/22/16 14 :46; Start 10/22/16 at 14:30; Stop 10/22/16 at 14:31; Status DC Furosemide 100 mg/ Sodium Chloride 100 ml @ 10 mls/hr CONTINUOUS IV Last administered on 10/24/16 01:16; Start 10/22/16 at 15:00; Stop 10/24/16 at 11:17 ; Status DC Vancomycin HCl 1500 mg/Sodium Chloride 515 ml @ 257.5 mls/ hr Q12H IV Last administered on 10/23/16 08:32; Start 10/23/16 at 09:00; Stop 10/23/16 at 09:43 ; Status DC Potassium Chloride 100 ml @ 25 mls/hr Q4H IV Last administered on 10/22/16 18: 05; Start 10/22/16 at 15:00; Stop 10/22/16 at 22:59; Status DC Miscellaneous Information SPECIFIC LAB TO BE LI... ONCE ONCE .XX ; Start 10/25 at 08:45; Stop 10/25/16 at 08:45; Status DC Potassium Chloride 100 ml @ 25 mls/hr Q4H IV Last administered on 10/23/16 19 :46; Start 10/23/16 at 18:30; Stop 10/24/16 at 02:29; Status DC Hydrocortisone Sodium Succinate (SoluCORTEF INJ) 50 mg Q12H IV PUSH Last administered on 10/25/16 04:42; Start 10/24/16 at 16:00; Stop 10/25/16 at 08:37 ; Status DC Insulin Detemir (Levemir Inj) 12 units Q12HR SQ Last administered on 10/28/16 09:23; Start 10/24/16 at 09:45; Stop 10/28/16 at 18:30; Status DC Furosemide 100 mg/ Sodium Chloride 100 ml @ 5 mls/hr CONTINUOUS IV Last administered on 10/27/16 08:12; Start 10/24/16 at 12:00; Stop 10/27/16 at 08:59 ; Status DC Hydrocortisone Sodium Succinate (SoluCORTEF INJ) 25 mg Q12H IV PUSH Last administered on 10/27/16 04:14; Start 10/25/16 at 16:00; Stop 10/27/16 at 08:59 ; Status DC Acetazolamide Sodium (Diamox Inj) 500 mg DAILY IV PUSH Last administered on 08:15; Start 10/25/16 at 09:00; Stop 10/28/16 at 03:25; Status DC Phenytoin Sodium (Dilantin Inj) 100 mg Q8HR IV Last administered on 11/01/16 05:30; Start 10/25/16 at 22:00; Stop 11/01/16 at 07:52; Status DC Furosemide (Lasix Inj) 40 mg DAILY IV PUSH Last administered on 11/09/16 09:11 ; Start 10/28/16 at 09:00; Stop 11/09/16 at 10:18; Status DC Sodium Chloride 1,000 ml @ 30 mls/hr Q24H IV Last administered on 10/28/16 19 :30; Start 10/28/16 at 05:45; Stop 10/29/16 at 11:49; Status DC Dextrose (D50w (Syr) Inj) 50 ml STK-MED ONCE .ROUTE ; Start 10/28/16 at 17:41; Stop 10/28/16 at 17:42; Status DC Insulin Detemir (Levemir Inj) 8 units Q12HR SQ Last administered on 10/29/16 08:28; Start 10/28/16 at 21:00; Stop 11/01/16 at 14:52; Status DC Protein (Beneprotein Powder) 1 pack TID G-TUBE Last administered on 12/14/16 12:08; Start 10/29/16 at 13:00; Stop 12/14/16 at 13:57; Status DC Diltiazem HCl (Cardizem) 60 mg Q6HR PO Last administered on 11/02/16 04:46; Start 10/29/16 at 13:00; Stop 11/02/16 at 07:19; Status DC Levetriacetam (Keppra Liq) 500 mg Q12HR NG Last administered on 12/26/16 22: 02; Start 10/31/16 at 21:00; Stop 12/27/16 at 15:58; Status DC Cisatracurium Besylate (Nimbex Inj) 20 mg ONCE ONCE IV ; Start 11/01/16 at 07: 45; Stop 11/01/16 at 07:55; Status DC Midazolam HCl (Versed Inj) 10 mg ONCE ONCE IV PUSH Last administered on 11:36; Start 11/01/16 at 07:45; Stop 11/01/16 at 07:53; Status DC Fentanyl Citrate (fentaNYL INJ) 250 mcg ONCE ONCE IV PUSH Last administered on 11/01/16 11:37; Start 11/01/16 at 07:45; Stop 11/01/16 at 07:53; Status DC Lactulose (Lactulose Liq) 30 ml QID OG-TUBE Last administered on 11/11/16 12: 28; Start 11/01/16 at 09:00; Stop 11/12/16 at 08:36; Status DC Phenytoin (Dilantin Liq) 100 mg Q8HR PO Last administered on 11/06/16 06:34; Start 11/01/16 at 14:00; Stop 11/06/16 at 12:28; Status DC Cisatracurium Besylate (Nimbex Inj) 20 mg ONCE ONCE IV Last administered on 11:36; Start 11/01/16 at 09:15; Stop 11/01/16 at 09:16; Status DC Oxycodone HCl (Roxicodone Intensol Liq) 10 mg Q4H PRN PO pain 1-6 Last administered on 11/11/16 02:28; Start 11/01/16 at 15:00; Stop 11/24/16 at 11: 19; Status DC Hydromorphone HCl (Dilaudid Pf Inj) 0.5 mg Q4H PRN IV PUSH pain 7-10 or not taking po Last administered on 11/19/16 01:42; Start 11/01/16 at 15:00; Stop 11/29/16 at 12:24; Status DC Haloperidol Lactate (Haldol Inj) 5 mg Q4H PRN IV PUSH agitation; Start at 15:00; Stop 11/29/16 at 14:45; Status DC Melatonin (Melatonin) 5 mg HS PO Last administered on 01/17/17 20:59; Start at 21:00 Diltiazem HCl (Cardizem) 90 mg Q6HR PO Last administered on 01/18/17 06:00; Start 11/02/16 at 12:00 Pharmacy Profile Note 0 ml @ 0 mls/hr UNSCH OTHER ; Start 11/02/16 at 15:30; Stop 11/06/16 at 15:48; Status DC Vancomycin HCl 1250 mg/Sodium Chloride 262.5 ml @ 250 mls/hr Q8H IV Last administered on 11/04/16 02:20; Start 11/02/16 at 18:00; Stop 11/05/16 at 16:14 ; Status DC Cefepime HCl 2000 mg/Sodium Chloride 100 ml @ 200 mls/hr Q8H IV Last administered on 11/06/16 08:42; Start 11/02/16 at 17:00; Stop 11/06/16 at 15:48 ; Status DC Metronidazole 100 ml @ 100 mls/hr Q6H IV Last administered on 11/04/16 09:26 ; Start 11/02/16 at 16:00; Stop 11/04/16 at 11:21; Status DC Miscellaneous Information SPECIFIC LAB TO BE DRAWN:VANCOMYCIN TROUGH DATE TO... ONCE ONCE .XX ; Start 11/03/16 at 17:45; Stop 11/03/16 at 17:46; Status DC Insulin Aspart (NovoLOG SUPPLEMENTAL SCALE) 1 Q12H SQ Last administered on 11/04 00:42; Start 11/03/16 at 12:00; Stop 11/12/16 at 08:40; Status DC Potassium Chloride 100 ml @ 50 mls/hr Q2H IV ; Start 11/03/16 at 15:00; Stop at 16:58; Status DC Miscellaneous Information SPECIFIC LAB TO BE DRAWN:VANCOMYCIN TROUGH DATE TO... ONCE ONCE .XX Last administered on 11/04/16 01:45; Start 11/04/16 at 01:45; Stop 11/04/16 at 01:46; Status DC Sodium Chloride 1,000 ml @ 84 mls/hr [id number] IV Last administered on 13:02; Start 11/04/16 at 11:15; Stop 11/05/16 at 11:14; Status DC Vancomycin HCl 1250 mg/Sodium Chloride 262.5 ml @ 250 mls/hr Q12H IV Last administered on 11/06/16 06:34; Start 11/05/16 at 18:00; Stop 11/06/16 at 15:48 ; Status DC Miscellaneous Information SPECIFIC LAB TO BE LI... ONCE ONCE .XX ; Start 11/07 at 05:45; Stop 11/07/16 at 05:45; Status DC Aztreonam 1000 mg/ Sodium Chloride 100 ml @ 200 mls/hr Q8H IV Last administered on 11/08/16 08:00; Start 11/06/16 at 16:00; Stop 11/08/16 at 12:55 ; Status DC Lactobacillus Acidophilus (Lactinex) 1 tab TID PO Last administered on 12:16; Start 11/06/16 at 18:00; Stop 12/14/16 at 13:57; Status DC Fluconazole (Diflucan) 100 mg DAILY PO Last administered on 11/16/16 09:23; Start 11/06/16 at 16:00; Stop 11/16/16 at 13:20; Status DC Norepinephrine Bitartrate (Levophed Inj) 4 mg STK-MED ONCE .ROUTE ; Start at 02:02; Stop 11/07/16 at 02:03; Status DC Chlorhexidine Gluconate (Hibiclens 4% Top Soln) 1 applic HS TOP Last administered on 11/07/16 23:28; Start 11/07/16 at 21:00; Stop 11/08/16 at 09:58 ; Status DC Prednisone (Deltasone) 20 mg BID PO Last administered on 11/09/16 21:08; Start 11/08/16 at 13:00; Stop 11/09/16 at 21:01; Status DC Levofloxacin (Levaquin) 750 mg DAILY PO Last administered on 11/15/16 08:23; Start 11/08/16 at 13:00; Stop 11/15/16 at 12:59; Status DC Furosemide (Lasix Liq) 20 mg DAILY NG Last administered on 12/01/16 08:38; Start 11/09/16 at 10:30; Stop 12/02/16 at 09:49; Status DC Cefazolin Sodium 1000 mg/Sodium Chloride 100 ml @ 200 mls/hr NOW ONCE IV ; Start 11/12/16 at 15:30; Stop 11/12/16 at 15:59; Status DC Water (Free Water) 200 ml Q6HR G-TUBE Last administered on 11/15/16 18:00; Start 11/14/16 at 18:45; Stop 11/15/16 at 18:50; Status DC Potassium Bicarb/ Potassium Chloride (K-Lyte Cl Eff) 50 meq NOW ONCE PO Last administered on 11/15/16 10:44; Start 11/15/16 at 08:30; Stop 11/15/16 at 08:31 ; Status DC Water (Free Water) 300 ml Q4HR G-TUBE Last administered on 11/20/16 16:00; Start 11/15/16 at 20:00; Stop 11/21/16 at 20:04; Status DC Acetylcysteine (Mucomyst 20% Neb) 2 ml Q6HR NEB NEB Last administered on 04:24; Start 11/16/16 at 10:00; Stop 11/20/16 at 09:59; Status DC Albuterol/ Ipratropium (Duoneb Neb) 1 ampule Q6HR NEB NEB Last administered on 11/20/16 08:04; Start 11/16/16 at 10:00; Stop 11/20/16 at 09:59; Status DC Metoclopramide HCl (Reglan Inj) 10 mg Q8H IV PUSH Last administered on 09:40; Start 11/18/16 at 02:00; Stop 12/02/16 at 09:51; Status DC Ondansetron HCl (Zofran Inj) 4 mg Q6H PRN IV PUSH nausea; Start 11/18/16 at 01: 45; Stop 12/27/16 at 11:33; Status DC Sodium Chloride 1,000 ml @ 999 mls/hr BOLUS ONCE IV Last administered on 11/18 01:58; Start 11/18/16 at 02:00; Stop 11/18/16 at 03:00; Status DC Bacitracin (Baciguent Oint) 1 applic Q12HR TOPICAL Last administered on 20:45; Start 11/18/16 at 11:00 Levofloxacin (Levaquin) 750 mg DAILY PO Last administered on 11/25/16 09:19; Start 11/18/16 at 12:00; Stop 11/25/16 at 11:59; Status DC Sodium Chloride 1,000 ml @ 75 mls/hr [id number] IV Last administered on 01:08; Start 11/18/16 at 13:00; Stop 11/19/16 at 12:59; Status DC Protein (Beneprotein Powder) 1 pack TID G-TUBE Last administered on 01/10/17 18:00; Start 11/19/16 at 09:00; Stop 01/13/17 at 12:47; Status DC Water (Free Water) VOLUME OF WATER: 200 ML Q6HR G-TUBE Last administered on 18:00; Start 11/22/16 at 00:00; Stop 11/26/16 at 18:43; Status DC Albuterol/ Ipratropium (Duoneb Neb) 1 ampule QID NEB NEB Last administered on 11/27/16 11:55; Start 11/23/16 at 16:00; Stop 11/27/16 at 15:59; Status DC Povidone Iodine (Betadine 10% Oint) 1 applic DAILY TOPICAL Last administered on 12/23/16 09:00; Start 11/24/16 at 09:00; Stop 12/24/16 at 12:51; Status DC Oxycodone HCl (Roxicodone Intensol Liq) 10 mg Q4H PRN PO PAIN SCALE 1 TO 6; Start 11/24/16 at 11:30; Stop 11/29/16 at 14:38; Status DC Midazolam HCl (Versed Inj) 5 mg STK-MED ONCE .ROUTE Last administered on 16:24; Start 11/26/16 at 16:24; Stop 11/26/16 at 16:25; Status DC Rocuronium [place] (Zemuron Inj) 100 mg STK-MED ONCE .ROUTE Last administered on 11/26/16 18:19; Start 11/26/16 at 16:24; Stop 11/26/16 at 16:25; Status DC Propofol 50 ml @ As Directed STK-MED ONCE .ROUTE Last administered on 18:29; Start 11/26/16 at 16:53; Stop 11/26/16 at 16:54; Status DC Chlorhexidine Gluconate (Peridex 0.12% Liq) 15 ml BID@08,20 MT Last administered on 01/16/17 08:00; Start 11/26/16 at 20:00 Propofol 100 ml @ 1.668 mls/ hr TITRATE PRN IV SEDATION Last administered on 11/26/16 21:29; Start 11/26/16 at 18:45; Stop 12/12/16 at 16:47; Status DC Fentanyl Citrate (fentaNYL INJ) 100 mcg Q1H PRN IV PUSH any pain; Start at 18:45; Stop 11/29/16 at 14:38; Status DC Fentanyl Citrate 250 ml @ 5 mls/hr TITRATE PRN IV SEDATION Last administered on 11/29/16 06:30; Start 11/26/16 at 18:45; Stop 12/12/16 at 16:47; Status DC Propofol 50 ml @ As Directed STK-MED ONCE .ROUTE Last administered on 18:47; Start 11/26/16 at 18:43; Stop 11/26/16 at 18:44; Status DC Cisatracurium Besylate (Nimbex Inj) 11 mg ONCE ONCE IV PUSH Last administered on 11/26/16 19:30; Start 11/26/16 at 18:45; Stop 11/26/16 at 18:50; Status DC Cisatracurium Besylate 100 mg/ Sodium Chloride 260 ml @ 8.67 mls/hr TITRATE PRN IV TOF 1/4 Last administered on 11/28/16 06:25; Start 11/26/16 at 18:45; Stop 11/28/16 at 10:46; Status DC Epinephrine HCl (EPINEPHrine (1:10,000) INJ) 1 mg STK-MED ONCE .ROUTE ; Start 11/26/16 at 20:06; Stop 11/26/16 at 20:07; Status DC Atropine Sulfate (Atropine Inj) 1 mg STK-MED ONCE .ROUTE ; Start 11/26/16 at 20 :06; Stop 11/26/16 at 20:07; Status DC Lidocaine HCl (Xylocaine 2% Inj) 100 mg STK-MED ONCE .ROUTE ; Start 11/26/16 at 20:07; Stop 11/26/16 at 20:08; Status DC Iohexol (Omnipaque 350 Inj) 95 ml STK-MED ONCE IVCONTRAST Last administered on 11/26/16 20:20; Start 11/26/16 at 20:20; Stop 11/26/16 at 20:21; Status DC Lactated Ringer's 1,000 ml @ 84 mls/hr [id number] IV ; Start 11/26/16 at 23:00; Stop 11/27/16 at 01:37; Status DC Sodium Chloride 500 ml @ 50 mls/hr Q10H IV Last administered on 11/27/16 01: 50; Start 11/27/16 at 01:45; Stop 11/27/16 at 11:44; Status DC Midazolam HCl 100 ml @ 2 mls/hr TITRATE PRN IV SEDATION Last administered on 22:12; Start 11/27/16 at 01:45; Stop 11/29/16 at 14:45; Status DC Midazolam HCl (Versed Inj) 2 mg Q15M PRN IV PUSH SEDATION; Start 11/27/16 at 01:45; Stop 11/29/16 at 14:45; Status DC Lactated Ringer's 1,000 ml @ 84 mls/hr [id number] IV Last administered on 01:17; Start 11/27/16 at 03:15; Stop 12/02/16 at 07:00; Status DC Cisatracurium Besylate 100 mg/ Sodium Chloride 250 ml @ 8.34 mls/hr TITRATE PRN IV TOF 1/4 Last administered on 11/28/16 11:11; Start 11/28/16 at 11:00; Stop 11/28/16 at 14:11; Status DC Sodium Chloride 250 ml @ 15 mls/hr ONCE ONCE IV Last administered on 11:15; Start 11/28/16 at 11:15; Stop 11/29/16 at 03:54; Status DC Epinephrine HCl (EPINEPHrine (1:10,000) INJ) 1 mg STK-MED ONCE .ROUTE ; Start 11/29/16 at 04:20; Stop 11/29/16 at 04:21; Status DC Atropine Sulfate (Atropine Inj) 1 mg STK-MED ONCE .ROUTE ; Start 11/29/16 at 04 :20; Stop 11/29/16 at 04:21; Status DC Lidocaine HCl (Xylocaine 2% Inj) 100 mg STK-MED ONCE .ROUTE ; Start 11/29/16 at 04:20; Stop 11/29/16 at 04:21; Status DC Iohexol (Omnipaque 350 Inj) 70 ml STK-MED ONCE IVCONTRAST Last administered on 11/29/16 05:14; Start 11/29/16 at 05:14; Stop 11/29/16 at 05:15; Status DC Epinephrine HCl (EPINEPHrine (1:10,000) INJ) 1 mg STK-MED ONCE .ROUTE ; Start 11/29/16 at 06:45; Stop 11/29/16 at 06:46; Status DC Epinephrine HCl (EPINEPHrine (1:10,000) INJ) 4 mg STK-MED ONCE .ROUTE ; Start 11/29/16 at 06:48; Stop 11/29/16 at 06:49; Status DC Hydromorphone HCl (Dilaudid Pf Inj) 0.5 mg Q4H PRN IV PUSH pain 7-10 or not taking po; Start 11/29/16 at 12:30; Stop 11/29/16 at 14:38; Status DC Rocuronium [place] (Zemuron Inj) 50 mg STK-MED ONCE .ROUTE Last administered on 11/29/16 12:51; Start 11/29/16 at 12:51; Stop 11/29/16 at 12:52; Status DC Rocuronium [place] (Zemuron Inj) 50 mg STK-MED ONCE .ROUTE Last administered on 11/29/16 13:30; Start 11/29/16 at 13:30; Stop 11/29/16 at 13:31; Status DC Collagenase (Santyl Oint) 1 applic DAILY TOPICAL Last administered on 09:03; Start 11/30/16 at 12:00; Stop 01/17/17 at 08:46; Status DC Albuterol/ Ipratropium (Duoneb Neb) 1 ampule Q6HR NEB NEB Last administered on 12/04/16 09:06; Start 11/30/16 at 16:00; Stop 12/04/16 at 09:12; Status DC Dextrose (D50w (Vial) Inj) 50 ml UNSCH PRN IV PUSH HYPOGLYCEMIA-SEE COMMENTS; Start 11/30/16 at 12:15; Stop 12/02/16 at 19:38; Status DC Glucagon (Glucagon Inj) 1 mg UNSCH PRN OTHER HYPOGLYCEMIA-SEE COMMENTS; Start 11/30/16 at 12:15; Stop 12/02/16 at 19:38; Status DC Insulin Human Regular (NovoLIN R SUPPLEMENTAL SCALE) 1 ACHS SLIDING SCALE SQ ; Start 11/30/16 at 17:00; Stop 12/02/16 at 09:49; Status DC Acetaminophen (Tylenol) 650 mg Q4H PRN PO PAIN OR TEMP >100.4 Last administered on 12/20/16 14:32; Start 11/30/16 at 13:15; Stop 12/27/16 at 11: 35; Status DC Magnesium Sulfate/ Dextrose 100 ml @ 100 mls/hr Q1H IV Last administered on 16:52; Start 12/01/16 at 14:00; Stop 12/01/16 at 15:59; Status DC Potassium Chloride (KCl Powder) 20 meq ONCE ONCE PO ; Start 12/01/16 at 14:00 ; Stop 12/01/16 at 14:01; Status DC Fentanyl Citrate (fentaNYL INJ) 200 mcg STK-MED ONCE .ROUTE Last administered on 12/01/16 15:00; Start 12/01/16 at 14:45; Stop 12/01/16 at 14:46; Status DC Midazolam HCl (Versed Inj) 4 mg STK-MED ONCE .ROUTE Last administered on 15:00; Start 12/01/16 at 14:45; Stop 12/01/16 at 14:46; Status DC Fentanyl Citrate (fentaNYL INJ) 100 mcg STK-MED ONCE .ROUTE Last administered on 12/01/16 15:55; Start 12/01/16 at 15:53; Stop 12/01/16 at 15:54; Status DC Midazolam HCl (Versed Inj) 2 mg STK-MED ONCE .ROUTE Last administered on 16:00; Start 12/01/16 at 15:53; Stop 12/01/16 at 15:54; Status DC Cefazolin Sodium/ Dextrose 50 ml @ As Directed STK-MED ONCE .ROUTE Last administered on 12/01/16 16:00; Start 12/01/16 at 16:03; Stop 12/01/16 at 16 :04; Status DC Iodixanol (VISIPAQUE 320 INJ (Rad Spec)) 65 ml STK-MED ONCE I-ARTERIAL Last administered on 12/01/16 16:15; Start 12/02/16 at 08:47; Stop 12/02/16 at 08 :51; Status DC Potassium Chloride (KCl Powder) 20 meq ONCE ONCE PO ; Start 12/02/16 at 10:00 ; Stop 12/02/16 at 10:02; Status DC Insulin Human Regular (NovoLIN R SUPPLEMENTAL SCALE) 1 Q6HR SQ ; Start at 12:00; Stop 12/02/16 at 19:38; Status DC Magnesium Sulfate/ Dextrose 100 ml @ 100 mls/hr ONCE ONCE IV Last administered on 12/02/16 11:11; Start 12/02/16 at 10:00; Stop 12/02/16 at 10 :59; Status DC Metoclopramide HCl (Reglan Inj) 5 mg Q8H IV PUSH Last administered on 02:28; Start 12/02/16 at 18:00; Stop 12/12/16 at 16:47; Status DC Racepinephrine (Racepinephrine 2.25% Neb) 0.5 ml Q4HR NEB PRN NEB hemoptysis/ stridor; Start 12/03/16 at 15:00; Stop 01/13/17 at 12:47; Status DC Albuterol/ Ipratropium (Duoneb Neb) 1 ampule Q6HR NEB NEB Last administered on 12/08/16 01:13; Start 12/04/16 at 10:00; Stop 12/08/16 at 09:59; Status DC Nitroglycerin (Nitroglycerin 2% Oint) 2 inch Q6H PRN TOPICAL SBP>160, DBP>90; Start 12/04/16 at 09:15 Clonidine (Catapres) 0.1 mg Q8H PO Last administered on 01/10/17 01:22; Start 12/04/16 at 10:00; Stop 01/10/17 at 16:51; Status DC Hydralazine HCl (Apresoline Inj) 10 mg Q1H PRN IV PUSH SBP>160, DBP>90 Last administered on 12/04/16 12:39; Start 12/04/16 at 09:15; Stop 12/16/16 at 15: 01; Status DC Labetalol HCl (Trandate Inj) 10 mg Q1H PRN IV PUSH SBP>160, DBP>90, HR>65; Start 12/04/16 at 09:15; Stop 12/16/16 at 15:01; Status DC Enalaprilat (Vasotec Inj) 1.25 mg Q6H PRN IV PUSH SBP>160, DBP>90; Start 12/04 at 09:15 Sodium Chloride (NS Flush) DAILY IV FLUSH Last administered on 01/09/17 09: 19; Start 12/04/16 at 18:00; Stop 01/13/17 at 12:47; Status DC Sodium Chloride (NS Flush) UNSCH PRN IV FLUSH SEE PROTOCOL; Start 12/04/16 at 18:00; Stop 01/13/17 at 12:47; Status DC Loperamide HCl (Imodium Liq) 2 mg UNSCH PRN PO DIARRHEA; Start 12/14/16 at 10: 45 Lactobacillus Acidophilus (Lactinex) 1 tab TID PO Last administered on 09:04; Start 12/14/16 at 18:00 Famotidine (Pepcid) 20 mg BID PO Last administered on 01/18/17 09:04; Start 12/16/16 at 21:00 Ferrous Sulfate (Ferrous Sulfate) 325 mg BID@12,17 PO Last administered on 01/17 17:10; Start 12/22/16 at 12:00 Ascorbic Acid (Vitamin C) 500 mg BID PO Last administered on 01/18/17 09:04; Start 12/22/16 at 09:00 Chlorhexidine Gluconate (Hibiclens 4% Top Soln) 1 applic HS TOP Last administered on 12/26/16 21:00; Start 12/22/16 at 21:00; Stop 12/26/16 at 21: 01; Status DC Cefazolin Sodium/ Dextrose 50 ml @ 150 mls/hr ONCE ONCE IV Last administered on 12/27/16 08:15; Start 12/27/16 at 06:00; Stop 12/27/16 at 06:19; Status DC Lactated Ringer's 1,000 ml @ 30 mls/hr Q24H PRN IV SEE LABEL COMMENTS; Start 12/26/16 at 15:00; Stop 12/27/16 at 11:25; Status DC Sodium Chloride 500 ml @ 30 mls/hr [id number] PRN IV SEE LABEL COMMENTS; Start at 15:00; Stop 12/27/16 at 11:25; Status DC Metoprolol Tartrate (Lopressor) 25 mg BOLT SORTER PRN PO SEE LABEL COMMENTS; Start 12/26/16 at 15:00; Stop 12/29/16 at 14:59; Status DC Povidone Iodine (Betadine 5% Antisepsis Kit) 1 applic BOLT SORTER PRN EACH NARE SEE LABEL COMMENTS; Start 12/26/16 at 15:00; Stop 12/29/16 at 14:59; Status DC Chlorhexidine Gluconate (Chlorhexidine 2% Cloth) 3 pack BOLT SORTER PRN TOPICAL SEE LABEL COMMENTS; Start 12/26/16 at 15:00; Stop 12/29/16 at 14:59; Status DC Insulin Human Regular (NovoLIN R INJ) See Protocol Table ... BOLT SORTER PRN SQ SEE PROTOCOL TABLE; Start 12/26/16 at 15:00; Stop 12/29/16 at 14:59; Status DC Thrombin (Thrombin Top Soln) 10,000 units STK-MED ONCE .ROUTE Last administered on 12/27/16 10:00; Start 12/27/16 at 07:52; Stop 12/27/16 at 07 :53; Status DC Gelatin (Gelfoam 100 Top) 1 foam STK-MED ONCE .ROUTE Last administered on 12/27 10:00; Start 12/27/16 at 07:53; Stop 12/27/16 at 07:54; Status DC Gentamicin Sulfate (Gentamicin Inj) 240 mg STK-MED ONCE .ROUTE Last administered on 12/27/16 10:00; Start 12/27/16 at 07:53; Stop 12/27/16 at 07 :54; Status DC Lidocaine/ Epinephrine (Xylocaine-Epi 1%-1:100,000 Inj) 20 ml STK-MED ONCE .ROUTE Last administered on 12/27/16 10:00; Start 12/27/16 at 07:54; Stop 12/27/16 at 07:55; Status DC Acetaminophen 100 ml @ As Directed STK-MED ONCE IV ; Start 12/27/16 at 07:57; Stop 12/27/16 at 07:58; Status DC Artificial Tears (Lacrilube Opht Oint) 3.5 applic STK-MED ONCE .ROUTE ; Start 12/27/16 at 07:58; Stop 12/27/16 at 07:59; Status DC Levetriacetam (Keppra Inj) 500 mg STK-MED ONCE IV Last administered on 10:10; Start 12/27/16 at 10:06; Stop 12/27/16 at 10:07; Status DC Potassium Chloride/Sodium Chloride 1,000 ml @ 100 mls/hr Q10H IV Last administered on 01/12/17 10:00; Start 12/27/16 at 11:17; Stop 01/12/17 at 11 :04; Status DC IV Flush (NS Flush) 2 ml UNSCH PRN IVF FLUSH AFTER USING IV ACCESS; Start at 11:30 IV Flush (NS Flush) 2 ml BID IVF Last administered on 01/13/17 08:44; Start 12/27/16 at 21:00; Stop 01/13/17 at 12:47; Status DC Cefazolin Sodium/ Dextrose 50 ml @ 100 mls/hr Q8H IV Last administered on 08:00; Start 12/27/16 at 16:00; Stop 12/28/16 at 08:29; Status DC Levetriacetam 500 mg/Sodium Chloride 105 ml @ 400 mls/hr Q12H IV ; Start 12/27 at 12:00; Status Cancel Bisacodyl (Dulcolax Supp) 10 mg DAILY PRN RECTAL CONSTIPATION; Start 12/27/16 at 11:30 Docusate Sodium (Colace) 100 mg BID PO Last administered on 01/18/17 09:04; Start 12/27/16 at 21:00 Pantoprazole Sodium (Protonix) 40 mg DAILY PO Last administered on 01/13/17 08 :44; Start 12/28/16 at 09:00; Stop 01/13/17 at 12:47; Status DC Pantoprazole Sodium (Protonix Inj) 40 mg DAILY IVP Last administered on 08:44; Start 12/28/16 at 09:00; Stop 01/13/17 at 12:43; Status DC Ondansetron HCl (Zofran Inj) 4 mg Q6H PRN IV PUSH NAUSEA OR VOMITING; Start at 11:30 Calcium Gluconate (Calcium Gluconate Inj) 1 gm UNSCH PRN IV SEE LABEL COMMENTS ; Start 12/27/16 at 11:30; Stop 12/27/16 at 11:31; Status DC Potassium Chloride 100 ml @ 50 mls/hr UNSCH PRN IV POTASSIUM LESS THAN 4; Start 12/27/16 at 11:30; Stop 01/10/17 at 16:51; Status DC Magnesium Sulfate 4 gm/Sodium Chloride 108 ml @ 108 mls/hr UNSCH PRN IV MAGNESIUM LESS THAN 2; Start 12/27/16 at 11:30; Stop 01/10/17 at 16:51; Status DC Acetaminophen/ Hydrocodone Bitart ([place] 10-325 Mg) 1 tab Q4H PRN PO PAIN 1-5 WHEN TOLERATING PO Last administered on 12/30/16 05:54; Start 12/27/16 at 11: 30 Acetaminophen/ Hydrocodone Bitart ([place] 10-325 Mg) 2 tab Q4H PRN PO PAIN 6-10 WHEN TOLERATING PO Last administered on 12/30/16 14:24; Start 12/27/16 at 11: 30 Morphine Sulfate (Morphine Inj) 2 mg Q2H PRN IV PUSH PAIN SCALE 1 TO 6 Last administered on 12/29/16 15:05; Start 12/27/16 at 11:30; Stop 01/13/17 at 12: 43; Status DC Morphine Sulfate (Morphine Inj) 4 mg Q2H PRN IV PUSH PAIN SCALE 7 TO 10 Last administered on 12/28/16 18:00; Start 12/27/16 at 11:30; Stop 01/13/17 at 12: 43; Status DC Acetaminophen (Tylenol) 650 mg Q4H PRN PO TEMPERATURE > 101.5 F; Start at 11:30 Meperidine HCl (*DEMEROL INJ PERIprocedural ONLY) 25 mg STK-MED ONCE .ROUTE Last administered on 12/27/16 11:21; Start 12/27/16 at 11:21; Stop 12/27/16 at 11:22; Status DC Calcium Gluconate 1 gm/Sodium Chloride 110 ml @ 110 mls/hr UNSCH PRN IV SEE LABEL COMMENT; Start 12/27/16 at 12:00; Stop 01/10/17 at 16:51; Status DC Miscellaneous Information ALL NURSING DEPARTME... UNSCH PRN .XX SEE LABEL COMMENTS; Start 12/27/16 at 11:45; Stop 12/28/16 at 11:44; Status DC Levetriacetam 500 mg/Sodium Chloride 105 ml @ 400 mls/hr Q12H IV ; Start 12/27 at 22:00; Status Cancel Levetriacetam (Keppra Liq) 500 mg Q12HR PEG Last administered on 01/13/17 08: 44; Start 12/27/16 at 21:00; Stop 01/13/17 at 12:47; Status DC Iohexol (Omnipaque 350 Inj) 85 ml STK-MED ONCE IVCONTRAST Last administered on 12/28/16 17:46; Start 12/28/16 at 17:46; Stop 12/28/16 at 17:47; Status DC Bacitracin (Bacitracin Oint Packet) 0.9 gm DAILY TOPICAL Last administered on 01/18/17 09:05; Start 12/30/16 at 18:31 Date of Insertion: Dec 04, 2016 Line: Central Venous Catheter Side: Left Location: Internal, Jugular A/P Problem List: (1) Subarachnoid hemorrhage due to ruptured aneurysm ICD Code: I60.8 - Other nontraumatic subarachnoid hemorrhage (2) Subdural hematoma ICD Code: I62.00 - Nontraumatic subdural hemorrhage, unspecified (3) Intracranial aneurysm ICD Code: I67.1 - Cerebral aneurysm, nonruptured (4) Respiratory failure ICD Code: J96.90 - Respiratory failure, unspecified, unspecified whether with hypoxia or hypercapnia Status: Acute Assessment and Plan 1. Subdural Hematoma/duraplasty status post left frontotemporal parietal craniotomy 10/08. 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 Initiated . - 10/13 and 10/14 and 10/17) 10/19 left MCA territory vasospasm, status post successful verapamil treatment by IR with 20 mg verapamil - 10/17 CT brain - less hemisphere edema with herniation through left craniotomy site, improved. - Dr. Perry/neurosurgery. S/p left cranioplasty/bone flap 12/27/16. - Echocardiogram 10/14/16 revealed EF 40-45%. Septal hypokinesis. Moderate MR. Severe pulmonary hypertension with pulmonary artery pressures estimated 61 mmHg Limited Echo 11/06: LVEF 60-65%, Trivial mitral and tricuspid regurgitation, No vegetations noted. - On diltiazem's 90 mg by mouth every 6 hours and furosemide 20 mg daily. Monitor BP and if low hold meds. - neurologically stable and doing well, and continued PT and rehabilitation. - PT, OT, speech following. Patient had helmet. Respiratory failure, S/P tracheostomy. Resolved now satting well on Room air. Monitor O2 sat, O2 supplement to keep O2 sat > 94 - S/p Trach Dr. Sullivan/Dr. Collazo 11/01 #8 [place] - CT angiogram chest/neck revealed right centrilobular bleeding likely source right bronchial artery. Repeat CT chest 11/29no visualization of active bleeding.- Resolved - 12/01 - embolization of right bronchial artery by IR- no further bleeding from tracheostomy - Redo trach 11/[address] Sullivan[address]now trach has been removed. - continue neb treatment. - trach removed Lower extremity edema improved. Ultrasound Doppler reviewed and no DVT. Patient with high risk of bleeding and is not chemoprophylaxis at this time. Continue SCDs and teds for DVT prophylaxis. Ileus- Resolved Elevated transaminases Hyperammonemia protein caloric malnutrition-calorie count performed- director mba recommendations noted; - will hold the tube feeding- will leave the PEG in place and continue to monitor. -director mba following. Right occlusive subclavian, axillary and bilateral superficial cephalic thrombus - limited Echo to evaluate vegetation-neg. 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 Cardizem PO currently and 90 mg every 6 hours (for digital ischemia, Raynaud's) - Continue bacitracin twice a day to affected areas - We'll need to be started on systemic anticoagulation at some point however with recent embolization for hemoptysis holding full anticoagulation at this time. - evaluated by vascular surgery and no interventions recommended at this time. sacral ulcer - ABD dressing with [employer]- staff nurse makes sure to keep area dry. Wound care also consulted. appreciate recommendations. - Turn position every 2 hours - Out of bed to chair activity Course of hospitalization complications Acute hypoxic Respiratory failure secondary to mucous plugging- Resolved Possible healthcare associated pneumonia, Septic Shock- resolved. ARDS - resolved Noncardiogenic/neurogenic pulmonary edema- resolved. Massive Hemoptysis - resolved Aspiration pneumonitis - resolved Cerebral Salt Wasting/SIADH-resolved now hypernatremic - Creatinine currently within normal limits -> resolved. - Monitor urine output Septic and cardiogenic shock- resolved. LV dysfunction secondary to SAH - persistent, now resolved Elevated troponin- secondary to SAH, unlikely to be ACS. - resolved. Pulmonary hypertension s/p PEA arrest 11/28 after ETT dislodgement, hypoxic arrest DVT prop SCD, no chemoprophylaxis secondary to risk for bleeding. Problem Qualifiers (1) Respiratory failure: Qualified Codes: J96.00 - Acute respiratory failure, unspecified whether with hypoxia or hypercapnia Kristina Juárez MD Jan 18, 2017 10:19
[2017-01-18 11:08] VITALS: BP 140/78; PULSE 75; RESP 18; TEMP 98.5; O2SAT 99
[2017-01-18 12:15] VITALS: BP 117/83; PULSE 76; RESP 18; TEMP 98; O2SAT 98
[2017-01-18] MEDS: FERROUS SULFATE 325 MG (65 MG ELEMENTAL IRON) TAB PO SCH ×2 (12:28→17:44)
[2017-01-18 18:59] VITALS: BP 116/73; PULSE 85; RESP 17; TEMP 98.4; O2SAT 97
[2017-01-18] MEDS: MELATONIN 5 MG TAB PO SCH (20:08)
[2017-01-18 20:57] VITALS: BP 120/72; PULSE 83; RESP 18; TEMP 98.1; O2SAT 96
[2017-01-19 00:17] VITALS: BP 133/78; PULSE 74; RESP 18; TEMP 98.5; O2SAT 98
[2017-01-19] MEDS: DILTIAZEM HCL 90 MG TAB PO SCH ×5 (00:22→23:42)
[2017-01-19 04:48] VITALS: BP 127/77; PULSE 73; RESP 18; TEMP 98.3; O2SAT 99
[2017-01-19] MEDS: CHLORHEXIDINE 0.12% (ORAL KIT) 15 ML CUP MT SCH ×2 (08:00→20:00)
[2017-01-19 08:31] VITALS: BP 118/70; PULSE 71; RESP 16; TEMP 98; O2SAT 96
[2017-01-19] MEDS: DOCUSATE SODIUM 100 MG CAP PO SCH ×2 (08:48→20:06)
[2017-01-19] MEDS: LACTOBACILLUS ACIDOPHILUS TAB PO SCH ×3 (08:48→17:04)
[2017-01-19] MEDS: FAMOTIDINE 20 MG TAB PO SCH ×2 (08:48→20:06)
[2017-01-19] MEDS: ASCORBIC ACID 500 MG TAB PO SCH ×2 (08:48→20:06)
[2017-01-19] MEDS: ARTIFICIAL TEARS OPTH SOLN 15 ML BTL EACH EYE SCH ×3 (08:49→17:07)
[2017-01-19] MEDS: BACITRACIN OINT 0.9 GM PKT TOPICAL SCH (09:00)
[2017-01-19] MEDS: BACITRACIN TOP OINT 15 GM TUBE TOPICAL SCH ×2 (09:00→20:08)
--- NOTE | 2017-01-19 10:38 | HHI.PR ---
Subjective Remarks in no distress. looks comfortable. clinically no change. Objective Vitals Vital Signs Date Time Temp Pulse Resp B/P (MAP) Pulse Ox O2 Delivery O2 Flow Rate FiO2 01/19/17 08:31 98.0 71 16 118/70 (86) 96 01/19/17 04:48 98.3 73 18 127/77 (94) 99 01/19/17 00:17 98.5 74 18 133/78 (96) 98 01/18/17 20:57 98.1 83 18 120/72 (88) 96 01/18/17 18:59 98.4 85 17 116/73 (87) 97 01/18/17 12:15 98.0 76 18 117/83 (94) 98 01/18/17 11:08 98.5 75 18 140/78 (98) 99 I/O 01/18/17 01/18/17 01/18/17 01/19/17 01/19/17 01/19/17 06:59 14:59 22:59 06:59 14:59 22:59 Output Total 925 ml 520 ml 850 ml Balance -925 ml -520 ml -850 ml Output Urine Total 925 ml 520 ml 850 ml # Voids 1 # Bowel Movements 1 Imaging Last Impressions Lower Extremity Ultrasound 12/29/16 0000 Signed Impressions: Service Date/Time: December 13:07 - CONCLUSION: No sonographic or Doppler findings of deep venous thrombosis. Joni Shelton MD Carotid Artery Ultrasound 12/27/16 0000 Signed Impressions: Service Date/Time: Tuesday, December 27, 2016 17:19 - CONCLUSION: Mild plaque at the carotid bulb regions bilaterally without a significant stenosis seen. Yosvany Alfaro MD Aorta w/Runoff CTA 12/27/16 0000 Signed Impressions: Service Date/Time: Wednesday, December 28, 2016 17:28 - CONCLUSION: Atherosclerotic calcification seen throughout the arterial system without an area of significant stenosis. The trifurcation vessels are only faintly opacified. Yosvany Alfaro MD Modified Barium Swallow 12/23/16 0000 Signed Impressions: Service Date/Time: Friday, December 23, 2016 09:11 - CONCLUSION: Negative for aspiration.. Remington Woodward MD FACR Chest X-Ray 12/04/16 [id number] Signed Impressions: Service Date/Time: Sunday, December 04, 2016 18:55 - CONCLUSION: 1. Placement of left central line tip in superior vena cava. No pneumothorax. Mild basilar airspace disease. Small right effusion. Gurwinder Root MD Upper Extremity Ultrasound 12/04/16 0000 Signed Impressions: Service Date/Time: Sunday, December 04, 2016 15:37 - CONCLUSION: 1. Positive for occlusive deep venous thrombosis in the right axillary and subclavian vein. Occlusive superficial thrombus in bilateral cephalic veins. Gurwinder Root MD Angiography 12/01/16 0000 Signed Impressions: Service Date/Time: November 14:02 - CONCLUSION: 1. Right side up on her hemorrhage with angiography of the right bronchial artery revealing no source of active hemorrhage. Empiric embolization was performed. Santos Crockett Jr., MD Chest CT 11/28/16 0000 Signed Impressions: Service Date/Time: Tuesday, November 29, 2016 05:13 - CONCLUSION: 1. Patchy alveolar disease characteristic of edema or pneumonia. 2. Severe emphysema 3. Gastrojejunostomy tube looped in the stomach Harvey Morejon MD Chest/Thorax CTA 11/26/16 0000 Signed Impressions: Service Date/Time: Saturday, November 26, 2016 20:18 - CONCLUSION: 1. Extensive filling defects within the right central bronchial tree characteristic of endobronchial hemorrhage. 2. Consolidating airspace disease in the right upper lobe and right lower lobe characteristic of hemorrhage and post obstructive lung consolidation. 3. Right bronchial artery is identified extending to the central right bronchial region 4. Advanced COPD. Nasir Amanda MD Abdomen X-Ray 11/19/16599 Signed Impressions: Service Date/Time: Saturday, November 19, 2016 02:44 - CONCLUSION: Unchanged bowel gas pattern potentially relating to an ileus. Santos Crockett Jr., MD Transcranial Doppler Study Complete 10/20/16599 Signed Impressions: Service Date/Time: October 07:54 - CONCLUSION: Slight interval elevation of flow velocity measurements and ratio on the left Yosvany Polk MD Liver Ultrasound 10/19/16 0000 Signed Impressions: Service Date/Time: Wednesday, October 19, 2016 11:20 - CONCLUSION: 1. Sludge filled gallbladder with thickened wall. 2. Moderate size bilateral pleural effusions and mild upper abdominal ascites. aSntos Vazquez MD Cerebral Arteriogram 10/19/16 0000 Signed Impressions: Service Date/Time: Wednesday, October 19, 2016 12:47 - CONCLUSION: Uncomplicated cerebral arteriography with spasmolytic therapy as described in detail above. Yosvany Polk MD Head CT 10/17/16 0000 Signed Impressions: Service Date/Time: Monday, October 17, 2016 15:06 - CONCLUSION: Ventricles are slightly larger without ventriculostomy. Edema in the left hemisphere the brain herniating through the operative site. Remington Woodward MD FACR Infusion Non-thrombolysis 10/14/16 1103 Signed Impressions: Service Date/Time: Friday, October 14, 2016 10:21 - CONCLUSION: 1. Uncomplicated infusion for spasmolysis Harvey Morejon MD Neck CTA 10/07/16 0000 Signed Impressions: Service Date/Time: Friday, October 07, 2016 15:03 - CONCLUSION: 1. Mild carotid bulb atherosclerotic calcification bilaterally. However, no significant stenosis is present in either internal carotid artery. 2. Paranasal sinus mucoperiosteal thickening. 3. Please refer to brain CTA report for description of the intracranial findings. Yosvany Ramirez MD Head CTA 10/07/16 0000 Signed Impressions: Service Date/Time: Friday, October 07, 2016 15:03 - CONCLUSION: 1. 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 2. Large left subdural hematoma measuring 1.3 cm in depth with a significant, 1.6 cm left to right subfalcine shift. Joni Shelton MD Objective Remarks GENERAL: This is a well-nourished, well-developed patient, in no apparent distress. CARDIOVASCULAR: Regular rate and regular rhythm without murmurs, gallops, or rubs. RESPIRATORY: Clear to auscultation. Breath sounds equal bilaterally. No wheezes , rales, or rhonchi. GASTROINTESTINAL: Abdomen soft, non-tender, nondistended. Normal, active bowel sounds MUSCULOSKELETAL: Extremities without clubbing, cyanosis, or edema. NEURO: awake and alert. Procedures 10/13 Four-vessel cerebral angiography with verapamil treatment of vasospasm Status post left frontotemporal parietal craniectomy 10/08 for evacuation subdural hematoma/duraplasty. 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 parietal cranioplasty with replacement of skull flap by Dr Perry neurosurgery on 12/27/16 Medications and IVs Current Medications Iohexol (Omnipaque 350 Inj) 100 ml STK-MED ONCE IVCONTRAST Last administered on 10/07/16 14:21; Start 10/07/16 at 14:21; Stop 10/07/16 at 15:21; Status DC Mannitol 50 ml @ As Directed STK-MED ONCE .ROUTE ; Start 10/07/16 at 15:25; Stop 10/07/16 at 15:26; Status DC Propofol 0 ml @ As Directed STK-MED ONCE .ROUTE ; Start 10/07/16 at 15:25; Stop 10/07/16 at 15:26; Status DC Levetriacetam (Keppra Inj) 1,000 mg STK-MED ONCE IV Last administered on 18:30; Start 10/07/16 at 15:27; Stop 10/07/16 at 15:28; Status DC Mannitol (Mannitol Inj) 50 gm ONCE ONCE IV Last administered on 10/13/16 21: 00; Start 10/07/16 at 15:30; Stop 10/07/16 at 15:31; Status DC Nicardipine HCl 25 mg/Sodium Chloride 260 ml @ 52 mls/hr Q5H PRN IV Blood pressure management; Start 10/07/16 at 15:40; Stop 10/14/16 at 21:02; Status DC Propofol 100 ml @ 0 mls/hr Q0M PRN IV Ordered RASS Last administered on 23:01; Start 10/07/16 at 15:40; Stop 10/07/16 at 23:16; Status DC Sodium Chloride 1,000 ml @ 75 mls/hr [id number] IV ; Start 10/07/16 at 16:08; Stop 10/07/16 at 18:34; Status DC Sodium Chloride (NS Flush) 2 ml UNSCH PRN IV FLUSH FLUSH AFTER USING IV ACCESS ; Start 10/07/16 at 16:15; Stop 10/07/16 at 18:40; Status DC Sodium Chloride (NS Flush) 2 ml BID IV FLUSH ; Start 10/07/16 at 21:00; Stop at 21:00; Status DC Acetaminophen (Tylenol) 650 mg Q6H PRN PO PAIN 1-10 AND/OR FEVER >101F; Start 10/07/16 at 16:15; Stop 10/07/16 at 19:04; Status DC Albuterol/ Ipratropium (Duoneb Neb) 1 ampule Q6HR NEB NEB Last administered on 10/11/16 15:16; Start 10/07/16 at 22:00; Stop 10/11/16 at 21:59; Status DC Albuterol/ Ipratropium (Duoneb Neb) 1 ampule Q4HR NEB PRN INH SHORTNESS OF BREATH Last administered on 10/14/16 19:33; Start 10/07/16 at 16:15; Stop at 09:43; Status DC Chlorhexidine Gluconate (Peridex 0.12% Liq) 15 ml BID@08,20 MT Last administered on 11/28/16 08:00; Start 10/07/16 at 20:00; Stop 11/28/16 at 11: 18; Status DC Pantoprazole Sodium (Protonix Inj) 40 mg DAILY IV ; Start 10/08/16 at 09:00; Stop 10/08/16 at 09:00; Status DC Miscellaneous Information 1 [id number] ; Start 10/07/16 at 16:15; Stop 10/19/16 at 12:07; Status DC Chlorhexidine Gluconate (Chlorhexidine 2% Cloth) Taper DAILY@04 TOP Last administered on 10/19/16 03:13; Start 10/08/16 at 04:00; Stop 10/19/16 at 12:07; Status DC Chlorhexidine Gluconate (Chlorhexidine 2% Cloth) 3 pack UNSCH PRN TOP HYGIENIC CARE; Start 10/07/16 at 16:15; Stop 10/19/16 at 12:07; Status DC Insulin Aspart (NovoLOG SUPPLEMENTAL SCALE) 1 Q6HR SQ Last administered on 06:40; Start 10/07/16 at 18:00; Stop 10/20/16 at 09:23; Status DC Propofol 100 ml @ 0 mls/hr Q0M PRN IV SEDATION; Start 10/07/16 at 16:08; Status UNV Nimodipine (Nimotop) 60 mg Q4HR OG-TUBE Last administered on 10/12/16 15:18; Start 10/07/16 at 20:00; Stop 10/12/16 at 23:47; Status DC Verapamil HCl (Isoptin Inj) 10 mg STK-MED ONCE .ROUTE ; Start 10/07/16 at 16:45 ; Stop 10/07/16 at 16:46; Status DC Nitroglycerin (Nitroglycerin 2% Oint) 1 inch STK-MED ONCE .ROUTE ; Start at 16:55; Stop 10/07/16 at 16:56; Status DC Heparin Sodium (Porcine) (Heparin Inj) 10,000 units STK-MED ONCE .ROUTE ; Start 10/07/16 at 16:56; Stop 10/07/16 at 16:57; Status DC Potassium Chloride/Sodium Chloride 1,000 ml @ 100 mls/hr Q10H IV Last administered on 10/14/16 07:08; Start 10/07/16 at 18:20; Stop 10/14/16 at 21:02; Status DC IV Flush (NS Flush) 2 ml UNSCH PRN IVF FLUSH AFTER USING IV ACCESS; Start 10/07 at 18:30; Stop 10/19/16 at 12:09; Status DC IV Flush (NS Flush) 2 ml BID IVF Last administered on 10/19/16 09:00; Start at 21:00; Stop 10/19/16 at 12:09; Status DC Cefazolin Sodium/ Dextrose 50 ml @ 100 mls/hr Q8H IV Last administered on 10/08 10:30; Start 10/07/16 at 19:00; Stop 10/08/16 at 11:29; Status DC Levetriacetam 500 mg/Sodium Chloride 105 ml @ 400 mls/hr Q12H IV Last administered on 10/31/16 05:11; Start 10/08/16 at 06:00; Stop 10/31/16 at 10:47 ; Status DC Bisacodyl (Dulcolax Supp) 10 mg DAILY PRN RECTAL CONSTIPATION; Start 10/07/16 at 18:30; Stop 10/31/16 at 10:47; Status DC Docusate Sodium (Colace) 100 mg BID PO Last administered on 10/19/16 09:00; Start 10/07/16 at 21:00; Stop 10/19/16 at 12:15; Status DC Pantoprazole Sodium (Protonix) 40 mg DAILY PO Last administered on 10/14/16 07: 47; Start 10/08/16 at 09:00; Stop 10/19/16 at 09:46; Status DC Pantoprazole Sodium (Protonix Inj) 40 mg DAILY IVP Last administered on 07:45; Start 10/08/16 at 09:00; Stop 10/12/16 at 14:30; Status DC Ondansetron HCl (Zofran Inj) 4 mg Q6H PRN IV NAUSEA OR VOMITING Last administered on 11/13/16 20:31; Start 10/07/16 at 18:30; Stop 12/08/16 at 13: 55; Status DC Calcium Gluconate (Calcium Gluconate Inj) 1 gm UNSCH PRN IV SEE LABEL COMMENTS Last administered on 10/16/16 10:00; Start 10/07/16 at 18:30; Stop 11/17/16 at 14:34; Status DC Potassium Chloride 100 ml @ 50 mls/hr UNSCH PRN IV POTASSIUM LESS THAN 4 Last administered on 12/02/16 08:13; Start 10/07/16 at 18:30; Stop 12/16/16 at 15: 01; Status DC Magnesium Sulfate 4 gm/Sodium Chloride 108 ml @ 108 mls/hr UNSCH PRN IV MAGNESIUM LESS THAN 2; Start 10/07/16 at 18:30; Stop 12/27/16 at 11:35; Status DC Acetaminophen/ Hydrocodone Bitart ([place] 10-325 Mg) 1 tab Q4H PRN PO PAIN SCALE 1 TO 5 Last administered on 10/13/16 13:07; Start 10/07/16 at 18:30; Stop 10/15/16 at 08:05; Status DC Acetaminophen/ Hydrocodone Bitart ([place] 10-325 Mg) 2 tab Q4H PRN PO PAIN SCALE 6 TO 10 Last administered on 10/09/16 10:20; Start 10/07/16 at 18:30; Stop 10/15/16 at 08:05; Status DC Morphine Sulfate (Morphine Inj) 2 mg Q2H PRN IV PUSH PAIN SCALE 1 TO 6 Last administered on 10/10/16 17:52; Start 10/07/16 at 18:30; Stop 10/15/16 at 08:05 ; Status DC Morphine Sulfate (Morphine Inj) 4 mg Q2H PRN IV PUSH PAIN SCALE 7 TO 10 Last administered on 10/08/16 01:55; Start 10/07/16 at 18:30; Stop 10/15/16 at 08:05 ; Status DC Acetaminophen (Tylenol) 650 mg Q4H PRN PO TEMP >100.4 Last administered on 11/14 03:07; Start 10/07/16 at 18:30; Stop 11/30/16 at 13:12; Status DC Iodixanol (VISIPAQUE 320 INJ (Rad Spec)) 65 ml STK-MED ONCE I-ARTERIAL Last administered on 10/07/16 18:38; Start 10/07/16 at 18:38; Stop 10/07/16 at 18:39 ; Status DC Dextrose (D50w (Vial) Inj) 50 ml UNSCH PRN IV PUSH HYPOGLYCEMIA - SEE COMMENTS Last administered on 11/01/16 09:22; Start 10/07/16 at 19:15; Stop 11/12/16 at 08:41; Status DC Glucagon (Glucagon Inj) 1 mg UNSCH PRN OTHER HYPOGLYCEMIA-SEE COMMENTS; Start 10/07/16 at 19:15; Stop 11/12/16 at 08:42; Status DC Midazolam HCl (Versed Inj) 4 mg STK-MED ONCE .ROUTE ; Start 10/07/16 at 19:51; Stop 10/07/16 at 19:52; Status DC Fentanyl Citrate (fentaNYL INJ) 250 mcg STK-MED ONCE .ROUTE ; Start 10/07/16 at 20:32; Stop 10/07/16 at 20:33; Status DC Propofol 100 ml @ 0 mls/hr TITRATE PRN IV Sedation Last administered on 05:31; Start 10/07/16 at 23:15; Stop 11/01/16 at 14:52; Status DC Epinephrine HCl (EPINEPHrine (1:10,000) INJ) 1 mg STK-MED ONCE .ROUTE ; Start at 04:09; Stop 10/09/16 at 04:10; Status DC Atropine Sulfate (Atropine Inj) 1 mg STK-MED ONCE .ROUTE ; Start 10/09/16 at 04: 09; Stop 10/09/16 at 04:10; Status DC Lidocaine HCl (Xylocaine 2% Inj) 100 mg STK-MED ONCE .ROUTE ; Start 10/09/16 at 04:09; Stop 10/09/16 at 04:10; Status DC Nimodipine (Nimotop) 60 mg Q4HR PO Last administered on 11/02/16 20:23; Start 10/13/16 at 00:00; Stop 11/02/16 at 23:59; Status DC Verapamil HCl (Isoptin Inj) 20 mg STK-MED ONCE .ROUTE Last administered on 10/13 17:10; Start 10/13/16 at 17:10; Stop 10/13/16 at 17:11; Status DC Iodixanol (VISIPAQUE 320 INJ (Rad Spec)) 45 ml STK-MED ONCE I-ARTERIAL Last administered on 10/13/16 17:40; Start 10/13/16 at 17:49; Stop 10/13/16 at 17:50 ; Status DC Midazolam HCl (Versed Inj) 2 mg STK-MED ONCE .ROUTE ; Start 10/13/16 at 18:32; Stop 10/13/16 at 18:33; Status DC Fentanyl Citrate (fentaNYL INJ) 200 mcg STK-MED ONCE .ROUTE ; Start 10/13/16 at 18:32; Stop 10/13/16 at 18:33; Status DC Sodium Chloride 2,000 ml @ 0 mls/hr Q0M IV Last administered on 10/14/16 20:20 ; Start 10/13/16 at 21:45; Stop 10/14/16 at 23:59; Status DC Phenylephrine HCl (Neosynephrine Inj) 10 mg STK-MED ONCE .ROUTE Last administered on 10/14/16 09:10; Start 10/14/16 at 09:10; Stop 10/14/16 at 09:11; Status DC Verapamil HCl (Isoptin Inj) 20 mg STK-MED ONCE .ROUTE Last administered on 10:19; Start 10/14/16 at 10:19; Stop 10/14/16 at 10:20; Status DC Fentanyl Citrate (fentaNYL INJ) 100 mcg STK-MED ONCE .ROUTE Last administered on 10/14/16 10:32; Start 10/14/16 at 10:32; Stop 10/14/16 at 10:33; Status DC Midazolam HCl (Versed Inj) 2 mg STK-MED ONCE .ROUTE Last administered on 10:32; Start 10/14/16 at 10:32; Stop 10/14/16 at 10:33; Status DC Midazolam HCl (Versed Inj) 2 mg STK-MED ONCE .ROUTE ; Start 10/14/16 at 10:32; Stop 10/14/16 at 10:33; Status DC Vasopressin 40 units/Dextrose 100 ml @ 4.5 mls/hr [id number] IV Last administered on 10/25/16 02:30; Start 10/14/16 at 11:30; Stop 10/31/16 at 10:47 ; Status DC Albumin Human (Albumin 5% Inj) 25 gm ONCE ONCE IV Last administered on 11:34; Start 10/14/16 at 11:15; Stop 10/14/16 at 11:17; Status DC Iodixanol (VISIPAQUE 320 INJ (Rad Spec)) 10 ml STK-MED ONCE I-ARTERIAL Last administered on 10/14/16 11:06; Start 10/14/16 at 11:06; Stop 10/14/16 at 11:07; Status DC Fludrocortisone Acetate (Florinef) 0.1 mg BID PO Last administered on 10/15/16 11:39; Start 10/14/16 at 11:45; Stop 10/15/16 at 13:17; Status DC Phenylephrine HCl (Neosynephrine Inj) 10 mg STK-MED ONCE .ROUTE Last administered on 10/14/16 12:18; Start 10/14/16 at 12:18; Stop 10/14/16 at 12:19; Status DC Norepinephrine Bitartrate 250 ml @ As Directed STK-MED ONCE IV ; Start 10/14/16 at 13:14; Stop 10/14/16 at 13:15; Status DC Norepinephrine Bitartrate (Levophed Inj) 4 mg STK-MED ONCE .ROUTE Last administered on 10/14/16 13:15; Start 10/14/16 at 13:15; Stop 10/14/16 at 13:16; Status DC Etomidate (Amidate Inj) 20 mg STK-MED ONCE .ROUTE Last administered on 14:18; Start 10/14/16 at 13:44; Stop 10/14/16 at 13:45; Status DC Midazolam HCl (Versed Inj) 5 mg STK-MED ONCE .ROUTE Last administered on 14:18; Start 10/14/16 at 13:44; Stop 10/14/16 at 13:45; Status DC Rocuronium [place] (Zemuron Inj) 50 mg STK-MED ONCE .ROUTE Last administered on 10/14/16 14:17; Start 10/14/16 at 13:45; Stop 10/14/16 at 13:46; Status DC Fentanyl Citrate 250 ml @ 5 mls/hr TITRATE PRN IV SEDATION Last administered on 10/30/16 17:39; Start 10/14/16 at 15:00; Stop 11/01/16 at 14:52; Status DC Phenylephrine HCl (Neosynephrine Inj) 10 mg STK-MED ONCE .ROUTE Last administered on 10/14/16 14:26; Start 10/14/16 at 14:26; Stop 10/14/16 at 14:27; Status DC Norepinephrine Bitartrate 4 mg/ Sodium Chloride 250 ml @ 7.5 mls/hr TITRATE PRN IV Blood pressure management Last administered on 10/15/16 15:05; Start 10/14 at 14:45; Stop 10/15/16 at 14:54; Status DC Terbutaline Sulfate (Brethine Inj) 1 mg UNSCH PRN SQ For Extravasation; Start 10/14/16 at 14:45; Stop 10/19/16 at 12:10; Status DC Rocuronium [place] (Zemuron Inj) 50 mg STK-MED ONCE .ROUTE Last administered on 10/14/16 14:43; Start 10/14/16 at 14:43; Stop 10/14/16 at 14:44; Status DC Midazolam HCl 100 ml @ 2 mls/hr TITRATE PRN IV SEDATION Last administered on 22:54; Start 10/14/16 at 15:00; Stop 10/25/16 at 08:47; Status DC Phenylephrine HCl (Neosynephrine Inj) 10 mg STK-MED ONCE .ROUTE ; Start 10/14/16 at 18:03; Stop 10/14/16 at 18:04; Status DC Phenylephrine HCl 40 mg/Dextrose 500 ml @ 30 mls/hr TITRATE PRN IV Blood pressure management Last administered on 10/15/16 15:02; Start 10/14/16 at 18:30 ; Stop 10/15/16 at 15:36; Status DC Terbutaline Sulfate (Brethine Inj) 1 mg UNSCH PRN SQ For Extravasation; Start 10/14/16 at 18:15; Stop 10/15/16 at 08:05; Status DC Heparin Sodium (Porcine) (Heparin Inj) 5,000 units Q8HR SQ Last administered on 11/13/16 21:20; Start 10/14/16 at 22:00; Status Future Hold Isoproterenol HCl 2 mg/Dextrose 260 ml @ 23.4 mls/hr TITRATE PRN IV Hypotension Last administered on 10/14/16 21:26; Start 10/14/16 at 21:00; Stop at 16:24; Status DC Sodium Chloride 1,000 ml @ 50 mls/hr Q20H IV Last administered on 10/15/16 09: 54; Start 10/14/16 at 21:15; Stop 10/16/16 at 09:17; Status DC Phenylephrine HCl (Neosynephrine Inj) 40 mg STK-MED ONCE .ROUTE ; Start 10/14/16 at 23:30; Stop 10/14/16 at 23:31; Status DC Phenylephrine HCl (Neosynephrine Inj) 10 mg STK-MED ONCE .ROUTE ; Start 10/14/16 at 23:31; Stop 10/14/16 at 23:32; Status DC Epinephrine HCl 2 mg/Dextrose 252 ml @ 22.68 mls/ hr TITRATE PRN IV Blood Pressure Management Last administered on 10/15/16 15:03; Start 10/15/16 at 02:00 ; Stop 10/15/16 at 14:54; Status DC Epinephrine HCl (Adrenalin (1:1000) Inj) 2 mg STK-MED ONCE .ROUTE ; Start at 01:59; Stop 10/15/16 at 02:00; Status DC Lorazepam (Ativan Inj) 2 mg STK-MED ONCE .ROUTE ; Start 10/15/16 at 02:13; Stop 10/15/16 at 02:14; Status DC Epoprostenol Sodium 75 ml/ Sodium Chloride 100 ml @ 8 mls/hr Q8H NEB Last administered on 10/21/16 15:25; Start 10/15/16 at 03:00; Stop 10/21/16 at 16:05; Status DC Lorazepam (Ativan Inj) 2 mg ONCE ONCE IV PUSH Last administered on 10/15/16 03 :33; Start 10/15/16 at 02:30; Stop 10/15/16 at 02:37; Status DC Fosphenytoin Sodium 1000 mgpe/ Sodium Chloride 70 ml @ 280 mls/hr ONCE ONCE IV Last administered on 10/15/16 03:32; Start 10/15/16 at 02:30; Stop 10/15/16 at 02:44; Status DC Fosphenytoin Sodium (Cerebyx Inj) 100 mgpe Q8HR IV Last administered on 06:28; Start 10/15/16 at 10:00; Stop 10/25/16 at 14:25; Status DC Calcium Chloride 1 gm/Sodium Chloride 110 ml @ 110 mls/hr ONCE ONCE IV Last administered on 10/15/16 03:52; Start 10/15/16 at 03:15; Stop 10/15/16 at 04:14; Status DC Pharmacy Profile Note 0 ml @ 0 mls/hr UNSCH OTHER ; Start 10/15/16 at 03:30; Stop 10/18/16 at 07:20; Status DC Cefepime HCl 2000 mg/Sodium Chloride 100 ml @ 200 mls/hr Q8H IV Last administered on 10/18/16 03:34; Start 10/15/16 at 04:00; Stop 10/18/16 at 07:20; Status DC Azithromycin 500 mg/Sodium Chloride 250 ml @ 250 mls/hr Q24H IV Last administered on 10/18/16 03:34; Start 10/15/16 at 04:00; Stop 10/18/16 at 07:20; Status DC Albuterol/ Ipratropium (Duoneb Neb) 1 ampule Q4HR WHILE AWAKE NEB NEB Last administered on 10/18/16 20:21; Start 10/15/16 at 08:00; Stop 10/19/16 at 07:59; Status DC Vancomycin HCl 1000 mg/Sodium Chloride 250 ml @ 250 mls/hr ONCE ONCE IV Last administered on 10/15/16 07:02; Start 10/15/16 at 05:00; Stop 10/15/16 at 05:59; Status DC Hydrocortisone Sodium Succinate (SoluCORTEF INJ) 100 mg Q8H IV PUSH Last administered on 10/22/16 04:34; Start 10/15/16 at 04:00; Stop 10/22/16 at 10:29; Status DC Phenylephrine HCl (Neosynephrine Inj) 20 mg STK-MED ONCE .ROUTE ; Start 10/15/16 at 04:35; Stop 10/15/16 at 04:36; Status DC Sodium Chloride 500 ml @ 30 mls/hr CONTINUOUS IV Last administered on 11:43; Start 10/15/16 at 08:00; Stop 10/22/16 at 10:29; Status DC Calcium Gluconate 2 gm/Sodium Chloride 120 ml @ 120 mls/hr ONCE ONCE IV Last administered on 10/15/16 09:26; Start 10/15/16 at 09:00; Stop 10/15/16 at 09:59; Status DC Albumin Human (Albumin 5% Inj) 12.5 gm STK-MED ONCE IV Last administered on 10/15 09:17; Start 10/15/16 at 09:17; Stop 10/15/16 at 09:18; Status DC Rocuronium [place] (Zemuron Inj) 50 mg STK-MED ONCE .ROUTE Last administered on 10/15/16 09:50; Start 10/15/16 at 09:50; Stop 10/15/16 at 09:51; Status DC Vancomycin HCl 1250 mg/Sodium Chloride 262.5 ml @ 262.5 mls/ hr Q12H IV Last administered on 10/17/16 05:57; Start 10/15/16 at 18:00; Stop 10/17/16 at 09:41; Status DC Miscellaneous Information SPECIFIC LAB TO BE LI... ONCE ONCE .XX Last administered on 10/17/16 05:45; Start 10/17/16 at 05:45; Stop 10/17/16 at 05:46; Status DC Cisatracurium Besylate 100 mg/ Sodium Chloride 260 ml @ 11.24 mls/ hr TITRATE PRN IV TOF / Last administered on 10/21/16 12:59; Start 10/15/16 at 13:00; Stop 10/31/16 at 10:47; Status DC Sodium Chloride 240 meq/Syringe / Bag 60 ml @ 120 mls/hr ONCE ONCE IV Last administered on 10/15/16 13:25; Start 10/15/16 at 13:15; Stop 10/15/16 at 13:44; Status DC Sodium Chloride (Sodium Chloride) 3 gm TID PO Last administered on 11/04/16 10 :18; Start 10/15/16 at 13:15; Stop 11/04/16 at 11:21; Status DC Fludrocortisone Acetate (Florinef) 0.2 mg BID PO Last administered on 10/16/16 08:12; Start 10/15/16 at 21:00; Stop 10/16/16 at 09:12; Status DC Epinephrine HCl 2 mg/Dextrose 252 ml @ 22.68 mls/ hr TITRATE PRN IV Blood Pressure Management; Start 10/15/16 at 15:00; Stop 10/15/16 at 15:32; Status DC Norepinephrine Bitartrate 4 mg/ Sodium Chloride 250 ml @ 7.5 mls/hr TITRATE PRN IV Blood pressure management; Start 10/15/16 at 15:00; Stop 10/15/16 at 15:56 ; Status DC Sodium Chloride 240 meq/Syringe / Bag 60 ml @ 120 mls/hr ONCE ONCE IV Last administered on 10/15/16 15:33; Start 10/15/16 at 15:30; Stop 10/15/16 at 15:59; Status DC Epinephrine HCl 8 mg/Dextrose 250 ml @ 5.62 mls/hr TITRATE PRN IV Blood Pressure Management Last administered on 10/17/16 08:30; Start 10/15/16 at 15:30 ; Stop 10/17/16 at 10:08; Status DC Phenylephrine HCl 160 mg/Dextrose 500 ml @ 7.5 mls/hr TITRATE PRN IV Blood Pressure Management Last administered on 10/18/16 09:34; Start 10/15/16 at 15:45 ; Stop 10/17/16 at 10:08; Status DC Terbutaline Sulfate (Brethine Inj) 1 mg UNSCH PRN SQ FOR EXTRAVASATION PROTOCOL ; Start 10/15/16 at 15:45; Stop 11/01/16 at 07:51; Status DC Norepinephrine Bitartrate 16 mg/ Sodium Chloride 250 ml @ 1.87 mls/hr TITRATE PRN IV Blood pressure management Last administered on 10/17/16 09:11; Start 10/15 at 16:00; Stop 10/17/16 at 10:08; Status DC Calcium Gluconate 3 gm/Sodium Chloride 130 ml @ 120 mls/hr ONCE ONCE IV Last administered on 10/16/16 09:48; Start 10/16/16 at 10:00; Stop 10/16/16 at 11:04; Status DC Sodium Chloride 240 meq/Syringe / Bag 60 ml @ 120 mls/hr ONCE ONCE IV Last administered on 10/16/16 09:48; Start 10/16/16 at 10:00; Stop 10/16/16 at 10:29; Status DC Magnesium Oxide (Mag-Ox) 800 mg UNSCH PRN PO For Magnesium 1.2 - 1.6 mg/dL; Start 10/16/16 at 09:15; Stop 11/25/16 at 09:51; Status DC Magnesium Sulfate 4 gm/Sodium Chloride 100 ml @ 50 mls/hr UNSCH PRN IV For Magnesium 0.9 - 1.1 mg/dL; Start 10/16/16 at 09:15; Stop 11/25/16 at 09:51; Status DC Magnesium Sulfate 2 gm/Sodium Chloride 100 ml @ 50 mls/hr UNSCH PRN IV For Magnesium 1.2 - 1.6 mg/dL; Start 10/16/16 at 09:15; Stop 11/25/16 at 09:51; Status DC Potassium Chloride 100 ml @ 50 mls/hr Q2H PRN IV For Potassium 2.8 - 3.2 mEq/ L Last administered on 11/15/16 12:36; Start 10/16/16 at 09:15; Stop 11/25/16 at 09:51; Status DC Potassium Chloride 100 ml @ 50 mls/hr Q2H PRN IV For Potassium 3.3 - 3.5 mEq/L ; Start 10/16/16 at 09:15; Stop 11/25/16 at 09:51; Status DC Potassium Chloride 100 ml @ 50 mls/hr Q2H PRN IV For Potassium 2.8 - 3.2 mEq/ L Last administered on 10/27/16 13:26; Start 10/16/16 at 09:15; Stop 11/25/16 at 09:51; Status DC Potassium Chloride 100 ml @ 25 mls/hr UNSCH PRN IV For Potassium 3.3 - 3.5 mEq /L Last administered on 10/30/16 06:06; Start 10/16/16 at 09:15; Stop 11/25/16 at 09:51; Status DC Potassium Phosphate (K-Phos) 2,000 mg Q4H PRN PO For Phosphorus < 2.5 mg/dL; Start 10/16/16 at 09:15; Stop 11/25/16 at 09:51; Status DC Potassium Phosphate (K-Phos) 2,000 mg UNSCH PRN PO/TUBE SEE LABEL COMMENTS; Start 10/16/16 at 09:15; Stop 11/25/16 at 09:51; Status DC Potassium Phosphate 30 mmol/ Sodium Chloride 260 ml @ 42 mls/hr UNSCH PRN IV SEE LABEL COMMENTS Last administered on 10/24/16 20:39; Start 10/16/16 at 09:15 ; Stop 11/25/16 at 09:51; Status DC Sodium Phosphate 30 mmol/Sodium Chloride 250 ml @ 42 mls/hr UNSCH PRN IV For Phosphorus < 2.5 mg/dL Last administered on 10/22/16 06:46; Start 10/16/16 at 09: 15; Stop 11/25/16 at 09:51; Status DC Furosemide (Lasix Inj) 40 mg STK-MED ONCE .ROUTE Last administered on 10/16/16 13:27; Start 10/16/16 at 13:27; Stop 10/16/16 at 13:28; Status DC Vancomycin HCl 1250 mg/Sodium Chloride 262.5 ml @ 250 mls/hr Q8H IV Last administered on 10/18/16 06:10; Start 10/17/16 at 14:00; Stop 10/18/16 at 07:20; Status DC Miscellaneous Information SPECIFIC LAB TO BE ... ONCE ONCE .XX Last administered on 10/18/16 05:45; Start 10/18/16 at 05:45; Stop 10/18/16 at 05:46; Status DC Sodium Chloride 1,000 ml @ 999 mls/hr BOLUS ONCE IV Last administered on 10:45; Start 10/17/16 at 11:00; Stop 10/17/16 at 12:00; Status DC Epinephrine HCl 8 mg/Dextrose 250 ml @ 5.62 mls/hr TITRATE PRN IV Blood Pressure Management; Start 10/17/16 at 10:15; Status Cancel Norepinephrine Bitartrate 16 mg/ Sodium Chloride 250 ml @ 1.87 mls/hr TITRATE PRN IV Blood pressure management Last administered on 10/20/16 01:07; Start 10/17 at 10:15; Stop 10/31/16 at 10:47; Status DC Phenylephrine HCl 160 mg/Dextrose 500 ml @ 7.5 mls/hr TITRATE PRN IV Blood Pressure Management Last administered on 10/23/16 14:21; Start 10/17/16 at 10:15 ; Stop 10/29/16 at 11:49; Status DC Epinephrine HCl 8 mg/Dextrose 250 ml @ 5.62 mls/hr TITRATE PRN IV Blood Pressure Management Last administered on 10/20/16 15:14; Start 10/17/16 at 11:15 ; Stop 10/29/16 at 11:49; Status DC Heparin Sodium (Porcine) (*HEPARIN INJ Periprocedural ONLY) 10,000 units STK- MED ONCE .ROUTE Last administered on 10/17/16 14:54; Start 10/17/16 at 14:54; Stop 10/17/16 at 14:55; Status DC Verapamil HCl (Isoptin Inj) 20 mg STK-MED ONCE .ROUTE Last administered on 15:34; Start 10/17/16 at 15:34; Stop 10/17/16 at 15:35; Status DC Iodixanol (VISIPAQUE 320 INJ (Rad Spec)) 40 ml STK-MED ONCE I-ARTERIAL Last administered on 10/17/16 16:00; Start 10/17/16 at 16:31; Stop 10/17/16 at 16:32; Status DC Sodium Chloride 1,000 ml @ 100 mls/hr Q10H IV Last administered on 10/18/16 03 :35; Start 10/17/16 at 18:00; Stop 10/18/16 at 07:06; Status DC Potassium Chloride (KCl Powder) 60 meq ONCE ONCE NG Last administered on 08:52; Start 10/18/16 at 09:00; Stop 10/18/16 at 09:01; Status DC Calcium Gluconate 1 gm/Sodium Chloride 110 ml @ 110 mls/hr UNSCH PRN IV For Protein Corrected Calcium Last administered on 10/18/16 10:22; Start 10/18/16 at 09:45; Stop 12/27/16 at 11:31; Status DC Gentamicin Sulfate (Gentamicin Inj) 240 mg STK-MED ONCE IRRIGATION ; Start 10/07 at 12:00; Stop 10/18/16 at 12:13; Status DC Thrombin (Thrombin Top Soln) 5,000 units STK-MED ONCE TOPICAL ; Start 10/07/16 at 12:00; Stop 10/18/16 at 12:13; Status DC Gelatin (Gelfoam 100 Top) 1 foam STK-MED ONCE OTHER ; Start 10/07/16 at 12:00; Stop 10/18/16 at 12:13; Status DC Propofol (Diprivan 200 Mg/20 ml Inj) 200 mg STK-MED ONCE IV ; Start 10/07/16 at 12:00; Stop 10/18/16 at 12:16; Status DC Ephedrine Sulfate (ePHEDrine/NS 25 MG/5 ML SYR) 25 mg STK-MED ONCE IV ; Start at 12:00; Stop 10/18/16 at 12:16; Status DC Phenylephrine HCl (Neosynephrine/ NS 1000 Mcg/10ml Syr) 1,000 mcg STK-MED ONCE IV ; Start 10/07/16 at 12:00; Stop 10/18/16 at 12:16; Status DC Lactated Ringer's 1,000 ml @ As Directed STK-MED ONCE IV ; Start 10/07/16 at 12 :00; Stop 10/18/16 at 12:16; Status DC Milrinone Lactate 20 mg/Sodium Chloride 100 ml @ 12.42 mls/ hr Q8H4M IV Last administered on 10/22/16 09:23; Start 10/18/16 at 16:21; Stop 10/22/16 at 19:37; Status DC Lansoprazole (Prevacid Odt) 30 mg DAILY NG Last administered on 12/16/16 08:54 ; Start 10/20/16 at 09:00; Stop 12/16/16 at 15:01; Status DC Lansoprazole (Prevacid Odt) 30 mg ONCE ONCE NG Last administered on 10/19/16 12:11; Start 10/19/16 at 12:00; Stop 10/19/16 at 12:02; Status DC Sodium Chloride (NS Flush) 2 ml UNSCH PRN IV FLUSH FLUSH AFTER USING IV ACCESS ; Start 10/19/16 at 09:45; Stop 12/27/16 at 11:24; Status DC Sodium Chloride (NS Flush) 2 ml BID IV FLUSH Last administered on 12/26/16 22 :03; Start 10/19/16 at 21:00; Stop 12/27/16 at 11:24; Status DC Artificial Tears (Tears Naturale Opth Soln) 1 drop TID EACH EYE Last administered on 01/19/17 08:49; Start 10/19/16 at 13:00 Ondansetron HCl (Zofran Inj) 4 mg Q6H PRN IV NAUSEA OR VOMITING; Start 10/19/16 at 09:45; Status UNV Albuterol/ Ipratropium (Duoneb Neb) 1 ampule Q6HR NEB INH Last administered on 10/23/16 08:36; Start 10/19/16 at 12:00; Stop 10/23/16 at 11:59; Status DC Albuterol Sulfate (Albuterol Neb) 2.5 mg Q2HR NEB PRN INH SOB/WHEEZING Last administered on 11/22/16 22:09; Start 10/19/16 at 09:45 Miscellaneous Information 1 [id number] ; Start 10/19/16 at 09:45; Stop 01/13/17 at 12:47; Status DC Chlorhexidine Gluconate (Chlorhexidine 2% Cloth) Taper DAILY@04 TOP Last administered on 12/24/16 04:00; Start 10/20/16 at 04:00; Stop 01/13/17 at 12:47 ; Status DC Chlorhexidine Gluconate (Chlorhexidine 2% Cloth) 3 pack UNSCH PRN TOP HYGIENIC CARE; Start 10/19/16 at 09:45; Stop 01/13/17 at 12:47; Status DC Docusate Sodium (Colace Liq) 100 mg Q12HR PO Last administered on 10/30/16 07: 55; Start 10/19/16 at 21:00; Stop 10/31/16 at 10:47; Status DC Sennosides (Senna Liq) 8.8 mg BID PO Last administered on 10/29/16 20:15; Start 10/19/16 at 21:00; Stop 10/31/16 at 10:47; Status DC Polyethylene Glycol (Miralax) 17 gm BID OG-TUBE Last administered on 10/29/16 20:15; Start 10/19/16 at 21:00; Stop 10/31/16 at 10:47; Status DC Pharmacy Profile Note 0 ml @ 0 mls/hr UNSCH OTHER ; Start 10/19/16 at 10:15; Stop 10/24/16 at 11:41; Status DC Piperacillin Sod/ Tazobactam Sod 100 ml @ 200 mls/hr Q6H IV Last administered on 10/23/16 05:39; Start 10/19/16 at 12:00; Stop 10/23/16 at 09:43; Status DC Vancomycin HCl 1500 mg/Sodium Chloride 515 ml @ 257.5 mls/ hr Q8H IV Last administered on 10/22/16 04:38; Start 10/19/16 at 13:00; Stop 10/22/16 at 13:55; Status DC Miscellaneous Information SPECIFIC LAB TO BE DRAWN:VANCOMYCIN TROUGH DATE TO... ONCE ONCE .XX Last administered on 10/20/16 12:45; Start 10/20/16 at 12:45; Stop 10/20/16 at 12:46; Status DC Verapamil HCl (Isoptin Inj) 5 mg STK-MED ONCE .ROUTE ; Start 10/19/16 at 12:44; Stop 10/19/16 at 12:45; Status DC Verapamil HCl (Isoptin Inj) 15 mg STK-MED ONCE .ROUTE ; Start 10/19/16 at 12:44; Stop 10/19/16 at 12:45; Status DC Iodixanol (VISIPAQUE 320 INJ (Rad Spec)) 30 ml STK-MED ONCE I-ARTERIAL Last administered on 10/19/16 13:50; Start 10/19/16 at 14:05; Stop 10/19/16 at 14:06; Status DC Lactulose (Lactulose Liq) 30 ml BID OG-TUBE Last administered on 10/31/16 20: 30; Start 10/20/16 at 21:00; Stop 11/01/16 at 07:51; Status DC Mineral Oil (Kondremul Liq) 30 ml ONCE ONCE PO ; Start 10/20/16 at 09:15; Stop 10/20/16 at 09:16; Status Cancel Methylnaltrexone [place] (Relistor Inj) 12 mg ONCE ONCE SQ Last administered on 10/20/16 14:17; Start 10/20/16 at 09:15; Stop 10/20/16 at 09:39; Status DC Insulin Aspart (NovoLOG SUPPLEMENTAL SCALE) 1 Q4HR SQ Last administered on 10/27 11:57; Start 10/20/16 at 12:00; Stop 11/03/16 at 12:42; Status DC Multivitamins 10 ml/Folic Acid 1 mg/Amino Acids/ Electrolytes/ Dextrose 2,010.2 ml @ 30 mls/hr Q24H IV-CENTRAL Last administered on 10/28/16 20:01; Start 10/20/16 at 20:00; Stop 10/31/16 at 10:47; Status DC Fat Emulsion Intravenous 250 ml @ 10 mls/hr Q24H IV-CENTRAL Last administered on 10/29/16 19:58; Start 10/20/16 at 20:00; Stop 10/31/16 at 10:47; Status DC Mineral Oil (Mineral Oil Liq) 30 ml ONCE ONCE PO ; Start 10/20/16 at 14:00; Stop 10/20/16 at 14:01; Status Cancel Mineral Oil (Mineral Oil Liq) 30 ml ONCE ONCE PO Last administered on 15:32; Start 10/20/16 at 14:00; Stop 10/20/16 at 14:01; Status DC Potassium Phosphate 30 mmol/ Sodium Chloride 260 ml @ 43.333 mls/ hr ONCE ONCE IV ; Start 10/20/16 at 18:00; Stop 10/20/16 at 23:59; Status DC Potassium Chloride 100 ml @ 25 mls/hr BOLUS ONCE IV Last administered on 17:17; Start 10/20/16 at 17:00; Stop 10/20/16 at 20:59; Status DC Miscellaneous Information SPECIFIC LAB TO BE LI... ONCE ONCE .XX Last administered on 10/22/16 12:45; Start 10/22/16 at 12:45; Stop 10/22/16 at 12:46; Status DC Diltiazem HCl 125 mg/Sodium Chloride 125 ml @ 5 mls/hr TITRATE PRN IV Tachycardia Last administered on 10/27/16 08:13; Start 10/22/16 at 10:30; Stop 10/28/16 at 18:49; Status DC Hydrocortisone Sodium Succinate (SoluCORTEF INJ) 75 mg Q8H IV PUSH Last administered on 10/24/16 04:05; Start 10/22/16 at 12:00; Stop 10/24/16 at 09:40 ; Status DC Milrinone Lactate 20 mg/Sodium Chloride 100 ml @ 9.79 mls/hr [id number] IV Last administered on 10/30/16 03:35; Start 10/22/16 at 10:23; Stop 11/01/16 at 07:51 ; Status DC Furosemide (Lasix Inj) 40 mg NOW ONCE IV PUSH Last administered on 10/22/16 14 :46; Start 10/22/16 at 14:30; Stop 10/22/16 at 14:31; Status DC Furosemide 100 mg/ Sodium Chloride 100 ml @ 10 mls/hr CONTINUOUS IV Last administered on 10/24/16 01:16; Start 10/22/16 at 15:00; Stop 10/24/16 at 11:17 ; Status DC Vancomycin HCl 1500 mg/Sodium Chloride 515 ml @ 257.5 mls/ hr Q12H IV Last administered on 10/23/16 08:32; Start 10/23/16 at 09:00; Stop 10/23/16 at 09:43 ; Status DC Potassium Chloride 100 ml @ 25 mls/hr Q4H IV Last administered on 10/22/16 18: 05; Start 10/22/16 at 15:00; Stop 10/22/16 at 22:59; Status DC Miscellaneous Information SPECIFIC LAB TO BE LI... ONCE ONCE .XX ; Start 10/25 at 08:45; Stop 10/25/16 at 08:45; Status DC Potassium Chloride 100 ml @ 25 mls/hr Q4H IV Last administered on 10/23/16 19 :46; Start 10/23/16 at 18:30; Stop 10/24/16 at 02:29; Status DC Hydrocortisone Sodium Succinate (SoluCORTEF INJ) 50 mg Q12H IV PUSH Last administered on 10/25/16 04:42; Start 10/24/16 at 16:00; Stop 10/25/16 at 08:37 ; Status DC Insulin Detemir (Levemir Inj) 12 units Q12HR SQ Last administered on 10/28/16 09:23; Start 10/24/16 at 09:45; Stop 10/28/16 at 18:30; Status DC Furosemide 100 mg/ Sodium Chloride 100 ml @ 5 mls/hr CONTINUOUS IV Last administered on 10/27/16 08:12; Start 10/24/16 at 12:00; Stop 10/27/16 at 08:59 ; Status DC Hydrocortisone Sodium Succinate (SoluCORTEF INJ) 25 mg Q12H IV PUSH Last administered on 10/27/16 04:14; Start 10/25/16 at 16:00; Stop 10/27/16 at 08:59 ; Status DC Acetazolamide Sodium (Diamox Inj) 500 mg DAILY IV PUSH Last administered on 08:15; Start 10/25/16 at 09:00; Stop 10/28/16 at 03:25; Status DC Phenytoin Sodium (Dilantin Inj) 100 mg Q8HR IV Last administered on 11/01/16 05:30; Start 10/25/16 at 22:00; Stop 11/01/16 at 07:52; Status DC Furosemide (Lasix Inj) 40 mg DAILY IV PUSH Last administered on 11/09/16 09:11 ; Start 10/28/16 at 09:00; Stop 11/09/16 at 10:18; Status DC Sodium Chloride 1,000 ml @ 30 mls/hr Q24H IV Last administered on 10/28/16 19 :30; Start 10/28/16 at 05:45; Stop 10/29/16 at 11:49; Status DC Dextrose (D50w (Syr) Inj) 50 ml STK-MED ONCE .ROUTE ; Start 10/28/16 at 17:41; Stop 10/28/16 at 17:42; Status DC Insulin Detemir (Levemir Inj) 8 units Q12HR SQ Last administered on 10/29/16 08:28; Start 10/28/16 at 21:00; Stop 11/01/16 at 14:52; Status DC Protein (Beneprotein Powder) 1 pack TID G-TUBE Last administered on 12/14/16 12:08; Start 10/29/16 at 13:00; Stop 12/14/16 at 13:57; Status DC Diltiazem HCl (Cardizem) 60 mg Q6HR PO Last administered on 11/02/16 04:46; Start 10/29/16 at 13:00; Stop 11/02/16 at 07:19; Status DC Levetriacetam (Keppra Liq) 500 mg Q12HR NG Last administered on 12/26/16 22: 02; Start 10/31/16 at 21:00; Stop 12/27/16 at 15:58; Status DC Cisatracurium Besylate (Nimbex Inj) 20 mg ONCE ONCE IV ; Start 11/01/16 at 07: 45; Stop 11/01/16 at 07:55; Status DC Midazolam HCl (Versed Inj) 10 mg ONCE ONCE IV PUSH Last administered on 11:36; Start 11/01/16 at 07:45; Stop 11/01/16 at 07:53; Status DC Fentanyl Citrate (fentaNYL INJ) 250 mcg ONCE ONCE IV PUSH Last administered on 11/01/16 11:37; Start 11/01/16 at 07:45; Stop 11/01/16 at 07:53; Status DC Lactulose (Lactulose Liq) 30 ml QID OG-TUBE Last administered on 11/11/16 12: 28; Start 11/01/16 at 09:00; Stop 11/12/16 at 08:36; Status DC Phenytoin (Dilantin Liq) 100 mg Q8HR PO Last administered on 11/06/16 06:34; Start 11/01/16 at 14:00; Stop 11/06/16 at 12:28; Status DC Cisatracurium Besylate (Nimbex Inj) 20 mg ONCE ONCE IV Last administered on 11:36; Start 11/01/16 at 09:15; Stop 11/01/16 at 09:16; Status DC Oxycodone HCl (Roxicodone Intensol Liq) 10 mg Q4H PRN PO pain 1-6 Last administered on 11/11/16 02:28; Start 11/01/16 at 15:00; Stop 11/24/16 at 11: 19; Status DC Hydromorphone HCl (Dilaudid Pf Inj) 0.5 mg Q4H PRN IV PUSH pain 7-10 or not taking po Last administered on 11/19/16 01:42; Start 11/01/16 at 15:00; Stop 11/29/16 at 12:24; Status DC Haloperidol Lactate (Haldol Inj) 5 mg Q4H PRN IV PUSH agitation; Start at 15:00; Stop 11/29/16 at 14:45; Status DC Melatonin (Melatonin) 5 mg HS PO Last administered on 01/18/17 20:08; Start at 21:00 Diltiazem HCl (Cardizem) 90 mg Q6HR PO Last administered on 01/19/17 05:42; Start 11/02/16 at 12:00 Pharmacy Profile Note 0 ml @ 0 mls/hr UNSCH OTHER ; Start 11/02/16 at 15:30; Stop 11/06/16 at 15:48; Status DC Vancomycin HCl 1250 mg/Sodium Chloride 262.5 ml @ 250 mls/hr Q8H IV Last administered on 11/04/16 02:20; Start 11/02/16 at 18:00; Stop 11/05/16 at 16:14 ; Status DC Cefepime HCl 2000 mg/Sodium Chloride 100 ml @ 200 mls/hr Q8H IV Last administered on 11/06/16 08:42; Start 11/02/16 at 17:00; Stop 11/06/16 at 15:48 ; Status DC Metronidazole 100 ml @ 100 mls/hr Q6H IV Last administered on 11/04/16 09:26 ; Start 11/02/16 at 16:00; Stop 11/04/16 at 11:21; Status DC Miscellaneous Information SPECIFIC LAB TO BE DRAWN:VANCOMYCIN TROUGH DATE TO... ONCE ONCE .XX ; Start 11/03/16 at 17:45; Stop 11/03/16 at 17:46; Status DC Insulin Aspart (NovoLOG SUPPLEMENTAL SCALE) 1 Q12H SQ Last administered on 11/04 00:42; Start 11/03/16 at 12:00; Stop 11/12/16 at 08:40; Status DC Potassium Chloride 100 ml @ 50 mls/hr Q2H IV ; Start 11/03/16 at 15:00; Stop at 16:58; Status DC Miscellaneous Information SPECIFIC LAB TO BE DRAWN:VANCOMYCIN TROUGH DATE TO... ONCE ONCE .XX Last administered on 11/04/16 01:45; Start 11/04/16 at 01:45; Stop 11/04/16 at 01:46; Status DC Sodium Chloride 1,000 ml @ 84 mls/hr [id number] IV Last administered on 13:02; Start 11/04/16 at 11:15; Stop 11/05/16 at 11:14; Status DC Vancomycin HCl 1250 mg/Sodium Chloride 262.5 ml @ 250 mls/hr Q12H IV Last administered on 11/06/16 06:34; Start 11/05/16 at 18:00; Stop 11/06/16 at 15:48 ; Status DC Miscellaneous Information SPECIFIC LAB TO BE LI... ONCE ONCE .XX ; Start 11/07 at 05:45; Stop 11/07/16 at 05:45; Status DC Aztreonam 1000 mg/ Sodium Chloride 100 ml @ 200 mls/hr Q8H IV Last administered on 11/08/16 08:00; Start 11/06/16 at 16:00; Stop 11/08/16 at 12:55 ; Status DC Lactobacillus Acidophilus (Lactinex) 1 tab TID PO Last administered on 12:16; Start 11/06/16 at 18:00; Stop 12/14/16 at 13:57; Status DC Fluconazole (Diflucan) 100 mg DAILY PO Last administered on 11/16/16 09:23; Start 11/06/16 at 16:00; Stop 11/16/16 at 13:20; Status DC Norepinephrine Bitartrate (Levophed Inj) 4 mg STK-MED ONCE .ROUTE ; Start at 02:02; Stop 11/07/16 at 02:03; Status DC Chlorhexidine Gluconate (Hibiclens 4% Top Soln) 1 applic HS TOP Last administered on 11/07/16 23:28; Start 11/07/16 at 21:00; Stop 11/08/16 at 09:58 ; Status DC Prednisone (Deltasone) 20 mg BID PO Last administered on 11/09/16 21:08; Start 11/08/16 at 13:00; Stop 11/09/16 at 21:01; Status DC Levofloxacin (Levaquin) 750 mg DAILY PO Last administered on 11/15/16 08:23; Start 11/08/16 at 13:00; Stop 11/15/16 at 12:59; Status DC Furosemide (Lasix Liq) 20 mg DAILY NG Last administered on 12/01/16 08:38; Start 11/09/16 at 10:30; Stop 12/02/16 at 09:49; Status DC Cefazolin Sodium 1000 mg/Sodium Chloride 100 ml @ 200 mls/hr NOW ONCE IV ; Start 11/12/16 at 15:30; Stop 11/12/16 at 15:59; Status DC Water (Free Water) 200 ml Q6HR G-TUBE Last administered on 11/15/16 18:00; Start 11/14/16 at 18:45; Stop 11/15/16 at 18:50; Status DC Potassium Bicarb/ Potassium Chloride (K-Lyte Cl Eff) 50 meq NOW ONCE PO Last administered on 11/15/16 10:44; Start 11/15/16 at 08:30; Stop 11/15/16 at 08:31 ; Status DC Water (Free Water) 300 ml Q4HR G-TUBE Last administered on 11/20/16 16:00; Start 11/15/16 at 20:00; Stop 11/21/16 at 20:04; Status DC Acetylcysteine (Mucomyst 20% Neb) 2 ml Q6HR NEB NEB Last administered on 04:24; Start 11/16/16 at 10:00; Stop 11/20/16 at 09:59; Status DC Albuterol/ Ipratropium (Duoneb Neb) 1 ampule Q6HR NEB NEB Last administered on 11/20/16 08:04; Start 11/16/16 at 10:00; Stop 11/20/16 at 09:59; Status DC Metoclopramide HCl (Reglan Inj) 10 mg Q8H IV PUSH Last administered on 09:40; Start 11/18/16 at 02:00; Stop 12/02/16 at 09:51; Status DC Ondansetron HCl (Zofran Inj) 4 mg Q6H PRN IV PUSH nausea; Start 11/18/16 at 01: 45; Stop 12/27/16 at 11:33; Status DC Sodium Chloride 1,000 ml @ 999 mls/hr BOLUS ONCE IV Last administered on 11/18 01:58; Start 11/18/16 at 02:00; Stop 11/18/16 at 03:00; Status DC Bacitracin (Baciguent Oint) 1 applic Q12HR TOPICAL Last administered on 21:00; Start 11/18/16 at 11:00 Levofloxacin (Levaquin) 750 mg DAILY PO Last administered on 11/25/16 09:19; Start 11/18/16 at 12:00; Stop 11/25/16 at 11:59; Status DC Sodium Chloride 1,000 ml @ 75 mls/hr [id number] IV Last administered on 01:08; Start 11/18/16 at 13:00; Stop 11/19/16 at 12:59; Status DC Protein (Beneprotein Powder) 1 pack TID G-TUBE Last administered on 01/10/17 18:00; Start 11/19/16 at 09:00; Stop 01/13/17 at 12:47; Status DC Water (Free Water) VOLUME OF WATER: 200 ML Q6HR G-TUBE Last administered on 18:00; Start 11/22/16 at 00:00; Stop 11/26/16 at 18:43; Status DC Albuterol/ Ipratropium (Duoneb Neb) 1 ampule QID NEB NEB Last administered on 11/27/16 11:55; Start 11/23/16 at 16:00; Stop 11/27/16 at 15:59; Status DC Povidone Iodine (Betadine 10% Oint) 1 applic DAILY TOPICAL Last administered on 12/23/16 09:00; Start 11/24/16 at 09:00; Stop 12/24/16 at 12:51; Status DC Oxycodone HCl (Roxicodone Intensol Liq) 10 mg Q4H PRN PO PAIN SCALE 1 TO 6; Start 11/24/16 at 11:30; Stop 11/29/16 at 14:38; Status DC Midazolam HCl (Versed Inj) 5 mg STK-MED ONCE .ROUTE Last administered on 16:24; Start 11/26/16 at 16:24; Stop 11/26/16 at 16:25; Status DC Rocuronium [place] (Zemuron Inj) 100 mg STK-MED ONCE .ROUTE Last administered on 11/26/16 18:19; Start 11/26/16 at 16:24; Stop 11/26/16 at 16:25; Status DC Propofol 50 ml @ As Directed STK-MED ONCE .ROUTE Last administered on 18:29; Start 11/26/16 at 16:53; Stop 11/26/16 at 16:54; Status DC Chlorhexidine Gluconate (Peridex 0.12% Liq) 15 ml BID@08,20 MT Last administered on 01/19/17 08:00; Start 11/26/16 at 20:00 Propofol 100 ml @ 1.668 mls/ hr TITRATE PRN IV SEDATION Last administered on 11/26/16 21:29; Start 11/26/16 at 18:45; Stop 12/12/16 at 16:47; Status DC Fentanyl Citrate (fentaNYL INJ) 100 mcg Q1H PRN IV PUSH any pain; Start at 18:45; Stop 11/29/16 at 14:38; Status DC Fentanyl Citrate 250 ml @ 5 mls/hr TITRATE PRN IV SEDATION Last administered on 11/29/16 06:30; Start 11/26/16 at 18:45; Stop 12/12/16 at 16:47; Status DC Propofol 50 ml @ As Directed STK-MED ONCE .ROUTE Last administered on 18:47; Start 11/26/16 at 18:43; Stop 11/26/16 at 18:44; Status DC Cisatracurium Besylate (Nimbex Inj) 11 mg ONCE ONCE IV PUSH Last administered on 11/26/16 19:30; Start 11/26/16 at 18:45; Stop 11/26/16 at 18:50; Status DC Cisatracurium Besylate 100 mg/ Sodium Chloride 260 ml @ 8.67 mls/hr TITRATE PRN IV TOF 1/4 Last administered on 11/28/16 06:25; Start 11/26/16 at 18:45; Stop 11/28/16 at 10:46; Status DC Epinephrine HCl (EPINEPHrine (1:10,000) INJ) 1 mg STK-MED ONCE .ROUTE ; Start 11/26/16 at 20:06; Stop 11/26/16 at 20:07; Status DC Atropine Sulfate (Atropine Inj) 1 mg STK-MED ONCE .ROUTE ; Start 11/26/16 at 20 :06; Stop 11/26/16 at 20:07; Status DC Lidocaine HCl (Xylocaine 2% Inj) 100 mg STK-MED ONCE .ROUTE ; Start 11/26/16 at 20:07; Stop 11/26/16 at 20:08; Status DC Iohexol (Omnipaque 350 Inj) 95 ml STK-MED ONCE IVCONTRAST Last administered on 11/26/16 20:20; Start 11/26/16 at 20:20; Stop 11/26/16 at 20:21; Status DC Lactated Ringer's 1,000 ml @ 84 mls/hr [id number] IV ; Start 11/26/16 at 23:00; Stop 11/27/16 at 01:37; Status DC Sodium Chloride 500 ml @ 50 mls/hr Q10H IV Last administered on 11/27/16 01: 50; Start 11/27/16 at 01:45; Stop 11/27/16 at 11:44; Status DC Midazolam HCl 100 ml @ 2 mls/hr TITRATE PRN IV SEDATION Last administered on 22:12; Start 11/27/16 at 01:45; Stop 11/29/16 at 14:45; Status DC Midazolam HCl (Versed Inj) 2 mg Q15M PRN IV PUSH SEDATION; Start 11/27/16 at 01:45; Stop 11/29/16 at 14:45; Status DC Lactated Ringer's 1,000 ml @ 84 mls/hr [id number] IV Last administered on 01:17; Start 11/27/16 at 03:15; Stop 12/02/16 at 07:00; Status DC Cisatracurium Besylate 100 mg/ Sodium Chloride 250 ml @ 8.34 mls/hr TITRATE PRN IV TOF 1/4 Last administered on 11/28/16 11:11; Start 11/28/16 at 11:00; Stop 11/28/16 at 14:11; Status DC Sodium Chloride 250 ml @ 15 mls/hr ONCE ONCE IV Last administered on 11:15; Start 11/28/16 at 11:15; Stop 11/29/16 at 03:54; Status DC Epinephrine HCl (EPINEPHrine (1:10,000) INJ) 1 mg STK-MED ONCE .ROUTE ; Start 11/29/16 at 04:20; Stop 11/29/16 at 04:21; Status DC Atropine Sulfate (Atropine Inj) 1 mg STK-MED ONCE .ROUTE ; Start 11/29/16 at 04 :20; Stop 11/29/16 at 04:21; Status DC Lidocaine HCl (Xylocaine 2% Inj) 100 mg STK-MED ONCE .ROUTE ; Start 11/29/16 at 04:20; Stop 11/29/16 at 04:21; Status DC Iohexol (Omnipaque 350 Inj) 70 ml STK-MED ONCE IVCONTRAST Last administered on 11/29/16t 05:14; Start 11/29/16 at 05:14; Stop 11/29/16 at 05:15; Status DC Epinephrine HCl (EPINEPHrine (1:10,000) INJ) 1 mg STK-MED ONCE .ROUTE ; Start 11/29/16 at 06:45; Stop 11/29/16 at 06:46; Status DC Epinephrine HCl (EPINEPHrine (1:10,000) INJ) 4 mg STK-MED ONCE .ROUTE ; Start 11/29/16 at 06:48; Stop 11/29/16 at 06:49; Status DC Hydromorphone HCl (Dilaudid Pf Inj) 0.5 mg Q4H PRN IV PUSH pain 7-10 or not taking po; Start 11/29/16 at 12:30; Stop 11/29/16 at 14:38; Status DC Rocuronium [place] (Zemuron Inj) 50 mg STK-MED ONCE .ROUTE Last administered on 11/29/16 12:51; Start 11/29/16 at 12:51; Stop 11/29/16 at 12:52; Status DC Rocuronium [place] (Zemuron Inj) 50 mg STK-MED ONCE .ROUTE Last administered on 11/29/16 13:30; Start 11/29/16 at 13:30; Stop 11/29/16 at 13:31; Status DC Collagenase (Santyl Oint) 1 applic DAILY TOPICAL Last administered on 09:03; Start 11/30/16 at 12:00; Stop 01/17/17 at 08:46; Status DC Albuterol/ Ipratropium (Duoneb Neb) 1 ampule Q6HR NEB NEB Last administered on 12/04/16 09:06; Start 11/30/16 at 16:00; Stop 12/04/16 at 09:12; Status DC Dextrose (D50w (Vial) Inj) 50 ml UNSCH PRN IV PUSH HYPOGLYCEMIA-SEE COMMENTS; Start 11/30/16 at 12:15; Stop 12/02/16 at 19:38; Status DC Glucagon (Glucagon Inj) 1 mg UNSCH PRN OTHER HYPOGLYCEMIA-SEE COMMENTS; Start 11/30/16 at 12:15; Stop 12/02/16 at 19:38; Status DC Insulin Human Regular (NovoLIN R SUPPLEMENTAL SCALE) 1 ACHS SLIDING SCALE SQ ; Start 11/30/16 at 17:00; Stop 12/02/16 at 09:49; Status DC Acetaminophen (Tylenol) 650 mg Q4H PRN PO PAIN OR TEMP >100.4 Last administered on 12/20/16 14:32; Start 11/30/16 at 13:15; Stop 12/27/16 at 11: 35; Status DC Magnesium Sulfate/ Dextrose 100 ml @ 100 mls/hr Q1H IV Last administered on 16:52; Start 12/01/16 at 14:00; Stop 12/01/16 at 15:59; Status DC Potassium Chloride (KCl Powder) 20 meq ONCE ONCE PO ; Start 12/01/16 at 14:00 ; Stop 12/01/16 at 14:01; Status DC Fentanyl Citrate (fentaNYL INJ) 200 mcg STK-MED ONCE .ROUTE Last administered on 12/01/16 15:00; Start 12/01/16 at 14:45; Stop 12/01/16 at 14:46; Status DC Midazolam HCl (Versed Inj) 4 mg STK-MED ONCE .ROUTE Last administered on 15:00; Start 12/01/16 at 14:45; Stop 12/01/16 at 14:46; Status DC Fentanyl Citrate (fentaNYL INJ) 100 mcg STK-MED ONCE .ROUTE Last administered on 12/01/16 15:55; Start 12/01/16 at 15:53; Stop 12/01/16 at 15:54; Status DC Midazolam HCl (Versed Inj) 2 mg STK-MED ONCE .ROUTE Last administered on 16:00; Start 12/01/16 at 15:53; Stop 12/01/16 at 15:54; Status DC Cefazolin Sodium/ Dextrose 50 ml @ As Directed STK-MED ONCE .ROUTE Last administered on 12/01/16 16:00; Start 12/01/16 at 16:03; Stop 12/01/16 at 16 :04; Status DC Iodixanol (VISIPAQUE 320 INJ (Rad Spec)) 65 ml STK-MED ONCE I-ARTERIAL Last administered on 12/01/16 16:15; Start 12/02/16 at 08:47; Stop 12/02/16 at 08 :51; Status DC Potassium Chloride (KCl Powder) 20 meq ONCE ONCE PO ; Start 12/02/16 at 10:00 ; Stop 12/02/16 at 10:02; Status DC Insulin Human Regular (NovoLIN R SUPPLEMENTAL SCALE) 1 Q6HR SQ ; Start at 12:00; Stop 12/02/16 at 19:38; Status DC Magnesium Sulfate/ Dextrose 100 ml @ 100 mls/hr ONCE ONCE IV Last administered on 12/02/16 11:11; Start 12/02/16 at 10:00; Stop 12/02/16 at 10 :59; Status DC Metoclopramide HCl (Reglan Inj) 5 mg Q8H IV PUSH Last administered on 02:28; Start 12/02/16 at 18:00; Stop 12/12/16 at 16:47; Status DC Racepinephrine (Racepinephrine 2.25% Neb) 0.5 ml Q4HR NEB PRN NEB hemoptysis/ stridor; Start 12/03/16 at 15:00; Stop 01/13/17 at 12:47; Status DC Albuterol/ Ipratropium (Duoneb Neb) 1 ampule Q6HR NEB NEB Last administered on 12/08/16 01:13; Start 12/04/16 at 10:00; Stop 12/08/16 at 09:59; Status DC Nitroglycerin (Nitroglycerin 2% Oint) 2 inch Q6H PRN TOPICAL SBP>160, DBP>90; Start 12/04/16 at 09:15 Clonidine (Catapres) 0.1 mg Q8H PO Last administered on 01/10/17 01:22; Start 12/04/16 at 10:00; Stop 01/10/17 at 16:51; Status DC Hydralazine HCl (Apresoline Inj) 10 mg Q1H PRN IV PUSH SBP>160, DBP>90 Last administered on 12/04/16 12:39; Start 12/04/16 at 09:15; Stop 12/16/16 at 15: 01; Status DC Labetalol HCl (Trandate Inj) 10 mg Q1H PRN IV PUSH SBP>160, DBP>90, HR>65; Start 12/04/16 at 09:15; Stop 12/16/16 at 15:01; Status DC Enalaprilat (Vasotec Inj) 1.25 mg Q6H PRN IV PUSH SBP>160, DBP>90; Start 12/04 at 09:15 Sodium Chloride (NS Flush) DAILY IV FLUSH Last administered on 01/09/17 09: 19; Start 12/04/16 at 18:00; Stop 01/13/17 at 12:47; Status DC Sodium Chloride (NS Flush) UNSCH PRN IV FLUSH SEE PROTOCOL; Start 12/04/16 at 18:00; Stop 01/13/17 at 12:47; Status DC Loperamide HCl (Imodium Liq) 2 mg UNSCH PRN PO DIARRHEA; Start 12/14/16 at 10: 45 Lactobacillus Acidophilus (Lactinex) 1 tab TID PO Last administered on 08:48; Start 12/14/16 at 18:00 Famotidine (Pepcid) 20 mg BID PO Last administered on 01/19/17 08:48; Start 12/16/16 at 21:00 Ferrous Sulfate (Ferrous Sulfate) 325 mg BID@12,17 PO Last administered on 01/18 17:44; Start 12/22/16 at 12:00 Ascorbic Acid (Vitamin C) 500 mg BID PO Last administered on 01/19/17 08:48; Start 12/22/16 at 09:00 Chlorhexidine Gluconate (Hibiclens 4% Top Soln) 1 applic HS TOP Last administered on 12/26/16 21:00; Start 12/22/16 at 21:00; Stop 12/26/16 at 21: 01; Status DC Cefazolin Sodium/ Dextrose 50 ml @ 150 mls/hr ONCE ONCE IV Last administered on 12/27/16 08:15; Start 12/27/16 at 06:00; Stop 12/27/16 at 06:19; Status DC Lactated Ringer's 1,000 ml @ 30 mls/hr Q24H PRN IV SEE LABEL COMMENTS; Start 12/26/16 at 15:00; Stop 12/27/16 at 11:25; Status DC Sodium Chloride 500 ml @ 30 mls/hr [id number] PRN IV SEE LABEL COMMENTS; Start at 15:00; Stop 12/27/16 at 11:25; Status DC Metoprolol Tartrate (Lopressor) 25 mg BARIATRIC PHYSICIAN PRN PO SEE LABEL COMMENTS; Start 12/26/16 at 15:00; Stop 12/29/16 at 14:59; Status DC Povidone Iodine (Betadine 5% Antisepsis Kit) 1 applic BARIATRIC PHYSICIAN PRN EACH NARE SEE LABEL COMMENTS; Start 12/26/16 at 15:00; Stop 12/29/16 at 14:59; Status DC Chlorhexidine Gluconate (Chlorhexidine 2% Cloth) 3 pack BARIATRIC PHYSICIAN PRN TOPICAL SEE LABEL COMMENTS; Start 12/26/16 at 15:00; Stop 12/29/16 at 14:59; Status DC Insulin Human Regular (NovoLIN R INJ) See Protocol Table ... BARIATRIC PHYSICIAN PRN SQ SEE PROTOCOL TABLE; Start 12/26/16 at 15:00; Stop 12/29/16 at 14:59; Status DC Thrombin (Thrombin Top Soln) 10,000 units STK-MED ONCE .ROUTE Last administered on 12/27/16 10:00; Start 12/27/16 at 07:52; Stop 12/27/16 at 07 :53; Status DC Gelatin (Gelfoam 100 Top) 1 foam STK-MED ONCE .ROUTE Last administered on 12/27 10:00; Start 12/27/16 at 07:53; Stop 12/27/16 at 07:54; Status DC Gentamicin Sulfate (Gentamicin Inj) 240 mg STK-MED ONCE .ROUTE Last administered on 12/27/16 10:00; Start 12/27/16 at 07:53; Stop 12/27/16 at 07 :54; Status DC Lidocaine/ Epinephrine (Xylocaine-Epi 1%-1:100,000 Inj) 20 ml STK-MED ONCE .ROUTE Last administered on 12/27/16 10:00; Start 12/27/16 at 07:54; Stop 12/27/16 at 07:55; Status DC Acetaminophen 100 ml @ As Directed STK-MED ONCE IV ; Start 12/27/16 at 07:57; Stop 12/27/16 at 07:58; Status DC Artificial Tears (Lacrilube Opht Oint) 3.5 applic STK-MED ONCE .ROUTE ; Start 12/27/16 at 07:58; Stop 12/27/16 at 07:59; Status DC Levetriacetam (Keppra Inj) 500 mg STK-MED ONCE IV Last administered on 10:10; Start 12/27/16 at 10:06; Stop 12/27/16 at 10:07; Status DC Potassium Chloride/Sodium Chloride 1,000 ml @ 100 mls/hr Q10H IV Last administered on 01/12/17 10:00; Start 12/27/16 at 11:17; Stop 01/12/17 at 11 :04; Status DC IV Flush (NS Flush) 2 ml UNSCH PRN IVF FLUSH AFTER USING IV ACCESS; Start at 11:30 IV Flush (NS Flush) 2 ml BID IVF Last administered on 01/13/17 08:44; Start 12/27/16 at 21:00; Stop 01/13/17 at 12:47; Status DC Cefazolin Sodium/ Dextrose 50 ml @ 100 mls/hr Q8H IV Last administered on 08:00; Start 12/27/16 at 16:00; Stop 12/28/16 at 08:29; Status DC Levetriacetam 500 mg/Sodium Chloride 105 ml @ 400 mls/hr Q12H IV ; Start 12/27 at 12:00; Status Cancel Bisacodyl (Dulcolax Supp) 10 mg DAILY PRN RECTAL CONSTIPATION; Start 12/27/16 at 11:30 Docusate Sodium (Colace) 100 mg BID PO Last administered on 01/19/17 08:48; Start 12/27/16 at 21:00 Pantoprazole Sodium (Protonix) 40 mg DAILY PO Last administered on 01/13/17 08 :44; Start 12/28/16 at 09:00; Stop 01/13/17 at 12:47; Status DC Pantoprazole Sodium (Protonix Inj) 40 mg DAILY IVP Last administered on 08:44; Start 12/28/16 at 09:00; Stop 01/13/17 at 12:43; Status DC Ondansetron HCl (Zofran Inj) 4 mg Q6H PRN IV PUSH NAUSEA OR VOMITING; Start at 11:30 Calcium Gluconate (Calcium Gluconate Inj) 1 gm UNSCH PRN IV SEE LABEL COMMENTS ; Start 12/27/16 at 11:30; Stop 12/27/16 at 11:31; Status DC Potassium Chloride 100 ml @ 50 mls/hr UNSCH PRN IV POTASSIUM LESS THAN 4; Start 12/27/16 at 11:30; Stop 01/10/17 at 16:51; Status DC Magnesium Sulfate 4 gm/Sodium Chloride 108 ml @ 108 mls/hr UNSCH PRN IV MAGNESIUM LESS THAN 2; Start 12/27/16 at 11:30; Stop 01/10/17 at 16:51; Status DC Acetaminophen/ Hydrocodone Bitart ([place] 10-325 Mg) 1 tab Q4H PRN PO PAIN 1-5 WHEN TOLERATING PO Last administered on 12/30/16 05:54; Start 12/27/16 at 11: 30 Acetaminophen/ Hydrocodone Bitart ([place] 10-325 Mg) 2 tab Q4H PRN PO PAIN 6-10 WHEN TOLERATING PO Last administered on 12/30/16 14:24; Start 12/27/16 at 11: 30 Morphine Sulfate (Morphine Inj) 2 mg Q2H PRN IV PUSH PAIN SCALE 1 TO 6 Last administered on 12/29/16 15:05; Start 12/27/16 at 11:30; Stop 01/13/17 at 12: 43; Status DC Morphine Sulfate (Morphine Inj) 4 mg Q2H PRN IV PUSH PAIN SCALE 7 TO 10 Last administered on 12/28/16 18:00; Start 12/27/16 at 11:30; Stop 01/13/17 at 12: 43; Status DC Acetaminophen (Tylenol) 650 mg Q4H PRN PO TEMPERATURE > 101.5 F; Start at 11:30 Meperidine HCl (*DEMEROL INJ PERIprocedural ONLY) 25 mg STK-MED ONCE .ROUTE Last administered on 12/27/16 11:21; Start 12/27/16 at 11:21; Stop 12/27/16 at 11:22; Status DC Calcium Gluconate 1 gm/Sodium Chloride 110 ml @ 110 mls/hr UNSCH PRN IV SEE LABEL COMMENT; Start 12/27/16 at 12:00; Stop 01/10/17 at 16:51; Status DC Miscellaneous Information ALL NURSING DEPARTME... UNSCH PRN .XX SEE LABEL COMMENTS; Start 12/27/16 at 11:45; Stop 12/28/16 at 11:44; Status DC Levetriacetam 500 mg/Sodium Chloride 105 ml @ 400 mls/hr Q12H IV ; Start 12/27 at 22:00; Status Cancel Levetriacetam (Keppra Liq) 500 mg Q12HR PEG Last administered on 01/13/17 08: 44; Start 12/27/16 at 21:00; Stop 01/13/17 at 12:47; Status DC Iohexol (Omnipaque 350 Inj) 85 ml STK-MED ONCE IVCONTRAST Last administered on 12/28/16 17:46; Start 12/28/16 at 17:46; Stop 12/28/16 at 17:47; Status DC Bacitracin (Bacitracin Oint Packet) 0.9 gm DAILY TOPICAL Last administered on 01/18/17 09:05; Start 12/30/16 at 18:31 Date of Insertion: Dec 04, 2016 Line: Central Venous Catheter Side: Left Location: Internal, Jugular A/P Problem List: (1) Subarachnoid hemorrhage due to ruptured aneurysm ICD Code: I60.8 - Other nontraumatic subarachnoid hemorrhage (2) Subdural hematoma ICD Code: I62.00 - Nontraumatic subdural hemorrhage, unspecified (3) Intracranial aneurysm ICD Code: I67.1 - Cerebral aneurysm, nonruptured (4) Respiratory failure ICD Code: J96.90 - Respiratory failure, unspecified, unspecified whether with hypoxia or hypercapnia Status: Acute Assessment and Plan 1. Subdural Hematoma/duraplasty status post left frontotemporal parietal craniotomy 10/08. 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 Initiated . - 10/13 and 10/14 and 10/17) 10/19 left MCA territory vasospasm, status post successful verapamil treatment by IR with 20 mg verapamil - 10/17 CT brain - less hemisphere edema with herniation through left craniotomy site, improved. - Dr. Perry/neurosurgery. S/p left cranioplasty/bone flap 12/27/16. - Echocardiogram 10/14/16 revealed EF 40-45%. Septal hypokinesis. Moderate MR. Severe pulmonary hypertension with pulmonary artery pressures estimated 61 mmHg Limited Echo 11/06: LVEF 60-65%, Trivial mitral and tricuspid regurgitation, No vegetations noted. - On diltiazem's 90 mg by mouth every 6 hours and furosemide 20 mg daily. Monitor BP and if low hold meds. - neurologically stable and doing well, and continued PT and rehabilitation. - PT, OT, speech following. Patient had helmet. Respiratory failure, S/P tracheostomy. Resolved now satting well on Room air. Monitor O2 sat, O2 supplement to keep O2 sat > 94 - S/p Trach Dr. Sullivan/Dr. Collazo 11/01 #8 [place] - CT angiogram chest/neck revealed right centrilobular bleeding likely source right bronchial artery. Repeat CT chest 11/29no visualization of active bleeding.- Resolved - 12/01 - embolization of right bronchial artery by IR- no further bleeding from tracheostomy - Redo trach 11/[address] Sullivan[address]now trach has been removed. - continue neb treatment. - trach removed Lower extremity edema improved. Ultrasound Doppler reviewed and no DVT. Patient with high risk of bleeding and is not chemoprophylaxis at this time. Continue SCDs and teds for DVT prophylaxis. Ileus- Resolved Elevated transaminases Hyperammonemia protein caloric malnutrition-calorie count performed- car distributor recommendations noted; - tube feeding on hold- will leave the PEG in place and continue to monitor. -car distributor following. Right occlusive subclavian, axillary and bilateral superficial cephalic thrombus - limited Echo to evaluate vegetation-neg. 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 Cardizem PO currently and 90 mg every 6 hours (for digital ischemia, Raynaud's) - Continue bacitracin twice a day to affected areas - We'll need to be started on systemic anticoagulation at some point however with recent embolization for hemoptysis holding full anticoagulation at this time. - evaluated by vascular surgery and no interventions recommended at this time. sacral ulcer - ABD dressing with [employer]- staff nurse makes sure to keep area dry. Wound care also consulted. appreciate recommendations. - Turn position every 2 hours - Out of bed to chair activity Course of hospitalization complications Acute hypoxic Respiratory failure secondary to mucous plugging- Resolved Possible healthcare associated pneumonia, Septic Shock- resolved. ARDS - resolved Noncardiogenic/neurogenic pulmonary edema- resolved. Massive Hemoptysis - resolved Aspiration pneumonitis - resolved Cerebral Salt Wasting/SIADH-resolved now hypernatremic - Creatinine currently within normal limits -> resolved. - Monitor urine output Septic and cardiogenic shock- resolved. LV dysfunction secondary to SAH - persistent, now resolved Elevated troponin- secondary to SAH, unlikely to be ACS. - resolved. Pulmonary hypertension s/p PEA arrest 11/28 after ETT dislodgement, hypoxic arrest DVT prop SCD, no chemoprophylaxis secondary to risk for bleeding. Problem Qualifiers (1) Respiratory failure: Qualified Codes: J96.00 - Acute respiratory failure, unspecified whether with hypoxia or hypercapnia Kristina Juárez MD Jan 19, 2017 10:38
[2017-01-19 12:25] VITALS: BP 122/69; PULSE 74; RESP 16; TEMP 98; O2SAT 98
[2017-01-19] MEDS: FERROUS SULFATE 325 MG (65 MG ELEMENTAL IRON) TAB PO SCH ×2 (13:52→17:04)
[2017-01-19 16:15] VITALS: BP 117/76; PULSE 87; RESP 17; TEMP 98; O2SAT 98
[2017-01-19 20:00] VITALS: BP 139/75; PULSE 74; RESP 18; TEMP 97.8; O2SAT 96
[2017-01-19] MEDS: MELATONIN 5 MG TAB PO SCH (20:06)
[2017-01-20] VITALS (7 sets, daily range): BP systolic 109–129; BP diastolic 72–80; PULSE 65–84; RESP 16–18; TEMP 98–98.5; O2SAT 96–98
[2017-01-20] MEDS: DILTIAZEM HCL 90 MG TAB PO SCH ×3 (05:18→17:03)
[2017-01-20] MEDS: CHLORHEXIDINE 0.12% (ORAL KIT) 15 ML CUP MT SCH ×2 (08:00→20:42)
[2017-01-20] MEDS: DOCUSATE SODIUM 100 MG CAP PO SCH ×2 (08:22→20:34)
[2017-01-20] MEDS: FAMOTIDINE 20 MG TAB PO SCH ×2 (08:22→20:34)
[2017-01-20] MEDS: ASCORBIC ACID 500 MG TAB PO SCH ×2 (08:22→20:34)
[2017-01-20] MEDS: LACTOBACILLUS ACIDOPHILUS TAB PO SCH ×3 (08:22→17:03)
[2017-01-20] MEDS: ARTIFICIAL TEARS OPTH SOLN 15 ML BTL EACH EYE SCH ×3 (08:23→18:00)
[2017-01-20] MEDS: BACITRACIN TOP OINT 15 GM TUBE TOPICAL SCH ×2 (08:23→20:35)
[2017-01-20] MEDS: BACITRACIN OINT 0.9 GM PKT TOPICAL SCH (08:23)
--- NOTE | 2017-01-20 10:55 | HHI.PR ---
Subjective Remarks in no distress. no new complaints. clinically the same. Objective Vitals Vital Signs Date Time Temp Pulse Resp B/P (MAP) Pulse Ox O2 Delivery O2 Flow Rate FiO2 01/20/17 10:38 96 21 01/20/17 04:00 98.3 66 18 122/75 (91) 97 01/20/17 00:00 98.2 70 18 116/72 (87) 98 01/19/17 20:00 97.8 74 18 139/75 (96) 96 01/19/17 16:15 98.0 87 17 117/76 (90) 98 01/19/17 12:25 98.0 74 16 122/69 (86) 98 I/O 01/19/17 01/19/17 01/19/17 01/20/17 01/20/17 01/20/17 07:00 15:00 23:00 07:00 15:00 23:00 Output Total 850 ml 700 ml 600 ml Balance -850 ml -700 ml -600 ml Output Urine Total 850 ml 700 ml 600 ml # Bowel Movements 0 0 Imaging Last Impressions Lower Extremity Ultrasound 12/29/16 0000 Signed Impressions: Service Date/Time: December 13:07 - CONCLUSION: No sonographic or Doppler findings of deep venous thrombosis. Joni Shelton MD Carotid Artery Ultrasound 12/27/16 0000 Signed Impressions: Service Date/Time: Tuesday, December 27, 2016 17:19 - CONCLUSION: Mild plaque at the carotid bulb regions bilaterally without a significant stenosis seen. Yosvany Alfaro MD Aorta w/Runoff CTA 12/27/16 0000 Signed Impressions: Service Date/Time: Wednesday, December 28, 2016 17:28 - CONCLUSION: Atherosclerotic calcification seen throughout the arterial system without an area of significant stenosis. The trifurcation vessels are only faintly opacified. Yosvany Alfaro MD Modified Barium Swallow 12/23/16 0000 Signed Impressions: Service Date/Time: Friday, December 23, 2016 09:11 - CONCLUSION: Negative for aspiration.. Remington Woodward MD FACR Chest X-Ray 12/04/16 [id number] Signed Impressions: Service Date/Time: Sunday, December 04, 2016 18:55 - CONCLUSION: 1. Placement of left central line tip in superior vena cava. No pneumothorax. Mild basilar airspace disease. Small right effusion. Gurwinder Root MD Upper Extremity Ultrasound 12/04/16 Signed Impressions: Service Date/Time: Sunday, December 04, 2016 15:37 - CONCLUSION: 1. Positive for occlusive deep venous thrombosis in the right axillary and subclavian vein. Occlusive superficial thrombus in bilateral cephalic veins. Gurwinder Root MD Angiography 12/01/16 Signed Impressions: Service Date/Time: November 14:02 - CONCLUSION: 1. Right side up on her hemorrhage with angiography of the right bronchial artery revealing no source of active hemorrhage. Empiric embolization was performed. Santos Crockett Jr., MD Chest CT 11/28/16 Signed Impressions: Service Date/Time: Tuesday, November 29, 2016 05:13 - CONCLUSION: 1. Patchy alveolar disease characteristic of edema or pneumonia. 2. Severe emphysema 3. Gastrojejunostomy tube looped in the stomach Harvey Morejon MD Chest/Thorax CTA 11/26/16 Signed Impressions: Service Date/Time: Saturday, November 26, 2016 20:18 - CONCLUSION: 1. Extensive filling defects within the right central bronchial tree characteristic of endobronchial hemorrhage. 2. Consolidating airspace disease in the right upper lobe and right lower lobe characteristic of hemorrhage and post obstructive lung consolidation. 3. Right bronchial artery is identified extending to the central right bronchial region 4. Advanced COPD. Nasir Amanda MD Abdomen X-Ray 11/19/16599 Signed Impressions: Service Date/Time: Saturday, November 19, 2016 02:44 - CONCLUSION: Unchanged bowel gas pattern potentially relating to an ileus. Santos Crockett Jr., MD Transcranial Doppler Study Complete 10/20/16599 Signed Impressions: Service Date/Time: October 07:54 - CONCLUSION: Slight interval elevation of flow velocity measurements and ratio on the left Yosvany Polk MD Liver Ultrasound 10/19/16 Signed Impressions: Service Date/Time: Wednesday, October 19, 2016 11:20 - CONCLUSION: 1. Sludge filled gallbladder with thickened wall. 2. Moderate size bilateral pleural effusions and mild upper abdominal ascites. Santos Vazquez MD Cerebral Arteriogram 10/19/16 Signed Impressions: Service Date/Time: Wednesday, October 19, 2016 12:47 - CONCLUSION: Uncomplicated cerebral arteriography with spasmolytic therapy as described in detail above. Yosvany Polk MD Head CT 10/17/16 0000 Signed Impressions: Service Date/Time: Monday, October 17, 2016 15:06 - CONCLUSION: Ventricles are slightly larger without ventriculostomy. Edema in the left hemisphere the brain herniating through the operative site. Remington Woodward MD FACR Infusion Non-thrombolysis 10/14/16 1103 Signed Impressions: Service Date/Time: Friday, October 14, 2016 10:21 - CONCLUSION: 1. Uncomplicated infusion for spasmolysis Harvey Morejon MD Neck CTA 10/07/16 0000 Signed Impressions: Service Date/Time: Friday, October 07, 2016 15:03 - CONCLUSION: 1. Mild carotid bulb atherosclerotic calcification bilaterally. However, no significant stenosis is present in either internal carotid artery. 2. Paranasal sinus mucoperiosteal thickening. 3. Please refer to brain CTA report for description of the intracranial findings. Yosvany Ramirez MD Head CTA 10/07/16 0000 Signed Impressions: Service Date/Time: Friday, October 07, 2016 15:03 - CONCLUSION: 1. 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 2. Large left subdural hematoma measuring 1.3 cm in depth with a significant, 1.6 cm left to right subfalcine shift. Joni Shelton MD Objective Remarks GENERAL: This is a well-nourished, well-developed patient, in no apparent distress. CARDIOVASCULAR: Regular rate and regular rhythm without murmurs, gallops, or rubs. RESPIRATORY: Clear to auscultation. Breath sounds equal bilaterally. No wheezes , rales, or rhonchi. GASTROINTESTINAL: Abdomen soft, non-tender, nondistended. Normal, active bowel sounds MUSCULOSKELETAL: Extremities without clubbing, cyanosis, or edema. NEURO: awake and alert. Procedures 10/13 Four-vessel cerebral angiography with verapamil treatment of vasospasm Status post left frontotemporal parietal craniectomy 10/08 for evacuation subdural hematoma/duraplasty. 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 parietal cranioplasty with replacement of skull flap by Dr Perry neurosurgery on 12/27/16 Medications and IVs Current Medications Iohexol (Omnipaque 350 Inj) 100 ml STK-MED ONCE IVCONTRAST Last administered on 10/07/16 14:21; Start 10/07/16 at 14:21; Stop 10/07/16 at 15:21; Status DC Mannitol 50 ml @ As Directed STK-MED ONCE .ROUTE ; Start 10/07/16 at 15:25; Stop 10/07/16 at 15:26; Status DC Propofol 0 ml @ As Directed STK-MED ONCE .ROUTE ; Start 10/07/16 at 15:25; Stop 10/07/16 at 15:26; Status DC Levetriacetam (Keppra Inj) 1,000 mg STK-MED ONCE IV Last administered on 18:30; Start 10/07/16 at 15:27; Stop 10/07/16 at 15:28; Status DC Mannitol (Mannitol Inj) 50 gm ONCE ONCE IV Last administered on 10/13/16 21: 00; Start 10/07/16 at 15:30; Stop 10/07/16 at 15:31; Status DC Nicardipine HCl 25 mg/Sodium Chloride 260 ml @ 52 mls/hr Q5H PRN IV Blood pressure management; Start 10/07/16 at 15:40; Stop 10/14/16 at 21:02; Status DC Propofol 100 ml @ 0 mls/hr Q0M PRN IV Ordered RASS Last administered on 23:01; Start 10/07/16 at 15:40; Stop 10/07/16 at 23:16; Status DC Sodium Chloride 1,000 ml @ 75 mls/hr [id number] IV ; Start 10/07/16 at 16:08; Stop 10/07/16 at 18:34; Status DC Sodium Chloride (NS Flush) 2 ml UNSCH PRN IV FLUSH FLUSH AFTER USING IV ACCESS ; Start 10/07/16 at 16:15; Stop 10/07/16 at 18:40; Status DC Sodium Chloride (NS Flush) 2 ml BID IV FLUSH ; Start 10/07/16 at 21:00; Stop at 21:00; Status DC Acetaminophen (Tylenol) 650 mg Q6H PRN PO PAIN 1-10 AND/OR FEVER >101F; Start 10/07/16 at 16:15; Stop 10/07/16 at 19:04; Status DC Albuterol/ Ipratropium (Duoneb Neb) 1 ampule Q6HR NEB NEB Last administered on 10/11/16 15:16; Start 10/07/16 at 22:00; Stop 10/11/16 at 21:59; Status DC Albuterol/ Ipratropium (Duoneb Neb) 1 ampule Q4HR NEB PRN INH SHORTNESS OF BREATH Last administered on 10/14/16 19:33; Start 10/07/16 at 16:15; Stop at 09:43; Status DC Chlorhexidine Gluconate (Peridex 0.12% Liq) 15 ml BID@08,20 MT Last administered on 11/28/16 08:00; Start 10/07/16 at 20:00; Stop 11/28/16 at 11: 18; Status DC Pantoprazole Sodium (Protonix Inj) 40 mg DAILY IV ; Start 10/08/16 at 09:00; Stop 10/08/16 at 09:00; Status DC Miscellaneous Information 1 [id number] ; Start 10/07/16 at 16:15; Stop 10/19/16 at 12:07; Status DC Chlorhexidine Gluconate (Chlorhexidine 2% Cloth) Taper DAILY@04 TOP Last administered on 10/19/16 03:13; Start 10/08/16 at 04:00; Stop 10/19/16 at 12:07; Status DC Chlorhexidine Gluconate (Chlorhexidine 2% Cloth) 3 pack UNSCH PRN TOP HYGIENIC CARE; Start 10/07/16 at 16:15; Stop 10/19/16 at 12:07; Status DC Insulin Aspart (NovoLOG SUPPLEMENTAL SCALE) 1 Q6HR SQ Last administered on 06:40; Start 10/07/16 at 18:00; Stop 10/20/16 at 09:23; Status DC Propofol 100 ml @ 0 mls/hr Q0M PRN IV SEDATION; Start 10/07/16 at 16:08; Status UNV Nimodipine (Nimotop) 60 mg Q4HR OG-TUBE Last administered on 10/12/16 15:18; Start 10/07/16 at 20:00; Stop 10/12/16 at 23:47; Status DC Verapamil HCl (Isoptin Inj) 10 mg STK-MED ONCE .ROUTE ; Start 10/07/16 at 16:45 ; Stop 10/07/16 at 16:46; Status DC Nitroglycerin (Nitroglycerin 2% Oint) 1 inch STK-MED ONCE .ROUTE ; Start at 16:55; Stop 10/07/16 at 16:56; Status DC Heparin Sodium (Porcine) (Heparin Inj) 10,000 units STK-MED ONCE .ROUTE ; Start 10/07/16 at 16:56; Stop 10/07/16 at 16:57; Status DC Potassium Chloride/Sodium Chloride 1,000 ml @ 100 mls/hr Q10H IV Last administered on 10/14/16 07:08; Start 10/07/16 at 18:20; Stop 10/14/16 at 21:02; Status DC IV Flush (NS Flush) 2 ml UNSCH PRN IVF FLUSH AFTER USING IV ACCESS; Start 10/07 at 18:30; Stop 10/19/16 at 12:09; Status DC IV Flush (NS Flush) 2 ml BID IVF Last administered on 10/19/16 09:00; Start at 21:00; Stop 10/19/16 at 12:09; Status DC Cefazolin Sodium/ Dextrose 50 ml @ 100 mls/hr Q8H IV Last administered on 10/08 10:30; Start 10/07/16 at 19:00; Stop 10/08/16 at 11:29; Status DC Levetriacetam 500 mg/Sodium Chloride 105 ml @ 400 mls/hr Q12H IV Last administered on 10/31/16 05:11; Start 10/08/16 at 06:00; Stop 10/31/16 at 10:47 ; Status DC Bisacodyl (Dulcolax Supp) 10 mg DAILY PRN RECTAL CONSTIPATION; Start 10/07/16 at 18:30; Stop 10/31/16 at 10:47; Status DC Docusate Sodium (Colace) 100 mg BID PO Last administered on 10/19/16 09:00; Start 10/07/16 at 21:00; Stop 10/19/16 at 12:15; Status DC Pantoprazole Sodium (Protonix) 40 mg DAILY PO Last administered on 10/14/16 07: 47; Start 10/08/16 at 09:00; Stop 10/19/16 at 09:46; Status DC Pantoprazole Sodium (Protonix Inj) 40 mg DAILY IVP Last administered on 07:45; Start 10/08/16 at 09:00; Stop 10/12/16 at 14:30; Status DC Ondansetron HCl (Zofran Inj) 4 mg Q6H PRN IV NAUSEA OR VOMITING Last administered on 11/13/16 20:31; Start 10/07/16 at 18:30; Stop 12/08/16 at 13: 55; Status DC Calcium Gluconate (Calcium Gluconate Inj) 1 gm UNSCH PRN IV SEE LABEL COMMENTS Last administered on 10/16/16 10:00; Start 10/07/16 at 18:30; Stop 11/17/16 at 14:34; Status DC Potassium Chloride 100 ml @ 50 mls/hr UNSCH PRN IV POTASSIUM LESS THAN 4 Last administered on 12/02/16 08:13; Start 10/07/16 at 18:30; Stop 12/16/16 at 15: 01; Status DC Magnesium Sulfate 4 gm/Sodium Chloride 108 ml @ 108 mls/hr UNSCH PRN IV MAGNESIUM LESS THAN 2; Start 10/07/16 at 18:30; Stop 12/27/16 at 11:35; Status DC Acetaminophen/ Hydrocodone Bitart (Lasara 10-325 Mg) 1 tab Q4H PRN PO PAIN SCALE 1 TO 5 Last administered on 10/13/16 13:07; Start 10/07/16 at 18:30; Stop 10/15/16 at 08:05; Status DC Acetaminophen/ Hydrocodone Bitart (Lasara 10-325 Mg) 2 tab Q4H PRN PO PAIN SCALE 6 TO 10 Last administered on 10/09/16 10:20; Start 10/07/16 at 18:30; Stop 10/15/16 at 08:05; Status DC Morphine Sulfate (Morphine Inj) 2 mg Q2H PRN IV PUSH PAIN SCALE 1 TO 6 Last administered on 10/10/16 17:52; Start 10/07/16 at 18:30; Stop 10/15/16 at 08:05 ; Status DC Morphine Sulfate (Morphine Inj) 4 mg Q2H PRN IV PUSH PAIN SCALE 7 TO 10 Last administered on 10/08/16 01:55; Start 10/07/16 at 18:30; Stop 10/15/16 at 08:05 ; Status DC Acetaminophen (Tylenol) 650 mg Q4H PRN PO TEMP >100.4 Last administered on 11/14 03:07; Start 10/07/16 at 18:30; Stop 11/30/16 at 13:12; Status DC Iodixanol (VISIPAQUE 320 INJ (Rad Spec)) 65 ml STK-MED ONCE I-ARTERIAL Last administered on 10/07/16 18:38; Start 10/07/16 at 18:38; Stop 10/07/16 at 18:39 ; Status DC Dextrose (D50w (Vial) Inj) 50 ml UNSCH PRN IV PUSH HYPOGLYCEMIA - SEE COMMENTS Last administered on 11/01/16 09:22; Start 10/07/16 at 19:15; Stop 11/12/16 at 08:41; Status DC Glucagon (Glucagon Inj) 1 mg UNSCH PRN OTHER HYPOGLYCEMIA-SEE COMMENTS; Start 10/07/16 at 19:15; Stop 11/12/16 at 08:42; Status DC Midazolam HCl (Versed Inj) 4 mg STK-MED ONCE .ROUTE ; Start 10/07/16 at 19:51; Stop 10/07/16 at 19:52; Status DC Fentanyl Citrate (fentaNYL INJ) 250 mcg STK-MED ONCE .ROUTE ; Start 10/07/16 at 20:32; Stop 10/07/16 at 20:33; Status DC Propofol 100 ml @ 0 mls/hr TITRATE PRN IV Sedation Last administered on 05:31; Start 10/07/16 at 23:15; Stop 11/01/16 at 14:52; Status DC Epinephrine HCl (EPINEPHrine (1:10,000) INJ) 1 mg STK-MED ONCE .ROUTE ; Start at 04:09; Stop 10/09/16 at 04:10; Status DC Atropine Sulfate (Atropine Inj) 1 mg STK-MED ONCE .ROUTE ; Start 10/09/16 at 04: 09; Stop 10/09/16 at 04:10; Status DC Lidocaine HCl (Xylocaine 2% Inj) 100 mg STK-MED ONCE .ROUTE ; Start 10/09/16 at 04:09; Stop 10/09/16 at 04:10; Status DC Nimodipine (Nimotop) 60 mg Q4HR PO Last administered on 11/02/16 20:23; Start 10/13/16 at 00:00; Stop 11/02/16 at 23:59; Status DC Verapamil HCl (Isoptin Inj) 20 mg STK-MED ONCE .ROUTE Last administered on 10/13 17:10; Start 10/13/16 at 17:10; Stop 10/13/16 at 17:11; Status DC Iodixanol (VISIPAQUE 320 INJ (Rad Spec)) 45 ml STK-MED ONCE I-ARTERIAL Last administered on 10/13/16 17:40; Start 10/13/16 at 17:49; Stop 10/13/16 at 17:50 ; Status DC Midazolam HCl (Versed Inj) 2 mg STK-MED ONCE .ROUTE ; Start 10/13/16 at 18:32; Stop 10/13/16 at 18:33; Status DC Fentanyl Citrate (fentaNYL INJ) 200 mcg STK-MED ONCE .ROUTE ; Start 10/13/16 at 18:32; Stop 10/13/16 at 18:33; Status DC Sodium Chloride 2,000 ml @ 0 mls/hr Q0M IV Last administered on 10/14/16 20:20 ; Start 10/13/16 at 21:45; Stop 10/14/16 at 23:59; Status DC Phenylephrine HCl (Neosynephrine Inj) 10 mg STK-MED ONCE .ROUTE Last administered on 10/14/16 09:10; Start 10/14/16 at 09:10; Stop 10/14/16 at 09:11; Status DC Verapamil HCl (Isoptin Inj) 20 mg STK-MED ONCE .ROUTE Last administered on 10:19; Start 10/14/16 at 10:19; Stop 10/14/16 at 10:20; Status DC Fentanyl Citrate (fentaNYL INJ) 100 mcg STK-MED ONCE .ROUTE Last administered on 10/14/16 10:32; Start 10/14/16 at 10:32; Stop 10/14/16 at 10:33; Status DC Midazolam HCl (Versed Inj) 2 mg STK-MED ONCE .ROUTE Last administered on 10:32; Start 10/14/16 at 10:32; Stop 10/14/16 at 10:33; Status DC Midazolam HCl (Versed Inj) 2 mg STK-MED ONCE .ROUTE ; Start 10/14/16 at 10:32; Stop 10/14/16 at 10:33; Status DC Vasopressin 40 units/Dextrose 100 ml @ 4.5 mls/hr [id number] IV Last administered on 10/25/16 02:30; Start 10/14/16 at 11:30; Stop 10/31/16 at 10:47 ; Status DC Albumin Human (Albumin 5% Inj) 25 gm ONCE ONCE IV Last administered on 11:34; Start 10/14/16 at 11:15; Stop 10/14/16 at 11:17; Status DC Iodixanol (VISIPAQUE 320 INJ (Rad Spec)) 10 ml STK-MED ONCE I-ARTERIAL Last administered on 10/14/16 11:06; Start 10/14/16 at 11:06; Stop 10/14/16 at 11:07; Status DC Fludrocortisone Acetate (Florinef) 0.1 mg BID PO Last administered on 10/15/16 11:39; Start 10/14/16 at 11:45; Stop 10/15/16 at 13:17; Status DC Phenylephrine HCl (Neosynephrine Inj) 10 mg STK-MED ONCE .ROUTE Last administered on 10/14/16 12:18; Start 10/14/16 at 12:18; Stop 10/14/16 at 12:19; Status DC Norepinephrine Bitartrate 250 ml @ As Directed STK-MED ONCE IV ; Start 10/14/16 at 13:14; Stop 10/14/16 at 13:15; Status DC Norepinephrine Bitartrate (Levophed Inj) 4 mg STK-MED ONCE .ROUTE Last administered on 10/14/16 13:15; Start 10/14/16 at 13:15; Stop 10/14/16 at 13:16; Status DC Etomidate (Amidate Inj) 20 mg STK-MED ONCE .ROUTE Last administered on 9/1/ 17at 14:18; Start 10/14/16 at 13:44; Stop 10/14/16 at 13:45; Status DC Midazolam HCl (Versed Inj) 5 mg STK-MED ONCE .ROUTE Last administered on 14:18; Start 10/14/16 at 13:44; Stop 10/14/16 at 13:45; Status DC Rocuronium Meridian (Zemuron Inj) 50 mg STK-MED ONCE .ROUTE Last administered on 10/14/16 14:17; Start 10/14/16 at 13:45; Stop 10/14/16 at 13:46; Status DC Fentanyl Citrate 250 ml @ 5 mls/hr TITRATE PRN IV SEDATION Last administered on 10/30/16 17:39; Start 10/14/16 at 15:00; Stop 11/01/16 at 14:52; Status DC Phenylephrine HCl (Neosynephrine Inj) 10 mg STK-MED ONCE .ROUTE Last administered on 10/14/16 14:26; Start 10/14/16 at 14:26; Stop 10/14/16 at 14:27; Status DC Norepinephrine Bitartrate 4 mg/ Sodium Chloride 250 ml @ 7.5 mls/hr TITRATE PRN IV Blood pressure management Last administered on 10/15/16 15:05; Start 10/14 at 14:45; Stop 10/15/16 at 14:54; Status DC Terbutaline Sulfate (Brethine Inj) 1 mg UNSCH PRN SQ For Extravasation; Start 10/14/16 at 14:45; Stop 10/19/16 at 12:10; Status DC Rocuronium Meridian (Zemuron Inj) 50 mg STK-MED ONCE .ROUTE Last administered on 10/14/16 14:43; Start 10/14/16 at 14:43; Stop 10/14/16 at 14:44; Status DC Midazolam HCl 100 ml @ 2 mls/hr TITRATE PRN IV SEDATION Last administered on 22:54; Start 10/14/16 at 15:00; Stop 10/25/16 at 08:47; Status DC Phenylephrine HCl (Neosynephrine Inj) 10 mg STK-MED ONCE .ROUTE ; Start 10/14/16 at 18:03; Stop 10/14/16 at 18:04; Status DC Phenylephrine HCl 40 mg/Dextrose 500 ml @ 30 mls/hr TITRATE PRN IV Blood pressure management Last administered on 10/15/16 15:02; Start 10/14/16 at 18:30 ; Stop 10/15/16 at 15:36; Status DC Terbutaline Sulfate (Brethine Inj) 1 mg UNSCH PRN SQ For Extravasation; Start 10/14/16 at 18:15; Stop 10/15/16 at 08:05; Status DC Heparin Sodium (Porcine) (Heparin Inj) 5,000 units Q8HR SQ Last administered on 11/13/16 21:20; Start 10/14/16 at 22:00; Status Future Hold Isoproterenol HCl 2 mg/Dextrose 260 ml @ 23.4 mls/hr TITRATE PRN IV Hypotension Last administered on 10/14/16 21:26; Start 10/14/16 at 21:00; Stop at 16:24; Status DC Sodium Chloride 1,000 ml @ 50 mls/hr Q20H IV Last administered on 10/15/16 09: 54; Start 10/14/16 at 21:15; Stop 10/16/16 at 09:17; Status DC Phenylephrine HCl (Neosynephrine Inj) 40 mg STK-MED ONCE .ROUTE ; Start 10/14/16 at 23:30; Stop 10/14/16 at 23:31; Status DC Phenylephrine HCl (Neosynephrine Inj) 10 mg STK-MED ONCE .ROUTE ; Start 10/14/16 at 23:31; Stop 10/14/16 at 23:32; Status DC Epinephrine HCl 2 mg/Dextrose 252 ml @ 22.68 mls/ hr TITRATE PRN IV Blood Pressure Management Last administered on 10/15/16 15:03; Start 10/15/16 at 02:00 ; Stop 10/15/16 at 14:54; Status DC Epinephrine HCl (Adrenalin (1:1000) Inj) 2 mg STK-MED ONCE .ROUTE ; Start at 01:59; Stop 10/15/16 at 02:00; Status DC Lorazepam (Ativan Inj) 2 mg STK-MED ONCE .ROUTE ; Start 10/15/16 at 02:13; Stop 10/15/16 at 02:14; Status DC Epoprostenol Sodium 75 ml/ Sodium Chloride 100 ml @ 8 mls/hr Q8H NEB Last administered on 10/21/16 15:25; Start 10/15/16 at 03:00; Stop 10/21/16 at 16:05; Status DC Lorazepam (Ativan Inj) 2 mg ONCE ONCE IV PUSH Last administered on 10/15/16 03 :33; Start 10/15/16 at 02:30; Stop 10/15/16 at 02:37; Status DC Fosphenytoin Sodium 1000 mgpe/ Sodium Chloride 70 ml @ 280 mls/hr ONCE ONCE IV Last administered on 10/15/16 03:32; Start 10/15/16 at 02:30; Stop 10/15/16 at 02:44; Status DC Fosphenytoin Sodium (Cerebyx Inj) 100 mgpe Q8HR IV Last administered on 06:28; Start 10/15/16 at 10:00; Stop 10/25/16 at 14:25; Status DC Calcium Chloride 1 gm/Sodium Chloride 110 ml @ 110 mls/hr ONCE ONCE IV Last administered on 10/15/16 03:52; Start 10/15/16 at 03:15; Stop 10/15/16 at 04:14; Status DC Pharmacy Profile Note 0 ml @ 0 mls/hr UNSCH OTHER ; Start 10/15/16 at 03:30; Stop 10/18/16 at 07:20; Status DC Cefepime HCl 2000 mg/Sodium Chloride 100 ml @ 200 mls/hr Q8H IV Last administered on 10/18/16 03:34; Start 10/15/16 at 04:00; Stop 10/18/16 at 07:20; Status DC Azithromycin 500 mg/Sodium Chloride 250 ml @ 250 mls/hr Q24H IV Last administered on 10/18/16 03:34; Start 10/15/16 at 04:00; Stop 10/18/16 at 07:20; Status DC Albuterol/ Ipratropium (Duoneb Neb) 1 ampule Q4HR WHILE AWAKE NEB NEB Last administered on 10/18/16 20:21; Start 10/15/16 at 08:00; Stop 10/19/16 at 07:59; Status DC Vancomycin HCl 1000 mg/Sodium Chloride 250 ml @ 250 mls/hr ONCE ONCE IV Last administered on 10/15/16 07:02; Start 10/15/16 at 05:00; Stop 10/15/16 at 05:59; Status DC Hydrocortisone Sodium Succinate (SoluCORTEF INJ) 100 mg Q8H IV PUSH Last administered on 10/22/16 04:34; Start 10/15/16 at 04:00; Stop 10/22/16 at 10:29; Status DC Phenylephrine HCl (Neosynephrine Inj) 20 mg STK-MED ONCE .ROUTE ; Start 10/15/16 at 04:35; Stop 10/15/16 at 04:36; Status DC Sodium Chloride 500 ml @ 30 mls/hr CONTINUOUS IV Last administered on 11:43; Start 10/15/16 at 08:00; Stop 10/22/16 at 10:29; Status DC Calcium Gluconate 2 gm/Sodium Chloride 120 ml @ 120 mls/hr ONCE ONCE IV Last administered on 10/15/16 09:26; Start 10/15/16 at 09:00; Stop 10/15/16 at 09:59; Status DC Albumin Human (Albumin 5% Inj) 12.5 gm STK-MED ONCE IV Last administered on 10/15 09:17; Start 10/15/16 at 09:17; Stop 10/15/16 at 09:18; Status DC Rocuronium Meridian (Zemuron Inj) 50 mg STK-MED ONCE .ROUTE Last administered on 10/15/16 09:50; Start 10/15/16 at 09:50; Stop 10/15/16 at 09:51; Status DC Vancomycin HCl 1250 mg/Sodium Chloride 262.5 ml @ 262.5 mls/ hr Q12H IV Last administered on 10/17/16 05:57; Start 10/15/16 at 18:00; Stop 10/17/16 at 09:41; Status DC Miscellaneous Information SPECIFIC LAB TO BE LI... ONCE ONCE .XX Last administered on 10/17/16 05:45; Start 10/17/16 at 05:45; Stop 10/17/16 at 05:46; Status DC Cisatracurium Besylate 100 mg/ Sodium Chloride 260 ml @ 11.24 mls/ hr TITRATE PRN IV TOF 1/4 Last administered on 10/21/16 12:59; Start 10/15/16 at 13:00; Stop 10/31/16 at 10:47; Status DC Sodium Chloride 240 meq/Syringe / Bag 60 ml @ 120 mls/hr ONCE ONCE IV Last administered on 10/15/16 13:25; Start 10/15/16 at 13:15; Stop 10/15/16 at 13:44; Status DC Sodium Chloride (Sodium Chloride) 3 gm TID PO Last administered on 11/04/16 10 :18; Start 10/15/16 at 13:15; Stop 11/04/16 at 11:21; Status DC Fludrocortisone Acetate (Florinef) 0.2 mg BID PO Last administered on 10/16/16 08:12; Start 10/15/16 at 21:00; Stop 10/16/16 at 09:12; Status DC Epinephrine HCl 2 mg/Dextrose 252 ml @ 22.68 mls/ hr TITRATE PRN IV Blood Pressure Management; Start 10/15/16 at 15:00; Stop 10/15/16 at 15:32; Status DC Norepinephrine Bitartrate 4 mg/ Sodium Chloride 250 ml @ 7.5 mls/hr TITRATE PRN IV Blood pressure management; Start 10/15/16 at 15:00; Stop 10/15/16 at 15:56 ; Status DC Sodium Chloride 240 meq/Syringe / Bag 60 ml @ 120 mls/hr ONCE ONCE IV Last administered on 10/15/16 15:33; Start 10/15/16 at 15:30; Stop 10/15/16 at 15:59; Status DC Epinephrine HCl 8 mg/Dextrose 250 ml @ 5.62 mls/hr TITRATE PRN IV Blood Pressure Management Last administered on 10/17/16 08:30; Start 10/15/16 at 15:30 ; Stop 10/17/16 at 10:08; Status DC Phenylephrine HCl 160 mg/Dextrose 500 ml @ 7.5 mls/hr TITRATE PRN IV Blood Pressure Management Last administered on 10/18/16 09:34; Start 10/15/16 at 15:45 ; Stop 10/17/16 at 10:08; Status DC Terbutaline Sulfate (Brethine Inj) 1 mg UNSCH PRN SQ FOR EXTRAVASATION PROTOCOL ; Start 10/15/16 at 15:45; Stop 11/01/16 at 07:51; Status DC Norepinephrine Bitartrate 16 mg/ Sodium Chloride 250 ml @ 1.87 mls/hr TITRATE PRN IV Blood pressure management Last administered on 10/17/16 09:11; Start 10/15 at 16:00; Stop 10/17/16 at 10:08; Status DC Calcium Gluconate 3 gm/Sodium Chloride 130 ml @ 120 mls/hr ONCE ONCE IV Last administered on 10/16/16 09:48; Start 10/16/16 at 10:00; Stop 10/16/16 at 11:04; Status DC Sodium Chloride 240 meq/Syringe / Bag 60 ml @ 120 mls/hr ONCE ONCE IV Last administered on 10/16/16 09:48; Start 10/16/16 at 10:00; Stop 10/16/16 at 10:29; Status DC Magnesium Oxide (Mag-Ox) 800 mg UNSCH PRN PO For Magnesium 1.2 - 1.6 mg/dL; Start 10/16/16 at 09:15; Stop 11/25/16 at 09:51; Status DC Magnesium Sulfate 4 gm/Sodium Chloride 100 ml @ 50 mls/hr UNSCH PRN IV For Magnesium 0.9 - 1.1 mg/dL; Start 10/16/16 at 09:15; Stop 11/25/16 at 09:51; Status DC Magnesium Sulfate 2 gm/Sodium Chloride 100 ml @ 50 mls/hr UNSCH PRN IV For Magnesium 1.2 - 1.6 mg/dL; Start 10/16/16 at 09:15; Stop 11/25/16 at 09:51; Status DC Potassium Chloride 100 ml @ 50 mls/hr Q2H PRN IV For Potassium 2.8 - 3.2 mEq/ L Last administered on 11/15/16 12:36; Start 10/16/16 at 09:15; Stop 11/25/16 at 09:51; Status DC Potassium Chloride 100 ml @ 50 mls/hr Q2H PRN IV For Potassium 3.3 - 3.5 mEq/L ; Start 10/16/16 at 09:15; Stop 11/25/16 at 09:51; Status DC Potassium Chloride 100 ml @ 50 mls/hr Q2H PRN IV For Potassium 2.8 - 3.2 mEq/ L Last administered on 10/27/16 13:26; Start 10/16/16 at 09:15; Stop 11/25/16 at 09:51; Status DC Potassium Chloride 100 ml @ 25 mls/hr UNSCH PRN IV For Potassium 3.3 - 3.5 mEq /L Last administered on 10/30/16 06:06; Start 10/16/16 at 09:15; Stop 11/25/16 at 09:51; Status DC Potassium Phosphate (K-Phos) 2,000 mg Q4H PRN PO For Phosphorus < 2.5 mg/dL; Start 10/16/16 at 09:15; Stop 11/25/16 at 09:51; Status DC Potassium Phosphate (K-Phos) 2,000 mg UNSCH PRN PO/TUBE SEE LABEL COMMENTS; Start 10/16/16 at 09:15; Stop 11/25/16 at 09:51; Status DC Potassium Phosphate 30 mmol/ Sodium Chloride 260 ml @ 42 mls/hr UNSCH PRN IV SEE LABEL COMMENTS Last administered on 10/24/16 20:39; Start 10/16/16 at 09:15 ; Stop 11/25/16 at 09:51; Status DC Sodium Phosphate 30 mmol/Sodium Chloride 250 ml @ 42 mls/hr UNSCH PRN IV For Phosphorus < 2.5 mg/dL Last administered on 10/22/16 06:46; Start 10/16/16 at 09: 15; Stop 11/25/16 at 09:51; Status DC Furosemide (Lasix Inj) 40 mg STK-MED ONCE .ROUTE Last administered on 10/16/16 13:27; Start 10/16/16 at 13:27; Stop 10/16/16 at 13:28; Status DC Vancomycin HCl 1250 mg/Sodium Chloride 262.5 ml @ 250 mls/hr Q8H IV Last administered on 10/18/16 06:10; Start 10/17/16 at 14:00; Stop 10/18/16 at 07:20; Status DC Miscellaneous Information SPECIFIC LAB TO BE LI... ONCE ONCE .XX Last administered on 10/18/16 05:45; Start 10/18/16 at 05:45; Stop 10/18/16 at 05:46; Status DC Sodium Chloride 1,000 ml @ 999 mls/hr BOLUS ONCE IV Last administered on 10:45; Start 10/17/16 at 11:00; Stop 10/17/16 at 12:00; Status DC Epinephrine HCl 8 mg/Dextrose 250 ml @ 5.62 mls/hr TITRATE PRN IV Blood Pressure Management; Start 10/17/16 at 10:15; Status Cancel Norepinephrine Bitartrate 16 mg/ Sodium Chloride 250 ml @ 1.87 mls/hr TITRATE PRN IV Blood pressure management Last administered on 10/20/16 01:07; Start 10/17 at 10:15; Stop 10/31/16 at 10:47; Status DC Phenylephrine HCl 160 mg/Dextrose 500 ml @ 7.5 mls/hr TITRATE PRN IV Blood Pressure Management Last administered on 10/23/16 14:21; Start 10/17/16 at 10:15 ; Stop 10/29/16 at 11:49; Status DC Epinephrine HCl 8 mg/Dextrose 250 ml @ 5.62 mls/hr TITRATE PRN IV Blood Pressure Management Last administered on 10/20/16 15:14; Start 10/17/16 at 11:15 ; Stop 10/29/16 at 11:49; Status DC Heparin Sodium (Porcine) (*HEPARIN INJ Periprocedural ONLY) 10,000 units STK- MED ONCE .ROUTE Last administered on 10/17/16 14:54; Start 10/17/16 at 14:54; Stop 10/17/16 at 14:55; Status DC Verapamil HCl (Isoptin Inj) 20 mg STK-MED ONCE .ROUTE Last administered on 15:34; Start 10/17/16 at 15:34; Stop 10/17/16 at 15:35; Status DC Iodixanol (VISIPAQUE 320 INJ (Rad Spec)) 40 ml STK-MED ONCE I-ARTERIAL Last administered on 10/17/16 16:00; Start 10/17/16 at 16:31; Stop 10/17/16 at 16:32; Status DC Sodium Chloride 1,000 ml @ 100 mls/hr Q10H IV Last administered on 10/18/16 03 :35; Start 10/17/16 at 18:00; Stop 10/18/16 at 07:06; Status DC Potassium Chloride (KCl Powder) 60 meq ONCE ONCE NG Last administered on 08:52; Start 10/18/16 at 09:00; Stop 10/18/16 at 09:01; Status DC Calcium Gluconate 1 gm/Sodium Chloride 110 ml @ 110 mls/hr UNSCH PRN IV For Protein Corrected Calcium Last administered on 10/18/16 10:22; Start 10/18/16 at 09:45; Stop 12/27/16 at 11:31; Status DC Gentamicin Sulfate (Gentamicin Inj) 240 mg STK-MED ONCE IRRIGATION ; Start 10/07 at 12:00; Stop 10/18/16 at 12:13; Status DC Thrombin (Thrombin Top Soln) 5,000 units STK-MED ONCE TOPICAL ; Start 10/07/16 at 12:00; Stop 10/18/16 at 12:13; Status DC Gelatin (Gelfoam 100 Top) 1 foam STK-MED ONCE OTHER ; Start 10/07/16 at 12:00; Stop 10/18/16 at 12:13; Status DC Propofol (Diprivan 200 Mg/20 ml Inj) 200 mg STK-MED ONCE IV ; Start 10/07/16 at 12:00; Stop 10/18/16 at 12:16; Status DC Ephedrine Sulfate (ePHEDrine/NS 25 MG/5 ML SYR) 25 mg STK-MED ONCE IV ; Start at 12:00; Stop 10/18/16 at 12:16; Status DC Phenylephrine HCl (Neosynephrine/ NS 1000 Mcg/10ml Syr) 1,000 mcg STK-MED ONCE IV ; Start 10/07/16 at 12:00; Stop 10/18/16 at 12:16; Status DC Lactated Ringer's 1,000 ml @ As Directed STK-MED ONCE IV ; Start 10/07/16 at 12 :00; Stop 10/18/16 at 12:16; Status DC Milrinone Lactate 20 mg/Sodium Chloride 100 ml @ 12.42 mls/ hr Q8H4M IV Last administered on 10/22/16 09:23; Start 10/18/16 at 16:21; Stop 10/22/16 at 19:37; Status DC Lansoprazole (Prevacid Odt) 30 mg DAILY NG Last administered on 12/16/16 08:54 ; Start 10/20/16 at 09:00; Stop 12/16/16 at 15:01; Status DC Lansoprazole (Prevacid Odt) 30 mg ONCE ONCE NG Last administered on 10/19/16 12:11; Start 10/19/16 at 12:00; Stop 10/19/16 at 12:02; Status DC Sodium Chloride (NS Flush) 2 ml UNSCH PRN IV FLUSH FLUSH AFTER USING IV ACCESS ; Start 10/19/16 at 09:45; Stop 12/27/16 at 11:24; Status DC Sodium Chloride (NS Flush) 2 ml BID IV FLUSH Last administered on 12/26/16 22 :03; Start 10/19/16 at 21:00; Stop 12/27/16 at 11:24; Status DC Artificial Tears (Tears Naturale Opth Soln) 1 drop TID EACH EYE Last administered on 01/20/17 08:23; Start 10/19/16 at 13:00 Ondansetron HCl (Zofran Inj) 4 mg Q6H PRN IV NAUSEA OR VOMITING; Start 10/19/16 at 09:45; Status UNV Albuterol/ Ipratropium (Duoneb Neb) 1 ampule Q6HR NEB INH Last administered on 10/23/16 08:36; Start 10/19/16 at 12:00; Stop 10/23/16 at 11:59; Status DC Albuterol Sulfate (Albuterol Neb) 2.5 mg Q2HR NEB PRN INH SOB/WHEEZING Last administered on 11/22/16 22:09; Start 10/19/16 at 09:45 Miscellaneous Information 1 [id number] ; Start 10/19/16 at 09:45; Stop 01/13/17 at 12:47; Status DC Chlorhexidine Gluconate (Chlorhexidine 2% Cloth) Taper DAILY@04 TOP Last administered on 12/24/16 04:00; Start 10/20/16 at 04:00; Stop 01/13/17 at 12:47 ; Status DC Chlorhexidine Gluconate (Chlorhexidine 2% Cloth) 3 pack UNSCH PRN TOP HYGIENIC CARE; Start 10/19/16 at 09:45; Stop 01/13/17 at 12:47; Status DC Docusate Sodium (Colace Liq) 100 mg Q12HR PO Last administered on 10/30/16 07: 55; Start 10/19/16 at 21:00; Stop 10/31/16 at 10:47; Status DC Sennosides (Senna Liq) 8.8 mg BID PO Last administered on 10/29/16 20:15; Start 10/19/16 at 21:00; Stop 10/31/16 at 10:47; Status DC Polyethylene Glycol (Miralax) 17 gm BID OG-TUBE Last administered on 10/29/16 20:15; Start 10/19/16 at 21:00; Stop 10/31/16 at 10:47; Status DC Pharmacy Profile Note 0 ml @ 0 mls/hr UNSCH OTHER ; Start 10/19/16 at 10:15; Stop 10/24/16 at 11:41; Status DC Piperacillin Sod/ Tazobactam Sod 100 ml @ 200 mls/hr Q6H IV Last administered on 10/23/16 05:39; Start 10/19/16 at 12:00; Stop 10/23/16 at 09:43; Status DC Vancomycin HCl 1500 mg/Sodium Chloride 515 ml @ 257.5 mls/ hr Q8H IV Last administered on 10/22/16 04:38; Start 10/19/16 at 13:00; Stop 10/22/16 at 13:55; Status DC Miscellaneous Information SPECIFIC LAB TO BE DRAWN:VANCOMYCIN TROUGH DATE TO... ONCE ONCE .XX Last administered on 10/20/16 12:45; Start 10/20/16 at 12:45; Stop 10/20/16 at 12:46; Status DC Verapamil HCl (Isoptin Inj) 5 mg STK-MED ONCE .ROUTE ; Start 10/19/16 at 12:44; Stop 10/19/16 at 12:45; Status DC Verapamil HCl (Isoptin Inj) 15 mg STK-MED ONCE .ROUTE ; Start 10/19/16 at 12:44; Stop 10/19/16 at 12:45; Status DC Iodixanol (VISIPAQUE 320 INJ (Rad Spec)) 30 ml STK-MED ONCE I-ARTERIAL Last administered on 10/19/16 13:50; Start 10/19/16 at 14:05; Stop 10/19/16 at 14:06; Status DC Lactulose (Lactulose Liq) 30 ml BID OG-TUBE Last administered on 10/31/16 20: 30; Start 10/20/16 at 21:00; Stop 11/01/16 at 07:51; Status DC Mineral Oil (Kondremul Liq) 30 ml ONCE ONCE PO ; Start 10/20/16 at 09:15; Stop 10/20/16 at 09:16; Status Cancel Methylnaltrexone Meridian (Relistor Inj) 12 mg ONCE ONCE SQ Last administered on 10/20/16 14:17; Start 10/20/16 at 09:15; Stop 10/20/16 at 09:39; Status DC Insulin Aspart (NovoLOG SUPPLEMENTAL SCALE) 1 Q4HR SQ Last administered on 10/27 11:57; Start 10/20/16 at 12:00; Stop 11/03/16 at 12:42; Status DC Multivitamins 10 ml/Folic Acid 1 mg/Amino Acids/ Electrolytes/ Dextrose 2,010.2 ml @ 30 mls/hr Q24H IV-CENTRAL Last administered on 10/28/16 20:01; Start 10/20/16 at 20:00; Stop 10/31/16 at 10:47; Status DC Fat Emulsion Intravenous 250 ml @ 10 mls/hr Q24H IV-CENTRAL Last administered on 10/29/16 19:58; Start 10/20/16 at 20:00; Stop 10/31/16 at 10:47; Status DC Mineral Oil (Mineral Oil Liq) 30 ml ONCE ONCE PO ; Start 10/20/16 at 14:00; Stop 10/20/16 at 14:01; Status Cancel Mineral Oil (Mineral Oil Liq) 30 ml ONCE ONCE PO Last administered on 15:32; Start 10/20/16 at 14:00; Stop 10/20/16 at 14:01; Status DC Potassium Phosphate 30 mmol/ Sodium Chloride 260 ml @ 43.333 mls/ hr ONCE ONCE IV ; Start 10/20/16 at 18:00; Stop 10/20/16 at 23:59; Status DC Potassium Chloride 100 ml @ 25 mls/hr BOLUS ONCE IV Last administered on 17:17; Start 10/20/16 at 17:00; Stop 10/20/16 at 20:59; Status DC Miscellaneous Information SPECIFIC LAB TO BE LI... ONCE ONCE .XX Last administered on 10/22/16 12:45; Start 10/22/16 at 12:45; Stop 10/22/16 at 12:46; Status DC Diltiazem HCl 125 mg/Sodium Chloride 125 ml @ 5 mls/hr TITRATE PRN IV Tachycardia Last administered on 10/27/16 08:13; Start 10/22/16 at 10:30; Stop 10/28/16 at 18:49; Status DC Hydrocortisone Sodium Succinate (SoluCORTEF INJ) 75 mg Q8H IV PUSH Last administered on 10/24/16 04:05; Start 10/22/16 at 12:00; Stop 10/24/16 at 09:40 ; Status DC Milrinone Lactate 20 mg/Sodium Chloride 100 ml @ 9.79 mls/hr [id number] IV Last administered on 10/30/16 03:35; Start 10/22/16 at 10:23; Stop 11/01/16 at 07:51 ; Status DC Furosemide (Lasix Inj) 40 mg NOW ONCE IV PUSH Last administered on 10/22/16 14 :46; Start 10/22/16 at 14:30; Stop 10/22/16 at 14:31; Status DC Furosemide 100 mg/ Sodium Chloride 100 ml @ 10 mls/hr CONTINUOUS IV Last administered on 10/24/16 01:16; Start 10/22/16 at 15:00; Stop 10/24/16 at 11:17 ; Status DC Vancomycin HCl 1500 mg/Sodium Chloride 515 ml @ 257.5 mls/ hr Q12H IV Last administered on 10/23/16 08:32; Start 10/23/16 at 09:00; Stop 10/23/16 at 09:43 ; Status DC Potassium Chloride 100 ml @ 25 mls/hr Q4H IV Last administered on 10/22/16 18: 05; Start 10/22/16 at 15:00; Stop 10/22/16 at 22:59; Status DC Miscellaneous Information SPECIFIC LAB TO BE LI... ONCE ONCE .XX ; Start 10/25 at 08:45; Stop 10/25/16 at 08:45; Status DC Potassium Chloride 100 ml @ 25 mls/hr Q4H IV Last administered on 10/23/16 19 :46; Start 10/23/16 at 18:30; Stop 10/24/16 at 02:29; Status DC Hydrocortisone Sodium Succinate (SoluCORTEF INJ) 50 mg Q12H IV PUSH Last administered on 10/25/16 04:42; Start 10/24/16 at 16:00; Stop 10/25/16 at 08:37 ; Status DC Insulin Detemir (Levemir Inj) 12 units Q12HR SQ Last administered on 10/28/16 09:23; Start 10/24/16 at 09:45; Stop 10/28/16 at 18:30; Status DC Furosemide 100 mg/ Sodium Chloride 100 ml @ 5 mls/hr CONTINUOUS IV Last administered on 10/27/16 08:12; Start 10/24/16 at 12:00; Stop 10/27/16 at 08:59 ; Status DC Hydrocortisone Sodium Succinate (SoluCORTEF INJ) 25 mg Q12H IV PUSH Last administered on 10/27/16 04:14; Start 10/25/16 at 16:00; Stop 10/27/16 at 08:59 ; Status DC Acetazolamide Sodium (Diamox Inj) 500 mg DAILY IV PUSH Last administered on 08:15; Start 10/25/16 at 09:00; Stop 10/28/16 at 03:25; Status DC Phenytoin Sodium (Dilantin Inj) 100 mg Q8HR IV Last administered on 11/01/16 05:30; Start 10/25/16 at 22:00; Stop 11/01/16 at 07:52; Status DC Furosemide (Lasix Inj) 40 mg DAILY IV PUSH Last administered on 11/09/16 09:11 ; Start 10/28/16 at 09:00; Stop 11/09/16 at 10:18; Status DC Sodium Chloride 1,000 ml @ 30 mls/hr Q24H IV Last administered on 10/28/16 19 :30; Start 10/28/16 at 05:45; Stop 10/29/16 at 11:49; Status DC Dextrose (D50w (Syr) Inj) 50 ml STK-MED ONCE .ROUTE ; Start 10/28/16 at 17:41; Stop 10/28/16 at 17:42; Status DC Insulin Detemir (Levemir Inj) 8 units Q12HR SQ Last administered on 10/29/16 08:28; Start 10/28/16 at 21:00; Stop 11/01/16 at 14:52; Status DC Protein (Beneprotein Powder) 1 pack TID G-TUBE Last administered on 12/14/16 12:08; Start 10/29/16 at 13:00; Stop 12/14/16 at 13:57; Status DC Diltiazem HCl (Cardizem) 60 mg Q6HR PO Last administered on 11/02/16 04:46; Start 10/29/16 at 13:00; Stop 11/02/16 at 07:19; Status DC Levetriacetam (Keppra Liq) 500 mg Q12HR NG Last administered on 12/26/16 22: 02; Start 10/31/16 at 21:00; Stop 12/27/16 at 15:58; Status DC Cisatracurium Besylate (Nimbex Inj) 20 mg ONCE ONCE IV ; Start 11/01/16 at 07: 45; Stop 11/01/16 at 07:55; Status DC Midazolam HCl (Versed Inj) 10 mg ONCE ONCE IV PUSH Last administered on 11:36; Start 11/01/16 at 07:45; Stop 11/01/16 at 07:53; Status DC Fentanyl Citrate (fentaNYL INJ) 250 mcg ONCE ONCE IV PUSH Last administered on 11/01/16 11:37; Start 11/01/16 at 07:45; Stop 11/01/16 at 07:53; Status DC Lactulose (Lactulose Liq) 30 ml QID OG-TUBE Last administered on 11/11/16 12: 28; Start 11/01/16 at 09:00; Stop 11/12/16 at 08:36; Status DC Phenytoin (Dilantin Liq) 100 mg Q8HR PO Last administered on 11/06/16 06:34; Start 11/01/16 at 14:00; Stop 11/06/16 at 12:28; Status DC Cisatracurium Besylate (Nimbex Inj) 20 mg ONCE ONCE IV Last administered on 11:36; Start 11/01/16 at 09:15; Stop 11/01/16 at 09:16; Status DC Oxycodone HCl (Roxicodone Intensol Liq) 10 mg Q4H PRN PO pain 1-6 Last administered on 11/11/16 02:28; Start 11/01/16 at 15:00; Stop 11/24/16 at 11: 19; Status DC Hydromorphone HCl (Dilaudid Pf Inj) 0.5 mg Q4H PRN IV PUSH pain 7-10 or not taking po Last administered on 11/19/16 01:42; Start 11/01/16 at 15:00; Stop 11/29/16 at 12:24; Status DC Haloperidol Lactate (Haldol Inj) 5 mg Q4H PRN IV PUSH agitation; Start at 15:00; Stop 11/29/16 at 14:45; Status DC Melatonin (Melatonin) 5 mg HS PO Last administered on 01/19/17 20:06; Start at 21:00 Diltiazem HCl (Cardizem) 90 mg Q6HR PO Last administered on 01/20/17 05:18; Start 11/02/16 at 12:00 Pharmacy Profile Note 0 ml @ 0 mls/hr UNSCH OTHER ; Start 11/02/16 at 15:30; Stop 11/06/16 at 15:48; Status DC Vancomycin HCl 1250 mg/Sodium Chloride 262.5 ml @ 250 mls/hr Q8H IV Last administered on 11/04/16 02:20; Start 11/02/16 at 18:00; Stop 11/05/16 at 16:14 ; Status DC Cefepime HCl 2000 mg/Sodium Chloride 100 ml @ 200 mls/hr Q8H IV Last administered on 11/06/16 08:42; Start 11/02/16 at 17:00; Stop 11/06/16 at 15:48 ; Status DC Metronidazole 100 ml @ 100 mls/hr Q6H IV Last administered on 11/04/16 09:26 ; Start 11/02/16 at 16:00; Stop 11/04/16 at 11:21; Status DC Miscellaneous Information SPECIFIC LAB TO BE DRAWN:VANCOMYCIN TROUGH DATE TO... ONCE ONCE .XX ; Start 11/03/16 at 17:45; Stop 11/03/16 at 17:46; Status DC Insulin Aspart (NovoLOG SUPPLEMENTAL SCALE) 1 Q12H SQ Last administered on 11/04 00:42; Start 11/03/16 at 12:00; Stop 11/12/16 at 08:40; Status DC Potassium Chloride 100 ml @ 50 mls/hr Q2H IV ; Start 11/03/16 at 15:00; Stop at 16:58; Status DC Miscellaneous Information SPECIFIC LAB TO BE DRAWN:VANCOMYCIN TROUGH DATE TO... ONCE ONCE .XX Last administered on 11/04/16 01:45; Start 11/04/16 at 01:45; Stop 11/04/16 at 01:46; Status DC Sodium Chloride 1,000 ml @ 84 mls/hr [id number] IV Last administered on 13:02; Start 11/04/16 at 11:15; Stop 11/05/16 at 11:14; Status DC Vancomycin HCl 1250 mg/Sodium Chloride 262.5 ml @ 250 mls/hr Q12H IV Last administered on 11/06/16 06:34; Start 11/05/16 at 18:00; Stop 11/06/16 at 15:48 ; Status DC Miscellaneous Information SPECIFIC LAB TO BE LI... ONCE ONCE .XX ; Start 11/07 at 05:45; Stop 11/07/16 at 05:45; Status DC Aztreonam 1000 mg/ Sodium Chloride 100 ml @ 200 mls/hr Q8H IV Last administered on 11/08/16 08:00; Start 11/06/16 at 16:00; Stop 11/08/16 at 12:55 ; Status DC Lactobacillus Acidophilus (Lactinex) 1 tab TID PO Last administered on 12:16; Start 11/06/16 at 18:00; Stop 12/14/16 at 13:57; Status DC Fluconazole (Diflucan) 100 mg DAILY PO Last administered on 11/16/16 09:23; Start 11/06/16 at 16:00; Stop 11/16/16 at 13:20; Status DC Norepinephrine Bitartrate (Levophed Inj) 4 mg STK-MED ONCE .ROUTE ; Start at 02:02; Stop 11/07/16 at 02:03; Status DC Chlorhexidine Gluconate (Hibiclens 4% Top Soln) 1 applic HS TOP Last administered on 11/07/16 23:28; Start 11/07/16 at 21:00; Stop 11/08/16 at 09:58 ; Status DC Prednisone (Deltasone) 20 mg BID PO Last administered on 11/09/16 21:08; Start 11/08/16 at 13:00; Stop 11/09/16 at 21:01; Status DC Levofloxacin (Levaquin) 750 mg DAILY PO Last administered on 11/15/16 08:23; Start 11/08/16 at 13:00; Stop 11/15/16 at 12:59; Status DC Furosemide (Lasix Liq) 20 mg DAILY NG Last administered on 12/01/16 08:38; Start 11/09/16 at 10:30; Stop 12/02/16 at 09:49; Status DC Cefazolin Sodium 1000 mg/Sodium Chloride 100 ml @ 200 mls/hr NOW ONCE IV ; Start 11/12/16 at 15:30; Stop 11/12/16 at 15:59; Status DC Water (Free Water) 200 ml Q6HR G-TUBE Last administered on 11/15/16 18:00; Start 11/14/16 at 18:45; Stop 11/15/16 at 18:50; Status DC Potassium Bicarb/ Potassium Chloride (K-Lyte Cl Eff) 50 meq NOW ONCE PO Last administered on 11/15/16 10:44; Start 11/15/16 at 08:30; Stop 11/15/16 at 08:31 ; Status DC Water (Free Water) 300 ml Q4HR G-TUBE Last administered on 11/20/16 16:00; Start 11/15/16 at 20:00; Stop 11/21/16 at 20:04; Status DC Acetylcysteine (Mucomyst 20% Neb) 2 ml Q6HR NEB NEB Last administered on 04:24; Start 11/16/16 at 10:00; Stop 11/20/16 at 09:59; Status DC Albuterol/ Ipratropium (Duoneb Neb) 1 ampule Q6HR NEB NEB Last administered on 11/20/16 08:04; Start 11/16/16 at 10:00; Stop 11/20/16 at 09:59; Status DC Metoclopramide HCl (Reglan Inj) 10 mg Q8H IV PUSH Last administered on 09:40; Start 11/18/16 at 02:00; Stop 12/02/16 at 09:51; Status DC Ondansetron HCl (Zofran Inj) 4 mg Q6H PRN IV PUSH nausea; Start 11/18/16 at 01: 45; Stop 12/27/16 at 11:33; Status DC Sodium Chloride 1,000 ml @ 999 mls/hr BOLUS ONCE IV Last administered on 11/18 01:58; Start 11/18/16 at 02:00; Stop 11/18/16 at 03:00; Status DC Bacitracin (Baciguent Oint) 1 applic Q12HR TOPICAL Last administered on 08:23; Start 11/18/16 at 11:00 Levofloxacin (Levaquin) 750 mg DAILY PO Last administered on 11/25/16 09:19; Start 11/18/16 at 12:00; Stop 11/25/16 at 11:59; Status DC Sodium Chloride 1,000 ml @ 75 mls/hr [id number] IV Last administered on 01:08; Start 11/18/16 at 13:00; Stop 11/19/16 at 12:59; Status DC Protein (Beneprotein Powder) 1 pack TID G-TUBE Last administered on 01/10/17 18:00; Start 11/19/16 at 09:00; Stop 01/13/17 at 12:47; Status DC Water (Free Water) VOLUME OF WATER: 200 ML Q6HR G-TUBE Last administered on 18:00; Start 11/22/16 at 00:00; Stop 11/26/16 at 18:43; Status DC Albuterol/ Ipratropium (Duoneb Neb) 1 ampule QID NEB NEB Last administered on 11/27/16 11:55; Start 11/23/16 at 16:00; Stop 11/27/16 at 15:59; Status DC Povidone Iodine (Betadine 10% Oint) 1 applic DAILY TOPICAL Last administered on 12/23/16 09:00; Start 11/24/16 at 09:00; Stop 12/24/16 at 12:51; Status DC Oxycodone HCl (Roxicodone Intensol Liq) 10 mg Q4H PRN PO PAIN SCALE 1 TO 6; Start 11/24/16 at 11:30; Stop 11/29/16 at 14:38; Status DC Midazolam HCl (Versed Inj) 5 mg STK-MED ONCE .ROUTE Last administered on 16:24; Start 11/26/16 at 16:24; Stop 11/26/16 at 16:25; Status DC Rocuronium Meridian (Zemuron Inj) 100 mg STK-MED ONCE .ROUTE Last administered on 11/26/16 18:19; Start 11/26/16 at 16:24; Stop 11/26/16 at 16:25; Status DC Propofol 50 ml @ As Directed STK-MED ONCE .ROUTE Last administered on 18:29; Start 11/26/16 at 16:53; Stop 11/26/16 at 16:54; Status DC Chlorhexidine Gluconate (Peridex 0.12% Liq) 15 ml BID@08,20 MT Last administered on 01/20/17 08:00; Start 11/26/16 at 20:00 Propofol 100 ml @ 1.668 mls/ hr TITRATE PRN IV SEDATION Last administered on 11/26/16 21:29; Start 11/26/16 at 18:45; Stop 12/12/16 at 16:47; Status DC Fentanyl Citrate (fentaNYL INJ) 100 mcg Q1H PRN IV PUSH any pain; Start at 18:45; Stop 11/29/16 at 14:38; Status DC Fentanyl Citrate 250 ml @ 5 mls/hr TITRATE PRN IV SEDATION Last administered on 11/29/16 06:30; Start 11/26/16 at 18:45; Stop 12/12/16 at 16:47; Status DC Propofol 50 ml @ As Directed STK-MED ONCE .ROUTE Last administered on 18:47; Start 11/26/16 at 18:43; Stop 11/26/16 at 18:44; Status DC Cisatracurium Besylate (Nimbex Inj) 11 mg ONCE ONCE IV PUSH Last administered on 11/26/16 19:30; Start 11/26/16 at 18:45; Stop 11/26/16 at 18:50; Status DC Cisatracurium Besylate 100 mg/ Sodium Chloride 260 ml @ 8.67 mls/hr TITRATE PRN IV TOF 1/4 Last administered on 11/28/16 06:25; Start 11/26/16 at 18:45; Stop 11/28/16 at 10:46; Status DC Epinephrine HCl (EPINEPHrine (1:10,000) INJ) 1 mg STK-MED ONCE .ROUTE ; Start 11/26/16 at 20:06; Stop 11/26/16 at 20:07; Status DC Atropine Sulfate (Atropine Inj) 1 mg STK-MED ONCE .ROUTE ; Start 11/26/16 at 20 :06; Stop 11/26/16 at 20:07; Status DC Lidocaine HCl (Xylocaine 2% Inj) 100 mg STK-MED ONCE .ROUTE ; Start 11/26/16 at 20:07; Stop 11/26/16 at 20:08; Status DC Iohexol (Omnipaque 350 Inj) 95 ml STK-MED ONCE IVCONTRAST Last administered on 11/26/16 20:20; Start 11/26/16 at 20:20; Stop 11/26/16 at 20:21; Status DC Lactated Ringer's 1,000 ml @ 84 mls/hr [id number] IV ; Start 11/26/16 at 23:00; Stop 11/27/16 at 01:37; Status DC Sodium Chloride 500 ml @ 50 mls/hr Q10H IV Last administered on 11/27/16 01: 50; Start 11/27/16 at 01:45; Stop 11/27/16 at 11:44; Status DC Midazolam HCl 100 ml @ 2 mls/hr TITRATE PRN IV SEDATION Last administered on 22:12; Start 11/27/16 at 01:45; Stop 11/29/16 at 14:45; Status DC Midazolam HCl (Versed Inj) 2 mg Q15M PRN IV PUSH SEDATION; Start 11/27/16 at 01:45; Stop 11/29/16 at 14:45; Status DC Lactated Ringer's 1,000 ml @ 84 mls/hr [id number] IV Last administered on 01:17; Start 11/27/16 at 03:15; Stop 12/02/16 at 07:00; Status DC Cisatracurium Besylate 100 mg/ Sodium Chloride 250 ml @ 8.34 mls/hr TITRATE PRN IV TOF 1/4 Last administered on 11/28/16 11:11; Start 11/28/16 at 11:00; Stop 11/28/16 at 14:11; Status DC Sodium Chloride 250 ml @ 15 mls/hr ONCE ONCE IV Last administered on 11:15; Start 11/28/16 at 11:15; Stop 11/29/16 at 03:54; Status DC Epinephrine HCl (EPINEPHrine (1:10,000) INJ) 1 mg STK-MED ONCE .ROUTE ; Start 11/29/16 at 04:20; Stop 11/29/16 at 04:21; Status DC Atropine Sulfate (Atropine Inj) 1 mg STK-MED ONCE .ROUTE ; Start 11/29/16 at 04 :20; Stop 11/29/16 at 04:21; Status DC Lidocaine HCl (Xylocaine 2% Inj) 100 mg STK-MED ONCE .ROUTE ; Start 11/29/16 at 04:20; Stop 11/29/16 at 04:21; Status DC Iohexol (Omnipaque 350 Inj) 70 ml STK-MED ONCE IVCONTRAST Last administered on 11/29/16 05:14; Start 11/29/16 at 05:14; Stop 11/29/16 at 05:15; Status DC Epinephrine HCl (EPINEPHrine (1:10,000) INJ) 1 mg STK-MED ONCE .ROUTE ; Start 11/29/16 at 06:45; Stop 11/29/16 at 06:46; Status DC Epinephrine HCl (EPINEPHrine (1:10,000) INJ) 4 mg STK-MED ONCE .ROUTE ; Start 11/29/16 at 06:48; Stop 11/29/16 at 06:49; Status DC Hydromorphone HCl (Dilaudid Pf Inj) 0.5 mg Q4H PRN IV PUSH pain 7-10 or not taking po; Start 11/29/16 at 12:30; Stop 11/29/16 at 14:38; Status DC Rocuronium Meridian (Zemuron Inj) 50 mg STK-MED ONCE .ROUTE Last administered on 11/29/16 12:51; Start 11/29/16 at 12:51; Stop 11/29/16 at 12:52; Status DC Rocuronium Meridian (Zemuron Inj) 50 mg STK-MED ONCE .ROUTE Last administered on 11/29/16 13:30; Start 11/29/16 at 13:30; Stop 11/29/16 at 13:31; Status DC Collagenase (Santyl Oint) 1 applic DAILY TOPICAL Last administered on 09:03; Start 11/30/16 at 12:00; Stop 01/17/17 at 08:46; Status DC Albuterol/ Ipratropium (Duoneb Neb) 1 ampule Q6HR NEB NEB Last administered on 12/04/16 09:06; Start 11/30/16 at 16:00; Stop 12/04/16 at 09:12; Status DC Dextrose (D50w (Vial) Inj) 50 ml UNSCH PRN IV PUSH HYPOGLYCEMIA-SEE COMMENTS; Start 11/30/16 at 12:15; Stop 12/02/16 at 19:38; Status DC Glucagon (Glucagon Inj) 1 mg UNSCH PRN OTHER HYPOGLYCEMIA-SEE COMMENTS; Start 11/30/16 at 12:15; Stop 12/02/16 at 19:38; Status DC Insulin Human Regular (NovoLIN R SUPPLEMENTAL SCALE) 1 ACHS SLIDING SCALE SQ ; Start 11/30/16 at 17:00; Stop 12/02/16 at 09:49; Status DC Acetaminophen (Tylenol) 650 mg Q4H PRN PO PAIN OR TEMP >100.4 Last administered on 12/20/16 14:32; Start 11/30/16 at 13:15; Stop 12/27/16 at 11: 35; Status DC Magnesium Sulfate/ Dextrose 100 ml @ 100 mls/hr Q1H IV Last administered on 16:52; Start 12/01/16 at 14:00; Stop 12/01/16 at 15:59; Status DC Potassium Chloride (KCl Powder) 20 meq ONCE ONCE PO ; Start 12/01/16 at 14:00 ; Stop 12/01/16 at 14:01; Status DC Fentanyl Citrate (fentaNYL INJ) 200 mcg STK-MED ONCE .ROUTE Last administered on 12/01/16 15:00; Start 12/01/16 at 14:45; Stop 12/01/16 at 14:46; Status DC Midazolam HCl (Versed Inj) 4 mg STK-MED ONCE .ROUTE Last administered on 15:00; Start 12/01/16 at 14:45; Stop 12/01/16 at 14:46; Status DC Fentanyl Citrate (fentaNYL INJ) 100 mcg STK-MED ONCE .ROUTE Last administered on 12/01/16 15:55; Start 12/01/16 at 15:53; Stop 12/01/16 at 15:54; Status DC Midazolam HCl (Versed Inj) 2 mg STK-MED ONCE .ROUTE Last administered on 16:00; Start 12/01/16 at 15:53; Stop 12/01/16 at 15:54; Status DC Cefazolin Sodium/ Dextrose 50 ml @ As Directed STK-MED ONCE .ROUTE Last administered on 12/01/16 16:00; Start 12/01/16 at 16:03; Stop 12/01/16 at 16 :04; Status DC Iodixanol (VISIPAQUE 320 INJ (Rad Spec)) 65 ml STK-MED ONCE I-ARTERIAL Last administered on 12/01/16 16:15; Start 12/02/16 at 08:47; Stop 12/02/16 at 08 :51; Status DC Potassium Chloride (KCl Powder) 20 meq ONCE ONCE PO ; Start 12/02/16 at 10:00 ; Stop 12/02/16 at 10:02; Status DC Insulin Human Regular (NovoLIN R SUPPLEMENTAL SCALE) 1 Q6HR SQ ; Start at 12:00; Stop 12/02/16 at 19:38; Status DC Magnesium Sulfate/ Dextrose 100 ml @ 100 mls/hr ONCE ONCE IV Last administered on 12/02/16 11:11; Start 12/02/16 at 10:00; Stop 12/02/16 at 10 :59; Status DC Metoclopramide HCl (Reglan Inj) 5 mg Q8H IV PUSH Last administered on 02:28; Start 12/02/16 at 18:00; Stop 12/12/16 at 16:47; Status DC Racepinephrine (Racepinephrine 2.25% Neb) 0.5 ml Q4HR NEB PRN NEB hemoptysis/ stridor; Start 12/03/16 at 15:00; Stop 01/13/17 at 12:47; Status DC Albuterol/ Ipratropium (Duoneb Neb) 1 ampule Q6HR NEB NEB Last administered on 12/08/16 01:13; Start 12/04/16 at 10:00; Stop 12/08/16 at 09:59; Status DC Nitroglycerin (Nitroglycerin 2% Oint) 2 inch Q6H PRN TOPICAL SBP>160, DBP>90; Start 12/04/16 at 09:15 Clonidine (Catapres) 0.1 mg Q8H PO Last administered on 01/10/17 01:22; Start 12/04/16 at 10:00; Stop 01/10/17 at 16:51; Status DC Hydralazine HCl (Apresoline Inj) 10 mg Q1H PRN IV PUSH SBP>160, DBP>90 Last administered on 12/04/16 12:39; Start 12/04/16 at 09:15; Stop 12/16/16 at 15: 01; Status DC Labetalol HCl (Trandate Inj) 10 mg Q1H PRN IV PUSH SBP>160, DBP>90, HR>65; Start 12/04/16 at 09:15; Stop 12/16/16 at 15:01; Status DC Enalaprilat (Vasotec Inj) 1.25 mg Q6H PRN IV PUSH SBP>160, DBP>90; Start 12/04 at 09:15 Sodium Chloride (NS Flush) DAILY IV FLUSH Last administered on 01/09/17 09: 19; Start 12/04/16 at 18:00; Stop 01/13/17 at 12:47; Status DC Sodium Chloride (NS Flush) UNSCH PRN IV FLUSH SEE PROTOCOL; Start 12/04/16 at 18:00; Stop 01/13/17 at 12:47; Status DC Loperamide HCl (Imodium Liq) 2 mg UNSCH PRN PO DIARRHEA; Start 12/14/16 at 10: 45 Lactobacillus Acidophilus (Lactinex) 1 tab TID PO Last administered on 08:22; Start 12/14/16 at 18:00 Famotidine (Pepcid) 20 mg BID PO Last administered on 01/20/17 08:22; Start 12/16/16 at 21:00 Ferrous Sulfate (Ferrous Sulfate) 325 mg BID@12,17 PO Last administered on 01/19 17:04; Start 12/22/16 at 12:00 Ascorbic Acid (Vitamin C) 500 mg BID PO Last administered on 01/20/17 08:22; Start 12/22/16 at 09:00 Chlorhexidine Gluconate (Hibiclens 4% Top Soln) 1 applic HS TOP Last administered on 12/26/16 21:00; Start 12/22/16 at 21:00; Stop 12/26/16 at 21: 01; Status DC Cefazolin Sodium/ Dextrose 50 ml @ 150 mls/hr ONCE ONCE IV Last administered on 12/27/16 08:15; Start 12/27/16 at 06:00; Stop 12/27/16 at 06:19; Status DC Lactated Ringer's 1,000 ml @ 30 mls/hr Q24H PRN IV SEE LABEL COMMENTS; Start 12/26/16 at 15:00; Stop 12/27/16 at 11:25; Status DC Sodium Chloride 500 ml @ 30 mls/hr [id number] PRN IV SEE LABEL COMMENTS; Start at 15:00; Stop 12/27/16 at 11:25; Status DC Metoprolol Tartrate (Lopressor) 25 mg COMMUNICATIONS ANALYST PRN PO SEE LABEL COMMENTS; Start 12/26/16 at 15:00; Stop 12/29/16 at 14:59; Status DC Povidone Iodine (Betadine 5% Antisepsis Kit) 1 applic COMMUNICATIONS ANALYST PRN EACH NARE SEE LABEL COMMENTS; Start 12/26/16 at 15:00; Stop 12/29/16 at 14:59; Status DC Chlorhexidine Gluconate (Chlorhexidine 2% Cloth) 3 pack COMMUNICATIONS ANALYST PRN TOPICAL SEE LABEL COMMENTS; Start 12/26/16 at 15:00; Stop 12/29/16 at 14:59; Status DC Insulin Human Regular (NovoLIN R INJ) See Protocol Table ... COMMUNICATIONS ANALYST PRN SQ SEE PROTOCOL TABLE; Start 12/26/16 at 15:00; Stop 12/29/16 at 14:59; Status DC Thrombin (Thrombin Top Soln) 10,000 units STK-MED ONCE .ROUTE Last administered on 12/27/16 10:00; Start 12/27/16 at 07:52; Stop 12/27/16 at 07 :53; Status DC Gelatin (Gelfoam 100 Top) 1 foam STK-MED ONCE .ROUTE Last administered on 12/27 10:00; Start 12/27/16 at 07:53; Stop 12/27/16 at 07:54; Status DC Gentamicin Sulfate (Gentamicin Inj) 240 mg STK-MED ONCE .ROUTE Last administered on 12/27/16 10:00; Start 12/27/16 at 07:53; Stop 12/27/16 at 07 :54; Status DC Lidocaine/ Epinephrine (Xylocaine-Epi 1%-1:100,000 Inj) 20 ml STK-MED ONCE .ROUTE Last administered on 12/27/16 10:00; Start 12/27/16 at 07:54; Stop 12/27/16 at 07:55; Status DC Acetaminophen 100 ml @ As Directed STK-MED ONCE IV ; Start 12/27/16 at 07:57; Stop 12/27/16 at 07:58; Status DC Artificial Tears (Lacrilube Opht Oint) 3.5 applic STK-MED ONCE .ROUTE ; Start 12/27/16 at 07:58; Stop 12/27/16 at 07:59; Status DC Levetriacetam (Keppra Inj) 500 mg STK-MED ONCE IV Last administered on 10:10; Start 12/27/16 at 10:06; Stop 12/27/16 at 10:07; Status DC Potassium Chloride/Sodium Chloride 1,000 ml @ 100 mls/hr Q10H IV Last administered on 01/12/17 10:00; Start 12/27/16 at 11:17; Stop 01/12/17 at 11 :04; Status DC IV Flush (NS Flush) 2 ml UNSCH PRN IVF FLUSH AFTER USING IV ACCESS; Start at 11:30 IV Flush (NS Flush) 2 ml BID IVF Last administered on 01/13/17 08:44; Start 12/27/16 at 21:00; Stop 01/13/17 at 12:47; Status DC Cefazolin Sodium/ Dextrose 50 ml @ 100 mls/hr Q8H IV Last administered on 08:00; Start 12/27/16 at 16:00; Stop 12/28/16 at 08:29; Status DC Levetriacetam 500 mg/Sodium Chloride 105 ml @ 400 mls/hr Q12H IV ; Start 12/27 at 12:00; Status Cancel Bisacodyl (Dulcolax Supp) 10 mg DAILY PRN RECTAL CONSTIPATION; Start 12/27/16 at 11:30 Docusate Sodium (Colace) 100 mg BID PO Last administered on 01/20/17 08:22; Start 12/27/16 at 21:00 Pantoprazole Sodium (Protonix) 40 mg DAILY PO Last administered on 01/13/17 08 :44; Start 12/28/16 at 09:00; Stop 01/13/17 at 12:47; Status DC Pantoprazole Sodium (Protonix Inj) 40 mg DAILY IVP Last administered on 08:44; Start 12/28/16 at 09:00; Stop 01/13/17 at 12:43; Status DC Ondansetron HCl (Zofran Inj) 4 mg Q6H PRN IV PUSH NAUSEA OR VOMITING; Start at 11:30 Calcium Gluconate (Calcium Gluconate Inj) 1 gm UNSCH PRN IV SEE LABEL COMMENTS ; Start 12/27/16 at 11:30; Stop 12/27/16 at 11:31; Status DC Potassium Chloride 100 ml @ 50 mls/hr UNSCH PRN IV POTASSIUM LESS THAN 4; Start 12/27/16 at 11:30; Stop 01/10/17 at 16:51; Status DC Magnesium Sulfate 4 gm/Sodium Chloride 108 ml @ 108 mls/hr UNSCH PRN IV MAGNESIUM LESS THAN 2; Start 12/27/16 at 11:30; Stop 01/10/17 at 16:51; Status DC Acetaminophen/ Hydrocodone Bitart (Lasara 10-325 Mg) 1 tab Q4H PRN PO PAIN 1-5 WHEN TOLERATING PO Last administered on 12/30/16 05:54; Start 12/27/16 at 11: 30 Acetaminophen/ Hydrocodone Bitart (Lasara 10-325 Mg) 2 tab Q4H PRN PO PAIN 6-10 WHEN TOLERATING PO Last administered on 12/30/16 14:24; Start 12/27/16 at 11: 30 Morphine Sulfate (Morphine Inj) 2 mg Q2H PRN IV PUSH PAIN SCALE 1 TO 6 Last administered on 12/29/16 15:05; Start 12/27/16 at 11:30; Stop 01/13/17 at 12: 43; Status DC Morphine Sulfate (Morphine Inj) 4 mg Q2H PRN IV PUSH PAIN SCALE 7 TO 10 Last administered on 12/28/16 18:00; Start 12/27/16 at 11:30; Stop 01/13/17 at 12: 43; Status DC Acetaminophen (Tylenol) 650 mg Q4H PRN PO TEMPERATURE > 101.5 F; Start at 11:30 Meperidine HCl (*DEMEROL INJ PERIprocedural ONLY) 25 mg STK-MED ONCE .ROUTE Last administered on 12/27/16 11:21; Start 12/27/16 at 11:21; Stop 12/27/16 at 11:22; Status DC Calcium Gluconate 1 gm/Sodium Chloride 110 ml @ 110 mls/hr UNSCH PRN IV SEE LABEL COMMENT; Start 12/27/16 at 12:00; Stop 01/10/17 at 16:51; Status DC Miscellaneous Information ALL NURSING DEPARTME... UNSCH PRN .XX SEE LABEL COMMENTS; Start 12/27/16 at 11:45; Stop 12/28/16 at 11:44; Status DC Levetriacetam 500 mg/Sodium Chloride 105 ml @ 400 mls/hr Q12H IV ; Start 12/27 at 22:00; Status Cancel Levetriacetam (Keppra Liq) 500 mg Q12HR PEG Last administered on 01/13/17 08: 44; Start 12/27/16 at 21:00; Stop 01/13/17 at 12:47; Status DC Iohexol (Omnipaque 350 Inj) 85 ml STK-MED ONCE IVCONTRAST Last administered on 12/28/16 17:46; Start 12/28/16 at 17:46; Stop 12/28/16 at 17:47; Status DC Bacitracin (Bacitracin Oint Packet) 0.9 gm DAILY TOPICAL Last administered on 01/20/17t 08:23; Start 12/30/16 at 18:31 Date of Insertion: Dec 04, 2016 Line: Central Venous Catheter Side: Left Location: Internal, Jugular A/P Problem List: (1) Subarachnoid hemorrhage due to ruptured aneurysm ICD Code: I60.8 - Other nontraumatic subarachnoid hemorrhage (2) Subdural hematoma ICD Code: I62.00 - Nontraumatic subdural hemorrhage, unspecified (3) Intracranial aneurysm ICD Code: I67.1 - Cerebral aneurysm, nonruptured (4) Respiratory failure ICD Code: J96.90 - Respiratory failure, unspecified, unspecified whether with hypoxia or hypercapnia Status: Acute Assessment and Plan 1. Subdural Hematoma/duraplasty status post left frontotemporal parietal craniotomy 10/08. 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 Initiated . - 10/13 and 10/14 and 10/17) 10/19 left MCA territory vasospasm, status post successful verapamil treatment by IR with 20 mg verapamil - 10/17 CT brain - less hemisphere edema with herniation through left craniotomy site, improved. - Dr. Prery/neurosurgery. S/p left cranioplasty/bone flap 12/27/16. - Echocardiogram 10/14/16 revealed EF 40-45%. Septal hypokinesis. Moderate MR. Severe pulmonary hypertension with pulmonary artery pressures estimated 61 mmHg Limited Echo 11/06: LVEF 60-65%, Trivial mitral and tricuspid regurgitation, No vegetations noted. - On diltiazem's 90 mg by mouth every 6 hours and furosemide 20 mg daily. Monitor BP and if low hold meds. - neurologically stable and doing well, and continued PT and rehabilitation. - PT, OT, speech following. Patient had helmet. Respiratory failure, S/P tracheostomy. Resolved now satting well on Room air. Monitor O2 sat, O2 supplement to keep O2 sat > 94 - S/p Trach Dr. Sullivan/Dr. Collazo 11/01 #8 [place] - CT angiogram chest/neck revealed right centrilobular bleeding likely source right bronchial artery. Repeat CT chest 11/29no visualization of active bleeding.- Resolved - 12/01 - embolization of right bronchial artery by IR- no further bleeding from tracheostomy - Redo trach 11/[address] Sullivan[address]now trach has been removed. - continue neb treatment. - trach removed Lower extremity edema improved. Ultrasound Doppler reviewed and no DVT. Patient with high risk of bleeding and is not chemoprophylaxis at this time. Continue SCDs and teds for DVT prophylaxis. Ileus- Resolved Elevated transaminases Hyperammonemia protein caloric malnutrition-calorie count performed- chip mixer recommendations noted; - tube feeding on hold- will leave the PEG in place and continue to monitor. -chip mixer following. Right occlusive subclavian, axillary and bilateral superficial cephalic thrombus - limited Echo to evaluate vegetation-neg. 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 Cardizem PO currently and 90 mg every 6 hours (for digital ischemia, Raynaud's) - Continue bacitracin twice a day to affected areas - We'll need to be started on systemic anticoagulation at some point however with recent embolization for hemoptysis holding full anticoagulation at this time. - evaluated by vascular surgery and no interventions recommended at this time. sacral ulcer - ABD dressing with [employer]- staff nurse makes sure to keep area dry. Wound care also consulted. appreciate recommendations. - Turn position every 2 hours - Out of bed to chair activity Course of hospitalization complications Acute hypoxic Respiratory failure secondary to mucous plugging- Resolved Possible healthcare associated pneumonia, Septic Shock- resolved. ARDS - resolved Noncardiogenic/neurogenic pulmonary edema- resolved. Massive Hemoptysis - resolved Aspiration pneumonitis - resolved Cerebral Salt Wasting/SIADH-resolved now hypernatremic - Creatinine currently within normal limits -> resolved. - Monitor urine output Septic and cardiogenic shock- resolved. LV dysfunction secondary to SAH - persistent, now resolved Elevated troponin- secondary to SAH, unlikely to be ACS. - resolved. Pulmonary hypertension s/p PEA arrest 11/28 after ETT dislodgement, hypoxic arrest DVT prop SCD, no chemoprophylaxis secondary to risk for bleeding. Problem Qualifiers (1) Respiratory failure: Qualified Codes: J96.00 - Acute respiratory failure, unspecified whether with hypoxia or hypercapnia Kristina Juárez MD Jan 20, 2017 10:55
[2017-01-20] MEDS: FERROUS SULFATE 325 MG (65 MG ELEMENTAL IRON) TAB PO SCH ×2 (13:43→17:03)
[2017-01-20] MEDS: MELATONIN 5 MG TAB PO SCH (20:34)
[2017-01-21] VITALS: BP 118/76; PULSE 69; RESP 18; TEMP 98.3; O2SAT 97
[2017-01-21] MEDS: DILTIAZEM HCL 90 MG TAB PO SCH ×4 (00:04→16:29)
[2017-01-21 06:25] VITALS: BP 119/75; PULSE 64; RESP 18; TEMP 98.1; O2SAT 97
[2017-01-21 08:00] VITALS: BP 128/78; PULSE 80; RESP 16; TEMP 98; O2SAT 97
[2017-01-21] MEDS: CHLORHEXIDINE 0.12% (ORAL KIT) 15 ML CUP MT SCH ×2 (08:00→20:00)
[2017-01-21] MEDS: ARTIFICIAL TEARS OPTH SOLN 15 ML BTL EACH EYE SCH ×3 (08:11→16:29)
[2017-01-21] MEDS: ASCORBIC ACID 500 MG TAB PO SCH ×2 (08:12→22:06)
[2017-01-21] MEDS: FAMOTIDINE 20 MG TAB PO SCH ×2 (08:12→22:06)
[2017-01-21] MEDS: DOCUSATE SODIUM 100 MG CAP PO SCH ×2 (08:12→22:06)
[2017-01-21] MEDS: LACTOBACILLUS ACIDOPHILUS TAB PO SCH ×3 (08:12→16:29)
[2017-01-21] MEDS: BACITRACIN TOP OINT 15 GM TUBE TOPICAL SCH ×2 (08:12→22:06)
[2017-01-21] MEDS: BACITRACIN OINT 0.9 GM PKT TOPICAL SCH (08:12)
--- NOTE | 2017-01-21 10:55 | HHI.PR ---
Subjective Remarks in no acute distress. resting comfortably. no new complaints. Objective Vitals Vital Signs Date Time Temp Pulse Resp B/P (MAP) Pulse Ox O2 Delivery O2 Flow Rate FiO2 01/21/17 08:00 98.0 80 16 128/78 (95) 97 01/21/17 06:25 98.1 64 18 119/75 (90) 97 01/21/17 00:00 98.3 69 18 118/76 (90) 97 01/20/17 20:00 98.5 82 18 124/72 (89) 97 01/20/17 16:24 98.0 84 17 122/79 (93) 98 01/20/17 12:42 98.3 70 16 109/73 (85) 98 I/O 01/20/17 01/20/17 01/20/17 01/21/17 01/21/17 01/21/17 07:00 15:00 23:00 07:00 15:00 23:00 Output Total 600 ml 150 ml 700 ml Balance -600 ml -150 ml -700 ml Output Urine Total 600 ml 150 ml 700 ml # Bowel Movements 0 0 0 Imaging Last Impressions Lower Extremity Ultrasound 12/29/16 0000 Signed Impressions: Service Date/Time: December 13:07 - CONCLUSION: No sonographic or Doppler findings of deep venous thrombosis. Joni Shelton MD Carotid Artery Ultrasound 12/27/16 0000 Signed Impressions: Service Date/Time: Tuesday, December 27, 2016 17:19 - CONCLUSION: Mild plaque at the carotid bulb regions bilaterally without a significant stenosis seen. Yosvany Alfaro MD Aorta w/Runoff CTA 12/27/16 0000 Signed Impressions: Service Date/Time: Wednesday, December 28, 2016 17:28 - CONCLUSION: Atherosclerotic calcification seen throughout the arterial system without an area of significant stenosis. The trifurcation vessels are only faintly opacified. Yosvany Alfaro MD Modified Barium Swallow 12/23/16 0000 Signed Impressions: Service Date/Time: Friday, December 23, 2016 09:11 - CONCLUSION: Negative for aspiration.. Remington Woodward MD FACR Chest X-Ray 12/04/16 [id number] Signed Impressions: Service Date/Time: Sunday, December 04, 2016 18:55 - CONCLUSION: 1. Placement of left central line tip in superior vena cava. No pneumothorax. Mild basilar airspace disease. Small right effusion. Gurwinder Root MD Upper Extremity Ultrasound 12/04/16 0000 Signed Impressions: Service Date/Time: Sunday, December 04, 2016 15:37 - CONCLUSION: 1. Positive for occlusive deep venous thrombosis in the right axillary and subclavian vein. Occlusive superficial thrombus in bilateral cephalic veins. Gurwinder Root MD Angiography 12/01/16 0000 Signed Impressions: Service Date/Time: November 14:02 - CONCLUSION: 1. Right side up on her hemorrhage with angiography of the right bronchial artery revealing no source of active hemorrhage. Empiric embolization was performed. Santos Crockett Jr., MD Chest CT 11/28/16 0000 Signed Impressions: Service Date/Time: Tuesday, November 29, 2016 05:13 - CONCLUSION: 1. Patchy alveolar disease characteristic of edema or pneumonia. 2. Severe emphysema 3. Gastrojejunostomy tube looped in the stomach Harvey Morejon MD Chest/Thorax CTA 11/26/16 0000 Signed Impressions: Service Date/Time: Saturday, November 26, 2016 20:18 - CONCLUSION: 1. Extensive filling defects within the right central bronchial tree characteristic of endobronchial hemorrhage. 2. Consolidating airspace disease in the right upper lobe and right lower lobe characteristic of hemorrhage and post obstructive lung consolidation. 3. Right bronchial artery is identified extending to the central right bronchial region 4. Advanced COPD. Nasir Amanda MD Abdomen X-Ray 11/19/16 0600 Signed Impressions: Service Date/Time: Saturday, November 19, 2016 02:44 - CONCLUSION: Unchanged bowel gas pattern potentially relating to an ileus. Santos Crockett Jr., MD Transcranial Doppler Study Complete 10/20/16 0600 Signed Impressions: Service Date/Time: October 07:54 - CONCLUSION: Slight interval elevation of flow velocity measurements and ratio on the left Yosvany Polk MD Liver Ultrasound 10/19/16 0000 Signed Impressions: Service Date/Time: Wednesday, October 19, 2016 11:20 - CONCLUSION: 1. Sludge filled gallbladder with thickened wall. 2. Moderate size bilateral pleural effusions and mild upper abdominal ascites. Santos Vazquez MD Cerebral Arteriogram 10/19/16 0000 Signed Impressions: Service Date/Time: Wednesday, October 19, 2016 12:47 - CONCLUSION: Uncomplicated cerebral arteriography with spasmolytic therapy as described in detail above. Yosvany Polk MD Head CT 10/17/16 0000 Signed Impressions: Service Date/Time: Monday, October 17, 2016 15:06 - CONCLUSION: Ventricles are slightly larger without ventriculostomy. Edema in the left hemisphere the brain herniating through the operative site. Remington Woodward MD FACR Infusion Non-thrombolysis 10/14/16 1103 Signed Impressions: Service Date/Time: Friday, October 14, 2016 10:21 - CONCLUSION: 1. Uncomplicated infusion for spasmolysis Harvey Morejon MD Neck CTA 10/07/16 0000 Signed Impressions: Service Date/Time: Friday, October 07, 2016 15:03 - CONCLUSION: 1. Mild carotid bulb atherosclerotic calcification bilaterally. However, no significant stenosis is present in either internal carotid artery. 2. Paranasal sinus mucoperiosteal thickening. 3. Please refer to brain CTA report for description of the intracranial findings. Yosvany Ramirez MD Head CTA 10/07/16 0000 Signed Impressions: Service Date/Time: Friday, October 07, 2016 15:03 - CONCLUSION: 1. 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 2. Large left subdural hematoma measuring 1.3 cm in depth with a significant, 1.6 cm left to right subfalcine shift. Joni Shelton MD Objective Remarks GENERAL: This is a well-nourished, well-developed patient, in no apparent distress. CARDIOVASCULAR: Regular rate and regular rhythm without murmurs, gallops, or rubs. RESPIRATORY: Clear to auscultation. Breath sounds equal bilaterally. No wheezes , rales, or rhonchi. GASTROINTESTINAL: Abdomen soft, non-tender, nondistended. Normal, active bowel sounds MUSCULOSKELETAL: Extremities without clubbing, cyanosis, or edema. NEURO: awake and alert. Procedures 10/13 Four-vessel cerebral angiography with verapamil treatment of vasospasm Status post left frontotemporal parietal craniectomy 10/08 for evacuation subdural hematoma/duraplasty. 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 parietal cranioplasty with replacement of skull flap by Dr Perry neurosurgery on 12/27/16 Medications and IVs Current Medications Iohexol (Omnipaque 350 Inj) 100 ml STK-MED ONCE IVCONTRAST Last administered on 10/07/16 14:21; Start 10/07/16 at 14:21; Stop 10/07/16 at 15:21; Status DC Mannitol 50 ml @ As Directed STK-MED ONCE .ROUTE ; Start 10/07/16 at 15:25; Stop 10/07/16 at 15:26; Status DC Propofol 0 ml @ As Directed STK-MED ONCE .ROUTE ; Start 10/07/16 at 15:25; Stop 10/07/16 at 15:26; Status DC Levetriacetam (Keppra Inj) 1,000 mg STK-MED ONCE IV Last administered on 18:30; Start 10/07/16 at 15:27; Stop 10/07/16 at 15:28; Status DC Mannitol (Mannitol Inj) 50 gm ONCE ONCE IV Last administered on 10/13/16 21: 00; Start 10/07/16 at 15:30; Stop 10/07/16 at 15:31; Status DC Nicardipine HCl 25 mg/Sodium Chloride 260 ml @ 52 mls/hr Q5H PRN IV Blood pressure management; Start 10/07/16 at 15:40; Stop 10/14/16 at 21:02; Status DC Propofol 100 ml @ 0 mls/hr Q0M PRN IV Ordered RASS Last administered on 23:01; Start 10/07/16 at 15:40; Stop 10/07/16 at 23:16; Status DC Sodium Chloride 1,000 ml @ 75 mls/hr [id number] IV ; Start 10/07/16 at 16:08; Stop 10/07/16 at 18:34; Status DC Sodium Chloride (NS Flush) 2 ml UNSCH PRN IV FLUSH FLUSH AFTER USING IV ACCESS ; Start 10/07/16 at 16:15; Stop 10/07/16 at 18:40; Status DC Sodium Chloride (NS Flush) 2 ml BID IV FLUSH ; Start 10/07/16 at 21:00; Stop at 21:00; Status DC Acetaminophen (Tylenol) 650 mg Q6H PRN PO PAIN 1-10 AND/OR FEVER >101F; Start 10/07/16 at 16:15; Stop 10/07/16 at 19:04; Status DC Albuterol/ Ipratropium (Duoneb Neb) 1 ampule Q6HR NEB NEB Last administered on 10/11/16 15:16; Start 10/07/16 at 22:00; Stop 10/11/16 at 21:59; Status DC Albuterol/ Ipratropium (Duoneb Neb) 1 ampule Q4HR NEB PRN INH SHORTNESS OF BREATH Last administered on 10/14/16 19:33; Start 10/07/16 at 16:15; Stop at 09:43; Status DC Chlorhexidine Gluconate (Peridex 0.12% Liq) 15 ml BID@08,20 MT Last administered on 11/28/16 08:00; Start 10/07/16 at 20:00; Stop 11/28/16 at 11: 18; Status DC Pantoprazole Sodium (Protonix Inj) 40 mg DAILY IV ; Start 10/08/16 at 09:00; Stop 10/08/16 at 09:00; Status DC Miscellaneous Information 1 [id number] ; Start 10/07/16 at 16:15; Stop 10/19/16 at 12:07; Status DC Chlorhexidine Gluconate (Chlorhexidine 2% Cloth) Taper DAILY@04 TOP Last administered on 10/19/16 03:13; Start 10/08/16 at 04:00; Stop 10/19/16 at 12:07; Status DC Chlorhexidine Gluconate (Chlorhexidine 2% Cloth) 3 pack UNSCH PRN TOP HYGIENIC CARE; Start 10/07/16 at 16:15; Stop 10/19/16 at 12:07; Status DC Insulin Aspart (NovoLOG SUPPLEMENTAL SCALE) 1 Q6HR SQ Last administered on 06:40; Start 10/07/16 at 18:00; Stop 10/20/16 at 09:23; Status DC Propofol 100 ml @ 0 mls/hr Q0M PRN IV SEDATION; Start 10/07/16 at 16:08; Status UNV Nimodipine (Nimotop) 60 mg Q4HR OG-TUBE Last administered on 10/12/16 15:18; Start 10/07/16 at 20:00; Stop 10/12/16 at 23:47; Status DC Verapamil HCl (Isoptin Inj) 10 mg STK-MED ONCE .ROUTE ; Start 10/07/16 at 16:45 ; Stop 10/07/16 at 16:46; Status DC Nitroglycerin (Nitroglycerin 2% Oint) 1 inch STK-MED ONCE .ROUTE ; Start at 16:55; Stop 10/07/16 at 16:56; Status DC Heparin Sodium (Porcine) (Heparin Inj) 10,000 units STK-MED ONCE .ROUTE ; Start 10/07/16 at 16:56; Stop 10/07/16 at 16:57; Status DC Potassium Chloride/Sodium Chloride 1,000 ml @ 100 mls/hr Q10H IV Last administered on 10/14/16 07:08; Start 10/07/16 at 18:20; Stop 10/14/16 at 21:02; Status DC IV Flush (NS Flush) 2 ml UNSCH PRN IVF FLUSH AFTER USING IV ACCESS; Start 10/07 at 18:30; Stop 10/19/16 at 12:09; Status DC IV Flush (NS Flush) 2 ml BID IVF Last administered on 10/19/16 09:00; Start at 21:00; Stop 10/19/16 at 12:09; Status DC Cefazolin Sodium/ Dextrose 50 ml @ 100 mls/hr Q8H IV Last administered on 10/08 10:30; Start 10/07/16 at 19:00; Stop 10/08/16 at 11:29; Status DC Levetriacetam 500 mg/Sodium Chloride 105 ml @ 400 mls/hr Q12H IV Last administered on 10/31/16 05:11; Start 10/08/16 at 06:00; Stop 10/31/16 at 10:47 ; Status DC Bisacodyl (Dulcolax Supp) 10 mg DAILY PRN RECTAL CONSTIPATION; Start 10/07/16 at 18:30; Stop 10/31/16 at 10:47; Status DC Docusate Sodium (Colace) 100 mg BID PO Last administered on 10/19/16 09:00; Start 10/07/16 at 21:00; Stop 10/19/16 at 12:15; Status DC Pantoprazole Sodium (Protonix) 40 mg DAILY PO Last administered on 10/14/16 07: 47; Start 10/08/16 at 09:00; Stop 10/19/16 at 09:46; Status DC Pantoprazole Sodium (Protonix Inj) 40 mg DAILY IVP Last administered on 07:45; Start 10/08/16 at 09:00; Stop 10/12/16 at 14:30; Status DC Ondansetron HCl (Zofran Inj) 4 mg Q6H PRN IV NAUSEA OR VOMITING Last administered on 11/13/16 20:31; Start 10/07/16 at 18:30; Stop 12/08/16 at 13: 55; Status DC Calcium Gluconate (Calcium Gluconate Inj) 1 gm UNSCH PRN IV SEE LABEL COMMENTS Last administered on 10/16/16 10:00; Start 10/07/16 at 18:30; Stop 11/17/16 at 14:34; Status DC Potassium Chloride 100 ml @ 50 mls/hr UNSCH PRN IV POTASSIUM LESS THAN 4 Last administered on 12/02/16 08:13; Start 10/07/16 at 18:30; Stop 12/16/16 at 15: 01; Status DC Magnesium Sulfate 4 gm/Sodium Chloride 108 ml @ 108 mls/hr UNSCH PRN IV MAGNESIUM LESS THAN 2; Start 10/07/16 at 18:30; Stop 12/27/16 at 11:35; Status DC Acetaminophen/ Hydrocodone Bitart ([place] 10-325 Mg) 1 tab Q4H PRN PO PAIN SCALE 1 TO 5 Last administered on 10/13/16 13:07; Start 10/07/16 at 18:30; Stop 10/15/16 at 08:05; Status DC Acetaminophen/ Hydrocodone Bitart ([place] 10-325 Mg) 2 tab Q4H PRN PO PAIN SCALE 6 TO 10 Last administered on 10/09/16 10:20; Start 10/07/16 at 18:30; Stop 10/15/16 at 08:05; Status DC Morphine Sulfate (Morphine Inj) 2 mg Q2H PRN IV PUSH PAIN SCALE 1 TO 6 Last administered on 10/10/16 17:52; Start 10/07/16 at 18:30; Stop 10/15/16 at 08:05 ; Status DC Morphine Sulfate (Morphine Inj) 4 mg Q2H PRN IV PUSH PAIN SCALE 7 TO 10 Last administered on 10/08/16 01:55; Start 10/07/16 at 18:30; Stop 10/15/16 at 08:05 ; Status DC Acetaminophen (Tylenol) 650 mg Q4H PRN PO TEMP >100.4 Last administered on 11/14 03:07; Start 10/07/16 at 18:30; Stop 11/30/16 at 13:12; Status DC Iodixanol (VISIPAQUE 320 INJ (Rad Spec)) 65 ml STK-MED ONCE I-ARTERIAL Last administered on 10/07/16 18:38; Start 10/07/16 at 18:38; Stop 10/07/16 at 18:39 ; Status DC Dextrose (D50w (Vial) Inj) 50 ml UNSCH PRN IV PUSH HYPOGLYCEMIA - SEE COMMENTS Last administered on 11/01/16 09:22; Start 10/07/16 at 19:15; Stop 11/12/16 at 08:41; Status DC Glucagon (Glucagon Inj) 1 mg UNSCH PRN OTHER HYPOGLYCEMIA-SEE COMMENTS; Start 10/07/16 at 19:15; Stop 11/12/16 at 08:42; Status DC Midazolam HCl (Versed Inj) 4 mg STK-MED ONCE .ROUTE ; Start 10/07/16 at 19:51; Stop 10/07/16 at 19:52; Status DC Fentanyl Citrate (fentaNYL INJ) 250 mcg STK-MED ONCE .ROUTE ; Start 10/07/16 at 20:32; Stop 10/07/16 at 20:33; Status DC Propofol 100 ml @ 0 mls/hr TITRATE PRN IV Sedation Last administered on 05:31; Start 10/07/16 at 23:15; Stop 11/01/16 at 14:52; Status DC Epinephrine HCl (EPINEPHrine (1:10,000) INJ) 1 mg STK-MED ONCE .ROUTE ; Start at 04:09; Stop 10/09/16 at 04:10; Status DC Atropine Sulfate (Atropine Inj) 1 mg STK-MED ONCE .ROUTE ; Start 10/09/16 at 04: 09; Stop 10/09/16 at 04:10; Status DC Lidocaine HCl (Xylocaine 2% Inj) 100 mg STK-MED ONCE .ROUTE ; Start 10/09/16 at 04:09; Stop 10/09/16 at 04:10; Status DC Nimodipine (Nimotop) 60 mg Q4HR PO Last administered on 11/02/16 20:23; Start 10/13/16 at 00:00; Stop 11/02/16 at 23:59; Status DC Verapamil HCl (Isoptin Inj) 20 mg STK-MED ONCE .ROUTE Last administered on 10/13 17:10; Start 10/13/16 at 17:10; Stop 10/13/16 at 17:11; Status DC Iodixanol (VISIPAQUE 320 INJ (Rad Spec)) 45 ml STK-MED ONCE I-ARTERIAL Last administered on 10/13/16 17:40; Start 10/13/16 at 17:49; Stop 10/13/16 at 17:50 ; Status DC Midazolam HCl (Versed Inj) 2 mg STK-MED ONCE .ROUTE ; Start 10/13/16 at 18:32; Stop 10/13/16 at 18:33; Status DC Fentanyl Citrate (fentaNYL INJ) 200 mcg STK-MED ONCE .ROUTE ; Start 10/13/16 at 18:32; Stop 10/13/16 at 18:33; Status DC Sodium Chloride 2,000 ml @ 0 mls/hr Q0M IV Last administered on 10/14/16 20:20 ; Start 10/13/16 at 21:45; Stop 10/14/16 at 23:59; Status DC Phenylephrine HCl (Neosynephrine Inj) 10 mg STK-MED ONCE .ROUTE Last administered on 10/14/16 09:10; Start 10/14/16 at 09:10; Stop 10/14/16 at 09:11; Status DC Verapamil HCl (Isoptin Inj) 20 mg STK-MED ONCE .ROUTE Last administered on 10:19; Start 10/14/16 at 10:19; Stop 10/14/16 at 10:20; Status DC Fentanyl Citrate (fentaNYL INJ) 100 mcg STK-MED ONCE .ROUTE Last administered on 10/14/16 10:32; Start 10/14/16 at 10:32; Stop 10/14/16 at 10:33; Status DC Midazolam HCl (Versed Inj) 2 mg STK-MED ONCE .ROUTE Last administered on 10:32; Start 10/14/16 at 10:32; Stop 10/14/16 at 10:33; Status DC Midazolam HCl (Versed Inj) 2 mg STK-MED ONCE .ROUTE ; Start 10/14/16 at 10:32; Stop 10/14/16 at 10:33; Status DC Vasopressin 40 units/Dextrose 100 ml @ 4.5 mls/hr [id number] IV Last administered on 10/25/16 02:30; Start 10/14/16 at 11:30; Stop 10/31/16 at 10:47 ; Status DC Albumin Human (Albumin 5% Inj) 25 gm ONCE ONCE IV Last administered on 11:34; Start 10/14/16 at 11:15; Stop 10/14/16 at 11:17; Status DC Iodixanol (VISIPAQUE 320 INJ (Rad Spec)) 10 ml STK-MED ONCE I-ARTERIAL Last administered on 10/14/16 11:06; Start 10/14/16 at 11:06; Stop 10/14/16 at 11:07; Status DC Fludrocortisone Acetate (Florinef) 0.1 mg BID PO Last administered on 10/15/16 11:39; Start 10/14/16 at 11:45; Stop 10/15/16 at 13:17; Status DC Phenylephrine HCl (Neosynephrine Inj) 10 mg STK-MED ONCE .ROUTE Last administered on 10/14/16 12:18; Start 10/14/16 at 12:18; Stop 10/14/16 at 12:19; Status DC Norepinephrine Bitartrate 250 ml @ As Directed STK-MED ONCE IV ; Start 10/14/16 at 13:14; Stop 10/14/16 at 13:15; Status DC Norepinephrine Bitartrate (Levophed Inj) 4 mg STK-MED ONCE .ROUTE Last administered on 10/14/16 13:15; Start 10/14/16 at 13:15; Stop 10/14/16 at 13:16; Status DC Etomidate (Amidate Inj) 20 mg STK-MED ONCE .ROUTE Last administered on 14:18; Start 10/14/16 at 13:44; Stop 10/14/16 at 13:45; Status DC Midazolam HCl (Versed Inj) 5 mg STK-MED ONCE .ROUTE Last administered on 14:18; Start 10/14/16 at 13:44; Stop 10/14/16 at 13:45; Status DC Rocuronium [place] (Zemuron Inj) 50 mg STK-MED ONCE .ROUTE Last administered on 10/14/16 14:17; Start 10/14/16 at 13:45; Stop 10/14/16 at 13:46; Status DC Fentanyl Citrate 250 ml @ 5 mls/hr TITRATE PRN IV SEDATION Last administered on 10/30/16 17:39; Start 10/14/16 at 15:00; Stop 11/01/16 at 14:52; Status DC Phenylephrine HCl (Neosynephrine Inj) 10 mg STK-MED ONCE .ROUTE Last administered on 10/14/16 14:26; Start 10/14/16 at 14:26; Stop 10/14/16 at 14:27; Status DC Norepinephrine Bitartrate 4 mg/ Sodium Chloride 250 ml @ 7.5 mls/hr TITRATE PRN IV Blood pressure management Last administered on 10/15/16 15:05; Start 10/14 at 14:45; Stop 10/15/16 at 14:54; Status DC Terbutaline Sulfate (Brethine Inj) 1 mg UNSCH PRN SQ For Extravasation; Start 10/14/16 at 14:45; Stop 10/19/16 at 12:10; Status DC Rocuronium [place] (Zemuron Inj) 50 mg STK-MED ONCE .ROUTE Last administered on 10/14/16 14:43; Start 10/14/16 at 14:43; Stop 10/14/16 at 14:44; Status DC Midazolam HCl 100 ml @ 2 mls/hr TITRATE PRN IV SEDATION Last administered on 22:54; Start 10/14/16 at 15:00; Stop 10/25/16 at 08:47; Status DC Phenylephrine HCl (Neosynephrine Inj) 10 mg STK-MED ONCE .ROUTE ; Start 10/14/16 at 18:03; Stop 10/14/16 at 18:04; Status DC Phenylephrine HCl 40 mg/Dextrose 500 ml @ 30 mls/hr TITRATE PRN IV Blood pressure management Last administered on 10/15/16 15:02; Start 10/14/16 at 18:30 ; Stop 10/15/16 at 15:36; Status DC Terbutaline Sulfate (Brethine Inj) 1 mg UNSCH PRN SQ For Extravasation; Start 10/14/16 at 18:15; Stop 10/15/16 at 08:05; Status DC Heparin Sodium (Porcine) (Heparin Inj) 5,000 units Q8HR SQ Last administered on 11/13/16 21:20; Start 10/14/16 at 22:00; Status Future Hold Isoproterenol HCl 2 mg/Dextrose 260 ml @ 23.4 mls/hr TITRATE PRN IV Hypotension Last administered on 10/14/16 21:26; Start 10/14/16 at 21:00; Stop at 16:24; Status DC Sodium Chloride 1,000 ml @ 50 mls/hr Q20H IV Last administered on 10/15/16 09: 54; Start 10/14/16 at 21:15; Stop 10/16/16 at 09:17; Status DC Phenylephrine HCl (Neosynephrine Inj) 40 mg STK-MED ONCE .ROUTE ; Start 10/14/16 at 23:30; Stop 10/14/16 at 23:31; Status DC Phenylephrine HCl (Neosynephrine Inj) 10 mg STK-MED ONCE .ROUTE ; Start 10/14/16 at 23:31; Stop 10/14/16 at 23:32; Status DC Epinephrine HCl 2 mg/Dextrose 252 ml @ 22.68 mls/ hr TITRATE PRN IV Blood Pressure Management Last administered on 10/15/16 15:03; Start 10/15/16 at 02:00 ; Stop 10/15/16 at 14:54; Status DC Epinephrine HCl (Adrenalin (1:1000) Inj) 2 mg STK-MED ONCE .ROUTE ; Start at 01:59; Stop 10/15/16 at 02:00; Status DC Lorazepam (Ativan Inj) 2 mg STK-MED ONCE .ROUTE ; Start 10/15/16 at 02:13; Stop 10/15/16 at 02:14; Status DC Epoprostenol Sodium 75 ml/ Sodium Chloride 100 ml @ 8 mls/hr Q8H NEB Last administered on 10/21/16 15:25; Start 10/15/16 at 03:00; Stop 10/21/16 at 16:05; Status DC Lorazepam (Ativan Inj) 2 mg ONCE ONCE IV PUSH Last administered on 10/15/16 03 :33; Start 10/15/16 at 02:30; Stop 10/15/16 at 02:37; Status DC Fosphenytoin Sodium 1000 mgpe/ Sodium Chloride 70 ml @ 280 mls/hr ONCE ONCE IV Last administered on 10/15/16 03:32; Start 10/15/16 at 02:30; Stop 10/15/16 at 02:44; Status DC Fosphenytoin Sodium (Cerebyx Inj) 100 mgpe Q8HR IV Last administered on 06:28; Start 10/15/16 at 10:00; Stop 10/25/16 at 14:25; Status DC Calcium Chloride 1 gm/Sodium Chloride 110 ml @ 110 mls/hr ONCE ONCE IV Last administered on 10/15/16 03:52; Start 10/15/16 at 03:15; Stop 10/15/16 at 04:14; Status DC Pharmacy Profile Note 0 ml @ 0 mls/hr UNSCH OTHER ; Start 10/15/16 at 03:30; Stop 10/18/16 at 07:20; Status DC Cefepime HCl 2000 mg/Sodium Chloride 100 ml @ 200 mls/hr Q8H IV Last administered on 10/18/16 03:34; Start 10/15/16 at 04:00; Stop 10/18/16 at 07:20; Status DC Azithromycin 500 mg/Sodium Chloride 250 ml @ 250 mls/hr Q24H IV Last administered on 10/18/16 03:34; Start 10/15/16 at 04:00; Stop 10/18/16 at 07:20; Status DC Albuterol/ Ipratropium (Duoneb Neb) 1 ampule Q4HR WHILE AWAKE NEB NEB Last administered on 10/18/16 20:21; Start 10/15/16 at 08:00; Stop 10/19/16 at 07:59; Status DC Vancomycin HCl 1000 mg/Sodium Chloride 250 ml @ 250 mls/hr ONCE ONCE IV Last administered on 10/15/16 07:02; Start 10/15/16 at 05:00; Stop 10/15/16 at 05:59; Status DC Hydrocortisone Sodium Succinate (SoluCORTEF INJ) 100 mg Q8H IV PUSH Last administered on 10/22/16 04:34; Start 10/15/16 at 04:00; Stop 10/22/16 at 10:29; Status DC Phenylephrine HCl (Neosynephrine Inj) 20 mg STK-MED ONCE .ROUTE ; Start 10/15/16 at 04:35; Stop 10/15/16 at 04:36; Status DC Sodium Chloride 500 ml @ 30 mls/hr CONTINUOUS IV Last administered on 11:43; Start 10/15/16 at 08:00; Stop 10/22/16 at 10:29; Status DC Calcium Gluconate 2 gm/Sodium Chloride 120 ml @ 120 mls/hr ONCE ONCE IV Last administered on 10/15/16 09:26; Start 10/15/16 at 09:00; Stop 10/15/16 at 09:59; Status DC Albumin Human (Albumin 5% Inj) 12.5 gm STK-MED ONCE IV Last administered on 10/15 09:17; Start 10/15/16 at 09:17; Stop 10/15/16 at 09:18; Status DC Rocuronium [place] (Zemuron Inj) 50 mg STK-MED ONCE .ROUTE Last administered on 10/15/16 09:50; Start 10/15/16 at 09:50; Stop 10/15/16 at 09:51; Status DC Vancomycin HCl 1250 mg/Sodium Chloride 262.5 ml @ 262.5 mls/ hr Q12H IV Last administered on 10/17/16 05:57; Start 10/15/16 at 18:00; Stop 10/17/16 at 09:41; Status DC Miscellaneous Information SPECIFIC LAB TO BE LI... ONCE ONCE .XX Last administered on 10/17/16 05:45; Start 10/17/16 at 05:45; Stop 10/17/16 at 05:46; Status DC Cisatracurium Besylate 100 mg/ Sodium Chloride 260 ml @ 11.24 mls/ hr TITRATE PRN IV TOF / Last administered on 10/21/16 12:59; Start 10/15/16 at 13:00; Stop 10/31/16 at 10:47; Status DC Sodium Chloride 240 meq/Syringe / Bag 60 ml @ 120 mls/hr ONCE ONCE IV Last administered on 10/15/16 13:25; Start 10/15/16 at 13:15; Stop 10/15/16 at 13:44; Status DC Sodium Chloride (Sodium Chloride) 3 gm TID PO Last administered on 11/04/16 10 :18; Start 10/15/16 at 13:15; Stop 11/04/16 at 11:21; Status DC Fludrocortisone Acetate (Florinef) 0.2 mg BID PO Last administered on 10/16/16 08:12; Start 10/15/16 at 21:00; Stop 10/16/16 at 09:12; Status DC Epinephrine HCl 2 mg/Dextrose 252 ml @ 22.68 mls/ hr TITRATE PRN IV Blood Pressure Management; Start 10/15/16 at 15:00; Stop 10/15/16 at 15:32; Status DC Norepinephrine Bitartrate 4 mg/ Sodium Chloride 250 ml @ 7.5 mls/hr TITRATE PRN IV Blood pressure management; Start 10/15/16 at 15:00; Stop 10/15/16 at 15:56 ; Status DC Sodium Chloride 240 meq/Syringe / Bag 60 ml @ 120 mls/hr ONCE ONCE IV Last administered on 10/15/16 15:33; Start 10/15/16 at 15:30; Stop 10/15/16 at 15:59; Status DC Epinephrine HCl 8 mg/Dextrose 250 ml @ 5.62 mls/hr TITRATE PRN IV Blood Pressure Management Last administered on 10/17/16 08:30; Start 10/15/16 at 15:30 ; Stop 10/17/16 at 10:08; Status DC Phenylephrine HCl 160 mg/Dextrose 500 ml @ 7.5 mls/hr TITRATE PRN IV Blood Pressure Management Last administered on 10/18/16 09:34; Start 10/15/16 at 15:45 ; Stop 10/17/16 at 10:08; Status DC Terbutaline Sulfate (Brethine Inj) 1 mg UNSCH PRN SQ FOR EXTRAVASATION PROTOCOL ; Start 10/15/16 at 15:45; Stop 11/01/16 at 07:51; Status DC Norepinephrine Bitartrate 16 mg/ Sodium Chloride 250 ml @ 1.87 mls/hr TITRATE PRN IV Blood pressure management Last administered on 10/17/16 09:11; Start 10/15 at 16:00; Stop 10/17/16 at 10:08; Status DC Calcium Gluconate 3 gm/Sodium Chloride 130 ml @ 120 mls/hr ONCE ONCE IV Last administered on 10/16/16 09:48; Start 10/16/16 at 10:00; Stop 10/16/16 at 11:04; Status DC Sodium Chloride 240 meq/Syringe / Bag 60 ml @ 120 mls/hr ONCE ONCE IV Last administered on 10/16/16 09:48; Start 10/16/16 at 10:00; Stop 10/16/16 at 10:29; Status DC Magnesium Oxide (Mag-Ox) 800 mg UNSCH PRN PO For Magnesium 1.2 - 1.6 mg/dL; Start 10/16/16 at 09:15; Stop 11/25/16 at 09:51; Status DC Magnesium Sulfate 4 gm/Sodium Chloride 100 ml @ 50 mls/hr UNSCH PRN IV For Magnesium 0.9 - 1.1 mg/dL; Start 10/16/16 at 09:15; Stop 11/25/16 at 09:51; Status DC Magnesium Sulfate 2 gm/Sodium Chloride 100 ml @ 50 mls/hr UNSCH PRN IV For Magnesium 1.2 - 1.6 mg/dL; Start 10/16/16 at 09:15; Stop 11/25/16 at 09:51; Status DC Potassium Chloride 100 ml @ 50 mls/hr Q2H PRN IV For Potassium 2.8 - 3.2 mEq/ L Last administered on 11/15/16 12:36; Start 10/16/16 at 09:15; Stop 11/25/16 at 09:51; Status DC Potassium Chloride 100 ml @ 50 mls/hr Q2H PRN IV For Potassium 3.3 - 3.5 mEq/L ; Start 10/16/16 at 09:15; Stop 11/25/16 at 09:51; Status DC Potassium Chloride 100 ml @ 50 mls/hr Q2H PRN IV For Potassium 2.8 - 3.2 mEq/ L Last administered on 10/27/16 13:26; Start 10/16/16 at 09:15; Stop 11/25/16 at 09:51; Status DC Potassium Chloride 100 ml @ 25 mls/hr UNSCH PRN IV For Potassium 3.3 - 3.5 mEq /L Last administered on 10/30/16 06:06; Start 10/16/16 at 09:15; Stop 11/25/16 at 09:51; Status DC Potassium Phosphate (K-Phos) 2,000 mg Q4H PRN PO For Phosphorus < 2.5 mg/dL; Start 10/16/16 at 09:15; Stop 11/25/16 at 09:51; Status DC Potassium Phosphate (K-Phos) 2,000 mg UNSCH PRN PO/TUBE SEE LABEL COMMENTS; Start 10/16/16 at 09:15; Stop 11/25/16 at 09:51; Status DC Potassium Phosphate 30 mmol/ Sodium Chloride 260 ml @ 42 mls/hr UNSCH PRN IV SEE LABEL COMMENTS Last administered on 10/24/16 20:39; Start 10/16/16 at 09:15 ; Stop 11/25/16 at 09:51; Status DC Sodium Phosphate 30 mmol/Sodium Chloride 250 ml @ 42 mls/hr UNSCH PRN IV For Phosphorus < 2.5 mg/dL Last administered on 10/22/16 06:46; Start 10/16/16 at 09: 15; Stop 11/25/16 at 09:51; Status DC Furosemide (Lasix Inj) 40 mg STK-MED ONCE .ROUTE Last administered on 10/16/16 13:27; Start 10/16/16 at 13:27; Stop 10/16/16 at 13:28; Status DC Vancomycin HCl 1250 mg/Sodium Chloride 262.5 ml @ 250 mls/hr Q8H IV Last administered on 10/18/16 06:10; Start 10/17/16 at 14:00; Stop 10/18/16 at 07:20; Status DC Miscellaneous Information SPECIFIC LAB TO BE LI... ONCE ONCE .XX Last administered on 10/18/16 05:45; Start 10/18/16 at 05:45; Stop 10/18/16 at 05:46; Status DC Sodium Chloride 1,000 ml @ 999 mls/hr BOLUS ONCE IV Last administered on 10:45; Start 10/17/16 at 11:00; Stop 10/17/16 at 12:00; Status DC Epinephrine HCl 8 mg/Dextrose 250 ml @ 5.62 mls/hr TITRATE PRN IV Blood Pressure Management; Start 10/17/16 at 10:15; Status Cancel Norepinephrine Bitartrate 16 mg/ Sodium Chloride 250 ml @ 1.87 mls/hr TITRATE PRN IV Blood pressure management Last administered on 10/20/16 01:07; Start 10/17 at 10:15; Stop 10/31/16 at 10:47; Status DC Phenylephrine HCl 160 mg/Dextrose 500 ml @ 7.5 mls/hr TITRATE PRN IV Blood Pressure Management Last administered on 10/23/16 14:21; Start 10/17/16 at 10:15 ; Stop 10/29/16 at 11:49; Status DC Epinephrine HCl 8 mg/Dextrose 250 ml @ 5.62 mls/hr TITRATE PRN IV Blood Pressure Management Last administered on 10/20/16 15:14; Start 10/17/16 at 11:15 ; Stop 10/29/16 at 11:49; Status DC Heparin Sodium (Porcine) (*HEPARIN INJ Periprocedural ONLY) 10,000 units STK- MED ONCE .ROUTE Last administered on 10/17/16 14:54; Start 10/17/16 at 14:54; Stop 10/17/16 at 14:55; Status DC Verapamil HCl (Isoptin Inj) 20 mg STK-MED ONCE .ROUTE Last administered on 15:34; Start 10/17/16 at 15:34; Stop 10/17/16 at 15:35; Status DC Iodixanol (VISIPAQUE 320 INJ (Rad Spec)) 40 ml STK-MED ONCE I-ARTERIAL Last administered on 10/17/16 16:00; Start 10/17/16 at 16:31; Stop 10/17/16 at 16:32; Status DC Sodium Chloride 1,000 ml @ 100 mls/hr Q10H IV Last administered on 10/18/16 03 :35; Start 10/17/16 at 18:00; Stop 10/18/16 at 07:06; Status DC Potassium Chloride (KCl Powder) 60 meq ONCE ONCE NG Last administered on 08:52; Start 10/18/16 at 09:00; Stop 10/18/16 at 09:01; Status DC Calcium Gluconate 1 gm/Sodium Chloride 110 ml @ 110 mls/hr UNSCH PRN IV For Protein Corrected Calcium Last administered on 10/18/16 10:22; Start 10/18/16 at 09:45; Stop 12/27/16 at 11:31; Status DC Gentamicin Sulfate (Gentamicin Inj) 240 mg STK-MED ONCE IRRIGATION ; Start 10/07 at 12:00; Stop 10/18/16 at 12:13; Status DC Thrombin (Thrombin Top Soln) 5,000 units STK-MED ONCE TOPICAL ; Start 10/07/16 at 12:00; Stop 10/18/16 at 12:13; Status DC Gelatin (Gelfoam 100 Top) 1 foam STK-MED ONCE OTHER ; Start 10/07/16 at 12:00; Stop 10/18/16 at 12:13; Status DC Propofol (Diprivan 200 Mg/20 ml Inj) 200 mg STK-MED ONCE IV ; Start 10/07/16 at 12:00; Stop 10/18/16 at 12:16; Status DC Ephedrine Sulfate (ePHEDrine/NS 25 MG/5 ML SYR) 25 mg STK-MED ONCE IV ; Start at 12:00; Stop 10/18/16 at 12:16; Status DC Phenylephrine HCl (Neosynephrine/ NS 1000 Mcg/10ml Syr) 1,000 mcg STK-MED ONCE IV ; Start 10/07/16 at 12:00; Stop 10/18/16 at 12:16; Status DC Lactated Ringer's 1,000 ml @ As Directed STK-MED ONCE IV ; Start 10/07/16 at 12 :00; Stop 10/18/16 at 12:16; Status DC Milrinone Lactate 20 mg/Sodium Chloride 100 ml @ 12.42 mls/ hr Q8H4M IV Last administered on 10/22/16 09:23; Start 10/18/16 at 16:21; Stop 10/22/16 at 19:37; Status DC Lansoprazole (Prevacid Odt) 30 mg DAILY NG Last administered on 12/16/16 08:54 ; Start 10/20/16 at 09:00; Stop 12/16/16 at 15:01; Status DC Lansoprazole (Prevacid Odt) 30 mg ONCE ONCE NG Last administered on 10/19/16 12:11; Start 10/19/16 at 12:00; Stop 10/19/16 at 12:02; Status DC Sodium Chloride (NS Flush) 2 ml UNSCH PRN IV FLUSH FLUSH AFTER USING IV ACCESS ; Start 10/19/16 at 09:45; Stop 12/27/16 at 11:24; Status DC Sodium Chloride (NS Flush) 2 ml BID IV FLUSH Last administered on 12/26/16 22 :03; Start 10/19/16 at 21:00; Stop 12/27/16 at 11:24; Status DC Artificial Tears (Tears Naturale Opth Soln) 1 drop TID EACH EYE Last administered on 01/21/17 08:11; Start 10/19/16 at 13:00 Ondansetron HCl (Zofran Inj) 4 mg Q6H PRN IV NAUSEA OR VOMITING; Start 10/19/16 at 09:45; Status UNV Albuterol/ Ipratropium (Duoneb Neb) 1 ampule Q6HR NEB INH Last administered on 10/23/16 08:36; Start 10/19/16 at 12:00; Stop 10/23/16 at 11:59; Status DC Albuterol Sulfate (Albuterol Neb) 2.5 mg Q2HR NEB PRN INH SOB/WHEEZING Last administered on 11/22/16 22:09; Start 10/19/16 at 09:45 Miscellaneous Information 1 [id number] ; Start 10/19/16 at 09:45; Stop 01/13/17 at 12:47; Status DC Chlorhexidine Gluconate (Chlorhexidine 2% Cloth) Taper DAILY@04 TOP Last administered on 12/24/16 04:00; Start 10/20/16 at 04:00; Stop 01/13/17 at 12:47 ; Status DC Chlorhexidine Gluconate (Chlorhexidine 2% Cloth) 3 pack UNSCH PRN TOP HYGIENIC CARE; Start 10/19/16 at 09:45; Stop 01/13/17 at 12:47; Status DC Docusate Sodium (Colace Liq) 100 mg Q12HR PO Last administered on 10/30/16 07: 55; Start 10/19/16 at 21:00; Stop 10/31/16 at 10:47; Status DC Sennosides (Senna Liq) 8.8 mg BID PO Last administered on 10/29/16 20:15; Start 10/19/16 at 21:00; Stop 10/31/16 at 10:47; Status DC Polyethylene Glycol (Miralax) 17 gm BID OG-TUBE Last administered on 10/29/16 20:15; Start 10/19/16 at 21:00; Stop 10/31/16 at 10:47; Status DC Pharmacy Profile Note 0 ml @ 0 mls/hr UNSCH OTHER ; Start 10/19/16 at 10:15; Stop 10/24/16 at 11:41; Status DC Piperacillin Sod/ Tazobactam Sod 100 ml @ 200 mls/hr Q6H IV Last administered on 10/23/16 05:39; Start 10/19/16 at 12:00; Stop 10/23/16 at 09:43; Status DC Vancomycin HCl 1500 mg/Sodium Chloride 515 ml @ 257.5 mls/ hr Q8H IV Last administered on 10/22/16 04:38; Start 10/19/16 at 13:00; Stop 10/22/16 at 13:55; Status DC Miscellaneous Information SPECIFIC LAB TO BE DRAWN:VANCOMYCIN TROUGH DATE TO... ONCE ONCE .XX Last administered on 10/20/16 12:45; Start 10/20/16 at 12:45; Stop 10/20/16 at 12:46; Status DC Verapamil HCl (Isoptin Inj) 5 mg STK-MED ONCE .ROUTE ; Start 10/19/16 at 12:44; Stop 10/19/16 at 12:45; Status DC Verapamil HCl (Isoptin Inj) 15 mg STK-MED ONCE .ROUTE ; Start 10/19/16 at 12:44; Stop 10/19/16 at 12:45; Status DC Iodixanol (VISIPAQUE 320 INJ (Rad Spec)) 30 ml STK-MED ONCE I-ARTERIAL Last administered on 10/19/16 13:50; Start 10/19/16 at 14:05; Stop 10/19/16 at 14:06; Status DC Lactulose (Lactulose Liq) 30 ml BID OG-TUBE Last administered on 10/31/16 20: 30; Start 10/20/16 at 21:00; Stop 11/01/16 at 07:51; Status DC Mineral Oil (Kondremul Liq) 30 ml ONCE ONCE PO ; Start 10/20/16 at 09:15; Stop 10/20/16 at 09:16; Status Cancel Methylnaltrexone [place] (Relistor Inj) 12 mg ONCE ONCE SQ Last administered on 10/20/16 14:17; Start 10/20/16 at 09:15; Stop 10/20/16 at 09:39; Status DC Insulin Aspart (NovoLOG SUPPLEMENTAL SCALE) 1 Q4HR SQ Last administered on 10/27 11:57; Start 10/20/16 at 12:00; Stop 11/03/16 at 12:42; Status DC Multivitamins 10 ml/Folic Acid 1 mg/Amino Acids/ Electrolytes/ Dextrose 2,010.2 ml @ 30 mls/hr Q24H IV-CENTRAL Last administered on 10/28/16 20:01; Start 10/20/16 at 20:00; Stop 10/31/16 at 10:47; Status DC Fat Emulsion Intravenous 250 ml @ 10 mls/hr Q24H IV-CENTRAL Last administered on 10/29/16 19:58; Start 10/20/16 at 20:00; Stop 10/31/16 at 10:47; Status DC Mineral Oil (Mineral Oil Liq) 30 ml ONCE ONCE PO ; Start 10/20/16 at 14:00; Stop 10/20/16 at 14:01; Status Cancel Mineral Oil (Mineral Oil Liq) 30 ml ONCE ONCE PO Last administered on 15:32; Start 10/20/16 at 14:00; Stop 10/20/16 at 14:01; Status DC Potassium Phosphate 30 mmol/ Sodium Chloride 260 ml @ 43.333 mls/ hr ONCE ONCE IV ; Start 10/20/16 at 18:00; Stop 10/20/16 at 23:59; Status DC Potassium Chloride 100 ml @ 25 mls/hr BOLUS ONCE IV Last administered on 17:17; Start 10/20/16 at 17:00; Stop 10/20/16 at 20:59; Status DC Miscellaneous Information SPECIFIC LAB TO BE LI... ONCE ONCE .XX Last administered on 10/22/16 12:45; Start 10/22/16 at 12:45; Stop 10/22/16 at 12:46; Status DC Diltiazem HCl 125 mg/Sodium Chloride 125 ml @ 5 mls/hr TITRATE PRN IV Tachycardia Last administered on 10/27/16 08:13; Start 10/22/16 at 10:30; Stop 10/28/16 at 18:49; Status DC Hydrocortisone Sodium Succinate (SoluCORTEF INJ) 75 mg Q8H IV PUSH Last administered on 10/24/16 04:05; Start 10/22/16 at 12:00; Stop 10/24/16 at 09:40 ; Status DC Milrinone Lactate 20 mg/Sodium Chloride 100 ml @ 9.79 mls/hr [id number] IV Last administered on 10/30/16 03:35; Start 10/22/16 at 10:23; Stop 11/01/16 at 07:51 ; Status DC Furosemide (Lasix Inj) 40 mg NOW ONCE IV PUSH Last administered on 10/22/16 14 :46; Start 10/22/16 at 14:30; Stop 10/22/16 at 14:31; Status DC Furosemide 100 mg/ Sodium Chloride 100 ml @ 10 mls/hr CONTINUOUS IV Last administered on 10/24/16 01:16; Start 10/22/16 at 15:00; Stop 10/24/16 at 11:17 ; Status DC Vancomycin HCl 1500 mg/Sodium Chloride 515 ml @ 257.5 mls/ hr Q12H IV Last administered on 10/23/16 08:32; Start 10/23/16 at 09:00; Stop 10/23/16 at 09:43 ; Status DC Potassium Chloride 100 ml @ 25 mls/hr Q4H IV Last administered on 10/22/16 18: 05; Start 10/22/16 at 15:00; Stop 10/22/16 at 22:59; Status DC Miscellaneous Information SPECIFIC LAB TO BE LI... ONCE ONCE .XX ; Start 10/25 at 08:45; Stop 10/25/16 at 08:45; Status DC Potassium Chloride 100 ml @ 25 mls/hr Q4H IV Last administered on 10/23/16 19 :46; Start 10/23/16 at 18:30; Stop 10/24/16 at 02:29; Status DC Hydrocortisone Sodium Succinate (SoluCORTEF INJ) 50 mg Q12H IV PUSH Last administered on 10/25/16 04:42; Start 10/24/16 at 16:00; Stop 10/25/16 at 08:37 ; Status DC Insulin Detemir (Levemir Inj) 12 units Q12HR SQ Last administered on 10/28/16 09:23; Start 10/24/16 at 09:45; Stop 10/28/16 at 18:30; Status DC Furosemide 100 mg/ Sodium Chloride 100 ml @ 5 mls/hr CONTINUOUS IV Last administered on 10/27/16 08:12; Start 10/24/16 at 12:00; Stop 10/27/16 at 08:59 ; Status DC Hydrocortisone Sodium Succinate (SoluCORTEF INJ) 25 mg Q12H IV PUSH Last administered on 10/27/16 04:14; Start 10/25/16 at 16:00; Stop 10/27/16 at 08:59 ; Status DC Acetazolamide Sodium (Diamox Inj) 500 mg DAILY IV PUSH Last administered on 08:15; Start 10/25/16 at 09:00; Stop 10/28/16 at 03:25; Status DC Phenytoin Sodium (Dilantin Inj) 100 mg Q8HR IV Last administered on 11/01/16 05:30; Start 10/25/16 at 22:00; Stop 11/01/16 at 07:52; Status DC Furosemide (Lasix Inj) 40 mg DAILY IV PUSH Last administered on 11/09/16 09:11 ; Start 10/28/16 at 09:00; Stop 11/09/16 at 10:18; Status DC Sodium Chloride 1,000 ml @ 30 mls/hr Q24H IV Last administered on 10/28/16 19 :30; Start 10/28/16 at 05:45; Stop 10/29/16 at 11:49; Status DC Dextrose (D50w (Syr) Inj) 50 ml STK-MED ONCE .ROUTE ; Start 10/28/16 at 17:41; Stop 10/28/16 at 17:42; Status DC Insulin Detemir (Levemir Inj) 8 units Q12HR SQ Last administered on 10/29/16 08:28; Start 10/28/16 at 21:00; Stop 11/01/16 at 14:52; Status DC Protein (Beneprotein Powder) 1 pack TID G-TUBE Last administered on 12/14/16 12:08; Start 10/29/16 at 13:00; Stop 12/14/16 at 13:57; Status DC Diltiazem HCl (Cardizem) 60 mg Q6HR PO Last administered on 11/02/16 04:46; Start 10/29/16 at 13:00; Stop 11/02/16 at 07:19; Status DC Levetriacetam (Keppra Liq) 500 mg Q12HR NG Last administered on 12/26/16 22: 02; Start 10/31/16 at 21:00; Stop 12/27/16 at 15:58; Status DC Cisatracurium Besylate (Nimbex Inj) 20 mg ONCE ONCE IV ; Start 11/01/16 at 07: 45; Stop 11/01/16 at 07:55; Status DC Midazolam HCl (Versed Inj) 10 mg ONCE ONCE IV PUSH Last administered on 11:36; Start 11/01/16 at 07:45; Stop 11/01/16 at 07:53; Status DC Fentanyl Citrate (fentaNYL INJ) 250 mcg ONCE ONCE IV PUSH Last administered on 11/01/16 11:37; Start 11/01/16 at 07:45; Stop 11/01/16 at 07:53; Status DC Lactulose (Lactulose Liq) 30 ml QID OG-TUBE Last administered on 11/11/16 12: 28; Start 11/01/16 at 09:00; Stop 11/12/16 at 08:36; Status DC Phenytoin (Dilantin Liq) 100 mg Q8HR PO Last administered on 11/06/16 06:34; Start 11/01/16 at 14:00; Stop 11/06/16 at 12:28; Status DC Cisatracurium Besylate (Nimbex Inj) 20 mg ONCE ONCE IV Last administered on 11:36; Start 11/01/16 at 09:15; Stop 11/01/16 at 09:16; Status DC Oxycodone HCl (Roxicodone Intensol Liq) 10 mg Q4H PRN PO pain 1-6 Last administered on 11/11/16 02:28; Start 11/01/16 at 15:00; Stop 11/24/16 at 11: 19; Status DC Hydromorphone HCl (Dilaudid Pf Inj) 0.5 mg Q4H PRN IV PUSH pain 7-10 or not taking po Last administered on 11/19/16 01:42; Start 11/01/16 at 15:00; Stop 11/29/16 at 12:24; Status DC Haloperidol Lactate (Haldol Inj) 5 mg Q4H PRN IV PUSH agitation; Start at 15:00; Stop 11/29/16 at 14:45; Status DC Melatonin (Melatonin) 5 mg HS PO Last administered on 01/20/17 20:34; Start at 21:00 Diltiazem HCl (Cardizem) 90 mg Q6HR PO Last administered on 01/21/17 05:58; Start 11/02/16 at 12:00 Pharmacy Profile Note 0 ml @ 0 mls/hr UNSCH OTHER ; Start 11/02/16 at 15:30; Stop 11/06/16 at 15:48; Status DC Vancomycin HCl 1250 mg/Sodium Chloride 262.5 ml @ 250 mls/hr Q8H IV Last administered on 11/04/16 02:20; Start 11/02/16 at 18:00; Stop 11/05/16 at 16:14 ; Status DC Cefepime HCl 2000 mg/Sodium Chloride 100 ml @ 200 mls/hr Q8H IV Last administered on 11/06/16 08:42; Start 11/02/16 at 17:00; Stop 11/06/16 at 15:48 ; Status DC Metronidazole 100 ml @ 100 mls/hr Q6H IV Last administered on 11/04/16 09:26 ; Start 11/02/16 at 16:00; Stop 11/04/16 at 11:21; Status DC Miscellaneous Information SPECIFIC LAB TO BE DRAWN:VANCOMYCIN TROUGH DATE TO... ONCE ONCE .XX ; Start 11/03/16 at 17:45; Stop 11/03/16 at 17:46; Status DC Insulin Aspart (NovoLOG SUPPLEMENTAL SCALE) 1 Q12H SQ Last administered on 11/04 00:42; Start 11/03/16 at 12:00; Stop 11/12/16 at 08:40; Status DC Potassium Chloride 100 ml @ 50 mls/hr Q2H IV ; Start 11/03/16 at 15:00; Stop at 16:58; Status DC Miscellaneous Information SPECIFIC LAB TO BE DRAWN:VANCOMYCIN TROUGH DATE TO... ONCE ONCE .XX Last administered on 11/04/16 01:45; Start 11/04/16 at 01:45; Stop 11/04/16 at 01:46; Status DC Sodium Chloride 1,000 ml @ 84 mls/hr [id number] IV Last administered on 13:02; Start 11/04/16 at 11:15; Stop 11/05/16 at 11:14; Status DC Vancomycin HCl 1250 mg/Sodium Chloride 262.5 ml @ 250 mls/hr Q12H IV Last administered on 11/06/16 06:34; Start 11/05/16 at 18:00; Stop 11/06/16 at 15:48 ; Status DC Miscellaneous Information SPECIFIC LAB TO BE LI... ONCE ONCE .XX ; Start 11/07 at 05:45; Stop 11/07/16 at 05:45; Status DC Aztreonam 1000 mg/ Sodium Chloride 100 ml @ 200 mls/hr Q8H IV Last administered on 11/08/16 08:00; Start 11/06/16 at 16:00; Stop 11/08/16 at 12:55 ; Status DC Lactobacillus Acidophilus (Lactinex) 1 tab TID PO Last administered on 12:16; Start 11/06/16 at 18:00; Stop 12/14/16 at 13:57; Status DC Fluconazole (Diflucan) 100 mg DAILY PO Last administered on 11/16/16 09:23; Start 11/06/16 at 16:00; Stop 11/16/16 at 13:20; Status DC Norepinephrine Bitartrate (Levophed Inj) 4 mg STK-MED ONCE .ROUTE ; Start at 02:02; Stop 11/07/16 at 02:03; Status DC Chlorhexidine Gluconate (Hibiclens 4% Top Soln) 1 applic HS TOP Last administered on 11/07/16 23:28; Start 11/07/16 at 21:00; Stop 11/08/16 at 09:58 ; Status DC Prednisone (Deltasone) 20 mg BID PO Last administered on 11/09/16 21:08; Start 11/08/16 at 13:00; Stop 11/09/16 at 21:01; Status DC Levofloxacin (Levaquin) 750 mg DAILY PO Last administered on 11/15/16 08:23; Start 11/08/16 at 13:00; Stop 11/15/16 at 12:59; Status DC Furosemide (Lasix Liq) 20 mg DAILY NG Last administered on 12/01/16 08:38; Start 11/09/16 at 10:30; Stop 12/02/16 at 09:49; Status DC Cefazolin Sodium 1000 mg/Sodium Chloride 100 ml @ 200 mls/hr NOW ONCE IV ; Start 11/12/16 at 15:30; Stop 11/12/16 at 15:59; Status DC Water (Free Water) 200 ml Q6HR G-TUBE Last administered on 11/15/16 18:00; Start 11/14/16 at 18:45; Stop 11/15/16 at 18:50; Status DC Potassium Bicarb/ Potassium Chloride (K-Lyte Cl Eff) 50 meq NOW ONCE PO Last administered on 11/15/16 10:44; Start 11/15/16 at 08:30; Stop 11/15/16 at 08:31 ; Status DC Water (Free Water) 300 ml Q4HR G-TUBE Last administered on 11/20/16 16:00; Start 11/15/16 at 20:00; Stop 11/21/16 at 20:04; Status DC Acetylcysteine (Mucomyst 20% Neb) 2 ml Q6HR NEB NEB Last administered on 04:24; Start 11/16/16 at 10:00; Stop 11/20/16 at 09:59; Status DC Albuterol/ Ipratropium (Duoneb Neb) 1 ampule Q6HR NEB NEB Last administered on 11/20/16 08:04; Start 11/16/16 at 10:00; Stop 11/20/16 at 09:59; Status DC Metoclopramide HCl (Reglan Inj) 10 mg Q8H IV PUSH Last administered on 09:40; Start 11/18/16 at 02:00; Stop 12/02/16 at 09:51; Status DC Ondansetron HCl (Zofran Inj) 4 mg Q6H PRN IV PUSH nausea; Start 11/18/16 at 01: 45; Stop 12/27/16 at 11:33; Status DC Sodium Chloride 1,000 ml @ 999 mls/hr BOLUS ONCE IV Last administered on 11/18 01:58; Start 11/18/16 at 02:00; Stop 11/18/16 at 03:00; Status DC Bacitracin (Baciguent Oint) 1 applic Q12HR TOPICAL Last administered on 08:12; Start 11/18/16 at 11:00 Levofloxacin (Levaquin) 750 mg DAILY PO Last administered on 11/25/16 09:19; Start 11/18/16 at 12:00; Stop 11/25/16 at 11:59; Status DC Sodium Chloride 1,000 ml @ 75 mls/hr [id number] IV Last administered on 01:08; Start 11/18/16 at 13:00; Stop 11/19/16 at 12:59; Status DC Protein (Beneprotein Powder) 1 pack TID G-TUBE Last administered on 01/10/17 18:00; Start 11/19/16 at 09:00; Stop 01/13/17 at 12:47; Status DC Water (Free Water) VOLUME OF WATER: 200 ML Q6HR G-TUBE Last administered on 18:00; Start 11/22/16 at 00:00; Stop 11/26/16 at 18:43; Status DC Albuterol/ Ipratropium (Duoneb Neb) 1 ampule QID NEB NEB Last administered on 11/27/16 11:55; Start 11/23/16 at 16:00; Stop 11/27/16 at 15:59; Status DC Povidone Iodine (Betadine 10% Oint) 1 applic DAILY TOPICAL Last administered on 12/23/16 09:00; Start 11/24/16 at 09:00; Stop 12/24/16 at 12:51; Status DC Oxycodone HCl (Roxicodone Intensol Liq) 10 mg Q4H PRN PO PAIN SCALE 1 TO 6; Start 11/24/16 at 11:30; Stop 11/29/16 at 14:38; Status DC Midazolam HCl (Versed Inj) 5 mg STK-MED ONCE .ROUTE Last administered on 16:24; Start 11/26/16 at 16:24; Stop 11/26/16 at 16:25; Status DC Rocuronium [place] (Zemuron Inj) 100 mg STK-MED ONCE .ROUTE Last administered on 11/26/16 18:19; Start 11/26/16 at 16:24; Stop 11/26/16 at 16:25; Status DC Propofol 50 ml @ As Directed STK-MED ONCE .ROUTE Last administered on 18:29; Start 11/26/16 at 16:53; Stop 11/26/16 at 16:54; Status DC Chlorhexidine Gluconate (Peridex 0.12% Liq) 15 ml BID@08,20 MT Last administered on 01/20/17 08:00; Start 11/26/16 at 20:00 Propofol 100 ml @ 1.668 mls/ hr TITRATE PRN IV SEDATION Last administered on 11/26/16 21:29; Start 11/26/16 at 18:45; Stop 12/12/16 at 16:47; Status DC Fentanyl Citrate (fentaNYL INJ) 100 mcg Q1H PRN IV PUSH any pain; Start at 18:45; Stop 11/29/16 at 14:38; Status DC Fentanyl Citrate 250 ml @ 5 mls/hr TITRATE PRN IV SEDATION Last administered on 11/29/16 06:30; Start 11/26/16 at 18:45; Stop 12/12/16 at 16:47; Status DC Propofol 50 ml @ As Directed STK-MED ONCE .ROUTE Last administered on 18:47; Start 11/26/16 at 18:43; Stop 11/26/16 at 18:44; Status DC Cisatracurium Besylate (Nimbex Inj) 11 mg ONCE ONCE IV PUSH Last administered on 11/26/16 19:30; Start 11/26/16 at 18:45; Stop 11/26/16 at 18:50; Status DC Cisatracurium Besylate 100 mg/ Sodium Chloride 260 ml @ 8.67 mls/hr TITRATE PRN IV TOF 1/4 Last administered on 11/28/16 06:25; Start 11/26/16 at 18:45; Stop 11/28/16 at 10:46; Status DC Epinephrine HCl (EPINEPHrine (1:10,000) INJ) 1 mg STK-MED ONCE .ROUTE ; Start 11/26/16 at 20:06; Stop 11/26/16 at 20:07; Status DC Atropine Sulfate (Atropine Inj) 1 mg STK-MED ONCE .ROUTE ; Start 11/26/16 at 20 :06; Stop 11/26/16 at 20:07; Status DC Lidocaine HCl (Xylocaine 2% Inj) 100 mg STK-MED ONCE .ROUTE ; Start 11/26/16 at 20:07; Stop 11/26/16 at 20:08; Status DC Iohexol (Omnipaque 350 Inj) 95 ml STK-MED ONCE IVCONTRAST Last administered on 11/26/16 20:20; Start 11/26/16 at 20:20; Stop 11/26/16 at 20:21; Status DC Lactated Ringer's 1,000 ml @ 84 mls/hr [id number] IV ; Start 11/26/16 at 23:00; Stop 11/27/16 at 01:37; Status DC Sodium Chloride 500 ml @ 50 mls/hr Q10H IV Last administered on 11/27/16 01: 50; Start 11/27/16 at 01:45; Stop 11/27/16 at 11:44; Status DC Midazolam HCl 100 ml @ 2 mls/hr TITRATE PRN IV SEDATION Last administered on 22:12; Start 11/27/16 at 01:45; Stop 11/29/16 at 14:45; Status DC Midazolam HCl (Versed Inj) 2 mg Q15M PRN IV PUSH SEDATION; Start 11/27/16 at 01:45; Stop 11/29/16 at 14:45; Status DC Lactated Ringer's 1,000 ml @ 84 mls/hr [id number] IV Last administered on 01:17; Start 11/27/16 at 03:15; Stop 12/02/16 at 07:00; Status DC Cisatracurium Besylate 100 mg/ Sodium Chloride 250 ml @ 8.34 mls/hr TITRATE PRN IV TOF 1/4 Last administered on 11/28/16 11:11; Start 11/28/16 at 11:00; Stop 11/28/16 at 14:11; Status DC Sodium Chloride 250 ml @ 15 mls/hr ONCE ONCE IV Last administered on 11:15; Start 11/28/16 at 11:15; Stop 11/29/16 at 03:54; Status DC Epinephrine HCl (EPINEPHrine (1:10,000) INJ) 1 mg STK-MED ONCE .ROUTE ; Start 11/29/16 at 04:20; Stop 11/29/16 at 04:21; Status DC Atropine Sulfate (Atropine Inj) 1 mg STK-MED ONCE .ROUTE ; Start 11/29/16 at 04 :20; Stop 11/29/16 at 04:21; Status DC Lidocaine HCl (Xylocaine 2% Inj) 100 mg STK-MED ONCE .ROUTE ; Start 11/29/16 at 04:20; Stop 11/29/16 at 04:21; Status DC Iohexol (Omnipaque 350 Inj) 70 ml STK-MED ONCE IVCONTRAST Last administered on 11/29/16 05:14; Start 11/29/16 at 05:14; Stop 11/29/16 at 05:15; Status DC Epinephrine HCl (EPINEPHrine (1:10,000) INJ) 1 mg STK-MED ONCE .ROUTE ; Start 11/29/16 at 06:45; Stop 11/29/16 at 06:46; Status DC Epinephrine HCl (EPINEPHrine (1:10,000) INJ) 4 mg STK-MED ONCE .ROUTE ; Start 11/29/16 at 06:48; Stop 11/29/16 at 06:49; Status DC Hydromorphone HCl (Dilaudid Pf Inj) 0.5 mg Q4H PRN IV PUSH pain 7-10 or not taking po; Start 11/29/16 at 12:30; Stop 11/29/16 at 14:38; Status DC Rocuronium [place] (Zemuron Inj) 50 mg STK-MED ONCE .ROUTE Last administered on 11/29/16 12:51; Start 11/29/16 at 12:51; Stop 11/29/16 at 12:52; Status DC Rocuronium [place] (Zemuron Inj) 50 mg STK-MED ONCE .ROUTE Last administered on 11/29/16 13:30; Start 11/29/16 at 13:30; Stop 11/29/16 at 13:31; Status DC Collagenase (Santyl Oint) 1 applic DAILY TOPICAL Last administered on 09:03; Start 11/30/16 at 12:00; Stop 01/17/17 at 08:46; Status DC Albuterol/ Ipratropium (Duoneb Neb) 1 ampule Q6HR NEB NEB Last administered on 12/04/16 09:06; Start 11/30/16 at 16:00; Stop 12/04/16 at 09:12; Status DC Dextrose (D50w (Vial) Inj) 50 ml UNSCH PRN IV PUSH HYPOGLYCEMIA-SEE COMMENTS; Start 11/30/16 at 12:15; Stop 12/02/16 at 19:38; Status DC Glucagon (Glucagon Inj) 1 mg UNSCH PRN OTHER HYPOGLYCEMIA-SEE COMMENTS; Start 11/30/16 at 12:15; Stop 12/02/16 at 19:38; Status DC Insulin Human Regular (NovoLIN R SUPPLEMENTAL SCALE) 1 ACHS SLIDING SCALE SQ ; Start 11/30/16 at 17:00; Stop 12/02/16 at 09:49; Status DC Acetaminophen (Tylenol) 650 mg Q4H PRN PO PAIN OR TEMP >100.4 Last administered on 12/20/16 14:32; Start 11/30/16 at 13:15; Stop 12/27/16 at 11: 35; Status DC Magnesium Sulfate/ Dextrose 100 ml @ 100 mls/hr Q1H IV Last administered on 16:52; Start 12/01/16 at 14:00; Stop 12/01/16 at 15:59; Status DC Potassium Chloride (KCl Powder) 20 meq ONCE ONCE PO ; Start 12/01/16 at 14:00 ; Stop 12/01/16 at 14:01; Status DC Fentanyl Citrate (fentaNYL INJ) 200 mcg STK-MED ONCE .ROUTE Last administered on 12/01/16 15:00; Start 12/01/16 at 14:45; Stop 12/01/16 at 14:46; Status DC Midazolam HCl (Versed Inj) 4 mg STK-MED ONCE .ROUTE Last administered on 15:00; Start 12/01/16 at 14:45; Stop 12/01/16 at 14:46; Status DC Fentanyl Citrate (fentaNYL INJ) 100 mcg STK-MED ONCE .ROUTE Last administered on 12/01/16 15:55; Start 12/01/16 at 15:53; Stop 12/01/16 at 15:54; Status DC Midazolam HCl (Versed Inj) 2 mg STK-MED ONCE .ROUTE Last administered on 16:00; Start 12/01/16 at 15:53; Stop 12/01/16 at 15:54; Status DC Cefazolin Sodium/ Dextrose 50 ml @ As Directed STK-MED ONCE .ROUTE Last administered on 12/01/16 16:00; Start 12/01/16 at 16:03; Stop 12/01/16 at 16 :04; Status DC Iodixanol (VISIPAQUE 320 INJ (Rad Spec)) 65 ml STK-MED ONCE I-ARTERIAL Last administered on 12/01/16 16:15; Start 12/02/16 at 08:47; Stop 12/02/16 at 08 :51; Status DC Potassium Chloride (KCl Powder) 20 meq ONCE ONCE PO ; Start 12/02/16 at 10:00 ; Stop 12/02/16 at 10:02; Status DC Insulin Human Regular (NovoLIN R SUPPLEMENTAL SCALE) 1 Q6HR SQ ; Start at 12:00; Stop 12/02/16 at 19:38; Status DC Magnesium Sulfate/ Dextrose 100 ml @ 100 mls/hr ONCE ONCE IV Last administered on 12/02/16 11:11; Start 12/02/16 at 10:00; Stop 12/02/16 at 10 :59; Status DC Metoclopramide HCl (Reglan Inj) 5 mg Q8H IV PUSH Last administered on 02:28; Start 12/02/16 at 18:00; Stop 12/12/16 at 16:47; Status DC Racepinephrine (Racepinephrine 2.25% Neb) 0.5 ml Q4HR NEB PRN NEB hemoptysis/ stridor; Start 12/03/16 at 15:00; Stop 01/13/17 at 12:47; Status DC Albuterol/ Ipratropium (Duoneb Neb) 1 ampule Q6HR NEB NEB Last administered on 12/08/16 01:13; Start 12/04/16 at 10:00; Stop 12/08/16 at 09:59; Status DC Nitroglycerin (Nitroglycerin 2% Oint) 2 inch Q6H PRN TOPICAL SBP>160, DBP>90; Start 12/04/16 at 09:15 Clonidine (Catapres) 0.1 mg Q8H PO Last administered on 01/10/17 01:22; Start 12/04/16 at 10:00; Stop 01/10/17 at 16:51; Status DC Hydralazine HCl (Apresoline Inj) 10 mg Q1H PRN IV PUSH SBP>160, DBP>90 Last administered on 12/04/16 12:39; Start 12/04/16 at 09:15; Stop 12/16/16 at 15: 01; Status DC Labetalol HCl (Trandate Inj) 10 mg Q1H PRN IV PUSH SBP>160, DBP>90, HR>65; Start 12/04/16 at 09:15; Stop 12/16/16 at 15:01; Status DC Enalaprilat (Vasotec Inj) 1.25 mg Q6H PRN IV PUSH SBP>160, DBP>90; Start 12/04 at 09:15 Sodium Chloride (NS Flush) DAILY IV FLUSH Last administered on 01/09/17 09: 19; Start 12/04/16 at 18:00; Stop 01/13/17 at 12:47; Status DC Sodium Chloride (NS Flush) UNSCH PRN IV FLUSH SEE PROTOCOL; Start 12/04/16 at 18:00; Stop 01/13/17 at 12:47; Status DC Loperamide HCl (Imodium Liq) 2 mg UNSCH PRN PO DIARRHEA; Start 12/14/16 at 10: 45 Lactobacillus Acidophilus (Lactinex) 1 tab TID PO Last administered on 08:12; Start 12/14/16 at 18:00 Famotidine (Pepcid) 20 mg BID PO Last administered on 01/21/17 08:12; Start 12/16/16 at 21:00 Ferrous Sulfate (Ferrous Sulfate) 325 mg BID@12,17 PO Last administered on 01/20 17:03; Start 12/22/16 at 12:00 Ascorbic Acid (Vitamin C) 500 mg BID PO Last administered on 01/21/17 08:12; Start 12/22/16 at 09:00 Chlorhexidine Gluconate (Hibiclens 4% Top Soln) 1 applic HS TOP Last administered on 12/26/16 21:00; Start 12/22/16 at 21:00; Stop 12/26/16 at 21: 01; Status DC Cefazolin Sodium/ Dextrose 50 ml @ 150 mls/hr ONCE ONCE IV Last administered on 12/27/16 08:15; Start 12/27/16 at 06:00; Stop 12/27/16 at 06:19; Status DC Lactated Ringer's 1,000 ml @ 30 mls/hr Q24H PRN IV SEE LABEL COMMENTS; Start 12/26/16 at 15:00; Stop 12/27/16 at 11:25; Status DC Sodium Chloride 500 ml @ 30 mls/hr [id number] PRN IV SEE LABEL COMMENTS; Start at 15:00; Stop 12/27/16 at 11:25; Status DC Metoprolol Tartrate (Lopressor) 25 mg SAS ANALYST PRN PO SEE LABEL COMMENTS; Start 12/26/16 at 15:00; Stop 12/29/16 at 14:59; Status DC Povidone Iodine (Betadine 5% Antisepsis Kit) 1 applic SAS ANALYST PRN EACH NARE SEE LABEL COMMENTS; Start 12/26/16 at 15:00; Stop 12/29/16 at 14:59; Status DC Chlorhexidine Gluconate (Chlorhexidine 2% Cloth) 3 pack SAS ANALYST PRN TOPICAL SEE LABEL COMMENTS; Start 12/26/16 at 15:00; Stop 12/29/16 at 14:59; Status DC Insulin Human Regular (NovoLIN R INJ) See Protocol Table ... SAS ANALYST PRN SQ SEE PROTOCOL TABLE; Start 12/26/16 at 15:00; Stop 12/29/16 at 14:59; Status DC Thrombin (Thrombin Top Soln) 10,000 units STK-MED ONCE .ROUTE Last administered on 12/27/16 10:00; Start 12/27/16 at 07:52; Stop 12/27/16 at 07 :53; Status DC Gelatin (Gelfoam 100 Top) 1 foam STK-MED ONCE .ROUTE Last administered on 12/27 10:00; Start 12/27/16 at 07:53; Stop 12/27/16 at 07:54; Status DC Gentamicin Sulfate (Gentamicin Inj) 240 mg STK-MED ONCE .ROUTE Last administered on 12/27/16 10:00; Start 12/27/16 at 07:53; Stop 12/27/16 at 07 :54; Status DC Lidocaine/ Epinephrine (Xylocaine-Epi 1%-1:100,000 Inj) 20 ml STK-MED ONCE .ROUTE Last administered on 12/27/16 10:00; Start 12/27/16 at 07:54; Stop 12/27/16 at 07:55; Status DC Acetaminophen 100 ml @ As Directed STK-MED ONCE IV ; Start 12/27/16 at 07:57; Stop 12/27/16 at 07:58; Status DC Artificial Tears (Lacrilube Opht Oint) 3.5 applic STK-MED ONCE .ROUTE ; Start 12/27/16 at 07:58; Stop 12/27/16 at 07:59; Status DC Levetriacetam (Keppra Inj) 500 mg STK-MED ONCE IV Last administered on 10:10; Start 12/27/16 at 10:06; Stop 12/27/16 at 10:07; Status DC Potassium Chloride/Sodium Chloride 1,000 ml @ 100 mls/hr Q10H IV Last administered on 01/12/17 10:00; Start 12/27/16 at 11:17; Stop 01/12/17 at 11 :04; Status DC IV Flush (NS Flush) 2 ml UNSCH PRN IVF FLUSH AFTER USING IV ACCESS; Start at 11:30 IV Flush (NS Flush) 2 ml BID IVF Last administered on 01/13/17 08:44; Start 12/27/16 at 21:00; Stop 01/13/17 at 12:47; Status DC Cefazolin Sodium/ Dextrose 50 ml @ 100 mls/hr Q8H IV Last administered on 08:00; Start 12/27/16 at 16:00; Stop 12/28/16 at 08:29; Status DC Levetriacetam 500 mg/Sodium Chloride 105 ml @ 400 mls/hr Q12H IV ; Start 12/27 at 12:00; Status Cancel Bisacodyl (Dulcolax Supp) 10 mg DAILY PRN RECTAL CONSTIPATION; Start 12/27/16 at 11:30 Docusate Sodium (Colace) 100 mg BID PO Last administered on 01/21/17 08:12; Start 12/27/16 at 21:00 Pantoprazole Sodium (Protonix) 40 mg DAILY PO Last administered on 01/13/17 08 :44; Start 12/28/16 at 09:00; Stop 01/13/17 at 12:47; Status DC Pantoprazole Sodium (Protonix Inj) 40 mg DAILY IVP Last administered on 08:44; Start 12/28/16 at 09:00; Stop 01/13/17 at 12:43; Status DC Ondansetron HCl (Zofran Inj) 4 mg Q6H PRN IV PUSH NAUSEA OR VOMITING; Start at 11:30 Calcium Gluconate (Calcium Gluconate Inj) 1 gm UNSCH PRN IV SEE LABEL COMMENTS ; Start 12/27/16 at 11:30; Stop 12/27/16 at 11:31; Status DC Potassium Chloride 100 ml @ 50 mls/hr UNSCH PRN IV POTASSIUM LESS THAN 4; Start 12/27/16 at 11:30; Stop 01/10/17 at 16:51; Status DC Magnesium Sulfate 4 gm/Sodium Chloride 108 ml @ 108 mls/hr UNSCH PRN IV MAGNESIUM LESS THAN 2; Start 12/27/16 at 11:30; Stop 01/10/17 at 16:51; Status DC Acetaminophen/ Hydrocodone Bitart ([place] 10-325 Mg) 1 tab Q4H PRN PO PAIN 1-5 WHEN TOLERATING PO Last administered on 12/30/16 05:54; Start 12/27/16 at 11: 30 Acetaminophen/ Hydrocodone Bitart ([place] 10-325 Mg) 2 tab Q4H PRN PO PAIN 6-10 WHEN TOLERATING PO Last administered on 12/30/16 14:24; Start 12/27/16 at 11: 30 Morphine Sulfate (Morphine Inj) 2 mg Q2H PRN IV PUSH PAIN SCALE 1 TO 6 Last administered on 12/29/16 15:05; Start 12/27/16 at 11:30; Stop 01/13/17 at 12: 43; Status DC Morphine Sulfate (Morphine Inj) 4 mg Q2H PRN IV PUSH PAIN SCALE 7 TO 10 Last administered on 12/28/16 18:00; Start 12/27/16 at 11:30; Stop 01/13/17 at 12: 43; Status DC Acetaminophen (Tylenol) 650 mg Q4H PRN PO TEMPERATURE > 101.5 F; Start at 11:30 Meperidine HCl (*DEMEROL INJ PERIprocedural ONLY) 25 mg STK-MED ONCE .ROUTE Last administered on 12/27/16 11:21; Start 12/27/16 at 11:21; Stop 12/27/16 at 11:22; Status DC Calcium Gluconate 1 gm/Sodium Chloride 110 ml @ 110 mls/hr UNSCH PRN IV SEE LABEL COMMENT; Start 12/27/16 at 12:00; Stop 01/10/17 at 16:51; Status DC Miscellaneous Information ALL NURSING DEPARTME... UNSCH PRN .XX SEE LABEL COMMENTS; Start 12/27/16 at 11:45; Stop 12/28/16 at 11:44; Status DC Levetriacetam 500 mg/Sodium Chloride 105 ml @ 400 mls/hr Q12H IV ; Start 12/27 at 22:00; Status Cancel Levetriacetam (Keppra Liq) 500 mg Q12HR PEG Last administered on 01/13/17 08: 44; Start 12/27/16 at 21:00; Stop 01/13/17 at 12:47; Status DC Iohexol (Omnipaque 350 Inj) 85 ml STK-MED ONCE IVCONTRAST Last administered on 12/28/16t 17:46; Start 12/28/16 at 17:46; Stop 12/28/16 at 17:47; Status DC Bacitracin (Bacitracin Oint Packet) 0.9 gm DAILY TOPICAL Last administered on 01/21/17t 08:12; Start 12/30/16 at 18:31 Date of Insertion: Dec 04, 2016 Line: Central Venous Catheter Side: Left Location: Internal, Jugular A/P Problem List: (1) Subarachnoid hemorrhage due to ruptured aneurysm ICD Code: I60.8 - Other nontraumatic subarachnoid hemorrhage (2) Subdural hematoma ICD Code: I62.00 - Nontraumatic subdural hemorrhage, unspecified (3) Intracranial aneurysm ICD Code: I67.1 - Cerebral aneurysm, nonruptured (4) Respiratory failure ICD Code: J96.90 - Respiratory failure, unspecified, unspecified whether with hypoxia or hypercapnia Status: Acute Assessment and Plan 1. Subdural Hematoma/duraplasty status post left frontotemporal parietal craniotomy 10/08. 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 Initiated . - 10/13 and 10/14 and 10/17) 10/19 left MCA territory vasospasm, status post successful verapamil treatment by IR with 20 mg verapamil - 10/17 CT brain - less hemisphere edema with herniation through left craniotomy site, improved. - Dr. Perry/neurosurgery. S/p left cranioplasty/bone flap 12/27/16. - Echocardiogram 10/14/16 revealed EF 40-45%. Septal hypokinesis. Moderate MR. Severe pulmonary hypertension with pulmonary artery pressures estimated 61 mmHg Limited Echo 11/06: LVEF 60-65%, Trivial mitral and tricuspid regurgitation, No vegetations noted. - On diltiazem's 90 mg by mouth every 6 hours and furosemide 20 mg daily. Monitor BP and if low hold meds. - neurologically stable and doing well, and continued PT and rehabilitation. - PT, OT, speech following. Patient had helmet. Respiratory failure, S/P tracheostomy. Resolved now satting well on Room air. Monitor O2 sat, O2 supplement to keep O2 sat > 94 - S/p Trach Dr. Sullivan/Dr. Collazo 11/01 #8 [place] - CT angiogram chest/neck revealed right centrilobular bleeding likely source right bronchial artery. Repeat CT chest 11/29no visualization of active bleeding.- Resolved - 12/01 - embolization of right bronchial artery by IR- no further bleeding from tracheostomy - Redo trach 11/[address] Sullivan[address]now trach has been removed. - continue neb treatment. - trach removed Lower extremity edema improved. Ultrasound Doppler reviewed and no DVT. Patient with high risk of bleeding and is not chemoprophylaxis at this time. Continue SCDs and teds for DVT prophylaxis. Ileus- Resolved Elevated transaminases Hyperammonemia protein caloric malnutrition-calorie count performed- abnormal psychology teacher recommendations noted; - tube feeding on hold- will leave the PEG in place and continue to monitor. -abnormal psychology teacher following. Right occlusive subclavian, axillary and bilateral superficial cephalic thrombus - limited Echo to evaluate vegetation-neg. 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 Cardizem PO currently and 90 mg every 6 hours (for digital ischemia, Raynaud's) - Continue bacitracin twice a day to affected areas - We'll need to be started on systemic anticoagulation at some point however with recent embolization for hemoptysis holding full anticoagulation at this time. - evaluated by vascular surgery and no interventions recommended at this time. sacral ulcer - ABD dressing with [employer]- staff nurse makes sure to keep area dry. Wound care also consulted. appreciate recommendations. - Turn position every 2 hours - Out of bed to chair activity Course of hospitalization complications Acute hypoxic Respiratory failure secondary to mucous plugging- Resolved Possible healthcare associated pneumonia, Septic Shock- resolved. ARDS - resolved Noncardiogenic/neurogenic pulmonary edema- resolved. Massive Hemoptysis - resolved Aspiration pneumonitis - resolved Cerebral Salt Wasting/SIADH-resolved now hypernatremic - Creatinine currently within normal limits -> resolved. - Monitor urine output Septic and cardiogenic shock- resolved. LV dysfunction secondary to SAH - persistent, now resolved Elevated troponin- secondary to SAH, unlikely to be ACS. - resolved. Pulmonary hypertension s/p PEA arrest 11/28 after ETT dislodgement, hypoxic arrest DVT prop SCD, no chemoprophylaxis secondary to risk for bleeding. clinically no change. continue current care. Problem Qualifiers (1) Respiratory failure: Qualified Codes: J96.00 - Acute respiratory failure, unspecified whether with hypoxia or hypercapnia Kristina Juárez MD Jan 21, 2017 10:55
[2017-01-21] MEDS: FERROUS SULFATE 325 MG (65 MG ELEMENTAL IRON) TAB PO SCH ×2 (11:14→16:29)
[2017-01-21 12:00] VITALS: BP 111/62; PULSE 77; RESP 16; TEMP 97.6; O2SAT 99
[2017-01-21 16:00] VITALS: BP 118/76; PULSE 85; RESP 17; TEMP 97.9; O2SAT 97
[2017-01-21 20:41] VITALS: BP 121/70; PULSE 75; RESP 19; TEMP 98.8; O2SAT 97
[2017-01-21] MEDS: MELATONIN 5 MG TAB PO SCH (22:06)
[2017-01-22 00:19] VITALS: BP 122/75; PULSE 82; RESP 19; TEMP 97.9; O2SAT 98
[2017-01-22] MEDS: DILTIAZEM HCL 90 MG TAB PO SCH ×5 (00:38→23:12)
[2017-01-22 05:26] VITALS: BP 112/72; PULSE 72; RESP 19; TEMP 97.4; O2SAT 98
[2017-01-22] MEDS: CHLORHEXIDINE 0.12% (ORAL KIT) 15 ML CUP MT SCH ×2 (07:41→20:00)
[2017-01-22 08:00] VITALS: BP 121/73; PULSE 71; RESP 17; TEMP 98; O2SAT 97
[2017-01-22] MEDS: BACITRACIN TOP OINT 15 GM TUBE TOPICAL SCH ×2 (09:00→23:13)
[2017-01-22] MEDS: ARTIFICIAL TEARS OPTH SOLN 15 ML BTL EACH EYE SCH ×3 (09:00→16:30)
[2017-01-22] MEDS: DOCUSATE SODIUM 100 MG CAP PO SCH ×2 (09:12→23:12)
[2017-01-22] MEDS: LACTOBACILLUS ACIDOPHILUS TAB PO SCH ×3 (09:12→16:30)
[2017-01-22] MEDS: FAMOTIDINE 20 MG TAB PO SCH ×2 (09:12→23:12)
[2017-01-22] MEDS: BACITRACIN OINT 0.9 GM PKT TOPICAL SCH (09:12)
[2017-01-22] MEDS: ASCORBIC ACID 500 MG TAB PO SCH ×2 (09:12→23:12)
--- NOTE | 2017-01-22 11:23 | HHI.PR ---
Subjective Remarks in no distress. walking in the hallway with PT. clinically no change. Objective Vitals Vital Signs Date Time Temp Pulse Resp B/P (MAP) Pulse Ox O2 Delivery O2 Flow Rate FiO2 01/22/17 08:00 98.0 71 17 121/73 (89) 97 01/22/17 05:26 97.4 72 19 112/72 (85) 98 01/22/17 00:19 97.9 82 19 122/75 (91) 98 01/21/17 20:41 98.8 75 19 121/70 (87) 97 01/21/17 16:00 97.9 85 17 118/76 (90) 97 01/21/17 12:00 97.6 77 16 111/62 (78) 99 I/O 01/21/17 01/21/17 01/21/17 01/22/17 01/22/17 01/22/17 07:00 15:00 23:00 07:00 15:00 23:00 Intake Total 720 ml Output Total 700 ml 375 ml 900 ml Balance -700 ml 345 ml -900 ml Intake Oral 720 ml Output Urine Total 700 ml 375 ml 900 ml # Bowel Movements 0 1 Imaging Last Impressions Lower Extremity Ultrasound 12/29/16 0000 Signed Impressions: Service Date/Time: December 13:07 - CONCLUSION: No sonographic or Doppler findings of deep venous thrombosis. Joni Shelton MD Carotid Artery Ultrasound 12/27/16 0000 Signed Impressions: Service Date/Time: Tuesday, December 27, 2016 17:19 - CONCLUSION: Mild plaque at the carotid bulb regions bilaterally without a significant stenosis seen. Yosvany Alfaro MD Aorta w/Runoff CTA 12/27/16 0000 Signed Impressions: Service Date/Time: Wednesday, December 28, 2016 17:28 - CONCLUSION: Atherosclerotic calcification seen throughout the arterial system without an area of significant stenosis. The trifurcation vessels are only faintly opacified. Yosvany Alfaro MD Modified Barium Swallow 12/23/16 0000 Signed Impressions: Service Date/Time: Friday, December 23, 2016 09:11 - CONCLUSION: Negative for aspiration.. Remington Woodward MD FACR Chest X-Ray 12/04/16 7223 Signed Impressions: Service Date/Time: Sunday, December 04, 2016 18:55 - CONCLUSION: 1. Placement of left central line tip in superior vena cava. No pneumothorax. Mild basilar airspace disease. Small right effusion. Gurwinder Root MD Upper Extremity Ultrasound 12/04/16 Signed Impressions: Service Date/Time: Sunday, December 04, 2016 15:37 - CONCLUSION: 1. Positive for occlusive deep venous thrombosis in the right axillary and subclavian vein. Occlusive superficial thrombus in bilateral cephalic veins. Gurwinder Root MD Angiography 12/01/16 Signed Impressions: Service Date/Time: November 14:02 - CONCLUSION: 1. Right side up on her hemorrhage with angiography of the right bronchial artery revealing no source of active hemorrhage. Empiric embolization was performed. Santos Crockett Jr., MD Chest CT 11/28/16 Signed Impressions: Service Date/Time: Tuesday, November 29, 2016 05:13 - CONCLUSION: 1. Patchy alveolar disease characteristic of edema or pneumonia. 2. Severe emphysema 3. Gastrojejunostomy tube looped in the stomach Harvey Morejon MD Chest/Thorax CTA 11/26/16 Signed Impressions: Service Date/Time: Saturday, November 26, 2016 20:18 - CONCLUSION: 1. Extensive filling defects within the right central bronchial tree characteristic of endobronchial hemorrhage. 2. Consolidating airspace disease in the right upper lobe and right lower lobe characteristic of hemorrhage and post obstructive lung consolidation. 3. Right bronchial artery is identified extending to the central right bronchial region 4. Advanced COPD. Nasir Amanda MD Abdomen X-Ray 11/19/16599 Signed Impressions: Service Date/Time: Saturday, November 19, 2016 02:44 - CONCLUSION: Unchanged bowel gas pattern potentially relating to an ileus. Santos Crockett Jr., MD Transcranial Doppler Study Complete 10/20/16599 Signed Impressions: Service Date/Time: October 07:54 - CONCLUSION: Slight interval elevation of flow velocity measurements and ratio on the left Yosvany Polk MD Liver Ultrasound 10/19/16 Signed Impressions: Service Date/Time: Wednesday, October 19, 2016 11:20 - CONCLUSION: 1. Sludge filled gallbladder with thickened wall. 2. Moderate size bilateral pleural effusions and mild upper abdominal ascites. Santos Vazquez MD Cerebral Arteriogram 9/6/17 0000 Signed Impressions: Service Date/Time: Wednesday, October 19, 2016 12:47 - CONCLUSION: Uncomplicated cerebral arteriography with spasmolytic therapy as described in detail above. Yosvany Polk MD Head CT 10/17/16 0000 Signed Impressions: Service Date/Time: Monday, October 17, 2016 15:06 - CONCLUSION: Ventricles are slightly larger without ventriculostomy. Edema in the left hemisphere the brain herniating through the operative site. Remington Woodward MD FACR Infusion Non-thrombolysis 10/14/16 1103 Signed Impressions: Service Date/Time: Friday, October 14, 2016 10:21 - CONCLUSION: 1. Uncomplicated infusion for spasmolysis Harvey Morejon MD Neck CTA 10/07/16 0000 Signed Impressions: Service Date/Time: Friday, October 07, 2016 15:03 - CONCLUSION: 1. Mild carotid bulb atherosclerotic calcification bilaterally. However, no significant stenosis is present in either internal carotid artery. 2. Paranasal sinus mucoperiosteal thickening. 3. Please refer to brain CTA report for description of the intracranial findings. Yosvany Ramirez MD Head CTA 10/07/16 0000 Signed Impressions: Service Date/Time: Friday, October 07, 2016 15:03 - CONCLUSION: 1. 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 2. Large left subdural hematoma measuring 1.3 cm in depth with a significant, 1.6 cm left to right subfalcine shift. Joni Shelton MD Objective Remarks GENERAL: This is a well-nourished, well-developed patient, in no apparent distress. CARDIOVASCULAR: Regular rate and regular rhythm without murmurs, gallops, or rubs. RESPIRATORY: Clear to auscultation. Breath sounds equal bilaterally. No wheezes , rales, or rhonchi. GASTROINTESTINAL: Abdomen soft, non-tender, nondistended. Normal, active bowel sounds MUSCULOSKELETAL: Extremities without clubbing, cyanosis, or edema. NEURO: awake and alert. Procedures 10/13 Four-vessel cerebral angiography with verapamil treatment of vasospasm Status post left frontotemporal parietal craniectomy 10/08 for evacuation subdural hematoma/duraplasty. 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 parietal cranioplasty with replacement of skull flap by Dr Perry neurosurgery on 12/27/16 Medications and IVs Current Medications Iohexol (Omnipaque 350 Inj) 100 ml STK-MED ONCE IVCONTRAST Last administered on 10/07/16 14:21; Start 10/07/16 at 14:21; Stop 10/07/16 at 15:21; Status DC Mannitol 50 ml @ As Directed STK-MED ONCE .ROUTE ; Start 10/07/16 at 15:25; Stop 10/07/16 at 15:26; Status DC Propofol 0 ml @ As Directed STK-MED ONCE .ROUTE ; Start 10/07/16 at 15:25; Stop 10/07/16 at 15:26; Status DC Levetriacetam (Keppra Inj) 1,000 mg STK-MED ONCE IV Last administered on 18:30; Start 10/07/16 at 15:27; Stop 10/07/16 at 15:28; Status DC Mannitol (Mannitol Inj) 50 gm ONCE ONCE IV Last administered on 10/13/16 21: 00; Start 10/07/16 at 15:30; Stop 10/07/16 at 15:31; Status DC Nicardipine HCl 25 mg/Sodium Chloride 260 ml @ 52 mls/hr Q5H PRN IV Blood pressure management; Start 10/07/16 at 15:40; Stop 10/14/16 at 21:02; Status DC Propofol 100 ml @ 0 mls/hr Q0M PRN IV Ordered RASS Last administered on 23:01; Start 10/07/16 at 15:40; Stop 10/07/16 at 23:16; Status DC Sodium Chloride 1,000 ml @ 75 mls/hr [id number] IV ; Start 10/07/16 at 16:08; Stop 10/07/16 at 18:34; Status DC Sodium Chloride (NS Flush) 2 ml UNSCH PRN IV FLUSH FLUSH AFTER USING IV ACCESS ; Start 10/07/16 at 16:15; Stop 10/07/16 at 18:40; Status DC Sodium Chloride (NS Flush) 2 ml BID IV FLUSH ; Start 10/07/16 at 21:00; Stop at 21:00; Status DC Acetaminophen (Tylenol) 650 mg Q6H PRN PO PAIN 1-10 AND/OR FEVER >101F; Start 10/07/16 at 16:15; Stop 10/07/16 at 19:04; Status DC Albuterol/ Ipratropium (Duoneb Neb) 1 ampule Q6HR NEB NEB Last administered on 10/11/16 15:16; Start 10/07/16 at 22:00; Stop 10/11/16 at 21:59; Status DC Albuterol/ Ipratropium (Duoneb Neb) 1 ampule Q4HR NEB PRN INH SHORTNESS OF BREATH Last administered on 10/14/16 19:33; Start 10/07/16 at 16:15; Stop at 09:43; Status DC Chlorhexidine Gluconate (Peridex 0.12% Liq) 15 ml BID@08,20 MT Last administered on 11/28/16 08:00; Start 10/07/16 at 20:00; Stop 11/28/16 at 11: 18; Status DC Pantoprazole Sodium (Protonix Inj) 40 mg DAILY IV ; Start 10/08/16 at 09:00; Stop 10/08/16 at 09:00; Status DC Miscellaneous Information 1 [id number] ; Start 10/07/16 at 16:15; Stop 10/19/16 at 12:07; Status DC Chlorhexidine Gluconate (Chlorhexidine 2% Cloth) Taper DAILY@04 TOP Last administered on 10/19/16 03:13; Start 10/08/16 at 04:00; Stop 10/19/16 at 12:07; Status DC Chlorhexidine Gluconate (Chlorhexidine 2% Cloth) 3 pack UNSCH PRN TOP HYGIENIC CARE; Start 10/07/16 at 16:15; Stop 10/19/16 at 12:07; Status DC Insulin Aspart (NovoLOG SUPPLEMENTAL SCALE) 1 Q6HR SQ Last administered on 06:40; Start 10/07/16 at 18:00; Stop 10/20/16 at 09:23; Status DC Propofol 100 ml @ 0 mls/hr Q0M PRN IV SEDATION; Start 10/07/16 at 16:08; Status UNV Nimodipine (Nimotop) 60 mg Q4HR OG-TUBE Last administered on 10/12/16 15:18; Start 10/07/16 at 20:00; Stop 10/12/16 at 23:47; Status DC Verapamil HCl (Isoptin Inj) 10 mg STK-MED ONCE .ROUTE ; Start 10/07/16 at 16:45 ; Stop 10/07/16 at 16:46; Status DC Nitroglycerin (Nitroglycerin 2% Oint) 1 inch STK-MED ONCE .ROUTE ; Start at 16:55; Stop 10/07/16 at 16:56; Status DC Heparin Sodium (Porcine) (Heparin Inj) 10,000 units STK-MED ONCE .ROUTE ; Start 10/07/16 at 16:56; Stop 10/07/16 at 16:57; Status DC Potassium Chloride/Sodium Chloride 1,000 ml @ 100 mls/hr Q10H IV Last administered on 10/14/16 07:08; Start 10/07/16 at 18:20; Stop 10/14/16 at 21:02; Status DC IV Flush (NS Flush) 2 ml UNSCH PRN IVF FLUSH AFTER USING IV ACCESS; Start 10/07 at 18:30; Stop 10/19/16 at 12:09; Status DC IV Flush (NS Flush) 2 ml BID IVF Last administered on 10/19/16 09:00; Start at 21:00; Stop 10/19/16 at 12:09; Status DC Cefazolin Sodium/ Dextrose 50 ml @ 100 mls/hr Q8H IV Last administered on 10/08 10:30; Start 10/07/16 at 19:00; Stop 10/08/16 at 11:29; Status DC Levetriacetam 500 mg/Sodium Chloride 105 ml @ 400 mls/hr Q12H IV Last administered on 10/31/16 05:11; Start 10/08/16 at 06:00; Stop 10/31/16 at 10:47 ; Status DC Bisacodyl (Dulcolax Supp) 10 mg DAILY PRN RECTAL CONSTIPATION; Start 10/07/16 at 18:30; Stop 10/31/16 at 10:47; Status DC Docusate Sodium (Colace) 100 mg BID PO Last administered on 10/19/16 09:00; Start 10/07/16 at 21:00; Stop 10/19/16 at 12:15; Status DC Pantoprazole Sodium (Protonix) 40 mg DAILY PO Last administered on 10/14/16 07: 47; Start 10/08/16 at 09:00; Stop 10/19/16 at 09:46; Status DC Pantoprazole Sodium (Protonix Inj) 40 mg DAILY IVP Last administered on 07:45; Start 10/08/16 at 09:00; Stop 10/12/16 at 14:30; Status DC Ondansetron HCl (Zofran Inj) 4 mg Q6H PRN IV NAUSEA OR VOMITING Last administered on 11/13/16 20:31; Start 10/07/16 at 18:30; Stop 12/08/16 at 13: 55; Status DC Calcium Gluconate (Calcium Gluconate Inj) 1 gm UNSCH PRN IV SEE LABEL COMMENTS Last administered on 10/16/16 10:00; Start 10/07/16 at 18:30; Stop 11/17/16 at 14:34; Status DC Potassium Chloride 100 ml @ 50 mls/hr UNSCH PRN IV POTASSIUM LESS THAN 4 Last administered on 12/02/16 08:13; Start 10/07/16 at 18:30; Stop 12/16/16 at 15: 01; Status DC Magnesium Sulfate 4 gm/Sodium Chloride 108 ml @ 108 mls/hr UNSCH PRN IV MAGNESIUM LESS THAN 2; Start 10/07/16 at 18:30; Stop 12/27/16 at 11:35; Status DC Acetaminophen/ Hydrocodone Bitart ([place] 10-325 Mg) 1 tab Q4H PRN PO PAIN SCALE 1 TO 5 Last administered on 10/13/16 13:07; Start 10/07/16 at 18:30; Stop 10/15/16 at 08:05; Status DC Acetaminophen/ Hydrocodone Bitart ([place] 10-325 Mg) 2 tab Q4H PRN PO PAIN SCALE 6 TO 10 Last administered on 10/09/16 10:20; Start 10/07/16 at 18:30; Stop 10/15/16 at 08:05; Status DC Morphine Sulfate (Morphine Inj) 2 mg Q2H PRN IV PUSH PAIN SCALE 1 TO 6 Last administered on 10/10/16 17:52; Start 10/07/16 at 18:30; Stop 10/15/16 at 08:05 ; Status DC Morphine Sulfate (Morphine Inj) 4 mg Q2H PRN IV PUSH PAIN SCALE 7 TO 10 Last administered on 10/08/16 01:55; Start 10/07/16 at 18:30; Stop 10/15/16 at 08:05 ; Status DC Acetaminophen (Tylenol) 650 mg Q4H PRN PO TEMP >100.4 Last administered on 11/14 03:07; Start 10/07/16 at 18:30; Stop 11/30/16 at 13:12; Status DC Iodixanol (VISIPAQUE 320 INJ (Rad Spec)) 65 ml STK-MED ONCE I-ARTERIAL Last administered on 10/07/16 18:38; Start 10/07/16 at 18:38; Stop 10/07/16 at 18:39 ; Status DC Dextrose (D50w (Vial) Inj) 50 ml UNSCH PRN IV PUSH HYPOGLYCEMIA - SEE COMMENTS Last administered on 11/01/16 09:22; Start 10/07/16 at 19:15; Stop 11/12/16 at 08:41; Status DC Glucagon (Glucagon Inj) 1 mg UNSCH PRN OTHER HYPOGLYCEMIA-SEE COMMENTS; Start 10/07/16 at 19:15; Stop 11/12/16 at 08:42; Status DC Midazolam HCl (Versed Inj) 4 mg STK-MED ONCE .ROUTE ; Start 10/07/16 at 19:51; Stop 10/07/16 at 19:52; Status DC Fentanyl Citrate (fentaNYL INJ) 250 mcg STK-MED ONCE .ROUTE ; Start 10/07/16 at 20:32; Stop 10/07/16 at 20:33; Status DC Propofol 100 ml @ 0 mls/hr TITRATE PRN IV Sedation Last administered on 05:31; Start 10/07/16 at 23:15; Stop 11/01/16 at 14:52; Status DC Epinephrine HCl (EPINEPHrine (1:10,000) INJ) 1 mg STK-MED ONCE .ROUTE ; Start at 04:09; Stop 10/09/16 at 04:10; Status DC Atropine Sulfate (Atropine Inj) 1 mg STK-MED ONCE .ROUTE ; Start 10/09/16 at 04: 09; Stop 10/09/16 at 04:10; Status DC Lidocaine HCl (Xylocaine 2% Inj) 100 mg STK-MED ONCE .ROUTE ; Start 10/09/16 at 04:09; Stop 10/09/16 at 04:10; Status DC Nimodipine (Nimotop) 60 mg Q4HR PO Last administered on 11/02/16 20:23; Start 10/13/16 at 00:00; Stop 11/02/16 at 23:59; Status DC Verapamil HCl (Isoptin Inj) 20 mg STK-MED ONCE .ROUTE Last administered on 10/13 17:10; Start 10/13/16 at 17:10; Stop 10/13/16 at 17:11; Status DC Iodixanol (VISIPAQUE 320 INJ (Rad Spec)) 45 ml STK-MED ONCE I-ARTERIAL Last administered on 10/13/16 17:40; Start 10/13/16 at 17:49; Stop 10/13/16 at 17:50 ; Status DC Midazolam HCl (Versed Inj) 2 mg STK-MED ONCE .ROUTE ; Start 10/13/16 at 18:32; Stop 10/13/16 at 18:33; Status DC Fentanyl Citrate (fentaNYL INJ) 200 mcg STK-MED ONCE .ROUTE ; Start 10/13/16 at 18:32; Stop 10/13/16 at 18:33; Status DC Sodium Chloride 2,000 ml @ 0 mls/hr Q0M IV Last administered on 10/14/16 20:20 ; Start 10/13/16 at 21:45; Stop 10/14/16 at 23:59; Status DC Phenylephrine HCl (Neosynephrine Inj) 10 mg STK-MED ONCE .ROUTE Last administered on 10/14/16 09:10; Start 10/14/16 at 09:10; Stop 10/14/16 at 09:11; Status DC Verapamil HCl (Isoptin Inj) 20 mg STK-MED ONCE .ROUTE Last administered on 10:19; Start 10/14/16 at 10:19; Stop 10/14/16 at 10:20; Status DC Fentanyl Citrate (fentaNYL INJ) 100 mcg STK-MED ONCE .ROUTE Last administered on 10/14/16 10:32; Start 10/14/16 at 10:32; Stop 10/14/16 at 10:33; Status DC Midazolam HCl (Versed Inj) 2 mg STK-MED ONCE .ROUTE Last administered on 10:32; Start 10/14/16 at 10:32; Stop 10/14/16 at 10:33; Status DC Midazolam HCl (Versed Inj) 2 mg STK-MED ONCE .ROUTE ; Start 10/14/16 at 10:32; Stop 10/14/16 at 10:33; Status DC Vasopressin 40 units/Dextrose 100 ml @ 4.5 mls/hr [id number] IV Last administered on 10/25/16 02:30; Start 10/14/16 at 11:30; Stop 10/31/16 at 10:47 ; Status DC Albumin Human (Albumin 5% Inj) 25 gm ONCE ONCE IV Last administered on 11:34; Start 10/14/16 at 11:15; Stop 10/14/16 at 11:17; Status DC Iodixanol (VISIPAQUE 320 INJ (Rad Spec)) 10 ml STK-MED ONCE I-ARTERIAL Last administered on 10/14/16 11:06; Start 10/14/16 at 11:06; Stop 10/14/16 at 11:07; Status DC Fludrocortisone Acetate (Florinef) 0.1 mg BID PO Last administered on 10/15/16 11:39; Start 10/14/16 at 11:45; Stop 10/15/16 at 13:17; Status DC Phenylephrine HCl (Neosynephrine Inj) 10 mg STK-MED ONCE .ROUTE Last administered on 10/14/16 12:18; Start 10/14/16 at 12:18; Stop 10/14/16 at 12:19; Status DC Norepinephrine Bitartrate 250 ml @ As Directed STK-MED ONCE IV ; Start 10/14/16 at 13:14; Stop 10/14/16 at 13:15; Status DC Norepinephrine Bitartrate (Levophed Inj) 4 mg STK-MED ONCE .ROUTE Last administered on 10/14/16 13:15; Start 10/14/16 at 13:15; Stop 10/14/16 at 13:16; Status DC Etomidate (Amidate Inj) 20 mg STK-MED ONCE .ROUTE Last administered on 14:18; Start 10/14/16 at 13:44; Stop 10/14/16 at 13:45; Status DC Midazolam HCl (Versed Inj) 5 mg STK-MED ONCE .ROUTE Last administered on 14:18; Start 10/14/16 at 13:44; Stop 10/14/16 at 13:45; Status DC Rocuronium Norris (Zemuron Inj) 50 mg STK-MED ONCE .ROUTE Last administered on 10/14/16 14:17; Start 10/14/16 at 13:45; Stop 10/14/16 at 13:46; Status DC Fentanyl Citrate 250 ml @ 5 mls/hr TITRATE PRN IV SEDATION Last administered on 10/30/16 17:39; Start 10/14/16 at 15:00; Stop 11/01/16 at 14:52; Status DC Phenylephrine HCl (Neosynephrine Inj) 10 mg STK-MED ONCE .ROUTE Last administered on 10/14/16 14:26; Start 10/14/16 at 14:26; Stop 10/14/16 at 14:27; Status DC Norepinephrine Bitartrate 4 mg/ Sodium Chloride 250 ml @ 7.5 mls/hr TITRATE PRN IV Blood pressure management Last administered on 10/15/16 15:05; Start 10/14 at 14:45; Stop 10/15/16 at 14:54; Status DC Terbutaline Sulfate (Brethine Inj) 1 mg UNSCH PRN SQ For Extravasation; Start 10/14/16 at 14:45; Stop 10/19/16 at 12:10; Status DC Rocuronium Norris (Zemuron Inj) 50 mg STK-MED ONCE .ROUTE Last administered on 10/14/16 14:43; Start 10/14/16 at 14:43; Stop 10/14/16 at 14:44; Status DC Midazolam HCl 100 ml @ 2 mls/hr TITRATE PRN IV SEDATION Last administered on 22:54; Start 10/14/16 at 15:00; Stop 10/25/16 at 08:47; Status DC Phenylephrine HCl (Neosynephrine Inj) 10 mg STK-MED ONCE .ROUTE ; Start 10/14/16 at 18:03; Stop 10/14/16 at 18:04; Status DC Phenylephrine HCl 40 mg/Dextrose 500 ml @ 30 mls/hr TITRATE PRN IV Blood pressure management Last administered on 10/15/16 15:02; Start 10/14/16 at 18:30 ; Stop 10/15/16 at 15:36; Status DC Terbutaline Sulfate (Brethine Inj) 1 mg UNSCH PRN SQ For Extravasation; Start 10/14/16 at 18:15; Stop 10/15/16 at 08:05; Status DC Heparin Sodium (Porcine) (Heparin Inj) 5,000 units Q8HR SQ Last administered on 11/13/16 21:20; Start 10/14/16 at 22:00; Status Future Hold Isoproterenol HCl 2 mg/Dextrose 260 ml @ 23.4 mls/hr TITRATE PRN IV Hypotension Last administered on 10/14/16 21:26; Start 10/14/16 at 21:00; Stop at 16:24; Status DC Sodium Chloride 1,000 ml @ 50 mls/hr Q20H IV Last administered on 10/15/16 09: 54; Start 10/14/16 at 21:15; Stop 10/16/16 at 09:17; Status DC Phenylephrine HCl (Neosynephrine Inj) 40 mg STK-MED ONCE .ROUTE ; Start 10/14/16 at 23:30; Stop 10/14/16 at 23:31; Status DC Phenylephrine HCl (Neosynephrine Inj) 10 mg STK-MED ONCE .ROUTE ; Start 10/14/16 at 23:31; Stop 10/14/16 at 23:32; Status DC Epinephrine HCl 2 mg/Dextrose 252 ml @ 22.68 mls/ hr TITRATE PRN IV Blood Pressure Management Last administered on 10/15/16 15:03; Start 10/15/16 at 02:00 ; Stop 10/15/16 at 14:54; Status DC Epinephrine HCl (Adrenalin (1:1000) Inj) 2 mg STK-MED ONCE .ROUTE ; Start at 01:59; Stop 10/15/16 at 02:00; Status DC Lorazepam (Ativan Inj) 2 mg STK-MED ONCE .ROUTE ; Start 10/15/16 at 02:13; Stop 10/15/16 at 02:14; Status DC Epoprostenol Sodium 75 ml/ Sodium Chloride 100 ml @ 8 mls/hr Q8H NEB Last administered on 10/21/16 15:25; Start 10/15/16 at 03:00; Stop 10/21/16 at 16:05; Status DC Lorazepam (Ativan Inj) 2 mg ONCE ONCE IV PUSH Last administered on 10/15/16 03 :33; Start 10/15/16 at 02:30; Stop 10/15/16 at 02:37; Status DC Fosphenytoin Sodium 1000 mgpe/ Sodium Chloride 70 ml @ 280 mls/hr ONCE ONCE IV Last administered on 10/15/16 03:32; Start 10/15/16 at 02:30; Stop 10/15/16 at 02:44; Status DC Fosphenytoin Sodium (Cerebyx Inj) 100 mgpe Q8HR IV Last administered on 06:28; Start 10/15/16 at 10:00; Stop 10/25/16 at 14:25; Status DC Calcium Chloride 1 gm/Sodium Chloride 110 ml @ 110 mls/hr ONCE ONCE IV Last administered on 10/15/16 03:52; Start 10/15/16 at 03:15; Stop 10/15/16 at 04:14; Status DC Pharmacy Profile Note 0 ml @ 0 mls/hr UNSCH OTHER ; Start 10/15/16 at 03:30; Stop 10/18/16 at 07:20; Status DC Cefepime HCl 2000 mg/Sodium Chloride 100 ml @ 200 mls/hr Q8H IV Last administered on 10/18/16 03:34; Start 10/15/16 at 04:00; Stop 10/18/16 at 07:20; Status DC Azithromycin 500 mg/Sodium Chloride 250 ml @ 250 mls/hr Q24H IV Last administered on 10/18/16 03:34; Start 10/15/16 at 04:00; Stop 10/18/16 at 07:20; Status DC Albuterol/ Ipratropium (Duoneb Neb) 1 ampule Q4HR WHILE AWAKE NEB NEB Last administered on 10/18/16 20:21; Start 10/15/16 at 08:00; Stop 10/19/16 at 07:59; Status DC Vancomycin HCl 1000 mg/Sodium Chloride 250 ml @ 250 mls/hr ONCE ONCE IV Last administered on 10/15/16 07:02; Start 10/15/16 at 05:00; Stop 10/15/16 at 05:59; Status DC Hydrocortisone Sodium Succinate (SoluCORTEF INJ) 100 mg Q8H IV PUSH Last administered on 10/22/16 04:34; Start 10/15/16 at 04:00; Stop 10/22/16 at 10:29; Status DC Phenylephrine HCl (Neosynephrine Inj) 20 mg STK-MED ONCE .ROUTE ; Start 10/15/16 at 04:35; Stop 10/15/16 at 04:36; Status DC Sodium Chloride 500 ml @ 30 mls/hr CONTINUOUS IV Last administered on 11:43; Start 10/15/16 at 08:00; Stop 10/22/16 at 10:29; Status DC Calcium Gluconate 2 gm/Sodium Chloride 120 ml @ 120 mls/hr ONCE ONCE IV Last administered on 10/15/16 09:26; Start 10/15/16 at 09:00; Stop 10/15/16 at 09:59; Status DC Albumin Human (Albumin 5% Inj) 12.5 gm STK-MED ONCE IV Last administered on 10/15 09:17; Start 10/15/16 at 09:17; Stop 10/15/16 at 09:18; Status DC Rocuronium Norris (Zemuron Inj) 50 mg STK-MED ONCE .ROUTE Last administered on 10/15/16 09:50; Start 10/15/16 at 09:50; Stop 10/15/16 at 09:51; Status DC Vancomycin HCl 1250 mg/Sodium Chloride 262.5 ml @ 262.5 mls/ hr Q12H IV Last administered on 10/17/16 05:57; Start 10/15/16 at 18:00; Stop 10/17/16 at 09:41; Status DC Miscellaneous Information SPECIFIC LAB TO BE LI... ONCE ONCE .XX Last administered on 10/17/16 05:45; Start 10/17/16 at 05:45; Stop 10/17/16 at 05:46; Status DC Cisatracurium Besylate 100 mg/ Sodium Chloride 260 ml @ 11.24 mls/ hr TITRATE PRN IV TOF 1/ Last administered on 10/21/16 12:59; Start 10/15/16 at 13:00; Stop 10/31/16 at 10:47; Status DC Sodium Chloride 240 meq/Syringe / Bag 60 ml @ 120 mls/hr ONCE ONCE IV Last administered on 10/15/16 13:25; Start 10/15/16 at 13:15; Stop 10/15/16 at 13:44; Status DC Sodium Chloride (Sodium Chloride) 3 gm TID PO Last administered on 11/04/16 10 :18; Start 10/15/16 at 13:15; Stop 11/04/16 at 11:21; Status DC Fludrocortisone Acetate (Florinef) 0.2 mg BID PO Last administered on 10/16/16 08:12; Start 10/15/16 at 21:00; Stop 10/16/16 at 09:12; Status DC Epinephrine HCl 2 mg/Dextrose 252 ml @ 22.68 mls/ hr TITRATE PRN IV Blood Pressure Management; Start 10/15/16 at 15:00; Stop 10/15/16 at 15:32; Status DC Norepinephrine Bitartrate 4 mg/ Sodium Chloride 250 ml @ 7.5 mls/hr TITRATE PRN IV Blood pressure management; Start 10/15/16 at 15:00; Stop 10/15/16 at 15:56 ; Status DC Sodium Chloride 240 meq/Syringe / Bag 60 ml @ 120 mls/hr ONCE ONCE IV Last administered on 10/15/16 15:33; Start 10/15/16 at 15:30; Stop 10/15/16 at 15:59; Status DC Epinephrine HCl 8 mg/Dextrose 250 ml @ 5.62 mls/hr TITRATE PRN IV Blood Pressure Management Last administered on 10/17/16 08:30; Start 10/15/16 at 15:30 ; Stop 10/17/16 at 10:08; Status DC Phenylephrine HCl 160 mg/Dextrose 500 ml @ 7.5 mls/hr TITRATE PRN IV Blood Pressure Management Last administered on 10/18/16 09:34; Start 10/15/16 at 15:45 ; Stop 10/17/16 at 10:08; Status DC Terbutaline Sulfate (Brethine Inj) 1 mg UNSCH PRN SQ FOR EXTRAVASATION PROTOCOL ; Start 10/15/16 at 15:45; Stop 11/01/16 at 07:51; Status DC Norepinephrine Bitartrate 16 mg/ Sodium Chloride 250 ml @ 1.87 mls/hr TITRATE PRN IV Blood pressure management Last administered on 10/17/16 09:11; Start 10/15 at 16:00; Stop 10/17/16 at 10:08; Status DC Calcium Gluconate 3 gm/Sodium Chloride 130 ml @ 120 mls/hr ONCE ONCE IV Last administered on 10/16/16 09:48; Start 10/16/16 at 10:00; Stop 10/16/16 at 11:04; Status DC Sodium Chloride 240 meq/Syringe / Bag 60 ml @ 120 mls/hr ONCE ONCE IV Last administered on 10/16/16 09:48; Start 10/16/16 at 10:00; Stop 10/16/16 at 10:29; Status DC Magnesium Oxide (Mag-Ox) 800 mg UNSCH PRN PO For Magnesium 1.2 - 1.6 mg/dL; Start 10/16/16 at 09:15; Stop 11/25/16 at 09:51; Status DC Magnesium Sulfate 4 gm/Sodium Chloride 100 ml @ 50 mls/hr UNSCH PRN IV For Magnesium 0.9 - 1.1 mg/dL; Start 10/16/16 at 09:15; Stop 11/25/16 at 09:51; Status DC Magnesium Sulfate 2 gm/Sodium Chloride 100 ml @ 50 mls/hr UNSCH PRN IV For Magnesium 1.2 - 1.6 mg/dL; Start 10/16/16 at 09:15; Stop 11/25/16 at 09:51; Status DC Potassium Chloride 100 ml @ 50 mls/hr Q2H PRN IV For Potassium 2.8 - 3.2 mEq/ L Last administered on 11/15/16 12:36; Start 10/16/16 at 09:15; Stop 11/25/16 at 09:51; Status DC Potassium Chloride 100 ml @ 50 mls/hr Q2H PRN IV For Potassium 3.3 - 3.5 mEq/L ; Start 10/16/16 at 09:15; Stop 11/25/16 at 09:51; Status DC Potassium Chloride 100 ml @ 50 mls/hr Q2H PRN IV For Potassium 2.8 - 3.2 mEq/ L Last administered on 10/27/16 13:26; Start 10/16/16 at 09:15; Stop 11/25/16 at 09:51; Status DC Potassium Chloride 100 ml @ 25 mls/hr UNSCH PRN IV For Potassium 3.3 - 3.5 mEq /L Last administered on 10/30/16 06:06; Start 10/16/16 at 09:15; Stop 11/25/16 at 09:51; Status DC Potassium Phosphate (K-Phos) 2,000 mg Q4H PRN PO For Phosphorus < 2.5 mg/dL; Start 10/16/16 at 09:15; Stop 11/25/16 at 09:51; Status DC Potassium Phosphate (K-Phos) 2,000 mg UNSCH PRN PO/TUBE SEE LABEL COMMENTS; Start 10/16/16 at 09:15; Stop 11/25/16 at 09:51; Status DC Potassium Phosphate 30 mmol/ Sodium Chloride 260 ml @ 42 mls/hr UNSCH PRN IV SEE LABEL COMMENTS Last administered on 10/24/16 20:39; Start 10/16/16 at 09:15 ; Stop 11/25/16 at 09:51; Status DC Sodium Phosphate 30 mmol/Sodium Chloride 250 ml @ 42 mls/hr UNSCH PRN IV For Phosphorus < 2.5 mg/dL Last administered on 10/22/16 06:46; Start 10/16/16 at 09: 15; Stop 11/25/16 at 09:51; Status DC Furosemide (Lasix Inj) 40 mg STK-MED ONCE .ROUTE Last administered on 10/16/16 13:27; Start 10/16/16 at 13:27; Stop 10/16/16 at 13:28; Status DC Vancomycin HCl 1250 mg/Sodium Chloride 262.5 ml @ 250 mls/hr Q8H IV Last administered on 10/18/16 06:10; Start 10/17/16 at 14:00; Stop 10/18/16 at 07:20; Status DC Miscellaneous Information SPECIFIC LAB TO BE LI... ONCE ONCE .XX Last administered on 10/18/16 05:45; Start 10/18/16 at 05:45; Stop 10/18/16 at 05:46; Status DC Sodium Chloride 1,000 ml @ 999 mls/hr BOLUS ONCE IV Last administered on 10:45; Start 10/17/16 at 11:00; Stop 10/17/16 at 12:00; Status DC Epinephrine HCl 8 mg/Dextrose 250 ml @ 5.62 mls/hr TITRATE PRN IV Blood Pressure Management; Start 10/17/16 at 10:15; Status Cancel Norepinephrine Bitartrate 16 mg/ Sodium Chloride 250 ml @ 1.87 mls/hr TITRATE PRN IV Blood pressure management Last administered on 10/20/16 01:07; Start 10/17 at 10:15; Stop 10/31/16 at 10:47; Status DC Phenylephrine HCl 160 mg/Dextrose 500 ml @ 7.5 mls/hr TITRATE PRN IV Blood Pressure Management Last administered on 10/23/16 14:21; Start 10/17/16 at 10:15 ; Stop 10/29/16 at 11:49; Status DC Epinephrine HCl 8 mg/Dextrose 250 ml @ 5.62 mls/hr TITRATE PRN IV Blood Pressure Management Last administered on 10/20/16 15:14; Start 10/17/16 at 11:15 ; Stop 10/29/16 at 11:49; Status DC Heparin Sodium (Porcine) (*HEPARIN INJ Periprocedural ONLY) 10,000 units STK- MED ONCE .ROUTE Last administered on 10/17/16 14:54; Start 10/17/16 at 14:54; Stop 10/17/16 at 14:55; Status DC Verapamil HCl (Isoptin Inj) 20 mg STK-MED ONCE .ROUTE Last administered on 15:34; Start 10/17/16 at 15:34; Stop 10/17/16 at 15:35; Status DC Iodixanol (VISIPAQUE 320 INJ (Rad Spec)) 40 ml STK-MED ONCE I-ARTERIAL Last administered on 10/17/16 16:00; Start 10/17/16 at 16:31; Stop 10/17/16 at 16:32; Status DC Sodium Chloride 1,000 ml @ 100 mls/hr Q10H IV Last administered on 10/18/16 03 :35; Start 10/17/16 at 18:00; Stop 10/18/16 at 07:06; Status DC Potassium Chloride (KCl Powder) 60 meq ONCE ONCE NG Last administered on 08:52; Start 10/18/16 at 09:00; Stop 10/18/16 at 09:01; Status DC Calcium Gluconate 1 gm/Sodium Chloride 110 ml @ 110 mls/hr UNSCH PRN IV For Protein Corrected Calcium Last administered on 10/18/16 10:22; Start 10/18/16 at 09:45; Stop 12/27/16 at 11:31; Status DC Gentamicin Sulfate (Gentamicin Inj) 240 mg STK-MED ONCE IRRIGATION ; Start 10/07 at 12:00; Stop 10/18/16 at 12:13; Status DC Thrombin (Thrombin Top Soln) 5,000 units STK-MED ONCE TOPICAL ; Start 10/07/16 at 12:00; Stop 10/18/16 at 12:13; Status DC Gelatin (Gelfoam 100 Top) 1 foam STK-MED ONCE OTHER ; Start 10/07/16 at 12:00; Stop 10/18/16 at 12:13; Status DC Propofol (Diprivan 200 Mg/20 ml Inj) 200 mg STK-MED ONCE IV ; Start 10/07/16 at 12:00; Stop 10/18/16 at 12:16; Status DC Ephedrine Sulfate (ePHEDrine/NS 25 MG/5 ML SYR) 25 mg STK-MED ONCE IV ; Start at 12:00; Stop 10/18/16 at 12:16; Status DC Phenylephrine HCl (Neosynephrine/ NS 1000 Mcg/10ml Syr) 1,000 mcg STK-MED ONCE IV ; Start 10/07/16 at 12:00; Stop 10/18/16 at 12:16; Status DC Lactated Ringer's 1,000 ml @ As Directed STK-MED ONCE IV ; Start 10/07/16 at 12 :00; Stop 10/18/16 at 12:16; Status DC Milrinone Lactate 20 mg/Sodium Chloride 100 ml @ 12.42 mls/ hr Q8H4M IV Last administered on 10/22/16 09:23; Start 10/18/16 at 16:21; Stop 10/22/16 at 19:37; Status DC Lansoprazole (Prevacid Odt) 30 mg DAILY NG Last administered on 12/16/16 08:54 ; Start 10/20/16 at 09:00; Stop 12/16/16 at 15:01; Status DC Lansoprazole (Prevacid Odt) 30 mg ONCE ONCE NG Last administered on 10/19/16 12:11; Start 10/19/16 at 12:00; Stop 10/19/16 at 12:02; Status DC Sodium Chloride (NS Flush) 2 ml UNSCH PRN IV FLUSH FLUSH AFTER USING IV ACCESS ; Start 10/19/16 at 09:45; Stop 12/27/16 at 11:24; Status DC Sodium Chloride (NS Flush) 2 ml BID IV FLUSH Last administered on 12/26/16 22 :03; Start 10/19/16 at 21:00; Stop 12/27/16 at 11:24; Status DC Artificial Tears (Tears Naturale Opth Soln) 1 drop TID EACH EYE Last administered on 01/22/17 09:00; Start 10/19/16 at 13:00 Ondansetron HCl (Zofran Inj) 4 mg Q6H PRN IV NAUSEA OR VOMITING; Start 10/19/16 at 09:45; Status UNV Albuterol/ Ipratropium (Duoneb Neb) 1 ampule Q6HR NEB INH Last administered on 10/23/16 08:36; Start 10/19/16 at 12:00; Stop 10/23/16 at 11:59; Status DC Albuterol Sulfate (Albuterol Neb) 2.5 mg Q2HR NEB PRN INH SOB/WHEEZING Last administered on 11/22/16 22:09; Start 10/19/16 at 09:45 Miscellaneous Information 1 [id number] ; Start 10/19/16 at 09:45; Stop 01/13/17 at 12:47; Status DC Chlorhexidine Gluconate (Chlorhexidine 2% Cloth) Taper DAILY@04 TOP Last administered on 12/24/16 04:00; Start 10/20/16 at 04:00; Stop 01/13/17 at 12:47 ; Status DC Chlorhexidine Gluconate (Chlorhexidine 2% Cloth) 3 pack UNSCH PRN TOP HYGIENIC CARE; Start 10/19/16 at 09:45; Stop 01/13/17 at 12:47; Status DC Docusate Sodium (Colace Liq) 100 mg Q12HR PO Last administered on 10/30/16 07: 55; Start 10/19/16 at 21:00; Stop 10/31/16 at 10:47; Status DC Sennosides (Senna Liq) 8.8 mg BID PO Last administered on 10/29/16 20:15; Start 10/19/16 at 21:00; Stop 10/31/16 at 10:47; Status DC Polyethylene Glycol (Miralax) 17 gm BID OG-TUBE Last administered on 10/29/16 20:15; Start 10/19/16 at 21:00; Stop 10/31/16 at 10:47; Status DC Pharmacy Profile Note 0 ml @ 0 mls/hr UNSCH OTHER ; Start 10/19/16 at 10:15; Stop 10/24/16 at 11:41; Status DC Piperacillin Sod/ Tazobactam Sod 100 ml @ 200 mls/hr Q6H IV Last administered on 10/23/16 05:39; Start 10/19/16 at 12:00; Stop 10/23/16 at 09:43; Status DC Vancomycin HCl 1500 mg/Sodium Chloride 515 ml @ 257.5 mls/ hr Q8H IV Last administered on 10/22/16 04:38; Start 10/19/16 at 13:00; Stop 10/22/16 at 13:55; Status DC Miscellaneous Information SPECIFIC LAB TO BE DRAWN:VANCOMYCIN TROUGH DATE TO... ONCE ONCE .XX Last administered on 10/20/16 12:45; Start 10/20/16 at 12:45; Stop 10/20/16 at 12:46; Status DC Verapamil HCl (Isoptin Inj) 5 mg STK-MED ONCE .ROUTE ; Start 10/19/16 at 12:44; Stop 10/19/16 at 12:45; Status DC Verapamil HCl (Isoptin Inj) 15 mg STK-MED ONCE .ROUTE ; Start 10/19/16 at 12:44; Stop 10/19/16 at 12:45; Status DC Iodixanol (VISIPAQUE 320 INJ (Rad Spec)) 30 ml STK-MED ONCE I-ARTERIAL Last administered on 10/19/16 13:50; Start 10/19/16 at 14:05; Stop 10/19/16 at 14:06; Status DC Lactulose (Lactulose Liq) 30 ml BID OG-TUBE Last administered on 10/31/16 20: 30; Start 10/20/16 at 21:00; Stop 11/01/16 at 07:51; Status DC Mineral Oil (Kondremul Liq) 30 ml ONCE ONCE PO ; Start 10/20/16 at 09:15; Stop 10/20/16 at 09:16; Status Cancel Methylnaltrexone Norris (Relistor Inj) 12 mg ONCE ONCE SQ Last administered on 10/20/16 14:17; Start 10/20/16 at 09:15; Stop 10/20/16 at 09:39; Status DC Insulin Aspart (NovoLOG SUPPLEMENTAL SCALE) 1 Q4HR SQ Last administered on 10/27 11:57; Start 10/20/16 at 12:00; Stop 11/03/16 at 12:42; Status DC Multivitamins 10 ml/Folic Acid 1 mg/Amino Acids/ Electrolytes/ Dextrose 2,010.2 ml @ 30 mls/hr Q24H IV-CENTRAL Last administered on 10/28/16 20:01; Start 10/20/16 at 20:00; Stop 10/31/16 at 10:47; Status DC Fat Emulsion Intravenous 250 ml @ 10 mls/hr Q24H IV-CENTRAL Last administered on 10/29/16 19:58; Start 10/20/16 at 20:00; Stop 10/31/16 at 10:47; Status DC Mineral Oil (Mineral Oil Liq) 30 ml ONCE ONCE PO ; Start 10/20/16 at 14:00; Stop 10/20/16 at 14:01; Status Cancel Mineral Oil (Mineral Oil Liq) 30 ml ONCE ONCE PO Last administered on 15:32; Start 10/20/16 at 14:00; Stop 10/20/16 at 14:01; Status DC Potassium Phosphate 30 mmol/ Sodium Chloride 260 ml @ 43.333 mls/ hr ONCE ONCE IV ; Start 10/20/16 at 18:00; Stop 10/20/16 at 23:59; Status DC Potassium Chloride 100 ml @ 25 mls/hr BOLUS ONCE IV Last administered on 17:17; Start 10/20/16 at 17:00; Stop 10/20/16 at 20:59; Status DC Miscellaneous Information SPECIFIC LAB TO BE LI... ONCE ONCE .XX Last administered on 10/22/16 12:45; Start 10/22/16 at 12:45; Stop 10/22/16 at 12:46; Status DC Diltiazem HCl 125 mg/Sodium Chloride 125 ml @ 5 mls/hr TITRATE PRN IV Tachycardia Last administered on 10/27/16 08:13; Start 10/22/16 at 10:30; Stop 10/28/16 at 18:49; Status DC Hydrocortisone Sodium Succinate (SoluCORTEF INJ) 75 mg Q8H IV PUSH Last administered on 10/24/16 04:05; Start 10/22/16 at 12:00; Stop 10/24/16 at 09:40 ; Status DC Milrinone Lactate 20 mg/Sodium Chloride 100 ml @ 9.79 mls/hr [id number] IV Last administered on 10/30/16 03:35; Start 10/22/16 at 10:23; Stop 11/01/16 at 07:51 ; Status DC Furosemide (Lasix Inj) 40 mg NOW ONCE IV PUSH Last administered on 10/22/16 14 :46; Start 10/22/16 at 14:30; Stop 10/22/16 at 14:31; Status DC Furosemide 100 mg/ Sodium Chloride 100 ml @ 10 mls/hr CONTINUOUS IV Last administered on 10/24/16 01:16; Start 10/22/16 at 15:00; Stop 10/24/16 at 11:17 ; Status DC Vancomycin HCl 1500 mg/Sodium Chloride 515 ml @ 257.5 mls/ hr Q12H IV Last administered on 10/23/16 08:32; Start 10/23/16 at 09:00; Stop 10/23/16 at 09:43 ; Status DC Potassium Chloride 100 ml @ 25 mls/hr Q4H IV Last administered on 10/22/16 18: 05; Start 10/22/16 at 15:00; Stop 10/22/16 at 22:59; Status DC Miscellaneous Information SPECIFIC LAB TO BE ... ONCE ONCE .XX ; Start 10/25 at 08:45; Stop 10/25/16 at 08:45; Status DC Potassium Chloride 100 ml @ 25 mls/hr Q4H IV Last administered on 10/23/16 19 :46; Start 10/23/16 at 18:30; Stop 10/24/16 at 02:29; Status DC Hydrocortisone Sodium Succinate (SoluCORTEF INJ) 50 mg Q12H IV PUSH Last administered on 10/25/16 04:42; Start 10/24/16 at 16:00; Stop 10/25/16 at 08:37 ; Status DC Insulin Detemir (Levemir Inj) 12 units Q12HR SQ Last administered on 10/28/16 09:23; Start 10/24/16 at 09:45; Stop 10/28/16 at 18:30; Status DC Furosemide 100 mg/ Sodium Chloride 100 ml @ 5 mls/hr CONTINUOUS IV Last administered on 10/27/16 08:12; Start 10/24/16 at 12:00; Stop 10/27/16 at 08:59 ; Status DC Hydrocortisone Sodium Succinate (SoluCORTEF INJ) 25 mg Q12H IV PUSH Last administered on 10/27/16 04:14; Start 10/25/16 at 16:00; Stop 10/27/16 at 08:59 ; Status DC Acetazolamide Sodium (Diamox Inj) 500 mg DAILY IV PUSH Last administered on 08:15; Start 10/25/16 at 09:00; Stop 10/28/16 at 03:25; Status DC Phenytoin Sodium (Dilantin Inj) 100 mg Q8HR IV Last administered on 11/01/16 05:30; Start 10/25/16 at 22:00; Stop 11/01/16 at 07:52; Status DC Furosemide (Lasix Inj) 40 mg DAILY IV PUSH Last administered on 11/09/16 09:11 ; Start 10/28/16 at 09:00; Stop 11/09/16 at 10:18; Status DC Sodium Chloride 1,000 ml @ 30 mls/hr Q24H IV Last administered on 10/28/16 19 :30; Start 10/28/16 at 05:45; Stop 10/29/16 at 11:49; Status DC Dextrose (D50w (Syr) Inj) 50 ml STK-MED ONCE .ROUTE ; Start 10/28/16 at 17:41; Stop 10/28/16 at 17:42; Status DC Insulin Detemir (Levemir Inj) 8 units Q12HR SQ Last administered on 10/29/16 08:28; Start 10/28/16 at 21:00; Stop 11/01/16 at 14:52; Status DC Protein (Beneprotein Powder) 1 pack TID G-TUBE Last administered on 12/14/16 12:08; Start 10/29/16 at 13:00; Stop 12/14/16 at 13:57; Status DC Diltiazem HCl (Cardizem) 60 mg Q6HR PO Last administered on 11/02/16 04:46; Start 10/29/16 at 13:00; Stop 11/02/16 at 07:19; Status DC Levetriacetam (Keppra Liq) 500 mg Q12HR NG Last administered on 12/26/16 22: 02; Start 10/31/16 at 21:00; Stop 12/27/16 at 15:58; Status DC Cisatracurium Besylate (Nimbex Inj) 20 mg ONCE ONCE IV ; Start 11/01/16 at 07: 45; Stop 11/01/16 at 07:55; Status DC Midazolam HCl (Versed Inj) 10 mg ONCE ONCE IV PUSH Last administered on 11:36; Start 11/01/16 at 07:45; Stop 11/01/16 at 07:53; Status DC Fentanyl Citrate (fentaNYL INJ) 250 mcg ONCE ONCE IV PUSH Last administered on 11/01/16 11:37; Start 11/01/16 at 07:45; Stop 11/01/16 at 07:53; Status DC Lactulose (Lactulose Liq) 30 ml QID OG-TUBE Last administered on 11/11/16 12: 28; Start 11/01/16 at 09:00; Stop 11/12/16 at 08:36; Status DC Phenytoin (Dilantin Liq) 100 mg Q8HR PO Last administered on 11/06/16 06:34; Start 11/01/16 at 14:00; Stop 11/06/16 at 12:28; Status DC Cisatracurium Besylate (Nimbex Inj) 20 mg ONCE ONCE IV Last administered on 11:36; Start 11/01/16 at 09:15; Stop 11/01/16 at 09:16; Status DC Oxycodone HCl (Roxicodone Intensol Liq) 10 mg Q4H PRN PO pain 1-6 Last administered on 11/11/16 02:28; Start 11/01/16 at 15:00; Stop 11/24/16 at 11: 19; Status DC Hydromorphone HCl (Dilaudid Pf Inj) 0.5 mg Q4H PRN IV PUSH pain 7-10 or not taking po Last administered on 11/19/16 01:42; Start 11/01/16 at 15:00; Stop 11/29/16 at 12:24; Status DC Haloperidol Lactate (Haldol Inj) 5 mg Q4H PRN IV PUSH agitation; Start at 15:00; Stop 11/29/16 at 14:45; Status DC Melatonin (Melatonin) 5 mg HS PO Last administered on 01/21/17 22:06; Start at 21:00 Diltiazem HCl (Cardizem) 90 mg Q6HR PO Last administered on 01/22/17 05:08; Start 11/02/16 at 12:00 Pharmacy Profile Note 0 ml @ 0 mls/hr UNSCH OTHER ; Start 11/02/16 at 15:30; Stop 11/06/16 at 15:48; Status DC Vancomycin HCl 1250 mg/Sodium Chloride 262.5 ml @ 250 mls/hr Q8H IV Last administered on 11/04/16 02:20; Start 11/02/16 at 18:00; Stop 11/05/16 at 16:14 ; Status DC Cefepime HCl 2000 mg/Sodium Chloride 100 ml @ 200 mls/hr Q8H IV Last administered on 11/06/16 08:42; Start 11/02/16 at 17:00; Stop 11/06/16 at 15:48 ; Status DC Metronidazole 100 ml @ 100 mls/hr Q6H IV Last administered on 11/04/16 09:26 ; Start 11/02/16 at 16:00; Stop 11/04/16 at 11:21; Status DC Miscellaneous Information SPECIFIC LAB TO BE DRAWN:VANCOMYCIN TROUGH DATE TO... ONCE ONCE .XX ; Start 11/03/16 at 17:45; Stop 11/03/16 at 17:46; Status DC Insulin Aspart (NovoLOG SUPPLEMENTAL SCALE) 1 Q12H SQ Last administered on 11/04 00:42; Start 11/03/16 at 12:00; Stop 11/12/16 at 08:40; Status DC Potassium Chloride 100 ml @ 50 mls/hr Q2H IV ; Start 11/03/16 at 15:00; Stop at 16:58; Status DC Miscellaneous Information SPECIFIC LAB TO BE DRAWN:VANCOMYCIN TROUGH DATE TO... ONCE ONCE .XX Last administered on 11/04/16 01:45; Start 11/04/16 at 01:45; Stop 11/04/16 at 01:46; Status DC Sodium Chloride 1,000 ml @ 84 mls/hr [id number] IV Last administered on 13:02; Start 11/04/16 at 11:15; Stop 11/05/16 at 11:14; Status DC Vancomycin HCl 1250 mg/Sodium Chloride 262.5 ml @ 250 mls/hr Q12H IV Last administered on 11/06/16 06:34; Start 11/05/16 at 18:00; Stop 11/06/16 at 15:48 ; Status DC Miscellaneous Information SPECIFIC LAB TO BE LI... ONCE ONCE .XX ; Start 11/07 at 05:45; Stop 11/07/16 at 05:45; Status DC Aztreonam 1000 mg/ Sodium Chloride 100 ml @ 200 mls/hr Q8H IV Last administered on 11/08/16 08:00; Start 11/06/16 at 16:00; Stop 11/08/16 at 12:55 ; Status DC Lactobacillus Acidophilus (Lactinex) 1 tab TID PO Last administered on 12:16; Start 11/06/16 at 18:00; Stop 12/14/16 at 13:57; Status DC Fluconazole (Diflucan) 100 mg DAILY PO Last administered on 11/16/16 09:23; Start 11/06/16 at 16:00; Stop 11/16/16 at 13:20; Status DC Norepinephrine Bitartrate (Levophed Inj) 4 mg STK-MED ONCE .ROUTE ; Start at 02:02; Stop 11/07/16 at 02:03; Status DC Chlorhexidine Gluconate (Hibiclens 4% Top Soln) 1 applic HS TOP Last administered on 11/07/16 23:28; Start 11/07/16 at 21:00; Stop 11/08/16 at 09:58 ; Status DC Prednisone (Deltasone) 20 mg BID PO Last administered on 11/09/16 21:08; Start 11/08/16 at 13:00; Stop 11/09/16 at 21:01; Status DC Levofloxacin (Levaquin) 750 mg DAILY PO Last administered on 11/15/16 08:23; Start 11/08/16 at 13:00; Stop 11/15/16 at 12:59; Status DC Furosemide (Lasix Liq) 20 mg DAILY NG Last administered on 12/01/16 08:38; Start 11/09/16 at 10:30; Stop 12/02/16 at 09:49; Status DC Cefazolin Sodium 1000 mg/Sodium Chloride 100 ml @ 200 mls/hr NOW ONCE IV ; Start 11/12/16 at 15:30; Stop 11/12/16 at 15:59; Status DC Water (Free Water) 200 ml Q6HR G-TUBE Last administered on 11/15/16 18:00; Start 11/14/16 at 18:45; Stop 11/15/16 at 18:50; Status DC Potassium Bicarb/ Potassium Chloride (K-Lyte Cl Eff) 50 meq NOW ONCE PO Last administered on 11/15/16 10:44; Start 11/15/16 at 08:30; Stop 11/15/16 at 08:31 ; Status DC Water (Free Water) 300 ml Q4HR G-TUBE Last administered on 11/20/16 16:00; Start 11/15/16 at 20:00; Stop 11/21/16 at 20:04; Status DC Acetylcysteine (Mucomyst 20% Neb) 2 ml Q6HR NEB NEB Last administered on 04:24; Start 11/16/16 at 10:00; Stop 11/20/16 at 09:59; Status DC Albuterol/ Ipratropium (Duoneb Neb) 1 ampule Q6HR NEB NEB Last administered on 11/20/16 08:04; Start 11/16/16 at 10:00; Stop 11/20/16 at 09:59; Status DC Metoclopramide HCl (Reglan Inj) 10 mg Q8H IV PUSH Last administered on 09:40; Start 11/18/16 at 02:00; Stop 12/02/16 at 09:51; Status DC Ondansetron HCl (Zofran Inj) 4 mg Q6H PRN IV PUSH nausea; Start 11/18/16 at 01: 45; Stop 12/27/16 at 11:33; Status DC Sodium Chloride 1,000 ml @ 999 mls/hr BOLUS ONCE IV Last administered on 11/18 01:58; Start 11/18/16 at 02:00; Stop 11/18/16 at 03:00; Status DC Bacitracin (Baciguent Oint) 1 applic Q12HR TOPICAL Last administered on 09:00; Start 11/18/16 at 11:00 Levofloxacin (Levaquin) 750 mg DAILY PO Last administered on 11/25/16 09:19; Start 11/18/16 at 12:00; Stop 11/25/16 at 11:59; Status DC Sodium Chloride 1,000 ml @ 75 mls/hr [id number] IV Last administered on 01:08; Start 11/18/16 at 13:00; Stop 11/19/16 at 12:59; Status DC Protein (Beneprotein Powder) 1 pack TID G-TUBE Last administered on 01/10/17 18:00; Start 11/19/16 at 09:00; Stop 01/13/17 at 12:47; Status DC Water (Free Water) VOLUME OF WATER: 200 ML Q6HR G-TUBE Last administered on 18:00; Start 11/22/16 at 00:00; Stop 11/26/16 at 18:43; Status DC Albuterol/ Ipratropium (Duoneb Neb) 1 ampule QID NEB NEB Last administered on 11/27/16 11:55; Start 11/23/16 at 16:00; Stop 11/27/16 at 15:59; Status DC Povidone Iodine (Betadine 10% Oint) 1 applic DAILY TOPICAL Last administered on 12/23/16 09:00; Start 11/24/16 at 09:00; Stop 12/24/16 at 12:51; Status DC Oxycodone HCl (Roxicodone Intensol Liq) 10 mg Q4H PRN PO PAIN SCALE 1 TO 6; Start 11/24/16 at 11:30; Stop 11/29/16 at 14:38; Status DC Midazolam HCl (Versed Inj) 5 mg STK-MED ONCE .ROUTE Last administered on 16:24; Start 11/26/16 at 16:24; Stop 11/26/16 at 16:25; Status DC Rocuronium Norris (Zemuron Inj) 100 mg STK-MED ONCE .ROUTE Last administered on 11/26/16 18:19; Start 11/26/16 at 16:24; Stop 11/26/16 at 16:25; Status DC Propofol 50 ml @ As Directed STK-MED ONCE .ROUTE Last administered on 18:29; Start 11/26/16 at 16:53; Stop 11/26/16 at 16:54; Status DC Chlorhexidine Gluconate (Peridex 0.12% Liq) 15 ml BID@08,20 MT Last administered on 01/20/17 08:00; Start 11/26/16 at 20:00 Propofol 100 ml @ 1.668 mls/ hr TITRATE PRN IV SEDATION Last administered on 11/26/16 21:29; Start 11/26/16 at 18:45; Stop 12/12/16 at 16:47; Status DC Fentanyl Citrate (fentaNYL INJ) 100 mcg Q1H PRN IV PUSH any pain; Start at 18:45; Stop 11/29/16 at 14:38; Status DC Fentanyl Citrate 250 ml @ 5 mls/hr TITRATE PRN IV SEDATION Last administered on 11/29/16 06:30; Start 11/26/16 at 18:45; Stop 12/12/16 at 16:47; Status DC Propofol 50 ml @ As Directed STK-MED ONCE .ROUTE Last administered on 18:47; Start 11/26/16 at 18:43; Stop 11/26/16 at 18:44; Status DC Cisatracurium Besylate (Nimbex Inj) 11 mg ONCE ONCE IV PUSH Last administered on 11/26/16 19:30; Start 11/26/16 at 18:45; Stop 11/26/16 at 18:50; Status DC Cisatracurium Besylate 100 mg/ Sodium Chloride 260 ml @ 8.67 mls/hr TITRATE PRN IV TOF 1/4 Last administered on 11/28/16 06:25; Start 11/26/16 at 18:45; Stop 11/28/16 at 10:46; Status DC Epinephrine HCl (EPINEPHrine (1:10,000) INJ) 1 mg STK-MED ONCE .ROUTE ; Start 11/26/16 at 20:06; Stop 11/26/16 at 20:07; Status DC Atropine Sulfate (Atropine Inj) 1 mg STK-MED ONCE .ROUTE ; Start 11/26/16 at 20 :06; Stop 11/26/16 at 20:07; Status DC Lidocaine HCl (Xylocaine 2% Inj) 100 mg STK-MED ONCE .ROUTE ; Start 11/26/16 at 20:07; Stop 11/26/16 at 20:08; Status DC Iohexol (Omnipaque 350 Inj) 95 ml STK-MED ONCE IVCONTRAST Last administered on 11/26/16 20:20; Start 11/26/16 at 20:20; Stop 11/26/16 at 20:21; Status DC Lactated Ringer's 1,000 ml @ 84 mls/hr [id number] IV ; Start 11/26/16 at 23:00; Stop 11/27/16 at 01:37; Status DC Sodium Chloride 500 ml @ 50 mls/hr Q10H IV Last administered on 11/27/16 01: 50; Start 11/27/16 at 01:45; Stop 11/27/16 at 11:44; Status DC Midazolam HCl 100 ml @ 2 mls/hr TITRATE PRN IV SEDATION Last administered on 22:12; Start 11/27/16 at 01:45; Stop 11/29/16 at 14:45; Status DC Midazolam HCl (Versed Inj) 2 mg Q15M PRN IV PUSH SEDATION; Start 11/27/16 at 01:45; Stop 11/29/16 at 14:45; Status DC Lactated Ringer's 1,000 ml @ 84 mls/hr [id number] IV Last administered on 01:17; Start 11/27/16 at 03:15; Stop 12/02/16 at 07:00; Status DC Cisatracurium Besylate 100 mg/ Sodium Chloride 250 ml @ 8.34 mls/hr TITRATE PRN IV TOF 1/4 Last administered on 11/28/16 11:11; Start 11/28/16 at 11:00; Stop 11/28/16 at 14:11; Status DC Sodium Chloride 250 ml @ 15 mls/hr ONCE ONCE IV Last administered on 11:15; Start 11/28/16 at 11:15; Stop 11/29/16 at 03:54; Status DC Epinephrine HCl (EPINEPHrine (1:10,000) INJ) 1 mg STK-MED ONCE .ROUTE ; Start 11/29/16 at 04:20; Stop 11/29/16 at 04:21; Status DC Atropine Sulfate (Atropine Inj) 1 mg STK-MED ONCE .ROUTE ; Start 11/29/16 at 04 :20; Stop 11/29/16 at 04:21; Status DC Lidocaine HCl (Xylocaine 2% Inj) 100 mg STK-MED ONCE .ROUTE ; Start 11/29/16 at 04:20; Stop 11/29/16 at 04:21; Status DC Iohexol (Omnipaque 350 Inj) 70 ml STK-MED ONCE IVCONTRAST Last administered on 11/29/16 05:14; Start 11/29/16 at 05:14; Stop 11/29/16 at 05:15; Status DC Epinephrine HCl (EPINEPHrine (1:10,000) INJ) 1 mg STK-MED ONCE .ROUTE ; Start 11/29/16 at 06:45; Stop 11/29/16 at 06:46; Status DC Epinephrine HCl (EPINEPHrine (1:10,000) INJ) 4 mg STK-MED ONCE .ROUTE ; Start 11/29/16 at 06:48; Stop 11/29/16 at 06:49; Status DC Hydromorphone HCl (Dilaudid Pf Inj) 0.5 mg Q4H PRN IV PUSH pain 7-10 or not taking po; Start 11/29/16 at 12:30; Stop 11/29/16 at 14:38; Status DC Rocuronium Norris (Zemuron Inj) 50 mg STK-MED ONCE .ROUTE Last administered on 11/29/16 12:51; Start 11/29/16 at 12:51; Stop 11/29/16 at 12:52; Status DC Rocuronium Norris (Zemuron Inj) 50 mg STK-MED ONCE .ROUTE Last administered on 11/29/16 13:30; Start 11/29/16 at 13:30; Stop 11/29/16 at 13:31; Status DC Collagenase (Santyl Oint) 1 applic DAILY TOPICAL Last administered on 09:03; Start 11/30/16 at 12:00; Stop 01/17/17 at 08:46; Status DC Albuterol/ Ipratropium (Duoneb Neb) 1 ampule Q6HR NEB NEB Last administered on 12/04/16 09:06; Start 11/30/16 at 16:00; Stop 12/04/16 at 09:12; Status DC Dextrose (D50w (Vial) Inj) 50 ml UNSCH PRN IV PUSH HYPOGLYCEMIA-SEE COMMENTS; Start 11/30/16 at 12:15; Stop 12/02/16 at 19:38; Status DC Glucagon (Glucagon Inj) 1 mg UNSCH PRN OTHER HYPOGLYCEMIA-SEE COMMENTS; Start 11/30/16 at 12:15; Stop 12/02/16 at 19:38; Status DC Insulin Human Regular (NovoLIN R SUPPLEMENTAL SCALE) 1 ACHS SLIDING SCALE SQ ; Start 11/30/16 at 17:00; Stop 12/02/16 at 09:49; Status DC Acetaminophen (Tylenol) 650 mg Q4H PRN PO PAIN OR TEMP >100.4 Last administered on 12/20/16 14:32; Start 11/30/16 at 13:15; Stop 12/27/16 at 11: 35; Status DC Magnesium Sulfate/ Dextrose 100 ml @ 100 mls/hr Q1H IV Last administered on 16:52; Start 12/01/16 at 14:00; Stop 12/01/16 at 15:59; Status DC Potassium Chloride (KCl Powder) 20 meq ONCE ONCE PO ; Start 12/01/16 at 14:00 ; Stop 12/01/16 at 14:01; Status DC Fentanyl Citrate (fentaNYL INJ) 200 mcg STK-MED ONCE .ROUTE Last administered on 12/01/16 15:00; Start 12/01/16 at 14:45; Stop 12/01/16 at 14:46; Status DC Midazolam HCl (Versed Inj) 4 mg STK-MED ONCE .ROUTE Last administered on 15:00; Start 12/01/16 at 14:45; Stop 12/01/16 at 14:46; Status DC Fentanyl Citrate (fentaNYL INJ) 100 mcg STK-MED ONCE .ROUTE Last administered on 12/01/16 15:55; Start 12/01/16 at 15:53; Stop 12/01/16 at 15:54; Status DC Midazolam HCl (Versed Inj) 2 mg STK-MED ONCE .ROUTE Last administered on 16:00; Start 12/01/16 at 15:53; Stop 12/01/16 at 15:54; Status DC Cefazolin Sodium/ Dextrose 50 ml @ As Directed STK-MED ONCE .ROUTE Last administered on 12/01/16 16:00; Start 12/01/16 at 16:03; Stop 12/01/16 at 16 :04; Status DC Iodixanol (VISIPAQUE 320 INJ (Rad Spec)) 65 ml STK-MED ONCE I-ARTERIAL Last administered on 12/01/16 16:15; Start 12/02/16 at 08:47; Stop 12/02/16 at 08 :51; Status DC Potassium Chloride (KCl Powder) 20 meq ONCE ONCE PO ; Start 12/02/16 at 10:00 ; Stop 12/02/16 at 10:02; Status DC Insulin Human Regular (NovoLIN R SUPPLEMENTAL SCALE) 1 Q6HR SQ ; Start at 12:00; Stop 12/02/16 at 19:38; Status DC Magnesium Sulfate/ Dextrose 100 ml @ 100 mls/hr ONCE ONCE IV Last administered on 12/02/16 11:11; Start 12/02/16 at 10:00; Stop 12/02/16 at 10 :59; Status DC Metoclopramide HCl (Reglan Inj) 5 mg Q8H IV PUSH Last administered on 02:28; Start 12/02/16 at 18:00; Stop 12/12/16 at 16:47; Status DC Racepinephrine (Racepinephrine 2.25% Neb) 0.5 ml Q4HR NEB PRN NEB hemoptysis/ stridor; Start 12/03/16 at 15:00; Stop 01/13/17 at 12:47; Status DC Albuterol/ Ipratropium (Duoneb Neb) 1 ampule Q6HR NEB NEB Last administered on 12/08/16 01:13; Start 12/04/16 at 10:00; Stop 12/08/16 at 09:59; Status DC Nitroglycerin (Nitroglycerin 2% Oint) 2 inch Q6H PRN TOPICAL SBP>160, DBP>90; Start 12/04/16 at 09:15 Clonidine (Catapres) 0.1 mg Q8H PO Last administered on 01/10/17 01:22; Start 12/04/16 at 10:00; Stop 01/10/17 at 16:51; Status DC Hydralazine HCl (Apresoline Inj) 10 mg Q1H PRN IV PUSH SBP>160, DBP>90 Last administered on 12/04/16 12:39; Start 12/04/16 at 09:15; Stop 12/16/16 at 15: 01; Status DC Labetalol HCl (Trandate Inj) 10 mg Q1H PRN IV PUSH SBP>160, DBP>90, HR>65; Start 12/04/16 at 09:15; Stop 12/16/16 at 15:01; Status DC Enalaprilat (Vasotec Inj) 1.25 mg Q6H PRN IV PUSH SBP>160, DBP>90; Start 12/04 at 09:15 Sodium Chloride (NS Flush) DAILY IV FLUSH Last administered on 01/09/17 09: 19; Start 12/04/16 at 18:00; Stop 01/13/17 at 12:47; Status DC Sodium Chloride (NS Flush) UNSCH PRN IV FLUSH SEE PROTOCOL; Start 12/04/16 at 18:00; Stop 01/13/17 at 12:47; Status DC Loperamide HCl (Imodium Liq) 2 mg UNSCH PRN PO DIARRHEA; Start 12/14/16 at 10: 45 Lactobacillus Acidophilus (Lactinex) 1 tab TID PO Last administered on 09:12; Start 12/14/16 at 18:00 Famotidine (Pepcid) 20 mg BID PO Last administered on 01/22/17 09:12; Start 12/16/16 at 21:00 Ferrous Sulfate (Ferrous Sulfate) 325 mg BID@12,17 PO Last administered on 01/21 16:29; Start 12/22/16 at 12:00 Ascorbic Acid (Vitamin C) 500 mg BID PO Last administered on 01/22/17 09:12; Start 12/22/16 at 09:00 Chlorhexidine Gluconate (Hibiclens 4% Top Soln) 1 applic HS TOP Last administered on 12/26/16 21:00; Start 12/22/16 at 21:00; Stop 12/26/16 at 21: 01; Status DC Cefazolin Sodium/ Dextrose 50 ml @ 150 mls/hr ONCE ONCE IV Last administered on 12/27/16 08:15; Start 12/27/16 at 06:00; Stop 12/27/16 at 06:19; Status DC Lactated Ringer's 1,000 ml @ 30 mls/hr Q24H PRN IV SEE LABEL COMMENTS; Start 12/26/16 at 15:00; Stop 12/27/16 at 11:25; Status DC Sodium Chloride 500 ml @ 30 mls/hr [id number] PRN IV SEE LABEL COMMENTS; Start at 15:00; Stop 12/27/16 at 11:25; Status DC Metoprolol Tartrate (Lopressor) 25 mg DISK RECORDIST PRN PO SEE LABEL COMMENTS; Start 12/26/16 at 15:00; Stop 12/29/16 at 14:59; Status DC Povidone Iodine (Betadine 5% Antisepsis Kit) 1 applic DISK RECORDIST PRN EACH NARE SEE LABEL COMMENTS; Start 12/26/16 at 15:00; Stop 12/29/16 at 14:59; Status DC Chlorhexidine Gluconate (Chlorhexidine 2% Cloth) 3 pack DISK RECORDIST PRN TOPICAL SEE LABEL COMMENTS; Start 12/26/16 at 15:00; Stop 12/29/16 at 14:59; Status DC Insulin Human Regular (NovoLIN R INJ) See Protocol Table ... DISK RECORDIST PRN SQ SEE PROTOCOL TABLE; Start 12/26/16 at 15:00; Stop 12/29/16 at 14:59; Status DC Thrombin (Thrombin Top Soln) 10,000 units STK-MED ONCE .ROUTE Last administered on 12/27/16 10:00; Start 12/27/16 at 07:52; Stop 12/27/16 at 07 :53; Status DC Gelatin (Gelfoam 100 Top) 1 foam STK-MED ONCE .ROUTE Last administered on 12/27 10:00; Start 12/27/16 at 07:53; Stop 12/27/16 at 07:54; Status DC Gentamicin Sulfate (Gentamicin Inj) 240 mg STK-MED ONCE .ROUTE Last administered on 12/27/16 10:00; Start 12/27/16 at 07:53; Stop 12/27/16 at 07 :54; Status DC Lidocaine/ Epinephrine (Xylocaine-Epi 1%-1:100,000 Inj) 20 ml STK-MED ONCE .ROUTE Last administered on 12/27/16 10:00; Start 12/27/16 at 07:54; Stop 12/27/16 at 07:55; Status DC Acetaminophen 100 ml @ As Directed STK-MED ONCE IV ; Start 12/27/16 at 07:57; Stop 12/27/16 at 07:58; Status DC Artificial Tears (Lacrilube Opht Oint) 3.5 applic STK-MED ONCE .ROUTE ; Start 12/27/16 at 07:58; Stop 12/27/16 at 07:59; Status DC Levetriacetam (Keppra Inj) 500 mg STK-MED ONCE IV Last administered on 10:10; Start 12/27/16 at 10:06; Stop 12/27/16 at 10:07; Status DC Potassium Chloride/Sodium Chloride 1,000 ml @ 100 mls/hr Q10H IV Last administered on 01/12/17 10:00; Start 12/27/16 at 11:17; Stop 01/12/17 at 11 :04; Status DC IV Flush (NS Flush) 2 ml UNSCH PRN IVF FLUSH AFTER USING IV ACCESS; Start at 11:30 IV Flush (NS Flush) 2 ml BID IVF Last administered on 01/13/17 08:44; Start 12/27/16 at 21:00; Stop 01/13/17 at 12:47; Status DC Cefazolin Sodium/ Dextrose 50 ml @ 100 mls/hr Q8H IV Last administered on 08:00; Start 12/27/16 at 16:00; Stop 12/28/16 at 08:29; Status DC Levetriacetam 500 mg/Sodium Chloride 105 ml @ 400 mls/hr Q12H IV ; Start 12/27 at 12:00; Status Cancel Bisacodyl (Dulcolax Supp) 10 mg DAILY PRN RECTAL CONSTIPATION; Start 12/27/16 at 11:30 Docusate Sodium (Colace) 100 mg BID PO Last administered on 01/22/17 09:12; Start 12/27/16 at 21:00 Pantoprazole Sodium (Protonix) 40 mg DAILY PO Last administered on 01/13/17 08 :44; Start 12/28/16 at 09:00; Stop 01/13/17 at 12:47; Status DC Pantoprazole Sodium (Protonix Inj) 40 mg DAILY IVP Last administered on 08:44; Start 12/28/16 at 09:00; Stop 01/13/17 at 12:43; Status DC Ondansetron HCl (Zofran Inj) 4 mg Q6H PRN IV PUSH NAUSEA OR VOMITING; Start at 11:30 Calcium Gluconate (Calcium Gluconate Inj) 1 gm UNSCH PRN IV SEE LABEL COMMENTS ; Start 12/27/16 at 11:30; Stop 12/27/16 at 11:31; Status DC Potassium Chloride 100 ml @ 50 mls/hr UNSCH PRN IV POTASSIUM LESS THAN 4; Start 12/27/16 at 11:30; Stop 01/10/17 at 16:51; Status DC Magnesium Sulfate 4 gm/Sodium Chloride 108 ml @ 108 mls/hr UNSCH PRN IV MAGNESIUM LESS THAN 2; Start 12/27/16 at 11:30; Stop 01/10/17 at 16:51; Status DC Acetaminophen/ Hydrocodone Bitart ([place] 10-325 Mg) 1 tab Q4H PRN PO PAIN 1-5 WHEN TOLERATING PO Last administered on 12/30/16 05:54; Start 12/27/16 at 11: 30 Acetaminophen/ Hydrocodone Bitart ([place] 10-325 Mg) 2 tab Q4H PRN PO PAIN 6-10 WHEN TOLERATING PO Last administered on 12/30/16 14:24; Start 12/27/16 at 11: 30 Morphine Sulfate (Morphine Inj) 2 mg Q2H PRN IV PUSH PAIN SCALE 1 TO 6 Last administered on 12/29/16 15:05; Start 12/27/16 at 11:30; Stop 01/13/17 at 12: 43; Status DC Morphine Sulfate (Morphine Inj) 4 mg Q2H PRN IV PUSH PAIN SCALE 7 TO 10 Last administered on 12/28/16 18:00; Start 12/27/16 at 11:30; Stop 01/13/17 at 12: 43; Status DC Acetaminophen (Tylenol) 650 mg Q4H PRN PO TEMPERATURE > 101.5 F; Start at 11:30 Meperidine HCl (*DEMEROL INJ PERIprocedural ONLY) 25 mg STK-MED ONCE .ROUTE Last administered on 12/27/16 11:21; Start 12/27/16 at 11:21; Stop 12/27/16 at 11:22; Status DC Calcium Gluconate 1 gm/Sodium Chloride 110 ml @ 110 mls/hr UNSCH PRN IV SEE LABEL COMMENT; Start 12/27/16 at 12:00; Stop 01/10/17 at 16:51; Status DC Miscellaneous Information ALL NURSING DEPARTME... UNSCH PRN .XX SEE LABEL COMMENTS; Start 12/27/16 at 11:45; Stop 12/28/16 at 11:44; Status DC Levetriacetam 500 mg/Sodium Chloride 105 ml @ 400 mls/hr Q12H IV ; Start 12/27 at 22:00; Status Cancel Levetriacetam (Keppra Liq) 500 mg Q12HR PEG Last administered on 01/13/17 08: 44; Start 12/27/16 at 21:00; Stop 01/13/17 at 12:47; Status DC Iohexol (Omnipaque 350 Inj) 85 ml STK-MED ONCE IVCONTRAST Last administered on 12/28/16 17:46; Start 12/28/16 at 17:46; Stop 12/28/16 at 17:47; Status DC Bacitracin (Bacitracin Oint Packet) 0.9 gm DAILY TOPICAL Last administered on 01/22/17 09:12; Start 12/30/16 at 18:31 Date of Insertion: Dec 04, 2016 Line: Central Venous Catheter Side: Left Location: Internal, Jugular A/P Problem List: (1) Subarachnoid hemorrhage due to ruptured aneurysm ICD Code: I60.8 - Other nontraumatic subarachnoid hemorrhage (2) Subdural hematoma ICD Code: I62.00 - Nontraumatic subdural hemorrhage, unspecified (3) Intracranial aneurysm ICD Code: I67.1 - Cerebral aneurysm, nonruptured (4) Respiratory failure ICD Code: J96.90 - Respiratory failure, unspecified, unspecified whether with hypoxia or hypercapnia Status: Acute Assessment and Plan 1. Subdural Hematoma/duraplasty status post left frontotemporal parietal craniotomy 10/08. 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 Initiated . - 10/13 and 10/14 and 10/17) 10/19 left MCA territory vasospasm, status post successful verapamil treatment by IR with 20 mg verapamil - 10/17 CT brain - less hemisphere edema with herniation through left craniotomy site, improved. - Dr. Perry/neurosurgery. S/p left cranioplasty/bone flap 12/27/16. - Echocardiogram 10/14/16 revealed EF 40-45%. Septal hypokinesis. Moderate MR. Severe pulmonary hypertension with pulmonary artery pressures estimated 61 mmHg Limited Echo 11/06: LVEF 60-65%, Trivial mitral and tricuspid regurgitation, No vegetations noted. - On diltiazem's 90 mg by mouth every 6 hours and furosemide 20 mg daily. Monitor BP and if low hold meds. - neurologically stable and doing well, and continued PT and rehabilitation. - PT, OT, speech following. Patient had helmet. Respiratory failure, S/P tracheostomy. Resolved now satting well on Room air. Monitor O2 sat, O2 supplement to keep O2 sat > 94 - S/p Trach Dr. Sullivan/Dr. Collazo 11/01 #8 [place] - CT angiogram chest/neck revealed right centrilobular bleeding likely source right bronchial artery. Repeat CT chest 11/29no visualization of active bleeding.- Resolved - 12/01 - embolization of right bronchial artery by IR- no further bleeding from tracheostomy - Redo trach 11/[address] Sullivan[address]now trach has been removed. - continue neb treatment. - trach removed Lower extremity edema improved. Ultrasound Doppler reviewed and no DVT. Patient with high risk of bleeding and is not chemoprophylaxis at this time. Continue SCDs and teds for DVT prophylaxis. Ileus- Resolved Elevated transaminases Hyperammonemia protein caloric malnutrition-calorie count performed- gameroom technician recommendations noted; - tube feeding on hold- will leave the PEG in place and continue to monitor. -gameroom technician following. Right occlusive subclavian, axillary and bilateral superficial cephalic thrombus - limited Echo to evaluate vegetation-neg. 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 Cardizem PO currently and 90 mg every 6 hours (for digital ischemia, Raynaud's) - Continue bacitracin twice a day to affected areas - We'll need to be started on systemic anticoagulation at some point however with recent embolization for hemoptysis holding full anticoagulation at this time. - evaluated by vascular surgery and no interventions recommended at this time. sacral ulcer - ABD dressing with [employer]- staff nurse makes sure to keep area dry. Wound care also consulted. appreciate recommendations. - Turn position every 2 hours - Out of bed to chair activity DVT prophylaxis with SCD, no chemoprophylaxis secondary to risk for bleeding. clinically no change. continue current care. Course of hospitalization complications Acute hypoxic Respiratory failure secondary to mucous plugging- Resolved Possible healthcare associated pneumonia, Septic Shock- resolved. ARDS - resolved Noncardiogenic/neurogenic pulmonary edema- resolved. Massive Hemoptysis - resolved Aspiration pneumonitis - resolved Cerebral Salt Wasting/SIADH-resolved now hypernatremic - Creatinine currently within normal limits -> resolved. - Monitor urine output Septic and cardiogenic shock- resolved. LV dysfunction secondary to SAH - persistent, now resolved Elevated troponin- secondary to SAH, unlikely to be ACS. - resolved. Pulmonary hypertension s/p PEA arrest 11/28 after ETT dislodgement, hypoxic arrest Problem Qualifiers (1) Respiratory failure: Qualified Codes: J96.00 - Acute respiratory failure, unspecified whether with hypoxia or hypercapnia Kristina Juárez MD Jan 22, 2017 11:23
[2017-01-22] MEDS: FERROUS SULFATE 325 MG (65 MG ELEMENTAL IRON) TAB PO SCH ×2 (11:28→16:30)
[2017-01-22 12:00] VITALS: BP 112/68; PULSE 79; RESP 17; TEMP 97.4; O2SAT 99
[2017-01-22 16:00] VITALS: BP 116/70; PULSE 77; RESP 17; TEMP 98; O2SAT 98
[2017-01-22 20:00] VITALS: BP 120/69; PULSE 72; RESP 20; TEMP 98; O2SAT 98
[2017-01-22] MEDS: MELATONIN 5 MG TAB PO SCH (23:12)
[2017-01-23] VITALS (7 sets, daily range): BP systolic 109–124; BP diastolic 67–77; PULSE 64–87; RESP 16–20; TEMP 97.9–98.2; O2SAT 97–100
[2017-01-23] MEDS: DILTIAZEM HCL 90 MG TAB PO SCH ×4 (06:19→23:43)
[2017-01-23] MEDS: CHLORHEXIDINE 0.12% (ORAL KIT) 15 ML CUP MT SCH ×2 (08:00→20:00)
[2017-01-23] MEDS: BACITRACIN OINT 0.9 GM PKT TOPICAL SCH (09:00)
[2017-01-23] MEDS: BACITRACIN TOP OINT 15 GM TUBE TOPICAL SCH ×2 (09:00→21:00)
[2017-01-23] MEDS: ARTIFICIAL TEARS OPTH SOLN 15 ML BTL EACH EYE SCH ×3 (09:49→17:52)
[2017-01-23] MEDS: FAMOTIDINE 20 MG TAB PO SCH ×2 (09:49→23:44)
[2017-01-23] MEDS: ASCORBIC ACID 500 MG TAB PO SCH ×2 (09:49→23:43)
[2017-01-23] MEDS: LACTOBACILLUS ACIDOPHILUS TAB PO SCH ×3 (09:49→17:50)
[2017-01-23] MEDS: DOCUSATE SODIUM 100 MG CAP PO SCH ×2 (09:49→23:44)
--- NOTE | 2017-01-23 10:59 | HHI.PR ---
Subjective Remarks in no acute distress. resting comfortably with no distress. Objective Vitals Vital Signs Date Time Temp Pulse Resp B/P (MAP) Pulse Ox O2 Delivery O2 Flow Rate FiO2 01/23/17 08:00 67 18 109/67 (81) 99 01/23/17 04:55 98.2 64 20 121/74 (90) 97 01/23/17 01:19 97.9 66 20 115/74 (88) 97 01/22/17 20:00 98.0 72 20 120/69 (86) 98 01/22/17 16:00 98.0 77 17 116/70 (85) 98 01/22/17 12:00 97.4 79 17 112/68 (83) 99 I/O 01/22/17 01/22/17 01/22/17 01/23/17 01/23/17 01/23/17 07:00 15:00 23:00 07:00 15:00 23:00 Intake Total 480 ml Output Total 900 ml 550 ml 1100 ml Balance -900 ml -70 ml -1100 ml Intake Oral 480 ml Output Urine Total 900 ml 550 ml 1100 ml # Bowel Movements 0 Imaging Last Impressions Lower Extremity Ultrasound 12/29/16 0000 Signed Impressions: Service Date/Time: December 13:07 - CONCLUSION: No sonographic or Doppler findings of deep venous thrombosis. Joni Shelton MD Carotid Artery Ultrasound 12/27/16 0000 Signed Impressions: Service Date/Time: Tuesday, December 27, 2016 17:19 - CONCLUSION: Mild plaque at the carotid bulb regions bilaterally without a significant stenosis seen. Yosvany Alfaro MD Aorta w/Runoff CTA 12/27/16 0000 Signed Impressions: Service Date/Time: Wednesday, December 28, 2016 17:28 - CONCLUSION: Atherosclerotic calcification seen throughout the arterial system without an area of significant stenosis. The trifurcation vessels are only faintly opacified. Yosvany Alfaro MD Modified Barium Swallow 12/23/16 0000 Signed Impressions: Service Date/Time: Friday, December 23, 2016 09:11 - CONCLUSION: Negative for aspiration.. Remington Woodward MD FACR Chest X-Ray 12/04/16 [id number] Signed Impressions: Service Date/Time: Sunday, December 04, 2016 18:55 - CONCLUSION: 1. Placement of left central line tip in superior vena cava. No pneumothorax. Mild basilar airspace disease. Small right effusion. Gurwinder Root MD Upper Extremity Ultrasound 12/04/16 Signed Impressions: Service Date/Time: Sunday, December 04, 2016 15:37 - CONCLUSION: 1. Positive for occlusive deep venous thrombosis in the right axillary and subclavian vein. Occlusive superficial thrombus in bilateral cephalic veins. Gurwinder Root MD Angiography 12/01/16 Signed Impressions: Service Date/Time: November 14:02 - CONCLUSION: 1. Right side up on her hemorrhage with angiography of the right bronchial artery revealing no source of active hemorrhage. Empiric embolization was performed. Santos Crockett Jr., MD Chest CT 11/28/16 Signed Impressions: Service Date/Time: Tuesday, November 29, 2016 05:13 - CONCLUSION: 1. Patchy alveolar disease characteristic of edema or pneumonia. 2. Severe emphysema 3. Gastrojejunostomy tube looped in the stomach Harvey Morejon MD Chest/Thorax CTA 11/26/16 Signed Impressions: Service Date/Time: Saturday, November 26, 2016 20:18 - CONCLUSION: 1. Extensive filling defects within the right central bronchial tree characteristic of endobronchial hemorrhage. 2. Consolidating airspace disease in the right upper lobe and right lower lobe characteristic of hemorrhage and post obstructive lung consolidation. 3. Right bronchial artery is identified extending to the central right bronchial region 4. Advanced COPD. Nasir Amanda MD Abdomen X-Ray 11/19/[id number] Signed Impressions: Service Date/Time: Saturday, November 19, 2016 02:44 - CONCLUSION: Unchanged bowel gas pattern potentially relating to an ileus. Santos Crockett Jr., MD Transcranial Doppler Study Complete [id number]/[id number] Signed Impressions: Service Date/Time: October 07:54 - CONCLUSION: Slight interval elevation of flow velocity measurements and ratio on the left Yosvany Polk MD Liver Ultrasound 10/19/16 Signed Impressions: Service Date/Time: Wednesday, October 19, 2016 11:20 - CONCLUSION: 1. Sludge filled gallbladder with thickened wall. 2. Moderate size bilateral pleural effusions and mild upper abdominal ascites. Santos Vazquez MD Cerebral Arteriogram 9/6/17 0000 Signed Impressions: Service Date/Time: Wednesday, October 19, 2016 12:47 - CONCLUSION: Uncomplicated cerebral arteriography with spasmolytic therapy as described in detail above. Yosvany Polk MD Head CT 10/17/16 0000 Signed Impressions: Service Date/Time: Monday, October 17, 2016 15:06 - CONCLUSION: Ventricles are slightly larger without ventriculostomy. Edema in the left hemisphere the brain herniating through the operative site. Remington Woodward MD FACR Infusion Non-thrombolysis 10/14/16 1103 Signed Impressions: Service Date/Time: Friday, October 14, 2016 10:21 - CONCLUSION: 1. Uncomplicated infusion for spasmolysis Harvey Morejon MD Neck CTA 10/07/16 0000 Signed Impressions: Service Date/Time: Friday, October 07, 2016 15:03 - CONCLUSION: 1. Mild carotid bulb atherosclerotic calcification bilaterally. However, no significant stenosis is present in either internal carotid artery. 2. Paranasal sinus mucoperiosteal thickening. 3. Please refer to brain CTA report for description of the intracranial findings. Yosvany Ramirez MD Head CTA 10/07/16 0000 Signed Impressions: Service Date/Time: Friday, October 07, 2016 15:03 - CONCLUSION: 1. 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 2. Large left subdural hematoma measuring 1.3 cm in depth with a significant, 1.6 cm left to right subfalcine shift. Joni Shelton MD Objective Remarks GENERAL: This is a well-nourished, well-developed patient, in no apparent distress. CARDIOVASCULAR: Regular rate and regular rhythm without murmurs, gallops, or rubs. RESPIRATORY: Clear to auscultation. Breath sounds equal bilaterally. No wheezes , rales, or rhonchi. GASTROINTESTINAL: Abdomen soft, non-tender, nondistended. Normal, active bowel sounds MUSCULOSKELETAL: Extremities without clubbing, cyanosis, or edema. NEURO: awake and alert. Procedures 10/13 Four-vessel cerebral angiography with verapamil treatment of vasospasm Status post left frontotemporal parietal craniectomy 10/08 for evacuation subdural hematoma/duraplasty. 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 parietal cranioplasty with replacement of skull flap by Dr Perry neurosurgery on 12/27/16 Medications and IVs Inpatient Medications Acetaminophen (Tylenol) 650 mg Q4H PRN PO TEMPERATURE > 101.5 F; Start at 11:30 Acetaminophen/ Hydrocodone Bitart (Flomaton 10-325 Mg) 2 tab Q4H PRN PO PAIN 6-10 WHEN TOLERATING PO Last administered on 12/30/16 14:24; Start 12/27/16 at 11: 30 Acetazolamide Sodium (Diamox Inj) 500 mg DAILY IV PUSH Last administered on 08:15; Start 10/25/16 at 09:00; Stop 10/28/16 at 03:25; Status DC Acetylcysteine (Mucomyst 20% Neb) 2 ml Q6HR NEB NEB Last administered on 04:24; Start 11/16/16 at 10:00; Stop 11/20/16 at 09:59; Status DC Albumin Human (Albumin 5% Inj) 25 gm ONCE ONCE IV Last administered on 11:34; Start 10/14/16 at 11:15; Stop 10/14/16 at 11:17; Status DC Albuterol Sulfate (Albuterol Neb) 2.5 mg Q2HR NEB PRN INH SOB/WHEEZING Last administered on 11/22/16 22:09; Start 10/19/16 at 09:45 Albuterol/ Ipratropium (Duoneb Neb) 1 ampule Q6HR NEB NEB Last administered on 12/08/16 01:13; Start 12/04/16 at 10:00; Stop 12/08/16 at 09:59; Status DC Artificial Tears (Tears Naturale Opth Soln) 1 drop TID EACH EYE Last administered on 01/23/17 09:49; Start 10/19/16 at 13:00 Ascorbic Acid (Vitamin C) 500 mg BID PO Last administered on 01/23/17 09:49; Start 12/22/16 at 09:00 Azithromycin 500 mg/Sodium Chloride 250 ml @ 250 mls/hr Q24H IV Last administered on 10/18/16 03:34; Start 10/15/16 at 04:00; Stop 10/18/16 at 07:20; Status DC Aztreonam 1000 mg/ Sodium Chloride 100 ml @ 200 mls/hr Q8H IV Last administered on 11/08/16 08:00; Start 11/06/16 at 16:00; Stop 11/08/16 at 12:55 ; Status DC Bacitracin (Baciguent Oint) 1 applic Q12HR TOPICAL Last administered on 23:13; Start 11/18/16 at 11:00 Bacitracin (Bacitracin Oint Packet) 0.9 gm DAILY TOPICAL Last administered on 01/23/17 09:00; Start 12/30/16 at 18:31 Bisacodyl (Dulcolax Supp) 10 mg DAILY PRN RECTAL CONSTIPATION; Start 12/27/16 at 11:30 Calcium Chloride 1 gm/Sodium Chloride 110 ml @ 110 mls/hr ONCE ONCE IV Last administered on 10/15/16 03:52; Start 10/15/16 at 03:15; Stop 10/15/16 at 04:14; Status DC Calcium Gluconate (Calcium Gluconate Inj) 1 gm UNSCH PRN IV SEE LABEL COMMENTS ; Start 12/27/16 at 11:30; Stop 12/27/16 at 11:31; Status DC Calcium Gluconate 1 gm/Sodium Chloride 110 ml @ 110 mls/hr UNSCH PRN IV SEE LABEL COMMENT; Start 12/27/16 at 12:00; Stop 01/10/17 at 16:51; Status DC Calcium Gluconate 2 gm/Sodium Chloride 120 ml @ 120 mls/hr ONCE ONCE IV Last administered on 10/15/16 09:26; Start 10/15/16 at 09:00; Stop 10/15/16 at 09:59; Status DC Calcium Gluconate 3 gm/Sodium Chloride 130 ml @ 120 mls/hr ONCE ONCE IV Last administered on 10/16/16 09:48; Start 10/16/16 at 10:00; Stop 10/16/16 at 11:04; Status DC Cefazolin Sodium 1000 mg/Sodium Chloride 100 ml @ 200 mls/hr NOW ONCE IV ; Start 11/12/16 at 15:30; Stop 11/12/16 at 15:59; Status DC Cefazolin Sodium/ Dextrose 50 ml @ 100 mls/hr Q8H IV Last administered on 08:00; Start 12/27/16 at 16:00; Stop 12/28/16 at 08:29; Status DC Cefepime HCl 2000 mg/Sodium Chloride 100 ml @ 200 mls/hr Q8H IV Last administered on 11/06/16 08:42; Start 11/02/16 at 17:00; Stop 11/06/16 at 15:48 ; Status DC Chlorhexidine Gluconate (Chlorhexidine 2% Cloth) 3 pack APPLIED RESEARCHER PRN TOPICAL SEE LABEL COMMENTS; Start 12/26/16 at 15:00; Stop 12/29/16 at 14:59; Status DC Chlorhexidine Gluconate (Hibiclens 4% Top Soln) 1 applic HS TOP Last administered on 12/26/16 21:00; Start 12/22/16 at 21:00; Stop 12/26/16 at 21: 01; Status DC Chlorhexidine Gluconate (Peridex 0.12% Liq) 15 ml BID@08,20 MT Last administered on 01/20/17 08:00; Start 11/26/16 at 20:00 Cisatracurium Besylate (Nimbex Inj) 11 mg ONCE ONCE IV PUSH Last administered on 11/26/16 19:30; Start 11/26/16 at 18:45; Stop 11/26/16 at 18:50; Status DC Cisatracurium Besylate 100 mg/ Sodium Chloride 250 ml @ 8.34 mls/hr TITRATE PRN IV TOF 1/4 Last administered on 11/28/16 11:11; Start 11/28/16 at 11:00; Stop 11/28/16 at 14:11; Status DC Clonidine (Catapres) 0.1 mg Q8H PO Last administered on 01/10/17 01:22; Start 12/04/16 at 10:00; Stop 01/10/17 at 16:51; Status DC Collagenase (Santyl Oint) 1 applic DAILY TOPICAL Last administered on 09:03; Start 11/30/16 at 12:00; Stop 01/17/17 at 08:46; Status DC Dextrose (D50w (Vial) Inj) 50 ml UNSCH PRN IV PUSH HYPOGLYCEMIA-SEE COMMENTS; Start 11/30/16 at 12:15; Stop 12/02/16 at 19:38; Status DC Diltiazem HCl (Cardizem) 90 mg Q6HR PO Last administered on 01/23/17 06:19; Start 11/02/16 at 12:00 Diltiazem HCl 125 mg/Sodium Chloride 125 ml @ 5 mls/hr TITRATE PRN IV Tachycardia Last administered on 10/27/16 08:13; Start 10/22/16 at 10:30; Stop 10/28/16 at 18:49; Status DC Docusate Sodium (Colace Liq) 100 mg Q12HR PO Last administered on 10/30/16 07: 55; Start 10/19/16 at 21:00; Stop 10/31/16 at 10:47; Status DC Docusate Sodium (Colace) 100 mg BID PO Last administered on 01/23/17 09:49; Start 12/27/16 at 21:00 Enalaprilat (Vasotec Inj) 1.25 mg Q6H PRN IV PUSH SBP>160, DBP>90; Start 12/04 at 09:15 Epinephrine HCl 2 mg/Dextrose 252 ml @ 22.68 mls/ hr TITRATE PRN IV Blood Pressure Management; Start 10/15/16 at 15:00; Stop 10/15/16 at 15:32; Status DC Epinephrine HCl 8 mg/Dextrose 250 ml @ 5.62 mls/hr TITRATE PRN IV Blood Pressure Management Last administered on 10/20/16 15:14; Start 10/17/16 at 11:15 ; Stop 10/29/16 at 11:49; Status DC Epoprostenol Sodium 75 ml/ Sodium Chloride 100 ml @ 8 mls/hr Q8H NEB Last administered on 10/21/16 15:25; Start 10/15/16 at 03:00; Stop 10/21/16 at 16:05; Status DC Famotidine (Pepcid) 20 mg BID PO Last administered on 01/23/17 09:49; Start 12/16/16 at 21:00 Fat Emulsion Intravenous 250 ml @ 10 mls/hr Q24H IV-CENTRAL Last administered on 10/29/16 19:58; Start 10/20/16 at 20:00; Stop 10/31/16 at 10:47; Status DC Fentanyl Citrate 250 ml @ 5 mls/hr TITRATE PRN IV SEDATION Last administered on 11/29/16 06:30; Start 11/26/16 at 18:45; Stop 12/12/16 at 16:47; Status DC Fentanyl Citrate (fentaNYL INJ) 100 mcg Q1H PRN IV PUSH any pain; Start at 18:45; Stop 11/29/16 at 14:38; Status DC Ferrous Sulfate (Ferrous Sulfate) 325 mg BID@12,17 PO Last administered on 16:30; Start 12/22/16 at 12:00 Fluconazole (Diflucan) 100 mg DAILY PO Last administered on 11/16/16 09:23; Start 11/06/16 at 16:00; Stop 11/16/16 at 13:20; Status DC Fludrocortisone Acetate (Florinef) 0.2 mg BID PO Last administered on 10/16/16 08:12; Start 10/15/16 at 21:00; Stop 10/16/16 at 09:12; Status DC Fosphenytoin Sodium (Cerebyx Inj) 100 mgpe Q8HR IV Last administered on 06:28; Start 10/15/16 at 10:00; Stop 10/25/16 at 14:25; Status DC Fosphenytoin Sodium 1000 mgpe/ Sodium Chloride 70 ml @ 280 mls/hr ONCE ONCE IV Last administered on 10/15/16 03:32; Start 10/15/16 at 02:30; Stop 10/15/16 at 02:44; Status DC Furosemide (Lasix Liq) 20 mg DAILY NG Last administered on 12/01/16 08:38; Start 11/09/16 at 10:30; Stop 12/02/16 at 09:49; Status DC Furosemide (Lasix Inj) 40 mg DAILY IV PUSH Last administered on 11/09/16 09:11 ; Start 10/28/16 at 09:00; Stop 11/09/16 at 10:18; Status DC Furosemide 100 mg/ Sodium Chloride 100 ml @ 5 mls/hr CONTINUOUS IV Last administered on 10/27/16 08:12; Start 10/24/16 at 12:00; Stop 10/27/16 at 08:59 ; Status DC Glucagon (Glucagon Inj) 1 mg UNSCH PRN OTHER HYPOGLYCEMIA-SEE COMMENTS; Start 11/30/16 at 12:15; Stop 12/02/16 at 19:38; Status DC Haloperidol Lactate (Haldol Inj) 5 mg Q4H PRN IV PUSH agitation; Start at 15:00; Stop 11/29/16 at 14:45; Status DC Heparin Sodium (Porcine) (Heparin Inj) 5,000 units Q8HR SQ Last administered on 11/13/16 21:20; Start 10/14/16 at 22:00; Status Future Hold Hydralazine HCl (Apresoline Inj) 10 mg Q1H PRN IV PUSH SBP>160, DBP>90 Last administered on 12/04/16 12:39; Start 12/04/16 at 09:15; Stop 12/16/16 at 15: 01; Status DC Hydrocortisone Sodium Succinate (SoluCORTEF INJ) 25 mg Q12H IV PUSH Last administered on 10/27/16 04:14; Start 10/25/16 at 16:00; Stop 10/27/16 at 08:59 ; Status DC Hydromorphone HCl (Dilaudid Pf Inj) 0.5 mg Q4H PRN IV PUSH pain 7-10 or not taking po; Start 11/29/16 at 12:30; Stop 11/29/16 at 14:38; Status DC Insulin Aspart (NovoLOG SUPPLEMENTAL SCALE) 1 Q12H SQ Last administered on 11/04 00:42; Start 11/03/16 at 12:00; Stop 11/12/16 at 08:40; Status DC Insulin Detemir (Levemir Inj) 8 units Q12HR SQ Last administered on 10/29/16 08:28; Start 10/28/16 at 21:00; Stop 11/01/16 at 14:52; Status DC Insulin Human Regular (NovoLIN R SUPPLEMENTAL SCALE) 1 Q6HR SQ ; Start at 12:00; Stop 12/02/16 at 19:38; Status DC Insulin Human Regular (NovoLIN R INJ) See Protocol Table ... APPLIED RESEARCHER PRN SQ SEE PROTOCOL TABLE; Start 12/26/16 at 15:00; Stop 12/29/16 at 14:59; Status DC Isoproterenol HCl 2 mg/Dextrose 260 ml @ 23.4 mls/hr TITRATE PRN IV Hypotension Last administered on 10/14/16 21:26; Start 10/14/16 at 21:00; Stop at 16:24; Status DC IV Flush (NS Flush) 2 ml BID IVF Last administered on 01/13/17 08:44; Start 12/27/16 at 21:00; Stop 01/13/17 at 12:47; Status DC Labetalol HCl (Trandate Inj) 10 mg Q1H PRN IV PUSH SBP>160, DBP>90, HR>65; Start 12/04/16 at 09:15; Stop 12/16/16 at 15:01; Status DC Lactated Ringer's 1,000 ml @ 30 mls/hr Q24H PRN IV SEE LABEL COMMENTS; Start 12/26/16 at 15:00; Stop 12/27/16 at 11:25; Status DC Lactobacillus Acidophilus (Lactinex) 1 tab TID PO Last administered on 09:49; Start 12/14/16 at 18:00 Lactulose (Lactulose Liq) 30 ml QID OG-TUBE Last administered on 11/11/16 12: 28; Start 11/01/16 at 09:00; Stop 11/12/16 at 08:36; Status DC Lansoprazole (Prevacid Odt) 30 mg ONCE ONCE NG Last administered on 10/19/16 12:11; Start 10/19/16 at 12:00; Stop 10/19/16 at 12:02; Status DC Levetriacetam (Keppra Liq) 500 mg Q12HR PEG Last administered on 01/13/17 08: 44; Start 12/27/16 at 21:00; Stop 01/13/17 at 12:47; Status DC Levetriacetam 500 mg/Sodium Chloride 105 ml @ 400 mls/hr Q12H IV Last administered on 10/31/16 05:11; Start 10/08/16 at 06:00; Stop 10/31/16 at 10:47 ; Status DC Levofloxacin (Levaquin) 750 mg DAILY PO Last administered on 11/25/16 09:19; Start 11/18/16 at 12:00; Stop 11/25/16 at 11:59; Status DC Loperamide HCl (Imodium Liq) 2 mg UNSCH PRN PO DIARRHEA; Start 12/14/16 at 10: 45 Lorazepam (Ativan Inj) 2 mg ONCE ONCE IV PUSH Last administered on 10/15/16 03 :33; Start 10/15/16 at 02:30; Stop 10/15/16 at 02:37; Status DC Magnesium Oxide (Mag-Ox) 800 mg UNSCH PRN PO For Magnesium 1.2 - 1.6 mg/dL; Start 10/16/16 at 09:15; Stop 11/25/16 at 09:51; Status DC Magnesium Sulfate 2 gm/Sodium Chloride 100 ml @ 50 mls/hr UNSCH PRN IV For Magnesium 1.2 - 1.6 mg/dL; Start 10/16/16 at 09:15; Stop 11/25/16 at 09:51; Status DC Magnesium Sulfate 4 gm/Sodium Chloride 108 ml @ 108 mls/hr UNSCH PRN IV MAGNESIUM LESS THAN 2; Start 12/27/16 at 11:30; Stop 01/10/17 at 16:51; Status DC Magnesium Sulfate/ Dextrose 100 ml @ 100 mls/hr ONCE ONCE IV Last administered on 12/02/16 11:11; Start 12/02/16 at 10:00; Stop 12/02/16 at 10 :59; Status DC Mannitol (Mannitol Inj) 50 gm ONCE ONCE IV Last administered on 10/13/16 21: 00; Start 10/07/16 at 15:30; Stop 10/07/16 at 15:31; Status DC Melatonin (Melatonin) 5 mg HS PO Last administered on 01/22/17 23:12; Start 11/01/16 at 21:00 Methylnaltrexone Milo (Relistor Inj) 12 mg ONCE ONCE SQ Last administered on 10/20/16 14:17; Start 10/20/16 at 09:15; Stop 10/20/16 at 09:39; Status DC Metoclopramide HCl (Reglan Inj) 5 mg Q8H IV PUSH Last administered on 02:28; Start 12/02/16 at 18:00; Stop 12/12/16 at 16:47; Status DC Metoprolol Tartrate (Lopressor) 25 mg APPLIED RESEARCHER PRN PO SEE LABEL COMMENTS; Start 12/26/16 at 15:00; Stop 12/29/16 at 14:59; Status DC Metronidazole 100 ml @ 100 mls/hr Q6H IV Last administered on 11/04/16 09:26 ; Start 11/02/16 at 16:00; Stop 11/04/16 at 11:21; Status DC Midazolam HCl (Versed Inj) 2 mg Q15M PRN IV PUSH SEDATION; Start 11/27/16 at 01:45; Stop 11/29/16 at 14:45; Status DC Milrinone Lactate 20 mg/Sodium Chloride 100 ml @ 9.79 mls/hr [id number] IV Last administered on 10/30/16 03:35; Start 10/22/16 at 10:23; Stop 11/01/16 at 07:51 ; Status DC Mineral Oil (Mineral Oil Liq) 30 ml ONCE ONCE PO Last administered on 15:32; Start 10/20/16 at 14:00; Stop 10/20/16 at 14:01; Status DC Miscellaneous Information ALL NURSING DEPARTME... UNSCH PRN .XX SEE LABEL COMMENTS; Start 12/27/16 at 11:45; Stop 12/28/16 at 11:44; Status DC Morphine Sulfate (Morphine Inj) 4 mg Q2H PRN IV PUSH PAIN SCALE 7 TO 10 Last administered on 12/28/16 18:00; Start 12/27/16 at 11:30; Stop 01/13/17 at 12: 43; Status DC Multivitamins 10 ml/Folic Acid 1 mg/Amino Acids/ Electrolytes/ Dextrose 2,010.2 ml @ 30 mls/hr Q24H IV-CENTRAL Last administered on 10/28/16 20:01; Start 10/20/16 at 20:00; Stop 10/31/16 at 10:47; Status DC Nicardipine HCl 25 mg/Sodium Chloride 260 ml @ 52 mls/hr Q5H PRN IV Blood pressure management; Start 10/07/16 at 15:40; Stop 10/14/16 at 21:02; Status DC Nimodipine (Nimotop) 60 mg Q4HR PO Last administered on 11/02/16 20:23; Start 10/13/16 at 00:00; Stop 11/02/16 at 23:59; Status DC Nitroglycerin (Nitroglycerin 2% Oint) 2 inch Q6H PRN TOPICAL SBP>160, DBP>90; Start 12/04/16 at 09:15 Norepinephrine Bitartrate 16 mg/ Sodium Chloride 250 ml @ 1.87 mls/hr TITRATE PRN IV Blood pressure management Last administered on 10/20/16 01:07; Start 10/17 at 10:15; Stop 10/31/16 at 10:47; Status DC Norepinephrine Bitartrate 4 mg/ Sodium Chloride 250 ml @ 7.5 mls/hr TITRATE PRN IV Blood pressure management; Start 10/15/16 at 15:00; Stop 10/15/16 at 15:56 ; Status DC Ondansetron HCl (Zofran Inj) 4 mg Q6H PRN IV PUSH NAUSEA OR VOMITING; Start at 11:30 Oxycodone HCl (Roxicodone Intensol Liq) 10 mg Q4H PRN PO PAIN SCALE 1 TO 6; Start 11/24/16 at 11:30; Stop 11/29/16 at 14:38; Status DC Pantoprazole Sodium (Protonix Inj) 40 mg DAILY IVP Last administered on 08:44; Start 12/28/16 at 09:00; Stop 01/13/17 at 12:43; Status DC Pantoprazole Sodium (Protonix) 40 mg DAILY PO Last administered on 01/13/17 08 :44; Start 12/28/16 at 09:00; Stop 01/13/17 at 12:47; Status DC Pharmacy Profile Note 0 ml @ 0 mls/hr UNSCH OTHER ; Start 11/02/16 at 15:30; Stop 11/06/16 at 15:48; Status DC Phenylephrine HCl 40 mg/Dextrose 500 ml @ 30 mls/hr TITRATE PRN IV Blood pressure management Last administered on 10/15/16 15:02; Start 10/14/16 at 18:30 ; Stop 10/15/16 at 15:36; Status DC Phenylephrine HCl 160 mg/Dextrose 500 ml @ 7.5 mls/hr TITRATE PRN IV Blood Pressure Management Last administered on 10/23/16 14:21; Start 10/17/16 at 10:15 ; Stop 10/29/16 at 11:49; Status DC Phenytoin (Dilantin Liq) 100 mg Q8HR PO Last administered on 11/06/16 06:34; Start 11/01/16 at 14:00; Stop 11/06/16 at 12:28; Status DC Phenytoin Sodium (Dilantin Inj) 100 mg Q8HR IV Last administered on 11/01/16 05:30; Start 10/25/16 at 22:00; Stop 11/01/16 at 07:52; Status DC Piperacillin Sod/ Tazobactam Sod 100 ml @ 200 mls/hr Q6H IV Last administered on 10/23/16 05:39; Start 10/19/16 at 12:00; Stop 10/23/16 at 09:43; Status DC Polyethylene Glycol (Miralax) 17 gm BID OG-TUBE Last administered on 10/29/16 20:15; Start 10/19/16 at 21:00; Stop 10/31/16 at 10:47; Status DC Potassium Chloride/Sodium Chloride 1,000 ml @ 100 mls/hr Q10H IV Last administered on 01/12/17 10:00; Start 12/27/16 at 11:17; Stop 01/12/17 at 11 :04; Status DC Potassium Phosphate (K-Phos) 2,000 mg UNSCH PRN PO/TUBE SEE LABEL COMMENTS; Start 10/16/16 at 09:15; Stop 11/25/16 at 09:51; Status DC Potassium Phosphate 30 mmol/ Sodium Chloride 260 ml @ 43.333 mls/ hr ONCE ONCE IV ; Start 10/20/16 at 18:00; Stop 10/20/16 at 23:59; Status DC Potassium Bicarb/ Potassium Chloride (K-Lyte Cl Eff) 50 meq NOW ONCE PO Last administered on 11/15/16 10:44; Start 11/15/16 at 08:30; Stop 11/15/16 at 08:31 ; Status DC Potassium Chloride 100 ml @ 50 mls/hr UNSCH PRN IV POTASSIUM LESS THAN 4; Start 12/27/16 at 11:30; Stop 01/10/17 at 16:51; Status DC Potassium Chloride (KCl Powder) 20 meq ONCE ONCE PO ; Start 12/02/16 at 10:00 ; Stop 12/02/16 at 10:02; Status DC Povidone Iodine (Betadine 10% Oint) 1 applic DAILY TOPICAL Last administered on 12/23/16 09:00; Start 11/24/16 at 09:00; Stop 12/24/16 at 12:51; Status DC Povidone Iodine (Betadine 5% Antisepsis Kit) 1 applic APPLIED RESEARCHER PRN EACH NARE SEE LABEL COMMENTS; Start 12/26/16 at 15:00; Stop 12/29/16 at 14:59; Status DC Prednisone (Deltasone) 20 mg BID PO Last administered on 11/09/16 21:08; Start 11/08/16 at 13:00; Stop 11/09/16 at 21:01; Status DC Propofol 100 ml @ 1.668 mls/ hr TITRATE PRN IV SEDATION Last administered on 11/26/16 21:29; Start 11/26/16 at 18:45; Stop 12/12/16 at 16:47; Status DC Protein (Beneprotein Powder) 1 pack TID G-TUBE Last administered on 01/10/17 18:00; Start 11/19/16 at 09:00; Stop 01/13/17 at 12:47; Status DC Racepinephrine (Racepinephrine 2.25% Neb) 0.5 ml Q4HR NEB PRN NEB hemoptysis/ stridor; Start 12/03/16 at 15:00; Stop 01/13/17 at 12:47; Status DC Sennosides (Senna Liq) 8.8 mg BID PO Last administered on 10/29/16 20:15; Start 10/19/16 at 21:00; Stop 10/31/16 at 10:47; Status DC Sodium Chloride 500 ml @ 30 mls/hr [id number] PRN IV SEE LABEL COMMENTS; Start at 15:00; Stop 12/27/16 at 11:25; Status DC Sodium Chloride (NS Flush) UNSCH PRN IV FLUSH SEE PROTOCOL; Start 12/04/16 at 18:00; Stop 01/13/17 at 12:47; Status DC Sodium Chloride (Sodium Chloride) 3 gm TID PO Last administered on 11/04/16 10 :18; Start 10/15/16 at 13:15; Stop 11/04/16 at 11:21; Status DC Sodium Chloride 240 meq/Syringe / Bag 60 ml @ 120 mls/hr ONCE ONCE IV Last administered on 10/16/16 09:48; Start 10/16/16 at 10:00; Stop 10/16/16 at 10:29; Status DC Sodium Phosphate 30 mmol/Sodium Chloride 250 ml @ 42 mls/hr UNSCH PRN IV For Phosphorus < 2.5 mg/dL Last administered on 10/22/16 06:46; Start 10/16/16 at 09: 15; Stop 11/25/16 at 09:51; Status DC Terbutaline Sulfate (Brethine Inj) 1 mg UNSCH PRN SQ FOR EXTRAVASATION PROTOCOL ; Start 10/15/16 at 15:45; Stop 11/01/16 at 07:51; Status DC Vancomycin HCl 1000 mg/Sodium Chloride 250 ml @ 250 mls/hr ONCE ONCE IV Last administered on 10/15/16 07:02; Start 10/15/16 at 05:00; Stop 10/15/16 at 05:59; Status DC Vancomycin HCl 1250 mg/Sodium Chloride 262.5 ml @ 250 mls/hr Q12H IV Last administered on 11/06/16 06:34; Start 11/05/16 at 18:00; Stop 11/06/16 at 15:48 ; Status DC Vancomycin HCl 1500 mg/Sodium Chloride 515 ml @ 257.5 mls/ hr Q12H IV Last administered on 10/23/16 08:32; Start 10/23/16 at 09:00; Stop 10/23/16 at 09:43 ; Status DC Vasopressin 40 units/Dextrose 100 ml @ 4.5 mls/hr [id number] IV Last administered on 10/25/16 02:30; Start 10/14/16 at 11:30; Stop 10/31/16 at 10:47 ; Status DC Water (Free Water) VOLUME OF WATER: 200 ML Q6HR G-TUBE Last administered on 18:00; Start 11/22/16 at 00:00; Stop 11/26/16 at 18:43; Status DC Date of Insertion: Dec 04, 2016 Line: Central Venous Catheter Side: Left Location: Internal, Jugular A/P Problem List: (1) Subarachnoid hemorrhage due to ruptured aneurysm ICD Code: I60.8 - Other nontraumatic subarachnoid hemorrhage (2) Subdural hematoma ICD Code: I62.00 - Nontraumatic subdural hemorrhage, unspecified (3) Intracranial aneurysm ICD Code: I67.1 - Cerebral aneurysm, nonruptured (4) Respiratory failure ICD Code: J96.90 - Respiratory failure, unspecified, unspecified whether with hypoxia or hypercapnia Status: Acute Assessment and Plan 1. Subdural Hematoma/duraplasty status post left frontotemporal parietal craniotomy 10/08. 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 Initiated . - 10/13 and 10/14 and 10/17) 10/19 left MCA territory vasospasm, status post successful verapamil treatment by IR with 20 mg verapamil - 10/17 CT brain - less hemisphere edema with herniation through left craniotomy site, improved. - Dr. Perry/neurosurgery. S/p left cranioplasty/bone flap 12/27/16. - Echocardiogram 10/14/16 revealed EF 40-45%. Septal hypokinesis. Moderate MR. Severe pulmonary hypertension with pulmonary artery pressures estimated 61 mmHg Limited Echo 11/06: LVEF 60-65%, Trivial mitral and tricuspid regurgitation, No vegetations noted. - On diltiazem's 90 mg by mouth every 6 hours and furosemide 20 mg daily. Monitor BP and if low hold meds. - neurologically stable and doing well, and continued PT and rehabilitation. - PT, OT, speech following. Patient had helmet. Respiratory failure, S/P tracheostomy. Resolved now satting well on Room air. Monitor O2 sat, O2 supplement to keep O2 sat > 94 - S/p Trach Dr. Sullivan/Dr. Collazo 11/01 #8 [place] - CT angiogram chest/neck revealed right centrilobular bleeding likely source right bronchial artery. Repeat CT chest 11/29no visualization of active bleeding.- Resolved - 12/01 - embolization of right bronchial artery by IR- no further bleeding from tracheostomy - Redo trach 11/[address] Sullivan[address]now trach has been removed. - continue neb treatment. - trach removed Lower extremity edema improved. Ultrasound Doppler reviewed and no DVT. Patient with high risk of bleeding and is not chemoprophylaxis at this time. Continue SCDs and teds for DVT prophylaxis. Ileus- Resolved Elevated transaminases Hyperammonemia protein caloric malnutrition-calorie count performed- perinatal breastfeeding assistant recommendations noted; - tube feeding on hold- will leave the PEG in place and continue to monitor. -perinatal breastfeeding assistant following. Right occlusive subclavian, axillary and bilateral superficial cephalic thrombus - limited Echo to evaluate vegetation-neg. 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 Cardizem PO currently and 90 mg every 6 hours (for digital ischemia, Raynaud's) - Continue bacitracin twice a day to affected areas - We'll need to be started on systemic anticoagulation at some point however with recent embolization for hemoptysis holding full anticoagulation at this time. - evaluated by vascular surgery and no interventions recommended at this time. sacral ulcer - ABD dressing with [employer]- staff nurse makes sure to keep area dry. Wound care also consulted. appreciate recommendations. - Turn position every 2 hours - Out of bed to chair activity DVT prophylaxis with SCD, no chemoprophylaxis secondary to risk for bleeding. clinically no change. continue current care. Course of hospitalization complications Acute hypoxic Respiratory failure secondary to mucous plugging- Resolved Possible healthcare associated pneumonia, Septic Shock- resolved. ARDS - resolved Noncardiogenic/neurogenic pulmonary edema- resolved. Massive Hemoptysis - resolved Aspiration pneumonitis - resolved Cerebral Salt Wasting/SIADH-resolved now hypernatremic - Creatinine currently within normal limits -> resolved. - Monitor urine output Septic and cardiogenic shock- resolved. LV dysfunction secondary to SAH - persistent, now resolved Elevated troponin- secondary to SAH, unlikely to be ACS. - resolved. Pulmonary hypertension s/p PEA arrest 11/28 after ETT dislodgement, hypoxic arrest Problem Qualifiers (1) Respiratory failure: Qualified Codes: J96.00 - Acute respiratory failure, unspecified whether with hypoxia or hypercapnia Kristina Juárez MD Jan 23, 2017 10:59
[2017-01-23] MEDS: FERROUS SULFATE 325 MG (65 MG ELEMENTAL IRON) TAB PO SCH ×2 (12:51→17:50)
[2017-01-23] MEDS: MELATONIN 5 MG TAB PO SCH (23:44)
[2017-01-24 04:00] VITALS: BP 122/74; PULSE 67; RESP 18; TEMP 98.3; O2SAT 97
[2017-01-24] MEDS: DILTIAZEM HCL 90 MG TAB PO SCH ×3 (07:04→17:56)
[2017-01-24 08:00] VITALS: BP 117/68; PULSE 72; RESP 18; TEMP 98; O2SAT 98
[2017-01-24] MEDS: CHLORHEXIDINE 0.12% (ORAL KIT) 15 ML CUP MT SCH ×2 (08:00→21:39)
[2017-01-24] MEDS: LACTOBACILLUS ACIDOPHILUS TAB PO SCH ×3 (09:00→17:56)
[2017-01-24] MEDS: FAMOTIDINE 20 MG TAB PO SCH ×2 (09:00→21:39)
[2017-01-24] MEDS: BACITRACIN TOP OINT 15 GM TUBE TOPICAL SCH ×2 (09:00→21:40)
[2017-01-24] MEDS: BACITRACIN OINT 0.9 GM PKT TOPICAL SCH (09:00)
[2017-01-24] MEDS: ASCORBIC ACID 500 MG TAB PO SCH ×2 (09:00→21:39)
[2017-01-24] MEDS: DOCUSATE SODIUM 100 MG CAP PO SCH ×2 (09:00→21:39)
[2017-01-24] MEDS: ARTIFICIAL TEARS OPTH SOLN 15 ML BTL EACH EYE SCH ×3 (09:00→18:00)
--- NOTE | 2017-01-24 11:00 | HHI.PR ---
Subjective Remarks in no acute distress. clinically the same. no new complaints. Objective Vitals Vital Signs Date Time Temp Pulse Resp B/P (MAP) Pulse Ox O2 Delivery O2 Flow Rate FiO2 01/24/17 08:00 98.0 72 18 117/68 (84) 98 01/24/17 04:00 98.3 67 18 122/74 (90) 97 01/23/17 23:53 98.1 75 16 110/77 (88) 99 01/23/17 20:00 97.9 81 18 124/76 (92) 97 01/23/17 16:00 97.9 73 18 124/70 (88) 98 01/23/17 12:00 97.9 87 18 122/73 (89) 100 I/O 01/23/17 01/23/17 01/23/17 01/24/17 01/24/17 01/24/17 07:00 15:00 23:00 07:00 15:00 23:00 Output Total 1100 ml 600 ml Balance -1100 ml -600 ml Output Urine Total 1100 ml 600 ml Imaging Last Impressions Lower Extremity Ultrasound 12/29/16 0000 Signed Impressions: Service Date/Time: December 13:07 - CONCLUSION: No sonographic or Doppler findings of deep venous thrombosis. Joni Shelton MD Carotid Artery Ultrasound 12/27/16 0000 Signed Impressions: Service Date/Time: Tuesday, December 27, 2016 17:19 - CONCLUSION: Mild plaque at the carotid bulb regions bilaterally without a significant stenosis seen. Yosvany Alfaro MD Aorta w/Runoff CTA 12/27/16 0000 Signed Impressions: Service Date/Time: Wednesday, December 28, 2016 17:28 - CONCLUSION: Atherosclerotic calcification seen throughout the arterial system without an area of significant stenosis. The trifurcation vessels are only faintly opacified. Yosvany Alfaro MD Modified Barium Swallow 12/23/16 0000 Signed Impressions: Service Date/Time: Friday, December 23, 2016 09:11 - CONCLUSION: Negative for aspiration.. Remington Woodward MD FACR Chest X-Ray 12/04/16 [id number] Signed Impressions: Service Date/Time: Sunday, December 04, 2016 18:55 - CONCLUSION: 1. Placement of left central line tip in superior vena cava. No pneumothorax. Mild basilar airspace disease. Small right effusion. Gurwinder Root MD Upper Extremity Ultrasound 12/04/16 Signed Impressions: Service Date/Time: Sunday, December 04, 2016 15:37 - CONCLUSION: 1. Positive for occlusive deep venous thrombosis in the right axillary and subclavian vein. Occlusive superficial thrombus in bilateral cephalic veins. Gurwinder Root MD Angiography 12/01/16 Signed Impressions: Service Date/Time: November 14:02 - CONCLUSION: 1. Right side up on her hemorrhage with angiography of the right bronchial artery revealing no source of active hemorrhage. Empiric embolization was performed. Santos Crockett Jr., MD Chest CT 11/28/16 Signed Impressions: Service Date/Time: Tuesday, November 29, 2016 05:13 - CONCLUSION: 1. Patchy alveolar disease characteristic of edema or pneumonia. 2. Severe emphysema 3. Gastrojejunostomy tube looped in the stomach Harvey Morejon MD Chest/Thorax CTA 11/26/16 Signed Impressions: Service Date/Time: Saturday, November 26, 2016 20:18 - CONCLUSION: 1. Extensive filling defects within the right central bronchial tree characteristic of endobronchial hemorrhage. 2. Consolidating airspace disease in the right upper lobe and right lower lobe characteristic of hemorrhage and post obstructive lung consolidation. 3. Right bronchial artery is identified extending to the central right bronchial region 4. Advanced COPD. Nasir Amanda MD Abdomen X-Ray 11/19/16599 Signed Impressions: Service Date/Time: Saturday, November 19, 2016 02:44 - CONCLUSION: Unchanged bowel gas pattern potentially relating to an ileus. Santos Crockett Jr., MD Transcranial Doppler Study Complete 10/20/16599 Signed Impressions: Service Date/Time: October 07:54 - CONCLUSION: Slight interval elevation of flow velocity measurements and ratio on the left Yosvany Polk MD Liver Ultrasound 10/19/16 Signed Impressions: Service Date/Time: Wednesday, October 19, 2016 11:20 - CONCLUSION: 1. Sludge filled gallbladder with thickened wall. 2. Moderate size bilateral pleural effusions and mild upper abdominal ascites. Santos Vazquez MD Cerebral Arteriogram 10/19/16 Signed Impressions: Service Date/Time: Wednesday, October 19, 2016 12:47 - CONCLUSION: Uncomplicated cerebral arteriography with spasmolytic therapy as described in detail above. Yosvany Polk MD Head CT 10/17/16 0000 Signed Impressions: Service Date/Time: Monday, October 17, 2016 15:06 - CONCLUSION: Ventricles are slightly larger without ventriculostomy. Edema in the left hemisphere the brain herniating through the operative site. Remington Woodward MD FACR Infusion Non-thrombolysis 10/14/16 1103 Signed Impressions: Service Date/Time: Friday, October 14, 2016 10:21 - CONCLUSION: 1. Uncomplicated infusion for spasmolysis Harvey Morejon MD Neck CTA 10/07/16 0000 Signed Impressions: Service Date/Time: Friday, October 07, 2016 15:03 - CONCLUSION: 1. Mild carotid bulb atherosclerotic calcification bilaterally. However, no significant stenosis is present in either internal carotid artery. 2. Paranasal sinus mucoperiosteal thickening. 3. Please refer to brain CTA report for description of the intracranial findings. Yosvany Ramirez MD Head CTA 10/07/16 0000 Signed Impressions: Service Date/Time: Friday, October 07, 2016 15:03 - CONCLUSION: 1. 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 2. Large left subdural hematoma measuring 1.3 cm in depth with a significant, 1.6 cm left to right subfalcine shift. Joni Shelton MD Objective Remarks GENERAL: This is a well-nourished, well-developed patient, in no apparent distress. CARDIOVASCULAR: Regular rate and regular rhythm without murmurs, gallops, or rubs. RESPIRATORY: Clear to auscultation. Breath sounds equal bilaterally. No wheezes , rales, or rhonchi. GASTROINTESTINAL: Abdomen soft, non-tender, nondistended. Normal, active bowel sounds MUSCULOSKELETAL: Extremities without clubbing, cyanosis, or edema. NEURO: awake and alert. Procedures 10/13 Four-vessel cerebral angiography with verapamil treatment of vasospasm Status post left frontotemporal parietal craniectomy 10/08 for evacuation subdural hematoma/duraplasty. 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 parietal cranioplasty with replacement of skull flap by Dr Perry neurosurgery on 12/27/16 Medications and IVs Current Medications Iohexol (Omnipaque 350 Inj) 100 ml STK-MED ONCE IVCONTRAST Last administered on 10/07/16 14:21; Start 10/07/16 at 14:21; Stop 10/07/16 at 15:21; Status DC Mannitol 50 ml @ As Directed STK-MED ONCE .ROUTE ; Start 10/07/16 at 15:25; Stop 10/07/16 at 15:26; Status DC Propofol 0 ml @ As Directed STK-MED ONCE .ROUTE ; Start 10/07/16 at 15:25; Stop 10/07/16 at 15:26; Status DC Levetriacetam (Keppra Inj) 1,000 mg STK-MED ONCE IV Last administered on 18:30; Start 10/07/16 at 15:27; Stop 10/07/16 at 15:28; Status DC Mannitol (Mannitol Inj) 50 gm ONCE ONCE IV Last administered on 10/13/16 21: 00; Start 10/07/16 at 15:30; Stop 10/07/16 at 15:31; Status DC Nicardipine HCl 25 mg/Sodium Chloride 260 ml @ 52 mls/hr Q5H PRN IV Blood pressure management; Start 10/07/16 at 15:40; Stop 10/14/16 at 21:02; Status DC Propofol 100 ml @ 0 mls/hr Q0M PRN IV Ordered RASS Last administered on 23:01; Start 10/07/16 at 15:40; Stop 10/07/16 at 23:16; Status DC Sodium Chloride 1,000 ml @ 75 mls/hr [id number] IV ; Start 10/07/16 at 16:08; Stop 10/07/16 at 18:34; Status DC Sodium Chloride (NS Flush) 2 ml UNSCH PRN IV FLUSH FLUSH AFTER USING IV ACCESS ; Start 10/07/16 at 16:15; Stop 10/07/16 at 18:40; Status DC Sodium Chloride (NS Flush) 2 ml BID IV FLUSH ; Start 10/07/16 at 21:00; Stop at 21:00; Status DC Acetaminophen (Tylenol) 650 mg Q6H PRN PO PAIN 1-10 AND/OR FEVER >101F; Start 10/07/16 at 16:15; Stop 10/07/16 at 19:04; Status DC Albuterol/ Ipratropium (Duoneb Neb) 1 ampule Q6HR NEB NEB Last administered on 10/11/16 15:16; Start 10/07/16 at 22:00; Stop 10/11/16 at 21:59; Status DC Albuterol/ Ipratropium (Duoneb Neb) 1 ampule Q4HR NEB PRN INH SHORTNESS OF BREATH Last administered on 10/14/16 19:33; Start 10/07/16 at 16:15; Stop at 09:43; Status DC Chlorhexidine Gluconate (Peridex 0.12% Liq) 15 ml BID@08,20 MT Last administered on 11/28/16 08:00; Start 10/07/16 at 20:00; Stop 11/28/16 at 11: 18; Status DC Pantoprazole Sodium (Protonix Inj) 40 mg DAILY IV ; Start 10/08/16 at 09:00; Stop 10/08/16 at 09:00; Status DC Miscellaneous Information 1 [id number] ; Start 10/07/16 at 16:15; Stop 10/19/16 at 12:07; Status DC Chlorhexidine Gluconate (Chlorhexidine 2% Cloth) Taper DAILY@04 TOP Last administered on 10/19/16 03:13; Start 10/08/16 at 04:00; Stop 10/19/16 at 12:07; Status DC Chlorhexidine Gluconate (Chlorhexidine 2% Cloth) 3 pack UNSCH PRN TOP HYGIENIC CARE; Start 10/07/16 at 16:15; Stop 10/19/16 at 12:07; Status DC Insulin Aspart (NovoLOG SUPPLEMENTAL SCALE) 1 Q6HR SQ Last administered on 06:40; Start 10/07/16 at 18:00; Stop 10/20/16 at 09:23; Status DC Propofol 100 ml @ 0 mls/hr Q0M PRN IV SEDATION; Start 10/07/16 at 16:08; Status UNV Nimodipine (Nimotop) 60 mg Q4HR OG-TUBE Last administered on 10/12/16 15:18; Start 10/07/16 at 20:00; Stop 10/12/16 at 23:47; Status DC Verapamil HCl (Isoptin Inj) 10 mg STK-MED ONCE .ROUTE ; Start 10/07/16 at 16:45 ; Stop 10/07/16 at 16:46; Status DC Nitroglycerin (Nitroglycerin 2% Oint) 1 inch STK-MED ONCE .ROUTE ; Start at 16:55; Stop 10/07/16 at 16:56; Status DC Heparin Sodium (Porcine) (Heparin Inj) 10,000 units STK-MED ONCE .ROUTE ; Start 10/07/16 at 16:56; Stop 10/07/16 at 16:57; Status DC Potassium Chloride/Sodium Chloride 1,000 ml @ 100 mls/hr Q10H IV Last administered on 10/14/16 07:08; Start 10/07/16 at 18:20; Stop 10/14/16 at 21:02; Status DC IV Flush (NS Flush) 2 ml UNSCH PRN IVF FLUSH AFTER USING IV ACCESS; Start 10/07 at 18:30; Stop 10/19/16 at 12:09; Status DC IV Flush (NS Flush) 2 ml BID IVF Last administered on 10/19/16 09:00; Start at 21:00; Stop 10/19/16 at 12:09; Status DC Cefazolin Sodium/ Dextrose 50 ml @ 100 mls/hr Q8H IV Last administered on 10/08 10:30; Start 10/07/16 at 19:00; Stop 10/08/16 at 11:29; Status DC Levetriacetam 500 mg/Sodium Chloride 105 ml @ 400 mls/hr Q12H IV Last administered on 10/31/16 05:11; Start 10/08/16 at 06:00; Stop 10/31/16 at 10:47 ; Status DC Bisacodyl (Dulcolax Supp) 10 mg DAILY PRN RECTAL CONSTIPATION; Start 10/07/16 at 18:30; Stop 10/31/16 at 10:47; Status DC Docusate Sodium (Colace) 100 mg BID PO Last administered on 10/19/16 09:00; Start 10/07/16 at 21:00; Stop 10/19/16 at 12:15; Status DC Pantoprazole Sodium (Protonix) 40 mg DAILY PO Last administered on 10/14/16 07: 47; Start 10/08/16 at 09:00; Stop 10/19/16 at 09:46; Status DC Pantoprazole Sodium (Protonix Inj) 40 mg DAILY IVP Last administered on 07:45; Start 10/08/16 at 09:00; Stop 10/12/16 at 14:30; Status DC Ondansetron HCl (Zofran Inj) 4 mg Q6H PRN IV NAUSEA OR VOMITING Last administered on 11/13/16 20:31; Start 10/07/16 at 18:30; Stop 12/08/16 at 13: 55; Status DC Calcium Gluconate (Calcium Gluconate Inj) 1 gm UNSCH PRN IV SEE LABEL COMMENTS Last administered on 10/16/16 10:00; Start 10/07/16 at 18:30; Stop 11/17/16 at 14:34; Status DC Potassium Chloride 100 ml @ 50 mls/hr UNSCH PRN IV POTASSIUM LESS THAN 4 Last administered on 12/02/16 08:13; Start 10/07/16 at 18:30; Stop 12/16/16 at 15: 01; Status DC Magnesium Sulfate 4 gm/Sodium Chloride 108 ml @ 108 mls/hr UNSCH PRN IV MAGNESIUM LESS THAN 2; Start 10/07/16 at 18:30; Stop 12/27/16 at 11:35; Status DC Acetaminophen/ Hydrocodone Bitart ([place] 10-325 Mg) 1 tab Q4H PRN PO PAIN SCALE 1 TO 5 Last administered on 10/13/16 13:07; Start 10/07/16 at 18:30; Stop 10/15/16 at 08:05; Status DC Acetaminophen/ Hydrocodone Bitart ([place]cox 10-325 Mg) 2 tab Q4H PRN PO PAIN SCALE 6 TO 10 Last administered on 10/09/16 10:20; Start 10/07/16 at 18:30; Stop 10/15/16 at 08:05; Status DC Morphine Sulfate (Morphine Inj) 2 mg Q2H PRN IV PUSH PAIN SCALE 1 TO 6 Last administered on 10/10/16 17:52; Start 10/07/16 at 18:30; Stop 10/15/16 at 08:05 ; Status DC Morphine Sulfate (Morphine Inj) 4 mg Q2H PRN IV PUSH PAIN SCALE 7 TO 10 Last administered on 10/08/16 01:55; Start 10/07/16 at 18:30; Stop 10/15/16 at 08:05 ; Status DC Acetaminophen (Tylenol) 650 mg Q4H PRN PO TEMP >100.4 Last administered on 11/14 03:07; Start 10/07/16 at 18:30; Stop 11/30/16 at 13:12; Status DC Iodixanol (VISIPAQUE 320 INJ (Rad Spec)) 65 ml STK-MED ONCE I-ARTERIAL Last administered on 10/07/16 18:38; Start 10/07/16 at 18:38; Stop 10/07/16 at 18:39 ; Status DC Dextrose (D50w (Vial) Inj) 50 ml UNSCH PRN IV PUSH HYPOGLYCEMIA - SEE COMMENTS Last administered on 11/01/16 09:22; Start 10/07/16 at 19:15; Stop 11/12/16 at 08:41; Status DC Glucagon (Glucagon Inj) 1 mg UNSCH PRN OTHER HYPOGLYCEMIA-SEE COMMENTS; Start 10/07/16 at 19:15; Stop 11/12/16 at 08:42; Status DC Midazolam HCl (Versed Inj) 4 mg STK-MED ONCE .ROUTE ; Start 10/07/16 at 19:51; Stop 10/07/16 at 19:52; Status DC Fentanyl Citrate (fentaNYL INJ) 250 mcg STK-MED ONCE .ROUTE ; Start 10/07/16 at 20:32; Stop 10/07/16 at 20:33; Status DC Propofol 100 ml @ 0 mls/hr TITRATE PRN IV Sedation Last administered on 05:31; Start 10/07/16 at 23:15; Stop 11/01/16 at 14:52; Status DC Epinephrine HCl (EPINEPHrine (1:10,000) INJ) 1 mg STK-MED ONCE .ROUTE ; Start at 04:09; Stop 10/09/16 at 04:10; Status DC Atropine Sulfate (Atropine Inj) 1 mg STK-MED ONCE .ROUTE ; Start 10/09/16 at 04: 09; Stop 10/09/16 at 04:10; Status DC Lidocaine HCl (Xylocaine 2% Inj) 100 mg STK-MED ONCE .ROUTE ; Start 10/09/16 at 04:09; Stop 10/09/16 at 04:10; Status DC Nimodipine (Nimotop) 60 mg Q4HR PO Last administered on 11/02/16 20:23; Start 10/13/16 at 00:00; Stop 11/02/16 at 23:59; Status DC Verapamil HCl (Isoptin Inj) 20 mg STK-MED ONCE .ROUTE Last administered on 10/13 17:10; Start 10/13/16 at 17:10; Stop 10/13/16 at 17:11; Status DC Iodixanol (VISIPAQUE 320 INJ (Rad Spec)) 45 ml STK-MED ONCE I-ARTERIAL Last administered on 10/13/16 17:40; Start 10/13/16 at 17:49; Stop 10/13/16 at 17:50 ; Status DC Midazolam HCl (Versed Inj) 2 mg STK-MED ONCE .ROUTE ; Start 10/13/16 at 18:32; Stop 10/13/16 at 18:33; Status DC Fentanyl Citrate (fentaNYL INJ) 200 mcg STK-MED ONCE .ROUTE ; Start 10/13/16 at 18:32; Stop 10/13/16 at 18:33; Status DC Sodium Chloride 2,000 ml @ 0 mls/hr Q0M IV Last administered on 10/14/16 20:20 ; Start 10/13/16 at 21:45; Stop 10/14/16 at 23:59; Status DC Phenylephrine HCl (Neosynephrine Inj) 10 mg STK-MED ONCE .ROUTE Last administered on 10/14/16 09:10; Start 10/14/16 at 09:10; Stop 10/14/16 at 09:11; Status DC Verapamil HCl (Isoptin Inj) 20 mg STK-MED ONCE .ROUTE Last administered on 10:19; Start 10/14/16 at 10:19; Stop 10/14/16 at 10:20; Status DC Fentanyl Citrate (fentaNYL INJ) 100 mcg STK-MED ONCE .ROUTE Last administered on 10/14/16 10:32; Start 10/14/16 at 10:32; Stop 10/14/16 at 10:33; Status DC Midazolam HCl (Versed Inj) 2 mg STK-MED ONCE .ROUTE Last administered on 10:32; Start 10/14/16 at 10:32; Stop 10/14/16 at 10:33; Status DC Midazolam HCl (Versed Inj) 2 mg STK-MED ONCE .ROUTE ; Start 10/14/16 at 10:32; Stop 10/14/16 at 10:33; Status DC Vasopressin 40 units/Dextrose 100 ml @ 4.5 mls/hr [id number] IV Last administered on 10/25/16 02:30; Start 10/14/16 at 11:30; Stop 10/31/16 at 10:47 ; Status DC Albumin Human (Albumin 5% Inj) 25 gm ONCE ONCE IV Last administered on 11:34; Start 10/14/16 at 11:15; Stop 10/14/16 at 11:17; Status DC Iodixanol (VISIPAQUE 320 INJ (Rad Spec)) 10 ml STK-MED ONCE I-ARTERIAL Last administered on 10/14/16 11:06; Start 10/14/16 at 11:06; Stop 10/14/16 at 11:07; Status DC Fludrocortisone Acetate (Florinef) 0.1 mg BID PO Last administered on 10/15/16 11:39; Start 10/14/16 at 11:45; Stop 10/15/16 at 13:17; Status DC Phenylephrine HCl (Neosynephrine Inj) 10 mg STK-MED ONCE .ROUTE Last administered on 10/14/16 12:18; Start 10/14/16 at 12:18; Stop 10/14/16 at 12:19; Status DC Norepinephrine Bitartrate 250 ml @ As Directed STK-MED ONCE IV ; Start 10/14/16 at 13:14; Stop 10/14/16 at 13:15; Status DC Norepinephrine Bitartrate (Levophed Inj) 4 mg STK-MED ONCE .ROUTE Last administered on 10/14/16 13:15; Start 10/14/16 at 13:15; Stop 10/14/16 at 13:16; Status DC Etomidate (Amidate Inj) 20 mg STK-MED ONCE .ROUTE Last administered on 14:18; Start 10/14/16 at 13:44; Stop 10/14/16 at 13:45; Status DC Midazolam HCl (Versed Inj) 5 mg STK-MED ONCE .ROUTE Last administered on 14:18; Start 10/14/16 at 13:44; Stop 10/14/16 at 13:45; Status DC Rocuronium [place] (Zemuron Inj) 50 mg STK-MED ONCE .ROUTE Last administered on 10/14/16 14:17; Start 10/14/16 at 13:45; Stop 10/14/16 at 13:46; Status DC Fentanyl Citrate 250 ml @ 5 mls/hr TITRATE PRN IV SEDATION Last administered on 10/30/16 17:39; Start 10/14/16 at 15:00; Stop 11/01/16 at 14:52; Status DC Phenylephrine HCl (Neosynephrine Inj) 10 mg STK-MED ONCE .ROUTE Last administered on 10/14/16 14:26; Start 10/14/16 at 14:26; Stop 10/14/16 at 14:27; Status DC Norepinephrine Bitartrate 4 mg/ Sodium Chloride 250 ml @ 7.5 mls/hr TITRATE PRN IV Blood pressure management Last administered on 10/15/16 15:05; Start 10/14 at 14:45; Stop 10/15/16 at 14:54; Status DC Terbutaline Sulfate (Brethine Inj) 1 mg UNSCH PRN SQ For Extravasation; Start 10/14/16 at 14:45; Stop 10/19/16 at 12:10; Status DC Rocuronium [place] (Zemuron Inj) 50 mg STK-MED ONCE .ROUTE Last administered on 10/14/16 14:43; Start 10/14/16 at 14:43; Stop 10/14/16 at 14:44; Status DC Midazolam HCl 100 ml @ 2 mls/hr TITRATE PRN IV SEDATION Last administered on 22:54; Start 10/14/16 at 15:00; Stop 10/25/16 at 08:47; Status DC Phenylephrine HCl (Neosynephrine Inj) 10 mg STK-MED ONCE .ROUTE ; Start 10/14/16 at 18:03; Stop 10/14/16 at 18:04; Status DC Phenylephrine HCl 40 mg/Dextrose 500 ml @ 30 mls/hr TITRATE PRN IV Blood pressure management Last administered on 10/15/16 15:02; Start 10/14/16 at 18:30 ; Stop 10/15/16 at 15:36; Status DC Terbutaline Sulfate (Brethine Inj) 1 mg UNSCH PRN SQ For Extravasation; Start 10/14/16 at 18:15; Stop 10/15/16 at 08:05; Status DC Heparin Sodium (Porcine) (Heparin Inj) 5,000 units Q8HR SQ Last administered on 11/13/16 21:20; Start 10/14/16 at 22:00; Status Future Hold Isoproterenol HCl 2 mg/Dextrose 260 ml @ 23.4 mls/hr TITRATE PRN IV Hypotension Last administered on 10/14/16 21:26; Start 10/14/16 at 21:00; Stop at 16:24; Status DC Sodium Chloride 1,000 ml @ 50 mls/hr Q20H IV Last administered on 10/15/16 09: 54; Start 10/14/16 at 21:15; Stop 10/16/16 at 09:17; Status DC Phenylephrine HCl (Neosynephrine Inj) 40 mg STK-MED ONCE .ROUTE ; Start 10/14/16 at 23:30; Stop 10/14/16 at 23:31; Status DC Phenylephrine HCl (Neosynephrine Inj) 10 mg STK-MED ONCE .ROUTE ; Start 10/14/16 at 23:31; Stop 10/14/16 at 23:32; Status DC Epinephrine HCl 2 mg/Dextrose 252 ml @ 22.68 mls/ hr TITRATE PRN IV Blood Pressure Management Last administered on 10/15/16 15:03; Start 10/15/16 at 02:00 ; Stop 10/15/16 at 14:54; Status DC Epinephrine HCl (Adrenalin (1:1000) Inj) 2 mg STK-MED ONCE .ROUTE ; Start at 01:59; Stop 10/15/16 at 02:00; Status DC Lorazepam (Ativan Inj) 2 mg STK-MED ONCE .ROUTE ; Start 10/15/16 at 02:13; Stop 10/15/16 at 02:14; Status DC Epoprostenol Sodium 75 ml/ Sodium Chloride 100 ml @ 8 mls/hr Q8H NEB Last administered on 10/21/16 15:25; Start 10/15/16 at 03:00; Stop 10/21/16 at 16:05; Status DC Lorazepam (Ativan Inj) 2 mg ONCE ONCE IV PUSH Last administered on 10/15/16 03 :33; Start 10/15/16 at 02:30; Stop 10/15/16 at 02:37; Status DC Fosphenytoin Sodium 1000 mgpe/ Sodium Chloride 70 ml @ 280 mls/hr ONCE ONCE IV Last administered on 10/15/16 03:32; Start 10/15/16 at 02:30; Stop 10/15/16 at 02:44; Status DC Fosphenytoin Sodium (Cerebyx Inj) 100 mgpe Q8HR IV Last administered on 06:28; Start 10/15/16 at 10:00; Stop 10/25/16 at 14:25; Status DC Calcium Chloride 1 gm/Sodium Chloride 110 ml @ 110 mls/hr ONCE ONCE IV Last administered on 10/15/16 03:52; Start 10/15/16 at 03:15; Stop 10/15/16 at 04:14; Status DC Pharmacy Profile Note 0 ml @ 0 mls/hr UNSCH OTHER ; Start 10/15/16 at 03:30; Stop 10/18/16 at 07:20; Status DC Cefepime HCl 2000 mg/Sodium Chloride 100 ml @ 200 mls/hr Q8H IV Last administered on 10/18/16 03:34; Start 10/15/16 at 04:00; Stop 10/18/16 at 07:20; Status DC Azithromycin 500 mg/Sodium Chloride 250 ml @ 250 mls/hr Q24H IV Last administered on 10/18/16 03:34; Start 10/15/16 at 04:00; Stop 10/18/16 at 07:20; Status DC Albuterol/ Ipratropium (Duoneb Neb) 1 ampule Q4HR WHILE AWAKE NEB NEB Last administered on 10/18/16 20:21; Start 10/15/16 at 08:00; Stop 10/19/16 at 07:59; Status DC Vancomycin HCl 1000 mg/Sodium Chloride 250 ml @ 250 mls/hr ONCE ONCE IV Last administered on 10/15/16 07:02; Start 10/15/16 at 05:00; Stop 10/15/16 at 05:59; Status DC Hydrocortisone Sodium Succinate (SoluCORTEF INJ) 100 mg Q8H IV PUSH Last administered on 10/22/16 04:34; Start 10/15/16 at 04:00; Stop 10/22/16 at 10:29; Status DC Phenylephrine HCl (Neosynephrine Inj) 20 mg STK-MED ONCE .ROUTE ; Start 10/15/16 at 04:35; Stop 10/15/16 at 04:36; Status DC Sodium Chloride 500 ml @ 30 mls/hr CONTINUOUS IV Last administered on 11:43; Start 10/15/16 at 08:00; Stop 10/22/16 at 10:29; Status DC Calcium Gluconate 2 gm/Sodium Chloride 120 ml @ 120 mls/hr ONCE ONCE IV Last administered on 10/15/16 09:26; Start 10/15/16 at 09:00; Stop 10/15/16 at 09:59; Status DC Albumin Human (Albumin 5% Inj) 12.5 gm STK-MED ONCE IV Last administered on 10/15 09:17; Start 10/15/16 at 09:17; Stop 10/15/16 at 09:18; Status DC Rocuronium [place] (Zemuron Inj) 50 mg STK-MED ONCE .ROUTE Last administered on 10/15/16 09:50; Start 10/15/16 at 09:50; Stop 10/15/16 at 09:51; Status DC Vancomycin HCl 1250 mg/Sodium Chloride 262.5 ml @ 262.5 mls/ hr Q12H IV Last administered on 10/17/16 05:57; Start 10/15/16 at 18:00; Stop 10/17/16 at 09:41; Status DC Miscellaneous Information SPECIFIC LAB TO BE LI... ONCE ONCE .XX Last administered on 10/17/16 05:45; Start 10/17/16 at 05:45; Stop 10/17/16 at 05:46; Status DC Cisatracurium Besylate 100 mg/ Sodium Chloride 260 ml @ 11.24 mls/ hr TITRATE PRN IV TOF 1/4 Last administered on 10/21/16 12:59; Start 10/15/16 at 13:00; Stop 10/31/16 at 10:47; Status DC Sodium Chloride 240 meq/Syringe / Bag 60 ml @ 120 mls/hr ONCE ONCE IV Last administered on 10/15/16 13:25; Start 10/15/16 at 13:15; Stop 10/15/16 at 13:44; Status DC Sodium Chloride (Sodium Chloride) 3 gm TID PO Last administered on 11/04/16 10 :18; Start 10/15/16 at 13:15; Stop 11/04/16 at 11:21; Status DC Fludrocortisone Acetate (Florinef) 0.2 mg BID PO Last administered on 10/16/16 08:12; Start 10/15/16 at 21:00; Stop 10/16/16 at 09:12; Status DC Epinephrine HCl 2 mg/Dextrose 252 ml @ 22.68 mls/ hr TITRATE PRN IV Blood Pressure Management; Start 10/15/16 at 15:00; Stop 10/15/16 at 15:32; Status DC Norepinephrine Bitartrate 4 mg/ Sodium Chloride 250 ml @ 7.5 mls/hr TITRATE PRN IV Blood pressure management; Start 10/15/16 at 15:00; Stop 10/15/16 at 15:56 ; Status DC Sodium Chloride 240 meq/Syringe / Bag 60 ml @ 120 mls/hr ONCE ONCE IV Last administered on 10/15/16 15:33; Start 10/15/16 at 15:30; Stop 10/15/16 at 15:59; Status DC Epinephrine HCl 8 mg/Dextrose 250 ml @ 5.62 mls/hr TITRATE PRN IV Blood Pressure Management Last administered on 10/17/16 08:30; Start 10/15/16 at 15:30 ; Stop 10/17/16 at 10:08; Status DC Phenylephrine HCl 160 mg/Dextrose 500 ml @ 7.5 mls/hr TITRATE PRN IV Blood Pressure Management Last administered on 10/18/16 09:34; Start 10/15/16 at 15:45 ; Stop 10/17/16 at 10:08; Status DC Terbutaline Sulfate (Brethine Inj) 1 mg UNSCH PRN SQ FOR EXTRAVASATION PROTOCOL ; Start 10/15/16 at 15:45; Stop 11/01/16 at 07:51; Status DC Norepinephrine Bitartrate 16 mg/ Sodium Chloride 250 ml @ 1.87 mls/hr TITRATE PRN IV Blood pressure management Last administered on 10/17/16 09:11; Start 10/15 at 16:00; Stop 10/17/16 at 10:08; Status DC Calcium Gluconate 3 gm/Sodium Chloride 130 ml @ 120 mls/hr ONCE ONCE IV Last administered on 10/16/16 09:48; Start 10/16/16 at 10:00; Stop 10/16/16 at 11:04; Status DC Sodium Chloride 240 meq/Syringe / Bag 60 ml @ 120 mls/hr ONCE ONCE IV Last administered on 10/16/16 09:48; Start 10/16/16 at 10:00; Stop 10/16/16 at 10:29; Status DC Magnesium Oxide (Mag-Ox) 800 mg UNSCH PRN PO For Magnesium 1.2 - 1.6 mg/dL; Start 10/16/16 at 09:15; Stop 11/25/16 at 09:51; Status DC Magnesium Sulfate 4 gm/Sodium Chloride 100 ml @ 50 mls/hr UNSCH PRN IV For Magnesium 0.9 - 1.1 mg/dL; Start 10/16/16 at 09:15; Stop 11/25/16 at 09:51; Status DC Magnesium Sulfate 2 gm/Sodium Chloride 100 ml @ 50 mls/hr UNSCH PRN IV For Magnesium 1.2 - 1.6 mg/dL; Start 10/16/16 at 09:15; Stop 11/25/16 at 09:51; Status DC Potassium Chloride 100 ml @ 50 mls/hr Q2H PRN IV For Potassium 2.8 - 3.2 mEq/ L Last administered on 11/15/16 12:36; Start 10/16/16 at 09:15; Stop 11/25/16 at 09:51; Status DC Potassium Chloride 100 ml @ 50 mls/hr Q2H PRN IV For Potassium 3.3 - 3.5 mEq/L ; Start 10/16/16 at 09:15; Stop 11/25/16 at 09:51; Status DC Potassium Chloride 100 ml @ 50 mls/hr Q2H PRN IV For Potassium 2.8 - 3.2 mEq/ L Last administered on 10/27/16 13:26; Start 10/16/16 at 09:15; Stop 11/25/16 at 09:51; Status DC Potassium Chloride 100 ml @ 25 mls/hr UNSCH PRN IV For Potassium 3.3 - 3.5 mEq /L Last administered on 10/30/16 06:06; Start 10/16/16 at 09:15; Stop 11/25/16 at 09:51; Status DC Potassium Phosphate (K-Phos) 2,000 mg Q4H PRN PO For Phosphorus < 2.5 mg/dL; Start 10/16/16 at 09:15; Stop 11/25/16 at 09:51; Status DC Potassium Phosphate (K-Phos) 2,000 mg UNSCH PRN PO/TUBE SEE LABEL COMMENTS; Start 10/16/16 at 09:15; Stop 11/25/16 at 09:51; Status DC Potassium Phosphate 30 mmol/ Sodium Chloride 260 ml @ 42 mls/hr UNSCH PRN IV SEE LABEL COMMENTS Last administered on 10/24/16 20:39; Start 10/16/16 at 09:15 ; Stop 11/25/16 at 09:51; Status DC Sodium Phosphate 30 mmol/Sodium Chloride 250 ml @ 42 mls/hr UNSCH PRN IV For Phosphorus < 2.5 mg/dL Last administered on 10/22/16 06:46; Start 10/16/16 at 09: 15; Stop 11/25/16 at 09:51; Status DC Furosemide (Lasix Inj) 40 mg STK-MED ONCE .ROUTE Last administered on 10/16/16 13:27; Start 10/16/16 at 13:27; Stop 10/16/16 at 13:28; Status DC Vancomycin HCl 1250 mg/Sodium Chloride 262.5 ml @ 250 mls/hr Q8H IV Last administered on 10/18/16 06:10; Start 10/17/16 at 14:00; Stop 10/18/16 at 07:20; Status DC Miscellaneous Information SPECIFIC LAB TO BE LI... ONCE ONCE .XX Last administered on 10/18/16 05:45; Start 10/18/16 at 05:45; Stop 10/18/16 at 05:46; Status DC Sodium Chloride 1,000 ml @ 999 mls/hr BOLUS ONCE IV Last administered on 10:45; Start 10/17/16 at 11:00; Stop 10/17/16 at 12:00; Status DC Epinephrine HCl 8 mg/Dextrose 250 ml @ 5.62 mls/hr TITRATE PRN IV Blood Pressure Management; Start 10/17/16 at 10:15; Status Cancel Norepinephrine Bitartrate 16 mg/ Sodium Chloride 250 ml @ 1.87 mls/hr TITRATE PRN IV Blood pressure management Last administered on 10/20/16 01:07; Start 10/17 at 10:15; Stop 10/31/16 at 10:47; Status DC Phenylephrine HCl 160 mg/Dextrose 500 ml @ 7.5 mls/hr TITRATE PRN IV Blood Pressure Management Last administered on 10/23/16 14:21; Start 10/17/16 at 10:15 ; Stop 10/29/16 at 11:49; Status DC Epinephrine HCl 8 mg/Dextrose 250 ml @ 5.62 mls/hr TITRATE PRN IV Blood Pressure Management Last administered on 10/20/16 15:14; Start 10/17/16 at 11:15 ; Stop 10/29/16 at 11:49; Status DC Heparin Sodium (Porcine) (*HEPARIN INJ Periprocedural ONLY) 10,000 units STK- MED ONCE .ROUTE Last administered on 10/17/16 14:54; Start 10/17/16 at 14:54; Stop 10/17/16 at 14:55; Status DC Verapamil HCl (Isoptin Inj) 20 mg STK-MED ONCE .ROUTE Last administered on 15:34; Start 10/17/16 at 15:34; Stop 10/17/16 at 15:35; Status DC Iodixanol (VISIPAQUE 320 INJ (Rad Spec)) 40 ml STK-MED ONCE I-ARTERIAL Last administered on 10/17/16 16:00; Start 10/17/16 at 16:31; Stop 10/17/16 at 16:32; Status DC Sodium Chloride 1,000 ml @ 100 mls/hr Q10H IV Last administered on 10/18/16 03 :35; Start 10/17/16 at 18:00; Stop 10/18/16 at 07:06; Status DC Potassium Chloride (KCl Powder) 60 meq ONCE ONCE NG Last administered on 08:52; Start 10/18/16 at 09:00; Stop 10/18/16 at 09:01; Status DC Calcium Gluconate 1 gm/Sodium Chloride 110 ml @ 110 mls/hr UNSCH PRN IV For Protein Corrected Calcium Last administered on 10/18/16 10:22; Start 10/18/16 at 09:45; Stop 12/27/16 at 11:31; Status DC Gentamicin Sulfate (Gentamicin Inj) 240 mg STK-MED ONCE IRRIGATION ; Start 10/07 at 12:00; Stop 10/18/16 at 12:13; Status DC Thrombin (Thrombin Top Soln) 5,000 units STK-MED ONCE TOPICAL ; Start 10/07/16 at 12:00; Stop 10/18/16 at 12:13; Status DC Gelatin (Gelfoam 100 Top) 1 foam STK-MED ONCE OTHER ; Start 10/07/16 at 12:00; Stop 10/18/16 at 12:13; Status DC Propofol (Diprivan 200 Mg/20 ml Inj) 200 mg STK-MED ONCE IV ; Start 10/07/16 at 12:00; Stop 10/18/16 at 12:16; Status DC Ephedrine Sulfate (ePHEDrine/NS 25 MG/5 ML SYR) 25 mg STK-MED ONCE IV ; Start at 12:00; Stop 10/18/16 at 12:16; Status DC Phenylephrine HCl (Neosynephrine/ NS 1000 Mcg/10ml Syr) 1,000 mcg STK-MED ONCE IV ; Start 10/07/16 at 12:00; Stop 10/18/16 at 12:16; Status DC Lactated Ringer's 1,000 ml @ As Directed STK-MED ONCE IV ; Start 10/07/16 at 12 :00; Stop 10/18/16 at 12:16; Status DC Milrinone Lactate 20 mg/Sodium Chloride 100 ml @ 12.42 mls/ hr Q8H4M IV Last administered on 10/22/16 09:23; Start 10/18/16 at 16:21; Stop 10/22/16 at 19:37; Status DC Lansoprazole (Prevacid Odt) 30 mg DAILY NG Last administered on 12/16/16 08:54 ; Start 10/20/16 at 09:00; Stop 12/16/16 at 15:01; Status DC Lansoprazole (Prevacid Odt) 30 mg ONCE ONCE NG Last administered on 10/19/16 12:11; Start 10/19/16 at 12:00; Stop 10/19/16 at 12:02; Status DC Sodium Chloride (NS Flush) 2 ml UNSCH PRN IV FLUSH FLUSH AFTER USING IV ACCESS ; Start 10/19/16 at 09:45; Stop 12/27/16 at 11:24; Status DC Sodium Chloride (NS Flush) 2 ml BID IV FLUSH Last administered on 12/26/16 22 :03; Start 10/19/16 at 21:00; Stop 12/27/16 at 11:24; Status DC Artificial Tears (Tears Naturale Opth Soln) 1 drop TID EACH EYE Last administered on 01/23/17 09:49; Start 10/19/16 at 13:00 Ondansetron HCl (Zofran Inj) 4 mg Q6H PRN IV NAUSEA OR VOMITING; Start 10/19/16 at 09:45; Status UNV Albuterol/ Ipratropium (Duoneb Neb) 1 ampule Q6HR NEB INH Last administered on 10/23/16 08:36; Start 10/19/16 at 12:00; Stop 10/23/16 at 11:59; Status DC Albuterol Sulfate (Albuterol Neb) 2.5 mg Q2HR NEB PRN INH SOB/WHEEZING Last administered on 11/22/16 22:09; Start 10/19/16 at 09:45 Miscellaneous Information 1 [id number] XX ; Start 10/19/16 at 09:45; Stop 01/13/17 at 12:47; Status DC Chlorhexidine Gluconate (Chlorhexidine 2% Cloth) Taper DAILY@04 TOP Last administered on 12/24/16 04:00; Start 10/20/16 at 04:00; Stop 01/13/17 at 12:47 ; Status DC Chlorhexidine Gluconate (Chlorhexidine 2% Cloth) 3 pack UNSCH PRN TOP HYGIENIC CARE; Start 10/19/16 at 09:45; Stop 01/13/17 at 12:47; Status DC Docusate Sodium (Colace Liq) 100 mg Q12HR PO Last administered on 10/30/16 07: 55; Start 10/19/16 at 21:00; Stop 10/31/16 at 10:47; Status DC Sennosides (Senna Liq) 8.8 mg BID PO Last administered on 10/29/16 20:15; Start 10/19/16 at 21:00; Stop 10/31/16 at 10:47; Status DC Polyethylene Glycol (Miralax) 17 gm BID OG-TUBE Last administered on 10/29/16 20:15; Start 10/19/16 at 21:00; Stop 10/31/16 at 10:47; Status DC Pharmacy Profile Note 0 ml @ 0 mls/hr UNSCH OTHER ; Start 10/19/16 at 10:15; Stop 10/24/16 at 11:41; Status DC Piperacillin Sod/ Tazobactam Sod 100 ml @ 200 mls/hr Q6H IV Last administered on 10/23/16 05:39; Start 10/19/16 at 12:00; Stop 10/23/16 at 09:43; Status DC Vancomycin HCl 1500 mg/Sodium Chloride 515 ml @ 257.5 mls/ hr Q8H IV Last administered on 10/22/16 04:38; Start 10/19/16 at 13:00; Stop 10/22/16 at 13:55; Status DC Miscellaneous Information SPECIFIC LAB TO BE DRAWN:VANCOMYCIN TROUGH DATE TO... ONCE ONCE .XX Last administered on 10/20/16 12:45; Start 10/20/16 at 12:45; Stop 10/20/16 at 12:46; Status DC Verapamil HCl (Isoptin Inj) 5 mg STK-MED ONCE .ROUTE ; Start 10/19/16 at 12:44; Stop 10/19/16 at 12:45; Status DC Verapamil HCl (Isoptin Inj) 15 mg STK-MED ONCE .ROUTE ; Start 10/19/16 at 12:44; Stop 10/19/16 at 12:45; Status DC Iodixanol (VISIPAQUE 320 INJ (Rad Spec)) 30 ml STK-MED ONCE I-ARTERIAL Last administered on 10/19/16 13:50; Start 10/19/16 at 14:05; Stop 10/19/16 at 14:06; Status DC Lactulose (Lactulose Liq) 30 ml BID OG-TUBE Last administered on 10/31/16 20: 30; Start 10/20/16 at 21:00; Stop 11/01/16 at 07:51; Status DC Mineral Oil (Kondremul Liq) 30 ml ONCE ONCE PO ; Start 10/20/16 at 09:15; Stop 10/20/16 at 09:16; Status Cancel Methylnaltrexone [place] (Relistor Inj) 12 mg ONCE ONCE SQ Last administered on 10/20/16 14:17; Start 10/20/16 at 09:15; Stop 10/20/16 at 09:39; Status DC Insulin Aspart (NovoLOG SUPPLEMENTAL SCALE) 1 Q4HR SQ Last administered on 10/27 11:57; Start 10/20/16 at 12:00; Stop 11/03/16 at 12:42; Status DC Multivitamins 10 ml/Folic Acid 1 mg/Amino Acids/ Electrolytes/ Dextrose 2,010.2 ml @ 30 mls/hr Q24H IV-CENTRAL Last administered on 10/28/16 20:01; Start 10/20/16 at 20:00; Stop 10/31/16 at 10:47; Status DC Fat Emulsion Intravenous 250 ml @ 10 mls/hr Q24H IV-CENTRAL Last administered on 10/29/16 19:58; Start 10/20/16 at 20:00; Stop 10/31/16 at 10:47; Status DC Mineral Oil (Mineral Oil Liq) 30 ml ONCE ONCE PO ; Start 10/20/16 at 14:00; Stop 10/20/16 at 14:01; Status Cancel Mineral Oil (Mineral Oil Liq) 30 ml ONCE ONCE PO Last administered on 15:32; Start 10/20/16 at 14:00; Stop 10/20/16 at 14:01; Status DC Potassium Phosphate 30 mmol/ Sodium Chloride 260 ml @ 43.333 mls/ hr ONCE ONCE IV ; Start 10/20/16 at 18:00; Stop 10/20/16 at 23:59; Status DC Potassium Chloride 100 ml @ 25 mls/hr BOLUS ONCE IV Last administered on 17:17; Start 10/20/16 at 17:00; Stop 10/20/16 at 20:59; Status DC Miscellaneous Information SPECIFIC LAB TO BE LI... ONCE ONCE .XX Last administered on 10/22/16 12:45; Start 10/22/16 at 12:45; Stop 10/22/16 at 12:46; Status DC Diltiazem HCl 125 mg/Sodium Chloride 125 ml @ 5 mls/hr TITRATE PRN IV Tachycardia Last administered on 10/27/16 08:13; Start 10/22/16 at 10:30; Stop 10/28/16 at 18:49; Status DC Hydrocortisone Sodium Succinate (SoluCORTEF INJ) 75 mg Q8H IV PUSH Last administered on 10/24/16 04:05; Start 10/22/16 at 12:00; Stop 10/24/16 at 09:40 ; Status DC Milrinone Lactate 20 mg/Sodium Chloride 100 ml @ 9.79 mls/hr [id number] IV Last administered on 10/30/16 03:35; Start 10/22/16 at 10:23; Stop 11/01/16 at 07:51 ; Status DC Furosemide (Lasix Inj) 40 mg NOW ONCE IV PUSH Last administered on 10/22/16 14 :46; Start 10/22/16 at 14:30; Stop 10/22/16 at 14:31; Status DC Furosemide 100 mg/ Sodium Chloride 100 ml @ 10 mls/hr CONTINUOUS IV Last administered on 10/24/16 01:16; Start 10/22/16 at 15:00; Stop 10/24/16 at 11:17 ; Status DC Vancomycin HCl 1500 mg/Sodium Chloride 515 ml @ 257.5 mls/ hr Q12H IV Last administered on 10/23/16 08:32; Start 10/23/16 at 09:00; Stop 10/23/16 at 09:43 ; Status DC Potassium Chloride 100 ml @ 25 mls/hr Q4H IV Last administered on 10/22/16 18: 05; Start 10/22/16 at 15:00; Stop 10/22/16 at 22:59; Status DC Miscellaneous Information SPECIFIC LAB TO BE LI... ONCE ONCE .XX ; Start 10/25 at 08:45; Stop 10/25/16 at 08:45; Status DC Potassium Chloride 100 ml @ 25 mls/hr Q4H IV Last administered on 10/23/16 19 :46; Start 10/23/16 at 18:30; Stop 10/24/16 at 02:29; Status DC Hydrocortisone Sodium Succinate (SoluCORTEF INJ) 50 mg Q12H IV PUSH Last administered on 10/25/16 04:42; Start 10/24/16 at 16:00; Stop 10/25/16 at 08:37 ; Status DC Insulin Detemir (Levemir Inj) 12 units Q12HR SQ Last administered on 10/28/16 09:23; Start 10/24/16 at 09:45; Stop 10/28/16 at 18:30; Status DC Furosemide 100 mg/ Sodium Chloride 100 ml @ 5 mls/hr CONTINUOUS IV Last administered on 10/27/16 08:12; Start 10/24/16 at 12:00; Stop 10/27/16 at 08:59 ; Status DC Hydrocortisone Sodium Succinate (SoluCORTEF INJ) 25 mg Q12H IV PUSH Last administered on 10/27/16 04:14; Start 10/25/16 at 16:00; Stop 10/27/16 at 08:59 ; Status DC Acetazolamide Sodium (Diamox Inj) 500 mg DAILY IV PUSH Last administered on 08:15; Start 10/25/16 at 09:00; Stop 10/28/16 at 03:25; Status DC Phenytoin Sodium (Dilantin Inj) 100 mg Q8HR IV Last administered on 11/01/16 05:30; Start 10/25/16 at 22:00; Stop 11/01/16 at 07:52; Status DC Furosemide (Lasix Inj) 40 mg DAILY IV PUSH Last administered on 11/09/16 09:11 ; Start 10/28/16 at 09:00; Stop 11/09/16 at 10:18; Status DC Sodium Chloride 1,000 ml @ 30 mls/hr Q24H IV Last administered on 10/28/16 19 :30; Start 10/28/16 at 05:45; Stop 10/29/16 at 11:49; Status DC Dextrose (D50w (Syr) Inj) 50 ml STK-MED ONCE .ROUTE ; Start 10/28/16 at 17:41; Stop 10/28/16 at 17:42; Status DC Insulin Detemir (Levemir Inj) 8 units Q12HR SQ Last administered on 10/29/16 08:28; Start 10/28/16 at 21:00; Stop 11/01/16 at 14:52; Status DC Protein (Beneprotein Powder) 1 pack TID G-TUBE Last administered on 12/14/16 12:08; Start 10/29/16 at 13:00; Stop 12/14/16 at 13:57; Status DC Diltiazem HCl (Cardizem) 60 mg Q6HR PO Last administered on 11/02/16 04:46; Start 10/29/16 at 13:00; Stop 11/02/16 at 07:19; Status DC Levetriacetam (Keppra Liq) 500 mg Q12HR NG Last administered on 12/26/16 22: 02; Start 10/31/16 at 21:00; Stop 12/27/16 at 15:58; Status DC Cisatracurium Besylate (Nimbex Inj) 20 mg ONCE ONCE IV ; Start 11/01/16 at 07: 45; Stop 11/01/16 at 07:55; Status DC Midazolam HCl (Versed Inj) 10 mg ONCE ONCE IV PUSH Last administered on 11:36; Start 11/01/16 at 07:45; Stop 11/01/16 at 07:53; Status DC Fentanyl Citrate (fentaNYL INJ) 250 mcg ONCE ONCE IV PUSH Last administered on 11/01/16 11:37; Start 11/01/16 at 07:45; Stop 11/01/16 at 07:53; Status DC Lactulose (Lactulose Liq) 30 ml QID OG-TUBE Last administered on 11/11/16 12: 28; Start 11/01/16 at 09:00; Stop 11/12/16 at 08:36; Status DC Phenytoin (Dilantin Liq) 100 mg Q8HR PO Last administered on 11/06/16 06:34; Start 11/01/16 at 14:00; Stop 11/06/16 at 12:28; Status DC Cisatracurium Besylate (Nimbex Inj) 20 mg ONCE ONCE IV Last administered on 11:36; Start 11/01/16 at 09:15; Stop 11/01/16 at 09:16; Status DC Oxycodone HCl (Roxicodone Intensol Liq) 10 mg Q4H PRN PO pain 1-6 Last administered on 11/11/16 02:28; Start 11/01/16 at 15:00; Stop 11/24/16 at 11: 19; Status DC Hydromorphone HCl (Dilaudid Pf Inj) 0.5 mg Q4H PRN IV PUSH pain 7-10 or not taking po Last administered on 11/19/16 01:42; Start 11/01/16 at 15:00; Stop 11/29/16 at 12:24; Status DC Haloperidol Lactate (Haldol Inj) 5 mg Q4H PRN IV PUSH agitation; Start at 15:00; Stop 11/29/16 at 14:45; Status DC Melatonin (Melatonin) 5 mg HS PO Last administered on 01/23/17 23:44; Start 11/01/16 at 21:00 Diltiazem HCl (Cardizem) 90 mg Q6HR PO Last administered on 01/24/17 07:04; Start 11/02/16 at 12:00 Pharmacy Profile Note 0 ml @ 0 mls/hr UNSCH OTHER ; Start 11/02/16 at 15:30; Stop 11/06/16 at 15:48; Status DC Vancomycin HCl 1250 mg/Sodium Chloride 262.5 ml @ 250 mls/hr Q8H IV Last administered on 11/04/16 02:20; Start 11/02/16 at 18:00; Stop 11/05/16 at 16:14 ; Status DC Cefepime HCl 2000 mg/Sodium Chloride 100 ml @ 200 mls/hr Q8H IV Last administered on 11/06/16 08:42; Start 11/02/16 at 17:00; Stop 11/06/16 at 15:48 ; Status DC Metronidazole 100 ml @ 100 mls/hr Q6H IV Last administered on 11/04/16 09:26 ; Start 11/02/16 at 16:00; Stop 11/04/16 at 11:21; Status DC Miscellaneous Information SPECIFIC LAB TO BE DRAWN:VANCOMYCIN TROUGH DATE TO... ONCE ONCE .XX ; Start 11/03/16 at 17:45; Stop 11/03/16 at 17:46; Status DC Insulin Aspart (NovoLOG SUPPLEMENTAL SCALE) 1 Q12H SQ Last administered on 11/04 00:42; Start 11/03/16 at 12:00; Stop 11/12/16 at 08:40; Status DC Potassium Chloride 100 ml @ 50 mls/hr Q2H IV ; Start 11/03/16 at 15:00; Stop at 16:58; Status DC Miscellaneous Information SPECIFIC LAB TO BE DRAWN:VANCOMYCIN TROUGH DATE TO... ONCE ONCE .XX Last administered on 11/04/16 01:45; Start 11/04/16 at 01:45; Stop 11/04/16 at 01:46; Status DC Sodium Chloride 1,000 ml @ 84 mls/hr [id number] IV Last administered on 13:02; Start 11/04/16 at 11:15; Stop 11/05/16 at 11:14; Status DC Vancomycin HCl 1250 mg/Sodium Chloride 262.5 ml @ 250 mls/hr Q12H IV Last administered on 11/06/16 06:34; Start 11/05/16 at 18:00; Stop 11/06/16 at 15:48 ; Status DC Miscellaneous Information SPECIFIC LAB TO BE LI... ONCE ONCE .XX ; Start 11/07 at 05:45; Stop 11/07/16 at 05:45; Status DC Aztreonam 1000 mg/ Sodium Chloride 100 ml @ 200 mls/hr Q8H IV Last administered on 11/08/16 08:00; Start 11/06/16 at 16:00; Stop 11/08/16 at 12:55 ; Status DC Lactobacillus Acidophilus (Lactinex) 1 tab TID PO Last administered on 12:16; Start 11/06/16 at 18:00; Stop 12/14/16 at 13:57; Status DC Fluconazole (Diflucan) 100 mg DAILY PO Last administered on 11/16/16 09:23; Start 11/06/16 at 16:00; Stop 11/16/16 at 13:20; Status DC Norepinephrine Bitartrate (Levophed Inj) 4 mg STK-MED ONCE .ROUTE ; Start at 02:02; Stop 11/07/16 at 02:03; Status DC Chlorhexidine Gluconate (Hibiclens 4% Top Soln) 1 applic HS TOP Last administered on 11/07/16 23:28; Start 11/07/16 at 21:00; Stop 11/08/16 at 09:58 ; Status DC Prednisone (Deltasone) 20 mg BID PO Last administered on 11/09/16 21:08; Start 11/08/16 at 13:00; Stop 11/09/16 at 21:01; Status DC Levofloxacin (Levaquin) 750 mg DAILY PO Last administered on 11/15/16 08:23; Start 11/08/16 at 13:00; Stop 11/15/16 at 12:59; Status DC Furosemide (Lasix Liq) 20 mg DAILY NG Last administered on 12/01/16 08:38; Start 11/09/16 at 10:30; Stop 12/02/16 at 09:49; Status DC Cefazolin Sodium 1000 mg/Sodium Chloride 100 ml @ 200 mls/hr NOW ONCE IV ; Start 11/12/16 at 15:30; Stop 11/12/16 at 15:59; Status DC Water (Free Water) 200 ml Q6HR G-TUBE Last administered on 11/15/16 18:00; Start 11/14/16 at 18:45; Stop 11/15/16 at 18:50; Status DC Potassium Bicarb/ Potassium Chloride (K-Lyte Cl Eff) 50 meq NOW ONCE PO Last administered on 11/15/16 10:44; Start 11/15/16 at 08:30; Stop 11/15/16 at 08:31 ; Status DC Water (Free Water) 300 ml Q4HR G-TUBE Last administered on 11/20/16 16:00; Start 11/15/16 at 20:00; Stop 11/21/16 at 20:04; Status DC Acetylcysteine (Mucomyst 20% Neb) 2 ml Q6HR NEB NEB Last administered on 04:24; Start 11/16/16 at 10:00; Stop 11/20/16 at 09:59; Status DC Albuterol/ Ipratropium (Duoneb Neb) 1 ampule Q6HR NEB NEB Last administered on 11/20/16 08:04; Start 11/16/16 at 10:00; Stop 11/20/16 at 09:59; Status DC Metoclopramide HCl (Reglan Inj) 10 mg Q8H IV PUSH Last administered on 09:40; Start 11/18/16 at 02:00; Stop 12/02/16 at 09:51; Status DC Ondansetron HCl (Zofran Inj) 4 mg Q6H PRN IV PUSH nausea; Start 11/18/16 at 01: 45; Stop 12/27/16 at 11:33; Status DC Sodium Chloride 1,000 ml @ 999 mls/hr BOLUS ONCE IV Last administered on 11/18 01:58; Start 11/18/16 at 02:00; Stop 11/18/16 at 03:00; Status DC Bacitracin (Baciguent Oint) 1 applic Q12HR TOPICAL Last administered on 09:00; Start 11/18/16 at 11:00 Levofloxacin (Levaquin) 750 mg DAILY PO Last administered on 11/25/16 09:19; Start 11/18/16 at 12:00; Stop 11/25/16 at 11:59; Status DC Sodium Chloride 1,000 ml @ 75 mls/hr [id number] IV Last administered on 01:08; Start 11/18/16 at 13:00; Stop 11/19/16 at 12:59; Status DC Protein (Beneprotein Powder) 1 pack TID G-TUBE Last administered on 01/10/17 18:00; Start 11/19/16 at 09:00; Stop 01/13/17 at 12:47; Status DC Water (Free Water) VOLUME OF WATER: 200 ML Q6HR G-TUBE Last administered on 18:00; Start 11/22/16 at 00:00; Stop 11/26/16 at 18:43; Status DC Albuterol/ Ipratropium (Duoneb Neb) 1 ampule QID NEB NEB Last administered on 11/27/16 11:55; Start 11/23/16 at 16:00; Stop 11/27/16 at 15:59; Status DC Povidone Iodine (Betadine 10% Oint) 1 applic DAILY TOPICAL Last administered on 12/23/16 09:00; Start 11/24/16 at 09:00; Stop 12/24/16 at 12:51; Status DC Oxycodone HCl (Roxicodone Intensol Liq) 10 mg Q4H PRN PO PAIN SCALE 1 TO 6; Start 11/24/16 at 11:30; Stop 11/29/16 at 14:38; Status DC Midazolam HCl (Versed Inj) 5 mg STK-MED ONCE .ROUTE Last administered on 16:24; Start 11/26/16 at 16:24; Stop 11/26/16 at 16:25; Status DC Rocuronium [place] (Zemuron Inj) 100 mg STK-MED ONCE .ROUTE Last administered on 11/26/16 18:19; Start 11/26/16 at 16:24; Stop 11/26/16 at 16:25; Status DC Propofol 50 ml @ As Directed STK-MED ONCE .ROUTE Last administered on 18:29; Start 11/26/16 at 16:53; Stop 11/26/16 at 16:54; Status DC Chlorhexidine Gluconate (Peridex 0.12% Liq) 15 ml BID@08,20 MT Last administered on 01/20/17 08:00; Start 11/26/16 at 20:00 Propofol 100 ml @ 1.668 mls/ hr TITRATE PRN IV SEDATION Last administered on 11/26/16 21:29; Start 11/26/16 at 18:45; Stop 12/12/16 at 16:47; Status DC Fentanyl Citrate (fentaNYL INJ) 100 mcg Q1H PRN IV PUSH any pain; Start at 18:45; Stop 11/29/16 at 14:38; Status DC Fentanyl Citrate 250 ml @ 5 mls/hr TITRATE PRN IV SEDATION Last administered on 11/29/16 06:30; Start 11/26/16 at 18:45; Stop 12/12/16 at 16:47; Status DC Propofol 50 ml @ As Directed STK-MED ONCE .ROUTE Last administered on 18:47; Start 11/26/16 at 18:43; Stop 11/26/16 at 18:44; Status DC Cisatracurium Besylate (Nimbex Inj) 11 mg ONCE ONCE IV PUSH Last administered on 11/26/16 19:30; Start 11/26/16 at 18:45; Stop 11/26/16 at 18:50; Status DC Cisatracurium Besylate 100 mg/ Sodium Chloride 260 ml @ 8.67 mls/hr TITRATE PRN IV TOF 1/4 Last administered on 11/28/16 06:25; Start 11/26/16 at 18:45; Stop 11/28/16 at 10:46; Status DC Epinephrine HCl (EPINEPHrine (1:10,000) INJ) 1 mg STK-MED ONCE .ROUTE ; Start 11/26/16 at 20:06; Stop 11/26/16 at 20:07; Status DC Atropine Sulfate (Atropine Inj) 1 mg STK-MED ONCE .ROUTE ; Start 11/26/16 at 20 :06; Stop 11/26/16 at 20:07; Status DC Lidocaine HCl (Xylocaine 2% Inj) 100 mg STK-MED ONCE .ROUTE ; Start 11/26/16 at 20:07; Stop 11/26/16 at 20:08; Status DC Iohexol (Omnipaque 350 Inj) 95 ml STK-MED ONCE IVCONTRAST Last administered on 11/26/16 20:20; Start 11/26/16 at 20:20; Stop 11/26/16 at 20:21; Status DC Lactated Ringer's 1,000 ml @ 84 mls/hr [id number] IV ; Start 11/26/16 at 23:00; Stop 11/27/16 at 01:37; Status DC Sodium Chloride 500 ml @ 50 mls/hr Q10H IV Last administered on 11/27/16 01: 50; Start 11/27/16 at 01:45; Stop 11/27/16 at 11:44; Status DC Midazolam HCl 100 ml @ 2 mls/hr TITRATE PRN IV SEDATION Last administered on 22:12; Start 11/27/16 at 01:45; Stop 11/29/16 at 14:45; Status DC Midazolam HCl (Versed Inj) 2 mg Q15M PRN IV PUSH SEDATION; Start 11/27/16 at 01:45; Stop 11/29/16 at 14:45; Status DC Lactated Ringer's 1,000 ml @ 84 mls/hr [id number] IV Last administered on 01:17; Start 11/27/16 at 03:15; Stop 12/02/16 at 07:00; Status DC Cisatracurium Besylate 100 mg/ Sodium Chloride 250 ml @ 8.34 mls/hr TITRATE PRN IV TOF 1/4 Last administered on 11/28/16 11:11; Start 11/28/16 at 11:00; Stop 11/28/16 at 14:11; Status DC Sodium Chloride 250 ml @ 15 mls/hr ONCE ONCE IV Last administered on 11:15; Start 11/28/16 at 11:15; Stop 11/29/16 at 03:54; Status DC Epinephrine HCl (EPINEPHrine (1:10,000) INJ) 1 mg STK-MED ONCE .ROUTE ; Start 11/29/16 at 04:20; Stop 11/29/16 at 04:21; Status DC Atropine Sulfate (Atropine Inj) 1 mg STK-MED ONCE .ROUTE ; Start 11/29/16 at 04 :20; Stop 11/29/16 at 04:21; Status DC Lidocaine HCl (Xylocaine 2% Inj) 100 mg STK-MED ONCE .ROUTE ; Start 11/29/16 at 04:20; Stop 11/29/16 at 04:21; Status DC Iohexol (Omnipaque 350 Inj) 70 ml STK-MED ONCE IVCONTRAST Last administered on 11/29/16 05:14; Start 11/29/16 at 05:14; Stop 11/29/16 at 05:15; Status DC Epinephrine HCl (EPINEPHrine (1:10,000) INJ) 1 mg STK-MED ONCE .ROUTE ; Start 11/29/16 at 06:45; Stop 11/29/16 at 06:46; Status DC Epinephrine HCl (EPINEPHrine (1:10,000) INJ) 4 mg STK-MED ONCE .ROUTE ; Start 11/29/16 at 06:48; Stop 11/29/16 at 06:49; Status DC Hydromorphone HCl (Dilaudid Pf Inj) 0.5 mg Q4H PRN IV PUSH pain 7-10 or not taking po; Start 11/29/16 at 12:30; Stop 11/29/16 at 14:38; Status DC Rocuronium [place] (Zemuron Inj) 50 mg STK-MED ONCE .ROUTE Last administered on 11/29/16 12:51; Start 11/29/16 at 12:51; Stop 11/29/16 at 12:52; Status DC Rocuronium [place] (Zemuron Inj) 50 mg STK-MED ONCE .ROUTE Last administered on 11/29/16 13:30; Start 11/29/16 at 13:30; Stop 11/29/16 at 13:31; Status DC Collagenase (Santyl Oint) 1 applic DAILY TOPICAL Last administered on 09:03; Start 11/30/16 at 12:00; Stop 01/17/17 at 08:46; Status DC Albuterol/ Ipratropium (Duoneb Neb) 1 ampule Q6HR NEB NEB Last administered on 12/04/16 09:06; Start 11/30/16 at 16:00; Stop 12/04/16 at 09:12; Status DC Dextrose (D50w (Vial) Inj) 50 ml UNSCH PRN IV PUSH HYPOGLYCEMIA-SEE COMMENTS; Start 11/30/16 at 12:15; Stop 12/02/16 at 19:38; Status DC Glucagon (Glucagon Inj) 1 mg UNSCH PRN OTHER HYPOGLYCEMIA-SEE COMMENTS; Start 11/30/16 at 12:15; Stop 12/02/16 at 19:38; Status DC Insulin Human Regular (NovoLIN R SUPPLEMENTAL SCALE) 1 ACHS SLIDING SCALE SQ ; Start 11/30/16 at 17:00; Stop 12/02/16 at 09:49; Status DC Acetaminophen (Tylenol) 650 mg Q4H PRN PO PAIN OR TEMP >100.4 Last administered on 12/20/16 14:32; Start 11/30/16 at 13:15; Stop 12/27/16 at 11: 35; Status DC Magnesium Sulfate/ Dextrose 100 ml @ 100 mls/hr Q1H IV Last administered on 16:52; Start 12/01/16 at 14:00; Stop 12/01/16 at 15:59; Status DC Potassium Chloride (KCl Powder) 20 meq ONCE ONCE PO ; Start 12/01/16 at 14:00 ; Stop 12/01/16 at 14:01; Status DC Fentanyl Citrate (fentaNYL INJ) 200 mcg STK-MED ONCE .ROUTE Last administered on 12/01/16 15:00; Start 12/01/16 at 14:45; Stop 12/01/16 at 14:46; Status DC Midazolam HCl (Versed Inj) 4 mg STK-MED ONCE .ROUTE Last administered on 15:00; Start 12/01/16 at 14:45; Stop 12/01/16 at 14:46; Status DC Fentanyl Citrate (fentaNYL INJ) 100 mcg STK-MED ONCE .ROUTE Last administered on 12/01/16 15:55; Start 12/01/16 at 15:53; Stop 12/01/16 at 15:54; Status DC Midazolam HCl (Versed Inj) 2 mg STK-MED ONCE .ROUTE Last administered on 16:00; Start 12/01/16 at 15:53; Stop 12/01/16 at 15:54; Status DC Cefazolin Sodium/ Dextrose 50 ml @ As Directed STK-MED ONCE .ROUTE Last administered on 12/01/16 16:00; Start 12/01/16 at 16:03; Stop 12/01/16 at 16 :04; Status DC Iodixanol (VISIPAQUE 320 INJ (Rad Spec)) 65 ml STK-MED ONCE I-ARTERIAL Last administered on 12/01/16 16:15; Start 12/02/16 at 08:47; Stop 12/02/16 at 08 :51; Status DC Potassium Chloride (KCl Powder) 20 meq ONCE ONCE PO ; Start 12/02/16 at 10:00 ; Stop 12/02/16 at 10:02; Status DC Insulin Human Regular (NovoLIN R SUPPLEMENTAL SCALE) 1 Q6HR SQ ; Start at 12:00; Stop 12/02/16 at 19:38; Status DC Magnesium Sulfate/ Dextrose 100 ml @ 100 mls/hr ONCE ONCE IV Last administered on 12/02/16 11:11; Start 12/02/16 at 10:00; Stop 12/02/16 at 10 :59; Status DC Metoclopramide HCl (Reglan Inj) 5 mg Q8H IV PUSH Last administered on 02:28; Start 12/02/16 at 18:00; Stop 12/12/16 at 16:47; Status DC Racepinephrine (Racepinephrine 2.25% Neb) 0.5 ml Q4HR NEB PRN NEB hemoptysis/ stridor; Start 12/03/16 at 15:00; Stop 01/13/17 at 12:47; Status DC Albuterol/ Ipratropium (Duoneb Neb) 1 ampule Q6HR NEB NEB Last administered on 12/08/16 01:13; Start 12/04/16 at 10:00; Stop 12/08/16 at 09:59; Status DC Nitroglycerin (Nitroglycerin 2% Oint) 2 inch Q6H PRN TOPICAL SBP>160, DBP>90; Start 12/04/16 at 09:15 Clonidine (Catapres) 0.1 mg Q8H PO Last administered on 01/10/17 01:22; Start 12/04/16 at 10:00; Stop 01/10/17 at 16:51; Status DC Hydralazine HCl (Apresoline Inj) 10 mg Q1H PRN IV PUSH SBP>160, DBP>90 Last administered on 12/04/16 12:39; Start 12/04/16 at 09:15; Stop 12/16/16 at 15: 01; Status DC Labetalol HCl (Trandate Inj) 10 mg Q1H PRN IV PUSH SBP>160, DBP>90, HR>65; Start 12/04/16 at 09:15; Stop 12/16/16 at 15:01; Status DC Enalaprilat (Vasotec Inj) 1.25 mg Q6H PRN IV PUSH SBP>160, DBP>90; Start 12/04 at 09:15 Sodium Chloride (NS Flush) DAILY IV FLUSH Last administered on 01/09/17 09: 19; Start 12/04/16 at 18:00; Stop 01/13/17 at 12:47; Status DC Sodium Chloride (NS Flush) UNSCH PRN IV FLUSH SEE PROTOCOL; Start 12/04/16 at 18:00; Stop 01/13/17 at 12:47; Status DC Loperamide HCl (Imodium Liq) 2 mg UNSCH PRN PO DIARRHEA; Start 12/14/16 at 10: 45 Lactobacillus Acidophilus (Lactinex) 1 tab TID PO Last administered on 09:00; Start 12/14/16 at 18:00 Famotidine (Pepcid) 20 mg BID PO Last administered on 01/24/17 09:00; Start 12/16/16 at 21:00 Ferrous Sulfate (Ferrous Sulfate) 325 mg BID@12,17 PO Last administered on 17:50; Start 12/22/16 at 12:00 Ascorbic Acid (Vitamin C) 500 mg BID PO Last administered on 01/24/17 09:00; Start 12/22/16 at 09:00 Chlorhexidine Gluconate (Hibiclens 4% Top Soln) 1 applic HS TOP Last administered on 12/26/16 21:00; Start 12/22/16 at 21:00; Stop 12/26/16 at 21: 01; Status DC Cefazolin Sodium/ Dextrose 50 ml @ 150 mls/hr ONCE ONCE IV Last administered on 12/27/16 08:15; Start 12/27/16 at 06:00; Stop 12/27/16 at 06:19; Status DC Lactated Ringer's 1,000 ml @ 30 mls/hr Q24H PRN IV SEE LABEL COMMENTS; Start 12/26/16 at 15:00; Stop 12/27/16 at 11:25; Status DC Sodium Chloride 500 ml @ 30 mls/hr [id number] PRN IV SEE LABEL COMMENTS; Start at 15:00; Stop 12/27/16 at 11:25; Status DC Metoprolol Tartrate (Lopressor) 25 mg CHARGER TESTER PRN PO SEE LABEL COMMENTS; Start 12/26/16 at 15:00; Stop 12/29/16 at 14:59; Status DC Povidone Iodine (Betadine 5% Antisepsis Kit) 1 applic CHARGER TESTER PRN EACH NARE SEE LABEL COMMENTS; Start 12/26/16 at 15:00; Stop 12/29/16 at 14:59; Status DC Chlorhexidine Gluconate (Chlorhexidine 2% Cloth) 3 pack CHARGER TESTER PRN TOPICAL SEE LABEL COMMENTS; Start 12/26/16 at 15:00; Stop 12/29/16 at 14:59; Status DC Insulin Human Regular (NovoLIN R INJ) See Protocol Table ... CHARGER TESTER PRN SQ SEE PROTOCOL TABLE; Start 12/26/16 at 15:00; Stop 12/29/16 at 14:59; Status DC Thrombin (Thrombin Top Soln) 10,000 units STK-MED ONCE .ROUTE Last administered on 12/27/16 10:00; Start 12/27/16 at 07:52; Stop 12/27/16 at 07 :53; Status DC Gelatin (Gelfoam 100 Top) 1 foam STK-MED ONCE .ROUTE Last administered on 12/27 10:00; Start 12/27/16 at 07:53; Stop 12/27/16 at 07:54; Status DC Gentamicin Sulfate (Gentamicin Inj) 240 mg STK-MED ONCE .ROUTE Last administered on 12/27/16 10:00; Start 12/27/16 at 07:53; Stop 12/27/16 at 07 :54; Status DC Lidocaine/ Epinephrine (Xylocaine-Epi 1%-1:100,000 Inj) 20 ml STK-MED ONCE .ROUTE Last administered on 12/27/16 10:00; Start 12/27/16 at 07:54; Stop 12/27/16 at 07:55; Status DC Acetaminophen 100 ml @ As Directed STK-MED ONCE IV ; Start 12/27/16 at 07:57; Stop 12/27/16 at 07:58; Status DC Artificial Tears (Lacrilube Opht Oint) 3.5 applic STK-MED ONCE .ROUTE ; Start 12/27/16 at 07:58; Stop 12/27/16 at 07:59; Status DC Levetriacetam (Keppra Inj) 500 mg STK-MED ONCE IV Last administered on 10:10; Start 12/27/16 at 10:06; Stop 12/27/16 at 10:07; Status DC Potassium Chloride/Sodium Chloride 1,000 ml @ 100 mls/hr Q10H IV Last administered on 01/12/17 10:00; Start 12/27/16 at 11:17; Stop 01/12/17 at 11 :04; Status DC IV Flush (NS Flush) 2 ml UNSCH PRN IVF FLUSH AFTER USING IV ACCESS; Start at 11:30 IV Flush (NS Flush) 2 ml BID IVF Last administered on 12/1/17at 08:44; Start 12/27/16 at 21:00; Stop 01/13/17 at 12:47; Status DC Cefazolin Sodium/ Dextrose 50 ml @ 100 mls/hr Q8H IV Last administered on 08:00; Start 12/27/16 at 16:00; Stop 12/28/16 at 08:29; Status DC Levetriacetam 500 mg/Sodium Chloride 105 ml @ 400 mls/hr Q12H IV ; Start 12/27 at 12:00; Status Cancel Bisacodyl (Dulcolax Supp) 10 mg DAILY PRN RECTAL CONSTIPATION; Start 12/27/16 at 11:30 Docusate Sodium (Colace) 100 mg BID PO Last administered on 01/24/17 09:00; Start 12/27/16 at 21:00 Pantoprazole Sodium (Protonix) 40 mg DAILY PO Last administered on 01/13/17 08 :44; Start 12/28/16 at 09:00; Stop 01/13/17 at 12:47; Status DC Pantoprazole Sodium (Protonix Inj) 40 mg DAILY IVP Last administered on 08:44; Start 12/28/16 at 09:00; Stop 01/13/17 at 12:43; Status DC Ondansetron HCl (Zofran Inj) 4 mg Q6H PRN IV PUSH NAUSEA OR VOMITING; Start at 11:30 Calcium Gluconate (Calcium Gluconate Inj) 1 gm UNSCH PRN IV SEE LABEL COMMENTS ; Start 12/27/16 at 11:30; Stop 12/27/16 at 11:31; Status DC Potassium Chloride 100 ml @ 50 mls/hr UNSCH PRN IV POTASSIUM LESS THAN 4; Start 12/27/16 at 11:30; Stop 01/10/17 at 16:51; Status DC Magnesium Sulfate 4 gm/Sodium Chloride 108 ml @ 108 mls/hr UNSCH PRN IV MAGNESIUM LESS THAN 2; Start 12/27/16 at 11:30; Stop 01/10/17 at 16:51; Status DC Acetaminophen/ Hydrocodone Bitart (Willcox 10-325 Mg) 1 tab Q4H PRN PO PAIN 1-5 WHEN TOLERATING PO Last administered on 12/30/16 05:54; Start 12/27/16 at 11: 30 Acetaminophen/ Hydrocodone Bitart (Willcox 10-325 Mg) 2 tab Q4H PRN PO PAIN 6-10 WHEN TOLERATING PO Last administered on 12/30/16 14:24; Start 12/27/16 at 11: 30 Morphine Sulfate (Morphine Inj) 2 mg Q2H PRN IV PUSH PAIN SCALE 1 TO 6 Last administered on 12/29/16 15:05; Start 12/27/16 at 11:30; Stop 01/13/17 at 12: 43; Status DC Morphine Sulfate (Morphine Inj) 4 mg Q2H PRN IV PUSH PAIN SCALE 7 TO 10 Last administered on 12/28/16 18:00; Start 12/27/16 at 11:30; Stop 01/13/17 at 12: 43; Status DC Acetaminophen (Tylenol) 650 mg Q4H PRN PO TEMPERATURE > 101.5 F; Start at 11:30 Meperidine HCl (*DEMEROL INJ PERIprocedural ONLY) 25 mg STK-MED ONCE .ROUTE Last administered on 12/27/16 11:21; Start 12/27/16 at 11:21; Stop 12/27/16 at 11:22; Status DC Calcium Gluconate 1 gm/Sodium Chloride 110 ml @ 110 mls/hr UNSCH PRN IV SEE LABEL COMMENT; Start 12/27/16 at 12:00; Stop 01/10/17 at 16:51; Status DC Miscellaneous Information ALL NURSING DEPARTME... UNSCH PRN .XX SEE LABEL COMMENTS; Start 12/27/16 at 11:45; Stop 12/28/16 at 11:44; Status DC Levetriacetam 500 mg/Sodium Chloride 105 ml @ 400 mls/hr Q12H IV ; Start 12/27 at 22:00; Status Cancel Levetriacetam (Keppra Liq) 500 mg Q12HR PEG Last administered on 01/13/17 08: 44; Start 12/27/16 at 21:00; Stop 01/13/17 at 12:47; Status DC Iohexol (Omnipaque 350 Inj) 85 ml STK-MED ONCE IVCONTRAST Last administered on 12/28/16 17:46; Start 12/28/16 at 17:46; Stop 12/28/16 at 17:47; Status DC Bacitracin (Bacitracin Oint Packet) 0.9 gm DAILY TOPICAL Last administered on 01/24/17t 09:00; Start 12/30/16 at 18:31 Date of Insertion: Dec 04, 2016 Line: Central Venous Catheter Side: Left Location: Internal, Jugular A/P Problem List: (1) Subarachnoid hemorrhage due to ruptured aneurysm ICD Code: I60.8 - Other nontraumatic subarachnoid hemorrhage (2) Subdural hematoma ICD Code: I62.00 - Nontraumatic subdural hemorrhage, unspecified (3) Intracranial aneurysm ICD Code: I67.1 - Cerebral aneurysm, nonruptured (4) Respiratory failure ICD Code: J96.90 - Respiratory failure, unspecified, unspecified whether with hypoxia or hypercapnia Status: Acute Assessment and Plan 1. Subdural Hematoma/duraplasty status post left frontotemporal parietal craniotomy 10/08. Status post left cranioplasty 12/27/16 status post decannulation- stable. 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 - 10/13 and 10/14 and 10/17) 10/19 left MCA territory vasospasm, status post successful verapamil treatment by IR with 20 mg verapamil - 10/17 CT brain - less hemisphere edema with herniation through left craniotomy site, improved. - Echocardiogram 10/14/16 revealed EF 40-45%. Septal hypokinesis. Moderate MR. Severe pulmonary hypertension with pulmonary artery pressures estimated 61 mmHg Limited Echo 11/06: LVEF 60-65%, Trivial mitral and tricuspid regurgitation, No vegetations noted. - On diltiazem's 90 mg by mouth every 6 hours . - neurologically stable and doing well, and continued PT and rehabilitation. - PT, OT, speech following. Patient had helmet. Respiratory failure, S/P tracheostomy. Resolved now and stable. - S/p Trach Dr. Sullivan/Dr. Collazo 11/01 #8 Beti - CT angiogram chest/neck revealed right centrilobular bleeding likely source right bronchial artery. Repeat CT chest 11/29no visualization of active bleeding.- Resolved - 12/01 - embolization of right bronchial artery by IR- no further bleeding from tracheostomy - Redo trach 11/[address] Sullivan.now trach has been removed. - continue neb treatment. - trach removed Lower extremity edema improved. Ultrasound Doppler reviewed and no DVT. Patient with high risk of bleeding and is not chemoprophylaxis at this time. Continue SCDs and teds for DVT prophylaxis. Ileus- Resolved Elevated transaminases Hyperammonemia protein caloric malnutrition-calorie count performed- binding stitcher recommendations noted; - tube feeding on hold- will leave the PEG in place and continue to monitor. -binding stitcher following. Right occlusive subclavian, axillary and bilateral superficial cephalic thrombus - limited Echo to evaluate vegetation-neg. 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 Cardizem PO currently and 90 mg every 6 hours (for digital ischemia, Raynaud's) - Continue bacitracin twice a day to affected areas - We'll need to be started on systemic anticoagulation at some point however with embolization for hemoptysis holding full anticoagulation at this time. - evaluated by vascular surgery and no interventions recommended at this time. sacral ulcer - ABD dressing with [employer]- staff nurse makes sure to keep area dry. Wound care also consulted. appreciate recommendations. - Turn position every 2 hours - Out of bed to chair activity DVT prophylaxis with SCD, no chemoprophylaxis secondary to risk for bleeding. clinically no change. continue current care. Course of hospitalization complications Acute hypoxic Respiratory failure secondary to mucous plugging- Resolved Possible healthcare associated pneumonia, Septic Shock- resolved. ARDS - resolved Noncardiogenic/neurogenic pulmonary edema- resolved. Massive Hemoptysis - resolved Aspiration pneumonitis - resolved Cerebral Salt Wasting/SIADH-resolved now hypernatremic - Creatinine currently within normal limits -> resolved. - Monitor urine output Septic and cardiogenic shock- resolved. LV dysfunction secondary to SAH - persistent, now resolved Elevated troponin- secondary to SAH, unlikely to be ACS. - resolved. Pulmonary hypertension s/p PEA arrest 11/28 after ETT dislodgement, hypoxic arrest Problem Qualifiers (1) Respiratory failure: Qualified Codes: J96.00 - Acute respiratory failure, unspecified whether with hypoxia or hypercapnia Kristina Juárez MD Jan 24, 2017 10:59
[2017-01-24 12:00] VITALS: BP 115/70; PULSE 82; RESP 18; O2SAT 98
[2017-01-24] MEDS: FERROUS SULFATE 325 MG (65 MG ELEMENTAL IRON) TAB PO SCH ×2 (13:19→17:56)
[2017-01-24 16:00] VITALS: BP 112/69; PULSE 81; RESP 18; TEMP 97.9; O2SAT 97
[2017-01-24 20:00] VITALS: BP 115/68; PULSE 76; RESP 18; TEMP 98.3; O2SAT 96
[2017-01-24] MEDS: MELATONIN 5 MG TAB PO SCH (21:39)
[2017-01-25] VITALS: BP 113/71; PULSE 77; RESP 18; TEMP 98.5; O2SAT 94
[2017-01-25] MEDS: DILTIAZEM HCL 90 MG TAB PO SCH ×4 (02:07→17:50)
[2017-01-25 04:00] VITALS: BP 112/71; PULSE 71; RESP 18; TEMP 97.3; O2SAT 95
[2017-01-25 08:00] VITALS: BP 123/76; PULSE 66; RESP 18; TEMP 97.6; O2SAT 98
[2017-01-25] MEDS: CHLORHEXIDINE 0.12% (ORAL KIT) 15 ML CUP MT SCH ×2 (08:00→20:00)
[2017-01-25] MEDS: FAMOTIDINE 20 MG TAB PO SCH ×2 (08:59→20:25)
[2017-01-25] MEDS: LACTOBACILLUS ACIDOPHILUS TAB PO SCH ×3 (08:59→17:50)
[2017-01-25] MEDS: ARTIFICIAL TEARS OPTH SOLN 15 ML BTL EACH EYE SCH ×3 (08:59→18:00)
[2017-01-25] MEDS: DOCUSATE SODIUM 100 MG CAP PO SCH ×2 (08:59→20:25)
[2017-01-25] MEDS: ASCORBIC ACID 500 MG TAB PO SCH ×2 (08:59→20:25)
[2017-01-25] MEDS: BACITRACIN TOP OINT 15 GM TUBE TOPICAL SCH ×2 (09:00→21:00)
[2017-01-25] MEDS: BACITRACIN OINT 0.9 GM PKT TOPICAL SCH (09:00)
[2017-01-25 11:03] LABS: AUTOMATED NEUTROPHIL # 3.3 TH/MM3 (1.8-7.7); BASOPHIL # 0.1 TH/MM3 (0-0.2); BASOPHIL % 1.2 % (0.0-2.0); EOSINOPHIL # 0.3 TH/MM3 (0-0.4); EOSINOPHIL % 4.8 % (0.0-4.0); HEMATOCRIT 32.4 % (39.0-51.0); HEMO FLAGS DIFF FINAL; LYMPH % 35.5 % (9.0-44.0); LYMPHOCYTE # 2.4 TH/MM3 (1.0-4.8); MEAN CELL VOLUME 91.7 FL (80.0-100.0); MEAN CORPUSCULAR HEMOGLOBIN 31.3 PG (27.0-34.0); MEAN CORPUSCULAR HGB CONC 34.2 % (32.0-36.0); MONO % 8.8 % (0.0-8.0); NEUT % 49.7 % (16.0-70.0); PLATELET COUNT 226 TH/MM3 (150-450); RED BLOOD COUNT 3.53 MIL/MM3 (4.50-5.90); RED CELL DISTRIBUTION WIDTH 14.9 % (11.6-17.2); WHITE BLOOD COUNT 6.6 TH/MM3 (4.0-11.0)
[2017-01-25 11:37] LABS: BICARBONATE 28.6 MEQ/L (21.0-32.0)
--- NOTE | 2017-01-25 11:58 | HHI.PR ---
Subjective Remarks in no acute distress. denies pain. no new complaints. Objective Vitals Vital Signs Date Time Temp Pulse Resp B/P (MAP) Pulse Ox O2 Delivery O2 Flow Rate FiO2 01/25/17 08:00 97.6 66 18 123/76 (92) 98 01/25/17 04:00 97.3 71 18 112/71 (85) 95 01/25/17 00:00 98.5 77 18 113/71 (85) 94 01/24/17 20:00 98.3 76 18 115/68 (84) 96 01/24/17 16:00 97.9 81 18 112/69 (83) 97 01/24/17 12:00 82 18 115/70 (85) 98 I/O 01/24/17 01/24/17 01/24/17 01/25/17 01/25/17 01/25/17 07:00 15:00 23:00 07:00 15:00 23:00 Output Total 600 ml 2000 ml Balance -600 ml -2000 ml Output Urine Total 600 ml 2000 ml Result Diagram: 01/25/17 1030 01/25/17 1030 Imaging Last Impressions Lower Extremity Ultrasound 12/29/16 0000 Signed Impressions: Service Date/Time: December 13:07 - CONCLUSION: No sonographic or Doppler findings of deep venous thrombosis. Joni Shelton MD Carotid Artery Ultrasound 12/27/16 0000 Signed Impressions: Service Date/Time: Tuesday, December 27, 2016 17:19 - CONCLUSION: Mild plaque at the carotid bulb regions bilaterally without a significant stenosis seen. Yosvany Alfaro MD Aorta w/Runoff CTA 12/27/16 0000 Signed Impressions: Service Date/Time: Wednesday, December 28, 2016 17:28 - CONCLUSION: Atherosclerotic calcification seen throughout the arterial system without an area of significant stenosis. The trifurcation vessels are only faintly opacified. Yosvany Alfaro MD Modified Barium Swallow 12/23/16 0000 Signed Impressions: Service Date/Time: Friday, December 23, 2016 09:11 - CONCLUSION: Negative for aspiration.. Remington Woodward MD FACR Chest X-Ray 12/04/16 [id number] Signed Impressions: Service Date/Time: Sunday, December 04, 2016 18:55 - CONCLUSION: 1. Placement of left central line tip in superior vena cava. No pneumothorax. Mild basilar airspace disease. Small right effusion. Gurwinder Root MD Upper Extremity Ultrasound 12/04/16 0000 Signed Impressions: Service Date/Time: Sunday, December 04, 2016 15:37 - CONCLUSION: 1. Positive for occlusive deep venous thrombosis in the right axillary and subclavian vein. Occlusive superficial thrombus in bilateral cephalic veins. Gurwinder Root MD Angiography 12/01/16 0000 Signed Impressions: Service Date/Time: November 14:02 - CONCLUSION: 1. Right side up on her hemorrhage with angiography of the right bronchial artery revealing no source of active hemorrhage. Empiric embolization was performed. Santos Crockett Jr., MD Chest CT 11/28/16 0000 Signed Impressions: Service Date/Time: Tuesday, November 29, 2016 05:13 - CONCLUSION: 1. Patchy alveolar disease characteristic of edema or pneumonia. 2. Severe emphysema 3. Gastrojejunostomy tube looped in the stomach Harvey Morejon MD Chest/Thorax CTA 11/26/16 Signed Impressions: Service Date/Time: Saturday, November 26, 2016 20:18 - CONCLUSION: 1. Extensive filling defects within the right central bronchial tree characteristic of endobronchial hemorrhage. 2. Consolidating airspace disease in the right upper lobe and right lower lobe characteristic of hemorrhage and post obstructive lung consolidation. 3. Right bronchial artery is identified extending to the central right bronchial region 4. Advanced COPD. Nasir Amanda MD Abdomen X-Ray 11/19/16 0600 Signed Impressions: Service Date/Time: Saturday, November 19, 2016 02:44 - CONCLUSION: Unchanged bowel gas pattern potentially relating to an ileus. Santos Crockett Jr., MD Transcranial Doppler Study Complete 10/20/16 06 Signed Impressions: Service Date/Time: October 07:54 - CONCLUSION: Slight interval elevation of flow velocity measurements and ratio on the left Yosvany Polk MD Liver Ultrasound 10/19/16 Signed Impressions: Service Date/Time: Wednesday, October 19, 2016 11:20 - CONCLUSION: 1. Sludge filled gallbladder with thickened wall. 2. Moderate size bilateral pleural effusions and mild upper abdominal ascites. Santos Vazquez MD Cerebral Arteriogram 10/19/16 Signed Impressions: Service Date/Time: Wednesday, October 19, 2016 12:47 - CONCLUSION: Uncomplicated cerebral arteriography with spasmolytic therapy as described in detail above. Yosvany Polk MD Head CT 10/17/16 0000 Signed Impressions: Service Date/Time: Monday, October 17, 2016 15:06 - CONCLUSION: Ventricles are slightly larger without ventriculostomy. Edema in the left hemisphere the brain herniating through the operative site. Remington Woodward MD FACR Infusion Non-thrombolysis 10/14/16 1103 Signed Impressions: Service Date/Time: Friday, October 14, 2016 10:21 - CONCLUSION: 1. Uncomplicated infusion for spasmolysis Harvey Morejon MD Neck CTA 10/07/16 0000 Signed Impressions: Service Date/Time: Friday, October 07, 2016 15:03 - CONCLUSION: 1. Mild carotid bulb atherosclerotic calcification bilaterally. However, no significant stenosis is present in either internal carotid artery. 2. Paranasal sinus mucoperiosteal thickening. 3. Please refer to brain CTA report for description of the intracranial findings. Yosvany Ramirez MD Head CTA 10/07/16 0000 Signed Impressions: Service Date/Time: Friday, October 07, 2016 15:03 - CONCLUSION: 1. 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 2. Large left subdural hematoma measuring 1.3 cm in depth with a significant, 1.6 cm left to right subfalcine shift. Joni Shelton MD Objective Remarks GENERAL: This is a well-nourished, well-developed patient, in no apparent distress. CARDIOVASCULAR: Regular rate and regular rhythm without murmurs, gallops, or rubs. RESPIRATORY: Clear to auscultation. Breath sounds equal bilaterally. No wheezes , rales, or rhonchi. GASTROINTESTINAL: Abdomen soft, non-tender, nondistended. Normal, active bowel sounds MUSCULOSKELETAL: Extremities without clubbing, cyanosis, or edema. NEURO: awake and alert. Procedures 10/13 Four-vessel cerebral angiography with verapamil treatment of vasospasm Status post left frontotemporal parietal craniectomy 10/08 for evacuation subdural hematoma/duraplasty. 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 parietal cranioplasty with replacement of skull flap by Dr Perry neurosurgery on 12/27/16 Medications and IVs Inpatient Medications Acetaminophen (Tylenol) 650 mg Q4H PRN PO TEMPERATURE > 101.5 F; Start at 11:30 Acetaminophen/ Hydrocodone Bitart (Murray 10-325 Mg) 2 tab Q4H PRN PO PAIN 6-10 WHEN TOLERATING PO Last administered on 12/30/16 14:24; Start 12/27/16 at 11: 30 Acetazolamide Sodium (Diamox Inj) 500 mg DAILY IV PUSH Last administered on 08:15; Start 10/25/16 at 09:00; Stop 10/28/16 at 03:25; Status DC Acetylcysteine (Mucomyst 20% Neb) 2 ml Q6HR NEB NEB Last administered on 04:24; Start 11/16/16 at 10:00; Stop 11/20/16 at 09:59; Status DC Albumin Human (Albumin 5% Inj) 25 gm ONCE ONCE IV Last administered on 11:34; Start 10/14/16 at 11:15; Stop 10/14/16 at 11:17; Status DC Albuterol Sulfate (Albuterol Neb) 2.5 mg Q2HR NEB PRN INH SOB/WHEEZING Last administered on 11/22/16 22:09; Start 10/19/16 at 09:45 Albuterol/ Ipratropium (Duoneb Neb) 1 ampule Q6HR NEB NEB Last administered on 12/08/16 01:13; Start 12/04/16 at 10:00; Stop 12/08/16 at 09:59; Status DC Artificial Tears (Tears Naturale Opth Soln) 1 drop TID EACH EYE Last administered on 01/23/17 09:49; Start 10/19/16 at 13:00 Ascorbic Acid (Vitamin C) 500 mg BID PO Last administered on 01/25/17 08:59; Start 12/22/16 at 09:00 Azithromycin 500 mg/Sodium Chloride 250 ml @ 250 mls/hr Q24H IV Last administered on 10/18/16 03:34; Start 10/15/16 at 04:00; Stop 10/18/16 at 07:20; Status DC Aztreonam 1000 mg/ Sodium Chloride 100 ml @ 200 mls/hr Q8H IV Last administered on 11/08/16 08:00; Start 11/06/16 at 16:00; Stop 11/08/16 at 12:55 ; Status DC Bacitracin (Baciguent Oint) 1 applic Q12HR TOPICAL Last administered on 21:40; Start 11/18/16 at 11:00 Bacitracin (Bacitracin Oint Packet) 0.9 gm DAILY TOPICAL Last administered on 01/24/17 09:00; Start 12/30/16 at 18:31 Bisacodyl (Dulcolax Supp) 10 mg DAILY PRN RECTAL CONSTIPATION; Start 12/27/16 at 11:30 Calcium Chloride 1 gm/Sodium Chloride 110 ml @ 110 mls/hr ONCE ONCE IV Last administered on 10/15/16 03:52; Start 10/15/16 at 03:15; Stop 10/15/16 at 04:14; Status DC Calcium Gluconate (Calcium Gluconate Inj) 1 gm UNSCH PRN IV SEE LABEL COMMENTS ; Start 12/27/16 at 11:30; Stop 12/27/16 at 11:31; Status DC Calcium Gluconate 1 gm/Sodium Chloride 110 ml @ 110 mls/hr UNSCH PRN IV SEE LABEL COMMENT; Start 12/27/16 at 12:00; Stop 01/10/17 at 16:51; Status DC Calcium Gluconate 2 gm/Sodium Chloride 120 ml @ 120 mls/hr ONCE ONCE IV Last administered on 10/15/16 09:26; Start 10/15/16 at 09:00; Stop 10/15/16 at 09:59; Status DC Calcium Gluconate 3 gm/Sodium Chloride 130 ml @ 120 mls/hr ONCE ONCE IV Last administered on 10/16/16 09:48; Start 10/16/16 at 10:00; Stop 10/16/16 at 11:04; Status DC Cefazolin Sodium 1000 mg/Sodium Chloride 100 ml @ 200 mls/hr NOW ONCE IV ; Start 11/12/16 at 15:30; Stop 11/12/16 at 15:59; Status DC Cefazolin Sodium/ Dextrose 50 ml @ 100 mls/hr Q8H IV Last administered on 08:00; Start 12/27/16 at 16:00; Stop 12/28/16 at 08:29; Status DC Cefepime HCl 2000 mg/Sodium Chloride 100 ml @ 200 mls/hr Q8H IV Last administered on 11/06/16 08:42; Start 11/02/16 at 17:00; Stop 11/06/16 at 15:48 ; Status DC Chlorhexidine Gluconate (Chlorhexidine 2% Cloth) 3 pack SENIOR RESEARCH ENGINEER PRN TOPICAL SEE LABEL COMMENTS; Start 12/26/16 at 15:00; Stop 12/29/16 at 14:59; Status DC Chlorhexidine Gluconate (Hibiclens 4% Top Soln) 1 applic HS TOP Last administered on 12/26/16 21:00; Start 12/22/16 at 21:00; Stop 12/26/16 at 21: 01; Status DC Chlorhexidine Gluconate (Peridex 0.12% Liq) 15 ml BID@08,20 MT Last administered on 01/20/17 08:00; Start 11/26/16 at 20:00 Cisatracurium Besylate (Nimbex Inj) 11 mg ONCE ONCE IV PUSH Last administered on 11/26/16 19:30; Start 11/26/16 at 18:45; Stop 11/26/16 at 18:50; Status DC Cisatracurium Besylate 100 mg/ Sodium Chloride 250 ml @ 8.34 mls/hr TITRATE PRN IV TOF 1/4 Last administered on 11/28/16 11:11; Start 11/28/16 at 11:00; Stop 11/28/16 at 14:11; Status DC Clonidine (Catapres) 0.1 mg Q8H PO Last administered on 01/10/17 01:22; Start 12/04/16 at 10:00; Stop 01/10/17 at 16:51; Status DC Collagenase (Santyl Oint) 1 applic DAILY TOPICAL Last administered on 09:03; Start 11/30/16 at 12:00; Stop 01/17/17 at 08:46; Status DC Dextrose (D50w (Vial) Inj) 50 ml UNSCH PRN IV PUSH HYPOGLYCEMIA-SEE COMMENTS; Start 11/30/16 at 12:15; Stop 12/02/16 at 19:38; Status DC Diltiazem HCl (Cardizem) 90 mg Q6HR PO Last administered on 01/25/17 06:03; Start 11/02/16 at 12:00 Diltiazem HCl 125 mg/Sodium Chloride 125 ml @ 5 mls/hr TITRATE PRN IV Tachycardia Last administered on 10/27/16 08:13; Start 10/22/16 at 10:30; Stop 10/28/16 at 18:49; Status DC Docusate Sodium (Colace Liq) 100 mg Q12HR PO Last administered on 10/30/16 07: 55; Start 10/19/16 at 21:00; Stop 10/31/16 at 10:47; Status DC Docusate Sodium (Colace) 100 mg BID PO Last administered on 01/25/17 08:59; Start 12/27/16 at 21:00 Enalaprilat (Vasotec Inj) 1.25 mg Q6H PRN IV PUSH SBP>160, DBP>90; Start 12/04 at 09:15 Epinephrine HCl 2 mg/Dextrose 252 ml @ 22.68 mls/ hr TITRATE PRN IV Blood Pressure Management; Start 10/15/16 at 15:00; Stop 10/15/16 at 15:32; Status DC Epinephrine HCl 8 mg/Dextrose 250 ml @ 5.62 mls/hr TITRATE PRN IV Blood Pressure Management Last administered on 10/20/16 15:14; Start 10/17/16 at 11:15 ; Stop 10/29/16 at 11:49; Status DC Epoprostenol Sodium 75 ml/ Sodium Chloride 100 ml @ 8 mls/hr Q8H NEB Last administered on 10/21/16 15:25; Start 10/15/16 at 03:00; Stop 10/21/16 at 16:05; Status DC Famotidine (Pepcid) 20 mg BID PO Last administered on 01/25/17 08:59; Start 12/16/16 at 21:00 Fat Emulsion Intravenous 250 ml @ 10 mls/hr Q24H IV-CENTRAL Last administered on 10/29/16 19:58; Start 10/20/16 at 20:00; Stop 10/31/16 at 10:47; Status DC Fentanyl Citrate 250 ml @ 5 mls/hr TITRATE PRN IV SEDATION Last administered on 11/29/16 06:30; Start 11/26/16 at 18:45; Stop 12/12/16 at 16:47; Status DC Fentanyl Citrate (fentaNYL INJ) 100 mcg Q1H PRN IV PUSH any pain; Start at 18:45; Stop 11/29/16 at 14:38; Status DC Ferrous Sulfate (Ferrous Sulfate) 325 mg BID@12,17 PO Last administered on 17:56; Start 12/22/16 at 12:00 Fluconazole (Diflucan) 100 mg DAILY PO Last administered on 11/16/16 09:23; Start 11/06/16 at 16:00; Stop 11/16/16 at 13:20; Status DC Fludrocortisone Acetate (Florinef) 0.2 mg BID PO Last administered on 10/16/16 08:12; Start 10/15/16 at 21:00; Stop 10/16/16 at 09:12; Status DC Fosphenytoin Sodium (Cerebyx Inj) 100 mgpe Q8HR IV Last administered on 06:28; Start 10/15/16 at 10:00; Stop 10/25/16 at 14:25; Status DC Fosphenytoin Sodium 1000 mgpe/ Sodium Chloride 70 ml @ 280 mls/hr ONCE ONCE IV Last administered on 10/15/16 03:32; Start 10/15/16 at 02:30; Stop 10/15/16 at 02:44; Status DC Furosemide (Lasix Liq) 20 mg DAILY NG Last administered on 12/01/16 08:38; Start 11/09/16 at 10:30; Stop 12/02/16 at 09:49; Status DC Furosemide (Lasix Inj) 40 mg DAILY IV PUSH Last administered on 11/09/16 09:11 ; Start 10/28/16 at 09:00; Stop 11/09/16 at 10:18; Status DC Furosemide 100 mg/ Sodium Chloride 100 ml @ 5 mls/hr CONTINUOUS IV Last administered on 10/27/16 08:12; Start 10/24/16 at 12:00; Stop 10/27/16 at 08:59 ; Status DC Glucagon (Glucagon Inj) 1 mg UNSCH PRN OTHER HYPOGLYCEMIA-SEE COMMENTS; Start 11/30/16 at 12:15; Stop 12/02/16 at 19:38; Status DC Haloperidol Lactate (Haldol Inj) 5 mg Q4H PRN IV PUSH agitation; Start at 15:00; Stop 11/29/16 at 14:45; Status DC Heparin Sodium (Porcine) (Heparin Inj) 5,000 units Q8HR SQ Last administered on 11/13/16 21:20; Start 10/14/16 at 22:00; Status Future Hold Hydralazine HCl (Apresoline Inj) 10 mg Q1H PRN IV PUSH SBP>160, DBP>90 Last administered on 12/04/16 12:39; Start 12/04/16 at 09:15; Stop 12/16/16 at 15: 01; Status DC Hydrocortisone Sodium Succinate (SoluCORTEF INJ) 25 mg Q12H IV PUSH Last administered on 10/27/16 04:14; Start 10/25/16 at 16:00; Stop 10/27/16 at 08:59 ; Status DC Hydromorphone HCl (Dilaudid Pf Inj) 0.5 mg Q4H PRN IV PUSH pain 7-10 or not taking po; Start 11/29/16 at 12:30; Stop 11/29/16 at 14:38; Status DC Insulin Aspart (NovoLOG SUPPLEMENTAL SCALE) 1 Q12H SQ Last administered on 11/04 00:42; Start 11/03/16 at 12:00; Stop 11/12/16 at 08:40; Status DC Insulin Detemir (Levemir Inj) 8 units Q12HR SQ Last administered on 10/29/16 08:28; Start 10/28/16 at 21:00; Stop 11/01/16 at 14:52; Status DC Insulin Human Regular (NovoLIN R SUPPLEMENTAL SCALE) 1 Q6HR SQ ; Start at 12:00; Stop 12/02/16 at 19:38; Status DC Insulin Human Regular (NovoLIN R INJ) See Protocol Table ... SENIOR RESEARCH ENGINEER PRN SQ SEE PROTOCOL TABLE; Start 12/26/16 at 15:00; Stop 12/29/16 at 14:59; Status DC Isoproterenol HCl 2 mg/Dextrose 260 ml @ 23.4 mls/hr TITRATE PRN IV Hypotension Last administered on 10/14/16 21:26; Start 10/14/16 at 21:00; Stop at 16:24; Status DC IV Flush (NS Flush) 2 ml BID IVF Last administered on 01/13/17 08:44; Start 12/27/16 at 21:00; Stop 01/13/17 at 12:47; Status DC Labetalol HCl (Trandate Inj) 10 mg Q1H PRN IV PUSH SBP>160, DBP>90, HR>65; Start 12/04/16 at 09:15; Stop 12/16/16 at 15:01; Status DC Lactated Ringer's 1,000 ml @ 30 mls/hr Q24H PRN IV SEE LABEL COMMENTS; Start 12/26/16 at 15:00; Stop 12/27/16 at 11:25; Status DC Lactobacillus Acidophilus (Lactinex) 1 tab TID PO Last administered on 08:59; Start 12/14/16 at 18:00 Lactulose (Lactulose Liq) 30 ml QID OG-TUBE Last administered on 11/11/16 12: 28; Start 11/01/16 at 09:00; Stop 11/12/16 at 08:36; Status DC Lansoprazole (Prevacid Odt) 30 mg ONCE ONCE NG Last administered on 10/19/16 12:11; Start 10/19/16 at 12:00; Stop 10/19/16 at 12:02; Status DC Levetriacetam (Keppra Liq) 500 mg Q12HR PEG Last administered on 01/13/17 08: 44; Start 12/27/16 at 21:00; Stop 01/13/17 at 12:47; Status DC Levetriacetam 500 mg/Sodium Chloride 105 ml @ 400 mls/hr Q12H IV Last administered on 10/31/16 05:11; Start 10/08/16 at 06:00; Stop 10/31/16 at 10:47 ; Status DC Levofloxacin (Levaquin) 750 mg DAILY PO Last administered on 11/25/16 09:19; Start 11/18/16 at 12:00; Stop 11/25/16 at 11:59; Status DC Loperamide HCl (Imodium Liq) 2 mg UNSCH PRN PO DIARRHEA; Start 12/14/16 at 10: 45 Lorazepam (Ativan Inj) 2 mg ONCE ONCE IV PUSH Last administered on 10/15/16 03 :33; Start 10/15/16 at 02:30; Stop 10/15/16 at 02:37; Status DC Magnesium Oxide (Mag-Ox) 800 mg UNSCH PRN PO For Magnesium 1.2 - 1.6 mg/dL; Start 10/16/16 at 09:15; Stop 11/25/16 at 09:51; Status DC Magnesium Sulfate 2 gm/Sodium Chloride 100 ml @ 50 mls/hr UNSCH PRN IV For Magnesium 1.2 - 1.6 mg/dL; Start 10/16/16 at 09:15; Stop 11/25/16 at 09:51; Status DC Magnesium Sulfate 4 gm/Sodium Chloride 108 ml @ 108 mls/hr UNSCH PRN IV MAGNESIUM LESS THAN 2; Start 12/27/16 at 11:30; Stop 01/10/17 at 16:51; Status DC Magnesium Sulfate/ Dextrose 100 ml @ 100 mls/hr ONCE ONCE IV Last administered on 12/02/16 11:11; Start 12/02/16 at 10:00; Stop 12/02/16 at 10 :59; Status DC Mannitol (Mannitol Inj) 50 gm ONCE ONCE IV Last administered on 10/13/16 21: 00; Start 10/07/16 at 15:30; Stop 10/07/16 at 15:31; Status DC Melatonin (Melatonin) 5 mg HS PO Last administered on 01/24/17 21:39; Start 11/01/16 at 21:00 Methylnaltrexone [place] (Relistor Inj) 12 mg ONCE ONCE SQ Last administered on 10/20/16 14:17; Start 10/20/16 at 09:15; Stop 10/20/16 at 09:39; Status DC Metoclopramide HCl (Reglan Inj) 5 mg Q8H IV PUSH Last administered on 02:28; Start 12/02/16 at 18:00; Stop 12/12/16 at 16:47; Status DC Metoprolol Tartrate (Lopressor) 25 mg SENIOR RESEARCH ENGINEER PRN PO SEE LABEL COMMENTS; Start 12/26/16 at 15:00; Stop 12/29/16 at 14:59; Status DC Metronidazole 100 ml @ 100 mls/hr Q6H IV Last administered on 11/04/16 09:26 ; Start 11/02/16 at 16:00; Stop 11/04/16 at 11:21; Status DC Midazolam HCl (Versed Inj) 2 mg Q15M PRN IV PUSH SEDATION; Start 11/27/16 at 01:45; Stop 11/29/16 at 14:45; Status DC Milrinone Lactate 20 mg/Sodium Chloride 100 ml @ 9.79 mls/hr [id number] IV Last administered on 10/30/16 03:35; Start 10/22/16 at 10:23; Stop 11/01/16 at 07:51 ; Status DC Mineral Oil (Mineral Oil Liq) 30 ml ONCE ONCE PO Last administered on 15:32; Start 10/20/16 at 14:00; Stop 10/20/16 at 14:01; Status DC Miscellaneous Information ALL NURSING DEPARTME... UNSCH PRN .XX SEE LABEL COMMENTS; Start 12/27/16 at 11:45; Stop 12/28/16 at 11:44; Status DC Morphine Sulfate (Morphine Inj) 4 mg Q2H PRN IV PUSH PAIN SCALE 7 TO 10 Last administered on 12/28/16 18:00; Start 12/27/16 at 11:30; Stop 01/13/17 at 12: 43; Status DC Multivitamins 10 ml/Folic Acid 1 mg/Amino Acids/ Electrolytes/ Dextrose 2,010.2 ml @ 30 mls/hr Q24H IV-CENTRAL Last administered on 10/28/16 20:01; Start 10/20/16 at 20:00; Stop 10/31/16 at 10:47; Status DC Nicardipine HCl 25 mg/Sodium Chloride 260 ml @ 52 mls/hr Q5H PRN IV Blood pressure management; Start 10/07/16 at 15:40; Stop 10/14/16 at 21:02; Status DC Nimodipine (Nimotop) 60 mg Q4HR PO Last administered on 11/02/16 20:23; Start 10/13/16 at 00:00; Stop 11/02/16 at 23:59; Status DC Nitroglycerin (Nitroglycerin 2% Oint) 2 inch Q6H PRN TOPICAL SBP>160, DBP>90; Start 12/04/16 at 09:15 Norepinephrine Bitartrate 16 mg/ Sodium Chloride 250 ml @ 1.87 mls/hr TITRATE PRN IV Blood pressure management Last administered on 10/20/16 01:07; Start 10/17 at 10:15; Stop 10/31/16 at 10:47; Status DC Norepinephrine Bitartrate 4 mg/ Sodium Chloride 250 ml @ 7.5 mls/hr TITRATE PRN IV Blood pressure management; Start 10/15/16 at 15:00; Stop 10/15/16 at 15:56 ; Status DC Ondansetron HCl (Zofran Inj) 4 mg Q6H PRN IV PUSH NAUSEA OR VOMITING; Start at 11:30 Oxycodone HCl (Roxicodone Intensol Liq) 10 mg Q4H PRN PO PAIN SCALE 1 TO 6; Start 11/24/16 at 11:30; Stop 11/29/16 at 14:38; Status DC Pantoprazole Sodium (Protonix Inj) 40 mg DAILY IVP Last administered on 08:44; Start 12/28/16 at 09:00; Stop 01/13/17 at 12:43; Status DC Pantoprazole Sodium (Protonix) 40 mg DAILY PO Last administered on 01/13/17 08 :44; Start 12/28/16 at 09:00; Stop 01/13/17 at 12:47; Status DC Pharmacy Profile Note 0 ml @ 0 mls/hr UNSCH OTHER ; Start 11/02/16 at 15:30; Stop 11/06/16 at 15:48; Status DC Phenylephrine HCl 40 mg/Dextrose 500 ml @ 30 mls/hr TITRATE PRN IV Blood pressure management Last administered on 10/15/16 15:02; Start 10/14/16 at 18:30 ; Stop 10/15/16 at 15:36; Status DC Phenylephrine HCl 160 mg/Dextrose 500 ml @ 7.5 mls/hr TITRATE PRN IV Blood Pressure Management Last administered on 10/23/16 14:21; Start 10/17/16 at 10:15 ; Stop 10/29/16 at 11:49; Status DC Phenytoin (Dilantin Liq) 100 mg Q8HR PO Last administered on 11/06/16 06:34; Start 11/01/16 at 14:00; Stop 11/06/16 at 12:28; Status DC Phenytoin Sodium (Dilantin Inj) 100 mg Q8HR IV Last administered on 11/01/16 05:30; Start 10/25/16 at 22:00; Stop 11/01/16 at 07:52; Status DC Piperacillin Sod/ Tazobactam Sod 100 ml @ 200 mls/hr Q6H IV Last administered on 10/23/16 05:39; Start 10/19/16 at 12:00; Stop 10/23/16 at 09:43; Status DC Polyethylene Glycol (Miralax) 17 gm BID OG-TUBE Last administered on 10/29/16 20:15; Start 10/19/16 at 21:00; Stop 10/31/16 at 10:47; Status DC Potassium Chloride/Sodium Chloride 1,000 ml @ 100 mls/hr Q10H IV Last administered on 01/12/17 10:00; Start 12/27/16 at 11:17; Stop 01/12/17 at 11 :04; Status DC Potassium Phosphate (K-Phos) 2,000 mg UNSCH PRN PO/TUBE SEE LABEL COMMENTS; Start 10/16/16 at 09:15; Stop 11/25/16 at 09:51; Status DC Potassium Phosphate 30 mmol/ Sodium Chloride 260 ml @ 43.333 mls/ hr ONCE ONCE IV ; Start 10/20/16 at 18:00; Stop 10/20/16 at 23:59; Status DC Potassium Bicarb/ Potassium Chloride (K-Lyte Cl Eff) 50 meq NOW ONCE PO Last administered on 11/15/16 10:44; Start 11/15/16 at 08:30; Stop 11/15/16 at 08:31 ; Status DC Potassium Chloride 100 ml @ 50 mls/hr UNSCH PRN IV POTASSIUM LESS THAN 4; Start 12/27/16 at 11:30; Stop 01/10/17 at 16:51; Status DC Potassium Chloride (KCl Powder) 20 meq ONCE ONCE PO ; Start 12/02/16 at 10:00 ; Stop 12/02/16 at 10:02; Status DC Povidone Iodine (Betadine 10% Oint) 1 applic DAILY TOPICAL Last administered on 12/23/16 09:00; Start 11/24/16 at 09:00; Stop 12/24/16 at 12:51; Status DC Povidone Iodine (Betadine 5% Antisepsis Kit) 1 applic SENIOR RESEARCH ENGINEER PRN EACH NARE SEE LABEL COMMENTS; Start 12/26/16 at 15:00; Stop 12/29/16 at 14:59; Status DC Prednisone (Deltasone) 20 mg BID PO Last administered on 11/09/16 21:08; Start 11/08/16 at 13:00; Stop 11/09/16 at 21:01; Status DC Propofol 100 ml @ 1.668 mls/ hr TITRATE PRN IV SEDATION Last administered on 11/26/16 21:29; Start 11/26/16 at 18:45; Stop 12/12/16 at 16:47; Status DC Protein (Beneprotein Powder) 1 pack TID G-TUBE Last administered on 01/10/17 18:00; Start 11/19/16 at 09:00; Stop 01/13/17 at 12:47; Status DC Racepinephrine (Racepinephrine 2.25% Neb) 0.5 ml Q4HR NEB PRN NEB hemoptysis/ stridor; Start 12/03/16 at 15:00; Stop 01/13/17 at 12:47; Status DC Sennosides (Senna Liq) 8.8 mg BID PO Last administered on 10/29/16 20:15; Start 10/19/16 at 21:00; Stop 10/31/16 at 10:47; Status DC Sodium Chloride 500 ml @ 30 mls/hr [id number] PRN IV SEE LABEL COMMENTS; Start at 15:00; Stop 12/27/16 at 11:25; Status DC Sodium Chloride (NS Flush) UNSCH PRN IV FLUSH SEE PROTOCOL; Start 12/04/16 at 18:00; Stop 01/13/17 at 12:47; Status DC Sodium Chloride (Sodium Chloride) 3 gm TID PO Last administered on 11/04/16 10 :18; Start 10/15/16 at 13:15; Stop 11/04/16 at 11:21; Status DC Sodium Chloride 240 meq/Syringe / Bag 60 ml @ 120 mls/hr ONCE ONCE IV Last administered on 10/16/16 09:48; Start 10/16/16 at 10:00; Stop 10/16/16 at 10:29; Status DC Sodium Phosphate 30 mmol/Sodium Chloride 250 ml @ 42 mls/hr UNSCH PRN IV For Phosphorus < 2.5 mg/dL Last administered on 10/22/16 06:46; Start 10/16/16 at 09: 15; Stop 11/25/16 at 09:51; Status DC Terbutaline Sulfate (Brethine Inj) 1 mg UNSCH PRN SQ FOR EXTRAVASATION PROTOCOL ; Start 10/15/16 at 15:45; Stop 11/01/16 at 07:51; Status DC Vancomycin HCl 1000 mg/Sodium Chloride 250 ml @ 250 mls/hr ONCE ONCE IV Last administered on 10/15/16 07:02; Start 10/15/16 at 05:00; Stop 10/15/16 at 05:59; Status DC Vancomycin HCl 1250 mg/Sodium Chloride 262.5 ml @ 250 mls/hr Q12H IV Last administered on 11/06/16 06:34; Start 11/05/16 at 18:00; Stop 11/06/16 at 15:48 ; Status DC Vancomycin HCl 1500 mg/Sodium Chloride 515 ml @ 257.5 mls/ hr Q12H IV Last administered on 10/23/16 08:32; Start 10/23/16 at 09:00; Stop 10/23/16 at 09:43 ; Status DC Vasopressin 40 units/Dextrose 100 ml @ 4.5 mls/hr [id number] IV Last administered on 10/25/16 02:30; Start 10/14/16 at 11:30; Stop 10/31/16 at 10:47 ; Status DC Water (Free Water) VOLUME OF WATER: 200 ML Q6HR G-TUBE Last administered on 18:00; Start 11/22/16 at 00:00; Stop 11/26/16 at 18:43; Status DC Date of Insertion: Dec 04, 2016 Line: Central Venous Catheter Side: Left Location: Internal, Jugular A/P Problem List: (1) Subarachnoid hemorrhage due to ruptured aneurysm ICD Code: I60.8 - Other nontraumatic subarachnoid hemorrhage (2) Subdural hematoma ICD Code: I62.00 - Nontraumatic subdural hemorrhage, unspecified (3) Intracranial aneurysm ICD Code: I67.1 - Cerebral aneurysm, nonruptured (4) Respiratory failure ICD Code: J96.90 - Respiratory failure, unspecified, unspecified whether with hypoxia or hypercapnia Status: Acute Assessment and Plan 1. Subdural Hematoma/duraplasty status post left frontotemporal parietal craniotomy 10/08. Status post left cranioplasty 12/27/16 status post decannulation- stable. 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 - 10/13 and 10/14 and 10/17) 10/19 left MCA territory vasospasm, status post successful verapamil treatment by IR with 20 mg verapamil - 10/17 CT brain - less hemisphere edema with herniation through left craniotomy site, improved. - Echocardiogram 10/14/16 revealed EF 40-45%. Septal hypokinesis. Moderate MR. Severe pulmonary hypertension with pulmonary artery pressures estimated 61 mmHg Limited Echo 11/06: LVEF 60-65%, Trivial mitral and tricuspid regurgitation, No vegetations noted. - On diltiazem's 90 mg by mouth every 6 hours . - neurologically stable and doing well, and continued PT and rehabilitation. - PT, OT, speech following. Patient had helmet. Respiratory failure, S/P tracheostomy. Resolved now and stable. - S/p Trach Dr. Sullivan/Dr. Collazo 11/01 #8 [place] - CT angiogram chest/neck revealed right centrilobular bleeding likely source right bronchial artery. Repeat CT chest 11/29no visualization of active bleeding.- Resolved - 12/01 - embolization of right bronchial artery by IR- no further bleeding from tracheostomy - Redo trach 11/[address] Sullivan.now trach has been removed. - continue neb treatment. - trach removed Lower extremity edema improved. Ultrasound Doppler reviewed and no DVT. Patient with high risk of bleeding and is not chemoprophylaxis at this time. Continue SCDs and teds for DVT prophylaxis. Ileus- Resolved Elevated transaminases Hyperammonemia protein caloric malnutrition-calorie count performed- accounts receivable executive recommendations noted; - tube feeding on hold- will leave the PEG in place and continue to monitor. -accounts receivable executive following. Right occlusive subclavian, axillary and bilateral superficial cephalic thrombus - limited Echo to evaluate vegetation-neg. 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 Cardizem PO currently and 90 mg every 6 hours (for digital ischemia, Raynaud's) - Continue bacitracin twice a day to affected areas - We'll need to be started on systemic anticoagulation at some point however with embolization for hemoptysis holding full anticoagulation at this time. - evaluated by vascular surgery and no interventions recommended at this time. sacral ulcer - ABD dressing with [employer]-. Wound care also consulted. appreciate recommendations. - Turn position every 2 hours - Out of bed to chair activity DVT prophylaxis with SCD, no chemoprophylaxis secondary to risk for bleeding. clinically no change. continue current treatment. Course of hospitalization complications Acute hypoxic Respiratory failure secondary to mucous plugging- Resolved Possible healthcare associated pneumonia, Septic Shock- resolved. ARDS - resolved Noncardiogenic/neurogenic pulmonary edema- resolved. Massive Hemoptysis - resolved Aspiration pneumonitis - resolved Cerebral Salt Wasting/SIADH-resolved now hypernatremic - Creatinine currently within normal limits -> resolved. - Monitor urine output Septic and cardiogenic shock- resolved. LV dysfunction secondary to SAH - persistent, now resolved Elevated troponin- secondary to SAH, unlikely to be ACS. - resolved. Pulmonary hypertension s/p PEA arrest 11/28 after ETT dislodgement, hypoxic arrest Problem Qualifiers (1) Respiratory failure: Qualified Codes: J96.00 - Acute respiratory failure, unspecified whether with hypoxia or hypercapnia Kristina Juárez MD Jan 25, 2017 11:58
[2017-01-25 12:00] VITALS: BP 114/73; PULSE 79; RESP 18; TEMP 97.3; O2SAT 98
[2017-01-25] MEDS: FERROUS SULFATE 325 MG (65 MG ELEMENTAL IRON) TAB PO SCH ×2 (12:49→17:50)
[2017-01-25 16:00] VITALS: BP 106/68; PULSE 79; RESP 18; TEMP 98; O2SAT 98
[2017-01-25 20:00] VITALS: BP 119/73; PULSE 75; RESP 20; TEMP 98.1; O2SAT 97
[2017-01-25] MEDS: MELATONIN 5 MG TAB PO SCH (20:25)
[2017-01-26] VITALS: BP 116/71; PULSE 72; RESP 18; TEMP 98.9; O2SAT 96
[2017-01-26] MEDS: DILTIAZEM HCL 90 MG TAB PO SCH ×4 (00:58→17:05)
[2017-01-26 04:00] VITALS: BP 116/69; PULSE 68; RESP 18; TEMP 99; O2SAT 95
[2017-01-26] MEDS: LACTOBACILLUS ACIDOPHILUS TAB PO SCH ×3 (07:40→17:05)
[2017-01-26] MEDS: DOCUSATE SODIUM 100 MG CAP PO SCH ×2 (07:40→21:48)
[2017-01-26] MEDS: ASCORBIC ACID 500 MG TAB PO SCH ×2 (07:40→21:48)
[2017-01-26] MEDS: FAMOTIDINE 20 MG TAB PO SCH ×2 (07:41→21:48)
[2017-01-26] MEDS: CHLORHEXIDINE 0.12% (ORAL KIT) 15 ML CUP MT SCH ×2 (08:00→20:00)
[2017-01-26 08:32] VITALS: BP 132/71; PULSE 72; RESP 20; TEMP 98.7; O2SAT 97
[2017-01-26] MEDS: ARTIFICIAL TEARS OPTH SOLN 15 ML BTL EACH EYE SCH ×3 (09:00→18:00)
[2017-01-26] MEDS: BACITRACIN TOP OINT 15 GM TUBE TOPICAL SCH ×2 (09:00→21:00)
[2017-01-26] MEDS: BACITRACIN OINT 0.9 GM PKT TOPICAL SCH (09:00)
--- NOTE | 2017-01-26 11:05 | HHI.PR ---
Subjective Remarks Pt has no complaints. denies any CP/SOB/N/V Objective Vitals Vital Signs Date Time Temp Pulse Resp B/P (MAP) Pulse Ox O2 Delivery O2 Flow Rate FiO2 01/26/17 08:32 98.7 72 20 132/71 (91) 97 01/26/17 04:00 99.0 68 18 116/69 (85) 95 01/26/17 00:00 98.9 72 18 116/71 (86) 96 01/25/17 20:00 98.1 75 20 119/73 (88) 97 01/25/17 16:00 98.0 79 18 106/68 (81) 98 01/25/17 12:00 97.3 79 18 114/73 (87) 98 I/O 01/25/17 01/25/17 01/25/17 01/26/17 01/26/17 01/26/17 07:00 15:00 23:00 07:00 15:00 23:00 Output Total 2000 ml 2300 ml Balance -2000 ml -2300 ml Output Urine Total 2000 ml 2300 ml Result Diagram: 01/25/17 1030 01/25/17 1030 Imaging Last Impressions Lower Extremity Ultrasound 12/29/16 0000 Signed Impressions: Service Date/Time: December 13:07 - CONCLUSION: No sonographic or Doppler findings of deep venous thrombosis. Joni Shelton MD Carotid Artery Ultrasound 12/27/16 0000 Signed Impressions: Service Date/Time: Tuesday, December 27, 2016 17:19 - CONCLUSION: Mild plaque at the carotid bulb regions bilaterally without a significant stenosis seen. Yosvany Alfaro MD Aorta w/Runoff CTA 12/27/16 0000 Signed Impressions: Service Date/Time: Wednesday, December 28, 2016 17:28 - CONCLUSION: Atherosclerotic calcification seen throughout the arterial system without an area of significant stenosis. The trifurcation vessels are only faintly opacified. Yosvany Alfaro MD Modified Barium Swallow 12/23/16 0000 Signed Impressions: Service Date/Time: Friday, December 23, 2016 09:11 - CONCLUSION: Negative for aspiration.. Remington Woodward MD FACR Chest X-Ray 12/04/16 2675 Signed Impressions: Service Date/Time: Sunday, December 04, 2016 18:55 - CONCLUSION: 1. Placement of left central line tip in superior vena cava. No pneumothorax. Mild basilar airspace disease. Small right effusion. Gurwinder Root MD Upper Extremity Ultrasound 12/04/16 Signed Impressions: Service Date/Time: Sunday, December 04, 2016 15:37 - CONCLUSION: 1. Positive for occlusive deep venous thrombosis in the right axillary and subclavian vein. Occlusive superficial thrombus in bilateral cephalic veins. Gurwinder Root MD Angiography 12/01/16 Signed Impressions: Service Date/Time: November 14:02 - CONCLUSION: 1. Right side up on her hemorrhage with angiography of the right bronchial artery revealing no source of active hemorrhage. Empiric embolization was performed. Santos Crockett Jr., MD Chest CT 11/28/16 Signed Impressions: Service Date/Time: Tuesday, November 29, 2016 05:13 - CONCLUSION: 1. Patchy alveolar disease characteristic of edema or pneumonia. 2. Severe emphysema 3. Gastrojejunostomy tube looped in the stomach Harvey Morejon MD Chest/Thorax CTA 11/26/16 Signed Impressions: Service Date/Time: Saturday, November 26, 2016 20:18 - CONCLUSION: 1. Extensive filling defects within the right central bronchial tree characteristic of endobronchial hemorrhage. 2. Consolidating airspace disease in the right upper lobe and right lower lobe characteristic of hemorrhage and post obstructive lung consolidation. 3. Right bronchial artery is identified extending to the central right bronchial region 4. Advanced COPD. Nasir Amanda MD Abdomen X-Ray 11/19/16599 Signed Impressions: Service Date/Time: Saturday, November 19, 2016 02:44 - CONCLUSION: Unchanged bowel gas pattern potentially relating to an ileus. Santos Crockett Jr., MD Transcranial Doppler Study Complete 10/20/16599 Signed Impressions: Service Date/Time: October 07:54 - CONCLUSION: Slight interval elevation of flow velocity measurements and ratio on the left Yosvany Polk MD Liver Ultrasound 10/19/16 Signed Impressions: Service Date/Time: Wednesday, October 19, 2016 11:20 - CONCLUSION: 1. Sludge filled gallbladder with thickened wall. 2. Moderate size bilateral pleural effusions and mild upper abdominal ascites. Santos Vazquez MD Cerebral Arteriogram 9/6/17 0000 Signed Impressions: Service Date/Time: Wednesday, October 19, 2016 12:47 - CONCLUSION: Uncomplicated cerebral arteriography with spasmolytic therapy as described in detail above. Yosvany Polk MD Head CT 10/17/16 0000 Signed Impressions: Service Date/Time: Monday, October 17, 2016 15:06 - CONCLUSION: Ventricles are slightly larger without ventriculostomy. Edema in the left hemisphere the brain herniating through the operative site. Remington Woodward MD FACR Infusion Non-thrombolysis 10/14/16 1103 Signed Impressions: Service Date/Time: Friday, October 14, 2016 10:21 - CONCLUSION: 1. Uncomplicated infusion for spasmolysis Harvey Morejon MD Neck CTA 10/07/16 0000 Signed Impressions: Service Date/Time: Friday, October 07, 2016 15:03 - CONCLUSION: 1. Mild carotid bulb atherosclerotic calcification bilaterally. However, no significant stenosis is present in either internal carotid artery. 2. Paranasal sinus mucoperiosteal thickening. 3. Please refer to brain CTA report for description of the intracranial findings. Yosvany Ramirez MD Head CTA 10/07/16 0000 Signed Impressions: Service Date/Time: Friday, October 07, 2016 15:03 - CONCLUSION: 1. 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 2. Large left subdural hematoma measuring 1.3 cm in depth with a significant, 1.6 cm left to right subfalcine shift. Joni Shelton MD Objective Remarks GENERAL: laying in bed CARDIOVASCULAR: Regular rate and regular rhythm without murmurs RESPIRATORY: Clear to auscultation. Breath sounds equal bilaterally. No wheezes GASTROINTESTINAL: Abdomen soft, non-tender, nondistended. Normal, active bowel sounds MUSCULOSKELETAL: Extremities without edema. moves extremities. NEURO: awake and alert. Procedures 10/13 Four-vessel cerebral angiography with verapamil treatment of vasospasm Status post left frontotemporal parietal craniectomy 10/08 for evacuation subdural hematoma/duraplasty. 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 parietal cranioplasty with replacement of skull flap by Dr Perry neurosurgery on 12/27/16 Date of Insertion: Dec 04, 2016 Line: Central Venous Catheter Side: Left Location: Internal, Jugular A/P Problem List: (1) Subarachnoid hemorrhage due to ruptured aneurysm ICD Code: I60.8 - Other nontraumatic subarachnoid hemorrhage (2) Subdural hematoma ICD Code: I62.00 - Nontraumatic subdural hemorrhage, unspecified (3) Intracranial aneurysm ICD Code: I67.1 - Cerebral aneurysm, nonruptured (4) Respiratory failure ICD Code: J96.90 - Respiratory failure, unspecified, unspecified whether with hypoxia or hypercapnia Status: Acute Assessment and Plan Update in medical management 01/26/17: No new changes to management at this time except for a consult to GI for PEG tube removal. CM assisting w d/c planning. 1. Subdural Hematoma/duraplasty status post left frontotemporal parietal craniotomy 10/08. Status post left cranioplasty 12/27/16 status post decannulation- stable. 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 - 10/13 and 10/14 and 10/17) 10/19 left MCA territory vasospasm, status post successful verapamil treatment by IR with 20 mg verapamil - 10/17 CT brain - less hemisphere edema with herniation through left craniotomy site, improved. - Echocardiogram 10/14/16 revealed EF 40-45%. Septal hypokinesis. Moderate MR. Severe pulmonary hypertension with pulmonary artery pressures estimated 61 mmHg Limited Echo 11/06: LVEF 60-65%, Trivial mitral and tricuspid regurgitation, No vegetations noted. - On diltiazem's 90 mg by mouth every 6 hours . - neurologically stable and doing well, and continued PT and rehabilitation. - PT, OT, speech following. Patient had helmet. Respiratory failure, S/P tracheostomy. Resolved now and stable. - S/p Trach Dr. Sullivan/Dr. Collazo 11/01 #8 [place] - CT angiogram chest/neck revealed right centrilobular bleeding likely source right bronchial artery. Repeat CT chest 11/29no visualization of active bleeding.- Resolved - 12/01 - embolization of right bronchial artery by IR- no further bleeding from tracheostomy - Redo trach 11/[address] Sullivan.now trach has been removed. - continue neb treatment. - trach removed Lower extremity edema improved. Ultrasound Doppler reviewed and no DVT. Patient with high risk of bleeding and is not chemoprophylaxis at this time. Continue SCDs and teds for DVT prophylaxis. Ileus- Resolved Elevated transaminases Hyperammonemia protein caloric malnutrition-calorie count performed- paper cutter recommendations noted; - tube feeding on hold- will leave the PEG in place and continue to monitor. -paper cutter following. Right occlusive subclavian, axillary and bilateral superficial cephalic thrombus - limited Echo to evaluate vegetation-neg. 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 Cardizem PO currently and 90 mg every 6 hours (for digital ischemia, Raynaud's) - Continue bacitracin twice a day to affected areas - We'll need to be started on systemic anticoagulation at some point however with embolization for hemoptysis holding full anticoagulation at this time. - evaluated by vascular surgery and no interventions recommended at this time. sacral ulcer - ABD dressing with [employer]-. Wound care also consulted. appreciate recommendations. - Turn position every 2 hours - Out of bed to chair activity DVT prophylaxis with SCD, no chemoprophylaxis secondary to risk for bleeding. clinically no change. continue current treatment. Course of hospitalization complications Acute hypoxic Respiratory failure secondary to mucous plugging- Resolved Possible healthcare associated pneumonia, Septic Shock- resolved. ARDS - resolved Noncardiogenic/neurogenic pulmonary edema- resolved. Massive Hemoptysis - resolved Aspiration pneumonitis - resolved Cerebral Salt Wasting/SIADH-resolved now hypernatremic - Creatinine currently within normal limits -> resolved. - Monitor urine output Septic and cardiogenic shock- resolved. LV dysfunction secondary to SAH - persistent, now resolved Elevated troponin- secondary to SAH, unlikely to be ACS. - resolved. Pulmonary hypertension s/p PEA arrest 11/28 after ETT dislodgement, hypoxic arrest Discharge Planning Awaiting placement. CM assisting w d/c planning Problem Qualifiers (1) Respiratory failure: Qualified Codes: J96.00 - Acute respiratory failure, unspecified whether with hypoxia or hypercapnia Yenny Munson MD Jan 26, 2017 11:04
[2017-01-26] MEDS: FERROUS SULFATE 325 MG (65 MG ELEMENTAL IRON) TAB PO SCH ×2 (12:00→17:05)
[2017-01-26 12:42] VITALS: BP 115/69; PULSE 72; RESP 20; TEMP 97.6; O2SAT 98
[2017-01-26] MEDS: ACETAMINOPHEN/HYDROcodone 325 MG/10 MG TAB PO PRN (13:13)
--- NOTE | 2017-01-26 13:44 | HHI.GIFU ---
Subjective Remarks Pt resting in bed eating chocolate mini donuts. at bedside. GI reconsulted for PEG tube removal, he is eating >90% meals currently and they have recommended removal. (Lakeshia Luis) Objective Vitals I&O Vital Signs Date Time Temp Pulse Resp B/P (MAP) Pulse Ox O2 Delivery O2 Flow Rate FiO2 01/26/17 12:42 97.6 72 20 115/69 (84) 98 01/26/17 08:32 98.7 72 20 132/71 (91) 97 01/26/17 04:00 99.0 68 18 116/69 (85) 95 01/26/17 00:00 98.9 72 18 116/71 (86) 96 01/25/17 20:00 98.1 75 20 119/73 (88) 97 01/25/17 16:00 98.0 79 18 106/68 (81) 98 I/O 01/25/17 01/25/17 01/25/17 01/26/17 01/26/17 01/26/17 07:00 15:00 23:00 07:00 15:00 23:00 Output Total 2000 ml 2300 ml Balance -2000 ml -2300 ml Output Urine Total 2000 ml 2300 ml Laboratory Date/Time Source Procedure Growth Status 11/15/16 05:20 Blood Peripheral Aerobic Blood Culture - Final NO GROWTH IN 5 DAYS Complete 11/15/16 05:20 Blood Peripheral Anaerobic Blood Culture - Final NO GROWTH IN 5 DAYS Complete 11/16/16 06:00 Sputum Endotracheal Gram Stain - Final Complete 11/16/16 06:00 Sputum Endotracheal Sputum Culture - Final HEAVY GROWTH NORMAL RESPIRATORY YOAN Complete 11/06/16 13:00 Urine Random Urine Urine Culture - Final <10,000 CFU/ML GRAM POSITIVE YOAN Complete 12/31/16 05:13 Wound Other Gram Stain - Final Complete 12/31/16 05:13 Wound Culture - Final Jada Albicans Enterobacter Cloacae Complete Physical Exam HEENT: Normocephalic; atraumatic; no jaundice. CHEST: diminished CARDIAC: RRR ABDOMEN: Soft, nondistended, nontender; no hepatosplenomegaly; bowel sounds are present in all four quadrants. PEG tube site without redness or swelling EXTREMITIES: left 2nd digit signs of necrosis COIN MACHINE ASSEMBLER:alert (Lakeshia Luis) Assessment and Plan Plan ASSESSMENT - dysphagia - resolved. tolerating diet, per nutrition sufficient PO intake. PEG tube removed with ease, pt tolerated procedure well. 4x4 gauze dressing placed - anemia -HH stable - SDH s/p evacuation, subrachnoid hemorrhage s/p coiling PLAN - successful PEG tube removal - NPO for 2-3 hours - notify GI if there is leakage - GI will sign off, please reconsult if needed This pt seen by myself and Dr Maher and this note is written on his behalf (Lakeshia LuisP) Plan Dr. Kumar saw the patient with the [facility] Patient seen and examined Agree with above Continue with current supportive care Monitor labs We will sign off (Santiago Kumar MD) Lakeshia LuisP Jan 26, 2017 13:44 Santiago Kumar MD Jan 26, 2017 20:17
[2017-01-26 16:18] VITALS: BP 108/66; PULSE 79; RESP 20; TEMP 98.2; O2SAT 98
[2017-01-26 20:00] VITALS: BP 115/68; PULSE 77; RESP 18; TEMP 98.7; O2SAT 96
[2017-01-26] MEDS: MELATONIN 5 MG TAB PO SCH (21:48)
[2017-01-27] VITALS (7 sets, daily range): BP systolic 108–121; BP diastolic 61–76; PULSE 61–80; RESP 18–20; TEMP 97.8–98.8; O2SAT 96–98
[2017-01-27] MEDS: DILTIAZEM HCL 90 MG TAB PO SCH ×5 (00:49→23:38)
[2017-01-27] MEDS: LACTOBACILLUS ACIDOPHILUS TAB PO SCH ×3 (08:46→17:38)
[2017-01-27] MEDS: FAMOTIDINE 20 MG TAB PO SCH ×2 (08:46→20:07)
[2017-01-27] MEDS: ASCORBIC ACID 500 MG TAB PO SCH ×2 (08:46→20:07)
[2017-01-27] MEDS: DOCUSATE SODIUM 100 MG CAP PO SCH ×2 (08:46→20:07)
[2017-01-27] MEDS: ARTIFICIAL TEARS OPTH SOLN 15 ML BTL EACH EYE SCH ×3 (08:47→17:39)
[2017-01-27] MEDS: CHLORHEXIDINE 0.12% (ORAL KIT) 15 ML CUP MT SCH ×2 (08:47→20:00)
[2017-01-27] MEDS: BACITRACIN TOP OINT 15 GM TUBE TOPICAL SCH ×2 (08:48→20:07)
--- NOTE | 2017-01-27 10:15 | HHI.PR ---
Subjective Remarks no complaints this morning. ate his breakfast. no pain. PEG tube removed yesterday Objective Vitals Vital Signs Date Time Temp Pulse Resp B/P (MAP) Pulse Ox O2 Delivery O2 Flow Rate FiO2 01/27/17 08:18 98.4 61 20 110/68 (82) 96 01/27/17 04:00 98.8 68 20 116/61 (79) 96 01/27/17 00:00 98.7 70 18 116/68 (84) 97 01/26/17 20:00 98.7 77 18 115/68 (84) 96 01/26/17 19:38 18 01/26/17 16:18 98.2 79 20 108/66 (80) 98 01/26/17 12:42 97.6 72 20 115/69 (84) 98 I/O 01/26/17 01/26/17 01/26/17 01/27/17 01/27/17 01/27/17 07:00 15:00 23:00 07:00 15:00 23:00 Intake Total 480 ml Output Total 2300 ml 400 ml 800 ml Balance -2300 ml 80 ml -800 ml Intake Oral 480 ml Output Urine Total 2300 ml 400 ml 800 ml # Bowel Movements 1 Result Diagram: 01/25/17 1030 01/25/17 1030 Imaging Last Impressions Lower Extremity Ultrasound 12/29/16 0000 Signed Impressions: Service Date/Time: December 13:07 - CONCLUSION: No sonographic or Doppler findings of deep venous thrombosis. Joni Shelton MD Carotid Artery Ultrasound 12/27/16 0000 Signed Impressions: Service Date/Time: Tuesday, December 27, 2016 17:19 - CONCLUSION: Mild plaque at the carotid bulb regions bilaterally without a significant stenosis seen. Yosvany Alfaro MD Aorta w/Runoff CTA 12/27/16 0000 Signed Impressions: Service Date/Time: Wednesday, December 28, 2016 17:28 - CONCLUSION: Atherosclerotic calcification seen throughout the arterial system without an area of significant stenosis. The trifurcation vessels are only faintly opacified. Yosvany Alfaro MD Modified Barium Swallow 12/23/16 0000 Signed Impressions: Service Date/Time: Friday, December 23, 2016 09:11 - CONCLUSION: Negative for aspiration.. Remington Woodward MD FACR Chest X-Ray 12/04/16 1753 Signed Impressions: Service Date/Time: Sunday, December 04, 2016 18:55 - CONCLUSION: 1. Placement of left central line tip in superior vena cava. No pneumothorax. Mild basilar airspace disease. Small right effusion. Gurwinder Root MD Upper Extremity Ultrasound 12/04/16 0000 Signed Impressions: Service Date/Time: Sunday, December 04, 2016 15:37 - CONCLUSION: 1. Positive for occlusive deep venous thrombosis in the right axillary and subclavian vein. Occlusive superficial thrombus in bilateral cephalic veins. Gurwinder Root MD Angiography 12/01/16 0000 Signed Impressions: Service Date/Time: November 14:02 - CONCLUSION: 1. Right side up on her hemorrhage with angiography of the right bronchial artery revealing no source of active hemorrhage. Empiric embolization was performed. Santos Crockett Jr., MD Chest CT 11/28/16 0000 Signed Impressions: Service Date/Time: Tuesday, November 29, 2016 05:13 - CONCLUSION: 1. Patchy alveolar disease characteristic of edema or pneumonia. 2. Severe emphysema 3. Gastrojejunostomy tube looped in the stomach Harvey Morejon MD Chest/Thorax CTA 11/26/16 0000 Signed Impressions: Service Date/Time: Saturday, November 26, 2016 20:18 - CONCLUSION: 1. Extensive filling defects within the right central bronchial tree characteristic of endobronchial hemorrhage. 2. Consolidating airspace disease in the right upper lobe and right lower lobe characteristic of hemorrhage and post obstructive lung consolidation. 3. Right bronchial artery is identified extending to the central right bronchial region 4. Advanced COPD. Nasir Amanda MD Abdomen X-Ray 11/19/16 06 Signed Impressions: Service Date/Time: Saturday, November 19, 2016 02:44 - CONCLUSION: Unchanged bowel gas pattern potentially relating to an ileus. Santos Crockett Jr., MD Transcranial Doppler Study Complete 10/20/16599 Signed Impressions: Service Date/Time: October 07:54 - CONCLUSION: Slight interval elevation of flow velocity measurements and ratio on the left Yosvany Polk MD Liver Ultrasound 10/19/16 Signed Impressions: Service Date/Time: Wednesday, October 19, 2016 11:20 - CONCLUSION: 1. Sludge filled gallbladder with thickened wall. 2. Moderate size bilateral pleural effusions and mild upper abdominal ascites. Santos Vazquez MD Cerebral Arteriogram 10/19/16 0000 Signed Impressions: Service Date/Time: Wednesday, October 19, 2016 12:47 - CONCLUSION: Uncomplicated cerebral arteriography with spasmolytic therapy as described in detail above. Yosvany Polk MD Head CT 10/17/16 0000 Signed Impressions: Service Date/Time: Monday, October 17, 2016 15:06 - CONCLUSION: Ventricles are slightly larger without ventriculostomy. Edema in the left hemisphere the brain herniating through the operative site. Remington Woodward MD FACR Infusion Non-thrombolysis 10/14/16 1103 Signed Impressions: Service Date/Time: Friday, October 14, 2016 10:21 - CONCLUSION: 1. Uncomplicated infusion for spasmolysis Harvey Morejon MD Neck CTA 10/07/16 0000 Signed Impressions: Service Date/Time: Friday, October 07, 2016 15:03 - CONCLUSION: 1. Mild carotid bulb atherosclerotic calcification bilaterally. However, no significant stenosis is present in either internal carotid artery. 2. Paranasal sinus mucoperiosteal thickening. 3. Please refer to brain CTA report for description of the intracranial findings. Yosvany Ramirez MD Head CTA 10/07/16 0000 Signed Impressions: Service Date/Time: Friday, October 07, 2016 15:03 - CONCLUSION: 1. 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 2. Large left subdural hematoma measuring 1.3 cm in depth with a significant, 1.6 cm left to right subfalcine shift. Joni Shelton MD Objective Remarks GENERAL: laying in bed CARDIOVASCULAR: Regular rate and regular rhythm without murmurs RESPIRATORY: Clear to auscultation. Breath sounds equal bilaterally. No wheezes GASTROINTESTINAL: Abdomen soft, non-tender, nondistended. PEG tube site w no signs of infection (removed yesterday by GI) Normal, active bowel sounds MUSCULOSKELETAL: Extremities without edema. moves extremities. NEURO: awake and alert. Procedures 10/13 Four-vessel cerebral angiography with verapamil treatment of vasospasm Status post left frontotemporal parietal craniectomy 10/08 for evacuation subdural hematoma/duraplasty. 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 parietal cranioplasty with replacement of skull flap by Dr Perry neurosurgery on 12/27/16 Date of Insertion: Dec 04, 2016 Line: Central Venous Catheter Side: Left Location: Internal, Jugular A/P Problem List: (1) Subarachnoid hemorrhage due to ruptured aneurysm ICD Code: I60.8 - Other nontraumatic subarachnoid hemorrhage (2) Subdural hematoma ICD Code: I62.00 - Nontraumatic subdural hemorrhage, unspecified (3) Intracranial aneurysm ICD Code: I67.1 - Cerebral aneurysm, nonruptured (4) Respiratory failure ICD Code: J96.90 - Respiratory failure, unspecified, unspecified whether with hypoxia or hypercapnia Status: Acute Assessment and Plan Update in medical management 01/26/17: No new changes to management at this time except for a consult to GI for PEG tube removal. CM assisting w d/c planning. Update in medical management 01/27/17: No new changes. s/p PEG tube removal yesterday. 1. Subdural Hematoma/duraplasty status post left frontotemporal parietal craniotomy 10/08. Status post left cranioplasty 12/27/16 status post decannulation- stable. 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 - 10/13 and 10/14 and 10/17) 10/19 left MCA territory vasospasm, status post successful verapamil treatment by IR with 20 mg verapamil - 10/17 CT brain - less hemisphere edema with herniation through left craniotomy site, improved. - Echocardiogram 10/14/16 revealed EF 40-45%. Septal hypokinesis. Moderate MR. Severe pulmonary hypertension with pulmonary artery pressures estimated 61 mmHg Limited Echo 11/06: LVEF 60-65%, Trivial mitral and tricuspid regurgitation, No vegetations noted. - On diltiazem's 90 mg by mouth every 6 hours . - neurologically stable and doing well, and continued PT and rehabilitation. - PT, OT, speech following. Patient had helmet. Respiratory failure, S/P tracheostomy. Resolved now and stable. - S/p Trach Dr. Sullivan/Dr. Collazo 11/01 #8 [place] - CT angiogram chest/neck revealed right centrilobular bleeding likely source right bronchial artery. Repeat CT chest 11/29no visualization of active bleeding.- Resolved - 12/01 - embolization of right bronchial artery by IR- no further bleeding from tracheostomy - Redo trach 11/[address] Sullivan.now trach has been removed. - continue neb treatment. - trach removed Lower extremity edema improved. Ultrasound Doppler reviewed and no DVT. Patient with high risk of bleeding and is not chemoprophylaxis at this time. Continue SCDs and teds for DVT prophylaxis. Ileus- Resolved Elevated transaminases Hyperammonemia protein caloric malnutrition-calorie count performed- network systems engineer recommendations noted; - tube feeding on hold- will leave the PEG in place and continue to monitor. -network systems engineer following. Right occlusive subclavian, axillary and bilateral superficial cephalic thrombus - limited Echo to evaluate vegetation-neg. 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 Cardizem PO currently and 90 mg every 6 hours (for digital ischemia, Raynaud's) - Continue bacitracin twice a day to affected areas - We'll need to be started on systemic anticoagulation at some point however with embolization for hemoptysis holding full anticoagulation at this time. - evaluated by vascular surgery and no interventions recommended at this time. sacral ulcer - ABD dressing with [employer]-. Wound care also consulted. appreciate recommendations. - Turn position every 2 hours - Out of bed to chair activity DVT prophylaxis with SCD, no chemoprophylaxis secondary to risk for bleeding. clinically no change. continue current treatment. Course of hospitalization complications Acute hypoxic Respiratory failure secondary to mucous plugging- Resolved Possible healthcare associated pneumonia, Septic Shock- resolved. ARDS - resolved Noncardiogenic/neurogenic pulmonary edema- resolved. Massive Hemoptysis - resolved Aspiration pneumonitis - resolved Cerebral Salt Wasting/SIADH-resolved now hypernatremic - Creatinine currently within normal limits -> resolved. - Monitor urine output Septic and cardiogenic shock- resolved. LV dysfunction secondary to SAH - persistent, now resolved Elevated troponin- secondary to SAH, unlikely to be ACS. - resolved. Pulmonary hypertension s/p PEA arrest 11/28 after ETT dislodgement, hypoxic arrest Discharge Planning Awaiting placement. CM assisting w d/c planning Problem Qualifiers (1) Respiratory failure: Qualified Codes: J96.00 - Acute respiratory failure, unspecified whether with hypoxia or hypercapnia Yenny Munson MD Jan 27, 2017 10:15
[2017-01-27] MEDS: FERROUS SULFATE 325 MG (65 MG ELEMENTAL IRON) TAB PO SCH ×2 (11:14→17:38)
[2017-01-27] MEDS: BACITRACIN OINT 0.9 GM PKT TOPICAL SCH (11:15)
[2017-01-27] MEDS: MELATONIN 5 MG TAB PO SCH (20:07)
[2017-01-28 04:36] VITALS: BP 113/71; PULSE 74; RESP 20; TEMP 98.2; O2SAT 97
[2017-01-28 05:45] VITALS: BP 117/73; PULSE 70
[2017-01-28] MEDS: DILTIAZEM HCL 90 MG TAB PO SCH ×3 (05:46→17:29)
[2017-01-28 08:00] VITALS: BP 117/65; PULSE 70; RESP 18; TEMP 97.7; O2SAT 97
[2017-01-28] MEDS: CHLORHEXIDINE 0.12% (ORAL KIT) 15 ML CUP MT SCH ×2 (08:00→20:00)
[2017-01-28] MEDS: DOCUSATE SODIUM 100 MG CAP PO SCH ×2 (08:05→20:22)
[2017-01-28] MEDS: LACTOBACILLUS ACIDOPHILUS TAB PO SCH ×3 (08:05→17:29)
[2017-01-28] MEDS: FAMOTIDINE 20 MG TAB PO SCH ×2 (08:05→20:22)
[2017-01-28] MEDS: BACITRACIN OINT 0.9 GM PKT TOPICAL SCH (08:06)
[2017-01-28] MEDS: ASCORBIC ACID 500 MG TAB PO SCH ×2 (08:06→20:22)
[2017-01-28] MEDS: ARTIFICIAL TEARS OPTH SOLN 15 ML BTL EACH EYE SCH ×3 (08:07→17:29)
[2017-01-28] MEDS: BACITRACIN TOP OINT 15 GM TUBE TOPICAL SCH ×2 (08:08→20:22)
[2017-01-28 12:00] VITALS: BP 126/71; PULSE 81; RESP 16; TEMP 98.1; O2SAT 99
[2017-01-28] MEDS: FERROUS SULFATE 325 MG (65 MG ELEMENTAL IRON) TAB PO SCH ×2 (12:06→17:30)
--- NOTE | 2017-01-28 14:28 | HHI.PR ---
Subjective Remarks Pt is resting comfortably in bed, no complaints. He understands he is awaiting placement. He had his PEG tube removed 01/26/17. Objective Vital Signs Date Time Temp Pulse Resp B/P (MAP) Pulse Ox O2 Delivery O2 Flow Rate FiO2 01/28/17 12:00 98.1 81 16 126/71 (89) 99 01/28/17 08:00 97.7 70 18 117/65 (82) 97 01/28/17 05:45 70 117/73 (88) 01/28/17 04:36 98.2 74 20 113/71 (85) 97 01/27/17 23:40 98.4 71 20 121/73 (89) 97 01/27/17 20:00 98.6 74 20 109/68 (82) 98 01/27/17 16:32 97.8 80 20 121/76 (91) 98 I/O 01/27/17 01/27/17 01/27/17 01/28/17 01/28/17 01/28/17 07:00 15:00 23:00 07:00 15:00 23:00 Intake Total 480 ml Output Total 800 ml 200 ml 1050 ml Balance -800 ml 280 ml -1050 ml Intake Oral 480 ml Output Urine Total 800 ml 200 ml 1050 ml # Bowel Movements 1 Result Diagram: 01/25/17 1030 01/25/17 1030 Imaging Last Impressions Lower Extremity Ultrasound 12/29/16 0000 Signed Impressions: Service Date/Time: December 13:07 - CONCLUSION: No sonographic or Doppler findings of deep venous thrombosis. Joni Shelton MD Carotid Artery Ultrasound 12/27/16 0000 Signed Impressions: Service Date/Time: Tuesday, December 27, 2016 17:19 - CONCLUSION: Mild plaque at the carotid bulb regions bilaterally without a significant stenosis seen. Yosvany Alfaro MD Aorta w/Runoff CTA 12/27/16 0000 Signed Impressions: Service Date/Time: Wednesday, December 28, 2016 17:28 - CONCLUSION: Atherosclerotic calcification seen throughout the arterial system without an area of significant stenosis. The trifurcation vessels are only faintly opacified. Yosvany Alfaro MD Modified Barium Swallow 12/23/16 0000 Signed Impressions: Service Date/Time: Friday, December 23, 2016 09:11 - CONCLUSION: Negative for aspiration.. Remington Woodward MD FACR Chest X-Ray 12/04/16 6773 Signed Impressions: Service Date/Time: Sunday, December 04, 2016 18:55 - CONCLUSION: 1. Placement of left central line tip in superior vena cava. No pneumothorax. Mild basilar airspace disease. Small right effusion. Gurwinder Root MD Upper Extremity Ultrasound 12/04/16 0000 Signed Impressions: Service Date/Time: Sunday, December 04, 2016 15:37 - CONCLUSION: 1. Positive for occlusive deep venous thrombosis in the right axillary and subclavian vein. Occlusive superficial thrombus in bilateral cephalic veins. Gurwinder Root MD Angiography 12/01/16 0000 Signed Impressions: Service Date/Time: November 14:02 - CONCLUSION: 1. Right side up on her hemorrhage with angiography of the right bronchial artery revealing no source of active hemorrhage. Empiric embolization was performed. Santos Crockett Jr., MD Chest CT 11/28/16 0000 Signed Impressions: Service Date/Time: Tuesday, November 29, 2016 05:13 - CONCLUSION: 1. Patchy alveolar disease characteristic of edema or pneumonia. 2. Severe emphysema 3. Gastrojejunostomy tube looped in the stomach Harvey Morejon MD Chest/Thorax CTA 11/26/16 0000 Signed Impressions: Service Date/Time: Saturday, November 26, 2016 20:18 - CONCLUSION: 1. Extensive filling defects within the right central bronchial tree characteristic of endobronchial hemorrhage. 2. Consolidating airspace disease in the right upper lobe and right lower lobe characteristic of hemorrhage and post obstructive lung consolidation. 3. Right bronchial artery is identified extending to the central right bronchial region 4. Advanced COPD. Nasir Amanda MD Abdomen X-Ray 11/19/16 0600 Signed Impressions: Service Date/Time: Saturday, November 19, 2016 02:44 - CONCLUSION: Unchanged bowel gas pattern potentially relating to an ileus. Santos Crockett Jr., MD Transcranial Doppler Study Complete 10/20/16 06 Signed Impressions: Service Date/Time: October 07:54 - CONCLUSION: Slight interval elevation of flow velocity measurements and ratio on the left Yosvany Polk MD Liver Ultrasound 10/19/16 Signed Impressions: Service Date/Time: Wednesday, October 19, 2016 11:20 - CONCLUSION: 1. Sludge filled gallbladder with thickened wall. 2. Moderate size bilateral pleural effusions and mild upper abdominal ascites. Santos Vazquez MD Cerebral Arteriogram 10/19/16 0000 Signed Impressions: Service Date/Time: Wednesday, October 19, 2016 12:47 - CONCLUSION: Uncomplicated cerebral arteriography with spasmolytic therapy as described in detail above. Yosvany Polk MD Head CT 10/17/16 0000 Signed Impressions: Service Date/Time: Monday, October 17, 2016 15:06 - CONCLUSION: Ventricles are slightly larger without ventriculostomy. Edema in the left hemisphere the brain herniating through the operative site. Remington Woodward MD FACR Infusion Non-thrombolysis 10/14/16 1103 Signed Impressions: Service Date/Time: Friday, October 14, 2016 10:21 - CONCLUSION: 1. Uncomplicated infusion for spasmolysis Harvey Morejon MD Neck CTA 10/07/16 0000 Signed Impressions: Service Date/Time: Friday, October 07, 2016 15:03 - CONCLUSION: 1. Mild carotid bulb atherosclerotic calcification bilaterally. However, no significant stenosis is present in either internal carotid artery. 2. Paranasal sinus mucoperiosteal thickening. 3. Please refer to brain CTA report for description of the intracranial findings. Yosvany Ramirez MD Head CTA 10/07/16 0000 Signed Impressions: Service Date/Time: Friday, October 07, 2016 15:03 - CONCLUSION: 1. 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 2. Large left subdural hematoma measuring 1.3 cm in depth with a significant, 1.6 cm left to right subfalcine shift. Joni Shelton MD Procedures 10/13 Four-vessel cerebral angiography with verapamil treatment of vasospasm Status post left frontotemporal parietal craniectomy 10/08 for evacuation subdural hematoma/duraplasty. 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 Breath sounds equal bilaterally. No wheezes GASTROINTESTINAL: Abdomen soft, non-tender, nondistended. MUSCULOSKELETAL: Extremities without edema. moves extremities. NEURO: awake and alert. DERM: Blackened and shriveled left index finger tip and right 4th finger tip, blackened toes. Procedures 10/13 Four-vessel cerebral angiography with verapamil treatment of vasospasm Status post left frontotemporal parietal craniectomy 10/08 for evacuation subdural hematoma/duraplasty. 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 parietal cranioplasty with replacement of skull flap by Dr Perry neurosurgery on 12/27/16 Date of Insertion: Dec 04, 2016 Line: Central Venous Catheter Side: Left Location: Internal, Jugular Assessment and Plan Problem List: (1) Subarachnoid hemorrhage ICD Codes: I60.9 - Nontraumatic subarachnoid hemorrhage, unspecified Status: Acute (2) Subdural hematoma ICD Codes: I62.00 - Nontraumatic subdural hemorrhage, unspecified (3) Intracranial aneurysm ICD Codes: I67.1 - Cerebral aneurysm, nonruptured (4) Respiratory failure ICD Codes: J96.90 - Respiratory failure, unspecified, unspecified whether with hypoxia or hypercapnia Status: Acute Assessment and Plan Current Status: PEG tube removed 01/26/17, patient donig well, resting comfortably. Awaiting discharge when placement available. 1. Subdural Hematoma/duraplasty status post left frontotemporal parietal craniotomy 10/08. Status post left cranioplasty 12/27/16 status post decannulation- stable. 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 - 10/13 and 10/14 and 10/17) 10/19 left MCA territory vasospasm, status post successful verapamil treatment by IR with 20 mg verapamil - 10/17 CT brain - less hemisphere edema with herniation through left craniotomy site, improved. - Echocardiogram 10/14/16 revealed EF 40-45%. Septal hypokinesis. Moderate MR. Severe pulmonary hypertension with pulmonary artery pressures estimated 61 mmHg Limited Echo 11/06: LVEF 60-65%, Trivial mitral and tricuspid regurgitation, No vegetations noted. - On diltiazem's 90 mg by mouth every 6 hours . - neurologically stable and doing well, and continued PT and rehabilitation. - PT, OT, speech following. Respiratory failure, S/P tracheostomy. Resolved now and stable. - S/p Trach Dr. Sullivan/Dr. Collazo 11/01 #8 [place] - CT angiogram chest/neck revealed right centrilobular bleeding likely source right bronchial artery. Repeat CT chest 11/29no visualization of active bleeding.- Resolved - 12/01 - embolization of right bronchial artery by IR- no further bleeding from tracheostomy - Redo trach 11/[address] Sullivan.now trach has been removed. - continue neb treatment. - trach removed Lower Extremity Edema - Resolved Ileus- Resolved Elevated transaminases Hyperammonemia protein caloric malnutrition-calorie count performed- decommissioning well site manager recommendations noted; decommissioning well site manager following. Right occlusive subclavian, axillary and bilateral superficial cephalic thrombus - limited Echo to evaluate vegetation-neg. 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 Cardizem PO currently and 90 mg every 6 hours (for digital ischemia, Raynaud's) - Continue bacitracin twice a day to affected areas - We'll need to be started on systemic anticoagulation at some point however with embolization for hemoptysis holding full anticoagulation at this time. - evaluated by vascular surgery and no interventions recommended at this time. sacral ulcer - ABD dressing with [employer]-. Wound care also consulted. appreciate recommendations. - Turn position every 2 hours - Out of bed to chair activity DVT prophylaxis with SCD, no chemoprophylaxis secondary to risk for bleeding. clinically no change. continue current treatment. Course of hospitalization complications (prior info due to long hospital stay) Acute hypoxic Respiratory failure secondary to mucous plugging- Resolved Possible healthcare associated pneumonia, Septic Shock- resolved. ARDS - resolved Noncardiogenic/neurogenic pulmonary edema- resolved. Massive Hemoptysis - resolved Aspiration pneumonitis - resolved Cerebral Salt Wasting/SIADH-resolved now hypernatremic - Creatinine currently within normal limits -> resolved. - Monitor urine output Septic and cardiogenic shock- resolved. LV dysfunction secondary to SAH - persistent, now resolved Elevated troponin- secondary to SAH, unlikely to be ACS. - resolved. Pulmonary hypertension s/p PEA arrest 11/28 after ETT dislodgement, hypoxic arrest Discharge Planning Case management assisting with placement into appropriate facility. Problem Qualifiers (1) Respiratory failure: Qualified Codes: J96.00 - Acute respiratory failure, unspecified whether with hypoxia or hypercapnia Marcos Lorenzo MD Jan 28, 2017 2:28 pm
[2017-01-28 16:00] VITALS: BP 116/76; PULSE 80; RESP 17; TEMP 97.4; O2SAT 96
[2017-01-28 20:00] VITALS: BP 118/73; PULSE 75; RESP 18; TEMP 98.4; O2SAT 96
[2017-01-28] MEDS: MELATONIN 5 MG TAB PO SCH (20:22)
[2017-01-29] VITALS (7 sets, daily range): BP systolic 111–119; BP diastolic 63–75; PULSE 67–85; RESP 16–18; TEMP 96.8–98.6; O2SAT 96–98
[2017-01-29] MEDS: DILTIAZEM HCL 90 MG TAB PO SCH ×5 (00:21→23:42)
[2017-01-29] MEDS: LACTOBACILLUS ACIDOPHILUS TAB PO SCH ×3 (07:40→17:10)
[2017-01-29] MEDS: DOCUSATE SODIUM 100 MG CAP PO SCH ×2 (07:40→21:28)
[2017-01-29] MEDS: FAMOTIDINE 20 MG TAB PO SCH ×2 (07:41→21:28)
[2017-01-29] MEDS: ASCORBIC ACID 500 MG TAB PO SCH ×2 (07:41→21:28)
[2017-01-29] MEDS: BACITRACIN OINT 0.9 GM PKT TOPICAL SCH (07:42)
[2017-01-29] MEDS: CHLORHEXIDINE 0.12% (ORAL KIT) 15 ML CUP MT SCH ×2 (07:42→20:00)
[2017-01-29] MEDS: ARTIFICIAL TEARS OPTH SOLN 15 ML BTL EACH EYE SCH ×3 (07:42→17:10)
[2017-01-29] MEDS: BACITRACIN TOP OINT 15 GM TUBE TOPICAL SCH ×2 (07:42→21:00)
[2017-01-29] MEDS: FERROUS SULFATE 325 MG (65 MG ELEMENTAL IRON) TAB PO SCH ×2 (13:11→17:09)
--- NOTE | 2017-01-29 15:14 | HHI.PR ---
Subjective Remarks Pt is resting comfortably in bed, no complaints. He understands he is awaiting placement. He had his PEG tube removed 01/26/17. No changes. Objective Vital Signs Date Time Temp Pulse Resp B/P (MAP) Pulse Ox O2 Delivery O2 Flow Rate FiO2 01/29/17 12:00 96.8 69 16 111/66 (81) 97 01/29/17 08:00 97.7 67 16 118/70 (86) 96 01/29/17 04:00 97.7 67 18 119/75 (90) 97 01/29/17 00:00 98.3 68 18 116/74 (88) 96 01/28/17 20:00 98.4 75 18 118/73 (88) 96 01/28/17 16:00 97.4 80 17 116/76 (89) 96 I/O 01/28/17 01/28/17 01/28/17 01/29/17 01/29/17 01/29/17 07:00 15:00 23:00 07:00 15:00 23:00 Output Total 1050 ml 950 ml 1150 ml Balance -1050 ml -950 ml -1150 ml Output Urine Total 1050 ml 950 ml 1150 ml # Bowel Movements 0 0 Result Diagram: 01/25/17 1030 01/25/17 1030 Procedures 10/13 Four-vessel cerebral angiography with verapamil treatment of vasospasm Status post left frontotemporal parietal craniectomy 10/08 for evacuation subdural hematoma/duraplasty. 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 Breath sounds equal bilaterally. No wheezes GASTROINTESTINAL: Abdomen soft, non-tender, nondistended. MUSCULOSKELETAL: Extremities without edema. moves extremities. DERM: 0.5cm clean wound at site of previous PEG tube, no sign of infection. NEURO: awake and alert. DERM: Blackened and shriveled left index finger tip and right 4th finger tip, blackened toes. Procedures 10/13 Four-vessel cerebral angiography with verapamil treatment of vasospasm Status post left frontotemporal parietal craniectomy 10/08 for evacuation subdural hematoma/duraplasty. 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 parietal cranioplasty with replacement of skull flap by Dr Perry neurosurgery on 12/27/16 Date of Insertion: Dec 04, 2016 Line: Central Venous Catheter Side: Left Location: Internal, Jugular Assessment and Plan Problem List: (1) Subarachnoid hemorrhage ICD Codes: I60.9 - Nontraumatic subarachnoid hemorrhage, unspecified Status: Acute (2) Subdural hematoma ICD Codes: I62.00 - Nontraumatic subdural hemorrhage, unspecified (3) Intracranial aneurysm ICD Codes: I67.1 - Cerebral aneurysm, nonruptured (4) Respiratory failure ICD Codes: J96.90 - Respiratory failure, unspecified, unspecified whether with hypoxia or hypercapnia Status: Acute Assessment and Plan Current Status: PEG tube removed 01/26/17, patient donig well, resting comfortably. Awaiting discharge when placement available. Showered today. 1. Subdural Hematoma/duraplasty status post left frontotemporal parietal craniotomy 10/08. Status post left cranioplasty 12/27/16 status post decannulation- stable. 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 - 10/13 and 10/14 and 10/17) 10/19 left MCA territory vasospasm, status post successful verapamil treatment by IR with 20 mg verapamil - 10/17 CT brain - less hemisphere edema with herniation through left craniotomy site, improved. - Echocardiogram 10/14/16 revealed EF 40-45%. Septal hypokinesis. Moderate MR. Severe pulmonary hypertension with pulmonary artery pressures estimated 61 mmHg Limited Echo 11/06: LVEF 60-65%, Trivial mitral and tricuspid regurgitation, No vegetations noted. - On diltiazem's 90 mg by mouth every 6 hours . - neurologically stable and doing well, and continued PT and rehabilitation. - PT, OT, speech following. Respiratory failure, S/P tracheostomy. Resolved now and stable. - S/p Trach Dr. Sullivan/Dr. Collazo 11/01 #8 Beti - CT angiogram chest/neck revealed right centrilobular bleeding likely source right bronchial artery. Repeat CT chest 11/29no visualization of active bleeding.- Resolved - 12/01 - embolization of right bronchial artery by IR- no further bleeding from tracheostomy - Redo trach 11/[address] Sullivan.now trach has been removed. - continue neb treatment. 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 Right occlusive subclavian, axillary and bilateral superficial cephalic thrombus - limited Echo to evaluate vegetation-neg. 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 Cardizem PO currently and 90 mg every 6 hours (for digital ischemia, Raynaud's) - Continue bacitracin twice a day to affected areas - We'll need to be started on systemic anticoagulation at some point however with embolization for hemoptysis holding full anticoagulation at this time. - evaluated by vascular surgery and no interventions recommended at this time. sacral ulcer - ABD dressing with [employer]-. Wound care also consulted. appreciate recommendations. - Turn position every 2 hours - Out of bed to chair activity DVT prophylaxis with SCD, no chemoprophylaxis secondary to risk for bleeding. clinically no change. continue current treatment. Course of hospitalization complications (prior info due to long hospital stay) Acute hypoxic Respiratory failure secondary to mucous plugging- Resolved Possible healthcare associated pneumonia, Septic Shock- resolved. ARDS - resolved Noncardiogenic/neurogenic pulmonary edema- resolved. Massive Hemoptysis - resolved Aspiration pneumonitis - resolved Cerebral Salt Wasting/SIADH-resolved now hypernatremic - Creatinine currently within normal limits -> resolved. - Monitor urine output Septic and cardiogenic shock- resolved. LV dysfunction secondary to SAH - persistent, now resolved Elevated troponin- secondary to SAH, unlikely to be ACS. - resolved. Pulmonary hypertension s/p PEA arrest 11/28 after ETT dislodgement, hypoxic arrest Problem Qualifiers (1) Respiratory failure: Qualified Codes: J96.00 - Acute respiratory failure, unspecified whether with hypoxia or hypercapnia Marcos Lorenzo MD Jan 29, 2017 3:14 pm
[2017-01-29] MEDS: MELATONIN 5 MG TAB PO SCH (21:28)
[2017-01-30] VITALS: BP 113/70; PULSE 74; RESP 18; TEMP 98.5; O2SAT 97
[2017-01-30 04:00] VITALS: BP 123/74; PULSE 67; RESP 18; TEMP 98.2; O2SAT 97
[2017-01-30] MEDS: DILTIAZEM HCL 90 MG TAB PO SCH ×3 (06:10→17:02)
[2017-01-30 08:21] VITALS: BP 107/70; PULSE 75; RESP 16; TEMP 98.2; O2SAT 97
[2017-01-30] MEDS: ASCORBIC ACID 500 MG TAB PO SCH ×2 (08:49→21:01)
[2017-01-30] MEDS: LACTOBACILLUS ACIDOPHILUS TAB PO SCH ×3 (08:49→17:01)
[2017-01-30] MEDS: ARTIFICIAL TEARS OPTH SOLN 15 ML BTL EACH EYE SCH ×3 (08:49→17:03)
[2017-01-30] MEDS: CHLORHEXIDINE 0.12% (ORAL KIT) 15 ML CUP MT SCH ×2 (08:49→20:00)
[2017-01-30] MEDS: FAMOTIDINE 20 MG TAB PO SCH ×2 (08:49→21:01)
[2017-01-30] MEDS: DOCUSATE SODIUM 100 MG CAP PO SCH ×2 (08:49→21:00)
[2017-01-30] MEDS: BACITRACIN TOP OINT 15 GM TUBE TOPICAL SCH ×2 (09:00→21:05)
[2017-01-30] MEDS: BACITRACIN OINT 0.9 GM PKT TOPICAL SCH (09:00)
--- NOTE | 2017-01-30 11:34 | HHI.PR ---
Subjective Remarks Pt is resting comfortably in bed, no complaints, ambulating well. He understands he is awaiting placement. He had his PEG tube removed 01/26/17. No changes. Objective Vital Signs Date Time Temp Pulse Resp B/P (MAP) Pulse Ox O2 Delivery O2 Flow Rate FiO2 01/30/17 08:21 98.2 75 16 107/70 (82) 97 01/30/17 04:00 98.2 67 18 123/74 (90) 97 01/30/17 00:00 98.5 74 18 113/70 (84) 97 01/29/17 20:00 98.6 78 18 115/71 (86) 98 01/29/17 16:00 97.5 85 18 111/63 (79) 98 01/29/17 14:00 97 01/29/17 12:00 96.8 69 16 111/66 (81) 97 I/O 01/29/17 01/29/17 01/29/17 01/30/17 01/30/17 01/30/17 07:00 15:00 23:00 07:00 15:00 23:00 Output Total 1150 ml 750 ml 650 ml 2250 ml Balance -1150 ml -750 ml -650 ml -2250 ml Output Urine Total 1150 ml 750 ml 650 ml 2250 ml # Voids 7 # Bowel Movements 0 1 1 Procedures 10/13 Four-vessel cerebral angiography with verapamil treatment of vasospasm Status post left frontotemporal parietal craniectomy 10/08 for evacuation subdural hematoma/duraplasty. 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 Breath sounds equal bilaterally. No wheezes GASTROINTESTINAL: Abdomen soft, non-tender, nondistended. MUSCULOSKELETAL: Extremities without edema. moves extremities. DERM: 0.5cm clean wound at site of previous PEG tube, no sign of infection. NEURO: awake and alert. DERM: Blackened and shriveled left index finger tip and right 4th finger tip, blackened toes. Procedures 10/13 Four-vessel cerebral angiography with verapamil treatment of vasospasm Status post left frontotemporal parietal craniectomy 10/08 for evacuation subdural hematoma/duraplasty. 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 parietal cranioplasty with replacement of skull flap by Dr Perry neurosurgery on 12/27/16 Date of Insertion: Dec 04, 2016 Line: Central Venous Catheter Side: Left Location: Internal, Jugular Assessment and Plan Problem List: (1) Subarachnoid hemorrhage ICD Codes: I60.9 - Nontraumatic subarachnoid hemorrhage, unspecified Status: Acute (2) Subdural hematoma ICD Codes: I62.00 - Nontraumatic subdural hemorrhage, unspecified (3) Intracranial aneurysm ICD Codes: I67.1 - Cerebral aneurysm, nonruptured (4) Respiratory failure ICD Codes: J96.90 - Respiratory failure, unspecified, unspecified whether with hypoxia or hypercapnia Status: Acute Assessment and Plan Current Status: PEG tube removed 01/26/17, patient donig well, ambulating, balanced. Awaiting discharge when placement available. 1. Subdural Hematoma/duraplasty status post left frontotemporal parietal craniotomy 10/08. Status post left cranioplasty 12/27/16 status post decannulation- stable. 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 - 10/13 and 10/14 and 10/17) 10/19 left MCA territory vasospasm, status post successful verapamil treatment by IR with 20 mg verapamil - 10/17 CT brain - less hemisphere edema with herniation through left craniotomy site, improved. - Echocardiogram 10/14/16 revealed EF 40-45%. Septal hypokinesis. Moderate MR. Severe pulmonary hypertension with pulmonary artery pressures estimated 61 mmHg Limited Echo 11/06: LVEF 60-65%, Trivial mitral and tricuspid regurgitation, No vegetations noted. - On diltiazem's 90 mg by mouth every 6 hours . - neurologically stable and doing well, and continued PT and rehabilitation. - PT, OT, speech following. Respiratory failure, S/P tracheostomy. Resolved now and stable. - S/p Trach Dr. Sullivan/Dr. Collazo 11/01 #8 Beti - CT angiogram chest/neck revealed right centrilobular bleeding likely source right bronchial artery. Repeat CT chest 11/29no visualization of active bleeding.- Resolved - 12/01 - embolization of right bronchial artery by IR- no further bleeding from tracheostomy - Redo trach 11/[address] Sullivan.now trach has been removed. - continue neb treatment. - trach removed Lower Extremity Edema - Resolved Ileus- Resolved Elevated transaminases Hyperammonemia protein caloric malnutrition-calorie count performed- group therapist recommendations noted; group therapist following. Right occlusive subclavian, axillary and bilateral superficial cephalic thrombus - limited Echo to evaluate vegetation-neg. 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 Cardizem PO currently and 90 mg every 6 hours (for digital ischemia, Raynaud's) - Continue bacitracin twice a day to affected areas - We'll need to be started on systemic anticoagulation at some point however with embolization for hemoptysis holding full anticoagulation at this time. - evaluated by vascular surgery and no interventions recommended at this time. sacral ulcer - ABD dressing with [employer]-. Wound care also consulted. appreciate recommendations. - Turn position every 2 hours - Out of bed to chair activity DVT prophylaxis with SCD, no chemoprophylaxis secondary to risk for bleeding. clinically no change. continue current treatment. Course of hospitalization complications (prior info due to long hospital stay) Acute hypoxic Respiratory failure secondary to mucous plugging- Resolved Possible healthcare associated pneumonia, Septic Shock- resolved. ARDS - resolved Noncardiogenic/neurogenic pulmonary edema- resolved. Massive Hemoptysis - resolved Aspiration pneumonitis - resolved Cerebral Salt Wasting/SIADH-resolved now hypernatremic - Creatinine currently within normal limits -> resolved. - Monitor urine output Septic and cardiogenic shock- resolved. LV dysfunction secondary to SAH - persistent, now resolved Elevated troponin- secondary to SAH, unlikely to be ACS. - resolved. Pulmonary hypertension s/p PEA arrest 11/28 after ETT dislodgement, hypoxic arrest Problem Qualifiers (1) Respiratory failure: Qualified Codes: J96.00 - Acute respiratory failure, unspecified whether with hypoxia or hypercapnia Marcos Lorenzo MD Jan 30, 2017 11:34
[2017-01-30] MEDS: FERROUS SULFATE 325 MG (65 MG ELEMENTAL IRON) TAB PO SCH ×2 (11:50→17:02)
[2017-01-30 12:34] VITALS: BP 119/68; PULSE 77; RESP 17; TEMP 97.9; O2SAT 98
[2017-01-30 16:54] VITALS: BP_SYST 116; PULSE 77; RESP 16; TEMP 98.1; O2SAT 97
[2017-01-30 20:00] VITALS: BP 114/72; PULSE 77; RESP 18; TEMP 98.3; O2SAT 97
[2017-01-30] MEDS: MELATONIN 5 MG TAB PO SCH (21:04)
[2017-01-31] VITALS: BP 124/74; PULSE 83; RESP 18; TEMP 98.7; O2SAT 96
[2017-01-31] MEDS: DILTIAZEM HCL 90 MG TAB PO SCH ×4 (00:44→18:07)
[2017-01-31 04:00] VITALS: BP 108/65; PULSE 72; RESP 18; TEMP 98.6; O2SAT 98
[2017-01-31 08:11] VITALS: BP 122/74; PULSE 78; RESP 18; TEMP 97.3; O2SAT 98
[2017-01-31] MEDS: LACTOBACILLUS ACIDOPHILUS TAB PO SCH ×3 (08:35→18:06)
[2017-01-31] MEDS: FAMOTIDINE 20 MG TAB PO SCH ×2 (08:35→21:56)
[2017-01-31] MEDS: DOCUSATE SODIUM 100 MG CAP PO SCH ×2 (08:35→21:00)
[2017-01-31] MEDS: ASCORBIC ACID 500 MG TAB PO SCH ×2 (08:35→21:56)
[2017-01-31] MEDS: ARTIFICIAL TEARS OPTH SOLN 15 ML BTL EACH EYE SCH ×3 (08:36→18:07)
[2017-01-31] MEDS: CHLORHEXIDINE 0.12% (ORAL KIT) 15 ML CUP MT SCH ×2 (08:36→20:00)
--- NOTE | 2017-01-31 10:42 | HHI.NSPN ---
Note Status Status: Progress Note Interval History Diagnosis SAH Interval History This is a 56-year-old male brought to the emergency room as an emergency transfer from another institution with history of intracranial bleed. He was transferred from [facility] and [facility]. Apparently the patient said that patient earlier this morning was coming down the stairs when he started feeling some left-sided weakness and numbness. He called 911 and by the time EMS arrived they detected severe neurological deficits and called a stroke alert. No seizure activity reported. No tongue biting. No incontinence of stool or urine. Patient was taken to [facility]. Apparently he was not able to move his right side . When patient arrived his mental status started to decline and he was intubated emergently in the ER for airway protection. A CT scan of the head showed extensive subarachnoid bleed. In addition he had a sizable subdural hematoma. He was brought emergently on the ventilator. He was on a propofol drip and well sedated. GCS was 3. He was on a Cardene drip and blood pressure was in the 120s. Neurosurgical consultation was requested 10/08. POD #1 Open eyes and follows commands 10/12. Doing very well. Neurologically stable. Patient is in restraints secondary to pulling out his [place] multiple times. 10/13. Much more lethargic, difficult to speak with new aphasia 10/14. Improved after angiography. Today he developed new onset of aphasia and right hemiparesis 10/17. Intubated and sedated. Lung infiltrates dense bilaterally, reflected in shunting and problems with oxygenation. 01/31. He feels much better. legs are stronger Labs, Micro, & Vital Signs Results Date Time Temp Pulse Resp B/P (MAP) Pulse Ox O2 Delivery O2 Flow Rate FiO2 01/31/17 08:11 97.3 78 18 122/74 (90) 98 01/31/17 04:00 98.6 72 18 108/65 (79) 98 01/31/17 00:00 98.7 83 18 124/74 (91) 96 01/30/17 20:00 98.3 77 18 114/72 (86) 97 01/30/17 16:54 98.1 77 16 116/ 97 01/30/17 12:34 97.9 77 17 119/68 (85) 98 Constitutional Vital Signs Date Time Temp Pulse Resp B/P (MAP) Pulse Ox O2 Delivery O2 Flow Rate FiO2 01/31/17 08:11 97.3 78 18 122/74 (90) 98 01/31/17 04:00 98.6 72 18 108/65 (79) 98 01/31/17 00:00 98.7 83 18 124/74 (91) 96 01/30/17 20:00 98.3 77 18 114/72 (86) 97 01/30/17 16:54 98.1 77 16 116/ 97 01/30/17 12:34 97.9 77 17 119/68 (85) 98 Physical Exam Surgical incision is covered with clean, dry dressing alert, smiling, no acute distress CN: pupils equal, facial motor symmetric Motor: moves all four extremities with good strength Sensory exam intact Medications Current Medications Current Medications Iohexol (Omnipaque 350 Inj) 100 ml STK-MED ONCE IVCONTRAST Last administered on 10/07/16 14:21; Start 10/07/16 at 14:21; Stop 10/07/16 at 15:21; Status DC Mannitol 50 ml @ As Directed STK-MED ONCE .ROUTE ; Start 10/07/16 at 15:25; Stop 10/07/16 at 15:26; Status DC Propofol 0 ml @ As Directed STK-MED ONCE .ROUTE ; Start 10/07/16 at 15:25; Stop 10/07/16 at 15:26; Status DC Levetriacetam (Keppra Inj) 1,000 mg STK-MED ONCE IV Last administered on 18:30; Start 10/07/16 at 15:27; Stop 10/07/16 at 15:28; Status DC Mannitol (Mannitol Inj) 50 gm ONCE ONCE IV Last administered on 10/13/16 21: 00; Start 10/07/16 at 15:30; Stop 10/07/16 at 15:31; Status DC Nicardipine HCl 25 mg/Sodium Chloride 260 ml @ 52 mls/hr Q5H PRN IV Blood pressure management; Start 10/07/16 at 15:40; Stop 10/14/16 at 21:02; Status DC Propofol 100 ml @ 0 mls/hr Q0M PRN IV Ordered RASS Last administered on 23:01; Start 10/07/16 at 15:40; Stop 10/07/16 at 23:16; Status DC Sodium Chloride 1,000 ml @ 75 mls/hr [id number] IV ; Start 10/07/16 at 16:08; Stop 10/07/16 at 18:34; Status DC Sodium Chloride (NS Flush) 2 ml UNSCH PRN IV FLUSH FLUSH AFTER USING IV ACCESS ; Start 10/07/16 at 16:15; Stop 10/07/16 at 18:40; Status DC Sodium Chloride (NS Flush) 2 ml BID IV FLUSH ; Start 10/07/16 at 21:00; Stop at 21:00; Status DC Acetaminophen (Tylenol) 650 mg Q6H PRN PO PAIN 1-10 AND/OR FEVER >101F; Start 10/07/16 at 16:15; Stop 10/07/16 at 19:04; Status DC Albuterol/ Ipratropium (Duoneb Neb) 1 ampule Q6HR NEB NEB Last administered on 10/11/16 15:16; Start 10/07/16 at 22:00; Stop 10/11/16 at 21:59; Status DC Albuterol/ Ipratropium (Duoneb Neb) 1 ampule Q4HR NEB PRN INH SHORTNESS OF BREATH Last administered on 10/14/16 19:33; Start 10/07/16 at 16:15; Stop at 09:43; Status DC Chlorhexidine Gluconate (Peridex 0.12% Liq) 15 ml BID@08,20 MT Last administered on 11/28/16 08:00; Start 10/07/16 at 20:00; Stop 11/28/16 at 11: 18; Status DC Pantoprazole Sodium (Protonix Inj) 40 mg DAILY IV ; Start 10/08/16 at 09:00; Stop 10/08/16 at 09:00; Status DC Miscellaneous Information 1 [id number] ; Start 10/07/16 at 16:15; Stop 10/19/16 at 12:07; Status DC Chlorhexidine Gluconate (Chlorhexidine 2% Cloth) Taper DAILY@04 TOP Last administered on 10/19/16 03:13; Start 10/08/16 at 04:00; Stop 10/19/16 at 12:07; Status DC Chlorhexidine Gluconate (Chlorhexidine 2% Cloth) 3 pack UNSCH PRN TOP HYGIENIC CARE; Start 10/07/16 at 16:15; Stop 10/19/16 at 12:07; Status DC Insulin Aspart (NovoLOG SUPPLEMENTAL SCALE) 1 Q6HR SQ Last administered on 06:40; Start 10/07/16 at 18:00; Stop 10/20/16 at 09:23; Status DC Propofol 100 ml @ 0 mls/hr Q0M PRN IV SEDATION; Start 10/07/16 at 16:08; Status UNV Nimodipine (Nimotop) 60 mg Q4HR OG-TUBE Last administered on 10/12/16 15:18; Start 10/07/16 at 20:00; Stop 10/12/16 at 23:47; Status DC Verapamil HCl (Isoptin Inj) 10 mg STK-MED ONCE .ROUTE ; Start 10/07/16 at 16:45 ; Stop 10/07/16 at 16:46; Status DC Nitroglycerin (Nitroglycerin 2% Oint) 1 inch STK-MED ONCE .ROUTE ; Start at 16:55; Stop 10/07/16 at 16:56; Status DC Heparin Sodium (Porcine) (Heparin Inj) 10,000 units STK-MED ONCE .ROUTE ; Start 10/07/16 at 16:56; Stop 10/07/16 at 16:57; Status DC Potassium Chloride/Sodium Chloride 1,000 ml @ 100 mls/hr Q10H IV Last administered on 10/14/16 07:08; Start 10/07/16 at 18:20; Stop 10/14/16 at 21:02; Status DC IV Flush (NS Flush) 2 ml UNSCH PRN IVF FLUSH AFTER USING IV ACCESS; Start 10/07 at 18:30; Stop 10/19/16 at 12:09; Status DC IV Flush (NS Flush) 2 ml BID IVF Last administered on 10/19/16 09:00; Start at 21:00; Stop 10/19/16 at 12:09; Status DC Cefazolin Sodium/ Dextrose 50 ml @ 100 mls/hr Q8H IV Last administered on 10/08 10:30; Start 10/07/16 at 19:00; Stop 10/08/16 at 11:29; Status DC Levetriacetam 500 mg/Sodium Chloride 105 ml @ 400 mls/hr Q12H IV Last administered on 10/31/16 05:11; Start 10/08/16 at 06:00; Stop 10/31/16 at 10:47 ; Status DC Bisacodyl (Dulcolax Supp) 10 mg DAILY PRN RECTAL CONSTIPATION; Start 10/07/16 at 18:30; Stop 10/31/16 at 10:47; Status DC Docusate Sodium (Colace) 100 mg BID PO Last administered on 10/19/16 09:00; Start 10/07/16 at 21:00; Stop 10/19/16 at 12:15; Status DC Pantoprazole Sodium (Protonix) 40 mg DAILY PO Last administered on 10/14/16 07: 47; Start 10/08/16 at 09:00; Stop 10/19/16 at 09:46; Status DC Pantoprazole Sodium (Protonix Inj) 40 mg DAILY IVP Last administered on 07:45; Start 10/08/16 at 09:00; Stop 10/12/16 at 14:30; Status DC Ondansetron HCl (Zofran Inj) 4 mg Q6H PRN IV NAUSEA OR VOMITING Last administered on 11/13/16 20:31; Start 10/07/16 at 18:30; Stop 12/08/16 at 13: 55; Status DC Calcium Gluconate (Calcium Gluconate Inj) 1 gm UNSCH PRN IV SEE LABEL COMMENTS Last administered on 10/16/16 10:00; Start 10/07/16 at 18:30; Stop 11/17/16 at 14:34; Status DC Potassium Chloride 100 ml @ 50 mls/hr UNSCH PRN IV POTASSIUM LESS THAN 4 Last administered on 12/02/16 08:13; Start 10/07/16 at 18:30; Stop 12/16/16 at 15: 01; Status DC Magnesium Sulfate 4 gm/Sodium Chloride 108 ml @ 108 mls/hr UNSCH PRN IV MAGNESIUM LESS THAN 2; Start 10/07/16 at 18:30; Stop 12/27/16 at 11:35; Status DC Acetaminophen/ Hydrocodone Bitart ([place] 10-325 Mg) 1 tab Q4H PRN PO PAIN SCALE 1 TO 5 Last administered on 10/13/16 13:07; Start 10/07/16 at 18:30; Stop 10/15/16 at 08:05; Status DC Acetaminophen/ Hydrocodone Bitart ([place] 10-325 Mg) 2 tab Q4H PRN PO PAIN SCALE 6 TO 10 Last administered on 10/09/16 10:20; Start 10/07/16 at 18:30; Stop 10/15/16 at 08:05; Status DC Morphine Sulfate (Morphine Inj) 2 mg Q2H PRN IV PUSH PAIN SCALE 1 TO 6 Last administered on 10/10/16 17:52; Start 10/07/16 at 18:30; Stop 10/15/16 at 08:05 ; Status DC Morphine Sulfate (Morphine Inj) 4 mg Q2H PRN IV PUSH PAIN SCALE 7 TO 10 Last administered on 10/08/16 01:55; Start 10/07/16 at 18:30; Stop 10/15/16 at 08:05 ; Status DC Acetaminophen (Tylenol) 650 mg Q4H PRN PO TEMP >100.4 Last administered on 11/14 03:07; Start 10/07/16 at 18:30; Stop 11/30/16 at 13:12; Status DC Iodixanol (VISIPAQUE 320 INJ (Rad Spec)) 65 ml STK-MED ONCE I-ARTERIAL Last administered on 10/07/16 18:38; Start 10/07/16 at 18:38; Stop 10/07/16 at 18:39 ; Status DC Dextrose (D50w (Vial) Inj) 50 ml UNSCH PRN IV PUSH HYPOGLYCEMIA - SEE COMMENTS Last administered on 11/01/16 09:22; Start 10/07/16 at 19:15; Stop 11/12/16 at 08:41; Status DC Glucagon (Glucagon Inj) 1 mg UNSCH PRN OTHER HYPOGLYCEMIA-SEE COMMENTS; Start 10/07/16 at 19:15; Stop 11/12/16 at 08:42; Status DC Midazolam HCl (Versed Inj) 4 mg STK-MED ONCE .ROUTE ; Start 10/07/16 at 19:51; Stop 10/07/16 at 19:52; Status DC Fentanyl Citrate (fentaNYL INJ) 250 mcg STK-MED ONCE .ROUTE ; Start 10/07/16 at 20:32; Stop 10/07/16 at 20:33; Status DC Propofol 100 ml @ 0 mls/hr TITRATE PRN IV Sedation Last administered on 05:31; Start 10/07/16 at 23:15; Stop 11/01/16 at 14:52; Status DC Epinephrine HCl (EPINEPHrine (1:10,000) INJ) 1 mg STK-MED ONCE .ROUTE ; Start at 04:09; Stop 10/09/16 at 04:10; Status DC Atropine Sulfate (Atropine Inj) 1 mg STK-MED ONCE .ROUTE ; Start 10/09/16 at 04: 09; Stop 10/09/16 at 04:10; Status DC Lidocaine HCl (Xylocaine 2% Inj) 100 mg STK-MED ONCE .ROUTE ; Start 10/09/16 at 04:09; Stop 10/09/16 at 04:10; Status DC Nimodipine (Nimotop) 60 mg Q4HR PO Last administered on 11/02/16 20:23; Start 10/13/16 at 00:00; Stop 11/02/16 at 23:59; Status DC Verapamil HCl (Isoptin Inj) 20 mg STK-MED ONCE .ROUTE Last administered on 10/13 17:10; Start 10/13/16 at 17:10; Stop 10/13/16 at 17:11; Status DC Iodixanol (VISIPAQUE 320 INJ (Rad Spec)) 45 ml STK-MED ONCE I-ARTERIAL Last administered on 10/13/16 17:40; Start 10/13/16 at 17:49; Stop 10/13/16 at 17:50 ; Status DC Midazolam HCl (Versed Inj) 2 mg STK-MED ONCE .ROUTE ; Start 10/13/16 at 18:32; Stop 10/13/16 at 18:33; Status DC Fentanyl Citrate (fentaNYL INJ) 200 mcg STK-MED ONCE .ROUTE ; Start 10/13/16 at 18:32; Stop 10/13/16 at 18:33; Status DC Sodium Chloride 2,000 ml @ 0 mls/hr Q0M IV Last administered on 10/14/16 20:20 ; Start 10/13/16 at 21:45; Stop 10/14/16 at 23:59; Status DC Phenylephrine HCl (Neosynephrine Inj) 10 mg STK-MED ONCE .ROUTE Last administered on 10/14/16 09:10; Start 10/14/16 at 09:10; Stop 10/14/16 at 09:11; Status DC Verapamil HCl (Isoptin Inj) 20 mg STK-MED ONCE .ROUTE Last administered on 10:19; Start 10/14/16 at 10:19; Stop 10/14/16 at 10:20; Status DC Fentanyl Citrate (fentaNYL INJ) 100 mcg STK-MED ONCE .ROUTE Last administered on 10/14/16 10:32; Start 10/14/16 at 10:32; Stop 10/14/16 at 10:33; Status DC Midazolam HCl (Versed Inj) 2 mg STK-MED ONCE .ROUTE Last administered on 10:32; Start 10/14/16 at 10:32; Stop 10/14/16 at 10:33; Status DC Midazolam HCl (Versed Inj) 2 mg STK-MED ONCE .ROUTE ; Start 10/14/16 at 10:32; Stop 10/14/16 at 10:33; Status DC Vasopressin 40 units/Dextrose 100 ml @ 4.5 mls/hr [id number] IV Last administered on 10/25/16 02:30; Start 10/14/16 at 11:30; Stop 10/31/16 at 10:47 ; Status DC Albumin Human (Albumin 5% Inj) 25 gm ONCE ONCE IV Last administered on 11:34; Start 10/14/16 at 11:15; Stop 10/14/16 at 11:17; Status DC Iodixanol (VISIPAQUE 320 INJ (Rad Spec)) 10 ml STK-MED ONCE I-ARTERIAL Last administered on 10/14/16 11:06; Start 10/14/16 at 11:06; Stop 10/14/16 at 11:07; Status DC Fludrocortisone Acetate (Florinef) 0.1 mg BID PO Last administered on 10/15/16 11:39; Start 10/14/16 at 11:45; Stop 10/15/16 at 13:17; Status DC Phenylephrine HCl (Neosynephrine Inj) 10 mg STK-MED ONCE .ROUTE Last administered on 10/14/16 12:18; Start 10/14/16 at 12:18; Stop 10/14/16 at 12:19; Status DC Norepinephrine Bitartrate 250 ml @ As Directed STK-MED ONCE IV ; Start 10/14/16 at 13:14; Stop 10/14/16 at 13:15; Status DC Norepinephrine Bitartrate (Levophed Inj) 4 mg STK-MED ONCE .ROUTE Last administered on 10/14/16 13:15; Start 10/14/16 at 13:15; Stop 10/14/16 at 13:16; Status DC Etomidate (Amidate Inj) 20 mg STK-MED ONCE .ROUTE Last administered on 14:18; Start 10/14/16 at 13:44; Stop 10/14/16 at 13:45; Status DC Midazolam HCl (Versed Inj) 5 mg STK-MED ONCE .ROUTE Last administered on 14:18; Start 10/14/16 at 13:44; Stop 10/14/16 at 13:45; Status DC Rocuronium [place] (Zemuron Inj) 50 mg STK-MED ONCE .ROUTE Last administered on 10/14/16 14:17; Start 10/14/16 at 13:45; Stop 10/14/16 at 13:46; Status DC Fentanyl Citrate 250 ml @ 5 mls/hr TITRATE PRN IV SEDATION Last administered on 10/30/16 17:39; Start 10/14/16 at 15:00; Stop 11/01/16 at 14:52; Status DC Phenylephrine HCl (Neosynephrine Inj) 10 mg STK-MED ONCE .ROUTE Last administered on 10/14/16 14:26; Start 10/14/16 at 14:26; Stop 10/14/16 at 14:27; Status DC Norepinephrine Bitartrate 4 mg/ Sodium Chloride 250 ml @ 7.5 mls/hr TITRATE PRN IV Blood pressure management Last administered on 10/15/16 15:05; Start 10/14 at 14:45; Stop 10/15/16 at 14:54; Status DC Terbutaline Sulfate (Brethine Inj) 1 mg UNSCH PRN SQ For Extravasation; Start 10/14/16 at 14:45; Stop 10/19/16 at 12:10; Status DC Rocuronium [place] (Zemuron Inj) 50 mg STK-MED ONCE .ROUTE Last administered on 10/14/16 14:43; Start 10/14/16 at 14:43; Stop 10/14/16 at 14:44; Status DC Midazolam HCl 100 ml @ 2 mls/hr TITRATE PRN IV SEDATION Last administered on 22:54; Start 10/14/16 at 15:00; Stop 10/25/16 at 08:47; Status DC Phenylephrine HCl (Neosynephrine Inj) 10 mg STK-MED ONCE .ROUTE ; Start 10/14/16 at 18:03; Stop 10/14/16 at 18:04; Status DC Phenylephrine HCl 40 mg/Dextrose 500 ml @ 30 mls/hr TITRATE PRN IV Blood pressure management Last administered on 10/15/16 15:02; Start 10/14/16 at 18:30 ; Stop 10/15/16 at 15:36; Status DC Terbutaline Sulfate (Brethine Inj) 1 mg UNSCH PRN SQ For Extravasation; Start 10/14/16 at 18:15; Stop 10/15/16 at 08:05; Status DC Heparin Sodium (Porcine) (Heparin Inj) 5,000 units Q8HR SQ Last administered on 11/13/16 21:20; Start 10/14/16 at 22:00; Status Future Hold Isoproterenol HCl 2 mg/Dextrose 260 ml @ 23.4 mls/hr TITRATE PRN IV Hypotension Last administered on 10/14/16 21:26; Start 10/14/16 at 21:00; Stop at 16:24; Status DC Sodium Chloride 1,000 ml @ 50 mls/hr Q20H IV Last administered on 10/15/16 09: 54; Start 10/14/16 at 21:15; Stop 10/16/16 at 09:17; Status DC Phenylephrine HCl (Neosynephrine Inj) 40 mg STK-MED ONCE .ROUTE ; Start 10/14/16 at 23:30; Stop 10/14/16 at 23:31; Status DC Phenylephrine HCl (Neosynephrine Inj) 10 mg STK-MED ONCE .ROUTE ; Start 10/14/16 at 23:31; Stop 10/14/16 at 23:32; Status DC Epinephrine HCl 2 mg/Dextrose 252 ml @ 22.68 mls/ hr TITRATE PRN IV Blood Pressure Management Last administered on 10/15/16 15:03; Start 10/15/16 at 02:00 ; Stop 10/15/16 at 14:54; Status DC Epinephrine HCl (Adrenalin (1:1000) Inj) 2 mg STK-MED ONCE .ROUTE ; Start at 01:59; Stop 10/15/16 at 02:00; Status DC Lorazepam (Ativan Inj) 2 mg STK-MED ONCE .ROUTE ; Start 10/15/16 at 02:13; Stop 10/15/16 at 02:14; Status DC Epoprostenol Sodium 75 ml/ Sodium Chloride 100 ml @ 8 mls/hr Q8H NEB Last administered on 10/21/16 15:25; Start 10/15/16 at 03:00; Stop 10/21/16 at 16:05; Status DC Lorazepam (Ativan Inj) 2 mg ONCE ONCE IV PUSH Last administered on 10/15/16 03 :33; Start 10/15/16 at 02:30; Stop 10/15/16 at 02:37; Status DC Fosphenytoin Sodium 1000 mgpe/ Sodium Chloride 70 ml @ 280 mls/hr ONCE ONCE IV Last administered on 10/15/16 03:32; Start 10/15/16 at 02:30; Stop 10/15/16 at 02:44; Status DC Fosphenytoin Sodium (Cerebyx Inj) 100 mgpe Q8HR IV Last administered on 06:28; Start 10/15/16 at 10:00; Stop 10/25/16 at 14:25; Status DC Calcium Chloride 1 gm/Sodium Chloride 110 ml @ 110 mls/hr ONCE ONCE IV Last administered on 10/15/16 03:52; Start 10/15/16 at 03:15; Stop 10/15/16 at 04:14; Status DC Pharmacy Profile Note 0 ml @ 0 mls/hr UNSCH OTHER ; Start 10/15/16 at 03:30; Stop 10/18/16 at 07:20; Status DC Cefepime HCl 2000 mg/Sodium Chloride 100 ml @ 200 mls/hr Q8H IV Last administered on 10/18/16 03:34; Start 10/15/16 at 04:00; Stop 10/18/16 at 07:20; Status DC Azithromycin 500 mg/Sodium Chloride 250 ml @ 250 mls/hr Q24H IV Last administered on 10/18/16 03:34; Start 10/15/16 at 04:00; Stop 10/18/16 at 07:20; Status DC Albuterol/ Ipratropium (Duoneb Neb) 1 ampule Q4HR WHILE AWAKE NEB NEB Last administered on 10/18/16 20:21; Start 10/15/16 at 08:00; Stop 10/19/16 at 07:59; Status DC Vancomycin HCl 1000 mg/Sodium Chloride 250 ml @ 250 mls/hr ONCE ONCE IV Last administered on 10/15/16 07:02; Start 10/15/16 at 05:00; Stop 10/15/16 at 05:59; Status DC Hydrocortisone Sodium Succinate (SoluCORTEF INJ) 100 mg Q8H IV PUSH Last administered on 10/22/16 04:34; Start 10/15/16 at 04:00; Stop 10/22/16 at 10:29; Status DC Phenylephrine HCl (Neosynephrine Inj) 20 mg STK-MED ONCE .ROUTE ; Start 10/15/16 at 04:35; Stop 10/15/16 at 04:36; Status DC Sodium Chloride 500 ml @ 30 mls/hr CONTINUOUS IV Last administered on 11:43; Start 10/15/16 at 08:00; Stop 10/22/16 at 10:29; Status DC Calcium Gluconate 2 gm/Sodium Chloride 120 ml @ 120 mls/hr ONCE ONCE IV Last administered on 10/15/16 09:26; Start 10/15/16 at 09:00; Stop 10/15/16 at 09:59; Status DC Albumin Human (Albumin 5% Inj) 12.5 gm STK-MED ONCE IV Last administered on 10/15 09:17; Start 10/15/16 at 09:17; Stop 10/15/16 at 09:18; Status DC Rocuronium [place] (Zemuron Inj) 50 mg STK-MED ONCE .ROUTE Last administered on 10/15/16 09:50; Start 10/15/16 at 09:50; Stop 10/15/16 at 09:51; Status DC Vancomycin HCl 1250 mg/Sodium Chloride 262.5 ml @ 262.5 mls/ hr Q12H IV Last administered on 10/17/16 05:57; Start 10/15/16 at 18:00; Stop 10/17/16 at 09:41; Status DC Miscellaneous Information SPECIFIC LAB TO BE LI... ONCE ONCE .XX Last administered on 10/17/16 05:45; Start 10/17/16 at 05:45; Stop 10/17/16 at 05:46; Status DC Cisatracurium Besylate 100 mg/ Sodium Chloride 260 ml @ 11.24 mls/ hr TITRATE PRN IV TOF 02/16 Last administered on 10/21/16 12:59; Start 10/15/16 at 13:00; Stop 10/31/16 at 10:47; Status DC Sodium Chloride 240 meq/Syringe / Bag 60 ml @ 120 mls/hr ONCE ONCE IV Last administered on 10/15/16 13:25; Start 10/15/16 at 13:15; Stop 10/15/16 at 13:44; Status DC Sodium Chloride (Sodium Chloride) 3 gm TID PO Last administered on 11/04/16 10 :18; Start 10/15/16 at 13:15; Stop 11/04/16 at 11:21; Status DC Fludrocortisone Acetate (Florinef) 0.2 mg BID PO Last administered on 10/16/16 08:12; Start 10/15/16 at 21:00; Stop 10/16/16 at 09:12; Status DC Epinephrine HCl 2 mg/Dextrose 252 ml @ 22.68 mls/ hr TITRATE PRN IV Blood Pressure Management; Start 10/15/16 at 15:00; Stop 10/15/16 at 15:32; Status DC Norepinephrine Bitartrate 4 mg/ Sodium Chloride 250 ml @ 7.5 mls/hr TITRATE PRN IV Blood pressure management; Start 10/15/16 at 15:00; Stop 10/15/16 at 15:56 ; Status DC Sodium Chloride 240 meq/Syringe / Bag 60 ml @ 120 mls/hr ONCE ONCE IV Last administered on 10/15/16 15:33; Start 10/15/16 at 15:30; Stop 10/15/16 at 15:59; Status DC Epinephrine HCl 8 mg/Dextrose 250 ml @ 5.62 mls/hr TITRATE PRN IV Blood Pressure Management Last administered on 10/17/16 08:30; Start 10/15/16 at 15:30 ; Stop 10/17/16 at 10:08; Status DC Phenylephrine HCl 160 mg/Dextrose 500 ml @ 7.5 mls/hr TITRATE PRN IV Blood Pressure Management Last administered on 10/18/16 09:34; Start 10/15/16 at 15:45 ; Stop 10/17/16 at 10:08; Status DC Terbutaline Sulfate (Brethine Inj) 1 mg UNSCH PRN SQ FOR EXTRAVASATION PROTOCOL ; Start 10/15/16 at 15:45; Stop 11/01/16 at 07:51; Status DC Norepinephrine Bitartrate 16 mg/ Sodium Chloride 250 ml @ 1.87 mls/hr TITRATE PRN IV Blood pressure management Last administered on 10/17/16 09:11; Start 10/15 at 16:00; Stop 10/17/16 at 10:08; Status DC Calcium Gluconate 3 gm/Sodium Chloride 130 ml @ 120 mls/hr ONCE ONCE IV Last administered on 10/16/16 09:48; Start 10/16/16 at 10:00; Stop 10/16/16 at 11:04; Status DC Sodium Chloride 240 meq/Syringe / Bag 60 ml @ 120 mls/hr ONCE ONCE IV Last administered on 10/16/16 09:48; Start 10/16/16 at 10:00; Stop 10/16/16 at 10:29; Status DC Magnesium Oxide (Mag-Ox) 800 mg UNSCH PRN PO For Magnesium 1.2 - 1.6 mg/dL; Start 10/16/16 at 09:15; Stop 11/25/16 at 09:51; Status DC Magnesium Sulfate 4 gm/Sodium Chloride 100 ml @ 50 mls/hr UNSCH PRN IV For Magnesium 0.9 - 1.1 mg/dL; Start 10/16/16 at 09:15; Stop 11/25/16 at 09:51; Status DC Magnesium Sulfate 2 gm/Sodium Chloride 100 ml @ 50 mls/hr UNSCH PRN IV For Magnesium 1.2 - 1.6 mg/dL; Start 10/16/16 at 09:15; Stop 11/25/16 at 09:51; Status DC Potassium Chloride 100 ml @ 50 mls/hr Q2H PRN IV For Potassium 2.8 - 3.2 mEq/ L Last administered on 11/15/16 12:36; Start 10/16/16 at 09:15; Stop 11/25/16 at 09:51; Status DC Potassium Chloride 100 ml @ 50 mls/hr Q2H PRN IV For Potassium 3.3 - 3.5 mEq/L ; Start 10/16/16 at 09:15; Stop 11/25/16 at 09:51; Status DC Potassium Chloride 100 ml @ 50 mls/hr Q2H PRN IV For Potassium 2.8 - 3.2 mEq/ L Last administered on 10/27/16 13:26; Start 10/16/16 at 09:15; Stop 11/25/16 at 09:51; Status DC Potassium Chloride 100 ml @ 25 mls/hr UNSCH PRN IV For Potassium 3.3 - 3.5 mEq /L Last administered on 10/30/16 06:06; Start 10/16/16 at 09:15; Stop 11/25/16 at 09:51; Status DC Potassium Phosphate (K-Phos) 2,000 mg Q4H PRN PO For Phosphorus < 2.5 mg/dL; Start 10/16/16 at 09:15; Stop 11/25/16 at 09:51; Status DC Potassium Phosphate (K-Phos) 2,000 mg UNSCH PRN PO/TUBE SEE LABEL COMMENTS; Start 10/16/16 at 09:15; Stop 11/25/16 at 09:51; Status DC Potassium Phosphate 30 mmol/ Sodium Chloride 260 ml @ 42 mls/hr UNSCH PRN IV SEE LABEL COMMENTS Last administered on 10/24/16 20:39; Start 10/16/16 at 09:15 ; Stop 11/25/16 at 09:51; Status DC Sodium Phosphate 30 mmol/Sodium Chloride 250 ml @ 42 mls/hr UNSCH PRN IV For Phosphorus < 2.5 mg/dL Last administered on 10/22/16 06:46; Start 10/16/16 at 09: 15; Stop 11/25/16 at 09:51; Status DC Furosemide (Lasix Inj) 40 mg STK-MED ONCE .ROUTE Last administered on 10/16/16 13:27; Start 10/16/16 at 13:27; Stop 10/16/16 at 13:28; Status DC Vancomycin HCl 1250 mg/Sodium Chloride 262.5 ml @ 250 mls/hr Q8H IV Last administered on 10/18/16 06:10; Start 10/17/16 at 14:00; Stop 10/18/16 at 07:20; Status DC Miscellaneous Information SPECIFIC LAB TO BE LI... ONCE ONCE .XX Last administered on 10/18/16 05:45; Start 10/18/16 at 05:45; Stop 10/18/16 at 05:46; Status DC Sodium Chloride 1,000 ml @ 999 mls/hr BOLUS ONCE IV Last administered on 10:45; Start 10/17/16 at 11:00; Stop 10/17/16 at 12:00; Status DC Epinephrine HCl 8 mg/Dextrose 250 ml @ 5.62 mls/hr TITRATE PRN IV Blood Pressure Management; Start 10/17/16 at 10:15; Status Cancel Norepinephrine Bitartrate 16 mg/ Sodium Chloride 250 ml @ 1.87 mls/hr TITRATE PRN IV Blood pressure management Last administered on 10/20/16 01:07; Start 10/17 at 10:15; Stop 10/31/16 at 10:47; Status DC Phenylephrine HCl 160 mg/Dextrose 500 ml @ 7.5 mls/hr TITRATE PRN IV Blood Pressure Management Last administered on 10/23/16 14:21; Start 10/17/16 at 10:15 ; Stop 10/29/16 at 11:49; Status DC Epinephrine HCl 8 mg/Dextrose 250 ml @ 5.62 mls/hr TITRATE PRN IV Blood Pressure Management Last administered on 10/20/16 15:14; Start 10/17/16 at 11:15 ; Stop 10/29/16 at 11:49; Status DC Heparin Sodium (Porcine) (*HEPARIN INJ Periprocedural ONLY) 10,000 units STK- MED ONCE .ROUTE Last administered on 10/17/16 14:54; Start 10/17/16 at 14:54; Stop 10/17/16 at 14:55; Status DC Verapamil HCl (Isoptin Inj) 20 mg STK-MED ONCE .ROUTE Last administered on 15:34; Start 10/17/16 at 15:34; Stop 10/17/16 at 15:35; Status DC Iodixanol (VISIPAQUE 320 INJ (Rad Spec)) 40 ml STK-MED ONCE I-ARTERIAL Last administered on 10/17/16 16:00; Start 10/17/16 at 16:31; Stop 10/17/16 at 16:32; Status DC Sodium Chloride 1,000 ml @ 100 mls/hr Q10H IV Last administered on 10/18/16 03 :35; Start 10/17/16 at 18:00; Stop 10/18/16 at 07:06; Status DC Potassium Chloride (KCl Powder) 60 meq ONCE ONCE NG Last administered on 08:52; Start 10/18/16 at 09:00; Stop 10/18/16 at 09:01; Status DC Calcium Gluconate 1 gm/Sodium Chloride 110 ml @ 110 mls/hr UNSCH PRN IV For Protein Corrected Calcium Last administered on 10/18/16 10:22; Start 10/18/16 at 09:45; Stop 12/27/16 at 11:31; Status DC Gentamicin Sulfate (Gentamicin Inj) 240 mg STK-MED ONCE IRRIGATION ; Start 10/07 at 12:00; Stop 10/18/16 at 12:13; Status DC Thrombin (Thrombin Top Soln) 5,000 units STK-MED ONCE TOPICAL ; Start 10/07/16 at 12:00; Stop 10/18/16 at 12:13; Status DC Gelatin (Gelfoam 100 Top) 1 foam STK-MED ONCE OTHER ; Start 10/07/16 at 12:00; Stop 10/18/16 at 12:13; Status DC Propofol (Diprivan 200 Mg/20 ml Inj) 200 mg STK-MED ONCE IV ; Start 10/07/16 at 12:00; Stop 10/18/16 at 12:16; Status DC Ephedrine Sulfate (ePHEDrine/NS 25 MG/5 ML SYR) 25 mg STK-MED ONCE IV ; Start at 12:00; Stop 10/18/16 at 12:16; Status DC Phenylephrine HCl (Neosynephrine/ NS 1000 Mcg/10ml Syr) 1,000 mcg STK-MED ONCE IV ; Start 10/07/16 at 12:00; Stop 10/18/16 at 12:16; Status DC Lactated Ringer's 1,000 ml @ As Directed STK-MED ONCE IV ; Start 10/07/16 at 12 :00; Stop 10/18/16 at 12:16; Status DC Milrinone Lactate 20 mg/Sodium Chloride 100 ml @ 12.42 mls/ hr Q8H4M IV Last administered on 10/22/16 09:23; Start 10/18/16 at 16:21; Stop 10/22/16 at 19:37; Status DC Lansoprazole (Prevacid Odt) 30 mg DAILY NG Last administered on 12/16/16 08:54 ; Start 10/20/16 at 09:00; Stop 12/16/16 at 15:01; Status DC Lansoprazole (Prevacid Odt) 30 mg ONCE ONCE NG Last administered on 10/19/16 12:11; Start 10/19/16 at 12:00; Stop 10/19/16 at 12:02; Status DC Sodium Chloride (NS Flush) 2 ml UNSCH PRN IV FLUSH FLUSH AFTER USING IV ACCESS ; Start 10/19/16 at 09:45; Stop 12/27/16 at 11:24; Status DC Sodium Chloride (NS Flush) 2 ml BID IV FLUSH Last administered on 12/26/16 22 :03; Start 10/19/16 at 21:00; Stop 12/27/16 at 11:24; Status DC Artificial Tears (Tears Naturale Opth Soln) 1 drop TID EACH EYE Last administered on 01/23/17 09:49; Start 10/19/16 at 13:00 Ondansetron HCl (Zofran Inj) 4 mg Q6H PRN IV NAUSEA OR VOMITING; Start 10/19/16 at 09:45; Status UNV Albuterol/ Ipratropium (Duoneb Neb) 1 ampule Q6HR NEB INH Last administered on 10/23/16 08:36; Start 10/19/16 at 12:00; Stop 10/23/16 at 11:59; Status DC Albuterol Sulfate (Albuterol Neb) 2.5 mg Q2HR NEB PRN INH SOB/WHEEZING Last administered on 11/22/16 22:09; Start 10/19/16 at 09:45 Miscellaneous Information 1 [id number] ; Start 10/19/16 at 09:45; Stop 01/13/17 at 12:47; Status DC Chlorhexidine Gluconate (Chlorhexidine 2% Cloth) Taper DAILY@04 TOP Last administered on 12/24/16 04:00; Start 10/20/16 at 04:00; Stop 01/13/17 at 12:47 ; Status DC Chlorhexidine Gluconate (Chlorhexidine 2% Cloth) 3 pack UNSCH PRN TOP HYGIENIC CARE; Start 10/19/16 at 09:45; Stop 01/13/17 at 12:47; Status DC Docusate Sodium (Colace Liq) 100 mg Q12HR PO Last administered on 10/30/16 07: 55; Start 10/19/16 at 21:00; Stop 10/31/16 at 10:47; Status DC Sennosides (Senna Liq) 8.8 mg BID PO Last administered on 10/29/16 20:15; Start 10/19/16 at 21:00; Stop 10/31/16 at 10:47; Status DC Polyethylene Glycol (Miralax) 17 gm BID OG-TUBE Last administered on 10/29/16 20:15; Start 10/19/16 at 21:00; Stop 10/31/16 at 10:47; Status DC Pharmacy Profile Note 0 ml @ 0 mls/hr UNSCH OTHER ; Start 10/19/16 at 10:15; Stop 10/24/16 at 11:41; Status DC Piperacillin Sod/ Tazobactam Sod 100 ml @ 200 mls/hr Q6H IV Last administered on 10/23/16 05:39; Start 10/19/16 at 12:00; Stop 10/23/16 at 09:43; Status DC Vancomycin HCl 1500 mg/Sodium Chloride 515 ml @ 257.5 mls/ hr Q8H IV Last administered on 10/22/16 04:38; Start 10/19/16 at 13:00; Stop 10/22/16 at 13:55; Status DC Miscellaneous Information SPECIFIC LAB TO BE DRAWN:VANCOMYCIN TROUGH DATE TO... ONCE ONCE .XX Last administered on 10/20/16 12:45; Start 10/20/16 at 12:45; Stop 10/20/16 at 12:46; Status DC Verapamil HCl (Isoptin Inj) 5 mg STK-MED ONCE .ROUTE ; Start 10/19/16 at 12:44; Stop 10/19/16 at 12:45; Status DC Verapamil HCl (Isoptin Inj) 15 mg STK-MED ONCE .ROUTE ; Start 10/19/16 at 12:44; Stop 10/19/16 at 12:45; Status DC Iodixanol (VISIPAQUE 320 INJ (Rad Spec)) 30 ml STK-MED ONCE I-ARTERIAL Last administered on 10/19/16 13:50; Start 10/19/16 at 14:05; Stop 10/19/16 at 14:06; Status DC Lactulose (Lactulose Liq) 30 ml BID OG-TUBE Last administered on 10/31/16 20: 30; Start 10/20/16 at 21:00; Stop 11/01/16 at 07:51; Status DC Mineral Oil (Kondremul Liq) 30 ml ONCE ONCE PO ; Start 10/20/16 at 09:15; Stop 10/20/16 at 09:16; Status Cancel Methylnaltrexone [place] (Relistor Inj) 12 mg ONCE ONCE SQ Last administered on 10/20/16 14:17; Start 10/20/16 at 09:15; Stop 10/20/16 at 09:39; Status DC Insulin Aspart (NovoLOG SUPPLEMENTAL SCALE) 1 Q4HR SQ Last administered on 10/27 11:57; Start 10/20/16 at 12:00; Stop 11/03/16 at 12:42; Status DC Multivitamins 10 ml/Folic Acid 1 mg/Amino Acids/ Electrolytes/ Dextrose 2,010.2 ml @ 30 mls/hr Q24H IV-CENTRAL Last administered on 10/28/16 20:01; Start 10/20/16 at 20:00; Stop 10/31/16 at 10:47; Status DC Fat Emulsion Intravenous 250 ml @ 10 mls/hr Q24H IV-CENTRAL Last administered on 10/29/16 19:58; Start 10/20/16 at 20:00; Stop 10/31/16 at 10:47; Status DC Mineral Oil (Mineral Oil Liq) 30 ml ONCE ONCE PO ; Start 10/20/16 at 14:00; Stop 10/20/16 at 14:01; Status Cancel Mineral Oil (Mineral Oil Liq) 30 ml ONCE ONCE PO Last administered on 15:32; Start 10/20/16 at 14:00; Stop 10/20/16 at 14:01; Status DC Potassium Phosphate 30 mmol/ Sodium Chloride 260 ml @ 43.333 mls/ hr ONCE ONCE IV ; Start 10/20/16 at 18:00; Stop 10/20/16 at 23:59; Status DC Potassium Chloride 100 ml @ 25 mls/hr BOLUS ONCE IV Last administered on 17:17; Start 10/20/16 at 17:00; Stop 10/20/16 at 20:59; Status DC Miscellaneous Information SPECIFIC LAB TO BE LI... ONCE ONCE .XX Last administered on 10/22/16 12:45; Start 10/22/16 at 12:45; Stop 10/22/16 at 12:46; Status DC Diltiazem HCl 125 mg/Sodium Chloride 125 ml @ 5 mls/hr TITRATE PRN IV Tachycardia Last administered on 10/27/16 08:13; Start 10/22/16 at 10:30; Stop 10/28/16 at 18:49; Status DC Hydrocortisone Sodium Succinate (SoluCORTEF INJ) 75 mg Q8H IV PUSH Last administered on 10/24/16 04:05; Start 10/22/16 at 12:00; Stop 10/24/16 at 09:40 ; Status DC Milrinone Lactate 20 mg/Sodium Chloride 100 ml @ 9.79 mls/hr [id number] IV Last administered on 10/30/16 03:35; Start 10/22/16 at 10:23; Stop 11/01/16 at 07:51 ; Status DC Furosemide (Lasix Inj) 40 mg NOW ONCE IV PUSH Last administered on 10/22/16 14 :46; Start 10/22/16 at 14:30; Stop 10/22/16 at 14:31; Status DC Furosemide 100 mg/ Sodium Chloride 100 ml @ 10 mls/hr CONTINUOUS IV Last administered on 10/24/16 01:16; Start 10/22/16 at 15:00; Stop 10/24/16 at 11:17 ; Status DC Vancomycin HCl 1500 mg/Sodium Chloride 515 ml @ 257.5 mls/ hr Q12H IV Last administered on 10/23/16 08:32; Start 10/23/16 at 09:00; Stop 10/23/16 at 09:43 ; Status DC Potassium Chloride 100 ml @ 25 mls/hr Q4H IV Last administered on 10/22/16 18: 05; Start 10/22/16 at 15:00; Stop 10/22/16 at 22:59; Status DC Miscellaneous Information SPECIFIC LAB TO BE LI... ONCE ONCE .XX ; Start 10/25 at 08:45; Stop 10/25/16 at 08:45; Status DC Potassium Chloride 100 ml @ 25 mls/hr Q4H IV Last administered on 10/23/16 19 :46; Start 10/23/16 at 18:30; Stop 10/24/16 at 02:29; Status DC Hydrocortisone Sodium Succinate (SoluCORTEF INJ) 50 mg Q12H IV PUSH Last administered on 10/25/16 04:42; Start 10/24/16 at 16:00; Stop 10/25/16 at 08:37 ; Status DC Insulin Detemir (Levemir Inj) 12 units Q12HR SQ Last administered on 10/28/16 09:23; Start 10/24/16 at 09:45; Stop 10/28/16 at 18:30; Status DC Furosemide 100 mg/ Sodium Chloride 100 ml @ 5 mls/hr CONTINUOUS IV Last administered on 10/27/16 08:12; Start 10/24/16 at 12:00; Stop 10/27/16 at 08:59 ; Status DC Hydrocortisone Sodium Succinate (SoluCORTEF INJ) 25 mg Q12H IV PUSH Last administered on 10/27/16 04:14; Start 10/25/16 at 16:00; Stop 10/27/16 at 08:59 ; Status DC Acetazolamide Sodium (Diamox Inj) 500 mg DAILY IV PUSH Last administered on 08:15; Start 10/25/16 at 09:00; Stop 10/28/16 at 03:25; Status DC Phenytoin Sodium (Dilantin Inj) 100 mg Q8HR IV Last administered on 11/01/16 05:30; Start 10/25/16 at 22:00; Stop 11/01/16 at 07:52; Status DC Furosemide (Lasix Inj) 40 mg DAILY IV PUSH Last administered on 11/09/16 09:11 ; Start 10/28/16 at 09:00; Stop 11/09/16 at 10:18; Status DC Sodium Chloride 1,000 ml @ 30 mls/hr Q24H IV Last administered on 10/28/16 19 :30; Start 10/28/16 at 05:45; Stop 10/29/16 at 11:49; Status DC Dextrose (D50w (Syr) Inj) 50 ml STK-MED ONCE .ROUTE ; Start 10/28/16 at 17:41; Stop 10/28/16 at 17:42; Status DC Insulin Detemir (Levemir Inj) 8 units Q12HR SQ Last administered on 10/29/16 08:28; Start 10/28/16 at 21:00; Stop 11/01/16 at 14:52; Status DC Protein (Beneprotein Powder) 1 pack TID G-TUBE Last administered on 12/14/16 12:08; Start 10/29/16 at 13:00; Stop 12/14/16 at 13:57; Status DC Diltiazem HCl (Cardizem) 60 mg Q6HR PO Last administered on 11/02/16 04:46; Start 10/29/16 at 13:00; Stop 11/02/16 at 07:19; Status DC Levetriacetam (Keppra Liq) 500 mg Q12HR NG Last administered on 12/26/16 22: 02; Start 10/31/16 at 21:00; Stop 12/27/16 at 15:58; Status DC Cisatracurium Besylate (Nimbex Inj) 20 mg ONCE ONCE IV ; Start 11/01/16 at 07: 45; Stop 11/01/16 at 07:55; Status DC Midazolam HCl (Versed Inj) 10 mg ONCE ONCE IV PUSH Last administered on 11:36; Start 11/01/16 at 07:45; Stop 11/01/16 at 07:53; Status DC Fentanyl Citrate (fentaNYL INJ) 250 mcg ONCE ONCE IV PUSH Last administered on 11/01/16 11:37; Start 11/01/16 at 07:45; Stop 11/01/16 at 07:53; Status DC Lactulose (Lactulose Liq) 30 ml QID OG-TUBE Last administered on 11/11/16 12: 28; Start 11/01/16 at 09:00; Stop 11/12/16 at 08:36; Status DC Phenytoin (Dilantin Liq) 100 mg Q8HR PO Last administered on 11/06/16 06:34; Start 11/01/16 at 14:00; Stop 11/06/16 at 12:28; Status DC Cisatracurium Besylate (Nimbex Inj) 20 mg ONCE ONCE IV Last administered on 11:36; Start 11/01/16 at 09:15; Stop 11/01/16 at 09:16; Status DC Oxycodone HCl (Roxicodone Intensol Liq) 10 mg Q4H PRN PO pain 1-6 Last administered on 11/11/16 02:28; Start 11/01/16 at 15:00; Stop 11/24/16 at 11: 19; Status DC Hydromorphone HCl (Dilaudid Pf Inj) 0.5 mg Q4H PRN IV PUSH pain 7-10 or not taking po Last administered on 11/19/16 01:42; Start 11/01/16 at 15:00; Stop 11/29/16 at 12:24; Status DC Haloperidol Lactate (Haldol Inj) 5 mg Q4H PRN IV PUSH agitation; Start at 15:00; Stop 11/29/16 at 14:45; Status DC Melatonin (Melatonin) 5 mg HS PO Last administered on 01/30/17 21:04; Start 11/01/16 at 21:00 Diltiazem HCl (Cardizem) 90 mg Q6HR PO Last administered on 01/31/17 00:44; Start 11/02/16 at 12:00 Pharmacy Profile Note 0 ml @ 0 mls/hr UNSCH OTHER ; Start 11/02/16 at 15:30; Stop 11/06/16 at 15:48; Status DC Vancomycin HCl 1250 mg/Sodium Chloride 262.5 ml @ 250 mls/hr Q8H IV Last administered on 11/04/16 02:20; Start 11/02/16 at 18:00; Stop 11/05/16 at 16:14 ; Status DC Cefepime HCl 2000 mg/Sodium Chloride 100 ml @ 200 mls/hr Q8H IV Last administered on 11/06/16 08:42; Start 11/02/16 at 17:00; Stop 11/06/16 at 15:48 ; Status DC Metronidazole 100 ml @ 100 mls/hr Q6H IV Last administered on 11/04/16 09:26 ; Start 11/02/16 at 16:00; Stop 11/04/16 at 11:21; Status DC Miscellaneous Information SPECIFIC LAB TO BE DRAWN:VANCOMYCIN TROUGH DATE TO... ONCE ONCE .XX ; Start 11/03/16 at 17:45; Stop 11/03/16 at 17:46; Status DC Insulin Aspart (NovoLOG SUPPLEMENTAL SCALE) 1 Q12H SQ Last administered on 11/04 00:42; Start 11/03/16 at 12:00; Stop 11/12/16 at 08:40; Status DC Potassium Chloride 100 ml @ 50 mls/hr Q2H IV ; Start 11/03/16 at 15:00; Stop at 16:58; Status DC Miscellaneous Information SPECIFIC LAB TO BE DRAWN:VANCOMYCIN TROUGH DATE TO... ONCE ONCE .XX Last administered on 11/04/16 01:45; Start 11/04/16 at 01:45; Stop 11/04/16 at 01:46; Status DC Sodium Chloride 1,000 ml @ 84 mls/hr [id number] IV Last administered on 13:02; Start 11/04/16 at 11:15; Stop 11/05/16 at 11:14; Status DC Vancomycin HCl 1250 mg/Sodium Chloride 262.5 ml @ 250 mls/hr Q12H IV Last administered on 11/06/16 06:34; Start 11/05/16 at 18:00; Stop 11/06/16 at 15:48 ; Status DC Miscellaneous Information SPECIFIC LAB TO BE ... ONCE ONCE .XX ; Start 11/07 at 05:45; Stop 11/07/16 at 05:45; Status DC Aztreonam 1000 mg/ Sodium Chloride 100 ml @ 200 mls/hr Q8H IV Last administered on 11/08/16 08:00; Start 11/06/16 at 16:00; Stop 11/08/16 at 12:55 ; Status DC Lactobacillus Acidophilus (Lactinex) 1 tab TID PO Last administered on 12:16; Start 11/06/16 at 18:00; Stop 12/14/16 at 13:57; Status DC Fluconazole (Diflucan) 100 mg DAILY PO Last administered on 11/16/16 09:23; Start 11/06/16 at 16:00; Stop 11/16/16 at 13:20; Status DC Norepinephrine Bitartrate (Levophed Inj) 4 mg STK-MED ONCE .ROUTE ; Start at 02:02; Stop 11/07/16 at 02:03; Status DC Chlorhexidine Gluconate (Hibiclens 4% Top Soln) 1 applic HS TOP Last administered on 11/07/16 23:28; Start 11/07/16 at 21:00; Stop 11/08/16 at 09:58 ; Status DC Prednisone (Deltasone) 20 mg BID PO Last administered on 11/09/16 21:08; Start 11/08/16 at 13:00; Stop 11/09/16 at 21:01; Status DC Levofloxacin (Levaquin) 750 mg DAILY PO Last administered on 11/15/16 08:23; Start 11/08/16 at 13:00; Stop 11/15/16 at 12:59; Status DC Furosemide (Lasix Liq) 20 mg DAILY NG Last administered on 12/01/16 08:38; Start 11/09/16 at 10:30; Stop 12/02/16 at 09:49; Status DC Cefazolin Sodium 1000 mg/Sodium Chloride 100 ml @ 200 mls/hr NOW ONCE IV ; Start 11/12/16 at 15:30; Stop 11/12/16 at 15:59; Status DC Water (Free Water) 200 ml Q6HR G-TUBE Last administered on 11/15/16 18:00; Start 11/14/16 at 18:45; Stop 11/15/16 at 18:50; Status DC Potassium Bicarb/ Potassium Chloride (K-Lyte Cl Eff) 50 meq NOW ONCE PO Last administered on 11/15/16 10:44; Start 11/15/16 at 08:30; Stop 11/15/16 at 08:31 ; Status DC Water (Free Water) 300 ml Q4HR G-TUBE Last administered on 11/20/16 16:00; Start 11/15/16 at 20:00; Stop 11/21/16 at 20:04; Status DC Acetylcysteine (Mucomyst 20% Neb) 2 ml Q6HR NEB NEB Last administered on 04:24; Start 11/16/16 at 10:00; Stop 11/20/16 at 09:59; Status DC Albuterol/ Ipratropium (Duoneb Neb) 1 ampule Q6HR NEB NEB Last administered on 11/20/16 08:04; Start 11/16/16 at 10:00; Stop 11/20/16 at 09:59; Status DC Metoclopramide HCl (Reglan Inj) 10 mg Q8H IV PUSH Last administered on 09:40; Start 11/18/16 at 02:00; Stop 12/02/16 at 09:51; Status DC Ondansetron HCl (Zofran Inj) 4 mg Q6H PRN IV PUSH nausea; Start 11/18/16 at 01: 45; Stop 12/27/16 at 11:33; Status DC Sodium Chloride 1,000 ml @ 999 mls/hr BOLUS ONCE IV Last administered on 11/18 01:58; Start 11/18/16 at 02:00; Stop 11/18/16 at 03:00; Status DC Bacitracin (Baciguent Oint) 1 applic Q12HR TOPICAL Last administered on 21:05; Start 11/18/16 at 11:00 Levofloxacin (Levaquin) 750 mg DAILY PO Last administered on 11/25/16 09:19; Start 11/18/16 at 12:00; Stop 11/25/16 at 11:59; Status DC Sodium Chloride 1,000 ml @ 75 mls/hr [id number] IV Last administered on 01:08; Start 11/18/16 at 13:00; Stop 11/19/16 at 12:59; Status DC Protein (Beneprotein Powder) 1 pack TID G-TUBE Last administered on 01/10/17 18:00; Start 11/19/16 at 09:00; Stop 01/13/17 at 12:47; Status DC Water (Free Water) VOLUME OF WATER: 200 ML Q6HR G-TUBE Last administered on 18:00; Start 11/22/16 at 00:00; Stop 11/26/16 at 18:43; Status DC Albuterol/ Ipratropium (Duoneb Neb) 1 ampule QID NEB NEB Last administered on 11/27/16 11:55; Start 11/23/16 at 16:00; Stop 11/27/16 at 15:59; Status DC Povidone Iodine (Betadine 10% Oint) 1 applic DAILY TOPICAL Last administered on 12/23/16 09:00; Start 11/24/16 at 09:00; Stop 12/24/16 at 12:51; Status DC Oxycodone HCl (Roxicodone Intensol Liq) 10 mg Q4H PRN PO PAIN SCALE 1 TO 6; Start 11/24/16 at 11:30; Stop 11/29/16 at 14:38; Status DC Midazolam HCl (Versed Inj) 5 mg STK-MED ONCE .ROUTE Last administered on 16:24; Start 11/26/16 at 16:24; Stop 11/26/16 at 16:25; Status DC Rocuronium [place] (Zemuron Inj) 100 mg STK-MED ONCE .ROUTE Last administered on 11/26/16 18:19; Start 11/26/16 at 16:24; Stop 11/26/16 at 16:25; Status DC Propofol 50 ml @ As Directed STK-MED ONCE .ROUTE Last administered on 18:29; Start 11/26/16 at 16:53; Stop 11/26/16 at 16:54; Status DC Chlorhexidine Gluconate (Peridex 0.12% Liq) 15 ml BID@08,20 MT Last administered on 01/28/17 20:00; Start 11/26/16 at 20:00 Propofol 100 ml @ 1.668 mls/ hr TITRATE PRN IV SEDATION Last administered on 11/26/16 21:29; Start 11/26/16 at 18:45; Stop 12/12/16 at 16:47; Status DC Fentanyl Citrate (fentaNYL INJ) 100 mcg Q1H PRN IV PUSH any pain; Start at 18:45; Stop 11/29/16 at 14:38; Status DC Fentanyl Citrate 250 ml @ 5 mls/hr TITRATE PRN IV SEDATION Last administered on 11/29/16 06:30; Start 11/26/16 at 18:45; Stop 12/12/16 at 16:47; Status DC Propofol 50 ml @ As Directed STK-MED ONCE .ROUTE Last administered on 18:47; Start 11/26/16 at 18:43; Stop 11/26/16 at 18:44; Status DC Cisatracurium Besylate (Nimbex Inj) 11 mg ONCE ONCE IV PUSH Last administered on 11/26/16 19:30; Start 11/26/16 at 18:45; Stop 11/26/16 at 18:50; Status DC Cisatracurium Besylate 100 mg/ Sodium Chloride 260 ml @ 8.67 mls/hr TITRATE PRN IV TOF 1/4 Last administered on 11/28/16 06:25; Start 11/26/16 at 18:45; Stop 11/28/16 at 10:46; Status DC Epinephrine HCl (EPINEPHrine (1:10,000) INJ) 1 mg STK-MED ONCE .ROUTE ; Start 11/26/16 at 20:06; Stop 11/26/16 at 20:07; Status DC Atropine Sulfate (Atropine Inj) 1 mg STK-MED ONCE .ROUTE ; Start 11/26/16 at 20 :06; Stop 11/26/16 at 20:07; Status DC Lidocaine HCl (Xylocaine 2% Inj) 100 mg STK-MED ONCE .ROUTE ; Start 11/26/16 at 20:07; Stop 11/26/16 at 20:08; Status DC Iohexol (Omnipaque 350 Inj) 95 ml STK-MED ONCE IVCONTRAST Last administered on 11/26/16 20:20; Start 11/26/16 at 20:20; Stop 11/26/16 at 20:21; Status DC Lactated Ringer's 1,000 ml @ 84 mls/hr [id number] IV ; Start 11/26/16 at 23:00; Stop 11/27/16 at 01:37; Status DC Sodium Chloride 500 ml @ 50 mls/hr Q10H IV Last administered on 11/27/16 01: 50; Start 11/27/16 at 01:45; Stop 11/27/16 at 11:44; Status DC Midazolam HCl 100 ml @ 2 mls/hr TITRATE PRN IV SEDATION Last administered on 22:12; Start 11/27/16 at 01:45; Stop 11/29/16 at 14:45; Status DC Midazolam HCl (Versed Inj) 2 mg Q15M PRN IV PUSH SEDATION; Start 11/27/16 at 01:45; Stop 11/29/16 at 14:45; Status DC Lactated Ringer's 1,000 ml @ 84 mls/hr [id number] IV Last administered on 01:17; Start 11/27/16 at 03:15; Stop 12/02/16 at 07:00; Status DC Cisatracurium Besylate 100 mg/ Sodium Chloride 250 ml @ 8.34 mls/hr TITRATE PRN IV TOF 1/4 Last administered on 11/28/16 11:11; Start 11/28/16 at 11:00; Stop 11/28/16 at 14:11; Status DC Sodium Chloride 250 ml @ 15 mls/hr ONCE ONCE IV Last administered on 11:15; Start 11/28/16 at 11:15; Stop 11/29/16 at 03:54; Status DC Epinephrine HCl (EPINEPHrine (1:10,000) INJ) 1 mg STK-MED ONCE .ROUTE ; Start 11/29/16 at 04:20; Stop 11/29/16 at 04:21; Status DC Atropine Sulfate (Atropine Inj) 1 mg STK-MED ONCE .ROUTE ; Start 11/29/16 at 04 :20; Stop 11/29/16 at 04:21; Status DC Lidocaine HCl (Xylocaine 2% Inj) 100 mg STK-MED ONCE .ROUTE ; Start 11/29/16 at 04:20; Stop 11/29/16 at 04:21; Status DC Iohexol (Omnipaque 350 Inj) 70 ml STK-MED ONCE IVCONTRAST Last administered on 11/29/16 05:14; Start 11/29/16 at 05:14; Stop 11/29/16 at 05:15; Status DC Epinephrine HCl (EPINEPHrine (1:10,000) INJ) 1 mg STK-MED ONCE .ROUTE ; Start 11/29/16 at 06:45; Stop 11/29/16 at 06:46; Status DC Epinephrine HCl (EPINEPHrine (1:10,000) INJ) 4 mg STK-MED ONCE .ROUTE ; Start 11/29/16 at 06:48; Stop 11/29/16 at 06:49; Status DC Hydromorphone HCl (Dilaudid Pf Inj) 0.5 mg Q4H PRN IV PUSH pain 7-10 or not taking po; Start 11/29/16 at 12:30; Stop 11/29/16 at 14:38; Status DC Rocuronium [place] (Zemuron Inj) 50 mg STK-MED ONCE .ROUTE Last administered on 11/29/16 12:51; Start 11/29/16 at 12:51; Stop 11/29/16 at 12:52; Status DC Rocuronium [place] (Zemuron Inj) 50 mg STK-MED ONCE .ROUTE Last administered on 11/29/16 13:30; Start 11/29/16 at 13:30; Stop 11/29/16 at 13:31; Status DC Collagenase (Santyl Oint) 1 applic DAILY TOPICAL Last administered on 09:03; Start 11/30/16 at 12:00; Stop 01/17/17 at 08:46; Status DC Albuterol/ Ipratropium (Duoneb Neb) 1 ampule Q6HR NEB NEB Last administered on 12/04/16 09:06; Start 11/30/16 at 16:00; Stop 12/04/16 at 09:12; Status DC Dextrose (D50w (Vial) Inj) 50 ml UNSCH PRN IV PUSH HYPOGLYCEMIA-SEE COMMENTS; Start 11/30/16 at 12:15; Stop 12/02/16 at 19:38; Status DC Glucagon (Glucagon Inj) 1 mg UNSCH PRN OTHER HYPOGLYCEMIA-SEE COMMENTS; Start 11/30/16 at 12:15; Stop 12/02/16 at 19:38; Status DC Insulin Human Regular (NovoLIN R SUPPLEMENTAL SCALE) 1 ACHS SLIDING SCALE SQ ; Start 11/30/16 at 17:00; Stop 12/02/16 at 09:49; Status DC Acetaminophen (Tylenol) 650 mg Q4H PRN PO PAIN OR TEMP >100.4 Last administered on 12/20/16 14:32; Start 11/30/16 at 13:15; Stop 12/27/16 at 11: 35; Status DC Magnesium Sulfate/ Dextrose 100 ml @ 100 mls/hr Q1H IV Last administered on 16:52; Start 12/01/16 at 14:00; Stop 12/01/16 at 15:59; Status DC Potassium Chloride (KCl Powder) 20 meq ONCE ONCE PO ; Start 12/01/16 at 14:00 ; Stop 12/01/16 at 14:01; Status DC Fentanyl Citrate (fentaNYL INJ) 200 mcg STK-MED ONCE .ROUTE Last administered on 12/01/16 15:00; Start 12/01/16 at 14:45; Stop 12/01/16 at 14:46; Status DC Midazolam HCl (Versed Inj) 4 mg STK-MED ONCE .ROUTE Last administered on 15:00; Start 12/01/16 at 14:45; Stop 12/01/16 at 14:46; Status DC Fentanyl Citrate (fentaNYL INJ) 100 mcg STK-MED ONCE .ROUTE Last administered on 12/01/16 15:55; Start 12/01/16 at 15:53; Stop 12/01/16 at 15:54; Status DC Midazolam HCl (Versed Inj) 2 mg STK-MED ONCE .ROUTE Last administered on 16:00; Start 12/01/16 at 15:53; Stop 12/01/16 at 15:54; Status DC Cefazolin Sodium/ Dextrose 50 ml @ As Directed STK-MED ONCE .ROUTE Last administered on 12/01/16 16:00; Start 12/01/16 at 16:03; Stop 12/01/16 at 16 :04; Status DC Iodixanol (VISIPAQUE 320 INJ (Rad Spec)) 65 ml STK-MED ONCE I-ARTERIAL Last administered on 12/01/16 16:15; Start 12/02/16 at 08:47; Stop 12/02/16 at 08 :51; Status DC Potassium Chloride (KCl Powder) 20 meq ONCE ONCE PO ; Start 12/02/16 at 10:00 ; Stop 12/02/16 at 10:02; Status DC Insulin Human Regular (NovoLIN R SUPPLEMENTAL SCALE) 1 Q6HR SQ ; Start at 12:00; Stop 12/02/16 at 19:38; Status DC Magnesium Sulfate/ Dextrose 100 ml @ 100 mls/hr ONCE ONCE IV Last administered on 12/02/16 11:11; Start 12/02/16 at 10:00; Stop 12/02/16 at 10 :59; Status DC Metoclopramide HCl (Reglan Inj) 5 mg Q8H IV PUSH Last administered on 02:28; Start 12/02/16 at 18:00; Stop 12/12/16 at 16:47; Status DC Racepinephrine (Racepinephrine 2.25% Neb) 0.5 ml Q4HR NEB PRN NEB hemoptysis/ stridor; Start 12/03/16 at 15:00; Stop 01/13/17 at 12:47; Status DC Albuterol/ Ipratropium (Duoneb Neb) 1 ampule Q6HR NEB NEB Last administered on 12/08/16 01:13; Start 12/04/16 at 10:00; Stop 12/08/16 at 09:59; Status DC Nitroglycerin (Nitroglycerin 2% Oint) 2 inch Q6H PRN TOPICAL SBP>160, DBP>90; Start 12/04/16 at 09:15 Clonidine (Catapres) 0.1 mg Q8H PO Last administered on 01/10/17 01:22; Start 12/04/16 at 10:00; Stop 01/10/17 at 16:51; Status DC Hydralazine HCl (Apresoline Inj) 10 mg Q1H PRN IV PUSH SBP>160, DBP>90 Last administered on 12/04/16 12:39; Start 12/04/16 at 09:15; Stop 12/16/16 at 15: 01; Status DC Labetalol HCl (Trandate Inj) 10 mg Q1H PRN IV PUSH SBP>160, DBP>90, HR>65; Start 12/04/16 at 09:15; Stop 12/16/16 at 15:01; Status DC Enalaprilat (Vasotec Inj) 1.25 mg Q6H PRN IV PUSH SBP>160, DBP>90; Start 12/04 at 09:15 Sodium Chloride (NS Flush) DAILY IV FLUSH Last administered on 01/09/17 09: 19; Start 12/04/16 at 18:00; Stop 01/13/17 at 12:47; Status DC Sodium Chloride (NS Flush) UNSCH PRN IV FLUSH SEE PROTOCOL; Start 12/04/16 at 18:00; Stop 01/13/17 at 12:47; Status DC Loperamide HCl (Imodium Liq) 2 mg UNSCH PRN PO DIARRHEA; Start 12/14/16 at 10: 45 Lactobacillus Acidophilus (Lactinex) 1 tab TID PO Last administered on 08:35; Start 12/14/16 at 18:00 Famotidine (Pepcid) 20 mg BID PO Last administered on 01/31/17 08:35; Start 12/16/16 at 21:00 Ferrous Sulfate (Ferrous Sulfate) 325 mg BID@,17 PO Last administered on 17:02; Start 12/22/16 at 12:00 Ascorbic Acid (Vitamin C) 500 mg BID PO Last administered on 01/31/17 08:35; Start 12/22/16 at 09:00 Chlorhexidine Gluconate (Hibiclens 4% Top Soln) 1 applic HS TOP Last administered on 12/26/16 21:00; Start 12/22/16 at 21:00; Stop 12/26/16 at 21: 01; Status DC Cefazolin Sodium/ Dextrose 50 ml @ 150 mls/hr ONCE ONCE IV Last administered on 12/27/16 08:15; Start 12/27/16 at 06:00; Stop 12/27/16 at 06:19; Status DC Lactated Ringer's 1,000 ml @ 30 mls/hr Q24H PRN IV SEE LABEL COMMENTS; Start 12/26/16 at 15:00; Stop 12/27/16 at 11:25; Status DC Sodium Chloride 500 ml @ 30 mls/hr [id number] PRN IV SEE LABEL COMMENTS; Start at 15:00; Stop 12/27/16 at 11:25; Status DC Metoprolol Tartrate (Lopressor) 25 mg UNHAIRING INSPECTOR PRN PO SEE LABEL COMMENTS; Start 12/26/16 at 15:00; Stop 12/29/16 at 14:59; Status DC Povidone Iodine (Betadine 5% Antisepsis Kit) 1 applic UNHAIRING INSPECTOR PRN EACH NARE SEE LABEL COMMENTS; Start 12/26/16 at 15:00; Stop 12/29/16 at 14:59; Status DC Chlorhexidine Gluconate (Chlorhexidine 2% Cloth) 3 pack UNHAIRING INSPECTOR PRN TOPICAL SEE LABEL COMMENTS; Start 12/26/16 at 15:00; Stop 12/29/16 at 14:59; Status DC Insulin Human Regular (NovoLIN R INJ) See Protocol Table ... UNHAIRING INSPECTOR PRN SQ SEE PROTOCOL TABLE; Start 12/26/16 at 15:00; Stop 12/29/16 at 14:59; Status DC Thrombin (Thrombin Top Soln) 10,000 units STK-MED ONCE .ROUTE Last administered on 12/27/16 10:00; Start 12/27/16 at 07:52; Stop 12/27/16 at 07 :53; Status DC Gelatin (Gelfoam 100 Top) 1 foam STK-MED ONCE .ROUTE Last administered on 12/27 10:00; Start 12/27/16 at 07:53; Stop 12/27/16 at 07:54; Status DC Gentamicin Sulfate (Gentamicin Inj) 240 mg STK-MED ONCE .ROUTE Last administered on 12/27/16 10:00; Start 12/27/16 at 07:53; Stop 12/27/16 at 07 :54; Status DC Lidocaine/ Epinephrine (Xylocaine-Epi 1%-1:100,000 Inj) 20 ml STK-MED ONCE .ROUTE Last administered on 12/27/16 10:00; Start 12/27/16 at 07:54; Stop 12/27/16 at 07:55; Status DC Acetaminophen 100 ml @ As Directed STK-MED ONCE IV ; Start 12/27/16 at 07:57; Stop 12/27/16 at 07:58; Status DC Artificial Tears (Lacrilube Opht Oint) 3.5 applic STK-MED ONCE .ROUTE ; Start 12/27/16 at 07:58; Stop 12/27/16 at 07:59; Status DC Levetriacetam (Keppra Inj) 500 mg STK-MED ONCE IV Last administered on 10:10; Start 12/27/16 at 10:06; Stop 12/27/16 at 10:07; Status DC Potassium Chloride/Sodium Chloride 1,000 ml @ 100 mls/hr Q10H IV Last administered on 01/12/17 10:00; Start 12/27/16 at 11:17; Stop 01/12/17 at 11 :04; Status DC IV Flush (NS Flush) 2 ml UNSCH PRN IVF FLUSH AFTER USING IV ACCESS; Start at 11:30 IV Flush (NS Flush) 2 ml BID IVF Last administered on 01/13/17 08:44; Start 12/27/16 at 21:00; Stop 01/13/17 at 12:47; Status DC Cefazolin Sodium/ Dextrose 50 ml @ 100 mls/hr Q8H IV Last administered on 08:00; Start 12/27/16 at 16:00; Stop 12/28/16 at 08:29; Status DC Levetriacetam 500 mg/Sodium Chloride 105 ml @ 400 mls/hr Q12H IV ; Start 12/27 at 12:00; Status Cancel Bisacodyl (Dulcolax Supp) 10 mg DAILY PRN RECTAL CONSTIPATION; Start 12/27/16 at 11:30 Docusate Sodium (Colace) 100 mg BID PO Last administered on 01/31/17 08:35; Start 12/27/16 at 21:00 Pantoprazole Sodium (Protonix) 40 mg DAILY PO Last administered on 01/13/17 08 :44; Start 12/28/16 at 09:00; Stop 01/13/17 at 12:47; Status DC Pantoprazole Sodium (Protonix Inj) 40 mg DAILY IVP Last administered on 08:44; Start 12/28/16 at 09:00; Stop 01/13/17 at 12:43; Status DC Ondansetron HCl (Zofran Inj) 4 mg Q6H PRN IV PUSH NAUSEA OR VOMITING; Start at 11:30 Calcium Gluconate (Calcium Gluconate Inj) 1 gm UNSCH PRN IV SEE LABEL COMMENTS ; Start 12/27/16 at 11:30; Stop 12/27/16 at 11:31; Status DC Potassium Chloride 100 ml @ 50 mls/hr UNSCH PRN IV POTASSIUM LESS THAN 4; Start 12/27/16 at 11:30; Stop 01/10/17 at 16:51; Status DC Magnesium Sulfate 4 gm/Sodium Chloride 108 ml @ 108 mls/hr UNSCH PRN IV MAGNESIUM LESS THAN 2; Start 12/27/16 at 11:30; Stop 01/10/17 at 16:51; Status DC Acetaminophen/ Hydrocodone Bitart ([place] 10-325 Mg) 1 tab Q4H PRN PO PAIN 1-5 WHEN TOLERATING PO Last administered on 01/26/17 13:13; Start 12/27/16 at 11: 30 Acetaminophen/ Hydrocodone Bitart ([place] 10-325 Mg) 2 tab Q4H PRN PO PAIN 6-10 WHEN TOLERATING PO Last administered on 12/30/16 14:24; Start 12/27/16 at 11: 30 Morphine Sulfate (Morphine Inj) 2 mg Q2H PRN IV PUSH PAIN SCALE 1 TO 6 Last administered on 12/29/16 15:05; Start 12/27/16 at 11:30; Stop 01/13/17 at 12: 43; Status DC Morphine Sulfate (Morphine Inj) 4 mg Q2H PRN IV PUSH PAIN SCALE 7 TO 10 Last administered on 12/28/16 18:00; Start 12/27/16 at 11:30; Stop 01/13/17 at 12: 43; Status DC Acetaminophen (Tylenol) 650 mg Q4H PRN PO TEMPERATURE > 101.5 F; Start at 11:30 Meperidine HCl (*DEMEROL INJ PERIprocedural ONLY) 25 mg STK-MED ONCE .ROUTE Last administered on 12/27/16 11:21; Start 12/27/16 at 11:21; Stop 12/27/16 at 11:22; Status DC Calcium Gluconate 1 gm/Sodium Chloride 110 ml @ 110 mls/hr UNSCH PRN IV SEE LABEL COMMENT; Start 12/27/16 at 12:00; Stop 01/10/17 at 16:51; Status DC Miscellaneous Information ALL NURSING DEPARTME... UNSCH PRN .XX SEE LABEL COMMENTS; Start 12/27/16 at 11:45; Stop 12/28/16 at 11:44; Status DC Levetriacetam 500 mg/Sodium Chloride 105 ml @ 400 mls/hr Q12H IV ; Start 12/27 at 22:00; Status Cancel Levetriacetam (Keppra Liq) 500 mg Q12HR PEG Last administered on 01/13/17 08: 44; Start 12/27/16 at 21:00; Stop 01/13/17 at 12:47; Status DC Iohexol (Omnipaque 350 Inj) 85 ml STK-MED ONCE IVCONTRAST Last administered on 12/28/16 17:46; Start 12/28/16 at 17:46; Stop 12/28/16 at 17:47; Status DC Bacitracin (Bacitracin Oint Packet) 0.9 gm DAILY TOPICAL Last administered on 01/30/17 09:00; Start 12/30/16 at 18:31 Medical Decision Making MDM Remarks Last 48 hours Impressions Chest X-Ray 10/17/16 0600 Signed Impressions: Service Date/Time: Monday, October 17, 2016 05:27 - CONCLUSION: No significant change. Extensive basilar predominant bilateral infiltrates and small right pleural effusion are again noted. Yosvany Butler MD Transcranial Doppler Study Complete 10/16/16 0600 Signed Impressions: Service Date/Time: Sunday, October 16, 2016 07:08 - CONCLUSION: Study is becoming abnormal again with vasospasm on the left. Remington Woodward MD FACR Chest X-Ray 10/16/16 0000 Signed Impressions: Service Date/Time: Sunday, October 16, 2016 09:24 - CONCLUSION: Worsening appearance of the chest. Rolly Earl MD Last 48 hours Impressions Transcranial Doppler Study Complete 10/14/16 0600 Signed Impressions: Service Date/Time: Friday, October 14, 2016 07:49 - CONCLUSION: Increasing transcranial Doppler evidence for vasospasm. CTA is suggested Remington Woodward MD FACR Chest X-Ray 10/14/16 0000 Signed Impressions: Service Date/Time: Friday, October 14, 2016 09:38 - CONCLUSION: Line in good position without pneumothorax. Remington Woodward MD FACR Transcranial Doppler Study Complete 10/13/16 06 Signed Impressions: Service Date/Time: September 07:41 - CONCLUSION: Likely developing left MCA territory vasospasm. Yosvany Polk MD Last 48 hours Impressions Transcranial Doppler Study Complete 10/13/16599 Signed Impressions: Service Date/Time: September 07:41 - CONCLUSION: Likely developing left MCA territory vasospasm. Yosvany Polk MD Transcranial Doppler Study Complete 10/12/16599 Signed Impressions: Service Date/Time: Wednesday, October 12, 2016 07:04 - CONCLUSION: No Doppler findings to suggest significant vasospasm. Santos Crockett Jr., MD Last 48 hours Impressions Transcranial Doppler Study Complete 10/12/16599 Signed Impressions: Service Date/Time: Wednesday, October 12, 2016 07:04 - CONCLUSION: No Doppler findings to suggest significant vasospasm. Santos Crockett Jr., MD Transcranial Doppler Study Complete 10/11/16 06 Signed Impressions: Service Date/Time: Tuesday, October 11, 2016 07:34 - CONCLUSION: Normal transcranial Doppler parameters and indices Yosvany Polk MD Last Impressions Chest X-Ray 10/07/16 1700 Signed Impressions: Service Date/Time: Friday, October 07, 2016 20:53 - CONCLUSION: 1. Clear lungs. 2. A properly positioned endotracheal tube. 3. Nasogastric tube tip is in the upper stomach. The side hole is above the GE junction. Yosvany Butler MD Neck CTA 10/07/16 0000 Signed Impressions: Service Date/Time: Friday, October 07, 2016 15:03 - CONCLUSION: 1. Mild carotid bulb atherosclerotic calcification bilaterally. However, no significant stenosis is present in either internal carotid artery. 2. Paranasal sinus mucoperiosteal thickening. 3. Please refer to brain CTA report for description of the intracranial findings. Yosvany Ramirez MD Head CTA 10/07/16 0000 Signed Impressions: Service Date/Time: Friday, October 07, 2016 15:03 - CONCLUSION: 1. 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 2. Large left subdural hematoma measuring 1.3 cm in depth with a significant, 1.6 cm left to right subfalcine shift. Joni Shelton MD Head CT 10/07/16 0000 Signed Impressions: Service Date/Time: Friday, October 07, 2016 15:01 - CONCLUSION: Extensive intracranial hemorrhage on the left as detailed above with midline shift of 14 mm left to right. See the CTA reported separately. Santos Crockett Jr., MD Attending Statement continue neuro checks, Neurologically stable. Cleared to transfer out of unit back to 5N near nrs station, clear to dc to rehab/SNF from neurosurgery standpoint, cont therapy and rehab efforts, ok OOB activities with assistance dc jean 01/10/17 George Perry MD Jan 31, 2017 10:42
[2017-01-31] MEDS: FERROUS SULFATE 325 MG (65 MG ELEMENTAL IRON) TAB PO SCH ×2 (13:01→18:07)
[2017-01-31] MEDS: BACITRACIN TOP OINT 15 GM TUBE TOPICAL SCH ×2 (13:02→22:50)
[2017-01-31 13:06] VITALS: BP 116/75; PULSE 83; RESP 18; TEMP 98.1; O2SAT 96
[2017-01-31] MEDS: BACITRACIN OINT 0.9 GM PKT TOPICAL SCH (15:30)
--- NOTE | 2017-01-31 17:57 | HHI.PR ---
Subjective Remarks Pt is resting comfortably in bed, no complaints, ambulating well. He understands he is awaiting placement. He had his PEG tube removed 01/26/17. No changes. Objective Vital Signs Date Time Temp Pulse Resp B/P (MAP) Pulse Ox O2 Delivery O2 Flow Rate FiO2 01/31/17 13:06 98.1 83 18 116/75 (89) 96 01/31/17 08:11 97.3 78 18 122/74 (90) 98 01/31/17 04:00 98.6 72 18 108/65 (79) 98 01/31/17 00:00 98.7 83 18 124/74 (91) 96 01/30/17 20:00 98.3 77 18 114/72 (86) 97 I/O 01/30/17 01/30/17 01/30/17 01/31/17 01/31/17 01/31/17 07:00 15:00 23:00 07:00 15:00 23:00 Intake Total 480 ml 600 ml Output Total 2250 ml 800 ml 1800 ml Balance -2250 ml -320 ml -1200 ml Intake Oral 480 ml 600 ml Output Urine Total 2250 ml 800 ml 1800 ml # Voids 7 4 # Bowel Movements 0 Procedures 10/13 Four-vessel cerebral angiography with verapamil treatment of vasospasm Status post left frontotemporal parietal craniectomy 10/08 for evacuation subdural hematoma/duraplasty. 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 Breath sounds equal bilaterally. No wheezes GASTROINTESTINAL: Abdomen soft, non-tender, nondistended. MUSCULOSKELETAL: Extremities without edema. moves extremities. DERM: 0.5cm clean wound at site of previous PEG tube, no sign of infection. NEURO: awake and alert. DERM: Blackened and shriveled left index finger tip and right 4th finger tip, blackened toes. Procedures 10/13 Four-vessel cerebral angiography with verapamil treatment of vasospasm Status post left frontotemporal parietal craniectomy 10/08 for evacuation subdural hematoma/duraplasty. 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 parietal cranioplasty with replacement of skull flap by Dr Perry neurosurgery on 12/27/16 Date of Insertion: Dec 04, 2016 Line: Central Venous Catheter Side: Left Location: Internal, Jugular Assessment and Plan Problem List: (1) Subarachnoid hemorrhage ICD Codes: I60.9 - Nontraumatic subarachnoid hemorrhage, unspecified Status: Acute (2) Subdural hematoma ICD Codes: I62.00 - Nontraumatic subdural hemorrhage, unspecified (3) Intracranial aneurysm ICD Codes: I67.1 - Cerebral aneurysm, nonruptured (4) Respiratory failure ICD Codes: J96.90 - Respiratory failure, unspecified, unspecified whether with hypoxia or hypercapnia Status: Acute Assessment and Plan Current Status: PEG tube removed 01/26/17, patient donig well, ambulating, balanced. 1. Subdural Hematoma/duraplasty status post left frontotemporal parietal craniotomy 10/08. Status post left cranioplasty 12/27/16 status post decannulation- stable. 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 - 10/13 and 10/14 and 10/17) 10/19 left MCA territory vasospasm, status post successful verapamil treatment by IR with 20 mg verapamil - 10/17 CT brain - less hemisphere edema with herniation through left craniotomy site, improved. - Echocardiogram 10/14/16 revealed EF 40-45%. Septal hypokinesis. Moderate MR. Severe pulmonary hypertension with pulmonary artery pressures estimated 61 mmHg Limited Echo 11/06: LVEF 60-65%, Trivial mitral and tricuspid regurgitation, No vegetations noted. - On diltiazem's 90 mg by mouth every 6 hours . - neurologically stable and doing well, and continued PT and rehabilitation. - PT, OT, speech following. Respiratory failure, S/P tracheostomy. Resolved now and stable. - S/p Trach Dr. Sullivan/Dr. Collazo 11/01 #8 [place] - CT angiogram chest/neck revealed right centrilobular bleeding likely source right bronchial artery. Repeat CT chest 11/29no visualization of active bleeding.- Resolved - 10/19 - embolization of right bronchial artery by IR- no further bleeding from tracheostomy - Redo trach 11/[address] Sullivan.now trach has been removed. - continue neb treatment. - trach removed Lower Extremity Edema - Resolved Ileus- Resolved Elevated transaminases Hyperammonemia protein caloric malnutrition-calorie count performed- grease renderer recommendations noted; grease renderer following. Right occlusive subclavian, axillary and bilateral superficial cephalic thrombus - limited Echo to evaluate vegetation-neg. 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 Cardizem PO currently and 90 mg every 6 hours (for digital ischemia, Raynaud's) - Continue bacitracin twice a day to affected areas - We'll need to be started on systemic anticoagulation at some point however with embolization for hemoptysis holding full anticoagulation at this time. - evaluated by vascular surgery and no interventions recommended at this time. sacral ulcer - ABD dressing with [employer]-. Wound care also consulted. appreciate recommendations. - Turn position every 2 hours - Out of bed to chair activity DVT prophylaxis with SCD, no chemoprophylaxis secondary to risk for bleeding. clinically no change. continue current treatment. Course of hospitalization complications (prior info due to long hospital stay) Acute hypoxic Respiratory failure secondary to mucous plugging- Resolved Possible healthcare associated pneumonia, Septic Shock- resolved. ARDS - resolved Noncardiogenic/neurogenic pulmonary edema- resolved. Massive Hemoptysis - resolved Aspiration pneumonitis - resolved Cerebral Salt Wasting/SIADH-resolved now hypernatremic - Creatinine currently within normal limits -> resolved. - Monitor urine output Septic and cardiogenic shock- resolved. LV dysfunction secondary to SAH - persistent, now resolved Elevated troponin- secondary to SAH, unlikely to be ACS. - resolved. Pulmonary hypertension s/p PEA arrest 11/28 after ETT dislodgement, hypoxic arrest Problem Qualifiers (1) Respiratory failure: Qualified Codes: J96.00 - Acute respiratory failure, unspecified whether with hypoxia or hypercapnia Marcos Lorenzo MD Jan 31, 2017 17:57
[2017-01-31 20:00] VITALS: BP 117/74; PULSE 84; RESP 20; TEMP 97.9; O2SAT 96
[2017-01-31] MEDS: MELATONIN 5 MG TAB PO SCH (21:56)
[2017-02-01] VITALS: BP_SYST 114; BP_SYST 116; BP_DIAS 55; BP_DIAS 73; PULSE 65; PULSE 82; RESP 20; TEMP 98.3; TEMP 98.4; O2SAT 95; O2SAT 96
[2017-02-01] MEDS: DILTIAZEM HCL 90 MG TAB PO SCH ×4 (01:13→18:39)
[2017-02-01 04:00] VITALS: BP 125/78; PULSE 73; RESP 20; TEMP 98.1; O2SAT 97
[2017-02-01] MEDS: CHLORHEXIDINE 0.12% (ORAL KIT) 15 ML CUP MT SCH ×2 (08:00→20:00)
[2017-02-01 08:35] VITALS: BP 112/70; PULSE 69; RESP 17; TEMP 97.8; O2SAT 96
[2017-02-01] MEDS: BACITRACIN OINT 0.9 GM PKT TOPICAL SCH (09:00)
[2017-02-01] MEDS: ARTIFICIAL TEARS OPTH SOLN 15 ML BTL EACH EYE SCH ×3 (09:00→18:00)
[2017-02-01] MEDS: DOCUSATE SODIUM 100 MG CAP PO SCH ×2 (09:42→21:00)
[2017-02-01] MEDS: FAMOTIDINE 20 MG TAB PO SCH ×2 (09:43→22:57)
[2017-02-01] MEDS: LACTOBACILLUS ACIDOPHILUS TAB PO SCH ×3 (09:43→18:39)
[2017-02-01] MEDS: ASCORBIC ACID 500 MG TAB PO SCH ×2 (09:44→22:57)
[2017-02-01] MEDS: BACITRACIN TOP OINT 15 GM TUBE TOPICAL SCH ×2 (09:45→22:59)
[2017-02-01 12:20] VITALS: BP 109/70; PULSE 74; RESP 17; TEMP 98.1; O2SAT 98
[2017-02-01] MEDS: FERROUS SULFATE 325 MG (65 MG ELEMENTAL IRON) TAB PO SCH ×2 (13:03→18:38)
--- NOTE | 2017-02-01 15:21 | HHI.PR ---
Subjective Remarks Patient says he is feeling all right. Denies any pain. Denies any chest pain or shortness of breath. Objective Vital Signs Date Time Temp Pulse Resp B/P (MAP) Pulse Ox O2 Delivery O2 Flow Rate FiO2 02/01/17 12:20 98.1 74 17 109/70 (83) 98 02/01/17 08:35 97.8 69 17 112/70 (84) 96 02/01/17 04:00 98.1 73 20 125/78 (94) 97 02/01/17 00:00 98.4 82 20 114/73 (87) 96 01/31/17 20:00 97.9 84 20 117/74 (88) 96 I/O 01/31/17 01/31/17 01/31/17 02/01/17 02/01/17 02/01/17 07:00 15:00 23:00 07:00 15:00 23:00 Intake Total 840 ml 380 ml Output Total 2200 ml 800 ml 550 ml Balance -1360 ml -420 ml -550 ml Intake Oral 840 ml 380 ml Output Urine Total 2200 ml 800 ml 550 ml # Voids 4 # Bowel Movements 0 0 Procedures 10/13 Four-vessel cerebral angiography with verapamil treatment of vasospasm Status post left frontotemporal parietal craniectomy 10/08 for evacuation subdural hematoma/duraplasty. 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 Appears comfortable. SKIN: Warm and dry. HEAD: Normocephalic. EYES: No scleral icterus. No injection or drainage. NECK: Supple, trachea midline. No JVD. CARDIOVASCULAR: Regular rate and rhythm without murmurs, gallops, or rubs. RESPIRATORY: Breath sounds equal bilaterally. No accessory muscle use. GASTROINTESTINAL: Abdomen soft, non-tender, nondistended. MUSCULOSKELETAL: tips of toes on bilateral feet with dry gangrene. Left second DIP with dry gangrene., Right ring finger. No erythema. BACK: Nontender without obvious deformity. No CVA tenderness. A/P Assessment and Plan Current Status: PEG tube removed 01/26/17, patient donig well, ambulating, balanced. // Subdural Hematoma/duraplasty status post left frontotemporal parietal craniotomy 10/08. Status post left cranioplasty 12/27/16 status post decannulation- stable. 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 - 10/13 and 10/14 and 10/17) 10/19 left MCA territory vasospasm, status post successful verapamil treatment by IR with 20 mg verapamil - 10/17 CT brain - less hemisphere edema with herniation through left craniotomy site, improved. - Echocardiogram 10/14/16 revealed EF 40-45%. Septal hypokinesis. Moderate MR. Severe pulmonary hypertension with pulmonary artery pressures estimated 61 mmHg Limited Echo 11/06: LVEF 60-65%, Trivial mitral and tricuspid regurgitation, No vegetations noted. - On diltiazem's 90 mg by mouth every 6 hours . - neurologically stable and doing well, and continued PT and rehabilitation. - PT, OT, speech following. = Cleared by neurosurgery for discharge. //Respiratory failure, S/P tracheostomy. Resolved now and stable. - S/p Trach Dr. Sullivan/Dr. Collazo 11/01 #8 [place] - CT angiogram chest/neck revealed right centrilobular bleeding likely source right bronchial artery. Repeat CT chest 11/29no visualization of active bleeding.- Resolved - 12/01 - embolization of right bronchial artery by IR- no further bleeding from tracheostomy - Redo trach 11/[address] Sullivan.now trach has been removed. - continue neb treatment. - trach removed = Saturating well on room air //protein caloric malnutrition-calorie count performed- manpower development specialist recommendations noted; manpower development specialist following. //Right occlusive subclavian, axillary and bilateral superficial cephalic thrombus - limited Echo to evaluate vegetation-neg. 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 Cardizem PO currently and 90 mg every 6 hours (for digital ischemia, Raynaud's) - Continue bacitracin twice a day to affected areas - We'll need to be started on systemic anticoagulation at some point however with embolization for hemoptysis holding full anticoagulation at this time. - evaluated by vascular surgery and no interventions recommended at that time. = Repeat ultrasound ordered follow-up DVT. //sacral ulcer - ABD dressing with [employer]-. Wound care also consulted. appreciate recommendations. - Turn position every 2 hours - Out of bed to chair activity //DVT prophylaxis with SCD, no chemoprophylaxis secondary to risk for bleeding. clinically no change. continue current treatment. ======= Course of hospitalization complications (prior info due to long hospital stay) //Lower Extremity Edema - Resolved //Ileus- Resolved //Hyperammonemia - mild improved. //Elevated transaminases - resolved. //Acute hypoxic Respiratory failure secondary to mucous plugging- Resolved //Possible healthcare associated pneumonia, Septic Shock- resolved. //ARDS - resolved //Noncardiogenic/neurogenic pulmonary edema- resolved. //Massive Hemoptysis - resolved //Aspiration pneumonitis - resolved //Cerebral Salt Wasting/SIADH-resolved now hypernatremic - Creatinine currently within normal limits -> resolved. - Monitor urine output //Septic and cardiogenic shock- resolved. //LV dysfunction secondary to SAH - persistent, now resolved //Elevated troponin- secondary to SAH, unlikely to be ACS. - resolved. //Pulmonary hypertension s/p PEA arrest 11/28 after ETT dislodgement, hypoxic arrest Discharge Planning Possible discharge home tomorrow. is DIRECTOR EXPORT. Pending ultrasound to follow-up the subclavian DVT Will need follow-up with vascular surgery. Miguel Dhillon MD Feb 01, 2017 15:20
[2017-02-01 16:45] VITALS: BP 112/70; PULSE 74; RESP 17; TEMP 98.3; O2SAT 96
[2017-02-01 21:22] VITALS: BP 116/73; PULSE 78; RESP 16; TEMP 98.3; O2SAT 96
[2017-02-01] MEDS: MELATONIN 5 MG TAB PO SCH (22:57)
--- NOTE | 2017-02-01 23:26 | RADRPT ---
EXAM DATE/TIME: 02/01/2017 17:17 [facility] COMPARISON: US ARM BILATERAL VENOUS DOPPLER, December 04, 2016, 15:37. INDICATIONS : Previous DVT. MEDICAL HISTORY : Hypertension. Deep venous thrombosis. Cerebrovascular accident. SURGICAL HISTORY : PEG tube. Craniotomy. Tracheostomy. ENCOUNTER: Subsequent ACUITY: 1 day PAIN SCORE: 2/10 LOCATION: Bilateral arms. FINDINGS: RIGHT UPPER EXTREMITY: There is thrombus in the cephalic vein. There is spontaneous flow documented in the brachial, basilic , axillary, and subclavian veins. The vessels are compressible and augmentation response is document ed. No filling defects are seen. The flow is phasic with respiration. Direction of flow in the jug ular vein is caudal. LEFT UPPER EXTREMITY: There is thrombus in the cephalic vein. There is spontaneous flow documented in the brachial, basilic , axillary, and subclavian veins. The vessels are compressible and augmentation response is document ed. No filling defects are seen. The flow is phasic with respiration. Direction of flow in the jug ular vein is caudal. CONCLUSION: Thrombus in the cephalic veins bilaterally. All the other visualized venous structures are patent. Yosvany Alfaro MD on February 01, 2017 at 23:23 Board Certified Radiologist. This report was verified electronically.
[2017-02-02] MEDS: DILTIAZEM HCL 90 MG TAB PO SCH ×2 (00:27→06:00)
[2017-02-02 00:34] VITALS: BP 120/68; PULSE 70; RESP 18; TEMP 98.3; O2SAT 97
[2017-02-02 05:26] VITALS: BP 105/65; PULSE 63; RESP 18; TEMP 98.2; O2SAT 96
[2017-02-02 08:07] VITALS: BP 121/75; PULSE 72; RESP 20; TEMP 98.1; O2SAT 100
[2017-02-02] MEDS ORDERED: FERR325T20 PO (09:15)
[2017-02-02] MEDS ORDERED: ASCO500 PO (09:15)
[2017-02-02] MEDS ORDERED: DILT90TA PO (09:15)
[2017-02-02] MEDS ORDERED: DOCU1CAP39 PO (09:15)
[2017-02-02] MEDS: DOCUSATE SODIUM 100 MG CAP PO SCH (10:21)
[2017-02-02] MEDS: ASCORBIC ACID 500 MG TAB PO SCH (10:21)
[2017-02-02] MEDS: FAMOTIDINE 20 MG TAB PO SCH (10:22)
[2017-02-02] MEDS: LACTOBACILLUS ACIDOPHILUS TAB PO SCH (10:22)
[2017-02-02] MEDS: BACITRACIN TOP OINT 15 GM TUBE TOPICAL SCH (10:22)
[2017-02-02] MEDS: CHLORHEXIDINE 0.12% (ORAL KIT) 15 ML CUP MT SCH (10:22)
[2017-02-02] MEDS: BACITRACIN OINT 0.9 GM PKT TOPICAL SCH (10:22)
[2017-02-02] MEDS: ARTIFICIAL TEARS OPTH SOLN 15 ML BTL EACH EYE SCH (10:23)
--- NOTE | 2017-02-02 10:45 | PD.WOU.PN ---
Patient Intake Chief Complaint Sacral ulcer Consult Requested by Reason for Consult Wound care rounds on patient Primary Care Physician No Primary Care Physician Coded Allergies: No Known Allergies (Unverified , 05/06/16) Vital Signs Date Time Temp Pulse Resp B/P (MAP) Pulse Ox O2 Delivery O2 Flow Rate FiO2 02/02/17 08:07 98.1 72 20 121/75 (90) 100 02/02/17 05:26 98.2 63 18 105/65 (78) 96 02/02/17 00:34 98.3 70 18 120/68 (85) 97 02/01/17 21:22 98.3 78 16 116/73 (87) 96 02/01/17 16:45 98.3 74 17 112/70 (84) 96 02/01/17 12:20 98.1 74 17 109/70 (83) 98 Lab and Radiology Results Radiology Last Impressions Upper Extremity Ultrasound 02/01/17 0000 Signed Impressions: Service Date/Time: Wednesday, February 01, 2017 17:17 - CONCLUSION: Thrombus in the cephalic veins bilaterally. All the other visualized venous structures are patent. Yosvany Alfaro MD Lower Extremity Ultrasound 12/29/16 0000 Signed Impressions: Service Date/Time: December 13:07 - CONCLUSION: No sonographic or Doppler findings of deep venous thrombosis. Joni Shelton MD Carotid Artery Ultrasound 12/27/16 0000 Signed Impressions: Service Date/Time: Tuesday, December 27, 2016 17:19 - CONCLUSION: Mild plaque at the carotid bulb regions bilaterally without a significant stenosis seen. Yosvany Alfaro MD Aorta w/Runoff CTA 12/27/16 0000 Signed Impressions: Service Date/Time: Wednesday, December 28, 2016 17:28 - CONCLUSION: Atherosclerotic calcification seen throughout the arterial system without an area of significant stenosis. The trifurcation vessels are only faintly opacified. Yosvany Alfaro MD Modified Barium Swallow 12/23/16 0000 Signed Impressions: Service Date/Time: Friday, December 23, 2016 09:11 - CONCLUSION: Negative for aspiration.. Remington Woodward MD FACR Chest X-Ray 12/04/16 2475 Signed Impressions: Service Date/Time: Sunday, December 04, 2016 18:55 - CONCLUSION: 1. Placement of left central line tip in superior vena cava. No pneumothorax. Mild basilar airspace disease. Small right effusion. Gurwinder Root MD Angiography 12/01/16 0000 Signed Impressions: Service Date/Time: November 14:02 - CONCLUSION: 1. Right side up on her hemorrhage with angiography of the right bronchial artery revealing no source of active hemorrhage. Empiric embolization was performed. Santos Crockett Jr., MD Chest CT 11/28/16 Signed Impressions: Service Date/Time: Tuesday, November 29, 2016 05:13 - CONCLUSION: 1. Patchy alveolar disease characteristic of edema or pneumonia. 2. Severe emphysema 3. Gastrojejunostomy tube looped in the stomach Harvey Morejon MD Chest/Thorax CTA 11/26/16 Signed Impressions: Service Date/Time: Saturday, November 26, 2016 20:18 - CONCLUSION: 1. Extensive filling defects within the right central bronchial tree characteristic of endobronchial hemorrhage. 2. Consolidating airspace disease in the right upper lobe and right lower lobe characteristic of hemorrhage and post obstructive lung consolidation. 3. Right bronchial artery is identified extending to the central right bronchial region 4. Advanced COPD. Nasir Amanda MD Abdomen X-Ray 11/19/16 0600 Signed Impressions: Service Date/Time: Saturday, November 19, 2016 02:44 - CONCLUSION: Unchanged bowel gas pattern potentially relating to an ileus. Santos Crockett Jr., MD Transcranial Doppler Study Complete 10/20/16 0600 Signed Impressions: Service Date/Time: October 07:54 - CONCLUSION: Slight interval elevation of flow velocity measurements and ratio on the left Yosvany Polk MD Liver Ultrasound 10/19/16 Signed Impressions: Service Date/Time: Wednesday, October 19, 2016 11:20 - CONCLUSION: 1. Sludge filled gallbladder with thickened wall. 2. Moderate size bilateral pleural effusions and mild upper abdominal ascites. Santos Vazquez MD Cerebral Arteriogram 10/19/16 Signed Impressions: Service Date/Time: Wednesday, October 19, 2016 12:47 - CONCLUSION: Uncomplicated cerebral arteriography with spasmolytic therapy as described in detail above. Yosvany Polk MD Head CT 10/17/16 Signed Impressions: Service Date/Time: Monday, October 17, 2016 15:06 - CONCLUSION: Ventricles are slightly larger without ventriculostomy. Edema in the left hemisphere the brain herniating through the operative site. Remington Woodward MD FACR Infusion Non-thrombolysis 10/14/16 1103 Signed Impressions: Service Date/Time: Friday, October 14, 2016 10:21 - CONCLUSION: 1. Uncomplicated infusion for spasmolysis Harvey Morejon MD Neck CTA 10/07/16 0000 Signed Impressions: Service Date/Time: Friday, October 07, 2016 15:03 - CONCLUSION: 1. Mild carotid bulb atherosclerotic calcification bilaterally. However, no significant stenosis is present in either internal carotid artery. 2. Paranasal sinus mucoperiosteal thickening. 3. Please refer to brain CTA report for description of the intracranial findings. Yosvany Ramirez MD Head CTA 10/07/16 0000 Signed Impressions: Service Date/Time: Friday, October 07, 2016 15:03 - CONCLUSION: 1. 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 2. Large left subdural hematoma measuring 1.3 cm in depth with a significant, 1.6 cm left to right subfalcine shift. Joni Shelton MD Assessment/Plan Problem List: (1) Dry gangrene Status: Chronic Plan: Betadine painted on digits daily. (2) Sacral decubitus ulcer, stage IV Status: Resolved Plan: Wound is completely healed. (3) Sacral decubitus ulcer, stage IV Africa Mcnair MD Feb 02, 2017 10:45
--- NOTE | 2017-02-02 11:08 | HHI.PR ---
Subjective Remarks Patient seen this morning around 9:30 AM. Says he's feeling alright. No overt complaints. Objective Vital Signs Date Time Temp Pulse Resp B/P (MAP) Pulse Ox O2 Delivery O2 Flow Rate FiO2 02/02/17 08:07 98.1 72 20 121/75 (90) 100 02/02/17 05:26 98.2 63 18 105/65 (78) 96 02/02/17 00:34 98.3 70 18 120/68 (85) 97 02/01/17 21:22 98.3 78 16 116/73 (87) 96 02/01/17 16:45 98.3 74 17 112/70 (84) 96 02/01/17 12:20 98.1 74 17 109/70 (83) 98 I/O 02/01/17 02/01/17 02/01/17 02/02/17 02/02/17 02/02/17 07:00 15:00 23:00 07:00 15:00 23:00 Intake Total 380 ml Output Total 800 ml 550 ml 1000 ml Balance -420 ml -550 ml -1000 ml Intake Oral 380 ml Output Urine Total 800 ml 550 ml 1000 ml # Bowel Movements 0 0 Procedures 10/13 Four-vessel cerebral angiography with verapamil treatment of vasospasm Status post left frontotemporal parietal craniectomy 10/08 for evacuation subdural hematoma/duraplasty. 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 Appears comfortable. No changes on exam today. SKIN: Warm and dry. HEAD: Normocephalic. EYES: No scleral icterus. No injection or drainage. NECK: Supple, trachea midline. No JVD. CARDIOVASCULAR: Regular rate and rhythm without murmurs, gallops, or rubs. RESPIRATORY: Breath sounds equal bilaterally. No accessory muscle use. GASTROINTESTINAL: Abdomen soft, non-tender, nondistended. MUSCULOSKELETAL: tips of toes on bilateral feet with dry gangrene. Left second DIP with dry gangrene., Right ring finger. No erythema. BACK: Nontender without obvious deformity. No CVA tenderness. A/P Assessment and Plan Current Status: PEG tube removed 01/26/17, patient donig well, ambulating, balanced. // Subdural Hematoma/duraplasty status post left frontotemporal parietal craniotomy 10/08. Status post left cranioplasty 12/27/16 status post decannulation- stable. 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 - 10/13 and 10/14 and 10/17) 10/19 left MCA territory vasospasm, status post successful verapamil treatment by IR with 20 mg verapamil - 10/17 CT brain - less hemisphere edema with herniation through left craniotomy site, improved. - Echocardiogram 10/14/16 revealed EF 40-45%. Septal hypokinesis. Moderate MR. Severe pulmonary hypertension with pulmonary artery pressures estimated 61 mmHg Limited Echo 11/06: LVEF 60-65%, Trivial mitral and tricuspid regurgitation, No vegetations noted. - On diltiazem's 90 mg by mouth every 6 hours . - neurologically stable and doing well, and continued PT and rehabilitation. - PT, OT, speech following. = Cleared by neurosurgery for discharge. //Respiratory failure, S/P tracheostomy. Resolved now and stable. - S/p Trach Dr. Sullivan/Dr. Collazo 11/01 #8 [facility] - CT angiogram chest/neck revealed right centrilobular bleeding likely source right bronchial artery. Repeat CT chest 11/29no visualization of active bleeding.- Resolved - 12/01 - embolization of right bronchial artery by IR- no further bleeding from tracheostomy - Redo trach 11/[address] Sullivan.now trach has been removed. - continue neb treatment. - trach removed = Saturating well on room air //protein caloric malnutrition-calorie count performed- graphite grinder recommendations noted; graphite grinder following. //Right occlusive subclavian, axillary and bilateral superficial cephalic thrombus - limited Echo to evaluate vegetation-neg. 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 Cardizem PO currently and 90 mg every 6 hours (for digital ischemia, Raynaud's) - Continue bacitracin twice a day to affected areas - We'll need to be started on systemic anticoagulation at some point however with embolization for hemoptysis holding full anticoagulation at this time. - evaluated by vascular surgery and no interventions recommended at that time. = Repeat ultrasound ordered follow-up DVT. Negative for sc DVT. Positive superficial cephalic vein thrombosis bilaterally. //sacral ulcer - ABD dressing with [employer]-. Wound care also consulted. appreciate recommendations. - Turn position every 2 hours - Out of bed to chair activity //DVT prophylaxis with SCD, no chemoprophylaxis secondary to risk for bleeding. clinically no change. continue current treatment. ======= Course of hospitalization complications (prior info due to long hospital stay) //Lower Extremity Edema - Resolved //Ileus- Resolved //Hyperammonemia - mild improved. //Elevated transaminases - resolved. //Acute hypoxic Respiratory failure secondary to mucous plugging- Resolved //Possible healthcare associated pneumonia, Septic Shock- resolved. //ARDS - resolved //Noncardiogenic/neurogenic pulmonary edema- resolved. //Massive Hemoptysis - resolved //Aspiration pneumonitis - resolved //Cerebral Salt Wasting/SIADH-resolved now hypernatremic - Creatinine currently within normal limits -> resolved. - Monitor urine output //Septic and cardiogenic shock- resolved. //LV dysfunction secondary to SAH - persistent, now resolved //Elevated troponin- secondary to SAH, unlikely to be ACS. - resolved. 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 Will need follow-up with vascular surgery. Follow with wound care ordered. Miguel Dhillon MD Feb 02, 2017 11:08
--- NOTE | 2017-02-02 11:12 | HHI.DS ---
Discharge Summary Admission Date Oct 07, 2016 at 15:46 Discharge Date: Feb 02, 2017 Admitting Diagnosis subarachnoid hemorrhage, respiratory failure (1) Subarachnoid hemorrhage due to ruptured aneurysm ICD Code: I60.8 - Other nontraumatic subarachnoid hemorrhage (2) Subdural hematoma ICD Code: I62.00 - Nontraumatic subdural hemorrhage, unspecified (3) Intracranial aneurysm ICD Code: I67.1 - Cerebral aneurysm, nonruptured (4) Respiratory failure ICD Code: J96.90 - Respiratory failure, unspecified, unspecified whether with hypoxia or hypercapnia Status: Acute Procedures 10/13 Four-vessel cerebral angiography with verapamil treatment of vasospasm Status post left frontotemporal parietal craniectomy 10/08 for evacuation subdural hematoma/duraplasty. 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 Patient was transferred from [facility] at [facility]. As per the paramedics and the nurse who assisted the patient said that patient earlier this morning was coming down the stairs when he started feeling some left-sided weakness and numbness. He called 911 and by the time EMS arrived they detected some deficit and called a stroke alert. Patient was taken to [facility]. When patient arrived his mental status started to decline and he was intubated emergently in the ER. A CAT scan of the head showed subarachnoid and subdural bleed. He was taking emergently to an angio suite for coiling of the aneurysm and later on to OR for subdural hematoma evacuation. Imaging Last Impressions Upper Extremity Ultrasound 02/01/17 0000 Signed Impressions: Service Date/Time: Wednesday, February 01, 2017 17:17 - CONCLUSION: Thrombus in the cephalic veins bilaterally. All the other visualized venous structures are patent. Yosvany Alfaro MD Lower Extremity Ultrasound 12/29/16 0000 Signed Impressions: Service Date/Time: December 13:07 - CONCLUSION: No sonographic or Doppler findings of deep venous thrombosis. Joni Shelton MD Carotid Artery Ultrasound 12/27/16 0000 Signed Impressions: Service Date/Time: Tuesday, December 27, 2016 17:19 - CONCLUSION: Mild plaque at the carotid bulb regions bilaterally without a significant stenosis seen. Yosvany Alfaro MD Aorta w/Runoff CTA 12/27/16 0000 Signed Impressions: Service Date/Time: Wednesday, December 28, 2016 17:28 - CONCLUSION: Atherosclerotic calcification seen throughout the arterial system without an area of significant stenosis. The trifurcation vessels are only faintly opacified. Yosvany Alfaro MD Modified Barium Swallow 12/23/16 0000 Signed Impressions: Service Date/Time: Friday, December 23, 2016 09:11 - CONCLUSION: Negative for aspiration.. Remington Woodward MD FACR Chest X-Ray 12/04/16 1753 Signed Impressions: Service Date/Time: Sunday, December 04, 2016 18:55 - CONCLUSION: 1. Placement of left central line tip in superior vena cava. No pneumothorax. Mild basilar airspace disease. Small right effusion. Gurwinder Root MD Angiography 12/01/16 0000 Signed Impressions: Service Date/Time: November 14:02 - CONCLUSION: 1. Right side up on her hemorrhage with angiography of the right bronchial artery revealing no source of active hemorrhage. Empiric embolization was performed. Santos Crockett Jr., MD Chest CT 11/28/16 0000 Signed Impressions: Service Date/Time: Tuesday, November 29, 2016 05:13 - CONCLUSION: 1. Patchy alveolar disease characteristic of edema or pneumonia. 2. Severe emphysema 3. Gastrojejunostomy tube looped in the stomach Harvey Morejon MD Chest/Thorax CTA 11/26/16 0000 Signed Impressions: Service Date/Time: Saturday, November 26, 2016 20:18 - CONCLUSION: 1. Extensive filling defects within the right central bronchial tree characteristic of endobronchial hemorrhage. 2. Consolidating airspace disease in the right upper lobe and right lower lobe characteristic of hemorrhage and post obstructive lung consolidation. 3. Right bronchial artery is identified extending to the central right bronchial region 4. Advanced COPD. Nasir Amanda MD Abdomen X-Ray 11/19/16 0600 Signed Impressions: Service Date/Time: Saturday, November 19, 2016 02:44 - CONCLUSION: Unchanged bowel gas pattern potentially relating to an ileus. Santos Crockett Jr., MD Transcranial Doppler Study Complete 10/20/16 0600 Signed Impressions: Service Date/Time: October 07:54 - CONCLUSION: Slight interval elevation of flow velocity measurements and ratio on the left Yosvany Polk MD Liver Ultrasound 10/19/16 0000 Signed Impressions: Service Date/Time: Wednesday, October 19, 2016 11:20 - CONCLUSION: 1. Sludge filled gallbladder with thickened wall. 2. Moderate size bilateral pleural effusions and mild upper abdominal ascites. Santos Vazquez MD Cerebral Arteriogram 10/19/16 0000 Signed Impressions: Service Date/Time: Wednesday, October 19, 2016 12:47 - CONCLUSION: Uncomplicated cerebral arteriography with spasmolytic therapy as described in detail above. Yosvany Polk MD Head CT 10/17/16 0000 Signed Impressions: Service Date/Time: Monday, October 17, 2016 15:06 - CONCLUSION: Ventricles are slightly larger without ventriculostomy. Edema in the left hemisphere the brain herniating through the operative site. Remington Woodward MD FACR Infusion Non-thrombolysis 10/14/16 1103 Signed Impressions: Service Date/Time: Friday, October 14, 2016 10:21 - CONCLUSION: 1. Uncomplicated infusion for spasmolysis Harvey Morejon MD Neck CTA 10/07/16 0000 Signed Impressions: Service Date/Time: Friday, October 07, 2016 15:03 - CONCLUSION: 1. Mild carotid bulb atherosclerotic calcification bilaterally. However, no significant stenosis is present in either internal carotid artery. 2. Paranasal sinus mucoperiosteal thickening. 3. Please refer to brain CTA report for description of the intracranial findings. Yosvany Ramirez MD Head CTA 10/07/16 0000 Signed Impressions: Service Date/Time: Friday, October 07, 2016 15:03 - CONCLUSION: 1. 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 2. Large left subdural hematoma measuring 1.3 cm in depth with a significant, 1.6 cm left to right subfalcine shift. Joni Shelton MD PE at Discharge GENERAL: laying in bed CARDIOVASCULAR: Regular rate and regular rhythm without murmurs RESPIRATORY: Clear to auscultation. Breath sounds equal bilaterally. No wheezes GASTROINTESTINAL: Abdomen soft, non-tender, nondistended. PEG tube site w no signs of infection (removed yesterday by GI) Normal, active bowel sounds MUSCULOSKELETAL: Extremities without edema. moves extremities. NEURO: awake and alert. Hospital Course Current Status: PEG tube removed 01/26/17, patient donig well, ambulating, balanced. // Subdural Hematoma/duraplasty status post left frontotemporal parietal craniotomy 10/08. Status post left cranioplasty 12/27/16 status post decannulation- stable. 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 - 10/13 and 10/14 and 10/17) 10/19 left MCA territory vasospasm, status post successful verapamil treatment by IR with 20 mg verapamil - 10/17 CT brain - less hemisphere edema with herniation through left craniotomy site, improved. - Echocardiogram 10/14/16 revealed EF 40-45%. Septal hypokinesis. Moderate MR. Severe pulmonary hypertension with pulmonary artery pressures estimated 61 mmHg Limited Echo 11/06: LVEF 60-65%, Trivial mitral and tricuspid regurgitation, No vegetations noted. - On diltiazem's 90 mg by mouth every 6 hours . - neurologically stable and doing well, and continued PT and rehabilitation. - PT, OT, speech following. = Cleared by neurosurgery for discharge. //Respiratory failure, S/P tracheostomy. Resolved now and stable. - S/p Trach Dr. Sullivan/Dr. Collazo 11/01 #8 [place] - CT angiogram chest/neck revealed right centrilobular bleeding likely source right bronchial artery. Repeat CT chest 11/29no visualization of active bleeding.- Resolved - 12/01 - embolization of right bronchial artery by IR- no further bleeding from tracheostomy - Redo trach 11/[address] Sullivan.now trach has been removed. - continue neb treatment. - trach removed = Saturating well on room air //protein caloric malnutrition-calorie count performed- shipwright helper recommendations noted; shipwright helper following. //Right occlusive subclavian, axillary and bilateral superficial cephalic thrombus - limited Echo to evaluate vegetation-neg. 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 Cardizem PO currently and 90 mg every 6 hours (for digital ischemia, Raynaud's) - Continue bacitracin twice a day to affected areas - We'll need to be started on systemic anticoagulation at some point however with embolization for hemoptysis holding full anticoagulation at this time. - evaluated by vascular surgery and no interventions recommended at that time. = Repeat ultrasound ordered follow-up DVT. Negative for sc DVT. Positive superficial cephalic vein thrombosis bilaterally. //sacral ulcer - ABD dressing with [employer]-. Wound care also consulted. appreciate recommendations. - Turn position every 2 hours - Out of bed to chair activity //DVT prophylaxis with SCD, no chemoprophylaxis secondary to risk for bleeding. clinically no change. continue current treatment. ======= Course of hospitalization complications (prior info due to long hospital stay) //Lower Extremity Edema - Resolved //Ileus- Resolved //Hyperammonemia - mild improved. //Elevated transaminases - resolved. //Acute hypoxic Respiratory failure secondary to mucous plugging- Resolved //Possible healthcare associated pneumonia, Septic Shock- resolved. //ARDS - resolved //Noncardiogenic/neurogenic pulmonary edema- resolved. //Massive Hemoptysis - resolved //Aspiration pneumonitis - resolved //Cerebral Salt Wasting/SIADH-resolved now hypernatremic - Creatinine currently within normal limits -> resolved. - Monitor urine output //Septic and cardiogenic shock- resolved. //LV dysfunction secondary to SAH - persistent, now resolved //Elevated troponin- secondary to SAH, unlikely to be ACS. - resolved. 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 Will need follow-up with vascular surgery. Follow with wound care ordered. Pt Condition on Discharge: Good Discharge Disposition: Discharge Home Discharge Time: > 30 minutes Discharge Instructions DIET: Follow Instructions for: Heart Healthy Diet Speech Therapy-Diet Recommends: Pureed Activities you can perform: Regular-No Restrictions Other Activity Instructions: walk With supervision. Follow up Referrals: Appointment for Follow Up Neurosurgery - 2 Weeks with George Perry MD PCP Follow-up - 1 Week with Ifeoma Garnett PCP Follow-up [facility] - 3-5 Days New Medications: Ascorbic Acid (Sm Chewable C) 500 Mg Chw 500 MG PO BID for iron absorption for 30 Days, EA Diltiazem (Diltiazem) 90 Mg Tab 90 MG PO Q6HR for heart for 30 Days, TAB Docusate Sodium (Dok) 100 Mg Cap 100 MG PO BID for Constipation for 30 Days, #60 CAP Ferrous Sulfate (Ferosul) 325 Mg (65 Mg Iron) Tablet 325 MG PO BID@12,17 for anemia for 30 Days, TAB Discontinued Medications: Naproxen (Naprosyn) 500 Mg Tab 500 MG PO BID PRN for PAIN SCALE 1 TO 10, #20 TAB Miguel Dhillon MD Feb 02, 2017 11:12
--- NOTE | 2017-02-02 12:47 | PD.WCN.NOT ---
Wound Consult Description: Patient seen on [facility] [place] for follow up of pressure injuries to buttock area Communicated with: JOSE CRUZ wang and Doctor Mcnair Recommendation: Please follow orders written by Doctor Mcnair Additional Information: Patient seen on [address] [place] for follow up of pressure injuries to bilateral buttocks.Positioned patient to R side for wound assessment by patient and typewriter assembler. Wounds previously noted on bilateral buttocks are now close. Patient noted with stable eschar on fingers and all 10 toes.Patient needs to follow up with out patient wound care for management of this. Doctor Mcnair wrote orders for betadine to be painted on eschar. Zina Rodney [facility] Feb 02, 2017 12:46
== END 2017-02-02 12:13 | disposition home or self-care (01) | DRG 3 ==
LOC: NEPE 14:20 → NEDA 15:46 → N03A 20:08 → N05B 10-12 17:43 → N03B 10-13 16:36 → N05A 11-24 19:48 → N03A 11-26 16:31 → N05A 12-16 16:46 → N03B 12-27 10:06 → N03A 12-27 12:01 → N05A 12-30 19:19
PROVIDERS: ADMIT Internal Medicine; ATTEND Internal Medicine
PROC: 00C40ZZ Extirpation of Matter from Intracranial Subdural Space, Open Approach (ICD-10-PCS; 2016-10-07)
PROC: 009630Z Drainage of Cerebral Ventricle with Drainage Device, Percutaneous Approach (ICD-10-PCS; 2016-10-07)
PROC: 00Q20ZZ Repair Dura Mater, Open Approach (ICD-10-PCS; 2016-10-07)
PROC: B3171ZZ Fluoroscopy of Left Internal Carotid Artery using Low Osmolar Contrast (ICD-10-PCS; 2016-10-07)
PROC: 5A1945Z Respiratory Ventilation, 24-96 Consecutive Hours (ICD-10-PCS; 2016-10-07)
PROC: 03VG3DZ Restriction of Intracranial Artery with Intraluminal Device, Percutaneous Approach (ICD-10-PCS; principal; 2016-10-07 18:10)
PROC: 3E0 Administration, Physiological Systems and Anatomical Regions, Introduction (ICD-10-PCS; 2016-10-13)
PROC: B31F1ZZ Fluoroscopy of Left Vertebral Artery using Low Osmolar Contrast (ICD-10-PCS; 2016-10-13)
PROC: B3181ZZ Fluoroscopy of Bilateral Internal Carotid Arteries using Low Osmolar Contrast (ICD-10-PCS; 2016-10-13)
PROC: 5A1955Z Respiratory Ventilation, Greater than 96 Consecutive Hours (ICD-10-PCS; 2016-10-14)
PROC: 03HY32Z Insertion of Monitoring Device into Upper Artery, Percutaneous Approach (ICD-10-PCS; 2016-10-14)
PROC: 05H533Z Insertion of Infusion Device into Right Subclavian Vein, Percutaneous Approach (ICD-10-PCS; 2016-10-14)
PROC: 3E0 Administration, Physiological Systems and Anatomical Regions, Introduction (ICD-10-PCS; 2016-10-14)
PROC: B3171ZZ Fluoroscopy of Left Internal Carotid Artery using Low Osmolar Contrast (ICD-10-PCS; 2016-10-14)
PROC: 0BH17EZ Insertion of Endotracheal Airway into Trachea, Via Natural or Artificial Opening (ICD-10-PCS; 2016-10-14)
PROC: 03HY32Z Insertion of Monitoring Device into Upper Artery, Percutaneous Approach (ICD-10-PCS; 2016-10-15)
PROC: 3E0 Administration, Physiological Systems and Anatomical Regions, Introduction (ICD-10-PCS; 2016-10-17)
PROC: B3131ZZ Fluoroscopy of Right Common Carotid Artery using Low Osmolar Contrast (ICD-10-PCS; 2016-10-17)
PROC: B31F1ZZ Fluoroscopy of Left Vertebral Artery using Low Osmolar Contrast (ICD-10-PCS; 2016-10-17)
PROC: B3171ZZ Fluoroscopy of Left Internal Carotid Artery using Low Osmolar Contrast (ICD-10-PCS; 2016-10-17)
PROC: 3E0 Administration, Physiological Systems and Anatomical Regions, Introduction (ICD-10-PCS; 2016-10-19)
PROC: B3181ZZ Fluoroscopy of Bilateral Internal Carotid Arteries using Low Osmolar Contrast (ICD-10-PCS; 2016-10-19)
PROC: 30233N1 Transfusion of Nonautologous Red Blood Cells into Peripheral Vein, Percutaneous Approach (ICD-10-PCS; 2016-10-20)
PROC: 06HN33Z Insertion of Infusion Device into Left Femoral Vein, Percutaneous Approach (ICD-10-PCS; 2016-10-22)
PROC: 0B113F4 Bypass Trachea to Cutaneous with Tracheostomy Device, Percutaneous Approach (ICD-10-PCS; 2016-11-01)
PROC: 0DH63UZ Insertion of Feeding Device into Stomach, Percutaneous Approach (ICD-10-PCS; 2016-11-12)
PROC: 0BC38ZZ Extirpation of Matter from Right Main Bronchus, Via Natural or Artificial Opening Endoscopic (ICD-10-PCS; 2016-11-26)
PROC: 0BC78ZZ Extirpation of Matter from Left Main Bronchus, Via Natural or Artificial Opening Endoscopic (ICD-10-PCS; 2016-11-26)
PROC: 0BH17EZ Insertion of Endotracheal Airway into Trachea, Via Natural or Artificial Opening (ICD-10-PCS; 2016-11-26)
PROC: 5A1955Z Respiratory Ventilation, Greater than 96 Consecutive Hours (ICD-10-PCS; 2016-11-26)
PROC: 0BP1XFZ Removal of Tracheostomy Device from Trachea, External Approach (ICD-10-PCS; 2016-11-26)
PROC: 0B113F4 Bypass Trachea to Cutaneous with Tracheostomy Device, Percutaneous Approach (ICD-10-PCS; 2016-11-29)
PROC: 03LY3DZ Occlusion of Upper Artery with Intraluminal Device, Percutaneous Approach (ICD-10-PCS; 2016-12-01)
PROC: B31S1ZZ Fluoroscopy of Right Pulmonary Artery using Low Osmolar Contrast (ICD-10-PCS; 2016-12-01)
PROC: 02HV33Z Insertion of Infusion Device into Superior Vena Cava, Percutaneous Approach (ICD-10-PCS; 2016-12-04)
PROC: 0NR Head and Facial Bones, Replacement (ICD-10-PCS; 2016-12-27)
PROC: 0NR Head and Facial Bones, Replacement (ICD-10-PCS; 2016-12-27)
PROC: 0NR Head and Facial Bones, Replacement (ICD-10-PCS; 2016-12-27)
PROC: 0DP6XUZ Removal of Feeding Device from Stomach, External Approach (ICD-10-PCS; 2017-01-26)
DX: I60.32 Nontraumatic subarachnoid hemorrhage from left posterior communicating artery (principal); G93.6 Cerebral edema; J69.0 Pneumonitis due to inhalation of food and vomit; A41.9 Sepsis, unspecified organism; G93.49 Other encephalopathy; J96.21 Acute and chronic respiratory failure with hypoxia; R65.21 Severe sepsis with septic shock; R57.0 Cardiogenic shock; E43 Unspecified severe protein-calorie malnutrition; J96.22 Acute and chronic respiratory failure with hypercapnia; E22.2 Syndrome of inappropriate secretion of antidiuretic hormone; I82.621 Acute embolism and thrombosis of deep veins of right upper extremity; E27.40 Unspecified adrenocortical insufficiency; K56.7 Ileus, unspecified; E72.20 Disorder of urea cycle metabolism, unspecified; I82.613 Acute embolism and thrombosis of superficial veins of upper extremity, bilateral; G81.94 Hemiplegia, unspecified affecting left nondominant side; R04.89 Hemorrhage from other sites in respiratory passages; I67.848 Other cerebrovascular vasospasm and vasoconstriction; R47.01 Aphasia; G93.1 Anoxic brain damage, not elsewhere classified; G81.91 Hemiplegia, unspecified affecting right dominant side; Z99.11 Dependence on respirator [ventilator] status; I73.01 Raynaud's syndrome with gangrene; L89.154 Pressure ulcer of sacral region, stage 4; R13.10 Dysphagia, unspecified; I27.20 Pulmonary hypertension, unspecified; F17.210 Nicotine dependence, cigarettes, uncomplicated; R40.2432 Glasgow coma scale score 3-8, at arrival to emergency department; L27.0 Generalized skin eruption due to drugs and medicaments taken internally; K29.80 Duodenitis without bleeding; E87.6 Hypokalemia; T17.990A Other foreign object in respiratory tract, part unspecified in causing asphyxiation, initial encounter; Z78.1 Physical restraint status; I62.00 Nontraumatic subdural hemorrhage, unspecified; I50.9 Heart failure, unspecified; D50.9 Iron deficiency anemia, unspecified; E86.0 Dehydration; I11.0 Hypertensive heart disease with heart failure; E86.1 Hypovolemia; R56.9 Unspecified convulsions; J98.2 Interstitial emphysema; T38.0X5A Adverse effect of glucocorticoids and synthetic analogues, initial encounter
CPT/HCPCS: 31500; 31600; 36216; 36223; 36224; 36226; 36228; 36430; 36556; 36600; 37242; 61624; 61650; 61651; 70450; 70496; 70498; 71010; 71260; 71275; 74000; 74230; 75605; 75635; 75774; 75894; 76705; 76937; 80048; 80053; 80076; 80185; 80202; 81001; 81003; 82040; 82140; 82150; 82533; 82550; 82552; 82805; 82947; 82948; 83540; 83550; 83605; 83690; 83735; 83880; 83930; 83935; 84100; 84132; 84134; 84145; 84155; 84295; 84300; 84439; 84443; 84481; 84484; 85007; 85014; 85018; 85025; 85027; 85384; 85610; 85730; 86403; 86850; 86900; 86901; 86920; 87040; 87070; 87077; 87086; 87184; 87185; 87186; 87205; 87493; 87641; 88304; 93005; 93306; 93308; 93880; 93886; 93922; 93970; 94002; 94003; 94150; 94640; 94664; 94799; 95819; 99152; 99153; A7520; C1713; C1760; C1769; C1887; C1894; C9113; J0131; J0171; J0360; J0456; J0461; J0610; J0690; J0692; J1120; J1165; J1170; J1325; J1580; J1644; J1720; J1815; J1940; J1953; J2060; J2150; J2175; J2212; J2250; J2260; J2270; J2370; J2405; J2543; J2765; J3010; J3370; J3475; J3480; J7030; J7040; J7050; J7060; J7120; J7512; J7608; J7613; P9016; P9045; Q2009; Q9967

== ENCOUNTER → 2017-06-05 | Day surgery (SDC) | payer OTHER ==
[~2017-06-05] VITALS: Ht 177.8 cm; Wt 68.0 kg
[~2017-06-05] MED LIST changes: +ASCO500 PO; +BACITRACIN TOP OINT 15 GM TUBE ONE; +BLOOD PRESSURE PILL; +BUPIVACAINE/EPINEPHRINE 0.25% 50 ML VIAL ONE; +CHLORHEXIDINE GLUCONATE 2 % 1 PACK (2 CLOTHS) TOPICAL PRN; +DILT0.05 PO; +DILT90TA PO; +DOCU1CAP39 PO; +FAMOTIDINE 20 MG/2 ML VIAL ONE; +FERR325T20 PO; -GELFOAM SIZE 100 OTHER ONE; -GENTAMICIN SULFATE 80 MG/2 ML VIAL IRRIGATION ONE; -LACTATED RINGER'S 1000 ML INJ 1,000 ML IV ONE; +LACTATED RINGER'S 1000 ML IV PRN; +LIDOCAINE 1%/EPINEPHrine 1:100,000 SOLN 30 ML VIAL ONE; +LIDOCAINE HCL 2% 50 ML VIAL ONE; +METOPROLOL TARTRATE 25 MG TAB PO PRN; -NAPR500 PO; -PHENYLEPH/NS 1000 MCG/10 ML SYR IV ONE; +POVIDONE IODINE 5% (ANTISEPSIS KIT) 4 APPLICATIONS EACH NARE PRN; -PROPOFOL 200 MG/20 ML AMP IV ONE; +SODIUM CHLORID 0.9% 500 ML IV PRN; -THROMBIN (TOPICAL) 5,000 UNIT VIAL TOPICAL ONE; +ceFAZolin 1,000 MG/NS 100 ML IV SCH; -ePHEDrine/NS 25 MG/5 ML SYRINGE IV ONE
[2017-06-05 11:15] VITALS: BP 111/77; PULSE 78; RESP 16; TEMP 97.8; O2SAT 100
--- NOTE | 2017-06-06 00:02 | EKG ---
Date Performed: 06/05/2017 Time Performed: 07:49:00 PTAGE: 56 years EKG: Sinus rhythm WITH FIRST DEGREE AV BLOCK ABNORMAL ECG PREVIOUS TRACING : 10/15/2016 02.51 Compared to previous tracing, rate has decreased with now 1st degree AV block DOCTOR: Donnell Briones Interpretating Date/Time 06/06/2017 00:01:46
--- NOTE | 2017-06-06 20:16 | PD.OP ---
Operative Report Date of Surgery: Jun 05, 2017 Preoperative Diagnosis: (1) Dry gangrene Postoperative Diagnosis: (1) Dry gangrene Procedure: Left index finger transphalangeal amputation through the middle phalanx (64222) Anesthesia: General Surgeon: Greg Friedman [employer] Production Engineer(s): . 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 Patient did not want anything done for his digits except for the left index finger. Risks benefits and alternative treatments were discussed. Patient elected to assume the risks of a trans-middle phalanx amputation of the left index finger and primary closure. Informed consent was obtained. The surgical site was marked in the preoperative holding bay. Antibiotics were given on-call to the operating room. The patient was taken to the operating room and all pressure points were padded. A surgical timeout was performed. After the smooth induction of general anesthesia a digital block with quarter percent Marcaine with epinephrine was performed. The surgical site was prepped and draped in the usual sterile fashion. A digital tourniquet was fashioned using the cut finger of a surgical glove. The dry eschar was sharply removed. This was roughly at the DIP level, however the skin over the middle phalangeal head was extremely thin and attenuated. A lateral longitudinal incisions were made less than 1 cm in length. This gave access to the neurovascular bundles. The nerve and artery were and the nerve was held on tension and ligated proximally to keep the end away from the incision. The vessels were coagulated using the bipolar cautery. Following this the flexor digitorum profundus tendon was ligated. The distal aspect of the middle phalanx was sharply excised using rongeurs. The distal aspect of the flexor digitorum superficialis tendon was left intact and attached to the middle phalanx. Double opposing clamshell incisions were then designed. Skin was reapproximated without undue tension using interrupted 4-0 nylons in a horizontal mattress fashion. The tourniquet was released. The index finger amputation stump pinked up nicely. The surgical site was cleaned and dressed with bacitracin Xeroform gauze dry gauze fluffs a Malinda wrap and Coban. The patient was awoken from anesthesia and arrived stable and doing well to the PACU. All needle sponge and instrument counts were correct 2. Greg Friedman MD Jun 06, 2017 20:15
== END | disposition home or self-care (01) ==
LOC: PHSDC 06:04
PROVIDERS: ATTEND Student in an Organized Health Care Education/Training Program
DX: I96 Gangrene, not elsewhere classified (principal); I44.0 Atrioventricular block, first degree
CPT/HCPCS: 01830; 26951; 88305; 88311; 93005; J0690; J7120